=== PATIENT | male | born 1965 | race Caucasian/White ===

== ENCOUNTER 2023-03-01 13:42 | Outpatient (OUT) | payer BC, SELFPAY ==
[2023-03-01 14:45] LABS: Anion Gap 10.4; BUN Creatinine Ratio 17.8; Calcium 9.1 mg/dL (8.5-10.1); Carbon Dioxide 32.4 mmol/L (21.0-32.0); Chloride 103 mmol/L (98-107); Estimated GFR (African America >60 (>=60); Estimated GFR (Non-African Ame 54 (>=60); Glucose 119 mg/dL (74-106); Potassium 3.8 mmol/L (3.5-5.1); Sodium 142 mmol/L (136-145)
== END 2023-03-01 13:43 ==
PROVIDERS: PCP Family Medicine; Visit Provider Internal Medicine Interventional Cardiology
DX: I50.22 Chronic systolic (congestive) heart failure (principal)
CPT/HCPCS: 36415; 80048

== ENCOUNTER 2023-04-03 13:47 | Outpatient (OUT) | payer BC, SELFPAY ==
--- NOTE | 2023-04-03 12:00 | CA_ITS ---
Patient: TRACIE KOCH Exam Date: 04/03/2023 : 1965 Gender:M Ordering : DR VIET LUEVANO M.D. Admission #: [id number] Family : DR Parikhlas Dane . Order #: [id number] CLICK HERE TO VIEW EXAM ECHOCARDIOGRAM REPORT PROCEDURE: CA ECHO DOPPLER COMPLETE INDICATIONS: RT SIDED CHF, PULMONARY HTN, H/O MV Repair; 30 mm Physio-ring, commissuroplasty, CryoMAZE, PFO closure, 40 mm SCARLET AtriClip (03/19,) COMPARISON: None. DESCRIPTION: COMPLETE ECHOCARDIOGRAM Real-time transthoracic echocardiography with 2D, M-mode, spectral and color flow Doppler performed. QUALITY: Lumason contrast was administered due to suboptimal imaging for left ventricular opacification to improve delineation of endocardial boarders. LEFT VENTRICLE: Normal chamber size. Normal left ventricular wall thickness. LV EF: Global left ventricular systolic function is normal; visually estimated ejection fraction is 55 to 60%. Abnormal septal motion; this is not an unusual finding in the postoperative the patient. DIASTOLIC: Unable to assess diastolic function. ATRIAL SEPTUM: Inadequately seen. LEFT ATRIUM: Severe dilatation. RIGHT ATRIUM: Severe dilatation. RIGHT VENTRICLE: Moderate dilatation. Normal right ventricular systolic function. TRICUSPID VALVE: Poorly seen. Normal mobility and thickness. Mild to moderate tricuspid regurgitation. Moderate pulmonary hypertension. RVSP 56 mmHg MITRAL VALVE: Poorly seen. Mild mitral regurgitation. An annuloplasty ring is seen in the mitral position with abnormally high Doppler flows. No significant change from previous study. AORTIC VALVE: Poorly seen. Normal aortic valve. No evidence of aortic valve stenosis. No aortic regurgitation. AORTIC ROOT: Normal diameter and appearance. PULMONIC VALVE: Not well visualized. No stenosis. Trivial regurgitation. PERICARDIUM: No evidence of pericardial effusion. IVC: IVC is dilated without collapse CONCLUSION: 1. Global left ventricular systolic function is normal; visually estimated ejection fraction is 55 to 60% 2. Abnormal septal motion 3. Severe biatrial enlargement 4. The right ventricle is moderately dilated with normal systolic function 5. Mild to moderate tricuspid regurgitation 6. Moderately elevated right ventricular systolic pressure; RVSP 56 mmHg 7. An annuloplasty ring is seen in the mitral position with abnormally high Doppler flows 8. Mild mitral regurgitation 9. Valvular structures are poorly seen Adult Echocardiography Procedure Report Left Ventricle LVEDD (3.7 - 5.6 cm): 4.77 cm LVIVS thickness (0.6 - 1.2 cm): 0.91 cm LVOT Max Gradient: 2.84 mm[Hg] Peak Velocity (LVOT): 0.84 m/s LVOT Diameter 2.33 cm Left Atrium Mitral Valve Right Ventricle Aorta Ascending Ao Diam: 3.09 cm Aortic Valve AoV Area (Peak Kane): 3.25 cm2, 3.25 cm2 Peak Velocity(Antegrade Flow): 1.10 m/s Peak Gradient(Antegrade Flow): 4.85 mm[Hg] Tricuspid Valve Peak Velocity (Regurgitant Flow): 2.68 m/s, 3.13 m/s, 3.19 m/s Pulmonic Valve Peak Gradient: 3.87 mm[Hg] Right Atrium Dictated by: Piotr Jenkins M.D. on 04/04/2023 at 18:28 Approved by: Piotr Jenkins M.D. on 04/04/2023 at 18:34
== END 2023-04-03 13:48 | disposition home or self-care (01) ==
LOC: CARD 13:47
PROVIDERS: PCP Family Medicine; Visit Provider Internal Medicine Interventional Cardiology
DX: I50.813 Acute on chronic right heart failure (principal); I27.20 Pulmonary hypertension, unspecified; R93.1 Abnormal findings on diagnostic imaging of heart and coronary circulation; I08.1 Rheumatic disorders of both mitral and tricuspid valves; Z95.2 Presence of prosthetic heart valve
CPT/HCPCS: 93306; C8929

== ENCOUNTER 2023-08-29 07:51 | Outpatient (OUT) | payer BC, SELFPAY ==
[2023-08-29 08:07] LABS: Basophils Absolute Auto 0.1 10^3/uL (0.0-0.1); Basophils Percent Auto 1.1 % (0.2-2.0); Eosinophils Absolute Auto 0.3 10^3/uL (0.0-0.7); Eosinophils Percent Auto 3.3 % (0.9-7.0); Hematocrit 45.4 % (42.0-54.0); Hemoglobin 14.6 g/dL (14.0-18.0); Immature Granulocytes Abs Auto 0.05 10^3/uL (0.00-0.03); Immature Granulocytes Pct Auto 0.5 % (0.0-0.5); Lymphocytes Absolute Auto 2.6 10^3/uL (1.2-3.8); Lymphocytes Percent Auto 26.3 % (20.5-60.0); Mean Corpuscular HGB Conc 32.2 g/dL (29.9-35.2); Mean Corpuscular Hemoglobin 30.4 pg (25.9-34.0); Mean Corpuscular Volume 94.6 fL (80.0-94.0); Mean Platelet Volume 9.4 fL (9.5-13.5); Monocytes Percent Auto 10.1 % (1.7-12.0); Neutrophils Absolute Auto 5.8 10^3/uL (1.4-6.5); Neutrophils Percent Auto 58.7 % (43.0-75.0); Platelet Count 214 10^3/uL (150-450); Red Cell Distribution Width 13.1 % (11.0-15.0); White Blood Count 9.9 10^3/uL (4.0-11.0)
[2023-08-29 09:03] LABS: Estimated Average Glucose 123 mg/dL; Glycohemoglobin A1C 5.9 % (4.5-6.2)
[2023-08-29 09:09] LABS: Alanine Aminotransferase 22 U/L (16-63); Albumin Globulin Ratio 1.1; Albumin Level 3.8 g/dL (3.4-5.0); Alkaline Phosphatase 76 U/L (46-116); Anion Gap 9.2; Aspartate Amino Transferase 17 U/L (15-37); BUN Creatinine Ratio 18.7; Bilirubin Total 0.6 mg/dL (0.2-1.0); Calcium 8.8 mg/dL (8.5-10.1); Carbon Dioxide 33.1 mmol/L (21.0-32.0); Chloride 105 mmol/L (98-107); Chol HDL Ratio 3.9; Cholesterol 153 mg/dL (<=200); Estimated GFR (African America 58 (>=60); Estimated GFR (Non-African Ame 48 (>=60); Free T3 1.92 pg/mL (2.18-3.98); Globulin 3.6 g/dL; Glucose 108 mg/dL (74-106); HDL Cholesterol 39 mg/dL (40-60); Potassium 4.3 mmol/L (3.5-5.1); Sodium 143 mmol/L (136-145); Thyroid Stimulating Hormone 3.871 uIU/mL (0.358-3.740); Total Protein 7.4 g/dL (6.4-8.2); Triglycerides 97 mg/dL (<=150); VLDL CHOLESTEROL 19.4 mg/dL
[2023-08-29 09:16] LABS: Prostate Specific Antigen Scrn 0.54 ng/mL (<=4.00)
[2023-08-29 09:31] LABS: Uric Acid 10.9 mg/dL (3.5-7.2)
== END 2023-08-29 07:52 | disposition home or self-care (01) ==
LOC: LAB 07:52
PROVIDERS: PCP Family Medicine; Visit Provider Family Medicine
DX: Z00.00 Encounter for general adult medical examination without abnormal findings (principal); E78.5 Hyperlipidemia, unspecified; R73.09 Other abnormal glucose; Z12.5 Encounter for screening for malignant neoplasm of prostate; M25.50 Pain in unspecified joint
CPT/HCPCS: 36415; 80053; 80061; 83036; 84436; 84443; 84481; 84550; 85025; G0103

== ENCOUNTER 2023-10-04 13:27 | Outpatient (OUT) | payer BC, SELFPAY ==
--- OUTSIDE RECORDS SUMMARY | 2023-10-04 13:31 | XMS_ITS | CCD ---
Author Name Unknown Address [address] [place] [address] Organization [facility] [place] Care Team Providers Care Cyber Defense Incident Responder Name Role Phone TITUS VILLEGAS Referring Unavailable SELF, REFERRED Primary Care Unavailable MASROOR, TIMBO Attending Unavailable JIAN SYED Admitting Unavailable DC Procedure Practitioner Unavailab KRYS De La Torre Surgeon Unavailable DC Procedure Practitioner Unavailab le ILAN CABA Surgeon Unavailable DC Procedure Practitioner Unavailab le HEIDEOR, TIMBO Surgeon Unavailable DC Procedure Practitioner Unavailab MAY De La Rosa Surgeon Unavailable SHIKHA ALAMIR, MOSHRIK Attending Unavailable SHIKHA ALAMIR, MOSHRIK Admitting Unavailable HEIDEOR, TIMBO Referring Unavailable TITUS VILLEGAS Primary Care Unavailable EDGAR, DR MELIDA Owen Consulting Unavailable NELLY ., DR QURESHI Primary Care Unavailable WEST, DR MELIDA Owen Attending Unavailable WEST, DR MELIDA Owen Admitting Unavailable ZIEBER, DR LYNDA Gonzalez Consulting Unavailable WEST, DR MELIDA Owen Consulting Unavailable NELLY ., DR QURESHI Primary Care Unavailable WEST, DR MELIDA Owen Attending Unavailable WEST, DR MELIDA Owen Admitting Unavailable WEST, DR MELIDA Owen Consulting Unavailable NELLY ., DR QURESHI Primary Care Unavailable WEST, DR MELIDA Owen Attending Unavailable WEST, DR MELIDA Owen Admitting Unavailable WEST, DR MELIDA Owen Consulting Unavailable NELLY ., DR QURESHI Primary Care Unavailable WEST, DR MELIDA Owen Attending Unavailable WEST, DR MELIDA Owen Admitting Unavailable ZIEBER, DR LYNDA Gonzalez Consulting Unavailable WEST, DR MELIDA Owen Consulting Unavailable NELLY ., DR QURESHI Primary Care Unavailable WEST, DR MELIDA Owen Attending Unavailable WEST, DR MELIDA Owen Admitting Unavailable ZIEBER, DR LYNDA Gonzalez Consulting Unavailable WEST, DR MELIDA Owen Consulting Unavailable NELLY ., DR QURESHI Primary Care Unavailable WEST, DR MELIDA Owen Attending Unavailable EDGAR, DR MELIDA Owen Admitting Unavailable KAI RUFFIN Consulting Unavailable NELLY Lloyd, DR QURESHI Primary Care Unavailable LALY, KAI Attending Unavailable LALYAMBERA Admitting Unavailable MOUKARBEL, DR LLANOS Consulting Unavailable HOY ., DR QURESHI Primary Care Unavailable MOUKARBEL, DR LLANOS Attending Unavailable MOUKARBEL, DR LLANOS Admitting Unavailable MOUKARBEL, DR LLANOS Consulting Unavailable HOY ., DR QURESHI Primary Care Unavailable MOUKARBEL, DR LLANOS Attending Unavailable MOUKARBEL, DR LLANOS Admitting Unavailable LALYKAI Consulting Unavailable HOY ., DR QURESHI Primary Care Unavailable LALY, KAI Attending Unavailable LALY, KAI Admitting Unavailable MOUKARBEL, DR LLANOS Consulting Unavailable HOY ., DR QURESHI Primary Care Unavailable MISC, DR PACK Attending Unavailable MISC, DR PACK Admitting Unavailable HOY ., DR QURESHI Consulting Unavailable HOY ., DR QURESHI Primary Care Unavailable HOY ., DR QURESHI Attending Unavailable HOY ., DR QURESHI Admitting Unavailable HOY ., DR QURESHI Primary Care Unavailable HOY ., DR QURESHI Attending Unavailable HOY ., DR QURESHI Admitting Unavailable WEST, DR MELIDA Owen Consulting Unavailable HOY ., DR QURESHI Primary Care Unavailable WEST, DR MELIDA Owen Attending Unavailable WEST, DR MELIDA Owen Admitting Unavailable WEST, DR MELIDA Owen Consulting Unavailable HOY ., DR QURESHI Primary Care Unavailable WEST, DR MELIDA Owen Attending Unavailable WEST, DR MELIDA Owen Admitting Unavailable ZIEBER, DR LYNDA Gonzalez Consulting Unavailable WEST, DR MELIDA Owen Consulting Unavailable HOY ., DR QURESHI Primary Care Unavailable WEST, DR MELIDA Owen Attending Unavailable WEST, DR MELIDA Owen Admitting Unavailable MOUKARBEL, VIET Attending Unavailable MOUKARBEL, VIET Attending Unavailable VARGAS URIOSTEGUI Attending Unavailable MOUKARBEL, VIET Attending Unavailable Problems Active Problems Problem Classification Problem Date Documented Da te Episodic/Chronic Cardiac dysrhythmias (4 sources) Paroxysmal atrial fibrillation; Translations: [Atrial fibrillation] Onset: 10-16-2022 Chronic Congestive heart failure; nonhypertensive (20 sources) Chronic systolic (congestive) heart failure; Translations: [Acute on chronic right heart failure] Onset: 06-27-2022 Chronic Heart valve disorders (1 source) Rheumatic tricuspid insufficiency; Translations: [RHEUMATIC TRICUSPID INSUFFICIENCY] Onset: 11-15-2022 Chronic Pulmonary heart disease (2 sources) Pulmonary hypertension, unspecified; Translations: [Pulmonary hypertension, unspecified] Onset: 02-11-2023 Chronic Residual codes; unclassified (3 sources) Other specified postprocedural states; Translations: [OTH SPECIFIED POSTPROCEDURAL STATES] Onset: 10-16-2022 Episodic Unclassified (1 source) Atrial septal defect, unspecified; Translations: [Atrial septal defect, unspecified] Onset: 02-11-2023 Past or Other Problems Problem Classification Problem Date Documented Da te Episodic/Chronic Other aftercare (4 sources) Encounter for surgical aftercare following surgery on the circulatory system; Translations: [ENC SURG AFTRCARE FLW SURG CIRC SYS] Onset: 2 Episodic Other screening for suspected conditions (not mental disorders or infectious disease) (1 source) Encounter for screening for malignant neoplasm of prostate; Translations: [ENC SCREEN MALIG NEOPLASM PROSTATE] Onset: 2 Episodic Phlebitis; thrombophlebitis and thromboembolism (9 sources) Phlebitis and thrombophlebitis of superficial vessels of right lower extremity; Translations: [Phlebitis and thrombophlebitis of superficial vessels of left lower extremity] Onset: 2 Episodic Residual codes; unclassified (2 sources) Edema; Translations: [Edema] Onset: 3 Episodic Unclassified (1 source) Atrial septal defect, unspecified; Translations: [Atrial septal defect, unspecified] Onset: 3 Varicose veins of lower extremity (5 sources) Varicose veins of bilateral lower extremities with pain; Translations: [VARICOSE VNS UZIEL LOW EXTREM W/PAIN] Onset: 2 Episodic Results Test Name Value Interpretation Reference Range Facility Office Visiton 04-08-2023 Follow-up visit [id number] Tracie Crain 1965 M Date Provider Department Center 04/08/2023 [facility] Family History Problem Relation Age of Onset Atrial fibrillation Mother Alzheimer's disease Mother Family Status - Relation Status Age at Mother Level of Service:62886 DC OFFICE/OUTPATIENT ESTABLISHED MOD MDM 30-39 MIN Normal [facility] Office Visiton 02-11-2023 Follow-up visit [id number] Tracie Crain 1965 M Date Provider Department Center 02/11/2023 [facility] Family History Problem Relation Age of Onset Atrial fibrillation Mother Alzheimer's disease Mother Family Status - Relation Status Age at Mother Level of Service:38132 DC OFFICE/OUTPATIENT ESTABLISHED MOD MDM 30-39 MIN Normal [facility] ECHOCARDIO M/2D COMPLETEon 0 02-05-2023 ECHOCARDIO M/2D COMPLETE Patient: TRACIE CRAIN Exam Date: 02/05/2023 : 1965 Gender:M Ordering : DR VIET SALAS M.D. Admission #: [id number] Family : Order #: [id number] CLICK HERE TO VIEW EXAM ECHOCARDIOGRAM REPORT PROCEDURE: CARDIO PULMONARY ECHOCARDIO M/2D COMP INDICATIONS: Chronic systolic heart failure, Acute on chronic right-sided heart failure COMPARISON: None. DESCRIPTION: COMPLETE ECHOCARDIOGRAM Real-time transthoracic echocardiography with 2D, M-mode, spectral and color flow Doppler performed. QUALITY: Technical quality was good. LEFT VENTRICLE: Normal chamber size. Normal left ventricular wall thickness. D-shaped septum consistent with right ventricular pressure and/or volume overload. LV EF: Global left ventricular systolic function is normal. Calculated left ventricular ejection fraction is 60%. Abnormal septal motion. DIASTOLIC: Unable to assess diastolic function. ATRIAL SEPTUM: Inadequately seen. LEFT ATRIUM: Severe dilatation. RIGHT ATRIUM: Severe dilatation. RIGHT VENTRICLE: Severe dilatation. Severely decreased right ventricular systolic function. TRICUSPID VALVE: Normal mobility and thickness. No stenosis with moderate to severe regurgitation. Severe pulmonary hypertension. RVSP 75mmHg MITRAL VALVE: Mild mitral regurgitation. Mitral valve ring is well seated in the mitral position with elevated velocities and gradients. Moderate mitral valve stenosis. MVA 1.3cm2, MV Vmax 2.07m/s, MV mean gradient 6.7mmHg. AORTIC VALVE: Normal trileaflet appearance. No visible sclerosis. Normal leaflet mobility. No evidence of aortic valve stenosis. No aortic regurgitation. AORTIC ROOT: Normal diameter and appearance. PULMONIC VALVE: Normal thickness and mobility. No stenosis. No regurgitation. PERICARDIUM: No evidence of pericardial effusion. IVC: Severe dilatation. Measuring 3.0cm with no collapse. CONCLUSION: 1. Global left ventricular systolic function is normal; visually estimated ejection fraction is 60 to 65%. 2. D-shaped septum consistent with right ventricular pressure and/or volume overload. 3. Severe biatrial enlargement. 4. The right ventricle is severely dilated with significantly reduced systolic function. 5. Moderate to severe tricuspid regurgitation. 6. Severely elevated right-sided pressures; RVSP 75 mmHg. 7. Mitral valve ring is seen with elevated velocities; moderate mitral valve stenosis. Mild mitral regurgitation. Adult Echocardiography Procedure Report Left Ventricle LVEDD (3.7 - 5.6 cm): 4.98 cm LVESD (2.2 - 4.0 cm): 3.17 cm LVIVS thickness (0.6 - 1.2 cm): 1.15 cm LVPW thickness (0.5 - 1.0 cm): 0.96 cm e': 0.08 m/s E - e': 15.89 LVOT Max Gradient: 2.89 mm[Hg] Peak Velocity (LVOT): 0.85 m/s Mean Velocity (LVOT): 0.62 m/s LVOT Diameter 2.25 cm Left Ventricular Ejection Fraction: 65.74 %, 65.74 % Left Atrium LA Volume Index (2D A2C): 126.61 ml, 126.61 ml Left Atrium Systolic Dimension: 5.75 cm Mitral Valve MV E to A Ratio: 64.41 Mitral Valve A-Wave Peak Velocity: 0.02 m/s Mitral Valve E-Wave Peak Velocity: 1.32 m/s Right Ventricle RV Internal Diastolic Dimension: 7.00 cm, 7.02 cm Aorta AO Root Diam: 3.16 cm Ascending Ao Diam: 2.85 cm Aortic Valve AoV Area (Peak Kane): 2.78 cm2, 2.78 cm2 AoV Area (VTI): 2.62 cm2, 2.62 cm2 Peak Velocity(Antegrade Flow): 1.22 m/s Peak Gradient(Antegrade Flow): 5.93 mm[Hg] Mean Velocity(Antegrade Flow): 0.88 m/s Mean Gradient(Antegrade Flow): 3.48 mm[Hg] Velocity Time Integral: 25.68 cm Tricuspid Valve Peak Velocity (Regurgitant Flow): 3.39 m/s, 3.55 m/s, 3.86 m/s, 3.77 m/s Peak Velocity: 0.63 m/s Pulmonic Valve Mean Gradient: 3.10 mm[Hg], 3.53 mm[Hg], 3.38 mm[Hg] Mean Velocity: 0.86 m/s, 0.91 m/s, 0.89 m/s Peak Velocity: 1.12 m/s, 1.21 m/s, 1.21 m/s Peak Gradient: 5.00 mm[Hg], 5.90 mm[Hg], 5.90 mm[Hg] Right Atrium Right Atrium Systolic Pressure: 197.88 ml, 197.88 ml Dictated by: Piotr Jenkins M.D. on 02/05/2023 at 16:25 Approved by: Piotr Jenkins M.D. on 02/05/2023 at 16:31 Normal [facility] BNPon 12-19-2022 Natriuretic peptide B (Bld) [Mass/Vol] 859.0 pg/mL Normal <=900.0 [facility] Comment on above: Performed By: #### B MP, BNP #### [facility] [address] [place] [address] Dr. Leonie Beckham PROF CHEM 8 (BAS METB)on Anion gap [Moles/Vol] 9.9 mmol/L Normal [facility] Comment on above: Performed By: #### B MP, BNP #### [facility] [address] [place] [address] Dr. Leonie Beckham Calcium [Mass/Vol] 9.4 mg/dL Normal 8.5-10.1 [facility] Comment on above: Performed By: #### B MP, BNP #### [facility] [address] [place] [address] Dr. Leonie Beckham Chloride [Moles/Vol] 102 mmol/L Normal 98-107 [facility] Comment on above: Performed By: #### B MP, BNP #### [facility] [address] [place] [address] Dr. Leonie Beckham CO2 [Moles/Vol] 32.0 mmol/L Normal 21.0-32.0 [facility] Comment on above: Performed By: #### B MP, BNP #### [facility] [address] [place] [address] Dr. Leonie Beckham Creatinine [Mass/Vol] 1.17 mg/dL Normal 0.70-1.30 [facility] Comment on above: Performed By: #### B MP, BNP #### [facility] [address] [address] [address] Leonie Beckham EGFR-AF PAKISTANI >60 Normal >=60 [facility] Comment on above: Performed By: #### B MP, BNP #### [facility] [address] [address] [address] Leonie Beckham EGFR-NON AF PAKISTANI >60 Normal >=60 [facility] Comment on above: Performed By: #### B MP, BNP #### [facility] [address] [address] [address] Leonie Beckham Glucose [Mass/Vol] 106 mg/dL Normal 74-106 [facility] Comment on above: Performed By: #### B MP, BNP #### [facility] [address] [address] [address] Leonie Beckham Potassium [Moles/Vol] 3.9 mmol/L Normal 3.5-5.1 [facility] Comment on above: Performed By: #### B MP, BNP #### [facility] [address] [address] [address] Leonie Beckham Sodium [Moles/Vol] 140 mmol/L Normal 136-145 [facility] Comment on above: Performed By: #### B MP, BNP #### [facility] [address] [address] [address] Leonie Beckham Urea nitrogen [Mass/Vol] 25.0 mg/dL Critically high 7.0-18.0 [facility] Comment on above: Performed By: #### B MP, BNP #### [facility] [address] [address] [address] Leonie Beckham Urea nitrogen/Creatinine [Mass ratio] 21.4 mg/mg Normal [facility] Comment on above: Performed By: #### B MP, BNP #### [facility] [address] [address] [address] Leonie Beckham Office Visiton 11-19-2022 Follow-up visit [id number] Tracie Crain 1965 Date Provider Department Center 11/19/2022 [facility] CARD [facility] Family History Problem Relation Age of Onset Atrial fibrillation Mother Alzheimer's disease Mother Family Status - Relation Status Age at Mother Level of Service:00718 DC OFFICE/OUTPATIENT ESTABLISHED MOD MDM 30-39 MIN Reason for Visit and Comments: Congestive Heart Failure [127] Valve Disorder [3372] Normal [facility] ECHOCARDIO M/2D COMPLETEon 0 11-09-2022 ECHOCARDIO M/2D COMPLETE Patient: TRACIE CRAIN Exam Date: 11/09/2022 : 1965 Gender:M Ordering : DR VIET SALAS M.D. Admission #: [id number] Family : TITUS VILLEGAS . Order #: [id number] CLICK HERE TO VIEW EXAM ECHOCARDIOGRAM REPORT PROCEDURE: CARDIO PULMONARY ECHOCARDIO M/2D COMP INDICATIONS: Chronic right-sided heart failure, s/p mitral valve repair (ring) COMPARISON: None. DESCRIPTION: COMPLETE ECHOCARDIOGRAM Real-time transthoracic echocardiography with 2D, M-mode, spectral and color flow Doppler performed. QUALITY: Technical quality was good. 75 305# BP 126/74 LEFT VENTRICLE: Normal chamber size. Mild concentric left ventricular hypertrophy. Abnormal septal motion due to RV pressure or volume overload. LV EF: Normal left ventricular ejection fraction, (>55%). DIASTOLIC: ATRIAL SEPTUM: LEFT ATRIUM: Severe dilatation. RIGHT ATRIUM: Severe dilatation. RIGHT VENTRICLE: Moderate to Severe dilatation. Decreased right ventricular systolic function. TRICUSPID VALVE: Normal mobility and thickness. No stenosis with moderate regurgitation. Doppler studies reveal severely (>60) elevated right sided pressures. RVSP 73 mmHg MITRAL VALVE: Mild mitral valve stenosis. Trivial mitral regurgitation. Mean diastolic gradient 7 mmHg at heart rate of 78. Mitral valve ring visualized. AORTIC VALVE: Normal trileaflet appearance. No visible sclerosis. Normal leaflet mobility. No evidence of aortic valve stenosis. No aortic regurgitation. AORTIC ROOT: Normal diameter and appearance. PULMONIC VALVE: Normal thickness and mobility. No stenosis. Trivial regurgitation. PERICARDIUM: No evidence of pericardial effusion. IVC: Dilated IVC with partial collapse. PLEURA: CONCLUSION: 1. Left ventricle is normal in size with normal systolic function. LVEF is 55 to 60%. 2. Moderate to severe right ventricular dilatation with reduced systolic function. 3. Mitral valve status post ring repair with mildly increased Doppler flows consistent with mild stenosis. 4. Moderate tricuspid regurgitation. 5. Severely elevated right-sided pressures. 6. Severe biatrial dilatation. 7. The IVC is dilated with partial inspiratory collapse. Adult Echocardiography Procedure Report Left Ventricle LVEDD (3.7 - 5.6 cm): 4.14 cm LVESD (2.2 - 4.0 cm): 2.82 cm LVIVS thickness (0.6 - 1.2 cm): 1.37 cm LVPW thickness (0.5 - 1.0 cm): 1.31 cm e': 0.10 m/s LVOT Max Gradient: 3.41 mm[Hg] Peak Velocity (LVOT): 0.92 m/s Mean Velocity (LVOT): 0.71 m/s LVOT Diameter 2.50 cm Left Ventricular Ejection Fraction: 55-60 % Left Atrium LA Volume Index (2D A2C): 100.55 ml, 100.55 ml Left Atrium Systolic Dimension: 5.48 cm Mitral Valve Right Ventricle Aorta AO Root Diam: 3.52 cm Aortic Valve AoV Area (Peak Kane): 4.13 cm2, 4.13 cm2 Peak Velocity(Antegrade Flow): 1.09 m/s Peak Gradient(Antegrade Flow): 4.77 mm[Hg] Tricuspid Valve Peak Velocity (Regurgitant Flow): 3.51 m/s, 3.83 m/s, 3.84 m/s, 3.82 m/s Peak Velocity: 0.96 m/s Pulmonic Valve Peak Velocity: 0.98 m/s, 1.04 m/s Peak Gradient: 3.81 mm[Hg], 4.33 mm[Hg] Right Atrium Right Atrium Systolic Pressure: 109.59 ml, 109.59 ml Dictated by: Viet Salas M.D. on 11/09/2022 at 16:26 Approved by: Viet Salas M.D. on 11/09/2022 at 16:31 Normal [facility] Office Visiton 10-16-2022 Follow-up visit [id number] Tracie Crain 1965 M Date Provider Department Center 10/16/2022 [id number] URIOSETGUI [facility] Family History Problem Relation Age of Onset Atrial fibrillation Mother Alzheimer's disease Mother Family Status - Relation Status Age at Mother Level of Service:36958 DC OFFICE/OUTPATIENT ESTABLISHED LOW MDM 20-29 MIN Reason for Visit and Comments: Edema [[id number]] Congestive Heart Failure [127] Atrial Fibrillation [80] Normal [facility] PROF CHEM 8 (BILLY CHRISTIANSEN)on Anion gap [Moles/Vol] 8.0 mmol/L Normal [facility] Comment on above: Performed By: #### B MP #### [facility] [address] [address] [address] Leonie Beckham Calcium [Mass/Vol] 8.6 mg/dL Normal 8.5-10.1 [facility] Comment on above: Performed By: #### B MP #### [facility] [address] [place] [address] Dr. Leonie Beckham Chloride [Moles/Vol] 102 mmol/L Normal 98-107 [facility] Comment on above: Performed By: #### B MP #### [facility] [address] [address] [address] Leonie Beckham CO2 [Moles/Vol] 31.5 mmol/L Normal 21.0-32.0 [facility] Comment on above: Performed By: #### B MP #### [facility] [address] [place] [address] Dr. Leonie Beckham Creatinine [Mass/Vol] 1.13 mg/dL Normal 0.70-1.30 [facility] Comment on above: Performed By: #### B MP #### [facility] [address] [address] [address] Leonie Beckham EGFR-AF PAKISTANI >60 Normal >=60 [facility] Comment on above: Performed By: #### B MP #### [facility] [address] [address] [address] Leonie Beckham EGFR-NON AF PAKISTANI >60 Normal >=60 [facility] Comment on above: Performed By: #### B MP #### [facility] [address] [place] [address] Dr. Leonie Beckham Glucose [Mass/Vol] 100 mg/dL Normal 74-106 [facility] Comment on above: Performed By: #### B MP #### [facility] [address] [address] [address] Leonie Beckham Potassium [Moles/Vol] 3.5 mmol/L Normal 3.5-5.1 [facility] Comment on above: Performed By: #### B MP #### [facility] [address] [address] [address] Leonie Beckham Sodium [Moles/Vol] 138 mmol/L Normal 136-145 [facility] Comment on above: Performed By: #### B MP #### [facility] [address] [address] [address] Leonie Beckham Urea nitrogen [Mass/Vol] 24.0 mg/dL Critically high 7.0-18.0 [facility] Comment on above: Performed By: #### B MP #### [facility] [address] [address] [address] Leonie Beckham Urea nitrogen/Creatinine [Mass ratio] 21.2 mg/mg Normal [facility] Comment on above: Performed By: #### B MP #### [facility] [address] [address] [address] Leonie Beckham ECHOCARDIO M/2D COMPLETEon 0 06-27-2022 ECHOCARDIO M/2D COMPLETE Patient: TRACIE CRAIN Exam Date: 06/27/2022 : 1965 Gender:M Ordering : KAI RUFFIN [facility] Admission #: [id number] Family : DR TITUS VILLEGAS . Order #: [id number] CLICK HERE TO VIEW EXAM ECHOCARDIOGRAM REPORT PROCEDURE: CARDIO PULMONARY ECHOCARDIO M/2D COMP INDICATIONS: Systolic heart failure, mitral valve ring COMPARISON: None. DESCRIPTION: COMPLETE ECHOCARDIOGRAM Real-time transthoracic echocardiography with 2D, M-mode, spectral and color flow Doppler performed. QUALITY: Technical quality was good. 75 300# BP 116/78 LEFT VENTRICLE: Normal chamber size. Abnormal septal motion due to RV pressure or volume overload. LV EF: Normal left ventricular ejection fraction, (55%). DIASTOLIC: ATRIAL SEPTUM: LEFT ATRIUM: Severe dilatation. RIGHT ATRIUM: Severe dilatation. RIGHT VENTRICLE: Moderate dilatation. Decreased right ventricular systolic function. TRICUSPID VALVE: Normal mobility and thickness. No stenosis with moderate regurgitation. Doppler studies reveal severely (>60) elevated right sided pressures. RVSP is 70 mmHg MITRAL VALVE: Mild mitral valve stenosis, mean diastolic gradient 8 mmHg at a heart rate of 81 bpm. Trivial mitral regurgitation. Mitral valve ring is visualized. AORTIC VALVE: Normal trileaflet appearance. Thickened aortic valve. Normal leaflet mobility. No evidence of aortic valve stenosis. No aortic regurgitation. AORTIC ROOT: Normal diameter and appearance. PULMONIC VALVE: Normal thickness and mobility. No stenosis. No regurgitation. PERICARDIUM: No evidence of pericardial effusion. IVC: Dilated IVC (3.1 cm), with no collapse. PLEURA: CONCLUSION: 1. The left ventricle is normal in size. Systolic function is normal. LVEF is 55%. 2. The right ventricle is moderately dilated with reduced systolic function. 3. Mitral valve is status post ring repair with mildly increased Doppler flows. 4. Moderate tricuspid regurgitation. 5. Severely elevated right-sided pressures. RVSP is 70 mmHg. 6. The IVC is dilated with no inspiratory collapse. 7. No pericardial effusion. Adult Echocardiography Procedure Report Left Ventricle LVEDD (3.7 - 5.6 cm): 4.98 cm LVESD (2.2 - 4.0 cm): 3.46 cm LVIVS thickness (0.6 - 1.2 cm): 1.34 cm LVPW thickness (0.5 - 1.0 cm): 1.20 cm LVOT Max Gradient: 4.43 mm[Hg] Peak Velocity (LVOT): 1.05 m/s Mean Velocity (LVOT): 0.71 m/s LVOT Diameter 2.53 cm Left Ventricular Ejection Fraction: 55% Left Atrium LA Volume Index (2D A2C): 115.35 ml, 115.35 ml Left Atrium Systolic Dimension: 5.59 cm Mitral Valve Right Ventricle Aorta AO Root Diam: 3.64 cm Aortic Valve AoV Area (Peak Kane): 4.19 cm2, 4.24 cm2 AoV Area (VTI): 3.81 cm2, 3.59 cm2 Peak Velocity(Antegrade Flow): 1.25 m/s, 1.27 m/s Peak Gradient(Antegrade Flow): 6.20 mm[Hg], 6.49 mm[Hg] Mean Velocity(Antegrade Flow): 0.84 m/s, 0.88 m/s MeanGradient (Antegrade Flow): 3.27 mm[Hg], 3.56 mm[Hg] Velocity Time Integral: 28.27 cm, 25.04 cm Tricuspid Valve Peak Velocity (Regurgitant Flow): 3.34 m/s, 3.49 m/s, 3.46 m/s, 3.49 m/s, 3.46 m/s, 3.71 m/s Pulmonic Valve Peak Velocity: 0.90 m/s, 0.91 m/s Peak Gradient: 3.22 mm[Hg], 3.29 mm[Hg] Right Atrium Right Atrium Systolic Pressure: 94.02 ml, 94.02 ml Dictated by: Viet Salas M.D. on 06/27/2022 at 18:16 Approved by: Viet Salas M.D. on 06/27/2022 at 18:23 Normal [facility] VC CONSULT FOLLOWUPon 2021 VC CONSULT FOLLOWUP Patient: TRACIE CRAIN Exam Date: 06/13/2022 : 1965 Gender:M Ordering : DR MELIDA CUELLAR M.D. Admission #: [id number] Family : Order #: [id number] CLICK HERE TO VIEW EXAM RADIOLOGY REPORT PROCEDURE: [facility] CONSULTATION FOLLOWUP [facility] - OFFICE VISIT FOLLOW UP COMPARISON: VC CONSULT FOLLOWUP, 06/01/2022. VC CONSULT FOLLOWUP, 05/14/2022. PROGRESS NOTES: The patient reports minimal discomfort following micro foam chemical ablation of the left leg the patient did take some over the counter Tylenol. The patient has worn his compression stocking. The patient has followed our recommendations to walk 20-30 minutes once or twice per day since the procedure. Physical exam demonstrates multiple thrombosed varicose veins. Extensive patent bilateral incompetent varicose and reticular veins remain. Review of the ultrasound performed the same day demonstrates occlusive thrombus extending throughout the treated right leg varicose veins. Multiple dilated incompetent varicose veins remain. The patient would like to proceed with additional treatments as he continues to have leg pain, we will attempt pre-certification for additional treatment. IMPRESSION: 1. Successful ablation of right leg varicose veins 2. Persistent bilateral incompetent varicose veins PLAN: Precertification for micro foam chemical ablation of incompetent branch saphenous varicose veins Nurse notes, history and physical were reviewed and confirmed, see attached forms. The nurse was present throughout the physical exam and consultation Dictated by: Melida Cuellar MD on 06/13/2022 at 14:57 Approved by: Melida Cuellar MD on 06/13/2022 at 14:59 Normal [facility] VC EXT VENOUS RT LIMITEDon 0 06-13-2022 VC EXT VENOUS RT LIMITED Patient: TRACIE CRAIN Exam Date: 06/13/2022 : 1965 Gender:M Ordering : DR MELIDA CUELLAR M.D. Admission #: [id number] Family : Order #: [id number] CLICK HERE TO VIEW EXAM RADIOLOGY REPORT PROCEDURE: VEIN CENTER EXTREMITY VENOUS RIGHT LIMITED COMPARISON: VC EXT VENOUS RT LIMITED, 05/14/2022. INDICATIONS: Phlebitis and thrombophlebitis of superficial veins of right lower extremity I80.01 TECHNIQUE: Lower extremity olivo scale and Duplex Doppler evaluation of the deep venous system from the inguinal ligament through the calf veins. FINDINGS: REGION: Right lower extremity. THROMBI: Negative for DVT. Chemically induced thrombus in multiple varicose veins in the medial right leg. Associated referral manager distal medial also thrombosed 3.1 mm from PTV. COMPRESSIBILITY: Non-compressible AND partially compressible segments. FLOW: Areas of no flow. OTHER: Incompetent varicose vein proximal/lateral lower leg measures 4.4mm with 0.8s reflux. *Exam performed in accordance with [facility] practice guidelines- Peripheral venous ultrasound, December 24, 2009. CONCLUSION: Post ablation occlusion of treated incompetent varicose veins with residual incompetent varicose veins measuring up to 4.4 mm Dictated by: Melida Cuellar MD on 06/13/2022 at 15:42 Approved by: Melida Cuellar MD on 06/13/2022 at 15:42 Normal [facility] VC INJ FOAM SCLERO W US MLTI on 06-07-2022 VC INJ FOAM SCLERO W US MLTI Patient: TRACIE CRAIN. Exam Date: 06/07/2022 : 1965 Gender:M Ordering : DR MELIDA CUELLAR M.D. Admission #: [id number] Family : Order #: [id number] CLICK HERE TO VIEW EXAM RADIOLOGY REPORT PROCEDURE: VEIN CENTER INJECTION FOAM SCLEROSING SOLUTION WITH ULTRASOUND MULTIPLE VEINS COMPARISON: VC INJ FOAM SCLERO W US MLTI, 05/25/2022. Pre-operative Diagnosis: CEAP class C5 venous insufficiency with pain, tenderness, edema and incompetent right great saphenous vein and branch saphenous tributaries/varicose veins Post-operative Diagnosis: CEAP class C5 venous insufficiency with pain, tenderness, edema and incompetent right great saphenous vein and branch saphenous tributaries/varicose veins Procedure Performed: 1. Ultrasound-guided microfoam chemical ablation with Varithena(r) 2. Intraoperative ultrasound guidance Physician: Melida Cuellar M.D. Anesthesia: None Indications for Procedure: 57-year-old male who presents with a 15-20 year history of lower extremity varicose veins with multiple prior procedures. The patient symptoms culminated in active venous stasis ulcerations. The patient failed conservative medical therapy including medical compression stockings, exercise and analgesics. Prior procedures include intravenous laser ablation. Multiple incompetent varicosities of the right leg. Duplex scan showed reflux and enlarged diameters up to 9 mm. The patient underwent informed consent including management options where the complications of infection, bleeding, pain, and skin injury were discussed. Particular attention was spent discussing thrombus extension and deep vein thrombosis as well as the possibility of pulmonary embolus and treatment with oral or injectable blood thinners. Procedure: The patient walked to the procedure room. All applicable staff donned appropriate apparel. A procedure timeout was performed to confirm correct patient, correct extremity, correct procedure, and correct room set-up including presence of all applicable supplies, devices, and drugs. A duplex ultrasound, performed by myself confirmed the location and incompetence of right leg varicosities and their course marked on the skin together with the dilated tributaries. The extent of treatment of the vein and the associated varicosities was determined through ultrasound mapping. The patient was placed on the operating room table. The limb was prepped. The skin was punctured with a butterfly needle through the skin with the venous access needle and advanced under ultrasound guidance. The target limb was positioned at 45 degrees of elevation in relation to the torso. The Varithena(r) canister was previously activated and the canister was primed and purged as required in the instructions for use. The following injections were made: 8 mL aliquot of Varithena(r) was drawn into a sterile syringe. Injection into a 6 mm incompetent varicose vein distal medial lower leg, this a ventrally reached a tributary of the great saphenous vein 8 mL aliquot of Varithena(r) was drawn into a sterile syringe. Injection into a 9 mm incompetent varicose vein proximal medial lower leg this was a tributary of the great saphenous vein inserting at the level of the upper thigh Varithena(r) was slowly administered at 0.5-1.0 cc/second with close observation by ultrasound of its course in the injected veins. A total volume of 16 mL of Varithena(r) was used. During administration of Varithena(r), the patient was asked to dorsiflex the ankle to limit flow of Varithena(r) into perforating veins. Once appropriate spasm had been confirmed in the treated veins, the vascular catheter was removed from the leg and light pressure was applied over the puncture site for hemostasis The common femoral and deep superficial veins were then evaluated for flow and compressibility prior to dressing placement. The lower extremity was kept elevated at 45 degrees above the horizontal and cording material was applied over the saphenous segments and tributaries to allow for eccentric compression over the target vessels including the targeted saphenous vein(s). A multilayer dressing was applied consisting of foam pads, coban and thigh-high 20-30 mm Hg compression elastic support hose were placed on the patient. The leg was lowered only after compression had been applied and the patient was immediately ambulatory. The patient ambulated 10 minutes under supervision and was without apparent concerns at time of release Post-care instructions include advising patient to keep post-treatment bandages in place and dry for 48 hours, avoid extended periods of inactivity, avoid heavy exercise for one week, wear compression stockings on the treated leg continuously for two weeks, to walk daily for 10 minutes over the next month. The patient was instructed to take an anti-inflammatory medicine as needed and to follow up for (more content not included)... Normal [facility] VC CONSULT FOLLOWUPon 2021 VC CONSULT FOLLOWUP Patient: TRACIE CARIN Exam Date: 06/01/2022 : 1965 Gender:M Ordering : DR MELIDA CUELLAR M.D. Admission #: [id number] Family : Order #: [id number] CLICK HERE TO VIEW EXAM RADIOLOGY REPORT PROCEDURE: VEIN CENTER CONSULTATION FOLLOWUP VEIN CENTER - OFFICE VISIT FOLLOW UP COMPARISON: VC CONSULT FOLLOWUP, 05/14/2022. VC CONSULT FOLLOWUP, 05/04/2022. PROGRESS NOTES: The patient reports mild discomfort of the left leg following micro foam chemical ablation. The patient did not take any oral analgesics. The patient did wear his compression stocking. The patient has followed our recommendations to walk 20-30 minutes once or twice per day since the procedure. Patient reports some mild to moderate improvement in his original presenting symptoms. Physical exam demonstrates multiple thrombosed varicose veins. In the area of erythema and warmth measuring 18 x 4 cm is noted along the medial thigh and leg likely in related to treatments and representing an area of thrombophlebitis. I did recommend anti-inflammatories, specifically to 200 milligram tablets of ibuprofen twice per day for 7 days. Review of the ultrasound performed the same day demonstrates occlusive thrombus extending throughout the treated left leg veins with residual incompetent varicose veins measuring up to 5.5 mm. The patient expressed a desire to proceed with treatment of residual incompetent varicose veins. IMPRESSION: 1. Successful ablation of left leg incompetent tributaries/varicose veins 2. Persistent bilateral incompetent tributary/varicose veins PLAN: Micro foam chemical ablation right leg Nurse notes, history and physical were reviewed and confirmed, see attached forms. The nurse was present throughout the physical exam and consultation Dictated by: Melida Cuellar MD on 06/01/2022 at 09:43 Approved by: Melida Cuellar MD on 06/01/2022 at 09:48 Normal [facility] VC EXT VENOUS LT LIMITEDon 0 06-01-2022 VC EXT VENOUS LT LIMITED Patient: TRACIE CRAIN Exam Date: 06/01/2022 : 1965 Gender:M Ordering : DR MELIDA CUELLAR M.D. Admission #: [id number] Family : Order #: [id number] CLICK HERE TO VIEW EXAM RADIOLOGY REPORT PROCEDURE: VEIN CENTER EXTREMITY VENOUS LEFT LIMITED COMPARISON: VC EXT VENOUS LT LIMITED, 05/04/2022. INDICATIONS: PHLEBITIS AND THROMBOPHLEBITIS OF SUPERFICIAL VESSELS OF LEFT LOWER EXTREMITY I80.02 TECHNIQUE: Lower extremity olivo scale and Duplex Doppler evaluation of the deep venous system from the inguinal ligament through the calf veins. FINDINGS: REGION: Left lower extremity. THROMBI: Negative for DVT. Varithena induced thrombus visualized at dist/med calf and extends up to prox calf, and at dist/ant calf that extends up to mid calf. COMPRESSIBILITY: Non-compressible AND partially compressible segments. FLOW: Absent flow corresponding to thrombus OTHER: Patent varicose vein at prox/post calf 5.5mm with 0.8s reflux. Patent varicose vein mid/post calf 5.2mm with 1.4s reflux. *Exam performed in accordance with [facility] practice guidelines- Peripheral venous ultrasound, December 24, 2009. CONCLUSION: Post ablation occlusion of treated left leg varicose veins with residual incompetent varicose veins measuring up to 5.5 mm Dictated by: Melida Cuellar MD on 06/01/2022 at 09:28 Approved by: Melida Cuellar MD on 06/01/2022 at 09:29 Normal [facility] VC INJ FOAM SCLERO W US MLTI on 05-25-2022 VC INJ FOAM SCLERO W US MLTI Patient: TRACIE CRAIN Exam Date: 05/25/2022 : 1965 Gender:M Ordering : DR MELIDA CUELLAR M.D. Admission #: [id number] Family : Order #: [id number] CLICK HERE TO VIEW EXAM RADIOLOGY REPORT PROCEDURE: VEIN CENTER INJECTION FOAM SCLEROSING SOLUTION WITH ULTRASOUND MULTIPLE VEINS COMPARISON: None. Pre-operative Diagnosis: CEAP class C5 venous insufficiency with pain, tenderness, edema and incompetent branch saphenous vein, chronic venous insufficiency left leg secondary to venous incompetence Post-operative Diagnosis: CEAP class C5 venous insufficiency with pain, tenderness, edema and incompetent branch saphenous vein, chronic venous insufficiency left leg secondary to venous incompetence Procedure Performed: 1. Ultrasound-guided microfoam chemical ablation with Varithena(r) 2. Intraoperative ultrasound guidance Physician: Lynda Aguilar M.D. Anesthesia: None. Indications for Procedure: 56 year old male. Symptoms including chronic lower extremity dilated veins,, pain, swelling for many years despite conservative medical therapy including medical compression stockings, exercise and analgesics. Prior procedures include: Endovenous laser ablation. Multiple incompetent varicosities of the left leg. Duplex scan showed reflux and enlarged diameters up to 5 mm. The patient has undergone informed consent including management options where the complications of infection, bleeding, pain, and skin injury were discussed. Particular attention was spent discussing thrombus extension and deep vein thrombosis as well as the possibility of pulmonary embolus and treatment with oral or injectable blood thinners. Procedure: The patient walked to the procedure room. All applicable staff donned appropriate apparel. A procedure timeout was performed to confirm correct patient, correct extremity, correct procedure, and correct room set-up including presence of all applicable supplies, devices, and drugs. A duplex ultrasound, performed by myself confirmed the location and incompetence of branch saphenous varicosities and their course was marked on the skin together with the dilated tributaries. The extent of treatment of the veins and the associated varicosities was determined through ultrasound mapping. The skin was prepped and then punctured with a butterfly needle and advanced under ultrasound guidance. The Varithena(r) canister was activated and the canister was primed and purged as required in the instructions for use. Varithena(r) was drawn into a sterile syringe. Varithena(r) was slowly administered at 0.5-1.0 cc/second with close observation by ultrasound of its course in the vessels. Total volume utilized was: 15 mL (10 mL within an incompetent 5 mm branch saphenous varicosity of the anterior distal lower leg; 5 mL within an incompetent 4 mm varicosity of the distal medial lower leg). Following administration of Varithena(r), the leg was elevated and the patient was asked to repeatedly dorsiflex the ankle to limit flow of Varithena(r) into perforating veins. Once appropriate spasm had been confirmed in the treated veins, the vascular catheter was removed from the leg and light pressure was applied over the puncture site for hemostasis The common femoral and deep superficial veins were then evaluated for flow and compressibility prior to dressing placement. The lower extremity was kept elevated at 45 degrees above the horizontal and cording material was applied over the saphenous segments and tributaries to allow for eccentric compression over the target vessels including the targeted saphenous vein(s). A multilayer dressing was applied consisting of foam pads, coban and thigh-high 20-30 mm Hg compression elastic support hose were placed on the patient. The leg was lowered only after compression had been applied and the patient was immediately ambulatory. The patient ambulated 10 minutes under supervision and was without apparent concerns at time of release Post-care instructions include advising patient to keep post-treatment bandages in place and dry for 48 hours, avoid extended periods of inactivity, avoid heavy exercise for one week, wear compression stockings on the treated leg continuously for two weeks, to walk daily for 10 minutes over the next month. The patient was instructed to take an anti-inflammatory medicine as needed and to follow up for color duplex scan of the Saphenous veins, the treated branch saphenous varicosities, the adjacent deep veins, and additional treatment within 7 days. PERSONNEL: [employer] Chen R.N. Dictated by: Lynda Aguilar M.D. on 05/25/2022 at 11:41 Approved by: Lynda Aguilar M.D. on 05/25/2022 at 11:44 Normal [facility] VC CONSULT FOLLOWUPon 2021 VC CONSULT FOLLOWUP Patient: TRACIE CRAIN Exam Date: 05/14/2022 : 1965 Gender:M Ordering : DR MELIDA CUELLAR M.D. Admission #: [id number] Family : Order #: [id number] CLICK HERE TO VIEW EXAM RADIOLOGY REPORT PROCEDURE: VEIN CENTER CONSULTATION FOLLOWUP VEIN CENTER - OFFICE VISIT FOLLOW UP COMPARISON: VC CONSULT FOLLOWUP, 05/04/2022. PROGRESS NOTES: The patient reports no significant tenderness, sinus infection, or significant bruising. Slight improvement in leg symptoms. There has been interval reduction in varicosities. The patient has followed our recommendations to walk 20-30 minutes once or twice per day since the procedure. Physical exam demonstrates decrease in varicosities of the right leg. Persistent varicosities are identified along the right. Review of the ultrasound performed the same day demonstrates occlusive thrombus extending throughout the treated vein, see separate report, consistent with a successful ablation. No thrombus extending into or beyond the saphenofemoral junction. The patient expressed a desire to proceed with treatment of remaining incompetent varicosities. The patient was informed that treatment was a process and would require several procedures/sessions. IMPRESSION: 1. Successful ablation of the proximal right great saphenous vein, cephalad to a very tortuous segment. 2. Persistent incompetent saphenous veins and lower extremity symptoms PLAN: Microfoam chemical ablation of incompetent branch saphenous varicosities bilaterally. Nurse notes, history and physical were reviewed and confirmed, see attached forms. The nurse was present throughout the physical exam and consultation Dictated by: Lynda Aguilar M.D. on 05/14/2022 at 09:36 Approved by: Lynda Aguilar M.D. on 05/14/2022 at 09:41 Normal [facility] VC EXT VENOUS RT LIMITEDon 0 05-14-2022 VC EXT VENOUS RT LIMITED Patient: TRACIE CRAIN. Exam Date: 05/14/2022 : 1965 Gender:M Ordering : DR MELIDA CUELLAR M.D. Admission #: [id number] Family : Order #: [id number] CLICK HERE TO VIEW EXAM RADIOLOGY REPORT PROCEDURE: VEIN CENTER EXTREMITY VENOUS RIGHT LIMITED COMPARISON: None. INDICATIONS: Phlebitis and thrombophlebitis of superficial veins of right lower extremity I80.01 TECHNIQUE: Lower extremity olivo scale and Duplex Doppler evaluation of the deep venous system from the inguinal ligament through the calf veins. FINDINGS: REGION: Right lower extremity. THROMBI: Negative for DVT. Heat induced thrombus in the right GSV 2.5 cm from the SFJ and extends to approximately 8 cm from SFJ. COMPRESSIBILITY: Non-compressible segments. FLOW: Areas of no flow. OTHER: CONCLUSION: 1. Successful post ablation occlusion of treated segment of right great saphenous vein. Dictated by: Lynda Aguilar M.D. on 05/14/2022 at 09:24 Approved by: Lynda Aguilar M.D. on 05/14/2022 at 09:35 Normal [facility] VC ENDOVENOUS ABL PERFORATIN G RTon 05-10-2022 VC ENDOVENOUS ABL PERFORATING RT Patient: LOUANNRENO AGUEDA. Exam Date: 05/10/2022 : 1965 Gender:M Ordering : DR MELIDA CUELLAR M.D. Admission #: [id number] Family : Order #: [id number] CLICK HERE TO VIEW EXAM RADIOLOGY REPORT PROCEDURE: VEIN [facility]HWA[facility] ENDOVENOUS ABLATION FOR VEIN RIGHT GREAT SAPHENOUS VEIN COMPARISON: None. INDICATIONS: Pain co-occurrent and due to varicose veins of bilateral legs I83.813 OPERATIVE REPORT: Diagnosis: Superficial venous reflux, incompetent perforating veins Procedure: Endovenous laser ablation of the left referral manager(s) Procedure: The patient was positioned supine on the table and the leg was prepped and draped to allow for visualization during venous access. A sterile cover was draped over a 16 mhz ultrasound probe. Venous mapping was performed prior to the procedure noting location and size of vessel(s). Treatment 1: Proximal right great saphenous vein, 4 cm distal to the saphenofemoral junction. The vein measured 9 mm. Using a 30 gauge needle the entry site was anesthetized with 1 cc of 1% buffered lidocaine. Access was gained percutaneously, with a 21-gauge needle, into the proximal great saphenous vein under ultrasound guidance. The needle was advanced into the desired position . Attempt was made to advance a wire without success due to valves and or scarring.The pre-measured 400-micron fiber was then inserted into the needle and locked in place. The position of the fiber was imaged with ultrasound guidance. 25 cubic cm of anesthetic tumescent was injected with ultrasound visualization. A final positioning check of the laser fiber tip was performed. The laser was activated by means of a foot-pedal and the fiber and needle were withdrawn together in accordance to the desired joules per treatment area/spot weld. 4 areas/spot welds were performed, and the total number of joules delivered was 261. The total time of energy delivery was 32 seconds. A duplex ultrasound revealed compressibility and flow of the proximal great saphenous vein immediately after the procedure. Pressure was held on the outflow track , saphenofemoral junction, throughout the entire procedure and for 5 minutes following the procedure. Treatment 2: Great saphenous vein proximal to mid thigh. The great saphenous vein measured 10 mm. Using a 30 gauge needle the entry site was anesthetized with 1 cc of 1% buffered lidocaine. Access was gained percutaneously, with a 21-gauge needle, into the tortuous proximal to mid great saphenous vein under ultrasound guidance. The needle was advanced into the desired position . The pre-measured 400-micron fiber was then inserted into the needle and locked in place. The position of the fiber was imaged with ultrasound guidance. 15 cubic cm of anesthetic tumescent was injected with ultrasound visualization. A final positioning check of the laser fiber tip was performed. The laser was activated by means of a foot-pedal and the fiber and needle were withdrawn together in accordance to the desired joules per treatment area/spot weld. 1 area/spot weld performed, and the total number of joules delivered was 50. The total time of energy delivery was 6 seconds. A duplex ultrasound revealed compressibility and flow of the proximal great saphenous vein immediately after the procedure. Treatment 3: Great saphenous vein mid thigh. The great saphenous vein measured 8 mm. Using a 30 gauge needle the entry site was anesthetized with 1 cc of 1% buffered lidocaine. Access was gained percutaneously, with a 21-gauge needle, into the proximal great saphenous vein under ultrasound guidance. The needle was advanced into the desired position . Attempt was made to advance a wire without success due to valves and or scarring. The pre-measured 400-micron fiber was then inserted into the needle and locked in place. The position of the fiber was imaged with ultrasound guidance. 30 cubic cm of anesthetic tumescent was injected with ultrasound visualization. A final positioning check of the laser fiber tip was performed. The laser was activated by means of a foot-pedal and the fiber and needle were withdrawn together in accordance to the desired joules per treatment area/spot weld. 4 areas/spot welds were performed, and the total number of joules delivered was 245. The total time of energy delivery was 31 seconds. A duplex ultrasound revealed compressibility and flow of the proximal great saphenous vein immediately after the procedure. Pressure was held on the outflow track for 10 minutes. CONCLUSION: 1. Technically successful endovenous laser ablation of 3 separate areas of the proximal right great saphenous vein secondary to extensive tortuosity. Dictated by: Melida Cuellar MD on 05/10/2022 at 10:43 Approved by: Melida Cuellar MD on 05/10/2022 at 10:50 Normal [facility] VC CONSULT FOLLOWUPon 2021 VC CONSULT FOLLOWUP Patient: TRACIE CRAIN Exam Date: 05/04/2022 : 1965 Gender:M Ordering : DR MELIDA CUELLAR M.D. Admission #: [id number] Family : Order #: [id number] CLICK HERE TO VIEW EXAM RADIOLOGY REPORT PROCEDURE: VEIN CENTER CONSULTATION FOLLOWUP VEIN CENTER - OFFICE VISIT FOLLOW UP COMPARISON: None. PROGRESS NOTES: The patient reports bruising and some tenderness. There has been interval reduction in varicosities. The patient has followed our recommendations to walk 20-30 minutes once or twice per day since the procedure. Physical exam demonstrates decrease in varicosities of the left leg along with areas of bruising, and firmness of treated vein. Persistent varicosities are identified along the left. Review of the ultrasound performed the same day demonstrates occlusive thrombus extending throughout the treated vein, see separate report, consistent with a successful ablation. No thrombus extending into or beyond the saphenofemoral junction. The patient expressed a desire to proceed with treatment of remaining incompetent veins. The patient was informed that treatment was a process and would require several procedures/sessions. IMPRESSION: 1. Successful ablation of the left great saphenous vein 2. Persistent varicose veins and leg symptoms PLAN: Endovenous laser ablation of right great saphenous vein. Nurse notes, history and physical were reviewed and confirmed, see attached forms. The nurse was present throughout the physical exam and consultation Dictated by: Lynda Aguilar M.D. on 05/04/2022 at 08:32 Approved by: Lynda Aguilar M.D. on 05/04/2022 at 08:38 Normal [facility] VC EXT VENOUS LT LIMITEDon 0 05-04-2022 VC EXT VENOUS LT LIMITED Patient: TRACIE CRAIN Exam Date: 05/04/2022 : 1965 Gender:M Ordering : DR MELIDA CUELLAR M.D. Admission #: [id number] Family : Order #: [id number] CLICK HERE TO VIEW EXAM RADIOLOGY REPORT PROCEDURE: VEIN CENTER EXTREMITY VENOUS LEFT LIMITED COMPARISON: None. INDICATIONS: Phlebitis and thrombophlebitis of superficial veins of left lower extremity I80.02 TECHNIQUE: Lower extremity olivo scale and Duplex Doppler evaluation of the deep venous system from the inguinal ligament through the calf veins. FINDINGS: REGION: Left lower extremity. THROMBI: Negative for DVT. Heat induced thrombus visualized 1.8cm from SFJ. The heat induced thrombus is visualized from the SFJ to distal calf. Multiple varicose veins are also seen with heat induced thrombus. COMPRESSIBILITY: Non-compressible AND partially compressible segments. FLOW: Areas of no flow. OTHER: CONCLUSION: 1. Successful post ablation occlusion of left great saphenous vein. Dictated by: Lynda Aguilar M.D. on 05/04/2022 at 08:31 Approved by: Lynda Aguilar M.D. on 05/04/2022 at 08:32 Normal [facility] VC ENDOVENOUS ABL 1ST V LTon 04-27-2022 VC ENDOVENOUS ABL 1ST V LT Patient: TRACIE CRAIN Exam Date: 04/27/2022 : 1965 Gender:M Ordering : DR MELIDA CUELLAR M.D. Admission #: [id number] Family : Order #: [id number] CLICK HERE TO VIEW EXAM RADIOLOGY REPORT PROCEDURE: VEIN CENTER ENDOVENOUS ABLATION FIRST VEIN LEFT COMPARISON: None. INDICATIONS: Pain co-occurrent and due to varicose veins of bilateral legs I83.813 OPERATIVE REPORT: The risks and benefits of the procedure had been previously discussed, and were rediscussed at length. Informed written consent was obtained by and [employer]. Time out procedure was performed. The left lower extremity was prepared and draped in the usual sterile fashion to allow knee flexion in the sterile field. Duplex ultrasound probe was draped in a sterile cover, sterile transmission gel was used. Venous mapping was performed with the areas of dilation and large tributaries marked. The total length was 73 cm from the entry 3 cm above the medial malleolus to 3 cm below the saphenofemoral junction. The diameter of the greater saphenous vein ranged from 13 mm. A 30 gauge needle and 1% buffered lidocaine was used to anesthetize the entry site. A 4 mm incision was made with a scalpel and the saphenous vein was entered percutaneously under direct ultrasound guidance with a micropuncture set, a single stick was successful in gaining access. A micro-guide wire was inserted and the needle removed. A micro-set including a dilator was inserted over the microwire and the needle and dilator were removed. A 0.018 guide wire was inserted through the micro-set and threaded through the saphenous vein to the saphenofemoral junction. The dilator was removed and an introducer sheath was inserted over the wire until the end of the sheath entered the saphenofemoral junction. The dilator and wire were removed and the 600 micron fiber was introduced and placed and positioned so that it extended beyond the sheath and was 3 cm peripheral to the saphenofemoral femoral junction. Final position of the fiber was determined by ultrasound guidance and duplex imaging. Tumescent anesthetic was delivered by ultrasound guidance. Four hundred fifty cc of fluid was delivered along the entire course of the saphenous vein. The solution consisted of 500 cc of normal saline with 20mL of 1% lidocaine and 10 mL of sodium bicarbonate. A final positioning check was made. The energy source was turned on by means of the foot pedal and the fiber and sheath were withdrawn. The total number of Joules delivered was 3582. The laser was active for 448 seconds under continuous pulse, average laser use of 8 J. Laser time 9:05 a.m. to 9:36 a.m. for 1st segment April 27, 2022. Laser time 9:12 a.m. To 9:38 a.m. for 2nd segment April 27, 2022. A duplex ultrasound revealed compressibility and flow at the saphenofemoral junction immediately after the procedure. Hemostasis at the access site was achieved. The skin incision of the saphenous vein was closed with a 4 x 4. A compression stocking was applied. Postop instructions were given. A follow up appointment was recommended and scheduled. The patient tolerated the procedure well and was discharged in good condition. CONCLUSION: 1. Technically successful endovenous laser ablation of the left great saphenous vein. Dictated by: Lynda Aguilar M.D. on 04/27/2022 at 10:26 Approved by: Lynda Aguilar M.D. on 04/27/2022 at 10:32 Normal [facility] CBC AUTO DIFFon 04-05-2022 BASO # 0.1 103/ul Normal 0.0-0.1 [facility] Comment on above: Performed By: #### C BC ####[facility] [address] [place] [address]Dr. Kaleighlan Beckham Basophils/100 WBC (Bld) 1.2 % Normal 0.2-2.0 [facility] Comment on above: Performed By: #### C BC ####[facility] [address] [place] [address]Dr. Yilan Beckham EO # 0.3 103/ul Normal 0.0-0.7 [facility] Comment on above: Performed By: #### C BC ####[facility] [address] [place] [address]Dr. Yilan Beckham Eosinophils/100 WBC (Bld) 3.9 % Normal 0.9-7.0 [facility] Comment on above: Performed By: #### C BC ####[facility] [address] [place], [place] [address]Dr. Leonie Beckham Erythrocyte distribution width (RBC) [Ratio] 13.2 % Normal 11.0-15.0 [facility] Comment on above: Performed By: #### C BC ####[facility] [address] [place], [place] [address]Dr. Leonie Beckham Hematocrit (Bld) [Volume fraction] 43.5 % Normal 42.0-54.0 [facility] Comment on above: Performed By: #### C BC ####[facility] [address] [place], [place] [address]Dr. Kaleighjacob Beckham Hemoglobin (Bld) [Mass/Vol] 13.9 g/dL Critically low 14.0-18.0 [facility] Comment on above: Performed By: #### C BC ####[facility] [address] [place], [place] [address]Dr. Leonie Beckham IG # 0.03 10e3/ul Normal 0.00-0.03 [facility] Comment on above: Performed By: #### C BC ####[facility] [address] [place], [place] [address]Dr. Kaleighjacob Beckham IG % 0.4 % Normal 0.0-0.5 [facility] Comment on above: Performed By: #### C BC ####[facility] [address] [place], [place] [address]Dr. Leonie Beckham LYMPH # 2.0 103/ul Normal 1.2-3.8 [facility] Comment on above: Performed By: #### C BC ####[facility] [address] [place], [place] [address]Dr. Leonie Beckham Lymphocytes/100 WBC (Bld) 25.0 % Normal 20.5-60.0 [facility] Comment on above: Performed By: #### C BC ####[facility] [address] [place], [place] [address]Dr. Leonie Beckham MANUAL DIFF REQ NO Normal [facility] Comment on above: Performed By: #### C BC ####[facility] [address] [place], [place] [address]Dr. Leonie Beckham MCH (RBC) [Entitic mass] 30.2 pg Normal 25.9-34.0 [facility] Comment on above: Performed By: #### C BC ####[facility] [address] [place] [address]Dr. Leonie Beckham MCHC (RBC) [Mass/Vol] 32.0 g/dL Normal 29.9-35.2 [facility] Comment on above: Performed By: #### C BC ####[facility] [address] [place] [address]Dr. Leonie Chapincito MCV (RBC) [Entitic vol] 94.4 fL Critically high 80.0-94.0 [facility] Comment on above: Performed By: #### C BC ####[facility] [address] [place] [address]Dr. Leonie Chapincito MONO # 1.0 103/ul Critically high 0.3-0.8 [facility] Comment on above: Performed By: #### C BC ####[facility] [address] [place], [place] [address]Dr. Kaleighjacob Beckham Monocytes/100 WBC (Bld) 12.0 % Normal 1.7-12.0 [facility] Comment on above: Performed By: #### C BC ####[facility] [address] [place], [place] [address]Dr. Leonie Beckham NEUT # 4.6 103/ul Normal 1.4-6.5 [facility] Comment on above: Performed By: #### C BC ####[facility] [address] [place], [place] [address]Dr. Kaleighjacob Beckham Neutrophils/100 WBC (Bld) 57.5 % Normal 43.0-75.0 [facility] Comment on above: Performed By: #### C BC ####[facility] [address] [place] [address]Dr. Kaleighjacob Beckham Platelet mean volume (Bld) [Entitic vol] 9.4 fL Critically low 9.5-13.5 [facility] Comment on above: Performed By: #### C BC ####[facility] [address] [place], [place] [address]Ox. Leonie Beckham PLT 203 103/ul Normal 150-450 [facility] Comment on above: Performed By: #### C BC ####[facility] [address] [place], [place] [address]Er. Leonie Beckham RBC 4.61 106/ul Critically low 4.70-6.10 [facility] Comment on above: Performed By: #### C BC ####[facility] [address] [place] [id number]. Leonie Beckham WBC 8.0 103/ul Normal 4.0-11.0 [facility] Comment on above: Performed By: #### C BC ####[facility] [address] [place] [id number]. Leonie Beckham FREE T3on 04-05-2022 FREE T3 2.54 pg/mlL Normal 2.18-3.98 [facility] Comment on above: Performed By: #### T SH, LIPID, CMP, T4, FT3 ####[facility] [address] [place] [id number]. Leonie Beckham GLYCOHEMOGLOBIN A1Con 2021 ADA RECOMMENDATION SEE BELOW Normal [facility] Comment on above: Result Comment: ADA RECOMMENDED LIMIT 4.0 - 6.0 ADA THERAPEUTIC TARGET < 7.0 ACTION SUGGESTED > 7.0 Performed By: #### A 1C ####[facility] [address] [place] [id number]. Leonie Beckham Glucose [Mass/Vol] 126 mg/dL Normal [facility] Comment on above: Performed By: #### A 1C ####[facility] [address] [place] [id number]. Leonie Beckham HbA1c (Bld) [Mass fraction] 6.0 % Normal 4.5-6.2 [facility] Comment on above: Performed By: #### A 1C ####[facility] [address] [place] [id number]. Leonie Beckham LIPID PROFILEon 04-05-2022 CHOL-HDL RATIO NORM SEE BELOW Normal [facility] Comment on above: Result Comment: 3.3 - 4.4 LOW RISK 4.4 - 7.1 AVERAGE RISK 7.1 - 11.0 MODERATE RISK >11.0 HIGH RISK Performed By: #### T SH, LIPID, CMP, T4, FT3 ####[facility] [address] [place] [id number]. Leonie Beckham Cholesterol [Mass/Vol] 137 mg/dL Normal <=200 [facility] Comment on above: Performed By: #### T SH, LIPID, CMP, T4, FT3 ####[facility] [address] [place] [id number]. Leonie Beckham Cholesterol in HDL [Mass/Vol] 40 mg/dL Normal 40-60 [facility] Comment on above: Performed By: #### T SH, LIPID, CMP, T4, FT3 ####[facility] [address] [place] [address]Dr. Leonie Beckham Cholesterol in LDL [Mass/Vol] 84.0 mg/dL Normal [facility] Comment on above: Performed By: #### T SH, LIPID, CMP, T4, FT3 ####[facility] [address] [place] [address]Dr. Leonie Beckham Cholesterol.total/Ch olesterol in HDL [Mass ratio] 3.4 {ratio} Normal [facility] Comment on above: Performed By: #### T SH, LIPID, CMP, T4, FT3 ####[facility] [address] [place] [id number]. Kaleighjacob Beckham HDL NORMAL > or = 60 mg/dl - LO W CARDIOVASCULAR RISK <40 mg/dl - HIGH CARDIOVASCULAR RISK Normal [facility] Comment on above: Performed By: #### T SH, LIPID, CMP, T4, FT3 ####[facility] [address] [place] [address]Dr. Kaleighjacob Beckham LDL CALC NORMAL SEE BELOW Normal [facility] Comment on above: Result Comment: <100 mg/dl OPTIMAL 100 - 129 mg/dl NEAR OR ABOVE OPTIMAL 130 - 159 mg/dl BORDERLINE HIGH 160 - 189 mg/dl HIGH >190 mg/dl VERY HIGH Performed By: #### T SH, LIPID, CMP, T4, FT3 ####[facility] [address] [place] [address]Dr. Leonie Beckham Triglyceride [Mass/Vol] 65 mg/dL Normal <=150 [facility] Comment on above: Performed By: #### T SH, LIPID, CMP, T4, FT3 ####[facility] [address] [place] [address]Dr. Leonie Beckham VLDL CALC 13.0 mg/dL Normal [facility] Comment on above: Performed By: #### T SH, LIPID, CMP, T4, FT3 ####[facility] [address]hr[address] [place] [address]Dr. Leonie Beckham PROF 14(COMP METB)on 022 Albumin [Mass/Vol] 3.8 g/dL Normal 3.4-5.0 [facility] Comment on above: Performed By: #### T SH, LIPID, CMP, T4, FT3 ####[facility] [address] [place] [address]Dr. Leonie Beckham Albumin/Globulin [Mass ratio] 1.2 {ratio} Normal [facility] Comment on above: Performed By: #### T SH, LIPID, CMP, T4, FT3 ####[facility] [address] [place] [address]Dr. Leonie Beckham ALP [Catalytic activity/Vol] 81 U/L Normal 46-116 [facility] Comment on above: Performed By: #### T SH, LIPID, CMP, T4, FT3 ####[facility] [address] [place] [address]Dr. Leonie Beckham ALT [Catalytic activity/Vol] 35 U/L Normal 16-63 [facility] Comment on above: Performed By: #### T SH, LIPID, CMP, T4, FT3 ####[facility] [address] [place] [address]Dr. Leonie Beckham Anion gap [Moles/Vol] 10.8 mmol/L Normal [facility] Comment on above: Performed By: #### T SH, LIPID, CMP, T4, FT3 ####[facility] [address] [place] [address]Dr. Leonie Beckham AST [Catalytic activity/Vol] 22 U/L Normal 15-37 [facility] Comment on above: Performed By: #### T SH, LIPID, CMP, T4, FT3 ####[facility] [address] [place] [address]Dr. Leonie Beckham Bilirubin [Mass/Vol] 1.1 mg/dL Critically high 0.2-1.0 [facility] Comment on above: Performed By: #### T SH, LIPID, CMP, T4, FT3 ####[facility] [address] [place] [address]Dr. Leonie Beckham Calcium [Mass/Vol] 8.6 mg/dL Normal 8.5-10.1 [facility] Comment on above: Performed By: #### T SH, LIPID, CMP, T4, FT3 ####[facility] [address] [place], [place] [address]Dr. Leonie Beckham Chloride [Moles/Vol] 105 mmol/L Normal 98-107 [facility] Comment on above: Performed By: #### T SH, LIPID, CMP, T4, FT3 ####[facility] [address] [place] [address]Dr. Leonie Beckham CO2 [Moles/Vol] 28.2 mmol/L Normal 21.0-32.0 [facility] Comment on above: Performed By: #### T SH, LIPID, CMP, T4, FT3 ####[facility] [address] [place], [place] [address]Dr. Leonie Beckham Creatinine [Mass/Vol] 1.33 mg/dL Critically high 0.70-1.30 [facility] Comment on above: Performed By: #### T SH, LIPID, CMP, T4, FT3 ####[facility] [address] [place] [address]Dr. Leonie Beckham EGFR-AF PAKISTANI >60 Normal >=60 [facility] Comment on above: Performed By: #### T SH, LIPID, CMP, T4, FT3 ####[facility] [address] [place] [address]Dr. Loenie Beckham EGFR-NON AF PAKISTANI 55 mL/min/1.73m2 Critically low >=60 [facility] Comment on above: Performed By: #### T SH, LIPID, CMP, T4, FT3 ####[facility] [address] [place] [address]Dr. Leonie Beckham Globulin (S) [Mass/Vol] 3.3 g/dL Normal [facility] Comment on above: Performed By: #### T SH, LIPID, CMP, T4, FT3 ####[facility] [address] [place] [address]Dr. Leonie Beckham Glucose [Mass/Vol] 94 mg/dL Normal 74-106 [facility] Comment on above: Performed By: #### T SH, LIPID, CMP, T4, FT3 ####[facility] [address] [place] [address]Dr. Leonie Beckham Potassium [Moles/Vol] 4.0 mmol/L Normal 3.5-5.1 [facility] Comment on above: Performed By: #### T SH, LIPID, CMP, T4, FT3 ####[facility] [address] [place] [address]Dr. Leonie Beckham Protein [Mass/Vol] 7.1 g/dL Normal 6.4-8.2 [facility] Comment on above: Performed By: #### T SH, LIPID, CMP, T4, FT3 ####[facility] [address] [place] [address]Dr. Leonie Beckham Sodium [Moles/Vol] 140 mmol/L Normal 136-145 [facility] Comment on above: Performed By: #### T SH, LIPID, CMP, T4, FT3 ####[facility] [address] [place] [address]Dr. Leonie Beckham Urea nitrogen [Mass/Vol] 24.0 mg/dL Critically high 7.0-18.0 [facility] Comment on above: Performed By: #### T SH, LIPID, CMP, T4, FT3 ####[facility] [address] [place], [place] [address]Si. Leonie Beckham Urea nitrogen/Creatinine [Mass ratio] 18.0 mg/mg Normal [facility] Comment on above: Performed By: #### T SH, LIPID, CMP, T4, FT3 ####[facility] [address] [place], [place] [address]Wr. Leonie Beckham T4on 04-05-2022 T4 [Mass/Vol] 7.70 ug/dL Normal 4.50-12.10 [facility] Comment on above: Performed By: #### T SH, LIPID, CMP, T4, FT3 ####[facility] [address] [place] [id number]. Leonie Beckham TSHon 04-05-2022 TSH 3.042 uIU/mL Normal 0.358-3.740 [facility] Comment on above: Performed By: #### T SH, LIPID, CMP, T4, FT3 ####[facility] [address] [place], [place] [address]Se. Leonie Beckham VC COMP CONSULTATIONon 03-08 VC COMP CONSULTATION Patient: TRACIE CRAIN Exam Date: 03/08/2022 : 1965 Gender:M Ordering : DR TITUS VILLEGAS . Admission #: [id number] Family : Order #: [id number] CLICK HERE TO VIEW EXAM RADIOLOGY REPORT PROCEDURE: VC VEIN CENTER CONSULTATION VEIN CENTER - OFFICE VISIT INITIAL COMPARISON: None. PROGRESS NOTES: 56-year-old male who presents with a 15-20 year history of lower extremity varicose veins. The patient was treated else in vein center with intravenous laser ablation and sclerotherapy approximately 10 years ago but has had no treatment since. The patient complains of progressive bilateral lower extremity varicose veins culminated in and active bleeding and ulcer along the left lateral ankle/hindfoot requiring a visit to the emergency room in January of 2022. 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 The patient's symptoms are partially relieved by rest, leg elevation and over the counter oral analgesics. The patient has worn compression stockings for many years, continuously for the past 3 years with no significant relief. The patient denies any signs and symptoms to suggest arterial ischemia. The patient describes a family history significant for varicose veins in his mother, heart disease in his mother. Suicide in his father. Cancer in a maternal grandmother. Past surgical history significant for mitral valve replacement. The patient discontinued alcohol 3 years ago. The patient has never smoked. No illicit drug use. Past medical history significant for extensive cardiac disease including mitral valve insufficiency, aortic valve insufficiency, atrial fibrillation, atrial septal defect. The patient is on multiple medications, see separate medication list. The patient does report intermittent congestive heart failure with marked lower extremity swelling, under good control today. No history of deep venous thrombus or pulmonary embolus. See separate history and physical for medication list. Nursing notes were reviewed. After history and physical exam I discussed at length the pathophysiology of venous hypertension and possible treatments, therapies and strategies available. We discussed at length the importance of elevating the lower extremities above the level of the heart, increased physical activity and compression stocking use. We discussed alternatives including conservative therapy with compression stockings, surgical turn it is on ligation and stripping. We discussed intravenous laser ablation, micro foam chemical ablation and injection sclerotherapy at length. The patient's and his 's questions were answered. The risks and benefits were discussed. Ultrasound venous reflux study performed February 07, 2022 was discussed at length with the patient. The report demonstrates prior ablation of the great saphenous veins with residual incompetent remnants at the saphenofemoral junction and associated marked branch saphenous incompetent tributary/varicose veins measuring up to 13 mm. Bilateral small saphenous and anterior accessory saphenous vein venous insufficiency. Extensive bilateral incompetent varicose veins PHYSICAL EXAM: The right leg demonstrates extensive varicose, reticular and spider veins. Below knee subcutaneous edema. Moderate extensive hemosiderin staining. The left leg demonstrates extensive varicose reticular and spider veins. Below knee subcutaneous edema, moderate . Moderate extensive hemosiderin staining. Healed venous stasis ulcer/hemorrhagic vein along the left lateral hindfoot/ankle. Both thighs, legs and feet were symmetrically warm to the touch. Posterior tibial and dorsalis pedis pulses were not definitively palpated. Normal capillary refill of the toes. IMPRESSION: 1. Bilateral great saphenous, small saphenous and anterior accessory saphenous vein venous insufficiency with varying degrees of associated dilatation 2. Moderate to severe bilateral lower extremity incompetent branch saphenous tributaries/ varicose veins 3. Moderate bilateral lower extremity subcutaneous edema 4. Suspected mild peripheral arterial disease 5. CEAP: C5, Ep, Asp, Pr PLAN: 1. Endovenous laser ablation bilateral great saphenous vein/saphenous tributaries 2. Endovenous laser ablation bilateral anterior accessory saphenous vein and possibly left small saphenous vein 3. Micro foam chemical ablation bilateral branch saphenous incompetent tributaries 4. Injection sclerotherapy of reticular and spider veins and pre hemorrhagic veins 5. Elevated legs and increased physical activity for symptomatic relief Nurse notes, history and physical were reviewed and confirmed, see attached forms. The nurse was present throughout the physical exam and consultation Dictated by: Melida Cuellar MD on 03/08/2022 a (more content not included)... Normal [facility] Ambulatory Clinical Summaryo n 12-20-2020 Ambulatory Clinical Summary {[id number] Normal [facility] Coding Summary.on 12-20-2020 Coding Summary. CODING DATE: 12/19/2020 FINAL [facility] STATUS: Home (Routine DC) PAYOR: Commercial Insurance APC DESCRIPTION 5671 Level 1 Pathology ADMIT DX: REASON FOR VISIT DX: D48.5 Neoplasm of uncertain behavior of skin FINAL DX: PRINCIPAL: D48.5 Neoplasm of uncertain behavior of skin SECONDARY: L82.1 Other seborrheic keratosis PYMT PROC APC STAT DESCRIPTION DOCTOR NAME DATE NOTE: The code number assigned matches the documented diagnosis and / or procedure in the patient's chart. However, the narrative phrase printed from the coding software may appear abbreviated, or result in slightly different terminology. Coded By: Elba Choi CphT Date Saved: 12/19/2020 11:58 pm Normal [facility] General Surgery Office/Clini c Noteon 12-20-2020 General Surgery Office/Clinic Note Chief Complaint follow up excisional biopsy HPI Staff 11 day follow up post in office excisional biopsy lesion left lower back. Denies bleeding or drainage. Some itching. Sutures intact. History of Present Illness 11 days s/p excision changing lesion left lower back; pathology with verrucous seborrheic keratosis; doing well, denies pain or drainage from incision. Review of Systems ROS - Provider Constitutional: no fever, no sweats, no weight loss. Eyes: no glasses, no blurred vision, no visual loss. ENMT: no dentures, no hoarseness, no swallowing difficulties, no hearing loss, no ear infection(s), no nose bleeds. Cardiovascular: normal blood pressure, no chest pain, regular heartbeat, no heart murmur. Respiratory: no shortness of breath, no cough, no asthma, no wheezing. Gastrointestinal: no nausea, no vomiting, no diarrhea, no constipation, no blood in stool, no change in bowel habits, no abdominal pain, no hepatitis. Genitourinary: no kidney stones, no urine infection, no dysuria. Musculoskeletal: no pain, no weakness. Skin: no changing moles, no rash, no skin lumps. Neurologic: no seizures, no epilepsy, no headache. Psychiatric: no emotional or psychiatric problem. Heme/Lymph: no bleeding problems, no anemia, no blood clots, no transfusions. Allergy/Immunologic: no swollen lymph nodes/glands, no IV drug abuse. Other: Additional ROS info: Except as noted in the above Review of Systems and in the History of Present Illness, all other systems have been reviewed and are negative or noncontributory. Physical Exam Vitals & Measurements T: 36.8 ?C (Tympanic) skin: incision healing well, no erythema or drainage, no ecchymoses. Assessment/Plan 1. Raised seborrheic keratosis (L82.1: Other seborrheic keratosis) doing well, sutures removed, follow up if problems/questions. Follow-up With When Contact Information BONG ADKINS, Tracie Diaz if needed [employer] [place] [address]- Additional Instructions: Problem List/Past Medical History Ongoing Atrial fibrillation BMI 36.0-36.9,adult CHF (congestive heart failure) Depression Hypothyroidism Mitral valve insufficiency Mitral valve prolapse Neoplasm of uncertain behavior of skin of back Nevus Raised seborrheic keratosis Venous insufficiency (chronic) (peripheral) Historical Influenza Rosacea Varicose veins of lower extremity Procedure/Surgical History Cardioversion (02/28/2019), History of mitral valve repair (02/28/2019), History of hernia repair, Sclerotherapy. Medications aspirin 81 mg Chew Tab, Chewed, Daily ferrous sulfate 325 mg oral enteric coated tablet, Oral, Daily furosemide 40 mg Tab, 40 mg= 1 tab(s), Oral, Daily levothyroxine 50 mcg (0.05 mg) Tab, 50 mcg= 1 tab(s), Oral, Daily Metoprolol succinate 50 mg ER Tablet, Oral, Daily potassium chloride 20 mEq ER Tab, 20 mEq= 1 tab(s), Oral, Daily sertraline 50 mg Tab, 50 mg= 1 tab(s), Oral, Daily Allergies No Known Allergies Social History Alcohol Current, Beer, 1-2 times per week, 03/12/2019 Home/Environment Lives with Spouse., 03/12/2019 Tobacco Never (less than 100 in lifetime) Tobacco Use:. Never Smokeless Tobacco Use:. Cigarettes, Yes, 12/20/2020 Family History Cancer: Father. Heart disease: Mother. Hypertension: Mother. Primary malignant neoplasm of female breast: Mother. Immunizations Vaccine Date Status Comments influenza virus vaccine, inactivated - Not Given Patient Refuses Normal [facility] Comment on above: Result Comment: Elec tronically Signed By: BONG ADKINS, Tracie Sarah\Date and Time Signed: 12/20/20 15:58 EDT Ambulatory Clinical Summaryo n 12-09-2020 Ambulatory Clinical Summary {[id number] Normal [facility] General Surgery Office/Clini c Noteon 12-09-2020 General Surgery Office/Clinic Note HPI Staff 55 year old male here for excision of neoplasm left lower back. History of Present Illness here for excision of left lower back lesion, no change since initial evaluation. Review of Systems ROS - Provider Constitutional: no fever, no sweats, no weight loss. Eyes: no glasses, no blurred vision, no visual loss. ENMT: no dentures, no hoarseness, no swallowing difficulties, no hearing loss, no ear infection(s), no nose bleeds. Cardiovascular: normal blood pressure, no chest pain, regular heartbeat, no heart murmur. Respiratory: no shortness of breath, no cough, no asthma, no wheezing. Gastrointestinal: no nausea, no vomiting, no diarrhea, no constipation, no blood in stool, no change in bowel habits, no abdominal pain, no hepatitis. Genitourinary: no kidney stones, no urine infection, no dysuria. Musculoskeletal: no pain, no weakness. Skin: yes changing moles, no rash, no skin lumps. Neurologic: no seizures, no epilepsy, no headache. Psychiatric: no emotional or psychiatric problem. Heme/Lymph: no bleeding problems, no anemia, no blood clots, no transfusions. Allergy/Immunologic: no swollen lymph nodes/glands, no IV drug abuse. Other: Additional ROS info: Except as noted in the above Review of Systems and in the History of Present Illness, all other systems have been reviewed and are negative or noncontributory. Physical Exam skin: left lower back with raised 7 mm oval, verrucous lesion; no ulceration or pigmentation change. Procedure patient brought to procedure room, placed in prone position, area prepped and draped in sterile fashion; area anesthetized with 1 % lidocaine plain; lesion excised in an elliptical fashion down to subcutaneous fat; total length of excision 2 cm; subcutaneous tissue reapproximated with 5-0 vicryl suture; skin closed with 4-0 nylon simple and mattress sutures; tolerated well; ebl < 5 ml; sterile dressing applied. Assessment/Plan 1. 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 Medications aspirin 81 mg Chew Tab, Chewed, Daily ferrous sulfate 325 mg oral enteric coated tablet, Oral, Daily furosemide 40 mg Tab, 40 mg= 1 tab(s), Oral, Daily levothyroxine 50 mcg (0.05 mg) Tab, 50 mcg= 1 tab(s), Oral, Daily Metoprolol succinate 50 mg ER Tablet, Oral, Daily potassium chloride 20 mEq ER Tab, 20 mEq= 1 tab(s), Oral, Daily sertraline 50 mg Tab, 50 mg= 1 tab(s), Oral, Daily Allergies No Known Allergies Social History Alcohol Current, Beer, 1-2 times per week, 03/12/2019 Home/Environment Lives with Spouse., 03/12/2019 Tobacco Never (less than 100 in lifetime) Tobacco Use:. Never Smokeless Tobacco Use:. Cigarettes, Yes, 11/29/2020 Family History Cancer: Father. Heart disease: Mother. Hypertension: Mother. Primary malignant neoplasm of female breast: Mother. Immunizations Vaccine Date Status Comments influenza virus vaccine, inactivated - Not Given Patient Refuses [facility] Comment on above: Result Comment: Elec tronically Signed By: BONG ADKINS, Tracie R\.br\Date and Time Signed: 12/09/20 09:30 EST Provider Letter FTon 11-30 Provider Letter [facility] [place] Titus Villegas, [address] [place] [address] Re: TRACIE CRAIN Date of : 1965 Thank you for your referral of Tracie Crain who was seen on consultation on November 29, 2020, for growth on left lower back that is changing. An excisional biopsy is planned. I have enclosed my consultation notes for your review. I will be happy to follow Tracie. Sincerely, Tracie Tate MD General Surgery [facility] Ambulatory Clinical Summaryo n 11-29-2020 Ambulatory Clinical Summary {[id number] [facility] Physician Referralon 021 Physician Referral [id number] 20 [id number] 0CD:127 [facility] Operative Reporton 9 Operative Report MR#: [id number] [facility] Pt. Name: Tracie Crain Room #: CC Discharge Date: Birthdate: 1965 OPERATIVE REPORT DATE OF SURGERY: 05/12/2019 SURGEON: Ilan Danielson MD PROCEDURE PERFORMED: Transesophageal echocardiogram with cardioversion. INDICATION: Atrial fibrillation. PROCEDURE IN DETAIL: An informed consent was obtained from the patient after the explaining indications, risks, benefits, as well as alternatives. The patient understood and agreed, and signed the consent form. The patient was brought to the analytical lab technician and transesophageal echocardiogram was performed under conscious sedation. The patient obtained a total of 6 mg of IV Versed and 150 mcg of IV fentanyl during the procedure. Transesophageal echocardiogram did not show any left atrial thrombus. Left atrial appendage was already occluded from previous surgery. Full GERMAN report was created. After the transesophageal echocardiogram, a synchronized biphasic cardioversion was done at 200 joules of energy. The patient was successfully cardioverted to sinus rhythm and a postprocedure EKG was done to confirm sinus rhythm. No complications throughout the procedure. Electronically Signed by: Ilan Danielson MD 05/16/2019 07:24 P Ilan Danielson MD I was present for the entire procedure. Date Dict: 05/12/2019/10:14 Jhoan/James Reyna MD Date Trans: 05/12/2019 01:23 P/tylero [id number] cc: Titus Villegas M.D. [address] [id number] Timbo Black MD [address] [facility] [address] Normal [facility] BASIC METABOLIC PANELon 07 Calcium [Mass/Vol] 9.4 mg/dL Normal 8.6-10.3 [facility] Comment on above: Performed By: #### 0 0121, 15587, 51470, 66026, 60480 #### [facility] [address] [place] [address], [facility] Chloride [Moles/Vol] 99 mmol/L Normal 98-107 [facility] Comment on above: Performed By: #### 0 0121, 05541, 82162, 37551, 62732 #### [facility] [address] [place] [address], [place] CO2 [Moles/Vol] 31 mmol/L Normal 21-31 [facility] Comment on above: Performed By: #### 0 0121, 29643, 14173, 23770, 95149 #### [facility] [address] [place] [address], [place] Creatinine [Mass/Vol] 1.22 mg/dL Normal 0.70-1.30 [place] Comment on above: Performed By: #### 0 0121, 90106, 49382, 41039, 99865 #### [facility] [address] [place] [address], [place] GFR/1.73 sq M predicted among blacks MDRD (S/P/Bld) [Vol rate/Area] mL/min/{1.73_m2} Normal >60 [place] Comment on above: Performed By: #### 0 0121, 36322, 51816, 52967, 97701 #### [facility] [address] [place] [address], [place] GFR/1.73 sq M predicted among non-blacks MDRD (S/P/Bld) [Vol rate/Area] mL/min/{1.73_m2} Normal >60 [place] Comment on above: Performed By: #### 0 0121, 78845, 97575, 03042, 21608 #### [facility] [address] [place] [address], [place] Glucose [Mass/Vol] 126 mg/dL High 70-100 [facility] Comment on above: Performed By: #### 0 0121, 97542, 56269, 81830, 93735 #### [facility] [address] [place] [address], [place] Potassium [Moles/Vol] 3.8 mmol/L Normal 3.5-5.1 [facility] Comment on above: Performed By: #### 0 0121, 55673, 72834, 08657, 81871 #### [facility] [address] [facility] [place] [address] Sodium [Moles/Vol] 139 mmol/L Normal 136-145 [facility] Comment on above: Performed By: #### 0 0121, 16863, 07163, 29764, 64440 #### [facility] [address] Urea nitrogen [Mass/Vol] 15 mg/dL Normal 7-25 [facility] Comment on above: Performed By: #### 0 0121, 82840, 91276, 01576, 23920 #### [facility] [address] [facility]. [address] BNP (B-TYPE NATRIURETIC PEPT PACHECO)on 04-07-2019 Natriuretic peptide B (Bld) [Mass/Vol] 502 pg/mL High 0-100 [facility] Comment on above: Result Comment: Give n the appropriate clinical setting a BNP result of >100 pg/mL indicates congestive heart failure. Performed By: #### 0 0121, 91350, 49206, 28264, 65313 #### [facility] [address] [facility]. [address] CBC W/DIFFon 04-07-2019 ABS BASOPHILS 0.1 10*3/uL Normal 0.0-0.2 [facility] Comment on above: Performed By: #### 0 0121, 80239, 06874, 13965, 53699 #### [facility] [address] [facility]. [address] ABS IMM GRANS 0.0 10*3/uL Normal 0.0-0.2 [facility] Comment on above: Performed By: #### 0 0121, 62213, 85370, 55644, 82013 #### [facility] [address] [place] [address], [facility] ABS NEUTROPHILS 5.1 10*3/uL Normal 1.6-7.6 [facility] Comment on above: Performed By: #### 0 0121, 34491, 14172, 41254, 73461 #### [facility] [address] [place] [address], [facility] Basophils/100 WBC (Bld) 1.5 % High 0.0-1.0 [facility] Comment on above: Performed By: #### 0 0121, 36592, 47635, 95363, 65801 #### [facility] [address] [place] [address], [facility] Eosinophils (Bld) [#/Vol] 0.3 10*3/uL Normal 0.0-0.5 [place] Comment on above: Performed By: #### 0 0121, 36271, 36318, 20411, 02435 #### [facility] [address] [facility] [place] [address], [facility] Eosinophils/100 WBC (Bld) 3.7 % Normal 0.0-6.0 [facility] Comment on above: Performed By: #### 0 0121, 94766, 12016, 40095, 61994 #### [facility] [address] [facility] [place] [address], [facility] Erythrocyte distribution width (RBC) [Ratio] 13.2 % Normal 11.5-15.0 [facility] Comment on above: Performed By: #### 0 0121, 73500, 78931, 82665, 71377 #### [facility] [address] [facility] [place] [id number], [facility] Hematocrit (Bld) [Volume fraction] 39.2 % Normal 39.0-50.0 [facility] Comment on above: Performed By: #### 0 0121, 58813, 61435, 57969, 14170 #### [facility] [address] [facility] [place] [address], [facility] Hemoglobin (Bld) [Mass/Vol] 12.4 g/dL Low 13.0-17.0 [facility] Comment on above: Performed By: #### 0 0121, 32190, 19087, 19291, 78384 #### [facility] [address] [facility] [place] [address], [facility] IMMATURE GRANS 0.4 % Normal 0.0-1.0 [facility] Comment on above: Performed By: #### 0 0121, 52012, 49509, 99282, 18265 #### [facility] [address] [place] [address], [facility] Lymphocytes (Bld) [#/Vol] 1.7 10*3/uL Normal 1.2-4.0 [facility] Comment on above: Performed By: #### 0 0121, 53889, 18373, 27496, 01172 #### [facility] [address] Lymphocytes/100 WBC (Bld) 21.2 % Normal 20.0-45.0 [facility] Comment on above: Performed By: #### 0 0121, 97005, 18216, 35631, 30504 #### [facility] [address] [facility] [place] [address], [facility] MCH (RBC) [Entitic mass] 28.8 pg Normal 27.0-33.0 [facility] Comment on above: Performed By: #### 0 0121, 62466, 10657, 55281, 47308 #### [facility] [address] [place] [address], [facility] MCHC (RBC) [Mass/Vol] 31.6 g/dL Low 32.0-35.0 [facility] Comment on above: Performed By: #### 0 0121, 93046, 08255, 79062, 14651 #### [facility] [address] [place] [address], [facility] MCV (RBC) [Entitic vol] 91.0 fL Normal 82.0-98.0 [facility] Comment on above: Performed By: #### 0 0121, 49492, 11219, 55509, 05354 #### [facility] [address] [place] [address], [facility] Monocytes (Bld) [#/Vol] 0.9 10*3/uL Normal 0.1-1.0 [facility] Comment on above: Performed By: #### 0 0121, 01110, 35240, 82936, 40919 #### [facility] [address] [place] [address], [facility] MONOS 10.6 % Normal 5.0-12.0 [facility] Comment on above: Performed By: #### 0 0121, 75228, 24680, 68113, 17738 #### [facility] [address] [facility] [place] [address], [facility] Neutrophils/100 WBC (Bld) 62.6 % Normal 40.0-72.0 [facility] Comment on above: Performed By: #### 0 0121, 91131, 20847, 84070, 34124 #### [facility] [address] [facility] [place] [address], [facility] Nucleated RBC/100 WBC (Bld) [Ratio] 0 % Normal 0-0 [facility] Comment on above: Performed By: #### 0 0121, 31997, 72096, 88643, 81642 #### [facility] [address] [place] [address], [facility] PLAT CNT 520 10*3/uL High 150-400 [facility] Comment on above: Performed By: #### 0 0121, 77200, 24950, 66165, 61402 #### [facility] [address] [place] [address], [facility] RBC (Bld) [#/Vol] 4.31 10*6/uL Normal 4.20-5.70 [facility] Comment on above: Performed By: #### 0 0121, 81917, 33487, 60437, 10617 #### [facility] [address] [place] [address], [facility] WBC (Bld) [#/Vol] 8.20 10*3/uL Normal 4.00-10.60 [facility] Comment on above: Performed By: #### 0 0121, 13367, 32127, 89546, 51116 #### [facility] [address] HEMOGLOBINon 04-07-2019 Hemoglobin (Bld) [Mass/Vol] CANCELED Normal 13.0-17.0 [facility] Comment on above: Result Comment: The released value 12.3 was canceled by OCREEGER on 04/07/2019 12:48 Performed By: #### 0 0121, 32696, 79594, 43492, 17215 #### [facility] [address] BASIC METABOLIC PANELon 06-2 Calcium [Mass/Vol] 9.0 mg/dL Normal 8.6-10.3 [facility] Comment on above: Order Comment: No: D o not add to previous draw Performed By: #### 0 0121, 09426, 90416, 44571, 70237 #### [facility] [address] [place] [id number], [facility] Chloride [Moles/Vol] 98 mmol/L Normal 98-107 [facility] Comment on above: Order Comment: No: D o not add to previous draw Performed By: #### 0 0121, 70376, 67716, 67673, 69268 #### [facility] [address] [place] [address], [facility] CO2 [Moles/Vol] 29 mmol/L Normal 21-31 [facility] Comment on above: Order Comment: No: D o not add to previous draw Performed By: #### 0 0121, 53962, 88614, 43865, 80472 #### [facility] [address] [place] [address], [place] Creatinine [Mass/Vol] 1.00 mg/dL Normal 0.70-1.30 [place] Comment on above: Order Comment: No: D o not add to previous draw Performed By: #### 0 0121, 12621, 20258, 20453, 13352 #### [facility] [address] [place] [address], [place] GFR/1.73 sq M predicted among blacks MDRD (S/P/Bld) [Vol rate/Area] mL/min/{1.73_m2} Normal >60 [facility] Comment on above: Order Comment: No: D o not add to previous draw Performed By: #### 0 0121, 12180, 72729, 56413, 96072 #### [facility] [address] [place] [address], [facility] GFR/1.73 sq M predicted among non-blacks MDRD (S/P/Bld) [Vol rate/Area] mL/min/{1.73_m2} Normal >60 [facility] Comment on above: Order Comment: No: D o not add to previous draw Performed By: #### 0 0121, 61099, 42978, 46163, 99014 #### [facility] [address] [place] [address], [place] Glucose [Mass/Vol] 96 mg/dL Normal 70-100 [facility] Comment on above: Order Comment: No: D o not add to previous draw Performed By: #### 0 0121, 53195, 17408, 78111, 51074 #### [facility] [address] [place] [address], [place] Potassium [Moles/Vol] 3.1 mmol/L Low 3.5-5.1 [facility] Comment on above: Order Comment: No: D o not add to previous draw Performed By: #### 0 0121, 12804, 40715, 04764, 07931 #### [facility] [address] [place] [address], [place] Sodium [Moles/Vol] 138 mmol/L Normal 136-145 [facility] Comment on above: Order Comment: No: D o not add to previous draw Performed By: #### 0 0121, 09564, 39796, 74826, 66024 #### [facility] [address] [place] [address], [place] Urea nitrogen [Mass/Vol] 24 mg/dL Normal 7-25 [facility] Comment on above: Order Comment: No: D o not add to previous draw Performed By: #### 0 0121, 69504, 65853, 06581, 64377 #### [facility] [facility] [address] [place] [address], [facility] CBC COMPLETE BLOOD COUNTon 0 - Erythrocyte distribution width (RBC) [Ratio] 13.6 % Normal 11.5-15.0 [facility] Comment on above: Order Comment: No: D o not add to previous draw Performed By: #### 0 0121, 07955, 90612, 82598, 94003 #### [facility] [address] [place] [address], [place] Hematocrit (Bld) [Volume fraction] 34.7 % Low 39.0-50.0 [facility] Comment on above: Order Comment: No: D o not add to previous draw Performed By: #### 0 0121, 76490, 54865, 35070, 52250 #### [facility] [address] [place] [address], [place] Hemoglobin (Bld) [Mass/Vol] 11.3 g/dL Low 13.0-17.0 [facility] Comment on above: Order Comment: No: D o not add to previous draw Performed By: #### 0 0121, 83350, 57681, 77850, 93314 #### [facility] [address] [place] [address], [facility] MCH (RBC) [Entitic mass] 28.8 pg Normal 27.0-33.0 [facility] Comment on above: Order Comment: No: D o not add to previous draw Performed By: #### 0 0121, 36362, 87837, 97213, 35737 #### [facility] [address] [facility]. [address] MCHC (RBC) [Mass/Vol] 32.6 g/dL Normal 32.0-35.0 [facility] Comment on above: Order Comment: No: D o not add to previous draw Performed By: #### 0 0121, 69605, 64478, 17709, 56627 #### [facility] [address] [facility] [place] [address] MCV (RBC) [Entitic vol] 88.5 fL Normal 82.0-98.0 [facility] Comment on above: Order Comment: No: D o not add to previous draw Performed By: #### 0 0121, 16204, 72726, 43620, 97140 #### [facility] [address] Nucleated RBC/100 WBC (Bld) [Ratio] 0 % Normal 0-0 [facility] Comment on above: Order Comment: No: D o not add to previous draw Performed By: #### 0 0121, 79320, 96345, 44295, 18974 #### [facility] [address] [place] [address], [facility] PLAT CNT 205 10*3/uL Normal 150-400 [facility] Comment on above: Order Comment: No: D o not add to previous draw Performed By: #### 0 0121, 01769, 47664, 29154, 80542 #### [facility] [address] [place] [address], [place] RBC (Bld) [#/Vol] 3.92 10*6/uL Low 4.20-5.70 [facility] Comment on above: Order Comment: No: D o not add to previous draw Performed By: #### 0 0121, 89515, 37252, 95459, 09971 #### [facility] [address] [place] [address], [place] WBC (Bld) [#/Vol] 11.83 10*3/uL High 4.00-10.60 [facility] Comment on above: Order Comment: No: D o not add to previous draw Performed By: #### 0 0121, 57966, 88310, 74783, 08554 #### [facility] [address] [place] [address], [place] MAGNESIUM BLOODon 03-27-2019 Magnesium [Mass/Vol] 2.3 mg/dL Normal 1.9-2.7 [place] Comment on above: Order Comment: No: D o not add to previous draw Performed By: #### 0 0121, 57998, 46577, 82485, 42445 #### [facility] [address] [place] [address], [place] POC GLUCOSE LABon 03-27-2019 Glucose [Mass/Vol] 115 mg/dL High 70-100 [facility] Comment on above: Performed By: #### 0 0121, 36615, 08835, 40805, 48526 #### [facility] [address] [place] [address], [place] Glucose [Mass/Vol] 96 mg/dL Normal 70-100 [facility] Comment on above: Performed By: #### 0 0121, 10855, 25964, 98525, 19204 #### [place] [address], [facility] PORTABLE CHEST 1 VIEWon 03-01 PORTABLE CHEST 1 VIEW [facility] Department of Radiology [address] [place] [id number] ======== Patient Name: TRACIE CRAIN : 1965 Sex: M Age: Race: NA Pt. Location: [id number] Patient Status: I Ordered Date: 03/27/2019 5:00:00 AM Completed Date: 03/27/2019 04:24 AM Requesting Provider: TIMBO BLACK Attending Provider: TIMBO BLACK Report Copy To: Signs & Symptoms: Pneumonia History: Patient history not available Comments: R/O Pneumonia Exam: PORTABLE CHEST 1 VIEW ======== PORTABLE CHEST 1 VIEW 03/27/2019 4:24 AM EDT SIGNS AND SYMPTOMS: Pneumonia TECHNOLOGIST COMMENTS: cough, diminished breathe sounds bilaterally QUESTION FOR THE RADIOLOGIST: R/O Pneumonia PROTOCOL: AP(PA) view was obtained. COMPARISON: Chest radiograph March 26, 2019 FINDINGS: Cardiomediastinal silhouette remains enlarged. Trachea is midline. Valve replacement and atrial clip, unchanged. No significant change in bibasilar pleural parenchymal process. No pneumothorax. No acute osseous abnormality. No subdiaphragmatic free air. IMPRESSION: No significant interval change from prior study. Unchanged bibasilar pleural parenchymal process. Suspicious for right lower lobe pneumonia Approved by:Anai Alvarado on 03/27/2019 6:20 AM EDT. I, Divya Collins, have reviewed the images and report and concur with these findings. Electronically signed by:Divya Collins. Transcribed by: [email or web address], User Resident: ANAI ALVARADO Electronically Signed by: DIVYA COLLINS @ 03/27/2019 09:07 AM I personally read this/these film(s) with this resident Normal [facility] Comment on above: Order Comment: No: D o not add to previous draw BASIC METABOLIC PANELon 03-01 Calcium [Mass/Vol] 9.2 mg/dL Normal 8.6-10.3 [facility] Comment on above: Order Comment: No: D o not add to previous draw Performed By: #### 0 0121, 09754, 46851, 66348, 15366 #### [facility] [address] [place] [address], [place] Chloride [Moles/Vol] 101 mmol/L Normal 98-107 [place] Comment on above: Order Comment: No: D o not add to previous draw Performed By: #### 0 0121, 31670, 76127, 92969, 95369 #### [facility] [address] [place] [address], [place] CO2 [Moles/Vol] 27 mmol/L Normal 21-31 [facility] Comment on above: Order Comment: No: D o not add to previous draw Performed By: #### 0 0121, 40417, 95302, 46692, 37603 #### [facility] [address] [place] [address], [place] Creatinine [Mass/Vol] 0.93 mg/dL Normal 0.70-1.30 [facility] Comment on above: Order Comment: No: D o not add to previous draw Performed By: #### 0 0121, 99281, 30163, 80138, 43409 #### [facility] [address] [place] [address], [place] GFR/1.73 sq M predicted among blacks MDRD (S/P/Bld) [Vol rate/Area] mL/min/{1.73_m2} Normal >60 [facility] Comment on above: Order Comment: No: D o not add to previous draw Performed By: #### 0 0121, 70902, 63455, 00379, 08749 #### [facility] [address] [place] [address], [facility] GFR/1.73 sq M predicted among non-blacks MDRD (S/P/Bld) [Vol rate/Area] mL/min/{1.73_m2} Normal >60 [facility] Comment on above: Order Comment: No: D o not add to previous draw Performed By: #### 0 0121, 80178, 96461, 77815, 11611 #### [facility] [address] [place] [address], [facility] Glucose [Mass/Vol] 111 mg/dL High 70-100 [facility] Comment on above: Order Comment: No: D o not add to previous draw Performed By: #### 0 0121, 47671, 44791, 09180, 03607 #### [facility] [address] [place] [address], [facility] Potassium [Moles/Vol] 3.9 mmol/L Normal 3.5-5.1 [facility] Comment on above: Order Comment: No: D o not add to previous draw Performed By: #### 0 0121, 22351, 37595, 94545, 17469 #### [facility] [address] [place] [address], [place] Sodium [Moles/Vol] 137 mmol/L Normal 136-145 [facility] Comment on above: Order Comment: No: D o not add to previous draw Performed By: #### 0 0121, 53352, 34460, 84286, 56244 #### [facility] [address] Urea nitrogen [Mass/Vol] 26 mg/dL High 7-25 [facility] Comment on above: Order Comment: No: D o not add to previous draw Performed By: #### 0 0121, 29086, 55050, 79308, 13855 #### [facility] [address] [place] [address], [facility] CBC W/DIFFon 03-26-2019 ABS BASOPHILS 0.1 10*3/uL Normal 0.0-0.2 [facility] Comment on above: Order Comment: No: D o not add to previous draw Performed By: #### 0 0121, 02438, 42298, 35264, 37472 #### [facility] [address] ABS IMM GRANS 0.5 10*3/uL High 0.0-0.2 [facility] Comment on above: Order Comment: No: D o not add to previous draw Performed By: #### 0 0121, 66538, 01083, 20482, 98807 #### [facility] [address] ABS NEUTROPHILS 10.2 10*3/uL High 1.6-7.6 [facility] Comment on above: Order Comment: No: D o not add to previous draw Performed By: #### 0 0121, 64650, 63538, 14144, 79088 #### [facility] [address] [facility] [place] [address], [facility] Basophils/100 WBC (Bld) 0.6 % Normal 0.0-1.0 [facility] Comment on above: Order Comment: No: D o not add to previous draw Performed By: #### 0 0121, 28620, 70563, 64702, 42414 #### [facility] [address] [place] [address], [facility] Eosinophils (Bld) [#/Vol] 0.4 10*3/uL Normal 0.0-0.5 [facility] Comment on above: Order Comment: No: D o not add to previous draw Performed By: #### 0 0121, 93178, 10151, 68839, 91611 #### [facility] [address] [place] [address], [facility] Eosinophils/100 WBC (Bld) 2.8 % Normal 0.0-6.0 [facility] Comment on above: Order Comment: No: D o not add to previous draw Performed By: #### 0 0121, 83247, 29478, 30400, 66173 #### [facility] [address] [place] [address], [facility] Erythrocyte distribution width (RBC) [Ratio] 13.6 % Normal 11.5-15.0 [facility] Comment on above: Order Comment: No: D o not add to previous draw Performed By: #### 0 0121, 89685, 22913, 19408, 62321 #### [facility] [address] [place] [address], [facility] Hematocrit (Bld) [Volume fraction] 34.5 % Low 39.0-50.0 [facility] Comment on above: Order Comment: No: D o not add to previous draw Performed By: #### 0 0121, 42719, 30447, 17219, 85823 #### [facility] [address] [place] [address], [facility] Hemoglobin (Bld) [Mass/Vol] 11.3 g/dL Low 13.0-17.0 [facility] Comment on above: Order Comment: No: D o not add to previous draw Performed By: #### 0 0121, 96885, 90510, 23376, 73599 #### [facility] [address] [place] [address], [place] IMMATURE GRANS 3.5 % High 0.0-1.[address] [facility] Comment on above: Order Comment: No: D o not add to previous draw Performed By: #### 0 0121, 69180, 30576, 69061, 78841 #### [facility] [address] [facility] [place] [address], [facility] Lymphocytes (Bld) [#/Vol] 1.3 10*3/uL Normal 1.2-4.0 [facility] Comment on above: Order Comment: No: D o not add to previous draw Performed By: #### 0 0121, 00173, 57912, 37927, 45617 #### [facility] [address] [facility] [place] [address], [facility] Lymphocytes/100 WBC (Bld) 9.2 % Low 20.0-45.0 [facility] Comment on above: Order Comment: No: D o not add to previous draw Performed By: #### 0 0121, 93338, 98036, 71918, 65450 #### [facility] [address] [facility] [place] [address], [facility] MCH (RBC) [Entitic mass] 28.9 pg Normal 27.0-33.0 [facility] Comment on above: Order Comment: No: D o not add to previous draw Performed By: #### 0 0121, 03337, 99527, 00317, 22236 #### [facility] [address] [facility] [address], [facility] MCHC (RBC) [Mass/Vol] 32.8 g/dL Normal 32.0-35.0 [facility] Comment on above: Order Comment: No: D o not add to previous draw Performed By: #### 0 0121, 84414, 73649, 00721, 34248 #### [facility] [address] [place] [address], [facility] MCV (RBC) [Entitic vol] 88.2 fL Normal 82.0-98.0 [facility] Comment on above: Order Comment: No: D o not add to previous draw Performed By: #### 0 0121, 95289, 60097, 01664, 78320 #### [facility] [address] [place] [address], [facility] Monocytes (Bld) [#/Vol] 1.7 10*3/uL High 0.1-1.0 [facility] Comment on above: Order Comment: No: D o not add to previous draw Performed By: #### 0 0121, 60746, 91387, 05820, 38992 #### [facility] [address] [place] [address], [place] MONOS 11.7 % Normal 5.0-12.0 [facility] Comment on above: Order Comment: No: D o not add to previous draw Performed By: #### 0 0121, 94730, 40115, 81721, 41711 #### [facility] [address] [place] [address], [facility] Neutrophils/100 WBC (Bld) 72.2 % High 40.0-72.0 [facility] Comment on above: Order Comment: No: D o not add to previous draw Performed By: #### 0 0121, 63457, 62485, 84472, 71198 #### [facility] [address] [place] [address], [facility] Nucleated RBC/100 WBC (Bld) [Ratio] 0 % Normal 0-0 [facility] Comment on above: Order Comment: No: D o not add to previous draw Performed By: #### 0 0121, 85921, 53184, 76025, 62133 #### [facility] [address] [place] [address], [place] PLAT CNT 215 10*3/uL Normal 150-400 [facility] Comment on above: Order Comment: No: D o not add to previous draw Performed By: #### 0 0121, 32926, 04300, 28976, 32426 #### [facility] [address] [place] [address], [place] RBC (Bld) [#/Vol] 3.91 10*6/uL Low 4.20-5.70 [facility] Comment on above: Order Comment: No: D o not add to previous draw Performed By: #### 0 0121, 31068, 13816, 84158, 09163 #### [facility] [address] [place] [address], [place] WBC (Bld) [#/Vol] 14.17 10*3/uL High 4.00-10.60 [facility] Comment on above: Order Comment: No: D o not add to previous draw Performed By: #### 0 0121, 77273, 35943, 84339, 60440 #### [facility] [address] [place] [address], [place] POC GLUCOSE LABon 03-26-2019 Glucose [Mass/Vol] 129 mg/dL High 70-100 [facility] Comment on above: Performed By: #### 0 0121, 81534, 64032, 99739, 00040 #### [facility] [address] [place] [address], [place] Glucose [Mass/Vol] 129 mg/dL High 70-100 [facility] Comment on above: Performed By: #### 0 0121, 84346, 16468, 67157, 79290 #### [facility] [address] [place] [address], [place] Glucose [Mass/Vol] 130 mg/dL High 70-100 [facility] Comment on above: Performed By: #### 0 0121, 69012, 43651, 09037, 25203 #### [facility] [address] [place] [address], [place] Glucose [Mass/Vol] 91 mg/dL Normal 70-100 [facility] Comment on above: Performed By: #### 0 0121, 68393, 04414, 31111, 13546 #### [address] [place] [address], [facility] PORTABLE CHEST 1 VIEWon 03-01 PORTABLE CHEST 1 VIEW [facility] Department of Radiology [address] [place] [phone] ======== Patient Name: TRACIE CRAIN : 1965 Sex: M Age: Race: NA Pt. Location: [id number] Patient Status: I Ordered Date: 03/26/2019 7:00:00 AM Completed Date: 03/26/2019 06:36 AM Requesting Provider: TIMBO BLACK Attending Provider: JIAN SYED Report Copy To: Signs & Symptoms: Post Chest Tube Removal History: Patient history not available Comments: R/O Atelectasis Exam: PORTABLE CHEST 1 VIEW ======== PORTABLE CHEST 1 VIEW 03/26/2019 6:36 AM EDT SIGNS AND SYMPTOMS: Post Chest Tube Removal TECHNOLOGIST COMMENTS: short of breath, cough QUESTION FOR THE RADIOLOGIST: R/O Atelectasis PROTOCOL: AP(PA) view was obtained. COMPARISON: March 25, 2019 FINDINGS: Trachea is midline. Cardiac mediastinal silhouette is unchanged. Left atrial appendage and valve replacement recently demonstrated. Silhouetting of the left hemidiaphragm. There is a patchy opacity in the right lung base. There is worsening aeration of the right lung pneumothorax.. IMPRESSION: Worsening atelectasis versus pneumonia in the left lung base. Worsening airspace disease in the right lung base. Possible pneumonia Right chest tube removed. No evidence of pneumothorax Stable cardiomegaly and some pulmonary venous congestion likely representing baseline congestive heart failure Approved by:Kareem Liao on 03/26/2019 8:11 AM EDT. I, Divya Collins, have reviewed the images and report and concur with these findings. Electronically signed by:Divya Collins. Transcribed by: [email or web address], User Resident: KAREEM LIAO Electronically Signed by: DIVYA COLLINS @ 03/26/2019 10:03 AM I personally read this/these film(s) with this resident Normal [facility] Comment on above: Order Comment: No: D o not add to previous draw BASIC METABOLIC PANELon 03-01 Calcium [Mass/Vol] 9.1 mg/dL Normal 8.6-10.3 [facility] Comment on above: Order Comment: << On admission If not done in ED>> No: Do not add to previous draw Performed By: #### 0 0121, 43108, 46697, 31808, 07901 #### [facility] [address] [place] [address], [facility] Chloride [Moles/Vol] 98 mmol/L Normal 98-107 [place] Comment on above: Order Comment: << On admission If not done in ED>> No: Do not add to previous draw Performed By: #### 0 0121, 09983, 95170, 95786, 07162 #### [facility] [address] [place] [address], [place] CO2 [Moles/Vol] 29 mmol/L Normal 21-31 [facility] Comment on above: Order Comment: << On admission If not done in ED>> No: Do not add to previous draw Performed By: #### 0 0121, 17667, 36949, 93045, 72961 #### [facility] [address] [place] [address], [place] Creatinine [Mass/Vol] 1.01 mg/dL Normal 0.70-1.30 [facility] Comment on above: Order Comment: << On admission If not done in ED>> No: Do not add to previous draw Performed By: #### 0 0121, 20852, 05144, 87403, 66935 #### [facility] [address] [place] [address], [facility] GFR/1.73 sq M predicted among blacks MDRD (S/P/Bld) [Vol rate/Area] mL/min/{1.73_m2} Normal >60 [facility] Comment on above: Order Comment: << On admission If not done in ED>> No: Do not add to previous draw Performed By: #### 0 0121, 31224, 24103, 71017, 18340 #### [facility] [address] [place] [address], [facility] GFR/1.73 sq M predicted among non-blacks MDRD (S/P/Bld) [Vol rate/Area] mL/min/{1.73_m2} Normal >60 [facility] Comment on above: Order Comment: << On admission If not done in ED>> No: Do not add to previous draw Performed By: #### 0 0121, 84959, 47375, 85439, 00766 #### [facility] [address] [place] [address], [facility] Glucose [Mass/Vol] 123 mg/dL High 70-100 [facility] Comment on above: Order Comment: << On admission If not done in ED>> No: Do not add to previous draw Performed By: #### 0 0121, 90724, 15925, 22320, 69900 #### [facility] [address] [place] [address], [facility] Potassium [Moles/Vol] 3.9 mmol/L Normal 3.5-5.1 [facility] Comment on above: Order Comment: << On admission If not done in ED>> No: Do not add to previous draw Performed By: #### 0 0121, 92722, 67922, 72442, 20525 #### [facility] [address] [facility] Sodium [Moles/Vol] 134 mmol/L Low 136-145 [facility] Comment on above: Order Comment: << On admission If not done in ED>> No: Do not add to previous draw Performed By: #### 0 0121, 81700, 09032, 88426, 40409 #### [facility] [address] [facility] Urea nitrogen [Mass/Vol] 29 mg/dL High 7-25 [facility] Comment on above: Order Comment: << On admission If not done in ED>> No: Do not add to previous draw Performed By: #### 0 0121, 71278, 55122, 71473, 72727 #### [facility] [address] CBC W/DIFFon 03-25-2019 ABS BASOPHILS 0.1 10*3/uL Normal 0.0-0.2 [facility] Comment on above: Order Comment: << On admission If not done in ED>> No: Do not add to previous draw Performed By: #### 0 0121, 19327, 51954, 75921, 35314 #### [facility] [address] ABS NEUTROPHILS 11.2 10*3/uL High 1.6-7.6 [facility] Comment on above: Order Comment: << On admission If not done in ED>> No: Do not add to previous draw Performed By: #### 0 0121, 60739, 27601, 86262, 79498 #### [facility] [address] [facility]. [address] Basophils/100 WBC (Bld) 0.9 % Normal 0.0-1.0 [facility] Comment on above: Order Comment: << On admission If not done in ED>> No: Do not add to previous draw Performed By: #### 0 0121, 97255, 47096, 30833, 21722 #### [facility] [address] [place] [address], [facility] Eosinophils (Bld) [#/Vol] 0.1 10*3/uL Normal 0.0-0.5 [place] Comment on above: Order Comment: << On admission If not done in ED>> No: Do not add to previous draw Performed By: #### 0 0121, 57579, 26950, 02531, 26593 #### [facility] [address] [place] [address], [facility] Eosinophils/100 WBC (Bld) 0.9 % Normal 0.0-6.0 [facility] Comment on above: Order Comment: << On admission If not done in ED>> No: Do not add to previous draw Performed By: #### 0 0121, 56816, 31116, 56579, 11501 #### [facility] [address] [place], [place] [address] [place] [address] Erythrocyte distribution width (RBC) [Ratio] 13.4 % Normal 11.5-15.0 [facility] [facility] Comment on above: Order Comment: << On admission If not done in ED>> No: Do not add to previous draw Performed By: #### 0 0121, 53926, 97150, 03091, 88884 #### [facility] [address] [place] [address], [facility] GIANT PLATELETS Present Normal [facility] Comment on above: Order Comment: << On admission If not done in ED>> No: Do not add to previous draw Performed By: #### 0 0121, 37429, 70255, 40439, 62393 #### [facility] [address] [place] [address], [facility] Hematocrit (Bld) [Volume fraction] 35.4 % Low 39.0-50.0 [facility] Comment on above: Order Comment: << On admission If not done in ED>> No: Do not add to previous draw Performed By: #### 0 0121, 34700, 27413, 19335, 49380 #### [facility] [address] [place] [address], [facility] Hemoglobin (Bld) [Mass/Vol] 11.1 g/dL Low 13.0-17.0 [facility] Comment on above: Order Comment: << On admission If not done in ED>> No: Do not add to previous draw Performed By: #### 0 0121, 95060, 70240, 89102, 97394 #### [facility] [address] [facility] [place] [address], [facility] Lymphocytes (Bld) [#/Vol] 0.8 10*3/uL Low 1.2-4.0 [facility] Comment on above: Order Comment: << On admission If not done in ED>> No: Do not add to previous draw Performed By: #### 0 0121, 00891, 20840, 92841, 09605 #### [facility] [address] [facility] [place] [address], [facility] Lymphocytes/100 WBC (Bld) 6.3 % Low 20.0-45.0 [facility] Comment on above: Order Comment: << On admission If not done in ED>> No: Do not add to previous draw Performed By: #### 0 0121, 46053, 07090, 07478, 26008 #### [facility] [address] [place] [address], [facility] MCH (RBC) [Entitic mass] 28.8 pg Normal 27.0-33.0 [facility] Comment on above: Order Comment: << On admission If not done in ED>> No: Do not add to previous draw Performed By: #### 0 0121, 31694, 15041, 20262, 78964 #### [facility] [address] [place] [address], [facility] MCHC (RBC) [Mass/Vol] 31.4 g/dL Low 32.0-35.0 [facility] Comment on above: Order Comment: << On admission If not done in ED>> No: Do not add to previous draw Performed By: #### 0 0121, 83436, 90343, 57428, 30753 #### [facility] [address] [place], [place] [address] [place] [address] MCV (RBC) [Entitic vol] 91.9 fL Normal 82.0-98.0 [facility] Comment on above: Order Comment: << On admission If not done in ED>> No: Do not add to previous draw Performed By: #### 0 0121, 19804, 89179, 93104, 79469 #### [facility] [address] Monocytes (Bld) [#/Vol] 0.7 10*3/uL Normal 0.1-1.0 [facility] Comment on above: Order Comment: << On admission If not done in ED>> No: Do not add to previous draw Performed By: #### 0 0121, 95694, 96864, 56456, 46150 #### [facility] [address] MONOS 5.4 % Normal 5.0-12.0 [facility] Comment on above: Order Comment: << On admission If not done in ED>> No: Do not add to previous draw Performed By: #### 0 0121, 83851, 17403, 32226, 26441 #### [facility] [address] [place] [address], [facility] MYELOS 0.9 % High .0-.0 [facility] Comment on above: Order Comment: << On admission If not done in ED>> No: Do not add to previous draw Performed By: #### 0 0121, 71652, 86011, 21083, 37235 #### [facility] [address] [place] [address], [facility] Neutrophils/100 WBC (Bld) 85.6 % High 40.0-72.0 [place] Comment on above: Order Comment: << On admission If not done in ED>> No: Do not add to previous draw Performed By: #### 0 0121, 03780, 14118, 84618, 95057 #### [facility] [address] [place] [address], [facility] Nucleated RBC/100 WBC (Bld) [Ratio] 0 % Normal 0-0 [facility] Comment on above: Order Comment: << On admission If not done in ED>> No: Do not add to previous draw Performed By: #### 0 0121, 10497, 65479, 52562, 11898 #### [facility] [address] [place] [address], [facility] PLAT CNT 196 10*3/uL Normal 150-400 [facility] Comment on above: Order Comment: << On admission If not done in ED>> No: Do not add to previous draw Performed By: #### 0 0121, 09643, 97881, 92157, 32659 #### [facility] [address] [facility] [place] [address], [facility] RBC (Bld) [#/Vol] 3.85 10*6/uL Low 4.20-5.70 [facility] Comment on above: Order Comment: << On admission If not done in ED>> No: Do not add to previous draw Performed By: #### 0 0121, 23467, 38558, 23139, 83515 #### [facility] [address] [place] [address], [place] WBC (Bld) [#/Vol] 13.09 10*3/uL High 4.00-10.60 [place] Comment on above: Order Comment: << On admission If not done in ED>> No: Do not add to previous draw Performed By: #### 0 0121, 93023, 72181, 84825, 85305 #### [facility] [address] [place] [address], [place] MAGNESIUM BLOODon 03-25-2019 Magnesium [Mass/Vol] 2.3 mg/dL Normal 1.9-2.7 [facility] Comment on above: Order Comment: << On admission If not done in ED>> No: Do not add to previous draw Performed By: #### 0 0121, 65827, 10613, 69348, 94519 #### [facility] [address] [place] [address], [place] PHOSPHORUS BLOODon 9 Phosphate [Mass/Vol] 2.6 mg/dL Normal 2.5-5.0 [facility] Comment on above: Order Comment: << On admission If not done in ED>> No: Do not add to previous draw Performed By: #### 0 0121, 22798, 62459, 07282, 65891 #### [facility] [address] [place] [address], [place] POC GLUCOSE LABon 03-25-2019 Glucose [Mass/Vol] 103 mg/dL High 70-100 [facility]: Performed By: #### 0 0121, 57725, 20387, 31522, 31689 #### [facility] [address] [place] [address], [place] Glucose [Mass/Vol] 113 mg/dL High 70-100 [facility] Comment on above: Performed By: #### 0 0121, 10056, 98745, 10958, 82327 #### [facility] [address] [place] [address], [place] Glucose [Mass/Vol] 120 mg/dL High 70-100 [facility] Comment on above: Performed By: #### 0 0121, 60067, 20693, 39687, 68227 #### [facility] [address] Glucose [Mass/Vol] 110 mg/dL High 70-100 [facility] Comment on above: Performed By: #### 0 0121, 92326, 11408, 02622, 15269 #### [address] PORTABLE CHEST 1 VIEWon 03-01 PORTABLE CHEST 1 VIEW [facility] Department of Radiology [address] [place] [id number] ======== Patient Name: TRACIE CRAIN : 1965 Sex: M Age: Race: NA Pt. Location: [id number] Patient Status: I Ordered Date: 03/25/2019 7:00:00 AM Completed Date: 03/25/2019 07:15 AM Requesting Provider: TIMBO BLACK Attending Provider: TIMBO BLACK Report Copy To: Signs & Symptoms: Post Chest Tube Clamped History: Patient history not available Comments: Other Exam: PORTABLE CHEST 1 VIEW ======== PORTABLE CHEST 1 VIEW 03/25/2019 7:15 AM EDT SIGNS AND SYMPTOMS: Post Chest Tube Clamped TECHNOLOGIST COMMENTS: Post right side Chest Tube Clamped QUESTION FOR THE RADIOLOGIST: Other PROTOCOL: AP(PA) view was obtained. COMPARISON: March 24, 2019 FINDINGS: Trachea is midline. Cardiomediastinal silhouette is unchanged. Right apical chest tube and right midlung chest tube remain in satisfactory position and are unchanged. Bibasilar infiltrates are redemonstrated with improvement on the right with slight worsening on the left. There is silhouetting of the left hemidiaphragm. No identifiable pneumothorax. IMPRESSION: No identifiable pneumothorax. Improving right basilar infiltrate. Worsening left lower lobe/retrocardiac airspace disease. Approved by:Kareem Liao on 03/25/2019 9:08 AM EDT. I, Divya Collins, have reviewed the images and report and concur with these findings. Electronically signed by:Divya Collins. Transcribed by: [email or web address], User Resident: KAREEM LIAO Electronically Signed by: DIVYA COLLINS @ 03/25/2019 11:10 AM I personally read this/these film(s) with this resident Normal [facility] Comment on above: Order Comment: No: D o not add to previous draw BASIC METABOLIC PANELon 03-01 Calcium [Mass/Vol] 9.0 mg/dL Normal 8.6-10.3 [facility] Comment on above: Order Comment: << On admission If not done in ED>> No: Do not add to previous draw Performed By: #### 0 0121, 22001, 47864, 67141, 11092 #### [facility] [address] [place] [address], [facility] Chloride [Moles/Vol] 96 mmol/L Low 98-107 [place] Comment on above: Order Comment: << On admission If not done in ED>> No: Do not add to previous draw Performed By: #### 0 0121, 04547, 95418, 36307, 55458 #### [facility] [address] [place] [address], [place] CO2 [Moles/Vol] 30 mmol/L Normal 21-31 [facility] Comment on above: Order Comment: << On admission If not done in ED>> No: Do not add to previous draw Performed By: #### 0 0121, 26034, 37718, 10106, 48369 #### [facility] [address] [place] [address], [place] Creatinine [Mass/Vol] 0.89 mg/dL Normal 0.70-1.30 [place] Comment on above: Order Comment: << On admission If not done in ED>> No: Do not add to previous draw Performed By: #### 0 0121, 24321, 38492, 08773, 12308 #### [facility] [address] [place] [address], [facility] GFR/1.73 sq M predicted among blacks MDRD (S/P/Bld) [Vol rate/Area] mL/min/{1.73_m2} Normal >60 [facility] Comment on above: Order Comment: << On admission If not done in ED>> No: Do not add to previous draw Performed By: #### 0 0121, 47811, 96117, 92568, 40532 #### [facility] [address] [place] [address], [facility] GFR/1.73 sq M predicted among non-blacks MDRD (S/P/Bld) [Vol rate/Area] mL/min/{1.73_m2} Normal >60 [facility] Comment on above: Order Comment: << On admission If not done in ED>> No: Do not add to previous draw Performed By: #### 0 0121, 73211, 30073, 28095, 10883 #### [facility] [address] [place] [address], [facility] Glucose [Mass/Vol] 98 mg/dL Normal 70-100 [facility] Comment on above: Order Comment: << On admission If not done in ED>> No: Do not add to previous draw Performed By: #### 0 0121, 48662, 75613, 18289, 49218 #### [facility] [address] [place] [address], [facility] Potassium [Moles/Vol] 3.2 mmol/L Low 3.5-5.1 [facility] Comment on above: Order Comment: << On admission If not done in ED>> No: Do not add to previous draw Performed By: #### 0 0121, 03584, 87685, 12969, 27868 #### [facility] [address] Sodium [Moles/Vol] 135 mmol/L Low 136-145 [facility] Comment on above: Order Comment: << On admission If not done in ED>> No: Do not add to previous draw Performed By: #### 0 0121, 64211, 98536, 80903, 39039 #### [facility] [address] Urea nitrogen [Mass/Vol] 29 mg/dL High 7-25 [place] Comment on above: Order Comment: << On admission If not done in ED>> No: Do not add to previous draw Performed By: #### 0 0121, 68225, 67772, 61462, 25617 #### [facility] [address] CBC W/DIFFon 03-24-2019 ABS BASOPHILS 0.1 10*3/uL Normal 0.0-0.2 The [facility] Comment on above: Order Comment: << On admission If not done in ED>> No: Do not add to previous draw Performed By: #### 0 0121, 96735, 34239, 73517, 66460 #### [facility] [address] ABS IMM GRANS 0.1 10*3/uL Normal 0.0-0.2 [facility] Comment on above: Order Comment: << On admission If not done in ED>> No: Do not add to previous draw Performed By: #### 0 0121, 23489, 69753, 88793, 66494 #### [facility] [address] ABS NEUTROPHILS 6.9 10*3/uL Normal 1.6-7.6 [facility] Comment on above: Order Comment: << On admission If not done in ED>> No: Do not add to previous draw Performed By: #### 0 0121, 76574, 02854, 76529, 54116 #### [facility] [address] [place] [address], [facility] Basophils/100 WBC (Bld) 0.8 % Normal 0.0-1.0 [facility] Comment on above: Order Comment: << On admission If not done in ED>> No: Do not add to previous draw Performed By: #### 0 0121, 01634, 60204, 42461, 60723 #### [facility] [address] [place] [address], [facility] Eosinophils (Bld) [#/Vol] 0.3 10*3/uL Normal 0.0-0.5 [place] Comment on above: Order Comment: << On admission If not done in ED>> No: Do not add to previous draw Performed By: #### 0 0121, 85758, 17408, 65390, 45860 #### [facility] [address] [place] [address], [facility] Eosinophils/100 WBC (Bld) 2.8 % Normal 0.0-6.0 [facility] Comment on above: Order Comment: << On admission If not done in ED>> No: Do not add to previous draw Performed By: #### 0 0121, 20321, 15134, 13086, 45146 #### [facility] [address] [place] [address], [facility] Erythrocyte distribution width (RBC) [Ratio] 13.5 % Normal 11.5-15.0 [facility] Comment on above: Order Comment: << On admission If not done in ED>> No: Do not add to previous draw Performed By: #### 0 0121, 55654, 22580, 93282, 61974 #### [facility] [address] Hematocrit (Bld) [Volume fraction] 33.0 % Low 39.0-50.0 [facility] Comment on above: Order Comment: << On admission If not done in ED>> No: Do not add to previous draw Performed By: #### 0 0121, 90015, 89287, 47597, 10473 #### [facility] [address] [facility] [place] [address], [facility] Hemoglobin (Bld) [Mass/Vol] 10.4 g/dL Low 13.0-17.0 [facility] Comment on above: Order Comment: << On admission If not done in ED>> No: Do not add to previous draw Performed By: #### 0 0121, 34583, 77695, 69012, 64695 #### [facility] [address] IMMATURE GRANS 1.2 % High 0.0-1.0 [facility] Comment on above: Order Comment: << On admission If not done in ED>> No: Do not add to previous draw Performed By: #### 0 0121, 83543, 04648, 46116, 64200 #### [facility] [address] Lymphocytes (Bld) [#/Vol] 1.5 10*3/uL Normal 1.2-4.0 [facility] Comment on above: Order Comment: << On admission If not done in ED>> No: Do not add to previous draw Performed By: #### 0 0121, 44208, 10776, 77343, 01230 #### [facility] [address] [place] [address], [facility] Lymphocytes/100 WBC (Bld) 14.4 % Low 20.0-45.0 [facility] Comment on above: Order Comment: << On admission If not done in ED>> No: Do not add to previous draw Performed By: #### 0 0121, 62373, 85210, 89082, 87845 #### [facility] [address] [facility] [place] [address], [facility] MCH (RBC) [Entitic mass] 28.8 pg Normal 27.0-33.0 [facility] Comment on above: Order Comment: << On admission If not done in ED>> No: Do not add to previous draw Performed By: #### 0 0121, 97712, 53518, 89253, 74688 #### [facility] [address] MCHC (RBC) [Mass/Vol] 31.5 g/dL Low 32.0-35.0 [facility] Comment on above: Order Comment: << On admission If not done in ED>> No: Do not add to previous draw Performed By: #### 0 0121, 69618, 93800, 58994, 21480 #### [facility] [address] [facility] [place] [address], [facility] MCV (RBC) [Entitic vol] 91.4 fL Normal 82.0-98.0 [facility] Comment on above: Order Comment: << On admission If not done in ED>> No: Do not add to previous draw Performed By: #### 0 0121, 91242, 37013, 72463, 73398 #### [facility] [address] [facility] [place] [address], [facility] Monocytes (Bld) [#/Vol] 1.3 10*3/uL High 0.1-1.0 [facility] Comment on above: Order Comment: << On admission If not done in ED>> No: Do not add to previous draw Performed By: #### 0 0121, 52853, 54415, 33286, 22234 #### [facility] [address] [place] [address], [facility] MONOS 13.1 % High 5.0-12.0 [facility] Comment on above: Order Comment: << On admission If not done in ED>> No: Do not add to previous draw Performed By: #### 0 0121, 90234, 22823, 35190, 47141 #### [facility] [address] [place] [address], [place] Neutrophils/100 WBC (Bld) 67.7 % Normal 40.0-72.0 [place] Comment on above: Order Comment: << On admission If not done in ED>> No: Do not add to previous draw Performed By: #### 0 0121, 09487, 32159, 35553, 95078 #### [facility] [address] [place] [address], [facility] Nucleated RBC/100 WBC (Bld) [Ratio] 0 % Normal 0-0 [place] Comment on above: Order Comment: << On admission If not done in ED>> No: Do not add to previous draw Performed By: #### 0 0121, 41710, 28224, 83367, 82291 #### [facility] [address] [place] [address], [place] PLAT CNT 166 10*3/uL Normal 150-400 [facility] Comment on above: Order Comment: << On admission If not done in ED>> No: Do not add to previous draw Performed By: #### 0 0121, 46982, 37046, 92585, 90461 #### [facility] [address] [place] [address], [place] RBC (Bld) [#/Vol] 3.61 10*6/uL Low 4.20-5.70 The [facility] Comment on above: Order Comment: << On admission If not done in ED>> No: Do not add to previous draw Performed By: #### 0 0121, 72117, 93289, 10206, 46821 #### [facility] [address] [place] [address], [place] WBC (Bld) [#/Vol] 10.21 10*3/uL Normal 4.00-10.60 [place] Comment on above: Order Comment: << On admission If not done in ED>> No: Do not add to previous draw Performed By: #### 0 0121, 70908, 65837, 42528, 41118 #### [facility] [address] [facility] [place] [place] [address], [facility] MAGNESIUM BLOODon 03-24-2019 Magnesium [Mass/Vol] 2.4 mg/dL Normal 1.9-2.7 [facility] Comment on above: Order Comment: << On admission If not done in ED>> No: Do not add to previous draw Performed By: #### 0 0121, 21097, 34437, 36306, 23314 #### [facility] [address] [place] [address], [facility] PHOSPHORUS BLOODon 9 Phosphate [Mass/Vol] 2.9 mg/dL Normal 2.5-5.0 [facility] Comment on above: Order Comment: << On admission If not done in ED>> No: Do not add to previous draw Performed By: #### 0 0121, 96467, 64190, 59908, 67826 #### [facility] [address] [facility] [place] [place] [address], [facility] POC GLUCOSE LABon 03-24-2019 Glucose [Mass/Vol] 107 mg/dL High 70-100 [facility] Comment on above: Performed By: #### 0 0121, 44040, 16900, 30677, 61104 #### [facility] [address] [place] [address], [facility] PORTABLE CHEST 1 VIEWon 03-01 PORTABLE CHEST 1 VIEW [facility] Department of Radiology [address] [place] [id number] ======== Patient Name: TRACIE CRAIN : 1965 Sex: M Age: Race: NA Pt. Location: [id number] Patient Status: I Ordered Date: 03/24/2019 4:00:00 AM Completed Date: 03/24/2019 06:29 AM Requesting Provider: TIMBO BLACK Attending Provider: TIMBO BLACK Report Copy To: Signs & Symptoms: Post OP History: Patient history not available Comments: R/O Atelectasis Exam: PORTABLE CHEST 1 VIEW ======== PORTABLE CHEST 1 VIEW 03/24/2019 6:29 AM EDT SIGNS AND SYMPTOMS: Post OP TECHNOLOGIST COMMENTS: shortness of breath QUESTION FOR THE RADIOLOGIST: R/O Atelectasis PROTOCOL: AP(PA) view was obtained. 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 Right chest tubes are noted in mid lung field and no pneumothorax. Minor atelectasis right lung base. Focal atelectasis along the left diaphragm. Crowding of bronchovascular structures and possible small infiltrate left lung base. Enlarged. 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 IMPRESSION: Postoperative change with cardiomegaly. Status post valve replacement. No pneumothorax. Possible small bibasilar infiltrates. Progress study recommended. Electronically signed by:Scottie Fall. Transcribed by: [id number], User Resident: Electronically Signed by: SCOTTIE FALL @ 03/24/2019 10:43 AM Normal [facility] Comment on above: Order Comment: << On admission If not done in ED>> No: Do not add to previous draw POC GLUCOSE LABon 03-23-2019 Glucose [Mass/Vol] 150 mg/dL High 70-100 [facility] Comment on above: Performed By: #### 0 0121, 47073, 57006, 71648, 37013 #### [facility] [address] [place] [address], [place] Glucose [Mass/Vol] 110 mg/dL High 70-100 [facility] Comment on above: Performed By: #### 0 0121, 65942, 18383, 33011, 98725 #### [facility] [address] [place] [address], [place] Glucose [Mass/Vol] 112 mg/dL High 70-100 [facility] Comment on above: Performed By: #### 0 0121, 33480, 48992, 86871, 29888 #### [facility] [address] [place] [address], [place] Glucose [Mass/Vol] 93 mg/dL Normal 70-100 [facility] Comment on above: Performed By: #### 0 0121, 95204, 59433, 60775, 65160 #### [facility] [address] [place] [address], [place] ARTERIAL BLOOD GAS WITH ICAo n 03-22-2019 BASE EXCESS 4 mmol/L High -2-3 [facility] Comment on above: Performed By: #### 0 0121, 26277, 65699, 07997, 76737 #### [facility] [address] [place] [address], [place] [employer] SYSTEMS NASAL CANNULA Normal [facility] Comment on above: Performed By: #### 0 0121, 62092, 55751, 65555, 37648 #### [facility] [address] [place] [address], [place] HCO3 (Bld) [Moles/Vol] 27 mmol/L Normal 21-28 [facility] Comment on above: Performed By: #### 0 0121, 62050, 68581, 21518, 47038 #### [facility] [address] [place] [address], [place] IONIZED CALCIUM 1.14 mmol/L Normal 1.13-1.32 [facility] Comment on above: Performed By: #### 0 0121, 20120, 70608, 94295, 68430 #### [facility] [address] [place] [address], [place] LPM 6.0 LPM Normal [facility] Comment on above: Performed By: #### 0 0121, 66031, 86944, 82148, 22070 #### [facility] [address] [place] [address], [place] Oxygen (Bld) [Partial pressure] 70 mm[Hg] Low 83-108 [facility] Comment on above: Performed By: #### 0 0121, 96944, 25717, 02376, 20978 #### [facility] [address] [place] [address], [place] Oxygen saturation in Blood 93.0 % Low 94.0-97.0 [place] Comment on above: Performed By: #### 0 0121, 70185, 40006, 39481, 99174 #### [facility] [address] [place] [address], [place] PCO2 35 mmHg Normal 35-45 [facility] Comment on above: Performed By: #### 0 0121, 58230, 33104, 29933, 31228 #### [facility] [address] [place] [address], [place] pH (Bld) 7.50 [pH] High 7.35-7.45 [facility] Comment on above: Result Comment: KINJAL REYNOSO NOTE: Effective 12/02/18, reference ranges for Respiratory GEM analyzers running arterial blood have been updated to reflect the electronic imaging system operator's published reference ranges. Performed By: #### 0 0121, 25196, 82137, 15769, 79544 #### [facility] [address] [place] [address], [facility] BASIC METABOLIC PANELon 06-2 Calcium [Mass/Vol] 8.9 mg/dL Normal 8.6-10.3 [facility] Comment on above: Order Comment: << On admission If not done in ED>> No: Do not add to previous draw Performed By: #### 0 0121, 93192, 50143, 31130, 89293 #### [facility] [address] [place] [address], [facility] Chloride [Moles/Vol] 101 mmol/L Normal 98-107 [facility] Comment on above: Order Comment: << On admission If not done in ED>> No: Do not add to previous draw Performed By: #### 0 0121, 30918, 68210, 34673, 23274 #### [facility] [address] [place] [address], [facility] CO2 [Moles/Vol] 28 mmol/L Normal 21-31 [facility] Comment on above: Order Comment: << On admission If not done in ED>> No: Do not add to previous draw Performed By: #### 0 0121, 06736, 77845, 52300, 95072 #### [facility] [address] [place] [address], [facility] Creatinine [Mass/Vol] 1.29 mg/dL Normal 0.70-1.30 [facility] Comment on above: Order Comment: << On admission If not done in ED>> No: Do not add to previous draw Performed By: #### 0 0121, 88152, 81251, 94541, 30598 #### [facility] [address] [place] [address], [place] GFR/1.73 sq M predicted among blacks MDRD (S/P/Bld) [Vol rate/Area] mL/min/{1.73_m2} Normal >60 [facility] Comment on above: Order Comment: << On admission If not done in ED>> No: Do not add to previous draw Performed By: #### 0 0121, 52983, 80421, 99049, 50497 #### [facility] [address] [place] [address], [place] GFR/1.73 sq M predicted among non-blacks MDRD (S/P/Bld) [Vol rate/Area] 58 ml/min/1.73sq m Abnormal >60 [facility] Comment on above: Order Comment: << On admission If not done in ED>> No: Do not add to previous draw Performed By: #### 0 0121, 33723, 74566, 96231, 74804 #### [facility] [address] [place] [address], [place] Glucose [Mass/Vol] 111 mg/dL High 70-100 [facility] Comment on above: Order Comment: << On admission If not done in ED>> No: Do not add to previous draw Performed By: #### 0 0121, 63987, 99981, 47348, 01386 #### [facility] [address] [place] [address], [place] Sodium [Moles/Vol] 139 mmol/L Normal 136-145 [facility] Comment on above: Order Comment: << On admission If not done in ED>> No: Do not add to previous draw Performed By: #### 0 0121, 74917, 59966, 71171, 98131 #### [facility] [address] [place] [address], [place] Urea nitrogen [Mass/Vol] 23 mg/dL Normal 7-25 [facility] Comment on above: Order Comment: << On admission If not done in ED>> No: Do not add to previous draw Performed By: #### 0 0121, 43856, 14718, 67910, 33028 #### [facility] [address] CBC COMPLETE BLOOD COUNTon 0 - Erythrocyte distribution width (RBC) [Ratio] 13.4 % Normal 11.5-15.0 [facility] Comment on above: Order Comment: << On admission If not done in ED>> No: Do not add to previous draw Performed By: #### 0 0121, 86633, 59191, 87983, 07647 #### [facility] [address] Hematocrit (Bld) [Volume fraction] 31.2 % Low 39.0-50.0 [facility] Comment on above: Order Comment: << On admission If not done in ED>> No: Do not add to previous draw Performed By: #### 0 0121, 94524, 30006, 07761, 10181 #### [facility] [address] Hemoglobin (Bld) [Mass/Vol] 10.3 g/dL Low 13.0-17.0 [facility] Comment on above: Order Comment: << On admission If not done in ED>> No: Do not add to previous draw Performed By: #### 0 0121, 91292, 27963, 49153, 72412 #### [facility] [address] MCH (RBC) [Entitic mass] 28.9 pg Normal 27.0-33.0 [facility] Comment on above: Order Comment: << On admission If not done in ED>> No: Do not add to previous draw Performed By: #### 0 0121, 78560, 34771, 95264, 76649 #### [facility] [address] MCHC (RBC) [Mass/Vol] 33.0 g/dL Normal 32.0-35.0 [facility] Comment on above: Order Comment: << On admission If not done in ED>> No: Do not add to previous draw Performed By: #### 0 0121, 01084, 53601, 18085, 35149 #### [facility] [address] [place] [address], [facility] MCV (RBC) [Entitic vol] 87.4 fL Normal 82.0-98.0 [place] Comment on above: Order Comment: << On admission If not done in ED>> No: Do not add to previous draw Performed By: #### 0 0121, 01115, 08919, 89217, 96825 #### [facility] [address] [place] [address], [facility] Nucleated RBC/100 WBC (Bld) [Ratio] 0 % Normal 0-0 [facility] Comment on above: Order Comment: << On admission If not done in ED>> No: Do not add to previous draw Performed By: #### 0 0121, 40077, 25838, 11918, 31326 #### [facility] [address] [facility] [place] [address], [facility] PLAT CNT 88 10*3/uL Low 150-400 [facility] Comment on above: Order Comment: << On admission If not done in ED>> No: Do not add to previous draw Performed By: #### 0 0121, 08744, 70100, 45141, 77171 #### [facility] [address] [place] [address], [facility] RBC (Bld) [#/Vol] 3.57 10*6/uL Low 4.20-5.70 [facility] Comment on above: Order Comment: << On admission If not done in ED>> No: Do not add to previous draw Performed By: #### 0 0121, 22846, 55791, 84054, 96497 #### [facility] [address] [place] [address], [place] WBC (Bld) [#/Vol] 13.95 10*3/uL High 4.00-10.60 [facility] Comment on above: Order Comment: << On admission If not done in ED>> No: Do not add to previous draw Performed By: #### 0 0121, 87964, 97165, 52445, 24664 #### [facility] [address] [place] [address], [place] COOXIMETRYon 03-22-2019 COHB 2 % Normal [facility] Comment on above: Performed By: #### 0 0121, 92756, 38753, 05372, 42696 #### [facility] [address] [place] [address], [place] METHB 1 % Normal [facility] Comment on above: Performed By: #### 0 0121, 73342, 04322, 14956, 82041 #### [facility] [address] [place] [address], [place] Oxygen saturation in Blood 56.5 % Low 65.0-75.0 [facility] Comment on above: Performed By: #### 0 0121, 03969, 42865, 01455, 30348 #### [facility] [address] [place] [address], [place] THB 9.9 g/dL Normal [facility] Comment on above: Performed By: #### 0 0121, 71292, 16598, 63280, 67505 #### [facility] [address] [place] [address], [place] MAGNESIUM BLOODon 03-22-2019 Magnesium [Mass/Vol] 2.0 mg/dL Normal 1.9-2.7 [facility] Comment on above: Order Comment: << On admission If not done in ED>> No: Do not add to previous draw Performed By: #### 0 0121, 62708, 95666, 64008, 84272 #### [facility] [address] [place] [address], [place] Magnesium [Mass/Vol] 1.9 mg/dL Normal 1.9-2.7 [facility] Comment on above: Order Comment: << On admission If not done in ED>> No: Do not add to previous draw Performed By: #### 0 0121, 82922, 12005, 98072, 45592 #### [facility] [address] [place] [address], [place] PHOSPHORUS BLOODon 9 Phosphate [Mass/Vol] 3.6 mg/dL Normal 2.5-5.0 [facility] Comment on above: Order Comment: << On admission If not done in ED>> No: Do not add to previous draw Performed By: #### 0 0121, 77515, 28273, 92884, 65361 #### [facility] [address] [place] [address], [place] POC GLUCOSE LABon 03-22-2019 Glucose [Mass/Vol] 111 mg/dL High 70-100 [facility] Comment on above: Performed By: #### 0 0121, 29224, 28018, 20867, 47256 #### [facility] [address] [place] [address], [place] Glucose [Mass/Vol] 108 mg/dL High 70-100 [facility] Comment on above: Performed By: #### 0 0121, 48707, 32360, 80520, 52026 #### [facility] [address] [place] [address], [place] Glucose [Mass/Vol] 109 mg/dL High 70-100 [facility] Comment on above: Performed By: #### 0 0121, 53137, 81647, 82054, 75064 #### [facility] [address] [place] [address], [place] Glucose [Mass/Vol] 99 mg/dL Normal 70-100 [facility] Comment on above: Performed By: #### 0 0121, 77102, 58048, 52715, 72501 #### [facility] [address] [facility]. [place], [place] [address] [place] [address] Glucose [Mass/Vol] 91 mg/dL Normal 70-100 [facility] Comment on above: Performed By: #### 0 0121, 02724, 97896, 84352, 51254 #### [facility] [address] [facility] [place] [place] [address], [facility] PORTABLE CHEST 1 VIEWon 03-01 PORTABLE CHEST 1 VIEW [facility] Department of Radiology [address] [place] [id number] ======== Patient Name: TRACIE CRAIN : 1965 Sex: M Age: Race: NA Pt. Location: [id number] Patient Status: I Ordered Date: 03/22/2019 5:00:00 AM Completed Date: 03/22/2019 07:25 AM Requesting Provider: TIMBO BLACK Attending Provider: TIMBO BLACK Report Copy To: Signs & Symptoms: Post Extubation History: Patient history not available Comments: R/O Atelectasis Exam: PORTABLE CHEST 1 VIEW ======== PORTABLE CHEST 1 VIEW 03/22/2019 7:25 AM EDT SIGNS AND SYMPTOMS: Post Extubation TECHNOLOGIST COMMENTS: short of breath, chest tube QUESTION FOR THE RADIOLOGIST: R/O Atelectasis PROTOCOL: AP(PA) view was obtained. COMPARISON: 03/21/2019. FINDINGS: Interval removal of endotracheal and enteric tubes. Right-sided Jol[place]-Sher catheter is again seen with tip overlying the main pulmonary trunk, unchanged. Redemonstration of 2 chest tubes on the right side, unchanged. Trachea is midline. Cardiomediastinal silhouette unchanged. Bibasilar airspace opacities are again seen, without significant changes compared to prior study. Small left pleural effusion. No pneumothorax. No acute osseous abnormalities. IMPRESSION: 1. Redemonstration of bibasilar airspace opacities, without significant changes compared to prior study. 2. Small left pleural effusion, unchanged. 3. Right-sided Jol[place]-Sher catheter with tip projecting over the pulmonary trunk, unchanged. 4. Redemonstration of 2 chest tubes on the right, unchanged. Approved by:Cynthia Finley on 03/22/2019 8:06 AM EDT. I, Yenni Osuna, have reviewed the images and report and concur with these findings. Electronically signed by:Yenni Osuna. Transcribed by: [email or web address], User Resident: CYNTHIA FINLEY Electronically Signed by: YENNI OSUNA @ 03/22/2019 01:07 PM I personally read this/these film(s) with this resident Normal [facility] Comment on above: Order Comment: << On admission If not done in ED>> No: Do not add to previous draw POTASSIUM BLOODon 03-22-2019 Potassium [Moles/Vol] 3.1 mmol/L Low 3.5-5.1 [facility] Comment on above: Order Comment: << On admission If not done in ED>> No: Do not add to previous draw Performed By: #### 0 0121, 09631, 22347, 03526, 35695 #### [facility] [address] [facility]. [address] PROTHROMBIN TIMEon 9 INR Coag (PPP) [Relative time] 1.37 {INR} High 0.91-1.16 [facility] Comment on above: Order Comment: << On admission If not done in ED>> No: Do not add to previous draw Result Comment: ACCC P RECOMMENDED INR FOR WARFARIN THERAPY ------- ------- CONDITION INR PROPHYLAXIS OF VENOUS THROMBOSIS 2-3 (HIGH-RISK SURGERY) TREATMENT OF VENOUS THROMBOSIS 2-3 TREATMENT OF PULMONARY EMBOLISM 2-3 PREVENTION OF SYSTEMIC EMBOLISM: 2-3 ACUTE MYOCARDIAL INFARCTION TISSUE HEART VALVES VALVULAR HEART DISEASE ATRIAL FIBRILLATION RECURRENT SYSTEMIC EMBOLISM MECHANICAL HEART VALVE 2.5-3.5 FROM: ORAL ANTICOAGULANTS. MECHANISM OF ACTION, CLINICAL EFFECTIVENESS, AND OPTIMAL THERAPEUTIC RANGE. CHEST 1995;108:231S-246S. Performed By: #### 0 0121, 75530, 92809, 85054, 96359 #### [facility] [address] [facility]. [address] PT Coag (PPP) [Time] 16.9 s High 12.3-14.8 [place] Comment on above: Order Comment: << On admission If not done in ED>> No: Do not add to previous draw Result Comment: ALL RESULTS MUST BE INTERPRETED WITH RESPECT TO BLOOD DRAWING ARTIFACT OR DILUTION ERROR OF ANTICOAGULANT AT THE TIME OF SAMPLING. Performed By: #### 0 0121, 38967, 32799, 59432, 98725 #### [facility] [address] [facility]. [address] ARTERIAL BLOOD GAS W/COOXon 03-21-2019 BASE EXCESS 1 mmol/L Normal -2-3 [facility] Comment on above: Performed By: #### 0 0121, 47649, 84125, 63967, 87045 #### [facility] [address] [facility]. [address] COHB 1.4 % Normal 0.0-1.5 [place] Comment on above: Performed By: #### 0 0121, 13829, 04810, 49183, 28510 #### [facility] [address] [place] [address], [place] FIO2 40 % Normal [facility] Comment on above: Performed By: #### 0 0121, 55348, 51667, 16476, 67042 #### [facility] [address] [place] [address], [place] HCO3 (Bld) [Moles/Vol] 24 mmol/L Normal 21-28 [facility] Comment on above: Performed By: #### 0 0121, 02620, 47862, 10030, 62271 #### [facility] [address] [place] [address], [place] METHB 1.1 % Normal 0.0-1.5 [facility] Comment on above: Performed By: #### 0 0121, 23143, 12411, 59633, 01163 #### [facility] [address] [place] [address], [place] MIN VOLUME 13.1 Normal [facility] Comment on above: Performed By: #### 0 0121, 60602, 37516, 00168, 46861 #### [facility] [address] [place] [address], [place] MODALITY Positive Normal [facility] Comment on above: Performed By: #### 0 0121, 98020, 53042, 72199, 76230 #### [facility] [address] [place] [address], [place] Oxygen (Bld) [Partial pressure] 86 mm[Hg] Normal 83-108 [facility] Comment on above: Performed By: #### 0 0121, 22442, 61130, 41350, 04173 #### [facility] [address] [place] [address], [place] Oxygen saturation in Blood 94.8 % Normal 94.0-97.0 [facility] Comment on above: Performed By: #### 0 0121, 92968, 76192, 53171, 63416 #### [facility] [address] [place] [address], [facility] PCO2 32 mmHg Low 35-45 [facility] Comment on above: Performed By: #### 0 0121, 90304, 76399, 25148, 44014 #### [facility] [address] [place] [address], [facility] PEEP 8.0 CMH20 Normal [facility] Comment on above: Performed By: #### 0 0121, 93202, 85808, 20652, 04207 #### [facility] [address] [place] [address], [facility] pH (Bld) 7.49 [pH] High 7.35-7.45 [facility] Comment on above: Result Comment: KINJAL REYNOSO NOTE: Effective 12/02/18, reference ranges for Respiratory GEM analyzers running arterial blood have been updated to reflect the electronic imaging system operator's published reference ranges. Performed By: #### 0 0121, 11308, 00110, 62516, 93516 #### [facility] [address] [place] [address], [facility] PRESSURE SUPPORT 5 Normal [facility] Comment on above: Performed By: #### 0 0121, 33681, 65424, 45430, 90062 #### [facility] [address] [place] [address], [facility] THB 10.3 g/dL Low 12.0-16.3 [facility] Comment on above: Performed By: #### 0 0121, 77432, 77647, 14051, 99221 #### [facility] [address] [place] [address], [facility] ARTERIAL BLOOD GAS WITH ICAo n 03-21-2019 BASE EXCESS 4 mmol/L High -2-3 [facility] Comment on above: Performed By: #### 0 0121, 38322, 99757, 04163, 97574 #### [facility] [address] [place] [address], [facility] DELIVERY SYSTEM[employer] [place] Normal [facility] Comment on above: Performed By: #### 0 0121, 70601, 59391, 61180, 43016 #### [facility] [address] [place] [address], [place] HCO3 (Bld) [Moles/Vol] 27 mmol/L Normal 21-28 [place] Comment on above: Performed By: #### 0 0121, 03289, 65703, 22796, 10337 #### [facility] [address] [place] [address], [facility] IONIZED CALCIUM 1.17 mmol/L Normal 1.13-1.32 [facility] Comment on above: Performed By: #### 0 0121, 89896, 89688, 50740, 14696 #### [facility] [address] [place] [address], [place] LPM 6.0 LPM Normal [place] Comment on above: Performed By: #### 0 0121, 09729, 83772, 65177, 14040 #### [facility] [address] [place] [address], [place] Oxygen (Bld) [Partial pressure] 67 mm[Hg] Low 83-108 [facility] Comment on above: Performed By: #### 0 0121, 57133, 70750, 80020, 11881 #### [facility] [address] [place] [address], [place] Oxygen saturation in Blood 92.7 % Low 94.0-97.0 [place] Comment on above: Performed By: #### 0 0121, 48663, 36872, 20098, 30840 #### [facility] [address] [place] [address], [facility] PCO2 36 mmHg Normal 35-45 [facility] Comment on above: Performed By: #### 0 0121, 71533, 47799, 39810, 61352 #### [facility] [address] [place] [address], [place] pH (Bld) 7.49 [pH] High 7.35-7.45 [facility] Comment on above: Result Comment: KINJAL REYNOSO NOTE: Effective 12/02/18, reference ranges for Respiratory GEM analyzers running arterial blood have been updated to reflect the electronic imaging system operator's published reference ranges. Performed By: #### 0 0121, 64227, 90477, 64878, 64018 #### [facility] [address] [place] [address], [facility] BASE EXCESS 1 mmol/L Normal -2-3 [facility] Comment on above: Performed By: #### 0 0121, 26703, 85035, 29970, 15009 #### [facility] [address] [place] [address], [place] DELIVERY SYSTEMS VENTILATOR Normal [facility] Comment on above: Performed By: #### 0 0121, 31530, 32371, 87670, 02887 #### [facility] [address] [place] [address], [place] FIO2 40 % Normal [facility] Comment on above: Performed By: #### 0 0121, 20272, 44210, 78317, 31092 #### [facility] [address] [place] [address], [place] HCO3 (Bld) [Moles/Vol] 24 mmol/L Normal 21-28 [facility] Comment on above: Performed By: #### 0 0121, 97537, 20844, 00632, 71624 #### [facility] [address] [place] [address], [place] IONIZED CALCIUM 1.07 mmol/L Low 1.13-1.32 [facility] [place] [facility] Comment on above: Performed By: #### 0 0121, 78319, 51727, 73176, 12577 #### [facility] [address] [place] [address], [place] MIN VOLUME 15.6 Normal [place] Comment on above: Performed By: #### 0 0121, 77174, 20057, 08122, 52078 #### [facility] [address] [place] [address], [place] MODALITY Positive Normal [place] Comment on above: Performed By: #### 0 0121, 91737, 35021, 56385, 33786 #### [facility] [address] [place] [address], [place] Oxygen (Bld) [Partial pressure] 89 mm[Hg] Normal 83-108 [facility] Comment on above: Performed By: #### 0 0121, 89978, 37973, 73543, 84739 #### [facility] [address] [place] [address], [place] Oxygen saturation in Blood 94.7 % Normal 94.0-97.0 [place] Comment on above: Performed By: #### 0 0121, 31035, 01843, 28760, 52848 #### [facility] [address] [place] [address], [place] PCO2 30 mmHg Low 35-45 [facility] Comment on above: Performed By: #### 0 0121, 00015, 85635, 33803, 69231 #### [facility] [address] [place] [address], [place] PEEP 8.0 CMH20 Normal [place] Comment on above: Performed By: #### 0 0121, 59699, 03963, 91190, 37901 #### [facility] [address] [place] [address], [place] pH (Bld) 7.51 [pH] High 7.35-7.45 [facility] Comment on above: Result Comment: KINJAL REYNOSO NOTE: Effective 12/02/18, reference ranges for Respiratory GEM analyzers running arterial blood have been updated to reflect the electronic imaging system operator's published reference ranges. Performed By: #### 0 0121, 34320, 81137, 66278, 16798 #### [facility] [address] [place] [address], [facility] PRESSURE SUPPORT 10 Normal [facility] Comment on above: Performed By: #### 0 0121, 58473, 04236, 40785, 49472 #### [facility] [address] [place] [address], [facility] BASE EXCESS 0 mmol/L Normal -2-3 [facility] Comment on above: Performed By: #### 0 0121, 47742, 96219, 86158, 14660 #### [facility] [address] [place] [address], [facility] DELIVERY SYSTEMS MV Normal [facility] Comment on above: Performed By: #### 0 0121, 13577, 78515, 03539, 55627 #### [facility] [address] [place] [address], [facility] FIO2 40 % Normal [place] Comment on above: Performed By: #### 0 0121, 27919, 99701, 85957, 94288 #### [facility] [address] [place] [address], [place] HCO3 (Bld) [Moles/Vol] 23 mmol/L Normal 21-28 [facility] Comment on above: Performed By: #### 0 0121, 65715, 49229, 29986, 59001 #### [facility] [address] [place] [address], [place] IONIZED CALCIUM 1.07 mmol/L Low 1.13-1.32 [facility] Comment on above: Performed By: #### 0 0121, 49777, 66215, 65323, 16665 #### [facility] [address] [place] [address], [place] MIN VOLUME 17.0 Normal [place] Comment on above: Performed By: #### 0 0121, 82734, 95991, 84151, 43672 #### [facility] [address] [place] [address], [place] MODALITY AC Normal [place] Comment on above: Performed By: #### 0 0121, 27777, 67290, 78039, 77029 #### [facility] [address] [place] [address], [place] Oxygen (Bld) [Partial pressure] 94 mm[Hg] Normal 83-108 [facility] Comment on above: Performed By: #### 0 0121, 36396, 12923, 87228, 48480 #### [facility] [address] [place] [address], [place] Oxygen saturation in Blood 95.1 % Normal 94.0-97.0 [place] Comment on above: Performed By: #### 0 0121, 55930, 15185, 49548, 71660 #### [facility] [address] [place] [address], [place] PCO2 30 mmHg Low 35-45 [facility] Comment on above: Performed By: #### 0 0121, 31868, 79497, 01788, 49060 #### [facility] [address] [place] [address], [place] PEEP 8.0 CMH20 Normal [place] Comment on above: Performed By: #### 0 0121, 37952, 45041, 74487, 65525 #### [facility] [address] [place] [address], [place] pH (Bld) 7.49 [pH] High 7.35-7.45 [facility] [place] [facility] Comment on above: Result Comment: KINJAL REYNOSO NOTE: Effective 12/02/18, reference ranges for Respiratory GEM analyzers running arterial blood have been updated to reflect the electronic imaging system operator's published reference ranges. Performed By: #### 0 0121, 75947, 80596, 13337, 27140 #### [facility] [address] [place] [address], [facility] TIDAL VOLUME (VT) CC 700 cc Normal [place] Comment on above: Performed By: #### 0 0121, 76892, 54393, 47128, 47613 #### [facility] [address] [place] [address], [facility] BASE EXCESS 0 mmol/L Normal -2-3 [facility] Comment on above: Performed By: #### 0 0121, 32792, 74683, 84527, 44226 #### [facility] [address] [place] [address], [facility] [employer] MV Normal [facility] Comment on above: Performed By: #### 0 0121, 46313, 02360, 34065, 88852 #### [facility] [address] [place] [address], [facility] FIO2 50 % Normal [facility] Comment on above: Performed By: #### 0 0121, 17802, 92569, 07882, 37164 #### [facility] [address] [place] [address], [facility] HCO3 (Bld) [Moles/Vol] 23 mmol/L Normal 21-28 [facility] Comment on above: Performed By: #### 0 0121, 41956, 66483, 07773, 21024 #### [facility] [address] [place] [address], [facility] IONIZED CALCIUM 1.14 mmol/L Normal 1.13-1.32 [facility] Comment on above: Performed By: #### 0 0121, 18034, 84619, 42608, 17341 #### [facility] [address] [place] [address], [place] MIN VOLUME 13.3 Normal [place] Comment on above: Performed By: #### 0 0121, 80700, 45698, 52868, 04988 #### [facility] [address] [place] [address], [place] MODALITY AC Normal [facility] Comment on above: Performed By: #### 0 0121, 33244, 01418, 35464, 66728 #### [facility] [address] [place] [address], [place] Oxygen (Bld) [Partial pressure] 71 mm[Hg] Low 83-108 [facility] Comment on above: Performed By: #### 0 0121, 64759, 90716, 64356, 50816 #### [facility] [address] [place] [address], [place] Oxygen saturation in Blood 92.6 % Low 94.0-97.0 [facility] Comment on above: Performed By: #### 0 0121, 76252, 79536, 34016, 81945 #### [facility] [address] [place] [address], [place] PCO2 31 mmHg Low 35-45 [facility] Comment on above: Performed By: #### 0 0121, 23516, 51468, 89200, 55131 #### [facility] [address] [place] [address], [place] PEEP 8.0 CMH20 Normal [facility] Comment on above: Performed By: #### 0 0121, 53926, 99477, 06553, 73162 #### [facility] [address] [place] [address], [place] PF RATIO 142 mmHg Normal [facility] Comment on above: Performed By: #### 0 0121, 24341, 34059, 31691, 44022 #### [facility] [address] [place] [address], [facility] pH (Bld) 7.47 [pH] High 7.35-7.45 [place] Comment on above: Result Comment: KINJAL REYNOSO NOTE: Effective 12/02/18, reference ranges for Respiratory GEM analyzers running arterial blood have been updated to reflect the electronic imaging system operator's published reference ranges. Performed By: #### 0 0121, 37161, 01353, 12446, 53553 #### [facility] [address] [place] [address], [facility] TIDAL VOLUME (VT) CC 700 cc Normal [place] Comment on above: Performed By: #### 0 0121, 20421, 06955, 52179, 14870 #### [facility] [address] [place] [address], [facility] BASIC METABOLIC PANELon 06-2 Calcium [Mass/Vol] 8.6 mg/dL Normal 8.6-10.3 [facility] Comment on above: Order Comment: << On admission If not done in ED>> No: Do not add to previous draw Performed By: #### 0 0121, 66482, 61693, 56745, 45040 #### [facility] [address] [place] [address], [facility] Chloride [Moles/Vol] 104 mmol/L Normal 98-107 [facility] Comment on above: Order Comment: << On admission If not done in ED>> No: Do not add to previous draw Performed By: #### 0 0121, 70440, 88189, 01460, 92233 #### [facility] [address] [place] [address], [facility] CO2 [Moles/Vol] 26 mmol/L Normal 21-31 [facility] Comment on above: Order Comment: << On admission If not done in ED>> No: Do not add to previous draw Performed By: #### 0 0121, 04527, 63989, 15107, 40899 #### [facility] [address] [place] [address], [place] Creatinine [Mass/Vol] 1.48 mg/dL High 0.70-1.30 [place] Comment on above: Order Comment: << On admission If not done in ED>> No: Do not add to previous draw Performed By: #### 0 0121, 73215, 31264, 28926, 25972 #### [facility] [address] [place] [address], [facility] GFR/1.73 sq M predicted among blacks MDRD (S/P/Bld) [Vol rate/Area] 60 ml/min/1.73sq m Abnormal >60 [facility] Comment on above: Order Comment: << On admission If not done in ED>> No: Do not add to previous draw Performed By: #### 0 0121, 62694, 21157, 60388, 86296 #### [facility] [address] [place] [address], [facility] GFR/1.73 sq M predicted among non-blacks MDRD (S/P/Bld) [Vol rate/Area] 50 ml/min/1.73sq m Abnormal >60 [facility] Comment on above: Order Comment: << On admission If not done in ED>> No: Do not add to previous draw Performed By: #### 0 0121, 22646, 39517, 11866, 39053 #### [facility] [address] [place] [address], [place] Glucose [Mass/Vol] 115 mg/dL High 70-100 [facility] Comment on above: Order Comment: << On admission If not done in ED>> No: Do not add to previous draw Performed By: #### 0 0121, 70472, 72281, 15264, 38693 #### [facility] [address] [place] [address], [facility] Potassium [Moles/Vol] 3.4 mmol/L Low 3.5-5.1 [facility] Comment on above: Order Comment: << On admission If not done in ED>> No: Do not add to previous draw Performed By: #### 0 0121, 46131, 07015, 42904, 71955 #### [facility] [address] [place] [address], [place] Sodium [Moles/Vol] 138 mmol/L Normal 136-145 [facility] Comment on above: Order Comment: << On admission If not done in ED>> No: Do not add to previous draw Performed By: #### 0 0121, 37054, 98875, 16711, 67463 #### [facility] [address] [place] [address], [facility] Urea nitrogen [Mass/Vol] 23 mg/dL Normal 7-25 [facility] Comment on above: Order Comment: << On admission If not done in ED>> No: Do not add to previous draw Performed By: #### 0 0121, 64083, 63958, 31683, 35829 #### [facility] [address] [place] [address], [place] Calcium [Mass/Vol] 8.1 mg/dL Low 8.6-10.3 [facility] Comment on above: Order Comment: << On admission If not done in ED>> No: Do not add to previous draw Performed By: #### 0 0121, 83137, 73231, 12606, 57928 #### [facility] [address] [place] [address], [place] Chloride [Moles/Vol] 105 mmol/L Normal 98-107 [facility] Comment on above: Order Comment: << On admission If not done in ED>> No: Do not add to previous draw Performed By: #### 0 0121, 60418, 13124, 95650, 31484 #### [facility] [address] [place] [address], [place] CO2 [Moles/Vol] 26 mmol/L Normal 21-31 [facility] Comment on above: Order Comment: << On admission If not done in ED>> No: Do not add to previous draw Performed By: #### 0 0121, 38578, 47836, 52097, 84895 #### [facility] [address] [place] [address], [place] Creatinine [Mass/Vol] 1.37 mg/dL High 0.70-1.30 [place] Comment on above: Order Comment: << On admission If not done in ED>> No: Do not add to previous draw Performed By: #### 0 0121, 69380, 06235, 34661, 33197 #### [facility] [address] [place] [address], [place] GFR/1.73 sq M predicted among blacks MDRD (S/P/Bld) [Vol rate/Area] mL/min/{1.73_m2} Normal >60 [place] Comment on above: Order Comment: << On admission If not done in ED>> No: Do not add to previous draw Performed By: #### 0 0121, 17951, 35987, 21977, 40438 #### [facility] [address] [place] [address], [place] GFR/1.73 sq M predicted among non-blacks MDRD (S/P/Bld) [Vol rate/Area] 54 ml/min/1.73sq m Abnormal >60 [facility] Comment on above: Order Comment: << On admission If not done in ED>> No: Do not add to previous draw Performed By: #### 0 0121, 46565, 25914, 89898, 37112 #### [facility] [address] [place] [address], [place] Glucose [Mass/Vol] 113 mg/dL High 70-100 [facility] Comment on above: Order Comment: << On admission If not done in ED>> No: Do not add to previous draw Performed By: #### 0 0121, 35404, 66894, 12599, 85165 #### [facility] [address] [place] [address], [place] Potassium [Moles/Vol] 3.3 mmol/L Low 3.5-5.1 [facility] Comment on above: Order Comment: << On admission If not done in ED>> No: Do not add to previous draw Performed By: #### 0 0121, 62672, 93877, 27662, 72858 #### [facility] [address] [place] [address], [place] Sodium [Moles/Vol] 138 mmol/L Normal 136-145 [facility] Comment on above: Order Comment: << On admission If not done in ED>> No: Do not add to previous draw Performed By: #### 0 0121, 83597, 00287, 93567, 92408 #### [facility] [address] [place] [address], [place] Urea nitrogen [Mass/Vol] 19 mg/dL Normal 7-25 [facility] Comment on above: Order Comment: << On admission If not done in ED>> No: Do not add to previous draw Performed By: #### 0 0121, 04361, 44104, 90200, 86215 #### [facility] [address] [place] [address], [place] Calcium [Mass/Vol] 7.4 mg/dL Low 8.6-10.3 [facility] Comment on above: Order Comment: << On admission If not done in ED>> No: Do not add to previous draw Performed By: #### 0 0121, 78480, 22843, 81675, 29147 #### [facility] [address] [place] [address], [place] Chloride [Moles/Vol] 109 mmol/L High 98-107 [place] Comment on above: Order Comment: << On admission If not done in ED>> No: Do not add to previous draw Performed By: #### 0 0121, 56983, 85355, 84151, 66204 #### [facility] [address] [place] [address], [facility] CO2 [Moles/Vol] 21 mmol/L Normal 21-31 [facility] Comment on above: Order Comment: << On admission If not done in ED>> No: Do not add to previous draw Performed By: #### 0 0121, 28177, 79320, 39512, 60937 #### [facility] [address] [place] [address], [facility] Creatinine [Mass/Vol] 1.22 mg/dL Normal 0.70-1.30 [place] Comment on above: Order Comment: << On admission If not done in ED>> No: Do not add to previous draw Performed By: #### 0 0121, 99245, 70291, 23355, 61230 #### [facility] [address] [place] [address], [facility] GFR/1.73 sq M predicted among blacks MDRD (S/P/Bld) [Vol rate/Area] mL/min/{1.73_m2} Normal >60 [place] Comment on above: Order Comment: << On admission If not done in ED>> No: Do not add to previous draw Performed By: #### 0 0121, 63836, 94432, 76353, 90288 #### [facility] [address] [place] [address], [facility] GFR/1.73 sq M predicted among non-blacks MDRD (S/P/Bld) [Vol rate/Area] mL/min/{1.73_m2} Normal >60 [facility] Comment on above: Order Comment: << On admission If not done in ED>> No: Do not add to previous draw Performed By: #### 0 0121, 21455, 52194, 15058, 14899 #### [facility] [address] [place] [address], [facility] Glucose [Mass/Vol] 129 mg/dL High 70-100 [facility] Comment on above: Order Comment: << On admission If not done in ED>> No: Do not add to previous draw Performed By: #### 0 0121, 11695, 90829, 13331, 33968 #### [facility] [address] [place] [address], [facility] Potassium [Moles/Vol] 3.1 mmol/L Low 3.5-5.1 [facility] Comment on above: Order Comment: << On admission If not done in ED>> No: Do not add to previous draw Performed By: #### 0 0121, 68824, 26670, 58262, 48844 #### [facility] [address] [place] [address], [facility] Sodium [Moles/Vol] 139 mmol/L Normal 136-145 [facility] Comment on above: Order Comment: << On admission If not done in ED>> No: Do not add to previous draw Performed By: #### 0 0121, 58762, 93543, 11771, 02193 #### [facility] [address] [place] [address], [facility] Urea nitrogen [Mass/Vol] 17 mg/dL Normal 7-25 [facility] Comment on above: Order Comment: << On admission If not done in ED>> No: Do not add to previous draw Performed By: #### 0 0121, 57392, 99456, 66819, 59442 #### [facility] [address] [place] [address], [facility] CBC COMPLETE BLOOD COUNTon 0 - Erythrocyte distribution width (RBC) [Ratio] 13.5 % Normal 11.5-15.0 [facility] Comment on above: Order Comment: << On admission If not done in ED>> No: Do not add to previous draw Performed By: #### 0 0121, 07276, 04516, 16724, 19967 #### [facility] [address] [place] [address], [facility] Hematocrit (Bld) [Volume fraction] 33.7 % Low 39.0-50.0 [facility] Comment on above: Order Comment: << On admission If not done in ED>> No: Do not add to previous draw Performed By: #### 0 0121, 14426, 73002, 39922, 11104 #### [facility] [address] [place] [address], [facility] Hemoglobin (Bld) [Mass/Vol] 10.9 g/dL Low 13.0-17.0 [facility] Comment on above: Order Comment: << On admission If not done in ED>> No: Do not add to previous draw Performed By: #### 0 0121, 10900, 39100, 52407, 49963 #### [facility] [address] [place] [address], [facility] MCH (RBC) [Entitic mass] 29.3 pg Normal 27.0-33.0 [facility] Comment on above: Order Comment: << On admission If not done in ED>> No: Do not add to previous draw Performed By: #### 0 0121, 01103, 32258, 16694, 12881 #### [facility] [address] [place] [address], [place] MCHC (RBC) [Mass/Vol] 32.3 g/dL Normal 32.0-35.0 [facility] Comment on above: Order Comment: << On admission If not done in ED>> No: Do not add to previous draw Performed By: #### 0 0121, 76407, 71234, 02290, 89773 #### [facility] [address] [place] [address], [facility] MCV (RBC) [Entitic vol] 90.6 fL Normal 82.0-98.0 [place] Comment on above: Order Comment: << On admission If not done in ED>> No: Do not add to previous draw Performed By: #### 0 0121, 25818, 95011, 35908, 97607 #### [facility] [address] [place] [address], [facility] Nucleated RBC/100 WBC (Bld) [Ratio] 0 % Normal 0-0 [facility] Comment on above: Order Comment: << On admission If not done in ED>> No: Do not add to previous draw Performed By: #### 0 0121, 39889, 22843, 29828, 81337 #### [facility] [address] [place] [address], [place] PLAT CNT 100 10*3/uL Low 150-400 [facility] Comment on above: Order Comment: << On admission If not done in ED>> No: Do not add to previous draw Performed By: #### 0 0121, 93143, 81013, 77757, 97992 #### [facility] [address] [place] [address], [facility] RBC (Bld) [#/Vol] 3.72 10*6/uL Low 4.20-5.70 [facility] Comment on above: Order Comment: << On admission If not done in ED>> No: Do not add to previous draw Performed By: #### 0 0121, 73536, 44260, 75582, 12595 #### [facility] [address] [place] [address], [place] WBC (Bld) [#/Vol] 17.24 10*3/uL High 4.00-10.60 [facility] Comment on above: Order Comment: << On admission If not done in ED>> No: Do not add to previous draw Performed By: #### 0 0121, 32708, 49872, 62165, 46389 #### [facility] [address] [facility] [place] [address] Erythrocyte distribution width (RBC) [Ratio] 13.5 % Normal 11.5-15.0 [place] Comment on above: Order Comment: << On admission If not done in ED>> No: Do not add to previous draw Performed By: #### 0 0121, 33700, 70608, 18920, 45856 #### [facility] [address] Hematocrit (Bld) [Volume fraction] 35.2 % Low 39.0-50.0 [facility] Comment on above: Order Comment: << On admission If not done in ED>> No: Do not add to previous draw Performed By: #### 0 0121, 94828, 85364, 31972, 19908 #### [facility] [address] [facility] Hemoglobin (Bld) [Mass/Vol] 11.5 g/dL Low 13.0-17.0 [facility] Comment on above: Order Comment: << On admission If not done in ED>> No: Do not add to previous draw Performed By: #### 0 0121, 06148, 72333, 46589, 93231 #### [facility] [address] IMM PLATELET FRAC 4.3 % Normal 0.8-6.3 [facility] Comment on above: Order Comment: << On admission If not done in ED>> No: Do not add to previous draw Performed By: #### 0 0121, 51592, 71713, 84837, 05143 #### [facility] [address] MCH (RBC) [Entitic mass] 29.4 pg Normal 27.0-33.0 [facility] Comment on above: Order Comment: << On admission If not done in ED>> No: Do not add to previous draw Performed By: #### 0 0121, 25228, 08498, 28786, 86079 #### [facility] [address] [place] [address], [facility] MCHC (RBC) [Mass/Vol] 32.7 g/dL Normal 32.0-35.0 [place] Comment on above: Order Comment: << On admission If not done in ED>> No: Do not add to previous draw Performed By: #### 0 0121, 38267, 42424, 08068, 53429 #### [facility] [address] [place] [address], [facility] MCV (RBC) [Entitic vol] 90.0 fL Normal 82.0-98.0 [place] Comment on above: Order Comment: << On admission If not done in ED>> No: Do not add to previous draw Performed By: #### 0 0121, 63994, 29804, 05100, 64402 #### [facility] [address] Nucleated RBC/100 WBC (Bld) [Ratio] 0 % Normal 0-0 [facility] Comment on above: Order Comment: << On admission If not done in ED>> No: Do not add to previous draw Performed By: #### 0 0121, 54625, 57138, 79342, 82344 #### [facility] [address] [place] [address], [facility] PLAT CNT 99 10*3/uL Low 150-400 [facility] Comment on above: Order Comment: << On admission If not done in ED>> No: Do not add to previous draw Performed By: #### 0 0121, 56474, 78300, 15317, 52334 #### [facility] [address] [place] [address], [facility] RBC (Bld) [#/Vol] 3.91 10*6/uL Low 4.20-5.70 [facility] Comment on above: Order Comment: << On admission If not done in ED>> No: Do not add to previous draw Performed By: #### 0 0121, 55127, 22660, 26189, 92597 #### [facility] [address] [place] [address], [facility] WBC (Bld) [#/Vol] 19.55 10*3/uL High 4.00-10.60 [facility] Comment on above: Order Comment: << On admission If not done in ED>> No: Do not add to previous draw Performed By: #### 0 0121, 34561, 88211, 53004, 39437 #### [facility] [address] [place] [address], [facility] Erythrocyte distribution width (RBC) [Ratio] 13.5 % Normal 11.5-15.0 [facility] Comment on above: Order Comment: << On admission If not done in ED>> No: Do not add to previous draw Performed By: #### 0 0121, 00250, 20302, 49152, 06316 #### [facility] [address] [place] [address], [facility] Hematocrit (Bld) [Volume fraction] 38.1 % Low 39.0-50.0 [facility] Comment on above: Order Comment: << On admission If not done in ED>> No: Do not add to previous draw Performed By: #### 0 0121, 80869, 74737, 12354, 20786 #### [facility] [address] [place] [address], [facility] Hemoglobin (Bld) [Mass/Vol] 12.2 g/dL Low 13.0-17.0 [facility] Comment on above: Order Comment: << On admission If not done in ED>> No: Do not add to previous draw Performed By: #### 0 0121, 43659, 98019, 46657, 31042 #### [facility] [address] IMM PLATELET FRAC 3.8 % Normal 0.8-6.3 [facility] Comment on above: Order Comment: << On admission If not done in ED>> No: Do not add to previous draw Performed By: #### 0 0121, 90721, 32410, 72823, 48193 #### [facility] [address] [place] [address], [facility] MCH (RBC) [Entitic mass] 29.0 pg Normal 27.0-33.0 [facility] Comment on above: Order Comment: << On admission If not done in ED>> No: Do not add to previous draw Performed By: #### 0 0121, 26647, 31899, 83541, 34578 #### [facility] [address] MCHC (RBC) [Mass/Vol] 32.0 g/dL Normal 32.0-35.0 [place] Comment on above: Order Comment: << On admission If not done in ED>> No: Do not add to previous draw Performed By: #### 0 0121, 57036, 38609, 80433, 42847 #### [facility] [address] MCV (RBC) [Entitic vol] 90.7 fL Normal 82.0-98.0 [facility] Comment on above: Order Comment: << On admission If not done in ED>> No: Do not add to previous draw Performed By: #### 0 0121, 24223, 63368, 86730, 38629 #### [facility] [address] Nucleated RBC/100 WBC (Bld) [Ratio] 0 % Normal 0-0 [facility] Comment on above: Order Comment: << On admission If not done in ED>> No: Do not add to previous draw Performed By: #### 0 0121, 99262, 30302, 95845, 02967 #### [facility] [address] [place] [address], [facility] PLAT CNT 112 10*3/uL Low 150-400 [facility] Comment on above: Order Comment: << On admission If not done in ED>> No: Do not add to previous draw Performed By: #### 0 0121, 11047, 39670, 97396, 03580 #### [facility] [address] [place] [address], [facility] RBC (Bld) [#/Vol] 4.20 10*6/uL Normal 4.20-5.70 [facility] Comment on above: Order Comment: << On admission If not done in ED>> No: Do not add to previous draw Performed By: #### 0 0121, 48024, 52741, 69079, 87058 #### [facility] [address] [place] [address], [facility] WBC (Bld) [#/Vol] 21.05 10*3/uL High 4.00-10.60 [place] Comment on above: Order Comment: << On admission If not done in ED>> No: Do not add to previous draw Performed By: #### 0 0121, 67843, 29422, 18569, 30094 #### [facility] [address] [place] [address], [facility] COOXIMETRYon 03-21-2019 COHB 1 % Normal [place] Comment on above: Performed By: #### 0 0121, 41528, 43271, 09378, 77509 #### [facility] [address] [place] [address], [facility] METHB 1 % Normal [facility] Comment on above: Performed By: #### 0 0121, 92365, 80133, 65655, 30172 #### [facility] [address] [place] [address], [facility] Oxygen saturation in Blood 59.8 % Low 65.0-75.0 [facility] Comment on above: Performed By: #### 0 0121, 40186, 59705, 35640, 51142 #### [facility] [address] [place] [address], [place] THB 10.9 g/dL Normal [facility] Comment on above: Performed By: #### 0 0121, 95570, 32735, 86748, 78570 #### [facility] [address] [place] [address], [place] COHB 2 % Normal [facility] Comment on above: Performed By: #### 0 0121, 77103, 30661, 14663, 93344 #### [facility] [address] [place] [address], [place] METHB 1 % Normal [facility] Comment on above: Performed By: #### 0 0121, 69514, 95091, 81453, 81100 #### [facility] [address] [place] [address], [place] Oxygen saturation in Blood 70.2 % Normal 65.0-75.0 [facility] Comment on above: Performed By: #### 0 0121, 09550, 09186, 65750, 27082 #### [facility] [address] [place] [address], [place] THB 11.5 g/dL Normal [facility] Comment on above: Performed By: #### 0 0121, 84745, 17689, 98913, 22181 #### [facility] [address] [place] [address], [place] MAGNESIUM BLOODon 03-21-2019 Magnesium [Mass/Vol] 2.1 mg/dL Normal 1.9-2.7 [facility] Comment on above: Order Comment: << On admission If not done in ED>> No: Do not add to previous draw Performed By: #### 0 0121, 29052, 81196, 10558, 80461 #### [facility] [address] [place] [address], [place] Magnesium [Mass/Vol] 2.1 mg/dL Normal 1.9-2.7 [facility] Comment on above: Order Comment: << On admission If not done in ED>> No: Do not add to previous draw Performed By: #### 0 0121, 76392, 05076, 50315, 43703 #### [facility] [address] [place] [address], [place] Magnesium [Mass/Vol] 2.2 mg/dL Normal 1.9-2.7 [facility] Comment on above: Order Comment: << On admission If not done in ED>> No: Do not add to previous draw Performed By: #### 0 0121, 75953, 22540, 37253, 63323 #### [facility] [address] [place] [address], [place] POC GLUCOSE LABon 03-21-2019 Glucose [Mass/Vol] 107 mg/dL High 70-100 [facility] Comment on above: Performed By: #### 0 0121, 38933, 41025, 24246, 89093 #### [facility] [address] [place] [address], [place] Glucose [Mass/Vol] 103 mg/dL High 70-100 [facility] Comment on above: Performed By: #### 0 0121, 88744, 91360, 59978, 26327 #### [facility] [address] [place] [address], [place] Glucose [Mass/Vol] 112 mg/dL High 70-100 [facility] Comment on above: Performed By: #### 0 0121, 57492, 08296, 12850, 57439 #### [facility] [address] [place] [address], [place] Glucose [Mass/Vol] 127 mg/dL High 70-100 [facility] Comment on above: Performed By: #### 0 0121, 02269, 24480, 43132, 74270 #### [facility] [address] [place] [address], [place] Glucose [Mass/Vol] 95 mg/dL Normal 70-100 [facility] Comment on above: Performed By: #### 0 0121, 36081, 45995, 48502, 88031 #### [facility] [address] [place] [address], [place] Glucose [Mass/Vol] 104 mg/dL High 70-100 [facility] Comment on above: Performed By: #### 0 0121, 63631, 60745, 69106, 50790 #### [facility] [address] [place] [address], [place] Glucose [Mass/Vol] 98 mg/dL Normal 70-100 [facility] Comment on above: Performed By: #### 0 0121, 53169, 01397, 04685, 53975 #### [facility] [address] [place] [address], [place] Glucose [Mass/Vol] 113 mg/dL High 70-100 [facility] Comment on above: Performed By: #### 0 0121, 77216, 13567, 93053, 80191 #### [facility] [address] [place] [address], [place] Glucose [Mass/Vol] 130 mg/dL High 70-100 [facility] Comment on above: Performed By: #### 0 0121, 71167, 61446, 61408, 43859 #### [facility] [address] [place] [address], [place] Glucose [Mass/Vol] 130 mg/dL High 70-100 [facility] Comment on above: Performed By: #### 0 0121, 06467, 34855, 94292, 68798 #### [facility] [address] [place] [address], [place] Glucose [Mass/Vol] 129 mg/dL High 70-100 [facility] Comment on above: Performed By: #### 0 0121, 61648, 96953, 49811, 20028 #### [facility] [address] [place] [address], [place] Glucose [Mass/Vol] 108 mg/dL High 70-100 [facility] Comment on above: Performed By: #### 0 0121, 42367, 85311, 40055, 33372 #### [facility] [address] [place] [address], [place] Glucose [Mass/Vol] 101 mg/dL High 70-100 [facility] Comment on above: Performed By: #### 0 0121, 15208, 76369, 77316, 73488 #### [facility] [address] [place] [address], [facility] PORTABLE CHEST 1 VIEWon 03-01 PORTABLE CHEST 1 VIEW [facility] Department of Radiology [address] [place] [id number] ======== Patient Name: TRACIE CRAIN : 1965 Sex: M Age: Race: NA Pt. 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 COMPARISON: 03/20/2019. FINDINGS: ET tube is without significant change, in satisfactory position. Enteric tube is seen traversing below diaphragm and out of field of view, in satisfactory position. [place]-Sher catheter is again seen with tip projecting over the pulmonary trunk, without significant change. 2 right chest tubes are again seen. Trachea is midline. Cardiomediastinal silhouette is unchanged. Right basilar airspace opacity demonstrates progression as compared to prior study. Left retrocardiac opacity demonstrates slight progression. Bilateral pleural effusions redemonstrated. No pleural effusion. No acute osseous abnormalities. IMPRESSION: 1. Progression of bibasilar airspace opacities, worse on the right. 2. Bilateral pleural effusions. 3. Support lines and tubes without significant change and an satisfactory position. Approved by:Cynthia Finley on 03/21/2019 6:45 AM EDT. I, Yenni Osuna, have reviewed the images and report and concur with these findings. Electronically signed by:Yenni Osuna. Transcribed by: [email or web address], User Resident: CYNTHIA FINLEY Electronically Signed by: YENNI OSUNA @ 03/22/2019 01:07 PM I personally read this/these film(s) with this resident Normal [facility] Comment on above: Order Comment: << On admission If not done in ED>> No: Do not add to previous draw ARTERIAL BLOOD GAS WITH ICAo n 03-20-2019 BASE EXCESS -4 mmol/L Low -2-3 [facility] Comment on above: Performed By: #### 0 0121, 82612, 48342, 72415, 71583 #### [facility] [address] [place] [address], [facility] DELIVERY SYSTEMS VENTILATOR Normal [facility] Comment on above: Performed By: #### 0 0121, 29335, 84835, 07742, 28301 #### [facility] [address] [place] [address], [place] FIO2 50 % Normal [place] Comment on above: Performed By: #### 0 0121, 46579, 68538, 38501, 47654 #### [facility] [address] [place] [address], [place] HCO3 (Bld) [Moles/Vol] 19 mmol/L Low 21-28 [facility] Comment on above: Performed By: #### 0 0121, 12227, 53877, 38026, 44707 #### [facility] [address] [place] [address], [place] IONIZED CALCIUM 1.06 mmol/L Low 1.13-1.32 [facility] Comment on above: Performed By: #### 0 0121, 92439, 38597, 95843, 24750 #### [facility] [address] [place] [address], [facility] MIN VOLUME 14.2 Normal [place] Comment on above: Performed By: #### 0 0121, 44613, 38512, 74973, 08206 #### [facility] [address] [place] [address], [place] MODALITY AC-ASSIST CONTROL Normal [facility] Comment on above: Performed By: #### 0 0121, 91660, 64761, 97234, 81606 #### [facility] [address] [place] [address], [place] Oxygen (Bld) [Partial pressure] 82 mm[Hg] Low 83-108 [facility] Comment on above: Performed By: #### 0 0121, 93829, 49782, 18202, 82751 #### [facility] [address] [place] [address], [place] Oxygen saturation in Blood 94.4 % Normal 94.0-97.0 [facility] Comment on above: Performed By: #### 0 0121, 38030, 88669, 82687, 12037 #### [facility] [address] [place] [address], [place] PCO2 27 mmHg Low 35-45 [facility] Comment on above: Performed By: #### 0 0121, 01499, 12459, 40969, 15296 #### [facility] [address] [place] [address], [place] PEEP 8.0 CMH20 Normal [facility] Comment on above: Performed By: #### 0 0121, 13796, 58505, 53089, 59970 #### [facility] [address] [place] [address], [place] pH (Bld) 7.45 [pH] Normal 7.35-7.45 [facility] Comment on above: Result Comment: KINJAL REYNOSO NOTE: Effective 12/02/18, reference ranges for Respiratory GEM analyzers running arterial blood have been updated to reflect the electronic imaging system operator's published reference ranges. Performed By: #### 0 0121, 97433, 47009, 22339, 84589 #### [facility] [address] [place] [address], [place] TIDAL VOLUME (VT) CC 700 cc Normal [facility] Comment on above: Performed By: #### 0 0121, 96973, 86524, 50302, 34263 #### [facility] [address] [place] [address], [place] BASE EXCESS -2 mmol/L Normal -2-3 [facility] Comment on above: Performed By: #### 0 0121, 48359, 49920, 44696, 49963 #### [facility] [address] [place] [address], [facility] DELIVERY SYSTEM[employer] MV Normal [facility] Comment on above: Performed By: #### 0 0121, 35493, 42222, 10281, 44169 #### [facility] [address] [place] [address], [place] FIO2 100 % Normal [place] Comment on above: Performed By: #### 0 0121, 88999, 19636, 15843, 25454 #### [facility] [address] [place] [address], [facility] HCO3 (Bld) [Moles/Vol] 22 mmol/L Normal 21-28 [facility] Comment on above: Performed By: #### 0 0121, 30335, 77562, 30461, 17714 #### [facility] [address] [place] [address], [place] IONIZED CALCIUM 1.18 mmol/L Normal 1.13-1.32 [facility] Comment on above: Performed By: #### 0 0121, 19280, 15439, 35732, 28576 #### [facility] [address] [place] [address], [facility] MIN VOLUME 13.0 Normal [place] Comment on above: Performed By: #### 0 0121, 63837, 30144, 20623, 27880 #### [facility] [address] [place] [address], [place] MODALITY AC Normal [place] Comment on above: Performed By: #### 0 0121, 97357, 18100, 72782, 10753 #### [facility] [address] [place] [address], [place] Oxygen (Bld) [Partial pressure] 109 mm[Hg] Critically high 83-108 [facility] Comment on above: Performed By: #### 0 0121, 24436, 18569, 56883, 61176 #### [facility] [address] [place] [address], [place] Oxygen saturation in Blood 95.6 % Normal 94.0-97.0 [place] Comment on above: Performed By: #### 0 0121, 88854, 33127, 39145, 59398 #### [facility] [address] [place] [address], [place] PCO2 33 mmHg Low 35-45 [facility] Comment on above: Performed By: #### 0 0121, 09033, 32557, 92431, 36147 #### [facility] [address] [place] [address], [place] PEEP 10.0 CMH20 Normal [facility] Comment on above: Performed By: #### 0 0121, 75210, 51399, 37195, 13265 #### [facility] [address] [place] [address], [place] PF RATIO 109 mmHg Normal [place] Comment on above: Performed By: #### 0 0121, 85539, 81056, 20131, 30041 #### [facility] [address] [place] [address], [place] pH (Bld) 7.43 [pH] Normal 7.35-7.45 [facility] Comment on above: Result Comment: KINJAL REYNOSO NOTE: Effective 12/02/18, reference ranges for Respiratory GEM analyzers running arterial blood have been updated to reflect the electronic imaging system operator's published reference ranges. Performed By: #### 0 0121, 88735, 48581, 94274, 27488 #### [facility] [address] [place] [address], [place] TIDAL VOLUME (VT) CC 700 cc Normal [facility] Comment on above: Performed By: #### 0 0121, 24678, 61392, 64565, 31580 #### [facility] [address] [place] [address], [facility] BASE EXCESS -4 mmol/L Low -2-3 [facility] Comment on above: Performed By: #### 0 0121, 84037, 48692, 23566, 58879 #### [facility] [address] [place] [address], [facility] DELIVERY SYSTEMS VENTILATOR Normal [facility] Comment on above: Performed By: #### 0 0121, 52781, 91995, 48396, 81049 #### [facility] [address] [place] [address], [facility] FIO2 100 % Normal [facility] Comment on above: Performed By: #### 0 0121, 78927, 27973, 45497, 93289 #### [facility] [address] [place] [address], [facility] HCO3 (Bld) [Moles/Vol] 20 mmol/L Low 21-28 [place] Comment on above: Performed By: #### 0 0121, 68401, 01290, 00247, 05530 #### [facility] [address] [place] [address], [facility] IONIZED CALCIUM 1.23 mmol/L Normal 1.13-1.32 [facility] Comment on above: Performed By: #### 0 0121, 31452, 39332, 28558, 07768 #### [facility] [address] [place] [address], [facility] MIN VOLUME 15.1 Normal [place] Comment on above: Performed By: #### 0 0121, 43929, 45923, 83445, 01946 #### [facility] [address] [place] [address], [facility] MODALITY AC-ASSIST CONTROL Normal [facility] Comment on above: Performed By: #### 0 0121, 79738, 60827, 03392, 84918 #### [facility] [address] [place] [address], [place] Oxygen (Bld) [Partial pressure] 90 mm[Hg] Normal 83-108 [facility] Comment on above: Performed By: #### 0 0121, 67471, 13515, 72259, 96261 #### [facility] [address] [place] [address], [place] Oxygen saturation in Blood 95.1 % Normal 94.0-97.0 [place] Comment on above: Performed By: #### 0 0121, 78003, 97189, 86066, 85964 #### [facility] [address] [place] [address], [place] PCO2 32 mmHg Low 35-45 [facility] Comment on above: Performed By: #### 0 0121, 06637, 26836, 83798, 39284 #### [facility] [address] [place] [address], [place] PEEP 10.0 CMH20 Normal [place] Comment on above: Performed By: #### 0 0121, 42959, 45205, 29047, 48718 #### [facility] [address] [place] [address], [place] PF RATIO 900 mmHg Normal [place] Comment on above: Performed By: #### 0 0121, 56616, 71449, 92804, 55159 #### [facility] [address] [place] [address], [place] pH (Bld) 7.40 [pH] Normal 7.35-7.45 [facility] Comment on above: Result Comment: KINJAL REYNOSO NOTE: Effective 12/02/18, reference ranges for Respiratory GEM analyzers running arterial blood have been updated to reflect the electronic imaging system operator's published reference ranges. Performed By: #### 0 0121, 84996, 85679, 27116, 23343 #### [facility] [address] [place] [address], [facility] TIDAL VOLUME (VT) CC 700 cc Normal [place] Comment on above: Performed By: #### 0 0121, 05984, 59594, 99883, 57753 #### [facility] [address] [place] [address], [place] BASIC METABOLIC PANELon 06-2 Calcium [Mass/Vol] 8.1 mg/dL Low 8.6-10.3 [facility] Comment on above: Order Comment: << On admission If not done in ED>> No: Do not add to previous draw Performed By: #### 0 0121, 27424, 38488, 16295, 49460 #### [facility] [address] [place] [address], [place] Chloride [Moles/Vol] 112 mmol/L High 98-107 [facility] Comment on above: Order Comment: << On admission If not done in ED>> No: Do not add to previous draw Performed By: #### 0 0121, 26034, 69866, 84097, 24704 #### [facility] [address] [place] [address], [facility] CO2 [Moles/Vol] 24 mmol/L Normal 21-31 [facility] Comment on above: Order Comment: << On admission If not done in ED>> No: Do not add to previous draw Performed By: #### 0 0121, 78462, 11717, 26432, 61607 #### [facility] [address] [place] [address], [place] Creatinine [Mass/Vol] 0.97 mg/dL Normal 0.70-1.30 [facility] Comment on above: Order Comment: << On admission If not done in ED>> No: Do not add to previous draw Performed By: #### 0 0121, 53127, 78836, 09654, 02712 #### [facility] [address] [place] [address], [place] GFR/1.73 sq M predicted among blacks MDRD (S/P/Bld) [Vol rate/Area] mL/min/{1.73_m2} Normal >60 [facility] Comment on above: Order Comment: << On admission If not done in ED>> No: Do not add to previous draw Performed By: #### 0 0121, 87926, 11330, 73249, 21121 #### [facility] [address] [place] [address], [place] GFR/1.73 sq M predicted among non-blacks MDRD (S/P/Bld) [Vol rate/Area] mL/min/{1.73_m2} Normal >60 [facility] Comment on above: Order Comment: << On admission If not done in ED>> No: Do not add to previous draw Performed By: #### 0 0121, 59140, 65995, 50019, 73300 #### [facility] [address] [place] [address], [place] Glucose [Mass/Vol] 134 mg/dL High 70-100 [facility] Comment on above: Order Comment: << On admission If not done in ED>> No: Do not add to previous draw Performed By: #### 0 0121, 38299, 46366, 17407, 49658 #### [facility] [address] [place] [address], [place] Potassium [Moles/Vol] 3.9 mmol/L Normal 3.5-5.1 [facility] Comment on above: Order Comment: << On admission If not done in ED>> No: Do not add to previous draw Performed By: #### 0 0121, 12777, 33711, 39584, 46386 #### [facility] [address] [place] [address], [place] Sodium [Moles/Vol] 142 mmol/L Normal 136-145 [facility] Comment on above: Order Comment: << On admission If not done in ED>> No: Do not add to previous draw Performed By: #### 0 0121, 39737, 54926, 92740, 35686 #### [facility] [address] [place] [address], [place] Urea nitrogen [Mass/Vol] 16 mg/dL Normal 7-25 [place] Comment on above: Order Comment: << On admission If not done in ED>> No: Do not add to previous draw Performed By: #### 0 0121, 31181, 87522, 57704, 67479 #### [facility] [address] [place] [address], [place] Chloride [Moles/Vol] 113 mmol/L High 98-107 [facility] Comment on above: Order Comment: << On admission If not done in ED>> No: Do not add to previous draw Performed By: #### 0 0121, 71164, 49676, 81163, 90209 #### [facility] [address] [place] [address], [place] CO2 [Moles/Vol] 23 mmol/L Normal 21-31 [facility] Comment on above: Order Comment: << On admission If not done in ED>> No: Do not add to previous draw Performed By: #### 0 0121, 30686, 20438, 59232, 58224 #### [facility] [address] [place] [address], [place] Creatinine [Mass/Vol] 1.11 mg/dL Normal 0.70-1.30 [facility] Comment on above: Order Comment: << On admission If not done in ED>> No: Do not add to previous draw Performed By: #### 0 0121, 97506, 45071, 65354, 92638 #### [facility] [address] [place] [address], [place] Glucose [Mass/Vol] 157 mg/dL High 70-100 [facility] Comment on above: Order Comment: << On admission If not done in ED>> No: Do not add to previous draw Performed By: #### 0 0121, 03505, 61225, 00419, 03976 #### [facility] [address] [place] [address], [place] Potassium [Moles/Vol] 4.0 mmol/L Normal 3.5-5.1 [facility] Comment on above: Order Comment: << On admission If not done in ED>> No: Do not add to previous draw Performed By: #### 0 0121, 00410, 51497, 93189, 84077 #### [facility] [address] [place] [address], [place] Sodium [Moles/Vol] 143 mmol/L Normal 136-145 [facility] Comment on above: Order Comment: << On admission If not done in ED>> No: Do not add to previous draw Performed By: #### 0 0121, 55733, 50176, 28603, 78785 #### [facility] [address] [place] [address], [place] Urea nitrogen [Mass/Vol] 17 mg/dL Normal 7-25 [facility] Comment on above: Order Comment: << On admission If not done in ED>> No: Do not add to previous draw Performed By: #### 0 0121, 83653, 08738, 68701, 81850 #### [facility] [address] [place] [address], [place] Calcium [Mass/Vol] 8.7 mg/dL Normal 8.6-10.3 [facility] Comment on above: Order Comment: << On admission If not done in ED>> No: Do not add to previous draw Performed By: #### 0 0121, 19410, 09776, 78777, 08010 #### [facility] [address] [place] [address], [place] CO2 [Moles/Vol] 22 mmol/L Normal 21-31 [facility] Comment on above: Order Comment: << On admission If not done in ED>> No: Do not add to previous draw Performed By: #### 0 0121, 73321, 24200, 52400, 22299 #### [facility] [address] [place] [address], [facility] Creatinine [Mass/Vol] 1.00 mg/dL Normal 0.70-1.30 [facility] Comment on above: Order Comment: << On admission If not done in ED>> No: Do not add to previous draw Performed By: #### 0 0121, 94375, 12323, 89851, 10544 #### [facility] [address] [place] [address], [place] Glucose [Mass/Vol] 126 mg/dL High 70-100 [facility] Comment on above: Order Comment: << On admission If not done in ED>> No: Do not add to previous draw Performed By: #### 0 0121, 12819, 38223, 93108, 62304 #### [facility] [address] [place] [address], [facility] Potassium [Moles/Vol] 4.1 mmol/L Normal 3.5-5.1 [place] Comment on above: Order Comment: << On admission If not done in ED>> No: Do not add to previous draw Performed By: #### 0 0121, 28088, 91602, 31283, 52009 #### [facility] [address] [place] [address], [place] CBC COMPLETE BLOOD COUNTon 0 - Erythrocyte distribution width (RBC) [Ratio] 13.2 % Normal 11.5-15.0 [place] Comment on above: Order Comment: << On admission If not done in ED>> No: Do not add to previous draw Performed By: #### 0 0121, 28015, 46607, 25063, 90180 #### [facility] [address] [place] [address], [facility] Hematocrit (Bld) [Volume fraction] 39.8 % Normal 39.0-50.0 [facility] Comment on above: Order Comment: << On admission If not done in ED>> No: Do not add to previous draw Performed By: #### 0 0121, 50570, 29884, 67026, 49710 #### [facility] [address] [facility] [address] Hemoglobin (Bld) [Mass/Vol] 12.8 g/dL Low 13.0-17.0 [facility] Comment on above: Order Comment: << On admission If not done in ED>> No: Do not add to previous draw Performed By: #### 0 0121, 47729, 91135, 57557, 11388 #### [facility] [address] [facility] MCH (RBC) [Entitic mass] 28.8 pg Normal 27.0-33.0 [facility] Comment on above: Order Comment: << On admission If not done in ED>> No: Do not add to previous draw Performed By: #### 0 0121, 62423, 86257, 67989, 04898 #### [facility] [address] MCHC (RBC) [Mass/Vol] 32.2 g/dL Normal 32.0-35.0 [facility] Comment on above: Order Comment: << On admission If not done in ED>> No: Do not add to previous draw Performed By: #### 0 0121, 39868, 32887, 87532, 47383 #### [facility] [address] [facility] [place] [address], [facility] MCV (RBC) [Entitic vol] 89.4 fL Normal 82.0-98.0 [facility] Comment on above: Order Comment: << On admission If not done in ED>> No: Do not add to previous draw Performed By: #### 0 0121, 19052, 39640, 05786, 98964 #### [facility] [address] [facility] [place] [address], [facility] Nucleated RBC/100 WBC (Bld) [Ratio] 0 % Normal 0-0 [place] Comment on above: Order Comment: << On admission If not done in ED>> No: Do not add to previous draw Performed By: #### 0 0121, 70995, 62698, 93128, 13897 #### [facility] [address] [place] [address], [facility] PLAT CNT 144 10*3/uL Low 150-400 [facility] Comment on above: Order Comment: << On admission If not done in ED>> No: Do not add to previous draw Performed By: #### 0 0121, 93982, 17821, 68142, 57158 #### [facility] [address] [place] [address], [facility] RBC (Bld) [#/Vol] 4.45 10*6/uL Normal 4.20-5.70 [facility] Comment on above: Order Comment: << On admission If not done in ED>> No: Do not add to previous draw Performed By: #### 0 0121, 79237, 25593, 87597, 90303 #### [facility] [address] [facility] [place] [place] [address], [facility] WBC (Bld) [#/Vol] 18.51 10*3/uL High 4.00-10.60 [place] Comment on above: Order Comment: << On admission If not done in ED>> No: Do not add to previous draw Performed By: #### 0 0121, 61186, 91669, 45845, 91404 #### [facility] [address] [facility] [address], [facility] Erythrocyte distribution width (RBC) [Ratio] 13.1 % Normal 11.5-15.0 [facility] Comment on above: Order Comment: << On admission If not done in ED>> No: Do not add to previous draw Performed By: #### 0 0121, 34483, 20133, 98729, 78768 #### [facility] [address] [place] [address], [facility] Hematocrit (Bld) [Volume fraction] 43.9 % Normal 39.0-50.0 [facility] Comment on above: Order Comment: << On admission If not done in ED>> No: Do not add to previous draw Performed By: #### 0 0121, 77262, 13960, 12403, 52570 #### [facility] [address] [place] [address], [facility] Hemoglobin (Bld) [Mass/Vol] 13.9 g/dL Normal 13.0-17.0 [facility] Comment on above: Order Comment: << On admission If not done in ED>> No: Do not add to previous draw Performed By: #### 0 0121, 50904, 93619, 53778, 64213 #### [facility] [address] [place] [address], [facility] MCH (RBC) [Entitic mass] 28.7 pg Normal 27.0-33.0 [facility] Comment on above: Order Comment: << On admission If not done in ED>> No: Do not add to previous draw Performed By: #### 0 0121, 62071, 00775, 61905, 94563 #### [facility] [address] [place] [address], [facility] MCHC (RBC) [Mass/Vol] 31.7 g/dL Low 32.0-35.0 [facility] Comment on above: Order Comment: << On admission If not done in ED>> No: Do not add to previous draw Performed By: #### 0 0121, 76432, 45654, 12222, 83558 #### [facility] [address] [place] [address], [facility] MCV (RBC) [Entitic vol] 90.5 fL Normal 82.0-98.0 [place] Comment on above: Order Comment: << On admission If not done in ED>> No: Do not add to previous draw Performed By: #### 0 0121, 49309, 93365, 29046, 78712 #### [facility] [address] [place] [address], [facility] PLAT CNT 185 10*3/uL Normal 150-400 [facility] Comment on above: Order Comment: << On admission If not done in ED>> No: Do not add to previous draw Performed By: #### 0 0121, 79162, 75368, 06253, 96458 #### [facility] [address] [place] [address], [facility] RBC (Bld) [#/Vol] 4.85 10*6/uL Normal 4.20-5.70 [facility] Comment on above: Order Comment: << On admission If not done in ED>> No: Do not add to previous draw Performed By: #### 0 0121, 01305, 49872, 06085, 83072 #### [facility] [address] [place] [address], [facility] WBC (Bld) [#/Vol] 19.37 10*3/uL High 4.00-10.60 [facility] Comment on above: Order Comment: << On admission If not done in ED>> No: Do not add to previous draw Performed By: #### 0 0121, 26139, 60761, 75570, 84739 #### [facility] [address] [place] [address], [facility] Hematocrit (Bld) [Volume fraction] 42.3 % Normal 39.0-50.0 [place] Comment on above: Order Comment: << On admission If not done in ED>> No: Do not add to previous draw Performed By: #### 0 0121, 06051, 05709, 85102, 06304 #### [facility] [address] [place] [address], [facility] Hemoglobin (Bld) [Mass/Vol] 14.0 g/dL Normal 13.0-17.0 [facility] Comment on above: Order Comment: << On admission If not done in ED>> No: Do not add to previous draw Performed By: #### 0 0121, 50064, 25619, 41452, 10355 #### [facility] [address] [facility] [place] [address], [facility] MCH (RBC) [Entitic mass] 29.2 pg Normal 27.0-33.0 [facility] Comment on above: Order Comment: << On admission If not done in ED>> No: Do not add to previous draw Performed By: #### 0 0121, 06558, 80707, 62378, 51486 #### [facility] [address] [facility]. [address] MCHC (RBC) [Mass/Vol] 33.1 g/dL Normal 32.0-35.0 [place] Comment on above: Order Comment: << On admission If not done in ED>> No: Do not add to previous draw Performed By: #### 0 0121, 28675, 85599, 98869, 51480 #### [facility] [address] [facility] MCV (RBC) [Entitic vol] 88.3 fL Normal 82.0-98.0 [facility] Comment on above: Order Comment: << On admission If not done in ED>> No: Do not add to previous draw Performed By: #### 0 0121, 24711, 67178, 20061, 99518 #### [facility] [address] [place] [address], [facility] PLAT CNT 169 10*3/uL Normal 150-400 [facility] Comment on above: Order Comment: << On admission If not done in ED>> No: Do not add to previous draw Performed By: #### 0 0121, 08666, 48057, 50137, 95250 #### [facility] [address] [place] [address], [facility] RBC (Bld) [#/Vol] 4.79 10*6/uL Normal 4.20-5.70 [facility] Comment on above: Order Comment: << On admission If not done in ED>> No: Do not add to previous draw Performed By: #### 0 0121, 66077, 51049, 87389, 62263 #### [facility] [address] [place] [address], [facility] WBC (Bld) [#/Vol] 19.78 10*3/uL High 4.00-10.60 [place] Comment on above: Order Comment: << On admission If not done in ED>> No: Do not add to previous draw Performed By: #### 0 0121, 52705, 03031, 99769, 96138 #### [facility] [address] [place] [address], [facility] COOXIMETRYon 03-20-2019 COHB 2 % Normal [place] Comment on above: Performed By: #### 0 0121, 11440, 47688, 38212, 10360 #### [facility] [address] [place] [address], [facility] METHB 0 % Normal [facility] Comment on above: Performed By: #### 0 0121, 63449, 15093, 70553, 00984 #### [facility] [address] [place] [address], [facility] Oxygen saturation in Blood 68.0 % Normal 65.0-75.0 [facility] Comment on above: Performed By: #### 0 0121, 16037, 30736, 72902, 89852 #### [facility] [address] THB 13.2 g/dL Normal [facility] Comment on above: Performed By: #### 0 0121, 63803, 55071, 72774, 44834 #### [facility] [address] CPK-MB PROFILEon 03-20-2019 CK [Catalytic activity/Vol] 2914 U/L Critically high 30-223 [facility] Comment on above: Order Comment: << On admission If not done in ED>> No: Do not add to previous draw Performed By: #### 0 0121, 82134, 19388, 61562, 52655 #### [facility] [address] CK.MB [Mass/Vol] 3.8 ng/mL Critically high 0.0-1.9 [facility] Comment on above: Order Comment: << On admission If not done in ED>> No: Do not add to previous draw Result Comment: M-CR ITICAL RESULT(S) REVIEWED, CALLED TO AND READ BACK BY DAKOTAH MONTANO RN AT 0550 Performed By: #### 0 0121, 25730, 53911, 40084, 36467 #### [facility] [address] CK.MB [Mass/Vol] 111.1 ng/mL High 0.0-5.0 [facility] Comment on above: Order Comment: << On admission If not done in ED>> No: Do not add to previous draw Result Comment: IF T OTAL CK <200 U/L AND: 1. CKMB IS 5-10 NG/ML----BORDERLINE 2. CKMB IS >10 NG/ML----INDICATIVE OF NE OR IF TOTAL CK >200 U/L AND CKMB INDEX >1.9----INDICATIVE OF NE Performed By: #### 0 0121, 90384, 75509, 04328, 96194 #### [facility] [address] [place] [address], [facility] LACTATE BLOODon 03-20-2019 Lactate [Moles/Vol] 1.9 mmol/L Normal 0.5-2.2 [facility] Comment on above: Order Comment: << On admission If not done in ED>> No: Do not add to previous draw Performed By: #### 0 0121, 17818, 76388, 90124, 65664 #### [facility] [address] [place] [address], [facility] Lactate [Moles/Vol] 3.1 mmol/L Critically high 0.5-2.2 [place] Comment on above: Order Comment: << On admission If not done in ED>> No: Do not add to previous draw Result Comment: M-DC EVIOUS CRITICAL RESULT Performed By: #### 0 0121, 99682, 65169, 51604, 40932 #### [facility] [address] [facility] [place] [address], [facility] Lactate [Moles/Vol] 2.7 mmol/L Critically high 0.5-2.2 [place] Comment on above: Order Comment: << On admission If not done in ED>> No: Do not add to previous draw Result Comment: M-DC EVIOUS CRITICAL RESULT Performed By: #### 0 0121, 95906, 22241, 21975, 50315 #### [facility] [address] [place] [address], [facility] MAGNESIUM BLOODon 03-20-2019 Magnesium [Mass/Vol] 2.1 mg/dL Normal 1.9-2.7 [place] Comment on above: Order Comment: << On admission If not done in ED>> No: Do not add to previous draw Performed By: #### 0 0121, 05398, 28555, 68275, 59759 #### [facility] [address] [place] [address], [facility] Magnesium [Mass/Vol] 2.3 mg/dL Normal 1.9-2.7 [facility] Comment on above: Order Comment: << On admission If not done in ED>> No: Do not add to previous draw Performed By: #### 0 0121, 38497, 79253, 74295, 17772 #### [facility] [address] Magnesium [Mass/Vol] 2.4 mg/dL Normal 1.9-2.7 [facility] Comment on above: Order Comment: << On admission If not done in ED>> No: Do not add to previous draw Performed By: #### 0 0121, 68836, 89907, 68902, 02756 #### [facility] [address] Operative Reporton 9 Operative Report MR#: [id number] [facility] Pt. Name: Tracie Crain Room #: [id number] Discharge Date: Birthdate: 1965 OPERATIVE REPORT DATE OF SURGERY: 03/19/2019 SURGEON: Timbo Black MD PREOPERATIVE DIAGNOSES: Severe mitral regurgitation, paroxysmal atrial fibrillation with rapid ventricular response, and patent foramen ovale. POSTOPERATIVE DIAGNOSES: Severe mitral regurgitation, paroxysmal atrial fibrillation with rapid ventricular response, and patent foramen ovale. OPERATIONS: 1. Minimally invasive mitral valve repair. Triangular resection of P2 scallop, neochords construction x2 to the confluence of P1/P3 scallops, plication of P1 scallop, neochords construction x3 to the A1, A2, and A3 scallops of the mitral valve, anterolateral and posteromedial commissuroplasty and 30 mm Physio-Ring annuloplasty. 2. Extended left atrial CryoMAZE procedure. 3. Exclusion of left atrial appendage with 40 mm AtriClip device. 4. Closure of patent foramen ovale. 5. Independent interpretation of transesophageal echocardiogram. 6. Extra complexity because of the very complex repair requiring prolonged operative time and increased complexity of the case. ASSISTANTS: Shannan. ANESTHESIA: General with endotracheal intubation. ANESTHESIOLOGIST: Antonio Orozco MD. TOTAL CARDIOPULMONARY BYPASS TIME: 275 minutes. CROSS-CLAMP TIME: 180 minutes. INDICATIONS: This is a 53-year-old male with newly diagnosed paroxysmal atrial fibrillation/rapid ventricular response due to severe mitral regurgitation and ejection about 35%. The patient had severe DICTATION ENDS HERE. Electronically Signed by: Timbo Black MD 03/21/2019 11:03 A Timbo Black MD Date Dict: 03/19/2019/05:43 P/Timbo Black MD Date Trans: 03/20/2019 02:34 A/bessie [id number] cc: Titsu Villegas M.D. [address], [facility] [place] [address] [place] [facility] Operative Report MR#: [id number] [facility] Pt. 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 POSTOPERATIVE DIAGNOSES: Severe mitral regurgitation, bileaflet prolapse, paroxysmal atrial fibrillation, and patent foramen ovale. OPERATIONS: 1. Minimally invasive mitral valve repair, triangular resection of P2 scallop, neochord construction x2 to the region of P1, P3 imbrication, plication of P1 scallop, neochord construction x3 to A1, A2, and A3 scallops of the mitral valve, commissuroplasty x2(anterolateral and posteromedial commissures) and 30 mm Physio-Ring annuloplasty. 2. Extended left atrial CryoMAZE procedure. 3. Exclusion of left atrial appendage with 40 mm AtriClip device. 4. Closure of patent foramen ovale. 5. Independent interpretation of transesophageal echocardiogram. 6. Extra complexity because of very complex nature of the repair leading to increased time and technical dexterity required for this case. ASSISTANTS: Evan Eldridge. ANESTHESIA: General with endotracheal intubation. ANESTHESIOLOGIST: Antonio Orozco MD. CARDIOPULMONARY BYPASS TIME: 275 minutes. CROSS-CLAMP TIME: 180 minutes. INDICATIONS: This is a 53-year-old male, admitted to the hospital with congestive heart failure and cardiogenic shock due to new onset of atrial fibrillation with rapid ventricular response. Workup in the hospital revealed severe mitral regurgitation due to bileaflet prolapse and was taken to the operating room urgently. DESCRIPTION OF PROCEDURE: The patient brought to the operating room, and prepped and draped in the routine fashion with right chest elevated to 30 degrees. A GERMAN was done, showed ejection fraction about 30-35% with severe mitral regurgitation and bileaflet prolapse. There was a patent foramen ovale also. Surgery was started on the right groin where an incision was made, and the femoral artery and vein were dissected out. Because of his big body stature, the vessels were quite deep, but the vessels were of adequate quality and size. The patient was heparinized and the femoral artery and vein were cannulated in the usual fashion with GERMAN guidance. In fact, the guidewire kept going across the patent foramen ovale, but we were able to cannulate the right atrium successfully without any problems. Incision was made in the right chest below the nipple and the chest was entered through 4th intercostal space. At this time, cardiopulmonary bypass was initiated and the chest was entered. The diaphragm was retracted inferiorly. The pericardium was opened 2 cm in front of the phrenic nerve. CO2 insufflation was begun through the chest wall. A 5 mm camera port was placed in the 3rd intercostal space and transthoracic Jace clamp was applied through the 2nd intercostal space and antegrade modified del Nido cardioplegia was given for a total of 2 L. During the entire case, cardioplegia was given every 45 to 60 minutes. Left atrium was entered through the interatrial groove and mitral valve was examined. There was bileaflet prolapse, however, the leaflets were not very voluminous. In fact, the P2 scallop was very tall as seen forme fruste. The P1 and P3 scallops were rather thinned out and after triangular dissection of the P2 scallop, the P1 and P3 segments were brought together with interrupted 4-0 Prolene stitches. However, there was redundancy in theremaining posterior leaflet in the P1 region, which was then plicated toward the region of the P1 and P3 approximation with a 4-0 Prolene stitch. Next, the anterior leaflet prolapse was addressed. Three sets of Gor-Robles cords were brought out through anterolateral and posteromedial papillary muscle. These were 4.0 [place]-Robles stitches and they were brought out in an over and over fashion through the A1, A2, and A3 regions. The chords were brought out and left untied. The valve was assessed and was found to have significant prolapse at the P1, P3 approximated area also, therefore, an other set of cords were brought out from the posteromedial papillary muscle and brought up through the area of the approximation of the P1 and P3 scallops. With all the leaflets now secured adequately with the cords, the valve was undersized with a 30 mm Physio-Ring. After choosing the size of the ring, we proceed with cryoablation. Two minute ablations were performed and all 4 pulmonary veins were isolated as an island, another lesion was constructed from the left inferior pulmonary vein to the P3 region of the mitral annulus. Next, the ring was implanted with the help of 2-0 Ethibond stitches using Cor-Knots. The ring seated well where there was significant time required to adjust the height of the cords for getting a competent valve. After much adjustments were made, the sutures were tied . The A1, P1 and the A3, P3 commissures were plicated with a single 4-0 Prolene stitch that did the trick and there was no more leak. This took a long time of adjusting the different cords and was the most complex part of the operation. Next, a 40 mm AtriClip device was deployed at the base of left atrial appendage through the transverse sinus and then the left atrium was closed with 3-0 Prolene pledgeted stitches. The patient was placed in a Trendelenburg position and the cross-clamp was released. The aortic root and LV vents were turned on. Ventricular and atrial pacing wires were placed. Ventilation was begun after adequate deairing had been done. The LV vent was removed. Initial GERMAN showed some central leak, however, the heart was well perfused and over time this leak improved, however, there was significant dark venous bleeding noted from the transverse sinus. Exposure of the area showed a small laceration in the roof of the right atrium and left atrial junction. Therefore, we stayed on bypass and repaired that area with 3-0 Prolene pledgeted stitches. At this time, the LV vent was removed. Atriotomy was tied down. Hemostasis secured in the atriotomy suture line and every else in the surgical site there was no more bleeding. The aortic root vent was removed and the patient was weaned off from cardiopulmonary bypass. Hemodynamically, he was tachycardiac in 120s, but cardiac index and mixed venous was good, however, oxygenation was little soft. Saturation was about 89-90-91% and PO2 was in the 60 range. Bronchoscopy was done showed no abnormal findings. The lung was expanding well on the right side. On the left side, there was no evidence of pneumothorax. We stayed stable off bypass with the strips maintaining relatively stable hemodynamics and then protamine was started. After completion of protamine administration, venous cannula was removed. Arterial cannula was also removed. There was excellent pulse in the femoral artery beyond the cannulation site. All this time, we were extra cautious and making sure the patient was hemodynamically stable and we took our time starting the protamine and other medications and finally after about an hour or so we decided to close the chest with #2 pericostal and 4-0 Monocryl subcuticular stitches. GERMAN now showed no mitral regurgitation. Ventricular function was at least preserved if not better and the patient was in sinus tachycardia. The leg wound was also closed in layers using 0 Vicryl, 2-0 Vicryl, 4-0 Monocryl stitches. After dressing the patient up, we performed a limited ultrasound of the left chest and documented that the lung was indeed moving and there was no pneumothorax on that side or a big collection of fluid on the left side also. At this time, saturation was 93-94% and he was taken to the ICU in a critical condition. Electronically Signed by: Timbo Black MD 03/21/2019 11:03 A Timbo Black MD Date Dict: 03/19/2019/06:16 P/Timbo Black MD Date Trans: 03/20/2019 02:21 A/bessie [id number] cc: Titus Villegas M.D. [address] [place] [address] Normal [facility] POC GLUCOSE LABon 03-20-2019 Glucose [Mass/Vol] 117 mg/dL High 70-100 [facility] Comment on above: Performed By: #### 0 0121, 63846, 03468, 45961, 80376 #### [facility] [address] [place] [address], [place] Glucose [Mass/Vol] 114 mg/dL High 70-100 [facility] Comment on above: Performed By: #### 0 0121, 36617, 57879, 12493, 90055 #### [facility] [address] [place] [address], [place] Glucose [Mass/Vol] 117 mg/dL High 70-100 [facility] Comment on above: Performed By: #### 0 0121, 37719, 38353, 02545, 39400 #### [facility] [address] [place] [address], [place] Glucose [Mass/Vol] 99 mg/dL Normal 70-100 [facility] Comment on above: Performed By: #### 0 0121, 75149, 09619, 02182, 96184 #### [facility] [address] [place] [address], [place] Glucose [Mass/Vol] 125 mg/dL High 70-100 [facility] Comment on above: Performed By: #### 0 0121, 10005, 69286, 58150, 83417 #### [facility] [address] [place] [address], [place] Glucose [Mass/Vol] 102 mg/dL High 70-100 [facility] Comment on above: Performed By: #### 0 0121, 73469, 50958, 02205, 47651 #### [facility] [address] [place] [address], [place] Glucose [Mass/Vol] 97 mg/dL Normal 70-100 [facility] Comment on above: Performed By: #### 0 0121, 95027, 86021, 84748, 72207 #### [facility] [address] [place] [address], [place] Glucose [Mass/Vol] 102 mg/dL High 70-100 [facility] Comment on above: Performed By: #### 0 0121, 50417, 74671, 17941, 79977 #### [facility] [address] [place] [address], [place] Glucose [Mass/Vol] 124 mg/dL High 70-100 [facility] Comment on above: Performed By: #### 0 0121, 30304, 45337, 35885, 32221 #### [facility] [address] [place] [address], [place] Glucose [Mass/Vol] 112 mg/dL High 70-100 [facility] Comment on above: Order Comment: << On admission If not done in ED>> No: Do not add to previous draw Performed By: #### 0 0121, 11259, 94554, 60365, 01568 #### [facility] [address] [place] [address], [place] Glucose [Mass/Vol] 129 mg/dL High 70-100 [facility] Comment on above: Performed By: #### 0 0121, 20593, 06913, 19186, 41378 #### [facility] [address] [place] [address], [place] Glucose [Mass/Vol] 122 mg/dL High 70-100 [facility] Comment on above: Performed By: #### 0 0121, 74387, 26888, 98868, 00372 #### [facility] [address] [place] [address], [place] Glucose [Mass/Vol] 133 mg/dL High 70-100 [facility] Comment on above: Performed By: #### 0 0121, 75805, 53183, 66320, 82043 #### [facility] [address] [facility] [place] [address], [place] Glucose [Mass/Vol] 130 mg/dL High 70-100 [facility] Comment on above: Performed By: #### 5 7307 #### [facility] [address] [facility] [place] [address], [place] Glucose [Mass/Vol] 142 mg/dL High 70-100 [facility] Comment on above: Performed By: #### 5 7307 #### [facility] [address] [facility] [place] [address], [facility] PORTABLE CHEST 1 VIEWon 03-01 PORTABLE CHEST 1 VIEW [facility] Department of Radiology [address] [place] [id number] ======== Patient Name: TRACIE CRAIN : 1965 Sex: M Age: Race: NA Pt. Location: [id number] Patient Status: I Ordered Date: 03/20/2019 8:05:00 PM Completed Date: 03/20/2019 08:43 PM Requesting Provider: TIMBO BLACK Attending Provider: TIMBO BLACK Report Copy To: Signs & Symptoms: O2 Desaturation History: Patient history not available Comments: Check E.T. Position Exam: PORTABLE CHEST 1 VIEW ======== PORTABLE CHEST 1 VIEW 03/20/2019 8:43 PM EDT SIGNS AND SYMPTOMS: O2 Desaturation TECHNOLOGIST COMMENTS: O2 desat. for ET placement per order QUESTION FOR THE RADIOLOGIST: Check E.T. Position PROTOCOL: AP(PA) view was obtained. COMPARISON: Chest radiograph March 20, 2019 FINDINGS: Cardiomediastinal silhouette remains unchanged. Trachea is midline. ET tube is 7 cm from the loki. [place]ol[place]-Sher catheter with tip projecting over the pulmonary trunk. Two right chest tubes, the medial tube appears retracted and now appears to project at the level of the loki. Valve replacements. NG tube seen with tip projecting over the stomach. Slightly improved aeration of the right upper lobe atelectasis, persistent in the bases. No acute osseous abnormality. No subdiaphragmatic free air. IMPRESSION: 1. ET tube is 7 cm from the loki, unchanged from prior study. 2. Redemonstration of 2 right chest tubes, the medial tube appears retracted as described above. 3. Slightly improved aeration of the right upper lobe atelectasis, unchanged in the bases. Approved by:Anai Alvarado on 03/20/2019 9:04 PM EDT. I, Yenni Osuna, have reviewed the images and report and concur with these findings. Electronically signed by:Yenni Osuna. Transcribed by: [email or web address], User Resident: ANAI ALVARADO Electronically Signed by: YENNI OSUNA @ 03/22/2019 11:07 AM I personally read this/these film(s) with this resident Normal [facility] Comment on above: Order Comment: << On admission If not done in ED>> No: Do not add to previous draw PORTABLE CHEST 1 VIEW [facility] Department of Radiology [address] [place] [id number] ======== Patient Name: TRACIE CRAIN : 1965 Sex: M Age: Race: NA Pt. Location: [id number] Patient Status: I Ordered Date: 03/20/2019 5:00:00 AM Completed Date: 03/20/2019 06:27 AM Requesting Provider: TIMBO BLACK Attending Provider: TIMBO BLACK Report Copy To: Signs & Symptoms: Post OP History: Patient history not available Comments: R/O Atelectasis Exam: PORTABLE CHEST 1 VIEW ======== PORTABLE CHEST 1 VIEW 03/20/2019 6:27 AM EDT SIGNS AND SYMPTOMS: Post OP TECHNOLOGIST COMMENTS: decreased oxygen saturation levels QUESTION FOR THE RADIOLOGIST: R/O Atelectasis PROTOCOL: AP(PA) view was obtained. COMPARISON: Chest radiograph March 19, 2019 FINDINGS: The mediastinal silhouette remains unchanged. Trachea is midline. ET tube is 7 cm from the lkoi. J[place]-Sher catheter with tip projecting over the pulmonary trunk. Two right chest tubes, unchanged. Valve replacements. Nasogastric tube seen with tip projecting over the stomach. Slightly worsening right basilar predominant atelectasis. No acute osseous abnormality. No subdiaphragmatic free air. IMPRESSION: 1. Progression of right basilar predominant atelectasis. 2. Lines and tubes as described above. Approved by:Anai Alvarado on 03/20/2019 6:51 AM EDT. I, Divya Collins, have reviewed the images and report and concur with these findings. Electronically signed by:Divya Collins. Transcribed by: [email or web address], User Resident: ANAI ALVARADO Electronically Signed by: DIVYA COLLINS @ 03/20/2019 11:01 AM I personally read this/these film(s) with this resident Normal [facility] Comment on above: Order Comment: << On admission If not done in ED>> No: Do not add to previous draw PROTHROMBIN TIMEon 9 INR Coag (PPP) [Relative time] 1.37 {INR} High 0.91-1.16 [facility] Comment on above: Order Comment: << On admission If not done in ED>> No: Do not add to previous draw Result Comment: ACCC P RECOMMENDED INR FOR WARFARIN THERAPY ------- ------- CONDITION INR PROPHYLAXIS OF VENOUS THROMBOSIS 2-3 (HIGH-RISK SURGERY) TREATMENT OF VENOUS THROMBOSIS 2-3 TREATMENT OF PULMONARY EMBOLISM 2-3 PREVENTION OF SYSTEMIC EMBOLISM: 2-3 ACUTE MYOCARDIAL INFARCTION TISSUE HEART VALVES VALVULAR HEART DISEASE ATRIAL FIBRILLATION RECURRENT SYSTEMIC EMBOLISM MECHANICAL HEART VALVE 2.5-3.5 FROM: ORAL ANTICOAGULANTS. MECHANISM OF ACTION, CLINICAL EFFECTIVENESS, AND OPTIMAL THERAPEUTIC RANGE. CHEST 1995;108:231S-246S. Performed By: #### 0 0121, 42787, 28182, 83051, 06944 #### [facility] [address] PT Coag (PPP) [Time] 16.9 s High 12.3-14.8 [facility] Comment on above: Order Comment: << On admission If not done in ED>> No: Do not add to previous draw Result Comment: ALL RESULTS MUST BE INTERPRETED WITH RESPECT TO BLOOD DRAWING ARTIFACT OR DILUTION ERROR OF ANTICOAGULANT AT THE TIME OF SAMPLING. Performed By: #### 0 0121, 94352, 84265, 36231, 20848 #### [facility] [address] [place] [address], [place] ACTIVATED CLOTTING TIMEon ACTIVATED CLOTTING TIME 115 sec Normal 82-152 [facility] Comment on above: Performed By: #### 8 5123, 17062 #### [facility] [address] [place] [address], [place] ACTIVATED CLOTTING TIME 508 sec High 82-152 [facility] Comment on above: Performed By: #### 8 5123, 20985 #### [facility] [address] [place] [address], [place] ACTIVATED CLOTTING TIME 508 sec High 82-152 [facility] Comment on above: Performed By: #### 8 5123, 60325 #### [facility] [address] [place] [address], [place] ACTIVATED CLOTTING TIME 610 sec High 82-152 [facility] Comment on above: Performed By: #### 8 5123, 76794 #### [facility] [address] [place] [address], [place] ACTIVATED CLOTTING TIME 621 sec High 82-152 [facility] Comment on above: Performed By: #### 8 5123, 32437 #### [facility] [address] [place] [address], [place] ACTIVATED CLOTTING TIME 660 sec High 82-152 [facility] Comment on above: Performed By: #### 8 5123, 92478 #### [facility] [address] [place] [address], [place] ACTIVATED CLOTTING TIME 508 sec High 82-152 [facility] Comment on above: Performed By: #### 8 5123, 28825 #### [facility] [address] [place] [address], [place] ACTIVATED CLOTTING TIME 514 sec High 82-152 [facility] Comment on above: Performed By: #### 0 0121, 15019, 74058, 54788, 06715 #### [facility] [address] [place] [address], [facility] ACTIVATED CLOTTING TIME 514 sec High 82-152 [facility] Comment on above: Performed By: #### 0 0121, 75756, 15602, 58962, 11351 #### [facility] [address] [place] [address], [facility] ACTIVATED CLOTTING TIME 502 sec High 82-152 [facility] Comment on above: Performed By: #### 0 0121, 58929, 15300, 26118, 20781 #### [facility] [address] [place] [address], [facility] ACTIVATED CLOTTING TIME 473 sec High 82-152 [facility] Comment on above: Performed By: #### 0 0121, 91893, 40767, 75569, 16336 #### [facility] [address] [place] [address], [facility] ACTIVATED CLOTTING TIME 508 sec High 82-152 [facility] Comment on above: Performed By: #### 0 0121, 84807, 02141, 04622, 81345 #### [facility] [address] [place] [address], [facility] ACTIVATED CLOTTING TIME 115 sec Normal 82-152 [facility] Comment on above: Performed By: #### 0 0121, 97740, 53531, 68073, 63111 #### [facility] [address] [place] [id number] APTTon 03-19-2019 aPTT Coag (Bld) [Time] 28.6 s Normal 25.0-35.0 [facility] Comment on above: Result Comment: ALL RESULTS MUST BE INTERPRETED WITH RESPECT TO BLOOD DRAWING ARTIFACT OR DILUTION ERROR OF ANTICOAGULANT AT THE TIME OF SAMPLING. THE APTT SHOULD NOT BE USED TO MONITOR UNFRACTIONATED HEPARIN THERAPY, THIS LABORATORY NO LONGER HAS AN ESTABLISHED THERAPEUTIC RANGE BASED ON THE APTT. IT IS RECOMMENDED THAT THE [facility] - HEPARIN ASSAY (ANTI-XA ACTIVITY) BE USED FOR THIS PURPOSE. Performed By: #### 8 5123, 15580 #### [facility] [address] aPTT Coag (Bld) [Time] 33.6 s Normal 25.0-35.0 [place] Comment on above: Order Comment: If no t done in ED No: Do not add to previous draw Result Comment: ALL RESULTS MUST BE INTERPRETED WITH RESPECT TO BLOOD DRAWING ARTIFACT OR DILUTION ERROR OF ANTICOAGULANT AT THE TIME OF SAMPLING. THE APTT SHOULD NOT BE USED TO MONITOR UNFRACTIONATED HEPARIN THERAPY, THIS LABORATORY NO LONGER HAS AN ESTABLISHED THERAPEUTIC RANGE BASED ON THE APTT. IT IS RECOMMENDED THAT THE [facility] - HEPARIN ASSAY (ANTI-XA ACTIVITY) BE USED FOR THIS PURPOSE. Performed By: #### 0 0121, 36809, 01929, 18461, 81253 #### [facility] [address] ARTERIAL BLOOD GAS W/COOXon 03-19-2019 BASE EXCESS -8 mmol/L Low -2-3 [facility] Comment on above: Performed By: #### 8 0301, 55816 ####[facility] [facility].[address] COHB 2.6 % High 0.0-1.5 [facility] Comment on above: Performed By: #### 8 8721, 52112 ####[facility] [facility].[address] DELIVERY SYSTEMS VENT Normal [facility] Comment on above: Performed By: #### 8 0551, 71673 ####[facility] [facility] [place] [place] [address], [facility] FIO2 100 % Normal [place] Comment on above: Performed By: #### 8 1151, 51372 ####[facility] [facility] [place] [place] [address], [facility] HCO3 (Bld) [Moles/Vol] 19 mmol/L Low 21-28 [facility] Comment on above: Performed By: #### 8 4511, 97843 ####[facility] [place] [address], [facility] METHB 0.8 % Normal 0.0-1.5 [place] Comment on above: Performed By: #### 8 4511, 86483 ####[facility] [place] [address], [facility] MIN VOLUME 11.6 Normal [place] Comment on above: Performed By: #### 8 451, 45190 ####[facility] [place] [address], [facility] MODALITY AC Normal [facility] Comment on above: Performed By: #### 8 451, 56523 ####[facility] [place] [address], [facility] Oxygen (Bld) [Partial pressure] 61 mm[Hg] Low 83-108 [facility] Comment on above: Performed By: #### 8 4511, 32992 ####[facility] [place] [address], [facility] Oxygen saturation in Blood 88.9 % Low 94.0-97.0 [place] Comment on above: Performed By: #### 8 4511, 11029 ####[facility] [place] [address], [facility] PCO2 43 mmHg Normal 35-45 [facility] Comment on above: Performed By: #### 8 4511, 73883 ####[facility] [place] [address], [place] PEEP 10.0 CMH20 Normal [place] Comment on above: Performed By: #### 8 4511, 27629 ####[facility] [place] [address], [place] pH (Bld) 7.26 [pH] Low 7.35-7.45 [facility] Comment on above: Result Comment: KINJAL REYNOSO NOTE: Effective 12/02/18, reference ranges for Respiratory GEM analyzers running arterial blood have been updated to reflect the electronic imaging system operator's published reference ranges. Performed By: #### 8 4511, 09904 ####[facility] [place] [address], [facility] THB 14.2 g/dL Normal 12.0-16.3 [facility] Comment on above: Performed By: #### 8 4511, 26248 ####[facility] TIDAL VOLUME (VT) CC 700 cc Normal [place] Comment on above: Performed By: #### 8 7691, 04896 ####[facility] ARTERIAL BLOOD GAS WITH ICAo n 03-19-2019 BASE EXCESS -4 mmol/L Low -2-3 [facility] Comment on above: Performed By: #### 5 7307 #### [facility] [address] [place] [address], [facility] DELIVERY SYSTEMS MV Normal [facility] Comment on above: Performed By: #### 5 7307 #### [facility] [address] [place] [address], [facility] FIO2 100 % Normal [place] Comment on above: Performed By: #### 5 7307 #### [facility] [address] [place] [address], [facility] HCO3 (Bld) [Moles/Vol] 20 mmol/L Low 21-28 [facility] Comment on above: Performed By: #### 5 7336 #### [facility] [address] [place] [address], [facility] IONIZED CALCIUM 1.21 mmol/L Normal 1.13-1.32 [facility] Comment on above: Performed By: #### 5 7307 #### [facility] [address] [place] [address], [facility] MIN VOLUME 13.6 Normal [place] Comment on above: Performed By: #### 5 7307 #### [facility] [address] [place] [address], [facility] MODALITY AC Normal [place] Comment on above: Performed By: #### 5 7307 #### [facility] [address] [place] [address], [facility] Oxygen (Bld) [Partial pressure] 74 mm[Hg] Low 83-108 [facility] Comment on above: Performed By: #### 5 7307 #### [facility] [address] [place] [address], [facility] Oxygen saturation in Blood 93.5 % Low 94.0-97.0 [place] Comment on above: Performed By: #### 5 7307 #### [facility] [address] [place] [address], [facility] PCO2 33 mmHg Low 35-45 [facility] Comment on above: Performed By: #### 5 7307 #### [facility] [address] [place] [address], [facility] PEEP 10.0 CMH20 Normal [place] Comment on above: Performed By: #### 5 7307 #### [facility] [address] [place] [address], [place] PF RATIO 74 mmHg Normal [place] Comment on above: Performed By: #### 5 7307 #### [facility] [address] [place] [address], [place] pH (Bld) 7.39 [pH] Normal 7.35-7.45 [facility] Comment on above: Result Comment: PLEA SE NOTE: Effective 12/02/18, reference ranges for Respiratory GEM analyzers running arterial blood have been updated to reflect the electronic imaging system operator's published reference ranges. Performed By: #### 5 7307 #### [facility] [address] TIDAL VOLUME (VT) CC 700 cc Normal [place] Comment on above: Performed By: #### 5 7307 #### [facility] [address] [place] [address], [facility] BASE EXCESS -7 mmol/L Low -2-3 [facility] Comment on above: Order Comment: R/O P ulmonary Edema Performed By: #### 8 6271, 01649 ####[facility] [facility] DELIVERY SYSTEMS MV Normal [facility] Comment on above: Order Comment: R/O P ulmonary Edema Performed By: #### 8 2291, 93025 ####[facility] [facility] [place] [address], [facility] FIO2 100 % Normal [facility] Comment on above: Order Comment: R/O P ulmonary Edema Performed By: #### 8 3281, 38719 ####[facility] [facility] [place] [address], [facility] HCO3 (Bld) [Moles/Vol] 21 mmol/L Normal 21-28 [facility] Comment on above: Order Comment: R/O P ulmonary Edema Performed By: #### 8 4071, 80025 ####[facility] [place] [address], [facility] IONIZED CALCIUM 1.36 mmol/L High 1.13-1.32 [facility] Comment on above: Order Comment: R/O P ulmonary Edema Performed By: #### 8 3001, 13814 ####[facility] [place] [address], [facility] MIN VOLUME 13.0 Normal [place] Comment on above: Order Comment: R/O P ulmonary Edema Performed By: #### 8 4511, 40549 ####[facility] [place] [address], [facility] MODALITY SIMV Normal [place] Comment on above: Order Comment: R/O P ulmonary Edema Performed By: #### 8 4511, 10040 ####[facility] [place] [address], [facility] Oxygen (Bld) [Partial pressure] 63 mm[Hg] Low 83-108 [facility] Comment on above: Order Comment: R/O P ulmonary Edema Performed By: #### 8 4511, 01562 ####[facility] [place] [address], [facility] Oxygen saturation in Blood 89.3 % Low 94.0-97.0 [place] Comment on above: Order Comment: R/O P ulmonary Edema Performed By: #### 8 4511, 20573 ####[facility] [place] [address], [facility] PCO2 46 mmHg High 35-45 [facility] Comment on above: Order Comment: R/O P ulmonary Edema Performed By: #### 8 4511, 08999 ####[facility] [place] [address], [facility] PEEP 8.0 CMH20 Normal [place] Comment on above: Order Comment: R/O P ulmonary Edema Performed By: #### 8 4511, 76318 ####[facility] [place] [address], [facility] PF RATIO 63 mmHg Normal [place] Comment on above: Order Comment: R/O P ulmonary Edema Performed By: #### 8 9031, 71513 ####[facility] pH (Bld) 7.26 [pH] Low 7.35-7.45 [place] Comment on above: Order Comment: R/O P ulmonary Edema Result Comment: KINJAL REYNOSO NOTE: Effective 12/02/18, reference ranges for Respiratory GEM analyzers running arterial blood have been updated to reflect the electronic imaging system operator's published reference ranges. Performed By: #### 8 5851, 22121 ####[facility] [place] [address], [facility] PRESSURE SUPPORT 5 Normal [facility] Comment on above: Order Comment: R/O P ulmonary Edema Performed By: #### 8 2131, 01630 ####[facility] TIDAL VOLUME (VT) CC 600 cc Normal [facility] Comment on above: Order Comment: R/O P ulmonary Edema Performed By: #### 8 9131, 08385 ####[facility] BASIC METABOLIC PANELon 06-2 0-2019 Calcium [Mass/Vol] 8.6 mg/dL Normal 8.6-10.3 [facility] Comment on above: Order Comment: No: D o not add to previous draw Performed By: #### 5 7307 #### [facility] [address] [place] [address], [facility] Chloride [Moles/Vol] 113 mmol/L High 98-107 [facility] Comment on above: Order Comment: No: D o not add to previous draw Performed By: #### 5 7333 #### [facility] [address] [place] [address], [facility] CO2 [Moles/Vol] 21 mmol/L Normal 21-31 [facility] Comment on above: Order Comment: No: D o not add to previous draw Performed By: #### 5 7319 #### [facility] [address] [place] [address], [place] Creatinine [Mass/Vol] 1.14 mg/dL Normal 0.70-1.30 [facility] Comment on above: Order Comment: No: D o not add to previous draw Performed By: #### 5 7307 #### [facility] [address] [place] [address], [place] GFR/1.73 sq M predicted among blacks MDRD (S/P/Bld) [Vol rate/Area] mL/min/{1.73_m2} Normal >60 [facility] Comment on above: Order Comment: No: D o not add to previous draw Performed By: #### 5 7307 #### [facility] [address] [place] [address], [place] GFR/1.73 sq M predicted among non-blacks MDRD (S/P/Bld) [Vol rate/Area] mL/min/{1.73_m2} Normal >60 [facility] Comment on above: Order Comment: No: D o not add to previous draw Performed By: #### 5 7307 #### [facility] [address] [place] [address], [place] Glucose [Mass/Vol] 164 mg/dL High 70-100 [facility] Comment on above: Order Comment: No: D o not add to previous draw Performed By: #### 5 7307 #### [facility] [address] [place] [address], [place] Potassium [Moles/Vol] 4.3 mmol/L Normal 3.5-5.1 [facility] Comment on above: Order Comment: No: D o not add to previous draw Performed By: #### 5 7307 #### [facility] [address] [place] [address], [place] Sodium [Moles/Vol] 142 mmol/L Normal 136-145 [facility] Comment on above: Order Comment: No: D o not add to previous draw Performed By: #### 5 7307 #### [facility] [address] [place] [address], [place] Urea nitrogen [Mass/Vol] 19 mg/dL Normal 7-25 [place] Comment on above: Order Comment: No: D o not add to previous draw Performed By: #### 5 7307 #### [facility] [address] [place] [address], [place] Calcium [Mass/Vol] 9.8 mg/dL Normal 8.6-10.3 [facility] Comment on above: Order Comment: If no t done in ED No: Do not add to previous draw Performed By: #### 8 5123, 46430 #### [facility] [address] [place] [address], [place] Chloride [Moles/Vol] 112 mmol/L High 98-107 [facility] Comment on above: Order Comment: If no t done in ED No: Do not add to previous draw Performed By: #### 8 5123, 67331 #### [facility] [address] [place] [address], [place] CO2 [Moles/Vol] 21 mmol/L Normal 21-31 [facility] Comment on above: Order Comment: If no t done in ED No: Do not add to previous draw Performed By: #### 8 5123, 93178 #### [facility] [address] [place] [address], [place] Creatinine [Mass/Vol] 1.07 mg/dL Normal 0.70-1.30 [facility] Comment on above: Order Comment: If no t done in ED No: Do not add to previous draw Performed By: #### 8 5123, 15662 #### [facility] [address] [place] [address], [place] GFR/1.73 sq M predicted among blacks MDRD (S/P/Bld) [Vol rate/Area] mL/min/{1.73_m2} Normal >60 [facility] Comment on above: Order Comment: If no t done in ED No: Do not add to previous draw Performed By: #### 8 5123, 88683 #### [facility] [address] [place] [address], [place] GFR/1.73 sq M predicted among non-blacks MDRD (S/P/Bld) [Vol rate/Area] mL/min/{1.73_m2} Normal >60 [facility] Comment on above: Order Comment: If no t done in ED No: Do not add to previous draw Performed By: #### 8 5123, 10051 #### [facility] [address] [place] [address], [place] Glucose [Mass/Vol] 147 mg/dL High 70-100 [facility] Comment on above: Order Comment: If no t done in ED No: Do not add to previous draw Performed By: #### 8 5123, 93124 #### [facility] [address] [place] [address], [place] Potassium [Moles/Vol] 3.9 mmol/L Normal 3.5-5.1 [facility] Comment on above: Order Comment: If no t done in ED No: Do not add to previous draw Performed By: #### 8 5123, 96454 #### [facility] [address] [place] [address], [place] Sodium [Moles/Vol] 142 mmol/L Normal 136-145 [facility] Comment on above: Order Comment: If no t done in ED No: Do not add to previous draw Performed By: #### 8 5123, 50144 #### [facility] [address] [place] [address], [place] Urea nitrogen [Mass/Vol] 19 mg/dL Normal 7-25 [facility] Comment on above: Order Comment: If no t done in ED No: Do not add to previous draw Performed By: #### 8 5123, 97294 #### [facility] [address] [place] [address], [place] Calcium [Mass/Vol] 9.5 mg/dL Normal 8.6-10.3 [facility] Comment on above: Order Comment: If no t done in ED No: Do not add to previous draw Performed By: #### 0 0121, 67231, 83573, 06354, 81553 #### [facility] [address] [place] [address], [place] Chloride [Moles/Vol] 105 mmol/L Normal 98-107 [facility] Comment on above: Order Comment: If no t done in ED No: Do not add to previous draw Performed By: #### 0 0121, 26569, 57037, 20980, 34897 #### [facility] [address] [place] [address], [place] CO2 [Moles/Vol] 24 mmol/L Normal 21-31 [facility] Comment on above: Order Comment: If no t done in ED No: Do not add to previous draw Performed By: #### 0 0121, 86368, 18728, 25887, 98590 #### [facility] [address] [place] [address], [place] Creatinine [Mass/Vol] 1.11 mg/dL Normal 0.70-1.30 [facility] Comment on above: Order Comment: If no t done in ED No: Do not add to previous draw Performed By: #### 0 0121, 44857, 71473, 73327, 82439 #### [facility] [address] [place] [address], [place] GFR/1.73 sq M predicted among blacks MDRD (S/P/Bld) [Vol rate/Area] mL/min/{1.73_m2} Normal >60 [facility] Comment on above: Order Comment: If no t done in ED No: Do not add to previous draw Performed By: #### 0 0121, 25858, 78711, 50406, 56040 #### [facility] [address] [place] [address], [place] GFR/1.73 sq M predicted among non-blacks MDRD (S/P/Bld) [Vol rate/Area] mL/min/{1.73_m2} Normal >60 [facility] Comment on above: Order Comment: If no t done in ED No: Do not add to previous draw Performed By: #### 0 0121, 17425, 46740, 03247, 28278 #### [facility] [address] [place] [address], [place] Glucose [Mass/Vol] 89 mg/dL Normal 70-100 [facility] Comment on above: Order Comment: If no t done in ED No: Do not add to previous draw Performed By: #### 0 0121, 78269, 12953, 35438, 06008 #### [facility] [address] [place] [address], [place] Potassium [Moles/Vol] 4.2 mmol/L Normal 3.5-5.1 [facility] Comment on above: Order Comment: If no t done in ED No: Do not add to previous draw Performed By: #### 0 0121, 68934, 18284, 26008, 75402 #### [facility] [address] [place] [address], [place] Sodium [Moles/Vol] 135 mmol/L Low 136-145 [facility] Comment on above: Order Comment: If no t done in ED No: Do not add to previous draw Performed By: #### 0 0121, 61920, 36578, 24143, 61257 #### [facility] [address] [place] [address], [place] Urea nitrogen [Mass/Vol] 17 mg/dL Normal 7-25 [facility] Comment on above: Order Comment: If no t done in ED No: Do not add to previous draw Performed By: #### 0 0121, 41945, 10139, 41127, 42243 #### [facility] [address] CBC COMPLETE BLOOD COUNTon 0 03-19-2019 Erythrocyte distribution width (RBC) [Ratio] 13.0 % Normal 11.5-15.0 [facility] Comment on above: Order Comment: No: D o not add to previous draw Performed By: #### 5 7307 #### [facility] [address] [place] [address], [facility] Hematocrit (Bld) [Volume fraction] 42.7 % Normal 39.0-50.0 [facility] Comment on above: Order Comment: No: D o not add to previous draw Performed By: #### 5 7307 #### [facility] [address] [place] [id number], [facility] Hemoglobin (Bld) [Mass/Vol] 14.3 g/dL Normal 13.0-17.0 [facility] Comment on above: Order Comment: No: D o not add to previous draw Performed By: #### 5 7307 #### [facility] [address] [place] [address], [facility] MCH (RBC) [Entitic mass] 29.4 pg Normal 27.0-33.0 [facility] Comment on above: Order Comment: No: D o not add to previous draw Performed By: #### 5 7307 #### [facility] [address] [place] [address], [facility] MCHC (RBC) [Mass/Vol] 33.5 g/dL Normal 32.0-35.0 [facility] Comment on above: Order Comment: No: D o not add to previous draw Performed By: #### 5 7307 #### [facility] [address] [place] [id number], [facility] MCV (RBC) [Entitic vol] 87.9 fL Normal 82.0-98.0 [facility] Comment on above: Order Comment: No: D o not add to previous draw Performed By: #### 5 7307 #### [facility] [address] [place] [address], [facility] Nucleated RBC/100 WBC (Bld) [Ratio] 0 % Normal 0-0 [facility] Comment on above: Order Comment: No: D o not add to previous draw Performed By: #### 5 7307 #### [facility] [address] [place] [id number], [facility] PLAT CNT 179 10*3/uL Normal 150-400 [facility] Comment on above: Order Comment: No: D o not add to previous draw Performed By: #### 5 7307 #### [facility] [address] [place] [id number], [facility] RBC (Bld) [#/Vol] 4.86 10*6/uL Normal 4.20-5.70 [facility] Comment on above: Order Comment: No: D o not add to previous draw Performed By: #### 5 7307 #### [facility] [address] [place] [address], [facility] WBC (Bld) [#/Vol] 26.36 10*3/uL High 4.00-10.60 [facility] Comment on above: Order Comment: No: D o not add to previous draw Performed By: #### 5 7307 #### [facility] [address] [place] [address], [facility] Erythrocyte distribution width (RBC) [Ratio] 13.0 % Normal 11.5-15.0 [facility] Comment on above: Order Comment: R/O P ulmonary Edema Performed By: #### 5 0608 ####[facility] [place] [address], [facility] Hematocrit (Bld) [Volume fraction] 47.1 % Normal 39.0-50.0 [facility] Comment on above: Order Comment: R/O P ulmonary Edema Performed By: #### 5 0608 ####[facility] Hemoglobin (Bld) [Mass/Vol] 15.0 g/dL Normal 13.0-17.0 [facility] Comment on above: Order Comment: R/O P ulmonary Edema Performed By: #### 5 0608 ####[facility] MCH (RBC) [Entitic mass] 29.4 pg Normal 27.0-33.0 [facility] Comment on above: Order Comment: R/O P ulmonary Edema Performed By: #### 5 0608 ####[facility] MCHC (RBC) [Mass/Vol] 31.8 g/dL Low 32.0-35.0 [facility] Comment on above: Order Comment: R/O P ulmonary Edema Performed By: #### 5 0608 ####[place] [address] [address] MCV (RBC) [Entitic vol] 92.4 fL Normal 82.0-98.0 [facility] Comment on above: Order Comment: R/O P ulmonary Edema Performed By: #### 5 0608 ####[facility] Nucleated RBC/100 WBC (Bld) [Ratio] 0 % Normal 0-0 [facility] Comment on above: Order Comment: R/O P ulmonary Edema Performed By: #### 5 0608 ####[facility] PLAT CNT 188 10*3/uL Normal 150-400 [facility] Comment on above: Order Comment: R/O P ulmonary Edema Performed By: #### 5 0608 ####[facility] [place] [address], [facility] RBC (Bld) [#/Vol] 5.10 10*6/uL Normal 4.20-5.70 [facility] Comment on above: Order Comment: R/O P ulmonary Edema Performed By: #### 5 0608 ####[facility] [place] [address], [place] WBC (Bld) [#/Vol] 31.20 10*3/uL High 4.00-10.60 [place] Comment on above: Order Comment: R/O P ulmonary Edema Performed By: #### 5 0608 ####[facility] [place] [address], [facility] Erythrocyte distribution width (RBC) [Ratio] 13.0 % Normal 11.5-15.0 [place] Comment on above: Order Comment: If no t done in ED No: Do not add to previous draw Performed By: #### 8 4533, 07085 #### [facility] [address] [place] [address], [place] Hematocrit (Bld) [Volume fraction] 44.2 % Normal 39.0-50.0 [place] Comment on above: Order Comment: If no t done in ED No: Do not add to previous draw Performed By: #### 8 3573, 48138 #### [facility] [address] [place] [address], [place] Hemoglobin (Bld) [Mass/Vol] 14.4 g/dL Normal 13.0-17.0 [facility] Comment on above: Order Comment: If no t done in ED No: Do not add to previous draw Performed By: #### 8 4463, 90845 #### [facility] [address] [place] [address], [place] MCH (RBC) [Entitic mass] 28.8 pg Normal 27.0-33.0 [facility] Comment on above: Order Comment: If no t done in ED No: Do not add to previous draw Performed By: #### 8 5123, 52363 #### [facility] [address] [place] [address], [facility] MCHC (RBC) [Mass/Vol] 32.6 g/dL Normal 32.0-35.0 [facility] Comment on above: Order Comment: If no t done in ED No: Do not add to previous draw Performed By: #### 8 5123, 05005 #### [facility] [address] [place] [address], [facility] MCV (RBC) [Entitic vol] 88.4 fL Normal 82.0-98.0 [facility] Comment on above: Order Comment: If no t done in ED No: Do not add to previous draw Performed By: #### 8 5123, 41122 #### [facility] [address] [place] [address], [facility] Nucleated RBC/100 WBC (Bld) [Ratio] 0 % Normal 0-0 [facility] Comment on above: Order Comment: If no t done in ED No: Do not add to previous draw Performed By: #### 8 5123, 83327 #### [facility] [address] [place] [address], [facility] PLAT CNT 166 10*3/uL Normal 150-400 [facility] Comment on above: Order Comment: If no t done in ED No: Do not add to previous draw Performed By: #### 8 5123, 23771 #### [facility] [address] [place] [address], [facility] RBC (Bld) [#/Vol] 5.00 10*6/uL Normal 4.20-5.70 [facility] Comment on above: Order Comment: If no t done in ED No: Do not add to previous draw Performed By: #### 8 5123, 26341 #### [facility] [address] [place] [address], [facility] WBC (Bld) [#/Vol] 33.13 10*3/uL High 4.00-10.60 [facility] Comment on above: Order Comment: If no t done in ED No: Do not add to previous draw Performed By: #### 8 5123, 20731 #### [facility] [address] [place] [address], [facility] Erythrocyte distribution width (RBC) [Ratio] 13.0 % Normal 11.5-15.0 [facility] Comment on above: Order Comment: If no t done in ED No: Do not add to previous draw Performed By: #### 0 0121, 01654, 89181, 29453, 89650 #### [facility] [address] [place] [address], [facility] Hematocrit (Bld) [Volume fraction] 55.7 % High 39.0-50.0 [facility] Comment on above: Order Comment: If no t done in ED No: Do not add to previous draw Performed By: #### 0 0121, 37036, 59678, 32123, 78185 #### [facility] [address] [place] [address], [facility] Hemoglobin (Bld) [Mass/Vol] 18.2 g/dL High 13.0-17.0 [facility] Comment on above: Order Comment: If no t done in ED No: Do not add to previous draw Performed By: #### 0 0121, 10552, 31781, 09320, 95451 #### [facility] [address] [place] [address], [facility] MCH (RBC) [Entitic mass] 28.6 pg Normal 27.0-33.0 [facility] Comment on above: Order Comment: If no t done in ED No: Do not add to previous draw Performed By: #### 0 0121, 15208, 63709, 60990, 05701 #### [facility] [address] MCHC (RBC) [Mass/Vol] 32.7 g/dL Normal 32.0-35.0 [place] Comment on above: Order Comment: If no t done in ED No: Do not add to previous draw Performed By: #### 0 0121, 92020, 68080, 66264, 26995 #### [facility] [address] MCV (RBC) [Entitic vol] 87.4 fL Normal 82.0-98.0 [place] Comment on above: Order Comment: If no t done in ED No: Do not add to previous draw Performed By: #### 0 0121, 64213, 58870, 20129, 20952 #### [facility] [address] [facility] [address] Nucleated RBC/100 WBC (Bld) [Ratio] 0 % Normal 0-0 [place] Comment on above: Order Comment: If no t done in ED No: Do not add to previous draw Performed By: #### 0 0121, 10295, 32086, 52773, 71056 #### [facility] [address] [facility] PLAT CNT 288 10*3/uL Normal 150-400 [facility] Comment on above: Order Comment: If no t done in ED No: Do not add to previous draw Performed By: #### 0 0121, 67756, 41470, 19244, 99283 #### [facility] [address] [place] [address], [facility] RBC (Bld) [#/Vol] 6.37 10*6/uL High 4.20-5.70 [facility] Comment on above: Order Comment: If no t done in ED No: Do not add to previous draw Performed By: #### 0 0121, 33696, 42774, 89038, 15157 #### [facility] [address] [place] [address], [facility] WBC (Bld) [#/Vol] 11.26 10*3/uL High 4.00-10.60 [place] Comment on above: Order Comment: If no t done in ED No: Do not add to previous draw Performed By: #### 0 0121, 28429, 74180, 57248, 71412 #### [facility] [address] [place] [address], [facility] COMP METABOLIC PANELon 03-19 Albumin [Mass/Vol] 3.8 g/dL Normal 3.5-5.7 [facility] Comment on above: Order Comment: R/O P ulmonary Edema Performed By: #### 0 0121, 55021, 06755 ####[facility] [facility] [place] [address], [facility] ALKALINE PHOSPH 30 IU/L Low 34-104 [facility] Comment on above: Order Comment: R/O P ulmonary Edema Performed By: #### 0 0121, 45036, 62611 ####[facility] [facility] [place] [address], [facility] ALT [Catalytic activity/Vol] 37 U/L Normal 7-52 [facility] Comment on above: Order Comment: R/O P ulmonary Edema Performed By: #### 0 0121, 01158, 12607 ####[facility] [place] [address], [facility] AST [Catalytic activity/Vol] 154 U/L High 13-39 [facility] Comment on above: Order Comment: R/O P ulmonary Edema Performed By: #### 0 0121, 78322, 29799 ####[facility] [place] [address], [facility] Bilirubin [Mass/Vol] 1.9 mg/dL High 0.3-1.0 [facility] Comment on above: Order Comment: R/O P ulmonary Edema Performed By: #### 0 0121, 07746, 12382 ####[facility] [place] [address], [facility] Calcium [Mass/Vol] 8.9 mg/dL Normal 8.6-10.3 [facility] Comment on above: Order Comment: R/O P ulmonary Edema Performed By: #### 0 0121, 94374, 18898 ####[facility] [facility] [place] [address], [facility] Chloride [Moles/Vol] 113 mmol/L High 98-107 [facility] Comment on above: Order Comment: R/O P ulmonary Edema Performed By: #### 0 0121, 72804, 69123 ####[facility] CO2 [Moles/Vol] 13 mmol/L Critically low 21-31 [facility] Comment on above: Order Comment: R/O P ulmonary Edema Result Comment: M-CR ITICAL RESULT(S) REVIEWED, CALLED TO AND READ BACK BY PEDRO CEDENO @194 03.19.19 Performed By: #### 0 0121, 65380, 29745 ####[facility] [facility] [place] [place] [address], [facility] Creatinine [Mass/Vol] 1.11 mg/dL Normal 0.70-1.30 [facility] Comment on above: Order Comment: R/O P ulmonary Edema Performed By: #### 0 0121, 72943, 24634 ####[facility] [place] [address], [facility] GFR/1.73 sq M predicted among blacks MDRD (S/P/Bld) [Vol rate/Area] mL/min/{1.73_m2} Normal >60 [facility] Comment on above: Order Comment: R/O P ulmonary Edema Performed By: #### 0 0121, 87481, 01768 ####[facility] [facility] [place] [place] [address], [facility] GFR/1.73 sq M predicted among non-blacks MDRD (S/P/Bld) [Vol rate/Area] mL/min/{1.73_m2} Normal >60 [facility] Comment on above: Order Comment: R/O P ulmonary Edema Performed By: #### 0 0121, 03671, 29992 ####[facility] [facility] [place] [address], [facility] Glucose [Mass/Vol] 132 mg/dL High 70-100 [facility] Comment on above: Order Comment: R/O P ulmonary Edema Performed By: #### 0 0121, 58832, 48243 ####[facility] [place] [address], [facility] Potassium [Moles/Vol] 4.4 mmol/L Normal 3.5-5.1 [facility] Comment on above: Order Comment: R/O P ulmonary Edema Performed By: #### 0 0121, 91467, 26174 ####[facility] [facility] [place] [address], [facility] Protein [Mass/Vol] 5.6 g/dL Low 6.0-8.3 [facility] Comment on above: Order Comment: R/O P ulmonary Edema Performed By: #### 0 0121, 21156, 03040 ####[facility] [place] [address], [place] Sodium [Moles/Vol] 140 mmol/L Normal 136-145 [facility] Comment on above: Order Comment: R/O P ulmonary Edema Performed By: #### 0 0121, 24683, 06584 ####[facility] [place] [address], [place] Urea nitrogen [Mass/Vol] 18 mg/dL Normal 7-25 [facility] Comment on above: Order Comment: R/O P ulmonary Edema Performed By: #### 0 0121, 60914, 21724 ####[facility] [place] [address], [place] COOXIMETRYon 03-19-2019 COHB 2 % Normal [facility] Comment on above: Order Comment: No: D o not add to previous draw Performed By: #### 5 7307 #### [facility] [address] [place] [address], [place] METHB 1 % Normal [facility] Comment on above: Order Comment: No: D o not add to previous draw Performed By: #### 5 7307 #### [facility] [address] [place] [address], [place] Oxygen saturation in Blood 66.9 % Normal 65.0-75.0 [facility] Comment on above: Order Comment: No: D o not add to previous draw Performed By: #### 5 7307 #### [facility] [address] [place] [address], [place] THB 13.1 g/dL Normal [facility] Comment on above: Order Comment: No: D o not add to previous draw Performed By: #### 5 7307 #### [facility] [address] [place] [address], [place] COHB 2 % Normal [facility] Comment on above: Performed By: #### 7 0207 ####[facility] [place] [address], [place] METHB 1 % Normal [facility] Comment on above: Performed By: #### 7 0207 ####[facility] [place] [address], [place] Oxygen saturation in Blood 59.2 % Low 65.0-75.0 [facility] Comment on above: Performed By: #### 7 0207 ####[facility] [facility] [place] [place] [address], [facility] THB 14.0 g/dL Normal [facility] Comment on above: Performed By: #### 7 0207 ####[facility] [facility] [place] [address], [facility] LACTATE BLOODon 03-19-2019 Lactate [Moles/Vol] 2.6 mmol/L Critically high 0.5-2.2 [facility] Comment on above: Order Comment: No: D o not add to previous draw Result Comment: M-CR ITICAL RESULT(S) REVIEWED, CALLED TO AND READ BACK BY PEDRO MONTANO @2136 03.19.19 Performed By: #### 5 7307 #### [facility] [address] [facility] [place] [address], [facility] MAGNESIUM BLOODon 03-19-2019 Magnesium [Mass/Vol] 2.4 mg/dL Normal 1.9-2.7 [facility] Comment on above: Order Comment: No: D o not add to previous draw Performed By: #### 5 7307 #### [facility] [address] [place] [address], [facility] Magnesium [Mass/Vol] 2.7 mg/dL Normal 1.9-2.7 [facility] Comment on above: Order Comment: R/O P ulmonary Edema Performed By: #### 0 0121, 56158, 02918 ####[facility] [facility] [place] [address], [facility] Magnesium [Mass/Vol] 2.9 mg/dL High 1.9-2.7 [facility] Comment on above: Performed By: #### 8 5123, 28048 #### [facility] [address] [place] [address], [facility] PERFUSION BLOOD PANELon 06-2 0-2019 BASE EXCESS -4.0 mmol/L Low -2.0-3.0 [facility] Comment on above: Performed By: #### 8 5123, 28686 #### [facility] [address] [place] [address], [place] Glucose [Mass/Vol] 143 mg/dL High 70-105 [facility] Comment on above: Performed By: #### 8 5123, 39479 #### [facility] [address] [place] [address], [place] Hematocrit (Bld) [Volume fraction] 39 % Normal 38-51 [facility] Comment on above: Performed By: #### 8 5123, 48464 #### [facility] [address] [place] [address], [place] Hemoglobin (Bld) [Mass/Vol] 13.3 g/dL Normal 12.0-17.0 [place] Comment on above: Performed By: #### 8 5123, 91876 #### [facility] [address] [place] [address], [place] IONIZED CALCIUM 1.58 mmol/L Critically high 1.12-1.32 [place] Comment on above: Performed By: #### 8 5123, 36956 #### [facility] [address] [place] [address], [place] Oxygen (Bld) [Partial pressure] 59.0 mm[Hg] Low 80.0-105.0 [facility] Comment on above: Performed By: #### 8 5123, 44758 #### [facility] [address] [place] [address], [place] PCO2 35.4 mmHg Normal 35.0-45.0 [facility] Comment on above: Performed By: #### 8 5123, 12920 #### [facility] [address] [place] [address], [place] pH (Bld) 7.37 [pH] Normal 7.35-7.45 [facility] Comment on above: Performed By: #### 8 5123, 70393 #### [facility] [address] [place] [address], [facility] Potassium [Moles/Vol] 3.7 mmol/L Normal 3.5-4.9 [place] Comment on above: Performed By: #### 8 5123, 67104 #### [facility] [address] [place] [address], [place] Sodium [Moles/Vol] 144 mmol/L Normal 138-146 [facility] Comment on above: Performed By: #### 8 5123, 26164 #### [facility] [address] [place] [address], [facility] BASE EXCESS -5.0 mmol/L Low -2.0-3.0 [facility] Comment on above: Performed By: #### 8 5123, 78064 #### [facility] [address] [place] [address], [facility] Glucose [Mass/Vol] 158 mg/dL High 70-105 [facility] Comment on above: Performed By: #### 8 5123, 63596 #### [facility] [address] [place] [address], [facility] Hematocrit (Bld) [Volume fraction] 41 % Normal 38-51 [facility] Comment on above: Performed By: #### 8 5123, 22149 #### [facility] [address] [place] [address], [facility] Hemoglobin (Bld) [Mass/Vol] 13.9 g/dL Normal 12.0-17.0 [place] Comment on above: Performed By: #### 8 5123, 62525 #### [facility] [address] [place] [address], [place] IONIZED CALCIUM 1.34 mmol/L High 1.12-1.32 [facility] Comment on above: Performed By: #### 8 5123, 75904 #### [facility] [address] [place] [address], [place] Oxygen (Bld) [Partial pressure] 51.0 mm[Hg] Low 80.0-105.0 [facility] Comment on above: Performed By: #### 8 5123, 96175 #### [facility] [address] [place] [address], [place] PCO2 34.5 mmHg Low 35.0-45.0 [facility] Comment on above: Performed By: #### 8 5123, 68775 #### [facility] [address] [place] [address], [place] pH (Bld) 7.36 [pH] Normal 7.35-7.45 [place] Comment on above: Performed By: #### 8 5123, 72495 #### [facility] [address] [place] [address], [place] Potassium [Moles/Vol] 4.2 mmol/L Normal 3.5-4.9 [place] Comment on above: Performed By: #### 8 5123, 82033 #### [facility] [address] [place] [address], [place] Sodium [Moles/Vol] 142 mmol/L Normal 138-146 [facility] Comment on above: Performed By: #### 8 5123, 97339 #### [facility] [address] [place] [address], [place] BASE EXCESS -1.0 mmol/L Normal -2.0-3.0 [facility] Comment on above: Performed By: #### 8 5123, 33643 #### [facility] [address] [place] [address], [place] Glucose [Mass/Vol] 163 mg/dL High 70-105 [facility] Comment on above: Performed By: #### 8 5123, 22164 #### [facility] [address] [place] [address], [place] Hematocrit (Bld) [Volume fraction] 42 % Normal 38-51 [facility] Comment on above: Performed By: #### 8 5123, 39014 #### [facility] [address] [place] [address], [place] Hemoglobin (Bld) [Mass/Vol] 14.3 g/dL Normal 12.0-17.0 [facility] Comment on above: Performed By: #### 8 5123, 88570 #### [facility] [address] [place] [address], [facility] IONIZED CALCIUM 1.05 mmol/L Low 1.12-1.32 [facility] Comment on above: Performed By: #### 8 5123, 70400 #### [facility] [address] [place] [address], [place] Oxygen (Bld) [Partial pressure] 368.0 mm[Hg] High 80.0-105.0 [facility] Comment on above: Performed By: #### 8 5123, 31910 #### [facility] [address] [place] [address], [place] PCO2 39.7 mmHg Normal 35.0-45.0 [facility] Comment on above: Performed By: #### 8 5123, 37921 #### [facility] [address] [place] [address], [place] pH (Bld) 7.39 [pH] Normal 7.35-7.45 [facility] Comment on above: Performed By: #### 8 5123, 63358 #### [facility] [address] [place] [address], [facility] Potassium [Moles/Vol] 3.9 mmol/L Normal 3.5-4.9 [place] Comment on above: Performed By: #### 8 5123, 89841 #### [facility] [address] [place] [address], [facility] Sodium [Moles/Vol] 145 mmol/L Normal 138-146 [facility] Comment on above: Performed By: #### 8 5123, 36512 #### [facility] [address] [place] [address], [facility] BASE EXCESS -4.0 mmol/L Low -2.0-3.0 [facility] Comment on above: Performed By: #### 8 5123, 94923 #### [facility] [address] [place] [address], [facility] Glucose [Mass/Vol] 169 mg/dL High 70-105 [facility] Comment on above: Performed By: #### 8 5123, 76128 #### [facility] [address] [place] [address], [facility] Hematocrit (Bld) [Volume fraction] 40 % Normal 38-51 [facility] Comment on above: Performed By: #### 8 5123, 23071 #### [facility] [address] [place] [address], [facility] Hemoglobin (Bld) [Mass/Vol] 13.6 g/dL Normal 12.0-17.0 [facility] Comment on above: Performed By: #### 8 5123, 57286 #### [facility] [address] [place] [id number], [facility] IONIZED CALCIUM 1.37 mmol/L High 1.12-1.32 [facility] Comment on above: Performed By: #### 8 5123, 12328 #### [facility] [address] [place] [address], [facility] Oxygen (Bld) [Partial pressure] 301.0 mm[Hg] High 80.0-105.0 [facility] Comment on above: Performed By: #### 8 5123, 83840 #### [facility] [address] [place] [address], [place] PCO2 36.1 mmHg Normal 35.0-45.0 [place] Comment on above: Performed By: #### 8 5123, 29787 #### [facility] [address] [place] [address], [place] pH (Bld) 7.38 [pH] Normal 7.35-7.45 [place] Comment on above: Performed By: #### 8 5123, 12326 #### [facility] [address] [place] [address], [place] Potassium [Moles/Vol] 4.9 mmol/L Normal 3.5-4.9 [place] Comment on above: Performed By: #### 8 5123, 17820 #### [facility] [address] [place] [address], [place] Sodium [Moles/Vol] 137 mmol/L Low 138-146 [facility] Comment on above: Performed By: #### 8 5123, 05941 #### [facility] [address] [place] [address], [place] BASE EXCESS -3.0 mmol/L Low -2.0-3.0 [facility] Comment on above: Performed By: #### [id number], [id number] #### [facility] [address] [place] [address], [place] Glucose [Mass/Vol] 174 mg/dL High 70-105 [facility] Comment on above: Performed By: #### [id number], [id number] #### [facility] [address] [place] [address], [facility] Hematocrit (Bld) [Volume fraction] 45 % Normal 38-51 [facility] Comment on above: Performed By: #### [id number], [id number] #### [facility] [address] [place] [address], [facility] Hemoglobin (Bld) [Mass/Vol] 15.3 g/dL Normal 12.0-17.0 [facility] Comment on above: Performed By: #### 8 512, 09134 #### [facility] [address] [place] [address], [facility] IONIZED CALCIUM 1.06 mmol/L Low 1.12-1.32 [facility] Comment on above: Performed By: #### 8 512, 90790 #### [facility] [address] [place] [address], [facility] Oxygen (Bld) [Partial pressure] 404.0 mm[Hg] High 80.0-105.0 [facility] Comment on above: Performed By: #### 8 512, 04089 #### [facility] [address] [place] [address], [facility] PCO2 42.4 mmHg Normal 35.0-45.0 [facility] Comment on above: Performed By: #### 8 512, 68282 #### [facility] [address] [place] [address], [place] pH (Bld) 7.35 [pH] Normal 7.35-7.45 [facility] Comment on above: Performed By: #### 8 512, 89429 #### [facility] [address] [place] [address], [place] Potassium [Moles/Vol] 4.7 mmol/L Normal 3.5-4.9 [facility] Comment on above: Performed By: #### 8 512, 73549 #### [facility] [address] [place] [address], [place] Sodium [Moles/Vol] 141 mmol/L Normal 138-146 [facility] Comment on above: Performed By: #### 8 5123, 06262 #### [facility] [address] [place] [address], [place] BASE EXCESS -2.0 mmol/L Normal -2.0-3.0 [facility] Comment on above: Performed By: #### 8 5123, 68095 #### [facility] [address] [place] [address], [place] Glucose [Mass/Vol] 184 mg/dL High 70-105 [facility] Comment on above: Performed By: #### 8 5123, 02804 #### [facility] [address] [place] [address], [facility] Hematocrit (Bld) [Volume fraction] 46 % Normal 38-51 [facility] Comment on above: Performed By: #### 8 5123, 27401 #### [facility] [address] [place] [address], [facility] Hemoglobin (Bld) [Mass/Vol] 15.6 g/dL Normal 12.0-17.0 [place] Comment on above: Performed By: #### 8 5123, 32861 #### [facility] [address] [place] [address], [place] IONIZED CALCIUM 1.06 mmol/L Low 1.12-1.32 [facility] Comment on above: Performed By: #### 8 5123, 90634 #### [facility] [address] [place] [address], [place] Oxygen (Bld) [Partial pressure] 374.0 mm[Hg] High 80.0-105.0 [facility] Comment on above: Performed By: #### 8 5123, 51289 #### [facility] [address] [place] [address], [place] PCO2 43.3 mmHg Normal 35.0-45.0 [facility] Comment on above: Performed By: #### 8 5123, 45865 #### [facility] [address] [place] [address], [place] pH (Bld) 7.34 [pH] Low 7.35-7.45 [facility] Comment on above: Performed By: #### 8 5123, 07554 #### [facility] [address] [place] [address], [place] Potassium [Moles/Vol] 4.8 mmol/L Normal 3.5-4.9 [facility] Comment on above: Performed By: #### 8 5123, 21294 #### [facility] [address] [place] [address], [place] Sodium [Moles/Vol] 139 mmol/L Normal 138-146 [facility] Comment on above: Performed By: #### 8 5123, 47231 #### [facility] [address] [place] [address], [place] BASE EXCESS -2.0 mmol/L Normal -2.0-3.0 [facility] Comment on above: Performed By: #### 8 5123, 15230 #### [facility] [address] [place] [address], [place] Glucose [Mass/Vol] 176 mg/dL High 70-105 [facility] Comment on above: Performed By: #### 8 5123, 43607 #### [facility] [address] [place] [address], [place] Hematocrit (Bld) [Volume fraction] 44 % Normal 38-51 [facility] Comment on above: Performed By: #### 8 5123, 61862 #### [facility] [address] [place] [address], [place] Hemoglobin (Bld) [Mass/Vol] 15.0 g/dL Normal 12.0-17.0 [place] Comment on above: Performed By: #### 8 5123, 38279 #### [facility] [address] [place] [address], [place] IONIZED CALCIUM 1.07 mmol/L Low 1.12-1.32 [facility] Comment on above: Performed By: #### 8 5123, 27792 #### [facility] [address] [place] [address], [place] Oxygen (Bld) [Partial pressure] 284.0 mm[Hg] High 80.0-105.0 [facility] Comment on above: Performed By: #### 8 5123, 63531 #### [facility] [address] [place] [address], [place] PCO2 47.5 mmHg High 35.0-45.0 [place] Comment on above: Performed By: #### 8 5123, 14284 #### [facility] [address] [place] [address], [place] pH (Bld) 7.32 [pH] Low 7.35-7.45 [place] Comment on above: Performed By: #### 8 5123, 98439 #### [facility] [address] [place] [address], [place] Potassium [Moles/Vol] 4.8 mmol/L Normal 3.5-4.9 [place] Comment on above: Performed By: #### 8 5123, 46251 #### [facility] [address] [place] [address], [place] Sodium [Moles/Vol] 139 mmol/L Normal 138-146 [facility] Comment on above: Performed By: #### 8 5123, 90272 #### [facility] [address] [place] [address], [facility] BASE EXCESS -2.0 mmol/L Normal -2.0-3.0 [facility] Comment on above: Performed By: #### 0 0121, 71024, 33188, 43131, 18568 #### [facility] [address] [place] [address], [place] Glucose [Mass/Vol] 166 mg/dL High 70-105 [facility] Comment on above: Performed By: #### 0 0121, 23556, 95882, 42853, 72836 #### [facility] [address] [place] [address], [place] Hematocrit (Bld) [Volume fraction] 45 % Normal 38-51 [place] Comment on above: Performed By: #### 0 0121, 64468, 70522, 48318, 18165 #### [facility] [address] [place] [address], [place] Hemoglobin (Bld) [Mass/Vol] 15.3 g/dL Normal 12.0-17.0 [place] Comment on above: Performed By: #### 0 0121, 74971, 76211, 11247, 03851 #### [facility] [address] [place] [address], [facility] IONIZED CALCIUM 1.09 mmol/L Low 1.12-1.32 [facility] Comment on above: Performed By: #### 0 0121, 95346, 07907, 36998, 79606 #### [facility] [address] [place] [address], [facility] Oxygen (Bld) [Partial pressure] 313.0 mm[Hg] High 80.0-105.0 [facility] Comment on above: Performed By: #### 0 0121, 85227, 16445, 50528, 56810 #### [facility] [address] [place] [address], [place] PCO2 47.7 mmHg High 35.0-45.0 [place] Comment on above: Performed By: #### 0 0121, 44507, 55403, 83905, 95784 #### [facility] [address] [place] [address], [place] pH (Bld) 7.32 [pH] Low 7.35-7.45 [facility] Comment on above: Performed By: #### 0 0121, 67065, 85856, 86008, 74347 #### [facility] [address] [place] [address], [place] Potassium [Moles/Vol] 4.4 mmol/L Normal 3.5-4.9 [place] Comment on above: Performed By: #### 0 0121, 20515, 75352, 36609, 15661 #### [facility] [address] [place] [address], [place] Sodium [Moles/Vol] 140 mmol/L Normal 138-146 [facility] Comment on above: Performed By: #### 0 0121, 36138, 17957, 22653, 49472 #### [facility] [address] [place] [address], [place] BASE EXCESS -1.0 mmol/L Normal -2.0-3.0 [facility] Comment on above: Performed By: #### 0 0121, 10295, 33930, 64081, 00079 #### [facility] [address] [place] [address], [place] Glucose [Mass/Vol] 146 mg/dL High 70-105 [facility] Comment on above: Performed By: #### 0 0121, 87450, 30121, 17941, 77038 #### [facility] [address] [place] [address], [facility] Hematocrit (Bld) [Volume fraction] 45 % Normal 38-51 [place] Comment on above: Performed By: #### 0 0121, 72836, 46139, 87925, 70871 #### [facility] [address] [place] [address], [facility] Hemoglobin (Bld) [Mass/Vol] 15.3 g/dL Normal 12.0-17.0 [place] Comment on above: Performed By: #### 0 0121, 14571, 71234, 63472, 73622 #### [facility] [address] [place] [address], [facility] IONIZED CALCIUM 1.06 mmol/L Low 1.12-1.32 [facility] Comment on above: Performed By: #### 0 0121, 44839, 46533, 25358, 39401 #### [facility] [address] [place] [address], [facility] Oxygen (Bld) [Partial pressure] 319.0 mm[Hg] High 80.0-105.0 [facility] Comment on above: Performed By: #### 0 0121, 99564, 38076, 81156, 07301 #### [facility] [address] [place] [address], [facility] PCO2 50.9 mmHg High 35.0-45.0 [facility] Comment on above: Performed By: #### 0 0121, 78133, 48422, 78869, 88301 #### [facility] [address] [place] [address], [place] pH (Bld) 7.32 [pH] Low 7.35-7.45 [facility] Comment on above: Performed By: #### 0 0121, 09281, 84262, 06158, 96087 #### [facility] [address] [place] [address], [facility] Potassium [Moles/Vol] 4.4 mmol/L Normal 3.5-4.9 [place] Comment on above: Performed By: #### 0 0121, 74635, 89191, 40021, 45806 #### [facility] [address] [place] [address], [place] Sodium [Moles/Vol] 138 mmol/L Normal 138-146 [facility] Comment on above: Performed By: #### 0 0121, 12522, 99690, 38579, 52055 #### [facility] [address] [place] [address], [facility] BASE EXCESS 0.0 mmol/L Normal -2.0-3.0 [facility] Comment on above: Performed By: #### 0 0121, 70884, 49200, 05129, 15352 #### [facility] [address] [place] [address], [place] Glucose [Mass/Vol] 116 mg/dL High 70-105 [facility] Comment on above: Performed By: #### 0 0121, 28009, 60471, 24086, 39556 #### [facility] [address] [place] [address], [place] Hematocrit (Bld) [Volume fraction] 43 % Normal 38-51 [facility] Comment on above: Performed By: #### 0 0121, 51083, 28876, 00888, 40655 #### [facility] [address] [place] [address], [place] Hemoglobin (Bld) [Mass/Vol] 14.6 g/dL Normal 12.0-17.0 [facility] Comment on above: Performed By: #### 0 0121, 40686, 56046, 65518, 50568 #### [facility] [address] [place] [address], [place] IONIZED CALCIUM 1.05 mmol/L Low 1.12-1.[address] [facility] [place] [facility] Comment on above: Performed By: #### 0 0121, 13079, 53421, 57216, 70821 #### [facility] [address] [place] [address], [place] Oxygen (Bld) [Partial pressure] 409.0 mm[Hg] High 80.0-105.0 [facility] Comment on above: Performed By: #### 0 0121, 07373, 56908, 32541, 67570 #### [facility] [address] [place] [address], [place] PCO2 44.9 mmHg Normal 35.0-45.0 [facility] Comment on above: Performed By: #### 0 0121, 72728, 24962, 83064, 99685 #### [facility] [address] [place] [address], [place] pH (Bld) 7.36 [pH] Normal 7.35-7.45 [facility] Comment on above: Performed By: #### 0 0121, 68397, 11245, 13452, 33323 #### [facility] [address] [place] [address], [place] Potassium [Moles/Vol] 4.5 mmol/L Normal 3.5-4.9 [place] Comment on above: Performed By: #### 0 0121, 42453, 26794, 02441, 23426 #### [facility] [address] [place] [address], [place] Sodium [Moles/Vol] 138 mmol/L Normal 138-146 [facility] Comment on above: Performed By: #### 0 0121, 92298, 75067, 58411, 49060 #### [facility] [address] [place] [address], [place] BASE EXCESS 0.0 mmol/L Normal -2.0-3.0 [facility] Comment on above: Performed By: #### 0 0121, 47034, 56223, 77543, 61121 #### [facility] [address] [place] [address], [facility] Glucose [Mass/Vol] 101 mg/dL Normal 70-105 [facility] Comment on above: Performed By: #### 0 0121, 78979, 51507, 94712, 72450 #### [facility] [address] [place] [address], [facility] Hematocrit (Bld) [Volume fraction] 44 % Normal 38-51 [place] Comment on above: Performed By: #### 0 0121, 44435, 80195, 98678, 75725 #### [facility] [address] [place] [address], [facility] Hemoglobin (Bld) [Mass/Vol] 15.0 g/dL Normal 12.0-17.0 [place] Comment on above: Performed By: #### 0 0121, 00654, 34480, 10336, 78413 #### [facility] [address] [place] [address], [facility] IONIZED CALCIUM 1.02 mmol/L Low 1.12-1.32 [facility] Comment on above: Performed By: #### 0 0121, 29592, 41671, 67361, 90589 #### [facility] [address] [place] [address], [facility] Oxygen (Bld) [Partial pressure] 516.0 mm[Hg] High 80.0-105.0 [facility] Comment on above: Performed By: #### 0 0121, 93633, 86576, 95305, 60569 #### [facility] [address] [place] [address], [place] PCO2 50.7 mmHg High 35.0-45.0 [place] Comment on above: Performed By: #### 0 0121, 38822, 85976, 40969, 95517 #### [facility] [address] [place] [address], [place] pH (Bld) 7.33 [pH] Low 7.35-7.45 [place] Comment on above: Performed By: #### 0 0121, 03235, 74873, 48262, 90564 #### [facility] [address] [place] [address], [place] Potassium [Moles/Vol] 4.1 mmol/L Normal 3.5-4.9 [place] Comment on above: Performed By: #### 0 0121, 88283, 32777, 11889, 68079 #### [facility] [address] [place] [address], [place] Sodium [Moles/Vol] 137 mmol/L Low 138-146 [facility] Comment on above: Performed By: #### 0 0121, 86881, 68634, 73480, 23815 #### [facility] [address] [place] [address], [place] Hematocrit (Bld) [Volume fraction] 43 % Normal 38-51 [place] Comment on above: Performed By: #### 0 0121, 56385, 52879, 47330, 08382 #### [facility] [address] [place] [place] [address], [place] Hemoglobin (Bld) [Mass/Vol] 14.6 g/dL Normal 12.0-17.0 [facility] Comment on above: Performed By: #### 0 0121, 59286, 24481, 70398, 79384 #### [facility] [address] [place] [address], [place] Oxygen (Bld) [Partial pressure] 51.0 mm[Hg] Normal [facility] Comment on above: Performed By: #### 0 0121, 16470, 22829, 56936, 17365 #### [facility] [address] [place] [address], [facility] BASE EXCESS -4.0 mmol/L Low -2.0-3.0 [facility] Comment on above: Performed By: #### 0 0121, 95267, 72856, 47526, 79087 #### [facility] [address] [place] [address], [place] Glucose [Mass/Vol] 104 mg/dL Normal 70-105 [facility] Comment on above: Performed By: #### 0 0121, 95301, 09690, 03116, 72970 #### [facility] [address] [place] [address], [facility] Hematocrit (Bld) [Volume fraction] 55 % High 38-51 [place] Comment on above: Performed By: #### 0 0121, 20428, 19238, 69697, 39539 #### [facility] [address] [place] [address], [facility] Hemoglobin (Bld) [Mass/Vol] 18.7 g/dL High 12.0-17.0 [place] Comment on above: Performed By: #### 0 0121, 58716, 18425, 60693, 51068 #### [facility] [address] [place] [address], [facility] IONIZED CALCIUM 1.24 mmol/L Normal 1.12-1.32 [facility] Comment on above: Performed By: #### 0 0121, 22073, 40781, 52413, 56669 #### [facility] [address] [place] [address], [facility] Oxygen (Bld) [Partial pressure] 159.0 mm[Hg] High 80.0-105.0 [facility] Comment on above: Performed By: #### 0 0121, 53163, 89525, 08990, 63363 #### [facility] [address] [place] [address], [facility] PCO2 48.7 mmHg High 35.0-45.0 [facility] Comment on above: Performed By: #### 0 0121, 75856, 22162, 04810, 16429 #### [facility] [address] [place] [address], [place] pH (Bld) 7.30 [pH] Low 7.35-7.45 [facility] Comment on above: Performed By: #### 0 0121, 47508, 26668, 85456, 55492 #### [facility] [address] [place] [address], [facility] Potassium [Moles/Vol] 4.1 mmol/L Normal 3.5-4.9 [facility] Comment on above: Performed By: #### 0 0121, 20748, 54029, 77046, 67658 #### [facility] [address] [place] [address], [facility] Sodium [Moles/Vol] 139 mmol/L Normal 138-146 [facility] Comment on above: Performed By: #### 0 0121, 05686, 37063, 20427, 98506 #### [facility] [address] [place] [address], [facility] PHOSPHORUS BLOODon 9 Phosphate [Mass/Vol] 4.3 mg/dL Normal 2.5-5.0 [facility] Comment on above: Order Comment: R/O P ulmonary Edema Performed By: #### 0 0121, 16056, 91881 ####[facility] [facility] [place] [address], [facility] POC GLUCOSE LABon 03-19-2019 Glucose [Mass/Vol] 115 mg/dL High 70-100 [facility] Comment on above: Performed By: #### 5 7307 #### [facility] [address] [facility] [place] [place] [address], [facility] Glucose [Mass/Vol] 145 mg/dL High 70-100 [facility] Comment on above: Performed By: #### 5 7307 #### [facility] [address] [facility] [place] [place] [address], [facility] Glucose [Mass/Vol] 121 mg/dL High 70-100 [facility] Comment on above: Performed By: #### 8 5499 ####[facility] [facility] [place] [place] [address], [facility] Glucose [Mass/Vol] 122 mg/dL High 70-100 [facility] Comment on above: Performed By: #### 8 5499 ####[facility] [place] [address], [facility] PORTABLE CHEST 1 VIEWon 03-01 PORTABLE CHEST 1 VIEW [facility] Department of Radiology [address] [place], [place] [id number] ======== Patient Name: TRACIE CRAIN : 1965 Sex: M Age: Race: NA Pt. Location: [id number] Patient Status: I Ordered Date: 03/19/2019 5:50:00 PM Completed Date: 03/19/2019 06:20 PM Requesting Provider: TIMBO BLACK Attending Provider: TIMBO BLACK Report Copy To: Signs & Symptoms: O2 Desaturation History: Patient history not available Comments: Check E.T. Position Exam: PORTABLE CHEST 1 VIEW ======== PORTABLE CHEST 1 VIEW 03/19/2019 6:20 PM EDT SIGNS AND SYMPTOMS: O2 Desaturation TECHNOLOGIST COMMENTS: check ET tube position QUESTION FOR THE RADIOLOGIST: Check E.T. Position PROTOCOL: AP(PA) view was obtained. COMPARISON: Earlier today at 1651. FINDINGS: Endotracheal tube tip terminates in the upper thoracic trachea in satisfactory position. [place]-Sher catheter, chest tubes and enteric tube appear in satisfactory position. No appreciable pneumothorax. Patchy multifocal airspace disease most like the representing atelectasis appears slightly improved. IMPRESSION: Satisfactory endotracheal tube placement. Remaining support lines and tubes appear in satisfactory position as well as. Improving right basilar predominant atelectasis. Approved by:Pierce Sherman on 03/19/2019 6:53 PM EDT. I, Yenni Osuna, have reviewed the images and report and concur with these findings. Electronically signed by:Yenni Osuna. Transcribed by: [email or web address], User Resident: EMILIA SHERMAN Electronically Signed by: YENNI OSUNA @ 03/20/2019 05:05 PM I personally read this/these film(s) with this resident Normal [facility] Comment on above: Order Comment: << On admission If not done in ED>> No: Do not add to previous draw PORTABLE CHEST 1 VIEW [facility] Department of Radiology [address] [place] [id number] ======== Patient Name: TRACIE CRAIN : 1965 Sex: M Age: Race: NA Pt. Location: [id number] Patient Status: I Ordered Date: 03/19/2019 4:45:00 PM Completed Date: 03/19/2019 05:01 PM Requesting Provider: TIMBO BLACK Attending Provider: TIMBO BLACK Report Copy To: Signs & Symptoms: Post CABG History: Patient history not available Comments: Check E.T. Position Exam: PORTABLE CHEST 1 VIEW ======== PORTABLE CHEST 1 VIEW 03/19/2019 5:01 PM EDT SIGNS AND SYMPTOMS: Post CABG TECHNOLOGIST COMMENTS: Post CABG QUESTION FOR THE RADIOLOGIST: Check E.T. Position PROTOCOL: AP(PA) view was obtained. COMPARISON: Chest radiograph March 19, 2019 at 1534 FINDINGS: Cardiomediastinal silhouette remains unchanged. Trachea is midline. ET tube is 8 cm from the loki. 2 right-sided chest tubes appear in satisfactory position. [place]-Sher catheter with tip projecting over the pulmonary trunk. Nasogastric tube seen coursing below the left hemidiaphragm with tip out of field of view. Valve replacement, unchanged. Unchanged patchy airspace disease, likely representing atelectasis. Unchanged trace bilateral pleural effusions. No acute osseous abnormality. No subdiaphragmatic free air. IMPRESSION: 1. ET tube is in satisfactory position. 2. Unchanged bibasilar pleural parenchymal process. Approved by:Anai Alvarado on 03/20/2019 5:24 AM EDT. I, Divya Collins, have reviewed the images and report and concur with these findings. Electronically signed by:Divya Collins. Transcribed by: [id number], User Resident: ANAI ALVARADO Electronically Signed by: DIVYA COLLINS @ 03/20/2019 11:00 AM I personally read this/these film(s) with this resident Normal [facility] Comment on above: Order Comment: << On admission If not done in ED>> No: Do not add to previous draw PORTABLE CHEST 1 VIEW [facility] Department of Radiology [address] [place] [id number] ======== Patient Name: TRACIE CRAIN : 1965 Sex: M Age: Race: NA Pt. Location: [id number] Patient Status: I Ordered Date: 03/19/2019 3:55:00 PM Completed Date: 03/19/2019 04:06 PM Requesting Provider: TIMBO BLACK Attending Provider: TIMBO BLACK Report Copy To: Signs & Symptoms: INTRA OP chest ,minimally invasive mitral valve repair , replacement with cryo maze. History: Comments: INTRA OP chest ,minimally invasive mitral valve repair , replacement with cryo maze. Exam: PORTABLE CHEST 1 VIEW ======== PORTABLE CHEST 1 VIEW 03/19/2019 4:06 PM EDT SIGNS AND SYMPTOMS: INTRA OP chest ,minimally invasive mitral valve repair , replacement with cryo maze. TECHNOLOGIST COMMENTS: checking for pneumothorax, hemothorax . INTRA OP chest ,minimally invasive mitral valve repair , replacement with cryo maze. QUESTION FOR THE RADIOLOGIST: INTRA OP chest ,minimally invasive mitral valve repair , replacement with cryo maze. PROTOCOL: AP(PA) view was obtained. COMPARISON: March 14, 2019. FINDINGS: 2 right-sided chest tubes are in place. No appreciable pneumothorax. [place]-Sher catheter in place likely terminating in the proximal right main pulmonary artery. Transesophageal echo probe is in place. Mitral valve replacement stent atrial clip noted. Patchy multifocal airspace disease greater on the right and trace bilateral pleural fluid collections are present. Cardiomegaly appears unchanged. No subdiaphragmatic free air is appreciated. IMPRESSION: * 2 right-sided chest tubes appear in satisfactory position. No appreciable pneumothorax. * Patchy airspace disease most likely representing multifocal atelectasis. * [place]-Sher catheter likely terminating in the proximal right main pulmonary artery. * Trace pleural fluid bilaterally. Approved by:Pierce Sherman on 03/19/2019 5:04 PM EDT. I, Yenni Osuna, have reviewed the images and report and concur with these findings. Electronically signed by:Yenni Osuna. Transcribed by: [email or web address], User Resident: EMILIA SHERMAN Electronically Signed by: YENNI OSUAN @ 03/20/2019 05:04 PM I personally read this/these film(s) with this resident Normal [facility] Comment on above: Order Comment: << On admission If not done in ED>> No: Do not add to previous draw PROTHROMBIN TIMEon 9 INR Coag (PPP) [Relative time] 1.60 {INR} High 0.91-1.16 [facility] Comment on above: Order Comment: R/O P ulmonary Edema Result Comment: ACCC P RECOMMENDED INR FOR WARFARIN THERAPY ------- ------- CONDITION INR PROPHYLAXIS OF VENOUS THROMBOSIS 2-3 (HIGH-RISK SURGERY) TREATMENT OF VENOUS THROMBOSIS 2-3 TREATMENT OF PULMONARY EMBOLISM 2-3 PREVENTION OF SYSTEMIC EMBOLISM: 2-3 ACUTE MYOCARDIAL INFARCTION TISSUE HEART VALVES VALVULAR HEART DISEASE ATRIAL FIBRILLATION RECURRENT SYSTEMIC EMBOLISM MECHANICAL HEART VALVE 2.5-3.5 FROM: ORAL ANTICOAGULANTS. MECHANISM OF ACTION, CLINICAL EFFECTIVENESS, AND OPTIMAL THERAPEUTIC RANGE. CHEST 1995;108:231S-246S. Performed By: #### 5 6101 ####[facility] [place] [address], [facility] PT Coag (PPP) [Time] 19.1 s High 12.3-14.8 [facility] Comment on above: Order Comment: R/O P ulmonary Edema Result Comment: ALL RESULTS MUST BE INTERPRETED WITH RESPECT TO BLOOD DRAWING ARTIFACT OR DILUTION ERROR OF ANTICOAGULANT AT THE TIME OF SAMPLING. Performed By: #### 5 6101 ####[facility] [place] [address], [facility] INR Coag (PPP) [Relative time] 1.68 {INR} High 0.91-1.16 [facility] Comment on above: Order Comment: If no t done in ED No: Do not add to previous draw Result Comment: ACCC P RECOMMENDED INR FOR WARFARIN THERAPY ------- ------- CONDITION INR PROPHYLAXIS OF VENOUS THROMBOSIS 2-3 (HIGH-RISK SURGERY) TREATMENT OF VENOUS THROMBOSIS 2-3 TREATMENT OF PULMONARY EMBOLISM 2-3 PREVENTION OF SYSTEMIC EMBOLISM: 2-3 ACUTE MYOCARDIAL INFARCTION TISSUE HEART VALVES VALVULAR HEART DISEASE ATRIAL FIBRILLATION RECURRENT SYSTEMIC EMBOLISM MECHANICAL HEART VALVE 2.5-3.5 FROM: ORAL ANTICOAGULANTS. MECHANISM OF ACTION, CLINICAL EFFECTIVENESS, AND OPTIMAL THERAPEUTIC RANGE. CHEST 1995;108:231S-246S. Performed By: #### 8 9193, 33725 #### [facility] [address] [place] [address], [facility] PT Coag (PPP) [Time] 19.9 s High 12.3-14.8 [facility] Comment on above: Order Comment: If no t done in ED No: Do not add to previous draw Result Comment: ALL RESULTS MUST BE INTERPRETED WITH RESPECT TO BLOOD DRAWING ARTIFACT OR DILUTION ERROR OF ANTICOAGULANT AT THE TIME OF SAMPLING. Performed By: #### 8 5636, 88590 #### [facility] [address] INR Coag (PPP) [Relative time] 1.02 {INR} Normal 0.91-1.16 [place] Comment on above: Order Comment: If no t done in ED No: Do not add to previous draw Result Comment: ACCC P RECOMMENDED INR FOR WARFARIN THERAPY ------- ------- CONDITION INR PROPHYLAXIS OF VENOUS THROMBOSIS 2-3 (HIGH-RISK SURGERY) TREATMENT OF VENOUS THROMBOSIS 2-3 TREATMENT OF PULMONARY EMBOLISM 2-3 PREVENTION OF SYSTEMIC EMBOLISM: 2-3 ACUTE MYOCARDIAL INFARCTION TISSUE HEART VALVES VALVULAR HEART DISEASE ATRIAL FIBRILLATION RECURRENT SYSTEMIC EMBOLISM MECHANICAL HEART VALVE 2.5-3.5 FROM: ORAL ANTICOAGULANTS. MECHANISM OF ACTION, CLINICAL EFFECTIVENESS, AND OPTIMAL THERAPEUTIC RANGE. CHEST 1995;108:231S-246S. Performed By: #### 0 0121, 48959, 17645, 61398, 90760 #### [facility] [address] [facility] [address] PT Coag (PPP) [Time] 13.4 s Normal 12.3-14.8 [place] Comment on above: Order Comment: If no t done in ED No: Do not add to previous draw Result Comment: ALL RESULTS MUST BE INTERPRETED WITH RESPECT TO BLOOD DRAWING ARTIFACT OR DILUTION ERROR OF ANTICOAGULANT AT THE TIME OF SAMPLING. Performed By: #### 0 0121, 13237, 49385, 16845, 38602 #### [facility] [address] [place] [address], [facility] RBC'S 2 UNITSon 03-19-2019 CROSSMATCH INTERP 1 COMP Normal [facility] Comment on above: Performed By: #### 0 0121, 81849, 71254, 69068, 90330 #### [facility] [address] [place] [address], [facility] CROSSMATCH INTERP 2 COMP Normal [facility] Comment on above: Performed By: #### 0 0121, 61003, 33833, 85361, 65692 #### [facility] [address] [place] [address], [facility] PRODUCT CODE 1 E0332 Normal [facility] Comment on above: Performed By: #### 0 0121, 15951, 81716, 54273, 75653 #### [facility] [address] [place] [address], [facility] PRODUCT CODE 2 E0336 Normal [facility] Comment on above: Performed By: #### 0 0121, 86740, 97654, 79939, 85016 #### [facility] [address] [place] [address], [facility] PRODUCT STATUS 1 RE Normal [facility] Comment on above: Result Comment: Resu lt changed by IF on 03/19/2019 08:33. The previous value was XM. Result changed by IF on 03/19/2019 16:19. The previous value was IS. Result changed by IF on 03/20/2019 09:43. The previous value was XM. Result changed by IF on 03/20/2019 09:46. The previous value was XX. Performed By: #### 0 0121, 40453, 72585, 46217, 44481 #### [facility] [address] [place] [address], [facility] PRODUCT STATUS 2 RE Normal [facility] Comment on above: Result Comment: Resu lt changed by IF on 03/19/2019 08:33. The previous value was XM. Result changed by IF on 03/19/2019 16:19. The previous value was IS. Result changed by IF on 03/20/2019 09:43. The previous value was XM. Result changed by IF on 03/20/2019 11:11. The previous value was XX. Performed By: #### 0 0121, 12007, 89205, 30418, 14382 #### [facility] [address] [place] [address], [facility] UNIT ABO 1 O Normal [facility] Comment on above: Performed By: #### 0 0121, 94548, 76210, 30968, 45847 #### [facility] [address] [place] [address], [facility] UNIT ABO 2 O Normal [facility] Comment on above: Performed By: #### 0 0121, 40258, 99878, 84978, 24063 #### [facility] [address] [place] [address], [facility] UNIT ID 1 [id number] Normal [facility] Comment on above: Performed By: #### 0 0121, 49851, 68146, 72346, 39773 #### [facility] [address] [place] [address], [facility] UNIT ID 2 [id number] Normal [facility] Comment on above: Performed By: #### 0 0121, 72114, 21438, 70033, 03014 #### [facility] [address] [place] [address], [place] UNIT RH 1 Negative Normal [facility] Comment on above: Performed By: #### 0 0121, 55005, 26452, 00127, 56881 #### [facility] [address] [place] [address], [place] UNIT RH 2 Negative Normal [facility] Comment on above: Performed By: #### 0 0121, 75681, 96356, 58351, 68858 #### [facility] [address] *MRSA/MSSA DNA NASALon 03-18 *MRSA/MSSA DNA NASAL Clinical Report: (D ) Specimen: NASAL SWAB Collected: 03/18/2019 17:05 Status: Final Last Updated: 03/19/2019 12:12 MSSA DNA (Final) Negative MRSA DNA (Final) Negative Normal [facility] Comment on above: Performed By: #### 8 5123, 57290 #### [facility] [address] APTTon 03-18-2019 aPTT Coag (Bld) [Time] 58.1 s High 25.0-35.0 [facility] Comment on above: Order Comment: << ON ADMISSION If not done in ED>> No: Do not add to previous draw Result Comment: ALL RESULTS MUST BE INTERPRETED WITH RESPECT TO BLOOD DRAWING ARTIFACT OR DILUTION ERROR OF ANTICOAGULANT AT THE TIME OF SAMPLING. THE APTT SHOULD NOT BE USED TO MONITOR UNFRACTIONATED HEPARIN THERAPY, THIS LABORATORY NO LONGER HAS AN ESTABLISHED THERAPEUTIC RANGE BASED ON THE APTT. IT IS RECOMMENDED THAT THE UFH - HEPARIN ASSAY (ANTI-XA ACTIVITY) BE USED FOR THIS PURPOSE. CLINICAL SIGNIFICANCE OF THE PTT RESULT IS QUESTIONABLE IN THE PRESENCE OF HEPARIN. Performed By: #### 0 0121, 92916, 67506, 30887, 94157 #### [facility] [address] aPTT Coag (Bld) [Time] 67.7 s High 25.0-35.0 [facility] Comment on above: Order Comment: << ON ADMISSION If not done in ED>> No: Do not add to previous draw Result Comment: ALL RESULTS MUST BE INTERPRETED WITH RESPECT TO BLOOD DRAWING ARTIFACT OR DILUTION ERROR OF ANTICOAGULANT AT THE TIME OF SAMPLING. THE APTT SHOULD NOT BE USED TO MONITOR UNFRACTIONATED HEPARIN THERAPY, THIS LABORATORY NO LONGER HAS AN ESTABLISHED THERAPEUTIC RANGE BASED ON THE APTT. IT IS RECOMMENDED THAT THE UFH - HEPARIN ASSAY (ANTI-XA ACTIVITY) BE USED FOR THIS PURPOSE. CLINICAL SIGNIFICANCE OF THE PTT RESULT IS QUESTIONABLE IN THE PRESENCE OF HEPARIN. Performed By: #### 0 0121, 96237, 67398, 29543, 32056 #### [facility] [address] [place] [address], [facility] aPTT Coag (Bld) [Time] 74.8 s Critically high 25.0-35.0 [place] Comment on above: Order Comment: << ON ADMISSION If not done in ED>> No: Do not add to previous draw Result Comment: ALL RESULTS MUST BE INTERPRETED WITH RESPECT TO BLOOD DRAWING ARTIFACT OR DILUTION ERROR OF ANTICOAGULANT AT THE TIME OF SAMPLING. THE APTT SHOULD NOT BE USED TO MONITOR UNFRACTIONATED HEPARIN THERAPY, THIS LABORATORY NO LONGER HAS AN ESTABLISHED THERAPEUTIC RANGE BASED ON THE APTT. IT IS RECOMMENDED THAT THE UFH - HEPARIN ASSAY (ANTI-XA ACTIVITY) BE USED FOR THIS PURPOSE. CLINICAL SIGNIFICANCE OF THE PTT RESULT IS QUESTIONABLE IN THE PRESENCE OF HEPARIN. RESULTS CHECKED AND CALLED. ACCURATELY READ BACK BY CAMILA ARRINGTON RN AT 0609. Performed By: #### 0 0121, 72415, 70822, 05869, 49041 #### [facility] [address] [facility] [address] BASIC METABOLIC PANELon 06- Calcium [Mass/Vol] 9.2 mg/dL Normal 8.6-10.3 [facility] Comment on above: Order Comment: << ON ADMISSION If not done in ED>> No: Do not add to previous draw Performed By: #### 0 0121, 54741, 66726, 88150, 02247 #### [facility] [address] [place] [address], [facility] Chloride [Moles/Vol] 105 mmol/L Normal 98-107 [facility] Comment on above: Order Comment: << ON ADMISSION If not done in ED>> No: Do not add to previous draw Performed By: #### 0 0121, 88501, 24381, 69472, 40827 #### [facility] [address] [place] [address], [facility] CO2 [Moles/Vol] 27 mmol/L Normal 21-31 [facility] Comment on above: Order Comment: << ON ADMISSION If not done in ED>> No: Do not add to previous draw Performed By: #### 0 0121, 28227, 00766, 96526, 51946 #### [facility] [address] [place] [address], [facility] Creatinine [Mass/Vol] 1.11 mg/dL Normal 0.70-1.30 [place] Comment on above: Order Comment: << ON ADMISSION If not done in ED>> No: Do not add to previous draw Performed By: #### 0 0121, 36653, 72195, 97883, 55099 #### [facility] [address] [place] [address], [facility] GFR/1.73 sq M predicted among blacks MDRD (S/P/Bld) [Vol rate/Area] mL/min/{1.73_m2} Normal >60 [place] Comment on above: Order Comment: << ON ADMISSION If not done in ED>> No: Do not add to previous draw Performed By: #### 0 0121, 77491, 06946, 71036, 39504 #### [facility] [address] [place] [address], [facility] GFR/1.73 sq M predicted among non-blacks MDRD (S/P/Bld) [Vol rate/Area] mL/min/{1.73_m2} Normal >60 [place] Comment on above: Order Comment: << ON ADMISSION If not done in ED>> No: Do not add to previous draw Performed By: #### 0 0121, 83135, 85670, 09893, 96268 #### [facility] [address] [place] [address], [place] Glucose [Mass/Vol] 101 mg/dL High 70-100 [facility] Comment on above: Order Comment: << ON ADMISSION If not done in ED>> No: Do not add to previous draw Performed By: #### 0 0121, 65142, 81381, 98238, 68312 #### [facility] [address] [place] [address], [facility] Potassium [Moles/Vol] 4.2 mmol/L Normal 3.5-5.1 [facility] Comment on above: Order Comment: << ON ADMISSION If not done in ED>> No: Do not add to previous draw Performed By: #### 0 0121, 68189, 53932, 10120, 31299 #### [facility] [address] [place] [id number], [facility] Sodium [Moles/Vol] 136 mmol/L Normal 136-145 [facility] Comment on above: Order Comment: << ON ADMISSION If not done in ED>> No: Do not add to previous draw Performed By: #### 0 0121, 20430, 15458, 47551, 18018 #### [facility] [address] [place] [address], [facility] Urea nitrogen [Mass/Vol] 15 mg/dL Normal 7-25 [facility] Comment on above: Order Comment: << ON ADMISSION If not done in ED>> No: Do not add to previous draw Performed By: #### 0 0121, 61631, 75096, 21469, 93848 #### [facility] [address] CBC COMPLETE BLOOD COUNTon 0 - Erythrocyte distribution width (RBC) [Ratio] 12.8 % Normal 11.5-15.0 [facility] Comment on above: Order Comment: << ON ADMISSION If not done in ED>> No: Do not add to previous draw Performed By: #### 0 0121, 95804, 60204, 04347, 45082 #### [facility] [address] [place] [address], [facility] Hematocrit (Bld) [Volume fraction] 55.1 % High 39.0-50.0 [facility] Comment on above: Order Comment: << ON ADMISSION If not done in ED>> No: Do not add to previous draw Performed By: #### 0 0121, 68884, 38779, 67906, 70479 #### [facility] [address] [place] [address], [facility] Hemoglobin (Bld) [Mass/Vol] 17.5 g/dL High 13.0-17.0 [facility] Comment on above: Order Comment: << ON ADMISSION If not done in ED>> No: Do not add to previous draw Performed By: #### 0 0121, 03546, 83524, 14153, 95987 #### [facility] [address] [place] [address], [facility] MCH (RBC) [Entitic mass] 28.6 pg Normal 27.0-33.0 [facility] Comment on above: Order Comment: << ON ADMISSION If not done in ED>> No: Do not add to previous draw Performed By: #### 0 0121, 48417, 77220, 38993, 24208 #### [facility] [address] MCHC (RBC) [Mass/Vol] 31.8 g/dL Low 32.0-35.0 [facility] Comment on above: Order Comment: << ON ADMISSION If not done in ED>> No: Do not add to previous draw Performed By: #### 0 0121, 86108, 99741, 05033, 86973 #### [facility] [address] [facility] [place] [address], [facility] MCV (RBC) [Entitic vol] 90.0 fL Normal 82.0-98.0 [facility] Comment on above: Order Comment: << ON ADMISSION If not done in ED>> No: Do not add to previous draw Performed By: #### 0 0121, 04193, 81128, 82688, 02563 #### [facility] [address] [place] [address], [facility] Nucleated RBC/100 WBC (Bld) [Ratio] 0 % Normal 0-0 [facility] Comment on above: Order Comment: << ON ADMISSION If not done in ED>> No: Do not add to previous draw Performed By: #### 0 0121, 25997, 97013, 63175, 07799 #### [facility] [address] [place] [address], [facility] PLAT CNT 286 10*3/uL Normal 150-400 [facility] Comment on above: Order Comment: << ON ADMISSION If not done in ED>> No: Do not add to previous draw Performed By: #### 0 0121, 02043, 94464, 01149, 95436 #### [facility] [address] [place] [address], [facility] RBC (Bld) [#/Vol] 6.12 10*6/uL High 4.20-5.70 [facility] Comment on above: Order Comment: << ON ADMISSION If not done in ED>> No: Do not add to previous draw Performed By: #### 0 0121, 77044, 78931, 56706, 33535 #### [facility] [address] [place] [address], [facility] WBC (Bld) [#/Vol] 9.33 10*3/uL Normal 4.00-10.60 [facility] Comment on above: Order Comment: << ON ADMISSION If not done in ED>> No: Do not add to previous draw Performed By: #### 0 0121, 02669, 71786, 18860, 73129 #### [facility] [address] [place] [address], [facility] MAGNESIUM BLOODon 03-18-2019 Magnesium [Mass/Vol] 2.4 mg/dL Normal 1.9-2.7 [facility] Comment on above: Performed By: #### 0 0121, 89861, 27626, 22125, 57183 #### [facility] [address] [place] [address], [facility] TYPE AND SCREENon 03-18-2019 ABO INTERPRETATION O Normal [facility] Comment on above: Performed By: #### 0 0121, 43410, 10196, 68672, 33324 #### [facility] [address] [place] [address], [facility] RH INTERPRETATION Negative Normal [facility] Comment on above: Performed By: #### 0 0121, 81999, 24154, 24083, 30744 #### [facility] [address] [place] [address], [facility] UFH HEPARIN ASSAYon 03-18-20 19 UNFRACTIONATED HEPARIN 0.19 IU/mL Low 0.30-0.70 [place] Comment on above: Order Comment: If no t done in ED No: Do not add to previous draw Result Comment: [place]ef[place] roxaban and Apixaban will interfere with the anti Xa assay used to monitor UFH and LMWH. Performed By: #### 0 0121, 43344, 66059, 11314, 86427 #### [facility] [address] [place] [address], [facility] UNFRACTIONATED HEPARIN 0.29 IU/mL Low 0.30-0.70 [place] Comment on above: Order Comment: << ON ADMISSION If not done in ED>> No: Do not add to previous draw Result Comment: [place] roxaban and Apixaban will interfere with the anti Xa assay used to monitor UFH and LMWH. Performed By: #### 0 0121, 95928, 96155, 28971, 17067 #### [facility] [address] [place] [address], [facility] UNFRACTIONATED HEPARIN 0.25 IU/mL Low 0.30-0.70 [place] Comment on above: Result Comment: [place] roxaban and Apixaban will interfere with the anti Xa assay used to monitor UFH and LMWH. Performed By: #### 0 0121, 37702, 36966, 20258, 75371 #### [facility] [address] [place] [address], [place] URINALYSISon 03-18-2019 Appearance (U) CLEAR Normal CLEAR [facility] Comment on above: Order Comment: If no t done in ED No: Do not add to previous draw Performed By: #### 0 0121, 56915, 10787, 93733, 71660 #### [facility] [address] [place] [address], [place] Bilirubin [Mass/Vol] Negative Normal NEGATIVE [facility] Comment on above: Order Comment: If no t done in ED No: Do not add to previous draw Performed By: #### 0 0121, 87597, 65640, 72465, 57249 #### [facility] [address] [place] [address], [place] BLOOD Negative Normal NEGATIVE [facility] Comment on above: Order Comment: If no t done in ED No: Do not add to previous draw Performed By: #### 0 0121, 13075, 12270, 14827, 01851 #### [facility] [address] [place] [address], [place] Color (U) YELLOW Normal YELLOW [facility] Comment on above: Order Comment: If no t done in ED No: Do not add to previous draw Performed By: #### 0 0121, 76664, 95747, 27987, 56480 #### [facility] [address] [place] [address], [place] Glucose [Mass/Vol] Negative Normal NEGATIVE [facility] Comment on above: Order Comment: If no t done in ED No: Do not add to previous draw Performed By: #### 0 0121, 16927, 85629, 32437, 93204 #### [facility] [address] [place] [address], [place] KETONE Negative Normal NEGATIVE [facility] Comment on above: Order Comment: If no t done in ED No: Do not add to previous draw Performed By: #### 0 0121, 70933, 04646, 84249, 62208 #### [facility] [address] [place] [address], [place] LEUK RADHA Negative Normal NEGATIVE [facility] Comment on above: Order Comment: If no t done in ED No: Do not add to previous draw Performed By: #### 0 0121, 14565, 99228, 66075, 66263 #### [facility] [address] [place] [address], [place] MICRO NOT DONE negative chemical reactions unless requested in original order Normal [facility] Comment on above: Order Comment: If no t done in ED No: Do not add to previous draw Performed By: #### 0 0121, 49810, 60179, 30348, 72259 #### [facility] [address] [place] [address], [place] Nitrite Ql (U) Negative Normal NEGATIVE [facility] Comment on above: Order Comment: If no t done in ED No: Do not add to previous draw Performed By: #### 0 0121, 86380, 16967, 53205, 40531 #### [facility] [address] [facility] [place] [address], [facility] pH (Bld) 6.0 Normal 5.0-8.0 [facility] Comment on above: Order Comment: If no t done in ED No: Do not add to previous draw Performed By: #### 0 0121, 78164, 81261, 05279, 14782 #### [facility] [address] [place] [address], [place] Protein (U) [Mass/Vol] Negative Normal NEGATIVE [facility] Comment on above: Order Comment: If no t done in ED No: Do not add to previous draw Performed By: #### 0 0121, 26423, 77212, 69347, 86204 #### [facility] [address] [place] [address], [place] SPEC GRAV 1.017 Normal 1.015-1.020 [facility] Comment on above: Order Comment: If no t done in ED No: Do not add to previous draw Performed By: #### 0 0121, 71921, 02368, 73358, 99271 #### [facility] [address] [place] [address], [facility] APTTon 03-17-2019 aPTT Coag (Bld) [Time] 67.3 s High 25.0-35.0 [place] Comment on above: Order Comment: No: D o not add to previous draw Result Comment: ALL RESULTS MUST BE INTERPRETED WITH RESPECT TO BLOOD DRAWING ARTIFACT OR DILUTION ERROR OF ANTICOAGULANT AT THE TIME OF SAMPLING. THE APTT SHOULD NOT BE USED TO MONITOR UNFRACTIONATED HEPARIN THERAPY, THIS LABORATORY NO LONGER HAS AN ESTABLISHED THERAPEUTIC RANGE BASED ON THE APTT. IT IS RECOMMENDED THAT THE UFH - HEPARIN ASSAY (ANTI-XA ACTIVITY) BE USED FOR THIS PURPOSE. Performed By: #### 0 0121, 88539, 38767, 51926, 57793 #### [facility] [address] [place] [address], [facility] BASIC METABOLIC PANELon 02-28 Calcium [Mass/Vol] 9.1 mg/dL Normal 8.6-10.3 [facility] Comment on above: Order Comment: No: D o not add to previous draw Performed By: #### 0 0121, 78484, 41149, 68002, 12818 #### [facility] [address] [place] [address], [facility] Chloride [Moles/Vol] 101 mmol/L Normal 98-107 [facility] Comment on above: Order Comment: No: D o not add to previous draw Performed By: #### 0 0121, 71250, 29349, 57889, 35246 #### [facility] [address] [place] [address], [place] CO2 [Moles/Vol] 24 mmol/L Normal 21-31 [facility] Comment on above: Order Comment: No: D o not add to previous draw Performed By: #### 0 0121, 84987, 61746, 73105, 21660 #### [facility] [address] [place] [address], [place] Creatinine [Mass/Vol] 1.02 mg/dL Normal 0.70-1.30 [place] Comment on above: Order Comment: No: D o not add to previous draw Performed By: #### 0 0121, 62758, 16225, 38442, 54643 #### [facility] [address] [place] [address], [place] GFR/1.73 sq M predicted among blacks MDRD (S/P/Bld) [Vol rate/Area] mL/min/{1.73_m2} Normal >60 [facility] Comment on above: Order Comment: No: D o not add to previous draw Performed By: #### 0 0121, 33382, 31982, 80649, 15796 #### [facility] [address] [place] [address], [place] GFR/1.73 sq M predicted among non-blacks MDRD (S/P/Bld) [Vol rate/Area] mL/min/{1.73_m2} Normal >60 [facility] Comment on above: Order Comment: No: D o not add to previous draw Performed By: #### 0 0121, 85464, 80794, 96594, 91237 #### [facility] [address] [place] [address], [place] Glucose [Mass/Vol] 102 mg/dL High 70-100 [facility] Comment on above: Order Comment: No: D o not add to previous draw Performed By: #### 0 0121, 51111, 84279, 18650, 43133 #### [facility] [address] [place] [address], [place] Potassium [Moles/Vol] 3.7 mmol/L Normal 3.5-5.1 [facility] Comment on above: Order Comment: No: D o not add to previous draw Performed By: #### 0 0121, 73131, 22028, 18776, 74320 #### [facility] [address] [place] [address], [facility] Sodium [Moles/Vol] 135 mmol/L Low 136-145 [facility] Comment on above: Order Comment: No: D o not add to previous draw Performed By: #### 0 0121, 95805, 32676, 95626, 85590 #### [facility] [address] [place] [address], [facility] Urea nitrogen [Mass/Vol] 18 mg/dL Normal 7-25 [facility] Comment on above: Order Comment: No: D o not add to previous draw Performed By: #### 0 0121, 89066, 10115, 29619, 08497 #### [facility] [address] [place] [id number], [facility] CBC COMPLETE BLOOD COUNTon 0 - Erythrocyte distribution width (RBC) [Ratio] 12.9 % Normal 11.5-15.0 [place] Comment on above: Order Comment: No: D o not add to previous draw Performed By: #### 0 0121, 39446, 54631, 63585, 39423 #### [facility] [address] [place] [address], [facility] Hematocrit (Bld) [Volume fraction] 50.6 % High 39.0-50.0 [facility] Comment on above: Order Comment: No: D o not add to previous draw Performed By: #### 0 0121, 26730, 84125, 31515, 28335 #### [facility] [address] [place] [address], [facility] Hemoglobin (Bld) [Mass/Vol] 16.1 g/dL Normal 13.0-17.0 [facility] Comment on above: Order Comment: No: D o not add to previous draw Performed By: #### 0 0121, 54259, 89048, 45010, 72572 #### [facility] [address] [place] [address], [facility] MCH (RBC) [Entitic mass] 28.6 pg Normal 27.0-33.0 [facility] Comment on above: Order Comment: No: D o not add to previous draw Performed By: #### 0 0121, 11297, 23023, 97000, 04769 #### [facility] [address] [place] [address], [facility] MCHC (RBC) [Mass/Vol] 31.8 g/dL Low 32.0-35.0 [facility] Comment on above: Order Comment: No: D o not add to previous draw Performed By: #### 0 0121, 39236, 74806, 80059, 97274 #### [facility] [address] [facility] MCV (RBC) [Entitic vol] 90.0 fL Normal 82.0-98.0 [facility] Comment on above: Order Comment: No: D o not add to previous draw Performed By: #### 0 0121, 47146, 50654, 26475, 37967 #### [facility] [address] Nucleated RBC/100 WBC (Bld) [Ratio] 0 % Normal 0-0 [facility] Comment on above: Order Comment: No: D o not add to previous draw Performed By: #### 0 0121, 79190, 12199, 21855, 42229 #### [facility] [address] [facility] [place] [address], [facility] PLAT CNT 274 10*3/uL Normal 150-400 [facility] Comment on above: Order Comment: No: D o not add to previous draw Performed By: #### 0 0121, 02215, 94896, 80055, 33297 #### [facility] [address] RBC (Bld) [#/Vol] 5.62 10*6/uL Normal 4.20-5.70 [facility] Comment on above: Order Comment: No: D o not add to previous draw Performed By: #### 0 0121, 32514, 82167, 51637, 59569 #### [facility] [address] [place] [address], [facility] WBC (Bld) [#/Vol] 9.65 10*3/uL Normal 4.00-10.60 [facility] Comment on above: Order Comment: No: D o not add to previous draw Performed By: #### 0 0121, 22737, 30881, 73761, 31031 #### [facility] [address] Cardiovascular Lab Reporton 03-17-2019 Cardiovascular Lab Report [facility] #: [id number] Department of Physician: Madan Parsons M.D. Division of Service Date: 03/16/2019 Cardiology Birthdate: 1965 Adult Cardiovascular Room #: 3AB [id number] [place] [address] Cardiovascular Laboratory Report CLINICAL PRESENTATION: The patient is a 53-year-old male, who was transferred from the [facility], due to his symptoms of shortness of breath and diagnosis of atrial fibrillation with RVR and acute congestive heart failure. This morning, he underwent a GERMAN and cardioversion. He now presents for right heart catheterization and coronary angiogram for congestive heart failure workup. FINAL IMPRESSION: 1. Normal coronary arteries. 2. Elevated filling pressures consistent with decompensated congestive heart failure. 3. Borderline cardiac output and cardiac index. 4. Moderate mitral regurgitation. PLAN: 1. Optimal medical therapy for congestive heart failure including beta-fredy, BENJA-I/ARB/ARNI, and aldosterone antagonist as tolerated. 2. Medical therapy for paroxysmal atrial fibrillation as indicated. 3. Further evaluation for mitral regurgitation as needed. PROCEDURES: Coronary angiogram, right heart catheterization, left heart catheterization with left ventriculogram, ultrasound guidance for vascular access, conscious sedation 31 minutes. INDICATIONS: Acute CHF NYHA class 4, atrial fibrillation. DESCRIPTION OF PROCEDURE: The patient was brought to cardiac catheterization lab in a fasting state. Informed written consent was obtained. He was prepped and draped in usual sterile fashion, right neck and right upper right wrist time-out was performed. He was given Versed and fentanyl for sedation. A 1% lidocaine was infiltrated over the right internal jugular vein. Using ultrasound guidance and a micropuncture access technique, a 6-Cambodian sheath was placed in the right internal jugular vein. A Clark catheter was then advanced under fluoroscopic hemodynamic monitor to the right atrium. Pressure was obtained in the right atrium, right ventricle, pulmonary artery, pulmonary capillary wedge position. Oxygen saturations drawn from the pulmonary artery and the Nanci cardiac output and cardiac index were calculated. The Clark catheter was then removed. Next, a 6-Cambodian Terumo Glidesheath slender was placed in the right radial artery. The radial anti-vasospasm cocktail of nitroglycerin 100 mcg was administered through the sheath. All catheter exchanges were made over the Magic Torque guidewire. A 5-Cambodian [place] catheter was used to engage the left main coronary artery and the right coronary artery. Coronary angiogram was performed in multiple orthogonal views using hand injection of contrast. At the end of the procedure, all catheters and wires were removed from the body. The right radial sheath was removed and a TR band was applied to obtain hemostasis. The right internal jugular venous sheath was removed and manual pressure was applied to obtain hemostasis. There were no apparent complications. TOTAL CONTRAST: 80 mL. TOTAL CONSCIOUS SEDATION TIME: 31 minute. TOTAL FLUOROSCOPY TIME: 4 minutes 50 seconds, 0.6 Gy. FINDINGS: Hemodynamics: 1. RA mean 14 mmHg. 2. RV 34/14. 3. PA 36/26 (mean 29). 4. Pulmonary capillary wedge pressure mean 27 mmHg. 5. Aortic pressure 95/71 (MAP 83). 6. LV 93/LVEDP 16 mmHg. 7. Nanci cardiac output 5.69 L/minute. 8. Nanci cardiac index 2.25 L/minute per meter squared. 9. Oxygen saturations, PA sat 68%, AO sat 93%. LEFT VENTRICULOGRAM: Left ventriculogram shows mildly reduced LV systolic function with EF of 40% to 45%. There is 2+ mitral regurgitation (moderate MR). CORONARY ANGIOGRAM: 1. Left main coronary artery: Patent. 2. Left anterior descending coronary artery: Patent. 3. Left circumflex coronary artery: Patent. 4. Right coronary artery: Patent. 5. The RCA is dominant. Electronically Signed by: Krys Day M.D. 03/25/2019 03:57 P Krys Day M.D. Date Dict: 03/16/2019/12:03 Swathi/Krys Day M.D. Date Trans: 03/17/2019 05:03 Jhoan/bessie [id number] cc: Titus Villegas M.D. [address] [facility] [id number] Normal [facility] MAGNESIUM BLOODon 03-17-2019 Magnesium [Mass/Vol] 2.2 mg/dL Normal 1.9-2.7 [facility] Comment on above: Order Comment: No: D o not add to previous draw Performed By: #### 0 0121, 43081, 35918, 09309, 84206 #### [facility] [address] [facility] UFH HEPARIN ASSAYon 03-17-20 19 UNFRACTIONATED HEPARIN 0.30 IU/mL Normal 0.30-0.70 [facility] Comment on above: Result Comment: Estefania roxaban and Apixaban will interfere with the anti Xa assay used to monitor UFH and LMWH. Performed By: #### 0 0121, 47860, 97983, 50843, 95471 #### [facility] [address] APTTon 03-16-2019 aPTT Coag (Bld) [Time] 63.7 s High 25.0-35.0 [facility] Comment on above: Order Comment: No: D o not add to previous draw Result Comment: ALL RESULTS MUST BE INTERPRETED WITH RESPECT TO BLOOD DRAWING ARTIFACT OR DILUTION ERROR OF ANTICOAGULANT AT THE TIME OF SAMPLING. THE APTT SHOULD NOT BE USED TO MONITOR UNFRACTIONATED HEPARIN THERAPY, THIS LABORATORY NO LONGER HAS AN ESTABLISHED THERAPEUTIC RANGE BASED ON THE APTT. IT IS RECOMMENDED THAT THE UFH - HEPARIN ASSAY (ANTI-XA ACTIVITY) BE USED FOR THIS PURPOSE. CLINICAL SIGNIFICANCE OF THE PTT RESULT IS QUESTIONABLE IN THE PRESENCE OF HEPARIN. Performed By: #### 0 0121, 28865, 96423, 39616, 29469 #### [facility] [address] aPTT Coag (Bld) [Time] 87.5 s Critically high 25.0-35.0 [facility] Comment on above: Order Comment: No: D o not add to previous draw Result Comment: ALL RESULTS MUST BE INTERPRETED WITH RESPECT TO BLOOD DRAWING ARTIFACT OR DILUTION ERROR OF ANTICOAGULANT AT THE TIME OF SAMPLING. THE APTT SHOULD NOT BE USED TO MONITOR UNFRACTIONATED HEPARIN THERAPY, THIS LABORATORY NO LONGER HAS AN ESTABLISHED THERAPEUTIC RANGE BASED ON THE APTT. IT IS RECOMMENDED THAT THE UFH - HEPARIN ASSAY (ANTI-XA ACTIVITY) BE USED FOR THIS PURPOSE. RESULTS CHECKED AND CALLED. ACCURATELY READ BACK BY DAKOTAH MONTANO RN @ 0535 on 03-16-19 CLINICAL SIGNIFICANCE OF THE PTT RESULT IS QUESTIONABLE IN THE PRESENCE OF HEPARIN. Performed By: #### 0 0121, 22139, 22820, 80911, 49538 #### [facility] [address] Cardiovascular Lab Reporton 03-16-2019 Cardiovascular Lab Report [facility] Patient Name: [facility] Jeri MR #: [id number] Department of Physician: Ilan Danielson MD Division of Service Date: 03/16/2019 Cardiology Birthdate: 1965 Adult Cardiovascular Room #: 3AB [id number] [place] [address] Cardiovascular Laboratory Report PROCEDURE: Transesophageal echocardiogram and cardioversion. INDICATION: Atrial fibrillation. PROCEDURE IN DETAIL: An informed consent was obtained from the patient after explaining indications, risks, benefits, and alternatives. The patient understood and agreed and signed the consent form. The patient was brought to the analytical lab technician and GERMAN/transesophageal echocardiogram was performed under conscious sedation. The patient obtained a total of 9 mg of Versed and 150 mcg of Fentanyl during the procedure. The transesophageal echocardiogram did not show any thrombus in the left atrial appendage. Full GERMAN reported elsewhere. After the transesophageal echocardiogram, synchronized biphasic cardioversion was done with 200 joules of energy. The patient successfully converted to sinus rhythm as evidenced by the EKG done post procedure. No complications throughout the procedure. Electronically Signed by: Ilan Danielson MD 03/25/2019 01:06 P Ilan Danielson MD Date Dict: 03/16/2019/10:22 A/Ilan Danielson MD Date Trans: 03/16/2019 07:28 P/mmo [id number] cc: Titus Villegas M.D. [address] [facility] [phone] Normal [place] ERYTHROPOIETIN [id number] 03-16 ERYTHROPOIETIN 7 mU/mL Normal 4-27 [facility] Comment on above: Order Comment: << ON ADMISSION If not done in ED>> No: Do not add to previous draw Result Comment: INTE RPRETIVE INFORMATION: Erythropoietin Normal serum concentrations of erythropoietin for 95% of individuals with normal hematocrits range from 4-27 mU/mL. As the hematocrit is lowered by iron deficiency, aplastic, or hemolytic anemia, the concentration of erythropoietin increases as shown in the graph below. In the absence of anemia, elevated concentrations are seen in renal tumors, as a manifestation of renal transplant rejection, and in secondary polycythemia. Low values may be observed in hemochromatosis. Expected Erythropoietin Concentrations in Patients with Uncomplicated Anemia Erythropoietin (mU/mL) 100,000 - + + 10,000 - +....... + ....... 1,000 - + ....... + ........ 100 - + ........ + ........ 10 - + ........ +---+---+---+---+---+---+ 10 20 30 40 50 60 70 (Hematocrit %) (Contributions To Nephrology 1988:66:54-62) Decreased erythropoietin concentrations with an elevated hematocrit are observed in patients with polycythemia rubra vera, and with a decreased hematocrit in patients with HIV infection who are receiving AZT. Patients on AZT who have anemia and erythropoietin concentrations of less than or equal to 500 mU/mL may benefit from therapy with recombinant EPO ([facility] [id number]). Performed by [facility], [address] [place] [id number] [email or web address], Jann Somers MD - Lab. Director UFH HEPARIN ASSAYon 03-16-20 19 UNFRACTIONATED HEPARIN 0.43 IU/mL Normal 0.30-0.70 [facility] Comment on above: Result Comment: Estefania roxaban and Apixaban will interfere with the anti Xa assay used to monitor UFH and LMWH. Performed By: #### 0 0121, 91632, 79495, 90337, 27299 #### [facility] [address] UNFRACTIONATED HEPARIN 0.53 IU/mL Normal 0.30-0.70 [facility] Comment on above: Result Comment: [place] roxaban and Apixaban will interfere with the anti Xa assay used to monitor UFH and LMWH. Performed By: #### 0 0121, 44021, 40256, 42999, 31700 #### [facility] [address] [place] [address], [facility] APTTon 03-15-2019 aPTT Coag (Bld) [Time] 74.0 s Critically high 25.0-35.0 [facility] Comment on above: Order Comment: No: D o not add to previous draw Result Comment: ALL RESULTS MUST BE INTERPRETED WITH RESPECT TO BLOOD DRAWING ARTIFACT OR DILUTION ERROR OF ANTICOAGULANT AT THE TIME OF SAMPLING. THE APTT SHOULD NOT BE USED TO MONITOR UNFRACTIONATED HEPARIN THERAPY, THIS LABORATORY NO LONGER HAS AN ESTABLISHED THERAPEUTIC RANGE BASED ON THE APTT. IT IS RECOMMENDED THAT THE UFH - HEPARIN ASSAY (ANTI-XA ACTIVITY) BE USED FOR THIS PURPOSE. CLINICAL SIGNIFICANCE OF THE PTT RESULT IS QUESTIONABLE IN THE PRESENCE OF HEPARIN. RESULTS CHECKED AND CALLED. ACCURATELY READ BACK BY DAKOTAH MONTANO RN AT 2127 Performed By: #### 0 0121, 11372, 78348, 85567, 88296 #### [facility] [address] [place] [address], [facility] aPTT Coag (Bld) [Time] 84.1 s Critically high 25.0-35.0 [facility] Comment on above: Order Comment: << On admission If not done in ED>> No: Do not add to previous draw Result Comment: ALL RESULTS MUST BE INTERPRETED WITH RESPECT TO BLOOD DRAWING ARTIFACT OR DILUTION ERROR OF ANTICOAGULANT AT THE TIME OF SAMPLING. THE APTT SHOULD NOT BE USED TO MONITOR UNFRACTIONATED HEPARIN THERAPY, THIS LABORATORY NO LONGER HAS AN ESTABLISHED THERAPEUTIC RANGE BASED ON THE APTT. IT IS RECOMMENDED THAT THE UFH - HEPARIN ASSAY (ANTI-XA ACTIVITY) BE USED FOR THIS PURPOSE. RESULTS CHECKED AND CALLED. ACCURATELY READ BACK BY DAXA MONTEJO RN @ 1309 CLINICAL SIGNIFICANCE OF THE PTT RESULT IS QUESTIONABLE IN THE PRESENCE OF HEPARIN. Performed By: #### 0 0121, 70954, 96599, 08492, 32168 #### [facility] [address] [place] [address], [place] aPTT Coag (Bld) [Time] 59.2 s High 25.0-35.0 [facility] Comment on above: Order Comment: << On admission If not done in ED>> No: Do not add to previous draw Result Comment: ALL RESULTS MUST BE INTERPRETED WITH RESPECT TO BLOOD DRAWING ARTIFACT OR DILUTION ERROR OF ANTICOAGULANT AT THE TIME OF SAMPLING. THE APTT SHOULD NOT BE USED TO MONITOR UNFRACTIONATED HEPARIN THERAPY, THIS LABORATORY NO LONGER HAS AN ESTABLISHED THERAPEUTIC RANGE BASED ON THE APTT. IT IS RECOMMENDED THAT THE UFH - HEPARIN ASSAY (ANTI-XA ACTIVITY) BE USED FOR THIS PURPOSE. Performed By: #### 0 0121, 12308, 64451, 81940, 61211 #### [facility] [address] [place] [address], [facility] BASIC METABOLIC PANELon 06- Calcium [Mass/Vol] 9.9 mg/dL Normal 8.6-10.3 [facility] Comment on above: Order Comment: << On admission If not done in ED>> No: Do not add to previous draw Performed By: #### 0 0121, 75005, 92653, 16250, 29624 #### [facility] [address] [place] [address], [facility] Chloride [Moles/Vol] 101 mmol/L Normal 98-107 [facility] Comment on above: Order Comment: << On admission If not done in ED>> No: Do not add to previous draw Performed By: #### 0 0121, 92081, 03133, 82444, 21711 #### [facility] [address] [place] [address], [facility] CO2 [Moles/Vol] 25 mmol/L Normal 21-31 [facility] Comment on above: Order Comment: << On admission If not done in ED>> No: Do not add to previous draw Performed By: #### 0 0121, 09104, 60375, 47591, 74827 #### [facility] [address] [place] [address], [facility] Creatinine [Mass/Vol] 1.02 mg/dL Normal 0.70-1.30 [facility] Comment on above: Order Comment: << On admission If not done in ED>> No: Do not add to previous draw Performed By: #### 0 0121, 46207, 69402, 79590, 57276 #### [facility] [address] [place] [address], [place] GFR/1.73 sq M predicted among blacks MDRD (S/P/Bld) [Vol rate/Area] mL/min/{1.73_m2} Normal >60 [facility] Comment on above: Order Comment: << On admission If not done in ED>> No: Do not add to previous draw Performed By: #### 0 0121, 45691, 21228, 17562, 98982 #### [facility] [address] [place] [address], [place] GFR/1.73 sq M predicted among non-blacks MDRD (S/P/Bld) [Vol rate/Area] mL/min/{1.73_m2} Normal >60 [facility] Comment on above: Order Comment: << On admission If not done in ED>> No: Do not add to previous draw Performed By: #### 0 0121, 14856, 71916, 97128, 18941 #### [facility] [address] [place] [address], [place] Glucose [Mass/Vol] 100 mg/dL Normal 70-100 [facility] Comment on above: Order Comment: << On admission If not done in ED>> No: Do not add to previous draw Performed By: #### 0 0121, 96810, 06307, 05883, 01875 #### [facility] [address] [place] [address], [place] Potassium [Moles/Vol] 4.0 mmol/L Normal 3.5-5.1 [facility] Comment on above: Order Comment: << On admission If not done in ED>> No: Do not add to previous draw Performed By: #### 0 0121, 83488, 19967, 97753, 67315 #### [facility] [address] [place] [address], [place] Sodium [Moles/Vol] 135 mmol/L Low 136-145 [facility] Comment on above: Order Comment: << On admission If not done in ED>> No: Do not add to previous draw Performed By: #### 0 0121, 61605, 65061, 47564, 13427 #### [facility] [address] [place] [address], [facility] Urea nitrogen [Mass/Vol] 24 mg/dL Normal 7-25 [facility] Comment on above: Order Comment: << On admission If not done in ED>> No: Do not add to previous draw Performed By: #### 0 0121, 43057, 11070, 60797, 54842 #### [facility] [address] CBC COMPLETE BLOOD COUNTon 0 - Erythrocyte distribution width (RBC) [Ratio] 13.1 % Normal 11.5-15.0 [facility] Comment on above: Order Comment: << On admission If not done in ED>> No: Do not add to previous draw Performed By: #### 0 0121, 28843, 39864, 48660, 95644 #### [facility] [address] Hematocrit (Bld) [Volume fraction] 53.6 % High 39.0-50.0 [facility] Comment on above: Order Comment: << On admission If not done in ED>> No: Do not add to previous draw Performed By: #### 0 0121, 84772, 08678, 79392, 68310 #### [facility] [address] [place], [place] [address] Hemoglobin (Bld) [Mass/Vol] 17.4 g/dL High 13.0-17.0 [facility] Comment on above: Order Comment: << On admission If not done in ED>> No: Do not add to previous draw Performed By: #### 0 0121, 63504, 31900, 53593, 39731 #### [facility] [address] [place] [address], [facility] MCH (RBC) [Entitic mass] 28.6 pg Normal 27.0-33.0 [facility] Comment on above: Order Comment: << On admission If not done in ED>> No: Do not add to previous draw Performed By: #### 0 0121, 87288, 36043, 39306, 79149 #### [facility] [address] [facility]. [address] MCHC (RBC) [Mass/Vol] 32.5 g/dL Normal 32.0-35.0 [place] Comment on above: Order Comment: << On admission If not done in ED>> No: Do not add to previous draw Performed By: #### 0 0121, 74557, 15931, 56565, 64446 #### [facility] [address] MCV (RBC) [Entitic vol] 88.0 fL Normal 82.0-98.0 [place] Comment on above: Order Comment: << On admission If not done in ED>> No: Do not add to previous draw Performed By: #### 0 0121, 28352, 05892, 14103, 27391 #### [facility] [address] Nucleated RBC/100 WBC (Bld) [Ratio] 0 % Normal 0-0 [place] Comment on above: Order Comment: << On admission If not done in ED>> No: Do not add to previous draw Performed By: #### 0 0121, 96903, 39463, 15960, 37995 #### [facility] [address] [facility] [place] [address], [facility] PLAT CNT 286 10*3/uL Normal 150-400 [facility] Comment on above: Order Comment: << On admission If not done in ED>> No: Do not add to previous draw Performed By: #### 0 0121, 00669, 75118, 77399, 18644 #### [facility] [address] [place] [address], [facility] RBC (Bld) [#/Vol] 6.09 10*6/uL High 4.20-5.70 [facility] Comment on above: Order Comment: << On admission If not done in ED>> No: Do not add to previous draw Performed By: #### 0 0121, 74175, 25240, 95367, 58600 #### [facility] [address] [place] [address], [facility] WBC (Bld) [#/Vol] 10.49 10*3/uL Normal 4.00-10.60 [facility] Comment on above: Order Comment: << On admission If not done in ED>> No: Do not add to previous draw Performed By: #### 0 0121, 51492, 95298, 04263, 85773 #### [facility] [address] [place] [address], [facility] LIPID PROFILEon 03-15-2019 Cholesterol [Mass/Vol] 140 mg/dL Normal 120-200 [place] Comment on above: Order Comment: << On admission If not done in ED>> No: Do not add to previous draw Result Comment: CHOL ESTEROL REFERENCE RANGE: 20 YEARS AND OLDER CARDIOVASCULAR RISK Less than 200 mg/dl Low Risk 200 to 239 mg/dl Borderline Risk 240 mg/dl and greater High Risk Performed By: #### 0 0121, 58612, 36363, 04923, 04768 #### [facility] [address] [place] [address], [facility] Cholesterol in HDL [Mass/Vol] 38 mg/dL Normal 23-92 [facility] Comment on above: Order Comment: << On admission If not done in ED>> No: Do not add to previous draw Result Comment: Slig ht variation in normal range could be due to gender and/or age. HDL CHOLESTEROL REFERENCE RANGE: 20 years and older Cardiovascular Risk > or =60 mg/dL Desirable 40 TO 59 mg/dL Low Risk <40 mg/dL High Risk Performed By: #### 0 0121, 50363, 40990, 17439, 47829 #### [facility] [address] [place] [address], [facility] Cholesterol in LDL [Mass/Vol] 88 mg/dL Normal 0-130 [place] Comment on above: Order Comment: << On admission If not done in ED>> No: Do not add to previous draw Result Comment: LDL IS A CALCULATION LDL IS ONLY VALID IF THE TRIG IS LESS THAN 400. Performed By: #### 0 0121, 07700, 90565, 09320, 41115 #### [facility] [address] [place] [address], [facility] Cholesterol.total/Ch olesterol in HDL [Mass ratio] 3.7 {ratio} Normal .0-4.5 [facility] Comment on above: Order Comment: << On admission If not done in ED>> No: Do not add to previous draw Performed By: #### 0 0121, 71497, 60533, 69742, 24249 #### [facility] [address] [place] [address], [facility] NON-HDL CHOLESTEROL 102 mg/dL Normal [facility] Comment on above: Order Comment: << On admission If not done in ED>> No: Do not add to previous draw Performed By: #### 0 0121, 46502, 08305, 62944, 73120 #### [facility] [address] [place] [address], [facility] Triglyceride [Mass/Vol] 70 mg/dL Normal 40-149 [facility] Comment on above: Order Comment: << On admission If not done in ED>> No: Do not add to previous draw Result Comment: TRIG LYCERIDE REFERENCE RANGE: 20 YEARS AND OLDER CARDIOVASCULAR RISK LESS THAN 150 mg/dl LOW RISK 150 TO 199 mg/dl BORDERLINE RISK 200 mg/dl AND GREATER HIGH RISK Performed By: #### 0 0121, 46449, 55456, 58800, 90679 #### [facility] [address] [place] [address], [facility] VLDL CHOL 14 mg/dL Normal 0-40 [facility] Comment on above: Order Comment: << On admission If not done in ED>> No: Do not add to previous draw Performed By: #### 0 0121, 48240, 03965, 30295, 52151 #### [facility] [address] TROPONIN-Ion 03-15-2019 Troponin I.cardiac [Mass/Vol] 0.01 ng/mL Normal 0.00-0.04 [place] Comment on above: Order Comment: << On admission If not done in ED>> No: Do not add to previous draw Result Comment: REFE RENCE RANGES: 0.00 - 0.04 ng/ml NORMAL 0.05 - 0.50 ng/ml INDETERMINATE > 0.50 ng/ml CONSISTENT WITH AN M.I. Performed By: #### 0 0121, 16083, 71068, 22557, 15034 #### [facility] [address] UFH HEPARIN ASSAYon 03-15-20 19 UNFRACTIONATED HEPARIN 0.62 IU/mL Normal 0.30-0.70 [place] Comment on above: Order Comment: No: D o not add to previous draw Result Comment: [place] roxaban and Apixaban will interfere with the anti Xa assay used to monitor UFH and LMWH. Performed By: #### 0 0121, 79196, 55903, 32109, 00200 #### [facility] [address] [place] [address], [facility] UNFRACTIONATED HEPARIN 0.92 IU/mL Critically high 0.30-0.70 [facility] Comment on above: Result Comment: [place] roxaban and Apixaban will interfere with the anti Xa assay used to monitor UFH and LMWH. RESULTS CHECKED AND CALLED. ACCURATELY READ BACK BY DAXA MONTEJO RN @ 5810 Performed By: #### 0 0121, 46347, 52230, 43587, 26735 #### [facility] [address] [place] [address], [facility] UNFRACTIONATED HEPARIN 0.90 IU/mL Critically high 0.30-0.70 [facility] Comment on above: Result Comment: [place] roxaban and Apixaban will interfere with the anti Xa assay used to monitor UFH and LMWH. RESULTS CHECKED AND CALLED. ACCURATELY READ BACK BY DAXA MONTEJO RN @ 0171 Performed By: #### 0 0121, 71081, 90050, 30520, 78489 #### [facility] [address] [place] [address], [facility] APTTon 03-14-2019 aPTT Coag (Bld) [Time] 32.8 s Normal 25.0-35.0 [place] Comment on above: Order Comment: No: D o not add to previous draw Result Comment: ALL RESULTS MUST BE INTERPRETED WITH RESPECT TO BLOOD DRAWING ARTIFACT OR DILUTION ERROR OF ANTICOAGULANT AT THE TIME OF SAMPLING. THE APTT SHOULD NOT BE USED TO MONITOR UNFRACTIONATED HEPARIN THERAPY, THIS LABORATORY NO LONGER HAS AN ESTABLISHED THERAPEUTIC RANGE BASED ON THE APTT. IT IS RECOMMENDED THAT THE UFH - HEPARIN ASSAY (ANTI-XA ACTIVITY) BE USED FOR THIS PURPOSE. Performed By: #### 5 7307 #### [facility] [address] [facility]. [address] BNP (B-TYPE NATRIURETIC PEPT PACHECO)on 03-14-2019 Natriuretic peptide B (Bld) [Mass/Vol] 112 pg/mL High 0-100 [facility] Comment on above: Order Comment: If no t done in ED No: Do not add to previous draw Result Comment: Give n the appropriate clinical setting a BNP result of >100 pg/mL indicates congestive heart failure. Performed By: #### 8 5123, 13752 #### [facility] [address] [facility] [place] [address], [facility] CBC W/DIFFon 03-14-2019 ABS BASOPHILS 0.1 10*3/uL Normal 0.0-0.2 [facility] Comment on above: Order Comment: If no t done in ED No: Do not add to previous draw Performed By: #### 5 0103 #### [facility] [address] [place] [address], [facility] ABS IMM GRANS 0.1 10*3/uL Normal 0.0-0.2 [facility] Comment on above: Order Comment: If no t done in ED No: Do not add to previous draw Performed By: #### 5 0103 #### [facility] [address] [place] [address], [facility] ABS NEUTROPHILS 7.1 10*3/uL Normal 1.6-7.6 [facility] Comment on above: Order Comment: If no t done in ED No: Do not add to previous draw Performed By: #### 5 0103 #### [facility] [address] [place] [address], [facility] Basophils/100 WBC (Bld) 1.0 % Normal 0.0-1.0 [facility] Comment on above: Order Comment: If no t done in ED No: Do not add to previous draw Performed By: #### 5 0103 #### [facility] [address] [place] [address], [facility] Eosinophils (Bld) [#/Vol] 0.3 10*3/uL Normal 0.0-0.5 [facility] Comment on above: Order Comment: If no t done in ED No: Do not add to previous draw Performed By: #### 5 0103 #### [facility] [address] [place] [address], [facility] Eosinophils/100 WBC (Bld) 2.8 % Normal 0.0-6.0 [facility] Comment on above: Order Comment: If no t done in ED No: Do not add to previous draw Performed By: #### 5 0103 #### [facility] [address] [place] [address], [place] Erythrocyte distribution width (RBC) [Ratio] 13.2 % Normal 11.5-15.0 [facility] Comment on above: Order Comment: If no t done in ED No: Do not add to previous draw Performed By: #### 5 0103 #### [facility] [address] [place] [address], [facility] Hematocrit (Bld) [Volume fraction] 53.8 % High 39.0-50.0 [facility] Comment on above: Order Comment: If no t done in ED No: Do not add to previous draw Performed By: #### 5 0103 #### [facility] [address] [place] [address], [facility] Hemoglobin (Bld) [Mass/Vol] 17.2 g/dL High 13.0-17.0 [facility] Comment on above: Order Comment: If no t done in ED No: Do not add to previous draw Performed By: #### 5 0103 #### [facility] [address] [place] [id number], [facility] IMMATURE GRANS 0.5 % Normal 0.0-1.[address] [facility] Comment on above: Order Comment: If no t done in ED No: Do not add to previous draw Performed By: #### 5 0103 #### [facility] [address] [place] [address], [facility] Lymphocytes (Bld) [#/Vol] 2.4 10*3/uL Normal 1.2-4.0 [facility] Comment on above: Order Comment: If no t done in ED No: Do not add to previous draw Performed By: #### 5 0103 #### [facility] [address] [place] [id number], [facility] Lymphocytes/100 WBC (Bld) 21.0 % Normal 20.0-45.0 [facility] Comment on above: Order Comment: If no t done in ED No: Do not add to previous draw Performed By: #### 5 0103 #### [facility] [address] [place] [address], [place] MCH (RBC) [Entitic mass] 28.9 pg Normal 27.0-33.0 [facility] Comment on above: Order Comment: If no t done in ED No: Do not add to previous draw Performed By: #### 5 0103 #### [facility] [address] [place] [address], [facility] MCHC (RBC) [Mass/Vol] 32.0 g/dL Normal 32.0-35.0 [facility] Comment on above: Order Comment: If no t done in ED No: Do not add to previous draw Performed By: #### 5 0103 #### [facility] [address] [place] [address], [facility] MCV (RBC) [Entitic vol] 90.4 fL Normal 82.0-98.0 [facility] Comment on above: Order Comment: If no t done in ED No: Do not add to previous draw Performed By: #### 5 0103 #### [facility] [address] [place] [address], [facility] Monocytes (Bld) [#/Vol] 1.4 10*3/uL High 0.1-1.0 [facility] Comment on above: Order Comment: If no t done in ED No: Do not add to previous draw Performed By: #### 5 0103 #### [facility] [address] [facility] [place] [address], [facility] MONOS 12.2 % High 5.0-12.0 [facility] Comment on above: Order Comment: If no t done in ED No: Do not add to previous draw Performed By: #### 5 0103 #### [facility] [address] [place] [address], [facility] Neutrophils/100 WBC (Bld) 62.5 % Normal 40.0-72.0 [facility] Comment on above: Order Comment: If no t done in ED No: Do not add to previous draw Performed By: #### 5 0103 #### [facility] [address] [place] [id number], [facility] Nucleated RBC/100 WBC (Bld) [Ratio] 0 % Normal 0-0 [facility] Comment on above: Order Comment: If no t done in ED No: Do not add to previous draw Performed By: #### 5 0103 #### [facility] [address] [facility] [place] [address], [facility] PLAT CNT 321 10*3/uL Normal 150-400 [facility] Comment on above: Order Comment: If no t done in ED No: Do not add to previous draw Performed By: #### 5 0103 #### [facility] [address] [place] [address], [facility] RBC (Bld) [#/Vol] 5.95 10*6/uL High 4.20-5.70 [facility] Comment on above: Order Comment: If no t done in ED No: Do not add to previous draw Performed By: #### 5 0103 #### [facility] [address] [facility] [place] [address], [facility] WBC (Bld) [#/Vol] 11.32 10*3/uL High 4.00-10.60 [place] Comment on above: Order Comment: If no t done in ED No: Do not add to previous draw Performed By: #### 5 0103 #### [facility] [address] [facility]. [address] COMP METABOLIC PANELon 03-14 Albumin [Mass/Vol] 4.3 g/dL Normal 3.5-5.7 [facility] Comment on above: Order Comment: << On admission If not done in ED>> No: Do not add to previous draw Performed By: #### 0 0121, 03732, 85565, 62212, 06122 #### [facility] [address] ALKALINE PHOSPH 59 IU/L Normal 34-104 [facility] Comment on above: Order Comment: << On admission If not done in ED>> No: Do not add to previous draw Performed By: #### 0 0121, 71215, 59314, 10963, 46188 #### [facility] [address] [place] [address], [place] ALT [Catalytic activity/Vol] 21 U/L Normal 7-52 [place] Comment on above: Order Comment: << On admission If not done in ED>> No: Do not add to previous draw Performed By: #### 0 0121, 05654, 15637, 57283, 30416 #### [facility] [address] [place] [address], [place] AST [Catalytic activity/Vol] 26 U/L Normal 13-39 [facility] Comment on above: Order Comment: << On admission If not done in ED>> No: Do not add to previous draw Performed By: #### 0 0121, 29368, 46482, 19339, 18721 #### [facility] [address] [place] [address], [place] Bilirubin [Mass/Vol] 1.1 mg/dL High 0.3-1.0 [place] Comment on above: Order Comment: << On admission If not done in ED>> No: Do not add to previous draw Performed By: #### 0 0121, 98168, 64293, 23816, 71842 #### [facility] [address] [place] [address], [place] Calcium [Mass/Vol] 10.5 mg/dL High 8.6-10.3 [facility] Comment on above: Order Comment: << On admission If not done in ED>> No: Do not add to previous draw Performed By: #### 0 0121, 39030, 82493, 56064, 41929 #### [facility] [address] [place] [address], [place] Chloride [Moles/Vol] 98 mmol/L Normal 98-107 [facility] Comment on above: Order Comment: << On admission If not done in ED>> No: Do not add to previous draw Performed By: #### 0 0121, 07895, 77006, 57564, 83962 #### [facility] [address] [place] [address], [facility] CO2 [Moles/Vol] 31 mmol/L Normal 21-31 [facility] Comment on above: Order Comment: << On admission If not done in ED>> No: Do not add to previous draw Performed By: #### 0 0121, 33581, 57294, 92957, 70211 #### [facility] [address] [place] [address], [facility] Creatinine [Mass/Vol] 1.36 mg/dL High 0.70-1.30 [place] Comment on above: Order Comment: << On admission If not done in ED>> No: Do not add to previous draw Performed By: #### 0 0121, 08139, 72658, 17205, 38130 #### [facility] [address] [place] [address], [facility] GFR/1.73 sq M predicted among blacks MDRD (S/P/Bld) [Vol rate/Area] mL/min/{1.73_m2} Normal >60 [place] Comment on above: Order Comment: << On admission If not done in ED>> No: Do not add to previous draw Performed By: #### 0 0121, 74447, 33553, 25914, 06243 #### [facility] [address] [place] [address], [facility] GFR/1.73 sq M predicted among non-blacks MDRD (S/P/Bld) [Vol rate/Area] 55 ml/min/1.73sq m Abnormal >60 [facility] Comment on above: Order Comment: << On admission If not done in ED>> No: Do not add to previous draw Performed By: #### 0 0121, 62008, 31696, 22933, 02252 #### [facility] [address] [place] [address], [place] Glucose [Mass/Vol] 81 mg/dL Normal 70-100 [facility] Comment on above: Order Comment: << On admission If not done in ED>> No: Do not add to previous draw Performed By: #### 0 0121, 97227, 27793, 87106, 27231 #### [facility] [address] [place] [address], [place] Potassium [Moles/Vol] 3.8 mmol/L Normal 3.5-5.1 [facility] Comment on above: Order Comment: << On admission If not done in ED>> No: Do not add to previous draw Performed By: #### 0 0121, 59327, 54583, 93997, 65119 #### [facility] [address] [place] [address], [place] Protein [Mass/Vol] 7.4 g/dL Normal 6.0-8.3 [facility] Comment on above: Order Comment: << On admission If not done in ED>> No: Do not add to previous draw Performed By: #### 0 0121, 08151, 16389, 30356, 92613 #### [facility] [address] [place] [address], [place] Sodium [Moles/Vol] 138 mmol/L Normal 136-145 [facility] Comment on above: Order Comment: << On admission If not done in ED>> No: Do not add to previous draw Performed By: #### 0 0121, 00849, 30855, 65527, 90535 #### [facility] [address] [place] [address], [place] Urea nitrogen [Mass/Vol] 26 mg/dL High 7-25 [facility] Comment on above: Order Comment: << On admission If not done in ED>> No: Do not add to previous draw Performed By: #### 0 0121, 78806, 35777, 45616, 95502 #### [facility] [address] [place] [address], [facility] FREE T4on 03-14-2019 Free T4 [Mass/Vol] 1.18 ng/dL Normal 0.71-1.85 [facility] Comment on above: Order Comment: If no t done in ED No: Do not add to previous draw Performed By: #### 0 0121, 42026, 81147, 58246, 01932 #### [facility] [address] [place] [address], [facility] HEMOGLOBIN A1Con 03-14-2019 HbA1c (Bld) [Mass fraction] 103 mg/dL Normal 70-126 [facility] Comment on above: Order Comment: If no t done in ED No: Do not add to previous draw Performed By: #### 8 5123, 97726 #### [facility] [address] [facility]. [address] HbA1c (Bld) [Mass fraction] 5.2 % Normal 4.0-6.0 [facility] Comment on above: Order Comment: If no t done in ED No: Do not add to previous draw Performed By: #### 8 5123, 33056 #### [facility] [address] [facility]. [address] History and Physicalon 03-14 History and Physical MR#: [id number] [facility] Pt. Name: Argelia Crain Admitted: 03/14/2019 Date of : 1965 Attending Physician: Dimitry Lyles M.D. Room #: [facility] [id number] Discharge Date: HISTORY AND PHYSICAL CHIEF COMPLAINT: Atrial fibrillation and bilateral lower extremity swelling. HISTORY OF PRESENT ILLNESS: Mr. Whitt is a 53-year-old male with the past medical history of depression and GERD, who was transferred from [facility] for atrial fibrillation and congestive heart failure. The patient states that he has been complaining of progressively worsening bilateral lower extremity swelling for the last four months. The patient states that he has never had bilateral lower extremity swelling like this in the past. The patient was seen by a [facility] and was sent to [facility]. At [facility], EKG showed atrial fibrillation with RVR. Chest x-ray showed bilateral pulmonary venous congestion. The patient was admitted for one day at [facility] and was started on metoprolol 75 mg twice a day and Eliquis. The patient was also diuresed with Lasix and put out around 2.8 L of urine. An echocardiogram was done at [facility], which showed a reduced ejection fraction, but the left ventricular systolic function was unable to be assessed. The patient denies chest pain or shortness of breath on rest, neither on exertion. The patient denies any palpitations. The patient denies fever, abdominal pain, nausea, vomiting, diarrhea, or headache. ALLERGIES: No known allergies. MEDICATIONS: Medications were reviewed and reconciled. PAST MEDICAL HISTORY: 1. Depression. 2. Varicose veins. 3. GERD. PAST SURGICAL HISTORY: Hernia repair. SOCIAL HISTORY: The patient denies tobacco use. The patient drinks beer every other day. The patient denies illicit drug use. 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 FAMILY HISTORY: Father is , by committing suicide. His mother is alive and has atrial fibrillation and Alzheimer's dementia. PHYSICAL EXAMINATION: VITAL SIGNS: Temperature 97.0, pulse 90, , pulse ox 95%, and respirations 16. GENERAL PRESENTATION: The patient appears to be in no acute distress. The patient is alert and oriented x3. HEENT: Eyes, pupils are reactive to light. LUNGS: Clear to auscultation bilaterally. No wheezing, rhonchi, or rales. CARDIOVASCULAR: Irregularly irregular rhythm. Normal S1/S2. No murmurs, rubs, or gallops. ABDOMEN: Soft, nontender, and nondistended. EXTREMITIES: Compression stocking in place. Bilateral lower extremity swelling. SKIN: Warm and dry to touch. LABORATORY RESULTS: Complete metabolic panel: Sodium , potassium 3.3, chloride 100, CO2 27.6, glucose 104, BUN 17, creatinine 1.06, calcium 9.4, ALT 27, AST 20, ALP 69, total protein 8.3, albumin 4.2, and total bilirubin 1.1. Urinalysis, unremarkable. TSH was 2.5. T4 6.70. Troponin 0.01. D-dimer 0.49. INR 1.11. BNP above 2000. TESTS/RADIOLOGY RESULTS: Echocardiogram: Left ventricular systolic function unable to be assessed, but the ejection fraction appears to be reduced. Chest x-ray showed bilateral pulmonary venous congestion. ASSESSMENT: 1. Atrial fibrillation with rapid ventricular response. 2. Acute systolic congestive heart failure exacerbation. 3. Hypotension. 4. Hypokalemia. 5. Depression. 6. Varicose veins. 7. Gastroesophageal reflux disease. PLAN: 1. Atrial fibrillation with RVR: His heart rate is currently controlled after he received metoprolol 75 mg b.i.d. at [facility]. His heart rate is currently in the 80s to 90s. Will start him on metoprolol 12.5 mg BID. The patient received a dose of Eliquis today this morning at [facility], will discontinue Eliquis and start him on heparin drip in the evening around 10 p.m. His TSH and T4 were normal at [facility]. If the patient does not convert back to normal sinus rhythm, the patient will have GERMAN/cardioversion on Saturday. 2. Acute systolic CHF exacerbation: An echocardiogram at [facility] showed reduced ejection fraction. The patient was diuresed with Lasix 40 mg IV twice a day at [place] and diuresed around 2.8 L. Will start him on Lasix 20 mg daily. Since his ECHO showed reduced ejection fraction, the patient will need a cardiac catheterization to rule out ischemic heart disease. Coordinate care with Cardiology team. 3. Hypokalemia: We will monitor electrolytes and replace as needed. 4. DVT prophylaxis: The patient will be on a heparin drip. Electronically Signed by: Dimitry Lyles M.D. 03/15/2019 11:23 A Dimitry Lyles M.D. Date Dict: 03/14/2019/12:17 P/Dimitry Lyles M.D. Date Trans: 03/14/2019 01:33 P/bessie [id number] Normal [facility] MAGNESIUM BLOODon 03-14-2019 Magnesium [Mass/Vol] 2.4 mg/dL Normal 1.9-2.7 [facility] Comment on above: Order Comment: << ON ADMISSION If not done in ED>> No: Do not add to previous draw Performed By: #### 0 0121, 43315, 67890, 07563, 99246 #### [place] [address], [facility] PORTABLE CHEST 1 VIEWon 02-28 PORTABLE CHEST 1 VIEW [facility] Department of Radiology [address] [place] [id number] ======== Patient Name: ARGELIA CRAIN : 1965 Sex: M Age: Race: NA Pt. Location: [id number] Patient Status: I Ordered Date: 03/14/2019 10:35:00 AM Completed Date: 03/14/2019 11:59 AM Requesting Provider: DIMITRY LYLES Attending Provider: PATRIA GALARZA Report Copy To: Signs & Symptoms: Shortness of Breath History: Patient history not available Comments: R/O Pulmonary Edema Exam: PORTABLE CHEST 1 VIEW ======== PORTABLE CHEST 1 VIEW 03/14/2019 11:59 AM EDT SIGNS AND SYMPTOMS: Shortness of Breath TECHNOLOGIST COMMENTS: Shortness of breath QUESTION FOR THE RADIOLOGIST: R/O Pulmonary Edema PROTOCOL: AP(PA) view was obtained. COMPARISON: None FINDINGS: Trachea Is midline. Cardiac silhouette appears enlarged. The mediastinum. Pulmonary vasculature is prominent. The left costophrenic sulcus appears slightly blunted. Interstitial markings are present. Lungs are clear bilaterally. No pneumothorax. IMPRESSION: CHF with interstitial and pulmonary edema. Tortuous descending aorta versus mediastinal adenopathy, nonemergent chest CT with contrast is recommended for further evaluation. Approved by:Kareem Liao on 03/14/2019 1:17 PM EDT. I, Yenni Osuna, have reviewed the images and report and concur with these findings. Electronically signed by:Yenni Osuna. Transcribed by: [email or web address], User Resident: KAREEM LIAO Electronically Signed by: YENNI OSUNA @ 03/14/2019 04:53 PM I personally read this/these film(s) with this resident Normal [facility] Comment on above: Order Comment: R/O P ulmonary Edema TROPONIN-Ion 03-14-2019 Troponin I.cardiac [Mass/Vol] 0.00 ng/mL Normal 0.00-0.04 [facility] Comment on above: Order Comment: << On admission If not done in ED>> No: Do not add to previous draw Result Comment: REFE RENCE RANGES: 0.00 - 0.14 ng/ml NEGATIVE 0.15 - 0.25 ng/ml INDETERMINATE > 0.25 ng/ml INDICATIVE OF AN M.I. Performed By: #### 0 0121, 02087, 07151, 03104, 90199 #### [facility] [address] [place] [address], [facility] Troponin I.cardiac [Mass/Vol] 0.01 ng/mL Normal 0.00-0.04 [facility] Comment on above: Order Comment: No: D o not add to previous draw Result Comment: REFE RENCE RANGES: 0.00 - 0.04 ng/ml NORMAL 0.05 - 0.50 ng/ml INDETERMINATE > 0.50 ng/ml CONSISTENT WITH AN M.I. Performed By: #### 0 0121, 35985, 32035, 87178, 32825 #### [facility] [address] [place] [address], [place] TSH3on 03-14-2019 TSH 3RD GENERATION 2.05 uIU/mL Normal 0.34-5.60 [facility] Comment on above: Order Comment: TSH3 with Reflex canceled. TSH3 ordered. Performed By: #### 0 0121, 23110, 84039, 91216, 55787 #### [facility] [address] [place] [address], [facility] CBC With Platelet No Differe ntialon 03-04-2018 Erythrocyte distribution width Auto Ratio (RBC) 13.9 % Normal 11.5-14.5 [facility] Erythrocytes (RBC) 5.34 10*6/uL Normal 4.70-6.10 [facility] Hematocrit (HCT) 49.8 % Normal 42.0-52.0 [facility] Hemoglobin mass conc (Bld) 16.4 g/dL Normal 14.0-18.0 [facility] MCH 30.8 pg Normal 27.0-31.3 [facility] MCHC mass conc (RBC) 33.0 % Normal 33.0-37.0 [facility] MCV 93.3 fL Normal 80.0-100.0 [facility] Platelets 281 10*3/uL Normal 130-400 [facility] WBC (Leukocytes) 9.3 10*3/uL Normal 4.8-10.8 [facility] Comprehensive Metabolic Pane gian 03-04-2018 Alanine aminotransferase (ALT) 20 U/L Normal 0-41 [facility] Albumin 4.6 g/dL Normal 3.9-4.9 [facility] Alkaline phosphatase (ALP) 56 U/L Normal 35-104 [facility] Anion gap 18 mmol/L Critically high 7-13 [facility] Aspartate aminotransferase (AST) 18 U/L Normal 0-40 [facility] Bilirubin (total) 0.7 mg/dL Normal 0.0-1.2 [facility] Calcium 9.4 mg/dL Normal 8.6-10.2 [facility] Chloride 103 mmol/L Normal 98-107 [facility] CO2 20 mmol/L Low 22-29 [facility] Creatinine 0.78 mg/dL Normal 0.70-1.20 [facility] eGFR (black) mL/min/{1.73_m2} Normal >60 [facility] Comment on above: Result Comment: >60 mL/min/1.73m2 EGFR, calc. for ages 18 and older using theMDRD formula (not corrected for weight), is valid for stablerenal function. eGFR (MDRD) mL/min/{1.73_m2} Normal >60 [facility] Comment on above: Result Comment: >60 mL/min/1.73m2 EGFR, calc. for ages 18 and older using theMDRD formula (not corrected for weight), is valid for stablerenal function. Globulin 2.7 g/dL Normal 2.3-3.5 [facility] Glucose mass conc 91 mg/dL Normal 74-109 [facility] Potassium molar conc 4.1 mmol/L Normal 3.5-5.1 [facility] Protein 7.3 g/dL Normal 6.4-8.1 [facility] Sodium 141 mmol/L Normal 132-144 [facility] Urea nitrogen 15 mg/dL Normal 6-20 [facility] Hemoglobin A1con 03-04-2018 Hemoglobin A1c/Hemoglobin.total mass fraction (Bld) 5.5 % Normal 4.8-5.9 [facility] Lipid Panelon 03-04-2018 Cholesterol 167 mg/dL Normal 0-199 [facility] Comment on above: Result Comment: ATP III Cholesterol classification is Desirable. HDL Cholesterol 47 mg/dL Normal 40-59 [facility] Comment on above: Result Comment: ATP III HDL Cholesterol Classification is Desirable.Expected Values:Males: >55 = No Risk 35-55 = Moderate Risk <35 = High RiskFemales: >65 = No Risk 45-65 = Moderate Risk <45 = High RiskNCEP Guidelines: Third Report January 2001>59 = negative risk factor for CHD<40 = major risk factor for CHD LDL Cholesterol 99 mg/dL Normal 0-129 [facility] Comment on above: Result Comment: ATP III LDL Classification is Optimal. Triglyceride 105 mg/dL Normal 0-200 [facility] Comment on above: Result Comment: ATP III Triglycerides Classification is Normal. Prostate Specific Ag Screeno n 03-04-2018 Prostate Specific Ag Screen 2.25 ng/mL Normal 0.00-3.89 [facility] Comment on above: Result Comment: When the Total PSA is between 3.00 and 10.00 ng/mL, considerrequesting a Free PSA to aid in diagnosis. TSH w/out Reflexon 8 Thyroid stimulating hormone (TSH) 2.550 uIU/mL Normal 0.270-4.20 [facility] Thyroxine Freeon 03-04-2018 Thyroxine Free 1.54 ng/dL Normal 0.93-1.70 [facility] Vital Signs Date Time Vital Sign Value Performing Clinician Faci lity 03-21-2019 15:41-0400 Respiratory rate 16 /min TITUS VILLEGAS [place] Comment on above: Performed By: #### 0 0121, 29776, 60511, 70830, 24141 #### [facility] [address] 03-21-2019 06:18-0400 Respiratory rate 16 /min TITUS VILLEGAS [place] Comment on above: Performed By: #### 0 0121, 64053, 33806, 08535, 08609 #### [facility] [address] [place] [address], [facility] 03-20-2019 15:18-0400 Respiratory rate 16 /min TITUS VILLEGAS [place] Comment on above: Performed By: #### 0 0121, 76969, 61547, 68735, 81837 #### [facility] [address] [place] [address], [facility] 03-20-2019 06:10-0400 Respiratory rate 16 /min TITUS ONEILLY [place] Comment on above: Performed By: #### 0 0121, 26103, 45314, 64920, 66339 #### [facility] [address] [place] [address], [facility] 03-20-2019 01:22-0400 Respiratory rate 16 /min TITUS VILLEGAS [place] Comment on above: Performed By: #### 0 0121, 50936, 65420, 82461, 67125 #### [facility] [address] [place] [address], [facility] 03-19-2019 22:02-0400 Respiratory rate 16 /min TITUS VILLEGAS [place] Comment on above: Performed By: #### 5 [id number] #### [facility] [address] [place] [address], [facility] 03-19-2019 20:06-0400 Respiratory rate 16 /min TITUS VILLEGAS [place] Comment on above: Performed By: #### 8 4511, 06391 ####[facility] [place] [address], [facility] 03-19-2019 18:48-0400 Respiratory rate 16 /min TITUS HOFernanda [place] Comment on above: Order Comment: R/O P ulmonary Edema Performed By: #### 8 4511, 07737 ####[facility] [facility].[address] Encounters Encounter Date Encounter Type Care Provider Facility Start: 04-08-2023 End: 04-08-2023 ambulatory [facility] Start: 02-11-2023 End: 02-11-2023 ambulatory [facility] Start: 02-05-2023 End: 02-06-[address] VIET SALAS Facility:[facility] Start: 12-19-2022 End: 12-20-[address] VIET SALAS Facility:[facility] Start: 11-19-2022 End: 11-19-2022 ambulatory [facility] Start: 11-09-2022 End: 11-10-[address] VIET SALAS Facility:[facility] Start: 10-16-2022 End: 10-16-2022 ambulatory VARGAS URIOSTEGUI [facility] Start: 09-14-2022 End: 09-15-2022 ambulatory KAI RUFFIN Facility:[facility] Start: 06-27-2022 End: 06-28-2022 ambulatory KAI RUFFIN Facility:[facility] Start: 06-13-2022 End: 06-14-[address] MELIDA CUELLAR Facility:[facility] Start: 06-07-2022 End: 06-08-[address] MELIDA CUELLAR Facility:[facility] Start: 06-01-2022 End: 06-02-[address] MELIDA CUELLAR Facility:[facility] Start: 05-30-[address] TITUS VILLEGAS . Facili ty:[facility] Start: 05-25-2022 End: 05-26-[address] MELIDA CUELLAR Facility:[facility] Start: 05-14-2022 End: 05-15-[address] MELIDA CUELLAR Facility:[facility] Start: 05-10-2022 End: 05-11-[address] MELIDA CUELLAR Facility:[facility] Start: 05-04-2022 End: 05-05-[address] MELIDA CUELLAR Facility:[facility] Start: 04-27-2022 End: 04-28-[address] MELIDA CUELLAR Facility:[facility] Start: 04-09-2022 Encounter for genera l adult medical examination without abnormal findings DR TITUS VILLEGAS . [facility] Start: 04-05-2022 End: 04-06-[address] TITUS VILLEGAS . Facility:[facility] Start: 04-05-2022 End: 04-06-2022 Encounter for general adult medical examination without abnormal findings DR TITUS VILLEGAS . Facility:[facility] Start: 03-08-2022 End: 03-09-[address] MELIDA CUELLAR Facility:[facility] Start: 05-12-2019 End: 05-13-2019 Patient encounter procedure ILAN DANIELSON Facility:[facility] Start: 03-14-2019 End: 03-27-2019 Evaluation and management of inpatient TITUS VILLEGAS Facility:[facility] Procedures Date Procedure Procedure Detail Performing Clinician Start: 04-05-[address] MELIDA CUELLAR Comment on above: Performed By: #### P [facility] ####[address] [place], [place] [address]GyDr. Leonie Beckham Start: 03-19-2019 DESTRUCTION OF CONDU CTION MECHANISM, OPEN APPROACH TIMBO BLACK Start: 03-19-2019 EXCISION OF MITRAL V ALVE, OPEN APPROACH TIMBO MASROOR Start: 03-19-2019 INSERTION OF ENDOTRA CHEAL AIRWAY INTO TRACHEA, VIA OPENING MAY DUNN Start: 03-19-2019 MEASURE OF ARTERIAL SATURATION, PERIPHERAL, PERC APPROACH TIMBO MASROOR Start: 03-19-2019 OCCLUSION OF SCARLET WIT H EXTRALUM DEV, OPEN APPROACH TIMBO MASROOR Start: 03-19-2019 Performance of Cardi ac Output, Continuous TIMBO MASROOR Start: 03-19-2019 REPAIR ATRIAL SEPTUM , OPEN APPROACH TIMBO MASROOR Start: 03-19-2019 RESPIRATORY VENTILAT ION, 24-96 CONSECUTIVE HOURS MAY DUNN Start: 03-19-[address] WITH SYNTH SUB, OPEN APPROACH TIMBO MASROOR Start: 03-19-2019 ULTRASONOGRAPHY OF R IGHT AND LEFT HEART, TRANSESOPHAGEAL TIMBO MASROOR Start: 03-18-2019 Antibody screen TITUS VILLEGAS Comment on above: Performed By: #### 0 0121, 19021, 87686, 49378, 87319 #### [facility] [address] Start: 03-16-2019 MEASURE CARDIAC SAMP L \T\ PRESSURE, BILATERAL, PERC KRYS DAY Start: 03-16-2019 FLUOROSCOPY OF LEFT HEART USING OTHER CONTRAST KRYS DAY Start: 03-16-2019 FLUOROSCOPY OF MULTI PLE CORONARY ARTERIES USING OTH CONTRAST KRYS DAY Start: 03-16-2019 Hindu of Cardi ac Rhythm, Single ILAN DANIELSON Payers Date Payer Category Payer Unknown [id number] 2.16.8 [id number] 1965 Unknown [id number] 2.16.8 [id number] 1965 Unknown [id number] 2.16.84 [id number] 1965 Unknown [id number] 2.16.84 [id number] 1965 Unknown [id number] 2.16.84 [id number] 1965 Unknown [id number] 2.16.84 0.1.809079.3.579.2.593 1965 Unknown [id number] 2.16.84 0.1.201198.3.579.2.593 1965 Unknown [id number] 2.16.84 0.1.750290.3.579.2.593 1965 Unknown [id number] 2.16.84 0.1.109887.3.579.2.593 1965 Unknown [id number] 2.16.84 0.1.949508.3.579.2.593 1965 Unknown [id number] 2.16.84 0.1.646645.3.579.2.593 1965 Unknown [id number] 2.16.84 0.1.722731.3.579.2.593 1965 Unknown [id number] 2.16.84 0.1.788683.3.579.2.593 1965 Unknown [id number] 2.16.84 0.1.064985.3.579.2.593 1964 Unknown [id number] 2.16.84 0.1.776779.3.579.2.593 1964 Unknown [id number] 2.16.84 0.1.786290.3.579.2.593 1965 Unknown [id number] 2.16.84 0.1.493673.3.579.2.593 1965 Unknown [id number] 2.16.84 [id number] 1960 Self-pay 1960 Unknown [id number] Progress note 04-08-2023 Note Date & Type Note Facility 04-08-2023 Note [facility] Subjective Tracie Crain is a 57 y.o. year old male patient being seen for f/u echo and labs Patient Active Problem List Diagnosis Right-sided heart failure (CMS/HCC) Status post mitral valve repair A-fib (CMS/HCC) Asymptomatic reticular venous varices of both lower extremities Atrial septal defect Family History Problem Relation Name Age of Onset Atrial fibrillation Mother Alzheimer's disease Mother Social History Tobacco Use Smoking status: Never Smokeless tobacco: Never Substance Use Topics Alcohol use: Not Currently HPI Tracie is seen in follow-up. Visit of 04/27/2019: He is a 54-year-old man who in February 2019 presented with atrial fibrillation and rapid ventricular response. He underwent transesophageal echocardiogram guided cardioversion. His coronary angiogram was normal. He was found to have severe mitral regurgitation due to prolapse and systolic heart failure. He underwent mitral valve repair and prior Maze procedure with exclusion of the left atrial appendage. His LV function improved to an ejection fraction of 50 percent following surgery. Since the surgery he has improved and however he still has shortness of breath on mild exertion relieved by rest. The symptoms are significant. His lower extremity edema is getting worse recently. He has no significant chest pain other than the incision site. He has no angina. He does not feel palpitations. He does feel tired. 03/19/19 - Minimally invasive MV repair and Cryomaze procedure ( No ACM w/ the LAAO clip) Lab 04/07/2019: Labs today Hg 12.3 BNP 502 Bun 15 Creatinine 1.22 Na 139 K 3.8 chl 99/ Co2 31 EKG 04/07/2019: Sinus tachycardia. Right superior axis deviation. When compared with ECG of 21-MAR-2019 20:42, DC interval has decreased, Vent. rate has increased BY 42 BPM. T wave inversion no longer evident in Inferior lead. Nonspecific T wave abnormality, improved in Lateral Echocardiogram 03/24/2019: Global left ventricular systolic function is at lower limits of normal (Visually estimated EF 50%). The septum is abnormal in its motion. Right ventricular systolic function appears reduced. The left atrium is moderately enlarged. An annuloplasty ring is seen in the mitral position with abnormally high Doppler flows Mean gradient is 12 mmHg at heart rate of 88 bpm.. Doppler studies suggest moderately elevated right sided pressures (elevated pulmonary pressure). Echocardiogram 03/25/2019: Global left ventricular systolic function is at lower limits of normal (Visually estimated EF 50%). The left ventricle is at upper normal limits in size. Left ventricular wall thickness is mildly increased. Eccentric left ventricular hypertrophy. The septum is abnormal in its motion, not unusal finding in the post open heart patient. Mildly reduced right ventricular systolic function. The right ventricle is severely enlarged. Focal thickening of the valve leaflets and chords consistent with operative repair.. A prosthetic ring is well-seated in the mitral annulus with intact leaflet excursion.. Trivial mitral regurgitation. No prosthesis stenosis. Mild tricuspid regurgitation. Doppler studies suggest mildly elevated right sided pressures. A limited echocardiogram was ordered to reassess the mitral valve. Mean transvalvular mitral gradient = 11 mmHg at heart rate = 95 bpm. Elevated gradient is partially due to tachycardia. Thi study was compared to the immediate postoperative GERMAN gradient which was incompletely measured with pulsed wave not continuous wave Doppler imaging. Transesophageal echocardiogram 03/16/2019: Global left ventricular systolic function is moderately reduced (Visually estimated EF 35%). Right ventricular systolic function appears reduced. The left atrium appears enlarged. Spontaneous contrast in the left atrium. Myxomatous degeneration of the mitral valve There is nonspecific thickening of the mitral valve leaflet. Moderate posterior mitral valve prolapse. Severe mitral regurgitation. Evidence of a moderate functional patent foramen ovale. - Biphasic cardioversion was performed at 200 J, the patient was converted to sinus rhythm - Blood pressure 103/75 Cardiac catheterization 03/16/2019: 1. Normal coronary arteries. 2. Elevated filling pressures consistent with decompensated congestive heart failure. 3. Borderline cardiac output and cardiac index. 4. Moderate mitral regurgitation. Visit of 05/25/2019: He is seen in follow up. After last visit I increased lasix and metoprolol dosing. He was in atrial flutter/fib at follow up visit with CT surgery and he then underwent GERMAN/Cardioversion. He has been doing better since then. Today's ECG showed sinus rhythm at 72 bpm. He says he can do most of activities without dyspnea. He has lost weight. He has no dizziness and no lightheadedness. His blood pressure has been o (more content not included)... [facility] Progress note 02-11-2023 Note Date & Type Note Facility 02-11-2023 Note [facility] Subjective Tracie Crain is a 57 y.o. year old male patient being seen for 3 mo follow up echo and labs. states she is still concerned about his discolored legs. Patient denies chest pain and SOB. LE edema at the end of the day resolves by morning. Patient Active Problem List Diagnosis Right-sided heart failure (CMS/HCC) Status post mitral valve repair A-fib (CMS/HCC) Asymptomatic reticular venous varices of both lower extremities Atrial septal defect Family History Problem Relation Name Age of Onset Atrial fibrillation Mother Alzheimer's disease Mother Social History Tobacco Use Smoking status: Never Smokeless tobacco: Never Substance Use Topics Alcohol use: Not Currently HPI Tracie is seen in follow-up. Visit of 04/27/2019: He is a 54-year-old man who in February 2019 presented with atrial fibrillation and rapid ventricular response. He underwent transesophageal echocardiogram guided cardioversion. His coronary angiogram was normal. He was found to have severe mitral regurgitation due to prolapse and systolic heart failure. He underwent mitral valve repair and prior Maze procedure with exclusion of the left atrial appendage. His LV function improved to an ejection fraction of 50 percent following surgery. Since the surgery he has improved and however he still has shortness of breath on mild exertion relieved by rest. The symptoms are significant. His lower extremity edema is getting worse recently. He has no significant chest pain other than the incision site. He has no angina. He does not feel palpitations. He does feel tired. 03/19/19 - Minimally invasive MV repair and Cryomaze procedure ( No ACM w/ the LAAO clip) Lab 04/07/2019: Labs today Hg 12.3 BNP 502 Bun 15 Creatinine 1.22 Na 139 K 3.8 chl 99/ Co2 31 EKG 04/07/2019: Sinus tachycardia. Right superior axis deviation. When compared with ECG of 21-MAR-2019 20:42, DC interval has decreased, Vent. rate has increased BY 42 BPM. T wave inversion no longer evident in Inferior lead. Nonspecific T wave abnormality, improved in Lateral Echocardiogram 03/24/2019: Global left ventricular systolic function is at lower limits of normal (Visually estimated EF 50%). The septum is abnormal in its motion. Right ventricular systolic function appears reduced. The left atrium is moderately enlarged. An annuloplasty ring is seen in the mitral position with abnormally high Doppler flows Mean gradient is 12 mmHg at heart rate of 88 bpm.. Doppler studies suggest moderately elevated right sided pressures (elevated pulmonary pressure). Echocardiogram 03/25/2019: Global left ventricular systolic function is at lower limits of normal (Visually estimated EF 50%). The left ventricle is at upper normal limits in size. Left ventricular wall thickness is mildly increased. Eccentric left ventricular hypertrophy. The septum is abnormal in its motion, not unusal finding in the post open heart patient. Mildly reduced right ventricular systolic function. The right ventricle is severely enlarged. Focal thickening of the valve leaflets and chords consistent with operative repair.. A prosthetic ring is well-seated in the mitral annulus with intact leaflet excursion.. Trivial mitral regurgitation. No prosthesis stenosis. Mild tricuspid regurgitation. Doppler studies suggest mildly elevated right sided pressures. A limited echocardiogram was ordered to reassess the mitral valve. Mean transvalvular mitral gradient = 11 mmHg at heart rate = 95 bpm. Elevated gradient is partially due to tachycardia. Thi study was compared to the immediate postoperative GERMAN gradient which was incompletely measured with pulsed wave not continuous wave Doppler imaging. Transesophageal echocardiogram 03/16/2019: Global left ventricular systolic function is moderately reduced (Visually estimated EF 35%). Right ventricular systolic function appears reduced. The left atrium appears enlarged. Spontaneous contrast in the left atrium. Myxomatous degeneration of the mitral valve There is nonspecific thickening of the mitral valve leaflet. Moderate posterior mitral valve prolapse. Severe mitral regurgitation. Evidence of a moderate functional patent foramen ovale. - Biphasic cardioversion was performed at 200 J, the patient was converted to sinus rhythm - Blood pressure 103/75 Cardiac catheterization 03/16/2019: 1. Normal coronary arteries. 2. Elevated filling pressures consistent with decompensated congestive heart failure. 3. Borderline cardiac output and cardiac index. 4. Moderate mitral regurgitation. Visit of 05/25/2019: He is seen in follow up. After last visit I increased lasix and metoprolol dosing. He was in atrial flutter/fib at follow up visit with CT surgery and he then underwent GERMAN/Cardioversion. He has been doing better since then. Today's ECG showed sinus rhythm a (more content not included)... [facility] Progress note 11-19-2022 Note Date & Type Note Facility 11-19-2022 Note [facility] Subjective Tracie Crain is a 57 y.o. year old male patient being seen for follow up echo per Vargas Uriostegui CNP. Patient Active Problem List Diagnosis Right-sided heart failure (CMS/HCC) Status post mitral valve repair A-fib (CMS/HCC) Asymptomatic reticular venous varices of both lower extremities Atrial septal defect Family History Problem Relation Name Age of Onset Atrial fibrillation Mother Alzheimer's disease Mother Social History Tobacco Use Smoking status: Never Smokeless tobacco: Never Substance Use Topics Alcohol use: Not Currently HPI Tracie is seen in follow-up. Visit of 04/27/2019: He is a 54-year-old man who in February 2019 presented with atrial fibrillation and rapid ventricular response. He underwent transesophageal echocardiogram guided cardioversion. His coronary angiogram was normal. He was found to have severe mitral regurgitation due to prolapse and systolic heart failure. He underwent mitral valve repair and prior Maze procedure with exclusion of the left atrial appendage. His LV function improved to an ejection fraction of 50 percent following surgery. Since the surgery he has improved and however he still has shortness of breath on mild exertion relieved by rest. The symptoms are significant. His lower extremity edema is getting worse recently. He has no significant chest pain other than the incision site. He has no angina. He does not feel palpitations. He does feel tired. 03/19/19 - Minimally invasive MV repair and Cryomaze procedure ( No ACM w/ the LAAO clip) Lab 04/07/2019: Labs today Hg 12.3 BNP 502 Bun 15 Creatinine 1.22 Na 139 K 3.8 chl 99/ Co2 31 EKG 04/07/2019: Sinus tachycardia. Right superior axis deviation. When compared with ECG of 21-MAR-2019 20:42, DC interval has decreased, Vent. rate has increased BY 42 BPM. T wave inversion no longer evident in Inferior lead. Nonspecific T wave abnormality, improved in Lateral Echocardiogram 03/24/2019: Global left ventricular systolic function is at lower limits of normal (Visually estimated EF 50%). The septum is abnormal in its motion. Right ventricular systolic function appears reduced. The left atrium is moderately enlarged. An annuloplasty ring is seen in the mitral position with abnormally high Doppler flows Mean gradient is 12 mmHg at heart rate of 88 bpm.. Doppler studies suggest moderately elevated right sided pressures (elevated pulmonary pressure). Echocardiogram 03/25/2019: Global left ventricular systolic function is at lower limits of normal (Visually estimated EF 50%). The left ventricle is at upper normal limits in size. Left ventricular wall thickness is mildly increased. Eccentric left ventricular hypertrophy. The septum is abnormal in its motion, not unusal finding in the post open heart patient. Mildly reduced right ventricular systolic function. The right ventricle is severely enlarged. Focal thickening of the valve leaflets and chords consistent with operative repair.. A prosthetic ring is well-seated in the mitral annulus with intact leaflet excursion.. Trivial mitral regurgitation. No prosthesis stenosis. Mild tricuspid regurgitation. Doppler studies suggest mildly elevated right sided pressures. A limited echocardiogram was ordered to reassess the mitral valve. Mean transvalvular mitral gradient = 11 mmHg at heart rate = 95 bpm. Elevated gradient is partially due to tachycardia. Thi study was compared to the immediate postoperative GERMAN gradient which was incompletely measured with pulsed wave not continuous wave Doppler imaging. Transesophageal echocardiogram 03/16/2019: Global left ventricular systolic function is moderately reduced (Visually estimated EF 35%). Right ventricular systolic function appears reduced. The left atrium appears enlarged. Spontaneous contrast in the left atrium. Myxomatous degeneration of the mitral valve There is nonspecific thickening of the mitral valve leaflet. Moderate posterior mitral valve prolapse. Severe mitral regurgitation. Evidence of a moderate functional patent foramen ovale. - Biphasic cardioversion was performed at 200 J, the patient was converted to sinus rhythm - Blood pressure 103/75 Cardiac catheterization 03/16/2019: 1. Normal coronary arteries. 2. Elevated filling pressures consistent with decompensated congestive heart failure. 3. Borderline cardiac output and cardiac index. 4. Moderate mitral regurgitation. Visit of 05/25/2019: He is seen in follow up. After last visit I increased lasix and metoprolol dosing. He was in atrial flutter/fib at follow up visit with CT surgery and he then underwent GERMAN/Cardioversion. He has been doing better since then. Today's ECG showed sinus rhythm at 72 bpm. He says he can do most of activities without dyspnea. He has lost weight. He has no dizziness and no lightheadedness. His (more content not included)... [facility] Progress note 10-16-2022 Note Date & Type Note Facility 10-16-2022 Note Patient here c/o LE edema and grayness color on his legs per . He recently had some vein procedures done with Dr. Cuellar. Had echo in May and labs in Aug 2022. Denies chest pain and SOB. Review of Systems Cardiovascular: Positive for leg swelling. Respiratory: Positive for cough. Skin: Positive for color change. All other systems reviewed and are negative. [facility] Progress note 10-16-2022 Note Date & Type Note Facility 10-16-2022 Note [facility] Note Subjective Tracie Crain is a 57 y.o. year old male patient with right-sided congestive heart failure, A. fib, and mitral valve regurgitation status post repair seen in follow-up for lower extremity discoloration and edema. is concerned about the color of his legs which was sexton as well as edema. She also reports he gets dypneic on exertion which he does not agree with. Denies chest pain or palpitations. Patient Active Problem List Diagnosis Right-sided heart failure (CMS/HCC) Status post mitral valve repair A-fib (CMS/HCC) Asymptomatic reticular venous varices of both lower extremities Atrial septal defect Family History Problem Relation Name Age of Onset Atrial fibrillation Mother Alzheimer's disease Mother Social History Tobacco Use Smoking status: Never Smokeless tobacco: Never Substance Use Topics Alcohol use: Not Currently Review of Systems Cardiovascular: Positive for dyspnea on exertion, leg swelling and paroxysmal nocturnal dyspnea. Negative for chest pain, irregular heartbeat, near-syncope, orthopnea, palpitations and syncope. All other systems reviewed and are negative. Objective Visit Vitals BP 111/69 (BP Location: Right arm, Patient Position: Sitting) Pulse 89 Ht 1.905 m (6' 3 ) Wt (!) 142 kg (312 lb) SpO2 98% BMI 39.00 kg/m??? Smoking Status Never BSA 2.74 m??? Physical Exam General: Awake, alert, good spirits. NAD Eyes: anicteric sclera. Non-injected conjunctiva. No xanthelasmas Neck: No elevated JVP. No carotid bruit Pulm: Breath sounds clear to ascultation bilaterally with no wheeze, crackles or rhonchi Cards: Irregular rate and rhythm, S1, S2. No S3 or S4 gallop. Murmur: none Abd: Soft, Nontender, physiologic bowel sounds are present Extr: Lower extremity edema: trace, severe vasculopathy, DP pulses: 2+ Skin: warm, dry, well perfused Neuro: A&Ox3, No gross deficits Allergies No Known Allergies Medications Current Outpatient Medications: aspirin 81 mg EC tablet, Take 1 tablet by mouth in the morning., Disp: , Rfl: ferrous sulfate 325 (65 Fe) MG tablet, Take 1 tablet by mouth in the morning and at bedtime., Disp: , Rfl: furosemide (Lasix) 40 mg tablet, Take 2 tabs in the AM, 1 tab at lunch, and 2 tabs in the PM, Disp: 450 tablet, Rfl: 2 levothyroxine (Synthroid, Levoxyl) 50 mcg tablet, Take 1 tablet by mouth in the morning., Disp: , Rfl: losartan (Cozaar) 25 mg tablet, Take 1 tablet (25 mg) by mouth in the morning., Disp: 90 tablet, Rfl: 2 metoprolol succinate XL (Toprol-XL) 50 mg 24 hr tablet, Take 1 tablet by mouth in the morning., Disp: , Rfl: potassium chloride CR (Klor-Con M20) 20 mEq ER tablet, Take 1 tablet by mouth with breakfast and with evening meal., Disp: , Rfl: sertraline (Zoloft) 50 mg tablet, Take 1 tablet by mouth in the morning., Disp: , Rfl: spironolactone (Aldactone) 25 mg tablet, Take 1 tablet by mouth in the morning and at bedtime., Disp: , Rfl: Recent Labs Lab Results Component Value Date CO2 31 04/07/2019 BUN 15 04/07/2019 CALCIUM 9.4 04/07/2019 Lab Results Component Value Date WBC 8.20 04/07/2019 HGB CANCELED 04/07/2019 HGB 12.4 (L) 04/07/2019 HGB 13.3 03/19/2019 HCT 39.2 04/07/2019 MCV 91.0 04/07/2019 PLT 520 (H) 04/07/2019 Imaging and other tests Echo: 06/27/2022 Left ventricle: Normal chamber size. Abnormal septal motion due to RV pressure or volume overload. LVEF 55%. Left atrium: Severe dilatation Right atrium: Severe dilatation Right ventricle: Moderate dilatation. Decreased right ventricular systolic function. Tricuspid valve: Normal mobility and thickness. No stenosis with moderate regurgitation. Doppler studies revealed severely greater than 60 elevated right sided pressures. RVSP is 70 mmHg. Mitral valve: Mild mitral valve stenosis, mean diastolic gradient 8 mmHg at a heart rate of 81 bpm. Trivial mitral regurgitation. Mitral valve ring is visualized. Aortic valve: Normal trileaflet appearance. Thickened aortic valve. Normal leaflet mobility. No evidence of aortic valve stenosis. No aortic regurgitation. Aortic root: Normal diameter and appearance. Pulmonic valve: Normal thickness and mobility. No stenosis no regurgitation. Pericardium: No evidence of pericardial effusion. Assessment Diagnoses and all orders for this visit: Chronic right-sided heart failure (CMS/HCC) - Complete Echo (TTE) w/wo Imaging Agent, Strain, 3D, Bubble Study; Future Status post mitral valve repair - Complete Echo (TTE) w/wo Imaging Agent, Strain, 3D, Bubble Study; Future Atrial fibrillation, unspecified type (CMS/HCC) Atrial septal defect Plan Chronic Right-sided heart failure -He does not appear to have significant lower extremity edema recommend continuing current diuretic regime Lasix 80mg BID and additional 40mg in the middle of the day. He is known to have right-sided heart failure, will repeat echo to mo (more content not included)... [facility] Clinical Note 11-29-2020 Note Date & Type Note Facility 11-29-2020 Note Chief Complaint referral for nevus of concern HPI Staff 55 year old male presents on consultation from Dr. Villegas for growth on left lower back. Present for several years. Has changed in size, shape and color over time per spouse. Does intermittent bleeding with trama. Intermittently painful and itchy. History of Present Illness 55 yo male with h/o a fib, mitral valve repair, referred for enlarging lesion left lower back; sore at times, no bleeding or ulceration, no pigmentation change; no personal h/o skin cancer; on baby asa daily, no NSAIDs. Review of Systems PHQ Score Initial Depression Screen Score: 0 ROS - Provider Constitutional: no fever, no sweats, no weight loss. Eyes: no glasses, no blurred vision, no visual loss. ENMT: no dentures, no hoarseness, no swallowing difficulties, no hearing loss, no ear infection(s), no nose bleeds. Cardiovascular: normal blood pressure, no chest pain, irregular heartbeat, no heart murmur. Respiratory: no shortness of breath, no cough, no asthma, no wheezing. Gastrointestinal: no nausea, no vomiting, no diarrhea, no constipation, no blood in stool, no change in bowel habits, no abdominal pain, no hepatitis. Genitourinary: no kidney stones, no urine infection, no dysuria. Musculoskeletal: no pain, no weakness. Skin: no changing moles, no rash, yes skin lumps. Neurologic: no seizures, no epilepsy, no headache. Psychiatric: no emotional or psychiatric problem. Heme/Lymph: no bleeding problems, no anemia, no blood clots, no transfusions. Allergy/Immunologic: no swollen lymph nodes/glands, no IV drug abuse. Other: Additional ROS info: Except as noted in the above Review of Systems and in the History of Present Illness, all other systems have been reviewed and are negative or noncontributory. Physical Exam Vitals & Measurements T: 36.7 ?C (Tympanic) HR: 76(Peripheral) RR: 16 BP: 118/76 HT: 190.5 cm HT: 190.5 cm WT: 132.7 kg WT: 132.7 kg BMI: 36.57 HEENT: normal conjunctiva, sclera clear, no scleral icterus, EOM intact, PERRLA, oral mucosa moist without lesions. Neck: trachea midline, no mass, symmetric, no thyromegaly or nodules, no adenopathy Respiratory: lungs CTA, respirations non labored. Cardiovascular: regular rate and rhythm, no murmur, no pedal edema or varicosities. Gastrointestinal: soft, non distended, no tenderness, no masses, no palpable hernias, diastasis recti no, no hepatosplenomegaly; normal bs Lymphatic: no cervical adenopathy, no axillary adenopathy, no inguinal adenopathy. Musculoskeletal: normal gait, digits and nails without infection, nodes, cyanosis, clubbing. Skin: no rashes, left lower back with 5 mm, raised, verrucous lesion, no pigmentation or ulceration; no ulcers, no subcutaneous nodules, induration. Psychiatric/Neuro: oriented to time, place, person, judgement normal, affect appropriate for age, insight intact, no focal deficits. Tests: review of old records completed, Discussed surgical options, risks, and possible complications with patient. Assessment/Plan 1. Neoplasm of uncertain behavior of skin of back (D48.5: Neoplasm of uncertain behavior of skin) plan excisional biopsy under local anesthesia in the office for definitive diagnosis and treatment; informed consent obtained. 2. BMI 36.0-36.9,adult (Z68.36: Body mass index [BMI] 36.0-36.9, adult) recommend diet and exercise. 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 Medications aspirin 81 mg Chew Tab, Chewed, Daily ferrous sulfate 325 mg oral enteric coated tablet, Oral, Daily furosemide 40 mg Tab, 40 mg= 1 tab(s), Oral, Daily levothyroxine 50 mcg (0.05 mg) Tab, 50 mcg= 1 tab(s), Oral, Daily Metoprolol succinate 50 mg ER Tablet, Oral, Daily potassium chloride 20 mEq ER Tab, 20 mEq= 1 tab(s), Oral, Daily sertraline 50 mg Tab, 50 mg= 1 tab(s), Oral, Daily Allergies No Known Allergies Social History Alcohol Current, Beer, 1-2 times per week, 03/12/2019 Home/Environment Lives with Spouse., 03/12/2019 Tobacco Never (less than 100 in lifetime) Tobacco Use:. Never Smokeless Tobacco Use:. Cigarettes, Yes, 11/29/2020 Family History Cancer: Father. Heart disease: Mother. Hypertension: Mother. Primary malignant neoplasm of female breast: Mother. Immunizations Vaccine Date Status Comments influenza virus vaccine, inactivated - Not Given Patient Refuses [facility] Comment on above: Result Comment: Elec tronically Signed By: BONG ADKINS, Tracie Gonzalez\.br\Date and Time Signed: 11/29/20 14:05 EST Summary Purpose Family History No Family History Records FoundNo Family History Records FoundNo Family History Records FoundNo Family History Records FoundNo Family History Records Found Advance Directives No Advanced Directives Records FoundNo Advanced Directives Records FoundNo Advanced Directives Records FoundNo Advanced Directives Records FoundNo Advanced Directives Records Found Hospital Course Note MR#: [id number] [facility] Pt. Name: Tracie Crain Admitted: 03/14/2019 Discharged: 03/27/2019 Date of : 1965 Physician: Timbo Black MD DISCHARGE SUMMARY HISTORY: This is a 53-year-old male who was transferred from [facility] for further management of new-onset atrial fibrillation and systolic heart failure. Over the past 2 weeks, he had been having symptoms of lower extremity swelling. He denied chest pain and was very short of breath according to the . At [facility], he was noted to have severe pulmonary venous congestion and was transferred to [facility] after echocardiogram revealed reduced left ventricular systolic function. He underwent GERMAN cardioversion for atrial fibrillation and that did not last very long in sinus rhythm. He was also noted to have severe mitral regurgitation due to prolapse of the posterior leaflet. Cardiac Surgery was consulted. PHYSICAL EXAMINATION: VITAL SIGNS: At the time of admission to the hospita (more content not included)... Additional Source Comments (unrecognized sect ion and content) No Status Records FoundNo Status Records FoundNo Status Records FoundNo Status Records FoundNo Status Records Found INFORMATION SOURCE (unrecogn ized section and content) DATE CREATED AUTHOR 03/18/2018 [facility] DATE CREATED AUTHOR AUTHOR'S ORGANIZ ATION 03/02/2020 [facility] DATE CREATED AUTHOR AUTHOR'S ORGANIZ ATION 02/12/2021 [facility] DATE CREATED AUTHOR AUTHOR'S ORGANIZ ATION 02/10/2023 [facility] DATE CREATED AUTHOR AUTHOR'S ORGANIZ ATION 04/09/2023 [facility] FOR RECORDS PERTAINING TO PATIENTS WHO ARE OR HAVE BEEN ENROLLED IN A CHEMICAL DEPENDENCY/SUBSTANCEABUSE PROGRAM, SOME INFORMATION MAY BE OMITTED. This clinical summary was aggregated from multiple sources. Caution should be exercised in using it in the provision of clinical care. This summary normalizes information from multiple sources, and as a consequence, information in this document may materially change the coding, format and clinical context of patient data. In addition, data may be omitted in some cases. CLINICAL DECISIONS SHOULD BE BASED ON THE PRIMARY CLINICAL RECORDS. [employer] provides no warranty or guarantee of the accuracy or completeness of information in this document.
[2023-10-04 14:43] LABS: Anion Gap 10.8; BUN Creatinine Ratio 20.3; Calcium 9.5 mg/dL (8.5-10.1); Chloride 100 mmol/L (98-107); Estimated GFR (African America >60 (>=60); Estimated GFR (Non-African Ame 58 (>=60); Free T3 2.41 pg/mL (2.18-3.98); Glucose 150 mg/dL (74-106); Potassium 3.8 mmol/L (3.5-5.1); Sodium 136 mmol/L (136-145); Thyroid Stimulating Hormone 3.581 uIU/mL (0.358-3.740)
== END 2023-10-04 13:28 | disposition home or self-care (01) ==
LOC: LAB 13:28
PROVIDERS: PCP Family Medicine; Visit Provider Family Medicine
DX: N17.9 Acute kidney failure, unspecified (principal)
CPT/HCPCS: 36415; 80048; 84436; 84443; 84481

== ENCOUNTER 2023-10-18 13:48 | Outpatient (OUT) | payer BC, SELFPAY ==
--- OUTSIDE RECORDS SUMMARY | 2023-10-18 13:52 | XMS_ITS | CCD ---
Author Name Unknown Address [address] [place] [address] [facility] Care Team Providers Care Bead Preparer Name Role Phone TITUS VILLEGAS Referring Unavailable SELF, REFERRED Primary Care Unavailable MASROOR, TIMBO Attending Unavailable JIAN SYED Admitting Unavailable NC Procedure Practitioner Unavailab KRYS De La Torre Surgeon Unavailable NC Procedure Practitioner Unavailab le ILAN CABA Surgeon Unavailable NC Procedure Practitioner Unavailab le HEIDEOR, TIMBO Surgeon Unavailable NC Procedure Practitioner Unavailab MAY De La Rosa [...] [facility] Facility Office Visiton 04-08-2023 Follow-up visit [id number] Tracie Crain 1965 M Date Provider Department Center 04/08/2023 VIET MARIA Family History Problem Relation Age of Onset Atrial fibrillation Mother Alzheimer's disease Mother Family Status - Relation Status Age at Mother Level of Service:44912 NC OFFICE/OUTPATIENT ESTABLISHED MOD MDM 30-39 MIN Normal [facility] Office Visiton 02-11-2023 Follow-up visit [id number] Tracie Crain 1965 M Date Provider Department Center 02/11/2023 VIET MARIA Hos Family History Problem Relation Age of Onset Atrial fibrillation Mother Alzheimer's disease Mother Family Status - Relation Status Age at Mother Level of Service:94286 NC OFFICE/OUTPATIENT ESTABLISHED MOD MDM 30-39 MIN Normal [facility] ECHOCARDIO M/2D COMPLETEon 0 02-05-2023 ECHOCARDIO M/2D COMPLETE Patient: TRACIE CRAIN Exam Date: 02/05/2023 : 1965 Gender:M Ordering : DR VIET SALAS M.D. Admission #: [id number] Family : Order #: [id number] CLICK HERE TO VIEW EXAM ECHOCARDIOGRAM REPORT [...] Jenkins M.D. on 02/05/2023 at 16:31 Normal [facility] BNPon 12-19-2022 Natriuretic peptide B (Bld) [Mass/Vol] 859.0 pg/mL Normal <=900.0 [facility] Comment on above: Performed By: #### B MP, BNP #### [facility] [address] [place] [address] Dr. Leonie Beckham PROF CHEM 8 (BAS METB)on Anion gap [Moles/Vol] 9.9 mmol/L Normal [facility] Comment on above: Performed By: #### B MP, BNP #### [facility] [address] [place] [address] Dr. Leonie Beckham Calcium [Mass/Vol] 9.4 mg/dL Normal 8.5-10.1 [facility] Comment on above: Performed By: #### B MP, BNP #### [facility] [address] [place] [address] Dr. Leonie Beckham Chloride [Moles/Vol] 102 mmol/L Normal 98-107 [facility] Comment on above: Performed By: #### B MP, BNP #### [facility] [address] [place] [address] Dr. Leonie Beckham CO2 [Moles/Vol] 32.0 mmol/L Normal 21.0-32.0 [facility] Comment on above: Performed By: #### B MP, BNP #### [facility] [address] [place] [address] Dr. Leonie Beckham Creatinine [Mass/Vol] 1.17 mg/dL Normal 0.70-1.30 [facility] Comment on above: Performed By: #### B MP, BNP #### [facility] [address] [address] [address] Leonie Beckham EGFR-AF [place]IZ[place] >60 Normal >=60 [facility] Comment on above: Performed By: #### B MP, BNP #### [facility] [address] [address] [address] Leonie Beckham EGFR-NON AF CITIZ[place] >60 Normal >=60 [facility] Comment on above: Performed By: #### B MP, BNP #### [facility] [address] [address] [address] Leonie Beckham Glucose [Mass/Vol] 106 mg/dL Normal 74-106 [facility] Comment on above: Performed By: #### B MP, BNP #### [facility] [address] [address] [address] Leonie Beckham Potassium [Moles/Vol] 3.9 mmol/L Normal 3.5-5.1 [facility] Comment on above: Performed By: #### B MP, BNP #### [facility] [address] [address] [address] Leonie Beckham Sodium [Moles/Vol] 140 mmol/L Normal 136-145 [facility] Comment on above: Performed By: #### B MP, BNP #### [facility] [address] [address] [address] Leonie Beckham Urea nitrogen [Mass/Vol] 25.0 mg/dL Critically high 7.0-18.0 [facility] Comment on above: Performed By: #### B MP, BNP #### [facility] [address] [address] [address] Leonie Beckham Urea nitrogen/Creatinine [Mass ratio] 21.4 mg/mg Normal [facility] Comment on above: Performed By: #### B MP, BNP #### [facility] [address] [address] [address] Leonie Beckham Office Visiton 11-19-2022 Follow-up visit [id number] Tracie Crain 1965 Date Provider Department Center 11/19/2022 VIET MARIA CARD Ricky Hos Family History Problem Relation Age of Onset Atrial fibrillation Mother Alzheimer's disease Mother Family Status - Relation Status Age at Mother Level of Service:53613 NC OFFICE/OUTPATIENT ESTABLISHED MOD MDM 30-39 MIN Reason for Visit and Comments: Congestive Heart Failure [127] Valve Disorder [3372] Normal [facility] ECHOCARDIO M/2D COMPLETEon 0 11-09-2022 ECHOCARDIO M/2D COMPLETE Patient: TRACIE CRAIN Exam Date: 11/09/2022 : 1965 Gender:M Ordering : DR VIET SALAS M.D. Admission #: [id number] Family : TITUS VILLEGAS . Order #: [id number] CLICK HERE TO VIEW EXAM ECHOCARDIOGRAM REPORT [...] Salas M.D. on 11/09/2022 at 16:31 Normal [facility] Office Visiton 10-16-2022 Follow-up visit [id number] Tracie Crain 1965 M Date Provider Department Center 10/16/2022 [id number] URIOSTEGUI [facility] Family History Problem Relation Age of Onset Atrial fibrillation Mother Alzheimer's disease Mother Family Status - Relation Status Age at Mother Level of Service:97755 NC OFFICE/OUTPATIENT ESTABLISHED LOW MDM 20-29 MIN Reason for Visit and Comments: Edema [[id number]] Congestive Heart Failure [127] Atrial Fibrillation [80] Normal [facility] PROF CHEM 8 (BILLY CHRISTIANSEN)on Anion gap [Moles/Vol] 8.0 mmol/L Normal [facility] Comment on above: Performed By: #### B MP #### [facility] [address] [address] [address] Leonie Beckham Calcium [Mass/Vol] 8.6 mg/dL Normal 8.5-10.1 [facility] Comment on above: Performed By: #### B MP #### [facility] [address] [place] [address] Dr. Leonie Beckham Chloride [Moles/Vol] 102 mmol/L Normal 98-107 [facility] Comment on above: Performed By: #### B MP #### [facility] [address] [address] [address] Leonie Beckham CO2 [Moles/Vol] 31.5 mmol/L Normal 21.0-32.0 [facility] Comment on above: Performed By: #### B MP #### [facility] [address] [place] [address] Dr. Leonie Beckham Creatinine [Mass/Vol] 1.13 mg/dL Normal 0.70-1.30 [facility] Comment on above: Performed By: #### B MP #### [facility] [address] [address] [address] Leonie Beckham EGFR-AF CITIZ[place] >60 Normal >=60 [facility] Comment on above: Performed By: #### B MP #### [facility] [address] [address] [address] Leonie Beckham EGFR-NON AF [place]IZ[place] >60 Normal >=60 [facility] Comment on above: Performed By: #### B MP #### [facility] [address] [place] [address] Dr. Leonie Beckham Glucose [Mass/Vol] 100 mg/dL Normal 74-106 [facility] Comment on above: Performed By: #### B MP #### [facility] [address] [address] [address] Leonie Beckham Potassium [Moles/Vol] 3.5 mmol/L Normal 3.5-5.1 [facility] Comment on above: Performed By: #### B MP #### [facility] [address] [address] [address] Leonie Beckham Sodium [Moles/Vol] 138 mmol/L Normal 136-145 [facility] Comment on above: Performed By: #### B MP #### [facility] [address] [address] [address] Leonie Beckham Urea nitrogen [Mass/Vol] 24.0 mg/dL Critically high 7.0-18.0 [facility] Comment on above: Performed By: #### B MP #### [facility] [address] [address] [address] Leonie Beckham Urea nitrogen/Creatinine [Mass ratio] 21.2 mg/mg Normal [facility] Comment on above: Performed By: #### B MP #### [facility] [address] [address] [address] Leonie Beckham ECHOCARDIO M/2D COMPLETEon 0 06-27-2022 ECHOCARDIO M/2D COMPLETE Patient: TRACIE CRAIN Exam Date: 06/27/2022 : 1965 Gender:M Ordering : KAI RUFFIN [facility] Admission #: [id number] Family : DR TITUS VILLEGAS . Order #: [id number] CLICK HERE TO VIEW EXAM ECHOCARDIOGRAM REPORT [...] Salas M.D. on 06/27/2022 at 18:23 Normal [facility] VC CONSULT FOLLOWUPon 2021 VC CONSULT FOLLOWUP Patient: TRACIE CRAIN Exam Date: 06/13/2022 : 1965 Gender:M Ordering : DR MELIDA CUELLAR M.D. Admission #: [id number] Family : Order #: [id number] CLICK HERE TO VIEW EXAM RADIOLOGY REPORT [...] Cuellar MD on 06/13/2022 at 14:59 Normal [facility] VC EXT VENOUS RT LIMITEDon 0 06-13-2022 VC EXT VENOUS RT LIMITED Patient: TRACIE CRAIN Exam Date: 06/13/2022 : 1965 Gender:M Ordering : DR MELIDA CUELLAR M.D. Admission #: [id number] Family : Order #: [id number] CLICK HERE TO VIEW EXAM RADIOLOGY REPORT [...] veins in the medial right leg. Associated hide dropper distal medial also thrombosed 3.1 mm from [...] Cuellar MD on 06/13/2022 at 15:42 Normal [facility] VC INJ FOAM SCLERO W US MLTI on 06-07-2022 VC INJ FOAM SCLERO W US MLTI Patient: TRACIE CRAIN. Exam Date: 06/07/2022 : 1965 Gender:M Ordering : DR MELIDA CUELLAR M.D. Admission #: [id number] Family : Order #: [id number] CLICK HERE TO VIEW EXAM RADIOLOGY REPORT [...] for (more content not included)... Normal [facility] VC CONSULT FOLLOWUPon 2021 VC CONSULT FOLLOWUP Patient: TRACIE CRAIN Exam Date: 06/01/2022 : 1965 Gender:M Ordering : DR MELIDA CUELLAR M.D. Admission #: [id number] Family : Order #: [id number] CLICK HERE TO VIEW EXAM RADIOLOGY REPORT [...] MD on 06/01/2022 at 09:48 Normal [facility] VC EXT VENOUS LT LIMITEDon 0 06-01-2022 VC EXT VENOUS LT LIMITED Patient: TRACIE CRAIN Exam Date: 06/01/2022 : 1965 Gender:M Ordering : DR MELIDA CUELLAR M.D. Admission #: [id number] Family : Order #: [id number] CLICK HERE TO VIEW EXAM RADIOLOGY REPORT [...] Cuellar MD on 06/01/2022 at 09:29 Normal [facility] VC INJ FOAM SCLERO W US MLTI on 05-25-2022 VC INJ FOAM SCLERO W US MLTI Patient: TRACIE CRAIN Exam Date: 05/25/2022 : 1965 Gender:M Ordering : DR MELIDA CUELLAR M.D. Admission #: [id number] Family : Order #: [id number] CLICK HERE TO VIEW EXAM RADIOLOGY REPORT [...] Aguilar M.D. on 05/25/2022 at 11:44 Normal [facility] VC CONSULT FOLLOWUPon 2021 VC CONSULT FOLLOWUP Patient: TRACIE CRAIN Exam Date: 05/14/2022 : 1965 Gender:M Ordering : DR MELIDA CUELLAR M.D. Admission #: [id number] Family : Order #: [id number] CLICK HERE TO VIEW EXAM RADIOLOGY REPORT [...] Aguilar M.D. on 05/14/2022 at 09:41 Normal [facility] VC EXT VENOUS RT LIMITEDon 0 05-14-2022 VC EXT VENOUS RT LIMITED Patient: TRACIE CRAIN. Exam Date: 05/14/2022 : 1965 Gender:M Ordering : DR MELIDA CUELLAR M.D. Admission #: [id number] Family : Order #: [id number] CLICK HERE TO VIEW EXAM RADIOLOGY REPORT [...] Aguilar M.D. on 05/14/2022 at 09:35 Normal [facility] VC ENDOVENOUS ABL PERFORATIN G RTon 05-10-2022 VC ENDOVENOUS ABL PERFORATING RT Patient: LOUANNRENO AGUEDA. Exam Date: 05/10/2022 : 1965 Gender:M Ordering : DR MELIDA CUELLAR M.D. Admission #: [id number] Family : Order #: [id number] CLICK HERE TO VIEW EXAM RADIOLOGY REPORT PROCEDURE: VEIN [place] ENDOVENOUS ABLATION FOR VEIN RIGHT GREAT SAPHENOUS VEIN COMPARISON: None. INDICATIONS: Pain co-occurrent and due to varicose veins of bilateral legs I83.813 OPERATIVE REPORT: Diagnosis: Superficial venous reflux, incompetent perforating veins Procedure: Endovenous laser ablation of the left hide dropper(s) Procedure: The patient was positioned supine on [...] Cuellar MD on 05/10/2022 at 10:50 Normal [facility] VC CONSULT FOLLOWUPon 2021 VC CONSULT FOLLOWUP Patient: TRACIE CRAIN Exam Date: 05/04/2022 : 1965 Gender:M Ordering : DR MELIDA CUELLAR M.D. Admission #: [id number] Family : Order #: [id number] CLICK HERE TO VIEW EXAM RADIOLOGY REPORT [...] Aguilar M.D. on 05/04/2022 at 08:38 Normal [facility] VC EXT VENOUS LT LIMITEDon 0 05-04-2022 VC EXT VENOUS LT LIMITED Patient: TRACIE CRAIN Exam Date: 05/04/2022 : 1965 Gender:M Ordering : DR MELIDA CUELLAR M.D. Admission #: [id number] Family : Order #: [id number] CLICK HERE TO VIEW EXAM RADIOLOGY REPORT [...] M.D. on 05/04/2022 at 08:31 Approved by: Lydna Aguilar M.D. on 05/04/2022 at 08:32 Normal [facility] VC ENDOVENOUS ABL 1ST V LTon 04-27-2022 VC ENDOVENOUS ABL 1ST V LT Patient: TRACIE CRAIN Exam Date: 04/27/2022 : 1965 Gender:M Ordering : DR MELIDA CUELLAR M.D. Admission #: [id number] Family : Order #: [id number] CLICK HERE TO VIEW EXAM RADIOLOGY REPORT [...] M.D. on 04/27/2022 at 10:32 Normal [facility] CBC AUTO DIFFon 04-05-2022 BASO # 0.1 103/ul Normal 0.0-0.1 [facility] Comment on above: Performed By: #### C BC ####[facility] [address] [address]Dr. Kaleighlan Beckham Basophils/100 WBC (Bld) 1.2 % Normal 0.2-2.0 [facility] Comment on above: Performed By: #### C BC ####[facility] [address] [address]Dr. Yilan Beckham EO # 0.3 103/ul Normal 0.0-0.7 [facility] Comment on above: Performed By: #### C BC ####[facility] [address] [address]Dr. Yilan Beckham Eosinophils/100 WBC (Bld) 3.9 % Normal 0.9-7.0 [facility] Comment on above: Performed By: #### C BC ####[facility] [address] [place], [place] [address]Dr. Leonie Beckham Erythrocyte distribution width (RBC) [Ratio] 13.2 % Normal 11.0-15.0 [facility] Comment on above: Performed By: #### C BC ####[facility] [address] [place], [place] [address]Dr. Leonie Beckham Hematocrit (Bld) [Volume fraction] 43.5 % Normal 42.0-54.0 [facility] Comment on above: Performed By: #### C BC ####[facility] [address] [place], [place] [address]Dr. Kaleighjacob Beckham Hemoglobin (Bld) [Mass/Vol] 13.9 g/dL Critically low 14.0-18.0 [facility] Comment on above: Performed By: #### C BC ####[facility] [address] [place], [place] [address]Dr. Leonie Beckham IG # 0.03 10e3/ul Normal 0.00-0.03 [facility] Comment on above: Performed By: #### C BC ####[facility] [address] [place], [place] [address]Dr. Kaleighjacob Beckham IG % 0.4 % Normal 0.0-0.5 [facility] Comment on above: Performed By: #### C BC ####[facility] [address] [place], [place] [address]Dr. Leonie Beckham LYMPH # 2.0 103/ul Normal 1.2-3.8 [facility] Comment on above: Performed By: #### C BC ####[facility] [address] [place], [place] [address]Dr. Leonie Beckham Lymphocytes/100 WBC (Bld) 25.0 % Normal 20.5-60.0 [facility] Comment on above: Performed By: #### C BC ####[facility] [address] [place], [place] [address]Dr. Leonie Beckham MANUAL DIFF REQ NO Normal [facility] Comment on above: Performed By: #### C BC ####[facility] [address] [place], [place] [address]Dr. Leonie Beckham MCH (RBC) [Entitic mass] 30.2 pg Normal 25.9-34.0 [facility] Comment on above: Performed By: #### C BC ####[facility] [address] [address]Dr. Leonie Beckham MCHC (RBC) [Mass/Vol] 32.0 g/dL Normal 29.9-35.2 [facility] Comment on above: Performed By: #### C BC ####[facility] [address] [address]Dr. Leonie Chapincito MCV (RBC) [Entitic vol] 94.4 fL Critically high 80.0-94.0 [facility] Comment on above: Performed By: #### C BC ####[facility] [address] [address]Dr. Leonie Chapincito MONO # 1.0 103/ul Critically high 0.3-0.8 [facility] Comment on above: Performed By: #### C BC ####[facility] [address] [place], [place] [address]Dr. Kaleighjacob Beckham Monocytes/100 WBC (Bld) 12.0 % Normal 1.7-12.0 [facility] Comment on above: Performed By: #### C BC ####[facility] [address] [place], [place] [address]Dr. Leonie Beckham NEUT # 4.6 103/ul Normal 1.4-6.5 [facility] Comment on above: Performed By: #### C BC ####[facility] [address] [place], [place] [address]Dr. Kaleighjacob Beckham Neutrophils/100 WBC (Bld) 57.5 % Normal 43.0-75.0 [facility] Comment on above: Performed By: #### C BC ####[facility] [address] [address]Dr. Kaleighjacob Beckham Platelet mean volume (Bld) [Entitic vol] 9.4 fL Critically low 9.5-13.5 [facility] Comment on above: Performed By: #### C BC ####[facility] [address] [place], [place] [address]Jw. Leonie Beckham PLT 203 103/ul Normal 150-450 [facility] Comment on above: Performed By: #### C BC ####[facility] [address] [place], [place] [address]Cb. Leonie Beckham RBC 4.61 106/ul Critically low 4.70-6.10 [facility] Comment on above: Performed By: #### C BC ####[facility] [address] [address]Dr. Leonie Beckham WBC 8.0 103/ul Normal 4.0-11.0 [facility] Comment on above: Performed By: #### C BC ####[facility] [address] [address]Dr. Leonie Beckham FREE T3on 04-05-2022 FREE T3 2.54 pg/mlL Normal 2.18-3.98 [facility] Comment on above: Performed By: #### T SH, LIPID, CMP, T4, FT3 ####[facility] [address] [id number]. Leonie Beckham GLYCOHEMOGLOBIN A1Con 2021 ADA RECOMMENDATION SEE BELOW Normal [facility] Comment on above: Result Comment: ADA RECOMMENDED LIMIT 4.0 - 6.0 ADA THERAPEUTIC TARGET < 7.0 ACTION SUGGESTED > 7.0 Performed By: #### A 1C ####[facility] [address] [id number]. Leonie Beckham Glucose [Mass/Vol] 126 mg/dL Normal [facility] Comment on above: Performed By: #### A 1C ####[facility] [address] [address]Dr. Leonie Beckham HbA1c (Bld) [Mass fraction] 6.0 % Normal 4.5-6.2 [facility] Comment on above: Performed By: #### A 1C ####[facility] [address] [id number]. Leonie Beckham LIPID PROFILEon 04-05-2022 CHOL-HDL RATIO NORM SEE BELOW Normal [facility] Comment on above: Result Comment: 3.3 - 4.4 LOW RISK 4.4 - 7.1 AVERAGE RISK 7.1 - 11.0 MODERATE RISK >11.0 HIGH RISK Performed By: #### T SH, LIPID, CMP, T4, FT3 ####[facility] [address] [address]Dr. Leonie Beckham Cholesterol [Mass/Vol] 137 mg/dL Normal <=200 [facility] Comment on above: Performed By: #### T SH, LIPID, CMP, T4, FT3 ####[facility] [address] [id number]. Leonie Beckham Cholesterol in HDL [Mass/Vol] 40 mg/dL Normal 40-60 [facility] Comment on above: Performed By: #### T SH, LIPID, CMP, T4, FT3 ####[facility] [address] [address]Dr. Leonie Beckham Cholesterol in LDL [Mass/Vol] 84.0 mg/dL Normal [facility] Comment on above: Performed By: #### T SH, LIPID, CMP, T4, FT3 ####[facility] [address] [address]Dr. Leonie Beckham Cholesterol.total/Ch olesterol in HDL [Mass ratio] 3.4 {ratio} Normal [facility] Comment on above: Performed By: #### T SH, LIPID, CMP, T4, FT3 ####[facility] [address] [id number]. Kaleighjacob Beckham HDL NORMAL > or = 60 mg/dl - LO W CARDIOVASCULAR RISK <40 mg/dl - HIGH CARDIOVASCULAR RISK Normal [facility] Comment on above: Performed By: #### T SH, LIPID, CMP, T4, FT3 ####[facility] [address] [address]Dr. Kaleighjacob Beckham LDL CALC NORMAL SEE BELOW Normal [facility] Comment on above: Result Comment: <100 mg/dl OPTIMAL 100 - 129 mg/dl NEAR OR ABOVE OPTIMAL 130 - 159 mg/dl BORDERLINE HIGH 160 - 189 mg/dl HIGH >190 mg/dl VERY HIGH Performed By: #### T SH, LIPID, CMP, T4, FT3 ####[facility] [address] [place] [address]Dr. Leonie Beckham Triglyceride [Mass/Vol] 65 mg/dL Normal <=150 [facility] Comment on above: Performed By: #### T SH, LIPID, CMP, T4, FT3 ####[facility] Yoydsnbcvo[address] [place] [address]Dr. Leonie Beckham VLDL CALC 13.0 mg/dL Normal [facility] Comment on above: Performed By: #### T SH, LIPID, CMP, T4, FT3 ####[facility] Uidteaaslg[address] [place] [address]Dr. Leonie Beckham PROF 14(COMP METB)on 022 Albumin [Mass/Vol] 3.8 g/dL Normal 3.4-5.0 [facility] Comment on above: Performed By: #### T SH, LIPID, CMP, T4, FT3 ####[facility] Wngqwgfipi[address] [place] [address]Dr. Leonie Beckham Albumin/Globulin [Mass ratio] 1.2 {ratio} Normal [facility] Comment on above: Performed By: #### T SH, LIPID, CMP, T4, FT3 ####[facility] [address]hq[address]eoac[address] [place] [address]Dr. Leonie Beckham ALP [Catalytic activity/Vol] 81 U/L Normal 46-116 [facility] Comment on above: Performed By: #### T SH, LIPID, CMP, T4, FT3 ####[facility] Qmexylgvzp[address] [place] [address]Dr. Leonie Beckham ALT [Catalytic activity/Vol] 35 U/L Normal 16-63 [facility] Comment on above: Performed By: #### T SH, LIPID, CMP, T4, FT3 ####[facility] Hviqpquudy[address] [place] [address]Dr. Leonie Beckham Anion gap [Moles/Vol] 10.8 mmol/L Normal [facility] Comment on above: Performed By: #### T SH, LIPID, CMP, T4, FT3 ####[facility] Pmizrjblaz[address] [place] [address]Dr. Leonie Beckham AST [Catalytic activity/Vol] 22 U/L Normal 15-37 The [facility] Comment on above: Performed By: #### T SH, LIPID, CMP, T4, FT3 ####[facility] Apljfadpvw[address] [place] [address]Dr. Leonie Beckham Bilirubin [Mass/Vol] 1.1 mg/dL Critically high 0.2-1.0 [facility] Comment on above: Performed By: #### T SH, LIPID, CMP, T4, FT3 ####[facility] Xrybcaqsbt[address] [place] [address]Dr. Leonie Beckham Calcium [Mass/Vol] 8.6 mg/dL Normal 8.5-10.1 [facility] Comment on above: Performed By: #### T SH, LIPID, CMP, T4, FT3 ####[facility] [address]frl[address] [place], [place] [address]Dr. Leonie Beckham Chloride [Moles/Vol] 105 mmol/L Normal 98-107 [facility] Comment on above: Performed By: #### T SH, LIPID, CMP, T4, FT3 ####[facility] Vhkdmrdmms[address] [place] [address]Dr. Leonie Beckham CO2 [Moles/Vol] 28.2 mmol/L Normal 21.0-32.0 [facility] Comment on above: Performed By: #### T SH, LIPID, CMP, T4, FT3 ####[facility] [address] [place], [place] [address]Dr. Leonie Beckham Creatinine [Mass/Vol] 1.33 mg/dL Critically high 0.70-1.30 The [facility] Comment on above: Performed By: #### T SH, LIPID, CMP, T4, FT3 ####[facility] Etoczttyqd[address] [place] [address]Dr. Leonie Beckham EGFR-AF [place] >60 Normal >=60 [facility] Comment on above: Performed By: #### T SH, LIPID, CMP, T4, FT3 ####[facility] [address]vrynqjvfi[address] [place] [address]Dr. Leonie Beckham EGFR-NON AF [place]IZ[place] 55 mL/min/1.73m2 Critically low >=60 The [facility] Comment on above: Performed By: #### T SH, LIPID, CMP, T4, FT3 ####[facility] Coqusvaneu[address] [place] [address]Dr. Leonie Beckham Globulin (S) [Mass/Vol] 3.3 g/dL Normal [facility] Comment on above: Performed By: #### T SH, LIPID, CMP, T4, FT3 ####[facility] [address]vkonhrzpv[address] [place] [address]Dr. Leonie Beckham Glucose [Mass/Vol] 94 mg/dL Normal 74-106 [facility] Comment on above: Performed By: #### T SH, LIPID, CMP, T4, FT3 ####[facility] Sbkhkoxdga[address] [place] [address]Dr. Leonie Beckham Potassium [Moles/Vol] 4.0 mmol/L Normal 3.5-5.1 The [facility] Comment on above: Performed By: #### T SH, LIPID, CMP, T4, FT3 ####[facility] Bllwuvpryr[address] [place] [address]Dr. Leonie Beckham Protein [Mass/Vol] 7.1 g/dL Normal 6.4-8.2 The [facility] Comment on above: Performed By: #### T SH, LIPID, CMP, T4, FT3 ####[facility] Dlrqzhhchw[address] [place] [address]Dr. Leonie Beckham Sodium [Moles/Vol] 140 mmol/L Normal 136-145 The [facility] Comment on above: Performed By: #### T SH, LIPID, CMP, T4, FT3 ####[facility] [address]zhycyidlf[address] [place] [address]Dr. Leonie Beckham Urea nitrogen [Mass/Vol] 24.0 mg/dL Critically high 7.0-18.0 The [facility] Comment on above: Performed By: #### T SH, LIPID, CMP, T4, FT3 ####[facility] [address] [place], [place] [address]Zr. Leonie Beckham Urea nitrogen/Creatinine [Mass ratio] 18.0 mg/mg Normal The [facility] Comment on above: Performed By: #### T SH, LIPID, CMP, T4, FT3 ####[facility] [address] [place], [place] [address]On. Leonie Beckham T4on 04-05-2022 T4 [Mass/Vol] 7.70 ug/dL Normal 4.50-12.10 The [facility] Comment on above: Performed By: #### T SH, LIPID, CMP, T4, FT3 ####[facility] Wjnjseacpp[address] [place] [id number]. Leonie Beckham TSHon 04-05-2022 TSH 3.042 uIU/mL Normal 0.358-3.740 [facility] Comment on above: Performed By: #### T SH, LIPID, CMP, T4, FT3 ####[facility] [address] [place], [place] [address]By. Leonie Beckham VC COMP CONSULTATIONon 03-08 VC COMP CONSULTATION Patient: TRACIE CRAIN Exam Date: 03/08/2022 : 1965 Gender:M Ordering : DR TIUTS VILLEGAS . 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 The [...] 03/08/2022 a (more content not included)... Normal [facility] Ambulatory Clinical Summaryo n 12-20-2020 Ambulatory Clinical Summary {[id number] Normal [facility] Coding Summary.on 12-20-2020 Coding Summary. CODING DATE: 12/19/2020 FINAL [facility] STATUS: Home (Routine DC) PAYOR: Commercial Insurance [...] CphT Date Saved: 12/19/2020 11:58 pm Normal [facility] General Surgery Office/Clini c Noteon 12-20-2020 General [...] if problems/questions. Follow-up With When Contact Information BOGN ADKINS, Tracie [place] [address]- Additional Instructions: Problem List/Past Medical [...] inactivated - Not Given Patient Refuses Normal [facility] Comment on above: Result Comment: Elec tronically Signed By: BONG ADKINS, Tracie Sarah\Date and Time Signed: 12/20/20 15:58 EDT Ambulatory Clinical Summaryo n 12-09-2020 Ambulatory Clinical Summary {[id number]}CD:[id number] Normal [facility] General Surgery Office/Clini c Noteon 12-09-2020 General [...] vaccine, inactivated - Not Given Patient Refuses [facility] Comment on above: Result Comment: Elec tronically Signed By: BONG ADKINS, Tracie R\.br\Date and Time Signed: 12/09/20 09:30 EST Provider Letter FTon 11-30 Provider Letter [facility] [place] Villegas, [address] [place] [address] Re: TRACIE CRAIN Date of : 1965 Thank you for your referral of Tracie Crain who was seen on consultation on November 29, 2020, for growth on left lower back that is changing. An excisional biopsy is planned. I have enclosed my consultation notes for your review. I will be happy to follow Tracie. Sincerely, Tracie Tate MD General Surgery [facility] Ambulatory Clinical Summaryo n 11-29-2020 Ambulatory Clinical Summary {[id number]}CD:[id number] [facility] Physician Referralon 021 Physician Referral [id number] 0CD:127 [facility] Operative Reporton 9 Operative Report MR#: [id number] S [facility] Pt. Name: Tracie Crain Room #: [...] form. 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 [address] [id number] Timbo Black MD [address] [facility] [address] Normal The [facility] BASIC METABOLIC PANELon 07 Calcium [Mass/Vol] 9.4 mg/dL Normal 8.6-10.3 [facility] Comment on above: Performed By: #### 0 0121, 25394, 31671, 00794, 94017 #### [facility] [address] [place] [address], [facility] Chloride [Moles/Vol] 99 mmol/L Normal 98-107 The [facility] Comment on above: Performed By: #### 0 0121, 41045, 59838, 24828, 24923 #### [facility] [address] [place] [address], [place] CO2 [Moles/Vol] 31 mmol/L Normal 21-31 [facility] Comment on above: Performed By: #### 0 0121, 19758, 22247, 93590, 88780 #### [facility] [address] [place] [address], [place] Creatinine [Mass/Vol] 1.22 mg/dL Normal 0.70-1.30 [facility] Comment on above: Performed By: #### 0 0121, 41624, 32287, 51242, 95449 #### [facility] [address] [place] [address], [place] GFR/1.73 sq M predicted among blacks MDRD (S/P/Bld) [Vol rate/Area] mL/min/{1.73_m2} Normal >60 [facility] Comment on above: Performed By: #### 0 0121, 64128, 20848, 87242, 83573 #### [facility] [address] [place] [address], [place] GFR/1.73 sq M predicted among non-blacks MDRD (S/P/Bld) [Vol rate/Area] mL/min/{1.73_m2} Normal >60 [facility] Comment on above: Performed By: #### 0 0121, 34276, 31736, 61807, 02468 #### [facility] [address] [place] [address], [place] Glucose [Mass/Vol] 126 mg/dL High 70-100 [facility] Comment on above: Performed By: #### 0 0121, 29868, 08213, 89148, 31792 #### [facility] [address] [place] [address], [place] Potassium [Moles/Vol] 3.8 mmol/L Normal 3.5-5.1 The [facility] Comment on above: Performed By: #### 0 0121, 14212, 48338, 58406, 30253 #### [facility] [address] [facility] Sodium [Moles/Vol] 139 mmol/L Normal 136-145 [facility] Comment on above: Performed By: #### 0 0121, 43228, 96300, 20156, 28527 #### [facility] [address] Urea nitrogen [Mass/Vol] 15 mg/dL Normal 7-25 The [facility] Comment on above: Performed By: #### 0 0121, 78465, 56213, 16205, 79876 #### [facility] [address] [facility]. [address] BNP (B-TYPE NATRIURETIC PEPT PACHECO)on 04-07-2019 Natriuretic peptide B (Bld) [Mass/Vol] 502 pg/mL High 0-100 [facility] Comment on above: Result Comment: Give n the appropriate clinical setting a BNP result of >100 pg/mL indicates congestive heart failure. Performed By: #### 0 0121, 77438, 18721, 37515, 09668 #### [facility] [address] [facility]. [address] CBC W/DIFFon 04-07-2019 ABS BASOPHILS 0.1 10*3/uL Normal 0.0-0.2 The [facility] Comment on above: Performed By: #### 0 0121, 71250, 46302, 93672, 63039 #### [facility] [address] [facility]. [address] ABS IMM GRANS 0.0 10*3/uL Normal 0.0-0.2 The [facility] Comment on above: Performed By: #### 0 0121, 08834, 41605, 01839, 88472 #### [facility] [address] [place] [address], [facility] ABS NEUTROPHILS 5.1 10*3/uL Normal 1.6-7.6 [facility] Comment on above: Performed By: #### 0 0121, 21197, 05376, 02512, 62999 #### [facility] [address] [place] [address], [facility] Basophils/100 WBC (Bld) 1.5 % High 0.0-1.0 The [facility] Comment on above: Performed By: #### 0 0121, 99121, 74557, 93981, 72447 #### [facility] [address] [place] [address], [facility] Eosinophils (Bld) [#/Vol] 0.3 10*3/uL Normal 0.0-0.5 [facility] Comment on above: Performed By: #### 0 0121, 32831, 32188, 91050, 67863 #### [facility] [address] [place] [address], [facility] Eosinophils/100 WBC (Bld) 3.7 % Normal 0.0-6.0 The [facility] Comment on above: Performed By: #### 0 0121, 32739, 95592, 83185, 37773 #### [facility] [address] [place] [address], [facility] Erythrocyte distribution width (RBC) [Ratio] 13.2 % Normal 11.5-15.0 The [facility] Comment on above: Performed By: #### 0 0121, 50041, 56297, 43747, 24799 #### [facility] [address] [facility] [place] [id number], [facility] Hematocrit (Bld) [Volume fraction] 39.2 % Normal 39.0-50.0 The [facility] Comment on above: Performed By: #### 0 0121, 74441, 39224, 61480, 20160 #### [facility] [address] [facility] [place] [place] [address], [facility] Hemoglobin (Bld) [Mass/Vol] 12.4 g/dL Low 13.0-17.0 The [facility] Comment on above: Performed By: #### 0 0121, 33990, 91794, 80457, 09685 #### [facility] [address] [facility] [place] [place] [address], [facility] IMMATURE GRANS 0.4 % Normal 0.0-1.0 The [facility] Comment on above: Performed By: #### 0 0121, 12387, 17583, 08530, 30429 #### [facility] [address] [place] [address], [facility] Lymphocytes (Bld) [#/Vol] 1.7 10*3/uL Normal 1.2-4.0 The [facility] Comment on above: Performed By: #### 0 0121, 80483, 69305, 05699, 95291 #### [facility] [address] Lymphocytes/100 WBC (Bld) 21.2 % Normal 20.0-45.0 The [facility] Comment on above: Performed By: #### 0 0121, 60509, 83313, 90277, 21999 #### [facility] [address] [facility] [place] [address], [facility] MCH (RBC) [Entitic mass] 28.8 pg Normal 27.0-33.0 The [facility] Comment on above: Performed By: #### 0 0121, 48087, 79015, 36611, 99131 #### [facility] [address] [place] [address], [facility] MCHC (RBC) [Mass/Vol] 31.6 g/dL Low 32.0-35.0 The [facility] Comment on above: Performed By: #### 0 0121, 16335, 36724, 95550, 26201 #### [facility] [address] [place] [address], [facility] MCV (RBC) [Entitic vol] 91.0 fL Normal 82.0-98.0 The [facility] Comment on above: Performed By: #### 0 0121, 82906, 26610, 46679, 85309 #### [facility] [address] [place] [address], [facility] Monocytes (Bld) [#/Vol] 0.9 10*3/uL Normal 0.1-1.0 The [facility] Comment on above: Performed By: #### 0 0121, 04032, 97633, 31953, 52922 #### [facility] [address] [place] [address], [facility] MONOS 10.6 % Normal 5.0-12.0 The [facility] Comment on above: Performed By: #### 0 0121, 48645, 96292, 03974, 96873 #### [facility] [address] [facility] [place] [address], [facility] Neutrophils/100 WBC (Bld) 62.6 % Normal 40.0-72.0 The [facility] Comment on above: Performed By: #### 0 0121, 15628, 98135, 13233, 78037 #### [facility] [address] [facility] [place] [address], [facility] Nucleated RBC/100 WBC (Bld) [Ratio] 0 % Normal 0-0 The [facility] Comment on above: Performed By: #### 0 0121, 96676, 15699, 54162, 29246 #### [facility] [address] [place] [address], [facility] PLAT CNT 520 10*3/uL High 150-400 The [facility] Comment on above: Performed By: #### 0 0121, 70312, 45474, 42351, 33561 #### [facility] [address] [place] [address], [facility] RBC (Bld) [#/Vol] 4.31 10*6/uL Normal 4.20-5.70 The [facility] Comment on above: Performed By: #### 0 0121, 80414, 23754, 30141, 18189 #### [facility] [address] [place] [address], [facility] WBC (Bld) [#/Vol] 8.20 10*3/uL Normal 4.00-10.60 The [facility] Comment on above: Performed By: #### 0 0121, 12318, 82434, 45074, 12945 #### [facility] [address] HEMOGLOBINon 04-07-2019 Hemoglobin (Bld) [Mass/Vol] CANCELED Normal 13.0-17.0 The [facility] Comment on above: Result Comment: The released value 12.3 was canceled by OCREEGER on 04/07/2019 12:48 Performed By: #### 0 0121, 37468, 75168, 00876, 28545 #### [facility] [address] BASIC METABOLIC PANELon 06-2 Calcium [Mass/Vol] 9.0 mg/dL Normal 8.6-10.3 The [facility] [place] [facility] Comment on above: Order Comment: No: D o not add to previous draw Performed By: #### 0 0121, 33755, 02282, 64413, 94295 #### [facility] [address] [place] [id number], [facility] Chloride [Moles/Vol] 98 mmol/L Normal 98-107 The [facility] Comment on above: Order Comment: No: D o not add to previous draw Performed By: #### 0 0121, 97820, 32046, 18027, 81583 #### [facility] [address] [place] [address], [facility] CO2 [Moles/Vol] 29 mmol/L Normal 21-31 [facility] Comment on above: Order Comment: No: D o not add to previous draw Performed By: #### 0 0121, 80019, 40455, 37258, 00355 #### [facility] [address] [place] [address], [place] Creatinine [Mass/Vol] 1.00 mg/dL Normal 0.70-1.30 [facility] Comment on above: Order Comment: No: D o not add to previous draw Performed By: #### 0 0121, 81207, 31187, 22360, 06035 #### [facility] [address] [place] [address], [place] GFR/1.73 sq M predicted among blacks MDRD (S/P/Bld) [Vol rate/Area] mL/min/{1.73_m2} Normal >60 [facility] Comment on above: Order Comment: No: D o not add to previous draw Performed By: #### 0 0121, 75874, 40527, 02982, 95115 #### [facility] [address] [place] [address], [facility] GFR/1.73 sq M predicted among non-blacks MDRD (S/P/Bld) [Vol rate/Area] mL/min/{1.73_m2} Normal >60 The [facility] Comment on above: Order Comment: No: D o not add to previous draw Performed By: #### 0 0121, 53319, 87343, 74905, 75337 #### [facility] [address] [place] [address], [place] Glucose [Mass/Vol] 96 mg/dL Normal 70-100 [facility] Comment on above: Order Comment: No: D o not add to previous draw Performed By: #### 0 0121, 31916, 86547, 76805, 87434 #### [facility] [address] [place] [address], [place] Potassium [Moles/Vol] 3.1 mmol/L Low 3.5-5.1 The [facility] Comment on above: Order Comment: No: D o not add to previous draw Performed By: #### 0 0121, 29914, 31152, 54904, 73313 #### [facility] [address] [place] [address], [place] Sodium [Moles/Vol] 138 mmol/L Normal 136-145 The [facility] [place] [facility] Comment on above: Order Comment: No: D o not add to previous draw Performed By: #### 0 0121, 30024, 64135, 05784, 01919 #### [facility] [address] [place] [address], [place] Urea nitrogen [Mass/Vol] 24 mg/dL Normal 7-25 [facility] Comment on above: Order Comment: No: D o not add to previous draw Performed By: #### 0 0121, 00313, 88496, 82193, 76732 #### [facility] [address] [place] [address], [facility] CBC COMPLETE BLOOD COUNTon 0 - Erythrocyte distribution width (RBC) [Ratio] 13.6 % Normal 11.5-15.0 The [facility] Comment on above: Order Comment: No: D o not add to previous draw Performed By: #### 0 0121, 47035, 76372, 22478, 92943 #### [facility] [address] [place] [address], [place] Hematocrit (Bld) [Volume fraction] 34.7 % Low 39.0-50.0 The [facility] Comment on above: Order Comment: No: D o not add to previous draw Performed By: #### 0 0121, 58019, 52277, 90354, 38970 #### [facility] [address] [place] [address], [place] Hemoglobin (Bld) [Mass/Vol] 11.3 g/dL Low 13.0-17.0 The [facility] Comment on above: Order Comment: No: D o not add to previous draw Performed By: #### 0 0121, 00939, 75489, 54505, 95794 #### [facility] [address] [place] [address], [facility] MCH (RBC) [Entitic mass] 28.8 pg Normal 27.0-33.0 The [facility] Comment on above: Order Comment: No: D o not add to previous draw Performed By: #### 0 0121, 75713, 60739, 97249, 22509 #### [facility] [address] [facility]. [address] MCHC (RBC) [Mass/Vol] 32.6 g/dL Normal 32.0-35.0 The [facility] Comment on above: Order Comment: No: D o not add to previous draw Performed By: #### 0 0121, 22642, 27063, 90244, 17880 #### [facility] [address] [facility] MCV (RBC) [Entitic vol] 88.5 fL Normal 82.0-98.0 The [facility] Comment on above: Order Comment: No: D o not add to previous draw Performed By: #### 0 0121, 42089, 98368, 94736, 96370 #### [facility] [address] Nucleated RBC/100 WBC (Bld) [Ratio] 0 % Normal 0-0 The [facility] Comment on above: Order Comment: No: D o not add to previous draw Performed By: #### 0 0121, 08732, 88309, 24851, 28519 #### [facility] [address] [place] [address], [facility] PLAT CNT 205 10*3/uL Normal 150-400 The [facility] Comment on above: Order Comment: No: D o not add to previous draw Performed By: #### 0 0121, 80930, 06588, 74300, 58314 #### [facility] [address] [place] [address], [place] RBC (Bld) [#/Vol] 3.92 10*6/uL Low 4.20-5.70 The [facility] Comment on above: Order Comment: No: D o not add to previous draw Performed By: #### 0 0121, 40594, 38668, 04791, 24317 #### [facility] [address] [place] [address], [place] WBC (Bld) [#/Vol] 11.83 10*3/uL High 4.00-10.60 The [facility] Comment on above: Order Comment: No: D o not add to previous draw Performed By: #### 0 0121, 08957, 21203, 55981, 93048 #### [facility] [address] [place] [address], [place] MAGNESIUM BLOODon 03-27-2019 Magnesium [Mass/Vol] 2.3 mg/dL Normal 1.9-2.7 [facility] Comment on above: Order Comment: No: D o not add to previous draw Performed By: #### 0 0121, 66657, 55847, 00940, 34767 #### [facility] [address] [place] [address], [place] POC GLUCOSE LABon 03-27-2019 Glucose [Mass/Vol] 115 mg/dL High 70-100 The [facility] Comment on above: Performed By: #### 0 0121, 09302, 28101, 60280, 66608 #### [facility] [address] [place] [address], [place] Glucose [Mass/Vol] 96 mg/dL Normal 70-100 The [facility] Comment on above: Performed By: #### 0 0121, 70138, 29210, 16810, 51753 #### [place] [address], [facility] PORTABLE CHEST 1 VIEWon 03-01 PORTABLE CHEST 1 VIEW [facility] Department of Radiology [address] [place] [id number] ======== Patient Name: TRACIE CRAIN : 1965 Sex: M Age: Race: NA Pt. Location: [id number] Patient Status: I Ordered Date: 03/27/2019 5:00:00 [...] findings. Electronically signed by:Divya Collins. Transcribed by: [email or web address], User Resident: ANAI ALVARADO Electronically Signed by: DIVYA COLLINS @ 03/27/2019 09:07 AM I personally read this/these film(s) with this resident Normal The [facility] Comment on above: Order Comment: No: D o not add to previous draw BASIC METABOLIC PANELon 03-01 Calcium [Mass/Vol] 9.2 mg/dL Normal 8.6-10.3 [facility] Comment on above: Order Comment: No: D o not add to previous draw Performed By: #### 0 0121, 27946, 73120, 22588, 40243 #### [facility] [address] [place] [address], [place] Chloride [Moles/Vol] 101 mmol/L Normal 98-107 [facility] Comment on above: Order Comment: No: D o not add to previous draw Performed By: #### 0 0121, 49166, 70052, 85274, 54779 #### [facility] [address] [place] [address], [place] CO2 [Moles/Vol] 27 mmol/L Normal 21-31 [facility] Comment on above: Order Comment: No: D o not add to previous draw Performed By: #### 0 0121, 90483, 04570, 15278, 62434 #### [facility] [address] [place] [address], [place] Creatinine [Mass/Vol] 0.93 mg/dL Normal 0.70-1.30 [facility] Comment on above: Order Comment: No: D o not add to previous draw Performed By: #### 0 0121, 61975, 26240, 74338, 70148 #### [facility] [address] [place] [address], [place] GFR/1.73 sq M predicted among blacks MDRD (S/P/Bld) [Vol rate/Area] mL/min/{1.73_m2} Normal >60 The [facility] Comment on above: Order Comment: No: D o not add to previous draw Performed By: #### 0 0121, 21092, 40953, 37035, 13080 #### [facility] [address] [place] [address], [facility] GFR/1.73 sq M predicted among non-blacks MDRD (S/P/Bld) [Vol rate/Area] mL/min/{1.73_m2} Normal >60 The [facility] Comment on above: Order Comment: No: D o not add to previous draw Performed By: #### 0 0121, 68207, 14690, 01078, 39391 #### [facility] [address] [place] [address], [facility] Glucose [Mass/Vol] 111 mg/dL High 70-100 [facility] Comment on above: Order Comment: No: D o not add to previous draw Performed By: #### 0 0121, 71091, 47359, 88606, 23316 #### [facility] [address] [place] [address], [facility] Potassium [Moles/Vol] 3.9 mmol/L Normal 3.5-5.1 [facility] Comment on above: Order Comment: No: D o not add to previous draw Performed By: #### 0 0121, 15099, 84465, 88017, 45743 #### [facility] [address] [place] [address], [place] Sodium [Moles/Vol] 137 mmol/L Normal 136-145 [facility] Comment on above: Order Comment: No: D o not add to previous draw Performed By: #### 0 0121, 26100, 43062, 14199, 77542 #### [facility] [address] Urea nitrogen [Mass/Vol] 26 mg/dL High 7-25 [facility] Comment on above: Order Comment: No: D o not add to previous draw Performed By: #### 0 0121, 54296, 73961, 42602, 28613 #### [facility] [address] [place] [address], [facility] CBC W/DIFFon 03-26-2019 ABS BASOPHILS 0.1 10*3/uL Normal 0.0-0.2 The [facility] Comment on above: Order Comment: No: D o not add to previous draw Performed By: #### 0 0121, 15230, 89167, 85187, 62011 #### [facility] [address] ABS IMM GRANS 0.5 10*3/uL High 0.0-0.2 The [facility] Comment on above: Order Comment: No: D o not add to previous draw Performed By: #### 0 0121, 89555, 98012, 11738, 32289 #### [facility] [address] ABS NEUTROPHILS 10.2 10*3/uL High 1.6-7.6 The [facility] Comment on above: Order Comment: No: D o not add to previous draw Performed By: #### 0 0121, 83117, 03074, 43447, 57580 #### [facility] [address] [facility] [place] [address], [facility] Basophils/100 WBC (Bld) 0.6 % Normal 0.0-1.0 The [facility] Comment on above: Order Comment: No: D o not add to previous draw Performed By: #### 0 0121, 66665, 48240, 83141, 36133 #### [facility] [address] [place] [address], [facility] Eosinophils (Bld) [#/Vol] 0.4 10*3/uL Normal 0.0-0.5 [facility] Comment on above: Order Comment: No: D o not add to previous draw Performed By: #### 0 0121, 50468, 53973, 21408, 15674 #### [facility] [address] [place] [address], [facility] Eosinophils/100 WBC (Bld) 2.8 % Normal 0.0-6.0 [facility] Comment on above: Order Comment: No: D o not add to previous draw Performed By: #### 0 0121, 15490, 34740, 79837, 84564 #### [facility] [address] [place] [address], [facility] Erythrocyte distribution width (RBC) [Ratio] 13.6 % Normal 11.5-15.0 The [facility] Comment on above: Order Comment: No: D o not add to previous draw Performed By: #### 0 0121, 50414, 16496, 13032, 94923 #### [facility] [address] [place] [address], [facility] Hematocrit (Bld) [Volume fraction] 34.5 % Low 39.0-50.0 The [facility] Comment on above: Order Comment: No: D o not add to previous draw Performed By: #### 0 0121, 65700, 37904, 35798, 69942 #### [facility] [address] [place] [address], [facility] Hemoglobin (Bld) [Mass/Vol] 11.3 g/dL Low 13.0-17.0 The [facility] Comment on above: Order Comment: No: D o not add to previous draw Performed By: #### 0 0121, 09458, 82581, 81578, 45080 #### [facility] [address] [place] [address], [place] IMMATURE GRANS 3.5 % High 0.0-1.0 [facility] Comment on above: Order Comment: No: D o not add to previous draw Performed By: #### 0 0121, 68708, 15020, 88205, 53609 #### [facility] [address] [facility] [place] [address], [facility] Lymphocytes (Bld) [#/Vol] 1.3 10*3/uL Normal 1.2-4.0 The [facility] Comment on above: Order Comment: No: D o not add to previous draw Performed By: #### 0 0121, 32768, 94656, 88418, 68724 #### [facility] [address] [place] [address], [facility] Lymphocytes/100 WBC (Bld) 9.2 % Low 20.0-45.0 The [facility] Comment on above: Order Comment: No: D o not add to previous draw Performed By: #### 0 0121, 78412, 37267, 56099, 46247 #### [facility] [address] [place] [address], [facility] MCH (RBC) [Entitic mass] 28.9 pg Normal 27.0-33.0 The [facility] Comment on above: Order Comment: No: D o not add to previous draw Performed By: #### 0 0121, 51799, 19097, 84994, 09109 #### [facility] [address] [place] [address], [facility] MCHC (RBC) [Mass/Vol] 32.8 g/dL Normal 32.0-35.0 [facility] Comment on above: Order Comment: No: D o not add to previous draw Performed By: #### 0 0121, 28938, 76022, 95405, 03870 #### [facility] [address] [place] [address], [facility] MCV (RBC) [Entitic vol] 88.2 fL Normal 82.0-98.0 [facility] Comment on above: Order Comment: No: D o not add to previous draw Performed By: #### 0 0121, 17023, 11946, 65895, 00860 #### [facility] [address] [place] [address], [facility] Monocytes (Bld) [#/Vol] 1.7 10*3/uL High 0.1-1.0 [facility] Comment on above: Order Comment: No: D o not add to previous draw Performed By: #### 0 0121, 34788, 55167, 69054, 22993 #### [facility] [address] [place] [address], [place] MONOS 11.7 % Normal 5.0-12.0 [facility] Comment on above: Order Comment: No: D o not add to previous draw Performed By: #### 0 0121, 48690, 66381, 97065, 09766 #### [facility] [address] [place] [address], [facility] Neutrophils/100 WBC (Bld) 72.2 % High 40.0-72.0 [facility] Comment on above: Order Comment: No: D o not add to previous draw Performed By: #### 0 0121, 71828, 11670, 14860, 62734 #### [facility] [address] [place] [address], [facility] Nucleated RBC/100 WBC (Bld) [Ratio] 0 % Normal 0-0 [facility] Comment on above: Order Comment: No: D o not add to previous draw Performed By: #### 0 0121, 75251, 61519, 66975, 57142 #### [facility] [address] [place] [address], [place] PLAT CNT 215 10*3/uL Normal 150-400 The [facility] Comment on above: Order Comment: No: D o not add to previous draw Performed By: #### 0 0121, 58760, 65074, 07731, 50722 #### [facility] [address] [place] [address], [place] RBC (Bld) [#/Vol] 3.91 10*6/uL Low 4.20-5.70 The [facility] Comment on above: Order Comment: No: D o not add to previous draw Performed By: #### 0 0121, 05300, 31776, 90585, 17221 #### [facility] [address] [place] [address], [place] WBC (Bld) [#/Vol] 14.17 10*3/uL High 4.00-10.60 [facility] Comment on above: Order Comment: No: D o not add to previous draw Performed By: #### 0 0121, 61997, 27735, 55588, 96359 #### [facility] [address] [place] [address], [place] POC GLUCOSE LABon 03-26-2019 Glucose [Mass/Vol] 129 mg/dL High 70-100 [facility] Comment on above: Performed By: #### 0 0121, 70877, 29244, 96302, 46121 #### [facility] [address] [place] [address], [place] Glucose [Mass/Vol] 129 mg/dL High 70-100 [facility] Comment on above: Performed By: #### 0 0121, 48126, 65176, 11067, 34365 #### [facility] [address] [place] [address], [place] Glucose [Mass/Vol] 130 mg/dL High 70-100 [facility] Comment on above: Performed By: #### 0 0121, 63098, 65716, 09707, 92154 #### [facility] [address] [place] [address], [place] Glucose [Mass/Vol] 91 mg/dL Normal 70-100 [facility] Comment on above: Performed By: #### 0 0121, 57525, 22261, 06838, 74695 #### [address] [place] [address], [facility] PORTABLE CHEST 1 VIEWon 03-01 PORTABLE CHEST 1 VIEW [facility] Department of Radiology [address] [place] [phone] ======== Patient Name: TRACIE CRAIN : 1965 Sex: M Age: Race: NA Pt. Location: [id number] Patient Status: I Ordered Date: 03/26/2019 7:00:00 [...] findings. Electronically signed by:Divya Collins. Transcribed by: [email or web address], User Resident: [email or web address] LIAO Electronically Signed by: DIVYA COLLINS @ 03/26/2019 10:03 AM I personally read this/these film(s) with this resident Normal The [facility] Comment on above: Order Comment: No: D o not add to previous draw BASIC METABOLIC PANELon 03-01 Calcium [Mass/Vol] 9.1 mg/dL Normal 8.6-10.3 [facility] Comment on above: Order Comment: << On admission If not done in ED>> No: Do not add to previous draw Performed By: #### 0 0121, 26573, 76175, 36030, 34300 #### [facility] [address] [place] [address], [facility] Chloride [Moles/Vol] 98 mmol/L Normal 98-107 [facility] Comment on above: Order Comment: << On admission If not done in ED>> No: Do not add to previous draw Performed By: #### 0 0121, 32494, 61879, 57896, 20001 #### [facility] [address] [place] [address], [place] CO2 [Moles/Vol] 29 mmol/L Normal 21-31 [facility] Comment on above: Order Comment: << On admission If not done in ED>> No: Do not add to previous draw Performed By: #### 0 0121, 62935, 98691, 55798, 12362 #### [facility] [address] [place] [address], [place] Creatinine [Mass/Vol] 1.01 mg/dL Normal 0.70-1.30 [facility] Comment on above: Order Comment: << On admission If not done in ED>> No: Do not add to previous draw Performed By: #### 0 0121, 69883, 40031, 02225, 91807 #### [facility] [address] [place] [address], [facility] GFR/1.73 sq M predicted among blacks MDRD (S/P/Bld) [Vol rate/Area] mL/min/{1.73_m2} Normal >60 [facility] Comment on above: Order Comment: << On admission If not done in ED>> No: Do not add to previous draw Performed By: #### 0 0121, 83486, 70322, 54822, 82400 #### [facility] [address] [place] [address], [facility] GFR/1.73 sq M predicted among non-blacks MDRD (S/P/Bld) [Vol rate/Area] mL/min/{1.73_m2} Normal >60 [facility] Comment on above: Order Comment: << On admission If not done in ED>> No: Do not add to previous draw Performed By: #### 0 0121, 85018, 05098, 89995, 18094 #### [facility] [address] [place] [address], [facility] Glucose [Mass/Vol] 123 mg/dL High 70-100 [facility] Comment on above: Order Comment: << On admission If not done in ED>> No: Do not add to previous draw Performed By: #### 0 0121, 89903, 87837, 17840, 35958 #### [facility] [address] [place] [address], [facility] Potassium [Moles/Vol] 3.9 mmol/L Normal 3.5-5.1 [facility] Comment on above: Order Comment: << On admission If not done in ED>> No: Do not add to previous draw Performed By: #### 0 0121, 38745, 71480, 71526, 58160 #### [facility] [address] [facility] Sodium [Moles/Vol] 134 mmol/L Low 136-145 [facility] Comment on above: Order Comment: << On admission If not done in ED>> No: Do not add to previous draw Performed By: #### 0 0121, 28613, 06986, 40678, 51894 #### [facility] [address] [facility] Urea nitrogen [Mass/Vol] 29 mg/dL High 7-25 [facility] Comment on above: Order Comment: << On admission If not done in ED>> No: Do not add to previous draw Performed By: #### 0 0121, 87358, 66002, 00396, 56610 #### [facility] [address] CBC W/DIFFon 03-25-2019 ABS BASOPHILS 0.1 10*3/uL Normal 0.0-0.2 [facility] Comment on above: Order Comment: << On admission If not done in ED>> No: Do not add to previous draw Performed By: #### 0 0121, 08392, 14737, 58301, 13563 #### [facility] [address] ABS NEUTROPHILS 11.2 10*3/uL High 1.6-7.6 [facility] Comment on above: Order Comment: << On admission If not done in ED>> No: Do not add to previous draw Performed By: #### 0 0121, 27700, 88224, 07058, 76824 #### [facility] [address] [facility]. [address] Basophils/100 WBC (Bld) 0.9 % Normal 0.0-1.0 [facility] Comment on above: Order Comment: << On admission If not done in ED>> No: Do not add to previous draw Performed By: #### 0 0121, 01355, 63666, 58069, 17140 #### [facility] [address] [place] [address], [facility] Eosinophils (Bld) [#/Vol] 0.1 10*3/uL Normal 0.0-0.5 [facility] Comment on above: Order Comment: << On admission If not done in ED>> No: Do not add to previous draw Performed By: #### 0 0121, 22685, 56423, 59497, 02883 #### [facility] [address] [place] [address], [facility] Eosinophils/100 WBC (Bld) 0.9 % Normal 0.0-6.0 [facility] Comment on above: Order Comment: << On admission If not done in ED>> No: Do not add to previous draw Performed By: #### 0 0121, 40473, 97072, 14483, 77156 #### [facility] [address] [place], [place] [address] [place] [address] Erythrocyte distribution width (RBC) [Ratio] 13.4 % Normal 11.5-15.0 [facility] Comment on above: Order Comment: << On admission If not done in ED>> No: Do not add to previous draw Performed By: #### 0 0121, 31115, 91587, 24461, 49235 #### [facility] [address] [place] [address], [facility] GIANT PLATELETS Present Normal [facility] Comment on above: Order Comment: << On admission If not done in ED>> No: Do not add to previous draw Performed By: #### 0 0121, 51826, 37488, 88264, 39088 #### [facility] [address] [place] [address], [facility] Hematocrit (Bld) [Volume fraction] 35.4 % Low 39.0-50.0 [facility] Comment on above: Order Comment: << On admission If not done in ED>> No: Do not add to previous draw Performed By: #### 0 0121, 19008, 88522, 42171, 20041 #### [facility] [address] [place] [address], [facility] Hemoglobin (Bld) [Mass/Vol] 11.1 g/dL Low 13.0-17.0 [facility] Comment on above: Order Comment: << On admission If not done in ED>> No: Do not add to previous draw Performed By: #### 0 0121, 84126, 96769, 60730, 75891 #### [facility] [address] [facility] [place] [address], [facility] Lymphocytes (Bld) [#/Vol] 0.8 10*3/uL Low 1.2-4.0 [facility] Comment on above: Order Comment: << On admission If not done in ED>> No: Do not add to previous draw Performed By: #### 0 0121, 03085, 73273, 53263, 55779 #### [facility] [address] [place] [address], [facility] Lymphocytes/100 WBC (Bld) 6.3 % Low 20.0-45.0 [facility] Comment on above: Order Comment: << On admission If not done in ED>> No: Do not add to previous draw Performed By: #### 0 0121, 91638, 91603, 67160, 24488 #### [facility] [address] [place] [address], [facility] MCH (RBC) [Entitic mass] 28.8 pg Normal 27.0-33.0 [facility] Comment on above: Order Comment: << On admission If not done in ED>> No: Do not add to previous draw Performed By: #### 0 0121, 07086, 13713, 46762, 16395 #### [facility] [address] [place] [address], [facility] MCHC (RBC) [Mass/Vol] 31.4 g/dL Low 32.0-35.0 [facility] Comment on above: Order Comment: << On admission If not done in ED>> No: Do not add to previous draw Performed By: #### 0 0121, 02134, 06325, 22868, 89431 #### [facility] [address] [place], [place] [address] [place] [address] MCV (RBC) [Entitic vol] 91.9 fL Normal 82.0-98.0 [facility] Comment on above: Order Comment: << On admission If not done in ED>> No: Do not add to previous draw Performed By: #### 0 0121, 02610, 20591, 26664, 71741 #### [facility] [address] Monocytes (Bld) [#/Vol] 0.7 10*3/uL Normal 0.1-1.0 [facility] Comment on above: Order Comment: << On admission If not done in ED>> No: Do not add to previous draw Performed By: #### 0 0121, 68953, 24458, 07894, 93888 #### [facility] [address] MONOS 5.4 % Normal 5.0-12.0 [facility] Comment on above: Order Comment: << On admission If not done in ED>> No: Do not add to previous draw Performed By: #### 0 0121, 17265, 79964, 24024, 55108 #### [facility] [address] [place] [address], [facility] MYELOS 0.9 % High .0-.0 [facility] Comment on above: Order Comment: << On admission If not done in ED>> No: Do not add to previous draw Performed By: #### 0 0121, 34368, 36374, 19709, 21568 #### [facility] [address] [place] [address], [facility] Neutrophils/100 WBC (Bld) 85.6 % High 40.0-72.0 [facility] Comment on above: Order Comment: << On admission If not done in ED>> No: Do not add to previous draw Performed By: #### 0 0121, 41306, 02505, 06827, 34834 #### [facility] [address] [place] [address], [facility] Nucleated RBC/100 WBC (Bld) [Ratio] 0 % Normal 0-0 The [facility] Comment on above: Order Comment: << On admission If not done in ED>> No: Do not add to previous draw Performed By: #### 0 0121, 51286, 88092, 80146, 47730 #### [facility] [address] [place] [address], [facility] PLAT CNT 196 10*3/uL Normal 150-400 The [facility] Comment on above: Order Comment: << On admission If not done in ED>> No: Do not add to previous draw Performed By: #### 0 0121, 58910, 12826, 64588, 50622 #### [facility] [address] [place] [address], [facility] RBC (Bld) [#/Vol] 3.85 10*6/uL Low 4.20-5.70 The [facility] Comment on above: Order Comment: << On admission If not done in ED>> No: Do not add to previous draw Performed By: #### 0 0121, 58287, 87541, 03132, 88033 #### [facility] [address] [place] [address], [place] WBC (Bld) [#/Vol] 13.09 10*3/uL High 4.00-10.60 [facility] Comment on above: Order Comment: << On admission If not done in ED>> No: Do not add to previous draw Performed By: #### 0 0121, 33080, 52971, 77873, 81102 #### [facility] [address] [place] [address], [place] MAGNESIUM BLOODon 03-25-2019 Magnesium [Mass/Vol] 2.3 mg/dL Normal 1.9-2.7 The [facility] Comment on above: Order Comment: << On admission If not done in ED>> No: Do not add to previous draw Performed By: #### 0 0121, 24139, 69970, 27486, 38694 #### [facility] [address] [place] [address], [place] PHOSPHORUS BLOODon 9 Phosphate [Mass/Vol] 2.6 mg/dL Normal 2.5-5.0 The [facility] Comment on above: Order Comment: << On admission If not done in ED>> No: Do not add to previous draw Performed By: #### 0 0121, 56588, 57921, 55042, 97229 #### [facility] [address] [place] [address], [place] POC GLUCOSE LABon 03-25-2019 Glucose [Mass/Vol] 103 mg/dL High 70-100 [facility] Comment on above: Performed By: #### 0 0121, 84785, 03247, 58287, 96384 #### [facility] [address] [place] [address], [place] Glucose [Mass/Vol] 113 mg/dL High 70-100 [facility] Comment on above: Performed By: #### 0 0121, 64810, 79563, 30424, 86968 #### [facility] [address] [place] [address], [place] Glucose [Mass/Vol] 120 mg/dL High 70-100 [facility] Comment on above: Performed By: #### 0 0121, 69526, 54841, 42449, 60071 #### [facility] [address] Glucose [Mass/Vol] 110 mg/dL High 70-100 [facility] Comment on above: Performed By: #### 0 0121, 32666, 86946, 80135, 88306 #### [address] PORTABLE CHEST 1 VIEWon 03-01 PORTABLE CHEST 1 VIEW [facility] Department of Radiology [address] [place] [id number] ======== Patient Name: TRACIE CRAIN : 1965 Sex: M Age: Race: NA Pt. Location: [id number] Patient Status: I Ordered Date: 03/25/2019 7:00:00 [...] findings. Electronically signed by:Divya Collins. Transcribed by: [email or web address], User Resident: KAREEM LIAO Electronically Signed by: DIVYA COLLINS @ 03/25/2019 11:10 AM I personally read this/these film(s) with this resident Normal [facility] Comment on above: Order Comment: No: D o not add to previous draw BASIC METABOLIC PANELon 03-01 Calcium [Mass/Vol] 9.0 mg/dL Normal 8.6-10.3 [facility] Comment on above: Order Comment: << On admission If not done in ED>> No: Do not add to previous draw Performed By: #### 0 0121, 67382, 57690, 29479, 98210 #### [facility] [address] [facility] [place] [address], [facility] Chloride [Moles/Vol] 96 mmol/L Low 98-107 [facility] Comment on above: Order Comment: << On admission If not done in ED>> No: Do not add to previous draw Performed By: #### 0 0121, 06807, 94008, 70514, 12845 #### [facility] [address] [place] [address], [place] CO2 [Moles/Vol] 30 mmol/L Normal 21-31 The [facility] Comment on above: Order Comment: << On admission If not done in ED>> No: Do not add to previous draw Performed By: #### 0 0121, 96022, 86835, 95683, 34693 #### [facility] [address] [place] [address], [place] Creatinine [Mass/Vol] 0.89 mg/dL Normal 0.70-1.30 [facility] Comment on above: Order Comment: << On admission If not done in ED>> No: Do not add to previous draw Performed By: #### 0 0121, 53524, 02473, 36386, 69930 #### [facility] [address] [place] [address], [facility] GFR/1.73 sq M predicted among blacks MDRD (S/P/Bld) [Vol rate/Area] mL/min/{1.73_m2} Normal >60 [facility] Comment on above: Order Comment: << On admission If not done in ED>> No: Do not add to previous draw Performed By: #### 0 0121, 62632, 44768, 45714, 72569 #### [facility] [address] [place] [address], [facility] GFR/1.73 sq M predicted among non-blacks MDRD (S/P/Bld) [Vol rate/Area] mL/min/{1.73_m2} Normal >60 [facility] Comment on above: Order Comment: << On admission If not done in ED>> No: Do not add to previous draw Performed By: #### 0 0121, 03392, 97620, 49231, 31645 #### [facility] [address] [place] [address], [facility] Glucose [Mass/Vol] 98 mg/dL Normal 70-100 The [facility] Comment on above: Order Comment: << On admission If not done in ED>> No: Do not add to previous draw Performed By: #### 0 0121, 10830, 84255, 17668, 42649 #### [facility] [address] [place] [address], [facility] Potassium [Moles/Vol] 3.2 mmol/L Low 3.5-5.1 [facility] Comment on above: Order Comment: << On admission If not done in ED>> No: Do not add to previous draw Performed By: #### 0 0121, 24401, 32606, 32476, 48917 #### [facility] [address] Sodium [Moles/Vol] 135 mmol/L Low 136-145 [facility] Comment on above: Order Comment: << On admission If not done in ED>> No: Do not add to previous draw Performed By: #### 0 0121, 92038, 65549, 54201, 71326 #### [facility] [address] Urea nitrogen [Mass/Vol] 29 mg/dL High 7-25 [facility] Comment on above: Order Comment: << On admission If not done in ED>> No: Do not add to previous draw Performed By: #### 0 0121, 00717, 40715, 79878, 05305 #### [facility] [address] CBC W/DIFFon 03-24-2019 ABS BASOPHILS 0.1 10*3/uL Normal 0.0-0.2 The [facility] Comment on above: Order Comment: << On admission If not done in ED>> No: Do not add to previous draw Performed By: #### 0 0121, 02989, 75514, 92386, 89796 #### [facility] [address] ABS IMM GRANS 0.1 10*3/uL Normal 0.0-0.2 [facility] Comment on above: Order Comment: << On admission If not done in ED>> No: Do not add to previous draw Performed By: #### 0 0121, 95950, 47050, 73902, 98567 #### [facility] [address] ABS NEUTROPHILS 6.9 10*3/uL Normal 1.6-7.6 [facility] Comment on above: Order Comment: << On admission If not done in ED>> No: Do not add to previous draw Performed By: #### 0 0121, 64008, 36264, 92601, 29319 #### [facility] [address] [place] [address], [facility] Basophils/100 WBC (Bld) 0.8 % Normal 0.0-1.0 [facility] Comment on above: Order Comment: << On admission If not done in ED>> No: Do not add to previous draw Performed By: #### 0 0121, 24589, 28072, 78812, 25780 #### [facility] [address] [place] [address], [facility] Eosinophils (Bld) [#/Vol] 0.3 10*3/uL Normal 0.0-0.5 [facility] Comment on above: Order Comment: << On admission If not done in ED>> No: Do not add to previous draw Performed By: #### 0 0121, 12968, 24132, 28476, 10031 #### [facility] [address] [place] [address], [facility] Eosinophils/100 WBC (Bld) 2.8 % Normal 0.0-6.0 [facility] Comment on above: Order Comment: << On admission If not done in ED>> No: Do not add to previous draw Performed By: #### 0 0121, 44395, 72306, 24182, 80837 #### [facility] [address] [place] [address], [facility] Erythrocyte distribution width (RBC) [Ratio] 13.5 % Normal 11.5-15.0 [facility] Comment on above: Order Comment: << On admission If not done in ED>> No: Do not add to previous draw Performed By: #### 0 0121, 41061, 88516, 69773, 28876 #### [facility] [address] Hematocrit (Bld) [Volume fraction] 33.0 % Low 39.0-50.0 [facility] Comment on above: Order Comment: << On admission If not done in ED>> No: Do not add to previous draw Performed By: #### 0 0121, 37934, 38746, 70606, 16562 #### [facility] [address] [facility] [place] [address], [facility] Hemoglobin (Bld) [Mass/Vol] 10.4 g/dL Low 13.0-17.0 [facility] Comment on above: Order Comment: << On admission If not done in ED>> No: Do not add to previous draw Performed By: #### 0 0121, 34129, 66646, 05153, 05829 #### [facility] [address] IMMATURE GRANS 1.2 % High 0.0-1.0 The [facility] Comment on above: Order Comment: << On admission If not done in ED>> No: Do not add to previous draw Performed By: #### 0 0121, 93329, 19968, 28872, 81246 #### [facility] [address] Lymphocytes (Bld) [#/Vol] 1.5 10*3/uL Normal 1.2-4.0 [facility] Comment on above: Order Comment: << On admission If not done in ED>> No: Do not add to previous draw Performed By: #### 0 0121, 84433, 57307, 63975, 26750 #### [facility] [address] [place] [address], [facility] Lymphocytes/100 WBC (Bld) 14.4 % Low 20.0-45.0 [facility] Comment on above: Order Comment: << On admission If not done in ED>> No: Do not add to previous draw Performed By: #### 0 0121, 43536, 43486, 21386, 12066 #### [facility] [address] [facility] [place] [address], [facility] MCH (RBC) [Entitic mass] 28.8 pg Normal 27.0-33.0 [facility] Comment on above: Order Comment: << On admission If not done in ED>> No: Do not add to previous draw Performed By: #### 0 0121, 86873, 79775, 87688, 74023 #### [facility] [address] MCHC (RBC) [Mass/Vol] 31.5 g/dL Low 32.0-35.0 [facility] Comment on above: Order Comment: << On admission If not done in ED>> No: Do not add to previous draw Performed By: #### 0 0121, 40323, 48274, 74870, 76153 #### [facility] [address] [place] [address], [facility] MCV (RBC) [Entitic vol] 91.4 fL Normal 82.0-98.0 [facility] Comment on above: Order Comment: << On admission If not done in ED>> No: Do not add to previous draw Performed By: #### 0 0121, 44633, 67863, 00561, 99744 #### [facility] [address] [facility] [place] [address], [facility] Monocytes (Bld) [#/Vol] 1.3 10*3/uL High 0.1-1.0 [facility] Comment on above: Order Comment: << On admission If not done in ED>> No: Do not add to previous draw Performed By: #### 0 0121, 75178, 58200, 62866, 40608 #### [facility] [address] [place] [address], [facility] MONOS 13.1 % High 5.0-12.0 [facility] Comment on above: Order Comment: << On admission If not done in ED>> No: Do not add to previous draw Performed By: #### 0 0121, 05955, 91848, 36703, 42600 #### [facility] [address] [place] [address], [place] Neutrophils/100 WBC (Bld) 67.7 % Normal 40.0-72.0 [facility] Comment on above: Order Comment: << On admission If not done in ED>> No: Do not add to previous draw Performed By: #### 0 0121, 37252, 45027, 51945, 11892 #### [facility] [address] [place] [address], [facility] Nucleated RBC/100 WBC (Bld) [Ratio] 0 % Normal 0-0 [facility] Comment on above: Order Comment: << On admission If not done in ED>> No: Do not add to previous draw Performed By: #### 0 0121, 94501, 73884, 53321, 45750 #### [facility] [address] [place] [address], [place] PLAT CNT 166 10*3/uL Normal 150-400 The [facility] Comment on above: Order Comment: << On admission If not done in ED>> No: Do not add to previous draw Performed By: #### 0 0121, 75075, 43980, 80419, 23688 #### [facility] [address] [place] [address], [place] RBC (Bld) [#/Vol] 3.61 10*6/uL Low 4.20-5.70 The [facility] Comment on above: Order Comment: << On admission If not done in ED>> No: Do not add to previous draw Performed By: #### 0 0121, 79077, 74568, 09750, 66107 #### [facility] [address] [place] [address], [place] WBC (Bld) [#/Vol] 10.21 10*3/uL Normal 4.00-10.60 [facility] Comment on above: Order Comment: << On admission If not done in ED>> No: Do not add to previous draw Performed By: #### 0 0121, 26106, 19324, 13178, 52914 #### [facility] [address] [facility] [place] [address], [facility] MAGNESIUM BLOODon 03-24-2019 Magnesium [Mass/Vol] 2.4 mg/dL Normal 1.9-2.7 [facility] Comment on above: Order Comment: << On admission If not done in ED>> No: Do not add to previous draw Performed By: #### 0 0121, 30465, 67518, 96997, 79741 #### [facility] [address] [place] [address], [facility] PHOSPHORUS BLOODon 9 Phosphate [Mass/Vol] 2.9 mg/dL Normal 2.5-5.0 [facility] Comment on above: Order Comment: << On admission If not done in ED>> No: Do not add to previous draw Performed By: #### 0 0121, 21209, 69465, 79942, 23136 #### [facility] [address] [facility] [place] [address], [facility] POC GLUCOSE LABon 03-24-2019 Glucose [Mass/Vol] 107 mg/dL High 70-100 [facility] Comment on above: Performed By: #### 0 0121, 64359, 35730, 44603, 14140 #### [facility] [address] [place] [address], [facility] PORTABLE CHEST 1 VIEWon 03-01 PORTABLE CHEST 1 VIEW [facility] Department of Radiology [address] [place] [id number] ======== Patient Name: TRACIE CRAIN : 1965 Sex: M Age: Race: NA Pt. Location: [id number] Patient Status: I Ordered Date: 03/24/2019 4:00:00 [...] recommended. Electronically signed by:Scottie Fall. Transcribed by: [email or web address], User Resident: Electronically Signed by: SCOTTIE FALL @ 03/24/2019 10:43 AM Normal [facility] Comment on above: Order Comment: << On admission If not done in ED>> No: Do not add to previous draw POC GLUCOSE LABon 03-23-2019 Glucose [Mass/Vol] 150 mg/dL High 70-100 [facility] Comment on above: Performed By: #### 0 0121, 73958, 51413, 32954, 69633 #### [facility] [address] [place] [address], [place] Glucose [Mass/Vol] 110 mg/dL High 70-100 [facility] Comment on above: Performed By: #### 0 0121, 19700, 30535, 17440, 68280 #### [facility] [address] [place] [address], [place] Glucose [Mass/Vol] 112 mg/dL High 70-100 [facility] Comment on above: Performed By: #### 0 0121, 12218, 15527, 85005, 35582 #### [facility] [address] [place] [address], [place] Glucose [Mass/Vol] 93 mg/dL Normal 70-100 [facility] Comment on above: Performed By: #### 0 0121, 47637, 98832, 23377, 50942 #### [facility] [address] [place] [address], [place] ARTERIAL BLOOD GAS WITH ICAo n 03-22-2019 BASE EXCESS 4 mmol/L High -2-3 [facility] Comment on above: Performed By: #### 0 0121, 80133, 33038, 84936, 99047 #### [facility] [address] [place] [address], [place] [employer] NASAL CANNULA Normal [facility] Comment on above: Performed By: #### 0 0121, 22532, 99925, 39959, 09200 #### [facility] [address] [place] [address], [place] HCO3 (Bld) [Moles/Vol] 27 mmol/L Normal 21-28 [facility] Comment on above: Performed By: #### 0 0121, 15615, 66088, 21132, 18178 #### [facility] [address] [place] [address], [place] IONIZED CALCIUM 1.14 mmol/L Normal 1.13-1.[address] [facility] Comment on above: Performed By: #### 0 0121, 15189, 02478, 47579, 90532 #### [facility] [address] [place] [address], [place] LPM 6.0 LPM Normal [facility] Comment on above: Performed By: #### 0 0121, 80000, 08989, 25940, 86611 #### [facility] [address] [place] [address], [place] Oxygen (Bld) [Partial pressure] 70 mm[Hg] Low 83-108 [facility] Comment on above: Performed By: #### 0 0121, 56956, 49354, 30229, 51483 #### [facility] [address] [place] [address], [place] Oxygen saturation in Blood 93.0 % Low 94.0-97.0 [facility] Comment on above: Performed By: #### 0 0121, 60366, 11460, 27406, 97157 #### [facility] [address] [place] [address], [place] PCO2 35 mmHg Normal 35-45 [facility] Comment on above: Performed By: #### 0 0121, 88845, 56873, 45829, 84866 #### [facility] [address] [place] [address], [place] pH (Bld) 7.50 [pH] High 7.35-7.45 [facility] Comment on above: Result Comment: KINJAL REYNOSO NOTE: Effective 12/02/18, reference ranges for Respiratory GEM analyzers running arterial blood have been updated to reflect the assistant center director's published reference ranges. Performed By: #### 0 0121, 78410, 70364, 91945, 91434 #### [facility] [address] [place] [address], [facility] BASIC METABOLIC PANELon 06-2 Calcium [Mass/Vol] 8.9 mg/dL Normal 8.6-10.3 [facility] Comment on above: Order Comment: << On admission If not done in ED>> No: Do not add to previous draw Performed By: #### 0 0121, 46124, 37511, 40918, 23517 #### [facility] [address] [place] [address], [facility] Chloride [Moles/Vol] 101 mmol/L Normal 98-107 [facility] Comment on above: Order Comment: << On admission If not done in ED>> No: Do not add to previous draw Performed By: #### 0 0121, 78553, 09112, 04604, 13017 #### [facility] [address] [place] [address], [facility] CO2 [Moles/Vol] 28 mmol/L Normal 21-31 [facility] Comment on above: Order Comment: << On admission If not done in ED>> No: Do not add to previous draw Performed By: #### 0 0121, 03107, 62839, 63390, 24264 #### [facility] [address] [place] [address], [facility] Creatinine [Mass/Vol] 1.29 mg/dL Normal 0.70-1.30 [facility] Comment on above: Order Comment: << On admission If not done in ED>> No: Do not add to previous draw Performed By: #### 0 0121, 14813, 47272, 28553, 58567 #### [facility] [address] [place] [address], [place] GFR/1.73 sq M predicted among blacks MDRD (S/P/Bld) [Vol rate/Area] mL/min/{1.73_m2} Normal >60 [facility] Comment on above: Order Comment: << On admission If not done in ED>> No: Do not add to previous draw Performed By: #### 0 0121, 17787, 39120, 07035, 85772 #### [facility] [address] [place] [address], [place] GFR/1.73 sq M predicted among non-blacks MDRD (S/P/Bld) [Vol rate/Area] 58 ml/min/1.73sq m Abnormal >60 [facility] Comment on above: Order Comment: << On admission If not done in ED>> No: Do not add to previous draw Performed By: #### 0 0121, 72638, 17174, 49558, 03756 #### [facility] [address] [place] [address], [place] Glucose [Mass/Vol] 111 mg/dL High 70-100 [facility] Comment on above: Order Comment: << On admission If not done in ED>> No: Do not add to previous draw Performed By: #### 0 0121, 57867, 30034, 77562, 19865 #### [facility] [address] [place] [address], [place] Sodium [Moles/Vol] 139 mmol/L Normal 136-145 [facility] Comment on above: Order Comment: << On admission If not done in ED>> No: Do not add to previous draw Performed By: #### 0 0121, 37006, 06967, 67182, 64678 #### [facility] [address] [place] [address], [place] Urea nitrogen [Mass/Vol] 23 mg/dL Normal 7-25 [facility] Comment on above: Order Comment: << On admission If not done in ED>> No: Do not add to previous draw Performed By: #### 0 0121, 63265, 40524, 90575, 46509 #### [facility] [address] CBC COMPLETE BLOOD COUNTon 0 - Erythrocyte distribution width (RBC) [Ratio] 13.4 % Normal 11.5-15.0 [facility] Comment on above: Order Comment: << On admission If not done in ED>> No: Do not add to previous draw Performed By: #### 0 0121, 74938, 14522, 73518, 11932 #### [facility] [address] Hematocrit (Bld) [Volume fraction] 31.2 % Low 39.0-50.0 [facility] Comment on above: Order Comment: << On admission If not done in ED>> No: Do not add to previous draw Performed By: #### 0 0121, 97087, 62640, 84753, 57160 #### [facility] [address] Hemoglobin (Bld) [Mass/Vol] 10.3 g/dL Low 13.0-17.0 [facility] [facility] Comment on above: Order Comment: << On admission If not done in ED>> No: Do not add to previous draw Performed By: #### 0 0121, 44943, 00019, 83053, 18261 #### [facility] [address] MCH (RBC) [Entitic mass] 28.9 pg Normal 27.0-33.0 [facility] Comment on above: Order Comment: << On admission If not done in ED>> No: Do not add to previous draw Performed By: #### 0 0121, 70989, 29663, 76113, 01673 #### [facility] [address] MCHC (RBC) [Mass/Vol] 33.0 g/dL Normal 32.0-35.0 [facility] Comment on above: Order Comment: << On admission If not done in ED>> No: Do not add to previous draw Performed By: #### 0 0121, 49141, 59132, 39787, 79674 #### [facility] [address] [place] [address], [facility] MCV (RBC) [Entitic vol] 87.4 fL Normal 82.0-98.0 [facility] Comment on above: Order Comment: << On admission If not done in ED>> No: Do not add to previous draw Performed By: #### 0 0121, 69685, 18416, 31218, 39177 #### [facility] [address] [place] [address], [facility] Nucleated RBC/100 WBC (Bld) [Ratio] 0 % Normal 0-0 [facility] Comment on above: Order Comment: << On admission If not done in ED>> No: Do not add to previous draw Performed By: #### 0 0121, 69129, 61576, 26136, 67650 #### [facility] [address] [facility] [place] [address], [facility] PLAT CNT 88 10*3/uL Low 150-400 [facility] Comment on above: Order Comment: << On admission If not done in ED>> No: Do not add to previous draw Performed By: #### 0 0121, 02067, 49167, 69133, 30848 #### [facility] [address] [place] [address], [facility] RBC (Bld) [#/Vol] 3.57 10*6/uL Low 4.20-5.70 The [facility] Comment on above: Order Comment: << On admission If not done in ED>> No: Do not add to previous draw Performed By: #### 0 0121, 56982, 55344, 71067, 17281 #### [facility] [address] [place] [address], [place] WBC (Bld) [#/Vol] 13.95 10*3/uL High 4.00-10.60 [facility] Comment on above: Order Comment: << On admission If not done in ED>> No: Do not add to previous draw Performed By: #### 0 0121, 26691, 01002, 19730, 50383 #### [facility] [address] [place] [address], [place] COOXIMETRYon 03-22-2019 COHB 2 % Normal [facility] Comment on above: Performed By: #### 0 0121, 94923, 91627, 57972, 25630 #### [facility] [address] [place] [address], [place] METHB 1 % Normal [facility] Comment on above: Performed By: #### 0 0121, 34704, 13441, 73503, 72940 #### [facility] [address] [place] [address], [place] Oxygen saturation in Blood 56.5 % Low 65.0-75.0 [facility] Comment on above: Performed By: #### 0 0121, 63102, 37492, 86704, 97295 #### [facility] [address] [place] [address], [place] THB 9.9 g/dL Normal [facility] Comment on above: Performed By: #### 0 0121, 82908, 52832, 78844, 30935 #### [facility] [address] [place] [address], [place] MAGNESIUM BLOODon 03-22-2019 Magnesium [Mass/Vol] 2.0 mg/dL Normal 1.9-2.7 [facility] Comment on above: Order Comment: << On admission If not done in ED>> No: Do not add to previous draw Performed By: #### 0 0121, 75750, 80850, 44747, 87992 #### [facility] [address] [place] [address], [place] Magnesium [Mass/Vol] 1.9 mg/dL Normal 1.9-2.7 [facility] Comment on above: Order Comment: << On admission If not done in ED>> No: Do not add to previous draw Performed By: #### 0 0121, 26814, 46458, 01943, 22908 #### [facility] [address] [place] [address], [place] PHOSPHORUS BLOODon 9 Phosphate [Mass/Vol] 3.6 mg/dL Normal 2.5-5.0 [facility] Comment on above: Order Comment: << On admission If not done in ED>> No: Do not add to previous draw Performed By: #### 0 0121, 27920, 65121, 87382, 75870 #### [facility] [address] [place] [address], [place] POC GLUCOSE LABon 03-22-2019 Glucose [Mass/Vol] 111 mg/dL High 70-100 [facility] Comment on above: Performed By: #### 0 0121, 41851, 08013, 85840, 76156 #### [facility] [address] [place] [address], [place] Glucose [Mass/Vol] 108 mg/dL High 70-100 [facility] Comment on above: Performed By: #### 0 0121, 08473, 65615, 72952, 72123 #### [facility] [address] [place] [address], [place] Glucose [Mass/Vol] 109 mg/dL High 70-100 [facility] Comment on above: Performed By: #### 0 0121, 93778, 86202, 97020, 95832 #### [facility] [address] [place] [address], [place] Glucose [Mass/Vol] 99 mg/dL Normal 70-100 [facility] Comment on above: Performed By: #### 0 0121, 03868, 73317, 85696, 64518 #### [facility] [address] [facility] [place] [place] [address] [place] [address] Glucose [Mass/Vol] 91 mg/dL Normal 70-100 [facility] Comment on above: Performed By: #### 0 0121, 39866, 01104, 39275, 28386 #### [facility] [address] [facility] [place] [address], [facility] PORTABLE CHEST 1 VIEWon 03-01 PORTABLE CHEST 1 VIEW [facility] Department of Radiology [address] [place] [id number] ======== Patient Name: TRACIE CRAIN : 1965 Sex: M Age: Race: NA Pt. Location: [id number] Patient Status: I Ordered Date: 03/22/2019 5:00:00 [...] removal of endotracheal and enteric tubes. Right-sided [place] catheter is again seen with tip overlying [...] Small left pleural effusion, unchanged. 3. Right-sided [place] catheter with tip projecting over the pulmonary trunk, unchanged. 4. Redemonstration of 2 chest tubes on the right, unchanged. Approved by:Cynthia Finley on 03/22/2019 8:06 AM EDT. I, Yenni Osuna, have reviewed the images and report and concur with these findings. Electronically signed by:Yenni Osuna. Transcribed by: [email or web address], User Resident: CYNTHIA FINLEY Electronically Signed by: YENNI OSUNA @ 03/22/2019 01:07 PM I personally read this/these film(s) with this resident Normal [facility] Comment on above: Order Comment: << On admission If not done in ED>> No: Do not add to previous draw POTASSIUM BLOODon 03-22-2019 Potassium [Moles/Vol] 3.1 mmol/L Low 3.5-5.1 [facility] Comment on above: Order Comment: << On admission If not done in ED>> No: Do not add to previous draw Performed By: #### 0 0121, 82416, 77705, 57860, 47117 #### [facility] [address] [facility]. [address] PROTHROMBIN TIMEon 9 INR Coag (PPP) [Relative time] 1.37 {INR} High 0.91-1.16 [facility] Comment on above: Order Comment: << [...] CHEST 1995;[id number]. Performed By: #### 0 0121, 84512, 03306, 70753, 82947 #### [facility] [address] [facility]. [address] PT Coag (PPP) [Time] 16.9 s High 12.3-14.8 [facility] Comment on above: Order Comment: << On admission If not done in ED>> No: Do not add to previous draw Result Comment: ALL RESULTS MUST BE INTERPRETED WITH RESPECT TO BLOOD DRAWING ARTIFACT OR DILUTION ERROR OF ANTICOAGULANT AT THE TIME OF SAMPLING. Performed By: #### 0 0121, 54981, 67310, 69413, 98612 #### [facility] [address] [facility]. [address] ARTERIAL BLOOD GAS W/COOXon 03-21-2019 BASE EXCESS 1 mmol/L Normal -2-3 The [facility] Comment on above: Performed By: #### 0 0121, 06106, 34908, 92008, 63581 #### [facility] [address] [facility]. [address] COHB 1.4 % Normal 0.0-1.5 [facility] Comment on above: Performed By: #### 0 0121, 68888, 74842, 47542, 25100 #### [facility] [address] [place] [address], [place] FIO2 40 % Normal [facility] Comment on above: Performed By: #### 0 0121, 76746, 64348, 10979, 34003 #### [facility] [address] [place] [address], [place] HCO3 (Bld) [Moles/Vol] 24 mmol/L Normal 21-28 [facility] Comment on above: Performed By: #### 0 0121, 65005, 78963, 65555, 30234 #### [facility] [address] [place] [address], [place] METHB 1.1 % Normal 0.0-1.5 [facility] Comment on above: Performed By: #### 0 0121, 27253, 85257, 95949, 77908 #### [facility] [address] [place] [address], [place] MIN VOLUME 13.1 Normal [facility] Comment on above: Performed By: #### 0 0121, 02423, 59515, 79807, 73506 #### [facility] [address] [place] [address], [place] MODALITY Positive Normal [facility] Comment on above: Performed By: #### 0 0121, 80160, 61320, 78229, 80204 #### [facility] [address] [place] [address], [place] Oxygen (Bld) [Partial pressure] 86 mm[Hg] Normal 83-108 [facility] Comment on above: Performed By: #### 0 0121, 86504, 55986, 14083, 13639 #### [facility] [address] [place] [address], [place] Oxygen saturation in Blood 94.8 % Normal 94.0-97.0 [facility] Comment on above: Performed By: #### 0 0121, 47368, 81861, 82035, 77307 #### [facility] [address] [place] [address], [facility] PCO2 32 mmHg Low 35-45 [facility] Comment on above: Performed By: #### 0 0121, 02640, 18746, 56120, 41233 #### [facility] [address] [place] [address], [facility] PEEP 8.0 CMH20 Normal [facility] Comment on above: Performed By: #### 0 0121, 24593, 63408, 33777, 01773 #### [facility] [address] [place] [address], [facility] pH (Bld) 7.49 [pH] High 7.35-7.45 [facility] Comment on above: Result Comment: KINJAL REYNOSO NOTE: Effective 12/02/18, reference ranges for Respiratory GEM analyzers running arterial blood have been updated to reflect the assistant center director's published reference ranges. Performed By: #### 0 0121, 49794, 72799, 30648, 28834 #### [facility] [address] [place] [address], [facility] PRESSURE SUPPORT [address] [facility] Comment on above: Performed By: #### 0 0121, 20105, 07524, 63566, 57477 #### [facility] [address] [place] [address], [facility] THB 10.3 g/dL Low 12.0-16.3 [facility] Comment on above: Performed By: #### 0 0121, 86136, 10567, 03731, 97717 #### [facility] [address] [place] [address], [facility] ARTERIAL BLOOD GAS WITH ICAo n 03-21-2019 BASE EXCESS 4 mmol/L High -2-3 The [facility] Comment on above: Performed By: #### 0 0121, 93265, 94995, 50581, 84218 #### [facility] [address] [place] [address], [facility] [employer] [place] Normal [facility] Comment on above: Performed By: #### 0 0121, 81973, 17013, 33018, 59077 #### [facility] [address] [place] [address], [place] HCO3 (Bld) [Moles/Vol] 27 mmol/L Normal 21-28 [facility] Comment on above: Performed By: #### 0 0121, 62586, 43000, 28469, 08811 #### [facility] [address] [place] [address], [facility] IONIZED CALCIUM 1.17 mmol/L Normal 1.13-1.[address] [facility] Comment on above: Performed By: #### 0 0121, 63433, 58545, 78681, 52509 #### [facility] [address] [place] [address], [place] LPM 6.0 LPM Normal [facility] Comment on above: Performed By: #### 0 0121, 10847, 97992, 44710, 94683 #### [facility] [address] [place] [address], [place] Oxygen (Bld) [Partial pressure] 67 mm[Hg] Low 83-108 [facility] Comment on above: Performed By: #### 0 0121, 06365, 29774, 06579, 72786 #### [facility] [address] [place] [address], [place] Oxygen saturation in Blood 92.7 % Low 94.0-97.0 [facility] Comment on above: Performed By: #### 0 0121, 67551, 67728, 20677, 00312 #### [facility] [address] [place] [address], [facility] PCO2 36 mmHg Normal 35-45 [facility] Comment on above: Performed By: #### 0 0121, 97560, 79355, 92249, 27725 #### [facility] [address] [place] [address], [place] pH (Bld) 7.49 [pH] High 7.35-7.45 [facility] Comment on above: Result Comment: KINJAL REYNOSO NOTE: Effective 12/02/18, reference ranges for Respiratory GEM analyzers running arterial blood have been updated to reflect the assistant center director's published reference ranges. Performed By: #### 0 0121, 61415, 05254, 34265, 42801 #### [facility] [address] [place] [address], [facility] BASE EXCESS 1 mmol/L Normal -2-3 The [facility] Comment on above: Performed By: #### 0 0121, 65698, 37742, 68648, 65441 #### [facility] [address] [place] [address], [place] [employer] SYSTEM[employer] VENTILATOR Normal [facility] Comment on above: Performed By: #### 0 0121, 79130, 50976, 40526, 45818 #### [facility] [address] [place] [address], [place] FIO2 40 % Normal [facility] Comment on above: Performed By: #### 0 0121, 91268, 41133, 14570, 07910 #### [facility] [address] [place] [address], [place] HCO3 (Bld) [Moles/Vol] 24 mmol/L Normal 21-28 [facility] Comment on above: Performed By: #### 0 0121, 03527, 57289, 46976, 83376 #### [facility] [address] [place] [address], [place] IONIZED CALCIUM 1.07 mmol/L Low 1.13-1.[address] [facility] Comment on above: Performed By: #### 0 0121, 38239, 22178, 09676, 09936 #### [facility] [address] [place] [address], [place] MIN VOLUME 15.6 Normal [facility] Comment on above: Performed By: #### 0 0121, 79279, 15248, 86992, 07259 #### [facility] [address] [place] [address], [place] MODALITY Positive Normal [facility] Comment on above: Performed By: #### 0 0121, 28259, 67567, 43245, 25868 #### [facility] [address] [place] [address], [place] Oxygen (Bld) [Partial pressure] 89 mm[Hg] Normal 83-108 [facility] Comment on above: Performed By: #### 0 0121, 85342, 64171, 29748, 62234 #### [facility] [address] [place] [address], [place] Oxygen saturation in Blood 94.7 % Normal 94.0-97.0 [facility] Comment on above: Performed By: #### 0 0121, 94571, 01300, 47336, 09687 #### [facility] [address] [place] [address], [place] PCO2 30 mmHg Low 35-45 [facility] Comment on above: Performed By: #### 0 0121, 51605, 15759, 73659, 01613 #### [facility] [address] [place] [address], [place] PEEP 8.0 CMH20 Normal [facility] Comment on above: Performed By: #### 0 0121, 14260, 60951, 05407, 98207 #### [facility] [address] [place] [address], [place] pH (Bld) 7.51 [pH] High 7.35-7.45 [facility] Comment on above: Result Comment: KINJAL REYNOSO NOTE: Effective 12/02/18, reference ranges for Respiratory GEM analyzers running arterial blood have been updated to reflect the assistant center director's published reference ranges. Performed By: #### 0 0121, 12793, 54427, 86124, 56010 #### [facility] [address] [place] [address], [facility] PRESSURE SUPPORT [address] [facility] Comment on above: Performed By: #### 0 0121, 64895, 61849, 47076, 26146 #### [facility] [address] [place] [address], [facility] BASE EXCESS 0 mmol/L Normal -2-3 The [facility] Comment on above: Performed By: #### 0 0121, 01801, 90696, 59008, 45882 #### [facility] [address] [place] [address], [facility] [employer] MV Normal [facility] Comment on above: Performed By: #### 0 0121, 88556, 63769, 51161, 52711 #### [facility] [address] [place] [address], [facility] FIO2 40 % Normal [facility] Comment on above: Performed By: #### 0 0121, 01593, 73376, 53950, 85131 #### [facility] [address] [place] [address], [place] HCO3 (Bld) [Moles/Vol] 23 mmol/L Normal 21-28 [facility] Comment on above: Performed By: #### 0 0121, 89945, 75933, 80570, 73281 #### [facility] [address] [place] [address], [place] IONIZED CALCIUM 1.07 mmol/L Low 1.13-1.[address] [facility] Comment on above: Performed By: #### 0 0121, 02091, 95206, 71528, 23019 #### [facility] [address] [place] [address], [place] MIN VOLUME 17.0 Normal [facility] Comment on above: Performed By: #### 0 0121, 68627, 37585, 31927, 81424 #### [facility] [address] [place] [address], [place] MODALITY AC Normal [facility] Comment on above: Performed By: #### 0 0121, 65828, 22906, 07425, 59644 #### [facility] [address] [place] [address], [place] Oxygen (Bld) [Partial pressure] 94 mm[Hg] Normal 83-108 The [facility] Comment on above: Performed By: #### 0 0121, 39642, 06478, 72745, 54810 #### [facility] [address] [place] [address], [place] Oxygen saturation in Blood 95.1 % Normal 94.0-97.0 [facility] Comment on above: Performed By: #### 0 0121, 95596, 36564, 88626, 87928 #### [facility] [address] [place] [address], [place] PCO2 30 mmHg Low 35-45 [facility] Comment on above: Performed By: #### 0 0121, 71373, 91176, 23265, 24629 #### [facility] [address] [place] [address], [place] PEEP 8.0 CMH20 Normal [facility] Comment on above: Performed By: #### 0 0121, 47541, 83264, 15048, 88663 #### [facility] [address] [place] [address], [place] pH (Bld) 7.49 [pH] High 7.35-7.45 [facility] [place] [facility] Comment on above: Result Comment: KINJAL REYNOSO NOTE: Effective 12/02/18, reference ranges for Respiratory GEM analyzers running arterial blood have been updated to reflect the assistant center director's published reference ranges. Performed By: #### 0 0121, 95762, 68860, 01010, 01196 #### [facility] [address] [place] [address], [facility] TIDAL VOLUME (VT) CC 700 cc Normal [facility] Comment on above: Performed By: #### 0 0121, 28041, 99904, 83212, 40044 #### [facility] [address] [place] [address], [facility] BASE EXCESS 0 mmol/L Normal -2-3 The [facility] Comment on above: Performed By: #### 0 0121, 75071, 65950, 18375, 80296 #### [facility] [address] [place] [address], [facility] DELIVERY SYSTEMS MV Normal [facility] Comment on above: Performed By: #### 0 0121, 62217, 67921, 37862, 18573 #### [facility] [address] [place] [address], [facility] FIO2 50 % Normal [facility] Comment on above: Performed By: #### 0 0121, 38371, 97649, 61869, 79002 #### [facility] [address] [place] [address], [facility] HCO3 (Bld) [Moles/Vol] 23 mmol/L Normal 21-28 [facility] Comment on above: Performed By: #### 0 0121, 83087, 85593, 48911, 32777 #### [facility] [address] [place] [address], [facility] IONIZED CALCIUM 1.14 mmol/L Normal 1.13-1.[address] [facility] Comment on above: Performed By: #### 0 0121, 74340, 88026, 93214, 62034 #### [facility] [address] [place] [address], [place] MIN VOLUME 13.3 Normal [facility] Comment on above: Performed By: #### 0 0121, 34655, 44974, 64901, 20204 #### [facility] [address] [place] [address], [place] MODALITY AC Normal [facility] Comment on above: Performed By: #### 0 0121, 32268, 63182, 80947, 10152 #### [facility] [address] [place] [address], [place] Oxygen (Bld) [Partial pressure] 71 mm[Hg] Low 83-108 [facility] Comment on above: Performed By: #### 0 0121, 47957, 08459, 82113, 94368 #### [facility] [address] [place] [address], [place] Oxygen saturation in Blood 92.6 % Low 94.0-97.0 [facility] Comment on above: Performed By: #### 0 0121, 28925, 56284, 23051, 69128 #### [facility] [address] [place] [address], [place] PCO2 31 mmHg Low 35-45 [facility] Comment on above: Performed By: #### 0 0121, 47343, 06072, 85383, 81692 #### [facility] [address] [place] [address], [place] PEEP 8.0 CMH20 Normal [facility] Comment on above: Performed By: #### 0 0121, 43309, 46304, 00313, 63293 #### [facility] [address] [place] [address], [place] PF RATIO 142 mmHg Normal [facility] Comment on above: Performed By: #### 0 0121, 33676, 95089, 76033, 23182 #### [facility] [address] [place] [address], [facility] pH (Bld) 7.47 [pH] High 7.35-7.45 [facility] Comment on above: Result Comment: KINJAL REYNOSO NOTE: Effective 12/02/18, reference ranges for Respiratory GEM analyzers running arterial blood have been updated to reflect the assistant center director's published reference ranges. Performed By: #### 0 0121, 87317, 22629, 01535, 05619 #### [facility] [address] [place] [address], [facility] [facility] TIDAL VOLUME (VT) CC 700 cc Normal [facility] Comment on above: Performed By: #### 0 0121, 79934, 35496, 77860, 79604 #### [facility] [address] [place] [address], [facility] BASIC METABOLIC PANELon 06-2 Calcium [Mass/Vol] 8.6 mg/dL Normal 8.6-10.3 [facility] Comment on above: Order Comment: << On admission If not done in ED>> No: Do not add to previous draw Performed By: #### 0 0121, 94799, 67629, 03935, 15706 #### [facility] [address] [place] [address], [facility] Chloride [Moles/Vol] 104 mmol/L Normal 98-107 [facility] Comment on above: Order Comment: << On admission If not done in ED>> No: Do not add to previous draw Performed By: #### 0 0121, 49082, 22641, 75932, 33199 #### [facility] [address] [place] [address], [facility] CO2 [Moles/Vol] 26 mmol/L Normal 21-31 [facility] Comment on above: Order Comment: << On admission If not done in ED>> No: Do not add to previous draw Performed By: #### 0 0121, 68483, 62531, 00899, 05223 #### [facility] [address] [place] [address], [place] Creatinine [Mass/Vol] 1.48 mg/dL High 0.70-1.30 [facility] Comment on above: Order Comment: << On admission If not done in ED>> No: Do not add to previous draw Performed By: #### 0 0121, 59966, 06715, 61320, 80352 #### [facility] [address] [place] [address], [facility] GFR/1.73 sq M predicted among blacks MDRD (S/P/Bld) [Vol rate/Area] 60 ml/min/1.73sq m Abnormal >60 [facility] Comment on above: Order Comment: << On admission If not done in ED>> No: Do not add to previous draw Performed By: #### 0 0121, 24042, 91338, 26651, 00373 #### [facility] [address] [place] [address], [facility] GFR/1.73 sq M predicted among non-blacks MDRD (S/P/Bld) [Vol rate/Area] 50 ml/min/1.73sq m Abnormal >60 [facility] Comment on above: Order Comment: << On admission If not done in ED>> No: Do not add to previous draw Performed By: #### 0 0121, 52668, 99147, 07785, 01075 #### [facility] [address] [place] [address], [place] Glucose [Mass/Vol] 115 mg/dL High 70-100 [facility] Comment on above: Order Comment: << On admission If not done in ED>> No: Do not add to previous draw Performed By: #### 0 0121, 12514, 63310, 52824, 71061 #### [facility] [address] [place] [address], [facility] Potassium [Moles/Vol] 3.4 mmol/L Low 3.5-5.1 [facility] Comment on above: Order Comment: << On admission If not done in ED>> No: Do not add to previous draw Performed By: #### 0 0121, 41215, 95476, 36646, 34363 #### [facility] [address] [place] [address], [place] Sodium [Moles/Vol] 138 mmol/L Normal 136-145 [facility] Comment on above: Order Comment: << On admission If not done in ED>> No: Do not add to previous draw Performed By: #### 0 0121, 10169, 76634, 38237, 08649 #### [facility] [address] [place] [address], [facility] Urea nitrogen [Mass/Vol] 23 mg/dL Normal 7-25 [facility] Comment on above: Order Comment: << On admission If not done in ED>> No: Do not add to previous draw Performed By: #### 0 0121, 18712, 83515, 15804, 88523 #### [facility] [address] [place] [address], [place] Calcium [Mass/Vol] 8.1 mg/dL Low 8.6-10.3 [facility] Comment on above: Order Comment: << On admission If not done in ED>> No: Do not add to previous draw Performed By: #### 0 0121, 33183, 94565, 01522, 72587 #### [facility] [address] [place] [address], [place] Chloride [Moles/Vol] 105 mmol/L Normal 98-107 [facility] Comment on above: Order Comment: << On admission If not done in ED>> No: Do not add to previous draw Performed By: #### 0 0121, 66473, 84486, 82380, 71756 #### [facility] [address] [place] [address], [place] CO2 [Moles/Vol] 26 mmol/L Normal 21-31 [facility] Comment on above: Order Comment: << On admission If not done in ED>> No: Do not add to previous draw Performed By: #### 0 0121, 08434, 67384, 18742, 51630 #### [facility] [address] [place] [address], [place] Creatinine [Mass/Vol] 1.37 mg/dL High 0.70-1.30 [facility] Comment on above: Order Comment: << On admission If not done in ED>> No: Do not add to previous draw Performed By: #### 0 0121, 67228, 12744, 38097, 32844 #### [facility] [address] [place] [address], [place] GFR/1.73 sq M predicted among blacks MDRD (S/P/Bld) [Vol rate/Area] mL/min/{1.73_m2} Normal >60 [facility] Comment on above: Order Comment: << On admission If not done in ED>> No: Do not add to previous draw Performed By: #### 0 0121, 97007, 89469, 08113, 89598 #### [facility] [address] [place] [address], [place] GFR/1.73 sq M predicted among non-blacks MDRD (S/P/Bld) [Vol rate/Area] 54 ml/min/1.73sq m Abnormal >60 [facility] Comment on above: Order Comment: << On admission If not done in ED>> No: Do not add to previous draw Performed By: #### 0 0121, 20368, 49353, 50895, 82004 #### [facility] [address] [place] [address], [place] Glucose [Mass/Vol] 113 mg/dL High 70-100 [facility] Comment on above: Order Comment: << On admission If not done in ED>> No: Do not add to previous draw Performed By: #### 0 0121, 20420, 63937, 40855, 60949 #### [facility] [address] [place] [address], [place] Potassium [Moles/Vol] 3.3 mmol/L Low 3.5-5.1 [facility] Comment on above: Order Comment: << On admission If not done in ED>> No: Do not add to previous draw Performed By: #### 0 0121, 45490, 79386, 88776, 00410 #### [facility] [address] [place] [address], [place] Sodium [Moles/Vol] 138 mmol/L Normal 136-145 [facility] Comment on above: Order Comment: << On admission If not done in ED>> No: Do not add to previous draw Performed By: #### 0 0121, 04543, 27431, 35795, 54420 #### [facility] [address] [place] [address], [place] Urea nitrogen [Mass/Vol] 19 mg/dL Normal 7-25 [facility] Comment on above: Order Comment: << On admission If not done in ED>> No: Do not add to previous draw Performed By: #### 0 0121, 23250, 38263, 87837, 29375 #### [facility] [address] [place] [address], [place] Calcium [Mass/Vol] 7.4 mg/dL Low 8.6-10.3 [facility] Comment on above: Order Comment: << On admission If not done in ED>> No: Do not add to previous draw Performed By: #### 0 0121, 72062, 54216, 68763, 80022 #### [facility] [address] [place] [address], [place] Chloride [Moles/Vol] 109 mmol/L High 98-107 [facility] Comment on above: Order Comment: << On admission If not done in ED>> No: Do not add to previous draw Performed By: #### 0 0121, 59674, 44370, 86641, 29451 #### [facility] [address] [place] [address], [facility] CO2 [Moles/Vol] 21 mmol/L Normal 21-31 [facility] Comment on above: Order Comment: << On admission If not done in ED>> No: Do not add to previous draw Performed By: #### 0 0121, 97561, 85564, 15677, 91143 #### [facility] [address] [place] [address], [facility] Creatinine [Mass/Vol] 1.22 mg/dL Normal 0.70-1.30 [facility] Comment on above: Order Comment: << On admission If not done in ED>> No: Do not add to previous draw Performed By: #### 0 0121, 74458, 76165, 78669, 19970 #### [facility] [address] [place] [address], [facility] GFR/1.73 sq M predicted among blacks MDRD (S/P/Bld) [Vol rate/Area] mL/min/{1.73_m2} Normal >60 [facility] Comment on above: Order Comment: << On admission If not done in ED>> No: Do not add to previous draw Performed By: #### 0 0121, 98081, 29616, 13442, 06381 #### [facility] [address] [place] [address], [facility] GFR/1.73 sq M predicted among non-blacks MDRD (S/P/Bld) [Vol rate/Area] mL/min/{1.73_m2} Normal >60 [facility] Comment on above: Order Comment: << On admission If not done in ED>> No: Do not add to previous draw Performed By: #### 0 0121, 62776, 39456, 29895, 36375 #### [facility] [address] [place] [address], [facility] Glucose [Mass/Vol] 129 mg/dL High 70-100 [facility] Comment on above: Order Comment: << On admission If not done in ED>> No: Do not add to previous draw Performed By: #### 0 0121, 11086, 30423, 72821, 65323 #### [facility] [address] [place] [address], [facility] Potassium [Moles/Vol] 3.1 mmol/L Low 3.5-5.1 [facility] Comment on above: Order Comment: << On admission If not done in ED>> No: Do not add to previous draw Performed By: #### 0 0121, 04526, 42216, 08470, 29244 #### [facility] [address] [place] [address], [facility] Sodium [Moles/Vol] 139 mmol/L Normal 136-145 [facility] Comment on above: Order Comment: << On admission If not done in ED>> No: Do not add to previous draw Performed By: #### 0 0121, 04655, 24067, 19110, 05388 #### [facility] [address] [place] [address], [facility] Urea nitrogen [Mass/Vol] 17 mg/dL Normal 7-25 [facility] Comment on above: Order Comment: << On admission If not done in ED>> No: Do not add to previous draw Performed By: #### 0 0121, 60111, 98665, 48485, 62700 #### [facility] [address] [place] [address], [facility] CBC COMPLETE BLOOD COUNTon 0 - Erythrocyte distribution width (RBC) [Ratio] 13.5 % Normal 11.5-15.0 [facility] Comment on above: Order Comment: << On admission If not done in ED>> No: Do not add to previous draw Performed By: #### 0 0121, 20890, 16473, 06815, 71239 #### [facility] [address] [place] [address], [facility] Hematocrit (Bld) [Volume fraction] 33.7 % Low 39.0-50.0 [facility] Comment on above: Order Comment: << On admission If not done in ED>> No: Do not add to previous draw Performed By: #### 0 0121, 69160, 01479, 21742, 06659 #### [facility] [address] [place] [address], [facility] Hemoglobin (Bld) [Mass/Vol] 10.9 g/dL Low 13.0-17.0 [facility] Comment on above: Order Comment: << On admission If not done in ED>> No: Do not add to previous draw Performed By: #### 0 0121, 32109, 76555, 27388, 98502 #### [facility] [address] [place] [address], [facility] MCH (RBC) [Entitic mass] 29.3 pg Normal 27.0-33.0 [facility] Comment on above: Order Comment: << On admission If not done in ED>> No: Do not add to previous draw Performed By: #### 0 0121, 60728, 09650, 05450, 42836 #### [facility] [address] [place] [address], [place] MCHC (RBC) [Mass/Vol] 32.3 g/dL Normal 32.0-35.0 [facility] Comment on above: Order Comment: << On admission If not done in ED>> No: Do not add to previous draw Performed By: #### 0 0121, 14528, 70175, 93717, 94164 #### [facility] [address] [place] [address], [facility] MCV (RBC) [Entitic vol] 90.6 fL Normal 82.0-98.0 [facility] Comment on above: Order Comment: << On admission If not done in ED>> No: Do not add to previous draw Performed By: #### 0 0121, 40343, 45926, 57147, 08623 #### [facility] [address] [place] [address], [facility] Nucleated RBC/100 WBC (Bld) [Ratio] 0 % Normal 0-0 [facility] Comment on above: Order Comment: << On admission If not done in ED>> No: Do not add to previous draw Performed By: #### 0 0121, 38888, 43197, 65490, 37063 #### [facility] [address] [place] [address], [place] PLAT CNT 100 10*3/uL Low 150-400 [facility] Comment on above: Order Comment: << On admission If not done in ED>> No: Do not add to previous draw Performed By: #### 0 0121, 87137, 57961, 55187, 45726 #### [facility] [address] [place] [address], [facility] RBC (Bld) [#/Vol] 3.72 10*6/uL Low 4.20-5.70 [facility] Comment on above: Order Comment: << On admission If not done in ED>> No: Do not add to previous draw Performed By: #### 0 0121, 82503, 60762, 60905, 79783 #### [facility] [address] [place] [address], [place] WBC (Bld) [#/Vol] 17.24 10*3/uL High 4.00-10.60 [facility] Comment on above: Order Comment: << On admission If not done in ED>> No: Do not add to previous draw Performed By: #### 0 0121, 93483, 35505, 49308, 90526 #### [facility] [address] [facility] [address] Erythrocyte distribution width (RBC) [Ratio] 13.5 % Normal 11.5-15.0 [facility] Comment on above: Order Comment: << On admission If not done in ED>> No: Do not add to previous draw Performed By: #### 0 0121, 26806, 69242, 72704, 38058 #### [facility] [address] Hematocrit (Bld) [Volume fraction] 35.2 % Low 39.0-50.0 [facility] Comment on above: Order Comment: << On admission If not done in ED>> No: Do not add to previous draw Performed By: #### 0 0121, 58516, 36545, 81360, 94215 #### [facility] [address] [facility] Hemoglobin (Bld) [Mass/Vol] 11.5 g/dL Low 13.0-17.0 [facility] Comment on above: Order Comment: << On admission If not done in ED>> No: Do not add to previous draw Performed By: #### 0 0121, 28437, 38482, 77678, 74991 #### [facility] [address] IMM PLATELET FRAC 4.3 % Normal 0.8-6.3 [facility] Comment on above: Order Comment: << On admission If not done in ED>> No: Do not add to previous draw Performed By: #### 0 0121, 89606, 48111, 06054, 35896 #### [facility] [address] MCH (RBC) [Entitic mass] 29.4 pg Normal 27.0-33.0 [facility] Comment on above: Order Comment: << On admission If not done in ED>> No: Do not add to previous draw Performed By: #### 0 0121, 30976, 11314, 08848, 58559 #### [facility] [address] [facility] [place] [address], [facility] MCHC (RBC) [Mass/Vol] 32.7 g/dL Normal 32.0-35.0 [facility] Comment on above: Order Comment: << On admission If not done in ED>> No: Do not add to previous draw Performed By: #### 0 0121, 20816, 21773, 65745, 71685 #### [facility] [address] [place] [address], [facility] MCV (RBC) [Entitic vol] 90.0 fL Normal 82.0-98.0 [facility] Comment on above: Order Comment: << On admission If not done in ED>> No: Do not add to previous draw Performed By: #### 0 0121, 89485, 72428, 43935, 90086 #### [facility] [address] [facility] Nucleated RBC/100 WBC (Bld) [Ratio] 0 % Normal 0-0 [facility] Comment on above: Order Comment: << On admission If not done in ED>> No: Do not add to previous draw Performed By: #### 0 0121, 60783, 95066, 29045, 64317 #### [facility] [address] [facility] [place] [address], [facility] PLAT CNT 99 10*3/uL Low 150-400 [facility] Comment on above: Order Comment: << On admission If not done in ED>> No: Do not add to previous draw Performed By: #### 0 0121, 44329, 06851, 71725, 60982 #### [facility] [address] [place] [address], [facility] RBC (Bld) [#/Vol] 3.91 10*6/uL Low 4.20-5.70 [facility] Comment on above: Order Comment: << On admission If not done in ED>> No: Do not add to previous draw Performed By: #### 0 0121, 51006, 92614, 02898, 52474 #### [facility] [address] [place] [address], [facility] WBC (Bld) [#/Vol] 19.55 10*3/uL High 4.00-10.60 [facility] Comment on above: Order Comment: << On admission If not done in ED>> No: Do not add to previous draw Performed By: #### 0 0121, 09463, 90610, 24177, 06444 #### [facility] [address] [place] [address], [facility] Erythrocyte distribution width (RBC) [Ratio] 13.5 % Normal 11.5-15.0 [facility] Comment on above: Order Comment: << On admission If not done in ED>> No: Do not add to previous draw Performed By: #### 0 0121, 27250, 24633, 11425, 78808 #### [facility] [address] [place] [address], [facility] Hematocrit (Bld) [Volume fraction] 38.1 % Low 39.0-50.0 [facility] Comment on above: Order Comment: << On admission If not done in ED>> No: Do not add to previous draw Performed By: #### 0 0121, 87244, 01946, 11017, 82376 #### [facility] [address] [place] [address], [facility] Hemoglobin (Bld) [Mass/Vol] 12.2 g/dL Low 13.0-17.0 [facility] Comment on above: Order Comment: << On admission If not done in ED>> No: Do not add to previous draw Performed By: #### 0 0121, 51525, 98517, 65024, 67582 #### [facility] [address] IMM PLATELET FRAC 3.8 % Normal 0.8-6.3 [facility] Comment on above: Order Comment: << On admission If not done in ED>> No: Do not add to previous draw Performed By: #### 0 0121, 37846, 51782, 28103, 33745 #### [facility] [address] [place] [address], [facility] MCH (RBC) [Entitic mass] 29.0 pg Normal 27.0-33.0 [facility] Comment on above: Order Comment: << On admission If not done in ED>> No: Do not add to previous draw Performed By: #### 0 0121, 82019, 55094, 34439, 48988 #### [facility] [address] MCHC (RBC) [Mass/Vol] 32.0 g/dL Normal 32.0-35.0 [facility] Comment on above: Order Comment: << On admission If not done in ED>> No: Do not add to previous draw Performed By: #### 0 0121, 70557, 29690, 92435, 85057 #### [facility] [address] [facility] MCV (RBC) [Entitic vol] 90.7 fL Normal 82.0-98.0 [facility] Comment on above: Order Comment: << On admission If not done in ED>> No: Do not add to previous draw Performed By: #### 0 0121, 33907, 63107, 85776, 23254 #### [facility] [address] [facility] Nucleated RBC/100 WBC (Bld) [Ratio] 0 % Normal 0-0 [facility] Comment on above: Order Comment: << On admission If not done in ED>> No: Do not add to previous draw Performed By: #### 0 0121, 55580, 80313, 38574, 50502 #### [facility] [address] [place] [address], [facility] PLAT CNT 112 10*3/uL Low 150-400 [facility] Comment on above: Order Comment: << On admission If not done in ED>> No: Do not add to previous draw Performed By: #### 0 0121, 53634, 20346, 07382, 85148 #### [facility] [address] [place] [address], [facility] RBC (Bld) [#/Vol] 4.20 10*6/uL Normal 4.20-5.70 [facility] Comment on above: Order Comment: << On admission If not done in ED>> No: Do not add to previous draw Performed By: #### 0 0121, 11965, 52406, 43599, 78170 #### [facility] [address] [place] [address], [facility] WBC (Bld) [#/Vol] 21.05 10*3/uL High 4.00-10.60 [facility] Comment on above: Order Comment: << On admission If not done in ED>> No: Do not add to previous draw Performed By: #### 0 0121, 35866, 50338, 47159, 91046 #### [facility] [address] [place] [address], [facility] COOXIMETRYon 03-21-2019 COHB 1 % Normal [facility] Comment on above: Performed By: #### 0 0121, 93511, 08596, 06585, 55794 #### [facility] [address] [place] [address], [facility] METHB 1 % Normal [facility] Comment on above: Performed By: #### 0 0121, 87434, 66345, 29514, 04546 #### [facility] [address] [place] [address], [facility] Oxygen saturation in Blood 59.8 % Low 65.0-75.0 [facility] Comment on above: Performed By: #### 0 0121, 24727, 94461, 96152, 42068 #### [facility] [address] [place] [address], [place] THB 10.9 g/dL Normal [facility] Comment on above: Performed By: #### 0 0121, 70034, 22107, 31273, 39062 #### [facility] [address] [place] [address], [place] COHB 2 % Normal [facility] Comment on above: Performed By: #### 0 0121, 55444, 74006, 05162, 87919 #### [facility] [address] [place] [address], [place] METHB 1 % Normal [facility] Comment on above: Performed By: #### 0 0121, 55897, 68406, 70241, 59254 #### [facility] [address] [place] [address], [place] Oxygen saturation in Blood 70.2 % Normal 65.0-75.0 [facility] Comment on above: Performed By: #### 0 0121, 20220, 43068, 44498, 16654 #### [facility] [address] [place] [address], [place] THB 11.5 g/dL Normal [facility] Comment on above: Performed By: #### 0 0121, 93170, 87746, 73972, 72574 #### [facility] [address] [place] [address], [place] MAGNESIUM BLOODon 03-21-2019 Magnesium [Mass/Vol] 2.1 mg/dL Normal 1.9-2.7 [facility] Comment on above: Order Comment: << On admission If not done in ED>> No: Do not add to previous draw Performed By: #### 0 0121, 03918, 50423, 98328, 17781 #### [facility] [address] [place] [address], [place] Magnesium [Mass/Vol] 2.1 mg/dL Normal 1.9-2.7 The [facility] Comment on above: Order Comment: << On admission If not done in ED>> No: Do not add to previous draw Performed By: #### 0 0121, 52967, 85974, 22766, 86642 #### [facility] [address] [place] [address], [place] Magnesium [Mass/Vol] 2.2 mg/dL Normal 1.9-2.7 [facility] Comment on above: Order Comment: << On admission If not done in ED>> No: Do not add to previous draw Performed By: #### 0 0121, 10901, 88157, 52896, 96952 #### [facility] [address] [place] [address], [place] POC GLUCOSE LABon 03-21-2019 Glucose [Mass/Vol] 107 mg/dL High 70-100 [facility] Comment on above: Performed By: #### 0 0121, 05326, 51733, 25737, 27667 #### [facility] [address] [place] [address], [place] Glucose [Mass/Vol] 103 mg/dL High 70-100 [facility] Comment on above: Performed By: #### 0 0121, 06209, 47881, 28725, 33168 #### [facility] [address] [place] [address], [place] Glucose [Mass/Vol] 112 mg/dL High 70-100 [facility] Comment on above: Performed By: #### 0 0121, 99530, 03208, 09340, 25358 #### [facility] [address] [place] [address], [place] Glucose [Mass/Vol] 127 mg/dL High 70-100 [facility] Comment on above: Performed By: #### 0 0121, 05596, 27508, 87130, 99107 #### [facility] [address] [place] [address], [place] Glucose [Mass/Vol] 95 mg/dL Normal 70-100 [facility] Comment on above: Performed By: #### 0 0121, 81170, 36545, 41643, 07469 #### [facility] [address] [place] [address], [place] Glucose [Mass/Vol] 104 mg/dL High 70-100 [facility] Comment on above: Performed By: #### 0 0121, 72852, 86367, 45253, 67508 #### [facility] [address] [place] [address], [place] Glucose [Mass/Vol] 98 mg/dL Normal 70-100 [facility] Comment on above: Performed By: #### 0 0121, 17519, 05319, 22693, 43631 #### [facility] [address] [place] [address], [place] Glucose [Mass/Vol] 113 mg/dL High 70-100 [facility] Comment on above: Performed By: #### 0 0121, 89568, 18765, 22654, 03139 #### [facility] [address] [place] [address], [place] Glucose [Mass/Vol] 130 mg/dL High 70-100 [facility] Comment on above: Performed By: #### 0 0121, 69721, 75351, 21046, 66904 #### [facility] [address] [place] [address], [place] Glucose [Mass/Vol] 130 mg/dL High 70-100 [facility] Comment on above: Performed By: #### 0 0121, 33026, 53552, 34201, 84195 #### [facility] [address] [place] [address], [place] Glucose [Mass/Vol] 129 mg/dL High 70-100 The [facility] Comment on above: Performed By: #### 0 0121, 04069, 23558, 39881, 24008 #### [facility] [address] [place] [address], [place] Glucose [Mass/Vol] 108 mg/dL High 70-100 The [facility] Comment on above: Performed By: #### 0 0121, 52886, 39640, 47227, 72176 #### [facility] [address] [place] [address], [place] Glucose [Mass/Vol] 101 mg/dL High 70-100 [facility] Comment on above: Performed By: #### 0 0121, 21804, 47513, 45193, 20950 #### [facility] [address] [place] [address], [facility] PORTABLE CHEST 1 VIEWon 03-01 PORTABLE CHEST 1 VIEW [facility] Department of Radiology [address] [place] [id number] ======== Patient Name: TRACIE CRAIN : 1965 Sex: M Age: Race: NA Pt. Location: [id number] Patient Status: I Ordered Date: 03/21/2019 5:00:00 [...] of field of view, in satisfactory position. [place] catheter is again seen with tip projecting [...] findings. Electronically signed by:Yenni Osuna. Transcribed by: [email or web address], User Resident: [email or web address] FINLEY Electronically Signed by: YENNI OSUNA @ 03/22/2019 01:07 PM I personally read this/these film(s) with this resident Normal [facility] Comment on above: Order Comment: << On admission If not done in ED>> No: Do not add to previous draw ARTERIAL BLOOD GAS WITH ICAo n 03-20-2019 BASE EXCESS -4 mmol/L Low -2-3 The [facility] Comment on above: Performed By: #### 0 0121, 51899, 88722, 26129, 09892 #### [facility] [address] [place] [address], [facility] DELIV[employer] VENTILATOR Normal The [facility] Comment on above: Performed By: #### 0 0121, 55174, 96702, 80642, 98875 #### [facility] [address] [place] [address], [place] FIO2 50 % Normal [facility] Comment on above: Performed By: #### 0 0121, 87325, 74197, 84539, 88742 #### [facility] [address] [place] [address], [place] HCO3 (Bld) [Moles/Vol] 19 mmol/L Low 21-28 [facility] Comment on above: Performed By: #### 0 0121, 18063, 70745, 21015, 12037 #### [facility] [address] [place] [address], [place] IONIZED CALCIUM 1.06 mmol/L Low 1.13-1.[address] [facility] Comment on above: Performed By: #### 0 0121, 16364, 07036, 24806, 46344 #### [facility] [address] [place] [address], [facility] MIN VOLUME 14.2 Normal [facility] Comment on above: Performed By: #### 0 0121, 12403, 27946, 04141, 50836 #### [facility] [address] [place] [address], [place] MODALITY AC-ASSIST CONTROL Normal [facility] Comment on above: Performed By: #### 0 0121, 70251, 73402, 87286, 74695 #### [facility] [address] [place] [address], [place] Oxygen (Bld) [Partial pressure] 82 mm[Hg] Low 83-108 The [facility] Comment on above: Performed By: #### 0 0121, 37876, 84436, 78293, 09614 #### [facility] [address] [place] [address], [place] Oxygen saturation in Blood 94.4 % Normal 94.0-97.0 The [facility] Comment on above: Performed By: #### 0 0121, 69753, 73129, 24713, 03612 #### [facility] [address] [place] [address], [place] PCO2 27 mmHg Low 35-45 [facility] Comment on above: Performed By: #### 0 0121, 80397, 29977, 77221, 98281 #### [facility] [address] [place] [address], [place] PEEP 8.0 CMH20 Normal [facility] Comment on above: Performed By: #### 0 0121, 85255, 93574, 40280, 76381 #### [facility] [address] [place] [address], [place] pH (Bld) 7.45 [pH] Normal 7.35-7.45 The [facility] Comment on above: Result Comment: KINJAL REYNOSO NOTE: Effective 12/02/18, reference ranges for Respiratory GEM analyzers running arterial blood have been updated to reflect the assistant center director's published reference ranges. Performed By: #### 0 0121, 15183, 68705, 85763, 20069 #### [facility] [address] [place] [address], [place] TIDAL VOLUME (VT) CC 700 cc Normal [facility] Comment on above: Performed By: #### 0 0121, 39761, 68377, 57895, 47248 #### [facility] [address] [place] [address], [place] BASE EXCESS -2 mmol/L Normal -2-3 The [facility] Comment on above: Performed By: #### 0 0121, 33200, 71411, 85353, 50055 #### [facility] [address] [place] [address], [facility] [employer] MV Normal [facility] Comment on above: Performed By: #### 0 0121, 95641, 60611, 06035, 63653 #### [facility] [address] [place] [address], [place] FIO2 100 % Normal [facility] Comment on above: Performed By: #### 0 0121, 30412, 73145, 49156, 61850 #### [facility] [address] [place] [address], [facility] HCO3 (Bld) [Moles/Vol] 22 mmol/L Normal 21-28 [facility] Comment on above: Performed By: #### 0 0121, 59041, 63368, 94839, 66574 #### [facility] [address] [place] [address], [place] IONIZED CALCIUM 1.18 mmol/L Normal 1.13-1.[address] [facility] Comment on above: Performed By: #### 0 0121, 39578, 74152, 88404, 38375 #### [facility] [address] [place] [address], [facility] MIN VOLUME 13.0 Normal [facility] Comment on above: Performed By: #### 0 0121, 18812, 14081, 39368, 28125 #### [facility] [address] [place] [address], [place] MODALITY AC Normal [facility] Comment on above: Performed By: #### 0 0121, 07304, 91308, 23758, 70096 #### [facility] [address] [place] [address], [place] Oxygen (Bld) [Partial pressure] 109 mm[Hg] Critically high 83-108 The [facility] Comment on above: Performed By: #### 0 0121, 59386, 22839, 82211, 51842 #### [facility] [address] [place] [address], [place] Oxygen saturation in Blood 95.6 % Normal 94.0-97.0 [facility] Comment on above: Performed By: #### 0 0121, 70382, 75883, 98538, 38292 #### [facility] [address] [place] [address], [place] PCO2 33 mmHg Low 35-45 [facility] Comment on above: Performed By: #### 0 0121, 63191, 19334, 31472, 60259 #### [facility] [address] [place] [address], [place] PEEP 10.0 CMH20 Normal [facility] Comment on above: Performed By: #### 0 0121, 86833, 24931, 87963, 90102 #### [facility] [address] [place] [address], [place] PF RATIO 109 mmHg Normal [facility] Comment on above: Performed By: #### 0 0121, 35975, 40670, 22030, 82374 #### [facility] [address] [place] [address], [place] pH (Bld) 7.43 [pH] Normal 7.35-7.45 [facility] Comment on above: Result Comment: KINJAL REYNOSO NOTE: Effective 12/02/18, reference ranges for Respiratory GEM analyzers running arterial blood have been updated to reflect the assistant center director's published reference ranges. Performed By: #### 0 0121, 43595, 20604, 65517, 45287 #### [facility] [address] [place] [address], [place] TIDAL VOLUME (VT) CC 700 cc Normal [facility] Comment on above: Performed By: #### 0 0121, 78847, 17890, 02788, 74654 #### [facility] [address] [place] [address], [facility] BASE EXCESS -4 mmol/L Low -2-3 [facility] Comment on above: Performed By: #### 0 0121, 35694, 50880, 41849, 14491 #### [facility] [address] [place] [address], [facility] DEL[employer] VENTILATOR Normal [facility] Comment on above: Performed By: #### 0 0121, 39990, 99024, 21319, 71809 #### [facility] [address] [place] [address], [facility] FIO2 100 % Normal [facility] Comment on above: Performed By: #### 0 0121, 97484, 04259, 60527, 87809 #### [facility] [address] [place] [address], [facility] HCO3 (Bld) [Moles/Vol] 20 mmol/L Low 21-28 [facility] Comment on above: Performed By: #### 0 0121, 96176, 52692, 01329, 92715 #### [facility] [address] [place] [address], [facility] IONIZED CALCIUM 1.23 mmol/L Normal 1.13-1.[address] [facility] Comment on above: Performed By: #### 0 0121, 32628, 74774, 25879, 41350 #### [facility] [address] [place] [address], [facility] MIN VOLUME 15.1 Normal [facility] Comment on above: Performed By: #### 0 0121, 98795, 20204, 73245, 58241 #### [facility] [address] [place] [address], [facility] MODALITY AC-ASSIST CONTROL Normal [facility] Comment on above: Performed By: #### 0 0121, 83136, 62079, 10388, 27786 #### [facility] [address] [place] [address], [place] Oxygen (Bld) [Partial pressure] 90 mm[Hg] Normal 83-108 [facility] Comment on above: Performed By: #### 0 0121, 22526, 04470, 27992, 90513 #### [facility] [address] [place] [address], [place] Oxygen saturation in Blood 95.1 % Normal 94.0-97.0 [facility] Comment on above: Performed By: #### 0 0121, 89535, 90073, 68786, 51146 #### [facility] [address] [place] [address], [place] PCO2 32 mmHg Low 35-45 [facility] Comment on above: Performed By: #### 0 0121, 76174, 03734, 19109, 68643 #### [facility] [address] [place] [address], [place] PEEP 10.0 CMH20 Normal [facility] Comment on above: Performed By: #### 0 0121, 05604, 43783, 70555, 11124 #### [facility] [address] [place] [address], [place] PF RATIO 900 mmHg Normal [facility] Comment on above: Performed By: #### 0 0121, 59441, 15055, 21075, 51043 #### [facility] [address] [place] [address], [place] pH (Bld) 7.40 [pH] Normal 7.35-7.45 [facility] Comment on above: Result Comment: KINJAL REYNOSO NOTE: Effective 12/02/18, reference ranges for Respiratory GEM analyzers running arterial blood have been updated to reflect the assistant center director's published reference ranges. Performed By: #### 0 0121, 96909, 82135, 69440, 72302 #### [facility] [address] [place] [address], [facility] TIDAL VOLUME (VT) CC 700 cc Normal [facility] Comment on above: Performed By: #### 0 0121, 43406, 44156, 71214, 55463 #### [facility] [address] [place] [address], [place] BASIC METABOLIC PANELon 06-2 Calcium [Mass/Vol] 8.1 mg/dL Low 8.6-10.3 [facility] Comment on above: Order Comment: << On admission If not done in ED>> No: Do not add to previous draw Performed By: #### 0 0121, 96101, 01473, 89555, 61666 #### [facility] [address] [place] [address], [place] Chloride [Moles/Vol] 112 mmol/L High 98-107 [facility] Comment on above: Order Comment: << On admission If not done in ED>> No: Do not add to previous draw Performed By: #### 0 0121, 54617, 63694, 63957, 32182 #### [facility] [address] [place] [address], [facility] CO2 [Moles/Vol] 24 mmol/L Normal 21-31 [facility] Comment on above: Order Comment: << On admission If not done in ED>> No: Do not add to previous draw Performed By: #### 0 0121, 23017, 35171, 56373, 33335 #### [facility] [address] [place] [address], [place] Creatinine [Mass/Vol] 0.97 mg/dL Normal 0.70-1.30 [facility] Comment on above: Order Comment: << On admission If not done in ED>> No: Do not add to previous draw Performed By: #### 0 0121, 10007, 34861, 34904, 27956 #### [facility] [address] [place] [address], [place] GFR/1.73 sq M predicted among blacks MDRD (S/P/Bld) [Vol rate/Area] mL/min/{1.73_m2} Normal >60 [facility] Comment on above: Order Comment: << On admission If not done in ED>> No: Do not add to previous draw Performed By: #### 0 0121, 64886, 48356, 17935, 13151 #### [facility] [address] [place] [address], [place] GFR/1.73 sq M predicted among non-blacks MDRD (S/P/Bld) [Vol rate/Area] mL/min/{1.73_m2} Normal >60 [facility] Comment on above: Order Comment: << On admission If not done in ED>> No: Do not add to previous draw Performed By: #### 0 0121, 49235, 67806, 51745, 91442 #### [facility] [address] [place] [address], [place] Glucose [Mass/Vol] 134 mg/dL High 70-100 [facility] Comment on above: Order Comment: << On admission If not done in ED>> No: Do not add to previous draw Performed By: #### 0 0121, 01057, 91204, 55860, 16805 #### [facility] [address] [place] [address], [place] Potassium [Moles/Vol] 3.9 mmol/L Normal 3.5-5.1 [facility] Comment on above: Order Comment: << On admission If not done in ED>> No: Do not add to previous draw Performed By: #### 0 0121, 05930, 25740, 13950, 05156 #### [facility] [address] [place] [address], [place] Sodium [Moles/Vol] 142 mmol/L Normal 136-145 [facility] Comment on above: Order Comment: << On admission If not done in ED>> No: Do not add to previous draw Performed By: #### 0 0121, 13301, 74469, 57522, 80785 #### [facility] [address] [place] [address], [place] Urea nitrogen [Mass/Vol] 16 mg/dL Normal 7-25 [facility] Comment on above: Order Comment: << On admission If not done in ED>> No: Do not add to previous draw Performed By: #### 0 0121, 06182, 78699, 94749, 82270 #### [facility] [address] [place] [address], [place] Chloride [Moles/Vol] 113 mmol/L High 98-107 [facility] Comment on above: Order Comment: << On admission If not done in ED>> No: Do not add to previous draw Performed By: #### 0 0121, 03596, 13019, 99071, 44455 #### [facility] [address] [place] [address], [place] CO2 [Moles/Vol] 23 mmol/L Normal 21-31 [facility] Comment on above: Order Comment: << On admission If not done in ED>> No: Do not add to previous draw Performed By: #### 0 0121, 39188, 00852, 47163, 69561 #### [facility] [address] [place] [address], [place] Creatinine [Mass/Vol] 1.11 mg/dL Normal 0.70-1.30 [facility] Comment on above: Order Comment: << On admission If not done in ED>> No: Do not add to previous draw Performed By: #### 0 0121, 88032, 95071, 36979, 79517 #### [facility] [address] [place] [address], [place] Glucose [Mass/Vol] 157 mg/dL High 70-100 [facility] Comment on above: Order Comment: << On admission If not done in ED>> No: Do not add to previous draw Performed By: #### 0 0121, 95011, 82760, 32567, 10113 #### [facility] [address] [place] [address], [place] Potassium [Moles/Vol] 4.0 mmol/L Normal 3.5-5.1 [facility] Comment on above: Order Comment: << On admission If not done in ED>> No: Do not add to previous draw Performed By: #### 0 0121, 63960, 88755, 01400, 66998 #### [facility] [address] [place] [address], [place] Sodium [Moles/Vol] 143 mmol/L Normal 136-145 [facility] Comment on above: Order Comment: << On admission If not done in ED>> No: Do not add to previous draw Performed By: #### 0 0121, 82586, 97338, 18242, 05623 #### [facility] [address] [place] [address], [place] Urea nitrogen [Mass/Vol] 17 mg/dL Normal 7-25 [facility] Comment on above: Order Comment: << On admission If not done in ED>> No: Do not add to previous draw Performed By: #### 0 0121, 61278, 11044, 24977, 18682 #### [facility] [address] [place] [address], [place] Calcium [Mass/Vol] 8.7 mg/dL Normal 8.6-10.3 [facility] Comment on above: Order Comment: << On admission If not done in ED>> No: Do not add to previous draw Performed By: #### 0 0121, 57745, 02468, 94506, 85321 #### [facility] [address] [place] [address], [place] CO2 [Moles/Vol] 22 mmol/L Normal 21-31 [facility] Comment on above: Order Comment: << On admission If not done in ED>> No: Do not add to previous draw Performed By: #### 0 0121, 00726, 73742, 71785, 62674 #### [facility] [address] [place] [address], [facility] Creatinine [Mass/Vol] 1.00 mg/dL Normal 0.70-1.30 [facility] Comment on above: Order Comment: << On admission If not done in ED>> No: Do not add to previous draw Performed By: #### 0 0121, 64371, 71478, 58505, 09441 #### [facility] [address] [place] [address], [place] Glucose [Mass/Vol] 126 mg/dL High 70-100 [facility] Comment on above: Order Comment: << On admission If not done in ED>> No: Do not add to previous draw Performed By: #### 0 0121, 04541, 80263, 98918, 21677 #### [facility] [address] [place] [address], [facility] Potassium [Moles/Vol] 4.1 mmol/L Normal 3.5-5.1 [facility] Comment on above: Order Comment: << On admission If not done in ED>> No: Do not add to previous draw Performed By: #### 0 0121, 39171, 88498, 35557, 38003 #### [facility] [address] [place] [address], [place] CBC COMPLETE BLOOD COUNTon 0 - Erythrocyte distribution width (RBC) [Ratio] 13.2 % Normal 11.5-15.0 [facility] Comment on above: Order Comment: << On admission If not done in ED>> No: Do not add to previous draw Performed By: #### 0 0121, 20792, 04794, 11201, 53034 #### [facility] [address] [facility] [place] [address], [facility] Hematocrit (Bld) [Volume fraction] 39.8 % Normal 39.0-50.0 [facility] Comment on above: Order Comment: << On admission If not done in ED>> No: Do not add to previous draw Performed By: #### 0 0121, 06264, 40563, 51346, 97959 #### [facility] [address] [facility] [address] Hemoglobin (Bld) [Mass/Vol] 12.8 g/dL Low 13.0-17.0 [facility] Comment on above: Order Comment: << On admission If not done in ED>> No: Do not add to previous draw Performed By: #### 0 0121, 21895, 72189, 64668, 36332 #### [facility] [address] MCH (RBC) [Entitic mass] 28.8 pg Normal 27.0-33.0 [facility] Comment on above: Order Comment: << On admission If not done in ED>> No: Do not add to previous draw Performed By: #### 0 0121, 44956, 31913, 94022, 83764 #### [facility] [address] MCHC (RBC) [Mass/Vol] 32.2 g/dL Normal 32.0-35.0 [facility] Comment on above: Order Comment: << On admission If not done in ED>> No: Do not add to previous draw Performed By: #### 0 0121, 77836, 83249, 53244, 84026 #### [facility] [address] [place] [address], [facility] MCV (RBC) [Entitic vol] 89.4 fL Normal 82.0-98.0 [facility] Comment on above: Order Comment: << On admission If not done in ED>> No: Do not add to previous draw Performed By: #### 0 0121, 63178, 25967, 28995, 32626 #### [facility] [address] [facility] [place] [address], [facility] Nucleated RBC/100 WBC (Bld) [Ratio] 0 % Normal 0-0 [facility] Comment on above: Order Comment: << On admission If not done in ED>> No: Do not add to previous draw Performed By: #### 0 0121, 97072, 99894, 27017, 51408 #### [facility] [address] [place] [address], [facility] PLAT CNT 144 10*3/uL Low 150-400 [facility] Comment on above: Order Comment: << On admission If not done in ED>> No: Do not add to previous draw Performed By: #### 0 0121, 12312, 71953, 45433, 10065 #### [facility] [address] [place] [address], [facility] RBC (Bld) [#/Vol] 4.45 10*6/uL Normal 4.20-5.70 [facility] Comment on above: Order Comment: << On admission If not done in ED>> No: Do not add to previous draw Performed By: #### 0 0121, 35454, 09936, 42133, 46396 #### [facility] [address] [facility] [place] [address], [facility] WBC (Bld) [#/Vol] 18.51 10*3/uL High 4.00-10.60 [facility] Comment on above: Order Comment: << On admission If not done in ED>> No: Do not add to previous draw Performed By: #### 0 0121, 18004, 35836, 18172, 10883 #### [facility] [address] [place] [address], [facility] Erythrocyte distribution width (RBC) [Ratio] 13.1 % Normal 11.5-15.0 [facility] Comment on above: Order Comment: << On admission If not done in ED>> No: Do not add to previous draw Performed By: #### 0 0121, 59069, 14925, 27905, 00135 #### [facility] [address] [place] [address], [facility] Hematocrit (Bld) [Volume fraction] 43.9 % Normal 39.0-50.0 [facility] Comment on above: Order Comment: << On admission If not done in ED>> No: Do not add to previous draw Performed By: #### 0 0121, 53018, 16933, 81007, 54724 #### [facility] [address] [place] [address], [facility] Hemoglobin (Bld) [Mass/Vol] 13.9 g/dL Normal 13.0-17.0 [facility] Comment on above: Order Comment: << On admission If not done in ED>> No: Do not add to previous draw Performed By: #### 0 0121, 99239, 64457, 65071, 35721 #### [facility] [address] [place] [address], [facility] MCH (RBC) [Entitic mass] 28.7 pg Normal 27.0-33.0 [facility] Comment on above: Order Comment: << On admission If not done in ED>> No: Do not add to previous draw Performed By: #### 0 0121, 06103, 04895, 50016, 54714 #### [facility] [address] [place] [address], [facility] MCHC (RBC) [Mass/Vol] 31.7 g/dL Low 32.0-35.0 [facility] Comment on above: Order Comment: << On admission If not done in ED>> No: Do not add to previous draw Performed By: #### 0 0121, 29412, 67714, 01102, 12279 #### [facility] [address] [place] [address], [facility] MCV (RBC) [Entitic vol] 90.5 fL Normal 82.0-98.0 [facility] Comment on above: Order Comment: << On admission If not done in ED>> No: Do not add to previous draw Performed By: #### 0 0121, 65524, 86432, 29499, 17686 #### [facility] [address] [place] [address], [facility] PLAT CNT 185 10*3/uL Normal 150-400 [facility] Comment on above: Order Comment: << On admission If not done in ED>> No: Do not add to previous draw Performed By: #### 0 0121, 59026, 62724, 71574, 68931 #### [facility] [address] [place] [address], [facility] RBC (Bld) [#/Vol] 4.85 10*6/uL Normal 4.20-5.70 [facility] Comment on above: Order Comment: << On admission If not done in ED>> No: Do not add to previous draw Performed By: #### 0 0121, 85763, 80238, 20249, 12218 #### [facility] [address] [place] [address], [facility] WBC (Bld) [#/Vol] 19.37 10*3/uL High 4.00-10.60 [facility] Comment on above: Order Comment: << On admission If not done in ED>> No: Do not add to previous draw Performed By: #### 0 0121, 95399, 74038, 81426, 20170 #### [facility] [address] [place] [address], [facility] Hematocrit (Bld) [Volume fraction] 42.3 % Normal 39.0-50.0 [facility] Comment on above: Order Comment: << On admission If not done in ED>> No: Do not add to previous draw Performed By: #### 0 0121, 95932, 00263, 29059, 89937 #### [facility] [address] [place] [address], [facility] Hemoglobin (Bld) [Mass/Vol] 14.0 g/dL Normal 13.0-17.0 [facility] Comment on above: Order Comment: << On admission If not done in ED>> No: Do not add to previous draw Performed By: #### 0 0121, 88304, 99736, 41315, 96973 #### [facility] [address] [place] [address], [facility] MCH (RBC) [Entitic mass] 29.2 pg Normal 27.0-33.0 [facility] Comment on above: Order Comment: << On admission If not done in ED>> No: Do not add to previous draw Performed By: #### 0 0121, 28033, 26879, 09038, 42989 #### [facility] [address] [facility]. [address] MCHC (RBC) [Mass/Vol] 33.1 g/dL Normal 32.0-35.0 [facility] Comment on above: Order Comment: << On admission If not done in ED>> No: Do not add to previous draw Performed By: #### 0 0121, 26619, 71253, 70025, 30609 #### [facility] [address] [facility] MCV (RBC) [Entitic vol] 88.3 fL Normal 82.0-98.0 [facility] Comment on above: Order Comment: << On admission If not done in ED>> No: Do not add to previous draw Performed By: #### 0 0121, 05126, 33496, 25770, 29466 #### [facility] [address] [place] [address], [facility] PLAT CNT 169 10*3/uL Normal 150-400 [facility] Comment on above: Order Comment: << On admission If not done in ED>> No: Do not add to previous draw Performed By: #### 0 0121, 57454, 81798, 21794, 45703 #### [facility] [address] [place] [address], [facility] RBC (Bld) [#/Vol] 4.79 10*6/uL Normal 4.20-5.70 [facility] Comment on above: Order Comment: << On admission If not done in ED>> No: Do not add to previous draw Performed By: #### 0 0121, 63919, 61079, 86276, 06583 #### [facility] [address] [place] [address], [facility] WBC (Bld) [#/Vol] 19.78 10*3/uL High 4.00-10.60 [facility] Comment on above: Order Comment: << On admission If not done in ED>> No: Do not add to previous draw Performed By: #### 0 0121, 51874, 34760, 76374, 36915 #### [facility] [address] [place] [address], [facility] COOXIMETRYon 03-20-2019 COHB 2 % Normal [facility] Comment on above: Performed By: #### 0 0121, 28894, 33287, 74159, 69920 #### [facility] [address] [place] [address], [facility] METHB 0 % Normal [facility] Comment on above: Performed By: #### 0 0121, 73036, 58542, 83598, 09705 #### [facility] [address] [place] [address], [facility] Oxygen saturation in Blood 68.0 % Normal 65.0-75.0 [facility] Comment on above: Performed By: #### 0 0121, 98778, 46262, 15340, 64558 #### [facility] [address] THB 13.2 g/dL Normal [facility] Comment on above: Performed By: #### 0 0121, 85013, 22567, 91782, 17706 #### [facility] [address] CPK-MB PROFILEon 03-20-2019 CK [Catalytic activity/Vol] 2914 U/L Critically high 30-223 [facility] Comment on above: Order Comment: << On admission If not done in ED>> No: Do not add to previous draw Performed By: #### 0 0121, 62952, 63894, 17545, 44222 #### [facility] [address] CK.MB [Mass/Vol] 3.8 ng/mL Critically high 0.0-1.9 [facility] Comment on above: Order Comment: << On admission If not done in ED>> No: Do not add to previous draw Result Comment: M-CR ITICAL RESULT(S) REVIEWED, CALLED TO AND READ BACK BY DAKOTAH MONTANO RN AT 0550 Performed By: #### 0 0121, 42744, 57880, 85635, 90021 #### [facility] [address] CK.MB [Mass/Vol] 111.1 ng/mL High 0.0-5.0 [facility] Comment on above: Order Comment: << On admission If not done in ED>> No: Do not add to previous draw Result Comment: IF T OTAL CK <200 U/L AND: 1. CKMB IS 5-10 NG/ML----BORDERLINE 2. CKMB IS >10 NG/ML----INDICATIVE OF [place] OR IF TOTAL CK >200 U/L AND CKMB INDEX >1.9----INDICATIVE OF [place] Performed By: #### 0 0121, 69898, 02444, 92447, 70934 #### [facility] [address] [place] [address], [facility] LACTATE BLOODon 03-20-2019 Lactate [Moles/Vol] 1.9 mmol/L Normal 0.5-2.2 The [facility] Comment on above: Order Comment: << On admission If not done in ED>> No: Do not add to previous draw Performed By: #### 0 0121, 73117, 18383, 44446, 88205 #### [facility] [address] [place] [address], [facility] Lactate [Moles/Vol] 3.1 mmol/L Critically high 0.5-2.2 [facility] Comment on above: Order Comment: << On admission If not done in ED>> No: Do not add to previous draw Result Comment: M-NC EVIOUS CRITICAL RESULT Performed By: #### 0 0121, 00124, 93621, 73510, 85772 #### [facility] [address] [place] [address], [facility] Lactate [Moles/Vol] 2.7 mmol/L Critically high 0.5-2.2 [facility] Comment on above: Order Comment: << On admission If not done in ED>> No: Do not add to previous draw Result Comment: M-NC EVIOUS CRITICAL RESULT Performed By: #### 0 0121, 34286, 11744, 19154, 56748 #### [facility] [address] [place] [address], [facility] MAGNESIUM BLOODon 03-20-2019 Magnesium [Mass/Vol] 2.1 mg/dL Normal 1.9-2.7 [facility] Comment on above: Order Comment: << On admission If not done in ED>> No: Do not add to previous draw Performed By: #### 0 0121, 68385, 76685, 57951, 51347 #### [facility] [address] [place] [address], [facility] Magnesium [Mass/Vol] 2.3 mg/dL Normal 1.9-2.7 [facility] Comment on above: Order Comment: << On admission If not done in ED>> No: Do not add to previous draw Performed By: #### 0 0121, 86245, 11745, 63097, 49612 #### [facility] [address] Magnesium [Mass/Vol] 2.4 mg/dL Normal 1.9-2.7 [facility] Comment on above: Order Comment: << On admission If not done in ED>> No: Do not add to previous draw Performed By: #### 0 0121, 61409, 80305, 62717, 89042 #### [facility] [address] Operative Reporton 9 Operative Report MR#: [id number] I [facility] Pt. Name: Tracie Crain Room #: [id number] Discharge Date: Birthdate: 1965 OPERATIVE REPORT DATE [...] Black MD Date Trans: 03/20/2019 02:34 A/bessie [id number]:[id number] cc: Titus Villegas M.D. [address], [facility] [[email or web address] [place] [address] [place] [facility] Operative Report MR#: [id number] I [facility] Pt. Name: Tracie Crain Room #: [id number] Discharge Date: Birthdate: 1965 OPERATIVE REPORT DATE [...] and posteromedial papillary muscle. These were 4.0 [place] stitches and they were brought out in [...] Black MD Date Trans: 03/20/2019 02:21 A/bessie [id number] cc: Titus Villegas M.D. [address] [place] [address] Normal [facility] POC GLUCOSE LABon 03-20-2019 Glucose [Mass/Vol] 117 mg/dL High 70-100 [facility] Comment on above: Performed By: #### 0 0121, 36857, 48798, 62193, 22280 #### [facility] [address] [place] [address], [place] Glucose [Mass/Vol] 114 mg/dL High 70-100 [facility] Comment on above: Performed By: #### 0 0121, 90359, 69608, 81762, 06449 #### [facility] [address] [place] [address], [place] Glucose [Mass/Vol] 117 mg/dL High 70-100 [facility] Comment on above: Performed By: #### 0 0121, 79540, 55881, 48746, 51610 #### [facility] [address] [place] [address], [place] Glucose [Mass/Vol] 99 mg/dL Normal 70-100 [facility] Comment on above: Performed By: #### 0 0121, 75627, 44667, 40707, 73404 #### [facility] [address] [place] [address], [place] Glucose [Mass/Vol] 125 mg/dL High 70-100 [facility] Comment on above: Performed By: #### 0 0121, 30938, 82756, 82318, 38778 #### [facility] [address] [place] [address], [place] Glucose [Mass/Vol] 102 mg/dL High 70-100 [facility] Comment on above: Performed By: #### 0 0121, 39642, 79711, 90319, 34032 #### [facility] [address] [place] [address], [place] Glucose [Mass/Vol] 97 mg/dL Normal 70-100 [facility] Comment on above: Performed By: #### 0 0121, 02980, 01138, 65047, 56207 #### [facility] [address] [place] [address], [place] Glucose [Mass/Vol] 102 mg/dL High 70-100 [facility] Comment on above: Performed By: #### 0 0121, 39676, 24776, 46582, 20574 #### [facility] [address] [place] [address], [place] Glucose [Mass/Vol] 124 mg/dL High 70-100 [facility] Comment on above: Performed By: #### 0 0121, 79587, 37859, 88530, 50478 #### [facility] [address] [place] [address], [place] Glucose [Mass/Vol] 112 mg/dL High 70-100 [facility] Comment on above: Order Comment: << On admission If not done in ED>> No: Do not add to previous draw Performed By: #### 0 0121, 47477, 65645, 91331, 06169 #### [facility] [address] [place] [address], [place] Glucose [Mass/Vol] 129 mg/dL High 70-100 [facility] Comment on above: Performed By: #### 0 0121, 57000, 35900, 33937, 60816 #### [facility] [address] [place] [address], [place] Glucose [Mass/Vol] 122 mg/dL High 70-100 [facility] Comment on above: Performed By: #### 0 0121, 61075, 83447, 65711, 03990 #### [facility] [address] [place] [address], [place] Glucose [Mass/Vol] 133 mg/dL High 70-100 [facility] Comment on above: Performed By: #### 0 0121, 20416, 27217, 28709, 11902 #### [facility] [address] [place] [address], [place] Glucose [Mass/Vol] 130 mg/dL High 70-100 [facility] Comment on above: Performed By: #### 5 7307 #### [facility] [address] [place] [address], [place] Glucose [Mass/Vol] 142 mg/dL High 70-100 [facility] Comment on above: Performed By: #### 5 7307 #### [facility] [address] [facility] [place] [address], [facility] PORTABLE CHEST 1 VIEWon 03-01 PORTABLE CHEST 1 VIEW [facility] Department of Radiology [address] [place] [phone] ======== Patient Name: TRACIE CRAIN : 1965 Sex: M Age: Race: NA Pt. Location: [id number] Patient Status: I Ordered Date: 03/20/2019 8:05:00 [...] tube is 7 cm from the loki. [place] catheter with tip projecting over the pulmonary [...] findings. Electronically signed by:Yenni Osuna. Transcribed by: [email or web address], User Resident: ANAI ALVARADO Electronically Signed by: YENNI OSUNA @ 03/22/2019 11:07 AM I personally read this/these film(s) with this resident Normal [facility] Comment on above: Order Comment: << On admission If not done in ED>> No: Do not add to previous draw PORTABLE CHEST 1 VIEW [facility] Department of Radiology [address] [place] [phone] ======== Patient Name: TRACIE CRAIN : 1965 Sex: M Age: Race: NA Pt. Location: [id number] Patient Status: I Ordered Date: 03/20/2019 5:00:00 [...] tube is 7 cm from the loki. [place] catheter with tip projecting over the pulmonary [...] findings. Electronically signed by:Divya Collins. Transcribed by: [email or web address], User Resident: ANAI ALVARADO Electronically Signed by: IDVYA COLLINS @ 03/20/2019 11:01 AM I personally read this/these film(s) with this resident Normal [facility] Comment on above: Order Comment: << On admission If not done in ED>> No: Do not add to previous draw PROTHROMBIN TIMEon 9 INR Coag (PPP) [Relative time] 1.37 {INR} High 0.91-1.16 [facility] Comment on above: Order Comment: << [...] CHEST 1995;108:[id number]. Performed By: #### 0 0121, 77278, 79360, 11836, 72889 #### [facility] [address] PT Coag (PPP) [Time] 16.9 s High 12.3-14.8 [facility] Comment on above: Order Comment: << On admission If not done in ED>> No: Do not add to previous draw Result Comment: ALL RESULTS MUST BE INTERPRETED WITH RESPECT TO BLOOD DRAWING ARTIFACT OR DILUTION ERROR OF ANTICOAGULANT AT THE TIME OF SAMPLING. Performed By: #### 0 0121, 49704, 22006, 31967, 33493 #### [facility] [address] [place] [address], [place] ACTIVATED CLOTTING TIMEon ACTIVATED CLOTTING TIME 115 sec Normal 82-152 [facility] Comment on above: Performed By: #### 8 5123, 14034 #### [facility] [address] [place] [address], [place] ACTIVATED CLOTTING TIME 508 sec High 82-152 [facility] Comment on above: Performed By: #### 8 5123, 27283 #### [facility] [address] [place] [address], [place] ACTIVATED CLOTTING TIME 508 sec High 82-152 [facility] Comment on above: Performed By: #### 8 5123, 33921 #### [facility] [address] [place] [address], [place] ACTIVATED CLOTTING TIME 610 sec High 82-152 [facility] Comment on above: Performed By: #### 8 5123, 56738 #### [facility] [address] [place] [address], [place] ACTIVATED CLOTTING TIME 621 sec High 82-152 [facility] Comment on above: Performed By: #### 8 5123, 66014 #### [facility] [address] [place] [address], [place] ACTIVATED CLOTTING TIME 660 sec High 82-152 [facility] Comment on above: Performed By: #### 8 5123, 04647 #### [facility] [address] [place] [address], [place] ACTIVATED CLOTTING TIME 508 sec High 82-152 [facility] Comment on above: Performed By: #### 8 5123, 31100 #### [facility] [address] [place] [address], [place] ACTIVATED CLOTTING TIME 514 sec High 82-152 [facility] Comment on above: Performed By: #### 0 0121, 03384, 99184, 80847, 28629 #### [facility] [address] [place] [address], [facility] ACTIVATED CLOTTING TIME 514 sec High 82-152 [facility] Comment on above: Performed By: #### 0 0121, 36807, 85678, 05556, 79106 #### [facility] [address] [place] [address], [facility] ACTIVATED CLOTTING TIME 502 sec High 82-152 [facility] Comment on above: Performed By: #### 0 0121, 08079, 30233, 91437, 82851 #### [facility] [address] [place] [address], [facility] ACTIVATED CLOTTING TIME 473 sec High 82-152 [facility] Comment on above: Performed By: #### 0 0121, 08761, 74565, 80163, 35004 #### [facility] [address] [place] [address], [facility] ACTIVATED CLOTTING TIME 508 sec High 82-152 [facility] Comment on above: Performed By: #### 0 0121, 23764, 45025, 82822, 79234 #### [facility] [address] [place] [address], [facility] ACTIVATED CLOTTING TIME 115 sec Normal 82-152 [facility] Comment on above: Performed By: #### 0 0121, 50955, 75974, 55797, 89778 #### [facility] [address] [place] [id number] APTTon 03-19-2019 aPTT Coag (Bld) [Time] 28.6 s Normal 25.0-35.0 [facility] Comment on above: Result Comment: ALL [...] THIS PURPOSE. Performed By: #### 8 5123, 54753 #### [facility] [address] aPTT Coag (Bld) [Time] 33.6 s Normal 25.0-35.0 [facility] Comment on above: Order Comment: [...] THIS PURPOSE. Performed By: #### 0 0121, 41956, 36997, 70733, 14485 #### [facility] [address] ARTERIAL BLOOD GAS W/COOXon 03-19-2019 BASE EXCESS -8 mmol/L Low -2-3 [facility] Comment on above: Performed By: #### 8 4711, 84970 ####[facility] [facility].[address] COHB 2.6 % High 0.0-1.5 [facility] Comment on above: Performed By: #### 8 0371, 78425 ####[facility] [facility].[address] DELIVERY SYSTEMS VENT Normal [facility] Comment on above: Performed By: #### 8 9681, 71439 ####[facility] [facility] [place] [address], [facility] FIO2 100 % Normal [facility] Comment on above: Performed By: #### 8 0591, 14292 ####[facility] [facility] [place] [address], [facility] HCO3 (Bld) [Moles/Vol] 19 mmol/L Low 21-28 [facility] Comment on above: Performed By: #### 8 4511, 02852 ####[facility] [place] [address], [facility] METHB 0.8 % Normal 0.0-1.5 [facility] Comment on above: Performed By: #### 8 4511, 23434 ####[facility] [place] [address], [facility] MIN VOLUME 11.6 Normal [facility] Comment on above: Performed By: #### 8 451, 19153 ####[facility] [place] [address], [facility] MODALITY AC Normal [facility] Comment on above: Performed By: #### 8 451, 56560 ####[facility] [place] [address], [facility] Oxygen (Bld) [Partial pressure] 61 mm[Hg] Low 83-108 [facility] Comment on above: Performed By: #### 8 4511, 05506 ####[facility] [place] [address], [facility] Oxygen saturation in Blood 88.9 % Low 94.0-97.0 [facility] Comment on above: Performed By: #### 8 4511, 18051 ####[facility] [place] [address], [facility] PCO2 43 mmHg Normal 35-45 [facility] Comment on above: Performed By: #### 8 4511, 83726 ####[facility] [place] [address], [place] PEEP 10.0 CMH20 Normal [facility] Comment on above: Performed By: #### 8 4511, 75684 ####[facility] [place] [address], [place] pH (Bld) 7.26 [pH] Low 7.35-7.45 [facility] Comment on above: Result Comment: KINJAL REYNOSO NOTE: Effective 12/02/18, reference ranges for Respiratory GEM analyzers running arterial blood have been updated to reflect the assistant center director's published reference ranges. Performed By: #### 8 4511, 76243 ####[facility] [place] [address], [facility] THB 14.2 g/dL Normal 12.0-16.3 [facility] Comment on above: Performed By: #### 8 4511, 05245 ####[facility] TIDAL VOLUME (VT) CC 700 cc Normal [facility] Comment on above: Performed By: #### 8 0321, 67923 ####[facility] ARTERIAL BLOOD GAS WITH ICAo n 03-19-2019 BASE EXCESS -4 mmol/L Low -2-3 [facility] Comment on above: Performed By: #### 5 7307 #### [facility] [address] [place] [address], [facility] DELIVERY SYSTEMS MV Normal [facility] Comment on above: Performed By: #### 5 7307 #### [facility] [address] [place] [address], [facility] FIO2 100 % Normal [facility] Comment on above: Performed By: #### 5 7307 #### [facility] [address] [place] [address], [facility] HCO3 (Bld) [Moles/Vol] 20 mmol/L Low 21-28 [facility] Comment on above: Performed By: #### 5 7386 #### [facility] [address] [place] [address], [facility] IONIZED CALCIUM 1.21 mmol/L Normal 1.13-1.[address] [facility] Comment on above: Performed By: #### 5 7307 #### [facility] [address] [place] [address], [facility] MIN VOLUME 13.6 Normal [facility] Comment on above: Performed By: #### 5 7307 #### [facility] [address] [place] [address], [facility] MODALITY AC Normal [facility] Comment on above: Performed By: #### 5 7307 #### [facility] [address] [place] [address], [facility] Oxygen (Bld) [Partial pressure] 74 mm[Hg] Low 83-108 [facility] Comment on above: Performed By: #### 5 7307 #### [facility] [address] [place] [address], [facility] Oxygen saturation in Blood 93.5 % Low 94.0-97.0 [facility] Comment on above: Performed By: #### 5 7307 #### [facility] [address] [place] [address], [facility] PCO2 33 mmHg Low 35-45 [facility] Comment on above: Performed By: #### 5 7307 #### [facility] [address] [place] [address], [facility] PEEP 10.0 CMH20 Normal [facility] Comment on above: Performed By: #### 5 7307 #### [facility] [address] [place] [address], [place] PF RATIO 74 mmHg Normal [facility] Comment on above: Performed By: #### 5 7307 #### [facility] [address] [place] [address], [place] pH (Bld) 7.39 [pH] Normal 7.35-7.45 [facility] Comment on above: Result Comment: PLEA SE NOTE: Effective 12/02/18, reference ranges for Respiratory GEM analyzers running arterial blood have been updated to reflect the assistant center director's published reference ranges. Performed By: #### 5 7307 #### [facility] [address] TIDAL VOLUME (VT) CC 700 cc Normal [facility] Comment on above: Performed By: #### 5 7307 #### [facility] [address] [place] [address], [facility] BASE EXCESS -7 mmol/L Low -2-3 [facility] Comment on above: Order Comment: R/O P ulmonary Edema Performed By: #### 8 8551, 33842 ####[facility] [facility] [facility] DELIVERY SYSTEMS MV Normal [facility] Comment on above: Order Comment: R/O P ulmonary Edema Performed By: #### 8 6831, 62613 ####[facility] [place] [address], [facility] FIO2 100 % Normal [facility] Comment on above: Order Comment: R/O P ulmonary Edema Performed By: #### 8 1411, 60716 ####[facility] [facility] [place] [address], [facility] HCO3 (Bld) [Moles/Vol] 21 mmol/L Normal 21-28 [facility] Comment on above: Order Comment: R/O P ulmonary Edema Performed By: #### 8 1321, 42481 ####[facility] [place] [address], [facility] IONIZED CALCIUM 1.36 mmol/L High 1.13-1.[address] [facility] Comment on above: Order Comment: R/O P ulmonary Edema Performed By: #### 8 8041, 88110 ####[facility] [place] [address], [facility] MIN VOLUME 13.0 Normal [facility] Comment on above: Order Comment: R/O P ulmonary Edema Performed By: #### 8 4511, 10219 ####[facility] [place] [address], [facility] MODALITY SIMV Normal [facility] Comment on above: Order Comment: R/O P ulmonary Edema Performed By: #### 8 4511, 94002 ####[facility] [place] [address], [facility] Oxygen (Bld) [Partial pressure] 63 mm[Hg] Low 83-108 [facility] Comment on above: Order Comment: R/O P ulmonary Edema Performed By: #### 8 4511, 64014 ####[facility] [place] [address], [facility] Oxygen saturation in Blood 89.3 % Low 94.0-97.0 [facility] Comment on above: Order Comment: R/O P ulmonary Edema Performed By: #### 8 4511, 36242 ####[facility] [place] [address], [facility] PCO2 46 mmHg High 35-45 [facility] Comment on above: Order Comment: R/O P ulmonary Edema Performed By: #### 8 4511, 21841 ####[facility] [place] [address], [facility] PEEP 8.0 CMH20 Normal [facility] Comment on above: Order Comment: R/O P ulmonary Edema Performed By: #### 8 4511, 05331 ####[facility] [place] [address], [facility] PF RATIO 63 mmHg Normal [facility] Comment on above: Order Comment: R/O P ulmonary Edema Performed By: #### 8 0601, 68046 ####[facility] pH (Bld) 7.26 [pH] Low 7.35-7.45 [facility] Comment on above: Order Comment: R/O P ulmonary Edema Result Comment: KINJAL REYNOSO NOTE: Effective 12/02/18, reference ranges for Respiratory GEM analyzers running arterial blood have been updated to reflect the assistant center director's published reference ranges. Performed By: #### 8 4401, 97351 ####[facility] [place] [address], [facility] PRESSURE SUPPORT [address] [facility] Comment on above: Order Comment: R/O P ulmonary Edema Performed By: #### 8 5041, 65001 ####[facility] TIDAL VOLUME (VT) CC 600 cc Normal [facility] Comment on above: Order Comment: R/O P ulmonary Edema Performed By: #### 8 5801, 52250 ####[facility] BASIC METABOLIC PANELon 06-2 0-2019 Calcium [Mass/Vol] 8.6 mg/dL Normal 8.6-10.3 [facility] Comment on above: Order Comment: No: D o not add to previous draw Performed By: #### 5 7307 #### [facility] [address] [place] [address], [facility] Chloride [Moles/Vol] 113 mmol/L High 98-107 [facility] Comment on above: Order Comment: No: D o not add to previous draw Performed By: #### 5 7399 #### [facility] [address] [place] [address], [facility] CO2 [Moles/Vol] 21 mmol/L Normal 21-31 [facility] Comment on above: Order Comment: No: D o not add to previous draw Performed By: #### 5 7348 #### [facility] [address] [place] [address], [place] Creatinine [Mass/Vol] 1.14 mg/dL Normal 0.70-1.30 [facility] Comment on above: Order Comment: No: D o not add to previous draw Performed By: #### 5 7307 #### [facility] [address] [place] [address], [place] GFR/1.73 sq M predicted among blacks MDRD (S/P/Bld) [Vol rate/Area] mL/min/{1.73_m2} Normal >60 [facility] Comment on above: Order Comment: No: D o not add to previous draw Performed By: #### 5 7307 #### [facility] [address] [place] [address], [place] GFR/1.73 sq M predicted among non-blacks MDRD (S/P/Bld) [Vol rate/Area] mL/min/{1.73_m2} Normal >60 [facility] Comment on above: Order Comment: No: D o not add to previous draw Performed By: #### 5 7307 #### [facility] [address] [place] [address], [place] Glucose [Mass/Vol] 164 mg/dL High 70-100 [facility] Comment on above: Order Comment: No: D o not add to previous draw Performed By: #### 5 7307 #### [facility] [address] [place] [address], [place] Potassium [Moles/Vol] 4.3 mmol/L Normal 3.5-5.1 [facility] Comment on above: Order Comment: No: D o not add to previous draw Performed By: #### 5 7307 #### [facility] [address] [place] [address], [place] Sodium [Moles/Vol] 142 mmol/L Normal 136-145 [facility] Comment [facility] above: Order Comment: No: D o not add to previous draw Performed By: #### 5 7307 #### [facility] [address] [place] [address], [place] Urea nitrogen [Mass/Vol] 19 mg/dL Normal 7-25 [facility] Comment on above: Order Comment: No: D o not add to previous draw Performed By: #### 5 7307 #### [facility] [address] [place] [address], [place] Calcium [Mass/Vol] 9.8 mg/dL Normal 8.6-10.3 [facility] Comment on above: Order Comment: If no t done in ED No: Do not add to previous draw Performed By: #### 8 5123, 02037 #### [facility] [address] [place] [address], [place] Chloride [Moles/Vol] 112 mmol/L High 98-107 [facility] Comment on above: Order Comment: If no t done in ED No: Do not add to previous draw Performed By: #### 8 5123, 68116 #### [facility] [address] [place] [address], [place] CO2 [Moles/Vol] 21 mmol/L Normal 21-31 [facility] Comment on above: Order Comment: If no t done in ED No: Do not add to previous draw Performed By: #### 8 5123, 18285 #### [facility] [address] [place] [address], [place] Creatinine [Mass/Vol] 1.07 mg/dL Normal 0.70-1.30 [facility] Comment on above: Order Comment: If no t done in ED No: Do not add to previous draw Performed By: #### 8 5123, 14168 #### [facility] [address] [place] [address], [place] GFR/1.73 sq M predicted among blacks MDRD (S/P/Bld) [Vol rate/Area] mL/min/{1.73_m2} Normal >60 [facility] Comment on above: Order Comment: If no t done in ED No: Do not add to previous draw Performed By: #### 8 5123, 71962 #### [facility] [address] [place] [address], [place] GFR/1.73 sq M predicted among non-blacks MDRD (S/P/Bld) [Vol rate/Area] mL/min/{1.73_m2} Normal >60 [facility] Comment on above: Order Comment: If no t done in ED No: Do not add to previous draw Performed By: #### 8 5123, 65451 #### [facility] [address] [place] [address], [place] Glucose [Mass/Vol] 147 mg/dL High 70-100 [facility] Comment on above: Order Comment: If no t done in ED No: Do not add to previous draw Performed By: #### 8 5123, 39845 #### [facility] [address] [place] [address], [place] Potassium [Moles/Vol] 3.9 mmol/L Normal 3.5-5.1 [facility] Comment on above: Order Comment: If no t done in ED No: Do not add to previous draw Performed By: #### 8 5123, 73535 #### [facility] [address] [place] [address], [place] Sodium [Moles/Vol] 142 mmol/L Normal 136-145 [facility] Comment on above: Order Comment: If no t done in ED No: Do not add to previous draw Performed By: #### 8 5123, 27430 #### [facility] [address] [place] [address], [place] Urea nitrogen [Mass/Vol] 19 mg/dL Normal 7-25 [facility] Comment on above: Order Comment: If no t done in ED No: Do not add to previous draw Performed By: #### 8 5123, 22786 #### [facility] [address] [place] [address], [place] Calcium [Mass/Vol] 9.5 mg/dL Normal 8.6-10.3 [facility] Comment on above: Order Comment: If no t done in ED No: Do not add to previous draw Performed By: #### 0 0121, 87478, 06523, 53895, 29916 #### [facility] [address] [place] [address], [place] Chloride [Moles/Vol] 105 mmol/L Normal 98-107 [facility] Comment on above: Order Comment: If no t done in ED No: Do not add to previous draw Performed By: #### 0 0121, 15220, 39248, 02505, 79370 #### [facility] [address] [place] [address], [place] CO2 [Moles/Vol] 24 mmol/L Normal 21-31 [facility] Comment on above: Order Comment: If no t done in ED No: Do not add to previous draw Performed By: #### 0 0121, 62201, 43491, 36668, 78272 #### [facility] [address] [place] [address], [place] Creatinine [Mass/Vol] 1.11 mg/dL Normal 0.70-1.30 [facility] Comment on above: Order Comment: If no t done in ED No: Do not add to previous draw Performed By: #### 0 0121, 39969, 05199, 40871, 01962 #### [facility] [address] [place] [address], [place] GFR/1.73 sq M predicted among blacks MDRD (S/P/Bld) [Vol rate/Area] mL/min/{1.73_m2} Normal >60 [facility] Comment on above: Order Comment: If no t done in ED No: Do not add to previous draw Performed By: #### 0 0121, 67000, 90431, 07198, 01925 #### [facility] [address] [place] [address], [place] GFR/1.73 sq M predicted among non-blacks MDRD (S/P/Bld) [Vol rate/Area] mL/min/{1.73_m2} Normal >60 [facility] Comment on above: Order Comment: If no t done in ED No: Do not add to previous draw Performed By: #### 0 0121, 35883, 89889, 22153, 12471 #### [facility] [address] [place] [address], [place] Glucose [Mass/Vol] 89 mg/dL Normal 70-100 [facility] Comment on above: Order Comment: If no t done in ED No: Do not add to previous draw Performed By: #### 0 0121, 80729, 13330, 51420, 54231 #### [facility] [address] [place] [address], [place] Potassium [Moles/Vol] 4.2 mmol/L Normal 3.5-5.1 [facility] Comment on above: Order Comment: If no t done in ED No: Do not add to previous draw Performed By: #### 0 0121, 61769, 39352, 21099, 94016 #### [facility] [address] [place] [address], [place] Sodium [Moles/Vol] 135 mmol/L Low 136-145 [facility] Comment on above: Order Comment: If no t done in ED No: Do not add to previous draw Performed By: #### 0 0121, 79422, 98014, 69931, 68630 #### [facility] [address] [place] [address], [place] Urea nitrogen [Mass/Vol] 17 mg/dL Normal 7-25 [facility] Comment on above: Order Comment: If no t done in ED No: Do not add to previous draw Performed By: #### 0 0121, 26626, 40335, 46255, 03398 #### [facility] [address] CBC COMPLETE BLOOD COUNTon 0 03-19-2019 Erythrocyte distribution width (RBC) [Ratio] 13.0 % Normal 11.5-15.0 [facility] Comment on above: Order Comment: No: D o not add to previous draw Performed By: #### 5 7307 #### [facility] [address] [place] [address], [facility] Hematocrit (Bld) [Volume fraction] 42.7 % Normal 39.0-50.0 [facility] Comment on above: Order Comment: No: D o not add to previous draw Performed By: #### 5 7307 #### [facility] [address] [place] [id number], [facility] Hemoglobin (Bld) [Mass/Vol] 14.3 g/dL Normal 13.0-17.0 [facility] Comment on above: Order Comment: No: D o not add to previous draw Performed By: #### 5 7307 #### [facility] [address] [place] [address], [facility] MCH (RBC) [Entitic mass] 29.4 pg Normal 27.0-33.0 [facility] Comment on above: Order Comment: No: D o not add to previous draw Performed By: #### 5 7307 #### [facility] [address] [place] [address], [facility] MCHC (RBC) [Mass/Vol] 33.5 g/dL Normal 32.0-35.0 [facility] Comment on above: Order Comment: No: D o not add to previous draw Performed By: #### 5 7307 #### [facility] [address] [place] [id number], [facility] MCV (RBC) [Entitic vol] 87.9 fL Normal 82.0-98.0 [facility] Comment on above: Order Comment: No: D o not add to previous draw Performed By: #### 5 7307 #### [facility] [address] [place] [address], [facility] Nucleated RBC/100 WBC (Bld) [Ratio] 0 % Normal 0-0 [facility] Comment on above: Order Comment: No: D o not add to previous draw Performed By: #### 5 7307 #### [facility] [address] [place] [id number], [facility] PLAT CNT 179 10*3/uL Normal 150-400 [facility] Comment on above: Order Comment: No: D o not add to previous draw Performed By: #### 5 7307 #### [facility] [address] [place] [id number], [facility] RBC (Bld) [#/Vol] 4.86 10*6/uL Normal 4.20-5.70 [facility] Comment on above: Order Comment: No: D o not add to previous draw Performed By: #### 5 7307 #### [facility] [address] [place] [address], [facility] WBC (Bld) [#/Vol] 26.36 10*3/uL High 4.00-10.60 [facility] Comment on above: Order Comment: No: D o not add to previous draw Performed By: #### 5 7307 #### [facility] [address] [place] [address], [facility] Erythrocyte distribution width (RBC) [Ratio] 13.0 % Normal 11.5-15.0 [facility] Comment on above: Order Comment: R/O P ulmonary Edema Performed By: #### 5 0608 ####[facility] [place] [address], [facility] Hematocrit (Bld) [Volume fraction] 47.1 % Normal 39.0-50.0 [facility] Comment on above: Order Comment: R/O P ulmonary Edema Performed By: #### 5 0608 ####[facility] Hemoglobin (Bld) [Mass/Vol] 15.0 g/dL Normal 13.0-17.0 [facility] Comment on above: Order Comment: R/O P ulmonary Edema Performed By: #### 5 0608 ####[facility] MCH (RBC) [Entitic mass] 29.4 pg Normal 27.0-33.0 [facility] Comment on above: Order Comment: R/O P ulmonary Edema Performed By: #### 5 0608 ####[facility] MCHC (RBC) [Mass/Vol] 31.8 g/dL Low 32.0-35.0 [facility] Comment on above: Order Comment: R/O P ulmonary Edema Performed By: #### 5 0608 ####[place] [address] [address] MCV (RBC) [Entitic vol] 92.4 fL Normal 82.0-98.0 [facility] Comment on above: Order Comment: R/O P ulmonary Edema Performed By: #### 5 0608 ####[facility] Nucleated RBC/100 WBC (Bld) [Ratio] 0 % Normal 0-0 [facility] Comment on above: Order Comment: R/O P ulmonary Edema Performed By: #### 5 0608 ####[facility] PLAT CNT 188 10*3/uL Normal 150-400 [facility] Comment on above: Order Comment: R/O P ulmonary Edema Performed By: #### 5 0608 ####[facility] [place] [address], [facility] RBC (Bld) [#/Vol] 5.10 10*6/uL Normal 4.20-5.70 [facility] Comment on above: Order Comment: R/O P ulmonary Edema Performed By: #### 5 0608 ####[facility] [place] [address], [place] WBC (Bld) [#/Vol] 31.20 10*3/uL High 4.00-10.60 [facility] Comment on above: Order Comment: R/O P ulmonary Edema Performed By: #### 5 0608 ####[facility] [place] [address], [facility] Erythrocyte distribution width (RBC) [Ratio] 13.0 % Normal 11.5-15.0 [facility] Comment on above: Order Comment: If no t done in ED No: Do not add to previous draw Performed By: #### 8 1123, 61156 #### [facility] [address] [place] [address], [place] Hematocrit (Bld) [Volume fraction] 44.2 % Normal 39.0-50.0 [facility] Comment on above: Order Comment: If no t done in ED No: Do not add to previous draw Performed By: #### 8 5163, 02683 #### [facility] [address] [place] [address], [place] Hemoglobin (Bld) [Mass/Vol] 14.4 g/dL Normal 13.0-17.0 [facility] Comment on above: Order Comment: If no t done in ED No: Do not add to previous draw Performed By: #### 8 8493, 71061 #### [facility] [address] [place] [address], [place] MCH (RBC) [Entitic mass] 28.8 pg Normal 27.0-33.0 [facility] Comment on above: Order Comment: If no t done in ED No: Do not add to previous draw Performed By: #### 8 5123, 21436 #### [facility] [address] [place] [address], [facility] MCHC (RBC) [Mass/Vol] 32.6 g/dL Normal 32.0-35.0 [facility] Comment on above: Order Comment: If no t done in ED No: Do not add to previous draw Performed By: #### 8 5123, 91196 #### [facility] [address] [place] [address], [facility] MCV (RBC) [Entitic vol] 88.4 fL Normal 82.0-98.0 [facility] Comment on above: Order Comment: If no t done in ED No: Do not add to previous draw Performed By: #### 8 5123, 45442 #### [facility] [address] [place] [address], [facility] Nucleated RBC/100 WBC (Bld) [Ratio] 0 % Normal 0-0 [facility] Comment on above: Order Comment: If no t done in ED No: Do not add to previous draw Performed By: #### 8 5123, 64881 #### [facility] [address] [place] [address], [facility] PLAT CNT 166 10*3/uL Normal 150-400 [facility] Comment on above: Order Comment: If no t done in ED No: Do not add to previous draw Performed By: #### 8 5123, 53533 #### [facility] [address] [place] [address], [facility] RBC (Bld) [#/Vol] 5.00 10*6/uL Normal 4.20-5.70 [facility] Comment on above: Order Comment: If no t done in ED No: Do not add to previous draw Performed By: #### 8 5123, 01267 #### [facility] [address] [place] [address], [facility] WBC (Bld) [#/Vol] 33.13 10*3/uL High 4.00-10.60 [facility] Comment on above: Order Comment: If no t done in ED No: Do not add to previous draw Performed By: #### 8 5123, 17574 #### [facility] [address] [place] [address], [facility] Erythrocyte distribution width (RBC) [Ratio] 13.0 % Normal 11.5-15.0 [facility] Comment on above: Order Comment: If no t done in ED No: Do not add to previous draw Performed By: #### 0 0121, 28876, 25441, 87970, 21993 #### [facility] [address] [place] [address], [facility] Hematocrit (Bld) [Volume fraction] 55.7 % High 39.0-50.0 [facility] Comment on above: Order Comment: If no t done in ED No: Do not add to previous draw Performed By: #### 0 0121, 66338, 03786, 30867, 77075 #### [facility] [address] [place] [address], [facility] Hemoglobin (Bld) [Mass/Vol] 18.2 g/dL High 13.0-17.0 [facility] Comment on above: Order Comment: If no t done in ED No: Do not add to previous draw Performed By: #### 0 0121, 65591, 76412, 60549, 01684 #### [facility] [address] [place] [address], [facility] MCH (RBC) [Entitic mass] 28.6 pg Normal 27.0-33.0 [facility] Comment on above: Order Comment: If no t done in ED No: Do not add to previous draw Performed By: #### 0 0121, 85619, 80253, 50917, 32750 #### [facility] [address] MCHC (RBC) [Mass/Vol] 32.7 g/dL Normal 32.0-35.0 [facility] Comment on above: Order Comment: If no t done in ED No: Do not add to previous draw Performed By: #### 0 0121, 41197, 04928, 23724, 83587 #### [facility] [address] MCV (RBC) [Entitic vol] 87.4 fL Normal 82.0-98.0 [facility] Comment on above: Order Comment: If no t done in ED No: Do not add to previous draw Performed By: #### 0 0121, 98513, 51454, 84042, 39514 #### [facility] [address] [facility] [facility] [facility] Nucleated RBC/100 WBC (Bld) [Ratio] 0 % Normal 0-0 [facility] Comment on above: Order Comment: If no t done in ED No: Do not add to previous draw Performed By: #### 0 0121, 13628, 45260, 09980, 99805 #### [facility] [address] [facility] [facility] PLAT CNT 288 10*3/uL Normal 150-400 [facility] Comment on above: Order Comment: If no t done in ED No: Do not add to previous draw Performed By: #### 0 0121, 20381, 05830, 63599, 36701 #### [facility] [address] [place] [address], [facility] RBC (Bld) [#/Vol] 6.37 10*6/uL High 4.20-5.70 [facility] Comment on above: Order Comment: If no t done in ED No: Do not add to previous draw Performed By: #### 0 0121, 18512, 77506, 32901, 51889 #### [facility] [address] [place] [address], [facility] WBC (Bld) [#/Vol] 11.26 10*3/uL High 4.00-10.60 [facility] Comment on above: Order Comment: If no t done in ED No: Do not add to previous draw Performed By: #### 0 0121, 18564, 37275, 39418, 77509 #### [facility] [address] [place] [address], [facility] COMP METABOLIC PANELon 03-19 Albumin [Mass/Vol] 3.8 g/dL Normal 3.5-5.7 [facility] Comment on above: Order Comment: R/O P ulmonary Edema Performed By: #### 0 0121, 06341, 60890 ####[facility] [place] [address], [facility] ALKALINE PHOSPH 30 IU/L Low 34-104 [facility] Comment on above: Order Comment: R/O P ulmonary Edema Performed By: #### 0 0121, 38140, 02658 ####[facility] [facility] [place] [address], [facility] ALT [Catalytic activity/Vol] 37 U/L Normal 7-52 [facility] Comment on above: Order Comment: R/O P ulmonary Edema Performed By: #### 0 0121, 95884, 76911 ####[facility] [place] [address], [facility] AST [Catalytic activity/Vol] 154 U/L High 13-39 [facility] Comment on above: Order Comment: R/O P ulmonary Edema Performed By: #### 0 0121, 31897, 09383 ####[facility] [place] [address], [facility] Bilirubin [Mass/Vol] 1.9 mg/dL High 0.3-1.0 [facility] Comment on above: Order Comment: R/O P ulmonary Edema Performed By: #### 0 0121, 37090, 05838 ####[facility] [place] [address], [facility] Calcium [Mass/Vol] 8.9 mg/dL Normal 8.6-10.3 [facility] Comment on above: Order Comment: R/O P ulmonary Edema Performed By: #### 0 0121, 70497, 69668 ####[facility] [facility] [place] [address], [facility] Chloride [Moles/Vol] 113 mmol/L High 98-107 [facility] Comment on above: Order Comment: R/O P ulmonary Edema Performed By: #### 0 0121, 18941, 17140 ####[facility] CO2 [Moles/Vol] 13 mmol/L Critically low 21-31 [facility] Comment on above: Order Comment: R/O P ulmonary Edema Result Comment: M-CR ITICAL RESULT(S) REVIEWED, CALLED TO AND READ BACK BY PEDRO CEDENO @194 03.19.19 Performed By: #### 0 0121, 80251, 73213 ####[facility] [facility] [place] [address], [facility] Creatinine [Mass/Vol] 1.11 mg/dL Normal 0.70-1.30 [facility] Comment on above: Order Comment: R/O P ulmonary Edema Performed By: #### 0 0121, 22414, 28320 ####[facility] [place] [address], [facility] GFR/1.73 sq M predicted among blacks MDRD (S/P/Bld) [Vol rate/Area] mL/min/{1.73_m2} Normal >60 [facility] Comment on above: Order Comment: R/O P ulmonary Edema Performed By: #### 0 0121, 14846, 80337 ####[facility] [facility] [place] [address], [facility] GFR/1.73 sq M predicted among non-blacks MDRD (S/P/Bld) [Vol rate/Area] mL/min/{1.73_m2} Normal >60 [facility] Comment on above: Order Comment: R/O P ulmonary Edema Performed By: #### 0 0121, 90751, 74014 ####[facility] [facility] [place] [address], [facility] Glucose [Mass/Vol] 132 mg/dL High 70-100 [facility] Comment on above: Order Comment: R/O P ulmonary Edema Performed By: #### 0 0121, 14852, 64855 ####[facility] [place] [address], [facility] Potassium [Moles/Vol] 4.4 mmol/L Normal 3.5-5.1 [facility] Comment on above: Order Comment: R/O P ulmonary Edema Performed By: #### 0 0121, 97078, 02344 ####[facility] [facility] [place] [address], [facility] Protein [Mass/Vol] 5.6 g/dL Low 6.0-8.3 [facility] Comment on above: Order Comment: R/O P ulmonary Edema Performed By: #### 0 0121, 23774, 34686 ####[facility] [place] [address], [place] Sodium [Moles/Vol] 140 mmol/L Normal 136-145 [facility] Comment on above: Order Comment: R/O P ulmonary Edema Performed By: #### 0 0121, 89455, 96274 ####[facility] [place] [address], [place] Urea nitrogen [Mass/Vol] 18 mg/dL Normal 7-25 [facility] Comment on above: Order Comment: R/O P ulmonary Edema Performed By: #### 0 0121, 11845, 44976 ####[facility] [place] [address], [place] COOXIMETRYon 03-19-2019 COHB 2 % Normal [facility] Comment on above: Order Comment: No: D o not add to previous draw Performed By: #### 5 7307 #### [facility] [address] [place] [address], [place] METHB 1 % Normal [facility] Comment on above: Order Comment: No: D o not add to previous draw Performed By: #### 5 7307 #### [facility] [address] [place] [address], [place] Oxygen saturation in Blood 66.9 % Normal 65.0-75.0 [facility] Comment on above: Order Comment: No: D o not add to previous draw Performed By: #### 5 7307 #### [facility] [address] [place] [address], [place] THB 13.1 g/dL Normal [facility] Comment on above: Order Comment: No: D o not add to previous draw Performed By: #### 5 7307 #### [facility] [address] [place] [address], [place] COHB 2 % Normal [facility] Comment on above: Performed By: #### 7 0207 ####[facility] [place] [address], [place] METHB 1 % Normal [facility] Comment on above: Performed By: #### 7 0207 ####[facility] [place] [address], [place] Oxygen saturation in Blood 59.2 % Low 65.0-75.0 [facility] Comment on above: Performed By: #### 7 0207 ####[facility] [facility] [place] [address], [facility] THB 14.0 g/dL Normal [facility] Comment on above: Performed By: #### 7 0207 ####[facility] [facility] [place] [address], [facility] LACTATE BLOODon 03-19-2019 Lactate [Moles/Vol] 2.6 mmol/L Critically high 0.5-2.2 [facility] Comment on above: Order Comment: No: D o not add to previous draw Result Comment: M-CR ITICAL RESULT(S) REVIEWED, CALLED TO AND READ BACK BY PEDRO MONTANO @2136 03.19.19 Performed By: #### 5 7307 #### [facility] [address] [place] [address], [facility] MAGNESIUM BLOODon 03-19-2019 Magnesium [Mass/Vol] 2.4 mg/dL Normal 1.9-2.7 [facility] Comment on above: Order Comment: No: D o not add to previous draw Performed By: #### 5 7307 #### [facility] [address] [place] [address], [facility] Magnesium [Mass/Vol] 2.7 mg/dL Normal 1.9-2.7 [facility] Comment on above: Order Comment: R/O P ulmonary Edema Performed By: #### 0 0121, 42127, 41579 ####[facility] [facility] [place] [address], [facility] Magnesium [Mass/Vol] 2.9 mg/dL High 1.9-2.7 [facility] Comment on above: Performed By: #### 8 5123, 55062 #### [facility] [address] [place] [address], [facility] PERFUSION BLOOD PANELon 06-2 0-2019 BASE EXCESS -4.0 mmol/L Low -2.0-3.0 [facility] Comment on above: Performed By: #### 8 5123, 04483 #### [facility] [address] [place] [address], [place] Glucose [Mass/Vol] 143 mg/dL High 70-105 [facility] Comment on above: Performed By: #### 8 5123, 41295 #### [facility] [address] [place] [address], [place] Hematocrit (Bld) [Volume fraction] 39 % Normal 38-51 [facility] Comment on above: Performed By: #### 8 5123, 86515 #### [facility] [address] [place] [address], [place] Hemoglobin (Bld) [Mass/Vol] 13.3 g/dL Normal 12.0-17.0 [facility] Comment on above: Performed By: #### 8 5123, 23899 #### [facility] [address] [place] [address], [place] IONIZED CALCIUM 1.58 mmol/L Critically high 1.12-1.32 [facility] Comment on above: Performed By: #### 8 5123, 55657 #### [facility] [address] [place] [address], [place] Oxygen (Bld) [Partial pressure] 59.0 mm[Hg] Low 80.0-105.0 [facility] Comment on above: Performed By: #### 8 5123, 27955 #### [facility] [address] [place] [address], [place] PCO2 35.4 mmHg Normal 35.0-45.0 [facility] Comment on above: Performed By: #### 8 5123, 60526 #### [facility] [address] [place] [address], [place] pH (Bld) 7.37 [pH] Normal 7.35-7.45 [facility] Comment on above: Performed By: #### 8 5123, 58424 #### [facility] [address] [place] [address], [facility] Potassium [Moles/Vol] 3.7 mmol/L Normal 3.5-4.9 [facility] Comment on above: Performed By: #### 8 5123, 21727 #### [facility] [address] [place] [address], [place] Sodium [Moles/Vol] 144 mmol/L Normal 138-146 [facility] Comment on above: Performed By: #### 8 5123, 96875 #### [facility] [address] [place] [address], [facility] BASE EXCESS -5.0 mmol/L Low -2.0-3.0 [facility] Comment on above: Performed By: #### 8 5123, 44186 #### [facility] [address] [place] [address], [facility] Glucose [Mass/Vol] 158 mg/dL High 70-105 [facility] Comment on above: Performed By: #### 8 5123, 56937 #### [facility] [address] [place] [address], [facility] Hematocrit (Bld) [Volume fraction] 41 % Normal 38-51 [facility] Comment on above: Performed By: #### 8 5123, 67490 #### [facility] [address] [place] [address], [facility] Hemoglobin (Bld) [Mass/Vol] 13.9 g/dL Normal 12.0-17.0 [facility] Comment on above: Performed By: #### 8 5123, 55726 #### [facility] [address] [place] [address], [place] IONIZED CALCIUM 1.34 mmol/L High 1.12-1.32 [facility] Comment on above: Performed By: #### 8 5123, 88487 #### [facility] [address] [place] [address], [place] Oxygen (Bld) [Partial pressure] 51.0 mm[Hg] Low 80.0-105.0 [facility] Comment on above: Performed By: #### 8 5123, 14343 #### [facility] [address] [place] [address], [place] PCO2 34.5 mmHg Low 35.0-45.0 [facility] Comment on above: Performed By: #### 8 5123, 98749 #### [facility] [address] [place] [address], [place] pH (Bld) 7.36 [pH] Normal 7.35-7.45 [facility] Comment on above: Performed By: #### 8 5123, 53220 #### [facility] [address] [place] [address], [place] Potassium [Moles/Vol] 4.2 mmol/L Normal 3.5-4.9 [facility] Comment on above: Performed By: #### 8 5123, 21734 #### [facility] [address] [place] [address], [place] Sodium [Moles/Vol] 142 mmol/L Normal 138-146 [facility] Comment on above: Performed By: #### 8 5123, 45615 #### [facility] [address] [place] [address], [place] BASE EXCESS -1.0 mmol/L Normal -2.0-3.0 [facility] Comment on above: Performed By: #### 8 5123, 76245 #### [facility] [address] [place] [address], [place] Glucose [Mass/Vol] 163 mg/dL High 70-105 [facility] Comment on above: Performed By: #### 8 5123, 34137 #### [facility] [address] [place] [address], [place] Hematocrit (Bld) [Volume fraction] 42 % Normal 38-51 [facility] Comment on above: Performed By: #### 8 5123, 33142 #### [facility] [address] [place] [address], [place] Hemoglobin (Bld) [Mass/Vol] 14.3 g/dL Normal 12.0-17.0 [facility] Comment on above: Performed By: #### 8 5123, 90270 #### [facility] [address] [place] [address], [facility] IONIZED CALCIUM 1.05 mmol/L Low 1.12-1.32 [facility] Comment on above: Performed By: #### 8 5123, 26948 #### [facility] [address] [place] [address], [place] Oxygen (Bld) [Partial pressure] 368.0 mm[Hg] High 80.0-105.0 [facility] Comment on above: Performed By: #### 8 5123, 11782 #### [facility] [address] [place] [address], [place] PCO2 39.7 mmHg Normal 35.0-45.0 [facility] Comment on above: Performed By: #### 8 5123, 23450 #### [facility] [address] [place] [address], [place] pH (Bld) 7.39 [pH] Normal 7.35-7.45 [facility] Comment on above: Performed By: #### 8 5123, 21808 #### [facility] [address] [place] [address], [facility] Potassium [Moles/Vol] 3.9 mmol/L Normal 3.5-4.9 [facility] Comment on above: Performed By: #### 8 5123, 25919 #### [facility] [address] [place] [address], [facility] Sodium [Moles/Vol] 145 mmol/L Normal 138-146 [facility] Comment on above: Performed By: #### 8 5123, 94471 #### [facility] [address] [place] [address], [facility] BASE EXCESS -4.0 mmol/L Low -2.0-3.0 [facility] Comment on above: Performed By: #### 8 5123, 28148 #### [facility] [address] [place] [address], [facility] Glucose [Mass/Vol] 169 mg/dL High 70-105 [facility] Comment on above: Performed By: #### 8 5123, 98794 #### [facility] [address] [place] [address], [facility] Hematocrit (Bld) [Volume fraction] 40 % Normal 38-51 [facility] Comment on above: Performed By: #### 8 5123, 68283 #### [facility] [address] [place] [address], [facility] Hemoglobin (Bld) [Mass/Vol] 13.6 g/dL Normal 12.0-17.0 [facility] Comment on above: Performed By: #### 8 5123, 07762 #### [facility] [address] [place] [id number], [facility] IONIZED CALCIUM 1.37 mmol/L High 1.12-1.32 [facility] Comment on above: Performed By: #### 8 5123, 91165 #### [facility] [address] [place] [address], [facility] Oxygen (Bld) [Partial pressure] 301.0 mm[Hg] High 80.0-105.0 [facility] Comment on above: Performed By: #### 8 5123, 65314 #### [facility] [address] [place] [address], [place] PCO2 36.1 mmHg Normal 35.0-45.0 [facility] Comment on above: Performed By: #### 8 5123, 00976 #### [facility] [address] [place] [address], [place] pH (Bld) 7.38 [pH] Normal 7.35-7.45 [facility] Comment on above: Performed By: #### 8 5123, 30697 #### [facility] [address] [place] [address], [place] Potassium [Moles/Vol] 4.9 mmol/L Normal 3.5-4.9 [facility] Comment on above: Performed By: #### 8 5123, 75842 #### [facility] [facility] [address] [place] [address], [place] Sodium [Moles/Vol] 137 mmol/L Low 138-146 [facility] Comment on above: Performed By: #### 8 5123, 67583 #### [facility] [address] [place] [address], [place] BASE EXCESS -3.0 mmol/L Low -2.0-3.0 The [facility] Comment on above: Performed By: #### 8 5123, 91867 #### [facility] [address] [place] [address], [place] Glucose [Mass/Vol] 174 mg/dL High 70-105 [facility] Comment on above: Performed By: #### 8 5123, 66324 #### [facility] [address] [place] [address], [facility] Hematocrit (Bld) [Volume fraction] 45 % Normal 38-51 The [facility] Comment on above: Performed By: #### 8 512, 01542 #### [facility] [address] [place] [address], [facility] Hemoglobin (Bld) [Mass/Vol] 15.3 g/dL Normal 12.0-17.0 The [facility] Comment on above: Performed By: #### 8 512, 50567 #### [facility] [address] [place] [address], [facility] IONIZED CALCIUM 1.06 mmol/L Low 1.12-1.[address] [facility] Comment on above: Performed By: #### 8 512, 44954 #### [facility] [address] [place] [address], [facility] Oxygen (Bld) [Partial pressure] 404.0 mm[Hg] High 80.0-105.0 The [facility] Comment on above: Performed By: #### 8 512, 09303 #### [facility] [address] [place] [address], [facility] PCO2 42.4 mmHg Normal 35.0-45.0 The [facility] Comment on above: Performed By: #### 8 512, 38107 #### [facility] [address] [place] [address], [place] pH (Bld) 7.35 [pH] Normal 7.35-7.45 [facility] Comment on above: Performed By: #### 8 512, 40938 #### [facility] [address] [place] [address], [place] Potassium [Moles/Vol] 4.7 mmol/L Normal 3.5-4.9 [facility] Comment on above: Performed By: #### 8 512, 70497 #### [facility] [address] [place] [address], [place] Sodium [Moles/Vol] 141 mmol/L Normal 138-146 [facility] Comment on above: Performed By: #### 8 5123, 20570 #### [facility] [address] [place] [address], [place] BASE EXCESS -2.0 mmol/L Normal -2.0-3.0 The [facility] Comment on above: Performed By: #### 8 5123, 98690 #### [facility] [address] [place] [address], [place] Glucose [Mass/Vol] 184 mg/dL High 70-105 [facility] Comment on above: Performed By: #### 8 5123, 91121 #### [facility] [address] [place] [address], [facility] Hematocrit (Bld) [Volume fraction] 46 % Normal 38-51 The [facility] Comment on above: Performed By: #### 8 5123, 99526 #### [facility] [address] [place] [address], [facility] Hemoglobin (Bld) [Mass/Vol] 15.6 g/dL Normal 12.0-17.0 [facility] Comment on above: Performed By: #### 8 5123, 03891 #### [facility] [address] [place] [address], [place] IONIZED CALCIUM 1.06 mmol/L Low 1.12-1.32 [facility] Comment on above: Performed By: #### 8 5123, 68897 #### [facility] [address] [place] [address], [place] Oxygen (Bld) [Partial pressure] 374.0 mm[Hg] High 80.0-105.0 The [facility] Comment on above: Performed By: #### 8 5123, 18202 #### [facility] [address] [place] [address], [place] PCO2 43.3 mmHg Normal 35.0-45.0 The [facility] Comment on above: Performed By: #### 8 5123, 29748 #### [facility] [address] [place] [address], [place] pH (Bld) 7.34 [pH] Low 7.35-7.45 [facility] Comment on above: Performed By: #### 8 5123, 35405 #### [facility] [address] [place] [address], [place] Potassium [Moles/Vol] 4.8 mmol/L Normal 3.5-4.9 The [facility] Comment on above: Performed By: #### 8 5123, 01782 #### [facility] [address] [place] [address], [place] Sodium [Moles/Vol] 139 mmol/L Normal 138-146 [facility] Comment on above: Performed By: #### 8 5123, 31400 #### [facility] [address] [place] [address], [place] BASE EXCESS -2.0 mmol/L Normal -2.0-3.0 The [facility] Comment on above: Performed By: #### 8 5123, 95411 #### [facility] [address] [place] [address], [place] Glucose [Mass/Vol] 176 mg/dL High 70-105 [facility] Comment on above: Performed By: #### 8 5123, 92626 #### [facility] [address] [place] [address], [place] Hematocrit (Bld) [Volume fraction] 44 % Normal 38-51 [facility] Comment on above: Performed By: #### 8 5123, 44017 #### [facility] [address] [place] [address], [place] Hemoglobin (Bld) [Mass/Vol] 15.0 g/dL Normal 12.0-17.0 [facility] Comment on above: Performed By: #### 8 5123, 20756 #### [facility] [address] [place] [address], [place] IONIZED CALCIUM 1.07 mmol/L Low 1.12-1.32 [facility] Comment on above: Performed By: #### 8 5123, 87007 #### [facility] [address] [place] [address], [place] Oxygen (Bld) [Partial pressure] 284.0 mm[Hg] High 80.0-105.0 [facility] Comment on above: Performed By: #### 8 5123, 64206 #### [facility] [address] [place] [address], [place] PCO2 47.5 mmHg High 35.0-45.0 [facility] Comment on above: Performed By: #### 8 5123, 33986 #### [facility] [address] [place] [address], [place] pH (Bld) 7.32 [pH] Low 7.35-7.45 [facility] Comment on above: Performed By: #### 8 5123, 10754 #### [facility] [address] [place] [address], [place] Potassium [Moles/Vol] 4.8 mmol/L Normal 3.5-4.9 [facility] Comment on above: Performed By: #### 8 5123, 74849 #### [facility] [address] [place] [address], [place] Sodium [Moles/Vol] 139 mmol/L Normal 138-146 [facility] Comment on above: Performed By: #### 8 5123, 71086 #### [facility] [address] [place] [address], [facility] BASE EXCESS -2.0 mmol/L Normal -2.0-3.0 [facility] Comment on above: Performed By: #### 0 0121, 80549, 28536, 77849, 41074 #### [facility] [address] [place] [address], [place] Glucose [Mass/Vol] 166 mg/dL High 70-105 [facility] Comment on above: Performed By: #### 0 0121, 81325, 54062, 62016, 95820 #### [facility] [address] [place] [address], [place] Hematocrit (Bld) [Volume fraction] 45 % Normal 38-51 [facility] Comment on above: Performed By: #### 0 0121, 19880, 03714, 26637, 13166 #### [facility] [address] [place] [address], [place] Hemoglobin (Bld) [Mass/Vol] 15.3 g/dL Normal 12.0-17.0 [facility] Comment on above: Performed By: #### 0 0121, 64438, 61679, 25309, 87896 #### [facility] [address] [place] [address], [facility] IONIZED CALCIUM 1.09 mmol/L Low 1.12-1.32 [facility] Comment on above: Performed By: #### 0 0121, 37321, 31883, 37445, 58125 #### [facility] [address] [place] [address], [facility] Oxygen (Bld) [Partial pressure] 313.0 mm[Hg] High 80.0-105.0 [facility] Comment on above: Performed By: #### 0 0121, 03583, 88079, 51714, 96537 #### [facility] [address] [place] [address], [place] PCO2 47.7 mmHg High 35.0-45.0 [facility] Comment on above: Performed By: #### 0 0121, 59450, 14452, 42052, 85293 #### [facility] [address] [place] [address], [place] pH (Bld) 7.32 [pH] Low 7.35-7.45 [facility] Comment on above: Performed By: #### 0 0121, 64681, 76735, 88835, 87223 #### [facility] [address] [place] [address], [place] Potassium [Moles/Vol] 4.4 mmol/L Normal 3.5-4.9 [facility] Comment on above: Performed By: #### 0 0121, 69511, 80630, 66009, 78708 #### [facility] [address] [place] [address], [place] Sodium [Moles/Vol] 140 mmol/L Normal 138-146 [facility] Comment on above: Performed By: #### 0 0121, 81738, 73552, 45394, 65154 #### [facility] [address] [place] [address], [place] BASE EXCESS -1.0 mmol/L Normal -2.0-3.0 [facility] Comment on above: Performed By: #### 0 0121, 96381, 74258, 10886, 00925 #### [facility] [address] [place] [address], [place] Glucose [Mass/Vol] 146 mg/dL High 70-105 [facility] Comment on above: Performed By: #### 0 0121, 30002, 68785, 41645, 22555 #### [facility] [address] [place] [address], [facility] Hematocrit (Bld) [Volume fraction] 45 % Normal 38-51 [facility] Comment on above: Performed By: #### 0 0121, 50354, 86785, 97688, 68131 #### [facility] [address] [place] [address], [facility] Hemoglobin (Bld) [Mass/Vol] 15.3 g/dL Normal 12.0-17.0 [facility] Comment on above: Performed By: #### 0 0121, 71216, 63529, 72775, 41339 #### [facility] [address] [place] [address], [facility] IONIZED CALCIUM 1.06 mmol/L Low 1.12-1.32 [facility] Comment on above: Performed By: #### 0 0121, 37996, 63384, 15289, 56915 #### [facility] [address] [place] [address], [facility] Oxygen (Bld) [Partial pressure] 319.0 mm[Hg] High 80.0-105.0 [facility] Comment on above: Performed By: #### 0 0121, 24111, 10946, 61765, 43953 #### [facility] [address] [place] [address], [facility] PCO2 50.9 mmHg High 35.0-45.0 [facility] Comment on above: Performed By: #### 0 0121, 96597, 65613, 77806, 16991 #### [facility] [address] [place] [address], [place] pH (Bld) 7.32 [pH] Low 7.35-7.45 [facility] Comment on above: Performed By: #### 0 0121, 54221, 33204, 03657, 67801 #### [facility] [address] [place] [address], [facility] Potassium [Moles/Vol] 4.4 mmol/L Normal 3.5-4.9 [facility] Comment on above: Performed By: #### 0 0121, 58274, 18312, 12704, 88367 #### [facility] [address] [place] [address], [place] Sodium [Moles/Vol] 138 mmol/L Normal 138-146 [facility] Comment on above: Performed By: #### 0 0121, 45178, 59237, 74965, 28237 #### [facility] [address] [place] [address], [facility] BASE EXCESS 0.0 mmol/L Normal -2.0-3.0 The [facility] Comment on above: Performed By: #### 0 0121, 00414, 34063, 98765, 05718 #### [facility] [address] [place] [address], [place] Glucose [Mass/Vol] 116 mg/dL High 70-105 [facility] Comment on above: Performed By: #### 0 0121, 78423, 14888, 24202, 67393 #### [facility] [address] [place] [address], [place] Hematocrit (Bld) [Volume fraction] 43 % Normal 38-51 [facility] Comment on above: Performed By: #### 0 0121, 35877, 97117, 28571, 56212 #### [facility] [address] [place] [address], [place] Hemoglobin (Bld) [Mass/Vol] 14.6 g/dL Normal 12.0-17.0 [facility] Comment on above: Performed By: #### 0 0121, 04368, 62326, 27696, 59840 #### [facility] [address] [place] [address], [place] IONIZED CALCIUM 1.05 mmol/L Low 1.12-1.32 [facility] [place] [facility] Comment on above: Performed By: #### 0 0121, 09034, 83235, 88329, 56692 #### [facility] [address] [place] [address], [place] Oxygen (Bld) [Partial pressure] 409.0 mm[Hg] High 80.0-105.0 [facility] Comment on above: Performed By: #### 0 0121, 03581, 43968, 78313, 52180 #### [facility] [address] [place] [address], [place] PCO2 44.9 mmHg Normal 35.0-45.0 [facility] Comment on above: Performed By: #### 0 0121, 34907, 29353, 25894, 39152 #### [facility] [address] [place] [address], [place] pH (Bld) 7.36 [pH] Normal 7.35-7.45 [facility] Comment on above: Performed By: #### 0 0121, 12714, 68523, 32721, 97733 #### [facility] [address] [place] [address], [place] Potassium [Moles/Vol] 4.5 mmol/L Normal 3.5-4.9 [facility] Comment on above: Performed By: #### 0 0121, 24826, 06612, 51380, 20095 #### [facility] [address] [place] [address], [place] Sodium [Moles/Vol] 138 mmol/L Normal 138-146 [facility] Comment on above: Performed By: #### 0 0121, 73760, 93550, 31106, 73389 #### [facility] [address] [place] [address], [place] BASE EXCESS 0.0 mmol/L Normal -2.0-3.0 [facility] Comment on above: Performed By: #### 0 0121, 94034, 01900, 67589, 25994 #### [facility] [address] [place] [address], [facility] Glucose [Mass/Vol] 101 mg/dL Normal 70-105 [facility] Comment on above: Performed By: #### 0 0121, 68536, 18271, 08034, 75344 #### [facility] [address] [place] [address], [facility] Hematocrit (Bld) [Volume fraction] 44 % Normal 38-51 [facility] Comment on above: Performed By: #### 0 0121, 90903, 29850, 59848, 53398 #### [facility] [address] [place] [address], [facility] Hemoglobin (Bld) [Mass/Vol] 15.0 g/dL Normal 12.0-17.0 [facility] Comment on above: Performed By: #### 0 0121, 33699, 74418, 80302, 38651 #### [facility] [address] [place] [address], [facility] IONIZED CALCIUM 1.02 mmol/L Low 1.12-1.32 [facility] Comment on above: Performed By: #### 0 0121, 82763, 10451, 13201, 02182 #### [facility] [address] [place] [address], [facility] Oxygen (Bld) [Partial pressure] 516.0 mm[Hg] High 80.0-105.0 [facility] Comment on above: Performed By: #### 0 0121, 61784, 85487, 69764, 04470 #### [facility] [address] [place] [address], [place] PCO2 50.7 mmHg High 35.0-45.0 [facility] Comment on above: Performed By: #### 0 0121, 01604, 30363, 69114, 35329 #### [facility] [address] [place] [address], [place] pH (Bld) 7.33 [pH] Low 7.35-7.45 [facility] Comment on above: Performed By: #### 0 0121, 58754, 77139, 40869, 03465 #### [facility] [address] [place] [address], [place] Potassium [Moles/Vol] 4.1 mmol/L Normal 3.5-4.9 [facility] Comment on above: Performed By: #### 0 0121, 66492, 80312, 45994, 49816 #### [facility] [address] [place] [address], [place] Sodium [Moles/Vol] 137 mmol/L Low 138-146 [facility] Comment on above: Performed By: #### 0 0121, 51076, 16326, 21858, 82286 #### [facility] [address] [place] [place] [address], [place] Hematocrit (Bld) [Volume fraction] 43 % Normal 38-51 [facility] Comment on above: Performed By: #### 0 0121, 25190, 66445, 43476, 04424 #### [facility] [address] [place] [address], [place] Hemoglobin (Bld) [Mass/Vol] 14.6 g/dL Normal 12.0-17.0 [facility] Comment on above: Performed By: #### 0 0121, 01943, 80937, 39183, 86906 #### [facility] [address] [place] [address], [place] Oxygen (Bld) [Partial pressure] 51.0 mm[Hg] Normal [facility] Comment on above: Performed By: #### 0 0121, 66687, 38247, 59295, 05632 #### [facility] [address] [place] [address], [facility] BASE EXCESS -4.0 mmol/L Low -2.0-3.0 [facility] Comment on above: Performed By: #### 0 0121, 65495, 20823, 46465, 03348 #### [facility] [address] [place] [address], [place] Glucose [Mass/Vol] 104 mg/dL Normal 70-105 [facility] Comment on above: Performed By: #### 0 0121, 44872, 74338, 00548, 36374 #### [facility] [address] [place] [address], [facility] Hematocrit (Bld) [Volume fraction] 55 % High 38-51 [facility] Comment on above: Performed By: #### 0 0121, 39617, 35432, 68367, 95903 #### [facility] [address] [place] [address], [facility] Hemoglobin (Bld) [Mass/Vol] 18.7 g/dL High 12.0-17.0 [facility] Comment on above: Performed By: #### 0 0121, 30249, 77026, 62396, 28048 #### [facility] [address] [place] [address], [facility] IONIZED CALCIUM 1.24 mmol/L Normal 1.12-1.32 [facility] Comment on above: Performed By: #### 0 0121, 81470, 89267, 08968, 02883 #### [facility] [address] [place] [address], [facility] Oxygen (Bld) [Partial pressure] 159.0 mm[Hg] High 80.0-105.0 [facility] Comment on above: Performed By: #### 0 0121, 08641, 34658, 07273, 17022 #### [facility] [address] [place] [address], [facility] PCO2 48.7 mmHg High 35.0-45.0 [facility] Comment on above: Performed By: #### 0 0121, 74755, 85172, 50083, 22243 #### [facility] [address] [place] [address], [place] pH (Bld) 7.30 [pH] Low 7.35-7.45 [facility] Comment on above: Performed By: #### 0 0121, 80178, 73903, 72181, 85344 #### [facility] [address] [place] [address], [facility] Potassium [Moles/Vol] 4.1 mmol/L Normal 3.5-4.9 [facility] Comment on above: Performed By: #### 0 0121, 56242, 01254, 47020, 57618 #### [facility] [address] [place] [address], [facility] Sodium [Moles/Vol] 139 mmol/L Normal 138-146 [facility] Comment on above: Performed By: #### 0 0121, 90651, 59213, 98768, 16279 #### [facility] [address] [place] [address], [facility] PHOSPHORUS BLOODon 9 Phosphate [Mass/Vol] 4.3 mg/dL Normal 2.5-5.0 [facility] Comment on above: Order Comment: R/O P ulmonary Edema Performed By: #### 0 0121, 95625, 59691 ####[facility] [place] [address], [facility] POC GLUCOSE LABon 03-19-2019 Glucose [Mass/Vol] 115 mg/dL High 70-100 [facility] Comment on above: Performed By: #### 5 7307 #### [facility] [address] [facility] [place] [address], [facility] Glucose [Mass/Vol] 145 mg/dL High 70-100 [facility] Comment on above: Performed By: #### 5 7307 #### [facility] [address] [facility] [place] [address], [facility] Glucose [Mass/Vol] 121 mg/dL High 70-100 [facility] Comment on above: Performed By: #### 8 5499 ####[facility] [facility] [place] [address], [facility] Glucose [Mass/Vol] 122 mg/dL High 70-100 [facility] Comment on above: Performed By: #### 8 5499 ####[facility] [place] [address], [facility] PORTABLE CHEST 1 VIEWon 03-01 PORTABLE CHEST 1 VIEW [facility] Department of Radiology [address] [place], [place] [address] ======== Patient Name: TRACIE CRAIN : 1965 Sex: M Age: Race: NA Pt. Location: [id number] Patient Status: I Ordered Date: 03/19/2019 5:50:00 [...] the upper thoracic trachea in satisfactory position. [place] catheter, chest tubes and enteric tube appear [...] findings. Electronically signed by:Yenni Osuna. Transcribed by: [email or web address], User Resident: EMILIA SHERMAN Electronically Signed by: YENNI OSUNA @ 03/20/2019 05:05 PM I personally read this/these film(s) with this resident Normal [facility] Comment on above: Order Comment: << On admission If not done in ED>> No: Do not add to previous draw PORTABLE CHEST 1 VIEW [facility] Department of Radiology [address] [place] [phone] ======== Patient Name: TRACIE CRAIN : 1965 Sex: M Age: Race: NA Pt. Location: [id number] Patient Status: I Ordered Date: 03/19/2019 4:45:00 [...] right-sided chest tubes appear in satisfactory position. [place] catheter with tip projecting over the pulmonary [...] findings. Electronically signed by:Divya Collins. Transcribed by: [email or web address], User Resident: ANAI ALVARADO Electronically Signed by: DIVYA COLLINS @ 03/20/2019 11:00 AM I personally read this/these film(s) with this resident Normal [facility] Comment on above: Order Comment: << On admission If not done in ED>> No: Do not add to previous draw PORTABLE CHEST 1 VIEW [facility] Department of Radiology [address] [place] [id number] ======== Patient Name: TRACIE CRAIN : 1965 Sex: M Age: Race: NA Pt. Location: [id number] Patient Status: I Ordered Date: 03/19/2019 3:55:00 [...] tubes are in place. No appreciable pneumothorax. [place] catheter in place likely terminating in the [...] disease most likely representing multifocal atelectasis. * [place] catheter likely terminating in the proximal right main pulmonary artery. * Trace pleural fluid bilaterally. Approved by:Pierce Sherman on 03/19/2019 5:04 PM EDT. I, Yenni Osuna, have reviewed the images and report and concur with these findings. Electronically signed by:Yenni Osuna. Transcribed by: [email or web address], User Resident: EMILIA SHERMAN Electronically Signed by: YENNI OSUNA @ 03/20/2019 05:04 PM I personally read this/these film(s) with this resident Normal [facility] Comment on above: Order Comment: << On admission If not done in ED>> No: Do not add to previous draw PROTHROMBIN TIMEon 9 INR Coag (PPP) [Relative time] 1.60 {INR} High 0.91-1.16 [facility] Comment on above: Order Comment: R/O [...] CHEST 1995;108:231S-246S. Performed By: #### 5 6101 ####[facility] [place] [address], [facility] PT Coag (PPP) [Time] 19.1 s High 12.3-14.8 [facility] Comment on above: Order Comment: R/O P ulmonary Edema Result Comment: ALL RESULTS MUST BE INTERPRETED WITH RESPECT TO BLOOD DRAWING ARTIFACT OR DILUTION ERROR OF ANTICOAGULANT AT THE TIME OF SAMPLING. Performed By: #### 5 6101 ####[facility] [place] [address], [facility] INR Coag (PPP) [Relative time] 1.68 {INR} High 0.91-1.16 [facility] Comment on above: Order Comment: If [...] RANGE. CHEST 1995;108:231S-246S. Performed By: #### 8 6443, 43052 #### [facility] [address] [place] [address], [facility] PT Coag (PPP) [Time] 19.9 s High 12.3-14.8 [facility] Comment on above: Order Comment: If no t done in ED No: Do not add to previous draw Result Comment: ALL RESULTS MUST BE INTERPRETED WITH RESPECT TO BLOOD DRAWING ARTIFACT OR DILUTION ERROR OF ANTICOAGULANT AT THE TIME OF SAMPLING. Performed By: #### 8 6768, 82330 #### [facility] [address] INR Coag (PPP) [Relative time] 1.02 {INR} Normal 0.91-1.16 [facility] Comment on above: Order Comment: [...] CHEST 1995;108:231S-246S. Performed By: #### 0 0121, 12948, 05037, 64704, 00684 #### [facility] [address] [facility] PT Coag (PPP) [Time] 13.4 s Normal 12.3-14.8 [facility] Comment on above: Order Comment: If no t done in ED No: Do not add to previous draw Result Comment: ALL RESULTS MUST BE INTERPRETED WITH RESPECT TO BLOOD DRAWING ARTIFACT OR DILUTION ERROR OF ANTICOAGULANT AT THE TIME OF SAMPLING. Performed By: #### 0 0121, 01941, 57116, 48369, 89538 #### [facility] [address] [place] [address], [facility] RBC'S 2 UNITSon 03-19-2019 CROSSMATCH INTERP 1 COMP Normal The [facility] Comment on above: Performed By: #### 0 0121, 03652, 22847, 47351, 41887 #### [facility] [address] [place] [address], [facility] CROSSMATCH INTERP 2 COMP Normal The [facility] Comment on above: Performed By: #### 0 0121, 65773, 38368, 48883, 52784 #### [facility] [address] [place] [address], [facility] PRODUCT CODE 1 E0332 Normal [facility] Comment on above: Performed By: #### 0 0121, 08313, 41952, 09699, 50614 #### [facility] [address] [place] [address], [facility] PRODUCT CODE 2 E0336 Normal [facility] Comment on above: Performed By: #### 0 0121, 49071, 37116, 76334, 41424 #### [facility] [address] [place] [address], [facility] PRODUCT STATUS 1 RE Normal [facility] Comment on above: Result Comment: Resu lt changed by IF on 03/19/2019 08:33. The previous value was XM. Result changed by IF on 03/19/2019 16:19. The previous value was IS. Result changed by IF on 03/20/2019 09:43. The previous value was XM. Result changed by IF on 03/20/2019 09:46. The previous value was XX. Performed By: #### 0 0121, 00192, 21255, 02583, 74453 #### [facility] [address] [place] [address], [facility] PRODUCT STATUS 2 RE Normal [facility] Comment on above: Result Comment: Resu lt changed by IF on 03/19/2019 08:33. The previous value was XM. Result changed by IF on 03/19/2019 16:19. The previous value was IS. Result changed by IF on 03/20/2019 09:43. The previous value was XM. Result changed by IF on 03/20/2019 11:11. The previous value was XX. Performed By: #### 0 0121, 08109, 15752, 16606, 10029 #### [facility] [address] [place] [address], [facility] UNIT ABO 1 O Normal [facility] Comment on above: Performed By: #### 0 0121, 91953, 98811, 20064, 90947 #### [facility] [address] [place] [address], [facility] UNIT ABO 2 O Normal [facility] Comment on above: Performed By: #### 0 0121, 41346, 99046, 41839, 43916 #### [facility] [address] [place] [address], [facility] UNIT ID 1 [id number] Normal [facility] Comment on above: Performed By: #### 0 0121, 58415, 58595, 62354, 13801 #### [facility] [address] [place] [address], [facility] UNIT ID 2 [id number] Normal [facility] Comment on above: Performed By: #### 0 0121, 35000, 53573, 29710, 81865 #### [facility] [address] [place] [address], [place] UNIT RH 1 Negative Normal [facility] Comment on above: Performed By: #### 0 0121, 57878, 32589, 82950, 81446 #### [facility] [address] [place] [address], [place] UNIT RH 2 Negative Normal [facility] Comment on above: Performed By: #### 0 0121, 19902, 80455, 63546, 49412 #### [facility] [address] *MRSA/MSSA DNA NASALon 03-18 *MRSA/MSSA DNA NASAL Clinical Report: (D ) Specimen: NASAL SWAB Collected: 03/18/2019 17:05 Status: Final Last Updated: 03/19/2019 12:12 MSSA DNA (Final) Negative MRSA DNA (Final) Negative Normal [facility] Comment on above: Performed By: #### 8 5123, 59610 #### [facility] [address] APTTon 03-18-2019 aPTT Coag (Bld) [Time] 58.1 s High 25.0-35.0 [facility] Comment on above: Order Comment: << [...] OF HEPARIN. Performed By: #### 0 0121, 91261, 75224, 16012, 46728 #### [facility] [address] aPTT Coag (Bld) [Time] 67.7 s High 25.0-35.0 [facility] Comment on above: Order Comment: << [...] OF HEPARIN. Performed By: #### 0 0121, 79634, 48869, 17034, 54454 #### [facility] [address] [place] [address], [facility] aPTT Coag (Bld) [Time] 74.8 s Critically high 25.0-35.0 [facility] Comment on above: Order Comment: [...] AT 0609. Performed By: #### 0 0121, 76171, 44773, 25024, 66380 #### [facility] [address] [facility] [facility] BASIC METABOLIC PANELon 06- Calcium [Mass/Vol] 9.2 mg/dL Normal 8.6-10.3 [facility] Comment on above: Order Comment: << ON ADMISSION If not done in ED>> No: Do not add to previous draw Performed By: #### 0 0121, 95308, 75129, 29585, 49396 #### [facility] [address] [place] [address], [facility] Chloride [Moles/Vol] 105 mmol/L Normal 98-107 [facility] Comment on above: Order Comment: << ON ADMISSION If not done in ED>> No: Do not add to previous draw Performed By: #### 0 0121, 77626, 01944, 01631, 11587 #### [facility] [address] [place] [address], [facility] CO2 [Moles/Vol] 27 mmol/L Normal 21-31 [facility] Comment on above: Order Comment: << ON ADMISSION If not done in ED>> No: Do not add to previous draw Performed By: #### 0 0121, 95594, 47705, 74750, 89167 #### [facility] [address] [place] [address], [facility] Creatinine [Mass/Vol] 1.11 mg/dL Normal 0.70-1.30 [facility] Comment on above: Order Comment: << ON ADMISSION If not done in ED>> No: Do not add to previous draw Performed By: #### 0 0121, 38571, 51567, 44772, 78280 #### [facility] [address] [place] [address], [facility] GFR/1.73 sq M predicted among blacks MDRD (S/P/Bld) [Vol rate/Area] mL/min/{1.73_m2} Normal >60 [facility] Comment on above: Order Comment: << ON ADMISSION If not done in ED>> No: Do not add to previous draw Performed By: #### 0 0121, 55226, 94476, 29012, 14926 #### [facility] [address] [place] [address], [facility] GFR/1.73 sq M predicted among non-blacks MDRD (S/P/Bld) [Vol rate/Area] mL/min/{1.73_m2} Normal >60 [facility] Comment on above: Order Comment: << ON ADMISSION If not done in ED>> No: Do not add to previous draw Performed By: #### 0 0121, 81849, 93434, 65671, 34296 #### [facility] [address] [place] [address], [place] Glucose [Mass/Vol] 101 mg/dL High 70-100 [facility] Comment on above: Order Comment: << ON ADMISSION If not done in ED>> No: Do not add to previous draw Performed By: #### 0 0121, 20102, 30344, 34920, 60979 #### [facility] [address] [place] [address], [facility] Potassium [Moles/Vol] 4.2 mmol/L Normal 3.5-5.1 [facility] Comment on above: Order Comment: << ON ADMISSION If not done in ED>> No: Do not add to previous draw Performed By: #### 0 0121, 74039, 12590, 65950, 49825 #### [facility] [address] [place] [id number], [facility] Sodium [Moles/Vol] 136 mmol/L Normal 136-145 [facility] Comment on above: Order Comment: << ON ADMISSION If not done in ED>> No: Do not add to previous draw Performed By: #### 0 0121, 74141, 68035, 60209, 76067 #### [facility] [address] [place] [address], [facility] Urea nitrogen [Mass/Vol] 15 mg/dL Normal 7-25 [facility] Comment on above: Order Comment: << ON ADMISSION If not done in ED>> No: Do not add to previous draw Performed By: #### 0 0121, 95638, 76202, 25614, 81737 #### [facility] [address] CBC COMPLETE BLOOD COUNTon 0 - Erythrocyte distribution width (RBC) [Ratio] 12.8 % Normal 11.5-15.0 [facility] Comment on above: Order Comment: << ON ADMISSION If not done in ED>> No: Do not add to previous draw Performed By: #### 0 0121, 35617, 69679, 15819, 01829 #### [facility] [address] [place] [address], [facility] Hematocrit (Bld) [Volume fraction] 55.1 % High 39.0-50.0 [facility] Comment on above: Order Comment: << ON ADMISSION If not done in ED>> No: Do not add to previous draw Performed By: #### 0 0121, 15198, 57390, 23119, 81958 #### [facility] [address] [place] [address], [facility] Hemoglobin (Bld) [Mass/Vol] 17.5 g/dL High 13.0-17.0 [facility] Comment on above: Order Comment: << ON ADMISSION If not done in ED>> No: Do not add to previous draw Performed By: #### 0 0121, 47997, 51990, 32413, 31019 #### [facility] [address] [place] [address], [facility] MCH (RBC) [Entitic mass] 28.6 pg Normal 27.0-33.0 [facility] Comment on above: Order Comment: << ON ADMISSION If not done in ED>> No: Do not add to previous draw Performed By: #### 0 0121, 07857, 11402, 11512, 42515 #### [facility] [address] MCHC (RBC) [Mass/Vol] 31.8 g/dL Low 32.0-35.0 [facility] Comment on above: Order Comment: << ON ADMISSION If not done in ED>> No: Do not add to previous draw Performed By: #### 0 0121, 68434, 86924, 94470, 39332 #### [facility] [address] [place] [address], [facility] MCV (RBC) [Entitic vol] 90.0 fL Normal 82.0-98.0 [facility] Comment on above: Order Comment: << ON ADMISSION If not done in ED>> No: Do not add to previous draw Performed By: #### 0 0121, 28137, 65537, 01077, 93651 #### [facility] [address] [place] [address], [facility] Nucleated RBC/100 WBC (Bld) [Ratio] 0 % Normal 0-0 [facility] Comment on above: Order Comment: << ON ADMISSION If not done in ED>> No: Do not add to previous draw Performed By: #### 0 0121, 55880, 47006, 92005, 59162 #### [facility] [address] [place] [address], [facility] PLAT CNT 286 10*3/uL Normal 150-400 [facility] Comment on above: Order Comment: << ON ADMISSION If not done in ED>> No: Do not add to previous draw Performed By: #### 0 0121, 18769, 25395, 63116, 62341 #### [facility] [address] [place] [address], [facility] RBC (Bld) [#/Vol] 6.12 10*6/uL High 4.20-5.70 [facility] Comment on above: Order Comment: << ON ADMISSION If not done in ED>> No: Do not add to previous draw Performed By: #### 0 0121, 75036, 86825, 47676, 43169 #### [facility] [address] [place] [address], [facility] WBC (Bld) [#/Vol] 9.33 10*3/uL Normal 4.00-10.60 [facility] Comment on above: Order Comment: << ON ADMISSION If not done in ED>> No: Do not add to previous draw Performed By: #### 0 0121, 88869, 14868, 93927, 16646 #### [facility] [address] [place] [address], [facility] MAGNESIUM BLOODon 03-18-2019 Magnesium [Mass/Vol] 2.4 mg/dL Normal 1.9-2.7 [facility] Comment on above: Performed By: #### 0 0121, 14607, 16554, 73609, 03180 #### [facility] [address] [place] [address], [facility] TYPE AND SCREENon 03-18-2019 ABO INTERPRETATION O Normal [facility] Comment on above: Performed By: #### 0 0121, 17477, 38222, 52702, 66451 #### [facility] [address] [place] [address], [facility] RH INTERPRETATION Negative Normal [facility] Comment on above: Performed By: #### 0 0121, 47072, 33268, 49064, 48385 #### [facility] [address] [place] [address], [facility] UFH HEPARIN ASSAYon 03-18-20 19 UNFRACTIONATED HEPARIN 0.19 IU/mL Low 0.30-0.70 [facility] Comment on above: Order Comment: If no t done in ED No: Do not add to previous draw Result Comment: [place] roxaban and Apixaban will interfere with the anti Xa assay used to monitor UFH and LMWH. Performed By: #### 0 0121, 53512, 42939, 87067, 36343 #### [facility] [address] [place] [address], [facility] UNFRACTIONATED HEPARIN 0.29 IU/mL Low 0.30-0.70 [facility] Comment on above: Order Comment: << ON ADMISSION If not done in ED>> No: Do not add to previous draw Result Comment: [place] roxaban and Apixaban will interfere with the anti Xa assay used to monitor UFH and LMWH. Performed By: #### 0 0121, 77831, 64393, 58879, 38645 #### [facility] [address] [place] [address], [facility] UNFRACTIONATED HEPARIN 0.25 IU/mL Low 0.30-0.70 [facility] Comment on above: Result Comment: [place] roxaban and Apixaban will interfere with the anti Xa assay used to monitor UFH and LMWH. Performed By: #### 0 0121, 72932, 78822, 64276, 77966 #### [facility] [address] [place] [address], [place] URINALYSISon 03-18-2019 Appearance (U) CLEAR Normal CLEAR [facility] Comment on above: Order Comment: If no t done in ED No: Do not add to previous draw Performed By: #### 0 0121, 11020, 15104, 21617, 34863 #### [facility] [address] [place] [address], [place] Bilirubin [Mass/Vol] Negative Normal NEGATIVE [facility] Comment on above: Order Comment: If no t done in ED No: Do not add to previous draw Performed By: #### 0 0121, 32421, 61035, 18769, 73834 #### [facility] [address] [place] [address], [place] BLOOD Negative Normal NEGATIVE [facility] Comment on above: Order Comment: If no t done in ED No: Do not add to previous draw Performed By: #### 0 0121, 43002, 95132, 18876, 25254 #### [facility] [address] [place] [address], [place] Color (U) YELLOW Normal YELLOW [facility] Comment on above: Order Comment: If no t done in ED No: Do not add to previous draw Performed By: #### 0 0121, 70266, 75887, 24195, 29992 #### [facility] [address] [place] [address], [place] Glucose [Mass/Vol] Negative Normal NEGATIVE [facility] Comment on above: Order Comment: If no t done in ED No: Do not add to previous draw Performed By: #### 0 0121, 59383, 85654, 07768, 03261 #### [facility] [address] [place] [address], [place] KETONE Negative Normal NEGATIVE [facility] Comment on above: Order Comment: If no t done in ED No: Do not add to previous draw Performed By: #### 0 0121, 25365, 90506, 62481, 41800 #### [facility] [address] [place] [address], [place] LEUK RADHA Negative Normal NEGATIVE [facility] Comment on above: Order Comment: If no t done in ED No: Do not add to previous draw Performed By: #### 0 0121, 90973, 78875, 90539, 92384 #### [facility] [address] [place] [address], [place] MICRO NOT DONE negative chemical reactions unless requested in original order Normal [facility] Comment on above: Order Comment: If no t done in ED No: Do not add to previous draw Performed By: #### 0 0121, 81472, 69734, 05374, 15343 #### [facility] [address] [place] [address], [place] Nitrite Ql (U) Negative Normal NEGATIVE [facility] Comment on above: Order Comment: If no t done in ED No: Do not add to previous draw Performed By: #### 0 0121, 75279, 49300, 98055, 78804 #### [facility] [address] [facility] [place] [address], [facility] pH (Bld) 6.0 Normal 5.0-8.0 [facility] Comment on above: Order Comment: If no t done in ED No: Do not add to previous draw Performed By: #### 0 0121, 63647, 41458, 22084, 95800 #### [facility] [address] [place] [address], [place] Protein (U) [Mass/Vol] Negative Normal NEGATIVE [facility] Comment on above: Order Comment: If no t done in ED No: Do not add to previous draw Performed By: #### 0 0121, 92330, 76977, 69531, 06405 #### [facility] [address] [place] [address], [place] SPEC GRAV 1.017 Normal 1.015-1.020 [facility] Comment on above: Order Comment: If no t done in ED No: Do not add to previous draw Performed By: #### 0 0121, 13330, 33213, 63027, 40558 #### [facility] [address] [place] [address], [facility] APTTon 03-17-2019 aPTT Coag (Bld) [Time] 67.3 s High 25.0-35.0 [facility] Comment on above: Order Comment: [...] THIS PURPOSE. Performed By: #### 0 0121, 48230, 35860, 29244, 10190 #### [facility] [address] [place] [address], [facility] BASIC METABOLIC PANELon 02-28 Calcium [Mass/Vol] 9.1 mg/dL Normal 8.6-10.3 [facility] Comment on above: Order Comment: No: D o not add to previous draw Performed By: #### 0 0121, 84281, 71238, 64227, 93624 #### [facility] [address] [place] [address], [facility] Chloride [Moles/Vol] 101 mmol/L Normal 98-107 [facility] Comment on above: Order Comment: No: D o not add to previous draw Performed By: #### 0 0121, 74224, 43394, 58111, 46950 #### [facility] [address] [place] [address], [place] CO2 [Moles/Vol] 24 mmol/L Normal 21-31 [facility] Comment on above: Order Comment: No: D o not add to previous draw Performed By: #### 0 0121, 52619, 09025, 35740, 31898 #### [facility] [address] [place] [address], [place] Creatinine [Mass/Vol] 1.02 mg/dL Normal 0.70-1.30 [facility] Comment on above: Order Comment: No: D o not add to previous draw Performed By: #### 0 0121, 45252, 61869, 48553, 29121 #### [facility] [address] [place] [address], [place] GFR/1.73 sq M predicted among blacks MDRD (S/P/Bld) [Vol rate/Area] mL/min/{1.73_m2} Normal >60 [facility] Comment on above: Order Comment: No: D o not add to previous draw Performed By: #### 0 0121, 49339, 54278, 86919, 63740 #### [facility] [address] [place] [address], [place] GFR/1.73 sq M predicted among non-blacks MDRD (S/P/Bld) [Vol rate/Area] mL/min/{1.73_m2} Normal >60 [facility] Comment on above: Order Comment: No: D o not add to previous draw Performed By: #### 0 0121, 90063, 29924, 97634, 44562 #### [facility] [address] [place] [address], [place] Glucose [Mass/Vol] 102 mg/dL High 70-100 [facility] Comment on above: Order Comment: No: D o not add to previous draw Performed By: #### 0 0121, 42932, 81898, 54598, 48539 #### [facility] [address] [place] [address], [place] Potassium [Moles/Vol] 3.7 mmol/L Normal 3.5-5.1 [facility] Comment on above: Order Comment: No: D o not add to previous draw Performed By: #### 0 0121, 16939, 97521, 32649, 16192 #### [facility] [address] [place] [address], [facility] Sodium [Moles/Vol] 135 mmol/L Low 136-145 [facility] Comment on above: Order Comment: No: D o not add to previous draw Performed By: #### 0 0121, 49734, 47882, 24748, 62731 #### [facility] [address] [place] [address], [facility] Urea nitrogen [Mass/Vol] 18 mg/dL Normal 7-25 [facility] Comment on above: Order Comment: No: D o not add to previous draw Performed By: #### 0 0121, 47329, 44298, 20085, 11028 #### [facility] [address] [place] [id number], [facility] CBC COMPLETE BLOOD COUNTon 0 - Erythrocyte distribution width (RBC) [Ratio] 12.9 % Normal 11.5-15.0 [facility] Comment on above: Order Comment: No: D o not add to previous draw Performed By: #### 0 0121, 67035, 06264, 75595, 91837 #### [facility] [address] [place] [address], [facility] Hematocrit (Bld) [Volume fraction] 50.6 % High 39.0-50.0 [facility] Comment on above: Order Comment: No: D o not add to previous draw Performed By: #### 0 0121, 79299, 55730, 00305, 61579 #### [facility] [address] [place] [address], [facility] Hemoglobin (Bld) [Mass/Vol] 16.1 g/dL Normal 13.0-17.0 [facility] Comment on above: Order Comment: No: D o not add to previous draw Performed By: #### 0 0121, 22214, 24888, 06771, 57304 #### [facility] [address] [place] [address], [facility] MCH (RBC) [Entitic mass] 28.6 pg Normal 27.0-33.0 [facility] Comment on above: Order Comment: No: D o not add to previous draw Performed By: #### 0 0121, 36135, 06696, 74445, 74390 #### [facility] [address] [place] [address], [facility] MCHC (RBC) [Mass/Vol] 31.8 g/dL Low 32.0-35.0 [facility] Comment on above: Order Comment: No: D o not add to previous draw Performed By: #### 0 0121, 26412, 88444, 87500, 32157 #### [facility] [address] [facility] [address] MCV (RBC) [Entitic vol] 90.0 fL Normal 82.0-98.0 [facility] Comment on above: Order Comment: No: D o not add to previous draw Performed By: #### 0 0121, 74248, 91417, 35938, 76029 #### [facility] [address] [address] [facility] Nucleated RBC/100 WBC (Bld) [Ratio] 0 % Normal 0-0 [facility] Comment on above: Order Comment: No: D o not add to previous draw Performed By: #### 0 0121, 96809, 95636, 84965, 32892 #### [facility] 3000 [facility] [place] [address], [facility] PLAT CNT 274 10*3/uL Normal 150-400 The [facility] Comment on above: Order Comment: No: D o not add to previous draw Performed By: #### 0 0121, 80666, 95356, 55350, 90554 #### [facility] [address] RBC (Bld) [#/Vol] 5.62 10*6/uL Normal 4.20-5.70 [facility] Comment on above: Order Comment: No: D o not add to previous draw Performed By: #### 0 0121, 44205, 94401, 66636, 07327 #### [facility] [address] [place] [address], [facility] WBC (Bld) [#/Vol] 9.65 10*3/uL Normal 4.00-10.60 [facility] Comment on above: Order Comment: No: D o not add to previous draw Performed By: #### 0 0121, 50994, 46368, 33219, 55640 #### [facility] [address] Cardiovascular Lab Reporton 03-17-2019 Cardiovascular Lab Report [facility]: [id number] Department of Physician: Madan Parsons M.D. Division of Service Date: 03/16/2019 Cardiology Birthdate: 1965 Adult Cardiovascular Room #: 3AB [id number] [place] [address] Cardiovascular Laboratory Report CLINICAL PRESENTATION: The patient is a 53-year-old male, who was transferred from [facility], due to his symptoms of shortness of [...] guidance and a micropuncture access technique, a 6-[place]an sheath was placed in the right internal jugular vein. A Clark catheter was then advanced under fluoroscopic hemodynamic monitor to the right atrium. Pressure was obtained in the right atrium, right ventricle, pulmonary artery, pulmonary capillary wedge position. Oxygen saturations drawn from the pulmonary artery and the Nanci cardiac output and cardiac index were calculated. The Clark catheter was then removed. Next, a 6-[place]an Terumo Glidesheath slender was placed in the right radial artery. The radial anti-vasospasm cocktail of nitroglycerin 100 mcg was administered through the sheath. All catheter exchanges were made over the Magic Torque guidewire. A 5-[place] catheter was used to engage the left [...] Day M.D. Date Trans: 03/17/2019 05:03 Jhoan/bessie [id number] cc: Titus Villegas M.D. [address] [facility] [address] Normal [facility] MAGNESIUM BLOODon 03-17-2019 Magnesium [Mass/Vol] 2.2 mg/dL Normal 1.9-2.7 [facility] Comment on above: Order Comment: No: D o not add to previous draw Performed By: #### 0 0121, 56961, 44247, 13931, 59522 #### [facility] [address] [facility] UFH HEPARIN ASSAYon 03-17-20 19 UNFRACTIONATED HEPARIN 0.30 IU/mL Normal 0.30-0.70 [facility] Comment on above: Result Comment: [place] roxaban and Apixaban will interfere with the anti Xa assay used to monitor UFH and LMWH. Performed By: #### 0 0121, 36280, 30548, 38831, 74158 #### [facility] [address] APTTon 03-16-2019 aPTT Coag (Bld) [Time] 63.7 s High 25.0-35.0 [facility] Comment on above: Order Comment: No: [...] OF HEPARIN. Performed By: #### 0 0121, 04834, 33515, 58923, 79138 #### [facility] [address] aPTT Coag (Bld) [Time] 87.5 s Critically high 25.0-35.0 [facility] Comment on above: Order Comment: No: [...] OF HEPARIN. Performed By: #### 0 0121, 52248, 93890, 88174, 02746 #### [facility] [address] Cardiovascular Lab Reporton 03-16-2019 Cardiovascular Lab Report [facility] Patient Name: Paras [facility] Jeri MR #: [id number] Department of Physician: Ilan Danielson MD Division of Service Date: 03/16/2019 Cardiology Birthdate: 1965 Adult Cardiovascular Room #: 3AB [id number] [place] [address] Cardiovascular Laboratory Report PROCEDURE: Transesophageal echocardiogram and cardioversion. INDICATION: Atrial fibrillation. PROCEDURE IN DETAIL: An informed consent was obtained from the patient after explaining indications, risks, benefits, and alternatives. The patient understood and agreed and signed the consent form. The patient was brought to the gold leaf laborer and GERMAN/transesophageal echocardiogram was performed under conscious [...] Danielson MD Date Trans: 03/16/2019 07:28 P/mmo [id number] cc: Titus Villegas M.D. [address] [facility] [address] Normal [facility] ERYTHROPOIETIN [id number] 03-16 ERYTHROPOIETIN 7 mU/mL Normal 4-27 [facility] Comment on above: Order Comment: << [...] may benefit from therapy with recombinant EPO ([facility] [id number],1989). Performed by [employer], [address] [place] [id number] [email or web address], Jann Somers MD - Lab. Director UFH HEPARIN ASSAYon 03-16-20 19 UNFRACTIONATED HEPARIN 0.43 IU/mL Normal 0.30-0.70 [facility] Comment on above: Result Comment: [place] roxaban and Apixaban will interfere with the anti Xa assay used to monitor UFH and LMWH. Performed By: #### 0 0121, 30702, 98816, 65353, 20189 #### [facility] [address] UNFRACTIONATED HEPARIN 0.53 IU/mL Normal 0.30-0.70 [facility] Comment on above: Result Comment: [place] roxaban and Apixaban will interfere with the anti Xa assay used to monitor UFH and LMWH. Performed By: #### 0 0121, 53278, 48373, 53491, 73354 #### [facility] [address] [place] [address], [facility] APTTon 03-15-2019 aPTT Coag (Bld) [Time] 74.0 s Critically high 25.0-35.0 [facility] Comment on above: Order Comment: No: [...] AT 2127 Performed By: #### 0 0121, 71487, 04701, 95566, 78294 #### [facility] [address] [place] [address], [facility] aPTT Coag (Bld) [Time] 84.1 s Critically high 25.0-35.0 [facility] Comment on above: Order Comment: << [...] OF HEPARIN. Performed By: #### 0 0121, 69745, 25400, 60136, 28861 #### [facility] [address] [place] [address], [place] aPTT Coag (Bld) [Time] 59.2 s High 25.0-35.0 [facility] Comment on above: Order Comment: << [...] THIS PURPOSE. Performed By: #### 0 0121, 68916, 90349, 53732, 76321 #### [facility] [address] [place] [address], [facility] BASIC METABOLIC PANELon 06- Calcium [Mass/Vol] 9.9 mg/dL Normal 8.6-10.3 [facility] Comment on above: Order Comment: << On admission If not done in ED>> No: Do not add to previous draw Performed By: #### 0 0121, 67068, 50628, 25372, 88560 #### [facility] [address] [place] [address], [facility] Chloride [Moles/Vol] 101 mmol/L Normal 98-107 [facility] Comment on above: Order Comment: << On admission If not done in ED>> No: Do not add to previous draw Performed By: #### 0 0121, 61468, 75277, 65677, 56611 #### [facility] [address] [place] [address], [facility] CO2 [Moles/Vol] 25 mmol/L Normal 21-31 [facility] Comment on above: Order Comment: << On admission If not done in ED>> No: Do not add to previous draw Performed By: #### 0 0121, 60560, 31007, 21001, 75341 #### [facility] [address] [place] [address], [facility] Creatinine [Mass/Vol] 1.02 mg/dL Normal 0.70-1.30 [facility] Comment on above: Order Comment: << On admission If not done in ED>> No: Do not add to previous draw Performed By: #### 0 0121, 04758, 28109, 14699, 90987 #### [facility] [address] [place] [address], [place] GFR/1.73 sq M predicted among blacks MDRD (S/P/Bld) [Vol rate/Area] mL/min/{1.73_m2} Normal >60 [facility] Comment on above: Order Comment: << On admission If not done in ED>> No: Do not add to previous draw Performed By: #### 0 0121, 90841, 82999, 12083, 22859 #### [facility] [address] [place] [address], [place] GFR/1.73 sq M predicted among non-blacks MDRD (S/P/Bld) [Vol rate/Area] mL/min/{1.73_m2} Normal >60 [facility] Comment on above: Order Comment: << On admission If not done in ED>> No: Do not add to previous draw Performed By: #### 0 0121, 31794, 15117, 72004, 69255 #### [facility] [address] [place] [address], [place] Glucose [Mass/Vol] 100 mg/dL Normal 70-100 [facility] Comment on above: Order Comment: << On admission If not done in ED>> No: Do not add to previous draw Performed By: #### 0 0121, 98905, 65482, 88082, 60591 #### [facility] [address] [place] [address], [place] Potassium [Moles/Vol] 4.0 mmol/L Normal 3.5-5.1 [facility] Comment on above: Order Comment: << On admission If not done in ED>> No: Do not add to previous draw Performed By: #### 0 0121, 88898, 33668, 11053, 75794 #### [facility] [address] [place] [address], [place] Sodium [Moles/Vol] 135 mmol/L Low 136-145 [facility] Comment on above: Order Comment: << On admission If not done in ED>> No: Do not add to previous draw Performed By: #### 0 0121, 45053, 06797, 80592, 89810 #### [facility] [address] [place] [address], [facility] Urea nitrogen [Mass/Vol] 24 mg/dL Normal 7-25 [facility] Comment on above: Order Comment: << On admission If not done in ED>> No: Do not add to previous draw Performed By: #### 0 0121, 61967, 43306, 64094, 26566 #### [facility] [address] CBC COMPLETE BLOOD COUNTon 0 - Erythrocyte distribution width (RBC) [Ratio] 13.1 % Normal 11.5-15.0 [facility] Comment on above: Order Comment: << On admission If not done in ED>> No: Do not add to previous draw Performed By: #### 0 0121, 50616, 03721, 41326, 28438 #### [facility] [address] Hematocrit (Bld) [Volume fraction] 53.6 % High 39.0-50.0 [facility] Comment on above: Order Comment: << On admission If not done in ED>> No: Do not add to previous draw Performed By: #### 0 0121, 17796, 51319, 27316, 12504 #### [facility] [address] [place], [place] [address] Hemoglobin (Bld) [Mass/Vol] 17.4 g/dL High 13.0-17.0 [facility] Comment on above: Order Comment: << On admission If not done in ED>> No: Do not add to previous draw Performed By: #### 0 0121, 09736, 20119, 48441, 63768 #### [facility] [address] [place] [address], [facility] MCH (RBC) [Entitic mass] 28.6 pg Normal 27.0-33.0 [facility] Comment on above: Order Comment: << On admission If not done in ED>> No: Do not add to previous draw Performed By: #### 0 0121, 47844, 82582, 73785, 56812 #### [facility] 3000 [facility]. [address] MCHC (RBC) [Mass/Vol] 32.5 g/dL Normal 32.0-35.0 [facility] Comment on above: Order Comment: << On admission If not done in ED>> No: Do not add to previous draw Performed By: #### 0 0121, 54115, 09875, 99489, 40404 #### [facility] [address] MCV (RBC) [Entitic vol] 88.0 fL Normal 82.0-98.0 [facility] Comment on above: Order Comment: << On admission If not done in ED>> No: Do not add to previous draw Performed By: #### 0 0121, 46752, 02297, 93264, 66299 #### [facility] [address] Nucleated RBC/100 WBC (Bld) [Ratio] 0 % Normal 0-0 [facility] Comment on above: Order Comment: << On admission If not done in ED>> No: Do not add to previous draw Performed By: #### 0 0121, 58518, 58405, 25953, 84964 #### [facility] [address] [facility] [place] [address], [facility] PLAT CNT 286 10*3/uL Normal 150-400 [facility] Comment on above: Order Comment: << On admission If not done in ED>> No: Do not add to previous draw Performed By: #### 0 0121, 45267, 77763, 69447, 35093 #### [facility] [address] [place] [address], [facility] RBC (Bld) [#/Vol] 6.09 10*6/uL High 4.20-5.70 [facility] Comment on above: Order Comment: << On admission If not done in ED>> No: Do not add to previous draw Performed By: #### 0 0121, 56687, 79101, 51004, 39140 #### [facility] [address] [place] [address], [facility] WBC (Bld) [#/Vol] 10.49 10*3/uL Normal 4.00-10.60 [facility] Comment on above: Order Comment: << On admission If not done in ED>> No: Do not add to previous draw Performed By: #### 0 0121, 06178, 84174, 72372, 66306 #### [facility] [address] [place] [address], [facility] LIPID PROFILEon 03-15-2019 Cholesterol [Mass/Vol] 140 mg/dL Normal 120-200 [facility] Comment on above: Order Comment: << On admission If not done in ED>> No: Do not add to previous draw Result Comment: CHOL ESTEROL REFERENCE RANGE: 20 YEARS AND OLDER CARDIOVASCULAR RISK Less than 200 mg/dl Low Risk 200 to 239 mg/dl Borderline Risk 240 mg/dl and greater High Risk Performed By: #### 0 0121, 95658, 75258, 63226, 91767 #### [facility] [address] [place] [address], [facility] Cholesterol in HDL [Mass/Vol] 38 mg/dL Normal 23-92 [facility] Comment on above: Order Comment: << [...] High Risk Performed By: #### 0 0121, 28259, 72173, 03304, 65002 #### [facility] [address] [place] [address], [facility] Cholesterol in LDL [Mass/Vol] 88 mg/dL Normal 0-130 [facility] Comment on above: Order Comment: << On admission If not done in ED>> No: Do not add to previous draw Result Comment: LDL IS A CALCULATION LDL IS ONLY VALID IF THE TRIG IS LESS THAN 400. Performed By: #### 0 0121, 42816, 57057, 85125, 66783 #### [facility] [address] [place] [address], [facility] Cholesterol.total/Ch olesterol in HDL [Mass ratio] 3.7 {ratio} Normal .0-4.5 [facility] Comment on above: Order Comment: << On admission If not done in ED>> No: Do not add to previous draw Performed By: #### 0 0121, 76424, 42291, 69291, 05548 #### [facility] [address] [place] [address], [facility] NON-HDL CHOLESTEROL 102 mg/dL Normal [facility] Comment on above: Order Comment: << On admission If not done in ED>> No: Do not add to previous draw Performed By: #### 0 0121, 11825, 94297, 23728, 44557 #### [facility] [address] [place] [address], [facility] Triglyceride [Mass/Vol] 70 mg/dL Normal 40-149 [facility] Comment on above: Order Comment: << On admission If not done in ED>> No: Do not add to previous draw Result Comment: TRIG LYCERIDE REFERENCE RANGE: 20 YEARS AND OLDER CARDIOVASCULAR RISK LESS THAN 150 mg/dl LOW RISK 150 TO 199 mg/dl BORDERLINE RISK 200 mg/dl AND GREATER HIGH RISK Performed By: #### 0 0121, 36298, 37595, 97167, 98799 #### [facility] [address] [place] [address], [facility] VLDL CHOL 14 mg/dL Normal 0-40 [facility] Comment on above: Order Comment: << On admission If not done in ED>> No: Do not add to previous draw Performed By: #### 0 0121, 36464, 33558, 68406, 08460 #### [facility] [address] TROPONIN-Ion 03-15-2019 Troponin I.cardiac [Mass/Vol] 0.01 ng/mL Normal 0.00-0.04 [facility] Comment on above: Order Comment: << On admission If not done in ED>> No: Do not add to previous draw Result Comment: REFE RENCE RANGES: 0.00 - 0.04 ng/ml NORMAL 0.05 - 0.50 ng/ml INDETERMINATE > 0.50 ng/ml CONSISTENT WITH AN M.I. Performed By: #### 0 0121, 74087, 36712, 12705, 28032 #### [facility] [address] UFH HEPARIN ASSAYon 03-15-20 19 UNFRACTIONATED HEPARIN 0.62 IU/mL Normal 0.30-0.70 [facility] Comment on above: Order Comment: No: D o not add to previous draw Result Comment: [place] roxaban and Apixaban will interfere with the anti Xa assay used to monitor UFH and LMWH. Performed By: #### 0 0121, 25435, 07141, 40974, 11299 #### [facility] [address] [place] [address], [facility] UNFRACTIONATED HEPARIN 0.92 IU/mL Critically high 0.30-0.70 [facility] Comment on above: Result Comment: [place] roxaban and Apixaban will interfere with the anti Xa assay used to monitor UFH and LMWH. RESULTS CHECKED AND CALLED. ACCURATELY READ BACK BY DAXA MONTEJO RN @ 0899 Performed By: #### 0 0121, 88249, 53934, 54765, 71957 #### [facility] [address] [place] [address], [facility] UNFRACTIONATED HEPARIN 0.90 IU/mL Critically high 0.30-0.70 [facility] Comment on above: Result Comment: [place] roxaban and Apixaban will interfere with the anti Xa assay used to monitor UFH and LMWH. RESULTS CHECKED AND CALLED. ACCURATELY READ BACK BY DAXA MONTEJO RN @ 6345 Performed By: #### 0 0121, 43386, 05587, 58050, 54282 #### [facility] [address] [place] [address], [facility] APTTon 03-14-2019 aPTT Coag (Bld) [Time] 32.8 s Normal 25.0-35.0 [facility] Comment on above: Order Comment: [...] PURPOSE. Performed By: #### 5 7307 #### [facility] [address] [facility]. [address] BNP (B-TYPE NATRIURETIC PEPT PACHECO)on 03-14-2019 Natriuretic peptide B (Bld) [Mass/Vol] 112 pg/mL High 0-100 [facility] Comment on above: Order Comment: If no t done in ED No: Do not add to previous draw Result Comment: Give n the appropriate clinical setting a BNP result of >100 pg/mL indicates congestive heart failure. Performed By: #### 8 5123, 34362 #### [facility] [address] [facility] [place] [address], [facility] CBC W/DIFFon 03-14-2019 ABS BASOPHILS 0.1 10*3/uL Normal 0.0-0.2 [facility] Comment on above: Order Comment: If no t done in ED No: Do not add to previous draw Performed By: #### 5 0103 #### [facility] [address] [place] [address], [facility] ABS IMM GRANS 0.1 10*3/uL Normal 0.0-0.2 [facility] Comment on above: Order Comment: If no t done in ED No: Do not add to previous draw Performed By: #### 5 0103 #### [facility] [address] [place] [address], [facility] ABS NEUTROPHILS 7.1 10*3/uL Normal 1.6-7.[address] [facility] Comment on above: Order Comment: If no t done in ED No: Do not add to previous draw Performed By: #### 5 0103 #### [facility] [address] [place] [address], [facility] Basophils/100 WBC (Bld) 1.0 % Normal 0.0-1.0 [facility] Comment on above: Order Comment: If no t done in ED No: Do not add to previous draw Performed By: #### 5 0103 #### [facility] [address] [place] [address], [facility] Eosinophils (Bld) [#/Vol] 0.3 10*3/uL Normal 0.0-0.5 [facility] Comment on above: Order Comment: If no t done in ED No: Do not add to previous draw Performed By: #### 5 0103 #### [facility] [address] [place] [address], [facility] Eosinophils/100 WBC (Bld) 2.8 % Normal 0.0-6.0 [facility] Comment on above: Order Comment: If no t done in ED No: Do not add to previous draw Performed By: #### 5 0103 #### [facility] [address] [place] [address], [place] Erythrocyte distribution width (RBC) [Ratio] 13.2 % Normal 11.5-15.0 [facility] Comment on above: Order Comment: If no t done in ED No: Do not add to previous draw Performed By: #### 5 0103 #### [facility] [address] [place] [address], [facility] Hematocrit (Bld) [Volume fraction] 53.8 % High 39.0-50.0 [facility] Comment on above: Order Comment: If no t done in ED No: Do not add to previous draw Performed By: #### 5 0103 #### [facility] [address] [place] [address], [facility] Hemoglobin (Bld) [Mass/Vol] 17.2 g/dL High 13.0-17.0 The [facility] Comment on above: Order Comment: If no t done in ED No: Do not add to previous draw Performed By: #### 5 0103 #### [facility] [address] [place] [id number], [facility] IMMATURE GRANS 0.5 % Normal 0.0-1.0 [facility] Comment on above: Order Comment: If no t done in ED No: Do not add to previous draw Performed By: #### 5 0103 #### [facility] [address] [place] [address], [facility] Lymphocytes (Bld) [#/Vol] 2.4 10*3/uL Normal 1.2-4.0 The [facility] Comment on above: Order Comment: If no t done in ED No: Do not add to previous draw Performed By: #### 5 0103 #### [facility] [address] [place] [id number], [facility] Lymphocytes/100 WBC (Bld) 21.0 % Normal 20.0-45.0 The [facility] Comment on above: Order Comment: If no t done in ED No: Do not add to previous draw Performed By: #### 5 0103 #### [facility] [address] [place] [address], [place] MCH (RBC) [Entitic mass] 28.9 pg Normal 27.0-33.0 [facility] Comment on above: Order Comment: If no t done in ED No: Do not add to previous draw Performed By: #### 5 0103 #### [facility] [address] [place] [address], [facility] MCHC (RBC) [Mass/Vol] 32.0 g/dL Normal 32.0-35.0 The [facility] Comment on above: Order Comment: If no t done in ED No: Do not add to previous draw Performed By: #### 5 0103 #### [facility] [address] [place] [address], [facility] MCV (RBC) [Entitic vol] 90.4 fL Normal 82.0-98.0 [facility] Comment on above: Order Comment: If no t done in ED No: Do not add to previous draw Performed By: #### 5 0103 #### [facility] [address] [place] [address], [facility] Monocytes (Bld) [#/Vol] 1.4 10*3/uL High 0.1-1.0 The [facility] Comment on above: Order Comment: If no t done in ED No: Do not add to previous draw Performed By: #### 5 0103 #### [facility] [address] [facility] [place] [address], [facility] MONOS 12.2 % High 5.0-12.0 The [facility] Comment on above: Order Comment: If no t done in ED No: Do not add to previous draw Performed By: #### 5 0103 #### [facility] [address] [place] [address], [facility] Neutrophils/100 WBC (Bld) 62.5 % Normal 40.0-72.0 The [facility] Comment on above: Order Comment: If no t done in ED No: Do not add to previous draw Performed By: #### 5 0103 #### [facility] [address] [place] [id number], [facility] Nucleated RBC/100 WBC (Bld) [Ratio] 0 % Normal 0-0 [facility] Comment on above: Order Comment: If no t done in ED No: Do not add to previous draw Performed By: #### 5 0103 #### [facility] [address] [place] [address], [facility] PLAT CNT 321 10*3/uL Normal 150-400 The [facility] Comment on above: Order Comment: If no t done in ED No: Do not add to previous draw Performed By: #### 5 0103 #### [facility] [address] [place] [address], [facility] RBC (Bld) [#/Vol] 5.95 10*6/uL High 4.20-5.70 [facility] Comment on above: Order Comment: If no t done in ED No: Do not add to previous draw Performed By: #### 5 0103 #### [facility] [address] [facility] [place] [address], [facility] WBC (Bld) [#/Vol] 11.32 10*3/uL High 4.00-10.60 [facility] Comment on above: Order Comment: If no t done in ED No: Do not add to previous draw Performed By: #### 5 0103 #### [facility] [address] [facility]. [address] COMP METABOLIC PANELon 03-14 Albumin [Mass/Vol] 4.3 g/dL Normal 3.5-5.7 [facility] Comment on above: Order Comment: << On admission If not done in ED>> No: Do not add to previous draw Performed By: #### 0 0121, 53112, 54824, 35748, 30031 #### [facility] [address] ALKALINE PHOSPH 59 IU/L Normal 34-104 The [facility] Comment on above: Order Comment: << On admission If not done in ED>> No: Do not add to previous draw Performed By: #### 0 0121, 46381, 93818, 00058, 31149 #### [facility] [address] [place] [address], [place] ALT [Catalytic activity/Vol] 21 U/L Normal 7-52 [facility] Comment on above: Order Comment: << On admission If not done in ED>> No: Do not add to previous draw Performed By: #### 0 0121, 57612, 08954, 29266, 70258 #### [facility] [address] [place] [address], [place] AST [Catalytic activity/Vol] 26 U/L Normal 13-39 [facility] Comment on above: Order Comment: << On admission If not done in ED>> No: Do not add to previous draw Performed By: #### 0 0121, 37413, 95449, 63301, 57694 #### [facility] [address] [place] [address], [place] Bilirubin [Mass/Vol] 1.1 mg/dL High 0.3-1.0 [facility] Comment on above: Order Comment: << On admission If not done in ED>> No: Do not add to previous draw Performed By: #### 0 0121, 58468, 99917, 83671, 27446 #### [facility] [address] [place] [address], [place] Calcium [Mass/Vol] 10.5 mg/dL High 8.6-10.3 [facility] [place] [facility] Comment on above: Order Comment: << On admission If not done in ED>> No: Do not add to previous draw Performed By: #### 0 0121, 96466, 56950, 25286, 56943 #### [facility] [address] [place] [address], [place] Chloride [Moles/Vol] 98 mmol/L Normal 98-107 [facility] Comment on above: Order Comment: << On admission If not done in ED>> No: Do not add to previous draw Performed By: #### 0 0121, 04407, 09359, 37490, 40714 #### [facility] [address] [place] [address], [facility] CO2 [Moles/Vol] 31 mmol/L Normal 21-31 [facility] Comment on above: Order Comment: << On admission If not done in ED>> No: Do not add to previous draw Performed By: #### 0 0121, 09791, 55638, 37100, 98205 #### [facility] [address] [place] [address], [facility] Creatinine [Mass/Vol] 1.36 mg/dL High 0.70-1.30 [facility] Comment on above: Order Comment: << On admission If not done in ED>> No: Do not add to previous draw Performed By: #### 0 0121, 16779, 45528, 43552, 84044 #### [facility] [address] [place] [address], [facility] GFR/1.73 sq M predicted among blacks MDRD (S/P/Bld) [Vol rate/Area] mL/min/{1.73_m2} Normal >60 [facility] Comment on above: Order Comment: << On admission If not done in ED>> No: Do not add to previous draw Performed By: #### 0 0121, 16369, 92623, 24519, 57021 #### [facility] [address] [place] [address], [facility] GFR/1.73 sq M predicted among non-blacks MDRD (S/P/Bld) [Vol rate/Area] 55 ml/min/1.73sq m Abnormal >60 The [facility] Comment on above: Order Comment: << On admission If not done in ED>> No: Do not add to previous draw Performed By: #### 0 0121, 54437, 82708, 02416, 63894 #### [facility] [address] [place] [address], [place] Glucose [Mass/Vol] 81 mg/dL Normal 70-100 [facility] [place] [facility] Comment on above: Order Comment: << On admission If not done in ED>> No: Do not add to previous draw Performed By: #### 0 0121, 11452, 39653, 30444, 17354 #### [facility] [address] [place] [address], [place] Potassium [Moles/Vol] 3.8 mmol/L Normal 3.5-5.1 [facility] Comment on above: Order Comment: << On admission If not done in ED>> No: Do not add to previous draw Performed By: #### 0 0121, 87957, 38556, 18150, 32279 #### [facility] [address] [place] [address], [place] Protein [Mass/Vol] 7.4 g/dL Normal 6.0-8.3 [facility] [place] [facility] Comment on above: Order Comment: << On admission If not done in ED>> No: Do not add to previous draw Performed By: #### 0 0121, 88369, 22140, 99156, 64173 #### [facility] [address] [place] [address], [place] Sodium [Moles/Vol] 138 mmol/L Normal 136-145 [facility] [place] [facility] Comment on above: Order Comment: << On admission If not done in ED>> No: Do not add to previous draw Performed By: #### 0 0121, 13878, 90789, 90202, 10963 #### [facility] [address] [place] [address], [place] Urea nitrogen [Mass/Vol] 26 mg/dL High 7-25 [facility] Comment on above: Order Comment: << On admission If not done in ED>> No: Do not add to previous draw Performed By: #### 0 0121, 16842, 29293, 55353, 76283 #### [facility] [address] [place] [address], [facility] FREE T4on 03-14-2019 Free T4 [Mass/Vol] 1.18 ng/dL Normal 0.71-1.85 [facility] [place] [facility] Comment on above: Order Comment: If no t done in ED No: Do not add to previous draw Performed By: #### 0 0121, 68249, 99327, 67722, 60800 #### [facility] [address] [place] [address], [facility] HEMOGLOBIN A1Con 03-14-2019 HbA1c (Bld) [Mass fraction] 103 mg/dL Normal 70-126 [facility] Comment on above: Order Comment: If no t done in ED No: Do not add to previous draw Performed By: #### 8 5123, 67985 #### [facility] [address] [facility]. [address] HbA1c (Bld) [Mass fraction] 5.2 % Normal 4.0-6.0 [facility] Comment on above: Order Comment: If no t done in ED No: Do not add to previous draw Performed By: #### 8 5123, 25747 #### [facility] 3000 [facility]. [address] History and Physicalon 03-14 History and Physical MR#: [id number] [facility] Pt. Name: Argelia Crain Admitted: 03/14/2019 Date of : 1965 Attending Physician: Dimitry Lyles M.D. Room #: [facility] [id number] Discharge Date: HISTORY AND PHYSICAL CHIEF COMPLAINT: Atrial fibrillation and bilateral lower extremity swelling. HISTORY OF PRESENT ILLNESS: Mr. Whitt is a 53-year-old male with the past medical history of depression and GERD, who was transferred from [facility] for atrial fibrillation and congestive heart failure. The patient states that he has been complaining of progressively worsening bilateral lower extremity swelling for the last four months. The patient states that he has never had bilateral lower extremity swelling like this in the past. The patient [facility] and was sent to [facility]. At [facility], EKG showed atrial fibrillation with RVR. Chest x-ray showed bilateral pulmonary venous congestion. The patient was admitted for one day at [facility] and was started on metoprolol 75 mg twice a day and Eliquis. The patient was also diuresed with Lasix and put out around 2.8 L of urine. An echocardiogram was done at [facility], which showed a reduced ejection fraction, but [...] drug use. 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 FAMILY HISTORY: Father [...] he received metoprolol 75 mg b.i.d. at [facility]. His heart rate is currently in the 80s to 90s. Will start him on metoprolol 12.5 mg BID. The patient received a dose of Eliquis today this morning at [facility], will discontinue Eliquis and start him on heparin drip in the evening around 10 p.m. His TSH and T4 were normal at [facility]. If the patient does not convert back to normal sinus rhythm, the patient will have GERMAN/cardioversion on Saturday. 2. Acute systolic CHF exacerbation: An echocardiogram at [facility] showed reduced ejection fraction. The patient was diuresed with Lasix 40 mg IV twice a day at [place] and diuresed around 2.8 L. Will start [...] Lyles M.D. Date Trans: 03/14/2019 01:33 P/bessie [id number] Normal The [facility] MAGNESIUM BLOODon 03-14-2019 Magnesium [Mass/Vol] 2.4 mg/dL Normal 1.9-2.7 [facility] Comment on above: Order Comment: << ON ADMISSION If not done in ED>> No: Do not add to previous draw Performed By: #### 0 0121, 05410, 94837, 48314, 81628 #### [place] [address], [facility] PORTABLE CHEST 1 VIEWon 02-28 PORTABLE CHEST 1 VIEW [facility] Department of Radiology [address] [place] [id number] ======== Patient Name: ARGELIA CRAIN : 1965 Sex: M Age: Race: NA Pt. Location: [id number] Patient Status: I Ordered Date: 03/14/2019 10:35:00 [...] findings. Electronically signed by:Yenni Osuna. Transcribed by: [email or web address], User Resident: KAREEM LIAO Electronically Signed by: YENNI OSUNA @ 03/14/2019 04:53 PM I personally read this/these film(s) with this resident Normal [facility] Comment on above: Order Comment: R/O P ulmonary Edema TROPONIN-Ion 03-14-2019 Troponin I.cardiac [Mass/Vol] 0.00 ng/mL Normal 0.00-0.04 [facility] Comment on above: Order Comment: << On admission If not done in ED>> No: Do not add to previous draw Result Comment: REFE RENCE RANGES: 0.00 - 0.14 ng/ml NEGATIVE 0.15 - 0.25 ng/ml INDETERMINATE > 0.25 ng/ml INDICATIVE OF AN M.I. Performed By: #### 0 0121, 91930, 73372, 33010, 91618 #### [facility] [address] [place] [address], [facility] Troponin I.cardiac [Mass/Vol] 0.01 ng/mL Normal 0.00-0.04 [facility] Comment on above: Order Comment: No: D o not add to previous draw Result Comment: REFE RENCE RANGES: 0.00 - 0.04 ng/ml NORMAL 0.05 - 0.50 ng/ml INDETERMINATE > 0.50 ng/ml CONSISTENT WITH AN M.I. Performed By: #### 0 0121, 77513, 74866, 43405, 37025 #### [facility] [address] [place] [address], [place] TSH3on 03-14-2019 TSH 3RD GENERATION 2.05 uIU/mL Normal 0.34-5.60 [facility] Comment on above: Order Comment: TSH3 with Reflex canceled. TSH3 ordered. Performed By: #### 0 0121, 67561, 74306, 21071, 62553 #### [facility] [address] [place] [address], [facility] CBC With Platelet No Differe ntialon 03-04-2018 Erythrocyte distribution width Auto Ratio (RBC) 13.9 % Normal 11.5-14.5 [facility] Erythrocytes (RBC) 5.34 10*6/uL Normal 4.70-6.10 [facility] Hematocrit (HCT) 49.8 % Normal 42.0-52.0 [facility] Hemoglobin mass conc (Bld) 16.4 g/dL Normal 14.0-18.0 [facility] MCH 30.8 pg Normal 27.0-31.3 [facility] MCHC mass conc (RBC) 33.0 % Normal 33.0-37.0 [facility] MCV 93.3 fL Normal 80.0-100.0 [facility] Platelets 281 10*3/uL Normal 130-400 [facility] WBC (Leukocytes) 9.3 10*3/uL Normal 4.8-10.8 [facility] Comprehensive Metabolic Pane gian 03-04-2018 Alanine aminotransferase (ALT) 20 U/L Normal 0-41 [facility] Albumin 4.6 g/dL Normal 3.9-4.9 [facility] Alkaline phosphatase (ALP) 56 U/L Normal 35-104 [facility] Anion gap 18 mmol/L Critically high 7-13 [facility] Aspartate aminotransferase (AST) 18 U/L Normal 0-40 [facility] Bilirubin (total) 0.7 mg/dL Normal 0.0-1.2 [facility] Calcium 9.4 mg/dL Normal 8.6-10.2 [facility] Chloride 103 mmol/L Normal 98-107 [facility] CO2 20 mmol/L Low 22-29 [facility] Creatinine 0.78 mg/dL Normal 0.70-1.20 [facility] eGFR (black) mL/min/{1.73_m2} Normal >60 [facility] Comment on above: Result Comment: >60 mL/min/1.73m2 EGFR, calc. for ages 18 and older using theMDRD formula (not corrected for weight), is valid for stablerenal function. eGFR (MDRD) mL/min/{1.73_m2} Normal >60 [facility] Comment on above: Result Comment: >60 mL/min/1.73m2 EGFR, calc. for ages 18 and older using theMDRD formula (not corrected for weight), is valid for stablerenal function. Globulin 2.7 g/dL Normal 2.3-3.5 [facility] Glucose mass conc 91 mg/dL Normal 74-109 [facility] Potassium molar conc 4.1 mmol/L Normal 3.5-5.1 [facility] Protein 7.3 g/dL Normal 6.4-8.1 [facility] Sodium 141 mmol/L Normal 132-144 [facility] Urea nitrogen 15 mg/dL Normal 6-20 [facility] Hemoglobin A1con 03-04-2018 Hemoglobin A1c/Hemoglobin.total mass fraction (Bld) 5.5 % Normal 4.8-5.9 [facility] Lipid Panelon 03-04-2018 Cholesterol 167 mg/dL Normal 0-199 [facility] Comment on above: Result Comment: ATP III Cholesterol classification is Desirable. HDL Cholesterol 47 mg/dL Normal 40-59 [facility] Comment on above: Result Comment: ATP III HDL Cholesterol Classification is Desirable.Expected Values:Males: >55 = No Risk 35-55 = Moderate Risk <35 = High RiskFemales: >65 = No Risk 45-65 = Moderate Risk <45 = High RiskNCEP Guidelines: Third Report January 2001>59 = negative risk factor for CHD<40 = major risk factor for CHD LDL Cholesterol 99 mg/dL Normal 0-129 [facility] Comment on above: Result Comment: ATP III LDL Classification is Optimal. Triglyceride 105 mg/dL Normal 0-200 [facility] Comment on above: Result Comment: ATP III Triglycerides Classification is Normal. Prostate Specific Ag Screeno n 03-04-2018 Prostate Specific Ag Screen 2.25 ng/mL Normal 0.00-3.89 [facility] Comment on above: Result Comment: When the Total PSA is between 3.00 and 10.00 ng/mL, considerrequesting a Free PSA to aid in diagnosis. TSH w/out Reflexon 8 Thyroid stimulating hormone (TSH) 2.550 uIU/mL Normal 0.270-4.20 [facility] Thyroxine Freeon 03-04-2018 Thyroxine Free 1.54 ng/dL Normal 0.93-1.70 [facility] Vital Signs Date Time Vital Sign Value Performing Clinician Faci lity 03-21-2019 15:41-0400 Respiratory rate 16 /min TITUS VILLEGAS [facility] Comment on above: Performed By: #### 0 0121, 88479, 81926, 55078, 03250 #### [facility] [address] 03-21-2019 06:18-0400 Respiratory rate 16 /min TITUS VILLEGAS [facility] Comment on above: Performed By: #### 0 0121, 22570, 12583, 60817, 30796 #### [facility] [address] [place] [address], [facility] 03-20-2019 15:18-0400 Respiratory rate 16 /min TITUS VILLEGAS [facility] Comment on above: Performed By: #### 0 0121, 90419, 35057, 99986, 10571 #### [facility] [address] [place] [address], [facility] 03-20-2019 06:10-0400 Respiratory rate 16 /min TITUS ONEILLY [facility] Comment on above: Performed By: #### 0 0121, 67408, 27357, 63706, 91745 #### [facility] [address] [place] [address], [facility] 03-20-2019 01:22-0400 Respiratory rate 16 /min TITUS VILLEGAS [facility] Comment on above: Performed By: #### 0 0121, 19865, 99551, 71701, 46445 #### [facility] [address] [place] [address], [facility] 03-19-2019 22:02-0400 Respiratory rate 16 /min TITUS VILLEGAS [facility] Comment on above: Performed By: #### 5 7307 #### [facility] [address] [place] [address], [facility] 03-19-2019 20:06-0400 Respiratory rate 16 /min TITUS VILLEGAS [facility] Comment on above: Performed By: #### 8 4511, 32686 ####[facility] [place] [address], [facility] 03-19-2019 18:48-0400 Respiratory rate 16 /min TITUS HOFernanda [facility] Comment on above: Order Comment: R/O P ulmonary Edema Performed By: #### 8 4511, 93534 ####[facility] Encounters Encounter Date Encounter Type Care Provider Facility Start: 04-08-2023 End: 04-08-2023 ambulatory [facility] Start: 02-11-2023 End: 02-11-2023 ambulatory [facility] Start: 02-05-2023 End: 02-06-[address] VIET SALAS Facility:[facility] Start: 12-19-2022 End: 12-20-[address] VIET SALAS Facility:[facility] Start: 11-19-2022 End: 11-19-2022 ambulatory [facility] Start: 11-09-2022 End: 11-10-[address] VIET SALAS Facility:[facility] Start: 10-16-2022 End: 10-16-2022 ambulatory VARGAS URIOSTEGUI [facility] Start: 09-14-2022 End: 09-15-2022 ambulatory KAI [...] abnormal findings DR TITUS VILLEGAS . The [facility] Start: 04-05-2022 End: 04-06-[address] TITUS VILLEGAS . Facility:[facility] Start: 04-05-2022 End: 04-06-2022 Encounter for general adult medical examination without abnormal findings DR TITUS VILLEGAS . Facility:[facility] Start: 03-08-2022 End: 03-09-[address] MELIDA CUELLAR Facility:[facility] Start: 05-12-2019 End: 05-13-2019 Patient encounter procedure ILAN ADNIELSON Facility:[facility] Start: 03-14-2019 End: 03-27-2019 Evaluation and management of inpatient TITUS VILLEGAS Facility:[facility] Procedures Date Procedure Procedure Detail Performing Clinician Start: 04-05-[address] MELIDA CUELLAR Comment on above: Performed By: #### P [facility] ####[place] [id number] [place], [place] [address]QdDr. Leonie Beckham Start: 03-19-2019 DESTRUCTION OF CONDU [...] on above: Performed By: #### 0 0121, 83904, 87029, 52412, 89207 #### [facility] [address] Start: 03-16-2019 MEASURE CARDIAC SAMP L \T\ PRESSURE, BILATERAL, PERC [facility] DAY Start: 03-16-2019 FLUOROSCOPY OF LEFT HEART USING OTHER CONTRAST KR[facility] DAY Start: 03-16-2019 FLUOROSCOPY OF MULTI PLE CORONARY ARTERIES USING OTH CONTRAST KRYS DAY Start: 03-16-2019 [employer], Single ILAN DANIELSON Payers Date Payer Category Payer Unknown [id number] 2.16.8 [id number] 1965 Unknown [id number] 2.16.8 [id number] 1965 Unknown [id number] 2.16.84 0.1.921487.3.579.2.593 1964 Unknown [id number] 2.16.84 0.1.428384.3.579.2.593 1964 Unknown [id number] 2.16.84 0.1.260721.3.579.2.593 1964 Unknown [id number] 2.16.84 0.1.793218.3.579.2.593 1964 Unknown [id number] 2.16.84 0.1.916829.3.579.2.593 1964 Unknown [id number] 2.16.84 0.1.018376.3.579.2.593 1964 Unknown [id number] 2.16.84 0.1.684983.3.579.2.593 1964 Unknown [id number] 2.16.84 0.1.541695.3.579.2.593 1964 Unknown [id number] 2.16.84 0.1.699092.3.579.2.593 1964 Unknown [id number] 2.16.84 0.1.838526.3.579.2.593 1964 Unknown [id number] 2.16.84 0.1.060662.3.579.2.593 1964 Unknown [id number] 2.16.84 0.1.575727.3.579.2.593 1964 Unknown [id number] 2.16.84 0.1.667370.3.579.2.593 1964 Unknown [id number] 2.16.84 0.1.811517.3.579.2.593 1964 Unknown [id number] 2.16.84 0.1.078442.3.579.2.593 1964 Unknown [id number] 2.16.84 0.1.846193.3.579.2.593 1960 Self-pay 1960 Unknown [id number] Progress note 04-08-2023 Note Date & Type Note Facility 04-08-2023 Note [facility] Subjective Tracie Crain is a 57 y.o. [...] When compared with ECG of 21-MAR-2019 20:42, NC interval has decreased, Vent. rate has increased [...] has been o (more content not included)... [facility] Progress note 02-11-2023 Note Date & Type Note Facility 02-11-2023 Note [facility] Subjective Tracie Crain is a 57 [...] When compared with ECG of 21-MAR-2019 20:42, NC interval has decreased, Vent. rate has increased [...] sinus rhythm a (more content not included)... [facility] Progress note 11-19-2022 Note Date & Type Note Facility 11-19-2022 Note [facility] Subjective Tracie Crain is a 57 [...] When compared with ECG of 21-MAR-2019 20:42, NC interval has decreased, Vent. rate has increased [...] no lightheadedness. His (more content not included)... [facility] Progress note 10-16-2022 Note Date & [...] All other systems reviewed and are negative. [facility] Progress note 10-16-2022 Note Date & Type Note Facility 10-16-2022 Note [facility] Note Subjective Tracie Crain is [...] echo to mo (more content not included)... [facility] Clinical Note 11-29-2020 Note Date & [...] vaccine, inactivated - Not Given Patient Refuses [facility] Comment on above: Result Comment: Elec tronically [...] Records Found Hospital Course Note MR#: [id number] [facility] Pt. Name: Tracie Crain Admitted: 03/14/2019 Discharged: 03/27/2019 Date of : 1965 Physician: Timbo Black MD DISCHARGE SUMMARY HISTORY: This is a 53-year-old male who was transferred from [facility] for further management of new-onset atrial fibrillation and systolic heart failure. Over the past 2 weeks, he had been having symptoms of lower extremity swelling. He denied chest pain and was very short of breath according to the . At [facility], he was noted to have severe pulmonary venous congestion and was transferred to [facility] after echocardiogram revealed reduced left ventricular systolic [...] section and content) DATE CREATED AUTHOR 03/18/2018 [facility] DATE CREATED AUTHOR AUTHOR'S ORGANIZ ATION 03/02/2020 [facility] DATE CREATED AUTHOR AUTHOR'S ORGANIZ ATION 02/12/2021 [facility] DATE CREATED AUTHOR AUTHOR'S ORGANIZ ATION 02/10/2023 [facility] DATE CREATED AUTHOR AUTHOR'S ORGANIZ ATION 04/09/2023 [facility] FOR RECORDS PERTAINING TO PATIENTS WHO [...] BE BASED ON THE PRIMARY CLINICAL RECORDS. [employer] provides no warranty or guarantee of the accuracy or completeness of information in this document.
--- NOTE | 2023-10-18 14:31 | CA_ITS ---
Patient Name: TRACIE KOCH MR#: [id number] : 1965 Exam Date: 10/18/2023 Ordering Doctor: DR VIET SALAS M.D. ECHOCARDIOGRAM REPORT PROCEDURE: CA ECHO DOPPLER COMPLETE INDICATIONS: Pulmonary hypertension, right ventricular failure, h/o mitral valve repair; 30 mm Physio-ring, CryoMAZE, PFO closure, 40 mm SCARLET AtriClip COMPARISON: None. DESCRIPTION: COMPLETE ECHOCARDIOGRAM Real-time transthoracic echocardiography with 2D, M-mode, spectral and color flow Doppler performed. QUALITY: Technical quality was adequate. 75 , 310#, BSA 2.64 m2 LEFT VENTRICLE: Normal chamber size. Mild concentric left ventricular hypertrophy. Abnormal septal motion: this is not an unusual finding in postoperative patient. LV EF: Normal left ventricular ejection fraction, (55-60%). DIASTOLIC: ATRIAL SEPTUM: Visually appears intact. LEFT ATRIUM: Severe dilatation. RIGHT ATRIUM: Severe dilatation. RIGHT VENTRICLE: Moderate dilatation. Preserved right ventricular systolic function. TRICUSPID VALVE: Normal mobility and thickness. No stenosis with moderate regurgitation. Doppler studies reveal severely (>60) elevated right sided pressures. RVSP 60 mmHg MITRAL VALVE: Trivial mitral regurgitation. An annuloplasty ring is seen in the mitral position with elevated Doppler flows, mean gradient 6.9 mmHg at a heart rate of 84 bpm. AORTIC VALVE: Normal trileaflet appearance. No visible sclerosis. Normal leaflet mobility. No evidence of aortic valve stenosis. No aortic regurgitation. AORTIC ROOT: Normal diameter and appearance. PULMONIC VALVE: Normal thickness and mobility. No stenosis. No regurgitation. PERICARDIUM: No evidence of pericardial effusion. IVC: IVC is dilated (3.1 cm) with no collapse. PLEURA: CONCLUSION: 1. Left ventricular systolic function is normal. LVEF is 55 to 60%. 2. Moderately dilated right ventricle with preserved systolic function. 3. Severe biatrial dilatation. 4. Mitral valve status post repair with elevated Doppler flows [mean gradient 6.9 mmHg at a heart rate of 84 bpm]. Trivial mitral regurgitation. 5. Moderate tricuspid regurgitation. 6. Severely elevated right-sided pressures. RVSP is 60 mmHg. Adult Echocardiography Procedure Report Left Ventricle LVEDD (3.7 - 5.6 cm): 5.53 cm LVESD (2.2 - 4.0 cm): 3.61 cm LVIVS thickness (0.6 - 1.2 cm): 1.24 cm LVPW thickness (0.5 - 1.0 cm): 1.44 cm e': 0.08 m/s LVOT Max Gradient: 2.19 mm[Hg] LVOT Area (cm2): 0.74 m/s Peak Velocity (LVOT): 0.74 m/s Mean Velocity (LVOT): 0.51 m/s LVOT Diameter 2.33 cm Left Atrium LA Volume Index (2D A2C): 38.12 ml/m2 Left Atrium Systolic Dimension: 5.30 cm Mitral Valve Right Ventricle Aorta AO Root Diam: 3.50 cm Ascending Ao Diam: 2.87 cm Aortic Valve AoV Area (Peak Kane): 3.55 cm2, 3.55 cm2 AoV Area (VTI): 4.48 cm2, 4.48 cm2 Peak Velocity(Antegrade Flow): 0.89 m/s Peak Gradient(Antegrade Flow): 3.16 mm[Hg] Mean Velocity(Antegrade Flow): 0.56 m/s Mean Gradient(Antegrade Flow): 1.48 mm[Hg] Velocity Time Integral: 15.45 cm Tricuspid Valve Peak Velocity (Regurgitant Flow): 3.11 m/s, 3.35 m/s, 3.17 m/s Pulmonic Valve Peak Velocity: 1.09 m/s Peak Gradient: 5.59 mm[Hg], 4.04 mm[Hg] Right Atrium Right Atrium Systolic Pressure: 86.01 ml, 86.01 ml Dictated by: Viet Salas M.D. on 10/18/2023 at 19:02 Approved by: Viet Salas M.D. on 10/18/2023 at 19:12
== END 2023-10-18 13:49 | disposition home or self-care (01) ==
LOC: CARD 13:49
PROVIDERS: PCP Family Medicine; Visit Provider Internal Medicine Interventional Cardiology
DX: I27.20 Pulmonary hypertension, unspecified (principal); I50.812 Chronic right heart failure
CPT/HCPCS: 93306

== ENCOUNTER 2023-11-11 13:36 | Outpatient (OUT) | payer BC, SELFPAY ==
--- OUTSIDE RECORDS SUMMARY | 2023-11-11 13:44 | XMS_ITS | CCD ---
Author Name Unknown Address [address] [facility] [address] [place] [address] Organization [facility] Care Team Providers Care Liquid Fertilizer Servicer Name Role Phone TITUS VILLEGAS Referring Unavailable SELF, REFERRED Primary Care Unavailable ANABELL TIMBO Attending Unavailable JIAN SYED Admitting Unavailable [place] Procedure Practitioner Unavailab KRYS De La Torre Surgeon Unavailable [place] Procedure Practitioner Unavailab le ILAN CABA Surgeon Unavailable [place] Procedure Practitioner Unavailab rishabh BLACK, TIMBO Surgeon Unavailable [place] Procedure Practitioner Unavailab MYA De La Rosa Surgeon Unavailable SHIKHA ALAMIR, MOSHRIK Attending Unavailable ABD ALAMIR, MOSHRIK Admitting Unavailable ANABELL, TIMBO Referring Unavailable TITUS VILLEGAS Primary Care Unavailable EDGAR, DR MELIDA Owen Consulting Unavailable NELLY Lloyd, DR QURESHI Primary Care Unavailable WEST, DR MELIDA Owen Attending Unavailable WEST, DR MELIDA Owen Admitting Unavailable ZIEBDARLEEN, DR LYNDA Gonzalez Consulting Unavailable WEST, DR MELIDA Owen Consulting Unavailable NELLY ., DR QURESHI Primary Care Unavailable WEST, DR MELIDA Owen Attending Unavailable EDGAR, DR MELIDA Owen Admitting Unavailable WEST, DR MELIDA Owen Consulting Unavailable NELLY ., DR QURESHI Primary Care Unavailable WEST, DR MELIDA Owen Attending Unavailable WEST, DR MELIDA Owen Admitting Unavailable WEST, DR MELIDA Owen Consulting Unavailable NELLY ., DR QURESHI Primary Care Unavailable WEST, DR MELIDA Owen Attending Unavailable EDGAR, DR MELIDA Owen Admitting Unavailable REGINALDO, DR LYNDA Gonzalez Consulting Unavailable EDGAR, DR MELIDA Owen Consulting Unavailable ENLLY ., DR QURESHI Primary Care Unavailable WEST, DR MELIDA Owen Attending Unavailable WEST, DR MELIDA Owen Admitting Unavailable REGINALDO, DR LYNDA Gonzalez Consulting Unavailable EDGAR, DR MELIDA Owen Consulting Unavailable [...] Attending Unavailable MOUKARBEL, DR LLANOS Admitting Unavailable LALY, KAI Consulting Unavailable HOY ., DR QURESHI Primary Care Unavailable LALY, KAI Attending Unavailable LALY, KIA Admitting Unavailable MOUKARBEL, DR LLANOS Consulting Unavailable [...] VIET Attending Unavailable MOUKARBEL, VIET Attending Unavailable MOUKARBEL, VIET Attending Unavailable MOUKARBEL, VIET Attending Unavailable Problems Active Problems Problem Classification Problem Date Documented Da te Episodic/Chronic Cardiac dysrhythmias (2 sources) Paroxysmal atrial fibrillation; Translations: [Paroxysmal atrial fibrillation] Onset: 10-16-2022 Chronic Congestive heart failure; nonhypertensive (20 sources) Chronic systolic (congestive) heart failure; Translations: [Acute on chronic right heart failure] Onset: 06-27-2022 Chronic Heart valve disorders (1 source) Rheumatic tricuspid insufficiency; Translations: [RHEUMATIC TRICUSPID INSUFFICIENCY] Onset: 11-15-2022 Chronic Other circulatory disease (2 sources) Other hypotension; Translations: [Other hypotension] Onset: 10-23-2023 Episodic Pulmonary heart disease (2 sources) Pulmonary hypertension, [...] of left lower extremity] Onset: 2 Episodic Unclassified (1 source) Atrial septal defect, unspecified; Translations: [Atrial septal defect, unspecified] Onset: 3 Varicose veins of lower extremity (5 sources) Varicose veins of bilateral lower extremities with pain; Translations: [VARICOSE VNS UZIEL LOW EXTREM W/PAIN] Onset: 2 Episodic Results Test Name Value Interpretation Reference Range Facility Office Visiton 10-23-2023 Follow-up visit [id number] Tracie Crain 1965 M Date Provider Department Center 10/23/2023 VIET MARIA RUSLAN [facility] Family History Problem Relation Age of Onset Atrial fibrillation Mother Alzheimer's disease Mother Family Status - Relation Status Age at Mother Level of Service:27159 [place] OFFICE/OUTPATIENT ESTABLISHED MOD MDM 30 MIN Normal [facility] Office Visiton 04-08-2023 Follow-up visit [id number] Tracie Crain 1965 M Date Provider Department Center 04/08/2023 VIET MARIA RUSLAN [facility] Family History Problem Relation Age of Onset Atrial fibrillation Mother Alzheimer's disease Mother Family Status - Relation Status Age at Mother Level of Service:61837 [place] OFFICE/OUTPATIENT ESTABLISHED MOD MDM 30-39 MIN Normal [facility] Office Visiton 02-11-2023 Follow-up visit [id number] Tracie Crain 1965 M Date Provider Department Center 02/11/2023 VIET MARIA RUSLAN [facility] Family History Problem Relation Age of Onset Atrial fibrillation Mother Alzheimer's disease Mother Family Status - Relation Status Age at Mother Level of Service:56397 [place] OFFICE/OUTPATIENT ESTABLISHED MOD MDM 30-39 MIN Normal [facility] ECHOCARDIO M/2D COMPLETEon 0 02-05-2023 ECHOCARDIO M/2D COMPLETE Patient: TRACIE CRAIN Exam Date: 02/05/2023 : 1965 Gender:M Ordering : DR VIET SALAS M.D. Admission #: [id number] Family : Order #: [id number] CLICK HERE TO VIEW EXAM ECHOCARDIOGRAM REPORT [...] Jenkins M.D. on 02/05/2023 at 16:31 Normal [facility] BNPon 12-19-2022 Natriuretic peptide B (Bld) [Mass/Vol] 859.0 pg/mL Normal <=900.0 [facility] Comment on above: Performed By: #### B MP, BNP #### [facility] [address] [place] [address] Dr. Leonie Beckham PROF CHEM 8 (BAS METB)on Anion gap [Moles/Vol] 9.9 mmol/L Normal [facility] Comment on above: Performed By: #### B MP, BNP #### [facility] [address] [place] [address] Dr. Leonie Beckham Calcium [Mass/Vol] 9.4 mg/dL Normal 8.5-10.1 [facility] Comment on above: Performed By: #### B MP, BNP #### [facility] [address] [place] [address] Dr. Leonie Beckham Chloride [Moles/Vol] 102 mmol/L Normal 98-107 [facility] Comment on above: Performed By: #### B MP, BNP #### [facility] [address] [address] [address] Leonie Beckham CO2 [Moles/Vol] 32.0 mmol/L Normal 21.0-32.0 [facility] Comment on above: Performed By: #### B MP, BNP #### [facility] [address] [address] [address] Leonie Beckham Creatinine [Mass/Vol] 1.17 mg/dL Normal 0.70-1.[address] [facility] Comment on above: Performed By: #### B MP, BNP #### [facility] [address] [place] [address] Dr. Leonie Beckham EGFR-AF SOLOMON ISLANDER >60 Normal >=60 [facility] Comment on above: Performed By: #### B MP, BNP #### [facility] [address] [place] [address] Dr. Leonie Beckham EGFR-NON AF [place]LANDER >60 Normal >=60 [facility] Comment on above: Performed By: #### B MP, BNP #### [facility] [address] [place] [address] Dr. Leonie Beckham Glucose [Mass/Vol] 106 mg/dL Normal 74-106 [facility] Comment on above: Performed By: #### B MP, BNP #### [facility] [address] [place] [address] Dr. Leonie Beckham Potassium [Moles/Vol] 3.9 mmol/L Normal 3.5-5.[address] [facility] Comment on above: Performed By: #### B MP, BNP #### [facility] [address] [place] [address] Dr. Leonie Beckham Sodium [Moles/Vol] 140 mmol/L Normal 136-145 [facility] Comment on above: Performed By: #### B MP, BNP #### [facility] [address] [place] [address] Dr. Leonie Beckham Urea nitrogen [Mass/Vol] 25.0 mg/dL Critically high 7.0-18.0 [facility] Comment on above: Performed By: #### B MP, BNP #### [facility] [address] [place], [place] [id number] Dr. Leonie Beckham Urea nitrogen/Creatinine [Mass ratio] 21.4 mg/mg Normal [facility] Comment on above: Performed By: #### B MP, BNP #### [facility] [id number] Leonie Beckham Office Visiton 11-19-2022 Follow-up visit [id number] Tracie Crain 1965 M Date Provider Department Center 11/19/2022 VIET MARIA [facility] Family History Problem Relation Age of Onset Atrial fibrillation Mother Alzheimer's disease Mother Family Status - Relation Status Age at Mother Level of Service:48176 [place] OFFICE/OUTPATIENT ESTABLISHED MOD MDM 30-39 MIN Reason for Visit and Comments: Congestive Heart Failure [127] Valve Disorder [3372] Normal [facility] ECHOCARDIO M/2D COMPLETEon 0 11-09-2022 ECHOCARDIO M/2D COMPLETE Patient: TRACIE CRAIN Exam Date: 11/09/2022 : 1965 Gender:M Ordering : DR VIET SALAS M.D. Admission #: [id number] Family : TITUS VILLEGAS . Order #: [id number] CLICK HERE TO VIEW EXAM ECHOCARDIOGRAM REPORT [...] Salas M.D. on 11/09/2022 at 16:31 Normal [facility] PROF CHEM 8 (BAS METB)on Anion gap [Moles/Vol] 8.0 mmol/L Normal [facility] Comment on above: Performed By: #### B MP #### [facility] [address] [address] [address] Leonie Beckham Calcium [Mass/Vol] 8.6 mg/dL Normal 8.5-10.1 [facility] Comment on above: Performed By: #### B MP #### [facility] [address] [address] [address] Leonie Beckham Chloride [Moles/Vol] 102 mmol/L Normal 98-[address] [facility] Comment on above: Performed By: #### B MP #### [facility] [address] [address] [address] Leonie Beckham CO2 [Moles/Vol] 31.5 mmol/L Normal 21.0-32.0 [facility] Comment on above: Performed By: #### B MP #### [facility] [address] [address] [address] Leonie Beckham Creatinine [Mass/Vol] 1.13 mg/dL Normal 0.70-1.[address] [facility] Comment on above: Performed By: #### B MP #### [facility] [address] [address] [address] Leonie Beckham EGFR-AF [place] ISLANDER >60 Normal >=60 [facility] Comment on above: Performed By: #### B MP #### [facility] [address] [address] [address] Leonie Beckham EGFR-NON AF [place] ISLANDER >60 Normal >=[address] [facility] Comment on above: Performed By: #### B MP #### [facility] [address] [address] [address] Leonie Beckham Glucose [Mass/Vol] 100 mg/dL Normal 74-106 [facility] Comment on above: Performed By: #### B MP #### [facility] [address] [address] [address] Leonie Beckham Potassium [Moles/Vol] 3.5 mmol/L Normal 3.5-5.1 [facility] Comment on above: Performed By: #### B MP #### [facility] [address] [address] [address] Leonie Beckham Sodium [Moles/Vol] 138 mmol/L Normal 136-145 [facility] Comment on above: Performed By: #### B MP #### [facility] [address] [address] [address] Leonie Beckham Urea nitrogen [Mass/Vol] 24.0 mg/dL Critically high 7.0-18.0 [facility] Comment on above: Performed By: #### B MP #### [facility] [address] [address] [address] Leonie Beckham Urea nitrogen/Creatinine [Mass ratio] 21.2 mg/mg Normal [facility] Comment on above: Performed By: #### B MP #### [facility] [address] [address] [address] Leonie Beckham ECHOCARDIO M/2D COMPLETEon 0 06-27-2022 ECHOCARDIO M/2D COMPLETE Patient: TRACIE CRAIN Exam Date: 06/27/2022 : 1965 Gender:M Ordering : KAI RUFFIN [facility] Admission #: [id number] Family : DR TITUS VILLEGAS . Order #: [id number] CLICK HERE TO VIEW EXAM ECHOCARDIOGRAM REPORT [...] Salas M.D. on 06/27/2022 at 18:23 Normal [facility] VC CONSULT FOLLOWUPon 2021 VC CONSULT FOLLOWUP Patient: TRACIE CRAIN Exam Date: 06/13/2022 : 1965 Gender:M Ordering : DR MELIDA CUELLAR M.D. Admission #: [id number] Family : Order #: [id number] CLICK HERE TO VIEW EXAM RADIOLOGY REPORT [...] Cuellar MD on 06/13/2022 at 14:59 Normal [facility] VC EXT VENOUS RT LIMITEDon 0 06-13-2022 VC EXT VENOUS RT LIMITED Patient: TRACIE CRAIN Exam Date: 06/13/2022 : 1965 Gender:M Ordering : DR MELIDA CUELLAR M.D. Admission #: [id number] Family : Order #: [id number] CLICK HERE TO VIEW EXAM RADIOLOGY REPORT [...] veins in the medial right leg. Associated director of strategic initiatives distal medial also thrombosed 3.1 mm from PTV. COMPRESSIBILITY: Non-compressible AND partially compressible segments. FLOW: Areas of no flow. OTHER: Incompetent varicose vein proximal/lateral lower leg measures 4.4mm with 0.8s reflux. *Exam performed in accordance with [facility] practice guidelines- Peripheral venous ultrasound, December 24, 2009. CONCLUSION: Post ablation occlusion of treated incompetent varicose veins with residual incompetent varicose veins measuring up to 4.4 mm Dictated by: Melida Cuellar MD on 06/13/2022 at 15:42 Approved by: Melida Cuellar MD on 06/13/2022 at 15:42 Normal [facility] VC INJ FOAM SCLERO W US MLTI on 06-07-2022 VC INJ FOAM SCLERO W US MLTI Patient: TRACIE CRAIN Exam Date: 06/07/2022 : 1965 Gender:M Ordering : DR MELIDA CUELLAR M.D. Admission #: [id number] Family : Order #: [id number] CLICK HERE TO VIEW EXAM RADIOLOGY REPORT [...] for (more content not included)... Normal [facility] VC CONSULT FOLLOWUPon 2021 VC CONSULT FOLLOWUP Patient: TRACIE CRAIN Exam Date: 06/01/2022 : 1965 Gender:M Ordering : DR MELIDA CUELLAR M.D. Admission #: [id number] Family : Order #: [id number] CLICK HERE TO VIEW EXAM RADIOLOGY REPORT [...] Cuellar MD on 06/01/2022 at 09:48 Normal [facility] VC EXT VENOUS LT LIMITEDon 0 06-01-2022 VC EXT VENOUS LT LIMITED Patient: TRACIE CRAIN Exam Date: 06/01/2022 : 1965 Gender:M Ordering : DR MELIDA CUELLAR M.D. Admission #: [id number] Family : Order #: [id number] CLICK HERE TO VIEW EXAM RADIOLOGY REPORT [...] Cuellar MD on 06/01/2022 at 09:29 Normal [facility] VC INJ FOAM SCLERO W US MLTI on 05-25-2022 VC INJ FOAM SCLERO W US MLTI Patient: TRACIE CRAIN Exam Date: 05/25/2022 : 1965 Gender:M Ordering : DR MELIDA CUELLAR M.D. Admission #: [id number] Family : Order #: [id number] CLICK HERE TO VIEW EXAM RADIOLOGY REPORT [...] Aguilar M.D. on 05/25/2022 at 11:44 Normal [facility] VC CONSULT FOLLOWUPon 2021 VC CONSULT FOLLOWUP Patient: TRACIE CRAIN Exam Date: 05/14/2022 : 1965 Gender:M Ordering : DR MELIDA CUELLAR M.D. Admission #: [id number] Family : Order #: [id number] CLICK HERE TO VIEW EXAM RADIOLOGY REPORT [...] Aguilar M.D. on 05/14/2022 at 09:41 Normal [facility] VC EXT VENOUS RT LIMITEDon 0 05-14-2022 VC EXT VENOUS RT LIMITED Patient: TRACIE CRAIN. Exam Date: 05/14/2022 : 1965 Gender:M Ordering : DR MELIDA CUELLAR M.D. Admission #: [id number] Family : Order #: [id number] CLICK HERE TO VIEW EXAM RADIOLOGY REPORT [...] Aguilar M.D. on 05/14/2022 at 09:35 Normal [facility] VC ENDOVENOUS ABL PERFORATIN G RTon 05-10-2022 VC ENDOVENOUS ABL PERFORATING RT Patient: TRACIE CRAIN Exam Date: 05/10/2022 : 1965 Gender:M Ordering : DR MELIDA CUELLAR M.D. Admission #: [id number] Family : Order #: [id number] CLICK HERE TO VIEW EXAM RADIOLOGY REPORT PROCEDURE: VEIN LENA ENDOVENOUS ABLATION FOR VEIN RIGHT GREAT SAPHENOUS VEIN COMPARISON: None. INDICATIONS: Pain co-occurrent and due to varicose veins of bilateral legs I83.813 OPERATIVE REPORT: Diagnosis: Superficial venous reflux, incompetent perforating veins Procedure: Endovenous laser ablation of the left director of strategic initiatives(s) Procedure: The patient was positioned supine on [...] Cuellar MD on 05/10/2022 at 10:50 Normal [facility] VC CONSULT FOLLOWUPon 2021 VC CONSULT FOLLOWUP Patient: TRACIE CRAIN Exam Date: 05/04/2022 : 1965 Gender:M Ordering : DR MELIDA CUELLAR M.D. Admission #: [id number] Family : Order #: [id number] CLICK HERE TO VIEW EXAM RADIOLOGY REPORT [...] Aguilar M.D. on 05/04/2022 at 08:38 Normal [facility] VC EXT VENOUS LT LIMITEDon 0 05-04-2022 VC EXT VENOUS LT LIMITED Patient: TRACIE CRAIN Exam Date: 05/04/2022 : 1965 Gender:M Ordering : DR MELIDA CUELLAR M.D. Admission #: [id number] Family : Order #: [id number] CLICK HERE TO VIEW EXAM RADIOLOGY REPORT [...] Aguilar M.D. on 05/04/2022 at 08:32 Normal [facility] VC ENDOVENOUS ABL 1ST V LTon 04-27-2022 VC ENDOVENOUS ABL 1ST V LT Patient: TRACIE CRAIN Exam Date: 04/27/2022 : 1965 Gender:M Ordering : DR MELIDA CUELLAR M.D. Admission #: [id number] Family : Order #: [id number] CLICK HERE TO VIEW EXAM RADIOLOGY REPORT PROCEDURE: VEIN CENTER ENDOVENOUS ABLATION FIRST VEIN LEFT COMPARISON: None. INDICATIONS: Pain co-occurrent and due to varicose veins of bilateral legs I83.813 OPERATIVE REPORT: The risks and benefits of the procedure had been previously discussed, and were rediscussed at length. Informed written consent was obtained by me and [employer]. Time out procedure was [...] M.D. on 04/27/2022 at 10:32 Normal [facility] CBC AUTO DIFFon 04-05-2022 BASO # 0.1 103/ul Normal 0.0-0.[address] [facility] Comment on above: Performed By: #### C BC ####[facility] [address] [address]Dr. Leonie Beckham Basophils/100 WBC (Bld) 1.2 % Normal 0.2-2.[address] [facility] Comment on above: Performed By: #### C BC ####[facility] [address] [address]DrGabino Beckham EO # 0.3 103/ul Normal 0.0-0.[address] [facility] Comment on above: Performed By: #### C BC ####[facility] [address] [address]DrGabino Beckham Eosinophils/100 WBC (Bld) 3.9 % Normal 0.9-7.[address] [facility] Comment on above: Performed By: #### C BC ####[facility] [address] [address]DrGabino Beckham Erythrocyte distribution width (RBC) [Ratio] 13.2 % Normal 11.0-15.0 [facility] Comment on above: Performed By: #### C BC ####[facility] [address] [address]Dr. Leonie Beckham Hematocrit (Bld) [Volume fraction] 43.5 % Normal 42.0-54.0 [facility] Comment on above: Performed By: #### C BC ####[facility] [address] [address]Dr. Leonie Beckham Hemoglobin (Bld) [Mass/Vol] 13.9 g/dL Critically low 14.0-18.0 [facility] Comment on above: Performed By: #### C BC ####[facility] [address] [place], [place] [address]Dr. Leonie Beckham IG # 0.03 10e3/ul Normal 0.00-0.03 [facility] Comment on above: Performed By: #### C BC ####[facility] [address] [place], [place] [address]Dr. Leonie Beckham IG % 0.4 % Normal 0.0-0.5 [facility] Comment on above: Performed By: #### C BC ####[facility] [address] [place], [place] [address]DrGabino Beckham LYMPH # 2.0 103/ul Normal 1.2-3.8 [facility] Comment on above: Performed By: #### C BC ####[facility] [address] [place], [place] [address]DrGabino Beckham Lymphocytes/100 WBC (Bld) 25.0 % Normal 20.5-60.[address] [facility] Comment on above: Performed By: #### C BC ####[facility] [address] [place], [place] [address]DrGabino Beckham MANUAL DIFF REQ NO Normal [facility] Comment on above: Performed By: #### C BC ####[facility] [address] [place], [place] [address]DrGabino Beckham MCH (RBC) [Entitic mass] 30.2 pg Normal 25.9-34.0 [facility] Comment on above: Performed By: #### C BC ####[facility] [address] [address]DrGabino Beckham MCHC (RBC) [Mass/Vol] 32.0 g/dL Normal 29.9-35.[address] [facility] Comment on above: Performed By: #### C BC ####[facility] [address] [address]DrGabino Beckham MCV (RBC) [Entitic vol] 94.4 fL Critically high 80.0-94.[address] [facility] Comment on above: Performed By: #### C BC ####[facility] [address] [place], [place] [address]DrGabino Beckham MONO # 1.0 103/ul Critically high 0.3-0.8 [facility] Comment on above: Performed By: #### C BC ####[facility] [address] [place], [place] [address]DrGabino Beckham Monocytes/100 WBC (Bld) 12.0 % Normal 1.7-12.[address] [facility] Comment on above: Performed By: #### C BC ####[facility] [address] [place], [place] [address]DrGabino Beckham NEUT # 4.6 103/ul Normal 1.4-6.[address] [facility] Comment on above: Performed By: #### C BC ####[facility] [address] [place], [place] [address]DrGabino Beckham Neutrophils/100 WBC (Bld) 57.5 % Normal 43.0-75.[address] [facility] Comment on above: Performed By: #### C BC ####[facility] [address] [place], [place] [address]DrGabino Beckham Platelet mean volume (Bld) [Entitic vol] 9.4 fL Critically low 9.5-13.[address] [facility] Comment on above: Performed By: #### C BC ####[facility] [address] [place], [place] [address]DrGabino Beckham PLT 203 103/ul Normal 150-[address] [facility] Comment on above: Performed By: #### C BC ####[facility] [address] [id number]. Leonie Beckham RBC 4.61 106/ul Critically low 4.70-6.10 [facility] Comment on above: Performed By: #### C BC ####[facility] [address] [id number]. Leonie Beckham WBC 8.0 103/ul Normal 4.0-11.0 [facility] Comment on above: Performed By: #### C BC ####[facility] [address] [address]Dr. Leonie Beckham FREE T3on 04-05-2022 FREE T3 2.54 pg/mlL Normal 2.18-3.98 [facility] Comment on above: Performed By: #### T SH, LIPID, CMP, T4, FT3 ####[facility] [address] [address]Dr. Leonie Beckham GLYCOHEMOGLOBIN A1Con 2021 ADA RECOMMENDATION SEE BELOW Normal [facility] Comment on above: Result Comment: ADA RECOMMENDED LIMIT 4.0 - 6.0 ADA THERAPEUTIC TARGET < 7.0 ACTION SUGGESTED > 7.0 Performed By: #### A 1C ####[facility] [address] [address]Dr. Leonie Beckham Glucose [Mass/Vol] 126 mg/dL Normal [facility] Comment on above: Performed By: #### A 1C ####[facility] [address] [id number]. Leonie Beckham HbA1c (Bld) [Mass fraction] 6.0 % Normal 4.5-6.2 [facility] Comment on above: Performed By: #### A 1C ####[facility] [address] [place] [address]Dr. Leonie Beckham LIPID PROFILEon 04-05-2022 CHOL-HDL RATIO NORM SEE BELOW Normal [facility] Comment on above: Result Comment: 3.3 - 4.4 LOW RISK 4.4 - 7.1 AVERAGE RISK 7.1 - 11.0 MODERATE RISK >11.0 HIGH RISK Performed By: #### T SH, LIPID, CMP, T4, FT3 ####[facility] [address] [place] [address]Dr. Leonie Beckham Cholesterol [Mass/Vol] 137 mg/dL Normal <=[address] [facility] Comment on above: Performed By: #### T SH, LIPID, CMP, T4, FT3 ####[facility] [address]fsxfclfh[address] [place] [address]Dr. Leonie Beckham Cholesterol in HDL [Mass/Vol] 40 mg/dL Normal 40-60 [facility] Comment on above: Performed By: #### T SH, LIPID, CMP, T4, FT3 ####[facility] [address] [place] [address]Dr. Leonie Beckham Cholesterol in LDL [Mass/Vol] 84.0 mg/dL Normal The [facility] Comment on above: Performed By: #### T SH, LIPID, CMP, T4, FT3 ####[facility] [address]em[address] [place] [address]Dr. Leonie Beckham Cholesterol.total/Ch olesterol in HDL [Mass ratio] 3.4 {ratio} Normal The [facility] Comment on above: Performed By: #### T SH, LIPID, CMP, T4, FT3 ####[facility] [address]axbvgbqfm44[address] [place] [address]Dr. Leonie Beckham HDL NORMAL > or = 60 mg/dl - LO W CARDIOVASCULAR RISK <40 mg/dl - HIGH CARDIOVASCULAR RISK Normal The [facility] Comment on above: Performed By: #### T SH, LIPID, CMP, T4, FT3 ####[facility] Pbqvhfwicx4[address] [place] [address]Dr. Kaleighlan Beckham LDL CALC NORMAL SEE BELOW Normal The [facility] Comment on above: Result Comment: <100 mg/dl OPTIMAL 100 - 129 mg/dl NEAR OR ABOVE OPTIMAL 130 - 159 mg/dl BORDERLINE HIGH 160 - 189 mg/dl HIGH >190 mg/dl VERY HIGH Performed By: #### T SH, LIPID, CMP, T4, FT3 ####[facility] X[address]avqmaog[address] [place] [address]Dr. Leonie Beckham Triglyceride [Mass/Vol] 65 mg/dL Normal <=150 [facility] Comment on above: Performed By: #### T SH, LIPID, CMP, T4, FT3 ####[facility] Frcrelgtdz[address] [place] [address]Dr. Leonie Beckham VLDL CALC 13.0 mg/dL Normal [facility] Comment on above: Performed By: #### T SH, LIPID, CMP, T4, FT3 ####[facility] [address]dt[address]deq[address] [place] [address]Dr. Leonie Beckham PROF 14(COMP METB)on 022 Albumin [Mass/Vol] 3.8 g/dL Normal 3.4-5.0 [facility] Comment on above: Performed By: #### T SH, LIPID, CMP, T4, FT3 ####[facility] Ongf[address]mdzpe[address] [place] [address]Dr. Leonie Beckham Albumin/Globulin [Mass ratio] 1.2 {ratio} Normal [facility] Comment on above: Performed By: #### T SH, LIPID, CMP, T4, FT3 ####[facility] [address]qrkf[address] [place] [address]Dr. Leonie Beckham ALP [Catalytic activity/Vol] 81 U/L Normal 46-116 [facility] Comment on above: Performed By: #### T SH, LIPID, CMP, T4, FT3 ####[facility] [address]os[address]cbj[address] [place] [address]Dr. Leonie Beckham ALT [Catalytic activity/Vol] 35 U/L Normal 16-63 [facility] Comment on above: Performed By: #### T SH, LIPID, CMP, T4, FT3 ####[facility] Gjbpaaamxm[address] [place] [address]Dr. Leonie Beckham Anion gap [Moles/Vol] 10.8 mmol/L Normal [facility] Comment on above: Performed By: #### T SH, LIPID, CMP, T4, FT3 ####[facility] [address]cktpuzdu[address] [place] [id number]. Leonie Beckham AST [Catalytic activity/Vol] 22 U/L Normal 15-[address] [facility] Comment on above: Performed By: #### T SH, LIPID, CMP, T4, FT3 ####[facility] Nmwxlanfqe38[address] [place] [address]Dr. Leonie Beckham Bilirubin [Mass/Vol] 1.1 mg/dL Critically high 0.2-1.[address] [facility] Comment on above: Performed By: #### T SH, LIPID, CMP, T4, FT3 ####[facility] [address]jm[address]afae[address] [place] [address]Dr. Leonie Beckham Calcium [Mass/Vol] 8.6 mg/dL Normal 8.5-10.1 The [facility] Comment on above: Performed By: #### T SH, LIPID, CMP, T4, FT3 ####[facility] [address] [place], [place] [address]Dr. Leonie Beckham Chloride [Moles/Vol] 105 mmol/L Normal 98-[address] [facility] Comment on above: Performed By: #### T SH, LIPID, CMP, T4, FT3 ####[facility] [address]fwkntozu77[address] [place] [address]Dr. Leonie Beckham CO2 [Moles/Vol] 28.2 mmol/L Normal 21.0-32.0 The [facility] Comment on above: Performed By: #### T SH, LIPID, CMP, T4, FT3 ####[facility] Hzjkbglqrc4[address] [place] [address]Dr. Leonie Beckham Creatinine [Mass/Vol] 1.33 mg/dL Critically high 0.70-1.[address] [facility] Comment on above: Performed By: #### T SH, LIPID, CMP, T4, FT3 ####[facility] [address]htnxtyilk[address] [place] [address]Dr. Leonie Beckham EGFR-AF [place]LANDER >60 Normal >=60 The [facility] Comment on above: Performed By: #### T SH, LIPID, CMP, T4, FT3 ####[facility] [address]xollk[address] [place] [address]Dr. Leonie Beckham EGFR-NON AF [place] 55 mL/min/1.73m2 Critically low >=[address] [facility] Comment on above: Performed By: #### T SH, LIPID, CMP, T4, FT3 ####[facility] [address]bpbgcz04[address] [place] [address]Dr. Leonie Beckham Globulin (S) [Mass/Vol] 3.3 g/dL Normal The [facility] Comment on above: Performed By: #### T SH, LIPID, CMP, T4, FT3 ####[facility] Qjkxyzphkl7921 [place] [address]Dr. Leonie Beckham Glucose [Mass/Vol] 94 mg/dL Normal 74-106 The [facility] Comment on above: Performed By: #### T SH, LIPID, CMP, T4, FT3 ####[facility] Cvprasfqri[address] [place] [address]Dr. Leonie Beckham Potassium [Moles/Vol] 4.0 mmol/L Normal 3.5-5.[address] [facility] Comment on above: Performed By: #### T SH, LIPID, CMP, T4, FT3 ####[facility] [address]tplyjxwod[address] [place] [address]Dr. Leonie Beckham Protein [Mass/Vol] 7.1 g/dL Normal 6.4-8.2 The [facility] Comment on above: Performed By: #### T SH, LIPID, CMP, T4, FT3 ####[facility] [address] [place], [place] [address]Dr. Leonie Beckham Sodium [Moles/Vol] 140 mmol/L Normal 136-145 The [facility] Comment on above: Performed By: #### T SH, LIPID, CMP, T4, FT3 ####[facility] [address] [place], [place] [address]Dr. Leonie Beckham Urea nitrogen [Mass/Vol] 24.0 mg/dL Critically high 7.0-18.[address] [facility] Comment on above: Performed By: #### T SH, LIPID, CMP, T4, FT3 ####[facility] [address] [place], [place] [address]Xm. Leonie Beckham Urea nitrogen/Creatinine [Mass ratio] 18.0 mg/mg Normal The [facility] Comment on above: Performed By: #### T SH, LIPID, CMP, T4, FT3 ####[facility] [address]ld[address]msjg37[address] [place], [place] [address]Ia. Leonie Beckham T4on 04-05-2022 T4 [Mass/Vol] 7.70 ug/dL Normal 4.50-12.10 The [facility] Comment on above: Performed By: #### T SH, LIPID, CMP, T4, FT3 ####[facility] [address]ymwd[address]w14[address] [place], [place] [address]Eh. Leonie Beckham TSHon 04-05-2022 TSH 3.042 uIU/mL Normal 0.358-3.740 [facility] Comment on above: Performed By: #### T SH, LIPID, CMP, T4, FT3 ####[facility] [address] [place], [place] [address]Sn. Leonie Beckham VC COMP CONSULTATIONon 03-08 VC COMP CONSULTATION Patient: TRACIE CRAIN Exam Date: 03/08/2022 : 1965 Gender:M Ordering : DR TITUS VILLEGAS . 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 The [...] 03/08/2022 a (more content not included)... Normal [facility] Ambulatory Clinical Summaryo n 12-20-2020 Ambulatory Clinical Summary {[id number] Normal [facility] Coding Summary.on 12-20-2020 Coding Summary. CODING DATE: 12/19/2020 FINAL [facility] STATUS: Home (Routine DC) PAYOR: Commercial [...] CphT Date Saved: 12/19/2020 11:58 pm Normal [facility] General Surgery Office/Clini c Noteon 12-20-2020 [...] Information BONG ADKINS, Tracie Diaz if needed [address] [place] [address]- Additional Instructions: Problem List/Past Medical [...] inactivated - Not Given Patient Refuses Normal [facility] Comment on above: Result Comment: Elec tronically Signed By: BONG ADKINS, Tracie Torrez.cely\Date and Time Signed: 12/20/20 15:58 EDT Ambulatory Clinical Summaryo n 12-09-2020 Ambulatory Clinical Summary {[id number]}CD:[id number] Normal [facility] General Surgery Office/Clini c Noteon 12-09-2020 [...] inactivated - Not Given Patient Refuses Normal [facility] Comment on above: Result Comment: Elec tronically Signed By: BONG ADKINS, Tracie R\.br\Date and Time Signed: 12/09/20 09:30 EST Provider Letter FTon 11-30 Provider Letter [facility], [address] [place] [address] Re: TRACIE CRAIN Date of : 1965 Thank you for your referral of Tracie Crain who was seen on consultation on November 29, 2020, for growth on left lower back that is changing. An excisional biopsy is planned. I have enclosed my consultation notes for your review. I will be happy to follow Tracie. Sincerely, Tracie Tate MD General Surgery Normal [facility] Ambulatory Clinical Summaryo n 11-29-2020 Ambulatory Clinical Summary {[id number]}CD:[id number] Normal [facility] Physician Referralon 021 Physician Referral [id number]#1.0 0CD:[id number] Normal [facility] Operative Reporton 9 Operative Report MR#: [id number] S [facility] Pt. Name: Tracie Crain Room #: [...] form. The patient was brought to the section laborer and transesophageal echocardiogram was performed under [...] Reyna MD Date Trans: 05/12/2019 01:23 P/tylero DN_[id number] cc: Titus Villegas M.D. [address] [address] Timbo Black MD [address] [facility]. [facility] [address] Normal The [facility] BASIC METABOLIC PANELon 07-0 Calcium [Mass/Vol] 9.4 mg/dL Normal 8.6-10.3 [facility] Comment on above: Performed By: #### 0 0121, 86537, 56565, 29283, 52940 #### [facility] [address] [facility]. [address] Chloride [Moles/Vol] 99 mmol/L Normal 98-107 The [facility] Comment on above: Performed By: #### 0 0121, 92698, 56958, 82096, 42637 #### [facility] [address] [place] [address], [place] CO2 [Moles/Vol] 31 mmol/L Normal 21-31 [facility] Comment on above: Performed By: #### 0 0121, 04711, 75150, 25925, 39417 #### [facility] [address] [place] [address], [place] Creatinine [Mass/Vol] 1.22 mg/dL Normal 0.70-1.30 The [facility] Comment on above: Performed By: #### 0 0121, 34027, 86972, 63450, 70029 #### [facility] [address] [place] [address], [place] GFR/1.73 sq M predicted among blacks MDRD (S/P/Bld) [Vol rate/Area] mL/min/{1.73_m2} Normal >60 The [facility] Comment on above: Performed By: #### 0 0121, 30824, 15242, 06537, 45112 #### [facility] [address] [place] [address], [place] GFR/1.73 sq M predicted among non-blacks MDRD (S/P/Bld) [Vol rate/Area] mL/min/{1.73_m2} Normal >60 The [facility] Comment on above: Performed By: #### 0 0121, 35686, 64057, 45946, 09446 #### [facility] [address] [place] [address], [place] Glucose [Mass/Vol] 126 mg/dL High 70-100 [facility] Comment on above: Performed By: #### 0 0121, 29792, 09971, 40856, 07279 #### [facility] [address] [place] [address], [place] Potassium [Moles/Vol] 3.8 mmol/L Normal 3.5-5.1 The [facility] Comment on above: Performed By: #### 0 0121, 66294, 47431, 25229, 21507 #### [facility] [address] [place] [address], [facility] Sodium [Moles/Vol] 139 mmol/L Normal 136-145 [facility] Comment on above: Performed By: #### 0 0121, 23772, 13393, 50727, 84316 #### [facility] [address] Urea nitrogen [Mass/Vol] 15 mg/dL Normal 7-25 [facility] Comment on above: Performed By: #### 0 0121, 06745, 01934, 54063, 15951 #### [facility] [address] BNP (B-TYPE NATRIURETIC PEPT PACHECO)on 04-07-2019 Natriuretic peptide B (Bld) [Mass/Vol] 502 pg/mL High 0-100 [facility] Comment on above: Result Comment: Give n the appropriate clinical setting a BNP result of >100 pg/mL indicates congestive heart failure. Performed By: #### 0 0121, 53333, 80815, 96687, 67262 #### [facility] [address] CBC W/DIFFon 04-07-2019 ABS BASOPHILS 0.1 10*3/uL Normal 0.0-0.2 [facility] Comment on above: Performed By: #### 0 0121, 50664, 25605, 53783, 68553 #### [facility] [address] ABS IMM GRANS 0.0 10*3/uL Normal 0.0-0.2 [facility] Comment on above: Performed By: #### 0 0121, 50621, 62589, 23188, 22903 #### [facility] 3000 [place] [address], [facility] ABS NEUTROPHILS 5.1 10*3/uL Normal 1.6-7.6 [facility] Comment on above: Performed By: #### 0 0121, 33207, 24830, 93865, 75654 #### [facility] [address] [place] [address], [facility] Basophils/100 WBC (Bld) 1.5 % High 0.0-1.0 The [facility] Comment on above: Performed By: #### 0 0121, 81183, 67398, 29884, 24379 #### [facility] [address] [facility] [place] [address], [facility] Eosinophils (Bld) [#/Vol] 0.3 10*3/uL Normal 0.0-0.5 [facility] Comment on above: Performed By: #### 0 0121, 58862, 76192, 60928, 68183 #### [facility] [address] [place] [address], [facility] Eosinophils/100 WBC (Bld) 3.7 % Normal 0.0-6.0 The [facility] Comment on above: Performed By: #### 0 0121, 96377, 56582, 16576, 87233 #### [facility] [address] [facility] [place] [address], [facility] Erythrocyte distribution width (RBC) [Ratio] 13.2 % Normal 11.5-15.0 The [facility] Comment on above: Performed By: #### 0 0121, 38283, 32368, 24014, 19208 #### [facility] [address] [facility] [place] [address], [facility] Hematocrit (Bld) [Volume fraction] 39.2 % Normal 39.0-50.0 The [facility] Comment on above: Performed By: #### 0 0121, 49129, 13765, 26162, 32571 #### [facility] [address] Hemoglobin (Bld) [Mass/Vol] 12.4 g/dL Low 13.0-17.0 [facility] Comment on above: Performed By: #### 0 0121, 13743, 34455, 35684, 97024 #### [facility] [address] [facility] [place] [address], [facility] IMMATURE GRANS 0.4 % Normal 0.0-1.0 [facility] Comment on above: Performed By: #### 0 0121, 51559, 75642, 51001, 15580 #### [facility] [address] Lymphocytes (Bld) [#/Vol] 1.7 10*3/uL Normal 1.2-4.0 [facility] Comment on above: Performed By: #### 0 0121, 00222, 81954, 10950, 89738 #### [facility] [address] Lymphocytes/100 WBC (Bld) 21.2 % Normal 20.0-45.0 [facility] Comment on above: Performed By: #### 0 0121, 40099, 16819, 88090, 68417 #### [facility] [address] MCH (RBC) [Entitic mass] 28.8 pg Normal 27.0-33.0 [facility] Comment on above: Performed By: #### 0 0121, 93083, 99142, 07476, 95635 #### [facility] [address] [place] [address], [facility] MCHC (RBC) [Mass/Vol] 31.6 g/dL Low 32.0-35.0 [facility] Comment on above: Performed By: #### 0 0121, 27424, 90320, 77842, 33705 #### [facility] [address] [facility] [place] [address], [facility] MCV (RBC) [Entitic vol] 91.0 fL Normal 82.0-98.0 [facility] Comment on above: Performed By: #### 0 0121, 71302, 93499, 90448, 80568 #### [facility] [address] [facility] [place] [address], [facility] Monocytes (Bld) [#/Vol] 0.9 10*3/uL Normal 0.1-1.0 [facility] Comment on above: Performed By: #### 0 0121, 98961, 03736, 64323, 59705 #### [facility] [address] [facility] [place] [address], [facility] MONOS 10.6 % Normal 5.0-12.0 [facility] Comment on above: Performed By: #### 0 0121, 40095, 21555, 79176, 64752 #### [facility] [address] Neutrophils/100 WBC (Bld) 62.6 % Normal 40.0-72.0 [facility] Comment on above: Performed By: #### 0 0121, 71676, 78022, 40104, 38351 #### [facility] [address] [facility] [place] [address], [facility] Nucleated RBC/100 WBC (Bld) [Ratio] 0 % Normal 0-0 [facility] Comment on above: Performed By: #### 0 0121, 24120, 09482, 54204, 53910 #### [facility] [address] [facility] [place] [address], [facility] PLAT CNT 520 10*3/uL High 150-400 [facility] Comment on above: Performed By: #### 0 0121, 18103, 91121, 14930, 09502 #### [facility] [address] [facility] [place] [address], [facility] RBC (Bld) [#/Vol] 4.31 10*6/uL Normal 4.20-5.70 The [facility] Comment on above: Performed By: #### 0 0121, 30570, 45576, 46892, 86471 #### [facility] [address] [place] [address], [facility] WBC (Bld) [#/Vol] 8.20 10*3/uL Normal 4.00-10.60 The [facility] Comment on above: Performed By: #### 0 0121, 20918, 59207, 50090, 93796 #### [facility] [address] [place] [address], [facility] HEMOGLOBINon 04-07-2019 Hemoglobin (Bld) [Mass/Vol] CANCELED Normal 13.0-17.0 [facility] Comment on above: Result Comment: The released value 12.3 was canceled by OCREEGER on 04/07/2019 12:48 Performed By: #### 0 0121, 27613, 90260, 55655, 65724 #### [facility] [address] [place] [address], [facility] BASIC METABOLIC PANELon 06-2 Calcium [Mass/Vol] 9.0 mg/dL Normal 8.6-10.3 The [facility] Comment on above: Order Comment: No: D o not add to previous draw Performed By: #### 0 0121, 87870, 72252, 00020, 13684 #### [facility] [address] [place] [address], [facility] Chloride [Moles/Vol] 98 mmol/L Normal 98-107 [facility] Comment on above: Order Comment: No: D o not add to previous draw Performed By: #### 0 0121, 40605, 12198, 70924, 75478 #### [facility] [address] [place] [address], [facility] CO2 [Moles/Vol] 29 mmol/L Normal 21-31 [facility] Comment on above: Order Comment: No: D o not add to previous draw Performed By: #### 0 0121, 91601, 26265, 03798, 18617 #### [facility] [address] [place] [address], [place] Creatinine [Mass/Vol] 1.00 mg/dL Normal 0.70-1.30 [facility] Comment on above: Order Comment: No: D o not add to previous draw Performed By: #### 0 0121, 02913, 04711, 96012, 39871 #### [facility] [address] [place] [address], [place] GFR/1.73 sq M predicted among blacks MDRD (S/P/Bld) [Vol rate/Area] mL/min/{1.73_m2} Normal >60 [facility] Comment on above: Order Comment: No: D o not add to previous draw Performed By: #### 0 0121, 02583, 13547, 33051, 49762 #### [facility] [address] [place] [address], [place] GFR/1.73 sq M predicted among non-blacks MDRD (S/P/Bld) [Vol rate/Area] mL/min/{1.73_m2} Normal >60 [facility] Comment on above: Order Comment: No: D o not add to previous draw Performed By: #### 0 0121, 15341, 60700, 78830, 87492 #### [facility] [address] [place] [address], [place] Glucose [Mass/Vol] 96 mg/dL Normal 70-100 [facility] Comment on above: Order Comment: No: D o not add to previous draw Performed By: #### 0 0121, 56094, 42712, 15617, 67855 #### [facility] [address] [place] [address], [place] Potassium [Moles/Vol] 3.1 mmol/L Low 3.5-5.1 [facility] Comment on above: Order Comment: No: D o not add to previous draw Performed By: #### 0 0121, 77098, 57199, 72351, 54565 #### [facility] [address] [place] [address], [place] Sodium [Moles/Vol] 138 mmol/L Normal 136-145 The [facility] Comment on above: Order Comment: No: D o not add to previous draw Performed By: #### 0 0121, 69676, 10263, 24998, 15853 #### [facility] [address] [place] [address], [facility] Urea nitrogen [Mass/Vol] 24 mg/dL Normal 7-25 [facility] Comment on above: Order Comment: No: D o not add to previous draw Performed By: #### 0 0121, 84025, 87198, 76312, 01592 #### [facility] [address] [place] [address], [facility] CBC COMPLETE BLOOD COUNTon 0 - Erythrocyte distribution width (RBC) [Ratio] 13.6 % Normal 11.5-15.0 [facility] Comment on above: Order Comment: No: D o not add to previous draw Performed By: #### 0 0121, 91369, 50014, 26172, 06848 #### [facility] [address] [place] [address], [place] Hematocrit (Bld) [Volume fraction] 34.7 % Low 39.0-50.0 [facility] Comment on above: Order Comment: No: D o not add to previous draw Performed By: #### 0 0121, 95256, 05196, 01610, 61421 #### [facility] [address] [place] [address], [place] Hemoglobin (Bld) [Mass/Vol] 11.3 g/dL Low 13.0-17.0 [facility] Comment on above: Order Comment: No: D o not add to previous draw Performed By: #### 0 0121, 91599, 42491, 65000, 82304 #### [facility] [address] [place] [address], [facility] MCH (RBC) [Entitic mass] 28.8 pg Normal 27.0-33.0 [facility] [facility] Comment on above: Order Comment: No: D o not add to previous draw Performed By: #### 0 0121, 59852, 42935, 16693, 88586 #### [facility] [address] [place] [address], [facility] MCHC (RBC) [Mass/Vol] 32.6 g/dL Normal 32.0-35.0 [facility] Comment on above: Order Comment: No: D o not add to previous draw Performed By: #### 0 0121, 24035, 88246, 43867, 34328 #### [facility] [address] [facility] [place] [address], [facility] MCV (RBC) [Entitic vol] 88.5 fL Normal 82.0-98.0 [facility] Comment on above: Order Comment: No: D o not add to previous draw Performed By: #### 0 0121, 22415, 75834, 74621, 38993 #### [facility] [address] [place] [address], [facility] Nucleated RBC/100 WBC (Bld) [Ratio] 0 % Normal 0-0 [facility] Comment on above: Order Comment: No: D o not add to previous draw Performed By: #### 0 0121, 50525, 07467, 72384, 35091 #### [facility] [address] [facility] [place] [place] [id number], [facility] PLAT CNT 205 10*3/uL Normal 150-400 [facility] Comment on above: Order Comment: No: D o not add to previous draw Performed By: #### 0 0121, 14523, 17947, 46724, 59271 #### [facility] [address] [place] [address], [facility] RBC (Bld) [#/Vol] 3.92 10*6/uL Low 4.20-5.70 [facility] Comment on above: Order Comment: No: D o not add to previous draw Performed By: #### 0 0121, 32091, 36304, 88145, 68135 #### [facility] [address] [place] [address], [place] WBC (Bld) [#/Vol] 11.83 10*3/uL High 4.00-10.60 [facility] Comment on above: Order Comment: No: D o not add to previous draw Performed By: #### 0 0121, 49399, 46620, 34360, 48803 #### [facility] [address] [place] [address], [facility] MAGNESIUM BLOODon 03-27-2019 Magnesium [Mass/Vol] 2.3 mg/dL Normal 1.9-2.7 [facility] Comment on above: Order Comment: No: D o not add to previous draw Performed By: #### 0 0121, 64690, 29285, 57674, 52702 #### [facility] [address] [place] [address], [facility] POC GLUCOSE LABon 03-27-2019 Glucose [Mass/Vol] 115 mg/dL High 70-100 [facility] Comment on above: Performed By: #### 0 0121, 52285, 74902, 87739, 70662 #### [facility] [address] [place] [address], [place] Glucose [Mass/Vol] 96 mg/dL Normal 70-100 [facility] Comment on above: Performed By: #### 0 0121, 90720, 66236, 67936, 55330 #### [facility] [place] [address], [facility] PORTABLE CHEST 1 VIEWon 03-01 PORTABLE CHEST 1 VIEW [facility] Department of Radiology [address] [place] [id number] ======== Patient Name: TRACIE CRAIN : 1965 Sex: M Age: Race: NA Pt. Location: [id number] Patient Status: I Ordered Date: 03/27/2019 5:00:00 [...] by:Anai Alvarado on 03/27/2019 6:20 AM EDT. IDivya, have reviewed the images and report and concur with these findings. Electronically signed by:Divya Collins. Transcribed by: [email or web address], User Resident: ANAI ALVARADO Electronically Signed by: DIVYA COLLINS @ 03/27/2019 09:07 AM I personally read this/these film(s) with this resident Normal [facility] Comment on above: Order Comment: No: D o not add to previous draw BASIC METABOLIC PANELon - Calcium [Mass/Vol] 9.2 mg/dL Normal 8.6-10.3 [facility] Comment on above: Order Comment: No: D o not add to previous draw Performed By: #### 0 0121, 45740, 01820, 69554, 85103 #### [facility] [address] [place] [address], [place] Chloride [Moles/Vol] 101 mmol/L Normal 98-107 [facility] Comment on above: Order Comment: No: D o not add to previous draw Performed By: #### 0 0121, 19439, 00102, 68703, 58848 #### [facility] [address] [place] [address], [place] CO2 [Moles/Vol] 27 mmol/L Normal 21-31 [facility] Comment on above: Order Comment: No: D o not add to previous draw Performed By: #### 0 0121, 37378, 18332, 28004, 87744 #### [facility] [address] [place] [address], [place] Creatinine [Mass/Vol] 0.93 mg/dL Normal 0.70-1.30 [facility] Comment on above: Order Comment: No: D o not add to previous draw Performed By: #### 0 0121, 53778, 66496, 90101, 36327 #### [facility] [address] [place] [address], [place] GFR/1.73 sq M predicted among blacks MDRD (S/P/Bld) [Vol rate/Area] mL/min/{1.73_m2} Normal >60 [facility] Comment on above: Order Comment: No: D o not add to previous draw Performed By: #### 0 0121, 25676, 05304, 97100, 59831 #### [facility] [address] [place] [address], [place] GFR/1.73 sq M predicted among non-blacks MDRD (S/P/Bld) [Vol rate/Area] mL/min/{1.73_m2} Normal >60 [facility] Comment on above: Order Comment: No: D o not add to previous draw Performed By: #### 0 0121, 65238, 10489, 04063, 09539 #### [facility] [address] [place] [address], [place] Glucose [Mass/Vol] 111 mg/dL High 70-100 [facility] Comment on above: Order Comment: No: D o not add to previous draw Performed By: #### 0 0121, 97962, 23245, 37087, 73840 #### [facility] [address] [place] [address], [place] Potassium [Moles/Vol] 3.9 mmol/L Normal 3.5-5.1 [facility] Comment on above: Order Comment: No: D o not add to previous draw Performed By: #### 0 0121, 69575, 88741, 03425, 40253 #### [facility] [address] [place] [address], [place] Sodium [Moles/Vol] 137 mmol/L Normal 136-145 [facility] Comment on above: Order Comment: No: D o not add to previous draw Performed By: #### 0 0121, 01124, 32589, 91840, 50618 #### [facility] [address] [place] [address], [place] Urea nitrogen [Mass/Vol] 26 mg/dL High 7-[address] [facility] Comment on above: Order Comment: No: D o not add to previous draw Performed By: #### 0 0121, 20871, 18454, 41553, 87490 #### [facility] [address] [place] [address], [facility] CBC W/DIFFon 03-26-2019 ABS BASOPHILS 0.1 10*3/uL Normal 0.0-0.2 [facility] Comment on above: Order Comment: No: D o not add to previous draw Performed By: #### 0 0121, 93736, 08700, 41623, 25396 #### [facility] [address] ABS IMM GRANS 0.5 10*3/uL High 0.0-0.2 [facility] Comment on above: Order Comment: No: D o not add to previous draw Performed By: #### 0 0121, 13772, 24069, 77657, 78733 #### [facility] [address] ABS NEUTROPHILS 10.2 10*3/uL High 1.6-7.6 [facility] Comment on above: Order Comment: No: D o not add to previous draw Performed By: #### 0 0121, 91001, 41395, 50763, 76447 #### [facility] [address] [place] [address], [facility] Basophils/100 WBC (Bld) 0.6 % Normal 0.0-1.0 [facility] Comment on above: Order Comment: No: D o not add to previous draw Performed By: #### 0 0121, 14188, 73549, 46522, 58261 #### [facility] [address] [place] [address], [facility] Eosinophils (Bld) [#/Vol] 0.4 10*3/uL Normal 0.0-0.5 [facility] Comment on above: Order Comment: No: D o not add to previous draw Performed By: #### 0 0121, 26368, 46419, 26936, 26049 #### [facility] [address] [place] [address], [facility] Eosinophils/100 WBC (Bld) 2.8 % Normal 0.0-6.0 [facility] Comment on above: Order Comment: No: D o not add to previous draw Performed By: #### 0 0121, 14988, 50128, 26150, 11326 #### [facility] [address] [place] [address], [facility] Erythrocyte distribution width (RBC) [Ratio] 13.6 % Normal 11.5-15.0 [facility] Comment on above: Order Comment: No: D o not add to previous draw Performed By: #### 0 0121, 00393, 65361, 25082, 40091 #### [facility] [address] [place] [address], [facility] Hematocrit (Bld) [Volume fraction] 34.5 % Low 39.0-50.0 [facility] Comment on above: Order Comment: No: D o not add to previous draw Performed By: #### 0 0121, 33478, 08146, 88251, 48612 #### [facility] [address] [place] [address], [facility] Hemoglobin (Bld) [Mass/Vol] 11.3 g/dL Low 13.0-17.0 [facility] Comment on above: Order Comment: No: D o not add to previous draw Performed By: #### 0 0121, 81612, 39797, 88405, 93080 #### [facility] [address] [place] [address], [facility] IMMATURE GRANS 3.5 % High 0.0-1.0 [facility] Comment on above: Order Comment: No: D o not add to previous draw Performed By: #### 0 0121, 17105, 66526, 04533, 27454 #### [facility] [address] [place] [address], [facility] Lymphocytes (Bld) [#/Vol] 1.3 10*3/uL Normal 1.2-4.0 [facility] Comment on above: Order Comment: No: D o not add to previous draw Performed By: #### 0 0121, 43571, 87533, 73902, 40672 #### [facility] [address] [place] [address], [facility] Lymphocytes/100 WBC (Bld) 9.2 % Low 20.0-45.0 [facility] Comment on above: Order Comment: No: D o not add to previous draw Performed By: #### 0 0121, 05401, 70903, 16606, 16070 #### [facility] [address] [place] [address], [facility] MCH (RBC) [Entitic mass] 28.9 pg Normal 27.0-33.0 [facility] Comment on above: Order Comment: No: D o not add to previous draw Performed By: #### 0 0121, 59579, 84434, 08323, 55032 #### [facility] [address] [place] [address], [facility] MCHC (RBC) [Mass/Vol] 32.8 g/dL Normal 32.0-35.0 [facility] Comment on above: Order Comment: No: D o not add to previous draw Performed By: #### 0 0121, 24242, 66634, 68399, 76892 #### [facility] [address] [place] [address], [facility] MCV (RBC) [Entitic vol] 88.2 fL Normal 82.0-98.0 [facility] Comment on above: Order Comment: No: D o not add to previous draw Performed By: #### 0 0121, 60649, 23174, 73099, 21323 #### [facility] [address] [place] [address], [facility] Monocytes (Bld) [#/Vol] 1.7 10*3/uL High 0.1-1.0 [facility] Comment on above: Order Comment: No: D o not add to previous draw Performed By: #### 0 0121, 01743, 33248, 33662, 85303 #### [facility] [address] [place] [address], [facility] MONOS 11.7 % Normal 5.0-12.0 [facility] Comment on above: Order Comment: No: D o not add to previous draw Performed By: #### 0 0121, 94680, 51953, 69348, 48080 #### [facility] [address] [place] [address], [facility] Neutrophils/100 WBC (Bld) 72.2 % High 40.0-72.0 [facility] Comment on above: Order Comment: No: D o not add to previous draw Performed By: #### 0 0121, 85734, 43115, 37875, 73026 #### [facility] [address] [facility] [place] [address], [facility] Nucleated RBC/100 WBC (Bld) [Ratio] 0 % Normal 0-0 [facility] Comment on above: Order Comment: No: D o not add to previous draw Performed By: #### 0 0121, 38941, 37155, 87227, 52967 #### [facility] [address] [place] [address], [place] PLAT CNT 215 10*3/uL Normal 150-400 [facility] Comment on above: Order Comment: No: D o not add to previous draw Performed By: #### 0 0121, 33109, 29843, 98382, 80004 #### [facility] [address] [place] [address], [place] RBC (Bld) [#/Vol] 3.91 10*6/uL Low 4.20-5.70 [facility] Comment on above: Order Comment: No: D o not add to previous draw Performed By: #### 0 0121, 51018, 09401, 19329, 33353 #### [facility] [address] [place] [address], [place] WBC (Bld) [#/Vol] 14.17 10*3/uL High 4.00-10.60 [facility] Comment on above: Order Comment: No: D o not add to previous draw Performed By: #### 0 0121, 16446, 76251, 52511, 87769 #### [facility] [address] [place] [address], [place] POC GLUCOSE LABon 03-26-2019 Glucose [Mass/Vol] 129 mg/dL High 70-100 [facility] Comment on above: Performed By: #### 0 0121, 00134, 10843, 81929, 64321 #### [facility] [address] [place] [address], [place] Glucose [Mass/Vol] 129 mg/dL High 70-100 [facility] Comment on above: Performed By: #### 0 0121, 32298, 29696, 66077, 05540 #### [facility] [address] [place] [address], [place] Glucose [Mass/Vol] 130 mg/dL High 70-100 [facility] Comment on above: Performed By: #### 0 0121, 24359, 11644, 36489, 17457 #### [facility] [address] [place] [address], [place] Glucose [Mass/Vol] 91 mg/dL Normal 70-100 [facility] Comment on above: Performed By: #### 0 0121, 26592, 26255, 36294, 51962 #### [facility] [address] PORTABLE CHEST 1 VIEWon 03-01 PORTABLE CHEST 1 VIEW [facility] Department of Radiology [address] [place] [phone] ======== Patient Name: TRACIE CRAIN : 1965 Sex: M Age: Race: NA Pt. Location: [id number] Patient Status: I Ordered Date: 03/26/2019 7:00:00 [...] findings. Electronically signed by:Divya Collins. Transcribed by: [email or web address], User Resident: KAREEM LIAO Electronically Signed by: DIVYA COLLINS @ 03/26/2019 10:03 AM I personally read this/these film(s) with this resident Normal [facility] Comment on above: Order Comment: No: D o not add to previous draw BASIC METABOLIC PANELon 03-01 Calcium [Mass/Vol] 9.1 mg/dL Normal 8.6-10.3 [facility] Comment on above: Order Comment: << On admission If not done in ED>> No: Do not add to previous draw Performed By: #### 0 0121, 19042, 90963, 14609, 29207 #### [facility] [address] [place] [address], [facility] Chloride [Moles/Vol] 98 mmol/L Normal 98-107 [facility] Comment on above: Order Comment: << On admission If not done in ED>> No: Do not add to previous draw Performed By: #### 0 0121, 21856, 46912, 28137, 09722 #### [facility] [address] [place] [address], [facility] CO2 [Moles/Vol] 29 mmol/L Normal 21-31 [facility] Comment on above: Order Comment: << On admission If not done in ED>> No: Do not add to previous draw Performed By: #### 0 0121, 70694, 74348, 19542, 98061 #### [facility] [address] [place] [id number], [facility] Creatinine [Mass/Vol] 1.01 mg/dL Normal 0.70-1.30 [facility] Comment on above: Order Comment: << On admission If not done in ED>> No: Do not add to previous draw Performed By: #### 0 0121, 44994, 22207, 50852, 08688 #### [facility] [address] [place] [address], [place] GFR/1.73 sq M predicted among blacks MDRD (S/P/Bld) [Vol rate/Area] mL/min/{1.73_m2} Normal >60 [facility] Comment on above: Order Comment: << On admission If not done in ED>> No: Do not add to previous draw Performed By: #### 0 0121, 98116, 26219, 26259, 61630 #### [facility] [address] [place] [address], [facility] GFR/1.73 sq M predicted among non-blacks MDRD (S/P/Bld) [Vol rate/Area] mL/min/{1.73_m2} Normal >60 [facility] Comment on above: Order Comment: << On admission If not done in ED>> No: Do not add to previous draw Performed By: #### 0 0121, 04712, 75935, 26102, 36450 #### [facility] [address] [place] [address], [facility] Glucose [Mass/Vol] 123 mg/dL High 70-100 [facility] Comment on above: Order Comment: << On admission If not done in ED>> No: Do not add to previous draw Performed By: #### 0 0121, 78557, 75984, 89149, 51106 #### [facility] [address] [place] [address], [place] Potassium [Moles/Vol] 3.9 mmol/L Normal 3.5-5.1 [facility] Comment on above: Order Comment: << On admission If not done in ED>> No: Do not add to previous draw Performed By: #### 0 0121, 84398, 18336, 57170, 34310 #### [facility] [address] Sodium [Moles/Vol] 134 mmol/L Low 136-145 [facility] Comment on above: Order Comment: << On admission If not done in ED>> No: Do not add to previous draw Performed By: #### 0 0121, 28860, 05254, 92381, 96956 #### [facility] [address] Urea nitrogen [Mass/Vol] 29 mg/dL High 7-25 [facility] Comment on above: Order Comment: << On admission If not done in ED>> No: Do not add to previous draw Performed By: #### 0 0121, 28429, 48400, 83244, 21083 #### [facility] [address] CBC W/DIFFon 03-25-2019 ABS BASOPHILS 0.1 10*3/uL Normal 0.0-0.2 [facility] Comment on above: Order Comment: << On admission If not done in ED>> No: Do not add to previous draw Performed By: #### 0 0121, 78288, 26605, 57851, 96272 #### [facility] [address] ABS NEUTROPHILS 11.2 10*3/uL High 1.6-7.6 [facility] Comment on above: Order Comment: << On admission If not done in ED>> No: Do not add to previous draw Performed By: #### 0 0121, 15733, 02814, 87123, 79375 #### [facility] [address] [place] [address], [facility] Basophils/100 WBC (Bld) 0.9 % Normal 0.0-1.0 [facility] Comment on above: Order Comment: << On admission If not done in ED>> No: Do not add to previous draw Performed By: #### 0 0121, 21750, 37301, 11790, 94072 #### [facility] [address] [place] [address], [facility] Eosinophils (Bld) [#/Vol] 0.1 10*3/uL Normal 0.0-0.5 [facility] Comment on above: Order Comment: << On admission If not done in ED>> No: Do not add to previous draw Performed By: #### 0 0121, 93829, 19759, 16648, 65132 #### [facility] [address] [place] [address], [facility] Eosinophils/100 WBC (Bld) 0.9 % Normal 0.0-6.0 [facility] Comment on above: Order Comment: << On admission If not done in ED>> No: Do not add to previous draw Performed By: #### 0 0121, 35437, 95019, 75500, 21274 #### [facility] [address] Erythrocyte distribution width (RBC) [Ratio] 13.4 % Normal 11.5-15.0 [facility] Comment on above: Order Comment: << On admission If not done in ED>> No: Do not add to previous draw Performed By: #### 0 0121, 97153, 78084, 70483, 70736 #### [facility] [address] GIANT PLATELETS Present Normal [facility] Comment on above: Order Comment: << On admission If not done in ED>> No: Do not add to previous draw Performed By: #### 0 0121, 69156, 85555, 04254, 72774 #### [facility] [address] [place] [address], [facility] Hematocrit (Bld) [Volume fraction] 35.4 % Low 39.0-50.0 [facility] Comment on above: Order Comment: << On admission If not done in ED>> No: Do not add to previous draw Performed By: #### 0 0121, 20293, 88454, 57723, 39189 #### [facility] [address] [place] [address], [facility] Hemoglobin (Bld) [Mass/Vol] 11.1 g/dL Low 13.0-17.0 [facility] Comment on above: Order Comment: << On admission If not done in ED>> No: Do not add to previous draw Performed By: #### 0 0121, 32175, 78312, 33711, 85451 #### [facility] [address] [place] [address], [facility] Lymphocytes (Bld) [#/Vol] 0.8 10*3/uL Low 1.2-4.0 [facility] Comment on above: Order Comment: << On admission If not done in ED>> No: Do not add to previous draw Performed By: #### 0 0121, 68223, 26033, 31634, 71235 #### [facility] [address] [facility] [place] [address], [facility] Lymphocytes/100 WBC (Bld) 6.3 % Low 20.0-45.0 [facility] Comment on above: Order Comment: << On admission If not done in ED>> No: Do not add to previous draw Performed By: #### 0 0121, 34190, 87362, 12935, 98216 #### [facility] [address] [facility] [place] [address], [facility] MCH (RBC) [Entitic mass] 28.8 pg Normal 27.0-33.0 [facility] Comment on above: Order Comment: << On admission If not done in ED>> No: Do not add to previous draw Performed By: #### 0 0121, 52935, 20686, 17594, 21068 #### [facility] [address] [place] [address], [facility] MCHC (RBC) [Mass/Vol] 31.4 g/dL Low 32.0-35.0 [facility] Comment on above: Order Comment: << On admission If not done in ED>> No: Do not add to previous draw Performed By: #### 0 0121, 96663, 79131, 86605, 74363 #### [facility] [address] [place] [address], [facility] MCV (RBC) [Entitic vol] 91.9 fL Normal 82.0-98.0 [facility] Comment on above: Order Comment: << On admission If not done in ED>> No: Do not add to previous draw Performed By: #### 0 0121, 74877, 51965, 98071, 19076 #### [facility] [address] [place] [address], [facility] Monocytes (Bld) [#/Vol] 0.7 10*3/uL Normal 0.1-1.0 [facility] Comment on above: Order Comment: << On admission If not done in ED>> No: Do not add to previous draw Performed By: #### 0 0121, 15225, 34516, 75354, 07255 #### [facility] [address] [place] [address], [facility] MONOS 5.4 % Normal 5.0-12.0 [facility] Comment on above: Order Comment: << On admission If not done in ED>> No: Do not add to previous draw Performed By: #### 0 0121, 40070, 75783, 98850, 11810 #### [facility] [address] [place] [address], [facility] MYELOS 0.9 % High .0-.0 [facility] Comment on above: Order Comment: << On admission If not done in ED>> No: Do not add to previous draw Performed By: #### 0 0121, 04340, 13071, 86001, 55708 #### [facility] [address] [place] [address], [facility] Neutrophils/100 WBC (Bld) 85.6 % High 40.0-72.0 [facility] Comment on above: Order Comment: << On admission If not done in ED>> No: Do not add to previous draw Performed By: #### 0 0121, 39876, 65007, 92308, 79157 #### [facility] [address] [place] [address], [facility] Nucleated RBC/100 WBC (Bld) [Ratio] 0 % Normal 0-0 [facility] Comment on above: Order Comment: << On admission If not done in ED>> No: Do not add to previous draw Performed By: #### 0 0121, 85084, 92054, 74848, 64170 #### [facility] [address] [place] [address], [facility] PLAT CNT 196 10*3/uL Normal 150-400 [facility] Comment on above: Order Comment: << On admission If not done in ED>> No: Do not add to previous draw Performed By: #### 0 0121, 65758, 88422, 37978, 61444 #### [facility] [address] [place] [address], [facility] RBC (Bld) [#/Vol] 3.85 10*6/uL Low 4.20-5.70 [facility] Comment on above: Order Comment: << On admission If not done in ED>> No: Do not add to previous draw Performed By: #### 0 0121, 58947, 06813, 43646, 95376 #### [facility] [address] [place] [address], [place] WBC (Bld) [#/Vol] 13.09 10*3/uL High 4.00-10.60 [facility] Comment on above: Order Comment: << On admission If not done in ED>> No: Do not add to previous draw Performed By: #### 0 0121, 26247, 42790, 87632, 06380 #### [facility] [address] [place] [address], [place] MAGNESIUM BLOODon 03-25-2019 Magnesium [Mass/Vol] 2.3 mg/dL Normal 1.9-2.7 [facility] Comment on above: Order Comment: << On admission If not done in ED>> No: Do not add to previous draw Performed By: #### 0 0121, 57222, 91259, 63515, 96816 #### [facility] [address] [place] [address], [place] PHOSPHORUS BLOODon 9 Phosphate [Mass/Vol] 2.6 mg/dL Normal 2.5-5.0 [facility] Comment on above: Order Comment: << On admission If not done in ED>> No: Do not add to previous draw Performed By: #### 0 0121, 62470, 20508, 50324, 11890 #### [facility] [address] [place] [address], [place] POC GLUCOSE LABon 03-25-2019 Glucose [Mass/Vol] 103 mg/dL High 70-100 [facility] Comment on above: Performed By: #### 0 0121, 08746, 30367, 00776, 10915 #### [facility] [address] [place] [address], [place] Glucose [Mass/Vol] 113 mg/dL High 70-100 [facility] Comment on above: Performed By: #### 0 0121, 15613, 85246, 75679, 44074 #### [facility] [address] [place] [address], [place] Glucose [Mass/Vol] 120 mg/dL High 70-100 [facility] Comment on above: Performed By: #### 0 0121, 55274, 77725, 28401, 72963 #### [facility] [address] [place] [address], [place] Glucose [Mass/Vol] 110 mg/dL High 70-100 [facility] Comment on above: Performed By: #### 0 0121, 81949, 00189, 49831, 93197 #### [address] PORTABLE CHEST 1 VIEWon 03-01 PORTABLE CHEST 1 VIEW [facility] Department of Radiology [address] [place] [id number] ======== Patient Name: TRACIE CRAIN : 1965 Sex: M Age: Race: NA Pt. Location: [id number] Patient Status: I Ordered Date: 03/25/2019 7:00:00 [...] Worsening left lower lobe/retrocardiac airspace disease. Approved by:aKreem Liao on 03/25/2019 9:08 AM EDT. I, Divay Collins, have reviewed the images and report and concur with these findings. Electronically signed by:Divya Collins. Transcribed by: [email or web address], User Resident: KAREEM LIAO Electronically Signed by: DIVYA COLLINS @ 03/25/2019 11:10 AM I personally read this/these film(s) with this resident Normal [facility] Comment on above: Order Comment: No: D o not add to previous draw BASIC METABOLIC PANELon 03-01 Calcium [Mass/Vol] 9.0 mg/dL Normal 8.6-10.3 [facility] Comment on above: Order Comment: << On admission If not done in ED>> No: Do not add to previous draw Performed By: #### 0 0121, 23927, 18263, 27081, 71137 #### [facility] [address] [place] [address], [facility] Chloride [Moles/Vol] 96 mmol/L Low 98-107 [facility] Comment on above: Order Comment: << On admission If not done in ED>> No: Do not add to previous draw Performed By: #### 0 0121, 65153, 92856, 61499, 66945 #### [facility] [address] [place] [address], [place] CO2 [Moles/Vol] 30 mmol/L Normal 21-31 [facility] Comment on above: Order Comment: << On admission If not done in ED>> No: Do not add to previous draw Performed By: #### 0 0121, 55023, 54674, 11510, 97685 #### [facility] [address] [place] [address], [place] Creatinine [Mass/Vol] 0.89 mg/dL Normal 0.70-1.30 [facility] [place] [facility] Comment on above: Order Comment: << On admission If not done in ED>> No: Do not add to previous draw Performed By: #### 0 0121, 88212, 13917, 35493, 19162 #### [facility] [address] [place] [address], [facility] GFR/1.73 sq M predicted among blacks MDRD (S/P/Bld) [Vol rate/Area] mL/min/{1.73_m2} Normal >60 [facility] Comment on above: Order Comment: << On admission If not done in ED>> No: Do not add to previous draw Performed By: #### 0 0121, 76886, 46323, 76691, 31352 #### [facility] [address] [place] [address], [facility] GFR/1.73 sq M predicted among non-blacks MDRD (S/P/Bld) [Vol rate/Area] mL/min/{1.73_m2} Normal >60 [facility] Comment on above: Order Comment: << On admission If not done in ED>> No: Do not add to previous draw Performed By: #### 0 0121, 97884, 43992, 25791, 38300 #### [facility] [address] [place] [address], [facility] Glucose [Mass/Vol] 98 mg/dL Normal 70-100 [facility] Comment on above: Order Comment: << On admission If not done in ED>> No: Do not add to previous draw Performed By: #### 0 0121, 73458, 98264, 07680, 56836 #### [facility] [address] [place] [address], [facility] Potassium [Moles/Vol] 3.2 mmol/L Low 3.5-5.1 [facility] Comment on above: Order Comment: << On admission If not done in ED>> No: Do not add to previous draw Performed By: #### 0 0121, 80777, 59524, 60324, 67941 #### [facility] [address] Sodium [Moles/Vol] 135 mmol/L Low 136-145 [facility] Comment on above: Order Comment: << On admission If not done in ED>> No: Do not add to previous draw Performed By: #### 0 0121, 61575, 25389, 16905, 38508 #### [facility] [address] Urea nitrogen [Mass/Vol] 29 mg/dL High 7-25 [facility] Comment on above: Order Comment: << On admission If not done in ED>> No: Do not add to previous draw Performed By: #### 0 0121, 18969, 47499, 09051, 99745 #### [facility] [address] CBC W/DIFFon 03-24-2019 ABS BASOPHILS 0.1 10*3/uL Normal 0.0-0.2 [facility] Comment on above: Order Comment: << On admission If not done in ED>> No: Do not add to previous draw Performed By: #### 0 0121, 92607, 74372, 43923, 51546 #### [facility] [address] ABS IMM GRANS 0.1 10*3/uL Normal 0.0-0.2 [facility] Comment on above: Order Comment: << On admission If not done in ED>> No: Do not add to previous draw Performed By: #### 0 0121, 02201, 70023, 23459, 15177 #### [facility] [address] ABS NEUTROPHILS 6.9 10*3/uL Normal 1.6-7.6 [facility] Comment on above: Order Comment: << On admission If not done in ED>> No: Do not add to previous draw Performed By: #### 0 0121, 32519, 44734, 19358, 71709 #### [facility] [address] [place] [address], [facility] Basophils/100 WBC (Bld) 0.8 % Normal 0.0-1.0 [facility] Comment on above: Order Comment: << On admission If not done in ED>> No: Do not add to previous draw Performed By: #### 0 0121, 47114, 02347, 03692, 66155 #### [facility] [address] [place] [address], [facility] Eosinophils (Bld) [#/Vol] 0.3 10*3/uL Normal 0.0-0.5 [facility] Comment on above: Order Comment: << On admission If not done in ED>> No: Do not add to previous draw Performed By: #### 0 0121, 00242, 85327, 74360, 94599 #### [facility] [address] [place] [address], [facility] Eosinophils/100 WBC (Bld) 2.8 % Normal 0.0-6.0 [facility] Comment on above: Order Comment: << On admission If not done in ED>> No: Do not add to previous draw Performed By: #### 0 0121, 18341, 10880, 97857, 82585 #### [facility] [address] [place] [address], [place] Erythrocyte distribution width (RBC) [Ratio] 13.5 % Normal 11.5-15.0 [facility] Comment on above: Order Comment: << On admission If not done in ED>> No: Do not add to previous draw Performed By: #### 0 0121, 07695, 48538, 70864, 24254 #### [facility] [address] [place] [address], [place] Hematocrit (Bld) [Volume fraction] 33.0 % Low 39.0-50.0 [facility] Comment on above: Order Comment: << On admission If not done in ED>> No: Do not add to previous draw Performed By: #### 0 0121, 29379, 07725, 69062, 90545 #### [facility] [address] [place] [address], [facility] Hemoglobin (Bld) [Mass/Vol] 10.4 g/dL Low 13.0-17.0 [facility] Comment on above: Order Comment: << On admission If not done in ED>> No: Do not add to previous draw Performed By: #### 0 0121, 09089, 26330, 54927, 59652 #### [facility] [address] [place] [address], [facility] IMMATURE GRANS 1.2 % High 0.0-1.0 [facility] Comment on above: Order Comment: << On admission If not done in ED>> No: Do not add to previous draw Performed By: #### 0 0121, 31205, 06912, 13953, 30450 #### [facility] [address] [place] [address], [facility] Lymphocytes (Bld) [#/Vol] 1.5 10*3/uL Normal 1.2-4.0 [facility] Comment on above: Order Comment: << On admission If not done in ED>> No: Do not add to previous draw Performed By: #### 0 0121, 77257, 02281, 41449, 37078 #### [facility] [address] [place] [address], [facility] Lymphocytes/100 WBC (Bld) 14.4 % Low 20.0-45.0 [facility] Comment on above: Order Comment: << On admission If not done in ED>> No: Do not add to previous draw Performed By: #### 0 0121, 61745, 64525, 68123, 07110 #### [facility] [address] MCH (RBC) [Entitic mass] 28.8 pg Normal 27.0-33.0 [facility] Comment on above: Order Comment: << On admission If not done in ED>> No: Do not add to previous draw Performed By: #### 0 0121, 13681, 48440, 56834, 30797 #### [facility] [address] MCHC (RBC) [Mass/Vol] 31.5 g/dL Low 32.0-35.0 [facility] Comment on above: Order Comment: << On admission If not done in ED>> No: Do not add to previous draw Performed By: #### 0 0121, 06410, 81390, 39072, 74519 #### [facility] [address] MCV (RBC) [Entitic vol] 91.4 fL Normal 82.0-98.0 [facility] Comment on above: Order Comment: << On admission If not done in ED>> No: Do not add to previous draw Performed By: #### 0 0121, 73806, 28222, 12703, 61845 #### [facility] [address] Monocytes (Bld) [#/Vol] 1.3 10*3/uL High 0.1-1.0 [facility] Comment on above: Order Comment: << On admission If not done in ED>> No: Do not add to previous draw Performed By: #### 0 0121, 00553, 40906, 57937, 98047 #### [facility] [address] MONOS 13.1 % High 5.0-12.0 [facility] Comment on above: Order Comment: << On admission If not done in ED>> No: Do not add to previous draw Performed By: #### 0 0121, 88505, 34502, 66556, 11295 #### [facility] [address] [place] [address], [facility] Neutrophils/100 WBC (Bld) 67.7 % Normal 40.0-72.0 [facility] Comment on above: Order Comment: << On admission If not done in ED>> No: Do not add to previous draw Performed By: #### 0 0121, 39043, 61515, 30467, 32112 #### [facility] [address] [place] [address], [facility] Nucleated RBC/100 WBC (Bld) [Ratio] 0 % Normal 0-0 [facility] Comment on above: Order Comment: << On admission If not done in ED>> No: Do not add to previous draw Performed By: #### 0 0121, 41527, 69147, 76725, 81131 #### [facility] [address] [place] [address], [facility] PLAT CNT 166 10*3/uL Normal 150-400 [facility] Comment on above: Order Comment: << On admission If not done in ED>> No: Do not add to previous draw Performed By: #### 0 0121, 94790, 74397, 68318, 89060 #### [facility] [address] [place] [address], [facility] RBC (Bld) [#/Vol] 3.61 10*6/uL Low 4.20-5.70 [facility] Comment on above: Order Comment: << On admission If not done in ED>> No: Do not add to previous draw Performed By: #### 0 0121, 97763, 98676, 58066, 30028 #### [facility] [address] [place] [address], [place] WBC (Bld) [#/Vol] 10.21 10*3/uL Normal 4.00-10.60 [facility] Comment on above: Order Comment: << On admission If not done in ED>> No: Do not add to previous draw Performed By: #### 0 0121, 48464, 31270, 44087, 87018 #### [facility] [address] [facility] [address], [facility] MAGNESIUM BLOODon 03-24-2019 Magnesium [Mass/Vol] 2.4 mg/dL Normal 1.9-2.7 [facility] Comment on above: Order Comment: << On admission If not done in ED>> No: Do not add to previous draw Performed By: #### 0 0121, 76551, 52737, 60596, 87571 #### [facility] [address] [place] [address], [facility] PHOSPHORUS BLOODon 9 Phosphate [Mass/Vol] 2.9 mg/dL Normal 2.5-5.0 [facility] Comment on above: Order Comment: << On admission If not done in ED>> No: Do not add to previous draw Performed By: #### 0 0121, 78744, 61275, 73564, 71809 #### [facility] [address] [place] [address], [facility] POC GLUCOSE LABon 03-24-2019 Glucose [Mass/Vol] 107 mg/dL High 70-100 [facility] Comment on above: Performed By: #### 0 0121, 46251, 59954, 08501, 19227 #### [facility] [address] [place] [address], [facility] PORTABLE CHEST 1 VIEWon 03-01 PORTABLE CHEST 1 VIEW [facility] Department of Radiology [address] [place] [address] ======== Patient Name: TRACIE CRAIN : 1965 Sex: M Age: Race: NA Pt. Location: [id number] Patient Status: I Ordered Date: 03/24/2019 4:00:00 [...] recommended. Electronically signed by:Scottie Fall. Transcribed by: [email or web address], User Resident: Electronically Signed by: SCOTTIE FALL @ 03/24/2019 10:43 AM Normal [facility] Comment on above: Order Comment: << On admission If not done in ED>> No: Do not add to previous draw POC GLUCOSE LABon 03-23-2019 Glucose [Mass/Vol] 150 mg/dL High 70-100 [facility] Comment on above: Performed By: #### 0 0121, 53995, 96989, 90940, 63920 #### [facility] [address] [place] [address], [place] Glucose [Mass/Vol] 110 mg/dL High 70-100 [facility] Comment on above: Performed By: #### 0 0121, 21429, 79671, 86221, 72329 #### [facility] [address] [place] [address], [place] Glucose [Mass/Vol] 112 mg/dL High 70-100 [facility] Comment on above: Performed By: #### 0 0121, 22261, 17424, 36957, 17375 #### [facility] [address] [place] [address], [place] Glucose [Mass/Vol] 93 mg/dL Normal 70-100 [facility] Comment on above: Performed By: #### 0 0121, 03909, 97109, 55825, 73433 #### [facility] [address] [place] [address], [place] ARTERIAL BLOOD GAS WITH ICAo n 03-22-2019 BASE EXCESS 4 mmol/L High -2-3 [facility] Comment on above: Performed By: #### 0 0121, 99094, 76688, 59441, 03394 #### [facility] [address] [place] [address], [place] [employer] NASAL CANNULA Normal [facility] Comment on above: Performed By: #### 0 0121, 47810, 06822, 01946, 01661 #### [facility] [address] [place] [address], [place] HCO3 (Bld) [Moles/Vol] 27 mmol/L Normal 21-28 [facility] Comment on above: Performed By: #### 0 0121, 24488, 24276, 35120, 44129 #### [facility] [address] [place] [address], [place] IONIZED CALCIUM 1.14 mmol/L Normal 1.13-1.32 [facility] Comment on above: Performed By: #### 0 0121, 34067, 46775, 07183, 59604 #### [facility] [address] [place] [address], [place] LPM 6.0 LPM Normal [facility] Comment on above: Performed By: #### 0 0121, 45245, 12600, 57547, 22573 #### [facility] [address] [place] [address], [place] Oxygen (Bld) [Partial pressure] 70 mm[Hg] Low 83-108 [facility] Comment on above: Performed By: #### 0 0121, 56718, 09971, 44557, 27395 #### [facility] [address] [place] [address], [facility] Oxygen saturation in Blood 93.0 % Low 94.0-97.0 [facility] Comment on above: Performed By: #### 0 0121, 29747, 62646, 92735, 02021 #### [facility] [address] [place] [address], [place] PCO2 35 mmHg Normal 35-45 [facility] Comment on above: Performed By: #### 0 0121, 95863, 16973, 43596, 36574 #### [facility] [address] [place] [address], [place] pH (Bld) 7.50 [pH] High 7.35-7.45 [facility] Comment on above: Result Comment: KINJAL REYNOSO NOTE: Effective 12/02/18, reference ranges for Respiratory GEM analyzers running arterial blood have been updated to reflect the stationary boiler fireman's published reference ranges. Performed By: #### 0 0121, 17005, 83407, 09107, 04121 #### [facility] [address] [place] [address], [place] BASIC METABOLIC PANELon 06-2 Calcium [Mass/Vol] 8.9 mg/dL Normal 8.6-10.3 [facility] Comment on above: Order Comment: << On admission If not done in ED>> No: Do not add to previous draw Performed By: #### 0 0121, 52408, 40174, 87190, 70539 #### [facility] [address] [place] [address], [facility] Chloride [Moles/Vol] 101 mmol/L Normal 98-107 [facility] Comment on above: Order Comment: << On admission If not done in ED>> No: Do not add to previous draw Performed By: #### 0 0121, 33743, 92083, 92938, 67153 #### [facility] [address] [place] [address], [facility] CO2 [Moles/Vol] 28 mmol/L Normal 21-31 [facility] Comment on above: Order Comment: << On admission If not done in ED>> No: Do not add to previous draw Performed By: #### 0 0121, 00051, 13773, 32943, 71528 #### [facility] [address] [place] [address], [facility] Creatinine [Mass/Vol] 1.29 mg/dL Normal 0.70-1.30 [facility] Comment on above: Order Comment: << On admission If not done in ED>> No: Do not add to previous draw Performed By: #### 0 0121, 73740, 36923, 64602, 55144 #### [facility] [address] [place] [address], [facility] GFR/1.73 sq M predicted among blacks MDRD (S/P/Bld) [Vol rate/Area] mL/min/{1.73_m2} Normal >60 [facility] Comment on above: Order Comment: << On admission If not done in ED>> No: Do not add to previous draw Performed By: #### 0 0121, 16670, 92412, 35983, 13773 #### [facility] [address] [place] [address], [facility] GFR/1.73 sq M predicted among non-blacks MDRD (S/P/Bld) [Vol rate/Area] 58 ml/min/1.73sq m Abnormal >60 [facility] Comment on above: Order Comment: << On admission If not done in ED>> No: Do not add to previous draw Performed By: #### 0 0121, 63644, 76674, 26097, 92001 #### [facility] [address] [place] [address], [facility] Glucose [Mass/Vol] 111 mg/dL High 70-100 [facility] Comment on above: Order Comment: << On admission If not done in ED>> No: Do not add to previous draw Performed By: #### 0 0121, 83691, 07654, 98162, 28919 #### [facility] [address] [place] [address], [facility] Sodium [Moles/Vol] 139 mmol/L Normal 136-145 [facility] Comment on above: Order Comment: << On admission If not done in ED>> No: Do not add to previous draw Performed By: #### 0 0121, 20463, 15087, 78656, 11666 #### [facility] [address] [place] [address], [place] Urea nitrogen [Mass/Vol] 23 mg/dL Normal 7-25 [facility] Comment on above: Order Comment: << On admission If not done in ED>> No: Do not add to previous draw Performed By: #### 0 0121, 52496, 04967, 19938, 96598 #### [facility] [address] [place] [address], [place] CBC COMPLETE BLOOD COUNTon 0 Erythrocyte distribution width (RBC) [Ratio] 13.4 % Normal 11.5-15.0 [facility] Comment on above: Order Comment: << On admission If not done in ED>> No: Do not add to previous draw Performed By: #### 0 0121, 16755, 32302, 68223, 66484 #### [facility] [address] [place] [address], [facility] Hematocrit (Bld) [Volume fraction] 31.2 % Low 39.0-50.0 [facility] Comment on above: Order Comment: << On admission If not done in ED>> No: Do not add to previous draw Performed By: #### 0 0121, 04705, 61444, 91922, 18322 #### [facility] [address] [place], [place] [address] [place] [address] Hemoglobin (Bld) [Mass/Vol] 10.3 g/dL Low 13.0-17.0 [facility] Comment on above: Order Comment: << On admission If not done in ED>> No: Do not add to previous draw Performed By: #### 0 0121, 44571, 39483, 16220, 55352 #### [facility] [address] [place] [address], [facility] MCH (RBC) [Entitic mass] 28.9 pg Normal 27.0-33.0 [facility] Comment on above: Order Comment: << On admission If not done in ED>> No: Do not add to previous draw Performed By: #### 0 0121, 83866, 17871, 22552, 86804 #### [facility] [address] [place] [address], [facility] MCHC (RBC) [Mass/Vol] 33.0 g/dL Normal 32.0-35.0 [facility] Comment on above: Order Comment: << On admission If not done in ED>> No: Do not add to previous draw Performed By: #### 0 0121, 02100, 96276, 43805, 98929 #### [facility] [address] [facility] [place] [address], [facility] MCV (RBC) [Entitic vol] 87.4 fL Normal 82.0-98.0 [facility] Comment on above: Order Comment: << On admission If not done in ED>> No: Do not add to previous draw Performed By: #### 0 0121, 06713, 04902, 99665, 57543 #### [facility] [address] [place] [address], [facility] Nucleated RBC/100 WBC (Bld) [Ratio] 0 % Normal 0-0 [facility] Comment on above: Order Comment: << On admission If not done in ED>> No: Do not add to previous draw Performed By: #### 0 0121, 97025, 68582, 92092, 25682 #### [facility] [address] [place] [address], [facility] PLAT CNT 88 10*3/uL Low 150-400 [facility] Comment on above: Order Comment: << On admission If not done in ED>> No: Do not add to previous draw Performed By: #### 0 0121, 40998, 56558, 13402, 09278 #### [facility] [address] [place] [address], [facility] RBC (Bld) [#/Vol] 3.57 10*6/uL Low 4.20-5.70 [facility] Comment on above: Order Comment: << On admission If not done in ED>> No: Do not add to previous draw Performed By: #### 0 0121, 72302, 53981, 39682, 44866 #### [facility] [address] [place] [address], [facility] WBC (Bld) [#/Vol] 13.95 10*3/uL High 4.00-10.60 [facility] Comment on above: Order Comment: << On admission If not done in ED>> No: Do not add to previous draw Performed By: #### 0 0121, 07038, 31779, 44265, 38022 #### [facility] [address] [place] [address], [place] COOXIMETRYon 03-22-2019 COHB 2 % Normal [facility] Comment on above: Performed By: #### 0 0121, 56972, 42370, 57442, 89092 #### [facility] [address] [place] [address], [place] METHB 1 % Normal [facility] Comment on above: Performed By: #### 0 0121, 73960, 42376, 68116, 88497 #### [facility] [address] [place] [address], [place] Oxygen saturation in Blood 56.5 % Low 65.0-75.0 [facility] Comment on above: Performed By: #### 0 0121, 84861, 35135, 82851, 66779 #### [facility] [address] [place] [address], [place] THB 9.9 g/dL Normal [facility] Comment on above: Performed By: #### 0 0121, 88597, 37655, 71469, 38003 #### [facility] [address] [place] [address], [place] MAGNESIUM BLOODon 03-22-2019 Magnesium [Mass/Vol] 2.0 mg/dL Normal 1.9-2.7 [facility] Comment on above: Order Comment: << On admission If not done in ED>> No: Do not add to previous draw Performed By: #### 0 0121, 02435, 46197, 15141, 73513 #### [facility] [address] [place] [address], [place] Magnesium [Mass/Vol] 1.9 mg/dL Normal 1.9-2.7 [facility] Comment on above: Order Comment: << On admission If not done in ED>> No: Do not add to previous draw Performed By: #### 0 0121, 25090, 45116, 76118, 12133 #### [facility] [address] [place] [address], [place] PHOSPHORUS BLOODon 9 Phosphate [Mass/Vol] 3.6 mg/dL Normal 2.5-5.0 [facility] Comment on above: Order Comment: << On admission If not done in ED>> No: Do not add to previous draw Performed By: #### 0 0121, 87197, 67295, 78848, 03686 #### [facility] [address] [place] [address], [place] POC GLUCOSE LABon 03-22-2019 Glucose [Mass/Vol] 111 mg/dL High 70-100 [facility] Comment on above: Performed By: #### 0 0121, 21641, 58917, 18611, 62395 #### [facility] [address] [place] [address], [place] Glucose [Mass/Vol] 108 mg/dL High 70-100 [facility] Comment on above: Performed By: #### 0 0121, 13384, 28995, 89483, 73761 #### [facility] [address] [place] [address], [place] Glucose [Mass/Vol] 109 mg/dL High 70-100 [facility] Comment on above: Performed By: #### 0 0121, 60578, 39502, 32372, 31980 #### [facility] [address] [place] [address], [place] Glucose [Mass/Vol] 99 mg/dL Normal 70-100 [facility] Comment on above: Performed By: #### 0 0121, 20283, 93038, 93044, 29343 #### [facility] [address] [place] [address], [place] Glucose [Mass/Vol] 91 mg/dL Normal 70-100 [facility] Comment on above: Performed By: #### 0 0121, 10560, 94861, 88931, 09377 #### [address] [place] [address], [facility] PORTABLE CHEST 1 VIEWon 03-01 PORTABLE CHEST 1 VIEW [facility] Department of Radiology [address] [place] [id number] ======== Patient Name: TRACIE CRAIN : 1965 Sex: M Age: Race: NA Pt. Location: [id number] Patient Status: I Ordered Date: 03/22/2019 5:00:00 [...] removal of endotracheal and enteric tubes. Right-sided Snyder-Sher catheter is again seen with tip overlying [...] Small left pleural effusion, unchanged. 3. Right-sided Snyder-Sher catheter with tip projecting over the pulmonary trunk, unchanged. 4. Redemonstration of 2 chest tubes on the right, unchanged. Approved by:Cynthia Finley on 03/22/2019 8:06 AM EDT. I, Yenni Osuna, have reviewed the images and report and concur with these findings. Electronically signed by:Yenni Osuna. Transcribed by: [id number], User Resident: CYNTHIA FINLEY Electronically Signed by: YENNI OSUNA @ 03/22/2019 01:07 PM I personally read this/these film(s) with this resident Normal [facility] Comment on above: Order Comment: << On admission If not done in ED>> No: Do not add to previous draw POTASSIUM BLOODon 03-22-2019 Potassium [Moles/Vol] 3.1 mmol/L Low 3.5-5.1 [facility] Comment on above: Order Comment: << On admission If not done in ED>> No: Do not add to previous draw Performed By: #### 0 0121, 95716, 92585, 75542, 36901 #### [facility] [address] [facility]. [address] PROTHROMBIN TIMEon 9 INR Coag (PPP) [Relative time] 1.37 {INR} High 0.91-1.16 [facility] Comment on above: Order Comment: [...] CHEST 1995;[id number]. Performed By: #### 0 0121, 76930, 59319, 33459, 62566 #### [facility] [address] PT Coag (PPP) [Time] 16.9 s High 12.3-14.8 [facility] Comment on above: Order Comment: << On admission If not done in ED>> No: Do not add to previous draw Result Comment: ALL RESULTS MUST BE INTERPRETED WITH RESPECT TO BLOOD DRAWING ARTIFACT OR DILUTION ERROR OF ANTICOAGULANT AT THE TIME OF SAMPLING. Performed By: #### 0 0121, 63039, 01626, 33559, 01589 #### [facility] [address] [facility]. [address] ARTERIAL BLOOD GAS W/COOXon 03-21-2019 BASE EXCESS 1 mmol/L Normal -2-3 [facility] Comment on above: Performed By: #### 0 0121, 12193, 73733, 08441, 64446 #### [facility] [address] [facility]. [address] COHB 1.4 % Normal 0.0-1.5 [facility] Comment on above: Performed By: #### 0 0121, 22513, 95664, 62839, 44471 #### [facility] [address] [place] [address], [place] FIO2 40 % Normal [facility] Comment on above: Performed By: #### 0 0121, 60477, 39031, 06672, 71231 #### [facility] [address] [place] [address], [place] HCO3 (Bld) [Moles/Vol] 24 mmol/L Normal 21-28 [facility] Comment on above: Performed By: #### 0 0121, 88520, 94481, 78992, 47637 #### [facility] [address] [place] [address], [place] METHB 1.1 % Normal 0.0-1.5 [facility] Comment on above: Performed By: #### 0 0121, 29035, 33260, 52795, 71506 #### [facility] [address] [place] [address], [facility] MIN VOLUME 13.1 Normal [facility] Comment on above: Performed By: #### 0 0121, 97866, 20618, 21695, 50537 #### [facility] [address] [place] [address], [facility] MODALITY Positive Normal [facility] Comment on above: Performed By: #### 0 0121, 01110, 51459, 05097, 81709 #### [facility] [address] [place] [address], [place] Oxygen (Bld) [Partial pressure] 86 mm[Hg] Normal 83-108 [facility] Comment on above: Performed By: #### 0 0121, 35786, 72342, 32127, 70127 #### [facility] [address] [place] [address], [place] Oxygen saturation in Blood 94.8 % Normal 94.0-97.0 [facility] Comment on above: Performed By: #### 0 0121, 51057, 86864, 24866, 26421 #### [facility] [address] [place] [address], [facility] PCO2 32 mmHg Low 35-45 [facility] Comment on above: Performed By: #### 0 0121, 50736, 58786, 83794, 12815 #### [facility] [address] [place] [address], [facility] PEEP 8.0 CMH20 Normal [facility] Comment on above: Performed By: #### 0 0121, 62656, 80417, 21748, 85459 #### [facility] [address] [place] [address], [facility] pH (Bld) 7.49 [pH] High 7.35-7.45 [facility] Comment on above: Result Comment: PLEA SE NOTE: Effective 12/02/18, reference ranges for Respiratory GEM analyzers running arterial blood have been updated to reflect the stationary boiler fireman's published reference ranges. Performed By: #### 0 0121, 27773, 30458, 20152, 52058 #### [facility] [address] [place] [address], [facility] PRESSURE SUPPORT 5 Normal [facility] Comment on above: Performed By: #### 0 0121, 79564, 10300, 78592, 09187 #### [facility] [address] [place] [address], [facility] THB 10.3 g/dL Low 12.0-16.3 [facility] Comment on above: Performed By: #### 0 0121, 13254, 62175, 42945, 37247 #### [facility] [address] [place] [address], [facility] ARTERIAL BLOOD GAS WITH ICAo n 03-21-2019 BASE EXCESS 4 mmol/L High -2-3 [facility] Comment on above: Performed By: #### 0 0121, 67266, 17902, 49214, 00559 #### [facility] [address] [place] [address], [place] [employer] [place] Normal [facility] Comment on above: Performed By: #### 0 0121, 31503, 64223, 79237, 80645 #### [facility] [address] [place] [address], [place] HCO3 (Bld) [Moles/Vol] 27 mmol/L Normal 21-28 [facility] Comment on above: Performed By: #### 0 0121, 23399, 55415, 84514, 46017 #### [facility] [address] [place] [address], [place] IONIZED CALCIUM 1.17 mmol/L Normal 1.13-1.32 [facility] Comment on above: Performed By: #### 0 0121, 18525, 90560, 78665, 29352 #### [facility] [address] [place] [address], [place] LPM 6.0 LPM Normal [facility] Comment on above: Performed By: #### 0 0121, 19797, 69532, 29326, 15894 #### [facility] [address] [place] [address], [place] Oxygen (Bld) [Partial pressure] 67 mm[Hg] Low 83-108 [facility] Comment on above: Performed By: #### 0 0121, 04324, 54866, 10605, 79044 #### [facility] [address] [place] [address], [place] Oxygen saturation in Blood 92.7 % Low 94.0-97.0 [facility] Comment on above: Performed By: #### 0 0121, 14067, 67054, 49512, 82559 #### [facility] [address] [place] [address], [place] PCO2 36 mmHg Normal 35-45 [facility] Comment on above: Performed By: #### 0 0121, 84435, 17651, 66487, 25713 #### [facility] [address] [place] [address], [facility] pH (Bld) 7.49 [pH] High 7.35-7.45 [facility] Comment on above: Result Comment: KINJAL REYNOSO NOTE: Effective 12/02/18, reference ranges for Respiratory GEM analyzers running arterial blood have been updated to reflect the stationary boiler fireman's published reference ranges. Performed By: #### 0 0121, 04406, 07393, 86610, 29040 #### [facility] [address] [place] [address], [facility] BASE EXCESS 1 mmol/L Normal -2-3 [facility] Comment on above: Performed By: #### 0 0121, 05087, 76694, 43331, 01741 #### [facility] [address] DELIVERY SYSTEMS VENTILATOR Normal [facility] Comment on above: Performed By: #### 0 0121, 77670, 28041, 25934, 15257 #### [facility] [address] [place] [address], [facility] FIO2 40 % Normal [facility] Comment on above: Performed By: #### 0 0121, 54079, 02448, 02558, 54169 #### [facility] [address] [place] [address], [facility] HCO3 (Bld) [Moles/Vol] 24 mmol/L Normal 21-28 [facility] Comment on above: Performed By: #### 0 0121, 69919, 08916, 49988, 28716 #### [facility] [address] [place] [address], [facility] IONIZED CALCIUM 1.07 mmol/L Low 1.13-1.32 [facility] Comment on above: Performed By: #### 0 0121, 45848, 18660, 91275, 25986 #### [facility] [address] [place] [address], [place] MIN VOLUME 15.6 Normal [facility] Comment on above: Performed By: #### 0 0121, 92679, 33221, 70884, 84833 #### [facility] [address] [place] [address], [place] MODALITY Positive Normal [facility] Comment on above: Performed By: #### 0 0121, 97189, 08051, 94844, 24424 #### [facility] [address] [place] [address], [place] Oxygen (Bld) [Partial pressure] 89 mm[Hg] Normal 83-108 [facility] Comment on above: Performed By: #### 0 0121, 16860, 50706, 11613, 92913 #### [facility] [address] [place] [address], [place] Oxygen saturation in Blood 94.7 % Normal 94.0-97.0 [facility] Comment on above: Performed By: #### 0 0121, 69196, 70523, 90899, 06326 #### [facility] [address] [place] [address], [place] PCO2 30 mmHg Low 35-45 [facility] Comment on above: Performed By: #### 0 0121, 33243, 76918, 41846, 21269 #### [facility] [address] [place] [address], [place] PEEP 8.0 CMH20 Normal [facility] Comment on above: Performed By: #### 0 0121, 50949, 74902, 35055, 95749 #### [facility] [address] [place] [address], [place] pH (Bld) 7.51 [pH] High 7.35-7.45 [facility] Comment on above: Result Comment: KINJAL REYNOSO NOTE: Effective 12/02/18, reference ranges for Respiratory GEM analyzers running arterial blood have been updated to reflect the stationary boiler fireman's published reference ranges. Performed By: #### 0 0121, 93281, 16315, 89195, 20387 #### [facility] [address] [place] [address], [facility] PRESSURE SUPPORT 10 Normal [facility] Comment on above: Performed By: #### 0 0121, 07003, 15880, 85487, 60612 #### [facility] [address] [place] [address], [facility] BASE EXCESS 0 mmol/L Normal -2-3 [facility] Comment on above: Performed By: #### 0 0121, 91607, 04016, 76537, 41532 #### [facility] [address] [place] [id number], [facility] DELIVERY SYSTEMS MV Normal [facility] Comment on above: Performed By: #### 0 0121, 06922, 80597, 51608, 73038 #### [facility] [address] [place] [address], [facility] FIO2 40 % Normal [facility] Comment on above: Performed By: #### 0 0121, 43190, 85324, 46220, 09124 #### [facility] [address] [place] [address], [facility] HCO3 (Bld) [Moles/Vol] 23 mmol/L Normal 21-28 [facility] Comment on above: Performed By: #### 0 0121, 96859, 79185, 68043, 45608 #### [facility] [address] [place] [address], [place] IONIZED CALCIUM 1.07 mmol/L Low 1.13-1.32 [facility] Comment on above: Performed By: #### 0 0121, 88523, 25952, 01896, 67823 #### [facility] [address] [place] [address], [place] MIN VOLUME 17.0 Normal [facility] Comment on above: Performed By: #### 0 0121, 72093, 67972, 42677, 26775 #### [facility] [address] [place] [address], [place] MODALITY AC Normal [facility] Comment on above: Performed By: #### 0 0121, 15016, 72344, 40306, 46905 #### [facility] [address] [place] [address], [place] Oxygen (Bld) [Partial pressure] 94 mm[Hg] Normal 83-108 [facility] Comment on above: Performed By: #### 0 0121, 21959, 89038, 21554, 10492 #### [facility] [address] [place] [address], [place] Oxygen saturation in Blood 95.1 % Normal 94.0-97.0 [facility] Comment on above: Performed By: #### 0 0121, 39288, 52457, 89142, 74709 #### [facility] [address] [place] [address], [place] PCO2 30 mmHg Low 35-45 [facility] Comment on above: Performed By: #### 0 0121, 05622, 39569, 06441, 09322 #### [facility] [address] [place] [address], [place] PEEP 8.0 CMH20 Normal [facility] Comment on above: Performed By: #### 0 0121, 12730, 52624, 94015, 87217 #### [facility] [address] [place] [address], [place] pH (Bld) 7.49 [pH] High 7.35-7.45 [facility] Comment on above: Result Comment: PLEA SE NOTE: Effective 12/02/18, reference ranges for Respiratory GEM analyzers running arterial blood have been updated to reflect the stationary boiler fireman's published reference ranges. Performed By: #### 0 0121, 81851, 08785, 65105, 25651 #### [facility] [address] [place] [address], [facility] TIDAL VOLUME (VT) CC 700 cc Normal [facility] Comment on above: Performed By: #### 0 0121, 62272, 09015, 74469, 66787 #### [facility] [address] [place] [address], [facility] BASE EXCESS 0 mmol/L Normal -2-3 [facility] Comment on above: Performed By: #### 0 0121, 20857, 66693, 78332, 02820 #### [facility] [address] [place] [address], [facility] DELIVERY SYSTEMS MV Normal [facility] Comment on above: Performed By: #### 0 0121, 92834, 19455, 58580, 03498 #### [facility] [address] [place] [address], [facility] FIO2 50 % Normal [facility] Comment on above: Performed By: #### 0 0121, 41106, 01004, 11846, 85218 #### [facility] [address] [place] [address], [facility] HCO3 (Bld) [Moles/Vol] 23 mmol/L Normal 21-28 [facility] Comment on above: Performed By: #### 0 0121, 74932, 59791, 77563, 60684 #### [facility] [address] [place] [address], [facility] IONIZED CALCIUM 1.14 mmol/L Normal 1.13-1.32 [facility] Comment on above: Performed By: #### 0 0121, 03552, 76402, 83851, 47835 #### [facility] [address] [place] [address], [place] MIN VOLUME 13.3 Normal [facility] Comment on above: Performed By: #### 0 0121, 90165, 66229, 30295, 98065 #### [facility] [address] [place] [address], [place] MODALITY AC Normal [facility] Comment on above: Performed By: #### 0 0121, 22602, 53870, 42401, 61722 #### [facility] [address] [place] [address], [place] Oxygen (Bld) [Partial pressure] 71 mm[Hg] Low 83-108 [facility] Comment on above: Performed By: #### 0 0121, 29000, 22720, 42867, 86168 #### [facility] [address] [place] [address], [place] Oxygen saturation in Blood 92.6 % Low 94.0-97.0 [facility] Comment on above: Performed By: #### 0 0121, 72398, 55666, 24789, 22708 #### [facility] [address] [place] [address], [place] PCO2 31 mmHg Low 35-45 [facility] Comment on above: Performed By: #### 0 0121, 44270, 49603, 97656, 16980 #### [facility] [address] [place] [address], [place] PEEP 8.0 CMH20 Normal [facility] Comment on above: Performed By: #### 0 0121, 64376, 27679, 77418, 63655 #### [facility] [address] [place] [address], [place] PF RATIO 142 mmHg Normal [facility] Comment on above: Performed By: #### 0 0121, 80709, 54509, 37877, 78933 #### [facility] [address] [place] [address], [facility] pH (Bld) 7.47 [pH] High 7.35-7.45 [facility] Comment on above: Result Comment: KINJAL REYNOSO NOTE: Effective 12/02/18, reference ranges for Respiratory GEM analyzers running arterial blood have been updated to reflect the stationary boiler fireman's published reference ranges. Performed By: #### 0 0121, 90988, 49109, 66561, 63787 #### [facility] [address] [place] [address], [facility] TIDAL VOLUME (VT) CC 700 cc Normal [facility] Comment on above: Performed By: #### 0 0121, 41014, 91491, 63961, 71693 #### [facility] [address] [place] [address], [facility] BASIC METABOLIC PANELon 06-2 Calcium [Mass/Vol] 8.6 mg/dL Normal 8.6-10.3 [facility] Comment on above: Order Comment: << On admission If not done in ED>> No: Do not add to previous draw Performed By: #### 0 0121, 34482, 64147, 04369, 35965 #### [facility] [address] [place] [address], [place] Chloride [Moles/Vol] 104 mmol/L Normal 98-107 [facility] Comment on above: Order Comment: << On admission If not done in ED>> No: Do not add to previous draw Performed By: #### 0 0121, 34000, 21549, 43498, 85357 #### [facility] [address] [place] [address], [place] CO2 [Moles/Vol] 26 mmol/L Normal 21-31 [facility] Comment on above: Order Comment: << On admission If not done in ED>> No: Do not add to previous draw Performed By: #### 0 0121, 78407, 78301, 68415, 26966 #### [facility] [address] [place] [address], [place] Creatinine [Mass/Vol] 1.48 mg/dL High 0.70-1.30 [facility] Comment on above: Order Comment: << On admission If not done in ED>> No: Do not add to previous draw Performed By: #### 0 0121, 51743, 29593, 04498, 36013 #### [facility] [address] [place] [address], [place] GFR/1.73 sq M predicted among blacks MDRD (S/P/Bld) [Vol rate/Area] 60 ml/min/1.73sq m Abnormal >60 [facility] Comment on above: Order Comment: << On admission If not done in ED>> No: Do not add to previous draw Performed By: #### 0 0121, 43772, 64833, 64300, 17450 #### [facility] [address] [place] [address], [place] GFR/1.73 sq M predicted among non-blacks MDRD (S/P/Bld) [Vol rate/Area] 50 ml/min/1.73sq m Abnormal >60 [facility] Comment on above: Order Comment: << On admission If not done in ED>> No: Do not add to previous draw Performed By: #### 0 [id number], [id number], [id number], [id number], [id number] #### [facility] [address] [place] [address], [place] Glucose [Mass/Vol] 115 mg/dL High 70-100 [facility] Comment on above: Order Comment: << On admission If not done in ED>> No: Do not add to previous draw Performed By: #### 0 [id number], [id number], [id number], [id number], [id number] #### [facility] [address] [place] [address], [place] Potassium [Moles/Vol] 3.4 mmol/L Low 3.5-5.1 [facility] Comment on above: Order Comment: << On admission If not done in ED>> No: Do not add to previous draw Performed By: #### 0 0121, 31427, 09710, 50220, 18766 #### [facility] [address] [place] [address], [place] Sodium [Moles/Vol] 138 mmol/L Normal 136-145 [facility] Comment on above: Order Comment: << On admission If not done in ED>> No: Do not add to previous draw Performed By: #### 0 0121, 70703, 14797, 10322, 67138 #### [facility] [address] [place] [address], [place] Urea nitrogen [Mass/Vol] 23 mg/dL Normal 7-25 [facility] Comment on above: Order Comment: << On admission If not done in ED>> No: Do not add to previous draw Performed By: #### 0 0121, 39910, 56962, 49962, 49050 #### [facility] [address] [place] [address], [place] Calcium [Mass/Vol] 8.1 mg/dL Low 8.6-10.3 [facility] Comment on above: Order Comment: << On admission If not done in ED>> No: Do not add to previous draw Performed By: #### 0 0121, 75562, 71984, 97720, 97319 #### [facility] [address] [place] [address], [place] Chloride [Moles/Vol] 105 mmol/L Normal 98-107 [facility] Comment on above: Order Comment: << On admission If not done in ED>> No: Do not add to previous draw Performed By: #### 0 0121, 64306, 27580, 70206, 01606 #### [facility] [address] [place] [address], [place] CO2 [Moles/Vol] 26 mmol/L Normal 21-31 [facility] Comment on above: Order Comment: << On admission If not done in ED>> No: Do not add to previous draw Performed By: #### 0 0121, 26252, 49348, 57641, 36625 #### [facility] [address] [place] [address], [facility] Creatinine [Mass/Vol] 1.37 mg/dL High 0.70-1.30 [facility] Comment on above: Order Comment: << On admission If not done in ED>> No: Do not add to previous draw Performed By: #### 0 0121, 62310, 00293, 93026, 12706 #### [facility] [address] [place] [address], [facility] GFR/1.73 sq M predicted among blacks MDRD (S/P/Bld) [Vol rate/Area] mL/min/{1.73_m2} Normal >60 [facility] Comment on above: Order Comment: << On admission If not done in ED>> No: Do not add to previous draw Performed By: #### 0 0121, 76075, 97727, 91094, 30811 #### [facility] [address] [place] [address], [facility] GFR/1.73 sq M predicted among non-blacks MDRD (S/P/Bld) [Vol rate/Area] 54 ml/min/1.73sq m Abnormal >60 [facility] Comment on above: Order Comment: << On admission If not done in ED>> No: Do not add to previous draw Performed By: #### 0 0121, 95222, 67121, 27083, 46938 #### [facility] [address] [place] [address], [place] Glucose [Mass/Vol] 113 mg/dL High 70-100 [facility] Comment on above: Order Comment: << On admission If not done in ED>> No: Do not add to previous draw Performed By: #### 0 0121, 39014, 30888, 75399, 74056 #### [facility] [address] [place] [address], [place] Potassium [Moles/Vol] 3.3 mmol/L Low 3.5-5.1 [facility] Comment on above: Order Comment: << On admission If not done in ED>> No: Do not add to previous draw Performed By: #### 0 0121, 37731, 81421, 48001, 61766 #### [facility] [address] [place] [address], [place] Sodium [Moles/Vol] 138 mmol/L Normal 136-145 [facility] Comment on above: Order Comment: << On admission If not done in ED>> No: Do not add to previous draw Performed By: #### 0 0121, 04161, 16755, 67339, 28217 #### [facility] [address] [place] [address], [place] Urea nitrogen [Mass/Vol] 19 mg/dL Normal 7-25 [facility] Comment on above: Order Comment: << On admission If not done in ED>> No: Do not add to previous draw Performed By: #### 0 0121, 78945, 40075, 01557, 24861 #### [facility] [address] [place] [address], [place] Calcium [Mass/Vol] 7.4 mg/dL Low 8.6-10.3 [facility] Comment on above: Order Comment: << On admission If not done in ED>> No: Do not add to previous draw Performed By: #### 0 0121, 15754, 70050, 69513, 83361 #### [facility] [address] [place] [address], [place] Chloride [Moles/Vol] 109 mmol/L High 98-107 [facility] Comment on above: Order Comment: << On admission If not done in ED>> No: Do not add to previous draw Performed By: #### 0 0121, 68127, 27434, 32981, 29099 #### [facility] [address] [place] [address], [place] CO2 [Moles/Vol] 21 mmol/L Normal 21-31 [facility] Comment on above: Order Comment: << On admission If not done in ED>> No: Do not add to previous draw Performed By: #### 0 0121, 88206, 70883, 10549, 01071 #### [facility] [address] [place] [address], [place] Creatinine [Mass/Vol] 1.22 mg/dL Normal 0.70-1.30 [facility] Comment on above: Order Comment: << On admission If not done in ED>> No: Do not add to previous draw Performed By: #### 0 0121, 37754, 21279, 35031, 15662 #### [facility] [address] [place] [address], [place] GFR/1.73 sq M predicted among blacks MDRD (S/P/Bld) [Vol rate/Area] mL/min/{1.73_m2} Normal >60 [facility] Comment on above: Order Comment: << On admission If not done in ED>> No: Do not add to previous draw Performed By: #### 0 0121, 90056, 98780, 86109, 93159 #### [facility] [address] [place] [address], [place] GFR/1.73 sq M predicted among non-blacks MDRD (S/P/Bld) [Vol rate/Area] mL/min/{1.73_m2} Normal >60 [facility] Comment on above: Order Comment: << On admission If not done in ED>> No: Do not add to previous draw Performed By: #### 0 0121, 99415, 72214, 23703, 67367 #### [facility] [address] [place] [address], [facility] Glucose [Mass/Vol] 129 mg/dL High 70-100 [facility] Comment on above: Order Comment: << On admission If not done in ED>> No: Do not add to previous draw Performed By: #### 0 0121, 82512, 27147, 78311, 83407 #### [facility] [address] [place] [address], [facility] Potassium [Moles/Vol] 3.1 mmol/L Low 3.5-5.1 [facility] Comment on above: Order Comment: << On admission If not done in ED>> No: Do not add to previous draw Performed By: #### 0 0121, 68338, 60801, 87012, 49476 #### [facility] [address] [place] [address], [facility] Sodium [Moles/Vol] 139 mmol/L Normal 136-145 [facility] Comment on above: Order Comment: << On admission If not done in ED>> No: Do not add to previous draw Performed By: #### 0 0121, 24726, 48845, 35048, 37841 #### [facility] [address] [place] [address], [facility] Urea nitrogen [Mass/Vol] 17 mg/dL Normal 7-25 [facility] Comment on above: Order Comment: << On admission If not done in ED>> No: Do not add to previous draw Performed By: #### 0 0121, 63265, 88230, 40176, 90965 #### [facility] [address] [place] [address], [facility] CBC COMPLETE BLOOD COUNTon 0 - Erythrocyte distribution width (RBC) [Ratio] 13.5 % Normal 11.5-15.0 [facility] Comment on above: Order Comment: << On admission If not done in ED>> No: Do not add to previous draw Performed By: #### 0 0121, 96333, 14934, 13198, 29431 #### [facility] [address] [place] [address], [facility] Hematocrit (Bld) [Volume fraction] 33.7 % Low 39.0-50.0 [facility] Comment on above: Order Comment: << On admission If not done in ED>> No: Do not add to previous draw Performed By: #### 0 0121, 91131, 17461, 97846, 14506 #### [facility] [address] [facility] [place] [address], [facility] Hemoglobin (Bld) [Mass/Vol] 10.9 g/dL Low 13.0-17.0 [facility] Comment on above: Order Comment: << On admission If not done in ED>> No: Do not add to previous draw Performed By: #### 0 0121, 89178, 13645, 52758, 54171 #### [facility] [address] [place] [address], [facility] MCH (RBC) [Entitic mass] 29.3 pg Normal 27.0-33.0 [facility] Comment on above: Order Comment: << On admission If not done in ED>> No: Do not add to previous draw Performed By: #### 0 0121, 84865, 12766, 73247, 91123 #### [facility] [address] [place] [address], [facility] MCHC (RBC) [Mass/Vol] 32.3 g/dL Normal 32.0-35.0 [facility] Comment on above: Order Comment: << On admission If not done in ED>> No: Do not add to previous draw Performed By: #### 0 0121, 33603, 41979, 09200, 69323 #### [facility] [address] [place] [address], [facility] MCV (RBC) [Entitic vol] 90.6 fL Normal 82.0-98.0 [facility] Comment on above: Order Comment: << On admission If not done in ED>> No: Do not add to previous draw Performed By: #### 0 0121, 33544, 90480, 39366, 28348 #### [facility] [address] [place] [address], [place] Nucleated RBC/100 WBC (Bld) [Ratio] 0 % Normal 0-0 [facility] Comment on above: Order Comment: << On admission If not done in ED>> No: Do not add to previous draw Performed By: #### 0 0121, 47793, 71133, 42562, 80545 #### [facility] [address] [place] [address], [place] PLAT CNT 100 10*3/uL Low 150-400 [facility] Comment on above: Order Comment: << On admission If not done in ED>> No: Do not add to previous draw Performed By: #### 0 0121, 94547, 98333, 29047, 62507 #### [facility] [address] [place] [address], [place] RBC (Bld) [#/Vol] 3.72 10*6/uL Low 4.20-5.70 [facility] Comment on above: Order Comment: << On admission If not done in ED>> No: Do not add to previous draw Performed By: #### 0 0121, 12416, 19855, 99271, 19986 #### [facility] [address] [place] [address], [place] WBC (Bld) [#/Vol] 17.24 10*3/uL High 4.00-10.60 [facility] Comment on above: Order Comment: << On admission If not done in ED>> No: Do not add to previous draw Performed By: #### 0 0121, 79091, 62501, 81246, 01755 #### [facility] [address] Erythrocyte distribution width (RBC) [Ratio] 13.5 % Normal 11.5-15.0 [facility] Comment on above: Order Comment: << On admission If not done in ED>> No: Do not add to previous draw Performed By: #### 0 0121, 39664, 61015, 74012, 40616 #### [facility] [address] Hematocrit (Bld) [Volume fraction] 35.2 % Low 39.0-50.0 [facility] Comment on above: Order Comment: << On admission If not done in ED>> No: Do not add to previous draw Performed By: #### 0 0121, 74403, 40992, 02812, 38288 #### [facility] [address] Hemoglobin (Bld) [Mass/Vol] 11.5 g/dL Low 13.0-17.0 [facility] Comment on above: Order Comment: << On admission If not done in ED>> No: Do not add to previous draw Performed By: #### 0 0121, 88707, 21308, 35673, 29242 #### [facility] [address] IMM PLATELET FRAC 4.3 % Normal 0.8-6.3 [facility] Comment on above: Order Comment: << On admission If not done in ED>> No: Do not add to previous draw Performed By: #### 0 0121, 23311, 15200, 70768, 41854 #### [facility] [address] [place] [address], [facility] MCH (RBC) [Entitic mass] 29.4 pg Normal 27.0-33.0 [facility] Comment on above: Order Comment: << On admission If not done in ED>> No: Do not add to previous draw Performed By: #### 0 0121, 38802, 10713, 43869, 11047 #### [facility] [address] [facility] [place] [address], [facility] MCHC (RBC) [Mass/Vol] 32.7 g/dL Normal 32.0-35.0 [facility] Comment on above: Order Comment: << On admission If not done in ED>> No: Do not add to previous draw Performed By: #### 0 0121, 61891, 72109, 61043, 85348 #### [facility] [address] [place] [address], [facility] MCV (RBC) [Entitic vol] 90.0 fL Normal 82.0-98.0 [facility] Comment on above: Order Comment: << On admission If not done in ED>> No: Do not add to previous draw Performed By: #### 0 0121, 37223, 66656, 04544, 63957 #### [facility] [address] Nucleated RBC/100 WBC (Bld) [Ratio] 0 % Normal 0-0 [facility] Comment on above: Order Comment: << On admission If not done in ED>> No: Do not add to previous draw Performed By: #### 0 0121, 90083, 86093, 77869, 92119 #### [facility] [address] [facility] [place] [address], [facility] PLAT CNT 99 10*3/uL Low 150-400 [facility] Comment on above: Order Comment: << On admission If not done in ED>> No: Do not add to previous draw Performed By: #### 0 0121, 04541, 30541, 32785, 96632 #### [facility] [address] [place] [address], [facility] RBC (Bld) [#/Vol] 3.91 10*6/uL Low 4.20-5.70 [facility] Comment on above: Order Comment: << On admission If not done in ED>> No: Do not add to previous draw Performed By: #### 0 0121, 26417, 64628, 26207, 15677 #### [facility] [address] [place] [address], [facility] WBC (Bld) [#/Vol] 19.55 10*3/uL High 4.00-10.60 [facility] Comment on above: Order Comment: << On admission If not done in ED>> No: Do not add to previous draw Performed By: #### 0 0121, 03594, 32729, 70627, 05930 #### [facility] [address] [place], [place] [address] [place] [address] Erythrocyte distribution width (RBC) [Ratio] 13.5 % Normal 11.5-15.0 [facility] Comment on above: Order Comment: << On admission If not done in ED>> No: Do not add to previous draw Performed By: #### 0 0121, 98762, 91282, 14359, 88148 #### [facility] [address] [place] [address], [facility] Hematocrit (Bld) [Volume fraction] 38.1 % Low 39.0-50.0 [facility] Comment on above: Order Comment: << On admission If not done in ED>> No: Do not add to previous draw Performed By: #### 0 0121, 85594, 16710, 65709, 87522 #### [facility] [address] [place] [address], [facility] Hemoglobin (Bld) [Mass/Vol] 12.2 g/dL Low 13.0-17.0 [facility] Comment on above: Order Comment: << On admission If not done in ED>> No: Do not add to previous draw Performed By: #### 0 0121, 52209, 59899, 05155, 70475 #### [facility] [address] [place] [address], [place] IMM PLATELET FRAC 3.8 % Normal 0.8-6.3 [facility] Comment on above: Order Comment: << On admission If not done in ED>> No: Do not add to previous draw Performed By: #### 0 0121, 89850, 71001, 55854, 03105 #### [facility] [address] [place] [address], [facility] MCH (RBC) [Entitic mass] 29.0 pg Normal 27.0-33.0 [facility] Comment on above: Order Comment: << On admission If not done in ED>> No: Do not add to previous draw Performed By: #### 0 0121, 48838, 37058, 39204, 56084 #### [facility] [address] MCHC (RBC) [Mass/Vol] 32.0 g/dL Normal 32.0-35.0 [facility] Comment on above: Order Comment: << On admission If not done in ED>> No: Do not add to previous draw Performed By: #### 0 0121, 12107, 30127, 58163, 32016 #### [facility] [address] [facility] [place] [address], [facility] MCV (RBC) [Entitic vol] 90.7 fL Normal 82.0-98.0 [facility] Comment on above: Order Comment: << On admission If not done in ED>> No: Do not add to previous draw Performed By: #### 0 0121, 26804, 14851, 59779, 86964 #### [facility] [address] [facility] [place] [address], [facility] Nucleated RBC/100 WBC (Bld) [Ratio] 0 % Normal 0-0 [facility] Comment on above: Order Comment: << On admission If not done in ED>> No: Do not add to previous draw Performed By: #### 0 0121, 39975, 59485, 19184, 68580 #### [facility] [address] [place] [address], [facility] PLAT CNT 112 10*3/uL Low 150-400 [facility] Comment on above: Order Comment: << On admission If not done in ED>> No: Do not add to previous draw Performed By: #### 0 0121, 33283, 94028, 61715, 93539 #### [facility] [address] [place] [address], [facility] RBC (Bld) [#/Vol] 4.20 10*6/uL Normal 4.20-5.70 [facility] Comment on above: Order Comment: << On admission If not done in ED>> No: Do not add to previous draw Performed By: #### 0 0121, 09079, 63514, 50979, 50406 #### [facility] [address] [place] [address], [facility] WBC (Bld) [#/Vol] 21.05 10*3/uL High 4.00-10.60 [facility] Comment on above: Order Comment: << On admission If not done in ED>> No: Do not add to previous draw Performed By: #### 0 0121, 09068, 90236, 53894, 29456 #### [facility] [address] [place] [address], [facility] COOXIMETRYon 03-21-2019 COHB 1 % Normal [facility] Comment on above: Performed By: #### 0 0121, 52626, 25046, 67751, 87989 #### [facility] [address] [place] [address], [facility] METHB 1 % Normal [facility] Comment on above: Performed By: #### 0 0121, 89373, 80070, 42789, 89605 #### [facility] [address] [place] [address], [facility] Oxygen saturation in Blood 59.8 % Low 65.0-75.0 [facility] Comment on above: Performed By: #### 0 0121, 44323, 54558, 73760, 65213 #### [facility] [address] [place] [address], [facility] THB 10.9 g/dL Normal [facility] Comment on above: Performed By: #### 0 0121, 47169, 27323, 57447, 25598 #### [facility] [address] [place] [address], [facility] COHB 2 % Normal [facility] Comment on above: Performed By: #### 0 0121, 59104, 53602, 82845, 63222 #### [facility] [address] [place] [address], [facility] METHB 1 % Normal [facility] Comment on above: Performed By: #### 0 0121, 09821, 03473, 62458, 30531 #### [facility] [address] [place] [address], [facility] Oxygen saturation in Blood 70.2 % Normal 65.0-75.0 [facility] Comment on above: Performed By: #### 0 0121, 82841, 83053, 38934, 77857 #### [facility] [address] [place] [address], [facility] THB 11.5 g/dL Normal [facility] Comment on above: Performed By: #### 0 0121, 44432, 96291, 61688, 47417 #### [facility] [address] [place] [address], [facility] MAGNESIUM BLOODon 03-21-2019 Magnesium [Mass/Vol] 2.1 mg/dL Normal 1.9-2.7 [facility] Comment on above: Order Comment: << On admission If not done in ED>> No: Do not add to previous draw Performed By: #### 0 0121, 22449, 71574, 77082, 72088 #### [facility] [address] [place] [address], [place] Magnesium [Mass/Vol] 2.1 mg/dL Normal 1.9-2.7 [facility] Comment on above: Order Comment: << On admission If not done in ED>> No: Do not add to previous draw Performed By: #### 0 0121, 07560, 81270, 38325, 78936 #### [facility] [address] [place] [address], [place] Magnesium [Mass/Vol] 2.2 mg/dL Normal 1.9-2.7 [facility] Comment on above: Order Comment: << On admission If not done in ED>> No: Do not add to previous draw Performed By: #### 0 0121, 47104, 71863, 86344, 14285 #### [facility] [address] [place] [address], [place] POC GLUCOSE LABon 03-21-2019 Glucose [Mass/Vol] 107 mg/dL High 70-100 [facility] Comment on above: Performed By: #### 0 0121, 06907, 94531, 98675, 20491 #### [facility] [address] [place] [address], [place] Glucose [Mass/Vol] 103 mg/dL High 70-100 [facility] Comment on above: Performed By: #### 0 0121, 13059, 23703, 33566, 35273 #### [facility] [address] [place] [address], [place] Glucose [Mass/Vol] 112 mg/dL High 70-100 [facility] Comment on above: Performed By: #### 0 0121, 93234, 26359, 23247, 86259 #### [facility] [address] [place] [address], [place] Glucose [Mass/Vol] 127 mg/dL High 70-100 [facility] Comment on above: Performed By: #### 0 0121, 02659, 98681, 82212, 67510 #### [facility] [address] [place] [address], [place] Glucose [Mass/Vol] 95 mg/dL Normal 70-100 [facility] Comment on above: Performed By: #### 0 0121, 85014, 65868, 04412, 86206 #### [facility] [address] [place] [address], [place] Glucose [Mass/Vol] 104 mg/dL High 70-100 [facility] Comment on above: Performed By: #### 0 0121, 70857, 56854, 48105, 22391 #### [facility] [address] [place] [address], [place] Glucose [Mass/Vol] 98 mg/dL Normal 70-100 [facility]: Performed By: #### 0 0121, 83707, 73829, 06695, 46435 #### [facility] [address] [place] [address], [place] Glucose [Mass/Vol] 113 mg/dL High 70-100 [facility] Comment on above: Performed By: #### 0 0121, 39792, 61324, 45100, 89151 #### [facility] [address] [place] [address], [place] Glucose [Mass/Vol] 130 mg/dL High 70-100 [facility] Comment on above: Performed By: #### 0 0121, 02758, 37502, 79995, 60034 #### [facility] [address] [place] [address], [place] Glucose [Mass/Vol] 130 mg/dL High 70-100 [facility] Comment on above: Performed By: #### 0 0121, 29154, 77054, 98785, 57094 #### [facility] [address] [place] [address], [place] Glucose [Mass/Vol] 129 mg/dL High 70-100 [facility] Comment on above: Performed By: #### 0 0121, 09769, 39796, 53801, 23718 #### [facility] [address] [place] [address], [place] Glucose [Mass/Vol] 108 mg/dL High 70-100 [facility] Comment on above: Performed By: #### 0 0121, 76079, 35396, 46167, 20232 #### [facility] [address] [place] [address], [place] Glucose [Mass/Vol] 101 mg/dL High 70-100 [facility] Comment on above: Performed By: #### 0 0121, 33831, 28504, 64973, 48255 #### [facility] [address] [facility] [place] [address], [facility] PORTABLE CHEST 1 VIEWon 03-01 PORTABLE CHEST 1 VIEW [facility] Department of Radiology [address] [place] [id number] ======== Patient Name: TRACIE CRAIN : 1965 Sex: M Age: Race: NA Pt. Location: [id number] Patient Status: I Ordered Date: 03/21/2019 5:00:00 AM Completed Date: 03/21/2019 06:32 AM Requesting Provider: TIMBO BLACK Attending Provider: TMIBO BLACK Report Copy To: Signs & Symptoms: [...] of field of view, in satisfactory position. Snyder-Sher catheter is again seen with tip projecting [...] findings. Electronically signed by:Yenni Osuna. Transcribed by: [email or web address], User Resident: CYNTHIA FINLEY Electronically Signed by: YENNI OSUNA @ 03/22/2019 01:07 PM I personally read this/these film(s) with this resident Normal [facility] Comment on above: Order Comment: << On admission If not done in ED>> No: Do not add to previous draw ARTERIAL BLOOD GAS WITH ICAo n 03-20-2019 BASE EXCESS -4 mmol/L Low -2-3 [facility] Comment on above: Performed By: #### 0 0121, 68012, 41434, 30921, 82964 #### [facility] [address] [place] [address], [facility] DELIVERY SYSTEMS VENTILATOR Normal [facility] Comment on above: Performed By: #### 0 0121, 10367, 50489, 79207, 41138 #### [facility] [address] [place] [address], [place] FIO2 50 % Normal [facility] Comment on above: Performed By: #### 0 0121, 27016, 87113, 93576, 90886 #### [facility] [address] [place] [address], [facility] HCO3 (Bld) [Moles/Vol] 19 mmol/L Low 21-28 [facility] Comment on above: Performed By: #### 0 0121, 61973, 30705, 26785, 66052 #### [facility] [address] [place] [address], [facility] IONIZED CALCIUM 1.06 mmol/L Low 1.13-1.32 [facility] Comment on above: Performed By: #### 0 0121, 43848, 32171, 64435, 19219 #### [facility] [address] [place] [address], [facility] MIN VOLUME 14.2 Normal [facility] Comment on above: Performed By: #### 0 0121, 04447, 61698, 74040, 29478 #### [facility] [address] [place] [address], [place] MODALITY AC-ASSIST CONTROL Normal [facility] Comment on above: Performed By: #### 0 0121, 93442, 19304, 47666, 63321 #### [facility] [address] [place] [address], [place] Oxygen (Bld) [Partial pressure] 82 mm[Hg] Low 83-108 [facility] Comment on above: Performed By: #### 0 0121, 78148, 11156, 89546, 98614 #### [facility] [address] [place] [address], [facility] Oxygen saturation in Blood 94.4 % Normal 94.0-97.0 [facility] Comment on above: Performed By: #### 0 0121, 75706, 35362, 07626, 63776 #### [facility] [address] [place] [address], [facility] PCO2 27 mmHg Low 35-45 [facility] Comment on above: Performed By: #### 0 0121, 55640, 91454, 64805, 80654 #### [facility] [address] [place] [address], [facility] PEEP 8.0 CMH20 Normal [facility] Comment on above: Performed By: #### 0 0121, 10873, 27216, 85616, 01337 #### [facility] [address] [place] [address], [facility] pH (Bld) 7.45 [pH] Normal 7.35-7.45 [facility] Comment on above: Result Comment: KINJAL REYNOSO NOTE: Effective 12/02/18, reference ranges for Respiratory GEM analyzers running arterial blood have been updated to reflect the stationary boiler fireman's published reference ranges. Performed By: #### 0 0121, 92488, 07992, 82078, 66697 #### [facility] [address] [place] [address], [facility] TIDAL VOLUME (VT) CC 700 cc Normal [facility] Comment on above: Performed By: #### 0 0121, 59439, 29694, 46253, 93750 #### [facility] [address] [place] [address], [place] BASE EXCESS -2 mmol/L Normal -2-3 [facility] Comment on above: Performed By: #### 0 0121, 64141, 75122, 67438, 01772 #### [facility] [address] [place] [address], [facility] DELIVERY SYSTEMS MV Normal [facility] Comment on above: Performed By: #### 0 0121, 97241, 29951, 24630, 58679 #### [facility] [address] [place] [address], [place] FIO2 100 % Normal [facility] Comment on above: Performed By: #### 0 0121, 31682, 70675, 09768, 24071 #### [facility] [address] [place] [address], [facility] HCO3 (Bld) [Moles/Vol] 22 mmol/L Normal 21-28 [facility] Comment on above: Performed By: #### 0 0121, 90969, 66420, 89365, 03931 #### [facility] [address] [place] [address], [facility] IONIZED CALCIUM 1.18 mmol/L Normal 1.13-1.32 [facility] Comment on above: Performed By: #### 0 0121, 60261, 04335, 90466, 45328 #### [facility] [address] [place] [address], [facility] MIN VOLUME 13.0 Normal [facility] Comment on above: Performed By: #### 0 0121, 45691, 29028, 17696, 82307 #### [facility] [address] [place] [address], [place] MODALITY AC Normal [facility] Comment on above: Performed By: #### 0 0121, 31999, 61247, 63248, 42968 #### [facility] [address] [place] [address], [place] Oxygen (Bld) [Partial pressure] 109 mm[Hg] Critically high 83-108 [facility] Comment on above: Performed By: #### 0 0121, 17251, 65792, 16514, 00824 #### [facility] [address] [place] [address], [facility] Oxygen saturation in Blood 95.6 % Normal 94.0-97.0 [facility] Comment on above: Performed By: #### 0 0121, 35532, 95266, 42862, 01008 #### [facility] [address] [place] [address], [facility] PCO2 33 mmHg Low 35-45 [facility] Comment on above: Performed By: #### 0 0121, 64251, 20605, 89515, 31284 #### [facility] [address] [place] [address], [facility] PEEP 10.0 CMH20 Normal [facility] Comment on above: Performed By: #### 0 0121, 33205, 57176, 50302, 23258 #### [facility] [address] [place] [address], [facility] PF RATIO 109 mmHg Normal [facility] Comment on above: Performed By: #### 0 0121, 76673, 87031, 54404, 28312 #### [facility] [address] [place] [address], [facility] pH (Bld) 7.43 [pH] Normal 7.35-7.45 [facility] Comment on above: Result Comment: KINJAL REYNOSO NOTE: Effective 12/02/18, reference ranges for Respiratory GEM analyzers running arterial blood have been updated to reflect the stationary boiler fireman's published reference ranges. Performed By: #### 0 0121, 29720, 11043, 99707, 89345 #### [facility] [address] [place] [id number], [facility] TIDAL VOLUME (VT) CC 700 cc Normal [facility] Comment on above: Performed By: #### 0 0121, 57271, 67707, 10402, 07986 #### [facility] [address] [place] [address], [facility] BASE EXCESS -4 mmol/L Low -2-3 [facility] Comment on above: Performed By: #### 0 0121, 41132, 58126, 86122, 89167 #### [facility] [address] [place] [address], [facility] DELIVERY SYSTEMS VENTILATOR Normal [facility] Comment on above: Performed By: #### 0 0121, 24692, 60976, 72983, 52842 #### [facility] [address] [place] [address], [facility] FIO2 100 % Normal [facility] Comment on above: Performed By: #### 0 0121, 15008, 80114, 08817, 21437 #### [facility] [address] [facility] [place] [address], [facility] HCO3 (Bld) [Moles/Vol] 20 mmol/L Low 21-28 [facility] Comment on above: Performed By: #### 0 0121, 12557, 03392, 93915, 25809 #### [facility] [address] [facility] [address], [facility] IONIZED CALCIUM 1.23 mmol/L Normal 1.13-1.32 [facility] Comment on above: Performed By: #### 0 0121, 45370, 24172, 68152, 58590 #### [facility] [address] [facility] [place] [address], [facility] MIN VOLUME 15.1 Normal [facility] Comment on above: Performed By: #### 0 0121, 35854, 82673, 61434, 50034 #### [facility] [address] [place] [address], [facility] MODALITY AC-ASSIST CONTROL Normal [facility] Comment on above: Performed By: #### 0 0121, 48463, 35994, 91195, 96007 #### [facility] [address] [place] [address], [place] Oxygen (Bld) [Partial pressure] 90 mm[Hg] Normal 83-108 [facility] Comment on above: Performed By: #### 0 0121, 04430, 45370, 53164, 70497 #### [facility] [address] [place] [address], [place] Oxygen saturation in Blood 95.1 % Normal 94.0-97.0 [facility] Comment on above: Performed By: #### 0 0121, 50039, 93333, 92232, 27989 #### [facility] [address] [place] [address], [place] PCO2 32 mmHg Low 35-45 [facility] Comment on above: Performed By: #### 0 0121, 75153, 32296, 24530, 80177 #### [facility] [address] [place] [address], [place] PEEP 10.0 CMH20 Normal [facility] Comment on above: Performed By: #### 0 0121, 19400, 85297, 96423, 47003 #### [facility] [address] [place] [address], [place] PF RATIO 900 mmHg Normal [facility] Comment on above: Performed By: #### 0 0121, 12092, 51655, 61411, 77647 #### [facility] [address] [place] [address], [place] pH (Bld) 7.40 [pH] Normal 7.35-7.45 [facility] Comment on above: Result Comment: KINJAL REYNOSO NOTE: Effective 12/02/18, reference ranges for Respiratory GEM analyzers running arterial blood have been updated to reflect the stationary boiler fireman's published reference ranges. Performed By: #### 0 0121, 10738, 98361, 69220, 27406 #### [facility] [address] [place] [address], [facility] TIDAL VOLUME (VT) CC 700 cc Normal [facility] Comment on above: Performed By: #### 0 0121, 11148, 16610, 16162, 12807 #### [facility] [address] [place] [address], [facility] BASIC METABOLIC PANELon 06-2 Calcium [Mass/Vol] 8.1 mg/dL Low 8.6-10.3 [facility] Comment on above: Order Comment: << On admission If not done in ED>> No: Do not add to previous draw Performed By: #### 0 0121, 93637, 24999, 04384, 31486 #### [facility] [address] [place] [address], [facility] Chloride [Moles/Vol] 112 mmol/L High 98-107 [facility] Comment on above: Order Comment: << On admission If not done in ED>> No: Do not add to previous draw Performed By: #### 0 0121, 44091, 19776, 07959, 94377 #### [facility] [address] [place] [address], [facility] CO2 [Moles/Vol] 24 mmol/L Normal 21-31 [facility] Comment on above: Order Comment: << On admission If not done in ED>> No: Do not add to previous draw Performed By: #### 0 0121, 99275, 13575, 87837, 21982 #### [facility] [address] [place] [address], [place] Creatinine [Mass/Vol] 0.97 mg/dL Normal 0.70-1.30 [facility] Comment on above: Order Comment: << On admission If not done in ED>> No: Do not add to previous draw Performed By: #### 0 0121, 61796, 38724, 28110, 91503 #### [facility] [address] [place] [address], [facility] GFR/1.73 sq M predicted among blacks MDRD (S/P/Bld) [Vol rate/Area] mL/min/{1.73_m2} Normal >60 [facility] Comment on above: Order Comment: << On admission If not done in ED>> No: Do not add to previous draw Performed By: #### 0 0121, 08794, 69496, 86023, 09729 #### [facility] [address] [place] [address], [facility] GFR/1.73 sq M predicted among non-blacks MDRD (S/P/Bld) [Vol rate/Area] mL/min/{1.73_m2} Normal >60 [facility] Comment on above: Order Comment: << On admission If not done in ED>> No: Do not add to previous draw Performed By: #### 0 0121, 44146, 07667, 17249, 89777 #### [facility] [address] [place] [address], [facility] Glucose [Mass/Vol] 134 mg/dL High 70-100 [facility] Comment on above: Order Comment: << On admission If not done in ED>> No: Do not add to previous draw Performed By: #### 0 0121, 81890, 63509, 92498, 87922 #### [facility] [address] [place] [address], [facility] Potassium [Moles/Vol] 3.9 mmol/L Normal 3.5-5.1 [facility] Comment on above: Order Comment: << On admission If not done in ED>> No: Do not add to previous draw Performed By: #### 0 0121, 82216, 72703, 76953, 24446 #### [facility] [address] [place] [address], [facility] Sodium [Moles/Vol] 142 mmol/L Normal 136-145 [facility] Comment on above: Order Comment: << On admission If not done in ED>> No: Do not add to previous draw Performed By: #### 0 0121, 66168, 88029, 55065, 64309 #### [facility] [address] [place] [address], [place] Urea nitrogen [Mass/Vol] 16 mg/dL Normal 7-25 [facility] Comment on above: Order Comment: << On admission If not done in ED>> No: Do not add to previous draw Performed By: #### 0 0121, 80999, 52915, 69508, 12117 #### [facility] [address] [place] [address], [place] Chloride [Moles/Vol] 113 mmol/L High 98-107 [facility] Comment on above: Order Comment: << On admission If not done in ED>> No: Do not add to previous draw Performed By: #### 0 0121, 53990, 51437, 49663, 49496 #### [facility] [address] [place] [address], [place] CO2 [Moles/Vol] 23 mmol/L Normal 21-31 [facility] Comment on above: Order Comment: << On admission If not done in ED>> No: Do not add to previous draw Performed By: #### 0 0121, 71684, 46773, 89547, 55789 #### [facility] [address] [place] [address], [place] Creatinine [Mass/Vol] 1.11 mg/dL Normal 0.70-1.30 [facility] Comment on above: Order Comment: << On admission If not done in ED>> No: Do not add to previous draw Performed By: #### 0 0121, 56804, 98402, 08183, 15647 #### [facility] [address] [place] [address], [place] Glucose [Mass/Vol] 157 mg/dL High 70-100 [facility] Comment on above: Order Comment: << On admission If not done in ED>> No: Do not add to previous draw Performed By: #### 0 0121, 95483, 76993, 42710, 54897 #### [facility] [address] [place] [address], [place] Potassium [Moles/Vol] 4.0 mmol/L Normal 3.5-5.1 [facility] Comment on above: Order Comment: << On admission If not done in ED>> No: Do not add to previous draw Performed By: #### 0 0121, 31160, 54204, 08239, 47163 #### [facility] [address] [place] [address], [place] Sodium [Moles/Vol] 143 mmol/L Normal 136-145 [facility] Comment on above: Order Comment: << On admission If not done in ED>> No: Do not add to previous draw Performed By: #### 0 0121, 69787, 98177, 21493, 29744 #### [facility] [address] [place] [address], [place] Urea nitrogen [Mass/Vol] 17 mg/dL Normal 7-25 [facility] Comment on above: Order Comment: << On admission If not done in ED>> No: Do not add to previous draw Performed By: #### 0 0121, 77610, 79550, 31158, 24422 #### [facility] [address] [place] [address], [place] Calcium [Mass/Vol] 8.7 mg/dL Normal 8.6-10.3 [facility] Comment on above: Order Comment: << On admission If not done in ED>> No: Do not add to previous draw Performed By: #### 0 0121, 52621, 17972, 39448, 96552 #### [facility] [address] [place] [address], [place] CO2 [Moles/Vol] 22 mmol/L Normal 21-[address] [facility] Comment on above: Order Comment: << On admission If not done in ED>> No: Do not add to previous draw Performed By: #### 0 0121, 06811, 56836, 45726, 32621 #### [facility] [address] [place] [address], [facility] Creatinine [Mass/Vol] 1.00 mg/dL Normal 0.70-1.30 [facility] Comment on above: Order Comment: << On admission If not done in ED>> No: Do not add to previous draw Performed By: #### 0 0121, 55475, 87595, 59348, 92033 #### [facility] [address] [place] [address], [facility] Glucose [Mass/Vol] 126 mg/dL High 70-100 [facility] Comment on above: Order Comment: << On admission If not done in ED>> No: Do not add to previous draw Performed By: #### 0 0121, 59432, 89878, 29288, 97101 #### [facility] [address] [place] [address], [facility] Potassium [Moles/Vol] 4.1 mmol/L Normal 3.5-5.1 [facility] Comment on above: Order Comment: << On admission If not done in ED>> No: Do not add to previous draw Performed By: #### 0 0121, 35365, 36221, 65439, 62350 #### [facility] [address] [place] [address], [place] CBC COMPLETE BLOOD COUNTon 0 - Erythrocyte distribution width (RBC) [Ratio] 13.2 % Normal 11.5-15.0 [facility] Comment on above: Order Comment: << On admission If not done in ED>> No: Do not add to previous draw Performed By: #### 0 0121, 42878, 85012, 14730, 24799 #### [facility] [address] Hematocrit (Bld) [Volume fraction] 39.8 % Normal 39.0-50.0 [facility] Comment on above: Order Comment: << On admission If not done in ED>> No: Do not add to previous draw Performed By: #### 0 0121, 82096, 70461, 29628, 33995 #### [facility] [address] Hemoglobin (Bld) [Mass/Vol] 12.8 g/dL Low 13.0-17.0 [facility] Comment on above: Order Comment: << On admission If not done in ED>> No: Do not add to previous draw Performed By: #### 0 0121, 96964, 68282, 00262, 41992 #### [facility] [address] MCH (RBC) [Entitic mass] 28.8 pg Normal 27.0-33.0 [facility] Comment on above: Order Comment: << On admission If not done in ED>> No: Do not add to previous draw Performed By: #### 0 0121, 74526, 32511, 38337, 88496 #### [facility] [address] [facility] MCHC (RBC) [Mass/Vol] 32.2 g/dL Normal 32.0-35.0 [facility] Comment on above: Order Comment: << On admission If not done in ED>> No: Do not add to previous draw Performed By: #### 0 0121, 25082, 83977, 47868, 02413 #### [facility] [address] [place] [address], [facility] MCV (RBC) [Entitic vol] 89.4 fL Normal 82.0-98.0 [facility] Comment on above: Order Comment: << On admission If not done in ED>> No: Do not add to previous draw Performed By: #### 0 0121, 20806, 30975, 33673, 15913 #### [facility] [address] [place] [address], [facility] Nucleated RBC/100 WBC (Bld) [Ratio] 0 % Normal 0-0 [facility] Comment on above: Order Comment: << On admission If not done in ED>> No: Do not add to previous draw Performed By: #### 0 0121, 41691, 82983, 49318, 38862 #### [facility] [address] [place] [address], [facility] PLAT CNT 144 10*3/uL Low 150-400 [facility] Comment on above: Order Comment: << On admission If not done in ED>> No: Do not add to previous draw Performed By: #### 0 0121, 21163, 00644, 58331, 71384 #### [facility] [address] [facility] [place] [address], [facility] RBC (Bld) [#/Vol] 4.45 10*6/uL Normal 4.20-5.70 [facility] Comment on above: Order Comment: << On admission If not done in ED>> No: Do not add to previous draw Performed By: #### 0 0121, 00018, 43437, 87134, 61568 #### [facility] [address] [place] [address], [facility] WBC (Bld) [#/Vol] 18.51 10*3/uL High 4.00-10.60 [facility] Comment on above: Order Comment: << On admission If not done in ED>> No: Do not add to previous draw Performed By: #### 0 0121, 90149, 86489, 99436, 24345 #### [facility] [address] [place] [address], [facility] Erythrocyte distribution width (RBC) [Ratio] 13.1 % Normal 11.5-15.0 [facility] Comment on above: Order Comment: << On admission If not done in ED>> No: Do not add to previous draw Performed By: #### 0 0121, 04600, 87343, 19860, 42068 #### [facility] [address] [place] [address], [facility] Hematocrit (Bld) [Volume fraction] 43.9 % Normal 39.0-50.0 [facility] Comment on above: Order Comment: << On admission If not done in ED>> No: Do not add to previous draw Performed By: #### 0 0121, 70783, 34411, 03418, 64358 #### [facility] [address] [place] [address], [facility] Hemoglobin (Bld) [Mass/Vol] 13.9 g/dL Normal 13.0-17.0 [facility] Comment on above: Order Comment: << On admission If not done in ED>> No: Do not add to previous draw Performed By: #### 0 0121, 28196, 24982, 03978, 25884 #### [facility] [address] [place] [address], [facility] MCH (RBC) [Entitic mass] 28.7 pg Normal 27.0-33.0 [facility] Comment on above: Order Comment: << On admission If not done in ED>> No: Do not add to previous draw Performed By: #### 0 0121, 40923, 98907, 13858, 97257 #### [facility] [address] [place] [address], [facility] MCHC (RBC) [Mass/Vol] 31.7 g/dL Low 32.0-35.0 [facility] Comment on above: Order Comment: << On admission If not done in ED>> No: Do not add to previous draw Performed By: #### 0 0121, 17842, 67886, 79137, 83300 #### [facility] [address] [place] [address], [facility] MCV (RBC) [Entitic vol] 90.5 fL Normal 82.0-98.0 [facility] Comment on above: Order Comment: << On admission If not done in ED>> No: Do not add to previous draw Performed By: #### 0 0121, 19165, 40458, 74591, 25991 #### [facility] [address] [place] [address], [facility] PLAT CNT 185 10*3/uL Normal 150-400 [facility] Comment on above: Order Comment: << On admission If not done in ED>> No: Do not add to previous draw Performed By: #### 0 0121, 74461, 24622, 35280, 92244 #### [facility] [address] [place] [address], [facility] RBC (Bld) [#/Vol] 4.85 10*6/uL Normal 4.20-5.70 [facility] Comment on above: Order Comment: << On admission If not done in ED>> No: Do not add to previous draw Performed By: #### 0 0121, 85461, 68102, 31225, 31368 #### [facility] [address] [place] [address], [facility] WBC (Bld) [#/Vol] 19.37 10*3/uL High 4.00-10.60 [facility] Comment on above: Order Comment: << On admission If not done in ED>> No: Do not add to previous draw Performed By: #### 0 0121, 31808, 41577, 34547, 47649 #### [facility] [address] [place] [address], [facility] Hematocrit (Bld) [Volume fraction] 42.3 % Normal 39.0-50.0 [facility] Comment on above: Order Comment: << On admission If not done in ED>> No: Do not add to previous draw Performed By: #### 0 0121, 53083, 12104, 30086, 02418 #### [facility] [address] [facility] [place] Hemoglobin (Bld) [Mass/Vol] 14.0 g/dL Normal 13.0-17.0 [facility] Comment on above: Order Comment: << On admission If not done in ED>> No: Do not add to previous draw Performed By: #### 0 0121, 00753, 46239, 97366, 15448 #### [facility] [address] MCH (RBC) [Entitic mass] 29.2 pg Normal 27.0-33.0 [facility] Comment on above: Order Comment: << On admission If not done in ED>> No: Do not add to previous draw Performed By: #### 0 0121, 92343, 90144, 27306, 09582 #### [facility] [address] MCHC (RBC) [Mass/Vol] 33.1 g/dL Normal 32.0-35.0 [facility] Comment on above: Order Comment: << On admission If not done in ED>> No: Do not add to previous draw Performed By: #### 0 0121, 67151, 86663, 87425, 61320 #### [facility] [address] MCV (RBC) [Entitic vol] 88.3 fL Normal 82.0-98.0 [facility] Comment on above: Order Comment: << On admission If not done in ED>> No: Do not add to previous draw Performed By: #### 0 0121, 85559, 51064, 22260, 53845 #### [facility] [address] [place] [address], [facility] PLAT CNT 169 10*3/uL Normal 150-400 [facility] Comment on above: Order Comment: << On admission If not done in ED>> No: Do not add to previous draw Performed By: #### 0 0121, 18801, 77698, 03370, 21431 #### [facility] [address] [place] [address], [place] RBC (Bld) [#/Vol] 4.79 10*6/uL Normal 4.20-5.70 [facility] Comment on above: Order Comment: << On admission If not done in ED>> No: Do not add to previous draw Performed By: #### 0 0121, 01440, 67925, 69014, 47762 #### [facility] [address] [place] [address], [facility] WBC (Bld) [#/Vol] 19.78 10*3/uL High 4.00-10.60 [facility] Comment on above: Order Comment: << On admission If not done in ED>> No: Do not add to previous draw Performed By: #### 0 0121, 29607, 13039, 28824, 38693 #### [facility] [address] [place] [address], [facility] COOXIMETRYon 03-20-2019 COHB 2 % Normal [facility] Comment on above: Performed By: #### 0 0121, 05409, 27600, 06834, 45282 #### [facility] [address] [place] [address], [facility] METHB 0 % Normal [facility] Comment on above: Performed By: #### 0 0121, 12108, 69337, 04049, 78915 #### [facility] [address] [place] [address], [place] Oxygen saturation in Blood 68.0 % Normal 65.0-75.0 [facility] Comment on above: Performed By: #### 0 0121, 74106, 97267, 35900, 64744 #### [facility] [address] [place] [address], [place] THB 13.2 g/dL Normal [facility] Comment on above: Performed By: #### 0 0121, 07402, 60602, 80765, 14935 #### [facility] [address] [facility] [place] [address], [facility] CPK-MB PROFILEon 03-20-2019 CK [Catalytic activity/Vol] 2914 U/L Critically high 30-223 [facility] Comment on above: Order Comment: << On admission If not done in ED>> No: Do not add to previous draw Performed By: #### 0 0121, 16964, 86259, 47394, 01129 #### [facility] [address] CK.MB [Mass/Vol] 3.8 ng/mL Critically high 0.0-1.9 [facility] Comment on above: Order Comment: << On admission If not done in ED>> No: Do not add to previous draw Result Comment: M-CR ITICAL RESULT(S) REVIEWED, CALLED TO AND READ BACK BY DAKOTAH MONTANO RN AT 0550 Performed By: #### 0 0121, 49492, 32190, 88273, 25208 #### [facility] [address] CK.MB [Mass/Vol] 111.1 ng/mL High 0.0-5.0 [facility] Comment on above: Order Comment: << On admission If not done in ED>> No: Do not add to previous draw Result Comment: IF T OTAL CK <200 U/L AND: 1. CKMB IS 5-10 NG/ML----BORDERLINE 2. CKMB IS >10 NG/ML----INDICATIVE OF MD OR IF TOTAL CK >200 U/L AND CKMB INDEX >1.9----INDICATIVE OF MD Performed By: #### 0 0121, 95303, 20628, 95732, 77509 #### [facility] [address] [place] [address], [facility] LACTATE BLOODon 03-20-2019 Lactate [Moles/Vol] 1.9 mmol/L Normal 0.5-2.2 [facility] Comment on above: Order Comment: << On admission If not done in ED>> No: Do not add to previous draw Performed By: #### 0 0121, 98253, 04436, 98391, 41669 #### [facility] [address] [place] [address], [facility] Lactate [Moles/Vol] 3.1 mmol/L Critically high 0.5-2.2 [facility] Comment on above: Order Comment: << On admission If not done in ED>> No: Do not add to previous draw Result Comment: M-[place] EVIOUS CRITICAL RESULT Performed By: #### 0 0121, 29095, 57719, 23151, 10727 #### [facility] [address] [place] [address], [facility] Lactate [Moles/Vol] 2.7 mmol/L Critically high 0.5-2.2 [facility] Comment on above: Order Comment: << On admission If not done in ED>> No: Do not add to previous draw Result Comment: M-[place] EVIOUS CRITICAL RESULT Performed By: #### 0 0121, 94283, 03691, 41330, 17701 #### [facility] [address] [place] [address], [facility] MAGNESIUM BLOODon 03-20-2019 Magnesium [Mass/Vol] 2.1 mg/dL Normal 1.9-2.7 [facility] Comment on above: Order Comment: << On admission If not done in ED>> No: Do not add to previous draw Performed By: #### 0 0121, 39896, 22836, 15079, 84667 #### [facility] [address] [place] [address], [facility] Magnesium [Mass/Vol] 2.3 mg/dL Normal 1.9-2.7 [facility] Comment on above: Order Comment: << On admission If not done in ED>> No: Do not add to previous draw Performed By: #### 0 0121, 15700, 01213, 14231, 37227 #### [facility] [address] [place] [address], [facility] Magnesium [Mass/Vol] 2.4 mg/dL Normal 1.9-2.7 [facility] Comment on above: Order Comment: << On admission If not done in ED>> No: Do not add to previous draw Performed By: #### 0 0121, 97603, 94197, 19288, 42902 #### [facility] [address] [place], [place] [address] [place] [address] Operative Reporton 9 Operative Report MR#: [id number] I [facility] Pt. Name: Tracie Crain Room #: [id number] Discharge Date: Birthdate: 1965 OPERATIVE REPORT DATE [...] Black MD Date Trans: 03/20/2019 02:34 A/bessie [id number] cc: Titus Villegas M.D. [address], [facility] [place] [address] [place] [facility] Operative Report MR#: [id number] I [facility] Pt. Name: Tracie Crain Room #: [id number] Discharge Date: Birthdate: 1965 OPERATIVE REPORT DATE [...] and posteromedial papillary muscle. These were 4.0 [place] stitches and they were brought out in [...] Black MD Date Trans: 03/20/2019 02:21 A/bessie [id number] cc: Titus Villegas M.D. [address] [facility] [address] [facility] GLUCOSE LABon 03-20-2019 Glucose [Mass/Vol] 117 mg/dL High 70-100 [facility] Comment on above: Performed By: #### 0 0121, 61958, 82210, 82348, 82510 #### [facility] [address] [place] [address], [place] Glucose [Mass/Vol] 114 mg/dL High 70-100 [facility] Comment on above: Performed By: #### 0 0121, 28277, 64224, 88006, 44219 #### [facility] [address] [place] [address], [place] Glucose [Mass/Vol] 117 mg/dL High 70-100 [facility] Comment on above: Performed By: #### 0 0121, 85713, 89647, 92121, 97609 #### [facility] [address] [place] [address], [place] Glucose [Mass/Vol] 99 mg/dL Normal 70-100 [facility] above: Performed By: #### 0 0121, 46264, 02518, 31246, 96539 #### [facility] [address] [place] [address], [place] Glucose [Mass/Vol] 125 mg/dL High 70-100 [facility] Comment on above: Performed By: #### 0 0121, 30926, 66559, 70188, 42564 #### [facility] [address] [place] [address], [place] Glucose [Mass/Vol] 102 mg/dL High 70-100 [facility] Comment on above: Performed By: #### 0 0121, 75897, 98287, 41511, 76014 #### [facility] [address] [place] [address], [place] Glucose [Mass/Vol] 97 mg/dL Normal 70-100 [facility] [place] [facility] Comment on above: Performed By: #### 0 0121, 61193, 39155, 32356, 35149 #### [facility] [address] [place] [address], [place] Glucose [Mass/Vol] 102 mg/dL High 70-100 [facility] Comment on above: Performed By: #### 0 0121, 16334, 50892, 75284, 64019 #### [facility] [address] [place] [address], [place] Glucose [Mass/Vol] 124 mg/dL High 70-100 [facility] Comment on above: Performed By: #### 0 0121, 62037, 78207, 73341, 20809 #### [facility] [address] [place] [address], [place] Glucose [Mass/Vol] 112 mg/dL High 70-100 [facility] Comment on above: Order Comment: << On admission If not done in ED>> No: Do not add to previous draw Performed By: #### 0 0121, 99854, 74156, 79767, 48865 #### [facility] [address] [place] [address], [place] Glucose [Mass/Vol] 129 mg/dL High 70-100 [facility] Comment on above: Performed By: #### 0 0121, 56789, 31912, 17572, 44115 #### [facility] [address] [place] [address], [place] Glucose [Mass/Vol] 122 mg/dL High 70-100 [facility] Comment on above: Performed By: #### 0 0121, 09543, 31822, 53296, 47462 #### [facility] [address] [place] [address], [place] Glucose [Mass/Vol] 133 mg/dL High 70-100 [facility] Comment on above: Performed By: #### 0 0121, 09116, 67812, 07095, 75144 #### [facility] [address] [facility] [address], [facility] Glucose [Mass/Vol] 130 mg/dL High 70-100 [facility] Comment on above: Performed By: #### 5 7307 #### [facility] [address] [facility] [place] [address], [facility] Glucose [Mass/Vol] 142 mg/dL High 70-100 [facility] Comment on above: Performed By: #### 5 7307 #### [facility] [address] [place] [address], [facility] PORTABLE CHEST 1 VIEWon 03-01 PORTABLE CHEST 1 VIEW [facility] Department of Radiology [address] [place] [phone] ======== Patient Name: TRACIE CRAIN : 1965 Sex: M Age: Race: NA Pt. Location: [id number] Patient Status: I Ordered Date: 03/20/2019 8:05:00 [...] tube is 7 cm from the loki. Snyder-Sher catheter with tip projecting over the pulmonary [...] findings. Electronically signed by:Yenni Osuna. Transcribed by: [email or web address], User Resident: ANAI ALVARADO Electronically Signed by: YENNI OSUNA @ 03/22/2019 11:07 AM I personally read this/these film(s) with this resident Normal [facility] Comment on above: Order Comment: << On admission If not done in ED>> No: Do not add to previous draw PORTABLE CHEST 1 VIEW [facility] Department of Radiology [address] [place] [phone] ======== Patient Name: BEMENT, TRACIE : 1965 Sex: M Age: Race: NA Pt. Location: [id number] Patient Status: I Ordered Date: 03/20/2019 5:00:00 [...] tube is 7 cm from the loki. Snyder-Sher catheter with tip projecting over the pulmonary [...] findings. Electronically signed by:Divya Collins. Transcribed by: [email or web address], User Resident: ANAI ALVARADO Electronically Signed by: DIVYA COLLINS @ 03/20/2019 11:01 AM I personally read this/these film(s) with this resident Normal [facility] Comment on above: Order Comment: << On admission If not done in ED>> No: Do not add to previous draw PROTHROMBIN TIMEon 9 INR Coag (PPP) [Relative time] 1.37 {INR} High 0.91-1.16 [facility] Comment on above: Order Comment: [...] CHEST 1995;108:231S-246S. Performed By: #### 0 0121, 26581, 09845, 69817, 97584 #### [facility] [address] [place] [address], [facility] PT Coag (PPP) [Time] 16.9 s High 12.3-14.8 [facility] Comment on above: Order Comment: << On admission If not done in ED>> No: Do not add to previous draw Result Comment: ALL RESULTS MUST BE INTERPRETED WITH RESPECT TO BLOOD DRAWING ARTIFACT OR DILUTION ERROR OF ANTICOAGULANT AT THE TIME OF SAMPLING. Performed By: #### 0 0121, 31713, 62965, 92364, 97295 #### [facility] [address] [place] [id number], [facility] ACTIVATED CLOTTING TIMEon ACTIVATED CLOTTING TIME 115 sec Normal 82-152 [facility] Comment on above: Performed By: #### 8 5123, 92295 #### [facility] [address] [place] [address], [place] ACTIVATED CLOTTING TIME 508 sec High 82-152 [facility] Comment on above: Performed By: #### 8 5123, 67687 #### [facility] [address] [place] [address], [place] ACTIVATED CLOTTING TIME 508 sec High 82-152 [facility] Comment on above: Performed By: #### 8 5123, 19597 #### [facility] [address] [place] [address], [place] ACTIVATED CLOTTING TIME 610 sec High 82-152 [facility] Comment on above: Performed By: #### 8 5123, 97808 #### [facility] [address] [place] [address], [place] ACTIVATED CLOTTING TIME 621 sec High 82-152 [facility] Comment on above: Performed By: #### 8 5123, 44578 #### [facility] [address] [place] [address], [place] ACTIVATED CLOTTING TIME 660 sec High 82-152 [facility] Comment on above: Performed By: #### 8 5123, 03235 #### [facility] [address] [place] [address], [place] ACTIVATED CLOTTING TIME 508 sec High 82-152 [facility] Comment on above: Performed By: #### 8 5123, 80371 #### [facility] [address] [place] [address], [place] ACTIVATED CLOTTING TIME 514 sec High 82-152 [facility] Comment on above: Performed By: #### 0 0121, 85695, 39682, 14137, 17746 #### [facility] [address] [place] [address], [place] ACTIVATED CLOTTING TIME 514 sec High 82-152 [facility] Comment on above: Performed By: #### 0 0121, 29857, 53927, 01530, 51927 #### [facility] [address] [place] [address], [facility] ACTIVATED CLOTTING TIME 502 sec High 82-152 [facility] Comment on above: Performed By: #### 0 0121, 29056, 55053, 87199, 24819 #### [facility] [address] [place] [address], [facility] ACTIVATED CLOTTING TIME 473 sec High 82-152 [facility] Comment on above: Performed By: #### 0 0121, 35275, 51271, 65864, 83791 #### [facility] [address] [place] [address], [facility] ACTIVATED CLOTTING TIME 508 sec High 82-152 [facility] Comment on above: Performed By: #### 0 0121, 41021, 86700, 51888, 75043 #### [facility] [address] [place], [place] [address] ACTIVATED CLOTTING TIME 115 sec Normal 82-152 [facility] Comment on above: Performed By: #### 0 0121, 75760, 02234, 58575, 33356 #### [facility] [address] APTTon 03-19-2019 aPTT Coag (Bld) [Time] 28.6 s Normal 25.0-35.0 [facility] Comment on above: Result Comment: ALL [...] THIS PURPOSE. Performed By: #### 8 5123, 01495 #### [facility] [address] aPTT Coag (Bld) [Time] 33.6 s Normal 25.0-35.0 [facility] Comment on above: Order Comment: If [...] THIS PURPOSE. Performed By: #### 0 0121, 61717, 97847, 76427, 77742 #### [facility] [address] ARTERIAL BLOOD GAS W/COOXon 03-19-2019 BASE EXCESS -8 mmol/L Low -2-3 [facility] Comment on above: Performed By: #### 8 933, 33586 ####[facility] [facility] COHB 2.6 % High 0.0-1.5 [facility] Comment on above: Performed By: #### 8 031, 90360 ####[facility] [facility].[address] DELIVERY SYSTEMS VENT Normal [facility] Comment on above: Performed By: #### 8 763, 96534 ####[facility] [facility] [place] [address], [facility] FIO2 100 % Normal [facility] Comment on above: Performed By: #### 8 798, 26395 ####[facility] [facility] [place] [address], [facility] HCO3 (Bld) [Moles/Vol] 19 mmol/L Low 21-28 [facility] Comment on above: Performed By: #### 8 4511, 65941 ####[facility] [place] [address], [place] METHB 0.8 % Normal 0.0-1.5 [facility] Comment on above: Performed By: #### 8 451, 10155 ####[facility] [place] [address], [place] MIN VOLUME 11.6 Normal [facility] Comment on above: Performed By: #### 8 582, 15402 ####[facility] [place] [address], [place] MODALITY AC Normal [facility] Comment on above: Performed By: #### 8 984, 99523 ####[facility] [place] [address], [place] Oxygen (Bld) [Partial pressure] 61 mm[Hg] Low 83-108 [facility] Comment on above: Performed By: #### 8 801, 94666 ####[facility] [place] [address], [place] Oxygen saturation in Blood 88.9 % Low 94.0-97.0 [facility] Comment on above: Performed By: #### 8 822, 61187 ####[facility] [place] [address], [place] PCO2 43 mmHg Normal 35-45 [facility] Comment on above: Performed By: #### 8 374, 90959 ####[facility] [place] [address], [place] PEEP 10.0 CMH20 Normal [facility] Comment on above: Performed By: #### 8 893, 68765 ####[facility] [place] [address], [place] pH (Bld) 7.26 [pH] Low 7.35-7.45 [facility] Comment on above: Result Comment: KINJAL REYNOSO NOTE: Effective 12/02/18, reference ranges for Respiratory GEM analyzers running arterial blood have been updated to reflect the stationary boiler fireman's published reference ranges. Performed By: #### 8 1721, 48842 ####[facility] [place] [address], [facility] THB 14.2 g/dL Normal 12.0-16.3 [facility] Comment on above: Performed By: #### 8 9821, 24142 ####[facility] [place] [address], [place] TIDAL VOLUME (VT) CC 700 cc Normal [facility] Comment on above: Performed By: #### 8 4901, 02900 ####[facility] [place] [address], [facility] ARTERIAL BLOOD GAS WITH ICAo n 03-19-2019 BASE EXCESS -4 mmol/L Low -2-3 [facility] Comment on above: Performed By: #### 5 7307 #### [facility] [address] [place] [address], [facility] DELIVERY SYSTEMS MV Normal [facility] Comment on above: Performed By: #### 5 7307 #### [facility] [address] [place] [address], [place] FIO2 100 % Normal [facility] Comment on above: Performed By: #### 5 7307 #### [facility] [address] [place] [address], [place] HCO3 (Bld) [Moles/Vol] 20 mmol/L Low 21-28 [facility] Comment on above: Performed By: #### 5 7307 #### [facility] [address] [place] [address], [place] IONIZED CALCIUM 1.21 mmol/L Normal 1.13-1.32 [facility] Comment on above: Performed By: #### 5 7307 #### [facility] [address] [place] [address], [place] MIN VOLUME 13.6 Normal [facility] Comment on above: Performed By: #### 5 7307 #### [facility] [address] [place] [address], [place] MODALITY AC Normal [facility] Comment on above: Performed By: #### 5 7307 #### [facility] [address] [place] [address], [place] Oxygen (Bld) [Partial pressure] 74 mm[Hg] Low 83-108 [facility] Comment on above: Performed By: #### 5 7307 #### [facility] [address] [place] [address], [place] Oxygen saturation in Blood 93.5 % Low 94.0-97.0 [facility] Comment on above: Performed By: #### 5 7307 #### [facility] [address] [place] [address], [place] PCO2 33 mmHg Low 35-45 [facility] Comment on above: Performed By: #### 5 7307 #### [facility] [address] [place] [address], [place] PEEP 10.0 CMH20 Normal [facility] Comment on above: Performed By: #### 5 7307 #### [facility] [address] [place] [address], [place] PF RATIO 74 mmHg Normal [facility] Comment on above: Performed By: #### 5 7307 #### [facility] [address] [place] [address], [place] pH (Bld) 7.39 [pH] Normal 7.35-7.45 [facility] Comment on above: Result Comment: KINJAL REYNOSO NOTE: Effective 12/02/18, reference ranges for Respiratory GEM analyzers running arterial blood have been updated to reflect the stationary boiler fireman's published reference ranges. Performed By: #### 5 7307 #### [facility] [address] TIDAL VOLUME (VT) CC 700 cc Normal [facility] Comment on above: Performed By: #### 5 7307 #### [facility] [address] [place] [address], [facility] BASE EXCESS -7 mmol/L Low -2-3 [facility] Comment on above: Order Comment: R/O P ulmonary Edema Performed By: #### 8 2971, 38029 ####[facility] [facility].[address] DELIVERY SYSTEMS MV Normal [facility] Comment on above: Order Comment: R/O P ulmonary Edema Performed By: #### 8 918, 80244 ####[facility] [facility].[address] FIO2 100 % Normal [facility] Comment on above: Order Comment: R/O P ulmonary Edema Performed By: #### 8 6951, 66984 ####[facility] [facility].[address] HCO3 (Bld) [Moles/Vol] 21 mmol/L Normal 21-28 [facility] Comment on above: Order Comment: R/O P ulmonary Edema Performed By: #### 8 6181, 65824 ####[facility] IONIZED CALCIUM 1.36 mmol/L High 1.13-1.32 [facility] Comment on above: Order Comment: R/O P ulmonary Edema Performed By: #### 8 3151, 86302 ####[facility] [facility] [place] [address], [facility] MIN VOLUME 13.0 Normal [facility] Comment on above: Order Comment: R/O P ulmonary Edema Performed By: #### 8 4511, 81443 ####[facility] [place] [address], [facility] MODALITY SIMV Normal [facility] Comment on above: Order Comment: R/O P ulmonary Edema Performed By: #### 8 4511, 83548 ####[facility] [place] [address], [facility] Oxygen (Bld) [Partial pressure] 63 mm[Hg] Low 83-108 [facility] Comment on above: Order Comment: R/O P ulmonary Edema Performed By: #### 8 4511, 56756 ####[facility] [place] [address], [facility] Oxygen saturation in Blood 89.3 % Low 94.0-97.0 [facility] Comment on above: Order Comment: R/O P ulmonary Edema Performed By: #### 8 4511, 50068 ####[facility] [place] [address], [facility] PCO2 46 mmHg High 35-45 [facility] Comment on above: Order Comment: R/O P ulmonary Edema Performed By: #### 8 4511, 78753 ####[facility] [place] [address], [place] PEEP 8.0 CMH20 Normal [facility] Comment on above: Order Comment: R/O P ulmonary Edema Performed By: #### 8 4511, 63131 ####[facility] [place] [address], [place] PF RATIO 63 mmHg Normal [facility] Comment on above: Order Comment: R/O P ulmonary Edema Performed By: #### 8 4511, 95837 ####[facility] [place] [address], [place] pH (Bld) 7.26 [pH] Low 7.35-7.45 [facility] Comment on above: Order Comment: R/O P ulmonary Edema Result Comment: KINJAL REYNOSO NOTE: Effective 12/02/18, reference ranges for Respiratory GEM analyzers running arterial blood have been updated to reflect the stationary boiler fireman's published reference ranges. Performed By: #### 8 4511, 32383 ####[facility] [place] [address], [facility] PRESSURE SUPPORT 5 Normal [facility] Comment on above: Order Comment: R/O P ulmonary Edema Performed By: #### 8 4511, 71656 ####[facility] [facility] [place] [address], [facility] TIDAL VOLUME (VT) CC 600 cc Normal [facility] Comment on above: Order Comment: R/O P ulmonary Edema Performed By: #### 8 0691, 08300 ####[facility] [place] [address], [facility] BASIC METABOLIC PANELon 06-2 0-2018 Calcium [Mass/Vol] 8.6 mg/dL Normal 8.6-10.3 [facility] Comment on above: Order Comment: No: D o not add to previous draw Performed By: #### 5 7307 #### [facility] [address] [place] [address], [place] Chloride [Moles/Vol] 113 mmol/L High 98-107 [facility] Comment on above: Order Comment: No: D o not add to previous draw Performed By: #### 5 7336 #### [facility] [address] [place] [address], [place] CO2 [Moles/Vol] 21 mmol/L Normal 21-31 [facility] Comment on above: Order Comment: No: D o not add to previous draw Performed By: #### 5 7313 #### [facility] [address] [place] [address], [place] Creatinine [Mass/Vol] 1.14 mg/dL Normal 0.70-1.30 [facility] Comment on above: Order Comment: No: D o not add to previous draw Performed By: #### 5 7307 #### [facility] [address] [place] [address], [place] GFR/1.73 sq M predicted among blacks MDRD (S/P/Bld) [Vol rate/Area] mL/min/{1.73_m2} Normal >60 [facility] Comment on above: Order Comment: No: D o not add to previous draw Performed By: #### 5 7307 #### [facility] [address] [place] [address], [place] GFR/1.73 sq M predicted among non-blacks MDRD (S/P/Bld) [Vol rate/Area] mL/min/{1.73_m2} Normal >60 [facility] Comment on above: Order Comment: No: D o not add to previous draw Performed By: #### 5 7307 #### [facility] [address] [place] [address], [place] Glucose [Mass/Vol] 164 mg/dL High 70-100 [facility] Comment on above: Order Comment: No: D o not add to previous draw Performed By: #### 5 7307 #### [facility] [address] [place] [address], [place] Potassium [Moles/Vol] 4.3 mmol/L Normal 3.5-5.1 [facility] Comment on above: Order Comment: No: D o not add to previous draw Performed By: #### 5 7307 #### [facility] [address] [place] [address], [place] Sodium [Moles/Vol] 142 mmol/L Normal 136-145 [facility] Comment on above: Order Comment: No: D o not add to previous draw Performed By: #### 5 7307 #### [facility] [address] [place] [address], [place] Urea nitrogen [Mass/Vol] 19 mg/dL Normal 7-25 [facility] Comment on above: Order Comment: No: D o not add to previous draw Performed By: #### 5 7307 #### [facility] [address] [place] [address], [place] Calcium [Mass/Vol] 9.8 mg/dL Normal 8.6-10.3 [facility] Comment on above: Order Comment: If no t done in ED No: Do not add to previous draw Performed By: #### 8 5123, 90372 #### [facility] [address] [place] [address], [place] Chloride [Moles/Vol] 112 mmol/L High 98-107 [facility] Comment on above: Order Comment: If no t done in ED No: Do not add to previous draw Performed By: #### 8 5123, 51572 #### [facility] [address] [place] [address], [place] CO2 [Moles/Vol] 21 mmol/L Normal 21-31 [facility] Comment on above: Order Comment: If no t done in ED No: Do not add to previous draw Performed By: #### 8 5123, 05475 #### [facility] [address] [place] [address], [place] Creatinine [Mass/Vol] 1.07 mg/dL Normal 0.70-1.30 [facility] Comment on above: Order Comment: If no t done in ED No: Do not add to previous draw Performed By: #### 8 5123, 36298 #### [facility] [address] [place] [address], [place] GFR/1.73 sq M predicted among blacks MDRD (S/P/Bld) [Vol rate/Area] mL/min/{1.73_m2} Normal >60 [facility] Comment on above: Order Comment: If no t done in ED No: Do not add to previous draw Performed By: #### 8 5123, 72283 #### [facility] [address] [place] [address], [place] GFR/1.73 sq M predicted among non-blacks MDRD (S/P/Bld) [Vol rate/Area] mL/min/{1.73_m2} Normal >60 [facility] Comment on above: Order Comment: If no t done in ED No: Do not add to previous draw Performed By: #### 8 5123, 26612 #### [facility] [address] [place] [address], [place] Glucose [Mass/Vol] 147 mg/dL High 70-100 [facility] Comment on above: Order Comment: If no t done in ED No: Do not add to previous draw Performed By: #### 8 5123, 28764 #### [facility] [address] [place] [address], [place] Potassium [Moles/Vol] 3.9 mmol/L Normal 3.5-5.1 [facility] Comment on above: Order Comment: If no t done in ED No: Do not add to previous draw Performed By: #### 8 5123, 50112 #### [facility] [address] [place] [address], [place] Sodium [Moles/Vol] 142 mmol/L Normal 136-145 [facility] Comment on above: Order Comment: If no t done in ED No: Do not add to previous draw Performed By: #### 8 5123, 97728 #### [facility] [address] [place] [address], [place] Urea nitrogen [Mass/Vol] 19 mg/dL Normal 7-25 [facility] Comment on above: Order Comment: If no t done in ED No: Do not add to previous draw Performed By: #### 8 5123, 71973 #### [facility] [address] [place] [address], [place] Calcium [Mass/Vol] 9.5 mg/dL Normal 8.6-10.3 [facility] Comment on above: Order Comment: If no t done in ED No: Do not add to previous draw Performed By: #### 0 0121, 56046, 90297, 39207, 88695 #### [facility] [address] [place] [address], [place] Chloride [Moles/Vol] 105 mmol/L Normal 98-107 [facility] Comment on above: Order Comment: If no t done in ED No: Do not add to previous draw Performed By: #### 0 0121, 69150, 10909, 50596, 11605 #### [facility] [address] [place] [address], [place] CO2 [Moles/Vol] 24 mmol/L Normal 21-31 [facility] Comment on above: Order Comment: If no t done in ED No: Do not add to previous draw Performed By: #### 0 0121, 59380, 98239, 10801, 84497 #### [facility] [address] [place] [address], [place] Creatinine [Mass/Vol] 1.11 mg/dL Normal 0.70-1.30 [facility] Comment on above: Order Comment: If no t done in ED No: Do not add to previous draw Performed By: #### 0 0121, 26151, 75866, 54887, 84845 #### [facility] [address] [place] [address], [place] GFR/1.73 sq M predicted among blacks MDRD (S/P/Bld) [Vol rate/Area] mL/min/{1.73_m2} Normal >60 [facility] Comment on above: Order Comment: If no t done in ED No: Do not add to previous draw Performed By: #### 0 0121, 93164, 23352, 37551, 66198 #### [facility] [address] [place] [address], [place] GFR/1.73 sq M predicted among non-blacks MDRD (S/P/Bld) [Vol rate/Area] mL/min/{1.73_m2} Normal >60 [facility] Comment on above: Order Comment: If no t done in ED No: Do not add to previous draw Performed By: #### 0 0121, 51679, 89138, 07157, 13959 #### [facility] [address] [place] [address], [place] Glucose [Mass/Vol] 89 mg/dL Normal 70-100 [facility] Comment on above: Order Comment: If no t done in ED No: Do not add to previous draw Performed By: #### 0 0121, 04131, 16238, 98150, 58813 #### [facility] [address] [place] [address], [place] Potassium [Moles/Vol] 4.2 mmol/L Normal 3.5-5.1 [facility] Comment on above: Order Comment: If no t done in ED No: Do not add to previous draw Performed By: #### 0 0121, 00418, 44953, 13887, 04158 #### [facility] [address] [place] [address], [place] Sodium [Moles/Vol] 135 mmol/L Low 136-145 [facility] Comment on above: Order Comment: If no t done in ED No: Do not add to previous draw Performed By: #### 0 0121, 30988, 19040, 97333, 81280 #### [facility] [address] [place] [address], [place] Urea nitrogen [Mass/Vol] 17 mg/dL Normal 7-25 [facility] Comment on above: Order Comment: If no t done in ED No: Do not add to previous draw Performed By: #### 0 0121, 44715, 67518, 21628, 16680 #### [facility] [address] CBC COMPLETE BLOOD COUNTon - Erythrocyte distribution width (RBC) [Ratio] 13.0 % Normal 11.5-15.0 [facility] Comment on above: Order Comment: No: D o not add to previous draw Performed By: #### 5 7307 #### [facility] [address] [place] [address], [facility] Hematocrit (Bld) [Volume fraction] 42.7 % Normal 39.0-50.0 [facility] Comment on above: Order Comment: No: D o not add to previous draw Performed By: #### 5 7307 #### [facility] [address] [place] [address], [facility] Hemoglobin (Bld) [Mass/Vol] 14.3 g/dL Normal 13.0-17.0 [facility] Comment on above: Order Comment: No: D o not add to previous draw Performed By: #### 5 7307 #### [facility] [address] [place] [address], [facility] MCH (RBC) [Entitic mass] 29.4 pg Normal 27.0-33.0 [facility] Comment on above: Order Comment: No: D o not add to previous draw Performed By: #### 5 7307 #### [facility] [address] [place] [address], [facility] MCHC (RBC) [Mass/Vol] 33.5 g/dL Normal 32.0-35.0 [facility] Comment on above: Order Comment: No: D o not add to previous draw Performed By: #### 5 7307 #### [facility] [address] [place] [address], [facility] MCV (RBC) [Entitic vol] 87.9 fL Normal 82.0-98.0 [facility] Comment on above: Order Comment: No: D o not add to previous draw Performed By: #### 5 7307 #### [facility] [address] [place] [address], [facility] Nucleated RBC/100 WBC (Bld) [Ratio] 0 % Normal 0-0 [facility] Comment on above: Order Comment: No: D o not add to previous draw Performed By: #### 5 7307 #### [facility] [address] [place] [address], [facility] PLAT CNT 179 10*3/uL Normal 150-400 [facility] Comment on above: Order Comment: No: D o not add to previous draw Performed By: #### 5 7307 #### [facility] [address] [place] [address], [facility] RBC (Bld) [#/Vol] 4.86 10*6/uL Normal 4.20-5.70 [facility] Comment on above: Order Comment: No: D o not add to previous draw Performed By: #### 5 7307 #### [facility] [address] [facility] [place] [address], [facility] WBC (Bld) [#/Vol] 26.36 10*3/uL High 4.00-10.60 [facility] Comment on above: Order Comment: No: D o not add to previous draw Performed By: #### 5 7307 #### [facility] [address] [facility] [place] [address], [facility] Erythrocyte distribution width (RBC) [Ratio] 13.0 % Normal 11.5-15.0 [facility] Comment on above: Order Comment: R/O P ulmonary Edema Performed By: #### 5 0608 ####[facility] [place] [address], [facility] Hematocrit (Bld) [Volume fraction] 47.1 % Normal 39.0-50.0 [facility] Comment on above: Order Comment: R/O P ulmonary Edema Performed By: #### 5 0608 ####[facility] Hemoglobin (Bld) [Mass/Vol] 15.0 g/dL Normal 13.0-17.0 [facility] Comment on above: Order Comment: R/O P ulmonary Edema Performed By: #### 5 0608 ####[facility] MCH (RBC) [Entitic mass] 29.4 pg Normal 27.0-33.0 [facility] Comment on above: Order Comment: R/O P ulmonary Edema Performed By: #### 5 0608 ####[facility] MCHC (RBC) [Mass/Vol] 31.8 g/dL Low 32.0-35.0 [facility] Comment on above: Order Comment: R/O P ulmonary Edema Performed By: #### 5 0608 ####[place] [address] [address] MCV (RBC) [Entitic vol] 92.4 fL Normal 82.0-98.0 [facility] Comment on above: Order Comment: R/O P ulmonary Edema Performed By: #### 5 0608 ####[facility] Nucleated RBC/100 WBC (Bld) [Ratio] 0 % Normal 0-0 [facility] Comment on above: Order Comment: R/O P ulmonary Edema Performed By: #### 5 0608 ####[facility] PLAT CNT 188 10*3/uL Normal 150-400 [facility] Comment on above: Order Comment: R/O P ulmonary Edema Performed By: #### 5 0608 ####[facility] [place] [address], [facility] RBC (Bld) [#/Vol] 5.10 10*6/uL Normal 4.20-5.70 [facility] Comment on above: Order Comment: R/O P ulmonary Edema Performed By: #### 5 0608 ####[facility] [place] [address], [facility] WBC (Bld) [#/Vol] 31.20 10*3/uL High 4.00-10.60 [facility] Comment on above: Order Comment: R/O P ulmonary Edema Performed By: #### 5 0608 ####[facility] [place] [address], [facility] Erythrocyte distribution width (RBC) [Ratio] 13.0 % Normal 11.5-15.0 [facility] Comment on above: Order Comment: If no t done in ED No: Do not add to previous draw Performed By: #### 8 9802, 33520 #### [facility] [address] [place] [address], [place] Hematocrit (Bld) [Volume fraction] 44.2 % Normal 39.0-50.0 [facility] Comment on above: Order Comment: If no t done in ED No: Do not add to previous draw Performed By: #### 8 4724, 40711 #### [facility] [address] [place] [address], [place] Hemoglobin (Bld) [Mass/Vol] 14.4 g/dL Normal 13.0-17.0 [facility] Comment on above: Order Comment: If no t done in ED No: Do not add to previous draw Performed By: #### 8 3083, 41499 #### [facility] [address] [place] [address], [place] MCH (RBC) [Entitic mass] 28.8 pg Normal 27.0-33.[address] [facility] Comment on above: Order Comment: If no t done in ED No: Do not add to previous draw Performed By: #### 8 5123, 42557 #### [facility] [address] [place] [address], [facility] MCHC (RBC) [Mass/Vol] 32.6 g/dL Normal 32.0-35.0 [facility] Comment on above: Order Comment: If no t done in ED No: Do not add to previous draw Performed By: #### 8 5123, 01275 #### [facility] [address] [place] [id number], [facility] MCV (RBC) [Entitic vol] 88.4 fL Normal 82.0-98.0 [facility] Comment on above: Order Comment: If no t done in ED No: Do not add to previous draw Performed By: #### 8 5123, 00350 #### [facility] [address] [place] [address], [facility] Nucleated RBC/100 WBC (Bld) [Ratio] 0 % Normal 0-0 [facility] Comment on above: Order Comment: If no t done in ED No: Do not add to previous draw Performed By: #### 8 5123, 84751 #### [facility] [address] [place] [address], [facility] PLAT CNT 166 10*3/uL Normal 150-400 [facility] Comment on above: Order Comment: If no t done in ED No: Do not add to previous draw Performed By: #### 8 5123, 70746 #### [facility] [address] [place] [id number], [facility] RBC (Bld) [#/Vol] 5.00 10*6/uL Normal 4.20-5.70 [facility] Comment on above: Order Comment: If no t done in ED No: Do not add to previous draw Performed By: #### 8 5123, 05550 #### [facility] [address] [place] [address], [facility] WBC (Bld) [#/Vol] 33.13 10*3/uL High 4.00-10.60 [facility] Comment on above: Order Comment: If no t done in ED No: Do not add to previous draw Performed By: #### 8 5123, 23639 #### [facility] [address] [place] [address], [facility] Erythrocyte distribution width (RBC) [Ratio] 13.0 % Normal 11.5-15.0 [facility] Comment on above: Order Comment: If no t done in ED No: Do not add to previous draw Performed By: #### 0 0121, 35156, 31030, 86323, 09135 #### [facility] [address] [place] [address], [facility] Hematocrit (Bld) [Volume fraction] 55.7 % High 39.0-50.0 [facility] Comment on above: Order Comment: If no t done in ED No: Do not add to previous draw Performed By: #### 0 0121, 86995, 30727, 10693, 96205 #### [facility] [address] [place] [address], [facility] Hemoglobin (Bld) [Mass/Vol] 18.2 g/dL High 13.0-17.0 [facility] Comment on above: Order Comment: If no t done in ED No: Do not add to previous draw Performed By: #### 0 0121, 18244, 77765, 23944, 81376 #### [facility] [address] [place] [address], [facility] MCH (RBC) [Entitic mass] 28.6 pg Normal 27.0-33.0 [facility] Comment on above: Order Comment: If no t done in ED No: Do not add to previous draw Performed By: #### 0 0121, 43712, 44549, 30471, 79895 #### [facility] [address] MCHC (RBC) [Mass/Vol] 32.7 g/dL Normal 32.0-35.0 [facility] Comment on above: Order Comment: If no t done in ED No: Do not add to previous draw Performed By: #### 0 0121, 19839, 24312, 47877, 29023 #### [facility] [address] [place] [address], [facility] MCV (RBC) [Entitic vol] 87.4 fL Normal 82.0-98.0 [facility] Comment on above: Order Comment: If no t done in ED No: Do not add to previous draw Performed By: #### 0 0121, 72047, 61111, 50466, 86109 #### [facility] [address] Nucleated RBC/100 WBC (Bld) [Ratio] 0 % Normal 0-0 [facility] Comment on above: Order Comment: If no t done in ED No: Do not add to previous draw Performed By: #### 0 0121, 89982, 09882, 52681, 05648 #### [facility] [address] [place] [address], [facility] PLAT CNT 288 10*3/uL Normal 150-400 [facility] Comment on above: Order Comment: If no t done in ED No: Do not add to previous draw Performed By: #### 0 0121, 20817, 73436, 28199, 89556 #### [facility] [address] [place] [id number], [facility] RBC (Bld) [#/Vol] 6.37 10*6/uL High 4.20-5.70 [facility] Comment on above: Order Comment: If no t done in ED No: Do not add to previous draw Performed By: #### 0 0121, 31723, 69265, 12728, 95233 #### [facility] [address] [place] [address], [facility] WBC (Bld) [#/Vol] 11.26 10*3/uL High 4.00-10.60 [facility] Comment on above: Order Comment: If no t done in ED No: Do not add to previous draw Performed By: #### 0 0121, 04872, 70190, 99454, 00113 #### [facility] [facility] [address] COMP METABOLIC PANELon 03-19 Albumin [Mass/Vol] 3.8 g/dL Normal 3.5-5.7 [facility] Comment on above: Order Comment: R/O P ulmonary Edema Performed By: #### 0 0121, 24864, 18291 ####[facility] ALKALINE PHOSPH 30 IU/L Low 34-104 [facility] Comment on above: Order Comment: R/O P ulmonary Edema Performed By: #### 0 0121, 93950, 63975 ####[facility] ALT [Catalytic activity/Vol] 37 U/L Normal 7-52 [facility] Comment on above: Order Comment: R/O P ulmonary Edema Performed By: #### 0 0121, 00724, 55822 ####[facility] AST [Catalytic activity/Vol] 154 U/L High 13-39 [facility] Comment on above: Order Comment: R/O P ulmonary Edema Performed By: #### 0 0121, 70123, 23172 ####[facility] Bilirubin [Mass/Vol] 1.9 mg/dL High 0.3-1.0 [facility] Comment on above: Order Comment: R/O P ulmonary Edema Performed By: #### 0 0121, 45393, 23774 ####[facility] [facility] [place] [address], [facility] Calcium [Mass/Vol] 8.9 mg/dL Normal 8.6-10.3 [facility] Comment on above: Order Comment: R/O P ulmonary Edema Performed By: #### 0 0121, 18471, 01303 ####[facility] [facility] [place] [address], [facility] Chloride [Moles/Vol] 113 mmol/L High 98-107 [facility] Comment on above: Order Comment: R/O P ulmonary Edema Performed By: #### 0 0121, 40389, 83611 ####[facility] [facility] [place] [address], [facility] CO2 [Moles/Vol] 13 mmol/L Critically low 21-31 The [facility] Comment on above: Order Comment: R/O P ulmonary Edema Result Comment: M-CR ITICAL RESULT(S) REVIEWED, CALLED TO AND READ BACK BY PEDRO CEDENO @[facility]0 03.19.19 Performed By: #### 0 0121, 36970, 28793 ####[facility] [facility] [address], [facility] Creatinine [Mass/Vol] 1.11 mg/dL Normal 0.70-1.30 [facility] Comment on above: Order Comment: R/O P ulmonary Edema Performed By: #### 0 0121, 07957, 36460 ####[facility] [facility] [place] [address], [facility] GFR/1.73 sq M predicted among blacks MDRD (S/P/Bld) [Vol rate/Area] mL/min/{1.73_m2} Normal >60 [facility] Comment on above: Order Comment: R/O P ulmonary Edema Performed By: #### 0 0121, 30485, 91679 ####[facility] [place] [address], [facility] GFR/1.73 sq M predicted among non-blacks MDRD (S/P/Bld) [Vol rate/Area] mL/min/{1.73_m2} Normal >60 The [facility] Comment on above: Order Comment: R/O P ulmonary Edema Performed By: #### 0 0121, 22926, 24944 ####[facility] [place] [address], [facility] Glucose [Mass/Vol] 132 mg/dL High 70-100 The [facility] Comment on above: Order Comment: R/O P ulmonary Edema Performed By: #### 0 0121, 62817, 73417 ####[facility] [place] [address], [place] Potassium [Moles/Vol] 4.4 mmol/L Normal 3.5-5.1 [facility] Comment on above: Order Comment: R/O P ulmonary Edema Performed By: #### 0 0121, 53710, 70792 ####[facility] [place] [address], [facility] Protein [Mass/Vol] 5.6 g/dL Low 6.0-8.3 [facility] Comment on above: Order Comment: R/O P ulmonary Edema Performed By: #### 0 0121, 81862, 37616 ####[facility] [place] [address], [place] Sodium [Moles/Vol] 140 mmol/L Normal 136-145 The [facility] Comment on above: Order Comment: R/O P ulmonary Edema Performed By: #### 0 0121, 63956, 56920 ####[facility] [place] [address], [place] Urea nitrogen [Mass/Vol] 18 mg/dL Normal 7-25 [facility] Comment on above: Order Comment: R/O P ulmonary Edema Performed By: #### 0 0121, 22296, 52790 ####[facility] [place] [address], [place] COOXIMETRYon 03-19-2019 COHB 2 % Normal The [facility] Comment on above: Order Comment: No: D o not add to previous draw Performed By: #### 5 7307 #### [facility] [address] [place] [address], [place] METHB 1 % Normal [facility] Comment on above: Order Comment: No: D o not add to previous draw Performed By: #### 5 7307 #### [facility] [address] [place] [address], [place] Oxygen saturation in Blood 66.9 % Normal 65.0-75.0 [facility] Comment on above: Order Comment: No: D o not add to previous draw Performed By: #### 5 7307 #### [facility] [address] [place] [address], [place] THB 13.1 g/dL Normal [facility] Comment on above: Order Comment: No: D o not add to previous draw Performed By: #### 5 7307 #### [facility] [address] [place] [address], [place] COHB 2 % Normal [facility] Comment on above: Performed By: #### 7 0207 ####[facility] [place] [address], [place] METHB 1 % Normal [facility] Comment on above: Performed By: #### 7 0207 ####[facility] [place] [address], [place] Oxygen saturation in Blood 59.2 % Low 65.0-75.0 [facility] Comment on above: Performed By: #### 7 0207 ####[facility] [facility] [address], [facility] THB 14.0 g/dL Normal [facility] Comment on above: Performed By: #### 7 0207 ####[facility] [place] [address], [facility] LACTATE BLOODon 03-19-2019 Lactate [Moles/Vol] 2.6 mmol/L Critically high 0.5-2.2 [facility] Comment on above: Order Comment: No: D o not add to previous draw Result Comment: M-CR ITICAL RESULT(S) REVIEWED, CALLED TO AND READ BACK BY PEDRO MONTANO @2136 03.19.19 Performed By: #### 5 7307 #### [facility] [address] [address], [facility] MAGNESIUM BLOODon 03-19-2019 Magnesium [Mass/Vol] 2.4 mg/dL Normal 1.9-2.7 [facility] Comment on above: Order Comment: No: D o not add to previous draw Performed By: #### 5 7307 #### [facility] [address] [place] [address], [facility] Magnesium [Mass/Vol] 2.7 mg/dL Normal 1.9-2.7 [facility] Comment on above: Order Comment: R/O P ulmonary Edema Performed By: #### 0 0121, 32126, 15049 ####[facility] [facility] [place] [address], [facility] Magnesium [Mass/Vol] 2.9 mg/dL High 1.9-2.7 [facility] Comment on above: Performed By: #### 8 8123, 06023 #### [facility] [address] [place] [address], [place] PERFUSION BLOOD PANELon 03-01 BASE EXCESS -4.0 mmol/L Low -2.0-3.0 [facility] Comment on above: Performed By: #### 8 5123, 36825 #### [facility] [address] [place] [address], [place] Glucose [Mass/Vol] 143 mg/dL High 70-105 [facility] Comment on above: Performed By: #### 8 5123, 23558 #### [facility] [address] [place] [address], [place] Hematocrit (Bld) [Volume fraction] 39 % Normal 38-51 [facility] Comment on above: Performed By: #### 8 5123, 45591 #### [facility] [address] [place] [address], [place] Hemoglobin (Bld) [Mass/Vol] 13.3 g/dL Normal 12.0-17.0 [facility] Comment on above: Performed By: #### 8 5123, 61312 #### [facility] [address] [place] [address], [place] IONIZED CALCIUM 1.58 mmol/L Critically high 1.12-1.32 [facility] Comment on above: Performed By: #### 8 5123, 05949 #### [facility] [address] [place] [address], [place] Oxygen (Bld) [Partial pressure] 59.0 mm[Hg] Low 80.0-105.0 [facility] Comment on above: Performed By: #### 8 5123, 63958 #### [facility] [address] [place] [address], [place] PCO2 35.4 mmHg Normal 35.0-45.0 [facility] Comment on above: Performed By: #### 8 5123, 84690 #### [facility] [address] [place] [address], [place] pH (Bld) 7.37 [pH] Normal 7.35-7.45 [facility] Comment on above: Performed By: #### 8 5123, 70355 #### [facility] [address] [place] [address], [place] Potassium [Moles/Vol] 3.7 mmol/L Normal 3.5-4.9 [facility] Comment on above: Performed By: #### 8 5123, 83394 #### [facility] [address] [place] [address], [place] Sodium [Moles/Vol] 144 mmol/L Normal 138-146 [facility] Comment on above: Performed By: #### 8 5123, 84223 #### [facility] [address] [place] [address], [place] BASE EXCESS -5.0 mmol/L Low -2.0-3.0 [facility] Comment on above: Performed By: #### 8 5123, 95593 #### [facility] [address] [place] [address], [place] Glucose [Mass/Vol] 158 mg/dL High 70-105 [facility] Comment on above: Performed By: #### 8 5123, 62429 #### [facility] [address] [place] [address], [place] Hematocrit (Bld) [Volume fraction] 41 % Normal 38-51 [facility] Comment on above: Performed By: #### 8 5123, 88268 #### [facility] [address] [place] [address], [place] Hemoglobin (Bld) [Mass/Vol] 13.9 g/dL Normal 12.0-17.0 [facility] Comment on above: Performed By: #### 8 5123, 80627 #### [facility] [address] [place] [address], [place] IONIZED CALCIUM 1.34 mmol/L High 1.12-1.32 The [facility] [place] [facility] Comment on above: Performed By: #### 8 5123, 65229 #### [facility] [address] [place] [address], [place] Oxygen (Bld) [Partial pressure] 51.0 mm[Hg] Low 80.0-105.0 [facility] Comment on above: Performed By: #### 8 5123, 50284 #### [facility] [address] [place] [address], [place] PCO2 34.5 mmHg Low 35.0-45.0 [facility] Comment on above: Performed By: #### 8 5123, 47131 #### [facility] [address] [place] [address], [place] pH (Bld) 7.36 [pH] Normal 7.35-7.45 [facility] Comment on above: Performed By: #### 8 5123, 82535 #### [facility] [address] [place] [address], [place] Potassium [Moles/Vol] 4.2 mmol/L Normal 3.5-4.9 [facility] Comment on above: Performed By: #### 8 5123, 24591 #### [facility] [address] [place] [address], [place] Sodium [Moles/Vol] 142 mmol/L Normal 138-146 [facility] Comment on above: Performed By: #### 8 5123, 84322 #### [facility] [address] [place] [address], [place] BASE EXCESS -1.0 mmol/L Normal -2.0-3.0 [facility] Comment on above: Performed By: #### 8 5123, 61271 #### [facility] [address] [place] [address], [place] Glucose [Mass/Vol] 163 mg/dL High 70-105 [facility] [place] [facility] Comment on above: Performed By: #### 8 5123, 32025 #### [facility] [address] [place] [address], [place] Hematocrit (Bld) [Volume fraction] 42 % Normal 38-51 [facility] Comment on above: Performed By: #### 8 5123, 67181 #### [facility] [address] [place] [address], [place] Hemoglobin (Bld) [Mass/Vol] 14.3 g/dL Normal 12.0-17.0 [facility] Comment on above: Performed By: #### 8 5123, 38362 #### [facility] [address] [place] [address], [place] IONIZED CALCIUM 1.05 mmol/L Low 1.12-1.32 [facility] Comment on above: Performed By: #### 8 5123, 97097 #### [facility] [address] [place] [address], [place] Oxygen (Bld) [Partial pressure] 368.0 mm[Hg] High 80.0-105.0 [facility] Comment on above: Performed By: #### 8 5123, 86176 #### [facility] [address] [place] [address], [place] PCO2 39.7 mmHg Normal 35.0-45.0 [facility] Comment on above: Performed By: #### 8 5123, 24815 #### [facility] [address] [place] [address], [place] pH (Bld) 7.39 [pH] Normal 7.35-7.45 [facility] Comment on above: Performed By: #### 8 5123, 93418 #### [facility] [address] [place] [address], [place] Potassium [Moles/Vol] 3.9 mmol/L Normal 3.5-4.9 [facility] Comment on above: Performed By: #### 8 5123, 32421 #### [facility] [address] [place] [address], [place] Sodium [Moles/Vol] 145 mmol/L Normal 138-146 [facility] Comment on above: Performed By: #### 8 5123, 93253 #### [facility] [address] [place] [address], [place] BASE EXCESS -4.0 mmol/L Low -2.0-3.0 [facility] Comment on above: Performed By: #### 8 5123, 33116 #### [facility] [address] [place] [address], [place] Glucose [Mass/Vol] 169 mg/dL High 70-105 [facility] Comment on above: Performed By: #### 8 5123, 50795 #### [facility] [address] [place] [address], [place] Hematocrit (Bld) [Volume fraction] 40 % Normal 38-51 [facility] Comment on above: Performed By: #### 8 5123, 14016 #### [facility] [address] [place] [address], [place] Hemoglobin (Bld) [Mass/Vol] 13.6 g/dL Normal 12.0-17.0 [facility] Comment on above: Performed By: #### 8 5123, 32115 #### [facility] [address] [place] [address], [place] IONIZED CALCIUM 1.37 mmol/L High 1.12-1.32 [facility] Comment on above: Performed By: #### 8 5123, 05151 #### [facility] [address] [place] [address], [place] Oxygen (Bld) [Partial pressure] 301.0 mm[Hg] High 80.0-105.0 [facility] Comment on above: Performed By: #### 8 5123, 28818 #### [facility] [address] [place] [address], [place] PCO2 36.1 mmHg Normal 35.0-45.0 [facility] Comment on above: Performed By: #### 8 5123, 88768 #### [facility] [address] [place] [address], [place] pH (Bld) 7.38 [pH] Normal 7.35-7.45 [facility] Comment on above: Performed By: #### 8 5123, 56046 #### [facility] [address] [place] [address], [place] Potassium [Moles/Vol] 4.9 mmol/L Normal 3.5-4.9 [facility] Comment on above: Performed By: #### 8 5123, 39494 #### [facility] [address] [place] [address], [place] Sodium [Moles/Vol] 137 mmol/L Low 138-146 [facility] Comment on above: Performed By: #### 8 5123, 59997 #### [facility] [address] [place] [address], [place] BASE EXCESS -3.0 mmol/L Low -2.0-3.0 [facility] Comment on above: Performed By: #### 8 5123, 77889 #### [facility] [address] [place] [address], [place] Glucose [Mass/Vol] 174 mg/dL High 70-105 [facility] Comment on above: Performed By: #### 8 5123, 15980 #### [facility] [address] [place] [address], [place] Hematocrit (Bld) [Volume fraction] 45 % Normal 38-51 [facility] Comment on above: Performed By: #### 8 5123, 47718 #### [facility] [address] [place] [address], [facility] Hemoglobin (Bld) [Mass/Vol] 15.3 g/dL Normal 12.0-17.0 [facility] Comment on above: Performed By: #### 8 5123, 03290 #### [facility] [address] [place] [address], [facility] IONIZED CALCIUM 1.06 mmol/L Low 1.12-1.32 [facility] Comment on above: Performed By: #### 8 5123, 54474 #### [facility] [address] [place] [address], [facility] Oxygen (Bld) [Partial pressure] 404.0 mm[Hg] High 80.0-105.0 [facility] Comment on above: Performed By: #### 8 5123, 99385 #### [facility] [address] [place] [address], [facility] PCO2 42.4 mmHg Normal 35.0-45.0 [facility] Comment on above: Performed By: #### 8 5123, 02465 #### [facility] [address] [place] [address], [facility] pH (Bld) 7.35 [pH] Normal 7.35-7.45 [facility] Comment on above: Performed By: #### 8 5123, 05608 #### [facility] [address] [place] [address], [facility] Potassium [Moles/Vol] 4.7 mmol/L Normal 3.5-4.9 [facility] Comment on above: Performed By: #### 8 5123, 01390 #### [facility] [address] [place] [address], [facility] Sodium [Moles/Vol] 141 mmol/L Normal 138-146 [facility] Comment on above: Performed By: #### 8 5123, 16310 #### [facility] [address] [place] [address], [place] BASE EXCESS -2.0 mmol/L Normal -2.0-3.0 [facility] Comment on above: Performed By: #### 8 5123, 31056 #### [facility] [address] [place] [address], [place] Glucose [Mass/Vol] 184 mg/dL High 70-105 [facility] Comment on above: Performed By: #### 8 5123, 59039 #### [facility] [address] [place] [address], [place] Hematocrit (Bld) [Volume fraction] 46 % Normal 38-51 [facility] Comment on above: Performed By: #### 8 5123, 12810 #### [facility] [address] [place] [address], [place] Hemoglobin (Bld) [Mass/Vol] 15.6 g/dL Normal 12.0-17.0 [facility] Comment on above: Performed By: #### 8 5123, 07494 #### [facility] [address] [place] [address], [place] IONIZED CALCIUM 1.06 mmol/L Low 1.12-1.32 [facility] Comment on above: Performed By: #### 8 5123, 56807 #### [facility] [address] [place] [address], [place] Oxygen (Bld) [Partial pressure] 374.0 mm[Hg] High 80.0-105.0 [facility] Comment on above: Performed By: #### 8 5123, 90513 #### [facility] [address] [place] [address], [place] PCO2 43.3 mmHg Normal 35.0-45.0 [facility] Comment on above: Performed By: #### 8 5123, 52949 #### [facility] [address] [place] [address], [place] pH (Bld) 7.34 [pH] Low 7.35-7.45 [facility] Comment on above: Performed By: #### 8 5123, 67452 #### [facility] [address] [place] [address], [place] Potassium [Moles/Vol] 4.8 mmol/L Normal 3.5-4.9 [facility] Comment on above: Performed By: #### 8 5123, 55688 #### [facility] [address] [place] [address], [place] Sodium [Moles/Vol] 139 mmol/L Normal 138-146 [facility] Comment on above: Performed By: #### 8 5123, 81750 #### [facility] [address] [place] [address], [place] BASE EXCESS -2.0 mmol/L Normal -2.0-3.0 [facility] Comment on above: Performed By: #### 8 5123, 18341 #### [facility] [address] [place] [address], [place] Glucose [Mass/Vol] 176 mg/dL High 70-105 [facility] Comment on above: Performed By: #### 8 5123, 30929 #### [facility] [address] [place] [address], [place] Hematocrit (Bld) [Volume fraction] 44 % Normal 38-51 [facility] Comment on above: Performed By: #### 8 5123, 66668 #### [facility] [address] [place] [address], [facility] Hemoglobin (Bld) [Mass/Vol] 15.0 g/dL Normal 12.0-17.0 [facility] Comment on above: Performed By: #### 8 5123, 25746 #### [facility] [address] [place] [address], [facility] IONIZED CALCIUM 1.07 mmol/L Low 1.12-1.32 [facility] Comment on above: Performed By: #### 8 5123, 15595 #### [facility] [address] [address], [facility] Oxygen (Bld) [Partial pressure] 284.0 mm[Hg] High 80.0-105.0 [facility] Comment on above: Performed By: #### 8 5123, 46011 #### [facility] [address] [facility] [facility] [place] [address], [facility] PCO2 47.5 mmHg High 35.0-45.0 [facility] Comment on above: Performed By: #### 8 5123, 46190 #### [facility] [address] [facility] [place] [address], [facility] pH (Bld) 7.32 [pH] Low 7.35-7.45 [facility] Comment on above: Performed By: #### 8 5123, 92013 #### [facility] [address] [facility] [place] [address], [facility] Potassium [Moles/Vol] 4.8 mmol/L Normal 3.5-4.9 [facility] Comment on above: Performed By: #### 8 5123, 80484 #### [facility] [address] [place] [address], [place] Sodium [Moles/Vol] 139 mmol/L Normal 138-146 [facility] Comment on above: Performed By: #### 8 5123, 45748 #### [facility] [address] [place] [address], [place] BASE EXCESS -2.0 mmol/L Normal -2.0-3.0 [facility] Comment on above: Performed By: #### 0 0121, 40365, 22291, 84281, 11503 #### [facility] [address] [place] [address], [place] Glucose [Mass/Vol] 166 mg/dL High 70-105 [facility] Comment on above: Performed By: #### 0 0121, 78508, 04305, 15464, 74894 #### [facility] [address] [place] [address], [facility] Hematocrit (Bld) [Volume fraction] 45 % Normal 38-51 [facility] Comment on above: Performed By: #### 0 0121, 83339, 26551, 34801, 84328 #### [facility] [address] [place] [address], [place] Hemoglobin (Bld) [Mass/Vol] 15.3 g/dL Normal 12.0-17.0 [facility] Comment on above: Performed By: #### 0 0121, 55276, 73140, 98364, 23831 #### [facility] [address] [place] [address], [place] IONIZED CALCIUM 1.09 mmol/L Low 1.12-1.32 [facility] Comment on above: Performed By: #### 0 0121, 98017, 94808, 02922, 78976 #### [facility] [address] [place] [address], [place] Oxygen (Bld) [Partial pressure] 313.0 mm[Hg] High 80.0-105.0 [facility] Comment on above: Performed By: #### 0 0121, 94785, 53325, 19764, 50119 #### [facility] [address] [place] [address], [place] PCO2 47.7 mmHg High 35.0-45.0 [facility] Comment on above: Performed By: #### 0 0121, 08413, 89946, 46877, 23055 #### [facility] [facility] [address] [place] [address], [place] pH (Bld) 7.32 [pH] Low 7.35-7.45 [facility] Comment on above: Performed By: #### 0 0121, 61640, 99001, 29939, 90473 #### [facility] [address] [place] [address], [place] Potassium [Moles/Vol] 4.4 mmol/L Normal 3.5-4.9 [facility] Comment on above: Performed By: #### 0 0121, 84747, 59981, 33672, 28195 #### [facility] [address] [place] [address], [place] Sodium [Moles/Vol] 140 mmol/L Normal 138-146 The [facility] Comment on above: Performed By: #### 0 0121, 23991, 92331, 59206, 70181 #### [facility] [address] [place] [address], [facility] BASE EXCESS -1.0 mmol/L Normal -2.0-3.0 [facility] Comment on above: Performed By: #### 0 0121, 15127, 64006, 43360, 77765 #### [facility] [address] [place] [address], [place] Glucose [Mass/Vol] 146 mg/dL High 70-105 [facility] Comment on above: Performed By: #### 0 0121, 48434, 12172, 25715, 66379 #### [facility] [address] [place] [address], [place] Hematocrit (Bld) [Volume fraction] 45 % Normal 38-51 [facility] Comment on above: Performed By: #### 0 0121, 27415, 59273, 19328, 96568 #### [facility] [address] [place] [address], [facility] Hemoglobin (Bld) [Mass/Vol] 15.3 g/dL Normal 12.0-17.0 [facility] Comment on above: Performed By: #### 0 0121, 89782, 47263, 62455, 38725 #### [facility] [address] [place] [address], [place] IONIZED CALCIUM 1.06 mmol/L Low 1.12-1.32 [facility] Comment on above: Performed By: #### 0 0121, 88228, 71915, 92970, 83784 #### [facility] [address] [place] [address], [place] Oxygen (Bld) [Partial pressure] 319.0 mm[Hg] High 80.0-105.0 [facility] Comment on above: Performed By: #### 0 0121, 37421, 58024, 06221, 84853 #### [facility] [address] [place] [address], [place] PCO2 50.9 mmHg High 35.0-45.0 [facility] Comment on above: Performed By: #### 0 0121, 71345, 42180, 61077, 75793 #### [facility] [address] [place] [address], [place] pH (Bld) 7.32 [pH] Low 7.35-7.45 [facility] Comment on above: Performed By: #### 0 0121, 54890, 13644, 48555, 70838 #### [facility] [address] [place] [address], [place] Potassium [Moles/Vol] 4.4 mmol/L Normal 3.5-4.9 [facility] Comment on above: Performed By: #### 0 0121, 95247, 44293, 72672, 78341 #### [facility] [address] [place] [address], [facility] Sodium [Moles/Vol] 138 mmol/L Normal 138-146 [facility] Comment on above: Performed By: #### 0 0121, 76507, 53511, 03656, 59665 #### [facility] [address] [place] [address], [place] BASE EXCESS 0.0 mmol/L Normal -2.0-3.0 [facility] Comment on above: Performed By: #### 0 0121, 87946, 93927, 09347, 81801 #### [facility] [address] [place] [address], [place] Glucose [Mass/Vol] 116 mg/dL High 70-105 [facility] Comment on above: Performed By: #### 0 0121, 86990, 55081, 77902, 80671 #### [facility] [address] [place] [address], [facility] Hematocrit (Bld) [Volume fraction] 43 % Normal 38-51 [facility] Comment on above: Performed By: #### 0 0121, 85209, 55002, 40171, 64156 #### [facility] [address] [place] [address], [place] Hemoglobin (Bld) [Mass/Vol] 14.6 g/dL Normal 12.0-17.0 [facility] Comment on above: Performed By: #### 0 0121, 46419, 95966, 94705, 16481 #### [facility] [address] [place] [address], [place] IONIZED CALCIUM 1.05 mmol/L Low 1.12-1.32 [facility] Comment on above: Performed By: #### 0 0121, 43513, 98348, 43123, 07876 #### [facility] [address] [place] [address], [place] Oxygen (Bld) [Partial pressure] 409.0 mm[Hg] High 80.0-105.0 [facility] Comment on above: Performed By: #### 0 0121, 08804, 38920, 92420, 14655 #### [facility] [address] [place] [address], [place] PCO2 44.9 mmHg Normal 35.0-45.0 [facility] Comment on above: Performed By: #### 0 0121, 11366, 88610, 47327, 24076 #### [facility] [address] [place] [address], [place] pH (Bld) 7.36 [pH] Normal 7.35-7.45 [facility] Comment on above: Performed By: #### 0 0121, 63265, 36306, 32306, 59615 #### [facility] [address] [place] [address], [place] Potassium [Moles/Vol] 4.5 mmol/L Normal 3.5-4.9 [facility] Comment on above: Performed By: #### 0 0121, 27233, 06315, 89223, 90900 #### [facility] [address] [place] [address], [place] Sodium [Moles/Vol] 138 mmol/L Normal 138-146 [facility] Comment on above: Performed By: #### 0 0121, 79940, 97313, 48748, 68402 #### [facility] [address] [place] [address], [place] BASE EXCESS 0.0 mmol/L Normal -2.0-3.0 [facility] Comment on above: Performed By: #### 0 0121, 30142, 05948, 81420, 17030 #### [facility] [address] [place] [address], [facility] Glucose [Mass/Vol] 101 mg/dL Normal 70-105 [facility] Comment on above: Performed By: #### 0 0121, 47299, 43796, 34102, 79492 #### [facility] [address] [place] [address], [facility] Hematocrit (Bld) [Volume fraction] 44 % Normal 38-51 [facility] Comment on above: Performed By: #### 0 0121, 92429, 72156, 89186, 18915 #### [facility] [address] [place] [address], [facility] Hemoglobin (Bld) [Mass/Vol] 15.0 g/dL Normal 12.0-17.0 [facility] Comment on above: Performed By: #### 0 0121, 79294, 67553, 65115, 64801 #### [facility] [address] [place] [address], [facility] IONIZED CALCIUM 1.02 mmol/L Low 1.12-1.32 [facility] Comment on above: Performed By: #### 0 0121, 32886, 79803, 49591, 68854 #### [facility] [address] [place] [address], [facility] Oxygen (Bld) [Partial pressure] 516.0 mm[Hg] High 80.0-105.0 [facility] Comment on above: Performed By: #### 0 0121, 39792, 63393, 87285, 83922 #### [facility] [address] [place] [address], [facility] PCO2 50.7 mmHg High 35.0-45.0 [facility] Comment on above: Performed By: #### 0 0121, 30369, 52984, 45996, 97922 #### [facility] [address] [place] [address], [place] pH (Bld) 7.33 [pH] Low 7.35-7.45 [facility] Comment on above: Performed By: #### 0 0121, 59188, 83597, 35498, 94065 #### [facility] [address] [place] [address], [place] Potassium [Moles/Vol] 4.1 mmol/L Normal 3.5-4.9 [facility] Comment on above: Performed By: #### 0 0121, 58525, 30875, 57798, 20736 #### [facility] [address] [place] [address], [place] Sodium [Moles/Vol] 137 mmol/L Low 138-146 [facility] Comment on above: Performed By: #### 0 0121, 88854, 12394, 67880, 89363 #### [facility] [address] [place] [address], [place] Hematocrit (Bld) [Volume fraction] 43 % Normal 38-51 [facility] Comment on above: Performed By: #### 0 0121, 03921, 89929, 13464, 47177 #### [facility] [address] [place] [address], [place] Hemoglobin (Bld) [Mass/Vol] 14.6 g/dL Normal 12.0-17.0 [facility] Comment on above: Performed By: #### 0 0121, 99801, 41719, 34599, 92813 #### [facility] [address] [place] [address], [place] Oxygen (Bld) [Partial pressure] 51.0 mm[Hg] Normal [facility] Comment on above: Performed By: #### 0 0121, 31144, 67339, 28641, 28002 #### [facility] [address] [place] [address], [place] BASE EXCESS -4.0 mmol/L Low -2.0-3.0 [facility] Comment on above: Performed By: #### 0 0121, 75833, 38831, 75755, 51284 #### [facility] [address] [place] [address], [place] Glucose [Mass/Vol] 104 mg/dL Normal 70-105 [facility] Comment on above: Performed By: #### 0 0121, 70727, 94290, 40534, 74063 #### [facility] [address] [place] [address], [place] Hematocrit (Bld) [Volume fraction] 55 % High 38-51 [facility] Comment on above: Performed By: #### 0 0121, 63393, 66167, 40418, 29812 #### [facility] [address] [place] [address], [place] Hemoglobin (Bld) [Mass/Vol] 18.7 g/dL High 12.0-17.0 [facility] Comment on above: Performed By: #### 0 0121, 42960, 62085, 69187, 27395 #### [facility] [address] [place] [address], [place] IONIZED CALCIUM 1.24 mmol/L Normal 1.12-1.32 [facility] Comment on above: Performed By: #### 0 0121, 55779, 27175, 94739, 33198 #### [facility] [address] [place] [address], [place] Oxygen (Bld) [Partial pressure] 159.0 mm[Hg] High 80.0-105.0 [facility] Comment on above: Performed By: #### 0 0121, 94187, 98349, 62882, 21955 #### [facility] [address] [place] [address], [place] PCO2 48.7 mmHg High 35.0-45.0 [facility] Comment on above: Performed By: #### 0 0121, 36087, 13332, 60305, 53742 #### [facility] [address] [place] [address], [place] pH (Bld) 7.30 [pH] Low 7.35-7.45 [facility] Comment on above: Performed By: #### 0 0121, 41421, 58293, 95244, 78728 #### [facility] [address] [place] [address], [place] Potassium [Moles/Vol] 4.1 mmol/L Normal 3.5-4.9 [facility] Comment on above: Performed By: #### 0 0121, 81642, 30995, 67320, 20672 #### [facility] [address] [place] [address], [place] Sodium [Moles/Vol] 139 mmol/L Normal 138-146 [facility] Comment on above: Performed By: #### 0 0121, 22766, 25309, 78353, 25274 #### [facility] [address] [place] [address], [place] PHOSPHORUS BLOODon 9 Phosphate [Mass/Vol] 4.3 mg/dL Normal 2.5-5.0 [facility] Comment on above: Order Comment: R/O P ulmonary Edema Performed By: #### 0 0121, 65921, 68105 ####[facility] [place] [address], [place] POC GLUCOSE LABon 03-19-2019 Glucose [Mass/Vol] 115 mg/dL High 70-100 [facility] Comment on above: Performed By: #### 5 7307 #### [facility] [address] [place] [address], [place] Glucose [Mass/Vol] 145 mg/dL High 70-100 [facility] Comment on above: Performed By: #### 5 7307 #### [facility] [address] [facility] [address], [facility] Glucose [Mass/Vol] 121 mg/dL High 70-100 [facility] Comment on above: Performed By: #### 8 5499 ####[facility] [facility] [address], [facility] Glucose [Mass/Vol] 122 mg/dL High 70-100 [facility] Comment on above: Performed By: #### 8 5499 ####[facility] [place] [address], [facility] PORTABLE CHEST 1 VIEWon 03-01 PORTABLE CHEST 1 VIEW [facility] Department of Radiology [address] [place] [address] ======== Patient Name: TRACIE CRAIN : 1965 Sex: M Age: Race: NA Pt. Location: [id number] Patient Status: I Ordered Date: 03/19/2019 5:50:00 [...] the upper thoracic trachea in satisfactory position. Snyder-Sher catheter, chest tubes and enteric tube appear [...] findings. Electronically signed by:Yenni Osuna. Transcribed by: [email or web address], User Resident: EMILIA SHERMAN Electronically Signed by: YENNI OSUNA @ 03/20/2019 05:05 PM I personally read this/these film(s) with this resident Normal [facility] Comment on above: Order Comment: << On admission If not done in ED>> No: Do not add to previous draw PORTABLE CHEST 1 VIEW [facility] Department of Radiology [address] [place] [id number] ======== Patient Name: TRACIE CRAIN : 1965 Sex: M Age: Race: NA Pt. Location: [id number] Patient Status: I Ordered Date: 03/19/2019 4:45:00 [...] right-sided chest tubes appear in satisfactory position. Snyder-Sher catheter with tip projecting over the pulmonary [...] findings. Electronically signed by:Divya Collins. Transcribed by: [email or web address], User Resident: ANAI ALVARADO Electronically Signed by: DIVYA COLLINS @ 03/20/2019 11:00 AM I personally read this/these film(s) with this resident Normal [facility] Comment on above: Order Comment: << On admission If not done in ED>> No: Do not add to previous draw PORTABLE CHEST 1 VIEW [facility] Department of Radiology [address] [place] [id number] ======== Patient Name: TRACIE CRAIN : 1965 Sex: M Age: Race: NA Pt. Location: [id number] Patient Status: I Ordered Date: 03/19/2019 3:55:00 [...] tubes are in place. No appreciable pneumothorax. Snyder-Sher catheter in place likely terminating in the [...] disease most likely representing multifocal atelectasis. * Snyder-Sher catheter likely terminating in the proximal right main pulmonary artery. * Trace pleural fluid bilaterally. Approved by:Pierce Sherman on 03/19/2019 5:04 PM EDT. I, Yenni Osuna, have reviewed the images and report and concur with these findings. Electronically signed by:Yenni Osuna. Transcribed by: [email or web address], User Resident: EMILIA SHERMAN Electronically Signed by: YENNI OSUNA @ 03/20/2019 05:04 PM I personally read this/these film(s) with this resident Normal [facility] Comment on above: Order Comment: << On admission If not done in ED>> No: Do not add to previous draw PROTHROMBIN TIMEon 9 INR Coag (PPP) [Relative time] 1.60 {INR} High 0.91-1.16 [facility] Comment on above: Order Comment: R/O [...] CHEST 1995;108:231S-246S. Performed By: #### 5 6101 ####[facility] PT Coag (PPP) [Time] 19.1 s High 12.3-14.8 [facility] Comment on above: Order Comment: R/O P ulmonary Edema Result Comment: ALL RESULTS MUST BE INTERPRETED WITH RESPECT TO BLOOD DRAWING ARTIFACT OR DILUTION ERROR OF ANTICOAGULANT AT THE TIME OF SAMPLING. Performed By: #### 5 6101 ####[facility] [place] [address], [facility] INR Coag (PPP) [Relative time] 1.68 {INR} High 0.91-1.16 [facility] Comment on above: Order Comment: If [...] RANGE. CHEST 1995;108:231S-246S. Performed By: #### 8 2903, 60724 #### [facility] [address] [facility] [place] [address], [facility] PT Coag (PPP) [Time] 19.9 s High 12.3-14.8 [facility] Comment on above: Order Comment: If no t done in ED No: Do not add to previous draw Result Comment: ALL RESULTS MUST BE INTERPRETED WITH RESPECT TO BLOOD DRAWING ARTIFACT OR DILUTION ERROR OF ANTICOAGULANT AT THE TIME OF SAMPLING. Performed By: #### 8 7153, 79919 #### [facility] [address] [facility] [place] [address], [facility] INR Coag (PPP) [Relative time] 1.02 {INR} Normal 0.91-1.16 [facility] Comment on above: Order Comment: If [...] CHEST 1995;108:231S-246S. Performed By: #### 0 0121, 23080, 38827, 87892, 18387 #### [facility] [address] [facility]. [address] PT Coag (PPP) [Time] 13.4 s Normal 12.3-14.8 [facility] Comment on above: Order Comment: If no t done in ED No: Do not add to previous draw Result Comment: ALL RESULTS MUST BE INTERPRETED WITH RESPECT TO BLOOD DRAWING ARTIFACT OR DILUTION ERROR OF ANTICOAGULANT AT THE TIME OF SAMPLING. Performed By: #### 0 0121, 26292, 58466, 28265, 15725 #### [facility] [address] [place] [address], [facility] RBC'S 2 UNITSon 03-19-2019 CROSSMATCH INTERP 1 COMP Normal [facility] Comment on above: Performed By: #### 0 0121, 34666, 42139, 48227, 47578 #### [facility] [address] [place] [address], [facility] CROSSMATCH INTERP 2 COMP Normal [facility] Comment on above: Performed By: #### 0 0121, 78450, 90954, 18261, 15462 #### [facility] [address] [place] [address], [facility] PRODUCT CODE 1 E0332 Normal [facility] Comment on above: Performed By: #### 0 0121, 26133, 56324, 15706, 38292 #### [facility] [address] [place] [address], [facility] PRODUCT CODE 2 E0336 Normal [facility] Comment on above: Performed By: #### 0 0121, 32841, 70764, 18470, 47994 #### [facility] [address] [place] [address], [facility] PRODUCT STATUS 1 RE Normal [facility] Comment on above: Result Comment: Resu lt changed by IF on 03/19/2019 08:33. The previous value was XM. Result changed by IF on 03/19/2019 16:19. The previous value was IS. Result changed by IF on 03/20/2019 09:43. The previous value was XM. Result changed by IF on 03/20/2019 09:46. The previous value was XX. Performed By: #### 0 0121, 01939, 54197, 45894, 85501 #### [facility] [address] [place] [address], [facility] PRODUCT STATUS 2 RE Normal [facility] Comment on above: Result Comment: Resu lt changed by IF on 03/19/2019 08:33. The previous value was XM. Result changed by IF on 03/19/2019 16:19. The previous value was IS. Result changed by IF on 03/20/2019 09:43. The previous value was XM. Result changed by IF on 03/20/2019 11:11. The previous value was XX. Performed By: #### 0 0121, 61579, 91474, 01798, 96265 #### [facility] [address] [place] [address], [facility] UNIT ABO 1 O Normal [facility] Comment on above: Performed By: #### 0 0121, 11627, 05787, 29284, 08729 #### [facility] [address] [place] [address], [facility] UNIT ABO 2 O Normal [facility] Comment on above: Performed By: #### 0 0121, 60534, 75600, 44598, 99602 #### [facility] [address] [place] [address], [facility] UNIT ID 1 [id number] Normal [facility] Comment on above: Performed By: #### 0 0121, 09623, 30013, 59096, 70182 #### [facility] [address] [place] [address], [facility] UNIT ID 2 [id number] Normal [facility] Comment on above: Performed By: #### 0 0121, 94169, 48478, 33726, 10189 #### [facility] [address] [place] [address], [place] UNIT RH 1 Negative Normal [facility] Comment on above: Performed By: #### 0 0121, 89016, 74550, 65520, 68651 #### [facility] [address] [place] [address], [place] UNIT RH 2 Negative Normal [facility] Comment on above: Performed By: #### 0 0121, 49076, 92276, 79434, 60114 #### [facility] [address] [place] [address], [facility] *MRSA/MSSA DNA NASALon 03-18 *MRSA/MSSA DNA NASAL Clinical Report: (D ) Specimen: NASAL SWAB Collected: 03/18/2019 17:05 Status: Final Last Updated: 03/19/2019 12:12 MSSA DNA (Final) Negative MRSA DNA (Final) Negative Normal [facility] Comment on above: Performed By: #### 8 5123, 48033 #### [facility] [address] [place] [address], [facility] APTTon 03-18-2019 aPTT Coag (Bld) [Time] 58.1 s High 25.0-35.0 [facility] Comment on above: Order Comment: [...] OF HEPARIN. Performed By: #### 0 0121, 71406, 70484, 69218, 11497 #### [facility] [address] aPTT Coag (Bld) [Time] 67.7 s High 25.0-35.0 [facility] Comment on above: Order Comment: [...] OF HEPARIN. Performed By: #### 0 0121, 02033, 82918, 78050, 50156 #### [facility] [address] aPTT Coag (Bld) [Time] 74.8 s Critically high 25.0-35.0 [facility] Comment on above: Order Comment: << [...] AT 0609. Performed By: #### 0 0121, 18745, 85974, 07532, 82276 #### [facility] [address] BASIC METABOLIC PANELon - Calcium [Mass/Vol] 9.2 mg/dL Normal 8.6-10.3 [facility] Comment on above: Order Comment: << ON ADMISSION If not done in ED>> No: Do not add to previous draw Performed By: #### 0 0121, 92147, 66776, 06156, 09275 #### [facility] [address] [place] [address], [facility] Chloride [Moles/Vol] 105 mmol/L Normal 98-107 [facility] Comment on above: Order Comment: << ON ADMISSION If not done in ED>> No: Do not add to previous draw Performed By: #### 0 0121, 11889, 29552, 20815, 45749 #### [facility] [address] [place] [address], [facility] CO2 [Moles/Vol] 27 mmol/L Normal 21-31 [facility] Comment on above: Order Comment: << ON ADMISSION If not done in ED>> No: Do not add to previous draw Performed By: #### 0 0121, 38020, 92685, 49202, 03821 #### [facility] [address] [place] [address], [place] Creatinine [Mass/Vol] 1.11 mg/dL Normal 0.70-1.30 [facility] Comment on above: Order Comment: << ON ADMISSION If not done in ED>> No: Do not add to previous draw Performed By: #### 0 0121, 04378, 00616, 21347, 25493 #### [facility] [address] [place] [address], [place] GFR/1.73 sq M predicted among blacks MDRD (S/P/Bld) [Vol rate/Area] mL/min/{1.73_m2} Normal >60 [facility] Comment on above: Order Comment: << ON ADMISSION If not done in ED>> No: Do not add to previous draw Performed By: #### 0 0121, 02012, 21213, 86701, 00991 #### [facility] [address] [place] [address], [place] GFR/1.73 sq M predicted among non-blacks MDRD (S/P/Bld) [Vol rate/Area] mL/min/{1.73_m2} Normal >60 [facility] Comment on above: Order Comment: << ON ADMISSION If not done in ED>> No: Do not add to previous draw Performed By: #### 0 0121, 92129, 71882, 55557, 91090 #### [facility] [address] [place] [address], [place] Glucose [Mass/Vol] 101 mg/dL High 70-100 [facility] Comment on above: Order Comment: << ON ADMISSION If not done in ED>> No: Do not add to previous draw Performed By: #### 0 [id number], [id number], [id number], [id number], [id number] #### [facility] [address] [place] [address], [place] Potassium [Moles/Vol] 4.2 mmol/L Normal 3.5-5.1 [facility] Comment on above: Order Comment: << ON ADMISSION If not done in ED>> No: Do not add to previous draw Performed By: #### 0 [id number], [id number], 03082, [id number], [id number] #### [facility] [address] [address] Sodium [Moles/Vol] 136 mmol/L Normal 136-145 [facility] Comment on above: Order Comment: << ON ADMISSION If not done in ED>> No: Do not add to previous draw Performed By: #### 0 0121, 40294, 93030, 30878, 55114 #### [facility] [address] Urea nitrogen [Mass/Vol] 15 mg/dL Normal 7-25 [facility] Comment on above: Order Comment: << ON ADMISSION If not done in ED>> No: Do not add to previous draw Performed By: #### 0 0121, 85639, 38207, 87922, 59361 #### [facility] [address] CBC COMPLETE BLOOD COUNTon 0 - Erythrocyte distribution width (RBC) [Ratio] 12.8 % Normal 11.5-15.0 [facility] Comment on above: Order Comment: << ON ADMISSION If not done in ED>> No: Do not add to previous draw Performed By: #### 0 0121, 55464, 74804, 10683, 49483 #### [facility] [address] [place] [address], [facility] Hematocrit (Bld) [Volume fraction] 55.1 % High 39.0-50.0 [facility] Comment on above: Order Comment: << ON ADMISSION If not done in ED>> No: Do not add to previous draw Performed By: #### 0 0121, 64586, 96626, 90333, 09276 #### [facility] [address] [place] [address], [facility] Hemoglobin (Bld) [Mass/Vol] 17.5 g/dL High 13.0-17.0 [facility] Comment on above: Order Comment: << ON ADMISSION If not done in ED>> No: Do not add to previous draw Performed By: #### 0 0121, 54826, 36107, 99330, 86399 #### [facility] [address] [place] [address], [facility] MCH (RBC) [Entitic mass] 28.6 pg Normal 27.0-33.0 [facility] Comment on above: Order Comment: << ON ADMISSION If not done in ED>> No: Do not add to previous draw Performed By: #### 0 0121, 53637, 86950, 62187, 88385 #### [facility] [address] MCHC (RBC) [Mass/Vol] 31.8 g/dL Low 32.0-35.0 [facility] Comment on above: Order Comment: << ON ADMISSION If not done in ED>> No: Do not add to previous draw Performed By: #### 0 0121, 23069, 18939, 88270, 88926 #### [facility] [address] MCV (RBC) [Entitic vol] 90.0 fL Normal 82.0-98.0 [facility] Comment on above: Order Comment: << ON ADMISSION If not done in ED>> No: Do not add to previous draw Performed By: #### 0 0121, 33290, 42533, 81104, 99329 #### [facility] [address] [place] [address], [facility] Nucleated RBC/100 WBC (Bld) [Ratio] 0 % Normal 0-0 [facility] Comment on above: Order Comment: << ON ADMISSION If not done in ED>> No: Do not add to previous draw Performed By: #### 0 0121, 84151, 90330, 45818, 59621 #### [facility] [address] [place] [address], [facility] PLAT CNT 286 10*3/uL Normal 150-400 [facility] Comment on above: Order Comment: << ON ADMISSION If not done in ED>> No: Do not add to previous draw Performed By: #### 0 0121, 84754, 42447, 16123, 92455 #### [facility] [address] [place] [address], [facility] RBC (Bld) [#/Vol] 6.12 10*6/uL High 4.20-5.70 [facility] Comment on above: Order Comment: << ON ADMISSION If not done in ED>> No: Do not add to previous draw Performed By: #### 0 0121, 54922, 64049, 87499, 00305 #### [facility] [address] [facility] [place] [address], [facility] WBC (Bld) [#/Vol] 9.33 10*3/uL Normal 4.00-10.60 [facility] Comment on above: Order Comment: << ON ADMISSION If not done in ED>> No: Do not add to previous draw Performed By: #### 0 0121, 57570, 34777, 20175, 15716 #### [facility] [address] [facility]. [address] MAGNESIUM BLOODon 03-18-2019 Magnesium [Mass/Vol] 2.4 mg/dL Normal 1.9-2.7 [facility] Comment on above: Performed By: #### 0 0121, 46543, 15961, 84282, 46001 #### [facility] [address] [place] [address], [facility] TYPE AND SCREENon 03-18-2019 ABO INTERPRETATION O Normal [facility] Comment on above: Performed By: #### 0 0121, 02513, 86306, 47369, 35049 #### [facility] [address] [facility] [address] RH INTERPRETATION Negative Normal [facility] Comment on above: Performed By: #### 0 0121, 84825, 14506, 58353, 64279 #### [facility] [address] [facility] UFH HEPARIN ASSAYon 03-18-20 19 UNFRACTIONATED HEPARIN 0.19 IU/mL Low 0.30-0.70 [facility] Comment on above: Order Comment: If no t done in ED No: Do not add to previous draw Result Comment: Estefania roxaban and Apixaban will interfere with the anti Xa assay used to monitor UFH and LMWH. Performed By: #### 0 0121, 02202, 40235, 78528, 70536 #### [facility] [address] UNFRACTIONATED HEPARIN 0.29 IU/mL Low 0.30-0.70 [facility] Comment on above: Order Comment: << ON ADMISSION If not done in ED>> No: Do not add to previous draw Result Comment: [employer] roxaban and Apixaban will interfere with the anti Xa assay used to monitor UFH and LMWH. Performed By: #### 0 0121, 58779, 90373, 54690, 58362 #### [facility] [address] UNFRACTIONATED HEPARIN 0.25 IU/mL Low 0.30-0.70 [facility] Comment on above: Result Comment: [employer] roxaban and Apixaban will interfere with the anti Xa assay used to monitor UFH and LMWH. Performed By: #### 0 0121, 12339, 66049, 67682, 61365 #### [facility] [address] [place], [place] [address] [place] [address] URINALYSISon 03-18-2019 Appearance (U) CLEAR Normal CLEAR [facility] Comment on above: Order Comment: If no t done in ED No: Do not add to previous draw Performed By: #### 0 0121, 21663, 91059, 87769, 90358 #### [facility] [address] [place] [address], [place] Bilirubin [Mass/Vol] Negative Normal NEGATIVE [facility] Comment on above: Order Comment: If no t done in ED No: Do not add to previous draw Performed By: #### 0 0121, 23396, 29200, 71471, 52101 #### [facility] [address] [place] [address], [place] BLOOD Negative Normal NEGATIVE [facility] Comment on above: Order Comment: If no t done in ED No: Do not add to previous draw Performed By: #### 0 0121, 55368, 89719, 79193, 34436 #### [facility] [address] [place] [address], [place] Color (U) YELLOW Normal YELLOW [facility] Comment on above: Order Comment: If no t done in ED No: Do not add to previous draw Performed By: #### 0 0121, 03832, 15947, 94361, 08666 #### [facility] [address] [place] [address], [place] Glucose [Mass/Vol] Negative Normal NEGATIVE [facility] Comment on above: Order Comment: If no t done in ED No: Do not add to previous draw Performed By: #### 0 0121, 81219, 19062, 50369, 86452 #### [facility] [address] [place] [address], [place] KETONE Negative Normal NEGATIVE [facility] Comment on above: Order Comment: If no t done in ED No: Do not add to previous draw Performed By: #### 0 0121, 68593, 52936, 34808, 58670 #### [facility] [address] [place] [address], [place] LEUK RADHA Negative Normal NEGATIVE [facility] Comment on above: Order Comment: If no t done in ED No: Do not add to previous draw Performed By: #### 0 0121, 13086, 00142, 54412, 12422 #### [facility] [address] [place] [address], [place] MICRO NOT DONE negative chemical reactions unless requested in original order Normal [facility] Comment on above: Order Comment: If no t done in ED No: Do not add to previous draw Performed By: #### 0 0121, 92974, 63737, 81143, 43421 #### [facility] [address] [place] [address], [facility] Nitrite Ql (U) Negative Normal NEGATIVE [facility] Comment on above: Order Comment: If no t done in ED No: Do not add to previous draw Performed By: #### 0 0121, 41359, 38058, 22156, 13522 #### [facility] [address] [place] [address], [place] pH (Bld) 6.0 Normal 5.0-8.0 [facility] Comment on above: Order Comment: If no t done in ED No: Do not add to previous draw Performed By: #### 0 0121, 90654, 74928, 54615, 94054 #### [facility] [address] [place] [address], [facility] Protein (U) [Mass/Vol] Negative Normal NEGATIVE [facility] Comment on above: Order Comment: If no t done in ED No: Do not add to previous draw Performed By: #### 0 0121, 40807, 57877, 46540, 12912 #### [facility] [address] [place] [address], [place] SPEC GRAV 1.017 Normal 1.015-1.020 [facility] Comment on above: Order Comment: If no t done in ED No: Do not add to previous draw Performed By: #### 0 0121, 76523, 03785, 23419, 20105 #### [facility] [address] [place] [address], [facility] APTTon 03-17-2019 aPTT Coag (Bld) [Time] 67.3 s High 25.0-35.0 [facility] Comment on above: Order Comment: No: [...] THIS PURPOSE. Performed By: #### 0 0121, 77986, 55868, 04450, 44800 #### [facility] [address] [place] [address], [facility] BASIC METABOLIC PANELon 02-28 Calcium [Mass/Vol] 9.1 mg/dL Normal 8.6-10.3 [facility] Comment on above: Order Comment: No: D o not add to previous draw Performed By: #### 0 0121, 15576, 09519, 11380, 67051 #### [facility] [address] [place] [address], [facility] Chloride [Moles/Vol] 101 mmol/L Normal 98-107 [facility] Comment on above: Order Comment: No: D o not add to previous draw Performed By: #### 0 0121, 38236, 05167, 17857, 55698 #### [facility] [address] [place] [address], [facility] CO2 [Moles/Vol] 24 mmol/L Normal 21-31 [facility] Comment on above: Order Comment: No: D o not add to previous draw Performed By: #### 0 0121, 04762, 95622, 38561, 34678 #### [facility] [address] [place] [address], [place] Creatinine [Mass/Vol] 1.02 mg/dL Normal 0.70-1.30 [facility] Comment on above: Order Comment: No: D o not add to previous draw Performed By: #### 0 0121, 16134, 86923, 65497, 22278 #### [facility] [address] [place] [address], [place] GFR/1.73 sq M predicted among blacks MDRD (S/P/Bld) [Vol rate/Area] mL/min/{1.73_m2} Normal >60 [facility] Comment on above: Order Comment: No: D o not add to previous draw Performed By: #### 0 0121, 44277, 20372, 63269, 15248 #### [facility] [address] [place] [address], [place] GFR/1.73 sq M predicted among non-blacks MDRD (S/P/Bld) [Vol rate/Area] mL/min/{1.73_m2} Normal >60 [facility] Comment on above: Order Comment: No: D o not add to previous draw Performed By: #### 0 0121, 47061, 39993, 04309, 63938 #### [facility] [address] [place] [address], [place] Glucose [Mass/Vol] 102 mg/dL High 70-100 [facility] Comment on above: Order Comment: No: D o not add to previous draw Performed By: #### 0 0121, 48816, 37124, 31928, 84740 #### [facility] [address] [place] [address], [place] Potassium [Moles/Vol] 3.7 mmol/L Normal 3.5-5.1 [facility] Comment on above: Order Comment: No: D o not add to previous draw Performed By: #### 0 0121, 13561, 73234, 16021, 54316 #### [facility] [address] [place] [address], [facility] Sodium [Moles/Vol] 135 mmol/L Low 136-145 [facility] Comment on above: Order Comment: No: D o not add to previous draw Performed By: #### 0 0121, 52926, 97534, 07074, 49283 #### [facility] [address] [place] [address], [facility] Urea nitrogen [Mass/Vol] 18 mg/dL Normal 7-25 [facility] Comment on above: Order Comment: No: D o not add to previous draw Performed By: #### 0 0121, 88203, 55892, 66807, 02202 #### [facility] [address] CBC COMPLETE BLOOD COUNTon - Erythrocyte distribution width (RBC) [Ratio] 12.9 % Normal 11.5-15.0 [facility] Comment on above: Order Comment: No: D o not add to previous draw Performed By: #### 0 0121, 04056, 64439, 29907, 51691 #### [facility] [address] [place] [address], [facility] Hematocrit (Bld) [Volume fraction] 50.6 % High 39.0-50.0 [facility] Comment on above: Order Comment: No: D o not add to previous draw Performed By: #### 0 0121, 44462, 77820, 09161, 67198 #### [facility] [address] [place] [address], [facility] Hemoglobin (Bld) [Mass/Vol] 16.1 g/dL Normal 13.0-17.0 [facility] Comment on above: Order Comment: No: D o not add to previous draw Performed By: #### 0 0121, 62208, 57355, 54750, 78565 #### [facility] [address] [place] [address], [facility] MCH (RBC) [Entitic mass] 28.6 pg Normal 27.0-33.0 [facility] Comment on above: Order Comment: No: D o not add to previous draw Performed By: #### 0 0121, 00253, 18561, 20200, 86310 #### [facility] [address] [place] [address], [facility] MCHC (RBC) [Mass/Vol] 31.8 g/dL Low 32.0-35.0 [facility] Comment on above: Order Comment: No: D o not add to previous draw Performed By: #### 0 0121, 82809, 10219, 12083, 42378 #### [facility] [address] [place] [address], [facility] MCV (RBC) [Entitic vol] 90.0 fL Normal 82.0-98.0 [facility] Comment on above: Order Comment: No: D o not add to previous draw Performed By: #### 0 0121, 31775, 22570, 71904, 88855 #### [facility] [address] [place] [address], [facility] Nucleated RBC/100 WBC (Bld) [Ratio] 0 % Normal 0-0 [facility] Comment on above: Order Comment: No: D o not add to previous draw Performed By: #### 0 0121, 03978, 29287, 10836, 54568 #### [facility] [address] [place] [address], [place] PLAT CNT 274 10*3/uL Normal 150-400 [facility] Comment on above: Order Comment: No: D o not add to previous draw Performed By: #### 0 0121, 77590, 37008, 54604, 48747 #### [facility] [address] [place] [address], [facility] RBC (Bld) [#/Vol] 5.62 10*6/uL Normal 4.20-5.70 [facility] Comment on above: Order Comment: No: D o not add to previous draw Performed By: #### 0 0121, 84891, 15922, 89232, 77862 #### [facility] [address] WBC (Bld) [#/Vol] 9.65 10*3/uL Normal 4.00-10.60 [facility] Comment on above: Order Comment: No: D o not add to previous draw Performed By: #### 0 0121, 47435, 07360, 51028, 88877 #### [facility] [address] [facility] [address] Cardiovascular Lab Reporton 03-17-2019 Cardiovascular Lab Report [facility] MR #: [id number] Department of Physician: Madan Parsons MAmanda Division of Service Date: 03/16/2019 Cardiology Birthdate: 1965 Adult Cardiovascular Room #: 3AB [id number] [facility] [address] [place] [address] Cardiovascular Laboratory Report CLINICAL PRESENTATION: The patient is a 53-year-old male, who was transferred from the [facility], due to his symptoms of shortness [...] guidance and a micropuncture access technique, a 6-Bulgarian sheath was placed in the right internal jugular vein. A Clark catheter was then advanced under fluoroscopic hemodynamic monitor to the right atrium. Pressure was obtained in the right atrium, right ventricle, pulmonary artery, pulmonary capillary wedge position. Oxygen saturations drawn from the pulmonary artery and the Nanci cardiac output and cardiac index were calculated. The Clark catheter was then removed. Next, a 6-Bulgarian Terumo Glidesheath slender was placed in the right radial artery. The radial anti-vasospasm cocktail of nitroglycerin 100 mcg was administered through the sheath. All catheter exchanges were made over the BABADU guidewire. A 5-Bulgarian [place] catheter was used to engage the left [...] P Krys Day M.D. Date Dict: 03/16/2019/12:03 P/Krys Day M.D. Date Trans: 03/17/2019 05:03 A/bessie [id number] cc: Titus Villegas M.D. [address], [facility] Jhoan [facility] [id number] Normal [facility] MAGNESIUM BLOODon 03-17-2019 Magnesium [Mass/Vol] 2.2 mg/dL Normal 1.9-2.7 [facility] Comment on above: Order Comment: No: D o not add to previous draw Performed By: #### 0 0121, 75138, 17840, 52020, 24232 #### [facility] [address] UFH HEPARIN ASSAYon 03-17-20 19 UNFRACTIONATED HEPARIN 0.30 IU/mL Normal 0.30-0.70 [facility] Comment on above: Result Comment: [employer] roxaban and Apixaban will interfere with the anti Xa assay used to monitor UFH and LMWH. Performed By: #### 0 0121, 16669, 32387, 96878, 05257 #### [facility] [address] APTTon 03-16-2019 aPTT Coag (Bld) [Time] 63.7 s High 25.0-35.0 [facility] Comment on above: Order Comment: No: [...] OF HEPARIN. Performed By: #### 0 0121, 24837, 46707, 93277, 25536 #### [address] aPTT Coag (Bld) [Time] 87.5 s Critically high 25.0-35.0 [facility] Comment on above: Order Comment: No: [...] OF HEPARIN. Performed By: #### 0 0121, 23952, 58702, 87418, 25053 #### [address] Cardiovascular Lab Reporton 03-16-2019 Cardiovascular Lab Report [facility] Patient Name: [facility] MR #: [id number] Department of Physician: Ilan Danielson MD Division of Service Date: 03/16/2019 Cardiology Birthdate: 1965 Adult Cardiovascular Room #: 3AB [id number] [place] [address] Cardiovascular Laboratory Report PROCEDURE: Transesophageal echocardiogram and cardioversion. INDICATION: Atrial fibrillation. PROCEDURE IN DETAIL: An informed consent was obtained from the patient after explaining indications, risks, benefits, and alternatives. The patient understood and agreed and signed the consent form. The patient was brought to the section laborer and GERMAN/transesophageal echocardiogram was performed under [...] A/Ilan Danielson MD Date Trans: 03/16/2019 07:28 P/tylero [id number] cc: Titus Villegas M.D. [address] [facility] [address] Normal [facility] ERYTHROPOIETIN [id number] 03-16 ERYTHROPOIETIN 7 mU/mL Normal 4-27 [facility] Comment on above: Order Comment: << [...] recombinant EPO ([facility] [id number]). Performed by Evi, [address] [place] [id number] [email or web address], Jann Somers MD - Lab. Director UFH HEPARIN ASSAYon 03-16-20 19 UNFRACTIONATED HEPARIN 0.43 IU/mL Normal 0.30-0.70 [facility] Comment on above: Result Comment: [employer] roxaban and Apixaban will interfere with the anti Xa assay used to monitor UFH and LMWH. Performed By: #### 0 0121, 97792, 21536, 10615, 63510 #### [facility] [address] UNFRACTIONATED HEPARIN 0.53 IU/mL Normal 0.30-0.70 [facility] Comment on above: Result Comment: [place]ef[place] roxaban and Apixaban will interfere with the anti Xa assay used to monitor UFH and LMWH. Performed By: #### 0 0121, 17763, 68781, 35411, 50818 #### [facility] [address] [place] [address], [facility] APTTon 03-15-2019 aPTT Coag (Bld) [Time] 74.0 s Critically high 25.0-35.0 [facility] Comment on above: Order Comment: No: [...] AT 2127 Performed By: #### 0 0121, 97992, 17109, 65214, 02591 #### [facility] [address] [place] [address], [facility] aPTT Coag (Bld) [Time] 84.1 s Critically high 25.0-35.0 [facility] Comment on above: Order Comment: [...] OF HEPARIN. Performed By: #### 0 0121, 52143, 95418, 27524, 74638 #### [facility] [address] [facility] [place] [address], [facility] aPTT Coag (Bld) [Time] 59.2 s High 25.0-35.0 [facility] Comment on above: Order Comment: [...] THIS PURPOSE. Performed By: #### 0 0121, 17916, 68043, 12603, 65327 #### [facility] [address] [place] [address], [facility] BASIC METABOLIC PANELon 06- Calcium [Mass/Vol] 9.9 mg/dL Normal 8.6-10.3 [facility] Comment on above: Order Comment: << On admission If not done in ED>> No: Do not add to previous draw Performed By: #### 0 0121, 17359, 93290, 40844, 57357 #### [facility] [address] [place] [address], [facility] Chloride [Moles/Vol] 101 mmol/L Normal 98-107 [facility] Comment on above: Order Comment: << On admission If not done in ED>> No: Do not add to previous draw Performed By: #### 0 0121, 93723, 23096, 21141, 54935 #### [facility] [address] [place] [address], [facility] CO2 [Moles/Vol] 25 mmol/L Normal 21-31 [facility] Comment on above: Order Comment: << On admission If not done in ED>> No: Do not add to previous draw Performed By: #### 0 0121, 44132, 06793, 00773, 26018 #### [facility] [address] [place] [address], [facility] Creatinine [Mass/Vol] 1.02 mg/dL Normal 0.70-1.30 [facility] Comment on above: Order Comment: << On admission If not done in ED>> No: Do not add to previous draw Performed By: #### 0 0121, 98678, 47584, 65610, 52405 #### [facility] [address] [place] [address], [facility] GFR/1.73 sq M predicted among blacks MDRD (S/P/Bld) [Vol rate/Area] mL/min/{1.73_m2} Normal >60 [facility] Comment on above: Order Comment: << On admission If not done in ED>> No: Do not add to previous draw Performed By: #### 0 0121, 52126, 46726, 41071, 83120 #### [facility] [address] [place] [address], [place] GFR/1.73 sq M predicted among non-blacks MDRD (S/P/Bld) [Vol rate/Area] mL/min/{1.73_m2} Normal >60 [facility] Comment on above: Order Comment: << On admission If not done in ED>> No: Do not add to previous draw Performed By: #### 0 0121, 34906, 55184, 64655, 99707 #### [facility] [address] [place] [address], [place] Glucose [Mass/Vol] 100 mg/dL Normal 70-100 [facility] Comment on above: Order Comment: << On admission If not done in ED>> No: Do not add to previous draw Performed By: #### 0 0121, 62750, 89069, 15469, 64398 #### [facility] [address] [place] [address], [facility] Potassium [Moles/Vol] 4.0 mmol/L Normal 3.5-5.1 [facility] Comment on above: Order Comment: << On admission If not done in ED>> No: Do not add to previous draw Performed By: #### 0 0121, 24165, 47807, 64101, 37578 #### [facility] [address] [place] [address], [place] Sodium [Moles/Vol] 135 mmol/L Low 136-145 [facility] Comment on above: Order Comment: << On admission If not done in ED>> No: Do not add to previous draw Performed By: #### 0 0121, 13392, 93632, 19728, 97094 #### [facility] [address] Urea nitrogen [Mass/Vol] 24 mg/dL Normal 7-25 [facility] Comment on above: Order Comment: << On admission If not done in ED>> No: Do not add to previous draw Performed By: #### 0 0121, 36912, 39677, 51966, 19376 #### [facility] [address] CBC COMPLETE BLOOD COUNTon 0 - Erythrocyte distribution width (RBC) [Ratio] 13.1 % Normal 11.5-15.0 [facility] Comment on above: Order Comment: << On admission If not done in ED>> No: Do not add to previous draw Performed By: #### 0 0121, 48997, 85352, 57226, 92369 #### [facility] [address] Hematocrit (Bld) [Volume fraction] 53.6 % High 39.0-50.0 [facility] Comment on above: Order Comment: << On admission If not done in ED>> No: Do not add to previous draw Performed By: #### 0 0121, 15800, 74244, 39372, 32189 #### [facility] [address] Hemoglobin (Bld) [Mass/Vol] 17.4 g/dL High 13.0-17.0 [facility] Comment on above: Order Comment: << On admission If not done in ED>> No: Do not add to previous draw Performed By: #### 0 0121, 11093, 72135, 84730, 55748 #### [facility] [address] [place] [address], [facility] MCH (RBC) [Entitic mass] 28.6 pg Normal 27.0-33.0 [facility] Comment on above: Order Comment: << On admission If not done in ED>> No: Do not add to previous draw Performed By: #### 0 0121, 72217, 58778, 18339, 48018 #### [facility] [address] [facility] [place] [address] MCHC (RBC) [Mass/Vol] 32.5 g/dL Normal 32.0-35.0 [facility] Comment on above: Order Comment: << On admission If not done in ED>> No: Do not add to previous draw Performed By: #### 0 0121, 52711, 37781, 27424, 90348 #### [facility] [address] MCV (RBC) [Entitic vol] 88.0 fL Normal 82.0-98.0 [facility] Comment on above: Order Comment: << On admission If not done in ED>> No: Do not add to previous draw Performed By: #### 0 0121, 82822, 79296, 36826, 55376 #### [facility] [address] Nucleated RBC/100 WBC (Bld) [Ratio] 0 % Normal 0-0 [facility] Comment on above: Order Comment: << On admission If not done in ED>> No: Do not add to previous draw Performed By: #### 0 0121, 21240, 05479, 21104, 30339 #### [facility] [address] [facility] [place] [address], [facility] PLAT CNT 286 10*3/uL Normal 150-400 [facility] Comment on above: Order Comment: << On admission If not done in ED>> No: Do not add to previous draw Performed By: #### 0 0121, 06838, 43862, 41319, 65573 #### [facility] [address] [facility] [address], [facility] RBC (Bld) [#/Vol] 6.09 10*6/uL High 4.20-5.70 [facility] Comment on above: Order Comment: << On admission If not done in ED>> No: Do not add to previous draw Performed By: #### 0 0121, 57665, 06218, 14027, 20681 #### [facility] [address] [place] [address], [facility] WBC (Bld) [#/Vol] 10.49 10*3/uL Normal 4.00-10.60 [facility] Comment on above: Order Comment: << On admission If not done in ED>> No: Do not add to previous draw Performed By: #### 0 0121, 80648, 38527, 22073, 55173 #### [facility] [address] [place], [place] [id number] [place] [address] LIPID PROFILEon 03-15-2019 Cholesterol [Mass/Vol] 140 mg/dL Normal 120-200 [facility] Comment on above: Order Comment: << On admission If not done in ED>> No: Do not add to previous draw Result Comment: CHOL ESTEROL REFERENCE RANGE: 20 YEARS AND OLDER CARDIOVASCULAR RISK Less than 200 mg/dl Low Risk 200 to 239 mg/dl Borderline Risk 240 mg/dl and greater High Risk Performed By: #### 0 0121, 75065, 34197, 31329, 31451 #### [facility] [address] [place] [address], [facility] Cholesterol in HDL [Mass/Vol] 38 mg/dL Normal 23-92 [facility] Comment on above: Order Comment: [...] High Risk Performed By: #### 0 0121, 68567, 23616, 91994, 25861 #### [facility] [address] [place] [address], [facility] Cholesterol in LDL [Mass/Vol] 88 mg/dL Normal 0-130 [facility] Comment on above: Order Comment: << On admission If not done in ED>> No: Do not add to previous draw Result Comment: LDL IS A CALCULATION LDL IS ONLY VALID IF THE TRIG IS LESS THAN 400. Performed By: #### 0 0121, 90310, 56501, 80504, 74456 #### [facility] [address] [place] [address], [facility] Cholesterol.total/Ch olesterol in HDL [Mass ratio] 3.7 {ratio} Normal .0-4.5 [facility] Comment on above: Order Comment: << On admission If not done in ED>> No: Do not add to previous draw Performed By: #### 0 0121, 02121, 48879, 25579, 47807 #### [facility] [address] [place] [address], [facility] NON-HDL CHOLESTEROL 102 mg/dL Normal [facility] Comment on above: Order Comment: << On admission If not done in ED>> No: Do not add to previous draw Performed By: #### 0 0121, 32776, 37216, 36014, 57751 #### [facility] [address] [place] [address], [facility] Triglyceride [Mass/Vol] 70 mg/dL Normal 40-149 [facility] Comment on above: Order Comment: << On admission If not done in ED>> No: Do not add to previous draw Result Comment: TRIG LYCERIDE REFERENCE RANGE: 20 YEARS AND OLDER CARDIOVASCULAR RISK LESS THAN 150 mg/dl LOW RISK 150 TO 199 mg/dl BORDERLINE RISK 200 mg/dl AND GREATER HIGH RISK Performed By: #### 0 0121, 95480, 23151, 89083, 64290 #### [facility] [address] [place] [address], [facility] VLDL CHOL 14 mg/dL Normal 0-40 [facility] Comment on above: Order Comment: << On admission If not done in ED>> No: Do not add to previous draw Performed By: #### 0 0121, 13934, 01554, 65278, 16780 #### [facility] [address] [place] [address], [facility] TROPONIN-Ion 03-15-2019 Troponin I.cardiac [Mass/Vol] 0.01 ng/mL Normal 0.00-0.04 [facility] Comment on above: Order Comment: << On admission If not done in ED>> No: Do not add to previous draw Result Comment: REFE RENCE RANGES: 0.00 - 0.04 ng/ml NORMAL 0.05 - 0.50 ng/ml INDETERMINATE > 0.50 ng/ml CONSISTENT WITH AN M.I. Performed By: #### 0 0121, 25505, 07202, 64981, 97771 #### [facility] [address] [place] [address], [facility] UFH HEPARIN ASSAYon 03-15-20 19 UNFRACTIONATED HEPARIN 0.62 IU/mL Normal 0.30-0.70 [facility] Comment on above: Order Comment: No: D o not add to previous draw Result Comment: [employer] roxaban and Apixaban will interfere with the anti Xa assay used to monitor UFH and LMWH. Performed By: #### 0 0121, 61257, 87526, 16914, 18114 #### [facility] [address] [facility] [place] [address], [facility] UNFRACTIONATED HEPARIN 0.92 IU/mL Critically high 0.30-0.70 [facility] Comment on above: Result Comment: [employer] roxaban and Apixaban will interfere with the anti Xa assay used to monitor UFH and LMWH. RESULTS CHECKED AND CALLED. ACCURATELY READ BACK BY DAXA MONTEJO RN @ 1752 Performed By: #### 0 0121, 23707, 83785, 90651, 36610 #### [facility] [address] [place] [address], [facility] UNFRACTIONATED HEPARIN 0.90 IU/mL Critically high 0.30-0.70 [facility] Comment on above: Result Comment: [employer] roxaban and Apixaban will interfere with the anti Xa assay used to monitor UFH and LMWH. RESULTS CHECKED AND CALLED. ACCURATELY READ BACK BY DAXA MONTEJO RN @ 6636 Performed By: #### 0 0121, 49090, 00376, 57027, 39516 #### [facility] [address] APTTon 03-14-2019 aPTT Coag (Bld) [Time] 32.8 s Normal 25.0-35.0 [facility] Comment on above: Order Comment: No: [...] PURPOSE. Performed By: #### 5 7307 #### [facility] [address] [facility]. [address] BNP (B-TYPE NATRIURETIC PEPT PACHECO)on 03-14-2019 Natriuretic peptide B (Bld) [Mass/Vol] 112 pg/mL High 0-100 [facility] Comment on above: Order Comment: If no t done in ED No: Do not add to previous draw Result Comment: Give n the appropriate clinical setting a BNP result of >100 pg/mL indicates congestive heart failure. Performed By: #### 8 5123, 69012 #### [facility] [address] CBC W/DIFFon 03-14-2019 ABS BASOPHILS 0.1 10*3/uL Normal 0.0-0.2 [facility] Comment on above: Order Comment: If no t done in ED No: Do not add to previous draw Performed By: #### 5 0103 #### [facility] [address] ABS IMM GRANS 0.1 10*3/uL Normal 0.0-0.2 [facility] Comment on above: Order Comment: If no t done in ED No: Do not add to previous draw Performed By: #### 5 0103 #### [facility] [address] [place] [address], [facility] ABS NEUTROPHILS 7.1 10*3/uL Normal 1.6-7.6 [facility] Comment on above: Order Comment: If no t done in ED No: Do not add to previous draw Performed By: #### 5 0103 #### [facility] [address] [place] [address], [facility] Basophils/100 WBC (Bld) 1.0 % Normal 0.0-1.0 [facility] Comment on above: Order Comment: If no t done in ED No: Do not add to previous draw Performed By: #### 5 0103 #### [facility] [address] [place] [address], [facility] Eosinophils (Bld) [#/Vol] 0.3 10*3/uL Normal 0.0-0.5 [facility] Comment on above: Order Comment: If no t done in ED No: Do not add to previous draw Performed By: #### 5 0103 #### [facility] [address] [place] [address], [facility] Eosinophils/100 WBC (Bld) 2.8 % Normal 0.0-6.0 [facility] Comment on above: Order Comment: If no t done in ED No: Do not add to previous draw Performed By: #### 5 0103 #### [facility] [address] [place] [address], [facility] Erythrocyte distribution width (RBC) [Ratio] 13.2 % Normal 11.5-15.0 [facility] Comment on above: Order Comment: If no t done in ED No: Do not add to previous draw Performed By: #### 5 0103 #### [facility] [address] [place] [address] [place] [address] Hematocrit (Bld) [Volume fraction] 53.8 % High 39.0-50.0 [facility] Comment on above: Order Comment: If no t done in ED No: Do not add to previous draw Performed By: #### 5 0103 #### [facility] [address] [place] [address], [facility] Hemoglobin (Bld) [Mass/Vol] 17.2 g/dL High 13.0-17.0 [facility] Comment on above: Order Comment: If no t done in ED No: Do not add to previous draw Performed By: #### 5 0103 #### [facility] [address] [place] [address], [facility] IMMATURE GRANS 0.5 % Normal 0.0-1.0 The [facility] slime [facility] Comment on above: Order Comment: If no t done in ED No: Do not add to previous draw Performed By: #### 5 0103 #### [facility] [address] [place] [address], [facility] Lymphocytes (Bld) [#/Vol] 2.4 10*3/uL Normal 1.2-4.0 [facility] Comment on above: Order Comment: If no t done in ED No: Do not add to previous draw Performed By: #### 5 0103 #### [facility] [address] [place] [address], [facility] Lymphocytes/100 WBC (Bld) 21.0 % Normal 20.0-45.0 [facility] Comment on above: Order Comment: If no t done in ED No: Do not add to previous draw Performed By: #### 5 0103 #### [facility] [address] [place] [id number], [facility] MCH (RBC) [Entitic mass] 28.9 pg Normal 27.0-33.0 [facility] Comment on above: Order Comment: If no t done in ED No: Do not add to previous draw Performed By: #### 5 0103 #### [facility] [address] [place] [address], [facility] MCHC (RBC) [Mass/Vol] 32.0 g/dL Normal 32.0-35.0 [facility] Comment on above: Order Comment: If no t done in ED No: Do not add to previous draw Performed By: #### 5 0103 #### [facility] [address] [place] [address], [facility] MCV (RBC) [Entitic vol] 90.4 fL Normal 82.0-98.0 [facility] Comment on above: Order Comment: If no t done in ED No: Do not add to previous draw Performed By: #### 5 0103 #### [facility] [address] [place] [id number], [facility] Monocytes (Bld) [#/Vol] 1.4 10*3/uL High 0.1-1.0 [facility] Comment on above: Order Comment: If no t done in ED No: Do not add to previous draw Performed By: #### 5 0103 #### [facility] [address] [facility] [place] [place] [id number], [facility] MONOS 12.2 % High 5.0-12.0 [facility] Comment on above: Order Comment: If no t done in ED No: Do not add to previous draw Performed By: #### 5 0103 #### [facility] [address] [place] [id number], [facility] Neutrophils/100 WBC (Bld) 62.5 % Normal 40.0-72.0 [facility] Comment on above: Order Comment: If no t done in ED No: Do not add to previous draw Performed By: #### 5 0103 #### [facility] [address] [place] [id number], [facility] Nucleated RBC/100 WBC (Bld) [Ratio] 0 % Normal 0-0 [facility] Comment on above: Order Comment: If no t done in ED No: Do not add to previous draw Performed By: #### 5 0103 #### [facility] [address] [place] [address], [facility] PLAT CNT 321 10*3/uL Normal 150-400 [facility] Comment on above: Order Comment: If no t done in ED No: Do not add to previous draw Performed By: #### 5 0103 #### [facility] [address] [place] [address], [facility] RBC (Bld) [#/Vol] 5.95 10*6/uL High 4.20-5.70 [facility] Comment on above: Order Comment: If no t done in ED No: Do not add to previous draw Performed By: #### 5 0103 #### [facility] [address] [place] [address], [facility] WBC (Bld) [#/Vol] 11.32 10*3/uL High 4.00-10.60 [facility] Comment on above: Order Comment: If no t done in ED No: Do not add to previous draw Performed By: #### 5 0103 #### [facility] [address] COMP METABOLIC PANELon 03-14 Albumin [Mass/Vol] 4.3 g/dL Normal 3.5-5.7 [facility] Comment on above: Order Comment: << On admission If not done in ED>> No: Do not add to previous draw Performed By: #### 0 0121, 07629, 58487, 75340, 48486 #### [facility] [address] [place] [address], [facility] ALKALINE PHOSPH 59 IU/L Normal 34-104 [facility] Comment on above: Order Comment: << On admission If not done in ED>> No: Do not add to previous draw Performed By: #### 0 0121, 30274, 48896, 85515, 06925 #### [facility] [address] [place] [address], [place] ALT [Catalytic activity/Vol] 21 U/L Normal 7-52 [facility] Comment on above: Order Comment: << On admission If not done in ED>> No: Do not add to previous draw Performed By: #### 0 0121, 74069, 57974, 09192, 22145 #### [facility] [address] [place] [address], [place] AST [Catalytic activity/Vol] 26 U/L Normal 13-39 [facility] Comment on above: Order Comment: << On admission If not done in ED>> No: Do not add to previous draw Performed By: #### 0 0121, 90952, 87596, 64199, 90956 #### [facility] [address] [place] [address], [place] Bilirubin [Mass/Vol] 1.1 mg/dL High 0.3-1.0 [facility] Comment on above: Order Comment: << On admission If not done in ED>> No: Do not add to previous draw Performed By: #### 0 0121, 47182, 32608, 32684, 45187 #### [facility] [address] [place] [address], [place] Calcium [Mass/Vol] 10.5 mg/dL High 8.6-10.3 [facility] Comment on above: Order Comment: << On admission If not done in ED>> No: Do not add to previous draw Performed By: #### 0 0121, 74736, 06967, 24193, 72228 #### [facility] [address] [place] [address], [place] Chloride [Moles/Vol] 98 mmol/L Normal 98-107 [facility] Comment on above: Order Comment: << On admission If not done in ED>> No: Do not add to previous draw Performed By: #### 0 0121, 06798, 69036, 56262, 53152 #### [facility] [address] [place] [address], [place] CO2 [Moles/Vol] 31 mmol/L Normal 21-31 [facility] Comment on above: Order Comment: << On admission If not done in ED>> No: Do not add to previous draw Performed By: #### 0 0121, 40987, 82951, 34355, 39665 #### [facility] [address] [place] [address], [facility] Creatinine [Mass/Vol] 1.36 mg/dL High 0.70-1.30 [facility] Comment on above: Order Comment: << On admission If not done in ED>> No: Do not add to previous draw Performed By: #### 0 0121, 75952, 14594, 45314, 14172 #### [facility] [address] [facility] [place] [address], [facility] GFR/1.73 sq M predicted among blacks MDRD (S/P/Bld) [Vol rate/Area] mL/min/{1.73_m2} Normal >60 [facility] Comment on above: Order Comment: << On admission If not done in ED>> No: Do not add to previous draw Performed By: #### 0 0121, 88908, 96893, 08754, 55200 #### [facility] [address] [facility] [place] [address], [facility] GFR/1.73 sq M predicted among non-blacks MDRD (S/P/Bld) [Vol rate/Area] 55 ml/min/1.73sq m Abnormal >60 [facility] Comment on above: Order Comment: << On admission If not done in ED>> No: Do not add to previous draw Performed By: #### 0 0121, 44792, 69380, 32155, 14536 #### [facility] [address] [place] [address], [place] Glucose [Mass/Vol] 81 mg/dL Normal 70-100 [facility] Comment on above: Order Comment: << On admission If not done in ED>> No: Do not add to previous draw Performed By: #### 0 0121, 36301, 58174, 35872, 83363 #### [facility] [address] [place] [address], [place] Potassium [Moles/Vol] 3.8 mmol/L Normal 3.5-5.1 [facility] Comment on above: Order Comment: << On admission If not done in ED>> No: Do not add to previous draw Performed By: #### 0 0121, 03715, 44440, 72205, 27560 #### [facility] [address] [place] [address], [place] Protein [Mass/Vol] 7.4 g/dL Normal 6.0-8.3 [facility] Comment on above: Order Comment: << On admission If not done in ED>> No: Do not add to previous draw Performed By: #### 0 0121, 97260, 30673, 81201, 73536 #### [facility] [address] [place] [address], [place] Sodium [Moles/Vol] 138 mmol/L Normal 136-145 [facility] Comment on above: Order Comment: << On admission If not done in ED>> No: Do not add to previous draw Performed By: #### 0 0121, 20822, 92970, 40721, 04661 #### [facility] [address] [place] [address], [place] Urea nitrogen [Mass/Vol] 26 mg/dL High 7-25 [facility] Comment on above: Order Comment: << On admission If not done in ED>> No: Do not add to previous draw Performed By: #### 0 0121, 97061, 12294, 95711, 74801 #### [facility] [address] [place] [address], [place] FREE T4on 03-14-2019 Free T4 [Mass/Vol] 1.18 ng/dL Normal 0.71-1.85 [facility] Comment on above: Order Comment: If no t done in ED No: Do not add to previous draw Performed By: #### 0 0121, 88992, 18273, 17828, 65552 #### [facility] [address] HEMOGLOBIN A1Con 03-14-2019 HbA1c (Bld) [Mass fraction] 103 mg/dL Normal 70-126 [facility] Comment on above: Order Comment: If no t done in ED No: Do not add to previous draw Performed By: #### 8 5123, 92377 #### [facility] [address] HbA1c (Bld) [Mass fraction] 5.2 % Normal 4.0-6.0 [facility] Comment on above: Order Comment: If no t done in ED No: Do not add to previous draw Performed By: #### 8 5123, 75863 #### [facility] [address] [facility]. [address] History and Physicalon 03-14 History and Physical MR#: [id number] [facility] Pt. Name: Argelia Crain Admitted: 03/14/2019 Date of : 1965 Attending Physician: Dimitry Lyles M.D. Room #: [id number] Discharge Date: HISTORY AND PHYSICAL CHIEF COMPLAINT: Atrial fibrillation and bilateral lower extremity swelling. HISTORY OF PRESENT ILLNESS: Mr. Whitt is a 53-year-old male with the past medical history of depression and GERD, who was transferred from [facility] for atrial fibrillation and congestive heart failure. The patient states that he has been complaining of progressively worsening bilateral lower extremity swelling for the last four months. The patient states that he has never had bilateral lower extremity swelling like this in the past. The patient [facility] and was sent to [facility]. At [facility], EKG showed atrial fibrillation with RVR. Chest x-ray showed bilateral pulmonary venous congestion. The patient was admitted for one day at [facility] and was started on metoprolol 75 mg twice a day and Eliquis. The patient was also diuresed with Lasix and put out around 2.8 L of urine. An echocardiogram was done at [facility], which showed a reduced ejection fraction, [...] drug use. 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 FAMILY HISTORY: Father [...] he received metoprolol 75 mg b.i.d. at [facility]. His heart rate is currently in the 80s to 90s. Will start him on metoprolol 12.5 mg BID. The patient received a dose of Eliquis [facility] [facility], will discontinue Eliquis and start him on heparin drip in the evening around 10 p.m. His TSH and T4 were normal at [facility]. If the patient does not convert back to normal sinus rhythm, the patient will have GERMAN/cardioversion on Saturday. 2. Acute systolic CHF exacerbation: An echocardiogram at [facility] showed reduced ejection fraction. The patient was diuresed with Lasix 40 mg IV twice a day at [place] and diuresed around 2.8 L. Will start [...] Lyles M.D. Date Trans: 03/14/2019 01:33 P/bessie [id number] Normal [facility] MAGNESIUM BLOODon 03-14-2019 Magnesium [Mass/Vol] 2.4 mg/dL Normal 1.9-2.7 [facility] Comment on above: Order Comment: << ON ADMISSION If not done in ED>> No: Do not add to previous draw Performed By: #### 0 0121, 02484, 48719, 12503, [address] #### [place] [address], [facility] PORTABLE CHEST 1 VIEWon 02-28 PORTABLE CHEST 1 VIEW [facility] Department of Radiology [address] [place] [id number] ======== Patient Name: ARGELIA CRAIN : 1965 Sex: M Age: Race: NA Pt. Location: [id number] Patient Status: I Ordered Date: 03/14/2019 10:35:00 [...] findings. Electronically signed by:Yenni Osuna. Transcribed by: [email or web address], User Resident: KAREEM LIAO Electronically Signed by: YENNI OSUNA @ 03/14/2019 04:53 PM I personally read this/these film(s) with this resident Normal [facility] Comment on above: Order Comment: R/O P ulmonary Edema TROPONIN-Ion 03-14-2019 Troponin I.cardiac [Mass/Vol] 0.00 ng/mL Normal 0.00-0.04 [facility] Comment on above: Order Comment: << On admission If not done in ED>> No: Do not add to previous draw Result Comment: REFE RENCE RANGES: 0.00 - 0.14 ng/ml NEGATIVE 0.15 - 0.25 ng/ml INDETERMINATE > 0.25 ng/ml INDICATIVE OF AN M.I. Performed By: #### 0 0121, 68066, 32803, 04350, 39931 #### [facility] [address] [place] [address], [facility] Troponin I.cardiac [Mass/Vol] 0.01 ng/mL Normal 0.00-0.04 [facility] Comment on above: Order Comment: No: D o not add to previous draw Result Comment: REFE RENCE RANGES: 0.00 - 0.04 ng/ml NORMAL 0.05 - 0.50 ng/ml INDETERMINATE > 0.50 ng/ml CONSISTENT WITH AN M.I. Performed By: #### 0 0121, 34802, 36739, 65201, 75396 #### [facility] [address] [place] [address], [place] TSH3on 03-14-2019 TSH 3RD GENERATION 2.05 uIU/mL Normal 0.34-5.60 [facility] Comment on above: Order Comment: TSH3 with Reflex canceled. TSH3 ordered. Performed By: #### 0 0121, 54651, 33630, 78141, 77396 #### [facility] [address] CBC With Platelet No Differe ntialon 03-04-2018 Erythrocyte distribution width Auto Ratio (RBC) 13.9 % Normal 11.5-14.5 [facility] Erythrocytes (RBC) 5.34 10*6/uL Normal 4.70-6.10 [facility] Hematocrit (HCT) 49.8 % Normal 42.0-52.0 [facility] Hemoglobin mass conc (Bld) 16.4 g/dL Normal 14.0-18.0 [facility] MCH 30.8 pg Normal 27.0-31.3 [facility] MCHC mass conc (RBC) 33.0 % Normal 33.0-37.0 [facility] MCV 93.3 fL Normal 80.0-100.0 [facility] Platelets 281 10*3/uL Normal 130-400 [facility] WBC (Leukocytes) 9.3 10*3/uL Normal 4.8-10.8 [facility] Comprehensive Metabolic Pane gian 03-04-2018 Alanine aminotransferase (ALT) 20 U/L Normal 0-41 [facility] Albumin 4.6 g/dL Normal 3.9-4.9 [facility] Alkaline phosphatase (ALP) 56 U/L Normal 35-104 [facility] Anion gap 18 mmol/L Critically high 7-13 [facility] Aspartate aminotransferase (AST) 18 U/L Normal 0-40 [facility] Bilirubin (total) 0.7 mg/dL Normal 0.0-1.2 [facility] Calcium 9.4 mg/dL Normal 8.6-10.2 [facility] Chloride 103 mmol/L Normal 98-107 [facility] CO2 20 mmol/L Low 22-29 [facility] Creatinine 0.78 mg/dL Normal 0.70-1.20 [facility] eGFR (black) mL/min/{1.73_m2} Normal >60 [facility] Comment on above: Result Comment: >60 mL/min/1.73m2 EGFR, calc. for ages 18 and older using theMDRD formula (not corrected for weight), is valid for stablerenal function. eGFR (MDRD) mL/min/{1.73_m2} Normal >60 [facility] Comment on above: Result Comment: >60 mL/min/1.73m2 EGFR, calc. for ages 18 and older using theMDRD formula (not corrected for weight), is valid for stablerenal function. Globulin 2.7 g/dL Normal 2.3-3.5 [facility] Glucose mass conc 91 mg/dL Normal 74-109 [facility] Potassium molar conc 4.1 mmol/L Normal 3.5-5.1 [facility] Protein 7.3 g/dL Normal 6.4-8.1 [facility] Sodium 141 mmol/L Normal 132-144 [facility] Urea nitrogen 15 mg/dL Normal 6-20 [facility] Hemoglobin A1con 03-04-2018 Hemoglobin A1c/Hemoglobin.total mass fraction (Bld) 5.5 % Normal 4.8-5.9 [facility] Lipid Panelon 03-04-2018 Cholesterol 167 mg/dL Normal 0-199 [facility] Comment on above: Result Comment: ATP III Cholesterol classification is Desirable. HDL Cholesterol 47 mg/dL Normal 40-59 [facility] Comment on above: Result Comment: ATP III HDL Cholesterol Classification is Desirable.Expected Values:Males: >55 = No Risk 35-55 = Moderate Risk <35 = High RiskFemales: >65 = No Risk 45-65 = Moderate Risk <45 = High RiskNCEP Guidelines: Third Report January 2001>59 = negative risk factor for CHD<40 = major risk factor for CHD LDL Cholesterol 99 mg/dL Normal 0-129 [facility] Comment on above: Result Comment: ATP III LDL Classification is Optimal. Triglyceride 105 mg/dL Normal 0-200 [facility] Comment on above: Result Comment: ATP III Triglycerides Classification is Normal. Prostate Specific Ag Screeno n 03-04-2018 Prostate Specific Ag Screen 2.25 ng/mL Normal 0.00-3.89 [facility] Comment on above: Result Comment: When the Total PSA is between 3.00 and 10.00 ng/mL, considerrequesting a Free PSA to aid in diagnosis. TSH w/out Reflexon 8 Thyroid stimulating hormone (TSH) 2.550 uIU/mL Normal 0.270-4.20 [facility] Thyroxine Freeon 03-04-2018 Thyroxine Free 1.54 ng/dL Normal 0.93-1.70 [facility] Vital Signs Date Time Vital Sign Value Performing Clinician Jimmiei litisabela 03-21-2019 15:41-0400 Respiratory rate 16 /min TITUS ONEILLY [facility] Comment on above: Performed By: #### 0 0121, 21616, 80880, 72405, 14592 #### [facility] [address] 03-21-2019 06:18-0400 Respiratory rate 16 /min TITUS ONEILLY [facility] Comment on above: Performed By: #### 0 0121, 60636, 52591, 33619, 30704 #### [facility] [address] [place] [address], [facility] 03-20-2019 15:18-0400 Respiratory rate 16 /min TITUS HOY [facility] Comment on above: Performed By: #### 0 0121, 08671, 69380, 44071, 03230 #### [facility] [address] [place] [address], [facility] 03-20-2019 06:10-0400 Respiratory rate 16 /min TITUS ONIELLY [facility] Comment on above: Performed By: #### 0 0121, 35481, 94370, 96141, 73660 #### [facility] [address] [place] [address], [facility] 03-20-2019 01:22-0400 Respiratory rate 16 /min TITUS ONEILLY [facility] Comment on above: Performed By: #### 0 0121, 52932, 09770, 96639, 06978 #### [facility] [address] [place] [address], [facility] 03-19-2019 22:02-0400 Respiratory rate 16 /min TITUS VILLEGAS [facility] Comment on above: Performed By: #### 5 7307 #### [facility] [address] [place] [address], [facility] 03-19-2019 20:06-0400 Respiratory rate 16 /min TITUS ONEILLIsabela [facility] Comment on above: Performed By: #### 8 4511, 36530 ####[facility] [place] [address], [facility] 03-19-2019 18:48-0400 Respiratory rate 16 /min TITUS VILLEGAS [facility] Comment on above: Order Comment: R/O P ulmonary Edema Performed By: #### 8 4511, 79587 ####[facility] Encounters Encounter Date Encounter Type Care Provider Facility Start: 10-23-2023 End: 10-23-2023 ambulatory [facility] Start: 04-08-2023 End: 04-08-2023 ambulatory [facility] Start: 02-11-2023 End: 02-11-2023 ambulatory [facility] Start: 02-05-2023 End: 02-06-[address] VIET SALAS Facility:[facility] Start: 12-19-2022 End: 12-20-[address] VIET SALAS Facility:[facility] Start: 11-19-2022 End: 11-19-2022 ambulatory [facility] Start: 11-09-2022 End: 11-10-[address] VIET SALAS Facility:[facility] Start: 09-14-2022 End: 09-15-2022 ambulatory KAI RUFFIN [...] abnormal findings DR TITUS VILLEGAS . [facility] Start: 04-05-2022 End: 04-06-[address] TITUS VILLEGAS . Facility:[facility] Start: 04-05-2022 End: 04-06-2022 Encounter for general adult medical examination without abnormal findings DR TITUS VILLEGAS . Facility:[facility] Start: 03-08-2022 End: 03-09-[address] MELIDA CUELLAR Facility:[facility] Start: 05-12-2019 End: 05-13-2019 Patient encounter procedure ILAN DANIELSON Facility:[facility] [[email or web address] Start: 03-14-2019 End: 03-27-2019 Evaluation and management of inpatient TITUS VILLEGAS Facility:[facility] [[email or web address]] Procedures Date Procedure Procedure Detail Performing Clinician Start: 04-05-[address] MELIDA CUELLAR Comment on above: Performed By: #### P [facility] ####[address] [address]VxGabino Beckham Start: 03-19-2019 DESTRUCTION OF CONDU CTION MECHANISM, OPEN APPROACH TIMBO MASROOR Start: 03-19-2019 EXCISION OF MITRAL V ALVE, [...] on above: Performed By: #### 0 0121, 08944, 01088, 55434, 04478 #### [facility] [address] Start: 03-16-2019 MEASURE CARDIAC SAMP L \T\ PRESSURE, BILATERAL, PERC KRYS DAY Start: 03-16-2019 FLUOROSCOPY OF LEFT HEART USING OTHER CONTRAST KRYS DAY Start: 03-16-2019 FLUOROSCOPY OF MULTI PLE CORONARY ARTERIES USING OTH CONTRAST KRYS DAY Start: 03-16-2019 [employer] of Cardi ac Rhythm, Single ILAN DANIELSON Payers Date Payer Category Payer Unknown [id number] 2.16.8 [id number] 1965 Unknown [id number] 2.16.8 [id number] 1965 Unknown [id number] 2.16.84 0.1.383853.3.579.2.593 1965 Unknown [id number] 2.16.84 0.1.433945.3.579.2.593 1965 Unknown [id number] 2.16.84 0.1.411942.3.579.2.593 1965 Unknown [id number] 2.16.84 0.1.813688.3.579.2.593 1965 Unknown [id number] 2.16.84 0.1.551000.3.579.2.593 1965 Unknown [id number] 2.16.84 0.1.008117.3.579.2.593 1965 Unknown [id number] 2.16.84 0.1.254171.3.579.2.593 1965 Unknown [id number] 2.16.84 0.1.819385.3.579.2.593 1965 Unknown [id number] 2.16.84 0.1.265961.3.579.2.593 1965 Unknown [id number] 2.16.84 0.1.329431.3.579.2.593 1965 Unknown [id number] 2.16.84 0.1.827334.3.579.2.593 1965 Unknown [id number] 2.16.84 0.1.419900.3.579.2.593 1965 Unknown [id number] 2.16.84 0.1.944006.3.579.2.593 1965 Unknown [id number] 2.16.84 0.1.229106.3.579.2.593 1965 Unknown [id number] 2.16.84 0.1.000250.3.579.2.593 1965 Unknown [id number] 2.16.84 0.1.384356.3.579.2.593 1960 Self-pay 1960 Unknown [id number] Progress note 10-23-2023 Note Date & Type Note Facility 10-23-2023 Note [facility] Subjective Tracie Crain is a 58 y.o. year old male patient being seen for 6 mo follow up chronic systolic heart failure, PAF, ASD, and mitral valve disorder. Had echo last week and routine labs in Jul 2023. Denies chest pain, palpitations, and lightheadedness. Says his SCHILLING and LE edema are about the same as they were at last apt in March 2023. 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 rate has increased [...] arteries. 2. Elevated filling pressures consistent with deco (more content not included)... [facility] Progress note 04-08-2023 Note Date & Type Note Facility 04-08-2023 Note [place] [facility] Subjective Tracie Crain is [...] When compared with ECG of 21-MAR-2019 20:42, [place] interval has decreased, Vent. rate has increased [...] has been o (more content not included)... [facility] Progress note 02-11-2023 Note Date & Type Note Facility 02-11-2023 Note [facility] Subjective Tracie Crain is [...] When compared with ECG of 21-MAR-2019 20:42, [place] interval has decreased, Vent. rate has increased [...] sinus rhythm a (more content not included)... [facility] Progress note 11-19-2022 Note Date & Type Note Facility 11-19-2022 Note [facility] Subjective Tracie Crain is a 57 y.o. year old male patient being seen for follow up echo per Mily Marks CNP. Patient Active Problem List Diagnosis Right-sided [...] When compared with ECG of 21-MAR-2019 20:42, [place] interval has decreased, Vent. rate has increased [...] no lightheadedness. His (more content not included)... [facility] Clinical Note 11-29-2020 Note Date & [...] vaccine, inactivated - Not Given Patient Refuses [facility] Comment on above: Result Comment: Elec tronically Signed By: BONG ADKINS, Tracie Sarah\Date and Time Signed: 11/29/20 14:05 EST Summary Purpose Family History No Family History Records FoundNo Family History Records FoundNo Family History Records FoundNo Family History Records FoundNo Family History Records Found Advance Directives No Advanced Directives Records FoundNo Advanced Directives Records FoundNo Advanced Directives Records FoundNo Advanced Directives Records FoundNo Advanced Directives Records Found Hospital Course Note MR#: [id number] [facility] Pt. Name: Tracie Crain Admitted: 03/14/2019 Discharged: 03/27/2019 Date of : 1965 Physician: Timbo Black MD DISCHARGE SUMMARY HISTORY: This is a 53-year-old male who was transferred from [facility] for further management of new-onset atrial fibrillation and systolic heart failure. Over the past 2 weeks, he had been having symptoms of lower extremity swelling. He denied chest pain and was very short of breath according to the . At [facility], he was noted to have severe pulmonary venous congestion and was transferred to [facility] [[email or web address]] after echocardiogram revealed reduced left ventricular systolic [...] section and content) DATE CREATED AUTHOR 03/18/2018 [facility] DATE CREATED AUTHOR AUTHOR'S ORGANIZ ATION 03/02/2020 [facility] DATE CREATED AUTHOR AUTHOR'S ORGANIZ ATION 02/12/2021 [facility] DATE CREATED AUTHOR AUTHOR'S ORGANIZ ATION 02/10/2023 [facility] DATE CREATED AUTHOR AUTHOR'S ORGANIZ ATION 10/24/2023 [facility] FOR RECORDS PERTAINING TO PATIENTS WHO [...] BE BASED ON THE PRIMARY CLINICAL RECORDS. [facility] [employer] [facility]. provides no warranty or guarantee of the accuracy or completeness of information in this document.
[2023-11-11 14:06] LABS: BUN Creatinine Ratio 16.3; Calcium 8.9 mg/dL (8.5-10.1); Chloride 102 mmol/L (98-107); Estimated GFR (African America >60 (>=60); Estimated GFR (Non-African Ame 57 (>=60); Glucose 116 mg/dL (74-106); Sodium 141 mmol/L (136-145)
== END 2023-11-11 13:37 | disposition home or self-care (01) ==
LOC: LAB 13:37
PROVIDERS: PCP Family Medicine; Visit Provider Internal Medicine Interventional Cardiology
DX: I50.22 Chronic systolic (congestive) heart failure (principal)
CPT/HCPCS: 36415; 80048

== ENCOUNTER 2024-01-23 07:25 | Outpatient (OUT) | payer BC, SELFPAY ==
--- OUTSIDE RECORDS SUMMARY | 2024-01-23 07:27 | XMS_ITS | CCD ---
Author Organization [facility] Care Team Providers Care Railroad Car Letterer Name Role Phone TITUS VILLEGAS Referring Unavailable SELF, REFERRED Primary Care Unavailable ANABELL TIMBO Attending Unavailable JIAN SYED Admitting Unavailable CO Procedure Practitioner Unavailab KRYS De La Torre Surgeon Unavailable CO Procedure Practitioner Unavailab le ILAN CABA Surgeon Unavailable CO Procedure Practitioner Unavailab rishabh BLACK, TIMBO Surgeon Unavailable CO Procedure Practitioner Unavailab MAY De La Rosa Surgeon Unavailable SHIKHA BURCIAGAMILisa, MOSHRIK Attending Unavailable SHIKHA BURCIAGAMILisa, MOSHRIK Admitting Unavailable ANABELL, TIMBO Referring Unavailable TITUS VILLEGAS Primary Care Unavailable EDGAR, DR MELIDA Owen Consulting Unavailable NELLY Lloyd, DR QURESHI Primary Care Unavailable EDGAR, DR MELIDA Owen Attending Unavailable WEST, DR MELIDA Owen Admitting Unavailable ZIRISSA, DR LYNDA Gonzalez Consulting Unavailable WEST, DR MELIDA Owen Consulting Unavailable NELLY ., DR QURESHI Primary Care Unavailable WEST, DR MELIDA Owen Attending Unavailable WEST, DR MELIDA Owen Admkwaku Unavailable EDGAR, DR MELIDA Owen Consulting Unavailable NELLY ., DR QURESHI Primary Care Unavailable WEST, DR MELIDA Owen Attending Unavailable EDGRA, DR MELIDA Owen Admitting Unavailable EDGAR, DR MELIDA Owen Consulting Unavailable NELLY ., DR QURESHI Primary Care Unavailable WEST, DR MELIDA Owen Attending Unavailable WEST, DR MELIDA Owen Admitting Unavailable REGINLADO, DR LYNDA Gonzalez Consulting Unavailable EDGAR, DR MELIDA Owen Consulting Unavailable NELLY ., DR QURESHI Primary Care Unavailable EDGAR, DR MELIDA Owen Attending Unavailable EDGAR, DR MELIDA Owen Admitting Unavailable REGINALDO, DR LYNDA Gonzalez Consulting Unavailable EDGAR, DR MELIDA Owen Consulting Unavailable NELLY ., DR QURESHI Primary Care Unavailable EDGAR, DR MELIDA Owen Attending Unavailable EDGAR, DR MELIDA Owen Admitting Unavailable KAI RUFFIN Consulting Unavailable NELLY Lloyd, DR QURESHI Primary Care Unavailable KAI RUFFIN Attending Unavailable KAI RUFFIN Admitting Unavailable MOUKARBEL, DR LLANOS Consulting Unavailable [...] [facility] Facility Office Visiton 10-23-2023 Follow-up visit [id number] Tracie Crain 1965 M Date Provider Department Center 10/23/2023 VIET MARIA Family History Problem Relation Age of Onset Atrial fibrillation Mother Alzheimer's disease Mother Family Status - Relation Status Age at Mother Level of Service:56737 CO OFFICE/OUTPATIENT ESTABLISHED MOD MDM 30 MIN Normal [facility] Office Visiton 04-08-2023 Follow-up visit [id number] Tracie Crain 1965 M Date Provider Department Center 04/08/2023 VIET MARIA Family History Problem Relation Age of Onset Atrial fibrillation Mother Alzheimer's disease Mother Family Status - Relation Status Age at Mother Level of Service:89297 CO OFFICE/OUTPATIENT ESTABLISHED MOD MDM 30-39 MIN Normal [facility] Office Visiton 02-11-2023 Follow-up visit [id number] Tracie Crain 1965 M Date Provider Department Center 02/11/2023 VIET MARIA CARD Ricky [facility] Family History Problem Relation Age of Onset Atrial fibrillation Mother Alzheimer's disease Mother Family Status - Relation Status Age at Mother Level of Service:39261 CO OFFICE/OUTPATIENT ESTABLISHED MOD MDM 30-39 MIN Normal [facility] ECHOCARDIO M/2D COMPLETEon 0 02-05-2023 ECHOCARDIO M/2D COMPLETE Patient: TRCAIE CRAIN. Exam Date: 02/05/2023 : 1965 Gender:M Ordering : DR VIET SALAS M.D. Admission #: [id number] Family : Order #: [id number] CLICK HERE TO VIEW EXAM ECHOCARDIOGRAM REPORT [...] Jenkins M.D. on 02/05/2023 at 16:[address] [facility] BNPon 12-19-2022 Natriuretic peptide B (Bld) [Mass/Vol] 859.0 pg/mL Normal <=900.[address] [facility] Comment on above: Performed By: #### B MP, BNP #### [facility] [address] [place] [address] Dr. Leonie Beckham PROF CHEM 8 (BAS METB)on Anion gap [Moles/Vol] 9.9 mmol/L Normal [facility] Comment on above: Performed By: #### B MP, BNP #### [facility] [address] [place] [address] Dr. Leonie Beckham Calcium [Mass/Vol] 9.4 mg/dL Normal 8.5-10.1 [facility] Comment on above: Performed By: #### B MP, BNP #### [facility] [address] [place] [address] Dr. Leonie Beckham Chloride [Moles/Vol] 102 mmol/L Normal 98-[address] [facility] Comment on above: Performed By: #### B MP, BNP #### [facility] [address] [place] [address] Dr. Leonie Beckham CO2 [Moles/Vol] 32.0 mmol/L Normal 21.0-32.0 [facility] Comment on above: Performed By: #### B MP, BNP #### [facility] [address] [address] [address] Leonie Beckham Creatinine [Mass/Vol] 1.17 mg/dL Normal 0.70-1.[address] [facility] Comment on above: Performed By: #### B MP, BNP #### [facility] [address] [address] [address] Leonie Beckham EGFR-AF KENYAN >60 Normal >=60 [facility] Comment on above: Performed By: #### B MP, BNP #### [facility] [address] [address] [address] Leonie Beckham EGFR-NON AF KENYAN >60 Normal >=[address] [facility] Comment on above: Performed By: #### B MP, BNP #### [facility] [address] [address] [address] Leonie Beckham Glucose [Mass/Vol] 106 mg/dL Normal 74-106 [facility] Comment on above: Performed By: #### B MP, BNP #### [facility] [address] [address] [address] Leonie Beckham Potassium [Moles/Vol] 3.9 mmol/L Normal 3.5-5.[address] [facility] Comment on above: Performed By: #### B MP, BNP #### [facility] [address] [address] [address] Leonie Beckham Sodium [Moles/Vol] 140 mmol/L Normal 136-145 [facility] Comment on above: Performed By: #### B MP, BNP #### [facility] [address] [address] [address] Leonie Beckham Urea nitrogen [Mass/Vol] 25.0 mg/dL Critically high 7.0-18.[address] [facility] Comment on above: Performed By: #### B MP, BNP #### [facility] [address] [address] [address] Leonie Beckham Urea nitrogen/Creatinine [Mass ratio] 21.4 mg/mg Normal [facility] Comment on above: Performed By: #### B MP, BNP #### [facility] [address] [address] [address] Leonie Beckham Office Visiton 11-19-2022 Follow-up visit [id number] Tracie Crain 1965 M Date Provider Department Center 11/19/2022 VIET MARIA [facility] Family History Problem Relation Age of Onset Atrial fibrillation Mother Alzheimer's disease Mother Family Status - Relation Status Age at Mother Level of Service:84622 CO OFFICE/OUTPATIENT ESTABLISHED MOD MDM 30-39 MIN Reason for Visit and Comments: Congestive Heart Failure [127] Valve Disorder [3372] Normal [facility] ECHOCARDIO M/2D COMPLETEon 0 11-09-2022 ECHOCARDIO M/2D COMPLETE Patient: TRACIE CRAIN Exam Date: 11/09/2022 : 1965 Gender:M Ordering : DR VIET SALAS M.D. Admission #: [id number] Family : DR TITUS VILLEGAS . Order #: [id number] CLICK HERE TO VIEW EXAM ECHOCARDIOGRAM REPORT [...] Viet Salas M.D. on 11/09/2022 at 16:31 [facility] CHEM 8 (BAS METB)on Anion gap [Moles/Vol] 8.0 mmol/L Normal [facility] Comment on above: Performed By: #### B MP #### [facility] [address] [address] [address] Leonie Beckham Calcium [Mass/Vol] 8.6 mg/dL Normal 8.5-10.1 [facility] Comment on above: Performed By: #### B MP #### [facility] [address] [address] [address] Leonie Beckham Chloride [Moles/Vol] 102 mmol/L Normal 98-107 [facility] Comment on above: Performed By: #### B MP #### [facility] [address] [place] [address] Dr. Leonie Beckham CO2 [Moles/Vol] 31.5 mmol/L Normal 21.0-32.0 [facility] Comment on above: Performed By: #### B MP #### [facility] [address] [address] [address] Leonie Beckham Creatinine [Mass/Vol] 1.13 mg/dL Normal 0.70-1.30 [facility] Comment on above: Performed By: #### B MP #### [facility] [address] [place] [address] Dr. Leonie Beckham EGFR-AF KENYAN >60 Normal >=60 [facility] Comment on above: Performed By: #### B MP #### [facility] [address] [address] [address] Leonie Beckham EGFR-NON AF KENYAN >60 Normal >=60 [facility] Comment on above: Performed By: #### B MP #### [facility] [address] [address] [address] Leonie Beckham Glucose [Mass/Vol] 100 mg/dL Normal 74-106 [facility] Comment on above: Performed By: #### B MP #### [facility] [address] [address] [address] Leonie Beckham Potassium [Moles/Vol] 3.5 mmol/L Normal 3.5-5.[address] [facility] Comment on above: Performed By: #### B MP #### [facility] [address] [address] [address] Leonie Beckham Sodium [Moles/Vol] 138 mmol/L Normal 136-145 [facility] Comment on above: Performed By: #### B MP #### [facility] [address] [address] [address] Leonie Beckham Urea nitrogen [Mass/Vol] 24.0 mg/dL Critically high 7.0-18.[address] [facility] Comment on above: Performed By: #### B MP #### [facility] [address] [place] [address] Dr. Leonie Beckham Urea nitrogen/Creatinine [Mass ratio] 21.2 mg/mg Normal [facility] Comment on above: Performed By: #### B MP #### [facility] [address] [place] [address] Dr. Leonie Beckham ECHOCARDIO M/2D COMPLETEon 0 06-27-2022 ECHOCARDIO M/2D COMPLETE Patient: TRACIE CRAIN Exam Date: 06/27/2022 : 1965 Gender:M Ordering : KAI RUFFIN [facility] Admission #: [id number] Family : DR TITUS VILLEGAS . Order #: [id number] CLICK HERE TO VIEW EXAM ECHOCARDIOGRAM REPORT [...] Salas M.D. on 06/27/2022 at 18:[address] [facility] VC CONSULT FOLLOWUPon 2021 VC CONSULT FOLLOWUP Patient: TRACIE CRAIN Exam Date: 06/13/2022 : 1965 Gender:M Ordering : DR MELIDA CUELLAR M.D. Admission #: [id number] Family : Order #: [id number] CLICK HERE TO VIEW EXAM RADIOLOGY REPORT [...] Cuellar MD on 06/13/2022 at 14:59 Normal [facility] VC EXT VENOUS RT LIMITEDon 0 06-13-2022 VC EXT VENOUS RT LIMITED Patient: TRACIE CRAIN. Exam Date: 06/13/2022 : 1965 Gender:M Ordering : DR MELIDA CUELLAR M.D. Admission #: [id number] Family : Order #: [id number] CLICK HERE TO VIEW EXAM RADIOLOGY REPORT [...] veins in the medial right leg. Associated learning and development administrator distal medial also thrombosed 3.1 mm from [...] Cuellar MD on 06/13/2022 at 15:[address] [facility] VC INJ FOAM SCLERO W US MLTI on 06-07-2022 VC INJ FOAM SCLERO W US MLTI Patient: TRACIE CRAIN Exam Date: 06/07/2022 : 1965 Gender:M Ordering : DR MELIDA CUELLAR M.D. Admission #: [id number] Family : Order #: [id number] CLICK HERE TO VIEW EXAM RADIOLOGY REPORT [...] for (more content not included)... Normal [facility] VC CONSULT FOLLOWUPon 2021 VC CONSULT FOLLOWUP Patient: TRACIE CRAIN Exam Date: 06/01/2022 : 1965 Gender:M Ordering : DR MELIDA CUELLAR M.D. Admission #: [id number] Family : Order #: [id number] CLICK HERE TO VIEW EXAM RADIOLOGY REPORT [...] Cuellar MD on 06/01/2022 at 09:[address] [facility] VC EXT VENOUS LT LIMITEDon 0 06-01-2022 VC EXT VENOUS LT LIMITED Patient: TRACIE CRAIN Exam Date: 06/01/2022 : 1965 Gender:M Ordering : DR MELIDA CUELLAR M.D. Admission #: [id number] Family : Order #: [id number] CLICK HERE TO VIEW EXAM RADIOLOGY REPORT [...] Cuellar MD on 06/01/2022 at 09:[address] [facility] VC INJ FOAM SCLERO W US MLTI on 05-25-2022 VC INJ FOAM SCLERO W US MLTI Patient: TRACIE CRAIN Exam Date: 05/25/2022 : 1965 Gender:M Ordering : DR MELIDA CUELLAR M.D. Admission #: [id number] Family : Order #: [id number] CLICK HERE TO VIEW EXAM RADIOLOGY REPORT [...] Aguilar M.D. on 05/25/2022 at 11:[address] [facility] VC CONSULT FOLLOWUPon 2021 VC CONSULT FOLLOWUP Patient: TRACIE CRAIN Exam Date: 05/14/2022 : 1965 Gender:M Ordering : DR MELIDA CUELLAR M.D. Admission #: [id number] Family : Order #: [id number] CLICK HERE TO VIEW EXAM RADIOLOGY REPORT [...] Aguilar M.D. on 05/14/2022 at 09:[address] [facility] VC EXT VENOUS RT LIMITEDon 0 05-14-2022 VC EXT VENOUS RT LIMITED Patient: TRACIE CRAIN. Exam Date: 05/14/2022 : 1965 Gender:M Ordering : DR MELIDA UCELLAR M.D. Admission #: [id number] Family : Order #: [id number] CLICK HERE TO VIEW EXAM RADIOLOGY REPORT [...] Aguilar M.D. on 05/14/2022 at 09:[address] [facility] VC ENDOVENOUS ABL PERFORATIN G RTon 05-10-2022 VC ENDOVENOUS ABL PERFORATING RT Patient: TRACIE CRAIN Exam Date: 05/10/2022 : 1965 Gender:M Ordering : DR MELIDA CUELLAR M.D. Admission #: [id number] Family : Order #: [id number] CLICK HERE TO VIEW EXAM RADIOLOGY REPORT PROCEDURE: [facility] ENDOVENOUS ABLATION FOR VEIN RIGHT GREAT SAPHENOUS VEIN COMPARISON: None. INDICATIONS: Pain co-occurrent and due to varicose veins of bilateral legs I83.813 OPERATIVE REPORT: Diagnosis: Superficial venous reflux, incompetent perforating veins Procedure: Endovenous laser ablation of the left learning and development administrator(s) Procedure: The patient was positioned supine on [...] Cuellar MD on 05/10/2022 at 10:[address] [facility] VC CONSULT FOLLOWUPon 2021 VC CONSULT FOLLOWUP Patient: TRACIE CRAIN Exam Date: 05/04/2022 : 1965 Gender:M Ordering : DR MELIDA CUELLAR M.D. Admission #: [id number] Family : Order #: [id number] CLICK HERE TO VIEW EXAM RADIOLOGY REPORT [...] Aguilar M.D. on 05/04/2022 at 08:[address] [facility] VC EXT VENOUS LT LIMITEDon 0 05-04-2022 VC EXT VENOUS LT LIMITED Patient: TRACIE CRAIN. Exam Date: 05/04/2022 : 1965 Gender:M Ordering : DR MELIDA CUELLAR M.D. Admission #: [id number] Family : Order #: [id number] CLICK HERE TO VIEW EXAM RADIOLOGY REPORT [...] Aguilar M.D. on 05/04/2022 at 08:[address] [facility] VC ENDOVENOUS ABL 1ST V LTon 04-27-2022 VC ENDOVENOUS ABL 1ST V LT Patient: TRACIE CRAIN Exam Date: 04/27/2022 : 1965 Gender:M Ordering : DR MELIDA CUELLAR M.D. Admission #: [id number] Family : Order #: [id number] CLICK HERE TO VIEW EXAM RADIOLOGY REPORT [...] M.D. on 04/27/2022 at 10:32 Normal [facility] CBC AUTO DIFFon 04-05-2022 BASO # 0.1 103/ul Normal 0.0-0.1 [facility] Comment on above: Performed By: #### C BC ####[facility] [address] [address]Dr. Kaleighjacob Beckham Basophils/100 WBC (Bld) 1.2 % Normal 0.2-2.0 [facility] Comment on above: Performed By: #### C BC ####[facility] [address] [address]Dr. Leonie Beckham EO # 0.3 103/ul Normal 0.0-0.7 [facility] Comment on above: Performed By: #### C BC ####[facility] [address] [address]Dr. Leonie Beckham Eosinophils/100 WBC (Bld) 3.9 % Normal 0.9-7.0 [facility] Comment on above: Performed By: #### C BC ####[facility] [address] [address]Dr. Kaleighjacob Beckham Erythrocyte distribution width (RBC) [Ratio] 13.2 % Normal 11.0-15.0 [facility] Comment on above: Performed By: #### C BC ####[facility] [address] [address]Dr. Leonie Beckham Hematocrit (Bld) [Volume fraction] 43.5 % Normal 42.0-54.[address] [facility] Comment on above: Performed By: #### C BC ####[facility] [address] [address]Dr. Leonie Beckham Hemoglobin (Bld) [Mass/Vol] 13.9 g/dL Critically low 14.0-18.[address] [facility] Comment on above: Performed By: #### C BC ####[facility] [address] [place], [place] [address]Dr. Leonie Beckham IG # 0.03 10e3/ul Normal 0.00-0.[address] [facility] Comment on above: Performed By: #### C BC ####[facility] [address] [place], [place] [address]Dr. Leonie Beckham IG % 0.4 % Normal 0.0-0.[address] [facility] Comment on above: Performed By: #### C BC ####[facility] [address] [place], [place] [address]Dr. Leonie Beckham LYMPH # 2.0 103/ul Normal 1.2-3.8 [facility] Comment on above: Performed By: #### C BC ####[facility] [address] [place], [place] [address]DrGabino Beckham Lymphocytes/100 WBC (Bld) 25.0 % Normal 20.5-60.0 [facility] Comment on above: Performed By: #### C BC ####[facility] [address] [place], [place] [address]Dr. Leonie Beckham MANUAL DIFF REQ NO Normal [facility] Comment on above: Performed By: #### C BC ####[facility] [address] [place], [place] [address]DrGabino Beckham MCH (RBC) [Entitic mass] 30.2 pg Normal 25.9-34.[address] [facility] Comment on above: Performed By: #### C BC ####[facility] [address] [id number]. Leonie Chapincito MCHC (RBC) [Mass/Vol] 32.0 g/dL Normal 29.9-35.2 [facility] Comment on above: Performed By: #### C BC ####[facility] [address] [id number]. Leonie Beckham MCV (RBC) [Entitic vol] 94.4 fL Critically high 80.0-94.0 [facility] Comment on above: Performed By: #### C BC ####[facility] [address] [id number]. Leonie Beckham MONO # 1.0 103/ul Critically high 0.3-0.8 [facility] Comment on above: Performed By: #### C BC ####[facility] [address] [place], [place] [address]Dr. Leonie Beckham Monocytes/100 WBC (Bld) 12.0 % Normal 1.7-12.0 [facility] Comment on above: Performed By: #### C BC ####[facility] [address] [place], [place] [address]Dr. Leonie Beckham NEUT # 4.6 103/ul Normal 1.4-6.[address] [facility] Comment on above: Performed By: #### C BC ####[facility] [address] [place], [place] [address]Dr. Leonie Beckahm Neutrophils/100 WBC (Bld) 57.5 % Normal 43.0-75.0 [facility] Comment on above: Performed By: #### C BC ####[facility] [address] [place], [place] [address]Dr. Leonie Beckham Platelet mean volume (Bld) [Entitic vol] 9.4 fL Critically low 9.5-13.5 [facility] Comment on above: Performed By: #### C BC ####[facility] [address] [place], [place] [address]Dr. Leonie Beckham PLT 203 103/ul Normal 150-450 [facility] Comment on above: Performed By: #### C BC ####[facility] [address] [id number]. Leonie Beckham RBC 4.61 106/ul Critically low 4.70-6.10 [facility] Comment on above: Performed By: #### C BC ####[facility] [address] [id number]. Leonie Beckham WBC 8.0 103/ul Normal 4.0-11.[address] [facility] Comment on above: Performed By: #### C BC ####[facility] [address] [id number]. Leonie Beckham FREE T3on 04-05-2022 FREE T3 2.54 pg/mlL Normal 2.18-3.[address] [facility] Comment on above: Performed By: #### T SH, LIPID, CMP, T4, FT3 ####[facility] [address] [address]Dr. Leonie Beckham GLYCOHEMOGLOBIN A1Con 2021 ADA RECOMMENDATION SEE BELOW Normal [facility] Comment on above: Result Comment: ADA RECOMMENDED LIMIT 4.0 - 6.0 ADA THERAPEUTIC TARGET < 7.0 ACTION SUGGESTED > 7.0 Performed By: #### A 1C ####[facility] [address] [address]Dr. Leonie Beckham Glucose [Mass/Vol] 126 mg/dL Normal [facility] Comment on above: Performed By: #### A 1C ####[facility] [address] [address]Dr. Leonie Beckham HbA1c (Bld) [Mass fraction] 6.0 % Normal 4.5-6.[address] [facility] Comment on above: Performed By: #### A 1C ####[facility] [address] [place], [place] [address]Dr. Leonie Beckham LIPID PROFILEon 04-05-2022 CHOL-HDL RATIO NORM SEE BELOW Normal [facility] Comment on above: Result Comment: 3.3 - 4.4 LOW RISK 4.4 - 7.1 AVERAGE RISK 7.1 - 11.0 MODERATE RISK >11.0 HIGH RISK Performed By: #### T SH, LIPID, CMP, T4, FT3 ####[facility] [address] [address]Dr. Leonie Beckham Cholesterol [Mass/Vol] 137 mg/dL Normal <=200 [facility] Comment on above: Performed By: #### T SH, LIPID, CMP, T4, FT3 ####[facility] [address] [address]Dr. Leonie Beckham Cholesterol in HDL [Mass/Vol] 40 mg/dL Normal 40-60 [facility] Comment on above: Performed By: #### T SH, LIPID, CMP, T4, FT3 ####[facility] [address] [address]Dr. Leonie Beckham Cholesterol in LDL [Mass/Vol] 84.0 mg/dL Normal [facility] Comment on above: Performed By: #### T SH, LIPID, CMP, T4, FT3 ####[facility] [address] [place], [place] [address]Dr. Leonie Beckham Cholesterol.total/Ch olesterol in HDL [Mass ratio] 3.4 {ratio} Normal [facility] Comment on above: Performed By: #### T SH, LIPID, CMP, T4, FT3 ####[facility] [address] [address]Dr. Leonie Beckham HDL NORMAL > or = 60 mg/dl - LO W CARDIOVASCULAR RISK <40 mg/dl - HIGH CARDIOVASCULAR RISK Normal [facility] Comment on above: Performed By: #### T SH, LIPID, CMP, T4, FT3 ####[facility] [address] [address]Dr. Leonie Beckham LDL CALC NORMAL SEE BELOW Normal [facility] Comment on above: Result Comment: <100 mg/dl OPTIMAL 100 - 129 mg/dl NEAR OR ABOVE OPTIMAL 130 - 159 mg/dl BORDERLINE HIGH 160 - 189 mg/dl HIGH >190 mg/dl VERY HIGH Performed By: #### T SH, LIPID, CMP, T4, FT3 ####[facility] [address] [place], [place] [address]Dr. Leonie Beckham Triglyceride [Mass/Vol] 65 mg/dL Normal <=[address] [facility] Comment on above: Performed By: #### T SH, LIPID, CMP, T4, FT3 ####[facility] [address] [address]Dr. Leonie Beckham VLDL CALC 13.0 mg/dL Normal [facility] Comment on above: Performed By: #### T SH, LIPID, CMP, T4, FT3 ####[facility] [address] [address]Dr. Leonie Beckham PROF 14(COMP METB)on 022 Albumin [Mass/Vol] 3.8 g/dL Normal 3.4-5.0 [facility] Comment on above: Performed By: #### T SH, LIPID, CMP, T4, FT3 ####[facility] [address] [address]Dr. Leonie Beckham Albumin/Globulin [Mass ratio] 1.2 {ratio} Normal [facility] Comment on above: Performed By: #### T SH, LIPID, CMP, T4, FT3 ####[facility] [address] [address]Dr. Leonie Beckham ALP [Catalytic activity/Vol] 81 U/L Normal 46-[address] [facility] Comment on above: Performed By: #### T SH, LIPID, CMP, T4, FT3 ####[facility] [address] [address]Dr. Leonie Beckham ALT [Catalytic activity/Vol] 35 U/L Normal 16-[address] [facility] Comment on above: Performed By: #### T SH, LIPID, CMP, T4, FT3 ####[facility] [address] [address]Dr. Leonie Beckham Anion gap [Moles/Vol] 10.8 mmol/L Normal [facility] Comment on above: Performed By: #### T SH, LIPID, CMP, T4, FT3 ####[facility] [address] [address]Dr. Leonie Beckham AST [Catalytic activity/Vol] 22 U/L Normal 15-37 [facility] Comment on above: Performed By: #### T SH, LIPID, CMP, T4, FT3 ####[facility] [address] [address]Dr. Leonie Beckham Bilirubin [Mass/Vol] 1.1 mg/dL Critically high 0.2-1.[address] [facility] Comment on above: Performed By: #### T SH, LIPID, CMP, T4, FT3 ####[facility] [address] [address]Dr. Leonie Beckham Calcium [Mass/Vol] 8.6 mg/dL Normal 8.5-10.1 [facility] [place] Comment on above: Performed By: #### T SH, LIPID, CMP, T4, FT3 ####[facility] [address] [place] [address]Dr. Leonie Beckham Chloride [Moles/Vol] 105 mmol/L Normal 98-107 [facility] Comment on above: Performed By: #### T SH, LIPID, CMP, T4, FT3 ####[facility] [address] [place] [address]Dr. Leonie Beckham CO2 [Moles/Vol] 28.2 mmol/L Normal 21.0-32.0 [facility] Comment on above: Performed By: #### T SH, LIPID, CMP, T4, FT3 ####[facility] [address] [place] [address]Dr. Leonie Beckham Creatinine [Mass/Vol] 1.33 mg/dL Critically high 0.70-1.30 [facility] Comment on above: Performed By: #### T SH, LIPID, CMP, T4, FT3 ####[facility] [address] [place] [address]Dr. Leonie Beckham EGFR-AF KENYAN >60 Normal >=60 [facility] Comment on above: Performed By: #### T SH, LIPID, CMP, T4, FT3 ####[facility] [address] [place] [address]Dr. Leonie Beckham EGFR-NON AF KENYAN 55 mL/min/1.73m2 Critically low >=60 [facility] Comment on above: Performed By: #### T SH, LIPID, CMP, T4, FT3 ####[facility] [address] [place] [address]Dr. Leonie Beckham Globulin (S) [Mass/Vol] 3.3 g/dL Normal [facility] Comment on above: Performed By: #### T SH, LIPID, CMP, T4, FT3 ####[facility] [address] [place] [address]Dr. Leonie Beckham Glucose [Mass/Vol] 94 mg/dL Normal 74-106 [facility] Comment on above: Performed By: #### T SH, LIPID, CMP, T4, FT3 ####[facility] [address] [place], [place] [address]Dr. Leonie Beckham Potassium [Moles/Vol] 4.0 mmol/L Normal 3.5-5.1 [facility] Comment on above: Performed By: #### T SH, LIPID, CMP, T4, FT3 ####[facility] [address] [place], [place] [address]Dr. Kaleighlan Beckham Protein [Mass/Vol] 7.1 g/dL Normal 6.4-8.2 [facility] Comment on above: Performed By: #### T SH, LIPID, CMP, T4, FT3 ####[facility] [address] [place] [address]Dr. Kaleighlan Beckham Sodium [Moles/Vol] 140 mmol/L Normal 136-145 [facility] Comment on above: Performed By: #### T SH, LIPID, CMP, T4, FT3 ####[facility] [address] [place] [address]Dr. Kaleighlan Beckham Urea nitrogen [Mass/Vol] 24.0 mg/dL Critically high 7.0-18.0 [facility] Comment on above: Performed By: #### T SH, LIPID, CMP, T4, FT3 ####[facility] [address] [place] [address]Dr. Leonie Beckham Urea nitrogen/Creatinine [Mass ratio] 18.0 mg/mg Normal [facility] Comment on above: Performed By: #### T SH, LIPID, CMP, T4, FT3 ####[facility] [address] [place], [place] [address]Ht. Leonie Beckham T4on 04-05-2022 T4 [Mass/Vol] 7.70 ug/dL Normal 4.50-12.10 [facility] Comment on above: Performed By: #### T SH, LIPID, CMP, T4, FT3 ####[facility] [address] [place], [place] [address]Pe. Leonie Beckham TSHon 04-05-2022 TSH 3.042 uIU/mL Normal 0.358-3.740 [facility] Comment on above: Performed By: #### T SH, LIPID, CMP, T4, FT3 ####[facility] [address] [place], [place] [address]Hh. Leonie Beckham VC COMP CONSULTATIONon 03-08 VC COMP CONSULTATION Patient: TRACIE CRAIN Exam Date: 03/08/2022 : 1965 Gender:M Ordering : DR TITUS VILLEGAS . 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 The [...] 03/08/2022 a (more content not included)... Normal [facility] Ambulatory Clinical Summaryo n 12-20-2020 Ambulatory Clinical Summary {[id number]}CD:[id number] Normal [facility] Coding Summary.on 12-20-2020 Coding Summary. CODING DATE: 12/19/2020 FINAL [facility] STATUS: Home (Routine DC) PAYOR: [...] CphT Date Saved: 12/19/2020 11:58 pm Normal [facility] General Surgery Office/Clini c Noteon 12-20-2020 General [...] With When Contact Information BONG ADKINS, Tracie Gonzalez Only if needed [address] [place] [address]- Additional Instructions: Problem List/Past Medical [...] inactivated - Not Given Patient Refuses Normal [facility] Comment on above: Result Comment: Elec tronically Signed By: BONG ADKINS, Tracie Torrez.br\Date and Time Signed: 12/20/20 15:58 EDT Ambulatory Clinical Summaryo n 12-09-2020 Ambulatory Clinical Summary {[id number]}CD:[id number] Normal [facility] General Surgery Office/Clini c Noteon 12-09-2020 General [...] inactivated - Not Given Patient Refuses Normal [facility] Comment on above: Result Comment: Elec tronically Signed By: BONG ADKINS, Tracie R\.br\Date and Time Signed: 12/09/20 09:30 EST Provider Letter FTon 11-30 Provider Letter [facility] Titus Villegas, [facility] [place] [address] Re: TRACIE CRAIN Date of : 1965 Thank you for your referral of Tracie Crain who was seen on consultation on November 29, 2020, for growth on left lower back that is changing. An excisional biopsy is planned. I have enclosed my consultation notes for your review. I will be happy to follow Tracie. Sincerely, Tracie Tate MD General Surgery Normal [facility] Ambulatory Clinical Summaryo n 11-29-2020 Ambulatory Clinical Summary {[id number]}CD:[id number] Normal [facility] Physician Referralon 021 Physician Referral [id number] 0CD:127 Normal [facility] Operative Reporton 9 Operative Report MR#: [id number] S [facility] Pt. Name: Tracie Crain Room #: CC [...] form. 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 [address] [id number] Timbo Black MD [address] [facility] [address] Normal [facility] BASIC METABOLIC PANELon 07-0 Calcium [Mass/Vol] 9.4 mg/dL Normal 8.6-10.3 [facility] Comment on above: Performed By: #### 0 0121, 02159, 20509, 53639, 36589 #### [facility] [address] [place] [address], [place] Chloride [Moles/Vol] 99 mmol/L Normal 98-107 [facility] Comment on above: Performed By: #### 0 0121, 54868, 40570, 39355, 95899 #### [facility] [address] [place] [address], [place] CO2 [Moles/Vol] 31 mmol/L Normal 21-31 [facility] Comment on above: Performed By: #### 0 0121, 68486, 08389, 18481, 93712 #### [facility] [address] [place] [address], [place] Creatinine [Mass/Vol] 1.22 mg/dL Normal 0.70-1.30 [facility] Comment on above: Performed By: #### 0 0121, 51736, 15147, 49191, 80808 #### [facility] [address] [place] [address], [place] GFR/1.73 sq M predicted among blacks MDRD (S/P/Bld) [Vol rate/Area] mL/min/{1.73_m2} Normal >60 [facility] Comment on above: Performed By: #### 0 0121, 94615, 46281, 17975, 87831 #### [facility] [address] [place] [address], [place] GFR/1.73 sq M predicted among non-blacks MDRD (S/P/Bld) [Vol rate/Area] mL/min/{1.73_m2} Normal >60 [facility] Comment on above: Performed By: #### 0 0121, 73502, 65559, 08285, 07230 #### [facility] [address] [place] [address], [place] Glucose [Mass/Vol] 126 mg/dL High 70-100 [facility] Comment on above: Performed By: #### 0 0121, 95634, 37810, 47267, 89877 #### [facility] [address] [place] [address], [place] Potassium [Moles/Vol] 3.8 mmol/L Normal 3.5-5.1 [facility] Comment on above: Performed By: #### 0 0121, 37492, 35011, 26782, 42087 #### [facility] [address] [place] [address], [facility] Sodium [Moles/Vol] 139 mmol/L Normal 136-145 [facility] Comment on above: Performed By: #### 0 0121, 78991, 06228, 05729, 48688 #### [facility] [address] [place] [address], [facility] Urea nitrogen [Mass/Vol] 15 mg/dL Normal 7-25 [facility] Comment on above: Performed By: #### 0 0121, 95092, 90874, 96120, 76534 #### [facility] [address] [facility] BNP (B-TYPE NATRIURETIC PEPT PACHECO)on 04-07-2019 Natriuretic peptide B (Bld) [Mass/Vol] 502 pg/mL High 0-100 [facility] Comment on above: Result Comment: Give n the appropriate clinical setting a BNP result of >100 pg/mL indicates congestive heart failure. Performed By: #### 0 0121, 82554, 19965, 43299, 32807 #### [facility] [address] [facility] [place] [address], [facility] CBC W/DIFFon 04-07-2019 ABS BASOPHILS 0.1 10*3/uL Normal 0.0-0.2 [facility] Comment on above: Performed By: #### 0 0121, 19939, 18128, 36054, 55674 #### [facility] [address] [place] [address], [facility] ABS IMM GRANS 0.0 10*3/uL Normal 0.0-0.2 [facility] Comment on above: Performed By: #### 0 0121, 02345, 48112, 54990, 45383 #### [facility] [address] [place] [address], [facility] ABS NEUTROPHILS 5.1 10*3/uL Normal 1.6-7.6 [facility] Comment on above: Performed By: #### 0 0121, 84498, 96173, 87289, 67680 #### [facility] [address] [place] [address], [facility] Basophils/100 WBC (Bld) 1.5 % High 0.0-1.0 [facility] Comment on above: Performed By: #### 0 0121, 00915, 21416, 38784, 10688 #### [facility] [address] [place] [address], [facility] Eosinophils (Bld) [#/Vol] 0.3 10*3/uL Normal 0.0-0.5 [facility] Comment on above: Performed By: #### 0 0121, 53518, 70876, 18931, 99210 #### [facility] [address] [place] [address], [facility] Eosinophils/100 WBC (Bld) 3.7 % Normal 0.0-6.0 [facility] Comment on above: Performed By: #### 0 0121, 87367, 65048, 17321, 03666 #### [facility] [address] [address], [facility] Erythrocyte distribution width (RBC) [Ratio] 13.2 % Normal 11.5-15.0 [facility] Comment on above: Performed By: #### 0 0121, 23299, 73971, 27946, 95294 #### [facility] [address] [facility] [place] [address], [facility] Hematocrit (Bld) [Volume fraction] 39.2 % Normal 39.0-50.0 [facility] Comment on above: Performed By: #### 0 0121, 65046, 30109, 60941, 30834 #### [facility] [address] [place] [address], [facility] Hemoglobin (Bld) [Mass/Vol] 12.4 g/dL Low 13.0-17.0 [facility] Comment on above: Performed By: #### 0 0121, 82094, 36982, 17765, 40201 #### [facility] [address] [facility] [place] [address], [facility] IMMATURE GRANS 0.4 % Normal 0.0-1.0 [facility] Comment on above: Performed By: #### 0 0121, 85178, 02650, 88805, 15189 #### [facility] [address] [facility] [place] [address], [facility] Lymphocytes (Bld) [#/Vol] 1.7 10*3/uL Normal 1.2-4.0 [facility] Comment on above: Performed By: #### 0 0121, 84104, 38966, 33082, 30722 #### [facility] [address] [facility] [place] [address], [facility] Lymphocytes/100 WBC (Bld) 21.2 % Normal 20.0-45.0 [facility] Comment on above: Performed By: #### 0 0121, 31576, 47519, 73226, 34233 #### [facility] [address] [facility] [place] [address], [facility] MCH (RBC) [Entitic mass] 28.8 pg Normal 27.0-33.0 [facility] Comment on above: Performed By: #### 0 0121, 49606, 17299, 81957, 30819 #### [facility] [address] [place] [address], [facility] MCHC (RBC) [Mass/Vol] 31.6 g/dL Low 32.0-35.0 [facility] Comment on above: Performed By: #### 0 0121, 25696, 86606, 85647, 42425 #### [facility] [address] [facility] [place] [address], [facility] MCV (RBC) [Entitic vol] 91.0 fL Normal 82.0-98.0 [facility] Comment on above: Performed By: #### 0 0121, 02587, 93977, 76203, 33067 #### [facility] [address] [place] [address], [facility] Monocytes (Bld) [#/Vol] 0.9 10*3/uL Normal 0.1-1.0 [facility] Comment on above: Performed By: #### 0 0121, 80812, 99995, 29463, 98199 #### [facility] [address] [place] [address], [facility] MONOS 10.6 % Normal 5.0-12.0 [facility] Comment on above: Performed By: #### 0 0121, 69905, 87870, 44130, 97035 #### [facility] [address] [place] [address], [facility] Neutrophils/100 WBC (Bld) 62.6 % Normal 40.0-72.0 [facility] Comment on above: Performed By: #### 0 0121, 87205, 72055, 43579, 39351 #### [facility] [address] [facility] [place] [place] [address], [facility] Nucleated RBC/100 WBC (Bld) [Ratio] 0 % Normal 0-0 [facility] Comment on above: Performed By: #### 0 0121, 98565, 98947, 89444, 83100 #### [facility] [address] [place] [address], [facility] PLAT CNT 520 10*3/uL High 150-400 [facility] Comment on above: Performed By: #### 0 0121, 29747, 55377, 25274, 16917 #### [facility] [address] [place] [address], [facility] RBC (Bld) [#/Vol] 4.31 10*6/uL Normal 4.20-5.70 [facility] Comment on above: Performed By: #### 0 0121, 04419, 41264, 07210, 26538 #### [facility] [address] [place] [address], [facility] WBC (Bld) [#/Vol] 8.20 10*3/uL Normal 4.00-10.60 [facility] Comment on above: Performed By: #### 0 0121, 89571, 69472, 36175, 94502 #### [facility] [address] [place] [address], [facility] HEMOGLOBINon 04-07-2019 Hemoglobin (Bld) [Mass/Vol] CANCELED Normal 13.0-17.0 [facility] Comment on above: Result Comment: The released value 12.3 was canceled by OCREEGER on 04/07/2019 12:48 Performed By: #### 0 0121, 17919, 78783, 13812, 72098 #### [facility] [address] [place] [address], [facility] BASIC METABOLIC PANELon 06-2 Calcium [Mass/Vol] 9.0 mg/dL Normal 8.6-10.3 [facility] Comment on above: Order Comment: No: D o not add to previous draw Performed By: #### 0 0121, 86214, 74404, 03143, 68066 #### [facility] [address] [place] [address], [facility] Chloride [Moles/Vol] 98 mmol/L Normal 98-107 [facility] Comment on above: Order Comment: No: D o not add to previous draw Performed By: #### 0 0121, 47885, 97747, 11414, 26987 #### [facility] [address] [place] [address], [place] CO2 [Moles/Vol] 29 mmol/L Normal 21-31 [facility] Comment on above: Order Comment: No: D o not add to previous draw Performed By: #### 0 0121, 51502, 94833, 56255, 13030 #### [facility] [address] [place] [address], [place] Creatinine [Mass/Vol] 1.00 mg/dL Normal 0.70-1.30 [facility] Comment on above: Order Comment: No: D o not add to previous draw Performed By: #### 0 0121, 47357, 91853, 58995, 18170 #### [facility] [address] [place] [address], [place] GFR/1.73 sq M predicted among blacks MDRD (S/P/Bld) [Vol rate/Area] mL/min/{1.73_m2} Normal >60 [facility] Comment on above: Order Comment: No: D o not add to previous draw Performed By: #### 0 0121, 29234, 40399, 52277, 60190 #### [facility] [address] [place] [address], [place] GFR/1.73 sq M predicted among non-blacks MDRD (S/P/Bld) [Vol rate/Area] mL/min/{1.73_m2} Normal >60 [facility] Comment on above: Order Comment: No: D o not add to previous draw Performed By: #### 0 0121, 41554, 68099, 50164, 73864 #### [facility] [address] [place] [address], [place] Glucose [Mass/Vol] 96 mg/dL Normal 70-100 [facility] Comment on above: Order Comment: No: D o not add to previous draw Performed By: #### 0 0121, 53747, 29869, 28741, 88895 #### [facility] [address] [place] [address], [place] Potassium [Moles/Vol] 3.1 mmol/L Low 3.5-5.1 [facility] Comment on above: Order Comment: No: D o not add to previous draw Performed By: #### 0 0121, 58876, 28077, 96447, 86427 #### [facility] [address] [place] [address], [facility] Sodium [Moles/Vol] 138 mmol/L Normal 136-145 [facility] Comment on above: Order Comment: No: D o not add to previous draw Performed By: #### 0 0121, 70774, 81886, 01398, 22707 #### [facility] [address] [place] [address], [facility] Urea nitrogen [Mass/Vol] 24 mg/dL Normal 7-25 [facility] Comment on above: Order Comment: No: D o not add to previous draw Performed By: #### 0 0121, 43651, 01407, 53966, 37303 #### [facility] [address] CBC COMPLETE BLOOD COUNTon 0 - Erythrocyte distribution width (RBC) [Ratio] 13.6 % Normal 11.5-15.0 [facility] Comment on above: Order Comment: No: D o not add to previous draw Performed By: #### 0 0121, 38723, 64310, 87800, 48619 #### [facility] [address] [place] [address], [facility] Hematocrit (Bld) [Volume fraction] 34.7 % Low 39.0-50.0 [facility] Comment on above: Order Comment: No: D o not add to previous draw Performed By: #### 0 0121, 96490, 97433, 84058, 60053 #### [facility] [address] [place] [id number], [facility] Hemoglobin (Bld) [Mass/Vol] 11.3 g/dL Low 13.0-17.0 [facility] Comment on above: Order Comment: No: D o not add to previous draw Performed By: #### 0 0121, 42762, 49737, 71230, 65593 #### [facility] [address] [place] [address], [facility] MCH (RBC) [Entitic mass] 28.8 pg Normal 27.0-33.0 [facility] Comment on above: Order Comment: No: D o not add to previous draw Performed By: #### 0 0121, 64596, 73960, 70415, 39674 #### [facility] [address] [place] [address], [facility] MCHC (RBC) [Mass/Vol] 32.6 g/dL Normal 32.0-35.0 [facility] Comment on above: Order Comment: No: D o not add to previous draw Performed By: #### 0 0121, 55985, 92784, 35960, 07319 #### [facility] [address] [place] [address], [facility] MCV (RBC) [Entitic vol] 88.5 fL Normal 82.0-98.0 [facility] Comment on above: Order Comment: No: D o not add to previous draw Performed By: #### 0 0121, 43656, 75757, 54678, 95584 #### [facility] [address] [facility] [place] [place] [address], [facility] Nucleated RBC/100 WBC (Bld) [Ratio] 0 % Normal 0-0 [facility] Comment on above: Order Comment: No: D o not add to previous draw Performed By: #### 0 0121, 64330, 59015, 83770, 33842 #### [facility] [address] [facility] [place] [place] [address], [facility] PLAT CNT 205 10*3/uL Normal 150-400 [facility] Comment on above: Order Comment: No: D o not add to previous draw Performed By: #### 0 0121, 84120, 17106, 46247, 33381 #### [facility] [address] [place] [address], [place] RBC (Bld) [#/Vol] 3.92 10*6/uL Low 4.20-5.70 [facility] Comment on above: Order Comment: No: D o not add to previous draw Performed By: #### 0 0121, 00460, 07818, 77489, 98005 #### [facility] [address] [place] [address], [place] WBC (Bld) [#/Vol] 11.83 10*3/uL High 4.00-10.60 [facility] Comment on above: Order Comment: No: D o not add to previous draw Performed By: #### 0 0121, 48539, 71869, 35886, 19193 #### [facility] [address] [place] [address], [facility] MAGNESIUM BLOODon 03-27-2019 Magnesium [Mass/Vol] 2.3 mg/dL Normal 1.9-2.7 [facility] Comment on above: Order Comment: No: D o not add to previous draw Performed By: #### 0 0121, 41266, 79261, 85250, 08009 #### [facility] [address] [place] [address], [place] POC GLUCOSE LABon 03-27-2019 Glucose [Mass/Vol] 115 mg/dL High 70-100 [facility] Comment on above: Performed By: #### 0 0121, 15333, 28400, 47171, 58362 #### [facility] [address] [place] [address], [place] Glucose [Mass/Vol] 96 mg/dL Normal 70-100 [facility] Comment on above: Performed By: #### 0 0121, 25619, 24207, 90799, 50821 #### [facility] [address] [place] [address], [place] PORTABLE CHEST 1 VIEWon 03-01 PORTABLE CHEST 1 VIEW [facility] Department of Radiology [address] [place] [address] ======== Patient Name: TRACIE CRAIN : 1965 Sex: M Age: Race: NA Pt. Location: [id number] Patient Status: I Ordered Date: 03/27/2019 5:00:00 [...] findings. Electronically signed by:Divya Collins. Transcribed by: [email or web address], User Resident: ANAI ALVARADO Electronically Signed by: DIVYA COLLINS @ 03/27/2019 09:07 AM I personally read this/these film(s) with this resident Normal [facility] Comment on above: Order Comment: No: D o not add to previous draw BASIC METABOLIC PANELon - Calcium [Mass/Vol] 9.2 mg/dL Normal 8.6-10.3 [facility] Comment on above: Order Comment: No: D o not add to previous draw Performed By: #### 0 0121, 65757, 57180, 36997, 58919 #### [facility] [address] [place] [address], [place] Chloride [Moles/Vol] 101 mmol/L Normal 98-107 [facility] Comment on above: Order Comment: No: D o not add to previous draw Performed By: #### 0 0121, 74371, 62223, 25705, 43257 #### [facility] [address] [place] [address], [place] CO2 [Moles/Vol] 27 mmol/L Normal 21-31 [facility] Comment on above: Order Comment: No: D o not add to previous draw Performed By: #### 0 0121, 25644, 90814, 56334, 26603 #### [facility] [address] [place] [address], [place] Creatinine [Mass/Vol] 0.93 mg/dL Normal 0.70-1.30 [facility] Comment on above: Order Comment: No: D o not add to previous draw Performed By: #### 0 0121, 90627, 70932, 23921, 44407 #### [facility] [address] [place] [address], [place] GFR/1.73 sq M predicted among blacks MDRD (S/P/Bld) [Vol rate/Area] mL/min/{1.73_m2} Normal >60 [facility] Comment on above: Order Comment: No: D o not add to previous draw Performed By: #### 0 0121, 48059, 03850, 61050, 17149 #### [facility] [address] [place] [address], [place] GFR/1.73 sq M predicted among non-blacks MDRD (S/P/Bld) [Vol rate/Area] mL/min/{1.73_m2} Normal >60 [facility] Comment on above: Order Comment: No: D o not add to previous draw Performed By: #### 0 0121, 40463, 20992, 45402, 59005 #### [facility] [address] [place] [address], [place] Glucose [Mass/Vol] 111 mg/dL High 70-100 [facility] Comment on above: Order Comment: No: D o not add to previous draw Performed By: #### 0 0121, 02776, 85256, 16742, 66827 #### [facility] [address] [place] [address], [place] Potassium [Moles/Vol] 3.9 mmol/L Normal 3.5-5.1 [facility] Comment on above: Order Comment: No: D o not add to previous draw Performed By: #### 0 0121, 94657, 23350, 40290, 01589 #### [facility] [address] [place] [address], [place] Sodium [Moles/Vol] 137 mmol/L Normal 136-145 [facility] Comment on above: Order Comment: No: D o not add to previous draw Performed By: #### 0 0121, 94916, 22687, 25070, 21935 #### [facility] [address] [place] [address], [place] Urea nitrogen [Mass/Vol] 26 mg/dL High 7-25 [facility] Comment on above: Order Comment: No: D o not add to previous draw Performed By: #### 0 0121, 93051, 35648, 56805, 17674 #### [facility] [address] [place] [address], [facility] CBC W/DIFFon 03-26-2019 ABS BASOPHILS 0.1 10*3/uL Normal 0.0-0.2 [facility] Comment on above: Order Comment: No: D o not add to previous draw Performed By: #### 0 0121, 80231, 79904, 08849, 72942 #### [facility] [address] ABS IMM GRANS 0.5 10*3/uL High 0.0-0.2 [facility] Comment on above: Order Comment: No: D o not add to previous draw Performed By: #### 0 0121, 72733, 12916, 90014, 44011 #### [facility] [address] ABS NEUTROPHILS 10.2 10*3/uL High 1.6-7.6 [facility] Comment on above: Order Comment: No: D o not add to previous draw Performed By: #### 0 0121, 74475, 59148, 16584, 40585 #### [facility] [address] [place] [address], [facility] Basophils/100 WBC (Bld) 0.6 % Normal 0.0-1.0 [facility] Comment on above: Order Comment: No: D o not add to previous draw Performed By: #### 0 0121, 18548, 92721, 15877, 85143 #### [facility] [address] [place] [address], [facility] Eosinophils (Bld) [#/Vol] 0.4 10*3/uL Normal 0.0-0.5 [facility] Comment on above: Order Comment: No: D o not add to previous draw Performed By: #### 0 0121, 18018, 00390, 14601, 75713 #### [facility] [address] [place] [address], [facility] Eosinophils/100 WBC (Bld) 2.8 % Normal 0.0-6.0 [facility] Comment on above: Order Comment: No: D o not add to previous draw Performed By: #### 0 0121, 63835, 76519, 93640, 12410 #### [facility] [address] [place] [address], [facility] Erythrocyte distribution width (RBC) [Ratio] 13.6 % Normal 11.5-15.0 [facility] Comment on above: Order Comment: No: D o not add to previous draw Performed By: #### 0 0121, 77470, 99576, 39887, 90203 #### [facility] [address] Hematocrit (Bld) [Volume fraction] 34.5 % Low 39.0-50.0 [facility] Comment on above: Order Comment: No: D o not add to previous draw Performed By: #### 0 0121, 08275, 29143, 92071, 35854 #### [facility] [address] Hemoglobin (Bld) [Mass/Vol] 11.3 g/dL Low 13.0-17.0 [facility] Comment on above: Order Comment: No: D o not add to previous draw Performed By: #### 0 0121, 70376, 19420, 94179, 53365 #### [facility] [address] [place] [address], [facility] IMMATURE GRANS 3.5 % High 0.0-1.0 [facility] Comment on above: Order Comment: No: D o not add to previous draw Performed By: #### 0 0121, 71488, 56453, 88500, 78577 #### [facility] [address] [address], [facility] Lymphocytes (Bld) [#/Vol] 1.3 10*3/uL Normal 1.2-4.0 [facility] Comment on above: Order Comment: No: D o not add to previous draw Performed By: #### 0 0121, 34295, 16736, 65321, 74803 #### [facility] [address] [address], [facility] Lymphocytes/100 WBC (Bld) 9.2 % Low 20.0-45.0 [facility] Comment on above: Order Comment: No: D o not add to previous draw Performed By: #### 0 0121, 25760, 34132, 28257, 02976 #### [facility] [address] [facility] [place] [address], [facility] MCH (RBC) [Entitic mass] 28.9 pg Normal 27.0-33.0 [facility] Comment on above: Order Comment: No: D o not add to previous draw Performed By: #### 0 0121, 26700, 06485, 56910, 89485 #### [facility] [address] [place] [address], [facility] MCHC (RBC) [Mass/Vol] 32.8 g/dL Normal 32.0-35.0 [facility] Comment on above: Order Comment: No: D o not add to previous draw Performed By: #### 0 0121, 72504, 57264, 83525, 82055 #### [facility] [address] [facility] [place] [address], [facility] MCV (RBC) [Entitic vol] 88.2 fL Normal 82.0-98.0 [facility] Comment on above: Order Comment: No: D o not add to previous draw Performed By: #### 0 0121, 28878, 28919, 00781, 86037 #### [facility] [address] [place] [address], [place] Monocytes (Bld) [#/Vol] 1.7 10*3/uL High 0.1-1.0 [facility] Comment on above: Order Comment: No: D o not add to previous draw Performed By: #### 0 0121, 75892, 92594, 70324, 96550 #### [facility] [address] [place] [address], [place] MONOS 11.7 % Normal 5.0-12.0 [facility] Comment on above: Order Comment: No: D o not add to previous draw Performed By: #### 0 0121, 45665, 93646, 54487, 03175 #### [facility] [address] [place] [address], [facility] Neutrophils/100 WBC (Bld) 72.2 % High 40.0-72.0 [facility] Comment on above: Order Comment: No: D o not add to previous draw Performed By: #### 0 0121, 18511, 08016, 66364, 12549 #### [facility] [address] [place] [address], [facility] Nucleated RBC/100 WBC (Bld) [Ratio] 0 % Normal 0-0 [facility] Comment on above: Order Comment: No: D o not add to previous draw Performed By: #### 0 0121, 94509, 42673, 09418, 40764 #### [facility] [address] [place] [address], [place] PLAT CNT 215 10*3/uL Normal 150-400 [facility] Comment on above: Order Comment: No: D o not add to previous draw Performed By: #### 0 0121, 71438, 77653, 97104, 82464 #### [facility] [address] [place] [address], [facility] RBC (Bld) [#/Vol] 3.91 10*6/uL Low 4.20-5.70 [facility] Comment on above: Order Comment: No: D o not add to previous draw Performed By: #### 0 0121, 10769, 96740, 04693, 48967 #### [facility] [address] [place] [address], [place] WBC (Bld) [#/Vol] 14.17 10*3/uL High 4.00-10.60 [facility] Comment on above: Order Comment: No: D o not add to previous draw Performed By: #### 0 0121, 49761, 79821, 61975, 72277 #### [facility] [address] [place] [address], [place] POC GLUCOSE LABon 03-26-2019 Glucose [Mass/Vol] 129 mg/dL High 70-100 [facility] Comment on above: Performed By: #### 0 0121, 33602, 89982, 75375, 10485 #### [facility] [address] [place] [address], [place] Glucose [Mass/Vol] 129 mg/dL High 70-100 [facility] Comment on above: Performed By: #### 0 0121, 46742, 46469, 20872, 43900 #### [facility] [address] [place] [address], [place] Glucose [Mass/Vol] 130 mg/dL High 70-100 [facility] Comment on above: Performed By: #### 0 0121, 06156, 30745, 85869, 72536 #### [facility] [address] [place] [address], [place] Glucose [Mass/Vol] 91 mg/dL Normal 70-100 [facility] Comment on above: Performed By: #### 0 0121, 49983, 87227, 35105, 38475 #### [facility] [address] [place] [address], [place] PORTABLE CHEST 1 VIEWon 03-01 PORTABLE CHEST 1 VIEW [facility] Department of Radiology [address] [place] [address] ======== Patient Name: TRACIE CRAIN : 1965 Sex: M Age: Race: NA Pt. Location: [id number] Patient Status: I Ordered Date: 03/26/2019 7:00:00 [...] findings. Electronically signed by:Divya Collins. Transcribed by: [email or web address], User Resident: [email or web address] LIAO Electronically Signed by: DIVYA COLLINS @ 03/26/2019 10:03 AM I personally read this/these film(s) with this resident Normal [facility] Comment on above: Order Comment: No: D o not add to previous draw BASIC METABOLIC PANELon 03-01 Calcium [Mass/Vol] 9.1 mg/dL Normal 8.6-10.3 [facility] Comment on above: Order Comment: << On admission If not done in ED>> No: Do not add to previous draw Performed By: #### 0 0121, 87076, 94262, 38246, 73113 #### [facility] [address] [place] [address], [facility] Chloride [Moles/Vol] 98 mmol/L Normal 98-107 [facility] Comment on above: Order Comment: << On admission If not done in ED>> No: Do not add to previous draw Performed By: #### 0 0121, 48225, 98996, 70622, 70682 #### [facility] [address] [place] [address], [place] CO2 [Moles/Vol] 29 mmol/L Normal 21-31 [facility] Comment on above: Order Comment: << On admission If not done in ED>> No: Do not add to previous draw Performed By: #### 0 0121, 18863, 98471, 88395, 51651 #### [facility] [address] [place] [address], [place] Creatinine [Mass/Vol] 1.01 mg/dL Normal 0.70-1.30 [facility] Comment on above: Order Comment: << On admission If not done in ED>> No: Do not add to previous draw Performed By: #### 0 0121, 50945, 84520, 16792, 96782 #### [facility] [address] [place] [address], [place] GFR/1.73 sq M predicted among blacks MDRD (S/P/Bld) [Vol rate/Area] mL/min/{1.73_m2} Normal >60 [facility] Comment on above: Order Comment: << On admission If not done in ED>> No: Do not add to previous draw Performed By: #### 0 0121, 82718, 66110, 68024, 52140 #### [facility] [address] [place] [address], [place] GFR/1.73 sq M predicted among non-blacks MDRD (S/P/Bld) [Vol rate/Area] mL/min/{1.73_m2} Normal >60 [facility] Comment on above: Order Comment: << On admission If not done in ED>> No: Do not add to previous draw Performed By: #### 0 0121, 48686, 68895, 82272, 98653 #### [facility] [address] [place] [address], [place] Glucose [Mass/Vol] 123 mg/dL High 70-100 [facility] Comment on above: Order Comment: << On admission If not done in ED>> No: Do not add to previous draw Performed By: #### 0 0121, 22174, 61623, 35526, 18254 #### [facility] [address] [place] [address], [place] Potassium [Moles/Vol] 3.9 mmol/L Normal 3.5-5.1 [facility] Comment on above: Order Comment: << On admission If not done in ED>> No: Do not add to previous draw Performed By: #### 0 0121, 38419, 48107, 06543, 03728 #### [facility] [address] [place] [address], [place] Sodium [Moles/Vol] 134 mmol/L Low 136-145 [facility] Comment on above: Order Comment: << On admission If not done in ED>> No: Do not add to previous draw Performed By: #### 0 0121, 25065, 76524, 18360, 43098 #### [facility] [address] [place] [address], [facility] Urea nitrogen [Mass/Vol] 29 mg/dL High 7-25 [facility] Comment on above: Order Comment: << On admission If not done in ED>> No: Do not add to previous draw Performed By: #### 0 0121, 09587, 46701, 20368, 99304 #### [facility] [address] [place] [address], [facility] CBC W/DIFFon 03-25-2019 ABS BASOPHILS 0.1 10*3/uL Normal 0.0-0.2 [facility] Comment on above: Order Comment: << On admission If not done in ED>> No: Do not add to previous draw Performed By: #### 0 0121, 58810, 41198, 09506, 12789 #### [facility] [address] [facility] [place] [place] [address], [facility] ABS NEUTROPHILS 11.2 10*3/uL High 1.6-7.6 [facility] Comment on above: Order Comment: << On admission If not done in ED>> No: Do not add to previous draw Performed By: #### 0 0121, 07714, 58489, 53454, 25737 #### [facility] [address] [place] [address], [facility] Basophils/100 WBC (Bld) 0.9 % Normal 0.0-1.0 [facility] Comment on above: Order Comment: << On admission If not done in ED>> No: Do not add to previous draw Performed By: #### 0 0121, 50209, 25047, 22361, 29349 #### [facility] [address] Eosinophils (Bld) [#/Vol] 0.1 10*3/uL Normal 0.0-0.5 [facility] Comment on above: Order Comment: << On admission If not done in ED>> No: Do not add to previous draw Performed By: #### 0 0121, 90846, 87716, 44665, 07211 #### [facility] [address] [place] [address], [facility] Eosinophils/100 WBC (Bld) 0.9 % Normal 0.0-6.0 [facility] Comment on above: Order Comment: << On admission If not done in ED>> No: Do not add to previous draw Performed By: #### 0 0121, 48891, 27525, 56636, 80479 #### [facility] [address] [facility] [address] Erythrocyte distribution width (RBC) [Ratio] 13.4 % Normal 11.5-15.0 [facility] Comment on above: Order Comment: << On admission If not done in ED>> No: Do not add to previous draw Performed By: #### 0 0121, 63352, 12610, 13395, 51295 #### [facility] [address] [place] [address], [facility] GIANT PLATELETS Present Normal [facility] Comment on above: Order Comment: << On admission If not done in ED>> No: Do not add to previous draw Performed By: #### 0 0121, 53622, 13711, 37211, 90570 #### [facility] [address] [place] [address], [facility] Hematocrit (Bld) [Volume fraction] 35.4 % Low 39.0-50.0 [facility] Comment on above: Order Comment: << On admission If not done in ED>> No: Do not add to previous draw Performed By: #### 0 0121, 55662, 09938, 25684, 84241 #### [facility] [address] [place] [address], [facility] Hemoglobin (Bld) [Mass/Vol] 11.1 g/dL Low 13.0-17.0 [facility] Comment on above: Order Comment: << On admission If not done in ED>> No: Do not add to previous draw Performed By: #### 0 0121, 00741, 07205, 53344, 12697 #### [facility] [address] [place] [address], [facility] Lymphocytes (Bld) [#/Vol] 0.8 10*3/uL Low 1.2-4.0 [facility] Comment on above: Order Comment: << On admission If not done in ED>> No: Do not add to previous draw Performed By: #### 0 0121, 47936, 05650, 63418, 87267 #### [facility] [address] Lymphocytes/100 WBC (Bld) 6.3 % Low 20.0-45.0 [facility] Comment on above: Order Comment: << On admission If not done in ED>> No: Do not add to previous draw Performed By: #### 0 0121, 08656, 10728, 09590, 48348 #### [facility] [address] [facility] [place] [address], [facility] MCH (RBC) [Entitic mass] 28.8 pg Normal 27.0-33.0 [facility] Comment on above: Order Comment: << On admission If not done in ED>> No: Do not add to previous draw Performed By: #### 0 0121, 80740, 84468, 86630, 95473 #### [facility] [address] [place] [address], [facility] MCHC (RBC) [Mass/Vol] 31.4 g/dL Low 32.0-35.0 [facility] Comment on above: Order Comment: << On admission If not done in ED>> No: Do not add to previous draw Performed By: #### 0 0121, 12311, 08153, 34580, 60738 #### [facility] [address] [place] [address], [facility] MCV (RBC) [Entitic vol] 91.9 fL Normal 82.0-98.0 [facility] Comment on above: Order Comment: << On admission If not done in ED>> No: Do not add to previous draw Performed By: #### 0 0121, 98111, 09294, 26995, 25420 #### [facility] [address] [place] [address], [facility] Monocytes (Bld) [#/Vol] 0.7 10*3/uL Normal 0.1-1.0 [facility] Comment on above: Order Comment: << On admission If not done in ED>> No: Do not add to previous draw Performed By: #### 0 0121, 08250, 37624, 69762, 76092 #### [facility] [address] [facility] [place] [place] [address], [facility] MONOS 5.4 % Normal 5.0-12.0 [facility] Comment on above: Order Comment: << On admission If not done in ED>> No: Do not add to previous draw Performed By: #### 0 0121, 49330, 24753, 12351, 00873 #### [facility] [address] [facility] [place] [place] [address], [facility] MYELOS 0.9 % High .0-.0 [facility] Comment on above: Order Comment: << On admission If not done in ED>> No: Do not add to previous draw Performed By: #### 0 0121, 35088, 33479, 56654, 12807 #### [facility] [address] [place] [address], [facility] Neutrophils/100 WBC (Bld) 85.6 % High 40.0-72.0 [facility] Comment on above: Order Comment: << On admission If not done in ED>> No: Do not add to previous draw Performed By: #### 0 0121, 35022, 54982, 01485, 41217 #### [facility] [address] [place] [address], [facility] Nucleated RBC/100 WBC (Bld) [Ratio] 0 % Normal 0-0 [facility] Comment on above: Order Comment: << On admission If not done in ED>> No: Do not add to previous draw Performed By: #### 0 0121, 87184, 77028, 10536, 01636 #### [facility] [address] [address], [facility] PLAT CNT 196 10*3/uL Normal 150-400 [facility] Comment on above: Order Comment: << On admission If not done in ED>> No: Do not add to previous draw Performed By: #### 0 0121, 61740, 87179, 07407, 28020 #### [facility] [address] [facility] [place] [place] [address], [facility] RBC (Bld) [#/Vol] 3.85 10*6/uL Low 4.20-5.70 [facility] Comment on above: Order Comment: << On admission If not done in ED>> No: Do not add to previous draw Performed By: #### 0 0121, 00096, 82610, 73068, 22843 #### [facility] [address] [place] [id number], [facility] WBC (Bld) [#/Vol] 13.09 10*3/uL High 4.00-10.60 [facility] Comment on above: Order Comment: << On admission If not done in ED>> No: Do not add to previous draw Performed By: #### 0 0121, 08777, 94173, 40614, 60370 #### [facility] [address] [place] [address], [facility] MAGNESIUM BLOODon 03-25-2019 Magnesium [Mass/Vol] 2.3 mg/dL Normal 1.9-2.7 [facility] Comment on above: Order Comment: << On admission If not done in ED>> No: Do not add to previous draw Performed By: #### 0 0121, 34605, 72554, 96708, 03195 #### [facility] [address] [place] [address], [place] PHOSPHORUS BLOODon 9 Phosphate [Mass/Vol] 2.6 mg/dL Normal 2.5-5.0 [facility] Comment on above: Order Comment: << On admission If not done in ED>> No: Do not add to previous draw Performed By: #### 0 0121, 85373, 91456, 53762, 60479 #### [facility] [address] [place] [address], [place] POC GLUCOSE LABon 03-25-2019 Glucose [Mass/Vol] 103 mg/dL High 70-100 [facility] Comment on above: Performed By: #### 0 0121, 76980, 04209, 44039, 58336 #### [facility] [address] [place] [address], [place] Glucose [Mass/Vol] 113 mg/dL High 70-100 [facility] [facility] Comment on above: Performed By: #### 0 0121, 16653, 02392, 71783, 76120 #### [facility] [address] [place] [address], [place] Glucose [Mass/Vol] 120 mg/dL High 70-100 [facility] Comment on above: Performed By: #### 0 0121, 90338, 29675, 47545, 90750 #### [facility] [address] [place] [address], [place] Glucose [Mass/Vol] 110 mg/dL High 70-100 [facility] Comment on above: Performed By: #### 0 0121, 76816, 25988, 08236, 14943 #### [address] PORTABLE CHEST 1 VIEWon 03-01 PORTABLE CHEST 1 VIEW [facility] Department of Radiology [address] [place] [address] ======== Patient Name: TRACIE CRAIN : 1965 Sex: M Age: Race: NA Pt. Location: [id number] Patient Status: I Ordered Date: 03/25/2019 7:00:00 [...] findings. Electronically signed by:Divya Collins. Transcribed by: [email or web address], User Resident: KAREEM LIAO Electronically Signed by: DIVYA COLLINS @ 03/25/2019 11:10 AM I personally read this/these film(s) with this resident Normal The [facility] Comment on above: Order Comment: No: D o not add to previous draw BASIC METABOLIC PANELon 03-01 Calcium [Mass/Vol] 9.0 mg/dL Normal 8.6-10.3 [facility] Comment on above: Order Comment: << On admission If not done in ED>> No: Do not add to previous draw Performed By: #### 0 0121, 08044, 03932, 54845, 89013 #### [facility] [address] [place] [address], [facility] Chloride [Moles/Vol] 96 mmol/L Low 98-107 [facility] Comment on above: Order Comment: << On admission If not done in ED>> No: Do not add to previous draw Performed By: #### 0 0121, 55701, 46296, 34486, 08304 #### [facility] [address] [place] [address], [place] CO2 [Moles/Vol] 30 mmol/L Normal 21-31 [facility] Comment on above: Order Comment: << On admission If not done in ED>> No: Do not add to previous draw Performed By: #### 0 0121, 25662, 92029, 39326, 58593 #### [facility] [address] [place] [address], [facility] Creatinine [Mass/Vol] 0.89 mg/dL Normal 0.70-1.30 [facility] Comment on above: Order Comment: << On admission If not done in ED>> No: Do not add to previous draw Performed By: #### 0 0121, 12529, 51344, 60461, 15069 #### [facility] [address] [place] [address], [facility] GFR/1.73 sq M predicted among blacks MDRD (S/P/Bld) [Vol rate/Area] mL/min/{1.73_m2} Normal >60 [facility] Comment on above: Order Comment: << On admission If not done in ED>> No: Do not add to previous draw Performed By: #### 0 0121, 36957, 09607, 81176, 32475 #### [facility] [address] [place] [address], [facility] GFR/1.73 sq M predicted among non-blacks MDRD (S/P/Bld) [Vol rate/Area] mL/min/{1.73_m2} Normal >60 [facility] Comment on above: Order Comment: << On admission If not done in ED>> No: Do not add to previous draw Performed By: #### 0 0121, 16196, 87425, 42040, 42611 #### [facility] [address] [place] [address], [facility] Glucose [Mass/Vol] 98 mg/dL Normal 70-100 [facility] Comment on above: Order Comment: << On admission If not done in ED>> No: Do not add to previous draw Performed By: #### 0 0121, 15577, 12409, 94478, 36730 #### [facility] [address] [place] [address], [place] Potassium [Moles/Vol] 3.2 mmol/L Low 3.5-5.1 [facility] Comment on above: Order Comment: << On admission If not done in ED>> No: Do not add to previous draw Performed By: #### 0 0121, 06609, 67537, 66121, 19753 #### [facility] [address] Sodium [Moles/Vol] 135 mmol/L Low 136-145 [facility] Comment on above: Order Comment: << On admission If not done in ED>> No: Do not add to previous draw Performed By: #### 0 0121, 95326, 38611, 03402, 34495 #### [facility] [address] Urea nitrogen [Mass/Vol] 29 mg/dL High 7-25 [facility] Comment on above: Order Comment: << On admission If not done in ED>> No: Do not add to previous draw Performed By: #### 0 0121, 75637, 92939, 47006, 22338 #### [facility] [address] CBC W/DIFFon 03-24-2019 ABS BASOPHILS 0.1 10*3/uL Normal 0.0-0.2 The [facility] Comment on above: Order Comment: << On admission If not done in ED>> No: Do not add to previous draw Performed By: #### 0 0121, 07646, 20484, 29761, 82984 #### [facility] [address] ABS IMM GRANS 0.1 10*3/uL Normal 0.0-0.2 [facility] Comment on above: Order Comment: << On admission If not done in ED>> No: Do not add to previous draw Performed By: #### 0 0121, 85862, 48112, 96122, 38284 #### [facility] [address] ABS NEUTROPHILS 6.9 10*3/uL Normal 1.6-7.6 The [facility] Comment on above: Order Comment: << On admission If not done in ED>> No: Do not add to previous draw Performed By: #### 0 0121, 19779, 55154, 84702, 71975 #### [facility] [address] [place] [address], [facility] Basophils/100 WBC (Bld) 0.8 % Normal 0.0-1.0 [facility] Comment on above: Order Comment: << On admission If not done in ED>> No: Do not add to previous draw Performed By: #### 0 0121, 94395, 19567, 80127, 63405 #### [facility] [address] [place] [address], [facility] Eosinophils (Bld) [#/Vol] 0.3 10*3/uL Normal 0.0-0.5 [facility] Comment on above: Order Comment: << On admission If not done in ED>> No: Do not add to previous draw Performed By: #### 0 0121, 90052, 50166, 56083, 51975 #### [facility] [address] [facility] [place] [address], [facility] Eosinophils/100 WBC (Bld) 2.8 % Normal 0.0-6.0 [facility] Comment on above: Order Comment: << On admission If not done in ED>> No: Do not add to previous draw Performed By: #### 0 0121, 75353, 03022, 05882, 17044 #### [facility] [address] [place] [address], [facility] Erythrocyte distribution width (RBC) [Ratio] 13.5 % Normal 11.5-15.0 [facility] Comment on above: Order Comment: << On admission If not done in ED>> No: Do not add to previous draw Performed By: #### 0 0121, 34589, 83515, 52940, 15676 #### [facility] [address] [place] [address], [facility] Hematocrit (Bld) [Volume fraction] 33.0 % Low 39.0-50.0 [facility] Comment on above: Order Comment: << On admission If not done in ED>> No: Do not add to previous draw Performed By: #### 0 0121, 50110, 52490, 74161, 35599 #### [facility] [address] [place] [address], [facility] Hemoglobin (Bld) [Mass/Vol] 10.4 g/dL Low 13.0-17.0 [facility] Comment on above: Order Comment: << On admission If not done in ED>> No: Do not add to previous draw Performed By: #### 0 0121, 90419, 00145, 82804, 24215 #### [facility] [address] [facility] [place] [address], [facility] IMMATURE GRANS 1.2 % High 0.0-1.0 [facility] Comment on above: Order Comment: << On admission If not done in ED>> No: Do not add to previous draw Performed By: #### 0 0121, 86244, 64357, 34177, 47354 #### [facility] [address] [facility] [place] [address], [facility] Lymphocytes (Bld) [#/Vol] 1.5 10*3/uL Normal 1.2-4.0 [facility] Comment on above: Order Comment: << On admission If not done in ED>> No: Do not add to previous draw Performed By: #### 0 0121, 89208, 37084, 04404, 35583 #### [facility] [address] [place] [address], [facility] Lymphocytes/100 WBC (Bld) 14.4 % Low 20.0-45.0 [facility] Comment on above: Order Comment: << On admission If not done in ED>> No: Do not add to previous draw Performed By: #### 0 0121, 80675, 67386, 71994, 09302 #### [facility] [address] [place], [place] [address] [place] [address] MCH (RBC) [Entitic mass] 28.8 pg Normal 27.0-33.0 [facility] Comment on above: Order Comment: << On admission If not done in ED>> No: Do not add to previous draw Performed By: #### 0 0121, 40120, 15767, 25123, 68381 #### [facility] [address] MCHC (RBC) [Mass/Vol] 31.5 g/dL Low 32.0-35.0 [facility] Comment on above: Order Comment: << On admission If not done in ED>> No: Do not add to previous draw Performed By: #### 0 0121, 57486, 36957, 31461, 62224 #### [facility] [address] [facility] MCV (RBC) [Entitic vol] 91.4 fL Normal 82.0-98.0 [facility] Comment on above: Order Comment: << On admission If not done in ED>> No: Do not add to previous draw Performed By: #### 0 0121, 55044, 67280, 49847, 39203 #### [facility] [address] Monocytes (Bld) [#/Vol] 1.3 10*3/uL High 0.1-1.0 [facility] Comment on above: Order Comment: << On admission If not done in ED>> No: Do not add to previous draw Performed By: #### 0 0121, 08702, 31167, 03916, 98282 #### [facility] [address] [facility]. [address] MONOS 13.1 % High 5.0-12.0 [facility] Comment on above: Order Comment: << On admission If not done in ED>> No: Do not add to previous draw Performed By: #### 0 0121, 72895, 10813, 77349, 33643 #### [facility] [address] [place] [address], [facility] Neutrophils/100 WBC (Bld) 67.7 % Normal 40.0-72.0 [facility] Comment on above: Order Comment: << On admission If not done in ED>> No: Do not add to previous draw Performed By: #### 0 0121, 63554, 01156, 58579, 82825 #### [facility] [address] [place] [address], [facility] Nucleated RBC/100 WBC (Bld) [Ratio] 0 % Normal 0-0 [facility] Comment on above: Order Comment: << On admission If not done in ED>> No: Do not add to previous draw Performed By: #### 0 0121, 20796, 47110, 84475, 66682 #### [facility] [address] [facility] [place] [place] [address], [facility] PLAT CNT 166 10*3/uL Normal 150-400 The [facility] Comment on above: Order Comment: << On admission If not done in ED>> No: Do not add to previous draw Performed By: #### 0 0121, 44141, 86306, 13549, 91892 #### [facility] [address] [facility] [place] [address], [facility] RBC (Bld) [#/Vol] 3.61 10*6/uL Low 4.20-5.70 The [facility] Comment on above: Order Comment: << On admission If not done in ED>> No: Do not add to previous draw Performed By: #### 0 0121, 57770, 34627, 65918, 01686 #### [facility] [address] [place] [address], [facility] WBC (Bld) [#/Vol] 10.21 10*3/uL Normal 4.00-10.60 [facility] Comment on above: Order Comment: << On admission If not done in ED>> No: Do not add to previous draw Performed By: #### 0 0121, 31265, 03945, 15037, 42653 #### [facility] [address] [place] [address], [facility] MAGNESIUM BLOODon 03-24-2019 Magnesium [Mass/Vol] 2.4 mg/dL Normal 1.9-2.7 [facility] Comment on above: Order Comment: << On admission If not done in ED>> No: Do not add to previous draw Performed By: #### 0 0121, 78236, 31773, 90336, 78966 #### [facility] [address] [place] [address], [facility] PHOSPHORUS BLOODon 9 Phosphate [Mass/Vol] 2.9 mg/dL Normal 2.5-5.0 [facility] Comment on above: Order Comment: << On admission If not done in ED>> No: Do not add to previous draw Performed By: #### 0 0121, 05368, 68879, 11736, 03423 #### [facility] [address] [place] [address], [facility] POC GLUCOSE LABon 03-24-2019 Glucose [Mass/Vol] 107 mg/dL High 70-100 [facility] Comment on above: Performed By: #### 0 0121, 22444, 67823, 80518, 56891 #### [facility] [address] [place] [address], [facility] PORTABLE CHEST 1 VIEWon 03-01 PORTABLE CHEST 1 VIEW [facility] Department of Radiology [address] [place] [address] ======== Patient Name: TRACIE CRAIN : 1965 Sex: M Age: Race: NA Pt. Location: [id number] Patient Status: I Ordered Date: 03/24/2019 4:00:00 [...] recommended. Electronically signed by:Scottie Fall. Transcribed by: [email or web address], User Resident: Electronically Signed by: SCOTTIE FALL @ 03/24/2019 10:43 AM Normal [facility] Comment on above: Order Comment: << On admission If not done in ED>> No: Do not add to previous draw POC GLUCOSE LABon 03-23-2019 Glucose [Mass/Vol] 150 mg/dL High 70-100 [facility] Comment on above: Performed By: #### 0 0121, 32009, 28063, 18287, 36666 #### [facility] [address] [place] [address], [place] Glucose [Mass/Vol] 110 mg/dL High 70-100 [facility] Comment on above: Performed By: #### 0 0121, 85879, 52260, 22516, 16024 #### [facility] [address] [place] [address], [place] Glucose [Mass/Vol] 112 mg/dL High 70-100 [facility] Comment on above: Performed By: #### 0 0121, 55311, 66228, 13147, 00658 #### [facility] [address] [place] [address], [place] Glucose [Mass/Vol] 93 mg/dL Normal 70-100 [facility] Comment on above: Performed By: #### 0 0121, 76831, 13546, 03167, 73125 #### [facility] [address] [place] [address], [place] ARTERIAL BLOOD GAS WITH ICAo n 03-22-2019 BASE EXCESS 4 mmol/L High -2-3 [facility] Comment on above: Performed By: #### 0 0121, 94098, 10618, 82372, 63915 #### [facility] [address] [place] [address], [place] [employer] NASAL CANNULA Normal The [facility] Comment on above: Performed By: #### 0 0121, 14368, 12957, 03423, 85880 #### [facility] [address] [place] [address], [place] HCO3 (Bld) [Moles/Vol] 27 mmol/L Normal 21-28 [facility] Comment on above: Performed By: #### 0 0121, 00710, 43709, 06973, 91660 #### [facility] [address] [place] [address], [place] IONIZED CALCIUM 1.14 mmol/L Normal 1.13-1.32 [facility] Comment on above: Performed By: #### 0 0121, 04063, 17160, 50073, 86699 #### [facility] [address] [place] [address], [facility] LPM 6.0 LPM Normal [facility] Comment on above: Performed By: #### 0 0121, 71670, 27436, 26522, 26365 #### [facility] [address] [place] [address], [facility] Oxygen (Bld) [Partial pressure] 70 mm[Hg] Low 83-108 [facility] Comment on above: Performed By: #### 0 0121, 64893, 52080, 30813, 74664 #### [facility] [address] [place] [address], [facility] Oxygen saturation in Blood 93.0 % Low 94.0-97.0 [facility] Comment on above: Performed By: #### 0 0121, 55664, 94735, 61242, 16160 #### [facility] [address] [place] [address], [facility] PCO2 35 mmHg Normal 35-45 [facility] Comment on above: Performed By: #### 0 0121, 44024, 12556, 43484, 37792 #### [facility] [address] [place] [address], [facility] pH (Bld) 7.50 [pH] High 7.35-7.45 [facility] Comment on above: Result Comment: KINJAL REYNOSO NOTE: Effective 12/02/18, reference ranges for Respiratory GEM analyzers running arterial blood have been updated to reflect the manager card's published reference ranges. Performed By: #### 0 0121, 66875, 61768, 31940, 41537 #### [facility] [address] [place] [address], [facility] BASIC METABOLIC PANELon 06-2 Calcium [Mass/Vol] 8.9 mg/dL Normal 8.6-10.3 [facility] Comment on above: Order Comment: << On admission If not done in ED>> No: Do not add to previous draw Performed By: #### 0 0121, 21746, 17390, 01368, 83059 #### [facility] [address] [place] [address], [place] Chloride [Moles/Vol] 101 mmol/L Normal 98-107 [facility] Comment on above: Order Comment: << On admission If not done in ED>> No: Do not add to previous draw Performed By: #### 0 0121, 01019, 54542, 90434, 44242 #### [facility] [address] [place] [address], [place] CO2 [Moles/Vol] 28 mmol/L Normal 21-31 [facility] Comment on above: Order Comment: << On admission If not done in ED>> No: Do not add to previous draw Performed By: #### 0 0121, 53183, 41491, 42864, 73716 #### [facility] [address] [place] [address], [place] Creatinine [Mass/Vol] 1.29 mg/dL Normal 0.70-1.30 [facility] Comment on above: Order Comment: << On admission If not done in ED>> No: Do not add to previous draw Performed By: #### 0 0121, 49758, 83661, 88352, 15181 #### [facility] [address] [place] [address], [place] GFR/1.73 sq M predicted among blacks MDRD (S/P/Bld) [Vol rate/Area] mL/min/{1.73_m2} Normal >60 [facility] Comment on above: Order Comment: << On admission If not done in ED>> No: Do not add to previous draw Performed By: #### 0 0121, 06712, 37374, 72729, 33031 #### [facility] [address] [place] [address], [facility] GFR/1.73 sq M predicted among non-blacks MDRD (S/P/Bld) [Vol rate/Area] 58 ml/min/1.73sq m Abnormal >60 [facility] Comment on above: Order Comment: << On admission If not done in ED>> No: Do not add to previous draw Performed By: #### 0 0121, 18403, 95090, 55789, 83957 #### [facility] [address] [place] [address], [facility] Glucose [Mass/Vol] 111 mg/dL High 70-100 [facility] Comment on above: Order Comment: << On admission If not done in ED>> No: Do not add to previous draw Performed By: #### 0 0121, 51213, 54092, 06015, 09137 #### [facility] [address] [place] [address], [facility] Sodium [Moles/Vol] 139 mmol/L Normal 136-145 [facility] Comment on above: Order Comment: << On admission If not done in ED>> No: Do not add to previous draw Performed By: #### 0 0121, 77345, 37504, 11615, 81000 #### [facility] [address] [place] [address], [facility] Urea nitrogen [Mass/Vol] 23 mg/dL Normal 7-25 [facility] Comment on above: Order Comment: << On admission If not done in ED>> No: Do not add to previous draw Performed By: #### 0 0121, 71297, 38890, 47094, 12047 #### [facility] [address] [place] [address], [facility] CBC COMPLETE BLOOD COUNTon 0 - Erythrocyte distribution width (RBC) [Ratio] 13.4 % Normal 11.5-15.0 [facility] Comment on above: Order Comment: << On admission If not done in ED>> No: Do not add to previous draw Performed By: #### 0 0121, 87219, 70598, 29502, 65540 #### [facility] [address] [place] [address], [facility] Hematocrit (Bld) [Volume fraction] 31.2 % Low 39.0-50.0 [facility] Comment on above: Order Comment: << On admission If not done in ED>> No: Do not add to previous draw Performed By: #### 0 0121, 30603, 76197, 47976, 62929 #### [facility] [address] [place] [address], [facility] Hemoglobin (Bld) [Mass/Vol] 10.3 g/dL Low 13.0-17.0 [facility] Comment on above: Order Comment: << On admission If not done in ED>> No: Do not add to previous draw Performed By: #### 0 0121, 81266, 77702, 52247, 68835 #### [facility] [address] [place] [address], [facility] MCH (RBC) [Entitic mass] 28.9 pg Normal 27.0-33.0 [facility] Comment on above: Order Comment: << On admission If not done in ED>> No: Do not add to previous draw Performed By: #### 0 0121, 36581, 77481, 80690, 92790 #### [facility] [address] [place] [address], [facility] MCHC (RBC) [Mass/Vol] 33.0 g/dL Normal 32.0-35.0 [facility] Comment on above: Order Comment: << On admission If not done in ED>> No: Do not add to previous draw Performed By: #### 0 0121, 49425, 87067, 99599, 92448 #### [facility] [address] [place] [address], [facility] MCV (RBC) [Entitic vol] 87.4 fL Normal 82.0-98.0 [facility] Comment on above: Order Comment: << On admission If not done in ED>> No: Do not add to previous draw Performed By: #### 0 0121, 01001, 90070, 99927, 91213 #### [facility] [address] [place] [address], [facility] Nucleated RBC/100 WBC (Bld) [Ratio] 0 % Normal 0-0 [facility] Comment on above: Order Comment: << On admission If not done in ED>> No: Do not add to previous draw Performed By: #### 0 0121, 08381, 37414, 63783, 91854 #### [facility] [address] [place] [address], [facility] PLAT CNT 88 10*3/uL Low 150-400 [facility] Comment on above: Order Comment: << On admission If not done in ED>> No: Do not add to previous draw Performed By: #### 0 0121, 70175, 32232, 74110, 54013 #### [facility] [address] [place] [address], [facility] RBC (Bld) [#/Vol] 3.57 10*6/uL Low 4.20-5.70 [facility] Comment on above: Order Comment: << On admission If not done in ED>> No: Do not add to previous draw Performed By: #### 0 0121, 53875, 01963, 29013, 05665 #### [facility] [address] [place] [address], [place] WBC (Bld) [#/Vol] 13.95 10*3/uL High 4.00-10.60 [facility] Comment on above: Order Comment: << On admission If not done in ED>> No: Do not add to previous draw Performed By: #### 0 0121, 29337, 52053, 43844, 25103 #### [facility] [address] [place] [address], [facility] COOXIMETRYon 03-22-2019 COHB 2 % Normal [facility] Comment on above: Performed By: #### 0 0121, 48993, 42653, 43189, 83226 #### [facility] [address] [place] [address], [facility] METHB 1 % Normal [facility] Comment on above: Performed By: #### 0 0121, 84845, 22508, 93634, 11223 #### [facility] [address] [place] [address], [facility] Oxygen saturation in Blood 56.5 % Low 65.0-75.0 [facility] Comment on above: Performed By: #### 0 0121, 93153, 37778, 32032, 37658 #### [facility] [address] [place] [address], [facility] THB 9.9 g/dL Normal [facility] Comment on above: Performed By: #### 0 0121, 31665, 21752, 65991, 28899 #### [facility] [address] [place] [address], [place] MAGNESIUM BLOODon 03-22-2019 Magnesium [Mass/Vol] 2.0 mg/dL Normal 1.9-2.7 [facility] Comment on above: Order Comment: << On admission If not done in ED>> No: Do not add to previous draw Performed By: #### 0 0121, 53620, 27576, 26404, 00313 #### [facility] [address] [place] [address], [facility] Magnesium [Mass/Vol] 1.9 mg/dL Normal 1.9-2.7 [facility] Comment on above: Order Comment: << On admission If not done in ED>> No: Do not add to previous draw Performed By: #### 0 0121, 07684, 20086, 36091, 12889 #### [facility] [address] [place] [address], [place] PHOSPHORUS BLOODon 9 Phosphate [Mass/Vol] 3.6 mg/dL Normal 2.5-5.0 [facility] Comment on above: Order Comment: << On admission If not done in ED>> No: Do not add to previous draw Performed By: #### 0 0121, 09495, 21452, 06976, 60383 #### [facility] [address] [place] [address], [place] POC GLUCOSE LABon 03-22-2019 Glucose [Mass/Vol] 111 mg/dL High 70-100 [facility] Comment on above: Performed By: #### 0 0121, 47184, 55689, 09747, 21720 #### [facility] [address] [place] [address], [place] Glucose [Mass/Vol] 108 mg/dL High 70-100 [facility] Comment on above: Performed By: #### 0 0121, 21894, 82848, 57472, 03858 #### [facility] [address] [place] [address], [place] Glucose [Mass/Vol] 109 mg/dL High 70-100 [facility] Comment on above: Performed By: #### 0 0121, 08124, 32215, 85953, 53625 #### [facility] [address] [place] [address], [place] Glucose [Mass/Vol] 99 mg/dL Normal 70-100 [facility] Comment on above: Performed By: #### 0 0121, 17820, 17494, 93614, 11537 #### [facility] [address] [place] [address], [place] Glucose [Mass/Vol] 91 mg/dL Normal 70-100 [facility] Comment on above: Performed By: #### 0 0121, 15776, 72547, 43828, 30146 #### [address] PORTABLE CHEST 1 VIEWon 03-01 PORTABLE CHEST 1 VIEW [facility] Department of Radiology [address] [place] [id number] ======== Patient Name: TRACIE CRAIN : 1965 Sex: M Age: Race: NA Pt. Location: [id number] Patient Status: I Ordered Date: 03/22/2019 5:00:00 [...] removal of endotracheal and enteric tubes. Right-sided [place]-Sher catheter is again seen with tip overlying [...] Small left pleural effusion, unchanged. 3. Right-sided [place]-Sher catheter with tip projecting over the pulmonary trunk, unchanged. 4. Redemonstration of 2 chest tubes on the right, unchanged. Approved by:Cynthia Finley on 03/22/2019 8:06 AM EDT. I, Yenni Osuna, have reviewed the images and report and concur with these findings. Electronically signed by:Yenni Osuna. Transcribed by: [email or web address], User Resident: CYNTHIA FINLEY Electronically Signed by: YENNI OSUNA @ 03/22/2019 01:07 PM I personally read this/these film(s) with this resident Normal [facility] Comment on above: Order Comment: << On admission If not done in ED>> No: Do not add to previous draw POTASSIUM BLOODon 03-22-2019 Potassium [Moles/Vol] 3.1 mmol/L Low 3.5-5.1 [facility] Comment on above: Order Comment: << On admission If not done in ED>> No: Do not add to previous draw Performed By: #### 0 0121, 72104, 91979, 34843, 41653 #### [facility] [address] [facility]. [address] PROTHROMBIN TIMEon 201 9 INR Coag (PPP) [Relative time] 1.37 {INR} High 0.91-1.16 [facility] Comment on above: Order Comment: << On [...] CHEST 1995;[id number]. Performed By: #### 0 0121, 52722, 18215, 63154, 17848 #### [facility] [address] PT Coag (PPP) [Time] 16.9 s High 12.3-14.8 [facility] Comment on above: Order Comment: << On admission If not done in ED>> No: Do not add to previous draw Result Comment: ALL RESULTS MUST BE INTERPRETED WITH RESPECT TO BLOOD DRAWING ARTIFACT OR DILUTION ERROR OF ANTICOAGULANT AT THE TIME OF SAMPLING. Performed By: #### 0 0121, 39984, 04579, 32481, 33872 #### [facility] [address] ARTERIAL BLOOD GAS W/COOXon 03-21-2019 BASE EXCESS 1 mmol/L Normal -2-3 [facility] Comment on above: Performed By: #### 0 0121, 31253, 16808, 41378, 42291 #### [facility] [address] [place] [address], [facility] COHB 1.4 % Normal 0.0-1.5 [facility] Comment on above: Performed By: #### 0 0121, 80058, 00046, 98907, 94736 #### [facility] [address] [place] [address], [place] FIO2 40 % Normal [facility] Comment on above: Performed By: #### 0 0121, 29499, 81493, 38403, 61276 #### [facility] [address] [place] [address], [place] HCO3 (Bld) [Moles/Vol] 24 mmol/L Normal 21-28 [facility] Comment on above: Performed By: #### 0 0121, 11605, 52407, 61992, 67627 #### [facility] [address] [place] [address], [place] METHB 1.1 % Normal 0.0-1.5 [facility] Comment on above: Performed By: #### 0 0121, 15018, 88865, 21022, 08673 #### [facility] [address] [place] [address], [place] MIN VOLUME 13.1 Normal [facility] Comment on above: Performed By: #### 0 0121, 65684, 21310, 55066, 70031 #### [facility] [address] [place] [address], [place] MODALITY Positive Normal [facility] Comment on above: Performed By: #### 0 0121, 18206, 74266, 99428, 58899 #### [facility] [address] [place] [address], [place] Oxygen (Bld) [Partial pressure] 86 mm[Hg] Normal 83-108 [facility] Comment on above: Performed By: #### 0 0121, 96903, 40091, 77415, 83987 #### [facility] [address] [place] [address], [place] Oxygen saturation in Blood 94.8 % Normal 94.0-97.0 [facility] Comment on above: Performed By: #### 0 0121, 50617, 72506, 15982, 75647 #### [facility] [address] [place] [address], [place] PCO2 32 mmHg Low 35-45 [facility] Comment on above: Performed By: #### 0 0121, 58675, 68598, 10391, 31404 #### [facility] [address] [place] [address], [place] PEEP 8.0 CMH20 Normal [facility] Comment on above: Performed By: #### 0 0121, 68663, 84005, 23999, 65215 #### [facility] [address] [place] [address], [place] pH (Bld) 7.49 [pH] High 7.35-7.45 [facility] Comment on above: Result Comment: KINJAL REYNOSO NOTE: Effective 12/02/18, reference ranges for Respiratory GEM analyzers running arterial blood have been updated to reflect the manager card's published reference ranges. Performed By: #### 0 0121, 35155, 48129, 90956, 65880 #### [facility] [address] [place] [address], [place] PRESSURE SUPPORT 5 Normal [facility] Comment on above: Performed By: #### 0 0121, 37460, 28510, 02321, 30618 #### [facility] [address] [place] [address], [place] THB 10.3 g/dL Low 12.0-16.3 [facility] Comment on above: Performed By: #### 0 0121, 77982, 85576, 80499, 01987 #### [facility] [address] [place] [address], [place] ARTERIAL BLOOD GAS WITH ICAo n 03-21-2019 BASE EXCESS 4 mmol/L High -2-3 [facility] Comment on above: Performed By: #### 0 0121, 03194, 46202, 08905, 54162 #### [facility] [address] [place] [address], [place] [employer] [place] Normal [facility] Comment on above: Performed By: #### 0 0121, 42859, 85424, 38738, 87670 #### [facility] [address] [place] [address], [facility] HCO3 (Bld) [Moles/Vol] 27 mmol/L Normal 21-28 [facility] Comment on above: Performed By: #### 0 0121, 90604, 74887, 49626, 63326 #### [facility] [address] [place] [address], [facility] IONIZED CALCIUM 1.17 mmol/L Normal 1.13-1.32 [facility] Comment on above: Performed By: #### 0 0121, 77531, 05585, 58466, 32770 #### [facility] [address] [place] [address], [facility] LPM 6.0 LPM Normal [facility] Comment on above: Performed By: #### 0 0121, 24152, 79407, 15710, 37818 #### [facility] [address] [facility] [place] [address], [facility] Oxygen (Bld) [Partial pressure] 67 mm[Hg] Low 83-108 [facility] Comment on above: Performed By: #### 0 0121, 73696, 73988, 13969, 55968 #### [facility] [address] [place] [address], [facility] Oxygen saturation in Blood 92.7 % Low 94.0-97.0 [facility] Comment on above: Performed By: #### 0 0121, 26694, 07254, 42445, 47711 #### [facility] [address] [place] [address], [facility] PCO2 36 mmHg Normal 35-45 [facility] Comment on above: Performed By: #### 0 0121, 67550, 51905, 82615, 44115 #### [facility] [address] [place] [address], [facility] pH (Bld) 7.49 [pH] High 7.35-7.45 [facility] Comment on above: Result Comment: KINJAL REYNOSO NOTE: Effective 12/02/18, reference ranges for Respiratory GEM analyzers running arterial blood have been updated to reflect the manager card's published reference ranges. Performed By: #### 0 0121, 03686, 54476, 67215, 36033 #### [facility] [address] [place] [address], [facility] BASE EXCESS 1 mmol/L Normal -2-3 [facility] Comment on above: Performed By: #### 0 0121, 13599, 76086, 38646, 79531 #### [facility] [address] [place] [address], [facility] DELIVERY SYSTEMS VENTILATOR Normal [facility] Comment on above: Performed By: #### 0 0121, 27607, 80304, 78492, 71846 #### [facility] [address] [place] [address], [facility] FIO2 40 % Normal [facility] Comment on above: Performed By: #### 0 0121, 13738, 51696, 43145, 79117 #### [facility] [address] [place] [address], [facility] HCO3 (Bld) [Moles/Vol] 24 mmol/L Normal 21-28 [facility] Comment on above: Performed By: #### 0 0121, 65041, 51086, 98637, 68682 #### [facility] [address] [place] [address], [facility] IONIZED CALCIUM 1.07 mmol/L Low 1.13-1.32 [facility] Comment on above: Performed By: #### 0 0121, 83804, 77679, 78676, 85607 #### [facility] [address] [place] [address], [place] MIN VOLUME 15.6 Normal [facility] Comment on above: Performed By: #### 0 0121, 59975, 74793, 78819, 04086 #### [facility] [address] [place] [address], [place] MODALITY Positive Normal [facility] Comment on above: Performed By: #### 0 0121, 45035, 38209, 80642, 92461 #### [facility] [address] [place] [address], [place] Oxygen (Bld) [Partial pressure] 89 mm[Hg] Normal 83-108 [facility] Comment on above: Performed By: #### 0 0121, 50044, 71268, 86017, 46014 #### [facility] [address] [place] [address], [place] Oxygen saturation in Blood 94.7 % Normal 94.0-97.0 [facility] Comment on above: Performed By: #### 0 0121, 70420, 42846, 85063, 78216 #### [facility] [address] [place] [address], [place] PCO2 30 mmHg Low 35-45 [facility] Comment on above: Performed By: #### 0 0121, 10941, 32593, 43954, 48021 #### [facility] [address] [place] [address], [place] PEEP 8.0 CMH20 Normal [facility] Comment on above: Performed By: #### 0 0121, 48456, 06977, 49230, 80309 #### [facility] [address] [place] [address], [place] pH (Bld) 7.51 [pH] High 7.35-7.45 [facility] Comment on above: Result Comment: PLEA SE NOTE: Effective 12/02/18, reference ranges for Respiratory GEM analyzers running arterial blood have been updated to reflect the manager card's published reference ranges. Performed By: #### 0 0121, 64661, 97191, 09319, 30630 #### [facility] [address] [place] [address], [facility] PRESSURE SUPPORT 10 Normal [facility] Comment on above: Performed By: #### 0 0121, 90489, 68261, 30634, 01793 #### [facility] [address] [place] [address], [facility] BASE EXCESS 0 mmol/L Normal -2-3 [facility] Comment on above: Performed By: #### 0 0121, 64324, 54249, 52624, 10531 #### [facility] [address] [place] [address], [facility] DELIVERY SYSTEMS MV Normal [facility] Comment on above: Performed By: #### 0 0121, 90394, 27224, 14783, 16490 #### [facility] [address] [place] [address], [facility] FIO2 40 % Normal [facility] Comment on above: Performed By: #### 0 0121, 81519, 68100, 91088, 80011 #### [facility] [address] [place] [address], [facility] HCO3 (Bld) [Moles/Vol] 23 mmol/L Normal 21-28 [facility] Comment on above: Performed By: #### 0 0121, 68429, 95798, 72396, 74462 #### [facility] [address] [place] [address], [facility] IONIZED CALCIUM 1.07 mmol/L Low 1.13-1.32 [facility] Comment on above: Performed By: #### 0 0121, 70460, 97338, 61575, 50495 #### [facility] [address] [place] [address], [facility] MIN VOLUME 17.0 Normal [facility] Comment on above: Performed By: #### 0 0121, 16147, 95832, 49103, 08007 #### [facility] [address] [place] [address], [place] MODALITY AC Normal [facility] Comment on above: Performed By: #### 0 0121, 64172, 70364, 80433, 09983 #### [facility] [address] [place] [address], [place] Oxygen (Bld) [Partial pressure] 94 mm[Hg] Normal 83-108 [facility] Comment on above: Performed By: #### 0 0121, 43399, 45556, 23024, 96099 #### [facility] [address] [place] [address], [facility] Oxygen saturation in Blood 95.1 % Normal 94.0-97.0 [facility] Comment on above: Performed By: #### 0 0121, 77473, 71761, 33612, 00264 #### [facility] [address] [facility] [place] [address], [facility] PCO2 30 mmHg Low 35-45 [facility] Comment on above: Performed By: #### 0 0121, 70958, 21168, 27585, 86409 #### [facility] [address] [facility] [place] [address], [place] PEEP 8.0 CMH20 Normal [facility] Comment on above: Performed By: #### 0 0121, 18732, 11214, 19799, 28351 #### [facility] [address] [place] [address], [place] pH (Bld) 7.49 [pH] High 7.35-7.45 [facility] Comment on above: Result Comment: KINJAL REYNOSO NOTE: Effective 12/02/18, reference ranges for Respiratory GEM analyzers running arterial blood have been updated to reflect the manager card's published reference ranges. Performed By: #### 0 0121, 34880, 20466, 69540, 05007 #### [facility] [address] [place] [address], [facility] TIDAL VOLUME (VT) CC 700 cc Normal [facility] Comment on above: Performed By: #### 0 0121, 09471, 97745, 90972, 58996 #### [facility] [address] [place] [address], [facility] BASE EXCESS 0 mmol/L Normal -2-3 [facility] Comment on above: Performed By: #### 0 0121, 15641, 25769, 16541, 18707 #### [facility] [address] [place] [address], [facility] DELIVERY SYSTEMS MV Normal [facility] Comment on above: Performed By: #### 0 0121, 67719, 38592, 19632, 67355 #### [facility] [address] [place] [address], [facility] FIO2 50 % Normal [facility] Comment on above: Performed By: #### 0 0121, 34654, 40931, 99612, 71624 #### [facility] [address] [place] [address], [facility] HCO3 (Bld) [Moles/Vol] 23 mmol/L Normal 21-28 [facility] Comment on above: Performed By: #### 0 0121, 28853, 78286, 38130, 01343 #### [facility] [address] [place] [address], [place] IONIZED CALCIUM 1.14 mmol/L Normal 1.13-1.32 [facility] Comment on above: Performed By: #### 0 0121, 33016, 40200, 10124, 15140 #### [facility] [address] [place] [address], [place] MIN VOLUME 13.3 Normal [facility] Comment on above: Performed By: #### 0 0121, 57398, 44956, 92256, 92489 #### [facility] [address] [place] [address], [place] MODALITY AC Normal [facility] Comment on above: Performed By: #### 0 0121, 40487, 09626, 20725, 32616 #### [facility] [address] [place] [address], [place] Oxygen (Bld) [Partial pressure] 71 mm[Hg] Low 83-108 [facility] Comment on above: Performed By: #### 0 0121, 44905, 76380, 12849, 76806 #### [facility] [address] [place] [address], [place] Oxygen saturation in Blood 92.6 % Low 94.0-97.0 [facility] Comment on above: Performed By: #### 0 0121, 65956, 59899, 25995, 04630 #### [facility] [address] [place] [address], [place] PCO2 31 mmHg Low 35-45 [facility] Comment on above: Performed By: #### 0 0121, 87420, 85835, 62166, 95948 #### [facility] [address] [place] [address], [place] PEEP 8.0 CMH20 Normal [facility] Comment on above: Performed By: #### 0 0121, 94372, 62307, 79529, 29385 #### [facility] [address] [place] [address], [place] PF RATIO 142 mmHg Normal [facility] Comment on above: Performed By: #### 0 0121, 28522, 41782, 46201, 68255 #### [facility] [address] [place] [address], [place] pH (Bld) 7.47 [pH] High 7.35-7.45 [facility] Comment on above: Result Comment: KINJAL REYNOSO NOTE: Effective 12/02/18, reference ranges for Respiratory GEM analyzers running arterial blood have been updated to reflect the manager card's published reference ranges. Performed By: #### 0 0121, 71494, 16753, 07572, 29222 #### [facility] [address] [place] [address], [facility] TIDAL VOLUME (VT) CC 700 cc Normal [facility] Comment on above: Performed By: #### 0 0121, 36707, 32912, 13019, 38505 #### [facility] [address] [place] [address], [facility] BASIC METABOLIC PANELon 06-2 Calcium [Mass/Vol] 8.6 mg/dL Normal 8.6-10.3 [facility] Comment on above: Order Comment: << On admission If not done in ED>> No: Do not add to previous draw Performed By: #### 0 0121, 71678, 19719, 92174, 43584 #### [facility] [address] [place] [address], [place] Chloride [Moles/Vol] 104 mmol/L Normal 98-107 [facility] Comment on above: Order Comment: << On admission If not done in ED>> No: Do not add to previous draw Performed By: #### 0 0121, 63696, 91312, 48701, 25521 #### [facility] [address] [place] [address], [place] CO2 [Moles/Vol] 26 mmol/L Normal 21-31 [facility] Comment on above: Order Comment: << On admission If not done in ED>> No: Do not add to previous draw Performed By: #### 0 0121, 77688, 07503, 02373, 86197 #### [facility] [address] [place] [address], [facility] [facility] Creatinine [Mass/Vol] 1.48 mg/dL High 0.70-1.30 [facility] Comment on above: Order Comment: << On admission If not done in ED>> No: Do not add to previous draw Performed By: #### 0 0121, 85269, 54167, 58748, 17296 #### [facility] [address] [place] [address], [facility] GFR/1.73 sq M predicted among blacks MDRD (S/P/Bld) [Vol rate/Area] 60 ml/min/1.73sq m Abnormal >60 [facility] Comment on above: Order Comment: << On admission If not done in ED>> No: Do not add to previous draw Performed By: #### 0 0121, 91932, 17095, 24034, 88330 #### [facility] [address] [facility] [place] [place] [address], [facility] GFR/1.73 sq M predicted among non-blacks MDRD (S/P/Bld) [Vol rate/Area] 50 ml/min/1.73sq m Abnormal >60 [facility] Comment on above: Order Comment: << On admission If not done in ED>> No: Do not add to previous draw Performed By: #### 0 0121, 53127, 59821, 72250, 71977 #### [facility] [address] [place] [address], [facility] Glucose [Mass/Vol] 115 mg/dL High 70-100 [facility] Comment on above: Order Comment: << On admission If not done in ED>> No: Do not add to previous draw Performed By: #### 0 0121, 63372, 98437, 12062, 76422 #### [facility] [address] [place] [address], [facility] Potassium [Moles/Vol] 3.4 mmol/L Low 3.5-5.1 [facility] Comment on above: Order Comment: << On admission If not done in ED>> No: Do not add to previous draw Performed By: #### 0 0121, 15346, 75580, 07313, 67128 #### [facility] [address] [place] [address], [place] Sodium [Moles/Vol] 138 mmol/L Normal 136-145 [facility] Comment on above: Order Comment: << On admission If not done in ED>> No: Do not add to previous draw Performed By: #### 0 0121, 39944, 08403, 73884, 40759 #### [facility] [address] [place] [address], [place] Urea nitrogen [Mass/Vol] 23 mg/dL Normal 7-25 [facility] Comment on above: Order Comment: << On admission If not done in ED>> No: Do not add to previous draw Performed By: #### 0 0121, 21339, 31488, 68193, 05965 #### [facility] [address] [place] [address], [place] Calcium [Mass/Vol] 8.1 mg/dL Low 8.6-10.3 [facility] Comment on above: Order Comment: << On admission If not done in ED>> No: Do not add to previous draw Performed By: #### 0 0121, 72957, 57812, 10448, 94781 #### [facility] [address] [place] [address], [place] Chloride [Moles/Vol] 105 mmol/L Normal 98-107 [facility] Comment on above: Order Comment: << On admission If not done in ED>> No: Do not add to previous draw Performed By: #### 0 0121, 79498, 21274, 58814, 05698 #### [facility] [address] [place] [address], [place] CO2 [Moles/Vol] 26 mmol/L Normal 21-31 [facility] Comment on above: Order Comment: << On admission If not done in ED>> No: Do not add to previous draw Performed By: #### 0 0121, 56180, 99056, 30319, 46316 #### [facility] [address] [place] [address], [facility] Creatinine [Mass/Vol] 1.37 mg/dL High 0.70-1.30 [facility] Comment on above: Order Comment: << On admission If not done in ED>> No: Do not add to previous draw Performed By: #### 0 0121, 87282, 66890, 56934, 02241 #### [facility] [address] [place] [address], [facility] GFR/1.73 sq M predicted among blacks MDRD (S/P/Bld) [Vol rate/Area] mL/min/{1.73_m2} Normal >60 [facility] Comment on above: Order Comment: << On admission If not done in ED>> No: Do not add to previous draw Performed By: #### 0 0121, 24226, 20137, 21699, 21496 #### [facility] [address] [place] [address], [facility] GFR/1.73 sq M predicted among non-blacks MDRD (S/P/Bld) [Vol rate/Area] 54 ml/min/1.73sq m Abnormal >60 [facility] Comment on above: Order Comment: << On admission If not done in ED>> No: Do not add to previous draw Performed By: #### 0 0121, 55672, 65816, 08376, 64601 #### [facility] [address] [place] [address], [place] Glucose [Mass/Vol] 113 mg/dL High 70-100 [facility] Comment on above: Order Comment: << On admission If not done in ED>> No: Do not add to previous draw Performed By: #### 0 0121, 09408, 70355, 31960, 10899 #### [facility] [address] [place] [address], [place] Potassium [Moles/Vol] 3.3 mmol/L Low 3.5-5.1 [facility] Comment on above: Order Comment: << On admission If not done in ED>> No: Do not add to previous draw Performed By: #### 0 0121, 21583, 16229, 03935, 20874 #### [facility] [address] [place] [address], [place] Sodium [Moles/Vol] 138 mmol/L Normal 136-145 [facility] Comment on above: Order Comment: << On admission If not done in ED>> No: Do not add to previous draw Performed By: #### 0 0121, 70168, 45697, 37832, 09158 #### [facility] [address] [place] [address], [facility] Urea nitrogen [Mass/Vol] 19 mg/dL Normal 7-25 [facility] Comment on above: Order Comment: << On admission If not done in ED>> No: Do not add to previous draw Performed By: #### 0 0121, 48179, 71671, 85792, 64022 #### [facility] [address] [place] [address], [place] Calcium [Mass/Vol] 7.4 mg/dL Low 8.6-10.3 [facility] Comment on above: Order Comment: << On admission If not done in ED>> No: Do not add to previous draw Performed By: #### 0 0121, 03321, 22264, 35177, 31329 #### [facility] [address] [place] [address], [place] Chloride [Moles/Vol] 109 mmol/L High 98-107 [facility] Comment on above: Order Comment: << On admission If not done in ED>> No: Do not add to previous draw Performed By: #### 0 0121, 40988, 72046, 91160, 56514 #### [facility] [address] [place] [address], [facility] CO2 [Moles/Vol] 21 mmol/L Normal 21-31 [facility] Comment on above: Order Comment: << On admission If not done in ED>> No: Do not add to previous draw Performed By: #### 0 0121, 35321, 39695, 66844, 68100 #### [facility] [address] [place] [address], [facility] Creatinine [Mass/Vol] 1.22 mg/dL Normal 0.70-1.30 [facility] Comment on above: Order Comment: << On admission If not done in ED>> No: Do not add to previous draw Performed By: #### 0 0121, 97523, 01498, 16782, 88327 #### [facility] [address] [place] [address], [facility] GFR/1.73 sq M predicted among blacks MDRD (S/P/Bld) [Vol rate/Area] mL/min/{1.73_m2} Normal >60 [facility] Comment on above: Order Comment: << On admission If not done in ED>> No: Do not add to previous draw Performed By: #### 0 0121, 02540, 48732, 41089, 47230 #### [facility] [address] [place] [address], [facility] GFR/1.73 sq M predicted among non-blacks MDRD (S/P/Bld) [Vol rate/Area] mL/min/{1.73_m2} Normal >60 [facility] Comment on above: Order Comment: << On admission If not done in ED>> No: Do not add to previous draw Performed By: #### 0 0121, 11457, 34700, 40586, 42097 #### [facility] [address] [place] [address], [facility] Glucose [Mass/Vol] 129 mg/dL High 70-100 [facility] Comment on above: Order Comment: << On admission If not done in ED>> No: Do not add to previous draw Performed By: #### 0 0121, 77669, 15870, 40700, 46454 #### [facility] [address] [place] [address], [facility] Potassium [Moles/Vol] 3.1 mmol/L Low 3.5-5.1 [facility] Comment on above: Order Comment: << On admission If not done in ED>> No: Do not add to previous draw Performed By: #### 0 0121, 51700, 67472, 71459, 60747 #### [facility] [address] [place] [address], [facility] Sodium [Moles/Vol] 139 mmol/L Normal 136-145 [facility] Comment on above: Order Comment: << On admission If not done in ED>> No: Do not add to previous draw Performed By: #### 0 0121, 04343, 65572, 75321, 85729 #### [facility] [address] [place] [address], [facility] Urea nitrogen [Mass/Vol] 17 mg/dL Normal 7-25 [facility] Comment on above: Order Comment: << On admission If not done in ED>> No: Do not add to previous draw Performed By: #### 0 0121, 98106, 94854, 35304, 06700 #### [facility] [address] [place] [address], [facility] CBC COMPLETE BLOOD COUNTon 0 - Erythrocyte distribution width (RBC) [Ratio] 13.5 % Normal 11.5-15.0 [facility] Comment on above: Order Comment: << On admission If not done in ED>> No: Do not add to previous draw Performed By: #### 0 0121, 68416, 63943, 35332, 77430 #### [facility] [address] [place] [address], [facility] Hematocrit (Bld) [Volume fraction] 33.7 % Low 39.0-50.0 [facility] Comment on above: Order Comment: << On admission If not done in ED>> No: Do not add to previous draw Performed By: #### 0 0121, 13766, 65275, 64547, 01180 #### [facility] [address] [place] [address], [facility] Hemoglobin (Bld) [Mass/Vol] 10.9 g/dL Low 13.0-17.0 [facility] Comment on above: Order Comment: << On admission If not done in ED>> No: Do not add to previous draw Performed By: #### 0 0121, 61606, 51298, 49899, 85722 #### [facility] [address] [facility] [place] [address], [facility] MCH (RBC) [Entitic mass] 29.3 pg Normal 27.0-33.0 [facility] Comment on above: Order Comment: << On admission If not done in ED>> No: Do not add to previous draw Performed By: #### 0 0121, 24780, 54740, 49239, 38457 #### [facility] [address] [place] [address], [facility] MCHC (RBC) [Mass/Vol] 32.3 g/dL Normal 32.0-35.0 [facility] Comment on above: Order Comment: << On admission If not done in ED>> No: Do not add to previous draw Performed By: #### 0 0121, 62468, 66936, 34822, 19695 #### [facility] [address] [place] [address], [facility] MCV (RBC) [Entitic vol] 90.6 fL Normal 82.0-98.0 [facility] Comment on above: Order Comment: << On admission If not done in ED>> No: Do not add to previous draw Performed By: #### 0 0121, 18188, 84873, 39614, 15485 #### [facility] [address] [facility] [place] [address], [facility] Nucleated RBC/100 WBC (Bld) [Ratio] 0 % Normal 0-0 [facility] Comment on above: Order Comment: << On admission If not done in ED>> No: Do not add to previous draw Performed By: #### 0 0121, 06275, 95268, 89802, 79330 #### [facility] [address] [place] [address], [facility] PLAT CNT 100 10*3/uL Low 150-400 [facility] Comment on above: Order Comment: << On admission If not done in ED>> No: Do not add to previous draw Performed By: #### 0 0121, 46340, 59852, 78926, 68511 #### [facility] [address] [place] [address], [facility] RBC (Bld) [#/Vol] 3.72 10*6/uL Low 4.20-5.70 [facility] Comment on above: Order Comment: << On admission If not done in ED>> No: Do not add to previous draw Performed By: #### 0 0121, 24604, 22629, 38561, 63687 #### [facility] [address] [facility] [place] [address], [facility] WBC (Bld) [#/Vol] 17.24 10*3/uL High 4.00-10.60 [facility] Comment on above: Order Comment: << On admission If not done in ED>> No: Do not add to previous draw Performed By: #### 0 0121, 06891, 96287, 20825, 80800 #### [facility] [address] [place] [address], [facility] Erythrocyte distribution width (RBC) [Ratio] 13.5 % Normal 11.5-15.0 [facility] Comment on above: Order Comment: << On admission If not done in ED>> No: Do not add to previous draw Performed By: #### 0 0121, 98210, 84631, 31807, 10563 #### [facility] [address] [place] [address], [facility] Hematocrit (Bld) [Volume fraction] 35.2 % Low 39.0-50.0 [facility] Comment on above: Order Comment: << On admission If not done in ED>> No: Do not add to previous draw Performed By: #### 0 0121, 68425, 37490, 32850, 00857 #### [facility] [address] [place] [address], [facility] Hemoglobin (Bld) [Mass/Vol] 11.5 g/dL Low 13.0-17.0 [facility] Comment on above: Order Comment: << On admission If not done in ED>> No: Do not add to previous draw Performed By: #### 0 0121, 86188, 23144, 37548, 87383 #### [facility] [address] [place] [address], [facility] IMM PLATELET FRAC 4.3 % Normal 0.8-6.3 [facility] Comment on above: Order Comment: << On admission If not done in ED>> No: Do not add to previous draw Performed By: #### 0 0121, 14437, 26355, 46751, 84857 #### [facility] [address] [place] [address], [facility] MCH (RBC) [Entitic mass] 29.4 pg Normal 27.0-33.0 [facility] Comment on above: Order Comment: << On admission If not done in ED>> No: Do not add to previous draw Performed By: #### 0 0121, 24605, 47807, 95798, 02558 #### [facility] [address] MCHC (RBC) [Mass/Vol] 32.7 g/dL Normal 32.0-35.0 [facility] Comment on above: Order Comment: << On admission If not done in ED>> No: Do not add to previous draw Performed By: #### 0 0121, 64041, 24388, 87075, 79145 #### [facility] [address] [facility] [place] [address], [facility] MCV (RBC) [Entitic vol] 90.0 fL Normal 82.0-98.0 [facility] Comment on above: Order Comment: << On admission If not done in ED>> No: Do not add to previous draw Performed By: #### 0 0121, 51528, 07079, 79026, 88034 #### [facility] [address] Nucleated RBC/100 WBC (Bld) [Ratio] 0 % Normal 0-0 [facility] Comment on above: Order Comment: << On admission If not done in ED>> No: Do not add to previous draw Performed By: #### 0 0121, 67267, 17869, 69245, 18942 #### [facility] [address] [facility] [place] [address], [facility] PLAT CNT 99 10*3/uL Low 150-400 [facility] Comment on above: Order Comment: << On admission If not done in ED>> No: Do not add to previous draw Performed By: #### 0 0121, 77818, 15433, 93938, 43661 #### [facility] [address] [facility] [place] [address], [facility] RBC (Bld) [#/Vol] 3.91 10*6/uL Low 4.20-5.70 [facility] Comment on above: Order Comment: << On admission If not done in ED>> No: Do not add to previous draw Performed By: #### 0 0121, 84257, 41438, 98149, 79526 #### [facility] [address] [place] [address], [facility] WBC (Bld) [#/Vol] 19.55 10*3/uL High 4.00-10.60 [facility] Comment on above: Order Comment: << On admission If not done in ED>> No: Do not add to previous draw Performed By: #### 0 0121, 74736, 48738, 67249, 76778 #### [facility] [address] [place] [address], [facility] Erythrocyte distribution width (RBC) [Ratio] 13.5 % Normal 11.5-15.0 [facility] Comment on above: Order Comment: << On admission If not done in ED>> No: Do not add to previous draw Performed By: #### 0 0121, 26011, 17583, 65521, 05914 #### [facility] [address] [place] [address], [facility] Hematocrit (Bld) [Volume fraction] 38.1 % Low 39.0-50.0 [facility] Comment on above: Order Comment: << On admission If not done in ED>> No: Do not add to previous draw Performed By: #### 0 0121, 16334, 74035, 06880, 71868 #### [facility] [address] [place] [address], [facility] Hemoglobin (Bld) [Mass/Vol] 12.2 g/dL Low 13.0-17.0 [facility] Comment on above: Order Comment: << On admission If not done in ED>> No: Do not add to previous draw Performed By: #### 0 0121, 07282, 63473, 22353, 81579 #### [facility] [address] [place] [address], [facility] IMM PLATELET FRAC 3.8 % Normal 0.8-6.3 [facility] Comment on above: Order Comment: << On admission If not done in ED>> No: Do not add to previous draw Performed By: #### 0 0121, 55385, 99217, 61803, 55432 #### [facility] [address] [facility] [address] MCH (RBC) [Entitic mass] 29.0 pg Normal 27.0-33.0 [facility] Comment on above: Order Comment: << On admission If not done in ED>> No: Do not add to previous draw Performed By: #### 0 0121, 41404, 18023, 40898, 41220 #### [facility] [address] MCHC (RBC) [Mass/Vol] 32.0 g/dL Normal 32.0-35.0 [facility] Comment on above: Order Comment: << On admission If not done in ED>> No: Do not add to previous draw Performed By: #### 0 0121, 89519, 00962, 52083, 50189 #### [facility] [address] MCV (RBC) [Entitic vol] 90.7 fL Normal 82.0-98.0 [facility] Comment on above: Order Comment: << On admission If not done in ED>> No: Do not add to previous draw Performed By: #### 0 0121, 80185, 25644, 09355, 92778 #### [facility] [address] [facility] [address] Nucleated RBC/100 WBC (Bld) [Ratio] 0 % Normal 0-0 [facility] Comment on above: Order Comment: << On admission If not done in ED>> No: Do not add to previous draw Performed By: #### 0 0121, 34906, 37954, 34744, 47876 #### [facility] [address] [place] [address], [facility] PLAT CNT 112 10*3/uL Low 150-400 [facility] Comment on above: Order Comment: << On admission If not done in ED>> No: Do not add to previous draw Performed By: #### 0 0121, 50402, 80187, 45621, 99883 #### [facility] [address] [place] [address], [facility] RBC (Bld) [#/Vol] 4.20 10*6/uL Normal 4.20-5.70 [facility] Comment on above: Order Comment: << On admission If not done in ED>> No: Do not add to previous draw Performed By: #### 0 0121, 30999, 29517, 69797, 19680 #### [facility] [address] [place] [address], [facility] WBC (Bld) [#/Vol] 21.05 10*3/uL High 4.00-10.60 [facility] Comment on above: Order Comment: << On admission If not done in ED>> No: Do not add to previous draw Performed By: #### 0 0121, 08774, 44918, 10990, 41302 #### [facility] [address] [place] [address], [facility] COOXIMETRYon 03-21-2019 COHB 1 % Normal [facility] Comment on above: Performed By: #### 0 0121, 68743, 96612, 31462, 92264 #### [facility] [address] [place] [address], [facility] METHB 1 % Normal [facility] Comment on above: Performed By: #### 0 0121, 23810, 76075, 52845, 86461 #### [facility] [address] [place] [address], [facility] Oxygen saturation in Blood 59.8 % Low 65.0-75.0 [facility] Comment on above: Performed By: #### 0 0121, 85184, 92799, 08089, 01508 #### [facility] [address] [place] [address], [place] THB 10.9 g/dL Normal [facility] Comment on above: Performed By: #### 0 0121, 74690, 47377, 83425, 28237 #### [facility] [address] [place] [address], [place] COHB 2 % Normal [facility] Comment on above: Performed By: #### 0 0121, 36920, 48256, 52665, 97699 #### [facility] [address] [place] [address], [place] METHB 1 % Normal [facility] Comment on above: Performed By: #### 0 0121, 62695, 22682, 35779, 91764 #### [facility] [address] [place] [address], [place] Oxygen saturation in Blood 70.2 % Normal 65.0-75.0 [facility] Comment on above: Performed By: #### 0 0121, 58422, 86947, 27969, 40001 #### [facility] [address] [place] [address], [place] THB 11.5 g/dL Normal [facility] Comment on above: Performed By: #### 0 0121, 42960, 36466, 65052, 99732 #### [facility] [address] [place] [address], [place] MAGNESIUM BLOODon 03-21-2019 Magnesium [Mass/Vol] 2.1 mg/dL Normal 1.9-2.7 [facility] Comment on above: Order Comment: << On admission If not done in ED>> No: Do not add to previous draw Performed By: #### 0 0121, 87867, 52787, 19675, 34962 #### [facility] [address] [place] [address], [place] Magnesium [Mass/Vol] 2.1 mg/dL Normal 1.9-2.7 [facility] Comment on above: Order Comment: << On admission If not done in ED>> No: Do not add to previous draw Performed By: #### 0 0121, 47550, 51291, 46865, 84784 #### [facility] [address] [place] [address], [place] Magnesium [Mass/Vol] 2.2 mg/dL Normal 1.9-2.7 [facility] Comment on above: Order Comment: << On admission If not done in ED>> No: Do not add to previous draw Performed By: #### 0 0121, 97167, 47456, 99964, 29881 #### [facility] [facility] [address] [place] [address], [place] POC GLUCOSE LABon 03-21-2019 Glucose [Mass/Vol] 107 mg/dL High 70-100 [facility] Comment on above: Performed By: #### 0 0121, 60643, 39033, 34116, 96148 #### [facility] [address] [place] [address], [place] Glucose [Mass/Vol] 103 mg/dL High 70-100 [facility] Comment on above: Performed By: #### 0 0121, 19831, 66306, 02909, 54501 #### [facility] [address] [place] [address], [place] Glucose [Mass/Vol] 112 mg/dL High 70-100 [facility] Comment on above: Performed By: #### 0 0121, 39938, 33735, 19303, 90751 #### [facility] [address] [place] [address], [place] Glucose [Mass/Vol] 127 mg/dL High 70-100 [facility] Comment on above: Performed By: #### 0 0121, 06081, 17719, 77621, 97397 #### [facility] [address] [place] [address], [place] Glucose [Mass/Vol] 95 mg/dL Normal 70-100 [facility] Comment on above: Performed By: #### 0 0121, 90361, 52341, 25479, 06866 #### [facility] [address] [place] [address], [place] Glucose [Mass/Vol] 104 mg/dL High 70-100 [facility] Comment on above: Performed By: #### 0 0121, 45045, 16491, 63240, 55809 #### [facility] [address] [place] [address], [place] Glucose [Mass/Vol] 98 mg/dL Normal 70-100 [facility] Comment on above: Performed By: #### 0 0121, 42729, 03375, 23779, 83249 #### [facility] [address] [place] [address], [place] Glucose [Mass/Vol] 113 mg/dL High 70-100 [facility] Comment on above: Performed By: #### 0 0121, 05556, 93183, 85326, 19246 #### [facility] [address] [place] [address], [place] Glucose [Mass/Vol] 130 mg/dL High 70-100 [facility] Comment on above: Performed By: #### 0 0121, 20845, 94007, 10009, 07990 #### [facility] [address] [place] [address], [place] Glucose [Mass/Vol] 130 mg/dL High 70-100 [facility] Comment on above: Performed By: #### 0 0121, 25945, 95249, 74127, 59800 #### [facility] [address] [place] [address], [place] Glucose [Mass/Vol] 129 mg/dL High 70-100 [facility] Comment on above: Performed By: #### 0 0121, 90153, 81594, 71920, 78974 #### [facility] [address] [facility] [place] [address], [place] Glucose [Mass/Vol] 108 mg/dL High 70-100 [facility] Comment on above: Performed By: #### 0 0121, 78897, 03822, 03898, 50289 #### [facility] [address] [place] [address], [place] Glucose [Mass/Vol] 101 mg/dL High 70-100 [facility] Comment on above: Performed By: #### 0 0121, 52801, 63405, 14583, 21031 #### [facility] [address] [facility] [address], [facility] PORTABLE CHEST 1 VIEWon 03-01 PORTABLE CHEST 1 VIEW [facility] Department of Radiology [address] [place] [id number] ======== Patient Name: TRACIE CRAIN : 1965 Sex: M Age: Race: NA Pt. Location: [id number] Patient Status: I Ordered Date: 03/21/2019 5:00:00 [...] of field of view, in satisfactory position. [place]-Sher catheter is again seen with tip projecting [...] findings. Electronically signed by:Yenni Osuna. Transcribed by: [email or web address], User Resident: CYNTHIA FINLEY Electronically Signed by: YENNI OSUNA @ 03/22/2019 01:07 PM I personally read this/these film(s) with this resident Normal [facility] Comment on above: Order Comment: << On admission If not done in ED>> No: Do not add to previous draw ARTERIAL BLOOD GAS WITH ICAo n 03-20-2019 BASE EXCESS -4 mmol/L Low -2-3 The [facility] Comment on above: Performed By: #### 0 0121, 13474, 35300, 32930, 63465 #### [facility] [address] DELIVERY [employer]S VENTILATOR Normal The [facility] Comment on above: Performed By: #### 0 0121, 68611, 67926, 32552, 09442 #### [facility] [address] [place] [address], [facility] FIO2 50 % Normal [facility] Comment on above: Performed By: #### 0 0121, 36237, 14322, 63417, 25727 #### [facility] [address] [place] [address], [facility] HCO3 (Bld) [Moles/Vol] 19 mmol/L Low 21-28 The [facility] Comment on above: Performed By: #### 0 0121, 17341, 85154, 35326, 65934 #### [facility] [address] [facility] [place] [place] [address], [facility] IONIZED CALCIUM 1.06 mmol/L Low 1.13-1.32 The [facility] Comment on above: Performed By: #### 0 0121, 50724, 95802, 28506, 77801 #### [facility] [address] [facility] [place] [address], [facility] MIN VOLUME 14.2 Normal [facility] Comment on above: Performed By: #### 0 0121, 30231, 50634, 56604, 50658 #### [facility] [address] [facility] [place] [id number], [facility] MODALITY AC-ASSIST CONTROL Normal [facility] Comment on above: Performed By: #### 0 0121, 43542, 44775, 20248, 81438 #### [facility] [address] [place] [address], [facility] Oxygen (Bld) [Partial pressure] 82 mm[Hg] Low 83-108 [facility] Comment on above: Performed By: #### 0 0121, 75280, 00861, 18764, 62802 #### [facility] [address] [place] [address], [facility] Oxygen saturation in Blood 94.4 % Normal 94.0-97.0 [facility] Comment on above: Performed By: #### 0 0121, 05237, 02364, 44725, 42561 #### [facility] [address] [place] [address], [place] PCO2 27 mmHg Low 35-45 The [facility] Comment on above: Performed By: #### 0 0121, 55850, 83232, 76676, 75927 #### [facility] [address] [place] [address], [place] PEEP 8.0 CMH20 Normal [facility] Comment on above: Performed By: #### 0 0121, 77585, 02274, 57638, 03182 #### [facility] [address] [place] [address], [facility] pH (Bld) 7.45 [pH] Normal 7.35-7.45 [facility] Comment on above: Result Comment: KINJAL REYNOSO NOTE: Effective 12/02/18, reference ranges for Respiratory GEM analyzers running arterial blood have been updated to reflect the manager card's published reference ranges. Performed By: #### 0 0121, 09524, 14918, 54446, 16751 #### [facility] [address] [place] [address], [facility] TIDAL VOLUME (VT) CC 700 cc Normal [facility] Comment on above: Performed By: #### 0 0121, 70387, 08680, 78861, 87173 #### [facility] [address] [place] [address], [place] BASE EXCESS -2 mmol/L Normal -2-3 [facility] Comment on above: Performed By: #### 0 0121, 46540, 76377, 20127, 52944 #### [facility] [address] DELIVERY SYSTEMS MV Normal [facility] Comment on above: Performed By: #### 0 0121, 18897, 37608, 15374, 28247 #### [facility] [address] [facility] [place] [address], [facility] FIO2 100 % Normal [facility] Comment on above: Performed By: #### 0 0121, 83095, 93907, 75549, 91090 #### [facility] [address] [facility] [place] [place] [address], [facility] HCO3 (Bld) [Moles/Vol] 22 mmol/L Normal 21-28 The [facility] Comment on above: Performed By: #### 0 0121, 31646, 59760, 41777, 37947 #### [facility] [address] IONIZED CALCIUM 1.18 mmol/L Normal 1.13-1.32 [facility] Comment on above: Performed By: #### 0 0121, 63372, 99567, 02300, 82103 #### [facility] [address] [facility] [place] [address], [facility] MIN VOLUME 13.0 Normal [facility] Comment on above: Performed By: #### 0 0121, 99358, 93083, 36608, 59753 #### [facility] [address] [facility] [place] [address], [facility] MODALITY AC Normal [facility] Comment on above: Performed By: #### 0 0121, 41658, 35569, 53753, 65616 #### [facility] [address] [facility] [place] [address], [facility] Oxygen (Bld) [Partial pressure] 109 mm[Hg] Critically high 83-108 [facility] Comment on above: Performed By: #### 0 0121, 75180, 69040, 78561, 73496 #### [facility] [address] [place] [address], [facility] Oxygen saturation in Blood 95.6 % Normal 94.0-97.0 The [facility] Comment on above: Performed By: #### 0 0121, 60837, 30495, 79718, 33093 #### [facility] [address] [place] [address], [place] PCO2 33 mmHg Low 35-45 [facility] Comment on above: Performed By: #### 0 0121, 30803, 03070, 01361, 21327 #### [facility] [address] [place] [address], [facility] PEEP 10.0 CMH20 Normal [facility] Comment on above: Performed By: #### 0 0121, 27070, 62581, 40138, 19982 #### [facility] [address] [place] [address], [facility] PF RATIO 109 mmHg Normal [facility] Comment on above: Performed By: #### 0 0121, 89524, 17157, 91985, 57298 #### [facility] [address] [place] [address], [facility] pH (Bld) 7.43 [pH] Normal 7.35-7.45 [facility] Comment on above: Result Comment: PLEA SE NOTE: Effective 12/02/18, reference ranges for Respiratory GEM analyzers running arterial blood have been updated to reflect the manager card's published reference ranges. Performed By: #### 0 0121, 50198, 65021, 39995, 14956 #### [facility] [address] [place] [address], [facility] TIDAL VOLUME (VT) CC 700 cc Normal [facility] Comment on above: Performed By: #### 0 0121, 48637, 62516, 13035, 95924 #### [facility] [address] [place] [address], [place] BASE EXCESS -4 mmol/L Low -2-3 [facility] Comment on above: Performed By: #### 0 0121, 17598, 90065, 95771, 87640 #### [facility] [address] [place] [address], [facility] DELIVERY SYSTEMS VENTILATOR Normal [facility] Comment on above: Performed By: #### 0 0121, 17676, 87402, 94064, 56344 #### [facility] [address] [place] [address], [facility] FIO2 100 % Normal [facility] Comment on above: Performed By: #### 0 0121, 93788, 34335, 12650, 83510 #### [facility] [address] [place] [address], [facility] HCO3 (Bld) [Moles/Vol] 20 mmol/L Low 21-28 [facility] Comment on above: Performed By: #### 0 0121, 01059, 89617, 99119, 69379 #### [facility] [address] [place] [address], [facility] IONIZED CALCIUM 1.23 mmol/L Normal 1.13-1.32 [facility] Comment on above: Performed By: #### 0 0121, 38132, 87042, 68593, 60558 #### [facility] [address] [place] [address], [facility] MIN VOLUME 15.1 Normal [facility] Comment on above: Performed By: #### 0 0121, 31432, 36590, 00825, 02647 #### [facility] [address] [place] [address], [facility] MODALITY AC-ASSIST CONTROL Normal [facility] Comment on above: Performed By: #### 0 0121, 56700, 24255, 47746, 27542 #### [facility] [address] [place] [address], [facility] Oxygen (Bld) [Partial pressure] 90 mm[Hg] Normal 83-108 [facility] Comment on above: Performed By: #### 0 0121, 32397, 37511, 13289, 78939 #### [facility] [address] [place] [address], [place] Oxygen saturation in Blood 95.1 % Normal 94.0-97.0 [facility] Comment on above: Performed By: #### 0 0121, 07321, 16632, 58443, 41467 #### [facility] [address] [place] [address], [place] PCO2 32 mmHg Low 35-45 [facility] Comment on above: Performed By: #### 0 0121, 98737, 64247, 84864, 01785 #### [facility] [address] [place] [address], [place] PEEP 10.0 CMH20 Normal [facility] Comment on above: Performed By: #### 0 0121, 10352, 34537, 97452, 29770 #### [facility] [address] [place] [address], [place] PF RATIO 900 mmHg Normal [facility] Comment on above: Performed By: #### 0 0121, 29398, 05451, 17626, 85975 #### [facility] [address] [place] [address], [place] pH (Bld) 7.40 [pH] Normal 7.35-7.45 [facility] Comment on above: Result Comment: KINJAL REYNOSO NOTE: Effective 12/02/18, reference ranges for Respiratory GEM analyzers running arterial blood have been updated to reflect the manager card's published reference ranges. Performed By: #### 0 0121, 82522, 08526, 69669, 12081 #### [facility] [address] [place] [address], [place] TIDAL VOLUME (VT) CC 700 cc Normal [facility] Comment on above: Performed By: #### 0 0121, 13834, 71147, 50138, 29556 #### [facility] [address] [place] [address], [facility] BASIC METABOLIC PANELon 06-2 Calcium [Mass/Vol] 8.1 mg/dL Low 8.6-10.3 [facility] Comment on above: Order Comment: << On admission If not done in ED>> No: Do not add to previous draw Performed By: #### 0 0121, 36482, 97515, 26967, 16725 #### [facility] [address] [place] [address], [facility] Chloride [Moles/Vol] 112 mmol/L High 98-107 [facility] Comment on above: Order Comment: << On admission If not done in ED>> No: Do not add to previous draw Performed By: #### 0 0121, 86164, 76250, 24346, 58334 #### [facility] [address] [place] [address], [facility] CO2 [Moles/Vol] 24 mmol/L Normal 21-31 [facility] Comment on above: Order Comment: << On admission If not done in ED>> No: Do not add to previous draw Performed By: #### 0 0121, 71129, 27098, 24524, 23677 #### [facility] [address] [place] [address], [facility] Creatinine [Mass/Vol] 0.97 mg/dL Normal 0.70-1.30 [facility] Comment on above: Order Comment: << On admission If not done in ED>> No: Do not add to previous draw Performed By: #### 0 0121, 98380, 02419, 00682, 93013 #### [facility] [address] [place] [address], [place] GFR/1.73 sq M predicted among blacks MDRD (S/P/Bld) [Vol rate/Area] mL/min/{1.73_m2} Normal >60 [facility] Comment on above: Order Comment: << On admission If not done in ED>> No: Do not add to previous draw Performed By: #### 0 0121, 00421, 60086, 03555, 68881 #### [facility] [address] [place] [address], [facility] GFR/1.73 sq M predicted among non-blacks MDRD (S/P/Bld) [Vol rate/Area] mL/min/{1.73_m2} Normal >60 [facility] Comment on above: Order Comment: << On admission If not done in ED>> No: Do not add to previous draw Performed By: #### 0 0121, 93451, 75168, 15937, 65027 #### [facility] [address] [place] [address], [place] Glucose [Mass/Vol] 134 mg/dL High 70-100 [facility] Comment on above: Order Comment: << On admission If not done in ED>> No: Do not add to previous draw Performed By: #### 0 0121, 64618, 85820, 21783, 11205 #### [facility] [address] [place] [address], [place] Potassium [Moles/Vol] 3.9 mmol/L Normal 3.5-5.1 [facility] Comment on above: Order Comment: << On admission If not done in ED>> No: Do not add to previous draw Performed By: #### 0 0121, 39775, 94509, 80158, 03853 #### [facility] [address] [place] [address], [place] Sodium [Moles/Vol] 142 mmol/L Normal 136-145 [facility] Comment on above: Order Comment: << On admission If not done in ED>> No: Do not add to previous draw Performed By: #### 0 0121, 43613, 96334, 04347, 06747 #### [facility] [address] [place] [address], [place] Urea nitrogen [Mass/Vol] 16 mg/dL Normal 7-25 [facility] Comment on above: Order Comment: << On admission If not done in ED>> No: Do not add to previous draw Performed By: #### 0 0121, 78183, 29288, 88655, 00590 #### [facility] [address] [place] [address], [place] Chloride [Moles/Vol] 113 mmol/L High 98-107 [facility] Comment on above: Order Comment: << On admission If not done in ED>> No: Do not add to previous draw Performed By: #### 0 0121, 77261, 15309, 34548, 63667 #### [facility] [address] [place] [address], [place] CO2 [Moles/Vol] 23 mmol/L Normal 21-31 [facility] Comment on above: Order Comment: << On admission If not done in ED>> No: Do not add to previous draw Performed By: #### 0 0121, 42927, 67188, 09438, 39387 #### [facility] [address] [place] [address], [place] Creatinine [Mass/Vol] 1.11 mg/dL Normal 0.70-1.30 [facility] Comment on above: Order Comment: << On admission If not done in ED>> No: Do not add to previous draw Performed By: #### 0 0121, 85903, 01178, 61363, 24085 #### [facility] [address] [place] [address], [place] Glucose [Mass/Vol] 157 mg/dL High 70-100 [facility] Comment on above: Order Comment: << On admission If not done in ED>> No: Do not add to previous draw Performed By: #### 0 0121, 84631, 49371, 74281, 99327 #### [facility] [address] [place] [address], [place] Potassium [Moles/Vol] 4.0 mmol/L Normal 3.5-5.1 [facility] Comment on above: Order Comment: << On admission If not done in ED>> No: Do not add to previous draw Performed By: #### 0 0121, 48516, 41604, 66315, 90531 #### [facility] [address] [place] [address], [place] Sodium [Moles/Vol] 143 mmol/L Normal 136-145 [facility] Comment on above: Order Comment: << On admission If not done in ED>> No: Do not add to previous draw Performed By: #### 0 0121, 25533, 95188, 19560, 84321 #### [facility] [address] [place] [address], [place] Urea nitrogen [Mass/Vol] 17 mg/dL Normal 7-25 [facility] Comment on above: Order Comment: << On admission If not done in ED>> No: Do not add to previous draw Performed By: #### 0 0121, 43499, 13161, 10821, 07166 #### [facility] [address] [place] [address], [place] Calcium [Mass/Vol] 8.7 mg/dL Normal 8.6-10.3 [facility] Comment on above: Order Comment: << On admission If not done in ED>> No: Do not add to previous draw Performed By: #### 0 0121, 23865, 78702, 12223, 77166 #### [facility] [address] [place] [address], [place] CO2 [Moles/Vol] 22 mmol/L Normal 21-31 [facility] Comment on above: Order Comment: << On admission If not done in ED>> No: Do not add to previous draw Performed By: #### 0 0121, 61590, 33558, 46592, 46412 #### [facility] [address] [place] [address], [facility] Creatinine [Mass/Vol] 1.00 mg/dL Normal 0.70-1.30 [facility] Comment on above: Order Comment: << On admission If not done in ED>> No: Do not add to previous draw Performed By: #### 0 0121, 67541, 85686, 74719, 11765 #### [facility] [address] [place] [address], [facility] Glucose [Mass/Vol] 126 mg/dL High 70-100 [facility] Comment on above: Order Comment: << On admission If not done in ED>> No: Do not add to previous draw Performed By: #### 0 0121, 11444, 99055, 98086, 52978 #### [facility] [address] [place] [address], [facility] Potassium [Moles/Vol] 4.1 mmol/L Normal 3.5-5.1 [facility] Comment on above: Order Comment: << On admission If not done in ED>> No: Do not add to previous draw Performed By: #### 0 0121, 32760, 53841, 00549, 89734 #### [facility] [address] [place] [address], [facility] CBC COMPLETE BLOOD COUNTon 0 - Erythrocyte distribution width (RBC) [Ratio] 13.2 % Normal 11.5-15.0 [facility] Comment on above: Order Comment: << On admission If not done in ED>> No: Do not add to previous draw Performed By: #### 0 0121, 30102, 65346, 27368, 42679 #### [facility] [address] [place] [address], [facility] Hematocrit (Bld) [Volume fraction] 39.8 % Normal 39.0-50.0 [facility] Comment on above: Order Comment: << On admission If not done in ED>> No: Do not add to previous draw Performed By: #### 0 0121, 44062, 51350, 58405, 18669 #### [facility] [address] [place] [address], [facility] Hemoglobin (Bld) [Mass/Vol] 12.8 g/dL Low 13.0-17.0 [facility] Comment on above: Order Comment: << On admission If not done in ED>> No: Do not add to previous draw Performed By: #### 0 0121, 94908, 96492, 44803, 39386 #### [facility] [facility] [address] [place] [address], [facility] MCH (RBC) [Entitic mass] 28.8 pg Normal 27.0-33.0 [facility] Comment on above: Order Comment: << On admission If not done in ED>> No: Do not add to previous draw Performed By: #### 0 0121, 79444, 34590, 89735, 39062 #### [facility] [address] [place] [address], [facility] MCHC (RBC) [Mass/Vol] 32.2 g/dL Normal 32.0-35.0 [facility] Comment on above: Order Comment: << On admission If not done in ED>> No: Do not add to previous draw Performed By: #### 0 0121, 43225, 52866, 13178, 79140 #### [facility] [address] [place] [address], [facility] MCV (RBC) [Entitic vol] 89.4 fL Normal 82.0-98.0 [facility] Comment on above: Order Comment: << On admission If not done in ED>> No: Do not add to previous draw Performed By: #### 0 0121, 10754, 01972, 10764, 64531 #### [facility] [address] Nucleated RBC/100 WBC (Bld) [Ratio] 0 % Normal 0-0 [facility] Comment on above: Order Comment: << On admission If not done in ED>> No: Do not add to previous draw Performed By: #### 0 0121, 08040, 10330, 03918, 26940 #### [facility] [address] [place] [address], [facility] PLAT CNT 144 10*3/uL Low 150-400 [facility] Comment on above: Order Comment: << On admission If not done in ED>> No: Do not add to previous draw Performed By: #### 0 0121, 86391, 85808, 11092, 07906 #### [facility] [address] RBC (Bld) [#/Vol] 4.45 10*6/uL Normal 4.20-5.70 [facility] Comment on above: Order Comment: << On admission If not done in ED>> No: Do not add to previous draw Performed By: #### 0 0121, 38253, 44721, 97616, 25800 #### [facility] [address] WBC (Bld) [#/Vol] 18.51 10*3/uL High 4.00-10.60 [facility] Comment on above: Order Comment: << On admission If not done in ED>> No: Do not add to previous draw Performed By: #### 0 0121, 83494, 95443, 71984, 85755 #### [facility] [address] [place] [address], [facility] Erythrocyte distribution width (RBC) [Ratio] 13.1 % Normal 11.5-15.0 [facility] Comment on above: Order Comment: << On admission If not done in ED>> No: Do not add to previous draw Performed By: #### 0 0121, 54434, 69447, 60727, 44714 #### [facility] [address] [place] [address], [facility] Hematocrit (Bld) [Volume fraction] 43.9 % Normal 39.0-50.0 [facility] Comment on above: Order Comment: << On admission If not done in ED>> No: Do not add to previous draw Performed By: #### 0 0121, 68459, 95666, 28158, 66417 #### [facility] [address] [place] [address], [facility] Hemoglobin (Bld) [Mass/Vol] 13.9 g/dL Normal 13.0-17.0 [facility] Comment on above: Order Comment: << On admission If not done in ED>> No: Do not add to previous draw Performed By: #### 0 0121, 12469, 54337, 52469, 17832 #### [facility] [address] [place] [address], [facility] MCH (RBC) [Entitic mass] 28.7 pg Normal 27.0-33.0 [facility] Comment on above: Order Comment: << On admission If not done in ED>> No: Do not add to previous draw Performed By: #### 0 0121, 62290, 36625, 72844, 11013 #### [facility] [address] [place] [address], [facility] MCHC (RBC) [Mass/Vol] 31.7 g/dL Low 32.0-35.0 [facility] Comment on above: Order Comment: << On admission If not done in ED>> No: Do not add to previous draw Performed By: #### 0 0121, 83421, 28195, 08154, 19026 #### [facility] [address] [place] [address], [facility] MCV (RBC) [Entitic vol] 90.5 fL Normal 82.0-98.0 [facility] Comment on above: Order Comment: << On admission If not done in ED>> No: Do not add to previous draw Performed By: #### 0 0121, 87770, 10149, 38130, 31262 #### [facility] [address] [place] [address], [place] PLAT CNT 185 10*3/uL Normal 150-400 [facility] Comment on above: Order Comment: << On admission If not done in ED>> No: Do not add to previous draw Performed By: #### 0 0121, 00918, 11390, 71484, 84807 #### [facility] [address] [place] [address], [facility] RBC (Bld) [#/Vol] 4.85 10*6/uL Normal 4.20-5.70 [facility] Comment on above: Order Comment: << On admission If not done in ED>> No: Do not add to previous draw Performed By: #### 0 0121, 62578, 92910, 72793, 07634 #### [facility] [address] [place] [address], [facility] WBC (Bld) [#/Vol] 19.37 10*3/uL High 4.00-10.60 [facility] Comment on above: Order Comment: << On admission If not done in ED>> No: Do not add to previous draw Performed By: #### 0 0121, 16900, 57970, 18123, 58751 #### [facility] [address] [place] [address], [place] Hematocrit (Bld) [Volume fraction] 42.3 % Normal 39.0-50.0 [facility] Comment on above: Order Comment: << On admission If not done in ED>> No: Do not add to previous draw Performed By: #### 0 0121, 51729, 67297, 06916, 13892 #### [facility] [address] [place] [address], [place] Hemoglobin (Bld) [Mass/Vol] 14.0 g/dL Normal 13.0-17.0 [facility] Comment on above: Order Comment: << On admission If not done in ED>> No: Do not add to previous draw Performed By: #### 0 0121, 29315, 85386, 19481, 70637 #### [facility] [address] MCH (RBC) [Entitic mass] 29.2 pg Normal 27.0-33.0 [facility] Comment on above: Order Comment: << On admission If not done in ED>> No: Do not add to previous draw Performed By: #### 0 0121, 63479, 92928, 06490, 42807 #### [facility] [address] MCHC (RBC) [Mass/Vol] 33.1 g/dL Normal 32.0-35.0 [facility] Comment on above: Order Comment: << On admission If not done in ED>> No: Do not add to previous draw Performed By: #### 0 0121, 05714, 06867, 18829, 07529 #### [facility] [address] [facility] [address] MCV (RBC) [Entitic vol] 88.3 fL Normal 82.0-98.0 [facility] Comment on above: Order Comment: << On admission If not done in ED>> No: Do not add to previous draw Performed By: #### 0 0121, 92263, 21604, 45189, 16774 #### [facility] [address] [place] [address], [facility] PLAT CNT 169 10*3/uL Normal 150-400 [facility] Comment on above: Order Comment: << On admission If not done in ED>> No: Do not add to previous draw Performed By: #### 0 0121, 30125, 45633, 71910, 80872 #### [facility] [address] [place] [address], [facility] RBC (Bld) [#/Vol] 4.79 10*6/uL Normal 4.20-5.70 [facility] Comment on above: Order Comment: << On admission If not done in ED>> No: Do not add to previous draw Performed By: #### 0 0121, 50848, 45896, 52972, 46965 #### [facility] [address] [place] [address], [facility] WBC (Bld) [#/Vol] 19.78 10*3/uL High 4.00-10.60 [facility] Comment on above: Order Comment: << On admission If not done in ED>> No: Do not add to previous draw Performed By: #### 0 0121, 60875, 59458, 92787, 85958 #### [facility] [address] [facility] [place] [place] [address], [facility] COOXIMETRYon 03-20-2019 COHB 2 % Normal [facility] Comment on above: Performed By: #### 0 0121, 70514, 28453, 75114, 14351 #### [facility] [address] [facility] [place] [place] [address], [facility] METHB 0 % Normal [facility] Comment on above: Performed By: #### 0 0121, 60356, 66265, 86937, 71111 #### [facility] [address] [facility] [place] [place] [address], [facility] Oxygen saturation in Blood 68.0 % Normal 65.0-75.0 [facility] Comment on above: Performed By: #### 0 0121, 35346, 46325, 84491, 78083 #### [facility] [address] [place] [address], [place] THB 13.2 g/dL Normal [facility] Comment on above: Performed By: #### 0 0121, 67686, 68054, 35222, 94361 #### [facility] [address] [place] [address], [facility] CPK-MB PROFILEon 03-20-2019 CK [Catalytic activity/Vol] 2914 U/L Critically high 30-223 [facility] Comment on above: Order Comment: << On admission If not done in ED>> No: Do not add to previous draw Performed By: #### 0 0121, 20578, 55214, 62558, 95411 #### [facility] [address] [place] [address], [facility] CK.MB [Mass/Vol] 3.8 ng/mL Critically high 0.0-1.9 [facility] Comment on above: Order Comment: << On admission If not done in ED>> No: Do not add to previous draw Result Comment: M-CR ITICAL RESULT(S) REVIEWED, CALLED TO AND READ BACK BY DAKOTAH MONTANO RN AT 0550 Performed By: #### 0 0121, 76051, 58238, 50481, 15194 #### [facility] [address] [facility] [place] [place] [address], [facility] CK.MB [Mass/Vol] 111.1 ng/mL High 0.0-5.0 [facility] Comment on above: Order Comment: << On admission If not done in ED>> No: Do not add to previous draw Result Comment: IF T OTAL CK <200 U/L AND: 1. CKMB IS 5-10 NG/ML----BORDERLINE 2. CKMB IS >10 NG/ML----INDICATIVE OF MS OR IF TOTAL CK >200 U/L AND CKMB INDEX >1.9----INDICATIVE OF MS Performed By: #### 0 0121, 59818, 67455, 97316, 47391 #### [facility] [address] [place] [address], [facility] LACTATE BLOODon 03-20-2019 Lactate [Moles/Vol] 1.9 mmol/L Normal 0.5-2.2 [facility] Comment on above: Order Comment: << On admission If not done in ED>> No: Do not add to previous draw Performed By: #### 0 0121, 36271, 91411, 07544, 68886 #### [facility] [address] [place] [address], [facility] Lactate [Moles/Vol] 3.1 mmol/L Critically high 0.5-2.2 [facility] Comment on above: Order Comment: << On admission If not done in ED>> No: Do not add to previous draw Result Comment: M-CO EVIOUS CRITICAL RESULT Performed By: #### 0 0121, 78911, 34898, 20779, 31309 #### [facility] [address] [place] [address], [facility] Lactate [Moles/Vol] 2.7 mmol/L Critically high 0.5-2.2 [facility] Comment on above: Order Comment: << On admission If not done in ED>> No: Do not add to previous draw Result Comment: M-CO EVIOUS CRITICAL RESULT Performed By: #### 0 0121, 91350, 83918, 92037, 71436 #### [facility] [address] [place] [address], [facility] MAGNESIUM BLOODon 03-20-2019 Magnesium [Mass/Vol] 2.1 mg/dL Normal 1.9-2.7 [facility] Comment on above: Order Comment: << On admission If not done in ED>> No: Do not add to previous draw Performed By: #### 0 0121, 83005, 92150, 95344, 44667 #### [facility] [address] [place] [address], [place] Magnesium [Mass/Vol] 2.3 mg/dL Normal 1.9-2.7 [facility] Comment on above: Order Comment: << On admission If not done in ED>> No: Do not add to previous draw Performed By: #### 0 0121, 12508, 39959, 03002, 80133 #### [facility] [address] [place] [address], [facility] Magnesium [Mass/Vol] 2.4 mg/dL Normal 1.9-2.7 [facility] Comment on above: Order Comment: << On admission If not done in ED>> No: Do not add to previous draw Performed By: #### 0 0121, 90215, 48690, 01158, 37752 #### [facility] [address] Operative Reporton 9 Operative Report MR#: [id number] I [facility] Pt. Name: Tracie Crain Room #: [id number] Discharge Date: Birthdate: 1965 OPERATIVE REPORT DATE [...] and increased complexity of the case. ASSISTANTS: Yulisa and Alissa. ANESTHESIA: General with endotracheal intubation. ANESTHESIOLOGIST: Antonio [...] Black MD Date Trans: 03/20/2019 02:34 A/bessie [id number] cc: Titus Villegas M.D. [address], [place] [facility] [address] [place] [facility] Operative Report MR#: [id number] I [facility] Pt. Name: Tracie Crain Room #: [id number] Discharge Date: Birthdate: 1965 OPERATIVE REPORT DATE [...] dexterity required for this case. ASSISTANTS: Evan Márquez and Alice. ANESTHESIA: General with endotracheal intubation. ANESTHESIOLOGIST: Antonio [...] right chest elevated to 30 degrees. A EGRMAN was done, showed ejection fraction about 30-35% [...] and posteromedial papillary muscle. These were 4.0 [place] stitches and they were brought out in [...] Black MD Date Trans: 03/20/2019 02:21 A/bessie [id number] cc: Titus Villegas M.D. [address] [place] [facility] [address] Normal [facility] POC GLUCOSE LABon 03-20-2019 Glucose [Mass/Vol] 117 mg/dL High 70-100 [facility] Comment on above: Performed By: #### 0 0121, 72086, 52164, 26473, 79049 #### [facility] [address] [place] [address], [place] Glucose [Mass/Vol] 114 mg/dL High 70-100 [facility] Comment on above: Performed By: #### 0 0121, 18928, 43041, 05675, 23588 #### [facility] [address] [place] [address], [place] Glucose [Mass/Vol] 117 mg/dL High 70-100 [facility] Comment on above: Performed By: #### 0 0121, 94127, 42247, 20353, 51722 #### [facility] [address] [place] [address], [place] Glucose [Mass/Vol] 99 mg/dL Normal 70-100 [facility] Comment on above: Performed By: #### 0 0121, 99544, 19707, 84814, 92367 #### [facility] [address] [place] [address], [place] Glucose [Mass/Vol] 125 mg/dL High 70-100 [facility] Comment on above: Performed By: #### 0 0121, 51785, 04992, 25394, 18437 #### [facility] [address] [place] [address], [place] Glucose [Mass/Vol] 102 mg/dL High 70-100 [facility] Comment on above: Performed By: #### 0 0121, 05732, 85984, 55610, 58411 #### [facility] [address] [place] [address], [place] Glucose [Mass/Vol] 97 mg/dL Normal 70-100 [facility] Comment on above: Performed By: #### 0 0121, 63885, 42930, 30637, 81065 #### [facility] [address] [place] [address], [place] Glucose [Mass/Vol] 102 mg/dL High 70-100 [facility] Comment on above: Performed By: #### 0 0121, 61217, 94687, 69463, 65394 #### [facility] [address] [place] [address], [place] Glucose [Mass/Vol] 124 mg/dL High 70-100 [facility] Comment on above: Performed By: #### 0 0121, 77578, 53740, 72186, 19477 #### [facility] [address] [place] [address], [place] Glucose [Mass/Vol] 112 mg/dL High 70-100 [facility] Comment on above: Order Comment: << On admission If not done in ED>> No: Do not add to previous draw Performed By: #### 0 0121, 56168, 53551, 96657, 96593 #### [facility] [address] [place] [address], [place] Glucose [Mass/Vol] 129 mg/dL High 70-100 [facility] Comment on above: Performed By: #### 0 0121, 52242, 84363, 58610, 49101 #### [facility] [address] [place] [address], [place] Glucose [Mass/Vol] 122 mg/dL High 70-100 [facility] Comment on above: Performed By: #### 0 0121, 03992, 53747, 21941, 29700 #### [facility] [address] [place] [address], [place] Glucose [Mass/Vol] 133 mg/dL High 70-100 [facility] Comment on above: Performed By: #### 0 0121, 57150, 21477, 53515, 68754 #### [facility] [address] [facility] [place] [address], [facility] Glucose [Mass/Vol] 130 mg/dL High 70-100 [facility] Comment on above: Performed By: #### 5 7307 #### [facility] [address] [place] [address], [facility] Glucose [Mass/Vol] 142 mg/dL High 70-100 [facility] Comment on above: Performed By: #### 5 7307 #### [facility] [address] [facility] [place] [address], [facility] PORTABLE CHEST 1 VIEWon 03-01 PORTABLE CHEST 1 VIEW [facility] Department of Radiology [address] [place] [address] ======== Patient Name: TRACIE CRAIN : 1965 Sex: M Age: Race: NA Pt. Location: [id number] Patient Status: I Ordered Date: 03/20/2019 8:05:00 [...] tube is 7 cm from the loki. [place]-Sher catheter with tip projecting over the pulmonary [...] findings. Electronically signed by:Yenni Osuna. Transcribed by: [email or web address], User Resident: ANAI ALVARADO Electronically Signed by: YENNI OSUNA @ 03/22/2019 11:07 AM I personally read this/these film(s) with this resident Normal [facility] Comment on above: Order Comment: << On admission If not done in ED>> No: Do not add to previous draw PORTABLE CHEST 1 VIEW [facility] Department of Radiology [address] [place] [address] ======== Patient Name: TRACIE CRAIN : 1965 Sex: M Age: Race: NA Pt. Location: [id number] Patient Status: I Ordered Date: 03/20/2019 5:00:00 [...] tube is 7 cm from the loki. [place]-Sher catheter with tip projecting over the pulmonary [...] findings. Electronically signed by:Divya Collins. Transcribed by: [email or web address], User Resident: ANAI ALVARADO Electronically Signed by: DIVYA COLLINS @ 03/20/2019 11:01 AM I personally read this/these film(s) with this resident Normal [facility] Comment on above: Order Comment: << On admission If not done in ED>> No: Do not add to previous draw PROTHROMBIN TIMEon 9 INR Coag (PPP) [Relative time] 1.37 {INR} High 0.91-1.16 [facility] Comment on above: Order Comment: << [...] CHEST 1995;108:231S-246S. Performed By: #### 0 0121, 52609, 01352, 80302, 76165 #### [facility] [address] PT Coag (PPP) [Time] 16.9 s High 12.3-14.8 [facility] Comment on above: Order Comment: << On admission If not done in ED>> No: Do not add to previous draw Result Comment: ALL RESULTS MUST BE INTERPRETED WITH RESPECT TO BLOOD DRAWING ARTIFACT OR DILUTION ERROR OF ANTICOAGULANT AT THE TIME OF SAMPLING. Performed By: #### 0 0121, 14586, 91027, 75917, 12577 #### [facility] [address] [place] [address], [place] ACTIVATED CLOTTING TIMEon ACTIVATED CLOTTING TIME 115 sec Normal 82-152 [facility] Comment on above: Performed By: #### 8 6346, 04156 #### [facility] [address] [place] [address], [place] ACTIVATED CLOTTING TIME 508 sec High 82-152 [facility] Comment on above: Performed By: #### 8 5123, 33358 #### [facility] [address] [place] [address], [place] ACTIVATED CLOTTING TIME 508 sec High 82-152 [facility] Comment on above: Performed By: #### 8 5123, 93373 #### [facility] [address] [place] [address], [place] ACTIVATED CLOTTING TIME 610 sec High 82-152 [facility] Comment on above: Performed By: #### 8 5123, 52451 #### [facility] [address] [place] [address], [place] ACTIVATED CLOTTING TIME 621 sec High 82-152 [facility] Comment on above: Performed By: #### 8 5123, 75648 #### [facility] [address] [place] [address], [place] ACTIVATED CLOTTING TIME 660 sec High 82-152 [facility] Comment on above: Performed By: #### 8 5123, 80649 #### [facility] [address] [place] [address], [place] ACTIVATED CLOTTING TIME 508 sec High 82-152 [facility] Comment on above: Performed By: #### 8 5123, 90479 #### [facility] [address] [place] [address], [place] ACTIVATED CLOTTING TIME 514 sec High 82-152 [facility] Comment on above: Performed By: #### 0 0121, 74186, 37642, 66811, 44458 #### [facility] [address] [place] [address], [place] ACTIVATED CLOTTING TIME 514 sec High 82-152 [facility] Comment on above: Performed By: #### 0 0121, 75969, 67328, 98814, 37851 #### [facility] [address] [place] [address], [facility] ACTIVATED CLOTTING TIME 502 sec High 82-152 [facility] Comment on above: Performed By: #### 0 0121, 66347, 90449, 78059, 57136 #### [facility] [address] [place] [address], [place] ACTIVATED CLOTTING TIME 473 sec High 82-152 [facility] Comment on above: Performed By: #### 0 0121, 60166, 62999, 27400, 76913 #### [facility] [address] [place] [address], [facility] ACTIVATED CLOTTING TIME 508 sec High 82-152 [facility] Comment on above: Performed By: #### 0 0121, 82713, 17184, 25127, 13596 #### [facility] [address] [place] [address], [facility] ACTIVATED CLOTTING TIME 115 sec Normal 82-152 [facility] Comment on above: Performed By: #### 0 0121, 27961, 83532, 60614, 48800 #### [facility] [address] [place] [address], [facility] APTTon 03-19-2019 aPTT Coag (Bld) [Time] 28.6 s Normal 25.0-35.0 The [facility] Comment on above: Result Comment: ALL RESULTS [...] THIS PURPOSE. Performed By: #### 8 5123, 33633 #### [facility] [address] [place] [id number], [facility] aPTT Coag (Bld) [Time] 33.6 s Normal 25.0-35.0 [facility] Comment on above: Order Comment: If [...] THIS PURPOSE. Performed By: #### 0 0121, 18216, 03297, 66231, 85577 #### [facility] [address] ARTERIAL BLOOD GAS W/COOXon 03-19-2019 BASE EXCESS -8 mmol/L Low -2-3 [facility] Comment on above: Performed By: #### 8 4511, 14211 ####[facility] [facility].[address] COHB 2.6 % High 0.0-1.5 [facility] Comment on above: Performed By: #### 8 4511, 88224 ####[facility].[address] DELIVERY SYSTEMS VENT Normal [facility] Comment on above: Performed By: #### 8 4511, 28342 ####[facility] [facility].[address] FIO2 100 % Normal [facility] Comment on above: Performed By: #### 8 4511, 04585 ####[facility] [facility].[address] HCO3 (Bld) [Moles/Vol] 19 mmol/L Low 21-28 [facility] Comment on above: Performed By: #### 8 4511, 51093 ####[facility] [facility] [address], [facility] METHB 0.8 % Normal 0.0-1.5 [facility] Comment on above: Performed By: #### 8 1951, 38338 ####[facility] [id number], [facility] MIN VOLUME 11.6 Normal [facility] Comment on above: Performed By: #### 8 3731, 53658 ####[facility] [place] [address], [facility] MODALITY AC Normal [facility] Comment on above: Performed By: #### 8 9281, 73812 ####[facility] [place] [address], [facility] Oxygen (Bld) [Partial pressure] 61 mm[Hg] Low 83-108 [facility] Comment on above: Performed By: #### 8 8511, 86837 ####[facility] [place] [address], [facility] Oxygen saturation in Blood 88.9 % Low 94.0-97.0 [facility] Comment on above: Performed By: #### 8 0381, 91897 ####[facility] [place] [address], [facility] PCO2 43 mmHg Normal 35-45 [facility] Comment on above: Performed By: #### 8 8151, 65280 ####[facility] [place] [address], [facility] PEEP 10.0 CMH20 Normal [facility] Comment on above: Performed By: #### 8 0771, 38169 ####[facility] [place] [address], [facility] pH (Bld) 7.26 [pH] Low 7.35-7.45 [facility] Comment on above: Result Comment: KINJAL REYNOSO NOTE: Effective 12/02/18, reference ranges for Respiratory GEM analyzers running arterial blood have been updated to reflect the manager card's published reference ranges. Performed By: #### 8 4921, 99389 ####[facility] THB 14.2 g/dL Normal 12.0-16.3 [facility] Comment on above: Performed By: #### 8 2831, 52609 ####[facility] TIDAL VOLUME (VT) CC 700 cc Normal [facility] Comment on above: Performed By: #### 8 1611, 35948 ####[facility] [facility].[address] ARTERIAL BLOOD GAS WITH ICAo n 03-19-2019 BASE EXCESS -4 mmol/L Low -2-3 [facility] Comment on above: Performed By: #### 5 7307 #### [facility] [address] DELIVERY SYSTEMS MV Normal [facility] Comment on above: Performed By: #### 5 7307 #### [facility] [address] [place] [address], [facility] FIO2 100 % Normal [facility] Comment on above: Performed By: #### 5 7307 #### [facility] [address] [place] [address], [facility] HCO3 (Bld) [Moles/Vol] 20 mmol/L Low 21-28 [facility] Comment on above: Performed By: #### 5 7307 #### [facility] [address] [place] [address], [facility] IONIZED CALCIUM 1.21 mmol/L Normal 1.13-1.32 [facility] Comment on above: Performed By: #### 5 7398 #### [facility] [address] [place] [address], [facility] MIN VOLUME 13.6 Normal [facility] Comment on above: Performed By: #### 5 7307 #### [facility] [address] [place] [address], [facility] MODALITY AC Normal [facility] Comment on above: Performed By: #### 5 7307 #### [facility] [address] [place] [address], [facility] Oxygen (Bld) [Partial pressure] 74 mm[Hg] Low 83-108 [facility] Comment on above: Performed By: #### 5 7307 #### [facility] [address] [place] [address], [facility] Oxygen saturation in Blood 93.5 % Low 94.0-97.0 [facility] Comment on above: Performed By: #### 5 7307 #### [facility] [address] [place] [address], [facility] PCO2 33 mmHg Low 35-45 [facility] Comment on above: Performed By: #### 5 7307 #### [facility] [address] [facility] [place] [place] [address], [facility] PEEP 10.0 CMH20 Normal [facility] Comment on above: Performed By: #### 5 7307 #### [facility] [address] [place] [address], [facility] PF RATIO 74 mmHg Normal [facility] Comment on above: Performed By: #### 5 7307 #### [facility] [address] [place] [id number], [facility] pH (Bld) 7.39 [pH] Normal 7.35-7.45 [facility] Comment on above: Result Comment: KINJAL REYNOSO NOTE: Effective 12/02/18, reference ranges for Respiratory GEM analyzers running arterial blood have been updated to reflect the manager card's published reference ranges. Performed By: #### 5 7307 #### [facility] [address] TIDAL VOLUME (VT) CC 700 cc Normal [facility] Comment on above: Performed By: #### 5 7307 #### [facility] [address] BASE EXCESS -7 mmol/L Low -2-3 [facility] Comment on above: Order Comment: R/O P ulmonary Edema Performed By: #### 8 707, 16376 ####[facility] DELIVERY SYSTEMS MV Normal [facility] Comment on above: Order Comment: R/O P ulmonary Edema Performed By: #### 8 014, 65802 ####[facility] [facility].[address] FIO2 100 % Normal [facility] Comment on above: Order Comment: R/O P ulmonary Edema Performed By: #### 8 019, 56703 ####[facility] [facility].[address] HCO3 (Bld) [Moles/Vol] 21 mmol/L Normal 21-28 [facility] Comment on above: Order Comment: R/O P ulmonary Edema Performed By: #### 8 561, 50925 ####[facility] [facility].[address] IONIZED CALCIUM 1.36 mmol/L High 1.13-1.32 [facility] Comment on above: Order Comment: R/O P ulmonary Edema Performed By: #### 8 933, 04950 ####[facility] [facility].[address] MIN VOLUME 13.0 Normal [facility] Comment on above: Order Comment: R/O P ulmonary Edema Performed By: #### 8 226, 81435 ####[facility] [place] [address], [facility] MODALITY SIMV Normal [facility] Comment on above: Order Comment: R/O P ulmonary Edema Performed By: #### 8 4511, 47179 ####[facility] [place] [address], [facility] Oxygen (Bld) [Partial pressure] 63 mm[Hg] Low 83-108 [facility] Comment on above: Order Comment: R/O P ulmonary Edema Performed By: #### 8 5421, 04038 ####[facility] [place] [address], [facility] Oxygen saturation in Blood 89.3 % Low 94.0-97.0 [facility] Comment on above: Order Comment: R/O P ulmonary Edema Performed By: #### 8 308, 15509 ####[facility] [facility] [address], [facility] PCO2 46 mmHg High 35-45 [facility] Comment on above: Order Comment: R/O P ulmonary Edema Performed By: #### 8 2041, 37880 ####[facility] [place] [address], [facility] PEEP 8.0 CMH20 Normal [facility] Comment on above: Order Comment: R/O P ulmonary Edema Performed By: #### 8 6221, 93735 ####[facility] [place] [address], [place] PF RATIO 63 mmHg Normal [facility] Comment on above: Order Comment: R/O P ulmonary Edema Performed By: #### 8 5831, 94394 ####[facility] [place] [address], [facility] pH (Bld) 7.26 [pH] Low 7.35-7.45 [facility] Comment on above: Order Comment: R/O P ulmonary Edema Result Comment: KINJAL REYNOSO NOTE: Effective 12/02/18, reference ranges for Respiratory GEM analyzers running arterial blood have been updated to reflect the manager card's published reference ranges. Performed By: #### 8 9981, 03006 ####[facility] [place] [address], [place] PRESSURE SUPPORT 5 Normal [facility] Comment on above: Order Comment: R/O P ulmonary Edema Performed By: #### 8 8001, 09619 ####[facility] [place] [address], [place] TIDAL VOLUME (VT) CC 600 cc Normal [facility] Comment on above: Order Comment: R/O P ulmonary Edema Performed By: #### 8 0431, 77713 ####[facility] [place] [address], [place] BASIC METABOLIC PANELon 06-2 0-2018 Calcium [Mass/Vol] 8.6 mg/dL Normal 8.6-10.3 [facility] Comment on above: Order Comment: No: D o not add to previous draw Performed By: #### 5 7307 #### [facility] [address] [place] [address], [place] Chloride [Moles/Vol] 113 mmol/L High 98-107 [facility] Comment on above: Order Comment: No: D o not add to previous draw Performed By: #### 5 7307 #### [facility] [address] [place] [address], [place] CO2 [Moles/Vol] 21 mmol/L Normal 21-31 [facility] Comment on above: Order Comment: No: D o not add to previous draw Performed By: #### 5 7307 #### [facility] [address] [place] [address], [place] Creatinine [Mass/Vol] 1.14 mg/dL Normal 0.70-1.30 [facility] Comment on above: Order Comment: No: D o not add to previous draw Performed By: #### 5 7307 #### [facility] [address] [place] [address], [place] GFR/1.73 sq M predicted among blacks MDRD (S/P/Bld) [Vol rate/Area] mL/min/{1.73_m2} Normal >60 [facility] Comment on above: Order Comment: No: D o not add to previous draw Performed By: #### 5 7307 #### [facility] [address] [place] [address], [place] GFR/1.73 sq M predicted among non-blacks MDRD (S/P/Bld) [Vol rate/Area] mL/min/{1.73_m2} Normal >60 [facility] Comment on above: Order Comment: No: D o not add to previous draw Performed By: #### 5 7307 #### [facility] [address] [place] [address], [place] Glucose [Mass/Vol] 164 mg/dL High 70-100 [facility] Comment on above: Order Comment: No: D o not add to previous draw Performed By: #### 5 7307 #### [facility] [address] [place] [address], [place] Potassium [Moles/Vol] 4.3 mmol/L Normal 3.5-5.1 [facility] Comment on above: Order Comment: No: D o not add to previous draw Performed By: #### 5 7307 #### [facility] [address] [place] [address], [place] Sodium [Moles/Vol] 142 mmol/L Normal 136-145 [facility] Comment on above: Order Comment: No: D o not add to previous draw Performed By: #### 5 7307 #### [facility] [address] [place] [address], [place] Urea nitrogen [Mass/Vol] 19 mg/dL Normal 7-25 [facility] Comment on above: Order Comment: No: D o not add to previous draw Performed By: #### 5 7307 #### [facility] [address] [place] [address], [place] Calcium [Mass/Vol] 9.8 mg/dL Normal 8.6-10.3 [facility] Comment on above: Order Comment: If no t done in ED No: Do not add to previous draw Performed By: #### 8 5123, 54227 #### [facility] [address] [place] [address], [place] Chloride [Moles/Vol] 112 mmol/L High 98-107 [facility] Comment on above: Order Comment: If no t done in ED No: Do not add to previous draw Performed By: #### 8 5123, 40171 #### [facility] [address] [place] [address], [place] CO2 [Moles/Vol] 21 mmol/L Normal 21-31 [facility] Comment on above: Order Comment: If no t done in ED No: Do not add to previous draw Performed By: #### 8 5123, 09327 #### [facility] [address] [place] [address], [place] Creatinine [Mass/Vol] 1.07 mg/dL Normal 0.70-1.30 [facility] Comment on above: Order Comment: If no t done in ED No: Do not add to previous draw Performed By: #### 8 5123, 81492 #### [facility] [address] [place] [address], [place] GFR/1.73 sq M predicted among blacks MDRD (S/P/Bld) [Vol rate/Area] mL/min/{1.73_m2} Normal >60 [facility] Comment on above: Order Comment: If no t done in ED No: Do not add to previous draw Performed By: #### 8 5123, 49034 #### [facility] [address] [place] [address], [place] GFR/1.73 sq M predicted among non-blacks MDRD (S/P/Bld) [Vol rate/Area] mL/min/{1.73_m2} Normal >60 [facility] Comment on above: Order Comment: If no t done in ED No: Do not add to previous draw Performed By: #### 8 5123, 88383 #### [facility] [address] [place] [address], [place] Glucose [Mass/Vol] 147 mg/dL High 70-100 [facility] Comment on above: Order Comment: If no t done in ED No: Do not add to previous draw Performed By: #### 8 5123, 36228 #### [facility] [address] [place] [address], [place] Potassium [Moles/Vol] 3.9 mmol/L Normal 3.5-5.1 [facility] Comment on above: Order Comment: If no t done in ED No: Do not add to previous draw Performed By: #### 8 5123, 35329 #### [facility] [address] [place] [address], [place] Sodium [Moles/Vol] 142 mmol/L Normal 136-145 [facility] Comment on above: Order Comment: If no t done in ED No: Do not add to previous draw Performed By: #### 8 5123, 54254 #### [facility] [address] [place] [address], [place] Urea nitrogen [Mass/Vol] 19 mg/dL Normal 7-25 [facility] Comment on above: Order Comment: If no t done in ED No: Do not add to previous draw Performed By: #### 8 5123, 39483 #### [facility] [address] [place] [address], [place] Calcium [Mass/Vol] 9.5 mg/dL Normal 8.6-10.3 [facility] Comment on above: Order Comment: If no t done in ED No: Do not add to previous draw Performed By: #### 0 0121, 95220, 94510, 71048, 54465 #### [facility] [address] [place] [address], [place] Chloride [Moles/Vol] 105 mmol/L Normal 98-107 [facility] Comment on above: Order Comment: If no t done in ED No: Do not add to previous draw Performed By: #### 0 0121, 81501, 69961, 88525, 12730 #### [facility] [address] [place] [address], [place] CO2 [Moles/Vol] 24 mmol/L Normal 21-31 [facility] Comment on above: Order Comment: If no t done in ED No: Do not add to previous draw Performed By: #### 0 0121, 94462, 06539, 14818, 56289 #### [facility] [address] [place] [address], [place] Creatinine [Mass/Vol] 1.11 mg/dL Normal 0.70-1.30 [facility] Comment on above: Order Comment: If no t done in ED No: Do not add to previous draw Performed By: #### 0 0121, 42109, 51791, 85024, 15062 #### [facility] [address] [place] [address], [place] GFR/1.73 sq M predicted among blacks MDRD (S/P/Bld) [Vol rate/Area] mL/min/{1.73_m2} Normal >60 [facility] Comment on above: Order Comment: If no t done in ED No: Do not add to previous draw Performed By: #### 0 0121, 80530, 04994, 82626, 30567 #### [facility] [address] [place] [address], [facility] GFR/1.73 sq M predicted among non-blacks MDRD (S/P/Bld) [Vol rate/Area] mL/min/{1.73_m2} Normal >60 [facility] Comment on above: Order Comment: If no t done in ED No: Do not add to previous draw Performed By: #### 0 0121, 66833, 21604, 55355, 43864 #### [facility] [address] [place] [address], [facility] Glucose [Mass/Vol] 89 mg/dL Normal 70-100 [facility] Comment on above: Order Comment: If no t done in ED No: Do not add to previous draw Performed By: #### 0 0121, 05670, 67512, 01265, 39775 #### [facility] [address] [place] [address], [facility] Potassium [Moles/Vol] 4.2 mmol/L Normal 3.5-5.1 [facility] Comment on above: Order Comment: If no t done in ED No: Do not add to previous draw Performed By: #### 0 0121, 87455, 70799, 43013, 82700 #### [facility] [address] [place] [address], [facility] Sodium [Moles/Vol] 135 mmol/L Low 136-145 [facility] Comment on above: Order Comment: If no t done in ED No: Do not add to previous draw Performed By: #### 0 0121, 07386, 49049, 62506, 77605 #### [facility] [address] [place] [address], [place] Urea nitrogen [Mass/Vol] 17 mg/dL Normal 7-25 [facility] Comment on above: Order Comment: If no t done in ED No: Do not add to previous draw Performed By: #### 0 0121, 11051, 78104, 94796, 59472 #### [facility] [address] CBC COMPLETE BLOOD COUNTon 03-19-2019 Erythrocyte distribution width (RBC) [Ratio] 13.0 % Normal 11.5-15.0 [facility] Comment on above: Order Comment: No: D o not add to previous draw Performed By: #### 5 7307 #### [facility] [address] [place] [address], [facility] Hematocrit (Bld) [Volume fraction] 42.7 % Normal 39.0-50.0 [facility] Comment on above: Order Comment: No: D o not add to previous draw Performed By: #### 5 7307 #### [facility] [address] [place] [address], [facility] Hemoglobin (Bld) [Mass/Vol] 14.3 g/dL Normal 13.0-17.0 [facility] Comment on above: Order Comment: No: D o not add to previous draw Performed By: #### 5 7307 #### [facility] [address] [place] [address], [facility] MCH (RBC) [Entitic mass] 29.4 pg Normal 27.0-33.0 [facility] Comment on above: Order Comment: No: D o not add to previous draw Performed By: #### 5 7307 #### [facility] [address] [place] [address], [facility] MCHC (RBC) [Mass/Vol] 33.5 g/dL Normal 32.0-35.0 [facility] Comment on above: Order Comment: No: D o not add to previous draw Performed By: #### 5 7307 #### [facility] [address] [place] [id number], [facility] MCV (RBC) [Entitic vol] 87.9 fL Normal 82.0-98.0 [facility] Comment on above: Order Comment: No: D o not add to previous draw Performed By: #### 5 7307 #### [facility] [address] [place] [address], [facility] Nucleated RBC/100 WBC (Bld) [Ratio] 0 % Normal 0-0 [facility] Comment on above: Order Comment: No: D o not add to previous draw Performed By: #### 5 7307 #### [facility] [address] [place] [id number], [facility] PLAT CNT 179 10*3/uL Normal 150-400 [facility] Comment on above: Order Comment: No: D o not add to previous draw Performed By: #### 5 7307 #### [facility] [address] [place] [address], [facility] RBC (Bld) [#/Vol] 4.86 10*6/uL Normal 4.20-5.70 [facility] Comment on above: Order Comment: No: D o not add to previous draw Performed By: #### 5 7307 #### [facility] [address] [place] [address], [facility] WBC (Bld) [#/Vol] 26.36 10*3/uL High 4.00-10.60 [facility] Comment on above: Order Comment: No: D o not add to previous draw Performed By: #### 5 7307 #### [facility] [address] [place] [id number], [facility] Erythrocyte distribution width (RBC) [Ratio] 13.0 % Normal 11.5-15.0 [facility] Comment on above: Order Comment: R/O P ulmonary Edema Performed By: #### 5 0608 ####[facility] [address], [facility] Hematocrit (Bld) [Volume fraction] 47.1 % Normal 39.0-50.0 [facility] Comment on above: Order Comment: R/O P ulmonary Edema Performed By: #### 5 0608 ####[facility] Hemoglobin (Bld) [Mass/Vol] 15.0 g/dL Normal 13.0-17.0 [facility] Comment on above: Order Comment: R/O P ulmonary Edema Performed By: #### 5 0608 ####[facility] MCH (RBC) [Entitic mass] 29.4 pg Normal 27.0-33.0 [facility] Comment on above: Order Comment: R/O P ulmonary Edema Performed By: #### 5 0608 ####[facility] MCHC (RBC) [Mass/Vol] 31.8 g/dL Low 32.0-35.0 [facility] Comment on above: Order Comment: R/O P ulmonary Edema Performed By: #### 5 0608 ####[facility] MCV (RBC) [Entitic vol] 92.4 fL Normal 82.0-98.0 [facility] Comment on above: Order Comment: R/O P ulmonary Edema Performed By: #### 5 0608 ####[facility] Nucleated RBC/100 WBC (Bld) [Ratio] 0 % Normal 0-0 [facility] Comment on above: Order Comment: R/O P ulmonary Edema Performed By: #### 5 0608 ####[facility] PLAT CNT 188 10*3/uL Normal 150-400 [facility] Comment on above: Order Comment: R/O P ulmonary Edema Performed By: #### 5 0608 ####[facility] RBC (Bld) [#/Vol] 5.10 10*6/uL Normal 4.20-5.70 [facility] Comment on above: Order Comment: R/O P ulmonary Edema Performed By: #### 5 0608 ####[facility] [id number], [facility] WBC (Bld) [#/Vol] 31.20 10*3/uL High 4.00-10.60 [facility] Comment on above: Order Comment: R/O P ulmonary Edema Performed By: #### 5 0608 ####[facility] Erythrocyte distribution width (RBC) [Ratio] 13.0 % Normal 11.5-15.0 [facility] Comment on above: Order Comment: If no t done in ED No: Do not add to previous draw Performed By: #### 8 5123, 69732 #### [facility] [address] [place] [address], [facility] Hematocrit (Bld) [Volume fraction] 44.2 % Normal 39.0-50.0 [facility] Comment on above: Order Comment: If no t done in ED No: Do not add to previous draw Performed By: #### 8 1563, 39763 #### [facility] [address] [place] [id number], [facility] Hemoglobin (Bld) [Mass/Vol] 14.4 g/dL Normal 13.0-17.0 [facility] Comment on above: Order Comment: If no t done in ED No: Do not add to previous draw Performed By: #### 8 3903, 75318 #### [facility] [address] [place] [id number], [place] MCH (RBC) [Entitic mass] 28.8 pg Normal 27.0-33.0 [facility] Comment on above: Order Comment: If no t done in ED No: Do not add to previous draw Performed By: #### 8 5123, 84102 #### [facility] [address] [place] [id number], [facility] MCHC (RBC) [Mass/Vol] 32.6 g/dL Normal 32.0-35.0 [facility] Comment on above: Order Comment: If no t done in ED No: Do not add to previous draw Performed By: #### 8 5123, 16971 #### [facility] [address] [place] [address], [facility] MCV (RBC) [Entitic vol] 88.4 fL Normal 82.0-98.0 [facility] Comment on above: Order Comment: If no t done in ED No: Do not add to previous draw Performed By: #### 8 5123, 25164 #### [facility] [address] [place] [id number], [facility] Nucleated RBC/100 WBC (Bld) [Ratio] 0 % Normal 0-0 [facility] Comment on above: Order Comment: If no t done in ED No: Do not add to previous draw Performed By: #### 8 5123, 85372 #### [facility] [address] [place] [id number], [place] PLAT CNT 166 10*3/uL Normal 150-400 [facility] Comment on above: Order Comment: If no t done in ED No: Do not add to previous draw Performed By: #### 8 5123, 09066 #### [facility] [address] [place] [address], [place] RBC (Bld) [#/Vol] 5.00 10*6/uL Normal 4.20-5.70 [facility] Comment on above: Order Comment: If no t done in ED No: Do not add to previous draw Performed By: #### 8 5123, 61427 #### [facility] [address] [place] [address], [place] WBC (Bld) [#/Vol] 33.13 10*3/uL High 4.00-10.60 [facility] Comment on above: Order Comment: If no t done in ED No: Do not add to previous draw Performed By: #### 8 5123, 43041 #### [facility] [address] [place] [address], [facility] Erythrocyte distribution width (RBC) [Ratio] 13.0 % Normal 11.5-15.0 [facility] Comment on above: Order Comment: If no t done in ED No: Do not add to previous draw Performed By: #### 0 0121, 84425, 59624, 40492, 83963 #### [facility] [address] [place] [address], [facility] Hematocrit (Bld) [Volume fraction] 55.7 % High 39.0-50.0 [facility] Comment on above: Order Comment: If no t done in ED No: Do not add to previous draw Performed By: #### 0 0121, 13213, 63419, 52421, 28698 #### [facility] [address] [place] [address], [facility] Hemoglobin (Bld) [Mass/Vol] 18.2 g/dL High 13.0-17.0 [facility] Comment on above: Order Comment: If no t done in ED No: Do not add to previous draw Performed By: #### 0 0121, 13555, 05483, 05032, 86266 #### [facility] [address] [place] [address], [place] MCH (RBC) [Entitic mass] 28.6 pg Normal 27.0-33.0 [facility] Comment on above: Order Comment: If no t done in ED No: Do not add to previous draw Performed By: #### 0 0121, 94797, 23571, 69930, 22057 #### [facility] [address] [place] MCHC (RBC) [Mass/Vol] 32.7 g/dL Normal 32.0-35.0 [facility] Comment on above: Order Comment: If no t done in ED No: Do not add to previous draw Performed By: #### 0 0121, 61006, 98595, 80810, 06792 #### [facility] [address] [place] [address], [facility] MCV (RBC) [Entitic vol] 87.4 fL Normal 82.0-98.0 [facility] Comment on above: Order Comment: If no t done in ED No: Do not add to previous draw Performed By: #### 0 0121, 52807, 22211, 84944, 82990 #### [facility] [address] [place] [address], [facility] Nucleated RBC/100 WBC (Bld) [Ratio] 0 % Normal 0-0 [facility] Comment on above: Order Comment: If no t done in ED No: Do not add to previous draw Performed By: #### 0 0121, 66184, 75319, 92346, 45551 #### [facility] [address] [place] [address], [facility] PLAT CNT 288 10*3/uL Normal 150-400 [facility] Comment on above: Order Comment: If no t done in ED No: Do not add to previous draw Performed By: #### 0 0121, 67225, 55942, 30662, 41901 #### [facility] [address] [place] [address], [place] RBC (Bld) [#/Vol] 6.37 10*6/uL High 4.20-5.70 [facility] Comment on above: Order Comment: If no t done in ED No: Do not add to previous draw Performed By: #### 0 0121, 07158, 03825, 38643, 83441 #### [facility] [address] [place] WBC (Bld) [#/Vol] 11.26 10*3/uL High 4.00-10.60 [facility] Comment on above: Order Comment: If no t done in ED No: Do not add to previous draw Performed By: #### 0 0121, 83404, 81647, 57046, 42933 #### [facility] [address] COMP METABOLIC PANELon 03-19 Albumin [Mass/Vol] 3.8 g/dL Normal 3.5-5.7 [facility] Comment on above: Order Comment: R/O P ulmonary Edema Performed By: #### 0 0121, 99113, 86456 ####[facility] ALKALINE PHOSPH 30 IU/L Low 34-104 [facility] Comment on above: Order Comment: R/O P ulmonary Edema Performed By: #### 0 0121, 84180, 66358 ####[facility] ALT [Catalytic activity/Vol] 37 U/L Normal 7-52 [facility] Comment on above: Order Comment: R/O P ulmonary Edema Performed By: #### 0 0121, 03794, 18696 ####[facility] [facility].[address] AST [Catalytic activity/Vol] 154 U/L High 13-39 [facility] Comment on above: Order Comment: R/O P ulmonary Edema Performed By: #### 0 0121, 30716, 35885 ####[facility] Bilirubin [Mass/Vol] 1.9 mg/dL High 0.3-1.0 [facility] Comment on above: Order Comment: R/O P ulmonary Edema Performed By: #### 0 0121, 69313, 94238 ####[facility] [facility] [place] [address], [facility] Calcium [Mass/Vol] 8.9 mg/dL Normal 8.6-10.3 [facility] Comment on above: Order Comment: R/O P ulmonary Edema Performed By: #### 0 0121, 66840, 85391 ####[facility] [place] [address], [facility] Chloride [Moles/Vol] 113 mmol/L High 98-107 [facility] Comment on above: Order Comment: R/O P ulmonary Edema Performed By: #### 0 0121, 43904, 89781 ####[facility] [facility] [place] [address], [facility] CO2 [Moles/Vol] 13 mmol/L Critically low 21-31 [facility] Comment on above: Order Comment: R/O P ulmonary Edema Result Comment: M-CR ITICAL RESULT(S) REVIEWED, CALLED TO AND READ BACK BY PEDRO CEDENO @[facility] 03.19.19 Performed By: #### 0 0121, 65616, 70964 ####[facility] [place] [address], [facility] Creatinine [Mass/Vol] 1.11 mg/dL Normal 0.70-1.30 [facility] Comment on above: Order Comment: R/O P ulmonary Edema Performed By: #### 0 0121, 75683, 59845 ####[facility] [facility] [place] [address], [facility] GFR/1.73 sq M predicted among blacks MDRD (S/P/Bld) [Vol rate/Area] mL/min/{1.73_m2} Normal >60 [facility] Comment on above: Order Comment: R/O P ulmonary Edema Performed By: #### 0 0121, 75128, 62235 ####[facility] [facility] [address], [facility] GFR/1.73 sq M predicted among non-blacks MDRD (S/P/Bld) [Vol rate/Area] mL/min/{1.73_m2} Normal >60 [facility] Comment on above: Order Comment: R/O P ulmonary Edema Performed By: #### 0 0121, 29361, 96354 ####[facility] [facility] [place] [address], [facility] Glucose [Mass/Vol] 132 mg/dL High 70-100 [facility] Comment on above: Order Comment: R/O P ulmonary Edema Performed By: #### 0 0121, 97654, 22648 ####[facility] [place] [address], [facility] Potassium [Moles/Vol] 4.4 mmol/L Normal 3.5-5.1 [facility] Comment on above: Order Comment: R/O P ulmonary Edema Performed By: #### 0 0121, 93989, 04121 ####[facility] [place] [address], [facility] Protein [Mass/Vol] 5.6 g/dL Low 6.0-8.3 [facility] Comment on above: Order Comment: R/O P ulmonary Edema Performed By: #### 0 0121, 40045, 19025 ####[facility] [place] [address], [facility] Sodium [Moles/Vol] 140 mmol/L Normal 136-145 [facility] Comment on above: Order Comment: R/O P ulmonary Edema Performed By: #### 0 0121, 54019, 64701 ####[facility] [place] [address], [facility] Urea nitrogen [Mass/Vol] 18 mg/dL Normal 7-25 [facility] Comment on above: Order Comment: R/O P ulmonary Edema Performed By: #### 0 0121, 69771, 35497 ####[facility] [place] [address], [place] COOXIMETRYon 03-19-2019 COHB 2 % Normal [facility] Comment on above: Order Comment: No: D o not add to previous draw Performed By: #### 5 7307 #### [facility] [address] [place] [address], [place] METHB 1 % Normal [facility] Comment on above: Order Comment: No: D o not add to previous draw Performed By: #### 5 7307 #### [facility] [address] [place] [address], [place] Oxygen saturation in Blood 66.9 % Normal 65.0-75.0 [facility] Comment on above: Order Comment: No: D o not add to previous draw Performed By: #### 5 7307 #### [facility] [address] [place] [address], [place] THB 13.1 g/dL Normal [facility] Comment on above: Order Comment: No: D o not add to previous draw Performed By: #### 5 7307 #### [facility] [address] [place] [address], [place] COHB 2 % Normal [facility] Comment on above: Performed By: #### 7 0207 ####[facility] [place] [address], [place] METHB 1 % Normal [facility] Comment on above: Performed By: #### 7 0207 ####[facility] [place] [address], [place] Oxygen saturation in Blood 59.2 % Low 65.0-75.0 [facility] Comment on above: Performed By: #### 7 0207 ####[facility] THB 14.0 g/dL Normal [facility] Comment on above: Performed By: #### 7 0207 ####[facility] LACTATE BLOODon 03-19-2019 Lactate [Moles/Vol] 2.6 mmol/L Critically high 0.5-2.2 [facility] Comment on above: Order Comment: No: D o not add to previous draw Result Comment: M-CR ITICAL RESULT(S) REVIEWED, CALLED TO AND READ BACK BY PEDRO MONTANO @213 03.19.19 Performed By: #### 5 7307 #### [facility] [address] [place] [address], [facility] MAGNESIUM BLOODon 03-19-2019 Magnesium [Mass/Vol] 2.4 mg/dL Normal 1.9-2.7 [facility] Comment on above: Order Comment: No: D o not add to previous draw Performed By: #### 5 7307 #### [facility] [address] [place] [address], [facility] Magnesium [Mass/Vol] 2.7 mg/dL Normal 1.9-2.7 [facility] Comment on above: Order Comment: R/O P ulmonary Edema Performed By: #### 0 0121, 99994, 30733 ####[facility] [place] [address], [facility] Magnesium [Mass/Vol] 2.9 mg/dL High 1.9-2.7 [facility] Comment on above: Performed By: #### 8 3533, 50032 #### [facility] [address] [facility] [address], [facility] PERFUSION BLOOD PANELon 03-01 BASE EXCESS -4.0 mmol/L Low -2.0-3.[address] [facility] Comment on above: Performed By: #### 8 6563, 84777 #### [facility] [address] [place] [address], [place] Glucose [Mass/Vol] 143 mg/dL High 70-105 [facility] Comment on above: Performed By: #### 8 5123, 81468 #### [facility] [address] [place] [address], [place] Hematocrit (Bld) [Volume fraction] 39 % Normal 38-51 [facility] Comment on above: Performed By: #### 8 5123, 16654 #### [facility] [address] [place] [address], [place] Hemoglobin (Bld) [Mass/Vol] 13.3 g/dL Normal 12.0-17.0 [facility] Comment on above: Performed By: #### 8 512, 97701 #### [facility] [address] [place] [address], [place] IONIZED CALCIUM 1.58 mmol/L Critically high 1.12-1.32 [facility] Comment on above: Performed By: #### 8 5123, 88213 #### [facility] [address] [place] [address], [place] Oxygen (Bld) [Partial pressure] 59.0 mm[Hg] Low 80.0-105.0 [facility] Comment on above: Performed By: #### 8 5123, 32436 #### [facility] [address] [place] [address], [place] PCO2 35.4 mmHg Normal 35.0-45.0 [facility] Comment on above: Performed By: #### 8 5123, 60642 #### [facility] [address] [place] [address], [place] pH (Bld) 7.37 [pH] Normal 7.35-7.45 [facility] Comment on above: Performed By: #### 8 5123, 52830 #### [facility] [address] [place] [address], [place] Potassium [Moles/Vol] 3.7 mmol/L Normal 3.5-4.9 [facility] Comment on above: Performed By: #### 8 5123, 99058 #### [facility] [address] [place] [address], [place] Sodium [Moles/Vol] 144 mmol/L Normal 138-146 [facility] Comment on above: Performed By: #### 8 5123, 23563 #### [facility] [address] [place] [address], [place] BASE EXCESS -5.0 mmol/L Low -2.0-3.[address] [facility] Comment on above: Performed By: #### 8 512, 21295 #### [facility] [address] [place] [address], [facility] Glucose [Mass/Vol] 158 mg/dL High 70-105 [facility] Comment on above: Performed By: #### 8 5123, 37315 #### [facility] [address] [place] [address], [place] Hematocrit (Bld) [Volume fraction] 41 % Normal 38-51 [facility] Comment on above: Performed By: #### 8 5123, 10518 #### [facility] [address] [place] [address], [place] Hemoglobin (Bld) [Mass/Vol] 13.9 g/dL Normal 12.0-17.0 [facility] Comment on above: Performed By: #### 8 5123, 18577 #### [facility] [address] [place] [address], [place] IONIZED CALCIUM 1.34 mmol/L High 1.12-1.32 [facility] Comment on above: Performed By: #### 8 512, 47829 #### [facility] [address] [place] [address], [place] Oxygen (Bld) [Partial pressure] 51.0 mm[Hg] Low 80.0-105.0 [facility] Comment on above: Performed By: #### 8 5123, 91431 #### [facility] [address] [place] [address], [place] PCO2 34.5 mmHg Low 35.0-45.0 [facility] Comment on above: Performed By: #### 8 5123, 84646 #### [facility] [address] [place] [address], [place] pH (Bld) 7.36 [pH] Normal 7.35-7.45 [facility] Comment on above: Performed By: #### 8 5123, 08932 #### [facility] [address] [place] [address], [place] Potassium [Moles/Vol] 4.2 mmol/L Normal 3.5-4.9 [facility] Comment on above: Performed By: #### 8 5123, 48367 #### [facility] [address] [place] [address], [place] Sodium [Moles/Vol] 142 mmol/L Normal 138-146 [facility] Comment on above: Performed By: #### 8 5123, 58857 #### [facility] [address] [place] [address], [place] BASE EXCESS -1.0 mmol/L Normal -2.0-3.[address] [facility] Comment on above: Performed By: #### 8 5123, 62401 #### [facility] [address] [place] [address], [place] Glucose [Mass/Vol] 163 mg/dL High 70-105 [facility] Comment on above: Performed By: #### 8 5123, 23349 #### [facility] [address] [place] [address], [place] Hematocrit (Bld) [Volume fraction] 42 % Normal 38-51 [facility] Comment on above: Performed By: #### 8 512, 23890 #### [facility] [address] [place] [address], [place] Hemoglobin (Bld) [Mass/Vol] 14.3 g/dL Normal 12.0-17.0 [facility] Comment on above: Performed By: #### 8 512, 64100 #### [facility] [address] [place] [address], [place] IONIZED CALCIUM 1.05 mmol/L Low 1.12-1.32 [facility] Comment on above: Performed By: #### 8 512, 54121 #### [facility] [address] [place] [address], [place] Oxygen (Bld) [Partial pressure] 368.0 mm[Hg] High 80.0-105.0 [facility] Comment on above: Performed By: #### 8 5123, 89182 #### [facility] [address] [place] [address], [place] PCO2 39.7 mmHg Normal 35.0-45.0 [facility] Comment on above: Performed By: #### 8 5123, 84785 #### [facility] [address] [place] [address], [place] pH (Bld) 7.39 [pH] Normal 7.35-7.45 [facility] Comment on above: Performed By: #### 8 512, 20333 #### [facility] [address] [place] [address], [place] Potassium [Moles/Vol] 3.9 mmol/L Normal 3.5-4.9 [facility] Comment on above: Performed By: #### 8 5123, 48235 #### [facility] [address] [place] [address], [place] Sodium [Moles/Vol] 145 mmol/L Normal 138-146 [facility] Comment on above: Performed By: #### 8 5123, 45644 #### [facility] [address] [place] [address], [place] BASE EXCESS -4.0 mmol/L Low -2.0-3.[address] [facility] Comment on above: Performed By: #### 8 5123, 21014 #### [facility] [address] [place] [address], [place] Glucose [Mass/Vol] 169 mg/dL High 70-105 [facility] Comment on above: Performed By: #### 8 5123, 84411 #### [facility] [address] [place] [address], [place] Hematocrit (Bld) [Volume fraction] 40 % Normal 38-51 [facility] Comment on above: Performed By: #### 8 5123, 31324 #### [facility] [address] [place] [address], [place] Hemoglobin (Bld) [Mass/Vol] 13.6 g/dL Normal 12.0-17.0 [facility] Comment on above: Performed By: #### 8 5123, 95328 #### [facility] [address] [place] [address], [place] IONIZED CALCIUM 1.37 mmol/L High 1.12-1.32 [facility] Comment on above: Performed By: #### 8 5123, 73278 #### [facility] [address] [place] [address], [place] Oxygen (Bld) [Partial pressure] 301.0 mm[Hg] High 80.0-105.0 [facility] Comment on above: Performed By: #### 8 5123, 26648 #### [facility] [address] [place] [address], [place] PCO2 36.1 mmHg Normal 35.0-45.0 [facility] Comment on above: Performed By: #### 8 5123, 02671 #### [facility] [address] [place] [address], [place] pH (Bld) 7.38 [pH] Normal 7.35-7.45 [facility] Comment on above: Performed By: #### 8 5123, 88822 #### [facility] [address] [place] [address], [place] Potassium [Moles/Vol] 4.9 mmol/L Normal 3.5-4.9 [facility] Comment on above: Performed By: #### 8 5123, 66434 #### [facility] [address] [place] [address], [place] Sodium [Moles/Vol] 137 mmol/L Low 138-146 [facility] Comment on above: Performed By: #### 8 5123, 76409 #### [facility] [address] [place] [address], [place] BASE EXCESS -3.0 mmol/L Low -2.0-3.[address] [facility] Comment on above: Performed By: #### 8 5123, 23128 #### [facility] [address] [place] [address], [place] Glucose [Mass/Vol] 174 mg/dL High 70-105 [facility] Comment on above: Performed By: #### 8 5123, 34033 #### [facility] [address] [place] [address], [place] Hematocrit (Bld) [Volume fraction] 45 % Normal 38-51 [facility] Comment on above: Performed By: #### 8 5123, 42412 #### [facility] [address] [place] [address], [place] Hemoglobin (Bld) [Mass/Vol] 15.3 g/dL Normal 12.0-17.0 [facility] Comment on above: Performed By: #### 8 5123, 97293 #### [facility] [address] [place] [address], [place] IONIZED CALCIUM 1.06 mmol/L Low 1.12-1.32 [facility] Comment on above: Performed By: #### 8 5123, 70320 #### [facility] [address] [place] [address], [place] Oxygen (Bld) [Partial pressure] 404.0 mm[Hg] High 80.0-105.0 [facility] Comment on above: Performed By: #### 8 5123, 34842 #### [facility] [address] [place] [address], [place] PCO2 42.4 mmHg Normal 35.0-45.0 [facility] Comment on above: Performed By: #### 8 5123, 36375 #### [facility] [address] [place] [address], [place] pH (Bld) 7.35 [pH] Normal 7.35-7.45 [facility] Comment on above: Performed By: #### 8 5123, 44267 #### [facility] [address] [place] [address], [place] Potassium [Moles/Vol] 4.7 mmol/L Normal 3.5-4.9 [facility] Comment on above: Performed By: #### 8 5123, 49961 #### [facility] [address] [place] [address], [place] Sodium [Moles/Vol] 141 mmol/L Normal 138-146 [facility] Comment on above: Performed By: #### 8 5123, 37909 #### [facility] [address] [place] [address], [place] BASE EXCESS -2.0 mmol/L Normal -2.0-3.[address] [facility] Comment on above: Performed By: #### 8 5123, 06193 #### [facility] [address] [place] [address], [place] Glucose [Mass/Vol] 184 mg/dL High 70-105 [facility] Comment on above: Performed By: #### 8 5123, 36629 #### [facility] [address] [place] [address], [place] Hematocrit (Bld) [Volume fraction] 46 % Normal 38-51 [facility] Comment on above: Performed By: #### 8 5123, 68703 #### [facility] [address] [place] [address], [place] Hemoglobin (Bld) [Mass/Vol] 15.6 g/dL Normal 12.0-17.0 [facility] Comment on above: Performed By: #### 8 5123, 43757 #### [facility] [address] [place] [address], [place] IONIZED CALCIUM 1.06 mmol/L Low 1.12-1.32 [facility] Comment on above: Performed By: #### 8 5123, 34836 #### [facility] [address] [place] [address], [place] Oxygen (Bld) [Partial pressure] 374.0 mm[Hg] High 80.0-105.0 [facility] Comment on above: Performed By: #### 8 5123, 75147 #### [facility] [address] [place] [address], [place] PCO2 43.3 mmHg Normal 35.0-45.0 [facility] Comment on above: Performed By: #### 8 5123, 78881 #### [facility] [address] [place] [address], [place] pH (Bld) 7.34 [pH] Low 7.35-7.45 [facility] Comment on above: Performed By: #### 8 5123, 84784 #### [facility] [address] [place] [address], [place] Potassium [Moles/Vol] 4.8 mmol/L Normal 3.5-4.9 [facility] Comment on above: Performed By: #### 8 5123, 92455 #### [facility] [address] [place] [address], [place] Sodium [Moles/Vol] 139 mmol/L Normal 138-146 [facility] Comment on above: Performed By: #### 8 5123, 82457 #### [facility] [address] [place] [address], [place] BASE EXCESS -2.0 mmol/L Normal -2.0-3.[address] [facility] Comment on above: Performed By: #### 8 5123, 60045 #### [facility] [address] [place] [address], [place] Glucose [Mass/Vol] 176 mg/dL High 70-105 [facility] Comment on above: Performed By: #### 8 5123, 76697 #### [facility] [address] [place] [address], [place] Hematocrit (Bld) [Volume fraction] 44 % Normal 38-51 [facility] Comment on above: Performed By: #### 8 5123, 03641 #### [facility] [address] [place] [address], [place] Hemoglobin (Bld) [Mass/Vol] 15.0 g/dL Normal 12.0-17.0 [facility] Comment on above: Performed By: #### 8 5123, 44885 #### [facility] [address] [place] [address], [place] IONIZED CALCIUM 1.07 mmol/L Low 1.12-1.32 [facility] Comment on above: Performed By: #### 8 5123, 41125 #### [facility] [address] [place] [address], [place] Oxygen (Bld) [Partial pressure] 284.0 mm[Hg] High 80.0-105.0 [facility] Comment on above: Performed By: #### 8 5123, 13387 #### [facility] [address] [place] [address], [place] PCO2 47.5 mmHg High 35.0-45.0 [facility] Comment on above: Performed By: #### 8 5123, 94803 #### [facility] [address] [place] [address], [place] pH (Bld) 7.32 [pH] Low 7.35-7.45 [facility] Comment on above: Performed By: #### 8 5123, 04678 #### [facility] [address] [place] [address], [place] Potassium [Moles/Vol] 4.8 mmol/L Normal 3.5-4.9 [facility] Comment on above: Performed By: #### 8 5123, 18861 #### [facility] [address] [place] [address], [place] Sodium [Moles/Vol] 139 mmol/L Normal 138-146 [facility] Comment on above: Performed By: #### 8 5123, 90909 #### [facility] [address] [place] [address], [place] BASE EXCESS -2.0 mmol/L Normal -2.0-3.[address] [facility] Comment on above: Performed By: #### 0 0121, 47164, 68016, 62551, 03679 #### [facility] [address] [place] [address], [place] Glucose [Mass/Vol] 166 mg/dL High 70-105 [facility] Comment on above: Performed By: #### 0 0121, 87041, 99806, 78732, 68815 #### [facility] [address] [place] [address], [place] Hematocrit (Bld) [Volume fraction] 45 % Normal 38-51 [facility] Comment on above: Performed By: #### 0 0121, 25096, 16157, 69537, 44478 #### [facility] [address] [place] [address], [place] Hemoglobin (Bld) [Mass/Vol] 15.3 g/dL Normal 12.0-17.0 [facility] Comment on above: Performed By: #### 0 0121, 92385, 38159, 50032, 32570 #### [facility] [address] [place] [address], [place] IONIZED CALCIUM 1.09 mmol/L Low 1.12-1.32 [facility] Comment on above: Performed By: #### 0 0121, 56148, 61544, 95710, 87507 #### [facility] [address] [place] [address], [place] Oxygen (Bld) [Partial pressure] 313.0 mm[Hg] High 80.0-105.0 [facility] Comment on above: Performed By: #### 0 0121, 28588, 95550, 27025, 23818 #### [facility] [address] [place] [address], [place] PCO2 47.7 mmHg High 35.0-45.0 [facility] Comment on above: Performed By: #### 0 0121, 13552, 10984, 43952, 23093 #### [facility] [address] [place] [address], [facility] pH (Bld) 7.32 [pH] Low 7.35-7.45 [facility] Comment on above: Performed By: #### 0 0121, 48646, 53226, 10076, 42894 #### [facility] [address] [place] [address], [place] Potassium [Moles/Vol] 4.4 mmol/L Normal 3.5-4.9 [facility] Comment on above: Performed By: #### 0 0121, 65400, 20046, 21765, 61458 #### [facility] [address] [place] [address], [place] Sodium [Moles/Vol] 140 mmol/L Normal 138-146 [facility] Comment on above: Performed By: #### 0 0121, 64529, 45015, 52607, 92270 #### [facility] [address] [place] [address], [place] BASE EXCESS -1.0 mmol/L Normal -2.0-3.[address] [facility] Comment on above: Performed By: #### 0 0121, 13145, 64256, 07433, 88437 #### [facility] [address] [place] [address], [place] Glucose [Mass/Vol] 146 mg/dL High 70-105 [facility] Comment on above: Performed By: #### 0 0121, 57961, 16967, 92920, 15491 #### [facility] [address] [place] [address], [place] Hematocrit (Bld) [Volume fraction] 45 % Normal 38-51 [facility] Comment on above: Performed By: #### 0 0121, 29127, 67468, 74184, 89897 #### [facility] [address] [place] [address], [facility] Hemoglobin (Bld) [Mass/Vol] 15.3 g/dL Normal 12.0-17.0 [facility] Comment on above: Performed By: #### 0 0121, 05129, 91162, 26596, 83243 #### [facility] [address] [place] [address], [facility] IONIZED CALCIUM 1.06 mmol/L Low 1.12-1.32 [facility] Comment on above: Performed By: #### 0 0121, 52442, 07938, 72287, 65506 #### [facility] [address] [place] [address], [facility] Oxygen (Bld) [Partial pressure] 319.0 mm[Hg] High 80.0-105.0 [facility] Comment on above: Performed By: #### 0 0121, 72567, 79537, 66955, 78133 #### [facility] [address] [place] [address], [facility] PCO2 50.9 mmHg High 35.0-45.0 [facility] Comment on above: Performed By: #### 0 0121, 35226, 75877, 45567, 32083 #### [facility] [address] [facility] [place] [address], [facility] pH (Bld) 7.32 [pH] Low 7.35-7.45 [facility] Comment on above: Performed By: #### 0 0121, 22612, 70879, 93980, 44781 #### [facility] [address] [place] [address], [facility] Potassium [Moles/Vol] 4.4 mmol/L Normal 3.5-4.9 [facility] Comment on above: Performed By: #### 0 0121, 85333, 30783, 88285, 15395 #### [facility] [address] [place] [address], [facility] Sodium [Moles/Vol] 138 mmol/L Normal 138-146 [facility] Comment on above: Performed By: #### 0 0121, 90105, 15182, 51417, 49357 #### [facility] [address] [place] [address], [place] BASE EXCESS 0.0 mmol/L Normal -2.0-3.0 [facility] Comment on above: Performed By: #### 0 0121, 74173, 30019, 75629, 82298 #### [facility] [address] [place] [address], [place] Glucose [Mass/Vol] 116 mg/dL High 70-105 [facility] Comment on above: Performed By: #### 0 0121, 62984, 70702, 87584, 65772 #### [facility] [address] [place] [address], [place] Hematocrit (Bld) [Volume fraction] 43 % Normal 38-51 [facility] Comment on above: Performed By: #### 0 0121, 79507, 42183, 79581, 90856 #### [facility] [address] [place] [address], [place] Hemoglobin (Bld) [Mass/Vol] 14.6 g/dL Normal 12.0-17.0 [facility] Comment on above: Performed By: #### 0 0121, 12736, 44226, 85621, 22403 #### [facility] [address] [place] [address], [facility] IONIZED CALCIUM 1.05 mmol/L Low 1.12-1.32 [facility] Comment on above: Performed By: #### 0 0121, 05284, 55639, 26210, 62831 #### [facility] [address] [place] [address], [place] Oxygen (Bld) [Partial pressure] 409.0 mm[Hg] High 80.0-105.0 [facility] Comment on above: Performed By: #### 0 0121, 46133, 20784, 99502, 28785 #### [facility] [address] [place] [address], [place] PCO2 44.9 mmHg Normal 35.0-45.0 [facility] Comment on above: Performed By: #### 0 0121, 05102, 03172, 66957, 17004 #### [facility] [address] [place] [address], [place] pH (Bld) 7.36 [pH] Normal 7.35-7.45 [facility] Comment on above: Performed By: #### 0 0121, 55990, 41429, 04311, 22427 #### [facility] [address] [place] [address], [place] Potassium [Moles/Vol] 4.5 mmol/L Normal 3.5-4.9 [facility] Comment on above: Performed By: #### 0 0121, 78679, 57485, 49508, 49877 #### [facility] [address] [place] [address], [place] Sodium [Moles/Vol] 138 mmol/L Normal 138-146 [facility] Comment on above: Performed By: #### 0 0121, 71247, 75378, 50329, 06768 #### [facility] [address] [place] [address], [place] BASE EXCESS 0.0 mmol/L Normal -2.0-3.0 [facility] Comment on above: Performed By: #### 0 0121, 72766, 83572, 11393, 05832 #### [facility] [address] [place] [address], [place] Glucose [Mass/Vol] 101 mg/dL Normal 70-105 [facility] Comment on above: Performed By: #### 0 0121, 61945, 26395, 79641, 08180 #### [facility] [address] [place] [address], [place] Hematocrit (Bld) [Volume fraction] 44 % Normal 38-51 [facility] Comment on above: Performed By: #### 0 0121, 46471, 87508, 78731, 01662 #### [facility] [address] [place] [address], [place] Hemoglobin (Bld) [Mass/Vol] 15.0 g/dL Normal 12.0-17.0 [facility] Comment on above: Performed By: #### 0 0121, 82872, 25822, 49529, 21372 #### [facility] [address] [place] [address], [place] IONIZED CALCIUM 1.02 mmol/L Low 1.12-1.32 [facility] Comment on above: Performed By: #### 0 0121, 60649, 34428, 93238, 77411 #### [facility] [address] [place] [address], [place] Oxygen (Bld) [Partial pressure] 516.0 mm[Hg] High 80.0-105.0 [facility] Comment on above: Performed By: #### 0 0121, 00674, 08497, 66836, 16530 #### [facility] [address] [place] [address], [place] PCO2 50.7 mmHg High 35.0-45.0 [facility] Comment on above: Performed By: #### 0 0121, 28179, 51746, 86360, 97377 #### [facility] [address] [place] [address], [place] pH (Bld) 7.33 [pH] Low 7.35-7.45 [facility] Comment on above: Performed By: #### 0 0121, 21093, 82244, 15074, 74594 #### [facility] [address] [place] [address], [place] Potassium [Moles/Vol] 4.1 mmol/L Normal 3.5-4.9 [facility] Comment on above: Performed By: #### 0 0121, 38013, 38012, 38869, 06773 #### [facility] [address] [place] [address], [place] Sodium [Moles/Vol] 137 mmol/L Low 138-146 [facility] Comment on above: Performed By: #### 0 0121, 96976, 34219, 76062, 82884 #### [facility] [address] [place] [address], [facility] Hematocrit (Bld) [Volume fraction] 43 % Normal 38-51 [facility] Comment on above: Performed By: #### 0 0121, 15173, 35203, 14994, 19865 #### [facility] [address] [place] [address], [facility] Hemoglobin (Bld) [Mass/Vol] 14.6 g/dL Normal 12.0-17.0 [facility] Comment on above: Performed By: #### 0 0121, 90159, 69341, 03615, 11140 #### [facility] [address] [place] [address], [place] Oxygen (Bld) [Partial pressure] 51.0 mm[Hg] Normal [facility] Comment on above: Performed By: #### 0 0121, 72219, 22022, 97459, 80828 #### [facility] [address] [place] [address], [place] BASE EXCESS -4.0 mmol/L Low -2.0-3.[address] [facility] Comment on above: Performed By: #### 0 0121, 44325, 14730, 18075, 24301 #### [facility] [address] [place] [address], [place] Glucose [Mass/Vol] 104 mg/dL Normal 70-105 [facility] Comment on above: Performed By: #### 0 0121, 97645, 84870, 55221, 32829 #### [facility] [address] [place] [address], [place] Hematocrit (Bld) [Volume fraction] 55 % High 38-51 [facility] Comment on above: Performed By: #### 0 0121, 66375, 16698, 93616, 07822 #### [facility] [address] [place] [address], [place] Hemoglobin (Bld) [Mass/Vol] 18.7 g/dL High 12.0-17.0 [facility] Comment on above: Performed By: #### 0 0121, 66109, 62618, 35095, 35148 #### [facility] [address] [place] [address], [place] IONIZED CALCIUM 1.24 mmol/L Normal 1.12-1.32 [facility] Comment on above: Performed By: #### 0 0121, 53154, 45248, 89015, 12933 #### [facility] [address] [place] [address], [place] Oxygen (Bld) [Partial pressure] 159.0 mm[Hg] High 80.0-105.0 [facility] Comment on above: Performed By: #### 0 0121, 99728, 14705, 52687, 26295 #### [facility] [address] [place] [address], [place] PCO2 48.7 mmHg High 35.0-45.0 [facility] Comment on above: Performed By: #### 0 0121, 22390, 70868, 81692, 17464 #### [facility] [address] [place] [address], [place] pH (Bld) 7.30 [pH] Low 7.35-7.45 [facility] Comment on above: Performed By: #### 0 0121, 24211, 87497, 97012, 27430 #### [facility] [address] [place] [address], [place] Potassium [Moles/Vol] 4.1 mmol/L Normal 3.5-4.9 [facility] Comment on above: Performed By: #### 0 0121, 80131, 45575, 95130, 41557 #### [facility] [address] [place] [address], [place] Sodium [Moles/Vol] 139 mmol/L Normal 138-146 [facility] Comment on above: Performed By: #### 0 0121, 04363, 98355, 50510, 30289 #### [facility] [address] [place] [address], [place] PHOSPHORUS BLOODon 9 Phosphate [Mass/Vol] 4.3 mg/dL Normal 2.5-5.0 [facility] Comment on above: Order Comment: R/O P ulmonary Edema Performed By: #### 0 0121, 75308, 87928 ####[facility] [place] [address], [place] POC GLUCOSE LABon 03-19-2019 Glucose [Mass/Vol] 115 mg/dL High 70-100 [facility] Comment on above: Performed By: #### 5 7307 #### [facility] [address] [place] [address], [place] Glucose [Mass/Vol] 145 mg/dL High 70-100 [facility] Comment on above: Performed By: #### 5 7307 #### [facility] [address] [place] [address], [facility] Glucose [Mass/Vol] 121 mg/dL High 70-100 [facility] Comment on above: Performed By: #### 8 5499 ####[facility] [place] [address], [facility] Glucose [Mass/Vol] 122 mg/dL High 70-100 [facility] Comment on above: Performed By: #### 8 5499 ####[facility] [place] [address], [facility] PORTABLE CHEST 1 VIEWon 03-01 PORTABLE CHEST 1 VIEW [facility] Department of Radiology [address] [place] [address] [id number] ======== Patient Name: TRACIE CRAIN : 1965 Sex: M Age: Race: NA Pt. Location: [id number] Patient Status: I Ordered Date: 03/19/2019 5:50:00 [...] the upper thoracic trachea in satisfactory position. [place]-Sher catheter, chest tubes and enteric tube appear [...] findings. Electronically signed by:Yenni Osuna. Transcribed by: [email or web address], User Resident: EMILIA SHERMAN Electronically Signed by: YENNI OSUNA @ 03/20/2019 05:05 PM I personally read this/these film(s) with this resident Normal [facility] Comment on above: Order Comment: << On admission If not done in ED>> No: Do not add to previous draw PORTABLE CHEST 1 VIEW [facility] Department of Radiology [address] [place] [id number] ======== Patient Name: TRACIE CRAIN : 1965 Sex: M Age: Race: NA Pt. Location: [id number] Patient Status: I Ordered Date: 03/19/2019 4:45:00 [...] right-sided chest tubes appear in satisfactory position. [place]-Sher catheter with tip projecting over the pulmonary [...] findings. Electronically signed by:Divya Collins. Transcribed by: [email or web address], User Resident: ANAI ALVARADO Electronically Signed by: DIVYA COLLINS @ 03/20/2019 11:00 AM I personally read this/these film(s) with this resident Normal [facility] Comment on above: Order Comment: << On admission If not done in ED>> No: Do not add to previous draw PORTABLE CHEST 1 VIEW [facility] Department of Radiology [address] [place] [id number] ======== Patient Name: TRACIE CRAIN : 1965 Sex: M Age: Race: NA Pt. Location: [id number] Patient Status: Wallace Ordered Date: 03/19/2019 3:55:00 PM Completed Date: [...] tubes are in place. No appreciable pneumothorax. [place]-Sher catheter in place likely terminating in the [...] disease most likely representing multifocal atelectasis. * [place]-Sher catheter likely terminating in the proximal right main pulmonary artery. * Trace pleural fluid bilaterally. Approved by:Pierce Sherman on 03/19/2019 5:04 PM EDT. I, Hyman Domenica, have reviewed the images and report and concur with these findings. Electronically signed by:Yenni Osuna. Transcribed by: [email or web address], User Resident: EMILIA SHERMAN Electronically Signed by: YENNI OSUNA @ 03/20/2019 05:04 PM I personally read this/these film(s) with this resident Normal [facility] Comment on above: Order Comment: << On admission If not done in ED>> No: Do not add to previous draw PROTHROMBIN TIMEon 9 INR Coag (PPP) [Relative time] 1.60 {INR} High 0.91-1.16 [facility] Comment on above: Order Comment: R/O [...] CHEST 1995;108:231S-246S. Performed By: #### 5 6101 ####[facility] PT Coag (PPP) [Time] 19.1 s High 12.3-14.8 [facility] Comment on above: Order Comment: R/O P ulmonary Edema Result Comment: ALL RESULTS MUST BE INTERPRETED WITH RESPECT TO BLOOD DRAWING ARTIFACT OR DILUTION ERROR OF ANTICOAGULANT AT THE TIME OF SAMPLING. Performed By: #### 5 6101 ####[facility] [place] [address], [facility] INR Coag (PPP) [Relative time] 1.68 {INR} High 0.91-1.16 [facility] Comment on above: Order Comment: If [...] RANGE. CHEST 1995;108:231S-246S. Performed By: #### 8 5123, 65141 #### [facility] [address] [place] [address], [facility] PT Coag (PPP) [Time] 19.9 s High 12.3-14.8 [facility] Comment on above: Order Comment: If no t done in ED No: Do not add to previous draw Result Comment: ALL RESULTS MUST BE INTERPRETED WITH RESPECT TO BLOOD DRAWING ARTIFACT OR DILUTION ERROR OF ANTICOAGULANT AT THE TIME OF SAMPLING. Performed By: #### 8 5123, 17945 #### [facility] [address] [place] [address], [place] INR Coag (PPP) [Relative time] 1.02 {INR} Normal 0.91-1.16 [facility] Comment on above: Order Comment: If [...] CHEST 1995;108:231S-246S. Performed By: #### 0 0121, 83236, 99703, 67569, 67915 #### [facility] [address] PT Coag (PPP) [Time] 13.4 s Normal 12.3-14.8 [facility] Comment on above: Order Comment: If no t done in ED No: Do not add to previous draw Result Comment: ALL RESULTS MUST BE INTERPRETED WITH RESPECT TO BLOOD DRAWING ARTIFACT OR DILUTION ERROR OF ANTICOAGULANT AT THE TIME OF SAMPLING. Performed By: #### 0 0121, 32412, 49330, 17073, 39374 #### [facility] [address] [place] [address], [facility] RBC'S 2 UNITSon 03-19-2019 CROSSMATCH INTERP 1 COMP Normal [facility] Comment on above: Performed By: #### 0 0121, 97032, 82812, 90669, 01847 #### [facility] [address] [place] [address], [facility] CROSSMATCH INTERP 2 COMP Normal [facility] Comment on above: Performed By: #### 0 0121, 57251, 54986, 13536, 13985 #### [facility] [address] [place] [address], [facility] PRODUCT CODE 1 E0332 Normal [facility] Comment on above: Performed By: #### 0 0121, 94057, 65146, 15869, 95363 #### [facility] [address] [place] [address], [facility] PRODUCT CODE 2 E0336 Normal [facility] Comment on above: Performed By: #### 0 0121, 79562, 70831, 52426, 63572 #### [facility] [address] [place] [address], [facility] PRODUCT STATUS 1 RE Normal [facility] Comment on above: Result Comment: Resu lt changed by IF on 03/19/2019 08:33. The previous value was XM. Result changed by IF on 03/19/2019 16:19. The previous value was IS. Result changed by IF on 03/20/2019 09:43. The previous value was XM. Result changed by IF on 03/20/2019 09:46. The previous value was XX. Performed By: #### 0 0121, 64593, 80756, 74888, 38780 #### [facility] [address] [place] [address], [facility] PRODUCT STATUS 2 RE Normal [facility] Comment on above: Result Comment: Resu lt changed by IF on 03/19/2019 08:33. The previous value was XM. Result changed by IF on 03/19/2019 16:19. The previous value was IS. Result changed by IF on 03/20/2019 09:43. The previous value was XM. Result changed by IF on 03/20/2019 11:11. The previous value was XX. Performed By: #### 0 0121, 26022, 72104, 03217, 06871 #### [facility] [address] [place] [address], [facility] UNIT ABO 1 O Normal [facility] Comment on above: Performed By: #### 0 0121, 35066, 51044, 38234, 51978 #### [facility] [address] [place] [address], [place] UNIT ABO 2 O Normal [facility] Comment on above: Performed By: #### 0 0121, 63949, 94932, 00470, 31137 #### [facility] [address] [place] [address], [facility] UNIT ID 1 [id number] Normal [facility] Comment on above: Performed By: #### 0 0121, 13670, 88235, 54430, 66272 #### [facility] [address] [place] [address], [facility] UNIT ID 2 [id number] Normal [facility] Comment on above: Performed By: #### 0 0121, 14551, 97498, 76954, 17754 #### [facility] [address] [place] [address], [place] UNIT RH 1 Negative Normal [facility] Comment on above: Performed By: #### 0 0121, 36863, 30181, 20379, 87576 #### [facility] [address] [place] [address], [place] UNIT RH 2 Negative Normal [facility] Comment on above: Performed By: #### 0 0121, 38201, 42468, 45470, 82358 #### [facility] [address] [place] [address], [facility] *MRSA/MSSA DNA NASALon 03-18 *MRSA/MSSA DNA NASAL Clinical Report: (D ) Specimen: NASAL SWAB Collected: 03/18/2019 17:05 Status: Final Last Updated: 03/19/2019 12:12 MSSA DNA (Final) Negative MRSA DNA (Final) Negative Normal [facility] Comment on above: Performed By: #### 8 5123, 65183 #### [facility] [address] [place] [address], [facility] APTTon 03-18-2019 aPTT Coag (Bld) [Time] 58.1 s High 25.0-35.0 [facility] Comment on above: Order Comment: << ON [...] OF HEPARIN. Performed By: #### 0 0121, 34915, 01550, 68971, 59367 #### [facility] [address] [place] [address], [facility] aPTT Coag (Bld) [Time] 67.7 s High 25.0-35.0 [facility] Comment on above: Order Comment: << ON [...] OF HEPARIN. Performed By: #### 0 0121, 90037, 53385, 36256, 89763 #### [facility] [address] [place] [address], [facility] aPTT Coag (Bld) [Time] 74.8 s Critically high 25.0-35.0 [facility] Comment on above: Order Comment: << [...] AT 0609. Performed By: #### 0 0121, 29323, 26744, 34599, 75887 #### [facility] [address] [facility] [place] [place] [address], [facility] BASIC METABOLIC PANELon - Calcium [Mass/Vol] 9.2 mg/dL Normal 8.6-10.3 [facility] Comment on above: Order Comment: << ON ADMISSION If not done in ED>> No: Do not add to previous draw Performed By: #### 0 0121, 90952, 84040, 50260, 68122 #### [facility] [address] [place] [address], [facility] Chloride [Moles/Vol] 105 mmol/L Normal 98-107 [facility] Comment on above: Order Comment: << ON ADMISSION If not done in ED>> No: Do not add to previous draw Performed By: #### 0 0121, 59032, 85439, 78138, 47056 #### [facility] [address] [place] [address], [place] CO2 [Moles/Vol] 27 mmol/L Normal 21-31 [facility] Comment on above: Order Comment: << ON ADMISSION If not done in ED>> No: Do not add to previous draw Performed By: #### 0 0121, 71713, 68288, 15487, 53539 #### [facility] [address] [place] [address], [place] Creatinine [Mass/Vol] 1.11 mg/dL Normal 0.70-1.30 [facility] Comment on above: Order Comment: << ON ADMISSION If not done in ED>> No: Do not add to previous draw Performed By: #### 0 0121, 87299, 82077, 69288, 45454 #### [facility] [address] [place] [address], [facility] GFR/1.73 sq M predicted among blacks MDRD (S/P/Bld) [Vol rate/Area] mL/min/{1.73_m2} Normal >60 [facility] Comment on above: Order Comment: << ON ADMISSION If not done in ED>> No: Do not add to previous draw Performed By: #### 0 0121, 14758, 65913, 27813, 40450 #### [facility] [address] [place] [address], [facility] GFR/1.73 sq M predicted among non-blacks MDRD (S/P/Bld) [Vol rate/Area] mL/min/{1.73_m2} Normal >60 [facility] Comment on above: Order Comment: << ON ADMISSION If not done in ED>> No: Do not add to previous draw Performed By: #### 0 0121, 96464, 84241, 55244, 86387 #### [facility] [address] [place] [address], [place] Glucose [Mass/Vol] 101 mg/dL High 70-100 [facility] Comment on above: Order Comment: << ON ADMISSION If not done in ED>> No: Do not add to previous draw Performed By: #### 0 0121, 76041, 59245, 78366, 94680 #### [facility] [address] [place] [address], [place] Potassium [Moles/Vol] 4.2 mmol/L Normal 3.5-5.1 [facility] Comment on above: Order Comment: << ON ADMISSION If not done in ED>> No: Do not add to previous draw Performed By: #### 0 0121, 52027, 94792, 40734, 39732 #### [facility] [address] [place] [address], [facility] Sodium [Moles/Vol] 136 mmol/L Normal 136-145 [facility] Comment on above: Order Comment: << ON ADMISSION If not done in ED>> No: Do not add to previous draw Performed By: #### 0 0121, 77113, 00827, 85056, 15095 #### [facility] [address] [place] [address], [facility] Urea nitrogen [Mass/Vol] 15 mg/dL Normal 7-25 [facility] Comment on above: Order Comment: << ON ADMISSION If not done in ED>> No: Do not add to previous draw Performed By: #### 0 0121, 84245, 31891, 48881, 26225 #### [facility] [address] [place] [address], [facility] CBC COMPLETE BLOOD COUNTon 0 - Erythrocyte distribution width (RBC) [Ratio] 12.8 % Normal 11.5-15.0 [facility] Comment on above: Order Comment: << ON ADMISSION If not done in ED>> No: Do not add to previous draw Performed By: #### 0 0121, 38160, 90099, 75009, 81449 #### [facility] [address] [place] [address], [facility] Hematocrit (Bld) [Volume fraction] 55.1 % High 39.0-50.0 [facility] Comment on above: Order Comment: << ON ADMISSION If not done in ED>> No: Do not add to previous draw Performed By: #### 0 0121, 25770, 83159, 54021, 10862 #### [facility] [address] Hemoglobin (Bld) [Mass/Vol] 17.5 g/dL High 13.0-17.0 [facility] Comment on above: Order Comment: << ON ADMISSION If not done in ED>> No: Do not add to previous draw Performed By: #### 0 0121, 81476, 78939, 28766, 53085 #### [facility] [address] [place] [address], [facility] MCH (RBC) [Entitic mass] 28.6 pg Normal 27.0-33.0 [facility] Comment on above: Order Comment: << ON ADMISSION If not done in ED>> No: Do not add to previous draw Performed By: #### 0 0121, 92686, 25399, 41301, 19667 #### [facility] [address] [facility] MCHC (RBC) [Mass/Vol] 31.8 g/dL Low 32.0-35.0 [facility] Comment on above: Order Comment: << ON ADMISSION If not done in ED>> No: Do not add to previous draw Performed By: #### 0 0121, 64773, 65531, 25525, 97992 #### [facility] [address] MCV (RBC) [Entitic vol] 90.0 fL Normal 82.0-98.0 [facility] Comment on above: Order Comment: << ON ADMISSION If not done in ED>> No: Do not add to previous draw Performed By: #### 0 0121, 09809, 15511, 30179, 28212 #### [facility] [address] [place] [address], [facility] Nucleated RBC/100 WBC (Bld) [Ratio] 0 % Normal 0-0 [facility] Comment on above: Order Comment: << ON ADMISSION If not done in ED>> No: Do not add to previous draw Performed By: #### 0 0121, 54351, 73330, 93795, 41402 #### [facility] [address] [facility] [place] [address], [facility] PLAT CNT 286 10*3/uL Normal 150-400 [facility] Comment on above: Order Comment: << ON ADMISSION If not done in ED>> No: Do not add to previous draw Performed By: #### 0 0121, 35887, 97690, 61918, 85792 #### [facility] [address] RBC (Bld) [#/Vol] 6.12 10*6/uL High 4.20-5.70 [facility] Comment on above: Order Comment: << ON ADMISSION If not done in ED>> No: Do not add to previous draw Performed By: #### 0 0121, 58304, 54763, 01046, 74127 #### [facility] [address] WBC (Bld) [#/Vol] 9.33 10*3/uL Normal 4.00-10.60 [facility] Comment on above: Order Comment: << ON ADMISSION If not done in ED>> No: Do not add to previous draw Performed By: #### 0 0121, 16215, 75369, 20363, 71633 #### [facility] [address] [facility]. [address] MAGNESIUM BLOODon 03-18-2019 Magnesium [Mass/Vol] 2.4 mg/dL Normal 1.9-2.7 [facility] Comment on above: Performed By: #### 0 0121, 50755, 91640, 72583, 06148 #### [facility] [address] [facility]. [address] TYPE AND SCREENon 03-18-2019 ABO INTERPRETATION O Normal [facility] Comment on above: Performed By: #### 0 0121, 23609, 22921, 18858, 90694 #### [facility] [address] [place] [address], [facility] RH INTERPRETATION Negative Normal [facility] Comment on above: Performed By: #### 0 0121, 28789, 12299, 00520, 39338 #### [facility] [address] [place] [address], [facility] UFH HEPARIN ASSAYon 03-18-20 19 UNFRACTIONATED HEPARIN 0.19 IU/mL Low 0.30-0.70 [facility] Comment on above: Order Comment: If no t done in ED No: Do not add to previous draw Result Comment: Estefania roxaban and Apixaban will interfere with the anti Xa assay used to monitor UFH and LMWH. Performed By: #### 0 0121, 20911, 30779, 02991, 32668 #### [facility] [address] UNFRACTIONATED HEPARIN 0.29 IU/mL Low 0.30-0.70 [facility] Comment on above: Order Comment: << ON ADMISSION If not done in ED>> No: Do not add to previous draw Result Comment: Estefania roxaban and Apixaban will interfere with the anti Xa assay used to monitor UFH and LMWH. Performed By: #### 0 0121, 26588, 13853, 63846, 51894 #### [facility] [address] [place] [address], [facility] UNFRACTIONATED HEPARIN 0.25 IU/mL Low 0.30-0.70 [facility] Comment on above: Result Comment: Estefania roxaban and Apixaban will interfere with the anti Xa assay used to monitor UFH and LMWH. Performed By: #### 0 0121, 94394, 82658, 07701, 96554 #### [facility] [address] [place] [address], [facility] URINALYSISon 03-18-2019 Appearance (U) CLEAR Normal CLEAR [facility] Comment on above: Order Comment: If no t done in ED No: Do not add to previous draw Performed By: #### 0 0121, 09899, 11801, 04304, 19509 #### [facility] [address] [place] [address], [place] Bilirubin [Mass/Vol] Negative Normal NEGATIVE [facility] Comment on above: Order Comment: If no t done in ED No: Do not add to previous draw Performed By: #### 0 0121, 19932, 63588, 86046, 34275 #### [facility] [address] [place] [address], [place] BLOOD Negative Normal NEGATIVE [facility] Comment on above: Order Comment: If no t done in ED No: Do not add to previous draw Performed By: #### 0 0121, 75701, 83679, 02554, 57835 #### [facility] [address] [place] [address], [place] Color (U) YELLOW Normal YELLOW [facility] Comment on above: Order Comment: If no t done in ED No: Do not add to previous draw Performed By: #### 0 0121, 24388, 29710, 10791, 72630 #### [facility] [address] [place] [address], [place] Glucose [Mass/Vol] Negative Normal NEGATIVE [facility] Comment on above: Order Comment: If no t done in ED No: Do not add to previous draw Performed By: #### 0 0121, 26905, 85988, 44598, 49277 #### [facility] [address] [place] [address], [place] KETONE Negative Normal NEGATIVE [facility] Comment on above: Order Comment: If no t done in ED No: Do not add to previous draw Performed By: #### 0 0121, 45720, 57987, 25880, 08820 #### [facility] [address] [place] [address], [place] LEUK RADHA Negative Normal NEGATIVE [facility] Comment on above: Order Comment: If no t done in ED No: Do not add to previous draw Performed By: #### 0 0121, 12558, 95092, 16588, 15385 #### [facility] [address] [place] [address], [facility] MICRO NOT DONE negative chemical reactions unless requested in original order Normal [facility] Comment on above: Order Comment: If no t done in ED No: Do not add to previous draw Performed By: #### 0 0121, 60733, 87261, 95116, 66562 #### [facility] [address] [place] [address], [place] Nitrite Ql (U) Negative Normal NEGATIVE [facility] Comment on above: Order Comment: If no t done in ED No: Do not add to previous draw Performed By: #### 0 0121, 23489, 46884, 31466, 42372 #### [facility] [address] [place] [address], [place] pH (Bld) 6.0 Normal 5.0-8.0 [facility] Comment on above: Order Comment: If no t done in ED No: Do not add to previous draw Performed By: #### 0 0121, 33156, 13777, 40307, 23463 #### [facility] [address] [place] [address], [place] Protein (U) [Mass/Vol] Negative Normal NEGATIVE [facility] Comment on above: Order Comment: If no t done in ED No: Do not add to previous draw Performed By: #### 0 0121, 73218, 57881, 35873, 37231 #### [facility] [address] [place] [address], [place] SPEC GRAV 1.017 Normal 1.015-1.020 [facility] Comment on above: Order Comment: If no t done in ED No: Do not add to previous draw Performed By: #### 0 0121, 93692, 26529, 97850, 93253 #### [facility] [address] [place] [address], [facility] APTTon 03-17-2019 aPTT Coag (Bld) [Time] 67.3 s High 25.0-35.0 [facility] Comment on above: Order Comment: No: [...] THIS PURPOSE. Performed By: #### 0 0121, 58360, 52666, 81863, 21399 #### [facility] [address] [place] [address], [facility] BASIC METABOLIC PANELon 02-28 Calcium [Mass/Vol] 9.1 mg/dL Normal 8.6-10.3 [facility] Comment on above: Order Comment: No: D o not add to previous draw Performed By: #### 0 0121, 84406, 01668, 57777, 76796 #### [facility] [address] [place] [id number], [facility] Chloride [Moles/Vol] 101 mmol/L Normal 98-107 [facility] Comment on above: Order Comment: No: D o not add to previous draw Performed By: #### 0 0121, 70392, 64088, 52842, 31757 #### [facility] [address] [place] [address], [facility] CO2 [Moles/Vol] 24 mmol/L Normal 21-31 [facility] Comment on above: Order Comment: No: D o not add to previous draw Performed By: #### 0 0121, 58525, 32858, 27500, 17823 #### [facility] [address] [place] [address], [facility] Creatinine [Mass/Vol] 1.02 mg/dL Normal 0.70-1.30 [facility] Comment on above: Order Comment: No: D o not add to previous draw Performed By: #### 0 0121, 00309, 23698, 04258, 42651 #### [facility] [address] [place] [address], [place] GFR/1.73 sq M predicted among blacks MDRD (S/P/Bld) [Vol rate/Area] mL/min/{1.73_m2} Normal >60 [facility] Comment on above: Order Comment: No: D o not add to previous draw Performed By: #### 0 0121, 74114, 57946, 95206, 27482 #### [facility] [address] [place] [id number], [facility] GFR/1.73 sq M predicted among non-blacks MDRD (S/P/Bld) [Vol rate/Area] mL/min/{1.73_m2} Normal >60 [facility] Comment on above: Order Comment: No: D o not add to previous draw Performed By: #### 0 0121, 55263, 07111, 58454, 52492 #### [facility] [address] [place] [address], [place] Glucose [Mass/Vol] 102 mg/dL High 70-100 [facility] Comment on above: Order Comment: No: D o not add to previous draw Performed By: #### 0 0121, 65992, 38979, 39421, 10408 #### [facility] [address] [place] [address], [place] Potassium [Moles/Vol] 3.7 mmol/L Normal 3.5-5.1 [facility] Comment on above: Order Comment: No: D o not add to previous draw Performed By: #### 0 0121, 73276, 65043, 99495, 06529 #### [facility] [address] [place] [id number], [facility] Sodium [Moles/Vol] 135 mmol/L Low 136-145 [facility] Comment on above: Order Comment: No: D o not add to previous draw Performed By: #### 0 0121, 57147, 53179, 04505, 27613 #### [facility] [address] [place] [address], [facility] Urea nitrogen [Mass/Vol] 18 mg/dL Normal 7-25 [facility] Comment on above: Order Comment: No: D o not add to previous draw Performed By: #### 0 0121, 15568, 16559, 77244, 14901 #### [facility] [address] [place] [address], [facility] CBC COMPLETE BLOOD COUNTon 0 - Erythrocyte distribution width (RBC) [Ratio] 12.9 % Normal 11.5-15.0 [facility] Comment on above: Order Comment: No: D o not add to previous draw Performed By: #### 0 0121, 10788, 39821, 17692, 81664 #### [facility] [address] [address], [facility] Hematocrit (Bld) [Volume fraction] 50.6 % High 39.0-50.0 [facility] Comment on above: Order Comment: No: D o not add to previous draw Performed By: #### 0 0121, 28112, 93323, 63458, 32865 #### [facility] [address] [place] [address], [facility] Hemoglobin (Bld) [Mass/Vol] 16.1 g/dL Normal 13.0-17.0 [facility] Comment on above: Order Comment: No: D o not add to previous draw Performed By: #### 0 0121, 96455, 08959, 79956, 87805 #### [facility] [address] [place] [address], [facility] MCH (RBC) [Entitic mass] 28.6 pg Normal 27.0-33.0 [facility] Comment on above: Order Comment: No: D o not add to previous draw Performed By: #### 0 0121, 44351, 00415, 40083, 29563 #### [facility] [address] MCHC (RBC) [Mass/Vol] 31.8 g/dL Low 32.0-35.0 [facility] Comment on above: Order Comment: No: D o not add to previous draw Performed By: #### 0 0121, 26281, 11039, 24204, 54592 #### [facility] [address] MCV (RBC) [Entitic vol] 90.0 fL Normal 82.0-98.0 [facility] Comment on above: Order Comment: No: D o not add to previous draw Performed By: #### 0 0121, 38735, 56492, 61686, 65294 #### [facility] [address] Nucleated RBC/100 WBC (Bld) [Ratio] 0 % Normal 0-0 [facility] Comment on above: Order Comment: No: D o not add to previous draw Performed By: #### 0 0121, 05167, 93785, 01405, 36353 #### [facility] [address] [place] [address], [facility] PLAT CNT 274 10*3/uL Normal 150-400 [facility] Comment on above: Order Comment: No: D o not add to previous draw Performed By: #### 0 0121, 39452, 98335, 73115, 48440 #### [facility] [address] [place] [address], [facility] RBC (Bld) [#/Vol] 5.62 10*6/uL Normal 4.20-5.70 [facility] Comment on above: Order Comment: No: D o not add to previous draw Performed By: #### 0 0121, 06142, 14143, 55531, 03046 #### [facility] [address] WBC (Bld) [#/Vol] 9.65 10*3/uL Normal 4.00-10.60 [facility] Comment on above: Order Comment: No: D o not add to previous draw Performed By: #### 0 0121, 59115, 50625, 20087, 81300 #### [facility] [address] Cardiovascular Lab Reporton 03-17-2019 Cardiovascular Lab Report [facility] Patient Name: Paras [facility] Jeri MR #: [id number] Department of Physician: Madan Parsons MAmanda Division of Service Date: 03/16/2019 Cardiology Birthdate: 1965 Adult Cardiovascular Room #: 3AB [id number] [facility] [address] [place] [address] Cardiovascular Laboratory Report CLINICAL PRESENTATION: The patient is a 53-year-old male, who was transferred from the [facility], due to his symptoms of shortness [...] guidance and a micropuncture access technique, a 6-Afghan sheath was placed in the right internal jugular vein. A Clark catheter was then advanced under fluoroscopic hemodynamic monitor to the right atrium. Pressure was obtained in the right atrium, right ventricle, pulmonary artery, pulmonary capillary wedge position. Oxygen saturations drawn from the pulmonary artery and the Nanci cardiac output and cardiac index were calculated. The Clark catheter was then removed. Next, a 6-Afghan Terumo Glidesheath slender was placed in the right radial artery. The radial anti-vasospasm cocktail of nitroglycerin 100 mcg was administered through the sheath. All catheter exchanges were made over the [employer] guidewire. A 5-Afghan Warren catheter was used to engage the left [...] RCA is dominant. Electronically Signed by: Krys aDy M.D. 03/25/2019 03:57 P Krys Day M.D. Date Dict: 03/16/2019/12:03 P/Krys Day M.D. Date Trans: 03/17/2019 05:03 A/bessie [id number] cc: Titus Villegas M.D. [address], [place] [facility] [address] Normal [facility] MAGNESIUM BLOODon 03-17-2019 Magnesium [Mass/Vol] 2.2 mg/dL Normal 1.9-2.7 [facility] Comment on above: Order Comment: No: D o not add to previous draw Performed By: #### 0 0121, 10536, 53009, 01361, 14330 #### [facility] [address] UFH HEPARIN ASSAYon 03-17-20 19 UNFRACTIONATED HEPARIN 0.30 IU/mL Normal 0.30-0.70 [facility] Comment on above: Result Comment: Fortine roxaban and Apixaban will interfere with the anti Xa assay used to monitor UFH and LMWH. Performed By: #### 0 0121, 52366, 33899, 36365, 86601 #### [facility] [address] [place] [address], [facility] APTTon 03-16-2019 aPTT Coag (Bld) [Time] 63.7 s High 25.0-35.0 [facility] Comment on above: Order Comment: No: D [...] OF HEPARIN. Performed By: #### 0 0121, 16440, 71424, 58872, 31718 #### [facility] [address] aPTT Coag (Bld) [Time] 87.5 s Critically high 25.0-35.0 [facility] Comment on above: Order Comment: No: D [...] OF HEPARIN. Performed By: #### 0 0121, 33934, 07526, 05672, 23223 #### [facility] [address] Cardiovascular Lab Reporton 03-16-2019 Cardiovascular Lab Report [facility] Patient Name: Paras [facility] Jeri MR #: [id number] Department of Physician: Ilan Danielson MD Division of Service Date: 03/16/2019 Cardiology Birthdate: 1965 Adult Cardiovascular Room #: 3AB [id number] [place] [address] Cardiovascular Laboratory Report PROCEDURE: Transesophageal echocardiogram and cardioversion. INDICATION: Atrial fibrillation. PROCEDURE IN DETAIL: An informed consent was obtained from the patient after explaining indications, risks, benefits, and alternatives. The patient understood and agreed and signed the consent form. 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 [address] [place] [facility] [address] Normal [facility] ERYTHROPOIETIN [id number] 03-16 ERYTHROPOIETIN 7 mU/mL Normal 4-27 [facility] Comment on above: Order Comment: << [...] may benefit from therapy with recombinant EPO ([facility] [id number]). Performed by [employer], [address] [place] [id number] [email or web address], Jann Somers MD - Lab. Director UF HEPARIN ASSAYon 03-16-20 19 UNFRACTIONATED HEPARIN 0.43 IU/mL Normal 0.30-0.70 [facility] Comment on above: Result Comment: Fortine roxaban and Apixaban will interfere with the anti Xa assay used to monitor UFH and LMWH. Performed By: #### 0 0121, 55170, 65482, 85172, 42711 #### [facility] [address] [place] [address], [facility] UNFRACTIONATED HEPARIN 0.53 IU/mL Normal 0.30-0.70 [facility] Comment on above: Result Comment: Estefania roxaban and Apixaban will interfere with the anti Xa assay used to monitor UFH and LMWH. Performed By: #### 0 0121, 22434, 37851, 50461, 74099 #### [facility] [address] [place] [address], [facility] APTTon 03-15-2019 aPTT Coag (Bld) [Time] 74.0 s Critically high 25.0-35.0 [facility] Comment on above: Order Comment: No: D [...] AT 2127 Performed By: #### 0 0121, 92906, 03010, 18533, 78939 #### [facility] [address] [place] [address], [facility] aPTT Coag (Bld) [Time] 84.1 s Critically high 25.0-35.0 [facility] Comment on above: Order Comment: << On [...] OF HEPARIN. Performed By: #### 0 0121, 85827, 24690, 77896, 21850 #### [facility] [address] [facility] [place] [address], [facility] aPTT Coag (Bld) [Time] 59.2 s High 25.0-35.0 [facility] Comment on above: Order Comment: << On [...] THIS PURPOSE. Performed By: #### 0 0121, 33407, 12416, 38089, 42231 #### [facility] [address] [address], [facility] BASIC METABOLIC PANELon 06-1 Calcium [Mass/Vol] 9.9 mg/dL Normal 8.6-10.3 [facility] Comment on above: Order Comment: << On admission If not done in ED>> No: Do not add to previous draw Performed By: #### 0 0121, 75605, 77617, 69980, 03048 #### [facility] [address] [place] [address], [facility] Chloride [Moles/Vol] 101 mmol/L Normal 98-107 [facility] Comment on above: Order Comment: << On admission If not done in ED>> No: Do not add to previous draw Performed By: #### 0 0121, 02979, 34266, 49098, 43640 #### [facility] [address] [place] [address], [facility] CO2 [Moles/Vol] 25 mmol/L Normal 21-31 [facility] Comment on above: Order Comment: << On admission If not done in ED>> No: Do not add to previous draw Performed By: #### 0 0121, 36531, 19088, 63793, 66464 #### [facility] [address] [place] [address], [facility] Creatinine [Mass/Vol] 1.02 mg/dL Normal 0.70-1.30 [facility] Comment on above: Order Comment: << On admission If not done in ED>> No: Do not add to previous draw Performed By: #### 0 0121, 10988, 11244, 20427, 66280 #### [facility] [address] [place] [address], [facility] GFR/1.73 sq M predicted among blacks MDRD (S/P/Bld) [Vol rate/Area] mL/min/{1.73_m2} Normal >60 [facility] Comment on above: Order Comment: << On admission If not done in ED>> No: Do not add to previous draw Performed By: #### 0 0121, 47558, 98336, 56413, 65082 #### [facility] [address] [place] [address], [place] GFR/1.73 sq M predicted among non-blacks MDRD (S/P/Bld) [Vol rate/Area] mL/min/{1.73_m2} Normal >60 [facility] Comment on above: Order Comment: << On admission If not done in ED>> No: Do not add to previous draw Performed By: #### 0 0121, 99331, 59004, 14755, 89011 #### [facility] [address] [place] [address], [place] Glucose [Mass/Vol] 100 mg/dL Normal 70-100 [facility] Comment on above: Order Comment: << On admission If not done in ED>> No: Do not add to previous draw Performed By: #### 0 0121, 03802, 11010, 45913, 34208 #### [facility] [address] [place] [address], [place] Potassium [Moles/Vol] 4.0 mmol/L Normal 3.5-5.1 [facility] Comment on above: Order Comment: << On admission If not done in ED>> No: Do not add to previous draw Performed By: #### 0 0121, 76757, 33393, 38369, 44494 #### [facility] [address] [place] [address], [place] Sodium [Moles/Vol] 135 mmol/L Low 136-145 [facility] Comment on above: Order Comment: << On admission If not done in ED>> No: Do not add to previous draw Performed By: #### 0 0121, 50352, 88303, 55792, 90153 #### [facility] [address] [place] [address], [place] Urea nitrogen [Mass/Vol] 24 mg/dL Normal 7-25 [facility] Comment on above: Order Comment: << On admission If not done in ED>> No: Do not add to previous draw Performed By: #### 0 0121, 43022, 38967, 05199, 83213 #### [facility] [address] CBC COMPLETE BLOOD COUNTon 0 - Erythrocyte distribution width (RBC) [Ratio] 13.1 % Normal 11.5-15.0 [facility] Comment on above: Order Comment: << On admission If not done in ED>> No: Do not add to previous draw Performed By: #### 0 0121, 45692, 50356, 56760, 13504 #### [facility] [address] Hematocrit (Bld) [Volume fraction] 53.6 % High 39.0-50.0 [facility] Comment on above: Order Comment: << On admission If not done in ED>> No: Do not add to previous draw Performed By: #### 0 0121, 95869, 92031, 61782, 51104 #### [facility] [address] [place] [address], [facility] Hemoglobin (Bld) [Mass/Vol] 17.4 g/dL High 13.0-17.0 [facility] Comment on above: Order Comment: << On admission If not done in ED>> No: Do not add to previous draw Performed By: #### 0 0121, 38722, 91953, 56287, 70166 #### [facility] [address] [place] [address], [facility] MCH (RBC) [Entitic mass] 28.6 pg Normal 27.0-33.0 [facility] Comment on above: Order Comment: << On admission If not done in ED>> No: Do not add to previous draw Performed By: #### 0 0121, 93530, 05489, 04064, 86604 #### [facility] [address] MCHC (RBC) [Mass/Vol] 32.5 g/dL Normal 32.0-35.0 [facility] Comment on above: Order Comment: << On admission If not done in ED>> No: Do not add to previous draw Performed By: #### 0 0121, 10050, 06254, 75931, 56391 #### [facility] [address] MCV (RBC) [Entitic vol] 88.0 fL Normal 82.0-98.0 [facility] Comment on above: Order Comment: << On admission If not done in ED>> No: Do not add to previous draw Performed By: #### 0 0121, 88143, 82388, 43175, 23788 #### [facility] [address] Nucleated RBC/100 WBC (Bld) [Ratio] 0 % Normal 0-0 [facility] Comment on above: Order Comment: << On admission If not done in ED>> No: Do not add to previous draw Performed By: #### 0 0121, 84452, 33741, 61173, 93206 #### [facility] [address] PLAT CNT 286 10*3/uL Normal 150-400 [facility] Comment on above: Order Comment: << On admission If not done in ED>> No: Do not add to previous draw Performed By: #### 0 0121, 53126, 96597, 48013, 39839 #### [facility] [address] [place] [address], [facility] RBC (Bld) [#/Vol] 6.09 10*6/uL High 4.20-5.70 [facility] Comment on above: Order Comment: << On admission If not done in ED>> No: Do not add to previous draw Performed By: #### 0 0121, 60252, 96120, 61777, 63047 #### [facility] [address] [place] [address], [facility] WBC (Bld) [#/Vol] 10.49 10*3/uL Normal 4.00-10.60 [facility] Comment on above: Order Comment: << On admission If not done in ED>> No: Do not add to previous draw Performed By: #### 0 0121, 02020, 03216, 96918, 20225 #### [facility] [address] [place], [place] [address] [place] [address] LIPID PROFILEon 03-15-2019 Cholesterol [Mass/Vol] 140 mg/dL Normal 120-200 [facility] Comment on above: Order Comment: << On admission If not done in ED>> No: Do not add to previous draw Result Comment: CHOL ESTEROL REFERENCE RANGE: 20 YEARS AND OLDER CARDIOVASCULAR RISK Less than 200 mg/dl Low Risk 200 to 239 mg/dl Borderline Risk 240 mg/dl and greater High Risk Performed By: #### 0 0121, 16645, 11125, 67614, 89387 #### [facility] [address] Cholesterol in HDL [Mass/Vol] 38 mg/dL Normal 23-92 [facility] Comment on above: Order Comment: << On [...] High Risk Performed By: #### 0 0121, 12289, 34231, 55808, 31789 #### [facility] [address] [place] [address], [facility] Cholesterol in LDL [Mass/Vol] 88 mg/dL Normal 0-130 [facility] Comment on above: Order Comment: << On admission If not done in ED>> No: Do not add to previous draw Result Comment: LDL IS A CALCULATION LDL IS ONLY VALID IF THE TRIG IS LESS THAN 400. Performed By: #### 0 0121, 01769, 25580, 59654, 84109 #### [facility] [address] [place] [address], [facility] Cholesterol.total/Ch olesterol in HDL [Mass ratio] 3.7 {ratio} Normal .0-4.5 [facility] Comment on above: Order Comment: << On admission If not done in ED>> No: Do not add to previous draw Performed By: #### 0 0121, 54422, 85737, 74913, 33486 #### [facility] [address] NON-HDL CHOLESTEROL 102 mg/dL Normal [facility] Comment on above: Order Comment: << On admission If not done in ED>> No: Do not add to previous draw Performed By: #### 0 0121, 15589, 92738, 33023, 69644 #### [facility] [address] Triglyceride [Mass/Vol] 70 mg/dL Normal 40-149 [facility] Comment on above: Order Comment: << On admission If not done in ED>> No: Do not add to previous draw Result Comment: TRIG LYCERIDE REFERENCE RANGE: 20 YEARS AND OLDER CARDIOVASCULAR RISK LESS THAN 150 mg/dl LOW RISK 150 TO 199 mg/dl BORDERLINE RISK 200 mg/dl AND GREATER HIGH RISK Performed By: #### 0 0121, 55347, 27843, 59776, 42594 #### [facility] [address] [place] [address], [facility] VLDL CHOL 14 mg/dL Normal 0-40 [facility] Comment on above: Order Comment: << On admission If not done in ED>> No: Do not add to previous draw Performed By: #### 0 0121, 77899, 45871, 50337, 44728 #### [facility] [address] TROPONIN-Ion 03-15-2019 Troponin I.cardiac [Mass/Vol] 0.01 ng/mL Normal 0.00-0.04 [facility] Comment on above: Order Comment: << On admission If not done in ED>> No: Do not add to previous draw Result Comment: REFE RENCE RANGES: 0.00 - 0.04 ng/ml NORMAL 0.05 - 0.50 ng/ml INDETERMINATE > 0.50 ng/ml CONSISTENT WITH AN M.I. Performed By: #### 0 0121, 04018, 91807, 42356, 62601 #### [facility] [address] [facility] [address] UFH HEPARIN ASSAYon 03-15-20 19 UNFRACTIONATED HEPARIN 0.62 IU/mL Normal 0.30-0.70 [facility] Comment on above: Order Comment: No: D o not add to previous draw Result Comment: Fortine roxaban and Apixaban will interfere with the anti Xa assay used to monitor UFH and LMWH. Performed By: #### 0 0121, 68524, 51511, 99231, 82902 #### [facility] [address] [facility] [place] [address], [facility] UNFRACTIONATED HEPARIN 0.92 IU/mL Critically high 0.30-0.70 [facility] Comment on above: Result Comment: Fortine roxaban and Apixaban will interfere with the anti Xa assay used to monitor UFH and LMWH. RESULTS CHECKED AND CALLED. ACCURATELY READ BACK BY DAXA MONTEJO RN @ 1309 Performed By: #### 0 0121, 22230, 73033, 93954, 33315 #### [facility] [address] [place] [address], [facility] UNFRACTIONATED HEPARIN 0.90 IU/mL Critically high 0.30-0.70 [facility] Comment on above: Result Comment: Fortine roxaban and Apixaban will interfere with the anti Xa assay used to monitor UFH and LMWH. RESULTS CHECKED AND CALLED. ACCURATELY READ BACK BY DAXA MONTEJO RN @ 0894 Performed By: #### 0 0121, 86736, 97723, 11455, 88202 #### [facility] [address] APTTon 03-14-2019 aPTT Coag (Bld) [Time] 32.8 s Normal 25.0-35.0 [facility] Comment on above: Order Comment: No: D [...] PURPOSE. Performed By: #### 5 7307 #### [address] BNP (B-TYPE NATRIURETIC PEPT PACHECO)on 03-14-2019 Natriuretic peptide B (Bld) [Mass/Vol] 112 pg/mL High 0-100 [facility] Comment on above: Order Comment: If no t done in ED No: Do not add to previous draw Result Comment: Give n the appropriate clinical setting a BNP result of >100 pg/mL indicates congestive heart failure. Performed By: #### 8 5123, 76293 #### [facility] [address] CBC W/DIFFon 03-14-2019 ABS BASOPHILS 0.1 10*3/uL Normal 0.0-0.2 [facility] Comment on above: Order Comment: If no t done in ED No: Do not add to previous draw Performed By: #### 5 0103 #### [facility] [address] ABS IMM GRANS 0.1 10*3/uL Normal 0.0-0.2 [facility] Comment on above: Order Comment: If no t done in ED No: Do not add to previous draw Performed By: #### 5 0103 #### [facility] [address] [place] [address], [facility] ABS NEUTROPHILS 7.1 10*3/uL Normal 1.6-7.6 [facility] Comment on above: Order Comment: If no t done in ED No: Do not add to previous draw Performed By: #### 5 0103 #### [facility] [address] [place] [address], [facility] Basophils/100 WBC (Bld) 1.0 % Normal 0.0-1.0 [facility] Comment on above: Order Comment: If no t done in ED No: Do not add to previous draw Performed By: #### 5 0103 #### [facility] [address] [place] [address], [facility] Eosinophils (Bld) [#/Vol] 0.3 10*3/uL Normal 0.0-0.5 [facility] Comment on above: Order Comment: If no t done in ED No: Do not add to previous draw Performed By: #### 5 0103 #### [facility] [address] [place] [address], [facility] Eosinophils/100 WBC (Bld) 2.8 % Normal 0.0-6.0 [facility] Comment on above: Order Comment: If no t done in ED No: Do not add to previous draw Performed By: #### 5 0103 #### [facility] [address] [place] [address], [facility] Erythrocyte distribution width (RBC) [Ratio] 13.2 % Normal 11.5-15.0 [facility] Comment on above: Order Comment: If no t done in ED No: Do not add to previous draw Performed By: #### 5 0103 #### [facility] [address] [place] [id number], [facility] Hematocrit (Bld) [Volume fraction] 53.8 % High 39.0-50.0 [facility] Comment on above: Order Comment: If no t done in ED No: Do not add to previous draw Performed By: #### 5 0103 #### [facility] [address] [place] [address], [facility] Hemoglobin (Bld) [Mass/Vol] 17.2 g/dL High 13.0-17.0 [facility] Comment on above: Order Comment: If no t done in ED No: Do not add to previous draw Performed By: #### 5 0103 #### [facility] [address] [place] [address], [facility] IMMATURE GRANS 0.5 % Normal 0.0-1.0 [facility] Comment on above: Order Comment: If no t done in ED No: Do not add to previous draw Performed By: #### 5 0103 #### [facility] [address] [place] [address], [facility] Lymphocytes (Bld) [#/Vol] 2.4 10*3/uL Normal 1.2-4.0 [facility] Comment on above: Order Comment: If no t done in ED No: Do not add to previous draw Performed By: #### 5 0103 #### [facility] [address] [place] [address], [facility] Lymphocytes/100 WBC (Bld) 21.0 % Normal 20.0-45.0 [facility] Comment on above: Order Comment: If no t done in ED No: Do not add to previous draw Performed By: #### 5 0103 #### [facility] [address] [place] [address], [place] MCH (RBC) [Entitic mass] 28.9 pg Normal 27.0-33.0 [facility] Comment on above: Order Comment: If no t done in ED No: Do not add to previous draw Performed By: #### 5 0103 #### [facility] [address] [place] [address], [facility] MCHC (RBC) [Mass/Vol] 32.0 g/dL Normal 32.0-35.0 [facility] Comment on above: Order Comment: If no t done in ED No: Do not add to previous draw Performed By: #### 5 0103 #### [facility] [address] [place] [id number], [facility] MCV (RBC) [Entitic vol] 90.4 fL Normal 82.0-98.0 [facility] Comment on above: Order Comment: If no t done in ED No: Do not add to previous draw Performed By: #### 5 0103 #### [facility] [address] [place] [id number], [facility] Monocytes (Bld) [#/Vol] 1.4 10*3/uL High 0.1-1.0 [facility] Comment on above: Order Comment: If no t done in ED No: Do not add to previous draw Performed By: #### 5 0103 #### [facility] [address] [place] [id number], [facility] MONOS 12.2 % High 5.0-12.0 [facility] Comment on above: Order Comment: If no t done in ED No: Do not add to previous draw Performed By: #### 5 0103 #### [facility] [address] [place] [id number], [facility] Neutrophils/100 WBC (Bld) 62.5 % Normal 40.0-72.0 [facility] Comment on above: Order Comment: If no t done in ED No: Do not add to previous draw Performed By: #### 5 0103 #### [facility] [address] [place] [id number], [facility] Nucleated RBC/100 WBC (Bld) [Ratio] 0 % Normal 0-0 [facility] Comment on above: Order Comment: If no t done in ED No: Do not add to previous draw Performed By: #### 5 0103 #### [facility] [address] [place] [address], [facility] PLAT CNT 321 10*3/uL Normal 150-400 [facility] Comment on above: Order Comment: If no t done in ED No: Do not add to previous draw Performed By: #### 5 0103 #### [facility] [address] [place] [address], [facility] RBC (Bld) [#/Vol] 5.95 10*6/uL High 4.20-5.70 [facility] Comment on above: Order Comment: If no t done in ED No: Do not add to previous draw Performed By: #### 5 0103 #### [facility] [address] [place] [address], [facility] WBC (Bld) [#/Vol] 11.32 10*3/uL High 4.00-10.60 [facility] Comment on above: Order Comment: If no t done in ED No: Do not add to previous draw Performed By: #### 5 0103 #### [facility] [address] [place] [address], [facility] COMP METABOLIC PANELon 03-14 Albumin [Mass/Vol] 4.3 g/dL Normal 3.5-5.7 [facility] Comment on above: Order Comment: << On admission If not done in ED>> No: Do not add to previous draw Performed By: #### 0 0121, 70246, 67989, 52977, 92926 #### [facility] [address] [place] [address], [facility] ALKALINE PHOSPH 59 IU/L Normal 34-104 [facility] Comment on above: Order Comment: << On admission If not done in ED>> No: Do not add to previous draw Performed By: #### 0 0121, 85606, 54701, 46372, 59771 #### [facility] [address] [place] [address], [place] ALT [Catalytic activity/Vol] 21 U/L Normal 7-52 [facility] Comment on above: Order Comment: << On admission If not done in ED>> No: Do not add to previous draw Performed By: #### 0 0121, 35097, 43891, 67109, 52356 #### [facility] [address] [place] [address], [place] AST [Catalytic activity/Vol] 26 U/L Normal 13-39 [facility] Comment on above: Order Comment: << On admission If not done in ED>> No: Do not add to previous draw Performed By: #### 0 0121, 29182, 72147, 88877, 37594 #### [facility] [address] [place] [address], [place] Bilirubin [Mass/Vol] 1.1 mg/dL High 0.3-1.0 [facility] Comment on above: Order Comment: << On admission If not done in ED>> No: Do not add to previous draw Performed By: #### 0 0121, 88106, 48461, 79315, 29035 #### [facility] [address] [place] [address], [place] Calcium [Mass/Vol] 10.5 mg/dL High 8.6-10.3 [facility] Comment on above: Order Comment: << On admission If not done in ED>> No: Do not add to previous draw Performed By: #### 0 0121, 55543, 72620, 93516, 82035 #### [facility] [address] [place] [address], [place] Chloride [Moles/Vol] 98 mmol/L Normal 98-107 [facility] Comment on above: Order Comment: << On admission If not done in ED>> No: Do not add to previous draw Performed By: #### 0 0121, 70645, 22724, 24331, 64117 #### [facility] [address] [place] [address], [facility] CO2 [Moles/Vol] 31 mmol/L Normal 21-31 [facility] Comment on above: Order Comment: << On admission If not done in ED>> No: Do not add to previous draw Performed By: #### 0 0121, 57767, 24114, 96884, 86661 #### [facility] [address] [place] [address], [facility] Creatinine [Mass/Vol] 1.36 mg/dL High 0.70-1.30 [facility] Comment on above: Order Comment: << On admission If not done in ED>> No: Do not add to previous draw Performed By: #### 0 0121, 84411, 64205, 53967, 46067 #### [facility] [address] [place] [address], [facility] GFR/1.73 sq M predicted among blacks MDRD (S/P/Bld) [Vol rate/Area] mL/min/{1.73_m2} Normal >60 [facility] Comment on above: Order Comment: << On admission If not done in ED>> No: Do not add to previous draw Performed By: #### 0 0121, 78907, 55175, 60734, 38624 #### [facility] [address] [place] [address], [facility] GFR/1.73 sq M predicted among non-blacks MDRD (S/P/Bld) [Vol rate/Area] 55 ml/min/1.73sq m Abnormal >60 [facility] Comment on above: Order Comment: << On admission If not done in ED>> No: Do not add to previous draw Performed By: #### 0 0121, 75598, 81042, 15742, 56236 #### [facility] [address] [place] [address], [place] Glucose [Mass/Vol] 81 mg/dL Normal 70-100 [facility] Comment on above: Order Comment: << On admission If not done in ED>> No: Do not add to previous draw Performed By: #### 0 0121, 99199, 63482, 86971, 86577 #### [facility] [address] [place] [address], [place] Potassium [Moles/Vol] 3.8 mmol/L Normal 3.5-5.1 [facility] Comment on above: Order Comment: << On admission If not done in ED>> No: Do not add to previous draw Performed By: #### 0 0121, 27266, 04130, 61815, 21981 #### [facility] [address] [place] [address], [facility] Protein [Mass/Vol] 7.4 g/dL Normal 6.0-8.3 [facility] Comment on above: Order Comment: << On admission If not done in ED>> No: Do not add to previous draw Performed By: #### 0 0121, 66282, 85202, 09218, 18986 #### [facility] [address] [place] [address], [place] Sodium [Moles/Vol] 138 mmol/L Normal 136-145 [facility] Comment on above: Order Comment: << On admission If not done in ED>> No: Do not add to previous draw Performed By: #### 0 0121, 10669, 41565, 25009, 85054 #### [facility] [address] [place] [address], [place] Urea nitrogen [Mass/Vol] 26 mg/dL High 7-25 [facility] Comment on above: Order Comment: << On admission If not done in ED>> No: Do not add to previous draw Performed By: #### 0 0121, 63468, 54377, 89419, 98424 #### [facility] [address] [place] [address], [place] FREE T4on 03-14-2019 Free T4 [Mass/Vol] 1.18 ng/dL Normal 0.71-1.85 [facility] Comment on above: Order Comment: If no t done in ED No: Do not add to previous draw Performed By: #### 0 0121, 73031, 89640, 70520, 75547 #### [facility] [address] [place] [address], [facility] HEMOGLOBIN A1Con 03-14-2019 HbA1c (Bld) [Mass fraction] 103 mg/dL Normal 70-126 [facility] Comment on above: Order Comment: If no t done in ED No: Do not add to previous draw Performed By: #### 8 5123, 27922 #### [facility] [address] [place] [address], [facility] HbA1c (Bld) [Mass fraction] 5.2 % Normal 4.0-6.0 [facility] Comment on above: Order Comment: If no t done in ED No: Do not add to previous draw Performed By: #### 8 5123, 76228 #### [facility] [address] [place] [address], [facility] History and Physicalon 03-14 History and Physical MR#: [id number] [facility] Pt. Name: Argelia Crain Admitted: 03/14/2019 Date of : 1965 Attending Physician: Dimitry Lyles M.D. Room #: [facility] [id number] Discharge Date: HISTORY AND PHYSICAL CHIEF COMPLAINT: Atrial fibrillation and bilateral lower extremity swelling. HISTORY OF PRESENT ILLNESS: Mr. Whitt is a 53-year-old male with the past medical history of depression and GERD, who was transferred from [facility] for atrial fibrillation and congestive heart failure. The patient states that he has been complaining of progressively worsening bilateral lower extremity swelling for the last four months. The patient states that he has never had bilateral lower extremity swelling like this in the past. The patient was [facility] and was sent to [facility]. At [facility], EKG showed atrial fibrillation with RVR. Chest x-ray showed bilateral pulmonary venous congestion. The patient was admitted for one day at [facility] and was started on metoprolol 75 mg twice a day and Eliquis. The patient was also diuresed with Lasix and put out around 2.8 L of urine. An echocardiogram was done at [facility], which showed a reduced ejection fraction, [...] drug use. 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 FAMILY HISTORY: Father [...] he received metoprolol 75 mg b.i.d. at [facility]. His heart rate is currently in the 80s to 90s. Will start him on metoprolol 12.5 mg BID. The patient received a dose of Eliquis today this morning at [facility], will discontinue Eliquis and start him on heparin drip in the evening around 10 p.m. His TSH and T4 were normal at [facility]. If the patient does not convert back to normal sinus rhythm, the patient will have GERMAN/cardioversion on Saturday. 2. Acute systolic CHF exacerbation: An echocardiogram at [facility] showed reduced ejection fraction. The patient was diuresed with Lasix 40 mg IV twice a day at [place] and diuresed around 2.8 L. Will start [...] Lyles M.D. Date Trans: 03/14/2019 01:33 P/bessie TORRES_JN:[id number] Normal [facility] MAGNESIUM BLOODon 03-14-2019 Magnesium [Mass/Vol] 2.4 mg/dL Normal 1.9-2.7 [facility] Comment on above: Order Comment: << ON ADMISSION If not done in ED>> No: Do not add to previous draw Performed By: #### 0 0121, 57392, 26942, 72547, 80317 #### [address] PORTABLE CHEST 1 VIEWon 02-28 PORTABLE CHEST 1 VIEW [facility] Department of Radiology [address] [place] [id number] ======== Patient Name: ARGELIA CRAIN : 1965 Sex: M Age: Race: NA Pt. Location: [address] [place] [address] Patient Status: I Ordered Date: 03/14/2019 10:35:00 [...] findings. Electronically signed by:Yenni Osuna. Transcribed by: [email or web address], User Resident: KAREEM LIAO Electronically Signed by: YENNI OSUNA @ 03/14/2019 04:53 PM I personally read this/these film(s) with this resident Normal [facility] Comment on above: Order Comment: R/O P ulmonary Edema TROPONIN-Ion 03-14-2019 Troponin I.cardiac [Mass/Vol] 0.00 ng/mL Normal 0.00-0.04 [facility] Comment on above: Order Comment: << On admission If not done in ED>> No: Do not add to previous draw Result Comment: REFE RENCE RANGES: 0.00 - 0.14 ng/ml NEGATIVE 0.15 - 0.25 ng/ml INDETERMINATE > 0.25 ng/ml INDICATIVE OF AN M.I. Performed By: #### 0 0121, 87869, 23543, 42609, 08087 #### [facility] [address] [facility]. [address] Troponin I.cardiac [Mass/Vol] 0.01 ng/mL Normal 0.00-0.04 [facility] Comment on above: Order Comment: No: D o not add to previous draw Result Comment: REFE RENCE RANGES: 0.00 - 0.04 ng/ml NORMAL 0.05 - 0.50 ng/ml INDETERMINATE > 0.50 ng/ml CONSISTENT WITH AN M.I. Performed By: #### 0 0121, 87270, 38229, 34593, 84107 #### [facility] [address] [place] [address], [facility] TSH3on 03-14-2019 TSH 3RD GENERATION 2.05 uIU/mL Normal 0.34-5.60 [facility] Comment on above: Order Comment: TSH3 with Reflex canceled. TSH3 ordered. Performed By: #### 0 0121, 78787, 50972, 06698, 61075 #### [facility] [address] [place] [address], [facility] CBC With Platelet No Differe ntialon 03-04-2018 Erythrocyte distribution width Auto Ratio (RBC) 13.9 % Normal 11.5-14.5 [facility] Erythrocytes (RBC) 5.34 10*6/uL Normal 4.70-6.10 [facility] Hematocrit (HCT) 49.8 % Normal 42.0-52.0 [facility] Hemoglobin mass conc (Bld) 16.4 g/dL Normal 14.0-18.0 [facility] MCH 30.8 pg Normal 27.0-31.3 [facility] MCHC mass conc (RBC) 33.0 % Normal 33.0-37.0 [facility] MCV 93.3 fL Normal 80.0-100.0 [facility] Platelets 281 10*3/uL Normal 130-400 [facility] WBC (Leukocytes) 9.3 10*3/uL Normal 4.8-10.8 [facility] Comprehensive Metabolic Pane gian 03-04-2018 Alanine aminotransferase (ALT) 20 U/L Normal 0-41 [facility] Albumin 4.6 g/dL Normal 3.9-4.9 [facility] Alkaline phosphatase (ALP) 56 U/L Normal 35-104 [facility] Anion gap 18 mmol/L Critically high 7-13 [facility] Aspartate aminotransferase (AST) 18 U/L Normal 0-40 [facility] Bilirubin (total) 0.7 mg/dL Normal 0.0-1.2 [facility] Calcium 9.4 mg/dL Normal 8.6-10.2 [facility] Chloride 103 mmol/L Normal 98-107 [facility] CO2 20 mmol/L Low 22-29 [facility] Creatinine 0.78 mg/dL Normal 0.70-1.20 [facility] eGFR (black) mL/min/{1.73_m2} Normal >60 [facility] Comment on above: Result Comment: >60 mL/min/1.73m2 EGFR, calc. for ages 18 and older using theMDRD formula (not corrected for weight), is valid for stablerenal function. eGFR (MDRD) mL/min/{1.73_m2} Normal >60 [facility] Comment on above: Result Comment: >60 mL/min/1.73m2 EGFR, calc. for ages 18 and older using theMDRD formula (not corrected for weight), is valid for stablerenal function. Globulin 2.7 g/dL Normal 2.3-3.5 [facility] Glucose mass conc 91 mg/dL Normal 74-109 [facility] Potassium molar conc 4.1 mmol/L Normal 3.5-5.1 [facility] Protein 7.3 g/dL Normal 6.4-8.1 [facility] Sodium 141 mmol/L Normal 132-144 [facility] Urea nitrogen 15 mg/dL Normal 6-20 [facility] Hemoglobin A1con 03-04-2018 Hemoglobin A1c/Hemoglobin.total mass fraction (Bld) 5.5 % Normal 4.8-5.9 [facility] Lipid Panelon 03-04-2018 Cholesterol 167 mg/dL Normal 0-199 [facility] Comment on above: Result Comment: ATP III Cholesterol classification is Desirable. HDL Cholesterol 47 mg/dL Normal 40-59 [facility] Comment on above: Result Comment: ATP III HDL Cholesterol Classification is Desirable.Expected Values:Males: >55 = No Risk 35-55 = Moderate Risk <35 = High RiskFemales: >65 = No Risk 45-65 = Moderate Risk <45 = High RiskNCEP Guidelines: Third Report January 2001>59 = negative risk factor for CHD<40 = major risk factor for CHD LDL Cholesterol 99 mg/dL Normal 0-129 [facility] Comment on above: Result Comment: ATP III LDL Classification is Optimal. Triglyceride 105 mg/dL Normal 0-200 [facility] Comment on above: Result Comment: ATP III Triglycerides Classification is Normal. Prostate Specific Ag Screeno n 03-04-2018 Prostate Specific Ag Screen 2.25 ng/mL Normal 0.00-3.89 [facility] Comment on above: Result Comment: When the Total PSA is between 3.00 and 10.00 ng/mL, considerrequesting a Free PSA to aid in diagnosis. TSH w/out Reflexon 8 Thyroid stimulating hormone (TSH) 2.550 uIU/mL Normal 0.270-4.20 [facility] Thyroxine Freeon 03-04-2018 Thyroxine Free 1.54 ng/dL Normal 0.93-1.70 [facility] Vital Signs Date Time Vital Sign Value Performing Clinician Jimmiei litisabela 03-21-2019 15:41-0400 Respiratory rate 16 /min TITUS VILLEGAS [facility] Comment on above: Performed By: #### 0 0121, 90263, 43370, 17781, 91181 #### [facility] [address] [place] [address], [facility] 03-21-2019 06:18-0400 Respiratory rate 16 /min TITUS VILLEGAS [facility] Comment on above: Performed By: #### 0 0121, 07950, 96258, 78717, 81779 #### [facility] [address] [place] [address], [facility] 03-20-2019 15:18-0400 Respiratory rate 16 /min TITUS V[place]LEGAS [facility] Comment on above: Performed By: #### 0 0121, 54482, 12400, 75762, 52465 #### [facility] [address] [place] [address], [facility] 03-20-2019 06:10-0400 Respiratory rate 16 /min TITUS V[place]LEGAS [facility] Comment on above: Performed By: #### 0 0121, 07049, 67050, 57279, 30270 #### [facility] [address] [place] [address], [facility] 03-20-2019 01:22-0400 Respiratory rate 16 /min TITUS V[place]LEGAS [facility] Comment on above: Performed By: #### 0 0121, 88097, 15707, 69221, 55807 #### [facility] [address] [place] [address], [facility] 03-19-2019 22:02-0400 Respiratory rate 16 /min TITUS V[place]LEGAS [facility] Comment on above: Performed By: #### 5 7307 #### [facility] [address] [place] [address], [facility] 03-19-2019 20:06-0400 Respiratory rate 16 /min TITUS VILLEGAS [facility] Comment on above: Performed By: #### 8 4511, 12764 ####[facility] [place] [address], [facility] 03-19-2019 18:48-0400 Respiratory rate 16 /min TITUS V[place]LEGAS [facility] Comment on above: Order Comment: R/O P ulmonary Edema Performed By: #### 8 4511, 89355 ####[facility] BRIGHTRU ARGUETA.[address] Encounters Encounter Date Encounter Type Care Provider Facility Start: 10-23-2023 End: 10-23-2023 ambulatory [facility] Start: 04-08-2023 End: 04-08-2023 ambulatory [facility] Start: 02-11-2023 End: 02-11-2023 ambulatory [facility] Start: 02-05-2023 End: 02-06-[address] VIET SALAS Facility:[facility] Start: 12-19-2022 End: 12-20-[address] VIET SALAS Facility:[facility] Start: 11-19-2022 End: 11-19-2022 ambulatory [facility] Start: 11-09-2022 End: 11-10-[address] [...] abnormal findings DR TITUS VILLEGAS . [facility] Start: 04-05-2022 End: 04-06-[address] TITUS VILLEGAS . Facility:[facility] Start: 04-05-2022 End: 04-06-2022 Encounter for general adult medical examination without abnormal findings DR TITUS VILLEGAS . Facility:[facility] Start: 03-08-2022 End: 03-09-[address] MELIDA CUELLAR Facility:[facility] Start: 05-12-2019 End: 05-13-2019 Patient encounter procedure ILAN DANIELSON Facility:[facility] Start: 03-14-2019 End: 03-27-2019 Evaluation and management of inpatient TITUS VILLEGAS Facility:[facility] Procedures Date Procedure Procedure Detail Performing Clinician Start: 04-05-[address] MELIDA CUELLAR Comment on above: Performed By: #### P [facility] ####[facility] [address] [place], [place] [id number] Beckham Start: 03-19-2019 DESTRUCTION OF CONDU CTION [...] on above: Performed By: #### 0 [id number], [id number], [id number], [id number] #### [facility] [address] [place] [address], [facility] Start: 03-16-2019 MEASURE CARDIAC SAMP L \T\ PRESSURE, BILATERAL, PERC KRYSCRISTAL DAY Start: 03-16-2019 FLUOROSCOPY OF LEFT HEART USING OTHER CONTRAST KRYS DAY Start: 03-16-2019 FLUOROSCOPY OF MULTI PLE CORONARY ARTERIES USING OTH CONTRAST KRYS GREENEPTA Start: 03-16-2019 [facility] of Cardi ac Rhythm, Single ILAN DANIELSON Payers Date Payer Category Payer Unknown [id number] 2.16.8 [id number] 1965 Unknown [id number] 2.16.8 [id number] 1965 Unknown [id number] 2.16.84 [id number] 1965 Unknown [id number] 2.16.84 0.1.122460.3.579.2.593 1964 Unknown [id number] 2.16.84 0.1.378742.3.579.2.593 1964 Unknown [id number] 2.16.84 0.1.540677.3.579.2.593 1964 Unknown [id number] 2.16.84 0.1.151802.3.579.2.593 1964 Unknown [id number] 2.16.84 0.1.624675.3.579.2.593 1964 Unknown [id number] 2.16.84 0.1.720400.3.579.2.593 1964 Unknown [id number] 2.16.84 0.1.296865.3.579.2.593 1964 Unknown [id number] 2.16.84 0.1.555493.3.579.2.593 1964 Unknown [id number] 2.16.84 0.1.428116.3.579.2.593 1964 Unknown [id number] 2.16.84 0.1.099480.3.579.2.593 1964 Unknown [id number] 2.16.84 0.1.864424.3.579.2.593 1964 Unknown [id number] 2.16.84 0.1.354786.3.579.2.593 1964 Unknown [id number] 2.16.84 0.1.282403.3.579.2.593 1964 Unknown [id number] 2.16.84 0.1.735664.3.579.2.593 1965 Unknown [id number] 2.16.84 0.1.005700.3.579.2.593 1960 Self-pay 1960 Unknown [id number] Progress note 10-23-2023 Note Date & Type Note Facility 10-23-2023 Note [facility] Subjective Tracie Crain is a 58 y.o. [...] When compared with ECG of 21-MAR-2019 20:42, CO interval has decreased, Vent. rate has increased [...] consistent with deco (more content not included)... [facility] Progress note 04-08-2023 Note Date & Type Note Facility 04-08-2023 Note [facility] - [facility] Subjective Tracie Crain is a 57 [...] When compared with ECG of 21-MAR-2019 20:42, CO interval has decreased, Vent. rate has increased [...] has been o (more content not included)... [facility] Progress note 02-11-2023 Note Date & Type Note Facility 02-11-2023 Note [facility] Subjective Tracie Crain is a 57 [...] When compared with ECG of 21-MAR-2019 20:42, CO interval has decreased, Vent. rate has increased [...] sinus rhythm a (more content not included)... [facility] Progress note 11-19-2022 Note Date & Type Note Facility 11-19-2022 Note [facility] Subjective Tracie Crain is a 57 [...] Use Topics Alcohol use: Not Currently HPI rTacie is seen in follow-up. Visit of 04/27/2019: [...] When compared with ECG of 21-MAR-2019 20:42, CO interval has decreased, Vent. rate has increased [...] no lightheadedness. His (more content not included)... [facility] Clinical Note 11-29-2020 Note Date & Type [...] vaccine, inactivated - Not Given Patient Refuses [facility] Comment on above: Result Comment: Elec tronically [...] Records Found Hospital Course Note MR#: [id number] [facility] Pt. Name: Tracie Crain Admitted: 03/14/2019 Discharged: 03/27/2019 Date of : 1965 Physician: Timbo Black MD DISCHARGE SUMMARY HISTORY: This is a 53-year-old male who was transferred from [facility] for further management of new-onset atrial fibrillation and systolic heart failure. Over the past 2 weeks, he had been having symptoms of lower extremity swelling. He denied chest pain and was very short of breath according to the . At [facility], he was noted to have severe pulmonary venous congestion and was transferred to [facility] after echocardiogram revealed reduced left ventricular systolic [...] section and content) DATE CREATED AUTHOR 03/18/2018 [facility] DATE CREATED AUTHOR AUTHOR'S ORGANIZ ATION 03/02/2020 [facility] [place] [facility] DATE CREATED AUTHOR AUTHOR'S ORGANIZ ATION 02/12/2021 [facility] DATE CREATED AUTHOR AUTHOR'S ORGANIZ ATION 02/10/2023 [facility] DATE CREATED AUTHOR AUTHOR'S ORGANIZ ATION 10/24/2023 [facility] FOR RECORDS PERTAINING TO PATIENTS WHO [...] BE BASED ON THE PRIMARY CLINICAL RECORDS. [facility]. provides no warranty or guarantee of the accuracy or completeness of information in this document.
--- NOTE | 2024-01-23 07:30 | CA_ITS ---
Patient Name: TRACIE KOCH MR#: [id number] : 1965 Exam Date: 01/23/2024 Ordering Doctor: DR VIET LUEVANO M.D. ECHOCARDIOGRAM REPORT PROCEDURE: CA ECHO DOPPLER COMPLETE INDICATIONS: Pulmonary hypertension, 30 mm Physio-ring, CryoMAZE, PFO closure, 40mm SCARLET clip COMPARISON: None. DESCRIPTION: COMPLETE ECHOCARDIOGRAM Real-time transthoracic echocardiography with 2D, M-mode, spectral and color flow Doppler performed. QUALITY: Technical quality was good. 75 , 310#, BSA 2.64 m2, BP 104/70 LEFT VENTRICLE: Normal chamber size. Normal left ventricular wall thickness. LV EF: Global left ventricular systolic function is normal; visually estimated ejection fraction is 55 to 60%. D-shaped septum consistent with right ventricular pressure and/or volume overload. DIASTOLIC: Unable to assess diastolic function. ATRIAL SEPTUM: Visually appears intact. LEFT ATRIUM: Severe dilatation. RIGHT ATRIUM: Severe dilatation. RIGHT VENTRICLE: Severe dilatation. Decreased right ventricular systolic function. TRICUSPID VALVE: Normal mobility and thickness. Severe regurgitation. Doppler studies reveal severely (>60) elevated right sided pressures. RVSP 75 mmHg MITRAL VALVE: Trivial mitral regurgitation. Annuloplasty ring is seen in the mitral position with elevated Doppler flow, Vmax 2.12 m/sec, mean gradient of 6.4 mmHg with heart rate of 81. AORTIC VALVE: Normal trileaflet appearance. Thickened aortic valve. Normal leaflet mobility. No evidence of aortic valve stenosis. No aortic regurgitation. AORTIC ROOT: Normal diameter and appearance. PULMONIC VALVE: Normal thickness and mobility. No stenosis. No regurgitation. PERICARDIUM: No evidence of pericardial effusion. IVC: IVC is dilated (3.2 cm) with no collapse. CONCLUSION: 1. Global left ventricular systolic function is normal; visually estimated ejection fraction is 55 to 60% 2. The right ventricle is severely dilated with decreased systolic function 3. Severe biatrial enlargement 4. Severe tricuspid regurgitation 5. Severely elevated right ventricular systolic pressure; RVSP is 75 mmHg 6. Mitral annuloplasty ring is seen; elevated velocities and mean gradient of 6.4 mmHg is seen Adult Echocardiography Procedure Report Left Ventricle LVEDD (3.7 - 5.6 cm): 4.30 cm LVESD (2.2 - 4.0 cm): 2.86 cm LVIVS thickness (0.6 - 1.2 cm): 0.97 cm LVPW thickness (0.5 - 1.0 cm): 1.04 cm LVOT Max Gradient: 4.30 mm[Hg] LVOT Area (cm2): 1.04 m/s Peak Velocity (LVOT): 1.04 m/s Mean Velocity (LVOT): 0.71 m/s LVOT Diameter 2.38 cm Left Atrium LA Volume Index (2D A2C): 52.55 ml/m2 Left Atrium Systolic Dimension: 5.22 cm Mitral Valve MV E to A Ratio: 2.20 Mitral Valve A-Wave Peak Velocity: 0.54 m/s Mitral Valve E-Wave Peak Velocity: 1.18 m/s Right Ventricle Aorta AO Root Diam: 3.52 cm Aortic Valve AoV Area (Peak Kane): 4.44 cm2, 4.44 cm2 AoV Area (VTI): 4.10 cm2, 4.10 cm2 Peak Velocity(Antegrade Flow): 1.04 m/s Peak Gradient(Antegrade Flow): 4.34 mm[Hg] Mean Velocity(Antegrade Flow): 0.68 m/s Mean Gradient(Antegrade Flow): 2.12 mm[Hg] Velocity Time Integral: 23.50 cm Tricuspid Valve Peak Velocity (Regurgitant Flow): 3.50 m/s, 3.30 m/s, 3.42 m/s, 3.55 m/s, 3.88 m/s Pulmonic Valve Peak Gradient: 3.74 mm[Hg], 3.47 mm[Hg] Right Atrium Right Atrium Systolic Pressure: 102.44 ml, 102.44 ml Dictated by: Piotr Jenkins M.D. on 01/23/2024 at 15:41 Approved by: Piotr Jenkins M.D. on 01/23/2024 at 15:46
== END 2024-01-23 07:26 | disposition home or self-care (01) ==
LOC: CARD 07:25
PROVIDERS: PCP Family Medicine; Visit Provider Internal Medicine Interventional Cardiology
DX: I27.20 Pulmonary hypertension, unspecified (principal)
CPT/HCPCS: 93306

== ENCOUNTER 2024-02-21 12:15 | Outpatient (OUT) | payer BC, SELFPAY ==
[2024-02-21 13:00] LABS: Basophils Absolute Auto 0.1 10^3/uL (0.0-0.1); Basophils Percent Auto 1.1 % (0.2-2.0); Eosinophils Absolute Auto 0.3 10^3/uL (0.0-0.7); Eosinophils Percent Auto 2.9 % (0.9-7.0); Hemoglobin 14.7 g/dL (14.0-18.0); Immature Granulocytes Abs Auto 0.05 10^3/uL (0.00-0.03); Immature Granulocytes Pct Auto 0.5 % (0.0-0.5); Lymphocytes Absolute Auto 2.9 10^3/uL (1.2-3.8); Lymphocytes Percent Auto 25.7 % (20.5-60.0); Mean Corpuscular Hemoglobin 28.9 pg (25.9-34.0); Mean Corpuscular Volume 90.4 fL (80.0-94.0); Mean Platelet Volume 9.8 fL (9.5-13.5); Monocytes Absolute Auto 1.2 10^3/uL (0.3-0.8); Monocytes Percent Auto 10.8 % (1.7-12.0); Neutrophils Absolute Auto 6.5 10^3/uL (1.4-6.5); Platelet Count 265 10^3/uL (150-450); Red Blood Count 5.09 10^6/uL (4.70-6.10); Red Cell Distribution Width 13.7 % (11.0-15.0); White Blood Count 11.1 10^3/uL (4.0-11.0)
[2024-02-21 13:04] LABS: Anion Gap 12.5; BUN Creatinine Ratio 15.3; Calcium 8.9 mg/dL (8.5-10.1); Carbon Dioxide 29.1 mmol/L (21.0-32.0); Chloride 102 mmol/L (98-107); Estimated GFR (African America >60 (>=60); Estimated GFR (Non-African Ame >60 (>=60); Glucose 111 mg/dL (74-106); Potassium 3.6 mmol/L (3.5-5.1); Sodium 140 mmol/L (136-145)
== END 2024-02-21 12:16 | disposition home or self-care (01) ==
LOC: LAB 12:16
PROVIDERS: PCP Family Medicine; Visit Provider Internal Medicine Interventional Cardiology
DX: I27.20 Pulmonary hypertension, unspecified (principal); I36.1 Nonrheumatic tricuspid (valve) insufficiency
CPT/HCPCS: 36415; 80048; 85025

== ENCOUNTER 2024-03-05 11:44 | Outpatient (OUT) | payer BC, SELFPAY ==
[2024-03-05 12:31] LABS: Anion Gap 10.7; BUN Creatinine Ratio 15.3; Calcium 9.4 mg/dL (8.5-10.1); Carbon Dioxide 29.9 mmol/L (21.0-32.0); Chloride 102 mmol/L (98-107); Estimated GFR (African America >60 (>=60); Estimated GFR (Non-African Ame 60 (>=60); Glucose 102 mg/dL (74-106); Potassium 3.6 mmol/L (3.5-5.1); Sodium 139 mmol/L (136-145)
== END 2024-03-05 11:45 | disposition home or self-care (01) ==
LOC: LAB 11:45
PROVIDERS: PCP Family Medicine; Visit Provider Internal Medicine Interventional Cardiology
DX: I50.22 Chronic systolic (congestive) heart failure (principal); Q21.10 Atrial septal defect, unspecified
CPT/HCPCS: 36415; 80048

== ENCOUNTER 2024-04-24 12:08 | Outpatient (OUT) | payer BC, SELFPAY ==
--- OUTSIDE RECORDS SUMMARY | 2024-04-24 12:16 | XMS_ITS | CCD ---
Author Organization [facility] Care Team Providers Care Heading Repairer Name Role Phone TITUS VILLEGAS Referring Unavailable SELF, REFERRED Primary Care Unavailable ANABELL, TIMBO Attending Unavailable JIAN SYED Admitting Unavailable SC Procedure Practitioner Unavailab KRYS De [place] Surgeon Unavailable SC Procedure Practitioner Unavailab le ILAN CABA Surgeon Unavailable SC Procedure Practitioner Unavailab rishabh BLACK, TIMBO Surgeon Unavailable SC Procedure Practitioner Unavailab MAY De [place] Surgeon Unavailable ILAN CABA Attending Unavailable AIME CABAHRIK Admitting Unavailable ANABELL, TIMBO Referring Unavailable TITUS [...] Primary Care Unavailable KAI RUFFIN Attending Unavailable LALYKAI Admitting Unavailable MOUKARBEL, DR LLANOS Consulting Unavailable [...] DR MELIDA Owen Admitting Unavailable MOUKARBEL, VIET Admitting Unavailable MOUKARBEL, VIET Attending Unavailable MOUKARBEL, VIET Referring Unavailable MOUKARBEL, VIET Attending Unavailable MOUKARBEL, VIET [...] failure] Onset: 06-27-2022 Chronic Heart valve disorders (3 sources) Rheumatic tricuspid insufficiency; Translations: [Nonrheumatic tricuspid (valve) insufficiency] Onset: 11-15-2022 Chronic Pulmonary heart disease (2 sources) Pulmonary hypertension, unspecified; Translations: [Pulmonary hypertension, unspecified] Onset: 01-28-2024 Chronic Residual codes; unclassified (3 sources) Other specified postprocedural states; Translations: [OTH SPECIFIED POSTPROCEDURAL STATES] Onset: 10-16-2022 Episodic Unclassified (1 source) Atrial septal defect, unspecified; Translations: [Atrial septal defect, unspecified] Onset: 10-16-2022 Past or Other Problems Problem Classification Problem Date Documented Da te Episodic/Chronic Other aftercare (4 sources) Encounter for surgical aftercare following surgery on the circulatory system; Translations: [ENC SURG [facility] FLW SURG CIRC SYS] Onset: 2 Episodic Other circulatory disease (2 sources) Other hypotension; Translations: [Other hypotension] Onset: 4 Episodic Other screening for suspected conditions (not [...] unspecified; Translations: [Atrial septal defect, unspecified] Onset: 4 Varicose veins of lower extremity (5 sources) Varicose veins of bilateral lower extremities with pain; Translations: [VARICOSE VNS UZIEL LOW EXTREM W/PAIN] Onset: 2 Episodic Results Test Name Value Interpretation Reference Range Facility Office Visiton 03-26-2024 Follow-up visit [id number] Tracie Crain 1965 M Date Provider Department Center 03/26/2024 VIET MARIA RUSLAN Og Family History Problem Relation Age of Onset Atrial fibrillation Mother Alzheimer's disease Mother Family Status - Relation Status Age at Mother Level of Service:30955 [place] OFFICE/OUTPATIENT ESTABLISHED HIGH MDM 40 MIN Normal [facility] HPon 02-28-2024 H&P reviewed. The patient was examined and there are no changes to the H&P. Normal [facility] I have seen and examined the patient on 02/28/2024. There is no significant changes of the note below. Patient is scheduled to have GERMAN followed by right heart catheterization to evaluate his valvular heart disease, ASD and right heart pressures. Both procedures were explained to the patient including the details, risks and benefits and he is agreeable to proceed. Labs were reviewed. Patient denies any history of dysphagia and he denies allergy. Will proceed with GERMAN followed by right heart catheterization by Dr. Will Nova Tracie Crain is a 58 y.o. year old male patient being seen for Follow-up (3 month w/ echo done on 01/23/2024) Patient Active Problem List Diagnosis Right-sided heart [...] Pulmonary venous congestion Chronic depression Family History Family History Problem Relation Name Age of [...] When compared with ECG of 21-MAR-2019 20:42, SC interval has decreased, Vent. rate has increased [...] the mitral valve leaflet. Moderate posterior mitral (more content not included)... Normal [facility] NURSNOTEon 02-28-2024 NURSNOTE RN educated pt on d/ c instructions. RN encouraged pt to voice any questions or concerns. Pt verbalizes no questions or concerns at this time. Pt was wheeled off of unit with all of belongings. Normal [facility] NURSNOTE Bedside swallow stud y completed and passed. [facility] Office Visiton 01-24-2024 Follow-up visit [id number] Tracie Crain 1965 M Date Provider Department Center 01/24/2024 VIET MARIA Family History Problem Relation Age of Onset Atrial fibrillation Mother Alzheimer's disease Mother Family Status - Relation Status Age at Mother Level of Service:76781 SC OFFICE/OUTPATIENT ESTABLISHED HIGH MDM 40 MIN Reason for Visit and Comments: Follow-up [144086] - 3 month w/ echo done on 01/23/2024 [facility] Office Visiton 10-23-2023 Follow-up visit [id number] Tracie Crain 1965 M Date Provider Department Center 10/23/2023 VIET MARIA Family History Problem Relation Age of Onset Atrial fibrillation Mother Alzheimer's disease Mother Family Status - Relation Status Age at Mother Level of Service:53503 SC OFFICE/OUTPATIENT ESTABLISHED MOD MDM 30 MIN [facility] Office Visiton 04-08-2023 Follow-up visit [id number] Tracie Crain 1965 M Date Provider Department Center 04/08/2023 VIET MARIA Family History Problem Relation Age of Onset Atrial fibrillation Mother Alzheimer's disease Mother Family Status - Relation Status Age at Mother Level of Service:71807 SC OFFICE/OUTPATIENT ESTABLISHED MOD MDM 30-39 MIN [facility] ECHOCARDIO M/2D COMPLETEon 0 02-05-2023 ECHOCARDIO M/2D COMPLETE Patient: TRACIE CRAIN. Exam Date: 02/05/2023 : 1965 Gender:M Ordering : DR VIET SALAS M.D. Admission #: [id number] Family : Order #: [id number] CLICK HERE TO VIEW EXAM ECHOCARDIOGRAM REPORT [...] Jenkins M.D. on 02/05/2023 at 16:31 Normal [facility] BNPon 12-19-2022 Natriuretic peptide B (Bld) [Mass/Vol] 859.0 pg/mL Normal <=900.0 [facility] Comment on above: Performed By: #### B MP, BNP #### [facility] [address] [place] [address] Dr. Leonie Beckham PROF CHEM 8 (BAS METB)on Anion gap [Moles/Vol] 9.9 mmol/L Normal [facility] Comment on above: Performed By: #### B MP, BNP #### [facility] [address] [address] [address] Leonie Beckham Calcium [Mass/Vol] 9.4 mg/dL Normal 8.5-10.1 [facility] Comment on above: Performed By: #### B MP, BNP #### [facility] [address] [place] [address] Dr. Leonie Beckham Chloride [Moles/Vol] 102 mmol/L Normal 98-107 [facility] Comment on above: Performed By: #### B MP, BNP #### [facility] [address] [place] [address] Dr. Leonie Beckham CO2 [Moles/Vol] 32.0 mmol/L Normal 21.0-32.0 [facility] Comment on above: Performed By: #### B MP, BNP #### [facility] [address] [place] [address] Dr. Leonie Beckham Creatinine [Mass/Vol] 1.17 mg/dL Normal 0.70-1.30 [facility] Comment on above: Performed By: #### B MP, BNP #### [facility] [address] [place] [address] Dr. Leonie Beckham EGFR-AF NORWEGIAN >60 Normal >=60 [facility] Comment on above: Performed By: #### B MP, BNP #### [facility] [address] [place] [address] Dr. Leonie Beckham EGFR-NON AF NORWEGIAN >60 Normal >=60 [facility] Comment on above: Performed By: #### B MP, BNP #### [facility] [address] [place] [address] Dr. Leonie Beckham Glucose [Mass/Vol] 106 mg/dL Normal 74-106 [facility] Comment on above: Performed By: #### B MP, BNP #### [facility] [address] [place] [address] Dr. Leonie Beckham Potassium [Moles/Vol] 3.9 mmol/L Normal 3.5-5.1 [facility] Comment on above: Performed By: #### B MP, BNP #### [facility] [address] [address] [address] Leonie Beckham Sodium [Moles/Vol] 140 mmol/L Normal 136-145 [facility] Comment on above: Performed By: #### B MP, BNP #### [facility] [address] [address] [address] Leonie Beckham Urea nitrogen [Mass/Vol] 25.0 mg/dL Critically high 7.0-18.0 [facility] Comment on above: Performed By: #### B MP, BNP #### [facility] [address] [place] [address] Dr. Leonie Beckham Urea nitrogen/Creatinine [Mass ratio] 21.4 mg/mg Normal [facility] Comment on above: Performed By: #### B MP, BNP #### [facility] [address] [place] [address] Dr. Leonie Beckham ECHOCARDIO M/2D COMPLETEon 0 11-09-2022 ECHOCARDIO M/2D COMPLETE Patient: TRACIE CRAIN Exam Date: 11/09/2022 : 1965 Gender:M Ordering : DR VIET SALAS M.D. Admission #: [id number] Family : DR TITUS VILLEGAS . Order #: [id number] CLICK HERE TO VIEW EXAM ECHOCARDIOGRAM REPORT [...] Salas M.D. on 11/09/2022 at 16:31 Normal [facility] PROF CHEM 8 (BAS METB)on Anion gap [Moles/Vol] 8.0 mmol/L Normal [facility] Comment on above: Performed By: #### B MP #### [facility] [address] [place] [address] Dr. Leonie Beckham Calcium [Mass/Vol] 8.6 mg/dL Normal 8.5-10.1 [facility] Comment on above: Performed By: #### B MP #### [facility] [address] [address] [address] Leonie Beckham Chloride [Moles/Vol] 102 mmol/L Normal 98-107 [facility] Comment on above: Performed By: #### B MP #### [facility] [address] [address] [address] Leonie Beckham CO2 [Moles/Vol] 31.5 mmol/L Normal 21.0-32.0 [facility] Comment on above: Performed By: #### B MP #### [facility] [address] [address] [address] Leonie Beckham Creatinine [Mass/Vol] 1.13 mg/dL Normal 0.70-1.30 [facility] Comment on above: Performed By: #### B MP #### [facility] [address] [address] [address] Leonie Beckham EGFR-AF NORWEGIAN >60 Normal >=60 [facility] Comment on above: Performed By: #### B MP #### [facility] [address] [place] [address] Dr. Leonie Beckham EGFR-NON AF NORWEGIAN >60 Normal >=60 [facility] Comment on above: Performed By: #### B MP #### [facility] [address] [address] [address] Leonie Beckham Glucose [Mass/Vol] 100 mg/dL Normal 74-106 [facility] Comment on above: Performed By: #### B MP #### [facility] [address] [address] [address] Leonie Beckham Potassium [Moles/Vol] 3.5 mmol/L Normal 3.5-5.1 [facility] Comment on above: Performed By: #### B MP #### [facility] [address] [address] [address] Leonie Beckham Sodium [Moles/Vol] 138 mmol/L Normal 136-145 [facility] Comment on above: Performed By: #### B MP #### [facility] [address] [address] [address] Leonie Beckham Urea nitrogen [Mass/Vol] 24.0 mg/dL Critically high 7.0-18.0 [facility] Comment on above: Performed By: #### B MP #### [facility] [address] [address] [address] Leonie Beckham Urea nitrogen/Creatinine [Mass ratio] 21.2 mg/mg Normal [facility] Comment on above: Performed By: #### B MP #### [facility] [address] [address] [address] Leonie Beckham ECHOCARDIO M/2D COMPLETEon 0 06-27-2022 ECHOCARDIO M/2D COMPLETE Patient: TRACIE CRAIN Exam Date: 06/27/2022 : 1965 Gender:M Ordering : KAI RUFFIN [facility] Admission #: [id number] Family : DR TITUS VILLEGAS . Order #: [id number] CLICK HERE TO VIEW EXAM ECHOCARDIOGRAM REPORT [...] Salas M.D. on 06/27/2022 at 18:23 Normal [facility] VC CONSULT FOLLOWUPon 2021 VC CONSULT FOLLOWUP Patient: TRACIE CRAIN Exam Date: 06/13/2022 : 1965 Gender:M Ordering : DR MELIDA CUELLAR M.D. Admission #: [id number] Family : Order #: [id number] CLICK HERE TO VIEW EXAM RADIOLOGY REPORT [...] Cuellar MD on 06/13/2022 at 14:59 Normal [facility] VC EXT VENOUS RT LIMITEDon 0 06-13-2022 VC EXT VENOUS RT LIMITED Patient: LOUANNRENOTRACIE Exam Date: 06/13/2022 : 1965 Gender:M Ordering : DR MELIDA CUELLAR M.D. Admission #: [id number] Family : Order #: [id number] CLICK HERE TO VIEW EXAM RADIOLOGY REPORT [...] veins in the medial right leg. 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 Admission #: [id number] Family : Order #: [id number] CLICK HERE TO VIEW EXAM RADIOLOGY REPORT [...] for (more content not included)... Normal [facility] VC CONSULT FOLLOWUPon 2021 VC CONSULT FOLLOWUP Patient: TRACIE CRAIN Exam Date: 06/01/2022 : 1965 Gender:M Ordering : DR MELIDA CUELLAR M.D. Admission #: [id number] Family : Order #: [id number] CLICK HERE TO VIEW EXAM RADIOLOGY REPORT [...] Cuellar MD on 06/01/2022 at 09:48 Normal [facility] VC EXT VENOUS LT LIMITEDon 0 06-01-2022 VC EXT VENOUS LT LIMITED Patient: TRACIE CRAIN Exam Date: 06/01/2022 : 1965 Gender:M Ordering : DR MELIDA CUELLAR M.D. Admission #: [id number] Family : Order #: [id number] CLICK HERE TO VIEW EXAM RADIOLOGY REPORT [...] Cuellar MD on 06/01/2022 at 09:29 Normal [facility] VC INJ FOAM SCLERO W US MLTI on 05-25-2022 VC INJ FOAM SCLERO W US MLTI Patient: TRACIE CRAIN Exam Date: 05/25/2022 : 1965 Gender:M Ordering : DR MELIDA CUELLAR M.D. Admission #: [id number] Family : Order #: [id number] CLICK HERE TO VIEW EXAM RADIOLOGY REPORT [...] Aguilar M.D. on 05/25/2022 at 11:44 Normal [facility] VC CONSULT FOLLOWUPon 2021 VC CONSULT FOLLOWUP Patient: TRACIE CRAIN Exam Date: 05/14/2022 : 1965 Gender:M Ordering : DR MELIDA CUELLAR M.D. Admission #: [id number] Family : Order #: [id number] CLICK HERE TO VIEW EXAM RADIOLOGY REPORT [...] Aguilar M.D. on 05/14/2022 at 09:41 Normal [facility] VC EXT VENOUS RT LIMITEDon 0 05-14-2022 VC EXT VENOUS RT LIMITED Patient: TRACIE CRAIN Exam Date: 05/14/2022 : 1965 Gender:M Ordering : DR MELIDA CUELLAR M.D. Admission #: [id number] Family : Order #: [id number] CLICK HERE TO VIEW EXAM RADIOLOGY REPORT [...] Aguilar M.D. on 05/14/2022 at 09:35 Normal [facility] VC ENDOVENOUS ABL PERFORATIN G RTon 05-10-2022 VC ENDOVENOUS ABL PERFORATING RT Patient: PARAS AGUEDA. Exam Date: 05/10/2022 : 1965 Gender:M Ordering : DR MELIDA CUELLAR M.D. Admission #: [id number] Family : Order #: [id number] CLICK HERE TO VIEW EXAM RADIOLOGY REPORT PROCEDURE: VEIN LOGAN ENDOVENOUS ABLATION FOR VEIN RIGHT GREAT SAPHENOUS VEIN COMPARISON: None. INDICATIONS: Pain co-occurrent and due to varicose veins of bilateral legs I83.813 OPERATIVE REPORT: Diagnosis: Superficial venous reflux, incompetent perforating veins Procedure: Endovenous laser ablation of the left uke driver(s) Procedure: The patient was positioned supine on [...] Cuellar MD on 05/10/2022 at 10:50 Normal [facility] VC CONSULT FOLLOWUPon 2021 VC CONSULT FOLLOWUP Patient: TRACIE CRAIN Exam Date: 05/04/2022 : 1965 Gender:M Ordering : DR MELIDA CUELLAR M.D. Admission #: [id number] Family : Order #: [id number] CLICK HERE TO VIEW EXAM RADIOLOGY REPORT [...] Aguilar M.D. on 05/04/2022 at 08:38 Normal [facility] VC EXT VENOUS LT LIMITEDon 0 05-04-2022 VC EXT VENOUS LT LIMITED Patient: TRACIE CRAIN Exam Date: 05/04/2022 : 1965 Gender:M Ordering : DR MELIDA CUELLAR M.D. Admission #: [id number] Family : Order #: [id number] CLICK HERE TO VIEW EXAM RADIOLOGY REPORT [...] Aguilar M.D. on 05/04/2022 at 08:32 Normal [facility] VC ENDOVENOUS ABL 1ST V LTon 04-27-2022 VC ENDOVENOUS ABL 1ST V LT Patient: TRACIE CRAIN Exam Date: 04/27/2022 : 1965 Gender:M Ordering : DR MELIDA CUELLAR M.D. Admission #: [id number] Family : Order #: [id number] CLICK HERE TO VIEW EXAM RADIOLOGY REPORT PROCEDURE: VEIN CENTER ENDOVENOUS ABLATION FIRST VEIN LEFT COMPARISON: None. INDICATIONS: Pain co-occurrent and due to varicose veins of bilateral legs I83.813 OPERATIVE REPORT: The risks and benefits of the procedure had been previously discussed, and were rediscussed at length. Informed written consent was obtained by me and [employer] assisted. Time out procedure was performed. The left [...] M.D. on 04/27/2022 at 10:32 Normal [facility] CBC AUTO DIFFon 04-05-2022 BASO # 0.1 103/ul Normal 0.0-0.1 [facility] Comment on above: Performed By: #### C BC ####[facility] [address] [address]DrGabino Beckham Basophils/100 WBC (Bld) 1.2 % Normal 0.2-2.0 [facility] Comment on above: Performed By: #### C BC ####[facility] [address] [address]DrGabino Beckham EO # 0.3 103/ul Normal 0.0-0.7 [facility] Comment on above: Performed By: #### C BC ####[facility] [address] [address]DrGabino Beckham Eosinophils/100 WBC (Bld) 3.9 % Normal 0.9-7.0 [facility] Comment on above: Performed By: #### C BC ####[facility] [address] [place], [place] [address]Dr. Leonie Beckham Erythrocyte distribution width (RBC) [Ratio] 13.2 % Normal 11.0-15.0 [facility] Comment on above: Performed By: #### C BC ####[facility] [address] [place], [place] [address]Dr. Leonie Beckham Hematocrit (Bld) [Volume fraction] 43.5 % Normal 42.0-54.0 [facility] Comment on above: Performed By: #### C BC ####[facility] [address] [place], [place] [address]Dr. Leonie Beckham Hemoglobin (Bld) [Mass/Vol] 13.9 g/dL Critically low 14.0-18.0 [facility] Comment on above: Performed By: #### C BC ####[facility] [address] [place], [place] [address]Dr. Leonie Beckham IG # 0.03 10e3/ul Normal 0.00-0.03 [facility] Comment on above: Performed By: #### C BC ####[facility] [address] [place], [place] [address]Dr. Leonie Beckham IG % 0.4 % Normal 0.0-0.5 [facility] Comment on above: Performed By: #### C BC ####[facility] [address] [place], [place] [address]Dr. eLonie Beckham LYMPH # 2.0 103/ul Normal 1.2-3.8 [facility] Comment on above: Performed By: #### C BC ####[facility] [address] [place], [place] [address]Dr. Leonie Beckham Lymphocytes/100 WBC (Bld) 25.0 % Normal 20.5-60.0 [facility] Comment on above: Performed By: #### C BC ####[facility] [address] [place] [address]. Leonie Beckham MANUAL DIFF REQ NO Normal [facility] Comment on above: Performed By: #### C BC ####[facility] [address] [address]Dr. Leonie Chapincito MCH (RBC) [Entitic mass] 30.2 pg Normal 25.9-34.0 [facility] Comment on above: Performed By: #### C BC ####[facility] [address] [place], [place] [address]Dr. Kaleighjacob Chapincito MCHC (RBC) [Mass/Vol] 32.0 g/dL Normal 29.9-35.2 [facility] Comment on above: Performed By: #### C BC ####[facility] [address] [place], [place] [address]Dr. Leonie Beckham MCV (RBC) [Entitic vol] 94.4 fL Critically high 80.0-94.0 [facility] Comment on above: Performed By: #### C BC ####[facility] [address] [place], [place] [address]Dr. Leonie Beckham MONO # 1.0 103/ul Critically high 0.3-0.8 [facility] Comment on above: Performed By: #### C BC ####[facility] [address] [place], [place] [address]Dr. Leonie Beckham Monocytes/100 WBC (Bld) 12.0 % Normal 1.7-12.0 [facility] Comment on above: Performed By: #### C BC ####[facility] [address] [place], [place] [address]DrGabino Beckham NEUT # 4.6 103/ul Normal 1.4-6.5 [facility] Comment on above: Performed By: #### C BC ####[facility] [address] [place], [place] [address]DrGabino Beckham Neutrophils/100 WBC (Bld) 57.5 % Normal 43.0-75.0 [facility] Comment on above: Performed By: #### C BC ####[facility] [address] [place], [place] [address]Dr. Leonie Beckham Platelet mean volume (Bld) [Entitic vol] 9.4 fL Critically low 9.5-13.5 [facility] Comment on above: Performed By: #### C BC ####[facility] [address] [address]Dr. Leonie Beckham PLT 203 103/ul Normal 150-450 [facility] Comment on above: Performed By: #### C BC ####[facility] [address] [address]Dr. Leonie Beckham RBC 4.61 106/ul Critically low 4.70-6.10 [facility] Comment on above: Performed By: #### C BC ####[facility] [address] [address]Dr. Leonie Beckham WBC 8.0 103/ul Normal 4.0-11.0 [facility] Comment on above: Performed By: #### C BC ####[facility] [address] [address]Dr. Leonie Beckham FREE T3on 04-05-2022 FREE T3 2.54 pg/mlL Normal 2.18-3.98 [facility] Comment on above: Performed By: #### T SH, LIPID, CMP, T4, FT3 ####[facility] [address] [address]Dr. Leonie Beckham GLYCOHEMOGLOBIN A1Con 2021 ADA RECOMMENDATION SEE BELOW Normal [facility] Comment on above: Result Comment: ADA RECOMMENDED LIMIT 4.0 - 6.0 ADA THERAPEUTIC TARGET < 7.0 ACTION SUGGESTED > 7.0 Performed By: #### A 1C ####[facility] [address] [address]Dr. Leonie Beckham Glucose [Mass/Vol] 126 mg/dL Normal [facility] Comment on above: Performed By: #### A 1C ####[facility] [address] [address]Dr. Leonie Beckham HbA1c (Bld) [Mass fraction] 6.0 % Normal 4.5-6.2 [facility] Comment on above: Performed By: #### A 1C ####[facility] [address] [address]Dr. Leonie Beckham LIPID PROFILEon 04-05-2022 CHOL-HDL RATIO NORM SEE BELOW Normal [facility] Comment on above: Result Comment: 3.3 - 4.4 LOW RISK 4.4 - 7.1 AVERAGE RISK 7.1 - 11.0 MODERATE RISK >11.0 HIGH RISK Performed By: #### T SH, LIPID, CMP, T4, FT3 ####[facility] [address] [address]Dr. Leonie Beckham Cholesterol [Mass/Vol] 137 mg/dL Normal <=200 [facility] Comment on above: Performed By: #### T SH, LIPID, CMP, T4, FT3 ####[facility] [address] [address]Dr. Leonie Beckham Cholesterol in HDL [Mass/Vol] 40 mg/dL Normal 40-60 [facility] Comment on above: Performed By: #### T SH, LIPID, CMP, T4, FT3 ####[facility] [address] [address]Dr. Leonie Beckham Cholesterol in LDL [Mass/Vol] 84.0 mg/dL Normal [facility] Comment on above: Performed By: #### T SH, LIPID, CMP, T4, FT3 ####[facility] [address] [address]Dr. Leonie Beckham Cholesterol.total/Ch olesterol in HDL [Mass ratio] 3.4 {ratio} Normal [facility] Comment on above: Performed By: #### T SH, LIPID, CMP, T4, FT3 ####[facility] [address] [address]Dr. Leonie Beckham HDL NORMAL > or = 60 mg/dl - LO W CARDIOVASCULAR RISK <40 mg/dl - HIGH CARDIOVASCULAR RISK Normal [facility] Comment on above: Performed By: #### T SH, LIPID, CMP, T4, FT3 ####[facility] [address] [address]Dr. Leonie Beckham LDL CALC NORMAL SEE BELOW Normal [facility] Comment on above: Result Comment: <100 mg/dl OPTIMAL 100 - 129 mg/dl NEAR OR ABOVE OPTIMAL 130 - 159 mg/dl BORDERLINE HIGH 160 - 189 mg/dl HIGH >190 mg/dl VERY HIGH Performed By: #### T SH, LIPID, CMP, T4, FT3 ####[facility] [address] [id number]. Leonie Beckham Triglyceride [Mass/Vol] 65 mg/dL Normal <=150 [facility] Comment on above: Performed By: #### T SH, LIPID, CMP, T4, FT3 ####[facility] [address] [address]Dr. Leonie Beckham VLDL CALC 13.0 mg/dL Normal [facility] Comment on above: Performed By: #### T SH, LIPID, CMP, T4, FT3 ####[facility] [address] [address]DrGabino Beckham PROF 14(COMP METB)on 022 Albumin [Mass/Vol] 3.8 g/dL Normal 3.4-5.0 [facility] Comment on above: Performed By: #### T SH, LIPID, CMP, T4, FT3 ####[facility] [address] [place] [id number]. Leonie Beckham Albumin/Globulin [Mass ratio] 1.2 {ratio} Normal [facility] Comment on above: Performed By: #### T SH, LIPID, CMP, T4, FT3 ####[facility] [address]riubpp[address] [place] [address]Dr. Leonie Beckham ALP [Catalytic activity/Vol] 81 U/L Normal 46-116 [facility] Comment on above: Performed By: #### T SH, LIPID, CMP, T4, FT3 ####[facility] Fhryehsjtg[address] [place] [address]Dr. Leonie Beckham ALT [Catalytic activity/Vol] 35 U/L Normal 16-63 [facility] Comment on above: Performed By: #### T SH, LIPID, CMP, T4, FT3 ####[facility] [address] [place] [address]Dr. Leonie Beckham Anion gap [Moles/Vol] 10.8 mmol/L Normal [facility] Comment on above: Performed By: #### T SH, LIPID, CMP, T4, FT3 ####[facility] [address]ptuqess[address] [place] [address]Dr. Leonie Beckham AST [Catalytic activity/Vol] 22 U/L Normal 15-37 [facility] Comment on above: Performed By: #### T SH, LIPID, CMP, T4, FT3 ####[facility] Qeqnbcz[address] [place] [address]Dr. Leonie Beckham Bilirubin [Mass/Vol] 1.1 mg/dL Critically high 0.2-1.0 [facility] Comment on above: Performed By: #### T SH, LIPID, CMP, T4, FT3 ####[facility] [address] [place], [place] [address]Dr. Leonie Beckham Calcium [Mass/Vol] 8.6 mg/dL Normal 8.5-10.1 [facility] Comment on above: Performed By: #### T SH, LIPID, CMP, T4, FT3 ####[facility] [address] [place], [place] [address]Dr. Leonie Beckham Chloride [Moles/Vol] 105 mmol/L Normal 98-107 [facility] Comment on above: Performed By: #### T SH, LIPID, CMP, T4, FT3 ####[facility] [address] [place], [place] [address]Dr. Leonie Beckham CO2 [Moles/Vol] 28.2 mmol/L Normal 21.0-32.0 [facility] Comment on above: Performed By: #### T SH, LIPID, CMP, T4, FT3 ####[facility] [address] [place], [place] [address]Dr. Leonie Beckham Creatinine [Mass/Vol] 1.33 mg/dL Critically high 0.70-1.30 [facility] Comment on above: Performed By: #### T SH, LIPID, CMP, T4, FT3 ####[facility] [address] [place] [address]Dr. Leonie Beckham EGFR-AF NORWEGIAN >60 Normal >=60 [facility] Comment on above: Performed By: #### T SH, LIPID, CMP, T4, FT3 ####[facility] [address] [place] [address]Dr. Leonie Beckham EGFR-NON AF NORWEGIAN 55 mL/min/1.73m2 Critically low >=60 [facility] Comment on above: Performed By: #### T SH, LIPID, CMP, T4, FT3 ####[facility] [address] [place] [address]Dr. Leonie Beckham Globulin (S) [Mass/Vol] 3.3 g/dL Normal [facility] Comment on above: Performed By: #### T SH, LIPID, CMP, T4, FT3 ####[facility] [address]reqmi[address] [place] [address]Dr. Leonie Beckham Glucose [Mass/Vol] 94 mg/dL Normal 74-106 [facility] Comment on above: Performed By: #### T SH, LIPID, CMP, T4, FT3 ####[facility] [address] [place] [address]Dr. Leonie Beckham Potassium [Moles/Vol] 4.0 mmol/L Normal 3.5-5.1 [facility] Comment on above: Performed By: #### T SH, LIPID, CMP, T4, FT3 ####[facility] [address]qu[address] [place] [address]Dr. Leonie Beckham Protein [Mass/Vol] 7.1 g/dL Normal 6.4-8.2 [facility] Comment on above: Performed By: #### T SH, LIPID, CMP, T4, FT3 ####[facility] [address]oz[address] [place] [address]Dr. Leonie Beckham Sodium [Moles/Vol] 140 mmol/L Normal 136-145 [facility] Comment on above: Performed By: #### T SH, LIPID, CMP, T4, FT3 ####[facility] [address] [place] [phone]. Leonie Beckham Urea nitrogen [Mass/Vol] 24.0 mg/dL Critically high 7.0-18.0 [facility] Comment on above: Performed By: #### T SH, LIPID, CMP, T4, FT3 ####[facility] [address] [place], [place] [address]We. Leonie Beckham Urea nitrogen/Creatinine [Mass ratio] 18.0 mg/mg Normal [facility] Comment on above: Performed By: #### T SH, LIPID, CMP, T4, FT3 ####[facility] [address]xf[address] [place], [place] [address]Ac. Leonie Beckham T4on 04-05-2022 T4 [Mass/Vol] 7.70 ug/dL Normal 4.50-12.10 [facility] Comment on above: Performed By: #### T SH, LIPID, CMP, T4, FT3 ####[facility] [address] [place] [address]Dr. Leonie Beckham TSHon 04-05-2022 TSH 3.042 uIU/mL Normal 0.358-3.740 [facility] Comment on above: Performed By: #### T SH, LIPID, CMP, T4, FT3 ####[facility] [address]vq[address]urwfj[address] [place] [address]Dr. Leonie Beckham VC COMP CONSULTATIONon 03-08 VC COMP CONSULTATION Patient: TRACIE CRAIN Exam Date: 03/08/2022 : 1965 Gender:M Ordering : DR TITUS VILLEGAS . 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 Normal [facility] Ambulatory Clinical Summaryo n 12-20-2020 Ambulatory Clinical Summary {[id number]}CD:[id number] Normal [facility] Coding Summary.on 12-20-2020 Coding Summary. CODING DATE: 12/19/2020 FINAL [facility] STATUS: Home (Routine DC) PAYOR: Commercial Insurance [...] CphT Date Saved: 12/19/2020 11:58 pm Normal [facility] General Surgery Office/Clini c Noteon 12-20-2020 [...] BONG ADKINS, Tracie Diaz if needed [address] [place] [address]- Additional Instructions: Problem List/Past Medical [...] inactivated - Not Given Patient Refuses Normal [facility] Comment on above: Result Comment: Elec tronically Signed By: BONG ADKINS, Tracie Sarah\Date and Time Signed: 12/20/20 15:58 EDT Ambulatory Clinical Summaryo n 12-09-2020 Ambulatory Clinical Summary {[id number]}CD:[id number] Normal [facility] General Surgery Office/Clini c Noteon 12-09-2020 [...] vaccine, inactivated - Not Given Patient Refuses [facility] Comment on above: Result Comment: Elec tronically Signed By: BONG ADKINS, Tracie R\.br\Date and Time Signed: 12/09/20 09:30 EST Provider Letter FTon 11-30 Provider Letter [facility] [place]itus Villegas, [facility] [place] [address] Re: TRACIE CRAIN Date of : 1965 Thank you for your referral of Tracie Crain who was seen on consultation on November 29, 2020, for growth on left lower back that is changing. An excisional biopsy is planned. I have enclosed my consultation notes for your review. I will be happy to follow Tracie. Sincerely, Tracie Woody MD General Surgery [facility] Ambulatory Clinical Summaryo n 11-29-2020 Ambulatory Clinical Summary {[id number]}CD:[id number] [facility] Physician Referralon 021 Physician Referral [id number] 0CD:127 [facility] Operative Reporton 9 Operative Report MR#: [id number] S [facility] Pt. Name: Tracie Crain Room #: [...] form. 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 Date Dict: 05/12/2019/10:14 A/James Reyna MD Date Trans: 05/12/2019 01:23 P/tylero DN_[id number] cc: Titus Villegas M.D. [address] [facility] [address] Timbo Black MD [address] [facility] [address] Normal [facility] BASIC METABOLIC PANELon 07-0 Calcium [Mass/Vol] 9.4 mg/dL Normal 8.6-10.3 [facility] Comment on above: Performed By: #### 0 0121, 89857, 92385, 58191, 16740 #### [facility] [address] [place] [address], [place] Chloride [Moles/Vol] 99 mmol/L Normal 98-107 [facility] Comment on above: Performed By: #### 0 0121, 30568, 68741, 30863, 06496 #### [facility] [address] [place] [address], [place] CO2 [Moles/Vol] 31 mmol/L Normal 21-31 [facility] Comment on above: Performed By: #### 0 0121, 43279, 99203, 65541, 07406 #### [facility] [address] [place] [address], [place] Creatinine [Mass/Vol] 1.22 mg/dL Normal 0.70-1.30 [facility] Comment on above: Performed By: #### 0 0121, 15460, 25086, 10091, 23392 #### [facility] [address] [place] [address], [place] GFR/1.73 sq M predicted among blacks MDRD (S/P/Bld) [Vol rate/Area] mL/min/{1.73_m2} Normal >60 [facility] Comment on above: Performed By: #### 0 0121, 62505, 76504, 41719, 09393 #### [facility] [address] [place] [address], [place] GFR/1.73 sq M predicted among non-blacks MDRD (S/P/Bld) [Vol rate/Area] mL/min/{1.73_m2} Normal >60 [facility] Comment on above: Performed By: #### 0 0121, 10613, 18997, 16585, 02233 #### [facility] [address] [place] [address], [place] Glucose [Mass/Vol] 126 mg/dL High 70-100 [facility] Comment on above: Performed By: #### 0 0121, 10969, 56511, 36753, 26353 #### [facility] [address] [place] [address], [facility] Potassium [Moles/Vol] 3.8 mmol/L Normal 3.5-5.1 [facility] Comment on above: Performed By: #### 0 0121, 42168, 93497, 79339, 84351 #### [facility] [address] [place] [address], [facility] Sodium [Moles/Vol] 139 mmol/L Normal 136-145 [facility] Comment on above: Performed By: #### 0 0121, 11589, 19692, 01148, 20282 #### [facility] [address] [place] [address], [facility] Urea nitrogen [Mass/Vol] 15 mg/dL Normal 7-25 [facility] Comment on above: Performed By: #### 0 0121, 20614, 23935, 14107, 52210 #### [facility] [address] [place] [address], [facility] BNP (B-TYPE NATRIURETIC PEPT PACHECO)on 04-07-2019 Natriuretic peptide B (Bld) [Mass/Vol] 502 pg/mL High 0-100 [facility] Comment on above: Result Comment: Give n the appropriate clinical setting a BNP result of >100 pg/mL indicates congestive heart failure. Performed By: #### 0 0121, 35444, 13552, 48212, 52229 #### [facility] [address] [place] [id number], [facility] CBC W/DIFFon 04-07-2019 ABS BASOPHILS 0.1 10*3/uL Normal 0.0-0.2 [facility] Comment on above: Performed By: #### 0 0121, 10261, 37092, 55700, 09786 #### [facility] [address] [place] [address], [place] ABS IMM GRANS 0.0 10*3/uL Normal 0.0-0.2 [facility] Comment on above: Performed By: #### 0 0121, 33602, 89696, 35608, 95228 #### [facility] [address] [place] [address], [facility] ABS NEUTROPHILS 5.1 10*3/uL Normal 1.6-7.6 The [facility] Comment on above: Performed By: #### 0 0121, 00949, 03031, 83863, 78113 #### [facility] [address] [place] [address], [facility] Basophils/100 WBC (Bld) 1.5 % High 0.0-1.0 [facility] Comment on above: Performed By: #### 0 0121, 82373, 07200, 64069, 18385 #### [facility] [address] [place] [address], [facility] Eosinophils (Bld) [#/Vol] 0.3 10*3/uL Normal 0.0-0.5 [facility] Comment on above: Performed By: #### 0 0121, 45345, 46245, 81339, 27731 #### [facility] [address] [place] [address], [facility] Eosinophils/100 WBC (Bld) 3.7 % Normal 0.0-6.0 [facility] Comment on above: Performed By: #### 0 0121, 73215, 06674, 19537, 97199 #### [facility] [address] [place] [address], [place] Erythrocyte distribution width (RBC) [Ratio] 13.2 % Normal 11.5-15.0 [facility] Comment on above: Performed By: #### 0 0121, 11264, 61123, 72622, 21411 #### [facility] [address] [place], [address] Hematocrit (Bld) [Volume fraction] 39.2 % Normal 39.0-50.0 [facility] Comment on above: Performed By: #### 0 0121, 95472, 23585, 44951, 27185 #### [facility] [address] [place] [address], [facility] Hemoglobin (Bld) [Mass/Vol] 12.4 g/dL Low 13.0-17.0 [facility] Comment on above: Performed By: #### 0 0121, 00822, 56739, 52027, 36997 #### [facility] [address] [facility] [place] [address], [facility] IMMATURE GRANS 0.4 % Normal 0.0-1.0 The [facility] slime [facility] Comment on above: Performed By: #### 0 0121, 55215, 00717, 60991, 29935 #### [facility] [address] [facility] [address] Lymphocytes (Bld) [#/Vol] 1.7 10*3/uL Normal 1.2-4.0 [facility] Comment on above: Performed By: #### 0 0121, 42794, 33918, 35329, 64199 #### [facility] [address] [facility] [place] [address], [facility] Lymphocytes/100 WBC (Bld) 21.2 % Normal 20.0-45.0 [facility] Comment on above: Performed By: #### 0 0121, 22527, 10476, 86903, 12667 #### [facility] [address] [facility] [place] [address], [facility] MCH (RBC) [Entitic mass] 28.8 pg Normal 27.0-33.0 [facility] Comment on above: Performed By: #### 0 0121, 42112, 06672, 49580, 45994 #### [facility] [address] [place] [address], [facility] MCHC (RBC) [Mass/Vol] 31.6 g/dL Low 32.0-35.0 [facility] Comment on above: Performed By: #### 0 0121, 61966, 06794, 70398, 40660 #### [facility] [address] [place] [address], [facility] MCV (RBC) [Entitic vol] 91.0 fL Normal 82.0-98.0 [facility] Comment on above: Performed By: #### 0 0121, 50832, 51671, 01579, 30072 #### [facility] [address] [facility] [place] [address], [facility] Monocytes (Bld) [#/Vol] 0.9 10*3/uL Normal 0.1-1.0 [facility] Comment on above: Performed By: #### 0 0121, 07585, 89195, 35406, 48162 #### [facility] [address] [place] [address], [facility] MONOS 10.6 % Normal 5.0-12.0 [facility] Comment on above: Performed By: #### 0 0121, 38431, 04244, 21386, 98647 #### [facility] [address] [facility] [place] [address], [facility] Neutrophils/100 WBC (Bld) 62.6 % Normal 40.0-72.0 [facility] Comment on above: Performed By: #### 0 0121, 09669, 41619, 27024, 11929 #### [facility] [address] [place] [address], [facility] Nucleated RBC/100 WBC (Bld) [Ratio] 0 % Normal 0-0 [facility] Comment on above: Performed By: #### 0 0121, 43759, 68997, 98255, 66639 #### [facility] [address] [place] [address], [place] PLAT CNT 520 10*3/uL High 150-400 [facility] Comment on above: Performed By: #### 0 0121, 99646, 49866, 65519, 73473 #### [facility] [address] [place] [address], [facility] RBC (Bld) [#/Vol] 4.31 10*6/uL Normal 4.20-5.70 [facility] Comment on above: Performed By: #### 0 0121, 75016, 99902, 20150, 99708 #### [facility] [address] [facility] [place] [address], [facility] WBC (Bld) [#/Vol] 8.20 10*3/uL Normal 4.00-10.60 [facility] Comment on above: Performed By: #### 0 0121, 11241, 05210, 60627, 68154 #### [facility] [address] [facility]. [address] HEMOGLOBINon 04-07-2019 Hemoglobin (Bld) [Mass/Vol] CANCELED Normal 13.0-17.0 [facility] Comment on above: Result Comment: The released value 12.3 was canceled by OCREEGER on 04/07/2019 12:48 Performed By: #### 0 0121, 05394, 84743, 91369, 97899 #### [facility] [address] [facility]. [address] BASIC METABOLIC PANELon - Calcium [Mass/Vol] 9.0 mg/dL Normal 8.6-10.3 [facility] Comment on above: Order Comment: No: D o not add to previous draw Performed By: #### 0 0121, 88303, 41720, 55098, 77488 #### [facility] [address] Chloride [Moles/Vol] 98 mmol/L Normal 98-107 [facility] Comment on above: Order Comment: No: D o not add to previous draw Performed By: #### 0 0121, 53594, 00664, 84197, 32564 #### [facility] [address] [place] [address], [place] CO2 [Moles/Vol] 29 mmol/L Normal 21-31 [facility] Comment on above: Order Comment: No: D o not add to previous draw Performed By: #### 0 0121, 63098, 30239, 42161, 63601 #### [facility] [address] [place] [address], [place] Creatinine [Mass/Vol] 1.00 mg/dL Normal 0.70-1.30 [facility] Comment on above: Order Comment: No: D o not add to previous draw Performed By: #### 0 0121, 11502, 89814, 52727, 72119 #### [facility] [address] [place] [address], [place] GFR/1.73 sq M predicted among blacks MDRD (S/P/Bld) [Vol rate/Area] mL/min/{1.73_m2} Normal >60 [facility] Comment on above: Order Comment: No: D o not add to previous draw Performed By: #### 0 0121, 56484, 60331, 71809, 85762 #### [facility] [address] [place] [address], [place] GFR/1.73 sq M predicted among non-blacks MDRD (S/P/Bld) [Vol rate/Area] mL/min/{1.73_m2} Normal >60 [facility] Comment on above: Order Comment: No: D o not add to previous draw Performed By: #### 0 0121, 77927, 17011, 75287, 03924 #### [facility] [address] [place] [address], [place] Glucose [Mass/Vol] 96 mg/dL Normal 70-100 [facility] Comment on above: Order Comment: No: D o not add to previous draw Performed By: #### 0 0121, 31159, 72172, 72590, 36341 #### [facility] [address] [place] [address], [facility] Potassium [Moles/Vol] 3.1 mmol/L Low 3.5-5.1 [facility] Comment on above: Order Comment: No: D o not add to previous draw Performed By: #### 0 0121, 33784, 88940, 67666, 85262 #### [facility] [address] [place] [address], [facility] Sodium [Moles/Vol] 138 mmol/L Normal 136-145 [facility] Comment on above: Order Comment: No: D o not add to previous draw Performed By: #### 0 0121, 34686, 71170, 20592, 17406 #### [facility] [address] [place] [address], [facility] Urea nitrogen [Mass/Vol] 24 mg/dL Normal 7-25 [facility] Comment on above: Order Comment: No: D o not add to previous draw Performed By: #### 0 0121, 32514, 67805, 60667, 89929 #### [facility] [address] [place] [address], [facility] CBC COMPLETE BLOOD COUNTon 0 - Erythrocyte distribution width (RBC) [Ratio] 13.6 % Normal 11.5-15.0 [facility] Comment on above: Order Comment: No: D o not add to previous draw Performed By: #### 0 0121, 16915, 39177, 49670, 06198 #### [facility] [address] [place] [address], [facility] Hematocrit (Bld) [Volume fraction] 34.7 % Low 39.0-50.0 [facility] Comment on above: Order Comment: No: D o not add to previous draw Performed By: #### 0 0121, 53632, 39462, 08359, 37914 #### [facility] [address] [place] [address], [facility] Hemoglobin (Bld) [Mass/Vol] 11.3 g/dL Low 13.0-17.0 [facility] Comment on above: Order Comment: No: D o not add to previous draw Performed By: #### 0 0121, 16144, 26930, 58657, 32860 #### [facility] [address] [place] [address], [facility] MCH (RBC) [Entitic mass] 28.8 pg Normal 27.0-33.0 [facility] Comment on above: Order Comment: No: D o not add to previous draw Performed By: #### 0 0121, 62658, 98811, 93145, 95817 #### [facility] [address] [place] [address], [facility] MCHC (RBC) [Mass/Vol] 32.6 g/dL Normal 32.0-35.0 [facility] Comment on above: Order Comment: No: D o not add to previous draw Performed By: #### 0 0121, 12482, 77534, 18675, 73816 #### [facility] [address] [place] [address], [facility] MCV (RBC) [Entitic vol] 88.5 fL Normal 82.0-98.0 [facility] Comment on above: Order Comment: No: D o not add to previous draw Performed By: #### 0 0121, 30130, 10433, 56449, 05810 #### [facility] [address] [place] [id number], [facility] Nucleated RBC/100 WBC (Bld) [Ratio] 0 % Normal 0-0 [facility] Comment on above: Order Comment: No: D o not add to previous draw Performed By: #### 0 0121, 41333, 71260, 08422, 29687 #### [facility] [address] [place] [address], [facility] PLAT CNT 205 10*3/uL Normal 150-400 [facility] Comment on above: Order Comment: No: D o not add to previous draw Performed By: #### 0 0121, 10184, 70118, 67946, 14916 #### [facility] [address] [place] [address], [facility] RBC (Bld) [#/Vol] 3.92 10*6/uL Low 4.20-5.70 [facility] Comment on above: Order Comment: No: D o not add to previous draw Performed By: #### 0 0121, 87397, 86235, 24276, 22723 #### [facility] [address] [place] [address], [facility] WBC (Bld) [#/Vol] 11.83 10*3/uL High 4.00-10.60 [facility] Comment on above: Order Comment: No: D o not add to previous draw Performed By: #### 0 0121, 82290, 00356, 93603, 36666 #### [facility] [address] [place] [address], [facility] MAGNESIUM BLOODon 03-27-2019 Magnesium [Mass/Vol] 2.3 mg/dL Normal 1.9-2.7 [facility] Comment on above: Order Comment: No: D o not add to previous draw Performed By: #### 0 0121, 60380, 21613, 94060, 82086 #### [facility] [address] [place] [address], [facility] POC GLUCOSE LABon 03-27-2019 Glucose [Mass/Vol] 115 mg/dL High 70-100 [facility] Comment on above: Performed By: #### 0 0121, 31691, 08651, 94251, 89482 #### [facility] [address] Glucose [Mass/Vol] 96 mg/dL Normal 70-100 [facility] Comment on above: Performed By: #### 0 0121, 47998, 16078, 27793, 62987 #### [address] PORTABLE CHEST 1 VIEWon 03-01 PORTABLE CHEST 1 VIEW [facility] Department of Radiology [address] [place] [id number] ======== Patient Name: TRACIE CRAIN : 1965 Sex: M Age: Race: NA Pt. Location: [id number] Patient Status: I Ordered Date: 03/27/2019 5:00:00 [...] findings. Electronically signed by:Divya Collins. Transcribed by: [email or web address], User Resident: ANAI ALVARDAO Electronically Signed by: DIVYA COLLINS @ 03/27/2019 09:07 AM I personally read this/these film(s) with this resident Normal [facility] Comment on above: Order Comment: No: D o not add to previous draw BASIC METABOLIC PANELon 03-01 Calcium [Mass/Vol] 9.2 mg/dL Normal 8.6-10.3 [facility] Comment on above: Order Comment: No: D o not add to previous draw Performed By: #### 0 [id number], [id number], [id number], [id number], [id number] #### [facility] [address] [place] [address], [place] Chloride [Moles/Vol] 101 mmol/L Normal 98-107 [facility] Comment on above: Order Comment: No: D o not add to previous draw Performed By: #### 0 0121, 07558, 75154, 72721, 77813 #### [facility] [address] [place] [address], [place] CO2 [Moles/Vol] 27 mmol/L Normal 21-31 [facility] Comment on above: Order Comment: No: D o not add to previous draw Performed By: #### 0 0121, 80153, 82449, 00686, 16053 #### [facility] [address] [place] [address], [place] Creatinine [Mass/Vol] 0.93 mg/dL Normal 0.70-1.30 [facility] Comment on above: Order Comment: No: D o not add to previous draw Performed By: #### 0 0121, 81328, 14499, 10256, 87457 #### [facility] [address] [place] [address], [place] GFR/1.73 sq M predicted among blacks MDRD (S/P/Bld) [Vol rate/Area] mL/min/{1.73_m2} Normal >60 [facility] Comment on above: Order Comment: No: D o not add to previous draw Performed By: #### 0 0121, 79579, 25211, 54732, 05322 #### [facility] [address] [place] [address], [place] GFR/1.73 sq M predicted among non-blacks MDRD (S/P/Bld) [Vol rate/Area] mL/min/{1.73_m2} Normal >60 [facility] Comment on above: Order Comment: No: D o not add to previous draw Performed By: #### 0 0121, 05235, 43118, 47912, 03246 #### [facility] [address] [place] [address], [place] Glucose [Mass/Vol] 111 mg/dL High 70-100 [facility] Comment on above: Order Comment: No: D o not add to previous draw Performed By: #### 0 0121, 14664, 90095, 40109, 21214 #### [facility] [address] [place] [address], [place] Potassium [Moles/Vol] 3.9 mmol/L Normal 3.5-5.1 [facility] Comment on above: Order Comment: No: D o not add to previous draw Performed By: #### 0 0121, 84003, 88777, 05461, 64459 #### [facility] [address] [place] [address], [place] Sodium [Moles/Vol] 137 mmol/L Normal 136-145 [facility] Comment on above: Order Comment: No: D o not add to previous draw Performed By: #### 0 0121, 12386, 49893, 76481, 66081 #### [facility] [address] Urea nitrogen [Mass/Vol] 26 mg/dL High 7-25 [facility] Comment on above: Order Comment: No: D o not add to previous draw Performed By: #### 0 0121, 05684, 35056, 74983, 49319 #### [facility] [address] CBC W/DIFFon 03-26-2019 ABS BASOPHILS 0.1 10*3/uL Normal 0.0-0.2 [facility] Comment on above: Order Comment: No: D o not add to previous draw Performed By: #### 0 0121, 92082, 00408, 49380, 02245 #### [facility] [address] ABS IMM GRANS 0.5 10*3/uL High 0.0-0.2 [facility] Comment on above: Order Comment: No: D o not add to previous draw Performed By: #### 0 0121, 13233, 10245, 13102, 91967 #### [facility] [address] ABS NEUTROPHILS 10.2 10*3/uL High 1.6-7.[address] [facility] Comment on above: Order Comment: No: D o not add to previous draw Performed By: #### 0 0121, 67535, 32454, 37251, 53328 #### [facility] 3000 [facility]. [address] Basophils/100 WBC (Bld) 0.6 % Normal 0.0-1.0 [facility] Comment on above: Order Comment: No: D o not add to previous draw Performed By: #### 0 0121, 26795, 09578, 65761, 84956 #### [facility] [address] [place] [address], [facility] Eosinophils (Bld) [#/Vol] 0.4 10*3/uL Normal 0.0-0.5 [facility] Comment on above: Order Comment: No: D o not add to previous draw Performed By: #### 0 0121, 56584, 09977, 48002, 90682 #### [facility] [address] [place] [address], [facility] Eosinophils/100 WBC (Bld) 2.8 % Normal 0.0-6.0 [facility] Comment on above: Order Comment: No: D o not add to previous draw Performed By: #### 0 0121, 23898, 42945, 17716, 30634 #### [facility] [address] [place] [address], [facility] Erythrocyte distribution width (RBC) [Ratio] 13.6 % Normal 11.5-15.0 [facility] Comment on above: Order Comment: No: D o not add to previous draw Performed By: #### 0 0121, 42595, 99879, 78956, 66701 #### [facility] [address] [place] [address], [facility] Hematocrit (Bld) [Volume fraction] 34.5 % Low 39.0-50.0 [facility] Comment on above: Order Comment: No: D o not add to previous draw Performed By: #### 0 0121, 69856, 12369, 03014, 95299 #### [facility] [address] [place] [address], [facility] Hemoglobin (Bld) [Mass/Vol] 11.3 g/dL Low 13.0-17.0 [facility] Comment on above: Order Comment: No: D o not add to previous draw Performed By: #### 0 0121, 99136, 69063, 07258, 95143 #### [facility] [address] [place] [address], [facility] IMMATURE GRANS 3.5 % High 0.0-1.0 [facility] Comment on above: Order Comment: No: D o not add to previous draw Performed By: #### 0 0121, 14027, 95204, 54283, 11712 #### [facility] [address] [place] [address], [facility] Lymphocytes (Bld) [#/Vol] 1.3 10*3/uL Normal 1.2-4.0 [facility] Comment on above: Order Comment: No: D o not add to previous draw Performed By: #### 0 0121, 64443, 72757, 98195, 89188 #### [facility] [address] [place] [address], [facility] Lymphocytes/100 WBC (Bld) 9.2 % Low 20.0-45.0 [facility] Comment on above: Order Comment: No: D o not add to previous draw Performed By: #### 0 0121, 88812, 62210, 55115, 03292 #### [facility] [address] [facility] [place] [address], [facility] MCH (RBC) [Entitic mass] 28.9 pg Normal 27.0-33.0 [facility] Comment on above: Order Comment: No: D o not add to previous draw Performed By: #### 0 0121, 19859, 67120, 03895, 27622 #### [facility] [address] [place] [address], [place] MCHC (RBC) [Mass/Vol] 32.8 g/dL Normal 32.0-35.0 [facility] Comment on above: Order Comment: No: D o not add to previous draw Performed By: #### 0 0121, 29662, 01747, 42204, 17426 #### [facility] [address] [place] [address], [place] MCV (RBC) [Entitic vol] 88.2 fL Normal 82.0-98.0 [facility] Comment on above: Order Comment: No: D o not add to previous draw Performed By: #### 0 0121, 68849, 98492, 66462, 73417 #### [facility] [address] [place] [address], [facility] Monocytes (Bld) [#/Vol] 1.7 10*3/uL High 0.1-1.0 [facility] Comment on above: Order Comment: No: D o not add to previous draw Performed By: #### 0 0121, 35048, 85502, 85948, 13157 #### [facility] [address] [facility] [place] [address], [facility] MONOS 11.7 % Normal 5.0-12.0 [facility] Comment on above: Order Comment: No: D o not add to previous draw Performed By: #### 0 0121, 15907, 02814, 80794, 04347 #### [facility] [address] [facility] [place] [address], [facility] Neutrophils/100 WBC (Bld) 72.2 % High 40.0-72.0 [facility] Comment on above: Order Comment: No: D o not add to previous draw Performed By: #### 0 0121, 95209, 26615, 26147, 88181 #### [facility] [address] [facility] [place] [address], [facility] Nucleated RBC/100 WBC (Bld) [Ratio] 0 % Normal 0-0 [facility] Comment on above: Order Comment: No: D o not add to previous draw Performed By: #### 0 0121, 58774, 39106, 63442, 28386 #### [facility] [address] [place] [address], [facility] PLAT CNT 215 10*3/uL Normal 150-400 [facility] Comment on above: Order Comment: No: D o not add to previous draw Performed By: #### 0 0121, 22667, 61204, 12786, 16994 #### [facility] [address] [place] [address], [place] RBC (Bld) [#/Vol] 3.91 10*6/uL Low 4.20-5.70 [facility] Comment on above: Order Comment: No: D o not add to previous draw Performed By: #### 0 0121, 89704, 57759, 50253, 72790 #### [facility] [address] [place] [address], [place] WBC (Bld) [#/Vol] 14.17 10*3/uL High 4.00-10.60 [facility] Comment on above: Order Comment: No: D o not add to previous draw Performed By: #### 0 0121, 78684, 12663, 26300, 13656 #### [facility] [address] [place] [address], [place] POC GLUCOSE LABon 03-26-2019 Glucose [Mass/Vol] 129 mg/dL High 70-100 [facility] Comment on above: Performed By: #### 0 0121, 70719, 43774, 37853, 73964 #### [facility] [address] [place] [address], [place] Glucose [Mass/Vol] 129 mg/dL High 70-100 [facility] Comment on above: Performed By: #### 0 0121, 07654, 18844, 39055, 04884 #### [facility] [address] [place] [address], [place] Glucose [Mass/Vol] 130 mg/dL High 70-100 [facility] Comment on above: Performed By: #### 0 0121, 28303, 12713, 75752, 65331 #### [facility] [address] [place] [address], [place] Glucose [Mass/Vol] 91 mg/dL Normal 70-100 [facility] Comment on above: Performed By: #### 0 0121, 25560, 12343, 41157, 08653 #### [address] [address], [facility] PORTABLE CHEST 1 VIEWon 03-01 PORTABLE CHEST 1 VIEW [facility] Department of Radiology [address] [place] [id number] ======== Patient Name: TRACIE CRAIN : 1965 Sex: M Age: Race: NA Pt. Location: [id number] Patient Status: I Ordered Date: 03/26/2019 7:00:00 [...] findings. Electronically signed by:Divya Collins. Transcribed by: [email or web address], User Resident: KAREEM LIAO Electronically Signed by: DIVYA COLLINS @ 03/26/2019 10:03 AM I personally read this/these film(s) with this resident Normal [facility] Comment on above: Order Comment: No: D o not add to previous draw BASIC METABOLIC PANELon 03-01 Calcium [Mass/Vol] 9.1 mg/dL Normal 8.6-10.3 [facility] Comment on above: Order Comment: << On admission If not done in ED>> No: Do not add to previous draw Performed By: #### 0 0121, 56666, 70934, 72007, 37345 #### [facility] [address] [place] [address], [facility] Chloride [Moles/Vol] 98 mmol/L Normal 98-107 [facility] Comment on above: Order Comment: << On admission If not done in ED>> No: Do not add to previous draw Performed By: #### 0 0121, 99018, 14442, 41957, 53028 #### [facility] [address] [place] [address], [place] CO2 [Moles/Vol] 29 mmol/L Normal 21-31 [facility] Comment on above: Order Comment: << On admission If not done in ED>> No: Do not add to previous draw Performed By: #### 0 0121, 05497, 75659, 09516, 53161 #### [facility] [address] [place] [address], [place] Creatinine [Mass/Vol] 1.01 mg/dL Normal 0.70-1.30 [facility] Comment on above: Order Comment: << On admission If not done in ED>> No: Do not add to previous draw Performed By: #### 0 0121, 53014, 33965, 83579, 12272 #### [facility] [address] [place] [address], [place] GFR/1.73 sq M predicted among blacks MDRD (S/P/Bld) [Vol rate/Area] mL/min/{1.73_m2} Normal >60 [facility] Comment on above: Order Comment: << On admission If not done in ED>> No: Do not add to previous draw Performed By: #### 0 0121, 79035, 81546, 48360, 98571 #### [facility] [address] [place] [address], [facility] GFR/1.73 sq M predicted among non-blacks MDRD (S/P/Bld) [Vol rate/Area] mL/min/{1.73_m2} Normal >60 [facility] Comment on above: Order Comment: << On admission If not done in ED>> No: Do not add to previous draw Performed By: #### 0 0121, 86646, 66348, 79771, 68882 #### [facility] [address] [place] [address], [place] Glucose [Mass/Vol] 123 mg/dL High 70-100 [facility] Comment on above: Order Comment: << On admission If not done in ED>> No: Do not add to previous draw Performed By: #### 0 0121, 40902, 26450, 42305, 83861 #### [facility] [address] [place] [address], [place] Potassium [Moles/Vol] 3.9 mmol/L Normal 3.5-5.1 [facility] Comment on above: Order Comment: << On admission If not done in ED>> No: Do not add to previous draw Performed By: #### 0 0121, 87870, 78572, 47161, 13638 #### [facility] [address] [place] [address], [facility] Sodium [Moles/Vol] 134 mmol/L Low 136-145 [facility] Comment on above: Order Comment: << On admission If not done in ED>> No: Do not add to previous draw Performed By: #### 0 0121, 22782, 28496, 96843, 58105 #### [facility] [address] [place] [address], [facility] Urea nitrogen [Mass/Vol] 29 mg/dL High 7-25 [facility] Comment on above: Order Comment: << On admission If not done in ED>> No: Do not add to previous draw Performed By: #### 0 0121, 64097, 35477, 46528, 62335 #### [facility] [address] [place] [address], [facility] CBC W/DIFFon 03-25-2019 ABS BASOPHILS 0.1 10*3/uL Normal 0.0-0.2 [facility] Comment on above: Order Comment: << On admission If not done in ED>> No: Do not add to previous draw Performed By: #### 0 0121, 75370, 26408, 18784, 23383 #### [facility] [address] [place] [address], [facility] ABS NEUTROPHILS 11.2 10*3/uL High 1.6-7.[address] [facility] Comment on above: Order Comment: << On admission If not done in ED>> No: Do not add to previous draw Performed By: #### 0 0121, 94619, 19632, 17666, 09136 #### [facility] [address] [place] Basophils/100 WBC (Bld) 0.9 % Normal 0.0-1.0 [facility] Comment on above: Order Comment: << On admission If not done in ED>> No: Do not add to previous draw Performed By: #### 0 0121, 11668, 15406, 84429, 85616 #### [facility] [address] [place] [address], [facility] Eosinophils (Bld) [#/Vol] 0.1 10*3/uL Normal 0.0-0.5 [facility] Comment on above: Order Comment: << On admission If not done in ED>> No: Do not add to previous draw Performed By: #### 0 0121, 03083, 85359, 20279, 67104 #### [facility] [address] Eosinophils/100 WBC (Bld) 0.9 % Normal 0.0-6.0 [facility] Comment on above: Order Comment: << On admission If not done in ED>> No: Do not add to previous draw Performed By: #### 0 0121, 60957, 70146, 50135, 32487 #### [facility] [address] Erythrocyte distribution width (RBC) [Ratio] 13.4 % Normal 11.5-15.0 [facility] Comment on above: Order Comment: << On admission If not done in ED>> No: Do not add to previous draw Performed By: #### 0 0121, 07027, 59145, 84282, 14765 #### [facility] [address] [place] [address], [facility] GIANT PLATELETS Present Normal [facility] Comment on above: Order Comment: << On admission If not done in ED>> No: Do not add to previous draw Performed By: #### 0 0121, 49117, 60187, 10848, 88185 #### [facility] [address] Hematocrit (Bld) [Volume fraction] 35.4 % Low 39.0-50.0 [facility] Comment on above: Order Comment: << On admission If not done in ED>> No: Do not add to previous draw Performed By: #### 0 0121, 21944, 48835, 70595, 05534 #### [facility] [address] [facility] [place] [address], [facility] Hemoglobin (Bld) [Mass/Vol] 11.1 g/dL Low 13.0-17.0 [facility] Comment on above: Order Comment: << On admission If not done in ED>> No: Do not add to previous draw Performed By: #### 0 0121, 88690, 58450, 77286, 14618 #### [facility] [address] Lymphocytes (Bld) [#/Vol] 0.8 10*3/uL Low 1.2-4.0 [facility] Comment on above: Order Comment: << On admission If not done in ED>> No: Do not add to previous draw Performed By: #### 0 0121, 93854, 42698, 91854, 98196 #### [facility] [address] Lymphocytes/100 WBC (Bld) 6.3 % Low 20.0-45.0 [facility] Comment on above: Order Comment: << On admission If not done in ED>> No: Do not add to previous draw Performed By: #### 0 0121, 18405, 84428, 46984, 64134 #### [facility] [address] [place] [address], [facility] MCH (RBC) [Entitic mass] 28.8 pg Normal 27.0-33.0 [facility] Comment on above: Order Comment: << On admission If not done in ED>> No: Do not add to previous draw Performed By: #### 0 0121, 48373, 12978, 16908, 41074 #### [facility] [address] [facility] [address] MCHC (RBC) [Mass/Vol] 31.4 g/dL Low 32.0-35.0 [facility] Comment on above: Order Comment: << On admission If not done in ED>> No: Do not add to previous draw Performed By: #### 0 0121, 05008, 29589, 14535, 66550 #### [facility] [address] [facility] [place] [address], [facility] MCV (RBC) [Entitic vol] 91.9 fL Normal 82.0-98.0 [facility] Comment on above: Order Comment: << On admission If not done in ED>> No: Do not add to previous draw Performed By: #### 0 0121, 48869, 98047, 24048, 51409 #### [facility] [address] Monocytes (Bld) [#/Vol] 0.7 10*3/uL Normal 0.1-1.0 [facility] Comment on above: Order Comment: << On admission If not done in ED>> No: Do not add to previous draw Performed By: #### 0 0121, 42351, 83784, 39286, 12041 #### [facility] [address] MONOS 5.4 % Normal 5.0-12.0 [facility] Comment on above: Order Comment: << On admission If not done in ED>> No: Do not add to previous draw Performed By: #### 0 0121, 32134, 95096, 28821, 53116 #### [facility] [address] MYELOS 0.9 % High .0-.0 [facility] Comment on above: Order Comment: << On admission If not done in ED>> No: Do not add to previous draw Performed By: #### 0 0121, 32499, 45096, 82434, 05566 #### [facility] [address] [place] [address], [place] Neutrophils/100 WBC (Bld) 85.6 % High 40.0-72.0 [facility] Comment on above: Order Comment: << On admission If not done in ED>> No: Do not add to previous draw Performed By: #### 0 0121, 59422, 60749, 67045, 26095 #### [facility] [address] [place] [address], [place] Nucleated RBC/100 WBC (Bld) [Ratio] 0 % Normal 0-0 [facility] Comment on above: Order Comment: << On admission If not done in ED>> No: Do not add to previous draw Performed By: #### 0 0121, 75517, 38268, 60962, 43034 #### [facility] [address] [place] [address], [place] PLAT CNT 196 10*3/uL Normal 150-400 [facility] Comment on above: Order Comment: << On admission If not done in ED>> No: Do not add to previous draw Performed By: #### 0 0121, 30801, 95638, 44821, 80755 #### [facility] [address] [place] [address], [place] RBC (Bld) [#/Vol] 3.85 10*6/uL Low 4.20-5.70 [facility] Comment on above: Order Comment: << On admission If not done in ED>> No: Do not add to previous draw Performed By: #### 0 0121, 21900, 42217, 00228, 21589 #### [facility] [address] [place] [address], [place] WBC (Bld) [#/Vol] 13.09 10*3/uL High 4.00-10.60 [facility] Comment on above: Order Comment: << On admission If not done in ED>> No: Do not add to previous draw Performed By: #### 0 0121, 04379, 46623, 04421, 01296 #### [facility] [address] [place] [address], [place] MAGNESIUM BLOODon 03-25-2019 Magnesium [Mass/Vol] 2.3 mg/dL Normal 1.9-2.7 [facility] Comment on above: Order Comment: << On admission If not done in ED>> No: Do not add to previous draw Performed By: #### 0 0121, 92216, 92101, 73677, 80533 #### [facility] [address] [place] [address], [place] PHOSPHORUS BLOODon 9 Phosphate [Mass/Vol] 2.6 mg/dL Normal 2.5-5.0 [facility] Comment on above: Order Comment: << On admission If not done in ED>> No: Do not add to previous draw Performed By: #### 0 0121, 92795, 58345, 15637, 97251 #### [facility] [address] [place] [address], [place] POC GLUCOSE LABon 03-25-2019 Glucose [Mass/Vol] 103 mg/dL High 70-100 [facility] Comment on above: Performed By: #### 0 0121, 01436, 15939, 23925, 26239 #### [facility] [address] [place] [address], [place] Glucose [Mass/Vol] 113 mg/dL High 70-100 [facility] Comment on above: Performed By: #### 0 0121, 49676, 34867, 97973, 51177 #### [facility] [address] [place] [address], [place] Glucose [Mass/Vol] 120 mg/dL High 70-100 [facility] Comment on above: Performed By: #### 0 0121, 10644, 17398, 32075, 21[address] #### [place] [address], [facility] Glucose [Mass/Vol] 110 mg/dL High 70-100 [facility] Comment on above: Performed By: #### 0 0121, 23103, 13072, 60341, 48571 #### [facility] [address] PORTABLE CHEST 1 VIEWon 03-01 PORTABLE CHEST 1 VIEW [facility] Department of Radiology [address] [place] [phone] ======== Patient Name: TRACIE CRAIN : 1965 Sex: M Age: Race: NA Pt. Location: [id number] Patient Status: I Ordered Date: 03/25/2019 7:00:00 [...] findings. Electronically signed by:Divya Collins. Transcribed by: [email or web address], User Resident: KAREEM LIAO Electronically Signed by: DIVYA COLLINS @ 03/25/2019 11:10 AM I personally read this/these film(s) with this resident Normal [facility] Comment on above: Order Comment: No: D o not add to previous draw BASIC METABOLIC PANELon - Calcium [Mass/Vol] 9.0 mg/dL Normal 8.6-10.3 [facility] Comment on above: Order Comment: << On admission If not done in ED>> No: Do not add to previous draw Performed By: #### 0 0121, 92651, 36270, 16688, 80618 #### [facility] [address] [facility] [place] [address], [facility] Chloride [Moles/Vol] 96 mmol/L Low 98-107 [facility] Comment on above: Order Comment: << On admission If not done in ED>> No: Do not add to previous draw Performed By: #### 0 0121, 32423, 74743, 11560, 56945 #### [facility] [address] [place] [address], [facility] CO2 [Moles/Vol] 30 mmol/L Normal 21-31 [facility] Comment on above: Order Comment: << On admission If not done in ED>> No: Do not add to previous draw Performed By: #### 0 0121, 31718, 02729, 34742, 83875 #### [facility] [address] [place] [address], [place] Creatinine [Mass/Vol] 0.89 mg/dL Normal 0.70-1.30 [facility] Comment on above: Order Comment: << On admission If not done in ED>> No: Do not add to previous draw Performed By: #### 0 0121, 93156, 23465, 42052, 70351 #### [facility] [address] [place] [address], [place] GFR/1.73 sq M predicted among blacks MDRD (S/P/Bld) [Vol rate/Area] mL/min/{1.73_m2} Normal >60 [facility] Comment on above: Order Comment: << On admission If not done in ED>> No: Do not add to previous draw Performed By: #### 0 0121, 98190, 05969, 47562, 18550 #### [facility] [address] [place] [address], [place] GFR/1.73 sq M predicted among non-blacks MDRD (S/P/Bld) [Vol rate/Area] mL/min/{1.73_m2} Normal >60 [facility] Comment on above: Order Comment: << On admission If not done in ED>> No: Do not add to previous draw Performed By: #### 0 0121, 85039, 78677, 92550, 12256 #### [facility] [address] [place] [address], [place] Glucose [Mass/Vol] 98 mg/dL Normal 70-100 [facility] Comment on above: Order Comment: << On admission If not done in ED>> No: Do not add to previous draw Performed By: #### 0 0121, 38682, 43739, 46005, 98422 #### [facility] [address] Potassium [Moles/Vol] 3.2 mmol/L Low 3.5-5.1 [facility] Comment on above: Order Comment: << On admission If not done in ED>> No: Do not add to previous draw Performed By: #### 0 0121, 32316, 57931, 18051, 14167 #### [facility] [address] Sodium [Moles/Vol] 135 mmol/L Low 136-145 [facility] Comment on above: Order Comment: << On admission If not done in ED>> No: Do not add to previous draw Performed By: #### 0 0121, 25225, 89089, 70164, 75042 #### [facility] [address] Urea nitrogen [Mass/Vol] 29 mg/dL High 7-25 [facility] Comment on above: Order Comment: << On admission If not done in ED>> No: Do not add to previous draw Performed By: #### 0 0121, 21404, 97062, 38012, 63755 #### [facility] [address] CBC W/DIFFon 03-24-2019 ABS BASOPHILS 0.1 10*3/uL Normal 0.0-0.2 [facility] Comment on above: Order Comment: << On admission If not done in ED>> No: Do not add to previous draw Performed By: #### 0 0121, 91571, 56586, 97418, 59582 #### [facility] [address] [place] [address], [facility] ABS IMM GRANS 0.1 10*3/uL Normal 0.0-0.2 [facility] Comment on above: Order Comment: << On admission If not done in ED>> No: Do not add to previous draw Performed By: #### 0 0121, 09995, 30085, 51261, 60196 #### [facility] [address] [place] [address], [facility] ABS NEUTROPHILS 6.9 10*3/uL Normal 1.6-7.6 [facility] Comment on above: Order Comment: << On admission If not done in ED>> No: Do not add to previous draw Performed By: #### 0 0121, 72113, 15520, 19776, 04168 #### [facility] [address] [facility] [place] [address], [facility] Basophils/100 WBC (Bld) 0.8 % Normal 0.0-1.0 [facility] Comment on above: Order Comment: << On admission If not done in ED>> No: Do not add to previous draw Performed By: #### 0 0121, 40448, 27770, 02572, 47641 #### [facility] [address] [facility] [place] [address], [facility] Eosinophils (Bld) [#/Vol] 0.3 10*3/uL Normal 0.0-0.5 [facility] Comment on above: Order Comment: << On admission If not done in ED>> No: Do not add to previous draw Performed By: #### 0 0121, 34711, 85179, 92366, 82804 #### [facility] [address] [facility] [place] [address], [facility] Eosinophils/100 WBC (Bld) 2.8 % Normal 0.0-6.0 [facility] Comment on above: Order Comment: << On admission If not done in ED>> No: Do not add to previous draw Performed By: #### 0 0121, 03564, 77600, 68327, 28686 #### [facility] [address] [facility] [place] [address], [facility] Erythrocyte distribution width (RBC) [Ratio] 13.5 % Normal 11.5-15.0 [facility] Comment on above: Order Comment: << On admission If not done in ED>> No: Do not add to previous draw Performed By: #### 0 0121, 88189, 62258, 99707, 67770 #### [facility] [address] [place] [address], [facility] Hematocrit (Bld) [Volume fraction] 33.0 % Low 39.0-50.0 [facility] Comment on above: Order Comment: << On admission If not done in ED>> No: Do not add to previous draw Performed By: #### 0 0121, 32392, 99318, 94557, 81570 #### [facility] [address] [place] [address], [facility] Hemoglobin (Bld) [Mass/Vol] 10.4 g/dL Low 13.0-17.0 [facility] Comment on above: Order Comment: << On admission If not done in ED>> No: Do not add to previous draw Performed By: #### 0 0121, 68205, 55686, 40059, 53031 #### [facility] [address] [facility] [address] IMMATURE GRANS 1.2 % High 0.0-1.0 [facility] Comment on above: Order Comment: << On admission If not done in ED>> No: Do not add to previous draw Performed By: #### 0 0121, 42253, 02588, 72890, 91811 #### [facility] [address] [place] [address], [facility] Lymphocytes (Bld) [#/Vol] 1.5 10*3/uL Normal 1.2-4.0 [facility] Comment on above: Order Comment: << On admission If not done in ED>> No: Do not add to previous draw Performed By: #### 0 0121, 17005, 33479, 30862, 04177 #### [facility] [address] [place] [address], [facility] Lymphocytes/100 WBC (Bld) 14.4 % Low 20.0-45.0 [facility] Comment on above: Order Comment: << On admission If not done in ED>> No: Do not add to previous draw Performed By: #### 0 0121, 75928, 69593, 56188, 21642 #### [facility] [address] [facility] [place] [address], [facility] MCH (RBC) [Entitic mass] 28.8 pg Normal 27.0-33.0 [facility] Comment on above: Order Comment: << On admission If not done in ED>> No: Do not add to previous draw Performed By: #### 0 0121, 93091, 18774, 82348, 96936 #### [facility] [address] [facility] [place] [address], [facility] MCHC (RBC) [Mass/Vol] 31.5 g/dL Low 32.0-35.0 [facility] Comment on above: Order Comment: << On admission If not done in ED>> No: Do not add to previous draw Performed By: #### 0 0121, 14951, 32172, 42037, 90843 #### [facility] [address] [facility] [place] [address], [facility] MCV (RBC) [Entitic vol] 91.4 fL Normal 82.0-98.0 [facility] Comment on above: Order Comment: << On admission If not done in ED>> No: Do not add to previous draw Performed By: #### 0 0121, 25334, 88369, 31433, 98887 #### [facility] [address] [facility] [place] [address], [facility] Monocytes (Bld) [#/Vol] 1.3 10*3/uL High 0.1-1.0 [facility] Comment on above: Order Comment: << On admission If not done in ED>> No: Do not add to previous draw Performed By: #### 0 0121, 71193, 85127, 02541, 55251 #### [facility] [address] [place] [id number], [facility] MONOS 13.1 % High 5.0-12.0 [facility] Comment on above: Order Comment: << On admission If not done in ED>> No: Do not add to previous draw Performed By: #### 0 0121, 59209, 02572, 37925, 07705 #### [facility] [address] [place] [address], [facility] Neutrophils/100 WBC (Bld) 67.7 % Normal 40.0-72.0 [facility] Comment on above: Order Comment: << On admission If not done in ED>> No: Do not add to previous draw Performed By: #### 0 0121, 58150, 07570, 19801, 68381 #### [facility] [address] [place] [address], [facility] Nucleated RBC/100 WBC (Bld) [Ratio] 0 % Normal 0-0 [facility] Comment on above: Order Comment: << On admission If not done in ED>> No: Do not add to previous draw Performed By: #### 0 0121, 12101, 32949, 50344, 19429 #### [facility] [address] [place] [address], [facility] PLAT CNT 166 10*3/uL Normal 150-400 [facility] Comment on above: Order Comment: << On admission If not done in ED>> No: Do not add to previous draw Performed By: #### 0 0121, 70738, 12651, 35184, 00320 #### [facility] [address] [place] [id number], [facility] RBC (Bld) [#/Vol] 3.61 10*6/uL Low 4.20-5.70 [facility] Comment on above: Order Comment: << On admission If not done in ED>> No: Do not add to previous draw Performed By: #### 0 0121, 28363, 46775, 94811, 95371 #### [facility] [address] [facility] [place] [address], [facility] WBC (Bld) [#/Vol] 10.21 10*3/uL Normal 4.00-10.60 [facility] Comment on above: Order Comment: << On admission If not done in ED>> No: Do not add to previous draw Performed By: #### 0 0121, 31866, 64227, 55932, 94712 #### [facility] [address] [place] [address], [facility] MAGNESIUM BLOODon 03-24-2019 Magnesium [Mass/Vol] 2.4 mg/dL Normal 1.9-2.7 [facility] Comment on above: Order Comment: << On admission If not done in ED>> No: Do not add to previous draw Performed By: #### 0 0121, 31417, 05456, 58713, 70403 #### [facility] [address] [facility] [place] [address], [facility] PHOSPHORUS BLOODon 9 Phosphate [Mass/Vol] 2.9 mg/dL Normal 2.5-5.0 [facility] Comment on above: Order Comment: << On admission If not done in ED>> No: Do not add to previous draw Performed By: #### 0 0121, 89158, 98766, 48885, 80593 #### [facility] [address] [facility] [place] [address], [facility] POC GLUCOSE LABon 03-24-2019 Glucose [Mass/Vol] 107 mg/dL High 70-100 [facility] Comment on above: Performed By: #### 0 0121, 37555, 91202, 57312, 14011 #### [facility] [address] [place] [address], [facility] PORTABLE CHEST 1 VIEWon 03-01 PORTABLE CHEST 1 VIEW [facility] Department of Radiology [address] [place] [id number] ======== Patient Name: TRACIE CRAIN : 1965 Sex: M Age: Race: NA Pt. Location: [id number] Patient Status: I Ordered Date: 03/24/2019 4:00:00 [...] recommended. Electronically signed by:Scottie Fall. Transcribed by: [id number], User Resident: Electronically Signed by: SCOTTIE FALL @ 03/24/2019 10:43 AM Normal [facility] Comment on above: Order Comment: << On admission If not done in ED>> No: Do not add to previous draw POC GLUCOSE LABon 03-23-2019 Glucose [Mass/Vol] 150 mg/dL High 70-100 [facility] Comment on above: Performed By: #### 0 0121, 11120, 96645, 40281, 84116 #### [facility] [address] [place] [address], [place] Glucose [Mass/Vol] 110 mg/dL High 70-100 [facility] Comment on above: Performed By: #### 0 0121, 19163, 97686, 30587, 44472 #### [facility] [address] [place] [address], [place] Glucose [Mass/Vol] 112 mg/dL High 70-100 [facility] Comment on above: Performed By: #### 0 0121, 86518, 24985, 08938, 36898 #### [facility] [address] [place] [address], [place] Glucose [Mass/Vol] 93 mg/dL Normal 70-100 [facility] Comment on above: Performed By: #### 0 0121, 53621, 57630, 31407, 95537 #### [facility] [address] [place] [address], [place] ARTERIAL BLOOD GAS WITH ICAo n 03-22-2019 BASE EXCESS 4 mmol/L High -2-3 [facility] Comment on above: Performed By: #### 0 0121, 76749, 95657, 07820, 71836 #### [facility] [address] [place] [address], [place] [employer] NASAL CANNULA Normal [facility] Comment on above: Performed By: #### 0 0121, 44301, 75838, 94939, 06324 #### [facility] [address] [place] [address], [facility] HCO3 (Bld) [Moles/Vol] 27 mmol/L Normal 21-28 [facility] Comment on above: Performed By: #### 0 0121, 15170, 57086, 84479, 78202 #### [facility] [address] [place] [address], [place] IONIZED CALCIUM 1.14 mmol/L Normal 1.13-1.32 [facility] Comment on above: Performed By: #### 0 0121, 88226, 48232, 11226, 11284 #### [facility] [address] [place] [address], [facility] LPM 6.0 LPM Normal [facility] Comment on above: Performed By: #### 0 0121, 31541, 43943, 26317, 06589 #### [facility] [address] [place] [address], [facility] Oxygen (Bld) [Partial pressure] 70 mm[Hg] Low 83-108 [facility] Comment on above: Performed By: #### 0 0121, 44051, 49430, 45123, 28641 #### [facility] [address] [place] [address], [facility] Oxygen saturation in Blood 93.0 % Low 94.0-97.0 [facility] Comment on above: Performed By: #### 0 0121, 02732, 14185, 74061, 46656 #### [facility] [address] [place] [address], [place] PCO2 35 mmHg Normal 35-45 [facility] Comment on above: Performed By: #### 0 0121, 52329, 76894, 09150, 31336 #### [facility] [address] [place] [address], [place] pH (Bld) 7.50 [pH] High 7.35-7.45 [facility] Comment on above: Result Comment: PLEA SE NOTE: Effective 12/02/18, reference ranges for Respiratory GEM analyzers running arterial blood have been updated to reflect the technical professional's published reference ranges. Performed By: #### 0 0121, 22092, 74690, 10216, 18288 #### [facility] [address] [place] [address], [place] BASIC METABOLIC PANELon 06-2 Calcium [Mass/Vol] 8.9 mg/dL Normal 8.6-10.3 [facility] Comment on above: Order Comment: << On admission If not done in ED>> No: Do not add to previous draw Performed By: #### 0 0121, 17587, 01548, 47475, 57192 #### [facility] [address] [place] [address], [facility] Chloride [Moles/Vol] 101 mmol/L Normal 98-107 [facility] Comment on above: Order Comment: << On admission If not done in ED>> No: Do not add to previous draw Performed By: #### 0 0121, 35397, 16900, 66248, 82886 #### [facility] [address] [place] [address], [facility] CO2 [Moles/Vol] 28 mmol/L Normal 21-31 [facility] Comment on above: Order Comment: << On admission If not done in ED>> No: Do not add to previous draw Performed By: #### 0 0121, 56976, 79622, 73992, 41886 #### [facility] [address] [place] [address], [place] Creatinine [Mass/Vol] 1.29 mg/dL Normal 0.70-1.30 [facility] Comment on above: Order Comment: << On admission If not done in ED>> No: Do not add to previous draw Performed By: #### 0 0121, 06314, 41163, 31286, 53685 #### [facility] [address] [place] [address], [facility] GFR/1.73 sq M predicted among blacks MDRD (S/P/Bld) [Vol rate/Area] mL/min/{1.73_m2} Normal >60 [facility] Comment on above: Order Comment: << On admission If not done in ED>> No: Do not add to previous draw Performed By: #### 0 0121, 83657, 79764, 56678, 94772 #### [facility] [address] [facility] [place] [address], [facility] GFR/1.73 sq M predicted among non-blacks MDRD (S/P/Bld) [Vol rate/Area] 58 ml/min/1.73sq m Abnormal >60 [facility] Comment on above: Order Comment: << On admission If not done in ED>> No: Do not add to previous draw Performed By: #### 0 0121, 69599, 90122, 75741, 32990 #### [facility] [address] [place] [address], [facility] Glucose [Mass/Vol] 111 mg/dL High 70-100 [facility] Comment on above: Order Comment: << On admission If not done in ED>> No: Do not add to previous draw Performed By: #### 0 0121, 83930, 22415, 48689, 06037 #### [facility] [address] [facility] [place] [address], [facility] Sodium [Moles/Vol] 139 mmol/L Normal 136-145 [facility] Comment on above: Order Comment: << On admission If not done in ED>> No: Do not add to previous draw Performed By: #### 0 0121, 01383, 19606, 25803, 83243 #### [facility] [address] [facility] [place] [address], [facility] Urea nitrogen [Mass/Vol] 23 mg/dL Normal 7-25 [facility] Comment on above: Order Comment: << On admission If not done in ED>> No: Do not add to previous draw Performed By: #### 0 0121, 75071, 77778, 90125, 47762 #### [facility] [address] [place] [address], [facility] CBC COMPLETE BLOOD COUNTon 0 - Erythrocyte distribution width (RBC) [Ratio] 13.4 % Normal 11.5-15.0 [facility] Comment on above: Order Comment: << On admission If not done in ED>> No: Do not add to previous draw Performed By: #### 0 0121, 58875, 49996, 29026, 46329 #### [facility] [address] [place] [address], [facility] Hematocrit (Bld) [Volume fraction] 31.2 % Low 39.0-50.0 [facility] Comment on above: Order Comment: << On admission If not done in ED>> No: Do not add to previous draw Performed By: #### 0 0121, 82534, 59256, 62342, 12231 #### [facility] [address] [place], [place] [address] [place] [address] Hemoglobin (Bld) [Mass/Vol] 10.3 g/dL Low 13.0-17.0 [facility] Comment on above: Order Comment: << On admission If not done in ED>> No: Do not add to previous draw Performed By: #### 0 0121, 44271, 13008, 58243, 06139 #### [facility] [address] [place] [address], [facility] MCH (RBC) [Entitic mass] 28.9 pg Normal 27.0-33.0 [facility] Comment on above: Order Comment: << On admission If not done in ED>> No: Do not add to previous draw Performed By: #### 0 0121, 46345, 73264, 54934, 21502 #### [facility] [address] [place] [address], [facility] MCHC (RBC) [Mass/Vol] 33.0 g/dL Normal 32.0-35.0 [facility] Comment on above: Order Comment: << On admission If not done in ED>> No: Do not add to previous draw Performed By: #### 0 0121, 41379, 84020, 94484, 58436 #### [facility] [address] [place] [address], [facility] MCV (RBC) [Entitic vol] 87.4 fL Normal 82.0-98.0 [facility] Comment on above: Order Comment: << On admission If not done in ED>> No: Do not add to previous draw Performed By: #### 0 0121, 12066, 86853, 73185, 89061 #### [facility] [address] Nucleated RBC/100 WBC (Bld) [Ratio] 0 % Normal 0-0 [facility] Comment on above: Order Comment: << On admission If not done in ED>> No: Do not add to previous draw Performed By: #### 0 0121, 62550, 71608, 08562, 13418 #### [facility] [address] [place] [address], [facility] PLAT CNT 88 10*3/uL Low 150-400 [facility] Comment on above: Order Comment: << On admission If not done in ED>> No: Do not add to previous draw Performed By: #### 0 0121, 50311, 26534, 73091, 37432 #### [facility] [address] [place] [id number], [facility] RBC (Bld) [#/Vol] 3.57 10*6/uL Low 4.20-5.70 [facility] Comment on above: Order Comment: << On admission If not done in ED>> No: Do not add to previous draw Performed By: #### 0 0121, 83398, 57417, 51892, 73000 #### [facility] [address] [place] [address], [facility] WBC (Bld) [#/Vol] 13.95 10*3/uL High 4.00-10.60 [facility] Comment on above: Order Comment: << On admission If not done in ED>> No: Do not add to previous draw Performed By: #### 0 0121, 46307, 73959, 26102, 04326 #### [facility] [address] [place] [address], [facility] COOXIMETRYon 03-22-2019 COHB 2 % Normal [facility] Comment on above: Performed By: #### 0 0121, 55043, 22952, 97106, 57338 #### [facility] [address] [place] [address], [facility] METHB 1 % Normal [facility] Comment on above: Performed By: #### 0 0121, 67171, 36604, 04841, 65049 #### [facility] [address] [place] [address], [facility] Oxygen saturation in Blood 56.5 % Low 65.0-75.0 [facility] Comment on above: Performed By: #### 0 0121, 40440, 75315, 75656, 78792 #### [facility] [address] [place] [address], [facility] THB 9.9 g/dL Normal [facility] Comment on above: Performed By: #### 0 0121, 40593, 84889, 52875, 25896 #### [facility] [address] [place] [address], [facility] MAGNESIUM BLOODon 03-22-2019 Magnesium [Mass/Vol] 2.0 mg/dL Normal 1.9-2.7 [facility] Comment on above: Order Comment: << On admission If not done in ED>> No: Do not add to previous draw Performed By: #### 0 0121, 70388, 25793, 88371, 88203 #### [facility] [address] [place] [address], [place] Magnesium [Mass/Vol] 1.9 mg/dL Normal 1.9-2.7 [facility] Comment on above: Order Comment: << On admission If not done in ED>> No: Do not add to previous draw Performed By: #### 0 0121, 17550, 20386, 14579, 77503 #### [facility] [address] [place] [address], [place] PHOSPHORUS BLOODon 9 Phosphate [Mass/Vol] 3.6 mg/dL Normal 2.5-5.0 [facility] Comment on above: Order Comment: << On admission If not done in ED>> No: Do not add to previous draw Performed By: #### 0 0121, 84909, 72230, 48963, 63122 #### [facility] [address] [place] [address], [place] POC GLUCOSE LABon 03-22-2019 Glucose [Mass/Vol] 111 mg/dL High 70-100 [facility] Comment on above: Performed By: #### 0 0121, 62168, 44703, 84575, 48099 #### [facility] [address] [place] [address], [place] Glucose [Mass/Vol] 108 mg/dL High 70-100 [facility] Comment on above: Performed By: #### 0 0121, 40245, 50990, 62157, 40125 #### [facility] [address] [place] [address], [place] Glucose [Mass/Vol] 109 mg/dL High 70-100 [facility] Comment on above: Performed By: #### 0 0121, 90429, 24729, 98425, 64176 #### [facility] [address] [place] [address], [place] Glucose [Mass/Vol] 99 mg/dL Normal 70-100 [facility] Comment on above: Performed By: #### 0 0121, 52928, 36831, 64398, 16980 #### [facility] [address] [facility] [place] [address], [facility] Glucose [Mass/Vol] 91 mg/dL Normal 70-100 [facility] Comment on above: Performed By: #### 0 0121, 13874, 41605, 67597, 00476 #### [facility] [address] [facility] [place] [address], [facility] PORTABLE CHEST 1 VIEWon 03-01 PORTABLE CHEST 1 VIEW [facility] Department of Radiology [address] [place] [id number] ======== Patient Name: TRACIE CRAIN : 1965 Sex: M Age: Race: NA Pt. Location: [id number] Patient Status: I Ordered Date: 03/22/2019 5:00:00 [...] removal of endotracheal and enteric tubes. Right-sided Ben Wheeler-Sher catheter is again seen with tip overlying [...] Small left pleural effusion, unchanged. 3. Right-sided Ben Wheeler-Sher catheter with tip projecting over the pulmonary trunk, unchanged. 4. Redemonstration of 2 chest tubes on the right, unchanged. Approved by:Cynthia Finley on 03/22/2019 8:06 AM EDT. I, Yenni Osuna, have reviewed the images and report and concur with these findings. Electronically signed by:Yenni Osuna. Transcribed by: [email or web address], User Resident: CYNTHIA FINLEY Electronically Signed by: YENNI OSUNA @ 03/22/2019 01:07 PM I personally read this/these film(s) with this resident Normal [facility] Comment on above: Order Comment: << On admission If not done in ED>> No: Do not add to previous draw POTASSIUM BLOODon 03-22-2019 Potassium [Moles/Vol] 3.1 mmol/L Low 3.5-5.1 [facility] Comment on above: Order Comment: << On admission If not done in ED>> No: Do not add to previous draw Performed By: #### 0 0121, 90459, 17471, 50656, 53960 #### [facility] [address] PROTHROMBIN TIMEon 9 INR Coag (PPP) [Relative time] 1.37 {INR} High 0.91-1.16 [facility] Comment on above: Order Comment: << [...] CHEST 1995;[id number]. Performed By: #### 0 0121, 18976, 16924, 48368, 10081 #### [facility] [address] [employer] [address] PT Coag (PPP) [Time] 16.9 s High 12.3-14.8 [facility] Comment on above: Order Comment: << On admission If not done in ED>> No: Do not add to previous draw Result Comment: ALL RESULTS MUST BE INTERPRETED WITH RESPECT TO BLOOD DRAWING ARTIFACT OR DILUTION ERROR OF ANTICOAGULANT AT THE TIME OF SAMPLING. Performed By: #### 0 0121, 27451, 80019, 37499, 00911 #### [facility] [address] [place] [address], [facility] ARTERIAL BLOOD GAS W/COOXon 03-21-2019 BASE EXCESS 1 mmol/L Normal -2-3 [facility] Comment on above: Performed By: #### 0 0121, 11010, 55378, 33829, 00138 #### [facility] [address] [place] [address], [facility] COHB 1.4 % Normal 0.0-1.5 [facility] Comment on above: Performed By: #### 0 0121, 71028, 12597, 72753, 09633 #### [facility] [address] [place] [address], [facility] FIO2 40 % Normal [facility] Comment on above: Performed By: #### 0 0121, 67410, 19207, 72366, 71340 #### [facility] [address] [place] [address], [facility] HCO3 (Bld) [Moles/Vol] 24 mmol/L Normal 21-28 [facility] Comment on above: Performed By: #### 0 0121, 27550, 95039, 99224, 10617 #### [facility] [address] [place] [address], [facility] METHB 1.1 % Normal 0.0-1.5 [facility] Comment on above: Performed By: #### 0 0121, 94060, 41031, 04210, 43577 #### [facility] [address] [facility] [place] [address], [facility] MIN VOLUME 13.1 Normal [facility] Comment on above: Performed By: #### 0 0121, 09448, 86533, 96182, 27335 #### [facility] [address] [facility] [place] [address], [facility] MODALITY Positive Normal [facility] Comment on above: Performed By: #### 0 0121, 35049, 53097, 52646, 58779 #### [facility] [address] [place] [address], [facility] Oxygen (Bld) [Partial pressure] 86 mm[Hg] Normal 83-108 [facility] Comment on above: Performed By: #### 0 0121, 30331, 48957, 82267, 24908 #### [facility] [address] [place] [address], [facility] Oxygen saturation in Blood 94.8 % Normal 94.0-97.0 [facility] Comment on above: Performed By: #### 0 0121, 30056, 36576, 82948, 32228 #### [facility] [address] [place] [address], [facility] PCO2 32 mmHg Low 35-45 [facility] Comment on above: Performed By: #### 0 0121, 94965, 80986, 33058, 91723 #### [facility] [address] [place] [address], [facility] PEEP 8.0 CMH20 Normal [facility] Comment on above: Performed By: #### 0 0121, 64205, 74038, 37105, 71842 #### [facility] [address] [place] [address], [facility] pH (Bld) 7.49 [pH] High 7.35-7.45 [facility] Comment on above: Result Comment: KINJAL REYNOSO NOTE: Effective 12/02/18, reference ranges for Respiratory GEM analyzers running arterial blood have been updated to reflect the technical professional's published reference ranges. Performed By: #### 0 0121, 37022, 08948, 39390, 98038 #### [facility] [address] [place] [address], [facility] PRESSURE SUPPORT 5 Normal [facility] Comment on above: Performed By: #### 0 0121, 49107, 20188, 75995, 91377 #### [facility] [address] [place] [address], [facility] THB 10.3 g/dL Low 12.0-16.3 [facility] Comment on above: Performed By: #### 0 0121, 05484, 31041, 35152, 01777 #### [facility] [address] [place] [address], [facility] ARTERIAL BLOOD GAS WITH ICAo n 03-21-2019 BASE EXCESS 4 mmol/L High -2-3 [facility] Comment on above: Performed By: #### 0 0121, 84841, 81391, 58302, 03151 #### [facility] [address] [place] [address], [place] [employer] [place] Normal [facility] Comment on above: Performed By: #### 0 0121, 32682, 68522, 71112, 37179 #### [facility] [address] [place] [address], [place] HCO3 (Bld) [Moles/Vol] 27 mmol/L Normal 21-28 [facility] Comment on above: Performed By: #### 0 0121, 91157, 02884, 69010, 55971 #### [facility] [address] [place] [address], [place] IONIZED CALCIUM 1.17 mmol/L Normal 1.13-1.32 [facility] Comment on above: Performed By: #### 0 0121, 53330, 50107, 25666, 44790 #### [facility] [address] [place] [address], [place] LPM 6.0 LPM Normal [facility] Comment on above: Performed By: #### 0 0121, 55211, 21498, 74554, 72620 #### [facility] [address] [place] [address], [place] Oxygen (Bld) [Partial pressure] 67 mm[Hg] Low 83-108 [facility] Comment on above: Performed By: #### 0 0121, 48046, 91100, 13699, 95463 #### [facility] [address] [place] [address], [place] Oxygen saturation in Blood 92.7 % Low 94.0-97.0 [facility] Comment on above: Performed By: #### 0 0121, 42479, 30880, 16434, 12098 #### [facility] [address] [place] [address], [facility] PCO2 36 mmHg Normal 35-45 [facility] Comment on above: Performed By: #### 0 0121, 32375, 85097, 36189, 30412 #### [facility] [address] [place] [address], [facility] pH (Bld) 7.49 [pH] High 7.35-7.45 [facility] Comment on above: Result Comment: KINJAL REYNOSO NOTE: Effective 12/02/18, reference ranges for Respiratory GEM analyzers running arterial blood have been updated to reflect the technical professional's published reference ranges. Performed By: #### 0 0121, 82941, 06706, 97236, 31464 #### [facility] [address] [place] [address], [facility] BASE EXCESS 1 mmol/L Normal -2-3 [facility] Comment on above: Performed By: #### 0 0121, 07919, 56680, 16687, 84083 #### [facility] [address] [place] [address], [place] [employer] VENT[employer] Normal [facility] Comment on above: Performed By: #### 0 0121, 59528, 00273, 77142, 32116 #### [facility] [address] [place] [address], [place] FIO2 40 % Normal [facility] Comment on above: Performed By: #### 0 0121, 86996, 11531, 59396, 31288 #### [facility] [address] [place] [address], [place] HCO3 (Bld) [Moles/Vol] 24 mmol/L Normal 21-28 [facility] Comment on above: Performed By: #### 0 0121, 93936, 02194, 79136, 18151 #### [facility] [address] [place] [address], [place] IONIZED CALCIUM 1.07 mmol/L Low 1.13-1.32 [facility] Comment on above: Performed By: #### 0 0121, 90304, 58050, 96574, 23422 #### [facility] [address] [place] [address], [place] MIN VOLUME 15.6 Normal [facility] Comment on above: Performed By: #### 0 0121, 05549, 30979, 28948, 17481 #### [facility] [address] [place] [address], [place] MODALITY Positive Normal [facility] Comment on above: Performed By: #### 0 0121, 16324, 01339, 19959, 67323 #### [facility] [address] [place] [address], [place] Oxygen (Bld) [Partial pressure] 89 mm[Hg] Normal 83-108 [facility] Comment on above: Performed By: #### 0 0121, 57268, 28029, 87545, 18202 #### [facility] [address] [place] [address], [place] Oxygen saturation in Blood 94.7 % Normal 94.0-97.0 [facility] Comment on above: Performed By: #### 0 0121, 83440, 12645, 65321, 99985 #### [facility] [address] [place] [address], [place] PCO2 30 mmHg Low 35-45 [facility] Comment on above: Performed By: #### 0 0121, 51429, 19309, 78579, 70522 #### [facility] [address] [place] [address], [place] PEEP 8.0 CMH20 Normal [facility] Comment on above: Performed By: #### 0 0121, 07159, 05314, 02861, 15919 #### [facility] [address] [place] [address], [facility] pH (Bld) 7.51 [pH] High 7.35-7.45 [facility] Comment on above: Result Comment: KINJAL REYNOSO NOTE: Effective 12/02/18, reference ranges for Respiratory GEM analyzers running arterial blood have been updated to reflect the technical professional's published reference ranges. Performed By: #### 0 0121, 93473, 90761, 80037, 38236 #### [facility] [address] [place] [address], [facility] PRESSURE SUPPORT 10 Normal [facility] Comment on above: Performed By: #### 0 0121, 01537, 45388, 90250, 06523 #### [facility] [address] [place] [address], [facility] BASE EXCESS 0 mmol/L Normal -2-3 [facility] Comment on above: Performed By: #### 0 0121, 22718, 50324, 39583, 27241 #### [facility] [address] [place] [address], [facility] [employer] MV Normal [facility] Comment on above: Performed By: #### 0 0121, 59370, 06890, 26874, 44893 #### [facility] [address] [place] [address], [facility] FIO2 40 % Normal [facility] Comment on above: Performed By: #### 0 0121, 83598, 73074, 47880, 67586 #### [facility] [address] [place] [address], [facility] HCO3 (Bld) [Moles/Vol] 23 mmol/L Normal 21-28 [facility] Comment on above: Performed By: #### 0 0121, 04871, 70716, 42611, 37931 #### [facility] [address] [place] [address], [facility] IONIZED CALCIUM 1.07 mmol/L Low 1.13-1.32 [facility] Comment on above: Performed By: #### 0 0121, 24816, 85751, 18772, 14955 #### [facility] [address] [place] [address], [facility] MIN VOLUME 17.0 Normal [facility] Comment on above: Performed By: #### 0 0121, 93357, 10039, 35656, 84934 #### [facility] [address] [place] [address], [facility] MODALITY AC Normal [facility] Comment on above: Performed By: #### 0 0121, 83113, 10367, 73091, 80753 #### [facility] [address] [place] [address], [facility] Oxygen (Bld) [Partial pressure] 94 mm[Hg] Normal 83-108 [facility] Comment on above: Performed By: #### 0 0121, 15334, 16283, 42005, 38424 #### [facility] [address] [place] [address], [facility] Oxygen saturation in Blood 95.1 % Normal 94.0-97.0 [facility] Comment on above: Performed By: #### 0 0121, 01395, 96377, 61098, 59299 #### [facility] [address] [place] [address], [place] PCO2 30 mmHg Low 35-45 [facility] Comment on above: Performed By: #### 0 0121, 23426, 44007, 73997, 38925 #### [facility] [address] [place] [address], [place] PEEP 8.0 CMH20 Normal [facility] Comment on above: Performed By: #### 0 0121, 40377, 08522, 13252, 21815 #### [facility] [address] [place] [address], [facility] pH (Bld) 7.49 [pH] High 7.35-7.45 [facility] Comment on above: Result Comment: KINJAL REYNOSO NOTE: Effective 12/02/18, reference ranges for Respiratory GEM analyzers running arterial blood have been updated to reflect the technical professional's published reference ranges. Performed By: #### 0 0121, 49353, 27299, 58737, 92268 #### [facility] [address] [place] [address], [facility] TIDAL VOLUME (VT) CC 700 cc Normal [facility] Comment on above: Performed By: #### 0 0121, 11297, 71218, 70667, 87646 #### [facility] [address] [place] [address], [facility] BASE EXCESS 0 mmol/L Normal -2-3 [facility] Comment on above: Performed By: #### 0 0121, 50857, 78625, 57505, 94953 #### [facility] [address] [place] [address], [facility] [employer] MV Normal [facility] Comment on above: Performed By: #### 0 0121, 34622, 27992, 04289, 51053 #### [facility] [address] [place] [address], [facility] FIO2 50 % Normal [facility] Comment on above: Performed By: #### 0 0121, 52385, 85249, 75644, 16953 #### [facility] [address] [place] [address], [facility] HCO3 (Bld) [Moles/Vol] 23 mmol/L Normal 21-28 [facility] Comment on above: Performed By: #### 0 0121, 96180, 31345, 08314, 35877 #### [facility] [address] [place] [address], [facility] IONIZED CALCIUM 1.14 mmol/L Normal 1.13-1.32 [facility] Comment on above: Performed By: #### 0 0121, 84554, 42323, 73223, 92861 #### [facility] [address] [place] [address], [facility] MIN VOLUME 13.3 Normal [facility] Comment on above: Performed By: #### 0 0121, 71024, 35335, 18283, 16871 #### [facility] [address] [place] [address], [facility] MODALITY AC Normal [facility] Comment on above: Performed By: #### 0 0121, 72160, 18097, 16522, 00605 #### [facility] [address] [place] [address], [facility] Oxygen (Bld) [Partial pressure] 71 mm[Hg] Low 83-108 [facility] Comment on above: Performed By: #### 0 0121, 28996, 54572, 98914, 79166 #### [facility] [address] [place] [address], [facility] Oxygen saturation in Blood 92.6 % Low 94.0-97.0 [facility] Comment on above: Performed By: #### 0 0121, 22689, 15430, 55180, 72975 #### [facility] [address] [place] [address], [facility] PCO2 31 mmHg Low 35-45 [facility] Comment on above: Performed By: #### 0 0121, 21845, 30112, 46607, 72467 #### [facility] [address] [place] [address], [facility] PEEP 8.0 CMH20 Normal [facility] Comment on above: Performed By: #### 0 0121, 94342, 19118, 01951, 86365 #### [facility] [address] [place] [address], [place] PF RATIO 142 mmHg Normal [facility] Comment on above: Performed By: #### 0 0121, 69796, 99894, 12049, 00152 #### [facility] [address] [place] [address], [place] pH (Bld) 7.47 [pH] High 7.35-7.45 [facility] Comment on above: Result Comment: KINJAL REYNOSO NOTE: Effective 12/02/18, reference ranges for Respiratory GEM analyzers running arterial blood have been updated to reflect the technical professional's published reference ranges. Performed By: #### 0 0121, 12824, 06697, 07806, 29046 #### [facility] [address] [place] [address], [place] TIDAL VOLUME (VT) CC 700 cc Normal [facility] Comment on above: Performed By: #### 0 0121, 20941, 09987, 51319, 57524 #### [facility] [address] [place] [address], [place] BASIC METABOLIC PANELon 06- Calcium [Mass/Vol] 8.6 mg/dL Normal 8.6-10.3 [facility] Comment on above: Order Comment: << On admission If not done in ED>> No: Do not add to previous draw Performed By: #### 0 0121, 83540, 82649, 81425, 79355 #### [facility] [address] [place] [address], [place] Chloride [Moles/Vol] 104 mmol/L Normal 98-107 [facility] Comment on above: Order Comment: << On admission If not done in ED>> No: Do not add to previous draw Performed By: #### 0 0121, 76900, 36598, 55279, 25890 #### [facility] [address] [place] [address], [place] CO2 [Moles/Vol] 26 mmol/L Normal 21-31 [facility] Comment on above: Order Comment: << On admission If not done in ED>> No: Do not add to previous draw Performed By: #### 0 0121, 83731, 38942, 51081, 44391 #### [facility] [address] [place] [address], [place] Creatinine [Mass/Vol] 1.48 mg/dL High 0.70-1.30 [facility] Comment on above: Order Comment: << On admission If not done in ED>> No: Do not add to previous draw Performed By: #### 0 0121, 91643, 73376, 66062, 23895 #### [facility] [address] [place] [address], [facility] GFR/1.73 sq M predicted among blacks MDRD (S/P/Bld) [Vol rate/Area] 60 ml/min/1.73sq m Abnormal >60 [facility] Comment on above: Order Comment: << On admission If not done in ED>> No: Do not add to previous draw Performed By: #### 0 0121, 52323, 68227, 01343, 31059 #### [facility] [address] [place] [address], [facility] GFR/1.73 sq M predicted among non-blacks MDRD (S/P/Bld) [Vol rate/Area] 50 ml/min/1.73sq m Abnormal >60 [facility] Comment on above: Order Comment: << On admission If not done in ED>> No: Do not add to previous draw Performed By: #### 0 0121, 74954, 48958, 81008, 46997 #### [facility] [address] [place] [address], [place] Glucose [Mass/Vol] 115 mg/dL High 70-100 [facility] Comment on above: Order Comment: << On admission If not done in ED>> No: Do not add to previous draw Performed By: #### 0 0121, 80783, 17481, 40037, 19444 #### [facility] [address] [place] [address], [place] Potassium [Moles/Vol] 3.4 mmol/L Low 3.5-5.1 [facility] Comment on above: Order Comment: << On admission If not done in ED>> No: Do not add to previous draw Performed By: #### 0 0121, 76340, 22142, 22012, 54381 #### [facility] [address] [place] [address], [place] Sodium [Moles/Vol] 138 mmol/L Normal 136-145 [facility] Comment on above: Order Comment: << On admission If not done in ED>> No: Do not add to previous draw Performed By: #### 0 0121, 51126, 38017, 92944, 37546 #### [facility] [address] [place] [address], [place] Urea nitrogen [Mass/Vol] 23 mg/dL Normal 7-25 [facility] Comment on above: Order Comment: << On admission If not done in ED>> No: Do not add to previous draw Performed By: #### 0 0121, 04067, 04260, 16543, 71692 #### [facility] [address] [place] [address], [place] Calcium [Mass/Vol] 8.1 mg/dL Low 8.6-10.3 [facility] Comment on above: Order Comment: << On admission If not done in ED>> No: Do not add to previous draw Performed By: #### 0 0121, 58066, 24550, 46289, 12668 #### [facility] [address] [place] [address], [place] Chloride [Moles/Vol] 105 mmol/L Normal 98-107 [facility] Comment on above: Order Comment: << On admission If not done in ED>> No: Do not add to previous draw Performed By: #### 0 0121, 66459, 43427, 57215, 83491 #### [facility] [address] [place] [address], [place] CO2 [Moles/Vol] 26 mmol/L Normal 21-31 [facility] Comment on above: Order Comment: << On admission If not done in ED>> No: Do not add to previous draw Performed By: #### 0 0121, 22029, 38671, 32081, 24289 #### [facility] [address] [place] [address], [facility] Creatinine [Mass/Vol] 1.37 mg/dL High 0.70-1.30 [facility] Comment on above: Order Comment: << On admission If not done in ED>> No: Do not add to previous draw Performed By: #### 0 0121, 91839, 54566, 17438, 29981 #### [facility] [address] [place] [address], [place] GFR/1.73 sq M predicted among blacks MDRD (S/P/Bld) [Vol rate/Area] mL/min/{1.73_m2} Normal >60 [facility] Comment on above: Order Comment: << On admission If not done in ED>> No: Do not add to previous draw Performed By: #### 0 0121, 81668, 98542, 72420, 99311 #### [facility] [address] [place] [address], [place] GFR/1.73 sq M predicted among non-blacks MDRD (S/P/Bld) [Vol rate/Area] 54 ml/min/1.73sq m Abnormal >60 [facility] Comment on above: Order Comment: << On admission If not done in ED>> No: Do not add to previous draw Performed By: #### 0 0121, 71430, 12479, 25145, 63750 #### [facility] [address] [place] [address], [place] Glucose [Mass/Vol] 113 mg/dL High 70-100 [facility] Comment on above: Order Comment: << On admission If not done in ED>> No: Do not add to previous draw Performed By: #### 0 0121, 31897, 02428, 52861, 21141 #### [facility] [address] [place] [address], [place] Potassium [Moles/Vol] 3.3 mmol/L Low 3.5-5.1 [facility] Comment on above: Order Comment: << On admission If not done in ED>> No: Do not add to previous draw Performed By: #### 0 0121, 77302, 73912, 67265, 00044 #### [facility] [address] [place] [address], [facility] Sodium [Moles/Vol] 138 mmol/L Normal 136-145 [facility] Comment on above: Order Comment: << On admission If not done in ED>> No: Do not add to previous draw Performed By: #### 0 0121, 76197, 32779, 38206, 60087 #### [facility] [address] [place] [address], [facility] Urea nitrogen [Mass/Vol] 19 mg/dL Normal 7-25 [facility] Comment on above: Order Comment: << On admission If not done in ED>> No: Do not add to previous draw Performed By: #### 0 0121, 55006, 43599, 85000, 91434 #### [facility] [address] [place] [address], [place] Calcium [Mass/Vol] 7.4 mg/dL Low 8.6-10.3 [facility] Comment on above: Order Comment: << On admission If not done in ED>> No: Do not add to previous draw Performed By: #### 0 0121, 86026, 49920, 52217, 62472 #### [facility] [address] [place] [address], [facility] Chloride [Moles/Vol] 109 mmol/L High 98-107 [facility] Comment on above: Order Comment: << On admission If not done in ED>> No: Do not add to previous draw Performed By: #### 0 0121, 92674, 95598, 82343, 94091 #### [facility] [address] [place] [address], [facility] CO2 [Moles/Vol] 21 mmol/L Normal 21-31 [facility] Comment on above: Order Comment: << On admission If not done in ED>> No: Do not add to previous draw Performed By: #### 0 0121, 96202, 97597, 31329, 96394 #### [facility] [address] [place] [address], [facility] Creatinine [Mass/Vol] 1.22 mg/dL Normal 0.70-1.30 [facility] [facility] Comment on above: Order Comment: << On admission If not done in ED>> No: Do not add to previous draw Performed By: #### 0 0121, 20562, 47627, 24805, 15007 #### [facility] [address] [place] [address], [facility] GFR/1.73 sq M predicted among blacks MDRD (S/P/Bld) [Vol rate/Area] mL/min/{1.73_m2} Normal >60 [facility] Comment on above: Order Comment: << On admission If not done in ED>> No: Do not add to previous draw Performed By: #### 0 0121, 54436, 57283, 71210, 88994 #### [facility] [address] [place] [address], [facility] GFR/1.73 sq M predicted among non-blacks MDRD (S/P/Bld) [Vol rate/Area] mL/min/{1.73_m2} Normal >60 [facility] Comment on above: Order Comment: << On admission If not done in ED>> No: Do not add to previous draw Performed By: #### 0 0121, 36612, 19867, 36047, 31682 #### [facility] [address] [place] [address], [place] Glucose [Mass/Vol] 129 mg/dL High 70-100 [facility] Comment on above: Order Comment: << On admission If not done in ED>> No: Do not add to previous draw Performed By: #### 0 0121, 60657, 80507, 46781, 49908 #### [facility] [address] [place] [address], [place] Potassium [Moles/Vol] 3.1 mmol/L Low 3.5-5.1 [facility] Comment on above: Order Comment: << On admission If not done in ED>> No: Do not add to previous draw Performed By: #### 0 0121, 47019, 83164, 93362, 28288 #### [facility] [address] [place] [address], [place] Sodium [Moles/Vol] 139 mmol/L Normal 136-145 [facility] Comment on above: Order Comment: << On admission If not done in ED>> No: Do not add to previous draw Performed By: #### 0 0121, 84101, 40336, 67564, 38059 #### [facility] [address] [place] [address], [place] Urea nitrogen [Mass/Vol] 17 mg/dL Normal 7-25 [facility] Comment on above: Order Comment: << On admission If not done in ED>> No: Do not add to previous draw Performed By: #### 0 0121, 57684, 61583, 66237, 63532 #### [facility] [address] CBC COMPLETE BLOOD COUNTon 0 - Erythrocyte distribution width (RBC) [Ratio] 13.5 % Normal 11.5-15.0 [facility] Comment on above: Order Comment: << On admission If not done in ED>> No: Do not add to previous draw Performed By: #### 0 0121, 33928, 21592, 08036, 06664 #### [facility] [address] Hematocrit (Bld) [Volume fraction] 33.7 % Low 39.0-50.0 [facility] Comment on above: Order Comment: << On admission If not done in ED>> No: Do not add to previous draw Performed By: #### 0 0121, 58964, 34403, 57902, 70148 #### [facility] [address] Hemoglobin (Bld) [Mass/Vol] 10.9 g/dL Low 13.0-17.0 [facility] Comment on above: Order Comment: << On admission If not done in ED>> No: Do not add to previous draw Performed By: #### 0 0121, 16718, 08332, 48185, 00815 #### [facility] [address] MCH (RBC) [Entitic mass] 29.3 pg Normal 27.0-33.0 [facility] Comment on above: Order Comment: << On admission If not done in ED>> No: Do not add to previous draw Performed By: #### 0 0121, 08032, 41308, 03115, 22359 #### [facility] [address] MCHC (RBC) [Mass/Vol] 32.3 g/dL Normal 32.0-35.0 [facility] Comment on above: Order Comment: << On admission If not done in ED>> No: Do not add to previous draw Performed By: #### 0 0121, 43741, 21005, 69790, 85886 #### [facility] [address] [place] [address], [facility] MCV (RBC) [Entitic vol] 90.6 fL Normal 82.0-98.0 [facility] Comment on above: Order Comment: << On admission If not done in ED>> No: Do not add to previous draw Performed By: #### 0 0121, 39169, 84225, 48962, 75746 #### [facility] [address] [place] [address], [facility] Nucleated RBC/100 WBC (Bld) [Ratio] 0 % Normal 0-0 [facility] Comment on above: Order Comment: << On admission If not done in ED>> No: Do not add to previous draw Performed By: #### 0 0121, 06647, 02818, 32103, 31341 #### [facility] [address] [facility] [place] [address], [place] PLAT CNT 100 10*3/uL Low 150-400 [facility] Comment on above: Order Comment: << On admission If not done in ED>> No: Do not add to previous draw Performed By: #### 0 0121, 05788, 91923, 71441, 55250 #### [facility] [address] [place] [address], [facility] RBC (Bld) [#/Vol] 3.72 10*6/uL Low 4.20-5.70 [facility] Comment on above: Order Comment: << On admission If not done in ED>> No: Do not add to previous draw Performed By: #### 0 0121, 49245, 35671, 44680, 97133 #### [facility] [address] [place] [address], [place] WBC (Bld) [#/Vol] 17.24 10*3/uL High 4.00-10.60 [facility] Comment on above: Order Comment: << On admission If not done in ED>> No: Do not add to previous draw Performed By: #### 0 0121, 75693, 93660, 83942, 26013 #### [facility] [address] [place] [address], [facility] Erythrocyte distribution width (RBC) [Ratio] 13.5 % Normal 11.5-15.0 [facility] Comment on above: Order Comment: << On admission If not done in ED>> No: Do not add to previous draw Performed By: #### 0 0121, 93066, 75219, 59686, 97417 #### [facility] [address] [place] [address], [facility] Hematocrit (Bld) [Volume fraction] 35.2 % Low 39.0-50.0 [facility] Comment on above: Order Comment: << On admission If not done in ED>> No: Do not add to previous draw Performed By: #### 0 0121, 70444, 23943, 30444, 78267 #### [facility] [address] [place] [address], [facility] Hemoglobin (Bld) [Mass/Vol] 11.5 g/dL Low 13.0-17.0 [facility] Comment on above: Order Comment: << On admission If not done in ED>> No: Do not add to previous draw Performed By: #### 0 0121, 10409, 65972, 99196, 99750 #### [facility] [address] [place] [address], [place] IMM PLATELET FRAC 4.3 % Normal 0.8-6.[address] [facility] Comment on above: Order Comment: << On admission If not done in ED>> No: Do not add to previous draw Performed By: #### 0 0121, 75614, 03428, 89404, 79044 #### [facility] [address] [place], [address] MCH (RBC) [Entitic mass] 29.4 pg Normal 27.0-33.0 [facility] Comment on above: Order Comment: << On admission If not done in ED>> No: Do not add to previous draw Performed By: #### 0 0121, 78254, 37753, 03741, 64355 #### [facility] [address] MCHC (RBC) [Mass/Vol] 32.7 g/dL Normal 32.0-35.0 [facility] Comment on above: Order Comment: << On admission If not done in ED>> No: Do not add to previous draw Performed By: #### 0 0121, 16333, 58394, 53650, 19806 #### [facility] [address] MCV (RBC) [Entitic vol] 90.0 fL Normal 82.0-98.0 [facility] Comment on above: Order Comment: << On admission If not done in ED>> No: Do not add to previous draw Performed By: #### 0 0121, 50263, 75136, 16768, 37743 #### [facility] [address] [facility] [address] Nucleated RBC/100 WBC (Bld) [Ratio] 0 % Normal 0-0 [facility] Comment on above: Order Comment: << On admission If not done in ED>> No: Do not add to previous draw Performed By: #### 0 0121, 29951, 19284, 70351, 30493 #### [facility] [address] PLAT CNT 99 10*3/uL Low 150-400 [facility] Comment on above: Order Comment: << On admission If not done in ED>> No: Do not add to previous draw Performed By: #### 0 0121, 66020, 41744, 51359, 10814 #### [facility] [address] [place] [address], [facility] RBC (Bld) [#/Vol] 3.91 10*6/uL Low 4.20-5.70 [facility] Comment on above: Order Comment: << On admission If not done in ED>> No: Do not add to previous draw Performed By: #### 0 0121, 08558, 94290, 88732, 31497 #### [facility] [address] [facility] [place] [address], [facility] WBC (Bld) [#/Vol] 19.55 10*3/uL High 4.00-10.60 [facility] Comment on above: Order Comment: << On admission If not done in ED>> No: Do not add to previous draw Performed By: #### 0 0121, 29658, 42824, 76343, 08687 #### [facility] [address] Erythrocyte distribution width (RBC) [Ratio] 13.5 % Normal 11.5-15.0 [facility] Comment on above: Order Comment: << On admission If not done in ED>> No: Do not add to previous draw Performed By: #### 0 0121, 38409, 73723, 96447, 62649 #### [facility] [address] Hematocrit (Bld) [Volume fraction] 38.1 % Low 39.0-50.0 [facility] Comment on above: Order Comment: << On admission If not done in ED>> No: Do not add to previous draw Performed By: #### 0 0121, 05639, 93836, 43524, 21320 #### [facility] [address] [place] [address], [facility] Hemoglobin (Bld) [Mass/Vol] 12.2 g/dL Low 13.0-17.0 [facility] Comment on above: Order Comment: << On admission If not done in ED>> No: Do not add to previous draw Performed By: #### 0 0121, 52330, 31263, 40316, 27525 #### [facility] [address] [facility] [place] [address], [facility] IMM PLATELET FRAC 3.8 % Normal 0.8-6.[address] [facility] Comment on above: Order Comment: << On admission If not done in ED>> No: Do not add to previous draw Performed By: #### 0 0121, 11327, 82399, 38842, 47367 #### [facility] [address] [place] [address], [facility] MCH (RBC) [Entitic mass] 29.0 pg Normal 27.0-33.0 [facility] Comment on above: Order Comment: << On admission If not done in ED>> No: Do not add to previous draw Performed By: #### 0 0121, 92073, 57743, 76157, 34135 #### [facility] [address] [facility] [place] [address], [facility] MCHC (RBC) [Mass/Vol] 32.0 g/dL Normal 32.0-35.0 [facility] Comment on above: Order Comment: << On admission If not done in ED>> No: Do not add to previous draw Performed By: #### 0 0121, 84920, 24533, 02083, 41985 #### [facility] [address] [facility] [place] [id number], [facility] MCV (RBC) [Entitic vol] 90.7 fL Normal 82.0-98.0 [facility] Comment on above: Order Comment: << On admission If not done in ED>> No: Do not add to previous draw Performed By: #### 0 0121, 32567, 25124, 04981, 38382 #### [facility] [address] [facility] [place] [address], [facility] Nucleated RBC/100 WBC (Bld) [Ratio] 0 % Normal 0-0 [facility] Comment on above: Order Comment: << On admission If not done in ED>> No: Do not add to previous draw Performed By: #### 0 0121, 79960, 97826, 41921, 51325 #### [facility] [address] [place] [address], [facility] PLAT CNT 112 10*3/uL Low 150-400 [facility] Comment on above: Order Comment: << On admission If not done in ED>> No: Do not add to previous draw Performed By: #### 0 0121, 01004, 08500, 16888, 93606 #### [facility] [address] [place] [address], [facility] RBC (Bld) [#/Vol] 4.20 10*6/uL Normal 4.20-5.70 [facility] Comment on above: Order Comment: << On admission If not done in ED>> No: Do not add to previous draw Performed By: #### 0 0121, 99835, 13203, 53110, 19227 #### [facility] [address] [place] [address], [facility] WBC (Bld) [#/Vol] 21.05 10*3/uL High 4.00-10.60 [facility] Comment on above: Order Comment: << On admission If not done in ED>> No: Do not add to previous draw Performed By: #### 0 0121, 83136, 12524, 44746, 01503 #### [facility] [address] [place] [address], [facility] COOXIMETRYon 03-21-2019 COHB 1 % Normal [facility] Comment on above: Performed By: #### 0 0121, 90438, 92020, 54839, 52182 #### [facility] [address] [place] [address], [facility] METHB 1 % Normal [facility] Comment on above: Performed By: #### 0 0121, 18604, 83010, 98676, 14725 #### [facility] [address] [place] [address], [place] Oxygen saturation in Blood 59.8 % Low 65.0-75.0 [facility] Comment on above: Performed By: #### 0 0121, 61863, 57734, 67290, 44560 #### [facility] [address] [place] [address], [place] THB 10.9 g/dL Normal [facility] Comment on above: Performed By: #### 0 0121, 75150, 49266, 47156, 68932 #### [facility] [address] [place] [address], [place] COHB 2 % Normal [facility] Comment on above: Performed By: #### 0 0121, 73297, 21019, 75468, 85636 #### [facility] [address] [place] [address], [place] METHB 1 % Normal [facility] Comment on above: Performed By: #### 0 0121, 54755, 52238, 09818, 80869 #### [facility] [address] [place] [address], [place] Oxygen saturation in Blood 70.2 % Normal 65.0-75.0 [facility] Comment on above: Performed By: #### 0 0121, 88834, 45539, 71970, 68659 #### [facility] [address] [place] [address], [place] THB 11.5 g/dL Normal [facility] Comment on above: Performed By: #### 0 0121, 37975, 35620, 34288, 15352 #### [facility] [address] [place] [address], [place] MAGNESIUM BLOODon 03-21-2019 Magnesium [Mass/Vol] 2.1 mg/dL Normal 1.9-2.7 [facility] Comment on above: Order Comment: << On admission If not done in ED>> No: Do not add to previous draw Performed By: #### 0 0121, 20795, 24202, 44324, 36058 #### [facility] [address] [place] [address], [place] Magnesium [Mass/Vol] 2.1 mg/dL Normal 1.9-2.7 [facility] Comment on above: Order Comment: << On admission If not done in ED>> No: Do not add to previous draw Performed By: #### 0 0121, 72949, 48946, 39370, 24678 #### [facility] [address] [place] [address], [place] Magnesium [Mass/Vol] 2.2 mg/dL Normal 1.9-2.7 [facility] Comment on above: Order Comment: << On admission If not done in ED>> No: Do not add to previous draw Performed By: #### 0 0121, 49204, 47550, 62105, 44114 #### [facility] [address] [place] [address], [place] POC GLUCOSE LABon 03-21-2019 Glucose [Mass/Vol] 107 mg/dL High 70-100 [facility] Comment on above: Performed By: #### 0 0121, 79293, 52376, 72308, 36941 #### [facility] [address] [place] [address], [place] Glucose [Mass/Vol] 103 mg/dL High 70-100 [facility] Comment on above: Performed By: #### 0 0121, 13713, 30143, 99287, 00195 #### [facility] [address] [place] [address], [place] Glucose [Mass/Vol] 112 mg/dL High 70-100 [facility] Comment on above: Performed By: #### 0 0121, 89210, 02658, 48318, 32745 #### [facility] [address] [place] [address], [place] Glucose [Mass/Vol] 127 mg/dL High 70-100 [facility] Comment on above: Performed By: #### 0 0121, 05888, 55087, 54568, 48535 #### [facility] [address] [place] [address], [place] Glucose [Mass/Vol] 95 mg/dL Normal 70-100 [facility] Comment on above: Performed By: #### 0 0121, 10985, 65598, 58670, 14038 #### [facility] [address] [place] [address], [place] Glucose [Mass/Vol] 104 mg/dL High 70-100 [facility] Comment on above: Performed By: #### 0 0121, 62206, 89045, 60973, 31521 #### [facility] [address] [place] [address], [place] Glucose [Mass/Vol] 98 mg/dL Normal 70-100 [facility] Comment on above: Performed By: #### 0 0121, 49554, 26535, 38121, 06210 #### [facility] [address] [place] [address], [place] Glucose [Mass/Vol] 113 mg/dL High 70-100 [facility] Comment on above: Performed By: #### 0 0121, 73599, 22954, 67111, 56604 #### [facility] [address] [place] [address], [place] Glucose [Mass/Vol] 130 mg/dL High 70-100 [facility] Comment on above: Performed By: #### 0 0121, 44140, 97570, 95571, 45314 #### [facility] [address] [place] [address], [place] Glucose [Mass/Vol] 130 mg/dL High 70-100 [facility] Comment on above: Performed By: #### 0 0121, 34458, 64073, 82912, 65421 #### [facility] [address] [place] [address], [place] Glucose [Mass/Vol] 129 mg/dL High 70-100 [facility] Comment on above: Performed By: #### 0 0121, 98735, 08235, 35629, 11399 #### [facility] [address] [place] [address], [place] Glucose [Mass/Vol] 108 mg/dL High 70-100 [facility] Comment on above: Performed By: #### 0 0121, 46863, 37213, 51803, 04647 #### [facility] [address] [place] [address], [place] Glucose [Mass/Vol] 101 mg/dL High 70-100 [facility] Comment on above: Performed By: #### 0 0121, 17458, 81477, 45528, 00831 #### [facility] [address] [facility] [place] [address], [facility] PORTABLE CHEST 1 VIEW 03-01 PORTABLE CHEST 1 VIEW [facility] Department of Radiology [address] [place] [id number] ======== Patient Name: TRACIE CRAIN : 1965 Sex: M Age: Race: NA Pt. Location: [id number] Patient Status: I Ordered Date: 03/21/2019 5:00:00 [...] of field of view, in satisfactory position. Ben Wheeler-Sher catheter is again seen with tip projecting [...] findings. Electronically signed by:Yenni Osuna. Transcribed by: [email or web address], User Resident: CYNTHIA FINLEY Electronically Signed by: YENNI OSUNA @ 03/22/2019 01:07 PM I personally read this/these film(s) with this resident Normal [facility] Comment on above: Order Comment: << On admission If not done in ED>> No: Do not add to previous draw ARTERIAL BLOOD GAS WITH ICAo n 03-20-2019 BASE EXCESS -4 mmol/L Low -2-3 [facility] Comment on above: Performed By: #### 0 0121, 02543, 53354, 74260, 48507 #### [facility] [address] [place] [address], [facility] DELIVERY SYSTEMS VENTILATOR Normal The [facility] Comment on above: Performed By: #### 0 0121, 44508, 87683, 69885, 44885 #### [facility] [address] [place] [address], [facility] FIO2 50 % Normal [facility] Comment on above: Performed By: #### 0 0121, 24906, 52665, 74748, 60335 #### [facility] [address] [place] [address], [facility] HCO3 (Bld) [Moles/Vol] 19 mmol/L Low 21-28 [facility] Comment on above: Performed By: #### 0 0121, 38424, 23162, 71291, 92817 #### [facility] [address] [place] [address], [place] IONIZED CALCIUM 1.06 mmol/L Low 1.13-1.32 The [facility] Comment on above: Performed By: #### 0 0121, 95816, 34332, 41245, 34325 #### [facility] [address] [place] [address], [place] MIN VOLUME 14.2 Normal [facility] Comment on above: Performed By: #### 0 0121, 01731, 62739, 82790, 06705 #### [facility] [address] [place] [address], [facility] MODALITY AC-ASSIST CONTROL Normal The [facility] Comment on above: Performed By: #### 0 0121, 04995, 70011, 46903, 80048 #### [facility] [address] [place] [address], [place] Oxygen (Bld) [Partial pressure] 82 mm[Hg] Low 83-108 [facility] Comment on above: Performed By: #### 0 0121, 72213, 46625, 79528, 82292 #### [facility] [address] [place] [address], [place] Oxygen saturation in Blood 94.4 % Normal 94.0-97.0 [facility] Comment on above: Performed By: #### 0 0121, 67954, 94447, 89526, 52437 #### [facility] [address] [place] [address], [place] PCO2 27 mmHg Low 35-45 [facility] Comment on above: Performed By: #### 0 0121, 29954, 55651, 84424, 58250 #### [facility] [address] [place] [address], [place] PEEP 8.0 CMH20 Normal [facility] Comment on above: Performed By: #### 0 0121, 06474, 49831, 94988, 54798 #### [facility] [address] [place] [address], [place] pH (Bld) 7.45 [pH] Normal 7.35-7.45 [facility] Comment on above: Result Comment: KINJAL REYNOSO NOTE: Effective 12/02/18, reference ranges for Respiratory GEM analyzers running arterial blood have been updated to reflect the technical professional's published reference ranges. Performed By: #### 0 0121, 34794, 90044, 61983, 14659 #### [facility] [address] [place] [address], [place] TIDAL VOLUME (VT) CC 700 cc Normal [facility] Comment on above: Performed By: #### 0 0121, 04881, 17945, 29191, 05528 #### [facility] [address] [place] [address], [facility] BASE EXCESS -2 mmol/L Normal -2-3 [facility] Comment on above: Performed By: #### 0 0121, 85368, 31864, 98278, 55726 #### [facility] [address] [place] [address], [facility] DELIVERY SYSTEMS MV Normal [facility] Comment on above: Performed By: #### 0 0121, 44383, 53794, 72804, 02380 #### [facility] [address] [place] [address], [facility] FIO2 100 % Normal [facility] Comment on above: Performed By: #### 0 0121, 15774, 55310, 42136, 16516 #### [facility] [address] [place] [address], [facility] HCO3 (Bld) [Moles/Vol] 22 mmol/L Normal 21-28 [facility] Comment on above: Performed By: #### 0 0121, 94606, 61066, 02047, 47248 #### [facility] [address] [place] [address], [facility] IONIZED CALCIUM 1.18 mmol/L Normal 1.13-1.32 The [facility] Comment on above: Performed By: #### 0 0121, 85169, 91842, 61611, 07832 #### [facility] [address] [place] [address], [facility] MIN VOLUME 13.0 Normal [facility] Comment on above: Performed By: #### 0 0121, 05381, 04790, 46286, 26205 #### [facility] [address] [place] [address], [place] MODALITY AC Normal [facility] Comment on above: Performed By: #### 0 0121, 53875, 97132, 04603, 38695 #### [facility] [address] [place] [address], [place] Oxygen (Bld) [Partial pressure] 109 mm[Hg] Critically high 83-108 [facility] Comment on above: Performed By: #### 0 0121, 20647, 59419, 83862, 98022 #### [facility] [address] [place] [address], [place] Oxygen saturation in Blood 95.6 % Normal 94.0-97.0 [facility] Comment on above: Performed By: #### 0 0121, 78532, 66301, 15713, 14677 #### [facility] [address] [place] [address], [facility] PCO2 33 mmHg Low 35-45 [facility] Comment on above: Performed By: #### 0 0121, 11774, 51870, 85894, 64443 #### [facility] [address] [place] [address], [place] PEEP 10.0 CMH20 Normal [facility] [facility] Comment [facility]: Performed By: #### 0 0121, 94856, 29539, 43343, 64996 #### [facility] [address] [place] [address], [place] PF RATIO 109 mmHg Normal [facility] Comment on above: Performed By: #### 0 0121, 10079, 85507, 91608, 22377 #### [facility] [address] [place] [address], [place] pH (Bld) 7.43 [pH] Normal 7.35-7.45 [facility] Comment on above: Result Comment: KINJAL REYNOSO NOTE: Effective 12/02/18, reference ranges for Respiratory GEM analyzers running arterial blood have been updated to reflect the technical professional's published reference ranges. Performed By: #### 0 0121, 58841, 18654, 28456, 29250 #### [facility] [address] TIDAL VOLUME (VT) CC 700 cc Normal [facility] Comment on above: Performed By: #### 0 0121, 51211, 71404, 36339, 54196 #### [facility] [address] BASE EXCESS -4 mmol/L Low -2-3 [facility] Comment on above: Performed By: #### 0 0121, 54198, 29078, 28489, 83026 #### [facility] [address] DELIVERY SYSTEMS VENTILATOR Normal [facility] Comment on above: Performed By: #### 0 0121, 07878, 35357, 27425, 80886 #### [facility] [address] [place] [address], [facility] FIO2 100 % Normal [facility] Comment on above: Performed By: #### 0 0121, 55183, 11252, 06750, 48756 #### [facility] [address] HCO3 (Bld) [Moles/Vol] 20 mmol/L Low 21-28 [facility] Comment on above: Performed By: #### 0 0121, 15319, 47357, 15643, 42310 #### [facility] [address] IONIZED CALCIUM 1.23 mmol/L Normal 1.13-1.32 [facility] Comment on above: Performed By: #### 0 0121, 40994, 72930, 64035, 10784 #### [facility] [address] [place] [address], [facility] MIN VOLUME 15.1 Normal [facility] Comment on above: Performed By: #### 0 0121, 82144, 94520, 06452, 72074 #### [facility] [address] [place] [address], [place] MODALITY AC-ASSIST CONTROL Normal [facility] Comment on above: Performed By: #### 0 0121, 42729, 78073, 89836, 36800 #### [facility] [address] [place] [address], [place] Oxygen (Bld) [Partial pressure] 90 mm[Hg] Normal 83-108 [facility] Comment on above: Performed By: #### 0 0121, 51072, 49920, 82639, 57775 #### [facility] [address] [place] [address], [place] Oxygen saturation in Blood 95.1 % Normal 94.0-97.0 [facility] Comment on above: Performed By: #### 0 0121, 50824, 01573, 96762, 06048 #### [facility] [address] [place] [address], [place] PCO2 32 mmHg Low 35-45 [facility] Comment on above: Performed By: #### 0 0121, 65114, 66088, 92996, 39179 #### [facility] [address] [place] [address], [place] PEEP 10.0 CMH20 Normal [facility] Comment on above: Performed By: #### 0 0121, 34009, 61905, 31731, 43303 #### [facility] [address] [place] [address], [place] PF RATIO 900 mmHg Normal [facility] Comment on above: Performed By: #### 0 0121, 07874, 66190, 37587, 70983 #### [facility] [address] [place] [address], [place] pH (Bld) 7.40 [pH] Normal 7.35-7.45 [facility] Comment on above: Result Comment: PLEA SE NOTE: Effective 12/02/18, reference ranges for Respiratory GEM analyzers running arterial blood have been updated to reflect the technical professional's published reference ranges. Performed By: #### 0 0121, 82863, 79247, 91130, 12474 #### [facility] [address] [place] [address], [place] TIDAL VOLUME (VT) CC 700 cc Normal [facility] Comment on above: Performed By: #### 0 0121, 41904, 50492, 67440, 01585 #### [facility] [address] [place] [address], [place] BASIC METABOLIC PANELon 06-2 Calcium [Mass/Vol] 8.1 mg/dL Low 8.6-10.3 [facility] Comment on above: Order Comment: << On admission If not done in ED>> No: Do not add to previous draw Performed By: #### 0 0121, 31689, 99398, 69603, 76292 #### [facility] [address] [place] [address], [place] Chloride [Moles/Vol] 112 mmol/L High 98-107 [facility] Comment on above: Order Comment: << On admission If not done in ED>> No: Do not add to previous draw Performed By: #### 0 0121, 16818, 93502, 11346, 31578 #### [facility] [address] [place] [address], [place] CO2 [Moles/Vol] 24 mmol/L Normal 21-31 [facility] Comment on above: Order Comment: << On admission If not done in ED>> No: Do not add to previous draw Performed By: #### 0 0121, 35747, 77838, 14629, 81591 #### [facility] [address] [place] [address], [place] Creatinine [Mass/Vol] 0.97 mg/dL Normal 0.70-1.30 [facility] Comment on above: Order Comment: << On admission If not done in ED>> No: Do not add to previous draw Performed By: #### 0 0121, 08993, 46572, 70391, 23634 #### [facility] [address] [place] [address], [facility] GFR/1.73 sq M predicted among blacks MDRD (S/P/Bld) [Vol rate/Area] mL/min/{1.73_m2} Normal >60 [facility] Comment on above: Order Comment: << On admission If not done in ED>> No: Do not add to previous draw Performed By: #### 0 0121, 23731, 28566, 94564, 65124 #### [facility] [address] [place] [address], [facility] GFR/1.73 sq M predicted among non-blacks MDRD (S/P/Bld) [Vol rate/Area] mL/min/{1.73_m2} Normal >60 [facility] Comment on above: Order Comment: << On admission If not done in ED>> No: Do not add to previous draw Performed By: #### 0 0121, 25959, 77877, 14154, 42289 #### [facility] [address] [place] [address], [facility] Glucose [Mass/Vol] 134 mg/dL High 70-100 [facility] Comment on above: Order Comment: << On admission If not done in ED>> No: Do not add to previous draw Performed By: #### 0 0121, 60889, 90035, 37332, 51417 #### [facility] [address] [place] [address], [place] Potassium [Moles/Vol] 3.9 mmol/L Normal 3.5-5.1 [facility] Comment on above: Order Comment: << On admission If not done in ED>> No: Do not add to previous draw Performed By: #### 0 0121, 00993, 35751, 15157, 60400 #### [facility] [address] [place] [address], [place] Sodium [Moles/Vol] 142 mmol/L Normal 136-145 [facility] Comment on above: Order Comment: << On admission If not done in ED>> No: Do not add to previous draw Performed By: #### 0 0121, 60770, 47491, 25261, 98811 #### [facility] [address] [place] [address], [place] Urea nitrogen [Mass/Vol] 16 mg/dL Normal 7-25 [facility] Comment on above: Order Comment: << On admission If not done in ED>> No: Do not add to previous draw Performed By: #### 0 0121, 19971, 33053, 78790, 87965 #### [facility] [address] [place] [address], [place] Chloride [Moles/Vol] 113 mmol/L High 98-107 [facility] Comment on above: Order Comment: << On admission If not done in ED>> No: Do not add to previous draw Performed By: #### 0 0121, 29156, 35630, 91468, 83613 #### [facility] [address] [place] [address], [place] CO2 [Moles/Vol] 23 mmol/L Normal 21-31 [facility] Comment on above: Order Comment: << On admission If not done in ED>> No: Do not add to previous draw Performed By: #### 0 0121, 04085, 75122, 20939, 28092 #### [facility] [address] [place] [address], [place] Creatinine [Mass/Vol] 1.11 mg/dL Normal 0.70-1.30 [facility] Comment on above: Order Comment: << On admission If not done in ED>> No: Do not add to previous draw Performed By: #### 0 0121, 95531, 13282, 29101, 25006 #### [facility] [address] [place] [address], [place] Glucose [Mass/Vol] 157 mg/dL High 70-100 [facility] Comment on above: Order Comment: << On admission If not done in ED>> No: Do not add to previous draw Performed By: #### 0 0121, 75756, 27242, 17588, 17043 #### [facility] [address] [place] [address], [place] Potassium [Moles/Vol] 4.0 mmol/L Normal 3.5-5.1 [facility] Comment on above: Order Comment: << On admission If not done in ED>> No: Do not add to previous draw Performed By: #### 0 0121, 43449, 06953, 16100, 35749 #### [facility] [address] [place] [address], [place] Sodium [Moles/Vol] 143 mmol/L Normal 136-145 [facility] Comment on above: Order Comment: << On admission If not done in ED>> No: Do not add to previous draw Performed By: #### 0 0121, 00277, 23676, 32042, 11369 #### [facility] [address] [place] [address], [place] Urea nitrogen [Mass/Vol] 17 mg/dL Normal 7-25 [facility] Comment on above: Order Comment: << On admission If not done in ED>> No: Do not add to previous draw Performed By: #### 0 0121, 45897, 00748, 52740, 48523 #### [facility] [address] [place] [address], [place] Calcium [Mass/Vol] 8.7 mg/dL Normal 8.6-10.3 [facility] Comment on above: Order Comment: << On admission If not done in ED>> No: Do not add to previous draw Performed By: #### 0 0121, 20819, 98960, 06124, 43763 #### [facility] [address] [place] [address], [place] CO2 [Moles/Vol] 22 mmol/L Normal 21-31 [facility] Comment on above: Order Comment: << On admission If not done in ED>> No: Do not add to previous draw Performed By: #### 0 0121, 40505, 39862, 23803, 84268 #### [facility] [address] [place] [address], [place] Creatinine [Mass/Vol] 1.00 mg/dL Normal 0.70-1.30 [facility] Comment on above: Order Comment: << On admission If not done in ED>> No: Do not add to previous draw Performed By: #### 0 0121, 67258, 23520, 12145, 57886 #### [facility] [address] [place] [address], [place] Glucose [Mass/Vol] 126 mg/dL High 70-100 [facility] Comment on above: Order Comment: << On admission If not done in ED>> No: Do not add to previous draw Performed By: #### 0 0121, 43018, 67911, 17662, 91361 #### [facility] [address] [place] [address], [place] Potassium [Moles/Vol] 4.1 mmol/L Normal 3.5-5.1 [facility] Comment on above: Order Comment: << On admission If not done in ED>> No: Do not add to previous draw Performed By: #### 0 0121, 98435, 24283, 95684, 77412 #### [facility] [address] [place] [address], [place] CBC COMPLETE BLOOD COUNTon 0 - Erythrocyte distribution width (RBC) [Ratio] 13.2 % Normal 11.5-15.0 [facility] Comment on above: Order Comment: << On admission If not done in ED>> No: Do not add to previous draw Performed By: #### 0 0121, 40102, 15004, 25563, 14633 #### [facility] [address] [place] [address], [facility] Hematocrit (Bld) [Volume fraction] 39.8 % Normal 39.0-50.0 [facility] Comment on above: Order Comment: << On admission If not done in ED>> No: Do not add to previous draw Performed By: #### 0 0121, 13793, 34098, 92972, 45522 #### [facility] [address] [place] [address], [facility] Hemoglobin (Bld) [Mass/Vol] 12.8 g/dL Low 13.0-17.0 [facility] Comment on above: Order Comment: << On admission If not done in ED>> No: Do not add to previous draw Performed By: #### 0 0121, 65677, 95935, 23753, 99651 #### [facility] [address] [place] [address], [facility] MCH (RBC) [Entitic mass] 28.8 pg Normal 27.0-33.0 [facility] Comment on above: Order Comment: << On admission If not done in ED>> No: Do not add to previous draw Performed By: #### 0 0121, 39246, 94177, 16510, 25786 #### [facility] [address] [place] [address], [facility] MCHC (RBC) [Mass/Vol] 32.2 g/dL Normal 32.0-35.0 [facility] Comment on above: Order Comment: << On admission If not done in ED>> No: Do not add to previous draw Performed By: #### 0 0121, 66732, 65912, 54433, 06067 #### [facility] [address] MCV (RBC) [Entitic vol] 89.4 fL Normal 82.0-98.0 [facility] Comment on above: Order Comment: << On admission If not done in ED>> No: Do not add to previous draw Performed By: #### 0 0121, 23069, 31956, 10192, 55638 #### [facility] [address] [place] [address], [facility] Nucleated RBC/100 WBC (Bld) [Ratio] 0 % Normal 0-0 [facility] Comment on above: Order Comment: << On admission If not done in ED>> No: Do not add to previous draw Performed By: #### 0 0121, 98463, 66689, 16774, 41478 #### [facility] [address] [place] [address], [facility] PLAT CNT 144 10*3/uL Low 150-400 [facility] Comment on above: Order Comment: << On admission If not done in ED>> No: Do not add to previous draw Performed By: #### 0 0121, 53759, 34886, 88298, 24049 #### [facility] [address] [place] [address], [facility] RBC (Bld) [#/Vol] 4.45 10*6/uL Normal 4.20-5.70 [facility] Comment on above: Order Comment: << On admission If not done in ED>> No: Do not add to previous draw Performed By: #### 0 0121, 47400, 94033, 77129, 16423 #### [facility] [address] [place] [address], [facility] WBC (Bld) [#/Vol] 18.51 10*3/uL High 4.00-10.60 [facility] Comment on above: Order Comment: << On admission If not done in ED>> No: Do not add to previous draw Performed By: #### 0 0121, 52156, 52396, 30748, 74385 #### [facility] [address] [place] [address], [facility] Erythrocyte distribution width (RBC) [Ratio] 13.1 % Normal 11.5-15.0 [facility] Comment on above: Order Comment: << On admission If not done in ED>> No: Do not add to previous draw Performed By: #### 0 0121, 04082, 66793, 24597, 93425 #### [facility] [address] [place] [address], [facility] Hematocrit (Bld) [Volume fraction] 43.9 % Normal 39.0-50.0 [facility] Comment on above: Order Comment: << On admission If not done in ED>> No: Do not add to previous draw Performed By: #### 0 0121, 19163, 10501, 53778, 48685 #### [facility] [address] [place] [address], [facility] Hemoglobin (Bld) [Mass/Vol] 13.9 g/dL Normal 13.0-17.0 [facility] Comment on above: Order Comment: << On admission If not done in ED>> No: Do not add to previous draw Performed By: #### 0 0121, 57357, 47716, 90791, 86209 #### [facility] [address] [place] [address], [facility] MCH (RBC) [Entitic mass] 28.7 pg Normal 27.0-33.0 [facility] Comment on above: Order Comment: << On admission If not done in ED>> No: Do not add to previous draw Performed By: #### 0 0121, 25258, 31183, 01164, 32663 #### [facility] [address] [place] [address], [facility] MCHC (RBC) [Mass/Vol] 31.7 g/dL Low 32.0-35.0 [facility] Comment on above: Order Comment: << On admission If not done in ED>> No: Do not add to previous draw Performed By: #### 0 0121, 16684, 49021, 61224, 03813 #### [facility] [address] [place] [address], [facility] MCV (RBC) [Entitic vol] 90.5 fL Normal 82.0-98.0 [facility] Comment on above: Order Comment: << On admission If not done in ED>> No: Do not add to previous draw Performed By: #### 0 0121, 86758, 25334, 49734, 17828 #### [facility] [address] [place] [address], [facility] PLAT CNT 185 10*3/uL Normal 150-400 [facility] Comment on above: Order Comment: << On admission If not done in ED>> No: Do not add to previous draw Performed By: #### 0 0121, 83597, 13604, 30722, 71424 #### [facility] [address] [place] [address], [facility] RBC (Bld) [#/Vol] 4.85 10*6/uL Normal 4.20-5.70 [facility] Comment on above: Order Comment: << On admission If not done in ED>> No: Do not add to previous draw Performed By: #### 0 0121, 68248, 85475, 47555, 54238 #### [facility] [address] [place] [address], [facility] WBC (Bld) [#/Vol] 19.37 10*3/uL High 4.00-10.60 [facility] Comment on above: Order Comment: << On admission If not done in ED>> No: Do not add to previous draw Performed By: #### 0 0121, 67930, 37220, 46763, 21016 #### [facility] [address] [place] [address], [facility] Hematocrit (Bld) [Volume fraction] 42.3 % Normal 39.0-50.0 [facility] Comment on above: Order Comment: << On admission If not done in ED>> No: Do not add to previous draw Performed By: #### 0 0121, 16651, 72902, 77111, 25868 #### [facility] [address] [place] [address], [facility] Hemoglobin (Bld) [Mass/Vol] 14.0 g/dL Normal 13.0-17.0 [facility] Comment on above: Order Comment: << On admission If not done in ED>> No: Do not add to previous draw Performed By: #### 0 0121, 61452, 87395, 82685, 11378 #### [facility] [address] [place] [address], [facility] MCH (RBC) [Entitic mass] 29.2 pg Normal 27.0-33.0 [facility] Comment on above: Order Comment: << On admission If not done in ED>> No: Do not add to previous draw Performed By: #### 0 0121, 54606, 83864, 45408, 45312 #### [facility] [address] [place] [address], [facility] MCHC (RBC) [Mass/Vol] 33.1 g/dL Normal 32.0-35.0 [facility] Comment on above: Order Comment: << On admission If not done in ED>> No: Do not add to previous draw Performed By: #### 0 0121, 91033, 25209, 52856, 41987 #### [facility] [address] [place] [address], [facility] MCV (RBC) [Entitic vol] 88.3 fL Normal 82.0-98.0 [facility] Comment on above: Order Comment: << On admission If not done in ED>> No: Do not add to previous draw Performed By: #### 0 0121, 63079, 96200, 76987, 27605 #### [facility] [address] [place] [address], [facility] PLAT CNT 169 10*3/uL Normal 150-400 [facility] Comment on above: Order Comment: << On admission If not done in ED>> No: Do not add to previous draw Performed By: #### 0 0121, 78061, 54137, 09244, 44716 #### [facility] [address] [place] [address], [facility] RBC (Bld) [#/Vol] 4.79 10*6/uL Normal 4.20-5.70 [facility] Comment on above: Order Comment: << On admission If not done in ED>> No: Do not add to previous draw Performed By: #### 0 0121, 16787, 92312, 60755, 28712 #### [facility] [address] [place] [address], [facility] WBC (Bld) [#/Vol] 19.78 10*3/uL High 4.00-10.60 [facility] Comment on above: Order Comment: << On admission If not done in ED>> No: Do not add to previous draw Performed By: #### 0 0121, 41783, 16015, 23707, 06007 #### [facility] [address] [place] [address], [facility] COOXIMETRYon 03-20-2019 COHB 2 % Normal [facility] Comment on above: Performed By: #### 0 0121, 54253, 18179, 70637, 29329 #### [facility] [address] [place] [address], [facility] METHB 0 % Normal [facility] Comment on above: Performed By: #### 0 0121, 74107, 33416, 14156, 51088 #### [facility] [address] [place] [address], [facility] Oxygen saturation in Blood 68.0 % Normal 65.0-75.0 [facility] Comment on above: Performed By: #### 0 0121, 73336, 00124, 06267, 39262 #### [facility] [address] THB 13.2 g/dL Normal [facility] Comment on above: Performed By: #### 0 0121, 62244, 76432, 00703, 00899 #### [facility] [address] CPK-MB PROFILEon 03-20-2019 CK [Catalytic activity/Vol] 2914 U/L Critically high 30-223 [facility] Comment on above: Order Comment: << On admission If not done in ED>> No: Do not add to previous draw Performed By: #### 0 0121, 67951, 03738, 68752, 71067 #### [facility] [address] CK.MB [Mass/Vol] 3.8 ng/mL Critically high 0.0-1.9 [facility] Comment on above: Order Comment: << On admission If not done in ED>> No: Do not add to previous draw Result Comment: M-CR ITICAL RESULT(S) REVIEWED, CALLED TO AND READ BACK BY DAKOTAH MONTANO RN AT 0550 Performed By: #### 0 0121, 55904, 33061, 75844, 62301 #### [facility] [address] CK.MB [Mass/Vol] 111.1 ng/mL High 0.0-5.0 [facility] Comment on above: Order Comment: << On admission If not done in ED>> No: Do not add to previous draw Result Comment: IF T OTAL CK <200 U/L AND: 1. CKMB IS 5-10 NG/ML----BORDERLINE 2. CKMB IS >10 NG/ML----INDICATIVE OF HI OR IF TOTAL CK >200 U/L AND CKMB INDEX >1.9----INDICATIVE OF HI Performed By: #### 0 0121, 53548, 30378, 15825, 04899 #### [facility] [address] [place] [address], [facility] LACTATE BLOODon 03-20-2019 Lactate [Moles/Vol] 1.9 mmol/L Normal 0.5-2.2 [facility] Comment on above: Order Comment: << On admission If not done in ED>> No: Do not add to previous draw Performed By: #### 0 0121, 17702, 41928, 63455, 43898 #### [facility] [address] [place] [address], [facility] Lactate [Moles/Vol] 3.1 mmol/L Critically high 0.5-2.2 [facility] Comment on above: Order Comment: << On admission If not done in ED>> No: Do not add to previous draw Result Comment: M-SC EVIOUS CRITICAL RESULT Performed By: #### 0 0121, 76753, 25529, 92105, 97337 #### [facility] [address] [place] [address], [facility] Lactate [Moles/Vol] 2.7 mmol/L Critically high 0.5-2.2 [facility] Comment on above: Order Comment: << On admission If not done in ED>> No: Do not add to previous draw Result Comment: M-SC EVIOUS CRITICAL RESULT Performed By: #### 0 0121, 07364, 99367, 29605, 21559 #### [facility] [address] [place] [address], [facility] MAGNESIUM BLOODon 03-20-2019 Magnesium [Mass/Vol] 2.1 mg/dL Normal 1.9-2.7 [facility] Comment on above: Order Comment: << On admission If not done in ED>> No: Do not add to previous draw Performed By: #### 0 0121, 90998, 81632, 87128, 44695 #### [facility] [address] [place] [address], [facility] Magnesium [Mass/Vol] 2.3 mg/dL Normal 1.9-2.7 [facility] Comment on above: Order Comment: << On admission If not done in ED>> No: Do not add to previous draw Performed By: #### 0 0121, 70614, 26653, 21224, 85694 #### [facility] [address] [place] [address], [facility] Magnesium [Mass/Vol] 2.4 mg/dL Normal 1.9-2.7 [facility] Comment on above: Order Comment: << On admission If not done in ED>> No: Do not add to previous draw Performed By: #### 0 0121, 51214, 52678, 03417, 86052 #### [facility] [address] [address] Operative Reporton 9 Operative Report MR#: [id number] [facility] Pt. Name: Tracie Crain Room #: [id number] Discharge Date: Birthdate: 1965 OPERATIVE REPORT DATE [...] Black MD Date Trans: 03/20/2019 02:34 A/bessie [id number] cc: Titus Villegas M.D. [address] [id number] [place] [facility] Operative Report MR#: [id number] [facility] Pt. Name: Tracie Crain Room #: [id number] Discharge Date: Birthdate: 1965 OPERATIVE REPORT DATE [...] and posteromedial papillary muscle. These were 4.0 [place] stitches and they were brought out in [...] P/Timbo Black MD Date Trans: 03/20/2019 02:21 A/besise [id number] cc: Titus Villegas M.D. [address] [place] [address] Normal [facility] POC GLUCOSE LABon 03-20-2019 Glucose [Mass/Vol] 117 mg/dL High 70-100 [facility] Comment on above: Performed By: #### 0 0121, 38363, 87534, 18993, 29415 #### [facility] [address] [place] [address], [place] Glucose [Mass/Vol] 114 mg/dL High 70-100 [facility] Comment on above: Performed By: #### 0 0121, 11281, 05330, 91749, 18775 #### [facility] [address] [place] [address], [place] Glucose [Mass/Vol] 117 mg/dL High 70-100 [facility] Comment on above: Performed By: #### 0 0121, 89803, 83697, 90807, 29008 #### [facility] [address] [place] [address], [place] Glucose [Mass/Vol] 99 mg/dL Normal 70-100 [facility] Comment on above: Performed By: #### 0 0121, 11465, 75076, 42244, 89368 #### [facility] [address] [place] [address], [place] Glucose [Mass/Vol] 125 mg/dL High 70-100 [facility] Comment on above: Performed By: #### 0 0121, 80553, 00521, 49644, 19631 #### [facility] [address] [place] [address], [place] Glucose [Mass/Vol] 102 mg/dL High 70-100 [facility] Comment on above: Performed By: #### 0 0121, 21576, 00637, 98520, 60882 #### [facility] [address] [place] [address], [place] Glucose [Mass/Vol] 97 mg/dL Normal 70-100 [facility] Comment on above: Performed By: #### 0 0121, 23258, 63622, 15895, 98989 #### [facility] [address] [place] [address], [place] Glucose [Mass/Vol] 102 mg/dL High 70-100 [facility] Comment on above: Performed By: #### 0 0121, 46741, 30481, 23441, 04570 #### [facility] [address] [place] [address], [place] Glucose [Mass/Vol] 124 mg/dL High 70-100 [facility] Comment on above: Performed By: #### 0 0121, 79558, 41693, 90338, 67206 #### [facility] [address] [place] [address], [place] Glucose [Mass/Vol] 112 mg/dL High 70-100 [facility] Comment on above: Order Comment: << On admission If not done in ED>> No: Do not add to previous draw Performed By: #### 0 0121, 13181, 19705, 01776, 88428 #### [facility] [address] [place] [address], [place] Glucose [Mass/Vol] 129 mg/dL High 70-100 [facility] Comment on above: Performed By: #### 0 0121, 72536, 40170, 98338, 07272 #### [facility] [address] [place] [address], [place] Glucose [Mass/Vol] 122 mg/dL High 70-100 [facility] Comment on above: Performed By: #### 0 0121, 64088, 04312, 58457, 89510 #### [facility] [address] [place] [address], [place] Glucose [Mass/Vol] 133 mg/dL High 70-100 [facility] Comment on above: Performed By: #### 0 0121, 11819, 68977, 77406, 65344 #### [facility] [address] [place] [address], [place] Glucose [Mass/Vol] 130 mg/dL High 70-100 [facility] Comment on above: Performed By: #### 5 7307 #### [facility] [address] [place] [address], [place] Glucose [Mass/Vol] 142 mg/dL High 70-100 [facility] Comment on above: Performed By: #### 5 7307 #### [facility] [address] [facility] [place] [address], [facility] PORTABLE CHEST 1 VIEWon 03-01 PORTABLE CHEST 1 VIEW [facility] Department of Radiology [address] [place] [id number] ======== Patient Name: TRACIE CRAIN : 1965 Sex: M Age: Race: NA Pt. Location: [id number] Patient Status: I Ordered Date: 03/20/2019 8:05:00 [...] tube is 7 cm from the loki. Ben Wheeler-Sher catheter with tip projecting over the pulmonary [...] findings. Electronically signed by:Yenni Osuna. Transcribed by: [email or web address], User Resident: ANAI ALVARADO Electronically Signed by: YENNI OSUNA @ 03/22/2019 11:07 AM I personally read this/these film(s) with this resident Normal [facility] Comment on above: Order Comment: << On admission If not done in ED>> No: Do not add to previous draw PORTABLE CHEST 1 VIEW [facility] Department of Radiology [address] [place] [id number] ======== Patient Name: TRACIE CRAIN : 1965 Sex: M Age: Race: NA Pt. Location: [id number] Patient Status: I Ordered Date: 03/20/2019 5:00:00 [...] tube is 7 cm from the loki. Ben Wheeler-Sher catheter with tip projecting over the pulmonary [...] findings. Electronically signed by:Divya Collins. Transcribed by: [email or web address], User Resident: ANAI ALVARADO Electronically Signed by: DIVYA COLLINS @ 03/20/2019 11:01 AM I personally read this/these film(s) with this resident Normal [facility] Comment on above: Order Comment: << On admission If not done in ED>> No: Do not add to previous draw PROTHROMBIN TIMEon 9 INR Coag (PPP) [Relative time] 1.37 {INR} High 0.91-1.16 [facility] Comment on above: Order Comment: << [...] CHEST 1995;108:231S-246S. Performed By: #### 0 0121, 93920, 39343, 78565, 06789 #### [facility] [address] [facility] [address] PT Coag (PPP) [Time] 16.9 s High 12.3-14.8 [facility] Comment on above: Order Comment: << On admission If not done in ED>> No: Do not add to previous draw Result Comment: ALL RESULTS MUST BE INTERPRETED WITH RESPECT TO BLOOD DRAWING ARTIFACT OR DILUTION ERROR OF ANTICOAGULANT AT THE TIME OF SAMPLING. Performed By: #### 0 0121, 57900, 36382, 33720, 60397 #### [facility] [address] [place] [address], [place] ACTIVATED CLOTTING TIMEon ACTIVATED CLOTTING TIME 115 sec Normal 82-152 [facility] Comment on above: Performed By: #### 8 5123, 33966 #### [facility] [address] [place] [address], [place] ACTIVATED CLOTTING TIME 508 sec High 82-152 [facility] Comment on above: Performed By: #### 8 5123, 38090 #### [facility] [address] [place] [address], [place] ACTIVATED CLOTTING TIME 508 sec High 82-152 [facility] Comment on above: Performed By: #### 8 5123, 73517 #### [facility] [address] [place] [address], [place] ACTIVATED CLOTTING TIME 610 sec High 82-152 [facility] Comment on above: Performed By: #### 8 5123, 53007 #### [facility] [address] [place] [address], [place] ACTIVATED CLOTTING TIME 621 sec High 82-152 [facility] Comment on above: Performed By: #### 8 5123, 04127 #### [facility] [address] [place] [address], [place] ACTIVATED CLOTTING TIME 660 sec High 82-152 [facility] Comment on above: Performed By: #### 8 5123, 16037 #### [facility] [address] [place] [address], [place] ACTIVATED CLOTTING TIME 508 sec High 82-152 [facility] Comment on above: Performed By: #### 8 5123, 80188 #### [facility] [address] [place] [address], [place] ACTIVATED CLOTTING TIME 514 sec High 82-152 [facility] Comment on above: Performed By: #### 0 0121, 38534, 90612, 45506, 75271 #### [facility] [address] [place] [address], [place] ACTIVATED CLOTTING TIME 514 sec High 82-152 [facility] Comment on above: Performed By: #### 0 0121, 37939, 18053, 84039, 47271 #### [facility] [address] [place] [address], [place] ACTIVATED CLOTTING TIME 502 sec High 82-152 [facility] Comment on above: Performed By: #### 0 0121, 48949, 86766, 08822, 30594 #### [facility] [address] [place] [address], [place] ACTIVATED CLOTTING TIME 473 sec High 82-152 [facility] Comment on above: Performed By: #### 0 0121, 63350, 39510, 86667, 48334 #### [facility] [address] [place] [address], [place] ACTIVATED CLOTTING TIME 508 sec High 82-152 [facility] Comment on above: Performed By: #### 0 0121, 03088, 89854, 42090, 14474 #### [facility] [address] [place] [address], [place] ACTIVATED CLOTTING TIME 115 sec Normal 82-152 [facility] Comment on above: Performed By: #### 0 0121, 06523, 55750, 09655, 11847 #### [facility] [address] [place] [address], [place] APTTon 03-19-2019 aPTT Coag (Bld) [Time] 28.6 s Normal 25.0-35.0 [facility] Comment on above: Result Comment: ALL [...] THIS PURPOSE. Performed By: #### 8 5123, 92477 #### [facility] [address] [place] [address], [facility] aPTT Coag (Bld) [Time] 33.6 s Normal 25.0-35.0 [facility] Comment on above: Order Comment: If [...] THIS PURPOSE. Performed By: #### 0 0121, 47116, 34099, 30595, 85548 #### [facility] [address] [place] [address], [facility] ARTERIAL BLOOD GAS W/COOXon 03-19-2019 BASE EXCESS -8 mmol/L Low -2-3 [facility] Comment on above: Performed By: #### 8 170, 30472 ####[facility] [facility] [place] [address], [facility] COHB 2.6 % High 0.0-1.5 [facility] Comment on above: Performed By: #### 8 845, 67331 ####[facility] [place] [address], [facility] DELIVERY SYSTEMS VENT Normal [facility] Comment on above: Performed By: #### 8 956, 49951 ####[facility] [place] [address], [place] FIO2 100 % Normal [facility] Comment on above: Performed By: #### 8 4510, 60838 ####[facility] [place] [address], [facility] HCO3 (Bld) [Moles/Vol] 19 mmol/L Low 21-28 [facility] Comment on above: Performed By: #### 8 451, 89537 ####[facility] [place] [address], [place] METHB 0.8 % Normal 0.0-1.5 [facility] Comment on above: Performed By: #### 8 451, 19644 ####[facility] [place] [address], [facility] MIN VOLUME 11.6 Normal [facility] Comment on above: Performed By: #### 8 451, 58587 ####[facility] [place] [address], [facility] MODALITY AC Normal [facility] Comment on above: Performed By: #### 8 565, 26933 ####[facility] [place] [address], [facility] Oxygen (Bld) [Partial pressure] 61 mm[Hg] Low 83-108 [facility] Comment on above: Performed By: #### 8 451, 56829 ####[facility] [place] [address], [facility] Oxygen saturation in Blood 88.9 % Low 94.0-97.0 [facility] Comment on above: Performed By: #### 8 658, 79347 ####[facility] [place] [address], [facility] PCO2 43 mmHg Normal 35-45 [facility] Comment on above: Performed By: #### 8 359, 50818 ####[facility] [place] [address], [place] PEEP 10.0 CMH20 Normal [facility] Comment on above: Performed By: #### 8 2641, 81014 ####[facility] [place] [address], [facility] pH (Bld) 7.26 [pH] Low 7.35-7.45 [facility] Comment on above: Result Comment: KINJAL REYNOSO NOTE: Effective 12/02/18, reference ranges for Respiratory GEM analyzers running arterial blood have been updated to reflect the technical professional's published reference ranges. Performed By: #### 8 9261, 12640 ####[facility] [place] [address], [facility] THB 14.2 g/dL Normal 12.0-16.3 [facility] Comment on above: Performed By: #### 8 4721, 28457 ####[facility] [place] [address], [facility] TIDAL VOLUME (VT) CC 700 cc Normal [facility] Comment on above: Performed By: #### 8 9741, 62653 ####[facility] [place] [address], [facility] ARTERIAL BLOOD GAS WITH ICAo n 03-19-2019 BASE EXCESS -4 mmol/L Low -2-3 [facility] Comment on above: Performed By: #### 5 7307 #### [facility] [address] [place] [address], [facility] DELIVERY SYSTEMS MV Normal [facility] Comment on above: Performed By: #### 5 7307 #### [facility] [address] [place] [address], [place] FIO2 100 % Normal [facility] Comment on above: Performed By: #### 5 7307 #### [facility] [address] [place] [address], [place] HCO3 (Bld) [Moles/Vol] 20 mmol/L Low 21-28 [facility] Comment on above: Performed By: #### 5 7307 #### [facility] [address] [place] [address], [place] IONIZED CALCIUM 1.21 mmol/L Normal 1.13-1.32 [facility] Comment on above: Performed By: #### 5 7307 #### [facility] [address] [place] [address], [place] MIN VOLUME 13.6 Normal [facility] Comment on above: Performed By: #### 5 7307 #### [facility] [address] [place] [address], [place] MODALITY AC Normal [facility] Comment on above: Performed By: #### 5 7307 #### [facility] [address] [place] [address], [place] Oxygen (Bld) [Partial pressure] 74 mm[Hg] Low 83-108 [facility] Comment on above: Performed By: #### 5 7307 #### [facility] [address] [place] [address], [place] Oxygen saturation in Blood 93.5 % Low 94.0-97.0 [facility] Comment on above: Performed By: #### 5 7307 #### [facility] [address] [place] [address], [place] PCO2 33 mmHg Low 35-45 [facility] Comment on above: Performed By: #### 5 7307 #### [facility] [address] [place] [address], [place] PEEP 10.0 CMH20 Normal [facility] Comment on above: Performed By: #### 5 7307 #### [facility] [address] [place] [address], [place] PF RATIO 74 mmHg Normal [facility] Comment on above: Performed By: #### 5 7307 #### [facility] [address] [place] [address], [place] pH (Bld) 7.39 [pH] Normal 7.35-7.45 [facility] Comment on above: Result Comment: KINJAL REYNOSO NOTE: Effective 12/02/18, reference ranges for Respiratory GEM analyzers running arterial blood have been updated to reflect the technical professional's published reference ranges. Performed By: #### 5 7307 #### [facility] [address] TIDAL VOLUME (VT) CC 700 cc Normal [facility] Comment on above: Performed By: #### 5 7307 #### [facility] [address] [facility]. [address] BASE EXCESS -7 mmol/L Low -2-3 [facility] Comment on above: Order Comment: R/O P ulmonary Edema Performed By: #### 8 162, 35498 ####[facility] DELIVERY SYSTEMS MV Normal [facility] Comment on above: Order Comment: R/O P ulmonary Edema Performed By: #### 8 9101, 41403 ####[facility] FIO2 100 % Normal [facility] Comment on above: Order Comment: R/O P ulmonary Edema Performed By: #### 8 509, 67900 ####[facility] HCO3 (Bld) [Moles/Vol] 21 mmol/L Normal 21-28 [facility] Comment on above: Order Comment: R/O P ulmonary Edema Performed By: #### 8 343, 00546 ####[facility] IONIZED CALCIUM 1.36 mmol/L High 1.13-1.32 [facility] Comment on above: Order Comment: R/O P ulmonary Edema Performed By: #### 8 4511, 82219 ####[facility] [place] [address], [facility] MIN VOLUME 13.0 Normal [facility] Comment on above: Order Comment: R/O P ulmonary Edema Performed By: #### 8 4511, 58494 ####[facility] [place] [address], [facility] MODALITY SIMV Normal [facility] Comment on above: Order Comment: R/O P ulmonary Edema Performed By: #### 8 4511, 80399 ####[facility] [place] [address], [facility] Oxygen (Bld) [Partial pressure] 63 mm[Hg] Low 83-108 [facility] Comment on above: Order Comment: R/O P ulmonary Edema Performed By: #### 8 4511, 62109 ####[facility] [place] [address], [facility] Oxygen saturation in Blood 89.3 % Low 94.0-97.0 [facility] Comment on above: Order Comment: R/O P ulmonary Edema Performed By: #### 8 4511, 65348 ####[facility] [place] [address], [facility] PCO2 46 mmHg High 35-45 [facility] Comment on above: Order Comment: R/O P ulmonary Edema Performed By: #### 8 4511, 72796 ####[facility] [place] [address], [facility] PEEP 8.0 CMH20 Normal [facility] Comment on above: Order Comment: R/O P ulmonary Edema Performed By: #### 8 4511, 72482 ####[facility] [place] [address], [place] PF RATIO 63 mmHg Normal [facility] Comment on above: Order Comment: R/O P ulmonary Edema Performed By: #### 8 6051, 06870 ####[facility] [place] [address], [facility] pH (Bld) 7.26 [pH] Low 7.35-7.45 [facility] Comment on above: Order Comment: R/O P ulmonary Edema Result Comment: KINJAL REYNOSO NOTE: Effective 12/02/18, reference ranges for Respiratory GEM analyzers running arterial blood have been updated to reflect the technical professional's published reference ranges. Performed By: #### 8 4521, 95609 ####[facility] PRESSURE SUPPORT 5 Normal [facility] Comment on above: Order Comment: R/O P ulmonary Edema Performed By: #### 8 5211, 85817 ####[facility] TIDAL VOLUME (VT) CC 600 cc Normal [facility] Comment on above: Order Comment: R/O P ulmonary Edema Performed By: #### 8 5011, 33480 ####[facility] BASIC METABOLIC PANELon 06-2 0-2018 Calcium [Mass/Vol] 8.6 mg/dL Normal 8.6-10.3 [facility] Comment on above: Order Comment: No: D o not add to previous draw Performed By: #### 5 7307 #### [facility] [address] [place] [address], [facility] Chloride [Moles/Vol] 113 mmol/L High 98-107 [facility] Comment on above: Order Comment: No: D o not add to previous draw Performed By: #### 5 7325 #### [facility] [address] [place] [id number], [place] CO2 [Moles/Vol] 21 mmol/L Normal 21-31 [facility] Comment on above: Order Comment: No: D o not add to previous draw Performed By: #### 5 7307 #### [facility] [address] [place] [address], [facility] Creatinine [Mass/Vol] 1.14 mg/dL Normal 0.70-1.30 [facility] Comment on above: Order Comment: No: D o not add to previous draw Performed By: #### 5 7307 #### [facility] [address] [place] [address], [facility] GFR/1.73 sq M predicted among blacks MDRD (S/P/Bld) [Vol rate/Area] mL/min/{1.73_m2} Normal >60 [facility] Comment on above: Order Comment: No: D o not add to previous draw Performed By: #### 5 7307 #### [facility] [address] [place] [address], [facility] GFR/1.73 sq M predicted among non-blacks MDRD (S/P/Bld) [Vol rate/Area] mL/min/{1.73_m2} Normal >60 [facility] Comment on above: Order Comment: No: D o not add to previous draw Performed By: #### 5 7307 #### [facility] [address] [place] [address], [place] Glucose [Mass/Vol] 164 mg/dL High 70-100 [facility] Comment on above: Order Comment: No: D o not add to previous draw Performed By: #### 5 7307 #### [facility] [address] [place] [address], [place] Potassium [Moles/Vol] 4.3 mmol/L Normal 3.5-5.1 [facility] Comment on above: Order Comment: No: D o not add to previous draw Performed By: #### 5 7307 #### [facility] [address] [place] [address], [place] Sodium [Moles/Vol] 142 mmol/L Normal 136-145 [facility] Comment on above: Order Comment: No: D o not add to previous draw Performed By: #### 5 7307 #### [facility] [address] [place] [address], [place] Urea nitrogen [Mass/Vol] 19 mg/dL Normal 7-25 [facility] Comment on above: Order Comment: No: D o not add to previous draw Performed By: #### 5 7307 #### [facility] [address] [place] [address], [place] Calcium [Mass/Vol] 9.8 mg/dL Normal 8.6-10.3 [facility] Comment on above: Order Comment: If no t done in ED No: Do not add to previous draw Performed By: #### 8 5123, 90832 #### [facility] [address] [place] [address], [place] Chloride [Moles/Vol] 112 mmol/L High 98-107 [facility] Comment on above: Order Comment: If no t done in ED No: Do not add to previous draw Performed By: #### 8 5123, 86636 #### [facility] [address] [place] [address], [place] CO2 [Moles/Vol] 21 mmol/L Normal 21-31 [facility] Comment on above: Order Comment: If no t done in ED No: Do not add to previous draw Performed By: #### 8 5123, 26920 #### [facility] [address] [place] [address], [place] Creatinine [Mass/Vol] 1.07 mg/dL Normal 0.70-1.30 [facility] Comment on above: Order Comment: If no t done in ED No: Do not add to previous draw Performed By: #### 8 5123, 71922 #### [facility] [address] [place] [address], [place] GFR/1.73 sq M predicted among blacks MDRD (S/P/Bld) [Vol rate/Area] mL/min/{1.73_m2} Normal >60 [facility] Comment on above: Order Comment: If no t done in ED No: Do not add to previous draw Performed By: #### 8 5123, 77665 #### [facility] [address] [place] [address], [place] GFR/1.73 sq M predicted among non-blacks MDRD (S/P/Bld) [Vol rate/Area] mL/min/{1.73_m2} Normal >60 [facility] Comment on above: Order Comment: If no t done in ED No: Do not add to previous draw Performed By: #### 8 5123, 28057 #### [facility] [address] [place] [address], [place] Glucose [Mass/Vol] 147 mg/dL High 70-100 [facility] Comment on above: Order Comment: If no t done in ED No: Do not add to previous draw Performed By: #### 8 5123, 13518 #### [facility] [address] [place] [address], [place] Potassium [Moles/Vol] 3.9 mmol/L Normal 3.5-5.1 [facility] Comment on above: Order Comment: If no t done in ED No: Do not add to previous draw Performed By: #### 8 5123, 58463 #### [facility] [address] [place] [address], [place] Sodium [Moles/Vol] 142 mmol/L Normal 136-145 [facility] Comment on above: Order Comment: If no t done in ED No: Do not add to previous draw Performed By: #### 8 5123, 46580 #### [facility] [address] [place] [address], [place] Urea nitrogen [Mass/Vol] 19 mg/dL Normal 7-25 [facility] Comment on above: Order Comment: If no t done in ED No: Do not add to previous draw Performed By: #### 8 5123, 02377 #### [facility] [address] [place] [address], [place] Calcium [Mass/Vol] 9.5 mg/dL Normal 8.6-10.3 [facility] Comment on above: Order Comment: If no t done in ED No: Do not add to previous draw Performed By: #### 0 0121, 88108, 77380, 92492, 66456 #### [facility] [address] [place] [address], [place] Chloride [Moles/Vol] 105 mmol/L Normal 98-107 [facility] Comment on above: Order Comment: If no t done in ED No: Do not add to previous draw Performed By: #### 0 0121, 12715, 85217, 76865, 64014 #### [facility] [address] [place] [address], [place] CO2 [Moles/Vol] 24 mmol/L Normal 21-31 [facility] Comment on above: Order Comment: If no t done in ED No: Do not add to previous draw Performed By: #### 0 0121, 20294, 29249, 56710, 27095 #### [facility] [address] [place] [address], [place] Creatinine [Mass/Vol] 1.11 mg/dL Normal 0.70-1.30 [facility] Comment on above: Order Comment: If no t done in ED No: Do not add to previous draw Performed By: #### 0 0121, 63644, 86401, 82566, 08458 #### [facility] [address] [place] [address], [place] GFR/1.73 sq M predicted among blacks MDRD (S/P/Bld) [Vol rate/Area] mL/min/{1.73_m2} Normal >60 [facility] Comment on above: Order Comment: If no t done in ED No: Do not add to previous draw Performed By: #### 0 0121, 41050, 99149, 57229, 31655 #### [facility] [address] [place] [address], [place] GFR/1.73 sq M predicted among non-blacks MDRD (S/P/Bld) [Vol rate/Area] mL/min/{1.73_m2} Normal >60 [facility] Comment on above: Order Comment: If no t done in ED No: Do not add to previous draw Performed By: #### 0 0121, 42616, 58503, 55599, 46153 #### [facility] [address] [place] [address], [place] Glucose [Mass/Vol] 89 mg/dL Normal 70-100 [facility] Comment on above: Order Comment: If no t done in ED No: Do not add to previous draw Performed By: #### 0 0121, 80054, 45692, 58728, 54736 #### [facility] [address] [place] [address], [place] Potassium [Moles/Vol] 4.2 mmol/L Normal 3.5-5.1 [facility] Comment on above: Order Comment: If no t done in ED No: Do not add to previous draw Performed By: #### 0 0121, 20558, 41732, 27910, 10407 #### [facility] [address] [place] [address], [place] Sodium [Moles/Vol] 135 mmol/L Low 136-145 [facility] Comment on above: Order Comment: If no t done in ED No: Do not add to previous draw Performed By: #### 0 0121, 89852, 92837, 04280, 61906 #### [facility] [address] [place] [address], [facility] Urea nitrogen [Mass/Vol] 17 mg/dL Normal 7-25 [facility] Comment on above: Order Comment: If no t done in ED No: Do not add to previous draw Performed By: #### 0 0121, 24883, 55863, 76166, 45177 #### [facility] [address] [place] [address], [facility] CBC COMPLETE BLOOD COUNTon 0 03-19-2019 Erythrocyte distribution width (RBC) [Ratio] 13.0 % Normal 11.5-15.0 [facility] Comment on above: Order Comment: No: D o not add to previous draw Performed By: #### 5 7307 #### [facility] [address] [place] [address], [facility] Hematocrit (Bld) [Volume fraction] 42.7 % Normal 39.0-50.0 [facility] Comment on above: Order Comment: No: D o not add to previous draw Performed By: #### 5 7307 #### [facility] [address] [place] [address], [facility] Hemoglobin (Bld) [Mass/Vol] 14.3 g/dL Normal 13.0-17.0 [facility] Comment on above: Order Comment: No: D o not add to previous draw Performed By: #### 5 7307 #### [facility] [address] [place] [address], [facility] MCH (RBC) [Entitic mass] 29.4 pg Normal 27.0-33.0 [facility] Comment on above: Order Comment: No: D o not add to previous draw Performed By: #### 5 7307 #### [facility] [address] [place] [address], [facility] MCHC (RBC) [Mass/Vol] 33.5 g/dL Normal 32.0-35.0 [facility] Comment on above: Order Comment: No: D o not add to previous draw Performed By: #### 5 7307 #### [facility] [address] [place] [address], [facility] MCV (RBC) [Entitic vol] 87.9 fL Normal 82.0-98.0 [facility] Comment on above: Order Comment: No: D o not add to previous draw Performed By: #### 5 7307 #### [facility] [address] [place] [address], [facility] Nucleated RBC/100 WBC (Bld) [Ratio] 0 % Normal 0-0 [facility] Comment on above: Order Comment: No: D o not add to previous draw Performed By: #### 5 7307 #### [facility] [address] [place] [id number], [facility] PLAT CNT 179 10*3/uL Normal 150-400 [facility] Comment on above: Order Comment: No: D o not add to previous draw Performed By: #### 5 7307 #### [facility] [address] [place] [address], [facility] RBC (Bld) [#/Vol] 4.86 10*6/uL Normal 4.20-5.70 [facility] Comment on above: Order Comment: No: D o not add to previous draw Performed By: #### 5 7307 #### [facility] [address] [place] [address], [facility] WBC (Bld) [#/Vol] 26.36 10*3/uL High 4.00-10.60 [facility] Comment on above: Order Comment: No: D o not add to previous draw Performed By: #### 5 7307 #### [facility] [address] [place] [id number], [facility] Erythrocyte distribution width (RBC) [Ratio] 13.0 % Normal 11.5-15.0 [facility] Comment on above: Order Comment: R/O P ulmonary Edema Performed By: #### 5 0608 ####[facility] Hematocrit (Bld) [Volume fraction] 47.1 % Normal 39.0-50.0 [facility] Comment on above: Order Comment: R/O P ulmonary Edema Performed By: #### 5 0608 ####[facility] Hemoglobin (Bld) [Mass/Vol] 15.0 g/dL Normal 13.0-17.0 [facility] Comment on above: Order Comment: R/O P ulmonary Edema Performed By: #### 5 0608 ####[facility] MCH (RBC) [Entitic mass] 29.4 pg Normal 27.0-33.0 [facility] Comment on above: Order Comment: R/O P ulmonary Edema Performed By: #### 5 0608 ####[facility] MCHC (RBC) [Mass/Vol] 31.8 g/dL Low 32.0-35.0 [facility] Comment on above: Order Comment: R/O P ulmonary Edema Performed By: #### 5 0608 ####[facility] MCV (RBC) [Entitic vol] 92.4 fL Normal 82.0-98.0 [facility] Comment on above: Order Comment: R/O P ulmonary Edema Performed By: #### 5 0608 ####[facility] Nucleated RBC/100 WBC (Bld) [Ratio] 0 % Normal 0-0 [facility] Comment on above: Order Comment: R/O P ulmonary Edema Performed By: #### 5 0608 ####[facility] [place] [address], [facility] PLAT CNT 188 10*3/uL Normal 150-400 [facility] Comment on above: Order Comment: R/O P ulmonary Edema Performed By: #### 5 0608 ####[facility] [place] [address], [facility] RBC (Bld) [#/Vol] 5.10 10*6/uL Normal 4.20-5.70 [facility] Comment on above: Order Comment: R/O P ulmonary Edema Performed By: #### 5 0608 ####[facility] [facility] [place] [address], [facility] WBC (Bld) [#/Vol] 31.20 10*3/uL High 4.00-10.60 [facility] Comment on above: Order Comment: R/O P ulmonary Edema Performed By: #### 5 0608 ####[facility] [place] [address], [facility] Erythrocyte distribution width (RBC) [Ratio] 13.0 % Normal 11.5-15.0 [facility] Comment on above: Order Comment: If no t done in ED No: Do not add to previous draw Performed By: #### 8 5123, 90104 #### [facility] [address] [place] [address], [facility] Hematocrit (Bld) [Volume fraction] 44.2 % Normal 39.0-50.0 [facility] Comment on above: Order Comment: If no t done in ED No: Do not add to previous draw Performed By: #### 8 3243, 76166 #### [facility] [address] [place] [address], [facility] Hemoglobin (Bld) [Mass/Vol] 14.4 g/dL Normal 13.0-17.0 [facility] Comment on above: Order Comment: If no t done in ED No: Do not add to previous draw Performed By: #### 8 5123, 50853 #### [facility] [address] [place] [id number], [facility] MCH (RBC) [Entitic mass] 28.8 pg Normal 27.0-33.0 [facility] Comment on above: Order Comment: If no t done in ED No: Do not add to previous draw Performed By: #### 8 5123, 62553 #### [facility] [address] [place] [id number], [facility] MCHC (RBC) [Mass/Vol] 32.6 g/dL Normal 32.0-35.0 [facility] Comment on above: Order Comment: If no t done in ED No: Do not add to previous draw Performed By: #### 8 5123, 99567 #### [facility] [address] [place] [id number], [facility] MCV (RBC) [Entitic vol] 88.4 fL Normal 82.0-98.0 [facility] Comment on above: Order Comment: If no t done in ED No: Do not add to previous draw Performed By: #### 8 5123, 80182 #### [facility] [address] [place] [address], [facility] Nucleated RBC/100 WBC (Bld) [Ratio] 0 % Normal 0-0 [facility] Comment on above: Order Comment: If no t done in ED No: Do not add to previous draw Performed By: #### 8 5123, 18869 #### [facility] [address] [place] [address], [place] PLAT CNT 166 10*3/uL Normal 150-400 [facility] Comment on above: Order Comment: If no t done in ED No: Do not add to previous draw Performed By: #### 8 5123, 06449 #### [facility] [address] [place] [id number], [facility] RBC (Bld) [#/Vol] 5.00 10*6/uL Normal 4.20-5.70 [facility] Comment on above: Order Comment: If no t done in ED No: Do not add to previous draw Performed By: #### 8 5123, 48428 #### [facility] [address] [place] [address], [place] WBC (Bld) [#/Vol] 33.13 10*3/uL High 4.00-10.60 [facility] Comment on above: Order Comment: If no t done in ED No: Do not add to previous draw Performed By: #### 8 5123, 29486 #### [facility] [address] [place] [address], [facility] Erythrocyte distribution width (RBC) [Ratio] 13.0 % Normal 11.5-15.0 [facility] Comment on above: Order Comment: If no t done in ED No: Do not add to previous draw Performed By: #### 0 0121, 74854, 22972, 41615, 61495 #### [facility] [address] [place] [address], [facility] Hematocrit (Bld) [Volume fraction] 55.7 % High 39.0-50.0 [facility] Comment on above: Order Comment: If no t done in ED No: Do not add to previous draw Performed By: #### 0 0121, 73383, 13842, 37467, 73325 #### [facility] [address] [place] [address], [place] Hemoglobin (Bld) [Mass/Vol] 18.2 g/dL High 13.0-17.0 [facility] Comment on above: Order Comment: If no t done in ED No: Do not add to previous draw Performed By: #### 0 0121, 30450, 51296, 43947, 51044 #### [facility] [address] [place] [address], [place] MCH (RBC) [Entitic mass] 28.6 pg Normal 27.0-33.0 [facility] Comment on above: Order Comment: If no t done in ED No: Do not add to previous draw Performed By: #### 0 0121, 38491, 33681, 64747, 75869 #### [facility] [address] [place] [address], [facility] MCHC (RBC) [Mass/Vol] 32.7 g/dL Normal 32.0-35.0 [facility] Comment on above: Order Comment: If no t done in ED No: Do not add to previous draw Performed By: #### 0 0121, 15439, 94482, 58944, 09951 #### [facility] [address] [place] [address], [facility] MCV (RBC) [Entitic vol] 87.4 fL Normal 82.0-98.0 [facility] Comment on above: Order Comment: If no t done in ED No: Do not add to previous draw Performed By: #### 0 0121, 62474, 73392, 17164, 61326 #### [facility] [address] [place] [id number], [facility] Nucleated RBC/100 WBC (Bld) [Ratio] 0 % Normal 0-0 [facility] Comment on above: Order Comment: If no t done in ED No: Do not add to previous draw Performed By: #### 0 0121, 53825, 87597, 29007, 15709 #### [facility] [address] [place] [address], [facility] PLAT CNT 288 10*3/uL Normal 150-400 [facility] Comment on above: Order Comment: If no t done in ED No: Do not add to previous draw Performed By: #### 0 0121, 65457, 88182, 89430, 39628 #### [facility] [address] [place] [address], [facility] RBC (Bld) [#/Vol] 6.37 10*6/uL High 4.20-5.70 [facility] Comment on above: Order Comment: If no t done in ED No: Do not add to previous draw Performed By: #### 0 0121, 75541, 06884, 46511, 75326 #### [facility] [address] [place] [address], [facility] WBC (Bld) [#/Vol] 11.26 10*3/uL High 4.00-10.60 [facility] Comment on above: Order Comment: If no t done in ED No: Do not add to previous draw Performed By: #### 0 0121, 56519, 48699, 24159, 12433 #### [facility] [address] COMP METABOLIC PANELon 03-19 Albumin [Mass/Vol] 3.8 g/dL Normal 3.5-5.7 [facility] Comment on above: Order Comment: R/O P ulmonary Edema Performed By: #### 0 0121, 34190, 26931 ####[facility] ALKALINE PHOSPH 30 IU/L Low 34-104 [facility] Comment on above: Order Comment: R/O P ulmonary Edema Performed By: #### 0 0121, 41698, 54511 ####[facility] ALT [Catalytic activity/Vol] 37 U/L Normal 7-52 [facility] Comment on above: Order Comment: R/O P ulmonary Edema Performed By: #### 0 0121, 34949, 08308 ####[facility] AST [Catalytic activity/Vol] 154 U/L High 13-39 [facility] Comment on above: Order Comment: R/O P ulmonary Edema Performed By: #### 0 0121, 46166, 33322 ####[facility] [place] [address], [facility] Bilirubin [Mass/Vol] 1.9 mg/dL High 0.3-1.0 [facility] Comment on above: Order Comment: R/O P ulmonary Edema Performed By: #### 0 0121, 90264, 48236 ####[facility] [place] [address], [facility] Calcium [Mass/Vol] 8.9 mg/dL Normal 8.6-10.3 [facility] Comment on above: Order Comment: R/O P ulmonary Edema Performed By: #### 0 0121, 60840, 00398 ####[facility] [facility] [place] [address], [facility] Chloride [Moles/Vol] 113 mmol/L High 98-107 [facility] Comment on above: Order Comment: R/O P ulmonary Edema Performed By: #### 0 0121, 98555, 49700 ####[facility] [facility] [place] [address], [facility] CO2 [Moles/Vol] 13 mmol/L Critically low 21-31 [facility] Comment on above: Order Comment: R/O P ulmonary Edema Result Comment: M-CR ITICAL RESULT(S) REVIEWED, CALLED TO AND READ BACK BY PEDRO CEDENO @1940 03.19.19 Performed By: #### 0 0121, 57537, 20341 ####[facility] [place] [address], [facility] Creatinine [Mass/Vol] 1.11 mg/dL Normal 0.70-1.30 [facility] Comment on above: Order Comment: R/O P ulmonary Edema Performed By: #### 0 0121, 23662, 56313 ####[facility] [facility] [place] [address], [facility] GFR/1.73 sq M predicted among blacks MDRD (S/P/Bld) [Vol rate/Area] mL/min/{1.73_m2} Normal >60 [facility] Comment on above: Order Comment: R/O P ulmonary Edema Performed By: #### 0 0121, 50314, 74916 ####[facility] [place] [address], [facility] GFR/1.73 sq M predicted among non-blacks MDRD (S/P/Bld) [Vol rate/Area] mL/min/{1.73_m2} Normal >60 [facility] Comment on above: Order Comment: R/O P ulmonary Edema Performed By: #### 0 0121, 64911, 57592 ####[facility] [place] [address], [facility] Glucose [Mass/Vol] 132 mg/dL High 70-100 [facility] Comment on above: Order Comment: R/O P ulmonary Edema Performed By: #### 0 0121, 54179, 71960 ####[facility] [facility] [place] [place] [address], [facility] Potassium [Moles/Vol] 4.4 mmol/L Normal 3.5-5.1 [facility] Comment on above: Order Comment: R/O P ulmonary Edema Performed By: #### 0 0121, 10375, 72720 ####[facility] [place] [address], [facility] Protein [Mass/Vol] 5.6 g/dL Low 6.0-8.3 [facility] Comment on above: Order Comment: R/O P ulmonary Edema Performed By: #### 0 0121, 29014, 53771 ####[facility] [place] [address], [place] Sodium [Moles/Vol] 140 mmol/L Normal 136-145 [facility] Comment on above: Order Comment: R/O P ulmonary Edema Performed By: #### 0 0121, 02004, 60047 ####[facility] [place] [address], [place] Urea nitrogen [Mass/Vol] 18 mg/dL Normal 7-25 [facility] Comment on above: Order Comment: R/O P ulmonary Edema Performed By: #### 0 0121, 97280, 46003 ####[facility] [place] [address], [place] COOXIMETRYon 03-19-2019 COHB 2 % Normal [facility] Comment on above: Order Comment: No: D o not add to previous draw Performed By: #### 5 7307 #### [facility] [address] [place] [address], [place] METHB 1 % Normal [facility] Comment on above: Order Comment: No: D o not add to previous draw Performed By: #### 5 7307 #### [facility] [address] [place] [address], [place] Oxygen saturation in Blood 66.9 % Normal 65.0-75.0 [facility] Comment on above: Order Comment: No: D o not add to previous draw Performed By: #### 5 7307 #### [facility] [address] [place] [address], [place] THB 13.1 g/dL Normal [facility] Comment on above: Order Comment: No: D o not add to previous draw Performed By: #### 5 7307 #### [facility] [address] [place] [address], [place] COHB 2 % Normal [facility] Comment on above: Performed By: #### 7 0207 ####[facility] [place] [address], [place] METHB 1 % Normal [facility] Comment on above: Performed By: #### 7 0207 ####[facility] [facility] [place] [address], [facility] Oxygen saturation in Blood 59.2 % Low 65.0-75.0 [facility] Comment on above: Performed By: #### 7 0207 ####[facility] [place] [address], [facility] THB 14.0 g/dL Normal [facility] Comment on above: Performed By: #### 7 0207 ####[facility] [facility] [place] [place] [address], [facility] LACTATE BLOODon 03-19-2019 Lactate [Moles/Vol] 2.6 mmol/L Critically high 0.5-2.2 [facility] Comment on above: Order Comment: No: D o not add to previous draw Result Comment: M-CR ITICAL RESULT(S) REVIEWED, CALLED TO AND READ BACK BY PEDRO MONTANO @213 03.19.19 Performed By: #### 5 7307 #### [facility] [address] [place] [address], [facility] MAGNESIUM BLOODon 03-19-2019 Magnesium [Mass/Vol] 2.4 mg/dL Normal 1.9-2.7 [facility] Comment on above: Order Comment: No: D o not add to previous draw Performed By: #### 5 7307 #### [facility] [address] [place] [address], [facility] Magnesium [Mass/Vol] 2.7 mg/dL Normal 1.9-2.7 [facility] Comment on above: Order Comment: R/O P ulmonary Edema Performed By: #### 0 0121, 14491, 43994 ####[facility] [place] [address], [facility] Magnesium [Mass/Vol] 2.9 mg/dL High 1.9-2.7 [facility] Comment on above: Performed By: #### 8 5123, 98365 #### [facility] [address] [place] [address], [place] PERFUSION BLOOD PANELon 2 BASE EXCESS -4.0 mmol/L Low -2.0-3.0 [facility] Comment on above: Performed By: #### 8 5123, 19805 #### [facility] [address] [place] [address], [place] Glucose [Mass/Vol] 143 mg/dL High 70-105 [facility] Comment on above: Performed By: #### 8 5123, 41634 #### [facility] [address] [place] [address], [place] Hematocrit (Bld) [Volume fraction] 39 % Normal 38-51 [facility] Comment on above: Performed By: #### 8 5123, 31015 #### [facility] [address] [place] [address], [place] Hemoglobin (Bld) [Mass/Vol] 13.3 g/dL Normal 12.0-17.0 [facility] Comment on above: Performed By: #### 8 5123, 05693 #### [facility] [address] [place] [address], [place] IONIZED CALCIUM 1.58 mmol/L Critically high 1.12-1.32 [facility] Comment on above: Performed By: #### 8 5123, 10789 #### [facility] [address] [place] [address], [place] Oxygen (Bld) [Partial pressure] 59.0 mm[Hg] Low 80.0-105.0 [facility] Comment on above: Performed By: #### 8 5123, 99945 #### [facility] [address] [place] [address], [place] PCO2 35.4 mmHg Normal 35.0-45.0 [facility] Comment on above: Performed By: #### 8 5123, 94264 #### [facility] [address] [place] [address], [place] pH (Bld) 7.37 [pH] Normal 7.35-7.45 [facility] Comment on above: Performed By: #### 8 5123, 41396 #### [facility] [address] [place] [address], [place] Potassium [Moles/Vol] 3.7 mmol/L Normal 3.5-4.9 [facility] Comment on above: Performed By: #### 8 5123, 50869 #### [facility] [address] [place] [address], [place] Sodium [Moles/Vol] 144 mmol/L Normal 138-146 [facility] Comment on above: Performed By: #### 8 5123, 68724 #### [facility] [address] [place] [address], [place] BASE EXCESS -5.0 mmol/L Low -2.0-3.0 [facility] Comment on above: Performed By: #### 8 5123, 46865 #### [facility] [address] [place] [address], [place] Glucose [Mass/Vol] 158 mg/dL High 70-105 [facility] Comment on above: Performed By: #### 8 5123, 09002 #### [facility] [address] [place] [address], [place] Hematocrit (Bld) [Volume fraction] 41 % Normal 38-51 [facility] Comment on above: Performed By: #### 8 5123, 55438 #### [facility] [address] [place] [address], [place] Hemoglobin (Bld) [Mass/Vol] 13.9 g/dL Normal 12.0-17.0 [facility] Comment on above: Performed By: #### 8 5123, 59280 #### [facility] [address] [place] [place] [address], [place] IONIZED CALCIUM 1.34 mmol/L High 1.12-1.32 [facility] Comment on above: Performed By: #### 8 5123, 62075 #### [facility] [address] [place] [address], [place] Oxygen (Bld) [Partial pressure] 51.0 mm[Hg] Low 80.0-105.0 [facility] Comment on above: Performed By: #### 8 5123, 75822 #### [facility] [address] [place] [address], [place] PCO2 34.5 mmHg Low 35.0-45.0 [facility] Comment on above: Performed By: #### 8 5123, 80768 #### [facility] [address] [place] [address], [place] pH (Bld) 7.36 [pH] Normal 7.35-7.45 [facility] Comment on above: Performed By: #### 8 5123, 30760 #### [facility] [address] [place] [address], [place] Potassium [Moles/Vol] 4.2 mmol/L Normal 3.5-4.9 [facility] Comment on above: Performed By: #### 8 5123, 21611 #### [facility] [address] [place] [address], [place] Sodium [Moles/Vol] 142 mmol/L Normal 138-146 [facility] Comment on above: Performed By: #### 8 5123, 09187 #### [facility] [address] [place] [address], [place] BASE EXCESS -1.0 mmol/L Normal -2.0-3.0 [facility] Comment on above: Performed By: #### 8 5123, 12588 #### [facility] [address] [place] [address], [place] Glucose [Mass/Vol] 163 mg/dL High 70-105 [facility] Comment on above: Performed By: #### 8 5123, 70314 #### [facility] [address] [place] [address], [place] Hematocrit (Bld) [Volume fraction] 42 % Normal 38-51 [facility] Comment on above: Performed By: #### 8 5123, 91947 #### [facility] [address] [place] [address], [place] Hemoglobin (Bld) [Mass/Vol] 14.3 g/dL Normal 12.0-17.0 [facility] Comment on above: Performed By: #### 8 5123, 70383 #### [facility] [address] [place] [address], [place] IONIZED CALCIUM 1.05 mmol/L Low 1.12-1.32 [facility] Comment on above: Performed By: #### 8 5123, 98205 #### [facility] [address] [place] [address], [place] Oxygen (Bld) [Partial pressure] 368.0 mm[Hg] High 80.0-105.0 [facility] Comment on above: Performed By: #### 8 5123, 98821 #### [facility] [address] [place] [address], [place] PCO2 39.7 mmHg Normal 35.0-45.0 [facility] Comment on above: Performed By: #### 8 5123, 80223 #### [facility] [address] [place] [address], [place] pH (Bld) 7.39 [pH] Normal 7.35-7.45 [facility] Comment on above: Performed By: #### 8 5123, 83247 #### [facility] [address] [place] [address], [place] Potassium [Moles/Vol] 3.9 mmol/L Normal 3.5-4.9 [facility] Comment on above: Performed By: #### 8 5123, 39390 #### [facility] [address] [place] [address], [place] Sodium [Moles/Vol] 145 mmol/L Normal 138-146 [facility] Comment on above: Performed By: #### 8 5123, 29369 #### [facility] [address] [place] [address], [place] BASE EXCESS -4.0 mmol/L Low -2.0-3.0 [facility] Comment on above: Performed By: #### 8 5123, 25692 #### [facility] [address] [place] [address], [place] Glucose [Mass/Vol] 169 mg/dL High 70-105 [facility] Comment on above: Performed By: #### 8 5123, 72503 #### [facility] [address] [place] [address], [place] Hematocrit (Bld) [Volume fraction] 40 % Normal 38-51 [facility] Comment on above: Performed By: #### 8 5123, 67897 #### [facility] [address] [place] [address], [place] Hemoglobin (Bld) [Mass/Vol] 13.6 g/dL Normal 12.0-17.0 [facility] Comment on above: Performed By: #### 8 5123, 05039 #### [facility] [address] [place] [address], [place] IONIZED CALCIUM 1.37 mmol/L High 1.12-1.32 [facility] Comment on above: Performed By: #### 8 5123, 00345 #### [facility] [address] [place] [address], [place] Oxygen (Bld) [Partial pressure] 301.0 mm[Hg] High 80.0-105.0 [facility] Comment on above: Performed By: #### 8 5123, 56933 #### [facility] [address] [place] [address], [place] PCO2 36.1 mmHg Normal 35.0-45.0 [facility] Comment on above: Performed By: #### 8 5123, 90790 #### [facility] [address] [place] [address], [facility] pH (Bld) 7.38 [pH] Normal 7.35-7.45 [facility] Comment on above: Performed By: #### 8 5123, 94517 #### [facility] [address] [place] [address], [place] Potassium [Moles/Vol] 4.9 mmol/L Normal 3.5-4.9 [facility] Comment on above: Performed By: #### 8 5123, 05697 #### [facility] [address] [place] [address], [place] Sodium [Moles/Vol] 137 mmol/L Low 138-146 [facility] Comment on above: Performed By: #### 8 5123, 26128 #### [facility] [address] [place] [address], [place] BASE EXCESS -3.0 mmol/L Low -2.0-3.0 [facility] Comment on above: Performed By: #### 8 5123, 21273 #### [facility] [address] [place] [address], [place] Glucose [Mass/Vol] 174 mg/dL High 70-105 [facility] Comment on above: Performed By: #### 8 5123, 84742 #### [facility] [address] [place] [address], [place] Hematocrit (Bld) [Volume fraction] 45 % Normal 38-51 [facility] Comment on above: Performed By: #### 8 5123, 10793 #### [facility] [address] [place] [address], [place] Hemoglobin (Bld) [Mass/Vol] 15.3 g/dL Normal 12.0-17.0 [facility] Comment on above: Performed By: #### 8 5123, 25910 #### [facility] [address] [place] [address], [place] IONIZED CALCIUM 1.06 mmol/L Low 1.12-1.32 [facility] Comment on above: Performed By: #### 8 5123, 01412 #### [facility] [address] [place] [address], [place] Oxygen (Bld) [Partial pressure] 404.0 mm[Hg] High 80.0-105.0 [facility] Comment on above: Performed By: #### 8 5123, 41240 #### [facility] [address] [place] [address], [place] PCO2 42.4 mmHg Normal 35.0-45.0 [facility] Comment on above: Performed By: #### 8 5123, 33688 #### [facility] [address] [place] [address], [place] pH (Bld) 7.35 [pH] Normal 7.35-7.45 [facility] Comment on above: Performed By: #### 8 5123, 06076 #### [facility] [address] [place] [address], [facility] Potassium [Moles/Vol] 4.7 mmol/L Normal 3.5-4.9 [facility] Comment on above: Performed By: #### 8 5123, 27564 #### [facility] [address] [place] [address], [place] Sodium [Moles/Vol] 141 mmol/L Normal 138-146 [facility] Comment on above: Performed By: #### 8 5123, 19511 #### [facility] [address] [place] [address], [place] BASE EXCESS -2.0 mmol/L Normal -2.0-3.0 [facility] Comment on above: Performed By: #### 8 5123, 15584 #### [facility] [address] [place] [address], [facility] Glucose [Mass/Vol] 184 mg/dL High 70-105 [facility] Comment on above: Performed By: #### 8 5123, 45383 #### [facility] [address] [place] [address], [facility] Hematocrit (Bld) [Volume fraction] 46 % Normal 38-51 [facility] Comment on above: Performed By: #### 8 5123, 91366 #### [facility] [address] [place] [address], [facility] Hemoglobin (Bld) [Mass/Vol] 15.6 g/dL Normal 12.0-17.0 [facility] Comment on above: Performed By: #### 8 5123, 38841 #### [facility] [address] [place] [address], [place] IONIZED CALCIUM 1.06 mmol/L Low 1.12-1.32 [facility] Comment on above: Performed By: #### 8 5123, 64945 #### [facility] [address] [place] [address], [facility] Oxygen (Bld) [Partial pressure] 374.0 mm[Hg] High 80.0-105.0 [facility] Comment on above: Performed By: #### 8 5123, 03104 #### [facility] [address] [place] [address], [place] PCO2 43.3 mmHg Normal 35.0-45.0 [facility] Comment on above: Performed By: #### 8 5123, 46136 #### [facility] [address] [place] [address], [place] pH (Bld) 7.34 [pH] Low 7.35-7.45 [facility] Comment on above: Performed By: #### 8 5123, 81801 #### [facility] [address] [place] [address], [place] Potassium [Moles/Vol] 4.8 mmol/L Normal 3.5-4.9 [facility] Comment on above: Performed By: #### 8 5123, 77962 #### [facility] [address] [place] [address], [facility] Sodium [Moles/Vol] 139 mmol/L Normal 138-146 [facility] Comment on above: Performed By: #### 8 5123, 58287 #### [facility] [address] [place] [address], [place] BASE EXCESS -2.0 mmol/L Normal -2.0-3.0 [facility] Comment on above: Performed By: #### 8 5123, 34352 #### [facility] [address] [place] [address], [place] Glucose [Mass/Vol] 176 mg/dL High 70-105 [facility] Comment on above: Performed By: #### 8 5123, 12031 #### [facility] [address] [place] [address], [facility] Hematocrit (Bld) [Volume fraction] 44 % Normal 38-51 [facility] Comment on above: Performed By: #### 8 5123, 61811 #### [facility] [address] [place] [address], [facility] Hemoglobin (Bld) [Mass/Vol] 15.0 g/dL Normal 12.0-17.0 [facility] Comment on above: Performed By: #### 8 5123, 39826 #### [facility] [address] [place] [address], [facility] IONIZED CALCIUM 1.07 mmol/L Low 1.12-1.32 [facility] Comment on above: Performed By: #### 8 512, 09881 #### [facility] [address] [place] [address], [facility] Oxygen (Bld) [Partial pressure] 284.0 mm[Hg] High 80.0-105.0 [facility] Comment on above: Performed By: #### 8 5123, 40881 #### [facility] [address] [place] [address], [facility] PCO2 47.5 mmHg High 35.0-45.0 [facility] Comment on above: Performed By: #### 8 5123, 81782 #### [facility] [address] [place] [id number], [facility] pH (Bld) 7.32 [pH] Low 7.35-7.45 [facility] Comment on above: Performed By: #### 8 5123, 15816 #### [facility] [address] [place] [address], [facility] Potassium [Moles/Vol] 4.8 mmol/L Normal 3.5-4.9 [facility] Comment on above: Performed By: #### 8 5123, 73101 #### [facility] [address] [place] [address], [place] Sodium [Moles/Vol] 139 mmol/L Normal 138-146 [facility] Comment on above: Performed By: #### 8 5123, 68048 #### [facility] [address] [place] [address], [place] BASE EXCESS -2.0 mmol/L Normal -2.0-3.0 [facility] Comment on above: Performed By: #### 0 0121, 61983, 17339, 46805, 45754 #### [facility] [address] [place] [address], [place] Glucose [Mass/Vol] 166 mg/dL High 70-105 [facility] Comment on above: Performed By: #### 0 0121, 26047, 63431, 40529, 01907 #### [facility] [address] [place] [address], [place] Hematocrit (Bld) [Volume fraction] 45 % Normal 38-51 [facility] Comment on above: Performed By: #### 0 0121, 63684, 62704, 28648, 60000 #### [facility] [address] [place] [address], [place] Hemoglobin (Bld) [Mass/Vol] 15.3 g/dL Normal 12.0-17.0 [facility] Comment on above: Performed By: #### 0 0121, 59644, 34251, 88816, 07367 #### [facility] [address] [place] [address], [place] IONIZED CALCIUM 1.09 mmol/L Low 1.12-1.32 [facility] Comment on above: Performed By: #### 0 0121, 54840, 08848, 92579, 68038 #### [facility] [address] [place] [address], [place] Oxygen (Bld) [Partial pressure] 313.0 mm[Hg] High 80.0-105.0 [facility] Comment on above: Performed By: #### 0 0121, 97020, 83557, 16743, 33312 #### [facility] [address] [place] [address], [place] PCO2 47.7 mmHg High 35.0-45.0 [facility] Comment on above: Performed By: #### 0 0121, 43866, 60055, 38486, 26600 #### [facility] [address] [place] [address], [place] pH (Bld) 7.32 [pH] Low 7.35-7.45 [facility] Comment on above: Performed By: #### 0 0121, 02281, 04523, 36573, 56734 #### [facility] [address] [place] [address], [place] Potassium [Moles/Vol] 4.4 mmol/L Normal 3.5-4.9 [facility] Comment on above: Performed By: #### 0 0121, 97819, 21890, 84081, 68606 #### [facility] [address] [place] [address], [place] Sodium [Moles/Vol] 140 mmol/L Normal 138-146 [facility] Comment on above: Performed By: #### 0 0121, 32744, 51234, 91934, 35325 #### [facility] [address] [place] [address], [place] BASE EXCESS -1.0 mmol/L Normal -2.0-3.0 [facility] Comment on above: Performed By: #### 0 0121, 91984, 47583, 45044, 07974 #### [facility] [address] [place] [address], [place] Glucose [Mass/Vol] 146 mg/dL High 70-105 [facility] [place] [facility] Comment on above: Performed By: #### 0 0121, 57539, 41843, 71481, 12912 #### [facility] [address] [place] [address], [facility] Hematocrit (Bld) [Volume fraction] 45 % Normal 38-51 [facility] Comment on above: Performed By: #### 0 0121, 49889, 67735, 20681, 59677 #### [facility] [address] [place] [address], [facility] Hemoglobin (Bld) [Mass/Vol] 15.3 g/dL Normal 12.0-17.0 [facility] Comment on above: Performed By: #### 0 0121, 44016, 54742, 13826, 88399 #### [facility] [address] [place] [address], [place] IONIZED CALCIUM 1.06 mmol/L Low 1.12-1.32 [facility] Comment on above: Performed By: #### 0 0121, 50130, 96064, 05205, 30398 #### [facility] [address] [place] [address], [facility] Oxygen (Bld) [Partial pressure] 319.0 mm[Hg] High 80.0-105.0 [facility] Comment on above: Performed By: #### 0 0121, 90536, 88754, 85793, 76632 #### [facility] [address] [place] [address], [place] PCO2 50.9 mmHg High 35.0-45.0 [facility] Comment on above: Performed By: #### 0 0121, 15868, 02856, 41471, 65846 #### [facility] [address] [place] [address], [place] pH (Bld) 7.32 [pH] Low 7.35-7.45 [facility] Comment on above: Performed By: #### 0 0121, 60509, 46680, 45993, 49222 #### [facility] [address] [place] [address], [place] Potassium [Moles/Vol] 4.4 mmol/L Normal 3.5-4.9 [facility] Comment on above: Performed By: #### 0 0121, 76486, 54971, 36788, 48811 #### [facility] [address] [place] [address], [place] Sodium [Moles/Vol] 138 mmol/L Normal 138-146 [facility] Comment on above: Performed By: #### 0 0121, 10705, 58557, 03012, 25012 #### [facility] [address] [place] [address], [place] BASE EXCESS 0.0 mmol/L Normal -2.0-3.0 [facility] Comment on above: Performed By: #### 0 0121, 49505, 90371, 30375, 18016 #### [facility] [address] [place] [address], [place] Glucose [Mass/Vol] 116 mg/dL High 70-105 [facility] Comment on above: Performed By: #### 0 0121, 75653, 02721, 54844, 58648 #### [facility] [address] [place] [address], [place] Hematocrit (Bld) [Volume fraction] 43 % Normal 38-51 [facility] Comment on above: Performed By: #### 0 0121, 78974, 51202, 51411, 89354 #### [facility] [address] [place] [address], [place] Hemoglobin (Bld) [Mass/Vol] 14.6 g/dL Normal 12.0-17.0 [facility] Comment on above: Performed By: #### 0 0121, 94876, 23058, 76826, 25860 #### [facility] [address] [place] [address], [place] IONIZED CALCIUM 1.05 mmol/L Low 1.12-1.32 [facility] Comment on above: Performed By: #### 0 0121, 57840, 14306, 33399, 08351 #### [facility] [address] [place] [address], [place] Oxygen (Bld) [Partial pressure] 409.0 mm[Hg] High 80.0-105.0 [facility] Comment on above: Performed By: #### 0 0121, 63883, 56663, 17141, 78844 #### [facility] [address] [place] [address], [place] PCO2 44.9 mmHg Normal 35.0-45.0 [facility] Comment on above: Performed By: #### 0 0121, 39459, 36580, 46009, 90750 #### [facility] [address] [place] [address], [place] pH (Bld) 7.36 [pH] Normal 7.35-7.45 [facility] Comment on above: Performed By: #### 0 0121, 21871, 84985, 11159, 62288 #### [facility] [address] [place] [address], [place] Potassium [Moles/Vol] 4.5 mmol/L Normal 3.5-4.9 [facility] Comment on above: Performed By: #### 0 0121, 47390, 95493, 58636, 08856 #### [facility] [address] [place] [address], [place] Sodium [Moles/Vol] 138 mmol/L Normal 138-146 [facility] Comment on above: Performed By: #### 0 0121, 21210, 62303, 82802, 36589 #### [facility] [address] [place] [address], [facility] BASE EXCESS 0.0 mmol/L Normal -2.0-3.0 [facility] Comment on above: Performed By: #### 0 0121, 69601, 91308, 59184, 86769 #### [facility] [address] [place] [address], [place] Glucose [Mass/Vol] 101 mg/dL Normal 70-105 [facility] Comment on above: Performed By: #### 0 0121, 46385, 54492, 95713, 00118 #### [facility] [address] [place] [address], [facility] Hematocrit (Bld) [Volume fraction] 44 % Normal 38-51 [facility] Comment on above: Performed By: #### 0 0121, 25814, 57046, 07442, 18445 #### [facility] [address] [place] [address], [place] Hemoglobin (Bld) [Mass/Vol] 15.0 g/dL Normal 12.0-17.0 [facility] Comment on above: Performed By: #### 0 0121, 56579, 15650, 61208, 02398 #### [facility] [address] [place] [address], [place] IONIZED CALCIUM 1.02 mmol/L Low 1.12-1.32 [facility] Comment on above: Performed By: #### 0 0121, 08265, 89059, 39205, 65034 #### [facility] [address] [place] [address], [place] Oxygen (Bld) [Partial pressure] 516.0 mm[Hg] High 80.0-105.0 [facility] Comment on above: Performed By: #### 0 0121, 72806, 55065, 34314, 49238 #### [facility] [address] [place] [address], [place] PCO2 50.7 mmHg High 35.0-45.0 [facility] Comment on above: Performed By: #### 0 0121, 41188, 54208, 46506, 64578 #### [facility] [address] [place] [address], [place] pH (Bld) 7.33 [pH] Low 7.35-7.45 [facility] Comment on above: Performed By: #### 0 0121, 60033, 11321, 40393, 50768 #### [facility] [address] [place] [address], [place] Potassium [Moles/Vol] 4.1 mmol/L Normal 3.5-4.9 [facility] Comment on above: Performed By: #### 0 0121, 94631, 44380, 91301, 07649 #### [facility] [address] [place] [address], [place] Sodium [Moles/Vol] 137 mmol/L Low 138-146 [facility] Comment on above: Performed By: #### 0 0121, 34880, 90362, 28771, 09408 #### [facility] [address] [place] [address], [place] Hematocrit (Bld) [Volume fraction] 43 % Normal 38-51 [facility] Comment on above: Performed By: #### 0 0121, 16598, 16732, 34971, 36181 #### [facility] [address] [place] [address], [place] Hemoglobin (Bld) [Mass/Vol] 14.6 g/dL Normal 12.0-17.0 [facility] Comment on above: Performed By: #### 0 0121, 34158, 70281, 71112, 73874 #### [facility] [address] [place] [address], [place] Oxygen (Bld) [Partial pressure] 51.0 mm[Hg] Normal [facility] Comment on above: Performed By: #### 0 0121, 03576, 79734, 93428, 93843 #### [facility] [address] [place] [address], [place] BASE EXCESS -4.0 mmol/L Low -2.0-3.0 [facility] Comment on above: Performed By: #### 0 0121, 28896, 00730, 62841, 62289 #### [facility] [address] [place] [address], [place] Glucose [Mass/Vol] 104 mg/dL Normal 70-105 [facility] Comment on above: Performed By: #### 0 0121, 85124, 00323, 89738, 24871 #### [facility] [address] [address], [place] Hematocrit (Bld) [Volume fraction] 55 % High 38-51 [facility] Comment on above: Performed By: #### 0 0121, 35845, 42645, 81381, 50926 #### [facility] [address] [place] [address], [place] Hemoglobin (Bld) [Mass/Vol] 18.7 g/dL High 12.0-17.0 [facility] Comment on above: Performed By: #### 0 0121, 65307, 19854, 99034, 94581 #### [facility] [address] [place] [address], [place] IONIZED CALCIUM 1.24 mmol/L Normal 1.12-1.32 [facility] Comment on above: Performed By: #### 0 0121, 80087, 62770, 99657, 59115 #### [facility] [address] [place] [address], [place] Oxygen (Bld) [Partial pressure] 159.0 mm[Hg] High 80.0-105.0 [facility] Comment on above: Performed By: #### 0 0121, 49349, 37380, 04625, 08784 #### [facility] [address] [place] [address], [facility] PCO2 48.7 mmHg High 35.0-45.0 [facility] Comment on above: Performed By: #### 0 0121, 05088, 56741, 37330, 33295 #### [facility] [address] [place] [address], [place] pH (Bld) 7.30 [pH] Low 7.35-7.45 [facility] Comment on above: Performed By: #### 0 0121, 40742, 05563, 97986, 82415 #### [facility] [address] [place] [address], [place] Potassium [Moles/Vol] 4.1 mmol/L Normal 3.5-4.9 [facility] Comment on above: Performed By: #### 0 0121, 09473, 24411, 37639, 97691 #### [facility] [address] [place] [address], [place] Sodium [Moles/Vol] 139 mmol/L Normal 138-146 [facility] Comment on above: Performed By: #### 0 0121, 60401, 86455, 60996, 66920 #### [facility] [address] [place] [address], [place] PHOSPHORUS BLOODon 9 Phosphate [Mass/Vol] 4.3 mg/dL Normal 2.5-5.0 [facility] Comment on above: Order Comment: R/O P ulmonary Edema Performed By: #### 0 0121, 71902, [id number] ####[facility] [place] [address], [facility] POC GLUCOSE LABon 03-19-2019 Glucose [Mass/Vol] 115 mg/dL High 70-100 [facility] Comment on above: Performed By: #### 5 [id number] #### [facility] [address] [facility] [place] [address], [facility] Glucose [Mass/Vol] 145 mg/dL High 70-100 [facility] Comment on above: Performed By: #### 5 [id number] #### [facility] [address] [facility] [place] [address], [facility] Glucose [Mass/Vol] 121 mg/dL High 70-100 [facility] Comment on above: Performed By: #### 8 5499 ####[facility] [place] [address], [facility] Glucose [Mass/Vol] 122 mg/dL High 70-100 [facility] Comment on above: Performed By: #### 8 5499 ####[facility] [place] [address], [facility] PORTABLE CHEST 1 VIEW 03-01 PORTABLE CHEST 1 VIEW [facility] Department of Radiology [address] [place] [id number] ======== Patient Name: TRACIE CRAIN : 1965 Sex: M Age: Race: NA Pt. Location: [id number] Patient Status: I Ordered Date: 03/19/2019 5:50:00 [...] the upper thoracic trachea in satisfactory position. Ben Wheeler-Sher catheter, chest tubes and enteric tube appear [...] findings. Electronically signed by:Yenni Osuna. Transcribed by: [email or web address], User Resident: EMILIA SHERMAN Electronically Signed by: YENNI OSUNA @ 03/20/2019 05:05 PM I personally read this/these film(s) with this resident Normal [facility] Comment on above: Order Comment: << On admission If not done in ED>> No: Do not add to previous draw PORTABLE CHEST 1 VIEW [facility] Department of Radiology [address] [place] [id number] ======== Patient Name: TRACIE CRAIN : 1965 Sex: M Age: Race: NA Pt. Location: [id number] Patient Status: I Ordered Date: 03/19/2019 4:45:00 [...] right-sided chest tubes appear in satisfactory position. Ben Wheeler-Sher catheter with tip projecting over the pulmonary [...] findings. Electronically signed by:Divya Collins. Transcribed by: [email or web address], User Resident: ANAI ALVARADO Electronically Signed by: DIVYA COLLINS @ 03/20/2019 11:00 AM I personally read this/these film(s) with this resident Normal [facility] Comment on above: Order Comment: << On admission If not done in ED>> No: Do not add to previous draw PORTABLE CHEST 1 VIEW [facility] Department of Radiology [address] [place] [address] ======== Patient Name: TRACIE CRAIN : 1965 Sex: M Age: Race: NA Pt. Location: [id number] Patient Status: I Ordered Date: 03/19/2019 3:55:00 [...] tubes are in place. No appreciable pneumothorax. Ben Wheeler-Sher catheter in place likely terminating in the [...] disease most likely representing multifocal atelectasis. * Ben Wheeler-Sher catheter likely terminating in the proximal right main pulmonary artery. * Trace pleural fluid bilaterally. Approved by:Pierce Sherman on 03/19/2019 5:04 PM EDT. I, Yenni Osuna, have reviewed the images and report and concur with these findings. Electronically signed by:Yenni Osuna. Transcribed by: [email or web address], User Resident: EMILIA SHERMAN Electronically Signed by: YENNI OSUNA @ 03/20/2019 05:04 PM I personally read this/these film(s) with this resident Normal [facility] Comment on above: Order Comment: << On admission If not done in ED>> No: Do not add to previous draw PROTHROMBIN TIMEon 9 INR Coag (PPP) [Relative time] 1.60 {INR} High 0.91-1.16 [facility] Comment on above: Order Comment: R/O [...] CHEST 1995;108:231S-246S. Performed By: #### 5 6101 ####[facility] [place] [address], [place] PT Coag (PPP) [Time] 19.1 s High 12.3-14.8 [facility] Comment on above: Order Comment: R/O P ulmonary Edema Result Comment: ALL RESULTS MUST BE INTERPRETED WITH RESPECT TO BLOOD DRAWING ARTIFACT OR DILUTION ERROR OF ANTICOAGULANT AT THE TIME OF SAMPLING. Performed By: #### 5 6101 ####[facility] [facility] [place] [address], [facility] INR Coag (PPP) [Relative time] 1.68 {INR} High 0.91-1.16 [facility] Comment on above: Order Comment: If [...] CHEST 1995;108:231S-246S. Performed By: #### 8 5123, 96617 #### [facility] [address] [place] [address], [facility] PT Coag (PPP) [Time] 19.9 s High 12.3-14.8 [facility] Comment on above: Order Comment: If no t done in ED No: Do not add to previous draw Result Comment: ALL RESULTS MUST BE INTERPRETED WITH RESPECT TO BLOOD DRAWING ARTIFACT OR DILUTION ERROR OF ANTICOAGULANT AT THE TIME OF SAMPLING. Performed By: #### 8 5123, 41642 #### [facility] [address] [place] [address], [facility] INR Coag (PPP) [Relative time] 1.02 {INR} Normal 0.91-1.16 [facility] Comment on above: Order Comment: If [...] CHEST 1995;108:231S-246S. Performed By: #### 0 0121, 17167, 69080, 01754, 22656 #### [facility] [address] [place] [address], [facility] PT Coag (PPP) [Time] 13.4 s Normal 12.3-14.8 [facility] Comment on above: Order Comment: If no t done in ED No: Do not add to previous draw Result Comment: ALL RESULTS MUST BE INTERPRETED WITH RESPECT TO BLOOD DRAWING ARTIFACT OR DILUTION ERROR OF ANTICOAGULANT AT THE TIME OF SAMPLING. Performed By: #### 0 0121, 59965, 97567, 58268, 56372 #### [facility] [address] [place] [address], [facility] RBC'S 2 UNITSon 03-19-2019 CROSSMATCH INTERP 1 COMP Normal [facility] Comment on above: Performed By: #### 0 0121, 37734, 46976, 67064, 48830 #### [facility] [address] [place] [address], [place] CROSSMATCH INTERP 2 COMP Normal [facility] Comment on above: Performed By: #### 0 0121, 28873, 76613, 06358, 57005 #### [facility] [address] [place] [address], [facility] PRODUCT CODE 1 E0332 Normal [facility] Comment on above: Performed By: #### 0 0121, 42715, 91529, 88703, 16690 #### [facility] [address] [place] [address], [facility] PRODUCT CODE 2 E0336 Normal [facility] Comment on above: Performed By: #### 0 0121, 11031, 12324, 90628, 92897 #### [facility] [address] [place] [address], [facility] PRODUCT STATUS 1 RE Normal [facility] Comment on above: Result Comment: Resu lt changed by IF on 03/19/2019 08:33. The previous value was XM. Result changed by IF on 03/19/2019 16:19. The previous value was IS. Result changed by IF on 03/20/2019 09:43. The previous value was XM. Result changed by IF on 03/20/2019 09:46. The previous value was XX. Performed By: #### 0 0121, 63408, 74036, 84718, 30173 #### [facility] [address] [place] [address], [facility] PRODUCT STATUS 2 RE Normal [facility] Comment on above: Result Comment: Resu lt changed by IF on 03/19/2019 08:33. The previous value was XM. Result changed by IF on 03/19/2019 16:19. The previous value was IS. Result changed by IF on 03/20/2019 09:43. The previous value was XM. Result changed by IF on 03/20/2019 11:11. The previous value was XX. Performed By: #### 0 0121, 02758, 58863, 99904, 64837 #### [facility] [address] [place] [address], [facility] UNIT ABO 1 O Normal [facility] Comment on above: Performed By: #### 0 0121, 85017, 12503, 16332, 96079 #### [facility] [address] [place] [address], [facility] UNIT ABO 2 O Normal [facility] Comment on above: Performed By: #### 0 0121, 65666, 87834, 24704, 08373 #### [facility] [address] [place] [address], [facility] UNIT ID 1 [id number] Normal [facility] Comment on above: Performed By: #### 0 0121, 98702, 55762, 69989, 19510 #### [facility] [address] [place] [address], [facility] UNIT ID 2 [id number] Normal [facility] Comment on above: Performed By: #### 0 0121, 25976, 29831, 01765, 89523 #### [facility] [address] [place] [address], [place] UNIT RH 1 Negative Normal [facility] Comment on above: Performed By: #### 0 0121, 11782, 31800, 20403, 37124 #### [facility] [address] [place] [address], [place] UNIT RH 2 Negative Normal [facility] Comment on above: Performed By: #### 0 0121, 53054, 34751, 69786, 21391 #### [facility] [address] *MRSA/MSSA DNA NASALon 03-18 *MRSA/MSSA DNA NASAL Clinical Report: (D ) Specimen: NASAL SWAB Collected: 03/18/2019 17:05 Status: Final Last Updated: 03/19/2019 12:12 MSSA DNA (Final) Negative MRSA DNA (Final) Negative Normal [facility] Comment on above: Performed By: #### 8 5123, 75075 #### [facility] [address] APTTon 03-18-2019 aPTT Coag (Bld) [Time] 58.1 s High 25.0-35.0 [facility] Comment on above: Order Comment: << [...] OF HEPARIN. Performed By: #### 0 0121, 13885, 59711, 28908, 83598 #### [facility] [address] aPTT Coag (Bld) [Time] 67.7 s High 25.0-35.0 [facility] Comment on above: Order Comment: << [...] OF HEPARIN. Performed By: #### 0 0121, 94939, 72457, 73535, 90293 #### [facility] [address] [place] [address], [facility] aPTT Coag (Bld) [Time] 74.8 s Critically high 25.0-35.0 [facility] Comment on above: Order Comment: << [...] AT 0609. Performed By: #### 0 0121, 87649, 00370, 14324, 15076 #### [facility] [address] BASIC METABOLIC PANELon 02-28 Calcium [Mass/Vol] 9.2 mg/dL Normal 8.6-10.3 [facility] Comment on above: Order Comment: << ON ADMISSION If not done in ED>> No: Do not add to previous draw Performed By: #### 0 0121, 33070, 42431, 85895, 71707 #### [facility] [address] [place] [address], [facility] Chloride [Moles/Vol] 105 mmol/L Normal 98-107 [facility] Comment on above: Order Comment: << ON ADMISSION If not done in ED>> No: Do not add to previous draw Performed By: #### 0 0121, 35814, 32873, 88164, 17445 #### [facility] [address] [place] [address], [place] CO2 [Moles/Vol] 27 mmol/L Normal 21-31 [facility] Comment on above: Order Comment: << ON ADMISSION If not done in ED>> No: Do not add to previous draw Performed By: #### 0 0121, 31119, 71124, 99236, 60092 #### [facility] [address] [place] [address], [place] Creatinine [Mass/Vol] 1.11 mg/dL Normal 0.70-1.30 [facility] Comment on above: Order Comment: << ON ADMISSION If not done in ED>> No: Do not add to previous draw Performed By: #### 0 0121, 57242, 79222, 21415, 88857 #### [facility] [address] [place] [address], [facility] GFR/1.73 sq M predicted among blacks MDRD (S/P/Bld) [Vol rate/Area] mL/min/{1.73_m2} Normal >60 [facility] Comment on above: Order Comment: << ON ADMISSION If not done in ED>> No: Do not add to previous draw Performed By: #### 0 0121, 59281, 61060, 86959, 70344 #### [facility] [address] [place] [address], [place] GFR/1.73 sq M predicted among non-blacks MDRD (S/P/Bld) [Vol rate/Area] mL/min/{1.73_m2} Normal >60 [facility] Comment on above: Order Comment: << ON ADMISSION If not done in ED>> No: Do not add to previous draw Performed By: #### 0 0121, 63857, 76973, 67260, 05151 #### [facility] [address] [place] [address], [place] Glucose [Mass/Vol] 101 mg/dL High 70-100 [facility] Comment on above: Order Comment: << ON ADMISSION If not done in ED>> No: Do not add to previous draw Performed By: #### 0 0121, 16846, 72851, 17972, 48334 #### [facility] [address] [place] [address], [facility] Potassium [Moles/Vol] 4.2 mmol/L Normal 3.5-5.1 [facility] Comment on above: Order Comment: << ON ADMISSION If not done in ED>> No: Do not add to previous draw Performed By: #### 0 0121, 81910, 88963, 35757, 60777 #### [facility] [address] [place] [address], [facility] Sodium [Moles/Vol] 136 mmol/L Normal 136-145 [facility] Comment on above: Order Comment: << ON ADMISSION If not done in ED>> No: Do not add to previous draw Performed By: #### 0 0121, 75620, 89596, 47634, 19531 #### [facility] [address] [place] [address], [facility] Urea nitrogen [Mass/Vol] 15 mg/dL Normal 7-25 [facility] Comment on above: Order Comment: << ON ADMISSION If not done in ED>> No: Do not add to previous draw Performed By: #### 0 0121, 45743, 10611, 47416, 08014 #### [facility] [address] [place] [address], [facility] CBC COMPLETE BLOOD COUNTon 0 - Erythrocyte distribution width (RBC) [Ratio] 12.8 % Normal 11.5-15.0 [facility] Comment on above: Order Comment: << ON ADMISSION If not done in ED>> No: Do not add to previous draw Performed By: #### 0 0121, 74295, 19841, 55738, 86148 #### [facility] [address] [place] [address], [facility] Hematocrit (Bld) [Volume fraction] 55.1 % High 39.0-50.0 [facility] Comment on above: Order Comment: << ON ADMISSION If not done in ED>> No: Do not add to previous draw Performed By: #### 0 0121, 16753, 55314, 63395, 20952 #### [facility] [address] [place] [address], [facility] Hemoglobin (Bld) [Mass/Vol] 17.5 g/dL High 13.0-17.0 [facility] Comment on above: Order Comment: << ON ADMISSION If not done in ED>> No: Do not add to previous draw Performed By: #### 0 0121, 11238, 24248, 09332, 59647 #### [facility] [address] MCH (RBC) [Entitic mass] 28.6 pg Normal 27.0-33.0 [facility] Comment on above: Order Comment: << ON ADMISSION If not done in ED>> No: Do not add to previous draw Performed By: #### 0 0121, 82534, 77024, 12610, 20583 #### [facility] [address] MCHC (RBC) [Mass/Vol] 31.8 g/dL Low 32.0-35.0 [facility] Comment on above: Order Comment: << ON ADMISSION If not done in ED>> No: Do not add to previous draw Performed By: #### 0 0121, 01987, 99065, 69770, 78070 #### [facility] [address] [place] [address], [facility] MCV (RBC) [Entitic vol] 90.0 fL Normal 82.0-98.0 [facility] Comment on above: Order Comment: << ON ADMISSION If not done in ED>> No: Do not add to previous draw Performed By: #### 0 0121, 13415, 40069, 17816, 70898 #### [facility] [address] [facility]. [address] Nucleated RBC/100 WBC (Bld) [Ratio] 0 % Normal 0-0 [facility] Comment on above: Order Comment: << ON ADMISSION If not done in ED>> No: Do not add to previous draw Performed By: #### 0 0121, 62607, 99286, 53960, 95044 #### [facility] [address] PLAT CNT 286 10*3/uL Normal 150-400 [facility] Comment on above: Order Comment: << ON ADMISSION If not done in ED>> No: Do not add to previous draw Performed By: #### 0 0121, 85646, 70147, 42600, 38707 #### [facility] [address] RBC (Bld) [#/Vol] 6.12 10*6/uL High 4.20-5.70 [facility] Comment on above: Order Comment: << ON ADMISSION If not done in ED>> No: Do not add to previous draw Performed By: #### 0 0121, 96820, 61942, 73346, 92528 #### [facility] [address] WBC (Bld) [#/Vol] 9.33 10*3/uL Normal 4.00-10.60 [facility] Comment on above: Order Comment: << ON ADMISSION If not done in ED>> No: Do not add to previous draw Performed By: #### 0 0121, 30429, 77056, 18289, 80572 #### [facility] [address] [facility]. [address] MAGNESIUM BLOODon 03-18-2019 Magnesium [Mass/Vol] 2.4 mg/dL Normal 1.9-2.7 [facility] Comment on above: Performed By: #### 0 0121, 38999, 42365, 13316, 60109 #### [facility] [address] [place] [address], [facility] TYPE AND SCREENon 03-18-2019 ABO INTERPRETATION O Normal [facility] Comment on above: Performed By: #### 0 0121, 52936, 40249, 16300, 08883 #### [facility] [address] [place] [address], [facility] RH INTERPRETATION Negative Normal [facility] Comment on above: Performed By: #### 0 0121, 83351, 41672, 68726, 81889 #### [facility] [address] UFH HEPARIN ASSAYon 03-18-20 19 UNFRACTIONATED HEPARIN 0.19 IU/mL Low 0.30-0.70 [facility] Comment on above: Order Comment: If no t done in ED No: Do not add to previous draw Result Comment: [employer] roxaban and Apixaban will interfere with the anti Xa assay used to monitor UFH and LMWH. Performed By: #### 0 0121, 22422, 23775, 84521, 67638 #### [facility] [address] UNFRACTIONATED HEPARIN 0.29 IU/mL Low 0.30-0.70 [facility] Comment on above: Order Comment: << ON ADMISSION If not done in ED>> No: Do not add to previous draw Result Comment: [employer] roxaban and Apixaban will interfere with the anti Xa assay used to monitor UFH and LMWH. Performed By: #### 0 0121, 25409, 61252, 87451, 63544 #### [facility] [address] [place] [address], [facility] UNFRACTIONATED HEPARIN 0.25 IU/mL Low 0.30-0.70 [facility] Comment on above: Result Comment: [employer] roxaban and Apixaban will interfere with the anti Xa assay used to monitor UFH and LMWH. Performed By: #### 0 0121, 91485, 21782, 88116, 32136 #### [facility] [address] [place] [address], [place] URINALYSISon 03-18-2019 Appearance (U) CLEAR Normal CLEAR [facility] Comment on above: Order Comment: If no t done in ED No: Do not add to previous draw Performed By: #### 0 0121, 63399, 40631, 83364, 12556 #### [facility] [address] [place] [address], [place] Bilirubin [Mass/Vol] Negative Normal NEGATIVE [facility] Comment on above: Order Comment: If no t done in ED No: Do not add to previous draw Performed By: #### 0 0121, 46076, 47780, 86048, 22894 #### [facility] [address] [place] [address], [place] BLOOD Negative Normal NEGATIVE [facility] Comment on above: Order Comment: If no t done in ED No: Do not add to previous draw Performed By: #### 0 0121, 39356, 41646, 19248, 53566 #### [facility] [address] [place] [address], [place] Color (U) YELLOW Normal YELLOW [facility] Comment on above: Order Comment: If no t done in ED No: Do not add to previous draw Performed By: #### 0 0121, 47914, 41381, 36143, 23077 #### [facility] [address] [place] [address], [place] Glucose [Mass/Vol] Negative Normal NEGATIVE [facility] Comment on above: Order Comment: If no t done in ED No: Do not add to previous draw Performed By: #### 0 0121, 51277, 64907, 89757, 13033 #### [facility] [address] [place] [address], [place] KETONE Negative Normal NEGATIVE [facility] Comment on above: Order Comment: If no t done in ED No: Do not add to previous draw Performed By: #### 0 0121, 67409, 39149, 30734, 78728 #### [facility] [address] [place] [address], [place] LEUK RADHA Negative Normal NEGATIVE [facility] Comment on above: Order Comment: If no t done in ED No: Do not add to previous draw Performed By: #### 0 0121, 46134, 84386, 26398, 64659 #### [facility] [address] [place] [address], [facility] MICRO NOT DONE negative chemical reactions unless requested in original order Normal [facility] Comment on above: Order Comment: If no t done in ED No: Do not add to previous draw Performed By: #### 0 0121, 44287, 34553, 16515, 21428 #### [facility] [address] [place] [address], [place] Nitrite Ql (U) Negative Normal NEGATIVE [facility] Comment on above: Order Comment: If no t done in ED No: Do not add to previous draw Performed By: #### 0 0121, 05730, 64349, 62411, 37455 #### [facility] [address] [place] [address], [facility] pH (Bld) 6.0 Normal 5.0-8.0 [facility] Comment on above: Order Comment: If no t done in ED No: Do not add to previous draw Performed By: #### 0 0121, 60933, 11625, 68071, 78515 #### [facility] [address] [place] [address], [place] Protein (U) [Mass/Vol] Negative Normal NEGATIVE [facility] Comment on above: Order Comment: If no t done in ED No: Do not add to previous draw Performed By: #### 0 0121, 23514, 73497, 72925, 06885 #### [facility] [address] SPEC GRAV 1.017 Normal 1.015-1.020 [facility] Comment on above: Order Comment: If no t done in ED No: Do not add to previous draw Performed By: #### 0 0121, 31037, 41828, 50065, 77100 #### [facility] [address] APTTon 03-17-2019 aPTT Coag (Bld) [Time] 67.3 s High 25.0-35.0 [facility] Comment on above: Order Comment: No: [...] THIS PURPOSE. Performed By: #### 0 0121, 49576, 72870, 63911, 48532 #### [facility] [address] [facility]. [address] BASIC METABOLIC PANELon 02-28 Calcium [Mass/Vol] 9.1 mg/dL Normal 8.6-10.3 [facility] Comment on above: Order Comment: No: D o not add to previous draw Performed By: #### 0 0121, 89962, 16173, 62072, 72560 #### [facility] [address] Chloride [Moles/Vol] 101 mmol/L Normal 98-107 [facility] Comment on above: Order Comment: No: D o not add to previous draw Performed By: #### 0 0121, 02314, 65565, 61315, 94820 #### [facility] [address] [place] [address], [facility] CO2 [Moles/Vol] 24 mmol/L Normal 21-31 [facility] Comment on above: Order Comment: No: D o not add to previous draw Performed By: #### 0 0121, 28179, 46064, 93133, 91747 #### [facility] [address] [place] [address], [facility] Creatinine [Mass/Vol] 1.02 mg/dL Normal 0.70-1.30 [facility] Comment on above: Order Comment: No: D o not add to previous draw Performed By: #### 0 0121, 12159, 25983, 46002, 61703 #### [facility] [address] [place] [address], [facility] GFR/1.73 sq M predicted among blacks MDRD (S/P/Bld) [Vol rate/Area] mL/min/{1.73_m2} Normal >60 [facility] Comment on above: Order Comment: No: D o not add to previous draw Performed By: #### 0 0121, 00779, 06574, 92461, 08557 #### [facility] [address] [facility] [place] [address], [facility] GFR/1.73 sq M predicted among non-blacks MDRD (S/P/Bld) [Vol rate/Area] mL/min/{1.73_m2} Normal >60 [facility] Comment on above: Order Comment: No: D o not add to previous draw Performed By: #### 0 0121, 44577, 86699, 25381, 49553 #### [facility] [address] [place] [address], [place] Glucose [Mass/Vol] 102 mg/dL High 70-100 [facility] Comment on above: Order Comment: No: D o not add to previous draw Performed By: #### 0 0121, 40969, 39845, 80427, 56379 #### [facility] [address] [place] [address], [facility] Potassium [Moles/Vol] 3.7 mmol/L Normal 3.5-5.1 [facility] Comment on above: Order Comment: No: D o not add to previous draw Performed By: #### 0 0121, 68445, 54955, 90691, 39791 #### [facility] [address] [place] [address], [place] Sodium [Moles/Vol] 135 mmol/L Low 136-145 [facility] Comment on above: Order Comment: No: D o not add to previous draw Performed By: #### 0 0121, 01938, 48390, 69585, 33147 #### [facility] [address] [place] [address], [facility] Urea nitrogen [Mass/Vol] 18 mg/dL Normal 7-25 [facility] Comment on above: Order Comment: No: D o not add to previous draw Performed By: #### 0 0121, 52032, 91415, 61035, 76747 #### [facility] [address] [place] [address], [facility] CBC COMPLETE BLOOD COUNTon 0 - Erythrocyte distribution width (RBC) [Ratio] 12.9 % Normal 11.5-15.0 [facility] Comment on above: Order Comment: No: D o not add to previous draw Performed By: #### 0 0121, 12777, 93128, 57759, 58566 #### [facility] [address] [place] [address], [place] Hematocrit (Bld) [Volume fraction] 50.6 % High 39.0-50.0 [facility] Comment on above: Order Comment: No: D o not add to previous draw Performed By: #### 0 0121, 43339, 26853, 11040, 85912 #### [facility] [address] [place] [address], [place] Hemoglobin (Bld) [Mass/Vol] 16.1 g/dL Normal 13.0-17.0 [facility] Comment on above: Order Comment: No: D o not add to previous draw Performed By: #### 0 0121, 08227, 28505, 68531, 01313 #### [facility] [address] [place] [address], [facility] MCH (RBC) [Entitic mass] 28.6 pg Normal 27.0-33.0 [facility] Comment on above: Order Comment: No: D o not add to previous draw Performed By: #### 0 0121, 40544, 53733, 97568, 14397 #### [facility] [address] [facility] [address] MCHC (RBC) [Mass/Vol] 31.8 g/dL Low 32.0-35.0 [facility] Comment on above: Order Comment: No: D o not add to previous draw Performed By: #### 0 0121, 02954, 54689, 85386, 47476 #### [facility] [address] [facility] [place] [address], [facility] MCV (RBC) [Entitic vol] 90.0 fL Normal 82.0-98.0 [facility] Comment on above: Order Comment: No: D o not add to previous draw Performed By: #### 0 0121, 04830, 74991, 29138, 06949 #### [facility] [address] [facility] [address] Nucleated RBC/100 WBC (Bld) [Ratio] 0 % Normal 0-0 [facility] Comment on above: Order Comment: No: D o not add to previous draw Performed By: #### 0 0121, 19814, 98447, 69477, 48889 #### [facility] [address] [place] [address], [facility] PLAT CNT 274 10*3/uL Normal 150-400 [facility] Comment on above: Order Comment: No: D o not add to previous draw Performed By: #### 0 0121, 49213, 04958, 66085, 40369 #### [facility] [address] [place] [address], [facility] RBC (Bld) [#/Vol] 5.62 10*6/uL Normal 4.20-5.70 [facility] Comment on above: Order Comment: No: D o not add to previous draw Performed By: #### 0 0121, 91845, 95339, 54644, 12899 #### [facility] [address] [facility] [place] [address], [facility] WBC (Bld) [#/Vol] 9.65 10*3/uL Normal 4.00-10.60 [facility] Comment on above: Order Comment: No: D o not add to previous draw Performed By: #### 0 0121, 43794, 09532, 97087, 04481 #### [facility] [address] Cardiovascular Lab Reporton 03-17-2019 Cardiovascular Lab Report [facility] Patient Name: Paras [facility] Jeri MR #: [id number] Department of Physician: Madan Parsons M.D. Division of Service Date: 03/16/2019 Cardiology Birthdate: 1965 Adult Cardiovascular Room #: 3AB [id number] [place] [address] Cardiovascular Laboratory Report CLINICAL PRESENTATION: The patient is a 53-year-old male, who was transferred from the [facility], due to his symptoms of shortness [...] guidance and a micropuncture access technique, a 6-[place] sheath was placed in the right internal jugular vein. A Clark catheter was then advanced under fluoroscopic hemodynamic monitor to the right atrium. Pressure was obtained in the right atrium, right ventricle, pulmonary artery, pulmonary capillary wedge position. Oxygen saturations drawn from the pulmonary artery and the Nanci cardiac output and cardiac index were calculated. The Clark catheter was then removed. Next, a 6-[place] Terumo Glidesheath slender was placed in the right radial artery. The radial anti-vasospasm cocktail of nitroglycerin 100 mcg was administered through the sheath. All catheter exchanges were made over the Magic Torque guidewire. A 5-[place] Fletcher catheter was used to engage the left [...] P/Krys Day M.D. Date Trans: 03/17/2019 05:03 Jhoan/bessie [id number] cc: Titus Villegas M.D. [address] [facility] [address] Normal [facility] MAGNESIUM BLOODon 03-17-2019 Magnesium [Mass/Vol] 2.2 mg/dL Normal 1.9-2.7 [facility] Comment on above: Order Comment: No: D o not add to previous draw Performed By: #### 0 0121, 49241, 57128, 62948, 03690 #### [facility] [address] [facility] [place] [address], [facility] UFH HEPARIN ASSAYon 03-17-20 19 UNFRACTIONATED HEPARIN 0.30 IU/mL Normal 0.30-0.70 [facility] Comment on above: Result Comment: [employer] roxaban and Apixaban will interfere with the anti Xa assay used to monitor UFH and LMWH. Performed By: #### 0 0121, 46299, 64038, 91030, 01403 #### [facility] [address] [place] [address], [facility] APTTon 03-16-2019 aPTT Coag (Bld) [Time] 63.7 s High 25.0-35.0 [facility] Comment on above: Order Comment: No: [...] OF HEPARIN. Performed By: #### 0 0121, 09575, 74512, 30084, 34762 #### [facility] [address] aPTT Coag (Bld) [Time] 87.5 s Critically high 25.0-35.0 [facility] Comment on above: Order Comment: No: [...] READ BACK BY DAKOTAH MONTANO RN @ 1915 on 03-16-19 CLINICAL SIGNIFICANCE OF THE PTT RESULT IS QUESTIONABLE IN THE PRESENCE OF HEPARIN. Performed By: #### 0 0121, 30470, 20607, 60434, 21988 #### [facility] [address] Cardiovascular Lab Reporton 03-16-2019 Cardiovascular Lab Report [facility] Patient Name: Paras [facility] Jeri MR #: [id number] Department of Physician: Ilan Danielson MD Division of Service Date: 03/16/2019 Cardiology Birthdate: 1965 Adult Cardiovascular Room #: 3AB [id number] [facility] [address] [place], [place] [address] Cardiovascular Laboratory Report PROCEDURE: Transesophageal echocardiogram and cardioversion. INDICATION: Atrial fibrillation. PROCEDURE IN DETAIL: An informed consent was obtained from the patient after explaining indications, risks, benefits, and alternatives. The patient understood and agreed and signed the consent form. The patient was brought to the ballistics laboratory gun[facility] and GERMAN/transesophageal echocardiogram was performed under conscious [...] A/Ilan Danielson MD Date Trans: 03/16/2019 07:28 P/bessie [id number] cc: Titus Villegas M.D. [address] [address] Normal [facility] ERYTHROPOIETIN 45708mo 03-16 ERYTHROPOIETIN 7 mU/mL Normal 4-27 [facility] Comment on above: Order Comment: << [...] may benefit from therapy with recombinant EPO ([facility] [id number]). Performed by [employer], [address] [place] [id number] [email or web address], Jann Somers MD - Lab. Director UFH HEPARIN ASSAYon 03-16-20 19 UNFRACTIONATED HEPARIN 0.43 IU/mL Normal 0.30-0.70 [facility] Comment on above: Result Comment: [employer] roxaban and Apixaban will interfere with the anti Xa assay used to monitor UFH and LMWH. Performed By: #### 0 0121, 46203, 21262, 50322, 33968 #### [facility] 3000 [facility]. [address] UNFRACTIONATED HEPARIN 0.53 IU/mL Normal 0.30-0.70 [facility] Comment on above: Result Comment: [employer] roxaban and Apixaban will interfere with the anti Xa assay used to monitor UFH and LMWH. Performed By: #### 0 0121, 28564, 77607, 61922, 77293 #### [facility] [address] [place] [address], [facility] APTTon 03-15-2019 aPTT Coag (Bld) [Time] 74.0 s Critically high 25.0-35.0 [facility] Comment on above: Order Comment: No: [...] AT 2127 Performed By: #### 0 0121, 82316, 05294, 97397, 89511 #### [facility] [address] [facility] [place] [address], [facility] aPTT Coag (Bld) [Time] 84.1 s Critically high 25.0-35.0 [facility] Comment on above: Order Comment: << [...] OF HEPARIN. Performed By: #### 0 0121, 39139, 33426, 81909, 69420 #### [facility] [address] [place] [address], [place] aPTT Coag (Bld) [Time] 59.2 s High 25.0-35.0 [facility] Comment on above: Order Comment: << [...] THIS PURPOSE. Performed By: #### 0 0121, 73508, 56614, 06195, 41289 #### [facility] [address] [place] [address], [facility] BASIC METABOLIC PANELon 02-28 Calcium [Mass/Vol] 9.9 mg/dL Normal 8.6-10.3 [facility] Comment on above: Order Comment: << On admission If not done in ED>> No: Do not add to previous draw Performed By: #### 0 0121, 08431, 69023, 95427, 07388 #### [facility] [address] [place] [address], [facility] Chloride [Moles/Vol] 101 mmol/L Normal 98-107 [facility] Comment on above: Order Comment: << On admission If not done in ED>> No: Do not add to previous draw Performed By: #### 0 0121, 68911, 34794, 78201, 96588 #### [facility] [address] [place] [address], [facility] CO2 [Moles/Vol] 25 mmol/L Normal 21-31 [facility] Comment on above: Order Comment: << On admission If not done in ED>> No: Do not add to previous draw Performed By: #### 0 0121, 16457, 71531, 87561, 69019 #### [facility] [address] [place] [address], [facility] Creatinine [Mass/Vol] 1.02 mg/dL Normal 0.70-1.30 [facility] Comment on above: Order Comment: << On admission If not done in ED>> No: Do not add to previous draw Performed By: #### 0 0121, 47809, 57096, 89975, 01554 #### [facility] [address] [place] [address], [place] GFR/1.73 sq M predicted among blacks MDRD (S/P/Bld) [Vol rate/Area] mL/min/{1.73_m2} Normal >60 [facility] Comment on above: Order Comment: << On admission If not done in ED>> No: Do not add to previous draw Performed By: #### 0 0121, 67526, 71714, 92090, 35680 #### [facility] [address] [place] [address], [place] GFR/1.73 sq M predicted among non-blacks MDRD (S/P/Bld) [Vol rate/Area] mL/min/{1.73_m2} Normal >60 [facility] Comment on above: Order Comment: << On admission If not done in ED>> No: Do not add to previous draw Performed By: #### 0 0121, 08889, 32973, 41134, 08535 #### [facility] [address] [place] [address], [place] Glucose [Mass/Vol] 100 mg/dL Normal 70-100 [facility] Comment on above: Order Comment: << On admission If not done in ED>> No: Do not add to previous draw Performed By: #### 0 0121, 75405, 97446, 51854, 77392 #### [facility] [address] [place] [address], [place] Potassium [Moles/Vol] 4.0 mmol/L Normal 3.5-5.1 [facility] Comment on above: Order Comment: << On admission If not done in ED>> No: Do not add to previous draw Performed By: #### 0 0121, 09115, 23939, 49585, 16655 #### [facility] [address] [place] [address], [place] Sodium [Moles/Vol] 135 mmol/L Low 136-145 [facility] Comment on above: Order Comment: << On admission If not done in ED>> No: Do not add to previous draw Performed By: #### 0 0121, 97174, 73689, 63202, 04979 #### [facility] [address] [place] [address], [facility] Urea nitrogen [Mass/Vol] 24 mg/dL Normal 7-25 [facility] Comment on above: Order Comment: << On admission If not done in ED>> No: Do not add to previous draw Performed By: #### 0 0121, 26780, 85692, 54601, 06456 #### [facility] [address] [place] [address], [facility] CBC COMPLETE BLOOD COUNTon 0 03-15-2019 Erythrocyte distribution width (RBC) [Ratio] 13.1 % Normal 11.5-15.0 [facility] Comment on above: Order Comment: << On admission If not done in ED>> No: Do not add to previous draw Performed By: #### 0 0121, 00231, 55089, 31167, 93847 #### [facility] [address] [place] [address], [facility] Hematocrit (Bld) [Volume fraction] 53.6 % High 39.0-50.0 [facility] Comment on above: Order Comment: << On admission If not done in ED>> No: Do not add to previous draw Performed By: #### 0 0121, 67832, 05463, 67520, 38885 #### [facility] [address] [place] [address], [facility] Hemoglobin (Bld) [Mass/Vol] 17.4 g/dL High 13.0-17.0 [facility] Comment on above: Order Comment: << On admission If not done in ED>> No: Do not add to previous draw Performed By: #### 0 0121, 25164, 64926, 28176, 02501 #### [facility] [address] MCH (RBC) [Entitic mass] 28.6 pg Normal 27.0-33.0 [facility] Comment on above: Order Comment: << On admission If not done in ED>> No: Do not add to previous draw Performed By: #### 0 0121, 93242, 10676, 84315, 61136 #### [facility] [address] MCHC (RBC) [Mass/Vol] 32.5 g/dL Normal 32.0-35.0 [facility] Comment on above: Order Comment: << On admission If not done in ED>> No: Do not add to previous draw Performed By: #### 0 0121, 95740, 08512, 38113, 76394 #### [facility] [address] MCV (RBC) [Entitic vol] 88.0 fL Normal 82.0-98.0 [facility] Comment on above: Order Comment: << On admission If not done in ED>> No: Do not add to previous draw Performed By: #### 0 0121, 72228, 25682, 60243, 86935 #### [facility] [address] Nucleated RBC/100 WBC (Bld) [Ratio] 0 % Normal 0-0 [facility] Comment on above: Order Comment: << On admission If not done in ED>> No: Do not add to previous draw Performed By: #### 0 0121, 86317, 81597, 35897, 89190 #### [facility] [address] [place] [address], [facility] PLAT CNT 286 10*3/uL Normal 150-400 [facility] Comment on above: Order Comment: << On admission If not done in ED>> No: Do not add to previous draw Performed By: #### 0 0121, 53428, 12019, 59309, 38239 #### [facility] [address] [place] [address], [facility] RBC (Bld) [#/Vol] 6.09 10*6/uL High 4.20-5.70 [facility] Comment on above: Order Comment: << On admission If not done in ED>> No: Do not add to previous draw Performed By: #### 0 0121, 49751, 61199, 24737, 74718 #### [facility] [address] [facility] [place] [address], [facility] WBC (Bld) [#/Vol] 10.49 10*3/uL Normal 4.00-10.60 [facility] Comment on above: Order Comment: << On admission If not done in ED>> No: Do not add to previous draw Performed By: #### 0 0121, 73001, 88272, 23870, 88018 #### [facility] 3000 [facility]. [address] LIPID PROFILEon 03-15-2019 Cholesterol [Mass/Vol] 140 mg/dL Normal 120-200 [facility] Comment on above: Order Comment: << On admission If not done in ED>> No: Do not add to previous draw Result Comment: CHOL ESTEROL REFERENCE RANGE: 20 YEARS AND OLDER CARDIOVASCULAR RISK Less than 200 mg/dl Low Risk 200 to 239 mg/dl Borderline Risk 240 mg/dl and greater High Risk Performed By: #### 0 0121, 09537, 75171, 28093, 16185 #### [facility] [address] [facility]. [address] Cholesterol in HDL [Mass/Vol] 38 mg/dL Normal 23-92 [facility] Comment on above: Order Comment: << [...] High Risk Performed By: #### 0 0121, 13235, 14439, 37232, 03373 #### [facility] [address] [place] [address], [facility] Cholesterol in LDL [Mass/Vol] 88 mg/dL Normal 0-130 [facility] Comment on above: Order Comment: << On admission If not done in ED>> No: Do not add to previous draw Result Comment: LDL IS A CALCULATION LDL IS ONLY VALID IF THE TRIG IS LESS THAN 400. Performed By: #### 0 0121, 08112, 50381, 54706, 44893 #### [facility] [address] [place] [address], [facility] Cholesterol.total/Ch olesterol in HDL [Mass ratio] 3.7 {ratio} Normal .0-4.5 [facility] Comment on above: Order Comment: << On admission If not done in ED>> No: Do not add to previous draw Performed By: #### 0 0121, 30595, 16037, 62776, 51810 #### [facility] [address] NON-HDL CHOLESTEROL 102 mg/dL Normal [facility] Comment on above: Order Comment: << On admission If not done in ED>> No: Do not add to previous draw Performed By: #### 0 0121, 33250, 03696, 20474, 62708 #### [facility] [address] [place] [address], [facility] Triglyceride [Mass/Vol] 70 mg/dL Normal 40-149 [facility] Comment on above: Order Comment: << On admission If not done in ED>> No: Do not add to previous draw Result Comment: TRIG LYCERIDE REFERENCE RANGE: 20 YEARS AND OLDER CARDIOVASCULAR RISK LESS THAN 150 mg/dl LOW RISK 150 TO 199 mg/dl BORDERLINE RISK 200 mg/dl AND GREATER HIGH RISK Performed By: #### 0 0121, 83897, 48297, 89841, 30687 #### [facility] [address] [facility] [place] [address], [facility] VLDL CHOL 14 mg/dL Normal 0-40 [facility] Comment on above: Order Comment: << On admission If not done in ED>> No: Do not add to previous draw Performed By: #### 0 0121, 11325, 61291, 71339, 32713 #### [facility] [address] [facility]. [address] TROPONIN-Ion 03-15-2019 Troponin I.cardiac [Mass/Vol] 0.01 ng/mL Normal 0.00-0.04 [facility] Comment on above: Order Comment: << On admission If not done in ED>> No: Do not add to previous draw Result Comment: REFE RENCE RANGES: 0.00 - 0.04 ng/ml NORMAL 0.05 - 0.50 ng/ml INDETERMINATE > 0.50 ng/ml CONSISTENT WITH AN M.I. Performed By: #### 0 0121, 43246, 47895, 12234, 90023 #### [facility] [address] [facility] [address] UFH HEPARIN ASSAYon 03-15-20 19 UNFRACTIONATED HEPARIN 0.62 IU/mL Normal 0.30-0.70 [facility] Comment on above: Order Comment: No: D o not add to previous draw Result Comment: [employer] roxaban and Apixaban will interfere with the anti Xa assay used to monitor UFH and LMWH. Performed By: #### 0 0121, 02234, 89923, 65876, 15688 #### [facility] [address] [facility] [address] UNFRACTIONATED HEPARIN 0.92 IU/mL Critically high 0.30-0.70 [facility] Comment on above: Result Comment: [employer] roxaban and Apixaban will interfere with the anti Xa assay used to monitor UFH and LMWH. RESULTS CHECKED AND CALLED. ACCURATELY READ BACK BY DAXA MONTEJO RN @ 3987 Performed By: #### 0 0121, 29711, 24387, 56216, 36574 #### [facility] [address] [employer]. [address] UNFRACTIONATED HEPARIN 0.90 IU/mL Critically high 0.30-0.70 [facility] Comment on above: Result Comment: [employer] roxaban and Apixaban will interfere with the anti Xa assay used to monitor UFH and LMWH. RESULTS CHECKED AND CALLED. ACCURATELY READ BACK BY DAXA MONTEJO RN @ 0822 Performed By: #### 0 0121, 33753, 06117, 37991, 65786 #### [facility] 3000 [facility]. [address] APTTon 03-14-2019 aPTT Coag (Bld) [Time] 32.8 s Normal 25.0-35.0 [facility] Comment on above: Order Comment: No: [...] PURPOSE. Performed By: #### 5 7307 #### [facility] [address] [facility]. [address] BNP (B-TYPE NATRIURETIC PEPT PACHECO)on 03-14-2019 Natriuretic peptide B (Bld) [Mass/Vol] 112 pg/mL High 0-100 [facility] Comment on above: Order Comment: If no t done in ED No: Do not add to previous draw Result Comment: Give n the appropriate clinical setting a BNP result of >100 pg/mL indicates congestive heart failure. Performed By: #### 8 5123, 85088 #### [facility] [address] [facility]. [address] CBC W/DIFFon 03-14-2019 ABS BASOPHILS 0.1 10*3/uL Normal 0.0-0.2 [facility] Comment on above: Order Comment: If no t done in ED No: Do not add to previous draw Performed By: #### 5 0103 #### [facility] [address] [place] [address], [facility] ABS IMM GRANS 0.1 10*3/uL Normal 0.0-0.2 [facility] Comment on above: Order Comment: If no t done in ED No: Do not add to previous draw Performed By: #### 5 0103 #### [facility] [address] [place] [address], [facility] ABS NEUTROPHILS 7.1 10*3/uL Normal 1.6-7.6 The [facility] Comment on above: Order Comment: If no t done in ED No: Do not add to previous draw Performed By: #### 5 0103 #### [facility] [address] [place] [id number], [facility] Basophils/100 WBC (Bld) 1.0 % Normal 0.0-1.0 [facility] Comment on above: Order Comment: If no t done in ED No: Do not add to previous draw Performed By: #### 5 0103 #### [facility] [address] [place] [address], [facility] Eosinophils (Bld) [#/Vol] 0.3 10*3/uL Normal 0.0-0.5 [facility] Comment on above: Order Comment: If no t done in ED No: Do not add to previous draw Performed By: #### 5 0103 #### [facility] [address] [place] [address], [facility] Eosinophils/100 WBC (Bld) 2.8 % Normal 0.0-6.0 [facility] Comment on above: Order Comment: If no t done in ED No: Do not add to previous draw Performed By: #### 5 0103 #### [facility] [address] [place] [id number], [facility] Erythrocyte distribution width (RBC) [Ratio] 13.2 % Normal 11.5-15.0 [facility] Comment on above: Order Comment: If no t done in ED No: Do not add to previous draw Performed By: #### 5 0103 #### [facility] [address] [place] [address], [facility] Hematocrit (Bld) [Volume fraction] 53.8 % High 39.0-50.0 [facility] Comment on above: Order Comment: If no t done in ED No: Do not add to previous draw Performed By: #### 5 0103 #### [facility] [address] [place] [address], [facility] Hemoglobin (Bld) [Mass/Vol] 17.2 g/dL High 13.0-17.0 [facility] Comment on above: Order Comment: If no t done in ED No: Do not add to previous draw Performed By: #### 5 0103 #### [facility] [address] [facility] [place] [address], [facility] IMMATURE GRANS 0.5 % Normal 0.0-1.0 [facility] Comment on above: Order Comment: If no t done in ED No: Do not add to previous draw Performed By: #### 5 0103 #### [facility] [address] [facility] [place] [address], [facility] Lymphocytes (Bld) [#/Vol] 2.4 10*3/uL Normal 1.2-4.0 [facility] Comment on above: Order Comment: If no t done in ED No: Do not add to previous draw Performed By: #### 5 0103 #### [facility] [address] [place] [address], [facility] Lymphocytes/100 WBC (Bld) 21.0 % Normal 20.0-45.0 [facility] Comment on above: Order Comment: If no t done in ED No: Do not add to previous draw Performed By: #### 5 0103 #### [facility] [address] [facility] [place] [address], [facility] MCH (RBC) [Entitic mass] 28.9 pg Normal 27.0-33.0 [facility] Comment on above: Order Comment: If no t done in ED No: Do not add to previous draw Performed By: #### 5 0103 #### [facility] [address] [place] [id number], [facility] MCHC (RBC) [Mass/Vol] 32.0 g/dL Normal 32.0-35.0 [facility] Comment on above: Order Comment: If no t done in ED No: Do not add to previous draw Performed By: #### 5 0103 #### [facility] [address] [place] [address], [facility] MCV (RBC) [Entitic vol] 90.4 fL Normal 82.0-98.0 [facility] Comment on above: Order Comment: If no t done in ED No: Do not add to previous draw Performed By: #### 5 0103 #### [facility] [address] [facility] [place] [id number], [facility] Monocytes (Bld) [#/Vol] 1.4 10*3/uL High 0.1-1.0 [facility] Comment on above: Order Comment: If no t done in ED No: Do not add to previous draw Performed By: #### 5 3 #### [facility] [address] [facility] [place] [address], [facility] MONOS 12.2 % High 5.0-12.0 [facility] Comment on above: Order Comment: If no t done in ED No: Do not add to previous draw Performed By: #### 5 0103 #### [facility] [address] [facility] [place] [address], [facility] Neutrophils/100 WBC (Bld) 62.5 % Normal 40.0-72.0 [facility] Comment on above: Order Comment: If no t done in ED No: Do not add to previous draw Performed By: #### 5 0103 #### [facility] [address] [place] [address], [facility] Nucleated RBC/100 WBC (Bld) [Ratio] 0 % Normal 0-0 [facility] Comment on above: Order Comment: If no t done in ED No: Do not add to previous draw Performed By: #### 5 0103 #### [facility] [address] [place] [address], [facility] PLAT CNT 321 10*3/uL Normal 150-400 [facility] Comment on above: Order Comment: If no t done in ED No: Do not add to previous draw Performed By: #### 5 0103 #### [facility] [address] [facility] [place] [address], [facility] RBC (Bld) [#/Vol] 5.95 10*6/uL High 4.20-5.70 [facility] Comment on above: Order Comment: If no t done in ED No: Do not add to previous draw Performed By: #### 5 0103 #### [facility] [address] [facility] [place] [address], [facility] WBC (Bld) [#/Vol] 11.32 10*3/uL High 4.00-10.60 [facility] Comment on above: Order Comment: If no t done in ED No: Do not add to previous draw Performed By: #### 5 0103 #### [facility] [address] [place] [address], [facility] COMP METABOLIC PANELon 03-14 Albumin [Mass/Vol] 4.3 g/dL Normal 3.5-5.7 [facility] Comment on above: Order Comment: << On admission If not done in ED>> No: Do not add to previous draw Performed By: #### 0 0121, 06214, 22732, 45350, 22859 #### [facility] [address] [place] [address], [facility] ALKALINE PHOSPH 59 IU/L Normal 34-104 [facility] Comment on above: Order Comment: << On admission If not done in ED>> No: Do not add to previous draw Performed By: #### 0 0121, 21288, 31268, 29063, 16394 #### [facility] [address] [place] [address], [facility] ALT [Catalytic activity/Vol] 21 U/L Normal 7-52 [facility] Comment on above: Order Comment: << On admission If not done in ED>> No: Do not add to previous draw Performed By: #### 0 0121, 32964, 23374, 79204, 67555 #### [facility] [address] [place] [address], [facility] AST [Catalytic activity/Vol] 26 U/L Normal 13-39 [facility] Comment on above: Order Comment: << On admission If not done in ED>> No: Do not add to previous draw Performed By: #### 0 0121, 25077, 59010, 07507, 11909 #### [facility] [address] [place] [address], [facility] Bilirubin [Mass/Vol] 1.1 mg/dL High 0.3-1.0 [facility] Comment on above: Order Comment: << On admission If not done in ED>> No: Do not add to previous draw Performed By: #### 0 0121, 94126, 40488, 65455, 18013 #### [facility] [address] [place] [address], [place] Calcium [Mass/Vol] 10.5 mg/dL High 8.6-10.3 [facility] Comment on above: Order Comment: << On admission If not done in ED>> No: Do not add to previous draw Performed By: #### 0 0121, 64469, 03390, 38327, 34019 #### [facility] [address] [place] [address], [facility] Chloride [Moles/Vol] 98 mmol/L Normal 98-107 [facility] Comment on above: Order Comment: << On admission If not done in ED>> No: Do not add to previous draw Performed By: #### 0 0121, 36980, 68020, 18920, 27677 #### [facility] [address] [place] [address], [facility] CO2 [Moles/Vol] 31 mmol/L Normal 21-31 [facility] Comment on above: Order Comment: << On admission If not done in ED>> No: Do not add to previous draw Performed By: #### 0 0121, 95807, 33463, 16881, 67397 #### [facility] [address] [place] [address], [facility] Creatinine [Mass/Vol] 1.36 mg/dL High 0.70-1.30 [facility] Comment on above: Order Comment: << On admission If not done in ED>> No: Do not add to previous draw Performed By: #### 0 0121, 77938, 55065, 12376, 83659 #### [facility] [address] [place] [address], [facility] GFR/1.73 sq M predicted among blacks MDRD (S/P/Bld) [Vol rate/Area] mL/min/{1.73_m2} Normal >60 [facility] Comment on above: Order Comment: << On admission If not done in ED>> No: Do not add to previous draw Performed By: #### 0 0121, 00960, 30468, 11567, 60253 #### [facility] [address] [place] [address], [facility] GFR/1.73 sq M predicted among non-blacks MDRD (S/P/Bld) [Vol rate/Area] 55 ml/min/1.73sq m Abnormal >60 [facility] Comment on above: Order Comment: << On admission If not done in ED>> No: Do not add to previous draw Performed By: #### 0 0121, 28998, 67615, 65549, 19185 #### [facility] [address] [place] [address], [place] Glucose [Mass/Vol] 81 mg/dL Normal 70-100 [facility] Comment on above: Order Comment: << On admission If not done in ED>> No: Do not add to previous draw Performed By: #### 0 0121, 51497, 54296, 81971, 51196 #### [facility] [address] [place] [address], [place] Potassium [Moles/Vol] 3.8 mmol/L Normal 3.5-5.1 [facility] Comment on above: Order Comment: << On admission If not done in ED>> No: Do not add to previous draw Performed By: #### 0 0121, 16542, 27477, 12757, 67618 #### [facility] [address] [place] [address], [place] Protein [Mass/Vol] 7.4 g/dL Normal 6.0-8.3 [facility] Comment on above: Order Comment: << On admission If not done in ED>> No: Do not add to previous draw Performed By: #### 0 0121, 16302, 91891, 89722, 77215 #### [facility] [address] [place] [address], [place] Sodium [Moles/Vol] 138 mmol/L Normal 136-145 [facility] Comment on above: Order Comment: << On admission If not done in ED>> No: Do not add to previous draw Performed By: #### 0 0121, 91838, 74735, 06698, 19889 #### [facility] [address] [place] [address], [place] Urea nitrogen [Mass/Vol] 26 mg/dL High 7-25 [facility] Comment on above: Order Comment: << On admission If not done in ED>> No: Do not add to previous draw Performed By: #### 0 0121, 39009, 49903, 55821, 93921 #### [facility] [address] [place] [address], [facility] FREE T4on 03-14-2019 Free T4 [Mass/Vol] 1.18 ng/dL Normal 0.71-1.85 [facility] Comment on above: Order Comment: If no t done in ED No: Do not add to previous draw Performed By: #### 0 0121, 49659, 75485, 43451, 09977 #### [facility] [address] [place] [address], [facility] HEMOGLOBIN A1Con 03-14-2019 HbA1c (Bld) [Mass fraction] 103 mg/dL Normal 70-126 [facility] Comment on above: Order Comment: If no t done in ED No: Do not add to previous draw Performed By: #### 8 5123, 15483 #### [facility] [address] [place] [address], [facility] HbA1c (Bld) [Mass fraction] 5.2 % Normal 4.0-6.0 [facility] Comment on above: Order Comment: If no t done in ED No: Do not add to previous draw Performed By: #### 8 5123, 47044 #### [facility] [address] [facility]. [address] History and Physicalon 03-14 History and Physical MR#: [id number] [facility] Pt. Name: Argelia Crain Admitted: 03/14/2019 Date of : 1965 Attending Physician: Dimitry Lyles M.D. Room #: [id number] Discharge Date: HISTORY AND PHYSICAL CHIEF COMPLAINT: Atrial fibrillation and bilateral lower extremity swelling. HISTORY OF PRESENT ILLNESS: Mr. Whitt is a 53-year-old male with the past medical history of depression and GERD, who was transferred from [facility] for atrial fibrillation and congestive heart failure. The patient states that he has been complaining of progressively worsening bilateral lower extremity swelling for the last four months. The patient states that he has never had bilateral lower extremity swelling like this in the past. The patient was [facility] and was sent to [facility]. At [facility], EKG showed atrial fibrillation with RVR. Chest x-ray showed bilateral pulmonary venous congestion. The patient was admitted for one day at [facility] and was started on metoprolol 75 mg twice a day and Eliquis. The patient was also diuresed with Lasix and put out around 2.8 L of urine. An echocardiogram was done at [facility], which showed a reduced ejection fraction, [...] drug use. 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 FAMILY [...] he received metoprolol 75 mg b.i.d. at [facility]. His heart rate is currently in the 80s to 90s. Will start him on metoprolol 12.5 mg BID. The patient received a dose of Eliquis today this morning at [facility], will discontinue Eliquis and start him on heparin drip in the evening around 10 p.m. His TSH and T4 were normal at [facility]. If the patient does not convert back to normal sinus rhythm, the patient will have GERMAN/cardioversion on Saturday. 2. Acute systolic CHF exacerbation: An echocardiogram at [facility] showed reduced ejection fraction. The patient was diuresed with Lasix 40 mg IV twice a day at [place] and diuresed around 2.8 L. Will start [...] A Dimitry Lyles M.D. Date Dict: 03/14/2019/12:17 Filemon Lyles M.D. Date Trans: 03/14/2019 01:33 P/mmo [id number] Normal [facility] MAGNESIUM BLOODon 03-14-2019 Magnesium [Mass/Vol] 2.4 mg/dL Normal 1.9-2.7 [facility] Comment on above: Order Comment: << ON ADMISSION If not done in ED>> No: Do not add to previous draw Performed By: #### 0 0121, 05626, 54864, 48102, 42807 #### [facility] [address] PORTABLE CHEST 1 VIEWon 02-28 PORTABLE CHEST 1 VIEW [facility] Department of Radiology [address] [place] [id number] ======== Patient Name: ARGELIA CRAIN : 1965 Sex: M Age: Race: NA Pt. Location: [id number] Patient Status: I Ordered Date: 03/14/2019 10:35:00 [...] findings. Electronically signed by:Yenni Osuna. Transcribed by: [email or web address], User Resident: KAREEM LIAO Electronically Signed by: YENNI OSUNA @ 03/14/2019 04:53 PM I personally read this/these film(s) with this resident Normal [facility] Comment on above: Order Comment: R/O P ulmonary Edema TROPONIN-Ion 03-14-2019 Troponin I.cardiac [Mass/Vol] 0.00 ng/mL Normal 0.00-0.04 [facility] Comment on above: Order Comment: << On admission If not done in ED>> No: Do not add to previous draw Result Comment: REFE RENCE RANGES: 0.00 - 0.14 ng/ml NEGATIVE 0.15 - 0.25 ng/ml INDETERMINATE > 0.25 ng/ml INDICATIVE OF AN M.I. Performed By: #### 0 0121, 67281, 60670, 99525, 20271 #### [facility] [address] [facility]. [address] Troponin I.cardiac [Mass/Vol] 0.01 ng/mL Normal 0.00-0.04 [facility] Comment on above: Order Comment: No: D o not add to previous draw Result Comment: REFE RENCE RANGES: 0.00 - 0.04 ng/ml NORMAL 0.05 - 0.50 ng/ml INDETERMINATE > 0.50 ng/ml CONSISTENT WITH AN M.I. Performed By: #### 0 0121, 71736, 00965, 77518, 74865 #### [facility] [address] [place] [address], [facility] TSH3on 03-14-2019 TSH 3RD GENERATION 2.05 uIU/mL Normal 0.34-5.60 [facility] Comment on above: Order Comment: TSH3 with Reflex canceled. TSH3 ordered. Performed By: #### 0 0121, 18254, 33833, 85568, 11698 #### [facility] [address] CBC With Platelet No Differe ntialon 03-04-2018 Erythrocyte distribution width Auto Ratio (RBC) 13.9 % Normal 11.5-14.5 [facility] Erythrocytes (RBC) 5.34 10*6/uL Normal 4.70-6.10 [facility] Hematocrit (HCT) 49.8 % Normal 42.0-52.0 [facility] Hemoglobin mass conc (Bld) 16.4 g/dL Normal 14.0-18.0 [facility] MCH 30.8 pg Normal 27.0-31.3 [facility] MCHC mass conc (RBC) 33.0 % Normal 33.0-37.0 [facility] MCV 93.3 fL Normal 80.0-100.0 [facility] Platelets 281 10*3/uL Normal 130-400 [facility] WBC (Leukocytes) 9.3 10*3/uL Normal 4.8-10.8 [facility] Comprehensive Metabolic Pane gian 03-04-2018 Alanine aminotransferase (ALT) 20 U/L Normal 0-41 [facility] Albumin 4.6 g/dL Normal 3.9-4.9 [facility] Alkaline phosphatase (ALP) 56 U/L Normal 35-104 [facility] Anion gap 18 mmol/L Critically high 7-13 [facility] Aspartate aminotransferase (AST) 18 U/L Normal 0-40 [facility] Bilirubin (total) 0.7 mg/dL Normal 0.0-1.2 [facility] Calcium 9.4 mg/dL Normal 8.6-10.2 [facility] Chloride 103 mmol/L Normal 98-107 [facility] CO2 20 mmol/L Low 22-29 [facility] Creatinine 0.78 mg/dL Normal 0.70-1.20 [facility] eGFR (black) mL/min/{1.73_m2} Normal >60 [facility] Comment on above: Result Comment: >60 mL/min/1.73m2 EGFR, calc. for ages 18 and older using theMDRD formula (not corrected for weight), is valid for stablerenal function. eGFR (MDRD) mL/min/{1.73_m2} Normal >60 [facility] Comment on above: Result Comment: >60 mL/min/1.73m2 EGFR, calc. for ages 18 and older using theMDRD formula (not corrected for weight), is valid for stablerenal function. Globulin 2.7 g/dL Normal 2.3-3.5 [facility] Glucose mass conc 91 mg/dL Normal 74-109 [facility] Potassium molar conc 4.1 mmol/L Normal 3.5-5.1 [facility] Protein 7.3 g/dL Normal 6.4-8.1 [facility] Sodium 141 mmol/L Normal 132-144 [facility] Urea nitrogen 15 mg/dL Normal 6-20 [facility] Hemoglobin A1con 03-04-2018 Hemoglobin A1c/Hemoglobin.total mass fraction (Bld) 5.5 % Normal 4.8-5.9 [facility] Lipid Panelon 03-04-2018 Cholesterol 167 mg/dL Normal 0-199 [facility] Comment on above: Result Comment: ATP III Cholesterol classification is Desirable. HDL Cholesterol 47 mg/dL Normal 40-59 [facility] Comment on above: Result Comment: ATP III HDL Cholesterol Classification is Desirable.Expected Values:Males: >55 = No Risk 35-55 = Moderate Risk <35 = High RiskFemales: >65 = No Risk 45-65 = Moderate Risk <45 = High RiskNCEP Guidelines: Third Report January 2001>59 = negative risk factor for CHD<40 = major risk factor for CHD LDL Cholesterol 99 mg/dL Normal 0-129 [facility] Comment on above: Result Comment: ATP III LDL Classification is Optimal. Triglyceride 105 mg/dL Normal 0-200 [facility] Comment on above: Result Comment: ATP III Triglycerides Classification is Normal. Prostate Specific Ag Screeno n 03-04-2018 Prostate Specific Ag Screen 2.25 ng/mL Normal 0.00-3.89 [facility] Comment on above: Result Comment: When the Total PSA is between 3.00 and 10.00 ng/mL, considerrequesting a Free PSA to aid in diagnosis. TSH w/out Reflexon 8 Thyroid stimulating hormone (TSH) 2.550 uIU/mL Normal 0.270-4.20 [facility] Thyroxine Freeon 03-04-2018 Thyroxine Free 1.54 ng/dL Normal 0.93-1.70 [facility] Vital Signs Date Time Vital Sign Value Performing Clinician Faci litisabela 03-21-2019 15:41-0400 Respiratory rate 16 /min TITUS VILLEGAS [facility] Comment on above: Performed By: #### 0 0121, 91131, 25807, 06022, 24842 #### [facility] [address] [place] [address], [facility] 03-21-2019 06:18-0400 Respiratory rate 16 /min TITUS VILLEGAS [facility] Comment on above: Performed By: #### 0 0121, 74526, 45944, 47133, 12802 #### [facility] [address] [place] [address], [facility] 03-20-2019 15:18-0400 Respiratory rate 16 /min TITUS VILLEGAS [facility] Comment on above: Performed By: #### 0 0121, 26404, 05039, 56478, 55088 #### [facility] [address] [place] [address], [facility] 03-20-2019 06:10-0400 Respiratory rate 16 /min TITUS VILLEGAS [facility] Comment on above: Performed By: #### 0 0121, 12191, 87168, 54316, 46526 #### [facility] [address] [place] [address], [facility] 03-20-2019 01:22-0400 Respiratory rate 16 /min TITUS HOY [facility] Comment on above: Performed By: #### 0 0121, 48614, 90451, 39344, 68965 #### [facility] [address] [place] [address], [facility] 03-19-2019 22:02-0400 Respiratory rate 16 /min TITUS HOY [facility] Comment on above: Performed By: #### 5 7307 #### [facility] [address] [place] [address], [facility] 03-19-2019 20:06-0400 Respiratory rate 16 /min TITUS HOY [facility] Comment on above: Performed By: #### 8 4511, 77502 ####[facility] 03-19-2019 18:48-0400 Respiratory rate 16 /min TITUS HOY [facility] Comment on above: Order Comment: R/O P ulmonary Edema Performed By: #### 8 4511, 60033 ####[facility] Encounters Encounter Date Encounter Type Care Provider Facility Start: 03-26-2024 End: 03-26-2024 ambulatory [facility] Start: 02-28-2024 End: 02-28-2024 ambulatory [facility] Start: 01-24-2024 End: 01-24-2024 ambulatory [facility] Start: 10-23-2023 End: 10-23-2023 ambulatory [facility] Start: 04-08-2023 End: 04-08-2023 ambulatory [facility] Start: 02-05-2023 End: 02-06-[address] VIET SALAS Facility:[facility] Start: 12-19-2022 End: 12-20-[address] VIET SALAS Facility:[facility] Start: 11-09-2022 End: 11-10-[address] VIET SALAS Facility:[facility] Start: 09-14-2022 End: 09-15-2022 ambulatory KAISTEVE RUFFIN Facility:[facility] Start: 06-27-2022 End: 06-28-2022 ambulatory [...] abnormal findings DR TITUS VILLEGAS . [facility] Start: 04-05-2022 End: 04-06-[address] TITUS VILLEGAS . Facility:[facility] Start: 04-05-2022 End: 04-06-2022 Encounter for general adult medical examination without abnormal findings DR TITUS VILLEGAS . Facility:[facility] Start: 03-08-2022 End: 03-09-[address] MELIDA CUELLAR Facility:[facility] Start: 05-12-2019 End: 05-13-2019 Patient encounter procedure ILAN DANIELSON Facility:[facility] Start: 03-14-2019 End: 03-27-2019 Evaluation and management of inpatient TITUS VILLEGAS Facility:[facility] Procedures Date Procedure Procedure Detail Performing Clinician Start: 04-05-[address] MELIDA CUELLAR Comment on above: Performed By: #### P [facility] ####[facility] [id number] [place], [place] [address]MlGabino Beckham Start: 03-19-2019 DESTRUCTION OF CONDU CTION [...] on above: Performed By: #### 0 0121, 97640, 69345, 70385, 39633 #### [facility] [address] [place] [address], [facility] Start: 03-16-2019 MEASURE CARDIAC SAMP L \T\ PRESSURE, BILATERAL, PERC KRYS DAY Start: 03-16-2019 FLUOROSCOPY OF LEFT HEART USING OTHER CONTRAST KRYS DAY Start: 03-16-2019 FLUOROSCOPY OF MULTI PLE CORONARY ARTERIES USING OTH CONTRAST KRYS DAY Start: 03-16-2019 Mandaen of Cardi ac Rhythm, Single ILAN DANIELSON Payers Date Payer Category Payer Unknown [id number] 2.16.8 [id number] 1965 Unknown [id number] 2.16.8 [id number] 1965 Unknown [id number] 2.16.84 0.1.209081.3.579.2.593 1965 Unknown [id number] 2.16.84 0.1.468668.3.579.2.593 1965 Unknown [id number] 2.16.84 0.1.925837.3.579.2.593 1965 Unknown [id number] 2.16.84 0.1.608386.3.579.2.593 1965 Unknown [id number] 2.16.84 0.1.864928.3.579.2.593 1965 Unknown [id number] 2.16.84 0.1.722075.3.579.2.593 1964 Unknown [id number] 2.16.84 0.1.392940.3.579.2.593 1965 Unknown [id number] 2.16.84 0.1.188186.3.579.2.593 1965 Unknown [id number] 2.16.84 0.1.723909.3.579.2.593 1964 Unknown [id number] 2.16.84 0.1.901702.3.579.2.593 1964 Unknown [id number] 2.16.84 0.1.584060.3.579.2.593 1965 Unknown [id number] 2.16.84 0.1.890897.3.579.2.593 1965 Unknown [id number] 2.16.84 0.1.679279.3.579.2.593 1964 Unknown [id number] 2.16.84 0.1.237498.3.579.2.593 1965 Unknown [id number] 2.16.84 0.1.141439.3.579.2.593 1965 Unknown [id number] 2.16.84 0.1.527211.3.579.2.593 1960 Self-pay 1960 Unknown [id number] Progress note 03-26-2024 Note Date & Type Note Facility 03-26-2024 Note [place] [facility] - [facility] Subjective Tracie Crain is a 58 y.o. year old male patient being seen for follow up GERMAN and [facility]. Patient Active Problem List Diagnosis Right-sided heart [...] venous insufficiency Pulmonary venous congestion Chronic depression Pulmonary hypertension (CMS/HCC) Nonrheumatic tricuspid valve regurgitation Family History Problem Relation Name Age of [...] When compared with ECG of 21-MAR-2019 20:42, SC interval has decreased, Vent. rate has increased [...] 05/25/2019: He is seen in follow up. (more content not included)... [facility] Clinical Note 02-28-2024 Note Date & Type Note Facility 02-28-2024 Note Patient: Tracie Amaya gordy Procedure Information Date/Time: 02/28/24 1300 Procedure: Right heart cath Location: [facility] EXHIBIT PREPARATOR 3 / [facility] [facility] (Cath[facility] Providers: Viet Salas MD Clinical information reviewed: Allergies Meds Physical Exam Airway Mallampati: II TM distance: >3 FB Neck ROM: full Cardiovascular Rhythm: regular Rate: normal Dental Pulmonary Abdominal Anesthesia Plan ASA 3 other (Conscious sedation.) Anesthetic plan and risks discussed with patient. Use of blood products discussed with patient who consented to blood products. Additional Equipment Requests [facility] Procedure note 02-28-2024 Note Date & Type Note Facility 02-28-2024 Note Brief procedure note : GERMAN was performed without complications Findings: Normal left ventricle static function next Severely dilated left atrium and right atrium Mitral annulus ring is noted. Trivial to mild mitral regurgitation. Mild to moderate mitral stenosis with mean pressure gradient of 6 mmHg. Severe tricuspid regurgitation. Moderate pulmonary hypertension assuming right atrial pressure 8 mmHg. Full report to follow Dr. Brook Arenas [facility] Clinical Note 02-28-2024 Note Date & Type Note Facility 02-28-2024 Note Patient: Tracie kaminski Procedure Information Date/Time: 02/28/24 1300 Procedure: GERMAN Location: [facility] EXHIBIT PREPARATOR / [facility] VASCULAR LAB (Cath) Providers: Brook Arenas Clinical information reviewed: Allergies Meds Physical Exam Airway Mallampati: II Neck ROM: full Cardiovascular Rhythm: regular Rate: normal Dental Pulmonary Breath sounds clear to auscultation Abdominal - normal exam Anesthesia Plan ASA 3 CSE Anesthetic plan and risks discussed with patient. [facility] Progress note 01-24-2024 Note Date & Type Note Facility 01-24-2024 Note [place] [facility] - [facility] Subjective Tracie Crain is a 58 y.o. year old male patient being seen for Follow-up (3 month w/ echo done on 01/23/2024) Patient Active Problem List Diagnosis Right-sided heart [...] When compared with ECG of 21-MAR-2019 20:42, SC interval has decreased, Vent. rate has increased [...] last visit I increased lasix and metoprolol dosing (more content not included)... [facility] Progress note 10-23-2023 Note Date & Type Note Facility 10-23-2023 Note [place] [facility] - [facility] Subjective Tracie Crain is a 58 y.o. [...] When compared with ECG of 21-MAR-2019 20:42, SC interval has decreased, Vent. rate has increased [...] consistent with deco (more content not included)... [facility] Progress note 04-08-2023 Note Date & Type Note Facility 04-08-2023 Note [place] [facility] - [facility] Subjective Tracie Crain is a [...] When compared with ECG of 21-MAR-2019 20:42, SC interval has decreased, Vent. rate has increased [...] has been o (more content not included)... [facility] Clinical Note 11-29-2020 Note Date & [...] vaccine, inactivated - Not Given Patient Refuses [facility] Comment on above: Result Comment: Elec tronically Signed By: Tracie WOODY MD\Date and Time Signed: 11/29/20 14:05 EST Summary Purpose Family History No Family History Records FoundNo Family History Records FoundNo Family History Records FoundNo Family History Records FoundNo Family History Records Found Advance Directives No Advanced Directives Records FoundNo Advanced Directives Records FoundNo Advanced Directives Records FoundNo Advanced Directives Records FoundNo Advanced Directives Records Found Hospital Course Note MR#: [id number] I [facility] Pt. Name: [place] kar[place] Admitted: 03/14/2019 Discharged: 03/27/2019 Date of : 1965 Physician: Timbo Black MD DISCHARGE SUMMARY HISTORY: This is a 53-year-old male who was transferred from [facility] for further management of new-onset atrial fibrillation and systolic heart failure. Over the past 2 weeks, he had been having symptoms of lower extremity swelling. He denied chest pain and was very short of breath according to the . At [facility], he was noted to have severe pulmonary venous congestion and was transferred to [facility] after echocardiogram revealed reduced left ventricular [...] section and content) DATE CREATED AUTHOR 03/18/2018 [facility] DATE CREATED AUTHOR AUTHOR'S ORGANIZ ATION 03/02/[address] [facility] DATE CREATED AUTHOR AUTHOR'S ORGANIZ ATION 02/12/2021 [facility] DATE CREATED AUTHOR AUTHOR'S ORGANIZ ATION 02/10/2023 [facility] DATE CREATED AUTHOR AUTHOR'S ORGANIZ ATION 03/28/2024 [facility] FOR RECORDS PERTAINING TO PATIENTS WHO ARE [...] BE BASED ON THE PRIMARY CLINICAL RECORDS. [employer] provides no warranty or guarantee of the accuracy or completeness of information in this document.
[2024-04-24 12:47] LABS: Basophils Absolute Auto 0.1 10^3/uL (0.0-0.1); Eosinophils Absolute Auto 0.4 10^3/uL (0.0-0.7); Eosinophils Percent Auto 4.3 % (0.9-7.0); Hemoglobin 14.3 g/dL (14.0-18.0); Immature Granulocytes Abs Auto 0.06 10^3/uL (0.00-0.03); Immature Granulocytes Pct Auto 0.6 % (0.0-0.5); Lymphocytes Absolute Auto 2.5 10^3/uL (1.2-3.8); Lymphocytes Percent Auto 26.1 % (20.5-60.0); Mean Corpuscular HGB Conc 31.8 g/dL (29.9-35.2); Mean Corpuscular Hemoglobin 29.3 pg (25.9-34.0); Mean Corpuscular Volume 92.2 fL (80.0-94.0); Mean Platelet Volume 9.7 fL (9.5-13.5); Monocytes Percent Auto 10.2 % (1.7-12.0); Neutrophils Absolute Auto 5.6 10^3/uL (1.4-6.5); Neutrophils Percent Auto 57.8 % (43.0-75.0); Platelet Count 234 10^3/uL (150-450); Red Blood Count 4.88 10^6/uL (4.70-6.10); Red Cell Distribution Width 13.4 % (11.0-15.0); White Blood Count 9.6 10^3/uL (4.0-11.0)
[2024-04-24 12:54] LABS: Anion Gap 12.5; BUN Creatinine Ratio 19.2; Calcium 8.8 mg/dL (8.5-10.1); Chloride 103 mmol/L (98-107); Estimated GFR (African America >60 (>=60); Estimated GFR (Non-African Ame 56 (>=60); Glucose 107 mg/dL (74-106); Potassium 3.5 mmol/L (3.5-5.1); Sodium 141 mmol/L (136-145)
== END 2024-04-24 12:09 | disposition home or self-care (01) ==
LOC: LAB 12:09
PROVIDERS: PCP Family Medicine; Visit Provider Internal Medicine Interventional Cardiology
DX: I50.32 Chronic diastolic (congestive) heart failure (principal); I50.812 Chronic right heart failure; Q21.10 Atrial septal defect, unspecified
CPT/HCPCS: 36415; 80048; 85025

== ENCOUNTER 2024-07-01 13:53 | Outpatient (RCR) | payer BC, SELFPAY | END 2024-08-04 12:00 | disposition home or self-care (01) | LOC: OT 13:53 | PROVIDERS: PCP Family Medicine; Visit Provider Internal Medicine Interventional Cardiology | DX: I89.0 Lymphedema, not elsewhere classified (principal) | CPT/HCPCS: 97140; 97167; 97535 ==

== ENCOUNTER 2024-10-15 12:55 | Outpatient (OUT) | payer BC, SELFPAY ==
[2024-10-15 13:23] LABS: Basophils Absolute Auto 0.1 10^3/uL (0.0-0.1); Basophils Percent Auto 1.1 % (0.2-2.0); Eosinophils Absolute Auto 0.3 10^3/uL (0.0-0.7); Eosinophils Percent Auto 3.2 % (0.9-7.0); Hematocrit 46.3 % (42.0-54.0); Hemoglobin 14.5 g/dL (14.0-18.0); Immature Granulocytes Abs Auto 0.05 10^3/uL (0.00-0.03); Immature Granulocytes Pct Auto 0.6 % (0.0-0.5); Lymphocytes Absolute Auto 2.2 10^3/uL (1.2-3.8); Lymphocytes Percent Auto 24.5 % (20.5-60.0); Mean Corpuscular HGB Conc 31.3 g/dL (29.9-35.2); Mean Corpuscular Hemoglobin 28.5 pg (25.9-34.0); Mean Platelet Volume 9.2 fL (9.5-13.5); Monocytes Absolute Auto 0.9 10^3/uL (0.3-0.8); Monocytes Percent Auto 10.3 % (1.7-12.0); Neutrophils Absolute Auto 5.4 10^3/uL (1.4-6.5); Neutrophils Percent Auto 60.3 % (43.0-75.0); Platelet Count 236 10^3/uL (150-450); Red Blood Count 5.09 10^6/uL (4.70-6.10); Red Cell Distribution Width 14.2 % (11.0-15.0); White Blood Count 8.9 10^3/uL (4.0-11.0)
[2024-10-15 14:16] LABS: Estimated Average Glucose 120 mg/dL; Glycohemoglobin A1C 5.8 % (4.5-6.2)
[2024-10-15 14:30] LABS: Alanine Aminotransferase 20 U/L (16-63); Albumin Level 3.8 g/dL (3.4-5.0); Alkaline Phosphatase 80 U/L (46-116); Anion Gap 10.9; Aspartate Amino Transferase 22 U/L (15-37); BUN Creatinine Ratio 18.6; Bilirubin Total 1.1 mg/dL (0.2-1.0); Calcium 9.4 mg/dL (8.5-10.1); Carbon Dioxide 31.9 mmol/L (21.0-32.0); Chloride 101 mmol/L (98-107); Chol HDL Ratio 3.2; Cholesterol 151 mg/dL (<=200); Estimated GFR (African America >60 (>=60 mL/min/1.73m^2); Estimated GFR (Non-African Ame >60 (>=60 mL/min/1.73m^2); Free T3 2.51 pg/mL (2.18-3.98); Globulin 3.8 g/dL; Glucose 102 mg/dL (74-106); HDL Cholesterol 47 mg/dL (40-60); Potassium 3.8 mmol/L (3.5-5.1); Sodium 140 mmol/L (136-145); Thyroid Stimulating Hormone 4.307 uIU/mL (0.358-3.740); Total Protein 7.6 g/dL (6.4-8.2); Triglycerides 75 mg/dL (<=150)
[2024-10-15 14:38] LABS: Prostate Specific Antigen Scrn 0.47 ng/mL (<=4.00)
== END 2024-10-15 12:56 | disposition home or self-care (01) ==
LOC: LAB 12:57
PROVIDERS: PCP Family Medicine; Visit Provider Family Medicine
DX: Z00.00 Encounter for general adult medical examination without abnormal findings (principal)
CPT/HCPCS: 36415; 80053; 80061; 83036; 84436; 84443; 84481; 85025; G0103

== ENCOUNTER 2024-10-16 15:28 | Outpatient (REF) | payer BC, SELFPAY ==
--- OUTSIDE RECORDS SUMMARY | 2024-10-16 15:47 | XMS_ITS | CCD ---
Author Organization [facility] Care Team Providers Care Door Technician Name Role Phone TITUS VILLEGAS Referring Unavailable SELF, REFERRED Primary Care Unavailable ANABELL, TIMBO Attending Unavailable JIAN SYED Admitting Unavailable RI Procedure Practitioner Unavailab KRYS [place] Surgeon Unavailable RI Procedure Practitioner Unavailab le ILAN CABA Surgeon Unavailable RI Procedure Practitioner Unavailab rishabh BLACK, TIMBO Surgeon Unavailable RI Procedure Practitioner Unavailab MAY [place] Surgeon Unavailable ILAN CABA Attending Unavailable AIME CBAAHRIK Admitting Unavailable ANABELL, TIMBO Referring Unavailable TITUS [...] HOY ., DR QURESHI Primary Care Unavailable LALYKAI Attending Unavailable LALY, KAI Admitting Unavailable MOUKARBEL, [...] Unavailable MOUKARBEL, VIET Referring Unavailable MOUKARBEL, VIET Referring Unavailable MOUKARBEL, VIET Attending Unavailable MOUKARBEL, VIET Admitting Unavailable MOUKARBEL, VIET Attending Unavailable MOUKARBEL, VIET Admitting Unavailable MOUKARBEL, VIET Referring Unavailable Problems Active Problems Problem Classification Problem Date Documented Da te Episodic/Chronic Cardiac dysrhythmias (2 sources) Paroxysmal atrial fibrillation; Translations: [Paroxysmal atrial fibrillation] Onset: 10-16-2022 Chronic Congestive heart failure; nonhypertensive (20 sources) Chronic systolic (congestive) heart failure; Translations: [Acute on chronic right heart failure] Onset: 06-27-2022 Chronic Heart valve disorders (3 sources) Rheumatic tricuspid insufficiency; Translations: [Nonrheumatic tricuspid (valve) insufficiency] Onset: 11-15-2022 Chronic Other diseases of veins and lymphatics (2 sources) Lymphedema, not elsewhere classified; Translations: [Lymphedema, not elsewhere classified] Onset: 06-26-2024 Chronic Pulmonary heart disease (2 sources) Pulmonary hypertension, unspecified; Translations: [Pulmonary hypertension, unspecified] Onset: 04-07-2024 Chronic Unclassified (1 source) Atrial septal defect, unspecified; Translations: [Atrial septal defect, unspecified] Onset: 04-07-2024 Past or Other Problems Problem Classification Problem [...] extremity] Onset: 2 Episodic Residual codes; unclassified (3 sources) Other specified postprocedural states; Translations: [OTH SPECIFIED POSTPROCEDURAL STATES] Onset: 3 Episodic Unclassified (1 source) Atrial septal defect, unspecified; Translations: [Atrial septal defect, unspecified] Onset: 4 Varicose veins of lower extremity (5 sources) Varicose veins of bilateral lower extremities with pain; Translations: [VARICOSE VNS UZIEL LOW EXTREM W/PAIN] Onset: 2 Episodic Results Test Name Value Interpretation Reference Range Facility Office Visiton 06-26-2024 Follow-up visit [id number] Tracie Crain 1965 M Date Provider Department Center 06/26/2024 VIET MARIA RUSLAN García [facility] Family History Problem Relation Age of Onset Atrial fibrillation Mother Alzheimer's disease Mother Family Status - Relation Status Age at Mother Level of Service:78163 [place] OFFICE/OUTPATIENT ESTABLISHED MOD MDM 30 MIN [facility] 3005-06-2024 Problem: Discharge Planning Goal: Discharge to home or other facility with appropriate resources Outcome: Progressing Flowsheets (Taken 05/06/2024814) Discharge to home or other facility with appropriate resources: Identify barriers to discharge with patient and caregiver Problem: Cardiovascular - Adult Goal: Maintains optimal cardiac output and hemodynamic stability Outcome: Progressing Flowsheets (Taken 05/06/2024814) Maintains optimal cardiac output and hemodynamic stability: Monitor blood pressure and heart rate Goal: Absence of cardiac dysrhythmias or at baseline Outcome: Progressing Flowsheets (Taken 05/06/2024814) Absence of cardiac dysrhythmias or at baseline: Monitor cardiac rate and rhythm Problem: Metabolic/Fluid and Electrolytes - Adult Goal: Electrolytes maintained within normal limits Outcome: Progressing Flowsheets (Taken 05/06/2024814) Electrolytes maintained within normal limits: Monitor labs and assess patient for signs and symptoms of electrolyte imbalances Goal: Hemodynamic stability and optimal renal function maintained Outcome: Progressing Flowsheets (Taken 05/06/2024814) Hemodynamic stability and optimal renal function maintained: Monitor labs and assess for signs and symptoms of volume excess or deficit Goal: Glucose maintained within prescribed range Outcome: Progressing Flowsheets (Taken 05/06/2024814) Glucose maintained within prescribed range: Monitor blood glucose as ordered The patient is Moderately Stable - Low risk of patient condition declining or worsening The patient's goals for the shift include comfort The clinical goals for the shift include VSS Normal [facility] 30 The patient is Moderately Stable - Low risk of patient condition declining or worsening The patient's goals for the shift include comfort/rest The clinical goals for the shift include VSS Problem: Cardiovascular - Adult Goal: Maintains optimal cardiac output and hemodynamic stability Outcome: Progressing Flowsheets (Taken 05/06/2024526) Maintains optimal cardiac output and hemodynamic stability: Monitor blood pressure and heart rate Problem: Metabolic/Fluid and Electrolytes - Adult Goal: Electrolytes maintained within normal limits Outcome: Progressing Flowsheets (Taken 05/06/2024526) Electrolytes maintained within normal limits: Monitor labs and assess patient for signs and symptoms of electrolyte imbalances Administer electrolyte replacement as ordered Problem: Metabolic/Fluid and Electrolytes - Adult Goal: Hemodynamic stability and optimal renal function maintained Outcome: Progressing Flowsheets (Taken 05/06/2024 0527) Hemodynamic stability and optimal renal function maintained: Monitor labs and assess for signs and symptoms of volume excess or deficit Normal [facility] BASIC METABOLIC PANELon 08-0 Anion gap [Moles/Vol] 13 mmol/L Normal 7-20 [facility] Comment on above: Performed By: #### L [id number] ####[facility] ([facility])[address] [place] [address] Calcium [Mass/Vol] 8.5 mg/dL Low 8.6-10.3 [facility] Comment on above: Performed By: #### L [id number] ####[facility] ([facility])[address] [place] [address] Chloride [Moles/Vol] 103 mmol/L Normal 98-107 [facility] Comment on above: Performed By: #### L [id number] ####[facility] ([facility])[address] [place] [address] CO2 [Moles/Vol] 25 mmol/L Normal 21-31 [facility] Comment on above: Performed By: #### L [id number] ####[facility] ([facility])[address] [place] [address] Creatinine [Mass/Vol] 0.91 mg/dL Normal 0.70-1.30 [facility] Comment on above: Performed By: #### L [id number] ####[facility] ([facility])[address] [place] [address] GLOMERULAR FILTRATION RATE ML/MIN/1.73 SQ M.PREDICTED 96.5 mL/min/1.73m*2 Normal >60.0 [facility] Comment on above: Result Comment: The [facility]???s estimated glomerular filtration rate (eGFR) will no longer include consideration of race in its calculation. The National Kidney Foundation???s eGFR Task Force developed new recommendations for the estimation of the glomerular filtration rate in the [place] They recommend immediate implementation of the new equation refit without the race variable in all laboratories because the calculation does not include race. In addition to not including race in the calculation and reporting, it included diversity in its development, and has acceptable performance characteristics and potential consequences that do not disproportionately affect any one group of individuals. Performed By: #### L [id number] ####[facility] ([facility])[address] [place] [address] Glucose [Mass/Vol] 83 mg/dL Normal 70-100 [facility] Comment on above: Performed By: #### L [id number] ####[facility] ([facility])[address] [place] [address] Potassium [Moles/Vol] 3.5 mmol/L Normal 3.5-5.1 [facility] Comment on above: Performed By: #### L [id number] ####[facility] ([facility])[address] [place] [address] Sodium [Moles/Vol] 137 mmol/L Normal 136-145 [facility] Comment on above: Performed By: #### L [id number] ####[facility] ([facility])[address] [place] [address] Urea nitrogen [Mass/Vol] 14 mg/dL Normal 7-25 [facility] Comment on above: Performed By: #### L [id number] ####[facility] ([facility])[address] [place] [address] UREA NITROGEN/CREATININE (MASS RATIO) IN SER/PLAS 15.4 Normal [facility] Comment on above: Performed By: #### L [id number] ####[facility] ([facility])[address] [place] [address] CBCon 05-06-2024 Erythrocyte distribution width (RBC) [Ratio] 13.7 % Normal 11.5-15.0 [facility] Comment on above: Performed By: #### L [id number] ####[facility] ([facility])[address] [place] [address] ERYTHROCYTE MEAN CORPUSCULAR HEMOGLOBIN CONCENTRATION (G/DL) BY AUTOMATED 32.1 g/dL Normal 32.0-35.0 [facility] Comment on above: Performed By: #### L [id number] ####[facility] ([facility])[address] [place] [address] Hematocrit (Bld) [Volume fraction] 43.0 % Normal 39.0-55.0 [facility] Comment on above: Performed By: #### L [id number] ####[facility] ([facility])[address] [place] [address] Hemoglobin (Bld) [Mass/Vol] 13.8 g/dL Normal 13.0-17.0 [facility] Comment on above: Performed By: #### L [id number] ####[facility] ([facility])[address] [place], [place] [address] MCH (RBC) [Entitic mass] 29.9 pg Normal 27.0-33.0 [facility] Comment on above: Performed By: #### L [id number] ####[facility] ([facility])[address] [place] [address] MCV (RBC) [Entitic vol] 93.3 fL Normal 82.0-98.0 [facility] Comment on above: Performed By: #### L [id number] ####[facility] ([facility])[address] [place] [address] PLATELETS (10*3/UL) IN BLOOD AUTOMATED COUNT 204 10*3/uL Normal 150-400 [facility] Comment on above: Performed By: #### L [id number] ####[facility] ([facility])[address] [place] [address] RBC (Bld) [#/Vol] 4.61 10*6/uL Normal 4.20-5.70 [facility] Comment on above: Performed By: #### L [id number] ####[facility] ([facility])[address] [place] [address] WBC (Bld) [#/Vol] 10.27 10*3/uL Normal 4.00-10.60 [facility] Comment on above: Performed By: #### L [id number] ####[facility] ([place])[address] [place] [address] DSon 05-06-2024 DS Admission Admitted 05/05/2024 for ASD Chronic right-sided congestive heart failure Discharge Diagnosis *ASD *Chronic right-sided congestive heart failure *atrial fibrillation *severe mitral valve regurgitation status post mitral valve repair, Maze procedure and exclusion of the left atrial appendage. Discharge Disposition Home or Self Care () Discharge Medications Your medication list CONTINUE taking these medications Instructions Last Dose Given Next Dose Due aspirin 81 mg EC tablet bumetanide 2 mg tablet Commonly known as: Bumex Take 1.5 tablets (3 mg) by mouth three times daily. ferrous sulfate 325 (65 Fe) MG tablet levothyroxine 50 mcg tablet Commonly known as: Synthroid, Levoxyl liothyronine 5 mcg tablet Commonly known as: Cytomel metoprolol succinate XL 50 mg 24 hr tablet Commonly known as: Toprol-XL Take 1 tablet (50 mg) by mouth once daily as directed. potassium chloride CR 20 mEq ER tablet Commonly known as: Klor-Con M20 Take 1 tablet (20 mEq) by mouth in the morning and at bedtime. Do not crush or chew. sertraline 50 mg tablet Commonly known as: Zoloft spironolactone 25 mg tablet Commonly known as: Aldactone Take 1 tablet (25 mg) by mouth three times daily. Activity No strenuous activity, no lifting greater than 10 pounds, or excessive stair or ladder climbing for next 3-4 days, May shower this evening, wash puncture sites first- do not immerse these under water x 3-4 days to prevent infection Diet Continue on the same type of diet and foods as you were eating before your admission. Drink plenty of water. Allergies Patient has no known allergies. Hospital Course Tracie Crain is a 59 y.o. male with ASD who presented yesterday for hemodynamic study and possible closure of the ASD. His prior history is significant for atrial fibrillation, normal coronary angiogram in 2019, severe mitral valve regurgitation status post mitral valve repair, Maze procedure and exclusion of the left atrial appendage. He had systolic heart failure with subsequent improvement in ventricular systolic function. PT was admitted overnight for hemodynamic monitoring and vascular access monitoring. Assessed at bedside, no acute events overnight. Denied chest pain, SOB, Orthopnea or palpitations. No bleeding issues overnight. Denied back or ABD pain, N/V/D or leg /groin pain. Procedure Performed: Right heart catheterization. Left heart catheterization. Access into the right common femoral artery and common femoral vein under ultrasound guidance. Access into the left common femoral vein under ultrasound guidance. Limited right common femoral angiogram. Deployment of 6F Proglide vascular closure device in the right and left common femoral veins. Limited right common femoral angiography: This showed access to be in the femoral artery with no obstructive lesions seen in the common femoral artery and its proximal branches. Impression/Findings: Mild to moderate elevation of left filling pressures. Moderate elevation of right filling pressures. Severe pulmonary hypertension. Normal cardiac output and cardiac index. Presence of significant [id number] shunt at the atrial septal level [The defect was identified by intracardiac echocardiography measuring 1.2 cm]. Controlled systemic hypertension. 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 Mildly elevated pulmonary vascular resistance. Balloon occlusion test of atrial septal defect performed showing significant rise in left-sided filling pressures indicating unfavorable outcome should the atrial septal defect be closed. Plan: Continue medical therapy. Follow up in Cardiology Clinic. Viet Salas MD Pertinent Physical Exam At Time of Discharge Physical Exam Vitals and nursing note reviewed. Constitutional: Appearance: He is obese. HENT: Head: Normocephalic. Eyes: Extraocular Movements: Extraocular movements intact. Pupils: Pupils are equal, round, and reactive to light. Cardiovascular: Rate and Rhythm: Normal rate and regular rhythm. Comments: B/L femoral, DP and PT pulses 3+ palpable B/L groin sites C/D/I with dressing intact, no bruit, hematoma, ecchymosis noted Pulmonary: Effort: Pulmonary effort is normal. Breath sounds: Normal breath sounds. Abdominal: General: Bowel sounds are normal. Palpations: Abdomen is soft. Musculoskeletal: Right lower leg: No edema. Left lower leg: No edema. Skin: General: Skin is warm and dry. Capillary Refill: Capillary refill takes less than 2 seconds. Neurological: General: No focal deficit present. Mental Status: He is oriented to person, place, and time. Mental status is at baseline. Psychiatric: Mood and Affect: Mood normal. Judgment: Judgment normal. Lab Results Labs Reviewed BASIC METABOLIC PANEL - Abnormal Result Value Sodium 137 Potassium 3.5 Chlori (more content not included)... [facility] NURSNOTEon 05-06-2024 NURSNOTE Discharge paperwork gone over and explained to pt and family member at this time. All questions answered at bedside. Pt and family denies further questions. Pt discharged. [facility] 30on 05-05-2024 30 Problem: Discharge Planning Goal: Discharge to home or other facility with appropriate resources Outcome: Progressing Flowsheets (Taken 05/05/20242099) Discharge to home or other facility with appropriate resources: Identify barriers to discharge with patient and caregiver Arrange for needed discharge resources and transportation as appropriate Identify discharge learning needs (meds, wound care, etc) Arrange for interpreters to assist at discharge as needed Problem: Cardiovascular - Adult Goal: Maintains optimal cardiac output and hemodynamic stability Outcome: Progressing Flowsheets (Taken 05/05/20242099) Maintains optimal cardiac output and hemodynamic stability: Monitor blood pressure and heart rate Monitor urine output and notify Licensed Independent Practitioner for values outside of normal range Assess for signs of decreased cardiac output Administer vasoactive medications as ordered Goal: Absence of cardiac dysrhythmias or at baseline Outcome: Progressing Flowsheets (Taken 05/05/20242099) Absence of cardiac dysrhythmias or at baseline: Monitor cardiac rate and rhythm Assess for signs of decreased cardiac output Administer antiarrhythmia medication and electrolyte replacement as ordered Problem: Metabolic/Fluid and Electrolytes - Adult Goal: Electrolytes maintained within normal limits Outcome: Progressing Flowsheets (Taken 05/05/20242099) Electrolytes maintained within normal limits: Monitor labs and assess patient for signs and symptoms of electrolyte imbalances Administer electrolyte replacement as ordered Monitor response to electrolyte replacements, including repeat lab results as appropriate Fluid restriction as ordered Goal: Hemodynamic stability and optimal renal function maintained Outcome: Progressing Flowsheets (Taken 05/05/20242099) Hemodynamic stability and optimal renal function maintained: Monitor labs and assess for signs and symptoms of volume excess or deficit Monitor intake, output and patient weight Monitor urine specific gravity, serum osmolarity and serum sodium as indicated or ordered Monitor response to interventions for patient's volume status, including labs, urine output, blood pressure (other measures as available) Encourage oral intake as appropriate Goal: Glucose maintained within prescribed range Outcome: Progressing Flowsheets (Taken 05/05/20242099) Glucose maintained within prescribed range: Monitor blood glucose as ordered Assess for signs and symptoms of hyperglycemia and hypoglycemia Administer ordered medications to maintain glucose within target range Assess barriers to adequate nutritional intake and initiate nutrition consult as needed The patient is Moderately Unstable - Medium risk of patient condition declining or worsening The patient's goals for the shift include comfort The clinical goals for the shift include stable hemodynamics Normal [facility] HPon 05-05-2024 History Of Present Illness Tracie Crain is a 59 y.o. male with ASD who presents for hemodynamic study and possible closure of the ASD. His prior history is significant for atrial fibrillation, normal coronary angiogram in 2019, severe mitral valve regurgitation status post mitral valve repair, Maze procedure and exclusion of the left atrial appendage. He had systolic heart failure with subsequent improvement in ventricular systolic function. He was found subsequent to the surgery to have atrial septal defect secundum type and was followed with medical therapy however continued to have significant evidence of right-sided volume overload due to [id number] shunting despite optimization of medical therapy. Past Medical History He has a past medical history of Atrial fibrillation (CMS/HCC), CHF (congestive heart failure) (CMS/HCC), GERD (gastroesophageal reflux disease), Heart valve disease, and Sleep apnea. Surgical History He has a past surgical history that includes Mitral valve repair; Hernia repair; and Cardioversion. Social History He reports that he has never smoked. He has never used smokeless tobacco. He reports that he does not currently use alcohol. No history on file for drug use. Allergies Patient has no known allergies. Medications Medications Prior to Admission Medication Sig Dispense Refill Last Dose aspirin 81 mg EC tablet Take 1 tablet by mouth in the morning. 05/05/2024 bumetanide (Bumex) 2 mg tablet Take 1.5 tablets (3 mg) by mouth three times daily. 405 tablet 3 05/04/2024 ferrous sulfate 325 (65 Fe) MG tablet Take 325 mg by mouth two times daily. 05/04/2024 levothyroxine (Synthroid, Levoxyl) 50 mcg tablet Take 1 tablet by mouth in the morning. 05/05/2024 liothyronine (Cytomel) 5 mcg tablet Take 5 mcg by mouth in the morning. 05/05/2024 metoprolol succinate XL (Toprol-XL) 50 mg 24 hr tablet Take 1 tablet (50 mg) by mouth once daily as directed. 90 tablet 3 05/04/2024 potassium chloride CR (Klor-Con M20) 20 mEq ER tablet Take 1 tablet (20 mEq) by mouth in the morning and at bedtime. Do not crush or chew. 180 tablet 3 05/04/2024 sertraline (Zoloft) 50 mg tablet Take 50 mg by mouth in the morning. 05/04/2024 spironolactone (Aldactone) 25 mg tablet Take 1 tablet (25 mg) by mouth three times daily. 270 tablet 3 05/04/2024 Review of Systems Cardiovascular: Positive for dyspnea on exertion and leg swelling. Respiratory: Positive for cough. All other systems reviewed and are negative. Physical Exam Constitutional: Appearance: He is well-developed. He is not ill-appearing. HENT: Head: Normocephalic and atraumatic. Nose: Nose normal. Eyes: General: No scleral icterus. Pupils: Pupils are equal, round, and reactive to light. Neck: Thyroid: No thyromegaly. Vascular: No JVD. Cardiovascular: Rate and Rhythm: Normal rate and regular rhythm. Pulses: Radial pulses are 2+ on the right side and 2+ on the left side. Heart sounds: Murmur heard. Systolic (LLSB) murmur is present with a grade of 1/6. No friction rub. No gallop. Pulmonary: Effort: Pulmonary effort is normal. No respiratory distress. Breath sounds: Normal breath sounds. No wheezing or rales. Chest: Chest wall: No tenderness. Abdominal: General: Bowel sounds are normal. There is no distension. Palpations: Abdomen is soft. Tenderness: There is no abdominal tenderness. Musculoskeletal: General: No swelling. Cervical back: Neck supple. Right lower le+ Pitting Edema present. Left lower le+ Pitting Edema present. Skin: General: Skin is warm and dry. Neurological: General: No focal deficit present. Mental Status: He is alert and oriented to person, place, and time. Psychiatric: Mood and Affect: Mood normal. Behavior: Behavior is cooperative. Judgment: Judgment normal. Last Recorded Vitals Blood pressure 118/74, pulse 87, resp. rate 17, SpO2 99 %. Relevant Results Right heart catheterization 02/28/2024: Hemodynamic Data: RA: 17 RV: 55/7, 19 PA: 55/25 (37) PCWP: 21 Qs: 4.73 Qsi: 1.75 Qp: 8.17 Qpi: 3.02 O2 Sat: PA sat: 74%, AO sat: 96%, PW sat: 96%, SVC sat: 56%, IVC sat: 65%, high RA sat: 65%, mid RA sat: 69%, low RA sat: 71%, RV sat: 74% BP: 102/61 (76) TP PVR: 2.0 Wood units/160 Metric units SVR: 12.5 Wood units/998 Metric units Impression/Findings: Moderate elevation of left filling pressures. Moderate elevation of right filling pressures. Moderate to severe pulmonary hypertension. Reduced cardiac output and cardiac index. Controlled systemic hypertension. Findings are consistent with post-capillary pulmonary hypertension with normal pulmonary vascular resistance. Evidence of atrial septal defect with significant left to right shunting across it. Plan: Diuretic therapy will be increased. Bumetanide will be increased from 2 mg 3 times daily to 3 mg 3 times daily. BMP in 1 week. Follow up in Cardiology Clinic. The patie (more content not included)... Normal [facility] NURSNOTEon 05-05-2024 NURSNOTE Report given to Caroline gonzalez RN from [facility] Any medications or safety alerts were reviewed. Any pending diagnostics and notifications were also reviewed, as well as any safety concerns or issues, abnormal labs, abnormal imagining, and abnormal assessment findings. Questions were answered. Normal [facility] NURSNOTE Dr. Lee notified of ACT being 231. Dr. Lee verbally ordered transfer to ICU and is contacting Dr. Salas to notify him of elevated ACT, and to discuss further action. Normal [facility] NURSNOTE CHG wipes and betadi ne nasal swabs completed. Normal [facility] NURSNOTE This report has been cancelled. Normal [facility] POCT ACTIVATED CLOTTING TIME UNSOLICITED RESULTSon 05-05-2024 POC ACTIVATED CLOTTING TIME 154 sec High 82-152 [facility] Comment on above: Performed By: #### L [id number] ####[facility]OSP[facility] LAB (BEAKER)[address] [place] [address] Letter (Out)on 04-14-2024 Letter (Out) [id number] Tracie Crain 1965 [facility] Provider Department Center 04/14/2024 None-None [facility] Family History Problem Relation Age of Onset Atrial fibrillation Mother Alzheimer's disease Mother Family Status - Relation Status Age at Mother [facility] Letter (Out)on 04-10-2024 Letter (Out) [id number] Tracie Crain J 1965 [facility] Provider Department [place] 04/10/2024 None-None [facility] Family History Problem Relation Age of Onset Atrial fibrillation Mother Alzheimer's disease Mother Family Status - Relation Status Age at Mother [facility] Letter (Out)on 04-08-2024 Letter (Out) [id number] Tracie Crain 1965 [facility] Provider Department [place] 04/08/2024 None-None [facility] Family History Problem Relation Age of Onset Atrial fibrillation Mother Alzheimer's disease Mother Family Status - Relation Status Age at Mother [facility] Office Visiton 03-26-2024 Follow-up visit [id number] Tracie Crain 1965 [facility] Provider Department Center 03/26/2024 VIET MARIA [facility] Family History Problem Relation Age of Onset Atrial fibrillation Mother Alzheimer's disease Mother Family Status - Relation Status Age at Mother Level of Service:32347 [place] OFFICE/OUTPATIENT ESTABLISHED HIGH MDM 40 MIN [facility] 02-28-2024 H&P reviewed. The patient was examined and there are no changes to the H&P. [facility] Cardiology [facility] I have seen and examined [...] When compared with ECG of 21-MAR-2019 20:42, RI interval has decreased, Vent. rate has increased [...] posterior mitral (more content not included)... Normal [facility] NURSNOTEon 02-28-2024 NURSNOTE RN educated pt on d/ c instructions. RN encouraged pt to voice any questions or concerns. Pt verbalizes no questions or concerns at this time. Pt was wheeled off of unit with all of belongings. Normal [facility] NURSNOTE Bedside swallow stud y completed and passed. [facility] Office Visiton 01-24-2024 Follow-up visit [id number] Tracie Crain 1965 M Date Provider Department Center 01/24/2024 VIET MARIA Family History Problem Relation Age of Onset Atrial fibrillation Mother Alzheimer's disease Mother Family Status - Relation Status Age at Mother Level of Service:37676 RI OFFICE/OUTPATIENT ESTABLISHED HIGH [facility] 40 MIN Reason for Visit and Comments: Follow-up [399627] - 3 month w/ echo done on 01/23/2024 Normal [facility] Office Visiton 10-23-2023 Follow-up visit [id number] Tracie Crain 1965 M Date Provider Department Center 10/23/2023 VIET MARIA [facility] Family History Problem Relation Age of Onset Atrial fibrillation Mother Alzheimer's disease Mother Family Status - Relation Status Age at Mother Level of Service:26644 RI OFFICE/OUTPATIENT ESTABLISHED MOD MDM 30 MIN Normal [facility] ECHOCARDIO M/2D COMPLETEon 0 02-05-2023 ECHOCARDIO M/2D COMPLETE Patient: TRACIE CRAIN. Exam Date: 02/05/2023 : 1965 Gender:M Ordering : DR VIET SALAS M.D. Admission #: [id number] Family : Order #: [id number] CLICK HERE TO VIEW EXAM ECHOCARDIOGRAM REPORT [...] Jenkins M.D. on 02/05/2023 at 16:31 Normal [facility] BNPon 12-19-2022 Natriuretic peptide B (Bld) [Mass/Vol] 859.0 pg/mL Normal <=900.0 [facility] Comment on above: Performed By: #### B MP, BNP #### [facility] Laboratory [address] [place] [address] Dr. Leonie Beckham PROF CHEM 8 (BAS METB)on Anion gap [Moles/Vol] 9.9 mmol/L Normal [facility] Comment on above: Performed By: #### B MP, BNP #### [facility] [address] [place] [address] Dr. Leonie Beckham Calcium [Mass/Vol] 9.4 mg/dL Normal 8.5-10.1 [facility] Comment on above: Performed By: #### B MP, BNP #### [facility] [address] [place] [address] Dr. Leonie Beckham Chloride [Moles/Vol] 102 mmol/L Normal 98-107 [facility] Comment on above: Performed By: #### B MP, BNP #### [facility] [address] [place] [address] Dr. Leonie Beckham CO2 [Moles/Vol] 32.0 mmol/L Normal 21.0-32.0 [facility] Comment on above: Performed By: #### B MP, BNP #### [facility] [address] [place] [address] Dr. Leonie Beckham Creatinine [Mass/Vol] 1.17 mg/dL Normal 0.70-1.30 [facility] Comment on above: Performed By: #### B MP, BNP #### [facility] [address] [place] [address] Dr. Leonie Beckham EGFR-AF KAZAKH >60 Normal >=60 [facility] Comment on above: Performed By: #### B MP, BNP #### [facility] [address] [place] [address] Dr. Leonie Beckham EGFR-NON AF KAZAKH >60 Normal >=60 [facility] Comment on above: Performed By: #### B MP, BNP #### [facility] [address] [place] [address] Dr. Leonie Beckham Glucose [Mass/Vol] 106 mg/dL Normal 74-106 [facility] Comment on above: Performed By: #### B MP, BNP #### [facility] [address] [place] [address] Dr. Leonie Beckham Potassium [Moles/Vol] 3.9 mmol/L Normal 3.5-5.1 [facility] Comment on above: Performed By: #### B MP, BNP #### [facility] [address] [place] [address] Dr. Leonie Beckham Sodium [Moles/Vol] 140 mmol/L Normal 136-145 [facility] Comment on above: Performed By: #### B MP, BNP #### [facility] [address] [place] [address] Dr. Leonie Beckham Urea nitrogen [Mass/Vol] 25.0 mg/dL Critically high 7.0-18.0 [facility] Comment on above: Performed By: #### B MP, BNP #### [facility] [address] [place] [address] Dr. Leonie Beckham Urea nitrogen/Creatinine [Mass ratio] 21.4 mg/mg Normal [facility] Comment on above: Performed By: #### B MP, BNP #### [facility] [address] [place], [place] [address] Dr. Leonie Beckham ECHOCARDIO M/2D COMPLETEon 0 11-09-2022 ECHOCARDIO M/2D COMPLETE Patient: TRACIE CRAIN Exam Date: 11/09/2022 : 1965 Gender:M Ordering : DR VIET SALAS M.D. Admission #: [id number] Family : TITUS VILLEGAS . Order #: [id number] CLICK HERE TO VIEW EXAM ECHOCARDIOGRAM REPORT [...] Salas M.D. on 11/09/2022 at 16:31 Normal [facility] PROF CHEM 8 (BAS METB)on Anion gap [Moles/Vol] 8.0 mmol/L Normal [facility] Comment on above: Performed By: #### B MP #### [facility] [address] [place] [address] Dr. Leonie Beckham Calcium [Mass/Vol] 8.6 mg/dL Normal 8.5-10.1 [facility] Comment on above: Performed By: #### B MP #### [facility] [address] [place] [address] [address] Leonie Beckham Chloride [Moles/Vol] 102 mmol/L Normal 98-107 [facility] Comment on above: Performed By: #### B MP #### [facility] [address] [place] [address] [address] Leonie Beckham CO2 [Moles/Vol] 31.5 mmol/L Normal 21.0-32.0 [facility] Comment on above: Performed By: #### B MP #### [facility] [address] [place] [address] [address] Leonie Beckham Creatinine [Mass/Vol] 1.13 mg/dL Normal 0.70-1.30 [facility] Comment on above: Performed By: #### B MP #### [facility] [address] [place] [address] Dr. Leonie Beckham EGFR-AF KAZAKH >60 Normal >=60 [facility] Comment on above: Performed By: #### B MP #### [facility] [address] [place] [address] Dr. Leonie Beckham EGFR-NON AF KAZAKH >60 Normal >=60 [facility] Comment on above: Performed By: #### B MP #### [facility] [address] [place] [address] [address] Leonie Beckham Glucose [Mass/Vol] 100 mg/dL Normal 74-106 [facility] Comment on above: Performed By: #### B MP #### [facility] [address] [place] [address] Dr. Leonie Beckham Potassium [Moles/Vol] 3.5 mmol/L Normal 3.5-5.1 [facility] Comment on above: Performed By: #### B MP #### [facility] [address] [place] [address] [address] Leonie Beckham Sodium [Moles/Vol] 138 mmol/L Normal 136-145 [facility] Comment on above: Performed By: #### B MP #### [facility] [address] [place] [address] [address] Leonie Beckham Urea nitrogen [Mass/Vol] 24.0 mg/dL Critically high 7.0-18.0 [facility] Comment on above: Performed By: #### B MP #### [facility] [address] [place], [place] [address] Dr. Leonie Beckham Urea nitrogen/Creatinine [Mass ratio] 21.2 mg/mg Normal [facility] Comment on above: Performed By: #### B MP #### [facility] [address] [place], [place] [address] Dr. Leonie Beckham ECHOCARDIO M/2D COMPLETEon 0 06-27-2022 ECHOCARDIO M/2D COMPLETE Patient: TRACIE CRAIN Exam Date: 06/27/2022 : 1965 Gender:M Ordering : [facility]IN [facility] Admission #: [id number] Family : TITUS VILLEGAS . Order #: [id number] CLICK HERE TO VIEW EXAM ECHOCARDIOGRAM REPORT [...] Viet Salas M.D. on 06/27/2022 at 18:23 [facility] CONSULT FOLLOWUPon 2021 VC CONSULT FOLLOWUP Patient: TRACIE CRAIN Exam Date: 06/13/2022 : 1965 Gender:M Ordering : DR MELIDA CUELLAR M.D. Admission #: [id number] Family : Order #: [id number] CLICK HERE TO VIEW EXAM RADIOLOGY REPORT [...] Cuellar MD on 06/13/2022 at 14:59 Normal [facility] VC EXT VENOUS RT LIMITEDon 0 06-13-2022 VC EXT VENOUS RT LIMITED Patient: TRACIE CRAIN Exam Date: 06/13/2022 : 1965 Gender:Eduin Ordering : DR MELIDA CUELLAR M.D. Admission #: [id number] Family : Order #: [id number] CLICK HERE TO VIEW EXAM RADIOLOGY REPORT [...] veins in the medial right leg. Associated golf club maker distal medial also thrombosed 3.1 mm from [...] Cuellar MD on 06/13/2022 at 15:42 Normal [facility] VC INJ FOAM SCLERO W US MLTI on 06-07-2022 VC INJ FOAM SCLERO W US MLTI Patient: TRACIE CRAIN Exam Date: 06/07/2022 : 1965 Gender:M Ordering : DR MELIDA CUELLAR M.D. Admission #: [id number] Family : Order #: [id number] CLICK HERE TO VIEW EXAM RADIOLOGY REPORT [...] for (more content not included)... Normal [facility] VC CONSULT FOLLOWUPon 2021 VC CONSULT FOLLOWUP Patient: TRACIE CRAIN Exam Date: 06/01/2022 : 1965 Gender:M Ordering : DR MELIDA CUELLAR M.D. Admission #: [id number] Family : Order #: [id number] CLICK HERE TO VIEW EXAM RADIOLOGY REPORT [...] Melida Cuellar MD on 06/01/2022 at 09:48 [facility] VC EXT VENOUS LT LIMITEDon 0 06-01-2022 VC EXT VENOUS LT LIMITED Patient: TRACIE CRAIN Exam Date: 06/01/2022 : 1965 Gender:M Ordering : DR MELIDA CUELLAR M.D. Admission #: [id number] Family : Order #: [id number] CLICK HERE TO VIEW EXAM RADIOLOGY REPORT [...] 1.4s reflux. *Exam performed in accordance with [facility] practice guidelines- Peripheral venous ultrasound, December 24, 2009. 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 Admission #: [id number] Family : Order #: [id number] CLICK HERE TO VIEW EXAM RADIOLOGY REPORT [...] Lynda Aguilar M.D. on 05/25/2022 at 11:44 [facility] VC CONSULT FOLLOWUPon 2021 VC CONSULT FOLLOWUP Patient: TRACIE CRAIN Exam Date: 05/14/2022 : 1965 Gender:M Ordering : DR MELIDA CUELLAR M.D. Admission #: [id number] Family : Order #: [id number] CLICK HERE TO VIEW EXAM RADIOLOGY REPORT [...] Aguilar M.D. on 05/14/2022 at 09:41 Normal [facility] VC EXT VENOUS RT LIMITEDon 0 05-14-2022 VC EXT VENOUS RT LIMITED Patient: TRACIE CRAIN Exam Date: 05/14/2022 : 1965 Gender:M Ordering : DR MELIDA CUELLAR M.D. Admission #: [id number] Family : Order #: [id number] CLICK HERE TO VIEW EXAM RADIOLOGY REPORT [...] Aguilar M.D. on 05/14/2022 at 09:35 Normal [facility] ENDOVENOUS ABL PERFORATIN G RTon 05-10-2022 ENDOVENOUS ABL PERFORATING RT Patient: TRACIE CRAIN Exam Date: 05/10/2022 : 1965 Gender:M Ordering : DR MELIDA CUELLAR M.D. Admission #: [id number] Family : Order #: [id number] CLICK HERE TO VIEW EXAM RADIOLOGY REPORT PROCEDURE: VEIN CENTER ENDOVENOUS ABLATION FOR VEIN RIGHT GREAT SAPHENOUS VEIN COMPARISON: None. INDICATIONS: Pain co-occurrent and due to varicose veins of bilateral legs I83.813 OPERATIVE REPORT: Diagnosis: Superficial venous reflux, incompetent perforating veins Procedure: Endovenous laser ablation of the left golf club maker(s) Procedure: The patient was positioned supine on [...] Cuellar MD on 05/10/2022 at 10:50 Normal [facility] VC CONSULT FOLLOWUPon 2021 VC CONSULT FOLLOWUP Patient: TRACIE CRAIN Exam Date: 05/04/2022 : 1965 Gender:M Ordering : DR MELIDA CUELLAR M.D. Admission #: [id number] Family : Order #: [id number] CLICK HERE TO VIEW EXAM RADIOLOGY REPORT [...] Aguilar M.D. on 05/04/2022 at 08:38 Normal [facility] VC EXT VENOUS LT LIMITEDon 0 05-04-2022 VC EXT VENOUS LT LIMITED Patient: TRACIE CRAIN. Exam Date: 05/04/2022 : 1965 Gender:M Ordering : DR MELIDA CUELLAR M.D. Admission #: [id number] Family : Order #: [id number] CLICK HERE TO VIEW EXAM RADIOLOGY REPORT [...] Aguilar M.D. on 05/04/2022 at 08:32 Normal [facility] VC ENDOVENOUS ABL 1ST V LTon 04-27-2022 VC ENDOVENOUS ABL 1ST V LT Patient: TRACIE CRAIN Exam Date: 04/27/2022 : 1965 Gender:Eduin Ordering : DR MELIDA CUELLAR M.D. Admission #: [id number] Family : Order #: [id number] CLICK HERE TO VIEW EXAM RADIOLOGY REPORT [...] M.D. on 04/27/2022 at 10:32 Normal [facility] CBC AUTO DIFFon 04-05-2022 BASO # 0.1 103/ul Normal 0.0-0.1 [facility] Comment on above: Performed By: #### C BC ####[facility] [address] [place] [address]Dr. Leonie Beckham Basophils/100 WBC (Bld) 1.2 % Normal 0.2-2.0 [facility] Comment on above: Performed By: #### C BC ####[facility] [address] [place] [address]Dr. Leonie Beckham EO # 0.3 103/ul Normal 0.0-0.7 [facility] Comment on above: Performed By: #### C BC ####[facility] [address] [place] [address]Dr. Leonie Beckham Eosinophils/100 WBC (Bld) 3.9 % Normal 0.9-7.0 [facility] Comment on above: Performed By: #### C BC ####[facility] [address] [place] [address]Dr. Leonie Beckham Erythrocyte distribution width (RBC) [Ratio] 13.2 % Normal 11.0-15.0 [facility] Comment on above: Performed By: #### C BC ####[facility] [address] [place] [address]Dr. Leonie Beckham Hematocrit (Bld) [Volume fraction] 43.5 % Normal 42.0-54.0 [facility] Comment on above: Performed By: #### C BC ####[facility] [address] [place] [address]Dr. Leonie Beckham Hemoglobin (Bld) [Mass/Vol] 13.9 g/dL Critically low 14.0-18.0 [facility] Comment on above: Performed By: #### C BC ####[facility] [address] [place] [id number]. Leonie Beckham IG # 0.03 10e3/ul Normal 0.00-0.03 [facility] Comment on above: Performed By: #### C BC ####[facility] [address] [place] [address]Dr. Leonie Beckham IG % 0.4 % Normal 0.0-0.5 [facility] Comment on above: Performed By: #### C BC ####[facility] [address] [place] [address]Dr. Kaleighjacob Chapincito LYMPH # 2.0 103/ul Normal 1.2-3.8 [facility] Comment on above: Performed By: #### C BC ####[facility] [address] [place] [address]Dr. Leonie Beckham Lymphocytes/100 WBC (Bld) 25.0 % Normal 20.5-60.0 [facility] Comment on above: Performed By: #### C BC ####[facility] [address] [place] [address]Dr. Kaleighjacob Beckham MANUAL DIFF REQ NO Normal [facility] Comment on above: Performed By: #### C BC ####[facility] [address] [place] [address]Dr. Leonie Beckham MCH (RBC) [Entitic mass] 30.2 pg Normal 25.9-34.0 [facility] Comment on above: Performed By: #### C BC ####[facility] [address] [place] [address]Dr. Leonie Beckham MCHC (RBC) [Mass/Vol] 32.0 g/dL Normal 29.9-35.2 [facility] Comment on above: Performed By: #### C BC ####[facility] [address] [place] [address]Dr. Leonie Beckham MCV (RBC) [Entitic vol] 94.4 fL Critically high 80.0-94.0 [facility] Comment on above: Performed By: #### C BC ####[facility] [address] [place] [address]Dr. Leonie Beckham MONO # 1.0 103/ul Critically high 0.3-0.8 [facility] Comment on above: Performed By: #### C BC ####[facility] [address] [place] [address]Dr. Leonie Beckham Monocytes/100 WBC (Bld) 12.0 % Normal 1.7-12.0 [facility] Comment on above: Performed By: #### C BC ####[facility] [address] [place] [address]Dr. Leonie Beckham NEUT # 4.6 103/ul Normal 1.4-6.5 [facility] Comment on above: Performed By: #### C BC ####[facility] [address] [place] [address]Dr. Leonie Beckham Neutrophils/100 WBC (Bld) 57.5 % Normal 43.0-75.0 [facility] Comment on above: Performed By: #### C BC ####[facility] [address] [place] [address]Dr. Leonie Beckham Platelet mean volume (Bld) [Entitic vol] 9.4 fL Critically low 9.5-13.5 [facility] Comment on above: Performed By: #### C BC ####[facility] [address] [place] [id number]. Leonie Beckham PLT 203 103/ul Normal 150-450 [facility] Comment on above: Performed By: #### C BC ####[facility] [address] [place] [address]Dr. Leonie Beckham RBC 4.61 106/ul Critically low 4.70-6.10 [facility] Comment on above: Performed By: #### C BC ####[facility] [address] [place], [place] [address]Dr. Leonie Beckham WBC 8.0 103/ul Normal 4.0-11.0 [facility] Comment on above: Performed By: #### C BC ####[facility] [address] [place], [place] [address]Dr. Leonie Beckham FREE T3on 04-05-2022 FREE T3 2.54 pg/mlL Normal 2.18-3.98 [facility] Comment on above: Performed By: #### T SH, LIPID, CMP, T4, FT3 ####[facility] [address] [place] [id number]. Leonie Beckham GLYCOHEMOGLOBIN A1Con 2021 ADA RECOMMENDATION SEE BELOW Normal [facility] Comment on above: Result Comment: ADA RECOMMENDED LIMIT 4.0 - 6.0 ADA THERAPEUTIC TARGET < 7.0 ACTION SUGGESTED > 7.0 Performed By: #### A 1C ####[facility] [address] [place] [address]Dr. Leonie Beckham Glucose [Mass/Vol] 126 mg/dL Normal [facility] Comment on above: Performed By: #### A 1C ####[facility] [address] [place] [address]Dr. Leonie Beckham HbA1c (Bld) [Mass fraction] 6.0 % Normal 4.5-6.2 [facility] Comment on above: Performed By: #### A 1C ####[facility] [address] [place] [address]Dr. Leonie Beckham LIPID PROFILEon 04-05-2022 CHOL-HDL RATIO NORM SEE BELOW Normal [facility] Comment on above: Result Comment: 3.3 - 4.4 LOW RISK 4.4 - 7.1 AVERAGE RISK 7.1 - 11.0 MODERATE RISK >11.0 HIGH RISK Performed By: #### T SH, LIPID, CMP, T4, FT3 ####[facility] [address] [place] [address]Dr. Leonie Beckham Cholesterol [Mass/Vol] 137 mg/dL Normal <=200 [facility] Comment on above: Performed By: #### T SH, LIPID, CMP, T4, FT3 ####[facility] [address] [place] [address]Dr. Leonie Beckham Cholesterol in HDL [Mass/Vol] 40 mg/dL Normal 40-60 [facility] Comment on above: Performed By: #### T SH, LIPID, CMP, T4, FT3 ####[facility] [address] [place] [address]Dr. Leonie Beckham Cholesterol in LDL [Mass/Vol] 84.0 mg/dL Normal [facility] Comment on above: Performed By: #### T SH, LIPID, CMP, T4, FT3 ####[facility] [address] [place] [address]Dr. Leonie Beckham Cholesterol.total/Ch olesterol in HDL [Mass ratio] 3.4 {ratio} Normal [facility] Comment on above: Performed By: #### T SH, LIPID, CMP, T4, FT3 ####[facility] [address] [place] [address]Dr. Leonie Beckham HDL NORMAL > or = 60 mg/dl - LO W CARDIOVASCULAR RISK <40 mg/dl - HIGH CARDIOVASCULAR RISK Normal [facility] Comment on above: Performed By: #### T SH, LIPID, CMP, T4, FT3 ####[facility] [address] [place] [address]Dr. Leonie Beckham LDL CALC NORMAL SEE BELOW Normal [facility] Comment on above: Result Comment: <100 mg/dl OPTIMAL 100 - 129 mg/dl NEAR OR ABOVE OPTIMAL 130 - 159 mg/dl BORDERLINE HIGH 160 - 189 mg/dl HIGH >190 mg/dl VERY HIGH Performed By: #### T SH, LIPID, CMP, T4, FT3 ####[facility] [address] [place] [address]Dr. Leonie Beckham Triglyceride [Mass/Vol] 65 mg/dL Normal <=150 [facility] Comment on above: Performed By: #### T SH, LIPID, CMP, T4, FT3 ####[facility] [address] [place] [address]Dr. Leonie Beckham VLDL CALC 13.0 mg/dL Normal [facility] Comment on above: Performed By: #### T SH, LIPID, CMP, T4, FT3 ####[facility] [address] [place] [address]DrGabino Beckham PROF 14(COMP METB)on 022 Albumin [Mass/Vol] 3.8 g/dL Normal 3.4-5.0 [facility] Comment on above: Performed By: #### T SH, LIPID, CMP, T4, FT3 ####[facility] [address] [place] [address]Dr. Leonie Beckham Albumin/Globulin [Mass ratio] 1.2 {ratio} Normal [facility] Comment on above: Performed By: #### T SH, LIPID, CMP, T4, FT3 ####[facility] [address] [place] [address]Dr. Leonie Beckham ALP [Catalytic activity/Vol] 81 U/L Normal 46-116 [facility] Comment on above: Performed By: #### T SH, LIPID, CMP, T4, FT3 ####[facility] [address] [place] [address]Dr. Leonie Beckham ALT [Catalytic activity/Vol] 35 U/L Normal 16-63 [facility] Comment on above: Performed By: #### T SH, LIPID, CMP, T4, FT3 ####[facility] [address] [place] [address]Dr. Leonie Beckham Anion gap [Moles/Vol] 10.8 mmol/L Normal [facility] Comment on above: Performed By: #### T SH, LIPID, CMP, T4, FT3 ####[facility] [address] [place] [address]Dr. Leonie Beckham AST [Catalytic activity/Vol] 22 U/L Normal 15-37 [facility] Comment on above: Performed By: #### T SH, LIPID, CMP, T4, FT3 ####[facility] [address] [place] [address]Dr. Leonie Beckham Bilirubin [Mass/Vol] 1.1 mg/dL Critically high 0.2-1.0 [facility] Comment on above: Performed By: #### T SH, LIPID, CMP, T4, FT3 ####[facility] Jmod[address] [place] [address]Dr. Leonie Beckham Calcium [Mass/Vol] 8.6 mg/dL Normal 8.5-10.1 [facility] Comment on above: Performed By: #### T SH, LIPID, CMP, T4, FT3 ####[facility] [address] [place] [address]Dr. Leonie Beckham Chloride [Moles/Vol] 105 mmol/L Normal 98-107 [facility] Comment on above: Performed By: #### T SH, LIPID, CMP, T4, FT3 ####[facility] [address]dodeq[address]ix[address] [place] [address]Dr. Leonie Beckham CO2 [Moles/Vol] 28.2 mmol/L Normal 21.0-32.0 [facility] Comment on above: Performed By: #### T SH, LIPID, CMP, T4, FT3 ####[facility] [address] [place] [address]Dr. Leonie Beckham Creatinine [Mass/Vol] 1.33 mg/dL Critically high 0.70-1.30 [facility] Comment on above: Performed By: #### T SH, LIPID, CMP, T4, FT3 ####[facility] [address]zkl[address]hfe[address] [place] [address]Dr. Leonie Beckham EGFR-AF KAZAKH >60 Normal >=60 [facility] Comment on above: Performed By: #### T SH, LIPID, CMP, T4, FT3 ####[facility] Ozgtplioxk[address] [place] [address]Dr. Leonie Beckham EGFR-NON AF KAZAKH 55 mL/min/1.73m2 Critically low >=60 [facility] Comment on above: Performed By: #### T SH, LIPID, CMP, T4, FT3 ####[facility] [address] [place] [address]Dr. Leonie Beckham Globulin (S) [Mass/Vol] 3.3 g/dL Normal [facility] Comment on above: Performed By: #### T SH, LIPID, CMP, T4, FT3 ####[facility] [address] [place] [address]Dr. Leonie Beckham Glucose [Mass/Vol] 94 mg/dL Normal 74-106 [facility] Comment on above: Performed By: #### T SH, LIPID, CMP, T4, FT3 ####[facility] Aylxf[address] [place] [address]Dr. Leonie Beckham Potassium [Moles/Vol] 4.0 mmol/L Normal 3.5-5.1 [facility] Comment on above: Performed By: #### T SH, LIPID, CMP, T4, FT3 ####[facility] [address] [place], [place] [address]Dr. Leonie Beckham Protein [Mass/Vol] 7.1 g/dL Normal 6.4-8.2 [facility] Comment on above: Performed By: #### T SH, LIPID, CMP, T4, FT3 ####[facility] [address] [place], [place] [address]Dr. Leonie Beckham Sodium [Moles/Vol] 140 mmol/L Normal 136-145 [facility] Comment on above: Performed By: #### T SH, LIPID, CMP, T4, FT3 ####[facility] [address] [place], [place] [address]Dr. Leonie Beckham Urea nitrogen [Mass/Vol] 24.0 mg/dL Critically high 7.0-18.0 [facility] Comment on above: Performed By: #### T SH, LIPID, CMP, T4, FT3 ####[facility] [address]te[address]xt[address] [place] [address]Dr. Leonie Beckham Urea nitrogen/Creatinine [Mass ratio] 18.0 mg/mg Normal [facility] Comment on above: Performed By: #### T SH, LIPID, CMP, T4, FT3 ####[facility] [address] [place] [address]Dr. Leonie Beckham T4on 04-05-2022 T4 [Mass/Vol] 7.70 ug/dL Normal 4.50-12.10 [facility] Comment on above: Performed By: #### T SH, LIPID, CMP, T4, FT3 ####[facility] [address] [place], [place] [address]Dr. Leonie Beckham TSHon 04-05-2022 TSH 3.042 uIU/mL Normal 0.358-3.740 [facility] Comment on above: Performed By: #### T SH, LIPID, CMP, T4, FT3 ####[facility] [address] [place], [place] [address]WoGabino Beckham VC COMP CONSULTATIONon 03-08 VC COMP CONSULTATION Patient: TRACIE CRAIN Exam Date: 03/08/2022 : 1965 Gender:M Ordering : DR TITUS VILLEGAS . 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 Normal [facility] Ambulatory Clinical Summaryo n 12-20-2020 Ambulatory Clinical Summary {[id number] Normal [facility] Coding Summary.on 12-20-2020 Coding Summary. CODING DATE: 12/19/2020 FINAL [facility] STATUS: Home (Routine DC) PAYOR: Commercial [...] CphT Date Saved: 12/19/2020 11:58 pm Normal [facility] General Surgery Office/Clini c Noteon 12-20-2020 General [...] ADKINS, Tracie Gonzalez Only if needed [address] [place] [address]- Additional Instructions: Problem List/Past Medical [...] inactivated - Not Given Patient Refuses Normal [facility] Comment on above: Result Comment: Elec tronically Signed By: Tracie WOODY MD\Date and Time Signed: 12/20/20 15:58 EDT Ambulatory Clinical Summaryo n 12-09-2020 Ambulatory Clinical Summary {[id number] Normal [facility] General Surgery Office/Clini c Noteon 12-09-2020 General [...] inactivated - Not Given Patient Refuses Normal [facility] Comment on above: Result Comment: Elec tronically Signed By: BONG ADKINS, Tracie Sarah\Date and Time Signed: 12/09/20 09:30 EST Provider Letter FTon 11-30 Provider Letter [facility] [place]itus Sherisabela, [address] [place] [id number] Re: TRACIE CRAIN Date of : 1965 Thank you for your referral of Tracie Crain who was seen on consultation on November 29, 2020, for growth on left lower back that is changing. An excisional biopsy is planned. I have enclosed my consultation notes for your review. I will be happy to follow Tracie. Sincerely, Tracie Woody MD General Surgery Normal [facility] Ambulatory Clinical Summaryo n 11-29-2020 Ambulatory Clinical Summary {[id number] Normal [facility] Physician Referralon 021 Physician Referral [id number] 0CD:127 Normal [facility] Operative Reporton 9 Operative Report MR#: [id number] [facility] Pt. Name: Tracie Crain Room #: [...] form. The patient was brought to the laborer pipeline and transesophageal echocardiogram was performed under conscious [...] Reyna MD Date Trans: 05/12/2019 01:23 P/mmo [id number]_[id number] cc: Titus Villegas M.D. [address] [facility] [id number] Timbo Black MD [address] [place] [address] Normal [facility] BASIC METABOLIC PANELon 07-0 Calcium [Mass/Vol] 9.4 mg/dL Normal 8.6-10.3 [facility] Comment on above: Performed By: #### 0 0121, 82640, 38691, 76690, 88410 #### [facility] [address] [place] [address], [place] Chloride [Moles/Vol] 99 mmol/L Normal 98-107 [facility] Comment on above: Performed By: #### 0 0121, 55257, 10007, 47564, 45478 #### [facility] [address] [place] [address], [place] CO2 [Moles/Vol] 31 mmol/L Normal 21-31 The [facility] Comment on above: Performed By: #### 0 0121, 79641, 18680, 38125, 57151 #### [facility] [address] [place] [address], [place] Creatinine [Mass/Vol] 1.22 mg/dL Normal 0.70-1.30 [facility] Comment on above: Performed By: #### 0 0121, 21349, 96550, 62136, 46406 #### [facility] [address] [place] [address], [place] GFR/1.73 sq M predicted among blacks MDRD (S/P/Bld) [Vol rate/Area] mL/min/{1.73_m2} Normal >60 [facility] Comment on above: Performed By: #### 0 0121, 40666, 35397, 04326, 25586 #### [facility] [address] [place] [address], [place] GFR/1.73 sq M predicted among non-blacks MDRD (S/P/Bld) [Vol rate/Area] mL/min/{1.73_m2} Normal >60 [facility] Comment on above: Performed By: #### 0 0121, 11076, 40086, 61073, 16215 #### [facility] [address] [place] [address], [place] Glucose [Mass/Vol] 126 mg/dL High 70-100 [facility] Comment on above: Performed By: #### 0 0121, 34392, 34240, 03877, 71684 #### [facility] [address] [place] [address], [place] Potassium [Moles/Vol] 3.8 mmol/L Normal 3.5-5.1 [facility] Comment on above: Performed By: #### 0 0121, 64934, 33715, 92510, 81653 #### [facility] [address] [place] [address], [place] Sodium [Moles/Vol] 139 mmol/L Normal 136-145 [facility] Comment on above: Performed By: #### 0 0121, 50557, 90599, 54599, 08668 #### [facility] [address] [place] [address], [place] Urea nitrogen [Mass/Vol] 15 mg/dL Normal 7-25 [facility] Comment on above: Performed By: #### 0 0121, 16245, 23411, 68004, 38717 #### [facility] [address] BNP (B-TYPE NATRIURETIC PEPT PACHECO)on 04-07-2019 Natriuretic peptide B (Bld) [Mass/Vol] 502 pg/mL High 0-100 The [facility] Comment on above: Result Comment: Give n the appropriate clinical setting a BNP result of >100 pg/mL indicates congestive heart failure. Performed By: #### 0 0121, 76360, 35356, 07978, 05801 #### [facility] [address] CBC W/DIFFon 04-07-2019 ABS BASOPHILS 0.1 10*3/uL Normal 0.0-0.2 The [facility] Comment on above: Performed By: #### 0 0121, 35567, 87392, 88212, 72987 #### [facility] [address] ABS IMM GRANS 0.0 10*3/uL Normal 0.0-0.2 [facility] Comment on above: Performed By: #### 0 0121, 53424, 09675, 90823, 76949 #### [facility] [address] ABS NEUTROPHILS 5.1 10*3/uL Normal 1.6-7.6 The [facility] Comment on above: Performed By: #### 0 0121, 33737, 55073, 00697, 77321 #### [facility] [address] Basophils/100 WBC (Bld) 1.5 % High 0.0-1.0 [facility] Comment on above: Performed By: #### 0 0121, 36371, 28540, 91671, 51066 #### [facility] [address] Eosinophils (Bld) [#/Vol] 0.3 10*3/uL Normal 0.0-0.5 [facility] Comment on above: Performed By: #### 0 0121, 59029, 54785, 29007, 97152 #### [facility] [address] Eosinophils/100 WBC (Bld) 3.7 % Normal 0.0-6.0 [facility] Comment on above: Performed By: #### 0 0121, 11602, 80772, 74770, 09533 #### [facility] [address] [facility] [address] Erythrocyte distribution width (RBC) [Ratio] 13.2 % Normal 11.5-15.0 [facility] Comment on above: Performed By: #### 0 0121, 35428, 30569, 12432, 24218 #### [facility] [address] Hematocrit (Bld) [Volume fraction] 39.2 % Normal 39.0-50.0 [facility] Comment on above: Performed By: #### 0 0121, 56617, 14179, 99509, 13971 #### [facility] [address] [facility] Hemoglobin (Bld) [Mass/Vol] 12.4 g/dL Low 13.0-17.0 [facility] Comment on above: Performed By: #### 0 0121, 95239, 41626, 54397, 99258 #### [facility] [address] [facility] IMMATURE GRANS 0.4 % Normal 0.0-1.0 [facility] Comment on above: Performed By: #### 0 0121, 61387, 43537, 35708, 13864 #### [facility] [address] Lymphocytes (Bld) [#/Vol] 1.7 10*3/uL Normal 1.2-4.0 [facility] Comment on above: Performed By: #### 0 0121, 03597, 76947, 97711, 61419 #### [facility] [address] Lymphocytes/100 WBC (Bld) 21.2 % Normal 20.0-45.0 [facility] Comment on above: Performed By: #### 0 0121, 39105, 51983, 90673, 73543 #### [facility] [address] [facility] [address] MCH (RBC) [Entitic mass] 28.8 pg Normal 27.0-33.0 [facility] Comment on above: Performed By: #### 0 0121, 30491, 80459, 63606, 47443 #### [facility] [address] MCHC (RBC) [Mass/Vol] 31.6 g/dL Low 32.0-35.0 [facility] Comment on above: Performed By: #### 0 0121, 44912, 92403, 95275, 00386 #### [facility] [address] [facility] MCV (RBC) [Entitic vol] 91.0 fL Normal 82.0-98.0 [facility] Comment on above: Performed By: #### 0 0121, 80339, 60809, 08563, 94798 #### [facility] [address] [facility] [address], [facility] Monocytes (Bld) [#/Vol] 0.9 10*3/uL Normal 0.1-1.0 [facility] Comment on above: Performed By: #### 0 0121, 60725, 04157, 42351, 95439 #### [facility] [address] [facility] [place] [id number], [place] MONOS 10.6 % Normal 5.0-12.0 [facility] Comment on above: Performed By: #### 0 0121, 64662, 80437, 55858, 36604 #### [facility] [address] [place] [address], [place] Neutrophils/100 WBC (Bld) 62.6 % Normal 40.0-72.0 [facility] Comment on above: Performed By: #### 0 0121, 99218, 53255, 65063, 37808 #### [facility] [address] [place] [address], [facility] Nucleated RBC/100 WBC (Bld) [Ratio] 0 % Normal 0-0 [facility] Comment on above: Performed By: #### 0 0121, 16341, 42338, 52443, 98420 #### [facility] [address] [place] [address], [place] PLAT CNT 520 10*3/uL High 150-400 The [facility] Comment on above: Performed By: #### 0 0121, 48615, 63589, 19489, 26609 #### [facility] [address] [place] [address], [facility] RBC (Bld) [#/Vol] 4.31 10*6/uL Normal 4.20-5.70 The [facility] Comment on above: Performed By: #### 0 0121, 49883, 95066, 05429, 64010 #### [facility] [address] [place] [address], [place] WBC (Bld) [#/Vol] 8.20 10*3/uL Normal 4.00-10.60 [facility] Comment on above: Performed By: #### 0 0121, 95849, 90489, 07614, 20028 #### [facility] [address] [facility] HEMOGLOBINon 04-07-2019 Hemoglobin (Bld) [Mass/Vol] CANCELED Normal 13.0-17.0 [facility] Comment on above: Result Comment: The released value 12.3 was canceled by OCREEGER on 04/07/2019 12:48 Performed By: #### 0 0121, 85082, 49088, 36105, 93315 #### [facility] [address] [place] [address], [facility] BASIC METABOLIC PANELon 06-2 Calcium [Mass/Vol] 9.0 mg/dL Normal 8.6-10.3 [facility] Comment on above: Order Comment: No: D o not add to previous draw Performed By: #### 0 0121, 70080, 26642, 72973, 22536 #### [facility] [address] [place] [id number], [facility] Chloride [Moles/Vol] 98 mmol/L Normal 98-107 [facility] Comment on above: Order Comment: No: D o not add to previous draw Performed By: #### 0 0121, 86152, 75311, 05815, 33060 #### [facility] [address] [place] [address], [facility] CO2 [Moles/Vol] 29 mmol/L Normal 21-31 [facility] Comment on above: Order Comment: No: D o not add to previous draw Performed By: #### 0 0121, 64241, 88515, 83683, 50831 #### [facility] [address] [place] [address], [facility] Creatinine [Mass/Vol] 1.00 mg/dL Normal 0.70-1.30 [facility] Comment on above: Order Comment: No: D o not add to previous draw Performed By: #### 0 0121, 15849, 21604, 22762, 03996 #### [facility] [address] [place] [address], [facility] GFR/1.73 sq M predicted among blacks MDRD (S/P/Bld) [Vol rate/Area] mL/min/{1.73_m2} Normal >60 [facility] Comment on above: Order Comment: No: D o not add to previous draw Performed By: #### 0 0121, 72657, 37011, 57087, 37039 #### [facility] [address] [place] [address], [place] GFR/1.73 sq M predicted among non-blacks MDRD (S/P/Bld) [Vol rate/Area] mL/min/{1.73_m2} Normal >60 [facility] Comment on above: Order Comment: No: D o not add to previous draw Performed By: #### 0 0121, 85380, 25249, 42468, 61662 #### [facility] [address] [place] [address], [facility] Glucose [Mass/Vol] 96 mg/dL Normal 70-100 [facility] Comment on above: Order Comment: No: D o not add to previous draw Performed By: #### 0 0121, 04139, 35673, 09881, 59262 #### [facility] [address] [place] [address], [place] Potassium [Moles/Vol] 3.1 mmol/L Low 3.5-5.1 [facility] Comment on above: Order Comment: No: D o not add to previous draw Performed By: #### 0 0121, 36036, 31074, 21535, 20889 #### [facility] [address] [place] [address], [place] Sodium [Moles/Vol] 138 mmol/L Normal 136-145 [facility] Comment on above: Order Comment: No: D o not add to previous draw Performed By: #### 0 0121, 40932, 34318, 30745, 38565 #### [facility] [address] [place] [address], [facility] Urea nitrogen [Mass/Vol] 24 mg/dL Normal 7-25 [facility] Comment on above: Order Comment: No: D o not add to previous draw Performed By: #### 0 0121, 76847, 22586, 07218, 29713 #### [facility] [address] [place] [address], [facility] CBC COMPLETE BLOOD COUNTon 03-27-2019 Erythrocyte distribution width (RBC) [Ratio] 13.6 % Normal 11.5-15.0 [facility] Comment on above: Order Comment: No: D o not add to previous draw Performed By: #### 0 0121, 86394, 15614, 36151, 23768 #### [facility] [address] [place] [address], [facility] Hematocrit (Bld) [Volume fraction] 34.7 % Low 39.0-50.0 [facility] Comment on above: Order Comment: No: D o not add to previous draw Performed By: #### 0 0121, 21652, 16072, 95221, 56235 #### [facility] [address] [place] [address], [facility] Hemoglobin (Bld) [Mass/Vol] 11.3 g/dL Low 13.0-17.0 [facility] Comment on above: Order Comment: No: D o not add to previous draw Performed By: #### 0 0121, 91258, 17922, 13644, 71558 #### [facility] [address] [place] [address], [facility] MCH (RBC) [Entitic mass] 28.8 pg Normal 27.0-33.0 [facility] Comment on above: Order Comment: No: D o not add to previous draw Performed By: #### 0 0121, 08513, 89688, 37306, 26760 #### [facility] [address] [place], [place] [address] [place] [address] MCHC (RBC) [Mass/Vol] 32.6 g/dL Normal 32.0-35.0 [facility] Comment on above: Order Comment: No: D o not add to previous draw Performed By: #### 0 0121, 05649, 69411, 69440, 52580 #### [facility] [address] [place] [address], [facility] MCV (RBC) [Entitic vol] 88.5 fL Normal 82.0-98.0 [facility] Comment on above: Order Comment: No: D o not add to previous draw Performed By: #### 0 0121, 34000, 85673, 11895, 80614 #### [facility] [address] [place] [address], [facility] Nucleated RBC/100 WBC (Bld) [Ratio] 0 % Normal 0-0 [facility] Comment on above: Order Comment: No: D o not add to previous draw Performed By: #### 0 0121, 74545, 05121, 78976, 10605 #### [facility] [address] [place] [address], [facility] PLAT CNT 205 10*3/uL Normal 150-400 The [facility] Comment on above: Order Comment: No: D o not add to previous draw Performed By: #### 0 0121, 76655, 23616, 79648, 61109 #### [facility] [address] [place] [address], [facility] RBC (Bld) [#/Vol] 3.92 10*6/uL Low 4.20-5.70 [facility] Comment on above: Order Comment: No: D o not add to previous draw Performed By: #### 0 0121, 29082, 14424, 33813, 38948 #### [facility] [address] [place] [address], [place] WBC (Bld) [#/Vol] 11.83 10*3/uL High 4.00-10.60 [facility] Comment on above: Order Comment: No: D o not add to previous draw Performed By: #### 0 0121, 87239, 41005, 14549, 17826 #### [facility] [address] [facility] [place] [address], [facility] MAGNESIUM BLOODon 03-27-2019 Magnesium [Mass/Vol] 2.3 mg/dL Normal 1.9-2.7 [facility] Comment on above: Order Comment: No: D o not add to previous draw Performed By: #### 0 0121, 44074, 73964, 46194, 88353 #### [facility] [address] [facility] [place] [address], [facility] POC GLUCOSE LABon 03-27-2019 Glucose [Mass/Vol] 115 mg/dL High 70-100 [facility] Comment on above: Performed By: #### 0 0121, 32783, 40178, 98235, 90286 #### [facility] [address] [facility] [place] [address], [facility] Glucose [Mass/Vol] 96 mg/dL Normal 70-100 [facility] Comment on above: Performed By: #### 0 [id number], [id number], [id number], [id number], [id number] #### [facility] [address] [facility] [place] [address], [facility] PORTABLE CHEST 1 VIEWon 03-01 PORTABLE CHEST 1 VIEW [facility] Department of Radiology [address] [place] [id number] ======== Patient Name: TRACIE CRAIN : 1965 Sex: M Age: Race: NA Pt. Location: [id number] Patient Status: I Ordered Date: 03/27/2019 5:00:00 [...] findings. Electronically signed by:Divya Collins. Transcribed by: [email or web address], User Resident: ANAI ALVARADO Electronically Signed by: DIVYA COLLINS @ 03/27/2019 09:07 AM I personally read this/these film(s) with this resident Normal [facility] Comment on above: Order Comment: No: D o not add to previous draw BASIC METABOLIC PANELon 03-01 Calcium [Mass/Vol] 9.2 mg/dL Normal 8.6-10.3 [facility] Comment on above: Order Comment: No: D o not add to previous draw Performed By: #### 0 0121, 62889, 65332, 38504, 10777 #### [facility] [address] [place] [address], [place] Chloride [Moles/Vol] 101 mmol/L Normal 98-107 [facility] Comment on above: Order Comment: No: D o not add to previous draw Performed By: #### 0 0121, 90418, 23441, 53421, 83832 #### [facility] [address] [place] [address], [place] CO2 [Moles/Vol] 27 mmol/L Normal 21-31 [facility] Comment on above: Order Comment: No: D o not add to previous draw Performed By: #### 0 0121, 24340, 84878, 58441, 48490 #### [facility] [address] [place] [address], [place] Creatinine [Mass/Vol] 0.93 mg/dL Normal 0.70-1.30 [facility] Comment on above: Order Comment: No: D o not add to previous draw Performed By: #### 0 0121, 52845, 86373, 85138, 51775 #### [facility] [address] [place] [address], [place] GFR/1.73 sq M predicted among blacks MDRD (S/P/Bld) [Vol rate/Area] mL/min/{1.73_m2} Normal >60 [facility] Comment on above: Order Comment: No: D o not add to previous draw Performed By: #### 0 0121, 79835, 24901, 61082, 51647 #### [facility] [address] [place] [address], [place] GFR/1.73 sq M predicted among non-blacks MDRD (S/P/Bld) [Vol rate/Area] mL/min/{1.73_m2} Normal >60 [facility] Comment on above: Order Comment: No: D o not add to previous draw Performed By: #### 0 0121, 47211, 28262, 92239, 26484 #### [facility] [address] [place] [address], [facility] Glucose [Mass/Vol] 111 mg/dL High 70-100 [facility] Comment on above: Order Comment: No: D o not add to previous draw Performed By: #### 0 0121, 69814, 93849, 49528, 05855 #### [facility] [address] [place] [address], [facility] Potassium [Moles/Vol] 3.9 mmol/L Normal 3.5-5.1 [facility] Comment on above: Order Comment: No: D o not add to previous draw Performed By: #### 0 0121, 90737, 93361, 03121, 93224 #### [facility] [address] [place] [address], [facility] Sodium [Moles/Vol] 137 mmol/L Normal 136-145 [facility] Comment on above: Order Comment: No: D o not add to previous draw Performed By: #### 0 0121, 99478, 27492, 77276, 42608 #### [facility] [address] [facility] [address], [facility] Urea nitrogen [Mass/Vol] 26 mg/dL High 7-25 [facility] Comment on above: Order Comment: No: D o not add to previous draw Performed By: #### 0 0121, 19073, 05737, 85546, 53872 #### [facility] [address] [place] [address], [facility] CBC W/DIFFon 03-26-2019 ABS BASOPHILS 0.1 10*3/uL Normal 0.0-0.2 [facility] Comment on above: Order Comment: No: D o not add to previous draw Performed By: #### 0 0121, 44586, 70092, 25248, 44032 #### [facility] [address] [place] [address], [facility] ABS IMM GRANS 0.5 10*3/uL High 0.0-0.2 [facility] Comment on above: Order Comment: No: D o not add to previous draw Performed By: #### 0 0121, 86339, 77423, 12034, 48447 #### [facility] [address] [place] [address], [facility] ABS NEUTROPHILS 10.2 10*3/uL High 1.6-7.6 [facility] Comment on above: Order Comment: No: D o not add to previous draw Performed By: #### 0 0121, 81661, 57622, 28905, 11170 #### [facility] [address] [facility] [address], [facility] Basophils/100 WBC (Bld) 0.6 % Normal 0.0-1.0 [facility] Comment on above: Order Comment: No: D o not add to previous draw Performed By: #### 0 0121, 97145, 15436, 56739, 58852 #### [facility] [address] [facility] [place] [address], [facility] Eosinophils (Bld) [#/Vol] 0.4 10*3/uL Normal 0.0-0.5 [facility] Comment on above: Order Comment: No: D o not add to previous draw Performed By: #### 0 0121, 31073, 82452, 20219, 85332 #### [facility] [address] [place] [address], [facility] Eosinophils/100 WBC (Bld) 2.8 % Normal 0.0-6.0 [facility] Comment on above: Order Comment: No: D o not add to previous draw Performed By: #### 0 0121, 60207, 74354, 02526, 96226 #### [facility] [address] [place] [address], [facility] Erythrocyte distribution width (RBC) [Ratio] 13.6 % Normal 11.5-15.0 [facility] Comment on above: Order Comment: No: D o not add to previous draw Performed By: #### 0 0121, 95059, 84467, 93085, 89347 #### [facility] [address] [place] [address], [facility] Hematocrit (Bld) [Volume fraction] 34.5 % Low 39.0-50.0 [facility] Comment on above: Order Comment: No: D o not add to previous draw Performed By: #### 0 0121, 61885, 83316, 43628, 68022 #### [facility] [address] [place] [address], [facility] Hemoglobin (Bld) [Mass/Vol] 11.3 g/dL Low 13.0-17.0 [facility] Comment on above: Order Comment: No: D o not add to previous draw Performed By: #### 0 0121, 27020, 11368, 91828, 33075 #### [facility] [address] [place] [address], [facility] IMMATURE GRANS 3.5 % High 0.0-1.0 [facility] Comment on above: Order Comment: No: D o not add to previous draw Performed By: #### 0 0121, 31196, 73361, 63888, 08733 #### [facility] [address] [place] [address], [facility] Lymphocytes (Bld) [#/Vol] 1.3 10*3/uL Normal 1.2-4.0 [facility] Comment on above: Order Comment: No: D o not add to previous draw Performed By: #### 0 0121, 54908, 05796, 61887, 23089 #### [facility] [address] [place] [address], [place] Lymphocytes/100 WBC (Bld) 9.2 % Low 20.0-45.0 [facility] Comment on above: Order Comment: No: D o not add to previous draw Performed By: #### 0 0121, 82256, 92044, 89465, 20574 #### [facility] [address] [place] [address], [facility] MCH (RBC) [Entitic mass] 28.9 pg Normal 27.0-33.0 [facility] Comment on above: Order Comment: No: D o not add to previous draw Performed By: #### 0 0121, 75183, 31934, 67174, 47658 #### [facility] [address] [place] [id number], [facility] MCHC (RBC) [Mass/Vol] 32.8 g/dL Normal 32.0-35.0 [facility] Comment on above: Order Comment: No: D o not add to previous draw Performed By: #### 0 0121, 62934, 53344, 47781, 13051 #### [facility] [address] [place] [address], [facility] MCV (RBC) [Entitic vol] 88.2 fL Normal 82.0-98.0 [facility] Comment on above: Order Comment: No: D o not add to previous draw Performed By: #### 0 0121, 87163, 37569, 89247, 89344 #### [facility] [address] [place] [address], [facility] Monocytes (Bld) [#/Vol] 1.7 10*3/uL High 0.1-1.0 [facility] Comment on above: Order Comment: No: D o not add to previous draw Performed By: #### 0 0121, 86598, 70380, 51723, 80636 #### [facility] [address] [facility] [address], [facility] MONOS 11.7 % Normal 5.0-12.0 [facility] Comment on above: Order Comment: No: D o not add to previous draw Performed By: #### 0 0121, 08113, 94876, 05503, 53237 #### [facility] [address] [place] [address], [facility] Neutrophils/100 WBC (Bld) 72.2 % High 40.0-72.0 [facility] Comment on above: Order Comment: No: D o not add to previous draw Performed By: #### 0 0121, 76689, 89961, 48146, 80978 #### [facility] [address] [place] [address], [place] Nucleated RBC/100 WBC (Bld) [Ratio] 0 % Normal 0-0 [facility] Comment on above: Order Comment: No: D o not add to previous draw Performed By: #### 0 0121, 76479, 34796, 42934, 07512 #### [facility] [address] [place] [address], [place] PLAT CNT 215 10*3/uL Normal 150-400 The [facility] Comment on above: Order Comment: No: D o not add to previous draw Performed By: #### 0 0121, 21345, 25259, 50592, 91852 #### [facility] [address] [place] [id number], [facility] RBC (Bld) [#/Vol] 3.91 10*6/uL Low 4.20-5.70 The [facility] Comment on above: Order Comment: No: D o not add to previous draw Performed By: #### 0 0121, 65554, 10936, 99303, 84126 #### [facility] [address] [place] [address], [place] WBC (Bld) [#/Vol] 14.17 10*3/uL High 4.00-10.60 [facility] Comment on above: Order Comment: No: D o not add to previous draw Performed By: #### 0 0121, 83555, 47890, 79264, 59407 #### [facility] [address] [place] [address], [place] POC GLUCOSE LABon 03-26-2019 Glucose [Mass/Vol] 129 mg/dL High 70-100 [facility] Comment on above: Performed By: #### 0 0121, 88212, 42663, 11725, 43066 #### [facility] [address] [place] [address], [place] Glucose [Mass/Vol] 129 mg/dL High 70-100 [facility] Comment on above: Performed By: #### 0 0121, 68712, 47343, 02341, 04097 #### [facility] [address] [place] [address], [place] Glucose [Mass/Vol] 130 mg/dL High 70-100 [facility] Comment on above: Performed By: #### 0 0121, 69346, 40929, 37767, 44101 #### [facility] [address] [facility] [place] [address], [place] Glucose [Mass/Vol] 91 mg/dL Normal 70-100 [facility] Comment on above: Performed By: #### 0 0121, 51677, 01309, 86480, 96850 #### [facility] [address] [facility] [place] [address], [facility] PORTABLE CHEST 1 VIEWon 03-01 PORTABLE CHEST 1 VIEW [facility] Department of Radiology [address] [place] [id number] ======== Patient Name: TRACIE CRAIN : 1965 Sex: M Age: Race: NA Pt. Location: [id number] Patient Status: I Ordered Date: 03/26/2019 7:00:00 [...] findings. Electronically signed by:Divya Collins. Transcribed by: [email or web address], User Resident: KAREEM LIAO Electronically Signed by: DIVYA COLLINS @ 03/26/2019 10:03 AM I personally read this/these film(s) with this resident Normal [facility] Comment on above: Order Comment: No: D o not add to previous draw BASIC METABOLIC PANELon 03-01 Calcium [Mass/Vol] 9.1 mg/dL Normal 8.6-10.3 [facility] Comment on above: Order Comment: << On admission If not done in ED>> No: Do not add to previous draw Performed By: #### 0 0121, 84545, 21817, 28307, 52511 #### [facility] [address] [place] [address], [place] Chloride [Moles/Vol] 98 mmol/L Normal 98-107 [facility] Comment on above: Order Comment: << On admission If not done in ED>> No: Do not add to previous draw Performed By: #### 0 0121, 40430, 12209, 53572, 78171 #### [facility] [address] [place] [address], [facility] CO2 [Moles/Vol] 29 mmol/L Normal 21-31 The [facility] Comment on above: Order Comment: << On admission If not done in ED>> No: Do not add to previous draw Performed By: #### 0 0121, 99882, 43976, 23334, 45260 #### [facility] [address] [place] [address], [facility] Creatinine [Mass/Vol] 1.01 mg/dL Normal 0.70-1.30 [facility] Comment on above: Order Comment: << On admission If not done in ED>> No: Do not add to previous draw Performed By: #### 0 0121, 88630, 89847, 17584, 55184 #### [facility] [address] [place] [address], [place] GFR/1.73 sq M predicted among blacks MDRD (S/P/Bld) [Vol rate/Area] mL/min/{1.73_m2} Normal >60 [facility] Comment on above: Order Comment: << On admission If not done in ED>> No: Do not add to previous draw Performed By: #### 0 0121, 95245, 18615, 67322, 23107 #### [facility] [address] [place] [address], [facility] GFR/1.73 sq M predicted among non-blacks MDRD (S/P/Bld) [Vol rate/Area] mL/min/{1.73_m2} Normal >60 [facility] Comment on above: Order Comment: << On admission If not done in ED>> No: Do not add to previous draw Performed By: #### 0 0121, 71896, 07945, 92014, 12127 #### [facility] [address] [place] [address], [facility] Glucose [Mass/Vol] 123 mg/dL High 70-100 [facility] Comment on above: Order Comment: << On admission If not done in ED>> No: Do not add to previous draw Performed By: #### 0 0121, 32789, 08831, 38235, 26042 #### [facility] [address] [place] [address], [facility] Potassium [Moles/Vol] 3.9 mmol/L Normal 3.5-5.1 [facility] Comment on above: Order Comment: << On admission If not done in ED>> No: Do not add to previous draw Performed By: #### 0 0121, 76846, 20653, 76298, 07378 #### [facility] [address] [place] [address], [place] Sodium [Moles/Vol] 134 mmol/L Low 136-145 [facility] Comment on above: Order Comment: << On admission If not done in ED>> No: Do not add to previous draw Performed By: #### 0 0121, 83001, 84795, 09979, 71449 #### [facility] [address] [place] [address], [place] Urea nitrogen [Mass/Vol] 29 mg/dL High 7-25 [facility] Comment on above: Order Comment: << On admission If not done in ED>> No: Do not add to previous draw Performed By: #### 0 0121, 41829, 84026, 56326, 78236 #### [facility] [address] [place] [address], [facility] CBC W/DIFFon 03-25-2019 ABS BASOPHILS 0.1 10*3/uL Normal 0.0-0.2 [facility] Comment on above: Order Comment: << On admission If not done in ED>> No: Do not add to previous draw Performed By: #### 0 0121, 53367, 51874, 59870, 22896 #### [facility] [address] [facility] [place] [address], [facility] ABS NEUTROPHILS 11.2 10*3/uL High 1.6-7.6 [facility] Comment on above: Order Comment: << On admission If not done in ED>> No: Do not add to previous draw Performed By: #### 0 0121, 56841, 25932, 34207, 90406 #### [facility] [address] [facility] [place] [address], [facility] Basophils/100 WBC (Bld) 0.9 % Normal 0.0-1.0 [facility] Comment on above: Order Comment: << On admission If not done in ED>> No: Do not add to previous draw Performed By: #### 0 0121, 88149, 11935, 11283, 25028 #### [facility] [address] [place] [address], [facility] Eosinophils (Bld) [#/Vol] 0.1 10*3/uL Normal 0.0-0.5 [facility] Comment on above: Order Comment: << On admission If not done in ED>> No: Do not add to previous draw Performed By: #### 0 0121, 08119, 62876, 88823, 57954 #### [facility] [address] [place] [address], [facility] Eosinophils/100 WBC (Bld) 0.9 % Normal 0.0-6.0 [facility] Comment on above: Order Comment: << On admission If not done in ED>> No: Do not add to previous draw Performed By: #### 0 0121, 81950, 41201, 67206, 72487 #### [facility] [address] [place] [address], [facility] Erythrocyte distribution width (RBC) [Ratio] 13.4 % Normal 11.5-15.0 [facility] Comment on above: Order Comment: << On admission If not done in ED>> No: Do not add to previous draw Performed By: #### 0 0121, 22570, 60451, 39950, 38762 #### [facility] [address] [place] [address], [facility] GIANT PLATELETS Present Normal The [facility] Comment on above: Order Comment: << On admission If not done in ED>> No: Do not add to previous draw Performed By: #### 0 0121, 91301, 72724, 62166, 72929 #### [facility] [address] Hematocrit (Bld) [Volume fraction] 35.4 % Low 39.0-50.0 [facility] Comment on above: Order Comment: << On admission If not done in ED>> No: Do not add to previous draw Performed By: #### 0 0121, 53113, 87866, 68905, 45769 #### [facility] [address] [place] [address], [facility] Hemoglobin (Bld) [Mass/Vol] 11.1 g/dL Low 13.0-17.0 [facility] Comment on above: Order Comment: << On admission If not done in ED>> No: Do not add to previous draw Performed By: #### 0 0121, 66269, 86785, 02937, 31380 #### [facility] [address] [place] [address], [facility] Lymphocytes (Bld) [#/Vol] 0.8 10*3/uL Low 1.2-4.0 [facility] Comment on above: Order Comment: << On admission If not done in ED>> No: Do not add to previous draw Performed By: #### 0 0121, 12834, 64164, 51588, 66232 #### [facility] [address] [place] [address], [facility] Lymphocytes/100 WBC (Bld) 6.3 % Low 20.0-45.0 [facility] Comment on above: Order Comment: << On admission If not done in ED>> No: Do not add to previous draw Performed By: #### 0 0121, 73398, 76295, 96062, 04417 #### [facility] [address] [place] [address], [facility] MCH (RBC) [Entitic mass] 28.8 pg Normal 27.0-33.0 [facility] Comment on above: Order Comment: << On admission If not done in ED>> No: Do not add to previous draw Performed By: #### 0 0121, 13206, 37096, 68346, 72162 #### [facility] [address] [place] [address], [facility] MCHC (RBC) [Mass/Vol] 31.4 g/dL Low 32.0-35.0 [facility] Comment on above: Order Comment: << On admission If not done in ED>> No: Do not add to previous draw Performed By: #### 0 0121, 43324, 33244, 50105, 82058 #### [facility] [address] [place] [address], [facility] MCV (RBC) [Entitic vol] 91.9 fL Normal 82.0-98.0 [facility] Comment on above: Order Comment: << On admission If not done in ED>> No: Do not add to previous draw Performed By: #### 0 0121, 91818, 19017, 17006, 15059 #### [facility] [address] [place] [address], [facility] Monocytes (Bld) [#/Vol] 0.7 10*3/uL Normal 0.1-1.0 [facility] Comment on above: Order Comment: << On admission If not done in ED>> No: Do not add to previous draw Performed By: #### 0 0121, 44202, 35724, 18522, 94140 #### [facility] [address] [place] [place] [address], [facility] MONOS 5.4 % Normal 5.0-12.0 [facility] Comment on above: Order Comment: << On admission If not done in ED>> No: Do not add to previous draw Performed By: #### 0 0121, 17134, 73921, 11687, 01263 #### [facility] [address] [facility] [address], [facility] MYELOS 0.9 % High .0-.0 [facility] Comment on above: Order Comment: << On admission If not done in ED>> No: Do not add to previous draw Performed By: #### 0 0121, 06711, 03942, 17345, 64396 #### [facility] [address] [facility] [address], [facility] Neutrophils/100 WBC (Bld) 85.6 % High 40.0-72.0 [facility] Comment on above: Order Comment: << On admission If not done in ED>> No: Do not add to previous draw Performed By: #### 0 0121, 05613, 27739, 51053, 45982 #### [facility] [address] [facility] [address], [facility] Nucleated RBC/100 WBC (Bld) [Ratio] 0 % Normal 0-0 [facility] Comment on above: Order Comment: << On admission If not done in ED>> No: Do not add to previous draw Performed By: #### 0 0121, 80026, 18384, 77983, 49421 #### [facility] [address] [place] [address], [facility] PLAT CNT 196 10*3/uL Normal 150-400 The [facility] Comment on above: Order Comment: << On admission If not done in ED>> No: Do not add to previous draw Performed By: #### 0 0121, 42190, 66613, 82071, 95552 #### [facility] [address] [place] [place] [address], [facility] RBC (Bld) [#/Vol] 3.85 10*6/uL Low 4.20-5.70 [facility] Comment on above: Order Comment: << On admission If not done in ED>> No: Do not add to previous draw Performed By: #### 0 [id number], [id number], [id number], [id number], [id number] #### [facility] [address] [place] [address], [facility] WBC (Bld) [#/Vol] 13.09 10*3/uL High 4.00-10.60 [facility] Comment on above: Order Comment: << On admission If not done in ED>> No: Do not add to previous draw Performed By: #### 0 [id number], [id number], [id number], [id number], [id number] #### [facility] [address] [place] [address], [facility] MAGNESIUM BLOODon 03-25-2019 Magnesium [Mass/Vol] 2.3 mg/dL Normal 1.9-2.7 [facility] Comment on above: Order Comment: << On admission If not done in ED>> No: Do not add to previous draw Performed By: #### 0 0121, 61781, 60533, 16326, 29685 #### [facility] [address] [facility] [address], [facility] PHOSPHORUS BLOODon 9 Phosphate [Mass/Vol] 2.6 mg/dL Normal 2.5-5.0 [facility] Comment on above: Order Comment: << On admission If not done in ED>> No: Do not add to previous draw Performed By: #### 0 0121, 53163, 00667, 22096, 99534 #### [facility] [address] [place] [address], [place] POC GLUCOSE LABon 03-25-2019 Glucose [Mass/Vol] 103 mg/dL High 70-100 [facility] Comment on above: Performed By: #### 0 0121, 90869, 83092, 80564, 55235 #### [facility] [address] [facility] [place] [address], [place] Glucose [Mass/Vol] 113 mg/dL High 70-100 [facility] Comment on above: Performed By: #### 0 0121, 71381, 42148, 84675, 93599 #### [facility] [address] [facility] [place] [address], [place] Glucose [Mass/Vol] 120 mg/dL High 70-100 [facility] Comment on above: Performed By: #### 0 0121, 04644, 38635, 66514, 54177 #### [facility] [address] [facility] [place] [address], [place] Glucose [Mass/Vol] 110 mg/dL High 70-100 [facility] Comment on above: Performed By: #### 0 0121, 60754, 39814, 77368, 31775 #### [facility] [address] [facility] [place] [address], [place] PORTABLE CHEST 1 VIEWon 03-01 PORTABLE CHEST 1 VIEW [facility] Department of Radiology [address] [place] [id number] ======== Patient Name: TRACIE CRAIN : 1965 Sex: M Age: Race: NA Pt. Location: [id number] Patient Status: I Ordered Date: 03/25/2019 7:00:00 [...] findings. Electronically signed by:Divya Collins. Transcribed by: [email or web address], User Resident: KAREEM LIAO Electronically Signed by: DIVYA COLLINS @ 03/25/2019 11:10 AM I personally read this/these film(s) with this resident Normal [facility] Comment on above: Order Comment: No: D o not add to previous draw BASIC METABOLIC PANELon 03-01 Calcium [Mass/Vol] 9.0 mg/dL Normal 8.6-10.3 [facility] Comment on above: Order Comment: << On admission If not done in ED>> No: Do not add to previous draw Performed By: #### 0 0121, 94648, 74053, 28029, 29002 #### [facility] [address] [place] [address], [facility] Chloride [Moles/Vol] 96 mmol/L Low 98-107 [facility] Comment on above: Order Comment: << On admission If not done in ED>> No: Do not add to previous draw Performed By: #### 0 0121, 26425, 13366, 23079, 45223 #### [facility] [address] [place] [address], [place] CO2 [Moles/Vol] 30 mmol/L Normal 21-31 The [facility] Comment on above: Order Comment: << On admission If not done in ED>> No: Do not add to previous draw Performed By: #### 0 0121, 52482, 67386, 96786, 29529 #### [facility] [address] [place] [address], [place] Creatinine [Mass/Vol] 0.89 mg/dL Normal 0.70-1.30 [facility] Comment on above: Order Comment: << On admission If not done in ED>> No: Do not add to previous draw Performed By: #### 0 0121, 87353, 46363, 87512, 35687 #### [facility] [address] [place] [address], [place] GFR/1.73 sq M predicted among blacks MDRD (S/P/Bld) [Vol rate/Area] mL/min/{1.73_m2} Normal >60 [facility] Comment on above: Order Comment: << On admission If not done in ED>> No: Do not add to previous draw Performed By: #### 0 0121, 25584, 89831, 72944, 73161 #### [facility] [address] [place] [address], [place] GFR/1.73 sq M predicted among non-blacks MDRD (S/P/Bld) [Vol rate/Area] mL/min/{1.73_m2} Normal >60 [facility] Comment on above: Order Comment: << On admission If not done in ED>> No: Do not add to previous draw Performed By: #### 0 0121, 10078, 26717, 26661, 28047 #### [facility] [address] [place] [address], [place] Glucose [Mass/Vol] 98 mg/dL Normal 70-100 [facility] Comment on above: Order Comment: << On admission If not done in ED>> No: Do not add to previous draw Performed By: #### 0 0121, 87504, 02400, 61717, 65446 #### [facility] [address] [place] [address], [place] Potassium [Moles/Vol] 3.2 mmol/L Low 3.5-5.1 [facility] Comment on above: Order Comment: << On admission If not done in ED>> No: Do not add to previous draw Performed By: #### 0 0121, 70628, 03984, 14513, 27636 #### [facility] [address] [place] [address], [place] Sodium [Moles/Vol] 135 mmol/L Low 136-145 [facility] Comment on above: Order Comment: << On admission If not done in ED>> No: Do not add to previous draw Performed By: #### 0 0121, 21621, 82021, 24755, 15852 #### [facility] [address] [place] [address], [place] Urea nitrogen [Mass/Vol] 29 mg/dL High 7-25 [facility] Comment on above: Order Comment: << On admission If not done in ED>> No: Do not add to previous draw Performed By: #### 0 0121, 48936, 28862, 94136, 82527 #### [facility] [address] CBC W/DIFFon 03-24-2019 ABS BASOPHILS 0.1 10*3/uL Normal 0.0-0.2 [facility] Comment on above: Order Comment: << On admission If not done in ED>> No: Do not add to previous draw Performed By: #### 0 0121, 84482, 24888, 83338, 56712 #### [facility] [address] ABS IMM GRANS 0.1 10*3/uL Normal 0.0-0.2 [facility] Comment on above: Order Comment: << On admission If not done in ED>> No: Do not add to previous draw Performed By: #### 0 0121, 17385, 08579, 65768, 86312 #### [facility] [address] ABS NEUTROPHILS 6.9 10*3/uL Normal 1.6-7.6 [facility] Comment on above: Order Comment: << On admission If not done in ED>> No: Do not add to previous draw Performed By: #### 0 0121, 01043, 59272, 40309, 43800 #### [facility] [address] Basophils/100 WBC (Bld) 0.8 % Normal 0.0-1.0 [facility] Comment on above: Order Comment: << On admission If not done in ED>> No: Do not add to previous draw Performed By: #### 0 0121, 80902, 17997, 85945, 04620 #### [facility] [address] [place] [address], [facility] Eosinophils (Bld) [#/Vol] 0.3 10*3/uL Normal 0.0-0.5 [facility] Comment on above: Order Comment: << On admission If not done in ED>> No: Do not add to previous draw Performed By: #### 0 0121, 83231, 69192, 38425, 19637 #### [facility] [address] [place] [address], [facility] Eosinophils/100 WBC (Bld) 2.8 % Normal 0.0-6.0 [facility] Comment on above: Order Comment: << On admission If not done in ED>> No: Do not add to previous draw Performed By: #### 0 0121, 64766, 71211, 78391, 09491 #### [facility] [address] Erythrocyte distribution width (RBC) [Ratio] 13.5 % Normal 11.5-15.0 [facility] Comment on above: Order Comment: << On admission If not done in ED>> No: Do not add to previous draw Performed By: #### 0 0121, 27607, 15261, 88760, 19370 #### [facility] [address] Hematocrit (Bld) [Volume fraction] 33.0 % Low 39.0-50.0 [facility] Comment on above: Order Comment: << On admission If not done in ED>> No: Do not add to previous draw Performed By: #### 0 0121, 15910, 64275, 76808, 89237 #### [facility] [address] [place] [address], [facility] Hemoglobin (Bld) [Mass/Vol] 10.4 g/dL Low 13.0-17.0 [facility] Comment on above: Order Comment: << On admission If not done in ED>> No: Do not add to previous draw Performed By: #### 0 0121, 32633, 13799, 72490, 39722 #### [facility] [address] [place] [address], [facility] IMMATURE GRANS 1.2 % High 0.0-1.0 The [facility] Comment on above: Order Comment: << On admission If not done in ED>> No: Do not add to previous draw Performed By: #### 0 0121, 73982, 29289, 64115, 82009 #### [facility] [address] Lymphocytes (Bld) [#/Vol] 1.5 10*3/uL Normal 1.2-4.0 [facility] Comment on above: Order Comment: << On admission If not done in ED>> No: Do not add to previous draw Performed By: #### 0 0121, 89032, 94810, 20229, 14955 #### [facility] [address] Lymphocytes/100 WBC (Bld) 14.4 % Low 20.0-45.0 [facility] Comment on above: Order Comment: << On admission If not done in ED>> No: Do not add to previous draw Performed By: #### 0 0121, 96652, 20148, 41287, 85105 #### [facility] [address] MCH (RBC) [Entitic mass] 28.8 pg Normal 27.0-33.0 [facility] Comment on above: Order Comment: << On admission If not done in ED>> No: Do not add to previous draw Performed By: #### 0 0121, 33066, 16839, 79886, 17696 #### [facility] [address] MCHC (RBC) [Mass/Vol] 31.5 g/dL Low 32.0-35.0 [facility] Comment on above: Order Comment: << On admission If not done in ED>> No: Do not add to previous draw Performed By: #### 0 0121, 79814, 56019, 47042, 13083 #### [facility] [address] [place] [address], [facility] MCV (RBC) [Entitic vol] 91.4 fL Normal 82.0-98.0 [facility] Comment on above: Order Comment: << On admission If not done in ED>> No: Do not add to previous draw Performed By: #### 0 0121, 88102, 58789, 88157, 35831 #### [facility] [address] [facility] [address], [facility] Monocytes (Bld) [#/Vol] 1.3 10*3/uL High 0.1-1.0 [facility] Comment on above: Order Comment: << On admission If not done in ED>> No: Do not add to previous draw Performed By: #### 0 0121, 88212, 19292, 75659, 28028 #### [facility] [address] [facility] [address], [facility] MONOS 13.1 % High 5.0-12.0 [facility] Comment on above: Order Comment: << On admission If not done in ED>> No: Do not add to previous draw Performed By: #### 0 0121, 58407, 60418, 91581, 14494 #### [facility] [address] [place] [address], [facility] Neutrophils/100 WBC (Bld) 67.7 % Normal 40.0-72.0 [facility] Comment on above: Order Comment: << On admission If not done in ED>> No: Do not add to previous draw Performed By: #### 0 0121, 71287, 06696, 55246, 10094 #### [facility] [address] [place] [address], [facility] Nucleated RBC/100 WBC (Bld) [Ratio] 0 % Normal 0-0 The [facility] Comment on above: Order Comment: << On admission If not done in ED>> No: Do not add to previous draw Performed By: #### 0 0121, 29284, 86366, 95571, 16036 #### [facility] [address] [place] [address], [facility] PLAT CNT 166 10*3/uL Normal 150-400 The [facility] Comment on above: Order Comment: << On admission If not done in ED>> No: Do not add to previous draw Performed By: #### 0 0121, 16476, 19058, 49035, 97816 #### [facility] [address] [place] [address], [facility] RBC (Bld) [#/Vol] 3.61 10*6/uL Low 4.20-5.70 The [facility] Comment on above: Order Comment: << On admission If not done in ED>> No: Do not add to previous draw Performed By: #### 0 0121, 26495, 07460, 71780, 58476 #### [facility] [address] [place] [address], [facility] WBC (Bld) [#/Vol] 10.21 10*3/uL Normal 4.00-10.60 [facility] Comment on above: Order Comment: << On admission If not done in ED>> No: Do not add to previous draw Performed By: #### 0 0121, 81042, 68010, 89628, 08187 #### [facility] [address] [place] [address], [facility] MAGNESIUM BLOODon 03-24-2019 Magnesium [Mass/Vol] 2.4 mg/dL Normal 1.9-2.7 [facility] Comment on above: Order Comment: << On admission If not done in ED>> No: Do not add to previous draw Performed By: #### 0 0121, 83065, 47747, 95489, 35098 #### [facility] [address] PHOSPHORUS BLOODon 9 Phosphate [Mass/Vol] 2.9 mg/dL Normal 2.5-5.0 [facility] Comment on above: Order Comment: << On admission If not done in ED>> No: Do not add to previous draw Performed By: #### 0 0121, 32732, 84189, 54031, 80790 #### [facility] [address] POC GLUCOSE LABon 03-24-2019 Glucose [Mass/Vol] 107 mg/dL High 70-100 [facility] Comment on above: Performed By: #### 0 0121, 06018, 17234, 57148, 83891 #### [facility] [address] [place], [place] [address] [place] [address] PORTABLE CHEST 1 VIEWon 03-01 PORTABLE CHEST 1 VIEW [facility] Department of Radiology [address] [place] [id number] ======== Patient Name: TRACIE CRAIN : 1965 Sex: M Age: Race: NA Pt. Location: [id number] Patient Status: I Ordered Date: 03/24/2019 4:00:00 [...] recommended. Electronically signed by:Scottie Fall. Transcribed by: [email or web address], User Resident: Electronically Signed by: SCOTTIE FALL @ 03/24/2019 10:43 AM Normal [facility] Comment on above: Order Comment: << On admission If not done in ED>> No: Do not add to previous draw POC GLUCOSE LABon 03-23-2019 Glucose [Mass/Vol] 150 mg/dL High 70-100 [facility] Comment on above: Performed By: #### 0 0121, 76724, 77040, 24908, 68861 #### [facility] [address] [place] [address], [place] Glucose [Mass/Vol] 110 mg/dL High 70-100 [facility] Comment on above: Performed By: #### 0 0121, 10840, 47802, 82028, 15849 #### [facility] [address] [place] [address], [place] Glucose [Mass/Vol] 112 mg/dL High 70-100 [facility] Comment on above: Performed By: #### 0 0121, 38427, 28217, 94247, 35022 #### [facility] [address] [place] [address], [place] Glucose [Mass/Vol] 93 mg/dL Normal 70-100 [facility] Comment on above: Performed By: #### 0 0121, 99629, 57316, 23763, 91307 #### [facility] [address] [place] [address], [place] ARTERIAL BLOOD GAS WITH ICAo n 03-22-2019 BASE EXCESS 4 mmol/L High -2-3 [facility] Comment on above: Performed By: #### 0 0121, 41233, 34258, 84365, 81901 #### [facility] [address] [place] [address], [place] [employer] NASAL CANNULA [facility] Comment on above: Performed By: #### 0 0121, 33247, 88540, 20118, 46021 #### [facility] [address] [place] [address], [place] HCO3 (Bld) [Moles/Vol] 27 mmol/L Normal 21-28 [facility] Comment on above: Performed By: #### 0 0121, 30060, 02180, 67204, 70901 #### [facility] [address] [place] [address], [place] IONIZED CALCIUM 1.14 mmol/L Normal 1.13-1.32 [facility] Comment on above: Performed By: #### 0 0121, 91068, 47787, 99583, 64918 #### [facility] [address] [place] [address], [place] LPM 6.0 LPM Normal [facility] Comment on above: Performed By: #### 0 0121, 60287, 52255, 34845, 99804 #### [facility] [address] [place] [address], [place] Oxygen (Bld) [Partial pressure] 70 mm[Hg] Low 83-108 The [facility] Comment on above: Performed By: #### 0 0121, 03750, 78880, 48269, 78645 #### [facility] [address] [place] [address], [facility] Oxygen saturation in Blood 93.0 % Low 94.0-97.0 [facility] Comment on above: Performed By: #### 0 0121, 68378, 63664, 33704, 29825 #### [facility] [address] [place] [address], [facility] PCO2 35 mmHg Normal 35-45 [facility] Comment on above: Performed By: #### 0 0121, 97784, 06677, 81301, 56052 #### [facility] [address] [place] [address], [facility] pH (Bld) 7.50 [pH] High 7.35-7.45 [facility] Comment on above: Result Comment: KINJAL REYNOSO NOTE: Effective 12/02/18, reference ranges for Respiratory GEM analyzers running arterial blood have been updated to reflect the tick sewer's published reference ranges. Performed By: #### 0 0121, 45674, 76083, 95727, 10258 #### [facility] [address] [place] [address], [facility] BASIC METABOLIC PANELon 06-2 Calcium [Mass/Vol] 8.9 mg/dL Normal 8.6-10.3 [facility] Comment on above: Order Comment: << On admission If not done in ED>> No: Do not add to previous draw Performed By: #### 0 0121, 46066, 92896, 63063, 83421 #### [facility] [address] [place] [address], [place] Chloride [Moles/Vol] 101 mmol/L Normal 98-107 [facility] Comment on above: Order Comment: << On admission If not done in ED>> No: Do not add to previous draw Performed By: #### 0 0121, 28785, 03069, 68991, 64376 #### [facility] [address] [place] [address], [facility] CO2 [Moles/Vol] 28 mmol/L Normal 21-31 The [facility] Comment on above: Order Comment: << On admission If not done in ED>> No: Do not add to previous draw Performed By: #### 0 0121, 67402, 08088, 57903, 18284 #### [facility] [address] [place] [address], [facility] Creatinine [Mass/Vol] 1.29 mg/dL Normal 0.70-1.30 [facility] Comment on above: Order Comment: << On admission If not done in ED>> No: Do not add to previous draw Performed By: #### 0 0121, 33946, 25764, 61731, 84827 #### [facility] [address] [place] [address], [facility] GFR/1.73 sq M predicted among blacks MDRD (S/P/Bld) [Vol rate/Area] mL/min/{1.73_m2} Normal >60 [facility] Comment on above: Order Comment: << On admission If not done in ED>> No: Do not add to previous draw Performed By: #### 0 0121, 11243, 94563, 58859, 81267 #### [facility] [address] [place] [address], [facility] GFR/1.73 sq M predicted among non-blacks MDRD (S/P/Bld) [Vol rate/Area] 58 ml/min/1.73sq m Abnormal >60 The [facility] Comment on above: Order Comment: << On admission If not done in ED>> No: Do not add to previous draw Performed By: #### 0 0121, 39225, 43887, 78199, 51857 #### [facility] [address] [place] [address], [facility] Glucose [Mass/Vol] 111 mg/dL High 70-100 [facility] Comment on above: Order Comment: << On admission If not done in ED>> No: Do not add to previous draw Performed By: #### 0 0121, 33601, 81084, 03416, 90362 #### [facility] [address] [place] [address], [facility] Sodium [Moles/Vol] 139 mmol/L Normal 136-145 [facility] Comment on above: Order Comment: << On admission If not done in ED>> No: Do not add to previous draw Performed By: #### 0 0121, 37177, 53721, 05948, 61665 #### [facility] [address] [place], [place] [address] [place] [address] Urea nitrogen [Mass/Vol] 23 mg/dL Normal 7-25 [facility] Comment on above: Order Comment: << On admission If not done in ED>> No: Do not add to previous draw Performed By: #### 0 0121, 00514, 61192, 53874, 21385 #### [facility] [address] [facility] [address] CBC COMPLETE BLOOD COUNTon 0 - Erythrocyte distribution width (RBC) [Ratio] 13.4 % Normal 11.5-15.0 [facility] Comment on above: Order Comment: << On admission If not done in ED>> No: Do not add to previous draw Performed By: #### 0 0121, 88680, 60511, 52138, 59378 #### [facility] [address] [place] [address], [facility] Hematocrit (Bld) [Volume fraction] 31.2 % Low 39.0-50.0 [facility] Comment on above: Order Comment: << On admission If not done in ED>> No: Do not add to previous draw Performed By: #### 0 0121, 93312, 17062, 98363, 02190 #### [facility] [address] [place] [address], [facility] Hemoglobin (Bld) [Mass/Vol] 10.3 g/dL Low 13.0-17.0 [facility] Comment on above: Order Comment: << On admission If not done in ED>> No: Do not add to previous draw Performed By: #### 0 0121, 67329, 72848, 60486, 80599 #### [facility] [address] [place] [address], [facility] MCH (RBC) [Entitic mass] 28.9 pg Normal 27.0-33.0 [facility] Comment on above: Order Comment: << On admission If not done in ED>> No: Do not add to previous draw Performed By: #### 0 0121, 06012, 82910, 31986, 77929 #### [facility] [address] [facility] MCHC (RBC) [Mass/Vol] 33.0 g/dL Normal 32.0-35.0 [facility] Comment on above: Order Comment: << On admission If not done in ED>> No: Do not add to previous draw Performed By: #### 0 0121, 38514, 49487, 98494, 47958 #### [facility] [address] [facility] [address] MCV (RBC) [Entitic vol] 87.4 fL Normal 82.0-98.0 [facility] Comment on above: Order Comment: << On admission If not done in ED>> No: Do not add to previous draw Performed By: #### 0 0121, 73505, 75196, 79455, 44186 #### [facility] [address] [facility] [address], [facility] Nucleated RBC/100 WBC (Bld) [Ratio] 0 % Normal 0-0 [facility] Comment on above: Order Comment: << On admission If not done in ED>> No: Do not add to previous draw Performed By: #### 0 0121, 81376, 56084, 73774, 51776 #### [facility] [address] [facility] [place] [address], [facility] PLAT CNT 88 10*3/uL Low 150-400 [facility] Comment on above: Order Comment: << On admission If not done in ED>> No: Do not add to previous draw Performed By: #### 0 0121, 66574, 58460, 89760, 96615 #### [facility] [address] [facility] [place] [address], [facility] RBC (Bld) [#/Vol] 3.57 10*6/uL Low 4.20-5.70 [facility] Comment on above: Order Comment: << On admission If not done in ED>> No: Do not add to previous draw Performed By: #### 0 0121, 62172, 35307, 49874, 58725 #### [facility] [address] [facility] [place] [address], [facility] WBC (Bld) [#/Vol] 13.95 10*3/uL High 4.00-10.60 [facility] Comment on above: Order Comment: << On admission If not done in ED>> No: Do not add to previous draw Performed By: #### 0 0121, 23580, 32807, 66771, 82880 #### [facility] [address] [facility] [place] [address], [facility] COOXIMETRYon 03-22-2019 COHB 2 % Normal [facility] Comment on above: Performed By: #### 0 0121, 13560, 78642, 46809, 29920 #### [facility] [address] [facility] [place] [address], [facility] METHB 1 % Normal [facility] Comment on above: Performed By: #### 0 0121, 02075, 99173, 56331, 65077 #### [facility] [address] [place] [address], [facility] Oxygen saturation in Blood 56.5 % Low 65.0-75.0 [facility] Comment on above: Performed By: #### 0 0121, 60288, 73310, 52273, 73539 #### [facility] [address] [place] [address], [facility] THB 9.9 g/dL Normal [facility] Comment on above: Performed By: #### 0 0121, 90290, 87667, 91657, 21476 #### [facility] [address] [place] [address], [facility] MAGNESIUM BLOODon 03-22-2019 Magnesium [Mass/Vol] 2.0 mg/dL Normal 1.9-2.7 [facility] Comment on above: Order Comment: << On admission If not done in ED>> No: Do not add to previous draw Performed By: #### 0 0121, 64073, 06454, 80554, 83873 #### [facility] [address] [place] [address], [facility] Magnesium [Mass/Vol] 1.9 mg/dL Normal 1.9-2.7 [facility] Comment on above: Order Comment: << On admission If not done in ED>> No: Do not add to previous draw Performed By: #### 0 0121, 76683, 28760, 23931, 26055 #### [facility] [address] [place] [address], [place] PHOSPHORUS BLOODon 9 Phosphate [Mass/Vol] 3.6 mg/dL Normal 2.5-5.0 [facility] Comment on above: Order Comment: << On admission If not done in ED>> No: Do not add to previous draw Performed By: #### 0 0121, 27905, 03509, 72485, 15944 #### [facility] [address] [place] [address], [place] POC GLUCOSE LABon 03-22-2019 Glucose [Mass/Vol] 111 mg/dL High 70-100 [facility] Comment on above: Performed By: #### 0 0121, 31164, 35271, 12345, 42041 #### [facility] [address] [place] [address], [place] Glucose [Mass/Vol] 108 mg/dL High 70-100 [facility] Comment on above: Performed By: #### 0 0121, 53127, 37843, 98118, 95200 #### [facility] [address] [place] [address], [place] Glucose [Mass/Vol] 109 mg/dL High 70-100 [facility] Comment on above: Performed By: #### 0 0121, 67222, 44010, 23574, 63086 #### [facility] [address] [facility] [place] [address], [place] Glucose [Mass/Vol] 99 mg/dL Normal 70-100 [facility] Comment on above: Performed By: #### 0 0121, 83616, 23100, 34353, 84376 #### [facility] [address] [place] [address], [place] Glucose [Mass/Vol] 91 mg/dL Normal 70-100 [facility] Comment on above: Performed By: #### 0 0121, 38018, 10694, 76372, 69058 #### [facility] [address] [facility] [place] [address], [place] PORTABLE CHEST 1 VIEWon 03-01 PORTABLE CHEST 1 VIEW [facility] Department of Radiology [address] [place] [id number] ======== Patient Name: TRACIE CRAIN : 1965 Sex: M Age: Race: NA Pt. Location: [id number] Patient Status: I Ordered Date: 03/22/2019 5:00:00 [...] removal of endotracheal and enteric tubes. Right-sided Pomona-Sher catheter is again seen with tip overlying [...] Small left pleural effusion, unchanged. 3. Right-sided Pomona-Sher catheter with tip projecting over the pulmonary trunk, unchanged. 4. Redemonstration of 2 chest tubes on the right, unchanged. Approved by:Cynthia Finley on 03/22/2019 8:06 AM EDT. IYenni, have reviewed the images and report and concur with these findings. Electronically signed by:Yenni Osuna. Transcribed by: [email or web address], User Resident: CYNTHIA FINLEY Electronically Signed by: YENNI OSUNA @ 03/22/2019 01:07 PM I personally read this/these film(s) with this resident Normal [facility] Comment on above: Order Comment: << On admission If not done in ED>> No: Do not add to previous draw POTASSIUM BLOODon 03-22-2019 Potassium [Moles/Vol] 3.1 mmol/L Low 3.5-5.1 [facility] Comment on above: Order Comment: << On admission If not done in ED>> No: Do not add to previous draw Performed By: #### 0 0121, 77320, 56898, 13135, 67734 #### [facility] [address] PROTHROMBIN TIMEon 9 INR Coag (PPP) [Relative time] 1.37 {INR} High 0.91-1.16 [facility] Comment on above: Order Comment: [...] CHEST 1995;[id number]. Performed By: #### 0 0121, 14370, 94427, 55940, 82160 #### [facility] [address] [place] [address], [facility] PT Coag (PPP) [Time] 16.9 s High 12.3-14.8 [facility] Comment on above: Order Comment: << On admission If not done in ED>> No: Do not add to previous draw Result Comment: ALL RESULTS MUST BE INTERPRETED WITH RESPECT TO BLOOD DRAWING ARTIFACT OR DILUTION ERROR OF ANTICOAGULANT AT THE TIME OF SAMPLING. Performed By: #### 0 0121, 97091, 20723, 94660, 20051 #### [facility] [address] [place] [address], [facility] ARTERIAL BLOOD GAS W/COOXon 03-21-2019 BASE EXCESS 1 mmol/L Normal -2-3 The [facility] Comment on above: Performed By: #### 0 0121, 09586, 32998, 24789, 44754 #### [facility] [address] [place] [address], [facility] COHB 1.4 % Normal 0.0-1.5 [facility] Comment on above: Performed By: #### 0 0121, 07572, 05539, 14546, 78742 #### [facility] [address] [place] [address], [facility] FIO2 40 % Normal [facility] Comment on above: Performed By: #### 0 0121, 50844, 70903, 02217, 57686 #### [facility] [address] [place] [address], [place] HCO3 (Bld) [Moles/Vol] 24 mmol/L Normal 21-28 [facility] Comment on above: Performed By: #### 0 0121, 85918, 83636, 13978, 91265 #### [facility] [address] [place] [address], [place] METHB 1.1 % Normal 0.0-1.5 [facility] Comment on above: Performed By: #### 0 0121, 40216, 67108, 39306, 22997 #### [facility] [address] [place] [address], [facility] MIN VOLUME 13.1 Normal [facility] Comment on above: Performed By: #### 0 0121, 44054, 23108, 83351, 33995 #### [facility] [address] [place] [address], [place] MODALITY Positive Normal [facility] Comment on above: Performed By: #### 0 0121, 27150, 75270, 45064, 88301 #### [facility] [address] [place] [address], [place] Oxygen (Bld) [Partial pressure] 86 mm[Hg] Normal 83-108 The [facility] Comment on above: Performed By: #### 0 0121, 17456, 04005, 74067, 40992 #### [facility] [address] [place] [address], [place] Oxygen saturation in Blood 94.8 % Normal 94.0-97.0 [facility] Comment on above: Performed By: #### 0 0121, 36342, 92785, 64408, 80985 #### [facility] [address] [place] [address], [place] PCO2 32 mmHg Low 35-45 [facility] Comment on above: Performed By: #### 0 0121, 01579, 26929, 90196, 87334 #### [facility] [address] [place] [address], [place] PEEP 8.0 CMH20 Normal [facility] Comment on above: Performed By: #### 0 0121, 88536, 82782, 41949, 20600 #### [facility] [address] [place] [address], [place] pH (Bld) 7.49 [pH] High 7.35-7.45 [facility] Comment on above: Result Comment: KINJAL REYNOSO NOTE: Effective 12/02/18, reference ranges for Respiratory GEM analyzers running arterial blood have been updated to reflect the tick sewer's published reference ranges. Performed By: #### 0 0121, 76249, 76846, 11959, 01771 #### [facility] [address] [place] [address], [facility] PRESSURE SUPPORT 5 Normal [facility] Comment on above: Performed By: #### 0 0121, 10876, 74738, 56405, 72008 #### [facility] [address] [place] [address], [facility] THB 10.3 g/dL Low 12.0-16.3 [facility] Comment on above: Performed By: #### 0 0121, 37079, 93438, 57799, 64642 #### [facility] [address] [place] [address], [facility] ARTERIAL BLOOD GAS WITH ICAo n 03-21-2019 BASE EXCESS 4 mmol/L High -2-3 The [facility] Comment on above: Performed By: #### 0 0121, 32226, 53723, 92360, 51317 #### [facility] [address] [place] [id number], [facility] [employer] [place] Normal [facility] Comment on above: Performed By: #### 0 0121, 50668, 24049, 49516, 13006 #### [facility] [address] [place] [address], [facility] HCO3 (Bld) [Moles/Vol] 27 mmol/L Normal 21-28 [facility] Comment on above: Performed By: #### 0 0121, 00622, 24876, 62836, 12208 #### [facility] [address] [place] [address], [facility] IONIZED CALCIUM 1.17 mmol/L Normal 1.13-1.32 [facility] Comment on above: Performed By: #### 0 0121, 62356, 73017, 01549, 56974 #### [facility] [address] [place] [address], [place] LPM 6.0 LPM Normal [facility] Comment on above: Performed By: #### 0 0121, 82968, 34939, 64353, 03661 #### [facility] [address] [place] [address], [place] Oxygen (Bld) [Partial pressure] 67 mm[Hg] Low 83-108 [facility] Comment on above: Performed By: #### 0 0121, 34017, 49640, 81316, 41814 #### [facility] [address] [place] [address], [facility] Oxygen saturation in Blood 92.7 % Low 94.0-97.0 [facility] Comment on above: Performed By: #### 0 0121, 65631, 42463, 56236, 34428 #### [facility] [address] [place] [address], [place] PCO2 36 mmHg Normal 35-45 [facility] Comment on above: Performed By: #### 0 0121, 85605, 84724, 74198, 86435 #### [facility] [address] [place] [address], [place] pH (Bld) 7.49 [pH] High 7.35-7.45 [facility] Comment on above: Result Comment: KINJAL REYNOSO NOTE: Effective 12/02/18, reference ranges for Respiratory GEM analyzers running arterial blood have been updated to reflect the tick sewer's published reference ranges. Performed By: #### 0 0121, 59981, 14153, 56738, 98379 #### [facility] [address] [place] [address], [place] BASE EXCESS 1 mmol/L Normal -2-3 The [facility] Comment on above: Performed By: #### 0 0121, 88479, 66301, 84541, 52475 #### [facility] [address] [place] [address], [facility] DEL[employer]ERY SYSTEMS VENTILATOR Normal [facility] Comment on above: Performed By: #### 0 0121, 67852, 50728, 34289, 72261 #### [facility] [address] [place] [address], [place] FIO2 40 % Normal [facility] Comment on above: Performed By: #### 0 0121, 14781, 46972, 35147, 57177 #### [facility] [address] [place] [address], [facility] HCO3 (Bld) [Moles/Vol] 24 mmol/L Normal 21-28 [facility] Comment on above: Performed By: #### 0 0121, 72219, 20126, 09587, 73853 #### [facility] [address] [place] [address], [facility] IONIZED CALCIUM 1.07 mmol/L Low 1.13-1.32 [facility] Comment on above: Performed By: #### 0 0121, 55570, 88156, 76230, 57405 #### [facility] [address] [place] [address], [place] MIN VOLUME 15.6 Normal [facility] Comment on above: Performed By: #### 0 0121, 20064, 02969, 79462, 64650 #### [facility] [address] [place] [address], [place] MODALITY Positive Normal [facility] Comment on above: Performed By: #### 0 0121, 15668, 84705, 72328, 14329 #### [facility] [address] [place] [address], [place] Oxygen (Bld) [Partial pressure] 89 mm[Hg] Normal 83-108 The [facility] Comment on above: Performed By: #### 0 0121, 76748, 88400, 39497, 63025 #### [facility] [address] [place] [address], [place] Oxygen saturation in Blood 94.7 % Normal 94.0-97.0 [facility] Comment on above: Performed By: #### 0 0121, 00815, 93795, 92307, 99492 #### [facility] [address] [place] [address], [place] PCO2 30 mmHg Low 35-45 [facility] Comment on above: Performed By: #### 0 0121, 75136, 11915, 66542, 99741 #### [facility] [address] [place] [address], [place] PEEP 8.0 CMH20 Normal [facility] Comment on above: Performed By: #### 0 0121, 01117, 65490, 50946, 19743 #### [facility] [address] [place] [address], [place] pH (Bld) 7.51 [pH] High 7.35-7.45 [facility] Comment on above: Result Comment: KINJAL REYNOSO NOTE: Effective 12/02/18, reference ranges for Respiratory GEM analyzers running arterial blood have been updated to reflect the tick sewer's published reference ranges. Performed By: #### 0 0121, 69988, 15828, 25396, 46612 #### [facility] [address] [place] [address], [place] PRESSURE SUPPORT 10 Normal [facility] Comment on above: Performed By: #### 0 0121, 89922, 91116, 17687, 08324 #### [facility] [address] [place] [address], [place] BASE EXCESS 0 mmol/L Normal -2-3 The [facility] [place] [facility] Comment on above: Performed By: #### 0 0121, 57223, 54470, 97180, 21728 #### [facility] [address] [place] [address], [facility] [employer] MV Normal [facility] Comment on above: Performed By: #### 0 0121, 11150, 05821, 67611, 05069 #### [facility] [address] [place] [address], [facility] FIO2 40 % Normal [facility] Comment on above: Performed By: #### 0 0121, 03913, 71957, 12820, 18841 #### [facility] [address] [place] [address], [facility] HCO3 (Bld) [Moles/Vol] 23 mmol/L Normal 21-28 [facility] Comment on above: Performed By: #### 0 0121, 41895, 76825, 77176, 73101 #### [facility] [address] [place] [address], [facility] IONIZED CALCIUM 1.07 mmol/L Low 1.13-1.32 [facility] Comment on above: Performed By: #### 0 0121, 07351, 26057, 22010, 55829 #### [facility] [address] [place] [address], [facility] MIN VOLUME 17.0 Normal [facility] Comment on above: Performed By: #### 0 0121, 94487, 54033, 48797, 02693 #### [facility] [address] [place] [address], [facility] MODALITY AC Normal [facility] Comment on above: Performed By: #### 0 0121, 39856, 24370, 04819, 42035 #### [facility] [address] [place] [address], [facility] Oxygen (Bld) [Partial pressure] 94 mm[Hg] Normal 83-108 The [facility] Comment on above: Performed By: #### 0 0121, 33044, 80484, 10343, 00349 #### [facility] [address] [place] [address], [place] Oxygen saturation in Blood 95.1 % Normal 94.0-97.0 [facility] Comment on above: Performed By: #### 0 0121, 95085, 81438, 80853, 70326 #### [facility] [address] [place] [address], [place] PCO2 30 mmHg Low 35-45 [facility] Comment on above: Performed By: #### 0 0121, 41595, 96125, 25656, 12120 #### [facility] [address] [place] [address], [place] PEEP 8.0 CMH20 Normal [facility] Comment on above: Performed By: #### 0 0121, 51497, 02127, 38349, 02759 #### [facility] [address] [place] [address], [place] pH (Bld) 7.49 [pH] High 7.35-7.45 [facility] Comment on above: Result Comment: KINJAL REYNOSO NOTE: Effective 12/02/18, reference ranges for Respiratory GEM analyzers running arterial blood have been updated to reflect the tick sewer's published reference ranges. Performed By: #### 0 0121, 86741, 62049, 61761, 31897 #### [facility] [address] [place] [address], [place] TIDAL VOLUME (VT) CC 700 cc Normal [facility] Comment on above: Performed By: #### 0 0121, 07493, 04141, 49467, 00441 #### [facility] [address] [place] [address], [place] BASE EXCESS 0 mmol/L Normal -2-3 The [facility] Comment on above: Performed By: #### 0 0121, 83302, 01725, 02994, 40521 #### [facility] [address] [place] [id number], [facility] DEL[employer]ERY [employer] MV Normal [facility] Comment on above: Performed By: #### 0 0121, 22439, 00193, 60279, 50782 #### [facility] [address] [place] [address], [place] FIO2 50 % Normal [facility] Comment on above: Performed By: #### 0 0121, 67294, 74773, 47685, 67036 #### [facility] [address] [place] [address], [facility] HCO3 (Bld) [Moles/Vol] 23 mmol/L Normal 21-28 [facility] Comment on above: Performed By: #### 0 0121, 82170, 68604, 89558, 97493 #### [facility] [address] [place] [address], [facility] IONIZED CALCIUM 1.14 mmol/L Normal 1.13-1.32 [facility] Comment on above: Performed By: #### 0 0121, 70953, 76236, 42071, 66855 #### [facility] [address] [place] [address], [facility] MIN VOLUME 13.3 Normal [facility] Comment on above: Performed By: #### 0 0121, 85151, 20213, 19986, 24686 #### [facility] [address] [place] [address], [place] MODALITY AC Normal [facility] Comment on above: Performed By: #### 0 0121, 81246, 49282, 04095, 27527 #### [facility] [address] [place] [address], [place] Oxygen (Bld) [Partial pressure] 71 mm[Hg] Low 83-108 The [facility] Comment on above: Performed By: #### 0 0121, 68228, 62068, 67159, 02214 #### [facility] [address] [place] [address], [place] Oxygen saturation in Blood 92.6 % Low 94.0-97.0 [facility] Comment on above: Performed By: #### 0 0121, 84107, 41597, 60282, 29526 #### [facility] [address] [place] [address], [place] PCO2 31 mmHg Low 35-45 [facility] Comment on above: Performed By: #### 0 0121, 51524, 99477, 32918, 33827 #### [facility] [address] [place] [address], [place] PEEP 8.0 CMH20 Normal [facility] Comment on above: Performed By: #### 0 0121, 03196, 65533, 41016, 39055 #### [facility] [address] [place] [address], [place] PF RATIO 142 mmHg Normal [facility] Comment on above: Performed By: #### 0 0121, 54530, 68561, 57683, 93269 #### [facility] [address] [place] [address], [place] pH (Bld) 7.47 [pH] High 7.35-7.45 [facility] Comment on above: Result Comment: KINJAL SE NOTE: Effective 12/02/18, reference ranges for Respiratory GEM analyzers running arterial blood have been updated to reflect the tick sewer's published reference ranges. Performed By: #### 0 0121, 56732, 56269, 75214, 78960 #### [facility] [address] [place] [address], [place] TIDAL VOLUME (VT) CC 700 cc Normal [facility] Comment on above: Performed By: #### 0 0121, 80751, 38889, 12561, 91715 #### [facility] [address] [place] [address], [facility] BASIC METABOLIC PANELon 06-2 Calcium [Mass/Vol] 8.6 mg/dL Normal 8.6-10.3 [facility] Comment on above: Order Comment: << On admission If not done in ED>> No: Do not add to previous draw Performed By: #### 0 [id number], [id number], [id number], [id number], [id number] #### [facility] [address] [place] [address], [facility] Chloride [Moles/Vol] 104 mmol/L Normal 98-107 [facility] Comment on above: Order Comment: << On admission If not done in ED>> No: Do not add to previous draw Performed By: #### 0 [id number], [id number], [id number], [id number], [id number] #### [facility] [address] [place], [place] [address], [facility] CO2 [Moles/Vol] 26 mmol/L Normal 21-31 [facility] Comment on above: Order Comment: << On admission If not done in ED>> No: Do not add to previous draw Performed By: #### 0 0121, 85009, 54179, 89272, 58363 #### [facility] [address] [place] [address], [facility] Creatinine [Mass/Vol] 1.48 mg/dL High 0.70-1.30 [facility] Comment on above: Order Comment: << On admission If not done in ED>> No: Do not add to previous draw Performed By: #### 0 0121, 29642, 09229, 86418, 87174 #### [facility] [address] [place] [address], [facility] GFR/1.73 sq M predicted among blacks MDRD (S/P/Bld) [Vol rate/Area] 60 ml/min/1.73sq m Abnormal >60 The [facility] Comment on above: Order Comment: << On admission If not done in ED>> No: Do not add to previous draw Performed By: #### 0 0121, 68085, 87325, 56603, 92992 #### [facility] [address] [place] [address], [facility] GFR/1.73 sq M predicted among non-blacks MDRD (S/P/Bld) [Vol rate/Area] 50 ml/min/1.73sq m Abnormal >60 The [facility] Comment on above: Order Comment: << On admission If not done in ED>> No: Do not add to previous draw Performed By: #### 0 0121, 19113, 70825, 61397, 67091 #### [facility] [address] [place] [address], [facility] Glucose [Mass/Vol] 115 mg/dL High 70-100 [facility] Comment on above: Order Comment: << On admission If not done in ED>> No: Do not add to previous draw Performed By: #### 0 0121, 22351, 19236, 50828, 49189 #### [facility] [address] [place] [address], [facility] Potassium [Moles/Vol] 3.4 mmol/L Low 3.5-5.1 [facility] Comment on above: Order Comment: << On admission If not done in ED>> No: Do not add to previous draw Performed By: #### 0 0121, 89380, 13003, 79460, 28904 #### [facility] [address] [place] [address], [place] Sodium [Moles/Vol] 138 mmol/L Normal 136-145 [facility] Comment on above: Order Comment: << On admission If not done in ED>> No: Do not add to previous draw Performed By: #### 0 0121, 67824, 04403, 84118, 22233 #### [facility] [address] [place] [address], [place] Urea nitrogen [Mass/Vol] 23 mg/dL Normal 7-25 [facility] Comment on above: Order Comment: << On admission If not done in ED>> No: Do not add to previous draw Performed By: #### 0 0121, 50899, 34829, 89527, 33227 #### [facility] [address] [place] [address], [place] Calcium [Mass/Vol] 8.1 mg/dL Low 8.6-10.3 [facility] Comment on above: Order Comment: << On admission If not done in ED>> No: Do not add to previous draw Performed By: #### 0 0121, 27035, 95695, 92816, 11701 #### [facility] [address] [place] [address], [place] Chloride [Moles/Vol] 105 mmol/L Normal 98-107 [facility] Comment on above: Order Comment: << On admission If not done in ED>> No: Do not add to previous draw Performed By: #### 0 0121, 52071, 96591, 65601, 84736 #### [facility] [address] [place] [address], [place] CO2 [Moles/Vol] 26 mmol/L Normal 21-31 [facility] Comment on above: Order Comment: << On admission If not done in ED>> No: Do not add to previous draw Performed By: #### 0 0121, 30126, 81885, 12535, 35714 #### [facility] [address] [place] [address], [place] Creatinine [Mass/Vol] 1.37 mg/dL High 0.70-1.30 [facility] Comment on above: Order Comment: << On admission If not done in ED>> No: Do not add to previous draw Performed By: #### 0 0121, 29098, 17367, 88364, 21327 #### [facility] [address] [place] [address], [place] GFR/1.73 sq M predicted among blacks MDRD (S/P/Bld) [Vol rate/Area] mL/min/{1.73_m2} Normal >60 [facility] Comment on above: Order Comment: << On admission If not done in ED>> No: Do not add to previous draw Performed By: #### 0 0121, 99271, 01794, 77709, 60682 #### [facility] [address] [place] [address], [place] GFR/1.73 sq M predicted among non-blacks MDRD (S/P/Bld) [Vol rate/Area] 54 ml/min/1.73sq m Abnormal >60 The [facility] Comment on above: Order Comment: << On admission If not done in ED>> No: Do not add to previous draw Performed By: #### 0 0121, 36540, 04993, 16156, 85078 #### [facility] [address] [place] [address], [place] Glucose [Mass/Vol] 113 mg/dL High 70-100 [facility] Comment on above: Order Comment: << On admission If not done in ED>> No: Do not add to previous draw Performed By: #### 0 0121, 09448, 19830, 88714, 47993 #### [facility] [address] [place] [address], [place] Potassium [Moles/Vol] 3.3 mmol/L Low 3.5-5.1 [facility] Comment on above: Order Comment: << On admission If not done in ED>> No: Do not add to previous draw Performed By: #### 0 0121, 12668, 50437, 36979, 43846 #### [facility] [address] [place] [address], [place] Sodium [Moles/Vol] 138 mmol/L Normal 136-145 [facility] Comment on above: Order Comment: << On admission If not done in ED>> No: Do not add to previous draw Performed By: #### 0 0121, 04135, 10401, 88859, 29818 #### [facility] [address] [place] [address], [place] Urea nitrogen [Mass/Vol] 19 mg/dL Normal 7-25 [facility] Comment on above: Order Comment: << On admission If not done in ED>> No: Do not add to previous draw Performed By: #### 0 0121, 70130, 57834, 88474, 62426 #### [facility] [address] [place] [address], [place] Calcium [Mass/Vol] 7.4 mg/dL Low 8.6-10.3 [facility] Comment on above: Order Comment: << On admission If not done in ED>> No: Do not add to previous draw Performed By: #### 0 0121, 97469, 92263, 46610, 58026 #### [facility] [address] [place] [address], [place] Chloride [Moles/Vol] 109 mmol/L High 98-107 [facility] Comment on above: Order Comment: << On admission If not done in ED>> No: Do not add to previous draw Performed By: #### 0 0121, 71553, 32649, 27917, 94175 #### [facility] [address] [place] [address], [place] CO2 [Moles/Vol] 21 mmol/L Normal 21-31 The [facility] Comment on above: Order Comment: << On admission If not done in ED>> No: Do not add to previous draw Performed By: #### 0 0121, 60541, 35383, 91333, 27464 #### [facility] [address] [place] [address], [place] Creatinine [Mass/Vol] 1.22 mg/dL Normal 0.70-1.30 [facility] Comment on above: Order Comment: << On admission If not done in ED>> No: Do not add to previous draw Performed By: #### 0 0121, 57116, 29379, 38105, 87358 #### [facility] [address] [place] [address], [facility] GFR/1.73 sq M predicted among blacks MDRD (S/P/Bld) [Vol rate/Area] mL/min/{1.73_m2} Normal >60 [facility] Comment on above: Order Comment: << On admission If not done in ED>> No: Do not add to previous draw Performed By: #### 0 0121, 82753, 85507, 73374, 25793 #### [facility] [address] [place] [address], [facility] GFR/1.73 sq M predicted among non-blacks MDRD (S/P/Bld) [Vol rate/Area] mL/min/{1.73_m2} Normal >60 [facility] Comment on above: Order Comment: << On admission If not done in ED>> No: Do not add to previous draw Performed By: #### 0 0121, 49066, 95355, 45657, 06531 #### [facility] [address] [place] [address], [facility] Glucose [Mass/Vol] 129 mg/dL High 70-100 [facility] Comment on above: Order Comment: << On admission If not done in ED>> No: Do not add to previous draw Performed By: #### 0 0121, 26709, 83458, 88749, 60068 #### [facility] [address] [place] [address], [facility] Potassium [Moles/Vol] 3.1 mmol/L Low 3.5-5.1 [facility] Comment on above: Order Comment: << On admission If not done in ED>> No: Do not add to previous draw Performed By: #### 0 0121, 34225, 58028, 83858, 85680 #### [facility] [address] [place] [id number], [facility] Sodium [Moles/Vol] 139 mmol/L Normal 136-145 [facility] Comment on above: Order Comment: << On admission If not done in ED>> No: Do not add to previous draw Performed By: #### 0 0121, 75657, 27018, 54157, 93222 #### [facility] [address] [place] [id number], [facility] Urea nitrogen [Mass/Vol] 17 mg/dL Normal 7-25 [facility] Comment on above: Order Comment: << On admission If not done in ED>> No: Do not add to previous draw Performed By: #### 0 0121, 16636, 69412, 05582, 41682 #### [facility] [address] CBC COMPLETE BLOOD COUNTon 0 - Erythrocyte distribution width (RBC) [Ratio] 13.5 % Normal 11.5-15.0 [facility] Comment on above: Order Comment: << On admission If not done in ED>> No: Do not add to previous draw Performed By: #### 0 0121, 20808, 75012, 67809, 86493 #### [facility] [address] [place] [address], [facility] Hematocrit (Bld) [Volume fraction] 33.7 % Low 39.0-50.0 [facility] Comment on above: Order Comment: << On admission If not done in ED>> No: Do not add to previous draw Performed By: #### 0 0121, 44062, 76157, 44203, 74536 #### [facility] [address] [place] [address], [facility] Hemoglobin (Bld) [Mass/Vol] 10.9 g/dL Low 13.0-17.0 [facility] Comment on above: Order Comment: << On admission If not done in ED>> No: Do not add to previous draw Performed By: #### 0 0121, 90153, 81296, 21274, 85035 #### [facility] [address] [place] [address], [facility] MCH (RBC) [Entitic mass] 29.3 pg Normal 27.0-33.0 [facility] Comment on above: Order Comment: << On admission If not done in ED>> No: Do not add to previous draw Performed By: #### 0 0121, 86644, 93488, 15873, 35228 #### [facility] [address] [place] [address], [facility] MCHC (RBC) [Mass/Vol] 32.3 g/dL Normal 32.0-35.0 [facility] Comment on above: Order Comment: << On admission If not done in ED>> No: Do not add to previous draw Performed By: #### 0 0121, 86713, 61460, 60353, 57383 #### [facility] [address] [place] [address], [facility] MCV (RBC) [Entitic vol] 90.6 fL Normal 82.0-98.0 [facility] Comment on above: Order Comment: << On admission If not done in ED>> No: Do not add to previous draw Performed By: #### 0 0121, 66579, 38812, 67882, 17107 #### [facility] [address] [facility] [place] [address], [facility] Nucleated RBC/100 WBC (Bld) [Ratio] 0 % Normal 0-0 [facility] Comment on above: Order Comment: << On admission If not done in ED>> No: Do not add to previous draw Performed By: #### 0 0121, 52207, 30609, 00090, 25900 #### [facility] [address] [place] [address], [facility] PLAT CNT 100 10*3/uL Low 150-400 The [facility] Comment on above: Order Comment: << On admission If not done in ED>> No: Do not add to previous draw Performed By: #### 0 0121, 38815, 69879, 85231, 13327 #### [facility] [address] [place] [place] [address], [facility] RBC (Bld) [#/Vol] 3.72 10*6/uL Low 4.20-5.70 [facility] Comment on above: Order Comment: << On admission If not done in ED>> No: Do not add to previous draw Performed By: #### 0 0121, 32676, 51376, 66064, 71860 #### [facility] [address] [facility] [address], [facility] WBC (Bld) [#/Vol] 17.24 10*3/uL High 4.00-10.60 [facility] Comment on above: Order Comment: << On admission If not done in ED>> No: Do not add to previous draw Performed By: #### 0 0121, 42631, 44117, 08065, 92966 #### [facility] [address] [facility] [address], [facility] Erythrocyte distribution width (RBC) [Ratio] 13.5 % Normal 11.5-15.0 [facility] Comment on above: Order Comment: << On admission If not done in ED>> No: Do not add to previous draw Performed By: #### 0 0121, 23410, 22599, 27679, 72574 #### [facility] [address] [facility] [address], [facility] Hematocrit (Bld) [Volume fraction] 35.2 % Low 39.0-50.0 [facility] Comment on above: Order Comment: << On admission If not done in ED>> No: Do not add to previous draw Performed By: #### 0 0121, 71981, 00642, 20278, 65978 #### [facility] [address] [place] [address], [facility] Hemoglobin (Bld) [Mass/Vol] 11.5 g/dL Low 13.0-17.0 [facility] Comment on above: Order Comment: << On admission If not done in ED>> No: Do not add to previous draw Performed By: #### 0 0121, 27636, 21098, 30291, 93605 #### [facility] [address] [place] [address], [facility] IMM PLATELET FRAC 4.3 % Normal 0.8-6.3 The [facility] Comment on above: Order Comment: << On admission If not done in ED>> No: Do not add to previous draw Performed By: #### 0 0121, 23230, 15006, 18094, 10366 #### [facility] [address] [place] [address], [facility] MCH (RBC) [Entitic mass] 29.4 pg Normal 27.0-33.0 [facility] Comment on above: Order Comment: << On admission If not done in ED>> No: Do not add to previous draw Performed By: #### 0 0121, 44369, 75757, 83255, 72674 #### [facility] [address] MCHC (RBC) [Mass/Vol] 32.7 g/dL Normal 32.0-35.0 [facility] Comment on above: Order Comment: << On admission If not done in ED>> No: Do not add to previous draw Performed By: #### 0 0121, 45803, 81523, 34345, 54246 #### [facility] [address] [place] [address], [facility] MCV (RBC) [Entitic vol] 90.0 fL Normal 82.0-98.0 [facility] Comment on above: Order Comment: << On admission If not done in ED>> No: Do not add to previous draw Performed By: #### 0 0121, 24949, 01407, 32241, 51017 #### [facility] [address] [place] [address], [facility] Nucleated RBC/100 WBC (Bld) [Ratio] 0 % Normal 0-0 [facility] Comment on above: Order Comment: << On admission If not done in ED>> No: Do not add to previous draw Performed By: #### 0 0121, 43881, 94750, 06548, 88421 #### [facility] [address] [place] [place] [address], [facility] PLAT CNT 99 10*3/uL Low 150-400 [facility] Comment on above: Order Comment: << On admission If not done in ED>> No: Do not add to previous draw Performed By: #### 0 0121, 29557, 55663, 17583, 21425 #### [facility] [address] [facility] [address], [facility] RBC (Bld) [#/Vol] 3.91 10*6/uL Low 4.20-5.70 [facility] Comment on above: Order Comment: << On admission If not done in ED>> No: Do not add to previous draw Performed By: #### 0 0121, 71170, 23648, 93658, 45555 #### [facility] [address] [place] [address], [facility] WBC (Bld) [#/Vol] 19.55 10*3/uL High 4.00-10.60 [facility] Comment on above: Order Comment: << On admission If not done in ED>> No: Do not add to previous draw Performed By: #### 0 0121, 04666, 39574, 04422, 39137 #### [facility] [address] [place] [address], [facility] Erythrocyte distribution width (RBC) [Ratio] 13.5 % Normal 11.5-15.0 [facility] Comment on above: Order Comment: << On admission If not done in ED>> No: Do not add to previous draw Performed By: #### 0 0121, 82238, 48348, 24853, 57767 #### [facility] [address] [place] [address], [facility] Hematocrit (Bld) [Volume fraction] 38.1 % Low 39.0-50.0 [facility] Comment on above: Order Comment: << On admission If not done in ED>> No: Do not add to previous draw Performed By: #### 0 0121, 04034, 53768, 06771, 38140 #### [facility] [address] Hemoglobin (Bld) [Mass/Vol] 12.2 g/dL Low 13.0-17.0 [facility] Comment on above: Order Comment: << On admission If not done in ED>> No: Do not add to previous draw Performed By: #### 0 0121, 51948, 62275, 84918, 58759 #### [facility] [address] IMM PLATELET FRAC 3.8 % Normal 0.8-6.3 [facility] Comment on above: Order Comment: << On admission If not done in ED>> No: Do not add to previous draw Performed By: #### 0 0121, 90835, 14552, 69751, 78435 #### [facility] [address] [place] [address], [facility] MCH (RBC) [Entitic mass] 29.0 pg Normal 27.0-33.0 [facility] Comment on above: Order Comment: << On admission If not done in ED>> No: Do not add to previous draw Performed By: #### 0 0121, 51314, 86392, 13020, 17024 #### [facility] [address] MCHC (RBC) [Mass/Vol] 32.0 g/dL Normal 32.0-35.0 [facility] Comment on above: Order Comment: << On admission If not done in ED>> No: Do not add to previous draw Performed By: #### 0 0121, 65915, 27314, 33938, 69698 #### [facility] [address] MCV (RBC) [Entitic vol] 90.7 fL Normal 82.0-98.0 [facility] Comment on above: Order Comment: << On admission If not done in ED>> No: Do not add to previous draw Performed By: #### 0 0121, 45523, 18019, 43176, 69774 #### [facility] [address] Nucleated RBC/100 WBC (Bld) [Ratio] 0 % Normal 0-0 [facility] Comment on above: Order Comment: << On admission If not done in ED>> No: Do not add to previous draw Performed By: #### 0 0121, 93957, 73227, 83359, 62708 #### [facility] [address] PLAT CNT 112 10*3/uL Low 150-400 The [facility] Comment on above: Order Comment: << On admission If not done in ED>> No: Do not add to previous draw Performed By: #### 0 0121, 88160, 64719, 23231, 77879 #### [facility] [address] [place] [address], [facility] RBC (Bld) [#/Vol] 4.20 10*6/uL Normal 4.20-5.70 [facility] Comment on above: Order Comment: << On admission If not done in ED>> No: Do not add to previous draw Performed By: #### 0 0121, 06115, 39844, 47317, 41420 #### [facility] [address] [place] [address], [facility] WBC (Bld) [#/Vol] 21.05 10*3/uL High 4.00-10.60 [facility] Comment on above: Order Comment: << On admission If not done in ED>> No: Do not add to previous draw Performed By: #### 0 0121, 47523, 88367, 89356, 78924 #### [facility] [address] [place] [address], [place] COOXIMETRYon 03-21-2019 COHB 1 % Normal [facility] Comment on above: Performed By: #### 0 0121, 61041, 84392, 40119, 66073 #### [facility] [address] [place] [address], [place] METHB 1 % Normal [facility] Comment on above: Performed By: #### 0 0121, 45463, 10259, 41974, 04522 #### [facility] [address] [place] [address], [facility] Oxygen saturation in Blood 59.8 % Low 65.0-75.0 [facility] Comment on above: Performed By: #### 0 0121, 53096, 81855, 00899, 57861 #### [facility] [address] [place] [address], [place] THB 10.9 g/dL Normal [facility] Comment on above: Performed By: #### 0 0121, 04987, 09009, 28508, 16252 #### [facility] [address] [place] [address], [place] COHB 2 % Normal [facility] Comment on above: Performed By: #### 0 0121, 05084, 53867, 06550, 21627 #### [facility] [address] [place] [address], [place] METHB 1 % Normal [facility] Comment on above: Performed By: #### 0 0121, 01783, 89283, 65794, 38084 #### [facility] [address] [place] [address], [place] Oxygen saturation in Blood 70.2 % Normal 65.0-75.0 [facility] Comment on above: Performed By: #### 0 0121, 78547, 01472, 01276, 97909 #### [facility] [address] [place] [address], [place] THB 11.5 g/dL Normal [facility] Comment on above: Performed By: #### 0 0121, 56708, 12622, 52069, 19070 #### [facility] [address] [place] [address], [facility] MAGNESIUM BLOODon 03-21-2019 Magnesium [Mass/Vol] 2.1 mg/dL Normal 1.9-2.7 [facility] Comment on above: Order Comment: << On admission If not done in ED>> No: Do not add to previous draw Performed By: #### 0 0121, 87855, 57964, 47491, 28222 #### [facility] [address] [place] [address], [place] Magnesium [Mass/Vol] 2.1 mg/dL Normal 1.9-2.7 [facility] Comment on above: Order Comment: << On admission If not done in ED>> No: Do not add to previous draw Performed By: #### 0 0121, 95995, 55951, 22250, 59871 #### [facility] [address] [place] [address], [place] Magnesium [Mass/Vol] 2.2 mg/dL Normal 1.9-2.7 [facility] Comment on above: Order Comment: << On admission If not done in ED>> No: Do not add to previous draw Performed By: #### 0 0121, 40604, 78862, 78720, 15084 #### [facility] [address] [place] [address], [place] POC GLUCOSE LABon 03-21-2019 Glucose [Mass/Vol] 107 mg/dL High 70-100 [facility] Comment on above: Performed By: #### 0 0121, 67113, 97085, 66826, 73734 #### [facility] [address] [place] [address], [place] Glucose [Mass/Vol] 103 mg/dL High 70-100 [facility] Comment on above: Performed By: #### 0 0121, 30810, 69672, 81493, 64491 #### [facility] [address] [place] [address], [place] Glucose [Mass/Vol] 112 mg/dL High 70-100 [facility] Comment on above: Performed By: #### 0 0121, 91365, 18442, 85025, 50312 #### [facility] [address] [place] [address], [place] Glucose [Mass/Vol] 127 mg/dL High 70-100 [facility] Comment on above: Performed By: #### 0 0121, 19319, 09746, 36052, 03804 #### [facility] [address] [place] [address], [place] Glucose [Mass/Vol] 95 mg/dL Normal 70-100 [facility] Comment on above: Performed By: #### 0 0121, 43706, 37308, 33604, 77683 #### [facility] [address] [place] [address], [place] Glucose [Mass/Vol] 104 mg/dL High 70-100 The [facility] Comment on above: Performed By: #### 0 0121, 21436, 07914, 94445, 28980 #### [facility] [address] [place] [address], [place] Glucose [Mass/Vol] 98 mg/dL Normal 70-100 [facility] Comment on above: Performed By: #### 0 0121, 47150, 06156, 12314, 57458 #### [facility] [address] [place] [address], [place] Glucose [Mass/Vol] 113 mg/dL High 70-100 [facility] Comment on above: Performed By: #### 0 0121, 64783, 94073, 38767, 69631 #### [facility] [address] [place] [address], [place] Glucose [Mass/Vol] 130 mg/dL High 70-100 [facility] Comment on above: Performed By: #### 0 0121, 54807, 79231, 81262, 31125 #### [facility] [address] [place] [address], [place] Glucose [Mass/Vol] 130 mg/dL High 70-100 [facility] Comment on above: Performed By: #### 0 0121, 79688, 44252, 03882, 78750 #### [facility] [address] [place] [address], [place] Glucose [Mass/Vol] 129 mg/dL High 70-100 [facility] Comment on above: Performed By: #### 0 0121, 90091, 34144, 81303, 55871 #### [facility] [address] [place] [address], [place] Glucose [Mass/Vol] 108 mg/dL High 70-100 [facility] Comment on above: Performed By: #### 0 0121, 08510, 81629, 29765, 81718 #### [facility] [address] [place] [address], [place] Glucose [Mass/Vol] 101 mg/dL High 70-100 [facility] Comment on above: Performed By: #### 0 0121, 75902, 29234, 02877, 01709 #### [address] PORTABLE CHEST 1 VIEWon 03-01 PORTABLE CHEST 1 VIEW [facility] Department of Radiology [address] [place] [id number] ======== Patient Name: TRACIE CRAIN : 1965 Sex: M Age: Race: NA Pt. Location: [id number] Patient Status: I Ordered Date: 03/21/2019 5:00:00 [...] of field of view, in satisfactory position. [place]-Sher catheter is again seen with tip projecting [...] findings. Electronically signed by:Yenni Osuna. Transcribed by: [email or web address], User Resident: CYNTHIA FINLEY Electronically Signed by: YENNI OSUNA @ 03/22/2019 01:07 PM I personally read this/these film(s) with this resident Normal [facility] Comment on above: Order Comment: << On admission If not done in ED>> No: Do not add to previous draw ARTERIAL BLOOD GAS WITH ICAo n 03-20-2019 BASE EXCESS -4 mmol/L Low -2-3 [facility] Comment on above: Performed By: #### 0 0121, 33923, 79727, 80263, 05209 #### [facility] [address] [place] [address], [facility] DELIVERY SYSTEMS VENTILATOR Normal [facility] Comment on above: Performed By: #### 0 0121, 47306, 07576, 42090, 45298 #### [facility] [address] [place] [address], [place] FIO2 50 % Normal [facility] Comment on above: Performed By: #### 0 0121, 73470, 74978, 56315, 50443 #### [facility] [address] [place] [address], [facility] HCO3 (Bld) [Moles/Vol] 19 mmol/L Low 21-28 [facility] Comment on above: Performed By: #### 0 0121, 29636, 81460, 63694, 88411 #### [facility] [address] [place] [address], [facility] IONIZED CALCIUM 1.06 mmol/L Low 1.13-1.32 [facility] Comment on above: Performed By: #### 0 0121, 98706, 15877, 04535, 49405 #### [facility] [address] [place] [address], [facility] MIN VOLUME 14.2 Normal [facility] Comment on above: Performed By: #### 0 0121, 97912, 51178, 67804, 71562 #### [facility] [address] [place] [address], [facility] MODALITY AC-ASSIST CONTROL Normal [facility] Comment on above: Performed By: #### 0 0121, 59221, 87844, 51336, 32718 #### [facility] [address] [place] [address], [facility] Oxygen (Bld) [Partial pressure] 82 mm[Hg] Low 83-108 The [facility] Comment on above: Performed By: #### 0 0121, 84574, 12746, 49003, 79106 #### [facility] [address] [place] [address], [facility] Oxygen saturation in Blood 94.4 % Normal 94.0-97.0 [facility] Comment on above: Performed By: #### 0 0121, 15399, 54335, 56392, 28200 #### [facility] [address] [place] [address], [facility] PCO2 27 mmHg Low 35-45 [facility] Comment on above: Performed By: #### 0 0121, 00253, 92696, 94898, 28104 #### [facility] [address] [place] [address], [facility] PEEP 8.0 CMH20 Normal [facility] Comment on above: Performed By: #### 0 0121, 57580, 88355, 09220, 32785 #### [facility] [address] [place] [address], [place] pH (Bld) 7.45 [pH] Normal 7.35-7.45 [facility] Comment on above: Result Comment: KINJAL SE NOTE: Effective 12/02/18, reference ranges for Respiratory GEM analyzers running arterial blood have been updated to reflect the tick sewer's published reference ranges. Performed By: #### 0 0121, 06457, 12570, 28602, 01913 #### [facility] [address] [place] [address], [facility] TIDAL VOLUME (VT) CC 700 cc Normal [facility] Comment on above: Performed By: #### 0 0121, 73065, 99759, 94184, 78189 #### [facility] [address] [place] [address], [facility] BASE EXCESS -2 mmol/L Normal -2-3 [facility] Comment on above: Performed By: #### 0 0121, 59445, 02452, 57437, 01622 #### [facility] [address] [place] [address], [facility] DELIVERY SYSTEMS MV Normal [facility] Comment on above: Performed By: #### 0 0121, 82867, 86634, 58752, 42404 #### [facility] [address] [place] [address], [place] FIO2 100 % Normal [facility] Comment on above: Performed By: #### 0 0121, 95975, 13519, 79413, 22598 #### [facility] [address] [place] [address], [place] HCO3 (Bld) [Moles/Vol] 22 mmol/L Normal 21-28 [facility] Comment on above: Performed By: #### 0 0121, 15612, 78877, 61374, 18605 #### [facility] [address] [place] [address], [place] IONIZED CALCIUM 1.18 mmol/L Normal 1.13-1.32 [facility] Comment on above: Performed By: #### 0 0121, 86734, 48339, 34311, 41553 #### [facility] [address] [place] [address], [facility] MIN VOLUME 13.0 Normal [facility] Comment on above: Performed By: #### 0 0121, 95646, 36681, 04777, 28235 #### [facility] [address] [place] [address], [facility] MODALITY AC Normal [facility] Comment on above: Performed By: #### 0 0121, 56258, 43662, 42798, 15708 #### [facility] [address] [place] [address], [facility] Oxygen (Bld) [Partial pressure] 109 mm[Hg] Critically high 83-108 [facility] Comment on above: Performed By: #### 0 0121, 07921, 94958, 41650, 95127 #### [facility] [address] [place] [address], [facility] Oxygen saturation in Blood 95.6 % Normal 94.0-97.0 [facility] Comment on above: Performed By: #### 0 0121, 10162, 49161, 90917, 71881 #### [facility] [address] [place] [address], [place] PCO2 33 mmHg Low 35-45 [facility] Comment on above: Performed By: #### 0 0121, 28473, 76494, 03958, 95050 #### [facility] [address] [place] [address], [place] PEEP 10.0 CMH20 Normal [facility] Comment on above: Performed By: #### 0 0121, 13726, 03981, 85857, 71501 #### [facility] [address] [place] [address], [place] PF RATIO 109 mmHg Normal [facility] Comment on above: Performed By: #### 0 0121, 85780, 64413, 08453, 31150 #### [facility] [address] [place] [address], [place] pH (Bld) 7.43 [pH] Normal 7.35-7.45 [facility] Comment on above: Result Comment: KINJAL SE NOTE: Effective 12/02/18, reference ranges for Respiratory GEM analyzers running arterial blood have been updated to reflect the tick sewer's published reference ranges. Performed By: #### 0 0121, 51074, 71811, 89502, 60404 #### [facility] [address] [place] [address], [place] TIDAL VOLUME (VT) CC 700 cc Normal [facility] Comment on above: Performed By: #### 0 0121, 31236, 66296, 35579, 53298 #### [facility] [address] [place] [address], [place] BASE EXCESS -4 mmol/L Low -2-3 [facility] Comment on above: Performed By: #### 0 0121, 87365, 61323, 22866, 60084 #### [facility] [address] [place] [address], [place] DELIVERY SYSTEMS VENTILATOR Normal [facility] Comment on above: Performed By: #### 0 0121, 37010, 01770, 35089, 93243 #### [facility] [address] [place] [address], [place] FIO2 100 % Normal [facility] Comment on above: Performed By: #### 0 0121, 21222, 22983, 70101, 62289 #### [facility] [address] [place] [address], [facility] HCO3 (Bld) [Moles/Vol] 20 mmol/L Low 21-28 [facility] Comment on above: Performed By: #### 0 0121, 89867, 73035, 45003, 39419 #### [facility] [address] [place] [address], [place] IONIZED CALCIUM 1.23 mmol/L Normal 1.13-1.32 [facility] Comment on above: Performed By: #### 0 0121, 75989, 99856, 58433, 42731 #### [facility] [address] [place] [address], [facility] MIN VOLUME 15.1 Normal [facility] Comment on above: Performed By: #### 0 0121, 16182, 34888, 93980, 01239 #### [facility] [address] [place] [address], [place] MODALITY AC-ASSIST CONTROL Normal [facility] Comment on above: Performed By: #### 0 0121, 18425, 08506, 12604, 22703 #### [facility] [address] [place] [address], [place] Oxygen (Bld) [Partial pressure] 90 mm[Hg] Normal 83-108 [facility] Comment on above: Performed By: #### 0 0121, 93918, 77009, 40714, 77225 #### [facility] [address] [place] [address], [place] Oxygen saturation in Blood 95.1 % Normal 94.0-97.0 [facility] Comment on above: Performed By: #### 0 0121, 78473, 00184, 59309, 85365 #### [facility] [address] [place] [address], [facility] PCO2 32 mmHg Low 35-45 [facility] Comment on above: Performed By: #### 0 0121, 37655, 34574, 70074, 48307 #### [facility] [address] [place] [address], [facility] PEEP 10.0 CMH20 Normal [facility] Comment on above: Performed By: #### 0 0121, 01223, 31825, 64024, 13372 #### [facility] [address] [place] [address], [place] PF RATIO 900 mmHg Normal [facility] Comment on above: Performed By: #### 0 0121, 88201, 99249, 39266, 80988 #### [facility] [address] [place] [address], [facility] pH (Bld) 7.40 [pH] Normal 7.35-7.45 [facility] Comment on above: Result Comment: KINJAL REYNOSO NOTE: Effective 12/02/18, reference ranges for Respiratory GEM analyzers running arterial blood have been updated to reflect the tick sewer's published reference ranges. Performed By: #### 0 0121, 58663, 23130, 86374, 34156 #### [facility] [address] [place] [address], [facility] TIDAL VOLUME (VT) CC 700 cc Normal [facility] Comment on above: Performed By: #### 0 0121, 36381, 69546, 50912, 21112 #### [facility] [address] [place] [address], [facility] BASIC METABOLIC PANELon 06-2 Calcium [Mass/Vol] 8.1 mg/dL Low 8.6-10.3 [facility] Comment on above: Order Comment: << On admission If not done in ED>> No: Do not add to previous draw Performed By: #### 0 0121, 37383, 01809, 12449, 37750 #### [facility] [address] [place] [address], [facility] Chloride [Moles/Vol] 112 mmol/L High 98-107 [facility] Comment on above: Order Comment: << On admission If not done in ED>> No: Do not add to previous draw Performed By: #### 0 0121, 53980, 82100, 93474, 42667 #### [facility] [address] [place] [address], [facility] CO2 [Moles/Vol] 24 mmol/L Normal 21-31 The [facility] Comment on above: Order Comment: << On admission If not done in ED>> No: Do not add to previous draw Performed By: #### 0 0121, 62299, 10797, 43491, 78211 #### [facility] [address] [place] [address], [facility] Creatinine [Mass/Vol] 0.97 mg/dL Normal 0.70-1.30 [facility] Comment on above: Order Comment: << On admission If not done in ED>> No: Do not add to previous draw Performed By: #### 0 0121, 83423, 47145, 52151, 08469 #### [facility] [address] [place] [address], [facility] GFR/1.73 sq M predicted among blacks MDRD (S/P/Bld) [Vol rate/Area] mL/min/{1.73_m2} Normal >60 [facility] Comment on above: Order Comment: << On admission If not done in ED>> No: Do not add to previous draw Performed By: #### 0 0121, 15927, 95185, 86204, 23586 #### [facility] [address] [place] [address], [facility] GFR/1.73 sq M predicted among non-blacks MDRD (S/P/Bld) [Vol rate/Area] mL/min/{1.73_m2} Normal >60 [facility] Comment on above: Order Comment: << On admission If not done in ED>> No: Do not add to previous draw Performed By: #### 0 0121, 74592, 15134, 95083, 68091 #### [facility] [address] [place] [address], [place] Glucose [Mass/Vol] 134 mg/dL High 70-100 [facility] Comment on above: Order Comment: << On admission If not done in ED>> No: Do not add to previous draw Performed By: #### 0 0121, 57578, 78374, 62663, 20578 #### [facility] [address] [place] [address], [place] Potassium [Moles/Vol] 3.9 mmol/L Normal 3.5-5.1 [facility] Comment on above: Order Comment: << On admission If not done in ED>> No: Do not add to previous draw Performed By: #### 0 0121, 77635, 65030, 99809, 81678 #### [facility] [address] [place] [address], [place] Sodium [Moles/Vol] 142 mmol/L Normal 136-145 [facility] Comment on above: Order Comment: << On admission If not done in ED>> No: Do not add to previous draw Performed By: #### 0 0121, 30478, 36567, 29016, 02955 #### [facility] [address] [place] [address], [place] Urea nitrogen [Mass/Vol] 16 mg/dL Normal 7-25 [facility] Comment on above: Order Comment: << On admission If not done in ED>> No: Do not add to previous draw Performed By: #### 0 0121, 97128, 14508, 68709, 92782 #### [facility] [address] [place] [address], [place] Chloride [Moles/Vol] 113 mmol/L High 98-107 [facility] Comment on above: Order Comment: << On admission If not done in ED>> No: Do not add to previous draw Performed By: #### 0 0121, 40453, 44279, 07669, 33899 #### [facility] [address] [place] [address], [place] CO2 [Moles/Vol] 23 mmol/L Normal 21-31 [facility] Comment on above: Order Comment: << On admission If not done in ED>> No: Do not add to previous draw Performed By: #### 0 0121, 11389, 92694, 76085, 00548 #### [facility] [address] [place] [address], [place] Creatinine [Mass/Vol] 1.11 mg/dL Normal 0.70-1.30 [facility] Comment on above: Order Comment: << On admission If not done in ED>> No: Do not add to previous draw Performed By: #### 0 0121, 53586, 34737, 97372, 23664 #### [facility] [address] [place] [address], [place] Glucose [Mass/Vol] 157 mg/dL High 70-100 [facility] Comment on above: Order Comment: << On admission If not done in ED>> No: Do not add to previous draw Performed By: #### 0 0121, 82373, 05052, 95625, 43472 #### [facility] [address] [place] [address], [place] Potassium [Moles/Vol] 4.0 mmol/L Normal 3.5-5.1 [facility] Comment on above: Order Comment: << On admission If not done in ED>> No: Do not add to previous draw Performed By: #### 0 0121, 80433, 39420, 40800, 28376 #### [facility] [address] [place] [address], [place] Sodium [Moles/Vol] 143 mmol/L Normal 136-145 [facility] Comment on above: Order Comment: << On admission If not done in ED>> No: Do not add to previous draw Performed By: #### 0 0121, 83741, 29159, 31956, 26967 #### [facility] [address] [place] [address], [place] Urea nitrogen [Mass/Vol] 17 mg/dL Normal 7-25 [facility] Comment on above: Order Comment: << On admission If not done in ED>> No: Do not add to previous draw Performed By: #### 0 0121, 96553, 95454, 21465, 15036 #### [facility] [address] [place] [address], [place] Calcium [Mass/Vol] 8.7 mg/dL Normal 8.6-10.3 [facility] Comment on above: Order Comment: << On admission If not done in ED>> No: Do not add to previous draw Performed By: #### 0 0121, 23926, 86852, 53653, 40266 #### [facility] [address] [place] [address], [place] CO2 [Moles/Vol] 22 mmol/L Normal 21-31 The [facility] Comment on above: Order Comment: << On admission If not done in ED>> No: Do not add to previous draw Performed By: #### 0 0121, 04738, 95245, 48843, 83517 #### [facility] [address] [place] [address], [place] Creatinine [Mass/Vol] 1.00 mg/dL Normal 0.70-1.30 [facility] Comment on above: Order Comment: << On admission If not done in ED>> No: Do not add to previous draw Performed By: #### 0 0121, 09118, 95109, 48007, 74238 #### [facility] [address] [place] [address], [facility] Glucose [Mass/Vol] 126 mg/dL High 70-100 [facility] Comment on above: Order Comment: << On admission If not done in ED>> No: Do not add to previous draw Performed By: #### 0 0121, 78751, 89546, 21964, 42156 #### [facility] [address] [place] [address], [facility] Potassium [Moles/Vol] 4.1 mmol/L Normal 3.5-5.1 [facility] Comment on above: Order Comment: << On admission If not done in ED>> No: Do not add to previous draw Performed By: #### 0 0121, 75770, 25313, 29563, 36188 #### [facility] [address] CBC COMPLETE BLOOD COUNTon - Erythrocyte distribution width (RBC) [Ratio] 13.2 % Normal 11.5-15.0 [facility] Comment on above: Order Comment: << On admission If not done in ED>> No: Do not add to previous draw Performed By: #### 0 0121, 58511, 15869, 00983, 15284 #### [facility] [address] Hematocrit (Bld) [Volume fraction] 39.8 % Normal 39.0-50.0 [facility] Comment on above: Order Comment: << On admission If not done in ED>> No: Do not add to previous draw Performed By: #### 0 0121, 46657, 89671, 91579, 82504 #### [facility] [address] [place] [address], [facility] Hemoglobin (Bld) [Mass/Vol] 12.8 g/dL Low 13.0-17.0 [facility] Comment on above: Order Comment: << On admission If not done in ED>> No: Do not add to previous draw Performed By: #### 0 0121, 40702, 07386, 21477, 93388 #### [facility] [address] MCH (RBC) [Entitic mass] 28.8 pg Normal 27.0-33.0 [facility] Comment on above: Order Comment: << On admission If not done in ED>> No: Do not add to previous draw Performed By: #### 0 0121, 38347, 30675, 85047, 30172 #### [facility] [address] MCHC (RBC) [Mass/Vol] 32.2 g/dL Normal 32.0-35.0 [facility] Comment on above: Order Comment: << On admission If not done in ED>> No: Do not add to previous draw Performed By: #### 0 0121, 17037, 66445, 15252, 85619 #### [facility] [address] MCV (RBC) [Entitic vol] 89.4 fL Normal 82.0-98.0 [facility] Comment on above: Order Comment: << On admission If not done in ED>> No: Do not add to previous draw Performed By: #### 0 0121, 17524, 26127, 75540, 21587 #### [facility] [address] Nucleated RBC/100 WBC (Bld) [Ratio] 0 % Normal 0-0 [facility] Comment on above: Order Comment: << On admission If not done in ED>> No: Do not add to previous draw Performed By: #### 0 0121, 05041, 66230, 86782, 09425 #### [facility] [address] PLAT CNT 144 10*3/uL Low 150-400 The [facility] Comment on above: Order Comment: << On admission If not done in ED>> No: Do not add to previous draw Performed By: #### 0 0121, 28043, 19876, 45455, 93769 #### [facility] [address] [place] [address], [facility] RBC (Bld) [#/Vol] 4.45 10*6/uL Normal 4.20-5.70 [facility] Comment on above: Order Comment: << On admission If not done in ED>> No: Do not add to previous draw Performed By: #### 0 0121, 25685, 32788, 41101, 37726 #### [facility] [address] [place] [address], [facility] WBC (Bld) [#/Vol] 18.51 10*3/uL High 4.00-10.60 [facility] Comment on above: Order Comment: << On admission If not done in ED>> No: Do not add to previous draw Performed By: #### 0 0121, 20311, 10933, 41689, 53623 #### [facility] [address] [place] [address], [facility] Erythrocyte distribution width (RBC) [Ratio] 13.1 % Normal 11.5-15.0 [facility] Comment on above: Order Comment: << On admission If not done in ED>> No: Do not add to previous draw Performed By: #### 0 0121, 99632, 66367, 57200, 43000 #### [facility] [address] [place] [address], [place] Hematocrit (Bld) [Volume fraction] 43.9 % Normal 39.0-50.0 [facility] Comment on above: Order Comment: << On admission If not done in ED>> No: Do not add to previous draw Performed By: #### 0 0121, 89757, 44150, 78914, 43011 #### [facility] [address] [place] [address], [place] Hemoglobin (Bld) [Mass/Vol] 13.9 g/dL Normal 13.0-17.0 [facility] Comment on above: Order Comment: << On admission If not done in ED>> No: Do not add to previous draw Performed By: #### 0 0121, 65945, 18514, 45615, 73600 #### [facility] [address] MCH (RBC) [Entitic mass] 28.7 pg Normal 27.0-33.0 [facility] Comment on above: Order Comment: << On admission If not done in ED>> No: Do not add to previous draw Performed By: #### 0 0121, 91792, 31259, 51352, 05331 #### [facility] [address] MCHC (RBC) [Mass/Vol] 31.7 g/dL Low 32.0-35.0 [facility] Comment on above: Order Comment: << On admission If not done in ED>> No: Do not add to previous draw Performed By: #### 0 0121, 20070, 81878, 68332, 34422 #### [facility] [address] [facility] [address] MCV (RBC) [Entitic vol] 90.5 fL Normal 82.0-98.0 [facility] Comment on above: Order Comment: << On admission If not done in ED>> No: Do not add to previous draw Performed By: #### 0 0121, 47259, 98536, 51316, 52406 #### [facility] [address] [place] [address], [facility] PLAT CNT 185 10*3/uL Normal 150-400 The [facility] Comment on above: Order Comment: << On admission If not done in ED>> No: Do not add to previous draw Performed By: #### 0 0121, 70973, 07018, 45644, 49324 #### [facility] [address] [place] [address], [facility] RBC (Bld) [#/Vol] 4.85 10*6/uL Normal 4.20-5.70 [facility] Comment on above: Order Comment: << On admission If not done in ED>> No: Do not add to previous draw Performed By: #### 0 0121, 45463, 31880, 52042, 47276 #### [facility] [address] [place] [address], [facility] WBC (Bld) [#/Vol] 19.37 10*3/uL High 4.00-10.60 [facility] Comment on above: Order Comment: << On admission If not done in ED>> No: Do not add to previous draw Performed By: #### 0 0121, 09673, 68741, 06047, 79436 #### [facility] [address] [place] [address], [facility] Hematocrit (Bld) [Volume fraction] 42.3 % Normal 39.0-50.0 [facility] Comment on above: Order Comment: << On admission If not done in ED>> No: Do not add to previous draw Performed By: #### 0 0121, 24109, 29301, 20314, 68845 #### [facility] [address] [place] [address], [facility] Hemoglobin (Bld) [Mass/Vol] 14.0 g/dL Normal 13.0-17.0 [facility] Comment on above: Order Comment: << On admission If not done in ED>> No: Do not add to previous draw Performed By: #### 0 0121, 57998, 12418, 62329, 34956 #### [facility] [address] [place] [address], [facility] MCH (RBC) [Entitic mass] 29.2 pg Normal 27.0-33.0 [facility] Comment on above: Order Comment: << On admission If not done in ED>> No: Do not add to previous draw Performed By: #### 0 0121, 95072, 26418, 32057, 27750 #### [facility] [address] [place] [address], [facility] MCHC (RBC) [Mass/Vol] 33.1 g/dL Normal 32.0-35.0 [facility] Comment on above: Order Comment: << On admission If not done in ED>> No: Do not add to previous draw Performed By: #### 0 0121, 36392, 90900, 63768, 77552 #### [facility] [address] [place] [address], [facility] MCV (RBC) [Entitic vol] 88.3 fL Normal 82.0-98.0 [facility] Comment on above: Order Comment: << On admission If not done in ED>> No: Do not add to previous draw Performed By: #### 0 0121, 23061, 27638, 07393, 41153 #### [facility] [address] [place] [address], [facility] PLAT CNT 169 10*3/uL Normal 150-400 The [facility] Comment on above: Order Comment: << On admission If not done in ED>> No: Do not add to previous draw Performed By: #### 0 0121, 79153, 60247, 15799, 93443 #### [facility] [address] [place] [address], [facility] RBC (Bld) [#/Vol] 4.79 10*6/uL Normal 4.20-5.70 [facility] Comment on above: Order Comment: << On admission If not done in ED>> No: Do not add to previous draw Performed By: #### 0 0121, 25648, 44085, 12580, 35686 #### [facility] [address] [place] [address], [facility] WBC (Bld) [#/Vol] 19.78 10*3/uL High 4.00-10.60 [facility] Comment on above: Order Comment: << On admission If not done in ED>> No: Do not add to previous draw Performed By: #### 0 0121, 14700, 32489, 93354, 52196 #### [facility] [address] [place] [address], [facility] COOXIMETRYon 03-20-2019 COHB 2 % Normal [facility] Comment on above: Performed By: #### 0 0121, 63154, 73043, 24748, 77123 #### [facility] [address] [place] [address], [facility] METHB 0 % Normal [facility] Comment on above: Performed By: #### 0 0121, 14770, 14228, 96095, 80429 #### [facility] [address] [place] [address], [facility] Oxygen saturation in Blood 68.0 % Normal 65.0-75.0 [facility] Comment on above: Performed By: #### 0 0121, 78057, 84276, 71875, 68712 #### [facility] [address] [place] [address], [facility] THB 13.2 g/dL Normal [facility] Comment on above: Performed By: #### 0 0121, 86694, 44390, 49291, 97561 #### [facility] [address] [place] [address], [place] CPK-MB PROFILEon 03-20-2019 CK [Catalytic activity/Vol] 2914 U/L Critically high 30-223 [facility] Comment on above: Order Comment: << On admission If not done in ED>> No: Do not add to previous draw Performed By: #### 0 0121, 95570, 00308, 99021, 93711 #### [facility] [address] [place] [address], [place] CK.MB [Mass/Vol] 3.8 ng/mL Critically high 0.0-1.9 [facility] Comment on above: Order Comment: << On admission If not done in ED>> No: Do not add to previous draw Result Comment: M-CR ITICAL RESULT(S) REVIEWED, CALLED TO AND READ BACK BY DAKOTAH MONTANO RN AT 0550 Performed By: #### 0 0121, 77290, 46109, 91793, 97933 #### [facility] [address] CK.MB [Mass/Vol] 111.1 ng/mL High 0.0-5.0 [facility] Comment on above: Order Comment: << On admission If not done in ED>> No: Do not add to previous draw Result Comment: IF T OTAL CK <200 U/L AND: 1. CKMB IS 5-10 NG/ML----BORDERLINE 2. CKMB IS >10 NG/ML----INDICATIVE OF [place] OR IF TOTAL CK >200 U/L AND CKMB INDEX >1.9----INDICATIVE OF [place] Performed By: #### 0 0121, 51448, 84332, 16603, 97388 #### [facility] [address] LACTATE BLOODon 03-20-2019 Lactate [Moles/Vol] 1.9 mmol/L Normal 0.5-2.2 The [facility] Comment on above: Order Comment: << On admission If not done in ED>> No: Do not add to previous draw Performed By: #### 0 0121, 73038, 94351, 98673, 87747 #### [facility] [address] [place] [address], [facility] Lactate [Moles/Vol] 3.1 mmol/L Critically high 0.5-2.2 [facility] Comment on above: Order Comment: << On admission If not done in ED>> No: Do not add to previous draw Result Comment: M-RI EVIOUS CRITICAL RESULT Performed By: #### 0 0121, 23855, 15389, 73025, 59651 #### [facility] [address] [place] [address], [facility] Lactate [Moles/Vol] 2.7 mmol/L Critically high 0.5-2.2 [facility] Comment on above: Order Comment: << On admission If not done in ED>> No: Do not add to previous draw Result Comment: M-RI EVIOUS CRITICAL RESULT Performed By: #### 0 0121, 81919, 21990, 29334, 95990 #### [facility] [address] [place] [address], [facility] MAGNESIUM BLOODon 03-20-2019 Magnesium [Mass/Vol] 2.1 mg/dL Normal 1.9-2.7 [facility] Comment on above: Order Comment: << On admission If not done in ED>> No: Do not add to previous draw Performed By: #### 0 0121, 25645, 71616, 77496, 92468 #### [facility] [address] [place] [address], [facility] Magnesium [Mass/Vol] 2.3 mg/dL Normal 1.9-2.7 [facility] Comment on above: Order Comment: << On admission If not done in ED>> No: Do not add to previous draw Performed By: #### 0 0121, 56838, 19405, 10609, 90501 #### [facility] [address] [place] [address], [place] Magnesium [Mass/Vol] 2.4 mg/dL Normal 1.9-2.7 [facility] Comment on above: Order Comment: << On admission If not done in ED>> No: Do not add to previous draw Performed By: #### 0 0121, 82838, 90180, 55896, 44553 #### [facility] [address] [place] [address], [facility] Operative Reporton 9 Operative Report MR#: [id number] [facility] Pt. Name: Tracie Crain Room #: [id number] Discharge Date: Birthdate: 1965 OPERATIVE REPORT DATE [...] Black MD Date Trans: 03/20/2019 02:34 A/bessie [id number] cc: Titus Villegas M.D. [address], [facility] [address] [place] [facility] Operative Report MR#: [id number] [facility] Pt. Name: Tracie Crain Room #: [id number] Discharge Date: Birthdate: 1965 OPERATIVE REPORT DATE [...] and posteromedial papillary muscle. These were 4.0 [place] stitches and they were brought out in [...] Black MD Date Trans: 03/20/2019 02:21 A/bessie [id number] cc: Titus Villegas M.D. [address] [facility] [address] Normal [facility] POC GLUCOSE LABon 03-20-2019 Glucose [Mass/Vol] 117 mg/dL High 70-100 [facility] Comment on above: Performed By: #### 0 0121, 69300, 70098, 70136, 88583 #### [facility] [address] [place] [address], [place] Glucose [Mass/Vol] 114 mg/dL High 70-100 [facility] Comment on above: Performed By: #### 0 0121, 95412, 15123, 30997, 85272 #### [facility] [address] [place] [address], [place] Glucose [Mass/Vol] 117 mg/dL High 70-100 [facility] Comment on above: Performed By: #### 0 0121, 27537, 81706, 65556, 20446 #### [facility] [address] [place] [address], [place] Glucose [Mass/Vol] 99 mg/dL Normal 70-100 [facility] Comment on above: Performed By: #### 0 0121, 65413, 43396, 66483, 99819 #### [facility] [address] [place] [address], [place] Glucose [Mass/Vol] 125 mg/dL High 70-100 [facility] Comment on above: Performed By: #### 0 0121, 95783, 90513, 57136, 91636 #### [facility] [address] [place] [address], [place] Glucose [Mass/Vol] 102 mg/dL High 70-100 [facility] Comment on above: Performed By: #### 0 0121, 90728, 10910, 26311, 49778 #### [facility] [address] [place] [address], [place] Glucose [Mass/Vol] 97 mg/dL Normal 70-100 [facility] Comment on above: Performed By: #### 0 0121, 15327, 20585, 03553, 43503 #### [facility] [address] [place] [address], [place] Glucose [Mass/Vol] 102 mg/dL High 70-100 [facility] Comment on above: Performed By: #### 0 0121, 49965, 80578, 13800, 30447 #### [facility] [address] [place] [address], [place] Glucose [Mass/Vol] 124 mg/dL High 70-100 [facility] Comment on above: Performed By: #### 0 0121, 43496, 95988, 77215, 63482 #### [facility] [address] [place] [address], [place] Glucose [Mass/Vol] 112 mg/dL High 70-100 [facility] Comment on above: Order Comment: << On admission If not done in ED>> No: Do not add to previous draw Performed By: #### 0 0121, 22120, 26302, 52858, 06199 #### [facility] [address] [place] [address], [place] Glucose [Mass/Vol] 129 mg/dL High 70-100 [facility] Comment on above: Performed By: #### 0 0121, 26596, 79616, 96174, 31498 #### [facility] [address] [place] [address], [place] Glucose [Mass/Vol] 122 mg/dL High 70-100 The [facility] Comment on above: Performed By: #### 0 0121, 58629, 42651, 97560, 64083 #### [facility] [address] [place] [address], [place] Glucose [Mass/Vol] 133 mg/dL High 70-100 [facility] Comment on above: Performed By: #### 0 0121, 31984, 55128, 58793, 84309 #### [facility] [address] [place] [address], [place] Glucose [Mass/Vol] 130 mg/dL High 70-100 The [facility] Comment on above: Performed By: #### 5 7307 #### [facility] [address] [place] [address], [place] Glucose [Mass/Vol] 142 mg/dL High 70-100 [facility] Comment on above: Performed By: #### 5 7307 #### [address] [address] PORTABLE CHEST 1 VIEWon 03-01 PORTABLE CHEST 1 VIEW [facility] Department of Radiology [address] [place] [phone] ======== Patient Name: TRACIE CRAIN : 1965 Sex: M Age: Race: NA Pt. Location: [id number] Patient Status: I Ordered Date: 03/20/2019 8:05:00 [...] tube is 7 cm from the loki. Pomona-Sher catheter with tip projecting over the pulmonary [...] findings. Electronically signed by:Yenni Osuna. Transcribed by: [email or web address], User Resident: ANAI ALVARADO Electronically Signed by: YENNI OSUNA @ 03/22/2019 11:07 AM I personally read this/these film(s) with this resident Normal [facility] Comment on above: Order Comment: << On admission If not done in ED>> No: Do not add to previous draw PORTABLE CHEST 1 VIEW [facility] Department of Radiology [address] [place] [phone] ======== Patient Name: TRACIE CRAIN : 1965 Sex: M Age: Race: NA Pt. Location: [id number] Patient Status: I Ordered Date: 03/20/2019 5:00:00 [...] tube is 7 cm from the loki. [place]-Sher catheter with tip projecting over the pulmonary [...] findings. Electronically signed by:Divya Collins. Transcribed by: [email or web address], User Resident: ANAI ALVARADO Electronically Signed by: DIVYA COLLINS @ 03/20/2019 11:01 AM I personally read this/these film(s) with this resident Normal [facility] Comment on above: Order Comment: << On admission If not done in ED>> No: Do not add to previous draw PROTHROMBIN TIMEon 9 INR Coag (PPP) [Relative time] 1.37 {INR} High 0.91-1.16 [facility] Comment on above: Order Comment: << [...] CHEST 1995;108:231S-246S. Performed By: #### 0 0121, 54312, 69550, 19571, 04323 #### [facility] [address] [place] [address], [facility] PT Coag (PPP) [Time] 16.9 s High 12.3-14.8 [facility] Comment on above: Order Comment: << On admission If not done in ED>> No: Do not add to previous draw Result Comment: ALL RESULTS MUST BE INTERPRETED WITH RESPECT TO BLOOD DRAWING ARTIFACT OR DILUTION ERROR OF ANTICOAGULANT AT THE TIME OF SAMPLING. Performed By: #### 0 0121, 34814, 76158, 54572, 33251 #### [facility] [address] [place] [address], [facility] ACTIVATED CLOTTING TIMEon ACTIVATED CLOTTING TIME 115 sec Normal 82-152 [facility] Comment on above: Performed By: #### 8 0923, 18723 #### [facility] [address] [place] [address], [facility] ACTIVATED CLOTTING TIME 508 sec High 82-152 [facility] Comment on above: Performed By: #### 8 4433, 57337 #### [facility] [address] [place] [address], [place] ACTIVATED CLOTTING TIME 508 sec High 82-152 [facility] Comment on above: Performed By: #### 8 9773, 18877 #### [facility] [address] [place] [address], [place] ACTIVATED CLOTTING TIME 610 sec High 82-152 [facility] Comment on above: Performed By: #### 8 5123, 43401 #### [facility] [address] [place] [address], [place] ACTIVATED CLOTTING TIME 621 sec High 82-152 [facility] Comment on above: Performed By: #### 8 5123, 35337 #### [facility] [address] [place] [address], [place] ACTIVATED CLOTTING TIME 660 sec High 82-152 [facility] Comment on above: Performed By: #### 8 5123, 51064 #### [facility] [address] [place] [address], [place] ACTIVATED CLOTTING TIME 508 sec High 82-152 [facility] Comment on above: Performed By: #### 8 5123, 15874 #### [facility] [address] [place] [address], [place] ACTIVATED CLOTTING TIME 514 sec High 82-152 [facility] Comment on above: Performed By: #### 0 0121, 13978, 68740, 19201, 83520 #### [facility] [address] [place] [address], [place] ACTIVATED CLOTTING TIME 514 sec High 82-152 [facility] Comment on above: Performed By: #### 0 0121, 31770, 41495, 90467, 59820 #### [facility] [address] [place] [address], [place] ACTIVATED CLOTTING TIME 502 sec High 82-152 [facility] Comment on above: Performed By: #### 0 0121, 08531, 01068, 14395, 91499 #### [facility] [address] [place] [address], [place] ACTIVATED CLOTTING TIME 473 sec High 82-152 [facility] Comment on above: Performed By: #### 0 0121, 46016, 44553, 18478, 97582 #### [facility] [address] [place] [address], [facility] ACTIVATED CLOTTING TIME 508 sec High 82-152 [facility] Comment on above: Performed By: #### 0 0121, 20415, 63070, 42268, 07160 #### [facility] [address] [place] [address], [facility] ACTIVATED CLOTTING TIME 115 sec Normal 82-152 [facility] Comment on above: Performed By: #### 0 0121, 96209, 64552, 93378, 97228 #### [facility] [address] [place] [address], [facility] APTTon 03-19-2019 aPTT Coag (Bld) [Time] 28.6 s Normal 25.0-35.0 [facility] Comment on above: Result Comment: ALL [...] THIS PURPOSE. Performed By: #### 8 5123, 14222 #### [facility] [address] [place] [address], [facility] aPTT Coag (Bld) [Time] 33.6 s Normal 25.0-35.0 [facility] Comment on above: Order Comment: If [...] THIS PURPOSE. Performed By: #### 0 0121, 05558, 59623, 05181, 45296 #### [facility] [address] [place] [address], [facility] ARTERIAL BLOOD GAS W/COOXon 03-19-2019 BASE EXCESS -8 mmol/L Low -2-3 [facility] Comment on above: Performed By: #### 8 4511, 56485 ####[facility] [place] [address], [facility] COHB 2.6 % High 0.0-1.5 [facility] Comment on above: Performed By: #### 8 4511, 67667 ####[facility] [place] [address], [facility] DELIVERY SYSTEMS VENT Normal [facility] Comment on above: Performed By: #### 8 451, 78386 ####[facility] [place] [address], [facility] FIO2 100 % Normal [facility] Comment on above: Performed By: #### 8 451, 83626 ####[facility] [place] [address], [facility] HCO3 (Bld) [Moles/Vol] 19 mmol/L Low 21-28 [facility] Comment on above: Performed By: #### 8 451, 50423 ####[facility] [place] [address], [facility] METHB 0.8 % Normal 0.0-1.5 [facility] Comment on above: Performed By: #### 8 1461, 99298 ####[facility] [facility] [place] [address], [facility] MIN VOLUME 11.6 Normal [facility] Comment on above: Performed By: #### 8 4511, 61389 ####[facility] [place] [address], [facility] MODALITY AC Normal [facility] Comment on above: Performed By: #### 8 4511, 80302 ####[facility] [place] [address], [facility] Oxygen (Bld) [Partial pressure] 61 mm[Hg] Low 83-108 The [facility] Comment on above: Performed By: #### 8 4511, 97381 ####[facility] [place] [address], [facility] Oxygen saturation in Blood 88.9 % Low 94.0-97.0 [facility] Comment on above: Performed By: #### 8 4511, 47233 ####[facility] [place] [address], [facility] PCO2 43 mmHg Normal 35-45 [facility] Comment on above: Performed By: #### 8 4511, 10246 ####[facility] [place] [address], [facility] PEEP 10.0 CMH20 Normal [facility] Comment on above: Performed By: #### 8 4511, 45302 ####[facility] [place] [address], [facility] pH (Bld) 7.26 [pH] Low 7.35-7.45 [facility] Comment on above: Result Comment: PLEA SE NOTE: Effective 12/02/18, reference ranges for Respiratory GEM analyzers running arterial blood have been updated to reflect the tick sewer's published reference ranges. Performed By: #### 8 4511, 52410 ####[facility] [place] [address], [place] THB 14.2 g/dL Normal 12.0-16.3 [facility] Comment on above: Performed By: #### 8 4511, 12971 ####[facility] [place] [address], [place] TIDAL VOLUME (VT) CC 700 cc Normal [facility] Comment on above: Performed By: #### 8 1821, 17797 ####[facility] [place] [address], [facility] ARTERIAL BLOOD GAS WITH ICAo n 03-19-2019 BASE EXCESS -4 mmol/L Low -2-3 The [facility] Comment on above: Performed By: #### 5 7307 #### [facility] [address] [place] [address], [facility] DELIVERY SYSTEMS MV Normal [facility] Comment on above: Performed By: #### 5 7307 #### [facility] [address] [place] [address], [facility] FIO2 100 % Normal [facility] Comment on above: Performed By: #### 5 7307 #### [facility] [address] [place] [address], [facility] HCO3 (Bld) [Moles/Vol] 20 mmol/L Low 21-28 [facility] Comment on above: Performed By: #### 5 7307 #### [facility] [address] [place] [address], [facility] IONIZED CALCIUM 1.21 mmol/L Normal 1.13-1.32 [facility] Comment on above: Performed By: #### 5 7307 #### [facility] [address] [place] [address], [facility] MIN VOLUME 13.6 Normal [facility] Comment on above: Performed By: #### 5 7307 #### [facility] [address] [place] [address], [facility] MODALITY AC Normal [facility] Comment on above: Performed By: #### 5 7307 #### [facility] [address] [place] [address], [facility] Oxygen (Bld) [Partial pressure] 74 mm[Hg] Low 83-108 The [facility] Comment on above: Performed By: #### 5 7307 #### [facility] [address] [place] [address], [place] Oxygen saturation in Blood 93.5 % Low 94.0-97.0 [facility] Comment on above: Performed By: #### 5 7307 #### [facility] [address] [place] [address], [place] PCO2 33 mmHg Low 35-45 [facility] Comment on above: Performed By: #### 5 7307 #### [facility] [address] [place] [address], [place] PEEP 10.0 CMH20 Normal [facility] Comment on above: Performed By: #### 5 7307 #### [facility] [address] [place] [address], [place] PF RATIO 74 mmHg Normal [facility] Comment on above: Performed By: #### 5 7307 #### [facility] [address] [place] [address], [place] pH (Bld) 7.39 [pH] Normal 7.35-7.45 [facility] Comment on above: Result Comment: KINJAL REYNOSO NOTE: Effective 12/02/18, reference ranges for Respiratory GEM analyzers running arterial blood have been updated to reflect the tick sewer's published reference ranges. Performed By: #### 5 7307 #### [facility] [address] [place] [address], [place] TIDAL VOLUME (VT) CC 700 cc Normal [facility] Comment on above: Performed By: #### 5 7307 #### [facility] [address] [place] [address], [place] BASE EXCESS -7 mmol/L Low -2-3 The [facility] Comment on above: Order Comment: R/O P ulmonary Edema Performed By: #### 8 2051, 07658 ####[facility] DELIVERY SYSTEMS MV Normal [facility] Comment on above: Order Comment: R/O P ulmonary Edema Performed By: #### 8 420, 64176 ####[facility] FIO2 100 % Normal [facility] Comment on above: Order Comment: R/O P ulmonary Edema Performed By: #### 8 955, 42670 ####[facility] HCO3 (Bld) [Moles/Vol] 21 mmol/L Normal 21-28 [facility] Comment on above: Order Comment: R/O P ulmonary Edema Performed By: #### 8 688, 80794 ####[facility] IONIZED CALCIUM 1.36 mmol/L High 1.13-1.32 [facility] Comment on above: Order Comment: R/O P ulmonary Edema Performed By: #### 8 657, 71538 ####[facility] MIN VOLUME 13.0 Normal [facility] Comment on above: Order Comment: R/O P ulmonary Edema Performed By: #### 8 495, 09861 ####[facility] MODALITY SIMV Normal [facility] Comment on above: Order Comment: R/O P ulmonary Edema Performed By: #### 8 769, 27264 ####[facility] Oxygen (Bld) [Partial pressure] 63 mm[Hg] Low 83-108 The [facility] Comment on above: Order Comment: R/O P ulmonary Edema Performed By: #### 8 5471, 61312 ####[facility] [place] [address], [facility] Oxygen saturation in Blood 89.3 % Low 94.0-97.0 [facility] Comment on above: Order Comment: R/O P ulmonary Edema Performed By: #### 8 4511, 78924 ####[facility] [place] [address], [facility] PCO2 46 mmHg High 35-45 [facility] Comment on above: Order Comment: R/O P ulmonary Edema Performed By: #### 8 4511, 38142 ####[facility] [place] [address], [facility] PEEP 8.0 CMH20 Normal [facility] Comment on above: Order Comment: R/O P ulmonary Edema Performed By: #### 8 4511, 54205 ####[facility] [place] [address], [facility] PF RATIO 63 mmHg Normal [facility] Comment on above: Order Comment: R/O P ulmonary Edema Performed By: #### 8 4511, 84397 ####[facility] [place] [address], [facility] pH (Bld) 7.26 [pH] Low 7.35-7.45 [facility] Comment on above: Order Comment: R/O P ulmonary Edema Result Comment: KINJAL REYNOSO NOTE: Effective 12/02/18, reference ranges for Respiratory GEM analyzers running arterial blood have been updated to reflect the tick sewer's published reference ranges. Performed By: #### 8 8761, 05650 ####[facility] [place] [address], [facility] PRESSURE SUPPORT 5 Normal [facility] Comment on above: Order Comment: R/O P ulmonary Edema Performed By: #### 8 0771, 22666 ####[facility] [place] [address], [facility] TIDAL VOLUME (VT) CC 600 cc Normal [facility] Comment on above: Order Comment: R/O P ulmonary Edema Performed By: #### 8 4511, 54880 ####[facility] [place] [address], [facility] BASIC METABOLIC PANELon 06-2 0-2018 Calcium [Mass/Vol] 8.6 mg/dL Normal 8.6-10.3 [facility] Comment on above: Order Comment: No: D o not add to previous draw Performed By: #### 5 7307 #### [facility] [address] [place] [address], [facility] Chloride [Moles/Vol] 113 mmol/L High 98-107 [facility] Comment on above: Order Comment: No: D o not add to previous draw Performed By: #### 5 7307 #### [facility] [address] [place] [id number], [facility] CO2 [Moles/Vol] 21 mmol/L Normal 21-31 The [facility] Comment on above: Order Comment: No: D o not add to previous draw Performed By: #### 5 7307 #### [facility] [address] [place] [address], [place] Creatinine [Mass/Vol] 1.14 mg/dL Normal 0.70-1.30 [facility] Comment on above: Order Comment: No: D o not add to previous draw Performed By: #### 5 7307 #### [facility] [address] [place] [address], [place] GFR/1.73 sq M predicted among blacks MDRD (S/P/Bld) [Vol rate/Area] mL/min/{1.73_m2} Normal >60 [facility] Comment on above: Order Comment: No: D o not add to previous draw Performed By: #### 5 7307 #### [facility] [address] [place] [address], [place] GFR/1.73 sq M predicted among non-blacks MDRD (S/P/Bld) [Vol rate/Area] mL/min/{1.73_m2} Normal >60 [facility] Comment on above: Order Comment: No: D o not add to previous draw Performed By: #### 5 7307 #### [facility] [address] [place] [address], [place] Glucose [Mass/Vol] 164 mg/dL High 70-100 [facility] Comment on above: Order Comment: No: D o not add to previous draw Performed By: #### 5 7307 #### [facility] [address] [place] [address], [place] Potassium [Moles/Vol] 4.3 mmol/L Normal 3.5-5.1 [facility] Comment on above: Order Comment: No: D o not add to previous draw Performed By: #### 5 7307 #### [facility] [address] [place] [address], [place] Sodium [Moles/Vol] 142 mmol/L Normal 136-145 [facility] Comment on above: Order Comment: No: D o not add to previous draw Performed By: #### 5 7307 #### [facility] [address] [place] [address], [place] Urea nitrogen [Mass/Vol] 19 mg/dL Normal 7-25 [facility] Comment on above: Order Comment: No: D o not add to previous draw Performed By: #### 5 7307 #### [facility] [address] [place] [address], [place] Calcium [Mass/Vol] 9.8 mg/dL Normal 8.6-10.3 [facility] Comment on above: Order Comment: If no t done in ED No: Do not add to previous draw Performed By: #### 8 5123, 90839 #### [facility] [address] [place] [address], [place] Chloride [Moles/Vol] 112 mmol/L High 98-107 [facility] Comment on above: Order Comment: If no t done in ED No: Do not add to previous draw Performed By: #### 8 5123, 07468 #### [facility] [address] [place] [address], [place] CO2 [Moles/Vol] 21 mmol/L Normal 21-31 The [facility] Comment on above: Order Comment: If no t done in ED No: Do not add to previous draw Performed By: #### 8 5123, 08641 #### [facility] [address] [place] [address], [place] Creatinine [Mass/Vol] 1.07 mg/dL Normal 0.70-1.30 [facility] Comment on above: Order Comment: If no t done in ED No: Do not add to previous draw Performed By: #### 8 5123, 90216 #### [facility] [address] [place] [address], [place] GFR/1.73 sq M predicted among blacks MDRD (S/P/Bld) [Vol rate/Area] mL/min/{1.73_m2} Normal >60 [facility] Comment on above: Order Comment: If no t done in ED No: Do not add to previous draw Performed By: #### 8 5123, 71465 #### [facility] [address] [place] [address], [place] GFR/1.73 sq M predicted among non-blacks MDRD (S/P/Bld) [Vol rate/Area] mL/min/{1.73_m2} Normal >60 [facility] Comment on above: Order Comment: If no t done in ED No: Do not add to previous draw Performed By: #### 8 5123, 45514 #### [facility] [address] [place] [address], [place] Glucose [Mass/Vol] 147 mg/dL High 70-100 [facility] Comment on above: Order Comment: If no t done in ED No: Do not add to previous draw Performed By: #### 8 5123, 77426 #### [facility] [address] [place] [address], [place] Potassium [Moles/Vol] 3.9 mmol/L Normal 3.5-5.1 [facility] Comment on above: Order Comment: If no t done in ED No: Do not add to previous draw Performed By: #### 8 5123, 76696 #### [facility] [address] [place] [address], [place] Sodium [Moles/Vol] 142 mmol/L Normal 136-145 [facility] Comment on above: Order Comment: If no t done in ED No: Do not add to previous draw Performed By: #### 8 5123, 01427 #### [facility] [address] [place] [address], [place] Urea nitrogen [Mass/Vol] 19 mg/dL Normal 7-25 [facility] Comment on above: Order Comment: If no t done in ED No: Do not add to previous draw Performed By: #### 8 5123, 64394 #### [facility] [address] [place] [address], [place] Calcium [Mass/Vol] 9.5 mg/dL Normal 8.6-10.3 [facility] Comment on above: Order Comment: If no t done in ED No: Do not add to previous draw Performed By: #### 0 0121, 29454, 52868, 62247, 76939 #### [facility] [address] [place] [address], [place] Chloride [Moles/Vol] 105 mmol/L Normal 98-107 [facility] Comment on above: Order Comment: If no t done in ED No: Do not add to previous draw Performed By: #### 0 0121, 38030, 14992, 74487, 37494 #### [facility] [address] [place] [address], [place] CO2 [Moles/Vol] 24 mmol/L Normal 21-31 [facility] Comment on above: Order Comment: If no t done in ED No: Do not add to previous draw Performed By: #### 0 0121, 35235, 66681, 71047, 39322 #### [facility] [address] [place] [address], [place] Creatinine [Mass/Vol] 1.11 mg/dL Normal 0.70-1.30 [facility] Comment on above: Order Comment: If no t done in ED No: Do not add to previous draw Performed By: #### 0 0121, 05365, 26723, 66739, 97119 #### [facility] [address] [place] [address], [place] GFR/1.73 sq M predicted among blacks MDRD (S/P/Bld) [Vol rate/Area] mL/min/{1.73_m2} Normal >60 [facility] Comment on above: Order Comment: If no t done in ED No: Do not add to previous draw Performed By: #### 0 0121, 86907, 53416, 12964, 03095 #### [facility] [address] [place] [address], [place] GFR/1.73 sq M predicted among non-blacks MDRD (S/P/Bld) [Vol rate/Area] mL/min/{1.73_m2} Normal >60 [facility] Comment on above: Order Comment: If no t done in ED No: Do not add to previous draw Performed By: #### 0 0121, 86850, 48629, 33786, 20014 #### [facility] [address] [place] [address], [place] Glucose [Mass/Vol] 89 mg/dL Normal 70-100 [facility] Comment on above: Order Comment: If no t done in ED No: Do not add to previous draw Performed By: #### 0 0121, 96875, 83898, 87908, 64014 #### [facility] [address] [place] [address], [facility] Potassium [Moles/Vol] 4.2 mmol/L Normal 3.5-5.1 [facility] Comment on above: Order Comment: If no t done in ED No: Do not add to previous draw Performed By: #### 0 0121, 88241, 46768, 25426, 50331 #### [facility] [address] [place] [address], [facility] Sodium [Moles/Vol] 135 mmol/L Low 136-145 [facility] Comment on above: Order Comment: If no t done in ED No: Do not add to previous draw Performed By: #### 0 0121, 21244, 59344, 41791, 55962 #### [facility] [address] [place] [address], [facility] Urea nitrogen [Mass/Vol] 17 mg/dL Normal 7-25 [facility] Comment on above: Order Comment: If no t done in ED No: Do not add to previous draw Performed By: #### 0 0121, 96885, 56307, 32412, 26366 #### [facility] [address] [place] [address], [facility] CBC COMPLETE BLOOD COUNTon 0 03-19-2019 Erythrocyte distribution width (RBC) [Ratio] 13.0 % Normal 11.5-15.0 [facility] Comment on above: Order Comment: No: D o not add to previous draw Performed By: #### 5 7307 #### [facility] [address] [place] [address], [place] Hematocrit (Bld) [Volume fraction] 42.7 % Normal 39.0-50.0 [facility] Comment on above: Order Comment: No: D o not add to previous draw Performed By: #### 5 7307 #### [facility] [address] [place] [address], [facility] Hemoglobin (Bld) [Mass/Vol] 14.3 g/dL Normal 13.0-17.0 [facility] Comment on above: Order Comment: No: D o not add to previous draw Performed By: #### 5 7307 #### [facility] [address] [place] [id number], [facility] MCH (RBC) [Entitic mass] 29.4 pg Normal 27.0-33.0 [facility] Comment on above: Order Comment: No: D o not add to previous draw Performed By: #### 5 7307 #### [facility] [address] [place] [id number], [facility] MCHC (RBC) [Mass/Vol] 33.5 g/dL Normal 32.0-35.0 [facility] Comment on above: Order Comment: No: D o not add to previous draw Performed By: #### 5 7307 #### [facility] [address] [facility] [place] [id number], [facility] MCV (RBC) [Entitic vol] 87.9 fL Normal 82.0-98.0 [facility] Comment on above: Order Comment: No: D o not add to previous draw Performed By: #### 5 7307 #### [facility] [address] [facility] [address], [facility] Nucleated RBC/100 WBC (Bld) [Ratio] 0 % Normal 0-0 [facility] Comment on above: Order Comment: No: D o not add to previous draw Performed By: #### 5 7307 #### [facility] [address] [place] [id number], [facility] PLAT CNT 179 10*3/uL Normal 150-400 The [facility] Comment on above: Order Comment: No: D o not add to previous draw Performed By: #### 5 7307 #### [facility] [address] [place] [address], [facility] RBC (Bld) [#/Vol] 4.86 10*6/uL Normal 4.20-5.70 [facility] Comment on above: Order Comment: No: D o not add to previous draw Performed By: #### 5 7307 #### [facility] [address] [place] [id number], [facility] WBC (Bld) [#/Vol] 26.36 10*3/uL High 4.00-10.60 [facility] Comment on above: Order Comment: No: D o not add to previous draw Performed By: #### 5 7307 #### [facility] [address] [place] [address], [facility] Erythrocyte distribution width (RBC) [Ratio] 13.0 % Normal 11.5-15.0 [facility] Comment on above: Order Comment: R/O P ulmonary Edema Performed By: #### 5 0608 ####[facility] Hematocrit (Bld) [Volume fraction] 47.1 % Normal 39.0-50.0 [facility] Comment on above: Order Comment: R/O P ulmonary Edema Performed By: #### 5 0608 ####[facility] Hemoglobin (Bld) [Mass/Vol] 15.0 g/dL Normal 13.0-17.0 [facility] Comment on above: Order Comment: R/O P ulmonary Edema Performed By: #### 5 0608 ####[facility] MCH (RBC) [Entitic mass] 29.4 pg Normal 27.0-33.0 [facility] Comment on above: Order Comment: R/O P ulmonary Edema Performed By: #### 5 0608 ####[facility] MCHC (RBC) [Mass/Vol] 31.8 g/dL Low 32.0-35.0 [facility] Comment on above: Order Comment: R/O P ulmonary Edema Performed By: #### 5 0608 ####[facility] MCV (RBC) [Entitic vol] 92.4 fL Normal 82.0-98.0 [facility] Comment on above: Order Comment: R/O P ulmonary Edema Performed By: #### 5 0608 ####[facility] Nucleated RBC/100 WBC (Bld) [Ratio] 0 % Normal 0-0 [facility] Comment on above: Order Comment: R/O P ulmonary Edema Performed By: #### 5 0608 ####[facility] PLAT CNT 188 10*3/uL Normal 150-400 The [facility] Comment on above: Order Comment: R/O P ulmonary Edema Performed By: #### 5 0608 ####[facility] RBC (Bld) [#/Vol] 5.10 10*6/uL Normal 4.20-5.70 [facility] Comment on above: Order Comment: R/O P ulmonary Edema Performed By: #### 5 0608 ####[facility] WBC (Bld) [#/Vol] 31.20 10*3/uL High 4.00-10.60 [facility] Comment on above: Order Comment: R/O P ulmonary Edema Performed By: #### 5 0608 ####[facility] [place] [address], [facility] Erythrocyte distribution width (RBC) [Ratio] 13.0 % Normal 11.5-15.0 [facility] Comment on above: Order Comment: If no t done in ED No: Do not add to previous draw Performed By: #### 8 5123, 07061 #### [facility] [address] [place] [address], [place] Hematocrit (Bld) [Volume fraction] 44.2 % Normal 39.0-50.0 [facility] Comment on above: Order Comment: If no t done in ED No: Do not add to previous draw Performed By: #### 8 5123, 14085 #### [facility] [address] [place] [address], [place] Hemoglobin (Bld) [Mass/Vol] 14.4 g/dL Normal 13.0-17.0 [facility] Comment on above: Order Comment: If no t done in ED No: Do not add to previous draw Performed By: #### 8 5123, 75931 #### [facility] [address] [place] [address], [place] MCH (RBC) [Entitic mass] 28.8 pg Normal 27.0-33.0 [facility] Comment on above: Order Comment: If no t done in ED No: Do not add to previous draw Performed By: #### 8 5123, 69817 #### [facility] [address] [place] [address], [place] MCHC (RBC) [Mass/Vol] 32.6 g/dL Normal 32.0-35.0 [facility] Comment on above: Order Comment: If no t done in ED No: Do not add to previous draw Performed By: #### 8 5123, 59983 #### [facility] [address] [place] [address], [place] MCV (RBC) [Entitic vol] 88.4 fL Normal 82.0-98.0 [facility] Comment on above: Order Comment: If no t done in ED No: Do not add to previous draw Performed By: #### 8 5123, 80675 #### [facility] [address] [place] [id number], [facility] Nucleated RBC/100 WBC (Bld) [Ratio] 0 % Normal 0-0 [facility] Comment on above: Order Comment: If no t done in ED No: Do not add to previous draw Performed By: #### 8 5123, 76204 #### [facility] [address] [place] [id number], [facility] PLAT CNT 166 10*3/uL Normal 150-400 The [facility] Comment on above: Order Comment: If no t done in ED No: Do not add to previous draw Performed By: #### 8 5123, 26237 #### [facility] [address] [place] [address], [place] RBC (Bld) [#/Vol] 5.00 10*6/uL Normal 4.20-5.70 [facility] Comment on above: Order Comment: If no t done in ED No: Do not add to previous draw Performed By: #### 8 5123, 27158 #### [facility] [address] [place] [id number], [place] WBC (Bld) [#/Vol] 33.13 10*3/uL High 4.00-10.60 [facility] Comment on above: Order Comment: If no t done in ED No: Do not add to previous draw Performed By: #### 8 5123, 34806 #### [facility] [address] [place] [address], [place] Erythrocyte distribution width (RBC) [Ratio] 13.0 % Normal 11.5-15.0 [facility] Comment on above: Order Comment: If no t done in ED No: Do not add to previous draw Performed By: #### 0 0121, 79511, 93047, 22405, 87416 #### [facility] [address] [place] [address], [facility] Hematocrit (Bld) [Volume fraction] 55.7 % High 39.0-50.0 [facility] Comment on above: Order Comment: If no t done in ED No: Do not add to previous draw Performed By: #### 0 0121, 37200, 05586, 54210, 73344 #### [facility] [address] Hemoglobin (Bld) [Mass/Vol] 18.2 g/dL High 13.0-17.0 [facility] Comment on above: Order Comment: If no t done in ED No: Do not add to previous draw Performed By: #### 0 0121, 00419, 02868, 56483, 44218 #### [facility] [address] MCH (RBC) [Entitic mass] 28.6 pg Normal 27.0-33.0 [facility] Comment on above: Order Comment: If no t done in ED No: Do not add to previous draw Performed By: #### 0 0121, 63923, 09346, 70025, 60021 #### [facility] [address] MCHC (RBC) [Mass/Vol] 32.7 g/dL Normal 32.0-35.0 [facility] Comment on above: Order Comment: If no t done in ED No: Do not add to previous draw Performed By: #### 0 0121, 08036, 25869, 53151, 97942 #### [facility] [address] [place] [address], [facility] MCV (RBC) [Entitic vol] 87.4 fL Normal 82.0-98.0 [facility] Comment on above: Order Comment: If no t done in ED No: Do not add to previous draw Performed By: #### 0 0121, 63137, 64329, 81386, 81126 #### [facility] [address] [place] [address], [facility] Nucleated RBC/100 WBC (Bld) [Ratio] 0 % Normal 0-0 [facility] Comment on above: Order Comment: If no t done in ED No: Do not add to previous draw Performed By: #### 0 0121, 47066, 65315, 43208, 10353 #### [facility] [address] [place] [address], [facility] PLAT CNT 288 10*3/uL Normal 150-400 The [facility] Comment on above: Order Comment: If no t done in ED No: Do not add to previous draw Performed By: #### 0 0121, 65329, 96918, 87901, 32660 #### [facility] [address] [place] [address], [facility] RBC (Bld) [#/Vol] 6.37 10*6/uL High 4.20-5.70 [facility] Comment on above: Order Comment: If no t done in ED No: Do not add to previous draw Performed By: #### 0 0121, 60876, 57043, 08413, 65428 #### [facility] [address] [place] [address], [facility] WBC (Bld) [#/Vol] 11.26 10*3/uL High 4.00-10.60 [facility] Comment on above: Order Comment: If no t done in ED No: Do not add to previous draw Performed By: #### 0 0121, 51298, 87386, 27887, 84359 #### [facility] [address] [place] [address], [place] COMP METABOLIC PANELon 03-19 Albumin [Mass/Vol] 3.8 g/dL Normal 3.5-5.7 [facility] Comment on above: Order Comment: R/O P ulmonary Edema Performed By: #### 0 0121, 65992, 84982 ####[facility] [facility] [place] [address], [facility] ALKALINE PHOSPH 30 IU/L Low 34-104 The [facility] Comment on above: Order Comment: R/O P ulmonary Edema Performed By: #### 0 0121, 90938, 45962 ####[facility] [place] [address], [facility] ALT [Catalytic activity/Vol] 37 U/L Normal 7-52 [facility] Comment on above: Order Comment: R/O P ulmonary Edema Performed By: #### 0 0121, 24529, 06406 ####[facility] [facility] [place] [address], [facility] AST [Catalytic activity/Vol] 154 U/L High 13-39 [facility] Comment on above: Order Comment: R/O P ulmonary Edema Performed By: #### 0 0121, 26696, 10225 ####[facility] [facility] [place] [address], [facility] Bilirubin [Mass/Vol] 1.9 mg/dL High 0.3-1.0 [facility] Comment on above: Order Comment: R/O P ulmonary Edema Performed By: #### 0 0121, 64316, 57099 ####[facility] [facility] [place] [address], [facility] Calcium [Mass/Vol] 8.9 mg/dL Normal 8.6-10.3 [facility] Comment on above: Order Comment: R/O P ulmonary Edema Performed By: #### 0 0121, 96681, 70369 ####[facility] [facility] [place] [address], [facility] Chloride [Moles/Vol] 113 mmol/L High 98-107 [facility] Comment on above: Order Comment: R/O P ulmonary Edema Performed By: #### 0 0121, 64057, 98087 ####[facility] [place] [address], [facility] CO2 [Moles/Vol] 13 mmol/L Critically low 21-31 [facility] Comment on above: Order Comment: R/O P ulmonary Edema Result Comment: M-CR ITICAL RESULT(S) REVIEWED, CALLED TO AND READ BACK BY RN THU CEDENO @[facility] 03.19.19 Performed By: #### 0 0121, 26849, 59067 ####[facility] Creatinine [Mass/Vol] 1.11 mg/dL Normal 0.70-1.30 [facility] Comment on above: Order Comment: R/O P ulmonary Edema Performed By: #### 0 0121, 27360, 00957 ####[facility] [place] [address], [facility] GFR/1.73 sq M predicted among blacks MDRD (S/P/Bld) [Vol rate/Area] mL/min/{1.73_m2} Normal >60 [facility] Comment on above: Order Comment: R/O P ulmonary Edema Performed By: #### 0 0121, 23199, 58838 ####[facility] [place] [address], [facility] GFR/1.73 sq M predicted among non-blacks MDRD (S/P/Bld) [Vol rate/Area] mL/min/{1.73_m2} Normal >60 [facility] Comment on above: Order Comment: R/O P ulmonary Edema Performed By: #### 0 0121, 75661, 11685 ####[facility] [place] [address], [facility] Glucose [Mass/Vol] 132 mg/dL High 70-100 The [facility] Comment on above: Order Comment: R/O P ulmonary Edema Performed By: #### 0 0121, 61198, 55003 ####[facility] [place] [address], [facility] Potassium [Moles/Vol] 4.4 mmol/L Normal 3.5-5.1 [facility] Comment on above: Order Comment: R/O P ulmonary Edema Performed By: #### 0 0121, 46541, 42116 ####[facility] [place] [address], [facility] Protein [Mass/Vol] 5.6 g/dL Low 6.0-8.3 [facility] Comment on above: Order Comment: R/O P ulmonary Edema Performed By: #### 0 0121, 60874, 39444 ####[facility] Sodium [Moles/Vol] 140 mmol/L Normal 136-145 [facility] Comment on above: Order Comment: R/O P ulmonary Edema Performed By: #### 0 0121, 59124, 52608 ####[facility] [place] [address], [facility] Urea nitrogen [Mass/Vol] 18 mg/dL Normal 7-25 [facility] Comment on above: Order Comment: R/O P ulmonary Edema Performed By: #### 0 0121, 56284, 96999 ####[facility] [place] [address], [facility] COOXIMETRYon 03-19-2019 COHB 2 % Normal [facility] Comment on above: Order Comment: No: D o not add to previous draw Performed By: #### 5 7307 #### [facility] [address] [place] [address], [facility] METHB 1 % Normal [facility] Comment on above: Order Comment: No: D o not add to previous draw Performed By: #### 5 7307 #### [facility] [address] [place] [address], [facility] Oxygen saturation in Blood 66.9 % Normal 65.0-75.0 [facility] Comment on above: Order Comment: No: D o not add to previous draw Performed By: #### 5 7307 #### [facility] [address] [place] [address], [place] THB 13.1 g/dL Normal [facility] Comment on above: Order Comment: No: D o not add to previous draw Performed By: #### 5 7307 #### [facility] [address] [place] [address], [place] COHB 2 % Normal [facility] Comment on above: Performed By: #### 7 0207 ####[facility] [place] [address], [place] METHB 1 % Normal [facility] Comment on above: Performed By: #### 7 0207 ####[facility] [place] [address], [place] Oxygen saturation in Blood 59.2 % Low 65.0-75.0 [facility] Comment on above: Performed By: #### 7 0207 ####[facility] [place] [address], [place] THB 14.0 g/dL Normal [facility] Comment on above: Performed By: #### 7 0207 ####[facility] [place] [address], [facility] LACTATE BLOODon 03-19-2019 Lactate [Moles/Vol] 2.6 mmol/L Critically high 0.5-2.2 [facility] Comment on above: Order Comment: No: D o not add to previous draw Result Comment: M-CR ITICAL RESULT(S) REVIEWED, CALLED TO AND READ BACK BY PEDRO MONTANO @2136 03.19.19 Performed By: #### 5 7307 #### [facility] [address] [place] [address], [facility] MAGNESIUM BLOODon 03-19-2019 Magnesium [Mass/Vol] 2.4 mg/dL Normal 1.9-2.7 [facility] Comment on above: Order Comment: No: D o not add to previous draw Performed By: #### 5 7307 #### [facility] [address] [place] [address], [place] Magnesium [Mass/Vol] 2.7 mg/dL Normal 1.9-2.7 [facility] Comment on above: Order Comment: R/O P ulmonary Edema Performed By: #### 0 0121, 32911, 62503 ####[facility] [place] [address], [facility] Magnesium [Mass/Vol] 2.9 mg/dL High 1.9-2.7 [facility] Comment on above: Performed By: #### 8 5123, 59877 #### [facility] [address] [place] [address], [place] PERFUSION BLOOD PANELon 03-01 BASE EXCESS -4.0 mmol/L Low -2.0-3.0 The [facility] Comment on above: Performed By: #### 8 4913, 80069 #### [facility] [address] [place] [address], [place] Glucose [Mass/Vol] 143 mg/dL High 70-105 [facility] Comment on above: Performed By: #### 8 5123, 15399 #### [facility] [address] [place] [address], [place] Hematocrit (Bld) [Volume fraction] 39 % Normal 38-51 [facility] Comment on above: Performed By: #### 8 5123, 26839 #### [facility] [address] [place] [address], [facility] Hemoglobin (Bld) [Mass/Vol] 13.3 g/dL Normal 12.0-17.0 [facility] Comment on above: Performed By: #### 8 5123, 32827 #### [facility] [address] [place] [address], [facility] IONIZED CALCIUM 1.58 mmol/L Critically high 1.12-1.32 [facility] Comment on above: Performed By: #### 8 5123, 20461 #### [facility] [address] [place] [address], [facility] Oxygen (Bld) [Partial pressure] 59.0 mm[Hg] Low 80.0-105.0 The [facility] Comment on above: Performed By: #### 8 5123, 53028 #### [facility] [address] [place] [address], [facility] PCO2 35.4 mmHg Normal 35.0-45.0 [facility] Comment on above: Performed By: #### 8 5123, 94942 #### [facility] [address] [place] [address], [facility] pH (Bld) 7.37 [pH] Normal 7.35-7.45 [facility] Comment on above: Performed By: #### 8 5123, 64961 #### [facility] [address] [place] [address], [place] Potassium [Moles/Vol] 3.7 mmol/L Normal 3.5-4.9 [facility] Comment on above: Performed By: #### 8 5123, 49725 #### [facility] [address] [place] [address], [place] Sodium [Moles/Vol] 144 mmol/L Normal 138-146 [facility] Comment on above: Performed By: #### 8 5123, 69089 #### [facility] [address] [place] [address], [place] BASE EXCESS -5.0 mmol/L Low -2.0-3.0 The [facility] Comment on above: Performed By: #### 8 512, 69513 #### [facility] [address] [place] [address], [place] Glucose [Mass/Vol] 158 mg/dL High 70-105 [facility] Comment on above: Performed By: #### 8 512, 28530 #### [facility] [address] [place] [address], [place] Hematocrit (Bld) [Volume fraction] 41 % Normal 38-51 [facility] Comment on above: Performed By: #### 8 512, 86322 #### [facility] [address] [place] [address], [place] Hemoglobin (Bld) [Mass/Vol] 13.9 g/dL Normal 12.0-17.0 [facility] Comment on above: Performed By: #### 8 512, 04927 #### [facility] [address] [place] [address], [place] IONIZED CALCIUM 1.34 mmol/L High 1.12-1.32 [facility] Comment on above: Performed By: #### 8 5123, 49521 #### [facility] [address] [place] [address], [place] Oxygen (Bld) [Partial pressure] 51.0 mm[Hg] Low 80.0-105.0 The [facility] Comment on above: Performed By: #### 8 5123, 80178 #### [facility] [address] [place] [address], [place] PCO2 34.5 mmHg Low 35.0-45.0 [facility] Comment on above: Performed By: #### 8 512, 31277 #### [facility] [address] [place] [address], [place] pH (Bld) 7.36 [pH] Normal 7.35-7.45 [facility] Comment on above: Performed By: #### 8 512, 15698 #### [facility] [address] [place] [address], [place] Potassium [Moles/Vol] 4.2 mmol/L Normal 3.5-4.9 [facility] Comment on above: Performed By: #### 8 512, 37427 #### [facility] [address] [place] [address], [place] Sodium [Moles/Vol] 142 mmol/L Normal 138-146 [facility] Comment on above: Performed By: #### 8 512, 77626 #### [facility] [address] [place] [address], [place] BASE EXCESS -1.0 mmol/L Normal -2.0-3.0 The [facility] Comment on above: Performed By: #### 8 512, 69837 #### [facility] [address] [place] [address], [place] Glucose [Mass/Vol] 163 mg/dL High 70-105 [facility] Comment on above: Performed By: #### 8 512, 84357 #### [facility] [address] [place] [address], [place] Hematocrit (Bld) [Volume fraction] 42 % Normal 38-51 [facility] Comment on above: Performed By: #### 8 5123, 76391 #### [facility] [address] [place] [address], [place] Hemoglobin (Bld) [Mass/Vol] 14.3 g/dL Normal 12.0-17.0 [facility] Comment on above: Performed By: #### 8 512, 77950 #### [facility] [address] [place] [address], [place] IONIZED CALCIUM 1.05 mmol/L Low 1.12-1.32 [facility] Comment on above: Performed By: #### 8 512, 94944 #### [facility] [address] [place] [address], [place] Oxygen (Bld) [Partial pressure] 368.0 mm[Hg] High 80.0-105.0 The [facility] Comment on above: Performed By: #### 8 512, 78895 #### [facility] [address] [place] [address], [place] PCO2 39.7 mmHg Normal 35.0-45.0 [facility] Comment on above: Performed By: #### 8 512, 76757 #### [facility] [address] [place] [address], [place] pH (Bld) 7.39 [pH] Normal 7.35-7.45 [facility] Comment on above: Performed By: #### 8 512, 83447 #### [facility] [address] [place] [address], [place] Potassium [Moles/Vol] 3.9 mmol/L Normal 3.5-4.9 [facility] Comment on above: Performed By: #### 8 512, 17571 #### [facility] [address] [place] [address], [place] Sodium [Moles/Vol] 145 mmol/L Normal 138-146 [facility] Comment on above: Performed By: #### 8 512, 00834 #### [facility] [address] [place] [address], [place] BASE EXCESS -4.0 mmol/L Low -2.0-3.0 The [facility] Comment on above: Performed By: #### 8 5123, 12368 #### [facility] [address] [place] [address], [place] Glucose [Mass/Vol] 169 mg/dL High 70-105 [facility] Comment on above: Performed By: #### 8 5123, 92778 #### [facility] [address] [place] [address], [place] Hematocrit (Bld) [Volume fraction] 40 % Normal 38-51 [facility] Comment on above: Performed By: #### 8 5123, 18451 #### [facility] [address] [place] [address], [place] Hemoglobin (Bld) [Mass/Vol] 13.6 g/dL Normal 12.0-17.0 [facility] Comment on above: Performed By: #### 8 5123, 98242 #### [facility] [address] [place] [address], [place] IONIZED CALCIUM 1.37 mmol/L High 1.12-1.32 [facility] Comment on above: Performed By: #### 8 5123, 72638 #### [facility] [address] [place] [address], [place] Oxygen (Bld) [Partial pressure] 301.0 mm[Hg] High 80.0-105.0 [facility] Comment on above: Performed By: #### 8 5123, 02013 #### [facility] [address] [place] [address], [place] PCO2 36.1 mmHg Normal 35.0-45.0 [facility] Comment on above: Performed By: #### 8 5123, 38257 #### [facility] [address] [place] [address], [place] pH (Bld) 7.38 [pH] Normal 7.35-7.45 [facility] Comment on above: Performed By: #### 8 5123, 28614 #### [facility] [address] [place] [address], [place] Potassium [Moles/Vol] 4.9 mmol/L Normal 3.5-4.9 [facility] Comment on above: Performed By: #### 8 5123, 86131 #### [facility] [address] [place] [address], [place] Sodium [Moles/Vol] 137 mmol/L Low 138-146 [facility] Comment on above: Performed By: #### 8 5123, 60856 #### [facility] [address] [place] [address], [place] BASE EXCESS -3.0 mmol/L Low -2.0-3.0 [facility] Comment on above: Performed By: #### 8 [id number], [id number] #### [facility] [address] [place] [address], [place] Glucose [Mass/Vol] 174 mg/dL High 70-105 [facility] Comment on above: Performed By: #### 8 [id number], [id number] #### [facility] [address] [place] [address], [place] Hematocrit (Bld) [Volume fraction] 45 % Normal 38-51 [facility] Comment on above: Performed By: #### 8 [id number], [id number] #### [facility] [address] [place] [address], [place] Hemoglobin (Bld) [Mass/Vol] 15.3 g/dL Normal 12.0-17.0 [facility] Comment on above: Performed By: #### 8 [id number], [id number] #### [facility] [address] [place] [address], [place] IONIZED CALCIUM 1.06 mmol/L Low 1.12-1.32 The [facility] Comment on above: Performed By: #### 8 5123, 50637 #### [facility] [address] [place] [address], [place] Oxygen (Bld) [Partial pressure] 404.0 mm[Hg] High 80.0-105.0 The [facility] Comment on above: Performed By: #### 8 5123, 05155 #### [facility] [address] [place] [address], [place] PCO2 42.4 mmHg Normal 35.0-45.0 The [facility] Comment on above: Performed By: #### 8 5123, 41093 #### [facility] [address] [place] [address], [place] pH (Bld) 7.35 [pH] Normal 7.35-7.45 [facility] Comment on above: Performed By: #### 8 5123, 51321 #### [facility] [address] [place] [address], [place] Potassium [Moles/Vol] 4.7 mmol/L Normal 3.5-4.9 [facility] Comment on above: Performed By: #### 8 5123, 33718 #### [facility] [address] [place] [address], [place] Sodium [Moles/Vol] 141 mmol/L Normal 138-146 The [facility] Comment on above: Performed By: #### 8 5123, 69046 #### [facility] [address] [place] [address], [place] BASE EXCESS -2.0 mmol/L Normal -2.0-3.0 The [facility] Comment on above: Performed By: #### 8 5123, 73274 #### [facility] [address] [place] [address], [place] Glucose [Mass/Vol] 184 mg/dL High 70-105 The [facility] Comment on above: Performed By: #### 8 5123, 85214 #### [facility] [address] [place] [address], [place] Hematocrit (Bld) [Volume fraction] 46 % Normal 38-51 [facility] Comment on above: Performed By: #### 8 5123, 48837 #### [facility] [address] [place] [address], [place] Hemoglobin (Bld) [Mass/Vol] 15.6 g/dL Normal 12.0-17.0 [facility] Comment on above: Performed By: #### 8 5123, 29110 #### [facility] [address] [place] [address], [place] IONIZED CALCIUM 1.06 mmol/L Low 1.12-1.32 [facility] Comment on above: Performed By: #### 8 5123, 06838 #### [facility] [address] [place] [address], [place] Oxygen (Bld) [Partial pressure] 374.0 mm[Hg] High 80.0-105.0 [facility] Comment on above: Performed By: #### 8 5123, 73898 #### [facility] [address] [place] [address], [place] PCO2 43.3 mmHg Normal 35.0-45.0 [facility] Comment on above: Performed By: #### 8 5123, 47583 #### [facility] [address] [place] [address], [place] pH (Bld) 7.34 [pH] Low 7.35-7.45 [facility] Comment on above: Performed By: #### 8 5123, 14612 #### [facility] [address] [place] [address], [place] Potassium [Moles/Vol] 4.8 mmol/L Normal 3.5-4.9 [facility] Comment on above: Performed By: #### 8 5123, 50361 #### [facility] [address] [place] [address], [place] Sodium [Moles/Vol] 139 mmol/L Normal 138-146 [facility] Comment on above: Performed By: #### 8 5123, 24221 #### [facility] [address] [place] [address], [place] BASE EXCESS -2.0 mmol/L Normal -2.0-3.0 The [facility] Comment on above: Performed By: #### 8 5123, 72554 #### [facility] [address] [place] [address], [place] Glucose [Mass/Vol] 176 mg/dL High 70-105 [facility] Comment on above: Performed By: #### 8 5123, 35784 #### [facility] [address] [place] [address], [place] Hematocrit (Bld) [Volume fraction] 44 % Normal 38-51 [facility] Comment on above: Performed By: #### 8 5123, 18327 #### [facility] [address] [place] [address], [place] Hemoglobin (Bld) [Mass/Vol] 15.0 g/dL Normal 12.0-17.0 [facility] Comment on above: Performed By: #### 8 5123, 81894 #### [facility] [address] [place] [address], [place] IONIZED CALCIUM 1.07 mmol/L Low 1.12-1.32 [facility] Comment on above: Performed By: #### 8 5123, 88088 #### [facility] [address] [place] [address], [place] Oxygen (Bld) [Partial pressure] 284.0 mm[Hg] High 80.0-105.0 The [facility] Comment on above: Performed By: #### 8 5123, 91903 #### [facility] [address] [place] [address], [place] PCO2 47.5 mmHg High 35.0-45.0 [facility] Comment on above: Performed By: #### 8 5123, 13848 #### [facility] [address] [place] [address], [place] pH (Bld) 7.32 [pH] Low 7.35-7.45 [facility] Comment on above: Performed By: #### 8 5123, 68451 #### [facility] [address] [place] [address], [place] Potassium [Moles/Vol] 4.8 mmol/L Normal 3.5-4.9 [facility] Comment on above: Performed By: #### 8 5123, 32171 #### [facility] [address] [place] [address], [place] Sodium [Moles/Vol] 139 mmol/L Normal 138-146 [facility] Comment on above: Performed By: #### 8 5123, 06781 #### [facility] [address] [place] [address], [place] BASE EXCESS -2.0 mmol/L Normal -2.0-3.0 The [facility] Comment on above: Performed By: #### 0 0121, 93521, 84963, 66223, 29603 #### [facility] [address] [place] [address], [place] Glucose [Mass/Vol] 166 mg/dL High 70-105 [facility] Comment on above: Performed By: #### 0 0121, 54830, 61342, 13280, 61462 #### [facility] [address] [place] [address], [facility] Hematocrit (Bld) [Volume fraction] 45 % Normal 38-51 [facility] Comment on above: Performed By: #### 0 0121, 22204, 55064, 99853, 09261 #### [facility] [address] [place] [address], [place] Hemoglobin (Bld) [Mass/Vol] 15.3 g/dL Normal 12.0-17.0 [facility] Comment on above: Performed By: #### 0 0121, 99548, 59110, 57066, 60217 #### [facility] [address] [place] [address], [place] IONIZED CALCIUM 1.09 mmol/L Low 1.12-1.32 [facility] Comment on above: Performed By: #### 0 0121, 93623, 25702, 65083, 27372 #### [facility] [address] [place] [address], [place] Oxygen (Bld) [Partial pressure] 313.0 mm[Hg] High 80.0-105.0 [facility] Comment on above: Performed By: #### 0 0121, 18684, 39272, 42564, 47905 #### [facility] [address] [place] [address], [place] PCO2 47.7 mmHg High 35.0-45.0 [facility] Comment on above: Performed By: #### 0 0121, 10754, 21291, 96363, 32946 #### [facility] [address] [place] [address], [place] pH (Bld) 7.32 [pH] Low 7.35-7.45 [facility] Comment on above: Performed By: #### 0 0121, 97239, 93341, 99194, 90208 #### [facility] [address] [place] [address], [place] Potassium [Moles/Vol] 4.4 mmol/L Normal 3.5-4.9 [facility] Comment on above: Performed By: #### 0 0121, 39752, 04526, 63884, 04898 #### [facility] [address] [place] [address], [place] Sodium [Moles/Vol] 140 mmol/L Normal 138-146 [facility] Comment on above: Performed By: #### 0 0121, 74634, 67353, 01923, 02689 #### [facility] [address] [place] [address], [facility] BASE EXCESS -1.0 mmol/L Normal -2.0-3.0 The [facility] Comment on above: Performed By: #### 0 0121, 79658, 67166, 44307, 02353 #### [facility] [address] [place] [address], [facility] Glucose [Mass/Vol] 146 mg/dL High 70-105 [facility] Comment on above: Performed By: #### 0 0121, 99185, 87883, 43005, 13241 #### [facility] [address] [place] [address], [place] Hematocrit (Bld) [Volume fraction] 45 % Normal 38-51 [facility] Comment on above: Performed By: #### 0 0121, 37617, 90078, 42467, 67028 #### [facility] [address] [place] [address], [place] Hemoglobin (Bld) [Mass/Vol] 15.3 g/dL Normal 12.0-17.0 [facility] Comment on above: Performed By: #### 0 0121, 84888, 32504, 71668, 76785 #### [facility] [address] [place] [address], [place] IONIZED CALCIUM 1.06 mmol/L Low 1.12-1.32 The [facility] [place] [facility] Comment on above: Performed By: #### 0 0121, 85794, 50069, 91861, 16110 #### [facility] [address] [place] [address], [place] Oxygen (Bld) [Partial pressure] 319.0 mm[Hg] High 80.0-105.0 The [facility] Comment on above: Performed By: #### 0 0121, 19638, 84223, 72372, 42392 #### [facility] [address] [place] [address], [place] PCO2 50.9 mmHg High 35.0-45.0 [facility] Comment on above: Performed By: #### 0 0121, 64741, 24177, 50876, 68163 #### [facility] [address] [place] [address], [place] pH (Bld) 7.32 [pH] Low 7.35-7.45 [facility] Comment on above: Performed By: #### 0 0121, 89244, 87031, 11960, 35416 #### [facility] [address] [place] [address], [place] Potassium [Moles/Vol] 4.4 mmol/L Normal 3.5-4.9 [facility] Comment on above: Performed By: #### 0 0121, 31666, 08071, 75303, 13225 #### [facility] [address] [place] [address], [place] Sodium [Moles/Vol] 138 mmol/L Normal 138-146 [facility] Comment on above: Performed By: #### 0 0121, 13866, 74195, 27081, 02481 #### [facility] [address] [place] [address], [place] BASE EXCESS 0.0 mmol/L Normal -2.0-3.0 The [facility] Comment on above: Performed By: #### 0 0121, 68860, 13052, 58731, 80657 #### [facility] [address] [place] [address], [facility] Glucose [Mass/Vol] 116 mg/dL High 70-105 [facility] Comment on above: Performed By: #### 0 0121, 90596, 79338, 36836, 52610 #### [facility] [address] [place] [address], [facility] Hematocrit (Bld) [Volume fraction] 43 % Normal 38-51 [facility] Comment on above: Performed By: #### 0 0121, 17087, 41112, 77105, 74326 #### [facility] [address] [place] [address], [facility] Hemoglobin (Bld) [Mass/Vol] 14.6 g/dL Normal 12.0-17.0 [facility] Comment on above: Performed By: #### 0 0121, 77136, 81148, 17480, 73119 #### [facility] [address] [place] [address], [facility] IONIZED CALCIUM 1.05 mmol/L Low 1.12-1.32 [facility] Comment on above: Performed By: #### 0 0121, 34335, 82901, 07619, 54023 #### [facility] [address] [place] [address], [facility] Oxygen (Bld) [Partial pressure] 409.0 mm[Hg] High 80.0-105.0 [facility] Comment on above: Performed By: #### 0 0121, 81459, 78339, 60158, 22803 #### [facility] [address] [place] [address], [facility] PCO2 44.9 mmHg Normal 35.0-45.0 [facility] Comment on above: Performed By: #### 0 0121, 05448, 85393, 89640, 99749 #### [facility] [address] [place] [address], [place] pH (Bld) 7.36 [pH] Normal 7.35-7.45 [facility] Comment on above: Performed By: #### 0 0121, 50499, 97862, 20214, 08146 #### [facility] [address] [place] [address], [place] Potassium [Moles/Vol] 4.5 mmol/L Normal 3.5-4.9 [facility] Comment on above: Performed By: #### 0 0121, 54778, 53122, 20915, 89346 #### [facility] [address] [place] [address], [place] Sodium [Moles/Vol] 138 mmol/L Normal 138-146 [facility] Comment on above: Performed By: #### 0 0121, 41386, 48860, 90740, 14170 #### [facility] [address] [place] [address], [place] BASE EXCESS 0.0 mmol/L Normal -2.0-3.0 The [facility] Comment on above: Performed By: #### 0 0121, 59979, 54552, 42389, 77277 #### [facility] [address] [place] [address], [place] Glucose [Mass/Vol] 101 mg/dL Normal 70-105 [facility] Comment on above: Performed By: #### 0 0121, 88604, 74671, 78121, 57123 #### [facility] [address] [place] [address], [place] Hematocrit (Bld) [Volume fraction] 44 % Normal 38-51 [facility] Comment on above: Performed By: #### 0 0121, 55499, 96355, 83846, 40530 #### [facility] [address] [place] [address], [facility] Hemoglobin (Bld) [Mass/Vol] 15.0 g/dL Normal 12.0-17.0 [facility] Comment on above: Performed By: #### 0 0121, 18310, 42886, 02828, 17148 #### [facility] [address] [place] [address], [place] IONIZED CALCIUM 1.02 mmol/L Low 1.12-1.32 [facility] Comment on above: Performed By: #### 0 0121, 32369, 23245, 46710, 80826 #### [facility] [address] [place] [address], [facility] Oxygen (Bld) [Partial pressure] 516.0 mm[Hg] High 80.0-105.0 [facility] Comment on above: Performed By: #### 0 0121, 15318, 07435, 67626, 17344 #### [facility] [address] [place] [address], [place] PCO2 50.7 mmHg High 35.0-45.0 [facility] Comment on above: Performed By: #### 0 0121, 96345, 65930, 32555, 59162 #### [facility] [address] [place] [address], [place] pH (Bld) 7.33 [pH] Low 7.35-7.45 [facility] Comment on above: Performed By: #### 0 0121, 60098, 89888, 95039, 80969 #### [facility] [address] [place] [address], [place] Potassium [Moles/Vol] 4.1 mmol/L Normal 3.5-4.9 [facility] Comment on above: Performed By: #### 0 0121, 48768, 27763, 52465, 20948 #### [facility] [address] [place] [address], [place] Sodium [Moles/Vol] 137 mmol/L Low 138-146 [facility] Comment on above: Performed By: #### 0 0121, 23952, 95855, 19902, 85540 #### [facility] [address] [place] [address], [place] Hematocrit (Bld) [Volume fraction] 43 % Normal 38-51 [facility] Comment on above: Performed By: #### 0 0121, 67764, 29466, 99912, 01745 #### [facility] [address] [place] [address], [place] Hemoglobin (Bld) [Mass/Vol] 14.6 g/dL Normal 12.0-17.0 [facility] Comment on above: Performed By: #### 0 0121, 67002, 72773, 50408, 86308 #### [facility] [address] [place] [address], [place] Oxygen (Bld) [Partial pressure] 51.0 mm[Hg] Normal The [facility] Comment on above: Performed By: #### 0 0121, 67700, 69688, 34009, 63245 #### [facility] [address] [place] [address], [place] BASE EXCESS -4.0 mmol/L Low -2.0-3.0 The [facility] Comment on above: Performed By: #### 0 0121, 29864, 68088, 63357, 47364 #### [facility] [address] [place] [address], [place] Glucose [Mass/Vol] 104 mg/dL Normal 70-105 [facility] Comment on above: Performed By: #### 0 0121, 38449, 43253, 40660, 94872 #### [facility] [address] [place] [address], [place] Hematocrit (Bld) [Volume fraction] 55 % High 38-51 [facility] Comment on above: Performed By: #### 0 0121, 57998, 87966, 87727, 50758 #### [facility] [address] [place] [address], [place] Hemoglobin (Bld) [Mass/Vol] 18.7 g/dL High 12.0-17.0 [facility] Comment on above: Performed By: #### 0 0121, 68483, 16920, 64449, 84039 #### [facility] [address] [place] [address], [facility] IONIZED CALCIUM 1.24 mmol/L Normal 1.12-1.32 [facility] Comment on above: Performed By: #### 0 0121, 01555, 10330, 73257, 93008 #### [facility] [address] [place] [address], [place] Oxygen (Bld) [Partial pressure] 159.0 mm[Hg] High 80.0-105.0 [facility] Comment on above: Performed By: #### 0 0121, 44424, 68228, 48806, 14631 #### [facility] [address] [place] [address], [place] PCO2 48.7 mmHg High 35.0-45.0 [facility] Comment on above: Performed By: #### 0 0121, 32900, 50224, 64876, 69242 #### [facility] [address] [place] [address], [place] pH (Bld) 7.30 [pH] Low 7.35-7.45 [facility] Comment on above: Performed By: #### 0 0121, 37458, 58403, 84111, 95403 #### [facility] [address] [place] [address], [place] Potassium [Moles/Vol] 4.1 mmol/L Normal 3.5-4.9 [facility] Comment on above: Performed By: #### 0 0121, 33476, 65967, 82920, 01429 #### [facility] [address] [place] [address], [place] Sodium [Moles/Vol] 139 mmol/L Normal 138-146 [facility] Comment on above: Performed By: #### 0 0121, 00832, 13949, 33020, 94059 #### [facility] [address] [place] [address], [place] PHOSPHORUS BLOODon 9 Phosphate [Mass/Vol] 4.3 mg/dL Normal 2.5-5.0 [facility] Comment on above: Order Comment: R/O P ulmonary Edema Performed By: #### 0 0121, 02212, 28913 ####[facility] [facility] [place] [address], [place] POC GLUCOSE LABon 03-19-2019 Glucose [Mass/Vol] 115 mg/dL High 70-100 [facility] Comment on above: Performed By: #### 5 7307 #### [facility] [address] [place] [address], [place] Glucose [Mass/Vol] 145 mg/dL High 70-100 [facility] Comment on above: Performed By: #### 5 7307 #### [facility] [address] [place] [address], [place] Glucose [Mass/Vol] 121 mg/dL High 70-100 [facility] Comment on above: Performed By: #### 8 5499 ####[facility] [place] [address], [place] Glucose [Mass/Vol] 122 mg/dL High 70-100 [facility] Comment on above: Performed By: #### 8 5499 ####[facility] [address] [place] [address] PORTABLE CHEST 1 VIEWon 03-01 PORTABLE CHEST 1 VIEW [facility] Department of Radiology [address] [place] [address] ======== Patient Name: TRACIE CRAIN : 1965 Sex: M Age: Race: NA Pt. Location: [id number] Patient Status: I Ordered Date: 03/19/2019 5:50:00 [...] the upper thoracic trachea in satisfactory position. Pomona-Sher catheter, chest tubes and enteric tube appear [...] findings. Electronically signed by:Yenni Osuna. Transcribed by: [email or web address], User Resident: EMILIA SHERMAN Electronically Signed by: YENNI OSUNA @ 03/20/2019 05:05 PM I personally read this/these film(s) with this resident Normal [facility] Comment on above: Order Comment: << On admission If not done in ED>> No: Do not add to previous draw PORTABLE CHEST 1 VIEW [facility] Department of Radiology [address] [place] [id number] ======== Patient Name: TRACIE CRAIN : 1965 Sex: M Age: Race: NA Pt. Location: [id number] Patient Status: I Ordered Date: 03/19/2019 4:45:00 [...] right-sided chest tubes appear in satisfactory position. Pomona-Sher catheter with tip projecting over the pulmonary [...] findings. Electronically signed by:Divya Collins. Transcribed by: [email or web address], User Resident: ANAI ALVARADO Electronically Signed by: DIVYA COLLINS @ 03/20/2019 11:00 AM I personally read this/these film(s) with this resident Normal [facility] Comment on above: Order Comment: << On admission If not done in ED>> No: Do not add to previous draw PORTABLE CHEST 1 VIEW [facility] Department of Radiology [address] [place] [id number] ======== Patient Name: TRACIE CRAIN : 1965 Sex: M Age: Race: NA Pt. Location: [id number] Patient Status: I Ordered Date: 03/19/2019 3:55:00 [...] tubes are in place. No appreciable pneumothorax. Pomona-Sher catheter in place likely terminating in the [...] disease most likely representing multifocal atelectasis. * Pomona-Sher catheter likely terminating in the proximal right main pulmonary artery. * Trace pleural fluid bilaterally. Approved by:Pierce Sherman on 03/19/2019 5:04 PM EDT. I, Yenni Osuna, have reviewed the images and report and concur with these findings. Electronically signed by:Yenni Osuna. Transcribed by: [email or web address], User Resident: EMILIA SHERMAN Electronically Signed by: YENNI OSUNA @ 03/20/2019 05:04 PM I personally read this/these film(s) with this resident Normal [facility] Comment on above: Order Comment: << On admission If not done in ED>> No: Do not add to previous draw PROTHROMBIN TIMEon 9 INR Coag (PPP) [Relative time] 1.60 {INR} High 0.91-1.16 [facility] Comment on above: Order Comment: R/O P ulmonary Edema Result Comment: [facility] RECOMMENDED INR FOR WARFARIN THERAPY ------- ------- [...] CHEST 1995;[id number]. Performed By: #### 5 6101 ####[facility] [facility] [place] [address], [facility] PT Coag (PPP) [Time] 19.1 s High 12.3-14.8 [facility] Comment on above: Order Comment: R/O P ulmonary Edema Result Comment: ALL RESULTS MUST BE INTERPRETED WITH RESPECT TO BLOOD DRAWING ARTIFACT OR DILUTION ERROR OF ANTICOAGULANT AT THE TIME OF SAMPLING. Performed By: #### [id number] ####[facility] [facility] [place] [address], [facility] INR Coag (PPP) [Relative time] 1.68 {INR} High 0.91-1.16 [facility] Comment on above: Order Comment: If no t done in ED No: Do not add to previous draw Result Comment: [facility] RECOMMENDED INR FOR WARFARIN THERAPY ------- ------- [...] CHEST 1995;108:[id number]. Performed By: #### [id number] #### [facility] [address] [facility] PT Coag (PPP) [Time] 19.9 s High 12.3-14.8 [facility] Comment on above: Order Comment: If no t done in ED No: Do not add to previous draw Result Comment: ALL RESULTS MUST BE INTERPRETED WITH RESPECT TO BLOOD DRAWING ARTIFACT OR DILUTION ERROR OF ANTICOAGULANT AT THE TIME OF SAMPLING. Performed By: #### 8 5123, 30585 #### [facility] [address] INR Coag (PPP) [Relative time] 1.02 {INR} Normal 0.91-1.16 [facility] Comment on above: Order Comment: If [...] CHEST 1995;[id number]. Performed By: #### 0 0121, 16741, 21570, 51742, 57786 #### [facility] [address] PT Coag (PPP) [Time] 13.4 s Normal 12.3-14.8 [facility] Comment on above: Order Comment: If no t done in ED No: Do not add to previous draw Result Comment: ALL RESULTS MUST BE INTERPRETED WITH RESPECT TO BLOOD DRAWING ARTIFACT OR DILUTION ERROR OF ANTICOAGULANT AT THE TIME OF SAMPLING. Performed By: #### 0 0121, 14499, 78887, 96692, 50316 #### [facility] [address] [facility] [place] [address], [facility] RBC'S 2 UNITSon 03-19-2019 CROSSMATCH INTERP 1 COMP [facility] Comment on above: Performed By: #### 0 0121, 25317, 82739, 95121, 57319 #### [facility] [address] [facility] [address], [facility] CROSSMATCH INTERP 2 COMP [facility] Comment on above: Performed By: #### 0 0121, 31413, 85732, 49159, 08592 #### [facility] [address] [facility] [place] [address], [facility] PRODUCT CODE 1 E0332 Normal [facility] Comment on above: Performed By: #### 0 0121, 06743, 09298, 57160, 69658 #### [facility] [address] [facility]. [place] [id number], [facility] PRODUCT CODE 2 E0336 Normal [facility] Comment on above: Performed By: #### 0 0121, 46171, 86803, 79714, 99717 #### [facility] [address] [place] [address], [facility] PRODUCT STATUS 1 RE Normal [facility] Comment on above: Result Comment: Resu lt changed by IF on 03/19/2019 08:33. The previous value was XM. Result changed by IF on 03/19/2019 16:19. The previous value was IS. Result changed by IF on 03/20/2019 09:43. The previous value was XM. Result changed by IF on 03/20/2019 09:46. The previous value was XX. Performed By: #### 0 0121, 95407, 76777, 22344, 73102 #### [facility] [address] [facility] [place] [address], [facility] PRODUCT STATUS 2 RE Normal [facility] Comment on above: Result Comment: Resu lt changed by IF on 03/19/2019 08:33. The previous value was XM. Result changed by IF on 03/19/2019 16:19. The previous value was IS. Result changed by IF on 03/20/2019 09:43. The previous value was XM. Result changed by IF on 03/20/2019 11:11. The previous value was XX. Performed By: #### 0 0121, 36865, 04668, 04844, 24897 #### [facility] [address] [place] [address], [facility] UNIT ABO 1 O Normal [facility] Comment on above: Performed By: #### 0 0121, 91273, 80777, 93448, 02436 #### [facility] [address] [place] [address], [place] UNIT ABO 2 O Normal [facility] Comment on above: Performed By: #### 0 0121, 28140, 94818, 81595, 81413 #### [facility] [address] UNIT ID 1 [id number] Normal The [facility] Comment on above: Performed By: #### 0 0121, 95594, 07261, 87742, 96806 #### [facility] [address] UNIT ID 2 [id number] Normal [facility] Comment on above: Performed By: #### 0 0121, 68910, 36117, 07684, 36581 #### [facility] [address] UNIT RH 1 Negative Normal [facility] Comment on above: Performed By: #### 0 0121, 60901, 03147, 10502, 86423 #### [facility] [address] [facility] [address] UNIT RH 2 Negative Normal [facility] Comment on above: Performed By: #### 0 0121, 32443, 38749, 61204, 54111 #### [facility] [address] [facility]. [address] *MRSA/MSSA DNA NASALon 03-18 *MRSA/MSSA DNA NASAL Clinical Report: (D ) Specimen: NASAL SWAB Collected: 03/18/2019 17:05 Status: Final Last Updated: 03/19/2019 12:12 MSSA DNA (Final) Negative MRSA DNA (Final) Negative Normal [facility] Comment on above: Performed By: #### 8 5123, 75150 #### [facility] [address] [facility]. [address] APTTon 03-18-2019 aPTT Coag (Bld) [Time] 58.1 s High 25.0-35.0 [facility] Comment on above: Order Comment: << [...] OF HEPARIN. Performed By: #### 0 0121, 83950, 23328, 23814, 81572 #### [facility] [address] [facility] [place] [address], [facility] aPTT Coag (Bld) [Time] 67.7 s High 25.0-35.0 [facility] Comment on above: Order Comment: << [...] OF HEPARIN. Performed By: #### 0 0121, 70412, 00602, 75856, 01402 #### [facility] [address] [place] [address], [facility] aPTT Coag (Bld) [Time] 74.8 s Critically high 25.0-35.0 [facility] Comment on above: Order Comment: << [...] AT 0609. Performed By: #### 0 0121, 23469, 85013, 61294, 86211 #### [facility] [address] [place] [address], [facility] BASIC METABOLIC PANELon 02-28 Calcium [Mass/Vol] 9.2 mg/dL Normal 8.6-10.3 [facility] Comment on above: Order Comment: << ON ADMISSION If not done in ED>> No: Do not add to previous draw Performed By: #### 0 0121, 06261, 17398, 86675, 16619 #### [facility] [address] [place] [address], [facility] Chloride [Moles/Vol] 105 mmol/L Normal 98-107 [facility] Comment on above: Order Comment: << ON ADMISSION If not done in ED>> No: Do not add to previous draw Performed By: #### 0 0121, 27368, 50883, 34700, 96748 #### [facility] [address] [place] [address], [place] CO2 [Moles/Vol] 27 mmol/L Normal 21-31 [facility] Comment on above: Order Comment: << ON ADMISSION If not done in ED>> No: Do not add to previous draw Performed By: #### 0 0121, 75908, 97911, 76681, 83961 #### [facility] [address] [place] [address], [place] Creatinine [Mass/Vol] 1.11 mg/dL Normal 0.70-1.30 [facility] Comment on above: Order Comment: << ON ADMISSION If not done in ED>> No: Do not add to previous draw Performed By: #### 0 0121, 92622, 27633, 55326, 57357 #### [facility] [address] [place] [address], [place] GFR/1.73 sq M predicted among blacks MDRD (S/P/Bld) [Vol rate/Area] mL/min/{1.73_m2} Normal >60 [facility] Comment on above: Order Comment: << ON ADMISSION If not done in ED>> No: Do not add to previous draw Performed By: #### 0 0121, 57427, 96363, 01425, 15189 #### [facility] [address] [place] [address], [facility] GFR/1.73 sq M predicted among non-blacks MDRD (S/P/Bld) [Vol rate/Area] mL/min/{1.73_m2} Normal >60 [facility] Comment on above: Order Comment: << ON ADMISSION If not done in ED>> No: Do not add to previous draw Performed By: #### 0 0121, 90717, 77419, 02401, 84471 #### [facility] [address] [place] [address], [place] Glucose [Mass/Vol] 101 mg/dL High 70-100 [facility] Comment on above: Order Comment: << ON ADMISSION If not done in ED>> No: Do not add to previous draw Performed By: #### 0 0121, 78600, 58846, 80164, 61629 #### [facility] [address] [place] [address], [facility] Potassium [Moles/Vol] 4.2 mmol/L Normal 3.5-5.1 [facility] Comment on above: Order Comment: << ON ADMISSION If not done in ED>> No: Do not add to previous draw Performed By: #### 0 0121, 35281, 99764, 29603, 30149 #### [facility] [address] [place] [address], [place] Sodium [Moles/Vol] 136 mmol/L Normal 136-145 [facility] Comment on above: Order Comment: << ON ADMISSION If not done in ED>> No: Do not add to previous draw Performed By: #### 0 0121, 11690, 39474, 87718, 23605 #### [facility] [address] [place] [address], [facility] Urea nitrogen [Mass/Vol] 15 mg/dL Normal 7-25 [facility] Comment on above: Order Comment: << ON ADMISSION If not done in ED>> No: Do not add to previous draw Performed By: #### 0 0121, 03455, 11072, 37384, 80008 #### [facility] [address] [place], [place] [address] CBC COMPLETE BLOOD COUNTon 0 - Erythrocyte distribution width (RBC) [Ratio] 12.8 % Normal 11.5-15.0 [facility] Comment on above: Order Comment: << ON ADMISSION If not done in ED>> No: Do not add to previous draw Performed By: #### 0 0121, 61572, 46946, 87880, 95932 #### [facility] [address] [place], [place] [address] [place] [address] Hematocrit (Bld) [Volume fraction] 55.1 % High 39.0-50.0 [facility] Comment on above: Order Comment: << ON ADMISSION If not done in ED>> No: Do not add to previous draw Performed By: #### 0 0121, 05541, 62231, 52155, 90131 #### [facility] [address] [place] [address], [facility] Hemoglobin (Bld) [Mass/Vol] 17.5 g/dL High 13.0-17.0 [facility] Comment on above: Order Comment: << ON ADMISSION If not done in ED>> No: Do not add to previous draw Performed By: #### 0 0121, 40811, 02286, 37404, 82118 #### [facility] [address] [place] [address], [facility] MCH (RBC) [Entitic mass] 28.6 pg Normal 27.0-33.0 [facility] Comment on above: Order Comment: << ON ADMISSION If not done in ED>> No: Do not add to previous draw Performed By: #### 0 0121, 34145, 64069, 45160, 23280 #### [facility] [address] MCHC (RBC) [Mass/Vol] 31.8 g/dL Low 32.0-35.0 [facility] Comment on above: Order Comment: << ON ADMISSION If not done in ED>> No: Do not add to previous draw Performed By: #### 0 0121, 54256, 58840, 50354, 39500 #### [facility] [address] [facility] [address] MCV (RBC) [Entitic vol] 90.0 fL Normal 82.0-98.0 [facility] Comment on above: Order Comment: << ON ADMISSION If not done in ED>> No: Do not add to previous draw Performed By: #### 0 0121, 71876, 83388, 22150, 88887 #### [facility] [address] [facility] Nucleated RBC/100 WBC (Bld) [Ratio] 0 % Normal 0-0 [facility] Comment on above: Order Comment: << ON ADMISSION If not done in ED>> No: Do not add to previous draw Performed By: #### 0 0121, 06231, 63559, 88318, 17541 #### [facility] [address] [facility] [address], [facility] PLAT CNT 286 10*3/uL Normal 150-400 The [facility] Comment on above: Order Comment: << ON ADMISSION If not done in ED>> No: Do not add to previous draw Performed By: #### 0 0121, 55235, 13381, 51525, 50011 #### [facility] [address] [place] [address], [facility] RBC (Bld) [#/Vol] 6.12 10*6/uL High 4.20-5.70 [facility] Comment on above: Order Comment: << ON ADMISSION If not done in ED>> No: Do not add to previous draw Performed By: #### 0 0121, 52349, 49977, 02153, 17445 #### [facility] [address] WBC (Bld) [#/Vol] 9.33 10*3/uL Normal 4.00-10.60 [facility] Comment on above: Order Comment: << ON ADMISSION If not done in ED>> No: Do not add to previous draw Performed By: #### 0 0121, 06811, 96177, 95736, 77590 #### [facility] [address] MAGNESIUM BLOODon 03-18-2019 Magnesium [Mass/Vol] 2.4 mg/dL Normal 1.9-2.7 [facility] Comment on above: Performed By: #### 0 0121, 68024, 14873, 34479, 05248 #### [facility] [address] [facility] [address] TYPE AND SCREENon 03-18-2019 ABO INTERPRETATION O Normal [facility] Comment on above: Performed By: #### 0 0121, 77505, 28952, 33116, 63820 #### [facility] [address] [facility] [address] RH INTERPRETATION Negative Normal [facility] Comment on above: Performed By: #### 0 0121, 05274, 88778, 01682, 45505 #### [facility] [address] UFH HEPARIN ASSAYon 03-18-20 19 UNFRACTIONATED HEPARIN 0.19 IU/mL Low 0.30-0.70 [facility] Comment on above: Order Comment: If no t done in ED No: Do not add to previous draw Result Comment: Estefania roxaban and Apixaban will interfere with the anti Xa assay used to monitor UFH and LMWH. Performed By: #### 0 0121, 61146, 40806, 93439, 89679 #### [facility] [address] [place] [address], [facility] UNFRACTIONATED HEPARIN 0.29 IU/mL Low 0.30-0.70 [facility] Comment on above: Order Comment: << ON ADMISSION If not done in ED>> No: Do not add to previous draw Result Comment: Estefania roxaban and Apixaban will interfere with the anti Xa assay used to monitor UFH and LMWH. Performed By: #### 0 0121, 54544, 84546, 81940, 34338 #### [facility] [address] [place] [address], [facility] UNFRACTIONATED HEPARIN 0.25 IU/mL Low 0.30-0.70 [facility] Comment on above: Result Comment: Estefania roxaban and Apixaban will interfere with the anti Xa assay used to monitor UFH and LMWH. Performed By: #### 0 0121, 98640, 94832, 24254, 27971 #### [facility] [address] [place] [address], [facility] URINALYSISon 03-18-2019 Appearance (U) CLEAR Normal CLEAR [facility] Comment on above: Order Comment: If no t done in ED No: Do not add to previous draw Performed By: #### 0 0121, 55410, 03369, 89695, 71342 #### [facility] [address] [place] [address], [facility] Bilirubin [Mass/Vol] Negative Normal NEGATIVE [facility] Comment on above: Order Comment: If no t done in ED No: Do not add to previous draw Performed By: #### 0 0121, 61113, 37988, 77196, 48325 #### [facility] [address] [place] [address], [place] BLOOD Negative Normal NEGATIVE [facility] Comment on above: Order Comment: If no t done in ED No: Do not add to previous draw Performed By: #### 0 0121, 23315, 42965, 33398, 01984 #### [facility] [address] [place] [address], [place] Color (U) YELLOW Normal YELLOW [facility] Comment on above: Order Comment: If no t done in ED No: Do not add to previous draw Performed By: #### 0 0121, 07866, 55366, 12188, 05251 #### [facility] [address] [place] [address], [place] Glucose [Mass/Vol] Negative Normal NEGATIVE [facility] Comment on above: Order Comment: If no t done in ED No: Do not add to previous draw Performed By: #### 0 0121, 71384, 76175, 98803, 62924 #### [facility] [address] [place] [address], [place] KETONE Negative Normal NEGATIVE [facility] Comment on above: Order Comment: If no t done in ED No: Do not add to previous draw Performed By: #### 0 0121, 72488, 40338, 67437, 96608 #### [facility] [address] [place] [address], [place] LEUK RADHA Negative Normal NEGATIVE [facility] Comment on above: Order Comment: If no t done in ED No: Do not add to previous draw Performed By: #### 0 0121, 51612, 74398, 66332, 11752 #### [facility] [address] [place] [address], [place] MICRO NOT DONE negative chemical reactions unless requested in original order Normal [facility] Comment on above: Order Comment: If no t done in ED No: Do not add to previous draw Performed By: #### 0 0121, 97236, 47535, 89036, 24385 #### [facility] [address] [place] [address], [facility] Nitrite Ql (U) Negative Normal NEGATIVE [facility] Comment on above: Order Comment: If no t done in ED No: Do not add to previous draw Performed By: #### 0 0121, 51310, 30830, 29637, 49490 #### [facility] [address] [place] [address], [facility] pH (Bld) 6.0 Normal 5.0-8.0 [facility] Comment on above: Order Comment: If no t done in ED No: Do not add to previous draw Performed By: #### 0 0121, 08553, 65306, 82951, 79096 #### [facility] [address] [facility] [address], [facility] Protein (U) [Mass/Vol] Negative Normal NEGATIVE [facility] Comment on above: Order Comment: If no t done in ED No: Do not add to previous draw Performed By: #### 0 0121, 78984, 06238, 23262, 73489 #### [facility] [address] [facility]. [address] SPEC GRAV 1.017 Normal 1.015-1.020 The [facility] Comment on above: Order Comment: If no t done in ED No: Do not add to previous draw Performed By: #### 0 0121, 86047, 51487, 57636, 54454 #### [facility] [address] [facility]. [address] APTTon 03-17-2019 aPTT Coag (Bld) [Time] 67.3 s High 25.0-35.0 [facility] Comment on above: Order Comment: No: [...] THIS PURPOSE. Performed By: #### 0 0121, 50676, 99740, 99289, 13788 #### [facility] [address] [place] [address], [facility] BASIC METABOLIC PANELon 06- Calcium [Mass/Vol] 9.1 mg/dL Normal 8.6-10.3 [facility] Comment on above: Order Comment: No: D o not add to previous draw Performed By: #### 0 0121, 11359, 06748, 54346, 70229 #### [facility] [address] [place] [address], [facility] Chloride [Moles/Vol] 101 mmol/L Normal 98-107 [facility] Comment on above: Order Comment: No: D o not add to previous draw Performed By: #### 0 0121, 94092, 50049, 96675, 57784 #### [facility] [address] [place] [address], [facility] CO2 [Moles/Vol] 24 mmol/L Normal 21-31 [facility] Comment on above: Order Comment: No: D o not add to previous draw Performed By: #### 0 0121, 66546, 26300, 52655, 02501 #### [facility] [address] [place] [address], [facility] Creatinine [Mass/Vol] 1.02 mg/dL Normal 0.70-1.30 [facility] Comment on above: Order Comment: No: D o not add to previous draw Performed By: #### 0 0121, 48705, 51385, 37110, 00903 #### [facility] [address] [place] [address], [facility] GFR/1.73 sq M predicted among blacks MDRD (S/P/Bld) [Vol rate/Area] mL/min/{1.73_m2} Normal >60 [facility] Comment on above: Order Comment: No: D o not add to previous draw Performed By: #### 0 0121, 87333, 63126, 01506, 38783 #### [facility] [address] [place] [address], [place] GFR/1.73 sq M predicted among non-blacks MDRD (S/P/Bld) [Vol rate/Area] mL/min/{1.73_m2} Normal >60 [facility] Comment on above: Order Comment: No: D o not add to previous draw Performed By: #### 0 0121, 81725, 23573, 98829, 09322 #### [facility] [address] [place] [address], [place] Glucose [Mass/Vol] 102 mg/dL High 70-100 [facility] Comment on above: Order Comment: No: D o not add to previous draw Performed By: #### 0 0121, 87072, 23065, 86365, 27970 #### [facility] [address] [place] [address], [place] Potassium [Moles/Vol] 3.7 mmol/L Normal 3.5-5.1 [facility] Comment on above: Order Comment: No: D o not add to previous draw Performed By: #### 0 0121, 65885, 52601, 68025, 63880 #### [facility] [address] [place] [address], [place] Sodium [Moles/Vol] 135 mmol/L Low 136-145 [facility] Comment on above: Order Comment: No: D o not add to previous draw Performed By: #### 0 0121, 04961, 22294, 50993, 61780 #### [facility] [address] [place] [address], [place] Urea nitrogen [Mass/Vol] 18 mg/dL Normal 7-25 [facility] Comment on above: Order Comment: No: D o not add to previous draw Performed By: #### 0 0121, 38770, 32188, 14976, 42627 #### [facility] [address] [place] [address], [facility] CBC COMPLETE BLOOD COUNTon 0 - Erythrocyte distribution width (RBC) [Ratio] 12.9 % Normal 11.5-15.0 [facility] Comment on above: Order Comment: No: D o not add to previous draw Performed By: #### 0 0121, 95955, 99504, 16021, 24262 #### [facility] [address] [place] [address], [facility] Hematocrit (Bld) [Volume fraction] 50.6 % High 39.0-50.0 [facility] Comment on above: Order Comment: No: D o not add to previous draw Performed By: #### 0 0121, 48163, 13041, 69612, 76354 #### [facility] [address] [place] [address], [facility] Hemoglobin (Bld) [Mass/Vol] 16.1 g/dL Normal 13.0-17.0 [facility] Comment on above: Order Comment: No: D o not add to previous draw Performed By: #### 0 0121, 01670, 82506, 75369, 49517 #### [facility] [address] [place] [address], [facility] MCH (RBC) [Entitic mass] 28.6 pg Normal 27.0-33.0 [facility] Comment on above: Order Comment: No: D o not add to previous draw Performed By: #### 0 0121, 19740, 13660, 64889, 45719 #### [facility] [address] [place] [address], [facility] MCHC (RBC) [Mass/Vol] 31.8 g/dL Low 32.0-35.0 The [facility] Comment on above: Order Comment: No: D o not add to previous draw Performed By: #### 0 0121, 23639, 31692, 02417, 44258 #### [facility] [address] [place] [address], [facility] MCV (RBC) [Entitic vol] 90.0 fL Normal 82.0-98.0 [facility] Comment on above: Order Comment: No: D o not add to previous draw Performed By: #### 0 0121, 89404, 69833, 27105, 11117 #### [facility] [address] [place] [address], [facility] Nucleated RBC/100 WBC (Bld) [Ratio] 0 % Normal 0-0 [facility] Comment on above: Order Comment: No: D o not add to previous draw Performed By: #### 0 0121, 54260, 70558, 86212, 53565 #### [facility] [address] [place] [address], [facility] PLAT CNT 274 10*3/uL Normal 150-400 The [facility] Comment on above: Order Comment: No: D o not add to previous draw Performed By: #### 0 0121, 11941, 53839, 14505, 70407 #### [facility] [address] [place] [address], [facility] RBC (Bld) [#/Vol] 5.62 10*6/uL Normal 4.20-5.70 The [facility] Comment on above: Order Comment: No: D o not add to previous draw Performed By: #### 0 0121, 27485, 82009, 46273, 73017 #### [facility] [address] [place] [address], [place] WBC (Bld) [#/Vol] 9.65 10*3/uL Normal 4.00-10.60 [facility] Comment on above: Order Comment: No: D o not add to previous draw Performed By: #### 0 0121, 55186, 87986, 66397, 90539 #### [facility] [address] Cardiovascular Lab Reporton 03-17-2019 Cardiovascular Lab Report [facility] #: [id number] Department of Physician: Madan Parsons M.D. Division of Service Date: 03/16/2019 Cardiology Birthdate: 1965 Adult Cardiovascular Room #: 3AB [id number] [facility] 3000 [facility] Peninsulae. [place] [address] Cardiovascular Laboratory Report CLINICAL PRESENTATION: The patient is a 53-year-old male, who was transferred from the [facility], due to his symptoms of shortness of [...] guidance and a micropuncture access technique, a 6-Macedonian sheath was placed in the right internal jugular vein. A Clark catheter was then advanced under fluoroscopic hemodynamic monitor to the right atrium. Pressure was obtained in the right atrium, right ventricle, pulmonary artery, pulmonary capillary wedge position. Oxygen saturations drawn from the pulmonary artery and the Nanci cardiac output and cardiac index were calculated. The Clark catheter was then removed. Next, a 6-Macedonian Terumo Glidesheath slender was placed in the right radial artery. The radial anti-vasospasm cocktail of nitroglycerin 100 mcg was administered through the sheath. All catheter exchanges were made over the Operatix Torque guidewire. A 5-Macedonian Dallas catheter was used to engage the left [...] Day M.D. Date Trans: 03/17/2019 05:03 Jhoan/bessie [id number] cc: Titus Villegas M.D. [address] [place] [address] Normal [facility] MAGNESIUM BLOODon 03-17-2019 Magnesium [Mass/Vol] 2.2 mg/dL Normal 1.9-2.7 [facility] Comment on above: Order Comment: No: D o not add to previous draw Performed By: #### 0 0121, 39253, 18414, 75985, 67706 #### [facility] [address] [place], [place] [id number] [place] [address] UFH HEPARIN ASSAYon 03-17-20 19 UNFRACTIONATED HEPARIN 0.30 IU/mL Normal 0.30-0.70 [facility] Comment on above: Result Comment: [place] roxaban and Apixaban will interfere with the anti Xa assay used to monitor UFH and LMWH. Performed By: #### 0 0121, 98671, 52659, 84643, 91875 #### [facility] [address] [place] [address], [facility] APTTon 03-16-2019 aPTT Coag (Bld) [Time] 63.7 s High 25.0-35.0 [facility] Comment on above: Order Comment: No: [...] OF HEPARIN. Performed By: #### 0 0121, 05871, 83406, 25002, 57206 #### [facility] [address] [place] [address], [facility] aPTT Coag (Bld) [Time] 87.5 s Critically high 25.0-35.0 [facility] Comment on above: Order Comment: No: [...] READ BACK BY DAKOTAH MONTANO RN @ 1035 on 03-16-19 CLINICAL SIGNIFICANCE OF THE PTT RESULT IS QUESTIONABLE IN THE PRESENCE OF HEPARIN. Performed By: #### 0 0121, 10222, 33862, 16804, 74080 #### [facility] 3000 [facility]. [address] Cardiovascular Lab Reporton 03-16-2019 Cardiovascular Lab Report [facility] Patient Name: Paras [facility] Jeri MR #: [id number] Department of Physician: Ilan Danielson MD Division of Service Date: 03/16/2019 Cardiology Birthdate: 1965 Adult Cardiovascular Room #: 3AB [id number] [facility] [address] [place] [address] Cardiovascular Laboratory Report PROCEDURE: Transesophageal echocardiogram and cardioversion. INDICATION: Atrial fibrillation. PROCEDURE IN DETAIL: An informed consent was obtained from the patient after explaining indications, risks, benefits, and alternatives. The patient understood and agreed and signed the consent form. The patient was brought to the laborer pipeline and GERMAN/transesophageal echocardiogram was performed under conscious [...] Jhoan/Ilan Danielson MD Date Trans: 03/16/2019 07:28 P/bessei [id number] cc: Titus Villegas M.D. [address] [place] [address] Normal [facility] ERYTHROPOIETIN [id number] 03-16 ERYTHROPOIETIN 7 mU/mL Normal 4-27 The [facility] Comment on above: Order Comment: [...] may benefit from therapy with recombinant EPO ([id number]). Performed by [facility] [employer], [address] [place] [id number] [email or web address] [email or web address] MD - Lab. Director UFH HEPARIN ASSAYon 03-16-20 UNFRACTIONATED HEPARIN 0.43 IU/mL Normal 0.30-0.70 [facility] Comment on above: Result Comment: [place] roxaban and Apixaban will interfere with the anti Xa assay used to monitor UFH and LMWH. Performed By: #### 0 0121, 31466, 57378, 90812, 35016 #### [facility] [address] UNFRACTIONATED HEPARIN 0.53 IU/mL Normal 0.30-0.70 [facility] Comment on above: Result Comment: [place] roxaban and Apixaban will interfere with the anti Xa assay used to monitor UFH and LMWH. Performed By: #### 0 0121, 55025, 34680, 79553, 58787 #### [facility] [address] [facility] [address] APTTon 03-15-2019 aPTT Coag (Bld) [Time] 74.0 s Critically high 25.0-35.0 [facility] Comment on above: Order Comment: No: [...] AT 2127 Performed By: #### 0 0121, 77596, 25602, 25952, 03232 #### [facility] [address] aPTT Coag (Bld) [Time] 84.1 s Critically high 25.0-35.0 [facility] Comment on above: Order Comment: << [...] READ BACK BY DAXA MONTEJO RN @ 1303 CLINICAL SIGNIFICANCE OF THE PTT RESULT IS QUESTIONABLE IN THE PRESENCE OF HEPARIN. Performed By: #### 0 0121, 60619, 50942, 86204, 95851 #### [facility] [address] aPTT Coag (Bld) [Time] 59.2 s High 25.0-35.0 [facility] Comment on above: Order Comment: [...] THIS PURPOSE. Performed By: #### 0 0121, 55051, 05954, 73967, 51696 #### [facility] [address] BASIC METABOLIC PANELon 06- Calcium [Mass/Vol] 9.9 mg/dL Normal 8.6-10.3 [facility] Comment on above: Order Comment: << On admission If not done in ED>> No: Do not add to previous draw Performed By: #### 0 0121, 61986, 23713, 30572, 88735 #### [facility] [address] [place] [address], [facility] Chloride [Moles/Vol] 101 mmol/L Normal 98-107 [facility] Comment on above: Order Comment: << On admission If not done in ED>> No: Do not add to previous draw Performed By: #### 0 0121, 56165, 39757, 49190, 01735 #### [facility] [address] [place] [address], [place] CO2 [Moles/Vol] 25 mmol/L Normal 21-31 The [facility] Comment on above: Order Comment: << On admission If not done in ED>> No: Do not add to previous draw Performed By: #### 0 0121, 40384, 61844, 14561, 39292 #### [facility] [address] [place] [address], [place] Creatinine [Mass/Vol] 1.02 mg/dL Normal 0.70-1.30 [facility] Comment on above: Order Comment: << On admission If not done in ED>> No: Do not add to previous draw Performed By: #### 0 0121, 86638, 17801, 18310, 96443 #### [facility] [address] [place] [address], [place] GFR/1.73 sq M predicted among blacks MDRD (S/P/Bld) [Vol rate/Area] mL/min/{1.73_m2} Normal >60 [facility] Comment on above: Order Comment: << On admission If not done in ED>> No: Do not add to previous draw Performed By: #### 0 0121, 31152, 63455, 55992, 93061 #### [facility] [address] [place] [address], [place] GFR/1.73 sq M predicted among non-blacks MDRD (S/P/Bld) [Vol rate/Area] mL/min/{1.73_m2} Normal >60 [facility] Comment on above: Order Comment: << On admission If not done in ED>> No: Do not add to previous draw Performed By: #### 0 0121, 83176, 65694, 56175, 52546 #### [facility] [address] [place] [address], [facility] Glucose [Mass/Vol] 100 mg/dL Normal 70-100 The [facility] Comment on above: Order Comment: << On admission If not done in ED>> No: Do not add to previous draw Performed By: #### 0 0121, 07628, 93779, 09750, 25080 #### [facility] [address] [place] [address], [facility] Potassium [Moles/Vol] 4.0 mmol/L Normal 3.5-5.1 [facility] Comment on above: Order Comment: << On admission If not done in ED>> No: Do not add to previous draw Performed By: #### 0 0121, 40355, 47091, 66107, 46894 #### [facility] [address] [place] [address], [facility] Sodium [Moles/Vol] 135 mmol/L Low 136-145 [facility] Comment on above: Order Comment: << On admission If not done in ED>> No: Do not add to previous draw Performed By: #### 0 0121, 22861, 52971, 74985, 16145 #### [facility] [address] [place] [address], [facility] Urea nitrogen [Mass/Vol] 24 mg/dL Normal 7-25 [facility] Comment on above: Order Comment: << On admission If not done in ED>> No: Do not add to previous draw Performed By: #### 0 0121, 67769, 83764, 83902, 06178 #### [facility] [address] [place] [address], [facility] CBC COMPLETE BLOOD COUNTon 0 - Erythrocyte distribution width (RBC) [Ratio] 13.1 % Normal 11.5-15.0 [facility] Comment on above: Order Comment: << On admission If not done in ED>> No: Do not add to previous draw Performed By: #### 0 0121, 22665, 85535, 42361, 30318 #### [facility] [address] [place] [address], [facility] Hematocrit (Bld) [Volume fraction] 53.6 % High 39.0-50.0 [facility] Comment on above: Order Comment: << On admission If not done in ED>> No: Do not add to previous draw Performed By: #### 0 0121, 36433, 73792, 46965, 50500 #### [facility] [address] [place] [address], [facility] Hemoglobin (Bld) [Mass/Vol] 17.4 g/dL High 13.0-17.0 [facility] Comment on above: Order Comment: << On admission If not done in ED>> No: Do not add to previous draw Performed By: #### 0 0121, 06379, 83079, 07037, 31784 #### [facility] [address] [place] [address], [facility] MCH (RBC) [Entitic mass] 28.6 pg Normal 27.0-33.0 [facility] Comment on above: Order Comment: << On admission If not done in ED>> No: Do not add to previous draw Performed By: #### 0 0121, 82968, 65473, 79355, 88824 #### [facility] [address] [place] [id number], [facility] MCHC (RBC) [Mass/Vol] 32.5 g/dL Normal 32.0-35.0 [facility] Comment on above: Order Comment: << On admission If not done in ED>> No: Do not add to previous draw Performed By: #### 0 0121, 57801, 46730, 88832, 91858 #### [facility] [address] [place] [address], [facility] MCV (RBC) [Entitic vol] 88.0 fL Normal 82.0-98.0 [facility] Comment on above: Order Comment: << On admission If not done in ED>> No: Do not add to previous draw Performed By: #### 0 0121, 29572, 43937, 85751, 88409 #### [facility] [address] [place] [address], [facility] Nucleated RBC/100 WBC (Bld) [Ratio] 0 % Normal 0-0 [facility] Comment on above: Order Comment: << On admission If not done in ED>> No: Do not add to previous draw Performed By: #### 0 0121, 63122, 25454, 64862, 81862 #### [facility] [address] [place] [address], [facility] PLAT CNT 286 10*3/uL Normal 150-400 The [facility] Comment on above: Order Comment: << On admission If not done in ED>> No: Do not add to previous draw Performed By: #### 0 0121, 71469, 20384, 24648, 22719 #### [facility] [address] [place] [address], [facility] RBC (Bld) [#/Vol] 6.09 10*6/uL High 4.20-5.70 [facility] Comment on above: Order Comment: << On admission If not done in ED>> No: Do not add to previous draw Performed By: #### 0 0121, 75438, 49049, 29237, 22966 #### [facility] [address] [place] [address], [place] WBC (Bld) [#/Vol] 10.49 10*3/uL Normal 4.00-10.60 [facility] Comment on above: Order Comment: << On admission If not done in ED>> No: Do not add to previous draw Performed By: #### 0 0121, 24897, 78285, 86771, 99500 #### [facility] [address] [place] [address], [facility] LIPID PROFILEon 03-15-2019 Cholesterol [Mass/Vol] 140 mg/dL Normal 120-200 [facility] Comment on above: Order Comment: << On admission If not done in ED>> No: Do not add to previous draw Result Comment: CHOL ESTEROL REFERENCE RANGE: 20 YEARS AND OLDER CARDIOVASCULAR RISK Less than 200 mg/dl Low Risk 200 to 239 mg/dl Borderline Risk 240 mg/dl and greater High Risk Performed By: #### 0 0121, 41154, 64845, 45952, 49276 #### [facility] [address] [place] [address], [facility] Cholesterol in HDL [Mass/Vol] 38 mg/dL Normal 23-92 [facility] Comment on above: Order Comment: << [...] High Risk Performed By: #### 0 0121, 70267, 00686, 93235, 81765 #### [facility] [address] [place] [address], [facility] Cholesterol in LDL [Mass/Vol] 88 mg/dL Normal 0-130 [facility] Comment on above: Order Comment: << On admission If not done in ED>> No: Do not add to previous draw Result Comment: LDL IS A CALCULATION LDL IS ONLY VALID IF THE TRIG IS LESS THAN 400. Performed By: #### 0 0121, 39947, 77054, 19053, 45090 #### [facility] [address] [place] [address], [facility] Cholesterol.total/Ch olesterol in HDL [Mass ratio] 3.7 {ratio} Normal .0-4.5 [facility] Comment on above: Order Comment: << On admission If not done in ED>> No: Do not add to previous draw Performed By: #### 0 0121, 78380, 03589, 08212, 75761 #### [facility] [address] NON-HDL CHOLESTEROL 102 mg/dL Normal [facility] Comment on above: Order Comment: << On admission If not done in ED>> No: Do not add to previous draw Performed By: #### 0 0121, 39502, 50798, 20222, 06282 #### [facility] [address] [facility]. [address] Triglyceride [Mass/Vol] 70 mg/dL Normal 40-149 [facility] Comment on above: Order Comment: << On admission If not done in ED>> No: Do not add to previous draw Result Comment: TRIG LYCERIDE REFERENCE RANGE: 20 YEARS AND OLDER CARDIOVASCULAR RISK LESS THAN 150 mg/dl LOW RISK 150 TO 199 mg/dl BORDERLINE RISK 200 mg/dl AND GREATER HIGH RISK Performed By: #### 0 0121, 03036, 13049, 11784, 31687 #### [facility] 3000 [facility]. [address] VLDL CHOL 14 mg/dL Normal 0-40 [facility] Comment on above: Order Comment: << On admission If not done in ED>> No: Do not add to previous draw Performed By: #### 0 0121, 12099, 92010, 74462, 94096 #### [facility] [address] [facility]. [address] TROPONIN-Ion 03-15-2019 Troponin I.cardiac [Mass/Vol] 0.01 ng/mL Normal 0.00-0.04 [facility] Comment on above: Order Comment: << On admission If not done in ED>> No: Do not add to previous draw Result Comment: REFE RENCE RANGES: 0.00 - 0.04 ng/ml NORMAL 0.05 - 0.50 ng/ml INDETERMINATE > 0.50 ng/ml CONSISTENT WITH AN M.I. Performed By: #### 0 0121, 30808, 83667, 60707, 17526 #### [facility] [address] [place] [address], [facility] UFH HEPARIN ASSAYon 03-15-20 19 UNFRACTIONATED HEPARIN 0.62 IU/mL Normal 0.30-0.70 [facility] Comment on above: Order Comment: No: D o not add to previous draw Result Comment: [place] roxaban and Apixaban will interfere with the anti Xa assay used to monitor UFH and LMWH. Performed By: #### 0 0121, 05617, 04847, 64354, 11702 #### [facility] [address] [place] [address], [facility] UNFRACTIONATED HEPARIN 0.92 IU/mL Critically high 0.30-0.70 [facility] Comment on above: Result Comment: [place] roxaban and Apixaban will interfere with the anti Xa assay used to monitor UFH and LMWH. RESULTS CHECKED AND CALLED. ACCURATELY READ BACK BY DAXA MONTEJO RN @ 1309 Performed By: #### 0 0121, 73619, 89863, 29681, 04081 #### [facility] [address] [place] [address], [facility] UNFRACTIONATED HEPARIN 0.90 IU/mL Critically high 0.30-0.70 [facility] Comment on above: Result Comment: [place] roxaban and Apixaban will interfere with the anti Xa assay used to monitor UFH and LMWH. RESULTS CHECKED AND CALLED. ACCURATELY READ BACK BY DAXA MONTEJO RN @ 0822 Performed By: #### 0 0121, 24673, 82493, 29120, 24926 #### [facility] [address] [place] [address], [facility] APTTon 03-14-2019 aPTT Coag (Bld) [Time] 32.8 s Normal 25.0-35.0 [facility] Comment on above: Order Comment: No: [...] PURPOSE. Performed By: #### 5 7307 #### [address] BNP (B-TYPE NATRIURETIC PEPT PACHECO)on 03-14-2019 Natriuretic peptide B (Bld) [Mass/Vol] 112 pg/mL High 0-100 [facility] Comment on above: Order Comment: If no t done in ED No: Do not add to previous draw Result Comment: Give n the appropriate clinical setting a BNP result of >100 pg/mL indicates congestive heart failure. Performed By: #### 8 5123, 47172 #### [address] CBC W/DIFFon 03-14-2019 ABS BASOPHILS 0.1 10*3/uL Normal 0.0-0.2 [facility] Comment on above: Order Comment: If no t done in ED No: Do not add to previous draw Performed By: #### 5 0103 #### [facility] [address] ABS IMM GRANS 0.1 10*3/uL Normal 0.0-0.2 [facility] Comment on above: Order Comment: If no t done in ED No: Do not add to previous draw Performed By: #### 5 0103 #### [facility] [address] ABS NEUTROPHILS 7.1 10*3/uL Normal 1.6-7.6 [facility] Comment on above: Order Comment: If no t done in ED No: Do not add to previous draw Performed By: #### 5 0103 #### [facility] [address] [place] [address], [facility] Basophils/100 WBC (Bld) 1.0 % Normal 0.0-1.0 [facility] Comment on above: Order Comment: If no t done in ED No: Do not add to previous draw Performed By: #### 5 0103 #### [facility] [address] [place] [address], [facility] Eosinophils (Bld) [#/Vol] 0.3 10*3/uL Normal 0.0-0.5 [facility] Comment on above: Order Comment: If no t done in ED No: Do not add to previous draw Performed By: #### 5 0103 #### [facility] [address] [place] [id number], [facility] Eosinophils/100 WBC (Bld) 2.8 % Normal 0.0-6.0 [facility] Comment on above: Order Comment: If no t done in ED No: Do not add to previous draw Performed By: #### 5 0103 #### [facility] [address] [place] [address], [facility] Erythrocyte distribution width (RBC) [Ratio] 13.2 % Normal 11.5-15.0 [facility] Comment on above: Order Comment: If no t done in ED No: Do not add to previous draw Performed By: #### 5 0103 #### [facility] [address] [place] [address], [facility] Hematocrit (Bld) [Volume fraction] 53.8 % High 39.0-50.0 [facility] Comment on above: Order Comment: If no t done in ED No: Do not add to previous draw Performed By: #### 5 0103 #### [facility] [address] [place] [address], [facility] Hemoglobin (Bld) [Mass/Vol] 17.2 g/dL High 13.0-17.0 [facility] Comment on above: Order Comment: If no t done in ED No: Do not add to previous draw Performed By: #### 5 0103 #### [facility] [address] IMMATURE GRANS 0.5 % Normal 0.0-1.0 [facility] Comment on above: Order Comment: If no t done in ED No: Do not add to previous draw Performed By: #### 5 0103 #### [facility] [address] [place] [address], [facility] Lymphocytes (Bld) [#/Vol] 2.4 10*3/uL Normal 1.2-4.0 [facility] Comment on above: Order Comment: If no t done in ED No: Do not add to previous draw Performed By: #### 5 0103 #### [facility] [address] [facility] [address], [facility] [place] Lymphocytes/100 WBC (Bld) 21.0 % Normal 20.0-45.0 [facility] Comment on above: Order Comment: If no t done in ED No: Do not add to previous draw Performed By: #### 5 0103 #### [facility] [address] [place] [address], [facility] MCH (RBC) [Entitic mass] 28.9 pg Normal 27.0-33.0 [facility] Comment on above: Order Comment: If no t done in ED No: Do not add to previous draw Performed By: #### 5 0103 #### [facility] [address] [facility] [address], [facility] MCHC (RBC) [Mass/Vol] 32.0 g/dL Normal 32.0-35.0 [facility] Comment on above: Order Comment: If no t done in ED No: Do not add to previous draw Performed By: #### 5 0103 #### [facility] [address] [place] [address], [facility] [place] MCV (RBC) [Entitic vol] 90.4 fL Normal 82.0-98.0 [facility] Comment on above: Order Comment: If no t done in ED No: Do not add to previous draw Performed By: #### 5 0103 #### [facility] [address] [place] [address], [facility] Monocytes (Bld) [#/Vol] 1.4 10*3/uL High 0.1-1.0 [facility] Comment on above: Order Comment: If no t done in ED No: Do not add to previous draw Performed By: #### 5 0103 #### [facility] [address] [place] [address], [facility] [place] MONOS 12.2 % High 5.0-12.0 [facility] Comment on above: Order Comment: If no t done in ED No: Do not add to previous draw Performed By: #### 5 0103 #### [facility] [address] [place] [address], [facility] [place] Neutrophils/100 WBC (Bld) 62.5 % Normal 40.0-72.0 [facility] Comment on above: Order Comment: If no t done in ED No: Do not add to previous draw Performed By: #### 5 0103 #### [facility] [address] [facility] [place] [address], [facility] [place] Nucleated RBC/100 WBC (Bld) [Ratio] 0 % Normal 0-0 [facility] Comment on above: Order Comment: If no t done in ED No: Do not add to previous draw Performed By: #### 5 0103 #### [facility] [address] [facility] [place] [address], [facility] [place] PLAT CNT 321 10*3/uL Normal 150-400 The [facility] Comment on above: Order Comment: If no t done in ED No: Do not add to previous draw Performed By: #### 5 0103 #### [facility] [address] [facility] [place] [address], [facility] [place] RBC (Bld) [#/Vol] 5.95 10*6/uL High 4.20-5.70 [facility] Comment on above: Order Comment: If no t done in ED No: Do not add to previous draw Performed By: #### 5 0103 #### [facility] [address] [place] [address], [facility] [place] WBC (Bld) [#/Vol] 11.32 10*3/uL High 4.00-10.60 [facility] Comment on above: Order Comment: If no t done in ED No: Do not add to previous draw Performed By: #### 5 0103 #### [facility] [address] [place] [address], [facility] [place] COMP METABOLIC PANELon 03-14 Albumin [Mass/Vol] 4.3 g/dL Normal 3.5-5.7 [facility] Comment on above: Order Comment: << On admission If not done in ED>> No: Do not add to previous draw Performed By: #### 0 0121, 80281, 35547, 03562, 24934 #### [facility] [address] [facility] ALKALINE PHOSPH 59 IU/L Normal 34-104 [facility] Comment on above: Order Comment: << On admission If not done in ED>> No: Do not add to previous draw Performed By: #### 0 0121, 69869, 92683, 60717, 55250 #### [facility] [address] ALT [Catalytic activity/Vol] 21 U/L Normal 7-52 [facility] Comment on above: Order Comment: << On admission If not done in ED>> No: Do not add to previous draw Performed By: #### 0 0121, 08337, 22442, 58644, 76413 #### [facility] [address] [place] [address], [facility] [place] AST [Catalytic activity/Vol] 26 U/L Normal 13-39 [facility] Comment on above: Order Comment: << On admission If not done in ED>> No: Do not add to previous draw Performed By: #### 0 0121, 86128, 37983, 75330, 94732 #### [facility] [address] [place] [address], [place] Bilirubin [Mass/Vol] 1.1 mg/dL High 0.3-1.0 [facility] Comment on above: Order Comment: << On admission If not done in ED>> No: Do not add to previous draw Performed By: #### 0 0121, 38586, 61408, 89404, 49263 #### [facility] [address] [place] [address], [place] Calcium [Mass/Vol] 10.5 mg/dL High 8.6-10.3 [facility] Comment on above: Order Comment: << On admission If not done in ED>> No: Do not add to previous draw Performed By: #### 0 0121, 62067, 91026, 92237, 27483 #### [facility] [address] [place] [address], [place] Chloride [Moles/Vol] 98 mmol/L Normal 98-107 [facility] Comment on above: Order Comment: << On admission If not done in ED>> No: Do not add to previous draw Performed By: #### 0 0121, 03769, 90473, 07692, 33364 #### [facility] [address] [place] [address], [place] CO2 [Moles/Vol] 31 mmol/L Normal 21-31 [facility] Comment on above: Order Comment: << On admission If not done in ED>> No: Do not add to previous draw Performed By: #### 0 0121, 73350, 70887, 82700, 12464 #### [facility] [address] [place] [address], [place] Creatinine [Mass/Vol] 1.36 mg/dL High 0.70-1.30 [facility] Comment on above: Order Comment: << On admission If not done in ED>> No: Do not add to previous draw Performed By: #### 0 0121, 07718, 32605, 99058, 55898 #### [facility] [address] [place] [address], [facility] [place] GFR/1.73 sq M predicted among blacks MDRD (S/P/Bld) [Vol rate/Area] mL/min/{1.73_m2} Normal >60 [facility] Comment on above: Order Comment: << On admission If not done in ED>> No: Do not add to previous draw Performed By: #### 0 0121, 30231, 01680, 58100, 14846 #### [facility] [address] [place] [address], [facility] [place] [facility] GFR/1.73 sq M predicted among non-blacks MDRD (S/P/Bld) [Vol rate/Area] 55 ml/min/1.73sq m Abnormal >60 The [facility] Comment on above: Order Comment: << On admission If not done in ED>> No: Do not add to previous draw Performed By: #### 0 0121, 03651, 11173, 59312, 70879 #### [facility] [address] [place] [address], [facility] [place] [facility] Glucose [Mass/Vol] 81 mg/dL Normal 70-100 [facility] Comment on above: Order Comment: << On admission If not done in ED>> No: Do not add to previous draw Performed By: #### 0 0121, 13556, 11178, 12066, 32955 #### [facility] [address] [place] [address], [place] Potassium [Moles/Vol] 3.8 mmol/L Normal 3.5-5.1 [facility] Comment on above: Order Comment: << On admission If not done in ED>> No: Do not add to previous draw Performed By: #### 0 0121, 81073, 95625, 33578, 46929 #### [facility] [address] [place] [address], [facility] [place] [facility] Protein [Mass/Vol] 7.4 g/dL Normal 6.0-8.3 [facility] Comment on above: Order Comment: << On admission If not done in ED>> No: Do not add to previous draw Performed By: #### 0 0121, 01660, 41923, 20291, 85170 #### [facility] [address] [place] [address], [facility] [place] Sodium [Moles/Vol] 138 mmol/L Normal 136-145 [facility] Comment on above: Order Comment: << On admission If not done in ED>> No: Do not add to previous draw Performed By: #### 0 0121, 95177, 83398, 66655, 44820 #### [facility] [address] [place] [address], [facility] [place] Urea nitrogen [Mass/Vol] 26 mg/dL High 7-25 [facility] Comment on above: Order Comment: << On admission If not done in ED>> No: Do not add to previous draw Performed By: #### 0 0121, 43588, 95139, 68603, 18840 #### [facility] [address] FREE T4on 03-14-2019 Free T4 [Mass/Vol] 1.18 ng/dL Normal 0.71-1.85 [facility] Comment on above: Order Comment: If no t done in ED No: Do not add to previous draw Performed By: #### 0 0121, 44270, 30729, 04085, 91583 #### [facility] [address] [place] [address], [facility] [place] [facility] HEMOGLOBIN A1Con 03-14-2019 HbA1c (Bld) [Mass fraction] 103 mg/dL Normal 70-126 [facility] Comment on above: Order Comment: If no t done in ED No: Do not add to previous draw Performed By: #### 8 5123, 36024 #### [facility] [address] HbA1c (Bld) [Mass fraction] 5.2 % Normal 4.0-6.0 [facility] Comment on above: Order Comment: If no t done in ED No: Do not add to previous draw Performed By: #### 8 5123, 62267 #### [facility] [address] History and Physicalon 03-14 History and Physical MR#: [id number] [facility] Pt. Name: Argelia Crain Admitted: 03/14/2019 Date of : 1965 Attending Physician: Dimitry Lyles M.D. Room #: [facility] [id number] Discharge Date: HISTORY AND PHYSICAL CHIEF COMPLAINT: Atrial fibrillation and bilateral lower extremity swelling. HISTORY OF PRESENT ILLNESS: Mr. Whitt is a 53-year-old male with the past medical history of depression and GERD, who was transferred from [facility] for atrial fibrillation and congestive heart failure. The patient states that he has been complaining of progressively worsening bilateral lower extremity swelling for the last four months. The patient states that he has never had bilateral lower extremity swelling like this in the past. The patient [facility] and was sent to [facility]. At [facility], EKG showed atrial fibrillation with RVR. Chest x-ray showed bilateral pulmonary venous congestion. The patient was admitted for one day at [facility] and was started on metoprolol 75 mg twice a day and Eliquis. The patient was also diuresed with Lasix and put out around 2.8 L of urine. An echocardiogram was done at [facility], which showed a reduced ejection fraction, but [...] drug use. 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 FAMILY [...] he received metoprolol 75 mg b.i.d. at [facility]. His heart rate is currently in the 80s to 90s. Will start him on metoprolol 12.5 mg BID. The patient received a dose of Eliquis today this morning at [facility], will discontinue Eliquis and start him on heparin drip in the evening around 10 p.m. His TSH and T4 were normal at [facility]. If the patient does not convert back to normal sinus rhythm, the patient will have GERMAN/cardioversion on Saturday. 2. Acute systolic CHF exacerbation: An echocardiogram at [facility] showed reduced ejection fraction. The patient was diuresed with Lasix 40 mg IV twice a day at [place] and diuresed around 2.8 L. Will start [...] P/Dimitry Lyles M.D. Date Trans: 03/14/2019 01:33 P/mmo [id number] Normal [facility] MAGNESIUM BLOODon 03-14-2019 Magnesium [Mass/Vol] 2.4 mg/dL Normal 1.9-2.7 [facility] Comment on above: Order Comment: << ON ADMISSION If not done in ED>> No: Do not add to previous draw Performed By: #### 0 0121, 98362, 26626, 99018, 518[address] #### [place] [address], [facility] [place] PORTABLE CHEST 1 VIEWon 02-28 PORTABLE CHEST 1 VIEW [facility] Department of Radiology [address] [place] [id number] ======== Patient Name: ARGELIA CRAIN : 1965 Sex: M Age: Race: NA Pt. Location: [id number] Patient Status: I Ordered Date: 03/14/2019 10:35:00 [...] findings. Electronically signed by:Yenni Osuna. Transcribed by: [email or web address], User Resident: KAREEM LIAO Electronically Signed by: YENNI OSUNA @ 03/14/2019 04:53 PM I personally read this/these film(s) with this resident Normal [facility] Comment on above: Order Comment: R/O P ulmonary Edema TROPONIN-Ion 03-14-2019 Troponin I.cardiac [Mass/Vol] 0.00 ng/mL Normal 0.00-0.04 [facility] Comment on above: Order Comment: << On admission If not done in ED>> No: Do not add to previous draw Result Comment: REFE RENCE RANGES: 0.00 - 0.14 ng/ml NEGATIVE 0.15 - 0.25 ng/ml INDETERMINATE > 0.25 ng/ml INDICATIVE OF AN M.I. Performed By: #### 0 0121, 47066, 06224, 71549, 04921 #### [facility] [address] Troponin I.cardiac [Mass/Vol] 0.01 ng/mL Normal 0.00-0.04 [facility] Comment on above: Order Comment: No: D o not add to previous draw Result Comment: REFE RENCE RANGES: 0.00 - 0.04 ng/ml NORMAL 0.05 - 0.50 ng/ml INDETERMINATE > 0.50 ng/ml CONSISTENT WITH AN M.I. Performed By: #### 0 0121, 01932, 61254, 06767, 18785 #### [facility] [address] [place] [address], [facility] [place] TSH3on 03-14-2019 TSH 3RD GENERATION 2.05 uIU/mL Normal 0.34-5.60 [facility] Comment on above: Order Comment: TSH3 with Reflex canceled. TSH3 ordered. Performed By: #### 0 0121, 33278, 89320, 86460, 75133 #### [facility] [address] [place] [address], [facility] [place] CBC With Platelet No Differe ntialon 03-04-2018 Erythrocyte distribution width Auto Ratio (RBC) 13.9 % Normal 11.5-14.5 [facility] Erythrocytes (RBC) 5.34 10*6/uL Normal 4.70-6.10 [facility] Hematocrit (HCT) 49.8 % Normal 42.0-52.0 [facility] Hemoglobin mass conc (Bld) 16.4 g/dL Normal 14.0-18.0 [facility] MCH 30.8 pg Normal 27.0-31.3 [facility] MCHC mass conc (RBC) 33.0 % Normal 33.0-37.0 [facility] MCV 93.3 fL Normal 80.0-100.0 [facility] Platelets 281 10*3/uL Normal 130-400 [facility] WBC (Leukocytes) 9.3 10*3/uL Normal 4.8-10.8 [facility] Comprehensive Metabolic Pane gian 03-04-2018 Alanine aminotransferase (ALT) 20 U/L Normal 0-41 [facility] Albumin 4.6 g/dL Normal 3.9-4.9 [facility] Alkaline phosphatase (ALP) 56 U/L Normal 35-104 [facility] Anion gap 18 mmol/L Critically high 7-13 [facility] Aspartate aminotransferase (AST) 18 U/L Normal 0-40 [facility] Bilirubin (total) 0.7 mg/dL Normal 0.0-1.2 [facility] Calcium 9.4 mg/dL Normal 8.6-10.2 [facility] Chloride 103 mmol/L Normal 98-107 [facility] CO2 20 mmol/L Low 22-29 [facility] Creatinine 0.78 mg/dL Normal 0.70-1.20 [facility] eGFR (black) mL/min/{1.73_m2} Normal >60 [facility] Comment on above: Result Comment: >60 mL/min/1.73m2 EGFR, calc. for ages 18 and older using theMDRD formula (not corrected for weight), is valid for stablerenal function. eGFR (MDRD) mL/min/{1.73_m2} Normal >60 [facility] Comment on above: Result Comment: >60 mL/min/1.73m2 EGFR, calc. for ages 18 and older using theMDRD formula (not corrected for weight), is valid for stablerenal function. Globulin 2.7 g/dL Normal 2.3-3.5 [facility] Glucose mass conc 91 mg/dL Normal 74-109 [facility] Potassium molar conc 4.1 mmol/L Normal 3.5-5.1 [facility] Protein 7.3 g/dL Normal 6.4-8.1 [facility] Sodium 141 mmol/L Normal 132-144 [facility] Urea nitrogen 15 mg/dL Normal 6-20 [facility] Hemoglobin A1con 03-04-2018 Hemoglobin A1c/Hemoglobin.total mass fraction (Bld) 5.5 % Normal 4.8-5.9 [facility] Lipid Panelon 03-04-2018 Cholesterol 167 mg/dL Normal 0-199 [facility] Comment on above: Result Comment: ATP III Cholesterol classification is Desirable. HDL Cholesterol 47 mg/dL Normal 40-59 [facility] Comment on above: Result Comment: ATP III HDL Cholesterol Classification is Desirable.Expected Values:Males: >55 = No Risk 35-55 = Moderate Risk <35 = High RiskFemales: >65 = No Risk 45-65 = Moderate Risk <45 = High RiskNCEP Guidelines: Third Report January 2001>59 = negative risk factor for CHD<40 = major risk factor for CHD LDL Cholesterol 99 mg/dL Normal 0-129 [facility] Comment on above: Result Comment: ATP III LDL Classification is Optimal. Triglyceride 105 mg/dL Normal 0-200 [facility] Comment on above: Result Comment: ATP III Triglycerides Classification is Normal. Prostate Specific Ag Screeno n 03-04-2018 Prostate Specific Ag Screen 2.25 ng/mL Normal 0.00-3.89 [facility] Comment on above: Result Comment: When the Total PSA is between 3.00 and 10.00 ng/mL, considerrequesting a Free PSA to aid in diagnosis. TSH w/out Reflexon 8 Thyroid stimulating hormone (TSH) 2.550 uIU/mL Normal 0.270-4.20 [facility] Thyroxine Freeon 03-04-2018 Thyroxine Free 1.54 ng/dL Normal 0.93-1.70 [facility] Vital Signs Date Time Vital Sign Value Performing Clinician Abbi paulson 03-21-2019 15:41-0400 Respiratory rate 16 /min TITUS VILLEGAS [facility] Comment on above: Performed By: #### 0 0121, 67805, 43678, 90561, 33765 #### [facility] [address] [place] [address], [facility] 03-21-2019 06:18-0400 Respiratory rate 16 /min TITUS HOY [facility] Comment on above: Performed By: #### 0 0121, 39204, 72530, 52717, 57198 #### [facility] [address] [place] [address], [facility] [place] 03-20-2019 15:18-0400 Respiratory rate 16 /min TITUS HOY [facility] Comment on above: Performed By: #### 0 0121, 64645, 35753, 78182, 47113 #### [facility] [address] [place] [address], [facility] 03-20-2019 06:10-0400 Respiratory rate 16 /min TITUS HOY [facility] Comment on above: Performed By: #### 0 0121, 72795, 83029, 94154, 79626 #### [facility] [address] [place] [address], [facility] 03-20-2019 01:22-0400 Respiratory rate 16 /min TITUS HOY [facility] Comment on above: Performed By: #### 0 0121, 69632, 16342, 98855, 57940 #### [facility] [address] [place] [address], [facility] 03-19-2019 22:02-0400 Respiratory rate 16 /min TITUS HOY [facility] Comment on above: Performed By: #### 5 7307 #### [facility] [address] [place] [address], [facility] 03-19-2019 20:06-0400 Respiratory rate 16 /min TITUS HOY [facility] Comment on above: Performed By: #### 8 4511, 71286 ####[facility] [place] [address], [facility] 03-19-2019 18:48-0400 Respiratory rate 16 /min TITUS VILLEGAS [facility] Comment on above: Order Comment: R/O P ulmonary Edema Performed By: #### 8 4511, 57554 ####[facility] [place] [address], [facility] Encounters Encounter Date Encounter Type Care Provider Facility Start: 06-26-2024 End: 06-26-2024 ambulatory [facility] Start: 05-05-2024 Evaluation and management of inpatient [facility] Start: 05-05-2024 End: 05-06-2024 Evaluation and management of inpatient [facility] Start: 03-26-2024 End: 03-26-2024 ambulatory [facility] Start: 02-28-2024 End: 02-28-2024 ambulatory [facility] Start: 01-24-2024 End: 01-24-2024 ambulatory [facility] Start: 10-23-2023 End: 10-23-2023 ambulatory [facility] Start: 02-05-2023 End: 02-06-[address] VIET [...] abnormal findings DR TITUS VILLEGAS . [facility] Start: 04-05-2022 End: 04-06-[address] TITUS VILLEGAS . Facility:[facility] Start: 04-05-2022 End: 04-06-2022 Encounter for general adult medical examination without abnormal findings DR TITUS VILLEGAS . Facility:[facility] Start: 03-08-2022 End: 03-09-[address] MELIDA CUELLAR Facility:[facility] Start: 05-12-2019 End: 05-13-2019 Patient encounter procedure ILAN DANIELSON Facility:[facility] Start: 03-14-2019 End: 03-27-2019 Evaluation and management of inpatient TITUS VILLEGAS Facility:[facility] Procedures Date Procedure Procedure Detail Performing Clinician Start: 04-05-[address] MELIDA CUELLAR Comment on above: Performed By: #### P [facility] ####[facility] [address] [place] [id number]. Leonie Beckham Start: 03-19-2019 DESTRUCTION OF CONDU [...] RESPIRATORY VENTILAT ION, 24-96 CONSECUTIVE HOURS MAY Jhoan MONA Start: 03-19-[address] WITH SYNTH SUB, OPEN APPROACH TIMBO MASROOR Start: 03-19-2019 ULTRASONOGRAPHY OF R IGHT AND LEFT HEART, [facility] Start: 03-18-2019 Antibody screen TITUS VILLEGAS Comment on above: Performed By: #### 0 0121, 18108, 92067, 53766, 48027 #### [facility] [address] [place] [address], [facility] Start: 03-16-2019 MEASURE CARDIAC SAMP L \T\ PRESSURE, BILATERAL, PERC KRYS DAY Start: 03-16-2019 FLUOROSCOPY OF LEFT HEART USING OTHER CONTRAST KRYS ADY Start: 03-16-2019 FLUOROSCOPY OF MULTI PLE CORONARY ARTERIES USING OTH CONTRAST KRYS DAY Start: 03-16-2019 Zoroastrianism of Cardi ac Rhythm, Single ILAN DANIELSON Payers Date Payer Category Payer Unknown [id number] 2.16.8 [id number] 1965 Unknown [id number] 2.16.8 [id number] 1965 Unknown [id number] 2.16.84 [id number] 1965 Unknown [id number] 2.16.84 [id number] 1965 Unknown [id number] 2.16.84 [id number] 1965 Unknown [id number] 2.16.84 [id number] 1965 Unknown [id number] 2.16.84 [id number] 1965 Unknown [id number] 2.16.84 [id number] 1965 Unknown [id number] 2.16.84 [id number] 1965 Unknown [id number] 2.16.84 [id number] 1965 Unknown [id number] 2.16.84 [id number] 1965 Unknown [id number] 2.16.84 0.1.702251.3.579.2.593 1964 Unknown [id number] 2.16.84 0.1.143154.3.579.2.593 1964 Unknown [id number] 2.16.84 0.1.183509.3.579.2.593 1964 Unknown [id number] 2.16.84 0.1.489812.3.579.2.593 1964 Unknown [id number] 2.16.84 0.1.712103.3.579.2.593 1964 Unknown [id number] 2.16.84 0.1.866609.3.579.2.593 1964 Unknown [id number] 2.16.84 0.1.428638.3.579.2.593 1960 Self-pay 1960 Unknown [id number] Clinical Notes 11-29-2020 to 06-26-2024 Note Date & Type Note Facility 06-26-2024 Note [place] [facility] Subjective Tracie Crain is a 59 y.o. year old male patient being seen for follow up cath performed last month. Patient Active Problem List Diagnosis Right-sided heart [...] Pulmonary hypertension (CMS/HCC) Nonrheumatic tricuspid valve regurgitation Chronic right-sided congestive heart failure (CMS/HCC) ASD (atrial septal defect) Abnormal result of cardiovascular function study, unspecified Cardiomegaly Family History Problem Relation Name Age of [...] When compared with ECG of 21-MAR-2019 20:42, RI interval has decreased, Vent. rate has increased [...] arteries. 2. Elevated filling pressures consistent with (more content not included)... [facility] 05-06-2024 Note 05/06/24 1003 Admission Assessment Questions Verify insurance with patient Yes Do you understand medical disease or what brought you into the hospital? Yes Who is your current PCP? Titus Villegas MD Can I schedule a follow up appointment for you at the time of discharge? No (patient stated he will schedule it) Do you understand why you are taking your current medications? Yes Are you taking your medications as prescribed? Yes Did patient provide teach back? No Pharmacy Bedside Delivery Status Interested Does the patient have a child support case officer assigned to them through their insurance? No Living Arrangement (Current/Prior to Hospitalization) Private residence (live his , 6- 7 steps, tri level) Does the patient have history of HHC or SNF? No Assistive Device Other (Comment) (cpap) Patient's goal for discharge home Was patient reminded that goal for discharge is 11am? Yes Does the patient have transportation at discharge? Yes Type of Residence Private residence Is PT/OT appropriate? No Is PT/OT ordered? No Is SW consult appropriate? No Is SW consult ordered? No Do you understand the benefits of MyChart? Yes Were you able to send link and activate MyChart? MyChart already active [facility] 05-05-2024 Note Interventional cardi ology update Patient's remains with a 4 Macedonian arterial sheath in right SHOESHINER. ACT has been trending down last checked results with at 154. Patient evaluated bedside and arterial sheath removed with manual pressure for hemostasis. No hematoma formation. Patient tolerated well. 1 mg of Versed and 25 mcg of fentanyl administered IV. Recommend strict bedrest until 3 AM. Isaura Lee MD PGY-7 Interventional Construction Engineer [facility] 05-05-2024 Note Patient: Tracie kaminski Procedure Information Date/Time: 05/05/24 1330 Procedures: Atrial septal defect closure - PC APPROVED 05/05 Right heart cath Location: [facility] / [facility] (Cath) Providers: Viet Salas MD Clinical information reviewed: Tobacco Allergies Meds Med Hx Surg Hx Fam Hx Physical Exam Airway Mallampati: II TM distance: >3 FB Neck ROM: full Cardiovascular Rhythm: regular Rate: normal Dental Pulmonary Abdominal Anesthesia Plan ASA 3 other (Conscious sedation.) Anesthetic plan and risks discussed with patient. Use of blood products discussed with patient who consented to blood products. Additional Equipment Requests [facility] 03-26-2024 Note [facility] Subjective Tracie Crain is a [...] When compared with ECG of 21-MAR-2019 20:42, RI interval has decreased, Vent. rate has increased [...] in follow up. (more content not included)... [facility] 02-28-2024 Note Patient: Tracie kaminski Procedure Information Date/Time: 02/28/24 1300 Procedure: Right heart cath Location: [facility] / [facility] (Cath) Providers: Viet Salas MD Clinical information reviewed: Allergies Meds Physical Exam Airway Mallampati: II TM distance: >3 FB Neck ROM: full Cardiovascular Rhythm: regular Rate: normal Dental Pulmonary Abdominal Anesthesia Plan ASA 3 other (Conscious sedation.) Anesthetic plan and risks discussed with patient. Use of blood products discussed with patient who consented to blood products. Additional Equipment Requests [facility] 02-28-2024 Note Brief procedure note : GERMAN [...] Full report to follow Dr. Brook Arenas [facility] 02-28-2024 Note Patient: Tracie kaminski Procedure Information Date/Time: 02/28/24 1300 Procedure: GERMAN Location: [facility] / [facility] (Cath) Providers: Brook Arenas Clinical information reviewed: Allergies Meds Physical Exam Airway Mallampati: II Neck ROM: full Cardiovascular Rhythm: regular Rate: normal Dental Pulmonary Breath sounds clear to auscultation Abdominal - normal exam Anesthesia Plan ASA 3 CSE Anesthetic plan and risks discussed with patient. [facility] 01-24-2024 Note [facility] Subjective Tracie Crain is a [...] When compared with ECG of 21-MAR-2019 20:42, RI interval has decreased, Vent. rate has increased [...] and metoprolol dosing (more content not included)... [facility] 10-23-2023 Note [place] [facility] Subjective Tracie Crain is a 58 y.o. [...] When compared with ECG of 21-MAR-2019 20:42, RI interval has decreased, Vent. rate has increased [...] consistent with deco (more content not included)... [facility] 11-29-2020 Note Chief Complaint referral for nevus [...] vaccine, inactivated - Not Given Patient Refuses [facility] Comment on above: Result Comment: Elec tronically Signed By: Tracie WOODY MD\.br\Date and Time Signed: 11/29/20 14:05 EST Summary Purpose Family History No Family History Records FoundNo Family History Records FoundNo Family History Records FoundNo Family History Records FoundNo Family History Records Found Advance Directives No Advanced Directives Records FoundNo Advanced Directives Records FoundNo Advanced Directives Records FoundNo Advanced Directives Records FoundNo Advanced Directives Records Found Hospital Course Note MR#: [id number] [facility] Pt. Name: Tracie Crain Admitted: 03/14/2019 Discharged: 03/27/2019 Date of : 1965 Physician: iTmbo Black MD DISCHARGE SUMMARY HISTORY: This is a 53-year-old male who was transferred from [facility] for further management of new-onset atrial fibrillation and systolic heart failure. Over the past 2 weeks, he had been having symptoms of lower extremity swelling. He denied chest pain and was very short of breath according to the . At [facility], he was noted to have severe pulmonary venous congestion and was transferred to [facility] after echocardiogram revealed reduced left ventricular systolic [...] section and content) DATE CREATED AUTHOR 03/18/2018 [facility] DATE CREATED AUTHOR AUTHOR'S ORGANIZ ATION 03/02/2020 [facility] DATE CREATED AUTHOR AUTHOR'S ORGANIZ ATION 02/12/2021 [facility] DATE CREATED AUTHOR AUTHOR'S ORGANIZ ATION 02/10/2023 [facility] DATE CREATED AUTHOR AUTHOR'S BROOKE ATION 06/27/2024 [facility] FOR RECORDS PERTAINING TO PATIENTS WHO [...] BE BASED ON THE PRIMARY CLINICAL RECORDS. [facility] [employer] [facility]. provides no warranty or guarantee of the accuracy or completeness of information in this document.
[2024-10-16 16:27] LABS: Internal Control Within Normal Limits; Occult Blood Negative
== END 2024-10-16 15:29 | disposition home or self-care (01) ==
LOC: LAB 15:28
PROVIDERS: PCP Family Medicine; Visit Provider Family Medicine
DX: Z01.89 Encounter for other specified special examinations (principal)
CPT/HCPCS: G0328

== ENCOUNTER 2024-12-25 07:10 | Outpatient (OUT) | payer BC, SELFPAY ==
--- OUTSIDE RECORDS SUMMARY | 2024-12-25 07:14 | XMS_ITS | CCD ---
Author Organization [facility] Care Team Providers Care Academic Advisement Director Name Role Phone TITUS VILLEGAS Referring Unavailable SELF, REFERRED Primary Care Unavailable ANABELL TIMBO Attending Unavailable JIAN SYED Admitting Unavailable PA Procedure Practitioner Unavailab KRYS De [place] Surgeon Unavailable PA Procedure Practitioner Unavailab le ILAN CABA Surgeon Unavailable PA Procedure Practitioner Unavailab rishabh BLACK TIMBO Surgeon Unavailable PA Procedure Practitioner Unavailab MAY De [place] Surgeon Unavailable ILAN CABA Attending Unavailable AIME CABAHRCHANDANA Admitting Unavailable ANABELL, TIMBO Referring Unavailable TITUS [...] Unavailable WEST, DR MELIDA Owen Admkwaku Unavailable WEST, DR MELIDA Owen Consulting Unavailable [...] Unavailable WEST, DR MELIDA Owen Admitting Unavailable KAI RUFFIN [...] Unavailable MOUKARBEL, DR LLANOS Admitting Unavailable LALYKAI MOREJON Consulting Unavailable HOY ., DR QURESHI Primary Care Unavailable KAI RUFFIN Attending Unavailable LALY, KAI Admitting Unavailable MOUKARBEL, [...] Unavailable WEST, DR MELIDA Owen Admitting Unavailable EBER, DR LYNDA Gonzalez Consulting Unavailable WEST, DR MELIDA Owen Consulting Unavailable HOY ., DR QURESHI Primary Care Unavailable WEST, DR MELIDA Owen Attending Unavailable WEST, DR MELIDA Owen Admitting Unavailable MOUKARBELVIET Attending Unavailable MOUKARBEL, VIET Attending Unavailable MOUKARBEL, VIET Attending Unavailable MOUKARBEL, VIET Attending Unavailable MOUKARBELVIET Referring Unavailable MOUKARBEL, VIET Referring Unavailable MOUKARBELVIET Attending Unavailable MOUKARBELVIET Admitting Unavailable MOUKARBEL, VIET Attending Unavailable MOUKARBEL, VIET Admitting Unavailable MOUKARBELVIET Referring Unavailable Titus Villegas MD Primary Care Provider [phone] EVERETTE GOODWIN Attending Unavailable Medications Current Medications Medication Drug Class(es) Dates Sig (Normalized) Sig (Original) aspirin 81 mg delayed release oral tablet (2 sources) Platelet Aggregation Inhibitor, Nonsteroidal Anti-inflammatory Drug Start: 06-26-2024 take 1 tablet by mouth once daily aspirin 81 MG EC tablet Take 1 tablet by mouth Daily 06/26/2024 Active bumetanide 2 mg oral tablet (2 sources) Loop Diuretic bumetanide (Bume x) 2 MG tablet Take by mouth 3 (three) times a day 1.5 tabs Active ferrous sulfate 325 mg oral tablet (2 sources) take 1 tablet by mouth in the morning ferrous sulfate 325 (65 Fe) MG tablet Take 325 mg by mouth in the morning and 325 mg in the evening. Active levothyroxine sodium 0.075 mg oral tablet (2 sources) l-Thyroxine take 1 tablet by mouth before mealtime levothyroxine (Synthroid, Levoxyl) 75 MCG tablet Take 75 mcg by mouth in the morning. Take before meals. Active liothyronine sodium 0.005 mg oral tablet (2 sources) l-Triiodothyronin e Start: 10-14-2024 take 1 tablet by mouth once daily liothyronine (Cytomel) 5 MCG tablet Take 5 mcg by mouth Daily Take on an empty stomach. 10/14/2024 Active 24 hr metoprolol succinate 50 mg extended release oral tablet (2 sources) beta-Adrenergic Fredy Start: 06-26-2024 take 1 tablet by mouth once daily metoprolol succinate XL (Toprol-XL) 50 MG 24 hr tablet Take 1 tablet by mouth Daily 06/26/2024 Active microencapsulated potassium chloride 20 meq extended release oral tablet (2 sources) take 1 tablet by mouth in the morning potassium chloride CR (Klor-Con M20) 20 MEQ ER tablet Take 1 tablet by mouth in the morning and 1 tablet in the evening. Take with meals. Active sertraline 50 mg oral tablet (2 sources) Serotonin Reuptake Inhibitor take 1 tablet by mouth once daily sertraline (Zoloft) 50 MG tablet Take 1 tablet by mouth Daily Active spironolactone 25 mg oral tablet (2 sources) Aldosterone Antagonist take 1 tablet by mouth in the morning spironolactone (Aldactone) 25 MG tablet Take 1 tablet by mouth in the morning and 1 tablet before bedtime. Active Problems Active Problems Problem Classification Problem Date [...] [Lymphedema, not elsewhere classified] Onset: 06-26-2024 Chronic Other lower respiratory disease (2 sources) Snoring; Translations: [Snoring] 11-09-2024 Episodic Other nervous system disorders (2 sources) Circadian rhythm sleep disorder of shift work type; Translations: [Circadian rhythm sleep disorder, shift work type] 11-09-2024 Chronic Other nutritional; endocrine; and metabolic disorders (2 sources) Obesity caused by energy imbalance; Translations: [Other obesity due to excess calories] 11-09-2024 Chronic Pulmonary heart disease (2 sources) Pulmonary hypertension, unspecified; Translations: [Pulmonary hypertension, unspecified] Onset: 04-07-2024 Chronic Residual codes; unclassified (2 sources) Obstructive sleep apnea syndrome; Translations: [Obstructive sleep apnea (adult) (pediatric)] 11-09-2024 Chronic Residual codes; unclassified (2 sources) Hypersomnia; Translations: [Hypersomnia, unspecified] 11-09-2024 Chronic Unclassified (1 source) Atrial septal defect, [...] Range Facility Office Visiton 06-26-2024 Follow-up visit [id number] Tracie Crain 1965 M Date Provider Department Center 06/26/2024 VIET MARIA RUSLAN Og Family History Problem Relation Age of Onset Atrial fibrillation Mother Alzheimer's disease Mother Family Status - Relation Status Age at Mother Level of Service:17037 PA OFFICE/OUTPATIENT ESTABLISHED MOD MDM 30 MIN Normal [facility] 30on 05-06-2024 30 Problem: Discharge Planning Goal: Discharge to [...] goals for the shift include VSS Normal [facility] 30 The patient is Moderately Stable - [...] renal function maintained Outcome: Progressing Flowsheets (Taken 05/06/2024526) Hemodynamic stability and optimal renal function maintained: Monitor labs and assess for signs and symptoms of volume excess or deficit Normal [facility] BASIC METABOLIC PANELon 08-0 Anion gap [Moles/Vol] 13 mmol/L Normal 7- [facility] Comment on above: Performed By: #### L [id number] ####[facility] (AKER)[address] , [place] [address] Calcium [Mass/Vol] 8.5 mg/dL Low 8.6-10.3 [facility] Comment on above: Performed By: #### L [id number] ####[facility] (BEAKER)[address] , [place] [address] Chloride [Moles/Vol] 103 mmol/L Normal 98-[address] [facility] Comment on above: Performed By: #### L [id number] ####[facility] (BEAKER)[address] , [place] [address] CO2 [Moles/Vol] 25 mmol/L Normal 21-31 [facility] Comment on above: Performed By: #### L [id number] ####[facility] (BEAKER)[address] , [place] [address] Creatinine [Mass/Vol] 0.91 mg/dL Normal 0.70-1.30 [facility] Comment on above: Performed By: #### L [id number] ####[facility] ([facility])[address] [place] [address] GLOMERULAR FILTRATION RATE ML/MIN/1.73 SQ M.PREDICTED 96.5 mL/min/1.73m*2 Normal >60.0 [facility] Comment on above: Result Comment: The [facility]???s estimated glomerular filtration rate (eGFR) will no [...] of individuals. Performed By: #### L [id number] ####[facility] ([facility])[address] [place] [address] Glucose [Mass/Vol] 83 mg/dL Normal 70-100 [facility] Comment on above: Performed By: #### L [id number] ####[facility] ([facility])[address] [place] [address] Potassium [Moles/Vol] 3.5 mmol/L Normal 3.5-5.1 [facility] Comment on above: Performed By: #### L [id number] ####[facility] ([facility])[address] [place] [address] Sodium [Moles/Vol] 137 mmol/L Normal 136-145 [facility] Comment on above: Performed By: #### L [id number] ####[facility] ([facility])[address] [place] [address] Urea nitrogen [Mass/Vol] 14 mg/dL Normal 7-25 [facility] Comment on above: Performed By: #### L [id number] ####[facility] ([facility])[address] [place] [address] UREA NITROGEN/CREATININE (MASS RATIO) IN SER/PLAS 15.4 Normal [facility] Comment on above: Performed By: #### L [id number] ####[facility] ([facility])[address] [place] [address] CBCon 05-06-2024 Erythrocyte distribution width (RBC) [Ratio] 13.7 % Normal 11.5-15.0 [facility] Comment on above: Performed By: #### L [id number] ####[facility] ([facility])[address] [place] [address] ERYTHROCYTE MEAN CORPUSCULAR HEMOGLOBIN CONCENTRATION (G/DL) BY AUTOMATED 32.1 g/dL Normal 32.0-35.0 [facility] Comment on above: Performed By: #### L [id number] ####[facility] ([facility])[address] [place] [address] Hematocrit (Bld) [Volume fraction] 43.0 % Normal 39.0-55.0 [facility] Comment on above: Performed By: #### L [id number] ####[facility] ([facility])[address] [place] [address] Hemoglobin (Bld) [Mass/Vol] 13.8 g/dL Normal 13.0-17.0 [facility] Comment on above: Performed By: #### L [id number] ####[facility] ([facility])[address] [place] [address] MCH (RBC) [Entitic mass] 29.9 pg Normal 27.0-33.0 [facility] Comment on above: Performed By: #### L [id number] ####[facility] ([facility])[address] [place] [address] MCV (RBC) [Entitic vol] 93.3 fL Normal 82.0-98.0 [facility] Comment on above: Performed By: #### L [id number] ####[facility] [place] [address] PLATELETS (10*3/UL) IN BLOOD AUTOMATED COUNT 204 10*3/uL Normal 150-400 [facility] Comment on above: Performed By: #### L [id number] ####[facility] (BEAKER)[address] [place] [address] RBC (Bld) [#/Vol] 4.61 10*6/uL Normal 4.20-5.70 [facility] Comment on above: Performed By: #### L [id number] ####[facility] ([facility] [facility] [place] [place] [address] WBC (Bld) [#/Vol] 10.27 10*3/uL Normal 4.00-10.[address] [facility] Comment on above: Performed By: #### L [id number] ####[facility] ([facility])[address] [place] [address] DSon 05-06-2024 DS Admission Admitted 05/05/2024 for [...] output and cardiac index. Presence of significant [id number]-jtlhp shunt at the atrial septal level [The [...] Potassium 3.5 Chlori (more content not included)... [facility] NURSNOTEon 05-06-2024 NURSNOTE Discharge paperwork gone over and explained to pt and family member at this time. All questions answered at bedside. Pt and family denies further questions. Pt discharged. [facility] 30on 05-05-2024 30 Problem: Discharge Planning [...] for the shift include stable hemodynamics Normal [facility] HPon 05-05-2024 History Of Present Illness Tracie [...] evidence of right-sided volume overload due to qrsf-yg-[id number] shunting despite optimization of medical therapy. Past Medical History He has a past medical history of Atrial fibrillation ([facility]), CHF (congestive heart failure) (CMS/HCC), GERD (gastroesophageal [...] The patie (more content not included)... Normal [facility] NURSNOTEon 05-05-2024 NURSNOTE Report given to Caroline gonzalez RN from [facility] Any medications or safety alerts were reviewed. Any pending diagnostics and notifications were also reviewed, as well as any safety concerns or issues, abnormal labs, abnormal imagining, and abnormal assessment findings. Questions were answered. Normal [facility] PATRICK Macias Harhash notified of ACT being 231. Dr. Lee verbally ordered transfer to ICU and is contacting Dr. Salas to notify him of elevated ACT, and to discuss further action. Normal [facility] NURSNOTE CHG wipes and betadi ne nasal swabs completed. Normal [facility] NURSNOTE This report has been cancelled. Normal [facility] POCT ACTIVATED CLOTTING TIME UNSOLICITED RESULTSon 05-05-2024 POC ACTIVATED CLOTTING TIME 154 sec High 82-152 [facility] Comment on above: Performed By: #### L [id number] ####[facility] (BEAKER)[address] [place] [address] Letter (Out)on 04-14-2024 Letter (Out) [id number] Tracie Crain 1965 [facility] Department [place] 04/14/2024 None-None [facility] Family History Problem Relation Age of Onset Atrial fibrillation Mother Alzheimer's disease Mother Family Status - Relation Status Age at Mother [facility] Letter (Out)on 04-10-2024 Letter (Out) [id number] Tracie Crain 1965 [facility] Department [place] 04/10/2024 None-None [facility] Family History Problem Relation Age of Onset Atrial fibrillation Mother Alzheimer's disease Mother Family Status - Relation Status Age at Mother [facility] Letter (Out)on 04-08-2024 Letter (Out) [id number] Tracie Crain 1965 [facility] Provider Department Center 04/08/2024 None-None [facility] C Family History Problem Relation Age of Onset Atrial fibrillation Mother Alzheimer's disease Mother Family Status - Relation Status Age at Mother [facility] Office Visiton 03-26-2024 Follow-up visit [id number] Tracie Crain 1965 [facility] Provider Department [place] 03/26/2024 VIET MARIA [facility] Arely [facility] Family History Problem Relation Age of Onset Atrial fibrillation Mother Alzheimer's disease Mother Family Status - Relation Status Age at Mother Level of Service:76300 PA OFFICE/OUTPATIENT ESTABLISHED HIGH MDM 40 MIN [facility] 02-28-2024 H&P reviewed. The patient was examined and there are no changes to the H&P. [facility] Cardiology - [facility] I have seen and examined the [...] When compared with ECG of 21-MAR-2019 20:42, PA interval has decreased, Vent. rate has increased [...] posterior mitral (more content not included)... Normal [facility] NURSNOTEwendy 02-28-2024 PATRICK RN educated pt on d/ c instructions. RN encouraged pt to voice any questions or concerns. Pt verbalizes no questions or concerns at this time. Pt was wheeled off of unit with all of belongings. Normal [facility] NURSNOTE Bedside swallow stud y completed and passed. Normal [facility] Office Visiton 01-24-2024 Follow-up visit [id number] Tracie Crain 1965 M Date Provider Department Center 01/24/2024 VIET MARIA Family History Problem Relation Age of Onset Atrial fibrillation Mother Alzheimer's disease Mother Family Status - Relation Status Age at Mother Level of Service:98036 PA OFFICE/OUTPATIENT ESTABLISHED HIGH MDM 40 MIN Reason for Visit and Comments: Follow-up [754650] - 3 month w/ echo done on 01/23/2024 [facility] Office Visiton 10-23-2023 Follow-up visit [id number] Tracie Crain 1965 M Date Provider Department Center 10/23/2023 VIET MARIA Family History Problem Relation Age of Onset Atrial fibrillation Mother Alzheimer's disease Mother Family Status - Relation Status Age at Mother Level of Service:77588 PA OFFICE/OUTPATIENT ESTABLISHED MOD MDM 30 MIN [facility] ECHOCARDIO M/2D COMPLETEon 0 02-05-2023 ECHOCARDIO M/2D COMPLETE Patient: TRACIE CRAIN Exam Date: 02/05/2023 : 1965 Gender:M Ordering : DR VIET SALAS M.D. Admission #: [id number] Family : Order #: [id number] CLICK HERE TO VIEW EXAM ECHOCARDIOGRAM REPORT [...] Jenkins M.D. on 02/05/2023 at 16:31 Normal [facility] BNPon 12-19-2022 Natriuretic peptide B (Bld) [Mass/Vol] 859.0 pg/mL Normal <=900.0 [facility] Comment on above: Performed By: #### B MP, BNP #### [facility] [address] [place] [id number] Leonie Beckham PROF CHEM 8 (BAS METB)on Anion gap [Moles/Vol] 9.9 mmol/L Normal [facility] Comment on above: Performed By: #### B MP, BNP #### [facility] [address] [place] [address] Dr. Leonie Beckham Calcium [Mass/Vol] 9.4 mg/dL Normal 8.5-10.1 [facility] Comment on above: Performed By: #### B MP, BNP #### [facility] [address] [place] [address] Dr. Leonie Beckham Chloride [Moles/Vol] 102 mmol/L Normal 98-107 [facility] Comment on above: Performed By: #### B MP, BNP #### [facility] [address] [place] [address] Dr. Leonie Beckham CO2 [Moles/Vol] 32.0 mmol/L Normal 21.0-32.0 [facility] Comment on above: Performed By: #### B MP, BNP #### [facility] [address] [place] [address] Dr. Leonie Beckham Creatinine [Mass/Vol] 1.17 mg/dL Normal 0.70-1.30 [facility] Comment on above: Performed By: #### B MP, BNP #### [facility] [address] [place] [address] Dr. Leonie Beckham EGFR-AF GEORGIAN >60 Normal >=60 [facility] Comment on above: Performed By: #### B MP, BNP #### [facility] [address] [place] [address] Dr. Leonie Beckham EGFR-NON AF GEORGIAN >60 Normal >=60 [facility] Comment on above: Performed By: #### B MP, BNP #### [facility] [address] [place] [address] Dr. Leonie Beckham Glucose [Mass/Vol] 106 mg/dL Normal 74-106 [facility] Comment on above: Performed By: #### B MP, BNP #### [facility] [address] [place] [address] Dr. Leonie Beckham Potassium [Moles/Vol] 3.9 mmol/L Normal 3.5-5.1 [facility] Comment on above: Performed By: #### B MP, BNP #### [facility] [address] [place] [address] Dr. Leonie Beckham Sodium [Moles/Vol] 140 mmol/L Normal 136-145 [facility] Comment on above: Performed By: #### B MP, BNP #### [facility] [address] [address] [address] Leonie Beckham Urea nitrogen [Mass/Vol] 25.0 mg/dL Critically high 7.0-18.0 [facility] Comment on above: Performed By: #### B MP, BNP #### [facility] [address] [address] [address] Leonie Beckham Urea nitrogen/Creatinine [Mass ratio] 21.4 mg/mg Normal [facility] Comment on above: Performed By: #### B MP, BNP #### [facility] [address] [address] [address] Leonie Beckham ECHOCARDIO M/2D COMPLETEon 0 11-09-2022 ECHOCARDIO M/2D COMPLETE Patient: TRACIE CRAIN Exam Date: 11/09/2022 : 1965 Gender:M Ordering : DR VIET SALAS M.D. Admission #: [id number] Family : DR TITUS VILLEGAS . Order #: [id number] CLICK HERE TO VIEW EXAM ECHOCARDIOGRAM REPORT [...] M.D. on 11/09/2022 at 16:31 Normal [facility] PROF CHEM 8 (BAS METB)on Anion gap [Moles/Vol] 8.0 mmol/L Normal [facility] Comment on above: Performed By: #### B MP #### [facility] [address] [address] [address] Leonie Beckham Calcium [Mass/Vol] 8.6 mg/dL Normal 8.5-10.1 [facility] Comment on above: Performed By: #### B MP #### [facility] [address] [address] [address] Leonie Beckham Chloride [Moles/Vol] 102 mmol/L Normal 98-107 [facility] Comment on above: Performed By: #### B MP #### [facility] [address] [address] [address] Leonie Beckham CO2 [Moles/Vol] 31.5 mmol/L Normal 21.0-32.0 [facility] Comment on above: Performed By: #### B MP #### [facility] [address] [address] [address] Leonie Beckham Creatinine [Mass/Vol] 1.13 mg/dL Normal 0.70-1.30 [facility] Comment on above: Performed By: #### B MP #### [facility] [address] [address] [address] Leonie Beckham EGFR-AF GEORGIAN >60 Normal >=60 [facility] Comment on above: Performed By: #### B MP #### [facility] [address] [address] [address] Leonie Beckham EGFR-NON AF GEORGIAN >60 Normal >=60 [facility] Comment on above: Performed By: #### B MP #### [facility] [address] [address] [address] Leonie Beckham Glucose [Mass/Vol] 100 mg/dL Normal 74-106 [facility] Comment on above: Performed By: #### B MP #### [facility] [address] [address] [address] Leonie Beckham Potassium [Moles/Vol] 3.5 mmol/L Normal 3.5-5.1 [facility] Comment on above: Performed By: #### B MP #### [facility] [address] [address] [address] Leonie Beckham Sodium [Moles/Vol] 138 mmol/L Normal 136-145 [facility] Comment on above: Performed By: #### B MP #### [facility] [address] [address] [address] Leonie Beckham Urea nitrogen [Mass/Vol] 24.0 mg/dL Critically high 7.0-18.0 [facility] Comment on above: Performed By: #### B MP #### [facility] [address] [address] [address] Leonie Beckham Urea nitrogen/Creatinine [Mass ratio] 21.2 mg/mg Normal [facility] Comment on above: Performed By: #### B MP #### [facility] [address] [address] [address] Leonie Beckham ECHOCARDIO M/2D COMPLETEon 0 06-27-2022 ECHOCARDIO M/2D COMPLETE Patient: TRACIE CRAIN Exam Date: 06/27/2022 : 1965 Gender:M Ordering : KAI RUFFIN [facility] Admission #: [id number] Family : DR TITUS VILLEGAS . Order #: [id number] CLICK HERE TO VIEW EXAM ECHOCARDIOGRAM REPORT [...] Salas M.D. on 06/27/2022 at 18:23 Normal [facility] VC CONSULT FOLLOWUPon 2021 VC CONSULT FOLLOWUP Patient: TRACIE CRAIN Exam Date: 06/13/2022 : 1965 Gender:M Ordering : DR MELIDA CUELLAR M.D. Admission #: [id number] Family : Order #: [id number] CLICK HERE TO VIEW EXAM RADIOLOGY REPORT [...] Cuellar MD on 06/13/2022 at 14:59 Normal [facility] VC EXT VENOUS RT LIMITEDon 0 06-13-2022 VC EXT VENOUS RT LIMITED Patient: TRACIE CRAIN Exam Date: 06/13/2022 : 1965 Gender:M Ordering : DR MELIDA CUELLAR M.D. Admission #: [id number] Family : Order #: [id number] CLICK HERE TO VIEW EXAM RADIOLOGY REPORT [...] veins in the medial right leg. Associated manager front office distal medial also thrombosed 3.1 mm from [...] Cuellar MD on 06/13/2022 at 15:42 Normal [facility] VC INJ FOAM SCLERO W US MLTI on 06-07-2022 VC INJ FOAM SCLERO W US MLTI Patient: TRACIE CRAIN Exam Date: 06/07/2022 : 1965 Gender:M Ordering : DR MELIDA CUELLAR M.D. Admission #: [id number] Family : Order #: [id number] CLICK HERE TO VIEW EXAM RADIOLOGY REPORT [...] for (more content not included)... Normal [facility] VC CONSULT FOLLOWUPon 2021 VC CONSULT FOLLOWUP Patient: TRACIE CRAIN Exam Date: 06/01/2022 : 1965 Gender:M Ordering : DR MELIDA CUELLAR M.D. Admission #: [id number] Family : Order #: [id number] CLICK HERE TO VIEW EXAM RADIOLOGY REPORT [...] Cuellar MD on 06/01/2022 at 09:48 Normal [facility] VC EXT VENOUS LT LIMITEDon 0 06-01-2022 VC EXT VENOUS LT LIMITED Patient: TRACIE CRAIN Exam Date: 06/01/2022 : 1965 Gender:M Ordering : DR MELIDA CUELLAR M.D. Admission #: [id number] Family : Order #: [id number] CLICK HERE TO VIEW EXAM RADIOLOGY REPORT [...] Cuellar MD on 06/01/2022 at 09:29 Normal [facility] VC INJ FOAM SCLERO W US MLTI on 05-25-2022 VC INJ FOAM SCLERO W US MLTI Patient: TRACIE CRAIN Exam Date: 05/25/2022 : 1965 Gender:M Ordering : DR MELIDA CUELLAR M.D. Admission #: [id number] Family : Order #: [id number] CLICK HERE TO VIEW EXAM RADIOLOGY REPORT [...] Lynda Aguilar M.D. on 05/25/2022 at 11:44 [facility] VC CONSULT FOLLOWUPon 2021 VC CONSULT FOLLOWUP Patient: TRACIE CRAIN Exam Date: 05/14/2022 : 1965 Gender:M Ordering : DR MELIDA CUELLAR M.D. Admission #: [id number] Family : Order #: [id number] CLICK HERE TO VIEW EXAM RADIOLOGY REPORT [...] physical exam and consultation Dictated by: Lynda Aguliar M.D. on 05/14/2022 at 09:36 Approved by: Lynda Aguilar M.D. on 05/14/2022 at 09:41 Normal [facility] VC EXT VENOUS RT LIMITEDon 0 05-14-2022 VC EXT VENOUS RT LIMITED Patient: TRACIE CRAIN. Exam Date: 05/14/2022 : 1965 Gender:M Ordering : DR MELIDA CUELLAR M.D. Admission #: [id number] Family : Order #: [id number] CLICK HERE TO VIEW EXAM RADIOLOGY REPORT [...] Aguilar M.D. on 05/14/2022 at 09:35 Normal [facility] VC ENDOVENOUS ABL PERFORATIN G RTon 05-10-2022 VC ENDOVENOUS ABL PERFORATING RT Patient: TRACIE CRAIN Exam Date: 05/10/2022 : 1965 Gender:M Ordering : DR MELIDA CUELLAR M.D. Admission #: [id number] Family : Order #: [id number] CLICK HERE TO VIEW EXAM RADIOLOGY REPORT PROCEDURE: [facility] ENDOVENOUS ABLATION FOR VEIN RIGHT GREAT SAPHENOUS VEIN COMPARISON: None. INDICATIONS: Pain co-occurrent and due to varicose veins of bilateral legs I83.813 OPERATIVE REPORT: Diagnosis: Superficial venous reflux, incompetent perforating veins Procedure: Endovenous laser ablation of the left manager front office(s) Procedure: The patient was positioned supine on [...] Cuellar MD on 05/10/2022 at 10:50 Normal [facility] VC CONSULT FOLLOWUPon 2021 VC CONSULT FOLLOWUP Patient: TRACIE CRAIN Exam Date: 05/04/2022 : 1965 Gender:M Ordering : DR MELIDA CUELLAR M.D. Admission #: [id number] Family : Order #: [id number] CLICK HERE TO VIEW EXAM RADIOLOGY REPORT [...] Aguilar M.D. on 05/04/2022 at 08:38 Normal [facility] VC EXT VENOUS LT LIMITEDon 0 05-04-2022 VC EXT VENOUS LT LIMITED Patient: TRACIE CRAIN Exam Date: 05/04/2022 : 1965 Gender:M Ordering : DR MELIDA CUELLAR M.D. Admission #: [id number] Family : Order #: [id number] CLICK HERE TO VIEW EXAM RADIOLOGY REPORT [...] Aguilar M.D. on 05/04/2022 at 08:32 Normal [facility] VC ENDOVENOUS ABL 1ST V LTon 04-27-2022 VC ENDOVENOUS ABL 1ST V LT Patient: TRACIE CRAIN Exam Date: 04/27/2022 : 1965 Gender:M Ordering : DR MELIDA CUELLAR M.D. Admission #: [id number] Family : Order #: [id number] CLICK HERE TO VIEW EXAM RADIOLOGY REPORT [...] M.D. on 04/27/2022 at 10:32 Normal [facility] CBC AUTO DIFFon 04-05-2022 BASO # 0.1 103/ul Normal 0.0-0.1 [facility] Comment on above: Performed By: #### C BC ####[facility] [address] [place], [place] [address]Dr. Leonie Beckham Basophils/100 WBC (Bld) 1.2 % Normal 0.2-2.0 [facility] Comment on above: Performed By: #### C BC ####[facility] [address] [place] [address]DrGabino Beckham EO # 0.3 103/ul Normal 0.0-0.7 [facility] Comment on above: Performed By: #### C BC ####[facility] [address] [place] [address]DrGabino Beckham Eosinophils/100 WBC (Bld) 3.9 % Normal 0.9-7.0 [facility] Comment on above: Performed By: #### C BC ####[facility] [address] [place] [address]DrGabino Beckham Erythrocyte distribution width (RBC) [Ratio] 13.2 % Normal 11.0-15.0 [facility] Comment on above: Performed By: #### C BC ####[facility] [address] [place] [address]Dr. Leonie Beckham Hematocrit (Bld) [Volume fraction] 43.5 % Normal 42.0-54.0 [facility] Comment on above: Performed By: #### C BC ####[facility] [address] [place] [address]Dr. Leonie Beckham Hemoglobin (Bld) [Mass/Vol] 13.9 g/dL Critically low 14.0-18.0 [facility] Comment on above: Performed By: #### C BC ####[facility] [address] [place], [place] [address]Dr. Kaleighjacob Beckham IG # 0.03 10e3/ul Normal 0.00-0.03 [facility] Comment on above: Performed By: #### C BC ####[facility] [address] [place], [place] [address]Dr. Leonie Beckham IG % 0.4 % Normal 0.0-0.5 [facility] Comment on above: Performed By: #### C BC ####[facility] [address] [place], [place] [address]Dr. Leonie Beckham LYMPH # 2.0 103/ul Normal 1.2-3.8 [facility] Comment on above: Performed By: #### C BC ####[facility] [address] [place], [place] [address]Dr. Leonie Beckham Lymphocytes/100 WBC (Bld) 25.0 % Normal 20.5-60.0 [facility] Comment on above: Performed By: #### C BC ####[facility] [address] [place], [place] [address]Dr. Leonie Chapincito MANUAL DIFF REQ NO Normal [facility] Comment on above: Performed By: #### C BC ####[facility] [address] [place], [place] [address]Dr. Kaleighjacob Beckham MCH (RBC) [Entitic mass] 30.2 pg Normal 25.9-34.0 [facility] Comment on above: Performed By: #### C BC ####[facility] [address] [place] [address]Dr. Leonie Beckham MCHC (RBC) [Mass/Vol] 32.0 g/dL Normal 29.9-35.2 [facility] Comment on above: Performed By: #### C BC ####[facility] [address] [place] [address]DrGabino Beckham MCV (RBC) [Entitic vol] 94.4 fL Critically high 80.0-94.0 [facility] Comment on above: Performed By: #### C BC ####[facility] [address] [place], [place] [address]DrGabino Beckham MONO # 1.0 103/ul Critically high 0.3-0.8 [facility] Comment on above: Performed By: #### C BC ####[facility] [address] [place], [place] [address]Dr. Leonie Beckham Monocytes/100 WBC (Bld) 12.0 % Normal 1.7-12.0 [facility] Comment on above: Performed By: #### C BC ####[facility] [address] [place], [place] [address]DrGabino Beckham NEUT # 4.6 103/ul Normal 1.4-6.5 [facility] Comment on above: Performed By: #### C BC ####[facility] [address] [place], [place] [address]DrGabino Beckham Neutrophils/100 WBC (Bld) 57.5 % Normal 43.0-75.0 [facility] Comment on above: Performed By: #### C BC ####[facility] [address] [place], [place] [address]DrGabino Beckham Platelet mean volume (Bld) [Entitic vol] 9.4 fL Critically low 9.5-13.5 [facility] Comment on above: Performed By: #### C BC ####[facility] [address] [place], [place] [address]Dr. Leonie Beckham PLT 203 103/ul Normal 150-450 [facility] Comment on above: Performed By: #### C BC ####[facility] [address] [place] [id number]. Leonie Beckham RBC 4.61 106/ul Critically low 4.70-6.10 [facility] Comment on above: Performed By: #### C BC ####[facility] [address] [place] [id number]. Leonie Beckham WBC 8.0 103/ul Normal 4.0-11.0 [facility] Comment on above: Performed By: #### C BC ####[facility] [address] [place] [address]Dr. Leonie Beckham FREE T3on 04-05-2022 FREE T3 2.54 pg/mlL Normal 2.18-3.98 [facility] Comment on above: Performed By: #### T SH, LIPID, CMP, T4, FT3 ####[facility] [address] [place] [id number]. Leonie Beckham GLYCOHEMOGLOBIN A1Con 2021 ADA RECOMMENDATION SEE BELOW Normal [facility] Comment on above: Result Comment: ADA RECOMMENDED LIMIT 4.0 - 6.0 ADA THERAPEUTIC TARGET < 7.0 ACTION SUGGESTED > 7.0 Performed By: #### A 1C ####[facility] [address] [place] [address]Dr. Leonie Beckham Glucose [Mass/Vol] 126 mg/dL Normal [facility] Comment on above: Performed By: #### A 1C ####[facility] [address] [place] [id number]. Leonie Beckham HbA1c (Bld) [Mass fraction] 6.0 % Normal 4.5-6.2 [facility] Comment on above: Performed By: #### A 1C ####[facility] [address] [place] [id number]. Leonie Beckham LIPID PROFILEon 04-05-2022 CHOL-HDL RATIO NORM SEE BELOW Normal [facility] Comment on above: Result Comment: 3.3 - 4.4 LOW RISK 4.4 - 7.1 AVERAGE RISK 7.1 - 11.0 MODERATE RISK >11.0 HIGH RISK Performed By: #### T SH, LIPID, CMP, T4, FT3 ####[facility] [address] [place] [id number]. Leonie Beckham Cholesterol [Mass/Vol] 137 mg/dL Normal <=200 [facility] Comment on above: Performed By: #### T SH, LIPID, CMP, T4, FT3 ####[facility] [address] [place] [address]Dr. Kaleighlan Beckham Cholesterol in HDL [Mass/Vol] 40 mg/dL Normal 40-60 [facility] Comment on above: Performed By: #### T SH, LIPID, CMP, T4, FT3 ####[facility] [address] [place], [place] [address]Dr. Leonie Beckham Cholesterol in LDL [Mass/Vol] 84.0 mg/dL Normal [facility] Comment on above: Performed By: #### T SH, LIPID, CMP, T4, FT3 ####[facility] [address] [place] [id number]. Kaleighjacob Beckham Cholesterol.total/Ch olesterol in HDL [Mass ratio] 3.4 {ratio} Normal [facility] Comment on above: Performed By: #### T SH, LIPID, CMP, T4, FT3 ####[facility] [address] [place] [address]Dr. Leonie Beckham HDL NORMAL > or = 60 mg/dl - LO W CARDIOVASCULAR RISK <40 mg/dl - HIGH CARDIOVASCULAR RISK Normal [facility] Comment on above: Performed By: #### T SH, LIPID, CMP, T4, FT3 ####[facility] [address] [place] [address]Dr. Leonie Beckham LDL CALC NORMAL SEE BELOW Normal [facility] Comment on above: Result Comment: <100 mg/dl OPTIMAL 100 - 129 mg/dl NEAR OR ABOVE OPTIMAL 130 - 159 mg/dl BORDERLINE HIGH 160 - 189 mg/dl HIGH >190 mg/dl VERY HIGH Performed By: #### T SH, LIPID, CMP, T4, FT3 ####[facility] [address] [place] [address]Dr. Leonie Beckham Triglyceride [Mass/Vol] 65 mg/dL Normal <=150 [facility] Comment on above: Performed By: #### T SH, LIPID, CMP, T4, FT3 ####[facility] [address] [place] [address]Dr. Leonie Beckham VLDL CALC 13.0 mg/dL Normal [facility] Comment on above: Performed By: #### T SH, LIPID, CMP, T4, FT3 ####[facility] [address] [place] [address]Dr. Leonie Beckham PROF 14(COMP METB)on 022 Albumin [Mass/Vol] 3.8 g/dL Normal 3.4-5.0 [facility] Comment on above: Performed By: #### T SH, LIPID, CMP, T4, FT3 ####[facility] [address] [place] [address]Dr. Leonie Beckham Albumin/Globulin [Mass ratio] 1.2 {ratio} Normal [facility] Comment on above: Performed By: #### T SH, LIPID, CMP, T4, FT3 ####[facility] [address] [place] [address]Dr. Leonie Beckham ALP [Catalytic activity/Vol] 81 U/L Normal 46-116 [facility] Comment on above: Performed By: #### T SH, LIPID, CMP, T4, FT3 ####[facility] [address] [place] [address]Dr. Leonie Beckham ALT [Catalytic activity/Vol] 35 U/L Normal 16-63 [facility] Comment on above: Performed By: #### T SH, LIPID, CMP, T4, FT3 ####[facility] [address] [place] [address]Dr. Leonie Beckham Anion gap [Moles/Vol] 10.8 mmol/L Normal [facility] Comment on above: Performed By: #### T SH, LIPID, CMP, T4, FT3 ####[facility] [address] [place] [address]Dr. Leonie Beckham AST [Catalytic activity/Vol] 22 U/L Normal 15-37 [facility] Comment on above: Performed By: #### T SH, LIPID, CMP, T4, FT3 ####[facility] [address] [place] [address]Dr. Leonie Beckham Bilirubin [Mass/Vol] 1.1 mg/dL Critically high 0.2-1.0 [facility] Comment on above: Performed By: #### T SH, LIPID, CMP, T4, FT3 ####[facility] [address] [place] [address]Dr. Leonie Beckham Calcium [Mass/Vol] 8.6 mg/dL Normal 8.5-10.1 [facility] Comment on above: Performed By: #### T SH, LIPID, CMP, T4, FT3 ####[facility] [address]tw[address] [place] [address]Dr. Leonie Beckham Chloride [Moles/Vol] 105 mmol/L Normal 98-107 [facility] Comment on above: Performed By: #### T SH, LIPID, CMP, T4, FT3 ####[facility] [address] [place], [place] [address]Dr. Leonie Beckham CO2 [Moles/Vol] 28.2 mmol/L Normal 21.0-32.0 [facility] Comment on above: Performed By: #### T SH, LIPID, CMP, T4, FT3 ####[facility] [address] [place] [address]Dr. Leonie Beckham Creatinine [Mass/Vol] 1.33 mg/dL Critically high 0.70-1.30 [facility] Comment on above: Performed By: #### T SH, LIPID, CMP, T4, FT3 ####[facility] [address] [place], [place] [address]Dr. Leonie Beckham EGFR-AF GEORGIAN >60 Normal >=60 [facility] Comment on above: Performed By: #### T SH, LIPID, CMP, T4, FT3 ####[facility] [address] [place] [address]Dr. Leonie Beckham EGFR-NON AF GEORGIAN 55 mL/min/1.73m2 Critically low >=60 [facility] Comment on above: Performed By: #### T SH, LIPID, CMP, T4, FT3 ####[facility] [address]xy[address] [place] [address]Dr. Leonie Beckham Globulin (S) [Mass/Vol] 3.3 g/dL Normal [facility] Comment on above: Performed By: #### T SH, LIPID, CMP, T4, FT3 ####[facility] [address] [place] [address]Dr. Leonie Beckham Glucose [Mass/Vol] 94 mg/dL Normal 74-106 [facility] Comment on above: Performed By: #### T SH, LIPID, CMP, T4, FT3 ####[facility] [address] [place] [address]Dr. Leonie Beckham Potassium [Moles/Vol] 4.0 mmol/L Normal 3.5-5.1 [facility] Comment on above: Performed By: #### T SH, LIPID, CMP, T4, FT3 ####[facility] [address] [place] [address]Dr. Leonie Beckham Protein [Mass/Vol] 7.1 g/dL Normal 6.4-8.2 [facility] Comment on above: Performed By: #### T SH, LIPID, CMP, T4, FT3 ####[facility] [address] [place], [place] [address]Dr. Leonie Beckham Sodium [Moles/Vol] 140 mmol/L Normal 136-145 [facility] Comment on above: Performed By: #### T SH, LIPID, CMP, T4, FT3 ####[facility] [address] [place], [place] [address]Dr. Leonie Beckham Urea nitrogen [Mass/Vol] 24.0 mg/dL Critically high 7.0-18.0 [facility] Comment on above: Performed By: #### T SH, LIPID, CMP, T4, FT3 ####[facility] [address] [place], [place] [address]Iu. Leonie Beckham Urea nitrogen/Creatinine [Mass ratio] 18.0 mg/mg Normal [facility] Comment on above: Performed By: #### T SH, LIPID, CMP, T4, FT3 ####[facility] [address] [place], [place] [address]Uj. Leonie Beckham T4on 04-05-2022 T4 [Mass/Vol] 7.70 ug/dL Normal 4.50-12.10 [facility] Comment on above: Performed By: #### T SH, LIPID, CMP, T4, FT3 ####[facility] [address]tr[address] [place], [place] [address]Cn. Leonie Beckham TSHon 04-05-2022 TSH 3.042 uIU/mL Normal 0.358-3.740 [facility] Comment on above: Performed By: #### T SH, LIPID, CMP, T4, FT3 ####[facility] [address] [place], [place] [address]Oy. Leonei Beckham VC COMP CONSULTATIONon 03-08 VC COMP CONSULTATION Patient: TRACIE CRAIN Exam Date: 03/08/2022 : 1965 Gender:M Ordering : DR TITUS VILLEGAS . 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 The [...] 03/08/2022 a (more content not included)... Normal [facility] Ambulatory Clinical Summaryo n 12-20-2020 Ambulatory Clinical Summary {[id number]}CD:[id number] Normal [facility] Coding Summary.on 12-20-2020 Coding Summary. CODING DATE: 12/19/2020 FINAL [facility] STATUS: Home (Routine DC) PAYOR: Commercial [...] CphT Date Saved: 12/19/2020 11:58 pm Normal [facility] General Surgery Office/Clini c Noteon 12-20-2020 [...] ADKINS, Tracie Gonzalez Only if needed [address] [place] [address]- Additional Instructions: Problem List/Past Medical [...] inactivated - Not Given Patient Refuses Normal [facility] Comment on above: Result Comment: Elec tronically Signed By: BONG ADKINS, Tracie Sarah\Date and Time Signed: 12/20/20 15:58 EDT Ambulatory Clinical Summaryo n 12-09-2020 Ambulatory Clinical Summary {[id number]}CD:[id number] Normal [facility] General Surgery Office/Clini c Noteon 12-09-2020 [...] inactivated - Not Given Patient Refuses Normal [facility] Comment on above: Result Comment: Elec tronically Signed By: BONG ADKINS, Tracie Gonzalez\.br\Date and Time Signed: 12/09/20 09:30 EST Provider Letter FTon 11-30 Provider Letter [facility] Titus Villegas, [facility] [place] [address] Re: TRACIE CRAIN Date of : 1965 Thank you for your referral of Tracie Crain who was seen on consultation on November 29, 2020, for growth on left lower back that is changing. An excisional biopsy is planned. I have enclosed my consultation notes for your review. I will be happy to follow Tracie. Sincerely, Tracie Woody MD General Surgery [facility] Ambulatory Clinical Summaryo n 11-29-2020 Ambulatory Clinical Summary {[id number] [facility] Physician Referralon 021 Physician Referral [id number] 0CD:127 [facility] Operative Reporton 9 Operative Report MR#: [id number] S [facility] Pt. Name: Tracie Crain Room #: CC [...] The patient was brought to the laborer wrecking and salvaging and transesophageal echocardiogram was performed under conscious [...] Reyna MD Date Trans: 05/12/2019 01:23 P/tylero DN_JN:[id number] cc: Titus Villegas M.D. [address] [facility] [address] Timbo Black MD [address] [facility]. [facility] [address] Normal [facility] BASIC METABOLIC PANELon 07-0 Calcium [Mass/Vol] 9.4 mg/dL Normal 8.6-10.3 [facility] Comment on above: Performed By: #### 0 0121, 92780, 24971, 71715, 89176 #### [facility] [address] [facility] [place] [address], [facility] Chloride [Moles/Vol] 99 mmol/L Normal 98-107 [facility] Comment on above: Performed By: #### 0 0121, 03703, 74071, 37111, 79809 #### [facility] [address] [place] [address], [place] CO2 [Moles/Vol] 31 mmol/L Normal 21-31 [facility] Comment on above: Performed By: #### 0 0121, 20157, 85434, 43741, 30250 #### [facility] [address] [place] [address], [place] Creatinine [Mass/Vol] 1.22 mg/dL Normal 0.70-1.30 [facility] Comment on above: Performed By: #### 0 0121, 36672, 68453, 74763, 79784 #### [facility] [address] [place] [address], [place] GFR/1.73 sq M predicted among blacks MDRD (S/P/Bld) [Vol rate/Area] mL/min/{1.73_m2} Normal >60 [facility] Comment on above: Performed By: #### 0 0121, 56315, 22159, 41898, 24986 #### [facility] [address] [place] [address], [place] GFR/1.73 sq M predicted among non-blacks MDRD (S/P/Bld) [Vol rate/Area] mL/min/{1.73_m2} Normal >60 [facility] Comment on above: Performed By: #### 0 0121, 31649, 87993, 91352, 25218 #### [facility] [address] [place] [address], [place] Glucose [Mass/Vol] 126 mg/dL High 70-100 [facility] [facility] Comment on above: Performed By: #### 0 0121, 33365, 60429, 14426, 40111 #### [facility] [address] [place] [address], [place] Potassium [Moles/Vol] 3.8 mmol/L Normal 3.5-5.1 [facility] Comment on above: Performed By: #### 0 0121, 17969, 58682, 20381, 76735 #### [facility] [address] [place] [address], [facility] Sodium [Moles/Vol] 139 mmol/L Normal 136-145 [facility] Comment on above: Performed By: #### 0 0121, 67509, 69930, 09674, 66088 #### [facility] [address] Urea nitrogen [Mass/Vol] 15 mg/dL Normal 7-25 [facility] Comment on above: Performed By: #### 0 0121, 17377, 85753, 03697, 67609 #### [facility] [address] BNP (B-TYPE NATRIURETIC PEPT PACHECO)on 04-07-2019 Natriuretic peptide B (Bld) [Mass/Vol] 502 pg/mL High 0-100 [facility] Comment on above: Result Comment: Give n the appropriate clinical setting a BNP result of >100 pg/mL indicates congestive heart failure. Performed By: #### 0 0121, 10276, 45194, 30574, 47062 #### [facility] [address] CBC W/DIFFon 04-07-2019 ABS BASOPHILS 0.1 10*3/uL Normal 0.0-0.2 [facility] Comment on above: Performed By: #### 0 0121, 72261, 91481, 81485, 46513 #### [facility] [address] ABS IMM GRANS 0.0 10*3/uL Normal 0.0-0.2 [facility] Comment on above: Performed By: #### 0 0121, 19187, 26926, 45005, 27351 #### [facility] [address] [place] [address], [facility] ABS NEUTROPHILS 5.1 10*3/uL Normal 1.6-7.6 [facility] Comment on above: Performed By: #### 0 0121, 83720, 74702, 67998, 98057 #### [facility] [address] [place] [address], [place] Basophils/100 WBC (Bld) 1.5 % High 0.0-1.0 [facility] Comment on above: Performed By: #### 0 0121, 17115, 90212, 03270, 76588 #### [facility] [address] [place] [address], [facility] Eosinophils (Bld) [#/Vol] 0.3 10*3/uL Normal 0.0-0.5 [facility] Comment on above: Performed By: #### 0 0121, 45456, 50798, 95667, 14600 #### [facility] [address] [place] [address], [facility] Eosinophils/100 WBC (Bld) 3.7 % Normal 0.0-6.0 The [facility] Comment on above: Performed By: #### 0 0121, 27512, 91928, 04746, 70969 #### [facility] [address] [facility] [place] [address], [facility] Erythrocyte distribution width (RBC) [Ratio] 13.2 % Normal 11.5-15.0 The [facility] Comment on above: Performed By: #### 0 0121, 13904, 77234, 72787, 59014 #### [facility] [address] [facility] [place] [address], [facility] Hematocrit (Bld) [Volume fraction] 39.2 % Normal 39.0-50.0 The [facility] Comment on above: Performed By: #### 0 0121, 20934, 95024, 53298, 26231 #### [facility] [address] [facility] [address], [facility] Hemoglobin (Bld) [Mass/Vol] 12.4 g/dL Low 13.0-17.0 [facility] Comment on above: Performed By: #### 0 0121, 46735, 09069, 06201, 98224 #### [facility] [address] [place] [address], [facility] IMMATURE GRANS 0.4 % Normal 0.0-1.0 [facility] Comment on above: Performed By: #### 0 0121, 63259, 55186, 64965, 29011 #### [facility] [address] [facility] [address], [facility] Lymphocytes (Bld) [#/Vol] 1.7 10*3/uL Normal 1.2-4.0 The [facility] Comment on above: Performed By: #### 0 0121, 42991, 55057, 82440, 13270 #### [facility] [address] [place] [address], [facility] Lymphocytes/100 WBC (Bld) 21.2 % Normal 20.0-45.0 [facility] Comment on above: Performed By: #### 0 0121, 57368, 88523, 62846, 68161 #### [facility] [address] [facility] [place] [address], [facility] MCH (RBC) [Entitic mass] 28.8 pg Normal 27.0-33.0 The [facility] Comment on above: Performed By: #### 0 0121, 29775, 35234, 15971, 11163 #### [facility] [address] [facility] [address], [facility] MCHC (RBC) [Mass/Vol] 31.6 g/dL Low 32.0-35.0 The [facility] Comment on above: Performed By: #### 0 0121, 97754, 79924, 39999, 16517 #### [facility] [address] [place] [address], [facility] MCV (RBC) [Entitic vol] 91.0 fL Normal 82.0-98.0 [facility] Comment on above: Performed By: #### 0 0121, 99347, 76915, 46557, 97922 #### [facility] [address] [place] [address], [facility] Monocytes (Bld) [#/Vol] 0.9 10*3/uL Normal 0.1-1.0 [facility] Comment on above: Performed By: #### 0 0121, 35831, 37170, 10621, 50830 #### [facility] [address] [facility] [address], [facility] MONOS 10.6 % Normal 5.0-12.0 The [facility] Comment on above: Performed By: #### 0 0121, 72155, 80490, 86731, 81690 #### [facility] [address] [facility] [place] [address], [facility] Neutrophils/100 WBC (Bld) 62.6 % Normal 40.0-72.0 [facility] Comment on above: Performed By: #### 0 0121, 45731, 41135, 50182, 11298 #### [facility] [address] [facility] [place] [address], [facility] Nucleated RBC/100 WBC (Bld) [Ratio] 0 % Normal 0-0 [facility] Comment on above: Performed By: #### 0 0121, 71452, 67061, 22699, 42741 #### [facility] [address] [facility] [place] [address], [facility] PLAT CNT 520 10*3/uL High 150-400 [facility] Comment on above: Performed By: #### 0 0121, 39491, 54753, 02234, 75370 #### [facility] [address] [place] [address], [facility] RBC (Bld) [#/Vol] 4.31 10*6/uL Normal 4.20-5.[address] [facility] Comment on above: Performed By: #### 0 0121, 10461, 48786, 03838, 60288 #### [facility] [address] [place] [address], [facility] WBC (Bld) [#/Vol] 8.20 10*3/uL Normal 4.00-10.[address] [facility] Comment on above: Performed By: #### 0 0121, 23120, 00327, 02771, 77100 #### [facility] [address] [place] [address], [facility] HEMOGLOBINon 04-07-2019 Hemoglobin (Bld) [Mass/Vol] CANCELED Normal 13.0-17.0 The [facility] Comment on above: Result Comment: The released value 12.3 was canceled by OCREEGER on 04/07/2019 12:48 Performed By: #### 0 0121, 05237, 55834, 44346, 43910 #### [facility] [address] [place] [id number], [facility] BASIC METABOLIC PANELon - Calcium [Mass/Vol] 9.0 mg/dL Normal 8.6-10.[address] [facility] Comment on above: Order Comment: No: D o not add to previous draw Performed By: #### 0 0121, 14479, 06595, 53197, 54285 #### [facility] [address] [place] [address], [facility] Chloride [Moles/Vol] 98 mmol/L Normal 98-107 [facility] Comment on above: Order Comment: No: D o not add to previous draw Performed By: #### 0 0121, 57405, 19902, 42727, 26275 #### [facility] [address] [place] [address], [facility] CO2 [Moles/Vol] 29 mmol/L Normal 21-31 [facility] Comment on above: Order Comment: No: D o not add to previous draw Performed By: #### 0 0121, 88519, 03397, 63179, 52496 #### [facility] [address] [place] [address], [place] Creatinine [Mass/Vol] 1.00 mg/dL Normal 0.70-1.30 [facility] Comment on above: Order Comment: No: D o not add to previous draw Performed By: #### 0 0121, 26194, 25172, 61459, 77442 #### [facility] [address] [place] [address], [facility] GFR/1.73 sq M predicted among blacks MDRD (S/P/Bld) [Vol rate/Area] mL/min/{1.73_m2} Normal >60 The [facility] Comment on above: Order Comment: No: D o not add to previous draw Performed By: #### 0 0121, 86516, 43635, 78664, 09255 #### [facility] [address] [place] [address], [place] GFR/1.73 sq M predicted among non-blacks MDRD (S/P/Bld) [Vol rate/Area] mL/min/{1.73_m2} Normal >60 The [facility] Comment on above: Order Comment: No: D o not add to previous draw Performed By: #### 0 0121, 54588, 11683, 40252, 44880 #### [facility] [address] [place] [address], [place] Glucose [Mass/Vol] 96 mg/dL Normal 70-100 [facility] Comment on above: Order Comment: No: D o not add to previous draw Performed By: #### 0 0121, 77966, 74893, 18470, 12122 #### [facility] [address] [place] [address], [place] Potassium [Moles/Vol] 3.1 mmol/L Low 3.5-5.1 The [facility] Comment on above: Order Comment: No: D o not add to previous draw Performed By: #### 0 0121, 35530, 59544, 69858, 17513 #### [facility] [address] [place] [address], [place] Sodium [Moles/Vol] 138 mmol/L Normal 136-[address] [facility] Comment on above: Order Comment: No: D o not add to previous draw Performed By: #### 0 0121, 98168, 19373, 65269, 67500 #### [facility] [address] [place] [address], [facility] Urea nitrogen [Mass/Vol] 24 mg/dL Normal 7-25 The [facility] Comment on above: Order Comment: No: D o not add to previous draw Performed By: #### 0 0121, 41172, 80256, 35661, 53395 #### [facility] [address] [place] [address], [facility] CBC COMPLETE BLOOD COUNTon - Erythrocyte distribution width (RBC) [Ratio] 13.6 % Normal 11.5-15.0 [facility] Comment on above: Order Comment: No: D o not add to previous draw Performed By: #### 0 0121, 97239, 44227, 33891, 32757 #### [facility] [address] [place] [address], [place] Hematocrit (Bld) [Volume fraction] 34.7 % Low 39.0-50.0 The [facility] Comment on above: Order Comment: No: D o not add to previous draw Performed By: #### 0 0121, 93567, 58481, 13907, 45172 #### [facility] [address] [place] [address], [place] Hemoglobin (Bld) [Mass/Vol] 11.3 g/dL Low 13.0-17.0 [facility] Comment on above: Order Comment: No: D o not add to previous draw Performed By: #### 0 0121, 28773, 96757, 79157, 03419 #### [facility] [address] [place] [address], [facility] MCH (RBC) [Entitic mass] 28.8 pg Normal 27.0-33.0 The [facility] Comment on above: Order Comment: No: D o not add to previous draw Performed By: #### 0 0121, 70907, 25981, 60762, 84528 #### [facility] [address] [place] [id number], [facility] MCHC (RBC) [Mass/Vol] 32.6 g/dL Normal 32.0-35.0 The [facility] Comment on above: Order Comment: No: D o not add to previous draw Performed By: #### 0 0121, 01807, 54516, 86380, 70730 #### [facility] [address] [place] [address], [facility] MCV (RBC) [Entitic vol] 88.5 fL Normal 82.0-98.0 [facility] Comment on above: Order Comment: No: D o not add to previous draw Performed By: #### 0 0121, 97310, 47872, 43462, 85023 #### [facility] [address] [facility] [place] [address], [facility] Nucleated RBC/100 WBC (Bld) [Ratio] 0 % Normal 0-0 The [facility] Comment on above: Order Comment: No: D o not add to previous draw Performed By: #### 0 0121, 76328, 29608, 09371, 39284 #### [facility] [address] [place] [id number], [facility] PLAT CNT 205 10*3/uL Normal 150-400 [facility] Comment on above: Order Comment: No: D o not add to previous draw Performed By: #### 0 0121, 47203, 44057, 36917, 39039 #### [facility] [address] [place] [address], [facility] RBC (Bld) [#/Vol] 3.92 10*6/uL Low 4.20-5.[address] [facility] Comment on above: Order Comment: No: D o not add to previous draw Performed By: #### 0 0121, 78453, 73208, 20248, 00590 #### [facility] [address] [place] [address], [facility] WBC (Bld) [#/Vol] 11.83 10*3/uL High 4.00-10.60 The [facility] Comment on above: Order Comment: No: D o not add to previous draw Performed By: #### 0 0121, 67242, 28051, 12913, 64641 #### [facility] [address] [place] [address], [facility] MAGNESIUM BLOODon 03-27-2019 Magnesium [Mass/Vol] 2.3 mg/dL Normal 1.9-2.7 The [facility] Comment on above: Order Comment: No: D o not add to previous draw Performed By: #### 0 0121, 09054, 42874, 50449, 47386 #### [facility] [address] [place] [address], [facility] POC GLUCOSE LABon 03-27-2019 Glucose [Mass/Vol] 115 mg/dL High 70-[address] [facility] Comment on above: Performed By: #### 0 0121, 42365, 80623, 12855, 95388 #### [facility] [address] [place] [address], [place] Glucose [Mass/Vol] 96 mg/dL Normal 70-[address] [facility] Comment on above: Performed By: #### 0 0121, 68606, 69268, 29320, 66091 #### [id number] [place] [address] PORTABLE CHEST 1 VIEWon 03-01 PORTABLE CHEST 1 VIEW [facility] Department of Radiology [address] [place] [id number] ======== Patient Name: TRACIE CRAIN : 1965 Sex: M Age: Race: NA Pt. Location: [id number] Patient Status: I Ordered Date: 03/27/2019 5:00:00 [...] by:Anai Alvarado on 03/27/2019 6:20 AM EDT. Divya Gonsalez, have reviewed the images and report and concur with these findings. Electronically signed by:Divya Collins. Transcribed by: [email or web address], User Resident: ANAI [email or web address] Electronically Signed by: DIVYA COLLINS @ 03/27/2019 09:07 AM I personally read this/these film(s) with this resident Normal The [facility] Comment on above: Order Comment: No: D o not add to previous draw BASIC METABOLIC PANELon 03-01 Calcium [Mass/Vol] 9.2 mg/dL Normal 8.6-10.3 [facility] Comment on above: Order Comment: No: D o not add to previous draw Performed By: #### 0 0121, 63846, 92402, 74007, 30661 #### [facility] [address] [place] [address], [place] Chloride [Moles/Vol] 101 mmol/L Normal 98-107 [facility] Comment on above: Order Comment: No: D o not add to previous draw Performed By: #### 0 0121, 47907, 87469, 39122, 88100 #### [facility] [address] [place] [address], [place] CO2 [Moles/Vol] 27 mmol/L Normal 21-31 [facility] Comment on above: Order Comment: No: D o not add to previous draw Performed By: #### 0 0121, 51629, 52885, 44619, 76944 #### [facility] [address] [place] [address], [place] Creatinine [Mass/Vol] 0.93 mg/dL Normal 0.70-1.30 The [facility] Comment on above: Order Comment: No: D o not add to previous draw Performed By: #### 0 0121, 27637, 61718, 28310, 83572 #### [facility] [address] [place] [address], [place] GFR/1.73 sq M predicted among blacks MDRD (S/P/Bld) [Vol rate/Area] mL/min/{1.73_m2} Normal >60 The [facility] Comment on above: Order Comment: No: D o not add to previous draw Performed By: #### 0 0121, 28022, 74562, 67885, 44825 #### [facility] [address] [place] [address], [place] GFR/1.73 sq M predicted among non-blacks MDRD (S/P/Bld) [Vol rate/Area] mL/min/{1.73_m2} Normal >60 The [facility] Comment on above: Order Comment: No: D o not add to previous draw Performed By: #### 0 0121, 73433, 11409, 82422, 20158 #### [facility] [address] [place] [address], [place] Glucose [Mass/Vol] 111 mg/dL High 70-100 [facility] Comment on above: Order Comment: No: D o not add to previous draw Performed By: #### 0 0121, 43359, 18290, 57092, 11791 #### [facility] [address] [place] [address], [place] Potassium [Moles/Vol] 3.9 mmol/L Normal 3.5-5.1 The [facility] Comment on above: Order Comment: No: D o not add to previous draw Performed By: #### 0 0121, 67433, 73533, 34414, 08548 #### [facility] [address] [place] [address], [place] Sodium [Moles/Vol] 137 mmol/L Normal 136-[address] [facility] Comment on above: Order Comment: No: D o not add to previous draw Performed By: #### 0 0121, 23766, 88390, 17869, 77908 #### [facility] [address] [place] [address], [place] Urea nitrogen [Mass/Vol] 26 mg/dL High 7-25 [facility] Comment on above: Order Comment: No: D o not add to previous draw Performed By: #### 0 0121, 15923, 85979, 78823, 28650 #### [facility] [address] CBC W/DIFFon 03-26-2019 ABS BASOPHILS 0.1 10*3/uL Normal 0.0-0.2 [facility] Comment on above: Order Comment: No: D o not add to previous draw Performed By: #### 0 0121, 52634, 91729, 32696, 20771 #### [facility] [address] ABS IMM GRANS 0.5 10*3/uL High 0.0-0.2 [facility] Comment on above: Order Comment: No: D o not add to previous draw Performed By: #### 0 0121, 48105, 84036, 32108, 97551 #### [facility] [address] [facility]. [address] ABS NEUTROPHILS 10.2 10*3/uL High 1.6-7.6 The [facility] Comment on above: Order Comment: No: D o not add to previous draw Performed By: #### 0 0121, 33597, 87427, 50514, 49199 #### [facility] [address] [facility]. [address] Basophils/100 WBC (Bld) 0.6 % Normal 0.0-1.0 The [facility] Comment on above: Order Comment: No: D o not add to previous draw Performed By: #### 0 0121, 60770, 91216, 77041, 21372 #### [facility] [address] [place] [address], [facility] Eosinophils (Bld) [#/Vol] 0.4 10*3/uL Normal 0.0-0.5 The [facility] Comment on above: Order Comment: No: D o not add to previous draw Performed By: #### 0 0121, 42422, 09691, 10706, 41888 #### [facility] [address] [place] [address], [facility] Eosinophils/100 WBC (Bld) 2.8 % Normal 0.0-6.0 The [facility] Comment on above: Order Comment: No: D o not add to previous draw Performed By: #### 0 0121, 02050, 93237, 69853, 36689 #### [facility] [address] [place] [address], [facility] Erythrocyte distribution width (RBC) [Ratio] 13.6 % Normal 11.5-15.0 The [facility] Comment on above: Order Comment: No: D o not add to previous draw Performed By: #### 0 0121, 80292, 57913, 19426, 30111 #### [facility] [address] [place] [address], [facility] Hematocrit (Bld) [Volume fraction] 34.5 % Low 39.0-50.0 The [facility] Comment on above: Order Comment: No: D o not add to previous draw Performed By: #### 0 0121, 08065, 25074, 56023, 83996 #### [facility] [address] Hemoglobin (Bld) [Mass/Vol] 11.3 g/dL Low 13.0-17.0 [facility] Comment on above: Order Comment: No: D o not add to previous draw Performed By: #### 0 0121, 99300, 27472, 82525, 47994 #### [facility] [address] [place] [address], [facility] IMMATURE GRANS 3.5 % High 0.0-1.0 [facility] Comment on above: Order Comment: No: D o not add to previous draw Performed By: #### 0 0121, 53502, 79171, 94666, 43627 #### [facility] [address] [place] [address], [facility] Lymphocytes (Bld) [#/Vol] 1.3 10*3/uL Normal 1.2-4.0 The [facility] Comment on above: Order Comment: No: D o not add to previous draw Performed By: #### 0 0121, 81631, 06145, 60486, 77952 #### [facility] [address] [place] [address], [facility] Lymphocytes/100 WBC (Bld) 9.2 % Low 20.0-45.0 The [facility] Comment on above: Order Comment: No: D o not add to previous draw Performed By: #### 0 0121, 17250, 69045, 64330, 41689 #### [facility] [address] [facility] [place] [address], [facility] MCH (RBC) [Entitic mass] 28.9 pg Normal 27.0-33.0 The [facility] Comment on above: Order Comment: No: D o not add to previous draw Performed By: #### 0 0121, 60146, 38284, 69230, 87915 #### [facility] [address] [place] [address], [facility] MCHC (RBC) [Mass/Vol] 32.8 g/dL Normal 32.0-35.0 The [facility] Comment on above: Order Comment: No: D o not add to previous draw Performed By: #### 0 0121, 90326, 93527, 68804, 92704 #### [facility] [address] [facility] [place] [address], [facility] MCV (RBC) [Entitic vol] 88.2 fL Normal 82.0-98.0 The [facility] Comment on above: Order Comment: No: D o not add to previous draw Performed By: #### 0 0121, 12630, 80695, 42928, 35141 #### [facility] [address] [place] [address], [facility] Monocytes (Bld) [#/Vol] 1.7 10*3/uL High 0.1-1.0 The [facility] Comment on above: Order Comment: No: D o not add to previous draw Performed By: #### 0 0121, 90143, 63253, 23517, 83037 #### [facility] [address] [place] [address], [place] MONOS 11.7 % Normal 5.0-12.0 [facility] Comment on above: Order Comment: No: D o not add to previous draw Performed By: #### 0 0121, 18335, 19609, 45259, 82234 #### [facility] [address] [place] [address], [facility] Neutrophils/100 WBC (Bld) 72.2 % High 40.0-72.0 The [facility] Comment on above: Order Comment: No: D o not add to previous draw Performed By: #### 0 0121, 49750, 56205, 35586, 42551 #### [facility] [address] [place] [address], [place] [facility] Nucle[facility]/100 WBC (Bld) [Ratio] 0 % Normal 0-0 [facility] Comment on above: Order Comment: No: D o not add to previous draw Performed By: #### 0 0121, 41836, 83058, 20403, 59324 #### [facility] [address] [place] [address], [place] PLAT CNT 215 10*3/uL Normal 150-400 The [facility] Comment on above: Order Comment: No: D o not add to previous draw Performed By: #### 0 0121, 81500, 43103, 70259, 38172 #### [facility] [address] [place] [address], [place] RBC (Bld) [#/Vol] 3.91 10*6/uL Low 4.20-5.[address] [facility] Comment on above: Order Comment: No: D o not add to previous draw Performed By: #### 0 0121, 84248, 91678, 89696, 92658 #### [facility] [address] [place] [address], [place] WBC (Bld) [#/Vol] 14.17 10*3/uL High 4.00-10.60 The [facility] Comment on above: Order Comment: No: D o not add to previous draw Performed By: #### 0 0121, 02816, 49130, 43056, 86759 #### [facility] [address] [place] [address], [place] POC GLUCOSE LABon 03-26-2019 Glucose [Mass/Vol] 129 mg/dL High 70-[address] [facility] Comment on above: Performed By: #### 0 0121, 50678, 75204, 27391, 63050 #### [facility] [address] [place] [address], [place] Glucose [Mass/Vol] 129 mg/dL High 70-[address] [facility] Comment on above: Performed By: #### 0 0121, 99332, 84980, 60512, 09556 #### [facility] [address] [place] [address], [place] Glucose [Mass/Vol] 130 mg/dL High 70-[address] [facility] Comment on above: Performed By: #### 0 0121, 07509, 67002, 46041, 45010 #### [facility] [address] [place] [address], [place] Glucose [Mass/Vol] 91 mg/dL Normal 70-[address] [facility] Comment on above: Performed By: #### 0 0121, 16317, 44722, 41983, 75129 #### [facility] [place], [place] [id number] [place] [address] PORTABLE CHEST 1 VIEWon 03-01 PORTABLE CHEST 1 VIEW [facility] Department of Radiology [address] [place] [id number] ======== Patient Name: TRACIE CRAIN : 1965 Sex: M Age: Race: NA Pt. Location: [id number] Patient Status: I Ordered Date: 03/26/2019 7:00:00 [...] findings. Electronically signed by:Divya Collins. Transcribed by: [email or web address], User Resident: KAREEM LIAO Electronically Signed by: DIVYA COLLINS @ 03/26/2019 10:03 AM I personally read this/these film(s) with this resident Normal The [facility] Comment on above: Order Comment: No: D o not add to previous draw BASIC METABOLIC PANELon 03-01 Calcium [Mass/Vol] 9.1 mg/dL Normal 8.6-10.3 [facility] Comment on above: Order Comment: << On admission If not done in ED>> No: Do not add to previous draw Performed By: #### 0 0121, 42251, 06685, 74980, 21477 #### [facility] [address] [place] [address], [facility] Chloride [Moles/Vol] 98 mmol/L Normal 98-107 [facility] Comment on above: Order Comment: << On admission If not done in ED>> No: Do not add to previous draw Performed By: #### 0 0121, 79517, 98416, 37020, 48445 #### [facility] [address] [place] [address], [place] CO2 [Moles/Vol] 29 mmol/L Normal 21-31 [facility] Comment on above: Order Comment: << On admission If not done in ED>> No: Do not add to previous draw Performed By: #### 0 0121, 41153, 74963, 26283, 96135 #### [facility] [address] [place] [address], [place] Creatinine [Mass/Vol] 1.01 mg/dL Normal 0.70-1.30 The [facility] Comment on above: Order Comment: << On admission If not done in ED>> No: Do not add to previous draw Performed By: #### 0 0121, 51077, 29496, 62064, 59997 #### [facility] [address] [place] [address], [facility] GFR/1.73 sq M predicted among blacks MDRD (S/P/Bld) [Vol rate/Area] mL/min/{1.73_m2} Normal >60 The [facility] Comment on above: Order Comment: << On admission If not done in ED>> No: Do not add to previous draw Performed By: #### 0 0121, 27969, 51120, 46429, 81617 #### [facility] [address] [place] [address], [facility] GFR/1.73 sq M predicted among non-blacks MDRD (S/P/Bld) [Vol rate/Area] mL/min/{1.73_m2} Normal >60 The [facility] Comment on above: Order Comment: << On admission If not done in ED>> No: Do not add to previous draw Performed By: #### 0 0121, 57050, 64128, 55005, 92972 #### [facility] [address] [place] [address], [facility] Glucose [Mass/Vol] 123 mg/dL High 70-[address] [facility] Comment on above: Order Comment: << On admission If not done in ED>> No: Do not add to previous draw Performed By: #### 0 0121, 01394, 08983, 12304, 28237 #### [facility] [address] [place] [address], [place] Potassium [Moles/Vol] 3.9 mmol/L Normal 3.5-5.1 [facility] Comment on above: Order Comment: << On admission If not done in ED>> No: Do not add to previous draw Performed By: #### 0 0121, 29325, 08262, 57301, 39376 #### [facility] [address] Sodium [Moles/Vol] 134 mmol/L Low 136-[address] [facility] Comment on above: Order Comment: << On admission If not done in ED>> No: Do not add to previous draw Performed By: #### 0 0121, 45293, 78588, 45540, 29291 #### [facility] [address] Urea nitrogen [Mass/Vol] 29 mg/dL High 7-25 The [facility] Comment on above: Order Comment: << On admission If not done in ED>> No: Do not add to previous draw Performed By: #### 0 0121, 85019, 71816, 59819, 02068 #### [facility] [address] CBC W/DIFFon 03-25-2019 ABS BASOPHILS 0.1 10*3/uL Normal 0.0-0.2 The [facility] Comment on above: Order Comment: << On admission If not done in ED>> No: Do not add to previous draw Performed By: #### 0 0121, 45862, 15453, 28403, 45999 #### [facility] [address] ABS NEUTROPHILS 11.2 10*3/uL High 1.6-7.6 The [facility] Comment on above: Order Comment: << On admission If not done in ED>> No: Do not add to previous draw Performed By: #### 0 0121, 11629, 11563, 87048, 12320 #### [facility] [address] [place] [address], [facility] Basophils/100 WBC (Bld) 0.9 % Normal 0.0-1.0 The [facility] Comment on above: Order Comment: << On admission If not done in ED>> No: Do not add to previous draw Performed By: #### 0 0121, 44620, 40831, 53785, 95057 #### [facility] [address] [place] [address], [facility] Eosinophils (Bld) [#/Vol] 0.1 10*3/uL Normal 0.0-0.5 [facility] Comment on above: Order Comment: << On admission If not done in ED>> No: Do not add to previous draw Performed By: #### 0 0121, 09640, 02230, 02836, 30322 #### [facility] [address] Eosinophils/100 WBC (Bld) 0.9 % Normal 0.0-6.0 The [facility] Comment on above: Order Comment: << On admission If not done in ED>> No: Do not add to previous draw Performed By: #### 0 0121, 06202, 23326, 97397, 02255 #### [facility] [address] [facility] Erythrocyte distribution width (RBC) [Ratio] 13.4 % Normal 11.5-15.0 [facility] Comment on above: Order Comment: << On admission If not done in ED>> No: Do not add to previous draw Performed By: #### 0 0121, 92130, 80262, 18882, 28135 #### [facility] [address] [facility]. [address] GIANT PLATELETS Present Normal The [facility] Comment on above: Order Comment: << On admission If not done in ED>> No: Do not add to previous draw Performed By: #### 0 0121, 36213, 42083, 39204, 52880 #### [facility] [address] Hematocrit (Bld) [Volume fraction] 35.4 % Low 39.0-50.0 [facility] Comment on above: Order Comment: << On admission If not done in ED>> No: Do not add to previous draw Performed By: #### 0 0121, 45430, 36248, 22361, 52385 #### [facility] [address] [place] [address], [facility] Hemoglobin (Bld) [Mass/Vol] 11.1 g/dL Low 13.0-17.0 The [facility] Comment on above: Order Comment: << On admission If not done in ED>> No: Do not add to previous draw Performed By: #### 0 0121, 57782, 68676, 81529, 98301 #### [facility] [address] [facility] [place] [address], [facility] Lymphocytes (Bld) [#/Vol] 0.8 10*3/uL Low 1.2-4.0 The [facility] Comment on above: Order Comment: << On admission If not done in ED>> No: Do not add to previous draw Performed By: #### 0 0121, 12114, 59134, 57304, 83101 #### [facility] [address] [facility] [place] [address], [facility] Lymphocytes/100 WBC (Bld) 6.3 % Low 20.0-45.0 The [facility] Comment on above: Order Comment: << On admission If not done in ED>> No: Do not add to previous draw Performed By: #### 0 0121, 09701, 90508, 86908, 80628 #### [facility] [address] [facility] [place] [address], [facility] MCH (RBC) [Entitic mass] 28.8 pg Normal 27.0-33.0 The [facility] Comment on above: Order Comment: << On admission If not done in ED>> No: Do not add to previous draw Performed By: #### 0 0121, 17753, 99802, 32888, 27941 #### [facility] [address] [place] [address], [facility] MCHC (RBC) [Mass/Vol] 31.4 g/dL Low 32.0-35.0 The [facility] Comment on above: Order Comment: << On admission If not done in ED>> No: Do not add to previous draw Performed By: #### 0 0121, 71143, 46963, 09125, 43772 #### [facility] [address] [place] [address], [facility] MCV (RBC) [Entitic vol] 91.9 fL Normal 82.0-98.0 The [facility] Comment on above: Order Comment: << On admission If not done in ED>> No: Do not add to previous draw Performed By: #### 0 0121, 63843, 72910, 74168, 06712 #### [facility] [address] [place] [address], [facility] Monocytes (Bld) [#/Vol] 0.7 10*3/uL Normal 0.1-1.0 The [facility] Comment on above: Order Comment: << On admission If not done in ED>> No: Do not add to previous draw Performed By: #### 0 0121, 75095, 59520, 66845, 73431 #### [facility] [address] [place] [address], [facility] MONOS 5.4 % Normal 5.0-12.0 [facility] Comment on above: Order Comment: << On admission If not done in ED>> No: Do not add to previous draw Performed By: #### 0 0121, 93235, 68541, 33739, 64552 #### [facility] [address] [place] [address], [facility] MYELOS 0.9 % High .0-.0 [facility] Comment on above: Order Comment: << On admission If not done in ED>> No: Do not add to previous draw Performed By: #### 0 0121, 22085, 78185, 36182, 80375 #### [facility] [address] [place] [id number], [place] Neutrophils/100 WBC (Bld) 85.6 % High 40.0-72.0 [facility] Comment on above: Order Comment: << On admission If not done in ED>> No: Do not add to previous draw Performed By: #### 0 0121, 26679, 54306, 69547, 44425 #### [facility] [address] [place] [address], [place] Nucleated RBC/100 WBC (Bld) [Ratio] 0 % Normal 0-0 [facility] Comment on above: Order Comment: << On admission If not done in ED>> No: Do not add to previous draw Performed By: #### 0 0121, 76640, 91608, 73398, 17980 #### [facility] [address] [place] [address], [place] PLAT CNT 196 10*3/uL Normal 150-400 [facility] Comment on above: Order Comment: << On admission If not done in ED>> No: Do not add to previous draw Performed By: #### 0 0121, 18695, 84195, 18880, 80825 #### [facility] [address] [place] [address], [facility] RBC (Bld) [#/Vol] 3.85 10*6/uL Low 4.20-5.[address] [facility] Comment on above: Order Comment: << On admission If not done in ED>> No: Do not add to previous draw Performed By: #### 0 0121, 04594, 06096, 87295, 01688 #### [facility] [address] [place] [address], [place] WBC (Bld) [#/Vol] 13.09 10*3/uL High 4.00-10.60 [facility] Comment on above: Order Comment: << On admission If not done in ED>> No: Do not add to previous draw Performed By: #### 0 0121, 43952, 06436, 56310, 65193 #### [facility] [address] [place] [address], [place] MAGNESIUM BLOODon 03-25-2019 Magnesium [Mass/Vol] 2.3 mg/dL Normal 1.9-2.7 The [facility] Comment on above: Order Comment: << On admission If not done in ED>> No: Do not add to previous draw Performed By: #### 0 0121, 15995, 15795, 42828, 72426 #### [facility] [address] [place] [address], [place] PHOSPHORUS BLOODon 9 Phosphate [Mass/Vol] 2.6 mg/dL Normal 2.5-5.0 The [facility] Comment on above: Order Comment: << On admission If not done in ED>> No: Do not add to previous draw Performed By: #### 0 0121, 70713, 02242, 28148, 77559 #### [facility] [address] [place] [address], [place] POC GLUCOSE LABon 03-25-2019 Glucose [Mass/Vol] 103 mg/dL High 70-100 [facility] Comment on above: Performed By: #### 0 0121, 23027, 77814, 04667, 85544 #### [facility] [address] [place] [address], [place] Glucose [Mass/Vol] 113 mg/dL High 70-100 [facility] Comment on above: Performed By: #### 0 0121, 47768, 54437, 17533, 43987 #### [facility] [address] [place] [address], [place] Glucose [Mass/Vol] 120 mg/dL High 70-100 [facility] Comment on above: Performed By: #### 0 0121, 13974, 08912, 96385, 95865 #### [facility] [address] [place] [address], [place] Glucose [Mass/Vol] 110 mg/dL High 70-100 [facility] Comment on above: Performed By: #### 0 0121, 26780, 30427, 91051, 33960 #### [address] PORTABLE CHEST 1 VIEWon 03-01 PORTABLE CHEST 1 VIEW [facility] Department of Radiology [address] [place] [phone] ======== Patient Name: TRACIE CRAIN : 1965 Sex: M Age: Race: NA Pt. Location: [id number] Patient Status: I Ordered Date: 03/25/2019 7:00:00 [...] findings. Electronically signed by:Divya Collins. Transcribed by: [email or web address], User Resident: KAREEM LIAO Electronically Signed by: DIVYA COLLINS @ 03/25/2019 11:10 AM I personally read this/these film(s) with this resident Normal The [facility] Comment on above: Order Comment: No: D o not add to previous draw BASIC METABOLIC PANELon 03-01 Calcium [Mass/Vol] 9.0 mg/dL Normal 8.6-10.3 [facility] Comment on above: Order Comment: << On admission If not done in ED>> No: Do not add to previous draw Performed By: #### 0 0121, 31604, 15843, 43072, 64996 #### [facility] [address] [place] [address], [facility] Chloride [Moles/Vol] 96 mmol/L Low 98-107 [facility] Comment on above: Order Comment: << On admission If not done in ED>> No: Do not add to previous draw Performed By: #### 0 0121, 80020, 72930, 29636, 89915 #### [facility] [address] [place] [address], [place] CO2 [Moles/Vol] 30 mmol/L Normal 21-31 The [facility] Comment on above: Order Comment: << On admission If not done in ED>> No: Do not add to previous draw Performed By: #### 0 0121, 29563, 66579, 29392, 65506 #### [facility] [address] [place] [address], [place] Creatinine [Mass/Vol] 0.89 mg/dL Normal 0.70-1.30 [facility] Comment on above: Order Comment: << On admission If not done in ED>> No: Do not add to previous draw Performed By: #### 0 0121, 30489, 78121, 50926, 49655 #### [facility] [address] [place] [address], [facility] GFR/1.73 sq M predicted among blacks MDRD (S/P/Bld) [Vol rate/Area] mL/min/{1.73_m2} Normal >60 The [facility] Comment on above: Order Comment: << On admission If not done in ED>> No: Do not add to previous draw Performed By: #### 0 0121, 36513, 83777, 56997, 54565 #### [facility] [address] [place] [address], [facility] GFR/1.73 sq M predicted among non-blacks MDRD (S/P/Bld) [Vol rate/Area] mL/min/{1.73_m2} Normal >60 The [facility] Comment on above: Order Comment: << On admission If not done in ED>> No: Do not add to previous draw Performed By: #### 0 0121, 65885, 70604, 96018, 22724 #### [facility] [address] [place] [address], [facility] Glucose [Mass/Vol] 98 mg/dL Normal 70-[address] [facility] Comment on above: Order Comment: << On admission If not done in ED>> No: Do not add to previous draw Performed By: #### 0 0121, 86097, 97652, 54970, 98650 #### [facility] [address] [place] [address], [facility] Potassium [Moles/Vol] 3.2 mmol/L Low 3.5-5.1 The [facility] Comment on above: Order Comment: << On admission If not done in ED>> No: Do not add to previous draw Performed By: #### 0 0121, 11272, 86277, 43384, 70737 #### [facility] [address] Sodium [Moles/Vol] 135 mmol/L Low 136-[address] [facility] Comment on above: Order Comment: << On admission If not done in ED>> No: Do not add to previous draw Performed By: #### 0 0121, 48679, 59719, 25426, 77005 #### [facility] [address] Urea nitrogen [Mass/Vol] 29 mg/dL High 7-25 [facility] Comment on above: Order Comment: << On admission If not done in ED>> No: Do not add to previous draw Performed By: #### 0 0121, 67624, 76112, 45773, 05357 #### [facility] [address] CBC W/DIFFon 03-24-2019 ABS BASOPHILS 0.1 10*3/uL Normal 0.0-0.2 The [facility] Comment on above: Order Comment: << On admission If not done in ED>> No: Do not add to previous draw Performed By: #### 0 0121, 09573, 21608, 78972, 83837 #### [facility] [address] ABS IMM GRANS 0.1 10*3/uL Normal 0.0-0.2 The [facility] Comment on above: Order Comment: << On admission If not done in ED>> No: Do not add to previous draw Performed By: #### 0 0121, 47971, 68487, 23195, 74927 #### [facility] [address] ABS NEUTROPHILS 6.9 10*3/uL Normal 1.6-7.[address] [facility] Comment on above: Order Comment: << On admission If not done in ED>> No: Do not add to previous draw Performed By: #### 0 0121, 20488, 99645, 19317, 28584 #### [facility] [address] [place] [address], [facility] Basophils/100 WBC (Bld) 0.8 % Normal 0.0-1.0 The [facility] Comment on above: Order Comment: << On admission If not done in ED>> No: Do not add to previous draw Performed By: #### 0 0121, 27263, 25966, 40616, 84060 #### [facility] [address] [place] [address], [facility] Eosinophils (Bld) [#/Vol] 0.3 10*3/uL Normal 0.0-0.5 The [facility] Comment on above: Order Comment: << On admission If not done in ED>> No: Do not add to previous draw Performed By: #### 0 0121, 25546, 44181, 83031, 43545 #### [facility] [address] [place] [address], [facility] Eosinophils/100 WBC (Bld) 2.8 % Normal 0.0-6.0 The [facility] Comment on above: Order Comment: << On admission If not done in ED>> No: Do not add to previous draw Performed By: #### 0 0121, 86216, 80963, 04769, 99526 #### [facility] [address] [place] [address], [place] Erythrocyte distribution width (RBC) [Ratio] 13.5 % Normal 11.5-15.0 The [facility] Comment on above: Order Comment: << On admission If not done in ED>> No: Do not add to previous draw Performed By: #### 0 0121, 42411, 57950, 26656, 77506 #### [facility] [address] [place] [address] [place] [address] Hematocrit (Bld) [Volume fraction] 33.0 % Low 39.0-50.0 The [facility] Comment on above: Order Comment: << On admission If not done in ED>> No: Do not add to previous draw Performed By: #### 0 0121, 13474, 38534, 71533, 48422 #### [facility] [address] [place] [address], [facility] Hemoglobin (Bld) [Mass/Vol] 10.4 g/dL Low 13.0-17.0 The [facility] Comment on above: Order Comment: << On admission If not done in ED>> No: Do not add to previous draw Performed By: #### 0 0121, 15260, 44334, 66722, 25261 #### [facility] [address] IMMATURE GRANS 1.2 % High 0.0-1.0 The [facility] Comment on above: Order Comment: << On admission If not done in ED>> No: Do not add to previous draw Performed By: #### 0 0121, 94029, 95480, 64154, 61073 #### [facility] [address] [facility] [address] Lymphocytes (Bld) [#/Vol] 1.5 10*3/uL Normal 1.2-4.0 The [facility] Comment on above: Order Comment: << On admission If not done in ED>> No: Do not add to previous draw Performed By: #### 0 0121, 49103, 00843, 33306, 87170 #### [facility] [address] [place] [address], [facility] Lymphocytes/100 WBC (Bld) 14.4 % Low 20.0-45.0 The [facility] Comment on above: Order Comment: << On admission If not done in ED>> No: Do not add to previous draw Performed By: #### 0 0121, 33327, 49013, 45843, 83144 #### [facility] [address] MCH (RBC) [Entitic mass] 28.8 pg Normal 27.0-33.0 The [facility] Comment on above: Order Comment: << On admission If not done in ED>> No: Do not add to previous draw Performed By: #### 0 0121, 29912, 46805, 68207, 75993 #### [facility] [address] MCHC (RBC) [Mass/Vol] 31.5 g/dL Low 32.0-35.0 The [facility] Comment on above: Order Comment: << On admission If not done in ED>> No: Do not add to previous draw Performed By: #### 0 0121, 85087, 75870, 89601, 53165 #### [facility] [address] MCV (RBC) [Entitic vol] 91.4 fL Normal 82.0-98.0 The [facility] Comment on above: Order Comment: << On admission If not done in ED>> No: Do not add to previous draw Performed By: #### 0 0121, 43982, 78753, 87782, 30230 #### [facility] [address] Monocytes (Bld) [#/Vol] 1.3 10*3/uL High 0.1-1.0 The [facility] Comment on above: Order Comment: << On admission If not done in ED>> No: Do not add to previous draw Performed By: #### 0 0121, 53140, 96957, 14494, 31899 #### [facility] [address] MONOS 13.1 % High 5.0-12.0 The [facility] Comment on above: Order Comment: << On admission If not done in ED>> No: Do not add to previous draw Performed By: #### 0 0121, 95315, 25135, 85350, 65504 #### [facility] [address] [place] [address], [place] Neutrophils/100 WBC (Bld) 67.7 % Normal 40.0-72.0 [facility] Comment on above: Order Comment: << On admission If not done in ED>> No: Do not add to previous draw Performed By: #### 0 0121, 12165, 90098, 70305, 93398 #### [facility] [address] [place] [address], [place] Nucleated RBC/100 WBC (Bld) [Ratio] 0 % Normal 0-0 The [facility] Comment on above: Order Comment: << On admission If not done in ED>> No: Do not add to previous draw Performed By: #### 0 0121, 64750, 46329, 96597, 96298 #### [facility] 3000 [facility] [place] [address], [place] PLAT CNT 166 10*3/uL Normal 150-400 [facility] Comment on above: Order Comment: << On admission If not done in ED>> No: Do not add to previous draw Performed By: #### 0 0121, 28957, 77253, 63010, 03361 #### [facility] [address] [place] [address], [facility] RBC (Bld) [#/Vol] 3.61 10*6/uL Low 4.20-5.[address] [facility] Comment on above: Order Comment: << On admission If not done in ED>> No: Do not add to previous draw Performed By: #### 0 0121, 53632, 25261, 15216, 38172 #### [facility] [address] [place] [address], [place] WBC (Bld) [#/Vol] 10.21 10*3/uL Normal 4.00-10.60 [facility] Comment on above: Order Comment: << On admission If not done in ED>> No: Do not add to previous draw Performed By: #### 0 0121, 96986, 27940, 30582, 07073 #### [facility] [address] [place] [address], [facility] MAGNESIUM BLOODon 03-24-2019 Magnesium [Mass/Vol] 2.4 mg/dL Normal 1.9-2.7 The [facility] Comment on above: Order Comment: << On admission If not done in ED>> No: Do not add to previous draw Performed By: #### 0 0121, 19614, 58110, 48315, 71078 #### [facility] [address] [place] [address], [facility] PHOSPHORUS BLOODon 9 Phosphate [Mass/Vol] 2.9 mg/dL Normal 2.5-5.0 The [facility] Comment on above: Order Comment: << On admission If not done in ED>> No: Do not add to previous draw Performed By: #### 0 0121, 57848, 75474, 87284, 69270 #### [facility] [address] [place] [address], [facility] POC GLUCOSE LABon 03-24-2019 Glucose [Mass/Vol] 107 mg/dL High 70-[address] [facility] Comment on above: Performed By: #### 0 0121, 22573, 10725, 85396, 94313 #### [facility] [address] [place] [address], [facility] PORTABLE CHEST 1 VIEWon 03-01 PORTABLE CHEST 1 VIEW [facility] Department of Radiology [address] [place] [address] ======== Patient Name: TRACIE CRAIN : 1965 Sex: M Age: Race: NA Pt. Location: [id number] Patient Status: I Ordered Date: 03/24/2019 4:00:00 [...] recommended. Electronically signed by:Scottie Fall. Transcribed by: [email or web address], User Resident: Electronically Signed by: SCOTTIE FALL @ 03/24/2019 10:43 AM Normal [facility] Comment on above: Order Comment: << On admission If not done in ED>> No: Do not add to previous draw POC GLUCOSE LABon 03-23-2019 Glucose [Mass/Vol] 150 mg/dL High 70-100 [facility] Comment on above: Performed By: #### 0 0121, 96495, 76391, 50085, 64763 #### [facility] [address] [place] [address], [place] Glucose [Mass/Vol] 110 mg/dL High 70-[address] [facility] Comment on above: Performed By: #### 0 0121, 68853, 71745, 31262, 00694 #### [facility] [address] [place] [address], [place] Glucose [Mass/Vol] 112 mg/dL High 70-[address] [facility] Comment on above: Performed By: #### 0 0121, 45127, 08970, 01515, 37054 #### [facility] [address] [place] [address], [place] Glucose [Mass/Vol] 93 mg/dL Normal 70-[address] [facility] Comment on above: Performed By: #### 0 0121, 61058, 03130, 73644, 69825 #### [facility] [address] [place] [address], [place] ARTERIAL BLOOD GAS WITH ICAo n 03-22-2019 BASE EXCESS 4 mmol/L High -2-3 [facility] Comment on above: Performed By: #### 0 0121, 90706, 14097, 43811, 27796 #### [facility] [address] [place] [address], [place] [employer] NASAL CANNULA Normal [facility] Comment on above: Performed By: #### 0 0121, 37498, 80387, 44191, 08714 #### [facility] [address] [place] [address], [place] HCO3 (Bld) [Moles/Vol] 27 mmol/L Normal 21-28 [facility] Comment on above: Performed By: #### 0 0121, 07778, 12042, 79741, 72694 #### [facility] [address] [place] [address], [place] IONIZED CALCIUM 1.14 mmol/L Normal 1.13-1.[address] [facility] Comment on above: Performed By: #### 0 0121, 73095, 15398, 36035, 65780 #### [facility] [address] [place] [address], [place] LPM 6.0 LPM Normal [facility] Comment on above: Performed By: #### 0 0121, 39972, 04314, 01543, 90389 #### [facility] [address] [place] [address], [place] Oxygen (Bld) [Partial pressure] 70 mm[Hg] Low 83-108 [facility] Comment on above: Performed By: #### 0 0121, 04679, 68142, 14937, 18327 #### [facility] [address] [place] [address], [facility] Oxygen saturation in Blood 93.0 % Low 94.0-97.0 [facility] Comment on above: Performed By: #### 0 0121, 96213, 04316, 16409, 04567 #### [facility] [address] [place] [address], [facility] PCO2 35 mmHg Normal 35-45 The [facility] Comment on above: Performed By: #### 0 0121, 91007, 92694, 07797, 62708 #### [facility] [address] [place] [address], [place] pH (Bld) 7.50 [pH] High 7.35-7.45 The [facility] Comment on above: Result Comment: KINJAL REYNOSO NOTE: Effective 12/02/18, reference ranges for Respiratory GEM analyzers running arterial blood have been updated to reflect the employment advisor's published reference ranges. Performed By: #### 0 0121, 06745, 32982, 79304, 95796 #### [facility] [address] [place] [address], [facility] BASIC METABOLIC PANELon - Calcium [Mass/Vol] 8.9 mg/dL Normal 8.6-10.3 [facility] Comment on above: Order Comment: << On admission If not done in ED>> No: Do not add to previous draw Performed By: #### 0 0121, 48415, 68103, 37078, 58435 #### [facility] [address] [place] [address], [facility] Chloride [Moles/Vol] 101 mmol/L Normal 98-107 The [facility] Comment on above: Order Comment: << On admission If not done in ED>> No: Do not add to previous draw Performed By: #### 0 0121, 92384, 68686, 72984, 38602 #### [facility] [address] [place] [address], [facility] CO2 [Moles/Vol] 28 mmol/L Normal 21-31 [facility] Comment on above: Order Comment: << On admission If not done in ED>> No: Do not add to previous draw Performed By: #### 0 0121, 94938, 21559, 23624, 35928 #### [facility] [address] [place] [address], [facility] Creatinine [Mass/Vol] 1.29 mg/dL Normal 0.70-1.30 [facility] Comment on above: Order Comment: << On admission If not done in ED>> No: Do not add to previous draw Performed By: #### 0 0121, 29237, 96217, 08653, 47762 #### [facility] [address] [facility] [place] [address], [facility] GFR/1.73 sq M predicted among blacks MDRD (S/P/Bld) [Vol rate/Area] mL/min/{1.73_m2} Normal >60 [facility] Comment on above: Order Comment: << On admission If not done in ED>> No: Do not add to previous draw Performed By: #### 0 0121, 35985, 70066, 41869, 91528 #### [facility] [address] [place] [address], [facility] GFR/1.73 sq M predicted among non-blacks MDRD (S/P/Bld) [Vol rate/Area] 58 ml/min/1.73sq m Abnormal >60 [facility] Comment on above: Order Comment: << On admission If not done in ED>> No: Do not add to previous draw Performed By: #### 0 0121, 50004, 64365, 98631, 76409 #### [facility] [address] [place] [address], [facility] Glucose [Mass/Vol] 111 mg/dL High 70-[address] [facility] Comment on above: Order Comment: << On admission If not done in ED>> No: Do not add to previous draw Performed By: #### 0 0121, 27411, 42477, 40207, 34899 #### [facility] [address] [place] [address], [facility] Sodium [Moles/Vol] 139 mmol/L Normal 136-[address] [facility] Comment on above: Order Comment: << On admission If not done in ED>> No: Do not add to previous draw Performed By: #### 0 0121, 01939, 27504, 86052, 51888 #### [facility] [address] [place] [address], [place] Urea nitrogen [Mass/Vol] 23 mg/dL Normal 7-25 The [facility] Comment on above: Order Comment: << On admission If not done in ED>> No: Do not add to previous draw Performed By: #### 0 0121, 44870, 00026, 23700, 39174 #### [facility] [address] [place] [address], [facility] CBC COMPLETE BLOOD COUNTon 0 03-22-2019 Erythrocyte distribution width (RBC) [Ratio] 13.4 % Normal 11.5-15.0 [facility] Comment on above: Order Comment: << On admission If not done in ED>> No: Do not add to previous draw Performed By: #### 0 0121, 43228, 54417, 87725, 20827 #### [facility] [address] [place] [address], [facility] Hematocrit (Bld) [Volume fraction] 31.2 % Low 39.0-50.0 The [facility] Comment on above: Order Comment: << On admission If not done in ED>> No: Do not add to previous draw Performed By: #### 0 0121, 21659, 77273, 45592, 86636 #### [facility] [address] [place] [address], [facility] Hemoglobin (Bld) [Mass/Vol] 10.3 g/dL Low 13.0-17.0 The [facility] Comment on above: Order Comment: << On admission If not done in ED>> No: Do not add to previous draw Performed By: #### 0 0121, 57041, 14915, 02610, 43464 #### [facility] [address] [place] [address], [facility] MCH (RBC) [Entitic mass] 28.9 pg Normal 27.0-33.0 [facility] Comment on above: Order Comment: << On admission If not done in ED>> No: Do not add to previous draw Performed By: #### 0 0121, 72351, 56869, 95793, 65753 #### [facility] [address] [place] [address], [facility] MCHC (RBC) [Mass/Vol] 33.0 g/dL Normal 32.0-35.0 [facility] Comment on above: Order Comment: << On admission If not done in ED>> No: Do not add to previous draw Performed By: #### 0 0121, 65138, 21467, 14838, 24933 #### [facility] [address] [facility] [place] [address], [facility] MCV (RBC) [Entitic vol] 87.4 fL Normal 82.0-98.0 [facility] Comment on above: Order Comment: << On admission If not done in ED>> No: Do not add to previous draw Performed By: #### 0 0121, 23332, 24068, 08367, 04580 #### [facility] [address] [facility] [place] [address], [facility] Nucleated RBC/100 WBC (Bld) [Ratio] 0 % Normal 0-0 [facility] Comment on above: Order Comment: << On admission If not done in ED>> No: Do not add to previous draw Performed By: #### 0 0121, 40197, 98019, 92819, 80693 #### [facility] [address] [facility] [address], [facility] PLAT CNT 88 10*3/uL Low 150-400 The [facility] Comment on above: Order Comment: << On admission If not done in ED>> No: Do not add to previous draw Performed By: #### 0 0121, 61206, 64334, 90665, 95138 #### [facility] [address] [place] [address], [facility] RBC (Bld) [#/Vol] 3.57 10*6/uL Low 4.20-5.[address] [facility] Comment on above: Order Comment: << On admission If not done in ED>> No: Do not add to previous draw Performed By: #### 0 0121, 87216, 31205, 21940, 93380 #### [facility] [address] [facility] [address], [facility] WBC (Bld) [#/Vol] 13.95 10*3/uL High 4.00-10.60 The [facility] Comment on above: Order Comment: << On admission If not done in ED>> No: Do not add to previous draw Performed By: #### 0 0121, 70903, 08523, 94075, 91273 #### [facility] [address] [place] [address], [place] COOXIMETRYon 03-22-2019 COHB 2 % Normal The [facility] Comment on above: Performed By: #### 0 0121, 69372, 64491, 56465, 77740 #### [facility] [address] [place] [address], [place] METHB 1 % Normal The [facility] Comment on above: Performed By: #### 0 0121, 35182, 32858, 99418, 33225 #### [facility] [address] [place] [address], [place] Oxygen saturation in Blood 56.5 % Low 65.0-75.0 [facility] Comment on above: Performed By: #### 0 0121, 58962, 72817, 80884, 51721 #### [facility] [address] [place] [address], [place] THB 9.9 g/dL Normal The [facility] Comment on above: Performed By: #### 0 0121, 95630, 99866, 47999, 83832 #### [facility] [address] [place] [address], [place] MAGNESIUM BLOODon 03-22-2019 Magnesium [Mass/Vol] 2.0 mg/dL Normal 1.9-2.7 The [facility] Comment on above: Order Comment: << On admission If not done in ED>> No: Do not add to previous draw Performed By: #### 0 0121, 72556, 22662, 55031, 50918 #### [facility] [address] [place] [address], [place] Magnesium [Mass/Vol] 1.9 mg/dL Normal 1.9-2.7 [facility] Comment on above: Order Comment: << On admission If not done in ED>> No: Do not add to previous draw Performed By: #### 0 0121, 31397, 43141, 02396, 31737 #### [facility] [address] [place] [address], [place] PHOSPHORUS BLOODon 9 Phosphate [Mass/Vol] 3.6 mg/dL Normal 2.5-5.0 [facility] Comment on above: Order Comment: << On admission If not done in ED>> No: Do not add to previous draw Performed By: #### 0 0121, 97470, 84570, 10659, 91721 #### [facility] [address] [place] [address], [place] POC GLUCOSE LABon 03-22-2019 Glucose [Mass/Vol] 111 mg/dL High 70-[address] [facility] Comment on above: Performed By: #### 0 0121, 56780, 23737, 20896, 29214 #### [facility] [address] [place] [address], [place] Glucose [Mass/Vol] 108 mg/dL High 70-[address] [facility] Comment on above: Performed By: #### 0 0121, 14274, 90731, 36188, 85881 #### [facility] [address] [place] [address], [place] Glucose [Mass/Vol] 109 mg/dL High 70-[address] [facility] Comment on above: Performed By: #### 0 0121, 28303, 61317, 09961, 67101 #### [facility] [address] [place] [address], [place] Glucose [Mass/Vol] 99 mg/dL Normal 70-[address] [facility] Comment on above: Performed By: #### 0 0121, 58824, 75786, 88569, 57333 #### [facility] [address] [place] [address], [facility] Glucose [Mass/Vol] 91 mg/dL Normal 70-[address] [facility] Comment on above: Performed By: #### 0 0121, 46074, 22765, 18099, 16599 #### [address] PORTABLE CHEST 1 VIEWon 03-01 PORTABLE CHEST 1 VIEW [facility] Department of Radiology [address] [place] [id number] ======== Patient Name: TRACIE CRAIN : 1965 Sex: M Age: Race: NA Pt. Location: [id number] Patient Status: I Ordered Date: 03/22/2019 5:00:00 [...] removal of endotracheal and enteric tubes. Right-sided Oto-Sher catheter is again seen with tip overlying [...] Small left pleural effusion, unchanged. 3. Right-sided Oto-Sher catheter with tip projecting over the pulmonary trunk, unchanged. 4. Redemonstration of 2 chest tubes on the right, unchanged. Approved by:Cynthia Finley on 03/22/2019 8:06 AM EDT. I, Yenni Osuna, have reviewed the images and report and concur with these findings. Electronically signed by:Yenni Osuna. Transcribed by: [email or web address], User Resident: CYNTHIA FINLEY Electronically Signed by: YENNI OSUNA @ 03/22/2019 01:07 PM I personally read this/these film(s) with this resident Normal The [facility] Comment on above: Order Comment: << On admission If not done in ED>> No: Do not add to previous draw POTASSIUM BLOODon 03-22-2019 Potassium [Moles/Vol] 3.1 mmol/L Low 3.5-5.1 [facility] Comment on above: Order Comment: << On admission If not done in ED>> No: Do not add to previous draw Performed By: #### 0 0121, 18536, 21623, 71024, 67391 #### [facility] [address] PROTHROMBIN TIMEon 9 INR Coag (PPP) [Relative time] 1.37 {INR} High 0.91-1.16 [facility] Comment on above: Order Comment: << On [...] CHEST 1995;[id number]. Performed By: #### 0 0121, 19872, 36846, 78589, 73573 #### [facility] [address] PT Coag (PPP) [Time] 16.9 s High 12.3-14.8 [facility] Comment on above: Order Comment: << On admission If not done in ED>> No: Do not add to previous draw Result Comment: ALL RESULTS MUST BE INTERPRETED WITH RESPECT TO BLOOD DRAWING ARTIFACT OR DILUTION ERROR OF ANTICOAGULANT AT THE TIME OF SAMPLING. Performed By: #### 0 0121, 33892, 47822, 78015, 25844 #### [facility] [address] [facility]. [address] ARTERIAL BLOOD GAS W/COOXon 03-21-2019 BASE EXCESS 1 mmol/L Normal -2-3 [facility] Comment on above: Performed By: #### 0 0121, 92340, 47277, 41352, 87627 #### [facility] [address] COHB 1.4 % Normal 0.0-1.5 [facility] Comment on above: Performed By: #### 0 0121, 21105, 39301, 17636, 29550 #### [facility] [address] [place] [address], [place] FIO2 40 % Normal The [facility] Comment on above: Performed By: #### 0 0121, 46025, 13389, 53863, 88506 #### [facility] [address] [place] [address], [place] HCO3 (Bld) [Moles/Vol] 24 mmol/L Normal 21-28 [facility] Comment on above: Performed By: #### 0 0121, 12888, 29672, 56937, 72402 #### [facility] [address] [place] [address], [place] METHB 1.1 % Normal 0.0-1.5 [facility] Comment on above: Performed By: #### 0 0121, 82361, 37098, 16260, 47560 #### [facility] [address] [place] [address], [place] MIN VOLUME 13.1 Normal The [facility] Comment on above: Performed By: #### 0 0121, 28008, 32277, 29171, 07848 #### [facility] [address] [place] [address], [place] MODALITY Positive Normal The [facility] Comment on above: Performed By: #### 0 0121, 23029, 22753, 16209, 39200 #### [facility] [address] [place] [address], [place] Oxygen (Bld) [Partial pressure] 86 mm[Hg] Normal 83-108 [facility] Comment on above: Performed By: #### 0 0121, 19842, 86919, 90780, 49869 #### [facility] [address] [place] [address], [place] Oxygen saturation in Blood 94.8 % Normal 94.0-97.0 [facility] Comment on above: Performed By: #### 0 0121, 34969, 63491, 29608, 98765 #### [facility] [address] [place] [address], [facility] PCO2 32 mmHg Low 35-45 [facility] Comment on above: Performed By: #### 0 0121, 97979, 96485, 79134, 43320 #### [facility] [address] [place] [address], [facility] PEEP 8.0 CMH20 Normal [facility] Comment on above: Performed By: #### 0 0121, 55851, 93977, 16205, 10356 #### [facility] [address] [place] [address], [facility] pH (Bld) 7.49 [pH] High 7.35-7.45 [facility] Comment on above: Result Comment: KINJAL REYNOSO NOTE: Effective 12/02/18, reference ranges for Respiratory GEM analyzers running arterial blood have been updated to reflect the employment advisor's published reference ranges. Performed By: #### 0 0121, 30679, 58968, 46709, 96544 #### [facility] [address] [place] [address], [facility] PRESSURE SUPPORT [address] [facility] Comment on above: Performed By: #### 0 0121, 52813, 93579, 11958, 90087 #### [facility] [address] [place] [address], [facility] THB 10.3 g/dL Low 12.0-16.3 [facility] Comment on above: Performed By: #### 0 0121, 11388, 83478, 77710, 48949 #### [facility] [address] [place] [address], [facility] ARTERIAL BLOOD GAS WITH ICAo n 03-21-2019 BASE EXCESS 4 mmol/L High -2-3 [facility] Comment on above: Performed By: #### 0 0121, 48624, 89798, 16015, 71613 #### [facility] [address] [place] [address], [place] [employer] [place] Normal [facility] Comment on above: Performed By: #### 0 0121, 57291, 99388, 94383, 84322 #### [facility] [address] [place] [address], [place] HCO3 (Bld) [Moles/Vol] 27 mmol/L Normal 21-28 [facility] Comment on above: Performed By: #### 0 0121, 15420, 33553, 58515, 55792 #### [facility] [address] [place] [address], [place] IONIZED CALCIUM 1.17 mmol/L Normal 1.13-1.[address] [facility] Comment on above: Performed By: #### 0 0121, [id number], 15498, 93984, 48819 #### [facility] [address] [place] [address], [place] LPM 6.0 LPM Normal [facility] Comment on above: Performed By: #### 0 0121, 03955, 29235, 94423, [id number] #### [facility] [address] [place] [address], [place] Oxygen (Bld) [Partial pressure] 67 mm[Hg] Low 83-108 [facility] Comment on above: Performed By: #### 0 0121, 10670, 49708, 97954, 63234 #### [facility] [address] [place] [address], [place] Oxygen saturation in Blood 92.7 % Low 94.0-97.0 [facility] Comment on above: Performed By: #### 0 0121, 43632, 53337, 34419, 97754 #### [facility] [address] [place] [address], [place] PCO2 36 mmHg Normal 35-45 [facility] Comment on above: Performed By: #### 0 0121, 36663, 37847, 49959, 51964 #### [facility] [address] [place] [address], [facility] pH (Bld) 7.49 [pH] High 7.35-7.45 [facility] Comment on above: Result Comment: KINJAL SE NOTE: Effective 12/02/18, reference ranges for Respiratory GEM analyzers running arterial blood have been updated to reflect the employment advisor's published reference ranges. Performed By: #### 0 0121, 26085, 09944, 22655, 93231 #### [facility] [address] [place] [address], [facility] BASE EXCESS 1 mmol/L Normal -2-3 [facility] Comment on above: Performed By: #### 0 0121, 21206, 00079, 17568, 20270 #### [facility] [address] [place] [address], [facility] DELIVERY SYSTEMS VENTILATOR Normal [facility] Comment on above: Performed By: #### 0 0121, 62501, 26903, 12017, 41924 #### [facility] [address] [place] [address], [facility] FIO2 40 % Normal [facility] Comment on above: Performed By: #### 0 0121, 61538, 94007, 77482, 18642 #### [facility] [address] [place] [address], [place] HCO3 (Bld) [Moles/Vol] 24 mmol/L Normal 21-28 [facility] Comment on above: Performed By: #### 0 0121, 82061, 57669, 02340, 31553 #### [facility] [address] [place] [address], [place] IONIZED CALCIUM 1.07 mmol/L Low 1.13-1.[address] [facility] Comment on above: Performed By: #### 0 0121, 04135, 68884, 60845, 34511 #### [facility] [address] [place] [address], [place] MIN VOLUME 15.6 Normal [facility] Comment on above: Performed By: #### 0 0121, 73227, 34210, 00878, 09844 #### [facility] [address] [place] [address], [place] MODALITY Positive Normal [facility] Comment on above: Performed By: #### 0 0121, 69448, 06265, 53393, 86827 #### [facility] [address] [place] [address], [place] Oxygen (Bld) [Partial pressure] 89 mm[Hg] Normal 83-108 [facility] Comment on above: Performed By: #### 0 0121, 69473, 16073, 50640, 85821 #### [facility] [address] [place] [address], [place] Oxygen saturation in Blood 94.7 % Normal 94.0-97.0 [facility] Comment on above: Performed By: #### 0 0121, 65278, 86040, 08663, 97761 #### [facility] [address] [place] [address], [place] PCO2 30 mmHg Low 35-45 [facility] Comment on above: Performed By: #### 0 0121, 57408, 04593, 83804, 01192 #### [facility] [address] [place] [address], [place] PEEP 8.0 CMH20 Normal [facility] Comment on above: Performed By: #### 0 0121, 89883, 01478, 47447, 79113 #### [facility] [address] [place] [address], [place] pH (Bld) 7.51 [pH] High 7.35-7.45 [facility] Comment on above: Result Comment: KINJAL REYNOSO NOTE: Effective 12/02/18, reference ranges for Respiratory GEM analyzers running arterial blood have been updated to reflect the employment advisor's published reference ranges. Performed By: #### 0 0121, 61825, 39538, 10466, 26183 #### [facility] [address] [place] [address], [facility] PRESSURE SUPPORT [address] Normal [address] [facility] Comment on above: Performed By: #### 0 0121, 78662, 54990, 99949, 43680 #### [facility] [address] [place] [address], [facility] BASE EXCESS 0 mmol/L Normal -2-3 [facility] Comment on above: Performed By: #### 0 0121, 60460, 87950, 80617, 02548 #### [facility] [address] [place] [address], [facility] DELIVERY SYSTEMS MV Normal [facility] Comment on above: Performed By: #### 0 0121, 05789, 79810, 35021, 85671 #### [facility] [address] [place] [address], [facility] FIO2 40 % Normal [facility] Comment on above: Performed By: #### 0 0121, 60163, 99193, 53615, 93805 #### [facility] [address] [place] [id number], [facility] HCO3 (Bld) [Moles/Vol] 23 mmol/L Normal 21-28 [facility] Comment on above: Performed By: #### 0 0121, 30360, 35958, 40416, 13453 #### [facility] [address] [place] [id number], [facility] IONIZED CALCIUM 1.07 mmol/L Low 1.13-1.[address] [facility] Comment on above: Performed By: #### 0 0121, 21832, 17408, 08541, 82276 #### [facility] [address] [place] [address], [place] MIN VOLUME 17.0 Normal [facility] Comment on above: Performed By: #### 0 0121, 31016, 41309, 41140, 43586 #### [facility] [address] [place] [address], [place] MODALITY AC Normal [facility] Comment on above: Performed By: #### 0 0121, 56826, 01415, 79914, 92426 #### [facility] [address] [place] [address], [place] Oxygen (Bld) [Partial pressure] 94 mm[Hg] Normal 83-108 [facility] Comment on above: Performed By: #### 0 0121, 41111, 10728, 36573, 76217 #### [facility] [address] [place] [address], [place] Oxygen saturation in Blood 95.1 % Normal 94.0-97.0 [facility] Comment on above: Performed By: #### 0 0121, 78238, 59577, 49648, 03403 #### [facility] [address] [place] [address], [place] PCO2 30 mmHg Low 35-45 [facility] Comment on above: Performed By: #### 0 0121, 11286, 59609, 64583, 06094 #### [facility] [address] [place] [address], [place] PEEP 8.0 CMH20 Normal [facility] Comment on above: Performed By: #### 0 0121, 64366, 72416, 25885, 93670 #### [facility] [address] [place] [address], [place] pH (Bld) 7.49 [pH] High 7.35-7.45 [facility] Comment on above: Result Comment: PLEA SE NOTE: Effective 12/02/18, reference ranges for Respiratory GEM analyzers running arterial blood have been updated to reflect the employment advisor's published reference ranges. Performed By: #### 0 0121, 96529, 16616, 44247, 15826 #### [facility] [address] [place] [address], [facility] TIDAL VOLUME (VT) CC 700 cc Normal [facility] Comment on above: Performed By: #### 0 0121, 12464, 35516, 59462, 14946 #### [facility] [address] [place] [address], [facility] BASE EXCESS 0 mmol/L Normal -2-3 [facility] Comment on above: Performed By: #### 0 0121, 82947, 81587, 42914, 88576 #### [facility] [address] [place] [address], [facility] DELIV[employer] MV Normal [facility] Comment on above: Performed By: #### 0 0121, 83195, 20273, 47874, 06514 #### [facility] [address] [place] [address], [facility] FIO2 50 % Normal [facility] Comment on above: Performed By: #### 0 0121, 30571, 81499, 45086, 83530 #### [facility] [address] [place] [address], [facility] HCO3 (Bld) [Moles/Vol] 23 mmol/L Normal 21-28 [facility] Comment on above: Performed By: #### 0 0121, 01510, 52557, 51755, 31213 #### [facility] [address] [place] [id number], [facility] IONIZED CALCIUM 1.14 mmol/L Normal 1.13-1.[address] [facility] Comment on above: Performed By: #### 0 0121, 99380, 74641, 46696, 71538 #### [facility] [address] [place] [address], [place] MIN VOLUME 13.3 Normal [facility] Comment on above: Performed By: #### 0 0121, 73523, 07139, 79433, 09854 #### [facility] [address] [place] [address], [place] MODALITY AC Normal [facility] Comment on above: Performed By: #### 0 0121, 21822, 60933, 93936, 83160 #### [facility] [address] [place] [address], [place] Oxygen (Bld) [Partial pressure] 71 mm[Hg] Low 83-108 [facility] Comment on above: Performed By: #### 0 0121, 72991, 17698, 39857, 34294 #### [facility] [address] [place] [address], [place] Oxygen saturation in Blood 92.6 % Low 94.0-97.0 [facility] Comment on above: Performed By: #### 0 0121, 41596, 98560, 33775, 75137 #### [facility] [address] [place] [address], [place] PCO2 31 mmHg Low 35-45 [facility] Comment on above: Performed By: #### 0 0121, 06471, 24725, 05951, 34434 #### [facility] [address] [place] [address], [place] PEEP 8.0 CMH20 Normal [facility] Comment on above: Performed By: #### 0 0121, 44238, 86319, 66160, 72298 #### [facility] [address] [place] [address], [place] PF RATIO 142 mmHg Normal [facility] Comment on above: Performed By: #### 0 0121, 56004, 66416, 10509, 93340 #### [facility] [address] [place] [address], [place] pH (Bld) 7.47 [pH] High 7.35-7.45 [facility] Comment on above: Result Comment: KINJAL REYNOSO NOTE: Effective 12/02/18, reference ranges for Respiratory GEM analyzers running arterial blood have been updated to reflect the employment advisor's published reference ranges. Performed By: #### 0 0121, 24090, 84741, 04345, 50199 #### [facility] [address] [place] [address], [facility] TIDAL VOLUME (VT) CC 700 cc Normal [facility] Comment on above: Performed By: #### 0 0121, 21587, 90224, 55842, 85047 #### [facility] [address] [place] [address], [place] BASIC METABOLIC PANELon 03-01 Calcium [Mass/Vol] 8.6 mg/dL Normal 8.6-10.3 [facility] Comment on above: Order Comment: << On admission If not done in ED>> No: Do not add to previous draw Performed By: #### 0 0121, 43201, 60778, 75332, 28683 #### [facility] [address] [place] [address], [place] Chloride [Moles/Vol] 104 mmol/L Normal 98-107 [facility] Comment on above: Order Comment: << On admission If not done in ED>> No: Do not add to previous draw Performed By: #### 0 0121, 40221, 15025, 59155, 74828 #### [facility] [address] [place] [address], [place] CO2 [Moles/Vol] 26 mmol/L Normal 21-31 [facility] Comment on above: Order Comment: << On admission If not done in ED>> No: Do not add to previous draw Performed By: #### 0 0121, 14894, 48013, 72054, 73944 #### [facility] [address] [place] [address], [place] Creatinine [Mass/Vol] 1.48 mg/dL High 0.70-1.30 [facility] Comment on above: Order Comment: << On admission If not done in ED>> No: Do not add to previous draw Performed By: #### 0 0121, 68064, 99143, 88527, 19954 #### [facility] [address] [place] [address], [place] GFR/1.73 sq M predicted among blacks MDRD (S/P/Bld) [Vol rate/Area] 60 ml/min/1.73sq m Abnormal >60 [facility] Comment on above: Order Comment: << On admission If not done in ED>> No: Do not add to previous draw Performed By: #### 0 0121, 88639, 68146, 01671, 62704 #### [facility] [address] [place] [address], [place] GFR/1.73 sq M predicted among non-blacks MDRD (S/P/Bld) [Vol rate/Area] 50 ml/min/1.73sq m Abnormal >60 [facility] Comment on above: Order Comment: << On admission If not done in ED>> No: Do not add to previous draw Performed By: #### 0 0121, 34208, 92137, 51903, 54202 #### [facility] [address] [place] [address], [place] Glucose [Mass/Vol] 115 mg/dL High 70-100 [facility] Comment on above: Order Comment: << On admission If not done in ED>> No: Do not add to previous draw Performed By: #### 0 0121, 34761, 76836, 76145, 68277 #### [facility] [address] [place] [address], [place] Potassium [Moles/Vol] 3.4 mmol/L Low 3.5-5.1 [facility] Comment on above: Order Comment: << On admission If not done in ED>> No: Do not add to previous draw Performed By: #### 0 0121, 59673, 26685, 99785, 01696 #### [facility] [address] [place] [address], [place] Sodium [Moles/Vol] 138 mmol/L Normal 136-[address] [facility] Comment on above: Order Comment: << On admission If not done in ED>> No: Do not add to previous draw Performed By: #### 0 0121, 26912, 88060, 19154, 13629 #### [facility] [address] [place] [address], [place] Urea nitrogen [Mass/Vol] 23 mg/dL Normal 7-25 [facility] Comment on above: Order Comment: << On admission If not done in ED>> No: Do not add to previous draw Performed By: #### 0 0121, 74615, 01468, 85620, 80631 #### [facility] [address] [place] [address], [place] Calcium [Mass/Vol] 8.1 mg/dL Low 8.6-10.[address] [facility] Comment on above: Order Comment: << On admission If not done in ED>> No: Do not add to previous draw Performed By: #### 0 0121, 44240, 20134, 58668, 18947 #### [facility] [address] [place] [address], [place] Chloride [Moles/Vol] 105 mmol/L Normal 98-107 [facility] Comment on above: Order Comment: << On admission If not done in ED>> No: Do not add to previous draw Performed By: #### 0 0121, 87576, 76194, 03877, 66484 #### [facility] [address] [place] [address], [facility] CO2 [Moles/Vol] 26 mmol/L Normal 21-31 [facility] Comment on above: Order Comment: << On admission If not done in ED>> No: Do not add to previous draw Performed By: #### 0 0121, 91566, 35378, 52255, 91902 #### [facility] [address] [place] [address], [facility] Creatinine [Mass/Vol] 1.37 mg/dL High 0.70-1.30 [facility] Comment on above: Order Comment: << On admission If not done in ED>> No: Do not add to previous draw Performed By: #### 0 0121, 11683, 99900, 23627, 80043 #### [facility] [address] [place] [address], [facility] GFR/1.73 sq M predicted among blacks MDRD (S/P/Bld) [Vol rate/Area] mL/min/{1.73_m2} Normal >60 [facility] Comment on above: Order Comment: << On admission If not done in ED>> No: Do not add to previous draw Performed By: #### 0 0121, 24679, 23959, 62847, 94669 #### [facility] [address] [place] [address], [facility] GFR/1.73 sq M predicted among non-blacks MDRD (S/P/Bld) [Vol rate/Area] 54 ml/min/1.73sq m Abnormal >60 [facility] Comment on above: Order Comment: << On admission If not done in ED>> No: Do not add to previous draw Performed By: #### 0 0121, 88426, 80528, 83470, 87837 #### [facility] [address] [place] [address], [place] Glucose [Mass/Vol] 113 mg/dL High 70-100 [facility] Comment on above: Order Comment: << On admission If not done in ED>> No: Do not add to previous draw Performed By: #### 0 0121, 27245, 88202, 24772, 57026 #### [facility] [address] [place] [address], [place] Potassium [Moles/Vol] 3.3 mmol/L Low 3.5-5.1 [facility] Comment on above: Order Comment: << On admission If not done in ED>> No: Do not add to previous draw Performed By: #### 0 0121, 11038, 43145, 58335, 55006 #### [facility] [address] [place] [address], [place] Sodium [Moles/Vol] 138 mmol/L Normal 136-145 [facility] Comment on above: Order Comment: << On admission If not done in ED>> No: Do not add to previous draw Performed By: #### 0 0121, 85398, 42785, 17808, 79443 #### [facility] [address] [place] [address], [place] Urea nitrogen [Mass/Vol] 19 mg/dL Normal 7-25 [facility] Comment on above: Order Comment: << On admission If not done in ED>> No: Do not add to previous draw Performed By: #### 0 0121, 72357, 44209, 26427, 41249 #### [facility] [address] [place] [address], [place] Calcium [Mass/Vol] 7.4 mg/dL Low 8.6-10.3 [facility] Comment on above: Order Comment: << On admission If not done in ED>> No: Do not add to previous draw Performed By: #### 0 0121, 71032, 26312, 19057, 13915 #### [facility] [address] [place] [address], [place] Chloride [Moles/Vol] 109 mmol/L High 98-107 [facility] Comment on above: Order Comment: << On admission If not done in ED>> No: Do not add to previous draw Performed By: #### 0 0121, 14778, 33840, 75866, 21549 #### [facility] [address] [place] [address], [place] CO2 [Moles/Vol] 21 mmol/L Normal 21-31 [facility] Comment on above: Order Comment: << On admission If not done in ED>> No: Do not add to previous draw Performed By: #### 0 0121, 78218, 49738, 66019, 14827 #### [facility] [address] [place] [address], [facility] Creatinine [Mass/Vol] 1.22 mg/dL Normal 0.70-1.30 [facility] Comment on above: Order Comment: << On admission If not done in ED>> No: Do not add to previous draw Performed By: #### 0 0121, 47600, 43278, 26078, 06105 #### [facility] [address] [place] [address], [place] GFR/1.73 sq M predicted among blacks MDRD (S/P/Bld) [Vol rate/Area] mL/min/{1.73_m2} Normal >60 [facility] Comment on above: Order Comment: << On admission If not done in ED>> No: Do not add to previous draw Performed By: #### 0 0121, 41220, 23720, 32099, 62247 #### [facility] [address] [place] [address], [place] GFR/1.73 sq M predicted among non-blacks MDRD (S/P/Bld) [Vol rate/Area] mL/min/{1.73_m2} Normal >60 [facility] Comment on above: Order Comment: << On admission If not done in ED>> No: Do not add to previous draw Performed By: #### 0 0121, 92425, 00089, 45304, 29311 #### [facility] [address] [place] [address], [facility] Glucose [Mass/Vol] 129 mg/dL High 70-[address] [facility] Comment on above: Order Comment: << On admission If not done in ED>> No: Do not add to previous draw Performed By: #### 0 0121, 11899, 02910, 10977, 26382 #### [facility] [address] [place] [address], [facility] Potassium [Moles/Vol] 3.1 mmol/L Low 3.5-5.1 [facility] Comment on above: Order Comment: << On admission If not done in ED>> No: Do not add to previous draw Performed By: #### 0 0121, 11562, 28453, 23204, 87490 #### [facility] [address] [place] [address], [facility] Sodium [Moles/Vol] 139 mmol/L Normal 136-[address] [facility] Comment on above: Order Comment: << On admission If not done in ED>> No: Do not add to previous draw Performed By: #### 0 0121, 69151, 50655, 61865, 26030 #### [facility] [address] [place] [address], [facility] Urea nitrogen [Mass/Vol] 17 mg/dL Normal 7-25 [facility] Comment on above: Order Comment: << On admission If not done in ED>> No: Do not add to previous draw Performed By: #### 0 0121, 48421, 21509, 60206, 58626 #### [facility] [address] [place] [address], [facility] CBC COMPLETE BLOOD COUNTon 0 - Erythrocyte distribution width (RBC) [Ratio] 13.5 % Normal 11.5-15.0 [facility] Comment on above: Order Comment: << On admission If not done in ED>> No: Do not add to previous draw Performed By: #### 0 0121, 87594, 93623, 57481, 11174 #### [facility] [address] [place] [address], [facility] Hematocrit (Bld) [Volume fraction] 33.7 % Low 39.0-50.0 [facility] Comment on above: Order Comment: << On admission If not done in ED>> No: Do not add to previous draw Performed By: #### 0 0121, 77767, 08590, 39724, 39497 #### [facility] [address] [place] [address], [facility] Hemoglobin (Bld) [Mass/Vol] 10.9 g/dL Low 13.0-17.0 [facility] Comment on above: Order Comment: << On admission If not done in ED>> No: Do not add to previous draw Performed By: #### 0 0121, 66839, 21294, 58714, 53539 #### [facility] [address] [place] [address], [facility] MCH (RBC) [Entitic mass] 29.3 pg Normal 27.0-33.0 [facility] Comment on above: Order Comment: << On admission If not done in ED>> No: Do not add to previous draw Performed By: #### 0 0121, 31309, 49247, 64802, 87788 #### [facility] [address] [place] [address], [facility] MCHC (RBC) [Mass/Vol] 32.3 g/dL Normal 32.0-35.0 [facility] Comment on above: Order Comment: << On admission If not done in ED>> No: Do not add to previous draw Performed By: #### 0 0121, 43883, 84363, 24860, 38877 #### [facility] [address] [place] [address], [facility] MCV (RBC) [Entitic vol] 90.6 fL Normal 82.0-98.0 [facility] Comment on above: Order Comment: << On admission If not done in ED>> No: Do not add to previous draw Performed By: #### 0 0121, 70907, 44565, 24097, 36608 #### [facility] [address] [place] [address], [facility] Nucleated RBC/100 WBC (Bld) [Ratio] 0 % Normal 0-0 [facility] Comment on above: Order Comment: << On admission If not done in ED>> No: Do not add to previous draw Performed By: #### 0 0121, 13911, 41178, 62521, 49504 #### [facility] [address] [place] [address], [facility] PLAT CNT 100 10*3/uL Low 150-400 [facility] Comment on above: Order Comment: << On admission If not done in ED>> No: Do not add to previous draw Performed By: #### 0 [id number], [id number], [id number], [id number], [id number] #### [facility] [address] [place] [address], [facility] RBC (Bld) [#/Vol] 3.72 10*6/uL Low 4.20-5.[address] [facility] Comment on above: Order Comment: << On admission If not done in ED>> No: Do not add to previous draw Performed By: #### 0 [id number], [id number], 36410, 77074, [id number] #### [facility] [address] [place] [address], [place] WBC (Bld) [#/Vol] 17.24 10*3/uL High 4.00-10.60 [facility] Comment on above: Order Comment: << On admission If not done in ED>> No: Do not add to previous draw Performed By: #### 0 0121, 33627, 11396, 57992, 55576 #### [facility] [address] Erythrocyte distribution width (RBC) [Ratio] 13.5 % Normal 11.5-15.0 [facility] Comment on above: Order Comment: << On admission If not done in ED>> No: Do not add to previous draw Performed By: #### 0 0121, 43738, 33687, 13146, 80650 #### [facility] [address] [place] [address], [facility] Hematocrit (Bld) [Volume fraction] 35.2 % Low 39.0-50.0 [facility] Comment on above: Order Comment: << On admission If not done in ED>> No: Do not add to previous draw Performed By: #### 0 0121, 12912, 38381, 52442, 45231 #### [facility] [address] [place], [place] [id number] [place] [address] Hemoglobin (Bld) [Mass/Vol] 11.5 g/dL Low 13.0-17.0 [facility] Comment on above: Order Comment: << On admission If not done in ED>> No: Do not add to previous draw Performed By: #### 0 0121, 72938, 07309, 25563, 47599 #### [facility] 3000 [facility] IMM PLATELET FRAC 4.3 % Normal 0.8-6.3 [facility] Comment on above: Order Comment: << On admission If not done in ED>> No: Do not add to previous draw Performed By: #### 0 0121, 63911, 94548, 99632, 80190 #### [facility] [address] [place] [address], [facility] MCH (RBC) [Entitic mass] 29.4 pg Normal 27.0-33.0 [facility] Comment on above: Order Comment: << On admission If not done in ED>> No: Do not add to previous draw Performed By: #### 0 0121, 40641, 84100, 00912, 87014 #### [facility] [address] MCHC (RBC) [Mass/Vol] 32.7 g/dL Normal 32.0-35.0 [facility] Comment on above: Order Comment: << On admission If not done in ED>> No: Do not add to previous draw Performed By: #### 0 0121, 67795, 37370, 78388, 79330 #### [facility] [address] MCV (RBC) [Entitic vol] 90.0 fL Normal 82.0-98.0 [facility] Comment on above: Order Comment: << On admission If not done in ED>> No: Do not add to previous draw Performed By: #### 0 0121, 12779, 81456, 22613, 38075 #### [facility] [address] Nucleated RBC/100 WBC (Bld) [Ratio] 0 % Normal 0-0 [facility] Comment on above: Order Comment: << On admission If not done in ED>> No: Do not add to previous draw Performed By: #### 0 0121, 85274, 21274, 44135, 66227 #### [facility] 3000 [facility]. [address] PLAT CNT 99 10*3/uL Low 150-400 [facility] Comment on above: Order Comment: << On admission If not done in ED>> No: Do not add to previous draw Performed By: #### 0 0121, 90023, 86342, 03209, 49181 #### [facility] [address] RBC (Bld) [#/Vol] 3.91 10*6/uL Low 4.20-5.[address] [facility] Comment on above: Order Comment: << On admission If not done in ED>> No: Do not add to previous draw Performed By: #### 0 0121, 56247, 42495, 48555, 33446 #### [facility] [address] [place] [address], [facility] WBC (Bld) [#/Vol] 19.55 10*3/uL High 4.00-10.60 [facility] Comment on above: Order Comment: << On admission If not done in ED>> No: Do not add to previous draw Performed By: #### 0 0121, 06869, 35966, 18495, 93873 #### [facility] [address] Erythrocyte distribution width (RBC) [Ratio] 13.5 % Normal 11.5-15.0 [facility] Comment on above: Order Comment: << On admission If not done in ED>> No: Do not add to previous draw Performed By: #### 0 0121, 49174, 12840, 40750, 54288 #### [facility] [address] Hematocrit (Bld) [Volume fraction] 38.1 % Low 39.0-50.0 [facility] Comment on above: Order Comment: << On admission If not done in ED>> No: Do not add to previous draw Performed By: #### 0 0121, 55381, 19285, 13323, 18460 #### [facility] [address] Hemoglobin (Bld) [Mass/Vol] 12.2 g/dL Low 13.0-17.0 [facility] Comment on above: Order Comment: << On admission If not done in ED>> No: Do not add to previous draw Performed By: #### 0 0121, 95507, 80316, 36620, 75117 #### [facility] [address] [place] [address], [facility] IMM PLATELET FRAC 3.8 % Normal 0.8-6.3 [facility] Comment on above: Order Comment: << On admission If not done in ED>> No: Do not add to previous draw Performed By: #### 0 0121, 74172, 18526, 85191, 94401 #### [facility] [address] [place] [address], [facility] MCH (RBC) [Entitic mass] 29.0 pg Normal 27.0-33.0 [facility] Comment on above: Order Comment: << On admission If not done in ED>> No: Do not add to previous draw Performed By: #### 0 0121, 16191, 82499, 27132, 70695 #### [facility] [address] MCHC (RBC) [Mass/Vol] 32.0 g/dL Normal 32.0-35.0 [facility] Comment on above: Order Comment: << On admission If not done in ED>> No: Do not add to previous draw Performed By: #### 0 0121, 24555, 88196, 17388, 39863 #### [facility] 3000 [facility] [place] [address], [facility] MCV (RBC) [Entitic vol] 90.7 fL Normal 82.0-98.0 [facility] Comment on above: Order Comment: << On admission If not done in ED>> No: Do not add to previous draw Performed By: #### 0 0121, 58281, 50485, 91530, 10608 #### [facility] 3000 [facility] [place] [address], [facility] Nucleated RBC/100 WBC (Bld) [Ratio] 0 % Normal 0-0 [facility] Comment on above: Order Comment: << On admission If not done in ED>> No: Do not add to previous draw Performed By: #### 0 0121, 95787, 98694, 61068, 01029 #### [facility] 3000 [place] [address], [place] PLAT CNT 112 10*3/uL Low 150-400 [facility] Comment on above: Order Comment: << On admission If not done in ED>> No: Do not add to previous draw Performed By: #### 0 0121, 38229, 48844, 51343, 57114 #### [facility] [address] [place] [address], [facility] RBC (Bld) [#/Vol] 4.20 10*6/uL Normal 4.20-5.70 [facility] Comment on above: Order Comment: << On admission If not done in ED>> No: Do not add to previous draw Performed By: #### 0 0121, 46762, 62871, 10207, 38475 #### [facility] [address] [place] [address], [facility] WBC (Bld) [#/Vol] 21.05 10*3/uL High 4.00-10.60 [facility] Comment on above: Order Comment: << On admission If not done in ED>> No: Do not add to previous draw Performed By: #### 0 0121, 75029, 41256, 04751, 03787 #### [facility] [address] [place] [address], [facility] COOXIMETRYon 03-21-2019 COHB 1 % Normal [facility] Comment on above: Performed By: #### 0 0121, 88482, 70288, 27882, 71937 #### [facility] [address] [place] [address], [place] METHB 1 % Normal [facility] Comment on above: Performed By: #### 0 0121, 65373, 42290, 95804, 89985 #### [facility] [address] [place] [address], [facility] Oxygen saturation in Blood 59.8 % Low 65.0-75.0 [facility] Comment on above: Performed By: #### 0 0121, 45980, 90876, 55595, 77844 #### [facility] [address] [place] [address], [place] THB 10.9 g/dL Normal [facility] Comment on above: Performed By: #### 0 0121, 86573, 16056, 19448, 79668 #### [facility] [address] [place] [address], [place] COHB 2 % Normal [facility] Comment on above: Performed By: #### 0 0121, 38574, 58631, 80185, 85061 #### [facility] [address] [place] [address], [place] METHB 1 % Normal [facility] Comment on above: Performed By: #### 0 0121, 07044, 65467, 47782, 33763 #### [facility] [address] [place] [address], [place] Oxygen saturation in Blood 70.2 % Normal 65.0-75.0 [facility] Comment on above: Performed By: #### 0 0121, 22893, 77062, 52636, 23747 #### [facility] [address] [place] [address], [place] THB 11.5 g/dL Normal [facility] Comment on above: Performed By: #### 0 0121, 33124, 68961, 01085, 12977 #### [facility] [address] [place] [address], [place] MAGNESIUM BLOODon 03-21-2019 Magnesium [Mass/Vol] 2.1 mg/dL Normal 1.9-2.7 [facility] Comment on above: Order Comment: << On admission If not done in ED>> No: Do not add to previous draw Performed By: #### 0 0121, 73989, 85458, 68517, 09607 #### [facility] [address] [place] [address], [place] Magnesium [Mass/Vol] 2.1 mg/dL Normal 1.9-2.7 [facility] Comment on above: Order Comment: << On admission If not done in ED>> No: Do not add to previous draw Performed By: #### 0 0121, 41479, 74690, 27399, 69594 #### [facility] [address] [place] [address], [place] Magnesium [Mass/Vol] 2.2 mg/dL Normal 1.9-2.7 [facility] Comment on above: Order Comment: << On admission If not done in ED>> No: Do not add to previous draw Performed By: #### 0 0121, 80011, 01212, 94419, 60727 #### [facility] [address] [place] [address], [place] POC GLUCOSE LABon 03-21-2019 Glucose [Mass/Vol] 107 mg/dL High 70-100 [facility] Comment on above: Performed By: #### 0 0121, 29736, 72143, 35814, 94638 #### [facility] [address] [place] [address], [place] Glucose [Mass/Vol] 103 mg/dL High 70-100 [facility] Comment on above: Performed By: #### 0 0121, 16639, 60917, 02708, 95676 #### [facility] [address] [place] [address], [place] Glucose [Mass/Vol] 112 mg/dL High 70-100 [facility] Comment on above: Performed By: #### 0 0121, 43876, 25484, 19107, 80217 #### [facility] [address] [place] [address], [place] Glucose [Mass/Vol] 127 mg/dL High 70-100 [facility] Comment on above: Performed By: #### 0 0121, 45555, 70560, 79604, 52148 #### [facility] [address] [place] [address], [place] Glucose [Mass/Vol] 95 mg/dL Normal 70-100 [facility] Comment on above: Performed By: #### 0 0121, 40329, 21653, 29315, 88025 #### [facility] [address] [place] [address], [place] Glucose [Mass/Vol] 104 mg/dL High 70-100 [facility] Comment on above: Performed By: #### 0 0121, 43805, 49376, 50901, 95154 #### [facility] [address] [place] [address], [place] Glucose [Mass/Vol] 98 mg/dL Normal 70-100 [facility] Comment on above: Performed By: #### 0 0121, 21293, 77695, 05279, 46307 #### [facility] [address] [place] [address], [place] Glucose [Mass/Vol] 113 mg/dL High 70-100 [facility] Comment on above: Performed By: #### 0 0121, 42978, 08853, 66460, 14591 #### [facility] [address] [place] [address], [place] Glucose [Mass/Vol] 130 mg/dL High 70-100 [facility] Comment on above: Performed By: #### 0 0121, 09391, 49575, 43863, 34993 #### [facility] [address] [place] [address], [place] Glucose [Mass/Vol] 130 mg/dL High 70-100 [facility] Comment on above: Performed By: #### 0 0121, 39968, 02327, 07829, 24780 #### [facility] [address] [place] [address], [place] Glucose [Mass/Vol] 129 mg/dL High 70-[address] [facility] Comment on above: Performed By: #### 0 0121, 27672, 72732, 63217, 05604 #### [facility] [address] [place] [address], [place] Glucose [Mass/Vol] 108 mg/dL High 70-[address] [facility] Comment on above: Performed By: #### 0 0121, 21506, 21205, 57676, 99858 #### [facility] [address] [place] [address], [place] Glucose [Mass/Vol] 101 mg/dL High 70-[address] [facility] Comment on above: Performed By: #### 0 0121, 26866, 10563, 34248, 75741 #### [facility] 3000 [facility] [place] [address], [facility] PORTABLE CHEST 1 VIEW 03-01 PORTABLE CHEST 1 VIEW [facility] Department of Radiology [address] [place] [id number] ======== Patient Name: TRACIE CRAIN : 1965 Sex: M Age: Race: NA Pt. Location: [id number] Patient Status: I Ordered Date: 03/21/2019 5:00:00 [...] of field of view, in satisfactory position. Oto-Sher catheter is again seen with tip projecting [...] findings. Electronically signed by:Yenni Osuna. Transcribed by: [email or web address], User Resident: CYNTHIA FINLEY Electronically Signed by: YENNI OSUNA @ 03/22/2019 01:07 PM I personally read this/these film(s) with this resident Normal [facility] Comment on above: Order Comment: << On admission If not done in ED>> No: Do not add to previous draw ARTERIAL BLOOD GAS WITH ICAo n 03-20-2019 BASE EXCESS -4 mmol/L Low -2-3 [facility] Comment on above: Performed By: #### 0 0121, 30092, 07757, 18934, 29636 #### [facility] [address] [place] [address], [facility] [employer] VENTILATOR Normal The [facility] Comment on above: Performed By: #### 0 0121, 24770, 74082, 19419, 52438 #### [facility] [address] [place] [address], [facility] FIO2 50 % Normal [facility] Comment on above: Performed By: #### 0 0121, 68947, 78256, 43843, 80259 #### [facility] [address] [place] [address], [facility] HCO3 (Bld) [Moles/Vol] 19 mmol/L Low 21-28 [facility] Comment on above: Performed By: #### 0 0121, 71255, 51487, 58683, 87471 #### [facility] [address] [place] [address], [facility] IONIZED CALCIUM 1.06 mmol/L Low 1.13-1.[address] [facility] Comment on above: Performed By: #### 0 0121, 29239, 41999, 28176, 47209 #### [facility] [address] [place] [address], [facility] MIN VOLUME 14.2 Normal [facility] Comment on above: Performed By: #### 0 0121, 25894, 65988, 69338, 35232 #### [facility] [address] [place] [address], [facility] MODALITY AC-ASSIST CONTROL Normal [facility] Comment on above: Performed By: #### 0 0121, 87729, 05766, 22519, 82628 #### [facility] [address] [place] [address], [facility] Oxygen (Bld) [Partial pressure] 82 mm[Hg] Low 83-108 [facility] Comment on above: Performed By: #### 0 0121, 20304, 63796, 65905, 42438 #### [facility] [address] [place] [address], [facility] Oxygen saturation in Blood 94.4 % Normal 94.0-97.0 [facility] Comment on above: Performed By: #### 0 0121, 26766, 26546, 64485, 25595 #### [facility] [address] [place] [address], [facility] PCO2 27 mmHg Low 35-45 The [facility] Comment on above: Performed By: #### 0 0121, 03559, 19349, 84013, 27652 #### [facility] [address] [place] [address], [place] PEEP 8.0 CMH20 Normal [facility] Comment on above: Performed By: #### 0 0121, 79866, 58288, 24540, 81307 #### [facility] [address] [place] [address], [facility] pH (Bld) 7.45 [pH] Normal 7.35-7.45 The [facility] Comment on above: Result Comment: KINJAL REYNOSO NOTE: Effective 12/02/18, reference ranges for Respiratory GEM analyzers running arterial blood have been updated to reflect the employment advisor's published reference ranges. Performed By: #### 0 0121, 44906, 10508, 87097, 28697 #### [facility] [address] [place] [address], [place] TIDAL VOLUME (VT) CC 700 cc Normal [facility] Comment on above: Performed By: #### 0 0121, 21650, 27042, 77732, 26517 #### [facility] [address] [place] [address], [place] BASE EXCESS -2 mmol/L Normal -2-3 [facility] Comment on above: Performed By: #### 0 0121, 67884, 16822, 66318, 82083 #### [facility] [address] [place] [address], [facility] [employer] MV Normal The [facility] Comment on above: Performed By: #### 0 0121, 71392, 44809, 34949, 06819 #### [facility] [address] [place] [address], [place] FIO2 100 % Normal [facility] Comment on above: Performed By: #### 0 0121, 51938, 36366, 30001, 95526 #### [facility] [address] [place] [address], [facility] HCO3 (Bld) [Moles/Vol] 22 mmol/L Normal 21-28 The [facility] Comment on above: Performed By: #### 0 0121, 30788, 90247, 57693, 27710 #### [facility] [address] [place] [address], [facility] IONIZED CALCIUM 1.18 mmol/L Normal 1.13-1.[address] [facility] Comment on above: Performed By: #### 0 0121, 36943, 28164, 99870, 89174 #### [facility] [address] [place] [address], [facility] MIN VOLUME 13.0 Normal [facility] Comment on above: Performed By: #### 0 0121, 00303, 51402, 50737, 36332 #### [facility] [address] [place] [address], [place] MODALITY AC Normal [facility] Comment on above: Performed By: #### 0 0121, 17262, 47717, 05849, 33313 #### [facility] [address] [place] [address], [place] Oxygen (Bld) [Partial pressure] 109 mm[Hg] Critically high 83-108 [facility] Comment on above: Performed By: #### 0 0121, 83251, 51975, 84690, 05415 #### [facility] [address] [place] [address], [facility] Oxygen saturation in Blood 95.6 % Normal 94.0-97.0 The [facility] Comment on above: Performed By: #### 0 0121, 55145, 87324, 67439, 11593 #### [facility] [address] [place] [address], [facility] PCO2 33 mmHg Low 35-45 The [facility] Comment on above: Performed By: #### 0 0121, 70773, 74401, 59433, 44597 #### [facility] [address] [place] [address], [facility] PEEP 10.0 CMH20 Normal The [facility] Comment on above: Performed By: #### 0 0121, 36343, 75616, 24701, 39010 #### [facility] [address] [place] [address], [facility] PF RATIO 109 mmHg Normal The [facility] Comment on above: Performed By: #### 0 0121, 21314, 16792, 98018, 69513 #### [facility] [address] [place] [address], [facility] pH (Bld) 7.43 [pH] Normal 7.35-7.45 The [facility] Comment on above: Result Comment: KINJAL REYNOSO NOTE: Effective 12/02/18, reference ranges for Respiratory GEM analyzers running arterial blood have been updated to reflect the employment advisor's published reference ranges. Performed By: #### 0 0121, 11853, 46580, 33886, 63501 #### [facility] [address] [place] [address], [facility] TIDAL VOLUME (VT) CC 700 cc Normal The [facility] Comment on above: Performed By: #### 0 0121, 03093, 62646, 75911, 20298 #### [facility] [address] [place] [address], [facility] BASE EXCESS -4 mmol/L Low -2-3 [facility] Comment on above: Performed By: #### 0 0121, 39259, 04212, 52719, 68416 #### [facility] [address] [place] [address], [facility] [employer] VENTILATOR Normal The [facility] Comment on above: Performed By: #### 0 0121, 31906, 02715, 09846, 64166 #### [facility] [address] [place] [address], [facility] FIO2 100 % Normal The [facility] Comment on above: Performed By: #### 0 0121, 23054, 33451, 53585, 97061 #### [facility] [address] [place] [address], [facility] HCO3 (Bld) [Moles/Vol] 20 mmol/L Low 21-28 [facility] Comment on above: Performed By: #### 0 0121, 53794, 40761, 43809, 25670 #### [facility] [address] [place] [address], [facility] IONIZED CALCIUM 1.23 mmol/L Normal 1.13-1.[address] [facility] Comment on above: Performed By: #### 0 0121, 37658, 57992, 67808, 45342 #### [facility] [address] [place] [address], [facility] MIN VOLUME 15.1 Normal [facility] Comment on above: Performed By: #### 0 0121, 89078, 35756, 71641, 20040 #### [facility] [address] [place] [address], [facility] MODALITY AC-ASSIST CONTROL Normal [facility] Comment on above: Performed By: #### 0 0121, 86260, 24945, 34808, 46531 #### [facility] [address] [place] [address], [place] Oxygen (Bld) [Partial pressure] 90 mm[Hg] Normal 83-108 [facility] Comment on above: Performed By: #### 0 0121, 98065, 91155, 71182, 18736 #### [facility] [address] [place] [address], [place] Oxygen saturation in Blood 95.1 % Normal 94.0-97.0 The [facility] Comment on above: Performed By: #### 0 0121, 21325, 28131, 33666, 32451 #### [facility] [address] [place] [address], [place] PCO2 32 mmHg Low 35-45 [facility] Comment on above: Performed By: #### 0 0121, [id number], [id number], 43423, [id number] #### [facility] [address] [place] [address], [place] PEEP 10.0 CMH20 Normal [facility] Comment on above: Performed By: #### 0 0121, [id number], 93689, 55055, [id number] #### [facility] [address] [place] [address], [place] PF RATIO 900 mmHg Normal [facility] Comment on above: Performed By: #### 0 0121, 75832, 37591, 75179, 76462 #### [facility] [address] [place] [address], [place] pH (Bld) 7.40 [pH] Normal 7.35-7.45 [facility] [facility] Comment on above: Result Comment: KINJAL REYNOSO NOTE: Effective 12/02/18, reference ranges for Respiratory GEM analyzers running arterial blood have been updated to reflect the employment advisor's published reference ranges. Performed By: #### 0 0121, 11082, 34123, 48834, 72979 #### [facility] [address] [place] [address], [facility] TIDAL VOLUME (VT) CC 700 cc Normal [facility] Comment on above: Performed By: #### 0 0121, 41486, 90676, 07115, 81948 #### [facility] [address] [place] [address], [facility] BASIC METABOLIC PANELon 06-2 Calcium [Mass/Vol] 8.1 mg/dL Low 8.6-10.3 [facility] Comment on above: Order Comment: << On admission If not done in ED>> No: Do not add to previous draw Performed By: #### 0 0121, 63467, 71156, 66308, 44833 #### [facility] [address] [place] [address], [facility] Chloride [Moles/Vol] 112 mmol/L High 98-107 [facility] Comment on above: Order Comment: << On admission If not done in ED>> No: Do not add to previous draw Performed By: #### 0 0121, 11970, 52881, 41215, 24710 #### [facility] [address] [place] [address], [facility] CO2 [Moles/Vol] 24 mmol/L Normal 21-31 [facility] Comment on above: Order Comment: << On admission If not done in ED>> No: Do not add to previous draw Performed By: #### 0 0121, 97248, 22372, 71742, 68330 #### [facility] [address] [place] [address], [place] Creatinine [Mass/Vol] 0.97 mg/dL Normal 0.70-1.30 [facility] Comment on above: Order Comment: << On admission If not done in ED>> No: Do not add to previous draw Performed By: #### 0 0121, 67833, 49843, 94862, 95250 #### [facility] [address] [place] [address], [facility] GFR/1.73 sq M predicted among blacks MDRD (S/P/Bld) [Vol rate/Area] mL/min/{1.73_m2} Normal >60 [facility] Comment on above: Order Comment: << On admission If not done in ED>> No: Do not add to previous draw Performed By: #### 0 0121, 63388, 91347, 05849, 15951 #### [facility] [address] [place] [address], [facility] GFR/1.73 sq M predicted among non-blacks MDRD (S/P/Bld) [Vol rate/Area] mL/min/{1.73_m2} Normal >60 [facility] Comment on above: Order Comment: << On admission If not done in ED>> No: Do not add to previous draw Performed By: #### 0 0121, 41813, 31031, 72207, 71199 #### [facility] [address] [facility] [place] [address], [facility] Glucose [Mass/Vol] 134 mg/dL High 70-100 [facility] Comment on above: Order Comment: << On admission If not done in ED>> No: Do not add to previous draw Performed By: #### 0 0121, 19314, 46551, 37941, 30404 #### [facility] [address] [place] [address], [facility] Potassium [Moles/Vol] 3.9 mmol/L Normal 3.5-5.1 [facility] Comment on above: Order Comment: << On admission If not done in ED>> No: Do not add to previous draw Performed By: #### 0 0121, 15271, 03020, 09050, 49456 #### [facility] [address] [place] [address], [place] Sodium [Moles/Vol] 142 mmol/L Normal 136-145 [facility] Comment on above: Order Comment: << On admission If not done in ED>> No: Do not add to previous draw Performed By: #### 0 0121, 00824, 63571, 65887, 70493 #### [facility] [address] [place] [address], [place] Urea nitrogen [Mass/Vol] 16 mg/dL Normal 7-25 [facility] Comment on above: Order Comment: << On admission If not done in ED>> No: Do not add to previous draw Performed By: #### 0 0121, 32740, 69907, 15746, 34502 #### [facility] [address] [place] [address], [place] Chloride [Moles/Vol] 113 mmol/L High 98-107 [facility] Comment on above: Order Comment: << On admission If not done in ED>> No: Do not add to previous draw Performed By: #### 0 0121, 64456, 52119, 48923, 02916 #### [facility] [address] [place] [address], [place] CO2 [Moles/Vol] 23 mmol/L Normal 21-31 [facility] Comment on above: Order Comment: << On admission If not done in ED>> No: Do not add to previous draw Performed By: #### 0 0121, 34423, 09151, 36303, 54834 #### [facility] [address] [place] [address], [place] Creatinine [Mass/Vol] 1.11 mg/dL Normal 0.70-1.30 [facility] Comment on above: Order Comment: << On admission If not done in ED>> No: Do not add to previous draw Performed By: #### 0 0121, 54576, 09077, 60896, 47840 #### [facility] [address] [place] [address], [place] Glucose [Mass/Vol] 157 mg/dL High 70-100 [facility] Comment on above: Order Comment: << On admission If not done in ED>> No: Do not add to previous draw Performed By: #### 0 0121, 00805, 14489, 11027, 24027 #### [facility] [address] [place] [address], [place] Potassium [Moles/Vol] 4.0 mmol/L Normal 3.5-5.1 [facility] Comment on above: Order Comment: << On admission If not done in ED>> No: Do not add to previous draw Performed By: #### 0 0121, 06269, 87690, 89442, 04962 #### [facility] [address] [place] [address], [place] Sodium [Moles/Vol] 143 mmol/L Normal 136-145 [facility] Comment on above: Order Comment: << On admission If not done in ED>> No: Do not add to previous draw Performed By: #### 0 0121, 55705, 94944, 11373, 22326 #### [facility] [address] [place] [address], [place] Urea nitrogen [Mass/Vol] 17 mg/dL Normal 7-25 [facility] Comment on above: Order Comment: << On admission If not done in ED>> No: Do not add to previous draw Performed By: #### 0 0121, 49308, 38175, 02817, 79543 #### [facility] [address] [place] [address], [place] Calcium [Mass/Vol] 8.7 mg/dL Normal 8.6-10.3 [facility] Comment on above: Order Comment: << On admission If not done in ED>> No: Do not add to previous draw Performed By: #### 0 0121, 65972, 11269, 15639, 58637 #### [facility] [address] [place] [address], [place] CO2 [Moles/Vol] 22 mmol/L Normal 21-31 [facility] Comment on above: Order Comment: << On admission If not done in ED>> No: Do not add to previous draw Performed By: #### 0 0121, 48284, 60415, 90680, 36323 #### [facility] [address] [place] [address], [facility] Creatinine [Mass/Vol] 1.00 mg/dL Normal 0.70-1.30 [facility] Comment on above: Order Comment: << On admission If not done in ED>> No: Do not add to previous draw Performed By: #### 0 0121, 70443, 38893, 19046, 50792 #### [facility] [address] [place] [address], [facility] Glucose [Mass/Vol] 126 mg/dL High 70-100 [facility] Comment on above: Order Comment: << On admission If not done in ED>> No: Do not add to previous draw Performed By: #### 0 0121, 76306, 08446, 64035, 03551 #### [facility] [address] [place] [address], [facility] Potassium [Moles/Vol] 4.1 mmol/L Normal 3.5-5.1 [facility] Comment on above: Order Comment: << On admission If not done in ED>> No: Do not add to previous draw Performed By: #### 0 0121, 46705, 47983, 18287, 37682 #### [facility] [address] [place] [address], [facility] CBC COMPLETE BLOOD COUNTon 0 - Erythrocyte distribution width (RBC) [Ratio] 13.2 % Normal 11.5-15.0 [facility] Comment on above: Order Comment: << On admission If not done in ED>> No: Do not add to previous draw Performed By: #### 0 0121, 43370, 32130, 62848, 14871 #### [facility] [address] [place] [address], [facility] Hematocrit (Bld) [Volume fraction] 39.8 % Normal 39.0-50.0 [facility] Comment on above: Order Comment: << On admission If not done in ED>> No: Do not add to previous draw Performed By: #### 0 0121, 22324, 58088, 82384, 76294 #### [facility] [address] [place] [address], [facility] Hemoglobin (Bld) [Mass/Vol] 12.8 g/dL Low 13.0-17.0 [facility] Comment on above: Order Comment: << On admission If not done in ED>> No: Do not add to previous draw Performed By: #### 0 0121, 34041, 34300, 71132, 17248 #### [facility] [address] [place] [address], [facility] MCH (RBC) [Entitic mass] 28.8 pg Normal 27.0-33.0 [facility] Comment on above: Order Comment: << On admission If not done in ED>> No: Do not add to previous draw Performed By: #### 0 0121, 25099, 62124, 90971, 46471 #### [facility] [address] MCHC (RBC) [Mass/Vol] 32.2 g/dL Normal 32.0-35.0 [facility] Comment on above: Order Comment: << On admission If not done in ED>> No: Do not add to previous draw Performed By: #### 0 0121, 75490, 40170, 18980, 59992 #### [facility] [address] [facility] [place] [address], [facility] MCV (RBC) [Entitic vol] 89.4 fL Normal 82.0-98.0 [facility] Comment on above: Order Comment: << On admission If not done in ED>> No: Do not add to previous draw Performed By: #### 0 0121, 49075, 88185, 89490, 71010 #### [facility] [address] [place] [address], [facility] Nucleated RBC/100 WBC (Bld) [Ratio] 0 % Normal 0-0 [facility] Comment on above: Order Comment: << On admission If not done in ED>> No: Do not add to previous draw Performed By: #### 0 0121, 45807, 66580, 07232, 07466 #### [facility] [address] [place] [address], [facility] PLAT CNT 144 10*3/uL Low 150-400 [facility] Comment on above: Order Comment: << On admission If not done in ED>> No: Do not add to previous draw Performed By: #### 0 0121, 08344, 91635, 22402, 39985 #### [facility] [address] [facility] [place] [address], [facility] RBC (Bld) [#/Vol] 4.45 10*6/uL Normal 4.20-5.[address] [facility] Comment on above: Order Comment: << On admission If not done in ED>> No: Do not add to previous draw Performed By: #### 0 0121, 38175, 20293, 49267, 44649 #### [facility] [address] [place] [address], [facility] WBC (Bld) [#/Vol] 18.51 10*3/uL High 4.00-10.60 [facility] Comment on above: Order Comment: << On admission If not done in ED>> No: Do not add to previous draw Performed By: #### 0 0121, 81241, 96033, 76819, 96422 #### [facility] [address] [place] [address], [facility] Erythrocyte distribution width (RBC) [Ratio] 13.1 % Normal 11.5-15.0 [facility] Comment on above: Order Comment: << On admission If not done in ED>> No: Do not add to previous draw Performed By: #### 0 0121, 12282, 11593, 12568, 95799 #### [facility] [address] [place] [address], [facility] Hematocrit (Bld) [Volume fraction] 43.9 % Normal 39.0-50.0 [facility] Comment on above: Order Comment: << On admission If not done in ED>> No: Do not add to previous draw Performed By: #### 0 0121, 73130, 58561, 61741, 73164 #### [facility] [address] [place] [address], [facility] Hemoglobin (Bld) [Mass/Vol] 13.9 g/dL Normal 13.0-17.0 [facility] Comment on above: Order Comment: << On admission If not done in ED>> No: Do not add to previous draw Performed By: #### 0 0121, 77217, 02313, 95494, 58646 #### [facility] [address] [place] [address], [facility] MCH (RBC) [Entitic mass] 28.7 pg Normal 27.0-33.0 [facility] Comment on above: Order Comment: << On admission If not done in ED>> No: Do not add to previous draw Performed By: #### 0 0121, 14529, 62947, 89862, 06499 #### [facility] [address] [place] [address], [facility] MCHC (RBC) [Mass/Vol] 31.7 g/dL Low 32.0-35.0 [facility] Comment on above: Order Comment: << On admission If not done in ED>> No: Do not add to previous draw Performed By: #### 0 0121, 84774, 03951, 65854, 32728 #### [facility] [address] [place] [address], [place] MCV (RBC) [Entitic vol] 90.5 fL Normal 82.0-98.0 [facility] Comment on above: Order Comment: << On admission If not done in ED>> No: Do not add to previous draw Performed By: #### 0 0121, 08455, 22772, 94713, 91313 #### [facility] [address] [place] [address], [facility] PLAT CNT 185 10*3/uL Normal 150-400 [facility] Comment on above: Order Comment: << On admission If not done in ED>> No: Do not add to previous draw Performed By: #### 0 0121, 55487, 53032, 78995, 47024 #### [facility] [address] [place] [address], [facility] RBC (Bld) [#/Vol] 4.85 10*6/uL Normal 4.20-5.70 [facility] Comment on above: Order Comment: << On admission If not done in ED>> No: Do not add to previous draw Performed By: #### 0 0121, 73895, 77523, 17238, 30565 #### [facility] [address] [place] [address], [facility] WBC (Bld) [#/Vol] 19.37 10*3/uL High 4.00-10.60 [facility] Comment on above: Order Comment: << On admission If not done in ED>> No: Do not add to previous draw Performed By: #### 0 0121, 71342, 10036, 12504, 03042 #### [facility] [address] [place] [address], [facility] Hematocrit (Bld) [Volume fraction] 42.3 % Normal 39.0-50.0 [facility] Comment on above: Order Comment: << On admission If not done in ED>> No: Do not add to previous draw Performed By: #### 0 0121, 62362, 32773, 11765, 74840 #### [facility] [address] Hemoglobin (Bld) [Mass/Vol] 14.0 g/dL Normal 13.0-17.0 [facility] Comment on above: Order Comment: << On admission If not done in ED>> No: Do not add to previous draw Performed By: #### 0 0121, 81459, 53883, 33703, 40389 #### [facility] [address] MCH (RBC) [Entitic mass] 29.2 pg Normal 27.0-33.0 [facility] Comment on above: Order Comment: << On admission If not done in ED>> No: Do not add to previous draw Performed By: #### 0 0121, 22503, 01295, 87331, 21184 #### [facility] [address] MCHC (RBC) [Mass/Vol] 33.1 g/dL Normal 32.0-35.0 [facility] Comment on above: Order Comment: << On admission If not done in ED>> No: Do not add to previous draw Performed By: #### 0 0121, 48721, 30257, 01553, 94374 #### [facility] [address] MCV (RBC) [Entitic vol] 88.3 fL Normal 82.0-98.0 [facility] Comment on above: Order Comment: << On admission If not done in ED>> No: Do not add to previous draw Performed By: #### 0 0121, 58539, 33649, 35691, 70585 #### [facility] [address] [place] [address], [facility] PLAT CNT 169 10*3/uL Normal 150-400 [facility] Comment on above: Order Comment: << On admission If not done in ED>> No: Do not add to previous draw Performed By: #### 0 0121, 81153, 04289, 41236, 14284 #### [facility] [address] [place] [address], [place] RBC (Bld) [#/Vol] 4.79 10*6/uL Normal 4.20-5.70 [facility] Comment on above: Order Comment: << On admission If not done in ED>> No: Do not add to previous draw Performed By: #### 0 0121, 47330, 60661, 32010, 55328 #### [facility] [address] [place] [address], [place] WBC (Bld) [#/Vol] 19.78 10*3/uL High 4.00-10.60 [facility] Comment on above: Order Comment: << On admission If not done in ED>> No: Do not add to previous draw Performed By: #### 0 0121, 27596, 63597, 88491, 17212 #### [facility] [address] [place] [address], [facility] COOXIMETRYon 03-20-2019 COHB 2 % Normal [facility] Comment on above: Performed By: #### 0 0121, 63220, 89957, 62983, 27878 #### [facility] [address] [place] [address], [place] METHB 0 % Normal [facility] Comment on above: Performed By: #### 0 0121, 98957, 27004, 65796, 59595 #### [facility] [address] [place] [address], [place] Oxygen saturation in Blood 68.0 % Normal 65.0-75.0 [facility] Comment on above: Performed By: #### 0 0121, 94120, 56882, 03812, 09309 #### [facility] [address] [place] [address], [place] THB 13.2 g/dL Normal [facility] Comment on above: Performed By: #### 0 0121, 86282, 15973, 36228, 62037 #### [facility] [address] [facility] [address] CPK-MB PROFILEon 03-20-2019 CK [Catalytic activity/Vol] 2914 U/L Critically high 30-223 [facility] Comment on above: Order Comment: << On admission If not done in ED>> No: Do not add to previous draw Performed By: #### 0 0121, 86488, 84603, 38230, 31512 #### [facility] [address] CK.MB [Mass/Vol] 3.8 ng/mL Critically high 0.0-1.9 [facility] Comment on above: Order Comment: << On admission If not done in ED>> No: Do not add to previous draw Result Comment: M-CR ITICAL RESULT(S) REVIEWED, CALLED TO AND READ BACK BY DAKOTAH MONTANO RN AT 0550 Performed By: #### 0 0121, 69589, 08679, 32132, 79041 #### [facility] [address] CK.MB [Mass/Vol] 111.1 ng/mL High 0.0-5.0 [facility] Comment on above: Order Comment: << On admission If not done in ED>> No: Do not add to previous draw Result Comment: IF T OTAL CK <200 U/L AND: 1. CKMB IS 5-10 NG/ML----BORDERLINE 2. CKMB IS >10 NG/ML----INDICATIVE OF [place] OR IF TOTAL CK >200 U/L AND CKMB INDEX >1.9----INDICATIVE OF [place] Performed By: #### 0 0121, 89627, 21315, 03494, 22914 #### [facility] [address] [facility] [place] [address], [facility] LACTATE BLOODon 03-20-2019 Lactate [Moles/Vol] 1.9 mmol/L Normal 0.5-2.[address] [facility] Comment on above: Order Comment: << On admission If not done in ED>> No: Do not add to previous draw Performed By: #### 0 0121, 19923, 00034, 51545, 85909 #### [facility] [address] [place] [address], [facility] Lactate [Moles/Vol] 3.1 mmol/L Critically high 0.5-2.2 [facility] Comment on above: Order Comment: << On admission If not done in ED>> No: Do not add to previous draw Result Comment: M-PA EVIOUS CRITICAL RESULT Performed By: #### 0 0121, 20424, 10001, 41160, 08023 #### [facility] [address] [place] [address], [facility] Lactate [Moles/Vol] 2.7 mmol/L Critically high 0.5-2.2 [facility] Comment on above: Order Comment: << On admission If not done in ED>> No: Do not add to previous draw Result Comment: M-PA EVIOUS CRITICAL RESULT Performed By: #### 0 0121, 88628, 79950, 29275, 03872 #### [facility] [address] [place] [address], [facility] MAGNESIUM BLOODon 03-20-2019 Magnesium [Mass/Vol] 2.1 mg/dL Normal 1.9-2.7 [facility] Comment on above: Order Comment: << On admission If not done in ED>> No: Do not add to previous draw Performed By: #### 0 0121, 56816, 83185, 12908, 94285 #### [facility] [address] [place] [address], [facility] Magnesium [Mass/Vol] 2.3 mg/dL Normal 1.9-2.7 [facility] Comment on above: Order Comment: << On admission If not done in ED>> No: Do not add to previous draw Performed By: #### 0 0121, 68659, 49175, 65436, 86887 #### [facility] [address] [place] [address], [facility] Magnesium [Mass/Vol] 2.4 mg/dL Normal 1.9-2.7 [facility] Comment on above: Order Comment: << On admission If not done in ED>> No: Do not add to previous draw Performed By: #### 0 0121, 03439, 13589, 73187, 50224 #### [facility] [address] [place], [place] [address] [place] [address] Operative Reporton 9 Operative Report MR#: [id number] I [facility] Pt. Name: Tracie Crain Room #: [id number] Discharge Date: Birthdate: 1965 OPERATIVE REPORT DATE [...] Black MD Date Trans: 03/20/2019 02:34 A/bessie [id number] cc: Titus Villegas M.D. [address], [facility] [place] [address] [place] [facility] Operative Report MR#: [id number] I [facility] Pt. Name: Tracie Crain Room #: [id number] Discharge Date: Birthdate: 1965 OPERATIVE REPORT DATE [...] and posteromedial papillary muscle. These were 4.0 [place] stitches and they were brought out in [...] Black MD Date Trans: 03/20/2019 02:21 A/bessie [id number] cc: Titus Villegas M.D. [address] [facility] [place] [facility] [address] Normal [facility] POC GLUCOSE LABon 03-20-2019 Glucose [Mass/Vol] 117 mg/dL High 70-100 [facility] Comment on above: Performed By: #### 0 0121, 35735, 76887, 93873, 14181 #### [facility] [address] [place] [address], [place] Glucose [Mass/Vol] 114 mg/dL High 70-100 [facility] Comment on above: Performed By: #### 0 0121, 36960, 37034, 58904, 65923 #### [facility] [address] [place] [address], [place] Glucose [Mass/Vol] 117 mg/dL High 70-100 [facility] Comment on above: Performed By: #### 0 0121, 68118, 49528, 04121, 01673 #### [facility] [address] [place] [address], [place] Glucose [Mass/Vol] 99 mg/dL Normal 70-[address] [facility] Comment on above: Performed By: #### 0 0121, 89181, 07641, 94103, 40995 #### [facility] [address] [place] [address], [place] Glucose [Mass/Vol] 125 mg/dL High 70-100 [facility] Comment on above: Performed By: #### 0 0121, 40740, 58280, 03292, 82745 #### [facility] [address] [place] [address], [place] Glucose [Mass/Vol] 102 mg/dL High 70-100 [facility] Comment on above: Performed By: #### 0 0121, 48980, 08410, 46456, 47408 #### [facility] [address] [place] [address], [place] Glucose [Mass/Vol] 97 mg/dL Normal 70-100 [facility] Comment on above: Performed By: #### 0 0121, 05511, 60158, 05894, 25963 #### [facility] [address] [place] [address], [place] Glucose [Mass/Vol] 102 mg/dL High 70-100 [facility] Comment on above: Performed By: #### 0 0121, 22451, 12263, 69253, 28554 #### [facility] [address] [place] [address], [place] Glucose [Mass/Vol] 124 mg/dL High 70-100 [facility] Comment on above: Performed By: #### 0 0121, 51343, 56903, 83274, 03707 #### [facility] [address] [place] [address], [place] Glucose [Mass/Vol] 112 mg/dL High 70-100 [facility] Comment on above: Order Comment: << On admission If not done in ED>> No: Do not add to previous draw Performed By: #### 0 0121, 24137, 81641, 68809, 86369 #### [facility] [address] [place] [address], [place] Glucose [Mass/Vol] 129 mg/dL High 70-100 [facility] Comment on above: Performed By: #### 0 0121, 76207, 15484, 19073, 56865 #### [facility] [address] [place] [address], [place] Glucose [Mass/Vol] 122 mg/dL High 70-100 [facility] Comment on above: Performed By: #### 0 0121, 48029, 18279, 14041, 41548 #### [facility] [address] [place] [address], [place] Glucose [Mass/Vol] 133 mg/dL High 70-100 [facility] Comment on above: Performed By: #### 0 0121, 99574, 59377, 55843, 16878 #### [facility] [address] [facility] [address], [facility] Glucose [Mass/Vol] 130 mg/dL High 70-100 [facility] Comment on above: Performed By: #### 5 7307 #### [facility] [address] [facility] [address], [facility] Glucose [Mass/Vol] 142 mg/dL High 70-100 [facility] Comment on above: Performed By: #### 5 7307 #### [address] [address], [facility] PORTABLE CHEST 1 VIEWon 03-01 PORTABLE CHEST 1 VIEW [facility] Department of Radiology [address] [place] [phone] ======== Patient Name: TRACIE CRAIN : 1965 Sex: M Age: Race: NA Pt. Location: [id number] Patient Status: I Ordered Date: 03/20/2019 8:05:00 [...] tube is 7 cm from the loki. Oto-Sher catheter with tip projecting over the pulmonary [...] findings. Electronically signed by:Yenni Osuna. Transcribed by: [email or web address], User Resident: ANAI ALVARADO Electronically Signed by: YENNI OSUNA @ 03/22/2019 11:07 AM I personally read this/these film(s) with this resident Normal The [facility] Comment on above: Order Comment: << On admission If not done in ED>> No: Do not add to previous draw PORTABLE CHEST 1 VIEW [facility] Department of Radiology [address] [place] [phone] ======== Patient Name: TRACIE CRAIN : 1965 Sex: M Age: Race: NA Pt. Location: [id number] Patient Status: I Ordered Date: 03/20/2019 5:00:00 [...] tube is 7 cm from the loki. Oto-Sher catheter with tip projecting over the pulmonary [...] findings. Electronically signed by:Divya Collins. Transcribed by: [email or web address], User Resident: ANAI ALVARADO Electronically Signed by: DIVYA COLLINS @ 03/20/2019 11:01 AM I personally read this/these film(s) with this resident Normal The [facility] Comment on above: Order Comment: << On admission If not done in ED>> No: Do not add to previous draw PROTHROMBIN TIMEon 9 INR Coag (PPP) [Relative time] 1.37 {INR} High 0.91-1.16 The [facility] Comment on above: Order Comment: << On [...] CHEST 1995;[id number]. Performed By: #### 0 0121, 55111, 71182, 32457, 87584 #### [facility] [address] PT Coag (PPP) [Time] 16.9 s High 12.3-14.8 The [facility] Comment on above: Order Comment: << On admission If not done in ED>> No: Do not add to previous draw Result Comment: ALL RESULTS MUST BE INTERPRETED WITH RESPECT TO BLOOD DRAWING ARTIFACT OR DILUTION ERROR OF ANTICOAGULANT AT THE TIME OF SAMPLING. Performed By: #### 0 0121, 86377, 03478, 19370, 27785 #### [facility] [address] [place] [address], [facility] ACTIVATED CLOTTING TIMEon ACTIVATED CLOTTING TIME 115 sec Normal 82-152 The [facility] Comment on above: Performed By: #### 8 5123, 08178 #### [facility] [address] [place] [address], [place] ACTIVATED CLOTTING TIME 508 sec High 82-152 The [facility] Comment on above: Performed By: #### 8 5123, 69173 #### [facility] [address] [place] [address], [place] ACTIVATED CLOTTING TIME 508 sec High 82-152 The [facility] Comment on above: Performed By: #### 8 5123, 68361 #### [facility] [address] [place] [address], [place] ACTIVATED CLOTTING TIME 610 sec High 82-152 The [facility] Comment on above: Performed By: #### 8 5123, 37148 #### [facility] [address] [place] [address], [place] ACTIVATED CLOTTING TIME 621 sec High 82-152 The [facility] Comment on above: Performed By: #### 8 5123, 41301 #### [facility] [address] [place] [address], [place] ACTIVATED CLOTTING TIME 660 sec High 82-152 The [facility] Comment on above: Performed By: #### 8 5123, 27471 #### [facility] [address] [place] [address], [place] ACTIVATED CLOTTING TIME 508 sec High 82-152 The [facility] Comment on above: Performed By: #### 8 5123, 84196 #### [facility] [address] [place] [address], [place] ACTIVATED CLOTTING TIME 514 sec High 82-152 The [facility] Comment on above: Performed By: #### 0 0121, 49648, 42079, 26783, 23435 #### [facility] [address] [place] [address], [place] ACTIVATED CLOTTING TIME 514 sec High 82-152 The [facility] Comment on above: Performed By: #### 0 0121, 29636, 15658, 15921, 84775 #### [facility] [address] [place] [address], [facility] ACTIVATED CLOTTING TIME 502 sec High 82-152 The [facility] Comment on above: Performed By: #### 0 0121, 53506, 84067, 75916, 43981 #### [facility] [address] [place] [address], [facility] ACTIVATED CLOTTING TIME 473 sec High 82-152 The [facility] Comment on above: Performed By: #### 0 0121, 23334, 59836, 01176, 16337 #### [facility] [address] [place] [address], [facility] ACTIVATED CLOTTING TIME 508 sec High 82-152 The [facility] Comment on above: Performed By: #### 0 0121, 24430, 18507, 87663, 89034 #### [facility] [address] [place], [place] [address] ACTIVATED CLOTTING TIME 115 sec Normal 82-152 The [facility] Comment on above: Performed By: #### 0 0121, 57787, 04617, 81168, 83479 #### [facility] [address] [place] [id number] APTTon 03-19-2019 aPTT Coag (Bld) [Time] 28.6 s Normal 25.0-35.0 The [facility] Comment on above: Result Comment: ALL RESULTS [...] THIS PURPOSE. Performed By: #### 8 5123, 65318 #### [facility] [address] [place] [address], [facility] aPTT Coag (Bld) [Time] 33.6 s Normal 25.0-35.0 [facility] Comment on above: Order Comment: If no [...] THIS PURPOSE. Performed By: #### 0 0121, 90764, 91402, 79362, 25085 #### [facility] [address] [place] [address], [facility] ARTERIAL BLOOD GAS W/COOXon 03-19-2019 BASE EXCESS -8 mmol/L Low -2-3 [facility] Comment on above: Performed By: #### 8 7491, 89976 ####[facility] [facility] [address], [facility] COHB 2.6 % High 0.0-1.5 [facility] Comment on above: Performed By: #### 8 486, 03144 ####[facility] [facility] [address], [facility] DELIVERY SYSTEMS VENT Normal [facility] Comment on above: Performed By: #### 8 291, 22448 ####[facility] [facility] [address], [facility] FIO2 100 % Normal [facility] Comment on above: Performed By: #### 8 6121, 70550 ####[facility] [place] [address], [facility] HCO3 (Bld) [Moles/Vol] 19 mmol/L Low 21-28 The [facility] Comment on above: Performed By: #### 8 313, 26743 ####[facility] [place] [address], [place] METHB 0.8 % Normal 0.0-1.5 [facility] Comment on above: Performed By: #### 8 4511, 46858 ####[facility] [place] [address], [place] MIN VOLUME 11.6 Normal [facility] Comment on above: Performed By: #### 8 451, 68594 ####[facility] [place] [address], [place] MODALITY AC Normal The [facility] Comment on above: Performed By: #### 8 451, 92484 ####[facility] [place] [address], [place] Oxygen (Bld) [Partial pressure] 61 mm[Hg] Low 83-108 The [facility] Comment on above: Performed By: #### 8 079, 77300 ####[facility] [place] [address], [place] Oxygen saturation in Blood 88.9 % Low 94.0-97.0 The [facility] Comment on above: Performed By: #### 8 595, 42135 ####[facility] [place] [address], [place] PCO2 43 mmHg Normal 35-45 The [facility] Comment on above: Performed By: #### 8 954, 90986 ####[facility] [place] [address], [place] PEEP 10.0 CMH20 Normal [facility] Comment on above: Performed By: #### 8 612, 39549 ####[facility] [place] [address], [place] pH (Bld) 7.26 [pH] Low 7.35-7.45 The [facility] Comment on above: Result Comment: KINJAL REYNOSO NOTE: Effective 12/02/18, reference ranges for Respiratory GEM analyzers running arterial blood have been updated to reflect the employment advisor's published reference ranges. Performed By: #### 8 3951, 92330 ####[facility] [place] [address], [facility] THB 14.2 g/dL Normal 12.0-16.3 The [facility] Comment on above: Performed By: #### 8 8021, 85452 ####[facility] [place] [address], [facility] TIDAL VOLUME (VT) CC 700 cc Normal [facility] Comment on above: Performed By: #### 8 0861, 27952 ####[facility] [place] [address], [facility] ARTERIAL BLOOD GAS WITH ICAo n 03-19-2019 BASE EXCESS -4 mmol/L Low -2-3 [facility] Comment on above: Performed By: #### 5 7307 #### [facility] [address] [place] [address], [facility] [employer] MV Normal The [facility] Comment on above: Performed By: #### 5 7307 #### [facility] [address] [place] [address], [place] FIO2 100 % Normal The [facility] Comment on above: Performed By: #### 5 7307 #### [facility] [address] [place] [address], [place] HCO3 (Bld) [Moles/Vol] 20 mmol/L Low 21-28 The [facility] Comment on above: Performed By: #### 5 7307 #### [facility] [address] [place] [address], [place] IONIZED CALCIUM 1.21 mmol/L Normal 1.13-1.[address] [facility] Comment on above: Performed By: #### 5 7307 #### [facility] [address] [place] [address], [place] MIN VOLUME 13.6 Normal [facility] Comment on above: Performed By: #### 5 7307 #### [facility] [address] [place] [address], [place] MODALITY AC Normal The [facility] Comment on above: Performed By: #### 5 7307 #### [facility] [address] [place] [address], [place] Oxygen (Bld) [Partial pressure] 74 mm[Hg] Low 83-108 [facility] Comment on above: Performed By: #### 5 7307 #### [facility] [address] [place] [address], [place] Oxygen saturation in Blood 93.5 % Low 94.0-97.0 The [facility] Comment on above: Performed By: #### 5 7307 #### [facility] [address] [place] [address], [place] PCO2 33 mmHg Low 35-45 The [facility] Comment on above: Performed By: #### 5 7307 #### [facility] [address] [place] [address], [place] PEEP 10.0 CMH20 Normal The [facility] Comment on above: Performed By: #### 5 7307 #### [facility] [address] [place] [address], [place] PF RATIO 74 mmHg Normal [facility] Comment on above: Performed By: #### 5 7307 #### [facility] [address] [place] [address], [place] pH (Bld) 7.39 [pH] Normal 7.35-7.45 The [facility] Comment on above: Result Comment: PLEJhoan REYNOSO NOTE: Effective 12/02/18, reference ranges for Respiratory GEM analyzers running arterial blood have been updated to reflect the employment advisor's published reference ranges. Performed By: #### 5 7307 #### [facility] [address] TIDAL VOLUME (VT) CC 700 cc Normal [facility] Comment on above: Performed By: #### 5 7307 #### [facility] [address] BASE EXCESS -7 mmol/L Low -2-3 [facility] Comment on above: Order Comment: R/O P ulmonary Edema Performed By: #### 8 4021, 06833 ####[facility] DELIVERY SYSTEMS MV Normal The [facility] Comment on above: Order Comment: R/O P ulmonary Edema Performed By: #### 8 028, 25404 ####[facility] FIO2 100 % Normal [facility] Comment on above: Order Comment: R/O P ulmonary Edema Performed By: #### 8 4021, 97181 ####[facility] HCO3 (Bld) [Moles/Vol] 21 mmol/L Normal 21-28 The [facility] Comment on above: Order Comment: R/O P ulmonary Edema Performed By: #### 8 5371, 19512 ####[facility] IONIZED CALCIUM 1.36 mmol/L High 1.13-1.[address] [facility] Comment on above: Order Comment: R/O P ulmonary Edema Performed By: #### 8 068, 58272 ####[facility] MIN VOLUME 13.0 Normal [facility] Comment on above: Order Comment: R/O P ulmonary Edema Performed By: #### 8 4511, 57142 ####[facility] [place] [address], [facility] MODALITY SIMV Normal [facility] Comment on above: Order Comment: R/O P ulmonary Edema Performed By: #### 8 4511, 53511 ####[facility] [place] [address], [facility] Oxygen (Bld) [Partial pressure] 63 mm[Hg] Low 83-108 [facility] Comment on above: Order Comment: R/O P ulmonary Edema Performed By: #### 8 4511, 56583 ####[facility] [place] [address], [facility] Oxygen saturation in Blood 89.3 % Low 94.0-97.0 [facility] Comment on above: Order Comment: R/O P ulmonary Edema Performed By: #### 8 4511, 39210 ####[facility] [place] [address], [facility] PCO2 46 mmHg High 35-45 The [facility] Comment on above: Order Comment: R/O P ulmonary Edema Performed By: #### 8 4511, 77640 ####[facility] [place] [address], [place] PEEP 8.0 CMH20 Normal [facility] Comment on above: Order Comment: R/O P ulmonary Edema Performed By: #### 8 4511, 76567 ####[facility] [place] [address], [place] PF RATIO 63 mmHg Normal [facility] Comment on above: Order Comment: R/O P ulmonary Edema Performed By: #### 8 4511, 75843 ####[facility] [place] [address], [place] pH (Bld) 7.26 [pH] Low 7.35-7.45 The [facility] Comment on above: Order Comment: R/O P ulmonary Edema Result Comment: KINJAL REYNOSO NOTE: Effective 12/02/18, reference ranges for Respiratory GEM analyzers running arterial blood have been updated to reflect the employment advisor's published reference ranges. Performed By: #### 8 9121, 02049 ####[facility] [place] [address], [facility] PRESSURE SUPPORT [address] [facility] Comment on above: Order Comment: R/O P ulmonary Edema Performed By: #### 8 4511, 16409 ####[facility] [facility] [place] [address], [facility] TIDAL VOLUME (VT) CC 600 cc Normal The [facility] Comment on above: Order Comment: R/O P ulmonary Edema Performed By: #### 8 9591, 68024 ####[facility] [facility] [address], [facility] BASIC METABOLIC PANELon 06-2 0-2019 Calcium [Mass/Vol] 8.6 mg/dL Normal 8.6-10.[address] [facility] Comment on above: Order Comment: No: D o not add to previous draw Performed By: #### 5 7307 #### [facility] [address] [place] [address], [place] Chloride [Moles/Vol] 113 mmol/L High 98-107 The [facility] Comment on above: Order Comment: No: D o not add to previous draw Performed By: #### 5 7363 #### [facility] [address] [place] [address], [place] CO2 [Moles/Vol] 21 mmol/L Normal 21-31 The [facility] Comment on above: Order Comment: No: D o not add to previous draw Performed By: #### 5 7315 #### [facility] [address] [place] [address], [place] Creatinine [Mass/Vol] 1.14 mg/dL Normal 0.70-1.30 The [facility] Comment on above: Order Comment: No: D o not add to previous draw Performed By: #### 5 7307 #### [facility] [address] [place] [address], [place] GFR/1.73 sq M predicted among blacks MDRD (S/P/Bld) [Vol rate/Area] mL/min/{1.73_m2} Normal >60 The [facility] Comment on above: Order Comment: No: D o not add to previous draw Performed By: #### 5 7307 #### [facility] [address] [place] [address], [facility] GFR/1.73 sq M predicted among non-blacks MDRD (S/P/Bld) [Vol rate/Area] mL/min/{1.73_m2} Normal >60 The [facility] Comment on above: Order Comment: No: D o not add to previous draw Performed By: #### 5 7307 #### [facility] [address] [place] [address], [place] Glucose [Mass/Vol] 164 mg/dL High 70-[address] [facility] Comment on above: Order Comment: No: D o not add to previous draw Performed By: #### 5 7307 #### [facility] [address] [place] [address], [place] Potassium [Moles/Vol] 4.3 mmol/L Normal 3.5-5.1 The [facility] Comment on above: Order Comment: No: D o not add to previous draw Performed By: #### 5 7307 #### [facility] [address] [place] [address], [place] Sodium [Moles/Vol] 142 mmol/L Normal 136-[address] [facility] Comment on above: Order Comment: No: D o not add to previous draw Performed By: #### 5 7307 #### [facility] [address] [place] [address], [place] Urea nitrogen [Mass/Vol] 19 mg/dL Normal 7-25 The [facility] Comment on above: Order Comment: No: D o not add to previous draw Performed By: #### 5 7307 #### [facility] [address] [place] [address], [place] Calcium [Mass/Vol] 9.8 mg/dL Normal 8.6-10.3 [facility] Comment on above: Order Comment: If no t done in ED No: Do not add to previous draw Performed By: #### 8 5123, 02600 #### [facility] [address] [place] [address], [place] Chloride [Moles/Vol] 112 mmol/L High 98-107 The [facility] Comment on above: Order Comment: If no t done in ED No: Do not add to previous draw Performed By: #### 8 5123, 19416 #### [facility] [address] [place] [address], [place] CO2 [Moles/Vol] 21 mmol/L Normal 21-31 [facility] Comment on above: Order Comment: If no t done in ED No: Do not add to previous draw Performed By: #### 8 5123, 96066 #### [facility] [address] [place] [address], [place] Creatinine [Mass/Vol] 1.07 mg/dL Normal 0.70-1.30 The [facility] Comment on above: Order Comment: If no t done in ED No: Do not add to previous draw Performed By: #### 8 5123, 28458 #### [facility] [address] [place] [address], [place] GFR/1.73 sq M predicted among blacks MDRD (S/P/Bld) [Vol rate/Area] mL/min/{1.73_m2} Normal >60 The [facility] Comment on above: Order Comment: If no t done in ED No: Do not add to previous draw Performed By: #### 8 5123, 47640 #### [facility] [address] [place] [address], [place] GFR/1.73 sq M predicted among non-blacks MDRD (S/P/Bld) [Vol rate/Area] mL/min/{1.73_m2} Normal >60 The [facility] Comment on above: Order Comment: If no t done in ED No: Do not add to previous draw Performed By: #### 8 5123, 71597 #### [facility] [address] [place] [address], [place] Glucose [Mass/Vol] 147 mg/dL High 70-[address] [facility] Comment on above: Order Comment: If no t done in ED No: Do not add to previous draw Performed By: #### 8 5123, 95734 #### [facility] [address] [place] [address], [place] Potassium [Moles/Vol] 3.9 mmol/L Normal 3.5-5.1 The [facility] Comment on above: Order Comment: If no t done in ED No: Do not add to previous draw Performed By: #### 8 5123, 96738 #### [facility] [address] [place] [address], [place] Sodium [Moles/Vol] 142 mmol/L Normal 136-[address] [facility] Comment on above: Order Comment: If no t done in ED No: Do not add to previous draw Performed By: #### 8 5123, 03006 #### [facility] [address] [place] [address], [place] Urea nitrogen [Mass/Vol] 19 mg/dL Normal 7-25 The [facility] Comment on above: Order Comment: If no t done in ED No: Do not add to previous draw Performed By: #### 8 5123, 07621 #### [facility] [address] [place] [address], [place] Calcium [Mass/Vol] 9.5 mg/dL Normal 8.6-10.3 [facility] Comment on above: Order Comment: If no t done in ED No: Do not add to previous draw Performed By: #### 0 0121, 69624, 19095, 82961, 85465 #### [facility] [address] [place] [address], [place] Chloride [Moles/Vol] 105 mmol/L Normal 98-107 [facility] Comment on above: Order Comment: If no t done in ED No: Do not add to previous draw Performed By: #### 0 0121, 32860, 05798, 79678, 40249 #### [facility] [address] [place] [address], [place] CO2 [Moles/Vol] 24 mmol/L Normal 21-31 [facility] Comment on above: Order Comment: If no t done in ED No: Do not add to previous draw Performed By: #### 0 0121, 12299, 34868, 09340, 38228 #### [facility] [address] [place] [address], [place] Creatinine [Mass/Vol] 1.11 mg/dL Normal 0.70-1.30 [facility] Comment on above: Order Comment: If no t done in ED No: Do not add to previous draw Performed By: #### 0 0121, 92128, 25969, 21198, 36919 #### [facility] [address] [place] [address], [place] GFR/1.73 sq M predicted among blacks MDRD (S/P/Bld) [Vol rate/Area] mL/min/{1.73_m2} Normal >60 [facility] Comment on above: Order Comment: If no t done in ED No: Do not add to previous draw Performed By: #### 0 0121, 93282, 23692, 94696, 27228 #### [facility] [address] [place] [address], [place] GFR/1.73 sq M predicted among non-blacks MDRD (S/P/Bld) [Vol rate/Area] mL/min/{1.73_m2} Normal >60 [facility] Comment on above: Order Comment: If no t done in ED No: Do not add to previous draw Performed By: #### 0 0121, 02213, 42269, 27440, 79643 #### [facility] [address] [place] [address], [place] Glucose [Mass/Vol] 89 mg/dL Normal 70-[address] [facility] Comment on above: Order Comment: If no t done in ED No: Do not add to previous draw Performed By: #### 0 0121, 37897, 41372, 21865, 19035 #### [facility] [address] [place] [address], [place] Potassium [Moles/Vol] 4.2 mmol/L Normal 3.5-5.1 [facility] Comment on above: Order Comment: If no t done in ED No: Do not add to previous draw Performed By: #### 0 0121, 14590, 29800, 01655, 33597 #### [facility] [address] [place] [address], [place] Sodium [Moles/Vol] 135 mmol/L Low 136-[address] [facility] Comment on above: Order Comment: If no t done in ED No: Do not add to previous draw Performed By: #### 0 0121, 25142, 65758, 00738, 10189 #### [facility] [address] [place] [address], [place] Urea nitrogen [Mass/Vol] 17 mg/dL Normal 7-25 [facility] Comment on above: Order Comment: If no t done in ED No: Do not add to previous draw Performed By: #### 0 0121, 27100, 11036, 57952, 72740 #### [facility] [address] CBC COMPLETE BLOOD COUNTon 03-19-2019 Erythrocyte distribution width (RBC) [Ratio] 13.0 % Normal 11.5-15.0 [facility] Comment on above: Order Comment: No: D o not add to previous draw Performed By: #### 5 7307 #### [facility] [address] Hematocrit (Bld) [Volume fraction] 42.7 % Normal 39.0-50.0 [facility] Comment on above: Order Comment: No: D o not add to previous draw Performed By: #### 5 7307 #### [facility] [address] Hemoglobin (Bld) [Mass/Vol] 14.3 g/dL Normal 13.0-17.0 [facility] Comment on above: Order Comment: No: D o not add to previous draw Performed By: #### 5 7307 #### [facility] [address] [place] [address], [facility] MCH (RBC) [Entitic mass] 29.4 pg Normal 27.0-33.0 [facility] Comment on above: Order Comment: No: D o not add to previous draw Performed By: #### 5 7307 #### [facility] [address] [place] [address], [facility] MCHC (RBC) [Mass/Vol] 33.5 g/dL Normal 32.0-35.0 [facility] Comment on above: Order Comment: No: D o not add to previous draw Performed By: #### 5 7307 #### [facility] [address] [place] [address], [facility] MCV (RBC) [Entitic vol] 87.9 fL Normal 82.0-98.0 [facility] Comment on above: Order Comment: No: D o not add to previous draw Performed By: #### 5 7307 #### [facility] [address] [place] [address], [facility] Nucleated RBC/100 WBC (Bld) [Ratio] 0 % Normal 0-0 [facility] Comment on above: Order Comment: No: D o not add to previous draw Performed By: #### 5 7307 #### [facility] [address] [place] [address], [facility] PLAT CNT 179 10*3/uL Normal 150-400 [facility] Comment on above: Order Comment: No: D o not add to previous draw Performed By: #### 5 7307 #### [facility] [address] [place] [address], [facility] RBC (Bld) [#/Vol] 4.86 10*6/uL Normal 4.20-5.[address] [facility] Comment on above: Order Comment: No: D o not add to previous draw Performed By: #### 5 7307 #### [facility] [address] [facility] [place] [address], [facility] WBC (Bld) [#/Vol] 26.36 10*3/uL High 4.00-10.60 [facility] Comment on above: Order Comment: No: D o not add to previous draw Performed By: #### 5 7307 #### [facility] [address] [place] [address], [facility] Erythrocyte distribution width (RBC) [Ratio] 13.0 % Normal 11.5-15.0 [facility] Comment on above: Order Comment: R/O P ulmonary Edema Performed By: #### 5 0608 ####[facility] [place] [address], [facility] Hematocrit (Bld) [Volume fraction] 47.1 % Normal 39.0-50.0 [facility] Comment on above: Order Comment: R/O P ulmonary Edema Performed By: #### 5 0608 ####[facility] Hemoglobin (Bld) [Mass/Vol] 15.0 g/dL Normal 13.0-17.0 [facility] Comment on above: Order Comment: R/O P ulmonary Edema Performed By: #### 5 0608 ####[facility] MCH (RBC) [Entitic mass] 29.4 pg Normal 27.0-33.0 [facility] Comment on above: Order Comment: R/O P ulmonary Edema Performed By: #### 5 0608 ####[facility] MCHC (RBC) [Mass/Vol] 31.8 g/dL Low 32.0-35.0 [facility] Comment on above: Order Comment: R/O P ulmonary Edema Performed By: #### 5 0608 ####[facility] MCV (RBC) [Entitic vol] 92.4 fL Normal 82.0-98.0 [facility] Comment on above: Order Comment: R/O P ulmonary Edema Performed By: #### 5 0608 ####[facility] Nucleated RBC/100 WBC (Bld) [Ratio] 0 % Normal 0-0 [facility] Comment on above: Order Comment: R/O P ulmonary Edema Performed By: #### 5 0608 ####[facility] PLAT CNT 188 10*3/uL Normal 150-400 [facility] Comment on above: Order Comment: R/O P ulmonary Edema Performed By: #### 5 0608 ####[facility] [place] [address], [place] RBC (Bld) [#/Vol] 5.10 10*6/uL Normal 4.20-5.70 [facility] Comment on above: Order Comment: R/O P ulmonary Edema Performed By: #### 5 0608 ####[facility] [place] [address], [facility] WBC (Bld) [#/Vol] 31.20 10*3/uL High 4.00-10.60 [facility] Comment on above: Order Comment: R/O P ulmonary Edema Performed By: #### 5 0608 ####[facility] [place] [address], [facility] Erythrocyte distribution width (RBC) [Ratio] 13.0 % Normal 11.5-15.0 [facility] Comment on above: Order Comment: If no t done in ED No: Do not add to previous draw Performed By: #### 8 3163, 04812 #### [facility] [address] [place] [address], [place] Hematocrit (Bld) [Volume fraction] 44.2 % Normal 39.0-50.0 [facility] Comment on above: Order Comment: If no t done in ED No: Do not add to previous draw Performed By: #### 8 5470, 58650 #### [facility] [address] [place] [address], [place] Hemoglobin (Bld) [Mass/Vol] 14.4 g/dL Normal 13.0-17.0 [facility] Comment on above: Order Comment: If no t done in ED No: Do not add to previous draw Performed By: #### 8 3393, 60704 #### [facility] [address] [place] [address], [place] MCH (RBC) [Entitic mass] 28.8 pg Normal 27.0-33.0 [facility] Comment on above: Order Comment: If no t done in ED No: Do not add to previous draw Performed By: #### 8 5123, 54988 #### [facility] [address] [place] [address], [facility] MCHC (RBC) [Mass/Vol] 32.6 g/dL Normal 32.0-35.0 [facility] Comment on above: Order Comment: If no t done in ED No: Do not add to previous draw Performed By: #### 8 5123, 42050 #### [facility] [address] [place] [id number], [facility] MCV (RBC) [Entitic vol] 88.4 fL Normal 82.0-98.0 [facility] Comment on above: Order Comment: If no t done in ED No: Do not add to previous draw Performed By: #### 8 5123, 68166 #### [facility] [address] [place] [id number], [facility] Nucleated RBC/100 WBC (Bld) [Ratio] 0 % Normal 0-0 [facility] Comment on above: Order Comment: If no t done in ED No: Do not add to previous draw Performed By: #### 8 5123, 08534 #### [facility] [address] [place] [address], [facility] PLAT CNT 166 10*3/uL Normal 150-400 [facility] Comment on above: Order Comment: If no t done in ED No: Do not add to previous draw Performed By: #### 8 5123, 70251 #### [facility] [address] [place] [id number], [facility] RBC (Bld) [#/Vol] 5.00 10*6/uL Normal 4.20-5.[address] [facility] Comment on above: Order Comment: If no t done in ED No: Do not add to previous draw Performed By: #### 8 5123, 35389 #### [facility] [address] [place] [address], [facility] WBC (Bld) [#/Vol] 33.13 10*3/uL High 4.00-10.60 [facility] Comment on above: Order Comment: If no t done in ED No: Do not add to previous draw Performed By: #### 8 5123, 11173 #### [facility] [address] [place] [address], [facility] Erythrocyte distribution width (RBC) [Ratio] 13.0 % Normal 11.5-15.0 [facility] Comment on above: Order Comment: If no t done in ED No: Do not add to previous draw Performed By: #### 0 0121, 13833, 13207, 05728, 97712 #### [facility] [address] [place] [address], [facility] Hematocrit (Bld) [Volume fraction] 55.7 % High 39.0-50.0 [facility] Comment on above: Order Comment: If no t done in ED No: Do not add to previous draw Performed By: #### 0 0121, 65908, 30383, 14894, 47268 #### [facility] [address] [place] [address], [facility] Hemoglobin (Bld) [Mass/Vol] 18.2 g/dL High 13.0-17.0 [facility] Comment on above: Order Comment: If no t done in ED No: Do not add to previous draw Performed By: #### 0 0121, 34140, 01436, 59094, 37051 #### [facility] [address] [place] [address], [facility] MCH (RBC) [Entitic mass] 28.6 pg Normal 27.0-33.0 [facility] Comment on above: Order Comment: If no t done in ED No: Do not add to previous draw Performed By: #### 0 0121, 60963, 66216, 40539, 14616 #### [facility] [address] [place] [address], [facility] MCHC (RBC) [Mass/Vol] 32.7 g/dL Normal 32.0-35.0 [facility] Comment on above: Order Comment: If no t done in ED No: Do not add to previous draw Performed By: #### 0 0121, 09228, 61382, 92791, 81453 #### [facility] [address] [place] [address], [facility] MCV (RBC) [Entitic vol] 87.4 fL Normal 82.0-98.0 [facility] Comment on above: Order Comment: If no t done in ED No: Do not add to previous draw Performed By: #### 0 0121, 33015, 13599, 04699, 57337 #### [facility] [address] [place] [address], [facility] Nucleated RBC/100 WBC (Bld) [Ratio] 0 % Normal 0-0 [facility] Comment on above: Order Comment: If no t done in ED No: Do not add to previous draw Performed By: #### 0 0121, 17260, 79702, 32956, 31990 #### [facility] [address] [place] [address], [facility] PLAT CNT 288 10*3/uL Normal 150-400 [facility] Comment on above: Order Comment: If no t done in ED No: Do not add to previous draw Performed By: #### 0 0121, 54850, 30160, 69930, 56140 #### [facility] [address] [place] [id number], [facility] RBC (Bld) [#/Vol] 6.37 10*6/uL High 4.20-5.[address] [facility] Comment on above: Order Comment: If no t done in ED No: Do not add to previous draw Performed By: #### 0 0121, 67459, 59979, 82231, 22374 #### [facility] [address] [place] [address], [facility] WBC (Bld) [#/Vol] 11.26 10*3/uL High 4.00-10.60 [facility] Comment on above: Order Comment: If no t done in ED No: Do not add to previous draw Performed By: #### 0 0121, 92796, 62089, 03760, 62139 #### [facility] [address] [place] [address], [facility] COMP METABOLIC PANELon 03-19 Albumin [Mass/Vol] 3.8 g/dL Normal 3.5-5.7 [facility] Comment on above: Order Comment: R/O P ulmonary Edema Performed By: #### 0 0121, 98259, 54535 ####[facility] ALKALINE PHOSPH 30 IU/L Low 34-104 [facility] Comment on above: Order Comment: R/O P ulmonary Edema Performed By: #### 0 0121, 69127, 35940 ####[facility] ALT [Catalytic activity/Vol] 37 U/L Normal 7-52 [facility] Comment on above: Order Comment: R/O P ulmonary Edema Performed By: #### 0 0121, 51451, 23509 ####[facility] AST [Catalytic activity/Vol] 154 U/L High 13-39 [facility] Comment on above: Order Comment: R/O P ulmonary Edema Performed By: #### 0 0121, 12477, 58973 ####[facility] [place] [address], [facility] Bilirubin [Mass/Vol] 1.9 mg/dL High 0.3-1.0 [facility] Comment on above: Order Comment: R/O P ulmonary Edema Performed By: #### 0 0121, 92273, 14416 ####[facility] [place] [address], [facility] Calcium [Mass/Vol] 8.9 mg/dL Normal 8.6-10.3 [facility] Comment on above: Order Comment: R/O P ulmonary Edema Performed By: #### 0 0121, 00944, 46050 ####[facility] [facility] [place] [address], [facility] Chloride [Moles/Vol] 113 mmol/L High 98-107 [facility] Comment on above: Order Comment: R/O P ulmonary Edema Performed By: #### 0 0121, 50120, 88225 ####[facility] [place] [address], [facility] CO2 [Moles/Vol] 13 mmol/L Critically low 21-31 [facility] Comment on above: Order Comment: R/O P ulmonary Edema Result Comment: M-CR ITICAL RESULT(S) REVIEWED, CALLED TO AND READ BACK BY PEDRO CEDENO @[facility] 03.19.19 Performed By: #### 0 0121, 24121, 35850 ####[facility] [place] [address], [facility] Creatinine [Mass/Vol] 1.11 mg/dL Normal 0.70-1.30 [facility] Comment on above: Order Comment: R/O P ulmonary Edema Performed By: #### 0 0121, 50325, 31199 ####[facility] [place] [address], [facility] GFR/1.73 sq M predicted among blacks MDRD (S/P/Bld) [Vol rate/Area] mL/min/{1.73_m2} Normal >60 [facility] Comment on above: Order Comment: R/O P ulmonary Edema Performed By: #### 0 0121, 84194, 05630 ####[facility] [facility] [place] [address], [facility] GFR/1.73 sq M predicted among non-blacks MDRD (S/P/Bld) [Vol rate/Area] mL/min/{1.73_m2} Normal >60 [facility] Comment on above: Order Comment: R/O P ulmonary Edema Performed By: #### 0 0121, 92730, 79106 ####[facility] [facility] [place] [address], [facility] Glucose [Mass/Vol] 132 mg/dL High 70-[address] [facility] Comment on above: Order Comment: R/O P ulmonary Edema Performed By: #### 0 0121, 84164, 10487 ####[facility] [facility] [place] [address], [facility] Potassium [Moles/Vol] 4.4 mmol/L Normal 3.5-5.1 [facility] Comment on above: Order Comment: R/O P ulmonary Edema Performed By: #### 0 0121, 57262, 93584 ####[facility] [facility] [place] [address], [facility] Protein [Mass/Vol] 5.6 g/dL Low 6.0-8.3 [facility]: Order Comment: R/O P ulmonary Edema Performed By: #### 0 0121, 61899, 23591 ####[facility] [facility] [place] [address], [place] Sodium [Moles/Vol] 140 mmol/L Normal 136-[address] [facility] Comment on above: Order Comment: R/O P ulmonary Edema Performed By: #### 0 0121, 97263, 82935 ####[facility] [place] [address], [place] Urea nitrogen [Mass/Vol] 18 mg/dL Normal 7-25 [facility] Comment on above: Order Comment: R/O P ulmonary Edema Performed By: #### 0 0121, 26311, 80797 ####[facility] [place] [address], [place] COOXIMETRYon 03-19-2019 COHB 2 % Normal [facility] Comment on above: Order Comment: No: D o not add to previous draw Performed By: #### 5 7307 #### [facility] [address] [place] [address], [place] METHB 1 % Normal [facility] Comment on above: Order Comment: No: D o not add to previous draw Performed By: #### 5 7307 #### [facility] [address] [place] [address], [place] Oxygen saturation in Blood 66.9 % Normal 65.0-75.0 [facility] Comment on above: Order Comment: No: D o not add to previous draw Performed By: #### 5 7307 #### [facility] [address] [place] [address], [place] THB 13.1 g/dL Normal [facility] Comment on above: Order Comment: No: D o not add to previous draw Performed By: #### 5 7307 #### [facility] [address] [place] [address], [place] COHB 2 % Normal [facility] Comment on above: Performed By: #### 7 0207 ####[facility] [place] [address], [place] METHB 1 % Normal [facility] Comment on above: Performed By: #### 7 0207 ####[facility] [place] [address], [place] Oxygen saturation in Blood 59.2 % Low 65.0-75.0 [facility] Comment on above: Performed By: #### 7 0207 ####[facility] [place] [address], [facility] THB 14.0 g/dL Normal [facility] Comment on above: Performed By: #### 7 0207 ####[facility] [place] [address], [facility] LACTATE BLOODon 03-19-2019 Lactate [Moles/Vol] 2.6 mmol/L Critically high 0.5-2.2 [facility] Comment on above: Order Comment: No: D o not add to previous draw Result Comment: M-CR ITICAL RESULT(S) REVIEWED, CALLED TO AND READ BACK BY PEDRO MONTANO @2136 03.19.19 Performed By: #### 5 7307 #### [facility] [address] [place] [address], [facility] MAGNESIUM BLOODon 03-19-2019 Magnesium [Mass/Vol] 2.4 mg/dL Normal 1.9-2.7 [facility] Comment on above: Order Comment: No: D o not add to previous draw Performed By: #### 5 7307 #### [facility] [address] [place] [address], [facility] Magnesium [Mass/Vol] 2.7 mg/dL Normal 1.9-2.7 [facility] Comment on above: Order Comment: R/O P ulmonary Edema Performed By: #### 0 0121, 31645, 71517 ####[facility] [place] [address], [facility] Magnesium [Mass/Vol] 2.9 mg/dL High 1.9-2.7 [facility] Comment on above: Performed By: #### 8 5123, 59144 #### [facility] [address] [place] [address], [place] PERFUSION BLOOD PANELon 03-01 BASE EXCESS -4.0 mmol/L Low -2.0-3.0 The [facility] Comment on above: Performed By: #### 8 5123, 99169 #### [facility] [address] [place] [address], [place] Glucose [Mass/Vol] 143 mg/dL High 70-105 [facility] Comment on above: Performed By: #### 8 5123, 39747 #### [facility] [address] [place] [address], [place] Hematocrit (Bld) [Volume fraction] 39 % Normal 38-51 [facility] Comment on above: Performed By: #### 8 5123, 79066 #### [facility] [address] [place] [address], [place] Hemoglobin (Bld) [Mass/Vol] 13.3 g/dL Normal 12.0-17.0 [facility] Comment on above: Performed By: #### 8 5123, 05027 #### [facility] [address] [place] [address], [place] IONIZED CALCIUM 1.58 mmol/L Critically high 1.12-1.32 [facility] Comment on above: Performed By: #### 8 5123, 79391 #### [facility] [address] [place] [address], [place] Oxygen (Bld) [Partial pressure] 59.0 mm[Hg] Low 80.0-105.0 [facility] Comment on above: Performed By: #### 8 5123, 95787 #### [facility] [address] [place] [address], [place] PCO2 35.4 mmHg Normal 35.0-45.0 [facility] Comment on above: Performed By: #### [id number], [id number] #### [facility] [address] [place] [place] [address], [place] pH (Bld) 7.37 [pH] Normal 7.35-7.45 [facility] Comment on above: Performed By: #### [id number], [id number] #### [facility] [address] [place] [address], [place] Potassium [Moles/Vol] 3.7 mmol/L Normal 3.5-4.9 [facility] Comment on above: Performed By: #### 8 5123, 01164 #### [facility] [address] [place] [address], [place] Sodium [Moles/Vol] 144 mmol/L Normal 138-[address] [facility] Comment on above: Performed By: #### 8 5123, 82698 #### [facility] [address] [place] [address], [place] BASE EXCESS -5.0 mmol/L Low -2.0-3.0 [facility] Comment on above: Performed By: #### 8 5123, 62420 #### [facility] [address] [place] [address], [place] Glucose [Mass/Vol] 158 mg/dL High 70-[address] [facility] Comment on above: Performed By: #### 8 5123, 18417 #### [facility] [address] [place] [address], [place] Hematocrit (Bld) [Volume fraction] 41 % Normal 38-51 [facility] Comment on above: Performed By: #### 8 5123, 97022 #### [facility] [address] [place] [address], [place] Hemoglobin (Bld) [Mass/Vol] 13.9 g/dL Normal 12.0-17.0 [facility] Comment on above: Performed By: #### 8 5123, 99751 #### [facility] [address] [place] [address], [place] IONIZED CALCIUM 1.34 mmol/L High 1.12-1.32 [facility] Comment on above: Performed By: #### 8 5123, 56521 #### [facility] [address] [place] [address], [place] Oxygen (Bld) [Partial pressure] 51.0 mm[Hg] Low 80.0-105.0 [facility] Comment on above: Performed By: #### 8 5123, 71972 #### [facility] [address] [place] [address], [place] PCO2 34.5 mmHg Low 35.0-45.0 [facility] Comment on above: Performed By: #### 8 5123, 87963 #### [facility] [address] [place] [address], [place] pH (Bld) 7.36 [pH] Normal 7.35-7.45 [facility] Comment on above: Performed By: #### 8 5123, 24035 #### [facility] [address] [place] [address], [place] Potassium [Moles/Vol] 4.2 mmol/L Normal 3.5-4.9 [facility] Comment on above: Performed By: #### 8 5123, 57246 #### [facility] [address] [place] [address], [place] Sodium [Moles/Vol] 142 mmol/L Normal 138-146 [facility] Comment on above: Performed By: #### 8 5123, 17758 #### [facility] [address] [place] [address], [place] BASE EXCESS -1.0 mmol/L Normal -2.0-3.0 [facility] Comment on above: Performed By: #### 8 5123, 44683 #### [facility] [address] [place] [address], [place] Glucose [Mass/Vol] 163 mg/dL High 70-105 [facility] Comment on above: Performed By: #### 8 5123, 30846 #### [facility] [address] [place] [address], [place] Hematocrit (Bld) [Volume fraction] 42 % Normal 38-51 [facility] Comment on above: Performed By: #### 8 5123, 04189 #### [facility] [address] [place] [address], [place] Hemoglobin (Bld) [Mass/Vol] 14.3 g/dL Normal 12.0-17.0 [facility] Comment on above: Performed By: #### 8 5123, 87927 #### [facility] [address] [place] [address], [place] IONIZED CALCIUM 1.05 mmol/L Low 1.12-1.32 [facility] Comment on above: Performed By: #### 8 5123, 90562 #### [facility] [address] [place] [address], [place] Oxygen (Bld) [Partial pressure] 368.0 mm[Hg] High 80.0-105.0 [facility] Comment on above: Performed By: #### 8 5123, 17816 #### [facility] [address] [place] [address], [place] PCO2 39.7 mmHg Normal 35.0-45.0 [facility] Comment on above: Performed By: #### 8 5123, 61654 #### [facility] [address] [place] [address], [place] pH (Bld) 7.39 [pH] Normal 7.35-7.45 [facility] Comment on above: Performed By: #### 8 5123, 16271 #### [facility] [address] [place] [address], [place] Potassium [Moles/Vol] 3.9 mmol/L Normal 3.5-4.9 [facility] Comment on above: Performed By: #### 8 5123, 93786 #### [facility] [address] [place] [address], [place] Sodium [Moles/Vol] 145 mmol/L Normal 138-[address] [facility] Comment on above: Performed By: #### 8 5123, 40160 #### [facility] [address] [place] [address], [place] BASE EXCESS -4.0 mmol/L Low -2.0-3.0 [facility] Comment on above: Performed By: #### 8 5123, 78466 #### [facility] [address] [place] [address], [place] Glucose [Mass/Vol] 169 mg/dL High 70-105 [facility] Comment on above: Performed By: #### 8 5123, 93480 #### [facility] [address] [place] [address], [place] Hematocrit (Bld) [Volume fraction] 40 % Normal 38-51 [facility] Comment on above: Performed By: #### 8 5123, 34141 #### [facility] [address] [place] [address], [place] Hemoglobin (Bld) [Mass/Vol] 13.6 g/dL Normal 12.0-17.0 [facility] Comment on above: Performed By: #### 8 5123, 52136 #### [facility] [address] [place] [address], [place] IONIZED CALCIUM 1.37 mmol/L High 1.12-1.32 [facility] Comment on above: Performed By: #### 8 5123, 22928 #### [facility] [address] [place] [address], [place] Oxygen (Bld) [Partial pressure] 301.0 mm[Hg] High 80.0-105.0 [facility] Comment on above: Performed By: #### 8 5123, 70162 #### [facility] [address] [place] [address], [place] PCO2 36.1 mmHg Normal 35.0-45.0 [facility] Comment on above: Performed By: #### 8 5123, 47930 #### [facility] [address] [place] [address], [place] pH (Bld) 7.38 [pH] Normal 7.35-7.45 [facility] Comment on above: Performed By: #### 8 5123, 25514 #### [facility] [address] [place] [address], [place] Potassium [Moles/Vol] 4.9 mmol/L Normal 3.5-4.9 [facility] Comment on above: Performed By: #### 8 5123, 56967 #### [facility] [address] [place] [address], [place] Sodium [Moles/Vol] 137 mmol/L Low 138-[address] [facility] Comment on above: Performed By: #### 8 5123, 02418 #### [facility] [address] [place] [address], [place] BASE EXCESS -3.0 mmol/L Low -2.0-3.0 [facility] Comment on above: Performed By: #### 8 5123, 14389 #### [facility] [address] [place] [address], [place] Glucose [Mass/Vol] 174 mg/dL High 70-[address] [facility] Comment on above: Performed By: #### 8 5123, 21208 #### [facility] [address] [place] [address], [facility] Hematocrit (Bld) [Volume fraction] 45 % Normal 38-51 [facility] Comment on above: Performed By: #### 8 5123, 98407 #### [facility] [address] [place] [address], [place] Hemoglobin (Bld) [Mass/Vol] 15.3 g/dL Normal 12.0-17.0 [facility] Comment on above: Performed By: #### 8 5123, 65845 #### [facility] [address] [place] [address], [facility] IONIZED CALCIUM 1.06 mmol/L Low 1.12-1.32 [facility] Comment on above: Performed By: #### 8 512, 00081 #### [facility] [address] [place] [address], [facility] Oxygen (Bld) [Partial pressure] 404.0 mm[Hg] High 80.0-105.0 [facility] Comment on above: Performed By: #### 8 512, 21456 #### [facility] [address] [place] [address], [facility] PCO2 42.4 mmHg Normal 35.0-45.0 [facility] Comment on above: Performed By: #### 8 5123, 23172 #### [facility] [address] [place] [address], [facility] pH (Bld) 7.35 [pH] Normal 7.35-7.45 [facility] Comment on above: Performed By: #### 8 5123, 39943 #### [facility] [address] [place] [address], [facility] Potassium [Moles/Vol] 4.7 mmol/L Normal 3.5-4.9 [facility] Comment on above: Performed By: #### 8 5123, 44843 #### [facility] [address] [place] [address], [facility] Sodium [Moles/Vol] 141 mmol/L Normal 138-[address] [facility] Comment on above: Performed By: #### 8 5123, 99051 #### [facility] [address] [place] [address], [place] BASE EXCESS -2.0 mmol/L Normal -2.0-3.0 [facility] Comment on above: Performed By: #### 8 5123, 24564 #### [facility] [address] [place] [address], [place] Glucose [Mass/Vol] 184 mg/dL High 70-[address] [facility] Comment on above: Performed By: #### 8 5123, 16502 #### [facility] [address] [place] [address], [facility] Hematocrit (Bld) [Volume fraction] 46 % Normal 38-51 [facility] Comment on above: Performed By: #### 8 5123, 02668 #### [facility] [address] [place] [address], [facility] Hemoglobin (Bld) [Mass/Vol] 15.6 g/dL Normal 12.0-17.0 [facility] Comment on above: Performed By: #### 8 5123, 48848 #### [facility] [address] [place] [address], [facility] IONIZED CALCIUM 1.06 mmol/L Low 1.12-1.[address] [facility] Comment on above: Performed By: #### 8 5123, 74011 #### [facility] [address] [place] [address], [facility] Oxygen (Bld) [Partial pressure] 374.0 mm[Hg] High 80.0-105.0 [facility] Comment on above: Performed By: #### 8 5123, 17359 #### [facility] [address] [place] [address], [facility] PCO2 43.3 mmHg Normal 35.0-45.0 [facility] Comment on above: Performed By: #### 8 5123, 41230 #### [facility] [address] [place] [address], [facility] pH (Bld) 7.34 [pH] Low 7.35-7.45 [facility] Comment on above: Performed By: #### 8 5123, 93560 #### [facility] [address] [place] [address], [place] Potassium [Moles/Vol] 4.8 mmol/L Normal 3.5-4.9 [facility] Comment on above: Performed By: #### 8 5123, 35274 #### [facility] [address] [place] [address], [place] Sodium [Moles/Vol] 139 mmol/L Normal 138-[address] [facility] Comment on above: Performed By: #### 8 5123, 67455 #### [facility] [address] [place] [address], [facility] BASE EXCESS -2.0 mmol/L Normal -2.0-3.0 [facility] Comment on above: Performed By: #### 8 5123, 06092 #### [facility] [address] [place] [address], [place] Glucose [Mass/Vol] 176 mg/dL High 70-[address] [facility] Comment on above: Performed By: #### 8 5123, 65418 #### [facility] [address] [place] [address], [place] Hematocrit (Bld) [Volume fraction] 44 % Normal 38-51 [facility] Comment on above: Performed By: #### 8 5123, 62717 #### [facility] [address] [place] [address], [facility] Hemoglobin (Bld) [Mass/Vol] 15.0 g/dL Normal 12.0-17.0 [facility] Comment on above: Performed By: #### 8 5123, 50113 #### [facility] [address] [place] [address], [place] IONIZED CALCIUM 1.07 mmol/L Low 1.12-1.32 [facility] Comment on above: Performed By: #### 8 5123, 20798 #### [facility] [address] [place] [address], [facility] Oxygen (Bld) [Partial pressure] 284.0 mm[Hg] High 80.0-105.0 [facility] Comment on above: Performed By: #### 8 5123, 31568 #### [facility] [address] [place] [address], [facility] PCO2 47.5 mmHg High 35.0-45.0 [facility] Comment on above: Performed By: #### 8 5123, 05782 #### [facility] [address] [place] [address], [facility] pH (Bld) 7.32 [pH] Low 7.35-7.45 [facility] Comment on above: Performed By: #### 8 5123, 80618 #### [facility] [address] [place] [address], [place] Potassium [Moles/Vol] 4.8 mmol/L Normal 3.5-4.9 [facility] Comment on above: Performed By: #### 8 5123, 65421 #### [facility] [address] [place] [address], [place] Sodium [Moles/Vol] 139 mmol/L Normal 138-146 [facility] Comment on above: Performed By: #### 8 5123, 25336 #### [facility] [address] [place] [address], [facility] BASE EXCESS -2.0 mmol/L Normal -2.0-3.0 [facility] Comment on above: Performed By: #### 0 0121, 59097, 58514, 32556, 00324 #### [facility] [address] [place] [address], [place] Glucose [Mass/Vol] 166 mg/dL High 70-105 [facility] Comment on above: Performed By: #### 0 0121, 36760, 22766, 50408, 82977 #### [facility] [address] [place] [address], [facility] Hematocrit (Bld) [Volume fraction] 45 % Normal 38-51 [facility] Comment on above: Performed By: #### 0 0121, 37694, 62764, 41000, 55851 #### [facility] [address] [place] [address], [facility] Hemoglobin (Bld) [Mass/Vol] 15.3 g/dL Normal 12.0-17.0 [facility] Comment on above: Performed By: #### 0 0121, 86030, 15565, 28740, 59788 #### [facility] [address] [place] [address], [facility] IONIZED CALCIUM 1.09 mmol/L Low 1.12-1.32 [facility] Comment on above: Performed By: #### 0 0121, 02000, 58273, 17921, 73774 #### [facility] [address] [place] [address], [place] Oxygen (Bld) [Partial pressure] 313.0 mm[Hg] High 80.0-105.0 [facility] Comment on above: Performed By: #### 0 0121, 03515, 29897, 74552, 17918 #### [facility] [address] [place] [address], [place] PCO2 47.7 mmHg High 35.0-45.0 [facility] Comment on above: Performed By: #### 0 0121, 63941, 83481, 00996, 20067 #### [facility] [address] [place] [address], [place] pH (Bld) 7.32 [pH] Low 7.35-7.45 [facility] Comment on above: Performed By: #### 0 0121, 54304, 70881, 01675, 46484 #### [facility] [address] [place] [address], [place] Potassium [Moles/Vol] 4.4 mmol/L Normal 3.5-4.9 [facility] Comment on above: Performed By: #### 0 0121, 26384, 20603, 14335, 22625 #### [facility] [address] [place] [address], [place] Sodium [Moles/Vol] 140 mmol/L Normal 138-[address] [facility] Comment on above: Performed By: #### 0 0121, 59211, 34715, 65664, 42524 #### [facility] [address] [place] [address], [place] BASE EXCESS -1.0 mmol/L Normal -2.0-3.0 [facility] Comment on above: Performed By: #### 0 0121, 31881, 88738, 23243, 75120 #### [facility] [address] [place] [address], [place] Glucose [Mass/Vol] 146 mg/dL High 70-[address] [facility] Comment on above: Performed By: #### 0 0121, 76428, 81757, 64656, 16913 #### [facility] [address] [place] [address], [place] Hematocrit (Bld) [Volume fraction] 45 % Normal 38-51 [facility] Comment on above: Performed By: #### 0 0121, 06173, 51038, 29903, 43638 #### [facility] [address] [place] [address], [place] Hemoglobin (Bld) [Mass/Vol] 15.3 g/dL Normal 12.0-17.0 [facility] Comment on above: Performed By: #### 0 0121, 06649, 06453, 68180, 44713 #### [facility] [address] [place] [address], [facility] IONIZED CALCIUM 1.06 mmol/L Low 1.12-1.32 [facility] Comment on above: Performed By: #### 0 0121, 58830, 45137, 61614, 47100 #### [facility] [address] [place] [address], [place] Oxygen (Bld) [Partial pressure] 319.0 mm[Hg] High 80.0-105.0 [facility] Comment on above: Performed By: #### 0 0121, 09008, 91639, 46540, 75949 #### [facility] [address] [place] [address], [place] PCO2 50.9 mmHg High 35.0-45.0 [facility] Comment on above: Performed By: #### 0 0121, 33212, 53446, 42329, 00610 #### [facility] [address] [place] [address], [place] pH (Bld) 7.32 [pH] Low 7.35-7.45 [facility] Comment on above: Performed By: #### 0 0121, 98027, 15424, 93078, 12614 #### [facility] [address] [place] [address], [place] Potassium [Moles/Vol] 4.4 mmol/L Normal 3.5-4.9 [facility] Comment on above: Performed By: #### 0 0121, 64447, 94819, 42251, 03339 #### [facility] [address] [place] [address], [facility] Sodium [Moles/Vol] 138 mmol/L Normal 138-[address] [facility] Comment on above: Performed By: #### 0 0121, 04250, 69301, 48978, 97165 #### [facility] [address] [place] [address], [facility] BASE EXCESS 0.0 mmol/L Normal -2.0-3.0 [facility] Comment on above: Performed By: #### 0 0121, 87802, 51646, 61472, 68685 #### [facility] [address] [place] [address], [facility] Glucose [Mass/Vol] 116 mg/dL High 70-[address] [facility] Comment on above: Performed By: #### 0 0121, 56177, 05460, 46725, 55813 #### [facility] [address] [place] [address], [facility] Hematocrit (Bld) [Volume fraction] 43 % Normal 38-51 [facility] Comment on above: Performed By: #### 0 0121, 86655, 85753, 85304, 14934 #### [facility] [address] [place] [address], [facility] Hemoglobin (Bld) [Mass/Vol] 14.6 g/dL Normal 12.0-17.0 [facility] Comment on above: Performed By: #### 0 0121, 31656, 05503, 87520, 11914 #### [facility] [address] [place] [address], [place] IONIZED CALCIUM 1.05 mmol/L Low 1.12-1.32 [facility] Comment on above: Performed By: #### 0 0121, 18256, 76934, 31797, 36683 #### [facility] [address] [place] [address], [place] Oxygen (Bld) [Partial pressure] 409.0 mm[Hg] High 80.0-105.0 [facility] Comment on above: Performed By: #### 0 0121, 61318, 54756, 02753, 02272 #### [facility] [address] [place] [address], [place] PCO2 44.9 mmHg Normal 35.0-45.0 [facility] Comment on above: Performed By: #### 0 0121, 65665, 37725, 58575, 79078 #### [facility] [address] [place] [address], [place] pH (Bld) 7.36 [pH] Normal 7.35-7.45 [facility] Comment on above: Performed By: #### 0 0121, 54753, 50431, 17221, 31067 #### [facility] [address] [place] [address], [place] Potassium [Moles/Vol] 4.5 mmol/L Normal 3.5-4.9 [facility] Comment on above: Performed By: #### 0 0121, 65926, 78747, 60667, 78488 #### [facility] [address] [place] [address], [place] Sodium [Moles/Vol] 138 mmol/L Normal 138-146 [facility] Comment on above: Performed By: #### 0 0121, 58052, 36271, 42301, 02386 #### [facility] [address] [place] [address], [place] BASE EXCESS 0.0 mmol/L Normal -2.0-3.0 [facility] Comment on above: Performed By: #### 0 0121, 20916, 11519, 09735, 98294 #### [facility] [address] [place] [address], [place] Glucose [Mass/Vol] 101 mg/dL Normal 70-105 [facility] Comment on above: Performed By: #### 0 0121, 36523, 84118, 01492, 58343 #### [facility] [address] [place] [address], [facility] Hematocrit (Bld) [Volume fraction] 44 % Normal 38-51 [facility] Comment on above: Performed By: #### 0 0121, 50411, 48446, 93602, 99899 #### [facility] [address] [place] [address], [facility] Hemoglobin (Bld) [Mass/Vol] 15.0 g/dL Normal 12.0-17.0 [facility] Comment on above: Performed By: #### 0 0121, 61935, 07131, 24345, 36665 #### [facility] [address] [place] [address], [place] IONIZED CALCIUM 1.02 mmol/L Low 1.12-1.32 [facility] Comment on above: Performed By: #### 0 0121, 89919, 92623, 56550, 69750 #### [facility] [address] [place] [address], [facility] Oxygen (Bld) [Partial pressure] 516.0 mm[Hg] High 80.0-105.0 [facility] Comment on above: Performed By: #### 0 0121, 81957, 72209, 08487, 77116 #### [facility] [address] [place] [address], [place] PCO2 50.7 mmHg High 35.0-45.0 [facility] Comment on above: Performed By: #### 0 0121, 36298, 74333, 72015, 62702 #### [facility] [address] [place] [address], [place] pH (Bld) 7.33 [pH] Low 7.35-7.45 [facility] Comment on above: Performed By: #### 0 0121, 77769, 57344, 92655, 80000 #### [facility] [address] [place] [address], [place] Potassium [Moles/Vol] 4.1 mmol/L Normal 3.5-4.9 [facility] Comment on above: Performed By: #### 0 0121, 81882, 30839, 29300, 68620 #### [facility] [address] [place] [address], [place] Sodium [Moles/Vol] 137 mmol/L Low 138-146 [facility] Comment on above: Performed By: #### 0 0121, 55570, 93687, 54583, 56630 #### [facility] [address] [place] [address], [place] Hematocrit (Bld) [Volume fraction] 43 % Normal 38-51 [facility] Comment on above: Performed By: #### 0 0121, 36641, 45630, 74144, 66110 #### [facility] [address] [place] [address], [place] Hemoglobin (Bld) [Mass/Vol] 14.6 g/dL Normal 12.0-17.0 [facility] Comment on above: Performed By: #### 0 0121, 19882, 78331, 84142, 93395 #### [facility] [address] [place] [address], [place] Oxygen (Bld) [Partial pressure] 51.0 mm[Hg] Normal [facility] Comment on above: Performed By: #### 0 0121, 84215, 19890, 56650, 13859 #### [facility] [address] [place] [address], [place] BASE EXCESS -4.0 mmol/L Low -2.0-3.0 [facility] Comment on above: Performed By: #### 0 0121, 80444, 02429, 63243, 46077 #### [facility] [facility] [address] [place] [address], [place] Glucose [Mass/Vol] 104 mg/dL Normal 70-105 [facility] Comment on above: Performed By: #### 0 0121, 87961, 65285, 10363, 71368 #### [facility] [address] [place] [address], [facility] Hematocrit (Bld) [Volume fraction] 55 % High 38-51 [facility] Comment on above: Performed By: #### 0 0121, 16312, 32055, 66941, 28304 #### [facility] [address] [place] [address], [facility] Hemoglobin (Bld) [Mass/Vol] 18.7 g/dL High 12.0-17.0 [facility] Comment on above: Performed By: #### 0 0121, 80971, 78939, 00923, 72823 #### [facility] [address] [place] [address], [facility] IONIZED CALCIUM 1.24 mmol/L Normal 1.12-1.32 [facility] Comment on above: Performed By: #### 0 0121, 94699, 80625, 00712, 10743 #### [facility] [address] [place] [address], [place] Oxygen (Bld) [Partial pressure] 159.0 mm[Hg] High 80.0-105.0 [facility] Comment on above: Performed By: #### 0 0121, 91970, 62178, 02484, 71007 #### [facility] [address] [place] [address], [place] PCO2 48.7 mmHg High 35.0-45.0 [facility] Comment on above: Performed By: #### 0 0121, 20247, 39809, 42677, 04204 #### [facility] [address] [place] [address], [place] pH (Bld) 7.30 [pH] Low 7.35-7.45 [facility] Comment on above: Performed By: #### 0 0121, 01725, 51778, 93514, 43965 #### [facility] [address] [place] [address], [place] Potassium [Moles/Vol] 4.1 mmol/L Normal 3.5-4.9 [facility] Comment on above: Performed By: #### 0 0121, 65359, 11316, 04079, 63315 #### [facility] [address] [place] [address], [place] Sodium [Moles/Vol] 139 mmol/L Normal 138-[address] [facility] Comment on above: Performed By: #### 0 0121, 67577, 20190, 49805, 83970 #### [facility] [address] [place] [address], [place] PHOSPHORUS BLOODon 9 Phosphate [Mass/Vol] 4.3 mg/dL Normal 2.5-5.0 [facility] Comment on above: Order Comment: R/O P ulmonary Edema Performed By: #### 0 0121, 87878, 67341 ####[facility] [place] [address], [place] POC GLUCOSE LABon 03-19-2019 Glucose [Mass/Vol] 115 mg/dL High 70-[address] [facility] Comment on above: Performed By: #### 5 7307 #### [facility] [address] [place] [address], [place] Glucose [Mass/Vol] 145 mg/dL High 70-[address] [facility] Comment on above: Performed By: #### 5 7307 #### [facility] [address] [place] [address], [facility] Glucose [Mass/Vol] 121 mg/dL High 70-100 [facility] Comment on above: Performed By: #### 8 5499 ####[facility] [place] [address], [facility] Glucose [Mass/Vol] 122 mg/dL High 70-[address] [facility] Comment on above: Performed By: #### 8 5499 ####[place] [address] [place] [address], [facility] PORTABLE CHEST 1 VIEWon 03-01 PORTABLE CHEST 1 VIEW [facility] Department of Radiology [address] [place] [phone] ======== Patient Name: TRACIE CRAIN : 1965 Sex: M Age: Race: NA Pt. Location: [id number] Patient Status: I Ordered Date: 03/19/2019 5:50:00 [...] the upper thoracic trachea in satisfactory position. Oto-Sher catheter, chest tubes and enteric tube appear [...] findings. Electronically signed by:Yenni Osuna. Transcribed by: [email or web address], User Resident: EMILIA SHERMAN Electronically Signed by: YENNI OSUNA @ 03/20/2019 05:05 PM I personally read this/these film(s) with this resident Normal The [facility] Comment on above: Order Comment: << On admission If not done in ED>> No: Do not add to previous draw PORTABLE CHEST 1 VIEW [facility] Department of Radiology [address] [place] [phone] ======== Patient Name: TRACIE CRAIN : 1965 Sex: M Age: Race: NA Pt. Location: [id number] Patient Status: I Ordered Date: 03/19/2019 4:45:00 [...] right-sided chest tubes appear in satisfactory position. Oto-Sher catheter with tip projecting over the pulmonary [...] findings. Electronically signed by:Divya Collins. Transcribed by: [email or web address], User Resident: ANAI ALVARADO Electronically Signed by: DIVYA COLLINS @ 03/20/2019 11:00 AM I personally read this/these film(s) with this resident Normal [facility] Comment on above: Order Comment: << On admission If not done in ED>> No: Do not add to previous draw PORTABLE CHEST 1 VIEW [facility] Department of Radiology [address] [place] [phone] ======== Patient Name: TRACIE CRAIN : 1965 Sex: M Age: Race: NA Pt. Location: [id number] Patient Status: I Ordered Date: 03/19/2019 3:55:00 [...] tubes are in place. No appreciable pneumothorax. Oto-Sher catheter in place likely terminating in the [...] disease most likely representing multifocal atelectasis. * Oto-Sher catheter likely terminating in the proximal right main pulmonary artery. * Trace pleural fluid bilaterally. Approved by:Pierce Sherman on 03/19/2019 5:04 PM EDT. I, Yenni Osuna, have reviewed the images and report and concur with these findings. Electronically signed by:Yenni Osuna. Transcribed by: [email or web address], User Resident: EMILIA SHERMAN Electronically Signed by: YENNI OSUNA @ 03/20/2019 05:04 PM I personally read this/these film(s) with this resident Normal The [facility] Comment on above: Order Comment: << On admission If not done in ED>> No: Do not add to previous draw PROTHROMBIN TIMEon 9 INR Coag (PPP) [Relative time] 1.60 {INR} High 0.91-1.16 [facility] Comment on above: Order Comment: R/O P [...] CHEST 1995;108:231S-246S. Performed By: #### 5 6101 ####[facility] PT Coag (PPP) [Time] 19.1 s High 12.3-14.8 [facility] Comment on above: Order Comment: R/O P ulmonary Edema Result Comment: ALL RESULTS MUST BE INTERPRETED WITH RESPECT TO BLOOD DRAWING ARTIFACT OR DILUTION ERROR OF ANTICOAGULANT AT THE TIME OF SAMPLING. Performed By: #### 5 6101 ####[facility] [facility] [address], [facility] INR Coag (PPP) [Relative time] 1.68 {INR} High 0.91-1.16 [facility] Comment on above: Order Comment: If no [...] RANGE. CHEST 1995;108:231S-246S. Performed By: #### 8 4813, 89085 #### [facility] [address] [facility] [address], [facility] PT Coag (PPP) [Time] 19.9 s High 12.3-14.8 [facility] Comment on above: Order Comment: If no t done in ED No: Do not add to previous draw Result Comment: ALL RESULTS MUST BE INTERPRETED WITH RESPECT TO BLOOD DRAWING ARTIFACT OR DILUTION ERROR OF ANTICOAGULANT AT THE TIME OF SAMPLING. Performed By: #### 8 1883, 06700 #### [facility] [address] [facility] INR Coag (PPP) [Relative time] 1.02 {INR} Normal 0.91-1.16 [facility] Comment on above: Order Comment: If no [...] CHEST 1995;108:231S-246S. Performed By: #### 0 0121, 43738, 20868, 95665, 04742 #### [facility] [address] PT Coag (PPP) [Time] 13.4 s Normal 12.3-14.8 [facility] Comment on above: Order Comment: If no t done in ED No: Do not add to previous draw Result Comment: ALL RESULTS MUST BE INTERPRETED WITH RESPECT TO BLOOD DRAWING ARTIFACT OR DILUTION ERROR OF ANTICOAGULANT AT THE TIME OF SAMPLING. Performed By: #### 0 0121, 85257, 54631, 92804, 85348 #### [facility] [address] [place] [address], [facility] RBC'S 2 UNITSon 03-19-2019 CROSSMATCH INTERP 1 COMP Normal [facility] Comment on above: Performed By: #### 0 0121, 59449, 40319, 01905, 82930 #### [facility] [address] [place] [address], [facility] CROSSMATCH INTERP 2 COMP Normal The [facility] Comment on above: Performed By: #### 0 0121, 53198, 68722, 55735, 30251 #### [facility] [address] [place] [address], [facility] PRODUCT CODE 1 E0332 Normal [facility] Comment on above: Performed By: #### 0 0121, 47572, 37238, 57492, 75951 #### [facility] [address] [place] [address], [facility] PRODUCT CODE 2 E0336 Normal [facility] Comment on above: Performed By: #### 0 0121, 13463, 44441, 19858, 08137 #### [facility] [address] [place], [place] [id number] [place] [address] PRODUCT STATUS 1 RE Normal [facility] [...] was XX. Performed By: #### 0 0121, 97492, 34997, 84688, 40292 #### [facility] [address] PRODUCT STATUS 2 RE Normal The [facility] [...] was XX. Performed By: #### 0 0121, 08363, 16614, 01101, 10859 #### [facility] [address] [place] [address], [facility] UNIT ABO 1 O Normal The [facility] Comment on above: Performed By: #### 0 0121, 15340, 49581, 92505, 57024 #### [facility] [address] [place] [address], [facility] UNIT ABO 2 O Normal The [facility] Comment on above: Performed By: #### 0 0121, 95422, 73449, 52901, 26153 #### [facility] [address] [place] [address], [facility] UNIT ID 1 [id number] Normal The [facility] Comment on above: Performed By: #### 0 0121, 52916, 11507, 05275, 03286 #### [facility] [address] [facility] [place] [address], [facility] UNIT ID 2 [id number] Normal The [facility] Comment on above: Performed By: #### 0 0121, 74165, 27207, 51369, 96843 #### [facility] [address] [place] [address], [facility] UNIT RH 1 Negative Normal The [facility] Comment on above: Performed By: #### 0 0121, 48192, 64234, 80298, 26302 #### [facility] [address] [place] [address], [facility] UNIT RH 2 Negative Normal The [facility] Comment on above: Performed By: #### 0 0121, 90120, 72733, 59105, 53680 #### [facility] [address] [place] [address], [facility] *MRSA/MSSA DNA NASALon 03-18 *MRSA/MSSA DNA NASAL Clinical Report: (D ) Specimen: NASAL SWAB Collected: 03/18/2019 17:05 Status: Final Last Updated: 03/19/2019 12:12 MSSA DNA (Final) Negative MRSA DNA (Final) Negative Normal The [facility] Comment on above: Performed By: #### 8 5123, 54743 #### [facility] [address] [facility] [address], [facility] APTTon 03-18-2019 aPTT Coag (Bld) [Time] 58.1 s High 25.0-35.0 [facility] Comment on above: Order Comment: << ON [...] OF HEPARIN. Performed By: #### 0 0121, 61174, 67185, 68945, 70701 #### [facility] [address] [facility]. [address] aPTT Coag (Bld) [Time] 67.7 s High 25.0-35.0 [facility] Comment on above: Order Comment: << ON [...] OF HEPARIN. Performed By: #### 0 0121, 09538, 51803, 36129, 19175 #### [facility] [address] aPTT Coag (Bld) [Time] 74.8 s Critically high 25.0-35.0 [facility] Comment on above: Order Comment: << ON [...] AT 0609. Performed By: #### 0 0121, 42052, 08077, 68953, 09306 #### [facility] [address] BASIC METABOLIC PANELon 06- Calcium [Mass/Vol] 9.2 mg/dL Normal 8.6-10.3 [facility] Comment on above: Order Comment: << ON ADMISSION If not done in ED>> No: Do not add to previous draw Performed By: #### 0 0121, 67748, 53663, 05821, 13964 #### [facility] [address] [place] [address], [facility] Chloride [Moles/Vol] 105 mmol/L Normal 98-107 [facility] Comment on above: Order Comment: << ON ADMISSION If not done in ED>> No: Do not add to previous draw Performed By: #### 0 0121, 58042, 17083, 49107, 39555 #### [facility] [address] [place] [address], [facility] CO2 [Moles/Vol] 27 mmol/L Normal 21-31 The [facility] Comment on above: Order Comment: << ON ADMISSION If not done in ED>> No: Do not add to previous draw Performed By: #### 0 0121, 85616, 57806, 81294, 09725 #### [facility] [address] [place] [address], [place] Creatinine [Mass/Vol] 1.11 mg/dL Normal 0.70-1.30 [facility] Comment on above: Order Comment: << ON ADMISSION If not done in ED>> No: Do not add to previous draw Performed By: #### 0 0121, 58784, 25794, 78490, 46817 #### [facility] [address] [place] [address], [place] GFR/1.73 sq M predicted among blacks MDRD (S/P/Bld) [Vol rate/Area] mL/min/{1.73_m2} Normal >60 [facility] Comment on above: Order Comment: << ON ADMISSION If not done in ED>> No: Do not add to previous draw Performed By: #### 0 0121, 00536, 65706, 94460, 88896 #### [facility] [address] [place] [address], [place] GFR/1.73 sq M predicted among non-blacks MDRD (S/P/Bld) [Vol rate/Area] mL/min/{1.73_m2} Normal >60 [facility] Comment on above: Order Comment: << ON ADMISSION If not done in ED>> No: Do not add to previous draw Performed By: #### 0 0121, 30314, 81031, 72491, 09071 #### [facility] [address] [place] [address], [place] Glucose [Mass/Vol] 101 mg/dL High 70-100 [facility] Comment on above: Order Comment: << ON ADMISSION If not done in ED>> No: Do not add to previous draw Performed By: #### 0 0121, 95540, 33586, 62992, 13810 #### [facility] [address] Potassium [Moles/Vol] 4.2 mmol/L Normal 3.5-5.1 [facility] Comment on above: Order Comment: << ON ADMISSION If not done in ED>> No: Do not add to previous draw Performed By: #### 0 0121, 38660, 22255, 27132, 34532 #### [facility] [address] [place] [address], [facility] Sodium [Moles/Vol] 136 mmol/L Normal 136-[address] [facility] Comment on above: Order Comment: << ON ADMISSION If not done in ED>> No: Do not add to previous draw Performed By: #### 0 0121, 94272, 39658, 32755, 83642 #### [facility] [address] Urea nitrogen [Mass/Vol] 15 mg/dL Normal 7-25 [facility] Comment on above: Order Comment: << ON ADMISSION If not done in ED>> No: Do not add to previous draw Performed By: #### 0 0121, 96546, 77465, 54944, 48690 #### [facility] [address] CBC COMPLETE BLOOD COUNTon 0 - Erythrocyte distribution width (RBC) [Ratio] 12.8 % Normal 11.5-15.0 [facility] Comment on above: Order Comment: << ON ADMISSION If not done in ED>> No: Do not add to previous draw Performed By: #### 0 0121, 52796, 49185, 56458, 87759 #### [facility] [address] [place] [address], [facility] Hematocrit (Bld) [Volume fraction] 55.1 % High 39.0-50.0 [facility] Comment on above: Order Comment: << ON ADMISSION If not done in ED>> No: Do not add to previous draw Performed By: #### 0 0121, 75393, 96636, 74243, 66829 #### [facility] [address] [facility] [place] [address], [facility] Hemoglobin (Bld) [Mass/Vol] 17.5 g/dL High 13.0-17.0 [facility] Comment on above: Order Comment: << ON ADMISSION If not done in ED>> No: Do not add to previous draw Performed By: #### 0 0121, 45625, 84086, 24746, 01746 #### [facility] [address] [facility] [place] [address], [facility] MCH (RBC) [Entitic mass] 28.6 pg Normal 27.0-33.0 [facility] Comment on above: Order Comment: << ON ADMISSION If not done in ED>> No: Do not add to previous draw Performed By: #### 0 0121, 52347, 95542, 06345, 72610 #### [facility] [address] [facility] MCHC (RBC) [Mass/Vol] 31.8 g/dL Low 32.0-35.0 [facility] Comment on above: Order Comment: << ON ADMISSION If not done in ED>> No: Do not add to previous draw Performed By: #### 0 0121, 74525, 66269, 02288, 97132 #### [facility] [address] [facility]. [address] MCV (RBC) [Entitic vol] 90.0 fL Normal 82.0-98.0 [facility] Comment on above: Order Comment: << ON ADMISSION If not done in ED>> No: Do not add to previous draw Performed By: #### 0 0121, 91792, 11785, 54431, 23246 #### [facility] [address] [facility] [place] [address], [facility] Nucleated RBC/100 WBC (Bld) [Ratio] 0 % Normal 0-0 [facility] Comment on above: Order Comment: << ON ADMISSION If not done in ED>> No: Do not add to previous draw Performed By: #### 0 0121, 67092, 43214, 15465, 73530 #### [facility] [address] [place] [address], [facility] PLAT CNT 286 10*3/uL Normal 150-400 [facility] Comment on above: Order Comment: << ON ADMISSION If not done in ED>> No: Do not add to previous draw Performed By: #### 0 0121, 13772, 17892, 91144, 11224 #### [facility] [address] [place] [address], [facility] RBC (Bld) [#/Vol] 6.12 10*6/uL High 4.20-5.70 [facility] Comment on above: Order Comment: << ON ADMISSION If not done in ED>> No: Do not add to previous draw Performed By: #### 0 0121, 91800, 23538, 67362, 95188 #### [facility] [address] [place] [address], [facility] WBC (Bld) [#/Vol] 9.33 10*3/uL Normal 4.00-10.[address] [facility] Comment on above: Order Comment: << ON ADMISSION If not done in ED>> No: Do not add to previous draw Performed By: #### 0 0121, 46322, 87984, 60606, 57366 #### [facility] [address] [place] [address], [facility] MAGNESIUM BLOODon 03-18-2019 Magnesium [Mass/Vol] 2.4 mg/dL Normal 1.9-2.7 [facility] Comment on above: Performed By: #### 0 0121, 34878, 11613, 79977, 50548 #### [facility] [address] [place] [address], [facility] TYPE AND SCREENon 03-18-2019 ABO INTERPRETATION O Normal [facility] Comment on above: Performed By: #### 0 0121, 76397, 02000, 74890, 07836 #### [facility] [address] [place] [address], [facility] RH INTERPRETATION Negative Normal [facility] Comment on above: Performed By: #### 0 0121, 03388, 85481, 80372, 85517 #### [facility] [address] [place] [address], [facility] UFH HEPARIN ASSAYon 03-18-20 19 UNFRACTIONATED HEPARIN 0.19 IU/mL Low 0.30-0.70 [facility] Comment on above: Order Comment: If no t done in ED No: Do not add to previous draw Result Comment: Estefania roxaban and Apixaban will interfere with the anti Xa assay used to monitor UFH and LMWH. Performed By: #### 0 0121, 31503, 83111, 08388, 98821 #### [facility] [address] [facility]. [address] UNFRACTIONATED HEPARIN 0.29 IU/mL Low 0.30-0.70 [facility] Comment on above: Order Comment: << ON ADMISSION If not done in ED>> No: Do not add to previous draw Result Comment: Estefania roxaban and Apixaban will interfere with the anti Xa assay used to monitor UFH and LMWH. Performed By: #### 0 0121, 16880, 58482, 68636, 77998 #### [facility] [address] [place] [address], [facility] UNFRACTIONATED HEPARIN 0.25 IU/mL Low 0.30-0.70 [facility] Comment on above: Result Comment: [place] roxaban and Apixaban will interfere with the anti Xa assay used to monitor UFH and LMWH. Performed By: #### 0 0121, 86776, 71413, 95843, 36396 #### [facility] [address] [place] [address], [facility] URINALYSISon 03-18-2019 Appearance (U) CLEAR Normal CLEAR [facility] Comment on above: Order Comment: If no t done in ED No: Do not add to previous draw Performed By: #### 0 0121, 86538, 66494, 79037, 94497 #### [facility] [address] [place] [address], [place] Bilirubin [Mass/Vol] Negative Normal NEGATIVE [facility] Comment on above: Order Comment: If no t done in ED No: Do not add to previous draw Performed By: #### 0 0121, 41150, 32674, 26736, 96414 #### [facility] [address] [place] [address], [place] BLOOD Negative Normal NEGATIVE [facility] Comment on above: Order Comment: If no t done in ED No: Do not add to previous draw Performed By: #### 0 0121, 86432, 48938, 38611, 73913 #### [facility] [address] [place] [address], [place] Color (U) YELLOW Normal YELLOW [facility] Comment on above: Order Comment: If no t done in ED No: Do not add to previous draw Performed By: #### 0 0121, 90846, 97491, 71298, 79685 #### [facility] [address] [place] [address], [place] Glucose [Mass/Vol] Negative Normal NEGATIVE The [facility] Comment on above: Order Comment: If no t done in ED No: Do not add to previous draw Performed By: #### 0 0121, 24317, 02967, 04409, 48115 #### [facility] [address] [place] [address], [place] KETONE Negative Normal NEGATIVE [facility] Comment on above: Order Comment: If no t done in ED No: Do not add to previous draw Performed By: #### 0 0121, 25647, 70959, 11967, 94300 #### [facility] [address] [place] [address], [place] LEUK RADHA Negative Normal NEGATIVE [facility] Comment on above: Order Comment: If no t done in ED No: Do not add to previous draw Performed By: #### 0 0121, 51469, 82715, 04419, 26229 #### [facility] [address] [place] [address], [facility] MICRO NOT DONE negative chemical reactions unless requested in original order Normal [facility] Comment on above: Order Comment: If no t done in ED No: Do not add to previous draw Performed By: #### 0 0121, 47858, 60530, 68625, 61459 #### [facility] [address] [place] [address], [facility] [facility] Nit[facility] Ql (U) Negative Normal NEGATIVE [facility] Comment on above: Order Comment: If no t done in ED No: Do not add to previous draw Performed By: #### 0 0121, 88300, 72902, 13954, 33372 #### [facility] [address] [place] [address], [facility] pH (Bld) 6.0 Normal 5.0-8.0 [facility] Comment on above: Order Comment: If no t done in ED No: Do not add to previous draw Performed By: #### 0 0121, 69640, 58632, 98600, 37145 #### [facility] [address] [place] [address], [facility] Protein (U) [Mass/Vol] Negative Normal NEGATIVE [facility] Comment on above: Order Comment: If no t done in ED No: Do not add to previous draw Performed By: #### 0 0121, 30395, 19241, 41513, 49104 #### [facility] [address] [place] [address], [place] SPEC GRAV 1.017 Normal 1.015-1.020 [facility] Comment on above: Order Comment: If no t done in ED No: Do not add to previous draw Performed By: #### 0 0121, 05208, 22670, 57159, 62873 #### [facility] [address] [place] [address], [facility] APTTon 03-17-2019 aPTT Coag (Bld) [Time] 67.3 s High 25.0-35.0 [facility] Comment on above: [...] THIS PURPOSE. Performed By: #### 0 0121, 39447, 79319, 70015, 59174 #### [facility] [address] BASIC METABOLIC PANELon 02-28 Calcium [Mass/Vol] 9.1 mg/dL Normal 8.6-10.3 [facility] Comment on above: Order Comment: No: D o not add to previous draw Performed By: #### 0 0121, 53334, 42211, 65649, 83364 #### [facility] [address] [place] [address], [facility] Chloride [Moles/Vol] 101 mmol/L Normal 98-107 [facility] Comment on above: Order Comment: No: D o not add to previous draw Performed By: #### 0 0121, 31279, 35335, 53917, 72787 #### [facility] [address] [place] [address], [facility] CO2 [Moles/Vol] 24 mmol/L Normal 21-31 The [facility] Comment on above: Order Comment: No: D o not add to previous draw Performed By: #### 0 0121, 21863, 77826, 41383, 17031 #### [facility] [address] [place] [address], [place] Creatinine [Mass/Vol] 1.02 mg/dL Normal 0.70-1.30 [facility] Comment on above: Order Comment: No: D o not add to previous draw Performed By: #### 0 0121, 25541, 75268, 26202, 61236 #### [facility] [address] [place] [address], [place] GFR/1.73 sq M predicted among blacks MDRD (S/P/Bld) [Vol rate/Area] mL/min/{1.73_m2} Normal >60 [facility] Comment on above: Order Comment: No: D o not add to previous draw Performed By: #### 0 0121, 29131, 26590, 43492, 43341 #### [facility] [address] [place] [address], [facility] GFR/1.73 sq M predicted among non-blacks MDRD (S/P/Bld) [Vol rate/Area] mL/min/{1.73_m2} Normal >60 [facility] Comment on above: Order Comment: No: D o not add to previous draw Performed By: #### 0 0121, 74663, 32079, 24075, 09686 #### [facility] [address] [place] [address], [place] Glucose [Mass/Vol] 102 mg/dL High 70-[address] [facility] Comment on above: Order Comment: No: D o not add to previous draw Performed By: #### 0 0121, 45359, 19204, 84841, 97234 #### [facility] [address] [place] [address], [place] Potassium [Moles/Vol] 3.7 mmol/L Normal 3.5-5.1 [facility] Comment on above: Order Comment: No: D o not add to previous draw Performed By: #### 0 0121, 44505, 02161, 85288, 06383 #### [facility] [address] [place] [address], [facility] Sodium [Moles/Vol] 135 mmol/L Low 136-[address] [facility] Comment on above: Order Comment: No: D o not add to previous draw Performed By: #### 0 0121, 89478, 60611, 72436, 03219 #### [facility] [address] [place] [id number], [facility] Urea nitrogen [Mass/Vol] 18 mg/dL Normal 7-25 [facility] Comment on above: Order Comment: No: D o not add to previous draw Performed By: #### 0 0121, 50322, 45582, 05441, 83128 #### [facility] [address] CBC COMPLETE BLOOD COUNTon 0 - Erythrocyte distribution width (RBC) [Ratio] 12.9 % Normal 11.5-15.0 [facility] Comment on above: Order Comment: No: D o not add to previous draw Performed By: #### 0 0121, 43884, 91902, 45748, 17057 #### [facility] [address] [place] [address], [facility] Hematocrit (Bld) [Volume fraction] 50.6 % High 39.0-50.0 [facility] Comment on above: Order Comment: No: D o not add to previous draw Performed By: #### 0 0121, 38475, 93507, 60900, 43419 #### [facility] [address] [place] [id number], [facility] Hemoglobin (Bld) [Mass/Vol] 16.1 g/dL Normal 13.0-17.0 [facility] Comment on above: Order Comment: No: D o not add to previous draw Performed By: #### 0 0121, 71977, 64347, 66541, 47365 #### [facility] [address] [place] [address], [facility] MCH (RBC) [Entitic mass] 28.6 pg Normal 27.0-33.0 [facility] Comment on above: Order Comment: No: D o not add to previous draw Performed By: #### 0 0121, 47126, 89530, 15682, 30302 #### [facility] [address] [place] [address], [facility] MCHC (RBC) [Mass/Vol] 31.8 g/dL Low 32.0-35.0 [facility] Comment on above: Order Comment: No: D o not add to previous draw Performed By: #### 0 0121, 12850, 40523, 65987, 05475 #### [facility] [address] [place] [address], [facility] MCV (RBC) [Entitic vol] 90.0 fL Normal 82.0-98.0 [facility] Comment on above: Order Comment: No: D o not add to previous draw Performed By: #### 0 0121, 23040, 51760, 67139, 65472 #### [facility] [address] [facility] [address], [facility] Nucleated RBC/100 WBC (Bld) [Ratio] 0 % Normal 0-0 [facility] Comment on above: Order Comment: No: D o not add to previous draw Performed By: #### 0 0121, 66982, 94717, 27833, 54747 #### [facility] [address] [facility] [place] [address], [facility] PLAT CNT 274 10*3/uL Normal 150-400 [facility] Comment on above: Order Comment: No: D o not add to previous draw Performed By: #### 0 0121, 55000, 70698, 85287, 37799 #### [facility] [address] [place] [address], [facility] RBC (Bld) [#/Vol] 5.62 10*6/uL Normal 4.20-5.[address] [facility] Comment on above: Order Comment: No: D o not add to previous draw Performed By: #### 0 0121, 86998, 73404, 05928, 05633 #### [facility] [address] [place] [address], [facility] WBC (Bld) [#/Vol] 9.65 10*3/uL Normal 4.00-10.[address] [facility] Comment on above: Order Comment: No: D o not add to previous draw Performed By: #### 0 0121, 61057, 90474, 24180, 64466 #### [facility] [address] Cardiovascular Lab Reporton 03-17-2019 Cardiovascular Lab Report [facility]: [id number] Department of Physician: Madan Parsons M.D. Division of Service Date: 03/16/2019 Cardiology Birthdate: 1965 Adult Cardiovascular Room #: 3AB [id number] [facility] [address] [place] [address] Cardiovascular Laboratory Report CLINICAL PRESENTATION: The patient is a 53-year-old male, who was transferred from the [facility], due to his symptoms of shortness of [...] guidance and a micropuncture access technique, a 6-Azeri sheath was placed in the right internal jugular vein. A Clark catheter was then advanced under fluoroscopic hemodynamic monitor to the right atrium. Pressure was obtained in the right atrium, right ventricle, pulmonary artery, pulmonary capillary wedge position. Oxygen saturations drawn from the pulmonary artery and the Nanci cardiac output and cardiac index were calculated. The Clark catheter was then removed. Next, a 6-Azeri Terumo Glidesheath slender was placed in the right radial artery. The radial anti-vasospasm cocktail of nitroglycerin 100 mcg was administered through the sheath. All catheter exchanges were made over the MagbeSUCCESS Torque guidewire. A 5-Azeri Muskego catheter was used to engage the left [...] Day M.D. Date Trans: 03/17/2019 05:03 A/bessie [id number] cc: Titus Villegas M.D. [address] [facility] [address] Normal The [facility] MAGNESIUM BLOODon 03-17-2019 Magnesium [Mass/Vol] 2.2 mg/dL Normal 1.9-2.7 [facility] Comment on above: Order Comment: No: D o not add to previous draw Performed By: #### 0 0121, 77421, 76870, 63515, 60740 #### [facility] [address] [facility]. [address] UFH HEPARIN ASSAYon 03-17-20 19 UNFRACTIONATED HEPARIN 0.30 IU/mL Normal 0.30-0.70 The [facility] Comment on above: Result Comment: [place] roxaban and Apixaban will interfere with the anti Xa assay used to monitor UFH and LMWH. Performed By: #### 0 0121, 55855, 60075, 51485, 51064 #### [facility] [address] [place] [address], [facility] APTTon 03-16-2019 aPTT Coag (Bld) [Time] 63.7 s High 25.0-35.0 [facility] Comment on above: Order Comment: No: D [...] OF HEPARIN. Performed By: #### 0 0121, 55088, 12323, 91356, 15766 #### [facility] [address] aPTT Coag (Bld) [Time] 87.5 s Critically high 25.0-35.0 [facility] Comment on above: Order Comment: No: D [...] READ BACK BY DAKOTAH MONTANO RN @ 0581 on 03-16-19 CLINICAL SIGNIFICANCE OF THE PTT RESULT IS QUESTIONABLE IN THE PRESENCE OF HEPARIN. Performed By: #### 0 0121, 91815, 95046, 83874, 73706 #### [address] Cardiovascular Lab Reporton 03-16-2019 Cardiovascular Lab Report [facility] Patient Name: [facility] MR #: [id number] Department of Physician: Ilan Danielson MD Division of Service Date: 03/16/2019 Cardiology Birthdate: 1965 Adult Cardiovascular Room #: 3AB [id number] [place] [address] Cardiovascular Laboratory Report PROCEDURE: Transesophageal echocardiogram and cardioversion. INDICATION: Atrial fibrillation. PROCEDURE IN DETAIL: An informed consent was obtained from the patient after explaining indications, risks, benefits, and alternatives. The patient understood and agreed and signed the consent form. The patient was brought to the laborer wreck[facility] salv[facility] and GERMAN/transesophageal echocardiogram was performed under conscious [...] Danielson MD Date Trans: 03/16/2019 07:28 P/mmo [id number] cc: Titus Villegas M.D. [address] [facility] [address] Normal [facility] ERYTHROPOIETIN [id number] 03-16 ERYTHROPOIETIN 7 mU/mL Normal 4-27 [facility] Comment on above: Order Comment: [...] may benefit from therapy with recombinant EPO ([facility] [id number]). Performed by [employer], [address] [place] [id number] [email or web address], Jann Somers MD - Lab. Director UFH HEPARIN ASSAYon 03-16-20 19 UNFRACTIONATED HEPARIN 0.43 IU/mL Normal 0.30-0.70 [facility] Comment on above: Result Comment: [place] roxaban and Apixaban will interfere with the anti Xa assay used to monitor UFH and LMWH. Performed By: #### 0 0121, 14186, 79292, 56759, 89466 #### [facility] [address] UNFRACTIONATED HEPARIN 0.53 IU/mL Normal 0.30-0.70 [facility] Comment on above: Result Comment: [place] roxaban and Apixaban will interfere with the anti Xa assay used to monitor UFH and LMWH. Performed By: #### 0 0121, 89438, 77077, 76073, 47009 #### [facility] [address] [place] [address], [facility] APTTon 03-15-2019 aPTT Coag (Bld) [Time] 74.0 s Critically high 25.0-35.0 [facility] Comment on above: Order Comment: No: D [...] AT 2127 Performed By: #### 0 0121, 62683, 55794, 33532, 93137 #### [facility] [address] [facility] [address], [facility] aPTT Coag (Bld) [Time] 84.1 s Critically high 25.0-35.0 [facility] Comment on above: Order Comment: << On [...] OF HEPARIN. Performed By: #### 0 0121, 38737, 30164, 23824, 29507 #### [facility] 3000 [facility] [place] [address], [facility] aPTT Coag (Bld) [Time] 59.2 s High 25.0-35.0 [facility] Comment on above: Order Comment: << On [...] THIS PURPOSE. Performed By: #### 0 0121, 59972, 58238, 38872, 06964 #### [facility] [address] [place] [address], [facility] BASIC METABOLIC PANELon - Calcium [Mass/Vol] 9.9 mg/dL Normal 8.6-10.3 [facility] Comment on above: Order Comment: << On admission If not done in ED>> No: Do not add to previous draw Performed By: #### 0 0121, 23712, 04622, 24640, 58547 #### [facility] [address] [place] [address], [facility] Chloride [Moles/Vol] 101 mmol/L Normal 98-107 [facility] Comment on above: Order Comment: << On admission If not done in ED>> No: Do not add to previous draw Performed By: #### 0 0121, 92767, 88498, 01839, 91073 #### [facility] [address] [place] [address], [facility] CO2 [Moles/Vol] 25 mmol/L Normal 21-31 [facility] Comment on above: Order Comment: << On admission If not done in ED>> No: Do not add to previous draw Performed By: #### 0 0121, 01673, 88548, 83390, 94146 #### [facility] [address] [place] [address], [facility] Creatinine [Mass/Vol] 1.02 mg/dL Normal 0.70-1.30 [facility] Comment on above: Order Comment: << On admission If not done in ED>> No: Do not add to previous draw Performed By: #### 0 0121, 77252, 91513, 85388, 90774 #### [facility] [address] [place] [address], [facility] GFR/1.73 sq M predicted among blacks MDRD (S/P/Bld) [Vol rate/Area] mL/min/{1.73_m2} Normal >60 [facility] Comment on above: Order Comment: << On admission If not done in ED>> No: Do not add to previous draw Performed By: #### 0 0121, 81286, 18616, 66243, 36488 #### [facility] [address] [place] [address], [place] GFR/1.73 sq M predicted among non-blacks MDRD (S/P/Bld) [Vol rate/Area] mL/min/{1.73_m2} Normal >60 [facility] Comment on above: Order Comment: << On admission If not done in ED>> No: Do not add to previous draw Performed By: #### 0 0121, 76040, 42878, 78609, 30632 #### [facility] [address] [place] [address], [place] Glucose [Mass/Vol] 100 mg/dL Normal 70-100 [facility]: Order Comment: << On admission If not done in ED>> No: Do not add to previous draw Performed By: #### 0 0121, 06600, 60295, 94706, 84322 #### [facility] [address] [place] [address], [place] Potassium [Moles/Vol] 4.0 mmol/L Normal 3.5-5.1 [facility] Comment on above: Order Comment: << On admission If not done in ED>> No: Do not add to previous draw Performed By: #### 0 0121, 63117, 45954, 80723, 91963 #### [facility] [address] [place] [address], [place] Sodium [Moles/Vol] 135 mmol/L Low 136-[address] [facility] Comment on above: Order Comment: << On admission If not done in ED>> No: Do not add to previous draw Performed By: #### 0 0121, 39748, 19874, 46724, 80626 #### [facility] [address] Urea nitrogen [Mass/Vol] 24 mg/dL Normal 7-25 [facility] Comment on above: Order Comment: << On admission If not done in ED>> No: Do not add to previous draw Performed By: #### 0 0121, 32265, 99246, 81596, 67770 #### [facility] [address] CBC COMPLETE BLOOD COUNTon 0 - Erythrocyte distribution width (RBC) [Ratio] 13.1 % Normal 11.5-15.0 [facility] Comment on above: Order Comment: << On admission If not done in ED>> No: Do not add to previous draw Performed By: #### 0 0121, 25791, 94663, 85710, 63507 #### [facility] [address] [facility] Hematocrit (Bld) [Volume fraction] 53.6 % High 39.0-50.0 [facility] Comment on above: Order Comment: << On admission If not done in ED>> No: Do not add to previous draw Performed By: #### 0 0121, 87457, 40608, 37313, 44591 #### [facility] [address] Hemoglobin (Bld) [Mass/Vol] 17.4 g/dL High 13.0-17.0 [facility] Comment on above: Order Comment: << On admission If not done in ED>> No: Do not add to previous draw Performed By: #### 0 0121, 04839, 49060, 25257, 00679 #### [facility] [address] [facility] [place] [address], [facility] MCH (RBC) [Entitic mass] 28.6 pg Normal 27.0-33.0 [facility] Comment on above: Order Comment: << On admission If not done in ED>> No: Do not add to previous draw Performed By: #### 0 0121, 99742, 09865, 86216, 81120 #### [facility] [address] [facility] [address], [facility] MCHC (RBC) [Mass/Vol] 32.5 g/dL Normal 32.0-35.0 [facility] Comment on above: Order Comment: << On admission If not done in ED>> No: Do not add to previous draw Performed By: #### 0 0121, 83216, 11287, 65446, 78894 #### [facility] [address] [facility] [place] [address], [facility] MCV (RBC) [Entitic vol] 88.0 fL Normal 82.0-98.0 [facility] Comment on above: Order Comment: << On admission If not done in ED>> No: Do not add to previous draw Performed By: #### 0 0121, 71691, 09975, 07168, 67671 #### [facility] [address] Nucleated RBC/100 WBC (Bld) [Ratio] 0 % Normal 0-0 [facility] Comment on above: Order Comment: << On admission If not done in ED>> No: Do not add to previous draw Performed By: #### 0 0121, 82750, 13963, 98417, 02002 #### [facility] [address] [place] [address], [facility] PLAT CNT 286 10*3/uL Normal 150-400 [facility] Comment on above: Order Comment: << On admission If not done in ED>> No: Do not add to previous draw Performed By: #### 0 0121, 40042, 24132, 20476, 99365 #### [facility] [address] [place] [address], [facility] RBC (Bld) [#/Vol] 6.09 10*6/uL High 4.20-5.70 [facility] Comment on above: Order Comment: << On admission If not done in ED>> No: Do not add to previous draw Performed By: #### 0 0121, 03909, 52760, 27559, 34619 #### [facility] [address] [place] [address], [facility] WBC (Bld) [#/Vol] 10.49 10*3/uL Normal 4.00-10.60 [facility] Comment on above: Order Comment: << On admission If not done in ED>> No: Do not add to previous draw Performed By: #### 0 0121, 31317, 86870, 47107, 23652 #### [facility] [address] [place] [address], [facility] LIPID PROFILEon 03-15-2019 Cholesterol [Mass/Vol] 140 mg/dL Normal 120-200 [facility] Comment on above: Order Comment: << On admission If not done in ED>> No: Do not add to previous draw Result Comment: CHOL ESTEROL REFERENCE RANGE: 20 YEARS AND OLDER CARDIOVASCULAR RISK Less than 200 mg/dl Low Risk 200 to 239 mg/dl Borderline Risk 240 mg/dl and greater High Risk Performed By: #### 0 0121, 50640, 50749, 52655, 18482 #### [facility] [address] [place] [address], [facility] Cholesterol in HDL [Mass/Vol] 38 mg/dL Normal 23-92 [facility] Comment on above: Order Comment: << On [...] High Risk Performed By: #### 0 0121, 86482, 01403, 34898, 93028 #### [facility] [address] [place] [address], [facility] Cholesterol in LDL [Mass/Vol] 88 mg/dL Normal 0-130 [facility] Comment on above: Order Comment: << On admission If not done in ED>> No: Do not add to previous draw Result Comment: LDL IS A CALCULATION LDL IS ONLY VALID IF THE TRIG IS LESS THAN 400. Performed By: #### 0 0121, 97749, 83736, 79941, 73261 #### [facility] [address] [place] [address], [facility] Cholesterol.total/Ch olesterol in HDL [Mass ratio] 3.7 {ratio} Normal .0-4.5 [facility] Comment on above: Order Comment: << On admission If not done in ED>> No: Do not add to previous draw Performed By: #### 0 0121, 31947, 58378, 04814, 12418 #### [facility] [address] NON-HDL CHOLESTEROL 102 mg/dL Normal The [facility] Comment on above: Order Comment: << On admission If not done in ED>> No: Do not add to previous draw Performed By: #### 0 0121, 53661, 23225, 31457, 51545 #### [facility] [address] [place] [address], [facility] Triglyceride [Mass/Vol] 70 mg/dL Normal 40-149 [facility] Comment on above: Order Comment: << On admission If not done in ED>> No: Do not add to previous draw Result Comment: TRIG LYCERIDE REFERENCE RANGE: 20 YEARS AND OLDER CARDIOVASCULAR RISK LESS THAN 150 mg/dl LOW RISK 150 TO 199 mg/dl BORDERLINE RISK 200 mg/dl AND GREATER HIGH RISK Performed By: #### 0 0121, 08960, 45403, 32034, 45309 #### [facility] [address] [place] [address], [facility] VLDL CHOL 14 mg/dL Normal 0-40 [facility] Comment on above: Order Comment: << On admission If not done in ED>> No: Do not add to previous draw Performed By: #### 0 0121, 79271, 71034, 78232, 59867 #### [facility] [address] TROPONIN-Ion 03-15-2019 Troponin I.cardiac [Mass/Vol] 0.01 ng/mL Normal 0.00-0.04 [facility] Comment on above: Order Comment: << On admission If not done in ED>> No: Do not add to previous draw Result Comment: REFE RENCE RANGES: 0.00 - 0.04 ng/ml NORMAL 0.05 - 0.50 ng/ml INDETERMINATE > 0.50 ng/ml CONSISTENT WITH AN M.I. Performed By: #### 0 0121, 35082, 37671, 08969, 83164 #### [facility] [facility] [address] UFH HEPARIN ASSAYon 03-15-20 19 UNFRACTIONATED HEPARIN 0.62 IU/mL Normal 0.30-0.70 The [facility] Comment on above: Order Comment: No: D o not add to previous draw Result Comment: [place] roxaban and Apixaban will interfere with the anti Xa assay used to monitor UFH and LMWH. Performed By: #### 0 0121, 14830, 37290, 84353, 33873 #### [facility] [address] [place] [address], [facility] UNFRACTIONATED HEPARIN 0.92 IU/mL Critically high 0.30-0.70 The [facility] Comment on above: Result Comment: [place] roxaban and Apixaban will interfere with the anti Xa assay used to monitor UFH and LMWH. RESULTS CHECKED AND CALLED. ACCURATELY READ BACK BY DAXA MONTEJO RN @ [phone] Performed By: #### 0 0121, 78910, 59693, 12850, 67457 #### [facility] [address] [place] [address], [facility] UNFRACTIONATED HEPARIN 0.90 IU/mL Critically high 0.30-0.70 The [facility] Comment on above: Result Comment: [place] roxaban and Apixaban will interfere with the anti Xa assay used to monitor UFH and LMWH. RESULTS CHECKED AND CALLED. ACCURATELY READ BACK BY DAXA MONTEJO RN @ [phone] Performed By: #### 0 0121, 99700, 27919, 94802, 77707 #### [facility] [address] APTTon 03-14-2019 aPTT Coag (Bld) [Time] 32.8 s Normal 25.0-35.0 The [facility] Comment on above: Order Comment: No: D [...] PURPOSE. Performed By: #### 5 7307 #### [facility] [address] BNP (B-TYPE NATRIURETIC PEPT PACHECO)on 03-14-2019 Natriuretic peptide B (Bld) [Mass/Vol] 112 pg/mL High 0-100 The [facility] Comment on above: Order Comment: If no t done in ED No: Do not add to previous draw Result Comment: Give n the appropriate clinical setting a BNP result of >100 pg/mL indicates congestive heart failure. Performed By: #### 8 5123, 98119 #### [facility] [address] CBC W/DIFFon 03-14-2019 ABS BASOPHILS 0.1 10*3/uL Normal 0.0-0.2 The [facility] Comment on above: Order Comment: If no t done in ED No: Do not add to previous draw Performed By: #### 5 0103 #### [facility] [address] [place] [address], [facility] ABS IMM GRANS 0.1 10*3/uL Normal 0.0-0.2 The [facility] Comment on above: Order Comment: If no t done in ED No: Do not add to previous draw Performed By: #### 5 0103 #### [facility] [address] [place] [address], [facility] ABS NEUTROPHILS 7.1 10*3/uL Normal 1.6-7.[address] [facility] Comment on above: Order Comment: If no t done in ED No: Do not add to previous draw Performed By: #### 5 0103 #### [facility] [address] [place] [address], [facility] Basophils/100 WBC (Bld) 1.0 % Normal 0.0-1.0 The [facility] Comment on above: Order Comment: If no t done in ED No: Do not add to previous draw Performed By: #### 5 0103 #### [facility] [address] [place] [address], [facility] Eosinophils (Bld) [#/Vol] 0.3 10*3/uL Normal 0.0-0.5 The [facility] Comment on above: Order Comment: If no t done in ED No: Do not add to previous draw Performed By: #### 5 0103 #### [facility] [address] [place] [address], [facility] Eosinophils/100 WBC (Bld) 2.8 % Normal 0.0-6.0 The [facility] Comment on above: Order Comment: If no t done in ED No: Do not add to previous draw Performed By: #### 5 0103 #### [facility] [address] [place] [address], [facility] Erythrocyte distribution width (RBC) [Ratio] 13.2 % Normal 11.5-15.0 The [facility] Comment on above: Order Comment: If no t done in ED No: Do not add to previous draw Performed By: #### 5 0103 #### [facility] [address] Hematocrit (Bld) [Volume fraction] 53.8 % High 39.0-50.0 The [facility] Comment on above: Order Comment: If no t done in ED No: Do not add to previous draw Performed By: #### 5 0103 #### [facility] [address] [place] [id number], [facility] Hemoglobin (Bld) [Mass/Vol] 17.2 g/dL High 13.0-17.0 The [facility] Comment on above: Order Comment: If no t done in ED No: Do not add to previous draw Performed By: #### 5 0103 #### [facility] [address] [place] [address], [facility] IMMATURE GRANS 0.5 % Normal 0.0-1.0 The [facility] sl[facility] Comment on above: Order Comment: If no t done in ED No: Do not add to previous draw Performed By: #### 5 0103 #### [facility] [address] [place] [address], [facility] Lymphocytes (Bld) [#/Vol] 2.4 10*3/uL Normal 1.2-4.0 The [facility] Comment on above: Order Comment: If no t done in ED No: Do not add to previous draw Performed By: #### 5 3 #### [facility] [address] [place] [address], [facility] Lymphocytes/100 WBC (Bld) 21.0 % Normal 20.0-45.0 The [facility] Comment on above: Order Comment: If no t done in ED No: Do not add to previous draw Performed By: #### 5 0103 #### [facility] [address] [place] [address], [facility] MCH (RBC) [Entitic mass] 28.9 pg Normal 27.0-33.0 The [facility] Comment on above: Order Comment: If no t done in ED No: Do not add to previous draw Performed By: #### 5 0103 #### [facility] [address] [place] [address], [facility] MCHC (RBC) [Mass/Vol] 32.0 g/dL Normal 32.0-35.0 The [facility] Comment on above: Order Comment: If no t done in ED No: Do not add to previous draw Performed By: #### 5 0103 #### [facility] [address] [place] [address], [facility] MCV (RBC) [Entitic vol] 90.4 fL Normal 82.0-98.0 The [facility] Comment on above: Order Comment: If no t done in ED No: Do not add to previous draw Performed By: #### 5 0103 #### [facility] [address] [place] [id number], [facility] Monocytes (Bld) [#/Vol] 1.4 10*3/uL High 0.1-1.0 The [facility] Comment on above: Order Comment: If no t done in ED No: Do not add to previous draw Performed By: #### 5 0103 #### [facility] [address] [facility] [place] [address], [facility] MONOS 12.2 % High 5.0-12.0 The [facility] Comment on above: Order Comment: If no t done in ED No: Do not add to previous draw Performed By: #### 5 0103 #### [facility] [address] [place] [address], [facility] Neutrophils/100 WBC (Bld) 62.5 % Normal 40.0-72.0 The [facility] Comment on above: Order Comment: If no t done in ED No: Do not add to previous draw Performed By: #### 5 0103 #### [facility] [address] [place] [id number], [facility] Nucleated RBC/100 WBC (Bld) [Ratio] 0 % Normal 0-0 The [facility] Comment on above: Order Comment: If no t done in ED No: Do not add to previous draw Performed By: #### 5 0103 #### [facility] [address] [place] [address], [facility] PLAT CNT 321 10*3/uL Normal 150-400 The [facility] Comment on above: Order Comment: If no t done in ED No: Do not add to previous draw Performed By: #### 5 0103 #### [facility] [address] [place] [address], [facility] RBC (Bld) [#/Vol] 5.95 10*6/uL High 4.20-5.70 [facility] Comment on above: Order Comment: If no t done in ED No: Do not add to previous draw Performed By: #### 5 0103 #### [facility] [address] [facility] [place] [address], [facility] WBC (Bld) [#/Vol] 11.32 10*3/uL High 4.00-10.60 [facility] Comment on above: Order Comment: If no t done in ED No: Do not add to previous draw Performed By: #### 5 0103 #### [facility] [address] COMP METABOLIC PANELon 03-14 Albumin [Mass/Vol] 4.3 g/dL Normal 3.5-5.7 [facility] Comment on above: Order Comment: << On admission If not done in ED>> No: Do not add to previous draw Performed By: #### 0 0121, 85991, 08162, 54739, 24613 #### [facility] [address] [facility] [address], [facility] ALKALINE PHOSPH 59 IU/L Normal 34-104 The [facility] Comment on above: Order Comment: << On admission If not done in ED>> No: Do not add to previous draw Performed By: #### 0 0121, 12857, 00151, 36851, 74880 #### [facility] [address] [place] [address], [place] ALT [Catalytic activity/Vol] 21 U/L Normal 7-52 The [facility] Comment on above: Order Comment: << On admission If not done in ED>> No: Do not add to previous draw Performed By: #### 0 0121, 69567, 10930, 19854, 07189 #### [facility] [address] [place] [address], [place] AST [Catalytic activity/Vol] 26 U/L Normal 13-39 The [facility] Comment on above: Order Comment: << On admission If not done in ED>> No: Do not add to previous draw Performed By: #### 0 0121, 83168, 64141, 25212, 66253 #### [facility] [address] [place] [address], [place] Bilirubin [Mass/Vol] 1.1 mg/dL High 0.3-1.0 The [facility] Comment on above: Order Comment: << On admission If not done in ED>> No: Do not add to previous draw Performed By: #### 0 0121, 36824, 64273, 04412, 68347 #### [facility] [address] [place] [address], [place] Calcium [Mass/Vol] 10.5 mg/dL High 8.6-10.[address] [facility] Comment on above: Order Comment: << On admission If not done in ED>> No: Do not add to previous draw Performed By: #### 0 0121, 64710, 60142, 92804, 37970 #### [facility] [address] [place] [address], [place] Chloride [Moles/Vol] 98 mmol/L Normal 98-107 The [facility] Comment on above: Order Comment: << On admission If not done in ED>> No: Do not add to previous draw Performed By: #### 0 0121, 95132, 52723, 71906, 05574 #### [facility] [address] [place] [address], [place] CO2 [Moles/Vol] 31 mmol/L Normal 21-31 The [facility] Comment on above: Order Comment: << On admission If not done in ED>> No: Do not add to previous draw Performed By: #### 0 0121, 40292, 51748, 27042, 83696 #### [facility] [address] [place] [address], [place] Creatinine [Mass/Vol] 1.36 mg/dL High 0.70-1.30 [facility] Comment on above: Order Comment: << On admission If not done in ED>> No: Do not add to previous draw Performed By: #### 0 0121, 12519, 18487, 76764, 93630 #### [facility] [address] [place] [address], [facility] GFR/1.73 sq M predicted among blacks MDRD (S/P/Bld) [Vol rate/Area] mL/min/{1.73_m2} Normal >60 [facility] Comment on above: Order Comment: << On admission If not done in ED>> No: Do not add to previous draw Performed By: #### 0 0121, 16412, 79829, 81212, 83912 #### [facility] [address] [place] [address], [facility] GFR/1.73 sq M predicted among non-blacks MDRD (S/P/Bld) [Vol rate/Area] 55 ml/min/1.73sq m Abnormal >60 [facility] Comment on above: Order Comment: << On admission If not done in ED>> No: Do not add to previous draw Performed By: #### 0 0121, 62266, 00415, 23207, 04976 #### [facility] [address] [place] [address], [place] Glucose [Mass/Vol] 81 mg/dL Normal 70-[address] [facility] Comment on above: Order Comment: << On admission If not done in ED>> No: Do not add to previous draw Performed By: #### 0 0121, 34444, 28524, 72774, 22487 #### [facility] [address] [place] [address], [place] Potassium [Moles/Vol] 3.8 mmol/L Normal 3.5-5.1 The [facility] Comment on above: Order Comment: << On admission If not done in ED>> No: Do not add to previous draw Performed By: #### 0 0121, 10977, 67907, 45320, 98850 #### [facility] [address] [place] [address], [place] Protein [Mass/Vol] 7.4 g/dL Normal 6.0-8.[address] [facility] Comment on above: Order Comment: << On admission If not done in ED>> No: Do not add to previous draw Performed By: #### 0 0121, 87215, 94058, 17130, 73551 #### [facility] [address] [place] [address], [place] Sodium [Moles/Vol] 138 mmol/L Normal 136-[address] [facility] Comment on above: Order Comment: << On admission If not done in ED>> No: Do not add to previous draw Performed By: #### 0 0121, 72169, 13321, 71152, 41039 #### [facility] [address] [place] [address], [place] Urea nitrogen [Mass/Vol] 26 mg/dL High 7-25 The [facility] Comment on above: Order Comment: << On admission If not done in ED>> No: Do not add to previous draw Performed By: #### 0 0121, 27350, 90854, 80001, 07556 #### [facility] [address] FREE T4on 03-14-2019 Free T4 [Mass/Vol] 1.18 ng/dL Normal 0.71-1.[address] [facility] Comment on above: Order Comment: If no t done in ED No: Do not add to previous draw Performed By: #### 0 0121, 36920, 81975, 17419, 01672 #### [facility] [address] HEMOGLOBIN A1Con 03-14-2019 HbA1c (Bld) [Mass fraction] 103 mg/dL Normal 70-126 The [facility] Comment on above: Order Comment: If no t done in ED No: Do not add to previous draw Performed By: #### 8 5123, 95125 #### [facility] [address] HbA1c (Bld) [Mass fraction] 5.2 % Normal 4.0-6.0 [facility] Comment on above: Order Comment: If no t done in ED No: Do not add to previous draw Performed By: #### 8 5123, 62367 #### [facility] [address] History and Physicalon 03-14 History and Physical MR#: [id number] [facility] Pt. Name: Argelia Crain Admitted: 03/14/2019 Date of : 1965 Attending Physician: Dimitry Lyles M.D. Room #: [id number] Discharge Date: HISTORY AND PHYSICAL CHIEF COMPLAINT: Atrial fibrillation and bilateral lower extremity swelling. HISTORY OF PRESENT ILLNESS: Mr. Whitt is a 53-year-old male with the past medical history of depression and GERD, who was transferred from [facility] for atrial fibrillation and congestive heart failure. The patient states that he has been complaining of progressively worsening bilateral lower extremity swelling for the last four months. The patient states that he has never had bilateral lower extremity swelling like this in the past. The patient [facility] and was sent to [facility]. At [facility], EKG showed atrial fibrillation with RVR. Chest x-ray showed bilateral pulmonary venous congestion. The patient was admitted for one day at [facility] and was started on metoprolol 75 mg twice a day and Eliquis. The patient was also diuresed with Lasix and put out around 2.8 L of urine. An echocardiogram was done at [facility], which showed a reduced ejection fraction, but [...] drug use. 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 FAMILY HISTORY: Father [...] he received metoprolol 75 mg b.i.d. at [facility]. His heart rate is currently in the 80s to 90s. Will start him on metoprolol 12.5 mg BID. The patient received a dose of Eliquis today this morning at [facility], will discontinue Eliquis and start him on heparin drip in the evening around 10 p.m. His TSH and T4 were normal at [facility]. If the patient does not convert back to normal sinus rhythm, the patient will have GERMAN/cardioversion on Saturday. 2. Acute systolic CHF exacerbation: An echocardiogram at [facility] showed reduced ejection fraction. The patient was diuresed with Lasix 40 mg IV twice a day at [place] and diuresed around 2.8 L. Will start [...] Lyles M.D. Date Trans: 03/14/2019 01:33 P/bessie [id number] Normal The [facility] MAGNESIUM BLOODon 03-14-2019 Magnesium [Mass/Vol] 2.4 mg/dL Normal 1.9-2.7 [facility] Comment on above: Order Comment: << ON ADMISSION If not done in ED>> No: Do not add to previous draw Performed By: #### 0 0121, 84923, 79300, 69006, 39[address] #### [place] [address], [facility] PORTABLE CHEST 1 VIEWon 02-28 PORTABLE CHEST 1 VIEW [facility] Department of Radiology [address] [place] [id number] ======== Patient Name: ARGELIA RCAIN : 1965 Sex: M Age: Race: NA Pt. Location: [id number] Patient Status: I Ordered Date: 03/14/2019 10:35:00 [...] findings. Electronically signed by:Yenni Osuna. Transcribed by: [id number], User Resident: KAREEM LIAO Electronically Signed by: YENNI OSUNA @ 03/14/2019 04:53 PM I personally read this/these film(s) with this resident Normal [facility] Comment on above: Order Comment: R/O P ulmonary Edema TROPONIN-Ion 03-14-2019 Troponin I.cardiac [Mass/Vol] 0.00 ng/mL Normal 0.00-0.04 [facility] Comment on above: Order Comment: << On admission If not done in ED>> No: Do not add to previous draw Result Comment: REFE RENCE RANGES: 0.00 - 0.14 ng/ml NEGATIVE 0.15 - 0.25 ng/ml INDETERMINATE > 0.25 ng/ml INDICATIVE OF AN M.I. Performed By: #### 0 0121, 24300, 77494, 29777, 03131 #### [facility] [address] [facility] [address], [facility] Troponin I.cardiac [Mass/Vol] 0.01 ng/mL Normal 0.00-0.04 [facility] Comment on above: Order Comment: No: D o not add to previous draw Result Comment: REFE RENCE RANGES: 0.00 - 0.04 ng/ml NORMAL 0.05 - 0.50 ng/ml INDETERMINATE > 0.50 ng/ml CONSISTENT WITH AN M.I. Performed By: #### 0 0121, 29203, 61094, 10099, 83942 #### [facility] [address] [facility] [address], [facility] TSH3on 03-14-2019 TSH 3RD GENERATION 2.05 uIU/mL Normal 0.34-5.60 [facility] Comment on above: Order Comment: TSH3 with Reflex canceled. TSH3 ordered. Performed By: #### 0 0121, 88772, 51828, 92802, 61262 #### [facility] [address] [place] [address], [facility] CBC With Platelet No Differe ntialon 03-04-2018 Erythrocyte distribution width Auto Ratio (RBC) 13.9 % Normal 11.5-14.5 [facility] Erythrocytes (RBC) 5.34 10*6/uL Normal 4.70-6.10 [facility] Hematocrit (HCT) 49.8 % Normal 42.0-52.0 [facility] Hemoglobin mass conc (Bld) 16.4 g/dL Normal 14.0-18.0 [facility] MCH 30.8 pg Normal 27.0-31.3 [facility] MCHC mass conc (RBC) 33.0 % Normal 33.0-37.0 [facility] MCV 93.3 fL Normal 80.0-100.0 [facility] Platelets 281 10*3/uL Normal 130-400 [facility] WBC (Leukocytes) 9.3 10*3/uL Normal 4.8-10.8 [facility] Comprehensive Metabolic Pane gian 03-04-2018 Alanine aminotransferase (ALT) 20 U/L Normal 0-41 [facility] Albumin 4.6 g/dL Normal 3.9-4.9 [facility] Alkaline phosphatase (ALP) 56 U/L Normal 35-104 [facility] Anion gap 18 mmol/L Critically high 7-13 [facility] Aspartate aminotransferase (AST) 18 U/L Normal 0-40 [facility] Bilirubin (total) 0.7 mg/dL Normal 0.0-1.2 [facility] Calcium 9.4 mg/dL Normal 8.6-10.2 [facility] Chloride 103 mmol/L Normal 98-107 [facility] CO2 20 mmol/L Low 22-29 [facility] Creatinine 0.78 mg/dL Normal 0.70-1.20 [facility] eGFR (black) mL/min/{1.73_m2} Normal >60 [facility] Comment on above: Result Comment: >60 mL/min/1.73m2 EGFR, calc. for ages 18 and older using theMDRD formula (not corrected for weight), is valid for stablerenal function. eGFR (MDRD) mL/min/{1.73_m2} Normal >60 [facility] Comment on above: Result Comment: >60 mL/min/1.73m2 EGFR, calc. for ages 18 and older using theMDRD formula (not corrected for weight), is valid for stablerenal function. Globulin 2.7 g/dL Normal 2.3-3.5 [facility] Glucose mass conc 91 mg/dL Normal 74-109 [facility] Potassium molar conc 4.1 mmol/L Normal 3.5-5.1 [facility] Protein 7.3 g/dL Normal 6.4-8.1 [facility] Sodium 141 mmol/L Normal 132-144 [facility] Urea nitrogen 15 mg/dL Normal 6-20 [facility] Hemoglobin A1con 03-04-2018 Hemoglobin A1c/Hemoglobin.total mass fraction (Bld) 5.5 % Normal 4.8-5.9 [facility] Lipid Panelon 03-04-2018 Cholesterol 167 mg/dL Normal 0-199 [facility] Comment on above: Result Comment: ATP III Cholesterol classification is Desirable. HDL Cholesterol 47 mg/dL Normal 40-59 [facility] Comment on above: Result Comment: ATP III HDL Cholesterol Classification is Desirable.Expected Values:Males: >55 = No Risk 35-55 = Moderate Risk <35 = High RiskFemales: >65 = No Risk 45-65 = Moderate Risk <45 = High RiskNCEP Guidelines: Third Report January 2001>59 = negative risk factor for CHD<40 = major risk factor for CHD LDL Cholesterol 99 mg/dL Normal 0-129 [facility] Comment on above: Result Comment: ATP III LDL Classification is Optimal. Triglyceride 105 mg/dL Normal 0-200 [facility] Comment on above: Result Comment: ATP III Triglycerides Classification is Normal. Prostate Specific Ag Screeno n 03-04-2018 Prostate Specific Ag Screen 2.25 ng/mL Normal 0.00-3.89 [facility] Comment on above: Result Comment: When the Total PSA is between 3.00 and 10.00 ng/mL, considerrequesting a Free PSA to aid in diagnosis. TSH w/out Reflexon 8 Thyroid stimulating hormone (TSH) 2.550 uIU/mL Normal 0.270-4.20 [facility] Thyroxine Freeon 03-04-2018 Thyroxine Free 1.54 ng/dL Normal 0.93-1.70 [facility] Vital Signs Date Time Vital Sign Value Performing Clinician Facility 11-09-2024 16:35-0500 Body height 190.5 cm Everette Buddy DO Work Phone: [facility] 11-09-2024 16:35-0500 Body mass index (BMI) [Ratio] 34.37 kg/m2 Everette Buddy DO Work Phone: [facility] 11-09-2024 16:35-0500 Body weight 124.74 kg Everette Buddy DO Work Phone: [facility] 11-09-2024 16:35-0500 Diastolic blood pressure 80 mm[Hg] Everette Buddy DO Work Phone: [facility] 11-09-2024 16:35-0500 Heart rate 84 /min Everette Buddy DO Work Phone: [facility] 11-09-2024 16:35-0500 SaO2% (BldA) [Mass fraction] 95 % Everette Buddy DO Work Phone: [facility] 11-09-2024 16:35-0500 Systolic blood pressure 126 mm[Hg] Everette Buddy DO Work Phone: [facility] 03-21-2019 15:41-0400 Respiratory rate 16 /min TITUS VILLEGAS [facility] Comment on above: Performed By: #### [id number], [id number], [id number], 15958, 38663 #### [facility] [address] [place] [address], [facility] 03-21-2019 06:18-0400 Respiratory rate 16 /min TITUS VILLEGAS [facility] Comment on above: Performed By: #### [id number], 54802, 59368, 34580, [id number] #### [facility] [address] [place] [address], [facility] 03-20-2019 15:18-0400 Respiratory rate 16 /min TITUS HOY [facility] Comment on above: Performed By: #### [id number], [id number], 77606, 42263, [id number] #### [facility] [address] [place] [address], [facility] 03-20-2019 06:10-0400 Respiratory rate 16 /min TITUS HOY [facility] Comment on above: Performed By: #### [id number], [id number], 17206, 32490, 87361 #### [facility] [address] [place] [address], [facility] 03-20-2019 01:22-0400 Respiratory rate 16 /min TITUS HOY [facility] Comment on above: Performed By: #### [id number], 22432, 33269, 24722, 85175 #### [facility] [address] [place] [address], [facility] 03-19-2019 22:02-0400 Respiratory rate 16 /min TITUS HOY [facility] Comment on above: Performed By: #### [id number] #### [facility] [address] [place] [address], [facility] 03-19-2019 20:06-0400 Respiratory rate 16 /min TITUS HOY [facility] Comment on above: Performed By: #### [id number], [id number] ####[facility] [place] [address], [facility] 03-19-2019 18:48-0400 Respiratory rate 16 /min TITUS HOY [facility] Comment on above: Order Comment: R/O Pulmonary Edema Performed By: #### [id number], [id number] ####[facility] [place] [address], [facility] Encounters Encounter Date Encounter Type Care Provider Facility Start: 11-09-2024 End: 11-09-2024 Office outpatient new 45 minutes Everette Goodwin DO Work Phone: [facility] Comment on above: ZULEIMA (obstructive sle ep apnea) (Primary Dx); Shift work sleep disorder; Hypersomnia; Snoring; Obesity due to excess calories, unspecified class, unspecified whether serious comorbidity present Start: 11-09-2024 End: 11-09-2024 ambulatory EVERETTE GOODWIN Not Available Start: 11-09-2024 End: 11-09-2024 Bamboo flowsheet Everette Goodwin DO Work Phone: [facility] Start: 11-09-2024 End: 11-09-2024 Bamboo flowsheet Everette Goodwin DO Work Phone: [facility] Start: 06-26-2024 End: 06-26-2024 ambulatory [facility] Start: 05-05-2024 Evaluation and management of inpatient [facility] Start: 05-05-2024 End: 05-06-2024 Evaluation and management of inpatient [facility] Start: 03-26-2024 End: 03-26-2024 ambulatory [facility] Start: 02-28-2024 End: 02-28-2024 ambulatory [facility] Start: 01-24-2024 End: 01-24-2024 ambulatory [facility] Start: 10-23-2023 End: 10-23-2023 ambulatory [facility] Start: 02-05-2023 End: 02-06-[address] [...] abnormal findings DR TITUS VILLEGAS . [facility] Start: 04-05-2022 End: 04-06-[address] TITUS VILLEGAS . Facility:[facility] Start: 04-05-2022 End: 04-06-2022 Encounter for general adult medical examination without abnormal findings DR TITUS VILLEGAS . Facility:[facility] Start: 03-08-2022 End: 03-09-[address] MELIDA CUELLAR Facility:[facility] Start: 05-12-2019 End: 05-13-2019 Patient encounter procedure ILAN DANIELSON Facility:[facility] Start: 03-14-2019 End: 03-27-2019 Evaluation and management of inpatient TITUS VILLEGAS Facility:[facility] Procedures Date Procedure Procedure Detail Performing Clinician Start: 04-05-[address] MELIDA CUELLAR Comment on above: Performed By: #### P [facility] ####[place] [id number]. Leonie Beckham Start: 03-19-2019 DESTRUCTION OF CONDU [...] on above: Performed By: #### 0 [id number], [id number], 08181, 74528, 96826 #### [facility] [address] [facility] [place] [address], [facility] Start: 03-16-2019 MEASURE CARDIAC SAMP L \T\ PRESSURE, BILATERAL, PERC KRYS DAY Start: 03-16-2019 FLUOROSCOPY OF LEFT HEART USING OTHER CONTRAST KRYS DAY Start: 03-16-2019 FLUOROSCOPY OF MULTI PLE CORONARY ARTERIES USING OTH CONTRAST [facility] DAY Start: 03-16-2019 [employer] of Cardi ac Rhythm, Single ILAN DANIELSON Plan of Treatment Date Care Activity Detail Author Start: 11-09-2024 End: 11-09-2024 Patient encounter procedure 11/09/2024 4:30 PM EST Office Visit [facility] [address] [place] [address] Everette Goodwin DO [address] [place] [address] Arrived [facility] Comment on above: Arrived Start: 09-01-2024 Influenza vaccination Influenza Vacc ine (#1) [facility] Start: 1965 Screening for malign ant neoplasm of colon [facility] Immunizations Immunization Date Immunization Notes Care Provider Dwight aldojunaid 10-07-2021 influenza virus vacc ine, unspecified formulation Everette Goodwin DO Work Phone: [facility] Healthcare Payers Date Payer Category Payer [facility] BCBS [id number] 1965 Unknown [id number] 2.840.1.463263.3.579. 2.647 1965 Unknown [id number] 2.840.1.864369.3.579. 2.647 1964 Unknown [id number] 2.840.1.027481.3.579. 2.593 1964 Unknown [id number] 2.840.1.693323.3.579. 2.593 1964 Unknown [id number] 2.16840.1.847833.3.579. 2.593 1964 Unknown [id number] 2.16840.1.601840.3.579. 2.593 1964 Unknown [id number] 2.16840.1.018168.3.579. 2.593 1964 Unknown [id number] 2.16840.1.205338.3.579. 2.593 1964 Unknown [id number] 2.840.1.121358.3.579. 2.593 1964 Unknown [id number] 2.16.840.1.626136.3.579. 2.593 1964 Unknown [id number] 2.16.840.1.720712.3.579. 2.593 1964 Unknown [id number] 2.16.840.1.114680.3.579. 2.593 1964 Unknown [id number] 2.16.840.1.689944.3.579. 2.593 1964 Unknown [id number] 2.16.840.1.698907.3.579. 2.593 1964 Unknown [id number] 2.16.840.1.461748.3.579. 2.593 1964 Unknown [id number] 2.16.840.1.521060.3.579. 2.593 1964 Unknown [id number] 2.16.840.1.098233.3.579. 2.593 1964 Unknown [id number] 2.16.840.1.019558.3.579. 2.593 1964 Unknown [id number] 2.16.840.1.425553.3.579. 2.1259 1960 Self-pay 1960 Unknown [id number] Social History Date Type Detail Facility Tobacco smoking stat [facility] Tobacco smoking consumption unknown [facility] Start: 1965 Sex assigned at Not on file [facility] Start: 11-09-2024 Gender identity Not [facility] file [facility] Start: 11-09-2024 Tobacco smoking stat [facility] Never smoked tobacco [facility] Start: 11-09-2024 Tobacco use and exposure Smokeless t obacco non-user [facility] Start: 11-09-2024 History of Social function [facility] Clinical Notes 11-29-2020 to 11-09-2024 Everette Goodwin DO - 11/09/2024 4:30 PM EST Note Date & Type Note Facility 11-09-2024 History of Present illness Narrative Images from the original note were not included. Chief Complaint Patient presents with Sleep Apnea Subjective Tracie Crain, 59 y.o., male HPI The patient states that for the most part he sleep ok. The swing shift makes it hard at times. He is wearing his machine nightly. He states that his machine is getting old and is getting loud. It does not seem to be malfunctioning. He is on the shift work still. He still has nights one well and days the next week. He has a few days that he did not put his machine on. He may fall asleep before putting it on. The machine is about 4.5 years old. He got it from [employer] which is now [facility]. NO other new medical issues since his last visit. History reviewed. No pertinent past medical history. History reviewed. No pertinent surgical history. No family history on file. Social History Tobacco Use Smoking status: Never Smokeless tobacco: Never Substance Use Topics Alcohol use: Not on file Allergies: Patient has no known allergies. General: No fever or chills HEENT: No nasal congestion or runny nose Pulmonary: No shortness of breath or cough Cardiovascular: No chest pain or palpitations GI: No nausea or vomiting : No dysuria or hematuria Musculoskeletal: No new aches or pains or muscle weakness Infectious: no recurrent fevers or infections Dermatologic: No rashes or skin lesions Neurologic: No new headaches or dizziness Vitals: 11/09/24 1635 BP: 126/80 Pulse: 84 SpO2: 95% Body mass index is 34.37 kg/m . weight: 275 lb Neurologic exam: General: overweight, cooperative, pleasant Mental status: Awake, alert to person, place and time. Recent and remote memory are intact. Attention and concentration are normal. Fund of knowledge is appropriate for level of education. HEENT: NC/AT Cranial nerves: CN II: Visual sandhu full to confrontation. No loss of vision CN III, IV, : pupils equal round and reactive to light. Extraocular movements intact. No ptosis present. CN V: Facial sensation is normal. CN VII: Full and symmetric facial movement. CN VIII: Hearing is normal CN IX and X: Palate elevates symmetrically. CN XI: Shoulder shrug is normal bilaterally. CN XII: Tongue is midline without atrophy or fasciculation. Speech: Clear and fluent no aphasia or dysarthria Pronator drift: Negative bilateral upper extremity Coordination: Intact, no signs of dysmetria Good finger to nose and rapid alternating movements Sensory: Sensation is intact to light, temperature and vibratory touch throughout four extremities. Pinprick intact in all four extremities. Motor: LUE 5/5 RUE 5/5 LLE 5/5 RLE 5/5 Tone: Physiologic, no tremor, bradykinesia or rigidity DTR: Bilateral Biceps 2/4 Bilateral BR 2/4 Bilateral Patellar 2/4 No spasticity Gait: Normal to casual gait Romberg's Negative Review and summary of old records: Assessment/Plan Diagnoses and all orders for this visit: ZULEIMA (obstructive sleep apnea) Shift work sleep disorder Hypersomnia Snoring Obesity due to excess calories, unspecified class, unspecified whether serious comorbidity present 59-year-old male with a moderate obstructive sleep apnea leading to daytime hypersomnolence and snoring. He is controlled with the use of his CPAP machine. He is using it 87 percent of the time but 80 percent of the time greater than 4 hours with an average nightly usage of 6 hours and 22 minutes and residual AHI of 0.7. Sometimes he falls asleep before he gets the mask and machine on. He still is working shift work with 1 week nights the next week days he works 4 days 1 week and 3 days the next. This significantly disturbs his sleep cycle however this is the way his company does it and they will not make any changes. He is overweight would benefit from some weight loss. He denies any other new issues since we have seen him in 2020. His machine is getting louder and making more noise however he is likely not due for a new machine until later in 2024 as he likely got it late 2019. We will try to find out exactly when he got his machine. Plan Compliance data is reviewed and he is compliant He needs to get his machine every night and try not to fall asleep before he gets the machine on We will send for new supplies We will try to find out when he got his machine to see when is 5 years her up to get a new machine The patient was counseled on the need for aggressive diet, exercise, and weight loss. The patient was counseled on proper sleep hygiene and adequate hours of sleep. The patient was counseled on the risks of stroke, [place], and sudden with ZULEIMA, along with the need for compliance with the CPAP/BiPAP treatment. The diagnosis was all discussed with the patient. All questions were answered and they agreed with the treatment plan. Patient will call if there are any new issues or questions. Pt has been fully educated on their diagnosis, treatment options, follow up plan, and return instructions Return to clinic: 1 year or when due for a new machine documented in this encounter [facility] 06-26-2024 Note PA Cardiology - [facility] Subjective Tracie Crain is a 59 [...] When compared with ECG of 21-MAR-2019 20:42, PA interval has decreased, Vent. rate has increased [...] pressures consistent with (more content not included)... [facility] 05-06-2024 Note 05/06/24 1003 Admission Assessment Questions [...] Status Interested Does the patient have a director of casework department assigned to them through their insurance? No [...] link and activate MyChart? MyChart already active [facility] 05-05-2024 Note Interventional cardi ology update Patient's remains with a 4 Azeri arterial sheath in right INTENSIVE CARE UNIT NURSE. ACT has been trending down last checked results with at 154. Patient evaluated bedside and arterial sheath removed with manual pressure for hemostasis. No hematoma formation. Patient tolerated well. 1 mg of Versed and 25 mcg of fentanyl administered IV. Recommend strict bedrest until 3 AM. Isaura Lee MD PGY-7 Interventional Patient Admitting Clerk [facility] 05-05-2024 Note Patient: Tracie kaminski Procedure Information Date/Time: 05/05/24 1330 Procedures: Atrial septal defect closure - PC APPROVED 05/05 Right heart cath Location: [facility] VEGETABLE TESTER 3 / [facility] (Cath) Providers: Viet Salas MD [...] consented to blood products. Additional Equipment Requests [facility] 03-26-2024 Note PA Cardiology - [facility] Subjective Tracie Crain is a 58 [...] When compared with ECG of 21-MAR-2019 20:42, PA interval has decreased, Vent. rate has increased [...] in follow up. (more content not included)... [facility] 02-28-2024 Note Patient: Tracie Amaya gordy Procedure Information Date/Time: 02/28/24 1300 Procedure: Right heart cath Location: [facility] VEGETABLE TESTER 3 / [facility] (Cath) Providers: Viet Salas MD Clinical information reviewed: Allergies Meds Physical Exam Airway Mallampati: II TM distance: >3 FB Neck ROM: full Cardiovascular Rhythm: regular Rate: normal Dental Pulmonary Abdominal Anesthesia Plan ASA 3 other (Conscious sedation.) Anesthetic plan and risks discussed with patient. Use of blood products discussed with patient who consented to blood products. Additional Equipment Requests [facility] 02-28-2024 Note Brief procedure note : GERMAN [...] Full report to follow Dr. Brook Arenas [facility] 02-28-2024 Note Patient: Tracie kaminski Procedure Information Date/Time: 02/28/24 1300 Procedure: GERMAN Location: [facility] VEGETABLE TESTER / [facility] (Cath) Providers: Brook Arenas Clinical information reviewed: Allergies Meds Physical Exam Airway Mallampati: II Neck ROM: full Cardiovascular Rhythm: regular Rate: normal Dental Pulmonary Breath sounds clear to auscultation Abdominal - normal exam Anesthesia Plan ASA 3 CSE Anesthetic plan and risks discussed with patient. [facility] 01-24-2024 Note PA Cardiology - [facility] Subjective Tracie Crain is a 58 [...] When compared with ECG of 21-MAR-2019 20:42, PA interval has decreased, Vent. rate has increased [...] and metoprolol dosing (more content not included)... [facility] 10-23-2023 Note PA Cardiology - [facility] Subjective Tracie Crain is a 58 [...] When compared with ECG of 21-MAR-2019 20:42, PA interval has decreased, Vent. rate has increased [...] consistent with deco (more content not included)... [facility] 11-29-2020 Note Chief Complaint referral for nevus [...] vaccine, inactivated - Not Given Patient Refuses [facility] Comment on above: Result Comment: Elec tronically Signed By: Tracie WOODY MD\Date and Time Signed: 11/29/20 14:05 EST Evaluation note Diagnosis ZULEIMA (obstructive sleep apnea)- Primary Obstructive sleep apnea (adult) (pediatric) Shift work sleep disorder Circadian rhythm sleep disorder, shift work type Hypersomnia Hypersomnia, unspecified Snoring Other dyspnea and respiratory abnormality Obesity due to excess calories, unspecified class, unspecified whether serious comorbidity present documented in this encounter [facility] Summary Purpose Family History No Family History Records FoundNo Family History Records FoundNo Family History Records FoundNo Family History Records FoundNo Family History Records FoundNo Family History Records Found Advance Directives No Advanced Directives Records FoundNo Advanced Directives Records FoundNo Advanced Directives Records FoundNo Advanced Directives Records FoundNo Advanced Directives Records FoundNo Advanced Directives Records Found Hospital Course Note MR#: [id number] [facility] Pt. Name: Tracie Crain Admitted: 03/14/2019 Discharged: 03/27/2019 Date of : 1965 Physician: Timbo Black MD DISCHARGE SUMMARY HISTORY: This is a 53-year-old male who was transferred from [facility] for further management of new-onset atrial fibrillation and systolic heart failure. Over the past 2 weeks, he had been having symptoms of lower extremity swelling. He denied chest pain and was very short of breath according to the . At [facility], he was noted to have severe pulmonary venous congestion and was transferred to [facility] after echocardiogram revealed reduced left ventricular [...] section and content) DATE CREATED AUTHOR 03/18/2018 [facility] DATE CREATED AUTHOR AUTHOR'S ORGANIZ ATION 03/02/2020 [facility] DATE CREATED AUTHOR AUTHOR'S ORGANIZ ATION 02/12/2021 [facility] DATE CREATED AUTHOR AUTHOR'S ORGANIZ ATION 02/10/2023 [facility] DATE CREATED AUTHOR AUTHOR'S ORGANIZ ATION 06/27/2024 [facility] DATE CREATED AUTHOR AUTHOR'S ORGANIZ ATION 11/11/2024 [facility] EPIC Care Teams (unrecognized sec tion and content) Academic Advisement Director Relationship Specialty Start Date End Date Titus Villegas MD [address] [place] [address] PCP - General Family Medicine 11/09/24 Academic Advisement Director Relationship Specialty Start Date End Date Titus Villegas MD [address] [place] [address] PCP - General Family Medicine 11/09/24 Reason for Visit (unrecogniz ed section and content) Reason Comments Sleep Apnea FOR RECORDS PERTAINING TO PATIENTS WHO ARE [...] BE BASED ON THE PRIMARY CLINICAL RECORDS. [facility]. provides no warranty or guarantee of the accuracy or completeness of information in this document.
--- NOTE | 2024-12-25 07:30 | CA_ITS ---
Patient Name: TRACIE KOCH MR#: [id number] : 1965 Exam Date: 12/25/2024 Ordering Doctor: DR VIET SALAS M.D. ECHOCARDIOGRAM REPORT PROCEDURE: CA ECHO DOPPLER COMPLETE INDICATIONS: Pulmonary hypertension, mitral valve ring (30mm Physio-ring), PFO closure, 40mm SCARLET clip COMPARISON: None. DESCRIPTION: COMPLETE ECHOCARDIOGRAM Real-time transthoracic echocardiography with 2D, M-mode, spectral and color flow Doppler performed. QUALITY: Technical quality was good. LEFT VENTRICLE: Normal chamber size. Normal left ventricular wall thickness. Normal systolic function. LV EF: Normal left ventricular ejection fraction, (>55%). DIASTOLIC: ATRIAL SEPTUM: Visually appears intact. LEFT ATRIUM: Severe dilatation. RIGHT ATRIUM: Severe dilatation. RIGHT VENTRICLE: Moderate dilatation. Mildly reduced right ventricular systolic function. TRICUSPID VALVE: Normal mobility and thickness. No stenosis with moderate regurgitation. Doppler studies reveal severely (>60) elevated right sided pressures. RVSP 68 mmHg MITRAL VALVE: Trivial mitral regurgitation. Annuloplasty ring is seen in the mitral position with elevated Doppler flow. Mean diastolic gradient is 7.6 mmHg. AORTIC VALVE: Normal trileaflet appearance. No visible sclerosis. Normal leaflet mobility. No evidence of aortic valve stenosis. No aortic regurgitation. AORTIC ROOT: Normal diameter and appearance. PULMONIC VALVE: Normal thickness and mobility. No stenosis. No regurgitation. PERICARDIUM: No evidence of pericardial effusion. IVC: IVC is dilated (3.1 cm), with no collapse PLEURA: CONCLUSION: 1. Normal left ventricular size and systolic function. Estimated LVEF is 55 to 60%. 2. Moderately dilated right ventricle with mildly reduced systolic function. 3. Severe biatrial dilatation. 4. Mitral valve status post ring repair with elevated Doppler flow. Mean diastolic gradient 7.6 mmHg. 5. Mild to moderate tricuspid regurgitation. 6. Severely elevated right-sided pressures. RVSP is 68 mmHg. Adult Echocardiography Procedure Report Left Ventricle LVEDD (3.7 - 5.6 cm): 5.07 cm LVESD (2.2 - 4.0 cm): 3.90 cm LVIVS thickness (0.6 - 1.2 cm): 1.08 cm LVPW thickness (0.5 - 1.0 cm): 1.92 cm LVOT Max Gradient: 2.18 mm[Hg] LVOT Area (cm2): 0.74 m/s Peak Velocity (LVOT): 0.74 m/s Mean Velocity (LVOT): 0.53 m/s LVOT Diameter 2.40 cm Left Atrium LA Volume Index (2D A2C): 58.53 ml/m2 Left Atrium Systolic Dimension: 6.04 cm Mitral Valve MV E to A Ratio: 0.51 Mitral Valve A-Wave Peak Velocity: 1.60 m/s Mitral Valve E-Wave Peak Velocity: 0.81 m/s Right Ventricle Aorta AO Root Diam: 3.83 cm Aortic Valve AoV Area (Peak Kane): 3.13 cm2, 3.13 cm2 AoV Area (VTI): 3.68 cm2, 3.68 cm2 Peak Velocity(Antegrade Flow): 1.06 m/s Peak Gradient(Antegrade Flow): 4.53 mm[Hg] Mean Velocity(Antegrade Flow): 0.69 m/s Mean Gradient(Antegrade Flow): 2.23 mm[Hg] Velocity Time Integral: 20.15 cm Tricuspid Valve Peak Velocity (Regurgitant Flow): 3.18 m/s, 3.22 m/s, 3.37 m/s, 3.63 m/s Pulmonic Valve Mean Gradient: 2.31 mm[Hg] Mean Velocity: 0.70 m/s Peak Velocity: 1.13 m/s, 1.02 m/s Peak Gradient: 4.20 mm[Hg], 5.13 mm[Hg] Right Atrium Right Atrium Systolic Pressure: 95.88 ml, 95.88 ml Dictated by: Viet Salas M.D. on 12/25/2024 at 17:36 Approved by: Viet Salas M.D. on 12/25/2024 at 17:41
== END 2024-12-25 07:11 | disposition home or self-care (01) ==
LOC: CARD 07:11
PROVIDERS: PCP Family Medicine; Visit Provider Internal Medicine Interventional Cardiology
DX: Q21.10 Atrial septal defect, unspecified (principal); I50.32 Chronic diastolic (congestive) heart failure; I27.20 Pulmonary hypertension, unspecified; I36.1 Nonrheumatic tricuspid (valve) insufficiency
CPT/HCPCS: 93306

== ENCOUNTER 2025-01-18 13:24 | Outpatient (OUT) | payer BC, SELFPAY ==
[2025-01-18 14:06] LABS: Anion Gap 12.1; BUN Creatinine Ratio 21.4; Calcium 9.1 mg/dL (8.5-10.1); Carbon Dioxide 31.2 mmol/L (21.0-32.0); Chloride 99 mmol/L (98-107); Estimated GFR (African America >60 (>=60 mL/min/1.73m^2); Estimated GFR (Non-African Ame 52 (>=60 mL/min/1.73m^2); Glucose 105 mg/dL (74-106); Potassium 3.3 mmol/L (3.5-5.1); Sodium 139 mmol/L (136-145)
== END 2025-01-18 13:25 | disposition home or self-care (01) ==
PROVIDERS: PCP Family Medicine; Visit Provider Internal Medicine Interventional Cardiology
DX: I50.32 Chronic diastolic (congestive) heart failure (principal); I50.812 Chronic right heart failure; I27.20 Pulmonary hypertension, unspecified
CPT/HCPCS: 36415; 80048

== ENCOUNTER 2025-02-16 15:12 | Outpatient (OUT) | payer BC, SELFPAY ==
--- OUTSIDE RECORDS SUMMARY | 2025-02-16 15:25 | XMS_ITS | CCD ---
Author Organization [facility] Care Team Providers Care Supervisory Civil Engineer Name Role Phone TITUS VILLEGAS Referring Unavailable SELF, REFERRED Primary Care Unavailable MASPATO, TIMBO Attending Unavailable JIAN SYED Admitting Unavailable [facility] Procedure Practitioner Unavailab KRSY De La [place] Surgeon Unavailable [facility] Procedure Practitioner Unavailab le ILAN CABA Surgeon Unavailable [facility] Procedure Practitioner Unavailab rishabh BLACK, TIMBO Surgeon Unavailable [place] Procedure Practitioner Unavailab MAY De [place] Surgeon Unavailable SHIKHA DANIELSON MOSHRIK Attending Unavailable SHIKHA DANIELSON MOSHRIK Admitting Unavailable HEIDEOR, TIMBO Referring Unavailable [...] Care Unavailable KAI RUFFIN Attending Unavailable LALYKAI MOREJON Admitting Unavailable MOUKARBEL, DR LLANOS Consulting Unavailable [...] Unavailable WEST, DR MELIDA Owen Admitting Unavailable Christosy Titus ADKINS Primary Care Provider [phone] EVERETTE GOODWIN Attending Unavailable MOUKARBELVIET Admitting Unavailable MOUKARBELVIET Attending Unavailable MOUKARBELVIET Admitting Unavailable MOUKASEANELVIET Attending Unavailable MOUKAVIET JUNIOR Referring Unavailable MOUKAVIET JUNIOR Referring Unavailable MOUKARBELVIET Attending Unavailable MOUKARBEL, VIET Attending Unavailable MOUKARBEL, VIET Attending Unavailable MOUKARBEL, VIET Referring Unavailable Medications Current Medications Medication Drug Class(es) [...] Test Name Value Interpretation Reference Range Facility 36on 01-29-2025 36 MD Jayna Al MA Please have him reduce hydrochlorothiazide to half tablet once daily and get a repeat BMP in 2 weeks. Advised patient to reduce hydrochlorothiazide and have repeat blood work Normal [facility] Office Visiton 01-04-2025 Follow-up visit [id number] Adeel Crain 1965 M [facility] Provider Department Center 01/04/2025 VIET MARIA Family History Problem Relation Age of Onset Atrial fibrillation Mother Alzheimer's disease Mother Family Status - Relation Status Age at Mother Alive Father Level of Service:45663 [place] OFFICE/OUTPATIENT ESTABLISHED MOD MDM 30 MIN Normal [facility] Office Visiton 06-26-2024 Follow-up visit [id number] Adeel Crain 1965 M Date Provider Department Center 06/26/2024 VIET MARIA Family History Problem Relation Age of Onset Atrial fibrillation Mother Alzheimer's disease Mother Family Status - Relation Status Age at Mother Level of Service:64456 [place] OFFICE/OUTPATIENT ESTABLISHED MOD MDM 30 MIN Normal [facility] 30on 05-06-2024 30 Problem: Discharge Planning Goal: [...] goals for the shift include VSS Normal [facility] 30 The patient is Moderately Stable [...] symptoms of volume excess or deficit Normal [facility] BASIC METABOLIC PANELon 08-0 Anion gap [Moles/Vol] 13 mmol/L Normal - [facility] Comment on above: Performed By: #### L AB15 ####[facility] ([facility])[address] [place] [address] Calcium [Mass/Vol] 8.5 mg/dL Low 8.6-10.3 [facility] Comment on above: Performed By: #### L AB15 ####[facility] (BEAKER)[address] [place] [address] Chloride [Moles/Vol] 103 mmol/L Normal 98-107 [facility] Comment on above: Performed By: #### L AB15 ####[facility] [place] [address] CO2 [Moles/Vol] 25 mmol/L Normal 21-31 [facility] Comment on above: Performed By: #### L AB15 ####[facility] ([facility] [place] [address] Creatinine [Mass/Vol] 0.91 mg/dL Normal 0.70-1.30 [facility] Comment on above: Performed By: #### L AB15 ####[facility] ([facility])[address] [place] [address] GLOMERULAR FILTRATION RATE ML/MIN/1.73 SQ M.PREDICTED 96.5 mL/min/1.73m*2 Normal >60.0 [facility] Comment on above: Result Comment: The [facility]???s estimated glomerular filtration rate (eGFR) will [...] of individuals. Performed By: #### L AB15 ####[facility] ([facility] [place] [address] Glucose [Mass/Vol] 83 mg/dL Normal 70-100 [facility] Comment on above: Performed By: #### L AB15 ####[facility] ([facility] [place] [address] Potassium [Moles/Vol] 3.5 mmol/L Normal 3.5-5.1 [facility] Comment on above: Performed By: #### L AB15 ####[facility] ([facility])[address] [place] [address] Sodium [Moles/Vol] 137 mmol/L Normal 136-145 [facility] Comment on above: Performed By: #### L AB15 ####[facility] (BE[facility]ER)[address] [place] [address] Urea nitrogen [Mass/Vol] 14 mg/dL Normal 7-25 [facility] Comment on above: Performed By: #### L AB15 ####[facility] (BEAKER)[address] [place] [address] UREA NITROGEN/CREATININE (MASS RATIO) IN SER/PLAS 15.4 Normal [facility] Comment on above: Performed By: #### L AB15 ####[facility] (BEAKER)[address] [place] [address] CBCon 05-06-2024 Erythrocyte distribution width (RBC) [Ratio] 13.7 % Normal 11.5-15.0 [facility] Comment on above: Performed By: #### L [id number] ####[facility] (BEAKER)[address] [place] [address] ERYTHROCYTE MEAN CORPUSCULAR HEMOGLOBIN CONCENTRATION (G/DL) BY AUTOMATED 32.1 g/dL Normal 32.0-35.0 [facility] Comment on above: Performed By: #### L [id number] ####[facility] (BE[facility]ER)[address] [place] [address] Hematocrit (Bld) [Volume fraction] 43.0 % Normal 39.0-55.0 [facility] Comment on above: Performed By: #### L [id number] ####[facility] (BEAKER)[address] [place] [address] Hemoglobin (Bld) [Mass/Vol] 13.8 g/dL Normal 13.0-17.0 [facility] Comment on above: Performed By: #### L [id number] ####[facility] ([facility]ER)[address] [facility] [place] [address] MCH (RBC) [Entitic mass] 29.9 pg Normal 27.0-33.0 [facility] Comment on above: Performed By: #### L [id number] ####[facility] ([facility])[address] [place] [address] MCV (RBC) [Entitic vol] 93.3 fL Normal 82.0-98.0 [facility] Comment on above: Performed By: #### L [id number] ####[facility] ([facility])[address] [place] [address] PLATELETS (10*3/UL) IN BLOOD AUTOMATED COUNT 204 10*3/uL Normal 150-400 [facility] Comment on above: Performed By: #### L [id number] ####[facility] ([facility])[address] [facility] [place] [address] RBC (Bld) [#/Vol] 4.61 10*6/uL Normal 4.20-5.70 [facility] Comment on above: Performed By: #### L [id number] ####[facility] ([facility])[address] [facility] [place] [address] WBC (Bld) [#/Vol] 10.27 10*3/uL Normal 4.00-10.60 [facility] Comment on above: Performed By: #### L [id number] ####[facility] ([facility])[address] [facility] [place] [address] DSon 05-06-2024 DS Admission Admitted 05/05/2024 for [...] output and cardiac index. Presence of significant [id number] shunt at the atrial septal level [The [...] Potassium 3.5 Chlori (more content not included)... Normal [facility] NURSNOTEon 05-06-2024 NURSNOTE Discharge paperwork gone over and explained to pt and family member at this time. All questions answered at bedside. Pt and family denies further questions. Pt discharged. [facility] 30on 05-05-2024 30 Problem: Discharge Planning Goal: Discharge to home or other facility with appropriate resources Outcome: Progressing Flowsheets (Taken 05/05/2024 2100) Discharge to home or other facility with [...] for the shift include stable hemodynamics Normal [facility] HPon 05-05-2024 History Of Present Illness [...] evidence of right-sided volume overload due to [id number] shunting despite optimization of medical therapy. Past [...] The patie (more content not included)... Normal [facility] NURSNOTEon 05-05-2024 NURSNOTE Report given to Caroline gonzalez RN from [facility] Any medications or safety alerts were reviewed. Any pending diagnostics and notifications were also reviewed, as well as any safety concerns or issues, abnormal labs, abnormal imagining, and abnormal assessment findings. Questions were answered. Normal [facility] NURSNOTE Dr. Lee notified of ACT being 231. Dr. Lee verbally ordered transfer to ICU and is contacting Dr. Salas to notify him of elevated ACT, and to discuss further action. Normal [facility] NURSNOTE CHG wipes and betadi ne nasal swabs completed. Normal [facility] NURSNOTE This report has been cancelled. Normal [facility] POCT ACTIVATED CLOTTING TIME UNSOLICITED RESULTSon 05-05-2024 POC ACTIVATED CLOTTING TIME 154 sec High 82-152 [facility] Comment on above: Performed By: #### L [id number] ####[facility] ([facility]ER)[address] [place] [address] Letter (Out)on 04-14-2024 Letter (Out) [id number] Adeel Crain 1965 [facility] Provider Department Center 04/14/2024 None-None [facility] Family History Problem Relation Age of Onset Atrial fibrillation Mother Alzheimer's disease Mother Family Status - Relation Status Age at Mother [facility] Letter (Out)on 04-10-2024 Letter (Out) [id number] Adeel Crain 1965 [facility] Provider Department Center 04/10/2024 None-None [facility] Family History Problem Relation Age of Onset Atrial fibrillation Mother Alzheimer's disease Mother Family Status - Relation Status Age at Mother [facility] Letter (Out)on 04-08-2024 Letter (Out) [id number] Adeel Crain 1965 M Date Provider Department Center 04/08/2024 None-None [facility] Family History Problem Relation Age of Onset Atrial fibrillation Mother Alzheimer's disease Mother Family Status - Relation Status Age at Mother Normal [facility] Office Visiton 03-26-2024 Follow-up visit [id number] Adeel Crain 1965 M Date Provider Department Center 03/26/2024 VIET MARIA [facility] Family History Problem Relation Age of Onset Atrial fibrillation Mother Alzheimer's disease Mother Family Status - Relation Status Age at Mother Level of Service:07622 [place] OFFICE/OUTPATIENT ESTABLISHED HIGH MDM 40 MIN [facility] HPon 02-28-2024 H&P reviewed. The patient was examined and there are no changes to the H&P. [facility] Cardiology [facility] I have seen and [...] When compared with ECG of 21-MAR-2019 20:42, VA interval has decreased, Vent. rate has increased [...] posterior mitral (more content not included)... Normal [facility] NURSNOTEon 02-28-2024 NURSNOTE RN educated pt on d/ c instructions. RN encouraged pt to voice any questions or concerns. Pt verbalizes no questions or concerns at this time. Pt was wheeled off of unit with all of belongings. Normal [facility] NURSNOTE Bedside swallow stud y completed and passed. [facility] ECHOCARDIO M/2D COMPLETEon 0 02-05-2023 ECHOCARDIO M/2D COMPLETE Patient: TRACIE CRAIN Exam Date: 02/05/2023 : 1965 Gender:M Ordering : DR VIET SALAS M.D. Admission #: [id number] Family : Order #: [id number] CLICK HERE TO VIEW EXAM ECHOCARDIOGRAM REPORT [...] Jenkins M.D. on 02/05/2023 at 16:31 Normal [facility] BNPon 12-19-2022 Natriuretic peptide B (Bld) [Mass/Vol] 859.0 pg/mL Normal <=900.0 [facility] Comment on above: Performed By: #### B MP, BNP #### [facility] [address] [place] [address] Dr. Leonie Beckham PROF CHEM 8 (BAS METB)on Anion gap [Moles/Vol] 9.9 mmol/L Normal [facility] Comment on above: Performed By: #### B MP, BNP #### [facility] [address] [place] [address] Dr. Leonie Beckham Calcium [Mass/Vol] 9.4 mg/dL Normal 8.5-10.1 [facility] Comment on above: Performed By: #### B MP, BNP #### [facility] [address] [place] [address] Dr. Leonie Beckham Chloride [Moles/Vol] 102 mmol/L Normal 98-107 [facility] Comment on above: Performed By: #### B MP, BNP #### [facility] [address] [address] [address] Leonie Beckham CO2 [Moles/Vol] 32.0 mmol/L Normal 21.0-32.[address] [facility] Comment on above: Performed By: #### B MP, BNP #### [facility] [address] [place] [address] Dr. Leonie Beckham Creatinine [Mass/Vol] 1.17 mg/dL Normal 0.70-1.30 [facility] Comment on above: Performed By: #### B MP, BNP #### [facility] [address] [place] [address] Dr. Leonie Beckham EGFR-AF SLOVAK >60 Normal >=[address] [facility] Comment on above: Performed By: #### B MP, BNP #### [facility] [address] [place] [address] Dr. Leonie Beckham EGFR-NON AF SLOVAK >60 Normal >=60 [facility] Comment on above: Performed By: #### B MP, BNP #### [facility] [address] [place] [address] Dr. Leonie Beckham Glucose [Mass/Vol] 106 mg/dL Normal 74-106 [facility] Comment on above: Performed By: #### B MP, BNP #### [facility] [address] [place] [address] Dr. Leonie Beckham Potassium [Moles/Vol] 3.9 mmol/L Normal 3.5-5.1 [facility] Comment on above: Performed By: #### B MP, BNP #### [facility] [address] [place] [address] Dr. Leonie Beckham Sodium [Moles/Vol] 140 mmol/L Normal 136-145 [facility] Comment on above: Performed By: #### B MP, BNP #### [facility] [address] [place] [address] Dr. Leonie Beckham Urea nitrogen [Mass/Vol] 25.0 mg/dL Critically high 7.0-18.0 [facility] Comment on above: Performed By: #### B MP, BNP #### [facility] [address] [place], [place] [address] Dr. Leonie Beckham Urea nitrogen/Creatinine [Mass ratio] 21.4 mg/mg Normal [facility] Comment on above: Performed By: #### B MP, BNP #### [facility] [address] [place], [place] [address] Dr. Leonie Beckham ECHOCARDIO M/2D COMPLETEon 0 11-09-2022 ECHOCARDIO M/2D COMPLETE Patient: TRACIE CRAIN Exam Date: 11/09/2022 : 1965 Gender:M Ordering : DR VIET SALAS M.D. Admission #: [id number] Family : DR TITUS VILLEGAS . Order #: [id number] CLICK HERE TO VIEW EXAM ECHOCARDIOGRAM REPORT [...] M.D. on 11/09/2022 at 16:31 Normal [facility] PROF CHEM 8 (BAS METB)on Anion gap [Moles/Vol] 8.0 mmol/L Normal [facility] Comment on above: Performed By: #### B MP #### [facility] [address] [address] [address] Leonie Beckham Calcium [Mass/Vol] 8.6 mg/dL Normal 8.5-10.1 [facility] Comment on above: Performed By: #### B MP #### [facility] [address] [address] [address] Leonie Beckham Chloride [Moles/Vol] 102 mmol/L Normal 98-107 [facility] Comment on above: Performed By: #### B MP #### [facility] [address] [address] [address] Leonie Beckham CO2 [Moles/Vol] 31.5 mmol/L Normal 21.0-32.0 [facility] Comment on above: Performed By: #### B MP #### [facility] [address] [place] [address] Dr. Leonei Beckham Creatinine [Mass/Vol] 1.13 mg/dL Normal 0.70-1.30 [facility] Comment on above: Performed By: #### B MP #### [facility] [address] [address] [address] Leonie Beckham EGFR-AF SLOVAK >60 Normal >=60 [facility] Comment on above: Performed By: #### B MP #### [facility] [address] [place] [address] Dr. Leonie Beckham EGFR-NON AF SLOVAK >60 Normal >=60 [facility] Comment on above: Performed By: #### B MP #### [facility] [address] [address] [address] Leonie Beckham Glucose [Mass/Vol] 100 mg/dL Normal 74-106 [facility] Comment on above: Performed By: #### B MP #### [facility] [address] [address] [address] Leonie Beckham Potassium [Moles/Vol] 3.5 mmol/L Normal 3.5-5.1 [facility] Comment on above: Performed By: #### B MP #### [facility] [address] [address] [address] Leonie Beckham Sodium [Moles/Vol] 138 mmol/L Normal 136-145 [facility] Comment on above: Performed By: #### B MP #### [facility] [address] [address] [address] Leonie Beckham Urea nitrogen [Mass/Vol] 24.0 mg/dL Critically high 7.0-18.0 [facility] Comment on above: Performed By: #### B MP #### [facility] [address] [address] [address] Leonie Beckham Urea nitrogen/Creatinine [Mass ratio] 21.2 mg/mg Normal [facility] Comment on above: Performed By: #### B MP #### [facility] [address] [address] [address] Leonie Beckham ECHOCARDIO M/2D COMPLETEon 0 06-27-2022 ECHOCARDIO M/2D COMPLETE Patient: TRACIE CRAIN Exam Date: 06/27/2022 : 1965 Gender:M Ordering : KAI RUFFIN [facility] Admission #: [id number] Family : DR TITUS VILLEGAS . Order #: [id number] CLICK HERE TO VIEW EXAM ECHOCARDIOGRAM REPORT [...] Viet Salas M.D. on 06/27/2022 at 18:23 [facility] VC CONSULT FOLLOWUPon 2021 VC CONSULT FOLLOWUP Patient: TRACIE CRAIN Exam Date: 06/13/2022 : 1965 Gender:M Ordering : DR MELIDA CUELLAR M.D. Admission #: [id number] Family : Order #: [id number] CLICK HERE TO VIEW EXAM RADIOLOGY REPORT [...] Cuellar MD on 06/13/2022 at 14:59 Normal [facility] VC EXT VENOUS RT LIMITEDon 0 06-13-2022 VC EXT VENOUS RT LIMITED Patient: TRACIE CRAIN Exam Date: 06/13/2022 : 1965 Gender:M Ordering : DR MELIDA CUELLAR M.D. Admission #: [id number] Family : Order #: [id number] CLICK HERE TO VIEW EXAM RADIOLOGY REPORT [...] veins in the medial right leg. Associated research quality assurance specialist distal medial also thrombosed 3.1 mm from [...] Cuellar MD on 06/13/2022 at 15:42 Normal [facility] VC INJ FOAM SCLERO W US MLTI on 06-07-2022 VC INJ FOAM SCLERO W US MLTI Patient: TRACIE CRAIN Exam Date: 06/07/2022 : 1965 Gender:M Ordering : DR MELIDA CUELLAR M.D. Admission #: [id number] Family : Order #: [id number] CLICK HERE TO VIEW EXAM RADIOLOGY REPORT [...] content not included)... Normal [facility] VC CONSULT FOLLOWUPon 2021 VC CONSULT FOLLOWUP Patient: TRACIE CRAIN Exam Date: 06/01/2022 : 1965 Gender:M Ordering : DR MELIDA CUELLAR M.D. Admission #: [id number] Family : Order #: [id number] CLICK HERE TO VIEW EXAM RADIOLOGY REPORT [...] Cuellar MD on 06/01/2022 at 09:48 Normal [facility] VC EXT VENOUS LT LIMITEDon 0 06-01-2022 VC EXT VENOUS LT LIMITED Patient: TRACIE CRAIN Exam Date: 06/01/2022 : 1965 Gender:M Ordering : DR MELIDA CUELLAR M.D. Admission #: [id number] Family : Order #: [id number] CLICK HERE TO VIEW EXAM RADIOLOGY REPORT [...] Cuellar MD on 06/01/2022 at 09:29 Normal [facility] VC INJ FOAM SCLERO W US MLTI on 05-25-2022 VC INJ FOAM SCLERO W US MLTI Patient: TRACIE CRAIN Exam Date: 05/25/2022 : 1965 Gender:M Ordering : DR MELIDA CUELLAR M.D. Admission #: [id number] Family : Order #: [id number] CLICK HERE TO VIEW EXAM RADIOLOGY REPORT [...] Aguilar M.D. on 05/25/2022 at 11:44 Normal [facility] VC CONSULT FOLLOWUPon 2021 VC CONSULT FOLLOWUP Patient: TRACIE CRAIN Exam Date: 05/14/2022 : 1965 Gender:M Ordering : DR MELIDA CUELLAR M.D. Admission #: [id number] Family : Order #: [id number] CLICK HERE TO VIEW EXAM RADIOLOGY REPORT [...] Lynda Aguilar M.D. on 05/14/2022 at 09:41 [facility] VC EXT VENOUS RT LIMITEDon 0 05-14-2022 VC EXT VENOUS RT LIMITED Patient: TRACIE CRAIN Exam Date: 05/14/2022 : 1965 Gender:M Ordering : DR MELIDA CUELLAR M.D. Admission #: [id number] Family : Order #: [id number] CLICK HERE TO VIEW EXAM RADIOLOGY REPORT [...] Aguilar M.D. on 05/14/2022 at 09:35 Normal [facility] VC ENDOVENOUS ABL PERFORATIN G RTon 05-10-2022 VC ENDOVENOUS ABL PERFORATING RT Patient: TRACIE CRAIN Exam Date: 05/10/2022 : 1965 Gender:M Ordering : DR MELIDA CUELLAR M.D. Admission #: [id number] Family : Order #: [id number] CLICK HERE TO VIEW EXAM RADIOLOGY REPORT PROCEDURE: [facility] ENDOVENOUS ABLATION FOR VEIN RIGHT GREAT SAPHENOUS VEIN COMPARISON: None. INDICATIONS: Pain co-occurrent and due to varicose veins of bilateral legs I83.813 OPERATIVE REPORT: Diagnosis: Superficial venous reflux, incompetent perforating veins Procedure: Endovenous laser ablation of the left research quality assurance specialist(s) Procedure: The patient was positioned supine on [...] Cuellar MD on 05/10/2022 at 10:50 Normal [facility] VC CONSULT FOLLOWUPon 2021 VC CONSULT FOLLOWUP Patient: TRACIE CRAIN Exam Date: 05/04/2022 : 1965 Gender:M Ordering : DR MELIDA CUELLAR M.D. Admission #: [id number] Family : Order #: [id number] CLICK HERE TO VIEW EXAM RADIOLOGY REPORT [...] Aguilar M.D. on 05/04/2022 at 08:38 Normal [facility] VC EXT VENOUS LT LIMITEDon 0 05-04-2022 VC EXT VENOUS LT LIMITED Patient: LOUANNTRACIE BOJORQUEZ Exam Date: 05/04/2022 : 1965 Gender:M Ordering : DR MELIDA CUELLAR M.D. Admission #: [id number] Family : Order #: [id number] CLICK HERE TO VIEW EXAM RADIOLOGY REPORT [...] Aguilar M.D. on 05/04/2022 at 08:32 Normal [facility] VC ENDOVENOUS ABL 1ST V LTon 04-27-2022 VC ENDOVENOUS ABL 1ST V LT Patient: TRACIE CRAIN Exam Date: 04/27/2022 : 1965 Gender:M Ordering : DR MELIDA CUELLAR M.D. Admission #: [id number] Family : Order #: [id number] CLICK HERE TO VIEW EXAM RADIOLOGY REPORT [...] time 9:05 a.m. to 9:36 a.m. for April 27, 2022. Laser time 9:12 a.m. To 9:38 a.m. for April 27, 2022. A duplex ultrasound revealed [...] 04/27/2022 at 10:32 Normal [facility] CBC AUTO DIFFon 04-05-2022 BASO # 0.1 103/ul Normal 0.0-0.1 [facility] Comment on above: Performed By: #### C BC ####[facility] [id number] [address]Dr. Leonie Beckham Basophils/100 WBC (Bld) 1.2 % Normal 0.2-2.0 [facility] Comment on above: Performed By: #### C BC ####[facility] [id number] [place], [place] [address]DrGabino Beckham EO # 0.3 103/ul Normal 0.0-0.7 [facility] Comment on above: Performed By: #### C BC ####[facility] [id number] [address]DrGabino Beckham Eosinophils/100 WBC (Bld) 3.9 % Normal 0.9-7.0 [facility] Comment on above: Performed By: #### C BC ####[facility] [id number] [place], [place] [address]DrGabino Beckham Erythrocyte distribution width (RBC) [Ratio] 13.2 % Normal 11.0-15.0 [facility] Comment on above: Performed By: #### C BC ####[facility] [address] [place], [place] [address]DrGabino Beckham Hematocrit (Bld) [Volume fraction] 43.5 % Normal 42.0-54.0 [facility] Comment on above: Performed By: #### C BC ####[facility] L[address]os[address] [place] [address]DrGabino Beckham Hemoglobin (Bld) [Mass/Vol] 13.9 g/dL Critically low 14.0-18.0 [facility] Comment on above: Performed By: #### C BC ####[facility] Ujlejeleld[address] [place] [address]DrGabino Beckham IG # 0.03 10e3/ul Normal 0.00-0.03 [facility] Comment on above: Performed By: #### C BC ####[facility] [address]udp[address] [place], [place] [address]DrGabino Beckham IG % 0.4 % Normal 0.0-0.5 [facility] Comment on above: Performed By: #### C BC ####[facility] Fremj[address]hu[address] [place], [place] [address]DrGabino Beckham LYMPH # 2.0 103/ul Normal 1.2-3.8 [facility] Comment on above: Performed By: #### C BC ####[facility] Lduwllzgni[address] [place], [place] [address]DrGabino Beckham Lymphocytes/100 WBC (Bld) 25.0 % Normal 20.5-60.0 [facility] Comment on above: Performed By: #### C BC ####[facility] Jvclfzvndv6[address] [place] [address]DrGabino Beckham MANUAL DIFF REQ NO Normal [facility] Comment on above: Performed By: #### C BC ####[facility] [address]eytlkejye[address] [place] [id number] Beckham MCH (RBC) [Entitic mass] 30.2 pg Normal 25.9-34.0 [facility] Comment on above: Performed By: #### C BC ####[facility] K[address]vhrqeqbn[address] [place] [address]DrGabino Beckham MCHC (RBC) [Mass/Vol] 32.0 g/dL Normal 29.9-35.2 [facility] Comment on above: Performed By: #### C BC ####[facility] Oyieatnpeg[address] [place] [address]DrGabino Beckham MCV (RBC) [Entitic vol] 94.4 fL Critically high 80.0-94.0 [facility] Comment on above: Performed By: #### C BC ####[facility] Vytlitjhoh[address] [place] [address]DrGabino Beckham MONO # 1.0 103/ul Critically high 0.3-0.8 [facility] Comment on above: Performed By: #### C BC ####[facility] Ituwpofcvz[address] [place] [address]DrGabino Beckham Monocytes/100 WBC (Bld) 12.0 % Normal 1.7-12.0 [facility] Comment on above: Performed By: #### C BC ####[facility] Qbv[address]fuj[address] [place], [place] [address]DrGabino Beckham NEUT # 4.6 103/ul Normal 1.4-6.5 The [facility] Comment on above: Performed By: #### C BC ####[facility] Qus[address]embbr[address] [place], [place] [address]DrGabino Beckham Neutrophils/100 WBC (Bld) 57.5 % Normal 43.0-75.0 [facility] Comment on above: Performed By: #### C BC ####[facility] Ogfm[address]im[address] [place], [place] [address]DrGabino Beckham Platelet mean volume (Bld) [Entitic vol] 9.4 fL Critically low 9.5-13.5 The [facility] Comment on above: Performed By: #### C BC ####[facility] [address]lgb[address]lq[address] [place], [place] [address]DrGabino Beckham PLT 203 103/ul Normal 150-450 The [facility] Comment on above: Performed By: #### C BC ####[facility] Zxxir[address]wql[address] [place] [phone] Beckham RBC 4.61 106/ul Critically low 4.70-6.10 [facility] Comment on above: Performed By: #### C BC ####[facility] Hhbddnxbyg[address] [place] [address]Dr. Leonie Beckham WBC 8.0 103/ul Normal 4.0-11.0 [facility] Comment on above: Performed By: #### C BC ####[facility] Kmtvcmdqcm[address] [place] [id number]. Leonie Beckham FREE T3on 04-05-2022 FREE T3 2.54 pg/mlL Normal 2.18-3.98 [facility] Comment on above: Performed By: #### T SH, LIPID, CMP, T4, FT3 ####[facility] [address]ed[address] [place] [address]Dr. Leonie Beckham GLYCOHEMOGLOBIN A1Con 2021 ADA RECOMMENDATION SEE BELOW Normal [facility] Comment on above: Result Comment: ADA RECOMMENDED LIMIT 4.0 - 6.0 ADA THERAPEUTIC TARGET < 7.0 ACTION SUGGESTED > 7.0 Performed By: #### A 1C ####[facility] Bw[address]kwjrfw[address] [place] [address]Dr. Leonie Beckham Glucose [Mass/Vol] 126 mg/dL Normal [facility] Comment on above: Performed By: #### A 1C ####[facility] Oebvabwlnb[address] [place] [address]Dr. Leonie Beckham HbA1c (Bld) [Mass fraction] 6.0 % Normal 4.5-6.2 [facility] Comment on above: Performed By: #### A 1C ####[facility] Zxvzfuuaeu[address] [place] [address]Dr. Leonie Beckham LIPID PROFILEon 04-05-2022 CHOL-HDL RATIO NORM SEE BELOW Normal [facility] Comment on above: Result Comment: 3.3 - 4.4 LOW RISK 4.4 - 7.1 AVERAGE RISK 7.1 - 11.0 MODERATE RISK >11.0 HIGH RISK Performed By: #### T SH, LIPID, CMP, T4, FT3 ####[facility] Eyznxoqsan[address] [place] [address]Dr. Leonie Beckham Cholesterol [Mass/Vol] 137 mg/dL Normal <=200 The [facility] Comment on above: Performed By: #### T SH, LIPID, CMP, T4, FT3 ####[facility] Ke[address]luh[address] [place] [address]Dr. Leonie Beckham Cholesterol in HDL [Mass/Vol] 40 mg/dL Normal 40-60 The [facility] Comment on above: Performed By: #### T SH, LIPID, CMP, T4, FT3 ####[facility] Kib[address]iphad[address] [place] [address]Dr. Leonie Beckham Cholesterol in LDL [Mass/Vol] 84.0 mg/dL Normal The [facility] Comment on above: Performed By: #### T SH, LIPID, CMP, T4, FT3 ####[facility] [address]sdsiwls[address] [place] [address]Dr. Leonie Beckham Cholesterol.total/Ch olesterol in HDL [Mass ratio] 3.4 {ratio} Normal The [facility] Comment on above: Performed By: #### T SH, LIPID, CMP, T4, FT3 ####[facility] Zimtstxfxk[address] [place] [address]Dr. Leonie Beckham HDL NORMAL > or = 60 mg/dl - LO W CARDIOVASCULAR RISK <40 mg/dl - HIGH CARDIOVASCULAR RISK Normal The [facility] Comment on above: Performed By: #### T SH, LIPID, CMP, T4, FT3 ####[facility] Fdxgeaxwnq[address] [place] [address]Dr. Leonie Beckham LDL CALC NORMAL SEE BELOW Normal [facility] Comment on above: Result Comment: <100 mg/dl OPTIMAL 100 - 129 mg/dl NEAR OR ABOVE OPTIMAL 130 - 159 mg/dl BORDERLINE HIGH 160 - 189 mg/dl HIGH >190 mg/dl VERY HIGH Performed By: #### T SH, LIPID, CMP, T4, FT3 ####[facility] Uhfrqoghzz[address] [place] [address]Dr. Kaleighlan Beckham Triglyceride [Mass/Vol] 65 mg/dL Normal <=150 The [facility] Comment on above: Performed By: #### T SH, LIPID, CMP, T4, FT3 ####[facility] Xzxkeqxpik[address] [place] [address]Dr. Leonie Beckham VLDL CALC 13.0 mg/dL Normal [facility] Comment on above: Performed By: #### T SH, LIPID, CMP, T4, FT3 ####[facility] Amksxhrslg[address] [place] [address]Dr. Leonie Beckham PROF 14(COMP METB)on 022 Albumin [Mass/Vol] 3.8 g/dL Normal 3.4-5.0 [facility] Comment on above: Performed By: #### T SH, LIPID, CMP, T4, FT3 ####[facility] Oavymgtfaa[address] [place] [address]Dr. Leonie Beckham Albumin/Globulin [Mass ratio] 1.2 {ratio} Normal [facility] Comment on above: Performed By: #### T SH, LIPID, CMP, T4, FT3 ####[facility] Bvgzzfskoj[address] [place] [address]Dr. Leonie Beckham ALP [Catalytic activity/Vol] 81 U/L Normal 46-116 [facility] Comment on above: Performed By: #### T SH, LIPID, CMP, T4, FT3 ####[facility] Cwlx[address]kwlhl[address] [place] [address]Dr. Leonie Beckham ALT [Catalytic activity/Vol] 35 U/L Normal 16-63 [facility] Comment on above: Performed By: #### T SH, LIPID, CMP, T4, FT3 ####[facility] Aycbqzenrz[address] [place] [address]Dr. Leonie Beckham Anion gap [Moles/Vol] 10.8 mmol/L Normal [facility] Comment on above: Performed By: #### T SH, LIPID, CMP, T4, FT3 ####[facility] Gux[address]vxmiay[address] [place] [address]Dr. Leonie Beckham AST [Catalytic activity/Vol] 22 U/L Normal 15-37 [facility] Comment on above: Performed By: #### T SH, LIPID, CMP, T4, FT3 ####[facility] Evnkapajra[address] [place] [address]Dr. Leonie Beckham Bilirubin [Mass/Vol] 1.1 mg/dL Critically high 0.2-1.0 [facility] Comment on above: Performed By: #### T SH, LIPID, CMP, T4, FT3 ####[facility] Ngvfdbjneh45[address] [place] [address]Dr. Leonie Beckham Calcium [Mass/Vol] 8.6 mg/dL Normal 8.5-10.1 [facility] Comment on above: Performed By: #### T SH, LIPID, CMP, T4, FT3 ####[facility] Kcotbhgnub[address] [place] [address]Dr. Leonie Beckham Chloride [Moles/Vol] 105 mmol/L Normal 98-107 [facility] Comment on above: Performed By: #### T SH, LIPID, CMP, T4, FT3 ####[facility] [address] [place], [place] [address]Dr. Leonie Beckham CO2 [Moles/Vol] 28.2 mmol/L Normal 21.0-32.0 [facility] Comment on above: Performed By: #### T SH, LIPID, CMP, T4, FT3 ####[facility] J[address]ig[address]kmj[address] [place], [place] [address]Dr. Leonie Beckham Creatinine [Mass/Vol] 1.33 mg/dL Critically high 0.70-1.30 [facility] Comment on above: Performed By: #### T SH, LIPID, CMP, T4, FT3 ####[facility] Tkhwqzohln[address] [place], [place] [address]Dr. Leonie Beckham EGFR-AF SLOVAK >60 Normal >=60 [facility] Comment on above: Performed By: #### T SH, LIPID, CMP, T4, FT3 ####[facility] [address]qbyihbe[address] [place], [place] [address]Dr. Leonie Beckham EGFR-NON AF SLOVAK 55 mL/min/1.73m2 Critically low >=60 The [facility] Comment on above: Performed By: #### T SH, LIPID, CMP, T4, FT3 ####[facility] Hgabghcuso[address] [place] [address]Dr. Leonie Beckham Globulin (S) [Mass/Vol] 3.3 g/dL Normal [facility] Comment on above: Performed By: #### T SH, LIPID, CMP, T4, FT3 ####[facility] Ukqrlmudii[address] [place] [address]Dr. Leonie Beckham Glucose [Mass/Vol] 94 mg/dL Normal 74-106 [facility] Comment on above: Performed By: #### T SH, LIPID, CMP, T4, FT3 ####[facility] Yntnvtnhzw[address] [place] [address]Dr. Leonie Beckham Potassium [Moles/Vol] 4.0 mmol/L Normal 3.5-5.1 [facility] Comment on above: Performed By: #### T SH, LIPID, CMP, T4, FT3 ####[facility] Wekvnpxtxk[address] [place], [place] [address]Dr. Leonie Beckham Protein [Mass/Vol] 7.1 g/dL Normal 6.4-8.2 [facility] Comment on above: Performed By: #### T SH, LIPID, CMP, T4, FT3 ####[facility] Islbhgmhxy[address] [place] [address]Dr. Leonie Beckham Sodium [Moles/Vol] 140 mmol/L Normal 136-145 [facility] Comment on above: Performed By: #### T SH, LIPID, CMP, T4, FT3 ####[facility] U[address]lplnx[address] [place] [address]Dr. Leonie Beckham Urea nitrogen [Mass/Vol] 24.0 mg/dL Critically high 7.0-18.0 [facility] Comment on above: Performed By: #### T SH, LIPID, CMP, T4, FT3 ####[facility] [address]rbof[address] [place], [place] [address]Dr. Leonie Beckham Urea nitrogen/Creatinine [Mass ratio] 18.0 mg/mg Normal [facility] Comment on above: Performed By: #### T SH, LIPID, CMP, T4, FT3 ####[facility] [address] [place], [place] [address]Lp. Leonie Beckham T4on 04-05-2022 T4 [Mass/Vol] 7.70 ug/dL Normal 4.50-12.10 [facility] Comment on above: Performed By: #### T SH, LIPID, CMP, T4, FT3 ####[facility] [address] [place], [place] [address]Dq. Leonie Beckham TSHon 04-05-2022 TSH 3.042 uIU/mL Normal 0.358-3.740 [facility] Comment on above: Performed By: #### T SH, LIPID, CMP, T4, FT3 ####[facility] [address] [place], [place] [address]Kp. Leonie Beckham VC COMP CONSULTATIONon 03-08 VC COMP CONSULTATION Patient: TRACIE CRAIN Exam Date: 03/08/2022 : 1965 Gender:M Ordering : DR TITUS VILLEGAS . 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 The [...] a (more content not included)... Normal [facility] Ambulatory Clinical Summaryo n 12-20-2020 Ambulatory Clinical Summary {[id number]}CD:[id number] Normal [facility] Coding Summary.on 12-20-2020 Coding Summary. CODING DATE: FINAL [facility] STATUS: Home (Routine DC) PAYOR: [...] Choi CphT Date Saved: 12/19/2020 11:58 pm [facility] General Surgery Office/Clini c Noteon 12-20-2020 [...] Tracie Diaz if needed [address] [place] [address]- Additional Instructions: Problem List/Past Medical [...] inactivated - Not Given Patient Refuses Normal [facility] Comment on above: Result Comment: Elec tronically Signed By: BONG ADKINS, Tracie Sarah\Date and Time Signed: 12/20/20 15:58 EDT Ambulatory Clinical Summaryo n 12-09-2020 Ambulatory Clinical Summary {[id number]}CD:[id number] Normal [facility] General Surgery Office/Clini c Noteon 12-09-2020 [...] inactivated - Not Given Patient Refuses Normal [facility] Comment on above: Result Comment: Elec tronically Signed By: BONG ADKINS, Tracie R\.br\Date and Time Signed: 12/09/20 09:30 EST Provider Letter FTon 11-30 Provider Letter [facility] (Inserted Image. Un able to display) Titus Villegas, [address] [place] [address] Re: TRACIE CRAIN Date of : 1965 Thank you for your referral of Tracie Crain who was seen on consultation on November 29, 2020, for growth on left lower back that is changing. An excisional biopsy is planned. I have enclosed my consultation notes for your review. I will be happy to follow Tracie. Sincerely, Tracie Woody MD General Surgery Normal [facility] Ambulatory Clinical Summaryo n 11-29-2020 Ambulatory Clinical Summary {[id number]}CD:[id number] Normal [facility] Physician Referralon 021 Physician Referral [id number] D:127 Normal [facility] Operative Reporton 9 Operative Report MR#: [id number] S [facility] Pt. Name: Tracie Crain Room #: [...] The patient [place] and transesophageal echocardiogram was performed under conscious [...] for the entire procedure. Date Dict: 05/12/2019/10:14 Jhaon/James Reyna MD Date Trans: 05/12/2019 01:23 P/tylero [id number] cc: Ttius Villegas M.D. [address] [id number] Timbo Black MD [address] [facility]. [facility] [address] Normal [facility] BASIC METABOLIC PANELon 07-0 Calcium [Mass/Vol] 9.4 mg/dL Normal 8.6-10.3 [facility] Comment on above: Performed By: #### 0 0121, 11922, 22763, 71795, 81625 #### [facility] [address] [facility] [place] [place] [address], [facility] Chloride [Moles/Vol] 99 mmol/L Normal 98-107 [facility] Comment on above: Performed By: #### 0 0121, 10987, 88956, 01862, 74007 #### [facility] [address] [facility] [place] [address], [facility] CO2 [Moles/Vol] 31 mmol/L Normal 21-31 [facility] Comment on above: Performed By: #### 0 0121, 22752, 21658, 55313, 38729 #### [facility] [address] [place] [address], [place] Creatinine [Mass/Vol] 1.22 mg/dL Normal 0.70-1.30 [facility] Comment on above: Performed By: #### 0 0121, 96656, 51337, 09116, 23022 #### [facility] [address] [place] [address], [place] GFR/1.73 sq M predicted among blacks MDRD (S/P/Bld) [Vol rate/Area] mL/min/{1.73_m2} Normal >60 [facility] Comment on above: Performed By: #### 0 0121, 05926, 51643, 74914, 22294 #### [facility] [address] [place] [address], [place] GFR/1.73 sq M predicted among non-blacks MDRD (S/P/Bld) [Vol rate/Area] mL/min/{1.73_m2} Normal >60 [facility] Comment on above: Performed By: #### 0 0121, 39788, 25468, 02945, 10519 #### [facility] [address] [place] [address], [place] Glucose [Mass/Vol] 126 mg/dL High 70-100 [facility] Comment on above: Performed By: #### 0 0121, 85658, 47931, 10461, 29850 #### [facility] [address] [place] [address], [place] Potassium [Moles/Vol] 3.8 mmol/L Normal 3.5-5.1 [facility] Comment on above: Performed By: #### 0 0121, 17239, 75056, 94314, 09387 #### [facility] [address] [place] [address], [place] Sodium [Moles/Vol] 139 mmol/L Normal 136-145 [facility] Comment on above: Performed By: #### 0 0121, 85819, 48567, 21124, 14984 #### [facility] [address] Urea nitrogen [Mass/Vol] 15 mg/dL Normal 7-25 [facility] Comment on above: Performed By: #### 0 0121, 61824, 76075, 14891, 49620 #### [facility] [address] BNP (B-TYPE NATRIURETIC PEPT PACHECO)on 04-07-2019 Natriuretic peptide B (Bld) [Mass/Vol] 502 pg/mL High 0-100 [facility] Comment on above: Result Comment: Give n the appropriate clinical setting a BNP result of >100 pg/mL indicates congestive heart failure. Performed By: #### 0 0121, 03540, 99806, 22698, 12168 #### [facility] [address] CBC W/DIFFon 04-07-2019 ABS BASOPHILS 0.1 10*3/uL Normal 0.0-0.2 [facility] Comment on above: Performed By: #### 0 0121, 74804, 12663, 70286, 20435 #### [facility] [address] ABS IMM GRANS 0.0 10*3/uL Normal 0.0-0.2 [facility] Comment on above: Performed By: #### 0 0121, 85851, 51477, 08517, 93872 #### [facility] [address] ABS NEUTROPHILS 5.1 10*3/uL Normal 1.6-7.6 [facility] Comment on above: Performed By: #### 0 0121, 54054, 33859, 98845, 74529 #### [facility] [address] Basophils/100 WBC (Bld) 1.5 % High 0.0-1.0 [facility] Comment on above: Performed By: #### 0 0121, 17448, 81016, 36486, 06952 #### [facility] [address] [place] [address], [facility] Eosinophils (Bld) [#/Vol] 0.3 10*3/uL Normal 0.0-0.5 [facility] Comment on above: Performed By: #### 0 0121, 76067, 29929, 73697, 77769 #### [facility] [address] [place] [address], [facility] Eosinophils/100 WBC (Bld) 3.7 % Normal 0.0-6.0 [facility] Comment on above: Performed By: #### 0 0121, 86231, 84517, 57419, 73392 #### [facility] [address] Erythrocyte distribution width (RBC) [Ratio] 13.2 % Normal 11.5-15.0 [facility] Comment on above: Performed By: #### 0 0121, 53824, 56114, 16716, 54047 #### [facility] [address] Hematocrit (Bld) [Volume fraction] 39.2 % Normal 39.0-50.0 [facility] Comment on above: Performed By: #### 0 0121, 57203, 51131, 77798, 54513 #### [facility] [address] [place] [address], [facility] Hemoglobin (Bld) [Mass/Vol] 12.4 g/dL Low 13.0-17.0 [facility] Comment on above: Performed By: #### 0 0121, 84118, 52768, 49460, 14965 #### [facility] [address] IMMATURE GRANS 0.4 % Normal 0.0-1.0 [facility] Comment on above: Performed By: #### 0 0121, 60689, 78216, 82216, 21747 #### [facility] [address] Lymphocytes (Bld) [#/Vol] 1.7 10*3/uL Normal 1.2-4.0 [facility] Comment on above: Performed By: #### 0 0121, 14196, 21052, 61763, 01542 #### [facility] [address] Lymphocytes/100 WBC (Bld) 21.2 % Normal 20.0-45.0 [facility] Comment on above: Performed By: #### 0 0121, 86326, 60038, 18573, 27786 #### [facility] [address] MCH (RBC) [Entitic mass] 28.8 pg Normal 27.0-33.0 [facility] Comment on above: Performed By: #### 0 0121, 20449, 21397, 90070, 26327 #### [facility] [address] MCHC (RBC) [Mass/Vol] 31.6 g/dL Low 32.0-35.0 [facility] Comment on above: Performed By: #### 0 0121, 51818, 63057, 35055, 58847 #### [facility] [address] MCV (RBC) [Entitic vol] 91.0 fL Normal 82.0-98.0 [facility] Comment on above: Performed By: #### 0 0121, 66441, 23924, 42384, 25174 #### [facility] [address] Monocytes (Bld) [#/Vol] 0.9 10*3/uL Normal 0.1-1.0 [facility] Comment on above: Performed By: #### 0 0121, 48663, 89971, 43886, 29985 #### [facility] [address] [place] [address], [facility] MONOS 10.6 % Normal 5.0-12.0 [facility] Comment on above: Performed By: #### 0 0121, 22463, 66410, 49170, 56355 #### [facility] [address] [place] [id number], [facility] Neutrophils/100 WBC (Bld) 62.6 % Normal 40.0-72.0 [facility] Comment on above: Performed By: #### 0 0121, 68476, 11705, 67155, 31660 #### [facility] [address] [place] [id number], [facility] Nucleated RBC/100 WBC (Bld) [Ratio] 0 % Normal 0-0 [facility] Comment on above: Performed By: #### 0 0121, 44809, 14781, 67906, 68342 #### [facility] [address] [place] [id number], [place] PLAT CNT 520 10*3/uL High 150-400 [facility] Comment on above: Performed By: #### 0 0121, 36278, 58479, 15820, 43197 #### [facility] [address] [place] [address], [place] RBC (Bld) [#/Vol] 4.31 10*6/uL Normal 4.20-5.70 [facility] Comment on above: Performed By: #### 0 0121, 68832, 42489, 68783, 81488 #### [facility] [address] [place] [address], [place] WBC (Bld) [#/Vol] 8.20 10*3/uL Normal 4.00-10.60 [facility] Comment on above: Performed By: #### 0 0121, 67019, 43543, 22461, 01435 #### [facility] [address] [place] [address], [facility] HEMOGLOBINon 04-07-2019 Hemoglobin (Bld) [Mass/Vol] CANCELED Normal 13.0-17.0 [facility] Comment on above: Result Comment: The released value 12.3 was canceled by OCREEGER on 04/07/2019 12:48 Performed By: #### 0 0121, 86057, 52130, 22754, 22707 #### [facility] [address] [place] [address], [facility] BASIC METABOLIC PANELon - Calcium [Mass/Vol] 9.0 mg/dL Normal 8.6-10.3 [facility] Comment on above: Order Comment: No: D o not add to previous draw Performed By: #### 0 0121, 55425, 31598, 57191, 43682 #### [facility] [address] [place] [address], [facility] Chloride [Moles/Vol] 98 mmol/L Normal 98-107 [facility] Comment on above: Order Comment: No: D o not add to previous draw Performed By: #### 0 0121, 37775, 37100, 09421, 60912 #### [facility] [address] [place] [address], [place] CO2 [Moles/Vol] 29 mmol/L Normal 21-31 [facility] Comment on above: Order Comment: No: D o not add to previous draw Performed By: #### 0 0121, 20791, 51407, 90149, 99381 #### [facility] [address] [place] [address], [place] Creatinine [Mass/Vol] 1.00 mg/dL Normal 0.70-1.30 [facility] Comment on above: Order Comment: No: D o not add to previous draw Performed By: #### 0 0121, 14752, 71001, 94246, 06348 #### [facility] [address] [place] [address], [place] GFR/1.73 sq M predicted among blacks MDRD (S/P/Bld) [Vol rate/Area] mL/min/{1.73_m2} Normal >60 [facility] Comment on above: Order Comment: No: D o not add to previous draw Performed By: #### 0 0121, 07445, 25869, 38072, 64639 #### [facility] [address] [place] [address], [place] GFR/1.73 sq M predicted among non-blacks MDRD (S/P/Bld) [Vol rate/Area] mL/min/{1.73_m2} Normal >60 [facility] Comment on above: Order Comment: No: D o not add to previous draw Performed By: #### 0 0121, 33953, 07076, 28384, 40770 #### [facility] [address] [place] [address], [place] Glucose [Mass/Vol] 96 mg/dL Normal 70-100 [facility] Comment on above: Order Comment: No: D o not add to previous draw Performed By: #### 0 0121, 93252, 11205, 13147, 86728 #### [facility] [address] [place] [address], [place] Potassium [Moles/Vol] 3.1 mmol/L Low 3.5-5.1 [facility] Comment on above: Order Comment: No: D o not add to previous draw Performed By: #### 0 0121, 69812, 85242, 28053, 06517 #### [facility] [address] [place] [address], [place] Sodium [Moles/Vol] 138 mmol/L Normal 136-145 [facility] Comment on above: Order Comment: No: D o not add to previous draw Performed By: #### 0 0121, 79427, 89174, 63480, 79906 #### [facility] [address] [place] [address], [facility] Urea nitrogen [Mass/Vol] 24 mg/dL Normal 7-25 [facility] Comment on above: Order Comment: No: D o not add to previous draw Performed By: #### 0 0121, 60905, 56088, 60499, 42690 #### [facility] [address] [place] [address], [facility] CBC COMPLETE BLOOD COUNTon 0 - Erythrocyte distribution width (RBC) [Ratio] 13.6 % Normal 11.5-15.0 [facility] Comment on above: Order Comment: No: D o not add to previous draw Performed By: #### 0 0121, 75306, 95986, 32816, 12922 #### [facility] [address] [place] [address], [facility] Hematocrit (Bld) [Volume fraction] 34.7 % Low 39.0-50.0 [facility] Comment on above: Order Comment: No: D o not add to previous draw Performed By: #### 0 0121, 39350, 72928, 38112, 08287 #### [facility] [address] [place] [address], [facility] Hemoglobin (Bld) [Mass/Vol] 11.3 g/dL Low 13.0-17.0 [facility] Comment on above: Order Comment: No: D o not add to previous draw Performed By: #### 0 0121, 21581, 52874, 40113, 91484 #### [facility] [address] [place] [address], [place] MCH (RBC) [Entitic mass] 28.8 pg Normal 27.0-33.0 [facility] Comment on above: Order Comment: No: D o not add to previous draw Performed By: #### 0 0121, 90592, 68075, 09108, 54298 #### [facility] [address] [place] [address], [facility] MCHC (RBC) [Mass/Vol] 32.6 g/dL Normal 32.0-35.0 [facility] Comment on above: Order Comment: No: D o not add to previous draw Performed By: #### 0 0121, 53464, 38904, 31326, 35073 #### [facility] [address] [facility] [place] [address], [facility] MCV (RBC) [Entitic vol] 88.5 fL Normal 82.0-98.0 [facility] Comment on above: Order Comment: No: D o not add to previous draw Performed By: #### 0 0121, 77442, 05492, 73629, 65745 #### [facility] [address] Nucleated RBC/100 WBC (Bld) [Ratio] 0 % Normal 0-0 [facility] Comment on above: Order Comment: No: D o not add to previous draw Performed By: #### 0 0121, 83286, 14782, 72053, 14273 #### [facility] [address] [place] [address], [facility] PLAT CNT 205 10*3/uL Normal 150-400 [facility] Comment on above: Order Comment: No: D o not add to previous draw Performed By: #### 0 0121, 60971, 43753, 76917, 71417 #### [facility] [address] [place] [address], [facility] RBC (Bld) [#/Vol] 3.92 10*6/uL Low 4.20-5.70 [facility] Comment on above: Order Comment: No: D o not add to previous draw Performed By: #### 0 0121, 59152, 98366, 42698, 15789 #### [facility] [address] [place] [address], [facility] WBC (Bld) [#/Vol] 11.83 10*3/uL High 4.00-10.60 [facility] Comment on above: Order Comment: No: D o not add to previous draw Performed By: #### 0 0121, 05574, 86114, 74740, 01407 #### [facility] [address] [place] [address], [facility] MAGNESIUM BLOODon 03-27-2019 Magnesium [Mass/Vol] 2.3 mg/dL Normal 1.9-2.7 [facility] Comment on above: Order Comment: No: D o not add to previous draw Performed By: #### 0 0121, 51898, 96793, 37826, 45654 #### [facility] [address] [place] [address], [facility] POC GLUCOSE LABon 03-27-2019 Glucose [Mass/Vol] 115 mg/dL High 70-100 [facility] Comment on above: Performed By: #### 0 0121, 54119, 53996, 58749, 37378 #### [facility] [address] [place] [address], [facility] Glucose [Mass/Vol] 96 mg/dL Normal 70-100 [facility] Comment on above: Performed By: #### 0 0121, 71189, 87231, 49135, 27013 #### [facility] [address] [place] [address], [facility] PORTABLE CHEST 1 VIEWon 03-01 PORTABLE CHEST 1 VIEW [facility] Department of Radiology [address] [place] [address] [id number] ===== Patient Name: TRACIE CRAIN : 1965 Sex: M Age: Race: NA Pt. Location: [id number] Patient Status: I Ordered Date: 03/27/2019 5:00:00 AM Completed Date: 03/27/2019 04:24 AM Requesting Provider: TIMBO BLACK Attending Provider: TIMBO BLACK Report Copy To: Signs & Symptoms: Pneumonia History: Patient history not available Comments: R/O Pneumonia Exam: PORTABLE CHEST 1 VIEW ===== PORTABLE CHEST 1 VIEW 03/27/2019 4:24 AM [...] findings. Electronically signed by:Divya Collins. Transcribed by: [email or web address], User Resident: ANAI ALVARADO Electronically Signed by: DIVYA COLLINS @ 03/27/2019 09:07 AM I personally read this/these film(s) with this resident Normal [facility] Comment on above: Order Comment: No: D o not add to previous draw BASIC METABOLIC PANELon 03-01 Calcium [Mass/Vol] 9.2 mg/dL Normal 8.6-10.3 [facility] Comment on above: Order Comment: No: D o not add to previous draw Performed By: #### 0 0121, 22517, 70564, 98368, 99437 #### [facility] [address] [place] [address], [place] Chloride [Moles/Vol] 101 mmol/L Normal 98-107 [facility] Comment on above: Order Comment: No: D o not add to previous draw Performed By: #### 0 0121, 36011, 87032, 21197, 44484 #### [facility] [address] [place] [address], [place] CO2 [Moles/Vol] 27 mmol/L Normal 21-31 [facility] Comment on above: Order Comment: No: D o not add to previous draw Performed By: #### 0 0121, 45982, 64889, 48247, 39892 #### [facility] [address] [place] [address], [place] Creatinine [Mass/Vol] 0.93 mg/dL Normal 0.70-1.30 [facility] Comment on above: Order Comment: No: D o not add to previous draw Performed By: #### 0 0121, 03625, 92572, 67877, 89183 #### [facility] [address] [place] [address], [place] GFR/1.73 sq M predicted among blacks MDRD (S/P/Bld) [Vol rate/Area] mL/min/{1.73_m2} Normal >60 [facility] Comment on above: Order Comment: No: D o not add to previous draw Performed By: #### 0 0121, 83508, 32001, 49621, 24456 #### [facility] [address] [place] [address], [place] GFR/1.73 sq M predicted among non-blacks MDRD (S/P/Bld) [Vol rate/Area] mL/min/{1.73_m2} Normal >60 [facility] Comment on above: Order Comment: No: D o not add to previous draw Performed By: #### 0 0121, 58022, 90834, 91594, 89528 #### [facility] [address] [place] [address], [facility] Glucose [Mass/Vol] 111 mg/dL High 70-100 [facility] Comment on above: Order Comment: No: D o not add to previous draw Performed By: #### 0 0121, 51149, 71528, 87503, 11359 #### [facility] [address] [place] [address], [facility] Potassium [Moles/Vol] 3.9 mmol/L Normal 3.5-5.1 [facility] Comment on above: Order Comment: No: D o not add to previous draw Performed By: #### 0 0121, 19285, 15274, 73665, 78416 #### [facility] [address] [place] [address], [facility] Sodium [Moles/Vol] 137 mmol/L Normal 136-145 [facility] Comment on above: Order Comment: No: D o not add to previous draw Performed By: #### 0 0121, 24127, 39111, 71192, 00282 #### [facility] [address] [place] [address], [facility] Urea nitrogen [Mass/Vol] 26 mg/dL High 7-25 [facility] Comment on above: Order Comment: No: D o not add to previous draw Performed By: #### 0 0121, 67790, 14284, 87702, 05696 #### [facility] [address] [place] [address], [facility] CBC W/DIFFon 03-26-2019 ABS BASOPHILS 0.1 10*3/uL Normal 0.0-0.2 [facility] Comment on above: Order Comment: No: D o not add to previous draw Performed By: #### 0 0121, 22504, 15711, 26167, 87754 #### [facility] [address] [address], [facility] ABS IMM GRANS 0.5 10*3/uL High 0.0-0.2 [facility] Comment on above: Order Comment: No: D o not add to previous draw Performed By: #### 0 0121, 46598, 98399, 86764, 38873 #### [facility] [address] [place] [address], [facility] ABS NEUTROPHILS 10.2 10*3/uL High 1.6-7.6 [facility] Comment on above: Order Comment: No: D o not add to previous draw Performed By: #### 0 0121, 13957, 40101, 54229, 81266 #### [facility] [address] [facility] [place] [address], [facility] Basophils/100 WBC (Bld) 0.6 % Normal 0.0-1.0 [facility] Comment on above: Order Comment: No: D o not add to previous draw Performed By: #### 0 0121, 47467, 91812, 42284, 82260 #### [facility] [address] [place] [address], [facility] Eosinophils (Bld) [#/Vol] 0.4 10*3/uL Normal 0.0-0.5 [facility] Comment on above: Order Comment: No: D o not add to previous draw Performed By: #### 0 0121, 69579, 68829, 32951, 88071 #### [facility] [address] [facility] [place] [place] [address], [facility] Eosinophils/100 WBC (Bld) 2.8 % Normal 0.0-6.0 [facility] Comment on above: Order Comment: No: D o not add to previous draw Performed By: #### 0 0121, 91013, 54733, 45756, 03509 #### [facility] [address] [facility] Erythrocyte distribution width (RBC) [Ratio] 13.6 % Normal 11.5-15.0 [facility] Comment on above: Order Comment: No: D o not add to previous draw Performed By: #### 0 0121, 36814, 88844, 96731, 62454 #### [facility] [address] [place] [address], [facility] Hematocrit (Bld) [Volume fraction] 34.5 % Low 39.0-50.0 [facility] Comment on above: Order Comment: No: D o not add to previous draw Performed By: #### 0 0121, 05052, 97179, 48349, 96713 #### [facility] [address] Hemoglobin (Bld) [Mass/Vol] 11.3 g/dL Low 13.0-17.0 [facility] Comment on above: Order Comment: No: D o not add to previous draw Performed By: #### 0 0121, 55788, 72652, 14875, 74140 #### [facility] [address] [facility] [place] [address], [facility] IMMATURE GRANS 3.5 % High 0.0-1.0 [facility] Comment on above: Order Comment: No: D o not add to previous draw Performed By: #### 0 0121, 16987, 31469, 96876, 03907 #### [facility] [address] [place] [address], [facility] Lymphocytes (Bld) [#/Vol] 1.3 10*3/uL Normal 1.2-4.0 [facility] Comment on above: Order Comment: No: D o not add to previous draw Performed By: #### 0 0121, 26208, 37462, 62799, 81660 #### [facility] [address] [place] [address], [facility] Lymphocytes/100 WBC (Bld) 9.2 % Low 20.0-45.0 [facility] Comment on above: Order Comment: No: D o not add to previous draw Performed By: #### 0 0121, 79779, 50052, 26138, 36894 #### [facility] [address] [place] [address], [facility] MCH (RBC) [Entitic mass] 28.9 pg Normal 27.0-33.0 [facility] Comment on above: Order Comment: No: D o not add to previous draw Performed By: #### 0 0121, 12322, 16345, 60043, 81776 #### [facility] [address] [place] [address], [facility] MCHC (RBC) [Mass/Vol] 32.8 g/dL Normal 32.0-35.0 [facility] Comment on above: Order Comment: No: D o not add to previous draw Performed By: #### 0 0121, 00938, 02759, 16749, 79628 #### [facility] [address] [place] [address], [facility] MCV (RBC) [Entitic vol] 88.2 fL Normal 82.0-98.0 [facility] Comment on above: Order Comment: No: D o not add to previous draw Performed By: #### 0 0121, 73862, 59465, 42610, 95987 #### [facility] [address] [place] [address], [facility] Monocytes (Bld) [#/Vol] 1.7 10*3/uL High 0.1-1.0 [facility] Comment on above: Order Comment: No: D o not add to previous draw Performed By: #### 0 0121, 74468, 45053, 52392, 47901 #### [facility] [address] [place] [address], [place] MONOS 11.7 % Normal 5.0-12.0 [facility] Comment on above: Order Comment: No: D o not add to previous draw Performed By: #### 0 0121, 05894, 72225, 09817, 23567 #### [facility] [address] [place] [address], [facility] Neutrophils/100 WBC (Bld) 72.2 % High 40.0-72.0 [facility] Comment on above: Order Comment: No: D o not add to previous draw Performed By: #### 0 0121, 70338, 05784, 49549, 26577 #### [facility] [address] [place] [address], [place] Nucleated RBC/100 WBC (Bld) [Ratio] 0 % Normal 0-0 [facility] Comment on above: Order Comment: No: D o not add to previous draw Performed By: #### 0 0121, 35310, 55465, 61246, 91278 #### [facility] [address] [place] [address], [place] PLAT CNT 215 10*3/uL Normal 150-400 [facility] Comment on above: Order Comment: No: D o not add to previous draw Performed By: #### 0 0121, 77981, 03500, 28201, 84718 #### [facility] [address] [place] [address], [facility] RBC (Bld) [#/Vol] 3.91 10*6/uL Low 4.20-5.70 [facility] Comment on above: Order Comment: No: D o not add to previous draw Performed By: #### 0 0121, 53816, 94418, 12859, 40019 #### [facility] [address] [place] [address], [place] WBC (Bld) [#/Vol] 14.17 10*3/uL High 4.00-10.60 [facility] Comment on above: Order Comment: No: D o not add to previous draw Performed By: #### 0 0121, 28089, 96249, 84590, 74916 #### [facility] [address] [place] [address], [place] POC GLUCOSE LABon 03-26-2019 Glucose [Mass/Vol] 129 mg/dL High 70-100 [facility] Comment on above: Performed By: #### 0 0121, 05371, 27849, 42553, 76197 #### [facility] [address] [place] [address], [place] Glucose [Mass/Vol] 129 mg/dL High 70-100 [facility] Comment on above: Performed By: #### 0 0121, 26751, 73611, 56814, 58172 #### [facility] [address] [place] [address], [place] Glucose [Mass/Vol] 130 mg/dL High 70-100 [facility] Comment on above: Performed By: #### 0 0121, 64846, 27091, 13625, 46881 #### [facility] [address] [place] [address], [place] Glucose [Mass/Vol] 91 mg/dL Normal 70-100 [facility] Comment on above: Performed By: #### 0 0121, 05816, 03488, 24680, 51130 #### [facility] [address] [place] [address], [facility] PORTABLE CHEST 1 VIEWon 03-01 PORTABLE CHEST 1 VIEW [facility] Department of Radiology [address] [place] [id number] ===== Patient Name: TRACIE CRAIN : 1965 Sex: M Age: Race: NA Pt. Location: [id number] Patient Status: I Ordered Date: 03/26/2019 7:00:00 AM Completed Date: 03/26/2019 06:36 AM Requesting Provider: TIMBO BLACK Attending Provider: JIAN SYED Report Copy To: Signs & Symptoms: Post Chest Tube Removal History: Patient history not available Comments: R/O Atelectasis Exam: PORTABLE CHEST 1 VIEW ===== PORTABLE CHEST 1 VIEW 03/26/2019 6:36 AM [...] findings. Electronically signed by:Divya Collins. Transcribed by: [email or web address], User Resident: KAREEM LIAO Electronically Signed by: DIVYA COLLINS @ 03/26/2019 10:03 AM I personally read this/these film(s) with this resident Normal [facility] Comment on above: Order Comment: No: D o not add to previous draw BASIC METABOLIC PANELon - Calcium [Mass/Vol] 9.1 mg/dL Normal 8.6-10.3 [facility] Comment on above: Order Comment: << On admission If not done in ED>> No: Do not add to previous draw Performed By: #### 0 0121, 67664, 16757, 93775, 79409 #### [facility] [address] [place] [address], [place] Chloride [Moles/Vol] 98 mmol/L Normal 98-107 [facility] Comment on above: Order Comment: << On admission If not done in ED>> No: Do not add to previous draw Performed By: #### 0 0121, 39128, 55440, 72542, 26917 #### [facility] [address] [place] [address], [place] CO2 [Moles/Vol] 29 mmol/L Normal 21-31 [facility] Comment on above: Order Comment: << On admission If not done in ED>> No: Do not add to previous draw Performed By: #### 0 0121, 22629, 55107, 44513, 48582 #### [facility] [address] [place] [address], [place] Creatinine [Mass/Vol] 1.01 mg/dL Normal 0.70-1.30 [facility] Comment on above: Order Comment: << On admission If not done in ED>> No: Do not add to previous draw Performed By: #### 0 0121, 79868, 89890, 99804, 38588 #### [facility] [address] [place] [address], [place] GFR/1.73 sq M predicted among blacks MDRD (S/P/Bld) [Vol rate/Area] mL/min/{1.73_m2} Normal >60 [facility] Comment on above: Order Comment: << On admission If not done in ED>> No: Do not add to previous draw Performed By: #### 0 0121, 57228, 56775, 50400, 43954 #### [facility] [address] [place] [address], [facility] GFR/1.73 sq M predicted among non-blacks MDRD (S/P/Bld) [Vol rate/Area] mL/min/{1.73_m2} Normal >60 [facility] Comment on above: Order Comment: << On admission If not done in ED>> No: Do not add to previous draw Performed By: #### 0 0121, 27211, 37979, 82435, 60110 #### [facility] [address] [place] [address], [facility] Glucose [Mass/Vol] 123 mg/dL High 70-100 [facility] Comment on above: Order Comment: << On admission If not done in ED>> No: Do not add to previous draw Performed By: #### 0 0121, 93771, 25733, 42046, 50921 #### [facility] [address] [place] [address], [facility] Potassium [Moles/Vol] 3.9 mmol/L Normal 3.5-5.1 [facility] Comment on above: Order Comment: << On admission If not done in ED>> No: Do not add to previous draw Performed By: #### 0 0121, 42556, 27885, 76061, 94655 #### [facility] [address] [place] [address], [facility] Sodium [Moles/Vol] 134 mmol/L Low 136-145 [facility] Comment on above: Order Comment: << On admission If not done in ED>> No: Do not add to previous draw Performed By: #### 0 0121, 06236, 76736, 56705, 16466 #### [facility] [address] [place] [address], [place] Urea nitrogen [Mass/Vol] 29 mg/dL High 7-25 [facility] Comment on above: Order Comment: << On admission If not done in ED>> No: Do not add to previous draw Performed By: #### 0 [id number], [id number] #### [facility] [address] [place] [address], [facility] CBC W/DIFFon 03-25-2019 ABS BASOPHILS 0.1 10*3/uL Normal 0.0-0.2 [facility] Comment on above: Order Comment: << On admission If not done in ED>> No: Do not add to previous draw Performed By: #### 0 0121, 73521, 45787, 59853, 63105 #### [facility] [address] [facility] [place] [address], [facility] ABS NEUTROPHILS 11.2 10*3/uL High 1.6-7.6 [facility] Comment on above: Order Comment: << On admission If not done in ED>> No: Do not add to previous draw Performed By: #### 0 0121, 63653, 03791, 48800, 69358 #### [facility] [address] [facility] [place] [address], [facility] Basophils/100 WBC (Bld) 0.9 % Normal 0.0-1.0 [facility] Comment on above: Order Comment: << On admission If not done in ED>> No: Do not add to previous draw Performed By: #### 0 0121, 70606, 96277, 90474, 90889 #### [facility] [address] [facility] [place] [address], [facility] Eosinophils (Bld) [#/Vol] 0.1 10*3/uL Normal 0.0-0.5 [facility] Comment on above: Order Comment: << On admission If not done in ED>> No: Do not add to previous draw Performed By: #### 0 0121, 48337, 92781, 20469, 01844 #### [facility] [address] [facility] [place] [place] [address], [facility] Eosinophils/100 WBC (Bld) 0.9 % Normal 0.0-6.0 [facility] Comment on above: Order Comment: << On admission If not done in ED>> No: Do not add to previous draw Performed By: #### 0 0121, 50231, 00374, 87569, 54457 #### [facility] [address] Erythrocyte distribution width (RBC) [Ratio] 13.4 % Normal 11.5-15.0 [facility] Comment on above: Order Comment: << On admission If not done in ED>> No: Do not add to previous draw Performed By: #### 0 0121, 61828, 81929, 07456, 68929 #### [facility] [address] GIANT PLATELETS Present Normal [facility] Comment on above: Order Comment: << On admission If not done in ED>> No: Do not add to previous draw Performed By: #### 0 0121, 96104, 20676, 41410, 30403 #### [facility] [address] Hematocrit (Bld) [Volume fraction] 35.4 % Low 39.0-50.0 [facility] Comment on above: Order Comment: << On admission If not done in ED>> No: Do not add to previous draw Performed By: #### 0 0121, 89302, 41016, 31717, 69770 #### [facility] [address] Hemoglobin (Bld) [Mass/Vol] 11.1 g/dL Low 13.0-17.0 [facility] Comment on above: Order Comment: << On admission If not done in ED>> No: Do not add to previous draw Performed By: #### 0 0121, 93018, 85794, 36500, 63670 #### [facility] [address] [place] [address], [facility] Lymphocytes (Bld) [#/Vol] 0.8 10*3/uL Low 1.2-4.0 [facility] Comment on above: Order Comment: << On admission If not done in ED>> No: Do not add to previous draw Performed By: #### 0 0121, 68886, 52170, 08770, 62266 #### [facility] [address] [place] [address], [facility] Lymphocytes/100 WBC (Bld) 6.3 % Low 20.0-45.0 [facility] Comment on above: Order Comment: << On admission If not done in ED>> No: Do not add to previous draw Performed By: #### 0 0121, 07741, 20593, 39879, 77847 #### [facility] [address] [place] [address], [facility] MCH (RBC) [Entitic mass] 28.8 pg Normal 27.0-33.0 [facility] Comment on above: Order Comment: << On admission If not done in ED>> No: Do not add to previous draw Performed By: #### 0 0121, 73463, 23378, 13212, 84498 #### [facility] [address] [place] [address], [facility] MCHC (RBC) [Mass/Vol] 31.4 g/dL Low 32.0-35.0 [facility] Comment on above: Order Comment: << On admission If not done in ED>> No: Do not add to previous draw Performed By: #### 0 0121, 20859, 24465, 48793, 72931 #### [facility] [address] [place] [address], [facility] MCV (RBC) [Entitic vol] 91.9 fL Normal 82.0-98.0 [facility] Comment on above: Order Comment: << On admission If not done in ED>> No: Do not add to previous draw Performed By: #### 0 0121, 99852, 93725, 32283, 55019 #### [facility] [address] [place] [address], [facility] Monocytes (Bld) [#/Vol] 0.7 10*3/uL Normal 0.1-1.0 [facility] Comment on above: Order Comment: << On admission If not done in ED>> No: Do not add to previous draw Performed By: #### 0 0121, 45482, 29478, 02064, 57050 #### [facility] [address] [place] [address], [facility] MONOS 5.4 % Normal 5.0-12.0 [facility] Comment on above: Order Comment: << On admission If not done in ED>> No: Do not add to previous draw Performed By: #### 0 0121, 92212, 90747, 28873, 09420 #### [facility] [address] [place] [address], [facility] MYELOS 0.9 % High .0-.0 [facility] Comment on above: Order Comment: << On admission If not done in ED>> No: Do not add to previous draw Performed By: #### 0 0121, 21035, 55836, 95443, 18516 #### [facility] [address] [place] [address], [facility] Neutrophils/100 WBC (Bld) 85.6 % High 40.0-72.0 [facility] Comment on above: Order Comment: << On admission If not done in ED>> No: Do not add to previous draw Performed By: #### 0 0121, 08075, 02442, 21431, 52259 #### [facility] [address] [place] [address], [facility] Nucleated RBC/100 WBC (Bld) [Ratio] 0 % Normal 0-0 [facility] Comment on above: Order Comment: << On admission If not done in ED>> No: Do not add to previous draw Performed By: #### 0 0121, 71923, 74309, 72562, 38391 #### [facility] [address] [place] [address], [facility] PLAT CNT 196 10*3/uL Normal 150-400 [facility] Comment on above: Order Comment: << On admission If not done in ED>> No: Do not add to previous draw Performed By: #### 0 0121, 13714, 55583, 96982, 15039 #### [facility] [address] [place] [address], [facility] RBC (Bld) [#/Vol] 3.85 10*6/uL Low 4.20-5.70 [facility] Comment on above: Order Comment: << On admission If not done in ED>> No: Do not add to previous draw Performed By: #### 0 0121, 60052, 24864, 72414, 65968 #### [facility] [address] [place] [address], [facility] WBC (Bld) [#/Vol] 13.09 10*3/uL High 4.00-10.60 [facility] Comment on above: Order Comment: << On admission If not done in ED>> No: Do not add to previous draw Performed By: #### 0 0121, 73714, 46071, 90189, 99232 #### [facility] [address] MAGNESIUM BLOODon 03-25-2019 Magnesium [Mass/Vol] 2.3 mg/dL Normal 1.9-2.7 [facility] Comment on above: Order Comment: << On admission If not done in ED>> No: Do not add to previous draw Performed By: #### 0 0121, 97885, 34388, 99638, 56515 #### [facility] [address] [place] [address], [facility] PHOSPHORUS BLOODon 9 Phosphate [Mass/Vol] 2.6 mg/dL Normal 2.5-5.0 [facility] Comment on above: Order Comment: << On admission If not done in ED>> No: Do not add to previous draw Performed By: #### 0 0121, 44806, 43735, 59316, 50949 #### [facility] [address] [place] [address], [place] POC GLUCOSE LABon 03-25-2019 Glucose [Mass/Vol] 103 mg/dL High 70-100 [facility] Comment on above: Performed By: #### 0 0121, 50453, 24932, 67100, 96169 #### [facility] [address] [place] [address], [place] Glucose [Mass/Vol] 113 mg/dL High 70-100 [facility] Comment on above: Performed By: #### 0 0121, 42616, 17886, 49314, 71979 #### [facility] [address] [place] [address], [place] Glucose [Mass/Vol] 120 mg/dL High 70-100 [facility] Comment on above: Performed By: #### 0 0121, 43220, 22839, 58593, 16415 #### [facility] [address] [place] [address], [place] Glucose [Mass/Vol] 110 mg/dL High 70-100 [facility] Comment on above: Performed By: #### 0 0121, 35120, 83336, 98923, 50224 #### [facility] [address] [facility] [place] [address], [facility] PORTABLE CHEST 1 VIEWon 03-01 PORTABLE CHEST 1 VIEW [facility] Department of Radiology [address] [place] [address] ===== Patient Name: TRACIE CRAIN : 1965 Sex: M Age: Race: NA Pt. Location: [id number] Patient Status: I Ordered Date: 03/25/2019 7:00:00 AM Completed Date: 03/25/2019 07:15 AM Requesting Provider: TIMBO BLACK Attending Provider: TIMBO BLACK Report Copy To: Signs & Symptoms: Post Chest Tube Clamped History: Patient history not available Comments: Other Exam: PORTABLE CHEST 1 VIEW ===== PORTABLE CHEST 1 VIEW 03/25/2019 7:15 AM [...] findings. Electronically signed by:Divya Collins. Transcribed by: [email or web address], User Resident: KAREEM LIAO Electronically Signed by: DIVYA COLLINS @ 03/25/2019 11:10 AM I personally read this/these film(s) with this resident Normal [facility] Comment on above: Order Comment: No: D o not add to previous draw BASIC METABOLIC PANELon 03-01 Calcium [Mass/Vol] 9.0 mg/dL Normal 8.6-10.3 [facility] Comment on above: Order Comment: << On admission If not done in ED>> No: Do not add to previous draw Performed By: #### 0 0121, 77627, 97067, 72867, 52450 #### [facility] [address] [place] [address], [facility] Chloride [Moles/Vol] 96 mmol/L Low 98-107 [facility] Comment on above: Order Comment: << On admission If not done in ED>> No: Do not add to previous draw Performed By: #### 0 0121, 68312, 65367, 99324, 26000 #### [facility] [address] [place] [address], [facility] CO2 [Moles/Vol] 30 mmol/L Normal 21-31 [facility] Comment on above: Order Comment: << On admission If not done in ED>> No: Do not add to previous draw Performed By: #### 0 0121, 75119, 43721, 08756, 33356 #### [facility] [address] [place] [address], [facility] Creatinine [Mass/Vol] 0.89 mg/dL Normal 0.70-1.30 [facility] Comment on above: Order Comment: << On admission If not done in ED>> No: Do not add to previous draw Performed By: #### 0 0121, 76007, 13365, 35879, 53681 #### [facility] [address] [place] [address], [place] GFR/1.73 sq M predicted among blacks MDRD (S/P/Bld) [Vol rate/Area] mL/min/{1.73_m2} Normal >60 [facility] Comment on above: Order Comment: << On admission If not done in ED>> No: Do not add to previous draw Performed By: #### 0 0121, 52588, 29187, 40547, 11646 #### [facility] [address] [place] [address], [facility] GFR/1.73 sq M predicted among non-blacks MDRD (S/P/Bld) [Vol rate/Area] mL/min/{1.73_m2} Normal >60 [facility] Comment on above: Order Comment: << On admission If not done in ED>> No: Do not add to previous draw Performed By: #### 0 0121, 44952, 06256, 49205, 23067 #### [facility] [address] [place] [address], [facility] Glucose [Mass/Vol] 98 mg/dL Normal 70-100 [facility] Comment on above: Order Comment: << On admission If not done in ED>> No: Do not add to previous draw Performed By: #### 0 0121, 85804, 32955, 35906, 92952 #### [facility] [address] [place] [address], [facility] Potassium [Moles/Vol] 3.2 mmol/L Low 3.5-5.1 [facility] Comment on above: Order Comment: << On admission If not done in ED>> No: Do not add to previous draw Performed By: #### 0 0121, 15944, 38557, 09968, 93964 #### [facility] [address] [place] [address], [place] Sodium [Moles/Vol] 135 mmol/L Low 136-145 [facility] Comment on above: Order Comment: << On admission If not done in ED>> No: Do not add to previous draw Performed By: #### 0 0121, 23713, 20735, 82446, 67918 #### [facility] [address] [place] [address], [place] Urea nitrogen [Mass/Vol] 29 mg/dL High 7-25 [facility] Comment on above: Order Comment: << On admission If not done in ED>> No: Do not add to previous draw Performed By: #### 0 0121, 14805, 01081, 46538, 93214 #### [facility] [address] [place] [address], [facility] CBC W/DIFFon 03-24-2019 ABS BASOPHILS 0.1 10*3/uL Normal 0.0-0.2 [facility] Comment on above: Order Comment: << On admission If not done in ED>> No: Do not add to previous draw Performed By: #### 0 0121, 84178, 35861, 44152, 08679 #### [facility] [address] ABS IMM GRANS 0.1 10*3/uL Normal 0.0-0.2 [facility] Comment on above: Order Comment: << On admission If not done in ED>> No: Do not add to previous draw Performed By: #### 0 0121, 42167, 19522, 75224, 85608 #### [facility] [address] ABS NEUTROPHILS 6.9 10*3/uL Normal 1.6-7.6 [facility] Comment on above: Order Comment: << On admission If not done in ED>> No: Do not add to previous draw Performed By: #### 0 0121, 21861, 56142, 97289, 12478 #### [facility] [address] Basophils/100 WBC (Bld) 0.8 % Normal 0.0-1.0 [facility] Comment on above: Order Comment: << On admission If not done in ED>> No: Do not add to previous draw Performed By: #### 0 0121, 39490, 50167, 82282, 70784 #### [facility] [address] Eosinophils (Bld) [#/Vol] 0.3 10*3/uL Normal 0.0-0.5 [facility] Comment on above: Order Comment: << On admission If not done in ED>> No: Do not add to previous draw Performed By: #### 0 0121, 18202, 19897, 04512, 95317 #### [facility] [address] [place] [address], [facility] Eosinophils/100 WBC (Bld) 2.8 % Normal 0.0-6.0 [facility] Comment on above: Order Comment: << On admission If not done in ED>> No: Do not add to previous draw Performed By: #### 0 0121, 78345, 20084, 21044, 05653 #### [facility] [address] Erythrocyte distribution width (RBC) [Ratio] 13.5 % Normal 11.5-15.0 [facility] Comment on above: Order Comment: << On admission If not done in ED>> No: Do not add to previous draw Performed By: #### 0 0121, 68306, 41429, 14836, 69627 #### [facility] [address] Hematocrit (Bld) [Volume fraction] 33.0 % Low 39.0-50.0 [facility] Comment on above: Order Comment: << On admission If not done in ED>> No: Do not add to previous draw Performed By: #### 0 0121, 72975, 29951, 62957, 27658 #### [facility] [address] Hemoglobin (Bld) [Mass/Vol] 10.4 g/dL Low 13.0-17.0 [facility] Comment on above: Order Comment: << On admission If not done in ED>> No: Do not add to previous draw Performed By: #### 0 0121, 36434, 93116, 56973, 34914 #### [facility] [address] [place] [address], [facility] IMMATURE GRANS 1.2 % High 0.0-1.0 [facility] Comment on above: Order Comment: << On admission If not done in ED>> No: Do not add to previous draw Performed By: #### 0 0121, 55941, 95722, 61281, 34344 #### [facility] [address] [place] [address], [facility] Lymphocytes (Bld) [#/Vol] 1.5 10*3/uL Normal 1.2-4.0 [facility] Comment on above: Order Comment: << On admission If not done in ED>> No: Do not add to previous draw Performed By: #### 0 0121, 80570, 66560, 79853, 56130 #### [facility] [address] [place] [address], [facility] Lymphocytes/100 WBC (Bld) 14.4 % Low 20.0-45.0 [facility] Comment on above: Order Comment: << On admission If not done in ED>> No: Do not add to previous draw Performed By: #### 0 0121, 47895, 04644, 98201, 94068 #### [facility] [address] [facility] [place] [address], [facility] MCH (RBC) [Entitic mass] 28.8 pg Normal 27.0-33.0 [facility] Comment on above: Order Comment: << On admission If not done in ED>> No: Do not add to previous draw Performed By: #### 0 0121, 10213, 90021, 00945, 54540 #### [facility] [address] [place] [address], [facility] MCHC (RBC) [Mass/Vol] 31.5 g/dL Low 32.0-35.0 [facility] Comment on above: Order Comment: << On admission If not done in ED>> No: Do not add to previous draw Performed By: #### 0 0121, 18581, 60914, 97667, 16821 #### [facility] [address] MCV (RBC) [Entitic vol] 91.4 fL Normal 82.0-98.0 [facility] Comment on above: Order Comment: << On admission If not done in ED>> No: Do not add to previous draw Performed By: #### 0 0121, 94375, 70946, 17993, 00062 #### [facility] [address] [place] [address], [facility] Monocytes (Bld) [#/Vol] 1.3 10*3/uL High 0.1-1.0 [facility] Comment on above: Order Comment: << On admission If not done in ED>> No: Do not add to previous draw Performed By: #### 0 0121, 17643, 83711, 32908, 78687 #### [facility] [address] MONOS 13.1 % High 5.0-12.0 [facility] Comment on above: Order Comment: << On admission If not done in ED>> No: Do not add to previous draw Performed By: #### 0 0121, 65741, 71086, 23176, 86647 #### [facility] [address] [place] [address], [facility] Neutrophils/100 WBC (Bld) 67.7 % Normal 40.0-72.0 [facility] Comment on above: Order Comment: << On admission If not done in ED>> No: Do not add to previous draw Performed By: #### 0 0121, 37505, 93460, 64564, 20866 #### [facility] [address] [place] [address], [facility] Nucleated RBC/100 WBC (Bld) [Ratio] 0 % Normal 0-0 [facility] Comment on above: Order Comment: << On admission If not done in ED>> No: Do not add to previous draw Performed By: #### 0 0121, 91959, 96127, 99166, 17799 #### [facility] [address] [facility] [place] [address], [facility] PLAT CNT 166 10*3/uL Normal 150-400 [facility] Comment on above: Order Comment: << On admission If not done in ED>> No: Do not add to previous draw Performed By: #### 0 0121, 54070, 91337, 54060, 75708 #### [facility] [address] [place] [address], [facility] RBC (Bld) [#/Vol] 3.61 10*6/uL Low 4.20-5.70 [facility] Comment on above: Order Comment: << On admission If not done in ED>> No: Do not add to previous draw Performed By: #### 0 0121, 77847, 88346, 11467, 80412 #### [facility] [address] WBC (Bld) [#/Vol] 10.21 10*3/uL Normal 4.00-10.60 [facility] Comment on above: Order Comment: << On admission If not done in ED>> No: Do not add to previous draw Performed By: #### 0 0121, 70802, 77590, 55170, 74400 #### [facility] [address] MAGNESIUM BLOODon 03-24-2019 Magnesium [Mass/Vol] 2.4 mg/dL Normal 1.9-2.7 [facility] Comment on above: Order Comment: << On admission If not done in ED>> No: Do not add to previous draw Performed By: #### 0 0121, 23992, 43000, 61571, 75196 #### [facility] [address] [place] [address], [facility] PHOSPHORUS BLOODon 9 Phosphate [Mass/Vol] 2.9 mg/dL Normal 2.5-5.0 [facility] Comment on above: Order Comment: << On admission If not done in ED>> No: Do not add to previous draw Performed By: #### 0 0121, 65049, 28729, 73414, 70438 #### [facility] [address] [place] [address], [facility] POC GLUCOSE LABon 03-24-2019 Glucose [Mass/Vol] 107 mg/dL High 70-100 [facility] Comment on above: Performed By: #### 0 0121, 15100, 08565, 17300, 25449 #### [facility] [address] [place] [address], [facility] PORTABLE CHEST 1 VIEWon 03-01 PORTABLE CHEST 1 VIEW [facility] Department of Radiology [address] [place] [id number] ===== Patient Name: TRACIE CRAIN : 1965 Sex: M Age: Race: NA Pt. Location: [id number] Patient Status: I Ordered Date: 03/24/2019 4:00:00 AM Completed Date: 03/24/2019 06:29 AM Requesting Provider: TIMBO BLACK Attending Provider: TIMBO BLACK Report Copy To: Signs & Symptoms: Post OP History: Patient history not available Comments: R/O Atelectasis Exam: PORTABLE CHEST 1 VIEW ===== PORTABLE CHEST 1 VIEW 03/24/2019 6:29 AM [...] recommended. Electronically signed by:Scottie Fall. Transcribed by: [email or web address], User Resident: Electronically Signed by: SCOTTIE FALL @ 03/24/2019 10:43 AM Normal [facility] Comment on above: Order Comment: << On admission If not done in ED>> No: Do not add to previous draw POC GLUCOSE LABon 03-23-2019 Glucose [Mass/Vol] 150 mg/dL High 70-100 [facility] Comment on above: Performed By: #### 0 0121, 97715, 79912, 17377, 05567 #### [facility] [address] [facility] [place] [place] [address], [place] Glucose [Mass/Vol] 110 mg/dL High 70-100 [facility] Comment on above: Performed By: #### 0 0121, 70098, 16529, 20223, 58602 #### [facility] [address] [place] [address], [place] Glucose [Mass/Vol] 112 mg/dL High 70-100 [facility] Comment on above: Performed By: #### 0 0121, 68648, 17324, 51261, 82440 #### [facility] [address] [place] [address], [place] Glucose [Mass/Vol] 93 mg/dL Normal 70-100 [facility] Comment on above: Performed By: #### 0 0121, 98416, 63880, 63032, 22624 #### [facility] [address] [place] [address], [place] ARTERIAL BLOOD GAS WITH ICAo n 03-22-2019 BASE EXCESS 4 mmol/L High -2-3 [facility] Comment on above: Performed By: #### 0 0121, 80267, 42865, 63770, 15695 #### [facility] [address] [place] [address], [place] [employer] NASAL CANNULA Normal [facility] Comment on above: Performed By: #### 0 0121, 15566, 53151, 87006, 13743 #### [facility] [address] [place] [address], [place] HCO3 (Bld) [Moles/Vol] 27 mmol/L Normal 21-28 [facility] Comment on above: Performed By: #### 0 0121, 36477, 31489, 56834, 02740 #### [facility] [address] [place] [address], [place] IONIZED CALCIUM 1.14 mmol/L Normal 1.13-1.32 [facility] Comment on above: Performed By: #### 0 0121, 99244, 40625, 70509, 42024 #### [facility] [address] [place] [address], [place] LPM 6.0 LPM Normal [facility] Comment on above: Performed By: #### 0 0121, 50592, 29859, 33702, 53414 #### [facility] [address] [place] [address], [place] Oxygen (Bld) [Partial pressure] 70 mm[Hg] Low 83-108 [facility] Comment on above: Performed By: #### 0 0121, 97652, 36608, 97818, 15559 #### [facility] [address] [place] [address], [place] Oxygen saturation in Blood 93.0 % Low 94.0-97.0 [facility] Comment on above: Performed By: #### 0 0121, 24351, 35428, 79936, 29911 #### [facility] [address] [place] [address], [place] PCO2 35 mmHg Normal 35-45 [facility] Comment on above: Performed By: #### 0 0121, 21874, 14390, 83749, 13002 #### [facility] [address] [place] [address], [place] pH (Bld) 7.50 [pH] High 7.35-7.45 [facility] Comment on above: Result Comment: KINJAL REYNOSO NOTE: Effective 12/02/18, reference ranges for Respiratory GEM analyzers running arterial blood have been updated to reflect the cafeteria assistant's published reference ranges. Performed By: #### 0 0121, 83317, 23527, 76844, 05895 #### [facility] [address] [place] [address], [facility] BASIC METABOLIC PANELon 06-2 Calcium [Mass/Vol] 8.9 mg/dL Normal 8.6-10.3 [facility] Comment on above: Order Comment: << On admission If not done in ED>> No: Do not add to previous draw Performed By: #### 0 0121, 82447, 97297, 05556, 81771 #### [facility] [address] [place] [address], [place] Chloride [Moles/Vol] 101 mmol/L Normal 98-107 [facility] Comment on above: Order Comment: << On admission If not done in ED>> No: Do not add to previous draw Performed By: #### 0 0121, 15248, 64424, 23808, 25501 #### [facility] [address] [place] [address], [place] CO2 [Moles/Vol] 28 mmol/L Normal 21-31 [facility] Comment on above: Order Comment: << On admission If not done in ED>> No: Do not add to previous draw Performed By: #### 0 0121, 14505, 90273, 09784, 39797 #### [facility] [address] [place] [address], [facility] Creatinine [Mass/Vol] 1.29 mg/dL Normal 0.70-1.30 [facility] Comment on above: Order Comment: << On admission If not done in ED>> No: Do not add to previous draw Performed By: #### 0 0121, 56232, 99768, 98936, 72594 #### [facility] [address] [place] [address], [facility] GFR/1.73 sq M predicted among blacks MDRD (S/P/Bld) [Vol rate/Area] mL/min/{1.73_m2} Normal >60 [facility] Comment on above: Order Comment: << On admission If not done in ED>> No: Do not add to previous draw Performed By: #### 0 0121, 99950, 64895, 05638, 53985 #### [facility] [address] [place] [address], [facility] GFR/1.73 sq M predicted among non-blacks MDRD (S/P/Bld) [Vol rate/Area] 58 ml/min/1.73sq m Abnormal >60 [facility] Comment on above: Order Comment: << On admission If not done in ED>> No: Do not add to previous draw Performed By: #### 0 0121, 06866, 65398, 01536, 25329 #### [facility] [address] [place] [address], [place] Glucose [Mass/Vol] 111 mg/dL High 70-100 [facility] Comment on above: Order Comment: << On admission If not done in ED>> No: Do not add to previous draw Performed By: #### 0 0121, 64690, 32918, 33905, 45514 #### [facility] [address] [place] [address], [facility] Sodium [Moles/Vol] 139 mmol/L Normal 136-145 [facility] Comment on above: Order Comment: << On admission If not done in ED>> No: Do not add to previous draw Performed By: #### 0 0121, 33892, 67434, 51610, 94874 #### [facility] [address] [place] [address], [facility] Urea nitrogen [Mass/Vol] 23 mg/dL Normal 7-25 [facility] Comment on above: Order Comment: << On admission If not done in ED>> No: Do not add to previous draw Performed By: #### 0 0121, 28986, 34314, 55821, 94200 #### [facility] [address] [place], [place] [address] [place] [address] CBC COMPLETE BLOOD COUNTon 03-22-2019 Erythrocyte distribution width (RBC) [Ratio] 13.4 % Normal 11.5-15.0 [facility] Comment on above: Order Comment: << On admission If not done in ED>> No: Do not add to previous draw Performed By: #### 0 0121, 27153, 14921, 88507, 06351 #### [facility] [address] [place] [address], [facility] Hematocrit (Bld) [Volume fraction] 31.2 % Low 39.0-50.0 [facility] Comment on above: Order Comment: << On admission If not done in ED>> No: Do not add to previous draw Performed By: #### 0 0121, 93289, 14680, 50819, 20429 #### [facility] [address] [place] [address], [facility] Hemoglobin (Bld) [Mass/Vol] 10.3 g/dL Low 13.0-17.0 [facility] Comment on above: Order Comment: << On admission If not done in ED>> No: Do not add to previous draw Performed By: #### 0 0121, 60172, 34221, 06717, 31319 #### [facility] [address] [place] [address], [facility] MCH (RBC) [Entitic mass] 28.9 pg Normal 27.0-33.0 [facility] Comment on above: Order Comment: << On admission If not done in ED>> No: Do not add to previous draw Performed By: #### 0 0121, 93456, 94835, 44669, 36799 #### [facility] [address] MCHC (RBC) [Mass/Vol] 33.0 g/dL Normal 32.0-35.0 [facility] Comment on above: Order Comment: << On admission If not done in ED>> No: Do not add to previous draw Performed By: #### 0 0121, 39293, 59489, 38590, 94107 #### [facility] [address] MCV (RBC) [Entitic vol] 87.4 fL Normal 82.0-98.0 [facility] Comment on above: Order Comment: << On admission If not done in ED>> No: Do not add to previous draw Performed By: #### 0 0121, 38418, 20902, 94694, 58443 #### [facility] [address] Nucleated RBC/100 WBC (Bld) [Ratio] 0 % Normal 0-0 [facility] Comment on above: Order Comment: << On admission If not done in ED>> No: Do not add to previous draw Performed By: #### 0 0121, 37541, 08307, 72255, 08953 #### [facility] [address] [place] [address], [facility] PLAT CNT 88 10*3/uL Low 150-400 [facility] Comment on above: Order Comment: << On admission If not done in ED>> No: Do not add to previous draw Performed By: #### 0 0121, 78441, 88608, 34341, 20049 #### [facility] [address] [place] [address], [facility] RBC (Bld) [#/Vol] 3.57 10*6/uL Low 4.20-5.70 [facility] Comment on above: Order Comment: << On admission If not done in ED>> No: Do not add to previous draw Performed By: #### 0 0121, 94967, 93232, 53314, 64811 #### [facility] [address] [place] [address], [facility] WBC (Bld) [#/Vol] 13.95 10*3/uL High 4.00-10.60 [facility] Comment on above: Order Comment: << On admission If not done in ED>> No: Do not add to previous draw Performed By: #### 0 0121, 66223, 12056, 71323, 56710 #### [facility] [address] [place] [address], [facility] COOXIMETRYon 03-22-2019 COHB 2 % Normal [facility] Comment on above: Performed By: #### 0 0121, 63359, 80020, 12540, 16998 #### [facility] [address] [place] [address], [facility] METHB 1 % Normal [facility] Comment on above: Performed By: #### 0 0121, 72990, 66168, 63853, 18296 #### [facility] [address] [place] [address], [place] Oxygen saturation in Blood 56.5 % Low 65.0-75.0 [facility] Comment on above: Performed By: #### 0 0121, 19612, 15290, 61529, 12387 #### [facility] [address] [place] [address], [facility] THB 9.9 g/dL Normal [facility] Comment on above: Performed By: #### 0 0121, 98480, 46237, 29045, 18667 #### [facility] [address] [place] [address], [facility] MAGNESIUM BLOODon 03-22-2019 Magnesium [Mass/Vol] 2.0 mg/dL Normal 1.9-2.7 [facility] Comment on above: Order Comment: << On admission If not done in ED>> No: Do not add to previous draw Performed By: #### 0 0121, 03427, 94092, 87693, 28685 #### [facility] [address] [place] [address], [facility] Magnesium [Mass/Vol] 1.9 mg/dL Normal 1.9-2.7 [facility] Comment on above: Order Comment: << On admission If not done in ED>> No: Do not add to previous draw Performed By: #### 0 0121, 59356, 03659, 40167, 81000 #### [facility] [address] [place] [address], [facility] PHOSPHORUS BLOODon 9 Phosphate [Mass/Vol] 3.6 mg/dL Normal 2.5-5.0 [facility] Comment on above: Order Comment: << On admission If not done in ED>> No: Do not add to previous draw Performed By: #### 0 0121, 72949, 93066, 70606, 42824 #### [facility] [address] [place] [address], [facility] POC GLUCOSE LABon 03-22-2019 Glucose [Mass/Vol] 111 mg/dL High 70-100 [facility] Comment on above: Performed By: #### 0 0121, 29789, 81713, 42651, 57385 #### [facility] [address] [place] [address], [place] Glucose [Mass/Vol] 108 mg/dL High 70-100 [facility] Comment on above: Performed By: #### 0 0121, 55441, 45551, 21875, 51943 #### [facility] [address] [place] [address], [place] Glucose [Mass/Vol] 109 mg/dL High 70-100 [facility] Comment on above: Performed By: #### 0 0121, 16724, 36219, 99742, 66254 #### [facility] [address] [place] [address], [place] Glucose [Mass/Vol] 99 mg/dL Normal 70-100 [facility] Comment on above: Performed By: #### 0 0121, 00563, 92720, 88881, 92644 #### [facility] [address] [place] [address], [place] Glucose [Mass/Vol] 91 mg/dL Normal 70-100 [facility] Comment on above: Performed By: #### 0 0121, 09793, 18012, 75729, 99684 #### [facility] [address] [facility] [place] [address], [facility] PORTABLE CHEST 1 VIEWon 03-01 PORTABLE CHEST 1 VIEW [facility] Department of Radiology [address] [place] [id number] ===== Patient Name: TRACIE CRAIN : 1965 Sex: M Age: Race: NA Pt. Location: [id number] Patient Status: I Ordered Date: 03/22/2019 5:00:00 AM Completed Date: 03/22/2019 07:25 AM Requesting Provider: TIMBO BLACK Attending Provider: TIMBO BLACK Report Copy To: Signs & Symptoms: Post Extubation History: Patient history not available Comments: R/O Atelectasis Exam: PORTABLE CHEST 1 VIEW ===== PORTABLE CHEST 1 VIEW 03/22/2019 7:25 AM EDT SIGNS AND SYMPTOMS: Post Extubation TECHNOLOGIST COMMENTS: short of breath, chest tube QUESTION FOR THE RADIOLOGIST: R/O Atelectasis PROTOCOL: AP(PA) view was obtained. COMPARISON: 03/21/2019. FINDINGS: Interval removal of endotracheal and enteric tubes. Right-sided Shawnee-Sher catheter is again seen with tip overlying [...] Small left pleural effusion, unchanged. 3. Right-sided Shawnee-Sher catheter with tip projecting over the pulmonary trunk, unchanged. 4. Redemonstration of 2 chest tubes on the right, unchanged. Approved by:Cynthia Finley on 03/22/2019 8:06 AM EDT. I, Yenni Osuna, have reviewed the images and report and concur with these findings. Electronically signed by:Yenni Osuna. Transcribed by: [email or web address], User Resident: CYNTHIA FINLEY Electronically Signed by: YENNI OSUNA @ 03/22/2019 01:07 PM I personally read this/these film(s) with this resident Normal [facility] Comment on above: Order Comment: << On admission If not done in ED>> No: Do not add to previous draw POTASSIUM BLOODon 03-22-2019 Potassium [Moles/Vol] 3.1 mmol/L Low 3.5-5.1 [facility] Comment on above: Order Comment: << On admission If not done in ED>> No: Do not add to previous draw Performed By: #### 0 0121, 86340, 63515, 03846, 10693 #### [facility] [address] [facility] PROTHROMBIN TIMEon 9 INR Coag (PPP) [Relative time] 1.37 {INR} High 0.91-1.16 [facility] Comment on above: [...] CHEST 1995;108:231S-246S. Performed By: #### 0 0121, 92626, 62059, 45532, 27769 #### [facility] [address] [facility] PT Coag (PPP) [Time] 16.9 s High 12.3-14.8 [facility] Comment on above: Order Comment: << On admission If not done in ED>> No: Do not add to previous draw Result Comment: ALL RESULTS MUST BE INTERPRETED WITH RESPECT TO BLOOD DRAWING ARTIFACT OR DILUTION ERROR OF ANTICOAGULANT AT THE TIME OF SAMPLING. Performed By: #### 0 0121, 15435, 12847, 99087, 84898 #### [facility] [address] [place] [address], [facility] ARTERIAL BLOOD GAS W/COOXon 03-21-2019 BASE EXCESS 1 mmol/L Normal -2-3 [facility] Comment on above: Performed By: #### 0 0121, 92376, 49541, 80365, 11439 #### [facility] [address] [place] [address], [facility] COHB 1.4 % Normal 0.0-1.5 [facility] Comment on above: Performed By: #### 0 0121, 71122, 58582, 06869, 42723 #### [facility] [address] [facility] [place] [address], [facility] FIO2 40 % Normal [facility] Comment on above: Performed By: #### 0 0121, 02168, 09326, 50027, 14764 #### [facility] [address] [facility] [place] [address], [facility] HCO3 (Bld) [Moles/Vol] 24 mmol/L Normal 21-28 [facility] Comment on above: Performed By: #### 0 0121, 06798, 57278, 12335, 03350 #### [facility] [address] [facility] [place] [address], [facility] METHB 1.1 % Normal 0.0-1.5 [facility] Comment on above: Performed By: #### 0 0121, 98143, 17165, 61235, 90582 #### [facility] [address] [place] [address], [facility] MIN VOLUME 13.1 Normal [facility] Comment on above: Performed By: #### 0 0121, 09025, 58083, 77878, 42355 #### [facility] [address] [place] [address], [place] MODALITY Positive Normal [facility] Comment on above: Performed By: #### 0 0121, 67260, 00652, 02038, 05142 #### [facility] [address] [place] [address], [place] Oxygen (Bld) [Partial pressure] 86 mm[Hg] Normal 83-108 [facility] Comment on above: Performed By: #### 0 0121, 87334, 46018, 61016, 70588 #### [facility] [address] [place] [address], [place] Oxygen saturation in Blood 94.8 % Normal 94.0-97.0 [facility] Comment on above: Performed By: #### 0 0121, 77141, 38483, 28814, 73671 #### [facility] [address] [place] [address], [place] PCO2 32 mmHg Low 35-45 [facility] Comment on above: Performed By: #### 0 0121, 22700, 24695, 37719, 19946 #### [facility] [address] [place] [address], [place] PEEP 8.0 CMH20 Normal [facility] Comment on above: Performed By: #### 0 0121, 06822, 50171, 00096, 52837 #### [facility] [address] [place] [address], [place] pH (Bld) 7.49 [pH] High 7.35-7.45 [facility] Comment on above: Result Comment: KINJAL REYNOSO NOTE: Effective 12/02/18, reference ranges for Respiratory GEM analyzers running arterial blood have been updated to reflect the cafeteria assistant's published reference ranges. Performed By: #### 0 0121, 69789, 98717, 77013, 73803 #### [facility] [address] [place] [address], [facility] PRESSURE SUPPORT 5 Normal [facility] Comment on above: Performed By: #### 0 0121, 17620, 86129, 26663, 85763 #### [facility] [address] [place] [address], [facility] THB 10.3 g/dL Low 12.0-16.3 [facility] Comment on above: Performed By: #### 0 0121, 18701, 90387, 63740, 21894 #### [facility] [address] [place] [address], [facility] ARTERIAL BLOOD GAS WITH ICAo n 03-21-2019 BASE EXCESS 4 mmol/L High -2-3 [facility] Comment on above: Performed By: #### 0 0121, 76071, 64585, 52235, 36784 #### [facility] [address] [place] [address], [facility] DELIVERY SYSTEMS NC Normal [facility] Comment on above: Performed By: #### 0 0121, 62155, 94242, 12242, 37134 #### [facility] [address] [place] [address], [facility] HCO3 (Bld) [Moles/Vol] 27 mmol/L Normal 21-28 [facility] Comment on above: Performed By: #### 0 0121, 72173, 32403, 08091, 78610 #### [facility] [address] [place] [address], [facility] IONIZED CALCIUM 1.17 mmol/L Normal 1.13-1.32 [facility] Comment on above: Performed By: #### 0 0121, 32704, 70465, 54576, 72329 #### [facility] [address] [place] [address], [facility] LPM 6.0 LPM Normal [facility] Comment on above: Performed By: #### 0 0121, 38486, 87645, 62707, 96932 #### [facility] [address] [place] [address], [place] Oxygen (Bld) [Partial pressure] 67 mm[Hg] Low 83-108 [facility] Comment on above: Performed By: #### 0 0121, 29750, 69786, 85965, 82449 #### [facility] [address] [place] [address], [place] Oxygen saturation in Blood 92.7 % Low 94.0-97.0 [facility] Comment on above: Performed By: #### 0 0121, 40361, 00333, 98615, 81671 #### [facility] [address] [place] [address], [facility] PCO2 36 mmHg Normal 35-45 [facility] Comment on above: Performed By: #### 0 0121, 46063, 79285, 69034, 85317 #### [facility] [address] [place] [address], [place] pH (Bld) 7.49 [pH] High 7.35-7.45 [facility] Comment on above: Result Comment: KINJAL REYNOSO NOTE: Effective 12/02/18, reference ranges for Respiratory GEM analyzers running arterial blood have been updated to reflect the cafeteria assistant's published reference ranges. Performed By: #### 0 0121, 83947, 88062, 66714, 99135 #### [facility] [address] [place] [address], [place] BASE EXCESS 1 mmol/L Normal -2-3 [facility] Comment on above: Performed By: #### 0 0121, 53805, 70710, 23610, 28154 #### [facility] [address] [place] [address], [place] DELIVERY SYSTEMS VENTILATOR Normal [facility] Comment on above: Performed By: #### 0 0121, 07543, 32879, 75560, 05573 #### [facility] [address] [place] [address], [facility] FIO2 40 % Normal [facility] Comment on above: Performed By: #### 0 0121, 77660, 93442, 74961, 24797 #### [facility] [address] [place] [address], [place] HCO3 (Bld) [Moles/Vol] 24 mmol/L Normal 21-28 [facility] Comment on above: Performed By: #### 0 0121, 28707, 79118, 38184, 01810 #### [facility] [address] [place] [address], [facility] IONIZED CALCIUM 1.07 mmol/L Low 1.13-1.32 [facility] Comment on above: Performed By: #### 0 0121, 09778, 39540, 11986, 34611 #### [facility] [address] [facility] [place] [address], [facility] MIN VOLUME 15.6 Normal [facility] Comment on above: Performed By: #### 0 0121, 32994, 02324, 59528, 43499 #### [facility] [address] [facility] [address], [facility] MODALITY Positive Normal [facility] Comment on above: Performed By: #### 0 0121, 04004, 28931, 77844, 60051 #### [facility] [address] [place] [address], [facility] Oxygen (Bld) [Partial pressure] 89 mm[Hg] Normal 83-108 [facility] Comment on above: Performed By: #### 0 0121, 19467, 51148, 29907, 19470 #### [facility] [address] [place] [address], [place] Oxygen saturation in Blood 94.7 % Normal 94.0-97.0 [facility] Comment on above: Performed By: #### 0 0121, 80336, 71348, 47764, 03432 #### [facility] [address] [place] [address], [facility] PCO2 30 mmHg Low 35-45 [facility] Comment on above: Performed By: #### 0 0121, 98697, 56347, 44074, 72132 #### [facility] [address] [place] [address], [place] PEEP 8.0 CMH20 Normal [facility] Comment on above: Performed By: #### 0 0121, 83281, 96616, 66798, 43019 #### [facility] [address] [place] [address], [facility] pH (Bld) 7.51 [pH] High 7.35-7.45 [facility] Comment on above: Result Comment: KINJAL REYNOSO NOTE: Effective 12/02/18, reference ranges for Respiratory GEM analyzers running arterial blood have been updated to reflect the cafeteria assistant's published reference ranges. Performed By: #### 0 0121, 45923, 42604, 14875, 56401 #### [facility] [address] [place] [address], [facility] PRESSURE SUPPORT 10 Normal [facility] Comment on above: Performed By: #### 0 0121, 51532, 14007, 60973, 56041 #### [facility] [address] [place] [address], [facility] BASE EXCESS 0 mmol/L Normal -2-3 [facility] Comment on above: Performed By: #### 0 0121, 14913, 91632, 85382, 55549 #### [facility] [address] [place] [address], [facility] DELIVERY SYSTEMS MV Normal [facility] Comment on above: Performed By: #### 0 0121, 97645, 10496, 12019, 35121 #### [facility] [address] [place] [address], [facility] FIO2 40 % Normal [facility] Comment on above: Performed By: #### 0 0121, 13129, 81569, 84963, 13519 #### [facility] [address] [place] [address], [facility] HCO3 (Bld) [Moles/Vol] 23 mmol/L Normal 21-28 [facility] Comment on above: Performed By: #### 0 0121, 96803, 13278, 66596, 31225 #### [facility] [address] [place] [address], [place] IONIZED CALCIUM 1.07 mmol/L Low 1.13-1.32 [facility] Comment on above: Performed By: #### 0 0121, 01808, 20139, 41134, 13443 #### [facility] [address] [place] [address], [facility] MIN VOLUME 17.0 Normal [facility] Comment on above: Performed By: #### 0 0121, 63424, 48586, 96002, 96839 #### [facility] [address] [place] [address], [place] MODALITY AC Normal [facility] Comment on above: Performed By: #### 0 0121, 63651, 81025, 69307, 20612 #### [facility] [address] [place] [address], [place] Oxygen (Bld) [Partial pressure] 94 mm[Hg] Normal 83-108 [facility] Comment on above: Performed By: #### 0 0121, 82594, 02602, 80893, 13286 #### [facility] [address] [place] [address], [place] Oxygen saturation in Blood 95.1 % Normal 94.0-97.0 [facility] Comment on above: Performed By: #### 0 0121, 52854, 49132, 26166, 59939 #### [facility] [address] [place] [address], [place] PCO2 30 mmHg Low 35-45 [facility] Comment on above: Performed By: #### 0 0121, 80002, 15797, 93419, 97779 #### [facility] [address] [place] [address], [place] PEEP 8.0 CMH20 Normal [facility] Comment on above: Performed By: #### 0 0121, 73785, 81646, 74591, 90425 #### [facility] [address] [place] [address], [place] pH (Bld) 7.49 [pH] High 7.35-7.45 [facility] Comment on above: Result Comment: KINJAL REYNOSO NOTE: Effective 12/02/18, reference ranges for Respiratory GEM analyzers running arterial blood have been updated to reflect the cafeteria assistant's published reference ranges. Performed By: #### 0 0121, 59354, 66250, 25223, 14742 #### [facility] [address] [place] [address], [place] TIDAL VOLUME (VT) CC 700 cc Normal [facility] Comment on above: Performed By: #### 0 0121, 56070, 70397, 07757, 35615 #### [facility] [address] [place] [address], [place] BASE EXCESS 0 mmol/L Normal -2-3 [facility] Comment on above: Performed By: #### 0 0121, 55456, 08699, 21580, 56372 #### [facility] [address] [place] [address], [place] DELIVERY SYSTEMS MV Normal [facility] Comment on above: Performed By: #### 0 0121, 04832, 04378, 36984, 05468 #### [facility] [address] [place] [address], [place] FIO2 50 % Normal [facility] Comment on above: Performed By: #### 0 0121, 55397, 80458, 92004, 70992 #### [facility] [address] [place] [address], [place] HCO3 (Bld) [Moles/Vol] 23 mmol/L Normal 21-28 [facility] Comment on above: Performed By: #### 0 0121, 72884, 41864, 29182, 55875 #### [facility] [address] [place] [address], [place] IONIZED CALCIUM 1.14 mmol/L Normal 1.13-1.32 [facility] Comment on above: Performed By: #### 0 0121, 61695, 42563, 12978, 11842 #### [facility] [address] [place] [address], [place] MIN VOLUME 13.3 Normal [facility] Comment on above: Performed By: #### 0 0121, 00578, 49375, 37656, 79777 #### [facility] [address] [place] [address], [place] MODALITY AC Normal [facility] Comment on above: Performed By: #### 0 0121, 92282, 00499, 47507, 61085 #### [facility] [address] [place] [address], [place] Oxygen (Bld) [Partial pressure] 71 mm[Hg] Low 83-108 [facility] Comment on above: Performed By: #### 0 0121, 02684, 13358, 09713, 31795 #### [facility] [address] [place] [address], [place] Oxygen saturation in Blood 92.6 % Low 94.0-97.0 [facility] Comment on above: Performed By: #### 0 0121, 85364, 57082, 64361, 26207 #### [facility] [address] [place] [address], [place] PCO2 31 mmHg Low 35-45 [facility] Comment on above: Performed By: #### 0 0121, 80924, 45430, 71883, 00350 #### [facility] [address] [place] [address], [facility] PEEP 8.0 CMH20 Normal [facility] Comment on above: Performed By: #### 0 0121, 43714, 47931, 69097, 16839 #### [facility] [address] [place] [address], [facility] PF RATIO 142 mmHg Normal [facility] Comment on above: Performed By: #### 0 0121, 73318, 86870, 00200, 38354 #### [facility] [address] [place] [address], [facility] pH (Bld) 7.47 [pH] High 7.35-7.45 [facility] Comment on above: Result Comment: KINJAL REYNOSO NOTE: Effective 12/02/18, reference ranges for Respiratory GEM analyzers running arterial blood have been updated to reflect the cafeteria assistant's published reference ranges. Performed By: #### 0 0121, 48692, 87729, 05705, 75468 #### [facility] [address] [place] [address], [facility] TIDAL VOLUME (VT) CC 700 cc Normal [facility] Comment on above: Performed By: #### 0 0121, 39809, 76301, 16632, 57923 #### [facility] [address] [place] [address], [facility] BASIC METABOLIC PANELon - Calcium [Mass/Vol] 8.6 mg/dL Normal 8.6-10.3 [facility] Comment on above: Order Comment: << On admission If not done in ED>> No: Do not add to previous draw Performed By: #### 0 0121, 34332, 50058, 04572, 03422 #### [facility] [address] [place] [address], [facility] Chloride [Moles/Vol] 104 mmol/L Normal 98-107 [facility] Comment on above: Order Comment: << On admission If not done in ED>> No: Do not add to previous draw Performed By: #### 0 0121, 85398, 53333, 15760, 57824 #### [facility] [address] [place] [address], [facility] CO2 [Moles/Vol] 26 mmol/L Normal 21-31 [facility] Comment on above: Order Comment: << On admission If not done in ED>> No: Do not add to previous draw Performed By: #### 0 0121, 14427, 19781, 74625, 59649 #### [facility] [address] [place] [address], [facility] Creatinine [Mass/Vol] 1.48 mg/dL High 0.70-1.30 [facility] Comment on above: Order Comment: << On admission If not done in ED>> No: Do not add to previous draw Performed By: #### 0 0121, 15703, 21841, 39725, 18780 #### [facility] [address] [place] [address], [facility] GFR/1.73 sq M predicted among blacks MDRD (S/P/Bld) [Vol rate/Area] 60 ml/min/1.73sq m Abnormal >60 [facility] Comment on above: Order Comment: << On admission If not done in ED>> No: Do not add to previous draw Performed By: #### 0 0121, 38219, 03297, 60148, 76391 #### [facility] [address] [place] [address], [facility] GFR/1.73 sq M predicted among non-blacks MDRD (S/P/Bld) [Vol rate/Area] 50 ml/min/1.73sq m Abnormal >60 [facility] Comment on above: Order Comment: << On admission If not done in ED>> No: Do not add to previous draw Performed By: #### 0 0121, 84604, 86894, 55934, 90925 #### [facility] [address] [place] [address], [facility] Glucose [Mass/Vol] 115 mg/dL High 70-100 [facility] Comment on above: Order Comment: << On admission If not done in ED>> No: Do not add to previous draw Performed By: #### 0 0121, 11721, 83644, 03689, 69204 #### [facility] [address] [place] [address], [facility] Potassium [Moles/Vol] 3.4 mmol/L Low 3.5-5.1 [facility] Comment on above: Order Comment: << On admission If not done in ED>> No: Do not add to previous draw Performed By: #### 0 0121, 27328, 71933, 14992, 21530 #### [facility] [address] [place] [address], [place] Sodium [Moles/Vol] 138 mmol/L Normal 136-145 [facility] Comment on above: Order Comment: << On admission If not done in ED>> No: Do not add to previous draw Performed By: #### 0 0121, 67308, 34920, 53525, 92615 #### [facility] [address] [place] [address], [place] Urea nitrogen [Mass/Vol] 23 mg/dL Normal 7-25 [facility] Comment on above: Order Comment: << On admission If not done in ED>> No: Do not add to previous draw Performed By: #### 0 0121, 73832, 48875, 94348, 96089 #### [facility] [address] [place] [address], [place] Calcium [Mass/Vol] 8.1 mg/dL Low 8.6-10.3 [facility] Comment on above: Order Comment: << On admission If not done in ED>> No: Do not add to previous draw Performed By: #### 0 0121, 52217, 45347, 29280, 66273 #### [facility] [address] [place] [address], [facility] Chloride [Moles/Vol] 105 mmol/L Normal 98-107 [facility] Comment on above: Order Comment: << On admission If not done in ED>> No: Do not add to previous draw Performed By: #### 0 0121, 79732, 40584, 32029, 84691 #### [facility] [address] [place] [address], [place] CO2 [Moles/Vol] 26 mmol/L Normal 21-31 [facility] Comment on above: Order Comment: << On admission If not done in ED>> No: Do not add to previous draw Performed By: #### 0 0121, 42618, 48051, 58360, 64336 #### [facility] [address] [place] [address], [facility] Creatinine [Mass/Vol] 1.37 mg/dL High 0.70-1.30 [facility] Comment on above: Order Comment: << On admission If not done in ED>> No: Do not add to previous draw Performed By: #### 0 0121, 72124, 64998, 82299, 02241 #### [facility] [address] [place] [address], [place] GFR/1.73 sq M predicted among blacks MDRD (S/P/Bld) [Vol rate/Area] mL/min/{1.73_m2} Normal >60 [facility] Comment on above: Order Comment: << On admission If not done in ED>> No: Do not add to previous draw Performed By: #### 0 0121, 27513, 96309, 07583, 35033 #### [facility] [address] [place] [address], [place] GFR/1.73 sq M predicted among non-blacks MDRD (S/P/Bld) [Vol rate/Area] 54 ml/min/1.73sq m Abnormal >60 [facility] Comment on above: Order Comment: << On admission If not done in ED>> No: Do not add to previous draw Performed By: #### 0 0121, 80460, 87331, 64038, 71317 #### [facility] [address] [place] [address], [place] Glucose [Mass/Vol] 113 mg/dL High 70-100 [facility] Comment on above: Order Comment: << On admission If not done in ED>> No: Do not add to previous draw Performed By: #### 0 0121, 49604, 21549, 24110, 53831 #### [facility] [address] [place] [address], [facility] Potassium [Moles/Vol] 3.3 mmol/L Low 3.5-5.1 [facility] Comment on above: Order Comment: << On admission If not done in ED>> No: Do not add to previous draw Performed By: #### 0 0121, 77758, 27208, 31664, 43960 #### [facility] [address] [place] [address], [place] Sodium [Moles/Vol] 138 mmol/L Normal 136-145 [facility] Comment on above: Order Comment: << On admission If not done in ED>> No: Do not add to previous draw Performed By: #### 0 0121, 57997, 48186, 41270, 39031 #### [facility] [address] [place] [address], [place] Urea nitrogen [Mass/Vol] 19 mg/dL Normal 7-25 [facility] Comment on above: Order Comment: << On admission If not done in ED>> No: Do not add to previous draw Performed By: #### 0 0121, 09053, 93596, 73357, 37264 #### [facility] [address] [place] [address], [facility] Calcium [Mass/Vol] 7.4 mg/dL Low 8.6-10.3 [facility] Comment on above: Order Comment: << On admission If not done in ED>> No: Do not add to previous draw Performed By: #### 0 0121, 52448, 95768, 18845, 32914 #### [facility] [address] [place] [address], [facility] Chloride [Moles/Vol] 109 mmol/L High 98-107 [facility] Comment on above: Order Comment: << On admission If not done in ED>> No: Do not add to previous draw Performed By: #### 0 0121, 64486, 15021, 71200, 23590 #### [facility] [address] [place] [address], [facility] CO2 [Moles/Vol] 21 mmol/L Normal 21-31 [facility] Comment on above: Order Comment: << On admission If not done in ED>> No: Do not add to previous draw Performed By: #### 0 0121, 55869, 55573, 51203, 53430 #### [facility] [address] [place] [address], [facility] Creatinine [Mass/Vol] 1.22 mg/dL Normal 0.70-1.30 [facility] Comment on above: Order Comment: << On admission If not done in ED>> No: Do not add to previous draw Performed By: #### 0 0121, 60208, 44591, 49767, 69654 #### [facility] [address] [place] [address], [facility] GFR/1.73 sq M predicted among blacks MDRD (S/P/Bld) [Vol rate/Area] mL/min/{1.73_m2} Normal >60 [facility] Comment on above: Order Comment: << On admission If not done in ED>> No: Do not add to previous draw Performed By: #### 0 0121, 50827, 36410, 78259, 64488 #### [facility] [address] [place] [address], [facility] GFR/1.73 sq M predicted among non-blacks MDRD (S/P/Bld) [Vol rate/Area] mL/min/{1.73_m2} Normal >60 [facility] Comment on above: Order Comment: << On admission If not done in ED>> No: Do not add to previous draw Performed By: #### 0 0121, 19138, 51943, 43380, 93335 #### [facility] [address] [place] [address], [place] Glucose [Mass/Vol] 129 mg/dL High 70-100 [facility] Comment on above: Order Comment: << On admission If not done in ED>> No: Do not add to previous draw Performed By: #### 0 0121, 42743, 79321, 79850, 20052 #### [facility] [address] [place] [address], [place] Potassium [Moles/Vol] 3.1 mmol/L Low 3.5-5.1 [facility] Comment on above: Order Comment: << On admission If not done in ED>> No: Do not add to previous draw Performed By: #### 0 0121, 92017, 72582, 05711, 42558 #### [facility] [address] [place] [address], [place] Sodium [Moles/Vol] 139 mmol/L Normal 136-145 [facility] Comment on above: Order Comment: << On admission If not done in ED>> No: Do not add to previous draw Performed By: #### 0 0121, 34918, 60357, 44450, 65894 #### [facility] [address] [place] [address], [place] Urea nitrogen [Mass/Vol] 17 mg/dL Normal 7-25 [facility] Comment on above: Order Comment: << On admission If not done in ED>> No: Do not add to previous draw Performed By: #### 0 0121, 86367, 13058, 03634, 89848 #### [facility] [address] CBC COMPLETE BLOOD COUNTon 0 - Erythrocyte distribution width (RBC) [Ratio] 13.5 % Normal 11.5-15.0 [facility] Comment on above: Order Comment: << On admission If not done in ED>> No: Do not add to previous draw Performed By: #### 0 0121, 63727, 66578, 69895, 66185 #### [facility] [address] [place] [address], [facility] Hematocrit (Bld) [Volume fraction] 33.7 % Low 39.0-50.0 [facility] Comment on above: Order Comment: << On admission If not done in ED>> No: Do not add to previous draw Performed By: #### 0 0121, 76098, 07201, 29997, 05270 #### [facility] [address] [place] [address], [facility] Hemoglobin (Bld) [Mass/Vol] 10.9 g/dL Low 13.0-17.0 [facility] Comment on above: Order Comment: << On admission If not done in ED>> No: Do not add to previous draw Performed By: #### 0 0121, 58236, 09929, 83362, 45940 #### [facility] [address] [place] [address], [facility] MCH (RBC) [Entitic mass] 29.3 pg Normal 27.0-33.0 [facility] Comment on above: Order Comment: << On admission If not done in ED>> No: Do not add to previous draw Performed By: #### 0 0121, 06965, 00737, 50141, 21894 #### [facility] [address] MCHC (RBC) [Mass/Vol] 32.3 g/dL Normal 32.0-35.0 [facility] Comment on above: Order Comment: << On admission If not done in ED>> No: Do not add to previous draw Performed By: #### 0 0121, 26050, 63728, 53996, 54502 #### [facility] [address] [place] [address], [facility] MCV (RBC) [Entitic vol] 90.6 fL Normal 82.0-98.0 [facility] Comment on above: Order Comment: << On admission If not done in ED>> No: Do not add to previous draw Performed By: #### 0 0121, 29131, 93119, 47273, 39929 #### [facility] [address] Nucleated RBC/100 WBC (Bld) [Ratio] 0 % Normal 0-0 [facility] Comment on above: Order Comment: << On admission If not done in ED>> No: Do not add to previous draw Performed By: #### 0 0121, 66211, 58636, 59622, 20205 #### [facility] [address] [place] [address], [facility] PLAT CNT 100 10*3/uL Low 150-400 [facility] Comment on above: Order Comment: << On admission If not done in ED>> No: Do not add to previous draw Performed By: #### 0 0121, 39109, 50860, 62476, 91962 #### [facility] [address] [place] [address], [facility] RBC (Bld) [#/Vol] 3.72 10*6/uL Low 4.20-5.70 [facility] Comment on above: Order Comment: << On admission If not done in ED>> No: Do not add to previous draw Performed By: #### 0 0121, 72715, 30697, 63104, 06482 #### [facility] [address] [place] [address], [facility] WBC (Bld) [#/Vol] 17.24 10*3/uL High 4.00-10.60 [facility] Comment on above: Order Comment: << On admission If not done in ED>> No: Do not add to previous draw Performed By: #### 0 0121, 41214, 65102, 34677, 92095 #### [facility] [address] Erythrocyte distribution width (RBC) [Ratio] 13.5 % Normal 11.5-15.0 [facility] Comment on above: Order Comment: << On admission If not done in ED>> No: Do not add to previous draw Performed By: #### 0 0121, 14404, 58922, 44849, 92550 #### [facility] [address] Hematocrit (Bld) [Volume fraction] 35.2 % Low 39.0-50.0 [facility] Comment on above: Order Comment: << On admission If not done in ED>> No: Do not add to previous draw Performed By: #### 0 0121, 42942, 71582, 65539, 83848 #### [facility] [address] [facility] Hemoglobin (Bld) [Mass/Vol] 11.5 g/dL Low 13.0-17.0 [facility] Comment on above: Order Comment: << On admission If not done in ED>> No: Do not add to previous draw Performed By: #### 0 0121, 81153, 25206, 59755, 80050 #### [facility] [address] [place] [address], [facility] IMM PLATELET FRAC 4.3 % Normal 0.8-6.3 [facility] Comment on above: Order Comment: << On admission If not done in ED>> No: Do not add to previous draw Performed By: #### 0 0121, 96600, 73785, 00402, 57967 #### [facility] [address] [place] [address], [facility] MCH (RBC) [Entitic mass] 29.4 pg Normal 27.0-33.0 [facility] Comment on above: Order Comment: << On admission If not done in ED>> No: Do not add to previous draw Performed By: #### 0 0121, 01161, 09325, 85034, 05232 #### [facility] [address] MCHC (RBC) [Mass/Vol] 32.7 g/dL Normal 32.0-35.0 [facility] Comment on above: Order Comment: << On admission If not done in ED>> No: Do not add to previous draw Performed By: #### 0 0121, 74932, 57886, 75663, 87873 #### [facility] [address] MCV (RBC) [Entitic vol] 90.0 fL Normal 82.0-98.0 [facility] Comment on above: Order Comment: << On admission If not done in ED>> No: Do not add to previous draw Performed By: #### 0 0121, 14025, 10338, 12091, 35628 #### [facility] [address] Nucleated RBC/100 WBC (Bld) [Ratio] 0 % Normal 0-0 [facility] Comment on above: Order Comment: << On admission If not done in ED>> No: Do not add to previous draw Performed By: #### 0 0121, 74879, 76871, 17092, 43692 #### [facility] [address] [place] [address], [facility] PLAT CNT 99 10*3/uL Low 150-400 [facility] Comment on above: Order Comment: << On admission If not done in ED>> No: Do not add to previous draw Performed By: #### 0 0121, 99923, 76065, 72756, 17795 #### [facility] [address] [place] [address], [facility] RBC (Bld) [#/Vol] 3.91 10*6/uL Low 4.20-5.70 [facility] Comment on above: Order Comment: << On admission If not done in ED>> No: Do not add to previous draw Performed By: #### 0 0121, 18450, 34015, 42361, 35865 #### [facility] [address] [place] [address], [facility] WBC (Bld) [#/Vol] 19.55 10*3/uL High 4.00-10.60 [facility] Comment on above: Order Comment: << On admission If not done in ED>> No: Do not add to previous draw Performed By: #### 0 0121, 90450, 15970, 93151, 98057 #### [facility] [address] [place] [address], [facility] Erythrocyte distribution width (RBC) [Ratio] 13.5 % Normal 11.5-15.0 [facility] Comment on above: Order Comment: << On admission If not done in ED>> No: Do not add to previous draw Performed By: #### 0 0121, 27197, 78294, 18622, 17534 #### [facility] [address] [place] [address], [place] Hematocrit (Bld) [Volume fraction] 38.1 % Low 39.0-50.0 [facility] Comment on above: Order Comment: << On admission If not done in ED>> No: Do not add to previous draw Performed By: #### 0 0121, 20149, 13565, 90515, 70559 #### [facility] [address] [place] [address], [place] Hemoglobin (Bld) [Mass/Vol] 12.2 g/dL Low 13.0-17.0 [facility] Comment on above: Order Comment: << On admission If not done in ED>> No: Do not add to previous draw Performed By: #### 0 0121, 27385, 30710, 77344, 15782 #### [facility] [address] IMM PLATELET FRAC 3.8 % Normal 0.8-6.3 [facility] Comment on above: Order Comment: << On admission If not done in ED>> No: Do not add to previous draw Performed By: #### 0 0121, 54355, 96178, 54005, 90818 #### [facility] [address] MCH (RBC) [Entitic mass] 29.0 pg Normal 27.0-33.0 [facility] Comment on above: Order Comment: << On admission If not done in ED>> No: Do not add to previous draw Performed By: #### 0 0121, 87233, 26582, 15676, 25030 #### [facility] [address] MCHC (RBC) [Mass/Vol] 32.0 g/dL Normal 32.0-35.0 [facility] Comment on above: Order Comment: << On admission If not done in ED>> No: Do not add to previous draw Performed By: #### 0 0121, 00805, 91181, 05495, 88443 #### [facility] [address] [place] [address], [facility] MCV (RBC) [Entitic vol] 90.7 fL Normal 82.0-98.0 [facility] Comment on above: Order Comment: << On admission If not done in ED>> No: Do not add to previous draw Performed By: #### 0 0121, 29461, 61624, 70776, 97293 #### [facility] [address] [place] [address], [facility] Nucleated RBC/100 WBC (Bld) [Ratio] 0 % Normal 0-0 [facility] Comment on above: Order Comment: << On admission If not done in ED>> No: Do not add to previous draw Performed By: #### 0 0121, 43923, 24506, 40603, 26242 #### [facility] [address] [place] [address], [facility] PLAT CNT 112 10*3/uL Low 150-400 [facility] Comment on above: Order Comment: << On admission If not done in ED>> No: Do not add to previous draw Performed By: #### 0 0121, 11210, 44965, 45775, 12346 #### [facility] [address] [place] [address], [facility] RBC (Bld) [#/Vol] 4.20 10*6/uL Normal 4.20-5.70 [facility] Comment on above: Order Comment: << On admission If not done in ED>> No: Do not add to previous draw Performed By: #### 0 0121, 93771, 94123, 22316, 84667 #### [facility] [address] [place] [address], [facility] WBC (Bld) [#/Vol] 21.05 10*3/uL High 4.00-10.60 [facility] Comment on above: Order Comment: << On admission If not done in ED>> No: Do not add to previous draw Performed By: #### 0 0121, 90885, 56150, 39299, 27709 #### [facility] [address] [place] [address], [facility] COOXIMETRYon 03-21-2019 COHB 1 % Normal [facility] Comment on above: Performed By: #### 0 0121, 79694, 58646, 46386, 73563 #### [facility] [address] [place] [address], [place] METHB 1 % Normal [facility] Comment on above: Performed By: #### 0 0121, 28765, 58098, 91708, 65200 #### [facility] [address] [place] [address], [place] Oxygen saturation in Blood 59.8 % Low 65.0-75.0 [facility] Comment on above: Performed By: #### 0 0121, 98589, 13747, 64130, 83970 #### [facility] [address] [place] [address], [place] THB 10.9 g/dL Normal [facility] Comment on above: Performed By: #### 0 0121, 91241, 32195, 72759, 65246 #### [facility] [address] [place] [address], [place] COHB 2 % Normal [facility] Comment on above: Performed By: #### 0 0121, 83082, 25201, 79005, 92796 #### [facility] [address] [place] [address], [place] METHB 1 % Normal [facility] Comment on above: Performed By: #### 0 0121, 94084, 68635, 45267, 44976 #### [facility] [address] [place] [address], [place] Oxygen saturation in Blood 70.2 % Normal 65.0-75.0 [facility] Comment on above: Performed By: #### 0 0121, 07295, 19875, 75310, 10194 #### [facility] [address] [place] [address], [place] THB 11.5 g/dL Normal [facility] Comment on above: Performed By: #### 0 0121, 98168, 43733, 53222, 82893 #### [facility] [address] [place] [address], [place] MAGNESIUM BLOODon 03-21-2019 Magnesium [Mass/Vol] 2.1 mg/dL Normal 1.9-2.7 [facility] Comment on above: Order Comment: << On admission If not done in ED>> No: Do not add to previous draw Performed By: #### 0 0121, 23825, 53373, 42487, 47413 #### [facility] [address] [place] [address], [place] Magnesium [Mass/Vol] 2.1 mg/dL Normal 1.9-2.7 [facility] Comment on above: Order Comment: << On admission If not done in ED>> No: Do not add to previous draw Performed By: #### 0 0121, 04862, 27114, 15566, 10587 #### [facility] [address] [place] [address], [place] Magnesium [Mass/Vol] 2.2 mg/dL Normal 1.9-2.7 [facility] Comment on above: Order Comment: << On admission If not done in ED>> No: Do not add to previous draw Performed By: #### 0 0121, 38103, 72568, 52419, 18998 #### [facility] [address] [place] [address], [place] POC GLUCOSE LABon 03-21-2019 Glucose [Mass/Vol] 107 mg/dL High 70-100 [facility] Comment on above: Performed By: #### 0 0121, 21216, 26333, 39045, 56779 #### [facility] [address] [place] [address], [place] Glucose [Mass/Vol] 103 mg/dL High 70-100 [facility] Comment on above: Performed By: #### 0 0121, 23486, 44951, 92336, 06776 #### [facility] [address] [place] [address], [place] Glucose [Mass/Vol] 112 mg/dL High 70-100 [facility] Comment on above: Performed By: #### 0 0121, 53407, 98147, 54133, 12222 #### [facility] [address] [place] [address], [place] Glucose [Mass/Vol] 127 mg/dL High 70-100 [facility] Comment on above: Performed By: #### 0 0121, 03544, 01664, 30258, 93074 #### [facility] [address] [place] [address], [place] Glucose [Mass/Vol] 95 mg/dL Normal 70-100 [facility] Comment on above: Performed By: #### 0 0121, 24768, 19879, 64527, 27380 #### [facility] [address] [place] [address], [place] Glucose [Mass/Vol] 104 mg/dL High 70-100 [facility] Comment on above: Performed By: #### 0 0121, 84277, 49655, 84893, 77073 #### [facility] [address] [place] [address], [place] Glucose [Mass/Vol] 98 mg/dL Normal 70-100 [facility] Comment on above: Performed By: #### 0 0121, 50618, 13683, 47827, 33812 #### [facility] [address] [place] [address], [place] Glucose [Mass/Vol] 113 mg/dL High 70-100 [facility] Comment on above: Performed By: #### 0 0121, 10810, 15318, 61238, 01737 #### [facility] [address] [place] [address], [place] Glucose [Mass/Vol] 130 mg/dL High 70-100 [facility] Comment on above: Performed By: #### 0 0121, 49883, 12952, 23241, 78834 #### [facility] [address] [place] [address], [place] Glucose [Mass/Vol] 130 mg/dL High 70-100 [facility] Comment on above: Performed By: #### 0 0121, 46156, 83252, 66072, 61312 #### [facility] [address] [place] [address], [place] Glucose [Mass/Vol] 129 mg/dL High 70-100 [facility] Comment on above: Performed By: #### 0 0121, 93372, 38119, 86395, 66212 #### [facility] [address] [place] [address], [place] Glucose [Mass/Vol] 108 mg/dL High 70-100 [facility] Comment on above: Performed By: #### 0 0121, 94445, 78537, 52247, 42748 #### [facility] [address] [place] [address], [place] Glucose [Mass/Vol] 101 mg/dL High 70-100 [facility] Comment on above: Performed By: #### 0 0121, 68091, 35992, 19578, 72142 #### [facility] [address] [place] [address], [facility] PORTABLE CHEST 1 VIEWon 03-01 PORTABLE CHEST 1 VIEW [facility] Department of Radiology [address] [place] [id number] ===== Patient Name: TRACIE CRAIN : 1965 Sex: M Age: Race: NA Pt. 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 COMPARISON: 03/20/2019. FINDINGS: ET tube is without significant change, in satisfactory position. Enteric tube is seen traversing below diaphragm and out of field of view, in satisfactory position. [place] catheter is again seen with tip projecting [...] findings. Electronically signed by:Yenni Osuna. Transcribed by: [email or web address], User Resident: CYNTHIA FINLEY Electronically Signed by: YENNI OSUNA @ 03/22/2019 01:07 PM I personally read this/these film(s) with this resident Normal [facility] Comment on above: Order Comment: << On admission If not done in ED>> No: Do not add to previous draw ARTERIAL BLOOD GAS WITH ICAo n 03-20-2019 BASE EXCESS -4 mmol/L Low -2-3 [facility] Comment on above: Performed By: #### 0 0121, 62994, 29366, 98082, 82200 #### [facility] [address] [place] [address], [facility] DELIVERY SYSTEMS VENTILATOR Normal [facility] Comment on above: Performed By: #### 0 0121, 26360, 66373, 48050, 82124 #### [facility] [address] [place] [address], [facility] FIO2 50 % Normal [facility] Comment on above: Performed By: #### 0 0121, 37741, 61391, 11418, 28118 #### [facility] [address] [place] [address], [facility] HCO3 (Bld) [Moles/Vol] 19 mmol/L Low 21-28 [facility] Comment on above: Performed By: #### 0 0121, 67302, 47932, 51182, 66813 #### [facility] [address] [place] [address], [place] IONIZED CALCIUM 1.06 mmol/L Low 1.13-1.32 [facility] Comment on above: Performed By: #### 0 0121, 87414, 43428, 66187, 23264 #### [facility] [address] [place] [address], [place] MIN VOLUME 14.2 Normal [facility] Comment on above: Performed By: #### 0 0121, 60716, 71630, 56206, 59070 #### [facility] [address] [place] [address], [place] MODALITY AC-ASSIST CONTROL Normal [facility] Comment on above: Performed By: #### 0 0121, 29709, 82383, 74269, 05493 #### [facility] [address] [place] [address], [facility] Oxygen (Bld) [Partial pressure] 82 mm[Hg] Low 83-108 [facility] Comment on above: Performed By: #### 0 0121, 05371, 71295, 11552, 66340 #### [facility] [address] [place] [address], [place] Oxygen saturation in Blood 94.4 % Normal 94.0-97.0 [facility] Comment on above: Performed By: #### 0 0121, 69187, 31560, 24639, 68414 #### [facility] [address] [place] [address], [place] PCO2 27 mmHg Low 35-45 [facility] Comment on above: Performed By: #### 0 0121, 34652, 65153, 56943, 17687 #### [facility] [address] [place] [address], [place] PEEP 8.0 CMH20 Normal [facility] Comment on above: Performed By: #### 0 0121, 13895, 59575, 20332, 35901 #### [facility] [address] [place] [address], [place] pH (Bld) 7.45 [pH] Normal 7.35-7.45 [facility] Comment on above: Result Comment: KINJAL REYNOSO NOTE: Effective 12/02/18, reference ranges for Respiratory GEM analyzers running arterial blood have been updated to reflect the cafeteria assistant's published reference ranges. Performed By: #### 0 0121, 24327, 73801, 61866, 15775 #### [facility] [address] [place] [address], [place] TIDAL VOLUME (VT) CC 700 cc Normal [facility] Comment on above: Performed By: #### 0 0121, 75776, 37166, 76103, 19058 #### [facility] [address] [place] [address], [facility] BASE EXCESS -2 mmol/L Normal -2-3 [facility] Comment on above: Performed By: #### 0 0121, 70024, 80202, 78831, 05101 #### [facility] [address] [place] [address], [facility] DELIVERY SYSTEMS MV Normal [facility] Comment on above: Performed By: #### 0 0121, 30547, 90946, 62733, 23525 #### [facility] [address] [place] [address], [facility] FIO2 100 % Normal [facility] Comment on above: Performed By: #### 0 0121, 92523, 72722, 48123, 82090 #### [facility] [address] [place] [address], [facility] HCO3 (Bld) [Moles/Vol] 22 mmol/L Normal 21-28 [facility] Comment on above: Performed By: #### 0 0121, 17863, 48040, 20385, 68887 #### [facility] [address] [place] [address], [facility] IONIZED CALCIUM 1.18 mmol/L Normal 1.13-1.32 [facility] Comment on above: Performed By: #### 0 0121, 23603, 26408, 83589, 21646 #### [facility] [address] [place] [address], [facility] MIN VOLUME 13.0 Normal [facility] Comment on above: Performed By: #### 0 0121, 71618, 92055, 42648, 55737 #### [facility] [address] [place] [address], [facility] MODALITY AC Normal [facility] Comment on above: Performed By: #### 0 0121, 50889, 17381, 81117, 18605 #### [facility] [address] [place] [address], [place] Oxygen (Bld) [Partial pressure] 109 mm[Hg] Critically high 83-108 [facility] Comment on above: Performed By: #### 0 0121, 05166, 92121, 81779, 19215 #### [facility] [address] [place] [address], [place] Oxygen saturation in Blood 95.6 % Normal 94.0-97.0 [facility] Comment on above: Performed By: #### 0 0121, 79927, 48202, 35345, 63492 #### [facility] [address] [place] [address], [place] PCO2 33 mmHg Low 35-45 [facility] Comment on above: Performed By: #### 0 0121, 67119, 53065, 11939, 76514 #### [facility] [address] [place] [address], [place] PEEP 10.0 CMH20 Normal [facility] Comment on above: Performed By: #### 0 0121, 44030, 68543, 26026, 94573 #### [facility] [address] [place] [address], [place] PF RATIO 109 mmHg Normal [facility] Comment on above: Performed By: #### 0 0121, 53185, 73305, 40715, 68837 #### [facility] [address] [place] [address], [place] pH (Bld) 7.43 [pH] Normal 7.35-7.45 [facility] Comment on above: Result Comment: KINJAL REYNOSO NOTE: Effective 12/02/18, reference ranges for Respiratory GEM analyzers running arterial blood have been updated to reflect the cafeteria assistant's published reference ranges. Performed By: #### 0 0121, 07437, 28268, 98825, 85317 #### [facility] [address] [place] [address], [place] TIDAL VOLUME (VT) CC 700 cc Normal [facility] Comment on above: Performed By: #### 0 0121, 18033, 59802, 36104, 10224 #### [facility] [address] [place] [address], [facility] BASE EXCESS -4 mmol/L Low -2-3 [facility] Comment on above: Performed By: #### 0 0121, 56438, 28361, 90945, 58616 #### [facility] [address] [place] [address], [facility] DELIVERY SYSTEMS VENTILATOR Normal [facility] Comment on above: Performed By: #### 0 0121, 52356, 17948, 95119, 25856 #### [facility] [address] [place] [address], [facility] FIO2 100 % Normal [facility] Comment on above: Performed By: #### 0 0121, 40911, 03754, 25006, 04613 #### [facility] [address] [place] [address], [facility] HCO3 (Bld) [Moles/Vol] 20 mmol/L Low 21-28 [facility] Comment on above: Performed By: #### 0 0121, 63551, 59129, 40426, 68379 #### [facility] [address] [place] [address], [facility] IONIZED CALCIUM 1.23 mmol/L Normal 1.13-1.32 [facility] Comment on above: Performed By: #### 0 0121, 39640, 71426, 07157, 48515 #### [facility] [address] [place] [address], [place] MIN VOLUME 15.1 Normal [facility] Comment on above: Performed By: #### 0 0121, 73672, 76333, 59800, 68489 #### [facility] [address] [place] [address], [facility] MODALITY AC-ASSIST CONTROL Normal [facility] Comment on above: Performed By: #### 0 0121, 42630, 09371, 77207, 50633 #### [facility] [address] [place] [address], [place] Oxygen (Bld) [Partial pressure] 90 mm[Hg] Normal 83-108 [facility] Comment on above: Performed By: #### 0 0121, 28623, 64120, 65398, 56253 #### [facility] [address] [place] [address], [facility] Oxygen saturation in Blood 95.1 % Normal 94.0-97.0 [facility] Comment on above: Performed By: #### 0 0121, 75582, 46441, 23218, 52451 #### [facility] [address] [facility] [place] [address], [facility] PCO2 32 mmHg Low 35-45 [facility] Comment on above: Performed By: #### 0 0121, 84822, 31941, 91781, 53165 #### [facility] [address] [facility] [place] [address], [facility] PEEP 10.0 CMH20 Normal [facility] Comment on above: Performed By: #### 0 0121, 78074, 51941, 40219, 47668 #### [facility] [address] [facility] [place] [address], [place] PF RATIO 900 mmHg Normal [facility] Comment on above: Performed By: #### 0 0121, 31984, 61270, 87313, 56258 #### [facility] [address] [place] [address], [place] pH (Bld) 7.40 [pH] Normal 7.35-7.45 [facility] Comment on above: Result Comment: KINJAL REYNOSO NOTE: Effective 12/02/18, reference ranges for Respiratory GEM analyzers running arterial blood have been updated to reflect the cafeteria assistant's published reference ranges. Performed By: #### 0 0121, 31739, 99305, 22524, 30553 #### [facility] [address] [place] [address], [facility] TIDAL VOLUME (VT) CC 700 cc Normal [facility] Comment on above: Performed By: #### 0 0121, 40476, 79828, 30400, 23594 #### [facility] [address] [place] [address], [facility] BASIC METABOLIC PANELon 06-2 Calcium [Mass/Vol] 8.1 mg/dL Low 8.6-10.3 [facility] Comment on above: Order Comment: << On admission If not done in ED>> No: Do not add to previous draw Performed By: #### 0 0121, 85383, 13135, 73821, 31434 #### [facility] [address] [place] [address], [facility] Chloride [Moles/Vol] 112 mmol/L High 98-107 [facility] Comment on above: Order Comment: << On admission If not done in ED>> No: Do not add to previous draw Performed By: #### 0 0121, 74058, 67659, 48353, 78655 #### [facility] [address] [place] [address], [facility] CO2 [Moles/Vol] 24 mmol/L Normal 21-31 [facility] Comment on above: Order Comment: << On admission If not done in ED>> No: Do not add to previous draw Performed By: #### 0 0121, 79171, 58316, 09054, 99060 #### [facility] [address] [place] [address], [facility] Creatinine [Mass/Vol] 0.97 mg/dL Normal 0.70-1.30 [facility] Comment on above: Order Comment: << On admission If not done in ED>> No: Do not add to previous draw Performed By: #### 0 0121, 29637, 00562, 90287, 54671 #### [facility] [address] [place] [address], [place] GFR/1.73 sq M predicted among blacks MDRD (S/P/Bld) [Vol rate/Area] mL/min/{1.73_m2} Normal >60 [facility] Comment on above: Order Comment: << On admission If not done in ED>> No: Do not add to previous draw Performed By: #### 0 0121, 17440, 27586, 11902, 82544 #### [facility] [address] [place] [address], [place] GFR/1.73 sq M predicted among non-blacks MDRD (S/P/Bld) [Vol rate/Area] mL/min/{1.73_m2} Normal >60 [facility] Comment on above: Order Comment: << On admission If not done in ED>> No: Do not add to previous draw Performed By: #### 0 0121, 07166, 31318, 84147, 04894 #### [facility] [address] [place] [address], [place] Glucose [Mass/Vol] 134 mg/dL High 70-100 [facility] Comment on above: Order Comment: << On admission If not done in ED>> No: Do not add to previous draw Performed By: #### 0 0121, 87973, 14598, 51313, 53637 #### [facility] [address] [place] [address], [place] Potassium [Moles/Vol] 3.9 mmol/L Normal 3.5-5.1 [facility] Comment on above: Order Comment: << On admission If not done in ED>> No: Do not add to previous draw Performed By: #### 0 0121, 31417, 51446, 87392, 85843 #### [facility] [address] [place] [address], [place] Sodium [Moles/Vol] 142 mmol/L Normal 136-145 [facility] Comment on above: Order Comment: << On admission If not done in ED>> No: Do not add to previous draw Performed By: #### 0 0121, 10861, 69586, 30069, 98331 #### [facility] [address] [place] [address], [place] Urea nitrogen [Mass/Vol] 16 mg/dL Normal 7-25 [facility] Comment on above: Order Comment: << On admission If not done in ED>> No: Do not add to previous draw Performed By: #### 0 0121, 34811, 69876, 96756, 26427 #### [facility] [address] [place] [address], [place] Chloride [Moles/Vol] 113 mmol/L High 98-107 [facility] Comment on above: Order Comment: << On admission If not done in ED>> No: Do not add to previous draw Performed By: #### 0 0121, 98392, 19124, 71922, 52677 #### [facility] [address] [place] [address], [place] CO2 [Moles/Vol] 23 mmol/L Normal 21-31 [facility] Comment on above: Order Comment: << On admission If not done in ED>> No: Do not add to previous draw Performed By: #### 0 0121, 80208, 38114, 33042, 91973 #### [facility] [address] [place] [address], [place] Creatinine [Mass/Vol] 1.11 mg/dL Normal 0.70-1.30 [facility] Comment on above: Order Comment: << On admission If not done in ED>> No: Do not add to previous draw Performed By: #### 0 0121, 77288, 38281, 46401, 63493 #### [facility] [address] [place] [address], [place] Glucose [Mass/Vol] 157 mg/dL High 70-100 [facility] Comment on above: Order Comment: << On admission If not done in ED>> No: Do not add to previous draw Performed By: #### 0 0121, 63231, 70699, 96602, 09022 #### [facility] [address] [place] [address], [place] Potassium [Moles/Vol] 4.0 mmol/L Normal 3.5-5.1 [facility] Comment on above: Order Comment: << On admission If not done in ED>> No: Do not add to previous draw Performed By: #### 0 0121, 57297, 35672, 28233, 71456 #### [facility] [address] [place] [address], [place] Sodium [Moles/Vol] 143 mmol/L Normal 136-145 [facility] Comment on above: Order Comment: << On admission If not done in ED>> No: Do not add to previous draw Performed By: #### 0 0121, 69521, 33347, 81382, 49882 #### [facility] [address] [place] [address], [place] Urea nitrogen [Mass/Vol] 17 mg/dL Normal 7-25 [facility] Comment on above: Order Comment: << On admission If not done in ED>> No: Do not add to previous draw Performed By: #### 0 0121, 58154, 46959, 63841, 08603 #### [facility] [address] [place] [address], [place] Calcium [Mass/Vol] 8.7 mg/dL Normal 8.6-10.3 [facility] Comment on above: Order Comment: << On admission If not done in ED>> No: Do not add to previous draw Performed By: #### 0 0121, 93456, 63886, 70481, 88602 #### [facility] [address] [place] [address], [place] CO2 [Moles/Vol] 22 mmol/L Normal 21-31 [facility] Comment on above: Order Comment: << On admission If not done in ED>> No: Do not add to previous draw Performed By: #### 0 0121, 98049, 69908, 54096, 60129 #### [facility] [address] [place] [address], [place] Creatinine [Mass/Vol] 1.00 mg/dL Normal 0.70-1.30 [facility] Comment on above: Order Comment: << On admission If not done in ED>> No: Do not add to previous draw Performed By: #### 0 0121, 58101, 02508, 08805, 61882 #### [facility] [address] [place] [address], [place] Glucose [Mass/Vol] 126 mg/dL High 70-100 [facility] Comment on above: Order Comment: << On admission If not done in ED>> No: Do not add to previous draw Performed By: #### 0 0121, 70765, 69615, 28344, 57930 #### [facility] [address] [place] [address], [place] Potassium [Moles/Vol] 4.1 mmol/L Normal 3.5-5.1 [facility] Comment on above: Order Comment: << On admission If not done in ED>> No: Do not add to previous draw Performed By: #### 0 0121, 54742, 50607, 75328, 89540 #### [facility] [address] [place] [address], [place] CBC COMPLETE BLOOD COUNTon 0 - Erythrocyte distribution width (RBC) [Ratio] 13.2 % Normal 11.5-15.0 [facility] Comment on above: Order Comment: << On admission If not done in ED>> No: Do not add to previous draw Performed By: #### 0 0121, 28223, 96206, 70729, 05785 #### [facility] [address] [place] [address], [facility] Hematocrit (Bld) [Volume fraction] 39.8 % Normal 39.0-50.0 [facility] Comment on above: Order Comment: << On admission If not done in ED>> No: Do not add to previous draw Performed By: #### 0 0121, 92869, 01637, 23984, 08757 #### [facility] [address] Hemoglobin (Bld) [Mass/Vol] 12.8 g/dL Low 13.0-17.0 [facility] Comment on above: Order Comment: << On admission If not done in ED>> No: Do not add to previous draw Performed By: #### 0 0121, 21793, 20488, 05392, 04605 #### [facility] [address] [facility] MCH (RBC) [Entitic mass] 28.8 pg Normal 27.0-33.0 [facility] Comment on above: Order Comment: << On admission If not done in ED>> No: Do not add to previous draw Performed By: #### 0 0121, 42907, 24387, 19149, 12370 #### [facility] [address] [facility] MCHC (RBC) [Mass/Vol] 32.2 g/dL Normal 32.0-35.0 [facility] Comment on above: Order Comment: << On admission If not done in ED>> No: Do not add to previous draw Performed By: #### 0 0121, 30926, 88026, 25878, 46255 #### [facility] [address] [place] [address], [facility] MCV (RBC) [Entitic vol] 89.4 fL Normal 82.0-98.0 [facility] Comment on above: Order Comment: << On admission If not done in ED>> No: Do not add to previous draw Performed By: #### 0 0121, 24714, 32726, 15558, 72034 #### [facility] [address] [place] [address], [facility] Nucleated RBC/100 WBC (Bld) [Ratio] 0 % Normal 0-0 [facility] Comment on above: Order Comment: << On admission If not done in ED>> No: Do not add to previous draw Performed By: #### 0 0121, 65360, 86210, 49022, 25286 #### [facility] [address] [place] [address], [facility] PLAT CNT 144 10*3/uL Low 150-400 [facility] Comment on above: Order Comment: << On admission If not done in ED>> No: Do not add to previous draw Performed By: #### 0 0121, 20432, 99367, 22702, 72784 #### [facility] [address] [place] [address], [facility] RBC (Bld) [#/Vol] 4.45 10*6/uL Normal 4.20-5.70 [facility] Comment on above: Order Comment: << On admission If not done in ED>> No: Do not add to previous draw Performed By: #### 0 0121, 53357, 58852, 44142, 95816 #### [facility] [address] [place] [address], [facility] WBC (Bld) [#/Vol] 18.51 10*3/uL High 4.00-10.60 [facility] Comment on above: Order Comment: << On admission If not done in ED>> No: Do not add to previous draw Performed By: #### 0 0121, 65957, 84748, 06247, 14188 #### [facility] [address] [place] [address], [facility] Erythrocyte distribution width (RBC) [Ratio] 13.1 % Normal 11.5-15.0 [facility] Comment on above: Order Comment: << On admission If not done in ED>> No: Do not add to previous draw Performed By: #### 0 0121, 54019, 52731, 06213, 39838 #### [facility] [address] [place] [address], [facility] Hematocrit (Bld) [Volume fraction] 43.9 % Normal 39.0-50.0 [facility] Comment on above: Order Comment: << On admission If not done in ED>> No: Do not add to previous draw Performed By: #### 0 0121, 41722, 20732, 53764, 64798 #### [facility] [address] [place] [address], [facility] Hemoglobin (Bld) [Mass/Vol] 13.9 g/dL Normal 13.0-17.0 [facility] Comment on above: Order Comment: << On admission If not done in ED>> No: Do not add to previous draw Performed By: #### 0 0121, 66635, 37120, 62458, 08916 #### [facility] [address] [place] [address], [facility] MCH (RBC) [Entitic mass] 28.7 pg Normal 27.0-33.0 [facility] Comment on above: Order Comment: << On admission If not done in ED>> No: Do not add to previous draw Performed By: #### 0 0121, 08412, 34719, 94455, 32698 #### [facility] [address] [place] [address], [facility] MCHC (RBC) [Mass/Vol] 31.7 g/dL Low 32.0-35.0 [facility] Comment on above: Order Comment: << On admission If not done in ED>> No: Do not add to previous draw Performed By: #### 0 0121, 03163, 45794, 54200, 97595 #### [facility] [address] MCV (RBC) [Entitic vol] 90.5 fL Normal 82.0-98.0 [facility] Comment on above: Order Comment: << On admission If not done in ED>> No: Do not add to previous draw Performed By: #### 0 0121, 96729, 32609, 73449, 70110 #### [facility] [address] [place] [address], [facility] PLAT CNT 185 10*3/uL Normal 150-400 [facility] Comment on above: Order Comment: << On admission If not done in ED>> No: Do not add to previous draw Performed By: #### 0 0121, 29440, 13821, 90030, 58479 #### [facility] [address] [place] [address], [facility] RBC (Bld) [#/Vol] 4.85 10*6/uL Normal 4.20-5.70 [facility] Comment on above: Order Comment: << On admission If not done in ED>> No: Do not add to previous draw Performed By: #### 0 0121, 00744, 09311, 17958, 75940 #### [facility] [address] [place] [address], [facility] WBC (Bld) [#/Vol] 19.37 10*3/uL High 4.00-10.60 [facility] Comment on above: Order Comment: << On admission If not done in ED>> No: Do not add to previous draw Performed By: #### 0 0121, 35161, 98825, 73529, 73085 #### [facility] [address] [place] [address], [facility] Hematocrit (Bld) [Volume fraction] 42.3 % Normal 39.0-50.0 [facility] Comment on above: Order Comment: << On admission If not done in ED>> No: Do not add to previous draw Performed By: #### 0 0121, 33941, 22422, 82980, 11239 #### [facility] [address] [facility] [place] [address], [facility] Hemoglobin (Bld) [Mass/Vol] 14.0 g/dL Normal 13.0-17.0 [facility] Comment on above: Order Comment: << On admission If not done in ED>> No: Do not add to previous draw Performed By: #### 0 0121, 50273, 05712, 74273, 77929 #### [facility] [address] [facility] [place] [address], [facility] MCH (RBC) [Entitic mass] 29.2 pg Normal 27.0-33.0 [facility] Comment on above: Order Comment: << On admission If not done in ED>> No: Do not add to previous draw Performed By: #### 0 0121, 77953, 70498, 30843, 75854 #### [facility] [address] MCHC (RBC) [Mass/Vol] 33.1 g/dL Normal 32.0-35.0 [facility] Comment on above: Order Comment: << On admission If not done in ED>> No: Do not add to previous draw Performed By: #### 0 0121, 63445, 73029, 11590, 56206 #### [facility] [address] [facility] MCV (RBC) [Entitic vol] 88.3 fL Normal 82.0-98.0 [facility] Comment on above: Order Comment: << On admission If not done in ED>> No: Do not add to previous draw Performed By: #### 0 0121, 82825, 15192, 30845, 56542 #### [facility] [address] [place] [address], [facility] PLAT CNT 169 10*3/uL Normal 150-400 [facility] Comment on above: Order Comment: << On admission If not done in ED>> No: Do not add to previous draw Performed By: #### 0 0121, 41812, 42569, 83858, 48096 #### [facility] [address] [place] [address], [place] RBC (Bld) [#/Vol] 4.79 10*6/uL Normal 4.20-5.70 [facility] Comment on above: Order Comment: << On admission If not done in ED>> No: Do not add to previous draw Performed By: #### 0 0121, 45027, 43963, 50943, 01324 #### [facility] [address] [place] [address], [place] WBC (Bld) [#/Vol] 19.78 10*3/uL High 4.00-10.60 [facility] Comment on above: Order Comment: << On admission If not done in ED>> No: Do not add to previous draw Performed By: #### 0 0121, 70757, 09458, 04679, 88203 ####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 to previous draw Performed By: #### 8 5123, 45464 #### [facility] [address] [place] [address], [place] Potassium [Moles/Vol] 3.9 mmol/L Normal 3.5-5.1 [facility] Comment on above: Order Comment: If no t done in ED No: Do not add to previous draw Performed By: #### 8 5123, 39763 #### [facility] [address] [place] [address], [place] Sodium [Moles/Vol] 142 mmol/L Normal 136-145 [facility] Comment on above: Order Comment: If no t done in ED No: Do not add to previous draw Performed By: #### 8 5123, 31017 #### [facility] [address] [place] [address], [place] Urea nitrogen [Mass/Vol] 19 mg/dL Normal 7-25 [facility] Comment on above: Order Comment: If no t done in ED No: Do not add to previous draw Performed By: #### 8 5123, 79524 #### [facility] [address] [place] [address], [place] Calcium [Mass/Vol] 9.5 mg/dL Normal 8.6-10.3 [facility] Comment on above: Order Comment: If no t done in ED No: Do not add to previous draw Performed By: #### 0 0121, 70948, 52578, 55826, 28525 #### [facility] [address] [place] [address], [facility] Chloride [Moles/Vol] 105 mmol/L Normal 98-107 [facility] Comment on above: Order Comment: If no t done in ED No: Do not add to previous draw Performed By: #### 0 0121, 52884, 90459, 21034, 22402 #### [facility] [address] [place] [address], [place] CO2 [Moles/Vol] 24 mmol/L Normal 21-31 [facility] Comment on above: Order Comment: If no t done in ED No: Do not add to previous draw Performed By: #### 0 0121, 10407, 18673, 27893, 77646 #### [facility] [address] [place] [address], [place] Creatinine [Mass/Vol] 1.11 mg/dL Normal 0.70-1.30 [facility] Comment on above: Order Comment: If no t done in ED No: Do not add to previous draw Performed By: #### 0 0121, 92998, 65873, 55692, 49595 #### [facility] [address] [place] [address], [place] GFR/1.73 sq M predicted among blacks MDRD (S/P/Bld) [Vol rate/Area] mL/min/{1.73_m2} Normal >60 [facility] Comment on above: Order Comment: If no t done in ED No: Do not add to previous draw Performed By: #### 0 0121, 24373, 71102, 96857, 48782 #### [facility] [address] [place] [address], [place] GFR/1.73 sq M predicted among non-blacks MDRD (S/P/Bld) [Vol rate/Area] mL/min/{1.73_m2} Normal >60 [facility] Comment on above: Order Comment: If no t done in ED No: Do not add to previous draw Performed By: #### 0 0121, 85992, 92494, 70903, 63874 #### [facility] [address] [place] [address], [place] Glucose [Mass/Vol] 89 mg/dL Normal 70-100 [facility] Comment on above: Order Comment: If no t done in ED No: Do not add to previous draw Performed By: #### 0 0121, 82656, 06725, 08770, 41924 #### [facility] [address] [place] [address], [facility] Potassium [Moles/Vol] 4.2 mmol/L Normal 3.5-5.1 [facility] Comment on above: Order Comment: If no t done in ED No: Do not add to previous draw Performed By: #### 0 0121, 04104, 39167, 21621, 59117 #### [facility] [address] [place] [address], [facility] Sodium [Moles/Vol] 135 mmol/L Low 136-145 [facility] Comment on above: Order Comment: If no t done in ED No: Do not add to previous draw Performed By: #### 0 0121, 69456, 97995, 44756, 91941 #### [facility] [address] [place] [address], [place] Urea nitrogen [Mass/Vol] 17 mg/dL Normal 7-25 [facility] Comment on above: Order Comment: If no t done in ED No: Do not add to previous draw Performed By: #### 0 0121, 65764, 34165, 02707, 72736 #### [facility] [address] [place] [address], [place] CBC COMPLETE BLOOD COUNTon 0 03-19-2019 Erythrocyte distribution width (RBC) [Ratio] 13.0 % Normal 11.5-15.0 [facility] Comment on above: Order Comment: No: D o not add to previous draw Performed By: #### 5 7307 #### [facility] [address] [place] [address], [facility] Hematocrit (Bld) [Volume fraction] 42.7 % Normal 39.0-50.0 [facility] Comment on above: Order Comment: No: D o not add to previous draw Performed By: #### 5 7307 #### [facility] [address] [place] [address], [facility] Hemoglobin (Bld) [Mass/Vol] 14.3 g/dL Normal 13.0-17.0 [facility] Comment on above: Order Comment: No: D o not add to previous draw Performed By: #### 5 7307 #### [facility] [address] [place] [address], [facility] MCH (RBC) [Entitic mass] 29.4 pg Normal 27.0-33.0 [facility] Comment on above: Order Comment: No: D o not add to previous draw Performed By: #### 5 7307 #### [facility] [address] [place] [address], [facility] MCHC (RBC) [Mass/Vol] 33.5 g/dL Normal 32.0-35.0 [facility] Comment on above: Order Comment: No: D o not add to previous draw Performed By: #### 5 7307 #### [facility] [address] [place] [address], [facility] MCV (RBC) [Entitic vol] 87.9 fL Normal 82.0-98.0 [facility] Comment on above: Order Comment: No: D o not add to previous draw Performed By: #### 5 7307 #### [facility] [address] [place] [id number], [facility] Nucleated RBC/100 WBC (Bld) [Ratio] 0 % Normal 0-0 [facility] Comment on above: Order Comment: No: D o not add to previous draw Performed By: #### 5 7307 #### [facility] [address] [place] [address], [facility] PLAT CNT 179 10*3/uL Normal 150-400 [facility] Comment on above: Order Comment: No: D o not add to previous draw Performed By: #### 5 7307 #### [facility] [address] [place] [address], [facility] RBC (Bld) [#/Vol] 4.86 10*6/uL Normal 4.20-5.70 [facility] Comment on above: Order Comment: No: D o not add to previous draw Performed By: #### 5 7307 #### [facility] [address] [place] [address], [facility] WBC (Bld) [#/Vol] 26.36 10*3/uL High 4.00-10.60 [facility] Comment on above: Order Comment: No: D o not add to previous draw Performed By: #### 5 7307 #### [facility] [address] [place] [address], [facility] Erythrocyte distribution width (RBC) [Ratio] 13.0 % Normal 11.5-15.0 [facility] Comment on above: Order Comment: R/O P ulmonary Edema Performed By: #### 5 0608 ####[facility] [place], [place] [address], [facility] Hematocrit (Bld) [Volume fraction] 47.1 % Normal 39.0-50.0 [facility] Comment on above: Order Comment: R/O P ulmonary Edema Performed By: #### 5 0608 ####[facility] [facility] [place] [address], [facility] Hemoglobin (Bld) [Mass/Vol] 15.0 g/dL Normal 13.0-17.0 [facility] Comment on above: Order Comment: R/O P ulmonary Edema Performed By: #### 5 0608 ####[facility] [place] [address], [facility] MCH (RBC) [Entitic mass] 29.4 pg Normal 27.0-33.0 [facility] Comment on above: Order Comment: R/O P ulmonary Edema Performed By: #### 5 0608 ####[facility] [place] [address], [facility] MCHC (RBC) [Mass/Vol] 31.8 g/dL Low 32.0-35.0 [facility] Comment on above: Order Comment: R/O P ulmonary Edema Performed By: #### 5 0608 ####[facility] [place] [address], [facility] MCV (RBC) [Entitic vol] 92.4 fL Normal 82.0-98.0 [facility] Comment on above: Order Comment: R/O P ulmonary Edema Performed By: #### 5 0608 ####[facility] Nucleated RBC/100 WBC (Bld) [Ratio] 0 % Normal 0-0 [facility] Comment on above: Order Comment: R/O P ulmonary Edema Performed By: #### 5 0608 ####[facility] [place] [address], [facility] PLAT CNT 188 10*3/uL Normal 150-400 [facility] Comment on above: Order Comment: R/O P ulmonary Edema Performed By: #### 5 0608 ####[facility] [place] [address], [facility] RBC (Bld) [#/Vol] 5.10 10*6/uL Normal 4.20-5.70 [facility] Comment on above: Order Comment: R/O P ulmonary Edema Performed By: #### 5 0608 ####[facility] [place] [address], [facility] WBC (Bld) [#/Vol] 31.20 10*3/uL High 4.00-10.60 [facility] Comment on above: Order Comment: R/O P ulmonary Edema Performed By: #### 5 0608 ####[facility] Erythrocyte distribution width (RBC) [Ratio] 13.0 % Normal 11.5-15.0 [facility] Comment on above: Order Comment: If no t done in ED No: Do not add to previous draw Performed By: #### 8 5123, 91732 #### [facility] [address] [place] [address], [facility] Hematocrit (Bld) [Volume fraction] 44.2 % Normal 39.0-50.0 [facility] Comment on above: Order Comment: If no t done in ED No: Do not add to previous draw Performed By: #### 8 5123, 15563 #### [facility] [address] [place] [id number], [facility] Hemoglobin (Bld) [Mass/Vol] 14.4 g/dL Normal 13.0-17.0 [facility] Comment on above: Order Comment: If no t done in ED No: Do not add to previous draw Performed By: #### 8 5123, 86689 #### [facility] [address] [place] [id number], [facility] MCH (RBC) [Entitic mass] 28.8 pg Normal 27.0-33.0 [facility] Comment on above: Order Comment: If no t done in ED No: Do not add to previous draw Performed By: #### 8 5123, 86125 #### [facility] [address] [place] [id number], [place] MCHC (RBC) [Mass/Vol] 32.6 g/dL Normal 32.0-35.0 [facility] Comment on above: Order Comment: If no t done in ED No: Do not add to previous draw Performed By: #### 8 5123, 92412 #### [facility] [address] [place] [id number], [facility] MCV (RBC) [Entitic vol] 88.4 fL Normal 82.0-98.0 [facility] Comment on above: Order Comment: If no t done in ED No: Do not add to previous draw Performed By: #### 8 5123, 74673 #### [facility] [address] [place] [address], [facility] Nucleated RBC/100 WBC (Bld) [Ratio] 0 % Normal 0-0 [facility] Comment on above: Order Comment: If no t done in ED No: Do not add to previous draw Performed By: #### 8 5123, 16434 #### [facility] [address] [place] [address], [facility] PLAT CNT 166 10*3/uL Normal 150-400 [facility] Comment on above: Order Comment: If no t done in ED No: Do not add to previous draw Performed By: #### 8 5123, 02670 #### [facility] [address] [place] [address], [facility] RBC (Bld) [#/Vol] 5.00 10*6/uL Normal 4.20-5.70 [facility] Comment on above: Order Comment: If no t done in ED No: Do not add to previous draw Performed By: #### 8 5123, 15612 #### [facility] [address] [place] [address], [place] WBC (Bld) [#/Vol] 33.13 10*3/uL High 4.00-10.60 [facility] Comment on above: Order Comment: If no t done in ED No: Do not add to previous draw Performed By: #### 8 5123, 94005 #### [facility] [address] [place] [address], [place] Erythrocyte distribution width (RBC) [Ratio] 13.0 % Normal 11.5-15.0 [facility] Comment on above: Order Comment: If no t done in ED No: Do not add to previous draw Performed By: #### 0 0121, 27419, 32024, 26186, 60140 #### [facility] [address] [place] [address], [place] Hematocrit (Bld) [Volume fraction] 55.7 % High 39.0-50.0 [facility] Comment on above: Order Comment: If no t done in ED No: Do not add to previous draw Performed By: #### 0 0121, 00459, 67680, 89066, 47491 #### [facility] [address] [place] [address], [facility] Hemoglobin (Bld) [Mass/Vol] 18.2 g/dL High 13.0-17.0 [facility] Comment on above: Order Comment: If no t done in ED No: Do not add to previous draw Performed By: #### 0 0121, 75592, 59191, 06086, 22970 #### [facility] [address] [place] [address], [facility] MCH (RBC) [Entitic mass] 28.6 pg Normal 27.0-33.0 [facility] Comment on above: Order Comment: If no t done in ED No: Do not add to previous draw Performed By: #### 0 0121, 63760, 69148, 22872, 18717 #### [facility] [address] [place] [address], [place] MCHC (RBC) [Mass/Vol] 32.7 g/dL Normal 32.0-35.0 [facility] Comment on above: Order Comment: If no t done in ED No: Do not add to previous draw Performed By: #### 0 0121, 26752, 02792, 29232, 68646 #### [facility] [address] [place] [address], [facility] MCV (RBC) [Entitic vol] 87.4 fL Normal 82.0-98.0 [facility] Comment on above: Order Comment: If no t done in ED No: Do not add to previous draw Performed By: #### 0 0121, 57850, 62031, 95662, 66700 #### [facility] [address] [place] [id number], [place] Nucleated RBC/100 WBC (Bld) [Ratio] 0 % Normal 0-0 [facility] Comment on above: Order Comment: If no t done in ED No: Do not add to previous draw Performed By: #### 0 0121, 07007, 13407, 02814, 97309 #### [facility] [address] [place] [id number], [place] PLAT CNT 288 10*3/uL Normal 150-400 [facility] Comment on above: Order Comment: If no t done in ED No: Do not add to previous draw Performed By: #### 0 0121, 82956, 44463, 64637, 38537 #### [facility] [address] [place] [address], [facility] RBC (Bld) [#/Vol] 6.37 10*6/uL High 4.20-5.70 [facility] Comment on above: Order Comment: If no t done in ED No: Do not add to previous draw Performed By: #### 0 0121, 39501, 58552, 73584, 88283 #### [facility] [address] [place] [address], [place] WBC (Bld) [#/Vol] 11.26 10*3/uL High 4.00-10.60 [facility] Comment on above: Order Comment: If no t done in ED No: Do not add to previous draw Performed By: #### 0 0121, 39124, 40324, 38907, 88619 #### [facility] [address] COMP METABOLIC PANELon 03-19 Albumin [Mass/Vol] 3.8 g/dL Normal 3.5-5.7 [facility] Comment on above: Order Comment: R/O P ulmonary Edema Performed By: #### 0 0121, 04738, 04159 ####[facility] [place] [address], [facility] ALKALINE PHOSPH 30 IU/L Low 34-104 [facility] Comment on above: Order Comment: R/O P ulmonary Edema Performed By: #### 0 0121, 66390, 42827 ####[facility] [facility] ALT [Catalytic activity/Vol] 37 U/L Normal 7-52 [facility] Comment on above: Order Comment: R/O P ulmonary Edema Performed By: #### 0 0121, 79702, 21465 ####[facility] AST [Catalytic activity/Vol] 154 U/L High 13-39 [facility] Comment on above: Order Comment: R/O P ulmonary Edema Performed By: #### 0 0121, 79123, 15687 ####[facility] [place] [address], [facility] Bilirubin [Mass/Vol] 1.9 mg/dL High 0.3-1.0 [facility] Comment on above: Order Comment: R/O P ulmonary Edema Performed By: #### 0 0121, 11418, 61826 ####[facility] [place] [address], [facility] Calcium [Mass/Vol] 8.9 mg/dL Normal 8.6-10.3 [facility] Comment on above: Order Comment: R/O P ulmonary Edema Performed By: #### 0 0121, 81139, 30120 ####[facility] [place] [address], [facility] Chloride [Moles/Vol] 113 mmol/L High 98-107 [facility] Comment on above: Order Comment: R/O P ulmonary Edema Performed By: #### 0 0121, 24100, 30750 ####[facility] [place] [address], [facility] CO2 [Moles/Vol] 13 mmol/L Critically low 21-31 [facility] Comment on above: Order Comment: R/O P ulmonary Edema Result Comment: M-CR ITICAL RESULT(S) REVIEWED, CALLED TO AND READ BACK BY PEDRO CEDENO @[facility] 03.19.19 Performed By: #### 0 0121, 26750, 95180 ####[facility] [place] [address], [facility] Creatinine [Mass/Vol] 1.11 mg/dL Normal 0.70-1.30 [facility] Comment on above: Order Comment: R/O P ulmonary Edema Performed By: #### 0 0121, 27951, 81102 ####[facility] [place] [address], [facility] GFR/1.73 sq M predicted among blacks MDRD (S/P/Bld) [Vol rate/Area] mL/min/{1.73_m2} Normal >60 [facility] Comment on above: Order Comment: R/O P ulmonary Edema Performed By: #### 0 0121, 96272, 78397 ####[facility] [place] [address], [facility] GFR/1.73 sq M predicted among non-blacks MDRD (S/P/Bld) [Vol rate/Area] mL/min/{1.73_m2} Normal >60 [facility] Comment on above: Order Comment: R/O P ulmonary Edema Performed By: #### 0 0121, 70888, 53706 ####[facility] [place] [address], [facility] Glucose [Mass/Vol] 132 mg/dL High 70-100 [facility] Comment on above: Order Comment: R/O P ulmonary Edema Performed By: #### 0 0121, 28421, 26006 ####[facility] [place] [address], [facility] Potassium [Moles/Vol] 4.4 mmol/L Normal 3.5-5.1 [facility] Comment on above: Order Comment: R/O P ulmonary Edema Performed By: #### 0 0121, 14505, 00862 ####[facility] [place] [address], [facility] Protein [Mass/Vol] 5.6 g/dL Low 6.0-8.3 [facility] Comment on above: Order Comment: R/O P ulmonary Edema Performed By: #### 0 0121, 70698, 48746 ####[facility] [facility] [place] [address], [facility] Sodium [Moles/Vol] 140 mmol/L Normal 136-145 [facility] Comment on above: Order Comment: R/O P ulmonary Edema Performed By: #### 0 0121, 17951, 81864 ####[facility] [facility] [place] [address], [facility] Urea nitrogen [Mass/Vol] 18 mg/dL Normal 7-25 [facility] Comment on above: Order Comment: R/O P ulmonary Edema Performed By: #### 0 0121, 70185, 41723 ####[facility] [facility] [place] [place] [address], [facility] COOXIMETRYon 03-19-2019 COHB 2 % Normal [facility] Comment on above: Order Comment: No: D o not add to previous draw Performed By: #### 5 7307 #### [facility] [address] [place] [address], [place] METHB 1 % Normal [facility] Comment on above: Order Comment: No: D o not add to previous draw Performed By: #### 5 7307 #### [facility] [address] [place] [address], [place] Oxygen saturation in Blood 66.9 % Normal 65.0-75.0 [facility] Comment on above: Order Comment: No: D o not add to previous draw Performed By: #### 5 7307 #### [facility] [address] [place] [address], [place] THB 13.1 g/dL Normal [facility] Comment on above: Order Comment: No: D o not add to previous draw Performed By: #### 5 7307 #### [facility] [address] [place] [address], [place] COHB 2 % Normal [facility] Comment on above: Performed By: #### 7 0207 ####[facility] [place] [address], [place] METHB 1 % Normal [facility] Comment on above: Performed By: #### 7 0207 ####[facility] [place] [address], [place] Oxygen saturation in Blood 59.2 % Low 65.0-75.0 [facility] Comment on above: Performed By: #### 7 0207 ####[facility] [place] [address], [place] THB 14.0 g/dL Normal [facility] Comment on above: Performed By: #### 7 0207 ####[facility] [place] [address], [place] LACTATE BLOODon 03-19-2019 Lactate [Moles/Vol] 2.6 mmol/L Critically high 0.5-2.2 [facility] Comment on above: Order Comment: No: D o not add to previous draw Result Comment: M-CR ITICAL RESULT(S) REVIEWED, CALLED TO AND READ BACK BY PEDRO MONTANO @2136 03.19.19 Performed By: #### 5 7307 #### [facility] [address] [place] [address], [place] MAGNESIUM BLOODon 03-19-2019 Magnesium [Mass/Vol] 2.4 mg/dL Normal 1.9-2.7 [facility] Comment on above: Order Comment: No: D o not add to previous draw Performed By: #### 5 7307 #### [facility] [address] [place] [address], [place] Magnesium [Mass/Vol] 2.7 mg/dL Normal 1.9-2.7 [facility] Comment on above: Order Comment: R/O P ulmonary Edema Performed By: #### 0 0121, 47812, 62080 ####[facility] [place] [address], [place] Magnesium [Mass/Vol] 2.9 mg/dL High 1.9-2.7 [facility] Comment on above: Performed By: #### 8 5123, 89508 #### [facility] [address] [place] [address], [place] PERFUSION BLOOD PANELon 03-01 BASE EXCESS -4.0 mmol/L Low -2.0-3.0 [facility] Comment on above: Performed By: #### 8 5123, 93858 #### [facility] [address] [place] [address], [place] Glucose [Mass/Vol] 143 mg/dL High 70-105 [facility] Comment on above: Performed By: #### 8 5123, 67323 #### [facility] [address] [place] [address], [place] Hematocrit (Bld) [Volume fraction] 39 % Normal 38-51 [facility] Comment on above: Performed By: #### 8 5123, 13002 #### [facility] [address] [place] [address], [place] Hemoglobin (Bld) [Mass/Vol] 13.3 g/dL Normal 12.0-17.0 [facility] Comment on above: Performed By: #### 8 512, 35051 #### [facility] [address] [place] [address], [place] IONIZED CALCIUM 1.58 mmol/L Critically high 1.12-1.32 [facility] Comment on above: Performed By: #### 8 512, 42302 #### [facility] [address] [place] [address], [facility] Oxygen (Bld) [Partial pressure] 59.0 mm[Hg] Low 80.0-105.0 [facility] Comment on above: Performed By: #### 8 512, 18150 #### [facility] [address] [place] [address], [place] PCO2 35.4 mmHg Normal 35.0-45.0 [facility] Comment on above: Performed By: #### 8 512, 72849 #### [facility] [address] [place] [address], [place] pH (Bld) 7.37 [pH] Normal 7.35-7.45 [facility] Comment on above: Performed By: #### 8 512, 46678 #### [facility] [address] [place] [address], [place] Potassium [Moles/Vol] 3.7 mmol/L Normal 3.5-4.9 [facility] Comment on above: Performed By: #### 8 5123, 29330 #### [facility] [address] [place] [address], [place] Sodium [Moles/Vol] 144 mmol/L Normal 138-146 [facility] Comment on above: Performed By: #### 8 5123, 35090 #### [facility] [address] [place] [address], [facility] BASE EXCESS -5.0 mmol/L Low -2.0-3.0 [facility] Comment on above: Performed By: #### 8 5123, 70388 #### [facility] [address] [place] [address], [place] Glucose [Mass/Vol] 158 mg/dL High 70-105 [facility] Comment on above: Performed By: #### 8 512, 01712 #### [facility] [address] [place] [address], [facility] Hematocrit (Bld) [Volume fraction] 41 % Normal 38-51 [facility] Comment on above: Performed By: #### 8 512, 50984 #### [facility] [address] [place] [address], [facility] Hemoglobin (Bld) [Mass/Vol] 13.9 g/dL Normal 12.0-17.0 [facility] Comment on above: Performed By: #### 8 5123, 50599 #### [facility] [address] [place] [address], [facility] IONIZED CALCIUM 1.34 mmol/L High 1.12-1.32 [facility] Comment on above: Performed By: #### 8 5123, 80214 #### [facility] [address] [place] [address], [facility] Oxygen (Bld) [Partial pressure] 51.0 mm[Hg] Low 80.0-105.0 [facility] Comment on above: Performed By: #### 8 5123, 33843 #### [facility] [address] [place] [address], [facility] PCO2 34.5 mmHg Low 35.0-45.0 [facility] Comment on above: Performed By: #### 8 512, 65772 #### [facility] [address] [place] [address], [facility] pH (Bld) 7.36 [pH] Normal 7.35-7.45 [facility] Comment on above: Performed By: #### 8 512, 50337 #### [facility] [address] [place] [address], [place] Potassium [Moles/Vol] 4.2 mmol/L Normal 3.5-4.9 [facility] Comment on above: Performed By: #### 8 512, 63221 #### [facility] [address] [place] [address], [place] Sodium [Moles/Vol] 142 mmol/L Normal 138-146 [facility] Comment on above: Performed By: #### 8 512, 94780 #### [facility] [address] [place] [id number], [facility] BASE EXCESS -1.0 mmol/L Normal -2.0-3.0 [facility] Comment on above: Performed By: #### 8 512, 61756 #### [facility] [address] [place] [address], [place] Glucose [Mass/Vol] 163 mg/dL High 70-105 [facility] Comment on above: Performed By: #### 8 512, 49943 #### [facility] [address] [place] [address], [facility] Hematocrit (Bld) [Volume fraction] 42 % Normal 38-51 [facility] Comment on above: Performed By: #### 8 5123, 40966 #### [facility] [address] [place] [address], [place] Hemoglobin (Bld) [Mass/Vol] 14.3 g/dL Normal 12.0-17.0 [facility] Comment on above: Performed By: #### 8 5123, 09813 #### [facility] [address] [place] [address], [facility] IONIZED CALCIUM 1.05 mmol/L Low 1.12-1.32 [facility] Comment on above: Performed By: #### 8 5123, 40762 #### [facility] [address] [place] [address], [facility] Oxygen (Bld) [Partial pressure] 368.0 mm[Hg] High 80.0-105.0 [facility] Comment on above: Performed By: #### 8 512, 80140 #### [facility] [address] [place] [address], [place] PCO2 39.7 mmHg Normal 35.0-45.0 [facility] Comment on above: Performed By: #### 8 512, 32366 #### [facility] [address] [place] [address], [facility] pH (Bld) 7.39 [pH] Normal 7.35-7.45 [facility] Comment on above: Performed By: #### 8 512, 53465 #### [facility] [address] [facility] [place] [address], [place] Potassium [Moles/Vol] 3.9 mmol/L Normal 3.5-4.9 [facility] Comment on above: Performed By: #### 8 5123, 43828 #### [facility] [address] [place] [address], [place] Sodium [Moles/Vol] 145 mmol/L Normal 138-146 [facility] Comment on above: Performed By: #### 8 5123, 65433 #### [facility] [address] [place] [address], [place] BASE EXCESS -4.0 mmol/L Low -2.0-3.0 [facility] Comment on above: Performed By: #### 8 5123, 43754 #### [facility] [address] [place] [address], [facility] Glucose [Mass/Vol] 169 mg/dL High 70-105 [facility] Comment on above: Performed By: #### 8 5123, 96846 #### [facility] [address] [place] [address], [facility] Hematocrit (Bld) [Volume fraction] 40 % Normal 38-51 [facility] Comment on above: Performed By: #### 8 512, 81588 #### [facility] [address] [place] [address], [facility] Hemoglobin (Bld) [Mass/Vol] 13.6 g/dL Normal 12.0-17.0 [facility] Comment on above: Performed By: #### 8 512, 24252 #### [facility] [address] [place] [address], [facility] IONIZED CALCIUM 1.37 mmol/L High 1.12-1.32 [facility] Comment on above: Performed By: #### 8 512, 93210 #### [facility] [address] [place] [address], [facility] Oxygen (Bld) [Partial pressure] 301.0 mm[Hg] High 80.0-105.0 [facility] Comment on above: Performed By: #### 8 5123, 59428 #### [facility] [address] [place] [address], [facility] PCO2 36.1 mmHg Normal 35.0-45.0 [facility] Comment on above: Performed By: #### [id number], [id number] #### [facility] [address] [place] [address], [place] pH (Bld) 7.38 [pH] Normal 7.35-7.45 [facility] Comment on above: Performed By: #### [id number], [id number] #### [facility] [address] [place] [address], [facility] Potassium [Moles/Vol] 4.9 mmol/L Normal 3.5-4.9 [facility] Comment on above: Performed By: #### 8 5123, 48571 #### [facility] [address] [place] [address], [facility] Sodium [Moles/Vol] 137 mmol/L Low 138-146 [facility] Comment on above: Performed By: #### 8 5123, 07578 #### [facility] [address] [place] [address], [facility] BASE EXCESS -3.0 mmol/L Low -2.0-3.0 [facility] Comment on above: Performed By: #### 8 5123, 58353 #### [facility] [address] [place] [id number], [facility] Glucose [Mass/Vol] 174 mg/dL High 70-105 [facility] Comment on above: Performed By: #### 8 5123, 96781 #### [facility] [address] [place] [id number], [facility] Hematocrit (Bld) [Volume fraction] 45 % Normal 38-51 [facility] Comment on above: Performed By: #### 8 5123, 02060 #### [facility] [address] [place] [id number], [facility] Hemoglobin (Bld) [Mass/Vol] 15.3 g/dL Normal 12.0-17.0 [facility] Comment on above: Performed By: #### 8 5123, 52823 #### [facility] [address] [place] [id number], [facility] IONIZED CALCIUM 1.06 mmol/L Low 1.12-1.32 [facility] Comment on above: Performed By: #### 8 5123, 68719 #### [facility] [address] [place] [address], [facility] Oxygen (Bld) [Partial pressure] 404.0 mm[Hg] High 80.0-105.0 [facility] Comment on above: Performed By: #### 8 5123, 62992 #### [facility] [address] [place] [address], [facility] PCO2 42.4 mmHg Normal 35.0-45.0 [facility] Comment on above: Performed By: #### 8 5123, 51943 #### [facility] [address] [place] [address], [facility] pH (Bld) 7.35 [pH] Normal 7.35-7.45 [facility] Comment on above: Performed By: #### 8 5123, 94908 #### [facility] [address] [place] [address], [place] Potassium [Moles/Vol] 4.7 mmol/L Normal 3.5-4.9 [facility] Comment on above: Performed By: #### 8 5123, 03013 #### [facility] [address] [place] [address], [place] Sodium [Moles/Vol] 141 mmol/L Normal 138-146 [facility] Comment on above: Performed By: #### 8 5123, 86728 #### [facility] [address] [place] [address], [place] BASE EXCESS -2.0 mmol/L Normal -2.0-3.0 [facility] Comment on above: Performed By: #### 8 5123, 51560 #### [facility] [address] [place] [address], [place] Glucose [Mass/Vol] 184 mg/dL High 70-105 [facility] Comment on above: Performed By: #### 8 5123, 56218 #### [facility] [address] [place] [address], [facility] Hematocrit (Bld) [Volume fraction] 46 % Normal 38-51 [facility] Comment on above: Performed By: #### 8 5123, 00865 #### [facility] [address] [place] [address], [facility] Hemoglobin (Bld) [Mass/Vol] 15.6 g/dL Normal 12.0-17.0 [facility] Comment on above: Performed By: #### 8 5123, 94752 #### [facility] [address] [place] [address], [facility] IONIZED CALCIUM 1.06 mmol/L Low 1.12-1.32 [facility] Comment on above: Performed By: #### 8 5123, 53898 #### [facility] [address] [place] [address], [facility] Oxygen (Bld) [Partial pressure] 374.0 mm[Hg] High 80.0-105.0 [facility] Comment on above: Performed By: #### 8 5123, 80321 #### [facility] [address] [place] [address], [facility] PCO2 43.3 mmHg Normal 35.0-45.0 [facility] Comment on above: Performed By: #### 8 5123, 74981 #### [facility] [address] [place] [address], [facility] pH (Bld) 7.34 [pH] Low 7.35-7.45 [facility] Comment on above: Performed By: #### 8 5123, 14584 #### [facility] [address] [place] [address], [facility] Potassium [Moles/Vol] 4.8 mmol/L Normal 3.5-4.9 [facility] Comment on above: Performed By: #### 8 5123, 80151 #### [facility] [address] [place] [address], [facility] Sodium [Moles/Vol] 139 mmol/L Normal 138-146 [facility] Comment on above: Performed By: #### 8 5123, 31215 #### [facility] [address] [place] [address], [facility] BASE EXCESS -2.0 mmol/L Normal -2.0-3.0 [facility] Comment on above: Performed By: #### 8 5123, 83016 #### [facility] [address] [place] [address], [facility] Glucose [Mass/Vol] 176 mg/dL High 70-105 [facility] Comment on above: Performed By: #### 8 5123, 56118 #### [facility] [address] [place] [address], [facility] Hematocrit (Bld) [Volume fraction] 44 % Normal 38-51 [facility] Comment on above: Performed By: #### 8 5123, 50817 #### [facility] [address] [place] [address], [facility] Hemoglobin (Bld) [Mass/Vol] 15.0 g/dL Normal 12.0-17.0 [facility] Comment on above: Performed By: #### 8 5123, 32999 #### [facility] [address] [place] [address], [facility] IONIZED CALCIUM 1.07 mmol/L Low 1.12-1.32 [facility] Comment on above: Performed By: #### 8 5123, 30546 #### [facility] [address] [place] [address], [facility] Oxygen (Bld) [Partial pressure] 284.0 mm[Hg] High 80.0-105.0 [facility] Comment on above: Performed By: #### 8 5123, 18761 #### [facility] [address] [place] [address], [facility] PCO2 47.5 mmHg High 35.0-45.0 [facility] Comment on above: Performed By: #### 8 5123, 03715 #### [facility] [address] [place] [address], [facility] pH (Bld) 7.32 [pH] Low 7.35-7.45 [facility] Comment on above: Performed By: #### 8 5123, 97409 #### [facility] [address] [place] [address], [facility] Potassium [Moles/Vol] 4.8 mmol/L Normal 3.5-4.9 [facility] Comment on above: Performed By: #### 8 5123, 63704 #### [facility] [address] [place] [address], [facility] Sodium [Moles/Vol] 139 mmol/L Normal 138-146 [facility] Comment on above: Performed By: #### 8 5123, 25489 #### [facility] [address] [place] [address], [facility] BASE EXCESS -2.0 mmol/L Normal -2.0-3.0 [facility] Comment on above: Performed By: #### 0 0121, 44902, 74980, 79176, 45716 #### [facility] [address] [place] [address], [facility] Glucose [Mass/Vol] 166 mg/dL High 70-105 [facility] Comment on above: Performed By: #### 0 0121, 90630, 75565, 53688, 94547 #### [facility] [address] [place] [address], [facility] Hematocrit (Bld) [Volume fraction] 45 % Normal 38-51 [facility] Comment on above: Performed By: #### 0 0121, 04107, 51365, 55732, 91419 #### [facility] [address] [place] [address], [facility] Hemoglobin (Bld) [Mass/Vol] 15.3 g/dL Normal 12.0-17.0 [facility] Comment on above: Performed By: #### 0 0121, 53204, 63817, 38105, 08723 #### [facility] [address] [place] [address], [facility] IONIZED CALCIUM 1.09 mmol/L Low 1.12-1.32 [facility] Comment on above: Performed By: #### 0 0121, 30949, 96310, 87589, 71144 #### [facility] [address] [place] [address], [facility] Oxygen (Bld) [Partial pressure] 313.0 mm[Hg] High 80.0-105.0 [facility] Comment on above: Performed By: #### 0 0121, 17559, 77652, 72423, 78884 #### [facility] [address] [place] [address], [facility] PCO2 47.7 mmHg High 35.0-45.0 [facility] Comment on above: Performed By: #### 0 0121, 22963, 13382, 06137, 71423 #### [facility] [address] [place] [address], [facility] pH (Bld) 7.32 [pH] Low 7.35-7.45 [facility] Comment on above: Performed By: #### 0 0121, 72287, 05699, 98110, 92889 #### [facility] [address] [place] [address], [place] Potassium [Moles/Vol] 4.4 mmol/L Normal 3.5-4.9 [facility] Comment on above: Performed By: #### 0 0121, 67685, 99159, 22794, 97605 #### [facility] [address] [place] [address], [facility] Sodium [Moles/Vol] 140 mmol/L Normal 138-146 [facility] Comment on above: Performed By: #### 0 0121, 43852, 01666, 65675, 74165 #### [facility] [address] [place] [address], [facility] BASE EXCESS -1.0 mmol/L Normal -2.0-3.0 [facility] Comment on above: Performed By: #### 0 0121, 45636, 60660, 00206, 42436 #### [facility] [address] [place] [address], [facility] Glucose [Mass/Vol] 146 mg/dL High 70-105 [facility] Comment on above: Performed By: #### 0 0121, 17595, 40905, 79703, 32755 #### [facility] [address] [place] [address], [facility] Hematocrit (Bld) [Volume fraction] 45 % Normal 38-51 [facility] Comment on above: Performed By: #### 0 0121, 43657, 48969, 07346, 54247 #### [facility] [address] [place] [address], [facility] Hemoglobin (Bld) [Mass/Vol] 15.3 g/dL Normal 12.0-17.0 [facility] Comment on above: Performed By: #### 0 0121, 15120, 36210, 64503, 97363 #### [facility] [address] [place] [address], [place] IONIZED CALCIUM 1.06 mmol/L Low 1.12-1.32 [facility] Comment on above: Performed By: #### 0 0121, 08039, 98683, 00221, 20100 #### [facility] [address] [place] [address], [place] Oxygen (Bld) [Partial pressure] 319.0 mm[Hg] High 80.0-105.0 [facility] Comment on above: Performed By: #### 0 0121, 86655, 83833, 46815, 67213 #### [facility] [address] [place] [address], [place] PCO2 50.9 mmHg High 35.0-45.0 [facility] Comment on above: Performed By: #### 0 0121, 50986, 04226, 19474, 34934 #### [facility] [address] [place] [address], [place] pH (Bld) 7.32 [pH] Low 7.35-7.45 [facility] Comment on above: Performed By: #### 0 0121, 07351, 48911, 55675, 66793 #### [facility] [address] [place] [address], [place] Potassium [Moles/Vol] 4.4 mmol/L Normal 3.5-4.9 [facility] Comment on above: Performed By: #### 0 0121, 68702, 05589, 65715, 98112 #### [facility] [address] [place] [address], [place] Sodium [Moles/Vol] 138 mmol/L Normal 138-146 [facility] Comment on above: Performed By: #### 0 0121, 07871, 85476, 99465, 95223 #### [facility] [address] [place] [address], [place] BASE EXCESS 0.0 mmol/L Normal -2.0-3.0 [facility] Comment on above: Performed By: #### 0 0121, 25586, 30291, 39159, 98059 #### [facility] [address] [place] [address], [place] Glucose [Mass/Vol] 116 mg/dL High 70-105 [facility] Comment on above: Performed By: #### 0 0121, 91535, 04220, 50441, 62177 #### [facility] [address] [place] [address], [facility] Hematocrit (Bld) [Volume fraction] 43 % Normal 38-51 [facility] Comment on above: Performed By: #### 0 0121, 30806, 12412, 61032, 73417 #### [facility] [address] [place] [address], [facility] Hemoglobin (Bld) [Mass/Vol] 14.6 g/dL Normal 12.0-17.0 [facility] Comment on above: Performed By: #### 0 0121, 79753, 78097, 95321, 36015 #### [facility] [address] [place] [address], [facility] IONIZED CALCIUM 1.05 mmol/L Low 1.12-1.32 [facility] Comment on above: Performed By: #### 0 0121, 68398, 67640, 67640, 35135 #### [facility] [address] [place] [address], [facility] Oxygen (Bld) [Partial pressure] 409.0 mm[Hg] High 80.0-105.0 [facility] Comment on above: Performed By: #### 0 0121, 28657, 02201, 58557, 89283 #### [facility] [address] [place] [id number], [facility] PCO2 44.9 mmHg Normal 35.0-45.0 [facility] Comment on above: Performed By: #### 0 0121, 83064, 76819, 63031, 90330 #### [facility] [address] [place] [address], [facility] pH (Bld) 7.36 [pH] Normal 7.35-7.45 [facility] Comment on above: Performed By: #### 0 0121, 50611, 28219, 40099, 27722 #### [facility] [address] [place] [address], [place] Potassium [Moles/Vol] 4.5 mmol/L Normal 3.5-4.9 [facility] Comment on above: Performed By: #### 0 0121, 70945, 20579, 96730, 16079 #### [facility] [address] [place] [address], [place] Sodium [Moles/Vol] 138 mmol/L Normal 138-146 [facility] Comment on above: Performed By: #### 0 0121, 28974, 22533, 51481, 19929 #### [facility] [address] [place] [address], [place] BASE EXCESS 0.0 mmol/L Normal -2.0-3.0 [facility] Comment on above: Performed By: #### 0 0121, 80342, 46665, 01389, 64750 #### [facility] [address] [place] [address], [place] Glucose [Mass/Vol] 101 mg/dL Normal 70-105 [facility] Comment on above: Performed By: #### 0 0121, 34451, 33900, 25453, 12685 #### [facility] [address] [place] [address], [place] Hematocrit (Bld) [Volume fraction] 44 % Normal 38-51 [facility] Comment on above: Performed By: #### 0 0121, 62811, 89886, 86554, 48300 #### [facility] [address] [place] [address], [place] Hemoglobin (Bld) [Mass/Vol] 15.0 g/dL Normal 12.0-17.0 [facility] Comment on above: Performed By: #### 0 0121, 95047, 73492, 84927, 15011 #### [facility] [address] [place] [address], [facility] IONIZED CALCIUM 1.02 mmol/L Low 1.12-1.32 [facility] Comment on above: Performed By: #### 0 0121, 64838, 21349, 99910, 28546 #### [facility] [address] [place] [address], [facility] Oxygen (Bld) [Partial pressure] 516.0 mm[Hg] High 80.0-105.0 [facility] Comment on above: Performed By: #### 0 0121, 50561, 82521, 37436, 34227 #### [facility] [address] [place] [id number], [facility] PCO2 50.7 mmHg High 35.0-45.0 [facility] Comment on above: Performed By: #### 0 0121, 70065, 63975, 68867, 79579 #### [facility] [address] [place] [address], [facility] pH (Bld) 7.33 [pH] Low 7.35-7.45 [facility] Comment on above: Performed By: #### 0 0121, 58288, 47072, 08843, 48436 #### [facility] [address] [place] [address], [facility] Potassium [Moles/Vol] 4.1 mmol/L Normal 3.5-4.9 [facility] Comment on above: Performed By: #### 0 0121, 98877, 55885, 64127, 34182 #### [facility] [address] [place] [address], [place] Sodium [Moles/Vol] 137 mmol/L Low 138-146 [facility] Comment on above: Performed By: #### 0 0121, 61786, 95080, 05298, 33608 #### [facility] [address] [place] [address], [place] Hematocrit (Bld) [Volume fraction] 43 % Normal 38-51 [facility] Comment on above: Performed By: #### 0 0121, 00936, 26470, 66652, 80436 #### [facility] [address] [place] [address], [place] Hemoglobin (Bld) [Mass/Vol] 14.6 g/dL Normal 12.0-17.0 [facility] Comment on above: Performed By: #### 0 0121, 05537, 32025, 97246, 55109 #### [facility] [address] [place] [address], [place] Oxygen (Bld) [Partial pressure] 51.0 mm[Hg] Normal [facility] Comment on above: Performed By: #### 0 0121, 07212, 43806, 27769, 71796 #### [facility] [address] [place] [address], [place] BASE EXCESS -4.0 mmol/L Low -2.0-3.0 [facility] Comment on above: Performed By: #### 0 0121, 83883, 48856, 37003, 85507 #### [facility] [address] [place] [address], [place] Glucose [Mass/Vol] 104 mg/dL Normal 70-105 [facility] Comment on above: Performed By: #### 0 0121, 95762, 11871, 08421, 68523 #### [facility] [address] [place] [address], [place] Hematocrit (Bld) [Volume fraction] 55 % High 38-51 [facility] Comment on above: Performed By: #### 0 0121, 40197, 32827, 43783, 17304 #### [facility] [address] [place] [address], [place] Hemoglobin (Bld) [Mass/Vol] 18.7 g/dL High 12.0-17.0 [facility] Comment on above: Performed By: #### 0 0121, 51198, 47616, 63560, 52033 #### [facility] [address] [place] [address], [facility] IONIZED CALCIUM 1.24 mmol/L Normal 1.12-1.32 [facility] Comment on above: Performed By: #### 0 0121, 70356, 60033, 82194, 33869 #### [facility] [address] [place] [address], [facility] Oxygen (Bld) [Partial pressure] 159.0 mm[Hg] High 80.0-105.0 [facility] Comment on above: Performed By: #### 0 0121, 88675, 95296, 32306, 02893 #### [facility] [address] [place] [address], [facility] PCO2 48.7 mmHg High 35.0-45.0 [facility] Comment on above: Performed By: #### 0 0121, 00874, 96786, 43819, 01705 #### [facility] [address] [place] [address], [facility] pH (Bld) 7.30 [pH] Low 7.35-7.45 [facility] Comment on above: Performed By: #### 0 0121, 86522, 39876, 97310, 10565 #### [facility] [address] [place] [address], [place] Potassium [Moles/Vol] 4.1 mmol/L Normal 3.5-4.9 [facility] Comment on above: Performed By: #### 0 0121, 55321, 08570, 14984, 11302 #### [facility] [address] [place] [address], [place] Sodium [Moles/Vol] 139 mmol/L Normal 138-146 [facility] Comment on above: Performed By: #### 0 0121, 66948, 39117, 15564, 61539 #### [facility] [address] [place] [address], [facility] PHOSPHORUS BLOODon 9 Phosphate [Mass/Vol] 4.3 mg/dL Normal 2.5-5.0 [facility] Comment on above: Order Comment: R/O P ulmonary Edema Performed By: #### 0 0121, 00362, 54570 ####[facility] [place] [address], [facility] POC GLUCOSE LABon 03-19-2019 Glucose [Mass/Vol] 115 mg/dL High 70-100 [facility] Comment on above: Performed By: #### 5 7307 #### [facility] [address] [place] [address], [facility] Glucose [Mass/Vol] 145 mg/dL High 70-100 [facility] Comment on above: Performed By: #### 5 7307 #### [facility] [address] [place] [address], [facility] Glucose [Mass/Vol] 121 mg/dL High 70-100 [facility] Comment on above: Performed By: #### 8 5499 ####[facility] [place] [address], [facility] Glucose [Mass/Vol] 122 mg/dL High 70-100 [facility] Comment on above: Performed By: #### 8 5499 ####[facility] [place] [address], [facility] PORTABLE CHEST 1 VIEWon 03-01 PORTABLE CHEST 1 VIEW [facility] Department of Radiology [address] [place] [address] ===== Patient Name: TRACIE CRAIN : 1965 Sex: M Age: Race: NA Pt. Location: [id number] Patient Status: I Ordered Date: 03/19/2019 5:50:00 PM Completed Date: 03/19/2019 06:20 PM Requesting Provider: TIMBO BLACK Attending Provider: TIMBO BLACK Report Copy To: Signs & Symptoms: O2 Desaturation History: Patient history not available Comments: Check E.T. Position Exam: PORTABLE CHEST 1 VIEW ===== PORTABLE CHEST 1 VIEW 03/19/2019 6:20 PM EDT SIGNS AND SYMPTOMS: O2 Desaturation TECHNOLOGIST COMMENTS: check ET tube position QUESTION FOR THE RADIOLOGIST: Check E.T. Position PROTOCOL: AP(PA) view was obtained. COMPARISON: Earlier today at 1651. FINDINGS: Endotracheal tube tip terminates in the upper thoracic trachea in satisfactory position. [place] catheter, chest tubes and enteric tube appear [...] findings. Electronically signed by:Yenni Osuna. Transcribed by: [email or web address], User Resident: EMILIA SHERMAN Electronically Signed by: YENNI OSUNA @ 03/20/2019 05:05 PM I personally read this/these film(s) with this resident Normal [facility] Comment on above: Order Comment: << On admission If not done in ED>> No: Do not add to previous draw PORTABLE CHEST 1 VIEW [facility] Department of Radiology [address] [place] [id number] ===== Patient Name: TRACIE CRAIN : 1965 Sex: M Age: Race: NA Pt. Location: [id number] Patient Status: I Ordered Date: 03/19/2019 4:45:00 PM Completed Date: 03/19/2019 05:01 PM Requesting Provider: TIMBO BLACK Attending Provider: TIMBO BLACK Report Copy To: Signs & Symptoms: Post CABG History: Patient history not available Comments: Check E.T. Position Exam: PORTABLE CHEST 1 VIEW ===== PORTABLE CHEST 1 VIEW 03/19/2019 5:01 PM EDT SIGNS AND SYMPTOMS: Post CABG TECHNOLOGIST COMMENTS: Post CABG QUESTION FOR THE RADIOLOGIST: Check E.T. Position PROTOCOL: AP(PA) view was obtained. COMPARISON: Chest radiograph March 19, 2019 at 1534 FINDINGS: Cardiomediastinal silhouette remains unchanged. Trachea is midline. ET tube is 8 cm from the loki. 2 right-sided chest tubes appear in satisfactory position. [place]-Sher catheter with tip projecting over the pulmonary [...] findings. Electronically signed by:Divya Collins. Transcribed by: [email or web address], User Resident: ANAI ALVARADO Electronically Signed by: DIVYA COLLINS @ 03/20/2019 11:00 AM I personally read this/these film(s) with this resident Normal [facility] Comment on above: Order Comment: << On admission If not done in ED>> No: Do not add to previous draw PORTABLE CHEST 1 VIEW [facility] Department of Radiology [address] [place] [address] [id number] ===== Patient Name: TRACIE CRAIN : 1965 Sex: M Age: Race: NA Pt. Location: [id number] Patient Status: I Ordered Date: 03/19/2019 3:55:00 PM Completed Date: 03/19/2019 04:06 PM Requesting Provider: TIMBO BLACK Attending Provider: TIMBO BLACK Report Copy To: Signs & Symptoms: INTRA OP chest ,minimally invasive mitral valve repair , replacement with cryo maze. History: Comments: INTRA OP chest ,minimally invasive mitral valve repair , replacement with cryo maze. Exam: PORTABLE CHEST 1 VIEW ===== PORTABLE CHEST 1 VIEW 03/19/2019 4:06 PM [...] tubes are in place. No appreciable pneumothorax. Shawnee-Sher catheter in place likely terminating in the [...] disease most likely representing multifocal atelectasis. * Shawnee-Sher catheter likely terminating in the proximal right main pulmonary artery. * Trace pleural fluid bilaterally. Approved by:Pierce Sherman on 03/19/2019 5:04 PM EDT. I, Yenni Osuna, have reviewed the images and report and concur with these findings. Electronically signed by:Yenni Osuna. Transcribed by: [email or web address], User Resident: EMILIA SHERMAN Electronically Signed by: YENNI OSUNA @ 03/20/2019 05:04 PM I personally read this/these film(s) with this resident Normal [facility] Comment on above: Order Comment: << On admission If not done in ED>> No: Do not add to previous draw PROTHROMBIN TIMEon 9 INR Coag (PPP) [Relative time] 1.60 {INR} High 0.91-1.16 [facility] Comment on above: [...] 5 6101 ####[facility] [facility] PT Coag (PPP) [Time] 19.1 s High 12.3-14.8 [facility] Comment on above: Order Comment: R/O P ulmonary Edema Result Comment: ALL RESULTS MUST BE INTERPRETED WITH RESPECT TO BLOOD DRAWING ARTIFACT OR DILUTION ERROR OF ANTICOAGULANT AT THE TIME OF SAMPLING. Performed By: #### 5 6101 ####[facility] INR Coag (PPP) [Relative time] 1.68 {INR} High 0.91-1.16 [facility] Comment on above: [...] CHEST 1995;108:231S-246S. Performed By: #### 8 5123, 35425 #### [facility] [address] [facility] [place] [address], [facility] PT Coag (PPP) [Time] 19.9 s High 12.3-14.8 [facility] Comment on above: Order Comment: If no t done in ED No: Do not add to previous draw Result Comment: ALL RESULTS MUST BE INTERPRETED WITH RESPECT TO BLOOD DRAWING ARTIFACT OR DILUTION ERROR OF ANTICOAGULANT AT THE TIME OF SAMPLING. Performed By: #### 8 5123, 27341 #### [facility] [address] [facility] [place] [address], [facility] INR Coag (PPP) [Relative time] 1.02 {INR} Normal 0.91-1.16 [facility] Comment on above: Order Comment: [...] CHEST 1995;108:231S-246S. Performed By: #### 0 0121, 99038, 12648, 43988, 60437 #### [facility] [address] [place] [address], [facility] PT Coag (PPP) [Time] 13.4 s Normal 12.3-14.8 [facility] Comment on above: Order Comment: If no t done in ED No: Do not add to previous draw Result Comment: ALL RESULTS MUST BE INTERPRETED WITH RESPECT TO BLOOD DRAWING ARTIFACT OR DILUTION ERROR OF ANTICOAGULANT AT THE TIME OF SAMPLING. Performed By: #### 0 0121, 39588, 03495, 60575, 13102 #### [facility] [address] [place] [address], [facility] RBC'S 2 UNITSon 03-19-2019 CROSSMATCH INTERP 1 COMP Normal [facility] Comment on above: Performed By: #### 0 0121, 92035, 08529, 85491, 31356 #### [facility] [address] [place] [address], [facility] CROSSMATCH INTERP 2 COMP Normal [facility] Comment on above: Performed By: #### 0 0121, 65435, 77291, 37672, 61383 #### [facility] [address] [place] [address], [facility] PRODUCT CODE 1 E0332 Normal [facility] Comment on above: Performed By: #### 0 0121, 98140, 30575, 16499, 34379 #### [facility] [address] [facility] [place] [address], [facility] PRODUCT CODE 2 E0336 Normal [facility] Comment on above: Performed By: #### 0 0121, 36974, 70368, 81016, 57395 #### [facility] [address] [place] [address], [facility] PRODUCT STATUS 1 RE Normal [facility] Comment on above: Result Comment: Resu lt changed by IF on 03/19/2019 08:33. The previous value was XM. Result changed by IF on 03/19/2019 16:19. The previous value was IS. Result changed by IF on 03/20/2019 09:43. The previous value was XM. Result changed by IF on 03/20/2019 09:46. The previous value was XX. Performed By: #### 0 0121, 09869, 58630, 42313, 45898 #### [facility] [address] [place] [address], [facility] PRODUCT STATUS 2 RE Normal [facility] Comment on above: Result Comment: Resu lt changed by IF on 03/19/2019 08:33. The previous value was XM. Result changed by IF on 03/19/2019 16:19. The previous value was IS. Result changed by IF on 03/20/2019 09:43. The previous value was XM. Result changed by IF on 03/20/2019 11:11. The previous value was XX. Performed By: #### 0 0121, 50979, 93183, 22157, 36971 #### [facility] [address] [place] [address], [facility] UNIT ABO 1 O Normal [facility] Comment on above: Performed By: #### 0 0121, 34921, 12411, 55716, 12120 #### [facility] [address] [place] [address], [facility] UNIT ABO 2 O Normal [facility] Comment on above: Performed By: #### 0 0121, 10070, 15367, 62163, 70885 #### [facility] [address] [place] [address], [facility] UNIT ID 1 [id number] Normal [facility] Comment on above: Performed By: #### 0 0121, 98759, 76528, 14635, 66256 #### [facility] [address] [facility] [place] [address], [facility] UNIT ID 2 [id number] Normal [facility] Comment on above: Performed By: #### 0 0121, 34299, 19905, 25292, 12061 #### [facility] [address] [place] [address], [place] UNIT RH 1 Negative Normal [facility] Comment on above: Performed By: #### 0 0121, 73315, 24479, 64572, 63679 #### [facility] [address] [place] [address], [place] UNIT RH 2 Negative Normal [facility] Comment on above: Performed By: #### 0 0121, 27300, 43439, 81670, 49423 #### [facility] [address] [place] [address], [facility] *MRSA/MSSA DNA NASALon 03-18 *MRSA/MSSA DNA NASAL Clinical Report: (D ) Specimen: NASAL SWAB Collected: 03/18/2019 17:05 Status: Final Last Updated: 03/19/2019 12:12 MSSA DNA (Final) Negative MRSA DNA (Final) Negative Normal [facility] Comment on above: Performed By: #### 8 5123, 87248 #### [facility] [address] [place] [address], [facility] APTTon 03-18-2019 aPTT Coag (Bld) [Time] 58.1 s High 25.0-35.0 [facility] Comment on above: [...] OF HEPARIN. Performed By: #### 0 0121, 19505, 75129, 58820, 57631 #### [facility] [address] [place] [address], [facility] aPTT Coag (Bld) [Time] 67.7 s High 25.0-35.0 [facility] Comment on above: [...] OF HEPARIN. Performed By: #### 0 0121, 77756, 10474, 86332, 25744 #### [facility] [address] aPTT Coag (Bld) [Time] 74.8 s Critically high 25.0-35.0 [facility] Comment on above: [...] AT 0609. Performed By: #### 0 0121, 94901, 12954, 09530, 13786 #### [facility] [address] BASIC METABOLIC PANELon 06- Calcium [Mass/Vol] 9.2 mg/dL Normal 8.6-10.3 [facility] Comment on above: Order Comment: << ON ADMISSION If not done in ED>> No: Do not add to previous draw Performed By: #### 0 0121, 10119, 38765, 54374, 61874 #### [facility] [address] [place] [address], [facility] Chloride [Moles/Vol] 105 mmol/L Normal 98-107 [facility] Comment on above: Order Comment: << ON ADMISSION If not done in ED>> No: Do not add to previous draw Performed By: #### 0 0121, 62885, 24746, 14340, 08856 #### [facility] [address] [place] [address], [facility] CO2 [Moles/Vol] 27 mmol/L Normal 21-31 [facility] Comment on above: Order Comment: << ON ADMISSION If not done in ED>> No: Do not add to previous draw Performed By: #### 0 0121, 68503, 02085, 51037, 39043 #### [facility] [address] [place] [address], [facility] Creatinine [Mass/Vol] 1.11 mg/dL Normal 0.70-1.30 [facility] Comment on above: Order Comment: << ON ADMISSION If not done in ED>> No: Do not add to previous draw Performed By: #### 0 0121, 05056, 42813, 56788, 16236 #### [facility] [address] [place] [address], [facility] GFR/1.73 sq M predicted among blacks MDRD (S/P/Bld) [Vol rate/Area] mL/min/{1.73_m2} Normal >60 [facility] Comment on above: Order Comment: << ON ADMISSION If not done in ED>> No: Do not add to previous draw Performed By: #### 0 0121, 53269, 04088, 64952, 24605 #### [facility] [address] [place] [address], [facility] GFR/1.73 sq M predicted among non-blacks MDRD (S/P/Bld) [Vol rate/Area] mL/min/{1.73_m2} Normal >60 [facility] Comment on above: Order Comment: << ON ADMISSION If not done in ED>> No: Do not add to previous draw Performed By: #### 0 0121, 67373, 01431, 16633, 47860 #### [facility] [address] [place] [address], [place] Glucose [Mass/Vol] 101 mg/dL High 70-100 [facility] Comment on above: Order Comment: << ON ADMISSION If not done in ED>> No: Do not add to previous draw Performed By: #### 0 0121, 32457, 98212, 62730, 31649 #### [facility] [address] [place] [address], [place] Potassium [Moles/Vol] 4.2 mmol/L Normal 3.5-5.1 [facility] Comment on above: Order Comment: << ON ADMISSION If not done in ED>> No: Do not add to previous draw Performed By: #### 0 0121, 60965, 39889, 14574, 38486 #### [facility] [address] [place] [address], [place] Sodium [Moles/Vol] 136 mmol/L Normal 136-145 [facility] Comment on above: Order Comment: << ON ADMISSION If not done in ED>> No: Do not add to previous draw Performed By: #### 0 0121, 86203, 69149, 25627, 17099 #### [facility] [address] [place] [address], [place] Urea nitrogen [Mass/Vol] 15 mg/dL Normal 7-25 [facility] Comment on above: Order Comment: << ON ADMISSION If not done in ED>> No: Do not add to previous draw Performed By: #### 0 0121, 55297, 90521, 75172, 99995 #### [facility] [address] [place] [address], [place] CBC COMPLETE BLOOD COUNTon 0 - Erythrocyte distribution width (RBC) [Ratio] 12.8 % Normal 11.5-15.0 [facility] Comment on above: Order Comment: << ON ADMISSION If not done in ED>> No: Do not add to previous draw Performed By: #### 0 0121, 26113, 04019, 90114, 03234 #### [facility] [address] [place] [address], [facility] Hematocrit (Bld) [Volume fraction] 55.1 % High 39.0-50.0 [facility] Comment on above: Order Comment: << ON ADMISSION If not done in ED>> No: Do not add to previous draw Performed By: #### 0 0121, 56561, 87241, 07162, 33411 #### [facility] [address] [place] [address], [facility] Hemoglobin (Bld) [Mass/Vol] 17.5 g/dL High 13.0-17.0 [facility] Comment on above: Order Comment: << ON ADMISSION If not done in ED>> No: Do not add to previous draw Performed By: #### 0 0121, 22587, 78590, 76299, 20589 #### [facility] [address] [place] [address], [facility] MCH (RBC) [Entitic mass] 28.6 pg Normal 27.0-33.0 [facility] Comment on above: Order Comment: << ON ADMISSION If not done in ED>> No: Do not add to previous draw Performed By: #### 0 0121, 40534, 00797, 07028, 09461 #### [facility] [address] [place] [address], [facility] MCHC (RBC) [Mass/Vol] 31.8 g/dL Low 32.0-35.0 [facility] Comment on above: Order Comment: << ON ADMISSION If not done in ED>> No: Do not add to previous draw Performed By: #### 0 0121, 99998, 65347, 73853, 82847 #### [facility] [address] MCV (RBC) [Entitic vol] 90.0 fL Normal 82.0-98.0 [facility] Comment on above: Order Comment: << ON ADMISSION If not done in ED>> No: Do not add to previous draw Performed By: #### 0 0121, 15670, 65106, 50770, 50335 #### [facility] [address] [place] [address], [facility] Nucleated RBC/100 WBC (Bld) [Ratio] 0 % Normal 0-0 [facility] Comment on above: Order Comment: << ON ADMISSION If not done in ED>> No: Do not add to previous draw Performed By: #### 0 0121, 30809, 39317, 72406, 46305 #### [facility] [address] [place] [address], [facility] PLAT CNT 286 10*3/uL Normal 150-400 [facility] Comment on above: Order Comment: << ON ADMISSION If not done in ED>> No: Do not add to previous draw Performed By: #### 0 0121, 19030, 73463, 56210, 01342 #### [facility] [address] [place] [address], [facility] RBC (Bld) [#/Vol] 6.12 10*6/uL High 4.20-5.70 [facility] Comment on above: Order Comment: << ON ADMISSION If not done in ED>> No: Do not add to previous draw Performed By: #### 0 0121, 49694, 75748, 53454, 74501 #### [facility] [address] [place] [address], [facility] WBC (Bld) [#/Vol] 9.33 10*3/uL Normal 4.00-10.60 [facility] Comment on above: Order Comment: << ON ADMISSION If not done in ED>> No: Do not add to previous draw Performed By: #### 0 0121, 21537, 36820, 28189, 94054 #### [facility] [address] [place] [address], [facility] MAGNESIUM BLOODon 03-18-2019 Magnesium [Mass/Vol] 2.4 mg/dL Normal 1.9-2.7 [facility] Comment on above: Performed By: #### 0 0121, 59863, 07721, 45232, 79909 #### [facility] [address] [place] [address], [facility] TYPE AND SCREENon 03-18-2019 ABO INTERPRETATION O Normal [facility] Comment on above: Performed By: #### 0 0121, 53542, 74758, 04473, 67830 #### [facility] [address] [place] [address], [facility] RH INTERPRETATION Negative Normal [facility] Comment on above: Performed By: #### 0 0121, 39972, 48425, 77318, 42768 #### [facility] [address] [place], [place] [address] [place] [address] UFH HEPARIN ASSAYon 03-18-20 19 UNFRACTIONATED HEPARIN 0.19 IU/mL Low 0.30-0.70 [facility] Comment on above: Order Comment: If no t done in ED No: Do not add to previous draw Result Comment: [place] roxaban and Apixaban will interfere with the anti Xa assay used to monitor UFH and LMWH. Performed By: #### 0 0121, 78469, 19596, 88006, 12348 #### [facility] [address] [place] [address], [facility] UNFRACTIONATED HEPARIN 0.29 IU/mL Low 0.30-0.70 [facility] Comment on above: Order Comment: << ON ADMISSION If not done in ED>> No: Do not add to previous draw Result Comment: [place] roxaban and Apixaban will interfere with the anti Xa assay used to monitor UFH and LMWH. Performed By: #### 0 0121, 69570, 16460, 76570, 32939 #### [facility] [address] [place] [address], [place] UNFRACTIONATED HEPARIN 0.25 IU/mL Low 0.30-0.70 [facility] Comment on above: Result Comment: [place] roxaban and Apixaban will interfere with the anti Xa assay used to monitor UFH and LMWH. Performed By: #### 0 0121, 15601, 96624, 89327, 27206 #### [facility] [address] [place] [address], [place] URINALYSISon 03-18-2019 Appearance (U) CLEAR Normal CLEAR [facility] Comment on above: Order Comment: If no t done in ED No: Do not add to previous draw Performed By: #### 0 0121, 61109, 25325, 99870, 80086 #### [facility] [address] [place] [address], [place] Bilirubin [Mass/Vol] Negative Normal NEGATIVE [facility] Comment on above: Order Comment: If no t done in ED No: Do not add to previous draw Performed By: #### 0 0121, 61621, 45232, 66033, 52444 #### [facility] [address] [place] [address], [place] BLOOD Negative Normal NEGATIVE [facility] Comment on above: Order Comment: If no t done in ED No: Do not add to previous draw Performed By: #### 0 0121, 09384, 60500, 70773, 31281 #### [facility] [address] [place] [address], [place] Color (U) YELLOW Normal YELLOW [facility] Comment on above: Order Comment: If no t done in ED No: Do not add to previous draw Performed By: #### 0 0121, 95084, 89385, 40568, 12368 #### [facility] [address] [place] [address], [place] Glucose [Mass/Vol] Negative Normal NEGATIVE [facility] Comment on above: Order Comment: If no t done in ED No: Do not add to previous draw Performed By: #### 0 0121, 03730, 87049, 58348, 55445 #### [facility] [address] [place] [address], [facility] KETONE Negative Normal NEGATIVE [facility] Comment on above: Order Comment: If no t done in ED No: Do not add to previous draw Performed By: #### 0 0121, 11198, 26055, 11541, 87730 #### [facility] [address] [place] [address], [place] LEUK RADHA Negative Normal NEGATIVE [facility] Comment on above: Order Comment: If no t done in ED No: Do not add to previous draw Performed By: #### 0 0121, 59451, 15380, 15278, 33791 #### [facility] [address] [place] [address], [facility] MICRO NOT DONE negative chemical reactions unless requested in original order Normal [facility] Comment on above: Order Comment: If no t done in ED No: Do not add to previous draw Performed By: #### 0 0121, 01403, 96464, 98730, 40777 #### [facility] [address] [place] [address], [place] Nitrite Ql (U) Negative Normal NEGATIVE [facility] Comment on above: Order Comment: If no t done in ED No: Do not add to previous draw Performed By: #### 0 0121, 72344, 72567, 98052, 85100 #### [facility] [address] [place] [address], [place] pH (Bld) 6.0 Normal 5.0-8.0 [facility] Comment on above: Order Comment: If no t done in ED No: Do not add to previous draw Performed By: #### 0 0121, 48528, 74999, 21244, 75353 #### [facility] [address] Protein (U) [Mass/Vol] Negative Normal NEGATIVE [facility] Comment on above: Order Comment: If no t done in ED No: Do not add to previous draw Performed By: #### 0 0121, 68100, 04498, 63489, 99890 #### [facility] [address] [facility] SPEC GRAV 1.017 Normal 1.015-1.020 [facility] Comment on above: Order Comment: If no t done in ED No: Do not add to previous draw Performed By: #### 0 0121, 80683, 14330, 84219, 55033 #### [facility] [address] APTTon 03-17-2019 aPTT Coag (Bld) [Time] 67.3 s High 25.0-35.0 [facility] Comment on above: [...] THIS PURPOSE. Performed By: #### 0 0121, 27240, 00328, 08598, 98503 #### [facility] [address] [facility] BASIC METABOLIC PANELon 02-28 Calcium [Mass/Vol] 9.1 mg/dL Normal 8.6-10.3 [facility] Comment on above: Order Comment: No: D o not add to previous draw Performed By: #### 0 0121, 91099, 89992, 47742, 90105 #### [facility] [address] [place] [address], [facility] Chloride [Moles/Vol] 101 mmol/L Normal 98-107 [facility] Comment on above: Order Comment: No: D o not add to previous draw Performed By: #### 0 0121, 45641, 43088, 61405, 52990 #### [facility] [address] [place] [address], [place] CO2 [Moles/Vol] 24 mmol/L Normal 21-31 [facility] Comment on above: Order Comment: No: D o not add to previous draw Performed By: #### 0 0121, 95823, 50795, 83729, 86476 #### [facility] [address] [place] [address], [place] Creatinine [Mass/Vol] 1.02 mg/dL Normal 0.70-1.30 [facility] Comment on above: Order Comment: No: D o not add to previous draw Performed By: #### 0 0121, 05628, 89055, 45865, 76655 #### [facility] [address] [place] [address], [place] GFR/1.73 sq M predicted among blacks MDRD (S/P/Bld) [Vol rate/Area] mL/min/{1.73_m2} Normal >60 [facility] Comment on above: Order Comment: No: D o not add to previous draw Performed By: #### 0 0121, 72512, 21328, 45167, 37550 #### [facility] [address] [place] [address], [place] GFR/1.73 sq M predicted among non-blacks MDRD (S/P/Bld) [Vol rate/Area] mL/min/{1.73_m2} Normal >60 [facility] Comment on above: Order Comment: No: D o not add to previous draw Performed By: #### 0 0121, 46841, 96135, 80880, 44950 #### [facility] [address] [place] [address], [place] Glucose [Mass/Vol] 102 mg/dL High 70-100 [facility] Comment on above: Order Comment: No: D o not add to previous draw Performed By: #### 0 0121, 09156, 53421, 41558, 65027 #### [facility] [address] [place] [address], [facility] Potassium [Moles/Vol] 3.7 mmol/L Normal 3.5-5.1 [facility] Comment on above: Order Comment: No: D o not add to previous draw Performed By: #### 0 0121, 01496, 22418, 39241, 34170 #### [facility] [address] [place] [address], [facility] Sodium [Moles/Vol] 135 mmol/L Low 136-145 [facility] Comment on above: Order Comment: No: D o not add to previous draw Performed By: #### 0 0121, 60922, 63096, 20582, 02080 #### [facility] [address] [place] [address], [facility] Urea nitrogen [Mass/Vol] 18 mg/dL Normal 7-25 [facility] Comment on above: Order Comment: No: D o not add to previous draw Performed By: #### 0 0121, 98564, 11857, 01147, 46635 #### [facility] [address] [place], [place] [address] [place] [address] CBC COMPLETE BLOOD COUNTon 0 - Erythrocyte distribution width (RBC) [Ratio] 12.9 % Normal 11.5-15.0 [facility] Comment on above: Order Comment: No: D o not add to previous draw Performed By: #### 0 0121, 36120, 92968, 34638, 94319 #### [facility] [address] [place] [address], [facility] Hematocrit (Bld) [Volume fraction] 50.6 % High 39.0-50.0 [facility] Comment on above: Order Comment: No: D o not add to previous draw Performed By: #### 0 0121, 23314, 79270, 38232, 03203 #### [facility] [address] [place] [address], [facility] Hemoglobin (Bld) [Mass/Vol] 16.1 g/dL Normal 13.0-17.0 [facility] Comment on above: Order Comment: No: D o not add to previous draw Performed By: #### 0 0121, 53131, 34729, 69494, 96788 #### [facility] [address] [place] [address], [facility] MCH (RBC) [Entitic mass] 28.6 pg Normal 27.0-33.0 [facility] Comment on above: Order Comment: No: D o not add to previous draw Performed By: #### 0 0121, 80380, 54402, 59960, 09618 #### [facility] [address] [place] [address], [facility] MCHC (RBC) [Mass/Vol] 31.8 g/dL Low 32.0-35.0 [facility] Comment on above: Order Comment: No: D o not add to previous draw Performed By: #### 0 0121, 01653, 51308, 88068, 26210 #### [facility] [address] [facility] [place] [address], [facility] MCV (RBC) [Entitic vol] 90.0 fL Normal 82.0-98.0 [facility] Comment on above: Order Comment: No: D o not add to previous draw Performed By: #### 0 0121, 48814, 79922, 32098, 37720 #### [facility] [address] [address], [facility] Nucleated RBC/100 WBC (Bld) [Ratio] 0 % Normal 0-0 [facility] Comment on above: Order Comment: No: D o not add to previous draw Performed By: #### 0 0121, 66039, 89030, 53027, 75239 #### [facility] [address] [place] [address], [facility] PLAT CNT 274 10*3/uL Normal 150-400 [facility] Comment on above: Order Comment: No: D o not add to previous draw Performed By: #### 0 0121, 68698, 91237, 03151, 28731 #### [facility] [address] [place] [address], [facility] RBC (Bld) [#/Vol] 5.62 10*6/uL Normal 4.20-5.70 [facility] Comment on above: Order Comment: No: D o not add to previous draw Performed By: #### 0 0121, 98345, 99362, 25468, 43528 #### [facility] [address] [facility] [place] [address], [facility] WBC (Bld) [#/Vol] 9.65 10*3/uL Normal 4.00-10.60 [facility] Comment on above: Order Comment: No: D o not add to previous draw Performed By: #### 0 0121, 40274, 79407, 72245, 21698 #### [facility] [address] Cardiovascular Lab Reporton 03-17-2019 Cardiovascular Lab Report [facility] MR #: [id number] Department of Physician: Madan Parsons MAmanda Division of Service Date: 03/16/2019 Cardiology Birthdate: 1965 Adult Cardiovascular Room #: 3AB [id number] [facility] [address] [place] [address] Cardiovascular Laboratory Report CLINICAL PRESENTATION: The patient is a 53-year-old male, who was transferred from the [facility], due to his symptoms of shortness of [...] guidance and a micropuncture access technique, a 6-Austrian sheath was placed in the right internal jugular vein. A Clark catheter was then advanced under fluoroscopic hemodynamic monitor to the right atrium. Pressure was obtained in the right atrium, right ventricle, pulmonary artery, pulmonary capillary wedge position. Oxygen saturations drawn from the pulmonary artery and the Nanci cardiac output and cardiac index were calculated. The Clark catheter was then removed. Next, a 6-Austrian Terumo Glidesheath slender was placed in the right radial artery. The radial anti-vasospasm cocktail of nitroglycerin 100 mcg was administered through the sheath. All catheter exchanges were made over the Magic Torque guidewire. A 5-Austrian [place] catheter was used to engage the left [...] Day M.D. Date Trans: 03/17/2019 05:03 Jhoan/bessie [id number] cc: Titus Villegas M.D. [address] [address] Normal [facility] MAGNESIUM BLOODon 03-17-2019 Magnesium [Mass/Vol] 2.2 mg/dL Normal 1.9-2.7 [facility] Comment on above: Order Comment: No: D o not add to previous draw Performed By: #### 0 0121, 67241, 99446, 88783, 90219 #### [facility] [address] UFH HEPARIN ASSAYon 03-17-20 19 UNFRACTIONATED HEPARIN 0.30 IU/mL Normal 0.30-0.70 [facility] Comment on above: Result Comment: [place] roxaban and Apixaban will interfere with the anti Xa assay used to monitor UFH and LMWH. Performed By: #### 0 0121, 55917, 24114, 86360, 29555 #### [facility] [address] [place] [address], [facility] APTTon 03-16-2019 aPTT Coag (Bld) [Time] 63.7 s High 25.0-35.0 [facility] Comment on above: [...] OF HEPARIN. Performed By: #### 0 0121, 97371, 67738, 89118, 07280 #### [facility] [address] [place] [address], [facility] aPTT Coag (Bld) [Time] 87.5 s Critically high 25.0-35.0 [facility] Comment on above: [...] OF HEPARIN. Performed By: #### 0 0121, 49530, 89115, 55751, 03093 #### [facility] [address] [place] [address], [facility] Cardiovascular Lab Reporton 03-16-2019 Cardiovascular Lab Report [facility] Patient Name: [facility] Jeri MR #: [id number] Department of Physician: Ilan Danielson MD Division of Service Date: 03/16/2019 Cardiology Birthdate: 1965 Adult Cardiovascular Room #: 3AB [id number] [place] [address] Cardiovascular Laboratory Report PROCEDURE: Transesophageal echocardiogram and cardioversion. INDICATION: Atrial fibrillation. PROCEDURE IN DETAIL: An informed consent was obtained from the patient after explaining indications, risks, benefits, and alternatives. The patient understood and agreed and signed the consent form. The patient [place] and GERMAN/transesophageal echocardiogram was performed under conscious [...] Danielson MD Date Trans: 03/16/2019 07:28 P/bessie [id number] cc: Titus Villegas M.D. [address] [address] Normal [facility] ERYTHROPOIETIN [id number] 03-16 ERYTHROPOIETIN 7 mU/mL Normal 4-27 The [...] benefit from therapy with recombinant EPO ([id number]). Performed by [employer], [address] [place] [id number] [email or web address], Jann Somers MD - Lab. Director UFH HEPARIN ASSAYon 03-16-20 19 UNFRACTIONATED HEPARIN 0.43 IU/mL Normal 0.30-0.70 [facility] Comment on above: Result Comment: [place] roxaban and Apixaban will interfere with the anti Xa assay used to monitor UFH and LMWH. Performed By: #### 0 0121, 54005, 45872, 98131, 85533 #### [facility] [address] UNFRACTIONATED HEPARIN 0.53 IU/mL Normal 0.30-0.70 [facility] Comment on above: Result Comment: [place] roxaban and Apixaban will interfere with the anti Xa assay used to monitor UFH and LMWH. Performed By: #### 0 0121, 75952, 91154, 12198, 72791 #### [facility] [address] [place] [address], [facility] APTTon 03-15-2019 aPTT Coag (Bld) [Time] 74.0 s Critically high 25.0-35.0 [facility] Comment on above: [...] AT 2127 Performed By: #### 0 0121, 56222, 07602, 60633, 69148 #### [facility] [address] [facility] [place] [address], [facility] aPTT Coag (Bld) [Time] 84.1 s Critically high 25.0-35.0 [facility] Comment on above: [...] OF HEPARIN. Performed By: #### 0 0121, 47391, 79359, 27998, 12940 #### [facility] [address] [place] [address], [place] aPTT Coag (Bld) [Time] 59.2 s High 25.0-35.0 [facility] Comment on above: [...] THIS PURPOSE. Performed By: #### 0 0121, 82265, 41561, 46484, 06584 #### [facility] [address] [place] [address], [facility] BASIC METABOLIC PANELon - Calcium [Mass/Vol] 9.9 mg/dL Normal 8.6-10.3 [facility] Comment on above: Order Comment: << On admission If not done in ED>> No: Do not add to previous draw Performed By: #### 0 0121, 77219, 61775, 28022, 77686 #### [facility] [address] [place] [address], [facility] Chloride [Moles/Vol] 101 mmol/L Normal 98-107 [facility] Comment on above: Order Comment: << On admission If not done in ED>> No: Do not add to previous draw Performed By: #### 0 0121, 67223, 05599, 81710, 19012 #### [facility] [address] [place] [address], [facility] CO2 [Moles/Vol] 25 mmol/L Normal 21-31 [facility] Comment on above: Order Comment: << On admission If not done in ED>> No: Do not add to previous draw Performed By: #### 0 0121, 48947, 52186, 25223, 86820 #### [facility] [address] [place] [address], [facility] Creatinine [Mass/Vol] 1.02 mg/dL Normal 0.70-1.30 [facility] Comment on above: Order Comment: << On admission If not done in ED>> No: Do not add to previous draw Performed By: #### 0 0121, 45261, 47734, 08685, 78623 #### [facility] [address] [place] [address], [facility] GFR/1.73 sq M predicted among blacks MDRD (S/P/Bld) [Vol rate/Area] mL/min/{1.73_m2} Normal >60 [facility] Comment on above: Order Comment: << On admission If not done in ED>> No: Do not add to previous draw Performed By: #### 0 0121, 29770, 53657, 17517, 97728 #### [facility] [address] [place] [address], [facility] GFR/1.73 sq M predicted among non-blacks MDRD (S/P/Bld) [Vol rate/Area] mL/min/{1.73_m2} Normal >60 [facility] Comment on above: Order Comment: << On admission If not done in ED>> No: Do not add to previous draw Performed By: #### 0 0121, 24217, 31633, 13804, 04426 #### [facility] [address] [place] [address], [facility] Glucose [Mass/Vol] 100 mg/dL Normal 70-100 [facility] Comment on above: Order Comment: << On admission If not done in ED>> No: Do not add to previous draw Performed By: #### 0 0121, 74393, 59601, 63884, 16357 #### [facility] [address] [place] [address], [place] Potassium [Moles/Vol] 4.0 mmol/L Normal 3.5-5.1 [facility] Comment on above: Order Comment: << On admission If not done in ED>> No: Do not add to previous draw Performed By: #### 0 0121, 05449, 29928, 72761, 75767 #### [facility] [address] Sodium [Moles/Vol] 135 mmol/L Low 136-145 [facility] Comment on above: Order Comment: << On admission If not done in ED>> No: Do not add to previous draw Performed By: #### 0 0121, 94752, 23005, 95079, 23610 #### [facility] [address] [place] [address], [facility] Urea nitrogen [Mass/Vol] 24 mg/dL Normal 7-25 [facility] Comment on above: Order Comment: << On admission If not done in ED>> No: Do not add to previous draw Performed By: #### 0 0121, 82639, 15578, 54264, 34182 #### [facility] [address] CBC COMPLETE BLOOD COUNTon - Erythrocyte distribution width (RBC) [Ratio] 13.1 % Normal 11.5-15.0 [facility] Comment on above: Order Comment: << On admission If not done in ED>> No: Do not add to previous draw Performed By: #### 0 0121, 72619, 97406, 65561, 35037 #### [facility] [address] Hematocrit (Bld) [Volume fraction] 53.6 % High 39.0-50.0 [facility] Comment on above: Order Comment: << On admission If not done in ED>> No: Do not add to previous draw Performed By: #### 0 0121, 57002, 79377, 97545, 89105 #### [facility] [address] [place] [address], [facility] Hemoglobin (Bld) [Mass/Vol] 17.4 g/dL High 13.0-17.0 [facility] Comment on above: Order Comment: << On admission If not done in ED>> No: Do not add to previous draw Performed By: #### 0 0121, 34826, 46093, 86701, 30752 #### [facility] [address] MCH (RBC) [Entitic mass] 28.6 pg Normal 27.0-33.0 [facility] Comment on above: Order Comment: << On admission If not done in ED>> No: Do not add to previous draw Performed By: #### 0 0121, 13489, 19965, 23632, 72686 #### [facility] [address] [facility] MCHC (RBC) [Mass/Vol] 32.5 g/dL Normal 32.0-35.0 [facility] Comment on above: Order Comment: << On admission If not done in ED>> No: Do not add to previous draw Performed By: #### 0 0121, 01409, 74326, 65180, 71044 #### [facility] [address] MCV (RBC) [Entitic vol] 88.0 fL Normal 82.0-98.0 [facility] Comment on above: Order Comment: << On admission If not done in ED>> No: Do not add to previous draw Performed By: #### 0 0121, 23900, 05038, 12436, 30265 #### [facility] [address] Nucleated RBC/100 WBC (Bld) [Ratio] 0 % Normal 0-0 [facility] Comment on above: Order Comment: << On admission If not done in ED>> No: Do not add to previous draw Performed By: #### 0 0121, 89995, 87731, 35087, 65877 #### [facility] [address] PLAT CNT 286 10*3/uL Normal 150-400 [facility] Comment on above: Order Comment: << On admission If not done in ED>> No: Do not add to previous draw Performed By: #### 0 0121, 47888, 97768, 69519, 24028 #### [facility] [address] [place] [address], [facility] RBC (Bld) [#/Vol] 6.09 10*6/uL High 4.20-5.70 [facility] Comment on above: Order Comment: << On admission If not done in ED>> No: Do not add to previous draw Performed By: #### 0 0121, 70750, 74249, 14080, 60772 #### [facility] [address] [place] [address], [facility] WBC (Bld) [#/Vol] 10.49 10*3/uL Normal 4.00-10.60 [facility] Comment on above: Order Comment: << On admission If not done in ED>> No: Do not add to previous draw Performed By: #### 0 0121, 38465, 98552, 20093, 46495 #### [facility] [address] [place] [address], [facility] LIPID PROFILEon 03-15-2019 Cholesterol [Mass/Vol] 140 mg/dL Normal 120-200 [facility] Comment on above: Order Comment: << On admission If not done in ED>> No: Do not add to previous draw Result Comment: CHOL ESTEROL REFERENCE RANGE: 20 YEARS AND OLDER CARDIOVASCULAR RISK Less than 200 mg/dl Low Risk 200 to 239 mg/dl Borderline Risk 240 mg/dl and greater High Risk Performed By: #### 0 0121, 93516, 19694, 50185, 31814 #### [facility] [address] [place] [address], [facility] Cholesterol in HDL [Mass/Vol] 38 mg/dL Normal 23-92 [facility] Comment on above: [...] High Risk Performed By: #### 0 0121, 92134, 12227, 27131, 12603 #### [facility] [address] [place] [address], [facility] Cholesterol in LDL [Mass/Vol] 88 mg/dL Normal 0-130 [facility] Comment on above: Order Comment: << On admission If not done in ED>> No: Do not add to previous draw Result Comment: LDL IS A CALCULATION LDL IS ONLY VALID IF THE TRIG IS LESS THAN 400. Performed By: #### 0 0121, 11957, 34101, 46400, 51762 #### [facility] [address] [place] [address], [facility] Cholesterol.total/Ch olesterol in HDL [Mass ratio] 3.7 {ratio} Normal .0-4.5 [facility] Comment on above: Order Comment: << On admission If not done in ED>> No: Do not add to previous draw Performed By: #### 0 0121, 43678, 36656, 35754, 20096 #### [facility] [address] [place] [address], [facility] NON-HDL CHOLESTEROL 102 mg/dL Normal [facility] Comment on above: Order Comment: << On admission If not done in ED>> No: Do not add to previous draw Performed By: #### 0 0121, 47384, 86679, 23000, 25108 #### [facility] [address] [place] [address], [facility] Triglyceride [Mass/Vol] 70 mg/dL Normal 40-149 [facility] Comment on above: Order Comment: << On admission If not done in ED>> No: Do not add to previous draw Result Comment: TRIG LYCERIDE REFERENCE RANGE: 20 YEARS AND OLDER CARDIOVASCULAR RISK LESS THAN 150 mg/dl LOW RISK 150 TO 199 mg/dl BORDERLINE RISK 200 mg/dl AND GREATER HIGH RISK Performed By: #### 0 0121, 57550, 20525, 39668, 37979 #### [facility] [address] [place] [address], [facility] VLDL CHOL 14 mg/dL Normal 0-40 [facility] Comment on above: Order Comment: << On admission If not done in ED>> No: Do not add to previous draw Performed By: #### 0 0121, 53396, 89919, 23244, 68179 #### [facility] [address] TROPONIN-Ion 03-15-2019 Troponin I.cardiac [Mass/Vol] 0.01 ng/mL Normal 0.00-0.04 [facility] Comment on above: Order Comment: << On admission If not done in ED>> No: Do not add to previous draw Result Comment: REFE RENCE RANGES: 0.00 - 0.04 ng/ml NORMAL 0.05 - 0.50 ng/ml INDETERMINATE > 0.50 ng/ml CONSISTENT WITH AN M.I. Performed By: #### 0 0121, 37476, 47671, 94945, 16097 #### [facility] [address] [facility] UFH HEPARIN ASSAYon 03-15-20 19 UNFRACTIONATED HEPARIN 0.62 IU/mL Normal 0.30-0.70 [facility] Comment on above: Order Comment: No: D o not add to previous draw Result Comment: [place] roxaban and Apixaban will interfere with the anti Xa assay used to monitor UFH and LMWH. Performed By: #### 0 0121, 63081, 06199, 12391, 36728 #### [facility] [address] UNFRACTIONATED HEPARIN 0.92 IU/mL Critically high 0.30-0.70 [facility] Comment on above: Result Comment: [place] roxaban and Apixaban will interfere with the anti Xa assay used to monitor UFH and LMWH. RESULTS CHECKED AND CALLED. ACCURATELY READ BACK BY DAXA MONTEJO RN @ 1309 Performed By: #### 0 0121, 98207, 85213, 12610, 83912 #### [facility] [address] [place] [address], [facility] UNFRACTIONATED HEPARIN 0.90 IU/mL Critically high 0.30-0.70 [facility] Comment on above: Result Comment: [place] roxaban and Apixaban will interfere with the anti Xa assay used to monitor UFH and LMWH. RESULTS CHECKED AND CALLED. ACCURATELY READ BACK BY DAXA MONTEJO RN @ 0822 Performed By: #### 0 0121, 08629, 84425, 10579, 14747 #### [facility] [address] APTTon 03-14-2019 aPTT Coag (Bld) [Time] 32.8 s Normal 25.0-35.0 [facility] Comment on above: [...] #### [facility] [address] [facility] BNP (B-TYPE NATRIURETIC PEPT PACHECO)on 03-14-2019 Natriuretic peptide B (Bld) [Mass/Vol] 112 pg/mL High 0-100 [facility] Comment on above: Order Comment: If no t done in ED No: Do not add to previous draw Result Comment: Give n the appropriate clinical setting a BNP result of >100 pg/mL indicates congestive heart failure. Performed By: #### 8 5123, 22717 #### [facility] [address] [place] [address], [facility] CBC W/DIFFon 03-14-2019 ABS BASOPHILS 0.1 10*3/uL Normal 0.0-0.2 [facility] Comment on above: Order Comment: If no t done in ED No: Do not add to previous draw Performed By: #### 5 0103 #### [facility] [address] [place] [address], [facility] ABS IMM GRANS 0.1 10*3/uL Normal 0.0-0.2 [facility] Comment on above: Order Comment: If no t done in ED No: Do not add to previous draw Performed By: #### 5 0103 #### [facility] [address] [place] [address], [facility] ABS NEUTROPHILS 7.1 10*3/uL Normal 1.6-7.6 [facility] Comment on above: Order Comment: If no t done in ED No: Do not add to previous draw Performed By: #### 5 0103 #### [facility] [address] [facility] [place] [address], [facility] Basophils/100 WBC (Bld) 1.0 % Normal 0.0-1.0 [facility] Comment on above: Order Comment: If no t done in ED No: Do not add to previous draw Performed By: #### 5 0103 #### [facility] [address] [facility] [place] [address], [facility] Eosinophils (Bld) [#/Vol] 0.3 10*3/uL Normal 0.0-0.5 [facility] Comment on above: Order Comment: If no t done in ED No: Do not add to previous draw Performed By: #### 5 0103 #### [facility] [address] [facility] [address], [facility] Eosinophils/100 WBC (Bld) 2.8 % Normal 0.0-6.0 [facility] Comment on above: Order Comment: If no t done in ED No: Do not add to previous draw Performed By: #### 5 0103 #### [facility] [address] [place] [address], [facility] Erythrocyte distribution width (RBC) [Ratio] 13.2 % Normal 11.5-15.0 [facility] Comment on above: Order Comment: If no t done in ED No: Do not add to previous draw Performed By: #### 5 0103 #### [facility] [address] [place] [address], [facility] Hematocrit (Bld) [Volume fraction] 53.8 % High 39.0-50.0 [facility] Comment on above: Order Comment: If no t done in ED No: Do not add to previous draw Performed By: #### 5 0103 #### [facility] [address] [place] [address], [facility] Hemoglobin (Bld) [Mass/Vol] 17.2 g/dL High 13.0-17.0 [facility] Comment on above: Order Comment: If no t done in ED No: Do not add to previous draw Performed By: #### 5 0103 #### [facility] [address] [place] [address], [facility] IMMATURE GRANS 0.5 % Normal 0.0-1.0 [facility] Comment on above: Order Comment: If no t done in ED No: Do not add to previous draw Performed By: #### 5 0103 #### [facility] [address] [place] [address], [facility] Lymphocytes (Bld) [#/Vol] 2.4 10*3/uL Normal 1.2-4.0 [facility] Comment on above: Order Comment: If no t done in ED No: Do not add to previous draw Performed By: #### 5 0103 #### [facility] [address] [place] [address], [facility] Lymphocytes/100 WBC (Bld) 21.0 % Normal 20.0-45.0 [facility] Comment on above: Order Comment: If no t done in ED No: Do not add to previous draw Performed By: #### 5 0103 #### [facility] [address] [place] [address], [facility] MCH (RBC) [Entitic mass] 28.9 pg Normal 27.0-33.0 [facility] Comment on above: Order Comment: If no t done in ED No: Do not add to previous draw Performed By: #### 5 0103 #### [facility] [address] [place] [address], [facility] MCHC (RBC) [Mass/Vol] 32.0 g/dL Normal 32.0-35.0 [facility] Comment on above: Order Comment: If no t done in ED No: Do not add to previous draw Performed By: #### 5 0103 #### [facility] [address] [place] [address], [facility] MCV (RBC) [Entitic vol] 90.4 fL Normal 82.0-98.0 [facility] Comment on above: Order Comment: If no t done in ED No: Do not add to previous draw Performed By: #### 5 0103 #### [facility] [address] [place] [address], [facility] Monocytes (Bld) [#/Vol] 1.4 10*3/uL High 0.1-1.0 [facility] Comment on above: Order Comment: If no t done in ED No: Do not add to previous draw Performed By: #### 5 0103 #### [facility] [address] [facility] [place] [address], [facility] MONOS 12.2 % High 5.0-12.0 [facility] Comment on above: Order Comment: If no t done in ED No: Do not add to previous draw Performed By: #### 5 0103 #### [facility] [address] [place] [address], [facility] Neutrophils/100 WBC (Bld) 62.5 % Normal 40.0-72.0 [facility] Comment on above: Order Comment: If no t done in ED No: Do not add to previous draw Performed By: #### 5 0103 #### [facility] [address] [place] [address], [facility] Nucleated RBC/100 WBC (Bld) [Ratio] 0 % Normal 0-0 [facility] Comment on above: Order Comment: If no t done in ED No: Do not add to previous draw Performed By: #### 5 0103 #### [facility] [address] [place] [address], [facility] PLAT CNT 321 10*3/uL Normal 150-400 [facility] Comment on above: Order Comment: If no t done in ED No: Do not add to previous draw Performed By: #### 5 0103 #### [facility] [address] [facility] [place] [address], [facility] RBC (Bld) [#/Vol] 5.95 10*6/uL High 4.20-5.70 [facility] Comment on above: Order Comment: If no t done in ED No: Do not add to previous draw Performed By: #### 5 0103 #### [facility] [address] [place] [address], [facility] WBC (Bld) [#/Vol] 11.32 10*3/uL High 4.00-10.60 [facility] Comment on above: Order Comment: If no t done in ED No: Do not add to previous draw Performed By: #### 5 0103 #### [facility] [address] [facility] [place] [address], [facility] COMP METABOLIC PANELon 03-14 Albumin [Mass/Vol] 4.3 g/dL Normal 3.5-5.7 [facility] Comment on above: Order Comment: << On admission If not done in ED>> No: Do not add to previous draw Performed By: #### 0 0121, 69494, 87966, 54625, 53687 #### [facility] [address] [place] [address], [facility] ALKALINE PHOSPH 59 IU/L Normal 34-104 [facility] Comment on above: Order Comment: << On admission If not done in ED>> No: Do not add to previous draw Performed By: #### 0 0121, 99377, 63323, 69989, 36546 #### [facility] [address] [place] [address], [facility] ALT [Catalytic activity/Vol] 21 U/L Normal 7-52 [facility] Comment on above: Order Comment: << On admission If not done in ED>> No: Do not add to previous draw Performed By: #### 0 0121, 08109, 98304, 77937, 67278 #### [facility] [address] [place] [address], [facility] AST [Catalytic activity/Vol] 26 U/L Normal 13-39 [facility] Comment on above: Order Comment: << On admission If not done in ED>> No: Do not add to previous draw Performed By: #### 0 0121, 96984, 49465, 24257, 64907 #### [facility] [address] [place] [address], [place] Bilirubin [Mass/Vol] 1.1 mg/dL High 0.3-1.0 [facility] Comment on above: Order Comment: << On admission If not done in ED>> No: Do not add to previous draw Performed By: #### 0 0121, 05647, 70278, 18956, 04559 #### [facility] [address] [place] [address], [place] Calcium [Mass/Vol] 10.5 mg/dL High 8.6-10.3 [facility] Comment on above: Order Comment: << On admission If not done in ED>> No: Do not add to previous draw Performed By: #### 0 0121, 70446, 95268, 39368, 35260 #### [facility] [address] [place] [address], [place] Chloride [Moles/Vol] 98 mmol/L Normal 98-107 [facility] Comment on above: Order Comment: << On admission If not done in ED>> No: Do not add to previous draw Performed By: #### 0 0121, 60121, 07862, 15940, 87214 #### [facility] [address] [place] [address], [facility] CO2 [Moles/Vol] 31 mmol/L Normal 21-31 [facility] Comment on above: Order Comment: << On admission If not done in ED>> No: Do not add to previous draw Performed By: #### 0 0121, 21406, 15919, 88249, 24875 #### [facility] [address] [place] [address], [facility] Creatinine [Mass/Vol] 1.36 mg/dL High 0.70-1.30 [facility] Comment on above: Order Comment: << On admission If not done in ED>> No: Do not add to previous draw Performed By: #### 0 0121, 96969, 97321, 69881, 12025 #### [facility] [address] [place] [address], [facility] GFR/1.73 sq M predicted among blacks MDRD (S/P/Bld) [Vol rate/Area] mL/min/{1.73_m2} Normal >60 [facility] Comment on above: Order Comment: << On admission If not done in ED>> No: Do not add to previous draw Performed By: #### 0 0121, 76855, 41773, 49729, 16190 #### [facility] [address] [place] [address], [facility] GFR/1.73 sq M predicted among non-blacks MDRD (S/P/Bld) [Vol rate/Area] 55 ml/min/1.73sq m Abnormal >60 [facility] Comment on above: Order Comment: << On admission If not done in ED>> No: Do not add to previous draw Performed By: #### 0 0121, 23049, 52162, 64617, 22093 #### [facility] [address] [place] [address], [place] Glucose [Mass/Vol] 81 mg/dL Normal 70-100 [facility] Comment on above: Order Comment: << On admission If not done in ED>> No: Do not add to previous draw Performed By: #### 0 0121, 80100, 08397, 02115, 97688 #### [facility] [address] [place] [address], [place] Potassium [Moles/Vol] 3.8 mmol/L Normal 3.5-5.1 [facility] Comment on above: Order Comment: << On admission If not done in ED>> No: Do not add to previous draw Performed By: #### 0 0121, 36303, 55199, 78036, 48820 #### [facility] [address] [place] [address], [place] Protein [Mass/Vol] 7.4 g/dL Normal 6.0-8.3 [facility] Comment on above: Order Comment: << On admission If not done in ED>> No: Do not add to previous draw Performed By: #### 0 0121, 14384, 51144, 44876, 53186 #### [facility] [address] [place] [address], [place] Sodium [Moles/Vol] 138 mmol/L Normal 136-145 [facility] Comment on above: Order Comment: << On admission If not done in ED>> No: Do not add to previous draw Performed By: #### 0 0121, 42074, 07838, 71883, 06623 #### [facility] [address] [place] [address], [place] Urea nitrogen [Mass/Vol] 26 mg/dL High 7-25 [facility] Comment on above: Order Comment: << On admission If not done in ED>> No: Do not add to previous draw Performed By: #### 0 0121, 44444, 92127, 50601, 54961 #### [facility] [address] [place] [address], [facility] FREE T4on 03-14-2019 Free T4 [Mass/Vol] 1.18 ng/dL Normal 0.71-1.85 [facility] Comment on above: Order Comment: If no t done in ED No: Do not add to previous draw Performed By: #### 0 0121, 67165, 53596, 67778, 40963 #### [facility] [address] [place] [address], [facility] HEMOGLOBIN A1Con 03-14-2019 HbA1c (Bld) [Mass fraction] 103 mg/dL Normal 70-126 [facility] Comment on above: Order Comment: If no t done in ED No: Do not add to previous draw Performed By: #### 8 5123, 08286 #### [facility] [address] [place] [address], [facility] HbA1c (Bld) [Mass fraction] 5.2 % Normal 4.0-6.0 [facility] Comment on above: Order Comment: If no t done in ED No: Do not add to previous draw Performed By: #### 8 5123, 50315 #### [facility] [address] History and Physicalon 03-14 History and Physical MR#: [id number] [facility] Pt. Name: Argelia Crain Admitted: 03/14/2019 Date of : 1965 Attending Physician: Dimitry Lyles M.D. Room #: 3AB [id number] Discharge Date: HISTORY AND PHYSICAL CHIEF COMPLAINT: Atrial fibrillation and bilateral lower extremity swelling. HISTORY OF PRESENT ILLNESS: Mr. Whitt is a 53-year-old male with the past medical history of depression and GERD, who was transferred from [facility] for atrial fibrillation and congestive heart failure. The patient states that he has been complaining of progressively worsening bilateral lower extremity swelling for the last four months. The patient states that he has never had bilateral lower extremity swelling like this in the past. The patient was [facility] and was sent to [facility]. At [facility], EKG showed atrial fibrillation with RVR. Chest x-ray showed bilateral pulmonary venous congestion. The patient was admitted for one day at [facility] and was started on metoprolol 75 mg twice a day and Eliquis. The patient was also diuresed with Lasix and put out around 2.8 L of urine. An echocardiogram was done at [facility], which showed a reduced ejection fraction, but [...] drug use. 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 FAMILY HISTORY: Father [...] metoprolol 75 mg b.i.d. at [facility]. His heart rate is currently in the 80s to 90s. Will start him on metoprolol 12.5 mg BID. The patient received a dose of Eliquis today this morning at [facility], will discontinue Eliquis and start him on heparin drip in the evening around 10 p.m. His TSH and T4 were normal at [facility]. If the patient does not convert back to normal sinus rhythm, the patient will have GERMAN/cardioversion on Saturday. 2. Acute systolic CHF exacerbation: An echocardiogram at [facility] showed reduced ejection fraction. The patient was diuresed with Lasix 40 mg IV twice a day at [place] and diuresed around 2.8 L. Will start [...] Dimitry Lyles M.D. Date Dict: 03/14/2019/12:17 P/Dimitry yLles M.D. Date Trans: 03/14/2019 01:33 P/mmo [id number] Normal [facility] MAGNESIUM BLOODon 03-14-2019 Magnesium [Mass/Vol] 2.4 mg/dL Normal 1.9-2.7 [facility] Comment on above: Order Comment: << ON ADMISSION If not done in ED>> No: Do not add to previous draw Performed By: #### 0 0121, 75027, 90318, 89471, 88602 #### [address] PORTABLE CHEST 1 VIEWon 02-28 PORTABLE CHEST 1 VIEW [facility] Department of Radiology [address] [place] [id number] ===== Patient Name: ARGELIA CRAIN : 1965 Sex: M Age: Race: NA Pt. Location: [id number] Patient Status: I Ordered Date: 03/14/2019 10:35:00 AM Completed Date: 03/14/2019 11:59 AM Requesting Provider: DIMITRY LYLES Attending Provider: PATRIA GALARZA Report Copy To: Signs & Symptoms: Shortness of Breath History: Patient history not available Comments: R/O Pulmonary Edema Exam: PORTABLE CHEST 1 VIEW ===== PORTABLE CHEST 1 VIEW 03/14/2019 11:59 AM [...] findings. Electronically signed by:Yenni Osuna. Transcribed by: [email or web address], User Resident: KAREEM LIAO Electronically Signed by: YENNI OSUNA @ 03/14/2019 04:53 PM I personally read this/these film(s) with this resident Normal [facility] Comment on above: Order Comment: R/O P ulmonary Edema TROPONIN-Ion 03-14-2019 Troponin I.cardiac [Mass/Vol] 0.00 ng/mL Normal 0.00-0.04 [facility] Comment on above: Order Comment: << On admission If not done in ED>> No: Do not add to previous draw Result Comment: REFE RENCE RANGES: 0.00 - 0.14 ng/ml NEGATIVE 0.15 - 0.25 ng/ml INDETERMINATE > 0.25 ng/ml INDICATIVE OF AN M.I. Performed By: #### 0 0121, 13116, 62256, 54991, 11772 #### [facility] [address] [facility] Troponin I.cardiac [Mass/Vol] 0.01 ng/mL Normal 0.00-0.04 [facility] Comment on above: Order Comment: No: D o not add to previous draw Result Comment: REFE RENCE RANGES: 0.00 - 0.04 ng/ml NORMAL 0.05 - 0.50 ng/ml INDETERMINATE > 0.50 ng/ml CONSISTENT WITH AN M.I. Performed By: #### 0 0121, 14321, 40476, 36613, 79816 #### [facility] [address] [place] [address], [facility] TSH3on 03-14-2019 TSH 3RD GENERATION 2.05 uIU/mL Normal 0.34-5.60 [facility] Comment on above: Order Comment: TSH3 with Reflex canceled. TSH3 ordered. Performed By: #### 0 0121, 17597, 60208, 14759, 88184 #### [facility] [address] CBC With Platelet No Differe ntialon 03-04-2018 Erythrocyte distribution width Auto Ratio (RBC) 13.9 % Normal 11.5-14.5 [facility] Erythrocytes (RBC) 5.34 10*6/uL Normal 4.70-6.10 [facility] Hematocrit (HCT) 49.8 % Normal 42.0-52.0 [facility] Hemoglobin mass conc (Bld) 16.4 g/dL Normal 14.0-18.0 [facility] MCH 30.8 pg Normal 27.0-31.3 [facility] MCHC mass conc (RBC) 33.0 % Normal 33.0-37.0 [facility] MCV 93.3 fL Normal 80.0-100.0 [facility] Platelets 281 10*3/uL Normal 130-400 [facility] WBC (Leukocytes) 9.3 10*3/uL Normal 4.8-10.8 [facility] Comprehensive Metabolic Pane gian 03-04-2018 Alanine aminotransferase (ALT) 20 U/L Normal 0-41 [facility] Albumin 4.6 g/dL Normal 3.9-4.9 [facility] Alkaline phosphatase (ALP) 56 U/L Normal 35-104 [facility] Anion gap 18 mmol/L Critically high 7-13 [facility] Aspartate aminotransferase (AST) 18 U/L Normal 0-40 [facility] Bilirubin (total) 0.7 mg/dL Normal 0.0-1.2 [facility] Calcium 9.4 mg/dL Normal 8.6-10.2 [facility] Chloride 103 mmol/L Normal 98-107 [facility] CO2 20 mmol/L Low 22-29 [facility] Creatinine 0.78 mg/dL Normal 0.70-1.20 [facility] eGFR (black) mL/min/{1.73_m2} Normal >60 [facility] Comment on above: Result Comment: >60 mL/min/1.73m2 EGFR, calc. for ages 18 and older using theMDRD formula (not corrected for weight), is valid for stablerenal function. eGFR (MDRD) mL/min/{1.73_m2} Normal >60 [facility] Comment on above: Result Comment: >60 mL/min/1.73m2 EGFR, calc. for ages 18 and older using theMDRD formula (not corrected for weight), is valid for stablerenal function. Globulin 2.7 g/dL Normal 2.3-3.5 [facility] Glucose mass conc 91 mg/dL Normal 74-109 [facility] Potassium molar conc 4.1 mmol/L Normal 3.5-5.1 [facility] Protein 7.3 g/dL Normal 6.4-8.1 [facility] Sodium 141 mmol/L Normal 132-144 [facility] Urea nitrogen 15 mg/dL Normal 6-20 [facility] Hemoglobin A1con 03-04-2018 Hemoglobin A1c/Hemoglobin.total mass fraction (Bld) 5.5 % Normal 4.8-5.9 [facility] Lipid Panelon 03-04-2018 Cholesterol 167 mg/dL Normal 0-199 [facility] Comment on above: Result Comment: ATP III Cholesterol classification is Desirable. HDL Cholesterol 47 mg/dL Normal 40-59 [facility] Comment on above: Result Comment: ATP III HDL Cholesterol Classification is Desirable.Expected Values:Males: >55 = No Risk 35-55 = Moderate Risk <35 = High RiskFemales: >65 = No Risk 45-65 = Moderate Risk <45 = High RiskNCEP Guidelines: Third Report January 2001>59 = negative risk factor for CHD<40 = major risk factor for CHD LDL Cholesterol 99 mg/dL Normal 0-129 [facility] Comment on above: Result Comment: ATP III LDL Classification is Optimal. Triglyceride 105 mg/dL Normal 0-200 [facility] Comment on above: Result Comment: ATP III Triglycerides Classification is Normal. Prostate Specific Ag Screeno n 03-04-2018 Prostate Specific Ag Screen 2.25 ng/mL Normal 0.00-3.89 [facility] Comment on above: Result Comment: When the Total PSA is between 3.00 and 10.00 ng/mL, considerrequesting a Free PSA to aid in diagnosis. TSH w/out Reflexon 8 Thyroid stimulating hormone (TSH) 2.550 uIU/mL Normal 0.270-4.20 [facility] Thyroxine Freeon 03-04-2018 Thyroxine Free 1.54 ng/dL Normal 0.93-1.70 [facility] Vital Signs Date Time Vital Sign Value Performing Clinician Facility 11-09-2024 16:35-0500 Body height 190.5 cm Everette Buddy DO Work Phone: [facility] 11-09-2024 16:35-0500 Body mass index (BMI) [Ratio] 34.37 kg/m2 Everette Buddy DO Work Phone: [facility] 11-09-2024 16:35-0500 Body weight 124.74 kg Everette Buddy DO Work Phone: [facility] 11-09-2024 16:35-0500 Diastolic blood pressure 80 mm[Hg] Everette Buddy DO Work Phone: [facility] 11-09-2024 16:35-0500 Heart rate 84 /min Everette Buddy DO Work Phone: [facility] 11-09-2024 16:35-0500 SaO2% (BldA) [Mass fraction] 95 % Everette Buddy DO Work Phone: [facility] 11-09-2024 16:35-0500 Systolic blood pressure 126 mm[Hg] Everette Buddy DO Work Phone: [facility] 03-21-2019 15:41-0400 Respiratory rate 16 /min TITUS VILLEGAS [facility] Comment on above: Performed By: #### 33736, 85652, 72904, 81709, 97114 #### [facility] [place] [address], [facility] 03-21-2019 06:18-0400 Respiratory rate 16 /min TITUS HOY [facility] Comment on above: Performed By: #### 08871, 84951, 88066, 02178, 23769 #### [facility] [address] [place] [address], [facility] 03-20-2019 15:18-0400 Respiratory rate 16 /min TITUS HOY [facility] Comment on above: Performed By: #### 03886, 46494, 19995, 80843, 83009 #### [facility] [address] [place] [address], [facility] 03-20-2019 06:10-0400 Respiratory rate 16 /min TITUS HOY [facility] Comment on above: Performed By: #### 59994, 99446, 25111, 03007, 31706 #### [facility] [address] [place] [address], [facility] 03-20-2019 01:22-0400 Respiratory rate 16 /min TITUS HOY [facility] Comment on above: Performed By: #### 23138, 28385, 66434, 51414, 46698 #### [facility] [address] [place] [address], [facility] 03-19-2019 22:02-0400 Respiratory rate 16 /min TITUS HOY [facility] Comment on above: Performed By: #### [id number] #### [facility] [address] [place] [address], [facility] 03-19-2019 20:06-0400 Respiratory rate 16 /min TITUS HOY [facility] Comment on above: Performed By: #### 81632, 98218 ####[facility] [place] [address], [facility] 03-19-2019 18:48-0400 Respiratory rate 16 /min TITUS HOY [facility] Comment on above: Order Comment: R/O Pulmonary Edema Performed By: #### 8 2001, 66969 ####[place] [address] [place] [address], [facility] Encounters Encounter Date Encounter Type Care Provider Facility Start: 01-04-2025 End: 01-04-2025 ambulatory [facility] Start: 11-09-2024 End: 11-09-2024 Office outpatient new [...] Start: 11-09-2024 End: 11-09-2024 Bamboo flowsheet Everette Buddy DO Work Phone: [facility] Start: 06-26-2024 End: 06-26-2024 ambulatory [facility] Start: 05-05-2024 Evaluation and management of inpatient [facility] Start: 05-05-2024 End: 05-06-2024 Evaluation and management of inpatient [facility] Start: 03-26-2024 End: 03-26-2024 ambulatory [facility] Start: 02-28-2024 End: 02-28-2024 ambulatory [facility] Start: 02-05-2023 End: 02-06-[address] VIET [...] DR TITUS VILLEGAS . [facility] Start: 04-05-2022 End: 04-06-[address] TITUS VILLEGAS . Facility:[facility] Start: 04-05-2022 End: 04-06-2022 Encounter for general adult medical examination without abnormal findings DR TITUS VILLEGAS . Facility:[facility] Start: 03-08-2022 End: 03-09-[address] MELIDA CUELLAR Facility:[facility] Start: 05-12-2019 End: 05-13-2019 Patient encounter procedure ILAN DANIELSON Facility:[facility] Start: 03-14-2019 End: 03-27-2019 Evaluation and management of inpatient TITUS VILLEGAS Facility:[facility] Procedures Date Procedure Procedure Detail Performing Clinician Start: 04-05-[address] MELIDA CUELLAR Comment on above: Performed By: #### P [facility] ####[place] [address] [place], [place] [address]XqDr. Leonie Beckham Start: 03-19-2019 DESTRUCTION OF CONDU [...] OF R IGHT AND LEFT HEART, TRANSESOPHAGEAL TIMOB MASROOR Start: 03-18-2019 Antibody screen TITUS VILLEGAS Comment on above: Performed By: #### 0 0121, 82746, 80030, 95617, 11420 #### [place] [address], [facility] Start: 03-16-2019 MEASURE CARDIAC SAMP L \T\ PRESSURE, BILATERAL, PERC KRYS DAY Start: 03-16-2019 FLUOROSCOPY OF LEFT HEART USING OTHER CONTRAST KRYS DAY Start: 03-16-2019 FLUOROSCOPY OF MULTI PLE CORONARY ARTERIES USING OTH CONTRAST [facility] DAY Start: 03-16-2019 Judaism of Cardi ac Rhythm, Single ILAN DANIELSON Plan of Treatment Date Care Activity Detail Author Start: 11-09-2024 End: 11-09-2024 Patient encounter procedure 11/09/2024 4:30 PM EST Office Visit [facility] [address] [place] [address] Everette Goodwin DO [address] [place] [address] Arrived [facility] Comment on above: Arrived Start: 05-31-2024 Influenza vaccination Influenza Vacc ine (#1) [facility] Start: 1965 Screening for malign ant neoplasm of colon [facility] Immunizations Immunization Date Immunization Notes Care Provider Dwight carlsonjunaid 10-07-2021 influenza virus vacc ine, unspecified formulation Everette Goodwin DO Work Phone: [facility] Payers Date Payer Category Payer [facility] BCBS [id number] 1965 Unknown [id number] .[id number]. 2.647 1965 Unknown [id number] 2.0.1.380693.3.579. 2.647 1964 Unknown [id number] .1.083251.3.579. 2.59 1965 Unknown [id number] ..1.096929.3.579. 2.593 1965 Unknown [id number] .1.704984.3.579. 2.593 1965 Unknown [id number] .0.1.507974.3.579. 2.593 1965 Unknown [id number] 2.0.1.443503.3.579. 2.593 1964 Unknown [id number] 2..1.854892.3.579. 2.593 1964 Unknown [id number] 2.0.1.444643.3.579. 2.593 1965 Unknown [id number] 2.16.840.1.961690.3.579. 2.593 1964 Unknown [id number] 2.16.840.1.065853.3.579. 2.593 1965 Unknown [id number] 2.593 1965 Unknown [id number] [id number]. 2.593 1964 Unknown [id number] [id number]. 2.593 1964 Unknown [id number] 2.16.840.1.482242.3.579. 2.593 1964 Unknown [id number] 2.16.840.1.484081.3.579. 2.593 1964 Unknown [id number] 2.16.840.1.605973.3.579. 2.593 1964 Unknown [id number] 2.16.840.1.477769.3.579. 2.593 1965 Unknown [id number] [id number]. 2.1259 1960 Self-pay 1960 Unknown [id number] Social History Date Type Detail Facility Tobacco smoking stat [facility] Tobacco smoking consumption unknown [facility] Start: 1965 Sex assigned at Not on file [facility] Start: 11-09-2024 Gender identity Not on file [facility] Start: 11-09-2024 Tobacco smoking stat [facility] Never smoked tobacco [facility] Start: 11-09-2024 Tobacco use and exposure Smokeless t obacco non-user [facility] Start: 11-09-2024 History of Social function [facility] Clinical Notes 11-29-2020 to 01-04-2025 Everette Goodwin DO - 11/09/2024 4:30 PM EST Note Date & Type Note Facility 01-04-2025 Note [place] [facility] Subjective Tracie Crain is a 59 y.o. year old male patient being seen for 6 month follow up with Echo. No cardiac complaints at this time. Patient states he did Lyphemadema treatment feet are still sexton. Patient states he is still exhausted since this whole heart thing. Patient Active Problem List Diagnosis Right-sided heart [...] When compared with ECG of 21-MAR-2019 20:42, VA interval has decreased, Vent. rate has increased [...] performed at 200 J, the patient was conve (more content not included)... [facility] 11-09-2024 History of Present illness Narrative Images [...] 4.5 years old. He got it from [facility] which is now [facility]. NO other new [...] was counseled on the risks of stroke, AL, and sudden with ZULEIMA, along with the [...] a new machine documented in this encounter [facility] 06-26-2024 [place] [facility] Subjective Tracie Crain is a [...] When compared with ECG of 21-MAR-2019 20:42, VA interval has decreased, Vent. rate has increased [...] pressures consistent with (more content not included)... [facility] 05-06-2024 Note 05/06/24 1003 Admission Assessment [...] Status Interested Does the patient have a trimming caser assigned to them through their insurance? No [...] link and activate MyChart? MyChart already active [facility] 05-05-2024 Note Interventional cardi ology update Patient's remains with a 4 Austrian arterial sheath in right SPOUT LINER HELPER. ACT has been trending down last checked results with at 154. Patient evaluated bedside and arterial sheath removed with manual pressure for hemostasis. No hematoma formation. Patient tolerated well. 1 mg of Versed and 25 mcg of fentanyl administered IV. Recommend strict bedrest until 3 AM. Isaura Lee MD PGY-7 Interventional Pecan Cleaner [facility] 05-05-2024 Note Patient: Tracie kaminski Procedure Information Date/Time: 05/05/24 1330 Procedures: Atrial septal defect closure - PC APPROVED 05/05 Right heart cath Location: [facility] / [facility] (Cath) Providers: Viet Salas MD [...] consented to blood products. Additional Equipment Requests [facility] 03-26-2024 [place] [facility] Subjective Tracie Crain is a [...] When compared with ECG of 21-MAR-2019 20:42, VA interval has decreased, Vent. rate has increased [...] in follow up. (more content not included)... [facility] 02-28-2024 Note Patient: Tracie kaminski Procedure Information Date/Time: 02/28/24 1300 Procedure: Right heart cath Location: [facility] / [facility] (Cath) Providers: Viet Salas MD Clinical information reviewed: Allergies Meds Physical Exam Airway Mallampati: II TM distance: >3 FB Neck ROM: full Cardiovascular Rhythm: regular Rate: normal Dental Pulmonary Abdominal Anesthesia Plan ASA 3 other (Conscious sedation.) Anesthetic plan and risks discussed with patient. Use of blood products discussed with patient who consented to blood products. Additional Equipment Requests [facility] 02-28-2024 Note Brief procedure note : [...] Full report to follow Dr. Brook Arenas [facility] 02-28-2024 Note Patient: Tracie kaminski Procedure Information Date/Time: 02/28/24 1300 Procedure: GERMAN Location: [facility] / [facility] (Cath) Providers: Brook Arenas Clinical information reviewed: Allergies Meds Physical Exam Airway Mallampati: II Neck ROM: full Cardiovascular Rhythm: regular Rate: normal Dental Pulmonary Breath sounds clear to auscultation Abdominal - normal exam Anesthesia Plan ASA 3 CSE Anesthetic plan and risks discussed with patient. [facility] 11-29-2020 Note Chief Complaint referral for [...] vaccine, inactivated - Not Given Patient Refuses [facility] Comment on above: Result Comment: Elec [...] Found Hospital Course Note MR#: [id number] [facility] Pt. Name: Tracie Crain Admitted: 03/14/2019 Discharged: 03/27/2019 Date of : 1965 Physician: Timbo Black MD DISCHARGE SUMMARY HISTORY: This is a 53-year-old male who was transferred from [facility] for further management of new-onset atrial fibrillation and systolic heart failure. Over the past 2 weeks, he had been having symptoms of lower extremity swelling. He denied chest pain and was very short of breath according to the . At [facility] [place] [facility], he was noted to have severe pulmonary venous congestion and was transferred to [facility] after echocardiogram revealed reduced left ventricular [...] section and content) DATE CREATED AUTHOR 03/18/2018 [facility] DATE CREATED AUTHOR AUTHOR'S ORGANIZ ATION 03/02/2020 [facility] DATE CREATED AUTHOR AUTHOR'S ORGANIZ ATION 02/12/2021 [facility] DATE CREATED AUTHOR AUTHOR'S ORGANIZ ATION 02/10/2023 [facility] DATE CREATED AUTHOR AUTHOR'S ORGANIZ ATION 11/11/2024 [facility] DATE CREATED AUTHOR AUTHOR'S ORGANIZ ATION 02/04/2025 [facility] Care Teams (unrecognized sec tion and content) Supervisory Civil Engineer Relationship Specialty Start Date End Date Titus Villegas MD [address] [place] [id number] PCP - General Family Medicine 11/09/24 Supervisory Civil Engineer Relationship Specialty Start Date End Date Titus Villegas MD [address] [place] [address] PCP - General Family Medicine 11/09/24 Reason [...] BE BASED ON THE PRIMARY CLINICAL RECORDS. [facility]. provides no warranty or guarantee of the accuracy or completeness of information in this document.
[2025-02-16 16:07] LABS: Anion Gap 12.8; BUN Creatinine Ratio 20.7; Calcium 9.3 mg/dL (8.5-10.1); Chloride 102 mmol/L (98-107); Estimated GFR (African America >60 (>=60 mL/min/1.73m^2); Estimated GFR (Non-African Ame >60 (>=60 mL/min/1.73m^2); Glucose 109 mg/dL (74-106); Potassium 3.8 mmol/L (3.5-5.1); Sodium 143 mmol/L (136-145)
== END 2025-02-16 15:13 | disposition home or self-care (01) ==
PROVIDERS: PCP Family Medicine; Visit Provider Internal Medicine Interventional Cardiology
DX: I50.810 Right heart failure, unspecified (principal)
CPT/HCPCS: 36415; 80048

== ENCOUNTER 2025-04-15 06:54 | Outpatient (OUT) | payer BC, SELFPAY ==
--- OUTSIDE RECORDS SUMMARY | 2024-10-12 09:00 | XMS_ITS ---
Author Organization [facility] in [place] Address [address] [place] [address] Care Team Providers Care Rn Neurology Name Role Phone Jl Vela Primary Care Provider Results Component Value Reference Range Notes LIPID PROFILE Reviewed date:10/15/2024 07:50:39 PM Interpretation: Performing Lab: Notes/Report: [facility] , Triglycerides 75 <=150 mg/dL Cholesterol 151 <=200 mg/dL HDL Cholesterol 47 40-60 mg/dL > or =60 mg/dl - LOW CARDIOVASCULAR RISK <40 mg/dl - HIGH CARDIOVASCULAR RISK LDL Cholesterol Calculated 89.0 <100 mg/dl OPTIMAL 100-129 mg/dl NEAR OR ABOVE OPTIMAL 130-159 mg/dl BORDERLINE HIGH 160-189 mg/dl HIGH >190 mg/dl VERY HIGH VLDL CHOLESTEROL 15.0 Chol HDL Ratio 3.2 3.3 - 4.4 LOW RISK 4.4 - 7.1 AVERAGE RISK 7.1 - 11.0 MODERATE RISK >11.0 HIGH RISK Performing Lab: see note ML - [facility] LB GLYCOHEMOGLOBIN A1C Reviewed date:10/15/2024 07:50:39 PM Interpretation: Performing Lab: Notes/Report: [facility] , Glycohemoglobin A1C 5.8 4.5-6.2 % ADA RECOMMENDED LIMIT 4.0 - 6.0 ADA THERAPEUTIC TARGET < 7.0 ACTION SUGGESTED > 7.0 Estimated Average Glucose 120 Performing Lab: see note ML - [facility] LB CBC AUTO DIFF Reviewed date:10/15/2024 01:55:09 PM Interpretation: Performing Lab: Notes/Report: [facility] , White Blood Count 8.9 4.0-11.0 10 3/uL Red Blood Count 5.09 4.70-6.10 10 6/uL Hemoglobin 14.5 14.0-18.0 g/dL Hematocrit 46.3 42.0-54.0 % Mean Corpuscular Volume 91.0 80.0-94.0 fL Mean Corpuscular Hemoglobin 28.5 25.9-34.0 pg Mean Corpuscular HGB Conc 31.3 29.9-35.2 g/dL Red Cell Distribution Width 14.2 11.0-15.0 % Platelet Count 236 150-450 10 3/uL Mean Platelet Volume 9.2 9.5-13.5 fL Neutrophils Percent Auto 60.3 43.0-75.0 % Lymphocytes Percent Auto 24.5 20.5-60.0 % Monocytes Percent Auto 10.3 1.7-12.0 % Eosinophils Percent Auto 3.2 0.9-7.0 % Basophils Percent Auto 1.1 0.2-2.0 % Immature Granulocytes Pct Auto 0.6 0.0-0.5 % Neutrophils Absolute Auto 5.4 1.4-6.5 10 3/uL Lymphocytes Absolute Auto 2.2 1.2-3.8 10 3/uL Monocytes Absolute Auto 0.9 0.3-0.8 10 3/uL Eosinophils Absolute Auto 0.3 0.0-0.7 10 3/uL Basophils Absolute Auto 0.1 0.0-0.1 10 3/uL Immature Granulocytes Abs Auto 0.05 0.00-0.03 10 3/uL Performing Lab: see note ML - [facility] LB REASON FOR VISIT due for labs Encounters Encounter Location Date Provider Diagnosis [facility] [address] [place] [address] 10/12/2024 Jl Vela Wellness examination Z01.89 Assessments Encounter Date Diagnosis (ICD Code) Assessment Notes Treatment Notes Treatment Clinical Notes Section Notes 10/12/2024 Wellness examination (ICD-10 - Z01.89) Plan Of Treatment Pending Test Test Name Order Date FECAL OCCULT BLOOD 10/12/2024 CMP - Comprehensive Metabolic Panel 09/30 THYROID PANEL (T4/TSH/FREE T3) PSA, SCREENING 10/12/2024 Progress Notes * Lul KOCHDOB: [birth year] (59 yo M)Acc No.[id number]:10/12/2024 Patient: Lul BLUE :1965 A ge:59 Y S ex:Male Address:[address] [place] [address] , [place], [address] Subjective: * Chief Complaints: * D ue for labs * Medical History: * Surgical History: * Hospitalization/Major Diagno stic Procedure: * Medications: Objective: * Vitals: * Physical Examination: Assessment: * Assessment: 1. [facility] examination - Z01.89 (Primary) Plan: * Treatment: * Procedure Codes: * true * Date: Generated for Roseline coker/Eryn/Shantellitting on: 0 04/15/2025 06:56 AM EDT
--- OUTSIDE RECORDS SUMMARY | 2024-10-15 15:45 | XMS_ITS ---
Author Organization [facility] in [place] Address [address] [place] [address] Care Team Providers Care [employer] Skilled Maintenance Supervisor Name Role Phone Jl Vela Primary Care Provider [phone] REASON FOR VISIT review labs- LMTCB Medications Medication SIG (Take, Route, Frequency, Duration) Notes Start Date End Date Status Levothyroxine Sodium 75 MCG TAKE 1 TABLE T BY MOUTH IN THE MORNING ON AN EMPTY STOMACH for 30 days Active Encounters Encounter Location Date Provider Diagnosis [address] [address] 10/15/2024 Jl Vela Plan Of Treatment Medication Medication Name Sig Start Date Stop Date Notes Levothyroxine Sodium 75 MCG TAKE 1 TABLE T BY MOUTH IN THE MORNING ON AN EMPTY STOMACH for 30 days Progress Notes * Lul KOCHDOB: [birth year] (59 yo M)Acc No.[id number]:10/15/2024 Patient: Monique NORIEGA Lul Wilcox :1965 A ge:59 Y S ex:Male [address] [place], [address] * Refills Refill Levothyroxine Sodium Tablet, 75 MCG, 30 Tablet, TAKE 1 TABLET BY MOUTH IN THE MORNING ON AN EMPTY STOMACH, 30 days, Refills=11 * true * Date: Generated for Printi ng/Faxing/eTransmitting on: 0 04/15/2025 06:56 AM EDT
--- OUTSIDE RECORDS SUMMARY | 2024-11-20 07:00 | XMS_ITS ---
Author Organization [facility] in [place] Address [address] [place] [address] Care Team Providers Care Farm Specialist Name Role Phone Jl Vela Primary Care Provider [phone] REASON FOR VISIT refill Medications Medication SIG (Take, Route, Frequency, Duration) Notes Start Date End Date Status Liothyronine Sodium 5 mcg TAKE 1 TABLET BY MOUTH ONCE DAILY ON AN EMPTY STOMACH for 30 days Active Levothyroxine Sodium 75 MCG TAKE 1 TABLE T BY MOUTH IN THE MORNING ON AN EMPTY STOMACH for 30 days Active Encounters Encounter Location Date Provider Diagnosis [address] [address] 11/20/2024 Jl Vela Plan Of Treatment Medication Medication Name Sig Start Date Stop Date Notes Liothyronine Sodium 5 mcg TAKE 1 TABLET BY MOUTH ONCE DAILY ON AN EMPTY STOMACH for 30 days Levothyroxine Sodium 75 MCG TAKE 1 TABLE T BY MOUTH IN THE MORNING ON AN EMPTY STOMACH for 30 days Progress Notes * Lul KOCHDOB: [birth year] (59 yo M)Acc No.[id number]:11/20/2024 Patient: Lul BLUE :1965 A ge:59 Y S ex:Male Address:[address] [place], [address] * Refills Refill Levothyroxine Sodium Tablet, 75 MCG, 30 Tablet, TAKE 1 TABLET BY MOUTH IN THE MORNING ON AN EMPTY STOMACH, 30 days, Refills=11 Refill Liothyronine Sodium Tablet, 5 mcg, 30 Tablet, TAKE 1 TABLET BY MOUTH ONCE DAILY ON AN EMPTY STOMACH, 30 days, Refills=11 * true * Date: Generated for Roseline coker/Eryn/Stacie on: 0 04/15/2025 06:56 AM EDT
--- OUTSIDE RECORDS SUMMARY | 2025-04-15 06:56 | XMS_ITS | Clinical Summary ---
Author Organization [employer] Address [id number] [address] [place] [address] Care Team Providers Care Wireless Communications Engineer Name Role Phone Raymundo Vela MD Primary Care Provider [phone] Allergies No known active allergies Medications amiodarone (PACERONE) 200 mg tablet Take 200 mg by mouth 2 (two) times a day. Active aspirin 325 mg tablet Take 325 mg by mouth daily. Active furosemide (LASIX) 40 mg tablet Take 40 mg by mouth daily. Active metoprolol succinate XL (TOPROL-XL) 50 mg 24 hr tablet Take 50 mg by mouth daily. Active sertraline (ZOLOFT) 50 mg tablet Take 50 mg by mouth daily. Active oxyCODONE-acetam inophen (PERCOCET) 5-325 mg per tablet Take 2 tablets by mouth every 4 (four) hours as needed for pain. Active docusate sodium (COLACE) 100 mg capsule Take 100 mg by mouth daily. Active amoxicillin-pot clavulanate (AUGMENTIN) 875-125 mg per tablet Take 1 tablet by mouth 3 (three) times a day. Active ferrous sulfate 325 mg (65 mg iron) capsule, extended release Take 1 tablet by mouth 2 (two) times a day. Active levothyroxine (SYNTHROID, LEVOTHROID) 50 MCG tablet Take 50 mcg by mouth daily. Active Social History Tobacco Use Types Packs/Day Years Used Date Smoking Tobacco: Never Assessed Childcare Answer Date Recorded Childcare Unknown 03/27/2019 Employment Answer Date Recorded Employment Unknown 03/27/2019 Purpose - Life Answer Date Recorded Purpose and direction in life Unknown Sex and Gender Information Value Date Recorded Sex Assigned at Not on file Legal Sex Male 1:53 PM EDT Gender Identity Not on file Sexual Orientation Not on file Last Filed Vital Signs Vital Sign Reading Time Taken Comments Blood Pressure 105/60 04/23/2019 9:51 AM EDT Pulse 115 04/23/2019 9:51 AM EDT Temperature 36.8 C (98.3 F) 04/23/2019 9:51 AM EDT Respiratory Rate 16 04/23/2019 9:51 AM EDT Oxygen Saturation 95% 04/23/2019 9:51 AM EDT Inhaled Oxygen Concentration - - Weight 123.2 kg (271 lb 8 oz) 04/14/2019 9:39 AM EDT Height 190.5 cm (6' 3 ) 03/28/2019 12:35 PM EDT Body Mass Index 33.94 03/28/2019 12:35 PM EDT Plan of Treatment Health Maintenance Due Date Last Done Comments Depression Screening 1976 Tobacco Screening 1976 Adult BMI Screening 1982 DTaP,Tdap and Td Vaccines (1 - Tdap) 1983 Zoster (Shingles) Vaccine (1 of 2) 2014 Influenza Vaccine 05/31/2025 Medical Devices Not on file Insurance Care Teams Wireless Communications Engineer Relationship Specialty Start Date End Date Raymundo Vela MD PCP - General Family Medicine 03/27/19
--- OUTSIDE RECORDS SUMMARY | 2025-04-15 06:56 | XMS_ITS | Encounter Summary ---
Author Organization [facility] 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 Patient declined 05/06/2024 Humiliation, Afraid, Rape, and Kick questionnair e Answer Date Recorded Within the last year, have y ou been afraid of your partner or ex-partner? Patient declined 05/06/2024 Emotionally Abused Not on file 05/06/2024 Physically Abused Not on file 05/06/2024 Sexually Abused Not on file 05/06/2024 Overall Financial Resource Strain (CARDIA) Answe r Date Recorded How hard is it for you to pa y for the very basics like food, housing, medical care, and heating? Patient declined 05/06/2024 Transportation Answer Date Recorded In the past 12 months, has l ack of transportation kept you from medical appointments or from getting medications? Patient declined 05/06/2024 Lack of Transportation (Non-Medical) Not on file 05/06/2024 Housing Stability Vital Sign Answer Hayder e Recorded Unable to Pay for Housing in the Last Year Not o n file 05/06/2024 Number of Places Lived in the Last Year Not on f ile 05/06/2024 In the last 12 months, was t here a time when you did not have a steady place to sleep or slept in a long term (including now)? Patient declined 05/06/2024 Hunger Vital Sign Answer Date Recorded Within the past 12 months, y ou worried that your food would run out before you got the money to buy more. Patient declined Ran Out of Food in the Last Year Not on file 05/06/2024 Sex and Gender Information Value Date Recorded Sex Assigned at Not on file Legal Sex Male 12:15 AM EDT Gender Identity Not on file Sexual Orientation Not on file documented as of this encounter Plan of Treatment Upcoming Encounters Date Type Department Care Team (Late st Contact Info) Description 04/26/2025 9:00 AM EDT Office Visit [facility] Heart [facility] [address] [place] [id number] John Salas MD [address] [facility] [place] [phone] documented as of this encounter Visit Diagnoses Diagnosis Heart failure with improved ejection fraction (HFimpEF) (CMS/HCC)- Primary Pulmonary hypertension (CMS/[facility]) Other chronic pulmonary heart diseases documented in this encounter Care Teams Belt Turner Relationship Specialty Start Date End Date Raymundo Vela MD [address] [facility] [address] [address] PCP - General 08/21/22 documented as of this encounter
--- OUTSIDE RECORDS SUMMARY | 2025-04-15 06:56 | XMS_ITS | Clinical Summary ---
Author Organization [facility] Address [address] [place] [address] Care Team Providers Care Cooler Tender Name Role Phone Raymundo Vela MD Primary Care Provider [phone] Allergies No known active allergies Medications aspirin 81 MG EC tablet Take 1 tablet by mouth Daily 06/26/2024 Active bumetanide (Bumex) 2 MG tablet Take by mouth 3 (three) times a day 1.5 tabs Active metoprolol succinate XL (Toprol-XL) 50 MG 24 hr tablet Take 1 tablet by mouth Daily 06/26/2024 Active potassium chloride CR (Klor-Con M20) 20 MEQ ER tablet Take 1 tablet by mouth in the morning and 1 tablet in the evening. Take with meals. Active spironolactone (Aldactone) 25 MG tablet Take 1 tablet by mouth in the morning and 1 tablet before bedtime. Active liothyronine (Cytomel) 5 MCG tablet Take 5 mcg by mouth Daily Take on an empty stomach. 10/14/2024 Active ferrous sulfate 325 (65 Fe) MG tablet Take 325 mg by mouth in the morning and 325 mg in the evening. Active levothyroxine (Synthroid, Levoxyl) 75 MCG tablet Take 75 mcg by mouth in the morning. Take before meals. Active sertraline (Zoloft) 50 MG tablet Take 1 tablet by mouth Daily Active Social History Tobacco Use Types Packs/Day Years Used Date Smoking Tobacco: Never Smokeless Tobacco: Never Sex and Gender Information Value Date Recorded Sex Assigned at Not on file Legal Sex Male 9:36 PM EDT Gender Identity Not on file Sexual Orientation Not on file Last Filed Vital Signs Vital Sign Reading Time Taken Comments Blood Pressure 126/80 11/09/2024 4:35 PM EST Pulse 84 11/09/2024 4:35 PM EST Temperature - - Respiratory Rate - - Oxygen Saturation 95% 11/09/2024 4:35 PM EST Inhaled Oxygen Concentration - - Weight 125 kg (275 lb) 11/09/2024 4:35 PM EST Height 190.5 cm (6' 3 ) 11/09/2024 4:35 PM EST Body Mass Index 34.37 11/09/2024 4:35 PM EST Plan of Treatment Health Maintenance Due Date Last Done Comments CT Colonography 1965 Colonoscopy 1965 Colorectal Cancer Screening 1965 FIT-DNA 1965 FIT 1965 FOBT 1965 Sigmoidoscopy 1965 Influenza Vaccine (#1) 2025 10/07/2021, 2016, 07/04/[address] [place] [id number] [facility] Care Teams Cooler Tender Relationship Specialty Start Date End Date Raymundo Vela MD PCP - General Family Medicine 11/09/24
--- NOTE | 2025-04-15 06:57 | CA_ITS ---
Patient Name: TRACIE KOCH MR#: [id number] : 1965 Exam Date: 04/15/2025 Ordering Doctor: DR VIET LUEVANO M.D. 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 DESCRIPTION: COMPLETE ECHOCARDIOGRAM Real-time transthoracic echocardiography with 2D, M-mode, spectral and color flow Doppler performed. QUALITY: Technical quality was good. LEFT VENTRICLE: Normal chamber size. Mild concentric left ventricular hypertrophy. LV EF: Global left systolic function is normal; visually estimated ejection fraction is 55%. D-shaped septum consistent with right ventricular pressure and/or volume overload. DIASTOLIC: Unable to assess diastolic function. ATRIAL SEPTUM: Visually appears intact. LEFT ATRIUM: Moderate dilatation. RIGHT ATRIUM: Severe dilatation. Interatrial septum bows from the right to the left. RIGHT VENTRICLE: Severe dilatation. Decreased right ventricular systolic function. TRICUSPID VALVE: Normal mobility and thickness. Moderate to severe regurgitation. Doppler studies reveal severely (>60) elevated right sided pressures. RVSP 75 mmHg MITRAL VALVE: Mild mitral regurgitation. Annuloplasty ring is seen in the mitral position with elevated Doppler flows. The posterior mitral leaflet appears restricted in motion. Mean 8.1 mmHg, which is increased from 7.6 mmHg from echo done on 12/25/24. AORTIC VALVE: Normal trileaflet appearance. No visible sclerosis. Normal leaflet mobility. No evidence of aortic valve stenosis. No aortic regurgitation. AORTIC ROOT: Normal diameter and appearance. PULMONIC VALVE: Normal thickness and mobility. No stenosis. No regurgitation. PERICARDIUM: No evidence of pericardial effusion. IVC: IVC is dilated (2.8 cm), does not collapse. CONCLUSION: 1. Global left systolic function is normal; visually estimated ejection fraction is 55% 2. D-shaped septum consistent with right ventricular pressure and/or volume overload 3. Mild left ventricular hypertrophy 4. The right ventricle is severely dilated with reduced systolic function 5. Biatrial dilation 6. Moderate to severe tricuspid regurgitation 7. Severely elevated right-sided pressures; RVSP 75 mmHg 8. Mitral annuloplasty ring seen with elevated Doppler flows; the posterior leaflet of the mitral valve appears restricted in motion 9. Mild mitral regurgitation Adult Echocardiography Procedure Report Left Ventricle LVEDD (3.7 - 5.6 cm): 5.01 cm LVESD (2.2 - 4.0 cm): 3.51 cm LVIVS thickness (0.6 - 1.2 cm): 1.00 cm LVPW thickness (0.5 - 1.0 cm): 1.28 cm LVOT Max Gradient: 3.78 mm[Hg] LVOT Area (cm2): 0.97 m/s Peak Velocity (LVOT): 0.97 m/s Mean Velocity (LVOT): 0.67 m/s LVOT Diameter 2.27 cm Left Atrium LA Volume Index (2D A2C): 45.57 ml/m2 Left Atrium Systolic Dimension: 6.03 cm Mitral Valve MV E to A Ratio: 0.57 Mitral Valve A-Wave Peak Velocity: 1.43 m/s Mitral Valve E-Wave Peak Velocity: 0.82 m/s Right Ventricle Aorta AO Root Diam: 3.55 cm Aortic Valve AoV Area (Peak Kane): 3.66 cm2, 3.66 cm2 AoV Area (VTI): 4.05 cm2, 4.05 cm2 Peak Velocity(Antegrade Flow): 1.08 m/s Peak Gradient(Antegrade Flow): 4.64 mm[Hg] Mean Velocity(Antegrade Flow): 0.78 m/s Mean Gradient(Antegrade Flow): 2.70 mm[Hg] Velocity Time Integral: 22.14 cm Tricuspid Valve Peak Velocity (Regurgitant Flow): 3.16 m/s, 3.56 m/s, 3.88 m/s Pulmonic Valve Peak Gradient: 3.84 mm[Hg], 4.13 mm[Hg] Right Atrium Right Atrium Systolic Pressure: 149.57 ml, 149.57 ml Dictated by: Piotr Jenkins M.D. on 04/15/2025 at 11:23 Approved by: Piotr Jenkins M.D. on 04/15/2025 at 11:31
--- OUTSIDE RECORDS SUMMARY | 2025-04-15 06:57 | XMS_ITS | CCD ---
Author Organization [facility] Care Team Providers Care Clinical Data Management Director Name Role Phone TITUS VILLEGAS Referring Unavailable SELF, REFERRED Primary Care Unavailable MASPATO, TIMBO Attending Unavailable JIAN SYED Admitting Unavailable HI Procedure Practitioner Unavailab KRYS De La Torre Surgeon Unavailable HI Procedure Practitioner Unavailab le ILAN CABA Surgeon Unavailable HI Procedure Practitioner Unavailab rishabh BLACK, TIMBO Surgeon Unavailable HI Procedure Practitioner Unavailab MAY De La Rosa [...] DR MELIDA Owen Admitting Unavailable Christosy Titus ADKNIS Primary Care Provider [phone] EVERETTE GOODWIN Attending Unavailable MOUKARBELVIET Admitting Unavailable [...] hydrochlorothiazide and have repeat blood work Normal [facility] Visiton 01-04-2025 Follow-up visit [id number] Adeel Crain 1965 M [facility] Provider Department Center 01/04/2025 VIET MARIA Family History Problem Relation Age of Onset Atrial fibrillation Mother Alzheimer's disease Mother Family Status - Relation Status Age at Mother Alive Father Level of Service:84331 HI OFFICE/OUTPATIENT ESTABLISHED MOD MDM 30 MIN Normal [facility] Visiton 06-26-2024 Follow-up visit [id number] Adeel Crain 1965 M Date Provider Department Center 06/26/2024 VIET MARIA Family History Problem Relation Age of Onset Atrial fibrillation Mother Alzheimer's disease Mother Family Status - Relation Status Age at Mother Level of Service:79572 HI OFFICE/OUTPATIENT ESTABLISHED MOD MDM 30 MIN Normal [facility] 30on 05-06-2024 30 Problem: Discharge Planning Goal: [...] goals for the shift include VSS Normal [facility] 30 The patient is Moderately Stable - [...] symptoms of volume excess or deficit Normal [facility] BASIC METABOLIC PANELon 08-0 Anion gap [Moles/Vol] 13 mmol/L Normal - [facility] Comment on above: Performed By: #### L [id number] ####[facility] ([facility])[address] [place] [address] Calcium [Mass/Vol] 8.5 mg/dL Low 8.6-10.3 [facility] [place] [facility] Comment on above: Performed By: #### L [id number] ####[facility] ([facility])[address] [place] [address] Chloride [Moles/Vol] 103 mmol/L Normal 98-107 [facility] Comment on above: Performed By: #### L [id number] ####[facility] ([facility] [place] [address] CO2 [Moles/Vol] 25 mmol/L Normal 21-31 [facility] Comment on above: Performed By: #### L [id number] ####[facility] ([facility])[address] [place] [address] Creatinine [Mass/Vol] 0.91 mg/dL Normal 0.70-1.30 [facility] Comment on above: Performed By: #### L [id number] ####[facility] ([facility])[address] [place] [address] GLOMERULAR FILTRATION RATE ML/MIN/1.73 SQ M.PREDICTED 96.5 mL/min/1.73m*2 Normal >60.0 [facility] Comment on above: Result Comment: The [facility]???s estimated glomerular filtration rate (eGFR) will no [...] of individuals. Performed By: #### L AB15 ####[facility] ([facility])[address] [place] [address] Glucose [Mass/Vol] 83 mg/dL Normal 70-100 [facility] [place] [facility] Comment on above: Performed By: #### L [id number] ####[facility] ([facility])[address] [place] [address] Potassium [Moles/Vol] 3.5 mmol/L Normal 3.5-5.1 [facility] Comment on above: Performed By: #### L [id number] ####[facility] ([facility]ER)[address] [place] [address] Sodium [Moles/Vol] 137 mmol/L Normal 136-145 [facility] [place] [facility] Comment on above: Performed By: #### L AB15 ####[facility] (BE[facility]ER)[address] [place] [address] Urea nitrogen [Mass/Vol] 14 mg/dL Normal 7-25 [facility] Comment on above: Performed By: #### L [id number] ####[facility] (BE[facility]ER)[address] [place] [address] UREA NITROGEN/CREATININE (MASS RATIO) IN SER/PLAS 15.4 Normal [facility] Comment on above: Performed By: #### L [id number] ####[facility] ([facility]ER)[address] [place] [address] CBCon 05-06-2024 Erythrocyte distribution width (RBC) [Ratio] 13.7 % Normal 11.5-15.0 [facility] Comment on above: Performed By: #### L [id number] ####[facility] (BEAKER)[address] [place] [address] ERYTHROCYTE MEAN CORPUSCULAR HEMOGLOBIN CONCENTRATION (G/DL) BY AUTOMATED 32.1 g/dL Normal 32.0-35.0 [facility] Comment on above: Performed By: #### L [id number] ####[facility] (BEAKER)[address] [place] [address] Hematocrit (Bld) [Volume fraction] 43.0 % Normal 39.0-55.0 [facility] Comment on above: Performed By: #### L [id number] ####[facility] (BEAKER)[address] [place] [address] Hemoglobin (Bld) [Mass/Vol] 13.8 g/dL Normal 13.0-17.0 [facility] Comment on above: Performed By: #### L [id number] ####[facility] (BE[facility]ER)[address] [facility] [address] MCH (RBC) [Entitic mass] 29.9 pg Normal 27.0-33.0 [facility] Comment on above: Performed By: #### L [id number] ####[facility] ([facility])[address] [place] [address] MCV (RBC) [Entitic vol] 93.3 fL Normal 82.0-98.0 [facility] Comment on above: Performed By: #### L [id number] ####[facility] ([facility])[address] [place] [address] PLATELETS (10*3/UL) IN BLOOD AUTOMATED COUNT 204 10*3/uL Normal 150-400 [facility] Comment on above: Performed By: #### L [id number] ####[facility] ([facility])[address] [facility] [address] RBC (Bld) [#/Vol] 4.61 10*6/uL Normal 4.20-5.70 [facility] Comment on above: Performed By: #### L [id number] ####[facility] ([facility])[address] [facility] [address] WBC (Bld) [#/Vol] 10.27 10*3/uL Normal 4.00-10.60 [facility] Comment on above: Performed By: #### L [id number] ####[facility] ([facility])[address] [facility] [place] [address] DSon 05-06-2024 DS Admission Admitted 05/05/2024 for [...] output and cardiac index. Presence of significant xnmg-vi-lchmh shunt at the atrial septal level [The [...] 3.5 Chlori (more content not included)... Normal [facility] NURSNOTEon 05-06-2024 NURSNOTE Discharge paperwork gone over and explained to pt and family member at this time. All questions answered at bedside. Pt and family denies further questions. Pt discharged. [facility] 30on 05-05-2024 30 Problem: Discharge Planning Goal: [...] for the shift include stable hemodynamics Normal [facility] HPon 05-05-2024 History Of Present Illness Tracie [...] evidence of right-sided volume overload due to nxqz-zg-rwwqh shunting despite optimization of medical therapy. Past [...] The patie (more content not included)... Normal [facility] NURSNOTEon 05-05-2024 NURSNOTE Report given to Caroline gonzalez RN from [facility] Any medications or safety alerts were reviewed. Any pending diagnostics and notifications were also reviewed, as well as any safety concerns or issues, abnormal labs, abnormal imagining, and abnormal assessment findings. Questions were answered. Normal [facility] NURSNOTE Dr. Lee notified of ACT being 231. Dr. Lee verbally ordered transfer to ICU and is contacting Dr. Salas to notify him of elevated ACT, and to discuss further action. Normal [facility] NURSNOTE CHG wipes and betadi ne nasal swabs completed. Normal [facility] NURSNOTE This report has been cancelled. Normal [facility] POCT ACTIVATED CLOTTING TIME UNSOLICITED RESULTSon 05-05-2024 POC ACTIVATED CLOTTING TIME 154 sec High 82-152 [facility] Comment on above: Performed By: #### L [id number] ####[facility] (BEAKER)[address] [place] [address] Letter (Out)on 04-14-2024 Letter (Out) [id number] Adeel Crain 1965 [facility] Provider Department Center 04/14/2024 None-None [facility] Family History Problem Relation Age of Onset Atrial fibrillation Mother Alzheimer's disease Mother Family Status - Relation Status Age at Mother [facility] Letter (Out)on 04-10-2024 Letter (Out) [id number] Adeel Crain 1965 [facility] Provider Department Center 04/10/2024 None-None [facility] Family History Problem Relation Age of Onset Atrial fibrillation Mother Alzheimer's disease Mother Family Status - Relation Status Age at Mother [facility] Letter (Out)on 04-08-2024 Letter (Out) [id number] Adeel Crain 1965 M Date Provider Department Center 04/08/2024 None-None [facility] AUTH IN Medical C Family History Problem Relation Age of Onset Atrial fibrillation Mother Alzheimer's disease Mother Family Status - Relation Status Age at Mother Normal [facility] Office Visiton 03-26-2024 Follow-up visit [id number] Adeel Crain 1965 M Date Provider Department Center 03/26/2024 VIET MARIA [facility] Family History Problem Relation Age of Onset Atrial fibrillation Mother Alzheimer's disease Mother Family Status - Relation Status Age at Mother Level of Service:34990 HI OFFICE/OUTPATIENT ESTABLISHED HIGH MDM 40 MIN [facility] HPon 02-28-2024 H&P reviewed. The patient was examined and there are no changes to the H&P. [facility] I have seen and examined [...] When compared with ECG of 21-MAR-2019 20:42, HI interval has decreased, Vent. rate has increased [...] posterior mitral (more content not included)... Normal [facility] NURSNOTEon 02-28-2024 NURSNOTE RN educated pt on d/ c instructions. RN encouraged pt to voice any questions or concerns. Pt verbalizes no questions or concerns at this time. Pt was wheeled off of unit with all of belongings. Normal [facility] NURSNOTE Bedside swallow stud y completed and passed. [facility] ECHOCARDIO M/2D COMPLETEon 0 02-05-2023 ECHOCARDIO M/2D COMPLETE Patient: TRACIE CRAIN Exam Date: 02/05/2023 : 1965 Gender:M Ordering : DR VIET SALAS M.D. Admission #: [id number] Family : Order #: [id number] CLICK HERE TO VIEW EXAM ECHOCARDIOGRAM REPORT [...] Jenkins M.D. on 02/05/2023 at 16:31 Normal [facility] BNPon 12-19-2022 Natriuretic peptide B (Bld) [Mass/Vol] 859.0 pg/mL Normal <=900.0 [facility] Comment on above: Performed By: #### B MP, BNP #### [facility] [address] [place] [address] Dr. Leonie Beckham PROF CHEM 8 (BAS METB)on Anion gap [Moles/Vol] 9.9 mmol/L Normal [facility] Comment on above: Performed By: #### B MP, BNP #### [facility] [address] [place] [address] Dr. Leonie Beckham Calcium [Mass/Vol] 9.4 mg/dL Normal 8.5-10.1 [facility] Comment on above: Performed By: #### B MP, BNP #### [facility] [address] [place] [address] Dr. Leonie Beckham Chloride [Moles/Vol] 102 mmol/L Normal 98-107 [facility] Comment on above: Performed By: #### B MP, BNP #### [facility] [address] [address] [address] Leonie Beckham CO2 [Moles/Vol] 32.0 mmol/L Normal 21.0-32.0 [facility] Comment on above: Performed By: #### B MP, BNP #### [facility] [address] [place] [address] Dr. Leonie Beckham Creatinine [Mass/Vol] 1.17 mg/dL Normal 0.70-1.30 [facility] Comment on above: Performed By: #### B MP, BNP #### [facility] [address] [place] [address] Dr. Leonie Beckham EGFR-AF MARTINIQUAIS >60 Normal >=60 [facility] Comment on above: Performed By: #### B MP, BNP #### [facility] [address] [place] [address] Dr. Leonie Beckham EGFR-NON AF MARTINIQUAIS >60 Normal >=60 [facility] Comment on above: Performed By: #### B MP, BNP #### [facility] [address] [place] [address] Dr. Leonie Beckham Glucose [Mass/Vol] 106 mg/dL Normal 74-106 [facility] Comment on above: Performed By: #### B MP, BNP #### [facility] [address] [place] [address] Dr. Leonie Beckham Potassium [Moles/Vol] 3.9 mmol/L Normal 3.5-5.1 [facility] Comment on above: Performed By: #### B MP, BNP #### [facility] [address] [place] [address] Dr. Leonie Beckham Sodium [Moles/Vol] 140 mmol/L Normal 136-145 [facility] Comment on above: Performed By: #### B MP, BNP #### [facility] [address] [place] [address] Dr. Leonie Beckham Urea nitrogen [Mass/Vol] 25.0 mg/dL Critically high 7.0-18.0 [facility] Comment on above: Performed By: #### B MP, BNP #### [facility] [address] [place], [place] [address] Dr. Leonie Beckham Urea nitrogen/Creatinine [Mass ratio] 21.4 mg/mg Normal [facility] Comment on above: Performed By: #### B MP, BNP #### [facility] [address] [place], [place] [address] Dr. Leonie Beckham ECHOCARDIO M/2D COMPLETEon 0 11-09-2022 ECHOCARDIO M/2D COMPLETE Patient: TRACIE CRAIN Exam Date: 11/09/2022 : 1965 Gender:M Ordering : DR VIET SALAS M.D. Admission #: [id number] Family : DR TITUS VILLEGAS . Order #: [id number] CLICK HERE TO VIEW EXAM ECHOCARDIOGRAM REPORT [...] M.D. on 11/09/2022 at 16:31 Normal [facility] PROF CHEM 8 (BAS METB)on Anion gap [Moles/Vol] 8.0 mmol/L Normal [facility] Comment on above: Performed By: #### B MP #### [facility] [address] [address] [address] Leonie Beckham Calcium [Mass/Vol] 8.6 mg/dL Normal 8.5-10.1 [facility] Comment on above: Performed By: #### B MP #### [facility] [address] [address] [address] Leonie Beckham Chloride [Moles/Vol] 102 mmol/L Normal 98-107 [facility] Comment on above: Performed By: #### B MP #### [facility] [address] [address] [address] Leonie Beckham CO2 [Moles/Vol] 31.5 mmol/L Normal 21.0-32.0 [facility] Comment on above: Performed By: #### B MP #### [facility] [address] [place] [address] Dr. Leonie Beckham Creatinine [Mass/Vol] 1.13 mg/dL Normal 0.70-1.30 [facility] Comment on above: Performed By: #### B MP #### [facility] [address] [address] [address] Leonie Beckham EGFR-AF MARTINIQUAIS >60 Normal >=60 [facility] Comment on above: Performed By: #### B MP #### [facility] [address] [place] [address] Dr. Leonie Beckham EGFR-NON AF MARTINIQUAIS >60 Normal >=60 [facility] Comment on above: Performed By: #### B MP #### [facility] [address] [address] [address] Leonie Beckham Glucose [Mass/Vol] 100 mg/dL Normal 74-106 [facility] Comment on above: Performed By: #### B MP #### [facility] [address] [address] [address] Leonie Beckham Potassium [Moles/Vol] 3.5 mmol/L Normal 3.5-5.1 [facility] Comment on above: Performed By: #### B MP #### [facility] [address] [address] [address] Leonie Beckham Sodium [Moles/Vol] 138 mmol/L Normal 136-145 [facility] Comment on above: Performed By: #### B MP #### [facility] [address] [address] [address] Leonie Beckham Urea nitrogen [Mass/Vol] 24.0 mg/dL Critically high 7.0-18.0 [facility] Comment on above: Performed By: #### B MP #### [facility] [address] [address] [address] Leonie Beckham Urea nitrogen/Creatinine [Mass ratio] 21.2 mg/mg Normal [facility] Comment on above: Performed By: #### B MP #### [facility] [address] [address] [address] Leonie Beckham ECHOCARDIO M/2D COMPLETEon 0 06-27-2022 ECHOCARDIO M/2D COMPLETE Patient: TRACIE CRAIN Exam Date: 06/27/2022 : 1965 Gender:M Ordering : [facility] Admission #: [id number] Family : DR TITUS VILLEGAS . Order #: [id number] CLICK HERE TO VIEW EXAM ECHOCARDIOGRAM REPORT [...] Viet Salas M.D. on 06/27/2022 at 18:[address] [facility] VC CONSULT FOLLOWUPon 2021 VC CONSULT FOLLOWUP Patient: TRACIE CRAIN Exam Date: 06/13/2022 : 1965 Gender:M Ordering : DR MELIDA CUELLAR M.D. Admission #: [id number] Family : Order #: [id number] CLICK HERE TO VIEW EXAM RADIOLOGY REPORT [...] Cuellar MD on 06/13/2022 at 14:59 Normal [facility] VC EXT VENOUS RT LIMITEDon 0 06-13-2022 VC EXT VENOUS RT LIMITED Patient: TRACIE CRAIN Exam Date: 06/13/2022 : 1965 Gender:M Ordering : DR MELIDA CUELLAR M.D. Admission #: [id number] Family : Order #: [id number] CLICK HERE TO VIEW EXAM RADIOLOGY REPORT [...] veins in the medial right leg. 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 Admission #: [id number] Family : Order #: [id number] CLICK HERE TO VIEW EXAM RADIOLOGY REPORT [...] for (more content not included)... Normal [facility] VC CONSULT FOLLOWUPon 2021 VC CONSULT FOLLOWUP Patient: TRACIE CRAIN Exam Date: 06/01/2022 : 1965 Gender:M Ordering : DR MELIDA CUELLAR M.D. Admission #: [id number] Family : Order #: [id number] CLICK HERE TO VIEW EXAM RADIOLOGY REPORT [...] Cuellar MD on 06/01/2022 at 09:48 Normal [facility] VC EXT VENOUS LT LIMITEDon 0 06-01-2022 VC EXT VENOUS LT LIMITED Patient: TRACIE CRAIN Exam Date: 06/01/2022 : 1965 Gender:M Ordering : DR MELIDA CUELLAR M.D. Admission #: [id number] Family : Order #: [id number] CLICK HERE TO VIEW EXAM RADIOLOGY REPORT [...] Cuellar MD on 06/01/2022 at 09:29 Normal [facility] VC INJ FOAM SCLERO W US MLTI on 05-25-2022 VC INJ FOAM SCLERO W US MLTI Patient: TRACIE CRAIN Exam Date: 05/25/2022 : 1965 Gender:M Ordering : DR MELIDA CUELLAR M.D. Admission #: [id number] Family : Order #: [id number] CLICK HERE TO VIEW EXAM RADIOLOGY REPORT [...] Aguilar M.D. on 05/25/2022 at 11:44 Normal [facility] VC CONSULT FOLLOWUPon 2021 VC CONSULT FOLLOWUP Patient: TRACIE CRAIN Exam Date: 05/14/2022 : 1965 Gender:M Ordering : DR MELIDA CUELLAR M.D. Admission #: [id number] Family : Order #: [id number] CLICK HERE TO VIEW EXAM RADIOLOGY REPORT [...] Lynda Aguilar M.D. on 05/14/2022 at 09:[address] [facility] VC EXT VENOUS RT LIMITEDon 0 05-14-2022 VC EXT VENOUS RT LIMITED Patient: TRACIE CRAIN Exam Date: 05/14/2022 : 1965 Gender:M Ordering : DR MELIDA CUELLAR M.D. Admission #: [id number] Family : Order #: [id number] CLICK HERE TO VIEW EXAM RADIOLOGY REPORT [...] Aguilar M.D. on 05/14/2022 at 09:35 Normal [facility] VC ENDOVENOUS ABL PERFORATIN G RTon 05-10-2022 VC ENDOVENOUS ABL PERFORATING RT Patient: TRACIE CRAIN Exam Date: 05/10/2022 : 1965 Gender:M Ordering : DR MELIDA CUELLAR M.D. Admission #: [id number] Family : Order #: [id number] CLICK HERE TO VIEW EXAM RADIOLOGY REPORT PROCEDURE: [facility] ENDOVENOUS ABLATION FOR VEIN RIGHT GREAT SAPHENOUS VEIN COMPARISON: None. INDICATIONS: Pain co-occurrent and due to varicose veins of bilateral legs I83.813 OPERATIVE REPORT: Diagnosis: Superficial venous reflux, incompetent perforating veins Procedure: Endovenous laser ablation of the left bank accountant(s) Procedure: The patient was positioned supine on [...] Cuellar MD on 05/10/2022 at 10:50 Normal [facility] VC CONSULT FOLLOWUPon 2021 VC CONSULT FOLLOWUP Patient: TRACIE CRAIN Exam Date: 05/04/2022 : 1965 Gender:M Ordering : DR MELIDA CUELLAR M.D. Admission #: [id number] Family : Order #: [id number] CLICK HERE TO VIEW EXAM RADIOLOGY REPORT [...] Aguilar M.D. on 05/04/2022 at 08:38 Normal [facility] VC EXT VENOUS LT LIMITEDon 0 05-04-2022 VC EXT VENOUS LT LIMITED Patient: LOUANNTRACIE BOJORQUEZ Exam Date: 05/04/2022 : 1965 Gender:M Ordering : DR MELIDA CUELLAR M.D. Admission #: [id number] Family : Order #: [id number] CLICK HERE TO VIEW EXAM RADIOLOGY REPORT [...] Aguilar M.D. on 05/04/2022 at 08:32 Normal [facility] VC ENDOVENOUS ABL 1ST V LTon 04-27-2022 VC ENDOVENOUS ABL 1ST V LT Patient: TRACIE CRAIN Exam Date: 04/27/2022 : 1965 Gender:M Ordering : DR MELIDA CUELLAR M.D. Admission #: [id number] Family : Order #: [id number] CLICK HERE TO VIEW EXAM RADIOLOGY REPORT [...] M.D. on 04/27/2022 at 10:32 Normal [facility] CBC AUTO DIFFon 04-05-2022 BASO # 0.1 103/ul Normal 0.0-0.1 [facility] Comment on above: Performed By: #### C BC ####[facility] [address] [address]Dr. Leonie Beckham Basophils/100 WBC (Bld) 1.2 % Normal 0.2-2.0 [facility] Comment on above: Performed By: #### C BC ####[facility] [address] [place], [place] [address]DrGabino Beckham EO # 0.3 103/ul Normal 0.0-0.7 [facility] Comment on above: Performed By: #### C BC ####[facility] [address] [address]DrGabino Beckham Eosinophils/100 WBC (Bld) 3.9 % Normal 0.9-7.0 [facility] Comment on above: Performed By: #### C BC ####[facility] [address] [place], [place] [address]DrGabino Beckham Erythrocyte distribution width (RBC) [Ratio] 13.2 % Normal 11.0-15.0 [facility] Comment on above: Performed By: #### C BC ####[facility] [address] [place], [place] [address]DrGabino Beckham Hematocrit (Bld) [Volume fraction] 43.5 % Normal 42.0-54.0 [facility] Comment on above: Performed By: #### C BC ####[facility] [address] [address]DrGabino Beckham Hemoglobin (Bld) [Mass/Vol] 13.9 g/dL Critically low 14.0-18.0 [facility] Comment on above: Performed By: #### C BC ####[facility] [address] [address]DrGabino Beckham IG # 0.03 10e3/ul Normal 0.00-0.03 [facility] Comment on above: Performed By: #### C BC ####[facility] [address] [place], [place] [address]DrGabino Beckham IG % 0.4 % Normal 0.0-0.5 [facility] Comment on above: Performed By: #### C BC ####[facility] [address] [place], [place] [address]DrGabino Beckham LYMPH # 2.0 103/ul Normal 1.2-3.8 [facility] Comment on above: Performed By: #### C BC ####[facility] [address] [place], [place] [address]DrGabino Beckham Lymphocytes/100 WBC (Bld) 25.0 % Normal 20.5-60.0 [facility] Comment on above: Performed By: #### C BC ####[facility] [address] [address]DrGabino Beckham MANUAL DIFF REQ NO Normal [facility] Comment on above: Performed By: #### C BC ####[facility] [address] [address]DrGabino Beckham MCH (RBC) [Entitic mass] 30.2 pg Normal 25.9-34.0 [facility] Comment on above: Performed By: #### C BC ####[facility] [address] [address]DrGabino Beckham MCHC (RBC) [Mass/Vol] 32.0 g/dL Normal 29.9-35.2 [facility] Comment on above: Performed By: #### C BC ####[facility] [address] [address]DrGabino Beckham MCV (RBC) [Entitic vol] 94.4 fL Critically high 80.0-94.0 [facility] Comment on above: Performed By: #### C BC ####[facility] [address] [address]DrGabino Beckham MONO # 1.0 103/ul Critically high 0.3-0.8 [facility] Comment on above: Performed By: #### C BC ####[facility] [address] [address]DrGabino Beckham Monocytes/100 WBC (Bld) 12.0 % Normal 1.7-12.0 [facility] Comment on above: Performed By: #### C BC ####[facility] [address]fpkw[address] [address] [place], [place] [address]DrGabino Beckham NEUT # 4.6 103/ul Normal 1.4-6.5 [facility] Comment on above: Performed By: #### C BC ####[facility] [address] [place], [place] [address]DrGabino Beckham Neutrophils/100 WBC (Bld) 57.5 % Normal 43.0-75.0 [facility] Comment on above: Performed By: #### C BC ####[facility] Bxw[address]dasdr[address] [place], [place] [address]DrGabino Beckham Platelet mean volume (Bld) [Entitic vol] 9.4 fL Critically low 9.5-13.5 [facility] Comment on above: Performed By: #### C BC ####[facility] [address] [place], [place] [address]DrGabino Beckham PLT 203 103/ul Normal 150-450 [facility] Comment on above: Performed By: #### C BC ####[facility] Wxbgvsvvkq27[address] [place] [id number] Beckham RBC 4.61 106/ul Critically low 4.70-6.10 [facility] Comment on above: Performed By: #### C BC ####[facility] Aoirtbkpig0913 [place] [address]Dr. Leonie Beckham WBC 8.0 103/ul Normal 4.0-11.0 [facility] Comment on above: Performed By: #### C BC ####[facility] Tunqwkangk[address] [place] [id number]. Leonie Beckham FREE T3on 04-05-2022 FREE T3 2.54 pg/mlL Normal 2.18-3.98 [facility] Comment on above: Performed By: #### T SH, LIPID, CMP, T4, FT3 ####[facility] Mtprljrqmj3535 [place] [address]Dr. Leonie Beckham GLYCOHEMOGLOBIN A1Con 2021 ADA RECOMMENDATION SEE BELOW Normal [facility] Comment on above: Result Comment: ADA RECOMMENDED LIMIT 4.0 - 6.0 ADA THERAPEUTIC TARGET < 7.0 ACTION SUGGESTED > 7.0 Performed By: #### A 1C ####[facility] Iouqjfepgc[address] [place] [address]Dr. Leonie Beckham Glucose [Mass/Vol] 126 mg/dL Normal [facility] Comment on above: Performed By: #### A 1C ####[facility] Lietfnhvbb9202 [place] [address]Dr. Leonie Beckham HbA1c (Bld) [Mass fraction] 6.0 % Normal 4.5-6.2 [facility] Comment on above: Performed By: #### A 1C ####[facility] Ptkcubdpzm45[address] [place] [address]Dr. Leonie Beckham LIPID PROFILEon 04-05-2022 CHOL-HDL RATIO NORM SEE BELOW Normal [facility] Comment on above: Result Comment: 3.3 - 4.4 LOW RISK 4.4 - 7.1 AVERAGE RISK 7.1 - 11.0 MODERATE RISK >11.0 HIGH RISK Performed By: #### T SH, LIPID, CMP, T4, FT3 ####[facility] Vvybemdsvg[address] [place] [address]Dr. Leonie Beckham Cholesterol [Mass/Vol] 137 mg/dL Normal <=200 [facility] Comment on above: Performed By: #### T SH, LIPID, CMP, T4, FT3 ####[facility] Gywprhcbym30[address] [place] [address]Dr. Leonie Beckham Cholesterol in HDL [Mass/Vol] 40 mg/dL Normal 40-60 [facility] Comment on above: Performed By: #### T SH, LIPID, CMP, T4, FT3 ####[facility] Xagyjcccbs2238 [place] [address]Dr. Leonie Beckham Cholesterol in LDL [Mass/Vol] 84.0 mg/dL Normal [facility] Comment on above: Performed By: #### T SH, LIPID, CMP, T4, FT3 ####[facility] Mdoyhxpnil0724 [place] [address]Dr. Leonie Beckham Cholesterol.total/Ch olesterol in HDL [Mass ratio] 3.4 {ratio} Normal [facility] Comment on above: Performed By: #### T SH, LIPID, CMP, T4, FT3 ####[facility] Koqolzrmto[address] [place] [address]Dr. Leonie Beckham HDL NORMAL > or = 60 mg/dl - LO W CARDIOVASCULAR RISK <40 mg/dl - HIGH CARDIOVASCULAR RISK Normal [facility] Comment on above: Performed By: #### T SH, LIPID, CMP, T4, FT3 ####[facility] Espbgkdgyu50[address] [place] [address]Dr. Leonie Beckham LDL CALC NORMAL SEE BELOW Normal [facility] Comment on above: Result Comment: <100 mg/dl OPTIMAL 100 - 129 mg/dl NEAR OR ABOVE OPTIMAL 130 - 159 mg/dl BORDERLINE HIGH 160 - 189 mg/dl HIGH >190 mg/dl VERY HIGH Performed By: #### T SH, LIPID, CMP, T4, FT3 ####[facility] Woavcxpjlm55[address] [place] [address]Dr. Kaleighlan Beckham Triglyceride [Mass/Vol] 65 mg/dL Normal <=150 [facility] Comment on above: Performed By: #### T SH, LIPID, CMP, T4, FT3 ####[facility] Rplywkegiq5767 [place] [address]Dr. Leonie Beckham VLDL CALC 13.0 mg/dL Normal [facility] Comment on above: Performed By: #### T SH, LIPID, CMP, T4, FT3 ####[facility] Yvlvcueqps08[address] [place] [address]Dr. Leonie Beckham PROF 14(COMP METB)on 022 Albumin [Mass/Vol] 3.8 g/dL Normal 3.4-5.0 [facility] Comment on above: Performed By: #### T SH, LIPID, CMP, T4, FT3 ####[facility] Xfvdmygemq9332 [place] [address]Dr. Leonie Beckham Albumin/Globulin [Mass ratio] 1.2 {ratio} Normal [facility] Comment on above: Performed By: #### T SH, LIPID, CMP, T4, FT3 ####[facility] Pnsbiwzzyq4527 [place] [address]Dr. Leonie Beckham ALP [Catalytic activity/Vol] 81 U/L Normal 46-116 [facility] Comment on above: Performed By: #### T SH, LIPID, CMP, T4, FT3 ####[facility] Aahhfotfrw0919 [place] [address]Dr. Leonie Beckham ALT [Catalytic activity/Vol] 35 U/L Normal 16-63 [facility] Comment on above: Performed By: #### T SH, LIPID, CMP, T4, FT3 ####[facility] Mzwtnmmtqg0639 [place] [address]Dr. Leonie Beckham Anion gap [Moles/Vol] 10.8 mmol/L Normal [facility] Comment on above: Performed By: #### T SH, LIPID, CMP, T4, FT3 ####[facility] Izxgmlgbnk5[address] [place] [address]Dr. Leonie Beckham AST [Catalytic activity/Vol] 22 U/L Normal 15-37 [facility] Comment on above: Performed By: #### T SH, LIPID, CMP, T4, FT3 ####[facility] Kjfrmgfyta[address] [place] [address]Dr. Leonie Beckham Bilirubin [Mass/Vol] 1.1 mg/dL Critically high 0.2-1.0 [facility] Comment on above: Performed By: #### T SH, LIPID, CMP, T4, FT3 ####[facility] Vwhdvgnlwj3960 [place] [address]Dr. Leonie Beckham Calcium [Mass/Vol] 8.6 mg/dL Normal 8.5-10.1 [facility] Comment on above: Performed By: #### T SH, LIPID, CMP, T4, FT3 ####[facility] Icuetcilky99[address] [place] [address]Dr. Leonie Beckham Chloride [Moles/Vol] 105 mmol/L Normal 98-107 [facility] Comment on above: Performed By: #### T SH, LIPID, CMP, T4, FT3 ####[facility] Qoeatzsbtf[address] [place], [place] [address]Dr. Leonie Beckham CO2 [Moles/Vol] 28.2 mmol/L Normal 21.0-32.0 [facility] Comment on above: Performed By: #### T SH, LIPID, CMP, T4, FT3 ####[facility] E[address]yz[address] [place], [place] [address]Dr. Leonie Beckham Creatinine [Mass/Vol] 1.33 mg/dL Critically high 0.70-1.30 [facility] Comment on above: Performed By: #### T SH, LIPID, CMP, T4, FT3 ####[facility] Enblxugqiw[address] [place], [place] [address]Dr. Leonie Beckham EGFR-AF MARTINIQUAIS >60 Normal >=60 [facility] Comment on above: Performed By: #### T SH, LIPID, CMP, T4, FT3 ####[facility] L[address]wunxqnq[address] [place], [place] [address]Dr. Leonie Beckham EGFR-NON AF MARTINIQUAIS 55 mL/min/1.73m2 Critically low >=60 [facility] Comment on above: Performed By: #### T SH, LIPID, CMP, T4, FT3 ####[facility] Fzkohcmoyx5[address] [place] [address]Dr. Leonie Beckham Globulin (S) [Mass/Vol] 3.3 g/dL Normal [facility] Comment on above: Performed By: #### T SH, LIPID, CMP, T4, FT3 ####[facility] Khpovbjqtx0508 [place] [address]Dr. Leonie Beckham Glucose [Mass/Vol] 94 mg/dL Normal 74-106 [facility] Comment on above: Performed By: #### T SH, LIPID, CMP, T4, FT3 ####[facility] Qzcdwekufc53[address] [place] [address]Dr. Leonie Beckham Potassium [Moles/Vol] 4.0 mmol/L Normal 3.5-5.1 [facility] Comment on above: Performed By: #### T SH, LIPID, CMP, T4, FT3 ####[facility] Jysubidfrj[address] [place], [place] [address]Dr. Leonie Beckham Protein [Mass/Vol] 7.1 g/dL Normal 6.4-8.2 [facility] Comment on above: Performed By: #### T SH, LIPID, CMP, T4, FT3 ####[facility] Zvlwdchtsa34[address] [place] [address]Dr. Leonie Beckham Sodium [Moles/Vol] 140 mmol/L Normal 136-145 [facility] Comment on above: Performed By: #### T SH, LIPID, CMP, T4, FT3 ####[facility] Xcxjgjokqo2826 [place] [address]Dr. Leonie Beckham Urea nitrogen [Mass/Vol] 24.0 mg/dL Critically high 7.0-18.0 [facility] Comment on above: Performed By: #### T SH, LIPID, CMP, T4, FT3 ####[facility] [address]vrmq[address]vv[address] [place], [place] [address]Dr. Leonie Beckham Urea nitrogen/Creatinine [Mass ratio] 18.0 mg/mg Normal [facility] Comment on above: Performed By: #### T SH, LIPID, CMP, T4, FT3 ####[facility] [address]ct[address] [place], [place] [address]Bx. Leonie Beckham T4on 04-05-2022 T4 [Mass/Vol] 7.70 ug/dL Normal 4.50-12.10 [facility] Comment on above: Performed By: #### T SH, LIPID, CMP, T4, FT3 ####[facility] Thdf[address]ywow[address] [place], [place] [address]Gu. Leonie Beckham TSHon 04-05-2022 TSH 3.042 uIU/mL Normal 0.358-3.740 [facility] Comment on above: Performed By: #### T SH, LIPID, CMP, T4, FT3 ####[facility] Hsv[address]ytmtgy1815 [place], [place] [address]Hb. Leonie Beckham VC COMP CONSULTATIONon 03-08 VC COMP CONSULTATION Patient: TRACIE CRAIN Exam Date: 03/08/2022 : 1965 Gender:M Ordering : DR TITUS VILLEGAS . 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 The [...] a (more content not included)... Normal [facility] Ambulatory Clinical Summaryo n 12-20-2020 Ambulatory Clinical Summary {[id number]}CD:[id number] Normal [facility] Coding Summary.on 12-20-2020 Coding Summary. CODING DATE: FINAL [facility] STATUS: Home (Routine DC) PAYOR: Commercial [...] Choi CphT Date Saved: 12/19/2020 11:58 pm [facility] General Surgery Office/Clini c Noteon [...] Tracie Diaz if needed [address] [place] [address]- Additional Instructions: Problem List/Past Medical [...] inactivated - Not Given Patient Refuses Normal [facility] Comment on above: Result Comment: Elec tronically Signed By: BONG ADKINS, Tracie Sarah\Date and Time Signed: 12/20/20 15:58 EDT Ambulatory Clinical Summaryo n 12-09-2020 Ambulatory Clinical Summary {[id number]}CD:[id number] Normal [facility] General Surgery Office/Clini c Noteon 12-09-2020 [...] inactivated - Not Given Patient Refuses Normal [facility] Comment on above: Result Comment: Elec tronically Signed By: BONG ADKINS, Tracie R\.br\Date and Time Signed: 12/09/20 09:30 EST Provider Letter FTon 11-30 Provider Letter [facility] (Inserted Image. Un able to display) Titus Villegas, [address] [place] [address] Re: TRACIE CRAIN Date of : 1965 Thank you for your referral of Tracie Crain who was seen on consultation on November 29, 2020, for growth on left lower back that is changing. An excisional biopsy is planned. I have enclosed my consultation notes for your review. I will be happy to follow Tracie. Sincerely, Tracie Woody MD General Surgery Normal [facility] Ambulatory Clinical Summaryo n 11-29-2020 Ambulatory Clinical Summary {[id number]}CD:[id number] Normal [facility] Physician Referralon 021 Physician Referral [id number] D:127 Normal [facility] Operative Reporton 9 Operative Report MR#: [id number] [facility] Pt. Name: Tracie Crain Room #: CC [...] form. The patient was brought to the label stitcher and transesophageal echocardiogram was performed under conscious [...] Reyna MD Date Trans: 05/12/2019 01:23 P/tylero [id number] cc: Titus Villegas M.D. [address] [address] Tmibo Black MD [address] [facility] [address] Normal [facility] BASIC METABOLIC PANELon 07-0 Calcium [Mass/Vol] 9.4 mg/dL Normal 8.6-10.3 [facility] Comment on above: Performed By: #### 0 0121, 98716, 18383, 60661, 69431 #### [facility] [address] [facility] [place] [address], [facility] Chloride [Moles/Vol] 99 mmol/L Normal 98-107 [facility] Comment on above: Performed By: #### 0 0121, 36054, 08311, 24377, 60332 #### [facility] [address] [facility] [place] [address], [facility] CO2 [Moles/Vol] 31 mmol/L Normal 21-31 [facility] Comment on above: Performed By: #### 0 0121, 59742, 31471, 05177, 51077 #### [facility] [address] [place] [address], [place] Creatinine [Mass/Vol] 1.22 mg/dL Normal 0.70-1.30 [facility] Comment on above: Performed By: #### 0 0121, 87558, 39355, 77256, 79764 #### [facility] [address] [place] [address], [place] GFR/1.73 sq M predicted among blacks MDRD (S/P/Bld) [Vol rate/Area] mL/min/{1.73_m2} Normal >60 [facility] Comment on above: Performed By: #### 0 0121, 65395, 91870, 48825, 88486 #### [facility] [address] [place] [address], [place] GFR/1.73 sq M predicted among non-blacks MDRD (S/P/Bld) [Vol rate/Area] mL/min/{1.73_m2} Normal >60 [facility] Comment on above: Performed By: #### 0 0121, 76922, 29529, 58875, 52501 #### [facility] [address] [place] [address], [place] Glucose [Mass/Vol] 126 mg/dL High 70-100 [facility] Comment on above: Performed By: #### 0 0121, 56425, 70364, 56436, 86727 #### [facility] [address] [place] [address], [place] Potassium [Moles/Vol] 3.8 mmol/L Normal 3.5-5.1 [facility] Comment on above: Performed By: #### 0 0121, 64584, 97240, 46975, 66982 #### [facility] [address] [place] [address], [place] Sodium [Moles/Vol] 139 mmol/L Normal 136-145 [facility] Comment on above: Performed By: #### 0 0121, 89706, 46427, 11170, 41740 #### [facility] [address] Urea nitrogen [Mass/Vol] 15 mg/dL Normal 7-25 [facility] Comment on above: Performed By: #### 0 0121, 67351, 38543, 69140, 56906 #### [facility] [address] BNP (B-TYPE NATRIURETIC PEPT PACHECO)on 04-07-2019 Natriuretic peptide B (Bld) [Mass/Vol] 502 pg/mL High 0-100 [facility] Comment on above: Result Comment: Give n the appropriate clinical setting a BNP result of >100 pg/mL indicates congestive heart failure. Performed By: #### 0 0121, 71987, 79835, 80452, 39013 #### [facility] [address] CBC W/DIFFon 04-07-2019 ABS BASOPHILS 0.1 10*3/uL Normal 0.0-0.2 [facility] Comment on above: Performed By: #### 0 0121, 41304, 52964, 05143, 50881 #### [facility] [address] ABS IMM GRANS 0.0 10*3/uL Normal 0.0-0.2 [facility] Comment on above: Performed By: #### 0 0121, 81778, 97847, 71823, 97510 #### [facility] [address] ABS NEUTROPHILS 5.1 10*3/uL Normal 1.6-7.6 [facility] Comment on above: Performed By: #### 0 0121, 49920, 97433, 93839, 51302 #### [facility] [address] Basophils/100 WBC (Bld) 1.5 % High 0.0-1.0 [facility] Comment on above: Performed By: #### 0 0121, 86446, 19519, 09941, 52759 #### [facility] [address] [place] [address], [facility] Eosinophils (Bld) [#/Vol] 0.3 10*3/uL Normal 0.0-0.5 [facility] Comment on above: Performed By: #### 0 0121, 88898, 91458, 97755, 27853 #### [facility] [address] [place] [address], [facility] Eosinophils/100 WBC (Bld) 3.7 % Normal 0.0-6.0 [facility] Comment on above: Performed By: #### 0 0121, 75122, 12049, 00952, 32081 #### [facility] [address] Erythrocyte distribution width (RBC) [Ratio] 13.2 % Normal 11.5-15.0 [facility] Comment on above: Performed By: #### 0 0121, 53438, 61233, 48265, 38757 #### [facility] [address] Hematocrit (Bld) [Volume fraction] 39.2 % Normal 39.0-50.0 [facility] Comment on above: Performed By: #### 0 0121, 22820, 79395, 97518, 12607 #### [facility] [address] [place] [address], [facility] Hemoglobin (Bld) [Mass/Vol] 12.4 g/dL Low 13.0-17.0 [facility] Comment on above: Performed By: #### 0 0121, 05709, 81559, 11337, 41947 #### [facility] [address] IMMATURE GRANS 0.4 % Normal 0.0-1.0 [facility] Comment on above: Performed By: #### 0 0121, 48511, 41289, 92761, 26685 #### [facility] [address] Lymphocytes (Bld) [#/Vol] 1.7 10*3/uL Normal 1.2-4.0 [facility] Comment on above: Performed By: #### 0 0121, 93205, 89724, 35393, 32775 #### [facility] [address] Lymphocytes/100 WBC (Bld) 21.2 % Normal 20.0-45.0 [facility] Comment on above: Performed By: #### 0 0121, 63672, 73533, 98414, 77622 #### [facility] [address] MCH (RBC) [Entitic mass] 28.8 pg Normal 27.0-33.0 [facility] Comment on above: Performed By: #### 0 0121, 74809, 83396, 81781, 84085 #### [facility] [address] MCHC (RBC) [Mass/Vol] 31.6 g/dL Low 32.0-35.0 [facility] Comment on above: Performed By: #### 0 0121, 33060, 55605, 42843, 83165 #### [facility] [address] MCV (RBC) [Entitic vol] 91.0 fL Normal 82.0-98.0 [facility] Comment on above: Performed By: #### 0 0121, 83857, 59453, 98985, 58033 #### [facility] [address] Monocytes (Bld) [#/Vol] 0.9 10*3/uL Normal 0.1-1.0 [facility] Comment on above: Performed By: #### 0 0121, 57404, 18378, 63755, 09522 #### [facility] [address] [place] [address], [facility] MONOS 10.6 % Normal 5.0-12.0 [facility] Comment on above: Performed By: #### 0 0121, 78293, 63308, 70817, 17184 #### [facility] [address] [place] [id number], [facility] Neutrophils/100 WBC (Bld) 62.6 % Normal 40.0-72.0 [facility] Comment on above: Performed By: #### 0 0121, 79470, 10881, 38251, 83372 #### [facility] [address] [place] [id number], [facility] Nucleated RBC/100 WBC (Bld) [Ratio] 0 % Normal 0-0 [facility] Comment on above: Performed By: #### 0 0121, 53300, 03043, 48707, 70889 #### [facility] [address] [place] [address], [place] PLAT CNT 520 10*3/uL High 150-400 [facility] Comment on above: Performed By: #### 0 0121, 68676, 41948, 64857, 92715 #### [facility] [address] [place] [address], [place] RBC (Bld) [#/Vol] 4.31 10*6/uL Normal 4.20-5.70 [facility] Comment on above: Performed By: #### 0 0121, 84687, 57490, 55678, 43371 #### [facility] [address] [place] [address], [place] WBC (Bld) [#/Vol] 8.20 10*3/uL Normal 4.00-10.60 [facility] Comment on above: Performed By: #### 0 0121, 18656, 39585, 11590, 77674 #### [facility] [address] [place] [address], [facility] HEMOGLOBINon 04-07-2019 Hemoglobin (Bld) [Mass/Vol] CANCELED Normal 13.0-17.0 [facility] Comment on above: Result Comment: The released value 12.3 was canceled by OCREEGER on 04/07/2019 12:48 Performed By: #### 0 0121, 80733, 26920, 34564, 94819 #### [facility] [address] [place] [address], [facility] BASIC METABOLIC PANELon - Calcium [Mass/Vol] 9.0 mg/dL Normal 8.6-10.3 [facility] Comment on above: Order Comment: No: D o not add to previous draw Performed By: #### 0 0121, 24936, 16642, 14028, 32135 #### [facility] [address] [place] [address], [facility] Chloride [Moles/Vol] 98 mmol/L Normal 98-107 [facility] Comment on above: Order Comment: No: D o not add to previous draw Performed By: #### 0 0121, 27878, 99161, 20516, 12362 #### [facility] [address] [place] [address], [place] CO2 [Moles/Vol] 29 mmol/L Normal 21-31 [facility] Comment on above: Order Comment: No: D o not add to previous draw Performed By: #### 0 0121, 42624, 92841, 11061, 29318 #### [facility] [address] [place] [address], [place] Creatinine [Mass/Vol] 1.00 mg/dL Normal 0.70-1.30 [facility] Comment on above: Order Comment: No: D o not add to previous draw Performed By: #### 0 0121, 51964, 96928, 41064, 41395 #### [facility] [address] [place] [address], [place] GFR/1.73 sq M predicted among blacks MDRD (S/P/Bld) [Vol rate/Area] mL/min/{1.73_m2} Normal >60 [facility] Comment on above: Order Comment: No: D o not add to previous draw Performed By: #### 0 0121, 01341, 98546, 55651, 67356 #### [facility] [address] [place] [address], [place] GFR/1.73 sq M predicted among non-blacks MDRD (S/P/Bld) [Vol rate/Area] mL/min/{1.73_m2} Normal >60 [facility] Comment on above: Order Comment: No: D o not add to previous draw Performed By: #### 0 0121, 58466, 35780, 83964, 27259 #### [facility] [address] [place] [address], [place] Glucose [Mass/Vol] 96 mg/dL Normal 70-100 [facility] Comment on above: Order Comment: No: D o not add to previous draw Performed By: #### 0 0121, 84909, 94132, 59792, 81471 #### [facility] [address] [place] [address], [place] Potassium [Moles/Vol] 3.1 mmol/L Low 3.5-5.1 [facility] Comment on above: Order Comment: No: D o not add to previous draw Performed By: #### 0 0121, 40433, 13200, 03214, 80655 #### [facility] [address] [place] [address], [place] Sodium [Moles/Vol] 138 mmol/L Normal 136-145 [facility] Comment on above: Order Comment: No: D o not add to previous draw Performed By: #### 0 0121, 48571, 71760, 92546, 39001 #### [facility] [address] [place] [address], [facility] Urea nitrogen [Mass/Vol] 24 mg/dL Normal 7-25 [facility] Comment on above: Order Comment: No: D o not add to previous draw Performed By: #### 0 0121, 18239, 51608, 30336, 32964 #### [facility] [address] [place] [address], [facility] CBC COMPLETE BLOOD COUNTon 0 - Erythrocyte distribution width (RBC) [Ratio] 13.6 % Normal 11.5-15.0 [facility] Comment on above: Order Comment: No: D o not add to previous draw Performed By: #### 0 0121, 03886, 01936, 74276, 48239 #### [facility] [address] [place] [address], [facility] Hematocrit (Bld) [Volume fraction] 34.7 % Low 39.0-50.0 [facility] Comment on above: Order Comment: No: D o not add to previous draw Performed By: #### 0 0121, 88051, 40977, 47048, 93801 #### [facility] [address] [place] [address], [facility] Hemoglobin (Bld) [Mass/Vol] 11.3 g/dL Low 13.0-17.0 [facility] Comment on above: Order Comment: No: D o not add to previous draw Performed By: #### 0 [id number], [id number], 87924, [id number], [id number] #### [facility] [address] [place] [address], [place] MCH (RBC) [Entitic mass] 28.8 pg Normal 27.0-33.0 [facility] Comment on above: Order Comment: No: D o not add to previous draw Performed By: #### 0 [id number], [id number], [id number], [id number], [id number] #### [facility] [address] [place] [address], [facility] MCHC (RBC) [Mass/Vol] 32.6 g/dL Normal 32.0-35.0 [facility] Comment on above: Order Comment: No: D o not add to previous draw Performed By: #### 0 0121, 44626, 72276, 63585, 08815 #### [facility] [address] [facility] [place] [address], [facility] MCV (RBC) [Entitic vol] 88.5 fL Normal 82.0-98.0 [facility] Comment on above: Order Comment: No: D o not add to previous draw Performed By: #### 0 0121, 29300, 83407, 55600, 44057 #### [facility] [address] Nucleated RBC/100 WBC (Bld) [Ratio] 0 % Normal 0-0 [facility] Comment on above: Order Comment: No: D o not add to previous draw Performed By: #### 0 0121, 09922, 23481, 83088, 73110 #### [facility] [address] [place] [address], [facility] PLAT CNT 205 10*3/uL Normal 150-400 [facility] Comment on above: Order Comment: No: D o not add to previous draw Performed By: #### 0 0121, 30029, 20246, 70593, 67354 #### [facility] [address] [place] [address], [facility] RBC (Bld) [#/Vol] 3.92 10*6/uL Low 4.20-5.70 [facility] Comment on above: Order Comment: No: D o not add to previous draw Performed By: #### 0 0121, 12033, 18552, 51932, 88763 #### [facility] [address] [place] [address], [facility] WBC (Bld) [#/Vol] 11.83 10*3/uL High 4.00-10.60 [facility] Comment on above: Order Comment: No: D o not add to previous draw Performed By: #### 0 0121, 81852, 51635, 56295, 45022 #### [facility] [address] [place] [address], [facility] MAGNESIUM BLOODon 03-27-2019 Magnesium [Mass/Vol] 2.3 mg/dL Normal 1.9-2.7 [facility] Comment on above: Order Comment: No: D o not add to previous draw Performed By: #### 0 0121, 84950, 73675, 44866, 58749 #### [facility] [address] [place] [address], [facility] POC GLUCOSE LABon 03-27-2019 Glucose [Mass/Vol] 115 mg/dL High 70-100 [facility] Comment on above: Performed By: #### 0 0121, 62979, 60622, 59352, 05383 #### [facility] [address] [place] [address], [facility] Glucose [Mass/Vol] 96 mg/dL Normal 70-100 [facility] Comment on above: Performed By: #### 0 0121, 78932, 73820, 68405, 83120 #### [facility] [address] [place] [address], [facility] PORTABLE CHEST 1 VIEWon 03-01 PORTABLE CHEST 1 VIEW [facility] Department of Radiology [address] [place] [address] [id number] ===== Patient Name: TRACIE CRAIN : 1965 Sex: M Age: Race: NA Pt. Location: [id number] Patient Status: I Ordered Date: 03/27/2019 5:00:00 [...] findings. Electronically signed by:Divya Collins. Transcribed by: [email or web address], User Resident: ANAI ALVARADO Electronically Signed by: DIVYA COLLINS @ 03/27/2019 09:07 AM I personally read this/these film(s) with this resident Normal [facility] Comment on above: Order Comment: No: D o not add to previous draw BASIC METABOLIC PANELon 03-01 Calcium [Mass/Vol] 9.2 mg/dL Normal 8.6-10.3 [facility] Comment on above: Order Comment: No: D o not add to previous draw Performed By: #### 0 0121, 73832, 78612, 58258, 20759 #### [facility] [address] [place] [address], [place] Chloride [Moles/Vol] 101 mmol/L Normal 98-107 [facility] Comment on above: Order Comment: No: D o not add to previous draw Performed By: #### 0 0121, 34322, 89486, 43479, 48104 #### [facility] [address] [place] [address], [place] CO2 [Moles/Vol] 27 mmol/L Normal 21-31 [facility] Comment on above: Order Comment: No: D o not add to previous draw Performed By: #### 0 0121, 19251, 39912, 02015, 35973 #### [facility] [address] [place] [address], [place] Creatinine [Mass/Vol] 0.93 mg/dL Normal 0.70-1.30 [facility] Comment on above: Order Comment: No: D o not add to previous draw Performed By: #### 0 0121, 57313, 60160, 34842, 97423 #### [facility] [address] [place] [address], [place] GFR/1.73 sq M predicted among blacks MDRD (S/P/Bld) [Vol rate/Area] mL/min/{1.73_m2} Normal >60 [facility] Comment on above: Order Comment: No: D o not add to previous draw Performed By: #### 0 0121, 03297, 44683, 51047, 68527 #### [facility] [address] [place] [address], [place] GFR/1.73 sq M predicted among non-blacks MDRD (S/P/Bld) [Vol rate/Area] mL/min/{1.73_m2} Normal >60 [facility] Comment on above: Order Comment: No: D o not add to previous draw Performed By: #### 0 0121, 59650, 08622, 66364, 57462 #### [facility] [address] [place] [address], [facility] Glucose [Mass/Vol] 111 mg/dL High 70-100 [facility] Comment on above: Order Comment: No: D o not add to previous draw Performed By: #### 0 0121, 14459, 57792, 58292, 01326 #### [facility] [address] [place] [address], [facility] Potassium [Moles/Vol] 3.9 mmol/L Normal 3.5-5.1 [facility] Comment on above: Order Comment: No: D o not add to previous draw Performed By: #### 0 0121, 35775, 23835, 68491, 15427 #### [facility] [address] [place] [address], [facility] Sodium [Moles/Vol] 137 mmol/L Normal 136-145 [facility] Comment on above: Order Comment: No: D o not add to previous draw Performed By: #### 0 0121, 40431, 85734, 71832, 53430 #### [facility] [address] [place] [address], [facility] Urea nitrogen [Mass/Vol] 26 mg/dL High 7-25 [facility] Comment on above: Order Comment: No: D o not add to previous draw Performed By: #### 0 0121, 65577, 95377, 40485, 54026 #### [facility] [address] [place] [address], [facility] CBC W/DIFFon 03-26-2019 ABS BASOPHILS 0.1 10*3/uL Normal 0.0-0.2 [facility] Comment on above: Order Comment: No: D o not add to previous draw Performed By: #### 0 0121, 07963, 83618, 49391, 58489 #### [facility] [address] [facility] [place] [address], [facility] ABS IMM GRANS 0.5 10*3/uL High 0.0-0.2 [facility] Comment on above: Order Comment: No: D o not add to previous draw Performed By: #### 0 0121, 28072, 06611, 45737, 29260 #### [facility] [address] [place] [address], [facility] ABS NEUTROPHILS 10.2 10*3/uL High 1.6-7.6 [facility] Comment on above: Order Comment: No: D o not add to previous draw Performed By: #### 0 0121, 30307, 28446, 24090, 12632 #### [facility] [address] [facility] [place] [address], [facility] Basophils/100 WBC (Bld) 0.6 % Normal 0.0-1.0 [facility] Comment on above: Order Comment: No: D o not add to previous draw Performed By: #### 0 0121, 21110, 92336, 97960, 36468 #### [facility] [address] [place] [address], [facility] Eosinophils (Bld) [#/Vol] 0.4 10*3/uL Normal 0.0-0.5 [facility] Comment on above: Order Comment: No: D o not add to previous draw Performed By: #### 0 0121, 17939, 82569, 31794, 46096 #### [facility] [address] [facility] [place] [address], [facility] Eosinophils/100 WBC (Bld) 2.8 % Normal 0.0-6.0 [facility] Comment on above: Order Comment: No: D o not add to previous draw Performed By: #### 0 0121, 75867, 65570, 44194, 49251 #### [facility] [address] [facility] Erythrocyte distribution width (RBC) [Ratio] 13.6 % Normal 11.5-15.0 [facility] Comment on above: Order Comment: No: D o not add to previous draw Performed By: #### 0 0121, 12957, 38541, 66604, 16871 #### [facility] [address] [place] [address], [facility] Hematocrit (Bld) [Volume fraction] 34.5 % Low 39.0-50.0 [facility] Comment on above: Order Comment: No: D o not add to previous draw Performed By: #### 0 0121, 42052, 78534, 83485, 38843 #### [facility] [address] Hemoglobin (Bld) [Mass/Vol] 11.3 g/dL Low 13.0-17.0 [facility] Comment on above: Order Comment: No: D o not add to previous draw Performed By: #### 0 0121, 55736, 85497, 98857, 18966 #### [facility] [address] [facility] [place] [address], [facility] IMMATURE GRANS 3.5 % High 0.0-1.0 [facility] Comment on above: Order Comment: No: D o not add to previous draw Performed By: #### 0 0121, 58324, 92612, 95495, 32253 #### [facility] [address] [place] [address], [facility] Lymphocytes (Bld) [#/Vol] 1.3 10*3/uL Normal 1.2-4.0 [facility] Comment on above: Order Comment: No: D o not add to previous draw Performed By: #### 0 0121, 60908, 79989, 28961, 57472 #### [facility] [address] [place] [address], [facility] Lymphocytes/100 WBC (Bld) 9.2 % Low 20.0-45.0 [facility] Comment on above: Order Comment: No: D o not add to previous draw Performed By: #### 0 0121, 81493, 85085, 18588, 56067 #### [facility] [address] [place] [address], [facility] MCH (RBC) [Entitic mass] 28.9 pg Normal 27.0-33.0 [facility] Comment on above: Order Comment: No: D o not add to previous draw Performed By: #### 0 0121, 57259, 45796, 23103, 08483 #### [facility] [address] [place] [address], [facility] MCHC (RBC) [Mass/Vol] 32.8 g/dL Normal 32.0-35.0 [facility] Comment on above: Order Comment: No: D o not add to previous draw Performed By: #### 0 0121, 23113, 67647, 17793, 05069 #### [facility] [address] [place] [address], [facility] MCV (RBC) [Entitic vol] 88.2 fL Normal 82.0-98.0 [facility] Comment on above: Order Comment: No: D o not add to previous draw Performed By: #### 0 0121, 64061, 34650, 05173, 24316 #### [facility] [address] [place] [address], [facility] Monocytes (Bld) [#/Vol] 1.7 10*3/uL High 0.1-1.0 [facility] Comment on above: Order Comment: No: D o not add to previous draw Performed By: #### 0 0121, 17828, 38224, 33679, 51169 #### [facility] [address] [place] [address], [place] MONOS 11.7 % Normal 5.0-12.0 [facility] Comment on above: Order Comment: No: D o not add to previous draw Performed By: #### 0 0121, 32556, 21847, 37568, 42210 #### [facility] [address] [place] [address], [facility] Neutrophils/100 WBC (Bld) 72.2 % High 40.0-72.0 [facility] Comment on above: Order Comment: No: D o not add to previous draw Performed By: #### 0 0121, 32824, 73755, 18040, 66721 #### [facility] [address] [place] [address], [place] Nucleated RBC/100 WBC (Bld) [Ratio] 0 % Normal 0-0 [facility] Comment on above: Order Comment: No: D o not add to previous draw Performed By: #### 0 0121, 25729, 42818, 03645, 60929 #### [facility] [address] [place] [address], [place] PLAT CNT 215 10*3/uL Normal 150-400 [facility] Comment on above: Order Comment: No: D o not add to previous draw Performed By: #### 0 0121, 79131, 14760, 10627, 84369 #### [facility] [address] [place] [address], [facility] RBC (Bld) [#/Vol] 3.91 10*6/uL Low 4.20-5.70 [facility] Comment on above: Order Comment: No: D o not add to previous draw Performed By: #### 0 0121, 89529, 37835, 44016, 06420 #### [facility] [address] [place] [address], [place] WBC (Bld) [#/Vol] 14.17 10*3/uL High 4.00-10.60 [facility] Comment on above: Order Comment: No: D o not add to previous draw Performed By: #### 0 0121, 45970, 30928, 48919, 71577 #### [facility] [address] [place] [address], [place] POC GLUCOSE LABon 03-26-2019 Glucose [Mass/Vol] 129 mg/dL High 70-100 [facility] Comment on above: Performed By: #### 0 0121, 22108, 65140, 65069, 44513 #### [facility] [address] [place] [address], [place] Glucose [Mass/Vol] 129 mg/dL High 70-100 [facility] Comment on above: Performed By: #### 0 0121, 11410, 60397, 15997, 11958 #### [facility] [address] [place] [address], [place] Glucose [Mass/Vol] 130 mg/dL High 70-100 [facility] Comment on above: Performed By: #### 0 0121, 86638, 26610, 55758, 77300 #### [facility] [address] [place] [address], [place] Glucose [Mass/Vol] 91 mg/dL Normal 70-100 [facility] Comment on above: Performed By: #### 0 0121, 10607, 44944, 02984, 11833 #### [facility] [address] [place] [address], [facility] PORTABLE CHEST 1 VIEWon 03-01 PORTABLE CHEST 1 VIEW [facility] Department of Radiology [address] [place] [phone] ===== Patient Name: TRACIE CRAIN : 1965 Sex: M Age: Race: NA Pt. Location: [id number] Patient Status: I Ordered Date: 03/26/2019 7:00:00 AM Completed Date: 03/26/2019 06:36 AM Requesting Provider: TMIBO BLACK Attending Provider: JIAN SYED Report Copy [...] findings. Electronically signed by:Divya Collins. Transcribed by: [email or web address], User Resident: KAREEM LIAO Electronically Signed by: DIVYA COLLINS @ 03/26/2019 10:03 AM I personally read this/these film(s) with this resident Normal [facility] Comment on above: Order Comment: No: D o not add to previous draw BASIC METABOLIC PANELon - Calcium [Mass/Vol] 9.1 mg/dL Normal 8.6-10.3 [facility] Comment on above: Order Comment: << On admission If not done in ED>> No: Do not add to previous draw Performed By: #### 0 0121, 45350, 61669, 58198, 59699 #### [facility] [address] [place] [address], [place] Chloride [Moles/Vol] 98 mmol/L Normal 98-107 [facility] Comment on above: Order Comment: << On admission If not done in ED>> No: Do not add to previous draw Performed By: #### 0 0121, 17363, 11728, 88669, 58176 #### [facility] [address] [place] [address], [place] CO2 [Moles/Vol] 29 mmol/L Normal 21-31 [facility] Comment on above: Order Comment: << On admission If not done in ED>> No: Do not add to previous draw Performed By: #### 0 0121, 58679, 80960, 72818, 48762 #### [facility] [address] [place] [address], [place] Creatinine [Mass/Vol] 1.01 mg/dL Normal 0.70-1.30 [facility] Comment on above: Order Comment: << On admission If not done in ED>> No: Do not add to previous draw Performed By: #### 0 0121, 92075, 37104, 07658, 34289 #### [facility] [address] [place] [address], [place] GFR/1.73 sq M predicted among blacks MDRD (S/P/Bld) [Vol rate/Area] mL/min/{1.73_m2} Normal >60 [facility] Comment on above: Order Comment: << On admission If not done in ED>> No: Do not add to previous draw Performed By: #### 0 0121, 89516, 65253, 11137, 27463 #### [facility] [address] [place] [address], [facility] GFR/1.73 sq M predicted among non-blacks MDRD (S/P/Bld) [Vol rate/Area] mL/min/{1.73_m2} Normal >60 [facility] Comment on above: Order Comment: << On admission If not done in ED>> No: Do not add to previous draw Performed By: #### 0 0121, 12473, 44848, 86111, 16225 #### [facility] [address] [place] [address], [facility] Glucose [Mass/Vol] 123 mg/dL High 70-100 [facility] Comment on above: Order Comment: << On admission If not done in ED>> No: Do not add to previous draw Performed By: #### 0 0121, 44852, 14558, 60270, 37250 #### [facility] [address] [place] [address], [facility] Potassium [Moles/Vol] 3.9 mmol/L Normal 3.5-5.1 [facility] Comment on above: Order Comment: << On admission If not done in ED>> No: Do not add to previous draw Performed By: #### 0 0121, 52075, 29444, 36825, 19459 #### [facility] [address] [place] [address], [facility] Sodium [Moles/Vol] 134 mmol/L Low 136-145 [facility] Comment on above: Order Comment: << On admission If not done in ED>> No: Do not add to previous draw Performed By: #### 0 0121, 76905, 31475, 44529, 05859 #### [facility] [address] [place] [address], [place] Urea nitrogen [Mass/Vol] 29 mg/dL High 7-25 [facility] Comment on above: Order Comment: << On admission If not done in ED>> No: Do not add to previous draw Performed By: #### 0 0121, 01560, 85022, 14537, 31356 #### [facility] [address] [facility] [place] [address], [facility] CBC W/DIFFon 03-25-2019 ABS BASOPHILS 0.1 10*3/uL Normal 0.0-0.2 [facility] Comment on above: Order Comment: << On admission If not done in ED>> No: Do not add to previous draw Performed By: #### 0 0121, 41892, 44820, 02353, 71421 #### [facility] [address] [facility] [place] [address], [facility] ABS NEUTROPHILS 11.2 10*3/uL High 1.6-7.6 [facility] Comment on above: Order Comment: << On admission If not done in ED>> No: Do not add to previous draw Performed By: #### 0 0121, 46979, 34101, 80292, 62452 #### [facility] [address] [facility] [place] [address], [facility] Basophils/100 WBC (Bld) 0.9 % Normal 0.0-1.0 [facility] Comment on above: Order Comment: << On admission If not done in ED>> No: Do not add to previous draw Performed By: #### 0 0121, 38964, 88972, 32720, 12787 #### [facility] [address] [facility] [place] [address], [facility] Eosinophils (Bld) [#/Vol] 0.1 10*3/uL Normal 0.0-0.5 [facility] Comment on above: Order Comment: << On admission If not done in ED>> No: Do not add to previous draw Performed By: #### 0 0121, 18656, 53366, 78542, 66464 #### [facility] [address] [facility] [place] [address], [facility] Eosinophils/100 WBC (Bld) 0.9 % Normal 0.0-6.0 [facility] Comment on above: Order Comment: << On admission If not done in ED>> No: Do not add to previous draw Performed By: #### 0 0121, 62403, 09416, 49166, 34806 #### [facility] [address] Erythrocyte distribution width (RBC) [Ratio] 13.4 % Normal 11.5-15.0 [facility] Comment on above: Order Comment: << On admission If not done in ED>> No: Do not add to previous draw Performed By: #### 0 0121, 38866, 66102, 75079, 06137 #### [facility] [address] GIANT PLATELETS Present Normal [facility] Comment on above: Order Comment: << On admission If not done in ED>> No: Do not add to previous draw Performed By: #### 0 0121, 10367, 01021, 95084, 68514 #### [facility] [address] [facility] [address] Hematocrit (Bld) [Volume fraction] 35.4 % Low 39.0-50.0 [facility] Comment on above: Order Comment: << On admission If not done in ED>> No: Do not add to previous draw Performed By: #### 0 0121, 55193, 96231, 76820, 84867 #### [facility] [address] [facility] [address] Hemoglobin (Bld) [Mass/Vol] 11.1 g/dL Low 13.0-17.0 [facility] Comment on above: Order Comment: << On admission If not done in ED>> No: Do not add to previous draw Performed By: #### 0 0121, 76819, 33793, 65378, 27415 #### [facility] [address] [place] [address], [facility] Lymphocytes (Bld) [#/Vol] 0.8 10*3/uL Low 1.2-4.0 [facility] Comment on above: Order Comment: << On admission If not done in ED>> No: Do not add to previous draw Performed By: #### 0 0121, 58032, 42255, 10163, 32724 #### [facility] [address] [place] [address], [facility] Lymphocytes/100 WBC (Bld) 6.3 % Low 20.0-45.0 [facility] Comment on above: Order Comment: << On admission If not done in ED>> No: Do not add to previous draw Performed By: #### 0 0121, 75933, 21419, 33764, 98156 #### [facility] [address] [place] [address], [facility] MCH (RBC) [Entitic mass] 28.8 pg Normal 27.0-33.0 [facility] Comment on above: Order Comment: << On admission If not done in ED>> No: Do not add to previous draw Performed By: #### 0 0121, 16001, 61772, 85046, 29406 #### [facility] [address] [place] [address], [facility] MCHC (RBC) [Mass/Vol] 31.4 g/dL Low 32.0-35.0 [facility] Comment on above: Order Comment: << On admission If not done in ED>> No: Do not add to previous draw Performed By: #### 0 0121, 15336, 53677, 61319, 68122 #### [facility] [address] [place] [address], [facility] MCV (RBC) [Entitic vol] 91.9 fL Normal 82.0-98.0 [facility] Comment on above: Order Comment: << On admission If not done in ED>> No: Do not add to previous draw Performed By: #### 0 0121, 13808, 87163, 13979, 04651 #### [facility] [address] [place] [address], [facility] Monocytes (Bld) [#/Vol] 0.7 10*3/uL Normal 0.1-1.0 [facility] Comment on above: Order Comment: << On admission If not done in ED>> No: Do not add to previous draw Performed By: #### 0 0121, 65993, 00942, 56748, 35080 #### [facility] [address] [place] [address], [facility] MONOS 5.4 % Normal 5.0-12.0 [facility] Comment on above: Order Comment: << On admission If not done in ED>> No: Do not add to previous draw Performed By: #### 0 0121, 93144, 42977, 00096, 15011 #### [facility] [address] [place] [address], [facility] MYELOS 0.9 % High .0-.0 [facility] Comment on above: Order Comment: << On admission If not done in ED>> No: Do not add to previous draw Performed By: #### 0 0121, 54631, 23337, 10567, 23548 #### [facility] [address] [place] [address], [facility] Neutrophils/100 WBC (Bld) 85.6 % High 40.0-72.0 [facility] Comment on above: Order Comment: << On admission If not done in ED>> No: Do not add to previous draw Performed By: #### 0 0121, 69626, 88297, 44843, 52737 #### [facility] [address] [place] [address], [facility] Nucleated RBC/100 WBC (Bld) [Ratio] 0 % Normal 0-0 [facility] Comment on above: Order Comment: << On admission If not done in ED>> No: Do not add to previous draw Performed By: #### 0 0121, 54044, 64948, 84575, 89349 #### [facility] [address] [place] [address], [facility] PLAT CNT 196 10*3/uL Normal 150-400 [facility] Comment on above: Order Comment: << On admission If not done in ED>> No: Do not add to previous draw Performed By: #### 0 0121, 78629, 48741, 52979, 05343 #### [facility] [address] [place] [address], [facility] RBC (Bld) [#/Vol] 3.85 10*6/uL Low 4.20-5.70 [facility] Comment on above: Order Comment: << On admission If not done in ED>> No: Do not add to previous draw Performed By: #### 0 0121, 32016, 65844, 76414, 51784 #### [facility] [address] [place] [address], [facility] WBC (Bld) [#/Vol] 13.09 10*3/uL High 4.00-10.60 [facility] Comment on above: Order Comment: << On admission If not done in ED>> No: Do not add to previous draw Performed By: #### 0 0121, 51235, 97617, 05965, 20255 #### [facility] [address] MAGNESIUM BLOODon 03-25-2019 Magnesium [Mass/Vol] 2.3 mg/dL Normal 1.9-2.7 [facility] Comment on above: Order Comment: << On admission If not done in ED>> No: Do not add to previous draw Performed By: #### 0 0121, 42495, 01919, 42427, 96221 #### [facility] [address] [place] [address], [facility] PHOSPHORUS BLOODon 9 Phosphate [Mass/Vol] 2.6 mg/dL Normal 2.5-5.0 [facility] Comment on above: Order Comment: << On admission If not done in ED>> No: Do not add to previous draw Performed By: #### 0 0121, 11852, 03743, 62022, 66105 #### [facility] [address] [place] [address], [place] POC GLUCOSE LABon 03-25-2019 Glucose [Mass/Vol] 103 mg/dL High 70-100 [facility] Comment on above: Performed By: #### 0 0121, 90663, 01375, 64871, 67520 #### [facility] [address] [place] [address], [place] Glucose [Mass/Vol] 113 mg/dL High 70-100 [facility] Comment on above: Performed By: #### 0 0121, 38644, 44255, 89213, 86849 #### [facility] [address] [place] [address], [place] Glucose [Mass/Vol] 120 mg/dL High 70-100 [facility] Comment on above: Performed By: #### 0 0121, 38606, 06546, 77056, 40868 #### [facility] [address] [place] [address], [place] Glucose [Mass/Vol] 110 mg/dL High 70-100 [facility] Comment on above: Performed By: #### 0 0121, 17122, 83067, 00728, 52294 #### [facility] [address] [facility] [place] [address], [facility] PORTABLE CHEST 1 VIEWon 03-01 PORTABLE CHEST 1 VIEW [facility] Department of Radiology [address] [place] [address] ===== Patient Name: TRACIE CRAIN : 1965 Sex: M Age: Race: NA Pt. Location: [id number] Patient Status: I Ordered Date: 03/25/2019 7:00:00 [...] findings. Electronically signed by:Divya Collins. Transcribed by: [email or web address], User Resident: KAREEM LIAO Electronically Signed by: DIVYA COLLINS @ 03/25/2019 11:10 AM I personally read this/these film(s) with this resident Normal [facility] Comment on above: Order Comment: No: D o not add to previous draw BASIC METABOLIC PANELon 03-01 Calcium [Mass/Vol] 9.0 mg/dL Normal 8.6-10.3 [facility] Comment on above: Order Comment: << On admission If not done in ED>> No: Do not add to previous draw Performed By: #### 0 0121, 43363, 42519, 71974, 29706 #### [facility] [address] [place] [address], [facility] Chloride [Moles/Vol] 96 mmol/L Low 98-107 [facility] Comment on above: Order Comment: << On admission If not done in ED>> No: Do not add to previous draw Performed By: #### 0 0121, 01341, 84703, 88679, 63788 #### [facility] [address] [place] [address], [facility] CO2 [Moles/Vol] 30 mmol/L Normal 21-31 [facility] Comment on above: Order Comment: << On admission If not done in ED>> No: Do not add to previous draw Performed By: #### 0 0121, 56230, 82271, 53706, 10928 #### [facility] [address] [place] [address], [facility] Creatinine [Mass/Vol] 0.89 mg/dL Normal 0.70-1.30 [facility] Comment on above: Order Comment: << On admission If not done in ED>> No: Do not add to previous draw Performed By: #### 0 0121, 96777, 24459, 25750, 60234 #### [facility] [address] [place] [address], [place] GFR/1.73 sq M predicted among blacks MDRD (S/P/Bld) [Vol rate/Area] mL/min/{1.73_m2} Normal >60 [facility] Comment on above: Order Comment: << On admission If not done in ED>> No: Do not add to previous draw Performed By: #### 0 0121, 06364, 59411, 84822, 67841 #### [facility] [address] [place] [address], [facility] GFR/1.73 sq M predicted among non-blacks MDRD (S/P/Bld) [Vol rate/Area] mL/min/{1.73_m2} Normal >60 [facility] Comment on above: Order Comment: << On admission If not done in ED>> No: Do not add to previous draw Performed By: #### 0 0121, 64821, 33460, 56126, 81129 #### [facility] [address] [place] [address], [facility] Glucose [Mass/Vol] 98 mg/dL Normal 70-100 [facility] Comment on above: Order Comment: << On admission If not done in ED>> No: Do not add to previous draw Performed By: #### 0 0121, 17260, 89189, 40970, 14740 #### [facility] [address] [place] [address], [facility] Potassium [Moles/Vol] 3.2 mmol/L Low 3.5-5.1 [facility] Comment on above: Order Comment: << On admission If not done in ED>> No: Do not add to previous draw Performed By: #### 0 0121, 49721, 83016, 51620, 35551 #### [facility] [address] [place] [address], [place] Sodium [Moles/Vol] 135 mmol/L Low 136-145 [facility] Comment on above: Order Comment: << On admission If not done in ED>> No: Do not add to previous draw Performed By: #### 0 0121, 46572, 61257, 89506, 23544 #### [facility] [address] [place] [address], [place] Urea nitrogen [Mass/Vol] 29 mg/dL High 7-25 [facility] Comment on above: Order Comment: << On admission If not done in ED>> No: Do not add to previous draw Performed By: #### 0 0121, 12629, 99327, 51659, 10834 #### [facility] [address] [place] [address], [facility] CBC W/DIFFon 03-24-2019 ABS BASOPHILS 0.1 10*3/uL Normal 0.0-0.2 [facility] Comment on above: Order Comment: << On admission If not done in ED>> No: Do not add to previous draw Performed By: #### 0 0121, 53119, 23750, 49688, 04584 #### [facility] [address] ABS IMM GRANS 0.1 10*3/uL Normal 0.0-0.2 [facility] Comment on above: Order Comment: << On admission If not done in ED>> No: Do not add to previous draw Performed By: #### 0 0121, 90701, 13025, 87067, 25530 #### [facility] [address] ABS NEUTROPHILS 6.9 10*3/uL Normal 1.6-7.6 [facility] Comment on above: Order Comment: << On admission If not done in ED>> No: Do not add to previous draw Performed By: #### 0 0121, 43595, 21437, 47001, 09103 #### [facility] [address] Basophils/100 WBC (Bld) 0.8 % Normal 0.0-1.0 [facility] Comment on above: Order Comment: << On admission If not done in ED>> No: Do not add to previous draw Performed By: #### 0 0121, 74878, 97533, 54198, 65355 #### [facility] [address] Eosinophils (Bld) [#/Vol] 0.3 10*3/uL Normal 0.0-0.5 [facility] Comment on above: Order Comment: << On admission If not done in ED>> No: Do not add to previous draw Performed By: #### 0 0121, 00352, 38292, 63753, 72406 #### [facility] [address] [place] [address], [facility] Eosinophils/100 WBC (Bld) 2.8 % Normal 0.0-6.0 [facility] Comment on above: Order Comment: << On admission If not done in ED>> No: Do not add to previous draw Performed By: #### 0 0121, 72990, 58819, 44285, 09469 #### [facility] [address] Erythrocyte distribution width (RBC) [Ratio] 13.5 % Normal 11.5-15.0 [facility] Comment on above: Order Comment: << On admission If not done in ED>> No: Do not add to previous draw Performed By: #### 0 0121, 93328, 05126, 20965, 61539 #### [facility] [address] Hematocrit (Bld) [Volume fraction] 33.0 % Low 39.0-50.0 [facility] Comment on above: Order Comment: << On admission If not done in ED>> No: Do not add to previous draw Performed By: #### 0 0121, 91680, 44431, 94330, 36342 #### [facility] [address] Hemoglobin (Bld) [Mass/Vol] 10.4 g/dL Low 13.0-17.0 [facility] Comment on above: Order Comment: << On admission If not done in ED>> No: Do not add to previous draw Performed By: #### 0 0121, 17667, 19498, 23471, 74803 #### [facility] [address] [place] [address], [facility] IMMATURE GRANS 1.2 % High 0.0-1.0 [facility] Comment on above: Order Comment: << On admission If not done in ED>> No: Do not add to previous draw Performed By: #### 0 0121, 98341, 44844, 38631, 97098 #### [facility] [address] [place] [address], [facility] Lymphocytes (Bld) [#/Vol] 1.5 10*3/uL Normal 1.2-4.0 [facility] Comment on above: Order Comment: << On admission If not done in ED>> No: Do not add to previous draw Performed By: #### 0 0121, 56380, 96711, 28781, 51240 #### [facility] [address] [place] [address], [facility] Lymphocytes/100 WBC (Bld) 14.4 % Low 20.0-45.0 [facility] Comment on above: Order Comment: << On admission If not done in ED>> No: Do not add to previous draw Performed By: #### 0 0121, 96518, 23140, 49657, 38842 #### [facility] [address] [facility] [place] [address], [facility] MCH (RBC) [Entitic mass] 28.8 pg Normal 27.0-33.0 [facility] Comment on above: Order Comment: << On admission If not done in ED>> No: Do not add to previous draw Performed By: #### 0 0121, 38579, 90254, 90584, 99185 #### [facility] [address] [place] [address], [facility] MCHC (RBC) [Mass/Vol] 31.5 g/dL Low 32.0-35.0 [facility] Comment on above: Order Comment: << On admission If not done in ED>> No: Do not add to previous draw Performed By: #### 0 0121, 65331, 72096, 52909, 55327 #### [facility] [address] MCV (RBC) [Entitic vol] 91.4 fL Normal 82.0-98.0 [facility] Comment on above: Order Comment: << On admission If not done in ED>> No: Do not add to previous draw Performed By: #### 0 0121, 21136, 46951, 54177, 00595 #### [facility] [address] [place] [address], [facility] Monocytes (Bld) [#/Vol] 1.3 10*3/uL High 0.1-1.0 [facility] Comment on above: Order Comment: << On admission If not done in ED>> No: Do not add to previous draw Performed By: #### 0 0121, 84223, 59192, 69396, 13303 #### [facility] [address] MONOS 13.1 % High 5.0-12.0 [facility] Comment on above: Order Comment: << On admission If not done in ED>> No: Do not add to previous draw Performed By: #### 0 0121, 46397, 88118, 70764, 94899 #### [facility] [address] [place] [address], [facility] Neutrophils/100 WBC (Bld) 67.7 % Normal 40.0-72.0 [facility] Comment on above: Order Comment: << On admission If not done in ED>> No: Do not add to previous draw Performed By: #### 0 0121, 12261, 14568, 78327, 38808 #### [facility] [address] [place] [address], [facility] Nucleated RBC/100 WBC (Bld) [Ratio] 0 % Normal 0-0 [facility] Comment on above: Order Comment: << On admission If not done in ED>> No: Do not add to previous draw Performed By: #### 0 0121, 65979, 61421, 61896, 63547 #### [facility] [address] [facility] [place] [address], [facility] PLAT CNT 166 10*3/uL Normal 150-400 [facility] Comment on above: Order Comment: << On admission If not done in ED>> No: Do not add to previous draw Performed By: #### 0 0121, 93373, 22396, 52659, 07847 #### [facility] [address] [place] [address], [facility] RBC (Bld) [#/Vol] 3.61 10*6/uL Low 4.20-5.70 [facility] Comment on above: Order Comment: << On admission If not done in ED>> No: Do not add to previous draw Performed By: #### 0 0121, 15951, 61373, 83338, 38098 #### [facility] [address] WBC (Bld) [#/Vol] 10.21 10*3/uL Normal 4.00-10.60 [facility] Comment on above: Order Comment: << On admission If not done in ED>> No: Do not add to previous draw Performed By: #### 0 0121, 07977, 33325, 14075, 17331 #### [facility] [address] MAGNESIUM BLOODon 03-24-2019 Magnesium [Mass/Vol] 2.4 mg/dL Normal 1.9-2.7 [facility] Comment on above: Order Comment: << On admission If not done in ED>> No: Do not add to previous draw Performed By: #### 0 0121, 47045, 47549, 36662, 59356 #### [facility] [address] [place] [address], [facility] PHOSPHORUS BLOODon 9 Phosphate [Mass/Vol] 2.9 mg/dL Normal 2.5-5.0 [facility] Comment on above: Order Comment: << On admission If not done in ED>> No: Do not add to previous draw Performed By: #### 0 0121, 27778, 75179, 50321, 61495 #### [facility] [address] [place] [address], [facility] POC GLUCOSE LABon 03-24-2019 Glucose [Mass/Vol] 107 mg/dL High 70-100 [facility] Comment on above: Performed By: #### 0 0121, 97401, 21995, 40732, 72892 #### [facility] [address] [place] [address], [facility] PORTABLE CHEST 1 VIEWon 03-01 PORTABLE CHEST 1 VIEW [facility] of Radiology [address] [place] [id number] ===== Patient Name: TRACIE CRAIN : 1965 Sex: M Age: Race: NA Pt. Location: [id number] Patient Status: I Ordered Date: 03/24/2019 4:00:00 [...] recommended. Electronically signed by:Scottie Fall. Transcribed by: [email or web address], User Resident: Electronically Signed by: SCOTTIE FALL @ 03/24/2019 10:43 AM Normal [facility] Comment on above: Order Comment: << On admission If not done in ED>> No: Do not add to previous draw POC GLUCOSE LABon 03-23-2019 Glucose [Mass/Vol] 150 mg/dL High 70-100 [facility] Comment on above: Performed By: #### 0 0121, 60449, 41071, 32851, 16870 #### [facility] [address] [facility] [place] [address], [place] Glucose [Mass/Vol] 110 mg/dL High 70-100 [facility] Comment on above: Performed By: #### 0 0121, 83376, 49350, 67302, 29512 #### [facility] [address] [place] [address], [place] Glucose [Mass/Vol] 112 mg/dL High 70-100 [facility] Comment on above: Performed By: #### 0 0121, 17702, 36320, 44208, 13049 #### [facility] [address] [place] [address], [place] Glucose [Mass/Vol] 93 mg/dL Normal 70-100 [facility] Comment on above: Performed By: #### 0 0121, 42673, 13774, 21141, 67429 #### [facility] [address] [place] [address], [place] ARTERIAL BLOOD GAS WITH ICAo n 03-22-2019 BASE EXCESS 4 mmol/L High -2-3 [facility] Comment on above: Performed By: #### 0 0121, 91650, 48313, 06206, 86780 #### [facility] [address] [place] [address], [place] [employer] NASAL CANNULA Normal [facility] Comment on above: Performed By: #### 0 0121, 21147, 86987, 71070, 73920 #### [facility] [address] [place] [address], [place] HCO3 (Bld) [Moles/Vol] 27 mmol/L Normal 21-28 [facility] Comment on above: Performed By: #### 0 0121, 30172, 29766, 85556, 86045 #### [facility] [address] [place] [address], [place] IONIZED CALCIUM 1.14 mmol/L Normal 1.13-1.32 [facility] Comment on above: Performed By: #### 0 0121, 90489, 31221, 15881, 18106 #### [facility] [address] [place] [address], [place] LPM 6.0 LPM Normal [facility] Comment on above: Performed By: #### 0 0121, 91323, 94009, 29521, 89639 #### [facility] [address] [place] [address], [place] Oxygen (Bld) [Partial pressure] 70 mm[Hg] Low 83-108 [facility] Comment on above: Performed By: #### 0 0121, 65886, 64367, 34460, 96337 #### [facility] [address] [place] [address], [place] Oxygen saturation in Blood 93.0 % Low 94.0-97.0 [facility] Comment on above: Performed By: #### 0 0121, 56107, 89755, 58577, 10266 #### [facility] [address] [place] [address], [place] PCO2 35 mmHg Normal 35-45 [facility] Comment on above: Performed By: #### 0 0121, 22020, 63106, 73456, 23778 #### [facility] [address] [place] [address], [place] pH (Bld) 7.50 [pH] High 7.35-7.45 [facility] Comment on above: Result Comment: KINJAL REYNOSO NOTE: Effective 12/02/18, reference ranges for Respiratory GEM analyzers running arterial blood have been updated to reflect the cocktail lounge manager's published reference ranges. Performed By: #### 0 0121, 77680, 69103, 75986, 20499 #### [facility] [address] [place] [address], [facility] BASIC METABOLIC PANELon 06-2 Calcium [Mass/Vol] 8.9 mg/dL Normal 8.6-10.3 [facility] Comment on above: Order Comment: << On admission If not done in ED>> No: Do not add to previous draw Performed By: #### 0 0121, 74277, 46062, 45480, 81811 #### [facility] [address] [place] [address], [place] Chloride [Moles/Vol] 101 mmol/L Normal 98-107 [facility] Comment on above: Order Comment: << On admission If not done in ED>> No: Do not add to previous draw Performed By: #### 0 0121, 63854, 78794, 74821, 42804 #### [facility] [address] [place] [address], [place] CO2 [Moles/Vol] 28 mmol/L Normal 21-31 [facility] Comment on above: Order Comment: << On admission If not done in ED>> No: Do not add to previous draw Performed By: #### 0 0121, 63771, 61797, 52248, 13531 #### [facility] [address] [place] [address], [facility] Creatinine [Mass/Vol] 1.29 mg/dL Normal 0.70-1.30 [facility] Comment on above: Order Comment: << On admission If not done in ED>> No: Do not add to previous draw Performed By: #### 0 0121, 41375, 64395, 60195, 88589 #### [facility] [address] [place] [address], [facility] GFR/1.73 sq M predicted among blacks MDRD (S/P/Bld) [Vol rate/Area] mL/min/{1.73_m2} Normal >60 [facility] Comment on above: Order Comment: << On admission If not done in ED>> No: Do not add to previous draw Performed By: #### 0 0121, 63812, 77185, 34515, 80565 #### [facility] [address] [place] [address], [facility] GFR/1.73 sq M predicted among non-blacks MDRD (S/P/Bld) [Vol rate/Area] 58 ml/min/1.73sq m Abnormal >60 [facility] Comment on above: Order Comment: << On admission If not done in ED>> No: Do not add to previous draw Performed By: #### 0 0121, 37491, 83446, 95235, 62896 #### [facility] [address] [place] [address], [place] Glucose [Mass/Vol] 111 mg/dL High 70-100 [facility] Comment on above: Order Comment: << On admission If not done in ED>> No: Do not add to previous draw Performed By: #### 0 0121, 94556, 41687, 77448, 09987 #### [facility] [address] [place] [address], [facility] Sodium [Moles/Vol] 139 mmol/L Normal 136-145 [facility] Comment on above: Order Comment: << On admission If not done in ED>> No: Do not add to previous draw Performed By: #### 0 0121, 15820, 61317, 37789, 76979 #### [facility] [address] [place] [address], [facility] Urea nitrogen [Mass/Vol] 23 mg/dL Normal 7-25 [facility] Comment on above: Order Comment: << On admission If not done in ED>> No: Do not add to previous draw Performed By: #### 0 0121, 19498, 81546, 50087, 52243 #### [facility] [address] [place], [place] [address] [place] [address] CBC COMPLETE BLOOD COUNTon 03-22-2019 Erythrocyte distribution width (RBC) [Ratio] 13.4 % Normal 11.5-15.0 [facility] Comment on above: Order Comment: << On admission If not done in ED>> No: Do not add to previous draw Performed By: #### 0 0121, 14044, 32633, 03239, 39704 #### [facility] [address] [place] [address], [facility] Hematocrit (Bld) [Volume fraction] 31.2 % Low 39.0-50.0 [facility] Comment on above: Order Comment: << On admission If not done in ED>> No: Do not add to previous draw Performed By: #### 0 0121, 46128, 76945, 79179, 41697 #### [facility] [address] [place] [address], [facility] Hemoglobin (Bld) [Mass/Vol] 10.3 g/dL Low 13.0-17.0 [facility] Comment on above: Order Comment: << On admission If not done in ED>> No: Do not add to previous draw Performed By: #### 0 0121, 59511, 91808, 12527, 64029 #### [facility] [address] [place] [address], [facility] MCH (RBC) [Entitic mass] 28.9 pg Normal 27.0-33.0 [facility] Comment on above: Order Comment: << On admission If not done in ED>> No: Do not add to previous draw Performed By: #### 0 0121, 44057, 26984, 88675, 99733 #### [facility] [address] MCHC (RBC) [Mass/Vol] 33.0 g/dL Normal 32.0-35.0 [facility] Comment on above: Order Comment: << On admission If not done in ED>> No: Do not add to previous draw Performed By: #### 0 0121, 32849, 25206, 30452, 13894 #### [facility] [address] MCV (RBC) [Entitic vol] 87.4 fL Normal 82.0-98.0 [facility] Comment on above: Order Comment: << On admission If not done in ED>> No: Do not add to previous draw Performed By: #### 0 0121, 79402, 25281, 79049, 08000 #### [facility] [address] Nucleated RBC/100 WBC (Bld) [Ratio] 0 % Normal 0-0 [facility] Comment on above: Order Comment: << On admission If not done in ED>> No: Do not add to previous draw Performed By: #### 0 0121, 03724, 68116, 57264, 37719 #### [facility] [address] [place] [address], [facility] PLAT CNT 88 10*3/uL Low 150-400 [facility] Comment on above: Order Comment: << On admission If not done in ED>> No: Do not add to previous draw Performed By: #### 0 0121, 91020, 44088, 95740, 06024 #### [facility] [address] [place] [address], [facility] RBC (Bld) [#/Vol] 3.57 10*6/uL Low 4.20-5.70 [facility] Comment on above: Order Comment: << On admission If not done in ED>> No: Do not add to previous draw Performed By: #### 0 0121, 76345, 42521, 43709, 25624 #### [facility] [address] [place] [address], [facility] WBC (Bld) [#/Vol] 13.95 10*3/uL High 4.00-10.60 [facility] Comment on above: Order Comment: << On admission If not done in ED>> No: Do not add to previous draw Performed By: #### 0 0121, 27665, 17674, 60370, 79516 #### [facility] [address] [place] [address], [facility] COOXIMETRYon 03-22-2019 COHB 2 % Normal [facility] Comment on above: Performed By: #### 0 0121, 20009, 08983, 36093, 28171 #### [facility] [address] [place] [address], [facility] METHB 1 % Normal [facility] Comment on above: Performed By: #### 0 0121, 34322, 73750, 06404, 87579 #### [facility] [address] [place] [address], [place] Oxygen saturation in Blood 56.5 % Low 65.0-75.0 [facility] Comment on above: Performed By: #### 0 0121, 43194, 71582, 71100, 72867 #### [facility] [address] [place] [address], [facility] THB 9.9 g/dL Normal [facility] Comment on above: Performed By: #### 0 0121, 98114, 45650, 51061, 28222 #### [facility] [address] [place] [address], [facility] MAGNESIUM BLOODon 03-22-2019 Magnesium [Mass/Vol] 2.0 mg/dL Normal 1.9-2.7 [facility] Comment on above: Order Comment: << On admission If not done in ED>> No: Do not add to previous draw Performed By: #### 0 0121, 65122, 78979, 35758, 25259 #### [facility] [address] [place] [address], [facility] Magnesium [Mass/Vol] 1.9 mg/dL Normal 1.9-2.7 [facility] Comment on above: Order Comment: << On admission If not done in ED>> No: Do not add to previous draw Performed By: #### 0 0121, 56104, 90033, 78819, 58486 #### [facility] [address] [place] [address], [facility] PHOSPHORUS BLOODon 9 Phosphate [Mass/Vol] 3.6 mg/dL Normal 2.5-5.0 [facility] Comment on above: Order Comment: << On admission If not done in ED>> No: Do not add to previous draw Performed By: #### 0 0121, 49438, 25436, 22922, 92020 #### [facility] [address] [place] [address], [facility] POC GLUCOSE LABon 03-22-2019 Glucose [Mass/Vol] 111 mg/dL High 70-100 [facility] Comment on above: Performed By: #### 0 0121, 44044, 11227, 37307, 58814 #### [facility] [address] [place] [address], [place] Glucose [Mass/Vol] 108 mg/dL High 70-100 [facility] Comment on above: Performed By: #### 0 0121, 29534, 35293, 79119, 93461 #### [facility] [address] [place] [address], [place] Glucose [Mass/Vol] 109 mg/dL High 70-100 [facility] Comment on above: Performed By: #### 0 0121, 15212, 19247, 31423, 78406 #### [facility] [address] [place] [address], [place] Glucose [Mass/Vol] 99 mg/dL Normal 70-100 [facility] Comment on above: Performed By: #### 0 0121, 90077, 18799, 77674, 34153 #### [facility] [address] [place] [address], [place] Glucose [Mass/Vol] 91 mg/dL Normal 70-100 [facility] Comment on above: Performed By: #### 0 0121, 82037, 37580, 77672, 36841 #### [facility] [address] [facility] [place] [address], [facility] PORTABLE CHEST 1 VIEWon 03-01 PORTABLE CHEST 1 VIEW [facility] Department of Radiology [address] [place] [id number] ===== Patient Name: TRACIE CRAIN : 1965 Sex: M Age: Race: NA Pt. Location: [id number] Patient Status: I Ordered Date: 03/22/2019 5:00:00 [...] removal of endotracheal and enteric tubes. Right-sided [place]-Sher catheter is again seen with tip overlying [...] Small left pleural effusion, unchanged. 3. Right-sided [place]-Sher catheter with tip projecting over the pulmonary trunk, unchanged. 4. Redemonstration of 2 chest tubes on the right, unchanged. Approved by:Cynthia Finley on 03/22/2019 8:06 AM EDT. I, Yenni Osuna, have reviewed the images and report and concur with these findings. Electronically signed by:Yenni Osuna. Transcribed by: [email or web address], User Resident: CYNTHIA FINLEY Electronically Signed by: YENNI OSUNA @ 03/22/2019 01:07 PM I personally read this/these film(s) with this resident Normal [facility] Comment on above: Order Comment: << On admission If not done in ED>> No: Do not add to previous draw POTASSIUM BLOODon 03-22-2019 Potassium [Moles/Vol] 3.1 mmol/L Low 3.5-5.1 [facility] Comment on above: Order Comment: << On admission If not done in ED>> No: Do not add to previous draw Performed By: #### 0 0121, 20275, 15233, 34156, 35999 #### [facility] [address] [facility] PROTHROMBIN TIMEon 9 INR Coag (PPP) [Relative time] 1.37 {INR} High 0.91-1.16 [facility] Comment on above: Order Comment: << [...] CHEST 1995;[id number]. Performed By: #### 0 0121, 51915, 58025, 40701, 25748 #### [facility] [address] [facility]. [address] PT Coag (PPP) [Time] 16.9 s High 12.3-14.8 [facility] Comment on above: Order Comment: << On admission If not done in ED>> No: Do not add to previous draw Result Comment: ALL RESULTS MUST BE INTERPRETED WITH RESPECT TO BLOOD DRAWING ARTIFACT OR DILUTION ERROR OF ANTICOAGULANT AT THE TIME OF SAMPLING. Performed By: #### 0 0121, 86729, 88623, 58089, 71577 #### [facility] [address] [place] [address], [facility] ARTERIAL BLOOD GAS W/COOXon 03-21-2019 BASE EXCESS 1 mmol/L Normal -2-3 [facility] Comment on above: Performed By: #### 0 0121, 94599, 66469, 27321, 92658 #### [facility] [address] [place] [address], [facility] COHB 1.4 % Normal 0.0-1.5 [facility] Comment on above: Performed By: #### 0 0121, 86118, 97500, 59725, 04048 #### [facility] [address] [facility] [place] [address], [facility] FIO2 40 % Normal [facility] Comment on above: Performed By: #### 0 0121, 26839, 89472, 06242, 92931 #### [facility] [address] [facility] [place] [address], [facility] HCO3 (Bld) [Moles/Vol] 24 mmol/L Normal 21-28 [facility] Comment on above: Performed By: #### 0 0121, 42222, 93591, 08176, 24271 #### [facility] [address] [facility] [place] [address], [facility] METHB 1.1 % Normal 0.0-1.5 [facility] Comment on above: Performed By: #### 0 0121, 53581, 46463, 72869, 14914 #### [facility] [address] [place] [address], [facility] MIN VOLUME 13.1 Normal [facility] Comment on above: Performed By: #### 0 0121, 55156, 46660, 35074, 23223 #### [facility] [address] [place] [address], [place] MODALITY Positive Normal [facility] Comment on above: Performed By: #### 0 0121, 05377, 52928, 03598, 04566 #### [facility] [address] [place] [address], [place] Oxygen (Bld) [Partial pressure] 86 mm[Hg] Normal 83-108 [facility] Comment on above: Performed By: #### 0 0121, 11551, 23001, 85975, 82031 #### [facility] [address] [place] [address], [place] Oxygen saturation in Blood 94.8 % Normal 94.0-97.0 [facility] Comment on above: Performed By: #### 0 0121, 41728, 37820, 92376, 24617 #### [facility] [address] [place] [address], [place] PCO2 32 mmHg Low 35-45 [facility] Comment on above: Performed By: #### 0 0121, 79247, 02734, 64719, 52627 #### [facility] [address] [place] [address], [place] PEEP 8.0 CMH20 Normal [facility] Comment on above: Performed By: #### 0 0121, 22774, 66657, 29624, 32832 #### [facility] [address] [place] [address], [place] pH (Bld) 7.49 [pH] High 7.35-7.45 [facility] Comment on above: Result Comment: KINJAL REYNOSO NOTE: Effective 12/02/18, reference ranges for Respiratory GEM analyzers running arterial blood have been updated to reflect the cocktail lounge manager's published reference ranges. Performed By: #### 0 0121, 35411, 20324, 63372, 67258 #### [facility] [address] [place] [address], [facility] PRESSURE SUPPORT 5 Normal [facility] Comment on above: Performed By: #### 0 0121, 22137, 71286, 29227, 92666 #### [facility] [address] [place] [address], [facility] THB 10.3 g/dL Low 12.0-16.3 [facility] Comment on above: Performed By: #### 0 0121, 32659, 08457, 78971, 09747 #### [facility] [address] [place] [address], [facility] ARTERIAL BLOOD GAS WITH ICAo n 03-21-2019 BASE EXCESS 4 mmol/L High -2-3 [facility] Comment on above: Performed By: #### 0 0121, 30342, 18451, 53987, 88213 #### [facility] [address] [place] [address], [facility] [employer] [place] Normal [facility] Comment on above: Performed By: #### 0 0121, 58068, 79057, 25725, 69446 #### [facility] [address] [place] [address], [facility] HCO3 (Bld) [Moles/Vol] 27 mmol/L Normal 21-28 [facility] Comment on above: Performed By: #### 0 0121, 24306, 58668, 75640, 13676 #### [facility] [address] [place] [address], [facility] IONIZED CALCIUM 1.17 mmol/L Normal 1.13-1.32 [facility] Comment on above: Performed By: #### 0 0121, 62834, 82328, 72258, 80106 #### [facility] [address] [place] [address], [facility] LPM 6.0 LPM Normal [facility] Comment on above: Performed By: #### 0 0121, 18508, 98314, 27991, 45357 #### [facility] [address] [place] [address], [place] Oxygen (Bld) [Partial pressure] 67 mm[Hg] Low 83-108 [facility] Comment on above: Performed By: #### 0 0121, 31806, 85848, 24820, 68471 #### [facility] [address] [place] [address], [place] Oxygen saturation in Blood 92.7 % Low 94.0-97.0 [facility] Comment on above: Performed By: #### 0 0121, 48898, 78866, 32588, 48317 #### [facility] [address] [place] [address], [facility] PCO2 36 mmHg Normal 35-45 [facility] Comment on above: Performed By: #### 0 0121, 65380, 04355, 19966, 64215 #### [facility] [address] [place] [address], [place] pH (Bld) 7.49 [pH] High 7.35-7.45 [facility] Comment on above: Result Comment: KINJAL REYNOSO NOTE: Effective 12/02/18, reference ranges for Respiratory GEM analyzers running arterial blood have been updated to reflect the cocktail lounge manager's published reference ranges. Performed By: #### 0 0121, 99114, 99302, 60514, 39286 #### [facility] [address] [place] [address], [place] BASE EXCESS 1 mmol/L Normal -2-3 [facility] Comment on above: Performed By: #### 0 0121, 30783, 09396, 08345, 21576 #### [facility] [address] [place] [address], [place] [employer] SYSTEM[employer] VENTILATOR Normal [facility] Comment on above: Performed By: #### 0 0121, 30172, 65686, 76749, 12983 #### [facility] [address] [place] [address], [facility] FIO2 40 % Normal [facility] Comment on above: Performed By: #### 0 0121, 27302, 01028, 03045, 63352 #### [facility] [address] [place] [address], [place] HCO3 (Bld) [Moles/Vol] 24 mmol/L Normal 21-28 [facility] Comment on above: Performed By: #### 0 0121, 90314, 95651, 49840, 92942 #### [facility] [address] [place] [address], [facility] IONIZED CALCIUM 1.07 mmol/L Low 1.13-1.32 [facility] Comment on above: Performed By: #### 0 0121, 01360, 75369, 18297, 20687 #### [facility] [address] [facility] [place] [address], [facility] MIN VOLUME 15.6 Normal [facility] Comment on above: Performed By: #### 0 0121, 94455, 40723, 06898, 23050 #### [facility] [address] [facility] [place] [address], [facility] MODALITY Positive Normal [facility] Comment on above: Performed By: #### 0 0121, 72054, 71817, 86732, 08112 #### [facility] [address] [place] [address], [facility] Oxygen (Bld) [Partial pressure] 89 mm[Hg] Normal 83-108 [facility] Comment on above: Performed By: #### 0 0121, 34793, 21292, 89009, 11239 #### [facility] [address] [place] [address], [place] Oxygen saturation in Blood 94.7 % Normal 94.0-97.0 [facility] Comment on above: Performed By: #### 0 0121, 72127, 13506, 81880, 33987 #### [facility] [address] [place] [address], [facility] PCO2 30 mmHg Low 35-45 [facility] Comment on above: Performed By: #### 0 0121, 64714, 54132, 86000, 37371 #### [facility] [address] [place] [address], [place] PEEP 8.0 CMH20 Normal [facility] Comment on above: Performed By: #### 0 0121, 46460, 37115, 34143, 82665 #### [facility] [address] [place] [address], [facility] pH (Bld) 7.51 [pH] High 7.35-7.45 [facility] Comment on above: Result Comment: KINJAL REYNOSO NOTE: Effective 12/02/18, reference ranges for Respiratory GEM analyzers running arterial blood have been updated to reflect the cocktail lounge manager's published reference ranges. Performed By: #### 0 0121, 34239, 35957, 82062, 15063 #### [facility] [address] [place] [address], [facility] PRESSURE SUPPORT 10 Normal [facility] Comment on above: Performed By: #### 0 0121, 15167, 80559, 88029, 03025 #### [facility] [address] [place] [address], [facility] BASE EXCESS 0 mmol/L Normal -2-3 [facility] Comment on above: Performed By: #### 0 0121, 93893, 79390, 17070, 37479 #### [facility] [address] [place] [address], [facility] [employer] MV Normal [facility] Comment on above: Performed By: #### 0 0121, 54523, 47236, 18692, 27754 #### [facility] [address] [place] [address], [facility] FIO2 40 % Normal [facility] Comment on above: Performed By: #### 0 0121, 51304, 83475, 29265, 63083 #### [facility] [address] [place] [address], [facility] HCO3 (Bld) [Moles/Vol] 23 mmol/L Normal 21-28 [facility] Comment on above: Performed By: #### 0 0121, 05622, 44597, 12926, 16148 #### [facility] [address] [place] [address], [place] IONIZED CALCIUM 1.07 mmol/L Low 1.13-1.32 [facility] Comment on above: Performed By: #### 0 0121, 43911, 01501, 76201, 79758 #### [facility] [address] [place] [address], [facility] MIN VOLUME 17.0 Normal [facility] Comment on above: Performed By: #### 0 0121, 85231, 77272, 27112, 80696 #### [facility] [address] [place] [address], [place] MODALITY AC Normal [facility] Comment on above: Performed By: #### 0 0121, 58981, 45760, 75113, 75868 #### [facility] [address] [place] [address], [place] Oxygen (Bld) [Partial pressure] 94 mm[Hg] Normal 83-108 [facility] Comment on above: Performed By: #### 0 0121, 29612, 74847, 14646, 50400 #### [facility] [address] [place] [address], [place] Oxygen saturation in Blood 95.1 % Normal 94.0-97.0 [facility] Comment on above: Performed By: #### 0 0121, 78298, 51353, 50130, 65466 #### [facility] [address] [place] [address], [place] PCO2 30 mmHg Low 35-45 [facility] Comment on above: Performed By: #### 0 0121, 25785, 03899, 96601, 39968 #### [facility] [address] [place] [address], [place] PEEP 8.0 CMH20 Normal [facility] Comment on above: Performed By: #### 0 0121, 95880, 79264, 55382, 34725 #### [facility] [address] [place] [address], [place] pH (Bld) 7.49 [pH] High 7.35-7.45 [facility] Comment on above: Result Comment: KINJAL REYNOSO NOTE: Effective 12/02/18, reference ranges for Respiratory GEM analyzers running arterial blood have been updated to reflect the cocktail lounge manager's published reference ranges. Performed By: #### 0 0121, 66088, 65985, 47171, 12525 #### [facility] [address] [place] [address], [place] TIDAL VOLUME (VT) CC 700 cc Normal [facility] Comment on above: Performed By: #### 0 0121, 13388, 48539, 32632, 72344 #### [facility] [address] [place] [address], [place] BASE EXCESS 0 mmol/L Normal -2-3 [facility] Comment on above: Performed By: #### 0 0121, 22738, 15383, 53508, 40939 #### [facility] [address] [place] [address], [place] [employer] MV Normal [facility] Comment on above: Performed By: #### 0 0121, 40163, 59827, 12408, 23371 #### [facility] [address] [place] [address], [place] FIO2 50 % Normal [facility] Comment on above: Performed By: #### 0 0121, 31815, 42972, 97981, 66035 #### [facility] [address] [place] [address], [place] HCO3 (Bld) [Moles/Vol] 23 mmol/L Normal 21-28 [facility] Comment on above: Performed By: #### 0 0121, 68531, 08836, 35131, 25803 #### [facility] [address] [place] [address], [place] IONIZED CALCIUM 1.14 mmol/L Normal 1.13-1.32 [facility] Comment on above: Performed By: #### 0 0121, 03334, 00014, 85656, 37939 #### [facility] [address] [place] [address], [place] MIN VOLUME 13.3 Normal [facility] Comment on above: Performed By: #### 0 0121, 55257, 09941, 20322, 98936 #### [facility] [address] [place] [address], [place] MODALITY AC Normal [facility] Comment on above: Performed By: #### 0 0121, 96417, 81772, 74887, 35458 #### [facility] [address] [place] [address], [place] Oxygen (Bld) [Partial pressure] 71 mm[Hg] Low 83-108 [facility] Comment on above: Performed By: #### 0 0121, 00025, 50611, 30681, 12192 #### [facility] [address] [place] [address], [place] Oxygen saturation in Blood 92.6 % Low 94.0-97.0 [facility] Comment on above: Performed By: #### 0 0121, 38462, 57854, 65467, 73890 #### [facility] [address] [place] [address], [place] PCO2 31 mmHg Low 35-45 [facility] Comment on above: Performed By: #### 0 0121, 69568, 42606, 81830, 71133 #### [facility] [address] [place] [address], [facility] PEEP 8.0 CMH20 Normal [facility] Comment on above: Performed By: #### 0 0121, 27638, 25461, 03406, 14675 #### [facility] [address] [place] [address], [facility] PF RATIO 142 mmHg Normal [facility] Comment on above: Performed By: #### 0 0121, 03366, 59688, 39996, 35177 #### [facility] [address] [place] [address], [facility] pH (Bld) 7.47 [pH] High 7.35-7.45 [facility] Comment on above: Result Comment: KINJAL REYNOSO NOTE: Effective 12/02/18, reference ranges for Respiratory GEM analyzers running arterial blood have been updated to reflect the cocktail lounge manager's published reference ranges. Performed By: #### 0 0121, 23979, 45726, 24470, 59462 #### [facility] [address] [place] [address], [facility] TIDAL VOLUME (VT) CC 700 cc Normal [facility] Comment on above: Performed By: #### 0 0121, 92361, 17774, 99778, 85875 #### [facility] [address] [place] [address], [facility] BASIC METABOLIC PANELon - Calcium [Mass/Vol] 8.6 mg/dL Normal 8.6-10.3 [facility] Comment on above: Order Comment: << On admission If not done in ED>> No: Do not add to previous draw Performed By: #### 0 0121, 61972, 24593, 57236, 13727 #### [facility] [address] [place] [address], [facility] Chloride [Moles/Vol] 104 mmol/L Normal 98-107 [facility] Comment on above: Order Comment: << On admission If not done in ED>> No: Do not add to previous draw Performed By: #### 0 0121, 09016, 62679, 51711, 07425 #### [facility] [address] [place] [address], [facility] CO2 [Moles/Vol] 26 mmol/L Normal 21-31 [facility] Comment on above: Order Comment: << On admission If not done in ED>> No: Do not add to previous draw Performed By: #### 0 0121, 96705, 27118, 65739, 61303 #### [facility] [address] [place] [address], [facility] Creatinine [Mass/Vol] 1.48 mg/dL High 0.70-1.30 [facility] Comment on above: Order Comment: << On admission If not done in ED>> No: Do not add to previous draw Performed By: #### 0 0121, 79670, 74189, 37206, 57308 #### [facility] [address] [place] [address], [facility] GFR/1.73 sq M predicted among blacks MDRD (S/P/Bld) [Vol rate/Area] 60 ml/min/1.73sq m Abnormal >60 [facility] Comment on above: Order Comment: << On admission If not done in ED>> No: Do not add to previous draw Performed By: #### 0 0121, 87359, 83559, 57837, 96722 #### [facility] [address] [place] [address], [facility] GFR/1.73 sq M predicted among non-blacks MDRD (S/P/Bld) [Vol rate/Area] 50 ml/min/1.73sq m Abnormal >60 [facility] Comment on above: Order Comment: << On admission If not done in ED>> No: Do not add to previous draw Performed By: #### 0 0121, 12572, 75025, 39709, 79773 #### [facility] [address] [place] [address], [facility] Glucose [Mass/Vol] 115 mg/dL High 70-100 [facility] Comment on above: Order Comment: << On admission If not done in ED>> No: Do not add to previous draw Performed By: #### 0 0121, 92030, 87648, 20243, 47428 #### [facility] [address] [place] [address], [facility] Potassium [Moles/Vol] 3.4 mmol/L Low 3.5-5.1 [facility] Comment on above: Order Comment: << On admission If not done in ED>> No: Do not add to previous draw Performed By: #### 0 0121, 03323, 54609, 29368, 99471 #### [facility] [address] [place] [address], [place] Sodium [Moles/Vol] 138 mmol/L Normal 136-145 [facility] Comment on above: Order Comment: << On admission If not done in ED>> No: Do not add to previous draw Performed By: #### 0 0121, 04179, 76744, 45790, 83212 #### [facility] [address] [place] [address], [place] Urea nitrogen [Mass/Vol] 23 mg/dL Normal 7-25 [facility] Comment on above: Order Comment: << On admission If not done in ED>> No: Do not add to previous draw Performed By: #### 0 0121, 39327, 07192, 10004, 57120 #### [facility] [address] [place] [address], [place] Calcium [Mass/Vol] 8.1 mg/dL Low 8.6-10.3 [facility] Comment on above: Order Comment: << On admission If not done in ED>> No: Do not add to previous draw Performed By: #### 0 0121, 49713, 34564, 31079, 14284 #### [facility] [address] [place] [address], [facility] Chloride [Moles/Vol] 105 mmol/L Normal 98-107 [facility] Comment on above: Order Comment: << On admission If not done in ED>> No: Do not add to previous draw Performed By: #### 0 0121, 25023, 48217, 75343, 94747 #### [facility] [address] [place] [address], [place] CO2 [Moles/Vol] 26 mmol/L Normal 21-31 [facility] Comment on above: Order Comment: << On admission If not done in ED>> No: Do not add to previous draw Performed By: #### 0 0121, 25378, 70051, 53973, 49825 #### [facility] [address] [place] [address], [facility] Creatinine [Mass/Vol] 1.37 mg/dL High 0.70-1.30 [facility] Comment on above: Order Comment: << On admission If not done in ED>> No: Do not add to previous draw Performed By: #### 0 0121, 74658, 45226, 49872, 88557 #### [facility] [address] [place] [address], [place] GFR/1.73 sq M predicted among blacks MDRD (S/P/Bld) [Vol rate/Area] mL/min/{1.73_m2} Normal >60 [facility] Comment on above: Order Comment: << On admission If not done in ED>> No: Do not add to previous draw Performed By: #### 0 0121, 84492, 15803, 58407, 03777 #### [facility] [address] [place] [address], [place] GFR/1.73 sq M predicted among non-blacks MDRD (S/P/Bld) [Vol rate/Area] 54 ml/min/1.73sq m Abnormal >60 [facility] Comment on above: Order Comment: << On admission If not done in ED>> No: Do not add to previous draw Performed By: #### 0 0121, 74583, 23522, 67411, 79658 #### [facility] [address] [place] [address], [place] Glucose [Mass/Vol] 113 mg/dL High 70-100 [facility] Comment on above: Order Comment: << On admission If not done in ED>> No: Do not add to previous draw Performed By: #### 0 0121, 27491, 24124, 46793, 37934 #### [facility] [address] [place] [address], [facility] Potassium [Moles/Vol] 3.3 mmol/L Low 3.5-5.1 [facility] Comment on above: Order Comment: << On admission If not done in ED>> No: Do not add to previous draw Performed By: #### 0 0121, 48366, 76231, 76950, 92064 #### [facility] [address] [place] [address], [place] Sodium [Moles/Vol] 138 mmol/L Normal 136-145 [facility] Comment on above: Order Comment: << On admission If not done in ED>> No: Do not add to previous draw Performed By: #### 0 0121, 47423, 93263, 00316, 69588 #### [facility] [address] [place] [address], [place] Urea nitrogen [Mass/Vol] 19 mg/dL Normal 7-25 [facility] Comment on above: Order Comment: << On admission If not done in ED>> No: Do not add to previous draw Performed By: #### 0 0121, 26594, 27368, 15164, 80958 #### [facility] [address] [place] [address], [facility] Calcium [Mass/Vol] 7.4 mg/dL Low 8.6-10.3 [facility] Comment on above: Order Comment: << On admission If not done in ED>> No: Do not add to previous draw Performed By: #### 0 0121, 92708, 10294, 58422, 58252 #### [facility] [address] [place] [address], [facility] Chloride [Moles/Vol] 109 mmol/L High 98-107 [facility] Comment on above: Order Comment: << On admission If not done in ED>> No: Do not add to previous draw Performed By: #### 0 0121, 73619, 89182, 47135, 19079 #### [facility] [address] [place] [address], [facility] CO2 [Moles/Vol] 21 mmol/L Normal 21-31 [facility] Comment on above: Order Comment: << On admission If not done in ED>> No: Do not add to previous draw Performed By: #### 0 0121, 81726, 93688, 16915, 21264 #### [facility] [address] [place] [address], [facility] Creatinine [Mass/Vol] 1.22 mg/dL Normal 0.70-1.30 [facility] Comment on above: Order Comment: << On admission If not done in ED>> No: Do not add to previous draw Performed By: #### 0 0121, 62359, 96766, 46770, 08521 #### [facility] [address] [place] [address], [facility] GFR/1.73 sq M predicted among blacks MDRD (S/P/Bld) [Vol rate/Area] mL/min/{1.73_m2} Normal >60 [facility] Comment on above: Order Comment: << On admission If not done in ED>> No: Do not add to previous draw Performed By: #### 0 0121, 84221, 03635, 91091, 52043 #### [facility] [address] [place] [address], [facility] GFR/1.73 sq M predicted among non-blacks MDRD (S/P/Bld) [Vol rate/Area] mL/min/{1.73_m2} Normal >60 [facility] Comment on above: Order Comment: << On admission If not done in ED>> No: Do not add to previous draw Performed By: #### 0 0121, 20964, 64659, 89280, 96655 #### [facility] [address] [place] [address], [place] Glucose [Mass/Vol] 129 mg/dL High 70-100 [facility] Comment on above: Order Comment: << On admission If not done in ED>> No: Do not add to previous draw Performed By: #### 0 0121, 99052, 18718, 52668, 51504 #### [facility] [address] [place] [address], [place] Potassium [Moles/Vol] 3.1 mmol/L Low 3.5-5.1 [facility] Comment on above: Order Comment: << On admission If not done in ED>> No: Do not add to previous draw Performed By: #### 0 0121, 16043, 62675, 40356, 29139 #### [facility] [address] [place] [address], [place] Sodium [Moles/Vol] 139 mmol/L Normal 136-145 [facility] Comment on above: Order Comment: << On admission If not done in ED>> No: Do not add to previous draw Performed By: #### 0 0121, 34120, 33197, 58586, 58340 #### [facility] [address] [place] [address], [place] Urea nitrogen [Mass/Vol] 17 mg/dL Normal 7-25 [facility] Comment on above: Order Comment: << On admission If not done in ED>> No: Do not add to previous draw Performed By: #### 0 0121, 52901, 06163, 49422, 24021 #### [facility] [address] CBC COMPLETE BLOOD COUNTon 0 - Erythrocyte distribution width (RBC) [Ratio] 13.5 % Normal 11.5-15.0 [facility] Comment on above: Order Comment: << On admission If not done in ED>> No: Do not add to previous draw Performed By: #### 0 0121, 46878, 34817, 13252, 93657 #### [facility] [address] [place] [address], [facility] Hematocrit (Bld) [Volume fraction] 33.7 % Low 39.0-50.0 [facility] Comment on above: Order Comment: << On admission If not done in ED>> No: Do not add to previous draw Performed By: #### 0 0121, 89253, 00318, 02574, 68880 #### [facility] [address] [place] [address], [facility] Hemoglobin (Bld) [Mass/Vol] 10.9 g/dL Low 13.0-17.0 [facility] Comment on above: Order Comment: << On admission If not done in ED>> No: Do not add to previous draw Performed By: #### 0 0121, 59336, 09915, 30604, 20123 #### [facility] [address] [place] [address], [facility] MCH (RBC) [Entitic mass] 29.3 pg Normal 27.0-33.0 [facility] Comment on above: Order Comment: << On admission If not done in ED>> No: Do not add to previous draw Performed By: #### 0 0121, 25501, 91561, 33469, 51460 #### [facility] [address] MCHC (RBC) [Mass/Vol] 32.3 g/dL Normal 32.0-35.0 [facility] Comment on above: Order Comment: << On admission If not done in ED>> No: Do not add to previous draw Performed By: #### 0 0121, 21453, 10628, 23314, 19498 #### [facility] [address] [place] [address], [facility] MCV (RBC) [Entitic vol] 90.6 fL Normal 82.0-98.0 [facility] Comment on above: Order Comment: << On admission If not done in ED>> No: Do not add to previous draw Performed By: #### 0 0121, 27717, 49022, 92080, 66522 #### [facility] [address] Nucleated RBC/100 WBC (Bld) [Ratio] 0 % Normal 0-0 [facility] Comment on above: Order Comment: << On admission If not done in ED>> No: Do not add to previous draw Performed By: #### 0 0121, 94933, 43150, 58678, 25279 #### [facility] [address] [place] [address], [facility] PLAT CNT 100 10*3/uL Low 150-400 [facility] Comment on above: Order Comment: << On admission If not done in ED>> No: Do not add to previous draw Performed By: #### 0 0121, 14857, 58810, 72819, 21208 #### [facility] [address] [place] [address], [facility] RBC (Bld) [#/Vol] 3.72 10*6/uL Low 4.20-5.70 [facility] Comment on above: Order Comment: << On admission If not done in ED>> No: Do not add to previous draw Performed By: #### 0 0121, 87624, 15081, 08723, 85732 #### [facility] [address] [place] [address], [facility] WBC (Bld) [#/Vol] 17.24 10*3/uL High 4.00-10.60 [facility] Comment on above: Order Comment: << On admission If not done in ED>> No: Do not add to previous draw Performed By: #### 0 0121, 70058, 42618, 98717, 66336 #### [facility] [address] [facility] [address] Erythrocyte distribution width (RBC) [Ratio] 13.5 % Normal 11.5-15.0 [facility] Comment on above: Order Comment: << On admission If not done in ED>> No: Do not add to previous draw Performed By: #### 0 0121, 85689, 34750, 67135, 56815 #### [facility] [address] Hematocrit (Bld) [Volume fraction] 35.2 % Low 39.0-50.0 [facility] Comment on above: Order Comment: << On admission If not done in ED>> No: Do not add to previous draw Performed By: #### 0 0121, 74060, 92820, 50419, 69526 #### [facility] [address] [facility] [address] Hemoglobin (Bld) [Mass/Vol] 11.5 g/dL Low 13.0-17.0 [facility] Comment on above: Order Comment: << On admission If not done in ED>> No: Do not add to previous draw Performed By: #### 0 0121, 39393, 03970, 64338, 27084 #### [facility] [address] [place] [address], [facility] IMM PLATELET FRAC 4.3 % Normal 0.8-6.3 [facility] Comment on above: Order Comment: << On admission If not done in ED>> No: Do not add to previous draw Performed By: #### 0 0121, 11628, 82098, 25474, 53369 #### [facility] [address] [place] [address], [facility] MCH (RBC) [Entitic mass] 29.4 pg Normal 27.0-33.0 [facility] Comment on above: Order Comment: << On admission If not done in ED>> No: Do not add to previous draw Performed By: #### 0 0121, 02166, 16332, 12543, 49396 #### [facility] [address] MCHC (RBC) [Mass/Vol] 32.7 g/dL Normal 32.0-35.0 [facility] Comment on above: Order Comment: << On admission If not done in ED>> No: Do not add to previous draw Performed By: #### 0 0121, 28917, 41455, 98624, 59011 #### [facility] [address] MCV (RBC) [Entitic vol] 90.0 fL Normal 82.0-98.0 [facility] Comment on above: Order Comment: << On admission If not done in ED>> No: Do not add to previous draw Performed By: #### 0 0121, 76414, 44250, 63109, 81684 #### [facility] [address] Nucleated RBC/100 WBC (Bld) [Ratio] 0 % Normal 0-0 [facility] Comment on above: Order Comment: << On admission If not done in ED>> No: Do not add to previous draw Performed By: #### 0 0121, 88349, 78433, 76844, 69144 #### [facility] [address] [place] [address], [facility] PLAT CNT 99 10*3/uL Low 150-400 [facility] Comment on above: Order Comment: << On admission If not done in ED>> No: Do not add to previous draw Performed By: #### 0 0121, 32371, 73034, 59516, 00291 #### [facility] [address] [place] [address], [facility] RBC (Bld) [#/Vol] 3.91 10*6/uL Low 4.20-5.70 [facility] Comment on above: Order Comment: << On admission If not done in ED>> No: Do not add to previous draw Performed By: #### 0 0121, 06244, 28629, 30008, 48084 #### [facility] [address] [place] [address], [facility] WBC (Bld) [#/Vol] 19.55 10*3/uL High 4.00-10.60 [facility] Comment on above: Order Comment: << On admission If not done in ED>> No: Do not add to previous draw Performed By: #### 0 0121, 54643, 45833, 98559, 86102 #### [facility] [address] [place] [address], [facility] Erythrocyte distribution width (RBC) [Ratio] 13.5 % Normal 11.5-15.0 [facility] Comment on above: Order Comment: << On admission If not done in ED>> No: Do not add to previous draw Performed By: #### 0 0121, 43658, 86033, 40693, 52946 #### [facility] [address] [place] [address], [place] Hematocrit (Bld) [Volume fraction] 38.1 % Low 39.0-50.0 [facility] Comment on above: Order Comment: << On admission If not done in ED>> No: Do not add to previous draw Performed By: #### 0 0121, 40153, 25812, 34161, 53019 #### [facility] [address] [place] [address], [place] Hemoglobin (Bld) [Mass/Vol] 12.2 g/dL Low 13.0-17.0 [facility] Comment on above: Order Comment: << On admission If not done in ED>> No: Do not add to previous draw Performed By: #### 0 0121, 50969, 22479, 13335, 08628 #### [facility] [address] IMM PLATELET FRAC 3.8 % Normal 0.8-6.3 [facility] Comment on above: Order Comment: << On admission If not done in ED>> No: Do not add to previous draw Performed By: #### 0 0121, 78781, 54395, 82944, 46485 #### [facility] [address] MCH (RBC) [Entitic mass] 29.0 pg Normal 27.0-33.0 [facility] Comment on above: Order Comment: << On admission If not done in ED>> No: Do not add to previous draw Performed By: #### 0 0121, 39608, 21497, 26332, 89333 #### [facility] [address] MCHC (RBC) [Mass/Vol] 32.0 g/dL Normal 32.0-35.0 [facility] Comment on above: Order Comment: << On admission If not done in ED>> No: Do not add to previous draw Performed By: #### 0 0121, 25173, 66811, 70800, 64046 #### [facility] [address] [place] [address], [facility] MCV (RBC) [Entitic vol] 90.7 fL Normal 82.0-98.0 [facility] Comment on above: Order Comment: << On admission If not done in ED>> No: Do not add to previous draw Performed By: #### 0 0121, 83135, 24212, 72748, 98522 #### [facility] [address] [place] [address], [facility] Nucleated RBC/100 WBC (Bld) [Ratio] 0 % Normal 0-0 [facility] Comment on above: Order Comment: << On admission If not done in ED>> No: Do not add to previous draw Performed By: #### 0 0121, 60485, 23158, 37248, 67616 #### [facility] [address] [place] [address], [facility] PLAT CNT 112 10*3/uL Low 150-400 [facility] Comment on above: Order Comment: << On admission If not done in ED>> No: Do not add to previous draw Performed By: #### 0 0121, 79676, 79545, 82393, 34368 #### [facility] [address] [place] [address], [facility] RBC (Bld) [#/Vol] 4.20 10*6/uL Normal 4.20-5.70 [facility] Comment on above: Order Comment: << On admission If not done in ED>> No: Do not add to previous draw Performed By: #### 0 0121, 63153, 41699, 20075, 61767 #### [facility] [address] [place] [address], [facility] WBC (Bld) [#/Vol] 21.05 10*3/uL High 4.00-10.60 [facility] Comment on above: Order Comment: << On admission If not done in ED>> No: Do not add to previous draw Performed By: #### 0 0121, 60363, 22120, 08208, 07945 #### [facility] [address] [place] [address], [facility] COOXIMETRYon 03-21-2019 COHB 1 % Normal [facility] Comment on above: Performed By: #### 0 0121, 60256, 49422, 92386, 32370 #### [facility] [address] [place] [address], [place] METHB 1 % Normal [facility] Comment on above: Performed By: #### 0 0121, 79129, 06645, 67508, 29079 #### [facility] [address] [place] [address], [place] Oxygen saturation in Blood 59.8 % Low 65.0-75.0 [facility] Comment on above: Performed By: #### 0 0121, 49619, 06445, 62456, 81943 #### [facility] [address] [place] [address], [place] THB 10.9 g/dL Normal [facility] Comment on above: Performed By: #### 0 0121, 09796, 54560, 86051, 99881 #### [facility] [address] [place] [address], [place] COHB 2 % Normal [facility] Comment on above: Performed By: #### 0 0121, 37351, 64854, 99407, 23758 #### [facility] [address] [place] [address], [place] METHB 1 % Normal [facility] Comment on above: Performed By: #### 0 0121, 71011, 13266, 28267, 10150 #### [facility] [address] [place] [address], [place] Oxygen saturation in Blood 70.2 % Normal 65.0-75.0 [facility] Comment on above: Performed By: #### 0 0121, 96545, 90165, 15612, 18773 #### [facility] [address] [place] [address], [place] THB 11.5 g/dL Normal [facility] Comment on above: Performed By: #### 0 0121, 10883, 46703, 13185, 85044 #### [facility] [address] [place] [address], [place] MAGNESIUM BLOODon 03-21-2019 Magnesium [Mass/Vol] 2.1 mg/dL Normal 1.9-2.7 [facility] Comment on above: Order Comment: << On admission If not done in ED>> No: Do not add to previous draw Performed By: #### 0 0121, 92463, 59987, 39713, 23938 #### [facility] [address] [place] [address], [place] Magnesium [Mass/Vol] 2.1 mg/dL Normal 1.9-2.7 [facility] Comment on above: Order Comment: << On admission If not done in ED>> No: Do not add to previous draw Performed By: #### 0 0121, 23294, 25745, 00758, 11439 #### [facility] [address] [place] [address], [place] Magnesium [Mass/Vol] 2.2 mg/dL Normal 1.9-2.7 [facility] Comment on above: Order Comment: << On admission If not done in ED>> No: Do not add to previous draw Performed By: #### 0 0121, 57142, 44406, 01190, 99218 #### [facility] [address] [place] [address], [place] POC GLUCOSE LABon 03-21-2019 Glucose [Mass/Vol] 107 mg/dL High 70-100 [facility] Comment on above: Performed By: #### 0 0121, 62411, 05443, 12810, 36897 #### [facility] [address] [place] [address], [place] Glucose [Mass/Vol] 103 mg/dL High 70-100 [facility] Comment on above: Performed By: #### 0 0121, 81817, 46176, 58679, 14335 #### [facility] [address] [place] [address], [place] Glucose [Mass/Vol] 112 mg/dL High 70-100 [facility] Comment on above: Performed By: #### 0 0121, 44372, 55532, 62166, 16913 #### [facility] [address] [place] [address], [place] Glucose [Mass/Vol] 127 mg/dL High 70-100 [facility] Comment on above: Performed By: #### 0 0121, 33819, 07955, 39436, 21216 #### [facility] [address] [place] [address], [place] Glucose [Mass/Vol] 95 mg/dL Normal 70-100 [facility] Comment on above: Performed By: #### 0 0121, 94957, 14129, 80600, 05551 #### [facility] [address] [place] [address], [place] Glucose [Mass/Vol] 104 mg/dL High 70-100 [facility] Comment on above: Performed By: #### 0 0121, 41564, 87094, 95572, 29193 #### [facility] [address] [place] [address], [place] Glucose [Mass/Vol] 98 mg/dL Normal 70-100 [facility] Comment on above: Performed By: #### 0 0121, 50205, 93371, 41141, 70031 #### [facility] [address] [place] [address], [place] Glucose [Mass/Vol] 113 mg/dL High 70-100 [facility] Comment on above: Performed By: #### 0 0121, 43550, 87979, 57281, 25190 #### [facility] [address] [place] [address], [place] Glucose [Mass/Vol] 130 mg/dL High 70-100 [facility] Comment on above: Performed By: #### 0 0121, 31317, 75057, 06334, 35109 #### [facility] [address] [place] [address], [place] Glucose [Mass/Vol] 130 mg/dL High 70-100 [facility] Comment on above: Performed By: #### 0 0121, 32109, 12706, 75332, 24175 #### [facility] [address] [place] [address], [place] Glucose [Mass/Vol] 129 mg/dL High 70-100 [facility] Comment on above: Performed By: #### 0 0121, 72495, 20805, 33018, 62927 #### [facility] [address] [place] [address], [place] Glucose [Mass/Vol] 108 mg/dL High 70-100 [facility] Comment on above: Performed By: #### 0 0121, 59325, 60218, 95747, 22516 #### [facility] [address] [place] [address], [place] Glucose [Mass/Vol] 101 mg/dL High 70-100 [facility] Comment on above: Performed By: #### 0 0121, 10880, 93271, 54849, 94845 #### [facility] [address] [place] [address], [facility] PORTABLE CHEST 1 VIEWon 03-01 PORTABLE CHEST 1 VIEW [facility] Department of Radiology [address] [place] [id number] ===== Patient Name: TRACIE CRAIN : 1965 Sex: M Age: Race: NA Pt. Location: [id number] Patient Status: I Ordered Date: 03/21/2019 5:00:00 [...] of field of view, in satisfactory position. [place] catheter is again seen with tip projecting [...] findings. Electronically signed by:Yenni Osuna. Transcribed by: [email or web address], User Resident: CYNTHIA FINLEY Electronically Signed by: YENNI OSUNA @ 03/22/2019 01:07 PM I personally read this/these film(s) with this resident Normal [facility] Comment on above: Order Comment: << On admission If not done in ED>> No: Do not add to previous draw ARTERIAL BLOOD GAS WITH ICAo n 03-20-2019 BASE EXCESS -4 mmol/L Low -2-3 [facility] Comment on above: Performed By: #### 0 0121, 21074, 78338, 44097, 62305 #### [facility] [address] [place] [address], [facility] DELIVERY SYSTEMS VENTILATOR Normal [facility] Comment on above: Performed By: #### 0 0121, 64019, 78407, 98640, 70984 #### [facility] [address] [place] [address], [facility] FIO2 50 % Normal [facility] Comment on above: Performed By: #### 0 0121, 03416, 90908, 61700, 33712 #### [facility] [address] [place] [address], [facility] HCO3 (Bld) [Moles/Vol] 19 mmol/L Low 21-28 [facility] Comment on above: Performed By: #### 0 0121, 55431, 91081, 02476, 70201 #### [facility] [address] [place] [address], [place] IONIZED CALCIUM 1.06 mmol/L Low 1.13-1.32 [facility] Comment on above: Performed By: #### 0 0121, 22062, 87412, 42978, 15655 #### [facility] [address] [place] [address], [place] MIN VOLUME 14.2 Normal [facility] Comment on above: Performed By: #### 0 0121, 83280, 37365, 52114, 59971 #### [facility] [address] [place] [address], [place] MODALITY AC-ASSIST CONTROL Normal [facility] Comment on above: Performed By: #### 0 0121, 85270, 04315, 11405, 49135 #### [facility] [address] [place] [address], [facility] Oxygen (Bld) [Partial pressure] 82 mm[Hg] Low 83-108 [facility] Comment on above: Performed By: #### 0 0121, 73863, 08143, 46828, 93903 #### [facility] [address] [place] [address], [place] Oxygen saturation in Blood 94.4 % Normal 94.0-97.0 [facility] Comment on above: Performed By: #### 0 0121, 82110, 09440, 48124, 23195 #### [facility] [address] [place] [address], [place] PCO2 27 mmHg Low 35-45 [facility] Comment on above: Performed By: #### 0 0121, 69840, 09469, 06123, 86101 #### [facility] [address] [place] [address], [place] PEEP 8.0 CMH20 Normal [facility] Comment on above: Performed By: #### 0 0121, 49384, 26027, 15334, 82550 #### [facility] [address] [place] [address], [place] pH (Bld) 7.45 [pH] Normal 7.35-7.45 [facility] Comment on above: Result Comment: KINJAL REYNOSO NOTE: Effective 12/02/18, reference ranges for Respiratory GEM analyzers running arterial blood have been updated to reflect the cocktail lounge manager's published reference ranges. Performed By: #### 0 0121, 71594, 01802, 64323, 08505 #### [facility] [address] [place] [address], [place] TIDAL VOLUME (VT) CC 700 cc Normal [facility] Comment on above: Performed By: #### 0 0121, 94505, 75220, 05173, 77848 #### [facility] [address] [place] [address], [facility] BASE EXCESS -2 mmol/L Normal -2-3 [facility] Comment on above: Performed By: #### 0 0121, 94321, 32531, 79001, 94618 #### [facility] [address] [place] [address], [facility] DELIVERY SYSTEMS MV Normal [facility] Comment on above: Performed By: #### 0 0121, 98450, 59336, 06113, 03364 #### [facility] [address] [place] [address], [facility] FIO2 100 % Normal [facility] Comment on above: Performed By: #### 0 0121, 45139, 12204, 28358, 30959 #### [facility] [address] [place] [address], [facility] HCO3 (Bld) [Moles/Vol] 22 mmol/L Normal 21-28 [facility] Comment on above: Performed By: #### 0 0121, 51973, 10836, 06691, 49123 #### [facility] [address] [place] [address], [facility] IONIZED CALCIUM 1.18 mmol/L Normal 1.13-1.32 [facility] Comment on above: Performed By: #### 0 0121, 27745, 19118, 09842, 58281 #### [facility] [address] [place] [address], [facility] MIN VOLUME 13.0 Normal [facility] Comment on above: Performed By: #### 0 0121, 04980, 63825, 96202, 87082 #### [facility] [address] [place] [address], [facility] MODALITY AC Normal [facility] Comment on above: Performed By: #### 0 0121, 60724, 98684, 06920, 34596 #### [facility] [address] [place] [address], [place] Oxygen (Bld) [Partial pressure] 109 mm[Hg] Critically high 83-108 [facility] Comment on above: Performed By: #### 0 0121, 87329, 34196, 98972, 91523 #### [facility] [address] [place] [address], [place] Oxygen saturation in Blood 95.6 % Normal 94.0-97.0 [facility] Comment on above: Performed By: #### 0 0121, 87216, 29594, 28906, 13811 #### [facility] [address] [place] [address], [place] PCO2 33 mmHg Low 35-45 [facility] Comment on above: Performed By: #### 0 0121, 43626, 97370, 45661, 07490 #### [facility] [address] [place] [address], [place] PEEP 10.0 CMH20 Normal [facility] Comment on above: Performed By: #### 0 0121, 72621, 03246, 72295, 13277 #### [facility] [address] [place] [address], [place] PF RATIO 109 mmHg Normal [facility] Comment on above: Performed By: #### 0 0121, 20783, 65063, 46771, 57766 #### [facility] [address] [place] [address], [place] pH (Bld) 7.43 [pH] Normal 7.35-7.45 [facility] Comment on above: Result Comment: KINJAL REYNOSO NOTE: Effective 12/02/18, reference ranges for Respiratory GEM analyzers running arterial blood have been updated to reflect the cocktail lounge manager's published reference ranges. Performed By: #### 0 0121, 17655, 00182, 88493, 69062 #### [facility] [address] [place] [address], [place] TIDAL VOLUME (VT) CC 700 cc Normal [facility] Comment on above: Performed By: #### 0 0121, 28725, 77206, 04109, 30347 #### [facility] [address] [place] [address], [facility] BASE EXCESS -4 mmol/L Low -2-3 [facility] Comment on above: Performed By: #### 0 0121, 94778, 42865, 08332, 23584 #### [facility] [address] [place] [address], [facility] DELIVERY SYSTEMS VENTILATOR Normal [facility] Comment on above: Performed By: #### 0 0121, 74918, 75211, 73143, 17719 #### [facility] [address] [place] [address], [facility] FIO2 100 % Normal [facility] Comment on above: Performed By: #### 0 0121, 98558, 96474, 56755, 53550 #### [facility] [address] [place] [address], [facility] HCO3 (Bld) [Moles/Vol] 20 mmol/L Low 21-28 [facility] Comment on above: Performed By: #### 0 0121, 76517, 92142, 12856, 04146 #### [facility] [address] [place] [address], [facility] IONIZED CALCIUM 1.23 mmol/L Normal 1.13-1.32 [facility] Comment on above: Performed By: #### 0 0121, 23054, 58456, 83261, 98268 #### [facility] [address] [place] [address], [place] MIN VOLUME 15.1 Normal [facility] Comment on above: Performed By: #### 0 0121, 45116, 64704, 02219, 88403 #### [facility] [address] [place] [address], [facility] MODALITY AC-ASSIST CONTROL Normal [facility] Comment on above: Performed By: #### 0 0121, 58472, 89733, 60422, 15095 #### [facility] [address] [place] [address], [place] Oxygen (Bld) [Partial pressure] 90 mm[Hg] Normal 83-108 [facility] Comment on above: Performed By: #### 0 0121, 59200, 79146, 52525, 14692 #### [facility] [address] [place] [address], [facility] Oxygen saturation in Blood 95.1 % Normal 94.0-97.0 [facility] Comment on above: Performed By: #### 0 0121, 13721, 36313, 73660, 62469 #### [facility] [address] [facility] [place] [address], [facility] PCO2 32 mmHg Low 35-45 [facility] Comment on above: Performed By: #### 0 0121, 09369, 56225, 99179, 92527 #### [facility] [address] [facility] [place] [address], [facility] PEEP 10.0 CMH20 Normal [facility] Comment on above: Performed By: #### 0 0121, 56063, 25827, 53071, 30686 #### [facility] [address] [facility] [place] [address], [place] PF RATIO 900 mmHg Normal [facility] Comment on above: Performed By: #### 0 0121, 72217, 68412, 74910, 54821 #### [facility] [address] [place] [address], [place] pH (Bld) 7.40 [pH] Normal 7.35-7.45 [facility] Comment on above: Result Comment: KINJAL REYNOSO NOTE: Effective 12/02/18, reference ranges for Respiratory GEM analyzers running arterial blood have been updated to reflect the cocktail lounge manager's published reference ranges. Performed By: #### 0 0121, 54616, 42055, 11711, 90251 #### [facility] [address] [place] [address], [facility] TIDAL VOLUME (VT) CC 700 cc Normal [facility] Comment on above: Performed By: #### 0 0121, 98433, 28767, 51124, 59760 #### [facility] [address] [place] [address], [facility] BASIC METABOLIC PANELon 06-2 Calcium [Mass/Vol] 8.1 mg/dL Low 8.6-10.3 [facility] Comment on above: Order Comment: << On admission If not done in ED>> No: Do not add to previous draw Performed By: #### 0 0121, 41518, 07754, 32250, 04509 #### [facility] [address] [place] [address], [facility] Chloride [Moles/Vol] 112 mmol/L High 98-107 [facility] Comment on above: Order Comment: << On admission If not done in ED>> No: Do not add to previous draw Performed By: #### 0 0121, 57930, 65216, 03248, 12336 #### [facility] [address] [place] [address], [facility] CO2 [Moles/Vol] 24 mmol/L Normal 21-31 [facility] Comment on above: Order Comment: << On admission If not done in ED>> No: Do not add to previous draw Performed By: #### 0 0121, 05559, 25464, 49476, 97167 #### [facility] [address] [place] [address], [facility] Creatinine [Mass/Vol] 0.97 mg/dL Normal 0.70-1.30 [facility] Comment on above: Order Comment: << On admission If not done in ED>> No: Do not add to previous draw Performed By: #### 0 0121, 43218, 21757, 20104, 28246 #### [facility] [address] [place] [address], [place] GFR/1.73 sq M predicted among blacks MDRD (S/P/Bld) [Vol rate/Area] mL/min/{1.73_m2} Normal >60 [facility] Comment on above: Order Comment: << On admission If not done in ED>> No: Do not add to previous draw Performed By: #### 0 0121, 59866, 97371, 36081, 84797 #### [facility] [address] [place] [address], [place] GFR/1.73 sq M predicted among non-blacks MDRD (S/P/Bld) [Vol rate/Area] mL/min/{1.73_m2} Normal >60 [facility] Comment on above: Order Comment: << On admission If not done in ED>> No: Do not add to previous draw Performed By: #### 0 0121, 76081, 20043, 29100, 26740 #### [facility] [address] [place] [address], [place] Glucose [Mass/Vol] 134 mg/dL High 70-100 [facility] Comment on above: Order Comment: << On admission If not done in ED>> No: Do not add to previous draw Performed By: #### 0 0121, 01729, 17737, 35577, 03410 #### [facility] [address] [place] [address], [place] Potassium [Moles/Vol] 3.9 mmol/L Normal 3.5-5.1 [facility] Comment on above: Order Comment: << On admission If not done in ED>> No: Do not add to previous draw Performed By: #### 0 0121, 21908, 11963, 27973, 28832 #### [facility] [address] [place] [address], [place] Sodium [Moles/Vol] 142 mmol/L Normal 136-145 [facility] Comment on above: Order Comment: << On admission If not done in ED>> No: Do not add to previous draw Performed By: #### 0 0121, 34782, 57507, 05082, 13664 #### [facility] [address] [place] [address], [place] Urea nitrogen [Mass/Vol] 16 mg/dL Normal 7-25 [facility] Comment on above: Order Comment: << On admission If not done in ED>> No: Do not add to previous draw Performed By: #### 0 0121, 41466, 51166, 78998, 69811 #### [facility] [address] [place] [address], [place] Chloride [Moles/Vol] 113 mmol/L High 98-107 [facility] Comment on above: Order Comment: << On admission If not done in ED>> No: Do not add to previous draw Performed By: #### 0 0121, 68409, 45374, 00136, 76122 #### [facility] [address] [place] [address], [place] CO2 [Moles/Vol] 23 mmol/L Normal 21-31 [facility] Comment on above: Order Comment: << On admission If not done in ED>> No: Do not add to previous draw Performed By: #### 0 0121, 79826, 31049, 22000, 72927 #### [facility] [address] [place] [address], [place] Creatinine [Mass/Vol] 1.11 mg/dL Normal 0.70-1.30 [facility] Comment on above: Order Comment: << On admission If not done in ED>> No: Do not add to previous draw Performed By: #### 0 0121, 44012, 86449, 90758, 80721 #### [facility] [address] [place] [address], [place] Glucose [Mass/Vol] 157 mg/dL High 70-100 [facility] Comment on above: Order Comment: << On admission If not done in ED>> No: Do not add to previous draw Performed By: #### 0 0121, 82725, 53521, 19694, 57695 #### [facility] [address] [place] [address], [place] Potassium [Moles/Vol] 4.0 mmol/L Normal 3.5-5.1 [facility] Comment on above: Order Comment: << On admission If not done in ED>> No: Do not add to previous draw Performed By: #### 0 0121, 81477, 53891, 60166, 72067 #### [facility] [address] [place] [address], [place] Sodium [Moles/Vol] 143 mmol/L Normal 136-145 [facility] Comment on above: Order Comment: << On admission If not done in ED>> No: Do not add to previous draw Performed By: #### 0 0121, 34472, 91582, 92308, 49076 #### [facility] [address] [place] [address], [place] Urea nitrogen [Mass/Vol] 17 mg/dL Normal 7-25 [facility] Comment on above: Order Comment: << On admission If not done in ED>> No: Do not add to previous draw Performed By: #### 0 0121, 89116, 31637, 09896, 50601 #### [facility] [address] [place] [address], [place] Calcium [Mass/Vol] 8.7 mg/dL Normal 8.6-10.3 [facility] Comment on above: Order Comment: << On admission If not done in ED>> No: Do not add to previous draw Performed By: #### 0 0121, 82031, 25117, 44899, 15977 #### [facility] [address] [place] [address], [place] CO2 [Moles/Vol] 22 mmol/L Normal 21-31 [facility] Comment on above: Order Comment: << On admission If not done in ED>> No: Do not add to previous draw Performed By: #### 0 0121, 77582, 23055, 19522, 49665 #### [facility] [address] [place] [address], [place] Creatinine [Mass/Vol] 1.00 mg/dL Normal 0.70-1.30 [facility] Comment on above: Order Comment: << On admission If not done in ED>> No: Do not add to previous draw Performed By: #### 0 0121, 23362, 04476, 87366, 15386 #### [facility] [address] [place] [address], [place] Glucose [Mass/Vol] 126 mg/dL High 70-100 [facility] Comment on above: Order Comment: << On admission If not done in ED>> No: Do not add to previous draw Performed By: #### 0 0121, 96029, 59754, 12792, 18061 #### [facility] [address] [place] [address], [place] Potassium [Moles/Vol] 4.1 mmol/L Normal 3.5-5.1 [facility] Comment on above: Order Comment: << On admission If not done in ED>> No: Do not add to previous draw Performed By: #### 0 0121, 92363, 82694, 07000, 36655 #### [facility] [address] [place] [address], [place] CBC COMPLETE BLOOD COUNTon 0 - Erythrocyte distribution width (RBC) [Ratio] 13.2 % Normal 11.5-15.0 [facility] Comment on above: Order Comment: << On admission If not done in ED>> No: Do not add to previous draw Performed By: #### 0 0121, 70102, 35254, 91275, 16203 #### [facility] [address] [facility] [place] [address], [facility] Hematocrit (Bld) [Volume fraction] 39.8 % Normal 39.0-50.0 [facility] Comment on above: Order Comment: << On admission If not done in ED>> No: Do not add to previous draw Performed By: #### 0 0121, 25446, 65370, 26897, 96410 #### [facility] [address] [facility] [address] Hemoglobin (Bld) [Mass/Vol] 12.8 g/dL Low 13.0-17.0 [facility] Comment on above: Order Comment: << On admission If not done in ED>> No: Do not add to previous draw Performed By: #### 0 0121, 33511, 98310, 55942, 06640 #### [facility] [address] MCH (RBC) [Entitic mass] 28.8 pg Normal 27.0-33.0 [facility] Comment on above: Order Comment: << On admission If not done in ED>> No: Do not add to previous draw Performed By: #### 0 0121, 38918, 39537, 02633, 52779 #### [facility] [address] [address] MCHC (RBC) [Mass/Vol] 32.2 g/dL Normal 32.0-35.0 [facility] Comment on above: Order Comment: << On admission If not done in ED>> No: Do not add to previous draw Performed By: #### 0 0121, 37125, 77998, 19380, 64624 #### [facility] [address] [place] [address], [facility] MCV (RBC) [Entitic vol] 89.4 fL Normal 82.0-98.0 [facility] Comment on above: Order Comment: << On admission If not done in ED>> No: Do not add to previous draw Performed By: #### 0 0121, 00521, 91467, 05109, 92540 #### [facility] [address] [place] [address], [facility] Nucleated RBC/100 WBC (Bld) [Ratio] 0 % Normal 0-0 [facility] Comment on above: Order Comment: << On admission If not done in ED>> No: Do not add to previous draw Performed By: #### 0 0121, 99868, 96581, 41962, 77844 #### [facility] [address] [place] [address], [facility] PLAT CNT 144 10*3/uL Low 150-400 [facility] Comment on above: Order Comment: << On admission If not done in ED>> No: Do not add to previous draw Performed By: #### 0 0121, 00286, 70703, 21774, 20711 #### [facility] [address] [place] [address], [facility] RBC (Bld) [#/Vol] 4.45 10*6/uL Normal 4.20-5.70 [facility] Comment on above: Order Comment: << On admission If not done in ED>> No: Do not add to previous draw Performed By: #### 0 0121, 34223, 98426, 30503, 67566 #### [facility] [address] [place] [address], [facility] WBC (Bld) [#/Vol] 18.51 10*3/uL High 4.00-10.60 [facility] Comment on above: Order Comment: << On admission If not done in ED>> No: Do not add to previous draw Performed By: #### 0 0121, 13470, 96604, 94742, 24311 #### [facility] [address] [place] [address], [facility] Erythrocyte distribution width (RBC) [Ratio] 13.1 % Normal 11.5-15.0 [facility] Comment on above: Order Comment: << On admission If not done in ED>> No: Do not add to previous draw Performed By: #### 0 0121, 31059, 97231, 37379, 17404 #### [facility] [address] [place] [address], [facility] Hematocrit (Bld) [Volume fraction] 43.9 % Normal 39.0-50.0 [facility] Comment on above: Order Comment: << On admission If not done in ED>> No: Do not add to previous draw Performed By: #### 0 0121, 66456, 17474, 93705, 99008 #### [facility] [address] [place] [address], [facility] Hemoglobin (Bld) [Mass/Vol] 13.9 g/dL Normal 13.0-17.0 [facility] Comment on above: Order Comment: << On admission If not done in ED>> No: Do not add to previous draw Performed By: #### 0 0121, 54043, 40057, 58356, 34381 #### [facility] [address] [place] [address], [facility] MCH (RBC) [Entitic mass] 28.7 pg Normal 27.0-33.0 [facility] Comment on above: Order Comment: << On admission If not done in ED>> No: Do not add to previous draw Performed By: #### 0 0121, 42833, 88506, 19654, 47610 #### [facility] [address] [place] [address], [facility] MCHC (RBC) [Mass/Vol] 31.7 g/dL Low 32.0-35.0 [facility] Comment on above: Order Comment: << On admission If not done in ED>> No: Do not add to previous draw Performed By: #### 0 0121, 23403, 77788, 46479, 94531 #### [facility] [address] MCV (RBC) [Entitic vol] 90.5 fL Normal 82.0-98.0 [facility] Comment on above: Order Comment: << On admission If not done in ED>> No: Do not add to previous draw Performed By: #### 0 0121, 73362, 59316, 44357, 80198 #### [facility] [address] [place] [address], [facility] PLAT CNT 185 10*3/uL Normal 150-400 [facility] Comment on above: Order Comment: << On admission If not done in ED>> No: Do not add to previous draw Performed By: #### 0 0121, 53635, 47855, 64358, 19075 #### [facility] [address] [place] [address], [facility] RBC (Bld) [#/Vol] 4.85 10*6/uL Normal 4.20-5.70 [facility] Comment on above: Order Comment: << On admission If not done in ED>> No: Do not add to previous draw Performed By: #### 0 0121, 46665, 66403, 48746, 59262 #### [facility] [address] [place] [address], [facility] WBC (Bld) [#/Vol] 19.37 10*3/uL High 4.00-10.60 [facility] Comment on above: Order Comment: << On admission If not done in ED>> No: Do not add to previous draw Performed By: #### 0 0121, 79837, 27337, 40453, 44398 #### [facility] [address] [place] [address], [facility] Hematocrit (Bld) [Volume fraction] 42.3 % Normal 39.0-50.0 [facility] Comment on above: Order Comment: << On admission If not done in ED>> No: Do not add to previous draw Performed By: #### 0 0121, 79573, 63053, 47094, 20120 #### [facility] [address] [facility] [place] [address], [facility] Hemoglobin (Bld) [Mass/Vol] 14.0 g/dL Normal 13.0-17.0 [facility] Comment on above: Order Comment: << On admission If not done in ED>> No: Do not add to previous draw Performed By: #### 0 0121, 71256, 34192, 41611, 61963 #### [facility] [address] [facility] [place] [address], [facility] MCH (RBC) [Entitic mass] 29.2 pg Normal 27.0-33.0 [facility] Comment on above: Order Comment: << On admission If not done in ED>> No: Do not add to previous draw Performed By: #### 0 0121, 27362, 63465, 60618, 02545 #### [facility] [address] MCHC (RBC) [Mass/Vol] 33.1 g/dL Normal 32.0-35.0 [facility] Comment on above: Order Comment: << On admission If not done in ED>> No: Do not add to previous draw Performed By: #### 0 0121, 20177, 25014, 81417, 65868 #### [facility] [address] [facility] MCV (RBC) [Entitic vol] 88.3 fL Normal 82.0-98.0 [facility] Comment on above: Order Comment: << On admission If not done in ED>> No: Do not add to previous draw Performed By: #### 0 0121, 21071, 42581, 06442, 91625 #### [facility] [address] [place] [address], [facility] PLAT CNT 169 10*3/uL Normal 150-400 [facility] Comment on above: Order Comment: << On admission If not done in ED>> No: Do not add to previous draw Performed By: #### 0 0121, 37895, 90467, 60648, 05625 #### [facility] [address] [place] [address], [place] RBC (Bld) [#/Vol] 4.79 10*6/uL Normal 4.20-5.70 [facility] Comment on above: Order Comment: << On admission If not done in ED>> No: Do not add to previous draw Performed By: #### 0 0121, 72315, 09364, 82203, 57229 #### [facility] [address] [place] [address], [place] WBC (Bld) [#/Vol] 19.78 10*3/uL High 4.00-10.60 [facility] Comment on above: Order Comment: << On admission If not done in ED>> No: Do not add to previous draw Performed By: #### 0 0121, 88561, 98406, 31286, 65955 #### [facility] [address] [place] [address], [place] COOXIMETRYon 03-20-2019 COHB 2 % Normal [facility] Comment on above: Performed By: #### 0 0121, 52726, 24661, 63997, 26978 #### [facility] [address] [place] [address], [place] METHB 0 % Normal [facility] Comment on above: Performed By: #### 0 0121, 88675, 45968, 76928, 26045 #### [facility] [address] [place] [address], [place] Oxygen saturation in Blood 68.0 % Normal 65.0-75.0 [facility] Comment on above: Performed By: #### 0 0121, 89716, 72938, 36321, 28614 #### [facility] [address] [place] [address], [place] THB 13.2 g/dL Normal [facility] Comment on above: Performed By: #### 0 0121, 03550, 81808, 88446, 00002 #### [facility] [address] CPK-MB PROFILEon 03-20-2019 CK [Catalytic activity/Vol] 2914 U/L Critically high 30-223 [facility] Comment on above: Order Comment: << On admission If not done in ED>> No: Do not add to previous draw Performed By: #### 0 0121, 28000, 44248, 70670, 15452 #### [facility] [address] CK.MB [Mass/Vol] 3.8 ng/mL Critically high 0.0-1.9 [facility] Comment on above: Order Comment: << On admission If not done in ED>> No: Do not add to previous draw Result Comment: M-CR ITICAL RESULT(S) REVIEWED, CALLED TO AND READ BACK BY DAKOTAH MONTANO RN AT 0550 Performed By: #### 0 0121, 42568, 93401, 05040, 35829 #### [facility] [address] CK.MB [Mass/Vol] 111.1 ng/mL High 0.0-5.0 [facility] Comment on above: Order Comment: << On admission If not done in ED>> No: Do not add to previous draw Result Comment: IF T OTAL CK <200 U/L AND: 1. CKMB IS 5-10 NG/ML----BORDERLINE 2. CKMB IS >10 NG/ML----INDICATIVE OF DE OR IF TOTAL CK >200 U/L AND CKMB INDEX >1.9----INDICATIVE OF DE Performed By: #### 0 0121, 20550, 79529, 63589, 03714 #### [facility] [address] [place] [address], [facility] LACTATE BLOODon 03-20-2019 Lactate [Moles/Vol] 1.9 mmol/L Normal 0.5-2.2 [facility] Comment on above: Order Comment: << On admission If not done in ED>> No: Do not add to previous draw Performed By: #### 0 0121, 92099, 58727, 57713, 08152 #### [facility] [address] [place] [address], [facility] Lactate [Moles/Vol] 3.1 mmol/L Critically high 0.5-2.2 [facility] Comment on above: Order Comment: << On admission If not done in ED>> No: Do not add to previous draw Result Comment: M-HI EVIOUS CRITICAL RESULT Performed By: #### 0 0121, 35473, 84894, 20306, 58212 #### [facility] [address] [place] [address], [facility] Lactate [Moles/Vol] 2.7 mmol/L Critically high 0.5-2.2 [facility] Comment on above: Order Comment: << On admission If not done in ED>> No: Do not add to previous draw Result Comment: M-HI EVIOUS CRITICAL RESULT Performed By: #### 0 0121, 49174, 54513, 38809, 45950 #### [facility] [address] [place] [address], [facility] MAGNESIUM BLOODon 03-20-2019 Magnesium [Mass/Vol] 2.1 mg/dL Normal 1.9-2.7 [facility] Comment on above: Order Comment: << On admission If not done in ED>> No: Do not add to previous draw Performed By: #### 0 0121, 99680, 82980, 05867, 44748 #### [facility] [address] [place] [address], [facility] Magnesium [Mass/Vol] 2.3 mg/dL Normal 1.9-2.7 [facility] Comment on above: Order Comment: << On admission If not done in ED>> No: Do not add to previous draw Performed By: #### 0 0121, 34191, 11791, 80238, 04926 #### [facility] [address] [place] [address], [facility] Magnesium [Mass/Vol] 2.4 mg/dL Normal 1.9-2.7 [facility] Comment on above: Order Comment: << On admission If not done in ED>> No: Do not add to previous draw Performed By: #### 0 0121, 92760, 82386, 66532, 62759 #### [facility] [address] [place], [place] [address] [place] [address] Operative Reporton 9 Operative Report MR#: [id number] [facility] Pt. Name: Tracie Crain Room #: [id number] Discharge Date: Birthdate: 1965 OPERATIVE REPORT DATE [...] Black MD Date Trans: 03/20/2019 02:34 A/bessie DN_JN:[id number] cc: Titus Villegas M.D. [address], [facility] [place] [address] [place] [facility] Operative Report MR#: [id number] [facility] Pt. Name: Tracie Crain Room #: [id number] Discharge Date: Birthdate: 1965 OPERATIVE REPORT DATE [...] and posteromedial papillary muscle. These were 4.0 [place] stitches and they were brought out in [...] Black MD Date Trans: 03/20/2019 02:21 A/bessie DN_JN:[id number] cc: Titus Villegas M.D. [address] [facility] [address] [facility] POC GLUCOSE LABon 03-20-2019 Glucose [Mass/Vol] 117 mg/dL High 70-100 [facility] Comment on above: Performed By: #### 0 0121, 56970, 03805, 72923, 62717 #### [facility] [address] [place] [address], [place] Glucose [Mass/Vol] 114 mg/dL High 70-100 [facility] Comment on above: Performed By: #### 0 0121, 51580, 21747, 11995, 63516 #### [facility] [address] [place] [address], [place] Glucose [Mass/Vol] 117 mg/dL High 70-100 [facility] Comment on above: Performed By: #### 0 0121, 55960, 85269, 08929, 09569 #### [facility] [address] [place] [address], [place] Glucose [Mass/Vol] 99 mg/dL Normal 70-100 [facility] Comment on above: Performed By: #### 0 0121, 56702, 24071, 49794, 55013 #### [facility] [address] [place] [address], [place] Glucose [Mass/Vol] 125 mg/dL High 70-100 [facility] Comment on above: Performed By: #### 0 0121, 92559, 21934, 53304, 54355 #### [facility] [address] [place] [address], [place] Glucose [Mass/Vol] 102 mg/dL High 70-100 [facility] Comment on above: Performed By: #### 0 0121, 40769, 09219, 79026, 23168 #### [facility] [address] [place] [address], [place] Glucose [Mass/Vol] 97 mg/dL Normal 70-100 [facility] Comment on above: Performed By: #### 0 0121, 13927, 68594, 04247, 82770 #### [facility] [address] [place] [address], [place] Glucose [Mass/Vol] 102 mg/dL High 70-100 [facility] Comment on above: Performed By: #### 0 0121, 06831, 25396, 01098, 47235 #### [facility] [address] [place] [address], [place] Glucose [Mass/Vol] 124 mg/dL High 70-100 [facility] Comment on above: Performed By: #### 0 0121, 24782, 09208, 10664, 86468 #### [facility] [address] [place] [address], [place] Glucose [Mass/Vol] 112 mg/dL High 70-100 [facility] Comment on above: Order Comment: << On admission If not done in ED>> No: Do not add to previous draw Performed By: #### 0 0121, 42041, 05685, 86246, 69921 #### [facility] [address] [place] [address], [place] Glucose [Mass/Vol] 129 mg/dL High 70-100 [facility] Comment on above: Performed By: #### 0 0121, 88310, 29009, 01643, 62156 #### [facility] [address] [place] [address], [place] Glucose [Mass/Vol] 122 mg/dL High 70-100 [facility] Comment on above: Performed By: #### 0 0121, 36345, 83871, 79229, 29891 #### [facility] [address] [place] [address], [place] Glucose [Mass/Vol] 133 mg/dL High 70-100 [facility] Comment on above: Performed By: #### 0 0121, 17266, 38394, 47187, 30515 #### [facility] [address] [facility] [place] [address], [facility] Glucose [Mass/Vol] 130 mg/dL High 70-100 [facility] Comment on above: Performed By: #### 5 7307 #### [facility] [address] [facility] [place] [address], [facility] Glucose [Mass/Vol] 142 mg/dL High 70-100 [facility] Comment on above: Performed By: #### 5 7307 #### [facility] [address] [facility] [place] [address], [facility] PORTABLE CHEST 1 VIEWon 03-01 PORTABLE CHEST 1 VIEW [facility] Department of Radiology [address] [place] [address] [phone] ===== Patient Name: TRACIE CRAIN : 1965 Sex: M Age: Race: NA Pt. Location: [id number] Patient Status: I Ordered Date: 03/20/2019 8:05:00 [...] tube is 7 cm from the loki. [place] catheter with tip projecting over the pulmonary [...] findings. Electronically signed by:Yenni Osuna. Transcribed by: [email or web address], User Resident: ANAI ALVARADO Electronically Signed by: YENNI OSUNA @ 03/22/2019 11:07 AM I personally read this/these film(s) with this resident Normal [facility] Comment on above: Order Comment: << On admission If not done in ED>> No: Do not add to previous draw PORTABLE CHEST 1 VIEW [facility] Department of Radiology [address] [place] [id number] ===== Patient Name: TRACIE CRAIN : 1965 Sex: M Age: Race: NA Pt. Location: [id number] Patient Status: I Ordered Date: 03/20/2019 5:00:00 [...] tube is 7 cm from the loki. [place] catheter with tip projecting over the pulmonary [...] findings. Electronically signed by:Divya Collins. Transcribed by: [email or web address], User Resident: ANAI ALVARADO Electronically Signed by: DIVYA COLLINS @ 03/20/2019 11:01 AM I personally read this/these film(s) with this resident Normal [facility] Comment on above: Order Comment: << On admission If not done in ED>> No: Do not add to previous draw PROTHROMBIN TIMEon 9 INR Coag (PPP) [Relative time] 1.37 {INR} High 0.91-1.16 [facility] Comment on above: Order Comment: << [...] CHEST 1995;108:231S-246S. Performed By: #### 0 0121, 64946, 60500, 38452, 84723 #### [facility] [address] [place] [address], [facility] PT Coag (PPP) [Time] 16.9 s High 12.3-14.8 [facility] Comment on above: Order Comment: << On admission If not done in ED>> No: Do not add to previous draw Result Comment: ALL RESULTS MUST BE INTERPRETED WITH RESPECT TO BLOOD DRAWING ARTIFACT OR DILUTION ERROR OF ANTICOAGULANT AT THE TIME OF SAMPLING. Performed By: #### 0 0121, 05977, 63451, 64764, 21727 #### [facility] [address] [place] [address], [place] ACTIVATED CLOTTING TIMEon ACTIVATED CLOTTING TIME 115 sec Normal 82-152 [facility] Comment on above: Performed By: #### 8 5123, 36489 #### [facility] [address] [place] [address], [place] ACTIVATED CLOTTING TIME 508 sec High 82-152 [facility] Comment on above: Performed By: #### 8 5123, 55222 #### [facility] [address] [place] [address], [place] ACTIVATED CLOTTING TIME 508 sec High 82-152 [facility] Comment on above: Performed By: #### 8 5123, 68630 #### [facility] [address] [place] [address], [place] ACTIVATED CLOTTING TIME 610 sec High 82-152 [facility] Comment on above: Performed By: #### 8 5123, 68753 #### [facility] [address] [place] [address], [place] ACTIVATED CLOTTING TIME 621 sec High 82-152 [facility] Comment on above: Performed By: #### 8 5123, 26667 #### [facility] [address] [place] [address], [place] ACTIVATED CLOTTING TIME 660 sec High 82-152 [facility] Comment on above: Performed By: #### 8 5123, 39851 #### [facility] [address] [place] [address], [place] ACTIVATED CLOTTING TIME 508 sec High 82-152 [facility] Comment on above: Performed By: #### 8 5123, 90483 #### [facility] [address] [place] [address], [place] ACTIVATED CLOTTING TIME 514 sec High 82-152 [facility] Comment on above: Performed By: #### 0 0121, 14612, 13944, 08932, 83546 #### [facility] [address] [place] [address], [place] ACTIVATED CLOTTING TIME 514 sec High 82-152 [facility] Comment on above: Performed By: #### 0 0121, 26341, 42497, 49884, 42599 #### [facility] [address] [place] [address], [facility] ACTIVATED CLOTTING TIME 502 sec High 82-152 [facility] Comment on above: Performed By: #### 0 0121, 88522, 53748, 29837, 94576 #### [facility] [address] [place] [address], [place] ACTIVATED CLOTTING TIME 473 sec High 82-152 [facility] Comment on above: Performed By: #### 0 0121, 01970, 55211, 72629, 55608 #### [facility] [address] [place] [address], [place] ACTIVATED CLOTTING TIME 508 sec High 82-152 [facility] Comment on above: Performed By: #### 0 0121, 23933, 73581, 17186, 79055 #### [facility] [address] [place] [address], [facility] ACTIVATED CLOTTING TIME 115 sec Normal 82-152 [facility] Comment on above: Performed By: #### 0 0121, 71862, 09981, 56318, 49664 #### [facility] [address] [place] [id number], [facility] APTTon 03-19-2019 aPTT Coag (Bld) [Time] 28.6 s Normal 25.0-35.0 [facility] Comment on above: Result Comment: ALL RESULTS [...] THIS PURPOSE. Performed By: #### 8 5123, 56193 #### [facility] [address] [place] [address], [facility] aPTT Coag (Bld) [Time] 33.6 s Normal 25.0-35.0 [facility] Comment on above: Order Comment: If [...] THIS PURPOSE. Performed By: #### 0 0121, 95247, 58225, 14632, 34042 #### [facility] [address] [place] [address], [facility] ARTERIAL BLOOD GAS W/COOXon 03-19-2019 BASE EXCESS -8 mmol/L Low -2-3 [facility] Comment on above: Performed By: #### 8 4511, 49700 ####[facility] [place] [address], [facility] COHB 2.6 % High 0.0-1.5 [facility] Comment on above: Performed By: #### 8 4511, 29114 ####[facility] [facility] [place] [address], [facility] DELIVERY SYSTEMS VENT Normal [facility] Comment on above: Performed By: #### 8 4511, 83041 ####[facility] [facility] [place] [address], [facility] FIO2 100 % Normal [facility] Comment on above: Performed By: #### 8 4511, 99094 ####[facility] [place] [address], [facility] HCO3 (Bld) [Moles/Vol] 19 mmol/L Low 21-28 [facility] Comment on above: Performed By: #### 8 4511, 90995 ####[facility] [place] [address], [facility] METHB 0.8 % Normal 0.0-1.5 [facility] Comment on above: Performed By: #### 8 4511, 16005 ####[facility] [place] [address], [facility] MIN VOLUME 11.6 Normal [facility] Comment on above: Performed By: #### 8 4511, 43880 ####[facility] [place] [address], [place] MODALITY AC Normal [facility] Comment on above: Performed By: #### 8 4511, 43951 ####[facility] [place] [address], [place] Oxygen (Bld) [Partial pressure] 61 mm[Hg] Low 83-108 [facility] Comment on above: Performed By: #### 8 451, 03542 ####[facility] [place] [address], [facility] Oxygen saturation in Blood 88.9 % Low 94.0-97.0 [facility] Comment on above: Performed By: #### 8 451, 77679 ####[facility] [place] [address], [facility] PCO2 43 mmHg Normal 35-45 [facility] Comment on above: Performed By: #### 8 434, 23102 ####[facility] [place] [address], [facility] PEEP 10.0 CMH20 Normal [facility] Comment on above: Performed By: #### 8 4511, 25233 ####[facility] [place] [address], [place] pH (Bld) 7.26 [pH] Low 7.35-7.45 [facility] Comment on above: Result Comment: KINJAL SE NOTE: Effective 12/02/18, reference ranges for Respiratory GEM analyzers running arterial blood have been updated to reflect the cocktail lounge manager's published reference ranges. Performed By: #### 8 3681, 83074 ####[facility] [place] [address], [facility] THB 14.2 g/dL Normal 12.0-16.3 [facility] Comment on above: Performed By: #### 8 4511, 55706 ####[facility] [place] [address], [facility] TIDAL VOLUME (VT) CC 700 cc Normal [facility] Comment on above: Performed By: #### 8 4511, 06116 ####[facility] [place] [address], [facility] ARTERIAL BLOOD GAS WITH ICAo n 03-19-2019 BASE EXCESS -4 mmol/L Low -2-3 [facility] Comment on above: Performed By: #### 5 7307 #### [facility] [address] [place] [address], [facility] DELIVERY [employer] MV Normal [facility] Comment on above: Performed By: #### 5 7307 #### [facility] [address] [place] [address], [facility] FIO2 100 % Normal [facility] Comment on above: Performed By: #### 5 7307 #### [facility] [address] [place] [address], [facility] HCO3 (Bld) [Moles/Vol] 20 mmol/L Low 21-28 [facility] Comment on above: Performed By: #### 5 7307 #### [facility] [address] [place] [address], [place] IONIZED CALCIUM 1.21 mmol/L Normal 1.13-1.32 [facility] Comment on above: Performed By: #### 5 7307 #### [facility] [address] [place] [address], [place] MIN VOLUME 13.6 Normal [facility] Comment on above: Performed By: #### 5 7307 #### [facility] [address] [place] [address], [place] MODALITY AC Normal [facility] Comment on above: Performed By: #### 5 7307 #### [facility] [address] [place] [address], [place] Oxygen (Bld) [Partial pressure] 74 mm[Hg] Low 83-108 [facility] Comment on above: Performed By: #### 5 7307 #### [facility] [address] [place] [address], [place] Oxygen saturation in Blood 93.5 % Low 94.0-97.0 [facility] Comment on above: Performed By: #### 5 7307 #### [facility] [address] [place] [address], [place] PCO2 33 mmHg Low 35-45 [facility] Comment on above: Performed By: #### 5 7307 #### [facility] [address] [place] [address], [place] PEEP 10.0 CMH20 Normal [facility] Comment on above: Performed By: #### 5 7307 #### [facility] [address] [place] [address], [place] PF RATIO 74 mmHg Normal [facility] Comment on above: Performed By: #### 5 7307 #### [facility] [address] [place] [address], [place] pH (Bld) 7.39 [pH] Normal 7.35-7.45 [facility] Comment on above: Result Comment: KINJAL REYNOSO NOTE: Effective 12/02/18, reference ranges for Respiratory GEM analyzers running arterial blood have been updated to reflect the cocktail lounge manager's published reference ranges. Performed By: #### 5 7307 #### [facility] [address] [place] [address], [place] TIDAL VOLUME (VT) CC 700 cc Normal [facility] Comment on above: Performed By: #### 5 7307 #### [facility] [address] [place] [address], [facility] BASE EXCESS -7 mmol/L Low -2-3 [facility] Comment on above: Order Comment: R/O P ulmonary Edema Performed By: #### 8 6021, 56129 ####[facility] [place] [address], [facility] [employer] MV Normal [facility] Comment on above: Order Comment: R/O P ulmonary Edema Performed By: #### 8 4511, 18307 ####[facility] [place] [address], [facility] FIO2 100 % Normal [facility] Comment on above: Order Comment: R/O P ulmonary Edema Performed By: #### 8 327, 94322 ####[facility] [facility] [address], [facility] HCO3 (Bld) [Moles/Vol] 21 mmol/L Normal 21-28 [facility] Comment on above: Order Comment: R/O P ulmonary Edema Performed By: #### 8 5511, 28809 ####[facility] [place] [address], [facility] IONIZED CALCIUM 1.36 mmol/L High 1.13-1.32 [facility] Comment on above: Order Comment: R/O P ulmonary Edema Performed By: #### 8 5701, 91808 ####[facility] [place] [address], [facility] MIN VOLUME 13.0 Normal [facility] Comment on above: Order Comment: R/O P ulmonary Edema Performed By: #### 8 6821, 17896 ####[facility] [place] [address], [facility] MODALITY SIMV Normal [facility] Comment on above: Order Comment: R/O P ulmonary Edema Performed By: #### 8 6261, 90159 ####[facility] [place] [address], [facility] Oxygen (Bld) [Partial pressure] 63 mm[Hg] Low 83-108 [facility] Comment on above: Order Comment: R/O P ulmonary Edema Performed By: #### 8 0151, 38455 ####[facility] [place] [address], [facility] Oxygen saturation in Blood 89.3 % Low 94.0-97.0 [facility] Comment on above: Order Comment: R/O P ulmonary Edema Performed By: #### 8 8091, 50319 ####[facility] [place] [address], [facility] PCO2 46 mmHg High 35-45 [facility] Comment on above: Order Comment: R/O P ulmonary Edema Performed By: #### 8 7381, 37387 ####[facility] [place] [address], [place] PEEP 8.0 CMH20 Normal [facility] Comment on above: Order Comment: R/O P ulmonary Edema Performed By: #### 8 9551, 93715 ####[facility] [place] [address], [place] PF RATIO 63 mmHg Normal [facility] Comment on above: Order Comment: R/O P ulmonary Edema Performed By: #### 8 4911, 20897 ####[facility] [place] [address], [place] pH (Bld) 7.26 [pH] Low 7.35-7.45 [facility] Comment on above: Order Comment: R/O P ulmonary Edema Result Comment: KINJAL REYNOSO NOTE: Effective 12/02/18, reference ranges for Respiratory GEM analyzers running arterial blood have been updated to reflect the cocktail lounge manager's published reference ranges. Performed By: #### 8 4511, 41746 ####[facility] [place] [address], [facility] PRESSURE SUPPORT 5 Normal [facility] Comment on above: Order Comment: R/O P ulmonary Edema Performed By: #### 8 4511, 29095 ####[facility] [place] [address], [place] TIDAL VOLUME (VT) CC 600 cc Normal [facility] Comment on above: Order Comment: R/O P ulmonary Edema Performed By: #### 8 4511, 40707 ####[facility] [place] [address], [facility] BASIC METABOLIC PANELon 06-2 -2018 Calcium [Mass/Vol] 8.6 mg/dL Normal 8.6-10.3 [facility] Comment on above: Order Comment: No: D o not add to previous draw Performed By: #### 5 7307 #### [facility] [address] [place] [address], [place] Chloride [Moles/Vol] 113 mmol/L High 98-107 [facility] Comment on above: Order Comment: No: D o not add to previous draw Performed By: #### 5 7307 #### [facility] [address] [place] [address], [place] CO2 [Moles/Vol] 21 mmol/L Normal 21-31 [facility] Comment on above: Order Comment: No: D o not add to previous draw Performed By: #### 5 7307 #### [facility] [address] [place] [address], [place] Creatinine [Mass/Vol] 1.14 mg/dL Normal 0.70-1.30 [facility] Comment on above: Order Comment: No: D o not add to previous draw Performed By: #### 5 7307 #### [facility] [address] [place] [address], [place] GFR/1.73 sq M predicted among blacks MDRD (S/P/Bld) [Vol rate/Area] mL/min/{1.73_m2} Normal >60 [facility] Comment on above: Order Comment: No: D o not add to previous draw Performed By: #### 5 7307 #### [facility] [address] [place] [address], [place] GFR/1.73 sq M predicted among non-blacks MDRD (S/P/Bld) [Vol rate/Area] mL/min/{1.73_m2} Normal >60 [facility] Comment on above: Order Comment: No: D o not add to previous draw Performed By: #### 5 7307 #### [facility] [address] [place] [address], [place] Glucose [Mass/Vol] 164 mg/dL High 70-100 [facility] Comment on above: Order Comment: No: D o not add to previous draw Performed By: #### 5 7307 #### [facility] [address] [place] [address], [place] Potassium [Moles/Vol] 4.3 mmol/L Normal 3.5-5.1 [facility] Comment on above: Order Comment: No: D o not add to previous draw Performed By: #### 5 7307 #### [facility] [address] [place] [address], [place] Sodium [Moles/Vol] 142 mmol/L Normal 136-145 [facility] Comment on above: Order Comment: No: D o not add to previous draw Performed By: #### 5 7307 #### [facility] [address] [place] [address], [place] Urea nitrogen [Mass/Vol] 19 mg/dL Normal 7-25 [facility] Comment on above: Order Comment: No: D o not add to previous draw Performed By: #### 5 7307 #### [facility] [address] [place] [address], [place] Calcium [Mass/Vol] 9.8 mg/dL Normal 8.6-10.3 [facility] Comment on above: Order Comment: If no t done in ED No: Do not add to previous draw Performed By: #### 8 5123, 83102 #### [facility] [address] [place] [address], [place] Chloride [Moles/Vol] 112 mmol/L High 98-107 [facility] Comment on above: Order Comment: If no t done in ED No: Do not add to previous draw Performed By: #### 8 5123, 80212 #### [facility] [address] [place] [address], [place] CO2 [Moles/Vol] 21 mmol/L Normal 21-31 [facility] Comment on above: Order Comment: If no t done in ED No: Do not add to previous draw Performed By: #### 8 5123, 33463 #### [facility] [address] [place] [address], [place] Creatinine [Mass/Vol] 1.07 mg/dL Normal 0.70-1.30 [facility] Comment on above: Order Comment: If no t done in ED No: Do not add to previous draw Performed By: #### 8 5123, 81522 #### [facility] [address] [place] [address], [place] GFR/1.73 sq M predicted among blacks MDRD (S/P/Bld) [Vol rate/Area] mL/min/{1.73_m2} Normal >60 [facility] Comment on above: Order Comment: If no t done in ED No: Do not add to previous draw Performed By: #### 8 5123, 84474 #### [facility] [address] [place] [address], [place] GFR/1.73 sq M predicted among non-blacks MDRD (S/P/Bld) [Vol rate/Area] mL/min/{1.73_m2} Normal >60 [facility] Comment on above: Order Comment: If no t done in ED No: Do not add to previous draw Performed By: #### 8 5123, 66921 #### [facility] [address] [place] [address], [place] Glucose [Mass/Vol] 147 mg/dL High 70-100 [facility] Comment on above: Order Comment: If no t done in ED No: Do not add to previous draw Performed By: #### 8 5123, 46772 #### [facility] [address] [place] [address], [place] Potassium [Moles/Vol] 3.9 mmol/L Normal 3.5-5.1 [facility] Comment on above: Order Comment: If no t done in ED No: Do not add to previous draw Performed By: #### 8 5123, 83198 #### [facility] [address] [place] [address], [place] Sodium [Moles/Vol] 142 mmol/L Normal 136-145 [facility] Comment on above: Order Comment: If no t done in ED No: Do not add to previous draw Performed By: #### 8 5123, 33673 #### [facility] [address] [place] [address], [place] Urea nitrogen [Mass/Vol] 19 mg/dL Normal 7-25 [facility] Comment on above: Order Comment: If no t done in ED No: Do not add to previous draw Performed By: #### 8 5123, 37710 #### [facility] [address] [place] [address], [place] Calcium [Mass/Vol] 9.5 mg/dL Normal 8.6-10.3 [facility] Comment on above: Order Comment: If no t done in ED No: Do not add to previous draw Performed By: #### 0 0121, 06242, 18056, 04753, 27591 #### [facility] [address] [place] [address], [facility] Chloride [Moles/Vol] 105 mmol/L Normal 98-107 [facility] Comment on above: Order Comment: If no t done in ED No: Do not add to previous draw Performed By: #### 0 0121, 68629, 52368, 14205, 24746 #### [facility] [address] [place] [address], [place] CO2 [Moles/Vol] 24 mmol/L Normal 21-31 [facility] Comment on above: Order Comment: If no t done in ED No: Do not add to previous draw Performed By: #### 0 0121, 70417, 13662, 64601, 56987 #### [facility] [address] [place] [address], [place] Creatinine [Mass/Vol] 1.11 mg/dL Normal 0.70-1.30 [facility] Comment on above: Order Comment: If no t done in ED No: Do not add to previous draw Performed By: #### 0 0121, 27756, 46785, 48083, 00516 #### [facility] [address] [place] [address], [place] GFR/1.73 sq M predicted among blacks MDRD (S/P/Bld) [Vol rate/Area] mL/min/{1.73_m2} Normal >60 [facility] Comment on above: Order Comment: If no t done in ED No: Do not add to previous draw Performed By: #### 0 0121, 84322, 73571, 93128, 38795 #### [facility] [address] [place] [address], [place] GFR/1.73 sq M predicted among non-blacks MDRD (S/P/Bld) [Vol rate/Area] mL/min/{1.73_m2} Normal >60 [facility] Comment on above: Order Comment: If no t done in ED No: Do not add to previous draw Performed By: #### 0 0121, 44953, 12431, 06051, 82365 #### [facility] [address] [place] [address], [place] Glucose [Mass/Vol] 89 mg/dL Normal 70-100 [facility] Comment on above: Order Comment: If no t done in ED No: Do not add to previous draw Performed By: #### 0 0121, 39045, 43173, 48145, 05171 #### [facility] [address] [place] [address], [facility] Potassium [Moles/Vol] 4.2 mmol/L Normal 3.5-5.1 [facility] Comment on above: Order Comment: If no t done in ED No: Do not add to previous draw Performed By: #### 0 0121, 37565, 86254, 83411, 18250 #### [facility] [address] [place] [address], [facility] Sodium [Moles/Vol] 135 mmol/L Low 136-145 [facility] Comment on above: Order Comment: If no t done in ED No: Do not add to previous draw Performed By: #### 0 0121, 37217, 51251, 64644, 25373 #### [facility] [address] [place] [address], [place] Urea nitrogen [Mass/Vol] 17 mg/dL Normal 7-25 [facility] Comment on above: Order Comment: If no t done in ED No: Do not add to previous draw Performed By: #### 0 0121, 29296, 73374, 20643, 33984 #### [facility] [address] [place] [address], [place] CBC COMPLETE BLOOD COUNTon 0 03-19-2019 Erythrocyte distribution width (RBC) [Ratio] 13.0 % Normal 11.5-15.0 [facility] Comment on above: Order Comment: No: D o not add to previous draw Performed By: #### 5 7307 #### [facility] [address] [place] [address], [facility] Hematocrit (Bld) [Volume fraction] 42.7 % Normal 39.0-50.0 [facility] Comment on above: Order Comment: No: D o not add to previous draw Performed By: #### 5 7307 #### [facility] [address] [place] [address], [facility] Hemoglobin (Bld) [Mass/Vol] 14.3 g/dL Normal 13.0-17.0 [facility] Comment on above: Order Comment: No: D o not add to previous draw Performed By: #### 5 7307 #### [facility] [address] [place] [address], [facility] MCH (RBC) [Entitic mass] 29.4 pg Normal 27.0-33.0 [facility] Comment on above: Order Comment: No: D o not add to previous draw Performed By: #### 5 7307 #### [facility] [address] [place] [address], [facility] MCHC (RBC) [Mass/Vol] 33.5 g/dL Normal 32.0-35.0 [facility] Comment on above: Order Comment: No: D o not add to previous draw Performed By: #### 5 7307 #### [facility] [address] [place] [address], [facility] MCV (RBC) [Entitic vol] 87.9 fL Normal 82.0-98.0 [facility] Comment on above: Order Comment: No: D o not add to previous draw Performed By: #### 5 7307 #### [facility] [address] [place] [id number], [facility] Nucleated RBC/100 WBC (Bld) [Ratio] 0 % Normal 0-0 [facility] Comment on above: Order Comment: No: D o not add to previous draw Performed By: #### 5 7307 #### [facility] [address] [place] [address], [facility] PLAT CNT 179 10*3/uL Normal 150-400 [facility] Comment on above: Order Comment: No: D o not add to previous draw Performed By: #### 5 7307 #### [facility] [address] [place] [address], [facility] RBC (Bld) [#/Vol] 4.86 10*6/uL Normal 4.20-5.70 [facility] Comment on above: Order Comment: No: D o not add to previous draw Performed By: #### 5 7307 #### [facility] [address] [place] [address], [facility] WBC (Bld) [#/Vol] 26.36 10*3/uL High 4.00-10.60 [facility] Comment on above: Order Comment: No: D o not add to previous draw Performed By: #### 5 7307 #### [facility] [address] [place] [address], [facility] Erythrocyte distribution width (RBC) [Ratio] 13.0 % Normal 11.5-15.0 [facility] Comment on above: Order Comment: R/O P ulmonary Edema Performed By: #### 5 0608 ####[facility] [place] [address], [facility] Hematocrit (Bld) [Volume fraction] 47.1 % Normal 39.0-50.0 [facility] Comment on above: Order Comment: R/O P ulmonary Edema Performed By: #### 5 0608 ####[facility] [facility] [address], [facility] Hemoglobin (Bld) [Mass/Vol] 15.0 g/dL Normal 13.0-17.0 [facility] Comment on above: Order Comment: R/O P ulmonary Edema Performed By: #### 5 0608 ####[facility] [place] [address], [facility] MCH (RBC) [Entitic mass] 29.4 pg Normal 27.0-33.0 [facility] Comment on above: Order Comment: R/O P ulmonary Edema Performed By: #### 5 0608 ####[facility] [place] [address], [facility] MCHC (RBC) [Mass/Vol] 31.8 g/dL Low 32.0-35.0 [facility] Comment on above: Order Comment: R/O P ulmonary Edema Performed By: #### 5 0608 ####[facility] [place] [address], [facility] MCV (RBC) [Entitic vol] 92.4 fL Normal 82.0-98.0 [facility] Comment on above: Order Comment: R/O P ulmonary Edema Performed By: #### 5 0608 ####[facility] Nucleated RBC/100 WBC (Bld) [Ratio] 0 % Normal 0-0 [facility] Comment on above: Order Comment: R/O P ulmonary Edema Performed By: #### 5 0608 ####[facility] [place] [address], [facility] PLAT CNT 188 10*3/uL Normal 150-400 [facility] Comment on above: Order Comment: R/O P ulmonary Edema Performed By: #### 5 0608 ####[facility] [place] [address], [facility] RBC (Bld) [#/Vol] 5.10 10*6/uL Normal 4.20-5.70 [facility] Comment on above: Order Comment: R/O P ulmonary Edema Performed By: #### 5 0608 ####[facility] [place] [address], [facility] WBC (Bld) [#/Vol] 31.20 10*3/uL High 4.00-10.60 [facility] Comment on above: Order Comment: R/O P ulmonary Edema Performed By: #### 5 0608 ####[facility] Erythrocyte distribution width (RBC) [Ratio] 13.0 % Normal 11.5-15.0 [facility] Comment on above: Order Comment: If no t done in ED No: Do not add to previous draw Performed By: #### 8 5123, 44758 #### [facility] [address] [place] [address], [facility] Hematocrit (Bld) [Volume fraction] 44.2 % Normal 39.0-50.0 [facility] Comment on above: Order Comment: If no t done in ED No: Do not add to previous draw Performed By: #### 8 5123, 06431 #### [facility] [address] [place] [id number], [facility] Hemoglobin (Bld) [Mass/Vol] 14.4 g/dL Normal 13.0-17.0 [facility] Comment on above: Order Comment: If no t done in ED No: Do not add to previous draw Performed By: #### 8 5123, 52486 #### [facility] [address] [place] [id number], [facility] MCH (RBC) [Entitic mass] 28.8 pg Normal 27.0-33.0 [facility] Comment on above: Order Comment: If no t done in ED No: Do not add to previous draw Performed By: #### 8 5123, 74397 #### [facility] [address] [place] [id number], [place] MCHC (RBC) [Mass/Vol] 32.6 g/dL Normal 32.0-35.0 [facility] Comment on above: Order Comment: If no t done in ED No: Do not add to previous draw Performed By: #### 8 5123, 18468 #### [facility] [address] [place] [id number], [facility] MCV (RBC) [Entitic vol] 88.4 fL Normal 82.0-98.0 [facility] Comment on above: Order Comment: If no t done in ED No: Do not add to previous draw Performed By: #### 8 5123, 66356 #### [facility] [address] [place] [address], [facility] Nucleated RBC/100 WBC (Bld) [Ratio] 0 % Normal 0-0 [facility] Comment on above: Order Comment: If no t done in ED No: Do not add to previous draw Performed By: #### 8 5123, 97515 #### [facility] [address] [place] [address], [facility] PLAT CNT 166 10*3/uL Normal 150-400 [facility] Comment on above: Order Comment: If no t done in ED No: Do not add to previous draw Performed By: #### 8 5123, 33268 #### [facility] [address] [place] [address], [facility] RBC (Bld) [#/Vol] 5.00 10*6/uL Normal 4.20-5.70 [facility] Comment on above: Order Comment: If no t done in ED No: Do not add to previous draw Performed By: #### 8 5123, 40873 #### [facility] [address] [place] [address], [place] WBC (Bld) [#/Vol] 33.13 10*3/uL High 4.00-10.60 [facility] Comment on above: Order Comment: If no t done in ED No: Do not add to previous draw Performed By: #### 8 5123, 19425 #### [facility] [address] [place] [address], [place] Erythrocyte distribution width (RBC) [Ratio] 13.0 % Normal 11.5-15.0 [facility] Comment on above: Order Comment: If no t done in ED No: Do not add to previous draw Performed By: #### 0 0121, 26348, 04187, 03780, 22558 #### [facility] [address] [place] [address], [place] Hematocrit (Bld) [Volume fraction] 55.7 % High 39.0-50.0 [facility] Comment on above: Order Comment: If no t done in ED No: Do not add to previous draw Performed By: #### 0 0121, 83482, 11103, 00458, 40906 #### [facility] [address] [place] [address], [facility] Hemoglobin (Bld) [Mass/Vol] 18.2 g/dL High 13.0-17.0 [facility] Comment on above: Order Comment: If no t done in ED No: Do not add to previous draw Performed By: #### 0 0121, 17168, 68373, 92213, 65452 #### [facility] [address] [place] [address], [facility] MCH (RBC) [Entitic mass] 28.6 pg Normal 27.0-33.0 [facility] Comment on above: Order Comment: If no t done in ED No: Do not add to previous draw Performed By: #### 0 0121, 90841, 62593, 12609, 80248 #### [facility] [address] [place] [address], [place] MCHC (RBC) [Mass/Vol] 32.7 g/dL Normal 32.0-35.0 [facility] Comment on above: Order Comment: If no t done in ED No: Do not add to previous draw Performed By: #### 0 0121, 56406, 49179, 03944, 50344 #### [facility] [address] [place] [address], [facility] MCV (RBC) [Entitic vol] 87.4 fL Normal 82.0-98.0 [facility] Comment on above: Order Comment: If no t done in ED No: Do not add to previous draw Performed By: #### 0 0121, 23634, 87049, 38839, 06948 #### [facility] [address] [place] [id number], [place] Nucleated RBC/100 WBC (Bld) [Ratio] 0 % Normal 0-0 [facility] Comment on above: Order Comment: If no t done in ED No: Do not add to previous draw Performed By: #### 0 0121, 23740, 51358, 54557, 17607 #### [facility] [address] [place] [id number], [place] PLAT CNT 288 10*3/uL Normal 150-400 [facility] Comment on above: Order Comment: If no t done in ED No: Do not add to previous draw Performed By: #### 0 0121, 46890, 44187, 28964, 60389 #### [facility] [address] [place] [address], [facility] RBC (Bld) [#/Vol] 6.37 10*6/uL High 4.20-5.70 [facility] Comment on above: Order Comment: If no t done in ED No: Do not add to previous draw Performed By: #### 0 0121, 24468, 32426, 72371, 26336 #### [facility] [address] [place] [address], [place] WBC (Bld) [#/Vol] 11.26 10*3/uL High 4.00-10.60 [facility] Comment on above: Order Comment: If no t done in ED No: Do not add to previous draw Performed By: #### 0 0121, 93346, 58416, 25377, 65546 #### [facility] [address] COMP METABOLIC PANELon 03-19 Albumin [Mass/Vol] 3.8 g/dL Normal 3.5-5.7 [facility] Comment on above: Order Comment: R/O P ulmonary Edema Performed By: #### 0 0121, 97322, 74967 ####[facility] [place] [address], [facility] ALKALINE PHOSPH 30 IU/L Low 34-104 [facility] Comment on above: Order Comment: R/O P ulmonary Edema Performed By: #### 0 0121, 25496, 64612 ####[facility] [facility] ALT [Catalytic activity/Vol] 37 U/L Normal 7-52 [facility] Comment on above: Order Comment: R/O P ulmonary Edema Performed By: #### 0 0121, 30338, 90619 ####[facility] AST [Catalytic activity/Vol] 154 U/L High 13-39 [facility] Comment on above: Order Comment: R/O P ulmonary Edema Performed By: #### 0 0121, 12211, 25364 ####[facility] [place] [address], [facility] Bilirubin [Mass/Vol] 1.9 mg/dL High 0.3-1.0 [facility] Comment on above: Order Comment: R/O P ulmonary Edema Performed By: #### 0 0121, 24437, 38097 ####[facility] [place] [address], [facility] Calcium [Mass/Vol] 8.9 mg/dL Normal 8.6-10.3 [facility] Comment on above: Order Comment: R/O P ulmonary Edema Performed By: #### 0 0121, 80855, 54096 ####[facility] [place] [address], [facility] Chloride [Moles/Vol] 113 mmol/L High 98-107 [facility] Comment on above: Order Comment: R/O P ulmonary Edema Performed By: #### 0 0121, 14862, 38035 ####[facility] [place] [address], [facility] CO2 [Moles/Vol] 13 mmol/L Critically low 21-31 [facility] Comment on above: Order Comment: R/O P ulmonary Edema Result Comment: M-CR ITICAL RESULT(S) REVIEWED, CALLED TO AND READ BACK BY PEDRO CEDENO @[facility] 03.19.19 Performed By: #### 0 0121, 92100, 65269 ####[facility] [place] [address], [facility] Creatinine [Mass/Vol] 1.11 mg/dL Normal 0.70-1.30 [facility] Comment on above: Order Comment: R/O P ulmonary Edema Performed By: #### 0 0121, 36603, 50553 ####[facility] [place] [address], [facility] GFR/1.73 sq M predicted among blacks MDRD (S/P/Bld) [Vol rate/Area] mL/min/{1.73_m2} Normal >60 [facility] Comment on above: Order Comment: R/O P ulmonary Edema Performed By: #### 0 0121, 06033, 11504 ####[facility] [place] [address], [facility] GFR/1.73 sq M predicted among non-blacks MDRD (S/P/Bld) [Vol rate/Area] mL/min/{1.73_m2} Normal >60 [facility] Comment on above: Order Comment: R/O P ulmonary Edema Performed By: #### 0 0121, 19352, 45097 ####[facility] [place] [address], [facility] Glucose [Mass/Vol] 132 mg/dL High 70-100 [facility] Comment on above: Order Comment: R/O P ulmonary Edema Performed By: #### 0 0121, 61371, 60897 ####[facility] [place] [address], [facility] Potassium [Moles/Vol] 4.4 mmol/L Normal 3.5-5.1 [facility] Comment on above: Order Comment: R/O P ulmonary Edema Performed By: #### 0 0121, 22636, 17216 ####[facility] [place] [address], [facility] Protein [Mass/Vol] 5.6 g/dL Low 6.0-8.3 [facility] Comment on above: Order Comment: R/O P ulmonary Edema Performed By: #### 0 0121, 03133, 90086 ####[facility] [facility] [place] [address], [facility] Sodium [Moles/Vol] 140 mmol/L Normal 136-145 [facility] Comment on above: Order Comment: R/O P ulmonary Edema Performed By: #### 0 0121, 99428, 19480 ####[facility] [facility] [place] [address], [facility] Urea nitrogen [Mass/Vol] 18 mg/dL Normal 7-25 [facility] Comment on above: Order Comment: R/O P ulmonary Edema Performed By: #### 0 0121, 01051, 57901 ####[facility] [facility] [place] [address], [facility] COOXIMETRYon 03-19-2019 COHB 2 % Normal [facility] Comment on above: Order Comment: No: D o not add to previous draw Performed By: #### 5 7307 #### [facility] [address] [place] [address], [place] METHB 1 % Normal [facility] Comment on above: Order Comment: No: D o not add to previous draw Performed By: #### 5 7307 #### [facility] [address] [place] [address], [place] Oxygen saturation in Blood 66.9 % Normal 65.0-75.0 [facility] Comment on above: Order Comment: No: D o not add to previous draw Performed By: #### 5 7307 #### [facility] [address] [place] [address], [place] THB 13.1 g/dL Normal [facility] Comment on above: Order Comment: No: D o not add to previous draw Performed By: #### 5 7307 #### [facility] [address] [place] [address], [place] COHB 2 % Normal [facility] Comment on above: Performed By: #### 7 0207 ####[facility] [place] [address], [place] METHB 1 % Normal [facility] Comment on above: Performed By: #### 7 0207 ####[facility] [place] [address], [place] Oxygen saturation in Blood 59.2 % Low 65.0-75.0 [facility] Comment on above: Performed By: #### 7 0207 ####[facility] [place] [address], [place] THB 14.0 g/dL Normal [facility] Comment on above: Performed By: #### 7 0207 ####[facility] [place] [address], [place] LACTATE BLOODon 03-19-2019 Lactate [Moles/Vol] 2.6 mmol/L Critically high 0.5-2.2 [facility] Comment on above: Order Comment: No: D o not add to previous draw Result Comment: M-CR ITICAL RESULT(S) REVIEWED, CALLED TO AND READ BACK BY PEDRO MONTANO @2136 03.19.19 Performed By: #### 5 7307 #### [facility] [address] [place] [address], [place] MAGNESIUM BLOODon 03-19-2019 Magnesium [Mass/Vol] 2.4 mg/dL Normal 1.9-2.7 [facility] Comment on above: Order Comment: No: D o not add to previous draw Performed By: #### 5 7307 #### [facility] [facility] [address] [place] [address], [place] Magnesium [Mass/Vol] 2.7 mg/dL Normal 1.9-2.7 [facility] Comment on above: Order Comment: R/O P ulmonary Edema Performed By: #### 0 0121, 66316, 56879 ####[facility] [place] [address], [place] Magnesium [Mass/Vol] 2.9 mg/dL High 1.9-2.7 [facility] Comment on above: Performed By: #### 8 5123, 23261 #### [facility] [address] [place] [address], [place] PERFUSION BLOOD PANELon 03-01 BASE EXCESS -4.0 mmol/L Low -2.0-3.0 [facility] Comment on above: Performed By: #### 8 5123, 19969 #### [facility] [address] [place] [address], [place] Glucose [Mass/Vol] 143 mg/dL High 70-105 [facility] Comment on above: Performed By: #### 8 5123, 96584 #### [facility] [address] [place] [address], [place] Hematocrit (Bld) [Volume fraction] 39 % Normal 38-51 [facility] Comment on above: Performed By: #### 8 5123, 72020 #### [facility] [address] [place] [address], [place] Hemoglobin (Bld) [Mass/Vol] 13.3 g/dL Normal 12.0-17.0 [facility] Comment on above: Performed By: #### 8 512, 36796 #### [facility] [address] [place] [address], [place] IONIZED CALCIUM 1.58 mmol/L Critically high 1.12-1.32 [facility] Comment on above: Performed By: #### 8 512, 33127 #### [facility] [address] [place] [address], [facility] Oxygen (Bld) [Partial pressure] 59.0 mm[Hg] Low 80.0-105.0 [facility] Comment on above: Performed By: #### 8 512, 91613 #### [facility] [address] [place] [address], [place] PCO2 35.4 mmHg Normal 35.0-45.0 [facility] Comment on above: Performed By: #### 8 512, 78523 #### [facility] [address] [place] [address], [place] pH (Bld) 7.37 [pH] Normal 7.35-7.45 [facility] Comment on above: Performed By: #### 8 512, 34770 #### [facility] [address] [place] [address], [place] Potassium [Moles/Vol] 3.7 mmol/L Normal 3.5-4.9 [facility] Comment on above: Performed By: #### 8 5123, 17969 #### [facility] [address] [place] [address], [place] Sodium [Moles/Vol] 144 mmol/L Normal 138-146 [facility] Comment on above: Performed By: #### 8 5123, 90352 #### [facility] [address] [place] [address], [facility] BASE EXCESS -5.0 mmol/L Low -2.0-3.0 [facility] Comment on above: Performed By: #### 8 5123, 82019 #### [facility] [address] [place] [address], [place] Glucose [Mass/Vol] 158 mg/dL High 70-105 [facility] Comment on above: Performed By: #### 8 512, 28459 #### [facility] [address] [place] [address], [facility] Hematocrit (Bld) [Volume fraction] 41 % Normal 38-51 [facility] Comment on above: Performed By: #### 8 512, 50657 #### [facility] [address] [place] [address], [facility] Hemoglobin (Bld) [Mass/Vol] 13.9 g/dL Normal 12.0-17.0 [facility] Comment on above: Performed By: #### 8 5123, 88159 #### [facility] [address] [place] [address], [facility] IONIZED CALCIUM 1.34 mmol/L High 1.12-1.32 [facility] Comment on above: Performed By: #### 8 5123, 43837 #### [facility] [address] [place] [address], [facility] Oxygen (Bld) [Partial pressure] 51.0 mm[Hg] Low 80.0-105.0 [facility] Comment on above: Performed By: #### 8 5123, 71995 #### [facility] [address] [place] [address], [facility] PCO2 34.5 mmHg Low 35.0-45.0 [facility] Comment on above: Performed By: #### 8 512, 27945 #### [facility] [address] [place] [address], [facility] pH (Bld) 7.36 [pH] Normal 7.35-7.45 [facility] Comment on above: Performed By: #### 8 512, 86462 #### [facility] [address] [place] [address], [place] Potassium [Moles/Vol] 4.2 mmol/L Normal 3.5-4.9 [facility] Comment on above: Performed By: #### 8 512, 22564 #### [facility] [address] [place] [address], [place] Sodium [Moles/Vol] 142 mmol/L Normal 138-146 [facility] Comment on above: Performed By: #### 8 512, 56112 #### [facility] [address] [place] [id number], [facility] BASE EXCESS -1.0 mmol/L Normal -2.0-3.0 [facility] Comment on above: Performed By: #### 8 512, 45597 #### [facility] [address] [place] [address], [place] Glucose [Mass/Vol] 163 mg/dL High 70-105 [facility] Comment on above: Performed By: #### 8 512, 02951 #### [facility] [address] [place] [address], [facility] Hematocrit (Bld) [Volume fraction] 42 % Normal 38-51 [facility] Comment on above: Performed By: #### 8 5123, 86179 #### [facility] [address] [place] [address], [place] Hemoglobin (Bld) [Mass/Vol] 14.3 g/dL Normal 12.0-17.0 [facility] Comment on above: Performed By: #### 8 5123, 00760 #### [facility] [address] [place] [address], [facility] IONIZED CALCIUM 1.05 mmol/L Low 1.12-1.32 [facility] Comment on above: Performed By: #### 8 5123, 12577 #### [facility] [address] [place] [address], [facility] Oxygen (Bld) [Partial pressure] 368.0 mm[Hg] High 80.0-105.0 [facility] Comment on above: Performed By: #### 8 512, 14253 #### [facility] [address] [place] [address], [place] PCO2 39.7 mmHg Normal 35.0-45.0 [facility] Comment on above: Performed By: #### 8 512, 24341 #### [facility] [address] [place] [address], [facility] pH (Bld) 7.39 [pH] Normal 7.35-7.45 [facility] Comment on above: Performed By: #### 8 512, 07495 #### [facility] [address] [facility] [place] [address], [place] Potassium [Moles/Vol] 3.9 mmol/L Normal 3.5-4.9 [facility] Comment on above: Performed By: #### 8 5123, 55423 #### [facility] [address] [place] [address], [place] Sodium [Moles/Vol] 145 mmol/L Normal 138-146 [facility] Comment on above: Performed By: #### 8 5123, 27952 #### [facility] [address] [place] [address], [place] BASE EXCESS -4.0 mmol/L Low -2.0-3.0 [facility] Comment on above: Performed By: #### 8 5123, 54417 #### [facility] [address] [place] [address], [facility] Glucose [Mass/Vol] 169 mg/dL High 70-105 [facility] Comment on above: Performed By: #### 8 5123, 93093 #### [facility] [address] [place] [address], [facility] Hematocrit (Bld) [Volume fraction] 40 % Normal 38-51 [facility] Comment on above: Performed By: #### 8 512, 60429 #### [facility] [address] [place] [address], [facility] Hemoglobin (Bld) [Mass/Vol] 13.6 g/dL Normal 12.0-17.0 [facility] Comment on above: Performed By: #### 8 512, 53190 #### [facility] [address] [place] [address], [facility] IONIZED CALCIUM 1.37 mmol/L High 1.12-1.32 [facility] Comment on above: Performed By: #### 8 512, 84665 #### [facility] [address] [place] [address], [facility] Oxygen (Bld) [Partial pressure] 301.0 mm[Hg] High 80.0-105.0 [facility] Comment on above: Performed By: #### 8 5123, 94569 #### [facility] [address] [place] [address], [facility] PCO2 36.1 mmHg Normal 35.0-45.0 [facility] Comment on above: Performed By: #### 8 5123, 57250 #### [facility] [address] [place] [address], [place] pH (Bld) 7.38 [pH] Normal 7.35-7.45 [facility] Comment on above: Performed By: #### 8 5123, 76062 #### [facility] [address] [place] [address], [facility] Potassium [Moles/Vol] 4.9 mmol/L Normal 3.5-4.9 [facility] Comment on above: Performed By: #### 8 5123, 38964 #### [facility] [address] [place] [address], [facility] Sodium [Moles/Vol] 137 mmol/L Low 138-146 [facility] Comment on above: Performed By: #### 8 5123, 47127 #### [facility] [address] [place] [address], [facility] BASE EXCESS -3.0 mmol/L Low -2.0-3.0 [facility] Comment on above: Performed By: #### 8 5123, 21899 #### [facility] [address] [place] [id number], [facility] Glucose [Mass/Vol] 174 mg/dL High 70-105 [facility] Comment on above: Performed By: #### 8 5123, 92801 #### [facility] [address] [place] [id number], [facility] Hematocrit (Bld) [Volume fraction] 45 % Normal 38-51 [facility] Comment on above: Performed By: #### 8 5123, 24605 #### [facility] [address] [place] [id number], [facility] Hemoglobin (Bld) [Mass/Vol] 15.3 g/dL Normal 12.0-17.0 [facility] Comment on above: Performed By: #### 8 5123, 64507 #### [facility] [address] [place] [id number], [facility] IONIZED CALCIUM 1.06 mmol/L Low 1.12-1.32 [facility] Comment on above: Performed By: #### 8 5123, 94042 #### [facility] [address] [place] [address], [facility] Oxygen (Bld) [Partial pressure] 404.0 mm[Hg] High 80.0-105.0 [facility] Comment on above: Performed By: #### 8 5123, 78849 #### [facility] [address] [place] [address], [facility] PCO2 42.4 mmHg Normal 35.0-45.0 [facility] Comment on above: Performed By: #### 8 5123, 75371 #### [facility] [address] [place] [address], [facility] pH (Bld) 7.35 [pH] Normal 7.35-7.45 [facility] Comment on above: Performed By: #### 8 5123, 87896 #### [facility] [address] [place] [address], [place] Potassium [Moles/Vol] 4.7 mmol/L Normal 3.5-4.9 [facility] Comment on above: Performed By: #### 8 5123, 32250 #### [facility] [address] [place] [address], [place] Sodium [Moles/Vol] 141 mmol/L Normal 138-146 [facility] Comment on above: Performed By: #### 8 5123, 24445 #### [facility] [address] [place] [address], [place] BASE EXCESS -2.0 mmol/L Normal -2.0-3.0 [facility] Comment on above: Performed By: #### 8 5123, 19213 #### [facility] [address] [place] [address], [place] Glucose [Mass/Vol] 184 mg/dL High 70-105 [facility] Comment on above: Performed By: #### 8 5123, 20930 #### [facility] [address] [place] [address], [facility] Hematocrit (Bld) [Volume fraction] 46 % Normal 38-51 [facility] Comment on above: Performed By: #### 8 5123, 88147 #### [facility] [address] [place] [address], [facility] Hemoglobin (Bld) [Mass/Vol] 15.6 g/dL Normal 12.0-17.0 [facility] Comment on above: Performed By: #### 8 5123, 01910 #### [facility] [address] [place] [address], [facility] IONIZED CALCIUM 1.06 mmol/L Low 1.12-1.32 [facility] Comment on above: Performed By: #### 8 5123, 05699 #### [facility] [address] [place] [address], [facility] Oxygen (Bld) [Partial pressure] 374.0 mm[Hg] High 80.0-105.0 [facility] Comment on above: Performed By: #### 8 5123, 98791 #### [facility] [address] [place] [address], [facility] PCO2 43.3 mmHg Normal 35.0-45.0 [facility] Comment on above: Performed By: #### 8 5123, 63841 #### [facility] [address] [place] [address], [facility] pH (Bld) 7.34 [pH] Low 7.35-7.45 [facility] Comment on above: Performed By: #### 8 5123, 35352 #### [facility] [address] [place] [address], [facility] Potassium [Moles/Vol] 4.8 mmol/L Normal 3.5-4.9 [facility] Comment on above: Performed By: #### 8 5123, 41957 #### [facility] [address] [place] [address], [facility] Sodium [Moles/Vol] 139 mmol/L Normal 138-146 [facility] Comment on above: Performed By: #### 8 5123, 11787 #### [facility] [address] [place] [address], [facility] BASE EXCESS -2.0 mmol/L Normal -2.0-3.0 [facility] Comment on above: Performed By: #### 8 5123, 69963 #### [facility] [address] [place] [address], [facility] Glucose [Mass/Vol] 176 mg/dL High 70-105 [facility] Comment on above: Performed By: #### 8 5123, 62224 #### [facility] [address] [place] [address], [facility] Hematocrit (Bld) [Volume fraction] 44 % Normal 38-51 [facility] Comment on above: Performed By: #### 8 5123, 82624 #### [facility] [address] [place] [address], [facility] Hemoglobin (Bld) [Mass/Vol] 15.0 g/dL Normal 12.0-17.0 [facility] Comment on above: Performed By: #### 8 5123, 28368 #### [facility] [address] [place] [address], [facility] IONIZED CALCIUM 1.07 mmol/L Low 1.12-1.32 [facility] Comment on above: Performed By: #### 8 5123, 31592 #### [facility] [address] [place] [address], [facility] Oxygen (Bld) [Partial pressure] 284.0 mm[Hg] High 80.0-105.0 [facility] Comment on above: Performed By: #### 8 5123, 23550 #### [facility] [address] [place] [address], [facility] PCO2 47.5 mmHg High 35.0-45.0 [facility] Comment on above: Performed By: #### 8 5123, 52879 #### [facility] [address] [place] [address], [facility] pH (Bld) 7.32 [pH] Low 7.35-7.45 [facility] Comment on above: Performed By: #### 8 5123, 28884 #### [facility] [address] [place] [address], [facility] Potassium [Moles/Vol] 4.8 mmol/L Normal 3.5-4.9 [facility] Comment on above: Performed By: #### 8 5123, 59842 #### [facility] [address] [place] [address], [facility] Sodium [Moles/Vol] 139 mmol/L Normal 138-146 [facility] Comment on above: Performed By: #### 8 5123, 15177 #### [facility] [address] [place] [address], [facility] BASE EXCESS -2.0 mmol/L Normal -2.0-3.0 [facility] Comment on above: Performed By: #### 0 0121, 35289, 54112, 43178, 65753 #### [facility] [address] [place] [address], [facility] Glucose [Mass/Vol] 166 mg/dL High 70-105 [facility] Comment on above: Performed By: #### 0 0121, 83373, 23124, 01790, 12977 #### [facility] [address] [place] [address], [facility] Hematocrit (Bld) [Volume fraction] 45 % Normal 38-51 [facility] Comment on above: Performed By: #### 0 0121, 09353, 26210, 04750, 38293 #### [facility] [address] [place] [address], [facility] Hemoglobin (Bld) [Mass/Vol] 15.3 g/dL Normal 12.0-17.0 [facility] Comment on above: Performed By: #### 0 0121, 50258, 64606, 23275, 00019 #### [facility] [address] [place] [address], [facility] IONIZED CALCIUM 1.09 mmol/L Low 1.12-1.32 [facility] Comment on above: Performed By: #### 0 0121, 14061, 47303, 45629, 91527 #### [facility] [address] [place] [address], [facility] Oxygen (Bld) [Partial pressure] 313.0 mm[Hg] High 80.0-105.0 [facility] Comment on above: Performed By: #### 0 0121, 94694, 32734, 83841, 86089 #### [facility] [address] [place] [address], [facility] PCO2 47.7 mmHg High 35.0-45.0 [facility] Comment on above: Performed By: #### 0 0121, 58301, 88119, 14043, 32185 #### [facility] [address] [place] [address], [facility] pH (Bld) 7.32 [pH] Low 7.35-7.45 [facility] Comment on above: Performed By: #### 0 0121, 92598, 47278, 90833, 84523 #### [facility] [address] [place] [address], [place] Potassium [Moles/Vol] 4.4 mmol/L Normal 3.5-4.9 [facility] Comment on above: Performed By: #### 0 0121, 12421, 40942, 29447, 73047 #### [facility] [address] [place] [address], [facility] Sodium [Moles/Vol] 140 mmol/L Normal 138-146 [facility] Comment on above: Performed By: #### 0 0121, 39707, 67284, 37524, 37745 #### [facility] [address] [place] [address], [facility] BASE EXCESS -1.0 mmol/L Normal -2.0-3.0 [facility] Comment on above: Performed By: #### 0 0121, 94644, 85709, 52448, 23061 #### [facility] [address] [place] [address], [facility] Glucose [Mass/Vol] 146 mg/dL High 70-105 [facility] Comment on above: Performed By: #### 0 0121, 76380, 78543, 86452, 02515 #### [facility] [address] [place] [address], [facility] Hematocrit (Bld) [Volume fraction] 45 % Normal 38-51 [facility] Comment on above: Performed By: #### 0 0121, 44595, 25541, 79587, 68983 #### [facility] [address] [place] [address], [facility] Hemoglobin (Bld) [Mass/Vol] 15.3 g/dL Normal 12.0-17.0 [facility] Comment on above: Performed By: #### 0 0121, 03039, 26961, 88875, 19839 #### [facility] [address] [place] [address], [place] IONIZED CALCIUM 1.06 mmol/L Low 1.12-1.32 [facility] Comment on above: Performed By: #### 0 0121, 38580, 29110, 38458, 16255 #### [facility] [address] [place] [address], [place] Oxygen (Bld) [Partial pressure] 319.0 mm[Hg] High 80.0-105.0 [facility] Comment on above: Performed By: #### 0 0121, 44902, 99084, 35760, 98672 #### [facility] [address] [place] [address], [place] PCO2 50.9 mmHg High 35.0-45.0 [facility] Comment on above: Performed By: #### 0 0121, 76131, 04073, 36320, 95286 #### [facility] [address] [place] [address], [place] pH (Bld) 7.32 [pH] Low 7.35-7.45 [facility] Comment on above: Performed By: #### 0 0121, 02965, 01672, 59172, 97572 #### [facility] [address] [place] [address], [place] Potassium [Moles/Vol] 4.4 mmol/L Normal 3.5-4.9 [facility] Comment on above: Performed By: #### 0 0121, 70690, 71723, 32402, 54090 #### [facility] [address] [place] [address], [place] Sodium [Moles/Vol] 138 mmol/L Normal 138-146 [facility] Comment on above: Performed By: #### 0 0121, 08294, 41494, 75515, 55426 #### [facility] [address] [place] [address], [place] BASE EXCESS 0.0 mmol/L Normal -2.0-3.0 [facility] Comment on above: Performed By: #### 0 0121, 16482, 04443, 51964, 67751 #### [facility] [address] [place] [address], [place] Glucose [Mass/Vol] 116 mg/dL High 70-105 [facility] Comment on above: Performed By: #### 0 0121, 95175, 73685, 44235, 04530 #### [facility] [address] [place] [address], [facility] Hematocrit (Bld) [Volume fraction] 43 % Normal 38-51 [facility] Comment on above: Performed By: #### 0 0121, 62742, 49536, 05252, 43658 #### [facility] [address] [place] [address], [facility] Hemoglobin (Bld) [Mass/Vol] 14.6 g/dL Normal 12.0-17.0 [facility] Comment on above: Performed By: #### 0 0121, 68285, 44797, 21315, 26620 #### [facility] [address] [place] [address], [facility] IONIZED CALCIUM 1.05 mmol/L Low 1.12-1.32 [facility] Comment on above: Performed By: #### 0 0121, 49529, 73218, 72448, 81079 #### [facility] [address] [place] [address], [facility] Oxygen (Bld) [Partial pressure] 409.0 mm[Hg] High 80.0-105.0 [facility] Comment on above: Performed By: #### 0 0121, 41660, 55835, 97112, 18414 #### [facility] [address] [place] [id number], [facility] PCO2 44.9 mmHg Normal 35.0-45.0 [facility] Comment on above: Performed By: #### 0 0121, 44578, 11230, 03140, 92757 #### [facility] [address] [place] [address], [facility] pH (Bld) 7.36 [pH] Normal 7.35-7.45 [facility] Comment on above: Performed By: #### 0 0121, 70910, 63341, 33283, 03710 #### [facility] [address] [place] [address], [place] Potassium [Moles/Vol] 4.5 mmol/L Normal 3.5-4.9 [facility] Comment on above: Performed By: #### 0 0121, 28253, 09229, 20383, 13645 #### [facility] [address] [place] [address], [place] Sodium [Moles/Vol] 138 mmol/L Normal 138-146 [facility] Comment on above: Performed By: #### 0 0121, 09207, 48599, 32095, 19664 #### [facility] [address] [place] [address], [place] BASE EXCESS 0.0 mmol/L Normal -2.0-3.0 [facility] Comment on above: Performed By: #### 0 0121, 72978, 97066, 65823, 72962 #### [facility] [address] [place] [address], [place] Glucose [Mass/Vol] 101 mg/dL Normal 70-105 [facility] Comment on above: Performed By: #### 0 0121, 95488, 83413, 43022, 09114 #### [facility] [address] [place] [address], [place] Hematocrit (Bld) [Volume fraction] 44 % Normal 38-51 [facility] Comment on above: Performed By: #### 0 0121, [id number], 27530, 64520, 83283 #### [facility] [address] [place] [address], [place] Hemoglobin (Bld) [Mass/Vol] 15.0 g/dL Normal 12.0-17.0 [facility] Comment on above: Performed By: #### 0 0121, 97736, 18233, 53872, 34943 #### [facility] [address] [place] [address], [facility] IONIZED CALCIUM 1.02 mmol/L Low 1.12-1.32 [facility] Comment on above: Performed By: #### 0 0121, 97075, 61689, 97186, 90738 #### [facility] [address] [place] [address], [facility] Oxygen (Bld) [Partial pressure] 516.0 mm[Hg] High 80.0-105.0 [facility] Comment on above: Performed By: #### 0 0121, 23620, 34604, 99021, 99104 #### [facility] [address] [place] [id number], [facility] PCO2 50.7 mmHg High 35.0-45.0 [facility] Comment on above: Performed By: #### 0 0121, 07402, 02279, 13175, 93247 #### [facility] [address] [place] [address], [facility] pH (Bld) 7.33 [pH] Low 7.35-7.45 [facility] Comment on above: Performed By: #### 0 0121, 72957, 61129, 67753, 19145 #### [facility] [address] [place] [address], [facility] Potassium [Moles/Vol] 4.1 mmol/L Normal 3.5-4.9 [facility] Comment on above: Performed By: #### 0 0121, 12115, 53761, 41148, 42949 #### [facility] [address] [place] [address], [place] Sodium [Moles/Vol] 137 mmol/L Low 138-146 [facility] Comment on above: Performed By: #### 0 0121, 51638, 52469, 26435, 10346 #### [facility] [address] [place] [address], [place] Hematocrit (Bld) [Volume fraction] 43 % Normal 38-51 [facility] Comment on above: Performed By: #### 0 0121, 41907, 61808, 10084, 52863 #### [facility] [address] [place] [address], [place] Hemoglobin (Bld) [Mass/Vol] 14.6 g/dL Normal 12.0-17.0 [facility] Comment on above: Performed By: #### 0 0121, 28096, 82234, 94012, 15380 #### [facility] [address] [place] [address], [place] Oxygen (Bld) [Partial pressure] 51.0 mm[Hg] Normal [facility] Comment on above: Performed By: #### 0 0121, 74682, 03997, 16944, 79777 #### [facility] [address] [place] [address], [place] BASE EXCESS -4.0 mmol/L Low -2.0-3.0 [facility] Comment on above: Performed By: #### 0 0121, 56982, 78751, 38219, 53944 #### [facility] [address] [place] [address], [place] Glucose [Mass/Vol] 104 mg/dL Normal 70-105 [facility] Comment on above: Performed By: #### 0 0121, 94867, 84017, 25141, 77368 #### [facility] [address] [place] [address], [place] Hematocrit (Bld) [Volume fraction] 55 % High 38-51 [facility] Comment on above: Performed By: #### 0 0121, 75476, 61765, 30113, 97746 #### [facility] [address] [place] [address], [place] Hemoglobin (Bld) [Mass/Vol] 18.7 g/dL High 12.0-17.0 [facility] Comment on above: Performed By: #### 0 0121, 24697, 90436, 48154, 84280 #### [facility] [address] [place] [address], [facility] IONIZED CALCIUM 1.24 mmol/L Normal 1.12-1.32 [facility] Comment on above: Performed By: #### 0 0121, 53927, 29619, 90220, 17312 #### [facility] [address] [place] [address], [facility] Oxygen (Bld) [Partial pressure] 159.0 mm[Hg] High 80.0-105.0 [facility] Comment on above: Performed By: #### 0 0121, 85312, 88010, 36506, 13510 #### [facility] [address] [place] [address], [facility] PCO2 48.7 mmHg High 35.0-45.0 [facility] Comment on above: Performed By: #### 0 0121, 65749, 33531, 85510, 56421 #### [facility] [address] [place] [address], [facility] pH (Bld) 7.30 [pH] Low 7.35-7.45 [facility] Comment on above: Performed By: #### 0 0121, 29767, 99512, 66142, 29550 #### [facility] [address] [place] [address], [place] Potassium [Moles/Vol] 4.1 mmol/L Normal 3.5-4.9 [facility] Comment on above: Performed By: #### 0 0121, 02717, 30457, 56691, 19604 #### [facility] [address] [place] [address], [place] Sodium [Moles/Vol] 139 mmol/L Normal 138-146 [facility] Comment on above: Performed By: #### 0 0121, 01698, 13649, 68679, 77688 #### [facility] [address] [place] [address], [facility] PHOSPHORUS BLOODon 9 Phosphate [Mass/Vol] 4.3 mg/dL Normal 2.5-5.0 [facility] Comment on above: Order Comment: R/O P ulmonary Edema Performed By: #### 0 0121, 70660, 65943 ####[facility] [place] [address], [facility] POC GLUCOSE LABon 03-19-2019 Glucose [Mass/Vol] 115 mg/dL High 70-100 [facility] Comment on above: Performed By: #### 5 7307 #### [facility] [address] [place] [address], [facility] Glucose [Mass/Vol] 145 mg/dL High 70-100 [facility] Comment on above: Performed By: #### 5 7307 #### [facility] [address] [place] [address], [facility] Glucose [Mass/Vol] 121 mg/dL High 70-100 [facility] Comment on above: Performed By: #### 8 5499 ####[facility] [place] [address], [facility] Glucose [Mass/Vol] 122 mg/dL High 70-100 [facility] Comment on above: Performed By: #### 8 5499 ####[facility] [place] [address], [facility] PORTABLE CHEST 1 VIEWon 03-01 PORTABLE CHEST 1 VIEW [facility] of Radiology [address] [place] [address] ===== Patient Name: TRACIE CRAIN : 1965 Sex: M Age: Race: NA Pt. Location: [id number] Patient Status: I Ordered Date: 03/19/2019 5:50:00 [...] the upper thoracic trachea in satisfactory position. [place]-Sher catheter, chest tubes and enteric tube appear [...] findings. Electronically signed by:Yenni Osuna. Transcribed by: [email or web address], User Resident: EMILIA SHERMAN Electronically Signed by: YENNI OSUNA @ 03/20/2019 05:05 PM I personally read this/these film(s) with this resident Normal [facility] Comment on above: Order Comment: << On admission If not done in ED>> No: Do not add to previous draw PORTABLE CHEST 1 VIEW [facility] Department of Radiology [address] [place] [id number] ===== Patient Name: TRACIE CRAIN : 1965 Sex: M Age: Race: NA Pt. Location: [id number] Patient Status: I Ordered Date: 03/19/2019 4:45:00 [...] right-sided chest tubes appear in satisfactory position. [place]-Sher catheter with tip projecting over the pulmonary [...] findings. Electronically signed by:Divya Collins. Transcribed by: [email or web address], User Resident: ANAI ALVARADO Electronically Signed by: DIVYA COLLINS @ 03/20/2019 11:00 AM I personally read this/these film(s) with this resident Normal [facility] Comment on above: Order Comment: << On admission If not done in ED>> No: Do not add to previous draw PORTABLE CHEST 1 VIEW [facility] Department of Radiology [address] [place] [id number] ===== Patient Name: TRACIE CRAIN : 1965 Sex: M Age: Race: NA Pt. Location: [id number] Patient Status: I Ordered Date: 03/19/2019 3:55:00 [...] tubes are in place. No appreciable pneumothorax. [place]Sher catheter in place likely terminating in the [...] disease most likely representing multifocal atelectasis. * [place] catheter likely terminating in the proximal right main pulmonary artery. * Trace pleural fluid bilaterally. Approved by:Pierce Sherman on 03/19/2019 5:04 PM EDT. I, Yenni Osuna, have reviewed the images and report and concur with these findings. Electronically signed by:Yenni Osuna. Transcribed by: [email or web address], User Resident: EMILIA SHERMAN Electronically Signed by: YENNI OSUNA @ 03/20/2019 05:04 PM I personally read this/these film(s) with this resident Normal [facility] Comment on above: Order Comment: << On admission If not done in ED>> No: Do not add to previous draw PROTHROMBIN TIMEon 9 INR Coag (PPP) [Relative time] 1.60 {INR} High 0.91-1.16 [facility] Comment on above: Order Comment: R/O [...] CHEST 1995;108:231S-246S. Performed By: #### 5 6101 ####[facility] [facility] PT Coag (PPP) [Time] 19.1 s High 12.3-14.8 [facility] Comment on above: Order Comment: R/O P ulmonary Edema Result Comment: ALL RESULTS MUST BE INTERPRETED WITH RESPECT TO BLOOD DRAWING ARTIFACT OR DILUTION ERROR OF ANTICOAGULANT AT THE TIME OF SAMPLING. Performed By: #### 5 6101 ####[facility] INR Coag (PPP) [Relative time] 1.68 {INR} High 0.91-1.16 [facility] Comment on above: Order Comment: If [...] CHEST 1995;108:231S-246S. Performed By: #### 8 5123, 42169 #### [facility] [address] [facility] [place] [address], [facility] PT Coag (PPP) [Time] 19.9 s High 12.3-14.8 [facility] Comment on above: Order Comment: If no t done in ED No: Do not add to previous draw Result Comment: ALL RESULTS MUST BE INTERPRETED WITH RESPECT TO BLOOD DRAWING ARTIFACT OR DILUTION ERROR OF ANTICOAGULANT AT THE TIME OF SAMPLING. Performed By: #### 8 5123, 22314 #### [facility] [address] [facility] [place] [address], [facility] INR Coag (PPP) [Relative time] 1.02 {INR} Normal 0.91-1.16 [facility] Comment on above: Order Comment: If no [...] CHEST 1995;108:231S-246S. Performed By: #### 0 0121, 28678, 86180, 27557, 30980 #### [facility] [address] [place] [address], [facility] PT Coag (PPP) [Time] 13.4 s Normal 12.3-14.8 [facility] Comment on above: Order Comment: If no t done in ED No: Do not add to previous draw Result Comment: ALL RESULTS MUST BE INTERPRETED WITH RESPECT TO BLOOD DRAWING ARTIFACT OR DILUTION ERROR OF ANTICOAGULANT AT THE TIME OF SAMPLING. Performed By: #### 0 0121, 08254, 00465, 72113, 95404 #### [facility] [address] [place] [address], [facility] RBC'S 2 UNITSon 03-19-2019 CROSSMATCH INTERP 1 COMP Normal [facility] Comment on above: Performed By: #### 0 0121, 21834, 76407, 50312, 36163 #### [facility] [address] [place] [address], [facility] CROSSMATCH INTERP 2 COMP Normal [facility] Comment on above: Performed By: #### 0 0121, 79260, 28050, 97363, 95940 #### [facility] [address] [place] [address], [facility] PRODUCT CODE 1 E0332 Normal [facility] Comment on above: Performed By: #### 0 0121, 24250, 01970, 79827, 56523 #### [facility] [address] [facility] [place] [address], [facility] PRODUCT CODE 2 E0336 Normal [facility] Comment on above: Performed By: #### 0 0121, 33919, 73810, 90679, 66682 #### [facility] [address] [place] [address], [facility] PRODUCT STATUS 1 RE Normal [facility] Comment on above: Result Comment: Resu lt changed by IF on 03/19/2019 08:33. The previous value was XM. Result changed by IF on 03/19/2019 16:19. The previous value was IS. Result changed by IF on 03/20/2019 09:43. The previous value was XM. Result changed by IF on 03/20/2019 09:46. The previous value was XX. Performed By: #### 0 0121, 63072, 23024, 14928, 72336 #### [facility] [address] [place] [address], [facility] PRODUCT STATUS 2 RE Normal [facility] Comment on above: Result Comment: Resu lt changed by IF on 03/19/2019 08:33. The previous value was XM. Result changed by IF on 03/19/2019 16:19. The previous value was IS. Result changed by IF on 03/20/2019 09:43. The previous value was XM. Result changed by IF on 03/20/2019 11:11. The previous value was XX. Performed By: #### 0 0121, 36622, 02903, 74858, 90077 #### [facility] [address] [place] [address], [facility] UNIT ABO 1 O Normal [facility] Comment on above: Performed By: #### 0 0121, 43983, 82451, 84992, 11330 #### [facility] [address] [place] [address], [facility] UNIT ABO 2 O Normal [facility] Comment on above: Performed By: #### 0 0121, 02407, 08067, 29438, 47044 #### [facility] [address] [place] [address], [facility] UNIT ID 1 [id number] Normal [facility] Comment on above: Performed By: #### 0 0121, 41410, 68777, 06043, 32633 #### [facility] [address] [facility] [place] [address], [facility] UNIT ID 2 [id number] Normal [facility] Comment on above: Performed By: #### 0 0121, 63580, 89220, 51759, 06401 #### [facility] [address] [place] [address], [place] UNIT RH 1 Negative Normal [facility] Comment on above: Performed By: #### 0 0121, 68830, 77152, 39550, 30197 #### [facility] [address] [place] [address], [place] UNIT RH 2 Negative Normal [facility] Comment on above: Performed By: #### 0 0121, 84061, 70307, 86308, 45932 #### [facility] [address] [place] [address], [facility] *MRSA/MSSA DNA NASALon 03-18 *MRSA/MSSA DNA NASAL Clinical Report: (D ) Specimen: NASAL SWAB Collected: 03/18/2019 17:05 Status: Final Last Updated: 03/19/2019 12:12 MSSA DNA (Final) Negative MRSA DNA (Final) Negative Normal [facility] Comment on above: Performed By: #### 8 5123, 59923 #### [facility] [address] [place] [address], [facility] APTTon 03-18-2019 aPTT Coag (Bld) [Time] 58.1 s High 25.0-35.0 [facility] Comment on above: Order Comment: << [...] OF HEPARIN. Performed By: #### 0 0121, 10444, 23716, 94741, 95945 #### [facility] [address] [place] [address], [facility] aPTT Coag (Bld) [Time] 67.7 s High 25.0-35.0 [facility] Comment on above: Order Comment: << [...] OF HEPARIN. Performed By: #### 0 0121, 53134, 78068, 60030, 38118 #### [facility] [address] aPTT Coag (Bld) [Time] 74.8 s Critically high 25.0-35.0 [facility] Comment on above: Order Comment: << [...] AT 0609. Performed By: #### 0 0121, 25779, 90126, 05152, 02627 #### [facility] [address] BASIC METABOLIC PANELon 06- Calcium [Mass/Vol] 9.2 mg/dL Normal 8.6-10.3 [facility] Comment on above: Order Comment: << ON ADMISSION If not done in ED>> No: Do not add to previous draw Performed By: #### 0 0121, 53110, 57322, 69899, 40023 #### [facility] [address] [place] [address], [facility] Chloride [Moles/Vol] 105 mmol/L Normal 98-107 [facility] Comment on above: Order Comment: << ON ADMISSION If not done in ED>> No: Do not add to previous draw Performed By: #### 0 0121, 37777, 71291, 79895, 51144 #### [facility] [address] [place] [address], [facility] CO2 [Moles/Vol] 27 mmol/L Normal 21-31 [facility] Comment on above: Order Comment: << ON ADMISSION If not done in ED>> No: Do not add to previous draw Performed By: #### 0 0121, 47446, 35807, 88623, 59128 #### [facility] [address] [place] [address], [facility] Creatinine [Mass/Vol] 1.11 mg/dL Normal 0.70-1.30 [facility] Comment on above: Order Comment: << ON ADMISSION If not done in ED>> No: Do not add to previous draw Performed By: #### 0 0121, 91483, 49704, 49918, 67623 #### [facility] [address] [place] [address], [facility] GFR/1.73 sq M predicted among blacks MDRD (S/P/Bld) [Vol rate/Area] mL/min/{1.73_m2} Normal >60 [facility] Comment on above: Order Comment: << ON ADMISSION If not done in ED>> No: Do not add to previous draw Performed By: #### 0 0121, 38158, 74183, 52848, 77311 #### [facility] [address] [place] [address], [facility] GFR/1.73 sq M predicted among non-blacks MDRD (S/P/Bld) [Vol rate/Area] mL/min/{1.73_m2} Normal >60 [facility] Comment on above: Order Comment: << ON ADMISSION If not done in ED>> No: Do not add to previous draw Performed By: #### 0 0121, 72832, 11476, 42597, 34086 #### [facility] [address] [place] [address], [place] Glucose [Mass/Vol] 101 mg/dL High 70-100 [facility] Comment on above: Order Comment: << ON ADMISSION If not done in ED>> No: Do not add to previous draw Performed By: #### 0 0121, 73800, 29414, 43947, 48337 #### [facility] [address] [place] [address], [place] Potassium [Moles/Vol] 4.2 mmol/L Normal 3.5-5.1 [facility] Comment on above: Order Comment: << ON ADMISSION If not done in ED>> No: Do not add to previous draw Performed By: #### 0 0121, 20729, 16359, 11376, 76557 #### [facility] [address] [place] [address], [place] Sodium [Moles/Vol] 136 mmol/L Normal 136-145 [facility] Comment on above: Order Comment: << ON ADMISSION If not done in ED>> No: Do not add to previous draw Performed By: #### 0 0121, 71436, 79775, 85638, 84594 #### [facility] [address] [place] [address], [place] Urea nitrogen [Mass/Vol] 15 mg/dL Normal 7-25 [facility] Comment on above: Order Comment: << ON ADMISSION If not done in ED>> No: Do not add to previous draw Performed By: #### 0 0121, 62081, 75755, 26529, 41833 #### [facility] [address] [place] [address], [place] CBC COMPLETE BLOOD COUNTon 0 - Erythrocyte distribution width (RBC) [Ratio] 12.8 % Normal 11.5-15.0 [facility] Comment on above: Order Comment: << ON ADMISSION If not done in ED>> No: Do not add to previous draw Performed By: #### 0 0121, 96075, 42015, 01768, 67763 #### [facility] [address] [place] [address], [facility] Hematocrit (Bld) [Volume fraction] 55.1 % High 39.0-50.0 [facility] Comment on above: Order Comment: << ON ADMISSION If not done in ED>> No: Do not add to previous draw Performed By: #### 0 0121, 29484, 71881, 37405, 83546 #### [facility] [address] [place] [address], [facility] Hemoglobin (Bld) [Mass/Vol] 17.5 g/dL High 13.0-17.0 [facility] Comment on above: Order Comment: << ON ADMISSION If not done in ED>> No: Do not add to previous draw Performed By: #### 0 0121, 64961, 21557, 24346, 69698 #### [facility] [address] [place] [address], [facility] MCH (RBC) [Entitic mass] 28.6 pg Normal 27.0-33.0 [facility] Comment on above: Order Comment: << ON ADMISSION If not done in ED>> No: Do not add to previous draw Performed By: #### 0 0121, 48525, 24174, 43663, 12074 #### [facility] [address] [place] [address], [facility] MCHC (RBC) [Mass/Vol] 31.8 g/dL Low 32.0-35.0 [facility] Comment on above: Order Comment: << ON ADMISSION If not done in ED>> No: Do not add to previous draw Performed By: #### 0 0121, 01777, 63473, 91593, 58869 #### [facility] [address] MCV (RBC) [Entitic vol] 90.0 fL Normal 82.0-98.0 [facility] Comment on above: Order Comment: << ON ADMISSION If not done in ED>> No: Do not add to previous draw Performed By: #### 0 0121, 95678, 23984, 72342, 02084 #### [facility] [address] [place] [address], [facility] Nucleated RBC/100 WBC (Bld) [Ratio] 0 % Normal 0-0 [facility] Comment on above: Order Comment: << ON ADMISSION If not done in ED>> No: Do not add to previous draw Performed By: #### 0 0121, 68003, 88428, 56925, 17204 #### [facility] [address] [place] [address], [facility] PLAT CNT 286 10*3/uL Normal 150-400 [facility] Comment on above: Order Comment: << ON ADMISSION If not done in ED>> No: Do not add to previous draw Performed By: #### 0 0121, 62146, 50438, 11914, 54422 #### [facility] [address] [place] [address], [facility] RBC (Bld) [#/Vol] 6.12 10*6/uL High 4.20-5.70 [facility] Comment on above: Order Comment: << ON ADMISSION If not done in ED>> No: Do not add to previous draw Performed By: #### 0 0121, 07098, 13622, 36562, 49949 #### [facility] [address] [place] [address], [facility] WBC (Bld) [#/Vol] 9.33 10*3/uL Normal 4.00-10.60 [facility] Comment on above: Order Comment: << ON ADMISSION If not done in ED>> No: Do not add to previous draw Performed By: #### 0 0121, 71278, 36152, 52462, 92222 #### [facility] [address] [place] [address], [facility] MAGNESIUM BLOODon 03-18-2019 Magnesium [Mass/Vol] 2.4 mg/dL Normal 1.9-2.7 [facility] Comment on above: Performed By: #### 0 0121, 12304, 58947, 92888, 14712 #### [facility] [address] [place] [address], [facility] TYPE AND SCREENon 03-18-2019 ABO INTERPRETATION O Normal [facility] Comment on above: Performed By: #### 0 0121, 56718, 80907, 21027, 52415 #### [facility] [address] [place] [address], [facility] RH INTERPRETATION Negative Normal [facility] Comment on above: Performed By: #### 0 0121, 26276, 38077, 49361, 22556 #### [facility] [address] [place], [place] [address] [place] [address] UFH HEPARIN ASSAYon 03-18-20 19 UNFRACTIONATED HEPARIN 0.19 IU/mL Low 0.30-0.70 [facility] Comment on above: Order Comment: If no t done in ED No: Do not add to previous draw Result Comment: [place] roxaban and Apixaban will interfere with the anti Xa assay used to monitor UFH and LMWH. Performed By: #### 0 0121, 70977, 85417, 43204, 32935 #### [facility] [address] [place] [address], [facility] UNFRACTIONATED HEPARIN 0.29 IU/mL Low 0.30-0.70 [facility] Comment on above: Order Comment: << ON ADMISSION If not done in ED>> No: Do not add to previous draw Result Comment: [place] roxaban and Apixaban will interfere with the anti Xa assay used to monitor UFH and LMWH. Performed By: #### 0 0121, 38809, 36822, 35196, 51093 #### [facility] [address] [place] [address], [place] UNFRACTIONATED HEPARIN 0.25 IU/mL Low 0.30-0.70 [facility] Comment on above: Result Comment: [place] roxaban and Apixaban will interfere with the anti Xa assay used to monitor UFH and LMWH. Performed By: #### 0 0121, 13353, 79466, 16531, 13936 #### [facility] [address] [place] [address], [place] URINALYSISon 03-18-2019 Appearance (U) CLEAR Normal CLEAR [facility] Comment on above: Order Comment: If no t done in ED No: Do not add to previous draw Performed By: #### 0 0121, 93467, 84664, 26025, 23653 #### [facility] [address] [place] [address], [place] Bilirubin [Mass/Vol] Negative Normal NEGATIVE [facility] Comment on above: Order Comment: If no t done in ED No: Do not add to previous draw Performed By: #### 0 0121, 35241, 82898, 46204, 16647 #### [facility] [address] [place] [address], [place] BLOOD Negative Normal NEGATIVE [facility] Comment on above: Order Comment: If no t done in ED No: Do not add to previous draw Performed By: #### 0 0121, 84778, 47851, 62450, 05107 #### [facility] [address] [place] [address], [place] Color (U) YELLOW Normal YELLOW [facility] Comment on above: Order Comment: If no t done in ED No: Do not add to previous draw Performed By: #### 0 0121, 14561, 45596, 11110, 79058 #### [facility] [address] [place] [address], [place] Glucose [Mass/Vol] Negative Normal NEGATIVE [facility] Comment on above: Order Comment: If no t done in ED No: Do not add to previous draw Performed By: #### 0 0121, 92120, 61961, 40498, 03192 #### [facility] [address] [place] [address], [facility] KETONE Negative Normal NEGATIVE [facility] Comment on above: Order Comment: If no t done in ED No: Do not add to previous draw Performed By: #### 0 0121, 79310, 79399, 24721, 77060 #### [facility] [address] [place] [address], [place] LEUK RADHA Negative Normal NEGATIVE [facility] Comment on above: Order Comment: If no t done in ED No: Do not add to previous draw Performed By: #### 0 0121, 83898, 93759, 03415, 53724 #### [facility] [address] [place] [address], [facility] MICRO NOT DONE negative chemical reactions unless requested in original order Normal [facility] Comment on above: Order Comment: If no t done in ED No: Do not add to previous draw Performed By: #### 0 0121, 42740, 23238, 00135, 85173 #### [facility] [address] [place] [address], [place] Nitrite Ql (U) Negative Normal NEGATIVE [facility] Comment on above: Order Comment: If no t done in ED No: Do not add to previous draw Performed By: #### 0 0121, 15965, 27330, 53441, 72716 #### [facility] [address] [place] [address], [place] pH (Bld) 6.0 Normal 5.0-8.0 [facility] Comment on above: Order Comment: If no t done in ED No: Do not add to previous draw Performed By: #### 0 0121, 74368, 89933, 61532, 17453 #### [facility] [address] Protein (U) [Mass/Vol] Negative Normal NEGATIVE [facility] Comment on above: Order Comment: If no t done in ED No: Do not add to previous draw Performed By: #### 0 0121, 57054, 40460, 45664, 85439 #### [facility] [address] [facility] SPEC GRAV 1.017 Normal 1.015-1.020 [facility] Comment on above: Order Comment: If no t done in ED No: Do not add to previous draw Performed By: #### 0 0121, 77595, 64374, 90894, 81291 #### [facility] [address] APTTon 03-17-2019 aPTT Coag (Bld) [Time] 67.3 s High 25.0-35.0 [facility] Comment on above: Order Comment: No: [...] THIS PURPOSE. Performed By: #### 0 0121, 73327, 65918, 30797, 01871 #### [facility] [address] [facility]. [address] BASIC METABOLIC PANELon 02-28 Calcium [Mass/Vol] 9.1 mg/dL Normal 8.6-10.3 [facility] Comment on above: Order Comment: No: D o not add to previous draw Performed By: #### 0 0121, 60598, 45830, 16027, 87582 #### [facility] [address] [place] [address], [facility] Chloride [Moles/Vol] 101 mmol/L Normal 98-107 [facility] Comment on above: Order Comment: No: D o not add to previous draw Performed By: #### 0 0121, 44377, 46767, 07679, 86520 #### [facility] [address] [place] [address], [place] CO2 [Moles/Vol] 24 mmol/L Normal 21-31 [facility] Comment on above: Order Comment: No: D o not add to previous draw Performed By: #### 0 0121, 59674, 84905, 25036, 99619 #### [facility] [address] [place] [address], [place] Creatinine [Mass/Vol] 1.02 mg/dL Normal 0.70-1.30 [facility] Comment on above: Order Comment: No: D o not add to previous draw Performed By: #### 0 0121, 94177, 50735, 59114, 98365 #### [facility] [address] [place] [address], [place] GFR/1.73 sq M predicted among blacks MDRD (S/P/Bld) [Vol rate/Area] mL/min/{1.73_m2} Normal >60 [facility] Comment on above: Order Comment: No: D o not add to previous draw Performed By: #### 0 0121, 43788, 49050, 10565, 86601 #### [facility] [address] [place] [address], [place] GFR/1.73 sq M predicted among non-blacks MDRD (S/P/Bld) [Vol rate/Area] mL/min/{1.73_m2} Normal >60 [facility] Comment on above: Order Comment: No: D o not add to previous draw Performed By: #### 0 0121, 96963, 00342, 55874, 64593 #### [facility] [address] [place] [address], [place] Glucose [Mass/Vol] 102 mg/dL High 70-100 [facility] Comment on above: Order Comment: No: D o not add to previous draw Performed By: #### 0 0121, 83994, 73595, 30473, 66177 #### [facility] [address] [place] [address], [facility] Potassium [Moles/Vol] 3.7 mmol/L Normal 3.5-5.1 [facility] Comment on above: Order Comment: No: D o not add to previous draw Performed By: #### 0 0121, 36439, 93678, 82113, 11224 #### [facility] [address] [place] [address], [facility] Sodium [Moles/Vol] 135 mmol/L Low 136-145 [facility] Comment on above: Order Comment: No: D o not add to previous draw Performed By: #### 0 0121, 66599, 85544, 52889, 83963 #### [facility] [address] [place] [address], [facility] Urea nitrogen [Mass/Vol] 18 mg/dL Normal 7-25 [facility] Comment on above: Order Comment: No: D o not add to previous draw Performed By: #### 0 0121, 57385, 61842, 81050, 76087 #### [facility] [address] [place], [place] [id number] [place] [address] CBC COMPLETE BLOOD COUNTon 0 - Erythrocyte distribution width (RBC) [Ratio] 12.9 % Normal 11.5-15.0 [facility] Comment on above: Order Comment: No: D o not add to previous draw Performed By: #### 0 0121, 59752, 20576, 37906, 50312 #### [facility] [address] [place] [address], [facility] Hematocrit (Bld) [Volume fraction] 50.6 % High 39.0-50.0 [facility] Comment on above: Order Comment: No: D o not add to previous draw Performed By: #### 0 0121, 98353, 72070, 55333, 27838 #### [facility] [address] [place] [address], [facility] Hemoglobin (Bld) [Mass/Vol] 16.1 g/dL Normal 13.0-17.0 [facility] Comment on above: Order Comment: No: D o not add to previous draw Performed By: #### 0 0121, 67317, 23267, 05216, 76568 #### [facility] [address] [place] [address], [facility] MCH (RBC) [Entitic mass] 28.6 pg Normal 27.0-33.0 [facility] Comment on above: Order Comment: No: D o not add to previous draw Performed By: #### 0 0121, 88412, 67891, 02166, 55707 #### [facility] [address] [place] [address], [facility] MCHC (RBC) [Mass/Vol] 31.8 g/dL Low 32.0-35.0 [facility] Comment on above: Order Comment: No: D o not add to previous draw Performed By: #### 0 0121, 75988, 37616, 11146, 42838 #### [facility] [address] [facility] [place] [address], [facility] MCV (RBC) [Entitic vol] 90.0 fL Normal 82.0-98.0 [facility] Comment on above: Order Comment: No: D o not add to previous draw Performed By: #### 0 0121, 11498, 61910, 08387, 80158 #### [facility] [address] [facility] [place] [address], [facility] Nucleated RBC/100 WBC (Bld) [Ratio] 0 % Normal 0-0 [facility] Comment on above: Order Comment: No: D o not add to previous draw Performed By: #### 0 0121, 03314, 33293, 59636, 59073 #### [facility] [address] [place] [address], [facility] PLAT CNT 274 10*3/uL Normal 150-400 [facility] Comment on above: Order Comment: No: D o not add to previous draw Performed By: #### 0 0121, 47170, 94084, 85314, 73860 #### [facility] [address] [place] [address], [facility] RBC (Bld) [#/Vol] 5.62 10*6/uL Normal 4.20-5.70 [facility] Comment on above: Order Comment: No: D o not add to previous draw Performed By: #### 0 0121, 84333, 20908, 26040, 21399 #### [facility] [address] [facility] [place] [address], [facility] WBC (Bld) [#/Vol] 9.65 10*3/uL Normal 4.00-10.60 [facility] Comment on above: Order Comment: No: D o not add to previous draw Performed By: #### 0 0121, 68785, 59251, 50759, 46259 #### [facility] [address] Cardiovascular Lab Reporton 03-17-2019 Cardiovascular Lab Report [facility] #: [id number] Department of Physician: Madan Parsons MAmanda Division of Service Date: 03/16/2019 Cardiology Birthdate: 1965 Adult Cardiovascular Room #: 3AB [id number] [facility] [address] [place] [address] Cardiovascular Laboratory Report CLINICAL PRESENTATION: The patient is a 53-year-old male, who was transferred from the [facility], due to his symptoms of shortness [...] guidance and a micropuncture access technique, a 6-Moldovan sheath was placed in the right internal jugular vein. A Clark catheter was then advanced under fluoroscopic hemodynamic monitor to the right atrium. Pressure was obtained in the right atrium, right ventricle, pulmonary artery, pulmonary capillary wedge position. Oxygen saturations drawn from the pulmonary artery and the Nanci cardiac output and cardiac index were calculated. The Clark catheter was then removed. Next, a 6-Moldovan Terumo Glidesheath slender was placed in the right radial artery. The radial anti-vasospasm cocktail of nitroglycerin 100 mcg was administered through the sheath. All catheter exchanges were made over the Magic Torque guidewire. A 5-Moldovan [place] catheter was used to engage the left [...] Day M.D. Date Trans: 03/17/2019 05:03 Jhoan/bessie [id number] cc: Titus Villegas M.D. [address] [address] Normal [facility] MAGNESIUM BLOODon 03-17-2019 Magnesium [Mass/Vol] 2.2 mg/dL Normal 1.9-2.7 [facility] Comment on above: Order Comment: No: D o not add to previous draw Performed By: #### 0 0121, 69478, 50844, 70594, 08161 #### [facility] [address] UFH HEPARIN ASSAYon 03-17-20 19 UNFRACTIONATED HEPARIN 0.30 IU/mL Normal 0.30-0.70 [facility] Comment on above: Result Comment: [place] roxaban and Apixaban will interfere with the anti Xa assay used to monitor UFH and LMWH. Performed By: #### 0 0121, 63848, 51492, 85536, 99179 #### [facility] [address] [place] [address], [facility] APTTon 03-16-2019 aPTT Coag (Bld) [Time] 63.7 s High 25.0-35.0 [facility] Comment on above: Order Comment: No: [...] OF HEPARIN. Performed By: #### 0 0121, 66469, 15646, 77638, 24155 #### [facility] [address] [place] [address], [facility] aPTT Coag (Bld) [Time] 87.5 s Critically high 25.0-35.0 [facility] Comment on above: Order Comment: No: [...] OF HEPARIN. Performed By: #### 0 0121, 54148, 80389, 47216, 23118 #### [facility] [address] [place] [address], [facility] Cardiovascular Lab Reporton 03-16-2019 Cardiovascular Lab Report [facility] Patient Name: [facility] Jeri MR #: [id number] Department of Physician: Ilan Danielson MD Division of Service Date: 03/16/2019 Cardiology Birthdate: 1965 Adult Cardiovascular Room #: 3AB [id number] [place] [address] Cardiovascular Laboratory Report PROCEDURE: Transesophageal echocardiogram and cardioversion. INDICATION: Atrial fibrillation. PROCEDURE IN DETAIL: An informed consent was obtained from the patient after explaining indications, risks, benefits, and alternatives. The patient understood and agreed and signed the consent form. The patient was brought to the label stitcher and GERMAN/transesophageal echocardiogram was performed under conscious [...] Danielson MD Date Trans: 03/16/2019 07:28 P/bessie [id number] cc: Titus Villegas M.D. [address] [address] Normal [facility] ERYTHROPOIETIN [id number] 03-16 ERYTHROPOIETIN 7 mU/mL Normal 4-27 [facility] Comment on above: Order Comment: << [...] benefit from therapy with recombinant EPO ([id number]). Performed by [facility], [address] [place] [id number] [email or web address], Jann Somers MD - Lab. Director UFH HEPARIN ASSAYon 03-16-20 19 UNFRACTIONATED HEPARIN 0.43 IU/mL Normal 0.30-0.70 [facility] Comment on above: Result Comment: [place] roxaban and Apixaban will interfere with the anti Xa assay used to monitor UFH and LMWH. Performed By: #### 0 0121, 10296, 31073, 87321, 78260 #### [facility] [address] UNFRACTIONATED HEPARIN 0.53 IU/mL Normal 0.30-0.70 [facility] Comment on above: Result Comment: [place] roxaban and Apixaban will interfere with the anti Xa assay used to monitor UFH and LMWH. Performed By: #### 0 0121, 17856, 06527, 63871, 52618 #### [facility] [address] [place] [address], [facility] APTTon 03-15-2019 aPTT Coag (Bld) [Time] 74.0 s Critically high 25.0-35.0 [facility] Comment on above: Order Comment: No: [...] AT 2127 Performed By: #### 0 0121, 17384, 26460, 24578, 56802 #### [facility] [address] [facility] [place] [address], [facility] aPTT Coag (Bld) [Time] 84.1 s Critically high 25.0-35.0 [facility] Comment on above: Order Comment: << [...] OF HEPARIN. Performed By: #### 0 0121, 02898, 51631, 81429, 69772 #### [facility] [address] [place] [address], [place] aPTT Coag (Bld) [Time] 59.2 s High 25.0-35.0 [facility] Comment on above: Order Comment: << [...] THIS PURPOSE. Performed By: #### 0 0121, 47086, 42642, 93164, 38004 #### [facility] [address] [place] [address], [facility] BASIC METABOLIC PANELon - Calcium [Mass/Vol] 9.9 mg/dL Normal 8.6-10.3 [facility] Comment on above: Order Comment: << On admission If not done in ED>> No: Do not add to previous draw Performed By: #### 0 0121, 83397, 19902, 52850, 13903 #### [facility] [address] [place] [address], [facility] Chloride [Moles/Vol] 101 mmol/L Normal 98-107 [facility] Comment on above: Order Comment: << On admission If not done in ED>> No: Do not add to previous draw Performed By: #### 0 0121, 73056, 46578, 64345, 75752 #### [facility] [address] [place] [address], [facility] CO2 [Moles/Vol] 25 mmol/L Normal 21-31 [facility] Comment on above: Order Comment: << On admission If not done in ED>> No: Do not add to previous draw Performed By: #### 0 0121, 53912, 43345, 76066, 65242 #### [facility] [address] [place] [address], [facility] Creatinine [Mass/Vol] 1.02 mg/dL Normal 0.70-1.30 [facility] Comment on above: Order Comment: << On admission If not done in ED>> No: Do not add to previous draw Performed By: #### 0 0121, 96595, 63595, 99026, 73786 #### [facility] [address] [place] [address], [facility] GFR/1.73 sq M predicted among blacks MDRD (S/P/Bld) [Vol rate/Area] mL/min/{1.73_m2} Normal >60 [facility] Comment on above: Order Comment: << On admission If not done in ED>> No: Do not add to previous draw Performed By: #### 0 0121, 13496, 14557, 34473, 02024 #### [facility] [address] [place] [address], [facility] GFR/1.73 sq M predicted among non-blacks MDRD (S/P/Bld) [Vol rate/Area] mL/min/{1.73_m2} Normal >60 [facility] Comment on above: Order Comment: << On admission If not done in ED>> No: Do not add to previous draw Performed By: #### 0 0121, 98136, 83971, 01600, 04988 #### [facility] [address] [place] [address], [facility] Glucose [Mass/Vol] 100 mg/dL Normal 70-100 [facility] Comment on above: Order Comment: << On admission If not done in ED>> No: Do not add to previous draw Performed By: #### 0 0121, 47456, 81238, 12638, 81392 #### [facility] [address] [place] [address], [place] Potassium [Moles/Vol] 4.0 mmol/L Normal 3.5-5.1 [facility] Comment on above: Order Comment: << On admission If not done in ED>> No: Do not add to previous draw Performed By: #### 0 0121, 98045, 67339, 91096, 38409 #### [facility] [address] Sodium [Moles/Vol] 135 mmol/L Low 136-145 [facility] Comment on above: Order Comment: << On admission If not done in ED>> No: Do not add to previous draw Performed By: #### 0 0121, 96501, 68437, 07076, 61569 #### [facility] [address] [place] [address], [facility] Urea nitrogen [Mass/Vol] 24 mg/dL Normal 7-25 [facility] Comment on above: Order Comment: << On admission If not done in ED>> No: Do not add to previous draw Performed By: #### 0 0121, 33545, 54588, 01238, 09368 #### [facility] [address] CBC COMPLETE BLOOD COUNTon - Erythrocyte distribution width (RBC) [Ratio] 13.1 % Normal 11.5-15.0 [facility] Comment on above: Order Comment: << On admission If not done in ED>> No: Do not add to previous draw Performed By: #### 0 0121, 16980, 01096, 42858, 66530 #### [facility] [address] Hematocrit (Bld) [Volume fraction] 53.6 % High 39.0-50.0 [facility] Comment on above: Order Comment: << On admission If not done in ED>> No: Do not add to previous draw Performed By: #### 0 0121, 11216, 50716, 45702, 16857 #### [facility] [address] [place] [address], [facility] Hemoglobin (Bld) [Mass/Vol] 17.4 g/dL High 13.0-17.0 [facility] Comment on above: Order Comment: << On admission If not done in ED>> No: Do not add to previous draw Performed By: #### 0 0121, 19937, 85868, 42089, 21005 #### [facility] [address] [facility] [address] MCH (RBC) [Entitic mass] 28.6 pg Normal 27.0-33.0 [facility] Comment on above: Order Comment: << On admission If not done in ED>> No: Do not add to previous draw Performed By: #### 0 0121, 84113, 85418, 61500, 30914 #### [facility] [address] [facility] MCHC (RBC) [Mass/Vol] 32.5 g/dL Normal 32.0-35.0 [facility] Comment on above: Order Comment: << On admission If not done in ED>> No: Do not add to previous draw Performed By: #### 0 0121, 45352, 83124, 99761, 00554 #### [facility] [address] MCV (RBC) [Entitic vol] 88.0 fL Normal 82.0-98.0 [facility] Comment on above: Order Comment: << On admission If not done in ED>> No: Do not add to previous draw Performed By: #### 0 0121, 29877, 93354, 85347, 52892 #### [facility] [address] Nucleated RBC/100 WBC (Bld) [Ratio] 0 % Normal 0-0 [facility] Comment on above: Order Comment: << On admission If not done in ED>> No: Do not add to previous draw Performed By: #### 0 0121, 08364, 75121, 34391, 66120 #### [facility] [address] PLAT CNT 286 10*3/uL Normal 150-400 [facility] Comment on above: Order Comment: << On admission If not done in ED>> No: Do not add to previous draw Performed By: #### 0 0121, 66158, 51853, 78425, 27059 #### [facility] [address] [place] [address], [facility] RBC (Bld) [#/Vol] 6.09 10*6/uL High 4.20-5.70 [facility] Comment on above: Order Comment: << On admission If not done in ED>> No: Do not add to previous draw Performed By: #### 0 0121, 16117, 88798, 63951, 89969 #### [facility] [address] [place] [address], [facility] WBC (Bld) [#/Vol] 10.49 10*3/uL Normal 4.00-10.60 [facility] Comment on above: Order Comment: << On admission If not done in ED>> No: Do not add to previous draw Performed By: #### 0 0121, 45698, 52143, 24852, 08345 #### [facility] [address] [place] [address], [facility] LIPID PROFILEon 03-15-2019 Cholesterol [Mass/Vol] 140 mg/dL Normal 120-200 [facility] Comment on above: Order Comment: << On admission If not done in ED>> No: Do not add to previous draw Result Comment: CHOL ESTEROL REFERENCE RANGE: 20 YEARS AND OLDER CARDIOVASCULAR RISK Less than 200 mg/dl Low Risk 200 to 239 mg/dl Borderline Risk 240 mg/dl and greater High Risk Performed By: #### 0 0121, 25880, 67283, 81831, 45641 #### [facility] [address] [place] [address], [facility] Cholesterol in HDL [Mass/Vol] 38 mg/dL Normal 23-92 [facility] Comment on above: Order Comment: << [...] High Risk Performed By: #### 0 0121, 16022, 26240, 70176, 46408 #### [facility] [address] [place] [address], [facility] Cholesterol in LDL [Mass/Vol] 88 mg/dL Normal 0-130 [facility] Comment on above: Order Comment: << On admission If not done in ED>> No: Do not add to previous draw Result Comment: LDL IS A CALCULATION LDL IS ONLY VALID IF THE TRIG IS LESS THAN 400. Performed By: #### 0 0121, 81205, 39879, 62342, 96299 #### [facility] [address] [place] [address], [facility] Cholesterol.total/Ch olesterol in HDL [Mass ratio] 3.7 {ratio} Normal .0-4.5 [facility] Comment on above: Order Comment: << On admission If not done in ED>> No: Do not add to previous draw Performed By: #### 0 0121, 92165, 33642, 70713, 90888 #### [facility] [address] [place] [address], [facility] NON-HDL CHOLESTEROL 102 mg/dL Normal [facility] Comment on above: Order Comment: << On admission If not done in ED>> No: Do not add to previous draw Performed By: #### 0 0121, 12507, 61887, 44878, 42874 #### [facility] [address] [place] [address], [facility] Triglyceride [Mass/Vol] 70 mg/dL Normal 40-149 [facility] Comment on above: Order Comment: << On admission If not done in ED>> No: Do not add to previous draw Result Comment: TRIG LYCERIDE REFERENCE RANGE: 20 YEARS AND OLDER CARDIOVASCULAR RISK LESS THAN 150 mg/dl LOW RISK 150 TO 199 mg/dl BORDERLINE RISK 200 mg/dl AND GREATER HIGH RISK Performed By: #### 0 0121, 37437, 15154, 35528, 74052 #### [facility] [address] [place] [address], [facility] VLDL CHOL 14 mg/dL Normal 0-40 [facility] Comment on above: Order Comment: << On admission If not done in ED>> No: Do not add to previous draw Performed By: #### 0 0121, 19555, 62996, 08537, 65087 #### [facility] [address] TROPONIN-Ion 03-15-2019 Troponin I.cardiac [Mass/Vol] 0.01 ng/mL Normal 0.00-0.04 [facility] Comment on above: Order Comment: << On admission If not done in ED>> No: Do not add to previous draw Result Comment: REFE RENCE RANGES: 0.00 - 0.04 ng/ml NORMAL 0.05 - 0.50 ng/ml INDETERMINATE > 0.50 ng/ml CONSISTENT WITH AN M.I. Performed By: #### 0 0121, 85120, 34467, 06378, 03427 #### [facility] [address] [facility] [address] UFH HEPARIN ASSAYon 03-15-20 19 UNFRACTIONATED HEPARIN 0.62 IU/mL Normal 0.30-0.70 [facility] Comment on above: Order Comment: No: D o not add to previous draw Result Comment: [place] roxaban and Apixaban will interfere with the anti Xa assay used to monitor UFH and LMWH. Performed By: #### 0 0121, 96249, 68919, 79048, 39901 #### [facility] [address] UNFRACTIONATED HEPARIN 0.92 IU/mL Critically high 0.30-0.70 [facility] Comment on above: Result Comment: [place] roxaban and Apixaban will interfere with the anti Xa assay used to monitor UFH and LMWH. RESULTS CHECKED AND CALLED. ACCURATELY READ BACK BY DAXA MONTEJO RN @ 1309 Performed By: #### 0 0121, 25088, 26551, 11911, 35378 #### [facility] [address] [place] [address], [facility] UNFRACTIONATED HEPARIN 0.90 IU/mL Critically high 0.30-0.70 [facility] Comment on above: Result Comment: [place] roxaban and Apixaban will interfere with the anti Xa assay used to monitor UFH and LMWH. RESULTS CHECKED AND CALLED. ACCURATELY READ BACK BY DAXA MONTEJO RN @ 0822 Performed By: #### 0 0121, 78046, 14797, 03621, 32067 #### [facility] [address] APTTon 03-14-2019 aPTT Coag (Bld) [Time] 32.8 s Normal 25.0-35.0 [facility] Comment on above: Order Comment: No: [...] PURPOSE. Performed By: #### 5 7307 #### [facility] [address] [facility] [address] BNP (B-TYPE NATRIURETIC PEPT PACHECO)on 03-14-2019 Natriuretic peptide B (Bld) [Mass/Vol] 112 pg/mL High 0-100 [facility] Comment on above: Order Comment: If no t done in ED No: Do not add to previous draw Result Comment: Give n the appropriate clinical setting a BNP result of >100 pg/mL indicates congestive heart failure. Performed By: #### 8 5123, 24510 #### [facility] [address] [place] [address], [facility] CBC W/DIFFon 03-14-2019 ABS BASOPHILS 0.1 10*3/uL Normal 0.0-0.2 [facility] Comment on above: Order Comment: If no t done in ED No: Do not add to previous draw Performed By: #### 5 0103 #### [facility] [address] [place] [address], [facility] ABS IMM GRANS 0.1 10*3/uL Normal 0.0-0.2 [facility] Comment on above: Order Comment: If no t done in ED No: Do not add to previous draw Performed By: #### 5 0103 #### [facility] [address] [place] [address], [facility] ABS NEUTROPHILS 7.1 10*3/uL Normal 1.6-7.6 [facility] Comment on above: Order Comment: If no t done in ED No: Do not add to previous draw Performed By: #### 5 0103 #### [facility] [address] [facility] [place] [address], [facility] Basophils/100 WBC (Bld) 1.0 % Normal 0.0-1.0 [facility] Comment on above: Order Comment: If no t done in ED No: Do not add to previous draw Performed By: #### 5 0103 #### [facility] [address] [facility] [place] [address], [facility] Eosinophils (Bld) [#/Vol] 0.3 10*3/uL Normal 0.0-0.5 [facility] Comment on above: Order Comment: If no t done in ED No: Do not add to previous draw Performed By: #### 5 0103 #### [facility] [address] [facility] [place] [address], [facility] Eosinophils/100 WBC (Bld) 2.8 % Normal 0.0-6.0 [facility] Comment on above: Order Comment: If no t done in ED No: Do not add to previous draw Performed By: #### 5 0103 #### [facility] [address] [place] [address], [facility] Erythrocyte distribution width (RBC) [Ratio] 13.2 % Normal 11.5-15.0 [facility] Comment on above: Order Comment: If no t done in ED No: Do not add to previous draw Performed By: #### 5 0103 #### [facility] [address] [place] [address], [facility] Hematocrit (Bld) [Volume fraction] 53.8 % High 39.0-50.0 [facility] Comment on above: Order Comment: If no t done in ED No: Do not add to previous draw Performed By: #### 5 0103 #### [facility] [address] [place] [address], [facility] Hemoglobin (Bld) [Mass/Vol] 17.2 g/dL High 13.0-17.0 [facility] Comment on above: Order Comment: If no t done in ED No: Do not add to previous draw Performed By: #### 5 0103 #### [facility] [address] [place] [address], [facility] IMMATURE GRANS 0.5 % Normal 0.0-1.0 [facility] Comment on above: Order Comment: If no t done in ED No: Do not add to previous draw Performed By: #### 5 0103 #### [facility] [address] [place] [address], [facility] Lymphocytes (Bld) [#/Vol] 2.4 10*3/uL Normal 1.2-4.0 [facility] Comment on above: Order Comment: If no t done in ED No: Do not add to previous draw Performed By: #### 5 0103 #### [facility] [address] [place] [address], [facility] Lymphocytes/100 WBC (Bld) 21.0 % Normal 20.0-45.0 [facility] Comment on above: Order Comment: If no t done in ED No: Do not add to previous draw Performed By: #### 5 0103 #### [facility] [address] [place] [address], [facility] MCH (RBC) [Entitic mass] 28.9 pg Normal 27.0-33.0 [facility] Comment on above: Order Comment: If no t done in ED No: Do not add to previous draw Performed By: #### 5 0103 #### [facility] [address] [place] [address], [facility] MCHC (RBC) [Mass/Vol] 32.0 g/dL Normal 32.0-35.0 [facility] Comment on above: Order Comment: If no t done in ED No: Do not add to previous draw Performed By: #### 5 0103 #### [facility] [address] [place] [address], [facility] MCV (RBC) [Entitic vol] 90.4 fL Normal 82.0-98.0 [facility] Comment on above: Order Comment: If no t done in ED No: Do not add to previous draw Performed By: #### 5 0103 #### [facility] [address] [facility] [place] [address], [facility] Monocytes (Bld) [#/Vol] 1.4 10*3/uL High 0.1-1.0 [facility] Comment on above: Order Comment: If no t done in ED No: Do not add to previous draw Performed By: #### 5 0103 #### [facility] [address] [facility] [place] [address], [facility] MONOS 12.2 % High 5.0-12.0 [facility] Comment on above: Order Comment: If no t done in ED No: Do not add to previous draw Performed By: #### 5 0103 #### [facility] [address] [place] [address], [facility] Neutrophils/100 WBC (Bld) 62.5 % Normal 40.0-72.0 [facility] Comment on above: Order Comment: If no t done in ED No: Do not add to previous draw Performed By: #### 5 0103 #### [facility] [address] [place] [address], [facility] Nucleated RBC/100 WBC (Bld) [Ratio] 0 % Normal 0-0 [facility] Comment on above: Order Comment: If no t done in ED No: Do not add to previous draw Performed By: #### 5 0103 #### [facility] [address] [place] [address], [facility] PLAT CNT 321 10*3/uL Normal 150-400 [facility] Comment on above: Order Comment: If no t done in ED No: Do not add to previous draw Performed By: #### 5 0103 #### [facility] [address] [facility] [place] [address], [facility] RBC (Bld) [#/Vol] 5.95 10*6/uL High 4.20-5.70 [facility] Comment on above: Order Comment: If no t done in ED No: Do not add to previous draw Performed By: #### 5 0103 #### [facility] [address] [place] [address], [facility] WBC (Bld) [#/Vol] 11.32 10*3/uL High 4.00-10.60 [facility] Comment on above: Order Comment: If no t done in ED No: Do not add to previous draw Performed By: #### 5 0103 #### [facility] [address] [facility] [place] [address], [facility] COMP METABOLIC PANELon 03-14 Albumin [Mass/Vol] 4.3 g/dL Normal 3.5-5.7 [facility] Comment on above: Order Comment: << On admission If not done in ED>> No: Do not add to previous draw Performed By: #### 0 0121, 66818, 91020, 51114, 12248 #### [facility] [address] [place] [address], [facility] ALKALINE PHOSPH 59 IU/L Normal 34-104 [facility] Comment on above: Order Comment: << On admission If not done in ED>> No: Do not add to previous draw Performed By: #### 0 0121, 23580, 66369, 54378, 60212 #### [facility] [address] [place] [address], [facility] ALT [Catalytic activity/Vol] 21 U/L Normal 7-52 [facility] Comment on above: Order Comment: << On admission If not done in ED>> No: Do not add to previous draw Performed By: #### 0 0121, 40679, 89127, 20203, 37173 #### [facility] [address] [place] [address], [facility] AST [Catalytic activity/Vol] 26 U/L Normal 13-39 [facility] Comment on above: Order Comment: << On admission If not done in ED>> No: Do not add to previous draw Performed By: #### 0 0121, 86731, 84687, 10919, 56512 #### [facility] [address] [place] [address], [place] Bilirubin [Mass/Vol] 1.1 mg/dL High 0.3-1.0 [facility] Comment on above: Order Comment: << On admission If not done in ED>> No: Do not add to previous draw Performed By: #### 0 0121, 35967, 41194, 54966, 92012 #### [facility] [address] [place] [address], [place] Calcium [Mass/Vol] 10.5 mg/dL High 8.6-10.3 [facility] Comment on above: Order Comment: << On admission If not done in ED>> No: Do not add to previous draw Performed By: #### 0 0121, 03162, 17590, 74749, 75630 #### [facility] [address] [place] [address], [place] Chloride [Moles/Vol] 98 mmol/L Normal 98-107 [facility] Comment on above: Order Comment: << On admission If not done in ED>> No: Do not add to previous draw Performed By: #### 0 0121, 78130, 69780, 32340, 75040 #### [facility] [address] [place] [address], [facility] CO2 [Moles/Vol] 31 mmol/L Normal 21-31 [facility] Comment on above: Order Comment: << On admission If not done in ED>> No: Do not add to previous draw Performed By: #### 0 0121, 67961, 64819, 71932, 41666 #### [facility] [address] [place] [address], [facility] Creatinine [Mass/Vol] 1.36 mg/dL High 0.70-1.30 [facility] Comment on above: Order Comment: << On admission If not done in ED>> No: Do not add to previous draw Performed By: #### 0 0121, 22727, 80029, 02777, 02371 #### [facility] [address] [place] [address], [facility] GFR/1.73 sq M predicted among blacks MDRD (S/P/Bld) [Vol rate/Area] mL/min/{1.73_m2} Normal >60 [facility] Comment on above: Order Comment: << On admission If not done in ED>> No: Do not add to previous draw Performed By: #### 0 0121, 32343, 89905, 15740, 54554 #### [facility] [address] [place] [address], [facility] GFR/1.73 sq M predicted among non-blacks MDRD (S/P/Bld) [Vol rate/Area] 55 ml/min/1.73sq m Abnormal >60 [facility] Comment on above: Order Comment: << On admission If not done in ED>> No: Do not add to previous draw Performed By: #### 0 0121, 17755, 55306, 92362, 52876 #### [facility] [address] [place] [address], [place] Glucose [Mass/Vol] 81 mg/dL Normal 70-100 [facility] Comment on above: Order Comment: << On admission If not done in ED>> No: Do not add to previous draw Performed By: #### 0 0121, 29227, 14816, 34857, 12013 #### [facility] [address] [place] [address], [place] Potassium [Moles/Vol] 3.8 mmol/L Normal 3.5-5.1 [facility] Comment on above: Order Comment: << On admission If not done in ED>> No: Do not add to previous draw Performed By: #### 0 0121, 03789, 14147, 34473, 63176 #### [facility] [address] [place] [address], [place] Protein [Mass/Vol] 7.4 g/dL Normal 6.0-8.3 [facility] Comment on above: Order Comment: << On admission If not done in ED>> No: Do not add to previous draw Performed By: #### 0 0121, 91039, 05860, 95920, 24436 #### [facility] [address] [place] [address], [place] Sodium [Moles/Vol] 138 mmol/L Normal 136-145 [facility] Comment on above: Order Comment: << On admission If not done in ED>> No: Do not add to previous draw Performed By: #### 0 0121, 28084, 94423, 12639, 30610 #### [facility] [address] [place] [address], [place] Urea nitrogen [Mass/Vol] 26 mg/dL High 7-25 [facility] Comment on above: Order Comment: << On admission If not done in ED>> No: Do not add to previous draw Performed By: #### 0 0121, 32569, 12967, 17991, 64839 #### [facility] [address] [place] [address], [facility] FREE T4on 03-14-2019 Free T4 [Mass/Vol] 1.18 ng/dL Normal 0.71-1.85 [facility] Comment on above: Order Comment: If no t done in ED No: Do not add to previous draw Performed By: #### 0 0121, 51733, 05731, 02893, 35196 #### [facility] [address] [place] [address], [facility] HEMOGLOBIN A1Con 03-14-2019 HbA1c (Bld) [Mass fraction] 103 mg/dL Normal 70-126 [facility] Comment on above: Order Comment: If no t done in ED No: Do not add to previous draw Performed By: #### 8 5123, 02748 #### [facility] [address] [place] [address], [facility] HbA1c (Bld) [Mass fraction] 5.2 % Normal 4.0-6.0 [facility] Comment on above: Order Comment: If no t done in ED No: Do not add to previous draw Performed By: #### 8 5123, 37874 #### [facility] [address] [facility] [address] History and Physicalon 03-14 History and Physical MR#: [id number] [facility] Pt. Name: Argelia Crain Admitted: 03/14/2019 Date of : 1965 Attending Physician: Dimitry Lyles M.D. Room #: [id number] Discharge Date: HISTORY AND PHYSICAL CHIEF COMPLAINT: Atrial fibrillation and bilateral lower extremity swelling. HISTORY OF PRESENT ILLNESS: Mr. Whitt is a 53-year-old male with the past medical history of depression and GERD, who was transferred from [facility] for atrial fibrillation and congestive heart failure. The patient states that he has been complaining of progressively worsening bilateral lower extremity swelling for the last four months. The patient states that he has never had bilateral lower extremity swelling like this in the past. The patient was [facility] and was sent to [facility]. At [facility], EKG showed atrial fibrillation with RVR. Chest x-ray showed bilateral pulmonary venous congestion. The patient was admitted for one day at [facility] and was started on metoprolol 75 mg twice a day and Eliquis. The patient was also diuresed with Lasix and put out around 2.8 L of urine. An echocardiogram was done at [facility], which showed a reduced ejection fraction, [...] drug use. 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 FAMILY HISTORY: Father [...] he received metoprolol 75 mg b.i.d. at [facility]. His heart rate is currently in the 80s to 90s. Will start him on metoprolol 12.5 mg BID. The patient received a dose of Eliquis today this morning at [facility], will discontinue Eliquis and start him on heparin drip in the evening around 10 p.m. His TSH and T4 were normal at [facility]. If the patient does not convert back to normal sinus rhythm, the patient will have GERMAN/cardioversion on Saturday. 2. Acute systolic CHF exacerbation: An echocardiogram at [facility] showed reduced ejection fraction. The patient was diuresed with Lasix 40 mg IV twice a day at [place] and diuresed around 2.8 L. Will start [...] Lyles M.D. Date Trans: 03/14/2019 01:33 P/mmo [id number] Normal [facility] MAGNESIUM BLOODon 03-14-2019 Magnesium [Mass/Vol] 2.4 mg/dL Normal 1.9-2.7 [facility] Comment on above: Order Comment: << ON ADMISSION If not done in ED>> No: Do not add to previous draw Performed By: #### 0 0121, 54239, 99775, 12514, 63589 #### [address] PORTABLE CHEST 1 VIEWon 02-28 PORTABLE CHEST 1 VIEW [facility] Department of Radiology [address] [place] [id number] ===== Patient Name: ARGELIA CRAIN : 1965 Sex: M Age: Race: NA Pt. Location: [id number] Patient Status: I Ordered Date: 03/14/2019 10:35:00 [...] findings. Electronically signed by:Yenni Osuna. Transcribed by: [email or web address], User Resident: KAREEM LIAO Electronically Signed by: YENNI OSUNA @ 03/14/2019 04:53 PM I personally read this/these film(s) with this resident Normal [facility] Comment on above: Order Comment: R/O P ulmonary Edema TROPONIN-Ion 03-14-2019 Troponin I.cardiac [Mass/Vol] 0.00 ng/mL Normal 0.00-0.04 [facility] Comment on above: Order Comment: << On admission If not done in ED>> No: Do not add to previous draw Result Comment: REFE RENCE RANGES: 0.00 - 0.14 ng/ml NEGATIVE 0.15 - 0.25 ng/ml INDETERMINATE > 0.25 ng/ml INDICATIVE OF AN M.I. Performed By: #### 0 0121, 32212, 88597, 26383, 85256 #### [facility] [address] [facility] [address] Troponin I.cardiac [Mass/Vol] 0.01 ng/mL Normal 0.00-0.04 [facility] Comment on above: Order Comment: No: D o not add to previous draw Result Comment: REFE RENCE RANGES: 0.00 - 0.04 ng/ml NORMAL 0.05 - 0.50 ng/ml INDETERMINATE > 0.50 ng/ml CONSISTENT WITH AN M.I. Performed By: #### 0 0121, 56092, 95634, 04877, 22271 #### [facility] [address] [place] [address], [facility] TSH3on 03-14-2019 TSH 3RD GENERATION 2.05 uIU/mL Normal 0.34-5.60 [facility] Comment on above: Order Comment: TSH3 with Reflex canceled. TSH3 ordered. Performed By: #### 0 0121, 07188, 55505, 19708, 82489 #### [facility] [address] [facility] [address] CBC With Platelet No Differe ntialon 03-04-2018 Erythrocyte distribution width Auto Ratio (RBC) 13.9 % Normal 11.5-14.5 [facility] Erythrocytes (RBC) 5.34 10*6/uL Normal 4.70-6.10 [facility] Hematocrit (HCT) 49.8 % Normal 42.0-52.0 [facility] Hemoglobin mass conc (Bld) 16.4 g/dL Normal 14.0-18.0 [facility] MCH 30.8 pg Normal 27.0-31.3 [facility] MCHC mass conc (RBC) 33.0 % Normal 33.0-37.0 [facility] MCV 93.3 fL Normal 80.0-100.0 [facility] Platelets 281 10*3/uL Normal 130-400 [facility] WBC (Leukocytes) 9.3 10*3/uL Normal 4.8-10.8 [facility] Comprehensive Metabolic Pane gian 03-04-2018 Alanine aminotransferase (ALT) 20 U/L Normal 0-41 [facility] Albumin 4.6 g/dL Normal 3.9-4.9 [facility] Alkaline phosphatase (ALP) 56 U/L Normal 35-104 [facility] Anion gap 18 mmol/L Critically high 7-13 [facility] Aspartate aminotransferase (AST) 18 U/L Normal 0-40 [facility] Bilirubin (total) 0.7 mg/dL Normal 0.0-1.2 [facility] Calcium 9.4 mg/dL Normal 8.6-10.2 [facility] [...] function. eGFR (MDRD) mL/min/{1.73_m2} Normal >60 [facility] Comment on above: Result Comment: >60 mL/min/1.73m2 EGFR, calc. for ages 18 and older using theMDRD formula (not corrected for weight), is valid for stablerenal function. Globulin 2.7 g/dL Normal 2.3-3.5 [facility] Glucose mass conc 91 mg/dL Normal 74-109 [facility] Potassium molar conc 4.1 mmol/L Normal 3.5-5.1 [facility] Protein 7.3 g/dL Normal 6.4-8.1 [facility] Sodium 141 mmol/L Normal 132-144 [facility] Urea nitrogen 15 mg/dL Normal 6-20 [facility] Hemoglobin A1con 03-04-2018 Hemoglobin A1c/Hemoglobin.total mass fraction (Bld) 5.5 % Normal 4.8-5.9 [facility] Lipid Panelon 03-04-2018 Cholesterol 167 mg/dL Normal 0-199 [facility] Comment on above: Result Comment: ATP III Cholesterol classification is Desirable. HDL Cholesterol 47 mg/dL Normal 40-59 [facility] Comment on above: [...] CHD LDL Cholesterol 99 mg/dL Normal 0-129 [facility] Comment on above: [...] 03-04-2018 Thyroxine Free 1.54 ng/dL Normal 0.93-1.70 [facility] Vital Signs Date Time Vital Sign Value Performing Clinician Facility 11-09-2024 16:35-0500 Body height 190.5 cm Everette Buddy DO Work Phone: [facility] 11-09-2024 16:35-0500 Body mass index (BMI) [Ratio] 34.37 kg/m2 Everette Buddy DO Work Phone: [facility] 11-09-2024 16:35-0500 Body weight 124.74 kg Everette Buddy DO Work Phone: [facility] 11-09-2024 16:35-0500 Diastolic blood pressure 80 mm[Hg] Everette Buddy DO Work Phone: [facility] 11-09-2024 16:35-0500 Heart rate 84 /min Everette Buddy DO Work Phone: [facility] 11-09-2024 16:35-0500 SaO2% (BldA) [Mass fraction] 95 % Everette Buddy DO Work Phone: [facility] 11-09-2024 16:35-0500 Systolic blood pressure 126 mm[Hg] Everette Buddy DO Work Phone: [facility] 03-21-2019 15:41-0400 Respiratory rate 16 /min TITUS VILLEGAS [facility] Comment on above: Performed By: #### 55096, 06749, 04660, 41090, 61601 #### [facility] [place] [address], [facility] 03-21-2019 06:18-0400 Respiratory rate 16 /min TITUS HOY [facility] Comment on above: Performed By: #### 03609, 21702, 36897, 07037, 83462 #### [facility] [address] [place] [address], [facility] 03-20-2019 15:18-0400 Respiratory rate 16 /min TITUS HOY [facility] Comment on above: Performed By: #### 80430, 65155, 70791, 41817, 27792 #### [facility] [address] [place] [address], [facility] 03-20-2019 06:10-0400 Respiratory rate 16 /min TITUS HOY [facility] Comment on above: Performed By: #### 55515, 09285, 96031, 30780, 07184 #### [facility] [address] [place] [address], [facility] 03-20-2019 01:22-0400 Respiratory rate 16 /min TITUS HOY [facility] Comment on above: Performed By: #### 79196, 41532, 67963, 93768, 08333 #### [facility] [address] [place] [address], [facility] 03-19-2019 22:02-0400 Respiratory rate 16 /min TITUS HOY [facility] Comment on above: Performed By: #### 22820 #### [facility] [address] [place] [address], [facility] 03-19-2019 20:06-0400 Respiratory rate 16 /min TITUS HOY [facility] Comment on above: Performed By: #### 92077, 84644 ####[facility] [place] [address], [facility] 03-19-2019 18:48-0400 Respiratory rate 16 /min TITUS HOY [facility] Comment on above: Order Comment: R/O Pulmonary Edema Performed By: #### 8 9421, 61968 ####[place] [address] [place] [address], [facility] Encounters Encounter Date Encounter Type Care Provider Facility Start: 01-04-2025 End: 01-04-2025 ambulatory [facility] Start: 11-09-2024 End: 11-09-2024 Office outpatient new [...] JERAMIE MCGEE Start: 06-26-2024 End: 06-26-2024 ambulatory [facility] Start: 05-05-2024 Evaluation and management of inpatient [facility] Start: 05-05-2024 End: 05-06-2024 Evaluation and management of inpatient [facility] Start: 03-26-2024 End: 03-26-2024 ambulatory [facility] Start: 02-28-2024 End: 02-28-2024 ambulatory [facility] Start: 02-05-2023 End: 02-06-2023 ambulatory [...] abnormal findings DR TITUS VILLEGAS . [facility] Start: 04-05-2022 End: 04-06-[address] TITUS VILLEGAS . Facility:[facility] Start: 04-05-2022 End: 04-06-2022 Encounter for general adult medical examination without abnormal findings DR TITUS VILLEGAS . Facility:[facility] Start: 03-08-2022 End: 03-09-[address] MELIDA CUELLAR Facility:[facility] Start: 05-12-2019 End: 05-13-2019 Patient encounter procedure ILAN DANIELSON Facility:[facility] Start: 03-14-2019 End: 03-27-2019 Evaluation and management of inpatient TITUS VILLEGAS Facility:[facility] Procedures Date Procedure Procedure Detail Performing Clinician Start: 04-05-[address] MELIDA CUELLAR Comment on above: Performed By: #### P [facility] ####[address] [place], [place] [address]HcDr. Leonie Beckham Start: 03-19-2019 DESTRUCTION OF CONDU [...] on above: Performed By: #### 0 [id number], [id number], [id number], [id number], [id number] #### [place] [address], [facility] Start: 03-16-2019 MEASURE CARDIAC SAMP L \T\ PRESSURE, BILATERAL, PERC KRYS DAY Start: 03-16-2019 FLUOROSCOPY OF LEFT HEART USING OTHER CONTRAST KRYS DAY Start: 03-16-2019 FLUOROSCOPY OF MULTI PLE CORONARY ARTERIES USING OTH CONTRAST KRYS DAY Start: 03-16-2019 Yazidi of Cardi ac Rhythm, Single ILAN DANIELSON Plan of Treatment Date Care Activity Detail Author Start: 11-09-2024 End: 11-09-2024 Patient encounter procedure 11/09/2024 4:30 PM EST Office Visit JERAMIE [facility]CGEE [address] [place] [address] Everette Goodwin DO [address] [place] [address] Arrived JERAMIE MCGEE Comment on above: Arrived Start: 05-31-2024 Influenza vaccination Influenza Vacc ine (#1) [facility] Start: 1965 Screening for malign ant neoplasm of colon [facility] Immunizations Immunization Date Immunization Notes Care Provider Dwight carlsonjunaid 10-07-2021 influenza virus vacc ine, unspecified formulation Everette Goodwin DO Work Phone: [facility] Payers Date Payer Category Payer [facility] BCBS [id number] 1964 Unknown [id number] .[id number]. 2.647 1964 Unknown [id number] 2.0.1.497060.3.579. 2.647 1964 Unknown [id number] .1.889443.3.579. 2.59 1964 Unknown [id number] ..1.261289.3.579. 2.593 1964 Unknown [id number] .1.273493.3.579. 2.593 1964 Unknown [id number] .0.1.095899.3.579. 2.593 1964 Unknown [id number] 2.0.1.962732.3.579. 2.593 1964 Unknown [id number] 2..1.064113.3.579. 2.593 1964 Unknown [id number] 2.0.1.620975.3.579. 2.593 1964 Unknown [id number] 2.16.840.1.898031.3.579. 2.593 1964 Unknown [id number] 2.16.840.1.906223.3.579. 2.593 1964 Unknown [id number] 2.16.840.1.769471.3.579. 2.593 1964 Unknown [id number] 2.16.840.1.877189.3.579. 2.593 1964 Unknown [id number] 2.16.840.1.288433.3.579. 2.593 1964 Unknown [id number] 2.16.840.1.217255.3.579. 2.593 1964 Unknown [id number] 2.16.840.1.006944.3.579. 2.593 1964 Unknown [id number] 2.16.840.1.114823.3.579. 2.593 1964 Unknown [id number] 2.16.840.1.963193.3.579. 2.593 1964 Unknown [id number] 2.16.840.1.862507.3.579. 2.1259 1960 Self-pay 1960 Unknown [id number] Social History Date Type Detail Facility Tobacco smoking stat [facility] Tobacco smoking consumption unknown [facility] Start: 1965 Sex assigned at Not on file [facility] Start: 11-09-2024 Gender identity Not [facility] file [facility] Start: 11-09-[address] [facility] Never smoked tobacco [facility] Start: 11-09-2024 Tobacco use and exposure Smokeless t obacco non-user [facility] Start: 11-09-2024 History of Social function [facility] Clinical Notes 11-29-2020 to 01-04-2025 Everette Goodwin DO - 11/09/2024 4:30 PM EST Note Date & Type Note Facility 01-04-2025 Note [place] Cardiology - [facility] Subjective Tracie Crain is a [...] When compared with ECG of 21-MAR-2019 20:42, HI interval has decreased, Vent. rate has increased [...] patient was conve (more content not included)... [facility] 11-09-2024 History of Present illness Narrative Images [...] 4.5 years old. He got it from [place] which is now [facility]. NO other new [...] was counseled on the risks of stroke, DE, and sudden with ZULEIMA, along with the [...] a new machine documented in this encounter [facility] 06-26-2024 Note [place] Cardiology - [facility] Subjective Tracie Crain is a [...] When compared with ECG of 21-MAR-2019 20:42, HI interval has decreased, Vent. rate has increased [...] pressures consistent with (more content not included)... [facility] 05-06-2024 Note 05/06/24 1003 Admission Assessment Questions [...] Status Interested Does the patient have a immigration case manager assigned to them through their insurance? No [...] link and activate MyChart? MyChart already active [facility] 05-05-2024 Note Interventional cardi ology update Patient's remains with a 4 Moldovan arterial sheath in right KNOT TIER. ACT has been trending down last checked results with at 154. Patient evaluated bedside and arterial sheath removed with manual pressure for hemostasis. No hematoma formation. Patient tolerated well. 1 mg of Versed and 25 mcg of fentanyl administered IV. Recommend strict bedrest until 3 AM. Iasura Lee MD PGY-7 Interventional Breaker Tender [facility] 05-05-2024 Note Patient: Tracie kaminski Procedure Information Date/Time: 05/05/24 1330 Procedures: Atrial septal defect closure - PC APPROVED 05/05 Right heart cath Location: [facility] WORK[facility] 3 / [facility] (Cath) Providers: Viet Salas [...] consented to blood products. Additional Equipment Requests [facility] 03-26-2024 Note [place] Cardiology - [facility] Subjective Tracie Crain is a [...] When compared with ECG of 21-MAR-2019 20:42, HI interval has decreased, Vent. rate has increased [...] in follow up. (more content not included)... [facility] 02-28-2024 Note Patient: Tracie kaminski Procedure Information Date/Time: 02/28/24 1300 Procedure: Right heart cath Location: [facility] 3 / [facility] (Cath) Providers: Viet Salas MD Clinical information reviewed: Allergies Meds Physical Exam Airway Mallampati: II TM distance: >3 FB Neck ROM: full Cardiovascular Rhythm: regular Rate: normal Dental Pulmonary Abdominal Anesthesia Plan ASA 3 other (Conscious sedation.) Anesthetic plan and risks discussed with patient. Use of blood products discussed with patient who consented to blood products. Additional Equipment Requests [facility] 02-28-2024 Note Brief procedure note : GERMAN [...] Full report to follow Dr. Brook Arenas [facility] 02-28-2024 Note Patient: Tracie kaminski Procedure Information Date/Time: 02/28/24 1300 Procedure: GERMAN Location: [facility] WORK[facility] / [facility] (Cath) Providers: Brook Arenas Clinical information reviewed: Allergies Meds Physical Exam Airway Mallampati: II Neck ROM: full Cardiovascular Rhythm: regular Rate: normal Dental Pulmonary Breath sounds clear to auscultation Abdominal - normal exam Anesthesia Plan ASA 3 CSE Anesthetic plan and risks discussed with patient. [facility] 11-29-2020 Note Chief Complaint referral for nevus [...] vaccine, inactivated - Not Given Patient Refuses [facility] Comment on above: Result Comment: Elec [...] Records Found Hospital Course Note MR#: [id number] [facility] Pt. Name: Tracie Crain Admitted: 03/14/2019 Discharged: 03/27/2019 Date of : 1965 Physician: Timbo Black MD DISCHARGE SUMMARY HISTORY: This is a 53-year-old male who was transferred from [facility] for further management of new-onset atrial fibrillation and systolic heart failure. Over the past 2 weeks, he had been having symptoms of lower extremity swelling. He denied chest pain and was very short of breath according to the . At [facility], he was noted to have severe pulmonary venous congestion and was transferred to [facility] after echocardiogram revealed reduced left ventricular [...] section and content) DATE CREATED AUTHOR 03/18/2018 [facility] DATE CREATED AUTHOR AUTHOR'S ORGANIZ ATION 03/02/2020 [facility] DATE CREATED AUTHOR AUTHOR'S ORGANIZ ATION 02/12/2021 [facility] DATE CREATED AUTHOR AUTHOR'S ORGANIZ ATION 02/10/2023 [facility] DATE CREATED AUTHOR AUTHOR'S ORGANIZ ATION 11/11/2024 [facility] DATE CREATED AUTHOR AUTHOR'S ORGANIZ ATION 02/04/2025 [facility] Care Teams (unrecognized sec tion and content) Clinical Data Management Director Relationship Specialty Start Date End Date Titus Villegas MD [address] [place] [address] PCP - General Family Medicine 11/09/24 Clinical Data Management Director Relationship Specialty Start Date End Date Titus Villegas MD [address] [place] [address] PCP - General Family Medicine 11/09/24 Reason [...] BE BASED ON THE PRIMARY CLINICAL RECORDS. [facility] [employer] [facility]. provides no warranty or guarantee of the accuracy or completeness of information in this document.
--- OUTSIDE RECORDS SUMMARY | 2025-04-15 06:57 | XMS_ITS | Clinical Summary ---
Author Organization [facility] Address [address] [place] [address] Care Team Providers Care Cultural Anthropology Professor Name Role Phone Raymundo Vela MD Primary Care Provider [phone] Allergies No known active allergies Medications ferrous sulfate 325 (65 Fe) MG tablet Take 325 mg by mouth two times daily. Active levothyroxine (Synthroid, Levoxyl) 50 mcg tablet Take 1 tablet by mouth in the morning. Active sertraline (Zoloft) 50 mg tablet Take 50 mg by mouth in the morning. Active liothyronine (Cytomel) 5 mcg tablet Take 5 mcg by mouth in the morning. 4 Active aspirin 81 mg EC tabletIndications :Status post mitral valve repair Take 1 tablet (81 mg) by mouth once daily as directed. 90 tablet 3 4 Active spironolactone (Aldactone) 25 mg tabletIndications :Heart failure with improved ejection fraction (HFimpEF) (CMS/HCC) Take 1 tablet (25 mg) by mouth three times daily. 270 tablet 3 4 06/26/20 25 Active hydroCHLOROthiazi de (HYDRODiuril) 25 mg tabletIndications :Heart failure with improved ejection fraction (HFimpEF) (CMS/HCC),Chronic right-sided congestive heart failure (CMS/HCC),Pulmona ry hypertension (CMS/HCC) Take 1 tablet (25 mg) by mouth in the morning. 90 tablet 3 5 01/05/20 26 Active potassium chloride CR (Klor-Con M20) 20 mEq ER tabletIndications :Heart failure with improved ejection fraction (HFimpEF) (CMS/HCC),Chronic right-sided congestive heart failure (CMS/HCC),Pulmona ry hypertension (CMS/HCC) Take 1 tablet (20 mEq) by mouth three times daily. Do not crush or chew. 270 tablet 3 5 01/05/20 26 Active metoprolol succinate XL (Toprol-XL) 50 mg 24 hr tabletIndications :Heart failure with improved ejection fraction (HFimpEF) (CMS/HCC) Take 1 tablet (50 mg) by mouth once daily as directed. 90 tablet 3 5 Active bumetanide (Bumex) 2 mg tabletIndications :Heart failure with improved ejection fraction (HFimpEF) (CMS/HCC),Pulmona ry hypertension (CMS/HCC) Take 1.5 tablets (3 mg) by mouth three times daily. 405 tablet 3 5 04/07/20 26 Active bumetanide (Bumex) 2 mg tabletIndications :Heart failure with improved ejection fraction (HFimpEF) (CMS/HCC),Pulmona ry hypertension (CMS/HCC) Take 1.5 tablets (3 mg) by mouth three times daily. 405 tablet 3 4 04/12/20 25 Discontinu ed(Reorder ) Active Problems Problem Noted Date Diagnosed Date Abnormal result of cardiovas cular function study, unspecified 06/24/2024 Cardiomegaly 06/24/2024 Chronic right-sided congestive heart failure ASD (atrial septal defect) 03/26/2024 Pulmonary hypertension 01/24/2024 Nonrheumatic tricuspid valve regurgitation 01/23 Benign neoplasm of soft tissue 10/23/2023 0 10/23/2023 Hypothyroidism, unspecified 10/23/202310/01 Neoplasm of uncertain behavior of skin of back 0 10/23/2023 10/23/2023 Peripheral venous insufficiency 10/23/2023 10/23/2023 Right-sided heart failure 10/16/2022 Status post mitral valve repair 10/16/2022 A-fib 10/16/2022 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 [address] [place] [address] Jayna Flores MA Heart failure with improved ejection fraction (HFimpEF) ([facility]) (Primary Dx); Pulmonary hypertension (CMS/HCC) 02/09/2025 Refill [facility] [address] [place] [address] Annamaria Acosta MA Heart failure with improved ejection fraction (HFimpEF) (CMS/HCC) 01/29/2025 Telephone [facility] [address] [place] [facility] [place] [phone] Jayna Flores MA from Last 3 Months Family History Medical History Relation Name Comments Alzheimer's disease Mother Atrial fibrillation Mother Relation Name Status Comments Father Mother Alive Social History Tobacco Use Types Packs/Day Years Used Date Smoking Tobacco: Never Smokeless Tobacco: Never Tobacco Cessation:Counseling Given: Not Answered Alcohol Use Standard Drinks/Week Comments Not Currently 0 (1 standard drink = 0.6 oz pur e alcohol) [facility] Utilities Answer Date Recorded In the past 12 months has e [employer], gas, oil, or water [employer] threatened to shut off services in your [...] place to sleep or slept in a mcc (including now)? Patient declined 05/06/2024 Hunger Vital [...] Sign Reading Time Taken Comments Blood Pressure 108/72 01/04/2025 9:31 AM EDT Pulse 80 01/04/2025 9:31 AM EDT Temperature 37 C (98.6 F) 05/06/2024 8:00 AM EDT Respiratory Rate 24 05/06/2024 8:00 AM EDT Oxygen Saturation 97% 01/04/2025 9:31 AM EDT Inhaled Oxygen Concentration - - Weight 140 kg (309 lb) 01/04/2025 9:31 AM EDT Height 190.5 cm (6' 3 ) 01/04/2025 9:31 AM EDT Body Mass Index 38.62 01/04/2025 9:31 AM EDT Plan of Treatment Upcoming Encounters Date Type Department Care Team (Late st Contact Info) Description 04/26/2025 9:00 AM EDT Office Visit [facility] [address] [place] [phone] John Salas MD [address] [facility] [address] [facility] [place] [phone] Health Maintenance Due Date Last Done Comments CT Colonography 1965 Colonoscopy 1965 Colorectal Cancer Screening 1965 FIT-DNA 1965 FIT 1965 FOBT 1965 Sigmoidoscopy 1965 Depression Screening 1976 Pneumococcal Vaccine: Pediatrics (0 to 5 Years) and At-Risk Patients (6 to 64 Years) (1 of 2 - PCV) 1983 Zoster Vaccines (1 of 2) 2014 COVID-19 Vaccine (4 - 2023-2 5 season) 2024 10/07/2021, 03/21/2021, 02/21/2021 Influenza Vaccine (#1) 2025 , 06/12/2017, 07/04/2016 Adult Tetanus 03/14/2031 03/14/2021 HIB Vaccines Aged Out No longer eligi ble based on patient's age to complete this topic HPV Vaccines Aged Out No longer eligi ble based on patient's age to complete this topic IPV Vaccines Aged Out No longer eligi ble based on patient's age to complete this topic Meningococcal B Vaccine Aged Out No l onger eligible based on patient's age to complete this topic Meningococcal Vaccine Aged Out No gian maribel eligible based on patient's age to complete this topic Rotavirus Vaccines Aged Out No longer eligible based on patient's age to complete this topic Insurance [facility] Advance Directives * Full Code (Latest Code Status on File) Date Activated Date Inactivated Comments 05/05/2024 6:24 PM 05/06/2024 12:44 PM Care Teams Cultural Anthropology Professor Relationship Specialty Start Date End Date Raymundo Vela MD [address] [place], [place] [address] [address] PCP - General 08/21/22
== END 2025-04-15 06:55 | disposition home or self-care (01) ==
LOC: CARD 06:55
PROVIDERS: PCP Family Medicine; Visit Provider Internal Medicine Interventional Cardiology
DX: I50.32 Chronic diastolic (congestive) heart failure (principal); I50.812 Chronic right heart failure; I27.20 Pulmonary hypertension, unspecified; I36.1 Nonrheumatic tricuspid (valve) insufficiency
CPT/HCPCS: 93306

== ENCOUNTER 2025-07-19 14:21 | Outpatient (OUT) | payer BC, SELFPAY ==
--- OUTSIDE RECORDS SUMMARY | 2025-07-19 14:27 | XMS_ITS | CCD ---
Author Organization [facility] Care Team Providers Care Computer Bookkeeper Name Role Phone TITUS VILLEGAS Referring Unavailable SELF, REFERRED Primary Care Unavailable MASPATO, TIMBO Attending Unavailable JIAN SYED Admitting Unavailable [place] Procedure Practitioner Unavailab KRYS De La Torre Surgeon Unavailable [place] Procedure Practitioner Unavailab le ILAN CABA Surgeon Unavailable [place] Procedure Practitioner Unavailab rishabh BLACK, TIMBO Surgeon Unavailable [place] Procedure Practitioner Unavailab MAY De La Rosa [...] Unavailable MOUKARBEL, DR LLANOS Admitting Unavailable LALYKAI OBRIEN Consulting Unavailable HOY ., DR QURESHI Primary Care Unavailable KAI RUFFIN Attending Unavailable LALY, KAI Admitting Unavailable MOUKARBEL, DR LLANOS Consulting Unavailable HOY ., DR QURESHI Primary Care Unavailable [facility], DR PACK Attending Unavailable MISC, DR PACK [...] Unavailable WE[facility], DR MELIDA Owen Admitting Unavailable [facility], DR LYNDA Gonzalez Consulting Unavailable WEST, DR MELIDA Owen Consulting Unavailable HOY ., DR QURESHI Primary Care Unavailable WEST, DR MELIDA Owen Attending Unavailable WEST, DR MELIDA Owen Admitting Unavailable Titus Villegas MD Primary Care Provider [phone] EVERETTE GOODWIN Attending Unavailable MOUKARBEL, VIET Attending Unavailable MOUKARBEL, VIET Attending Unavailable Medications Current Medications Medication Drug [...] tricuspid (valve) insufficiency] Onset: 11-15-2022 Chronic Other lower respiratory disease (2 sources) [...] unspecified; Translations: [Atrial septal defect, unspecified] Onset: 5 Varicose veins of lower extremity (5 sources) Varicose veins of bilateral lower extremities with pain; Translations: [VARICOSE VNS UZIEL LOW EXTREM W/PAIN] Onset: 2 Episodic Results Test Name Value Interpretation Reference Range Facility Letter (Out)on 07-08-2025 Letter (Out) [id number] ParasAdeel Wilcox 1965 M Date Provider Department Center 07/08/2025 None-None [facility] AUTH DE Medical C Family History Problem Relation Age of Onset Atrial fibrillation Mother Alzheimer's disease Mother Family Status - Relation Status Age at Mother Alive Father Normal [facility] Office Visiton 04-26-2025 Follow-up visit [id number] ParasAdeel Wilcox 1965 Date Provider Department Center 04/26/2025 VIET MARIA RUSLAN Og Family History Problem Relation Age of Onset Atrial fibrillation Mother Alzheimer's disease Mother Family Status - Relation Status Age at Mother Alive Father Level of Service:24106 [place] OFFICE/OUTPATIENT ESTABLISHED HIGH MDM 40 MIN Normal [facility] Orders Onlyon 04-15-2025 Orders Only [id number] ParasAdeel Wilcox 1965 M Date Provider Department Center 04/15/2025 [id number], [facility] RUSLAN [facility] Family History Problem Relation Age of Onset Atrial fibrillation Mother Alzheimer's disease Mother Family Status - Relation Status Age at Mother Alive Father Normal [facility] 36on 01-29-2025 35 MD Jayna Al MA Please have him reduce hydrochlorothiazide to half tablet once daily and get a repeat BMP in 2 weeks. Advised patient to reduce hydrochlorothiazide and have repeat blood work Normal [facility] Office Visiton 01-04-2025 Follow-up visit [id number] WapakonetaAdeel karimi 1965 [facility] Provider Department Center 01/04/2025 VIET MARIA Family History Problem Relation Age of Onset Atrial fibrillation Mother Alzheimer's disease Mother Family Status - Relation Status Age at Mother Alive Father Level of Service:60780 [place] OFFICE/OUTPATIENT ESTABLISHED MOD MDM 30 MIN Normal [facility] ECHOCARDIO M/2D COMPLETEon 0 02-05-2023 ECHOCARDIO M/2D COMPLETE Patient: TRACIE CRAIN Exam Date: 02/05/2023 : 1965 Gender:M Ordering : DR VIET SALAS M.D. Admission #: [id number] Family : Order #: [id number] CLICK HERE TO VIEW EXAM ECHOCARDIOGRAM REPORT [...] Jenkins M.D. on 02/05/2023 at 16:31 Normal [facility] BNPon 12-19-2022 Natriuretic peptide B (Bld) [Mass/Vol] 859.0 pg/mL Normal <=900.0 [facility] Comment on above: Performed By: #### B MP, BNP #### [facility] [address] [address] [address] Leonie Beckham PROF CHEM 8 (BAS METB)on Anion gap [Moles/Vol] 9.9 mmol/L Normal [facility] Comment on above: Performed By: #### B MP, BNP #### [facility] [address] [address] [address] Leonie Beckham Calcium [Mass/Vol] 9.4 mg/dL Normal 8.5-10.1 [facility] Comment on above: Performed By: #### B MP, BNP #### [facility] [address] [place] [address] Dr. Leonie Beckham Chloride [Moles/Vol] 102 mmol/L Normal 98-107 [facility] Comment on above: Performed By: #### B MP, BNP #### [facility] [address] [address] [address] Leonie Beckham CO2 [Moles/Vol] 32.0 mmol/L Normal 21.0-32.0 [facility] Comment on above: Performed By: #### B MP, BNP #### [facility] [address] [address] [address] Leonie Beckham Creatinine [Mass/Vol] 1.17 mg/dL Normal 0.70-1.30 [facility] Comment on above: Performed By: #### B MP, BNP #### [facility] [address] [place] [address] Dr. Leonie Beckham EGFR-AF JAPANESE >60 Normal >=60 [facility] Comment on above: Performed By: #### B MP, BNP #### [facility] [address] [place] [address] Dr. Leonie Beckham EGFR-NON AF JAPANESE >60 Normal >=60 [facility] Comment on above: Performed By: #### B MP, BNP #### [facility] [address] [address] [address] Leonie Beckham Glucose [Mass/Vol] 106 mg/dL Normal 74-106 [facility] Comment on above: Performed By: #### B MP, BNP #### [facility] [address] [address] [address] Leonie Beckham Potassium [Moles/Vol] 3.9 mmol/L Normal 3.5-5.1 [facility] Comment on above: Performed By: #### B MP, BNP #### [facility] [address] [address] [address] Leonie Beckham Sodium [Moles/Vol] 140 mmol/L Normal 136-145 [facility] Comment on above: Performed By: #### B MP, BNP #### [facility] [address] [place] [address] Dr. Leonie Beckham Urea nitrogen [Mass/Vol] 25.0 mg/dL Critically high 7.0-18.0 [facility] Comment on above: Performed By: #### B MP, BNP #### [facility] [address] [place] [address] Dr. Leonie Beckham Urea nitrogen/Creatinine [Mass ratio] 21.4 mg/mg Normal [facility] Comment on above: Performed By: #### B MP, BNP #### [facility] [address] [place] [address] Dr. Leonie Beckham ECHOCARDIO M/2D COMPLETEon 0 11-09-2022 ECHOCARDIO M/2D COMPLETE Patient: TRACIE CRAIN Exam Date: 11/09/2022 : 1965 Gender:M Ordering : DR VIET SALAS M.D. Admission #: [id number] Family : DR TITUS VILLEGAS . Order #: [id number] CLICK HERE TO VIEW EXAM ECHOCARDIOGRAM REPORT [...] Salas M.D. on 11/09/2022 at 16:31 Normal [facility] PROF CHEM 8 (BAS METB)on Anion gap [Moles/Vol] 8.0 mmol/L Normal [facility] Comment on above: Performed By: #### B MP #### [facility] [address] [place] [address] Dr. Leonie Beckham Calcium [Mass/Vol] 8.6 mg/dL Normal 8.5-10.1 [facility] Comment on above: Performed By: #### B MP #### [facility] [address] [place] [address] Dr. Leonie Beckham Chloride [Moles/Vol] 102 mmol/L Normal 98-107 [facility] Comment on above: Performed By: #### B MP #### [facility] [address] [address] [address] Leonie Beckham CO2 [Moles/Vol] 31.5 mmol/L Normal 21.0-32.0 [facility] Comment on above: Performed By: #### B MP #### [facility] [address] [address] [address] Leonie Beckham Creatinine [Mass/Vol] 1.13 mg/dL Normal 0.70-1.30 [facility] Comment on above: Performed By: #### B MP #### [facility] [address] [address] [address] Leonie Beckham EGFR-AF JAPANESE >60 Normal >=60 [facility] Comment on above: Performed By: #### B MP #### [facility] [address] [address] [address] Leonie Beckham EGFR-NON AF JAPANESE >60 Normal >=60 [facility] Comment on above: Performed By: #### B MP #### [facility] [address] [address] [address] Leonie Beckham Glucose [Mass/Vol] 100 mg/dL Normal 74-106 [facility] Comment on above: Performed By: #### B MP #### [facility] [address] [address] [address] Leonie Beckham Potassium [Moles/Vol] 3.5 mmol/L Normal 3.5-5.1 [facility] Comment on above: Performed By: #### B MP #### [facility] [address] [address] [address] Leonie Beckham Sodium [Moles/Vol] 138 mmol/L Normal 136-145 [facility] Comment on above: Performed By: #### B MP #### [facility] [address] [address] [address] Leonie Beckham Urea nitrogen [Mass/Vol] 24.0 mg/dL Critically high 7.0-18.0 [facility] Comment on above: Performed By: #### B MP #### [facility] [address] [address] [address] Leonie Beckham Urea nitrogen/Creatinine [Mass ratio] 21.2 mg/mg Normal [facility] Comment on above: Performed By: #### B MP #### [facility] [address] [address] [address] Leonie Beckham ECHOCARDIO M/2D COMPLETEon 0 06-27-2022 ECHOCARDIO M/2D COMPLETE Patient: TRACIE CRAIN Exam Date: 06/27/2022 : 1965 Gender:M Ordering : KAI RUFFIN [facility] Admission #: [id number] Family : DR TITUS VILLEGAS . Order #: [id number] CLICK HERE TO VIEW EXAM ECHOCARDIOGRAM REPORT [...] Salas M.D. on 06/27/2022 at 18:23 Normal [facility] VC CONSULT FOLLOWUPon 2021 VC CONSULT FOLLOWUP Patient: TRACIE CRAIN Exam Date: 06/13/2022 : 1965 Gender:M Ordering : DR MELIDA CUELLAR M.D. Admission #: [id number] Family : Order #: [id number] CLICK HERE TO VIEW EXAM RADIOLOGY REPORT [...] Cuellar MD on 06/13/2022 at 14:59 Normal [facility] VC EXT VENOUS RT LIMITEDon 0 06-13-2022 VC EXT VENOUS RT LIMITED Patient: TRACIE CRAIN Exam Date: 06/13/2022 : 1965 Gender:M Ordering : DR MELIDA CUELLAR M.D. Admission #: [id number] Family : Order #: [id number] CLICK HERE TO VIEW EXAM RADIOLOGY REPORT [...] veins in the medial right leg. [employer] manager distal medial also thrombosed 3.1 mm [...] Cuellar MD on 06/13/2022 at 15:42 Normal [facility] VC INJ FOAM SCLERO W US MLTI on 06-07-2022 VC INJ FOAM SCLERO W US MLTI Patient: TRACIE CRAIN Exam Date: 06/07/2022 : 1965 Gender:M Ordering : DR MELIDA CUELLAR M.D. Admission #: [id number] Family : Order #: [id number] CLICK HERE TO VIEW EXAM RADIOLOGY REPORT [...] for (more content not included)... Normal [facility] VC CONSULT FOLLOWUPon 2021 VC CONSULT FOLLOWUP Patient: TRACIE CRAIN Exam Date: 06/01/2022 : 1965 Gender:Eduin Ordering : DR MELDIA CUELLAR M.D. Admission #: [id number] Family : Order #: [id number] CLICK HERE TO VIEW EXAM RADIOLOGY REPORT [...] Cuellar MD on 06/01/2022 at 09:48 Normal [facility] VC EXT VENOUS LT LIMITEDon 0 06-01-2022 VC EXT VENOUS LT LIMITED Patient: TRACIE CRAIN Exam Date: 06/01/2022 : 1965 Gender:M Ordering : DR MELIDA CUELLAR M.D. Admission #: [id number] Family : Order #: [id number] CLICK HERE TO VIEW EXAM RADIOLOGY REPORT [...] Melida Cuellar MD on 06/01/2022 at 09:29 [facility] VC INJ FOAM SCLERO W US MLTI on 05-25-2022 VC INJ FOAM SCLERO W US MLTI Patient: TRACIE CRAIN Exam Date: 05/25/2022 : 1965 Gender:M Ordering : DR MELIDA CUELLAR M.D. Admission #: [id number] Family : Order #: [id number] CLICK HERE TO VIEW EXAM RADIOLOGY REPORT [...] Aguilar M.D. on 05/25/2022 at 11:44 Normal [facility] VC CONSULT FOLLOWUPon 2021 VC CONSULT FOLLOWUP Patient: TRACIE CRAIN Exam Date: 05/14/2022 : 1965 Gender:M Ordering : DR MELIDA CUELLAR M.D. Admission #: [id number] Family : Order #: [id number] CLICK HERE TO VIEW EXAM RADIOLOGY REPORT [...] Aguilar M.D. on 05/14/2022 at 09:41 Normal [facility] EXT VENOUS RT LIMITEDon 0 05-14-2022 VC EXT VENOUS RT LIMITED Patient: TRACIE CRAIN Exam Date: 05/14/2022 : 1965 Gender:M Ordering : DR MELIDA CUELLAR M.D. Admission #: [id number] Family : Order #: [id number] CLICK HERE TO VIEW EXAM RADIOLOGY REPORT [...] Aguilar M.D. on 05/14/2022 at 09:35 Normal [facility] VC ENDOVENOUS ABL PERFORATIN G RTon 05-10-2022 VC ENDOVENOUS ABL PERFORATING RT Patient: TRACIE CRAINGabino Exam Date: 05/10/2022 : 1965 Gender:M Ordering : DR MELIDA CUELLAR M.D. Admission #: [id number] Family : Order #: [id number] CLICK HERE TO VIEW EXAM RADIOLOGY REPORT PROCEDURE: VEIN CENTER ENDOVENOUS ABLATION FOR VEIN RIGHT GREAT SAPHENOUS VEIN COMPARISON: None. INDICATIONS: Pain co-occurrent and due to varicose veins of bilateral legs I83.813 OPERATIVE REPORT: Diagnosis: Superficial venous reflux, incompetent perforating veins Procedure: Endovenous laser ablation of the left fitness club manager(s) Procedure: The patient was positioned supine [...] Melida Cuellar MD on 05/10/2022 at 10:50 [facility] VC CONSULT FOLLOWUPon 2021 VC CONSULT FOLLOWUP Patient: TRACIE CRAIN Exam Date: 05/04/2022 : 1965 Gender:M Ordering : DR MELIDA CUELLAR M.D. Admission #: [id number] Family : Order #: [id number] CLICK HERE TO VIEW EXAM RADIOLOGY REPORT [...] Aguilar M.D. on 05/04/2022 at 08:38 Normal [facility] VC EXT VENOUS LT LIMITEDon 0 05-04-2022 VC EXT VENOUS LT LIMITED Patient: TRACIE CRAIN Exam Date: 05/04/2022 : 1965 Gender:M Ordering : DR MELIDA CUELLAR M.D. Admission #: [id number] Family : Order #: [id number] CLICK HERE TO VIEW EXAM RADIOLOGY REPORT [...] Aguilar M.D. on 05/04/2022 at 08:32 Normal [facility] VC ENDOVENOUS ABL 1ST V LTon 04-27-2022 VC ENDOVENOUS ABL 1ST V LT Patient: TRACIE CRAIN Exam Date: 04/27/2022 : 1965 Gender:M Ordering : DR MELIDA CUELLAR M.D. Admission #: [id number] Family : Order #: [id number] CLICK HERE TO VIEW EXAM RADIOLOGY REPORT [...] M.D. on 04/27/2022 at 10:32 Normal [facility] CBC AUTO DIFFon 04-05-2022 BASO # 0.1 103/ul Normal 0.0-0.1 [facility] Comment on above: Performed By: #### C BC ####[facility] [address] [place], [place] [address]HoGabino Beckham Basophils/100 WBC (Bld) 1.2 % Normal 0.2-2.0 [facility] Comment on above: Performed By: #### C BC ####[facility] [address] [id number]. Leonie Beckham EO # 0.3 103/ul Normal 0.0-0.7 [facility] Comment on above: Performed By: #### C BC ####[facility] [address] [id number]. Leonie Beckham Eosinophils/100 WBC (Bld) 3.9 % Normal 0.9-7.0 [facility] Comment on above: Performed By: #### C BC ####[facility] [address] [place], [place] [address]Dr. Leonie Beckham Erythrocyte distribution width (RBC) [Ratio] 13.2 % Normal 11.0-15.0 [facility] Comment on above: Performed By: #### C BC ####[facility] [address] [place], [place] [address]Dr. Leonie Beckham Hematocrit (Bld) [Volume fraction] 43.5 % Normal 42.0-54.0 [facility] Comment on above: Performed By: #### C BC ####[facility] [address] [address]Dr. Leonie Beckham Hemoglobin (Bld) [Mass/Vol] 13.9 g/dL Critically low 14.0-18.0 [facility] Comment on above: Performed By: #### C BC ####[facility] [address] [place], [place] [address]Dr. Leonie Beckham IG # 0.03 10e3/ul Normal 0.00-0.03 [facility] Comment on above: Performed By: #### C BC ####[facility] [address] [address]Dr. Leonie Beckham IG % 0.4 % Normal 0.0-0.5 [facility] Comment on above: Performed By: #### C BC ####[facility] [address] [place], [place] [address]Dr. Leonie Beckham LYMPH # 2.0 103/ul Normal 1.2-3.8 [facility] Comment on above: Performed By: #### C BC ####[facility] [address] [id number]. Leonie Beckham Lymphocytes/100 WBC (Bld) 25.0 % Normal 20.5-60.0 [facility] Comment on above: Performed By: #### C BC ####[facility] [address] [id number]. Leonie Beckham MANUAL DIFF REQ NO Normal [facility] Comment on above: Performed By: #### C BC ####[facility] [address] [address]Dr. Leonie Beckham MCH (RBC) [Entitic mass] 30.2 pg Normal 25.9-34.0 [facility] Comment on above: Performed By: #### C BC ####[facility] [address] [place], [place] [address]Dr. Leonie Beckham MCHC (RBC) [Mass/Vol] 32.0 g/dL Normal 29.9-35.2 [facility] Comment on above: Performed By: #### C BC ####[facility] [address] [address]Dr. Leonie Beckham MCV (RBC) [Entitic vol] 94.4 fL Critically high 80.0-94.0 [facility] Comment on above: Performed By: #### C BC ####[facility] [address] [place], [place] [address]Dr. Leonie Beckham MONO # 1.0 103/ul Critically high 0.3-0.8 [facility] Comment on above: Performed By: #### C BC ####[facility] [address] [place], [place] [address]Dr. Leonie Beckham Monocytes/100 WBC (Bld) 12.0 % Normal 1.7-12.0 [facility] Comment on above: Performed By: #### C BC ####[facility] [address] [place], [place] [address]Dr. Leonie Beckham NEUT # 4.6 103/ul Normal 1.4-6.5 [facility] Comment on above: Performed By: #### C BC ####[facility] [address] [id number]. Leonie Beckham Neutrophils/100 WBC (Bld) 57.5 % Normal 43.0-75.0 [facility] Comment on above: Performed By: #### C BC ####[facility] [address] [id number]. Leonie Beckham Platelet mean volume (Bld) [Entitic vol] 9.4 fL Critically low 9.5-13.5 [facility] Comment on above: Performed By: #### C BC ####[facility] [address] [id number]. Leonie Beckham PLT 203 103/ul Normal 150-450 [facility] Comment on above: Performed By: #### C BC ####[facility] [address] [id number]. Kaleighjacob Beckham RBC 4.61 106/ul Critically low 4.70-6.10 [facility] Comment on above: Performed By: #### C BC ####[facility] [address] [id number]. Leonie Beckham WBC 8.0 103/ul Normal 4.0-11.0 [facility] Comment on above: Performed By: #### C BC ####[facility] [address] [id number]. Leonie Chapincito FREE T3on 04-05-2022 FREE T3 2.54 pg/mlL Normal 2.18-3.98 [facility] Comment on above: Performed By: #### T SH, LIPID, CMP, T4, FT3 ####[facility] [address] [id number]. Leonie Beckham GLYCOHEMOGLOBIN A1Con 2021 ADA RECOMMENDATION SEE BELOW Normal [facility] Comment on above: Result Comment: ADA RECOMMENDED LIMIT 4.0 - 6.0 ADA THERAPEUTIC TARGET < 7.0 ACTION SUGGESTED > 7.0 Performed By: #### A 1C ####[facility] [address] [place], [place] [address]Dr. Leonie Beckham Glucose [Mass/Vol] 126 mg/dL Normal [facility] Comment on above: Performed By: #### A 1C ####[facility] [address] [id number]. Leonie Beckham HbA1c (Bld) [Mass fraction] 6.0 % Normal 4.5-6.2 [facility] Comment on above: Performed By: #### A 1C ####[facility] [address] [address]Dr. Leonie Beckham LIPID PROFILEon 04-05-2022 CHOL-HDL RATIO NORM SEE BELOW Normal [facility] Comment on above: Result Comment: 3.3 - 4.4 LOW RISK 4.4 - 7.1 AVERAGE RISK 7.1 - 11.0 MODERATE RISK >11.0 HIGH RISK Performed By: #### T SH, LIPID, CMP, T4, FT3 ####[facility] [address] [address]Dr. Leonie Beckham Cholesterol [Mass/Vol] 137 mg/dL Normal <=200 [facility] Comment on above: Performed By: #### T SH, LIPID, CMP, T4, FT3 ####[facility] [address] [address]Dr. Leonie Beckham Cholesterol in HDL [Mass/Vol] 40 mg/dL Normal 40-60 [facility] Comment on above: Performed By: #### T SH, LIPID, CMP, T4, FT3 ####[facility] [address] [id number]. Leonie Beckham Cholesterol in LDL [Mass/Vol] 84.0 mg/dL Normal [facility] Comment on above: Performed By: #### T SH, LIPID, CMP, T4, FT3 ####[facility] [address] [id number]. Leonie Beckham Cholesterol.total/Ch olesterol in HDL [Mass ratio] 3.4 {ratio} Normal [facility] Comment on above: Performed By: #### T SH, LIPID, CMP, T4, FT3 ####[facility] [address] [place], [place] [address]Dr. Leonie Beckham HDL NORMAL > or = 60 mg/dl - LO W CARDIOVASCULAR RISK <40 mg/dl - HIGH CARDIOVASCULAR RISK Normal [facility] Comment on above: Performed By: #### T SH, LIPID, CMP, T4, FT3 ####[facility] [address] [address]Dr. Leonie Beckham LDL CALC NORMAL SEE BELOW Normal [facility] Comment on above: Result Comment: <100 mg/dl OPTIMAL 100 - 129 mg/dl NEAR OR ABOVE OPTIMAL 130 - 159 mg/dl BORDERLINE HIGH 160 - 189 mg/dl HIGH >190 mg/dl VERY HIGH Performed By: #### T SH, LIPID, CMP, T4, FT3 ####[facility] [address] [address]Dr. Leonie Beckham Triglyceride [Mass/Vol] 65 mg/dL Normal <=150 [facility] Comment on above: Performed By: #### T SH, LIPID, CMP, T4, FT3 ####[facility] [address] [address]Dr. Leonie Beckham VLDL CALC 13.0 mg/dL Normal [facility] Comment on above: Performed By: #### T SH, LIPID, CMP, T4, FT3 ####[facility] [address] [address]Dr. Leonie Beckham PROF 14(COMP METB)on 022 Albumin [Mass/Vol] 3.8 g/dL Normal 3.4-5.0 [facility] Comment on above: Performed By: #### T SH, LIPID, CMP, T4, FT3 ####[facility] [address] [address]Dr. Leonie Beckham Albumin/Globulin [Mass ratio] 1.2 {ratio} Normal [facility] Comment on above: Performed By: #### T SH, LIPID, CMP, T4, FT3 ####[facility] [address] [place] [address]Dr. Leonie Beckham ALP [Catalytic activity/Vol] 81 U/L Normal 46-116 [facility] Comment on above: Performed By: #### T SH, LIPID, CMP, T4, FT3 ####[facility] [address] [place] [address]Dr. Leonie Beckham ALT [Catalytic activity/Vol] 35 U/L Normal 16-63 [facility] Comment on above: Performed By: #### T SH, LIPID, CMP, T4, FT3 ####[facility] [address] [place] [address]Dr. Leonie Beckham Anion gap [Moles/Vol] 10.8 mmol/L Normal [facility] Comment on above: Performed By: #### T SH, LIPID, CMP, T4, FT3 ####[facility] [address] [place], [place] [address]Dr. Leonie Beckham AST [Catalytic activity/Vol] 22 U/L Normal 15-37 [facility] Comment on above: Performed By: #### T SH, LIPID, CMP, T4, FT3 ####[facility] [address] [place], [place] [address]Dr. Leonie Beckham Bilirubin [Mass/Vol] 1.1 mg/dL Critically high 0.2-1.0 [facility] Comment on above: Performed By: #### T SH, LIPID, CMP, T4, FT3 ####[facility] [address] [place], [place] [address]Dr. Leonie Beckham Calcium [Mass/Vol] 8.6 mg/dL Normal 8.5-10.1 [facility] Comment on above: Performed By: #### T SH, LIPID, CMP, T4, FT3 ####[facility] [address] [place], [place] [address]Dr. Leonie Beckham Chloride [Moles/Vol] 105 mmol/L Normal 98-107 [facility] Comment on above: Performed By: #### T SH, LIPID, CMP, T4, FT3 ####[facility] [address] [place], [place] [address]Dr. Leonie Beckham CO2 [Moles/Vol] 28.2 mmol/L Normal 21.0-32.0 [facility] Comment on above: Performed By: #### T SH, LIPID, CMP, T4, FT3 ####[facility] [address] [place] [address]Dr. Loenie Beckham Creatinine [Mass/Vol] 1.33 mg/dL Critically high 0.70-1.30 [facility] Comment on above: Performed By: #### T SH, LIPID, CMP, T4, FT3 ####[facility] [address] [place] [address]Dr. Leonie Beckham EGFR-AF JAPANESE >60 Normal >=60 [facility] Comment on above: Performed By: #### T SH, LIPID, CMP, T4, FT3 ####[facility] [address] [place] [address]Dr. Leonie Beckham EGFR-NON AF JAPANESE 55 mL/min/1.73m2 Critically low >=60 [facility] Comment on above: Performed By: #### T SH, LIPID, CMP, T4, FT3 ####[facility] [address] [place] [address]Dr. Leonie Beckham Globulin (S) [Mass/Vol] 3.3 g/dL Normal [facility] Comment on above: Performed By: #### T SH, LIPID, CMP, T4, FT3 ####[facility] [address] [place] [address]Dr. Leonie Beckham Glucose [Mass/Vol] 94 mg/dL Normal 74-106 [facility] Comment on above: Performed By: #### T SH, LIPID, CMP, T4, FT3 ####[facility] [address] [place] [address]Dr. Leonie Beckham Potassium [Moles/Vol] 4.0 mmol/L Normal 3.5-5.1 [facility] Comment on above: Performed By: #### T SH, LIPID, CMP, T4, FT3 ####[facility] [address] [place] [address]Dr. Leonie Beckham Protein [Mass/Vol] 7.1 g/dL Normal 6.4-8.2 [facility] Comment on above: Performed By: #### T SH, LIPID, CMP, T4, FT3 ####[facility] [address] [place] [id number]. Leonie Beckham Sodium [Moles/Vol] 140 mmol/L Normal 136-145 [facility] Comment on above: Performed By: #### T SH, LIPID, CMP, T4, FT3 ####[facility] [address] [place] [id number]. Leonie Beckham Urea nitrogen [Mass/Vol] 24.0 mg/dL Critically high 7.0-18.0 [facility] Comment on above: Performed By: #### T SH, LIPID, CMP, T4, FT3 ####[facility] [address] [place] [address]Dr. Leonie Beckham Urea nitrogen/Creatinine [Mass ratio] 18.0 mg/mg Normal [facility] Comment on above: Performed By: #### T SH, LIPID, CMP, T4, FT3 ####[facility] [address] [place] [address]Dr. Leonie Beckham T4on 04-05-2022 T4 [Mass/Vol] 7.70 ug/dL Normal 4.50-12.10 [facility] Comment on above: Performed By: #### T SH, LIPID, CMP, T4, FT3 ####[facility] [address] [place] [id number]. Leonie Beckham TSHon 04-05-2022 TSH 3.042 uIU/mL Normal 0.358-3.740 [facility] Comment on above: Performed By: #### T SH, LIPID, CMP, T4, FT3 ####[facility] [address] [place] [id number]. Leonie Beckham VC COMP CONSULTATIONon 03-08 VC COMP CONSULTATION Patient: TRACIE CRAIN Exam Date: 03/08/2022 : 1965 Gender:M Ordering : DR TITUS VILLEGAS . 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 [...] 03/08/2022 a (more content not included)... Normal [facility] Ambulatory Clinical Summaryo n 12-20-2020 Ambulatory Clinical Summary {[id number]}CD:[id number] Normal [facility] Coding Summary.on 12-20-2020 Coding Summary. CODING DATE: 021 FINAL [facility] STATUS: Home (Routine DC) PAYOR: Commercial [...] result in slightly different terminology. Coded By: Jimbo Hampton Elba Date Saved: 12/19/2020 11:58 pm Normal [facility] General Surgery Office/Clini c Noteon [...] if problems/questions. Follow-up With When Contact Information NILL MD, Tracie Gonzalez Only if needed [address] [place] [address]- Additional Instructions: Problem List/Past Medical [...] inactivated - Not Given Patient Refuses Normal [facility] Comment on above: Result Comment: Elec tronically Signed By: BONG ADKINS, Tracie Gonzalez\.br\Date and Time Signed: 12/20/20 15:58 EDT Ambulatory Clinical Summaryo n 12-09-2020 Ambulatory Clinical Summary {[id number] Normal [facility] General Surgery Office/Clini c Noteon 12-09-2020 [...] vaccine, inactivated - Not Given Patient Refuses [facility] Comment on above: Result Comment: Elec tronically Signed By: Tracie WOODY MD R\.br\Date and Time Signed: 12/09/20 09:30 EST Provider Letter FTon 11-30 Provider Letter [facility] (Inserted Image. Un able to display) Titus Villegas, [address] [place] [address] Re: TRACIE CRAIN Date of : 1965 Thank you for your referral of Tracie Crain who was seen on consultation on November 29, 2020, for growth on left lower back that is changing. An excisional biopsy is planned. I have enclosed my consultation notes for your review. I will be happy to follow Tracie. Sincerely, Tracie Woody MD General Surgery [facility] Ambulatory Clinical Summaryo n 11-29-2020 Ambulatory Clinical Summary {[id number]}CD:[id number] Normal [facility] Physician Referralon 11-24- 021 Physician Referral [id number] D:127 Normal [facility] Operative Reporton 9 Operative Report MR#: [id number] S [facility] Pt. Name: Tracie Crain Room #: [...] form. 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 [address], [facility] [address] Timbo Black MD [address] [place] [address] [facility] BASIC METABOLIC PANELon 07-0 Calcium [Mass/Vol] 9.4 mg/dL Normal 8.6-10.3 [facility] Comment on above: Performed By: #### 0 0121, 99298, 20176, 32142, 37253 #### [facility] [address] [place] [address], [place] Chloride [Moles/Vol] 99 mmol/L Normal 98-107 [facility] Comment on above: Performed By: #### 0 0121, 85599, 55054, 57746, 58131 #### [facility] [address] [place] [address], [place] CO2 [Moles/Vol] 31 mmol/L Normal 21-31 [facility] Comment on above: Performed By: #### 0 0121, 54812, 65572, 56720, 40723 #### [facility] [address] [place] [address], [place] Creatinine [Mass/Vol] 1.22 mg/dL Normal 0.70-1.30 [facility] Comment on above: Performed By: #### 0 0121, 31273, 03673, 34846, 71822 #### [facility] [address] [place] [address], [place] GFR/1.73 sq M predicted among blacks MDRD (S/P/Bld) [Vol rate/Area] mL/min/{1.73_m2} Normal >60 [facility] Comment on above: Performed By: #### 0 0121, 90692, 71025, 69437, 57858 #### [facility] [address] [place] [address], [place] GFR/1.73 sq M predicted among non-blacks MDRD (S/P/Bld) [Vol rate/Area] mL/min/{1.73_m2} Normal >60 [facility] Comment on above: Performed By: #### 0 0121, 29990, 34487, 38674, 42450 #### [facility] [address] [place] [address], [facility] Glucose [Mass/Vol] 126 mg/dL High 70-100 [facility] Comment on above: Performed By: #### 0 0121, 19502, 25290, 48854, 95984 #### [facility] [address] [place] [address], [facility] Potassium [Moles/Vol] 3.8 mmol/L Normal 3.5-5.1 [facility] Comment on above: Performed By: #### 0 0121, 48106, 68535, 60751, 25573 #### [facility] [address] [place] [address], [facility] Sodium [Moles/Vol] 139 mmol/L Normal 136-145 [facility] Comment on above: Performed By: #### 0 0121, 79893, 99918, 64009, 10182 #### [facility] [address] [place] [address], [facility] Urea nitrogen [Mass/Vol] 15 mg/dL Normal 7-25 [facility] Comment on above: Performed By: #### 0 0121, 89988, 50754, 29910, 94025 #### [facility] [address] [facility] [address] BNP (B-TYPE NATRIURETIC PEPT PACHECO)on 04-07-2019 Natriuretic peptide B (Bld) [Mass/Vol] 502 pg/mL High 0-100 [facility] Comment on above: Result Comment: Give n the appropriate clinical setting a BNP result of >100 pg/mL indicates congestive heart failure. Performed By: #### 0 0121, 20591, 92270, 04731, 81710 #### [facility] [address] [place] [id number], [facility] CBC W/DIFFon 04-07-2019 ABS BASOPHILS 0.1 10*3/uL Normal 0.0-0.2 [facility] Comment on above: Performed By: #### 0 0121, 16325, 94434, 27304, 81231 #### [facility] [address] [place] [address], [facility] ABS IMM GRANS 0.0 10*3/uL Normal 0.0-0.2 [facility] Comment on above: Performed By: #### 0 0121, 23763, 46283, 97762, 75817 #### [facility] [address] [place] [address], [facility] ABS NEUTROPHILS 5.1 10*3/uL Normal 1.6-7.6 [facility] Comment on above: Performed By: #### 0 0121, 19479, 38298, 90040, 59134 #### [facility] [address] [place] [address], [facility] Basophils/100 WBC (Bld) 1.5 % High 0.0-1.0 [facility] Comment on above: Performed By: #### 0 0121, 60998, 62567, 52094, 34765 #### [facility] [address] [facility] [place] [address], [facility] Eosinophils (Bld) [#/Vol] 0.3 10*3/uL Normal 0.0-0.5 [facility] Comment on above: Performed By: #### 0 0121, 54266, 59163, 53618, 41272 #### [facility] [address] [facility] [place] [address], [facility] Eosinophils/100 WBC (Bld) 3.7 % Normal 0.0-6.0 [facility] Comment on above: Performed By: #### 0 0121, 49516, 09114, 53463, 02251 #### [facility] [address] [place] [address], [place] Erythrocyte distribution width (RBC) [Ratio] 13.2 % Normal 11.5-15.0 [facility] Comment on above: Performed By: #### 0 0121, 99595, 53782, 83173, 45585 #### [facility] [address] [place] [address], [facility] Hematocrit (Bld) [Volume fraction] 39.2 % Normal 39.0-50.0 [facility] Comment on above: Performed By: #### 0 0121, 26216, 23519, 44339, 67655 #### [facility] [address] [facility] [address] Hemoglobin (Bld) [Mass/Vol] 12.4 g/dL Low 13.0-17.0 [facility] Comment on above: Performed By: #### 0 0121, 28471, 52665, 65587, 27114 #### [facility] [address] [facility] [address] IMMATURE GRANS 0.4 % Normal 0.0-1.0 [facility] Comment on above: Performed By: #### 0 0121, 26078, 78634, 20270, 67333 #### [facility] [address] [facility] [place] [address], [facility] Lymphocytes (Bld) [#/Vol] 1.7 10*3/uL Normal 1.2-4.0 [facility] Comment on above: Performed By: #### 0 0121, 75470, 98288, 58906, 04326 #### [facility] [address] [facility] [place] [address], [facility] Lymphocytes/100 WBC (Bld) 21.2 % Normal 20.0-45.0 [facility] Comment on above: Performed By: #### 0 0121, 68471, 25253, 73389, 88648 #### [facility] [address] [facility] [place] [address], [facility] MCH (RBC) [Entitic mass] 28.8 pg Normal 27.0-33.0 [facility] Comment on above: Performed By: #### 0 0121, 66667, 54507, 93611, 44305 #### [facility] [address] [place] [address], [facility] MCHC (RBC) [Mass/Vol] 31.6 g/dL Low 32.0-35.0 [facility] Comment on above: Performed By: #### 0 0121, 14054, 73435, 74070, 06234 #### [facility] [address] [place] [address], [facility] MCV (RBC) [Entitic vol] 91.0 fL Normal 82.0-98.0 [facility] Comment on above: Performed By: #### 0 0121, 63822, 84978, 45268, 56556 #### [facility] [address] [facility] [address] Monocytes (Bld) [#/Vol] 0.9 10*3/uL Normal 0.1-1.0 [facility] Comment on above: Performed By: #### 0 0121, 04312, 43022, 00082, 01432 #### [facility] [address] [facility] MONOS 10.6 % Normal 5.0-12.0 [facility] Comment on above: Performed By: #### 0 0121, 36174, 84540, 52974, 35725 #### [facility] [address] [facility] Neutrophils/100 WBC (Bld) 62.6 % Normal 40.0-72.0 [facility] Comment on above: Performed By: #### 0 0121, 09390, 47606, 70089, 06926 #### [facility] [address] [place] [address], [facility] Nucleated RBC/100 WBC (Bld) [Ratio] 0 % Normal 0-0 [facility] Comment on above: Performed By: #### 0 0121, 06866, 38990, 13258, 63474 #### [facility] [address] [place] [address], [facility] PLAT CNT 520 10*3/uL High 150-400 [facility] Comment on above: Performed By: #### 0 0121, 39369, 26837, 95232, 87377 #### [facility] [address] [place] [address], [facility] RBC (Bld) [#/Vol] 4.31 10*6/uL Normal 4.20-5.70 [facility] Comment on above: Performed By: #### 0 0121, 26930, 18190, 78971, 87724 #### [facility] [address] [place] [address], [facility] WBC (Bld) [#/Vol] 8.20 10*3/uL Normal 4.00-10.60 [facility] Comment on above: Performed By: #### 0 0121, 71167, 77012, 57226, 85450 #### [facility] [address] [place] [address], [facility] HEMOGLOBINon 04-07-2019 Hemoglobin (Bld) [Mass/Vol] CANCELED Normal 13.0-17.0 [facility] Comment on above: Result Comment: The released value 12.3 was canceled by OCREEGER on 04/07/2019 12:48 Performed By: #### 0 0121, 52196, 67680, 73448, 13006 #### [facility] [address] [place] [address], [facility] BASIC METABOLIC PANELon 06-2 Calcium [Mass/Vol] 9.0 mg/dL Normal 8.6-10.3 [facility] Comment on above: Order Comment: No: D o not add to previous draw Performed By: #### 0 0121, 34509, 98341, 50276, 02557 #### [facility] [address] [place] [address], [place] Chloride [Moles/Vol] 98 mmol/L Normal 98-107 [facility] Comment on above: Order Comment: No: D o not add to previous draw Performed By: #### 0 0121, 84687, 67845, 46107, 21467 #### [facility] [address] [place] [address], [place] CO2 [Moles/Vol] 29 mmol/L Normal 21-31 [facility] Comment on above: Order Comment: No: D o not add to previous draw Performed By: #### 0 0121, 68191, 40680, 03325, 44001 #### [facility] [address] [place] [address], [place] Creatinine [Mass/Vol] 1.00 mg/dL Normal 0.70-1.30 [facility] Comment on above: Order Comment: No: D o not add to previous draw Performed By: #### 0 0121, 06378, 63701, 80201, 31839 #### [facility] [address] [place] [address], [place] GFR/1.73 sq M predicted among blacks MDRD (S/P/Bld) [Vol rate/Area] mL/min/{1.73_m2} Normal >60 [facility] Comment on above: Order Comment: No: D o not add to previous draw Performed By: #### 0 0121, 85585, 86253, 77302, 87409 #### [facility] [address] [place] [address], [place] GFR/1.73 sq M predicted among non-blacks MDRD (S/P/Bld) [Vol rate/Area] mL/min/{1.73_m2} Normal >60 [facility] Comment on above: Order Comment: No: D o not add to previous draw Performed By: #### 0 0121, 74445, 68504, 83901, 66150 #### [facility] [address] [place] [address], [place] Glucose [Mass/Vol] 96 mg/dL Normal 70-100 [facility] Comment on above: Order Comment: No: D o not add to previous draw Performed By: #### 0 0121, 13311, 41658, 83126, 13505 #### [facility] [address] [place] [address], [place] Potassium [Moles/Vol] 3.1 mmol/L Low 3.5-5.1 [facility] Comment on above: Order Comment: No: D o not add to previous draw Performed By: #### 0 0121, 50825, 56814, 91298, 15724 #### [facility] [address] [place] [address], [place] Sodium [Moles/Vol] 138 mmol/L Normal 136-145 [facility] Comment on above: Order Comment: No: D o not add to previous draw Performed By: #### 0 0121, 06785, 53925, 73176, 85192 #### [facility] [address] [place] [address], [facility] Urea nitrogen [Mass/Vol] 24 mg/dL Normal 7-25 [facility] Comment on above: Order Comment: No: D o not add to previous draw Performed By: #### 0 0121, 62594, 31290, 01433, 90892 #### [facility] [address] [place] [address], [place] CBC COMPLETE BLOOD COUNTon 0 - Erythrocyte distribution width (RBC) [Ratio] 13.6 % Normal 11.5-15.0 [facility] Comment on above: Order Comment: No: D o not add to previous draw Performed By: #### 0 0121, 67533, 07414, 78351, 90433 #### [facility] [address] [place] [address], [place] Hematocrit (Bld) [Volume fraction] 34.7 % Low 39.0-50.0 [facility] Comment on above: Order Comment: No: D o not add to previous draw Performed By: #### 0 0121, 32991, 47133, 71611, 35446 #### [facility] [address] [place] [address], [facility] Hemoglobin (Bld) [Mass/Vol] 11.3 g/dL Low 13.0-17.0 [facility] Comment on above: Order Comment: No: D o not add to previous draw Performed By: #### 0 0121, 80259, 22905, 62104, 21093 #### [facility] [address] [place] [address], [facility] MCH (RBC) [Entitic mass] 28.8 pg Normal 27.0-33.0 [facility] Comment on above: Order Comment: No: D o not add to previous draw Performed By: #### 0 0121, 62400, 56588, 79389, 90876 #### [facility] [address] [place] [address], [facility] MCHC (RBC) [Mass/Vol] 32.6 g/dL Normal 32.0-35.0 [facility] Comment on above: Order Comment: No: D o not add to previous draw Performed By: #### 0 0121, 46900, 32336, 20134, 18873 #### [facility] [address] [place] [address], [facility] MCV (RBC) [Entitic vol] 88.5 fL Normal 82.0-98.0 [facility] Comment on above: Order Comment: No: D o not add to previous draw Performed By: #### 0 0121, 53072, 61390, 26876, 41104 #### [facility] [address] [place] [address], [facility] Nucleated RBC/100 WBC (Bld) [Ratio] 0 % Normal 0-0 [facility] Comment on above: Order Comment: No: D o not add to previous draw Performed By: #### 0 0121, 99210, 58741, 61263, 43460 #### [facility] [address] [place] [address], [facility] PLAT CNT 205 10*3/uL Normal 150-400 [facility] Comment on above: Order Comment: No: D o not add to previous draw Performed By: #### 0 0121, 25223, 12261, 07152, 58067 #### [facility] [address] [place] [address], [facility] RBC (Bld) [#/Vol] 3.92 10*6/uL Low 4.20-5.70 [facility] Comment on above: Order Comment: No: D o not add to previous draw Performed By: #### 0 0121, 80490, 59268, 74006, 63840 #### [facility] [address] [place] [address], [facility] WBC (Bld) [#/Vol] 11.83 10*3/uL High 4.00-10.60 [facility] Comment on above: Order Comment: No: D o not add to previous draw Performed By: #### 0 0121, 68970, 06707, 15255, 23919 #### [facility] [address] [place] [address], [facility] MAGNESIUM BLOODon 03-27-2019 Magnesium [Mass/Vol] 2.3 mg/dL Normal 1.9-2.7 [facility] Comment on above: Order Comment: No: D o not add to previous draw Performed By: #### 0 0121, 19631, 19805, 37533, 60846 #### [facility] [address] [place] [address], [facility] POC GLUCOSE LABon 03-27-2019 Glucose [Mass/Vol] 115 mg/dL High 70-100 [facility] Comment on above: Performed By: #### 0 0121, 19461, 05625, 57816, 34432 #### [facility] [address] [facility] [place] [address], [facility] Glucose [Mass/Vol] 96 mg/dL Normal 70-100 [facility] Comment on above: Performed By: #### 0 0121, 84384, 99464, 37061, 78331 #### [facility] [address] [facility] [place] [address], [facility] PORTABLE CHEST 1 VIEWon 03-01 PORTABLE CHEST 1 VIEW [facility] Department of Radiology [address] [place] [address] ===== Patient Name: TRACIE CRAIN : 1965 Sex: M Age: Race: NA Pt. Location: [id number] Patient Status: I Ordered Date: 03/27/2019 5:00:00 [...] findings. Electronically signed by:Divya Collins. Transcribed by: [email or web address], User Resident: ANAI ALVARADO Electronically Signed by: DIVYA COLLINS @ 03/27/2019 09:07 AM I personally read this/these film(s) with this resident Normal [facility] Comment on above: Order Comment: No: D o not add to previous draw BASIC METABOLIC PANELon - Calcium [Mass/Vol] 9.2 mg/dL Normal 8.6-10.3 [facility] Comment on above: Order Comment: No: D o not add to previous draw Performed By: #### 0 0121, 42067, 39145, 20317, 65713 #### [facility] [address] [place] [address], [place] Chloride [Moles/Vol] 101 mmol/L Normal 98-107 [facility] Comment on above: Order Comment: No: D o not add to previous draw Performed By: #### 0 0121, 99418, 01513, 79824, 90104 #### [facility] [address] [place] [address], [place] CO2 [Moles/Vol] 27 mmol/L Normal 21-31 [facility] Comment on above: Order Comment: No: D o not add to previous draw Performed By: #### 0 0121, 60557, 64265, 03990, 42098 #### [facility] [address] [place] [address], [place] Creatinine [Mass/Vol] 0.93 mg/dL Normal 0.70-1.30 [facility] Comment on above: Order Comment: No: D o not add to previous draw Performed By: #### 0 0121, 55579, 25632, 94637, 13782 #### [facility] [address] [place] [address], [place] GFR/1.73 sq M predicted among blacks MDRD (S/P/Bld) [Vol rate/Area] mL/min/{1.73_m2} Normal >60 [facility] Comment on above: Order Comment: No: D o not add to previous draw Performed By: #### 0 0121, 06557, 30481, 67895, 42839 #### [facility] [address] [place] [address], [place] GFR/1.73 sq M predicted among non-blacks MDRD (S/P/Bld) [Vol rate/Area] mL/min/{1.73_m2} Normal >60 [facility] Comment on above: Order Comment: No: D o not add to previous draw Performed By: #### 0 0121, 13550, 85628, 13429, 90471 #### [facility] [address] [place] [address], [place] Glucose [Mass/Vol] 111 mg/dL High 70-100 [facility] Comment on above: Order Comment: No: D o not add to previous draw Performed By: #### 0 0121, 99376, 74641, 69933, 66799 #### [facility] [address] [place] [address], [place] Potassium [Moles/Vol] 3.9 mmol/L Normal 3.5-5.1 [facility] Comment on above: Order Comment: No: D o not add to previous draw Performed By: #### 0 0121, 11385, 85911, 46325, 31277 #### [facility] [address] [place] [address], [place] Sodium [Moles/Vol] 137 mmol/L Normal 136-145 [facility] Comment on above: Order Comment: No: D o not add to previous draw Performed By: #### 0 0121, 12923, 15570, 98604, 65541 #### [facility] [address] Urea nitrogen [Mass/Vol] 26 mg/dL High 7-25 [facility] Comment on above: Order Comment: No: D o not add to previous draw Performed By: #### 0 0121, 80923, 31371, 49443, 47371 #### [facility] [address] CBC W/DIFFon 03-26-2019 ABS BASOPHILS 0.1 10*3/uL Normal 0.0-0.2 [facility] Comment on above: Order Comment: No: D o not add to previous draw Performed By: #### 0 0121, 82784, 52238, 46305, 67780 #### [facility] [address] ABS IMM GRANS 0.5 10*3/uL High 0.0-0.2 [facility] Comment on above: Order Comment: No: D o not add to previous draw Performed By: #### 0 0121, 54384, 78401, 96588, 70570 #### [facility] [address] ABS NEUTROPHILS 10.2 10*3/uL High 1.6-7.6 [facility] Comment on above: Order Comment: No: D o not add to previous draw Performed By: #### 0 0121, 85661, 87602, 77935, 11736 #### [facility] [address] Basophils/100 WBC (Bld) 0.6 % Normal 0.0-1.0 [facility] Comment on above: Order Comment: No: D o not add to previous draw Performed By: #### 0 0121, 15380, 66581, 96604, 09058 #### [facility] [address] [place] [address], [facility] Eosinophils (Bld) [#/Vol] 0.4 10*3/uL Normal 0.0-0.5 [facility] Comment on above: Order Comment: No: D o not add to previous draw Performed By: #### 0 0121, 00956, 42998, 17627, 48936 #### [facility] [address] [place] [address], [facility] Eosinophils/100 WBC (Bld) 2.8 % Normal 0.0-6.0 [facility] Comment on above: Order Comment: No: D o not add to previous draw Performed By: #### 0 0121, 15617, 43950, 10628, 08205 #### [facility] [address] [place] [address], [facility] Erythrocyte distribution width (RBC) [Ratio] 13.6 % Normal 11.5-15.0 [facility] Comment on above: Order Comment: No: D o not add to previous draw Performed By: #### 0 0121, 22289, 88887, 42107, 79659 #### [facility] [address] [place] [address], [facility] Hematocrit (Bld) [Volume fraction] 34.5 % Low 39.0-50.0 [facility] Comment on above: Order Comment: No: D o not add to previous draw Performed By: #### 0 0121, 68237, 33659, 77032, 48172 #### [facility] [address] [place] [address], [facility] Hemoglobin (Bld) [Mass/Vol] 11.3 g/dL Low 13.0-17.0 [facility] Comment on above: Order Comment: No: D o not add to previous draw Performed By: #### 0 0121, 64013, 24545, 02036, 72423 #### [facility] [address] [place] [address], [facility] IMMATURE GRANS 3.5 % High 0.0-1.0 [facility] Comment on above: Order Comment: No: D o not add to previous draw Performed By: #### 0 0121, 89556, 29806, 72051, 87979 #### [facility] [address] [place] [address], [facility] Lymphocytes (Bld) [#/Vol] 1.3 10*3/uL Normal 1.2-4.0 [facility] Comment on above: Order Comment: No: D o not add to previous draw Performed By: #### 0 0121, 56653, 55175, 27784, 07906 #### [facility] [address] [facility] [place] [address], [facility] Lymphocytes/100 WBC (Bld) 9.2 % Low 20.0-45.0 [facility] Comment on above: Order Comment: No: D o not add to previous draw Performed By: #### 0 0121, 48381, 41183, 13572, 82011 #### [facility] [address] [facility] [place] [address], [facility] MCH (RBC) [Entitic mass] 28.9 pg Normal 27.0-33.0 [facility] Comment on above: Order Comment: No: D o not add to previous draw Performed By: #### 0 0121, 48487, 42311, 37563, 73080 #### [facility] [address] [place] [address], [place] MCHC (RBC) [Mass/Vol] 32.8 g/dL Normal 32.0-35.0 [facility] Comment on above: Order Comment: No: D o not add to previous draw Performed By: #### 0 0121, 43196, 99812, 16284, 66544 #### [facility] [address] [place] [address], [place] MCV (RBC) [Entitic vol] 88.2 fL Normal 82.0-98.0 [facility] Comment on above: Order Comment: No: D o not add to previous draw Performed By: #### 0 0121, 94607, 52159, 40195, 27949 #### [facility] [address] [place] [address], [facility] Monocytes (Bld) [#/Vol] 1.7 10*3/uL High 0.1-1.0 [facility] Comment on above: Order Comment: No: D o not add to previous draw Performed By: #### 0 0121, 80574, 05146, 85824, 53539 #### [facility] [address] [facility] [place] [address], [facility] MONOS 11.7 % Normal 5.0-12.0 [facility] Comment on above: Order Comment: No: D o not add to previous draw Performed By: #### 0 0121, 32312, 25327, 05031, 53908 #### [facility] [address] [facility] [place] [address], [facility] Neutrophils/100 WBC (Bld) 72.2 % High 40.0-72.0 [facility] Comment on above: Order Comment: No: D o not add to previous draw Performed By: #### 0 0121, 58471, 63490, 58897, 25951 #### [facility] [address] [facility] [place] [address], [facility] Nucleated RBC/100 WBC (Bld) [Ratio] 0 % Normal 0-0 [facility] Comment on above: Order Comment: No: D o not add to previous draw Performed By: #### 0 0121, 40855, 29070, 22346, 61922 #### [facility] [address] [place] [id number], [facility] PLAT CNT 215 10*3/uL Normal 150-400 [facility] Comment on above: Order Comment: No: D o not add to previous draw Performed By: #### 0 0121, 88778, 58277, 21439, 97207 #### [facility] [address] [place] [address], [place] RBC (Bld) [#/Vol] 3.91 10*6/uL Low 4.20-5.70 [facility] Comment on above: Order Comment: No: D o not add to previous draw Performed By: #### 0 0121, 66799, 33083, 80913, 20065 #### [facility] [address] [place] [address], [place] WBC (Bld) [#/Vol] 14.17 10*3/uL High 4.00-10.60 [facility] Comment on above: Order Comment: No: D o not add to previous draw Performed By: #### 0 0121, 08261, 12342, 58398, 55625 #### [facility] [address] [place] [address], [place] POC GLUCOSE LABon 03-26-2019 Glucose [Mass/Vol] 129 mg/dL High 70-100 [facility] Comment on above: Performed By: #### 0 0121, 56014, 26110, 03269, 60590 #### [facility] [address] [place] [address], [place] Glucose [Mass/Vol] 129 mg/dL High 70-100 [facility] Comment on above: Performed By: #### 0 0121, 90849, 76923, 43341, 59874 #### [facility] [address] [place] [address], [place] Glucose [Mass/Vol] 130 mg/dL High 70-100 [facility] Comment on above: Performed By: #### 0 0121, 05480, 13495, 84035, 10332 #### [facility] [address] [place] [address], [place] Glucose [Mass/Vol] 91 mg/dL Normal 70-100 [facility] Comment on above: Performed By: #### 0 0121, 01311, 58351, 39567, 09271 #### [address] PORTABLE CHEST 1 VIEWon 03-01 PORTABLE CHEST 1 VIEW [facility] Department of Radiology [address] [place] [id number] ===== Patient Name: TRACIE CRAIN : 1965 Sex: M Age: Race: NA Pt. Location: [id number] Patient Status: I Ordered Date: 03/26/2019 7:00:00 [...] findings. Electronically signed by:Divya Collins. Transcribed by: [email or web address], User Resident: KAREEM LIAO Electronically Signed by: DIVYA COLLINS @ 03/26/2019 10:03 AM I personally read this/these film(s) with this resident Normal [facility] Comment on above: Order Comment: No: D o not add to previous draw BASIC METABOLIC PANELon 03-01 Calcium [Mass/Vol] 9.1 mg/dL Normal 8.6-10.3 [facility] Comment on above: Order Comment: << On admission If not done in ED>> No: Do not add to previous draw Performed By: #### 0 0121, 10527, 22034, 08180, 22707 #### [facility] [address] [place] [address], [place] Chloride [Moles/Vol] 98 mmol/L Normal 98-107 [facility] Comment on above: Order Comment: << On admission If not done in ED>> No: Do not add to previous draw Performed By: #### 0 0121, 41488, 02613, 07005, 14267 #### [facility] [address] [place] [address], [place] CO2 [Moles/Vol] 29 mmol/L Normal 21-31 [facility] Comment on above: Order Comment: << On admission If not done in ED>> No: Do not add to previous draw Performed By: #### 0 0121, 65035, 06497, 28008, 92322 #### [facility] [address] [place] [address], [place] Creatinine [Mass/Vol] 1.01 mg/dL Normal 0.70-1.30 [facility] Comment on above: Order Comment: << On admission If not done in ED>> No: Do not add to previous draw Performed By: #### 0 0121, 93525, 89271, 45633, 18818 #### [facility] [address] [place] [address], [facility] GFR/1.73 sq M predicted among blacks MDRD (S/P/Bld) [Vol rate/Area] mL/min/{1.73_m2} Normal >60 [facility] Comment on above: Order Comment: << On admission If not done in ED>> No: Do not add to previous draw Performed By: #### 0 0121, 67887, 13254, 19122, 24820 #### [facility] [address] [place] [address], [facility] GFR/1.73 sq M predicted among non-blacks MDRD (S/P/Bld) [Vol rate/Area] mL/min/{1.73_m2} Normal >60 [facility] Comment on above: Order Comment: << On admission If not done in ED>> No: Do not add to previous draw Performed By: #### 0 0121, 53227, 82168, 64483, 08343 #### [facility] [address] [place] [address], [facility] Glucose [Mass/Vol] 123 mg/dL High 70-100 [facility] Comment on above: Order Comment: << On admission If not done in ED>> No: Do not add to previous draw Performed By: #### 0 0121, 32959, 10026, 35894, 93105 #### [facility] [address] [place] [address], [facility] Potassium [Moles/Vol] 3.9 mmol/L Normal 3.5-5.1 [facility] Comment on above: Order Comment: << On admission If not done in ED>> No: Do not add to previous draw Performed By: #### 0 0121, 05555, 52755, 96792, 13079 #### [facility] [address] Sodium [Moles/Vol] 134 mmol/L Low 136-145 [facility] Comment on above: Order Comment: << On admission If not done in ED>> No: Do not add to previous draw Performed By: #### 0 0121, 15975, 48342, 68514, 57357 #### [facility] [address] Urea nitrogen [Mass/Vol] 29 mg/dL High 7-25 [facility] Comment on above: Order Comment: << On admission If not done in ED>> No: Do not add to previous draw Performed By: #### 0 0121, 05435, 37504, 85610, 68495 #### [facility] [address] CBC W/DIFFon 03-25-2019 ABS BASOPHILS 0.1 10*3/uL Normal 0.0-0.2 [facility] Comment on above: Order Comment: << On admission If not done in ED>> No: Do not add to previous draw Performed By: #### 0 0121, 87843, 23956, 31874, 17416 #### [facility] [address] ABS NEUTROPHILS 11.2 10*3/uL High 1.6-7.6 [facility] Comment on above: Order Comment: << On admission If not done in ED>> No: Do not add to previous draw Performed By: #### 0 0121, 91043, 56989, 02345, 47774 #### [facility] [address] Basophils/100 WBC (Bld) 0.9 % Normal 0.0-1.0 [facility] Comment on above: Order Comment: << On admission If not done in ED>> No: Do not add to previous draw Performed By: #### 0 0121, 85543, 82057, 59932, 29473 #### [facility] [address] [place] [address], [facility] Eosinophils (Bld) [#/Vol] 0.1 10*3/uL Normal 0.0-0.5 [facility] Comment on above: Order Comment: << On admission If not done in ED>> No: Do not add to previous draw Performed By: #### 0 0121, 71942, 75187, 98122, 03160 #### [facility] [address] [place] [address], [facility] Eosinophils/100 WBC (Bld) 0.9 % Normal 0.0-6.0 [facility] Comment on above: Order Comment: << On admission If not done in ED>> No: Do not add to previous draw Performed By: #### 0 0121, 49515, 11680, 65856, 75145 #### [facility] [address] [place] [address], [facility] Erythrocyte distribution width (RBC) [Ratio] 13.4 % Normal 11.5-15.0 [facility] Comment on above: Order Comment: << On admission If not done in ED>> No: Do not add to previous draw Performed By: #### 0 0121, 93592, 85638, 50430, 53958 #### [facility] [address] [place] [address], [place] GIANT PLATELETS Present Normal [facility] Comment on above: Order Comment: << On admission If not done in ED>> No: Do not add to previous draw Performed By: #### 0 0121, 08502, 69658, 15148, 63829 #### [facility] [address] [place] [address], [place] Hematocrit (Bld) [Volume fraction] 35.4 % Low 39.0-50.0 [facility] Comment on above: Order Comment: << On admission If not done in ED>> No: Do not add to previous draw Performed By: #### 0 0121, 15846, 77587, 91445, 11971 #### [facility] [address] [place] [address], [facility] Hemoglobin (Bld) [Mass/Vol] 11.1 g/dL Low 13.0-17.0 [facility] Comment on above: Order Comment: << On admission If not done in ED>> No: Do not add to previous draw Performed By: #### 0 0121, 11250, 30804, 29398, 81775 #### [facility] [address] [place] [address], [facility] Lymphocytes (Bld) [#/Vol] 0.8 10*3/uL Low 1.2-4.0 [facility] Comment on above: Order Comment: << On admission If not done in ED>> No: Do not add to previous draw Performed By: #### 0 0121, 02510, 69832, 06848, 34786 #### [facility] [address] [place] [address], [facility] Lymphocytes/100 WBC (Bld) 6.3 % Low 20.0-45.0 [facility] Comment on above: Order Comment: << On admission If not done in ED>> No: Do not add to previous draw Performed By: #### 0 0121, 83672, 16530, 39106, 83839 #### [facility] [address] [place] [address], [place] MCH (RBC) [Entitic mass] 28.8 pg Normal 27.0-33.0 [facility] Comment on above: Order Comment: << On admission If not done in ED>> No: Do not add to previous draw Performed By: #### 0 0121, 89209, 14153, 71206, 16953 #### [facility] [address] MCHC (RBC) [Mass/Vol] 31.4 g/dL Low 32.0-35.0 [facility] Comment on above: Order Comment: << On admission If not done in ED>> No: Do not add to previous draw Performed By: #### 0 0121, 15411, 67908, 73224, 72894 #### [facility] [address] MCV (RBC) [Entitic vol] 91.9 fL Normal 82.0-98.0 [facility] Comment on above: Order Comment: << On admission If not done in ED>> No: Do not add to previous draw Performed By: #### 0 0121, 43667, 06081, 26236, 18433 #### [facility] [address] Monocytes (Bld) [#/Vol] 0.7 10*3/uL Normal 0.1-1.0 [facility] Comment on above: Order Comment: << On admission If not done in ED>> No: Do not add to previous draw Performed By: #### 0 0121, 46029, 92933, 26744, 71031 #### [facility] [address] MONOS 5.4 % Normal 5.0-12.0 [facility] Comment on above: Order Comment: << On admission If not done in ED>> No: Do not add to previous draw Performed By: #### 0 0121, 19208, 70222, 07491, 27249 #### [facility] [address] [place] [address], [facility] MYELOS 0.9 % High .0-.0 [facility] Comment on above: Order Comment: << On admission If not done in ED>> No: Do not add to previous draw Performed By: #### 0 0121, 58886, 97010, 88190, 12646 #### [facility] [address] [place] [address], [facility] Neutrophils/100 WBC (Bld) 85.6 % High 40.0-72.0 [facility] Comment on above: Order Comment: << On admission If not done in ED>> No: Do not add to previous draw Performed By: #### 0 0121, 07882, 13304, 66798, 55873 #### [facility] [address] [place] [address], [facility] Nucleated RBC/100 WBC (Bld) [Ratio] 0 % Normal 0-0 [facility] Comment on above: Order Comment: << On admission If not done in ED>> No: Do not add to previous draw Performed By: #### 0 0121, 41890, 01797, 63821, 12254 #### [facility] [address] [facility] [place] [address], [facility] PLAT CNT 196 10*3/uL Normal 150-400 [facility] Comment on above: Order Comment: << On admission If not done in ED>> No: Do not add to previous draw Performed By: #### 0 0121, 92766, 87367, 31474, 59574 #### [facility] [address] [facility] [place] [address], [facility] RBC (Bld) [#/Vol] 3.85 10*6/uL Low 4.20-5.70 [facility] Comment on above: Order Comment: << On admission If not done in ED>> No: Do not add to previous draw Performed By: #### 0 0121, 38505, 56994, 99708, 49942 #### [facility] [address] [facility] [place] [address], [facility] WBC (Bld) [#/Vol] 13.09 10*3/uL High 4.00-10.60 [facility] Comment on above: Order Comment: << On admission If not done in ED>> No: Do not add to previous draw Performed By: #### 0 0121, 74337, 23942, 16536, 44304 #### [facility] [address] [place] [address], [place] MAGNESIUM BLOODon 03-25-2019 Magnesium [Mass/Vol] 2.3 mg/dL Normal 1.9-2.7 [facility] Comment on above: Order Comment: << On admission If not done in ED>> No: Do not add to previous draw Performed By: #### 0 0121, 79687, 57717, 69773, 61515 #### [facility] [address] [place] [address], [place] PHOSPHORUS BLOODon 9 Phosphate [Mass/Vol] 2.6 mg/dL Normal 2.5-5.0 [facility] Comment on above: Order Comment: << On admission If not done in ED>> No: Do not add to previous draw Performed By: #### 0 0121, 86202, 63380, 73835, 32410 #### [facility] [address] [place] [address], [place] POC GLUCOSE LABon 03-25-2019 Glucose [Mass/Vol] 103 mg/dL High 70-100 [facility] Comment on above: Performed By: #### 0 0121, 75935, 54057, 47114, 56396 #### [facility] [address] [place] [address], [place] Glucose [Mass/Vol] 113 mg/dL High 70-100 [facility] Comment on above: Performed By: #### 0 0121, 37446, 68900, 20670, 61507 #### [facility] [address] [place] [address], [place] Glucose [Mass/Vol] 120 mg/dL High 70-100 [facility] Comment on above: Performed By: #### 0 0121, 05997, 63843, 57765, 27871 #### [facility] [address] Glucose [Mass/Vol] 110 mg/dL High 70-100 [facility] Comment on above: Performed By: #### 0 0121, 92222, 91530, 72765, 18811 #### [address] PORTABLE CHEST 1 VIEWon 03-01 PORTABLE CHEST 1 VIEW [facility] Department of Radiology [address] [place] [phone] ===== Patient Name: TRACIE CRAIN : 1965 Sex: M Age: Race: NA Pt. Location: [id number] Patient Status: I Ordered Date: 03/25/2019 7:00:00 [...] findings. Electronically signed by:Divya Collins. Transcribed by: [email or web address], User Resident: KAREEM LIAO Electronically Signed by: DIVYA COLLINS @ 03/25/2019 11:10 AM I personally read this/these film(s) with this resident Normal [facility] Comment on above: Order Comment: No: D o not add to previous draw BASIC METABOLIC PANELon - Calcium [Mass/Vol] 9.0 mg/dL Normal 8.6-10.3 [facility] Comment on above: Order Comment: << On admission If not done in ED>> No: Do not add to previous draw Performed By: #### 0 0121, 15473, 96189, 48654, 47854 #### [facility] [address] [place] [address], [place] Chloride [Moles/Vol] 96 mmol/L Low 98-107 [facility] Comment on above: Order Comment: << On admission If not done in ED>> No: Do not add to previous draw Performed By: #### 0 0121, 55699, 23822, 92408, 31635 #### [facility] [address] [place] [address], [place] CO2 [Moles/Vol] 30 mmol/L Normal 21-31 [facility] Comment on above: Order Comment: << On admission If not done in ED>> No: Do not add to previous draw Performed By: #### 0 0121, 31767, 09530, 75552, 60200 #### [facility] [address] [place] [address], [place] Creatinine [Mass/Vol] 0.89 mg/dL Normal 0.70-1.30 [facility] Comment on above: Order Comment: << On admission If not done in ED>> No: Do not add to previous draw Performed By: #### 0 0121, 55380, 50254, 50106, 71160 #### [facility] [address] [place] [address], [facility] GFR/1.73 sq M predicted among blacks MDRD (S/P/Bld) [Vol rate/Area] mL/min/{1.73_m2} Normal >60 [facility] Comment on above: Order Comment: << On admission If not done in ED>> No: Do not add to previous draw Performed By: #### 0 0121, 93414, 62443, 34704, 38313 #### [facility] [address] [place] [address], [facility] GFR/1.73 sq M predicted among non-blacks MDRD (S/P/Bld) [Vol rate/Area] mL/min/{1.73_m2} Normal >60 [facility] Comment on above: Order Comment: << On admission If not done in ED>> No: Do not add to previous draw Performed By: #### 0 0121, 89011, 55665, 21061, 09511 #### [facility] [address] [place] [address], [facility] Glucose [Mass/Vol] 98 mg/dL Normal 70-100 [facility] Comment on above: Order Comment: << On admission If not done in ED>> No: Do not add to previous draw Performed By: #### 0 0121, 30177, 97454, 09900, 63961 #### [facility] [address] [place] [address], [facility] Potassium [Moles/Vol] 3.2 mmol/L Low 3.5-5.1 [facility] Comment on above: Order Comment: << On admission If not done in ED>> No: Do not add to previous draw Performed By: #### 0 0121, 84389, 65782, 68640, 96647 #### [facility] [address] Sodium [Moles/Vol] 135 mmol/L Low 136-145 [facility] Comment on above: Order Comment: << On admission If not done in ED>> No: Do not add to previous draw Performed By: #### 0 0121, 22852, 66816, 45390, 60777 #### [facility] [address] Urea nitrogen [Mass/Vol] 29 mg/dL High 7-25 [facility] Comment on above: Order Comment: << On admission If not done in ED>> No: Do not add to previous draw Performed By: #### 0 0121, 92742, 44295, 76055, 86919 #### [facility] [address] CBC W/DIFFon 03-24-2019 ABS BASOPHILS 0.1 10*3/uL Normal 0.0-0.2 [facility] Comment on above: Order Comment: << On admission If not done in ED>> No: Do not add to previous draw Performed By: #### 0 0121, 93730, 08266, 80237, 94717 #### [facility] [address] ABS IMM GRANS 0.1 10*3/uL Normal 0.0-0.2 [facility] Comment on above: Order Comment: << On admission If not done in ED>> No: Do not add to previous draw Performed By: #### 0 0121, 43125, 05524, 60913, 99421 #### [facility] [address] ABS NEUTROPHILS 6.9 10*3/uL Normal 1.6-7.6 [facility] Comment on above: Order Comment: << On admission If not done in ED>> No: Do not add to previous draw Performed By: #### 0 0121, 34790, 96056, 61110, 45562 #### [facility] [address] [place] [address], [facility] Basophils/100 WBC (Bld) 0.8 % Normal 0.0-1.0 [facility] Comment on above: Order Comment: << On admission If not done in ED>> No: Do not add to previous draw Performed By: #### 0 0121, 24101, 04298, 64630, 82113 #### [facility] [address] [place] [address], [facility] Eosinophils (Bld) [#/Vol] 0.3 10*3/uL Normal 0.0-0.5 [facility] Comment on above: Order Comment: << On admission If not done in ED>> No: Do not add to previous draw Performed By: #### 0 0121, 25110, 04322, 79198, 90081 #### [facility] [address] [place] [address], [facility] Eosinophils/100 WBC (Bld) 2.8 % Normal 0.0-6.0 [facility] Comment on above: Order Comment: << On admission If not done in ED>> No: Do not add to previous draw Performed By: #### 0 0121, 56779, 85173, 00233, 03307 #### [facility] [address] [place] [address], [place] Erythrocyte distribution width (RBC) [Ratio] 13.5 % Normal 11.5-15.0 [facility] Comment on above: Order Comment: << On admission If not done in ED>> No: Do not add to previous draw Performed By: #### 0 0121, 26497, 11493, 41010, 70133 #### [facility] [address] [place] [address], [place] Hematocrit (Bld) [Volume fraction] 33.0 % Low 39.0-50.0 [facility] Comment on above: Order Comment: << On admission If not done in ED>> No: Do not add to previous draw Performed By: #### 0 0121, 98102, 84692, 40521, 28891 #### [facility] [address] [place] [address], [facility] Hemoglobin (Bld) [Mass/Vol] 10.4 g/dL Low 13.0-17.0 [facility] Comment on above: Order Comment: << On admission If not done in ED>> No: Do not add to previous draw Performed By: #### 0 0121, 26222, 14286, 25892, 35255 #### [facility] [address] [place] [address], [facility] IMMATURE GRANS 1.2 % High 0.0-1.0 [facility] Comment on above: Order Comment: << On admission If not done in ED>> No: Do not add to previous draw Performed By: #### 0 0121, 32041, 83032, 57904, 59198 #### [facility] [address] [place] [address], [facility] Lymphocytes (Bld) [#/Vol] 1.5 10*3/uL Normal 1.2-4.0 [facility] Comment on above: Order Comment: << On admission If not done in ED>> No: Do not add to previous draw Performed By: #### 0 0121, 76069, 73102, 11699, 08070 #### [facility] [address] [place] [address], [facility] Lymphocytes/100 WBC (Bld) 14.4 % Low 20.0-45.0 [facility] Comment on above: Order Comment: << On admission If not done in ED>> No: Do not add to previous draw Performed By: #### 0 0121, 50060, 54565, 71624, 56872 #### [facility] [address] MCH (RBC) [Entitic mass] 28.8 pg Normal 27.0-33.0 [facility] Comment on above: Order Comment: << On admission If not done in ED>> No: Do not add to previous draw Performed By: #### 0 0121, 62916, 81729, 06646, 03278 #### [facility] [address] MCHC (RBC) [Mass/Vol] 31.5 g/dL Low 32.0-35.0 [facility] Comment on above: Order Comment: << On admission If not done in ED>> No: Do not add to previous draw Performed By: #### 0 0121, 43007, 66149, 41482, 49884 #### [facility] [address] MCV (RBC) [Entitic vol] 91.4 fL Normal 82.0-98.0 [facility] Comment on above: Order Comment: << On admission If not done in ED>> No: Do not add to previous draw Performed By: #### 0 0121, 59121, 30058, 07946, 17893 #### [facility] [address] Monocytes (Bld) [#/Vol] 1.3 10*3/uL High 0.1-1.0 [facility] Comment on above: Order Comment: << On admission If not done in ED>> No: Do not add to previous draw Performed By: #### 0 0121, 25374, 32684, 64755, 26756 #### [facility] [address] MONOS 13.1 % High 5.0-12.0 [facility] Comment on above: Order Comment: << On admission If not done in ED>> No: Do not add to previous draw Performed By: #### 0 0121, 60148, 09458, 00573, 36059 #### [facility] [address] [place] [address], [facility] Neutrophils/100 WBC (Bld) 67.7 % Normal 40.0-72.0 [facility] Comment on above: Order Comment: << On admission If not done in ED>> No: Do not add to previous draw Performed By: #### 0 0121, 68920, 41998, 69416, 48868 #### [facility] [address] [place] [address], [facility] Nucleated RBC/100 WBC (Bld) [Ratio] 0 % Normal 0-0 [facility] Comment on above: Order Comment: << On admission If not done in ED>> No: Do not add to previous draw Performed By: #### 0 0121, 59704, 92700, 63466, 92975 #### [facility] [address] [facility] [place] [address], [facility] PLAT CNT 166 10*3/uL Normal 150-400 [facility] Comment on above: Order Comment: << On admission If not done in ED>> No: Do not add to previous draw Performed By: #### 0 0121, 76741, 20205, 40670, 12332 #### [facility] [address] [place] [address], [facility] RBC (Bld) [#/Vol] 3.61 10*6/uL Low 4.20-5.70 [facility] Comment on above: Order Comment: << On admission If not done in ED>> No: Do not add to previous draw Performed By: #### 0 0121, 81696, 44104, 30195, 71702 #### [facility] [address] [place] [id number], [place] WBC (Bld) [#/Vol] 10.21 10*3/uL Normal 4.00-10.60 [facility] Comment on above: Order Comment: << On admission If not done in ED>> No: Do not add to previous draw Performed By: #### 0 0121, 97698, 95765, 45289, 42454 #### [facility] [address] [place] [address], [facility] MAGNESIUM BLOODon 03-24-2019 Magnesium [Mass/Vol] 2.4 mg/dL Normal 1.9-2.7 [facility] Comment on above: Order Comment: << On admission If not done in ED>> No: Do not add to previous draw Performed By: #### 0 0121, 11830, 08034, 02047, 22143 #### [facility] [address] [place], [place] [address] [place] [address] PHOSPHORUS BLOODon 9 Phosphate [Mass/Vol] 2.9 mg/dL Normal 2.5-5.0 [facility] Comment on above: Order Comment: << On admission If not done in ED>> No: Do not add to previous draw Performed By: #### 0 0121, 70303, 25535, 02486, 26563 #### [facility] [address] POC GLUCOSE LABon 03-24-2019 Glucose [Mass/Vol] 107 mg/dL High 70-100 [facility] Comment on above: Performed By: #### 0 0121, 05372, 97935, 27252, 89627 #### [facility] [address] PORTABLE CHEST 1 VIEWon 03-01 PORTABLE CHEST 1 VIEW [facility] [address] [place] [address] ===== Patient Name: TRACIE CRAIN : 1965 Sex: M Age: Race: NA Pt. Location: [id number] Patient Status: I Ordered Date: 03/24/2019 4:00:00 [...] recommended. Electronically signed by:Scottie Fall. Transcribed by: [email or web address], User Resident: Electronically Signed by: SCOTTIE FALL @ 03/24/2019 10:43 AM Normal [facility] Comment on above: Order Comment: << On admission If not done in ED>> No: Do not add to previous draw POC GLUCOSE LABon 03-23-2019 Glucose [Mass/Vol] 150 mg/dL High 70-100 [facility] Comment on above: Performed By: #### 0 0121, 51812, 89715, 95224, 60495 #### [facility] [address] [place] [address], [place] Glucose [Mass/Vol] 110 mg/dL High 70-100 [facility] Comment on above: Performed By: #### 0 0121, 91058, 84603, 07855, 10986 #### [facility] [address] [place] [address], [place] Glucose [Mass/Vol] 112 mg/dL High 70-100 [facility] Comment on above: Performed By: #### 0 0121, 07139, 31320, 25298, 79167 #### [facility] [address] [place] [address], [place] Glucose [Mass/Vol] 93 mg/dL Normal 70-100 [facility] Comment on above: Performed By: #### 0 0121, 93956, 98383, 91517, 41289 #### [facility] [address] [place] [address], [place] ARTERIAL BLOOD GAS WITH ICAo n 03-22-2019 BASE EXCESS 4 mmol/L High -2-3 [facility] Comment on above: Performed By: #### 0 0121, 78895, 80758, 91138, 67572 #### [facility] [address] [place] [address], [place] [employer] NASAL CANNULA Normal [facility] Comment on above: Performed By: #### 0 0121, 21262, 74779, 07994, 63252 #### [facility] [address] [place] [address], [place] HCO3 (Bld) [Moles/Vol] 27 mmol/L Normal 21-28 [facility] Comment on above: Performed By: #### 0 0121, 25351, 43233, 27495, 20061 #### [facility] [address] [place] [address], [place] IONIZED CALCIUM 1.14 mmol/L Normal 1.13-1.32 [facility] Comment on above: Performed By: #### 0 0121, 74506, 70216, 23045, 31532 #### [facility] [address] [place] [address], [facility] LPM 6.0 LPM Normal [facility] Comment on above: Performed By: #### 0 0121, 95859, 32256, 97100, 04757 #### [facility] [address] [place] [address], [facility] Oxygen (Bld) [Partial pressure] 70 mm[Hg] Low 83-108 [facility] Comment on above: Performed By: #### 0 0121, 51920, 60853, 25524, 93278 #### [facility] [address] [place] [address], [facility] Oxygen saturation in Blood 93.0 % Low 94.0-97.0 [facility] Comment on above: Performed By: #### 0 0121, 97108, 27224, 82102, 82479 #### [facility] [address] [place] [address], [facility] PCO2 35 mmHg Normal 35-45 [facility] Comment on above: Performed By: #### 0 0121, 33346, 82248, 31569, 48163 #### [facility] [address] [place] [address], [facility] pH (Bld) 7.50 [pH] High 7.35-7.45 [facility] Comment on above: Result Comment: KINJAL REYNOSO NOTE: Effective 12/02/18, reference ranges for Respiratory GEM analyzers running arterial blood have been updated to reflect the pharmacy grad intern's published reference ranges. Performed By: #### 0 0121, 67483, 96449, 99678, 00790 #### [facility] [address] [place] [address], [facility] BASIC METABOLIC PANELon 06-2 Calcium [Mass/Vol] 8.9 mg/dL Normal 8.6-10.3 [facility] Comment on above: Order Comment: << On admission If not done in ED>> No: Do not add to previous draw Performed By: #### 0 0121, 78054, 02489, 58023, 13937 #### [facility] [address] [place] [address], [facility] Chloride [Moles/Vol] 101 mmol/L Normal 98-107 [facility] Comment on above: Order Comment: << On admission If not done in ED>> No: Do not add to previous draw Performed By: #### 0 0121, 45986, 64572, 97559, 14042 #### [facility] [address] [place] [address], [place] CO2 [Moles/Vol] 28 mmol/L Normal 21-31 [facility] Comment on above: Order Comment: << On admission If not done in ED>> No: Do not add to previous draw Performed By: #### 0 0121, 60731, 05383, 80232, 41161 #### [facility] [address] [place] [address], [facility] Creatinine [Mass/Vol] 1.29 mg/dL Normal 0.70-1.30 [facility] Comment on above: Order Comment: << On admission If not done in ED>> No: Do not add to previous draw Performed By: #### 0 0121, 19524, 00657, 40700, 16346 #### [facility] [address] [place] [address], [place] GFR/1.73 sq M predicted among blacks MDRD (S/P/Bld) [Vol rate/Area] mL/min/{1.73_m2} Normal >60 [facility] Comment on above: Order Comment: << On admission If not done in ED>> No: Do not add to previous draw Performed By: #### 0 0121, 73041, 03824, 17789, 80990 #### [facility] [address] [place] [address], [facility] GFR/1.73 sq M predicted among non-blacks MDRD (S/P/Bld) [Vol rate/Area] 58 ml/min/1.73sq m Abnormal >60 [facility] Comment on above: Order Comment: << On admission If not done in ED>> No: Do not add to previous draw Performed By: #### 0 0121, 75773, 09714, 72135, 12649 #### [facility] [address] [place] [address], [facility] Glucose [Mass/Vol] 111 mg/dL High 70-100 [facility] Comment on above: Order Comment: << On admission If not done in ED>> No: Do not add to previous draw Performed By: #### 0 0121, 04778, 51245, 50818, 52593 #### [facility] [address] [place] [address], [facility] Sodium [Moles/Vol] 139 mmol/L Normal 136-145 [facility] Comment on above: Order Comment: << On admission If not done in ED>> No: Do not add to previous draw Performed By: #### 0 0121, 36677, 83588, 44589, 90232 #### [facility] [address] [place] [address], [facility] Urea nitrogen [Mass/Vol] 23 mg/dL Normal 7-25 [facility] Comment on above: Order Comment: << On admission If not done in ED>> No: Do not add to previous draw Performed By: #### 0 0121, 15728, 00849, 44598, 65553 #### [facility] [address] [place] [address], [facility] CBC COMPLETE BLOOD COUNTon 0 - Erythrocyte distribution width (RBC) [Ratio] 13.4 % Normal 11.5-15.0 [facility] Comment on above: Order Comment: << On admission If not done in ED>> No: Do not add to previous draw Performed By: #### 0 0121, 19155, 78738, 49193, 04182 #### [facility] [address] [place] [address], [facility] Hematocrit (Bld) [Volume fraction] 31.2 % Low 39.0-50.0 [facility] Comment on above: Order Comment: << On admission If not done in ED>> No: Do not add to previous draw Performed By: #### 0 0121, 27277, 40490, 02111, 54985 #### [facility] [address] Hemoglobin (Bld) [Mass/Vol] 10.3 g/dL Low 13.0-17.0 [facility] Comment on above: Order Comment: << On admission If not done in ED>> No: Do not add to previous draw Performed By: #### 0 0121, 11717, 69144, 35043, 09264 #### [facility] [address] MCH (RBC) [Entitic mass] 28.9 pg Normal 27.0-33.0 [facility] Comment on above: Order Comment: << On admission If not done in ED>> No: Do not add to previous draw Performed By: #### 0 0121, 55374, 15518, 98703, 92157 #### [facility] [address] MCHC (RBC) [Mass/Vol] 33.0 g/dL Normal 32.0-35.0 [facility] Comment on above: Order Comment: << On admission If not done in ED>> No: Do not add to previous draw Performed By: #### 0 0121, 35328, 15395, 56551, 86783 #### [facility] [address] [place] [address], [facility] MCV (RBC) [Entitic vol] 87.4 fL Normal 82.0-98.0 [facility] Comment on above: Order Comment: << On admission If not done in ED>> No: Do not add to previous draw Performed By: #### 0 0121, 35147, 16651, 23923, 67173 #### [facility] [address] [place] [address], [facility] Nucleated RBC/100 WBC (Bld) [Ratio] 0 % Normal 0-0 [facility] Comment on above: Order Comment: << On admission If not done in ED>> No: Do not add to previous draw Performed By: #### 0 0121, 51801, 03479, 85184, 91153 #### [facility] [address] [place] [address], [place] PLAT CNT 88 10*3/uL Low 150-400 [facility] Comment on above: Order Comment: << On admission If not done in ED>> No: Do not add to previous draw Performed By: #### 0 0121, 87050, 47430, 02883, 48568 #### [facility] [address] [place] [address], [facility] RBC (Bld) [#/Vol] 3.57 10*6/uL Low 4.20-5.70 [facility] Comment on above: Order Comment: << On admission If not done in ED>> No: Do not add to previous draw Performed By: #### 0 0121, 85078, 38000, 72130, 13960 #### [facility] [address] [place] [address], [place] WBC (Bld) [#/Vol] 13.95 10*3/uL High 4.00-10.60 [facility] Comment on above: Order Comment: << On admission If not done in ED>> No: Do not add to previous draw Performed By: #### 0 0121, 36845, 18804, 29332, 79573 #### [facility] [address] [place] [address], [facility] COOXIMETRYon 03-22-2019 COHB 2 % Normal [facility] Comment on above: Performed By: #### 0 0121, 97782, 27678, 34987, 08484 #### [facility] [address] [place] [address], [place] METHB 1 % Normal [facility] Comment on above: Performed By: #### 0 0121, 34214, 99807, 81725, 74389 #### [facility] [address] [place] [address], [facility] Oxygen saturation in Blood 56.5 % Low 65.0-75.0 [facility] Comment on above: Performed By: #### 0 0121, 68778, 77712, 42182, 28852 #### [facility] [address] [place] [address], [facility] THB 9.9 g/dL Normal [facility] Comment on above: Performed By: #### 0 0121, 01003, 18521, 48286, 41689 #### [facility] [address] [place] [address], [facility] MAGNESIUM BLOODon 03-22-2019 Magnesium [Mass/Vol] 2.0 mg/dL Normal 1.9-2.7 [facility] Comment on above: Order Comment: << On admission If not done in ED>> No: Do not add to previous draw Performed By: #### 0 0121, 35522, 71256, 64551, 24159 #### [facility] [address] [place] [address], [place] Magnesium [Mass/Vol] 1.9 mg/dL Normal 1.9-2.7 [facility] Comment on above: Order Comment: << On admission If not done in ED>> No: Do not add to previous draw Performed By: #### 0 0121, 63438, 84277, 28646, 12035 #### [facility] [address] [place] [address], [place] PHOSPHORUS BLOODon 9 Phosphate [Mass/Vol] 3.6 mg/dL Normal 2.5-5.0 [facility] Comment on above: Order Comment: << On admission If not done in ED>> No: Do not add to previous draw Performed By: #### 0 0121, 08216, 35208, 26595, 70809 #### [facility] [address] [place] [address], [place] POC GLUCOSE LABon 03-22-2019 Glucose [Mass/Vol] 111 mg/dL High 70-100 [facility] Comment on above: Performed By: #### 0 0121, 33200, 13180, 01104, 85629 #### [facility] [address] [place] [address], [place] Glucose [Mass/Vol] 108 mg/dL High 70-100 [facility] Comment on above: Performed By: #### 0 0121, 82049, 16069, 26200, 48874 #### [facility] [address] [place] [address], [place] Glucose [Mass/Vol] 109 mg/dL High 70-100 [facility] Comment on above: Performed By: #### 0 0121, 79703, 16359, 01405, 81412 #### [facility] [address] [place] [address], [place] Glucose [Mass/Vol] 99 mg/dL Normal 70-100 [facility] Comment on above: Performed By: #### 0 0121, 36850, 86769, 89341, 50199 #### [facility] [address] [place] [address], [place] Glucose [Mass/Vol] 91 mg/dL Normal 70-100 [facility] Comment on above: Performed By: #### 0 0121, 01313, 60990, 52682, 14015 #### [address] [place], [place] [address] [place] [address] PORTABLE CHEST 1 VIEWon 03-01 PORTABLE CHEST 1 VIEW [facility] Department of Radiology [address] [place] [id number] ===== Patient Name: TRACIE CRAIN : 1965 Sex: M Age: Race: NA Pt. Location: [id number] Patient Status: I Ordered Date: 03/22/2019 5:00:00 [...] removal of endotracheal and enteric tubes. Right-sided Burbank-Sher catheter is again seen with tip overlying [...] Small left pleural effusion, unchanged. 3. Right-sided Burbank-Sher catheter with tip projecting over the pulmonary trunk, unchanged. 4. Redemonstration of 2 chest tubes on the right, unchanged. Approved by:Cynthia Finley on 03/22/2019 8:06 AM EDT. I, Yenni Osuna, have reviewed the images and report and concur with these findings. Electronically signed by:Yenni Osuna. Transcribed by: [email or web address], User Resident: CYNTHIA FINLEY Electronically Signed by: YENNI OSUNA @ 03/22/2019 01:07 PM I personally read this/these film(s) with this resident Normal [facility] Comment on above: Order Comment: << On admission If not done in ED>> No: Do not add to previous draw POTASSIUM BLOODon 03-22-2019 Potassium [Moles/Vol] 3.1 mmol/L Low 3.5-5.1 [facility] Comment on above: Order Comment: << On admission If not done in ED>> No: Do not add to previous draw Performed By: #### 0 0121, 47920, 34660, 10940, 81312 #### [facility] [address] [facility]. [address] PROTHROMBIN TIMEon 9 INR Coag (PPP) [Relative time] 1.37 {INR} High 0.91-1.16 [facility] Comment on above: Order Comment: << [...] CHEST 1995;[id number]. Performed By: #### 0 0121, 59206, 23252, 63648, 34457 #### [facility] [address] PT Coag (PPP) [Time] 16.9 s High 12.3-14.8 [facility] Comment on above: Order Comment: << On admission If not done in ED>> No: Do not add to previous draw Result Comment: ALL RESULTS MUST BE INTERPRETED WITH RESPECT TO BLOOD DRAWING ARTIFACT OR DILUTION ERROR OF ANTICOAGULANT AT THE TIME OF SAMPLING. Performed By: #### 0 0121, 36091, 84767, 02736, 75991 #### [facility] [address] [facility] ARTERIAL BLOOD GAS W/COOXon 03-21-2019 BASE EXCESS 1 mmol/L Normal -2-3 [facility] Comment on above: Performed By: #### 0 0121, 86560, 63828, 33375, 49653 #### [facility] [address] [facility] COHB 1.4 % Normal 0.0-1.5 [facility] Comment on above: Performed By: #### 0 0121, 18783, 48722, 01696, 85196 #### [facility] [address] [facility] [place] [address], [facility] FIO2 40 % Normal [facility] Comment on above: Performed By: #### 0 0121, 41771, 44502, 15235, 50627 #### [facility] [address] [place] [address], [place] HCO3 (Bld) [Moles/Vol] 24 mmol/L Normal 21-28 [facility] Comment on above: Performed By: #### 0 0121, 36737, 49618, 95173, 15679 #### [facility] [address] [place] [address], [place] METHB 1.1 % Normal 0.0-1.5 [facility] Comment on above: Performed By: #### 0 0121, 90815, 06443, 80809, 08550 #### [facility] [address] [place] [address], [place] MIN VOLUME 13.1 Normal [facility] Comment on above: Performed By: #### 0 0121, 86331, 86242, 63203, 00874 #### [facility] [address] [place] [address], [place] MODALITY Positive Normal [facility] Comment on above: Performed By: #### 0 0121, 86030, 07044, 44651, 83217 #### [facility] [address] [place] [address], [place] Oxygen (Bld) [Partial pressure] 86 mm[Hg] Normal 83-108 [facility] Comment on above: Performed By: #### 0 0121, 97471, 52041, 60658, 75903 #### [facility] [address] [place] [address], [place] Oxygen saturation in Blood 94.8 % Normal 94.0-97.0 [facility] Comment on above: Performed By: #### 0 0121, 84338, 44156, 98040, 25057 #### [facility] [address] [place] [address], [place] PCO2 32 mmHg Low 35-45 [facility] Comment on above: Performed By: #### 0 0121, 90923, 97724, 70210, 88532 #### [facility] [address] [place] [address], [facility] PEEP 8.0 CMH20 Normal [facility] Comment on above: Performed By: #### 0 0121, 79387, 17984, 21886, 17939 #### [facility] [address] [place] [address], [facility] pH (Bld) 7.49 [pH] High 7.35-7.45 [facility] Comment on above: Result Comment: KINJAL REYNOSO NOTE: Effective 12/02/18, reference ranges for Respiratory GEM analyzers running arterial blood have been updated to reflect the pharmacy grad intern's published reference ranges. Performed By: #### 0 0121, 64203, 66957, 87536, 61736 #### [facility] [address] [place] [address], [facility] PRESSURE SUPPORT 5 Normal [facility] Comment on above: Performed By: #### 0 0121, 53054, 12489, 90082, 02619 #### [facility] [address] [place] [address], [facility] THB 10.3 g/dL Low 12.0-16.3 [facility] Comment on above: Performed By: #### 0 0121, 93441, 42676, 30333, 91422 #### [facility] [address] [place] [address], [facility] ARTERIAL BLOOD GAS WITH ICAo n 03-21-2019 BASE EXCESS 4 mmol/L High -2-3 [facility] Comment on above: Performed By: #### 0 0121, 07393, 46476, 19393, 58621 #### [facility] [address] [place] [address], [facility] [employer] NC Normal [facility] Comment on above: Performed By: #### 0 0121, 39756, 18163, 43569, 44288 #### [facility] [address] [place] [address], [place] HCO3 (Bld) [Moles/Vol] 27 mmol/L Normal 21-28 [facility] Comment on above: Performed By: #### 0 0121, 09536, 00302, 66425, 08703 #### [facility] [address] [place] [address], [place] IONIZED CALCIUM 1.17 mmol/L Normal 1.13-1.32 [facility] Comment on above: Performed By: #### 0 0121, 40702, 54425, 60625, 98908 #### [facility] [address] [place] [address], [place] LPM 6.0 LPM Normal [facility] Comment on above: Performed By: #### 0 0121, 00867, 74866, 37049, 53278 #### [facility] [address] [place] [address], [place] Oxygen (Bld) [Partial pressure] 67 mm[Hg] Low 83-108 [facility] Comment on above: Performed By: #### 0 0121, 38818, 21809, 92130, 43687 #### [facility] [address] [place] [address], [place] Oxygen saturation in Blood 92.7 % Low 94.0-97.0 [facility] Comment on above: Performed By: #### 0 0121, 48148, 87638, 45213, 22055 #### [facility] [address] [place] [address], [place] PCO2 36 mmHg Normal 35-45 [facility] Comment on above: Performed By: #### 0 0121, 62150, 11788, 37019, 33670 #### [facility] [address] [place] [address], [place] pH (Bld) 7.49 [pH] High 7.35-7.45 [facility] Comment on above: Result Comment: KINJLA REYNOSO NOTE: Effective 12/02/18, reference ranges for Respiratory GEM analyzers running arterial blood have been updated to reflect the pharmacy grad intern's published reference ranges. Performed By: #### 0 0121, 60101, 74590, 10881, 42814 #### [facility] [address] [place] [address], [facility] BASE EXCESS 1 mmol/L Normal -2-3 [facility] Comment on above: Performed By: #### 0 0121, 09241, 85681, 43986, 11727 #### [facility] [address] [place] [address], [facility] [employer] VENTILATOR Normal [facility] Comment on above: Performed By: #### 0 0121, 95330, 62676, 28964, 23537 #### [facility] [address] [place] [address], [place] FIO2 40 % Normal [facility] Comment on above: Performed By: #### 0 0121, 04780, 72732, 11692, 74942 #### [facility] [address] [place] [address], [facility] HCO3 (Bld) [Moles/Vol] 24 mmol/L Normal 21-28 [facility] Comment on above: Performed By: #### 0 0121, 03659, 39672, 48195, 71923 #### [facility] [address] [place] [address], [place] IONIZED CALCIUM 1.07 mmol/L Low 1.13-1.32 [facility] Comment on above: Performed By: #### 0 0121, 60245, 72149, 43662, 25745 #### [facility] [address] [place] [address], [place] MIN VOLUME 15.6 Normal [facility] Comment on above: Performed By: #### 0 0121, 38743, 42112, 06938, 85885 #### [facility] [address] [place] [address], [place] MODALITY Positive Normal [facility] Comment on above: Performed By: #### 0 0121, 01183, 52879, 42472, 45016 #### [facility] [address] [place] [address], [place] Oxygen (Bld) [Partial pressure] 89 mm[Hg] Normal 83-108 [facility] Comment on above: Performed By: #### 0 0121, 81771, 19946, 81858, 49417 #### [facility] [address] [place] [address], [place] Oxygen saturation in Blood 94.7 % Normal 94.0-97.0 [facility] Comment on above: Performed By: #### 0 0121, 55563, 16636, 67774, 64744 #### [facility] [address] [place] [address], [place] PCO2 30 mmHg Low 35-45 [facility] Comment on above: Performed By: #### 0 0121, 39991, 03774, 17914, 99042 #### [facility] [address] [place] [address], [place] PEEP 8.0 CMH20 Normal [facility] Comment on above: Performed By: #### 0 0121, 78957, 79712, 93524, 56560 #### [facility] [address] [place] [address], [place] pH (Bld) 7.51 [pH] High 7.35-7.45 [facility] Comment on above: Result Comment: KINJAL REYNOSO NOTE: Effective 12/02/18, reference ranges for Respiratory GEM analyzers running arterial blood have been updated to reflect the pharmacy grad intern's published reference ranges. Performed By: #### 0 0121, 56890, 85800, 29536, 11922 #### [facility] [address] [place] [address], [facility] PRESSURE SUPPORT 10 Normal [facility] Comment on above: Performed By: #### 0 0121, 96193, 80494, 46448, 64974 #### [facility] [address] [place] [address], [place] BASE EXCESS 0 mmol/L Normal -2-3 [facility] Comment on above: Performed By: #### 0 0121, 56844, 72467, 96658, 99557 #### [facility] [address] [place] [address], [facility] [employer] MV Normal [facility] Comment on above: Performed By: #### 0 0121, 49582, 94552, 65880, 88467 #### [facility] [address] [place] [address], [facility] FIO2 40 % Normal [facility] Comment on above: Performed By: #### 0 0121, 99599, 03951, 30423, 44889 #### [facility] [address] [place] [address], [facility] HCO3 (Bld) [Moles/Vol] 23 mmol/L Normal 21-28 [facility] Comment on above: Performed By: #### 0 0121, 77668, 16118, 35781, 67149 #### [facility] [address] [place] [address], [facility] IONIZED CALCIUM 1.07 mmol/L Low 1.13-1.32 [facility] Comment on above: Performed By: #### 0 0121, 81871, 67157, 25777, 52359 #### [facility] [address] [place] [address], [place] MIN VOLUME 17.0 Normal [facility] Comment on above: Performed By: #### 0 0121, 17990, 64589, 19078, 49965 #### [facility] [address] [place] [id number], [facility] MODALITY AC Normal [facility] Comment on above: Performed By: #### 0 0121, 47680, 55343, 93787, 13691 #### [facility] [address] [place] [address], [place] Oxygen (Bld) [Partial pressure] 94 mm[Hg] Normal 83-108 [facility] Comment on above: Performed By: #### 0 0121, 42732, 73896, 66690, 17425 #### [facility] [address] [place] [address], [facility] Oxygen saturation in Blood 95.1 % Normal 94.0-97.0 [facility] Comment on above: Performed By: #### 0 0121, 71212, 08247, 22510, 90183 #### [facility] [address] [place] [address], [facility] PCO2 30 mmHg Low 35-45 [facility] Comment on above: Performed By: #### 0 0121, 67411, 76209, 41952, 35472 #### [facility] [address] [place] [address], [facility] PEEP 8.0 CMH20 Normal [facility] Comment on above: Performed By: #### 0 0121, 68455, 95007, 02232, 30913 #### [facility] [address] [place] [address], [place] pH (Bld) 7.49 [pH] High 7.35-7.45 [facility] Comment on above: Result Comment: PLEA SE NOTE: Effective 12/02/18, reference ranges for Respiratory GEM analyzers running arterial blood have been updated to reflect the pharmacy grad intern's published reference ranges. Performed By: #### 0 0121, 18785, 32284, 38031, 83521 #### [facility] [address] [place] [address], [place] TIDAL VOLUME (VT) CC 700 cc Normal [facility] Comment on above: Performed By: #### 0 0121, 63838, 07903, 50237, 49899 #### [facility] [address] [place] [address], [facility] BASE EXCESS 0 mmol/L Normal -2-3 [facility] Comment on above: Performed By: #### 0 0121, 29186, 83672, 00427, 20252 #### [facility] [address] [place] [address], [facility] [employer] MV Normal [facility] Comment on above: Performed By: #### 0 0121, 73599, 05948, 27381, 31055 #### [facility] [address] [place] [address], [facility] FIO2 50 % Normal [facility] Comment on above: Performed By: #### 0 0121, 25749, 60832, 40214, 22042 #### [facility] [address] [place] [address], [facility] HCO3 (Bld) [Moles/Vol] 23 mmol/L Normal 21-28 [facility] Comment on above: Performed By: #### 0 0121, 35412, 69781, 55743, 23795 #### [facility] [address] [place] [address], [facility] IONIZED CALCIUM 1.14 mmol/L Normal 1.13-1.32 [facility] Comment on above: Performed By: #### 0 0121, 69370, 62495, 18900, 70205 #### [facility] [address] [place] [address], [facility] MIN VOLUME 13.3 Normal [facility] Comment on above: Performed By: #### 0 0121, 71844, 58659, 44449, 18860 #### [facility] [address] [place] [address], [place] MODALITY AC Normal [facility] Comment on above: Performed By: #### 0 0121, 75198, 59247, 64349, 88598 #### [facility] [address] [place] [address], [place] Oxygen (Bld) [Partial pressure] 71 mm[Hg] Low 83-108 [facility] Comment on above: Performed By: #### 0 0121, 90156, 99353, 50557, 89048 #### [facility] [address] [place] [address], [place] Oxygen saturation in Blood 92.6 % Low 94.0-97.0 [facility] Comment on above: Performed By: #### 0 0121, 07574, 93387, 34006, 25982 #### [facility] [address] [place] [address], [place] PCO2 31 mmHg Low 35-45 [facility] Comment on above: Performed By: #### 0 0121, 64493, 98771, 38488, 47548 #### [facility] [address] [place] [address], [place] PEEP 8.0 CMH20 Normal [facility] Comment on above: Performed By: #### 0 0121, 27722, 87170, 76981, 02272 #### [facility] [address] [place] [address], [place] PF RATIO 142 mmHg Normal [facility] Comment on above: Performed By: #### 0 0121, 55468, 62218, 93265, 86653 #### [facility] [address] [place] [address], [place] pH (Bld) 7.47 [pH] High 7.35-7.45 [facility] Comment on above: Result Comment: KINJAL REYNOSO NOTE: Effective 12/02/18, reference ranges for Respiratory GEM analyzers running arterial blood have been updated to reflect the pharmacy grad intern's published reference ranges. Performed By: #### 0 0121, 88361, 95872, 74979, 03768 #### [facility] [address] [place] [address], [facility] TIDAL VOLUME (VT) CC 700 cc Normal [facility] Comment on above: Performed By: #### 0 0121, 27772, 89291, 87083, 26106 #### [facility] [address] [place] [address], [facility] BASIC METABOLIC PANELon 06- Calcium [Mass/Vol] 8.6 mg/dL Normal 8.6-10.3 [facility] Comment on above: Order Comment: << On admission If not done in ED>> No: Do not add to previous draw Performed By: #### 0 0121, 60301, 44609, 95000, 75441 #### [facility] [address] [place] [address], [facility] Chloride [Moles/Vol] 104 mmol/L Normal 98-107 [facility] Comment on above: Order Comment: << On admission If not done in ED>> No: Do not add to previous draw Performed By: #### 0 0121, 28406, 42348, 72074, 14108 #### [facility] [address] [place] [address], [facility] CO2 [Moles/Vol] 26 mmol/L Normal 21-31 [facility] Comment on above: Order Comment: << On admission If not done in ED>> No: Do not add to previous draw Performed By: #### 0 0121, 35839, 00041, 66569, 54091 #### [facility] [address] [place] [address], [place] Creatinine [Mass/Vol] 1.48 mg/dL High 0.70-1.30 [facility] Comment on above: Order Comment: << On admission If not done in ED>> No: Do not add to previous draw Performed By: #### 0 0121, 88294, 91706, 70892, 95508 #### [facility] [address] [place] [address], [place] GFR/1.73 sq M predicted among blacks MDRD (S/P/Bld) [Vol rate/Area] 60 ml/min/1.73sq m Abnormal >60 [facility] Comment on above: Order Comment: << On admission If not done in ED>> No: Do not add to previous draw Performed By: #### 0 0121, 27463, 47685, 86411, 00779 #### [facility] [address] [place] [address], [place] GFR/1.73 sq M predicted among non-blacks MDRD (S/P/Bld) [Vol rate/Area] 50 ml/min/1.73sq m Abnormal >60 [facility] Comment on above: Order Comment: << On admission If not done in ED>> No: Do not add to previous draw Performed By: #### 0 0121, 02350, 14309, 10087, 23013 #### [facility] [address] [place] [address], [place] Glucose [Mass/Vol] 115 mg/dL High 70-100 [facility] Comment on above: Order Comment: << On admission If not done in ED>> No: Do not add to previous draw Performed By: #### 0 0121, 61337, 04080, 05254, 66499 #### [facility] [address] [place] [address], [place] Potassium [Moles/Vol] 3.4 mmol/L Low 3.5-5.1 [facility] Comment on above: Order Comment: << On admission If not done in ED>> No: Do not add to previous draw Performed By: #### 0 0121, 33209, 18291, 19108, 83464 #### [facility] [address] [place] [address], [place] Sodium [Moles/Vol] 138 mmol/L Normal 136-145 [facility] Comment on above: Order Comment: << On admission If not done in ED>> No: Do not add to previous draw Performed By: #### 0 0121, 09685, 55364, 41986, 71065 #### [facility] [address] [place] [address], [place] Urea nitrogen [Mass/Vol] 23 mg/dL Normal 7-25 [facility] Comment on above: Order Comment: << On admission If not done in ED>> No: Do not add to previous draw Performed By: #### 0 0121, 84316, 93482, 17264, 01745 #### [facility] [address] [place] [address], [place] Calcium [Mass/Vol] 8.1 mg/dL Low 8.6-10.3 [facility] Comment on above: Order Comment: << On admission If not done in ED>> No: Do not add to previous draw Performed By: #### 0 0121, 56291, 07062, 01773, 82877 #### [facility] [address] [place] [address], [place] Chloride [Moles/Vol] 105 mmol/L Normal 98-107 [facility] Comment on above: Order Comment: << On admission If not done in ED>> No: Do not add to previous draw Performed By: #### 0 0121, 31235, 34994, 02395, 70436 #### [facility] [address] [place] [address], [place] CO2 [Moles/Vol] 26 mmol/L Normal 21-31 [facility] Comment on above: Order Comment: << On admission If not done in ED>> No: Do not add to previous draw Performed By: #### 0 0121, 66322, 54207, 92830, 79386 #### [facility] [address] [place] [address], [place] Creatinine [Mass/Vol] 1.37 mg/dL High 0.70-1.30 [facility] Comment on above: Order Comment: << On admission If not done in ED>> No: Do not add to previous draw Performed By: #### 0 0121, 55284, 80260, 01344, 92702 #### [facility] [address] [place] [address], [facility] GFR/1.73 sq M predicted among blacks MDRD (S/P/Bld) [Vol rate/Area] mL/min/{1.73_m2} Normal >60 [facility] Comment on above: Order Comment: << On admission If not done in ED>> No: Do not add to previous draw Performed By: #### 0 0121, 56236, 38560, 93096, 61800 #### [facility] [address] [place] [address], [facility] GFR/1.73 sq M predicted among non-blacks MDRD (S/P/Bld) [Vol rate/Area] 54 ml/min/1.73sq m Abnormal >60 [facility] Comment on above: Order Comment: << On admission If not done in ED>> No: Do not add to previous draw Performed By: #### 0 0121, 36714, 24135, 55042, 11681 #### [facility] [address] [place] [address], [facility] Glucose [Mass/Vol] 113 mg/dL High 70-100 [facility] Comment on above: Order Comment: << On admission If not done in ED>> No: Do not add to previous draw Performed By: #### 0 0121, 40489, 87916, 79089, 89339 #### [facility] [address] [place] [address], [facility] Potassium [Moles/Vol] 3.3 mmol/L Low 3.5-5.1 [facility] Comment on above: Order Comment: << On admission If not done in ED>> No: Do not add to previous draw Performed By: #### 0 0121, 87463, 42611, 16529, 74420 #### [facility] [address] [place] [address], [place] Sodium [Moles/Vol] 138 mmol/L Normal 136-145 [facility] Comment on above: Order Comment: << On admission If not done in ED>> No: Do not add to previous draw Performed By: #### 0 0121, 73954, 46367, 77218, 73040 #### [facility] [address] [place] [address], [place] Urea nitrogen [Mass/Vol] 19 mg/dL Normal 7-25 [facility] Comment on above: Order Comment: << On admission If not done in ED>> No: Do not add to previous draw Performed By: #### 0 0121, 31502, 82012, 40603, 03864 #### [facility] [address] [place] [address], [place] Calcium [Mass/Vol] 7.4 mg/dL Low 8.6-10.3 [facility] Comment on above: Order Comment: << On admission If not done in ED>> No: Do not add to previous draw Performed By: #### 0 0121, 92858, 42342, 44807, 23555 #### [facility] [address] [place] [address], [place] Chloride [Moles/Vol] 109 mmol/L High 98-107 [facility] Comment on above: Order Comment: << On admission If not done in ED>> No: Do not add to previous draw Performed By: #### 0 0121, 77968, 57850, 23699, 85356 #### [facility] [address] [place] [address], [place] CO2 [Moles/Vol] 21 mmol/L Normal 21-31 [facility] Comment on above: Order Comment: << On admission If not done in ED>> No: Do not add to previous draw Performed By: #### 0 0121, 14230, 97733, 54452, 66109 #### [facility] [address] [place] [address], [place] Creatinine [Mass/Vol] 1.22 mg/dL Normal 0.70-1.30 [facility] Comment on above: Order Comment: << On admission If not done in ED>> No: Do not add to previous draw Performed By: #### 0 0121, 92878, 03774, 42224, 92735 #### [facility] [address] [place] [address], [place] GFR/1.73 sq M predicted among blacks MDRD (S/P/Bld) [Vol rate/Area] mL/min/{1.73_m2} Normal >60 [facility] Comment on above: Order Comment: << On admission If not done in ED>> No: Do not add to previous draw Performed By: #### 0 0121, 50807, 27682, 54180, 94041 #### [facility] [address] [place] [address], [facility] GFR/1.73 sq M predicted among non-blacks MDRD (S/P/Bld) [Vol rate/Area] mL/min/{1.73_m2} Normal >60 [facility] Comment on above: Order Comment: << On admission If not done in ED>> No: Do not add to previous draw Performed By: #### 0 0121, 22968, 67227, 86283, 77051 #### [facility] [address] [place] [address], [place] Glucose [Mass/Vol] 129 mg/dL High 70-100 [facility] Comment on above: Order Comment: << On admission If not done in ED>> No: Do not add to previous draw Performed By: #### 0 0121, 92467, 15479, 43000, 09978 #### [facility] [address] [place] [address], [place] Potassium [Moles/Vol] 3.1 mmol/L Low 3.5-5.1 [facility] Comment on above: Order Comment: << On admission If not done in ED>> No: Do not add to previous draw Performed By: #### 0 0121, 30250, 89596, 58595, 52885 #### [facility] [address] [place] [address], [facility] Sodium [Moles/Vol] 139 mmol/L Normal 136-145 [facility] Comment on above: Order Comment: << On admission If not done in ED>> No: Do not add to previous draw Performed By: #### 0 [id number], [id number], [id number], [id number], [id number] #### [facility] [address] [place] [address], [facility] Urea nitrogen [Mass/Vol] 17 mg/dL Normal 7-25 [facility] Comment on above: Order Comment: << On admission If not done in ED>> No: Do not add to previous draw Performed By: #### 0 0121, 95700, 74011, 30096, 62420 #### [facility] [address] CBC COMPLETE BLOOD COUNTon 0 - Erythrocyte distribution width (RBC) [Ratio] 13.5 % Normal 11.5-15.0 [facility] Comment on above: Order Comment: << On admission If not done in ED>> No: Do not add to previous draw Performed By: #### 0 0121, 60927, 86013, 96174, 91017 #### [facility] [address] [place] [address], [facility] Hematocrit (Bld) [Volume fraction] 33.7 % Low 39.0-50.0 [facility] Comment on above: Order Comment: << On admission If not done in ED>> No: Do not add to previous draw Performed By: #### 0 0121, 19903, 40899, 15728, 30091 #### [facility] [address] Hemoglobin (Bld) [Mass/Vol] 10.9 g/dL Low 13.0-17.0 [facility] Comment on above: Order Comment: << On admission If not done in ED>> No: Do not add to previous draw Performed By: #### 0 0121, 15740, 33642, 32288, 60761 #### [facility] [address] [place] [address], [facility] MCH (RBC) [Entitic mass] 29.3 pg Normal 27.0-33.0 [facility] Comment on above: Order Comment: << On admission If not done in ED>> No: Do not add to previous draw Performed By: #### 0 0121, 74820, 26438, 15438, 11254 #### [facility] [address] MCHC (RBC) [Mass/Vol] 32.3 g/dL Normal 32.0-35.0 [facility] Comment on above: Order Comment: << On admission If not done in ED>> No: Do not add to previous draw Performed By: #### 0 0121, 50657, 73045, 82905, 41456 #### [facility] [address] MCV (RBC) [Entitic vol] 90.6 fL Normal 82.0-98.0 [facility] Comment on above: Order Comment: << On admission If not done in ED>> No: Do not add to previous draw Performed By: #### 0 0121, 60842, 88685, 48175, 80317 #### [facility] [address] [place] [address], [facility] Nucleated RBC/100 WBC (Bld) [Ratio] 0 % Normal 0-0 [facility] Comment on above: Order Comment: << On admission If not done in ED>> No: Do not add to previous draw Performed By: #### 0 0121, 80198, 95603, 17561, 65585 #### [facility] [address] [place] [address], [facility] PLAT CNT 100 10*3/uL Low 150-400 [facility] Comment on above: Order Comment: << On admission If not done in ED>> No: Do not add to previous draw Performed By: #### 0 0121, 48403, 48516, 82286, 43459 #### [facility] [address] [place] [address], [facility] RBC (Bld) [#/Vol] 3.72 10*6/uL Low 4.20-5.70 [facility] Comment on above: Order Comment: << On admission If not done in ED>> No: Do not add to previous draw Performed By: #### 0 0121, 26512, 92911, 49941, 75435 #### [facility] [address] [place] [address], [facility] WBC (Bld) [#/Vol] 17.24 10*3/uL High 4.00-10.60 [facility] Comment on above: Order Comment: << On admission If not done in ED>> No: Do not add to previous draw Performed By: #### 0 0121, 54563, 88542, 53407, 04835 #### [facility] [address] [place] [address], [facility] Erythrocyte distribution width (RBC) [Ratio] 13.5 % Normal 11.5-15.0 [facility] Comment on above: Order Comment: << On admission If not done in ED>> No: Do not add to previous draw Performed By: #### 0 0121, 12321, 95290, 86784, 47408 #### [facility] [address] [place] [address], [facility] Hematocrit (Bld) [Volume fraction] 35.2 % Low 39.0-50.0 [facility] Comment on above: Order Comment: << On admission If not done in ED>> No: Do not add to previous draw Performed By: #### 0 0121, 74453, 69291, 10799, 37726 #### [facility] [address] Hemoglobin (Bld) [Mass/Vol] 11.5 g/dL Low 13.0-17.0 [facility] Comment on above: Order Comment: << On admission If not done in ED>> No: Do not add to previous draw Performed By: #### 0 0121, 28047, 28456, 28892, 58833 #### [facility] [address] [facility] IMM PLATELET FRAC 4.3 % Normal 0.8-6.3 [facility] Comment on above: Order Comment: << On admission If not done in ED>> No: Do not add to previous draw Performed By: #### 0 0121, 02529, 16815, 43131, 27156 #### [facility] [address] MCH (RBC) [Entitic mass] 29.4 pg Normal 27.0-33.0 [facility] Comment on above: Order Comment: << On admission If not done in ED>> No: Do not add to previous draw Performed By: #### 0 0121, 17794, 28019, 67362, 81581 #### [facility] [address] MCHC (RBC) [Mass/Vol] 32.7 g/dL Normal 32.0-35.0 [facility] Comment on above: Order Comment: << On admission If not done in ED>> No: Do not add to previous draw Performed By: #### 0 0121, 05085, 76148, 93583, 61144 #### [facility] [address] [place] [address], [facility] MCV (RBC) [Entitic vol] 90.0 fL Normal 82.0-98.0 [facility] Comment on above: Order Comment: << On admission If not done in ED>> No: Do not add to previous draw Performed By: #### 0 0121, 33167, 20295, 21407, 68345 #### [facility] [address] [place] [address], [facility] Nucleated RBC/100 WBC (Bld) [Ratio] 0 % Normal 0-0 [facility] Comment on above: Order Comment: << On admission If not done in ED>> No: Do not add to previous draw Performed By: #### 0 0121, 07323, 88569, 29421, 88432 #### [facility] [address] [place] [address], [place] PLAT CNT 99 10*3/uL Low 150-400 [facility] Comment on above: Order Comment: << On admission If not done in ED>> No: Do not add to previous draw Performed By: #### 0 0121, 09566, 83011, 01834, 99819 #### [facility] [address] [place] [address], [facility] RBC (Bld) [#/Vol] 3.91 10*6/uL Low 4.20-5.70 [facility] Comment on above: Order Comment: << On admission If not done in ED>> No: Do not add to previous draw Performed By: #### 0 0121, 66892, 07949, 53758, 66694 #### [facility] [address] [place] [address], [place] WBC (Bld) [#/Vol] 19.55 10*3/uL High 4.00-10.60 [facility] Comment on above: Order Comment: << On admission If not done in ED>> No: Do not add to previous draw Performed By: #### 0 0121, 61241, 85592, 79004, 22723 #### [facility] [address] Erythrocyte distribution width (RBC) [Ratio] 13.5 % Normal 11.5-15.0 [facility] Comment on above: Order Comment: << On admission If not done in ED>> No: Do not add to previous draw Performed By: #### 0 0121, 29590, 68801, 97171, 42327 #### [facility] [address] [place] [address], [facility] Hematocrit (Bld) [Volume fraction] 38.1 % Low 39.0-50.0 [facility] Comment on above: Order Comment: << On admission If not done in ED>> No: Do not add to previous draw Performed By: #### 0 0121, 22685, 71179, 05224, 64347 #### [facility] [address] [facility] [id number] [place] [address] Hemoglobin (Bld) [Mass/Vol] 12.2 g/dL Low 13.0-17.0 [facility] Comment on above: Order Comment: << On admission If not done in ED>> No: Do not add to previous draw Performed By: #### 0 0121, 64062, 33004, 26985, 32722 #### [facility] [address] [facility] IMM PLATELET FRAC 3.8 % Normal 0.8-6.3 [facility] Comment on above: Order Comment: << On admission If not done in ED>> No: Do not add to previous draw Performed By: #### 0 0121, 97271, 83711, 94307, 91901 #### [facility] [address] [place] [address], [facility] MCH (RBC) [Entitic mass] 29.0 pg Normal 27.0-33.0 [facility] Comment on above: Order Comment: << On admission If not done in ED>> No: Do not add to previous draw Performed By: #### 0 0121, 77727, 82760, 62164, 85137 #### [facility] [address] MCHC (RBC) [Mass/Vol] 32.0 g/dL Normal 32.0-35.0 [facility] Comment on above: Order Comment: << On admission If not done in ED>> No: Do not add to previous draw Performed By: #### 0 0121, 22994, 16793, 14606, 77482 #### [facility] [address] [facility] MCV (RBC) [Entitic vol] 90.7 fL Normal 82.0-98.0 [facility] Comment on above: Order Comment: << On admission If not done in ED>> No: Do not add to previous draw Performed By: #### 0 0121, 21213, 85505, 57937, 27850 #### [facility] [address] Nucleated RBC/100 WBC (Bld) [Ratio] 0 % Normal 0-0 [facility] Comment on above: Order Comment: << On admission If not done in ED>> No: Do not add to previous draw Performed By: #### 0 0121, 34023, 96133, 77290, 02121 #### [facility] [address] PLAT CNT 112 10*3/uL Low 150-400 [facility] Comment on above: Order Comment: << On admission If not done in ED>> No: Do not add to previous draw Performed By: #### 0 0121, 42371, 90046, 09612, 63248 #### [facility] [address] RBC (Bld) [#/Vol] 4.20 10*6/uL Normal 4.20-5.70 [facility] Comment on above: Order Comment: << On admission If not done in ED>> No: Do not add to previous draw Performed By: #### 0 0121, 77427, 40303, 04460, 98866 #### [facility] [address] [place] [address], [place] WBC (Bld) [#/Vol] 21.05 10*3/uL High 4.00-10.60 [facility] Comment on above: Order Comment: << On admission If not done in ED>> No: Do not add to previous draw Performed By: #### 0 0121, 16482, 23235, 06991, 01479 #### [facility] [address] [place] [address], [place] COOXIMETRYon 03-21-2019 COHB 1 % Normal [facility] Comment on above: Performed By: #### 0 0121, 95978, 29139, 75370, 09236 #### [facility] [address] [place] [address], [place] METHB 1 % Normal [facility] Comment on above: Performed By: #### 0 0121, 37191, 08019, 09812, 13805 #### [facility] [address] [place] [address], [place] Oxygen saturation in Blood 59.8 % Low 65.0-75.0 [facility] Comment on above: Performed By: #### 0 0121, 45963, 63168, 07307, 80541 #### [facility] [address] [place] [address], [place] THB 10.9 g/dL Normal [facility] Comment on above: Performed By: #### 0 0121, 34893, 34795, 06315, 07606 #### [facility] [address] [place] [address], [place] COHB 2 % Normal [facility] Comment on above: Performed By: #### 0 0121, 82212, 58216, 03628, 35802 #### [facility] [address] [place] [address], [place] METHB 1 % Normal [facility] Comment on above: Performed By: #### 0 0121, 12385, 10073, 49013, 30390 #### [facility] [address] [place] [address], [place] Oxygen saturation in Blood 70.2 % Normal 65.0-75.0 [facility] Comment on above: Performed By: #### 0 0121, 57233, 49650, 31594, 69032 #### [facility] [address] [place] [address], [place] THB 11.5 g/dL Normal [facility] Comment on above: Performed By: #### 0 0121, 13880, 13244, 84638, 18364 #### [facility] [address] [place] [address], [facility] MAGNESIUM BLOODon 03-21-2019 Magnesium [Mass/Vol] 2.1 mg/dL Normal 1.9-2.7 [facility] Comment on above: Order Comment: << On admission If not done in ED>> No: Do not add to previous draw Performed By: #### 0 0121, 10407, 50910, 58548, 12419 #### [facility] [address] [place] [address], [place] Magnesium [Mass/Vol] 2.1 mg/dL Normal 1.9-2.7 [facility] Comment on above: Order Comment: << On admission If not done in ED>> No: Do not add to previous draw Performed By: #### 0 0121, 60545, 29271, 54105, 98916 #### [facility] [address] [place] [address], [place] Magnesium [Mass/Vol] 2.2 mg/dL Normal 1.9-2.7 [facility] Comment on above: Order Comment: << On admission If not done in ED>> No: Do not add to previous draw Performed By: #### 0 0121, 86895, 12589, 16782, 62719 #### [facility] [address] [place] [address], [place] POC GLUCOSE LABon 03-21-2019 Glucose [Mass/Vol] 107 mg/dL High 70-100 [facility] Comment on above: Performed By: #### 0 0121, 63637, 96363, 29117, 82669 #### [facility] [address] [place] [address], [place] Glucose [Mass/Vol] 103 mg/dL High 70-100 [facility] Comment on above: Performed By: #### 0 0121, 83798, 41161, 49859, 31028 #### [facility] [address] [place] [address], [place] Glucose [Mass/Vol] 112 mg/dL High 70-100 [facility] Comment on above: Performed By: #### 0 0121, 06926, 97295, 99857, 79817 #### [facility] [address] [place] [address], [place] Glucose [Mass/Vol] 127 mg/dL High 70-100 [facility] Comment on above: Performed By: #### 0 0121, 89532, 98475, 59477, 41998 #### [facility] [address] [place] [address], [place] Glucose [Mass/Vol] 95 mg/dL Normal 70-100 [facility] Comment on above: Performed By: #### 0 0121, 51379, 11610, 48996, 87125 #### [facility] [address] [place] [address], [place] Glucose [Mass/Vol] 104 mg/dL High 70-100 [facility] Comment on above: Performed By: #### 0 0121, 26555, 05604, 46359, 56068 #### [facility] [address] [place] [address], [place] Glucose [Mass/Vol] 98 mg/dL Normal 70-100 [facility] Comment on above: Performed By: #### 0 0121, 33956, 17022, 61467, 16379 #### [facility] [address] [place] [address], [place] Glucose [Mass/Vol] 113 mg/dL High 70-100 [facility] Comment on above: Performed By: #### 0 0121, 86751, 39588, 03779, 94270 #### [facility] [address] [place] [address], [place] Glucose [Mass/Vol] 130 mg/dL High 70-100 [facility] Comment on above: Performed By: #### 0 0121, 81665, 80274, 88034, 62110 #### [facility] [address] [place] [address], [place] Glucose [Mass/Vol] 130 mg/dL High 70-100 [facility] Comment on above: Performed By: #### 0 0121, 10978, 66949, 65524, 88058 #### [facility] [address] [place] [address], [place] Glucose [Mass/Vol] 129 mg/dL High 70-100 [facility] Comment on above: Performed By: #### 0 0121, 63274, 49004, 38994, 23243 #### [facility] [address] [place] [address], [place] Glucose [Mass/Vol] 108 mg/dL High 70-100 [facility] Comment on above: Performed By: #### 0 0121, 22236, 14275, 19301, 00531 #### [facility] [address] [place] [address], [place] Glucose [Mass/Vol] 101 mg/dL High 70-100 [facility] Comment on above: Performed By: #### 0 0121, 28838, 80469, 03508, 57284 #### [address] PORTABLE CHEST 1 VIEWon 03-01 PORTABLE CHEST 1 VIEW [facility] Department of Radiology [address] [place] [id number] ===== Patient Name: TRACIE CRAIN : 1965 Sex: M Age: Race: NA Pt. Location: [id number] Patient Status: I Ordered Date: 03/21/2019 5:00:00 [...] of field of view, in satisfactory position. Burbank-Sher catheter is again seen with tip projecting [...] findings. Electronically signed by:Yenni Osuna. Transcribed by: [email or web address], User Resident: [email or web address] Electronically Signed by: YENNI OSUNA @ 03/22/2019 01:07 PM I personally read this/these film(s) with this resident Normal [facility] Comment on above: Order Comment: << On admission If not done in ED>> No: Do not add to previous draw ARTERIAL BLOOD GAS WITH ICAo n 03-20-2019 BASE EXCESS -4 mmol/L Low -2-3 [facility] Comment on above: Performed By: #### 0 0121, 62743, 54380, 68596, 68357 #### [facility] [address] [place] [address], [facility] DELIVERY SYSTEMS VENTILATOR Normal [facility] Comment on above: Performed By: #### 0 0121, 71462, 62885, 69843, 67388 #### [facility] [address] [place] [address], [place] FIO2 50 % Normal [facility] Comment on above: Performed By: #### 0 0121, 13115, 02508, 42845, 95421 #### [facility] [address] [place] [address], [place] HCO3 (Bld) [Moles/Vol] 19 mmol/L Low 21-28 [facility] Comment on above: Performed By: #### 0 0121, 76816, 59700, 62859, 83399 #### [facility] [address] [place] [address], [place] IONIZED CALCIUM 1.06 mmol/L Low 1.13-1.32 [facility] Comment on above: Performed By: #### 0 0121, 43350, 23460, 28399, 51846 #### [facility] [address] [place] [address], [place] MIN VOLUME 14.2 Normal [facility] Comment on above: Performed By: #### 0 0121, 21475, 11958, 39062, 48247 #### [facility] [address] [place] [address], [facility] MODALITY AC-ASSIST CONTROL Normal [facility] Comment on above: Performed By: #### 0 0121, 78368, 40906, 25043, 76255 #### [facility] [address] [place] [address], [place] Oxygen (Bld) [Partial pressure] 82 mm[Hg] Low 83-108 [facility] Comment on above: Performed By: #### 0 0121, 82880, 15497, 52756, 82535 #### [facility] [address] [place] [address], [place] Oxygen saturation in Blood 94.4 % Normal 94.0-97.0 [facility] Comment on above: Performed By: #### 0 0121, 29191, 07618, 89767, 71406 #### [facility] [address] [place] [address], [place] PCO2 27 mmHg Low 35-45 [facility] Comment on above: Performed By: #### 0 0121, 03396, 93320, 15185, 60548 #### [facility] [address] [place] [address], [place] PEEP 8.0 CMH20 Normal [facility] Comment on above: Performed By: #### 0 0121, 60605, 23617, 28290, 53437 #### [facility] [address] [place] [address], [facility] pH (Bld) 7.45 [pH] Normal 7.35-7.45 [facility] Comment on above: Result Comment: KINJAL REYNOSO NOTE: Effective 12/02/18, reference ranges for Respiratory GEM analyzers running arterial blood have been updated to reflect the pharmacy grad intern's published reference ranges. Performed By: #### 0 0121, 70777, 94772, 51103, 99253 #### [facility] [address] [place] [address], [facility] TIDAL VOLUME (VT) CC 700 cc Normal [facility] Comment on above: Performed By: #### 0 0121, 99667, 90532, 69545, 03487 #### [facility] [address] [place] [address], [facility] BASE EXCESS -2 mmol/L Normal -2-3 [facility] Comment on above: Performed By: #### 0 0121, 63009, 83353, 53789, 87321 #### [facility] [address] [place] [address], [facility] DELIVERY SYSTEMS MV Normal [facility] Comment on above: Performed By: #### 0 0121, 35056, 37357, 59831, 44483 #### [facility] [address] [place] [address], [facility] FIO2 100 % Normal [facility] Comment on above: Performed By: #### 0 0121, 43112, 17496, 42250, 29576 #### [facility] [address] [place] [id number], [facility] HCO3 (Bld) [Moles/Vol] 22 mmol/L Normal 21-28 [facility] Comment on above: Performed By: #### 0 0121, 25456, 45239, 02879, 66045 #### [facility] [address] [place] [address], [facility] IONIZED CALCIUM 1.18 mmol/L Normal 1.13-1.32 [facility] Comment on above: Performed By: #### 0 0121, 67682, 84547, 63275, 34927 #### [facility] [address] [place] [address], [facility] MIN VOLUME 13.0 Normal [facility] Comment on above: Performed By: #### 0 0121, 09633, 58295, 44314, 59145 #### [facility] [address] [place] [address], [facility] MODALITY AC Normal [facility] Comment on above: Performed By: #### 0 0121, 90418, 92233, 38426, 59713 #### [facility] [address] [place] [address], [facility] Oxygen (Bld) [Partial pressure] 109 mm[Hg] Critically high 83-108 [facility] Comment on above: Performed By: #### 0 0121, 13623, 21261, 47505, 36471 #### [facility] [address] [place] [address], [place] Oxygen saturation in Blood 95.6 % Normal 94.0-97.0 [facility] Comment on above: Performed By: #### 0 0121, 09681, 39611, 36247, 47372 #### [facility] [address] [place] [address], [place] PCO2 33 mmHg Low 35-45 [facility] Comment on above: Performed By: #### 0 0121, 54078, 97418, 63115, 94809 #### [facility] [address] [place] [address], [place] PEEP 10.0 CMH20 Normal [facility] Comment on above: Performed By: #### 0 0121, 43960, 16841, 37872, 50438 #### [facility] [address] [place] [address], [place] PF RATIO 109 mmHg Normal [facility] Comment on above: Performed By: #### 0 0121, 22387, 16056, 04381, 63623 #### [facility] [address] [place] [address], [place] pH (Bld) 7.43 [pH] Normal 7.35-7.45 [facility] Comment on above: Result Comment: KINJAL REYNOSO NOTE: Effective 12/02/18, reference ranges for Respiratory GEM analyzers running arterial blood have been updated to reflect the pharmacy grad intern's published reference ranges. Performed By: #### 0 0121, 98378, 79926, 07304, 14893 #### [facility] [address] [place] [address], [place] TIDAL VOLUME (VT) CC 700 cc Normal [facility] Comment on above: Performed By: #### 0 0121, 23991, 54176, 71892, 77876 #### [facility] [address] [place] [address], [place] BASE EXCESS -4 mmol/L Low -2-3 [facility] Comment on above: Performed By: #### 0 0121, 60463, 33088, 50830, 09227 #### [facility] [address] [place] [address], [place] DELIVERY SYSTEMS VENTILATOR Normal [facility] Comment on above: Performed By: #### 0 0121, 13059, 31142, 01287, 74937 #### [facility] [address] [place] [address], [place] FIO2 100 % Normal [facility] Comment on above: Performed By: #### 0 0121, 16292, 18318, 11520, 78641 #### [facility] [address] [place] [address], [place] HCO3 (Bld) [Moles/Vol] 20 mmol/L Low 21-28 [facility] Comment on above: Performed By: #### 0 0121, 29302, 24871, 36405, 11233 #### [facility] [address] [place] [address], [facility] IONIZED CALCIUM 1.23 mmol/L Normal 1.13-1.32 [facility] Comment on above: Performed By: #### 0 0121, 45930, 46399, 39162, 38174 #### [facility] [address] [place] [address], [facility] MIN VOLUME 15.1 Normal [facility] Comment on above: Performed By: #### 0 0121, 45388, 11264, 93122, 83257 #### [facility] [address] [place] [id number], [facility] MODALITY AC-ASSIST CONTROL Normal [facility] Comment on above: Performed By: #### 0 0121, 88990, 94334, 76419, 42448 #### [facility] [address] [place] [address], [facility] Oxygen (Bld) [Partial pressure] 90 mm[Hg] Normal 83-108 [facility] Comment on above: Performed By: #### 0 [id number], [id number], [id number], [id number], [id number] #### [facility] [address] [place] [address], [facility] Oxygen saturation in Blood 95.1 % Normal 94.0-97.0 [facility] Comment on above: Performed By: #### 0 0121, 65505, 59411, 86858, 59646 #### [facility] [address] [place] [address], [facility] PCO2 32 mmHg Low 35-45 [facility] Comment on above: Performed By: #### 0 0121, 67685, 79402, 72019, 08156 #### [facility] [address] [place] [address], [facility] PEEP 10.0 CMH20 Normal [facility] Comment on above: Performed By: #### 0 0121, 94322, 15402, 22177, 07441 #### [facility] [address] [place] [address], [place] PF RATIO 900 mmHg Normal [facility] Comment on above: Performed By: #### 0 0121, 54115, 70312, 39911, 22369 #### [facility] [address] [place] [address], [place] pH (Bld) 7.40 [pH] Normal 7.35-7.45 [facility] Comment on above: Result Comment: KINJAL REYNOSO NOTE: Effective 12/02/18, reference ranges for Respiratory GEM analyzers running arterial blood have been updated to reflect the pharmacy grad intern's published reference ranges. Performed By: #### 0 0121, 67400, 57971, 97632, 31326 #### [facility] [address] [place] [address], [facility] TIDAL VOLUME (VT) CC 700 cc Normal [facility] Comment on above: Performed By: #### 0 0121, 30279, 82506, 34303, 94795 #### [facility] [address] [place] [address], [facility] BASIC METABOLIC PANELon 06-2 Calcium [Mass/Vol] 8.1 mg/dL Low 8.6-10.3 [facility] Comment on above: Order Comment: << On admission If not done in ED>> No: Do not add to previous draw Performed By: #### 0 0121, 29176, 10500, 07214, 66679 #### [facility] [address] [place] [address], [place] Chloride [Moles/Vol] 112 mmol/L High 98-107 [facility] Comment on above: Order Comment: << On admission If not done in ED>> No: Do not add to previous draw Performed By: #### 0 0121, 76777, 84729, 29075, 57262 #### [facility] [address] [place] [address], [facility] CO2 [Moles/Vol] 24 mmol/L Normal 21-31 [facility] Comment on above: Order Comment: << On admission If not done in ED>> No: Do not add to previous draw Performed By: #### 0 0121, 99375, 88741, 67210, 78083 #### [facility] [address] [place] [address], [facility] Creatinine [Mass/Vol] 0.97 mg/dL Normal 0.70-1.30 [facility] Comment on above: Order Comment: << On admission If not done in ED>> No: Do not add to previous draw Performed By: #### 0 0121, 53893, 97483, 87791, 62837 #### [facility] [address] [place] [address], [place] GFR/1.73 sq M predicted among blacks MDRD (S/P/Bld) [Vol rate/Area] mL/min/{1.73_m2} Normal >60 [facility] Comment on above: Order Comment: << On admission If not done in ED>> No: Do not add to previous draw Performed By: #### 0 0121, 07840, 91169, 70258, 09736 #### [facility] [address] [place] [address], [place] GFR/1.73 sq M predicted among non-blacks MDRD (S/P/Bld) [Vol rate/Area] mL/min/{1.73_m2} Normal >60 [facility] Comment on above: Order Comment: << On admission If not done in ED>> No: Do not add to previous draw Performed By: #### 0 0121, 77984, 37428, 08411, 30685 #### [facility] [address] [place] [address], [place] Glucose [Mass/Vol] 134 mg/dL High 70-100 [facility] Comment on above: Order Comment: << On admission If not done in ED>> No: Do not add to previous draw Performed By: #### 0 0121, 84605, 29935, 63550, 00389 #### [facility] [address] [place] [address], [place] Potassium [Moles/Vol] 3.9 mmol/L Normal 3.5-5.1 [facility] Comment on above: Order Comment: << On admission If not done in ED>> No: Do not add to previous draw Performed By: #### 0 0121, 90312, 47537, 97341, 47386 #### [facility] [address] [place] [address], [place] Sodium [Moles/Vol] 142 mmol/L Normal 136-145 [facility] Comment on above: Order Comment: << On admission If not done in ED>> No: Do not add to previous draw Performed By: #### 0 0121, 24603, 34643, 91173, 18346 #### [facility] [address] [place] [address], [place] Urea nitrogen [Mass/Vol] 16 mg/dL Normal 7-25 [facility] Comment on above: Order Comment: << On admission If not done in ED>> No: Do not add to previous draw Performed By: #### 0 0121, 81885, 76324, 24187, 38522 #### [facility] [address] [place] [address], [place] Chloride [Moles/Vol] 113 mmol/L High 98-107 [facility] Comment on above: Order Comment: << On admission If not done in ED>> No: Do not add to previous draw Performed By: #### 0 0121, 11774, 11766, 45427, 25612 #### [facility] [address] [place] [address], [place] CO2 [Moles/Vol] 23 mmol/L Normal 21-31 [facility] Comment on above: Order Comment: << On admission If not done in ED>> No: Do not add to previous draw Performed By: #### 0 0121, 71785, 36818, 60340, 40176 #### [facility] [address] [place] [address], [place] Creatinine [Mass/Vol] 1.11 mg/dL Normal 0.70-1.30 [facility] Comment on above: Order Comment: << On admission If not done in ED>> No: Do not add to previous draw Performed By: #### 0 0121, 44637, 79009, 59911, 14978 #### [facility] [address] [place] [address], [place] Glucose [Mass/Vol] 157 mg/dL High 70-100 [facility] Comment on above: Order Comment: << On admission If not done in ED>> No: Do not add to previous draw Performed By: #### 0 0121, 27913, 90510, 59452, 37053 #### [facility] [address] [place] [address], [place] Potassium [Moles/Vol] 4.0 mmol/L Normal 3.5-5.1 [facility] Comment on above: Order Comment: << On admission If not done in ED>> No: Do not add to previous draw Performed By: #### 0 0121, 45569, 48643, 69329, 89241 #### [facility] [address] [place] [address], [place] Sodium [Moles/Vol] 143 mmol/L Normal 136-145 [facility] Comment on above: Order Comment: << On admission If not done in ED>> No: Do not add to previous draw Performed By: #### 0 0121, 38742, 25480, 71090, 21499 #### [facility] [address] [place] [address], [place] Urea nitrogen [Mass/Vol] 17 mg/dL Normal 7-25 [facility] Comment on above: Order Comment: << On admission If not done in ED>> No: Do not add to previous draw Performed By: #### 0 0121, 73394, 33140, 26515, 80636 #### [facility] [address] [place] [address], [place] Calcium [Mass/Vol] 8.7 mg/dL Normal 8.6-10.3 [facility] Comment on above: Order Comment: << On admission If not done in ED>> No: Do not add to previous draw Performed By: #### 0 0121, 78316, 48339, 18180, 86399 #### [facility] [address] [place] [address], [place] CO2 [Moles/Vol] 22 mmol/L Normal 21-31 [facility] Comment on above: Order Comment: << On admission If not done in ED>> No: Do not add to previous draw Performed By: #### 0 0121, 65783, 73034, 23031, 75012 #### [facility] [address] [place] [address], [place] Creatinine [Mass/Vol] 1.00 mg/dL Normal 0.70-1.30 [facility] Comment on above: Order Comment: << On admission If not done in ED>> No: Do not add to previous draw Performed By: #### 0 0121, 16013, 32528, 97367, 07520 #### [facility] [address] [place] [address], [place] Glucose [Mass/Vol] 126 mg/dL High 70-100 [facility] Comment on above: Order Comment: << On admission If not done in ED>> No: Do not add to previous draw Performed By: #### 0 0121, 16598, 81194, 22376, 41757 #### [facility] [address] Potassium [Moles/Vol] 4.1 mmol/L Normal 3.5-5.1 [facility] Comment on above: Order Comment: << On admission If not done in ED>> No: Do not add to previous draw Performed By: #### 0 0121, 15073, 78756, 60462, 25770 #### [facility] [address] CBC COMPLETE BLOOD COUNTon 0 - Erythrocyte distribution width (RBC) [Ratio] 13.2 % Normal 11.5-15.0 [facility] Comment on above: Order Comment: << On admission If not done in ED>> No: Do not add to previous draw Performed By: #### 0 0121, 42195, 84558, 44126, 28742 #### [facility] [address] Hematocrit (Bld) [Volume fraction] 39.8 % Normal 39.0-50.0 [facility] Comment on above: Order Comment: << On admission If not done in ED>> No: Do not add to previous draw Performed By: #### 0 0121, 49322, 63520, 67933, 86324 #### [facility] [address] Hemoglobin (Bld) [Mass/Vol] 12.8 g/dL Low 13.0-17.0 [facility] Comment on above: Order Comment: << On admission If not done in ED>> No: Do not add to previous draw Performed By: #### 0 0121, 62933, 39622, 03878, 28131 #### [facility] [address] [place] [address], [facility] MCH (RBC) [Entitic mass] 28.8 pg Normal 27.0-33.0 [facility] Comment on above: Order Comment: << On admission If not done in ED>> No: Do not add to previous draw Performed By: #### 0 0121, 91218, 80261, 89738, 46615 #### [facility] [address] MCHC (RBC) [Mass/Vol] 32.2 g/dL Normal 32.0-35.0 [facility] Comment on above: Order Comment: << On admission If not done in ED>> No: Do not add to previous draw Performed By: #### 0 0121, 28949, 75978, 35191, 91866 #### [facility] [address] MCV (RBC) [Entitic vol] 89.4 fL Normal 82.0-98.0 [facility] Comment on above: Order Comment: << On admission If not done in ED>> No: Do not add to previous draw Performed By: #### 0 0121, 40397, 81102, 99236, 18968 #### [facility] [address] Nucleated RBC/100 WBC (Bld) [Ratio] 0 % Normal 0-0 [facility] Comment on above: Order Comment: << On admission If not done in ED>> No: Do not add to previous draw Performed By: #### 0 0121, 02035, 41164, 67796, 90208 #### [facility] [address] [facility] [place] [address], [facility] PLAT CNT 144 10*3/uL Low 150-400 [facility] Comment on above: Order Comment: << On admission If not done in ED>> No: Do not add to previous draw Performed By: #### 0 0121, 52490, 74179, 40248, 83143 #### [facility] [address] [place] [address], [facility] RBC (Bld) [#/Vol] 4.45 10*6/uL Normal 4.20-5.70 [facility] Comment on above: Order Comment: << On admission If not done in ED>> No: Do not add to previous draw Performed By: #### 0 0121, 17383, 46660, 08103, 40389 #### [facility] [address] [place] [address], [facility] WBC (Bld) [#/Vol] 18.51 10*3/uL High 4.00-10.60 [facility] Comment on above: Order Comment: << On admission If not done in ED>> No: Do not add to previous draw Performed By: #### 0 0121, 91976, 10130, 02202, 99406 #### [facility] [address] [place] [address], [facility] Erythrocyte distribution width (RBC) [Ratio] 13.1 % Normal 11.5-15.0 [facility] Comment on above: Order Comment: << On admission If not done in ED>> No: Do not add to previous draw Performed By: #### 0 0121, 83580, 78738, 98019, 86108 #### [facility] [address] [place] [address], [facility] Hematocrit (Bld) [Volume fraction] 43.9 % Normal 39.0-50.0 [facility] Comment on above: Order Comment: << On admission If not done in ED>> No: Do not add to previous draw Performed By: #### 0 0121, 19210, 51224, 59763, 84861 #### [facility] [address] [place] [address], [place] Hemoglobin (Bld) [Mass/Vol] 13.9 g/dL Normal 13.0-17.0 [facility] Comment on above: Order Comment: << On admission If not done in ED>> No: Do not add to previous draw Performed By: #### 0 0121, 52282, 53321, 89931, 98760 #### [facility] [address] MCH (RBC) [Entitic mass] 28.7 pg Normal 27.0-33.0 [facility] Comment on above: Order Comment: << On admission If not done in ED>> No: Do not add to previous draw Performed By: #### 0 0121, 16635, 70395, 30597, 91690 #### [facility] [address] MCHC (RBC) [Mass/Vol] 31.7 g/dL Low 32.0-35.0 [facility] Comment on above: Order Comment: << On admission If not done in ED>> No: Do not add to previous draw Performed By: #### 0 0121, 82479, 60943, 75053, 70467 #### [facility] [address] MCV (RBC) [Entitic vol] 90.5 fL Normal 82.0-98.0 [facility] Comment on above: Order Comment: << On admission If not done in ED>> No: Do not add to previous draw Performed By: #### 0 0121, 84964, 74275, 82038, 78805 #### [facility] [address] PLAT CNT 185 10*3/uL Normal 150-400 [facility] Comment on above: Order Comment: << On admission If not done in ED>> No: Do not add to previous draw Performed By: #### 0 0121, 58426, 42912, 65397, 57532 #### [facility] [address] [place] [address], [facility] RBC (Bld) [#/Vol] 4.85 10*6/uL Normal 4.20-5.70 [facility] Comment on above: Order Comment: << On admission If not done in ED>> No: Do not add to previous draw Performed By: #### 0 0121, 69748, 93078, 29500, 61088 #### [facility] [address] [place] [address], [facility] WBC (Bld) [#/Vol] 19.37 10*3/uL High 4.00-10.60 [facility] Comment on above: Order Comment: << On admission If not done in ED>> No: Do not add to previous draw Performed By: #### 0 0121, 01095, 19805, 02767, 45949 #### [facility] [address] [place] [address], [facility] Hematocrit (Bld) [Volume fraction] 42.3 % Normal 39.0-50.0 [facility] Comment on above: Order Comment: << On admission If not done in ED>> No: Do not add to previous draw Performed By: #### 0 0121, 39253, 40451, 34648, 02067 #### [facility] [address] [place] [address], [facility] Hemoglobin (Bld) [Mass/Vol] 14.0 g/dL Normal 13.0-17.0 [facility] Comment on above: Order Comment: << On admission If not done in ED>> No: Do not add to previous draw Performed By: #### 0 0121, 70205, 82542, 90820, 66958 #### [facility] [address] [place] [address], [facility] MCH (RBC) [Entitic mass] 29.2 pg Normal 27.0-33.0 [facility] Comment on above: Order Comment: << On admission If not done in ED>> No: Do not add to previous draw Performed By: #### 0 0121, 98708, 13605, 75620, 22238 #### [facility] [address] [place] [address], [facility] MCHC (RBC) [Mass/Vol] 33.1 g/dL Normal 32.0-35.0 [facility] Comment on above: Order Comment: << On admission If not done in ED>> No: Do not add to previous draw Performed By: #### 0 0121, 73302, 32301, 86938, 94206 #### [facility] [address] [facility] [place] [address], [facility] MCV (RBC) [Entitic vol] 88.3 fL Normal 82.0-98.0 [facility] Comment on above: Order Comment: << On admission If not done in ED>> No: Do not add to previous draw Performed By: #### 0 0121, 04058, 82949, 14872, 39108 #### [facility] [address] [facility] [place] [address], [facility] PLAT CNT 169 10*3/uL Normal 150-400 [facility] Comment on above: Order Comment: << On admission If not done in ED>> No: Do not add to previous draw Performed By: #### 0 0121, 03798, 43509, 51707, 38329 #### [facility] [address] [facility] [place] [address], [facility] RBC (Bld) [#/Vol] 4.79 10*6/uL Normal 4.20-5.70 [facility] Comment on above: Order Comment: << On admission If not done in ED>> No: Do not add to previous draw Performed By: #### 0 0121, 76760, 84829, 84672, 20537 #### [facility] [address] [facility] [place] [address], [facility] WBC (Bld) [#/Vol] 19.78 10*3/uL High 4.00-10.60 [facility] Comment on above: Order Comment: << On admission If not done in ED>> No: Do not add to previous draw Performed By: #### 0 0121, 03664, 10367, 07091, 44167 #### [facility] [address] [facility] [place] [address], [facility] COOXIMETRYon 03-20-2019 COHB 2 % Normal [facility] Comment on above: Performed By: #### 0 0121, 92036, 57226, 07398, 89053 #### [facility] [address] [place] [address], [facility] METHB 0 % Normal [facility] Comment on above: Performed By: #### 0 0121, 46440, 82324, 40096, 63218 #### [facility] [address] [place] [address], [facility] Oxygen saturation in Blood 68.0 % Normal 65.0-75.0 [facility] Comment on above: Performed By: #### 0 0121, 11280, 54847, 94112, 06878 #### [facility] [address] [place] [address], [facility] THB 13.2 g/dL Normal [facility] Comment on above: Performed By: #### 0 0121, 31179, 52649, 82296, 24330 #### [facility] [address] [place] [address], [facility] CPK-MB PROFILEon 03-20-2019 CK [Catalytic activity/Vol] 2914 U/L Critically high 30-223 [facility] Comment on above: Order Comment: << On admission If not done in ED>> No: Do not add to previous draw Performed By: #### 0 0121, 87056, 25605, 38427, 70650 #### [facility] [address] [place] [address], [facility] CK.MB [Mass/Vol] 3.8 ng/mL Critically high 0.0-1.9 [facility] Comment on above: Order Comment: << On admission If not done in ED>> No: Do not add to previous draw Result Comment: M-CR ITICAL RESULT(S) REVIEWED, CALLED TO AND READ BACK BY DAKOTAH MONTANO RN AT 0550 Performed By: #### 0 0121, 50540, 78902, 80179, 00605 #### [facility] [address] [place] [address], [facility] CK.MB [Mass/Vol] 111.1 ng/mL High 0.0-5.0 [facility] Comment on above: Order Comment: << On admission If not done in ED>> No: Do not add to previous draw Result Comment: IF T OTAL CK <200 U/L AND: 1. CKMB IS 5-10 NG/ML----BORDERLINE 2. CKMB IS >10 NG/ML----INDICATIVE OF [place] OR IF TOTAL CK >200 U/L AND CKMB INDEX >1.9----[place] Performed By: #### 0 0121, 30506, 64583, 01181, 23523 #### [facility] [address] [place] [address], [facility] LACTATE BLOODon 03-20-2019 Lactate [Moles/Vol] 1.9 mmol/L Normal 0.5-2.2 [facility] Comment on above: Order Comment: << On admission If not done in ED>> No: Do not add to previous draw Performed By: #### 0 0121, 53169, 14106, 85722, 22920 #### [facility] [address] [place] [address], [facility] Lactate [Moles/Vol] 3.1 mmol/L Critically high 0.5-2.2 [facility] Comment on above: Order Comment: << On admission If not done in ED>> No: Do not add to previous draw Result Comment: M-NY EVIOUS CRITICAL RESULT Performed By: #### 0 0121, 67881, 22205, 67900, 37902 #### [facility] [address] [place] [address], [facility] Lactate [Moles/Vol] 2.7 mmol/L Critically high 0.5-2.2 [facility] Comment on above: Order Comment: << On admission If not done in ED>> No: Do not add to previous draw Result Comment: M-NY EVIOUS CRITICAL RESULT Performed By: #### 0 0121, 34078, 90433, 23999, 75285 #### [facility] [address] [place] [address], [facility] MAGNESIUM BLOODon 03-20-2019 Magnesium [Mass/Vol] 2.1 mg/dL Normal 1.9-2.7 [facility] Comment on above: Order Comment: << On admission If not done in ED>> No: Do not add to previous draw Performed By: #### 0 0121, 54534, 24950, 25413, 12462 #### [facility] [address] [place] [address], [facility] Magnesium [Mass/Vol] 2.3 mg/dL Normal 1.9-2.7 [facility] Comment on above: Order Comment: << On admission If not done in ED>> No: Do not add to previous draw Performed By: #### 0 0121, 84310, 60736, 85059, 44182 #### [facility] [address] [place] [address], [facility] Magnesium [Mass/Vol] 2.4 mg/dL Normal 1.9-2.7 [facility] Comment on above: Order Comment: << On admission If not done in ED>> No: Do not add to previous draw Performed By: #### 0 0121, 84272, 02751, 10941, 95316 #### [facility] [address] [place] [id number] Operative Reporton 9 Operative Report MR#: [id number] [facility] Pt. Name: Tracie Crain Room #: [id number] Discharge Date: Birthdate: 1965 OPERATIVE REPORT DATE [...] Black MD Date Trans: 03/20/2019 02:34 A/bessie [id number] cc: Titus Villegas M.D. [address] [id number] [place] [facility] Operative Report MR#: [id number] [facility] Pt. Name: Tracie Crain Room #: [id number] [id number] Discharge Date: Birthdate: 1965 OPERATIVE REPORT DATE [...] and posteromedial papillary muscle. These were 4.0 [place] stitches and they were brought out in [...] Black MD Date Trans: 03/20/2019 02:21 A/bessie [id number] cc: Titus Villegas M.D. [address] [address] Normal [facility] POC GLUCOSE LABon 03-20-2019 Glucose [Mass/Vol] 117 mg/dL High 70-100 [facility] Comment on above: Performed By: #### 0 0121, 29961, 60398, 73291, 04852 #### [facility] [address] [facility] [address], [place] Glucose [Mass/Vol] 114 mg/dL High 70-100 [facility] Comment on above: Performed By: #### 0 0121, 53144, 50555, 24694, 76687 #### [facility] [address] [place] [address], [place] Glucose [Mass/Vol] 117 mg/dL High 70-100 [facility] Comment on above: Performed By: #### 0 0121, 41450, 78472, 40162, 02030 #### [facility] [address] [place] [address], [place] Glucose [Mass/Vol] 99 mg/dL Normal 70-100 [facility] Comment on above: Performed By: #### 0 0121, 51819, 87225, 91687, 77840 #### [facility] [address] [place] [address], [place] Glucose [Mass/Vol] 125 mg/dL High 70-100 [facility] Comment on above: Performed By: #### 0 0121, 36708, 82995, 47508, 02362 #### [facility] [address] [place] [address], [place] Glucose [Mass/Vol] 102 mg/dL High 70-100 [facility] Comment on above: Performed By: #### 0 0121, 14268, 96536, 56185, 98317 #### [facility] [address] [place] [address], [place] Glucose [Mass/Vol] 97 mg/dL Normal 70-100 [facility] Comment on above: Performed By: #### 0 0121, 39967, 43106, 41777, 83829 #### [facility] [address] [place] [address], [place] Glucose [Mass/Vol] 102 mg/dL High 70-100 [facility] Comment on above: Performed By: #### 0 0121, 26258, 01291, 22975, 86804 #### [facility] [address] [place] [address], [place] Glucose [Mass/Vol] 124 mg/dL High 70-100 [facility] Comment on above: Performed By: #### 0 0121, 46955, 86612, 10363, 21493 #### [facility] [address] [place] [address], [place] Glucose [Mass/Vol] 112 mg/dL High 70-100 [facility] Comment on above: Order Comment: << On admission If not done in ED>> No: Do not add to previous draw Performed By: #### 0 0121, 75851, 23198, 00777, 51925 #### [facility] [address] [place] [address], [place] Glucose [Mass/Vol] 129 mg/dL High 70-100 [facility] Comment on above: Performed By: #### 0 0121, 36496, 86343, 88583, 57150 #### [facility] [address] [place] [address], [place] Glucose [Mass/Vol] 122 mg/dL High 70-100 [facility] Comment on above: Performed By: #### 0 0121, 79996, 27304, 66995, 09858 #### [facility] [address] [place] [address], [place] Glucose [Mass/Vol] 133 mg/dL High 70-100 [facility] Comment on above: Performed By: #### 0 0121, 88883, 45867, 69949, 35660 #### [facility] [address] [place] [address], [place] Glucose [Mass/Vol] 130 mg/dL High 70-100 [facility] Comment on above: Performed By: #### 5 7307 #### [facility] [address] [place] [address], [place] Glucose [Mass/Vol] 142 mg/dL High 70-100 [facility] Comment on above: Performed By: #### 5 7307 #### [facility] [address] [facility] [place] [address], [facility] PORTABLE CHEST 1 VIEWon 03-01 PORTABLE CHEST 1 VIEW [facility] Department of Radiology [address] [place] [address] ===== Patient Name: TRACIE CRAIN : 1965 Sex: M Age: Race: NA Pt. Location: [id number] Patient Status: I Ordered Date: 03/20/2019 8:05:00 [...] tube is 7 cm from the loki. Burbank-Sher catheter with tip projecting over the pulmonary [...] findings. Electronically signed by:Yenni Osuna. Transcribed by: [email or web address], User Resident: ANAI ALVARADO Electronically Signed by: YENNI OSUNA @ 03/22/2019 11:07 AM I personally read this/these film(s) with this resident Normal [facility] Comment on above: Order Comment: << On admission If not done in ED>> No: Do not add to previous draw PORTABLE CHEST 1 VIEW [facility] Department of Radiology [address] [place] [id number] ===== Patient Name: TRACIE CRAIN : 1965 Sex: M Age: Race: NA Pt. Location: [id number] Patient Status: I Ordered Date: 03/20/2019 5:00:00 [...] tube is 7 cm from the loki. Burbank-Sher catheter with tip projecting over the pulmonary [...] findings. Electronically signed by:Divya Collins. Transcribed by: [email or web address], User Resident: ANAI ALVARADO Electronically Signed by: DIVYA COLLINS @ 03/20/2019 11:01 AM I personally read this/these film(s) with this resident Normal [facility] Comment on above: Order Comment: << On admission If not done in ED>> No: Do not add to previous draw PROTHROMBIN TIMEon 9 INR Coag (PPP) [Relative time] 1.37 {INR} High 0.91-1.16 [facility] Comment on above: Order Comment: << [...] RANGE. CHEST 1995;108:231S-246S. Performed By: #### 0 9810, 62002, 82052, 19231, 28400 #### [facility] [address] [place] [address], [place] PT Coag (PPP) [Time] 16.9 s High 12.3-14.8 [facility] Comment on above: Order Comment: << On admission If not done in ED>> No: Do not add to previous draw Result Comment: ALL RESULTS MUST BE INTERPRETED WITH RESPECT TO BLOOD DRAWING ARTIFACT OR DILUTION ERROR OF ANTICOAGULANT AT THE TIME OF SAMPLING. Performed By: #### 0 0121, 99866, 12354, 25744, 30960 #### [facility] [address] [place] [address], [place] ACTIVATED CLOTTING TIMEon ACTIVATED CLOTTING TIME 115 sec Normal 82-152 [facility] Comment on above: Performed By: #### 8 5123, 71089 #### [facility] [address] [place] [address], [place] ACTIVATED CLOTTING TIME 508 sec High 82-152 [facility] Comment on above: Performed By: #### 8 5123, 59858 #### [facility] [address] [place] [address], [place] ACTIVATED CLOTTING TIME 508 sec High 82-152 [facility] Comment on above: Performed By: #### 8 5123, 94861 #### [facility] [address] [place] [address], [place] ACTIVATED CLOTTING TIME 610 sec High 82-152 [facility] Comment on above: Performed By: #### 8 5123, 52424 #### [facility] [address] [place] [address], [place] ACTIVATED CLOTTING TIME 621 sec High 82-152 [facility] Comment on above: Performed By: #### 8 5123, 25636 #### [facility] [address] [place] [address], [place] ACTIVATED CLOTTING TIME 660 sec High 82-152 [facility] Comment on above: Performed By: #### 8 5123, 35031 #### [facility] [address] [place] [address], [place] ACTIVATED CLOTTING TIME 508 sec High 82-152 [facility] Comment on above: Performed By: #### 8 5123, 05881 #### [facility] [address] [place] [address], [place] ACTIVATED CLOTTING TIME 514 sec High 82-152 [facility] Comment on above: Performed By: #### 0 0121, 10710, 16190, 03404, 46210 #### [facility] [address] [place] [address], [place] ACTIVATED CLOTTING TIME 514 sec High 82-152 [facility] Comment on above: Performed By: #### 0 0121, 24064, 76824, 01790, 32100 #### [facility] [address] [place] [address], [place] ACTIVATED CLOTTING TIME 502 sec High 82-152 [facility] Comment on above: Performed By: #### 0 0121, 02594, 61645, 90870, 92298 #### [facility] [address] [place] [address], [place] ACTIVATED CLOTTING TIME 473 sec High 82-152 [facility] Comment on above: Performed By: #### 0 0121, 29799, 76865, 34215, 49623 #### [facility] [address] [place] [address], [place] ACTIVATED CLOTTING TIME 508 sec High 82-152 [facility] Comment on above: Performed By: #### 0 0121, 35546, 17898, 35284, 82400 #### [facility] [address] [place] [address], [place] ACTIVATED CLOTTING TIME 115 sec Normal 82-152 [facility] Comment on above: Performed By: #### 0 0121, 03531, 45253, 48668, 01055 #### [facility] [address] [place] [address], [facility] APTTon 03-19-2019 aPTT Coag (Bld) [Time] 28.6 s Normal 25.0-35.0 [facility] Comment on above: Result Comment: ALL [...] FOR THIS PURPOSE. Performed By: #### 8 8083, 11675 #### [facility] [address] [facility] [place] [address], [facility] aPTT Coag (Bld) [Time] 33.6 s Normal 25.0-35.0 [facility] Comment on above: Order Comment: If [...] THIS PURPOSE. Performed By: #### 0 0121, 19135, 27560, 28687, 64925 #### [facility] [address] [facility] [place] [address], [facility] ARTERIAL BLOOD GAS W/COOXon 03-19-2019 BASE EXCESS -8 mmol/L Low -2-3 [facility] Comment on above: Performed By: #### 8 9511, 14938 ####[facility] [facility].[address] COHB 2.6 % High 0.0-1.5 [facility] Comment on above: Performed By: #### 8 7401, 55900 ####[facility] [facility] [place] [address], [facility] DELIVERY SYSTEMS VENT Normal [facility] Comment on above: Performed By: #### 8 271, 39048 ####[facility] [facility] [place] [address], [facility] FIO2 100 % Normal [facility] Comment on above: Performed By: #### 8 169, 31995 ####[facility] [facility] [place] [address], [facility] HCO3 (Bld) [Moles/Vol] 19 mmol/L Low 21-28 [facility] Comment on above: Performed By: #### 8 104, 24391 ####[place] [address] [facility] [place] [address], [facility] METHB 0.8 % Normal 0.0-1.5 [facility] Comment on above: Performed By: #### 8 679, 63676 ####[facility] [facility] [place] [address], [facility] MIN VOLUME 11.6 Normal [facility] Comment on above: Performed By: #### 8 469, 55990 ####[facility] [facility] [place] [address], [facility] MODALITY AC Normal [facility] Comment on above: Performed By: #### 8 545, 87435 ####[facility] [facility] [place] [address], [facility] Oxygen (Bld) [Partial pressure] 61 mm[Hg] Low 83-108 [facility] Comment on above: Performed By: #### 8 949, 61237 ####[facility] [facility] [place] [address], [facility] Oxygen saturation in Blood 88.9 % Low 94.0-97.0 [facility] Comment on above: Performed By: #### 8 221, 30700 ####[facility] [place] [address], [facility] PCO2 43 mmHg Normal 35-45 [facility] Comment on above: Performed By: #### 8 4801, 49187 ####[facility] [place] [address], [facility] PEEP 10.0 CMH20 Normal [facility] Comment on above: Performed By: #### 8 0831, 97918 ####[facility] [place] [address], [facility] pH (Bld) 7.26 [pH] Low 7.35-7.45 [facility] Comment on above: Result Comment: KINJAL REYNOSO NOTE: Effective 12/02/18, reference ranges for Respiratory GEM analyzers running arterial blood have been updated to reflect the pharmacy grad intern's published reference ranges. Performed By: #### 8 5714, 02653 ####[facility] [place] [address], [facility] THB 14.2 g/dL Normal 12.0-16.3 [facility] Comment on above: Performed By: #### 8 5521, 72756 ####[facility] [place] [address], [facility] TIDAL VOLUME (VT) CC 700 cc Normal [facility] Comment on above: Performed By: #### 8 1096, 75234 ####[facility] [place] [address], [facility] ARTERIAL BLOOD GAS WITH ICAo n 03-19-2019 BASE EXCESS -4 mmol/L Low -2-3 [facility] Comment on above: Performed By: #### 5 2003 #### [facility] [address] [place] [address], [place] DELIVERY SYSTEMS MV Normal [facility] Comment on above: Performed By: #### 5 8268 #### [facility] [address] FIO2 100 % Normal [facility] Comment on above: Performed By: #### 5 7307 #### [facility] [address] [facility]. [address] HCO3 (Bld) [Moles/Vol] 20 mmol/L Low 21-28 [facility] Comment on above: Performed By: #### 5 7307 #### [facility] [address] IONIZED CALCIUM 1.21 mmol/L Normal 1.13-1.32 [facility] Comment on above: Performed By: #### 5 7307 #### [facility] [address] MIN VOLUME 13.6 Normal [facility] Comment on above: Performed By: #### 5 7307 #### [facility] [address] [facility]. [address] MODALITY AC Normal [facility] Comment on above: Performed By: #### 5 7307 #### [facility] [address] [facility]. [address] Oxygen (Bld) [Partial pressure] 74 mm[Hg] Low 83-108 [facility] Comment on above: Performed By: #### 5 7307 #### [facility] [address] [facility]. [address] Oxygen saturation in Blood 93.5 % Low 94.0-97.0 [facility] Comment on above: Performed By: #### 5 7307 #### [facility] [address] [facility] [place] [address], [facility] PCO2 33 mmHg Low 35-45 [facility] Comment on above: Performed By: #### 5 7307 #### [facility] [address] [facility] [place] [address], [facility] PEEP 10.0 CMH20 Normal [facility] Comment on above: Performed By: #### 5 7307 #### [facility] [address] [place] [address], [facility] PF RATIO 74 mmHg Normal [facility] Comment on above: Performed By: #### 5 7307 #### [facility] [address] [place] [address], [facility] pH (Bld) 7.39 [pH] Normal 7.35-7.45 [facility] Comment on above: Result Comment: PLEA SE NOTE: Effective 12/02/18, reference ranges for Respiratory GEM analyzers running arterial blood have been updated to reflect the pharmacy grad intern's published reference ranges. Performed By: #### 5 7307 #### [facility] [address] [place] [address], [facility] TIDAL VOLUME (VT) CC 700 cc Normal [facility] Comment on above: Performed By: #### 5 7307 #### [facility] [address] [place] [address], [facility] BASE EXCESS -7 mmol/L Low -2-3 [facility] Comment on above: Order Comment: R/O P ulmonary Edema Performed By: #### 8 4971, 73240 ####[facility] [facility] [place] [address], [facility] DELIVERY SYSTEMS MV Normal [facility] Comment on above: Order Comment: R/O P ulmonary Edema Performed By: #### 8 5191, 00975 ####[facility] [place] [address], [place] FIO2 100 % Normal [facility] Comment on above: Order Comment: R/O P ulmonary Edema Performed By: #### 8 9351, 22834 ####[facility] [place] [address], [place] HCO3 (Bld) [Moles/Vol] 21 mmol/L Normal 21-28 [facility] Comment on above: Order Comment: R/O P ulmonary Edema Performed By: #### 8 4511, 86679 ####[facility] [place] [address], [facility] IONIZED CALCIUM 1.36 mmol/L High 1.13-1.32 [facility] Comment on above: Order Comment: R/O P ulmonary Edema Performed By: #### 8 4511, 79774 ####[facility] [place] [address], [facility] MIN VOLUME 13.0 Normal [facility] Comment on above: Order Comment: R/O P ulmonary Edema Performed By: #### 8 4511, 50226 ####[facility] [place] [address], [facility] MODALITY SIMV Normal [facility] Comment on above: Order Comment: R/O P ulmonary Edema Performed By: #### 8 4511, 37525 ####[facility] [place] [address], [facility] Oxygen (Bld) [Partial pressure] 63 mm[Hg] Low 83-108 [facility] Comment on above: Order Comment: R/O P ulmonary Edema Performed By: #### 8 4511, 33155 ####[facility] [place] [address], [facility] Oxygen saturation in Blood 89.3 % Low 94.0-97.0 [facility] Comment on above: Order Comment: R/O P ulmonary Edema Performed By: #### 8 4511, 60681 ####[facility] [place] [address], [facility] PCO2 46 mmHg High 35-45 [facility] Comment on above: Order Comment: R/O P ulmonary Edema Performed By: #### 8 4511, 87000 ####[facility] [place] [address], [place] PEEP 8.0 CMH20 Normal [facility] Comment on above: Order Comment: R/O P ulmonary Edema Performed By: #### 8 4161, 76348 ####[facility] [facility] [place] [address], [facility] PF RATIO 63 mmHg Normal [facility] Comment on above: Order Comment: R/O P ulmonary Edema Performed By: #### 8 6531, 79011 ####[facility] [facility] pH (Bld) 7.26 [pH] Low 7.35-7.45 [facility] Comment on above: Order Comment: R/O P ulmonary Edema Result Comment: KINJAL REYNOSO NOTE: Effective 12/02/18, reference ranges for Respiratory GEM analyzers running arterial blood have been updated to reflect the pharmacy grad intern's published reference ranges. Performed By: #### 8 4171, 30439 ####[facility] [facility].[address] PRESSURE SUPPORT 5 Normal [facility] Comment on above: Order Comment: R/O P ulmonary Edema Performed By: #### 8 6916, 09135 ####[facility] [facility] [place] [address], [facility] TIDAL VOLUME (VT) CC 600 cc Normal [facility] Comment on above: Order Comment: R/O P ulmonary Edema Performed By: #### 8 2976, 62320 ####[facility] [facility] [place] [address], [facility] BASIC METABOLIC PANELon 06-2 -2018 Calcium [Mass/Vol] 8.6 mg/dL Normal 8.6-10.3 [facility] Comment on above: Order Comment: No: D o not add to previous draw Performed By: #### 5 7307 #### [facility] [address] [place] [address], [facility] Chloride [Moles/Vol] 113 mmol/L High 98-107 [facility] Comment on above: Order Comment: No: D o not add to previous draw Performed By: #### 5 7307 #### [facility] [address] [place] [address], [place] CO2 [Moles/Vol] 21 mmol/L Normal 21-31 [facility] Comment on above: Order Comment: No: D o not add to previous draw Performed By: #### 5 7307 #### [facility] [address] [place] [address], [place] Creatinine [Mass/Vol] 1.14 mg/dL Normal 0.70-1.30 [facility] Comment on above: Order Comment: No: D o not add to previous draw Performed By: #### 5 7307 #### [facility] [address] [place] [address], [place] GFR/1.73 sq M predicted among blacks MDRD (S/P/Bld) [Vol rate/Area] mL/min/{1.73_m2} Normal >60 [facility] Comment on above: Order Comment: No: D o not add to previous draw Performed By: #### 5 7307 #### [facility] [address] [place] [address], [place] GFR/1.73 sq M predicted among non-blacks MDRD (S/P/Bld) [Vol rate/Area] mL/min/{1.73_m2} Normal >60 [facility] Comment on above: Order Comment: No: D o not add to previous draw Performed By: #### 5 7307 #### [facility] [address] [place] [address], [place] Glucose [Mass/Vol] 164 mg/dL High 70-100 [facility] Comment on above: Order Comment: No: D o not add to previous draw Performed By: #### 5 7307 #### [facility] [address] [place] [address], [place] Potassium [Moles/Vol] 4.3 mmol/L Normal 3.5-5.1 [facility] Comment on above: Order Comment: No: D o not add to previous draw Performed By: #### 5 7307 #### [facility] [address] [place] [address], [place] Sodium [Moles/Vol] 142 mmol/L Normal 136-145 [facility] Comment on above: Order Comment: No: D o not add to previous draw Performed By: #### 5 7307 #### [facility] [address] [place] [address], [place] Urea nitrogen [Mass/Vol] 19 mg/dL Normal 7-25 [facility] Comment on above: Order Comment: No: D o not add to previous draw Performed By: #### 5 7307 #### [facility] [address] [place] [address], [place] Calcium [Mass/Vol] 9.8 mg/dL Normal 8.6-10.3 [facility] Comment on above: Order Comment: If no t done in ED No: Do not add to previous draw Performed By: #### 8 5603, 32101 #### [facility] [address] [place] [address], [place] Chloride [Moles/Vol] 112 mmol/L High 98-107 [facility] Comment on above: Order Comment: If no t done in ED No: Do not add to previous draw Performed By: #### 8 5613, 45887 #### [facility] [address] [place] [address], [place] CO2 [Moles/Vol] 21 mmol/L Normal 21-31 [facility] Comment on above: Order Comment: If no t done in ED No: Do not add to previous draw Performed By: #### 8 6023, 56521 #### [facility] [address] [place] [address], [place] Creatinine [Mass/Vol] 1.07 mg/dL Normal 0.70-1.30 [facility] Comment on above: Order Comment: If no t done in ED No: Do not add to previous draw Performed By: #### 8 5123, 72213 #### [facility] [address] [place] [address], [place] GFR/1.73 sq M predicted among blacks MDRD (S/P/Bld) [Vol rate/Area] mL/min/{1.73_m2} Normal >60 [facility] Comment on above: Order Comment: If no t done in ED No: Do not add to previous draw Performed By: #### 8 5123, 63942 #### [facility] [address] [place] [address], [place] GFR/1.73 sq M predicted among non-blacks MDRD (S/P/Bld) [Vol rate/Area] mL/min/{1.73_m2} Normal >60 [facility] Comment on above: Order Comment: If no t done in ED No: Do not add to previous draw Performed By: #### 8 5123, 97352 #### [facility] [address] [place] [address], [place] Glucose [Mass/Vol] 147 mg/dL High 70-100 [facility] Comment on above: Order Comment: If no t done in ED No: Do not add to previous draw Performed By: #### 8 5123, 57768 #### [facility] [address] [place] [address], [place] Potassium [Moles/Vol] 3.9 mmol/L Normal 3.5-5.1 [facility] Comment on above: Order Comment: If no t done in ED No: Do not add to previous draw Performed By: #### 8 5123, 79930 #### [facility] [address] [place] [address], [place] Sodium [Moles/Vol] 142 mmol/L Normal 136-145 [facility] Comment on above: Order Comment: If no t done in ED No: Do not add to previous draw Performed By: #### 8 5123, 77993 #### [facility] [address] [place] [address], [place] Urea nitrogen [Mass/Vol] 19 mg/dL Normal 7-25 [facility] Comment on above: Order Comment: If no t done in ED No: Do not add to previous draw Performed By: #### 8 5123, 95321 #### [facility] [address] [place] [address], [place] Calcium [Mass/Vol] 9.5 mg/dL Normal 8.6-10.3 [facility] Comment on above: Order Comment: If no t done in ED No: Do not add to previous draw Performed By: #### 0 0121, 16600, 14391, 25696, 37975 #### [facility] [address] [place] [address], [place] Chloride [Moles/Vol] 105 mmol/L Normal 98-107 [facility] Comment on above: Order Comment: If no t done in ED No: Do not add to previous draw Performed By: #### 0 0121, 95179, 97710, 47991, 12765 #### [facility] [address] [place] [address], [place] CO2 [Moles/Vol] 24 mmol/L Normal 21-31 [facility] Comment on above: Order Comment: If no t done in ED No: Do not add to previous draw Performed By: #### 0 0121, 59857, 68249, 75626, 47995 #### [facility] [address] [place] [address], [place] Creatinine [Mass/Vol] 1.11 mg/dL Normal 0.70-1.30 [facility] Comment on above: Order Comment: If no t done in ED No: Do not add to previous draw Performed By: #### 0 0121, 38159, 68834, 40419, 84921 #### [facility] [address] [place] [address], [place] GFR/1.73 sq M predicted among blacks MDRD (S/P/Bld) [Vol rate/Area] mL/min/{1.73_m2} Normal >60 [facility] Comment on above: Order Comment: If no t done in ED No: Do not add to previous draw Performed By: #### 0 0121, 70694, 94658, 15489, 30513 #### [facility] [address] [place] [address], [place] GFR/1.73 sq M predicted among non-blacks MDRD (S/P/Bld) [Vol rate/Area] mL/min/{1.73_m2} Normal >60 [facility] Comment on above: Order Comment: If no t done in ED No: Do not add to previous draw Performed By: #### 0 0121, 49504, 87688, 50988, 17284 #### [facility] [address] [place] [address], [place] Glucose [Mass/Vol] 89 mg/dL Normal 70-100 [facility] Comment on above: Order Comment: If no t done in ED No: Do not add to previous draw Performed By: #### 0 0121, 76284, 55566, 73760, 09584 #### [facility] [address] [place] [address], [place] Potassium [Moles/Vol] 4.2 mmol/L Normal 3.5-5.1 [facility] Comment on above: Order Comment: If no t done in ED No: Do not add to previous draw Performed By: #### 0 0121, 67778, 08940, 00646, 50962 #### [facility] [address] [place] [address], [place] Sodium [Moles/Vol] 135 mmol/L Low 136-145 [facility] Comment on above: Order Comment: If no t done in ED No: Do not add to previous draw Performed By: #### 0 0121, 03411, 10944, 02265, 14927 #### [facility] [address] [place] [address], [facility] Urea nitrogen [Mass/Vol] 17 mg/dL Normal 7-25 [facility] Comment on above: Order Comment: If no t done in ED No: Do not add to previous draw Performed By: #### 0 0121, 54404, 43101, 14713, 60082 #### [facility] [address] [place] [address], [facility] CBC COMPLETE BLOOD COUNTon 03-19-2019 Erythrocyte distribution width (RBC) [Ratio] 13.0 % Normal 11.5-15.0 [facility] Comment on above: Order Comment: No: D o not add to previous draw Performed By: #### 5 7307 #### [facility] [address] [place] [address], [facility] Hematocrit (Bld) [Volume fraction] 42.7 % Normal 39.0-50.0 [facility] Comment on above: Order Comment: No: D o not add to previous draw Performed By: #### 5 7307 #### [facility] [address] [place] [address], [facility] Hemoglobin (Bld) [Mass/Vol] 14.3 g/dL Normal 13.0-17.0 [facility] Comment on above: Order Comment: No: D o not add to previous draw Performed By: #### 5 7307 #### [facility] [address] [place] [address], [place] MCH (RBC) [Entitic mass] 29.4 pg Normal 27.0-33.0 [facility] Comment on above: Order Comment: No: D o not add to previous draw Performed By: #### 5 7307 #### [facility] [address] [place] MCHC (RBC) [Mass/Vol] 33.5 g/dL Normal 32.0-35.0 [facility] Comment on above: Order Comment: No: D o not add to previous draw Performed By: #### 5 7307 #### [facility] [address] [place] [id number], [facility] MCV (RBC) [Entitic vol] 87.9 fL Normal 82.0-98.0 [facility] Comment on above: Order Comment: No: D o not add to previous draw Performed By: #### 5 7307 #### [facility] [address] [place] [address], [facility] Nucleated RBC/100 WBC (Bld) [Ratio] 0 % Normal 0-0 [facility] Comment on above: Order Comment: No: D o not add to previous draw Performed By: #### 5 7307 #### [facility] [address] [place] [address], [facility] PLAT CNT 179 10*3/uL Normal 150-400 [facility] Comment on above: Order Comment: No: D o not add to previous draw Performed By: #### 5 7307 #### [facility] [address] [place] [address], [facility] RBC (Bld) [#/Vol] 4.86 10*6/uL Normal 4.20-5.70 [facility] Comment on above: Order Comment: No: D o not add to previous draw Performed By: #### 5 7307 #### [facility] [address] [place] [id number], [place] WBC (Bld) [#/Vol] 26.36 10*3/uL High 4.00-10.60 [facility] Comment on above: Order Comment: No: D o not add to previous draw Performed By: #### 5 7307 #### [facility] [address] [place] [id number], [place] Erythrocyte distribution width (RBC) [Ratio] 13.0 % Normal 11.5-15.0 [facility] Comment on above: Order Comment: R/O P ulmonary Edema Performed By: #### 5 0608 ####[facility] Hematocrit (Bld) [Volume fraction] 47.1 % Normal 39.0-50.0 [facility] Comment on above: Order Comment: R/O P ulmonary Edema Performed By: #### 5 0608 ####[facility] Hemoglobin (Bld) [Mass/Vol] 15.0 g/dL Normal 13.0-17.0 [facility] Comment on above: Order Comment: R/O P ulmonary Edema Performed By: #### 5 0608 ####[facility] MCH (RBC) [Entitic mass] 29.4 pg Normal 27.0-33.0 [facility] Comment on above: Order Comment: R/O P ulmonary Edema Performed By: #### 5 0608 ####[facility] MCHC (RBC) [Mass/Vol] 31.8 g/dL Low 32.0-35.0 [facility] Comment on above: Order Comment: R/O P ulmonary Edema Performed By: #### 5 0608 ####[facility] MCV (RBC) [Entitic vol] 92.4 fL Normal 82.0-98.0 [facility] Comment on above: Order Comment: R/O P ulmonary Edema Performed By: #### 5 0608 ####[facility] [place] [address] Nucleated RBC/100 WBC (Bld) [Ratio] 0 % Normal 0-0 [facility] Comment on above: Order Comment: R/O P ulmonary Edema Performed By: #### 5 0608 ####[facility] [place] [address], [facility] PLAT CNT 188 10*3/uL Normal 150-400 [facility] Comment on above: Order Comment: R/O P ulmonary Edema Performed By: #### 5 0608 ####[facility] [place] [address], [facility] RBC (Bld) [#/Vol] 5.10 10*6/uL Normal 4.20-5.70 [facility] Comment on above: Order Comment: R/O P ulmonary Edema Performed By: #### 5 0608 ####[facility] [place] [address], [facility] WBC (Bld) [#/Vol] 31.20 10*3/uL High 4.00-10.60 [facility] Comment on above: Order Comment: R/O P ulmonary Edema Performed By: #### 5 0608 ####[facility] [place] [address], [facility] Erythrocyte distribution width (RBC) [Ratio] 13.0 % Normal 11.5-15.0 [facility] Comment on above: Order Comment: If no t done in ED No: Do not add to previous draw Performed By: #### 8 5991, 18820 #### [facility] [address] [place] [address], [place] Hematocrit (Bld) [Volume fraction] 44.2 % Normal 39.0-50.0 [facility] Comment on above: Order Comment: If no t done in ED No: Do not add to previous draw Performed By: #### 8 7553, 29737 #### [facility] [address] [place] [address], [facility] Hemoglobin (Bld) [Mass/Vol] 14.4 g/dL Normal 13.0-17.0 [facility] Comment on above: Order Comment: If no t done in ED No: Do not add to previous draw Performed By: #### 8 5123, 71796 #### [facility] [address] [place] [address], [facility] MCH (RBC) [Entitic mass] 28.8 pg Normal 27.0-33.0 [facility] Comment on above: Order Comment: If no t done in ED No: Do not add to previous draw Performed By: #### 8 5123, 79981 #### [facility] [address] [place] [address], [facility] MCHC (RBC) [Mass/Vol] 32.6 g/dL Normal 32.0-35.0 [facility] Comment on above: Order Comment: If no t done in ED No: Do not add to previous draw Performed By: #### 8 5123, 22927 #### [facility] [address] [place] [address], [facility] MCV (RBC) [Entitic vol] 88.4 fL Normal 82.0-98.0 [facility] Comment on above: Order Comment: If no t done in ED No: Do not add to previous draw Performed By: #### 8 5123, 69901 #### [facility] [address] [place] [id number], [facility] Nucleated RBC/100 WBC (Bld) [Ratio] 0 % Normal 0-0 [facility] Comment on above: Order Comment: If no t done in ED No: Do not add to previous draw Performed By: #### 8 5123, 97288 #### [facility] [address] [place] [address], [place] PLAT CNT 166 10*3/uL Normal 150-400 [facility] Comment on above: Order Comment: If no t done in ED No: Do not add to previous draw Performed By: #### 8 5123, 79530 #### [facility] [address] [place] [address], [place] RBC (Bld) [#/Vol] 5.00 10*6/uL Normal 4.20-5.70 [facility] Comment on above: Order Comment: If no t done in ED No: Do not add to previous draw Performed By: #### 8 5123, 62259 #### [facility] [address] [place] [address], [place] WBC (Bld) [#/Vol] 33.13 10*3/uL High 4.00-10.60 [facility] Comment on above: Order Comment: If no t done in ED No: Do not add to previous draw Performed By: #### 8 5123, 43653 #### [facility] [address] [place] [address], [facility] Erythrocyte distribution width (RBC) [Ratio] 13.0 % Normal 11.5-15.0 [facility] Comment on above: Order Comment: If no t done in ED No: Do not add to previous draw Performed By: #### 0 0121, 08200, 41448, 29719, 86493 #### [facility] [address] [place] [address], [place] Hematocrit (Bld) [Volume fraction] 55.7 % High 39.0-50.0 [facility] Comment on above: Order Comment: If no t done in ED No: Do not add to previous draw Performed By: #### 0 0121, 28866, 67208, 76714, 43089 #### [facility] [address] [place] [address], [place] Hemoglobin (Bld) [Mass/Vol] 18.2 g/dL High 13.0-17.0 [facility] Comment on above: Order Comment: If no t done in ED No: Do not add to previous draw Performed By: #### 0 0121, 22373, 80868, 33465, 83072 #### [facility] [address] MCH (RBC) [Entitic mass] 28.6 pg Normal 27.0-33.0 [facility] Comment on above: Order Comment: If no t done in ED No: Do not add to previous draw Performed By: #### 0 0121, 66749, 39925, 12128, 95991 #### [facility] [address] MCHC (RBC) [Mass/Vol] 32.7 g/dL Normal 32.0-35.0 [facility] Comment on above: Order Comment: If no t done in ED No: Do not add to previous draw Performed By: #### 0 0121, 95751, 21206, 34034, 15692 #### [facility] [address] [facility] [address] MCV (RBC) [Entitic vol] 87.4 fL Normal 82.0-98.0 [facility] Comment on above: Order Comment: If no t done in ED No: Do not add to previous draw Performed By: #### 0 0121, 53924, 69525, 04218, 73708 #### [facility] [address] [facility] [address] Nucleated RBC/100 WBC (Bld) [Ratio] 0 % Normal 0-0 [facility] Comment on above: Order Comment: If no t done in ED No: Do not add to previous draw Performed By: #### 0 0121, 80035, 02773, 86299, 96205 #### [facility] [address] [facility] [place] [address], [facility] PLAT CNT 288 10*3/uL Normal 150-400 [facility] Comment on above: Order Comment: If no t done in ED No: Do not add to previous draw Performed By: #### 0 0121, 14663, 89596, 05127, 20374 #### [facility] [address] [place] [address], [facility] RBC (Bld) [#/Vol] 6.37 10*6/uL High 4.20-5.70 [facility] Comment on above: Order Comment: If no t done in ED No: Do not add to previous draw Performed By: #### 0 0121, 40749, 39851, 13543, 44543 #### [facility] [address] [place] [address], [facility] WBC (Bld) [#/Vol] 11.26 10*3/uL High 4.00-10.60 [facility] Comment on above: Order Comment: If no t done in ED No: Do not add to previous draw Performed By: #### 0 0121, 13062, 54320, 33378, 87869 #### [facility] [address] [place] [address], [facility] COMP METABOLIC PANELon 03-19 Albumin [Mass/Vol] 3.8 g/dL Normal 3.5-5.7 [facility] Comment on above: Order Comment: R/O P ulmonary Edema Performed By: #### 0 0121, 18095, 75286 ####[facility] [facility] [place] [address], [facility] ALKALINE PHOSPH 30 IU/L Low 34-104 [facility] Comment on above: Order Comment: R/O P ulmonary Edema Performed By: #### 0 0121, 44009, 15579 ####[facility] [facility] [place] [address], [facility] ALT [Catalytic activity/Vol] 37 U/L Normal 7-52 [facility] Comment on above: Order Comment: R/O P ulmonary Edema Performed By: #### 0 0121, 26435, 94376 ####[facility] [place] [address], [facility] AST [Catalytic activity/Vol] 154 U/L High 13-39 [facility] Comment on above: Order Comment: R/O P ulmonary Edema Performed By: #### 0 0121, 93975, 05485 ####[facility] [facility] [place] [address], [facility] Bilirubin [Mass/Vol] 1.9 mg/dL High 0.3-1.0 [facility] Comment on above: Order Comment: R/O P ulmonary Edema Performed By: #### 0 0121, 52915, 92374 ####[facility] [place] [address], [facility] Calcium [Mass/Vol] 8.9 mg/dL Normal 8.6-10.3 [facility] Comment on above: Order Comment: R/O P ulmonary Edema Performed By: #### 0 0121, 30642, 70330 ####[facility] [facility] [place] [address], [facility] Chloride [Moles/Vol] 113 mmol/L High 98-107 [facility] Comment on above: Order Comment: R/O P ulmonary Edema Performed By: #### 0 0121, 87960, 04302 ####[facility] [facility] [place] [address], [facility] CO2 [Moles/Vol] 13 mmol/L Critically low 21-31 [facility] Comment on above: Order Comment: R/O P ulmonary Edema Result Comment: M-CR ITICAL RESULT(S) REVIEWED, CALLED TO AND READ BACK BY PEDRO CEDENO @1940 03.19.19 Performed By: #### 0 0121, 25994, 13293 ####[facility] [facility] [place] [address], [facility] Creatinine [Mass/Vol] 1.11 mg/dL Normal 0.70-1.30 [facility] Comment on above: Order Comment: R/O P ulmonary Edema Performed By: #### 0 0121, 01835, 95351 ####[facility] [place] [address], [facility] GFR/1.73 sq M predicted among blacks MDRD (S/P/Bld) [Vol rate/Area] mL/min/{1.73_m2} Normal >60 [facility] Comment on above: Order Comment: R/O P ulmonary Edema Performed By: #### 0 0121, 07755, 60091 ####[facility] [place] [address], [facility] GFR/1.73 sq M predicted among non-blacks MDRD (S/P/Bld) [Vol rate/Area] mL/min/{1.73_m2} Normal >60 [facility] Comment on above: Order Comment: R/O P ulmonary Edema Performed By: #### 0 0121, 03264, 80192 ####[facility] [place] [address], [facility] Glucose [Mass/Vol] 132 mg/dL High 70-100 [facility] Comment on above: Order Comment: R/O P ulmonary Edema Performed By: #### 0 0121, 79986, 63522 ####[facility] [facility] [place] [address], [facility] Potassium [Moles/Vol] 4.4 mmol/L Normal 3.5-5.1 [facility] Comment on above: Order Comment: R/O P ulmonary Edema Performed By: #### 0 0121, 54657, 97528 ####[facility] [place] [address], [facility] Protein [Mass/Vol] 5.6 g/dL Low 6.0-8.3 [facility] Comment on above: Order Comment: R/O P ulmonary Edema Performed By: #### 0 0121, 93491, 37447 ####[facility] [place] [address], [place] Sodium [Moles/Vol] 140 mmol/L Normal 136-145 [facility] Comment on above: Order Comment: R/O P ulmonary Edema Performed By: #### 0 0121, 52436, 50585 ####[facility] [place] [address], [place] Urea nitrogen [Mass/Vol] 18 mg/dL Normal 7-25 [facility] Comment on above: Order Comment: R/O P ulmonary Edema Performed By: #### 0 0121, 72491, 59357 ####[facility] [place] [address], [place] COOXIMETRYon 03-19-2019 COHB 2 % Normal [facility] Comment on above: Order Comment: No: D o not add to previous draw Performed By: #### 5 7307 #### [facility] [address] [place] [address], [place] METHB 1 % Normal [facility] Comment on above: Order Comment: No: D o not add to previous draw Performed By: #### 5 7307 #### [facility] [address] [place] [address], [place] Oxygen saturation in Blood 66.9 % Normal 65.0-75.0 [facility] Comment on above: Order Comment: No: D o not add to previous draw Performed By: #### 5 7307 #### [facility] [address] [place] [address], [place] THB 13.1 g/dL Normal [facility] Comment on above: Order Comment: No: D o not add to previous draw Performed By: #### 5 7307 #### [facility] [address] [place] [address], [place] COHB 2 % Normal [facility] Comment on above: Performed By: #### 7 0207 ####[facility] [place] [address], [place] METHB 1 % Normal [facility] Comment on above: Performed By: #### 7 0207 ####[facility] [place] [address], [facility] Oxygen saturation in Blood 59.2 % Low 65.0-75.0 [facility] Comment on above: Performed By: #### 7 0207 ####[facility] [place] [address], [facility] THB 14.0 g/dL Normal [facility] Comment on above: Performed By: #### 7 0207 ####[facility] [facility] [place] [address], [facility] LACTATE BLOODon 03-19-2019 Lactate [Moles/Vol] 2.6 mmol/L Critically high 0.5-2.2 [facility] Comment on above: Order Comment: No: D o not add to previous draw Result Comment: M-CR ITICAL RESULT(S) REVIEWED, CALLED TO AND READ BACK BY PEDRO MONTANO @213 03.19.19 Performed By: #### 5 7307 #### [facility] [address] [place] [address], [facility] MAGNESIUM BLOODon 03-19-2019 Magnesium [Mass/Vol] 2.4 mg/dL Normal 1.9-2.7 [facility] Comment on above: Order Comment: No: D o not add to previous draw Performed By: #### 5 7307 #### [facility] [address] [place] [address], [facility] Magnesium [Mass/Vol] 2.7 mg/dL Normal 1.9-2.7 [facility] Comment on above: Order Comment: R/O P ulmonary Edema Performed By: #### 0 0121, 20764, 73869 ####[facility] [place] [address], [facility] Magnesium [Mass/Vol] 2.9 mg/dL High 1.9-2.7 [facility] Comment on above: Performed By: #### 8 5123, 13665 #### [facility] [address] [place] [address], [facility] PERFUSION BLOOD PANELon 03-01 BASE EXCESS -4.0 mmol/L Low -2.0-3.0 [facility] Comment on above: Performed By: #### 8 5123, 71518 #### [facility] [address] [place] [address], [place] Glucose [Mass/Vol] 143 mg/dL High 70-105 [facility] Comment on above: Performed By: #### 8 5123, 74161 #### [facility] [address] [place] [address], [facility] Hematocrit (Bld) [Volume fraction] 39 % Normal 38-51 [facility] Comment on above: Performed By: #### 8 512, 87859 #### [facility] [address] [place] [address], [place] Hemoglobin (Bld) [Mass/Vol] 13.3 g/dL Normal 12.0-17.0 [facility] Comment on above: Performed By: #### 8 5123, 40727 #### [facility] [address] [place] [address], [place] IONIZED CALCIUM 1.58 mmol/L Critically high 1.12-1.32 [facility] Comment on above: Performed By: #### 8 5123, 50685 #### [facility] [address] [place] [address], [place] Oxygen (Bld) [Partial pressure] 59.0 mm[Hg] Low 80.0-105.0 [facility] Comment on above: Performed By: #### 8 5123, 47242 #### [facility] [address] [place] [address], [place] PCO2 35.4 mmHg Normal 35.0-45.0 [facility] Comment on above: Performed By: #### 8 5123, 23386 #### [facility] [address] [place] [address], [facility] pH (Bld) 7.37 [pH] Normal 7.35-7.45 [facility] Comment on above: Performed By: #### 8 5123, 84535 #### [facility] [address] [place] [address], [place] Potassium [Moles/Vol] 3.7 mmol/L Normal 3.5-4.9 [facility] Comment on above: Performed By: #### 8 5123, 63663 #### [facility] [address] [place] [address], [place] Sodium [Moles/Vol] 144 mmol/L Normal 138-146 [facility] Comment on above: Performed By: #### 8 512, 56974 #### [facility] [address] [place] [address], [place] BASE EXCESS -5.0 mmol/L Low -2.0-3.0 [facility] Comment on above: Performed By: #### 8 5123, 26361 #### [facility] [address] [place] [address], [place] Glucose [Mass/Vol] 158 mg/dL High 70-105 [facility] Comment on above: Performed By: #### 8 5123, 35146 #### [facility] [address] [place] [address], [place] Hematocrit (Bld) [Volume fraction] 41 % Normal 38-51 [facility] Comment on above: Performed By: #### 8 5123, 84063 #### [facility] [address] [place] [address], [place] Hemoglobin (Bld) [Mass/Vol] 13.9 g/dL Normal 12.0-17.0 [facility] Comment on above: Performed By: #### 8 5123, 59351 #### [facility] [address] [place] [address], [facility] IONIZED CALCIUM 1.34 mmol/L High 1.12-1.32 [facility] Comment on above: Performed By: #### 8 512, 06181 #### [facility] [address] [place] [address], [facility] Oxygen (Bld) [Partial pressure] 51.0 mm[Hg] Low 80.0-105.0 [facility] Comment on above: Performed By: #### 8 512, 62293 #### [facility] [address] [place] [address], [facility] PCO2 34.5 mmHg Low 35.0-45.0 [facility] Comment on above: Performed By: #### 8 512, 16125 #### [facility] [address] [place] [address], [facility] pH (Bld) 7.36 [pH] Normal 7.35-7.45 [facility] Comment on above: Performed By: #### 8 512, 26164 #### [facility] [address] [place] [address], [facility] Potassium [Moles/Vol] 4.2 mmol/L Normal 3.5-4.9 [facility] Comment on above: Performed By: #### 8 512, 75367 #### [facility] [address] [place] [address], [place] Sodium [Moles/Vol] 142 mmol/L Normal 138-146 [facility] Comment on above: Performed By: #### 8 512, [id number] #### [facility] [address] [place] [address], [place] BASE EXCESS -1.0 mmol/L Normal -2.0-3.0 [facility] Comment on above: Performed By: #### [id number], [id number] #### [facility] [address] [place] [address], [place] Glucose [Mass/Vol] 163 mg/dL High 70-105 [facility] Comment on above: Performed By: #### 8 [id number], [id number] #### [facility] [address] [place] [address], [place] Hematocrit (Bld) [Volume fraction] 42 % Normal 38-51 [facility] Comment on above: Performed By: #### [id number], [id number] #### [facility] [address] [place] [address], [place] Hemoglobin (Bld) [Mass/Vol] 14.3 g/dL Normal 12.0-17.0 [facility] Comment on above: Performed By: #### 8 [id number], [id number] #### [facility] [address] [place] [address], [place] IONIZED CALCIUM 1.05 mmol/L Low 1.12-1.32 [facility] Comment on above: Performed By: #### 8 5123, 67611 #### [facility] [address] [place] [address], [place] Oxygen (Bld) [Partial pressure] 368.0 mm[Hg] High 80.0-105.0 [facility] Comment on above: Performed By: #### 8 5123, 35253 #### [facility] [address] [place] [address], [place] PCO2 39.7 mmHg Normal 35.0-45.0 [facility] Comment on above: Performed By: #### 8 5123, 04915 #### [facility] [address] [place] [address], [place] pH (Bld) 7.39 [pH] Normal 7.35-7.45 [facility] Comment on above: Performed By: #### 8 5123, 33418 #### [facility] [address] [place] [address], [facility] Potassium [Moles/Vol] 3.9 mmol/L Normal 3.5-4.9 [facility] Comment on above: Performed By: #### 8 512, 70358 #### [facility] [address] [place] [id number], [facility] Sodium [Moles/Vol] 145 mmol/L Normal 138-146 [facility] Comment on above: Performed By: #### 8 512, 30289 #### [facility] [address] [place] [id number], [facility] BASE EXCESS -4.0 mmol/L Low -2.0-3.0 [facility] Comment on above: Performed By: #### 8 512, 09746 #### [facility] [address] [place] [id number], [facility] Glucose [Mass/Vol] 169 mg/dL High 70-105 [facility] Comment on above: Performed By: #### 8 512, 00398 #### [facility] [address] [place] [id number], [facility] Hematocrit (Bld) [Volume fraction] 40 % Normal 38-51 [facility] Comment on above: Performed By: #### 8 5123, 07273 #### [facility] [address] [place] [id number], [facility] Hemoglobin (Bld) [Mass/Vol] 13.6 g/dL Normal 12.0-17.0 [facility] Comment on above: Performed By: #### 8 5123, 57287 #### [facility] [address] [place] [id number], [facility] IONIZED CALCIUM 1.37 mmol/L High 1.12-1.32 [facility] Comment on above: Performed By: #### 8 5123, 16156 #### [facility] [address] [place] [address], [facility] Oxygen (Bld) [Partial pressure] 301.0 mm[Hg] High 80.0-105.0 [facility] Comment on above: Performed By: #### 8 5123, 11373 #### [facility] [address] [place] [address], [place] PCO2 36.1 mmHg Normal 35.0-45.0 [facility] Comment on above: Performed By: #### 8 512, 87621 #### [facility] [address] [place] [address], [place] pH (Bld) 7.38 [pH] Normal 7.35-7.45 [facility] Comment on above: Performed By: #### 8 512, 94254 #### [facility] [address] [place] [address], [facility] Potassium [Moles/Vol] 4.9 mmol/L Normal 3.5-4.9 [facility] Comment on above: Performed By: #### 8 512, 15328 #### [facility] [address] [place] [address], [place] Sodium [Moles/Vol] 137 mmol/L Low 138-146 [facility] Comment on above: Performed By: #### 8 5123, 19125 #### [facility] [address] [place] [address], [place] BASE EXCESS -3.0 mmol/L Low -2.0-3.0 [facility] Comment on above: Performed By: #### 8 5123, 82752 #### [facility] [address] [place] [address], [place] Glucose [Mass/Vol] 174 mg/dL High 70-105 [facility] Comment on above: Performed By: #### 8 512, 82147 #### [facility] [address] [place] [address], [facility] Hematocrit (Bld) [Volume fraction] 45 % Normal 38-51 [facility] Comment on above: Performed By: #### 8 5123, 78159 #### [facility] [address] [place] [address], [facility] Hemoglobin (Bld) [Mass/Vol] 15.3 g/dL Normal 12.0-17.0 [facility] Comment on above: Performed By: #### 8 512, 45266 #### [facility] [address] [place] [address], [facility] IONIZED CALCIUM 1.06 mmol/L Low 1.12-1.32 [facility] Comment on above: Performed By: #### 8 512, 65811 #### [facility] [address] [place] [address], [facility] Oxygen (Bld) [Partial pressure] 404.0 mm[Hg] High 80.0-105.0 [facility] Comment on above: Performed By: #### 8 512, 87726 #### [facility] [address] [place] [address], [facility] PCO2 42.4 mmHg Normal 35.0-45.0 [facility] Comment on above: Performed By: #### 8 5123, 18880 #### [facility] [address] [place] [address], [facility] pH (Bld) 7.35 [pH] Normal 7.35-7.45 [facility] Comment on above: Performed By: #### 8 5123, 39163 #### [facility] [address] [place] [address], [facility] Potassium [Moles/Vol] 4.7 mmol/L Normal 3.5-4.9 [facility] Comment on above: Performed By: #### 8 512, 95340 #### [facility] [address] [place] [address], [facility] Sodium [Moles/Vol] 141 mmol/L Normal 138-146 [facility] Comment on above: Performed By: #### 8 512, 39255 #### [facility] [address] [place] [address], [facility] BASE EXCESS -2.0 mmol/L Normal -2.0-3.0 [facility] Comment on above: Performed By: #### 8 512, 25548 #### [facility] [address] [place] [address], [facility] Glucose [Mass/Vol] 184 mg/dL High 70-105 [facility] Comment on above: Performed By: #### 8 512, 75027 #### [facility] [address] [place] [id number], [facility] Hematocrit (Bld) [Volume fraction] 46 % Normal 38-51 [facility] Comment on above: Performed By: #### 8 512, 54599 #### [facility] [address] [place] [address], [facility] Hemoglobin (Bld) [Mass/Vol] 15.6 g/dL Normal 12.0-17.0 [facility] Comment on above: Performed By: #### 8 512, 97298 #### [facility] [address] [place] [id number], [facility] IONIZED CALCIUM 1.06 mmol/L Low 1.12-1.32 [facility] Comment on above: Performed By: #### 8 5123, 92149 #### [facility] [address] [place] [id number], [facility] Oxygen (Bld) [Partial pressure] 374.0 mm[Hg] High 80.0-105.0 [facility] Comment on above: Performed By: #### 8 512, 86935 #### [facility] [address] [place] [address], [facility] PCO2 43.3 mmHg Normal 35.0-45.0 [facility] Comment on above: Performed By: #### 8 5123, 69214 #### [facility] [address] [place] [address], [facility] pH (Bld) 7.34 [pH] Low 7.35-7.45 [facility] Comment on above: Performed By: #### 8 512, 82835 #### [facility] [address] [place] [address], [place] Potassium [Moles/Vol] 4.8 mmol/L Normal 3.5-4.9 [facility] Comment on above: Performed By: #### 8 512, 34058 #### [facility] [address] [place] [address], [place] Sodium [Moles/Vol] 139 mmol/L Normal 138-146 [facility] Comment on above: Performed By: #### 8 5123, 56636 #### [facility] [address] [place] [address], [facility] BASE EXCESS -2.0 mmol/L Normal -2.0-3.0 [facility] Comment on above: Performed By: #### 8 5123, 28467 #### [facility] [address] [place] [address], [place] Glucose [Mass/Vol] 176 mg/dL High 70-105 [facility] Comment on above: Performed By: #### 8 5123, 56250 #### [facility] [address] [place] [address], [place] Hematocrit (Bld) [Volume fraction] 44 % Normal 38-51 [facility] Comment on above: Performed By: #### 8 5123, 37376 #### [facility] [address] [place] [address], [facility] Hemoglobin (Bld) [Mass/Vol] 15.0 g/dL Normal 12.0-17.0 [facility] Comment on above: Performed By: #### 8 5123, 30534 #### [facility] [address] [place] [address], [facility] IONIZED CALCIUM 1.07 mmol/L Low 1.12-1.32 [facility] Comment on above: Performed By: #### 8 5123, 28887 #### [facility] [address] [place] [address], [facility] Oxygen (Bld) [Partial pressure] 284.0 mm[Hg] High 80.0-105.0 [facility] Comment on above: Performed By: #### 8 5123, 80100 #### [facility] [address] [place] [address], [facility] PCO2 47.5 mmHg High 35.0-45.0 [facility] Comment on above: Performed By: #### 8 5123, 40767 #### [facility] [address] [place] [address], [facility] pH (Bld) 7.32 [pH] Low 7.35-7.45 [facility] Comment on above: Performed By: #### 8 5123, 60292 #### [facility] [address] [place] [address], [facility] Potassium [Moles/Vol] 4.8 mmol/L Normal 3.5-4.9 [facility] Comment on above: Performed By: #### 8 5123, 17574 #### [facility] [address] [place] [address], [facility] Sodium [Moles/Vol] 139 mmol/L Normal 138-146 [facility] Comment on above: Performed By: #### 8 5123, 40290 #### [facility] [address] [place] [address], [facility] BASE EXCESS -2.0 mmol/L Normal -2.0-3.0 [facility] Comment on above: Performed By: #### 0 0121, 57905, 19024, 99301, 11648 #### [facility] [address] [place] [address], [place] Glucose [Mass/Vol] 166 mg/dL High 70-105 [facility] Comment on above: Performed By: #### 0 0121, 42376, 23250, 86567, 16047 #### [facility] [address] [place] [address], [facility] Hematocrit (Bld) [Volume fraction] 45 % Normal 38-51 [facility] Comment on above: Performed By: #### 0 0121, 55221, 24820, 24718, 71446 #### [facility] [address] [place] [address], [facility] Hemoglobin (Bld) [Mass/Vol] 15.3 g/dL Normal 12.0-17.0 [facility] Comment on above: Performed By: #### 0 0121, 54397, 34948, 64800, 23810 #### [facility] [address] [place] [address], [facility] IONIZED CALCIUM 1.09 mmol/L Low 1.12-1.32 [facility] Comment on above: Performed By: #### 0 0121, 21942, 09953, 38616, 66093 #### [facility] [address] [place] [address], [place] Oxygen (Bld) [Partial pressure] 313.0 mm[Hg] High 80.0-105.0 [facility] Comment on above: Performed By: #### 0 0121, 12046, 75135, 53605, 05517 #### [facility] [address] [place] [address], [place] PCO2 47.7 mmHg High 35.0-45.0 [facility] Comment on above: Performed By: #### 0 0121, 40885, 09084, 73751, 33626 #### [facility] [address] [place] [address], [facility] pH (Bld) 7.32 [pH] Low 7.35-7.45 [facility] Comment on above: Performed By: #### 0 0121, 24282, 15924, 91277, 25251 #### [facility] [address] [place] [address], [facility] Potassium [Moles/Vol] 4.4 mmol/L Normal 3.5-4.9 [facility] Comment on above: Performed By: #### 0 0121, 07266, 86081, 54148, 57543 #### [facility] [address] [place] [address], [facility] Sodium [Moles/Vol] 140 mmol/L Normal 138-146 [facility] Comment on above: Performed By: #### 0 0121, 88617, 72227, 51464, 30410 #### [facility] [address] [place] [address], [facility] BASE EXCESS -1.0 mmol/L Normal -2.0-3.0 [facility] Comment on above: Performed By: #### 0 0121, 56129, 88776, 63781, 23701 #### [facility] [address] [place] [address], [facility] Glucose [Mass/Vol] 146 mg/dL High 70-105 [facility] Comment on above: Performed By: #### 0 0121, 84225, 13869, 18777, 71773 #### [facility] [address] [place] [address], [facility] Hematocrit (Bld) [Volume fraction] 45 % Normal 38-51 [facility] Comment on above: Performed By: #### 0 0121, 68280, 46162, 58888, 32984 #### [facility] [address] [place] [address], [facility] Hemoglobin (Bld) [Mass/Vol] 15.3 g/dL Normal 12.0-17.0 [facility] Comment on above: Performed By: #### 0 0121, 49823, 76622, 89198, 21370 #### [facility] [address] [place] [address], [facility] IONIZED CALCIUM 1.06 mmol/L Low 1.12-1.32 [facility] Comment on above: Performed By: #### 0 0121, 20901, 59818, 29434, 97915 #### [facility] [address] [place] [address], [facility] Oxygen (Bld) [Partial pressure] 319.0 mm[Hg] High 80.0-105.0 [facility] Comment on above: Performed By: #### 0 0121, 07608, 17012, 81841, 29869 #### [facility] [address] [place] [address], [facility] PCO2 50.9 mmHg High 35.0-45.0 [facility] Comment on above: Performed By: #### 0 0121, 07206, 08504, 75859, 12186 #### [facility] [address] [place] [address], [facility] pH (Bld) 7.32 [pH] Low 7.35-7.45 [facility] Comment on above: Performed By: #### 0 0121, 57592, 06149, 42681, 93699 #### [facility] [address] [place] [address], [facility] Potassium [Moles/Vol] 4.4 mmol/L Normal 3.5-4.9 [facility] Comment on above: Performed By: #### 0 0121, 69070, 95833, 58327, 07369 #### [facility] [address] [place] [address], [facility] Sodium [Moles/Vol] 138 mmol/L Normal 138-146 [facility] Comment on above: Performed By: #### 0 0121, 10928, 14160, 65864, 61516 #### [facility] [address] [place] [address], [place] BASE EXCESS 0.0 mmol/L Normal -2.0-3.0 [facility] Comment on above: Performed By: #### 0 0121, 78720, 62472, 11157, 43746 #### [facility] [address] [place] [address], [place] Glucose [Mass/Vol] 116 mg/dL High 70-105 [facility] Comment on above: Performed By: #### 0 0121, 40691, 08680, 83179, 67607 #### [facility] [address] [place] [address], [place] Hematocrit (Bld) [Volume fraction] 43 % Normal 38-51 [facility] Comment on above: Performed By: #### 0 0121, 42493, 63645, 18775, 37044 #### [facility] [address] [place] [address], [place] Hemoglobin (Bld) [Mass/Vol] 14.6 g/dL Normal 12.0-17.0 [facility] Comment on above: Performed By: #### 0 0121, 84718, 88896, 62548, 85639 #### [facility] [address] [place] [address], [place] IONIZED CALCIUM 1.05 mmol/L Low 1.12-1.32 [facility] Comment on above: Performed By: #### 0 0121, 90889, 91193, 43774, 17499 #### [facility] [address] [place] [address], [facility] Oxygen (Bld) [Partial pressure] 409.0 mm[Hg] High 80.0-105.0 [facility] Comment on above: Performed By: #### 0 0121, 35294, 86722, 74772, 77438 #### [facility] [address] [place] [address], [place] PCO2 44.9 mmHg Normal 35.0-45.0 [facility] Comment on above: Performed By: #### 0 0121, 85476, 09813, 18673, 84196 #### [facility] [address] [place] [address], [place] pH (Bld) 7.36 [pH] Normal 7.35-7.45 [facility] Comment on above: Performed By: #### 0 0121, 49346, 95861, 44753, 94269 #### [facility] [address] [place] [address], [place] Potassium [Moles/Vol] 4.5 mmol/L Normal 3.5-4.9 [facility] Comment on above: Performed By: #### 0 0121, 94672, 50024, 34987, 25969 #### [facility] [address] [place] [address], [place] Sodium [Moles/Vol] 138 mmol/L Normal 138-146 [facility] Comment on above: Performed By: #### 0 0121, 78278, 63669, 44338, 67406 #### [facility] [address] [place] [address], [place] BASE EXCESS 0.0 mmol/L Normal -2.0-3.0 [facility] Comment on above: Performed By: #### 0 0121, 44175, 79035, 95716, 40049 #### [facility] [address] [place] [address], [place] Glucose [Mass/Vol] 101 mg/dL Normal 70-105 [facility] Comment on above: Performed By: #### 0 0121, 68101, 93270, 06129, 88724 #### [facility] [address] [place] [address], [facility] Hematocrit (Bld) [Volume fraction] 44 % Normal 38-51 [facility] Comment on above: Performed By: #### 0 0121, 45006, 88655, 51819, 25343 #### [facility] [address] [place] [address], [facility] Hemoglobin (Bld) [Mass/Vol] 15.0 g/dL Normal 12.0-17.0 [facility] Comment on above: Performed By: #### 0 0121, 57134, 82854, 57413, 60921 #### [facility] [address] [place] [address], [facility] IONIZED CALCIUM 1.02 mmol/L Low 1.12-1.32 [facility] Comment on above: Performed By: #### 0 0121, 12739, 72245, 10054, 91421 #### [facility] [address] [place] [address], [facility] Oxygen (Bld) [Partial pressure] 516.0 mm[Hg] High 80.0-105.0 [facility] Comment on above: Performed By: #### 0 0121, 06406, 22496, 92718, 79040 #### [facility] [address] [place] [address], [place] PCO2 50.7 mmHg High 35.0-45.0 [facility] Comment on above: Performed By: #### 0 0121, 70509, 36235, 13146, 99896 #### [facility] [address] [place] [address], [facility] pH (Bld) 7.33 [pH] Low 7.35-7.45 [facility] Comment on above: Performed By: #### 0 0121, 77066, 63439, 89355, 98123 #### [facility] [address] [place] [address], [facility] Potassium [Moles/Vol] 4.1 mmol/L Normal 3.5-4.9 [facility] Comment on above: Performed By: #### 0 0121, 60084, 01389, 69623, 88430 #### [facility] [address] [place] [address], [facility] Sodium [Moles/Vol] 137 mmol/L Low 138-146 [facility] Comment on above: Performed By: #### 0 0121, 46310, 36007, 11576, 72592 #### [facility] [address] [place] [address], [facility] Hematocrit (Bld) [Volume fraction] 43 % Normal 38-51 [facility] Comment on above: Performed By: #### 0 0121, 10310, 34957, 91213, 40198 #### [facility] [address] [place] [address], [facility] Hemoglobin (Bld) [Mass/Vol] 14.6 g/dL Normal 12.0-17.0 [facility] Comment on above: Performed By: #### 0 0121, 50686, 39007, 99661, 06320 #### [facility] [address] [place] [address], [facility] Oxygen (Bld) [Partial pressure] 51.0 mm[Hg] Normal [facility] Comment on above: Performed By: #### 0 0121, 46299, 97002, 73853, 61661 #### [facility] [address] [place] [address], [place] BASE EXCESS -4.0 mmol/L Low -2.0-3.0 [facility] Comment on above: Performed By: #### 0 0121, 01093, 08133, 29472, 88408 #### [facility] [address] [place] [address], [place] Glucose [Mass/Vol] 104 mg/dL Normal 70-105 [facility] Comment on above: Performed By: #### 0 0121, 85375, 52480, 59142, 29308 #### [facility] [address] [place] [address], [place] Hematocrit (Bld) [Volume fraction] 55 % High 38-51 [facility] Comment on above: Performed By: #### 0 0121, 04806, 22056, 38766, 68232 #### [facility] [address] [place] [address], [facility] Hemoglobin (Bld) [Mass/Vol] 18.7 g/dL High 12.0-17.0 [facility] Comment on above: Performed By: #### 0 0121, 65909, 89807, 62476, 18780 #### [facility] [address] [place] [address], [place] IONIZED CALCIUM 1.24 mmol/L Normal 1.12-1.32 [facility] Comment on above: Performed By: #### 0 0121, 73466, 91051, 46188, 51489 #### [facility] [address] [place] [address], [place] Oxygen (Bld) [Partial pressure] 159.0 mm[Hg] High 80.0-105.0 [facility] Comment on above: Performed By: #### 0 0121, 16038, 26103, 27392, 48247 #### [facility] [address] [place] [address], [place] PCO2 48.7 mmHg High 35.0-45.0 [facility] Comment on above: Performed By: #### 0 0121, 14148, 57175, 10144, 59474 #### [facility] [address] [place] [address], [facility] pH (Bld) 7.30 [pH] Low 7.35-7.45 [facility] Comment on above: Performed By: #### 0 0121, 60148, 92341, 87572, 81175 #### [facility] [address] [place] [address], [place] Potassium [Moles/Vol] 4.1 mmol/L Normal 3.5-4.9 [facility] Comment on above: Performed By: #### 0 0121, 64424, 71628, 42640, 61520 #### [facility] [address] [place] [address], [place] Sodium [Moles/Vol] 139 mmol/L Normal 138-146 [facility] Comment on above: Performed By: #### 0 0121, 45491, 87411, 44052, 61376 #### [facility] [address] [place] [address], [place] PHOSPHORUS BLOODon 9 Phosphate [Mass/Vol] 4.3 mg/dL Normal 2.5-5.0 [facility] Comment on above: Order Comment: R/O P ulmonary Edema Performed By: #### 0 0121, 14210, 19678 ####[facility] [place] [address], [facility] GLUCOSE LABon 03-19-2019 Glucose [Mass/Vol] 115 mg/dL High 70-100 [facility] Comment on above: Performed By: #### 5 [id number] #### [facility] [address] [place] [address], [place] Glucose [Mass/Vol] 145 mg/dL High 70-100 [facility] Comment on above: Performed By: #### 5 7301 #### [facility] [address] [place] [address], [place] Glucose [Mass/Vol] 121 mg/dL High 70-100 [facility] Comment on above: Performed By: #### 8 5499 ####[facility] [facility] [address] [facility] Glucose [Mass/Vol] 122 mg/dL High 70-100 [facility] Comment on above: Performed By: #### 8 [id number] ####[facility] PORTABLE CHEST 1 VIEWon 03-01 PORTABLE CHEST 1 VIEW [facility] Department of Radiology [address] [place] [address] ===== Patient Name: TRACIE CRAIN : 1965 Sex: M Age: Race: NA Pt. Location: [id number] Patient Status: I Ordered Date: 03/19/2019 5:50:00 [...] the upper thoracic trachea in satisfactory position. Burbank-Sher catheter, chest tubes and enteric tube appear [...] findings. Electronically signed by:Yenni Osuna. Transcribed by: [email or web address], User Resident: EMILIA SHERMAN Electronically Signed by: YENNI OSUNA @ 03/20/2019 05:05 PM I personally read this/these film(s) with this resident Normal [facility] Comment on above: Order Comment: << On admission If not done in ED>> No: Do not add to previous draw PORTABLE CHEST 1 VIEW [facility] Department of Radiology [address] [place] [id number] ===== Patient Name: TRACIE CRAIN : 1965 Sex: M Age: Race: NA Pt. Location: [id number] Patient Status: I Ordered Date: 03/19/2019 4:45:00 [...] right-sided chest tubes appear in satisfactory position. Burbank-Sher catheter with tip projecting over the pulmonary [...] findings. Electronically signed by:Divya Collins. Transcribed by: [email or web address], User Resident: ANAI ALVARADO Electronically Signed by: DIVYA COLLINS @ 03/20/2019 11:00 AM I personally read this/these film(s) with this resident Normal [facility] Comment on above: Order Comment: << On admission If not done in ED>> No: Do not add to previous draw PORTABLE CHEST 1 [facility] Department of Radiology [address] [place] [id number] ===== Patient Name: TRACIE CRAIN : 1965 Sex: M Age: Race: NA Pt. Location: [id number] Patient Status: I Ordered Date: 03/19/2019 3:55:00 [...] tubes are in place. No appreciable pneumothorax. Burbank-Sher catheter in place likely terminating in the [...] disease most likely representing multifocal atelectasis. * Burbank-Sher catheter likely terminating in the proximal right main pulmonary artery. * Trace pleural fluid bilaterally. Approved by:Pierce Sherman on 03/19/2019 5:04 PM EDT. I, Yenni Osuna, have reviewed the images and report and concur with these findings. Electronically signed by:Yenni Osuna. Transcribed by: [email or web address], User Resident: EMILIA SHERMAN Electronically Signed by: YENNI OSUNA @ 03/20/2019 05:04 PM I personally read this/these film(s) with this resident Normal [facility] Comment on above: Order Comment: << On admission If not done in ED>> No: Do not add to previous draw PROTHROMBIN TIMEon 9 INR Coag (PPP) [Relative time] 1.60 {INR} High 0.91-1.16 [facility] Comment on above: Order Comment: R/O [...] CHEST 1995;108:231S-246S. Performed By: #### 5 6101 ####[facility] [facility] [place] [address], [facility] PT Coag (PPP) [Time] 19.1 s High 12.3-14.8 [facility] Comment on above: Order Comment: R/O P ulmonary Edema Result Comment: ALL RESULTS MUST BE INTERPRETED WITH RESPECT TO BLOOD DRAWING ARTIFACT OR DILUTION ERROR OF ANTICOAGULANT AT THE TIME OF SAMPLING. Performed By: #### 5 6101 ####[facility] [place] [address], [facility] INR Coag (PPP) [Relative time] 1.68 {INR} High 0.91-1.16 [facility] Comment on above: Order Comment: If no t done in ED No: Do not add to previous draw Result Comment: [facility] P RECOMMENDED INR FOR WARFARIN THERAPY ------- [...] CHEST 1995;108:231S-246S. Performed By: #### 8 5123, 55874 #### [facility] [address] [place] [address], [facility] PT Coag (PPP) [Time] 19.9 s High 12.3-14.8 [facility] Comment on above: Order Comment: If no t done in ED No: Do not add to previous draw Result Comment: ALL RESULTS MUST BE INTERPRETED WITH RESPECT TO BLOOD DRAWING ARTIFACT OR DILUTION ERROR OF ANTICOAGULANT AT THE TIME OF SAMPLING. Performed By: #### 8 5123, 47449 #### [facility] [address] [place] [address], [place] INR Coag (PPP) [Relative time] 1.02 {INR} Normal 0.91-1.16 [facility] Comment on above: Order Comment: If no t done in ED No: Do not add to previous draw Result Comment: [facility] P RECOMMENDED INR FOR WARFARIN THERAPY ------- [...] CHEST 1995;108:231S-246S. Performed By: #### 0 0121, 37992, 54063, 15274, 33301 #### [facility] [address] PT Coag (PPP) [Time] 13.4 s Normal 12.3-14.8 [facility] Comment on above: Order Comment: If no t done in ED No: Do not add to previous draw Result Comment: ALL RESULTS MUST BE INTERPRETED WITH RESPECT TO BLOOD DRAWING ARTIFACT OR DILUTION ERROR OF ANTICOAGULANT AT THE TIME OF SAMPLING. Performed By: #### 0 0121, 83955, 51149, 86861, 18190 #### [facility] [address] RBC'S 2 UNITSon 03-19-2019 CROSSMATCH INTERP 1 COMP Normal [facility] Comment on above: Performed By: #### 0 0121, 50341, 47079, 38734, 70350 #### [facility] [address] CROSSMATCH INTERP 2 COMP Normal [facility] Comment on above: Performed By: #### 0 0121, 57890, 61522, 26640, 38721 #### [facility] [address] [place] [address], [place] PRODUCT CODE 1 E0332 Normal [facility] Comment on above: Performed By: #### 0 0121, 57229, 58788, 41278, 73697 #### [facility] [address] [place] [address], [place] PRODUCT CODE 2 E0336 Normal [facility] Comment on above: Performed By: #### 0 0121, 08474, 50500, 41383, 43754 #### [facility] [address] [place] [address], [place] PRODUCT STATUS 1 RE Normal [facility] Comment on above: Result Comment: Resu lt changed by IF on 03/19/2019 08:33. The previous value was XM. Result changed by IF on 03/19/2019 16:19. The previous value was IS. Result changed by IF on 03/20/2019 09:43. The previous value was XM. Result changed by IF on 03/20/2019 09:46. The previous value was XX. Performed By: #### 0 0121, 56399, 52171, 91454, 16948 #### [facility] [address] [place] [address], [facility] PRODUCT STATUS 2 RE Normal [facility] Comment on above: Result Comment: Resu lt changed by IF on 03/19/2019 08:33. The previous value was XM. Result changed by IF on 03/19/2019 16:19. The previous value was IS. Result changed by IF on 03/20/2019 09:43. The previous value was XM. Result changed by IF on 03/20/2019 11:11. The previous value was XX. Performed By: #### 0 0121, 26886, 86111, 20993, 22430 #### [facility] [address] [place] [address], [place] UNIT ABO 1 O Normal [facility] Comment on above: Performed By: #### 0 0121, 39411, 33183, 66619, 16498 #### [facility] [address] [place] [address], [facility] UNIT ABO 2 O Normal [facility] Comment on above: Performed By: #### 0 0121, 14721, 03763, 95066, 49857 #### [facility] [address] [place] [address], [facility] UNIT ID 1 [id number] Normal [facility] Comment on above: Performed By: #### 0 0121, 06171, 97683, 04676, 62338 #### [facility] [address] [place] [address], [facility] UNIT ID 2 [id number] Normal [facility] Comment on above: Performed By: #### 0 0121, 13847, 76711, 12823, 87332 #### [facility] [address] [place] [address], [facility] UNIT RH 1 Negative Normal [facility] Comment on above: Performed By: #### 0 0121, 90604, 50656, 48454, 29309 #### [facility] [address] [facility] [place] [address], [facility] UNIT RH 2 Negative Normal [facility] Comment on above: Performed By: #### 0 0121, 14920, 39477, 68294, 29573 #### [facility] [address] [place], [place] [address] *MRSA/MSSA DNA NASALon 03-18 *MRSA/MSSA DNA NASAL Clinical Report: (D ) Specimen: NASAL SWAB Collected: 03/18/2019 17:05 Status: Final Last Updated: 03/19/2019 12:12 MSSA DNA (Final) Negative MRSA DNA (Final) Negative Normal [facility] Comment on above: Performed By: #### 8 5123, 95070 #### [facility] [address] [place] [address], [facility] APTTon 03-18-2019 aPTT Coag (Bld) [Time] 58.1 s High 25.0-35.0 [facility] Comment on above: Order Comment: << [...] OF HEPARIN. Performed By: #### 0 0121, 64244, 62131, 40440, 46982 #### [facility] [address] [place] [address], [facility] aPTT Coag (Bld) [Time] 67.7 s High 25.0-35.0 [facility] Comment on above: Order Comment: << [...] OF HEPARIN. Performed By: #### 0 0121, 46956, 79444, 85442, 86728 #### [facility] [address] [place] [address], [facility] aPTT Coag (Bld) [Time] 74.8 s Critically high 25.0-35.0 [facility] Comment on above: Order Comment: << [...] AT 0609. Performed By: #### 0 0121, 80107, 82097, 20324, 46587 #### [facility] [address] BASIC METABOLIC PANELon - Calcium [Mass/Vol] 9.2 mg/dL Normal 8.6-10.3 [facility] Comment on above: Order Comment: << ON ADMISSION If not done in ED>> No: Do not add to previous draw Performed By: #### 0 0121, 83326, 67575, 02037, 76240 #### [facility] [address] [facility] [place] [address], [facility] Chloride [Moles/Vol] 105 mmol/L Normal 98-107 [facility] Comment on above: Order Comment: << ON ADMISSION If not done in ED>> No: Do not add to previous draw Performed By: #### 0 0121, 93116, 81167, 10758, 91988 #### [facility] [address] [place] [address], [facility] CO2 [Moles/Vol] 27 mmol/L Normal 21-31 [facility] Comment on above: Order Comment: << ON ADMISSION If not done in ED>> No: Do not add to previous draw Performed By: #### 0 0121, 39644, 16880, 86386, 56015 #### [facility] [address] [facility]. [place] [id number], [facility] Creatinine [Mass/Vol] 1.11 mg/dL Normal 0.70-1.30 [facility] Comment on above: Order Comment: << ON ADMISSION If not done in ED>> No: Do not add to previous draw Performed By: #### 0 0121, 74389, 34920, 95229, 03672 #### [facility] [address] [place] [address], [place] GFR/1.73 sq M predicted among blacks MDRD (S/P/Bld) [Vol rate/Area] mL/min/{1.73_m2} Normal >60 [facility] Comment on above: Order Comment: << ON ADMISSION If not done in ED>> No: Do not add to previous draw Performed By: #### 0 0121, 91745, 47808, 59667, 28389 #### [facility] [address] [place] [address], [place] GFR/1.73 sq M predicted among non-blacks MDRD (S/P/Bld) [Vol rate/Area] mL/min/{1.73_m2} Normal >60 [facility] Comment on above: Order Comment: << ON ADMISSION If not done in ED>> No: Do not add to previous draw Performed By: #### 0 0121, 10605, 81269, 59043, 84571 #### [facility] [address] [place] [address], [place] Glucose [Mass/Vol] 101 mg/dL High 70-100 [facility] Comment on above: Order Comment: << ON ADMISSION If not done in ED>> No: Do not add to previous draw Performed By: #### 0 0121, 19514, 38869, 87532, 98301 #### [facility] [address] [place] [address], [place] Potassium [Moles/Vol] 4.2 mmol/L Normal 3.5-5.1 [facility] Comment on above: Order Comment: << ON ADMISSION If not done in ED>> No: Do not add to previous draw Performed By: #### 0 0121, 20033, 62274, 58371, 28650 #### [facility] [address] [place] [address], [place] Sodium [Moles/Vol] 136 mmol/L Normal 136-145 [facility] Comment on above: Order Comment: << ON ADMISSION If not done in ED>> No: Do not add to previous draw Performed By: #### 0 0121, 60836, 75295, 56672, 77054 #### [facility] [address] [place] [address], [facility] Urea nitrogen [Mass/Vol] 15 mg/dL Normal 7-25 [facility] Comment on above: Order Comment: << ON ADMISSION If not done in ED>> No: Do not add to previous draw Performed By: #### 0 0121, 87150, 07581, 95070, 79431 #### [facility] [address] CBC COMPLETE BLOOD COUNTon 0 - Erythrocyte distribution width (RBC) [Ratio] 12.8 % Normal 11.5-15.0 [facility] Comment on above: Order Comment: << ON ADMISSION If not done in ED>> No: Do not add to previous draw Performed By: #### 0 0121, 04647, 53322, 84708, 42719 #### [facility] [address] Hematocrit (Bld) [Volume fraction] 55.1 % High 39.0-50.0 [facility] Comment on above: Order Comment: << ON ADMISSION If not done in ED>> No: Do not add to previous draw Performed By: #### 0 0121, 74549, 97285, 06361, 26724 #### [facility] [address] [place] [address], [facility] Hemoglobin (Bld) [Mass/Vol] 17.5 g/dL High 13.0-17.0 [facility] Comment on above: Order Comment: << ON ADMISSION If not done in ED>> No: Do not add to previous draw Performed By: #### 0 0121, 27631, 26624, 56552, 61699 #### [facility] [address] MCH (RBC) [Entitic mass] 28.6 pg Normal 27.0-33.0 [facility] Comment on above: Order Comment: << ON ADMISSION If not done in ED>> No: Do not add to previous draw Performed By: #### 0 0121, 72190, 81909, 72088, 81035 #### [facility] [address] MCHC (RBC) [Mass/Vol] 31.8 g/dL Low 32.0-35.0 [facility] Comment on above: Order Comment: << ON ADMISSION If not done in ED>> No: Do not add to previous draw Performed By: #### 0 0121, 33947, 15153, 35167, 53886 #### [facility] [address] MCV (RBC) [Entitic vol] 90.0 fL Normal 82.0-98.0 [facility] Comment on above: Order Comment: << ON ADMISSION If not done in ED>> No: Do not add to previous draw Performed By: #### 0 0121, 92865, 34284, 74615, 45824 #### [facility] [address] Nucleated RBC/100 WBC (Bld) [Ratio] 0 % Normal 0-0 [facility] Comment on above: Order Comment: << ON ADMISSION If not done in ED>> No: Do not add to previous draw Performed By: #### 0 0121, 47550, 81178, 41412, 47451 #### [facility] [address] PLAT CNT 286 10*3/uL Normal 150-400 [facility] Comment on above: Order Comment: << ON ADMISSION If not done in ED>> No: Do not add to previous draw Performed By: #### 0 0121, 81033, 19752, 59062, 52168 #### [facility] [address] [place] [address], [facility] RBC (Bld) [#/Vol] 6.12 10*6/uL High 4.20-5.70 [facility] Comment on above: Order Comment: << ON ADMISSION If not done in ED>> No: Do not add to previous draw Performed By: #### 0 0121, 45187, 31210, 02923, 71403 #### [facility] [address] [place] [address], [facility] WBC (Bld) [#/Vol] 9.33 10*3/uL Normal 4.00-10.60 [facility] Comment on above: Order Comment: << ON ADMISSION If not done in ED>> No: Do not add to previous draw Performed By: #### 0 0121, 31943, 03941, 03787, 06596 #### [facility] [address] [place] [address], [facility] MAGNESIUM BLOODon 03-18-2019 Magnesium [Mass/Vol] 2.4 mg/dL Normal 1.9-2.7 [facility] Comment on above: Performed By: #### 0 0121, 57917, 50481, 62679, 66583 #### [facility] [address] [place] [address], [facility] TYPE AND SCREENon 03-18-2019 ABO INTERPRETATION O Normal [facility] Comment on above: Performed By: #### 0 0121, 56738, 77131, 14158, 54565 #### [facility] [address] [place] [address], [place] RH INTERPRETATION Negative Normal [facility] Comment on above: Performed By: #### 0 0121, 19244, 15686, 38125, 62373 #### [facility] [address] [place] [address], [facility] UFH HEPARIN ASSAYon 03-18-20 19 UNFRACTIONATED HEPARIN 0.19 IU/mL Low 0.30-0.70 [facility] Comment on above: Order Comment: If no t done in ED No: Do not add to previous draw Result Comment: Estefania roxaban and Apixaban will interfere with the anti Xa assay used to monitor UFH and LMWH. Performed By: #### 0 0121, 63320, 31291, 72036, 36084 #### [facility] [address] UNFRACTIONATED HEPARIN 0.29 IU/mL Low 0.30-0.70 [facility] Comment on above: Order Comment: << ON ADMISSION If not done in ED>> No: Do not add to previous draw Result Comment: Estefania roxaban and Apixaban will interfere with the anti Xa assay used to monitor UFH and LMWH. Performed By: #### 0 0121, 35317, 30266, 01044, 23915 #### [facility] [address] [facility]. [address] UNFRACTIONATED HEPARIN 0.25 IU/mL Low 0.30-0.70 [facility] Comment on above: Result Comment: [place] roxaban and Apixaban will interfere with the anti Xa assay used to monitor UFH and LMWH. Performed By: #### 0 0121, 45683, 28344, 62462, 41714 #### [facility] [address] URINALYSISon 03-18-2019 Appearance (U) CLEAR Normal CLEAR [facility] Comment on above: Order Comment: If no t done in ED No: Do not add to previous draw Performed By: #### 0 0121, 94334, 29259, 27301, 76832 #### [facility] [address] [facility] [place] [address], [facility] Bilirubin [Mass/Vol] Negative Normal NEGATIVE [facility] Comment on above: Order Comment: If no t done in ED No: Do not add to previous draw Performed By: #### 0 0121, 46450, 80539, 22182, 01470 #### [facility] [address] [place] [address], [place] BLOOD Negative Normal NEGATIVE [facility] Comment on above: Order Comment: If no t done in ED No: Do not add to previous draw Performed By: #### 0 0121, 46747, 54821, 34475, 99057 #### [facility] [address] [place] [address], [place] Color (U) YELLOW Normal YELLOW [facility] Comment on above: Order Comment: If no t done in ED No: Do not add to previous draw Performed By: #### 0 0121, 99767, 40267, 36300, 22349 #### [facility] [address] [place] [address], [place] Glucose [Mass/Vol] Negative Normal NEGATIVE [facility] Comment on above: Order Comment: If no t done in ED No: Do not add to previous draw Performed By: #### 0 0121, 06394, 01075, 54981, 84151 #### [facility] [address] [place] [address], [place] KETONE Negative Normal NEGATIVE [facility] Comment on above: Order Comment: If no t done in ED No: Do not add to previous draw Performed By: #### 0 0121, 03519, 94379, 70685, 19415 #### [facility] [address] [place] [address], [place] LEUK RADHA Negative Normal NEGATIVE [facility] Comment on above: Order Comment: If no t done in ED No: Do not add to previous draw Performed By: #### 0 0121, 68584, 26489, 89894, 03799 #### [facility] [address] [place] [address], [place] MICRO NOT DONE negative chemical reactions unless requested in original order Normal [facility] Comment on above: Order Comment: If no t done in ED No: Do not add to previous draw Performed By: #### 0 0121, 08867, 56783, 98477, 37822 #### [facility] [address] [place] [address], [facility] Nitrite Ql (U) Negative Normal NEGATIVE [facility] Comment on above: Order Comment: If no t done in ED No: Do not add to previous draw Performed By: #### 0 0121, 90884, 36058, 07519, 72837 #### [facility] [address] [place] [address], [facility] pH (Bld) 6.0 Normal 5.0-8.0 [facility] Comment on above: Order Comment: If no t done in ED No: Do not add to previous draw Performed By: #### 0 0121, 62022, 11654, 10465, 79728 #### [facility] [address] [facility] [place] [address], [facility] Protein (U) [Mass/Vol] Negative Normal NEGATIVE [facility] Comment on above: Order Comment: If no t done in ED No: Do not add to previous draw Performed By: #### 0 0121, 97242, 84174, 29801, 65809 #### [facility] [address] [facility] [place] [address], [facility] SPEC GRAV 1.017 Normal 1.015-1.020 [facility] Comment on above: Order Comment: If no t done in ED No: Do not add to previous draw Performed By: #### 0 0121, 52444, 81076, 26415, 63036 #### [facility] [address] [facility] [place] [address], [facility] APTTon 03-17-2019 aPTT Coag (Bld) [Time] 67.3 s High 25.0-35.0 [facility] Comment on above: Order Comment: No: [...] THIS PURPOSE. Performed By: #### 0 0121, 17388, 23225, 52252, 45410 #### [facility] [address] [place] [address], [facility] BASIC METABOLIC PANELon 02-28 Calcium [Mass/Vol] 9.1 mg/dL Normal 8.6-10.3 [facility] Comment on above: Order Comment: No: D o not add to previous draw Performed By: #### 0 0121, 63939, 77334, 47820, 27322 #### [facility] [address] [place] [address], [facility] Chloride [Moles/Vol] 101 mmol/L Normal 98-107 [facility] Comment on above: Order Comment: No: D o not add to previous draw Performed By: #### 0 0121, 39121, 87778, 99045, 34740 #### [facility] [address] [place] [address], [facility] CO2 [Moles/Vol] 24 mmol/L Normal 21-31 [facility] Comment on above: Order Comment: No: D o not add to previous draw Performed By: #### 0 0121, 27468, 94942, 26906, 60720 #### [facility] [address] [place] [address], [place] Creatinine [Mass/Vol] 1.02 mg/dL Normal 0.70-1.30 [facility] Comment on above: Order Comment: No: D o not add to previous draw Performed By: #### 0 0121, 89342, 01978, 45551, 92342 #### [facility] [address] [place] [address], [place] GFR/1.73 sq M predicted among blacks MDRD (S/P/Bld) [Vol rate/Area] mL/min/{1.73_m2} Normal >60 [facility] Comment on above: Order Comment: No: D o not add to previous draw Performed By: #### 0 0121, 04104, 59088, 54986, 58672 #### [facility] [address] [place] [address], [place] GFR/1.73 sq M predicted among non-blacks MDRD (S/P/Bld) [Vol rate/Area] mL/min/{1.73_m2} Normal >60 [facility] Comment on above: Order Comment: No: D o not add to previous draw Performed By: #### 0 0121, 57183, 70461, 48644, 48387 #### [facility] [address] [place] [address], [place] Glucose [Mass/Vol] 102 mg/dL High 70-100 [facility] Comment on above: Order Comment: No: D o not add to previous draw Performed By: #### 0 0121, 14376, 05523, 31122, 73489 #### [facility] [address] [place] [address], [place] Potassium [Moles/Vol] 3.7 mmol/L Normal 3.5-5.1 [facility] Comment on above: Order Comment: No: D o not add to previous draw Performed By: #### 0 0121, 87206, 36865, 49235, 91920 #### [facility] [address] [place] [address], [place] Sodium [Moles/Vol] 135 mmol/L Low 136-145 [facility] Comment on above: Order Comment: No: D o not add to previous draw Performed By: #### 0 0121, 29150, 04514, 29229, 94821 #### [facility] [address] [place] [address], [place] Urea nitrogen [Mass/Vol] 18 mg/dL Normal 7-25 [facility] Comment on above: Order Comment: No: D o not add to previous draw Performed By: #### 0 0121, 32301, 30164, 95626, 80112 #### [facility] [address] [place] [address], [facility] CBC COMPLETE BLOOD COUNTon 0 - Erythrocyte distribution width (RBC) [Ratio] 12.9 % Normal 11.5-15.0 [facility] Comment on above: Order Comment: No: D o not add to previous draw Performed By: #### 0 0121, 17755, 87128, 28436, 85005 #### [facility] [address] [place] [id number], [facility] Hematocrit (Bld) [Volume fraction] 50.6 % High 39.0-50.0 [facility] Comment on above: Order Comment: No: D o not add to previous draw Performed By: #### 0 0121, 78893, 20381, 75947, 73125 #### [facility] [address] [place] [id number], [facility] Hemoglobin (Bld) [Mass/Vol] 16.1 g/dL Normal 13.0-17.0 [facility] Comment on above: Order Comment: No: D o not add to previous draw Performed By: #### 0 0121, 78616, 76689, 20809, 41127 #### [facility] [address] [place] [address], [facility] MCH (RBC) [Entitic mass] 28.6 pg Normal 27.0-33.0 [facility] Comment on above: Order Comment: No: D o not add to previous draw Performed By: #### 0 0121, 87037, 19544, 64493, 61758 #### [facility] [address] [place] [address], [facility] MCHC (RBC) [Mass/Vol] 31.8 g/dL Low 32.0-35.0 [facility] Comment on above: Order Comment: No: D o not add to previous draw Performed By: #### 0 0121, 17913, 32918, 16136, 13644 #### [facility] [address] [place] [address], [facility] MCV (RBC) [Entitic vol] 90.0 fL Normal 82.0-98.0 [facility] Comment on above: Order Comment: No: D o not add to previous draw Performed By: #### 0 0121, 34934, 87795, 68306, 04909 #### [facility] [address] [place] [address], [facility] Nucleated RBC/100 WBC (Bld) [Ratio] 0 % Normal 0-0 [facility] Comment on above: Order Comment: No: D o not add to previous draw Performed By: #### 0 0121, 24151, 34767, 29974, 16406 #### [facility] [address] [facility] [place] [address], [facility] PLAT CNT 274 10*3/uL Normal 150-400 [facility] Comment on above: Order Comment: No: D o not add to previous draw Performed By: #### 0 0121, 57153, 35349, 29167, 55842 #### [facility] [address] [facility] [place] [address], [facility] RBC (Bld) [#/Vol] 5.62 10*6/uL Normal 4.20-5.70 [facility] Comment on above: Order Comment: No: D o not add to previous draw Performed By: #### 0 0121, 00776, 89527, 41062, 33544 #### [facility] [address] [facility] [place] [address], [facility] WBC (Bld) [#/Vol] 9.65 10*3/uL Normal 4.00-10.60 [facility] Comment on above: Order Comment: No: D o not add to previous draw Performed By: #### 0 0121, 76926, 28302, 38740, 02492 #### [facility] [address] [facility]. [address] Cardiovascular Lab Reporton 03-17-2019 Cardiovascular Lab Report [facility] Patient Name: Argelia Crain [place] Jeri MR #: [id number] Department of Physician: Madan Parsons M.D. Division of Service Date: 03/16/2019 Cardiology Birthdate: 1965 Adult Cardiovascular Room #: 3AB [id number] [facility] [address] [facility] [place] [address] Cardiovascular Laboratory Report CLINICAL PRESENTATION: The patient is a 53-year-old male, who was transferred from the [facility], due to his symptoms of [...] guidance and a micropuncture access technique, a 6-Bahamian sheath was placed in the right internal jugular vein. A Clark catheter was then advanced under fluoroscopic hemodynamic monitor to the right atrium. Pressure was obtained in the right atrium, right ventricle, pulmonary artery, pulmonary capillary wedge position. Oxygen saturations drawn from the pulmonary artery and the Nanci cardiac output and cardiac index were calculated. The Clark catheter was then removed. Next, a 6-Bahamian Terumo Glidesheath slender was placed in the right radial artery. The radial anti-vasospasm cocktail of nitroglycerin 100 mcg was administered through the sheath. All catheter exchanges were made over the MagTeknovus Torque guidewire. A 5-Bahamian [place] catheter was used to engage the left [...] Day M.D. Date Trans: 03/17/2019 05:03 Jhoan/bessie [id number] cc: Titus Villegas M.D. [address] [place] [address] Normal [facility] MAGNESIUM BLOODon 03-17-2019 Magnesium [Mass/Vol] 2.2 mg/dL Normal 1.9-2.7 [facility] Comment on above: Order Comment: No: D o not add to previous draw Performed By: #### 0 0121, 28916, 82598, 48354, 47293 #### [facility] [address] UFH HEPARIN ASSAYon 03-17-20 19 UNFRACTIONATED HEPARIN 0.30 IU/mL Normal 0.30-0.70 [facility] Comment on above: Result Comment: Estefania roxaban and Apixaban will interfere with the anti Xa assay used to monitor UFH and LMWH. Performed By: #### 0 0121, 51862, 13825, 35877, 67623 #### [facility] [address] [place] [address], [facility] APTTon 03-16-2019 aPTT Coag (Bld) [Time] 63.7 s High 25.0-35.0 [facility] Comment on above: Order Comment: No: [...] OF HEPARIN. Performed By: #### 0 0121, 43293, 67821, 31970, 98031 #### [facility] [address] [place] [address], [facility] aPTT Coag (Bld) [Time] 87.5 s Critically high 25.0-35.0 [facility] Comment on above: Order Comment: No: [...] READ BACK BY DAKOTAH MONTANO RN @ 05 on 03-16-19 CLINICAL SIGNIFICANCE OF THE PTT RESULT IS QUESTIONABLE IN THE PRESENCE OF HEPARIN. Performed By: #### 0 0121, 20915, 15051, 96918, 24203 #### [facility] [address] [facility]. [address] Cardiovascular Lab Reporton 03-16-2019 Cardiovascular Lab Report [facility] Patient Name: [facility] Jeri MR #: [id number] Department of Physician: Ilan Danielson MD Division of Service Date: 03/16/2019 Cardiology Birthdate: 1965 Adult Cardiovascular Room #: 3AB [id number] [facility] [address] [facility]. [place] [address] Cardiovascular Laboratory Report PROCEDURE: Transesophageal echocardiogram and cardioversion. INDICATION: Atrial fibrillation. PROCEDURE IN DETAIL: An informed consent was obtained from the patient after explaining indications, risks, benefits, and alternatives. The patient understood and agreed and signed the consent form. The patient was brought to the general production laborer and GERMAN/transesophageal echocardiogram was performed under [...] Danielson MD Date Trans: 03/16/2019 07:28 P/tylero [id number] cc: Titus Villegas M.D. [address] [place] [address] Normal [facility] ERYTHROPOIETIN [id number] 03-16 ERYTHROPOIETIN 7 mU/mL Normal 4-27 [facility] Comment on above: Order Comment: [...] benefit from therapy with recombinant EPO ([id number]). Performed by [facility], [address] [place] [id number] [email or web address] Jann Somers MD - Lab. Director UFH HEPARIN ASSAYon 03-16-20 UNFRACTIONATED HEPARIN 0.43 IU/mL Normal 0.30-0.70 [facility] Comment on above: Result Comment: [place] roxaban and Apixaban will interfere with the anti Xa assay used to monitor UFH and LMWH. Performed By: #### 0 0121, 60266, 46513, 33750, 69327 #### [facility] [address] UNFRACTIONATED HEPARIN 0.53 IU/mL Normal 0.30-0.70 [facility] Comment on above: Result Comment: [place] roxaban and Apixaban will interfere with the anti Xa assay used to monitor UFH and LMWH. Performed By: #### 0 0121, 37293, 35110, 99781, 38223 #### [facility] [address] APTTon 03-15-2019 aPTT Coag (Bld) [Time] 74.0 s Critically high 25.0-35.0 [facility] Comment on above: Order Comment: No: [...] AT 2127 Performed By: #### 0 0121, 56777, 62859, 87635, 13563 #### [facility] [address] [place] [address], [facility] aPTT Coag (Bld) [Time] 84.1 s Critically high 25.0-35.0 [facility] Comment on above: Order Comment: << [...] OF HEPARIN. Performed By: #### 0 0121, 67055, 22662, 24086, 84735 #### [facility] [address] [facility]. [address] aPTT Coag (Bld) [Time] 59.2 s High 25.0-35.0 [facility] Comment on above: Order Comment: << [...] THIS PURPOSE. Performed By: #### 0 0121, 91636, 56751, 25671, 42841 #### [facility] [address] [facility] [place] [address], [facility] BASIC METABOLIC PANELon - Calcium [Mass/Vol] 9.9 mg/dL Normal 8.6-10.3 [facility] Comment on above: Order Comment: << On admission If not done in ED>> No: Do not add to previous draw Performed By: #### 0 0121, 65815, 08393, 21395, 04133 #### [facility] [address] [place] [address], [facility] Chloride [Moles/Vol] 101 mmol/L Normal 98-107 [facility] Comment on above: Order Comment: << On admission If not done in ED>> No: Do not add to previous draw Performed By: #### 0 0121, 42636, 78129, 56051, 95594 #### [facility] [address] [place] [address], [place] CO2 [Moles/Vol] 25 mmol/L Normal 21-31 [facility] Comment on above: Order Comment: << On admission If not done in ED>> No: Do not add to previous draw Performed By: #### 0 0121, 53476, 14147, 62960, 95322 #### [facility] [address] [place] [address], [facility] Creatinine [Mass/Vol] 1.02 mg/dL Normal 0.70-1.30 [facility] Comment on above: Order Comment: << On admission If not done in ED>> No: Do not add to previous draw Performed By: #### 0 0121, 74252, 52907, 15980, 78098 #### [facility] [address] [place] [address], [place] GFR/1.73 sq M predicted among blacks MDRD (S/P/Bld) [Vol rate/Area] mL/min/{1.73_m2} Normal >60 [facility] Comment on above: Order Comment: << On admission If not done in ED>> No: Do not add to previous draw Performed By: #### 0 0121, 76235, 89654, 68263, 69016 #### [facility] [address] [place] [address], [place] GFR/1.73 sq M predicted among non-blacks MDRD (S/P/Bld) [Vol rate/Area] mL/min/{1.73_m2} Normal >60 [facility] Comment on above: Order Comment: << On admission If not done in ED>> No: Do not add to previous draw Performed By: #### 0 0121, 19078, 88387, 24902, 31086 #### [facility] [address] [place] [address], [facility] Glucose [Mass/Vol] 100 mg/dL Normal 70-100 [facility] Comment on above: Order Comment: << On admission If not done in ED>> No: Do not add to previous draw Performed By: #### 0 0121, 30204, 90377, 48360, 40332 #### [facility] [address] [place] [address], [facility] Potassium [Moles/Vol] 4.0 mmol/L Normal 3.5-5.1 [facility] Comment on above: Order Comment: << On admission If not done in ED>> No: Do not add to previous draw Performed By: #### 0 0121, 26514, 00005, 62850, 11932 #### [facility] [address] [place] [address], [facility] Sodium [Moles/Vol] 135 mmol/L Low 136-145 [facility] Comment on above: Order Comment: << On admission If not done in ED>> No: Do not add to previous draw Performed By: #### 0 0121, 29011, 79049, 38441, 96890 #### [facility] [address] [place] [address], [facility] Urea nitrogen [Mass/Vol] 24 mg/dL Normal 7-25 [facility] Comment on above: Order Comment: << On admission If not done in ED>> No: Do not add to previous draw Performed By: #### 0 0121, 63801, 65948, 06389, 68936 #### [facility] [address] [place] [address], [facility] CBC COMPLETE BLOOD COUNTon 0 - Erythrocyte distribution width (RBC) [Ratio] 13.1 % Normal 11.5-15.0 [facility] Comment on above: Order Comment: << On admission If not done in ED>> No: Do not add to previous draw Performed By: #### 0 0121, 50362, 16227, 16206, 06581 #### [facility] [address] [place] [address], [facility] Hematocrit (Bld) [Volume fraction] 53.6 % High 39.0-50.0 [facility] Comment on above: Order Comment: << On admission If not done in ED>> No: Do not add to previous draw Performed By: #### 0 0121, 82769, 05082, 81858, 69271 #### [facility] [address] [place] [address], [facility] Hemoglobin (Bld) [Mass/Vol] 17.4 g/dL High 13.0-17.0 [facility] Comment on above: Order Comment: << On admission If not done in ED>> No: Do not add to previous draw Performed By: #### 0 0121, 84168, 16940, 55805, 50224 #### [facility] [address] [place] [address], [facility] MCH (RBC) [Entitic mass] 28.6 pg Normal 27.0-33.0 [facility] Comment on above: Order Comment: << On admission If not done in ED>> No: Do not add to previous draw Performed By: #### 0 0121, 50332, 54240, 15918, 50841 #### [facility] [address] [place] [address], [facility] MCHC (RBC) [Mass/Vol] 32.5 g/dL Normal 32.0-35.0 [facility] Comment on above: Order Comment: << On admission If not done in ED>> No: Do not add to previous draw Performed By: #### 0 0121, 94470, 41586, 35663, 76005 #### [facility] [address] [place] [address], [facility] MCV (RBC) [Entitic vol] 88.0 fL Normal 82.0-98.0 [facility] Comment on above: Order Comment: << On admission If not done in ED>> No: Do not add to previous draw Performed By: #### 0 0121, 50996, 26834, 12108, 05379 #### [facility] [address] [place] [address], [facility] Nucleated RBC/100 WBC (Bld) [Ratio] 0 % Normal 0-0 [facility] Comment on above: Order Comment: << On admission If not done in ED>> No: Do not add to previous draw Performed By: #### 0 0121, 42781, 29698, 26699, 50688 #### [facility] [address] [place] [address], [facility] PLAT CNT 286 10*3/uL Normal 150-400 [facility] Comment on above: Order Comment: << On admission If not done in ED>> No: Do not add to previous draw Performed By: #### 0 0121, 45139, 83896, 87303, 52667 #### [facility] [address] [place] [address], [facility] RBC (Bld) [#/Vol] 6.09 10*6/uL High 4.20-5.70 [facility] Comment on above: Order Comment: << On admission If not done in ED>> No: Do not add to previous draw Performed By: #### 0 0121, 03386, 08043, 21163, 41005 #### [facility] [address] [place] [address], [facility] WBC (Bld) [#/Vol] 10.49 10*3/uL Normal 4.00-10.60 [facility] Comment on above: Order Comment: << On admission If not done in ED>> No: Do not add to previous draw Performed By: #### 0 0121, 15285, 91364, 36496, 64204 #### [facility] [address] [place] [address], [facility] LIPID PROFILEon 06-16-2019 Cholesterol [Mass/Vol] 140 mg/dL Normal 120-200 [facility] Comment on above: Order Comment: << On admission If not done in ED>> No: Do not add to previous draw Result Comment: CHOL ESTEROL REFERENCE RANGE: 20 YEARS AND OLDER CARDIOVASCULAR RISK Less than 200 mg/dl Low Risk 200 to 239 mg/dl Borderline Risk 240 mg/dl and greater High Risk Performed By: #### 0 0121, 91581, 02451, 94514, 01454 #### [facility] [address] [place] [address], [facility] Cholesterol in HDL [Mass/Vol] 38 mg/dL Normal 23-92 [facility] Comment on above: Order Comment: << [...] High Risk Performed By: #### 0 0121, 37138, 33344, 73497, 51432 #### [facility] [address] [place] [address], [facility] Cholesterol in LDL [Mass/Vol] 88 mg/dL Normal 0-130 [facility] Comment on above: Order Comment: << On admission If not done in ED>> No: Do not add to previous draw Result Comment: LDL IS A CALCULATION LDL IS ONLY VALID IF THE TRIG IS LESS THAN 400. Performed By: #### 0 0121, 40267, 53578, 28053, 95159 #### [facility] [address] [place] [address], [facility] Cholesterol.total/Ch olesterol in HDL [Mass ratio] 3.7 {ratio} Normal .0-4.5 [facility] Comment on above: Order Comment: << On admission If not done in ED>> No: Do not add to previous draw Performed By: #### 0 0121, 83321, 20483, 05568, 13350 #### [facility] [address] NON-HDL CHOLESTEROL 102 mg/dL Normal [facility] Comment on above: Order Comment: << On admission If not done in ED>> No: Do not add to previous draw Performed By: #### 0 0121, 20519, 64410, 69684, 36421 #### [facility] [address] Triglyceride [Mass/Vol] 70 mg/dL Normal 40-149 [facility] Comment on above: Order Comment: << On admission If not done in ED>> No: Do not add to previous draw Result Comment: TRIG LYCERIDE REFERENCE RANGE: 20 YEARS AND OLDER CARDIOVASCULAR RISK LESS THAN 150 mg/dl LOW RISK 150 TO 199 mg/dl BORDERLINE RISK 200 mg/dl AND GREATER HIGH RISK Performed By: #### 0 0121, 22383, 90978, 31803, 07039 #### [facility] [address] VLDL CHOL 14 mg/dL Normal 0-40 [facility] Comment on above: Order Comment: << On admission If not done in ED>> No: Do not add to previous draw Performed By: #### 0 0121, 64361, 29316, 45953, 23955 #### [facility] [address] TROPONIN-Ion 03-15-2019 Troponin I.cardiac [Mass/Vol] 0.01 ng/mL Normal 0.00-0.04 [facility] Comment on above: Order Comment: << On admission If not done in ED>> No: Do not add to previous draw Result Comment: REFE RENCE RANGES: 0.00 - 0.04 ng/ml NORMAL 0.05 - 0.50 ng/ml INDETERMINATE > 0.50 ng/ml CONSISTENT WITH AN M.I. Performed By: #### 0 0121, 28637, 10710, 16405, 21672 #### [facility] [address] [place] [address], [facility] UFH HEPARIN ASSAYon 03-15-20 19 UNFRACTIONATED HEPARIN 0.62 IU/mL Normal 0.30-0.70 [facility] Comment on above: Order Comment: No: D o not add to previous draw Result Comment: [place] roxaban and Apixaban will interfere with the anti Xa assay used to monitor UFH and LMWH. Performed By: #### 0 0121, 33966, 73996, 28113, 94976 #### [facility] [address] [place] [address], [facility] UNFRACTIONATED HEPARIN 0.92 IU/mL Critically high 0.30-0.70 [facility] Comment on above: Result Comment: [place] roxaban and Apixaban will interfere with the anti Xa assay used to monitor UFH and LMWH. RESULTS CHECKED AND CALLED. ACCURATELY READ BACK BY DAXA MONTEJO RN @ 1309 Performed By: #### 0 0121, 67407, 92747, 28347, 14451 #### [facility] [address] [place] [address], [facility] UNFRACTIONATED HEPARIN 0.90 IU/mL Critically high 0.30-0.70 [facility] Comment on above: Result Comment: [place] roxaban and Apixaban will interfere with the anti Xa assay used to monitor UFH and LMWH. RESULTS CHECKED AND CALLED. ACCURATELY READ BACK BY DAXA MONTEJO RN @ 0822 Performed By: #### 0 0121, 06178, 20019, 76148, 63129 #### [facility] [address] [place] [address], [facility] APTTon 03-14-2019 aPTT Coag (Bld) [Time] 32.8 s Normal 25.0-35.0 [facility] Comment on above: Order Comment: No: [...] PURPOSE. Performed By: #### 5 7307 #### [facility] [address] BNP (B-TYPE NATRIURETIC PEPT PACHECO)on 03-14-2019 Natriuretic peptide B (Bld) [Mass/Vol] 112 pg/mL High 0-100 [facility] Comment on above: Order Comment: If no t done in ED No: Do not add to previous draw Result Comment: Give n the appropriate clinical setting a BNP result of >100 pg/mL indicates congestive heart failure. Performed By: #### 8 5123, 36236 #### [address] CBC W/DIFFon 03-14-2019 ABS BASOPHILS 0.1 10*3/uL Normal 0.0-0.2 [facility] Comment on above: Order Comment: If no t done in ED No: Do not add to previous draw Performed By: #### 5 0103 #### [facility] [address] ABS IMM GRANS 0.1 10*3/uL Normal 0.0-0.2 [facility] Comment on above: Order Comment: If no t done in ED No: Do not add to previous draw Performed By: #### 5 0103 #### [facility] [address] ABS NEUTROPHILS 7.1 10*3/uL Normal 1.6-7.6 [facility] Comment on above: Order Comment: If no t done in ED No: Do not add to previous draw Performed By: #### 5 0103 #### [facility] [address] Basophils/100 WBC (Bld) 1.0 % Normal 0.0-1.0 [facility] Comment on above: Order Comment: If no t done in ED No: Do not add to previous draw Performed By: #### 5 0103 #### [facility] [address] [place] [address], [facility] Eosinophils (Bld) [#/Vol] 0.3 10*3/uL Normal 0.0-0.5 [facility] Comment on above: Order Comment: If no t done in ED No: Do not add to previous draw Performed By: #### 5 0103 #### [facility] [address] [place] [id number], [facility] Eosinophils/100 WBC (Bld) 2.8 % Normal 0.0-6.0 [facility] Comment on above: Order Comment: If no t done in ED No: Do not add to previous draw Performed By: #### 5 0103 #### [facility] [address] [place] [address], [facility] Erythrocyte distribution width (RBC) [Ratio] 13.2 % Normal 11.5-15.0 [facility] Comment on above: Order Comment: If no t done in ED No: Do not add to previous draw Performed By: #### 5 0103 #### [facility] [address] [place] [address], [facility] Hematocrit (Bld) [Volume fraction] 53.8 % High 39.0-50.0 [facility] Comment on above: Order Comment: If no t done in ED No: Do not add to previous draw Performed By: #### 5 0103 #### [facility] [address] [place] [address], [facility] Hemoglobin (Bld) [Mass/Vol] 17.2 g/dL High 13.0-17.0 [facility] Comment on above: Order Comment: If no t done in ED No: Do not add to previous draw Performed By: #### 5 0103 #### [facility] [address] [place] [address], [facility] IMMATURE GRANS 0.5 % Normal 0.0-1.0 [facility] Comment on above: Order Comment: If no t done in ED No: Do not add to previous draw Performed By: #### 5 0103 #### [facility] [address] [place] [address], [facility] Lymphocytes (Bld) [#/Vol] 2.4 10*3/uL Normal 1.2-4.0 [facility] Comment on above: Order Comment: If no t done in ED No: Do not add to previous draw Performed By: #### 5 0103 #### [facility] [address] [place] [address], [facility] Lymphocytes/100 WBC (Bld) 21.0 % Normal 20.0-45.0 [facility] Comment on above: Order Comment: If no t done in ED No: Do not add to previous draw Performed By: #### 5 0103 #### [facility] [address] [place] [address], [facility] MCH (RBC) [Entitic mass] 28.9 pg Normal 27.0-33.0 [facility] Comment on above: Order Comment: If no t done in ED No: Do not add to previous draw Performed By: #### 5 0103 #### [facility] [address] [place] [address], [facility] MCHC (RBC) [Mass/Vol] 32.0 g/dL Normal 32.0-35.0 [facility] Comment on above: Order Comment: If no t done in ED No: Do not add to previous draw Performed By: #### 5 0103 #### [facility] [address] [place] [address], [facility] MCV (RBC) [Entitic vol] 90.4 fL Normal 82.0-98.0 [facility] Comment on above: Order Comment: If no t done in ED No: Do not add to previous draw Performed By: #### 5 0103 #### [facility] [address] [place] [address], [facility] Monocytes (Bld) [#/Vol] 1.4 10*3/uL High 0.1-1.0 [facility] Comment on above: Order Comment: If no t done in ED No: Do not add to previous draw Performed By: #### 5 0103 #### [facility] [address] [place] [address], [facility] MONOS 12.2 % High 5.0-12.0 [facility] Comment on above: Order Comment: If no t done in ED No: Do not add to previous draw Performed By: #### 5 0103 #### [facility] [address] [place] [address], [facility] Neutrophils/100 WBC (Bld) 62.5 % Normal 40.0-72.0 [facility] Comment on above: Order Comment: If no t done in ED No: Do not add to previous draw Performed By: #### 5 0103 #### [facility] [address] [place] [address], [facility] Nucleated RBC/100 WBC (Bld) [Ratio] 0 % Normal 0-0 [facility] Comment on above: Order Comment: If no t done in ED No: Do not add to previous draw Performed By: #### 5 0103 #### [facility] [address] [facility] [place] [address], [facility] PLAT CNT 321 10*3/uL Normal 150-400 [facility] Comment on above: Order Comment: If no t done in ED No: Do not add to previous draw Performed By: #### 5 0103 #### [facility] [address] [place] [address], [facility] RBC (Bld) [#/Vol] 5.95 10*6/uL High 4.20-5.70 [facility] Comment on above: Order Comment: If no t done in ED No: Do not add to previous draw Performed By: #### 5 0103 #### [facility] [address] [place] [address], [facility] WBC (Bld) [#/Vol] 11.32 10*3/uL High 4.00-10.60 [facility] Comment on above: Order Comment: If no t done in ED No: Do not add to previous draw Performed By: #### 5 0103 #### [facility] [address] [place] [address], [facility] COMP METABOLIC PANELon 03-14 Albumin [Mass/Vol] 4.3 g/dL Normal 3.5-5.7 [facility] Comment on above: Order Comment: << On admission If not done in ED>> No: Do not add to previous draw Performed By: #### 0 0121, 23795, 51457, 99432, 60205 #### [facility] [address] [place] [address], [facility] ALKALINE PHOSPH 59 IU/L Normal 34-104 [facility] Comment on above: Order Comment: << On admission If not done in ED>> No: Do not add to previous draw Performed By: #### 0 0121, 94792, 70441, 03354, 23610 #### [facility] [address] [place] [address], [facility] ALT [Catalytic activity/Vol] 21 U/L Normal 7-52 [facility] Comment on above: Order Comment: << On admission If not done in ED>> No: Do not add to previous draw Performed By: #### 0 0121, 93510, 84132, 52790, 21637 #### [facility] [address] [place] [address], [facility] AST [Catalytic activity/Vol] 26 U/L Normal 13-39 [facility] Comment on above: Order Comment: << On admission If not done in ED>> No: Do not add to previous draw Performed By: #### 0 0121, 61710, 48741, 06535, 68269 #### [facility] [address] [place] [address], [facility] Bilirubin [Mass/Vol] 1.1 mg/dL High 0.3-1.0 [facility] Comment on above: Order Comment: << On admission If not done in ED>> No: Do not add to previous draw Performed By: #### 0 0121, 11452, 48711, 65624, 85946 #### [facility] [address] [place] [address], [place] Calcium [Mass/Vol] 10.5 mg/dL High 8.6-10.3 [facility] Comment on above: Order Comment: << On admission If not done in ED>> No: Do not add to previous draw Performed By: #### 0 0121, 83041, 95778, 30075, 27123 #### [facility] [address] [place] [address], [facility] Chloride [Moles/Vol] 98 mmol/L Normal 98-107 [facility] Comment on above: Order Comment: << On admission If not done in ED>> No: Do not add to previous draw Performed By: #### 0 0121, 36226, 76396, 29347, 86177 #### [facility] [address] [place] [address], [place] CO2 [Moles/Vol] 31 mmol/L Normal 21-31 [facility] Comment on above: Order Comment: << On admission If not done in ED>> No: Do not add to previous draw Performed By: #### 0 0121, 93726, 71376, 24749, 36407 #### [facility] [address] [place] [address], [place] Creatinine [Mass/Vol] 1.36 mg/dL High 0.70-1.30 [facility] Comment on above: Order Comment: << On admission If not done in ED>> No: Do not add to previous draw Performed By: #### 0 0121, 69216, 06032, 98023, 40475 #### [facility] [address] [place] [address], [place] GFR/1.73 sq M predicted among blacks MDRD (S/P/Bld) [Vol rate/Area] mL/min/{1.73_m2} Normal >60 [facility] Comment on above: Order Comment: << On admission If not done in ED>> No: Do not add to previous draw Performed By: #### 0 0121, 16311, 57820, 90930, 55467 #### [facility] [address] [place] [address], [place] GFR/1.73 sq M predicted among non-blacks MDRD (S/P/Bld) [Vol rate/Area] 55 ml/min/1.73sq m Abnormal >60 [facility] Comment on above: Order Comment: << On admission If not done in ED>> No: Do not add to previous draw Performed By: #### 0 0121, 15419, 65686, 38472, 44006 #### [facility] [address] [place] [address], [place] Glucose [Mass/Vol] 81 mg/dL Normal 70-100 [facility] Comment on above: Order Comment: << On admission If not done in ED>> No: Do not add to previous draw Performed By: #### 0 0121, 94044, 16918, 57565, 53900 #### [facility] [address] [place] [address], [place] Potassium [Moles/Vol] 3.8 mmol/L Normal 3.5-5.1 [facility] Comment on above: Order Comment: << On admission If not done in ED>> No: Do not add to previous draw Performed By: #### 0 0121, 63436, 01938, 39319, 80294 #### [facility] [address] [place] [address], [place] Protein [Mass/Vol] 7.4 g/dL Normal 6.0-8.3 [facility] Comment on above: Order Comment: << On admission If not done in ED>> No: Do not add to previous draw Performed By: #### 0 0121, 08309, 06157, 14088, 37424 #### [facility] [address] [place] [address], [place] Sodium [Moles/Vol] 138 mmol/L Normal 136-145 [facility] Comment on above: Order Comment: << On admission If not done in ED>> No: Do not add to previous draw Performed By: #### 0 0121, 09916, 27350, 15203, 96911 #### [facility] [address] [place] [address], [place] Urea nitrogen [Mass/Vol] 26 mg/dL High 7-25 [facility] Comment on above: Order Comment: << On admission If not done in ED>> No: Do not add to previous draw Performed By: #### 0 0121, 25180, 38542, 74997, 88582 #### [facility] [address] [place] [address], [place] FREE T4on 03-14-2019 Free T4 [Mass/Vol] 1.18 ng/dL Normal 0.71-1.85 [facility] Comment on above: Order Comment: If no t done in ED No: Do not add to previous draw Performed By: #### 0 0121, 18345, 87110, 34293, 92125 #### [facility] [address] [place] [address], [place] HEMOGLOBIN A1Con 03-14-2019 HbA1c (Bld) [Mass fraction] 103 mg/dL Normal 70-126 [facility] Comment on above: Order Comment: If no t done in ED No: Do not add to previous draw Performed By: #### 8 5123, 30486 #### [facility] [address] [place] [address], [place] HbA1c (Bld) [Mass fraction] 5.2 % Normal 4.0-6.0 [facility] Comment on above: Order Comment: If no t done in ED No: Do not add to previous draw Performed By: #### 8 5353, 39547 #### [facility] Daya ARGUETA. [address] History and Physicalon 03-14 History and Physical MR#: [id number] [facility] Pt. Name: Argelia Crain Admitted: 03/14/2019 Date of : 1965 Attending Physician: Dimitry Lyles M.D. Room #: 3AB [id number] Discharge Date: HISTORY AND PHYSICAL CHIEF COMPLAINT: Atrial fibrillation and bilateral lower extremity swelling. HISTORY OF PRESENT ILLNESS: Mr. Whitt is a 53-year-old male with the past medical history of depression and GERD, who was transferred from [facility] for atrial fibrillation and congestive heart failure. The patient states that he has been complaining of progressively worsening bilateral lower extremity swelling for the last four months. The patient states that he has never had bilateral lower extremity swelling like this in the past. The patient was [facility] by [facility] and was sent to [facility]. At [facility], EKG showed atrial fibrillation with RVR. Chest x-ray showed bilateral pulmonary venous congestion. The patient was admitted for one day at [facility] and was started on metoprolol 75 mg twice a day and Eliquis. The patient was also diuresed with Lasix and put out around 2.8 L of urine. An echocardiogram was done at [facility], which showed a reduced ejection [...] drug use. 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 FAMILY HISTORY: [...] he received metoprolol 75 mg b.i.d. at [facility]. His heart rate is currently in the 80s to 90s. Will start him on metoprolol 12.5 mg BID. The patient received a dose of Eliquis today this morning at [facility], will discontinue Eliquis and start him on heparin drip in the evening around 10 p.m. His TSH and T4 were normal at [facility]. If the patient does not convert back to normal sinus rhythm, the patient will have GERMAN/cardioversion on Saturday. 2. Acute systolic CHF exacerbation: An echocardiogram at [facility] showed reduced ejection fraction. The patient was diuresed with Lasix 40 mg IV twice a day at [facility] and diuresed around 2.8 L. Will start [...] Lyles M.D. Date Trans: 03/14/2019 01:33 P/mmo [id number] Normal [facility] MAGNESIUM BLOODon 03-14-2019 Magnesium [Mass/Vol] 2.4 mg/dL Normal 1.9-2.7 [facility] Comment on above: Order Comment: << ON ADMISSION If not done in ED>> No: Do not add to previous draw Performed By: #### 0 0121, 47384, 26631, 07410, 58683 #### [address] PORTABLE CHEST 1 VIEWon 02-28 PORTABLE CHEST 1 VIEW [facility] Department of Radiology [address] [place] [address] ===== Patient Name: ARGELIA CRAIN : 1965 Sex: M Age: Race: NA Pt. Location: [address] [place] [address] Patient Status: I Ordered Date: 03/14/2019 10:35:00 [...] findings. Electronically signed by:Yenni Osuna. Transcribed by: [email or web address], User Resident: KAREEM LIAO Electronically Signed by: YENNI OSUNA @ 03/14/2019 04:53 PM I personally read this/these film(s) with this resident Normal [facility] Comment on above: Order Comment: R/O P ulmonary Edema TROPONIN-Ion 03-14-2019 Troponin I.cardiac [Mass/Vol] 0.00 ng/mL Normal 0.00-0.04 [facility] Comment on above: Order Comment: << On admission If not done in ED>> No: Do not add to previous draw Result Comment: REFE RENCE RANGES: 0.00 - 0.14 ng/ml NEGATIVE 0.15 - 0.25 ng/ml INDETERMINATE > 0.25 ng/ml INDICATIVE OF AN M.I. Performed By: #### 0 0121, 10235, 59082, 67034, 98042 #### [facility] [address] [facility]. [address] Troponin I.cardiac [Mass/Vol] 0.01 ng/mL Normal 0.00-0.04 [facility] Comment on above: Order Comment: No: D o not add to previous draw Result Comment: REFE RENCE RANGES: 0.00 - 0.04 ng/ml NORMAL 0.05 - 0.50 ng/ml INDETERMINATE > 0.50 ng/ml CONSISTENT WITH AN M.I. Performed By: #### 0 0121, 45812, 71669, 60844, 58937 #### [facility] [address] [facility]. [address] TSH3on 03-14-2019 TSH 3RD GENERATION 2.05 uIU/mL Normal 0.34-5.60 [facility] Comment on above: Order Comment: TSH3 with Reflex canceled. TSH3 ordered. Performed By: #### 0 0121, 34703, 79168, 48093, 69866 #### [facility] [address] CBC With Platelet No Differe ntialon 03-04-2018 Erythrocyte distribution width Auto Ratio (RBC) 13.9 % Normal 11.5-14.5 [facility] Erythrocytes (RBC) 5.34 10*6/uL Normal 4.70-6.10 [facility] Hematocrit (HCT) 49.8 % Normal 42.0-52.0 [facility] Hemoglobin mass conc (Bld) 16.4 g/dL Normal 14.0-18.0 [facility] MCH 30.8 pg Normal 27.0-31.3 [facility] MCHC mass conc (RBC) 33.0 % Normal 33.0-37.0 [facility] MCV 93.3 fL Normal 80.0-100.0 [facility] Platelets 281 10*3/uL Normal 130-400 [facility] WBC (Leukocytes) 9.3 10*3/uL Normal 4.8-10.8 [facility] Comprehensive Metabolic Pane gian 03-04-2018 Alanine aminotransferase (ALT) 20 U/L Normal 0-41 [facility] Albumin 4.6 g/dL Normal 3.9-4.9 [facility] Alkaline phosphatase (ALP) 56 U/L Normal 35-104 [facility] Anion gap 18 mmol/L Critically high 7-13 [facility] Aspartate aminotransferase (AST) 18 U/L Normal 0-40 [facility] Bilirubin (total) 0.7 mg/dL Normal 0.0-1.2 [facility] Calcium 9.4 mg/dL Normal 8.6-10.2 [facility] Chloride 103 mmol/L Normal 98-107 [facility] CO2 20 mmol/L Low 22-29 [facility] Creatinine 0.78 mg/dL Normal 0.70-1.20 [facility] eGFR (black) mL/min/{1.73_m2} Normal >60 [facility] Comment on above: Result Comment: >60 mL/min/1.73m2 EGFR, calc. for ages 18 and older using theMDRD formula (not corrected for weight), is valid for stablerenal function. eGFR (MDRD) mL/min/{1.73_m2} Normal >60 [facility] Comment on above: Result Comment: >60 mL/min/1.73m2 EGFR, calc. for ages 18 and older using theMDRD formula (not corrected for weight), is valid for stablerenal function. Globulin 2.7 g/dL Normal 2.3-3.5 [facility] Glucose mass conc 91 mg/dL Normal 74-109 [facility] Potassium molar conc 4.1 mmol/L Normal 3.5-5.1 [facility] Protein 7.3 g/dL Normal 6.4-8.1 [facility] Sodium 141 mmol/L Normal 132-144 [facility] Urea nitrogen 15 mg/dL Normal 6-20 [facility] Hemoglobin A1con 03-04-2018 Hemoglobin A1c/Hemoglobin.total mass fraction (Bld) 5.5 % Normal 4.8-5.9 [facility] Lipid Panelon 03-04-2018 Cholesterol 167 mg/dL Normal 0-199 [facility] Comment on above: Result Comment: ATP III Cholesterol classification is Desirable. HDL Cholesterol 47 mg/dL Normal 40-59 [facility] Comment on above: Result Comment: ATP III HDL Cholesterol Classification is Desirable.Expected Values:Males: >55 = No Risk 35-55 = Moderate Risk <35 = High RiskFemales: >65 = No Risk 45-65 = Moderate Risk <45 = High RiskNCEP Guidelines: Third Report January 2001>59 = negative risk factor for CHD<40 = major risk factor for CHD LDL Cholesterol 99 mg/dL Normal 0-129 [facility] Comment on above: Result Comment: ATP III LDL Classification is Optimal. Triglyceride 105 mg/dL Normal 0-200 [facility] Comment on above: Result Comment: ATP III Triglycerides Classification is Normal. Prostate Specific Ag Screeno n 03-04-2018 Prostate Specific Ag Screen 2.25 ng/mL Normal 0.00-3.89 [facility] Comment on above: Result Comment: When the Total PSA is between 3.00 and 10.00 ng/mL, considerrequesting a Free PSA to aid in diagnosis. TSH w/out Reflexon 8 Thyroid stimulating hormone (TSH) 2.550 uIU/mL Normal 0.270-4.20 [facility] Thyroxine Freeon 03-04-2018 Thyroxine Free 1.54 ng/dL Normal 0.93-1.70 [facility] Vital Signs Date Time Vital Sign Value Performing Clinician Facility 11-09-2024 16:35-0500 Body height 190.5 cm Everette Allenner DO Work Phone: [facility] 11-09-2024 16:35-0500 Body mass index (BMI) [Ratio] 34.37 kg/m2 Everette Buddy DO Work Phone: [facility] 11-09-2024 16:35-0500 Body weight 124.74 kg Everette Goodwin DO Work Phone: [facility] 11-09-2024 16:35-0500 Diastolic blood pressure 80 mm[Hg] Everette Buddy DO Work Phone: [facility] 11-09-2024 16:35-0500 Heart rate 84 /min Everette Buddy DO Work Phone: [facility] 11-09-2024 16:35-0500 SaO2% (BldA) [Mass fraction] 95 % Everette Buddy DO Work Phone: [facility] 11-09-2024 16:35-0500 Systolic blood pressure 126 mm[Hg] Everette Buddy DO Work Phone: [facility] 03-21-2019 15:41-0400 Respiratory rate 16 /min TITUS ONEILLY [facility] Comment on above: Performed By: #### 16204, 77401, 43877, 45128, 60943 #### [facility] [address] [place] [address], [facility] 03-21-2019 06:18-0400 Respiratory rate 16 /min TITUS ONEILLY [facility] Comment on above: Performed By: #### 62099, 82963, 68654, 55578, 58505 #### [facility] [address] [place] [address], [facility] 03-20-2019 15:18-0400 Respiratory rate 16 /min TITUS MAIY [facility] Comment on above: Performed By: #### 75874, 37673, 70129, 02780, 51266 #### [facility] [address] [place] [address], [facility] 03-20-2019 06:10-0400 Respiratory rate 16 /min TITUS MAIY [facility] Comment on above: Performed By: #### 35568, 82201, 27049, 67482, 85537 #### [facility] [address] [place] [address], [facility] 03-20-2019 01:22-0400 Respiratory rate 16 /min TITUS ONEILLY [facility] Comment on above: Performed By: #### 70129, 14740, 45455, 60357, 98772 #### [facility] [address] [place] [address], [facility] 03-19-2019 22:02-0400 Respiratory rate 16 /min TITUS NELLY [facility] Comment on above: Performed By: #### 33631 #### [facility] [address] [place] [address], [facility] 03-19-2019 20:06-0400 Respiratory rate 16 /min TITUS NELLY [facility] Comment on above: Performed By: #### 39399, 43024 ####[facility] 03-19-2019 18:48-0400 Respiratory rate 16 /min TITUS NELLY [facility] Comment on above: Order Comment: R/O Pulmonary Edema Performed By: #### 8 4511, 74421 ####[facility] [facility].[address] Encounters Encounter Date Encounter Type Care Provider Facility Start: 04-26-2025 End: 04-26-2025 ambulatory [facility] Start: 01-04-2025 End: 01-04-2025 ambulatory [facility] Start: 11-09-2024 End: 11-09-2024 Office outpatient new 45 minutes Everette Goodwin DO Work Phone: [facility] Comment on above: ZULEIMA (obstructive sle ep apnea) (Primary Dx); Shift work sleep disorder; Hypersomnia; Snoring; Obesity due to excess calories, unspecified class, unspecified whether serious comorbidity present Start: 11-09-2024 End: 11-09-2024 ambulatory EVERETTE GOODWIN Not Available Start: 11-09-2024 End: 11-09-2024 Bamboo flowsheet Everetterishabh Goodwin DO Work Phone: [facility] Start: 11-09-2024 End: 11-09-2024 Bamboo flowsheet Everette Goodwin DO Work Phone: [facility] Start: 02-05-2023 End: 02-06-[address] VIET SALAS Facility:[facility] Start: 12-19-2022 End: 12-20-[address] VIET SALSA Facility:[facility] Start: 11-09-2022 End: 11-10-[address] [...] abnormal findings DR TITUS VILLEGAS . [facility] Start: 04-05-2022 End: 04-06-[address] TITUS VILLEGAS . Facility:[facility] Start: 04-05-2022 End: 04-06-2022 Encounter for general adult medical examination without abnormal findings DR TITUS VILLEGAS . Facility:[facility] Start: 03-08-2022 End: 03-09-[address] MELIDA CUELLAR Facility:[facility] Start: 05-12-2019 End: 05-13-2019 Patient encounter procedure ILAN DANIELSON Facility:[facility] Start: 03-14-2019 End: 03-27-2019 Evaluation and management of inpatient TITUS VILLEGAS Facility:[facility] Procedures Date Procedure Procedure Detail Performing Clinician Start: 04-05-[address] MELIDA CUELLAR Comment on above: Performed By: #### P [facility] ####[facility] [id number] [place] [address]Dr. Leonie Beckham Start: 03-19-2019 DESTRUCTION OF CONDU [...] on above: Performed By: #### 0 0121, 61475, 50055, 44697, 27004 #### [facility] [address] [facility] [place] [address], [facility] Start: 03-16-2019 MEASURE CARDIAC SAMP L \T\ PRESSURE, BILATERAL, PERC [facility] DAY Start: 03-16-2019 FLUOROSCOPY OF LEFT HEART USING OTHER CONTRAST [facility] DAY Start: 03-16-2019 FLUOROSCOPY OF MULTI PLE CORONARY ARTERIES USING OTH CONTRAST [facility] DAY Start: 03-16-2019 Islam of Cardi ac Rhythm, Single ILAN DANIELSON Plan of Treatment Date Care Activity Detail Author Start: 11-09-2024 End: 11-09-2024 Patient encounter procedure 11/09/2024 4:30 PM EST Office Visit [facility] [address] [place] [id number] Everette Goodwin DO [address] [place] [address] Arrived [facility] Comment on above: Arrived Start: 05-31-2024 Influenza vaccination Influenza Vacc ine (#1) [facility] Start: 1965 Screening for malign ant neoplasm of colon [facility] Immunizations Immunization Date Immunization Notes Care Provider Fa cility 10-07-2021 influenza virus vacc ine, unspecified formulation Everette Goodwin DO Work Phone: [facility] Payers Date Payer Category Payer [facility] er [id number] 1965 Unknown [id number] .1.766578.3.579. 2.647 1965 Unknown [id number] 11.15.830.1.386804.3.579. 2647 1964 Unknown [id number] .1.161058.3.579. 2.59 1965 Unknown [id number] .0.1.159596.3.579. 2.59 1965 Unknown [id number] 840.1.414105.3.579. 2.593 1964 Unknown [id number] .840.1.207336.3.579. 2.593 1964 Unknown [id number] 2.16.840.1.621412.3.579. 2.593 1964 Unknown [id number] 2.16.840.1.649770.3.579. 2.593 1964 Unknown [id number] 2.16.840.1.493187.3.579. 2.593 1964 Unknown [id number] 2.16.840.1.062167.3.579. 2.593 1964 Unknown [id number] 2.16.840.1.612723.3.579. 2.593 1964 Unknown [id number] 2.16840.1.222854.3.579. 2.593 1964 Unknown [id number] 2.840.1.282197.3.579. 2.593 1964 Unknown [id number] 2.840.1.450997.3.579. 2.593 1964 Unknown [id number] 2.16840.1.567634.3.579. 2.593 1964 Unknown [id number] 2.16840.1.818466.3.579. 2.593 1964 Unknown [id number] 2.16840.1.116875.3.579. 2.593 1964 Unknown [id number] 2.840.1.282490.3.579. 2.593 1964 Unknown [id number] 2.16840.1.861576.3.579. 2.1259 1960 Self-pay 1960 Unknown [id number] Social History Date Type Detail Facility Tobacco smoking stat [facility] Tobacco smoking consumption unknown [facility] Start: 1965 Sex assigned at Not on file [facility] Start: 11-09-2024 Gender identity Not [facility] file [facility] Start: 11-09-2024 Tobacco smoking stat [facility] Never smoked tobacco [facility] Start: 11-09-2024 Tobacco use and exposure Smokeless t obacco non-user [facility] Start: 11-09-2024 History of Social function [facility] Progress note 04-26-2025 Note Date & Type Note Facility 04-26-2025 Note [place] [facility] - [facility] Subjective Tracie Crain is a 60 y.o. year old male patient being seen for 3 month follow up with Echo. Patient denies chest pain, SOB,, leg pain or palpitations. Patient states he has SCHILLING, leg swelling, fatigue and cough Patient Active Problem List Diagnosis Right-sided heart [...] result of cardiovascular function study, unspecified Cardiomegaly Mild left ventricular hypertrophy Elevated right ventricular end-diastolic pressure Heart failure with improved ejection fraction (HFimpEF) (CMS/HCC) Family History Problem Relation Name Age of Onset Atrial fibrillation Mother Alzheimer's disease Mother Social History Tobacco Use Smoking status: Never Smokeless tobacco: Never Substance Use Topics Alcohol use: Not Currently Drug use: Never HPI Tracie is seen in follow-up. Visit [...] When compared with ECG of 21-MAR-2019 20:42, [place] interval has decreased, Vent. rate has increased [...] posterior mitral valve prolapse. Severe mitral regurgitation. Eviden (more content not included)... [facility] Progress note 01-04-2025 Note Date & Type Note Facility 01-04-2025 Note [place] [facility] - [facility] Subjective Tracie Crain is a [...] When compared with ECG of 21-MAR-2019 20:42, [place] interval has decreased, Vent. rate has increased [...] patient was conve (more content not included)... [facility] History of Present illness Narrative 11-09-2024 Everette Goodwin DO - 11/09/2024 4:30 PM EST Note Date & Type Note Facility 11-09-2024 History of Presen t illness Narrative Images from the original note were not included. Chief Complaint Patient presents with Sleep Apnea Subjective Anil [place], 59 y.o., male HPI The patient states [...] 4.5 years old. He got it from [employer] which is now [facility]. NO other new [...] was counseled on the risks of stroke, [place], and sudden with ZULEIMA, along with the [...] a new machine documented in this encounter [facility] Clinical Note 11-29-2020 Note Date & Type [...] vaccine, inactivated - Not Given Patient Refuses [facility] Comment on above: Result Comment: Elec tronically Signed By: Tracie WOODY MD\.br\Date and Time Signed: 11/29/20 14:05 EST Evaluation note Note Date & Type Note Facility Evaluation note Diagnosis ZULEIMA (obstructive sleep apnea)- [...] Records Found Hospital Course Note MR#: [id number] [facility] Pt. Name: Tracie Crain Admitted: 03/14/2019 Discharged: 03/27/2019 Date of : 1965 Physician: Timbo Black MD DISCHARGE SUMMARY HISTORY: This is a 53-year-old male who was transferred from [facility] for further management of new-onset atrial fibrillation and systolic heart failure. Over the past 2 weeks, he had been having symptoms of lower extremity swelling. He denied chest pain and was very short of breath according to the . At [facility], he was noted to have severe pulmonary venous congestion and was transferred to [facility] after echocardiogram revealed reduced left ventricular [...] section and content) DATE CREATED AUTHOR 03/18/2018 [facility] DATE CREATED AUTHOR AUTHOR'S ORGANIZ ATION 03/02/2020 [facility] DATE CREATED AUTHOR AUTHOR'S ORGANIZ ATION 02/12/2021 [facility] DATE CREATED AUTHOR AUTHOR'S ORGANIZ ATION 02/10/2023 [facility] DATE CREATED AUTHOR AUTHOR'S ORGANIZ ATION 11/11/2024 [facility] EPIC DATE CREATED AUTHOR AUTHOR'S ORGANIZ ATION 07/11/2025 [facility] Care Teams (unrecognized sec tion and content) Computer Bookkeeper Relationship Specialty Start Date End Date Titus Villegas MD [address] [place] [address] PCP - General Family Medicine 11/09/24 Computer Bookkeeper Relationship Specialty Start Date End Date Titus Villegas MD [address] [place] [address] PCP - General Family Medicine 11/09/24 Reason [...] BE BASED ON THE PRIMARY CLINICAL RECORDS. [facility]. provides no warranty or guarantee of the accuracy or completeness of information in this document.
[2025-07-19 14:48] LABS: Hematocrit 46.6 % (42.0-54.0); Hemoglobin 15.5 g/dL (14.0-18.0); Immature Granulocytes Abs Auto 0.05 10^3/uL (0.00-0.03); Immature Granulocytes Pct Auto 0.5 % (0.0-0.5); Lymphocytes Absolute Auto 2.4 10^3/uL (1.2-3.8); Mean Corpuscular HGB Conc 33.3 g/dL (29.9-35.2); Mean Corpuscular Hemoglobin 30.9 pg (25.9-34.0); Mean Corpuscular Volume 92.8 fL (80.0-94.0); Platelet Count 235 10^3/uL (150-450); Red Blood Count 5.02 10^6/uL (4.70-6.10); White Blood Count 9.8 10^3/uL (4.0-11.0)
[2025-07-19 14:57] LABS: Anion Gap 13.9; Blood Urea Nitrogen 28.0 mg/dL (7.0-18.0); Calcium 9.2 mg/dL (8.5-10.1); Carbon Dioxide 30.0 mmol/L (21.0-32.0); Chloride 99 mmol/L (98-107); Estimated GFR (African America 59 (>=60 mL/min/1.73m^2); Estimated GFR (Non-African Ame 49 (>=60 mL/min/1.73m^2); Glucose 127 mg/dL (74-106); Potassium 3.9 mmol/L (3.5-5.1); Sodium 139 mmol/L (136-145)
== END 2025-07-19 14:22 | disposition home or self-care (01) ==
LOC: LAB 14:23
PROVIDERS: PCP Family Medicine; Visit Provider Internal Medicine Interventional Cardiology
DX: I50.32 Chronic diastolic (congestive) heart failure (principal); Q21.10 Atrial septal defect, unspecified
CPT/HCPCS: 36415; 80048; 85025

== ENCOUNTER 2025-08-25 09:46 | Outpatient (OUT) | payer BC, SELFPAY ==
--- OUTSIDE RECORDS SUMMARY | 2025-08-12 14:20 | XMS_ITS | Encounter Summary ---
Author Organization [facility] Address [address] [place] [address] Care Team Providers Care Gluing Machine Operator Name Role Phone Raymundo Vela MD Primary Care Provider [phone] Reason for Referral * Imaging (Routine) - Pending ReviewSpecialtyDiagnoses / ProceduresReferred By ContactReferred To ContactCardiology Diagnoses ASD (atrial septal defect) S/P percutaneous closure of atrial septal defect Procedures Transthoracic echo (TTE) complete Pamela Ohara CNP [address] [place] [address] Phone: tel: fax: Referral IDStatusReasonStart DateExpiration DateVisits RequestedVisits [id number] Review Perform Procedure Reason for Visit * ReasonCommentsAtrial Septal DefectPatient here for 2 week follow up s/p ASD repair.EdemaNo more than usual for him. Encounter Details DateTypeDepartmentCare Team (Latest Contact Info)Ocranwmtorn75/13/2025 2:20 PM ESTOffice Visit [facility] [place] [address] [place] [address] Pamela Ohara CNP [address] [place] [address] ASD (atrial septal defect) (Primary Dx); S/P percutaneous closure of atrial septal defect; Heart failure with improved ejection fraction (HFimpEF) (CMS/HCC); Chronic right-sided congestive heart failure (CMS/HCC); Paroxysmal atrial fibrillation (CMS/HCC); Status post mitral valve repair Social History Tobacco UseTypesPacks/DayYears UsedDateSmoking Tobacco: NeverSmokeless Tobacco: NeverAlcohol UseStandard Drinks/WeekCommentsNot Currently0 (1 standard drink = 0.6 oz pure alcohol)[facility] UtilitiesAnswerDate RecordedIn the past 12 months has the [employer], [employer], oil, or water Coordi-Care's threatened to shut off services in your home?No07/26/2025Humiliation, Afraid, Rape, and Kick questionnaireAnswerDate RecordedWithin the last year, have you been afraid of your partner or ex-partner?No07/26/2025Emotionally AbusedNot on file07/26/2025Physically Abused Not on file07/26/2025Sexually AbusedNot on file07/26/2025Overall Financial Resource Strain (CARDIA)AnswerDate RecordedHow hard is it for you to pay for the very basics like food, housing, medical care, and heating?Not hard at all 07/26/2025UT Safety & EnvironmentAnswerDate RecordedFear of Current or Ex-PartnerNot on file11/21/2023Emotionally AbusedNot on file11/21/2023hysically AbusedNot on file11/21/2023Sexually AbusedNot on file11/21/2023hysically or Sexually AbusedNot on file11/21/2023TransportationAnswerDate RecordedIn the past 12 months, has lack of transportation kept you from medical appointments or from getting medications?No07/26/2025Lack of Transportation (Non-Medical)Not on file 07/26/2025Housing Stability Vital SignAnswerDate RecordedIn the last 12 months, was there a time when you were not able to pay the mortgage or rent on time?No 07/26/2025Number of Times Moved in the Last YearNot on file07/26/2025t any time in the past 12 months, were you homeless or living in a usp (including now)? No10/27/2025Hunger Vital SignAnswerDate RecordedWithin the past 12 months, you worried that your food would run out before you got the money to buymore.Never true07/26/2025Ran Out of Food in the Last YearNot on file07/26/2025 CommentsNoSex and Gender InformationValueDate RecordedSex Assigned at BirthMale 07/27/2025 9:42 AM EDTLegal SykEtsp8203/29/2022 12:15 AM EDTGender IdentityMale 07/27/2025 9:42 AM EDTSexual OrientationHeterosexual or Wevlqsry41/27/2025 6:57 AM EDTdocumented as of this encounter Last Filed Vital Signs Vital SignReadingTime TakenCommentsBlood Ghpguoxh145/6808/12/2025 2:14 PM EST Xxjjh88005/13/2025 2:14 PM ESTTemperature--Respiratory Rate--Oxygen Saturation 95%08/12/2025 2:14 PM ESTInhaled Oxygen Concentration--Hflahs550 kg (305 lb) 08/12/2025 2:14 PM OUKLitobt958.5 cm (6' 3 )08/12/2025 2:14 PM ESTBody Mass Index38.12110/12/2024 2:14 PM ESTdocumented in this encounter Progress Notes * Pamela Ohara, BENITO - 08/12/2025 2:20 PM EST Images from the original note were not included. [place] [facility] Subjective Lul Koch is a 60 y.o. year old adult Atrial Septal Defect (Patient here for 2 week follow up s/p ASD repair. ) and Edema (No more than usual for him.) Patient Active Problem List Diagnosis Right-sided heart [...] regurgitation Chronic right-sided congestive heart failure (CMS/HCC) Secundum ASD Abnormal result of cardiovascular function study, unspecified Cardiomegaly Mild left ventricular hypertrophy Elevated right ventricular end-diastolic pressure Heart failure with improved ejection fraction (HFimpEF) (CMS/HCC) Chronic systolic heart failure (CMS/HCC) Other specified postprocedural states Sinusitis Sleep apnea Family History Problem Relation Name Age of Onset Atrial fibrillation Mother Alzheimer's disease Mother Social History Tobacco Use Smoking status: Never Smokeless tobacco: Never Substance Use Topics Alcohol use: Not Currently Drug use: Never Edema Associated symptoms include cough (occasional). Lul is seen in follow-up. Visit of 04/27/2019: [...] lower extremity edema is getting worse recently. Hehas no significant chest pain other than the [...] rate = 95 bpm. Elevated gradient is partiallydue to tachycardia. Thi study was compared to [...] He was in atrial flutter/fib at follow upvisit with CT surgery and he then underwent GERMAN/Cardioversion. He has been doing better since then. Today's ECG showed sinus rhythm at 72 bpm. He says he can do most of activities without dyspnea. He has lost weight. He has no dizziness and no lightheadedness. His blood pressure has been on the low side. ECG 05/25/2019: NSR, RBBB, 72 bpm. Echocardiogram 05/06/2019: Global left ventricular systolic function is mildly to moderately reduced (Visually estimated EF 35%). The left ventricle is small in size. Left ventricular wall thickness is normal. The septum is abnormal in its motion, not unusal finding in the post open heart patient. Right ventricular systolic function appears reduced. The right ventricle is enlarged. The left atrium is moderately enlarged. The posterior leaflet is markedly thickened and immobile. The anterior leaflet is thickened.. An annuloplasty ring is well seated in the mitral annulus.. Trivial mitral regurgitation. There is failure of central coaptation of the tricuspid valve leaflets. Doppler velocity underestimates pulmonary artery pressure due to equalization of right atrial and ventricular pressures from wide open TR.. Due to suboptimal imaging Definity contrast was administered for opacification and better delineation of endocardial borders. Compared to the prior transthoracic echocardiogram of 03/24/19 severity of tricuspid regurgitation has increased from mild to wide open and right ventricular systolic function is decreased. Left ventricular ejection fraction has decreased from 50% to 35%. GERMAN 05/12/2019: Global left ventricular systolic function is moderately reduced (Visually estimated EF 35%). The left ventricle is normal size. Left ventricular wall thickness is normal. No left ventricular hypertrophy. There is an atrial septal defect. No thrombus in left atrium. Mild to moderate mitral stenosis. Mild mitral regurgitation. Mild aortic valve regurgitation. Severe tricuspid regurgitation. - Mild to moderate mitral stenosis with a mean gradient of 7 mm Hg. However patient is in atrial flutter and hence this may be overestimated - There is an atrial septal defect with significant biderectional flow on color doppler - Evidence of left atrial appendage exlusion from prior AtriClip device. No Left atral thrombus - Successfull DC cardioversion to sinus rhythm with 200 Joules Update 06/29/2019: He is seen in follow-up. At last visit here was in sinus rhythm after the cardioversion. I increased Lasix to 40 minimum in a.m. and 20 mg in p.m. due to shortness of breath. He was seen in follow up by CT surgery recently. He is currently taking metoprolol succinate 50 mg bid and lasix 40 mg twice daily. He has been doing well. He has no chest pain. He has no shortness of breath. His lower extremity edema is much improved. He does not feel palpitations. Echocardiogram 06/16/2019: Global left ventricular systolic function is normal (Visually estimated EF 55-60%). The left ventricle is normal size. Left ventricular wall thickness is normal. Concentric cardiac remodeling. The septum is abnormal in its motion, not unusal finding in the post open heart patient. Unable to assess diastolic dysfunction. The left atrium is mildly enlarged. The right atrium is moderately enlarged. An annuloplasty ring is seen in the mitral position. No mitral regurgitation. Slightly elevated doppler gradient. Mean 8.5 mmHg. Mild tricuspid regurgitation. Doppler studies suggest mildly elevated right sided pressures. RVSP 41 mmHg. Update 08/17/2019: He is seen in follow up. Since last vist he was admitted to [facility] 08/12- with UTI, GINNA, and decompensated HF. He was treated accordingly. He feels better now. No chest pain. He has no dyspnea. No palpitations. Testing at [facility]: ECG 08/12/2019: sinus rhythm BMP 08/14/2019: BUN 19, Cr 1.49. NTproBNP 2248 down from 5500. Echocardiogram 08/13/2019: Global left ventricular systolic function is normal. Moderate concentric left ventricle hypertrophy. D-shaped septum consistent with right ventricular pressure and/or volume overload. Biatrial enlargement. Right ventricle is mildly dilated with preserved systolic function. Severe tricuspid regurgitation. Moderately elevated right-sided pressures. Evidence of the previously placed mitral valve annuloplasty ring; velocities across the mitral valve are consistent with moderate mitral stenosis (mean gradient 7 mmHg). There is significant mitral annular calcification and thickening of the mitral leaflets. Update 11/02/2019: He is seen in follow up. Since last visit in July 2019 he has been doing reasonably well. No admissions to the hospital. No chest pain, no palpitations. He has mild lower extremity edema. He has shortness of breath on moderate exertion, NYHA class II-III. He feels sluggish and tired. BMP 09/03/2019: Creatinine 1.5, BUN 23, potassium 4.6 Update 05/18/2020: He is seen in follow up via telemedicine. He has been well with no significant chest pain or dyspnea. He has some lower extremity edema. He has good exercise tolerance. He is planned to have a sleep study in the next few days. No palpitations. Echocardiogram 11/19/2019: Global left ventricular systolic function is normal (Visually estimated EF 60-65%). Normal right ventricular systolic function. The right ventricle is severely enlarged. The left atrium is moderately enlarged. The right atrium is severely enlarged. Mitral anterior leaflet is thickened with good mobility and the thickened posterior leaflet appearsto be in a fixed position. An annuloplasty ring is seen in the mitral position with abnormally high Doppler flows. Moderate mitral valve stenosis. Trivial mitral regurgitation. Mild-moderate tricuspid regurgitation. Doppler studies suggest moderately elevated right sided pressures (elevated pulmonary pressure). ECG 02/29/2020: Normal sinus rhythm; Right superior axis deviation Update 09/05/2020: He is seen in follow-up. He has been doing well. He has no chest pain, no shortness of breath. Chest. His only complaint is lower extremity swelling which is also the left. He has not been wearing his compression stockings. He continues to take Lasix 20 mg daily. In May [address] Black from CT surgery and was recommended follow-up and no additional surgical intervention EKG 06/14/2020: Sinus rhythm Update 02/01/2021: He is seen in follow-up. Recently he was admitted in December 2020 to the [facility] with decompensated heart failure. He underwent diuresis. He improved. His investigation included an echocardiogram that showed evidenceof severely elevated right-sided pressures, and severely dilated right-sided chambers with severelyreduced right ventricular systolic function. Also there were severely increased gradients across the mitral valve. He reports that he has been feeling better. His shortness of breath has improved. He is currently in NYHA class II-III. He still has lower extremity edema but that is improved. Blood testing 01/20/2021: Hemoglobin 14, platelets 215, potassium 3.4, BUN 17, creatinine 1.15, LFTsnormal, NT proBNP 4800. CT angiogram of the chest 01/20/2021: No pulmonary embolism, mild bibasilar infiltrates versus pulmonary edema. Echocardiogram 01/19/2021: LV systolic function hyperdynamic, EF 70%, D-shaped septum consistent with right ventricular pressure and/or volume overload. Mild concentric left ventricular hypertrophy, biatrial enlargement, the right ventricle is severely dilated with severely reduced systolic functionand relative sparing of the apex suggestive of Orr sign, consider pulmonary embolus as clinically appropriate. Moderate tricuspid regurgitation, severely elevated right-sided pressures, elevated velocities across the mitral valve suggestive of severe mitral stenosis. Mitral valve mean gradient 16 mmHg. Update 04/17/2021: He is seen in follow-up. After last visit and based on the above echo result I increased Lasix to 80 mg twice daily. He feels better after that. He has lost 9 pounds. He still is short of breath, NYHA class II-III. No chest pain. No palpitations. Blood testing 03/21/2021: NT proBNP 3575, BUN 18, creatinine 1.13, potassium 3.8. Echocardiogram 03/21/2021: LV systolic function is normal, visually estimated LVEF is 55 to 60%. D-shaped septum consistent with right ventricular pressure and/or volume overload. Diastolic dysfunction. Moderate to severe biatrial enlargement. RV is severely enlarged with severely reduced systolic function. Moderate tricuspid regurgitation. Severely elevated right-sided pressures. Moderate to severe mitral valve stenosis. Mild mitral regurgitation. Update 06/12/2021: He is seen in follow-up. At last visit and due to severely elevated right-sided pressures, right ventricular dysfunction andenlargement on echocardiography, I increased Lasix to 80 mg twice daily (from 80 and 40 mg daily). Today he reports that he has been doing better. Lower extremity edema has significantly improved. He has no chest pain. No palpitations. No dizziness. He reports that he has been having weight gainlikely from bad diet. He has dyspnea on exertion, NYHA class II Blood testing 06/02/2021: Potassium 3.4, BUN 20, creatinine 1.26, NT proBNP 1612. Update 09/26/2021: He is seen in follow-up. At last visit I kept Lasix 80 mg twice daily, stopped hydralazine and added lisinopril 5 mg daily. He has been complaining of dry cough. Otherwise he has no chest pain. He has dyspnea on exertion, NYHA class II. He has lower extremity edema that varies depending on the time of day. No palpitations. Blood testing 09/21/2021: NT proBNP 1399, potassium 4.3, BUN 25, creatinine 1.37. eGFR 54. Update 11/19/2022: He is seen in follow-up. He was recently evaluated in cardiology clinic because of worsening lower extremity edema. An echocardiogram showed dilated and dysfunctional right ventricle with severely elevated right-sided pressures. He is currently on Lasix 80 mg in the morning, 40 mg at noon and 80 mg in the evening. In addition he takes spironolactone 25 mg twice daily. He is not very active physically. He does have leg swelling. He says he has shortness of breath on exertion but he does not exercise himself. He does not feel palpitations. No dizziness or lightheadedness. Update 02/11/2023: He is seen in follow-up. At last visit I changed Lasix to bumetanide for better response to diuretic therapy. His recent echocardiogram showed persistently elevated pulmonary hypertension with an RVSP of 75 mmHg, moderate severe tricuspid regurgitation and evidence of right ventricular pressure and volume overload. Today he reports that he has shortness of breath on exertion, NYHA class II. He has significant lower extremity edema that has improved slightly. He also had several interventions to his varicose veins. No chest pain. Update 04/08/2023: He is seen in follow-up. after last visit I increased the bumetanide dosage. He is now on 2 mg 3 times daily. He improved. He has much less leg swelling. Shortness of breath on exertion has improved significantly. His echocardiogram showed improvement in RVSP to 54 mmHg. Update 10/23/2023: He is seen in follow-up. He is currently taking bumetanide 2 mg 3 times daily with spironolactone 25 mg twice daily. He reports that the leg extremity swelling and the shortness of breath are still about the same. His recentechocardiogram showed elevated right- sided pressures with a RVSP around 60 mmHg. His blood pressure is low but he denies dizziness or lightheadedness. He has no chest pain and no palpitations. Visit of 01/24/2024: He is seen in follow-up. At last visit I stopped losartan due to low blood pressure. I increased spironolactone to 25 mg 3 times daily. Today he reports that he continues to have lower extremity edema and shortness of breathon exertion NYHA class II symptoms. A follow-up echocardiogram yesterday showed evidence of severe tricuspid regurgitation with reducedright ventricular systolic function and severely elevated right-sided pressures. Visit of 03/26/2024: He is seen in follow-up. After last visit I proceeded with right heart catheterization and transesophageal echocardiogram. The right heart catheterization confirmed presence of significant [id number] shunt across the ASD.The ASD was visualized by the transesophageal echocardiogram. He did have elevated filling pressures and elevated pulmonary arterial pressures. His Bumex was increased to 3 mg twice daily. Today he reports that he continues to have symptoms of shortness of breath on exertion. Visit of 06/26/2024: He is seen in follow-up. After last visit I proceeded with further testing of the ASD with balloon occlusion. This showed elevation of the left sided filling pressures during balloon occlusion of the ASD indicating that the ASD was acting as a relief of left-sided pressures. Because of the high risk of causing left-sided heart failure exacerbation I decided not to proceed with closure of the ASD. Today he reports that he has been doing well on the current medical therapy. He does have lower extremity edema and shortness of breath but those are improved. His leg edema varies during the day. Hehas tried wearing compression stockings. He is currently on very high doses of diuretic therapy. Visit of 01/04/2025: He is seen in follow-up. After last visit I referred him to undergo lymphedema therapy. Today he reports that he did undergo the lymphedema therapy for a period of time and it helped a little bit but not much. He continues to have shortness of breath on exertion NYHA class II-III symptoms and bilateral lowerextremity swelling that waxes and wanes. He continues to be on high-dose diuretic therapy. His recent echocardiogram showed severely elevated right-sided pressures with an RVSP of 68 mmHg. Otherwise he denies chest pain, dizziness or lightheadedness. Visit of 04/26/2025: He is seen in follow-up. At last visit 01/04/2025 I added hydrochlorothiazide 25 mg once daily and increased potassium chloride to 20 mEq 3 times daily. Following that I checked a BMP on 01/18/2025 that showed worsening renal function and I had him reduce the hydrochlorothiazide to half tablet once daily. Follow- up BMP in January 2025 showed normalizationof potassium and renal function. An echocardiogram was performed on 04/15/2025 that showed severely elevated right-sided pressures with an RVSP of 75 mmHg and moderate to severe tricuspid regurgitation. He continues to have shortness of breath on exertion NYHA class II-III symptoms and bilateral lowerextremity edema that varies depending on days. He is able to function and go to work but he feels tired. No chest pain and no palpitations. 08/12/2025 Since last seen he underwent a ASD closure. He has been doing well since his procedure. He feels like he has a little more energy than before. Leg swelling is stable, may be slightly better. Denies c/o CP, dyspnea, orthopnea, PND, LE edema, dizziness/LH, palpitations, syncope. Objective Visit Vitals BP 108/68 (BP Location: Left arm, Patient Position: Sitting) Pulse 102 Ht 1.905 m (6' 3 ) Wt (!) 138 kg (305 lb) SpO2 95% BMI 38.12 kg/m?? OB Status Postmenopausal Smoking Status Never BSA 2.7 m?? Physical Exam Constitutional: Appearance: He is well-developed. [...] Skin: General: Skin is warm and dry. Comments: Right groin cath access site soft, nontender, no hematoma, no drainage Neurological: General: No focal deficit present. Mental Status: He is alert and oriented to person, place, and time. Psychiatric: Mood and Affect: Mood normal. Behavior: Behavior is cooperative. Judgment: Judgment normal. Allergies No Known Allergies Medications Current Outpatient Medications: aspirin 81 mg EC tablet, Take 1 tablet (81 mg) by mouth once daily as directed., Disp: 90 tablet, Rfl: 3 bumetanide (Bumex) 2 mg tablet, Take 1.5 tablets (3 mg) by mouth three times daily., Disp: 405 tablet, Rfl: 3 clopidogrel (Plavix) 75 mg tablet, Take 1 tablet (75 mg) by mouth in the morning., Disp: 90 tablet,Rfl: 1 ferrous sulfate 325 (65 Fe) MG tablet, Take 325 mg by mouth two times daily., Disp: , Rfl: hydroCHLOROthiazide 12.5 mg tablet, Take 1 tablet (12.5 mg) by mouth in the morning., Disp: 90 tablet, Rfl: 0 levothyroxine (Synthroid, Levoxyl) 50 mcg tablet, Take 1.5 tablets (75 mcg) by mouth in the morning., Disp: 45 tablet, Rfl: 0 liothyronine (Cytomel) 5 mcg tablet, Take 5 mcg by mouth in the morning., Disp: , Rfl: metoprolol succinate XL (Toprol-XL) 50 mg 24 hr tablet, Take 1 tablet (50 mg) by mouth once daily as directed., Disp: 90 tablet, Rfl: 3 potassium chloride CR (Klor-Con M20) 20 mEq ER tablet, Take 1 tablet (20 mEq) by mouth three times daily. Do not crush or chew., Disp: 270 tablet, Rfl: 3 sertraline (Zoloft) 50 mg tablet, Take 50 mg by mouth in the morning., Disp: , Rfl: spironolactone (Aldactone) 25 mg tablet, Take 1 tablet (25 mg) by mouth three times daily., Disp: 270 tablet, Rfl: 3 Recent Labs Admission on 07/26/2025, Discharged on 07/27/2025 Component Date Value Ventricular Rate 07/26/2025 83 Atrial Rate 07/26/2025 83 NC Interval 07/26/2025 188 QRS DURATION 07/26/2025 110 QT Interval 07/26/2025 416 QTC CALCULATION(BAZETT) 07/26/2025 488 P [place] 07/26/2025 63 R-[place] 07/26/2025 192 T Wave [place] 07/26/2025 52 O2Hb% 07/26/2025 65.3 (L) O2Hb% 07/26/2025 61.1 (L) O2Hb% 07/26/2025 73.3 (L) O2Hb% 07/26/2025 71.9 (L) O2Hb% 07/26/2025 72.4 (L) Activated Clotting Time 07/26/2025 280 (H) O2Hb% 07/26/2025 91.8 Activated Clotting Time 07/26/2025 284 (H) O2Hb% 07/26/2025 90.3 Activated Clotting Time 07/26/2025 315 (H) Activated Clotting Time 07/26/2025 347 (H) O2Hb% 07/26/2025 70.5 (L) O2Hb% 07/26/2025 94.5 Activated Clotting Time 07/26/2025 259 (H) Activated Clotting Time 07/26/2025 290 (H) Activated Clotting Time * 07/26/2025 237 (A) Activated Clotting Time 07/26/2025 237 (H) Activated Clotting Time * 07/26/2025 178 (A) Activated Clotting Time 07/26/2025 185 (H) Ventricular Rate 07/27/2025 86 Atrial Rate 07/27/2025 86 NC Interval 07/27/2025 174 QRS DURATION 07/27/2025 106 QT Interval 07/27/2025 396 QTC CALCULATION(BAZETT) 07/27/2025 473 P [place] 07/27/2025 39 R-[place] 07/27/2025 208 T Wave [place] 07/27/2025 54 Blood testing 02/16/2025: Potassium 3.8, BUN 24, creatinine 1.16, EGFR more than 60. Blood testing 01/18/2025: Potassium 3.3, BUN 30, creatinine 1.4, EGFR 52. Blood testing 10/15/2024: Hemoglobin 14.5, platelets 236, potassium 3.8, BUN 21, creatinine 1.13, EGFR more than 60, hemoglobin A1c 5.8%, LFTs normal, triglycerides 75, cholesterol 151, LDL 89, HDL 47, TSH 4.3, normal T4 and free T3. Blood testing 03/05/2024: potassium 3.6, BUN 19, Creatinine 1.24, eGFR 60. Blood testing 11/11/2023: K 4.0, BUN 21, Cr 1.29, eGFR 57. Blood testing 10/04/2023: Potassium 3.8, BUN 26, creatinine 1.28, EGFR 58, TSH 3.58, T46.4, free T32.41. Blood testing 08/29/2023: Hb 14.6, Platelets 214, potassium 4.3, BUN 28, creatinine 1.5, EGFR 48, hemoglobin A1c 5.9, LFTs normal, triglycerides 97, cholesterol 153, LDL 95, HDL 39. Blood testing 03/01/2023: Potassium 3.8, BUN 24, creatinine 1.35, EGFR 54. Blood testing 12/19/2022: Potassium 3.9, BUN 25, creatinine 1.17, EGFR more than 60, NT proBNP 859. Blood testing 04/05/2022: Hemoglobin 13.9, platelets 203, potassium 4.0, BUN 24, creatinine 1.33, EGFR 55, LFTs normal, HDL 40, cholesterol 137, triglycerides 65, LDL 84. Imaging and other tests ECHO 07/27/2025 Left Ventricle: The left ventricle is normal size. Global left ventricular systolic function is at lower limits of normal. The EF is 50 % visually. Left ventricular wall thickness is normal. The septum is abnormal in its motion, not unusal finding in the post open heart patient. Unable to assess diastolic dysfunction due to presence of prosthetic mitral annulus. Right Ventricle: The right ventricle is severely enlarged. Right ventricular systolic function appears normal. Doppler studies suggestmildly elevated right sided pressures. Left Atrium: The left atrium is mildly enlarged. ASD closuredevice is noted, well seated, no residual shunt by color flow Right Atrium: The right atrium is severely enlarged. Mitral Valve: Mitral ring visualized with elevated mean gradient of 11 mmHg and mildregurgitation. Aortic Valve: Mild aortic valve regurgitation. Tricuspid Valve: Severe tricuspid regurgitation seen best on Lumason imaging. Severe tricuspid regurgitation. Pericardium: No pericardial effusion. 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 Mildly elevated right filling pressures. Normal left-sided filling pressures. Moderate pulmonary hypertension with moderately elevated pulmonary vascular resistance at 3.0 Wood units. No aortic valve stenosis. Absence of significant elevation of left-sided filling pressures after balloon occlusion test of the atrial septal defect. Plan: Aspirin 81 mg daily for life. Dual antiplatelet therapy with Aspirin 81 mg daily for life and Clopidogrel 75 mg daily for 6 months. The patient will be observed in-hospital overnight. The patient will get an EKG, chest x-ray (PA and lateral) and echocardiogram in the morning before discharge. Endocarditis prophylaxis for 6 months after percutaneous ASD closure. Follow-up in cardiology clinic in 1 month with echocardiogram. John Salas MD Echocardiogram 04/15/2025: 1. Global left systolic function is normal; visually estimated ejection fraction is 55%. 2. D-shaped septum consistent with right ventricular pressure and/or volume overload. 3. Mild left ventricular hypertrophy. 4. The right ventricle is severely dilated with reduced systolic function. 5. Biatrial dilatation. 6. Moderate to severe tricuspid regurgitation. 7. Severely elevated right-sided pressures; RVSP 75 mmHg. 8. Mitral anoplasty ring seen with elevated Doppler flows; posterior leaflet of the mitral valve appears restricted in motion. Mean mitral valve gradient 8.1 mmHg. 9. Mild mitral regurgitation. Echocardiogram 12/25/2024: CONCLUSION: 1. Normal left ventricular size and systolic function. Estimated LVEF is 55 to 60%. 2. Moderately dilated right ventricle with mildly reduced systolic function. 3. Severe biatrial dilatation. 4. Mitral valve status post ring repair with elevated Doppler flow. Mean diastolic gradient 7.6mmHg. 5. Mild to moderate tricuspid regurgitation. 6. Severely elevated right-sided pressures. RVSPis 68 mmHg. Cardiac catheterization 05/05/2024: Impression/Findings: Mild to moderate elevation of left filling pressures. Moderate elevation of right filling pressures. Severe pulmonary hypertension. Normal cardiac output and cardiac index. Presence of significant [id number] shunt at the atrial septal level [The [...] medical therapy. Follow up in Cardiology Clinic. ECG 05/05/2024: Sinus rhythm with occasional Premature ventricular complexes Right superior axis deviation Pulmonary disease pattern Incomplete right bundle branch block Right ventricular hypertrophy Prolonged QT Abnormal ECG Right heart catheterization 02/28/2024: Hemodynamic Data: RA: 17 RV: 55/7, 19 PA: 55/25 (37) PCWP: 21 Qs: 4.73 Qsi: 1.75 Qp: 8.17 Qpi: 3.02 O2 Sat: PA sat: 74%, AO sat: 96%, PW sat: 96%, SVC sat: 56%, IVC sat: 65%, high RA sat: 65%, mid RAsat: 69%, low RA sat: 71%, RV sat: [...] week. Follow up in Cardiology Clinic. The patient will be reviewed for suitability for atrial septal defect closure. GERMAN 02/28/2024: Left Ventricle: The left ventricle is normal size. Global left ventricular systolic function is normal. The EF is 55 % visually. Right Ventricle: The right ventricle is severely enlarged. Severely reduced right ventricular systolic function. Doppler studies suggest moderately elevated right sided pressures (elevated pulmonary pressure). Left Atrium: The left atrium is moderately enlarged. Right Atrium: The right atrium is severely enlarged. Mitral Valve: S/P MV repair. Mitral annuloplasty is noted.. Trivial mitral regurgitation. Mild to moderate mitralvalve stenosis. Mitral Valve Measurements MV Vmean: 0.96 m/s. MV PGmax: 16.00 mmHg. MV PGmean: 6.00 mmHg. Tricuspid Valve: Severe tricuspid regurgitation. Echocardiogram 01/23/2024: Global left ventricular systolic function is normal. Visually estimated ejection fraction is 55 to 60%. The right ventricle is severely dilated with decreased systolic function. Severe biatrial enlargement. Severe tricuspid regurgitation. Severely elevated right ventricular systolic pressure, RVSP 75 mmHg. Mitral annuloplasty ring is seen, elevated velocities and mean gradient of 6.4 mmHg is seen. Echocardiogram 10/18/2023: Left ventricular systolic function is normal, LVEF is 55 to 60%. Moderately dilated right ventriclewith preserved systolic function. Severe biatrial dilatation. Mitral valve status postrepair with elevated Doppler flows [mean gradient 6.9 mmHg at a heart rate of 84 bpm]. Trivial mitral regurgitation. Moderate tricuspid regurgitation. Severely elevated right-sided pressures. RVSP is 60 mmHg. Echocardiogram 04/03/2023: LV systolic function is normal, EF 55 to 60%, severe biatrial enlargement,right ventricle is moderately dilated with normal systolic function, mild to moderate tricuspid regurgitation, moderately elevated right ventricular systolic pressure, RVSP 56 mmHg, and annuloplasty ring is seen in the mitral position with abnormally high Doppler flows, mild mitral regurgitation. Valvular structures are poorly seen. Echocardiogram 02/05/2023: Global left ventricular systolic function is normal, visually estimated ejection fraction is 60 to 65%, D-shaped septum consistent with right ventricular pressure and/or volume overload, severe biatrial enlargement, the right ventricle is severely dilated with significantlyreduced systolic function, moderate to severe tricuspid regurgitation, severely elevated right-sided pressures, RVSP 75 mmHg, mitral valve ring is seen with elevated velocities, moderate mitral valvestenosis, mild mitral regurgitation. Echocardiogram 11/09/2022: Left ventricular is normal in size with normal systolic function, LVEF is55 to 60%. Moderate to severe right ventricular dilatation with reduced systolic function. Mitral valve status post ring repair with mildly increased Doppler flows consistent with mild stenosis. Moderate tricuspid regurgitation. Severely elevated right-sided pressures. Severe biatrial dilatation. The IVC is dilated with partial inspiratory collapse. RVSP 73 mmHg. Echo: 06/27/2022 Left ventricle: Normal chamber size. [...] mmHg at a heart rate of 81 bpm.Trivial mitral regurgitation. Mitral valve ring is visualized. Aortic valve: Normal trileaflet appearance. Thickened aortic valve. Normal leaflet mobility. No evidence of aortic valve stenosis. No aortic regurgitation. Aortic root: Normal diameter and appearance. Pulmonic valve: Normal thickness and mobility. No stenosis no regurgitation. Pericardium: No evidence of pericardial effusion. Assessment/Plan There are no diagnoses linked to this encounter. #ASD s/p closure using a 18 mm Amplatzer Septal Occluder device -Doing well after his recent procedure -He will need an ECHO in 2 weeks for follow-up - ordered -Discussed importance of antibiotics prior to any dental work for the next 6 months -Continue ASA/plavix #Heart failure with improved ejection fraction #Chronic right sided heart failure -He appears compensated on exam -Continue aldactone 25mg daily, hydrochlorothiazide 12.5mg daily (did not tolerate higher dose), and 3mg of bumex daily #Hx severe MR s/p mitral valve repair 2019 #HTN - controlled #Paroxysmal atrial fibrillation: -RRR on exam -He is no longer on coumadin. Continue aspirin 81 mg daily. He is status post left atrial appendagesurgical exclusion. No follow-ups on file. Pamela Ohara CNP documented in this encounter Plan of Treatment DateTypeDepartmentCare Team (Latest Contact Info)Vxjxerggiil42/09/2026 9:30 AM ESTOffice Visit [facility] [address] [place] [id number] John Salas MD [address] [facility] [address] [facility] [place] [address] NameTypePriorityAssociated DiagnosesOrder ScheduleTransthoracic echo (TTE) completeEchocardiographyRoutine ASD (atrial septal defect) S/P percutaneous closure of atrial septal defect Expected: 08/12/2025 (Approximate), Expires: 08/12/2027documented as of this encounter Visit Diagnoses Diagnosis ASD (atrial septal defect)- Primary Ostium secundum type atrial septal defect S/P percutaneous closure of atrial septal defect Other postprocedural status Heart failure with improved ejection fraction (HFimpEF) (CMS/HCC) Chronic right-sided congestive heart failure (CMS/HCC) Congestive heart failure, unspecified Paroxysmal atrial fibrillation (CMS/HCC) Atrial fibrillation Status post mitral valve repair Other postprocedural status documented in this encounter Care Teams Team MemberRelationshipSpecialtyStart DateEnd Raymundo Vlea MD [address] [facility] [address] [address] PCP - Dsnyupb06/22/22documented as of this encounter
--- OUTSIDE RECORDS SUMMARY | 2025-08-25 09:49 | XMS_ITS | Patient Health Record ---
Author Organization [facility] in [place] Address [address] [place] [address] Care Team Providers Care Esthetic Dermatologist Name Role Phone Jl Vela Primary Care Provider Allergies No Known Allergies Results Component Value Reference Range Notes PROF CHEM 8 (BAS METB) Reviewed date:01/18/2025 05:54:16 PM Interpretation: Performing Lab: Notes/Report: [facility] , Sodium 139 136-145 mmol/L Potassium3.33.5-5.1 mmol/RJhwqrisd8147-251 mmol/LCarbon Nbgzltb51.221.0-32.0 mmol/LAnion Gap12.3Edfxqqt32773-696 mg/dLBlood Urea Suntshmc08.07.0-18.0 mg/dL Creatinine1.400.70-1.30 mg/dLEstimated GFR ( Rajani>60>=60 mL/min/1.73m 2Estimated GFR (Non- Ame52>=60 mL/min/1.73m 2BUN Creatinine Ratio21.4 Calcium9.18.5-10.1 mg/dLPerforming Lab:see noteML - [facility] LBCBC AUTO DIFF Reviewed date:07/19/2025 07:53:54 PM Interpretation: Performing Lab: Notes/Report: [facility] ,White Blood Count9.84.0-11.0 10 3/uLRed Blood Count5.024.70-6.10 10 6/uL Kilhuxfkln23.514.0-18.0 g/hGOqkygyyuds47.642.0-54.0 %Mean Corpuscular Roamad70.8 80.0-94.0 fLMean Corpuscular Naopoidfyl14.925.9-34.0 pgMean Corpuscular HGB Conc 33.329.9-35.2 g/dLRed Cell Distribution Width13.211.0-15.0 %Platelet Vvaux762 150-450 10 3/uLMean Platelet Volume9.39.5-13.5 fLNeutrophils Percent Auto60.1 43.0-75.0 %Lymphocytes Percent Auto24.520.5-60.0 %Monocytes Percent Auto11.01.7- 12.0 %Eosinophils Percent Auto2.70.9-7.0 %Basophils Percent Auto1.20.2-2.0 % Immature Granulocytes Pct Auto0.50.0-0.5 %Neutrophils Absolute Auto5.91.4-6.5 10 3/uLLymphocytes Absolute Auto2.41.2-3.8 10 3/uLMonocytes Absolute Auto1.10.3-0.8 10 3/uLEosinophils Absolute Auto0.30.0-0.7 10 3/uLBasophils Absolute Auto0.10.0- 0.1 10 3/uLImmature Granulocytes Abs Auto0.050.00-0.03 10 3/uLPerforming Lab:see noteML - [facility] LBPROF CHEM 8 (BAS METB) Reviewed date:07/19/2025 07:53:54 PM Interpretation: Performing Lab: Notes/Report: [facility] ,Nthgku798516-731 mmol/LPotassium3.93.5-5.1 mmol/EIbziqmvx4524-659 mmol/LCarbon Bzfsgsw21.021.0-32.0 mmol/LAnion Gap13.6Xbznqrn84801-089 mg/dLBlood Urea Rtdwbvjj41.07.0-18.0 mg/dLCreatinine1.470.70-1.30 mg/dLEstimated GFR ( Tslaxzc77>=60 mL/min/1.73m 2Estimated GFR (Non- Ame49>=60 mL/min/1.73m 2 BUN Creatinine Ratio19.3Vmtqmxr3.28.5-10.1 mg/dLPerforming Lab:see noteML - [facility] LBPROF CHEM 8 (BAS METB) Reviewed date:02/16/2025 06:06:56 PM Interpretation: Performing Lab: Notes/Report: [facility] ,Mgndhz713466-049 mmol/LPotassium3.83.5-5.1 mmol/WUyxsefft58813-206 mmol/LCarbon Wzfvkzz29.021.0-32.0 mmol/LAnion Gap12.3Yiuzecx06277-586 mg/dLBlood Urea Lpmnrmhg84.07.0-18.0 mg/dLCreatinine1.160.70-1.30 mg/dLEstimated GFR ( Rajani>60>=60 mL/min/1.73m 2Estimated GFR (Non- Yadi>60>=60 mL/min/1.73m 2BUN Creatinine Ratio20.2Jnjipxc5.38.5-10.1 mg/dLPerforming Lab:see noteML - [facility] LBCA echo doppler complete Reviewed date:12/27/2024 03:40:31 PM Interpretation: Performing Lab: Notes/Report: Source Facility: [facility]-[address] [place] [address] Cardiology Report Signed Patient: TRACIE KOCH MR#: [id number] : 1965 Acct:[id number] Age/Sex: 59 / M ADM Date: 12/25/24 Loc: CARD Attending Dr: VIET SALAS Ordering Physician: VIET SALAS Date of Service: 12/25/24 Procedure(s): CA echo doppler complete Accession Number(s): [id number] cc: Raymundo Vela M.D.; VIET SALAS Patient Name: TRACIE KOCH MR#: [id number] : 1965 Exam Date: 12/25/2024 Ordering Doctor: DR VIET SALSA M.D. ECHOCARDIOGRAM REPORT PROCEDURE: CA ECHO DOPPLER COMPLETE INDICATIONS: Pulmonary hypertension, mitral valve ring (30mm Physio-ring), PFO closure, 40mm SCARLET clip COMPARISON: None. DESCRIPTION: COMPLETE ECHOCARDIOGRAM Real-time transthoracic echocardiography with 2D, M-mode, spectral and color flow Doppler performed. QUALITY: Technical quality was good. LEFT VENTRICLE: Normal chamber size. Normal left ventricular wall thickness. Normal systolic function. LV EF: Normal left ventricular ejection fraction, (>55%). DIASTOLIC: ATRIAL SEPTUM: Visually appears intact. LEFT ATRIUM: Severe dilatation. RIGHT ATRIUM: Severe dilatation. RIGHT VENTRICLE: Moderate dilatation. Mildly reduced right ventricular systolic function. TRICUSPID VALVE: Normal mobility and thickness. No stenosis with moderate regurgitation. Doppler studies reveal severely (>60) elevated right sided pressures. RVSP 68 mmHg MITRAL VALVE: Trivial mitral regurgitation. Annuloplasty ring is seen in the mitral position with elevated Doppler flow. Mean diastolic gradient is 7.6 mmHg. AORTIC VALVE: Normal trileaflet appearance. No visible sclerosis. Normal leaflet mobility. No evidence of aortic valve stenosis. No aortic regurgitation. AORTIC ROOT: Normal diameter and appearance. PULMONIC VALVE: Normal thickness and mobility. No stenosis. No regurgitation. PERICARDIUM: No evidence of pericardial effusion. IVC: IVC is dilated (3.1 cm), with no collapse PLEURA: CONCLUSION: 1. Normal left ventricular size and systolic function. Estimated LVEF is 55 to 60%. 2. Moderately dilated right ventricle with mildly reduced systolic function. 3. Severe biatrial dilatation. 4. Mitral valve status post ring repair with elevated Doppler flow. Mean diastolic gradient 7.6 mmHg. 5. Mild to moderate tricuspid regurgitation. 6. Severely elevated right-sided pressures. RVSP is 68 mmHg. Adult Echocardiography Procedure Report Left Ventricle LVEDD (3.7 - 5.6 cm): 5.07 cm LVESD (2.2 - 4.0 cm): 3.90 cm LVIVS thickness (0.6 - 1.2 cm): 1.08 cm LVPW thickness (0.5 - 1.0 cm): 1.92 cm LVOT Max Gradient: 2.18 mm[Hg] LVOT Area (cm2): 0.74 m/s Peak Velocity (LVOT): 0.74 m/s Mean Velocity (LVOT): 0.53 m/s LVOT Diameter 2.40 cm Left Atrium LA Volume Index (2D A2C): 58.53 ml/m2 Left Atrium Systolic Dimension: 6.04 cm Mitral Valve MV E to A Ratio: 0.51 Mitral Valve A-Wave Peak Velocity: 1.60 m/s Mitral Valve E-Wave Peak Velocity: 0.81 m/s Right Ventricle Aorta AO Root Diam: 3.83 cm Aortic Valve AoV Area (Peak Kane): 3.13 cm2, 3.13 cm2 AoV Area (VTI): 3.68 cm2, 3.68 cm2 Peak Velocity(Antegrade Flow): 1.06 m/s Peak Gradient(Antegrade Flow): 4.53 mm[Hg] Mean Velocity(Antegrade Flow): 0.69 m/s Mean Gradient(Antegrade Flow): 2.23 mm[Hg] Velocity Time Integral: 20.15 cm Tricuspid Valve Peak Velocity (Regurgitant Flow): 3.18 m/s, 3.22 m/s, 3.37 m/s, 3.63 m/s Pulmonic Valve Mean Gradient: 2.31 mm[Hg] Mean Velocity: 0.70 m/s Peak Velocity: 1.13 m/s, 1.02 m/s Peak Gradient: 4.20 mm[Hg], 5.13 mm[Hg] Right Atrium Right Atrium Systolic Pressure: 95.88 ml, 95.88 ml Dictated by: Viet Salas M.D. on 12/25/2024 at 17:36 Approved by: Viet Salas M.D. on 12/25/2024 at 17:41 Dictated By: VIET SALAS Signed By: 12/25/24 1743 DD/ 174 TD/TT: Driller Hand:Occult Blood* Reviewed date:10/18/2024 01:29:53 PM Interpretation: Performing Lab: Notes/Report: [facility] ,Occult BloodNegativePerforming Lab:see paola - [facility] LBPSA SCREENING Reviewed date:10/15/2024 07:50:39 PM Interpretation: Performing Lab: Notes/Report: [facility] ,Prostate Specific Antigen Scrn0.47<=4.00 ng/mLPerforming Lab:see paola - [facility] LBLIPID PROFILE Reviewed date:10/15/2024 07:50:39 PM Interpretation: Performing Lab: Notes/Report: [facility] ,Lfhuzevzgpkrr24<=150 mg/hQFcoinomtkvm544<=200 mg/dLHDL Oilmiaqtohl3347-07 mg/dL > or =60 mg/dl - LOW CARDIOVASCULAR RISK <40 mg/dl - HIGH CARDIOVASCULAR RISK LDL Cholesterol Ldfsaqsjcf39.0 <100 mg/dl OPTIMAL 100-129 mg/dl NEAR OR ABOVE OPTIMAL 130-159 mg/dl BORDERLINE HIGH 160-189 mg/dl HIGH >190 mg/dl VERY HIGH VLDL CKNBIQZFNCS86.0Chol HDL Ratio3.2 7.1 - 11.0 MODERATE RISK 4.4 - 7.1 AVERAGE RISK >11.0 HIGH RISK 3.3 - 4.4 LOW RISK Performing Lab:see note - [facility] LBGLYCOHEMOGLOBIN A1C Reviewed date:10/15/2024 07:50:39 PM Interpretation: Performing Lab: Notes/Report: [facility] ,Glycohemoglobin A1C5.84.5-6.2 % ACTION SUGGESTED ADA THERAPEUTIC TARGET < 7.0 ADA RECOMMENDED LIMIT 4.0 - 6.0 > 7.0 Estimated Average Nnpewnx776Fwdckthllc Lab:see [facility] LB CBC AUTO DIFF Reviewed date:10/15/2024 01:55:09 PM Interpretation: Performing Lab: Notes/Report: [facility] ,White Blood Count8.94.0-11.0 10 3/uLRed Blood Count5.094.70-6.10 10 6/uL Iqfdqsrjnt47.514.0-18.0 g/qNXbhnvipupx53.342.0-54.0 %Mean Corpuscular Sxhahf99.0 80.0-94.0 fLMean Corpuscular Zpjxzrnriy37.525.9-34.0 pgMean Corpuscular HGB Conc 31.329.9-35.2 g/dLRed Cell Distribution Width14.211.0-15.0 %Platelet Lmnfs009 150-450 10 3/uLMean Platelet Volume9.29.5-13.5 fLNeutrophils Percent Auto60.3 43.0-75.0 %Lymphocytes Percent Auto24.520.5-60.0 %Monocytes Percent Auto10.31.7- 12.0 %Eosinophils Percent Auto3.20.9-7.0 %Basophils Percent Auto1.10.2-2.0 % Immature Granulocytes Pct Auto0.60.0-0.5 %Neutrophils Absolute Auto5.41.4-6.5 10 3/uLLymphocytes Absolute Auto2.21.2-3.8 10 3/uLMonocytes Absolute Auto0.90.3- 0.8 10 3/uLEosinophils Absolute Auto0.30.0-0.7 10 3/uLBasophils Absolute Auto0.1 0.0-0.1 10 3/uLImmature Granulocytes Abs Auto0.050.00-0.03 10 3/uLPerforming Lab:see noteML - [facility] LBCA echo doppler complete Reviewed date:04/15/2025 04:25:45 PM Interpretation: Performing Lab: Notes/Report: Source Facility: [facility]-[address] [place] [address] Cardiology Report Signed Patient: TRACIE KOCH MR#: [id number] : 1965 Acct:[id number] Age/Sex: 59 / M ADM Date: 04/15/25 Loc: CARD Attending Dr: VIET SALAS Ordering Physician: VIET SALAS Date of Service: 04/15/25 Procedure(s): CA echo doppler complete Accession Number(s): [id number] cc: Raymundo Vela M.D.; VIET SALAS Patient Name: TRACIE KOCH MR#: [id number] : 1965 Exam Date: 04/15/2025 Ordering Doctor: DR VIET SALAS M.D. 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 DESCRIPTION: COMPLETE ECHOCARDIOGRAM Real-time transthoracic echocardiography with 2D, M-mode, spectral and color flow Doppler performed. QUALITY: Technical quality was good. LEFT VENTRICLE: Normal chamber size. Mild concentric left ventricular hypertrophy. LV EF: Global left systolic function is normal; visually estimated ejection fraction is 55%. D-shaped septum consistent with right ventricular pressure and/or volume overload. DIASTOLIC: Unable to assess diastolic function. ATRIAL SEPTUM: Visually appears intact. LEFT ATRIUM: Moderate dilatation. RIGHT ATRIUM: Severe dilatation. Interatrial septum bows from the right to the left. RIGHT VENTRICLE: Severe dilatation. Decreased right ventricular systolic function. TRICUSPID VALVE: Normal mobility and thickness. Moderate to severe regurgitation. Doppler studies reveal severely (>60) elevated right sided pressures. RVSP 75 mmHg MITRAL VALVE: Mild mitral regurgitation. Annuloplasty ring is seen in the mitral position with elevated Doppler flows. The posterior mitral leaflet appears restricted in motion. Mean 8.1 mmHg, which is increased from 7.6 mmHg from echo done on 12/25/24. AORTIC VALVE: Normal trileaflet appearance. No visible sclerosis. Normal leaflet mobility. No evidence of aortic valve stenosis. No aortic regurgitation. AORTIC ROOT: Normal diameter and appearance. PULMONIC VALVE: Normal thickness and mobility. No stenosis. No regurgitation. PERICARDIUM: No evidence of pericardial effusion. IVC: IVC is dilated (2.8 cm), does not collapse. CONCLUSION: 1. Global left systolic function is normal; visually estimated ejection fraction is 55% 2. D-shaped septum consistent with right ventricular pressure and/or volume overload 3. Mild left ventricular hypertrophy 4. The right ventricle is severely dilated with reduced systolic function 5. Biatrial dilation 6. Moderate to severe tricuspid regurgitation 7. Severely elevated right-sided pressures; RVSP 75 mmHg 8. Mitral annuloplasty ring seen with elevated Doppler flows; the posterior leaflet of the mitral valve appears restricted in motion 9. Mild mitral regurgitation Adult Echocardiography Procedure Report Left Ventricle LVEDD (3.7 - 5.6 cm): 5.01 cm LVESD (2.2 - 4.0 cm): 3.51 cm LVIVS thickness (0.6 - 1.2 cm): 1.00 cm LVPW thickness (0.5 - 1.0 cm): 1.28 cm LVOT Max Gradient: 3.78 mm[Hg] LVOT Area (cm2): 0.97 m/s Peak Velocity (LVOT): 0.97 m/s Mean Velocity (LVOT): 0.67 m/s LVOT Diameter 2.27 cm Left Atrium LA Volume Index (2D A2C): 45.57 ml/m2 Left Atrium Systolic Dimension: 6.03 cm Mitral Valve MV E to A Ratio: 0.57 Mitral Valve A-Wave Peak Velocity: 1.43 m/s Mitral Valve E-Wave Peak Velocity: 0.82 m/s Right Ventricle Aorta AO Root Diam: 3.55 cm Aortic Valve AoV Area (Peak Kane): 3.66 cm2, 3.66 cm2 AoV Area (VTI): 4.05 cm2, 4.05 cm2 Peak Velocity(Antegrade Flow): 1.08 m/s Peak Gradient(Antegrade Flow): 4.64 mm[Hg] Mean Velocity(Antegrade Flow): 0.78 m/s Mean Gradient(Antegrade Flow): 2.70 mm[Hg] Velocity Time Integral: 22.14 cm Tricuspid Valve Peak Velocity (Regurgitant Flow): 3.16 m/s, 3.56 m/s, 3.88 m/s Pulmonic Valve Peak Gradient: 3.84 mm[Hg], 4.13 mm[Hg] Right Atrium Right Atrium Systolic Pressure: 149.57 ml, 149.57 ml Dictated by: Piotr Jenkins M.D. on 04/15/2025 at 11:23 Approved by: Piotr Jenkins M.D. on 04/15/2025 at 11:31 Dictated By: Piotr Jenkins M.D. Signed By: 04/15/25 1133 DD/ 1131 TD/TT: Driller Hand:TSH Reviewed date:10/15/2024 07:50:39 PM Interpretation: Performing Lab: Notes/Report: [facility] ,Thyroid Stimulating Hormone4.3070.358-3.740 uIU/mLPerforming Lab:see noteML - [facility] LBT4 Reviewed date:10/15/2024 07:50:39 PM Interpretation: Performing Lab: Notes/Report: [facility] ,T4 Thyroxine7.804.50-12.10 ug/dLPerforming Lab:see noteML - [facility] LBPROF 14(COMP METB) Reviewed date:10/15/2024 07:50:39 PM Interpretation: Performing Lab: Notes/Report: [facility] ,Vyfgim425417-885 mmol/LPotassium3.83.5-5.1 mmol/HJvqaipgw19070-121 mmol/LCarbon Rnmrdod63.921.0-32.0 mmol/LAnion Gap10.4Jjvtzmf83559-682 mg/dLBlood Urea Imwguehn31.07.0-18.0 mg/dLCreatinine1.130.70-1.30 mg/dLEstimated GFR ( Rajani>60>=60 mL/min/1.73m 2Estimated GFR (Non- Yadi>60>=60 mL/min/1.73m 2BUN Creatinine Ratio18.4Xnlbyst3.48.5-10.1 mg/dLBilirubin Total1.10.2-1.0 mg/dL Aspartate Amino Nnlifzqvbeb4588-27 U/LAlanine Qwuzcgmpzeslzael6812-08 U/L Alkaline Vcugldnxpuj5113-124 U/LTotal Protein7.66.4-8.2 g/dLAlbumin Level3.83.4- 5.0 g/dLGlobulin3.8Albumin Globulin Ratio1.0Performing Lab:see noteML - [facility] LBFREE T3 Reviewed date:10/15/2024 07:50:39 PM Interpretation: Performing Lab: Notes/Report: [facility] Primitivo T32.512.18-3.98 pg/mLPerforming Lab:see noteML - [facility] LB Reason For Referral No Information Medications Medication SIG (Take, Route, Frequency, Duration) Notes Start Date End Date Status Ferrous Sulfate 325 (65 Fe) MG 1 tablet Orally t wice daily; Duration: 30 days 06/19/2023ctivehydroCHLOROthiazide 12.5 MG1 tablet in the morning Orally Once a dayActiveBumetanide 2 MG1.2 tablet Oral TID; Duration: 30 daysActiveClopidogrel Bisulfate 75 MG1 tablet Orally Once a dayActiveSertraline HCl 50 mgTAKE 1 TABLET BY MOUTH DAILY; Duration: 30ActiveSpironolactone 25 MG1 tablet Oral 3 times a day; Duration: 30 daysActiveMetoprolol Succinate ER 50 MGOral; Duration: 30 DaysActivePotassium Chloride Gege ER 20 MEQ1 tablet with food Oral 3 times a day; Duration: 30 daysActiveLosartan Potassium 25 MGOral; Duration: 30 Days ActiveLevothyroxine Sodium 75 MCGTAKE 1 TABLET BY MOUTH IN THE MORNING ON AN EMPTY STOMACH; Duration: 30 daysActiveLiothyronine Sodium 5 mcgTAKE 1 TABLET BY MOUTH ONCE DAILY ON AN EMPTY STOMACH; Duration: 30 daysActive Social History Tobacco Use: Social History Observation Description Date Details (start date - stop date) Never Smoker NA - NA Tobacco Use/Smoking Question Answer Notes Patient is a nonsmoker Alcohol Screen (Audit-C) Question Answer Notes Did you have a drink containing alcohol in the p ast year? No Spxcrg1SpkeyliskrdhheFrtgdcujKNHQU-S (Standard) Question Answer Notes Did you have a drink containing alcohol in the p ast year? No Hdljng0WjuykbtdvjnyizJyvclfft Problems Problem Type SNOMED Code ICD Code Onset Dates Problem Status W/U Status Risk Notes Problem Hypothyroidism (94855242) Hypothyroidism, unspecified (E03.9) ActiveconfirmedProblemRheumatic tricuspid insufficiency (73456130)Rheumatic tricuspid insufficiency (I07.1)ActiveconfirmedProblemParoxysmal atrial fibrillation (551978622)Paroxysmal atrial fibrillation (I48.0)Activeconfirmed ProblemChronic systolic heart failure (290214380)Chronic systolic (congestive) heart failure (I50.22)ActiveconfirmedProblemCardiomegaly (1538113)Cardiomegaly (I51.7)ActiveconfirmedProblemAbnormal results of cardiovascular function studies (073003725)Abnormal result of cardiovascular function study, unspecified (R94.30)ActiveconfirmedProblemSleep apnea (41997012)Sleep apnea (G47.30)Active confirmedProblemSinusitis (12344124)Sinusitis (J32.9)ActiveconfirmedProblemWell adult (498032353)Well adult (Z00.00)ActiveconfirmedProblemMild left ventricular hypertrophy (427880526)Mild left ventricular hypertrophy (I51.7)Activeconfirmed ProblemPostprocedural states (629660340)Other specified postprocedural states (Z98.890)ActiveconfirmedProblemPulmonary hypertension (92516864)Pulmonary hypertension, unspecified (I27.20)ActiveconfirmedProblemChronic heart failure (60293664)Chronic right heart failure (I50.812)ActiveconfirmedProblemAbnormal results of cardiovascular function studies (478433151)Ejection fraction < 50% (R94.30)ActiveconfirmedProblemAbnormal results of cardiovascular function studies (233269797)Elevated right ventricular end-diastolic pressure (R94.30) ActiveconfirmedProblemCardiomegaly (4703556)Atrial dilation (I51.7)Active confirmedProblemAtrial septal defect (disorder) (19414853)Atrial septal defect, unspecified (Q21.10)Activeconfirmed Vital Signs Blood pressure diastolic 72 mm Hg 08/02/2025 Rsggwx43 in08/02/2025lood pressure qdvhhxaw450 mm Hg08/02/20254477Vkgmvp357.8 lbs 08/02/2025BMI38.59 kg/m208/02/2025 Encounters Encounter Location Date Provider Diagnosis [facility] [address] [place] [address] 08/02/2025 Jl Vela Chronic right heart failure I50.812 and Sleep apnea G47.[address] [address] 10/12/2024 Jl Vela Wellness examination Z01.[address] [address] 10/15/2024 Jl Vela [facility] [facility] [place] [address] 11/20/2024Doug [facility] [facility] [place] [address]/[facility] [facility] [address]/[facility] [place] [address]/[facility] [place] [address]/11/20[facility] En[facility] Date Diagnosis (ICD Code) Assessment Notes Treatment Notes Treatment Clinical Notes Section Notes 08/02/2025 Chronic right heart failure (ICD -10 - I50.812) 08/02/2025Sleep apnea (ICD-10 - G47.30) Sleep apnea - corwin e no longer working needs new machine dpose he need a repat sleep study 10/12/2024Wellness examination (ICD-10 - Z01.89) Plan Of Treatment Pending Test Test Name Order Date CMP (COMPLETE METABOLIC PANEL) 3 HEMOGLOBIN A1C (GLYCO) 08/28/2023 LIPID PANEL (CHOL/TRIG/HDL/LDL) 08/28/20 23 CBC WITH DIFF (EXP 07/2025) 08/28/2023 PSA, PROSTATE-SPECIFIC ANTIGEN 3 BMP w/GFR 08/29/2023 FECAL OCCULT BLOOD 10/12/2024 CMP - Comprehensive Metabolic Panel 09/30 THYROID PANEL (T4/TSH/FREE T3) 3 THYROID PANEL (T4/TSH/FREE T3) 3 THYROID PANEL (T4/TSH/FREE T3) 5 PSA, SCREENING 10/12/2024 Insurance Providers Payer Name Payer Address Payer Phone Subscriber Number Group Number Insured Name Patient Relationship to Insured Coverage Start Date Coverage End Date [employer] PPO PLUS LOCAL PLAN [address] [place] [phone] [id number] Tracie Koch Self - patient is the insured Medical (General) History Medical History History ICD Code Atrial enlargement, bilateral I51.7 Atrial fibrillation I48.91 Atrial septal defect, unspecified Q21.10 CHF (congestive heart failure) I50.9 COVID-19 U07.1 Hypothyroidism E03.9 Lumbar disc disease M51.9 Mitral valve insufficiency I34.0 Aortic valve insufficiency I35.1 Mitral valve prolapse I34.1 Tricuspid regurgitation I07.1 Varicose veins of both lower extremities I83.93 Venous insufficiency I87.2 Right ventricular dilation I51.7 Mitral regurgitation I34.0 Tricuspid regurgitation I07.1 Surgical History Surgery Date(Month/Year) Endovenous Laser Ablation Left Perforato rs- Dr. Cuellar 05/10/2022 Left Greater Saphenous Vein Ablation 05/04 Left Greater Saphenous Vein Ablation 03/31 Cardioversion- Dr. Stallworth 05/12/2019 Vein Sclerosing- multiple dates, both le jesse Bronchoscopy, ERUS guided TBNA, tumor debulking- Dr. Boggsi110/21/22right heart catheterizationshunt studyaccess into the right internal jugular vein under ultrasound guidanceHeart Cath02/28/24ospitalization History Reason Date(Month/Year) see above
--- OUTSIDE RECORDS SUMMARY | 2025-08-25 09:49 | XMS_ITS | Clinical Summary ---
Author Organization [employer] [facility] Address [id number] [address] [place] [address] Care Team Providers Care Filtration Operator Name Role Phone Raymundo Vela MD Primary Care Provider [phone] Allergies No known active allergies Medications MedicationSigDispense QuantityRefillsLast FilledStart DateEnd DateStatus amiodarone (PACERONE) 200 mg tablet Take 200 mg by mouth 2 (two) times a day.Active aspirin 325 mg tablet Take 325 mg by mouth daily.Active furosemide (LASIX) 40 mg tablet Take 40 mg by mouth daily.Active metoprolol succinate XL (TOPROL-XL) 50 mg 24 hr tablet Take 50 mg by mouth daily.Active sertraline (ZOLOFT) 50 mg tablet Take 50 mg by mouth daily.Active oxyCODONE-acetaminophen (PERCOCET) 5-325 mg per tablet Take 2 tablets by mouth every 4 (four) hours as needed for pain.Active docusate sodium (COLACE) 100 mg capsule Take 100 mg by mouth daily.Active amoxicillin-pot clavulanate (AUGMENTIN) 875-125 mg per tablet Take 1 tablet by mouth 3 (three) times a day.Active ferrous sulfate 325 mg (65 mg iron) capsule, extended release Take 1 tablet by mouth 2 (two) times a day.Active levothyroxine (SYNTHROID, LEVOTHROID) 50 MCG tablet Take 50 mcg by mouth daily.Active Social History Tobacco UseTypesPacks/DayYears UsedDateSmoking Tobacco: Never AssessedChildcare AnswerDate LerxttzyWutimiyomGksuyyd71/28/2019EmploymentAnswerDate Recorded NdmcbzylxnPvgtdmo08/28/2019Purpose - LifeAnswerDate RecordedPurpose and direction in xjwfUpsszps27/11/2021Sex and Gender InformationValueDate Recorded Sex Assigned at BirthNot on fileLegal PcfLdoi6703/27/2019 1:53 PM EDTGender IdentityNot on fileSexual OrientationNot on file Last Filed Vital Signs Vital SignReadingTime TakenCommentsBlood Hvtiowyk819/60004/23/2019 9:51 AM EDT Mkbfy60768/25/2019 9:51 AM TPAQmpforxsdwm83.8 ??C (98.3 ??F)04/23/2019 9:51 AM EDTRespiratory Nfer077404/23/2019 9:51 AM EDTOxygen Cdsxyouaso76%04/23/2019 9:51 AM EDTInhaled Oxygen Concentration--Irzyjj740.2 kg (271 lb 8 oz)04/14/2019 9:39 AM RFJGlzran798.5 cm (6' 3 )03/28/2019 12:35 PM EDTBody Mass Index33.94 03/28/2019 12:35 PM EDT Plan of Treatment Health MaintenanceDue DateLast DoneCommentsDepression Gzarbfebf96/22/1976Tobacco Mmbdkypks31/22/1976Adult BMI Jmqzaizoh75/22/1982DTaP,Tdap and Td Vaccines (1 - Tdap)1983Zoster (Shingles) Vaccine (1 of 2)2014Influenza Vaccine 05/31/2025RSV ( or age 60+ yrs) (1 - 1-dose 75+ series)2039 Medical Devices Not on file Insurance Care Teams Team MemberRelationshipSpecialtyStart DateEnd Raymundo Vela MD PCP - GeneralFamily Medicine03/27/19
--- OUTSIDE RECORDS SUMMARY | 2025-08-25 09:49 | XMS_ITS | Clinical Summary ---
Author Organization [facility] Address [address] [facility] [place] [address] Care Team Providers Care Pediatric Psychiatrist Name Role Phone Raymundo Vela MD Primary Care Provider [phone] Allergies No known active allergies Medications MedicationSigDispense QuantityRefillsLast FilledStart DateEnd DateStatus aspirin 81 MG EC tablet Take 1 tablet by mouth Daily06/26/2024ctive bumetanide (Bumex) 2 MG tablet Take by mouth 3 (three) times a day 1.5 tabsActive metoprolol succinate XL (Toprol-XL) 50 MG 24 hr tablet Take 1 tablet by mouth Daily06/26/2024ctive potassium chloride CR (Klor-Con M20) 20 MEQ ER tablet Take 1 tablet by mouth in the morning and 1 tablet in the evening. Take with meals.Active spironolactone (Aldactone) 25 MG tablet Take 1 tablet by mouth in the morning and 1 tablet before bedtime.Active liothyronine (Cytomel) 5 MCG tablet Take 5 mcg by mouth Daily Take on an empty stomach.5Active ferrous sulfate 325 (65 Fe) MG tablet Take 325 mg by mouth in the morning and 325 mg in the evening.Active levothyroxine (Synthroid, Levoxyl) 75 MCG tablet Take 75 mcg by mouth in the morning. Take before meals.Active sertraline (Zoloft) 50 MG tablet Take 1 tablet by mouth DailyActive Social History Tobacco UseTypesPacks/DayYears UsedDateSmoking Tobacco: NeverSmokeless Tobacco: NeverSex and Gender InformationValueDate RecordedSex Assigned at BirthNot on fileLegal GptNbmy8112/12/2022 9:36 PM EDTGender IdentityNot on fileSexual OrientationNot on file Last Filed Vital Signs Vital SignReadingTime TakenCommentsBlood Flrhtvli489/8002 4:35 PM EST Yuvih9546/06/2025 4:35 PM ESTTemperature--Respiratory Rate--Oxygen Zfwjirzgad78% 11/09/2024 4:35 PM ESTInhaled Oxygen Concentration--Kepkix401 kg (275 lb) 11/09/2024 4:35 PM BEYEoaeof827.5 cm (6' 3 )11/09/2024 4:35 PM ESTBody Mass Index34.37011/09/2024 4:35 PM EST Plan of Treatment Health MaintenanceDue DateLast DoneCommentsCT Welchuawbmgt1964Colonoscopy 1964Colorectal Cancer Janszabur1964FIT-DNA1964FIT1965 FOBT1965 2276Ayjhonqmdzugw1964COVID-19 Vaccine ( season) 5010/07/2021, 03/21/2021, 02/21/2021Influenza Vaccine (#1)2025 10/07/2021, 06/12/2017, 07/04/2016Pneumococcal Vaccine: Pediatrics (0 to 5 Years) and At-Risk Patients (6 to 64 Years)Aged OutNo longer eligible based on patient's age to complete this [place] [address] Care Teams Team MemberRelationshipSpecialtyStart Date Raymundo Vela MD PCP - GeneralFamily Medicine11/09/24
--- OUTSIDE RECORDS SUMMARY | 2025-08-25 09:49 | XMS_ITS | Clinical Summary ---
Author Organization [facility] Address [address] [place] [address] Care Team Providers Care [employer] Name Role Phone Raymundo Vela MD Primary Care Provider [phone] Allergies No known active allergies Medications MedicationSigDispense QuantityRefillsLast FilledStart DateEnd DateStatus ferrous sulfate 325 (65 Fe) MG tablet Take 325 mg by mouth two times daily.Active sertraline (Zoloft) 50 mg tablet Take 50 mg by mouth in the morning.Active liothyronine (Cytomel) 5 mcg tablet Take 5 mcg by mouth in the morning.10/21/2023ctive aspirin 81 mg EC tablet Indications:Status post mitral valve repairTake 1 tablet (81 mg) by mouth once daily as directed. 90 tablet 4Active potassium chloride CR (Klor-Con M20) 20 mEq ER tablet Indications:Heart failure with improved ejection fraction (HFimpEF) (CMS/HCC), Chronic right-sided congestive heart failure (CMS/HCC),Pulmonary hypertension (CMS/HCC)Take 1 tablet (20 mEq) by mouth three times daily. Do not crush or chew. 270 tablet /410514/6Active metoprolol succinate XL (Toprol-XL) 50 mg 24 hr tablet Indications:Heart failure with improved ejection fraction (HFimpEF) (CMS/HCC) Take 1 tablet (50 mg) by mouth once daily as directed. 90 tablet 5Active bumetanide (Bumex) 2 mg tablet Indications:Heart failure with improved ejection fraction (HFimpEF) (CMS/HCC), Pulmonary hypertension (CMS/HCC)Take 1.5 tablets (3 mg) by mouth three times daily. 405 tablet /850649/09/2026Active spironolactone (Aldactone) 25 mg tablet Indications:Heart failure with improved ejection fraction (HFimpEF) (CMS/HCC) Take 1 tablet (25 mg) by mouth three times daily. 270 tablet ctive clopidogrel (Plavix) 75 mg tablet Indications:S/P percutaneous closure of atrial septal defectTake 1 tablet (75 mg) by mouth in the morning. 90 tablet /ctive levothyroxine (Synthroid, Levoxyl) 50 mcg tablet Indications:Hypothyroidism, unspecified type,Secundum ASDTake 1.5 tablets (75 mcg) by mouth in the morning. 45 tablet tive hydroCHLOROthiazide 12.5 mg tablet Indications:Heart failure with improved ejection fraction (HFimpEF) (CMS/HCC), Chronic right-sided congestive heart failure (CMS/HCC),Pulmonary hypertension (CMS/HCC)Take 1 tablet (12.5 mg) by mouth in the morning. 90 tablet /ctive levothyroxine (Synthroid, Levoxyl) 50 mcg tablet Take 1 tablet by mouth in the morning.07/27/2025Discontinued hydroCHLOROthiazide (HYDRODiuril) 25 mg tablet Indications:Heart failure with improved ejection fraction (HFimpEF) (CMS/HCC), Chronic right-sided congestive heart failure (CMS/HCC),Pulmonary hypertension (CMS/HCC)Take 1 tablet (25 mg) by mouth in the morning. 90 tablet Discontinued clopidogrel (Plavix) 75 mg tablet Indications:S/P percutaneous closure of atrial septal defectTake 1 tablet (75 mg) by mouth in the morning. 90 tablet Discontinued Active Problems ProblemNoted DateDiagnosed DateOther specified postprocedural binyus8708/12/2025 Mcswhhopx00/13/2025Sleep apnea08/12/2025Mild left ventricular hypertrophy 04/26/2025Elevated right ventricular end-diastolic hrhucudz54/28/2025Heart failure with improved ejection fraction (HFimpEF)04/26/2025bnormal result of cardiovascular function study, eacwdfvidmx71/25/2741Mzogeqagdfay43/25/2024 Chronic right-sided congestive heart wapborg4503/26/2024Secundum ASD03/26/2024 Pulmonary argujpirfmjr67/26/2024Nonrheumatic tricuspid valve regurgitation 01/24/2024enign neoplasm of soft aflgfm00Hypothyroidism, yjpghlxfmpp29Neoplasm of uncertain behavior of skin of back eripheral venous kwvsnuwwdaaoj24ight- sided heart sfmivto8210/16/2022Status post mitral valve qicgqc9210/16/2022-fib 10/16/2022symptomatic reticular venous varices of both lower extremities 10/16/2022trial septal mmugkz8610/16/2022Family history of mitral valve repair History of varicose veinsulmonary venous pzrapmnaok38hronic xizjrdduyx57 Chronic systolic heart pbenrht3004/07/2019Gastroesophageal reflux disease Erectile ptfaalxamvt66 Encounters DateTypeDepartmentCare IrvyZbepzthjlya88/13/2025 2:20 PM ESTOffice Visit [facility] [address] [address] Pamela Ohara CNP ASD (atrial septal defect) (Primary Dx); S/P percutaneous closure of atrial septal defect; Heart failure with improved ejection fraction (HFimpEF) (CMS/HCC); Chronic right-sided congestive heart failure (CMS/HCC); Paroxysmal atrial fibrillation (CMS/HCC); Status post mitral valve jrizcy6007/28/2025Telephone [facility] [address] [place] [id number] Anabell Judd RN Hospital Follow-up07/26/2025 8:30 AM EDT - 07/26/2025 10:30 AM EDTSurgery [facility] Vascular Lab [address] [place] [address] John Salas MD Atrial septal defect closure [74236 (CPT??)]07/26/2025 6:57 AM EDT - 07/27/2025 2:24 PM EDTHospital Encounter [facility] [address] [place] [address] John Salas MD ASD (atrial septal defect) (Primary Dx); Atrial septal defect; Heart failure with improved ejection fraction (HFimpEF) (CMS/HCC); Chronic right-sided congestive heart failure (CMS/HCC); Pulmonary hypertension (CMS/HCC); Nonrheumatic tricuspid valve regurgitation; S/P percutaneous closure of atrial septal defect; Hypothyroidism, unspecified type; Secundum ASD Discharge Disposition: Home or Self Care (01)07/26/2025Orders Only Cardiology [address] [place] [address] John Salas MD S/P percutaneous closure of atrial septal defect (Primary Dx)07/26/2025[facility] [place] [address] [place] [address] [facility], [place], [place] Heart failure with improved ejection fraction (HFimpEF) (CMS/HCC)from Last 3 Months Family History Medical HistoryRelationNameCommentsAlzheimer's diseaseMotherAtrial fibrillation MotherRelationNameStatusCommentsFatherDeceasedMotherAlive Social History Tobacco UseTypesPacks/DayYears UsedDateSmoking Tobacco: NeverSmokeless Tobacco: Never Tobacco Cessation:Counseling Given: Not Answered Alcohol UseStandard Drinks/WeekCommentsNot Currently0 (1 standard drink = 0.6 oz pure alcohol)[facility] UtilitiesAnswerDate RecordedIn the past 12 months has the [employer], gas, oil, or water [employer] threatened to shut off services in your [...] were you homeless or living in a nursing home (including now)? No07/26/2025Hunger Vital SignAnswerDate RecordedWithin the past 12 months, you worried that your food would run out before you got the money to buymore.Never true07/26/2025Ran Out of Food in the Last YearNot on file07/26/2025 CommentsNoSex and Gender InformationValueDate RecordedSex Assigned at BirthMale 07/27/2025 9:42 AM EDTLegal FtjRefd6403/29/2022 12:15 AM EDTGender IdentityMale 07/27/2025 9:42 AM EDTSexual OrientationHeterosexual or Qleghrkd08/27/2025 6:57 AM EDT Last Filed Vital Signs Vital SignReadingTime TakenCommentsBlood Cvkufnrd556/6811/ 2:14 PM EST Upkha59392/13/2025 2:14 PM PDPLklvpufainv71.4 ??C (97.5 ??F)07/27/2025 12:35 PM EDTRespiratory Geow9364 12:35 PM EDTOxygen Eousmwqkns71%08/12/2025 2:14 PM ESTInhaled Oxygen Concentration--Owaufg720 kg (305 lb)08/12/2025 2:14 PM EST Tnpsor021.5 cm (6' 3 )08/12/2025 2:14 PM ESTBody Mass Index38.12110/12/2024 2:14 PM EST Plan of Treatment DateTypeDepartmentCare Team (Latest Contact Info)Oztcbkxjrgf19/09/2026 9:30 AM ESTOffice Visit [facility] [address] [address] John Salas MD [address] [facility] [address] [place] [address] Health MaintenanceDue DateLast DoneCommentsCT Fuzkbzcmsmgu1964Colonoscopy 1965Colorectal Cancer Einvdgbsw1964FIT-DNA1964FIT1965 FOBT1965 1679Qrmlmgkqbfhdl1964Depression Jvmgsxeya30/22/1976Pneumococcal Vaccine: Pediatrics (0 to 5 Years) and At-Risk Patients (6 to 64 Years) (1 of 2 - PCV)1983Zoster Vaccines (1 of 2)2014COVID-19 Vaccine ( - season)/04/2022, 03/21/2021, 02/21/2021Influenza Vaccine (#1) 501/04/2022, 06/12/2017, 07/04/2016Adult Qizekgj86HIB VaccinesAged OutNo longer eligible based on patient's age to complete this topic HPV VaccinesAged OutNo longer eligible based on patient's age to complete this topicIPV VaccinesAged OutNo longer eligible based on patient's age to complete this topicMeningococcal B VaccineAged OutNo longer eligible based on patient's age to complete this topicMeningococcal VaccineAged OutNo longer eligible based on patient's age to complete this topicRotavirus VaccinesAged OutNo longer eligible based on patient's age to complete this topic Medical Devices ImplantedTypeAreaManufacturerDevice IdentifierShelf Expiration DateModel / Serial / LotAmplatzer Implanted:Qty: 1 on 07/26/2025 by [facility] Closure DeviceN/A: [employer] Information [id number] / [id number] / [id number] Procedures Procedure NamePriorityDate/TimeAssociated DiagnosisCommentsCOMPLETE ECHO (TTE) W/ IMAGING LWJOXWaehyhv79/28/2025 11:20 AM EDT XR CHEST 2 XOMUXDantplc59/28/2025 9:56 AM EDT ECG 12-LLVWSgkpike71/28/2025 9:00 AM EDT XR CHEST 1 HASFWohocgc66/27/2025 4:56 PM EDT POCT ACTIVATED CLOTTING SWRZKkmxgpr92/27/2025 2:40 PM EDT ACTIVATED CLOTTING OYWNLmwzobz62/27/2025 2:28 PM EDT ACTIVATED CLOTTING HMEHFxurmgc30/27/2025 12:21 PM EDT POCT ACTIVATED CLOTTING PRGABsolptx92/27/2025 12:19 PM EDT ACTIVATED CLOTTING UAFAEkelgur99/27/2025 10:48 AM EDT STRUCTURAL FDERIVmbpnqx22/27/2025 10:37 AM EDT Atrial septal defect Heart failure with improved ejection fraction (HFimpEF) (CMS/HCC) Chronic right-sided congestive heart failure (CMS/HCC) Pulmonary hypertension (CMS/HCC) Nonrheumatic tricuspid valve regurgitation INTRACARDIAC WDIGJMMMRCOSMTMqvpbdz54/27/2025 10:37 AM EDT Atrial septal defect Heart failure with improved ejection fraction (HFimpEF) (CMS/HCC) Chronic right-sided congestive heart failure (CMS/HCC) Pulmonary hypertension (CMS/HCC) Nonrheumatic tricuspid valve regurgitation RIGHT HEART CTVFMaipsfl31/27/2025 10:37 AM EDT Atrial septal defect Heart failure with improved ejection fraction (HFimpEF) (CMS/HCC) Chronic right-sided congestive heart failure (CMS/HCC) Pulmonary hypertension (CMS/HCC) Nonrheumatic tricuspid valve regurgitation LEFT HEART QXYILjmpzxp69/27/2025 10:37 AM EDT Atrial septal defect Heart failure with improved ejection fraction (HFimpEF) (CMS/HCC) Chronic right-sided congestive heart failure (CMS/HCC) Pulmonary hypertension (CMS/HCC) Nonrheumatic tricuspid valve regurgitation ACTIVATED CLOTTING PCWAVvgomga83/27/2025 10:31 AM EDT %UUM2Mfylcvc87/27/2025 10:16 AM EDT %DML3Svqybea67/27/2025 10:15 AM EDT ACTIVATED CLOTTING HKPXYrxclfe03/27/2025 10:04 AM EDT ACTIVATED CLOTTING LAADWwizyzr70/27/2025 9:52 AM EDT %BKQ2Sogbsed01/27/2025 9:40 AM EDT ACTIVATED CLOTTING AHZYNsmxoco14/27/2025 9:35 AM EDT %RWG2Jllabpz99/27/2025 9:35 AM EDT %ECE5Twwysfg22/27/2025 9:27 AM EDT ACTIVATED CLOTTING HJWSDydjipi74/27/2025 9:24 AM EDT %NHB4Ryfqzso01/27/2025 9:22 AM EDT %HCI4Vvolylm74/27/2025 9:22 AM EDT %FNY8Ammdfgv52/27/2025 9:20 AM EDT %NNZ3Ddngklx19/27/2025 9:19 AM EDT ECG 12-HUXVYmmlhmq05/27/2025 8:06 AM EDT from Last 3 Months Results * COMPLETE ECHO (TTE) W/ IMAGING AGENT (07/27/2025 11:20 AM EDT)Anatomical RegionLateralityModalityOtherSpecimen (Source)Anatomical Location / Laterality Collection Method / VolumeCollection TimeReceived Time07/27/2025 10:49 AM EDT Addenda Addendum by Dana Arenas MD on 07/27/2025 2:45 PM EDT 1 1 [facility] Heart Station [address] [place] [address] [phone] (fax) Echocardiogram-[facility] Name: TRACIE CRAIN Study Date: 07/27/2025 10:49 AM B/P: 110 mmHg/73 mmHg HR: Date of : 1965 Location: [facility] Height: 75 in. Age: 60 year(s) Patient Room: 3137 Weight: 298 lb. Gender: Male Patient Status: InPt BSA: 2.6 m2 Indication: ASD repair;18 mm Amplatzer ASO occluder, Mitral Valve Repair; 30 mm Physio-ring, CSARLET Occluder, Tricuspid regurgitation Examination: Echocardiogram (Complete), Lumason Contrast Image Quality: Fair Patient Consent: Procedure explained to patient Conclusions Left Ventricle: The left ventricle is normal [...] ventricular systolic function appears normal. Doppler studies suggest mildly elevated right sided pressures. Left Atrium: The left atrium is mildly enlarged. ASD closure device is noted, well seated, no residual shunt by color flow Right Atrium: The right atrium is severely enlarged. Mitral Valve: Mitral ring visualized with elevated mean gradient of 11 mmHg and mild regurgitation. Aortic Valve: Mild aortic valve regurgitation. Tricuspid Valve: Severe tricuspid regurgitation seen best on Lumason imaging. Severe tricuspid regurgitation. Pericardium: No pericardial effusion. Measurements Left Ventricle Label Value Normal Value LVOT VTI 21.8 cm (18cm - 22cm) LVOT PGmax 6 mmHg LVEF visual 50 % LVDd, 2D 5.05 cm (4.2cm - 5.9cm) LVDs, 2D 2.8 cm (2.1cm - 4cm) IVSd, 2D 0.74 cm (0.6cm - 1.1cm) LVPWd, 2D 1.05 cm (0.6cm - 1cm) LV Mass, 2D ASE 159.7 g LV Mass Index, 2D ASE 61.4 g/m?? (50g/m?? - 102.4g/m??) RWT, MM 0.42 (0 - 0.42) LVSVI, 2D 35 ml/m2 LVOT PGmean 3 mmHg Right Ventricle Label Value Normal Value RVDd, 2D 6.33 cm (1.9cm - 3.8cm) TAPSE 1.8 cm Left Atrium Label Value Normal Value LA Volume, BP 94 ml (18ml - 58ml) LADs, 2D 4.8 cm (3cm - 4cm) LAESV index, BP 36.2 ml/m?? Right Atrium Label Value Normal Value RA Area 38.5 cm?? Aortic Valve Label Value Normal Value AV DVI 0.81 AV VTI 25.9 cm Mitral Valve Label Value Normal Value MV E' lateral 0.11 m/s Tricuspid Valve Label Value Normal Value RA Pressure 8 mmHg RVSP 43 mmHg TR Vmax 2.97 m/s Aorta Label Value Normal Value AoRoot, 2D 3.4 cm (1.4cm - 3.8cm) Valvular Assessment LVOT 0.7 - 1.1 m/sec Aortic Valve 1.0 - 1.7 m/sec Mitral Valve 0.6 - 1.3 m/sec Tricuspid Valve 0.3 - 0.7 m/sec Pulmonic Valve 0.6 - 0.9 m/sec Regurgitation Mild Severe No Stenosis No No No Max Velocity 1.24 m/sec 1.53 m/s 0.99 m/s Max Gradient 9.00 mmHg 24.00 mmHg 4.00 mmHg Mean Gradient 5.00 mmHg 11.00 mmHg Valve Area 2.3 cm?? Findings Left Ventricle: The left ventricle is normal [...] ventricular systolic function appears normal. Doppler studies suggest mildly elevated right sided pressures. Left Atrium: The left atrium is mildly enlarged. ASD closure device is noted, well seated, no residual shunt by color flow Right Atrium: The right atrium is severely enlarged. Mitral Valve: Mitral ring visualized with elevated mean gradient of 11 mmHg and mild regurgitation. Mitral Valve Measurements MV Vmax: 2.43 m/s. MV Vmean: 1.52 m/s. MV PGmax: 24.00 mmHg. MV PGmean: 11.00 mmHg. Aortic Valve: Aortic valve appears normal. Aortic valve is tri-leaflet. Mild aortic valve regurgitation. No aortic valve stenosis. Tricuspid Valve: Severe tricuspid regurgitation seen best on Lumason imaging. Normal tricuspid valve. Severe tricuspid regurgitation. No tricuspid valve stenosis. Pulmonic Valve: Pulmonary valve appears normal. No pulmonary regurgitation. No pulmonic valve stenosis. Aorta: The aortic root exhibits normal size. Great Vessels: IVC: The inferior vena cava is poorly visualized. Pericardium: No pericardial effusion. Procedure Staff Reading Group: [facility] Graphics Artist: Dorys Parada RDCS ??Ordering Physician: John Salas MD Narrative 07/27/2025 2:45 PM EDT 1 1 [facility] [address] [place] [address] [phone] (fax) Echocardiogram-[facility] Name: TRACIE CRAIN Study Date: 07/27/2025 10:49 AM B/P: 110 mmHg/73 mmHg HR: Date of : 1965 Location: [facility] Height: 75 in. Age: 60 year(s) Patient Room: 3137 Weight: 298 lb. Gender: Male Patient Status: InPt BSA: 2.6 m2 Indication: ASD repair;18 mm Amplatzer ASO occluder, Mitral Valve Repair; 30 mm Physio-ring, SCARLET Occluder, Tricuspid regurgitation Examination: Echocardiogram (Complete), Lumason Contrast Image Quality: Fair Patient Consent: Procedure explained to patient Conclusions Left Ventricle: The left ventricle is normal [...] ventricular systolic function appears normal. Doppler studies suggest mildly elevated right sided pressures. Left Atrium: The left atrium is mildly enlarged. Right Atrium: The right atrium is severely enlarged. Mitral Valve: Mitral ring visualized with elevated mean gradient of 11 mmHg and mild regurgitation. Aortic Valve: Mild aortic valve regurgitation. Tricuspid Valve: Severe tricuspid regurgitation seen best on Lumason imaging. Severe tricuspid regurgitation. Measurements Left Ventricle Label Value Normal Value LVOT VTI 21.8 cm (18cm - 22cm) LVOT PGmax 6 mmHg LVEF visual 50 % LVDd, 2D 5.05 cm (4.2cm - 5.9cm) LVDs, 2D 2.8 cm (2.1cm - 4cm) IVSd, 2D 0.74 cm (0.6cm - 1.1cm) LVPWd, 2D 1.05 cm (0.6cm - 1cm) LV Mass, 2D ASE 159.7 g LV Mass Index, 2D ASE 61.4 g/m?? (50g/m?? - 102.4g/m??) RWT, MM 0.42 (0 - 0.42) LVSVI, 2D 35 ml/m2 LVOT PGmean 3 mmHg Right Ventricle Label Value Normal Value RVDd, 2D 6.33 cm (1.9cm - 3.8cm) TAPSE 1.8 cm Left Atrium Label Value Normal Value LA Volume, BP 94 ml (18ml - 58ml) LADs, 2D 4.8 cm (3cm - 4cm) LAESV index, BP 36.2 ml/m?? Right Atrium Label Value Normal Value RA Area 38.5 cm?? Aortic Valve Label Value Normal Value AV DVI 0.81 AV VTI 25.9 cm Mitral Valve Label Value Normal Value MV E' lateral 0.11 m/s Tricuspid Valve Label Value Normal Value RA Pressure 8 mmHg RVSP 43 mmHg TR Vmax 2.97 m/s Aorta Label Value Normal Value AoRoot, 2D 3.4 cm (1.4cm - 3.8cm) Valvular Assessment LVOT 0.7 - 1.1 m/sec Aortic Valve 1.0 - 1.7 m/sec Mitral Valve 0.6 - 1.3 m/sec Tricuspid Valve 0.3 - 0.7 m/sec Pulmonic Valve 0.6 - 0.9 m/sec Regurgitation Mild Severe No Stenosis No No No Max Velocity 1.24 m/sec 1.53 m/s 0.99 m/s Max Gradient 9.00 mmHg 24.00 mmHg 4.00 mmHg Mean Gradient 5.00 mmHg 11.00 mmHg Valve Area 2.3 cm?? Findings Left Ventricle: The left ventricle is normal [...] ventricular systolic function appears normal. Doppler studies suggest mildly elevated right sided pressures. Left Atrium: The left atrium is mildly enlarged. Right Atrium: The right atrium is severely enlarged. Mitral Valve: Mitral ring visualized with elevated mean gradient of 11 mmHg and mild regurgitation. Mitral Valve Measurements MV Vmax: 2.43 m/s. MV Vmean: 1.52 m/s. MV PGmax: 24.00 mmHg. MV PGmean: 11.00 mmHg. Aortic Valve: Aortic valve appears normal. Aortic valve is tri-leaflet. Mild aortic valve regurgitation. No aortic valve stenosis. Tricuspid Valve: Severe tricuspid regurgitation seen best on Lumason imaging. Normal tricuspid valve. Severe tricuspid regurgitation. No tricuspid valve stenosis. Pulmonic Valve: Pulmonary valve appears normal. No pulmonary regurgitation. No pulmonic valve stenosis. Aorta: The aortic root exhibits normal size. Great Vessels: IVC: The inferior vena cava is poorly visualized. Pericardium: No pericardial effusion. Procedure Staff Reading Group: [facility] Graphics Artist: Dorys Parada RDCS ??Ordering Physician: John Salas MD ?? Procedure Note Dana Arenas MD - 07/27/2025 1 1 [facility] Heart Station [address] [facility] [place] [place] [address] [phone] (fax) Echocardiogram-[facility] Name: TRACIE CRAIN Study Date: 07/27/2025 10:49 AM B/P: 110 mmHg/73 mmHg HR: Date of : 1965 Location: [facility] Height: 75 in. Age: 60 year(s) Patient Room: 3137 Weight: 298 lb. Gender: Male Patient Status: InPt BSA: 2.6 m2 Indication: ASD repair;18 mm Amplatzer ASO occluder, Mitral Valve Repair; 30 mm Physio-ring, SCARLET Occluder, Tricuspid regurgitation Examination: Echocardiogram (Complete), Lumason Contrast Image Quality: Fair Patient Consent: Procedure explained to patient Conclusions Left Ventricle: The left ventricle is normal [...] ventricular systolic function appears normal. Doppler studies suggest mildly elevated right sided pressures. Left Atrium: The left atrium is mildly enlarged. Right Atrium: The right atrium is severely enlarged. Mitral Valve: Mitral ring visualized with elevated mean gradient of 11 mmHg and mild regurgitation. Aortic Valve: Mild aortic valve regurgitation. Tricuspid Valve: Severe tricuspid regurgitation seen best on Lumason imaging. Severe tricuspid regurgitation. Measurements Left Ventricle Label Value Normal Value LVOT VTI 21.8 cm (18cm - 22cm) LVOT PGmax 6 mmHg LVEF visual 50 % LVDd, 2D 5.05 cm (4.2cm - 5.9cm) LVDs, 2D 2.8 cm (2.1cm - 4cm) IVSd, 2D 0.74 cm (0.6cm - 1.1cm) LVPWd, 2D 1.05 cm (0.6cm - 1cm) LV Mass, 2D ASE 159.7 g LV Mass Index, 2D ASE 61.4 g/m?? (50g/m?? - 102.4g/m??) RWT, MM 0.42 (0 - 0.42) LVSVI, 2D 35 ml/m2 LVOT PGmean 3 mmHg Right Ventricle Label Value Normal Value RVDd, 2D 6.33 cm (1.9cm - 3.8cm) TAPSE 1.8 cm Left Atrium Label Value Normal Value LA Volume, BP 94 ml (18ml - 58ml) LADs, 2D 4.8 cm (3cm - 4cm) LAESV index, BP 36.2 ml/m?? Right Atrium Label Value Normal Value RA Area 38.5 cm?? Aortic Valve Label Value Normal Value AV DVI 0.81 AV VTI 25.9 cm Mitral Valve Label Value Normal Value MV E' lateral 0.11 m/s Tricuspid Valve Label Value Normal Value RA Pressure 8 mmHg RVSP 43 mmHg TR Vmax 2.97 m/s Aorta Label Value Normal Value AoRoot, 2D 3.4 cm (1.4cm - 3.8cm) Valvular Assessment LVOT 0.7 - 1.1 m/sec Aortic Valve 1.0 - 1.7 m/sec Mitral Valve 0.6 - 1.3 m/sec Tricuspid Valve 0.3 - 0.7 m/sec Pulmonic Valve 0.6 - 0.9 m/sec Regurgitation Mild Severe No Stenosis No No No Max Velocity 1.24 m/sec 1.53 m/s 0.99 m/s Max Gradient 9.00 mmHg 24.00 mmHg 4.00 mmHg Mean Gradient 5.00 mmHg 11.00 mmHg Valve Area 2.3 cm?? Findings Left Ventricle: The left ventricle is normal [...] ventricular systolic function appears normal. Doppler studies suggest mildly elevated right sided pressures. Left Atrium: The left atrium is mildly enlarged. Right Atrium: The right atrium is severely enlarged. Mitral Valve: Mitral ring visualized with elevated mean gradient of 11 mmHg and mild regurgitation. Mitral Valve Measurements MV Vmax: 2.43 m/s. MV Vmean: 1.52 m/s. MV PGmax: 24.00 mmHg. MV PGmean: 11.00 mmHg. Aortic Valve: Aortic valve appears normal. Aortic valve is tri-leaflet. Mild aortic valve regurgitation. No aortic valve stenosis. Tricuspid Valve: Severe tricuspid regurgitation seen best on Lumason imaging. Normal tricuspid valve. Severe tricuspid regurgitation. No tricuspid valve stenosis. Pulmonic Valve: Pulmonary valve appears normal. No pulmonary regurgitation. No pulmonic valve stenosis. Aorta: The aortic root exhibits normal size. Great Vessels: IVC: The inferior vena cava is poorly visualized. Pericardium: No pericardial effusion. Procedure Staff Reading Group: [facility] Graphics Artist: Dorys Parada RDCS Ordering Physician: John Salas MD Authorizing ProviderResult TypeResult StatusGeorge Josue [facility] [place] ECHO PROCEDURESEdited Result - Final * XR chest 2 views (07/27/2025 9:56 AM EDT)Anatomical RegionLateralityModality ChestComputed RadiographySpecimen (Source)Anatomical Location / Laterality Collection Method / VolumeCollection TimeReceived Time07/27/2025 9:57 AM EDT Impressions 07/27/2025 10:00 AM EDT * Developing left basilar density resembling atelectasis. Correlate clinically and short-term follow-up to exclude pneumonia. Electronically signed: Alfonso Garcia. Narrative 07/27/2025 10:00 AM EDT XR CHEST 2 VIEWS 07/27/2025 9:41 AM CLINICAL INDICATIONS: Status post cardiac surgery. Septal defect closure. COMPARISON: Recent studies FINDINGS: Heart is enlarged similar to previous. Valvuloplasty and atrial appendage closure device noted. Prominence left basilar markings more resembling atelectasis on lateral projection. Right lung is clear. No effusion. Procedure Note Alfonso Garcia MD - 07/27/2025 XR CHEST 2 VIEWS 07/27/2025 9:41 AM CLINICAL INDICATIONS: Status post cardiac surgery. Septal defectclosure. COMPARISON: Recent studies FINDINGS: Heart is enlarged similar to previous. Valvuloplasty and atrial appendage closure device noted. Prominence left basilar markings more resembling atelectasis on lateral projection. Right lung is clear. No effusion. IMPRESSION: * Developing left basilar density resembling atelectasis. Correlate clinically and short-term follow-up to exclude pneumonia. Electronically signed: Alfonso Garcia. Authorizing ProviderResult TypeResult StatusGeorge Josue ADKINSIMG XR PROCEDURES Final Result * ECG 12 lead (07/27/2025 9:00 AM EDT) Only the most recent of2 resultswithin the time period is included. ComponentValueRef RangeTest MethodAnalysis TimePerformed AtPathologist Signature Ventricular Jucg70ZNLEN MUSEAtrial Imfy46YXJXC MUSEPR Deeutdmt021nlOJ MUSEQRS DRADMWUB149anAZ MUSEQT Cjlrmltx548exLZ MUSEQTC CALCULATION(BAZETT)473msGE MUSEP Rtpt12vdzrlhqYZ MUSER-Jswy868wzmqzeuEI MUSET Wave Dxek16fgqleyaEN MUSESpecimen (Source)Anatomical Location / LateralityCollection Method / VolumeCollection TimeReceived Time07/27/2025 8:54 AM EDT1 7:09 PM EDT Impressions GE MUSE - 07/27/2025 7:09 PM EDT Normal sinus rhythm Right superior axis deviation Pulmonary disease pattern Right ventricular hypertrophy Abnormal ECG When compared with ECG of 26-JUL-2025 07:39, No significant change was found Confirmed by John Salas ([id number]) on 07/27/2025 7:09:23 PM Narrative Procedure Note John Salas MD - 07/27/2025 IMPRESSION: Normal sinus rhythm Right superior axis deviation Pulmonary disease pattern Right ventricular hypertrophy Abnormal ECG When compared with ECG of 26-JUL-2025 07:39, No significant change was found Confirmed by John Salas ([id number]) on 07/27/2025 7:09:23 PM Authorizing ProviderResult TypeResult StatusSara Stout CNPECG ORDERABLESFinal ResultPerforming OrganizationAddressCity/State/ZIP CodePhone Number GE MUSE * XR chest 1 view (07/26/2025 4:56 PM EDT)Anatomical RegionLateralityModality ChestComputed RadiographySpecimen (Source)Anatomical Location / Laterality Collection Method / VolumeCollection TimeReceived Time07/27/2025 5:48 AM EDT Impressions 07/27/2025 5:49 AM EDT Improved aeration with minimal vascular congestion Electronically signed: Netta Wick. Narrative 07/27/2025 5:49 AM EDT XR CHEST 1 VIEW 07/26/2025 4:16 PM CLINICAL INDICATIONS: Post atrial septal defect closure COMPARISON: 03/27/2019 FINDINGS: Cardiac size is stable. There is improved aeration of both lungs with minimal vascular congestion. There is no focal consolidation, pleural effusion or pneumothorax Procedure Note Netta Wick MD - 07/27/2025 XR CHEST 1 VIEW 07/26/2025 4:16 PM CLINICAL INDICATIONS: Post atrial septal defect closure COMPARISON: 03/27/2019 FINDINGS: Cardiac size is stable. There is improved aeration of both lungs with minimal vascular congestion.There is no focal consolidation, pleural effusion or pneumothorax IMPRESSION: Improved aeration with minimal vascular congestion Electronically signed: Netta Wick. Authorizing ProviderResult TypeResult StatusGeorerasto Salas MDIMPro XR PROCEDURES Final Result * (ABNORMAL) POCT activated clotting time manually resulted (07/26/2025 2:40 PM EDT) Only the most recent of2 resultswithin the time period is included. ComponentValueRef RangeTest MethodAnalysis TimePerformed AtPathologist Signature Activated Clotting Time AHP384(A)82 - 152 secSpecimen (Source)Anatomical Location / LateralityCollection Method / VolumeCollection TimeReceived TimeBlood Venous blood specimen / [id number]/26/2025 2:40 PM EDT Narrative Authorizing ProviderResult TypeResult StatusJohn Salas MDPOINT OF CARE TEST ENTER/EDIT ORDERABLESFinal Result * (ABNORMAL) Activated clotting time (07/26/2025 2:28 PM EDT) Only the most recent of8 resultswithin the time period is included. ComponentValueRef RangeTest MethodAnalysis TimePerformed AtPathologist Signature Activated Clotting Cbxy049(H)82 - 152 07/27/2025 7:07 AM [facility])Specimen (Source)Anatomical Location / LateralityCollection Method / VolumeCollection TimeReceived TimeBloodVenous blood specimen / Klpnmcr7907/26/2025 2:28 PM EDT1 7:07 AM EDT Narrative Authorizing ProviderResult TypeResult StatusJohn Salas MDLAB POINT OF CARE TEST DOCKED DEVICE UNSOLICITED RESULTSFinal ResultPerforming OrganizationAddress City/State/ZIP CodePhone Number [facility] ([place]) [address] [place] [address] * ATRIAL SEPTAL DEFECT CLOSURE (07/26/2025 10:37 AM EDT)Anatomical Region LateralityModalityOtherSpecimen (Source)Anatomical Location / Laterality Collection Method / VolumeCollection TimeReceived Time Narrative 07/26/2025 6:43 PM EDT PROCEDURE PHYSICIAN: John Salas MD . Indications: Tracie Crain is a 60 y.o. male who is known to have complex medical and cardiac history including prior surgical mitral valve repair for regurgitation, surgical maze procedure for atrial fibrillation and left atrial appendage surgical exclusion with an AtriClip device. ?? He has a secundum atrial septal defect with yhci-tz-gvslv shunting across it as demonstrated by prior right heart catheterization. ??The defect was characterized by transesophageal echocardiography. ??He has been maintained on diuretic therapy. ??He continues to be symptomatic with lower extremity edema and has evidence of significant right ventricular volume overload. ?? In April 2024 he underwent a hemodynamic study with balloon occlusion of the atrial septal defect and at that time his left-sided filling pressures were elevated and became worse with balloon occlusion therefore we decided to defer closure of the defect at that time and worked on optimizing him medically. He continues to be symptomatic and recently developed acute kidney injury. ??He is brought today for further hemodynamic study and balloon occlusion test of the atrial septal defect in preparation for potential closure. Assistants: None. Procedure Performed: ASD closure using a 18 mm Amplatzer Septal Occluder device. Right heart catheterization. Left heart catheterization. Balloon occlusion test of atrial septal defect with measurement of hemodynamics during balloon occlusion. Intracardiac echocardiogram for guidance of atrial septal defect closure. Access into the right common femoral artery under ultrasound guidance. Access into the right common femoral vein under ultrasound guidance. Access into the left common femoral vein under ultrasound guidance. Deployment of 6F Proglide vascular closure device in the right and left common femoral veins. Methods: ??Procedure was explained to the patient with risks and benefits; he signed informed consent. ??The patient was brought to laborer adjustable steel joist in a fasting state. The groin areas were prepped and draped in the usual fashion. ?? Micropuncture technique was used under ultrasound guidance for a access in the right common femoral artery. ??Inner cannula angiography showed adequate position in the common femoral artery. A 4-Botswanan x 11 cm sheath was placed. Micropuncture technique was used under ultrasound guidance for access in the right common femoral vein and a 6-[place] x 11 cm sheath was placed. Pre-closure was performed using a 6 [place] ProGlide device. Micropuncture technique was used under ultrasound guidance for a second access in the right common femoral vein and a 6-[place] x 11 cm sheath was placed. Micropuncture technique was used under ultrasound guidance for access in the left common femoral vein and a 6-[place] x 11 cm sheath was placed. Pre-closure was performed using a 6 [place] ProGlide device, followed by upsizing to a 11-[place] x 11 cm [place] sheath. Heparin was administered intravenously and therapeutic ACT was confirmed during the rest of the procedure. A 6 [place] Clark catheter was advanced and used to perform right heart catheterization with measurement of pressures and performance of shunt study. ??A 4 [place] pigtail catheter was advanced through the arterial access to the ascending aorta. ??Pressure was recorded. ??The pigtail catheter was then advanced across the aortic valve into the left ventricle for performance of left heart catheterization with measurement of pressures. An AcRockbot intracardiac echocardiogram catheter was advanced from the left common femoral vein to the right atrium, and the initial echocardiographic images were obtained. ??There were enough rims around the secundum atrial septal defect. ??Nvrf-xk-pqbww shunting was identified by color Doppler. ?? There was occasional small right to left shunting happening with deep respiration. A 6-B[place]wan[place] multipurpose catheter was advanced from the venous access over a J wire and used to cross the ASD to the left atrium and then positioned in the left superior pulmonary vein. ??A Amplatz super stiff 0.035 J-tipped wire was advanced into the left superior pulmonary vein through the multipurpose catheter. ??The multipurpose catheter was then removed. A 24 mm Amplatzer sizing balloon II was advanced and inflated across the ASD to measure the stop-flow diameter. ??This was 11.3 mm based on fluoroscopic imaging and 13.7 mm by intracardiac echocardiographic measurements. Following 10 minutes of balloon occlusion of the ASD repeat hemodynamic measurements were performed with measurement of the left ventricular end-diastolic pressure, pulmonary capillary wedge pressure, pulmonary arterial pressure and saturations. ??Because of lack of significant rise of left ventricular end-diastolic pressure after 10 minutes of balloon occlusion, I decided to proceed with closure of the ASD. It was decided to deploy a 18 mm Amplatzer Septal Occluder device based on the measurement and the rims of the ASD. ??The sizing balloon was removed. The device was prepped into the delivery sheath and the delivery sheath was advanced over the wire into the left atrial cavity. The left-sided disk was deployed in the left atrium and the device pulled back against the septum followed by deployment of the right-sided disk. ??The position of the septal occluder was then confirmed by fluoroscopy and by intracardiac echocardiography revealing excellent positioning of the occluder with no impingement on any cardiac structures. ??A tug test was performed under fluoroscopic and intracardiac echocardiographic guidance for confirmation of stability of the device and demonstration of adequate capture of the ASD rims. ??The device was finally released and additional echocardiographic images, as well as fluoroscopic images confirmed adequate positioning. ??Catheters were removed. ?? Hemostasis was achieved by tightening the previously placed Perclose sutures in the right and left common femoral veins. ??The 4 [place] right common femoral arterial sheath and the remaining 6 [place] right common femoral venous sheath will be removed when the ACT is subtherapeutic and manual compression applied for hemostasis. ?? He was loaded with 600 mg of cloopidogrel at the end of the procedure. He tolerated the procedure well and was transferred back to the cardiovascular recovery area. Hemodynamic Data: ?? At baseline: RA: 8 RV: 55/3, 10 PA: 54/26 (37) PCWP: 11 Qp: 8.59 Qpi: 3.29 Qs: 5.52 Qsi: 2.12 Qp/Qs: 1.56 O2 Sat: IVC sat: 65%, SVC sat: 61%, MRA: 73%, PA sat: 72%, PW sat: 92%, LV sat: 90% AO: 98/64 (79) LV: 86/2, 7 LA mean: 12 TP PVR: 3.0 Wood units Post 10 minutes of balloon occlusion of the ASD: LV: 95/5, 8 PCPW: 14 PA: 49/25 (35) PA sat 71%; AO sat: 95%. Impression/Findings: Successful ASD closure using a 18 [...] 1 month with echocardiogram. 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 Indications: Tracie Crain is a 60 y.o. male who is known to have complex medical and cardiac history including prior surgical mitral valve repair for regurgitation, surgical maze procedure for atrial fibrillation and left atrial appendage surgical exclusion with an AtriClip device. ?? He has a secundum atrial septal defect with vzqg-vb-gxxfp shunting across it as demonstrated by prior right heart catheterization. ??The defect was characterized by transesophageal echocardiography. ??He has been maintained on diuretic therapy. ??He continues to be symptomatic with lower extremity edema and has evidence of significant right ventricular volume overload. ?? In April 2024 he underwent a hemodynamic study with balloon occlusion of the atrial septal defect and at that time his left-sided filling pressures were elevated and became worse with balloon occlusion therefore we decided to defer closure of the defect at that time and worked on optimizing him medically. He continues to be symptomatic and recently developed acute kidney injury. ??He is brought today for further hemodynamic study and balloon occlusion test of the atrial septal defect in preparation for potential closure. Assistants: None. Procedure Performed: ASD closure using a 18 mm Amplatzer Septal Occluder device. Right heart catheterization. Left heart catheterization. Balloon occlusion test of atrial septal defect with measurement of hemodynamics during balloon occlusion. Intracardiac echocardiogram for guidance of atrial septal defect closure. Access into the right common femoral artery under ultrasound guidance. Access into the right common femoral vein under ultrasound guidance. Access into the left common femoral vein under ultrasound guidance. Deployment of 6F Proglide vascular closure device in the right and left common femoral veins. Methods: ??Procedure was explained to the patient with risks and benefits; he signed informed consent. ??The patient was brought to laborer adjustable steel joist in a fasting state. The groin areas were prepped and draped in the usual fashion. ?? Micropuncture technique was used under ultrasound guidance for a access in the right common femoral artery. ??Inner cannula angiography showed adequate position in the common femoral artery. A 4-Botswanan x 11 cm sheath was placed. Micropuncture technique was used under ultrasound guidance for access in the right common femoral vein and a 6-B[place]wan[place] x 11 cm sheath was placed. Pre-closure was performed using a 6 [place] ProGlide device. Micropuncture technique was used under ultrasound guidance for a second access in the right common femoral vein and a 6-B[place]wan[place] x 11 cm sheath was placed. Micropuncture technique was used under ultrasound guidance for access in the left common femoral vein and a 6-B[place]wan[place] x 11 cm sheath was placed. Pre-closure was performed using a 6 [place] ProGlide device, followed by upsizing to a 11-[place]wan[place] x 11 cm [place] sheath. Heparin was administered intravenously and therapeutic ACT was confirmed during the rest of the procedure. A 6 [place] Clark catheter was advanced and used to perform right heart catheterization with measurement of pressures and performance of shunt study. ??A 4 [place] pigtail catheter was advanced through the arterial access to the ascending aorta. ??Pressure was recorded. ??The pigtail catheter was then advanced across the aortic valve into the left ventricle for performance of left heart catheterization with measurement of pressures. An AcRockbot intracardiac echocardiogram catheter was advanced from the left common femoral vein to the right atrium, and the initial echocardiographic images were obtained. ??There were enough rims around the secundum atrial septal defect. ??Dhej-jn-gzsro shunting was identified by color Doppler. ?? There was occasional small right to left shunting happening with deep respiration. A 6-Botswanan multipurpose catheter was advanced from the venous access over a J wire and used to cross the ASD to the left atrium and then positioned in the left superior pulmonary vein. ??A Amplatz super stiff 0.035 J-tipped wire was advanced into the left superior pulmonary vein through the multipurpose catheter. ??The multipurpose catheter was then removed. A 24 mm Amplatzer sizing balloon II was advanced and inflated across the ASD to measure the stop-flow diameter. ??This was 11.3 mm based on fluoroscopic imaging and 13.7 mm by intracardiac echocardiographic measurements. Following 10 minutes of balloon occlusion of the ASD repeat hemodynamic measurements were performed with measurement of the left ventricular end-diastolic pressure, pulmonary capillary wedge pressure, pulmonary arterial pressure and saturations. ??Because of lack of significant rise of left ventricular end-diastolic pressure after 10 minutes of balloon occlusion, I decided to proceed with closure of the ASD. It was decided to deploy a 18 mm Amplatzer Septal Occluder device based on the measurement and the rims of the ASD. ??The sizing balloon was removed. The device was prepped into the delivery sheath and the delivery sheath was advanced over the wire into the left atrial cavity. The left-sided disk was deployed in the left atrium and the device pulled back against the septum followed by deployment of the right-sided disk. ??The position of the septal occluder was then confirmed by fluoroscopy and by intracardiac echocardiography revealing excellent positioning of the occluder with no impingement on any cardiac structures. ??A tug test was performed under fluoroscopic and intracardiac echocardiographic guidance for confirmation of stability of the device and demonstration of adequate capture of the ASD rims. ??The device was finally released and additional echocardiographic images, as well as fluoroscopic images confirmed adequate positioning. ??Catheters were removed. ?? Hemostasis was achieved by tightening the previously placed Perclose sutures in the right and left common femoral veins. ??The 4 [place] right common femoral arterial sheath and the remaining 6 [place] right common femoral venous sheath will be removed when the ACT is subtherapeutic and manual compression applied for hemostasis. ?? He was loaded with 600 mg of cloopidogrel at the end of the procedure. He tolerated the procedure well and was transferred back to the cardiovascular recovery area. Hemodynamic Data: ?? At baseline: RA: 8 RV: 55/3, 10 PA: 54/26 (37) PCWP: 11 Qp: 8.59 Qpi: 3.29 Qs: 5.52 Qsi: 2.12 Qp/Qs: 1.56 O2 Sat: IVC sat: 65%, SVC sat: 61%, MRA: 73%, PA sat: 72%, PW sat: 92%, LV sat: 90% AO: 98/64 (79) LV: 86/2, 7 LA mean: 12 TP PVR: 3.0 Wood units Post 10 minutes of balloon occlusion of the ASD: LV: 95/5, 8 PCPW: 14 PA: 49/25 (35) PA sat 71%; AO sat: 95%. Impression/Findings: Successful ASD closure using a 18 [...] 1 month with echocardiogram. 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 ComponentValueRef RangeTest MethodAnalysis TimePerformed AtPathologist Signature O2Hb%94.590.0 - 95.0 %07/26/2025 10:16 AM EDT[facility] ([place])Specimen (Source)Anatomical Location / LateralityCollection Method / VolumeCollection TimeReceived TimeBloodVenous blood specimen / [id number]/26/2025 10:16 AM EDT 07/26/2025 10:16 AM EDT Narrative Authorizing ProviderResult TypeResult StatusJohn LARSON POINT OF CARE TEST DOCKED DEVICE UNSOLICITED RESULTSFinal ResultPerforming OrganizationAddress City/State/ZIP CodePhone Number [facility]) [address] [place] [address] from Last [address] [place] [address] Advance Directives * Full Code (Latest Code Status on File) Date ActivatedDate SqxnhbiaokfAvjheaws06/27/2025 11:08 AM07/27/2025 4:24 PM * Full Code Date ActivatedDate InactivatedComments05/05/2024 6:24 PM05/06/2024 12:44 PM Care Teams Team MemberRelationshipSpecialtyStart DateEnd Date Raymundo Vela MD [address] [facility] [place], [place] [id number] PCP - Yywnzrf21/22/22
--- OUTSIDE RECORDS SUMMARY | 2025-08-25 09:52 | XMS_ITS | CCD ---
Author Organization [facility] Care Team Providers Care Air Compressor Mechanic Name Role Phone TITUS VILLEGAS Referring Unavailable SELF, REFERRED Primary Care Unavailable MASROOR, TIMBO Attending Unavailable JIAN SYED Admitting Unavailable SC Procedure Practitioner Unavailab KRYS De La Tor[place] Surgeon Unavailable SC Procedure Practitioner Unavailab le ILAN CABA Surgeon Unavailable SC Procedure Practitioner Unavailab rishabh BLACK, TIMBO Surgeon Unavailable SC Procedure Practitioner Unavailab MAY De [place] Surgeon Unavailable AIME CABAHRIK Attending Unavailable SHIKHA DANIELSON MOSHRIK Admitting Unavailable ANABELL, TIMBO Referring Unavailable [...] Unavailable Titus Villegas MD Primary Care Provider [phone] EVERETTE GOODWIN Attending Unavailable JAGJITUKAVIET JUNIOR Admitting Unavailable MOUKARBELVIET Attending Unavailable MOUKARBELVIET Attending Unavailable MOUKARBELVIET Attending Unavailable MOUKAVIET JUNIOR Referring Unavailable MOUKAVIET JUNIOR Referring Unavailable BROOKEBARBI Referring Unavailable MOUKARBELVEIT Referring Unavailable MOUKARBEL, VIET Referring Unavailable MOUKARBELVIET Referring Unavailable Medications Current Medications MedicationDrug Class(es)DatesSig (Normalized)Sig (Original)aspirin 81 mg delayed release oral tablet (2 sources)Platelet Aggregation Inhibitor, Nonsteroidal Anti-inflammatory Drug Start: 75-54-7258inph 1 tablet by mouth once dailyaspirin 81 MG EC tablet Take 1 tablet by mouth Daily 06/26/2024 Activebumetanide 2 mg oral tablet (2 sources)Loop Diureticbumetanide (Bumex) 2 MG tablet Take by mouth 3 (three) times a day 1.5 tabs Activeferrous sulfate 325 mg oral tablet (2 sources)take 1 tablet by mouth in the morningferrous sulfate 325 (65 Fe) MG tablet Take 325 mg by mouth in the morning and 325 mg in the evening. Active levothyroxine sodium 0.075 mg oral tablet (2 sources)l-Thyroxinetake 1 tablet by mouth before mealtimelevothyroxine (Synthroid, Levoxyl) 75 MCG tablet Take 75 mcg by mouth in the morning. Take before meals. Activeliothyronine sodium 0.005 mg oral tablet (2 sources)l-TriiodothyronineStart: 22-13-1066wuly 1 tablet by mouth once daily liothyronine (Cytomel) 5 MCG tablet Take 5 mcg by mouth Daily Take on an empty stomach. 10/14/2024 Phssfp84 hr metoprolol succinate 50 mg extended release oral tablet (2 sources)beta-Adrenergic BlockerStart: 69-83-0525acwd 1 tablet by mouth once dailymetoprolol succinate XL (Toprol-XL) 50 MG 24 hr tablet Take 1 tablet by mouth Daily 06/26/2024 Activemicroencapsulated potassium chloride 20 meq extended release oral tablet (2 sources)take 1 tablet by mouth in the morningpotassium chloride CR (Klor-Con M20) 20 MEQ ER tablet Take 1 tablet by mouth in the morning and 1 tablet in the evening. Take with meals. Activesertraline 50 mg oral tablet (2 sources)Serotonin Reuptake Inhibitortake 1 tablet by mouth once daily sertraline (Zoloft) 50 MG tablet Take 1 tablet by mouth Daily Active spironolactone 25 mg oral tablet (2 sources)Aldosterone Antagonisttake 1 tablet by mouth in the morning spironolactone (Aldactone) 25 MG tablet Take 1 tablet by mouth in the morning and 1 tablet before bedtime. Active Problems Active Problems Problem ClassificationProblemDateDocumented DateEpisodic/ChronicCardiac dysrhythmias (2 sources)Paroxysmal atrial fibrillation; Translations: [Paroxysmal atrial fibrillation]Onset: 57-32-1740QwirpejWsijcwlfqg heart failure; nonhypertensive (20 sources)Chronic systolic (congestive) heart failure; Translations: [Acute on chronic right heart failure]Onset: 49-55-9606NmlbngrNnosl valve disorders (3 sources)Rheumatic tricuspid insufficiency; Translations: [Nonrheumatic tricuspid (valve) insufficiency]Onset: 48-06-8208MbgusmpMwdea lower respiratory disease (2 sources)Snoring; Translations: [Snoring]31-14-4618PpjyfbdrLqrqy nervous system disorders (2 sources)Circadian rhythm sleep disorder of shift work type; Translations: [Circadian rhythm sleep disorder,shift work type]93-24-7028JimrcywBsjdz nutritional; endocrine; and metabolic disorders (2 sources)Obesity caused by energy imbalance; Translations: [Other obesity due to excess calories]64-37-5862NxdypxzFyaszcumk heart disease (2 sources)Pulmonary hypertension, unspecified; Translations: [Pulmonary hypertension, unspecified]Onset: 91-60-6077MaqumoqZzxjlhtw codes; unclassified (2 sources)Obstructive sleep apnea syndrome; Translations: [Obstructive sleep apnea (adult) (pediatric)]96-68-9027QkkxnorZeszefpn codes; unclassified (2 sources)Hypersomnia; Translations: [Hypersomnia, unspecified]11-09-2024 ChronicThyroid disorders (2 sources)Hypothyroidism, unspecified; Translations: [Hypothyroidism, unspecified]Onset: 11-95-8845JegsplgBdijmtbwtjsr (1 source)Atrial septal defect, unspecified; Translations: [Atrial septal defect, unspecified]Onset: 47-27-5894Qzfamphtjdqg (1 source)Secundum atrial septal defect; Translations: [Secundum atrial septal defect]Onset: 07-27-2025 Past or Other Problems Problem ClassificationProblemDateDocumented DateEpisodic/ChronicOther aftercare (4 sources)Encounter for surgical aftercare following surgery on the circulatory system; Translations: [ENC SURG AFTRCARE FLW SURG CIRC SYS]Onset: 05-14-2022 EpisodicOther screening for suspected conditions (not mental disorders or infectious disease) (1 source)Encounter for screening for malignant neoplasm of prostate; Translations: [ENC SCREEN MALIG NEOPLASM PROSTATE]Onset: 65-39-6960Dwwhdltz Phlebitis; thrombophlebitis and thromboembolism (9 sources)Phlebitis and thrombophlebitis of superficial vessels of right lower extremity; Translations: [Phlebitis and thrombophlebitis of superficial vessels of left lower extremity]Onset: 50-44-3083XiapuegvUwduewik codes; unclassified (3 sources)Other specified postprocedural states; Translations: [OTH SPECIFIED POSTPROCEDURAL STATES]Onset: 62-14-9514LijyguoeLliaokmasmar (1 source)Atrial septal defect, unspecified; Translations: [Atrial septal defect, unspecified]Onset: 49-04-6496Siuqnktyrdfo (1 source)Secundum atrial septal defect; Translations: [Secundum atrial septal defect]Onset: 89-46-7778Dqtvcxkx veins of lower extremity (5 sources)Varicose veins of bilateral lower extremities with pain; Translations: [VARICOSE VNS UZIEL LOW EXTREMW/PAIN]Onset: 94-75-7838Lrqlkrgr Results Test NameValueInterpretationReference MhgitZaoriktv99ks 50-90-551743Pqws Discharge Call Good morning, I am Anabell Judd RN a lead nurse from [facility]. I am calling you to follow up on your stay with us and make sure all of your questions have been answered. You will be receiving a survey either electronic or via mail and we always aim to receive 9???s and 10???s. If there is any reason you feel as though you cannot give us these scores please indicate that now. 1. How have you been feeling since being discharged from the hospital? Tracie has been feeling ok 2. Did you understand your discharge instructions when they were given to prior to leaving? Yes Were you given an opportunity to ask questions? Yes 3. While a patient in the hospital, was your call light answered in a timely manner? Yes 4. Do have access to all medications that were prescribed to you at discharge? Yes 5. How would you rate your overall stay on a scale of 0-10, 10 being the best experience you have ever had. 5 6. Do you have any further questions you would like to discuss? No When asked if there was anything we could do better if there was another hospital stay they stated the nurses were great but the other things had room for improvement. Patient Name Tracie Crain Date 07/28/25NormalUniversCosho[facility] CenterTelephoneon 07-28-2025 [id number] Tracie Crain 1965 M Date Provider Department Center 07/28/2025 1603-ANABELL JUDD [facility] Medical Family History Problem Relation Age of Onset Atrial fibrillation Mother Alzheimer's disease Mother Family Status - Relation Status Age at Mother Alive Father Reason for Visit and Comments: Hospital Follow-up [832][facility]30on 07-27-2025 30The patient is Moderately Stable - Low risk of patient condition declining or worsening The patient's goals for the shift include discharge The clinical goals for the shift include VSS, discharge if testing is negative for issues Over the shift, the patient did make progress toward the following goals. Problem: Pain - Adult Goal: Verbalizes/displays adequate comfort level or baseline comfort level 07/27/2025 1030 by Dari Jimenez RN Outcome: Progressing Flowsheets (Taken 07/27/2025 1030) Verbalizes/displays adequate comfort level or baseline comfort level: Encourage patient to monitor pain and request assistance Assess pain using appropriate pain scale Administer analgesics based on type and severity of pain and evaluate response Implement non-pharmacological measures as appropriate and evaluate response Consider cultural and social influences on pain and pain management Notify Licensed Independent Practitioner if interventions unsuccessful or patient reports new pain Problem: Safety - Adult Goal: Free from fall injury 07/27/2025 1030 by Dari Jimenez RN Outcome: Progressing Flowsheets (Taken 07/27/2025 1030) Free from fall injury: Assess patient frequently for physical needs Identify cognitive and physical deficits and behaviors that affect risk of falls [place] fall precautions as indicated by assessment Educate patient/family on patient safety, including physical limitations Instruct patient to call for assistance with activity based on assessment Modify environment to reduce risk of injury Consider OT/PT consult to assist with strengthening/mobility Problem: Discharge Planning Goal: Discharge to home or other facility with appropriate resources 07/27/2025 1030 by Dari Jimenez RN Outcome: Progressing Flowsheets (Taken 07/27/2025 1030) Discharge to home or other facility with appropriate resources: Identify barriers to discharge with patient and caregiver Arrange for needed discharge resources and transportation as appropriate Identify discharge learning needs (meds, wound care, etc) Problem: Cardiovascular - Adult Goal: Maintains optimal cardiac output and hemodynamic stability 07/27/2025 1030 by Dari Jimenez RN Outcome: Progressing Flowsheets (Taken 07/27/2025 1030) Maintains optimal cardiac output and hemodynamic stability: Monitor blood pressure and heart rate Monitor urine output and notify Licensed Independent Practitioner for values outside of normal range Assess for signs of decreased cardiac output 07/27/2025 1029 by Dari Jimenez RN Outcome: Progressing Problem: Cardiovascular - Adult Goal: Absence of cardiac dysrhythmias or at baseline 07/27/2025 1030 by Dari Jimenez RN Outcome: Progressing Flowsheets (Taken 07/27/2025 1030) Absence of cardiac dysrhythmias or at baseline: Monitor cardiac rate and rhythm Assess for signs of decreased cardiac output Administer antiarrhythmia medication and electrolyte replacement as ordered [facility]30Daily Case Management Update Multidisciplinary rounds have been completed. Barriers to Discharge: Pending clinical course and improvement in clinical condition. POD #1 scheduled ASD repair/closure. Discharge plan is to return home when medically ready. Diet: Dietary Orders (From admission, onward) Start Ordered 07/27/25 0826 Regular Diet Heart Healthy/HTN, CABG,Stroke, (2gNA, low fat, low cholesterol) Diet effective now Question Answer Comment Room Service? Yes Fat restriction: Heart Healthy/HTN, CABG,Stroke, (2gNA, low fat, low cholesterol) 07/27/25 0826 Physician Expected Discharge Date: 07/27/2025 Discharge Delays: PT Six Click Score: OT Six Click Score: PT Recommendations: OT Recommendations: New Consults:[facility] CenterDSon 92-30-1879SCPlwpsoxmk Admitted 07/26/2025 for Atrial septal defect and elective repair of his ASD. Discharge Diagnosis Secundum Atrial Septal Defect Heart failure with improved ejection fraction (HFimpEF) (CMS/HCC) Hx of paroxysmal afib s/p SCARLET surgical exclusion S/P MV repair Discharge Disposition Home or Self Care () Discharge Medications Your medication list START taking these medications Instructions Last Dose Given Next Dose Due clopidogrel 75 mg tablet Commonly known as: Plavix Take 1 tablet (75 mg) by mouth in the morning. CHANGE how you take these medications Instructions Last Dose Given Next Dose Due hydroCHLOROthiazide 12.5 mg tablet What changed: medication strength how much to take Take 1 tablet (12.5 mg) by mouth in the morning. CONTINUE taking these medications Instructions Last Dose Given Next Dose Due aspirin 81 mg EC tablet Take 1 tablet (81 mg) by mouth once daily as directed. bumetanide 2 mg tablet Commonly known as: Bumex Take 1.5 tablets (3 mg) by mouth three times daily. ferrous sulfate 325 (65 Fe) MG tablet levothyroxine 50 mcg tablet Commonly known as: Synthroid, Levoxyl Take 1.5 tablets (75 mcg) by mouth in the morning. liothyronine 5 mcg tablet Commonly known as: Cytomel metoprolol succinate XL 50 mg 24 hr tablet Commonly known as: Toprol-XL Take 1 tablet (50 mg) by mouth once daily as directed. potassium chloride CR 20 mEq ER tablet Commonly known as: Klor-Con M20 Take 1 tablet (20 mEq) by mouth three times daily. Do not crush or chew. sertraline 50 mg tablet Commonly known as: Zoloft spironolactone 25 mg tablet Commonly known as: Aldactone Take 1 tablet (25 mg) by mouth three times daily. Where to Get Your Medications These medications were sent to [facility] - [address] [place] [address] [address] [facility] [place] [address], [facility] [address] clopidogrel 75 mg tablet hydroCHLOROthiazide 12.5 mg tablet levothyroxine 50 mcg tablet Activity Normal activity as tolerated No exercise for 7 days No strenuous activity for 7 days Diet Continue on the same type of diet and foods as you were eating before your admission. Drink plenty of water. Allergies Patient has no known allergies. Hospital Course Tracie Crain is a 60 y.o. male who is known to have complex medical and cardiac history including prior surgical mitral valve repair for regurgitation, surgical maze procedure for atrial fibrillation and left atrial appendage surgical exclusion with an AtriClip device. He has a secundum atrial septal defect with odfq-ev-kzjca shunting across it as demonstrated by prior right heart catheterization. The defect was characterized by transesophageal echocardiography. He has been maintained on diuretic therapy. He continues to be symptomatic with lower extremity edema and has evidence of significant right ventricular volume overload. In April 2024 he underwent a hemodynamic study with balloon occlusion of the atrial septal defect and at that time his left-sided filling pressures were elevated and became worse with balloon occlusion therefore we decided to defer closure of the defect at that time and worked on optimizing him medically. He continues to be symptomatic and recently developed acute kidney injury. He is brought today for further hemodynamic study and balloon occlusion test of the atrial septal defect in preparation for potential closure Patient underwent successful closure of his ASD using a 18mm Amplatzer Septal Occluder Device on 07/26/25. No events overnight. Vitals stable. Bilateral femoral sites without any bleeding. No s/s infection. He is ambulating well. Denies any CP, SOB, palpitations, dizziness. Echocardiogram, CXR and EKG reviewed by Dr. Salas and cleared for discharge home today. Pertinent Physical Exam At Time of Discharge Physical Exam Vitals and nursing note reviewed. Constitutional: General: He is not in acute distress. Appearance: Normal appearance. He is obese. HENT: Head: Normocephalic. Cardiovascular: Rate and Rhythm: Normal rate and regular rhythm. Pulses: Normal pulses. Heart sounds: Normal heart sounds. No murmur heard. No friction rub. No gallop. Pulmonary: Breath sounds: Normal breath sounds. No wheezing, rhonchi or rales. Musculoskeletal: Right lower leg: No edema. Left lower leg: No edema. Skin: General: Skin is warm and dry. Comments: Bilateral femoral sites dressing C/D/I without any redness, drainage, bleeding. No ecchymosis. Sites soft bilaterally with distal pulses intact Neurological: General: No focal deficit present. Mental Status: He is alert and oriented to person, place, and time. Psychiatric: Mood and Affect: Mood normal. Behavior: Behavior normal. Imaging: CXR 07/27/25: FINDINGS: Heart is enlarged similar to previous. Valvuloplasty and atrial appenda (more content not included)...[facility] [id number] patient is Moderately Stable - Low risk of patient condition declining or worsening The patient's goals for the shift include rest/comfort The clinical goals for the shift include vss, safety Problem: Pain - Adult Goal: Verbalizes/displays adequate comfort level or baseline comfort level Outcome: Progressing Problem: Safety - Adult Goal: Free from fall injury Outcome: Progressing Flowsheets (Taken 07/26/2025 2300) Free from fall injury: Assess patient frequently for physical needs Identify cognitive and physical deficits and behaviors that affect risk of falls [place] fall precautions as indicated by assessment Educate patient/family on patient safety, including physical limitations Problem: Discharge Planning Goal: Discharge to home or other facility with appropriate resources Outcome: Progressing Flowsheets (Taken 07/26/20251999) Discharge to home or other facility with appropriate resources: Identify barriers to discharge with patient and caregiver Arrange for needed discharge resources and transportation as appropriate Identify discharge learning needs (meds, wound care, etc) Refer to discharge planning if patient needs post-hospital services based on physician order or complex needs related to functional status, cognitive ability or social support system Problem: Chronic Conditions and Co-morbidities Goal: Patient's chronic conditions and co-morbidity symptoms are monitored and maintained or improved Outcome: Progressing Flowsheets (Taken 07/26/20251999) Care Plan - Patient's Chronic Conditions and Co-Morbidity Symptoms are Monitored and Maintained or Improved: Monitor and assess patient's chronic conditions and comorbid symptoms for stability, deterioration, or improvement Collaborate with multidisciplinary team to address chronic and comorbid conditions and prevent exacerbation or deterioration Update acute care plan with appropriate goals if chronic or comorbid symptoms are exacerbated and prevent overall improvement and dischargeNormalUniCincinnati VA Medical Centeron [id number] Attestation with edits by Viet Salas MD at 07/26/2025 8:30 AM By using the attestations below, I agree that I have read and verify that the documentation has been personally reviewed by me and ensure that the documentation accurately reflects the encounter. GC: I personally saw this patient on the day of the encounter, performed the vernon portions of the service and participated in the management and treatment plan of the patient. I reviewed and confirm the documentation by the Cardiovascular Fellow Dr El Boogie. Please note there may be an additional personal documentation from me. he has worsening right heart failure, pulmonary hypertension, tricuspid regurgitation and recent blood testing showed acute renal failure with elevated creatinine. as I explained to him at the office visit, I would proceed with a full hemodynamic study with a right heart catheterization and left heart catheterization and the assessment of the ASD with balloon occlusion and remeasurement of filling pressures during balloon occlusion decide on proceeding with percutaneous ASD closure. Risks benefits and alternatives of the procedure were discussed with the patient who understands and agrees. Viet Salas MD History Of Present Illness Tracie Crain is a 60 y.o. adult with a past medical history of right-sided heart failure systolic failure, pulm hypertension and ASD presents for scheduled ASD repair. Past Medical History Right-sided heart failure (CMS/HCC) Status post mitral [...] failure with improved ejection fraction (HFimpEF) (CMS/HCC) Surgical History She has a past surgical history that includes Mitral valve repair; Hernia repair; and Cardioversion. Social History She reports that she has never smoked. She has never used smokeless tobacco. She reports that she does not currently use alcohol. She reports that she does not use drugs. Allergies Patient has no known allergies. Medications Prescriptions Prior to Admission[1] Review of Systems is negative except as per above Physical Exam Physical Exam Constitutional: Appearance: Normal appearance. He is obese. HENT: Head: Normocephalic and atraumatic. Nose: Nose normal. Mouth: Mucous membranes are moist. Pharynx: Oropharynx is clear. Eyes: Extraocular Movements: Extraocular movements intact. Conjunctiva/sclera: Conjunctivae normal. Cardiovascular: Rate and Rhythm: Normal rate and regular rhythm. Pulses: Normal pulses. Heart sounds: Normal heart sounds. Lower extremities: No edema. Pulmonary: Effort: Pulmonary effort is normal. Breath sounds: Normal breath sounds. Abdominal: General: Abdomen is flat. Palpations: Abdomen is soft. Musculoskeletal: Cervical back: Neck supple. Skin: General: Skin is warm and dry. Neurological: Mental Status: He is alert. Last Recorded Vitals Blood pressure 115/68, pulse 86, resp. rate 16, height 1.905 m (6' 3 ), weight 136 kg (300 lb), SpO2 96%. Relevant Results Echocardiogram 04/15/2025: 1. Global left systolic function [...] gradient 7.6 mmHg. 5. Mild to moderate tr (more content not included)...NormalUnMain Campus Medical CenterNURSNOTEon [id number] report given to Dari, RN & Keiko, RN from [facility] & Leta, RN. civil laboratory technician RN presented site to bedside RN. Bedside RN visualized site and palpated site to ensure there was no hematoma or bruising, and femoral site appears flat. Both bedside RN and farm labor contractor RN mutually agreed that the site presents normal. civil laboratory technician RN and bedside RN either palpated or used a doppler to assess pulses on the patient.\NormalWayne HospitalNURSNOTEReport given to PEDRO Chapin from [facility] RN notified RN of pts procedural intervention site, allergies, IV location/status, and medications given during the procedure. Any diagnostics, abnormal labs, abnormal assessment findings, orders and safety concerns/issues were reviewed. RN encouraged RN receiving handoff to voice any questions or concerns, and answered any questions or concerns if verbalized. RN verbalizes the pt will be coming up to the floor soon.NormalWayne HospitalNURSNOTECHG wipes and betadine nasal swabs completed.Normal [facility] HospitalOrders Onlyon [id number] Tracie Crain 1965 [facility] Provider Department Center 07/26/2025 [facility] None Family History Problem Relation Age of Onset Atrial fibrillation Mother Alzheimer's disease Mother Family Status - Relation Status Age at Mother Alive Father DeceasedNormalUniMary Rutan HospitalLetter (Out)on [id number] [id number] Tracie Crain 1965 [facility] Provider Department Center 07/23/2025 None-None [facility] Family History Problem Relation Age of Onset Atrial fibrillation Mother Alzheimer's disease Mother Family Status - Relation Status Age at Mother Alive Father DeceasedNormalUniversCoshocton Regional Medical CenterLett (Out)on [id number] ([id number] Tracie Crain 1965 [facility] Provider Department Center 07/08/2025 None-None [facility] Family History Problem Relation Age of Onset Atrial fibrillation Mother Alzheimer's disease Mother Family Status - Relation Status Age at Mother Alive Father DeceasedNormalUniMary Rutan HospitalOffice Visiton [id number] [id number] Tracie Crain 1965 [facility] Provider Department Center 04/26/2025 VIET [facility] Family History Problem Relation Age of Onset Atrial fibrillation Mother Alzheimer's disease Mother Family Status - Relation Status Age at Mother Alive Father Level of Service:47196 [place] OFFICE/OUTPATIENT ESTABLISHED HIGH MDM 39 [facility] Onlyon 16-14-8288Fmxsru [id number] Tracie Crain J 1965 M Date Provider Department Center 04/15/2025 [id number], [facility] RUSLAN [facility] Family History Problem Relation Age of Onset Atrial fibrillation Mother Alzheimer's disease Mother Family Status - Relation Status Age at Mother Alive Father DeceasedNormalUniMary Rutan Hospital36on 16-91-125453GpknoyMD Jayna Azevedo MA Please have him reduce hydrochlorothiazide to half tablet once daily and get a repeat BMP in 2 weeks. Advised patient to reduce hydrochlorothiazide and have repeat blood workNormal [facility] HospitalOffice Visiton 59-31-4400Thkxjc-up visit [id number] Tracie Crain 1965 M Date Provider Department Center 01/04/2025 Clifford-VIET SALAS RUSLAN [place] Family History Problem Relation Age of Onset Atrial fibrillation Mother Alzheimer's disease Mother Family Status - Relation Status Age at Mother Alive Father Level of Service:01337 SC OFFICE/OUTPATIENT ESTABLISHED MOD MDM 29 [facility] HealthECHOCARDIO M/2D COMPLETEon 02-05-2023 ECHOCARDIO M/2D COMPLETEPatient: TRACIE CRAIN Exam Date: 02/05/2023 : 1965 Gender:M Ordering : DR VIET SALAS M.D. Admission #: [id number] Family : Order #: [id number] CLICK HERE TO VIEW EXAM ECHOCARDIOGRAM REPORT [...] by: Piotr Jenkins M.D. on 02/05/2023 at 16:31[facility] HospitalBNPon 41-13-0312Zfopddrtoxp peptide B (Bld) [Mass/Vol]859.0 pg/mLNormal <=900.0The [facility] CenterComment on above:Performed By: #### BMP, BNP #### [facility] [address] [place] [address] Dr. Leonie BeckhamPROF CHEM 8 (BAS METB)on 72-96-9827Osukt gap [Moles/Vol]9.9 mmol/LNormalThe [facility] CenterComment on above:Performed By: #### BMP, BNP #### [facility] [address] [place] [address] Dr. Leonie BeckhamCalcium [Mass/Vol]9.4 mg/dLNormal8.5-10.1[facility] Comment on above:Performed By: #### BMP, BNP #### [facility] [address] [place] [address] Dr. Leonie BeckhamChloride [Moles/Vol]102 mmol/HTxnzlv14-031Yfj [facility] Comment on above:Performed By: #### BMP, BNP #### [facility] [address] [address] [address] Leonie BeckhamCO2 [Moles/Vol]32.0 mmol/UXbhptf09.0-32.0The [facility] Comment on above:Performed By: #### BMP, BNP #### [facility] [address] [place] [address] Dr. Leonie BeckhamCreatinine [Mass/Vol]1.17 mg/dLNormal0.70-1.30The [facility] CenterComment on above:Performed By: #### BMP, BNP #### [facility] [address] [place] [address] Dr. Leonie BañuelosGFR-AF COMORAN>60Normal>=60The [facility] CenterComment on above:Performed By: #### BMP, BNP #### [facility] [address] [place] [address] Dr. Leonie BañuelosGFR-NON AF COMORAN>60Normal>=60The [facility] CenterComment on above:Performed By: #### BMP, BNP #### [facility] [address] [place] [address] Dr. Leonie BeckhamGlucose [Mass/Vol]106 mg/aVDgpkkc05-728NjkMarietta [facility] Hospital Comment on above:Performed By: #### BMP, BNP #### [facility] [address] [place] [address] Dr. Leonie BeckhamPotassium [Moles/Vol]3.9 mmol/LNormal3.5-5.1The [facility] Comment on above:Performed By: #### BMP, BNP #### [facility] [address] [place] [address] Dr. Leonie BeckhamSodium [Moles/Vol]140 mmol/UDfjpye905-695Ifl [facility] Comment on above:Performed By: #### BMP, BNP #### [facility] [address] [place], [place] [address] Dr. Leonie Bergeron nitrogen [Mass/Vol]25.0 mg/dLCritically high7.0-18.0[facility] HospitalComment on above:Performed By: #### BMP, BNP #### [facility] [id number] Leonie Bergeron nitrogen/Creatinine [Mass ratio]21.4 mg/mgNormalThe [facility] CenterComment on above:Performed By: #### BMP, BNP #### [facility] [address] [address] [address] Hadley ChangECHOCARDIDiana M/2D COMPLETEon 03-74-5212TFONVDLEPW M/2D COMPLETE Patient: TRACIE CRAIN Exam Date: 11/09/2022 : 1965 Gender:M Ordering : DR VIET SALAS M.D. Admission #: [id number] Family : DR TITUS VILLEGAS . Order #: [id number] CLICK HERE TO VIEW EXAM ECHOCARDIOGRAM REPORT [...] by: Viet Salas M.D. on 11/09/2022 at 16:31NoBlanchard Valley Health System Blanchard Valley HospitalPROF CHEM 8 (BAS METB)on 02-87-6247Ggmrh gap [Moles/Vol]8.0 mmol/LNormal The [facility] CenterComment on above:Performed By: #### BMP #### [facility] [address] [address] [address] Leonie BeckhamCalcium [Mass/Vol]8.6 mg/dLNormal8.5-10.1The [facility] Comment on above:Performed By: #### BMP #### [facility] [address] [address] [address] Leonie BeckhamChloride [Moles/Vol]102 mmol/ZTvnpiv00-676OkeMarietta Memorial Hospital Comment on above:Performed By: #### BMP #### [facility] [address] [address] [address] Leonie BeckhamCO2 [Moles/Vol]31.5 mmol/AHrooyn97.0-32.0[facility] Comment on above:Performed By: #### BMP #### [facility] [address] [address] [address] Leonie BeckhamCreatinine [Mass/Vol]1.13 mg/dLNormal0.70-1.30The [facility] CenterComment on above:Performed By: #### BMP #### [facility] [address] [address] [address] Leonie BañuelosGFR-AF COMORAN>60Normal>=60The [facility] CenterComment on above:Performed By: #### BMP #### [facility] [address] [address] [address] Leonie BañuelosGFR-NON AF COMORAN>60Normal>=60The [facility] CenterComment on above:Performed By: #### BMP #### [facility] [address] [address] [address] Leonie BeckhamGlucose [Mass/Vol]100 mg/xGJzxvke60-031XwtMarietta Memorial Hospital Comment on above:Performed By: #### BMP #### [facility] [address] [address] [address] Leonie BeckhamPotassium [Moles/Vol]3.5 mmol/LNormal3.5-5.1[facility] Comment on above:Performed By: #### BMP #### [facility] [address] [address] [address] Leonie BeckhamSodium [Moles/Vol]138 mmol/IRudhfw603-922Yzm [facility] Comment on above:Performed By: #### BMP #### [facility] [address] [address] [address] Leonie BeckhamUrea nitrogen [Mass/Vol]24.0 mg/dLCritically high7.0-18.0[facility] HospitalComment on above:Performed By: #### BMP #### [facility] [address] [address] [address] Leonie Bergeron nitrogen/Creatinine [Mass ratio]21.2 mg/mgNormalThMetroHealth Main Campus Medical CenterComment on above:Performed By: #### BMP #### [facility] [address] [address] [address] Leonie BañuelosCHOCARESSIE M/2D COMPLETEon 63-54-1302IMAZCIGQGM M/2D COMPLETE Patient: TRACIE CRAIN Exam Date: 06/27/2022 : 1965 Gender:M Ordering : KAI RUFFIN [facility] Admission #: [id number] Family : DR TITUS VILLEGAS . Order #: [id number] CLICK HERE TO VIEW EXAM ECHOCARDIOGRAM REPORT [...] by: Viet Salas M.D. on 06/27/2022 at 18:23[facility] HospitalVC CONSULT FOLLOWUPon 36-67-8821PA CONSULT FOLLOWUPPatient: TRACIE CRAIN Exam Date: 06/13/2022 : 1965 Gender:M Ordering : DR MELIDA CUELLAR M.D. Admission #: [id number] Family : Order #: [id number] CLICK HERE TO VIEW EXAM RADIOLOGY REPORT [...] by: Melida Cuellar MD on 06/13/2022 at 14:59[facility] HospitalVC EXT VENOUS RT LIMITEDon 80-26-6525HM EXT VENOUS RT LIMITEDPatient: TRACIE CRAIN Exam Date: 06/13/2022 : 1965 Gender:M Ordering : DR MELIDA CUELLAR M.D. Admission #: [id number] Family : Order #: [id number] CLICK HERE TO VIEW EXAM RADIOLOGY REPORT [...] veins in the medial right leg. Associated casting operator distal medial also thrombosed 3.1 mm from [...] by: Melida Cuellar MD on 06/13/2022 at 15:42[facility] HospitalVC INJ FOAM SCLERO W US MLTIon 30-29-0102LZ INJ FOAM SCLERO W US MLTIPatient: TRACIE CRAIN. Exam Date: 06/07/2022 : 1965 Gender:M Ordering : DR MELIDA CUELLAR M.D. Admission #: [id number] Family : Order #: [id number] CLICK HERE TO VIEW EXAM RADIOLOGY REPORT [...] to follow up for (more content not included)...[facility] HospitalVC CONSULT FOLLOWUPon 64-17-8734LN CONSULT FOLLOWUPPatient: TRACIE CRAINGabino Exam Date: 06/01/2022 : 1965 Gender:M Ordering : DR MELIDA CUELLAR M.D. Admission #: [id number] Family : Order #: [id number] CLICK HERE TO VIEW EXAM RADIOLOGY REPORT [...] by: Melida Cuellar MD on 06/01/2022 at 09:48[facility] HospitalVC EXT VENOUS LT LIMITEDon 83-13-7993BN EXT VENOUS LT LIMITEDPatient: PARAS TRACIE WilcoxGabino Exam Date: 06/01/2022 : 1965 Gender:M Ordering : DR MELIDA CUELLAR M.D. Admission #: [id number] Family : Order #: [id number] CLICK HERE TO VIEW EXAM RADIOLOGY REPORT [...] 1.4s reflux. *Exam performed in accordance with [facility] practice guidelines- Peripheral venous ultrasound, December 24, 2009. 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 Admission #: [id number] Family : Order #: [id number] CLICK HERE TO VIEW EXAM RADIOLOGY REPORT [...] by: Lynda Aguilar M.D. on 05/25/2022 at 11:44[facility] HospitalVC CONSULT FOLLOWUPon 11-05-5533RG CONSULT FOLLOWUPPatient: PARAS AGUEDA. Exam Date: 05/14/2022 : 1965 Gender:M Ordering : DR MELIDA CUELLAR M.D. Admission #: [id number] Family : Order #: [id number] CLICK HERE TO VIEW EXAM RADIOLOGY REPORT [...] by: Lynda Aguilar M.D. on 05/14/2022 at 09:41[facility] HospitalVC EXT VENOUS RT LIMITEDon 51-23-1994VE EXT VENOUS RT LIMITEDPatient: TRACIE CRAIN. Exam Date: 05/14/2022 : 1965 Gender:M Ordering : DR MELIDA CUELLAR M.D. Admission #: [id number] Family : Order #: [id number] CLICK HERE TO VIEW EXAM RADIOLOGY REPORT [...] by: Lynda Aguilar M.D. on 05/14/2022 at 09:35[facility] HospitalVC ENDOVENOUS ABL PERFORATING RTon 87-26-9628AI ENDOVENOUS ABL PERFORATING RTPatient: TRACIE CRAIN Exam Date: 05/10/2022 : 1965 Gender:M Ordering : DR MELIDA CUELLAR M.D. Admission #: [id number] Family : Order #: [id number] CLICK HERE TO VIEW EXAM RADIOLOGY REPORT PROCEDURE: VEIN CARTHAGE ENDOVENOUS ABLATION FOR VEIN RIGHT GREAT SAPHENOUS VEIN COMPARISON: None. INDICATIONS: Pain co-occurrent and due to varicose veins of bilateral legs I83.813 OPERATIVE REPORT: Diagnosis: Superficial venous reflux, incompetent perforating veins Procedure: Endovenous laser ablation of the left casting operator(s) Procedure: The patient was positioned supine on [...] by: Melida Cuellar MD on 05/10/2022 at 10:50[facility] HospitalVC CONSULT FOLLOWUPon 74-91-4837YW CONSULT FOLLOWUPPatient: TRACIE CRAIN Exam Date: 05/04/2022 : 1965 Gender:M Ordering : DR MELIDA CUELLAR M.D. Admission #: [id number] Family : Order #: [id number] CLICK HERE TO VIEW EXAM RADIOLOGY REPORT [...] by: Lynda Aguilar M.D. on 05/04/2022 at 08:38[facility] HospitalVC EXT VENOUS LT LIMITEDon 04-81-3779HB EXT VENOUS LT LIMITEDPatient: TRACIE CRAIN Exam Date: 05/04/2022 : 1965 Gender:M Ordering : DR MELIDA CUELLAR M.D. Admission #: [id number] Family : Order #: [id number] CLICK HERE TO VIEW EXAM RADIOLOGY REPORT [...] by: Lynda Aguilar M.D. on 05/04/2022 at 08:32[facility] HospitalVC ENDOVENOUS ABL 1ST V LTon 97-21-5394AZ ENDOVENOUS ABL 1ST V LT Patient: TRACIE CRAIN Exam Date: 04/27/2022 : 1965 Gender:M Ordering : DR MELIDA CUELLAR M.D. Admission #: [id number] Family : Order #: [id number] CLICK HERE TO VIEW EXAM RADIOLOGY REPORT [...] by: Lynda Aguilar M.D. on 04/27/2022 at 10:32NoGalion Community Hospital AUTO DIFFon 22-53-6068WDEG #0.1 103/ulNormal0.0-0.1[facility] HospitalComment on above:Performed By: #### CBC ####[facility] [address] [place], [place] [address]Dr.Yilan ChangBasophils/100 WBC (Bld)1.2 %Normal0.2-2.0[facility] on above:Performed By: #### CBC ####[facility] Dkbycsnorz[address] [place], [place] [address]Dr.Yilan ChangEO #0.3 103/ulNormal0.0-0.7[facility] on above:Performed By: #### CBC ####[facility] Terpvqeyqo[address] [place], [place] [address]Dr.Yilan ChangEosinophils/100 WBC (Bld)3.9 %Normal 0.9-7.0The [facility] HospitalComment on above:Performed By: #### CBC ####[facility] Ruhyknrdvu[address] [place], [place] [address]Dr.Leonie Beckham Erythrocyte distribution width (RBC) [Ratio]13.2 %Tvyuty72.0-15.0The [facility] HospitalComment on above:Performed By: #### CBC ####[facility] Khyedutgdi[address] [place], [place] [address]Dr.Leonie BeckhamHematocrit (Bld) [Volume fraction]43.5 %Zggqda72.0-54.0The [facility] HospitalComment on above:Performed By: #### CBC ####[facility] Vkpwcodxhj[address] [place], [place] [address]Dr.Leonie BeckhamHemoglobin (Bld) [Mass/Vol]13.9 g/dL Critically low14.0-18.0The [facility] HospitalComment on above:Performed By: #### CBC ####[facility] Irsrgjzezk[address] [place], [place] [address]Dr. Leonie BeckhamIG #0.03 10e3/ulNormal0.00-0.03The [facility] CenterComment on above: Performed By: #### CBC ####[facility] Xgcxusqxds[address] [place], [place] [address]Dr.Leonie BeckhamIG %0.4 %Normal0.0-0.5The [facility] HospitalComment on above:Performed By: #### CBC ####[facility] Cbiilsxcjx[address] [place], [place] [address]Dr.Leonie BeckhamLYMPH #2.0 103/ulNormal1.2-3.8The [facility] HospitalComment on above:Performed By: #### CBC ####[facility] Hwalxcyrpl[address] [place], [place] [address]Dr. Leonie BeckhamLymphocytes/100 WBC (Bld)25.0 %Paasnq79.5-60.0The [facility] Comment on above:Performed By: #### CBC ####[facility] Eus[address]uwi[address] [place], [place] [address]Dr.Leonie BeckhamMANUAL DIFF REQNONormalThe [facility] HospitalComment on above:Performed By: #### CBC ####[facility] [address] [address]Dr.Kaleighjacob BeckhamBURKE [facility] (RBC) [Entitic mass]30.2 yfLzykrq05.9-34.0The [facility] CenterComment on above: Performed By: #### CBC ####[facility] Ohqxxzujzy[address] [place], [place] [address]Dr.Leonie BeckhamCENTRAL PARK [facility] (RBC) [Mass/Vol]32.0 g/dLNormal 29.9-35.2The [facility] HospitalComment on above:Performed By: #### CBC ####[facility] Nditvafytj[address] [place], [place] [address]Dr. Leonie BeckhamV (RBC) [Entitic vol]94.4 fLCritically high80.0-94.0The [facility] CenterComment on above:Performed By: #### CBC ####[facility] Qbvjxabclb[address] [place], [place] [address]Dr.Leonie GastonO #1.0 103/ulCritically high0.3-0.8The [facility] CenterComment on above:Performed By: #### CBC ####[facility] Ucjb[address]xiua[address] [place], [place] [address]DrRosa Maria BeckhamMonocytes/100 WBC (Bld)12.0 %Normal1.7-12.0The [facility] CenterComment on above:Performed By: #### CBC ####[facility] Ybizrthvfn[address] [place], [place] [address]DrRosa Maria CarneyUT #4.6 103/ulNormal1.4-6.5The [facility] CenterComment on above:Performed By: #### CBC ####[facility] Nkiyxbyqsw[address] [place], [place] [address]DrGabino BeckhamNeutrophils/100 WBC (Bld)57.5 %Rgxepv50.0-75.0The [facility] Comment on above:Performed By: #### CBC ####[facility] Wnabbqtisj[address] [place], [place] [address]DrRosa Maria BeckhamPlatelet mean volume (Bld) [Entitic vol]9.4 fLCritically low9.5-13.5The [facility] CenterComment on above: Performed By: #### CBC ####[facility] [address] [address]Dr.Leonie BeckhamPLT203 103/oyJylkqf494-573Ary [facility] CenterComment on above:Performed By: #### CBC ####[facility] S[address] [place], [place] [address]Dr.Leonie ChangRBC4.61 106/ul Critically low4.70-6.10The [facility] CenterComment on above:Performed By: #### CBC ####[facility] Bl[address]kw[address] [place], [place] [address]Dr. Leonie BeckhamWBC8.0 103/ulNormal4.0-11.0The [facility] CenterComment on above: Performed By: #### CBC ####[facility] Vlnpgefgwh[address] [place], [place] [address]Dr.Kaleighjacob ChangFREE T3on 35-03-7392UHZV T32.54 pg/mlL Normal2.18-3.98[facility] on above:Performed By: #### TSH, LIPID, CMP, T4, FT3 ####[facility] N[address]cdi[address] [place], [place] [address]Dr. Leonie BeckhamGLYCOHEMOGLOBIN A1Con 21-60-5158GSS RECOMMENDATIONSEE BELOWNoBlanchard Valley Health System Blanchard Valley HospitalComtrinity health grand [facility] hospital on above:Result Comment: ADA RECOMMENDED LIMIT 4.0 - 6.0 ADA THERAPEUTIC TARGET < 7.0 ACTION SUGGESTED > 7.0Performed By: #### A1C ####[facility] Aviblfrlgm[address] [place], [place] [address]Dr.Kaleighjacob ChapincitoGlucose [Mass/Vol]126 mg/dL NormalThe [facility] Medical CenterComtrinity health grand haven hospital on above:Performed By: #### A1C ####[facility] Zhfjpijyqu[address] [place], [place] [address]Dr.Kaleighjacob IimnxCvG5i (Bld) [Mass fraction]6.0 %Normal4.5-6.2The [facility] CenterComment on above: Performed By: #### A1C ####[facility] Uxtygzrwff[address] [place], [place] [address]Dr.Yijacob BeckhamLIPID PROFILEon 05-63-6480HBAB-HDL RATIO NORMSEE BELOWAvita Health System Galion HospitalComment on above:Result Comment: 3.3 - 4.4 LOW RISK 4.4 - 7.1 AVERAGE RISK 7.1 - 11.0 MODERATE RISK >11.0 HIGH RISK Performed By: #### TSH, LIPID, CMP, T4, FT3 ####[facility] [address] [address]Dr. Yilan ChangCholesterol [Mass/Vol]137 mg/dLNormal<=200[facility] on above:Performed By: #### TSH, LIPID, CMP, T4, FT3 ####[facility] [address] [address]Dr. Yilan ChangCholesterol in HDL [Mass/Vol]40 mg/gZTseyjx96-65 The [facility] CenterComtrinity health grand [facility] hospital on above:Performed By: #### TSH, LIPID, CMP, T4, FT3 ####[facility] Aprzlpqvym[address] [place], [place] [address]Dr. Yilan ChangCholesterol in LDL [Mass/Vol]84.0 mg/dLAvita Health System Galion Hospital Comment on above:Performed By: #### TSH, LIPID, CMP, T4, FT3 ####[facility] Rkmnlylzpq[address] [place], [place] [address]Dr. Yijacob Beckham Cholesterol.total/Cholesterol in HDL [Mass ratio]3.4 {ratio}NormalSelect Medical [facility] Hospital on above:Performed By: #### TSH, LIPID, CMP, T4, FT3 ####[facility] Qtmmlsfvpj[address] [place], [place] [address]Dr. Yilan ChangHDL NORMAL> or = 60 mg/dl - LOW CARDIOVASCULAR RISK <40 mg/dl - HIGH CARDIOVASCULAR RISKAvita Health System Galion HospitalComment on above:Performed By: #### TSH, LIPID, CMP, T4, FT3 ####[facility] [address] [address]Dr. Leonie BeckhamLDL CALC NORMALSEE BELOWNoBlanchard Valley Health System Blanchard Valley HospitalComment on above:Result Comment: <100 mg/dl OPTIMAL 100 - 129 mg/dl NEAR OR ABOVE OPTIMAL 130 - 159 mg/dl BORDERLINE HIGH 160 - 189 mg/dl HIGH >190 mg/dl VERY HIGHPerformed By: #### TSH, LIPID, CMP, T4, FT3 ####[facility] [address] [address]Dr. Leonie Beckham Triglyceride [Mass/Vol]65 mg/dLNormal<=150The [facility] CenterComment on above: Performed By: #### TSH, LIPID, CMP, T4, FT3 ####[facility] Sartwhrjrx[address] [place], [place] [address]Dr. Leonie BeckhamVLDL CALC13.0 mg/dLNoBlanchard Valley Health System Blanchard Valley HospitalComment on above:Performed By: #### TSH, LIPID, CMP, T4, FT3 ####[facility] Oipcbumjpa[address] [place], [place] [address]Dr. Leonie BeckhamPROF 14(COMP METB)on 15-70-1166Aktetpb [Mass/Vol]3.8 g/dLNormal 3.4-5.0[facility] on above:Performed By: #### TSH, LIPID, CMP, T4, FT3 ####[facility] [address] [address]Dr. Leonie BeckhamAlbumin/Globulin [Mass ratio]1.2 {ratio}NormalThe [facility] CenterComment on above:Performed By: #### TSH, LIPID, CMP, T4, FT3 ####[facility] [address] [address]Dr. Leonie BeckhamALP [Catalytic activity/Vol]81 U/FSnecvr34-728Qpg [facility] Comment on above:Performed By: #### TSH, LIPID, CMP, T4, FT3 ####[facility] [address] [address]Dr. Leonie BeckhamALT [Catalytic activity/Vol]35 U/TWoycnr42-22Obm [facility] on above: Performed By: #### TSH, LIPID, CMP, T4, FT3 ####[facility] [address]qkn[address] [place], [place] [address]Dr. Yilan ChangAnion gap [Moles/Vol]10.8 mmol/LNormalThe [facility] CenterComtrinity health [facility] hospital on above:Performed By: #### TSH, LIPID, CMP, T4, FT3 ####[facility] Zvpufampim[address] [place], [place] [address]Dr. Yilan ChangAST [Catalytic activity/Vol]22 U/TWrvisf47-38Luf [facility] on above:Performed By: #### TSH, LIPID, CMP, T4, FT3 ####[facility] [address]lsfsbhty[address] [place], [place] [address]Dr. Yilan ChangBilirubin [Mass/Vol]1.1 mg/dLCritically high0.2-1.0[facility] on above:Performed By: #### TSH, LIPID, CMP, T4, FT3 ####[facility] Byuqqobyyg[address] [place], [place] [address]Dr. Yilan ChangCalcium [Mass/Vol]8.6 mg/dLNormal8.5-10.1[facility] on above:Performed By: #### TSH, LIPID, CMP, T4, FT3 ####[facility] [address]jtfdcux[address] [place], [place] [address]Dr. Yilan ChangChloride [Moles/Vol]105 mmol/MOyugiu92-033Cyk [facility] on above:Performed By: #### TSH, LIPID, CMP, T4, FT3 ####[facility] [address]qdzbqigwj[address] [place], [place] [address]Dr. Yilan ChangCO2 [Moles/Vol]28.2 mmol/LNormal 21.0-32.0[facility] on above:Performed By: #### TSH, LIPID, CMP, T4, FT3 ####[facility] [address]ocvizvy[address] [place], [place] [address]Dr. Yilan ChangCreatinine [Mass/Vol]1.33 mg/dLCritically high0.70-1.30[facility] on above:Performed By: #### TSH, LIPID, CMP, T4, FT3 ####[facility] [address] [address]Dr. Yilan ChangEGFR-AF COMORAN>60Normal>=60The [facility] CenterComment on above: Performed By: #### TSH, LIPID, CMP, T4, FT3 ####[facility] [address] [address]Dr. Yilan ChangEGFR-NON AF IJWXWTYH78 mL/min/1.11o0Mpcsdzitko low>=60[facility] on above:Performed By: #### TSH, LIPID, CMP, T4, FT3 ####[facility] Ysdpfzzgky[address] [place], [place] [address]Dr. Yilan ChangGlobulin (S) [Mass/Vol]3.3 g/dLNormal The [facility] [facility] CenterComtr[facility] on above:Performed By: #### TSH, LIPID, CMP, T4, FT3 ####[facility] [address] [place], [place] [address]Dr. Yilan ChangGlucose [Mass/Vol]94 mg/kAXwrhuo68-731Lpm [facility] on above:Performed By: #### TSH, LIPID, CMP, T4, FT3 ####[facility] [address] [address]Dr. Yilan ChangPotassium [Moles/Vol]4.0 mmol/LNormal3.5-5.1[facility] on above: Performed By: #### TSH, LIPID, CMP, T4, FT3 ####[facility] [address] [place], [place] [address]Dr. Yilan ChangProtein [Mass/Vol]7.1 g/dL Normal6.4-8.2[facility] on above:Performed By: #### TSH, LIPID, CMP, T4, FT3 ####[facility] [address] [address]Dr. Yilan ChangSodium [Moles/Vol]140 mmol/CHulyns711-436Nji [facility] CenterComment on above:Performed By: #### TSH, LIPID, CMP, T4, FT3 ####[facility] [address] [address]Dr. Leonie ChangUrea nitrogen [Mass/Vol]24.0 mg/dLCritically high7.0-18.0The [facility] CenterComment on above:Performed By: #### TSH, LIPID, CMP, T4, FT3 ####[facility] [address] [address]Dr. Kaleighlan ChangUrea nitrogen/Creatinine [Mass ratio]18.0 mg/mgNormalThe [facility] CenterComment on above:Performed By: #### TSH, LIPID, CMP, T4, FT3 ####[facility] [address] [address]Dr. Leonie WpmcfA3ah 91-13-0316I0 [Mass/Vol]7.70 ug/dLNormal4.50-12.10The [facility] CenterComment on above:Performed By: #### TSH, LIPID, CMP, T4, FT3 ####[facility] [address] [address]Dr. Leonie BeckhamTSHon 12-99-9693TWP3.042 uIU/mLNormal0.358-3.740[facility] Comment on above:Performed By: #### TSH, LIPID, CMP, T4, FT3 ####[facility] [address] [address]Dr. Leonie ChapincitoVC COMP CONSULTATIONon 11-19-1605GO COMP CONSULTATIONPatient: TRACIE CRAIN Exam Date: 03/08/2022 : 1965 Gender:M Ordering : DR TITUS VILLEGAS . 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 The [...] MD on 03/08/2022 a (more content not included)...Normal The [facility] CenterAmbulatory Clinical Summaryon 92-92-8345Eaxjjafnrt Clinical Summary{on-55-3l-r6-ka-o4-24-73-r0-95-09-98-23-c7-ff-9b}CD:[id number] Clinic Euclid HospitalCoding Summary.on 28-92-1214Gjzdhj Summary.CODING DATE: 12/19/2020 FINAL [facility] STATUS: Home (Routine DC) PAYOR: Commercial [...] in slightly different terminology. Coded By: Jimbo HamptonElba Date Saved: 12/19/2020 11:58 pmNormalFisher Thomas B. Finan CenterGeneral Surgery Office/Clinic Noteon 23-48-0329Inegsea Surgery Office/Clinic NoteChief Complaint follow up excisional biopsy HPI Staff [...] swallowing difficulties, no hearing loss, no ear infection(s),no nose bleeds. Cardiovascular: normal blood pressure, no [...] BONG ADKINS, Tracie Diaz if needed [address] [place] [address]- Additional Instructions: Problem List/Past Medical History Ongoing [...] virus vaccine, inactivated - Not Given Patient RefusesSalem Regional Medical CenterComment on above:Result Comment: Electronically Signed By: Tracie WOODY MD\Date and Time Signed: 12/20/20 15:58 EDTAmbulatory Clinical Summaryon 60-19-3462Arqshbfbqw Clinical Summary {06-ol-r1-n2-04-1n-22-4v-y6-95-02-g7-34-58-29-5e}CD:[id number] Regional Medical CenterGeneral Surgery Office/Clinic Noteon 76-23-4487Yvjktlr Surgery Office/Clinic NoteHPI Staff 55 year old male here for [...] swallowing difficulties, no hearing loss, no ear infection(s),no nose bleeds. Cardiovascular: normal blood pressure, no [...] sutures; tolerated well; ebl < 5 ml; steriledressing applied. Assessment/Plan 1. Neoplasm of uncertain behavior [...] virus vaccine, inactivated - Not Given Patient RefusesSalem Regional Medical CenterComment on above:Result Comment: Electronically Signed By: BONG ADKINS, Tracie Gonzalez\.br\Date and Time Signed: 12/09/20 09:30 ESTProvider Letter FTon 16-96-3357Irshfkpa Letter [facility] Titus Villegas, [facility] [place] [address] Re: TRCAIE CRAIN Date of : 1965 Thank you for your referral of Tracie Crain who was seen on consultation on November 29, 2020, for growth on left lower back that is changing. An excisional biopsy is planned. I have enclosed my consultation notes for your review. I will be happy to follow Tracie. Sincerely, rTacie Woody MD General SurgerySalem Regional Medical CenterAmbulatory Clinical Summaryon 10-84-4027Nivxklavnj Clinical Summary {7x-0e-62-ye-39-81-1n-d8-7i-46-[id number]-aa-cd-69}CD:086162ZldrtsVbjdznCleveland Clinic Euclid HospitalPhysician Referralon 45-27-1278Ttktaockk Referral [id number]:127NoCleveland Clinic Euclid HospitalOperative Reporton 50-04-8060Sdvqgagdh ReportMR#: [id number] [facility] Pt. Name: Tracie Crain Room #: [...] form. 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 [address], [facility] [address] Timbo Black MD [address] [place] [address]YvygaxNiaKettering HealthBASIC METABOLIC PANELon 87-32-3897Afjagru [Mass/Vol]9.4 mg/dLNormal8.6-10.3The [facility] HospitalComment on above:Performed By: #### 73357, 08255, 46404, 24361, 99988 #### [facility] [address] [place] [address], USAChloride [Moles/Vol]99 mmol/YNndlzy67-867Ejm [facility] HospitalComment on above:Performed By: #### 25461, 27551, 05066, 27916, 94525 #### [facility] [address] [place] [address], USACO2 [Moles/Vol]31 mmol/WNnouew97-27Lak [facility] HospitalComment on above:Performed By: #### 01016, 93134, 96181, 52138, 78963 #### [facility] [address] [place] [address], USACreatinine [Mass/Vol]1.22 mg/dLNormal0.70-1.30The [facility] HospitalComment on above:Performed By: #### 18545, 36674, 97931, 06594, 07021 #### [facility] [address] [place] [address], USAGFR/1.73 sq M predicted among blacks MDRD (S/P/Bld) [Vol rate/Area]mL/min/{1.73_m2}Normal>60The [facility] Comment on above:Performed By: #### 06451, 79703, 95004, 91009, 02154 #### [facility] [address] [place] [address], USAGFR/1.73 sq M predicted among non-blacks MDRD (S/P/Bld) [Vol rate/Area]mL/min/{1.73_m2}Normal>60[facility] [place] [facility] Comment on above:Performed By: #### 19857, 03331, 69941, 33995, 51726 #### [facility] [address] [place] [address], USAGlucose [Mass/Vol]126 mg/yMIgxw22-030You [facility] HospitalComment on above:Performed By: #### 85761, 64936, 86992, 74794, 66637 #### [facility] [address] [place] [address], USAPotassium [Moles/Vol]3.8 mmol/LNormal3.5-5.1The [facility] HospitalComment on above:Performed By: #### 31259, 56732, 88614, 89666, 35575 #### [facility] [address] [place] [address], USASodium [Moles/Vol]139 mmol/PYknuxk706-840Rwo [facility] HospitalComment on above:Performed By: #### 58302, 47556, 24207, 99082, 03183 #### [facility] [address] [place] [address], USAUrea nitrogen [Mass/Vol]15 mg/dLNormal7-25The [facility] HospitalComment on above:Performed By: #### 89145, 49920, 59349, 56635, 88778 #### [facility] [address] [place] [address], USABNP (B-TYPE NATRIURETIC PEPTIDE)on 64-23-3847Phnhjxmzxwo peptide B (Bld) [Mass/Vol]502 pg/mLHigh0-100The [facility] HospitalComment on above:Result Comment: Given the appropriate clinical setting a BNP result of >100 pg/mL indicates congestive heart failure.Performed By: #### 72124, 51213, 35300, 73548, 42676 #### [facility] [address] [place] [address], USACBC W/DIFFon 96-80-7236AAS BASOPHILS0.1 10*3/uLNormal 0.0-0.2The [facility] HospitalComment on above:Performed By: #### 00118, 56968, 80724, 88045, 67150 #### [facility] [address] [place] [address], USAABS IMM GRANS0.0 10*3/uLNormal0.0-0.2The [facility] HospitalComment on above:Performed By: #### 59037, 81969, 29219, 06265, 42153 #### [facility] [address] [place] [address], USAABS NEUTROPHILS5.1 10*3/uLNormal1.6-7.6The [facility] HospitalComment on above:Performed By: #### 55237, 17172, 83187, 71896, 22274 #### [facility] [address] [place] [address], USABasophils/100 WBC (Bld)1.5 %High0.0-1.0The [facility] HospitalComment on above:Performed By: #### 94256, 36327, 26676, 14435, 02657 #### [facility] [address] [place] [address], USAEosinophils (Bld) [#/Vol]0.3 10*3/uLNormal0.0-0.5The [facility] HospitalComment on above:Performed By: #### 57202, 19168, 17385, 91855, 68920 #### [facility] [address] [place] [address], USAEosinophils/100 WBC (Bld)3.7 %Normal0.0-6.0The [facility] HospitalComment on above:Performed By: #### 22850, 93230, 09672, 52807, 55037 #### [facility] [address] [place] [address], USAErythrocyte distribution width (RBC) [Ratio]13.2 %Normal 11.5-15.0The [facility] HospitalComment on above:Performed By: #### 42762, 09470, 88343, 17584, 26321 #### [facility] [address] [place] [address], USAHematocrit (Bld) [Volume fraction]39.2 %Dpdyya54.0-50.0The [facility] HospitalComment on above:Performed By: #### 84606, 54026, 37105, 06897, 85896 #### [facility] [address] [place] [address], [facility] HOSPITALHemoglobin (Bld) [Mass/Vol]12.4 g/dLLow13.0-17.0The [facility] HospitalComment on above:Performed By: #### 03228, 12133, 21823, 80112, 97097 #### [facility] [address] [place] [address], USAIMMATURE GRANS0.4 %Normal0.0-1.0The [facility] HospitalComment on above:Performed By: #### 27009, 97459, 11181, 80222, 40710 #### [facility] [address] [address], USALymphocytes (Bld) [#/Vol]1.7 10*3/uLNormal1.2-4.0The [facility] HospitalComment on above:Performed By: #### 30515, 64083, 33466, 97393, 70553 #### [facility] [address] [place] [address], USALymphocytes/100 WBC (Bld)21.2 %Bdeifh22.0-45.0The [facility] HospitalComment on above:Performed By: #### 61608, 25342, 75144, 48203, 13029 #### [facility] [address] [place] [address], [facility] (RBC) [Entitic mass]28.8 czUqquoo73.0-33.0The [facility] HospitalComment on above:Performed By: #### 95917, 29232, 43402, 70840, 16061 #### [facility] [address] [place] [address], [facility] ALTUSHC (RBC) [Mass/Vol]31.6 g/dLLow32.0-35.0The [facility] HospitalComment on above:Performed By: #### 53327, 43449, 69737, 66345, 62640 #### [facility] [address] [place] [address], [facility] ALTUSV (RBC) [Entitic vol]91.0 wSZldbiq59.0-98.0The [facility] HospitalComment on above:Performed By: #### 87038, 23408, 77192, 48555, 68407 #### [facility] [address] [place] [address], [facility] HOSPITALMonocytes (Bld) [#/Vol]0.9 10*3/uLNormal0.1-1.0The [facility] HospitalComment on above:Performed By: #### 66176, 27609, 83362, 35759, 95032 #### [facility] [address] [facility] [address], SYCOOUZV02.6 %Normal5.0-12.0The [facility] HospitalComment on above:Performed By: #### 17892, 57867, 22617, 11533, 09457 #### [facility] [address] [place] [address], USANeutrophils/100 WBC (Bld)62.6 %Mklvdb66.0-72.0The [facility] HospitalComment on above:Performed By: #### 67748, 09671, 62006, 11985, 66732 #### [facility] [address] [place] [address], USANucleated RBC/100 WBC (Bld) [Ratio]0 %Normal0-0The [facility] HospitalComment on above:Performed By: #### 81161, 91668, 48079, 30945, 32462 #### [facility] [address] [place] [address], USAPLAT AAE223 10*3/gXAhet605-625Zfg [facility] HospitalComment on above:Performed By: #### 97219, 80485, 90817, 23576, 88943 #### [facility] [address] [place] [address], USARBC (Bld) [#/Vol]4.31 10*6/uLNormal4.20-5.70The [facility] HospitalComment on above:Performed By: #### 47359, 94843, 56844, 79464, 85647 #### [facility] [address] [place] [address], USAWBC (Bld) [#/Vol]8.20 10*3/uLNormal4.00-10.60The [facility] HospitalComment on above:Performed By: #### 66180, 73028, 46000, 65673, 76616 #### [facility] [address] [place] [address], USAHEMOGLOBINon 91-23-0036Xtevrdrjfs (Bld) [Mass/Vol]CANCELED Storcy36.0-17.0The [facility] HospitalComment on above:Result Comment: The released value 12.3 was canceled by OCREEGER on 04/07/2019 12:48 Performed By: #### 01777, 17149, 59737, 06038, 35597 #### [facility] [address] [place] [address], USABASIC METABOLIC PANELon 05-89-5213Abkxufz [Mass/Vol]9.0 mg/dLNormal8.6-10.3The [facility] HospitalComment on above:Order Comment: No: Do not add to previous drawPerformed By: #### 84318, 07662, 94225, 89830, 53306 #### [facility] [address] [place] [address], USAChloride [Moles/Vol]98 mmol/YMlszog30-306Jkz [facility] HospitalComment on above:Order Comment: No: Do not add to previous drawPerformed By: #### 66076, 04828, 93946, 12260, 50940 #### [facility] [address] [place] [address], USACO2 [Moles/Vol]29 mmol/PFhrdzb48-98Ssn [facility] HospitalComment on above:Order Comment: No: Do not add to previous draw Performed By: #### 80870, 36953, 08062, 07081, 45374 #### [facility] [address] [place] [address], USACreatinine [Mass/Vol]1.00 mg/dLNormal0.70-1.30The [facility] HospitalComment on above:Order Comment: No: Do not add to previous drawPerformed By: #### 49401, 45614, 31580, 18051, 18957 #### [facility] [address] [place] [address], USAGFR/1.73 sq M predicted among blacks MDRD (S/P/Bld) [Vol rate/Area]mL/min/{1.73_m2}Normal>60The [facility] Comment on above:Order Comment: No: Do not add to previous drawPerformed By: #### 09063, 88398, 53146, 86302, 85121 #### [facility] [address] [place] [address], USAGFR/1.73 sq M predicted among non-blacks MDRD (S/P/Bld) [Vol rate/Area]mL/min/{1.73_m2}Normal>60The [facility] Comment on above:Order Comment: No: Do not add to previous drawPerformed By: #### 67960, 65093, 76950, 30990, 87298 #### [facility] [address] [place] [address], USAGlucose [Mass/Vol]96 mg/uAQadjgm70-587Yuh [facility] HospitalComment on above:Order Comment: No: Do not add to previous drawPerformed By: #### 15931, 39026, 62340, 46830, 85280 #### [facility] [address] [place] [address], USAPotassium [Moles/Vol]3.1 mmol/LLow3.5-5.1The [facility] HospitalComment on above:Order Comment: No: Do not add to previous drawPerformed By: #### 37085, 92502, 13374, 12598, 07723 #### [facility] [address] [place] [address], USASodium [Moles/Vol]138 mmol/AGuqukm047-376Uyu [facility] HospitalComment on above:Order Comment: No: Do not add to previous drawPerformed By: #### 77264, 66711, 75083, 55266, 98163 #### [facility] [address] [place] [address], USAUrea nitrogen [Mass/Vol]24 mg/dLNormal7-25The [facility] HospitalComment on above:Order Comment: No: Do not add to previous drawPerformed By: #### 49912, 50200, 82400, 30575, 58146 #### [facility] [address] [place] [address], USACBC COMPLETE BLOOD COUNTon 05-93-5700Hwqvehfhjru distribution width (RBC) [Ratio]13.6 %Iupffl40.5-15.0The [facility] HospitalComment on above:Order Comment: No: Do not add to previous draw Performed By: #### 63105, 13550, 06480, 17529, 33347 #### [facility] [address] [place] [address], USAHematocrit (Bld) [Volume fraction]34.7 %Low39.0-50.0The [facility] HospitalComment on above:Order Comment: No: Do not add to previous drawPerformed By: #### 49206, 50791, 14452, 58310, 52322 #### [facility] [address] [place] [address], USAHemoglobin (Bld) [Mass/Vol]11.3 g/dLLow13.0-17.0The [facility] HospitalComment on above:Order Comment: No: Do not add to previous drawPerformed By: #### 04010, 29694, 33206, 81998, 95094 #### [facility] [address] [place] [address], [facility] (RBC) [Entitic mass]28.8 faJgozvl44.0-33.0The [facility] HospitalComment on above:Order Comment: No: Do not add to previous drawPerformed By: #### 64636, 92205, 27631, 94094, 94161 #### [facility] [address] [place] [address], [facility] HOSPITALMCHC (RBC) [Mass/Vol]32.6 g/fISlfxer58.0-35.0The [facility] HospitalComment on above:Order Comment: No: Do not add to previous drawPerformed By: #### 94476, 36019, 92690, 59243, 09525 #### [facility] [address] [place] [address], [facility] ALTUSV (RBC) [Entitic vol]88.5 lCGrctxc54.0-98.0The [facility] HospitalComment on above:Order Comment: No: Do not add to previous drawPerformed By: #### 01315, 78403, 44811, 85110, 61605 #### [facility] [address] [place] [address], USANucleated RBC/100 WBC (Bld) [Ratio]0 %Normal0-0The [facility] HospitalComment on above:Order Comment: No: Do not add to previous drawPerformed By: #### 40100, 44656, 55654, 54499, 78129 #### [facility] [address] [place] [address], USAPLAT ALS287 10*3/mKPmpfdu535-153Pnb [facility] HospitalComment on above:Order Comment: No: Do not add to previous draw Performed By: #### 23063, 73983, 18657, 05158, 55863 #### [facility] [address] [place] [address], USARBC (Bld) [#/Vol]3.92 10*6/uLLow4.20-5.70The [facility] HospitalComment on above:Order Comment: No: Do not add to previous drawPerformed By: #### 63097, 72413, 19302, 85187, 54921 #### [facility] [address] [place] [address], USAWBC (Bld) [#/Vol]11.83 10*3/uLHigh4.00-10.60The [facility] HospitalComment on above:Order Comment: No: Do not add to previous drawPerformed By: #### 91619, 48927, 71751, 79325, 79051 #### [facility] [address] [place] [address], USAMAGNESIUM BLOODon 40-73-3680Helztmabh [Mass/Vol]2.3 mg/dL Normal1.9-2.7The [facility] HospitalComment on above:Order Comment: No: Do not add to previous drawPerformed By: #### 01931, 48184, 77056, 19354, 32621 #### [facility] [address] [place] [address], USAPOC GLUCOSE LABon 10-74-3211Tjyeyqy [Mass/Vol]115 mg/dLHigh 70-100Main Campus Medical CenterComment on above:Performed By: #### 93922, 06406, 86423, 17800, 28864 #### [facility] [address] [facility] [place] [address], USAGlucose [Mass/Vol]96 mg/pTYjrjcn64-380Tst [facility] HospitalComment on above:Performed By: #### 64691, 27310, 96162, 19879, 07863 #### [facility] [address] [place] [address], USAPORTABLE CHEST 1 VIEWon 79-19-4696AFNAZLRX CHEST 1 VIEW [facility] Department of Radiology [address] [place] [id number] Patient Name: TRACIE CRAIN : 1965 Sex: M Age: Race: NA Pt. Location: [id number] Patient Status: I Ordered Date: 03/27/2019 5:00:00 AM Completed Date: 03/27/2019 04:24 AM Requesting Provider: TIMBO BLACK Attending Provider: TIMBO BLACK Report Copy To: Signs & Symptoms: Pneumonia History: Patient history not available Comments: R/O Pneumonia Exam: PORTABLE CHEST 1 VIEW PORTABLE CHEST 1 VIEW 03/27/2019 4:24 AM [...] findings. Electronically signed by:Divya Collins. Transcribed by: [email or web address], User Resident: ANAI ALVARADO Electronically Signed by: DIVYA COLLINS @ 03/27/2019 09:07 AM I personally read this/these film(s) with this residentFirelands Regional Medical CenterComment on above:Order Comment: No: Do not add to previous drawBASIC METABOLIC PANELon 72-13-8730Upgfytl [Mass/Vol]9.2 mg/dLNormal8.6-10.3 The [facility] HospitalComment on above:Order Comment: No: Do not add to previous drawPerformed By: #### 13487, 03279, 66859, 02658, 45205 #### [facility] [address] [place] [address], USAChloride [Moles/Vol]101 mmol/DAkgniu68-785Ovg [facility] HospitalComment on above:Order Comment: No: Do not add to previous drawPerformed By: #### 37110, 77638, 20187, 19926, 95093 #### [facility] [address] [place] [address], USACO2 [Moles/Vol]27 mmol/CHvjuyi31-79Dgr [facility] HospitalComment on above:Order Comment: No: Do not add to previous draw Performed By: #### 84392, 13932, 11070, 28893, 57393 #### [facility] [address] [place] [address], USACreatinine [Mass/Vol]0.93 mg/dLNormal0.70-1.30The [facility] HospitalComment on above:Order Comment: No: Do not add to previous drawPerformed By: #### 75938, 41768, 18753, 87840, 98147 #### [facility] [address] [place] [address], USAGFR/1.73 sq M predicted among blacks MDRD (S/P/Bld) [Vol rate/Area]mL/min/{1.73_m2}Normal>60The [facility] Comment on above:Order Comment: No: Do not add to previous drawPerformed By: #### 84158, 26976, 69557, 28299, 43174 #### [facility] [address] [place] [address], USAGFR/1.73 sq M predicted among non-blacks MDRD (S/P/Bld) [Vol rate/Area]mL/min/{1.73_m2}Normal>60The [facility] Comment on above:Order Comment: No: Do not add to previous drawPerformed By: #### 88047, 59883, 48604, 60549, 71468 #### [facility] [address] [place] [address], USAGlucose [Mass/Vol]111 mg/sGTdqu67-273Ayt [facility] HospitalComment on above:Order Comment: No: Do not add to previous drawPerformed By: #### 00726, 39067, 59501, 46212, 72674 #### [facility] [address] [place] [address], USAPotassium [Moles/Vol]3.9 mmol/LNormal3.5-5.1The [facility] HospitalComment on above:Order Comment: No: Do not add to previous drawPerformed By: #### 90850, 21589, 61896, 32094, 67682 #### [facility] [address] [place] [address], USASodium [Moles/Vol]137 mmol/RBwdqtm733-579Uge [facility] HospitalComment on above:Order Comment: No: Do not add to previous drawPerformed By: #### [id number], 93227, 65396, 67430, 42206 #### [facility] [address] [address], USAUrea nitrogen [Mass/Vol]26 mg/dLHigh7-25The [facility] HospitalComment on above:Order Comment: No: Do not add to previous drawPerformed By: #### 97558, 98127, 08036, 94772, 75543 #### [facility] [address] [place] [address], [facility]ITALCB W/DIFFon [id number] BASOPHILS0.1 10*3/uLNormal 0.0-0.2The [facility] HospitalComment on above:Order Comment: No: Do not add to previous drawPerformed By: #### 50562, 23535, 26733, 32751, 95005 #### [facility] [address] [place] [address], [place]AABS IMM GRANS0.5 10*3/uLHigh0.0-0.2The [facility] HospitalComment on above:Order Comment: No: Do not add to previous draw Performed By: #### 09297, 01419, 48544, 40846, 02771 #### [facility] [address] [place] [address], USAABS YAMKZYBDNPC69.2 10*3/uLHigh1.6-7.6The [facility] HospitalComment on above:Order Comment: No: Do not add to previous drawPerformed By: #### 27826, 19769, 49438, 52459, 96768 #### [facility] [address] [place] [address], USABasophils/100 WBC (Bld)0.6 %Normal0.0-1.0The Wayne HospitalComment on above:Order Comment: No: Do not add to previous drawPerformed By: #### 78115, 64412, 51945, 79135, 62744 #### [facility] [address] [place] [address], [facility] HOSPITALEosinophils (Bld) [#/Vol]0.4 10*3/uLNormal0.0-0.5The Wayne HospitalComment on above:Order Comment: No: Do not add to previous drawPerformed By: #### 11796, 12821, 71309, 27048, 07002 #### [facility] [address] [place] [address], USAEosinophils/100 WBC (Bld)2.8 %Normal0.0-6.0The [facility] HospitalComment on above:Order Comment: No: Do not add to previous drawPerformed By: #### 00007, 02959, 37577, 77198, 54254 #### [facility] [address] [facility] [address], USAErythrocyte distribution width (RBC) [Ratio]13.6 %Normal 11.5-15.0The Wayne HospitalComment on above:Order Comment: No: Do not add to previous drawPerformed By: #### 84467, 62958, 78996, 77778, 24443 #### [facility] [address] [place] [address], USAHematocrit (Bld) [Volume fraction]34.5 %Low39.0-50.0The Wayne HospitalComment on above:Order Comment: No: Do not add to previous drawPerformed By: #### 54841, 66990, 40449, 39823, 90381 #### [facility] [address] [place] [address], USAHemoglobin (Bld) [Mass/Vol]11.3 g/dLLow13.0-17.0The [facility] HospitalComment on above:Order Comment: No: Do not add to previous drawPerformed By: #### 57660, 97405, 60433, 91012, 30105 #### [facility] [address] [place] [address], USAIMMATURE GRANS3.5 %High0.0-1.0The Wayne HospitalComment on above:Order Comment: No: Do not add to previous draw Performed By: #### 06068, 13990, 66672, 02126, 48863 #### [facility] [address] [facility] [address], USALymphocytes (Bld) [#/Vol]1.3 10*3/uLNormal1.2-4.0The [facility] HospitalComment on above:Order Comment: No: Do not add to previous drawPerformed By: #### 20066, 19316, 07648, 57089, 83337 #### [facility] [address] [facility] [address], USALymphocytes/100 WBC (Bld)9.2 %Low20.0-45.0The [facility] HospitalComment on above:Order Comment: No: Do not add to previous drawPerformed By: #### 60661, 80498, 86302, 52390, 21287 #### [facility] [address] [facility] [address], USAMCH (RBC) [Entitic mass]28.9 tiSvvtlu71.0-33.0The [facility] HospitalComment on above:Order Comment: No: Do not add to previous drawPerformed By: #### 35153, 68550, 03176, 01391, 11597 #### [facility] [address] [place] [address], [facility] HOSPITALMCHC (RBC) [Mass/Vol]32.8 g/zVZnlqtv18.0-35.0The [facility] HospitalComment on above:Order Comment: No: Do not add to previous drawPerformed By: #### 70639, 39236, 76571, 34694, 03355 #### [facility] [address] [place] [address], [facility] HOSPITALMCV (RBC) [Entitic vol]88.2 pECzoxgk34.0-98.0The [facility] HospitalComment on above:Order Comment: No: Do not add to previous drawPerformed By: #### 97434, 60579, 42749, 42925, 24577 #### [facility] [address] [place] [address], USAMonocytes (Bld) [#/Vol]1.7 10*3/uLHigh0.1-1.0The [facility] HospitalComment on above:Order Comment: No: Do not add to previous drawPerformed By: #### 59494, 02253, 53011, 68810, 62376 #### [facility] [address] [place] [address], IXDOXKCH66.7 %Normal5.0-12.0The [facility] HospitalComment on above:Order Comment: No: Do not add to previous drawPerformed By: #### 51707, 79143, 34125, 87841, 81666 #### [facility] [address] [place] [address], USANeutrophils/100 WBC (Bld)72.2 %High40.0-72.0The [facility] HospitalComment on above:Order Comment: No: Do not add to previous drawPerformed By: #### 31356, 52976, 85940, 83288, 00725 #### [facility] [address] [place] [address], USANucleated RBC/100 WBC (Bld) [Ratio]0 %Normal0-0The [facility] HospitalComment on above:Order Comment: No: Do not add to previous drawPerformed By: #### 50987, 47070, 27235, 95124, 99210 #### [facility] [address] [place] [address], USAPLAT UQP745 10*3/aUZqyfyl216-431Pil Wayne HospitalComment on above:Order Comment: No: Do not add to previous draw Performed By: #### 24971, 26345, 06043, 09142, 39931 #### [facility] [address] [place] [address], USARBC (Bld) [#/Vol]3.91 10*6/uLLow4.20-5.70The [facility] HospitalComment on above:Order Comment: No: Do not add to previous drawPerformed By: #### 32845, 11512, 92630, 97465, 89189 #### [facility] [address] [place] [address], USAWBC (Bld) [#/Vol]14.17 10*3/uLHigh4.00-10.60The [facility] HospitalComment on above:Order Comment: No: Do not add to previous drawPerformed By: #### 81905, 04431, 68974, 19633, 79676 #### [facility] [address] [place] [address], USAPOC GLUCOSE LABon 62-59-2404Xxovuaw [Mass/Vol]129 mg/dLHigh 70-100The [facility] HospitalComment on above:Performed By: #### 54752, 38949, 66523, 32391, 08637 #### [facility] [address] [facility] [address], USAGlucose [Mass/Vol]129 mg/aCIhbh16-850Gkl [facility] HospitalComment on above:Performed By: #### 77369, 78962, 61811, 44198, 29121 #### [facility] [address] [place] [address], USAGlucose [Mass/Vol]130 mg/ySGmws75-179Jls [facility] HospitalComment on above:Performed By: #### 69144, 26971, 76063, 57898, 04866 #### [facility] [address] [place] [address], USAGlucose [Mass/Vol]91 mg/iEWsrmhv29-446Ttz [facility] HospitalComment on above:Performed By: #### 38175, 60777, 09912, 31760, 30216 #### [facility] [address] [place] [address], USAPORTABLE CHEST 1 VIEWon [id number] CHEST 1 VIEW [facility] Department [facility] Rad[facility] [address] [place] [id number] Patient Name: TRACIE CRAIN : 1965 Sex: M Age: Race: NA Pt. Location: [id number] Patient Status: I Ordered Date: 03/26/2019 7:00:00 AM Completed Date: 03/26/2019 06:36 AM Requesting Provider: TIMBO BLACK Attending Provider: JIAN SYED Report Copy To: Signs & Symptoms: Post Chest Tube Removal History: Patient history not available Comments: R/O Atelectasis Exam: PORTABLE CHEST 1 VIEW PORTABLE CHEST 1 VIEW 03/26/2019 6:36 AM [...] findings. Electronically signed by:Divya Collins. Transcribed by: [email or web address], User Resident: KAREEM LIAO Electronically Signed by: DIVYA COLLINS @ 03/26/2019 10:03 AM I personally read this/these film(s) with this [facility] CenterComment on above:Order Comment: No: Do not add to previous drawBASIC METABOLIC PANELon 51-87-0621Txcppoj [Mass/Vol]9.1 mg/dLNormal8.6-10.3 The [facility] HospitalComment on above:Order Comment: << On admission If not done in ED>> No: Do not add to previous drawPerformed By: #### 63779, 13391, 79816, 76015, 29216 #### [facility] [address] [place] [address], USAChloride [Moles/Vol]98 mmol/EBaxzxe95-606Giq [facility] HospitalComment on above:Order Comment: << On admission If not done in ED>> No: Do not add to previous drawPerformed By: #### 85250, 74097, 59860, 29425, 10435 #### [facility] [address] [place] [address], USACO2 [Moles/Vol]29 mmol/ZOevsuu99-27Vgb [facility] HospitalComment on above:Order Comment: << On admission If not done in ED>> No: Do not add to previous drawPerformed By: #### 91565, 30511, 03178, 02169, 89358 #### [facility] [address] [place] [address], USACreatinine [Mass/Vol]1.01 mg/dLNormal0.70-1.30The [facility] HospitalComment on above:Order Comment: << On admission If not done in ED>> No: Do not add to previous drawPerformed By: #### 40820, 68294, 67509, 62370, 24799 #### [facility] [address] [place] [address], USAGFR/1.73 sq M predicted among blacks MDRD (S/P/Bld) [Vol rate/Area]mL/min/{1.73_m2}Normal>60The [facility] Comment on above:Order Comment: << On admission If not done in ED>> No: Do not add to previous drawPerformed By: #### 12837, 16433, 32813, 33213, 86550 #### [facility] [address] [place] [address], USAGFR/1.73 sq M predicted among non-blacks MDRD (S/P/Bld) [Vol rate/Area]mL/min/{1.73_m2}Normal>60The [facility] Comment on above:Order Comment: << On admission If not done in ED>> No: Do not add to previous drawPerformed By: #### 91666, 93511, 43804, 01860, 28174 #### [facility] [address] [place] [address], USAGlucose [Mass/Vol]123 mg/wDEihl97-251Hbo [facility] HospitalComment on above:Order Comment: << On admission If not done in ED>> No: Do not add to previous drawPerformed By: #### 29094, 96350, 38992, 43198, 56752 #### [facility] [address] [place] [address], USAPotassium [Moles/Vol]3.9 mmol/LNormal3.5-5.1The [facility] HospitalComment on above:Order Comment: << On admission If not done in ED>> No: Do not add to previous drawPerformed By: #### 00492, 13308, 47991, 56988, 64881 #### [facility] [address] [place] [address], USASodium [Moles/Vol]134 mmol/ZUwt821-428Mpa [facility] HospitalComment on above:Order Comment: << On admission If not done in ED>> No: Do not add to previous drawPerformed By: #### 49992, 63705, 81848, 56056, 19206 #### [facility] [address] [place] [address], USAUrea nitrogen [Mass/Vol]29 mg/dLHigh7-25The [facility] HospitalComment on above:Order Comment: << On admission If not done in ED>> No: Do not add to previous drawPerformed By: #### 60574, 43816, 28074, 75033, 38219 #### [facility] [address] [facility] [address], USACBC W/DIFFon 19-73-3951YXC BASOPHILS0.1 10*3/uLNormal 0.0-0.2The [facility] Medical CenterComment on above:Order Comment: << On admission If not done in ED>> No: Do not add to previous drawPerformed By: #### 27921, 16911, 05604, 55263, 80721 #### [facility] [address] [place] [address], USAABS ZSTVXRZSMCM78.2 10*3/uLHigh1.6-7.6The [facility] HospitalComment on above:Order Comment: << On admission If not done in ED>> No: Do not add to previous drawPerformed By: #### 20697, 09650, 57614, 37900, 39145 #### [facility] [address] [place] [address], USABasophils/100 WBC (Bld)0.9 %Normal0.0-1.0The [facility] HospitalComment on above:Order Comment: << On admission If not done in ED>> No: Do not add to previous drawPerformed By: #### 98248, 97172, 01197, 80248, 42377 #### [facility] [address] [place] [address], USAEosinophils (Bld) [#/Vol]0.1 10*3/uLNormal0.0-0.5The [facility] HospitalComment on above:Order Comment: << On admission If not done in ED>> No: Do not add to previous drawPerformed By: #### 47272, 62133, 95309, 92667, 67983 #### [facility] [address] [place] [address], USAEosinophils/100 WBC (Bld)0.9 %Normal0.0-6.0The [facility] HospitalComment on above:Order Comment: << On admission If not done in ED>> No: Do not add to previous drawPerformed By: #### 08976, 69185, 97526, 66214, 39350 #### [facility] [address] [place] [address], USAErythrocyte distribution width (RBC) [Ratio]13.4 %Normal 11.5-15.0The [facility] HospitalComment on above:Order Comment: << On admission If not done in ED>> No: Do not add to previous drawPerformed By: #### 35288, 29873, 29264, 27902, 98521 #### [facility] [address] [place] [address], USAGIANT PLATELETSPresentNormalThe Wayne HospitalComment on above:Order Comment: << On admission If not done in ED>> No: Do not add to previous drawPerformed By: #### 55082, 56714, 92800, 86708, 35418 #### [facility] [address] [place] [address], USAHematocrit (Bld) [Volume fraction]35.4 %Low39.0-50.0The [facility] HospitalComment on above:Order Comment: << On admission If not done in ED>> No: Do not add to previous drawPerformed By: #### 43805, 67730, 10622, 51302, 09417 #### [facility] [address] [place] [address], USAHemoglobin (Bld) [Mass/Vol]11.1 g/dLLow13.0-17.0The [facility] HospitalComment on above:Order Comment: << On admission If not done in ED>> No: Do not add to previous drawPerformed By: #### 62820, 59203, 67010, 96554, 74486 #### [facility] [address] [place] [address], USALymphocytes (Bld) [#/Vol]0.8 10*3/uLLow1.2-4.0The [facility] HospitalComment on above:Order Comment: << On admission If not done in ED>> No: Do not add to previous drawPerformed By: #### 09407, 17562, 89543, 33654, 37707 #### [facility] [address] [place] [address], [facility] HOSPITALLymphocytes/100 WBC (Bld)6.3 %Low20.0-45.0The [facility] HospitalComment on above:Order Comment: << On admission If not done in ED>> No: Do not add to previous drawPerformed By: #### 09351, 58891, 59944, 33802, 90196 #### [facility] [address] [place] [address], [facility] (RBC) [Entitic mass]28.8 tqXlifyb88.0-33.0The [facility] HospitalComment on above:Order Comment: << On admission If not done in ED>> No: Do not add to previous drawPerformed By: #### 31890, 91364, 53549, 09637, 66581 #### [facility] [address] [place] [address], [facility] ALTUSHC (RBC) [Mass/Vol]31.4 g/dLLow32.0-35.0The [facility] HospitalComment on above:Order Comment: << On admission If not done in ED>> No: Do not add to previous drawPerformed By: #### 18123, 77792, 09380, 98974, 97609 #### [facility] [address] [place] [address], [facility] ALTUSV (RBC) [Entitic vol]91.9 yPSqxunk42.0-98.0The [facility] HospitalComment on above:Order Comment: << On admission If not done in ED>> No: Do not add to previous drawPerformed By: #### 19291, 64209, 10626, 56474, 68890 #### [facility] [address] [place] [address], [facility] HOSPITALMonocytes (Bld) [#/Vol]0.7 10*3/uLNormal0.1-1.0The [facility] HospitalComment on above:Order Comment: << On admission If not done in ED>> No: Do not add to previous drawPerformed By: #### 67482, 84125, 92379, 76797, 83613 #### [facility] [address] [place] [address], USAMONOS5.4 %Normal5.0-12.0The [facility] HospitalComment on above:Order Comment: << On admission If not done in ED>> No: Do not add to previous drawPerformed By: #### 11712, 52402, 30847, 80551, 52298 #### [facility] [address] [place] [address], USAMYELOS0.9 %High.0-.0The [facility] Comment on above:Order Comment: << On admission If not done in ED>> No: Do not add to previous drawPerformed By: #### 91162, 41076, 69333, 73571, 06717 #### [facility] [address] [place] [address], USANeutrophils/100 WBC (Bld)85.6 %High40.0-72.0The [facility] HospitalComment on above:Order Comment: << On admission If not done in ED>> No: Do not add to previous drawPerformed By: #### 48213, 92611, 65239, 13977, 89564 #### [facility] [address] [place] [address], USANucleated RBC/100 WBC (Bld) [Ratio]0 %Normal0-0The [facility] HospitalComment on above:Order Comment: << On admission If not done in ED>> No: Do not add to previous drawPerformed By: #### 15520, 92534, 61379, 92889, 43622 #### [facility] [address] [place] [address], USAPLAT SWO860 10*3/hFDrdkuz560-174Fbt [facility] HospitalComment on above:Order Comment: << On admission If not done in ED>> No: Do not add to previous drawPerformed By: #### 58563, 28171, 49566, 08615, 07271 #### [facility] [address] [facility] [place] [address], USARBC (Bld) [#/Vol]3.85 10*6/uLLow4.20-5.70The [facility] HospitalComment on above:Order Comment: << On admission If not done in ED>> No: Do not add to previous drawPerformed By: #### 50238, 48457, 08676, 39222, 06062 #### [facility] [address] [place] [address], [facility] HOSPITALWBC (Bld) [#/Vol]13.09 10*3/uLHigh4.00-10.60The [facility] HospitalComment on above:Order Comment: << On admission If not done in ED>> No: Do not add to previous drawPerformed By: #### 07665, 63705, 45772, 51964, 41957 #### [facility] [address] [place] [address], USAMAGNESIUM BLOODon 18-01-6300Isqjglnwq [Mass/Vol]2.3 mg/dL Normal1.9-2.7The [facility] HospitalComment on above:Order Comment: << On admission If not done in ED>> No: Do not add to previous drawPerformed By: #### 33641, 45342, 13888, 69917, 62644 #### [facility] [address] [place] [address], USAPHOSPHORUS BLOODon 30-03-7210Vjnnlhqsq [Mass/Vol]2.6 mg/dL Normal2.5-5.0The [facility] HospitalComment on above:Order Comment: << On admission If not done in ED>> No: Do not add to previous drawPerformed By: #### 34072, 37014, 64220, 53568, 58701 #### [facility] [address] [place] [address], USAPOC GLUCOSE LABon 71-07-3769Uvuawnf [Mass/Vol]103 mg/dLHigh 70-100The [facility] HospitalComment on above:Performed By: #### 23328, 50865, 36198, 17434, 70217 #### [facility] [address] [place] [address], USAGlucose [Mass/Vol]113 mg/jWUryh58-768Flm [facility] HospitalComment on above:Performed By: #### 52513, 74199, 13157, 04040, 08990 #### [facility] [address] [place] [address], USAGlucose [Mass/Vol]120 mg/pWLknt65-779Thu [facility] HospitalComment on above:Performed By: #### 90294, 53772, 75717, 11073, 67929 #### [facility] [address] [place] [address], USAGlucose [Mass/Vol]110 mg/cMToee45-509Zdx [facility] HospitalComment on above:Performed By: #### 47041, 38789, 27930, 57382, 11042 #### [facility] [address] [facility] [place] [address], USAPORTABLE CHEST 1 VIEWon [id number] CHEST 1 VIEW [facility] Department of Radiology [address] [place] [id number] Patient Name: TRACIE CRAIN : 1965 Sex: M Age: Race: NA Pt. Location: [id number] Patient Status: I Ordered Date: 03/25/2019 7:00:00 AM Completed Date: 03/25/2019 07:15 AM Requesting Provider: TIMBO BLACK Attending Provider: TIMBO BLACK Report Copy To: Signs & Symptoms: Post Chest Tube Clamped History: Patient history not available Comments: Other Exam: PORTABLE CHEST 1 VIEW PORTABLE CHEST 1 VIEW 03/25/2019 7:15 AM [...] findings. Electronically signed by:Divya Collins. Transcribed by: [email or web address], User Resident: KAREEM LIAO Electronically Signed by: DIVYA COLLINS @ 03/25/2019 11:10 AM I personally read this/these film(s) with this [facility] CenterComment on above:Order Comment: No: Do not add to previous drawBASIC METABOLIC PANELon 78-05-1609Hxgbyyf [Mass/Vol]9.0 mg/dLNormal8.6-10.3 The [facility] HospitalComment on above:Order Comment: << On admission If not done in ED>> No: Do not add to previous drawPerformed By: #### 67758, 80810, 73023, 95442, 27269 #### [facility] [address] [place] [address], USAChloride [Moles/Vol]96 mmol/PEtv58-951Uua [facility] HospitalComment on above:Order Comment: << On admission If not done in ED>> No: Do not add to previous drawPerformed By: #### 03969, 55977, 25861, 36245, 65554 #### [facility] [address] [place] [address], USACO2 [Moles/Vol]30 mmol/FJhwxuu04-79Thd [facility] HospitalComment on above:Order Comment: << On admission If not done in ED>> No: Do not add to previous drawPerformed By: #### 49638, 83818, 88081, 67239, 69386 #### [facility] [address] [place] [address], USACreatinine [Mass/Vol]0.89 mg/dLNormal0.70-1.30The [facility] HospitalComment on above:Order Comment: << On admission If not done in ED>> No: Do not add to previous drawPerformed By: #### 46941, 08408, 65067, 15831, 99990 #### [facility] [address] [place] [address], USAGFR/1.73 sq M predicted among blacks MDRD (S/P/Bld) [Vol rate/Area]mL/min/{1.73_m2}Normal>60The [facility] Comment on above:Order Comment: << On admission If not done in ED>> No: Do not add to previous drawPerformed By: #### 14530, 53297, 47735, 41857, 99986 #### [facility] [address] [place] [address], USAGFR/1.73 sq M predicted among non-blacks MDRD (S/P/Bld) [Vol rate/Area]mL/min/{1.73_m2}Normal>60The [facility] Comment on above:Order Comment: << On admission If not done in ED>> No: Do not add to previous drawPerformed By: #### 01695, 42987, 05036, 39942, 05885 #### [facility] [address] [place] [address], USAGlucose [Mass/Vol]98 mg/wRLcsvnc82-282Xyy [facility] HospitalComment on above:Order Comment: << On admission If not done in ED>> No: Do not add to previous drawPerformed By: #### 12609, 60198, 58891, 89501, 09256 #### [facility] [address] [place] [address], USAPotassium [Moles/Vol]3.2 mmol/LLow3.5-5.1The [facility] HospitalComment on above:Order Comment: << On admission If not done in ED>> No: Do not add to previous drawPerformed By: #### 23743, 44396, 52611, 19683, 27911 #### [facility] [address] [place] [address], USASodium [Moles/Vol]135 mmol/YMfg468-179Kmi [facility] HospitalComment on above:Order Comment: << On admission If not done in ED>> No: Do not add to previous drawPerformed By: #### 18700, 23223, 28694, 47812, 95600 #### [facility] [address] [place] [address], USAUrea nitrogen [Mass/Vol]29 mg/dLHigh7-25The [facility] HospitalComment on above:Order Comment: << On admission If not done in ED>> No: Do not add to previous drawPerformed By: #### 74938, 48189, 80462, 20267, 85681 #### [facility] [address] [place] [address], [facility]OSPITALCB W/DIFFon 34-96-9754QEZ BASOPHILS0.1 10*3/uLNormal 0.0-0.2The [facility] HospitalComment on above:Order Comment: << On admission If not done in ED>> No: Do not add to previous drawPerformed By: #### 40241, 77456, 89797, 10914, 17382 #### [facility] [address] [place] [address], USAABS IMM GRANS0.1 10*3/uLNormal0.0-0.2The [facility] HospitalComment on above:Order Comment: << On admission If not done in ED>> No: Do not add to previous drawPerformed By: #### [id number], [id number], 62889, 44810, 81818 #### [facility] [address] [place] [address], [facility]ITALAB[facility] NEUTROPHILS6.9 10*3/uLNormal1.6-7.6The Wayne HospitalComment on above:Order Comment: << On admission If not done in ED>> No: Do not add to previous drawPerformed By: #### [id number], 39997, 58331, 72960, 57561 #### [facility] [address] [place] [address], USABasophils/100 WBC (Bld)0.8 %Normal0.0-1.0The [facility] HospitalComment on above:Order Comment: << On admission If not done in ED>> No: Do not add to previous drawPerformed By: #### [id number], 94341, 29393, 48369, 98059 #### [facility] [address] [place] [address], USAEosinophils (Bld) [#/Vol]0.3 10*3/uLNormal0.0-0.5The [facility] HospitalComment on above:Order Comment: << On admission If not done in ED>> No: Do not add to previous drawPerformed By: #### [id number], 50433, 06987, 39058, 57405 #### [facility] [address] [place] [address], USAEosinophils/100 WBC (Bld)2.8 %Normal0.0-6.0The [facility] HospitalComment on above:Order Comment: << On admission If not done in ED>> No: Do not add to previous drawPerformed By: #### 26832, 79728, 22591, 71839, 63177 #### [facility] [facility] [address] [place] [address], USAErythrocyte distribution width (RBC) [Ratio]13.5 %Normal 11.5-15.0The Wayne HospitalComment on above:Order Comment: << On admission If not done in ED>> No: Do not add to previous drawPerformed By: #### 21942, 95475, 12325, 60365, 06586 #### [facility] [address] [place] [address], USAHematocrit (Bld) [Volume fraction]33.0 %Low39.0-50.0The Wayne HospitalComment on above:Order Comment: << On admission If not done in ED>> No: Do not add to previous drawPerformed By: #### 64205, 18631, 01674, 88206, 19758 #### [facility] [address] [place] [address], USAHemoglobin (Bld) [Mass/Vol]10.4 g/dLLow13.0-17.0The Wayne HospitalComment on above:Order Comment: << On admission If not done in ED>> No: Do not add to previous drawPerformed By: #### 12240, 22017, 19231, 09263, 02419 #### [facility] [address] [place] [address], USAIMMATURE GRANS1.2 %High0.0-1.0The Wayne HospitalComment on above:Order Comment: << On admission If not done in ED>> No: Do not add to previous drawPerformed By: #### 94485, 46032, 02645, 26920, 81501 #### [facility] [address] [place] [address], [facility] HOSPITALLymphocytes (Bld) [#/Vol]1.5 10*3/uLNormal1.2-4.0The Wayne HospitalComment on above:Order Comment: << On admission If not done in ED>> No: Do not add to previous drawPerformed By: #### 13878, 49759, 95060, 73470, 61707 #### [facility] [address] [place] [address], [facility] HOSPITALLymphocytes/100 WBC (Bld)14.4 %Low20.0-45.0The [facility] HospitalComment on above:Order Comment: << On admission If not done in ED>> No: Do not add to previous drawPerformed By: #### 34801, 55173, 38974, 01602, 68105 #### [facility] [address] [place] [address], [facility] (RBC) [Entitic mass]28.8 vdLzbakp73.0-33.0The Wayne HospitalComment on above:Order Comment: << On admission If not done in ED>> No: Do not add to previous drawPerformed By: #### 51913, 33770, 16749, 51031, 65232 #### [facility] [address] [place] [address], [facility] ALTUSHC (RBC) [Mass/Vol]31.5 g/dLLow32.0-35.0The Wayne HospitalComment on above:Order Comment: << On admission If not done in ED>> No: Do not add to previous drawPerformed By: #### 62381, 25745, 54815, 59866, 32556 #### [facility] [address] [place] [address], USAMCV (RBC) [Entitic vol]91.4 mYXexavq91.0-98.0The [facility] HospitalComment on above:Order Comment: << On admission If not done in ED>> No: Do not add to previous drawPerformed By: #### 24492, 28996, 44196, 89201, 19647 #### [facility] [address] [place] [address], USAMonocytes (Bld) [#/Vol]1.3 10*3/uLHigh0.1-1.0The Wayne HospitalComment on above:Order Comment: << On admission If not done in ED>> No: Do not add to previous drawPerformed By: #### 83315, 35082, 22322, 10298, 01907 #### [facility] [address] [place] [address], XAZFERNC50.1 %High5.0-12.0The [facility] HospitalComment on above:Order Comment: << On admission If not done in ED>> No: Do not add to previous drawPerformed By: #### 54644, 83736, 08147, 32411, 07356 #### [facility] [address] [place] [address], USANeutrophils/100 WBC (Bld)67.7 %Qnenel10.0-72.0The [facility] HospitalComment on above:Order Comment: << On admission If not done in ED>> No: Do not add to previous drawPerformed By: #### 26367, 57017, 68825, 19674, 53647 #### [facility] [address] [place] [address], USANucleated RBC/100 WBC (Bld) [Ratio]0 %Normal0-0The Wayne HospitalComment on above:Order Comment: << On admission If not done in ED>> No: Do not add to previous drawPerformed By: #### 76051, 37491, 43082, 70298, 12399 #### [facility] [address] [place] [address], USAPLAT AHN873 10*3/xTZqdxxw264-664Ykf Wayne HospitalComment on above:Order Comment: << On admission If not done in ED>> No: Do not add to previous drawPerformed By: #### 22999, 33292, 88824, 03348, 52427 #### [facility] [address] [place] [address], USARBC (Bld) [#/Vol]3.61 10*6/uLLow4.20-5.70The [facility] HospitalComment on above:Order Comment: << On admission If not done in ED>> No: Do not add to previous drawPerformed By: #### 52341, 43803, 78164, 87172, 23491 #### [facility] [address] [place] [address], USAWBC (Bld) [#/Vol]10.21 10*3/uLNormal4.00-10.60The [facility] HospitalComment on above:Order Comment: << On admission If not done in ED>> No: Do not add to previous drawPerformed By: #### 19871, 16051, 60583, 58718, 43889 #### [facility] [address] [place] [address], USAMAGNESIUM BLOODon 10-81-0027Pgomnxyyw [Mass/Vol]2.4 mg/dL Normal1.9-2.7The Wayne HospitalComment on above:Order Comment: << On admission If not done in ED>> No: Do not add to previous drawPerformed By: #### 90175, 42313, 28403, 51489, 01019 #### [facility] [address] [place] [address], USAPHOSPHORUS BLOODon 98-97-0717Pbloxsalu [Mass/Vol]2.9 mg/dL Normal2.5-5.0The Wayne HospitalComment on above:Order Comment: << On admission If not done in ED>> No: Do not add to previous drawPerformed By: #### 25781, 11701, 29256, 81907, 83117 #### [facility] [address] [place] [address], USAPOC GLUCOSE LABon 74-38-4266Kaxljgl [Mass/Vol]107 mg/dLHigh 70-100The Wayne HospitalComment on above:Performed By: #### 25526, 43231, 04966, 32110, 87146 #### [facility] [address] [place] [address], USAPORTABLE CHEST 1 VIEWon [id number] CHEST 1 VIEW [facility] [address] [place] [id number] Patient Name: TRACIE CRAIN : 1965 Sex: M Age: Race: NA Pt. Location: [id number] Patient Status: I Ordered Date: 03/24/2019 4:00:00 AM Completed Date: 03/24/2019 06:29 AM Requesting Provider: TIMBO BLACK Attending Provider: TIMBO BLACK Report Copy To: Signs & Symptoms: Post OP History: Patient history not available Comments: R/O Atelectasis Exam: PORTABLE CHEST 1 VIEW PORTABLE CHEST 1 VIEW 03/24/2019 6:29 AM [...] recommended. Electronically signed by:Scottie Fall. Transcribed by: [email or web address], User Resident: Electronically Signed by: SCOTTIE FALL @ 03/24/2019 10:43 AMNormalThe Wayne HospitalComment on above:Order Comment: << On admission If not done in ED>> No: Do not add to previous drawPOC GLUCOSE LABon 64-53-4470Wopphdv [Mass/Vol]150 mg/bFBdjw22-855Ttt Wayne HospitalComment on above: Performed By: #### 26873, 26120, 86497, 90187, 74484 #### [facility] [address] [place] [address], USAGlucose [Mass/Vol]110 mg/dHJlvw03-364Lga Wayne HospitalComment on above:Performed By: #### 40972, 22265, 03993, 81785, 31465 #### [facility] [address] [place] [address], USAGlucose [Mass/Vol]112 mg/cMZgrt30-584Abd Wayne HospitalComment on above:Performed By: #### 89463, 35842, 20426, 02732, 51478 #### [facility] [address] [place] [address], USAGlucose [Mass/Vol]93 mg/gEGfygdj98-729Wgi Wayne HospitalComment on above:Performed By: #### 80259, 39746, 07482, 20506, 93442 #### [facility] [address] [place] [address], USAARTERIAL BLOOD GAS WITH ICAon 85-36-9754CKDH EXCESS4 mmol/L High-2-3The Wayne HospitalComment on above:Performed By: #### 21534, 70075, 84501, 41827, 65366 #### [facility] [address] [place] [address], USADELIVERY SYSTEMSNASAL CANNULANormSelect Medical Specialty Hospital - Trumbulle Wayne HospitalComment on above:Performed By: #### 83493, 90799, 09800, 57086, 53617 #### [facility] [address] [place] [address], USAHCO3 (Bld) [Moles/Vol]27 mmol/YHpbeox07-63Prt Wayne HospitalComment on above:Performed By: #### 44197, 63398, 42374, 40668, 33063 #### [facility] [address] [place] [address], USAIONIZED CALCIUM1.14 mmol/LNormal1.13-1.32The Wayne HospitalComment on above:Performed By: #### 71083, 10370, 79266, 49029, 04695 #### [facility] [address] [place] [address], USALPM6.0 LPMNormalThe [facility] Hospital Comment on above:Performed By: #### 88328, 79393, 92988, 82164, 65101 #### [facility] [address] [place] [address], USAOxygen (Bld) [Partial pressure]70 mm[Hg]Pap37-997Xoa Wayne HospitalComment on above:Performed By: #### 52353, 35455, 77737, 11825, 03056 #### [facility] [address] [place] [address], USAOxygen saturation in Blood93.0 %Low94.0-97.0The Wayne HospitalComment on above:Performed By: #### 99169, 36776, 15276, 87976, 41793 #### [facility] [address] [place] [address], OKJPCQ356 qwNwZzeeld57-94Onj Wayne HospitalComment on above:Performed By: #### 80149, 75044, 70298, 85420, 68827 #### [facility] [address] [place] [address], USApH (Bld)7.50 [pH]High7.35-7.45The Wayne HospitalComment on above:Result Comment: PLEASE NOTE: Effective 12/02/18, reference ranges for Respiratory GEM analyzers running arterial blood have been updated to reflect the vault manager's published reference ranges.Performed By: #### 71116, 71793, 66394, 69181, 67890 #### [facility] [address] [place] [address], USABASIC METABOLIC PANELon 03-71-3323Gdfupxg [Mass/Vol]8.9 mg/dLNormal8.6-10.3The Wayne HospitalComment on above:Order Comment: << On admission If not done in ED>> No: Do not add to previous drawPerformed By: #### 54188, 47886, 81988, 76911, 75689 #### [facility] [address] [place] [address], USAChloride [Moles/Vol]101 mmol/MOixygc26-785Iyw [facility] HospitalComment on above:Order Comment: << On admission If not done in ED>> No: Do not add to previous drawPerformed By: #### 49726, 05814, 63620, 78945, 57364 #### [facility] [address] [place] [address], USACO2 [Moles/Vol]28 mmol/GWvhkjh78-34Lxu Wayne HospitalComment on above:Order Comment: << On admission If not done in ED>> No: Do not add to previous drawPerformed By: #### 37303, 74668, 02059, 47144, 56563 #### [facility] [address] [place] [address], USACreatinine [Mass/Vol]1.29 mg/dLNormal0.70-1.30The [facility] HospitalComment on above:Order Comment: << On admission If not done in ED>> No: Do not add to previous drawPerformed By: #### 30711, 69355, 78930, 62713, 89948 #### [facility] [address] [place] [address], USAGFR/1.73 sq M predicted among blacks MDRD (S/P/Bld) [Vol rate/Area]mL/min/{1.73_m2}Normal>60The [facility] Comment on above:Order Comment: << On admission If not done in ED>> No: Do not add to previous drawPerformed By: #### 20750, 34739, 33113, 62047, 42469 #### [facility] [address] [place] [address], USAGFR/1.73 sq M predicted among non-blacks MDRD (S/P/Bld) [Vol rate/Area]58 ml/min/1.73sq mAbnormal>60The [facility] HospitalComment on above:Order Comment: << On admission If not done in ED>> No: Do not add to previous drawPerformed By: #### 85152, 92656, 52604, 76508, 02302 #### [facility] [address] [place] [address], USAGlucose [Mass/Vol]111 mg/cSTudb42-129Tpv [facility] HospitalComment on above:Order Comment: << On admission If not done in ED>> No: Do not add to previous drawPerformed By: #### 92246, 98083, 80558, 23051, 63957 #### [facility] [address] [place] [address], USASodium [Moles/Vol]139 mmol/JQkpgdl251-777Lqf [facility] HospitalComment on above:Order Comment: << On admission If not done in ED>> No: Do not add to previous drawPerformed By: #### 40210, 08392, 79881, 63926, 15138 #### [facility] [address] [place] [address], USAUrea nitrogen [Mass/Vol]23 mg/dLNormal7-25The [facility] HospitalComment on above:Order Comment: << On admission If not done in ED>> No: Do not add to previous drawPerformed By: #### 35219, 13873, 53650, 31432, 43792 #### [facility] [address] [place] [address], USACBC COMPLETE BLOOD COUNTon 03-03-1322Vfcdrdsgzlc distribution width (RBC) [Ratio]13.4 %Tgcfzz28.5-15.0The [facility] HospitalComment on above:Order Comment: << On admission If not done in ED>> No: Do not add to previous drawPerformed By: #### 24968, 25757, 70720, 10351, 24025 #### [facility] [address] [place] [address], USAHematocrit (Bld) [Volume fraction]31.2 %Low39.0-50.0The [facility] HospitalComment on above:Order Comment: << On admission If not done in ED>> No: Do not add to previous drawPerformed By: #### 28676, 33189, 69867, 85305, 28417 #### [facility] [address] [place] [address], [facility] HOSPITALHemoglobin (Bld) [Mass/Vol]10.3 g/dLLow13.0-17.0The [facility] HospitalComment on above:Order Comment: << On admission If not done in ED>> No: Do not add to previous drawPerformed By: #### 69653, 38570, 70370, 76456, 40142 #### [facility] [address] [place] [address], [facility] (RBC) [Entitic mass]28.9 lyYgyytq58.0-33.0The [facility] HospitalComment on above:Order Comment: << On admission If not done in ED>> No: Do not add to previous drawPerformed By: #### 58703, 20861, 35267, 61413, 21347 #### [facility] [address] [place] [address], [facility] HOSPITALMCHC (RBC) [Mass/Vol]33.0 g/hKKzjals86.0-35.0The [facility] HospitalComment on above:Order Comment: << On admission If not done in ED>> No: Do not add to previous drawPerformed By: #### 05213, 21065, 47898, 78976, 00232 #### [facility] [address] [place] [address], [facility] ALTUSV (RBC) [Entitic vol]87.4 cNZrermg16.0-98.0The [facility] HospitalComment on above:Order Comment: << On admission If not done in ED>> No: Do not add to previous drawPerformed By: #### 56094, 14194, 95913, 37044, 30386 #### [facility] [address] [place] [address], USANucleated RBC/100 WBC (Bld) [Ratio]0 %Normal0-0The [facility] HospitalComment on above:Order Comment: << On admission If not done in ED>> No: Do not add to previous drawPerformed By: #### 77990, 58076, 86964, 14345, 08170 #### [facility] [address] [place] [address], USAPLAT CNT88 10*3/zURkf045-243Vlf [facility] HospitalComment on above:Order Comment: << On admission If not done in ED>> No: Do not add to previous drawPerformed By: #### 29973, 99354, 59787, 51661, 99472 #### [facility] [address] [place] [address], USARBC (Bld) [#/Vol]3.57 10*6/uLLow4.20-5.70The [facility] HospitalComment on above:Order Comment: << On admission If not done in ED>> No: Do not add to previous drawPerformed By: #### 91687, 76380, 35237, 15843, 08522 #### [facility] [address] [place] [address], USAWBC (Bld) [#/Vol]13.95 10*3/uLHigh4.00-10.60The [facility] HospitalComment on above:Order Comment: << On admission If not done in ED>> No: Do not add to previous drawPerformed By: #### 80369, 69940, 13688, 84110, 13699 #### [facility] [address] [place] [address], USACOOXIMETRYon 48-00-7024VXTT3 %NormalThe Wayne HospitalComment on above:Performed By: #### 74484, 71335, 29489, 20372, 74333 #### [facility] [address] [place] [address], USAMETHB1 %NormalThe [facility] Comment on above:Performed By: #### 06738, 06637, 17939, 24945, 62250 #### [facility] [address] [place] [address], USAOxygen saturation in Blood56.5 %Low65.0-75.0The [facility] HospitalComment on above:Performed By: #### 36248, 41160, 28334, 95926, 37342 #### [facility] [address] [place] [address], USATHB9.9 g/dLNormalThe [facility] Comment on above:Performed By: #### 86609, 52433, 16038, 38453, 65036 #### [facility] [address] [place] [address], USAMAGNESIUM BLOODon 90-20-9084Zsnnoqzpm [Mass/Vol]2.0 mg/dL Normal1.9-2.7The [facility] HospitalComment on above:Order Comment: << On admission If not done in ED>> No: Do not add to previous drawPerformed By: #### 47901, 55594, 73577, 23968, 61139 #### [facility] [address] [place] [address], USAMagnesium [Mass/Vol]1.9 mg/dLNormal1.9-2.7The [facility] HospitalComment on above:Order Comment: << On admission If not done in ED>> No: Do not add to previous drawPerformed By: #### 45663, 51524, 69824, 17238, 93193 #### [facility] [address] [place] [address], USAPHOSPHORUS BLOODon 48-01-3934Zaionehaj [Mass/Vol]3.6 mg/dL Normal2.5-5.0The [facility] HospitalComment on above:Order Comment: << On admission If not done in ED>> No: Do not add to previous drawPerformed By: #### 02699, 81895, 67367, 24924, 10461 #### [facility] [address] [place] [address], USAPOC GLUCOSE LABon 96-40-1824Fvwphhp [Mass/Vol]111 mg/dLHigh 70-100The [facility] HospitalComment on above:Performed By: #### 67849, 24523, 26824, 91383, 23683 #### [facility] [address] [place] [address], USAGlucose [Mass/Vol]108 mg/pTXead72-412Arf [facility] HospitalComment on above:Performed By: #### 30634, 30192, 28444, 52595, 09720 #### [facility] [address] [place] [address], USAGlucose [Mass/Vol]109 mg/fNKgqy82-567Mpj [facility] HospitalComment on above:Performed By: #### 69998, 59980, 29155, 57966, 97969 #### [facility] [address] [place] [address], USAGlucose [Mass/Vol]99 mg/xKTarjaa87-862Suy [facility] HospitalComment on above:Performed By: #### 59638, 05223, 67869, 85707, 98489 #### [facility] [address] [place] [address], USAGlucose [Mass/Vol]91 mg/yCJysolt40-855Fin [facility] HospitalComment on above:Performed By: #### 73604, 47304, 12653, 11550, 43126 #### [facility] [address] [place] [address], USAPORTABLE CHEST 1 VIEWon [id number] CHEST 1 VIEW [facility] Department of Radiology [address] [place] [id number] Patient Name: TRACIE CRAIN : 1965 Sex: M Age: Race: NA Pt. Location: [id number] Patient Status: I Ordered Date: 03/22/2019 5:00:00 AM Completed Date: 03/22/2019 07:25 AM Requesting Provider: TIMBO BLACK Attending Provider: TIMBO BLACK Report Copy To: Signs & Symptoms: Post Extubation History: Patient history not available Comments: R/O Atelectasis Exam: PORTABLE CHEST 1 VIEW PORTABLE CHEST 1 VIEW 03/22/2019 7:25 AM EDT SIGNS AND SYMPTOMS: Post Extubation TECHNOLOGIST COMMENTS: short of breath, chest tube QUESTION FOR THE RADIOLOGIST: R/O Atelectasis PROTOCOL: AP(PA) view was obtained. COMPARISON: 03/21/2019. FINDINGS: Interval removal of endotracheal and enteric tubes. Right-sided Horseheads-Sher catheter is again seen with tip overlying [...] Small left pleural effusion, unchanged. 3. Right-sided Horseheads-Sher catheter with tip projecting over the pulmonary trunk, unchanged. 4. Redemonstration of 2 chest tubes on the right, unchanged. Approved by:Cynthia Finley on 03/22/2019 8:06 AM EDT. I, Yenni Osuna, have reviewed the images and report and concur with these findings. Electronically signed by:Yenni Osuna. Transcribed by: [email or web address], User Resident: CYNTHIA FINLEY Electronically Signed by: YENNI OSUNA @ 03/22/2019 01:07 PM I personally read this/these film(s) with this [facility] CenterComment on above:Order Comment: << On admission If not done in ED>> No: Do not add to previous drawPOTASSIUM BLOODon 38-84-7134Nxsglorbj [Moles/Vol] 3.1 mmol/LLow3.5-5.1The [facility] HospitalComment on above: Order Comment: << On admission If not done in ED>> No: Do not add to previous drawPerformed By: #### 24761, 63535, 93834, 84572, 39896 #### [facility] [address] [place] [address], [facility] HOSPITALPROTHROMBIN TIMEon 54-51-9070KXS Coag (PPP) [Relative time] 1.37 {INR}High0.91-1.16The [facility] HospitalComment on above: Order Comment: << On admission If not done in ED>> No: Do not add to previous drawResult Comment: ACCCP RECOMMENDED INR FOR WARFARIN THERAPY ------- CONDITION INR PROPHYLAXIS OF VENOUS THROMBOSIS 2-3 (HIGH-RISK SURGERY) TREATMENT OF VENOUS THROMBOSIS 2-3 TREATMENT OF PULMONARY EMBOLISM 2-3 PREVENTION OF SYSTEMIC EMBOLISM: 2-3 ACUTE MYOCARDIAL INFARCTION TISSUE HEART VALVES VALVULAR HEART DISEASE ATRIAL FIBRILLATION RECURRENT SYSTEMIC EMBOLISM MECHANICAL HEART VALVE 2.5-3.5 FROM: ORAL ANTICOAGULANTS. MECHANISM OF ACTION, CLINICAL EFFECTIVENESS, AND OPTIMAL THERAPEUTIC RANGE. CHEST 1995;108:231S-246S.Performed By: #### 13468, 81916, 53697, 28180, 16724 #### [facility] [address] [place] [address], USAPT Coag (PPP) [Time]16.9 sHigh12.3-14.8The [facility] HospitalComment on above:Order Comment: << On admission If not done in ED>> No: Do not add to previous drawResult Comment: ALL RESULTS MUST BE INTERPRETED WITH RESPECT TO BLOOD DRAWING ARTIFACT OR DILUTION ERROR OF ANTICOAGULANT AT THE TIME OF SAMPLING.Performed By: #### 14116, 09342, 09779, 69211, 41204 #### [facility] [address] [place] [address], USAARTERIAL BLOOD GAS W/COOXon 80-73-4052RABY EXCESS1 mmol/L Ipytud-6-7Yiz [facility] HospitalComment on above:Performed By: #### 00679, 94096, 57878, 94450, 15869 #### [facility] [address] [place] [address], USACOHB1.4 %Normal0.0-1.5The [facility] HospitalComment on above:Performed By: #### 94003, 29737, 05095, 54543, 91902 #### [facility] [address] [place] [address], MDOBZA983 %NormalThe [facility] Comment on above:Performed By: #### 66846, 85332, 20440, 84472, 83734 #### [facility] [address] [place] [address], USAHCO3 (Bld) [Moles/Vol]24 mmol/OLoijch95-46Jld [facility] HospitalComment on above:Performed By: #### 47331, 67261, 19791, 36884, 60573 #### [facility] [address] [place] [address], USAMETHB1.1 %Normal0.0-1.5The [facility] HospitalComment on above:Performed By: #### 31983, 80187, 13527, 05625, 45970 #### [facility] [address] [place] [address], USAMIN IRGUBY58.1NormalThe [facility] Comment on above:Performed By: #### 43329, 32226, 70168, 48800, 47911 #### [facility] [address] [place] [address], USAMODALITYPositiveNormalThe Wayne HospitalComment on above:Performed By: #### 61880, 82643, 59962, 86830, 38864 #### [facility] [address] [place] [address], USAOxygen (Bld) [Partial pressure]86 mm[Hg][id number] Wayne HospitalComment on above:Performed By: #### 35677, 62126, 84416, 60446, 22834 #### [facility] [address] [place] [address], USAOxygen saturation in Blood94.8 %Crtuel40.0-97.0The Wayne HospitalComment on above:Performed By: #### 34286, 48337, 55966, 31141, 20250 #### [facility] [address] [place] [address], [id number] [facility] Comment on above:Performed By: #### 50879, 02203, 82162, 30948, 74993 #### [facility] [address] [place] [address], USAPEEP8.0 POW98GxpmtxNkxFirelands Regional [facility] Center Comment on above:Performed By: #### 59885, 68454, 91856, 00350, 97173 #### [facility] [address] [place] [address], USApH (Bld)7.49 [pH]High7.35-7.45The Wayne HospitalComment on above:Result Comment: PLEASE NOTE: Effective 12/02/18, reference ranges for Respiratory GEM analyzers running arterial blood have been updated to reflect the vault manager's published reference ranges.Performed By: #### 28005, 73430, 56475, 89815, 31054 #### [facility] [address] [place] [address], USAPRESSURE [id number] [place], [place] [address]Comment on above:Performed By: #### 26942, 06574, 59449, 17650, 37788 #### [facility] [address] [place] [address], QSKVKU08.3 g/dLLow12.0-16.3The Wayne HospitalComment on above:Performed By: #### 05752, 00034, 42754, 65801, 22749 #### [facility] [address] [place] [address], USAARTERIAL BLOOD GAS WITH ICAon 34-15-3974WWDU EXCESS4 mmol/L High-2-3The Wayne HospitalComment on above:Performed By: #### 42373, 00118, 76256, 63911, 36881 #### [facility] [address] [place] [address], USADELIVERY SYSTEMSOhioHealth Doctors HospitalComment on above:Performed By: #### 93375, 64814, 85003, 13563, 19862 #### [facility] [address] [place] [address], USAHCO3 (Bld) [Moles/Vol]27 mmol/RJzzolb79-00Xyb [facility] HospitalComment on above:Performed By: #### 87328, 41297, 63084, 52795, 44196 #### [facility] [address] [place] [address], USAIONIZED CALCIUM1.17 mmol/LNormal1.13-1.32The Wayne HospitalComment on above:Performed By: #### 22818, 33301, 92059, 27068, 51172 #### [facility] [address] [place] [address], USALPM6.0 LPMNormalThe [facility] Comment on above:Performed By: #### 06875, 85940, 01226, 06966, 27413 #### [facility] [address] [place] [address], USAOxygen (Bld) [Partial pressure]67 mm[Hg]Vlx27-022Tkg Wayne HospitalComment on above:Performed By: #### 73057, 61747, 35586, 27753, 40570 #### [facility] [address] [place] [address], USAOxygen saturation in Blood92.7 %Low94.0-97.0The Wayne HospitalComment on above:Performed By: #### 97009, 34874, 24712, 33493, 82615 #### [facility] [address] [place] [address], HRNFNK220 gePzSfdsoz40-01Tpt Wayne HospitalComment on above:Performed By: #### 07284, 05928, 15586, 42471, 60961 #### [facility] [address] [place] [address], USApH (Bld)7.49 [pH]High7.35-7.45The Wayne HospitalComment on above:Result Comment: PLEASE NOTE: Effective 12/02/18, reference ranges for Respiratory GEM analyzers running arterial blood have been updated to reflect the vault manager's published reference ranges.Performed By: #### 40825, 54805, 10365, 52816, 02642 #### [facility] [address] [place] [address], USABASE EXCESS1 mmol/FWkzeth-4-5Bno Wayne HospitalComment on above:Performed By: #### 44728, 17457, 87522, 47565, 74727 #### [facility] [address] [place] [address], USADELIVERY SYSTEMSVENTILATORNoBethesda North HospitalComment on above:Performed By: #### 67735, 55441, 29289, 14817, 65048 #### [facility] [address] [place] [address], LCRHIT416 %NormalThe [facility] Comment on above:Performed By: #### 78558, 93621, 18820, 78369, 84367 #### [facility] [address] [place] [address], USAHCO3 (Bld) [Moles/Vol]24 mmol/QKafiap71-34Hgq Wayne HospitalComment on above:Performed By: #### 76151, 46119, 75720, 21181, 70077 #### [facility] [address] [place] [address], USAIONIZED CALCIUM1.07 mmol/LLow1.13-1.32The Wayne HospitalComment on above:Performed By: #### 55475, 73037, 25358, 35432, 26315 #### [facility] [address] [place] [address], USAMIN QQNQZU57.6NormMount St. [facility] Comment on above:Performed By: #### 58462, 14242, 19791, 77161, 23124 #### [facility] [address] [place] [address], USAMODALITYPositiveNoBethesda North HospitalComment on above:Performed By: #### 42224, 12480, 91971, 05197, 29193 #### [facility] [address] [place] [address], USAOxygen (Bld) [Partial pressure]89 mm[Hg]Vdoijx04-047Uat [facility] HospitalComment on above:Performed By: #### 72424, 17736, 62995, 84667, 86034 #### [facility] [address] [place] [address], USAOxygen saturation in Blood94.7 %Vipixn90.0-97.0The Wayne HospitalComment on above:Performed By: #### 39989, 59363, 84243, 77592, 82900 #### [facility] [address] [place] [address], BZFUUR364 eoGnXuv55-91Epv [facility] Comment on above:Performed By: #### 18249, 92479, 00013, 74923, 87901 #### [facility] [address] [place] [address], USAPEEP8.0 ANR47EgcpwzLnlBethesda North Hospital Comment on above:Performed By: #### 94683, 33453, 15263, 97942, 27629 #### [facility] [address] [place] [address], USApH (Bld)7.51 [pH]High7.35-7.45The Wayne HospitalComment on above:Result Comment: PLEASE NOTE: Effective 12/02/18, reference ranges for Respiratory GEM analyzers running arterial blood have been updated to reflect the vault manager's published reference ranges.Performed By: #### 32567, 63572, 36927, 18110, 51986 #### [facility] [address] [place] [address], USAPRESSURE BYWPJFD96FaurnnLtzFirelands Regional Medical CenterComment on above:Performed By: #### 75216, 70714, 00214, 76979, 03941 #### [facility] [address] [place] [address], USABASE EXCESS0 mmol/LVeatbk-6-7Rpt [facility] HospitalComment on above:Performed By: #### 55603, 36685, 81713, 85846, 27946 #### [facility] [address] [place] [address], USAD[address] SYSTEMSMount [address]. Mary HospitalComment on above:Performed By: #### 14212, 77481, 65764, 27453, 94168 #### [facility] [address] [place] [address], TOZWNJ098 %NormalThe [facility] Comment on above:Performed By: #### 32133, 24160, 82821, 80103, 45148 #### [facility] [address] [place] [address], USAHCO3 (Bld) [Moles/Vol]23 mmol/HXvimhw45-15Jmj Wayne HospitalComment on above:Performed By: #### 03624, 38617, 80010, 64804, 69375 #### [facility] [address] [facility] [address], USAIONIZED CALCIUM1.07 mmol/LLow1.13-1.32The Wayne HospitalComment on above:Performed By: #### 31145, 27944, 47579, 58137, 38998 #### [facility] [address] [place] [address], USAMIN CFAHDY51.0[facility] Comment on above:Performed By: #### 77715, 16835, 16269, 88709, 19297 #### [facility] [address] [place] [address], USAMODALITYACNoBethesda North Hospital Comment on above:Performed By: #### 11845, 16374, 22422, 17401, 42662 #### [facility] [address] [place] [address], USAOxygen (Bld) [Partial pressure]94 mm[Hg]Utjqde60-465Swt [facility] HospitalComment on above:Performed By: #### 73113, 28514, 11375, 96647, 20931 #### [facility] [address] [place] [address], USAOxygen saturation in Blood95.1 %Eqgzdj89.0-97.0The Wayne HospitalComment on above:Performed By: #### 94225, 71746, 44221, 29704, 74075 #### [facility] [address] [place] [address], QWWTZE412 zwPyTxp71-10Rct [facility] Comment on above:Performed By: #### 04256, 89442, 85659, 99471, 49345 #### [facility] [address] [place] [address], USAPEEP8.0 NVO14JwlangQixBethesda North Hospital Comment on above:Performed By: #### 27840, 04101, 23542, 57676, 73779 #### [facility] [address] [place] [address], USApH (Bld)7.49 [pH]High7.35-7.45The Wayne HospitalComment on above:Result Comment: PLEASE NOTE: Effective 12/02/18, reference ranges for Respiratory GEM analyzers running arterial blood have been updated to reflect the vault manager's published reference ranges.Performed By: #### 58265, 50324, 28392, 63493, 12431 #### [facility] [address] [place] [address], USATIDAL VOLUME (VT) CC700 ccNormalThe Wayne HospitalComment on above:Performed By: #### 41837, 07224, 20294, 12876, 05724 #### [facility] [address] [place] [address], USABASE EXCESS0 mmol/DWdgmjz-1-3Iww [facility] HospitalComment on above:Performed By: #### 99247, 86551, 53301, 13880, 62309 #### [facility] [address] [place] [address], USADELIVERY SYSTEMSMVNoBethesda North HospitalComment on above:Performed By: #### 37622, 89898, 73377, 50516, 70501 #### [facility] [address] [place] [address], PHFZSH800 %NormalThe [facility] Comment on above:Performed By: #### 28505, 90779, 06381, 30225, 86157 #### [facility] [address] [place] [address], USAHCO3 (Bld) [Moles/Vol]23 mmol/RImefau24-03Pvv [facility] HospitalComment on above:Performed By: #### 78861, 00549, 40366, 16956, 46236 #### [facility] [address] [place] [address], USAIONIZED CALCIUM1.14 mmol/LNormal1.13-1.32The [facility] HospitalComment on above:Performed By: #### 18676, 78486, 77963, 22110, 07376 #### [facility] [address] [place] [address], USAMIN EKWPZA51.3[facility] Comment on above:Performed By: #### 02102, 92380, 90781, 81080, 59842 #### [facility] [address] [place] [address], USAMODALITYACNoBethesda North Hospital Comment on above:Performed By: #### 79142, 38098, 03283, 38709, 70061 #### [facility] [address] [place] [address], USAOxygen (Bld) [Partial pressure]71 mm[Hg]Yex66-546Wdd [facility] HospitalComment on above:Performed By: #### 89921, 34200, 27323, 57052, 56368 #### [facility] [address] [place] [address], USAOxygen saturation in Blood92.6 %Low94.0-97.0The Wayne HospitalComment on above:Performed By: #### 04366, 18234, 59984, 18614, 67976 #### [facility] [address] [place] [address], NMXXFT492 eeUbKuu76-19Ipn [facility] Comment on above:Performed By: #### 69565, 32919, 39748, 79325, 86640 #### [facility] [address] [place] [address], USAPEEP8.0 TSC52CesnunZydBethesda North Hospital Comment on above:Performed By: #### 35373, 56160, 58858, 56043, 63964 #### [facility] [address] [place] [address], USAPF KTZXG521 mmHgNoBethesda North HospitalComment on above:Performed By: #### 74456, 48308, 58384, 25835, 75180 #### [facility] [address] [place] [address], USApH (Bld)7.47 [pH]High7.35-7.45The Wayne HospitalComment on above:Result Comment: PLEASE NOTE: Effective 12/02/18, reference ranges for Respiratory GEM analyzers running arterial blood have been updated to reflect the vault manager's published reference ranges.Performed By: #### 35526, 09544, 24361, 56419, 79390 #### [facility] [address] [place] [address], USATIDAL VOLUME (VT) CC700 ccNormalThe Wayne HospitalComment on above:Performed By: #### 08959, 47066, 73353, 37681, 03812 #### [facility] [address] [place] [address], USABASIC METABOLIC PANELon 52-43-6705Ufangye [Mass/Vol]8.6 mg/dLNormal8.6-10.3The Wayne HospitalComment on above:Order Comment: << On admission If not done in ED>> No: Do not add to previous drawPerformed By: #### 50134, 62957, 99641, 96391, 73691 #### [facility] [address] [place] [address], USAChloride [Moles/Vol]104 mmol/DCnublp70-027Krd [facility] HospitalComment on above:Order Comment: << On admission If not done in ED>> No: Do not add to previous drawPerformed By: #### 83716, 04259, 36488, 48159, 60683 #### [facility] [address] [place] [address], USACO2 [Moles/Vol]26 mmol/WOzfuxn06-51Tjo [facility] HospitalComment on above:Order Comment: << On admission If not done in ED>> No: Do not add to previous drawPerformed By: #### 51091, 65313, 54857, 86353, 02382 #### [facility] [address] [place] [address], USACreatinine [Mass/Vol]1.48 mg/dLHigh0.70-1.30The [facility] HospitalComment on above:Order Comment: << On admission If not done in ED>> No: Do not add to previous drawPerformed By: #### 90857, 41306, 72484, 13205, 31712 #### [facility] [address] [place] [address], USAGFR/1.73 sq M predicted among blacks MDRD (S/P/Bld) [Vol rate/Area]60 ml/min/1.73sq mAbnormal>60The [facility] Comment on above:Order Comment: << On admission If not done in ED>> No: Do not add to previous drawPerformed By: #### 87972, 44088, 03986, 61788, 33843 #### [facility] [address] [facility] [address], USAGFR/1.73 sq M predicted among non-blacks MDRD (S/P/Bld) [Vol rate/Area]50 ml/min/1.73sq mAbnormal>60The [facility] HospitalComment on above:Order Comment: << On admission If not done in ED>> No: Do not add to previous drawPerformed By: #### 57804, 66928, 95764, 40427, 27089 #### [facility] [address] [facility] [address], USAGlucose [Mass/Vol]115 mg/kJVhpy09-728Cda [facility] HospitalComment on above:Order Comment: << On admission If not done in ED>> No: Do not add to previous drawPerformed By: #### 62988, 03078, 69326, 31826, 24692 #### [facility] [address] [address], USAPotassium [Moles/Vol]3.4 mmol/LLow3.5-5.1The [facility] HospitalComment on above:Order Comment: << On admission If not done in ED>> No: Do not add to previous drawPerformed By: #### 23838, 15870, 30594, 35233, 72275 #### [facility] [address] [place] [address], USASodium [Moles/Vol]138 mmol/MVgfsee936-588Xnh [facility] HospitalComment on above:Order Comment: << On admission If not done in ED>> No: Do not add to previous drawPerformed By: #### 27367, 55063, 51580, 30367, 64272 #### [facility] [address] [place] [address], USAUrea nitrogen [Mass/Vol]23 mg/dLNormal7-25The [facility] HospitalComment on above:Order Comment: << On admission If not done in ED>> No: Do not add to previous drawPerformed By: #### 89394, 18313, 18065, 79699, 19081 #### [facility] [address] [place] [address], USACalcium [Mass/Vol]8.1 mg/dLLow8.6-10.3The [facility] HospitalComment on above:Order Comment: << On admission If not done in ED>> No: Do not add to previous drawPerformed By: #### 73227, 91118, 29888, 12551, 49543 #### [facility] [address] [place] [address], USAChloride [Moles/Vol]105 mmol/QWenzbr01-946Uow [facility] HospitalComment on above:Order Comment: << On admission If not done in ED>> No: Do not add to previous drawPerformed By: #### 51873, 67995, 04405, 24642, 97202 #### [facility] [address] [place] [address], USACO2 [Moles/Vol]26 mmol/GCausal67-26Lsv [facility] HospitalComment on above:Order Comment: << On admission If not done in ED>> No: Do not add to previous drawPerformed By: #### 48237, 23860, 60721, 03135, 23938 #### [facility] [address] [place] [address], USACreatinine [Mass/Vol]1.37 mg/dLHigh0.70-1.30The [facility] HospitalComment on above:Order Comment: << On admission If not done in ED>> No: Do not add to previous drawPerformed By: #### 41275, 41413, 97538, 31624, 87685 #### [facility] [address] [place] [address], USAGFR/1.73 sq M predicted among blacks MDRD (S/P/Bld) [Vol rate/Area]mL/min/{1.73_m2}Normal>60The [facility] Comment on above:Order Comment: << On admission If not done in ED>> No: Do not add to previous drawPerformed By: #### 96662, 25577, 42786, 43678, 02770 #### [facility] [address] [place] [address], USAGFR/1.73 sq M predicted among non-blacks MDRD (S/P/Bld) [Vol rate/Area]54 ml/min/1.73sq mAbnormal>60The [facility] HospitalComment on above:Order Comment: << On admission If not done in ED>> No: Do not add to previous drawPerformed By: #### 25056, 30954, 14067, 67489, 78843 #### [facility] [address] [place] [address], USAGlucose [Mass/Vol]113 mg/sKTnkk22-397Jds [facility] HospitalComment on above:Order Comment: << On admission If not done in ED>> No: Do not add to previous drawPerformed By: #### 66889, 44348, 18617, 36923, 43009 #### [facility] [address] [place] [address], USAPotassium [Moles/Vol]3.3 mmol/LLow3.5-5.1The [facility] HospitalComment on above:Order Comment: << On admission If not done in ED>> No: Do not add to previous drawPerformed By: #### 54972, 17117, 14784, 78724, 85422 #### [facility] [address] [place] [address], USASodium [Moles/Vol]138 mmol/LQtncsb034-573Dkm [facility] HospitalComment on above:Order Comment: << On admission If not done in ED>> No: Do not add to previous drawPerformed By: #### 01322, 67372, 02825, 71474, 86412 #### [facility] [address] [place] [address], USAUrea nitrogen [Mass/Vol]19 mg/dLNormal7-25The [facility] HospitalComment on above:Order Comment: << On admission If not done in ED>> No: Do not add to previous drawPerformed By: #### 90018, 65969, 49235, 08477, 92520 #### [facility] [address] [place] [address], USACalcium [Mass/Vol]7.4 mg/dLLow8.6-10.3The [facility] HospitalComment on above:Order Comment: << On admission If not done in ED>> No: Do not add to previous drawPerformed By: #### 70338, 27057, 93142, 82821, 86184 #### [facility] [address] [place] [address], USAChloride [Moles/Vol]109 mmol/JSrms78-045Evn [facility] HospitalComment on above:Order Comment: << On admission If not done in ED>> No: Do not add to previous drawPerformed By: #### 79197, 05260, 66479, 60410, 95675 #### [facility] [address] [place] [address], USACO2 [Moles/Vol]21 mmol/LWqynrb29-28Qhv [facility] HospitalComment on above:Order Comment: << On admission If not done in ED>> No: Do not add to previous drawPerformed By: #### 20857, 01265, 54075, 49228, 67278 #### [facility] [address] [place] [address], USACreatinine [Mass/Vol]1.22 mg/dLNormal0.70-1.30The [facility] HospitalComment on above:Order Comment: << On admission If not done in ED>> No: Do not add to previous drawPerformed By: #### 21369, 33245, 20599, 94430, 65069 #### [facility] [address] [place] [address], USAGFR/1.73 sq M predicted among blacks MDRD (S/P/Bld) [Vol rate/Area]mL/min/{1.73_m2}Normal>60The [facility] Comment on above:Order Comment: << On admission If not done in ED>> No: Do not add to previous drawPerformed By: #### 30707, 45374, 80768, 04791, 77926 #### [facility] [address] [place] [address], USAGFR/1.73 sq M predicted among non-blacks MDRD (S/P/Bld) [Vol rate/Area]mL/min/{1.73_m2}Normal>60The [facility] Comment on above:Order Comment: << On admission If not done in ED>> No: Do not add to previous drawPerformed By: #### 89459, 77101, 54224, 02001, 00710 #### [facility] [address] [place] [address], USAGlucose [Mass/Vol]129 mg/eXDbjo48-705Bhe [facility] HospitalComment on above:Order Comment: << On admission If not done in ED>> No: Do not add to previous drawPerformed By: #### 42193, 54127, 91023, 97098, 30220 #### [facility] [address] [place] [address], USAPotassium [Moles/Vol]3.1 mmol/LLow3.5-5.1The [facility] HospitalComment on above:Order Comment: << On admission If not done in ED>> No: Do not add to previous drawPerformed By: #### 78456, 92398, 42177, 93819, 29838 #### [facility] [address] [place] [address], USASodium [Moles/Vol]139 mmol/WRqwwxc905-888Opq [facility] HospitalComment on above:Order Comment: << On admission If not done in ED>> No: Do not add to previous drawPerformed By: #### 28945, 15627, 98851, 51575, 16430 #### [facility] [address] [place] [address], USAUrea nitrogen [Mass/Vol]17 mg/dLNormal7-25The [facility] HospitalComment on above:Order Comment: << On admission If not done in ED>> No: Do not add to previous drawPerformed By: #### 80226, 92360, 51054, 70343, 41322 #### [facility] [address] [place] [address], USACBC COMPLETE BLOOD COUNTon 25-88-6328Kojnymoxzib distribution width (RBC) [Ratio]13.5 %Yatezw80.5-15.0The [facility] HospitalComment on above:Order Comment: << On admission If not done in ED>> No: Do not add to previous drawPerformed By: #### 85467, 01462, 65474, 13358, 05127 #### [facility] [address] [place] [address], USAHematocrit (Bld) [Volume fraction]33.7 %Low39.0-50.0The [facility] HospitalComment on above:Order Comment: << On admission If not done in ED>> No: Do not add to previous drawPerformed By: #### 14969, 46124, 86498, 90520, 26565 #### [facility] [address] [place] [address], USAHemoglobin (Bld) [Mass/Vol]10.9 g/dLLow13.0-17.0The [facility] HospitalComment on above:Order Comment: << On admission If not done in ED>> No: Do not add to previous drawPerformed By: #### 82229, 86490, 43355, 04277, 84395 #### [facility] [address] [place] [address], [facility] HOSPITALMCH (RBC) [Entitic mass]29.3 hvMvcaud69.0-33.0The [facility] HospitalComment on above:Order Comment: << On admission If not done in ED>> No: Do not add to previous drawPerformed By: #### 65849, 95817, 84601, 71337, 69045 #### [facility] [address] [place] [address], [facility] HOSPITALMCHC (RBC) [Mass/Vol]32.3 g/tYKxyeex89.0-35.0The [facility] HospitalComment on above:Order Comment: << On admission If not done in ED>> No: Do not add to previous drawPerformed By: #### 98128, 25444, 28839, 38155, 95239 #### [facility] [address] [place] [address], [facility] HOSPITALMCV (RBC) [Entitic vol]90.6 sWFtlldt78.0-98.0The Wayne HospitalComment on above:Order Comment: << On admission If not done in ED>> No: Do not add to previous drawPerformed By: #### 52984, 62440, 67888, 30824, 39435 #### [facility] [address] [place] [address], USANucleated RBC/100 WBC (Bld) [Ratio]0 %Normal0-0The Wayne HospitalComment on above:Order Comment: << On admission If not done in ED>> No: Do not add to previous drawPerformed By: #### 30709, 30597, 92220, 06966, 34630 #### [facility] [address] [place] [address], USAPLAT [id number] 10*3/kJKfs137-840Frf Wayne HospitalComment on above:Order Comment: << On admission If not done in ED>> No: Do not add to previous drawPerformed By: #### [id number], 05914, 76393, 86016, 69357 #### [facility] [address] [place] [address], [facility]PITALRBC (Bld) [#/Vol]3.72 10*6/uLLow4.20-5.70The Wayne HospitalComment on above:Order Comment: << On admission If not done in ED>> No: Do not add to previous drawPerformed By: #### [id number], 60705, 10184, 43240, 86653 #### [facility] [address] [place] [address], USAWBC (Bld) [#/Vol]17.24 10*3/uLHigh4.00-10.60The Wayne HospitalComment on above:Order Comment: << On admission If not done in ED>> No: Do not add to previous drawPerformed By: #### 91649, 99485, 12611, 11773, 26799 #### [facility] [address] [place] [address], USAErythrocyte distribution width (RBC) [Ratio]13.5 %Normal 11.5-15.0The Wayne HospitalComment on above:Order Comment: << On admission If not done in ED>> No: Do not add to previous drawPerformed By: #### 61912, 68643, 05369, 87925, 79617 #### [facility] [address] [place] [address], USAHematocrit (Bld) [Volume fraction]35.2 %Low39.0-50.0The Wayne HospitalComment on above:Order Comment: << On admission If not done in ED>> No: Do not add to previous drawPerformed By: #### 20069, 92630, 68610, 50486, 65121 #### [facility] [address] [place] [address], USAHemoglobin (Bld) [Mass/Vol]11.5 g/dLLow13.0-17.0The Wayne HospitalComment on above:Order Comment: << On admission If not done in ED>> No: Do not add to previous drawPerformed By: #### 65001, 37181, 77610, 36174, 62479 #### [facility] [address] [place] [address], USAIMM PLATELET FRAC4.3 %Normal0.8-6.3The Wayne HospitalComment on above:Order Comment: << On admission If not done in ED>> No: Do not add to previous drawPerformed By: #### 38733, 95808, 27168, 46954, 04043 #### [facility] [address] [place] [address], USAMCH (RBC) [Entitic mass]29.4 hsLbrhul77.0-33.0The Wayne HospitalComment on above:Order Comment: << On admission If not done in ED>> No: Do not add to previous drawPerformed By: #### 16885, 83806, 54244, 03216, 82718 #### [facility] [address] [place] [address], [facility] ALTUSHC (RBC) [Mass/Vol]32.7 g/vSLsnqxx12.0-35.0The Wayne HospitalComment on above:Order Comment: << On admission If not done in ED>> No: Do not add to previous drawPerformed By: #### 46895, 16376, 94051, 04712, 78262 #### [facility] [address] [facility] [place] [address], [facility] ALTUSV (RBC) [Entitic vol]90.0 eWXkojax03.0-98.0The Wayne HospitalComment on above:Order Comment: << On admission If not done in ED>> No: Do not add to previous drawPerformed By: #### 91244, 94839, 31071, 69825, 70723 #### [facility] [address] [place] [address], [facility] HOSPITALNucleated RBC/100 WBC (Bld) [Ratio]0 %Normal0-0The Wayne HospitalComment on above:Order Comment: << On admission If not done in ED>> No: Do not add to previous drawPerformed By: #### 93554, 42181, 89866, 19495, 58677 #### [facility] [address] [place] [address], USAPLAT CNT99 10*3/zNZpe859-977Nyu Wayne HospitalComment on above:Order Comment: << On admission If not done in ED>> No: Do not add to previous drawPerformed By: #### 82773, 53050, 59509, 81548, 76898 #### [facility] [address] [place] [address], [facility] HOSPITALRBC (Bld) [#/Vol]3.91 10*6/uLLow4.20-5.70The Wayne HospitalComment on above:Order Comment: << On admission If not done in ED>> No: Do not add to previous drawPerformed By: #### 57531, 89850, 45470, 40436, 91597 #### [facility] [address] [place] [address], USAWBC (Bld) [#/Vol]19.55 10*3/uLHigh4.00-10.60The Wayne HospitalComment on above:Order Comment: << On admission If not done in ED>> No: Do not add to previous drawPerformed By: #### 22988, 65932, 25861, 16484, 37754 #### [facility] [address] [place] [address], USAErythrocyte distribution width (RBC) [Ratio]13.5 %Normal 11.5-15.0The Wayne HospitalComment on above:Order Comment: << On admission If not done in ED>> No: Do not add to previous drawPerformed By: #### 85340, 08454, 37577, 43410, 62727 #### [facility] [address] [place] [address], USAHematocrit (Bld) [Volume fraction]38.1 %Low39.0-50.0The Wayne HospitalComment on above:Order Comment: << On admission If not done in ED>> No: Do not add to previous drawPerformed By: #### 75469, 60927, 64535, 07271, 62020 #### [facility] [address] [place] [address], USAHemoglobin (Bld) [Mass/Vol]12.2 g/dLLow13.0-17.0The Wayne HospitalComment on above:Order Comment: << On admission If not done in ED>> No: Do not add to previous drawPerformed By: #### 98335, 39371, 36394, 41669, 30735 #### [facility] [address] [place] [address], USAIMM PLATELET FRAC3.8 %Normal0.8-6.3The Wayne HospitalComment on above:Order Comment: << On admission If not done in ED>> No: Do not add to previous drawPerformed By: #### 08907, 60898, 17731, 84025, 08504 #### [facility] [address] [place] [address], [facility] ALTUSH (RBC) [Entitic mass]29.0 ibNvdyau27.0-33.0The Wayne HospitalComment on above:Order Comment: << On admission If not done in ED>> No: Do not add to previous drawPerformed By: #### 22224, 58409, 41135, 56427, 51391 #### [facility] [address] [facility] [address], [facility]HC (RBC) [Mass/Vol]32.0 g/fPNdbfqa63.0-35.0The Wayne HospitalComment on above:Order Comment: << On admission If not done in ED>> No: Do not add to previous drawPerformed By: #### 47073, 14913, 32805, 95988, 49411 #### [facility] [address] [place] [address], [facility] ALTUSV (RBC) [Entitic vol]90.7 iHVesutw20.0-98.0The Wayne HospitalComment on above:Order Comment: << On admission If not done in ED>> No: Do not add to previous drawPerformed By: #### 01294, 10972, 59527, 56061, 42186 #### [facility] [address] [facility] [address], USANucleated RBC/100 WBC (Bld) [Ratio]0 %Normal0-0The Wayne HospitalComment on above:Order Comment: << On admission If not done in ED>> No: Do not add to previous drawPerformed By: #### 43237, 10906, 42116, 41492, 42876 #### [facility] [address] [place] [address], USAPLAT VRY711 10*3/lILvg167-606Dyh Wayne HospitalComment on above:Order Comment: << On admission If not done in ED>> No: Do not add to previous drawPerformed By: #### 57799, 00464, 14313, 88182, 11015 #### [facility] [address] [place] [address], USARBC (Bld) [#/Vol]4.20 10*6/uLNormal4.20-5.70The Wayne HospitalComment on above:Order Comment: << On admission If not done in ED>> No: Do not add to previous drawPerformed By: #### 64219, 36700, 28555, 85669, 88134 #### [facility] [address] [place] [address], USAWBC (Bld) [#/Vol]21.05 10*3/uLHigh4.00-10.60The Wayne HospitalComment on above:Order Comment: << On admission If not done in ED>> No: Do not add to previous drawPerformed By: #### 14331, 52037, 14060, 09678, 84819 #### [facility] [address] [place] [address], USACOOXIMETRYon 27-73-8682KTDI9 %NormalThe Wayne HospitalComment on above:Performed By: #### 89428, 32577, 93054, 88883, 34762 #### [facility] [address] [place] [address], USAMETHB1 %NormalThe [facility] Comment on above:Performed By: #### 19847, 17219, 17939, 98708, 11370 #### [facility] [address] [place] [address], USAOxygen saturation in Blood59.8 %Low65.0-75.0The Wayne HospitalComment on above:Performed By: #### 96542, 18209, 23637, 26523, 68274 #### [facility] [address] [place] [address], DHHKAK15.9 g/dLNoBethesda North Hospital Comment on above:Performed By: #### 30205, 20868, 63411, 59149, 15232 #### [facility] [address] [place] [address], USACOHB2 %NormalThe Wayne HospitalComment on above:Performed By: #### 11634, 83042, 33528, 66890, 12026 #### [facility] [address] [place] [address], USAMETHB1 %NormalThe [facility] Comment on above:Performed By: #### 84035, 06181, 35562, 28988, 95829 #### [facility] [address] [place] [address], USAOxygen saturation in Blood70.2 %Pluelf69.0-75.0The Wayne HospitalComment on above:Performed By: #### 60339, 49724, 42220, 66631, 22607 #### [facility] [address] [place] [address], TGUKZP68.5 g/dLNoBethesda North Hospital Comment on above:Performed By: #### 27801, 49884, 91186, 79174, 82517 #### [facility] [address] [place] [address], USAMAGNESIUM BLOODon 79-94-5519Dagzcjcrh [Mass/Vol]2.1 mg/dL Normal1.9-2.7The Wayne HospitalComment on above:Order Comment: << On admission If not done in ED>> No: Do not add to previous drawPerformed By: #### 66003, 83133, 58105, 14540, 76624 #### [facility] [address] [place] [address], USAMagnesium [Mass/Vol]2.1 mg/dLNormal1.9-2.7The Wayne HospitalComment on above:Order Comment: << On admission If not done in ED>> No: Do not add to previous drawPerformed By: #### 24142, 04899, 53141, 71506, 14909 #### [facility] [address] [place] [address], USAMagnesium [Mass/Vol]2.2 mg/dLNormal1.9-2.7The [facility] HospitalComment on above:Order Comment: << On admission If not done in ED>> No: Do not add to previous drawPerformed By: #### 47769, 67790, 69184, 76481, 61025 #### [facility] [address] [place] [address], USAPOC GLUCOSE LABon 47-86-3128Hdaxniy [Mass/Vol]107 mg/dLHigh 70-100The [facility] HospitalComment on above:Performed By: #### 10269, 05331, 87225, 24653, 56153 #### [facility] [address] [place] [address], USAGlucose [Mass/Vol]103 mg/vZZjul80-500Czw Wayne HospitalComment on above:Performed By: #### 67233, 35321, 61631, 10752, 22374 #### [facility] [address] [place] [address], USAGlucose [Mass/Vol]112 mg/bGThzg83-073Lmn [facility] HospitalComment on above:Performed By: #### 29474, 74183, 10367, 91759, 73034 #### [facility] [address] [place] [address], USAGlucose [Mass/Vol]127 mg/fGBaiq32-740Huj [facility] HospitalComment on above:Performed By: #### 41221, 23739, 61229, 35000, 21633 #### [facility] [address] [place] [address], USAGlucose [Mass/Vol]95 mg/jUNavqio54-140Tpz [facility] HospitalComment on above:Performed By: #### 54263, 49359, 73504, 15056, 00977 #### [facility] [address] [place] [address], USAGlucose [Mass/Vol]104 mg/aBHsrj96-773Iea [facility] HospitalComment on above:Performed By: #### 69078, 08907, 18377, 74994, 55071 #### [facility] [address] [place] [address], USAGlucose [Mass/Vol]98 mg/wFDpwuds18-959Smm [facility] HospitalComment on above:Performed By: #### 13637, 02845, 02614, 82392, 16793 #### [facility] [address] [place] [address], USAGlucose [Mass/Vol]113 mg/hHQbfq47-550Caf [facility] HospitalComment on above:Performed By: #### 96343, 69476, 87356, 16326, 90802 #### [facility] [address] [place] [address], USAGlucose [Mass/Vol]130 mg/sAQmym94-944Ncx [facility] HospitalComment on above:Performed By: #### 31954, 21069, 97679, 34572, 84200 #### [facility] [address] [place] [address], USAGlucose [Mass/Vol]130 mg/yVUrbp35-633Bvg [facility] HospitalComment on above:Performed By: #### 33493, 45573, 06664, 25415, 43600 #### [facility] [address] [address], USAGlucose [Mass/Vol]129 mg/jYEqwc55-852Nem [facility] HospitalComment on above:Performed By: #### 31870, 73622, 63301, 45974, 87545 #### [facility] [address] [address], USAGlucose [Mass/Vol]108 mg/lQGmky78-370Itr [facility] HospitalComment on above:Performed By: #### 09655, 05007, 30525, 89377, 37229 #### [facility] [address] [address], USAGlucose [Mass/Vol]101 mg/wJXdff45-753Smf [facility] HospitalComment on above:Performed By: #### 25388, 37631, 38703, 48772, 01851 #### [facility] [address] [place] [address], USAPORTABLE CHEST 1 VIEWon 97-58-3544CGDULBVQ CHEST 1 VIEW [facility] Department [facility] Radiology [address] [place] [id number] Patient Name: TRACIE CRAIN : 1965 Sex: M Age: Race: NA Pt. 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 COMPARISON: 03/20/2019. FINDINGS: ET tube is without significant change, in satisfactory position. Enteric tube is seen traversing below diaphragm and out of field of view, in satisfactory position. Horseheads-Sher catheter is again seen with tip projecting [...] findings. Electronically signed by:Yenni Osuna. Transcribed by: [email or web address], User Resident: CYNTHIA FINLEY Electronically Signed by: YENNI OSUNA @ 03/22/2019 01:07 PM I personally read this/these film(s) with this residentFirelands Regional Medical CenterComment on above:Order Comment: << On admission If not done in ED>> No: Do not add to previous drawARTERIAL BLOOD GAS WITH ICAon 90-81-7971VFLI EXCESS-4 mmol/LLow-2-3The University of [place] Medical CenterComment on above: Performed By: #### 89769, 78300, 60771, 56899, 83781 #### [facility] [address] [place] [address], USADELIVERY SYSTEMSVENTILATORNoBethesda North HospitalComment on above:Performed By: #### 93453, 31450, 70120, 58825, 74278 #### [facility] [address] [place] [address], UZGCYY906 %NormalThe [facility] Comment on above:Performed By: #### 81795, 13337, 26657, 19871, 71671 #### [facility] [address] [place] [address], USAHCO3 (Bld) [Moles/Vol]19 mmol/QFms16-21Hvf [facility] HospitalComment on above:Performed By: #### 32506, 74973, 51843, 28747, 97207 #### [facility] [address] [place] [address], USAIONIZED CALCIUM1.06 mmol/LLow1.13-1.32The [facility] HospitalComment on above:Performed By: #### 38389, 84126, 63817, 09784, 54034 #### [facility] [address] [place] [address], USAMIN UVVMWE40.2NormalThe [facility] Comment on above:Performed By: #### 02483, 43081, 26833, 27623, 56310 #### [facility] [address] [place] [address], USAMODALITYAC-ASSIST CONTROLNoBethesda North HospitalComment on above:Performed By: #### 65908, 54384, 69438, 74234, 65135 #### [facility] [address] [place] [address], USAOxygen (Bld) [Partial pressure]82 mm[Hg]Xxl97-548Rwu [facility] HospitalComment on above:Performed By: #### 95999, 86843, 95904, 94722, 55041 #### [facility] [address] [place] [address], USAOxygen saturation in Blood94.4 %Frwfli91.0-97.0The [facility] HospitalComment on above:Performed By: #### 30165, 54722, 11154, 94357, 21818 #### [facility] [address] [place] [address], QDRCII740 fpQfNhi91-01Obo [facility] Comment on above:Performed By: #### 36556, 04733, 04007, 54125, 24200 #### [facility] [address] [place] [address], USAPEEP8.0 USV21GtlygoWma [facility] Comment on above:Performed By: #### 81212, 35377, 42621, 88076, 98589 #### [facility] [address] [place] [address], USApH (Bld)7.45 [pH]Normal7.35-7.45The [facility] HospitalComment on above:Result Comment: PLEASE NOTE: Effective 12/02/18, reference ranges for Respiratory GEM analyzers running arterial blood have been updated to reflect the vault manager's published reference ranges.Performed By: #### 73247, 91766, 92088, 89916, 23888 #### [facility] [address] [place] [address], USATIDAL VOLUME (VT) CC700 ccNormalThe Wayne HospitalComment on above:Performed By: #### 97923, 34951, 52321, 91658, 41245 #### [facility] [address] [place] [address], USABASE EXCESS-2 mmol/MLhqmlw-2-2Amm [facility] [place] Medical CenterComment on above:Performed By: #### 74683, 45102, 19866, 51869, 18641 #### [facility] [address] [place] [address], USADELIVERY SYSTEMSMVFirelands Regional Medical CenterComment on above:Performed By: #### 98785, 74815, 25616, 95373, 52712 #### [facility] [address] [place] [address], HKOCXT0029 %NormalThe [facility] Comment on above:Performed By: #### 98866, 06918, 73230, 98563, 22608 #### [facility] [address] [place] [address], USAHCO3 (Bld) [Moles/Vol]22 mmol/RYwqmbr40-64Thp [facility] HospitalComment on above:Performed By: #### 45496, 47704, 63622, 77450, 00972 #### [facility] [address] [place] [address], USAIONIZED CALCIUM1.18 mmol/LNormal1.13-1.32The [facility] HospitalComment on above:Performed By: #### 14526, 13005, 86056, 42095, 03099 #### [facility] [address] [place] [address], USAMIN LQMXBF48.0Fire[facility] Comment on above:Performed By: #### 90832, 81874, 50734, 90206, 69264 #### [facility] [address] [place] [address], USAMODALITYACFirelands Regional Medical Center Comment on above:Performed By: #### 39618, 64003, 46839, 59266, 57421 #### [facility] [address] [place] [address], USAOxygen (Bld) [Partial pressure]109 mm[Hg]Critically high 83-108The [facility] HospitalComment on above:Performed By: #### 44922, 70183, 70077, 70975, 23781 #### [facility] [address] [place] [address], USAOxygen saturation in Blood95.6 %Hqgqln09.0-97.0The [facility] HospitalComment on above:Performed By: #### 51036, 76618, 51711, 07535, 36014 #### [facility] [address] [place] [address], XNEJOE233 tuFtIlo70-38Uog [facility] Comment on above:Performed By: #### 80255, 36548, 76130, 62682, 94386 #### [facility] [address] [place] [address], BUWFEEV85.0 AEM55GibaboIogBethesda North Hospital Comment on above:Performed By: #### 50985, 73456, 60026, 16069, 45685 #### [facility] [address] [place] [address], USAPF HLVLM091 mmHgNoBethesda North HospitalComment on above:Performed By: #### 76530, 15748, 82810, 87473, 59859 #### [facility] [address] [place] [address], USApH (Bld)7.43 [pH]Normal7.35-7.45The [facility] HospitalComment on above:Result Comment: PLEASE NOTE: Effective 12/02/18, reference ranges for Respiratory GEM analyzers running arterial blood have been updated to reflect the vault manager's published reference ranges.Performed By: #### 55294, 44493, 43670, 93574, 00878 #### [facility] [address] [place] [address], USATIDAL VOLUME (VT) CC700 ccNormalThe [facility] HospitalComment on above:Performed By: #### 79062, 44266, 03788, 89309, 19457 #### [facility] [address] [place] [address], USABASE EXCESS-4 mmol/LLow-2-3The [facility] HospitalComment on above:Performed By: #### 40293, 28439, 23787, 40689, 72510 #### [facility] [address] [place] [address], USADELIVERY SYSTEMSVENTILATORNoBethesda North HospitalComment on above:Performed By: #### 30134, 22002, 14512, 69499, 09047 #### [facility] [address] [place] [address], EFMPAM9384 %NormalThe [facility] Comment on above:Performed By: #### 52786, 20318, 87096, 88766, 77606 #### [facility] [address] [place] [address], USAHCO3 (Bld) [Moles/Vol]20 mmol/TLcb00-48Wnc [facility] HospitalComment on above:Performed By: #### 79802, 57519, 38841, 64393, 83403 #### [facility] [address] [facility] [address], USAIONIZED CALCIUM1.23 mmol/LNormal1.13-1.32The [facility] HospitalComment on above:Performed By: #### 01576, 88727, 46211, 00121, 58932 #### [facility] [address] [place] [address], USAMIN QCMSHH50.1NormalThe [facility] Comment on above:Performed By: #### 42318, 18234, 81995, 09350, 28242 #### [facility] [address] [place] [address], USAMODALITYAC-ASSIST CONTROLNoBethesda North HospitalComment on above:Performed By: #### 04297, 70045, 01595, 63459, 42696 #### [facility] [address] [place] [address], USAOxygen (Bld) [Partial pressure]90 mm[Hg]Naynwk89-588One [facility] HospitalComment on above:Performed By: #### 64603, 89730, 69412, 30762, 69883 #### [facility] [address] [place] [address], USAOxygen saturation in Blood95.1 %Nyvyzz15.0-97.0The [facility] HospitalComment on above:Performed By: #### 27221, 24117, 13992, 31295, 47626 #### [facility] [address] [place] [address], NICYLI894 ayGsUvc34-94Xza [facility] Comment on above:Performed By: #### 54429, 54598, 00376, 10540, 96699 #### [facility] [address] [place] [address], SGLSINH83.0 REM87ZfkbjxFkzBethesda North Hospital Comment on above:Performed By: #### 37428, 81794, 33243, 63398, 91569 #### [facility] [address] [place] [address], USAPF UJAUM931 mmHgNoBethesda North HospitalComment on above:Performed By: #### 85835, 01421, 54864, 09026, 22330 #### [facility] [address] [place] [address], USApH (Bld)7.40 [pH]Normal7.35-7.45The [facility] HospitalComment on above:Result Comment: PLEASE NOTE: Effective 12/02/18, reference ranges for Respiratory GEM analyzers running arterial blood have been updated to reflect the vault manager's published reference ranges.Performed By: #### 12638, 90293, 63468, 87833, 61172 #### [facility] [address] [place] [address], USATIDAL VOLUME (VT) CC700 ccNormalThe [facility] HospitalComment on above:Performed By: #### 07906, 52396, 84136, 83654, 63665 #### [facility] [address] [place] [address], USABASIC METABOLIC PANELon 54-41-8582Yvhmgds [Mass/Vol]8.1 mg/dLLow8.6-10.3The [facility] HospitalComment on above:Order Comment: << On admission If not done in ED>> No: Do not add to previous drawPerformed By: #### 39383, 51872, 20747, 28102, 28026 #### [facility] [address] [place] [address], USAChloride [Moles/Vol]112 mmol/SJeke90-058Ofv [facility] HospitalComment on above:Order Comment: << On admission If not done in ED>> No: Do not add to previous drawPerformed By: #### 47654, 13493, 70465, 31928, 68328 #### [facility] [address] [place] [address], USACO2 [Moles/Vol]24 mmol/OTdxlnr57-69Osa [facility] HospitalComment on above:Order Comment: << On admission If not done in ED>> No: Do not add to previous drawPerformed By: #### [id number], [id number], 45613, 30826, 01865 #### [facility] [address] [place] [address], USACreatinine [Mass/Vol]0.97 mg/dLNormal0.70-1.30The Wayne HospitalComment on above:Order Comment: << On admission If not done in ED>> No: Do not add to previous drawPerformed By: #### [id number], 25202, 86593, 57041, 03878 #### [facility] [address] [place] [address], USAGFR/1.73 sq M predicted among blacks MDRD (S/P/Bld) [Vol rate/Area]mL/min/{1.73_m2}Normal>60[facility] Comment on above:Order Comment: << On admission If not done in ED>> No: Do not add to previous drawPerformed By: #### 03968, 05410, 59805, 58673, 33691 #### [facility] [address] [place] [address], USAGFR/1.73 sq M predicted among non-blacks MDRD (S/P/Bld) [Vol rate/Area]mL/min/{1.73_m2}Normal>60[facility] Comment on above:Order Comment: << On admission If not done in ED>> No: Do not add to previous drawPerformed By: #### 80524, 95156, 08216, 36375, 98603 #### [facility] [address] [place] [address], USAGlucose [Mass/Vol]134 mg/zFJorl61-023Yaj Wayne HospitalComment on above:Order Comment: << On admission If not done in ED>> No: Do not add to previous drawPerformed By: #### 76098, 47240, 04677, 31776, 85505 #### [facility] [address] [place] [address], USAPotassium [Moles/Vol]3.9 mmol/LNormal3.5-5.1The Wayne HospitalComment on above:Order Comment: << On admission If not done in ED>> No: Do not add to previous drawPerformed By: #### 74380, 30143, 50507, 42831, 55552 #### [facility] [address] [place] [address], USASodium [Moles/Vol]142 mmol/WCwndzc193-845Pbl Wayne HospitalComment on above:Order Comment: << On admission If not done in ED>> No: Do not add to previous drawPerformed By: #### 62321, 01643, 86114, 50113, 39443 #### [facility] [address] [place] [address], USAUrea nitrogen [Mass/Vol]16 mg/dLNormal7-25The [facility] HospitalComment on above:Order Comment: << On admission If not done in ED>> No: Do not add to previous drawPerformed By: #### 67438, 83703, 14854, 80137, 11286 #### [facility] [address] [place] [address], USAChloride [Moles/Vol]113 mmol/AYuly94-141Oku [facility] HospitalComment on above:Order Comment: << On admission If not done in ED>> No: Do not add to previous drawPerformed By: #### 98321, 51254, 00653, 52068, 38622 #### [facility] [address] [place] [address], USACO2 [Moles/Vol]23 mmol/USkjmfb68-27Uos [facility] HospitalComment on above:Order Comment: << On admission If not done in ED>> No: Do not add to previous drawPerformed By: #### 59540, 75995, 25329, 77669, 79839 #### [facility] [address] [place] [address], USACreatinine [Mass/Vol]1.11 mg/dLNormal0.70-1.30The [facility] HospitalComment on above:Order Comment: << On admission If not done in ED>> No: Do not add to previous drawPerformed By: #### 55903, 98629, 80261, 59790, 46180 #### [facility] [address] [place] [address], USAGlucose [Mass/Vol]157 mg/rYXioy21-879Xtg [facility] HospitalComment on above:Order Comment: << On admission If not done in ED>> No: Do not add to previous drawPerformed By: #### 22427, 64008, 24498, 71069, 28341 #### [facility] [address] [place] [address], USAPotassium [Moles/Vol]4.0 mmol/LNormal3.5-5.1The [facility] HospitalComment on above:Order Comment: << On admission If not done in ED>> No: Do not add to previous drawPerformed By: #### 57470, 96529, 11738, 98470, 34592 #### [facility] [address] [place] [address], USASodium [Moles/Vol]143 mmol/RKilhdd223-509Dxw [facility] HospitalComment on above:Order Comment: << On admission If not done in ED>> No: Do not add to previous drawPerformed By: #### 45345, 26012, 63513, 22511, 03404 #### [facility] [address] [place] [address], USAUrea nitrogen [Mass/Vol]17 mg/dLNormal7-25The [facility] HospitalComment on above:Order Comment: << On admission If not done in ED>> No: Do not add to previous drawPerformed By: #### 24195, 44128, 08256, 77418, 80408 #### [facility] [address] [place] [address], USACalcium [Mass/Vol]8.7 mg/dLNormal8.6-10.3The [facility] HospitalComment on above:Order Comment: << On admission If not done in ED>> No: Do not add to previous drawPerformed By: #### 81002, 30087, 42165, 06991, 76089 #### [facility] [address] [place] [address], USACO2 [Moles/Vol]22 mmol/IOwcjvu30-43Ffn [facility] HospitalComment on above:Order Comment: << On admission If not done in ED>> No: Do not add to previous drawPerformed By: #### 93623, 19536, 20484, 07268, 00382 #### [facility] [address] [place] [address], USACreatinine [Mass/Vol]1.00 mg/dLNormal0.70-1.30The [facility] HospitalComment on above:Order Comment: << On admission If not done in ED>> No: Do not add to previous drawPerformed By: #### 44215, 91800, 08205, 81052, 69177 #### [facility] [address] [place] [address], USAGlucose [Mass/Vol]126 mg/xHElsb31-174Bpw [facility] HospitalComment on above:Order Comment: << On admission If not done in ED>> No: Do not add to previous drawPerformed By: #### 56046, 86644, 64114, 89184, 93325 #### [facility] [address] [place] [address], USAPotassium [Moles/Vol]4.1 mmol/LNormal3.5-5.1The [facility] HospitalComment on above:Order Comment: << On admission If not done in ED>> No: Do not add to previous drawPerformed By: #### 80998, 76728, 77284, 45805, 41224 #### [facility] [address] [place] [address], USACBC COMPLETE BLOOD COUNTon 96-77-4403Fplinrxlndq distribution width (RBC) [Ratio]13.2 %Kezeri57.5-15.0The [facility] HospitalComment on above:Order Comment: << On admission If not done in ED>> No: Do not add to previous drawPerformed By: #### 62303, 21294, 16848, 79731, 56734 #### [facility] [address] [place] [address], USAHematocrit (Bld) [Volume fraction]39.8 %Oktkgt49.0-50.0The [facility] HospitalComment on above:Order Comment: << On admission If not done in ED>> No: Do not add to previous drawPerformed By: #### 31261, 56817, 10101, 90895, 67983 #### [facility] [address] [place] [address], [facility] HOSPITALHemoglobin (Bld) [Mass/Vol]12.8 g/dLLow13.0-17.0The [facility] HospitalComment on above:Order Comment: << On admission If not done in ED>> No: Do not add to previous drawPerformed By: #### 10333, 01471, 05197, 51765, 54340 #### [facility] [address] [place] [address], [facility] (RBC) [Entitic mass]28.8 qzZcepqm76.0-33.0The [facility] HospitalComment on above:Order Comment: << On admission If not done in ED>> No: Do not add to previous drawPerformed By: #### 84537, 94022, 45680, 37843, 83211 #### [facility] [address] [place] [address], [facility] ALTUSHC (RBC) [Mass/Vol]32.2 g/gJQdhqww44.0-35.0The [facility] HospitalComment on above:Order Comment: << On admission If not done in ED>> No: Do not add to previous drawPerformed By: #### 47266, 26826, 32057, 53059, 50077 #### [facility] [address] [place] [address], USAMCV (RBC) [Entitic vol]89.4 bSOncfne26.0-98.0The [facility] HospitalComment on above:Order Comment: << On admission If not done in ED>> No: Do not add to previous drawPerformed By: #### 62735, 96945, 91041, 81185, 57441 #### [facility] [address] [place] [address], USANucleated RBC/100 WBC (Bld) [Ratio]0 %Normal0-0The [facility] HospitalComment on above:Order Comment: << On admission If not done in ED>> No: Do not add to previous drawPerformed By: #### 94148, 37531, 95931, 77753, 10601 #### [facility] [address] [place] [address], USAPLAT LTF615 10*3/dTSnb965-960Paw [facility] HospitalComment on above:Order Comment: << On admission If not done in ED>> No: Do not add to previous drawPerformed By: #### 93721, 74233, 38558, 78171, 63684 #### [facility] [address] [place] [address], [facility] HOSPITALRBC (Bld) [#/Vol]4.45 10*6/uLNormal4.20-5.70The [facility] HospitalComment on above:Order Comment: << On admission If not done in ED>> No: Do not add to previous drawPerformed By: #### 48959, 87321, 08542, 96577, 26548 #### [facility] [address] [place] [address], [facility] HOSPITALWBC (Bld) [#/Vol]18.51 10*3/uLHigh4.00-10.60The [facility] HospitalComment on above:Order Comment: << On admission If not done in ED>> No: Do not add to previous drawPerformed By: #### 52236, 86426, 87280, 56002, 53306 #### [facility] [address] [place] [address], USAErythrocyte distribution width (RBC) [Ratio]13.1 %Normal 11.5-15.0The [facility] HospitalComment on above:Order Comment: << On admission If not done in ED>> No: Do not add to previous drawPerformed By: #### 77919, 73463, 16634, 72580, 62003 #### [facility] [address] [place] [address], USAHematocrit (Bld) [Volume fraction]43.9 %Lfggcf76.0-50.0The [facility] HospitalComment on above:Order Comment: << On admission If not done in ED>> No: Do not add to previous drawPerformed By: #### 76464, 98429, 13401, 26779, 62814 #### [facility] [address] [place] [address], USAHemoglobin (Bld) [Mass/Vol]13.9 g/oGYrnnsd26.0-17.0The [facility] HospitalComment on above:Order Comment: << On admission If not done in ED>> No: Do not add to previous drawPerformed By: #### 43514, 42081, 13790, 49516, 72557 #### [facility] [address] [place] [address], [facility]OSPITALMCH (RBC) [Entitic mass]28.7 xjVjqkdp28.0-33.0The [facility] HospitalComment on above:Order Comment: << On admission If not done in ED>> No: Do not add to previous drawPerformed By: #### 51636, 14936, 10835, 87257, 37571 #### [facility] [address] [place] [address], [facility] HOSPITALMCHC (RBC) [Mass/Vol]31.7 g/dLLow32.0-35.0The [facility] HospitalComment on above:Order Comment: << On admission If not done in ED>> No: Do not add to previous drawPerformed By: #### 05627, 25040, 42215, 01779, 46689 #### [facility] [address] [place] [address], [facility]OSPITALMCV (RBC) [Entitic vol]90.5 oOKkldkf06.0-98.0The [facility] HospitalComment on above:Order Comment: << On admission If not done in ED>> No: Do not add to previous drawPerformed By: #### 64260, 80451, 93491, 61008, 28065 #### [facility] [address] [place] [address], USAPLAT PNN724 10*3/tSMyhzvy736-592Oea [facility] HospitalComment on above:Order Comment: << On admission If not done in ED>> No: Do not add to previous drawPerformed By: #### 78629, 74261, 43509, 17865, 96267 #### [facility] [address] [place] [address], [facility] HOSPITALRBC (Bld) [#/Vol]4.85 10*6/uLNormal4.20-5.70The [facility] HospitalComment on above:Order Comment: << On admission If not done in ED>> No: Do not add to previous drawPerformed By: #### 07626, 08792, 91629, 29152, 69648 #### [facility] [address] [place] [address], [facility] HOSPITALWBC (Bld) [#/Vol]19.37 10*3/uLHigh4.00-10.60The [facility] HospitalComment on above:Order Comment: << On admission If not done in ED>> No: Do not add to previous drawPerformed By: #### 87633, 37208, 99014, 22099, 20906 #### [facility] [address] [place] [address], USAHematocrit (Bld) [Volume fraction]42.3 %Lodbea11.0-50.0The [facility] HospitalComment on above:Order Comment: << On admission If not done in ED>> No: Do not add to previous drawPerformed By: #### 51227, 41061, 92608, 67150, 82613 #### [facility] [address] [address], [facility] HOSPITALHemoglobin (Bld) [Mass/Vol]14.0 g/xLJykwlq20.0-17.0The [facility] HospitalComment on above:Order Comment: << On admission If not done in ED>> No: Do not add to previous drawPerformed By: #### 46469, 74287, 32921, 28731, 67171 #### [facility] [address] [facility] [address], [facility] (RBC) [Entitic mass]29.2 jdTgwjhc58.0-33.0The [facility] HospitalComment on above:Order Comment: << On admission If not done in ED>> No: Do not add to previous drawPerformed By: #### 02483, 24278, 34509, 16330, 70024 #### [facility] [address] [facility] [address], [facility] HOSPITALMCHC (RBC) [Mass/Vol]33.1 g/nSBkmbxp50.0-35.0The [facility] HospitalComment on above:Order Comment: << On admission If not done in ED>> No: Do not add to previous drawPerformed By: #### 14199, 00560, 10084, 17309, 58853 #### [facility] [address] [place] [address], [facility] HOSPITALMCV (RBC) [Entitic vol]88.3 fVVlnsjw85.0-98.0The [facility] HospitalComment on above:Order Comment: << On admission If not done in ED>> No: Do not add to previous drawPerformed By: #### 99596, 24803, 68763, 30480, 65707 #### [facility] [address] [place] [address], USAPLAT OLI818 10*3/lIDydrkr076-496Fpn Wayne HospitalComment on above:Order Comment: << On admission If not done in ED>> No: Do not add to previous drawPerformed By: #### 88011, 00324, 19413, 56279, 98833 #### [facility] [address] [place] [address], USARBC (Bld) [#/Vol]4.79 10*6/uLNormal4.20-5.70The [facility] HospitalComment on above:Order Comment: << On admission If not done in ED>> No: Do not add to previous drawPerformed By: #### 30981, 92536, 29261, 76902, 33151 #### [facility] [address] [place] [address], USAWBC (Bld) [#/Vol]19.78 10*3/uLHigh4.00-10.60The [facility] HospitalComment on above:Order Comment: << On admission If not done in ED>> No: Do not add to previous drawPerformed By: #### 69865, 38973, 13424, 37026, 87073 #### [facility] [address] [place] [address], USACOOXIMETRYon 83-87-3990UEJS5 %NormalThe Wayne HospitalComment on above:Performed By: #### 19792, 33613, 52514, 76647, 42527 #### [facility] [address] [place] [address], USAMETHB0 %NormalThe [facility] Comment on above:Performed By: #### 03261, 76217, 99168, 12902, 13112 #### [facility] [address] [place] [address], USAOxygen saturation in Blood68.0 %Pgesfb09.0-75.0The [facility] HospitalComment on above:Performed By: #### 80569, 45605, 76853, 98339, 73199 #### [facility] [address] [place] [address], CYSUJO41.2 g/dLNormalThe [facility] Comment on above:Performed By: #### 72574, 88938, 39652, 89091, 74548 #### [facility] [address] [place] [address], USACPK-MB PROFILEon [id number] [Catalytic activity/Vol]2914 U/LCritically aimm22-725Ijn Wayne HospitalComment on above: Order Comment: << On admission If not done in ED>> No: Do not add to previous drawPerformed By: #### 85480, 19964, 55484, 08089, 76032 #### [facility] [address] [place] [address], USACK.MB [Mass/Vol]3.8 ng/mLCritically high0.0-1.9The [facility] HospitalComment on above:Order Comment: << On admission If not done in ED>> No: Do not add to previous drawResult Comment: M-CRITICAL RESULT(S) REVIEWED, CALLED TO AND READ BACK BY DAKOTAH MONTANO RN AT 0550Performed By: #### 79737, 13576, 86496, 94154, 82183 #### [facility] [address] [place] [address], USACK.MB [Mass/Vol]111.1 ng/mLHigh0.0-5.0The [facility] HospitalComment on above:Order Comment: << On admission If not done in ED>> No: Do not add to previous drawResult Comment: IF TOTAL CK <200 U/L AND: 1. CKMB IS 5-10 NG/ML----BORDERLINE 2. CKMB IS >10 NG/ML----INDICATIVE OF OK OR IF TOTAL CK >200 U/L AND CKMB INDEX >1.9----INDICATIVE OF MIPerformed By: #### 53276, 80781, 62143, 80622, 01373 #### [facility] [address] [place] [address], USALACTATE BLOODon 71-85-3516Whtvrmg [Moles/Vol]1.9 mmol/L Normal0.5-2.2The [facility] HospitalComment on above:Order Comment: << On admission If not done in ED>> No: Do not add to previous drawPerformed By: #### 16426, 95690, 40950, 37237, 56038 #### [facility] [address] [address], USALactate [Moles/Vol]3.1 mmol/LCritically high0.5-2.2The [facility] HospitalComment on above:Order Comment: << On admission If not done in ED>> No: Do not add to previous drawResult Comment: M-PREVIOUS CRITICAL RESULT Performed By: #### 92664, 51167, 23439, 20839, 75168 #### [facility] [address] [address], USALactate [Moles/Vol]2.7 mmol/LCritically high0.5-2.2The [facility] HospitalComment on above:Order Comment: << On admission If not done in ED>> No: Do not add to previous drawResult Comment: M-PREVIOUS CRITICAL RESULT Performed By: #### 91124, 31362, 74050, 09812, 91014 #### [facility] [address] [place] [address], USAMAGNESIUM BLOODon 54-10-7995Dpurzjtmz [Mass/Vol]2.1 mg/dL Normal1.9-2.7The [facility] HospitalComment on above:Order Comment: << On admission If not done in ED>> No: Do not add to previous drawPerformed By: #### 93721, 74974, 73924, 17376, 74243 #### [facility] [address] [place] [address], USAMagnesium [Mass/Vol]2.3 mg/dLNormal1.9-2.7The [facility] HospitalComment on above:Order Comment: << On admission If not done in ED>> No: Do not add to previous drawPerformed By: #### 94922, 25247, 08988, 83970, 81854 #### [facility] [address] [place] [address], USAMagnesium [Mass/Vol]2.4 mg/dLNormal1.9-2.7The [facility] HospitalComment on above:Order Comment: << On admission If not done in ED>> No: Do not add to previous drawPerformed By: #### 44234, 47139, 81069, 95938, 24603 #### [facility] [address] [place] [address], [facility] HOSPITALOperative Reporton [id number] ReportMR#: [id number] I [facility] Pt. Name: Tracie Crain Room #: [id number] Discharge Date: Birthdate: 1965 OPERATIVE REPORT DATE [...] Black MD Date Trans: 03/20/2019 02:34 A/bessie DN_JN:[id number] cc: Titus Villegas M.D. [address], [facility] [address]RgvqanUywFirelands Regional Medical CenterOperative ReportMR#: [id number] I [facility] Pt. Name: Tracie Crain Room #: [id number] Discharge Date: Birthdate: 1965 OPERATIVE REPORT DATE [...] and posteromedial papillary muscle. These were 4.0 [place] stitches and they were brought out in [...] Black MD Date Trans: 03/20/2019 02:21 A/bessie DN_JN:[id number] cc: Titus Villegas M.D. [address], [place] [address]KxretxZjnUniversity Hospitals Portage Medical Center GLUCOSE LABon [id number] [Mass/Vol]117 mg/gVQtwp66-974Wjc [facility] HospitalComment on above:Performed By: #### 94756, 62935, 02454, 85429, 58137 #### [facility] [address] [place] [address], USAGlucose [Mass/Vol]114 mg/dEKyho29-834Apq [facility] HospitalComment on above:Performed By: #### 06639, 43785, 56582, 52148, 40118 #### [facility] [address] [place] [address], USAGlucose [Mass/Vol]117 mg/sCEjtc86-267Gfj [facility] HospitalComment on above:Performed By: #### 94736, 96024, 31326, 25698, 58717 #### [facility] [address] [place] [address], USAGlucose [Mass/Vol]99 mg/xSSkltpj34-684Mxz [facility] HospitalComment on above:Performed By: #### 59821, 54429, 85846, 55065, 64158 #### [facility] [address] [place] [address], USAGlucose [Mass/Vol]125 mg/cUMuoc60-460Nxn [facility] [place] [facility] CenterComment on above:Performed By: #### 88158, 68544, 00106, 91348, 97993 #### [facility] [address] [place] [address], USAGlucose [Mass/Vol]102 mg/dBBqae97-906Fas [facility] HospitalComment on above:Performed By: #### 03229, 28596, 17076, 55185, 57743 #### [facility] [address] [place] [address], USAGlucose [Mass/Vol]97 mg/dJNkfunh30-121Zie [facility] HospitalComment on above:Performed By: #### 68275, 10446, 61646, 41352, 06476 #### [facility] [address] [place] [address], USAGlucose [Mass/Vol]102 mg/vTIbxi03-141Vvw [facility] HospitalComment on above:Performed By: #### 99261, 91438, 41665, 10445, 77877 #### [facility] [address] [place] [address], USAGlucose [Mass/Vol]124 mg/lGXtqf96-657Bao [facility] HospitalComment on above:Performed By: #### 65818, 40943, 68087, 51370, 27411 #### [facility] [address] [place] [address], USAGlucose [Mass/Vol]112 mg/uIRzlc32-411Mff [facility] HospitalComment on above:Order Comment: << On admission If not done in ED>> No: Do not add to previous drawPerformed By: #### 86096, 15904, 02364, 65046, 67145 #### [facility] [address] [place] [address], USAGlucose [Mass/Vol]129 mg/fSIuji90-114Bme [facility] HospitalComment on above:Performed By: #### 09823, 09405, 11021, 01166, 37069 #### [facility] [address] [place] [address], USAGlucose [Mass/Vol]122 mg/nNHblk14-004Kvs [facility] HospitalComment on above:Performed By: #### 55329, 17131, 89779, 21328, 89200 #### [facility] [address] [place] [address], USAGlucose [Mass/Vol]133 mg/gJPyhg12-213Bxf [facility] HospitalComment on above:Performed By: #### 69291, 21285, 81194, 17610, 94510 #### [facility] [address] [place] [address], USAGlucose [Mass/Vol]130 mg/hSUhdf90-798Zlx [facility] HospitalComment on above:Performed By: #### 47290 #### [facility] [address] [facility] [address], USAGlucose [Mass/Vol]142 mg/xXDoqw26-668Qph [facility] HospitalComment on above:Performed By: #### 36012 #### [facility] [address] [place] [address], USAPORTABLE CHEST 1 VIEWon [id number] CHEST 1 VIEW [facility] Department of Radiology [address] [place] [id number] Patient Name: TRACIE CRAIN : 1965 Sex: M Age: Race: NA Pt. Location: [id number] Patient Status: I Ordered Date: 03/20/2019 8:05:00 PM Completed Date: 03/20/2019 08:43 PM Requesting Provider: TIMBO BLACK Attending Provider: TIMBO BLACK Report Copy To: Signs & Symptoms: O2 Desaturation History: Patient history not available Comments: Check E.T. Position Exam: PORTABLE CHEST 1 VIEW PORTABLE CHEST 1 VIEW 03/20/2019 8:43 PM EDT SIGNS AND SYMPTOMS: O2 Desaturation TECHNOLOGIST COMMENTS: O2 desat. for ET placement per order QUESTION FOR THE RADIOLOGIST: Check E.T. Position PROTOCOL: AP(PA) view was obtained. COMPARISON: Chest radiograph March 20, 2019 FINDINGS: Cardiomediastinal silhouette remains unchanged. Trachea is midline. ET tube is 7 cm from the loki. Horseheads-Sher catheter with tip projecting over the pulmonary [...] findings. Electronically signed by:Yenni Osuna. Transcribed by: [id number], User Resident: ANAI ALVARADO Electronically Signed by: YENNI OSUNA @ 03/22/2019 11:07 AM I personally read this/these film(s) with this [facility] CenterComment on above:Order Comment: << On admission If not done in ED>> No: Do not add to previous drawPORTABLE CHEST 1 VIEWWayne Hospital Department of Radiology [address] [place] [phone] Patient Name: TRACIE CRAIN : 1965 Sex: M Age: Race: NA Pt. Location: [id number] Patient Status: I Ordered Date: 03/20/2019 5:00:00 AM Completed Date: 03/20/2019 06:27 AM Requesting Provider: TIMBO BLACK Attending Provider: TIMBO BLACK Report Copy To: Signs & Symptoms: Post OP History: Patient history not available Comments: R/O Atelectasis Exam: PORTABLE CHEST 1 VIEW PORTABLE CHEST 1 VIEW 03/20/2019 6:27 AM EDT SIGNS AND SYMPTOMS: Post OP TECHNOLOGIST COMMENTS: decreased oxygen saturation levels QUESTION FOR THE RADIOLOGIST: R/O Atelectasis PROTOCOL: AP(PA) view was obtained. COMPARISON: Chest radiograph March 19, 2019 FINDINGS: The mediastinal silhouette remains unchanged. Trachea is midline. ET tube is 7 cm from the loki. Horseheads-Sher catheter with tip projecting over the pulmonary [...] findings. Electronically signed by:Divya Collins. Transcribed by: [id number], User Resident: ANAI ALVARADO Electronically Signed by: DIVYA COLLINS @ 03/20/2019 11:01 AM I personally read this/these film(s) with this residentFirelands Regional Medical CenterComment on above:Order Comment: << On admission If not done in ED>> No: Do not add to previous drawPROTHROMBIN TIMEon [id number] Coag (PPP) [Relative time]1.37 {INR}High0.91-1.16[facility] Comment on above:Order Comment: << On admission If not done in ED>> No: Do not add to previous drawResult Comment: ACCCP RECOMMENDED INR FOR WARFARIN THERAPY ------- CONDITION INR PROPHYLAXIS OF VENOUS THROMBOSIS 2-3 (HIGH-RISK SURGERY) TREATMENT OF VENOUS THROMBOSIS 2-3 TREATMENT OF PULMONARY EMBOLISM 2-3 PREVENTION OF SYSTEMIC EMBOLISM: 2-3 ACUTE MYOCARDIAL INFARCTION TISSUE HEART VALVES VALVULAR HEART DISEASE ATRIAL FIBRILLATION RECURRENT SYSTEMIC EMBOLISM MECHANICAL HEART VALVE 2.5-3.5 FROM: ORAL ANTICOAGULANTS. MECHANISM OF ACTION, CLINICAL EFFECTIVENESS, AND OPTIMAL THERAPEUTIC RANGE. CHEST 1995;108:231S-246S.Performed By: #### 66451, 79015, 29409, 25216, 08812 #### [facility] [address] [place] [address], USAPT Coag (PPP) [Time]16.9 sHigh12.3-14.8The Wayne HospitalComment on above:Order Comment: << On admission If not done in ED>> No: Do not add to previous drawResult Comment: ALL RESULTS MUST BE INTERPRETED WITH RESPECT TO BLOOD DRAWING ARTIFACT OR DILUTION ERROR OF ANTICOAGULANT AT THE TIME OF SAMPLING.Performed By: #### 21215, 55151, 03275, 05889, 55508 #### [facility] [address] [place] [address], USAACTIVATED CLOTTING TIMEon [id number] CLOTTING TIME 115 [id number] [facility] HospitalComment on above: Performed By: #### 54261, 80008 #### [facility] [address] [place] [address], USAACTIVATED CLOTTING [id number] [facility] HospitalComment on above:Performed By: #### 33513, 60568 #### [facility] [address] [place] [address], USAACTIVATED CLOTTING [id number] [facility] HospitalComment on above:Performed By: #### 70819, 98895 #### [facility] [address] [place] [address], USAACTIVATED CLOTTING [id number] [facility] HospitalComment on above:Performed By: #### 82394, 59658 #### [facility] [address] [place] [address], USAACTIVATED CLOTTING [id number] [facility] HospitalComment on above:Performed By: #### 68081, 26209 #### [facility] [address] [place] [address], USAACTIVATED CLOTTING [id number] [facility] HospitalComment on above:Performed By: #### 79267, 06924 #### [facility] [address] [place] [address], USAACTIVATED CLOTTING [id number] [facility] HospitalComment on above:Performed By: #### 76832, 81367 #### [facility] [address] [place] [address], USAACTIVATED CLOTTING [id number] [facility] HospitalComment on above:Performed By: #### 91173, 67325, 89106, 46321, 23443 #### [facility] [address] [place] [address], USAACTIVATED CLOTTING [id number] [facility] HospitalComment on above:Performed By: #### 64892, 96441, 76486, 28831, 24328 #### [facility] [address] [place] [address], USAACTIVATED CLOTTING [id number] [facility] HospitalComment on above:Performed By: #### 75726, 65032, 64299, 42216, 63866 #### [facility] [address] [place] [address], USAACTIVATED CLOTTING [id number] [facility] HospitalComtr[facility] on above:Performed By: #### 40755, 88372, 97397, 16677, 86251 #### [facility] [address] [place] [address], USAACTIVATED CLOTTING [id number] [facility] HospitalComment on above:Performed By: #### 66593, 46822, 81303, 65548, 57069 #### [facility] [address] [place] [address], USAACTIVATED CLOTTING [id number] [facility] HospitalComtr[facility] on above:Performed By: #### 48960, 03636, 33264, 72977, 89964 #### [facility] [address] [place] [address], USAAPTTon [id number] Coag (Bld) [Time]28.6 sNormal 25.0-35.0The Wayne HospitalComment on above:Result Comment: ALL RESULTS MUST BE INTERPRETED WITH RESPECT TO BLOOD DRAWING ARTIFACT OR DILUTION ERROR OF ANTICOAGULANT AT THE TIME OF SAMPLING. THE APTT SHOULD NOT BE USED TO MONITOR UNFRACTIONATED HEPARIN THERAPY, THIS LABORATORY NO LONGER HAS AN ESTABLISHED THERAPEUTIC RANGE BASED ON THE APTT. IT IS RECOMMENDED THAT THE UFH - HEPARIN ASSAY (ANTI-XA ACTIVITY) BE USED FOR THIS PURPOSE.Performed By: #### 50701, 86905 #### [facility] [address] [place] [address], USAaPTT Coag (Bld) [Time]33.6 iAijjss17.0-35.0The Wayne HospitalComment on above:Order Comment: If not done in ED No: Do not add to previous drawResult Comment: ALL RESULTS MUST BE INTERPRETED WITH RESPECT TO BLOOD DRAWING ARTIFACT OR DILUTION ERROR OF ANTICOAGULANT AT THE TIME OF SAMPLING. THE APTT SHOULD NOT BE USED TO MONITOR UNFRACTIONATED HEPARIN THERAPY, THIS LABORATORY NO LONGER HAS AN ESTABLISHED THERAPEUTIC RANGE BASED ON THE APTT. IT IS RECOMMENDED THAT THE UFH - HEPARIN ASSAY (ANTI-XA ACTIVITY) BE USED FOR THIS PURPOSE.Performed By: #### 73620, 37338, 66215, 92457, 67639 #### [facility] [address] [address], USAARTERIAL BLOOD GAS W/COOXon [id number] EXCESS-8 mmol/L Low-2-3The Wayne HospitalComment on above:Performed By: #### 10145, 77711 ####[facility] [place] [address], USACOHB2.6 %High0.0-1.5The Wayne HospitalComment on above:Performed By: #### 45627, 63960 ####[facility] [place] [address], USADELIVERY SYSTEMSVENTNormal The Wayne HospitalComment on above:Performed By: #### 59901, 18259 ####[facility] [place] [address], TNMRXI6919 %NormalThe Wayne HospitalComment on above:Performed By: #### 02587, 47851 ####[facility] [place] [address], USAHCO3 (Bld) [Moles/Vol]19 mmol/LLow 21-28The Wayne HospitalComment on above:Performed By: #### 25041, 89946 ####[facility] [facility] [address], USAMETHB0.8 %Normal0.0-1.5The [facility] Comment on above:Performed By: #### 71132, 27188 ####[facility] [address], USAMIN IRYKLW46.6NormSelect Medical Specialty Hospital - Trumbulle Wayne HospitalComment on above:Performed By: #### 94300, 75562 ####[facility] [place] [address], USAMODALITYACNoBethesda North HospitalComment on above:Performed By: #### 38558, 14581 ####[facility] [place] [address], USAOxygen (Bld) [Partial pressure]61 mm[Hg]Vkk69-117Nka [facility] HospitalComment on above:Performed By: #### 18832, 20246 ####[facility] [address], USAOxygen saturation in Blood88.9 %Low94.0-97.0The Wayne HospitalComment on above:Performed By: #### 85257, 32576 ####[facility] [place] [address], XFFJHE958 abCdRxmylz40-79Vnn [facility] HospitalComment on above:Performed By: #### 80772, 60287 ####[facility] [place] [address], TNBGNCJ61.0 CTC65IjwpyvYyuKettering HealthComment on above:Performed By: #### 80397, 51755 ####[facility] [place] [address], [place] pH (Bld)7.26 [pH]Low7.35-7.45The Wayne HospitalComment on above:Result Comment: PLEASE NOTE: Effective 12/02/18, reference ranges for Respiratory GEM analyzers running arterial blood have been updated to reflect the vault manager's published reference ranges.Performed By: #### 78158, 78324 ####[facility] [place] [address], [facility] THB14.2 g/fZIvnjab05.0-16.3The Wayne HospitalComment on above:Performed By: #### 85805, 49210 ####[facility] [place] [address], USATIDAL VOLUME (VT) CC700 ccNormal The Wayne HospitalComment on above:Performed By: #### 67399, 45037 ####[facility] [place] [address], [facility] GENERAL HOSPITALARTERIAL BLOOD GAS WITH ICAon [id number] EXCESS-4 mmol/LLow-2-3 The Wayne HospitalComment on above:Performed By: #### 61055 #### [facility] [address] [place] [address], USADELIVERY SYSTEMSMVNoalThKettering HealthComment on above:Performed By: #### 82100 #### [facility] [address] [place] [address], UWKOUV2971 %NormalThe [facility] Hospital Comment on above:Performed By: #### 18823 #### [facility] [address] [place] [address], USAHCO3 (Bld) [Moles/Vol]20 mmol/HNeq42-22Lnu [facility] HospitalComment on above:Performed By: #### 64446 #### [facility] [address] [place] [address], USAIONIZED CALCIUM1.21 mmol/LNormal1.13-1.32The Wayne HospitalComment on above:Performed By: #### 29195 #### [facility] [address] [place] [address], USAMIN JEYDZE04.6NoBethesda North Hospital Comment on above:Performed By: #### 99530 #### [facility] [address] [place] [address], USAMODALITYACNoBethesda North Hospital Comment on above:Performed By: #### 45540 #### [facility] [address] [place] [address], USAOxygen (Bld) [Partial pressure]74 mm[Hg]Pjn90-299Shh Wayne HospitalComment on above:Performed By: #### 48307 #### [facility] [address] [place] [address], USAOxygen saturation in Blood93.5 %Low94.0-97.0The Wayne HospitalComment on above:Performed By: #### 67083 #### [facility] [address] [place] [address], AJDZBT275 vkWjUai59-57Bey [facility] Comment on above:Performed By: #### 96724 #### [facility] [address] [place] [address], IKMDMVY21.0 LAF87VyszsfSyjBethesda North Hospital Comment on above:Performed By: #### 44518 #### [facility] [address] [place] [address], USAPF RATIO74 mmHgNoBethesda North HospitalComment on above:Performed By: #### 95632 #### [facility] [address] [place] [address], USApH (Bld)7.39 [pH]Normal7.35-7.45The Wayne HospitalComment on above:Result Comment: PLEASE NOTE: Effective 12/02/18, reference ranges for Respiratory GEM analyzers running arterial blood have been updated to reflect the vault manager's published reference ranges.Performed By: #### 79676 #### [facility] [address] [place] [address], USATIDAL VOLUME (VT) CC700 ccNormalThe Wayne HospitalComment on above:Performed By: #### 35329 #### [facility] [address] [place] [address], USABASE EXCESS-7 mmol/LLow-2-3The Wayne HospitalComment on above:Order Comment: R/O Pulmonary EdemaPerformed By: #### 42981, 01010 ####[facility] [place] [address], USADELIVERY SYSTEMSMVNoBethesda North Hospital Comment on above:Order Comment: R/O Pulmonary EdemaPerformed By: #### 90438, 27358 ####[facility] [place] [address], LIOAOF0995 %NormalThe Wayne HospitalComment on above:Order Comment: R/O Pulmonary EdemaPerformed By: #### 96174, 31993 ####[facility] [place] [address], [place] HCO3 (Bld) [Moles/Vol]21 mmol/XKsyhrk69-28Oqx [facility] HospitalComment on above:Order Comment: R/O Pulmonary EdemaPerformed By: #### 49836, 60621 ####[facility] [place] [address], [facility] COUNTY GENERAL HOSPITALIONIZED CALCIUM1.36 mmol/LHigh1.13-1.32The Wayne HospitalComment on above:Order Comment: R/O Pulmonary EdemaPerformed By: #### 51988, 11718 ####[facility] [place] [address], [facility] HOSPITALMIN GVFXPO31.0NoBethesda North HospitalComment on above:Order Comment: R/O Pulmonary EdemaPerformed By: #### 46098, 09905 ####[facility] [place] [address], [facility] HOSPITALMODALITYSIMVNoBethesda North HospitalComment on above:Order Comment: R/O Pulmonary EdemaPerformed By: #### 60704, 69071 ####[facility] [place] [address], [facility] Oxygen (Bld) [Partial pressure]63 mm[Hg]Ifj80-089Iei [facility] HospitalComment on above:Order Comment: R/O Pulmonary EdemaPerformed By: #### 39410, 83567 ####[facility] [place] [address], [facility] GENERAL HOSPITALOxygen saturation in Blood89.3 %Low94.0-97.0The Wayne HospitalComment on above:Order Comment: R/O Pulmonary EdemaPerformed By: #### 62073, 37344 ####[facility] [place] [address], SMVUJJ248 wxZzKsgy52-04Dhd Wayne HospitalComment on above:Order Comment: R/O Pulmonary Edema Performed By: #### 80201, 02288 ####[facility] [place] [address], USAPEEP8.0 CEM91TgoingFthBethesda North HospitalComment on above:Order Comment: R/O Pulmonary EdemaPerformed By: #### 11588, 12594 ####[facility] [place] [address], USAPF RATIO63 mmHgNoBethesda North HospitalComment on above:Order Comment: R/O Pulmonary EdemaPerformed By: #### 39215, 21942 ####[facility] [place] [address], USApH (Bld)7.26 [pH]Low7.35-7.45The Wayne HospitalComment on above:Order Comment: R/O Pulmonary EdemaResult Comment: PLEASE NOTE: Effective 12/02/18, reference ranges for Respiratory GEM analyzers running arterial blood have been updated to reflect the vault manager's published reference ranges.Performed By: #### 10294, 00937 ####[facility] [place] [address], [place] PRESSURE QRSOXCS6KftrspTvjBethesda North HospitalComment on above: Order Comment: R/O Pulmonary EdemaPerformed By: #### 68597, 42639 ####[facility] [place] [address], USATIDAL VOLUME (VT) CC600 ccNormalThe Wayne HospitalComment on above:Order Comment: R/O Pulmonary EdemaPerformed By: #### 85921, 16079 ####[facility] [place] [address], USABASIC METABOLIC PANELon 16-26-3272Gaynfgt [Mass/Vol]8.6 mg/dLNormal8.6-10.3The Wayne HospitalComment on above:Order Comment: No: Do not add to previous drawPerformed By: #### 85224 #### [facility] [address] [place] [address], USAChloride [Moles/Vol]113 mmol/MDoxv95-667Oxf [facility] HospitalComment on above:Order Comment: No: Do not add to previous drawPerformed By: #### 85586 #### [facility] [address] [place] [address], USACO2 [Moles/Vol]21 mmol/VHuqqjf00-52Ntv [facility] HospitalComment on above:Order Comment: No: Do not add to previous draw Performed By: #### 27661 #### [facility] [address] [place] [address], USACreatinine [Mass/Vol]1.14 mg/dLNormal0.70-1.30The Wayne HospitalComment on above:Order Comment: No: Do not add to previous drawPerformed By: #### 72361 #### [facility] [address] [place] [address], USAGFR/1.73 sq M predicted among blacks MDRD (S/P/Bld) [Vol rate/Area]mL/min/{1.73_m2}Normal>60The [facility] Comment on above:Order Comment: No: Do not add to previous drawPerformed By: #### 17574 #### [facility] [address] [place] [address], USAGFR/1.73 sq M predicted among non-blacks MDRD (S/P/Bld) [Vol rate/Area]mL/min/{1.73_m2}Normal>60The [facility] Comment on above:Order Comment: No: Do not add to previous drawPerformed By: #### 55281 #### [facility] [address] [place] [address], USAGlucose [Mass/Vol]164 mg/zIHzym26-208Yiw [facility] HospitalComment on above:Order Comment: No: Do not add to previous drawPerformed By: #### 31166 #### [facility] [address] [place] [address], USAPotassium [Moles/Vol]4.3 mmol/LNormal3.5-5.1The Wayne HospitalComment on above:Order Comment: No: Do not add to previous drawPerformed By: #### 78037 #### [facility] [address] [place] [address], USASodium [Moles/Vol]142 mmol/FQaatsb828-871Yez [facility] HospitalComment on above:Order Comment: No: Do not add to previous drawPerformed By: #### 21140 #### [facility] [address] [place] [address], USAUrea nitrogen [Mass/Vol]19 mg/dLNormal7-25The [facility] HospitalComment on above:Order Comment: No: Do not add to previous drawPerformed By: #### 14563 #### [facility] [address] [place] [address], USACalcium [Mass/Vol]9.8 mg/dLNormal8.6-10.3The [facility] HospitalComment on above:Order Comment: If not done in ED No: Do not add to previous drawPerformed By: #### 15803, 43874 #### [facility] [address] [place] [address], USAChloride [Moles/Vol]112 mmol/OJhjg14-822Qnv [facility] HospitalComment on above:Order Comment: If not done in ED No: Do not add to previous drawPerformed By: #### 30937, 45151 #### [facility] [address] [place] [address], USACO2 [Moles/Vol]21 mmol/NEefopx94-10Odb [facility] HospitalComment on above:Order Comment: If not done in ED No: Do not add to previous drawPerformed By: #### 42269, 28914 #### [facility] [address] [place] [address], USACreatinine [Mass/Vol]1.07 mg/dLNormal0.70-1.30The Wayne HospitalComment on above:Order Comment: If not done in ED No: Do not add to previous drawPerformed By: #### 42406, 97037 #### [facility] [address] [place] [address], USAGFR/1.73 sq M predicted among blacks MDRD (S/P/Bld) [Vol rate/Area]mL/min/{1.73_m2}Normal>60The [facility] Comment on above:Order Comment: If not done in ED No: Do not add to previous drawPerformed By: #### 51221, 15468 #### [facility] [address] [place] [address], USAGFR/1.73 sq M predicted among non-blacks MDRD (S/P/Bld) [Vol rate/Area]mL/min/{1.73_m2}Normal>60The [facility] Comment on above:Order Comment: If not done in ED No: Do not add to previous drawPerformed By: #### 38548, 50909 #### [facility] [address] [place] [address], USAGlucose [Mass/Vol]147 mg/hUUbzn77-299Qpz [facility] HospitalComment on above:Order Comment: If not done in ED No: Do not add to previous drawPerformed By: #### 76517, 78743 #### [facility] [address] [place] [address], USAPotassium [Moles/Vol]3.9 mmol/LNormal3.5-5.1The Wayne HospitalComment on above:Order Comment: If not done in ED No: Do not add to previous drawPerformed By: #### 29453, 71114 #### [facility] [address] [place] [address], USASodium [Moles/Vol]142 mmol/KHigdjl744-840Wna [facility] HospitalComment on above:Order Comment: If not done in ED No: Do not add to previous drawPerformed By: #### 71297, 38126 #### [facility] [address] [place] [address], USAUrea nitrogen [Mass/Vol]19 mg/dLNormal7-25The [facility] HospitalComment on above:Order Comment: If not done in ED No: Do not add to previous drawPerformed By: #### 68563, 68580 #### [facility] [address] [place] [address], USACalcium [Mass/Vol]9.5 mg/dLNormal8.6-10.3The Wayne HospitalComment on above:Order Comment: If not done in ED No: Do not add to previous drawPerformed By: #### 27263, 02514, 32883, 48044, 09611 #### [facility] [address] [place] [address], USAChloride [Moles/Vol]105 mmol/JEaozuf35-325Luw [facility] HospitalComment on above:Order Comment: If not done in ED No: Do not add to previous drawPerformed By: #### 38888, 75187, 57213, 78024, 33668 #### [facility] [address] [place] [address], USACO2 [Moles/Vol]24 mmol/AGwhkae13-02Jot [facility] HospitalComment on above:Order Comment: If not done in ED No: Do not add to previous drawPerformed By: #### 19817, 69436, 43155, 30487, 89851 #### [facility] [address] [place] [address], USACreatinine [Mass/Vol]1.11 mg/dLNormal0.70-1.30The [facility] HospitalComment on above:Order Comment: If not done in ED No: Do not add to previous drawPerformed By: #### 21786, 78730, 15651, 33318, 80094 #### [facility] [address] [place] [address], USAGFR/1.73 sq M predicted among blacks MDRD (S/P/Bld) [Vol rate/Area]mL/min/{1.73_m2}Normal>60The [facility] Comment on above:Order Comment: If not done in ED No: Do not add to previous drawPerformed By: #### 19326, 03528, 52733, 93648, 81428 #### [facility] [address] [place] [address], USAGFR/1.73 sq M predicted among non-blacks MDRD (S/P/Bld) [Vol rate/Area]mL/min/{1.73_m2}Normal>60The [facility] Comment on above:Order Comment: If not done in ED No: Do not add to previous drawPerformed By: #### 81410, 01803, 86758, 31232, 71378 #### [facility] [address] [place] [address], USAGlucose [Mass/Vol]89 mg/sPCvstsi99-925Zav [facility] HospitalComment on above:Order Comment: If not done in ED No: Do not add to previous drawPerformed By: #### 59811, 12768, 67369, 72463, 21044 #### [facility] [address] [place] [address], USAPotassium [Moles/Vol]4.2 mmol/LNormal3.5-5.1The Wayne HospitalComment on above:Order Comment: If not done in ED No: Do not add to previous drawPerformed By: #### 89866, 44080, 39771, 74478, 38493 #### [facility] [address] [place] [address], USASodium [Moles/Vol]135 mmol/ELxo376-236Zuj [facility] HospitalComment on above:Order Comment: If not done in ED No: Do not add to previous drawPerformed By: #### 16831, 14977, 09145, 11809, 19369 #### [facility] [address] [place] [address], USAUrea nitrogen [Mass/Vol]17 mg/dLNormal7-25The [facility] HospitalComment on above:Order Comment: If not done in ED No: Do not add to previous drawPerformed By: #### 03601, 28409, 72725, 63872, 05797 #### [facility] [address] [place] [address], USACBC COMPLETE BLOOD COUNTon 38-07-6468Sfqkpzjqrmm distribution width (RBC) [Ratio]13.0 %Spkmts35.5-15.0The Wayne HospitalComment on above:Order Comment: No: Do not add to previous draw Performed By: #### 92014 #### [facility] [address] [place] [address], USAHematocrit (Bld) [Volume fraction]42.7 %Ajqpeb65.0-50.0The Wayne HospitalComment on above:Order Comment: No: Do not add to previous drawPerformed By: #### 27447 #### [facility] [address] [place] [address], USAHemoglobin (Bld) [Mass/Vol]14.3 g/zEJmccdi24.0-17.0The Wayne HospitalComment on above:Order Comment: No: Do not add to previous drawPerformed By: #### [id number] #### [facility] [address] [place] [address], [place]AMCH (RBC) [Entitic mass]29.4 lfRxnkow14.0-33.0The Wayne HospitalComment on above:Order Comment: No: Do not add to previous drawPerformed By: #### [id number] #### [facility] [address] [place] [address], [facility]ITALMCHC (RBC) [Mass/Vol]33.5 g/nXTqyfyl57.0-35.0The Wayne HospitalComment on above:Order Comment: No: Do not add to previous drawPerformed By: #### [id number] #### [facility] [address] [place] [address], [facility]USV (RBC) [Entitic vol]87.9 iEPudvfz49.0-98.0The Wayne HospitalComment on above:Order Comment: No: Do not add to previous drawPerformed By: #### [id number] #### [facility] [address] [place] [address], USANucleated RBC/100 WBC (Bld) [Ratio]0 %Normal0-0The Wayne HospitalComment on above:Order Comment: No: Do not add to previous drawPerformed By: #### [id number] #### [facility] [address] [place] [address], [place]APLAT [id number] 10*3/[id number] Wayne HospitalComment on above:Order Comment: No: Do not add to previous draw Performed By: #### [id number] #### [facility] [address] [place] [address], USARBC (Bld) [#/Vol]4.86 10*6/uLNormal4.20-5.70The Wayne HospitalComment on above:Order Comment: No: Do not add to previous drawPerformed By: #### 40412 #### [facility] [address] [place] [address], USAWBC (Bld) [#/Vol]26.36 10*3/uLHigh4.00-10.60The Wayne HospitalComment on above:Order Comment: No: Do not add to previous drawPerformed By: #### 40036 #### [facility] [address] [place] [address], USAErythrocyte distribution width (RBC) [Ratio]13.0 %Normal 11.5-15.0The Wayne HospitalComment on above:Order Comment: R/O Pulmonary EdemaPerformed By: #### 11509 ####[facility] [place] [address], [facility] HOSPITALHematocrit (Bld) [Volume fraction] 47.1 %Ndbayw55.0-50.0The Wayne HospitalComment on above: Order Comment: R/O Pulmonary EdemaPerformed By: #### 73714 ####[facility] [place] [address], [facility] HOSPITALHemoglobin (Bld) [Mass/Vol]15.0 g/aQLlixwp17.0-17.0The Wayne HospitalComment on above:Order Comment: R/O Pulmonary EdemaPerformed By: #### 22662 ####[facility] [place] [address], [facility] MCH (RBC) [Entitic mass]29.4 acNkegnw50.0-33.0The Wayne HospitalComment on above:Order Comment: R/O Pulmonary EdemaPerformed By: #### 98934 ####[facility] [place] [address], [facility] HOSPITALMCHC (RBC) [Mass/Vol]31.8 g/dLLow32.0-35.0The Wayne HospitalComment on above:Order Comment: R/O Pulmonary EdemaPerformed By: #### 01740 ####[facility] [place] [address], USAMCV (RBC) [Entitic vol]92.4 kBMpoosx34.0-98.0The Wayne HospitalComment on above:Order Comment: R/O Pulmonary EdemaPerformed By: #### 29534 ####[facility] [place] [address], USANucleated RBC/100 WBC (Bld) [Ratio]0 %Normal0-0The Wayne HospitalComment on above:Order Comment: R/O Pulmonary Edema Performed By: #### 12055 ####[facility] [address], USAPLAT [id number] 10*3/kYVykpwy672-740Eco Wayne HospitalComment on above:Order Comment: R/O Pulmonary Edema Performed By: #### 76393 ####[facility] [place] [address], USARBC (Bld) [#/Vol]5.10 10*6/uLNormal4.20-5.70The Wayne HospitalComment on above:Order Comment: R/O Pulmonary EdemaPerformed By: #### 19180 ####[facility] [place] [address], [facility] HOSPITALWBC (Bld) [#/Vol]31.20 10*3/uLHigh4.00-10.60 The Wayne HospitalComment on above:Order Comment: R/O Pulmonary EdemaPerformed By: #### 70628 ####[facility] [place] [address], USAErythrocyte distribution width (RBC) [Ratio]13.0 %Yhoqxo75.5-15.0The Wayne HospitalComment on above:Order Comment: If not done in ED No: Do not add to previous drawPerformed By: #### 43984, 16762 #### [facility] [address] [place] [address], USAHematocrit (Bld) [Volume fraction]44.2 %Tdhlet59.0-50.0The Wayne HospitalComment on above:Order Comment: If not done in ED No: Do not add to previous drawPerformed By: #### 85078, 21543 #### [facility] [address] [place] [address], USAHemoglobin (Bld) [Mass/Vol]14.4 g/oQCseklz62.0-17.0The Wayne HospitalComment on above:Order Comment: If not done in ED No: Do not add to previous drawPerformed By: #### 10593, 28015 #### [facility] [address] [place] [address], [facility] (RBC) [Entitic mass]28.8 ekSsdsce22.0-33.0The Wayne HospitalComment on above:Order Comment: If not done in ED No: Do not add to previous drawPerformed By: #### 08824, 62637 #### [facility] [address] [address], [facility] HOSPITALMCHC (RBC) [Mass/Vol]32.6 g/wXGexeos36.0-35.0The Wayne HospitalComment on above:Order Comment: If not done in ED No: Do not add to previous drawPerformed By: #### 45967, 27421 #### [facility] [address] [place] [address], [facility] HOSPITALMCV (RBC) [Entitic vol]88.4 pEAbtxbw24.0-98.0The Wayne HospitalComment on above:Order Comment: If not done in ED No: Do not add to previous drawPerformed By: #### 75175, 67506 #### [facility] [address] [place] [address], USANucleated RBC/100 WBC (Bld) [Ratio]0 %Normal0-0The Wayne HospitalComment on above:Order Comment: If not done in ED No: Do not add to previous drawPerformed By: #### 84599, 42447 #### [facility] [address] [place] [address], USAPLAT ZAS313 10*3/iJMuwmpw258-028Kcx Wayne HospitalComment on above:Order Comment: If not done in ED No: Do not add to previous drawPerformed By: #### 33707, 64029 #### [facility] [address] [place] [address], USARBC (Bld) [#/Vol]5.00 10*6/uLNormal4.20-5.70The Wayne HospitalComment on above:Order Comment: If not done in ED No: Do not add to previous drawPerformed By: #### 70254, 97278 #### [facility] [address] [place] [address], USAWBC (Bld) [#/Vol]33.13 10*3/uLHigh4.00-10.60The Wayne HospitalComment on above:Order Comment: If not done in ED No: Do not add to previous drawPerformed By: #### 93232, 68654 #### [facility] [address] [place] [address], USAErythrocyte distribution width (RBC) [Ratio]13.0 %Normal 11.5-15.0The Wayne HospitalComment on above:Order Comment: If not done in ED No: Do not add to previous drawPerformed By: #### 69147, 37996, 31824, 11254, 76002 #### [facility] [address] [place] [address], USAHematocrit (Bld) [Volume fraction]55.7 %High39.0-50.0The Wayne HospitalComment on above:Order Comment: If not done in ED No: Do not add to previous drawPerformed By: #### 30436, 50051, 49752, 50681, 49011 #### [facility] [address] [place] [address], [facility] HOSPITALHemoglobin (Bld) [Mass/Vol]18.2 g/eROqpf54.0-17.0The Wayne HospitalComment on above:Order Comment: If not done in ED No: Do not add to previous drawPerformed By: #### 86602, 08915, 38135, 49339, 71665 #### [facility] [address] [place] [address], [facility] (RBC) [Entitic mass]28.6 ygJldmhm21.0-33.0The Wayne HospitalComment on above:Order Comment: If not done in ED No: Do not add to previous drawPerformed By: #### 24383, 73199, 75149, 24772, 09791 #### [facility] [address] [place] [address], [facility] ALTUSHC (RBC) [Mass/Vol]32.7 g/xLDhekys49.0-35.0The Wayne HospitalComment on above:Order Comment: If not done in ED No: Do not add to previous drawPerformed By: #### 03503, 54685, 27598, 27803, 17300 #### [facility] [address] [place] [address], [facility] ALTUSV (RBC) [Entitic vol]87.4 cVZotbrd69.0-98.0The Wayne HospitalComment on above:Order Comment: If not done in ED No: Do not add to previous drawPerformed By: #### 62957, 74081, 35150, 62656, 91293 #### [facility] [address] [place] [address], USANucleated RBC/100 WBC (Bld) [Ratio]0 %Normal0-0The Wayne HospitalComment on above:Order Comment: If not done in ED No: Do not add to previous drawPerformed By: #### 38385, 79164, 33701, 24521, 67206 #### [facility] [address] [place] [address], USAPLAT EMC260 10*3/nIZrpsmw292-020Pzl Wayne HospitalComment on above:Order Comment: If not done in ED No: Do not add to previous drawPerformed By: #### 95842, 61954, 78968, 13874, 71722 #### [facility] [address] [place] [address], [facility] HOSPITALRBC (Bld) [#/Vol]6.37 10*6/uLHigh4.20-5.70The Wayne HospitalComment on above:Order Comment: If not done in ED No: Do not add to previous drawPerformed By: #### 33264, 56625, 39130, 24284, 70166 #### [facility] [address] [place] [address], USAWBC (Bld) [#/Vol]11.26 10*3/uLHigh4.00-10.60The Wayne HospitalComment on above:Order Comment: If not done in ED No: Do not add to previous drawPerformed By: #### 74658, 04829, 76109, 47326, 88279 #### [facility] [address] [place] [address], [facility] HOSPITALCOMP METABOLIC PANELon [id number] [Mass/Vol]3.8 g/dL Normal3.5-5.7The Wayne HospitalComment on above:Order Comment: R/O Pulmonary EdemaPerformed By: #### 14846, 15688, 40779 ####[facility] [place] [address], [place] ALKALINE GLSFNC15 IU/ROir32-150Obl Wayne HospitalComment on above:Order Comment: R/O Pulmonary EdemaPerformed By: #### 26135, 11687, 36294 ####[facility] [place] [address], [place] ALT [Catalytic activity/Vol]37 U/LNormal7-52The Wayne HospitalComment on above:Order Comment: R/O Pulmonary EdemaPerformed By: #### 62237, 59819, 48047 ####[facility] [place] [address], USAAST [Catalytic activity/Vol]154 U/LJrzy13-96Urg Wayne HospitalComment on above:Order Comment: R/O Pulmonary EdemaPerformed By: #### 25763, 98382, 32096 ####[facility] [place] [address], USABilirubin [Mass/Vol]1.9 mg/dLHigh 0.3-1.0The Wayne HospitalComment on above:Order Comment: R/O Pulmonary EdemaPerformed By: #### 79063, 24305, 49361 ####[facility] [place] [address], USACalcium [Mass/Vol] 8.9 mg/dLNormal8.6-10.3The Wayne HospitalComment on above: Order Comment: R/O Pulmonary EdemaPerformed By: #### 31602, 52606, 97158 ####[facility] [place] [address], [place] Chloride [Moles/Vol]113 mmol/OUyrh51-580Zuu [facility] Comment on above:Order Comment: R/O Pulmonary EdemaPerformed By: #### 10348, 99100, 88413 ####[facility] [place] [address], USACO2 [Moles/Vol]13 mmol/LCritically ypr44-44Zsq Wayne HospitalComment on above:Order Comment: R/O Pulmonary EdemaResult Comment: M-CRITICAL RESULT(S) REVIEWED, CALLED TO AND READ BACK BY RN THU GUINTA @1940 03.19.19Performed By: #### 14422, 77994, 44368 ####[facility] [place] [address], [facility] HOSPITALCreatinine [Mass/Vol]1.11 mg/dLNormal0.70-1.30The Wayne HospitalComment on above: Order Comment: R/O Pulmonary EdemaPerformed By: #### 85211, 22568, 73273 ####[facility] [place] [address], [facility] GFR/1.73 sq M predicted among blacks MDRD (S/P/Bld) [Vol rate/Area] mL/min/{1.73_m2}Normal>60The Wayne HospitalComment on above:Order Comment: R/O Pulmonary EdemaPerformed By: #### 70141, , 00794 ####[facility] [place] [address], [facility] GFR/1.73 sq M predicted among non-blacks MDRD (S/P/Bld) [Vol rate/Area] mL/min/{1.73_m2}Normal>60The Wayne HospitalComment on above:Order Comment: R/O Pulmonary EdemaPerformed By: #### 78026, , 54597 ####[facility] [place] [address], [facility] Glucose [Mass/Vol]132 mg/wCIiqo34-219Ays [facility] Comment on above:Order Comment: R/O Pulmonary EdemaPerformed By: #### 39524, 72538, 45099 ####[facility] [place] [address], [facility] HOSPITALPotassium [Moles/Vol]4.4 mmol/LNormal3.5-5.1The Wayne HospitalComment on above:Order Comment: R/O Pulmonary Edema Performed By: #### 55539, 17942, 80002 ####[facility] [place] [address], USAProtein [Mass/Vol]5.6 g/dLLow 6.0-8.3The Wayne HospitalComment on above:Order Comment: R/O Pulmonary EdemaPerformed By: #### 43754, 02929, 12630 ####[facility] [place] [address], USASodium [Moles/Vol] 140 mmol/TTcxmia344-873Nrh Wayne HospitalComment on above: Order Comment: R/O Pulmonary EdemaPerformed By: #### 43555, 26547, 52807 ####[facility] [place] [address], [place] Urea nitrogen [Mass/Vol]18 mg/dLNormal7-25The Wayne HospitalComment on above:Order Comment: R/O Pulmonary EdemaPerformed By: #### 71935, 55858, 98520 ####[facility] [place] [address], USACOOXIMETRYon 51-96-7913KOWZ0 %NormalThe Wayne HospitalComment on above:Order Comment: No: Do not add to previous drawPerformed By: #### 66849 #### [facility] [address] [place] [address], USAMETHB1 %NormalThe [facility] Comment on above:Order Comment: No: Do not add to previous drawPerformed By: #### 46837 #### [facility] [address] [place] [address], USAOxygen saturation in Blood66.9 %Cnllcr90.0-75.0The Wayne HospitalComment on above:Order Comment: No: Do not add to previous drawPerformed By: #### 57366 #### [facility] [address] [place] [address], ENBUJF27.1 g/dLNormMount St. [facility] Comment on above:Order Comment: No: Do not add to previous drawPerformed By: #### 07812 #### [facility] [address] [place] [address], USACOHB2 %NormalThe Wayne HospitalComment on above:Performed By: #### 09616 ####[facility] [place] [address], USAMETHB1 %NormalThe Wayne HospitalComment on above:Performed By: #### 76416 ####[facility] [place] [address], USAOxygen saturation in Blood59.2 %Low65.0-75.0The Wayne HospitalComment on above: Performed By: #### 89260 ####[facility] [place] [address], FRIYRX73.0 g/dLNormalThe Wayne HospitalComment on above:Performed By: #### 49090 ####[facility] [place] [address], USALACTATE BLOODon 09-34-3435Gthxktr [Moles/Vol]2.6 mmol/LCritically high0.5-2.2The Wayne HospitalComment on above:Order Comment: No: Do not add to previous drawResult Comment: M-CRITICAL RESULT(S) REVIEWED, CALLED TO AND READ BACK BY PEDRO MONTANO @2136 03.19.19Performed By: #### 54904 #### [facility] [address] [place] [address], USAMAGNESIUM BLOODon 50-15-1591Woalsjuzi [Mass/Vol]2.4 mg/dL Normal1.9-2.7The Wayne HospitalComment on above:Order Comment: No: Do not add to previous drawPerformed By: #### 51686 #### [facility] [address] [place] [place] [address], USAMagnesium [Mass/Vol]2.7 mg/dLNormal1.9-2.7The Wayne HospitalComment on above:Order Comment: R/O Pulmonary Edema Performed By: #### 41362, 72964, 91522 ####[facility] [place] [address], USAMagnesium [Mass/Vol]2.9 mg/dLHigh 1.9-2.7The Wayne HospitalComment on above:Performed By: #### 39395, 04106 #### [facility] [address] [place] [address], USAPERFUSION BLOOD PANELon 62-24-0340CIXE EXCESS-4.0 mmol/LLow -2.0-3.0The Wayne HospitalComment on above:Performed By: #### 72266, 31363 #### [facility] [address] [place] [address], USAGlucose [Mass/Vol]143 mg/xVLrcd78-448Jxp Wayne HospitalComment on above:Performed By: #### 16979, 50361 #### [facility] [address] [place] [address], USAHematocrit (Bld) [Volume fraction]39 %Dlkxek75-11Huj [facility] HospitalComment on above:Performed By: #### 54828, 98335 #### [facility] [address] [place] [address], USAHemoglobin (Bld) [Mass/Vol]13.3 g/jQYiizef14.0-17.0The Wayne HospitalComment on above:Performed By: #### 45509, 06928 #### [facility] [address] [place] [address], USAIONIZED CALCIUM1.58 mmol/LCritically high1.12-1.32The Wayne HospitalComment on above:Performed By: #### 83748, 07317 #### [facility] [address] [place] [address], USAOxygen (Bld) [Partial pressure]59.0 mm[Hg]Low80.0-105.0The Wayne HospitalComment on above:Performed By: #### 17026, 35616 #### [facility] [address] [place] [address], DJEUOL899.4 wdFvUmzduu91.0-45.0The Wayne HospitalComment on above:Performed By: #### 81745, 56143 #### [facility] [address] [place] [address], USApH (Bld)7.37 [pH]Normal7.35-7.45The Wayne HospitalComment on above:Performed By: #### 57454, 17001 #### [facility] [address] [place] [address], USAPotassium [Moles/Vol]3.7 mmol/LNormal3.5-4.9The Wayne HospitalComment on above:Performed By: #### 30835, 13844 #### [facility] [address] [place] [address], USASodium [Moles/Vol]144 mmol/AKcxaey404-243Krt Wayne HospitalComment on above:Performed By: #### 29391, 05778 #### [facility] [address] [place] [address], USABASE EXCESS-5.0 mmol/LLow-2.0-3.0The Wayne HospitalComment on above:Performed By: #### 67471, 20442 #### [facility] [address] [place] [address], USAGlucose [Mass/Vol]158 mg/lVTfcp24-028Emy Wayne HospitalComment on above:Performed By: #### 88651, 17559 #### [facility] [address] [place] [address], USAHematocrit (Bld) [Volume fraction]41 %Xsounc72-01Mqd Wayne HospitalComment on above:Performed By: #### 96707, 13551 #### [facility] [address] [place] [address], USAHemoglobin (Bld) [Mass/Vol]13.9 g/zVTymnbe46.0-17.0The Wayne HospitalComment on above:Performed By: #### 13781, 91304 #### [facility] [address] [place] [address], USAIONIZED CALCIUM1.34 mmol/LHigh1.12-1.32The Wayne HospitalComment on above:Performed By: #### 98660, 52816 #### [facility] [address] [place] [address], USAOxygen (Bld) [Partial pressure]51.0 mm[Hg]Low80.0-105.0The Wayne HospitalComment on above:Performed By: #### 49895, 69808 #### [facility] [address] [place] [address], CNAJMS749.5 rgNnWwt83.0-45.0The Wayne HospitalComment on above:Performed By: #### 63016, 02281 #### [facility] [address] [place] [address], USApH (Bld)7.36 [pH]Normal7.35-7.45The Wayne HospitalComment on above:Performed By: #### 83317, 81946 #### [facility] [address] [place] [address], USAPotassium [Moles/Vol]4.2 mmol/LNormal3.5-4.9The Wayne HospitalComment on above:Performed By: #### 06973, 01326 #### [facility] [address] [place] [address], USASodium [Moles/Vol]142 mmol/KDygsym858-548Oew [facility] HospitalComment on above:Performed By: #### 30064, 55225 #### [facility] [address] [place] [address], USABASE EXCESS-1.0 mmol/LNormal-2.0-3.0The Wayne HospitalComment on above:Performed By: #### 11159, 07116 #### [facility] [address] [place] [address], USAGlucose [Mass/Vol]163 mg/pMYqwv86-583Pqk [facility] HospitalComment on above:Performed By: #### 78550, 14233 #### [facility] [address] [address], USAHematocrit (Bld) [Volume fraction]42 %Tetfwh79-69Koe [facility] HospitalComment on above:Performed By: #### 67293, 22698 #### [facility] [address] [place] [address], USAHemoglobin (Bld) [Mass/Vol]14.3 g/aYFyoglk15.0-17.0The [facility] HospitalComment on above:Performed By: #### 56165, 72167 #### [facility] [address] [facility] [address], USAIONIZED CALCIUM1.05 mmol/LLow1.12-1.32The Wayne HospitalComment on above:Performed By: #### 52877, 49969 #### [facility] [address] [place] [address], USAOxygen (Bld) [Partial pressure]368.0 mm[Hg]High80.0-105.0 The Wayne HospitalComment on above:Performed By: #### 62622, 75593 #### [facility] [address] [place] [address], ZZLXMP020.7 mySpJrwxzo42.0-45.0The Wayne HospitalComment on above:Performed By: #### 66279, 43382 #### [facility] [address] [place] [address], USApH (Bld)7.39 [pH]Normal7.35-7.45The Wayne HospitalComment on above:Performed By: #### 58562, 04055 #### [facility] [address] [place] [address], USAPotassium [Moles/Vol]3.9 mmol/LNormal3.5-4.9The Wayne HospitalComment on above:Performed By: #### 63426, 06583 #### [facility] [address] [place] [address], USASodium [Moles/Vol]145 mmol/QDatynx893-621Xmt [facility] HospitalComment on above:Performed By: #### 25231, 44092 #### [facility] [address] [place] [address], USABASE EXCESS-4.0 mmol/LLow-2.0-3.0The Wayne HospitalComment on above:Performed By: #### 67876, 59048 #### [facility] [address] [place] [address], USAGlucose [Mass/Vol]169 mg/cNAopt85-632Fjk [facility] HospitalComment on above:Performed By: #### 68810, 51802 #### [facility] [address] [address], USAHematocrit (Bld) [Volume fraction]40 %Ibbjea83-84Mra [facility] HospitalComment on above:Performed By: #### 09793, 12082 #### [facility] [address] [place] [address], LIDIAHemoglobin (Bld) [Mass/Vol]13.6 g/hIShwong51.0-17.0The Wayne HospitalComment on above:Performed By: #### [id number], [id number] #### [facility] [address] [place] [address], USAIONIZED CALCIUM1.37 mmol/LHigh1.12-1.32The Wayne HospitalComment on above:Performed By: #### [id number], [id number] #### [facility] [address] [place] [address], USAOxygen (Bld) [Partial pressure]301.0 mm[Hg]High80.0-105.0 The Wayne HospitalComment on above:Performed By: #### [id number], [id number] #### [facility] [address] [place] [address], MAXYPQ888.1 xxWrSsvbdy97.0-45.0The Wayne HospitalComment on above:Performed By: #### [id number], 06461 #### [facility] [address] [place] [address], USApH (Bld)7.38 [pH]Normal7.35-7.45The Wayne HospitalComment on above:Performed By: #### 13810, 12184 #### [facility] [address] [place] [address], USAPotassium [Moles/Vol]4.9 mmol/LNormal3.5-4.9The Wayne HospitalComment on above:Performed By: #### [id number], [id number] #### [facility] [address] [place] [address], USASodium [Moles/Vol]137 mmol/IKzy553-540Ftk Wayne HospitalComment on above:Performed By: #### [id number], 67453 #### [facility] [address] [place] [address], USABASE EXCESS-3.0 mmol/LLow-2.0-3.0The Wayne HospitalComment on above:Performed By: #### [id number], 93458 #### [facility] [address] [place] [address], USAGlucose [Mass/Vol]174 mg/hKQerv84-347Lcr Wayne HospitalComment on above:Performed By: #### [id number], 86019 #### [facility] [address] [address], USAHematocrit (Bld) [Volume fraction]45 %Euwxhq71-90Fwg Wayne HospitalComment on above:Performed By: #### [id number], 50415 #### [facility] [address] [place] [address], USAHemoglobin (Bld) [Mass/Vol]15.3 g/oMPwxkho40.0-17.0The Wayne HospitalComment on above:Performed By: #### 44009, 56406 #### [facility] [address] [place] [address], USAIONIZED CALCIUM1.06 mmol/LLow1.12-1.32The Wayne HospitalComment on above:Performed By: #### 84470, 80975 #### [facility] [address] [place] [address], USAOxygen (Bld) [Partial pressure]404.0 mm[Hg]High80.0-105.0 The Wayne HospitalComment on above:Performed By: #### 52019, 77693 #### [facility] [address] [place] [address], JLWMNV297.4 bdPpNkuarw20.0-45.0The [facility] HospitalComment on above:Performed By: #### 99325, 05064 #### [facility] [address] [place] [address], USApH (Bld)7.35 [pH]Normal7.35-7.45The [facility] HospitalComment on above:Performed By: #### 80119, 50776 #### [facility] [address] [place] [address], USAPotassium [Moles/Vol]4.7 mmol/LNormal3.5-4.9The [facility] HospitalComment on above:Performed By: #### 41717, 90515 #### [facility] [address] [place] [address], USASodium [Moles/Vol]141 mmol/KCebhbw020-059Tnk [facility] HospitalComment on above:Performed By: #### 53671, 26290 #### [facility] [address] [facility] [place] [address], USABASE EXCESS-2.0 mmol/LNormal-2.0-3.0The Wayne HospitalComment on above:Performed By: #### 83232, 38582 #### [facility] [address] [place] [address], USAGlucose [Mass/Vol]184 mg/iIZkjs85-668Kjq [facility] HospitalComment on above:Performed By: #### 36839, 51584 #### [facility] [address] [place] [address], USAHematocrit (Bld) [Volume fraction]46 %Xnkpkk81-63Hqf [facility] HospitalComment on above:Performed By: #### 75431, 45072 #### [facility] [address] [place] [address], USAHemoglobin (Bld) [Mass/Vol]15.6 g/lRGwoajr23.0-17.0The [facility] HospitalComment on above:Performed By: #### 87218, 94430 #### [facility] [address] [facility] [place] [address], USAIONIZED CALCIUM1.06 mmol/LLow1.12-1.32The [facility] HospitalComment on above:Performed By: #### 66092, 52999 #### [facility] [address] [place] [address], USAOxygen (Bld) [Partial pressure]374.0 mm[Hg]High80.0-105.0 The [facility] HospitalComment on above:Performed By: #### 88553, 87595 #### [facility] [address] [facility] [address], CCVWXZ271.3 fdZgOrmybj40.0-45.0The [facility] HospitalComment on above:Performed By: #### 39793, 96111 #### [facility] [address] [facility] [address], USApH (Bld)7.34 [pH]Low7.35-7.45The [facility] HospitalComment on above:Performed By: #### 40403, 34848 #### [facility] [address] [place] [address], USAPotassium [Moles/Vol]4.8 mmol/LNormal3.5-4.9The [facility] HospitalComment on above:Performed By: #### 18597, 74533 #### [facility] [address] [place] [address], USASodium [Moles/Vol]139 mmol/FEbuhln330-081Owy [facility] HospitalComment on above:Performed By: #### 75189, 51284 #### [facility] [address] [place] [address], USABASE EXCESS-2.0 mmol/LNormal-2.0-3.0The [facility] HospitalComment on above:Performed By: #### 65847, 60386 #### [facility] [address] [place] [address], USAGlucose [Mass/Vol]176 mg/cTJtgv96-285Vhc [facility] HospitalComment on above:Performed By: #### 67400, 28219 #### [facility] [address] [place] [address], USAHematocrit (Bld) [Volume fraction]44 %Zkmwcz27-50Jpq [facility] HospitalComment on above:Performed By: #### 43698, 41696 #### [facility] [address] [place] [address], USAHemoglobin (Bld) [Mass/Vol]15.0 g/wIZmdvdl76.0-17.0The [facility] HospitalComment on above:Performed By: #### 43488, 91899 #### [facility] [address] [place] [address], USAIONIZED CALCIUM1.07 mmol/LLow1.12-1.32The [facility] HospitalComment on above:Performed By: #### 42149, 72650 #### [facility] [address] [place] [address], USAOxygen (Bld) [Partial pressure]284.0 mm[Hg]High80.0-105.0 The [facility] HospitalComment on above:Performed By: #### 57885, 52853 #### [facility] [address] [place] [address], GJBTLZ426.5 bfEdIsaw33.0-45.0The [facility] HospitalComment on above:Performed By: #### 95484, 18205 #### [facility] [address] [place] [address], USApH (Bld)7.32 [pH]Low7.35-7.45The [facility] HospitalComment on above:Performed By: #### 69828, 08971 #### [facility] [address] [place] [address], USAPotassium [Moles/Vol]4.8 mmol/LNormal3.5-4.9The [facility] HospitalComment on above:Performed By: #### 91516, 48494 #### [facility] [address] [place] [address], USASodium [Moles/Vol]139 mmol/NFpiiuo990-619Ibm [facility] HospitalComment on above:Performed By: #### 64613, 79852 #### [facility] [address] [place] [address], USABASE EXCESS-2.0 mmol/LNormal-2.0-3.0The [facility] HospitalComment on above:Performed By: #### 58537, 00950, 43104, 07392, 07510 #### [facility] [address] [place] [address], USAGlucose [Mass/Vol]166 mg/aHKpev29-899Rml [facility] HospitalComment on above:Performed By: #### 85513, 59345, 64431, 88182, 89121 #### [facility] [address] [place] [address], USAHematocrit (Bld) [Volume fraction]45 %Cobysu77-56Qke [facility] HospitalComment on above:Performed By: #### 99749, 77014, 67190, 79905, 10516 #### [facility] [address] [place] [address], USAHemoglobin (Bld) [Mass/Vol]15.3 g/zUYlvqfm83.0-17.0The [facility] HospitalComment on above:Performed By: #### 64462, 61682, 84095, 14676, 87558 #### [facility] [address] [place] [address], USAIONIZED CALCIUM1.09 mmol/LLow1.12-1.32The [facility] HospitalComment on above:Performed By: #### 21103, 03455, 44925, 02363, 63974 #### [facility] [address] [place] [address], USAOxygen (Bld) [Partial pressure]313.0 mm[Hg]High80.0-105.0 The [facility] HospitalComment on above:Performed By: #### 12877, 52743, 07861, 55887, 08283 #### [facility] [address] [place] [address], XYKJBD268.7 cfLwQbub13.0-45.0The [facility] HospitalComment on above:Performed By: #### 47494, 40838, 84747, 64738, 20017 #### [facility] [address] [facility] [place] [address], USApH (Bld)7.32 [pH]Low7.35-7.45The [facility] HospitalComment on above:Performed By: #### 26141, 16461, 01413, 90336, 79167 #### [facility] [address] [place] [address], USAPotassium [Moles/Vol]4.4 mmol/LNormal3.5-4.9The [facility] HospitalComment on above:Performed By: #### 64201, 18877, 60606, 39348, 03620 #### [facility] [address] [place] [address], USASodium [Moles/Vol]140 mmol/QSlxpti863-086Ucq [facility] HospitalComment on above:Performed By: #### 60901, 70963, 05490, 64542, 10115 #### [facility] [address] [place] [address], USABASE EXCESS-1.0 mmol/LNormal-2.0-3.0The Wayne HospitalComment on above:Performed By: #### 39401, 48469, 19921, 67871, 73452 #### [facility] [address] [place] [address], USAGlucose [Mass/Vol]146 mg/wFQcvc84-489Hga [facility] HospitalComment on above:Performed By: #### 13703, 91317, 75658, 17617, 26061 #### [facility] [address] [place] [address], [facility] HOSPITALHematocrit (Bld) [Volume fraction]45 %Ntmjvz61-25Zyd [facility] HospitalComment on above:Performed By: #### 49680, 32247, 42023, 33163, 58378 #### [facility] [address] [place] [address], [facility] HOSPITALHemoglobin (Bld) [Mass/Vol]15.3 g/qITvorki26.0-17.0The [facility] HospitalComment on above:Performed By: #### 27133, 71388, 26465, 60907, 93706 #### [facility] [address] [place] [address], USAIONIZED CALCIUM1.06 mmol/LLow1.12-1.32The [facility] HospitalComment on above:Performed By: #### 80858, 16764, 84578, 00499, 37651 #### [facility] [address] [place] [address], USAOxygen (Bld) [Partial pressure]319.0 mm[Hg]High80.0-105.0 The [facility] HospitalComment on above:Performed By: #### 24262, 51120, 47729, 32088, 92233 #### [facility] [address] [place] [address], PXEEUA389.9 shCuTpyd14.0-45.0The [facility] HospitalComment on above:Performed By: #### 79520, 53314, 02990, 43837, 17860 #### [facility] [address] [place] [address], USApH (Bld)7.32 [pH]Low7.35-7.45The [facility] HospitalComment on above:Performed By: #### 96855, 06686, 13133, 65588, 11558 #### [facility] [address] [place] [address], USAPotassium [Moles/Vol]4.4 mmol/LNormal3.5-4.9The [facility] HospitalComment on above:Performed By: #### 91212, 90954, 67550, 82611, 98372 #### [facility] [address] [place] [address], USASodium [Moles/Vol]138 mmol/QRwigxj012-698Voc [facility] HospitalComment on above:Performed By: #### 81024, 62676, 64535, 27071, 09907 #### [facility] [address] [place] [address], USABASE EXCESS0.0 mmol/LNormal-2.0-3.0The [facility] HospitalComment on above:Performed By: #### 67645, 79773, 78002, 65027, 81453 #### [facility] [address] [place] [address], USAGlucose [Mass/Vol]116 mg/gIKmnc30-787Ojr [facility] HospitalComment on above:Performed By: #### 73110, 10823, 77572, 40590, 21143 #### [facility] [address] [place] [address], USAHematocrit (Bld) [Volume fraction]43 %Bsvejc78-65Zgd [facility] HospitalComment on above:Performed By: #### 58681, 71884, 81725, 31079, 47990 #### [facility] [address] [place] [address], USAHemoglobin (Bld) [Mass/Vol]14.6 g/aKFjqmfd40.0-17.0The [facility] HospitalComment on above:Performed By: #### 88625, 35562, 82242, 88696, 86843 #### [facility] [address] [place] [address], USAIONIZED CALCIUM1.05 mmol/LLow1.12-1.32The [facility] HospitalComment on above:Performed By: #### 18407, 92999, 82612, 41939, 16462 #### [facility] [address] [place] [address], USAOxygen (Bld) [Partial pressure]409.0 mm[Hg]High80.0-105.0 The [facility] HospitalComment on above:Performed By: #### 50549, 27624, 16988, 95513, 78017 #### [facility] [address] [place] [address], FADGOW703.9 pfZjQcxedz96.0-45.0The [facility] HospitalComment on above:Performed By: #### 79833, 00892, 04749, 11638, 64553 #### [facility] [address] [place] [address], USApH (Bld)7.36 [pH]Normal7.35-7.45The [facility] HospitalComment on above:Performed By: #### 43516, 80240, 35357, 32561, 11644 #### [facility] [address] [place] [address], USAPotassium [Moles/Vol]4.5 mmol/LNormal3.5-4.9The [facility] HospitalComment on above:Performed By: #### 23742, 50158, 62801, 33538, 55875 #### [facility] [address] [place] [address], USASodium [Moles/Vol]138 mmol/BGasxif881-925Edy [facility] HospitalComment on above:Performed By: #### 98284, 13319, 77466, 02480, 14861 #### [facility] [address] [place] [address], USABASE EXCESS0.0 mmol/LNormal-2.0-3.0The [facility] HospitalComment on above:Performed By: #### 68976, 70219, 95573, 71602, 91487 #### [facility] [address] [place] [address], USAGlucose [Mass/Vol]101 mg/vWIhgljx98-057Mef [facility] HospitalComment on above:Performed By: #### 49427, 55350, 09144, 21355, 92699 #### [facility] [address] [place] [address], USAHematocrit (Bld) [Volume fraction]44 %Nqqicc57-45Jvg [facility] HospitalComment on above:Performed By: #### 63005, 38065, 62326, 00524, 65915 #### [facility] [address] [place] [address], USAHemoglobin (Bld) [Mass/Vol]15.0 g/aHYnspti17.0-17.0The [facility] HospitalComment on above:Performed By: #### 70069, 97770, 42047, 59047, 63896 #### [facility] [address] [place] [address], USAIONIZED CALCIUM1.02 mmol/LLow1.12-1.32The [facility] HospitalComment on above:Performed By: #### 76040, 11700, 93411, 32184, 49729 #### [facility] [address] [place] [address], [facility] HOSPITALOxygen (Bld) [Partial pressure]516.0 mm[Hg]High80.0-105.0 The [facility] HospitalComment on above:Performed By: #### 15840, 61325, 22761, 21153, 44752 #### [facility] [address] [facility] [address], KMAPYY008.7 wbSwDgsi18.0-45.0The [facility] HospitalComment on above:Performed By: #### 85036, 45812, 11327, 78157, 70031 #### [facility] [address] [facility] [address], USApH (Bld)7.33 [pH]Low7.35-7.45The [facility] HospitalComment on above:Performed By: #### 60995, 87868, 70287, 99061, 11991 #### [facility] [address] [place] [address], [facility] HOSPITALPotassium [Moles/Vol]4.1 mmol/LNormal3.5-4.9The [facility] HospitalComment on above:Performed By: #### 47709, 41825, 36520, 04002, 03930 #### [facility] [address] [place] [address], USASodium [Moles/Vol]137 mmol/RGjq892-199Vmj [facility] HospitalComment on above:Performed By: #### 64634, 71590, 78966, 45814, 50502 #### [facility] [address] [place] [address], USAHematocrit (Bld) [Volume fraction]43 %Tbydcq34-24Krj [facility] HospitalComment on above:Performed By: #### 98745, 03717, 16654, 03568, 29588 #### [facility] [address] [place] [address], USAHemoglobin (Bld) [Mass/Vol]14.6 g/kDZshsmt50.0-17.0The [facility] HospitalComment on above:Performed By: #### 58013, 11077, 69544, 58150, 65959 #### [facility] [address] [place] [address], USAOxygen (Bld) [Partial pressure]51.0 mm[Hg]NormalThe Wayne HospitalComment on above:Performed By: #### 45230, 65611, 85658, 71462, 90413 #### [facility] [address] [place] [address], USABASE EXCESS-4.0 mmol/LLow-2.0-3.0The [facility] HospitalComment on above:Performed By: #### 24772, 64130, 39724, 24919, 76570 #### [facility] [address] [place] [address], USAGlucose [Mass/Vol]104 mg/xQJriufv50-028Lln [facility] HospitalComment on above:Performed By: #### 52989, 11946, 68006, 66115, 71675 #### [facility] [address] [place] [address], USAHematocrit (Bld) [Volume fraction]55 %Krrm69-13Isk [facility] HospitalComment on above:Performed By: #### 62271, 38502, 34685, 95572, 57968 #### [facility] [address] [place] [address], USAHemoglobin (Bld) [Mass/Vol]18.7 g/nNXflv02.0-17.0The [facility] HospitalComment on above:Performed By: #### 15181, 86318, 80200, 70740, 28504 #### [facility] [address] [place] [address], USAIONIZED CALCIUM1.24 mmol/LNormal1.12-1.32The [facility] HospitalComment on above:Performed By: #### 28532, 37029, 26249, 15009, 42929 #### [facility] [address] [place] [address], USAOxygen (Bld) [Partial pressure]159.0 mm[Hg]High80.0-105.0 The [facility] HospitalComment on above:Performed By: #### 81692, 41281, 99880, 30464, 47613 #### [facility] [address] [place] [address], IBSIIC925.7 vgTxInlp94.0-45.0The [facility] HospitalComment on above:Performed By: #### 60282, 94367, 28719, 81727, 96146 #### [facility] [address] [place] [address], USApH (Bld)7.30 [pH]Low7.35-7.45The [facility] HospitalComment on above:Performed By: #### 48126, 99189, 33400, 04316, 68291 #### [facility] [address] [place] [address], USAPotassium [Moles/Vol]4.1 mmol/LNormal3.5-4.9The [facility] HospitalComment on above:Performed By: #### 95626, 07869, 00441, 25662, 85612 #### [facility] [address] [place] [address], USASodium [Moles/Vol]139 mmol/JEprhse732-746Xws [facility] HospitalComment on above:Performed By: #### 69202, 65129, 65448, 87549, 53847 #### [facility] [address] [place] [address], USAPHOSPHORUS BLOODon [id number] [Mass/Vol]4.3 mg/dL Normal2.5-5.0The [facility] HospitalComment on above:Order Comment: R/O Pulmonary EdemaPerformed By: #### 99038, 91076, 53267 ####[facility] [place] [address], [place] POC GLUCOSE LABon 80-58-4594Cqnijaj [Mass/Vol]115 mg/pCFlaf96-510Imh [facility] HospitalComment on above:Performed By: #### 74042 #### [facility] [address] [facility] [address], USAGlucose [Mass/Vol]145 mg/qHLnky16-427Owf [facility] HospitalComment on above:Performed By: #### 16897 #### [facility] [address] [facility] [address], USAGlucose [Mass/Vol]121 mg/jLIrfg67-777Sbp [facility] HospitalComment on above:Performed By: #### 76579 ####[facility] [facility] [address], USAGlucose [Mass/Vol] 122 mg/dXXzcs39-336Bee [facility] HospitalComment on above: Performed By: #### 20704 ####[facility] [place] [address], USAPORTABLE CHEST 1 VIEWon [id number] CHEST 1 VIEW [facility] Department of Radiology [address] [place] [id number] Patient Name: TRACIE CRAIN : 1965 Sex: M Age: Race: NA Pt. Location: [id number] Patient Status: I Ordered Date: 03/19/2019 5:50:00 PM Completed Date: 03/19/2019 06:20 PM Requesting Provider: TIMBO BLACK Attending Provider: TIMBO BLACK Report Copy To: Signs & Symptoms: O2 Desaturation History: Patient history not available Comments: Check E.T. Position Exam: PORTABLE CHEST 1 VIEW PORTABLE CHEST 1 VIEW 03/19/2019 6:20 PM EDT SIGNS AND SYMPTOMS: O2 Desaturation TECHNOLOGIST COMMENTS: check ET tube position QUESTION FOR THE RADIOLOGIST: Check E.T. Position PROTOCOL: AP(PA) view was obtained. COMPARISON: Earlier today at 1651. FINDINGS: Endotracheal tube tip terminates in the upper thoracic trachea in satisfactory position. Horseheads-Sher catheter, chest tubes and enteric tube appear [...] findings. Electronically signed by:Yenni Osuna. Transcribed by: [email or web address], User Resident: EMILIA SHERMAN Electronically Signed by: YENNI OSUNA @ 03/20/2019 05:05 PM I personally read this/these film(s) with this [facility] CenterComment on above:Order Comment: << On admission If not done in ED>> No: Do not add to previous drawPORTABLE CHEST 1 [facility]Un[facility] Department of [facility] [address] [place] [id number] Patient Name: TRACIE CRAIN : 1965 Sex: M Age: Race: NA Pt. Location: [id number] Patient Status: I Ordered Date: 03/19/2019 4:45:00 PM Completed Date: 03/19/2019 05:01 PM Requesting Provider: TIMBO BLACK Attending Provider: TIMBO BLACK Report Copy To: Signs & Symptoms: Post CABG History: Patient history not available Comments: Check E.T. Position Exam: PORTABLE CHEST 1 VIEW PORTABLE CHEST 1 VIEW 03/19/2019 5:01 PM EDT SIGNS AND SYMPTOMS: Post CABG TECHNOLOGIST COMMENTS: Post CABG QUESTION FOR THE RADIOLOGIST: Check E.T. Position PROTOCOL: AP(PA) view was obtained. COMPARISON: Chest radiograph March 19, 2019 at 1534 FINDINGS: Cardiomediastinal silhouette remains unchanged. Trachea is midline. ET tube is 8 cm from the loki. 2 right-sided chest tubes appear in satisfactory position. Horseheads-Sher catheter with tip projecting over the pulmonary [...] findings. Electronically signed by:Divya Collins. Transcribed by: [email or web address], User Resident: ANAI ALVARADO Electronically Signed by: DIVYA COLLINS @ 03/20/2019 11:00 AM I personally read this/these film(s) with this residentFirelands Regional Medical CenterComment on above:Order Comment: << On admission If not done in ED>> No: Do not add to previous drawPORTABLE CHEST 1 VIEWUnMain [facility] Department of Radiology [address] [place] [id number] Patient Name: TRACIE CRAIN : 1965 Sex: M Age: Race: NA Pt. Location: [id number] Patient Status: I Ordered Date: 03/19/2019 3:55:00 PM Completed Date: 03/19/2019 04:06 PM Requesting Provider: TIMBO BLACK Attending Provider: TIMBO BLACK Report Copy To: Signs & Symptoms: INTRA OP chest ,minimally invasive mitral valve repair , replacement with cryo maze. History: Comments: INTRA OP chest ,minimally invasive mitral valve repair , replacement with cryo maze. Exam: PORTABLE CHEST 1 VIEW PORTABLE CHEST 1 VIEW 03/19/2019 4:06 PM [...] tubes are in place. No appreciable pneumothorax. Horseheads-Sher catheter in place likely terminating in the [...] disease most likely representing multifocal atelectasis. * Horseheads-Sher catheter likely terminating in the proximal right main pulmonary artery. * Trace pleural fluid bilaterally. Approved by:Pierce Sherman on 03/19/2019 5:04 PM EDT. I, Yenni Osuna, have reviewed the images and report and concur with these findings. Electronically signed by:Yenni Osuna. Transcribed by: [email or web address], User Resident: EMILIA SHERMAN Electronically Signed by: YENNI OSUNA @ 03/20/2019 05:04 PM I personally read this/these film(s) with this residentFirelands Regional Medical CenterComment on above:Order Comment: << On admission If not done in ED>> No: Do not add to previous drawPROTHROMBIN TIMEon [id number] Coag (PPP) [Relative time]1.60 {INR}High0.91-1.16[facility] Comment on above:Order Comment: R/O Pulmonary EdemaResult Comment: ACCCP RECOMMENDED INR FOR WARFARIN THERAPY ------- CONDITION INR PROPHYLAXIS OF VENOUS THROMBOSIS 2-3 (HIGH-RISK SURGERY) TREATMENT OF VENOUS THROMBOSIS 2-3 TREATMENT OF PULMONARY EMBOLISM 2-3 PREVENTION OF SYSTEMIC EMBOLISM: 2-3 ACUTE MYOCARDIAL INFARCTION TISSUE HEART VALVES VALVULAR HEART DISEASE ATRIAL FIBRILLATION RECURRENT SYSTEMIC EMBOLISM MECHANICAL HEART VALVE 2.5-3.5 FROM: ORAL ANTICOAGULANTS. MECHANISM OF ACTION, CLINICAL EFFECTIVENESS, AND OPTIMAL THERAPEUTIC RANGE. CHEST 1995;108:231S-246S.Performed By: #### [id number] ####[facility] [place] [address], [place] Coag (PPP) [Time]19.1 sHigh 12.3-14.8The [facility] HospitalComment on above:Order Comment: R/O Pulmonary EdemaResult Comment: ALL RESULTS MUST BE INTERPRETED WITH RESPECT TO BLOOD DRAWING ARTIFACT OR DILUTION ERROR OF ANTICOAGULANT AT THE TIME OF SAMPLING.Performed By: #### [id number] ####[facility] [facility] [address].[place] [id number], [place] Coag (PPP) [Relative time]1.68 {INR}High0.91-1.16[facility] HospitalComment on above:Order Comment: If not done in ED No: Do not add to previous drawResult Comment: [facility] RECOMMENDED INR FOR WARFARIN THERAPY ------- CONDITION INR PROPHYLAXIS OF VENOUS THROMBOSIS 2-3 (HIGH-RISK SURGERY) TREATMENT OF VENOUS THROMBOSIS 2-3 TREATMENT OF PULMONARY EMBOLISM 2-3 PREVENTION OF SYSTEMIC EMBOLISM: 2-3 ACUTE MYOCARDIAL INFARCTION TISSUE HEART VALVES VALVULAR HEART DISEASE ATRIAL FIBRILLATION RECURRENT SYSTEMIC EMBOLISM MECHANICAL HEART VALVE 2.5-3.5 FROM: ORAL ANTICOAGULANTS. MECHANISM OF ACTION, CLINICAL EFFECTIVENESS, AND OPTIMAL THERAPEUTIC RANGE. CHEST 1995;108:231S-246S.Performed By: #### [id number] #### [facility] [address] [place] [address], [place] Coag (PPP) [Time]19.9 sHigh12.3-14.8The [facility] HospitalComment on above:Order Comment: If not done in ED No: Do not add to previous drawResult Comment: ALL RESULTS MUST BE INTERPRETED WITH RESPECT TO BLOOD DRAWING ARTIFACT OR DILUTION ERROR OF ANTICOAGULANT AT THE TIME OF SAMPLING.Performed By: #### [id number] #### [facility] [address] [facility] [address], [place] Coag (PPP) [Relative time]1.02 {INR}Normal0.91-1.16The [facility] HospitalComment on above:Order Comment: If not done in ED No: Do not add to previous drawResult Comment: ACCCP RECOMMENDED INR FOR WARFARIN THERAPY ------- CONDITION INR PROPHYLAXIS OF VENOUS THROMBOSIS 2-3 (HIGH-RISK SURGERY) TREATMENT OF VENOUS THROMBOSIS 2-3 TREATMENT OF PULMONARY EMBOLISM 2-3 PREVENTION OF SYSTEMIC EMBOLISM: 2-3 ACUTE MYOCARDIAL INFARCTION TISSUE HEART VALVES VALVULAR HEART DISEASE ATRIAL FIBRILLATION RECURRENT SYSTEMIC EMBOLISM MECHANICAL HEART VALVE 2.5-3.5 FROM: ORAL ANTICOAGULANTS. MECHANISM OF ACTION, CLINICAL EFFECTIVENESS, AND OPTIMAL THERAPEUTIC RANGE. CHEST 1995;108:231S-246S.Performed By: #### 16505, 29696, 65358, 69505, 18657 #### [facility] [address] [place] [address], USAPT Coag (PPP) [Time]13.4 bNsowbd66.3-14.8The Wayne HospitalComment on above:Order Comment: If not done in ED No: Do not add to previous drawResult Comment: ALL RESULTS MUST BE INTERPRETED WITH RESPECT TO BLOOD DRAWING ARTIFACT OR DILUTION ERROR OF ANTICOAGULANT AT THE TIME OF SAMPLING.Performed By: #### 26065, 84257, 02674, 61575, 70490 #### [facility] [address] [place] [address], USARB'S 2 UNITSon [id number] INTERP 1CBrecksville VA / Crille HospitalComment on above:Performed By: #### 38784, 79049, 47453, 67943, 98430 #### [facility] [address] [place] [address], USACROSSMATCH INTERP 2CBrecksville VA / Crille HospitalComment on above:Performed By: #### 74638, 26296, 97543, 82275, 19286 #### [facility] [address] [place] [address], USAPRODUCT CODE [id number] Regional Medical CenterComment on above:Performed By: #### 84624, 74755, 59091, 22249, 52992 #### [facility] [address] [place] [address], USAPRODUCT CODE [id number] Regional Medical CenterComment on above:Performed By: #### 05801, 57491, 14557, 73838, 49739 #### [facility] [address] [place] [address], USAPRODUCT STATUS 1RWayne HospitalComment on above:Result Comment: Result changed by IF on 03/19/2019 08:33. The previous value was XM. Result changed by IF on 03/19/2019 16:19. The previous value was IS. Result changed by IF on 03/20/2019 09:43. The previous value was XM. Result changed by IF on 03/20/2019 09:46. The previous value was XX.Performed By: #### 55724, 77066, 21464, 23802, 01011 #### [facility] [address] [place] [address], USAPRODUCT STATUS 2RWayne HospitalComment on above:Result Comment: Result changed by IF on 03/19/2019 08:33. The previous value was XM. Result changed by IF on 03/19/2019 16:19. The previous value was IS. Result changed by IF on 03/20/2019 09:43. The previous value was XM. Result changed by IF on 03/20/2019 11:11. The previous value was XX.Performed By: #### 58939, 25621, 62998, 84706, 48939 #### [facility] [address] [place] [address], USAUNIT ABO 1[facility] Comment on above:Performed By: #### 65661, 61503, 38700, 24389, 16684 #### [facility] [address] [place] [address], USAUNIT ABO 2[facility] Comment on above:Performed By: #### 76074, 20291, 09794, 96582, 52389 #### [facility] [address] [place] [address], USAUNIT ID [id number] Campus Medical CenterComment on above:Performed By: #### 02679, 20214, 45305, 73039, 80380 #### [facility] [address] [place] [address], [facility] HOSPITALUNIT ID [id number] North HospitalComment on above:Performed By: #### 82665, 56772, 22333, 17762, 64143 #### [facility] [address] [place] [address], [facility] HOSPITALUNIT RH 1NegaBerger HospitalComment on above:Performed By: #### 23830, 31882, 81886, 01632, 76033 #### [facility] [address] [place] [address], [facility] HOSPITALUNIT RH 2NGreen Cross HospitalComment on above:Performed By: #### 85983, 79179, 23590, 80922, 89434 #### [facility] [address] [place] [address], [facility]*MRSA/MSSA DNA NASALon 03-18-2019*MRSA/MSSA DNA NASAL Clinical Report: (D) Specimen: NASAL SWAB Collected: 03/18/2019 17:05 Status: Final Last Updated: 03/19/2019 12:12 MSSA DNA (Final) Negative MRSA DNA (Final) NegativeFirelands Regional Medical CenterComment on above:Performed By: #### 15663, 66149 #### [place] [address], [facility] HOSPITALAPTTon [id number] Coag (Bld) [Time]58.1 sHigh25.0-35.0 The Wayne HospitalComment on above:Order Comment: << ON ADMISSION If not done in ED>> No: Do not add to previous drawResult Comment: ALL RESULTS MUST BE INTERPRETED WITH [...] RESULT IS QUESTIONABLE IN THE PRESENCE OF HEPARIN.Performed By: #### 21601, 11622, 18794, 89319, 60137 #### [facility] [address] [place] [address], USAaPTT Coag (Bld) [Time]67.7 sHigh25.0-35.0The Wayne HospitalComment on above:Order Comment: << ON ADMISSION If not done in ED>> No: Do not add to previous drawResult Comment: ALL RESULTS MUST BE INTERPRETED WITH [...] RESULT IS QUESTIONABLE IN THE PRESENCE OF HEPARIN.Performed By: #### 46236, 41377, 41476, 80926, 11869 #### [facility] [address] [place] [address], USAaPTT Coag (Bld) [Time]74.8 sCritically high25.0-35.0The Wayne HospitalComment on above:Order Comment: << ON ADMISSION If not done in ED>> No: Do not add to previous drawResult Comment: ALL RESULTS MUST BE INTERPRETED WITH [...] READ BACK BY CAMILA ARRINGTON RN AT 0609.Performed By: #### 87309, 66641, 99912, 50730, 51944 #### [facility] [address] [place] [address], USABASIC METABOLIC PANELon 27-00-9773Btwusxu [Mass/Vol]9.2 mg/dLNormal8.6-10.3The Wayne HospitalComment on above:Order Comment: << ON ADMISSION If not done in ED>> No: Do not add to previous drawPerformed By: #### 34157, 86769, 01121, 68856, 82869 #### [facility] [address] [place] [address], USAChloride [Moles/Vol]105 mmol/DJtmoqp71-167Lgg Wayne HospitalComment on above:Order Comment: << ON ADMISSION If not done in ED>> No: Do not add to previous drawPerformed By: #### 51215, 07946, 67463, 87394, 25130 #### [facility] [address] [place] [address], USACO2 [Moles/Vol]27 mmol/VTugrlv61-84Ltg Wayne HospitalComment on above:Order Comment: << ON ADMISSION If not done in ED>> No: Do not add to previous drawPerformed By: #### 19355, 10436, 95604, 14661, 68759 #### [facility] [address] [place] [address], USACreatinine [Mass/Vol]1.11 mg/dLNormal0.70-1.30The Wayne HospitalComment on above:Order Comment: << ON ADMISSION If not done in ED>> No: Do not add to previous drawPerformed By: #### 34585, 65543, 25125, 88520, 89718 #### [facility] [address] [place] [address], USAGFR/1.73 sq M predicted among blacks MDRD (S/P/Bld) [Vol rate/Area]mL/min/{1.73_m2}Normal>60The [facility] Comment on above:Order Comment: << ON ADMISSION If not done in ED>> No: Do not add to previous drawPerformed By: #### 42197, 26137, 54078, 21482, 32912 #### [facility] [address] [place] [address], USAGFR/1.73 sq M predicted among non-blacks MDRD (S/P/Bld) [Vol rate/Area]mL/min/{1.73_m2}Normal>60The [facility] Comment on above:Order Comment: << ON ADMISSION If not done in ED>> No: Do not add to previous drawPerformed By: #### 04002, 99471, 01814, 17936, 91462 #### [facility] [address] [place] [address], USAGlucose [Mass/Vol]101 mg/gUSivc25-642Beh Wayne HospitalComment on above:Order Comment: << ON ADMISSION If not done in ED>> No: Do not add to previous drawPerformed By: #### 02998, 78494, 81347, 12926, 91936 #### [facility] [address] [place] [address], USAPotassium [Moles/Vol]4.2 mmol/LNormal3.5-5.1The Wayne HospitalComment on above:Order Comment: << ON ADMISSION If not done in ED>> No: Do not add to previous drawPerformed By: #### 72398, 06992, 07149, 86233, 02192 #### [facility] [address] [place] [address], USASodium [Moles/Vol]136 mmol/FTvaggj401-527Cip Wayne HospitalComment on above:Order Comment: << ON ADMISSION If not done in ED>> No: Do not add to previous drawPerformed By: #### 79501, 56701, 71217, 65211, 10214 #### [facility] [address] [place] [address], USAUrea nitrogen [Mass/Vol]15 mg/dLNormal7-25The Wayne HospitalComment on above:Order Comment: << ON ADMISSION If not done in ED>> No: Do not add to previous drawPerformed By: #### 49617, 15033, 02126, 44141, 47272 #### [facility] [address] [place] [address], USACBC COMPLETE BLOOD COUNTon 56-08-8542Ulsaogdwdyt distribution width (RBC) [Ratio]12.8 %Htzrhe75.5-15.0The Wayne HospitalComment on above:Order Comment: << ON ADMISSION If not done in ED>> No: Do not add to previous drawPerformed By: #### 75684, 87473, 66772, 89313, 47145 #### [facility] [address] [place] [address], USAHematocrit (Bld) [Volume fraction]55.1 %High39.0-50.0The Wayne HospitalComment on above:Order Comment: << ON ADMISSION If not done in ED>> No: Do not add to previous drawPerformed By: #### 75755, 50158, 87633, 21875, 23287 #### [facility] [address] [place] [address], [facility] HOSPITALHemoglobin (Bld) [Mass/Vol]17.5 g/gRRwuh38.0-17.0The Wayne HospitalComment on above:Order Comment: << ON ADMISSION If not done in ED>> No: Do not add to previous drawPerformed By: #### 43375, 26174, 60716, 36086, 02369 #### [facility] [address] [place] [address], USAMCH (RBC) [Entitic mass]28.6 ekYklrxn94.0-33.0The Wayne HospitalComment on above:Order Comment: << ON ADMISSION If not done in ED>> No: Do not add to previous drawPerformed By: #### 31622, 84815, 99763, 35902, 37863 #### [facility] [address] [place] [address], [facility] – ALTUSHC (RBC) [Mass/Vol]31.8 g/dLLow32.0-35.0The Wayne HospitalComment on above:Order Comment: << ON ADMISSION If not done in ED>> No: Do not add to previous drawPerformed By: #### 41664, 00603, 66272, 02631, 78403 #### [facility] [address] [place] [address], [facility] – ALTUSV (RBC) [Entitic vol]90.0 cCEvnbrq27.0-98.0The Wayne HospitalComment on above:Order Comment: << ON ADMISSION If not done in ED>> No: Do not add to previous drawPerformed By: #### 75561, 19901, 33216, 98462, 88111 #### [facility] [address] [place] [address], [facility] HOSPITALNucleated RBC/100 WBC (Bld) [Ratio]0 %Normal0-0The Wayne HospitalComment on above:Order Comment: << ON ADMISSION If not done in ED>> No: Do not add to previous drawPerformed By: #### 46363, 95952, 70141, 70218, 07586 #### [facility] [address] [place] [address], [facility] HOSPITALPLAT [id number] 10*3/eOWzagzh186-690Olo Wayne HospitalComment on above:Order Comment: << ON ADMISSION If not done in ED>> No: Do not add to previous drawPerformed By: #### 11801, 81580, 45744, 11124, 83721 #### [facility] [address] [place] [address], [facility] HOSPITALRBC (Bld) [#/Vol]6.12 10*6/uLHigh4.20-5.70The Wayne HospitalComment on above:Order Comment: << ON ADMISSION If not done in ED>> No: Do not add to previous drawPerformed By: #### 12078, 00088, 38902, 97379, 51901 #### [facility] [address] [place] [address], USAWBC (Bld) [#/Vol]9.33 10*3/uLNormal4.00-10.60The Wayne HospitalComment on above:Order Comment: << ON ADMISSION If not done in ED>> No: Do not add to previous drawPerformed By: #### 72811, 49825, 09426, 27148, 83990 #### [facility] [address] [place] [address], USAMAGNESIUM BLOODon 72-16-2202Mggspbihf [Mass/Vol]2.4 mg/dL Normal1.9-2.7The Wayne HospitalComment on above:Performed By: #### 17312, 16777, 78177, 42616, 30236 #### [facility] [address] [place] [address], USATYPE AND SCREENon 76-65-2623ZLY INTERPRETATIONONoBethesda North HospitalComment on above:Performed By: #### 36602, 57451, 09420, 97816, 02764 #### [facility] [address] [place] [address], USARH INTERPRETATIONNegativeNoBethesda North HospitalComment on above:Performed By: #### 25385, 70719, 47625, 39846, 20375 #### [facility] [address] [place] [address], USAUFH HEPARIN ASSAYon 23-09-6814BSHZJNAIYWRXEA HEPARIN0.19 IU/mLLow0.30-0.70The Wayne HospitalComment on above:Order Comment: If not done in ED No: Do not add to previous drawResult Comment: Rivaroxaban and Apixaban will interfere with the anti Xa assay used to monitor UFH and LMWH.Performed By: #### 96782, 77194, 52615, 27864, 85746 #### [facility] [address] [place] [address], USAUNFRACTIONATED HEPARIN0.29 IU/mLLow0.30-0.70The Wayne HospitalComment on above:Order Comment: << ON ADMISSION If not done in ED>> No: Do not add to previous drawResult Comment: Rivaroxaban and Apixaban will interfere with the anti Xa assay used to monitor UFH and LMWH.Performed By: #### 84763, 11050, 99999, 79116, 18268 #### [facility] [address] [place] [address], USAUNFRACTIONATED HEPARIN0.25 IU/mLLow0.30-0.70The Wayne HospitalComment on above:Result Comment: Rivaroxaban and Apixaban will interfere with the anti Xa assay used to monitor UFH and LMWH.Performed By: #### 82390, 58784, 32090, 15030, 59988 #### [facility] [address] [place] [address], USAURINALYSISon 72-64-1351Qykevwibpw (U)CLEARNormalCLEARThe Wayne HospitalComment on above:Order Comment: If not done in ED No: Do not add to previous drawPerformed By: #### 21206, 05745, 73496, 75629, 10019 #### [facility] [address] [place] [address], USABilirubin [Mass/Vol]NegativeNormalNEGATIVEThe Wayne HospitalComment on above:Order Comment: If not done in ED No: Do not add to previous drawPerformed By: #### 52596, 69136, 20549, 17875, 14723 #### [facility] [address] [place] [address], USABLOODNegativeNormalNEGATIVEThe Wayne HospitalComment on above:Order Comment: If not done in ED No: Do not add to previous drawPerformed By: #### 29547, 80851, 21906, 30340, 43460 #### [facility] [address] [place] [address], USAColor (U)YELLOWNormalYELLOWThe Wayne HospitalComment on above:Order Comment: If not done in ED No: Do not add to previous drawPerformed By: #### 70420, 10724, 74724, 39993, 43761 #### [facility] [address] [place] [address], USAGlucose [Mass/Vol]NegativeNormalNEGATIVEThe Wayne HospitalComment on above:Order Comment: If not done in ED No: Do not add to previous drawPerformed By: #### 44107, 03120, 60169, 04523, 69238 #### [facility] [address] [place] [address], USAKETONENegativeNormalNEGATIVEThe Wayne HospitalComment on above:Order Comment: If not done in ED No: Do not add to previous drawPerformed By: #### 89497, 20306, 24396, 54272, 22654 #### [facility] [address] [place] [address], USALEUK ESTERNegativeNormalNEGATIVEThe Wayne HospitalComment on above:Order Comment: If not done in ED No: Do not add to previous drawPerformed By: #### 41326, 84998, 92094, 84489, 05177 #### [facility] [address] [place] [address], USAMICRO NOT DONEnegative chemical reactions unless requested in original orderNormalThe Wayne HospitalComment on above: Order Comment: If not done in ED No: Do not add to previous drawPerformed By: #### 82993, 44313, 57011, 60804, 06915 #### [facility] [address] [place] [address], USANitrite Ql (U)NegativeNormalNEGATIVEThe Wayne HospitalComment on above:Order Comment: If not done in ED No: Do not add to previous drawPerformed By: #### 40347, 22824, 67729, 21763, 80268 #### [facility] [address] [place] [address], USApH (Bld)6.6Xdlpdw7.0-8.0The Wayne HospitalComment on above:Order Comment: If not done in ED No: Do not add to previous drawPerformed By: #### 53767, 01147, 65929, 35874, 66741 #### [facility] [address] [place] [address], [facility] HOSPITALProtein (U) [Mass/Vol]NegativeNormalNEGATIVEThe Wayne HospitalComment on above:Order Comment: If not done in ED No: Do not add to previous drawPerformed By: #### 26633, 65858, 91813, 06476, 74229 #### [facility] [address] [place] [address], USASPEC GRAV1.159Vbrnbp0.015-1.020The Wayne HospitalComment on above:Order Comment: If not done in ED No: Do not add to previous drawPerformed By: #### 49649, 97538, 13059, 47169, 90513 #### [facility] [address] [place] [address], USAAPTTon [id number] Coag (Bld) [Time]67.3 sHigh25.0-35.0 The Wayne HospitalComment on above:Order Comment: No: Do not add to previous drawResult Comment: ALL RESULTS MUST BE INTERPRETED WITH RESPECT TO BLOOD DRAWING ARTIFACT OR DILUTION ERROR OF ANTICOAGULANT AT THE TIME OF SAMPLING. THE APTT SHOULD NOT BE USED TO MONITOR UNFRACTIONATED HEPARIN THERAPY, THIS LABORATORY NO LONGER HAS AN ESTABLISHED THERAPEUTIC RANGE BASED ON THE APTT. IT IS RECOMMENDED THAT THE UFH - HEPARIN ASSAY (ANTI-XA ACTIVITY) BE USED FOR THIS PURPOSE.Performed By: #### 63883, 56312, 99668, 56391, 32938 #### [facility] [address] [place] [address], USABASIC METABOLIC PANELon 99-37-5061Pgekxxw [Mass/Vol]9.1 mg/dLNormal8.6-10.3The Wayne HospitalComment on above:Order Comment: No: Do not add to previous drawPerformed By: #### 83578, 96090, 55919, 64371, 99297 #### [facility] [address] [place] [address], USAChloride [Moles/Vol]101 mmol/NXyyypz10-060Zcy Wayne HospitalComment on above:Order Comment: No: Do not add to previous drawPerformed By: #### 32018, 34568, 40151, 57233, 02096 #### [facility] [address] [place] [address], USACO2 [Moles/Vol]24 mmol/QSitzyw89-23Qnf Wayne HospitalComment on above:Order Comment: No: Do not add to previous draw Performed By: #### 76068, 61630, 00039, 55020, 22453 #### [facility] [address] [place] [address], USACreatinine [Mass/Vol]1.02 mg/dLNormal0.70-1.30The Wayne HospitalComment on above:Order Comment: No: Do not add to previous drawPerformed By: #### 18104, 10236, 83668, 13577, 76769 #### [facility] [address] [place] [address], USAGFR/1.73 sq M predicted among blacks MDRD (S/P/Bld) [Vol rate/Area]mL/min/{1.73_m2}Normal>60The [facility] Comment on above:Order Comment: No: Do not add to previous drawPerformed By: #### 66359, 83012, 65915, 30366, 01518 #### [facility] [address] [place] [address], USAGFR/1.73 sq M predicted among non-blacks MDRD (S/P/Bld) [Vol rate/Area]mL/min/{1.73_m2}Normal>60The [facility] Comment on above:Order Comment: No: Do not add to previous drawPerformed By: #### 69435, 01637, 27055, 68831, 11829 #### [facility] [address] [place] [address], USAGlucose [Mass/Vol]102 mg/xSHvti73-664Itv Wayne HospitalComment on above:Order Comment: No: Do not add to previous drawPerformed By: #### 12530, 31339, 58437, 50276, 04798 #### [facility] [address] [place] [address], USAPotassium [Moles/Vol]3.7 mmol/LNormal3.5-5.1The Wayne HospitalComment on above:Order Comment: No: Do not add to previous drawPerformed By: #### 53023, 80519, 30711, 50702, 29881 #### [facility] [address] [place] [address], USASodium [Moles/Vol]135 mmol/AKck877-386Xkj Wayne HospitalComment on above:Order Comment: No: Do not add to previous drawPerformed By: #### 95873, 00684, 05673, 53887, 97967 #### [facility] [address] [place] [address], USAUrea nitrogen [Mass/Vol]18 mg/dLNormal7-25The Wayne HospitalComment on above:Order Comment: No: Do not add to previous drawPerformed By: #### 31672, 32260, 38426, 86747, 64538 #### [facility] [address] [place] [address], [facility] HOSPITALCBC COMPLETE BLOOD COUNTon 60-80-7029Noqdqkxpqaf distribution width (RBC) [Ratio]12.9 %Sfqxie35.5-15.0The Wayne HospitalComment on above:Order Comment: No: Do not add to previous draw Performed By: #### 43997, 62316, 25969, 71993, 99218 #### [facility] [address] [place] [address], USAHematocrit (Bld) [Volume fraction]50.6 %High39.0-50.0The Wayne HospitalComment on above:Order Comment: No: Do not add to previous drawPerformed By: #### 56416, 10525, 50363, 61037, 89211 #### [facility] [address] [place] [address], [facility] HOSPITALHemoglobin (Bld) [Mass/Vol]16.1 g/xHIupjcw02.0-17.0The [facility] HospitalComment on above:Order Comment: No: Do not add to previous drawPerformed By: #### 59797, 88331, 42790, 18897, 65268 #### [facility] [address] [place] [address], [facility]USH (RBC) [Entitic mass]28.6 ozAuaqsp53.0-33.0The [facility] HospitalComment on above:Order Comment: No: Do not add to previous drawPerformed By: #### 56288, 54181, 15526, 11809, 72892 #### [facility] [address] [place] [address], [facility] HOSPITALMCHC (RBC) [Mass/Vol]31.8 g/dLLow32.0-35.0The [facility] HospitalComment on above:Order Comment: No: Do not add to previous drawPerformed By: #### 05661, 26332, 41010, 37138, 77562 #### [facility] [address] [place] [address], [facility] HOSPITALMCV (RBC) [Entitic vol]90.0 oXJstnsc81.0-98.0The [facility] HospitalComment on above:Order Comment: No: Do not add to previous drawPerformed By: #### 95093, 60990, 76512, 80298, 58889 #### [facility] [address] [place] [address], USANucleated RBC/100 WBC (Bld) [Ratio]0 %Normal0-0The Wayne HospitalComment on above:Order Comment: No: Do not add to previous drawPerformed By: #### 93935, 39023, 03226, 30685, 42639 #### [facility] [address] [place] [address], USAPLAT RFK086 10*3/wDEwdtga803-552Wsf Wayne HospitalComment on above:Order Comment: No: Do not add to previous draw Performed By: #### 36480, 67013, 25116, 14473, 71847 #### [facility] [address] [place] [address], USARBC (Bld) [#/Vol]5.62 10*6/uLNormal4.20-5.70The Wayne HospitalComment on above:Order Comment: No: Do not add to previous drawPerformed By: #### 64077, 28884, 50445, 27128, 64810 #### [facility] [address] [place] [address], USAWBC (Bld) [#/Vol]9.65 10*3/uLNormal4.00-10.60The Wayne HospitalComment on above:Order Comment: No: Do not add to previous drawPerformed By: #### 09901, 35954, 02417, 48425, 50690 #### [facility] [address] [place] [address], [facility]ITALCardiovascular Lab Reporton [id number] Lab ReportUnProtestant Deaconess Hospital [facility] MR #: [id number] Department of Physician: Madan Parsons M.D. Division of Service Date: 03/16/2019 Cardiology Birthdate: 1965 Adult Cardiovascular Room #: 3AB 005843 [facility] [address] [place], [place] [address] Cardiovascular Laboratory Report CLINICAL PRESENTATION: The patient is a 53-year-old male, who was transferred from the [facility], due to his symptoms of [...] guidance and a micropuncture access technique, a 6-[place]orean sheath was placed in the right internal jugular vein. A Clark catheter was then advanced under fluoroscopic hemodynamic monitor to the right atrium. Pressure was obtained in the right atrium, right ventricle, pulmonary artery, pulmonary capillary wedge position. Oxygen saturations drawn from the pulmonary artery and the Nanci cardiac output and cardiac index were calculated. The Clark catheter was then removed. Next, a 6-Korean Terumo Glidesheath slender was placed in the right radial artery. The radial anti-vasospasm cocktail of nitroglycerin 100 mcg was administered through the sheath. All catheter exchanges were made over the MagCardback Torque guidewire. A 5-Korean [place] catheter was used to engage the left [...] RCA is dominant. Electronically Signed by: Krys Feldman M.D. 03/25/2019 03:57 P Krys Feldman M.D. Date Dict: 03/16/2019/12:03 P/Krys Feldman M.D. Date Trans: 03/17/2019 05:03 Jhoan/bessie DN_JN:[id number] cc: Titus Villegas M.D. [address] [place] [address]AkjltrApnBethesda North HospitalMAGNESIUM BLOODon 78-60-5001Lfgnvphwk [Mass/Vol]2.2 mg/dLNormal1.9-2.7The Wayne HospitalComment on above:Order Comment: No: Do not add to previous drawPerformed By: #### 91805, 58340, 72440, 53153, 96367 #### [facility] [address] [place] [address], USAUFH HEPARIN ASSAYon [id number] HEPARIN0.30 IU/mLNormal0.30-0.70The Wayne HospitalComment on above: Result Comment: Rivaroxaban and Apixaban will interfere with the anti Xa assay used to monitor UFH and LMWH.Performed By: #### 77320, 34249, 95201, 30292, 77883 #### [facility] [address] [place] [address], USAAPTTon 60-00-8075jTEW Coag (Bld) [Time]63.7 sHigh25.0-35.0 The Wayne HospitalComment on above:Order Comment: No: Do not add to previous drawResult Comment: ALL RESULTS MUST BE INTERPRETED WITH [...] RESULT IS QUESTIONABLE IN THE PRESENCE OF HEPARIN.Performed By: #### 97652, 89685, 96602, 78030, 46307 #### [facility] [address] [place] [address], USAaPTT Coag (Bld) [Time]87.5 sCritically high25.0-35.0The Wayne HospitalComment on above:Order Comment: No: Do not add to previous drawResult Comment: ALL RESULTS MUST BE INTERPRETED WITH [...] RESULT IS QUESTIONABLE IN THE PRESENCE OF HEPARIN.Performed By: #### 59551, 82641, 47418, 21366, 10807 #### [facility] [address] [place] [address], [facility] HOSPITALCardiovascular Lab Reporton [id number] Lab ReportUnProtestant Deaconess Hospital Patient Name: ParasFormerly [facility] Jeri MR #: [id number] Department of Physician: Ilan Danielson MD Division of Service Date: 03/16/2019 Cardiology Birthdate: 1965 Adult Cardiovascular Room #: 3AB 928458 [facility] [address] [address] Cardiovascular Laboratory Report PROCEDURE: Transesophageal echocardiogram and cardioversion. INDICATION: Atrial fibrillation. PROCEDURE IN DETAIL: An informed consent was obtained from the patient after explaining indications, risks, benefits, and alternatives. The patient understood and agreed and signed the consent form. 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 [address], [place] [address]ZneixxVzgFirelands Regional Medical Center ERYTHROPOIETIN [id number] 44-51-4067COVDGPFMFUMGJA9 mU/mLNormal4-27Main Campus Medical CenterComment on above:Order Comment: << ON ADMISSION If not done in ED>> No: Do not add to previous drawResult Comment: INTERPRETIVE INFORMATION: Erythropoietin Normal serum concentrations of erythropoietin [...] may benefit from therapy with recombinant EPO ([facility] 322:[id number],1989). Performed by [employer], [address] [place] [id number] [email or web address], Jann Somers MD - Lab. [facility] HEPARIN ASSAYon 03-16-2019 UNFRACTIONATED HEPARIN0.43 IU/mLNormal0.30-0.70The Wayne HospitalComment on above:Result Comment: Rivaroxaban and Apixaban will interfere with the anti Xa assay used to monitor UFH and LMWH.Performed By: #### 70911, 52042, 85168, 98707, 05942 #### [facility] [address] [place] [address], USAUNFRACTIONATED HEPARIN0.53 IU/mLNormal0.30-0.70The Wayne HospitalComment on above:Result Comment: Rivaroxaban and Apixaban will interfere with the anti Xa assay used to monitor UFH and LMWH.Performed By: #### 14505, 33270, 76772, 17893, 91886 #### [facility] [address] [place] [address], USAAPTTon 33-94-2706eLBP Coag (Bld) [Time]74.0 sCritically high25.0-35.0The Wayne HospitalComment on above:Order Comment: No: Do not add to previous drawResult Comment: ALL RESULTS MUST BE INTERPRETED WITH [...] READ BACK BY DAKOTAH MONTANO RN AT 7578Performed By: #### 01701, 29262, 34131, 21253, 63043 #### [facility] [address] [place] [address], USAaPTT Coag (Bld) [Time]84.1 sCritically high25.0-35.0The Wayne HospitalComment on above:Order Comment: << On admission If not done in ED>> No: Do not add to previous drawResult Comment: ALL RESULTS MUST BE INTERPRETED WITH [...] READ BACK BY DAXA MONTEJO RN @ 2352 CLINICAL SIGNIFICANCE OF THE PTT RESULT IS QUESTIONABLE IN THE PRESENCE OF HEPARIN.Performed By: #### 19842, 97085, 43419, 99683, 16010 #### [facility] [address] [place] [address], USAaPTT Coag (Bld) [Time]59.2 sHigh25.0-35.0The Wayne HospitalComment on above:Order Comment: << On admission If not done in ED>> No: Do not add to previous drawResult Comment: ALL RESULTS MUST BE INTERPRETED WITH RESPECT TO BLOOD DRAWING ARTIFACT OR DILUTION ERROR OF ANTICOAGULANT AT THE TIME OF SAMPLING. THE APTT SHOULD NOT BE USED TO MONITOR UNFRACTIONATED HEPARIN THERAPY, THIS LABORATORY NO LONGER HAS AN ESTABLISHED THERAPEUTIC RANGE BASED ON THE APTT. IT IS RECOMMENDED THAT THE UFH - HEPARIN ASSAY (ANTI-XA ACTIVITY) BE USED FOR THIS PURPOSE.Performed By: #### 83446, 94084, 10390, 14145, 67340 #### [facility] [address] [place] [address], USABASIC METABOLIC PANELon 79-90-0349Pzvgrae [Mass/Vol]9.9 mg/dLNormal8.6-10.3The Wayne HospitalComment on above:Order Comment: << On admission If not done in ED>> No: Do not add to previous drawPerformed By: #### 51247, 89565, 20043, 45590, 66521 #### [facility] [address] [place] [address], USAChloride [Moles/Vol]101 mmol/XKrzhve69-272Vqd Wayne HospitalComment on above:Order Comment: << On admission If not done in ED>> No: Do not add to previous drawPerformed By: #### 98369, 08875, 06708, 85421, 65693 #### [facility] [address] [place] [address], USACO2 [Moles/Vol]25 mmol/VUpipoj97-08Lpz Wayne HospitalComment on above:Order Comment: << On admission If not done in ED>> No: Do not add to previous drawPerformed By: #### 64349, 67631, 74235, 98601, 56425 #### [facility] [address] [place] [address], USACreatinine [Mass/Vol]1.02 mg/dLNormal0.70-1.30The Wayne HospitalComment on above:Order Comment: << On admission If not done in ED>> No: Do not add to previous drawPerformed By: #### 45908, 09173, 69198, 31257, 87439 #### [facility] [address] [place] [address], USAGFR/1.73 sq M predicted among blacks MDRD (S/P/Bld) [Vol rate/Area]mL/min/{1.73_m2}Normal>60The [facility] Comment on above:Order Comment: << On admission If not done in ED>> No: Do not add to previous drawPerformed By: #### 33709, 07007, 99002, 42565, 01546 #### [facility] [address] [place] [address], USAGFR/1.73 sq M predicted among non-blacks MDRD (S/P/Bld) [Vol rate/Area]mL/min/{1.73_m2}Normal>60The [facility] Comment on above:Order Comment: << On admission If not done in ED>> No: Do not add to previous drawPerformed By: #### 09657, 44685, 84352, 40259, 70288 #### [facility] [address] [place] [address], USAGlucose [Mass/Vol]100 mg/dKEpvsix41-709Fsq Wayne HospitalComment on above:Order Comment: << On admission If not done in ED>> No: Do not add to previous drawPerformed By: #### 83063, 93502, 10151, 40559, 07056 #### [facility] [address] [place] [address], USAPotassium [Moles/Vol]4.0 mmol/LNormal3.5-5.1The Wayne HospitalComment on above:Order Comment: << On admission If not done in ED>> No: Do not add to previous drawPerformed By: #### 60892, 78170, 94177, 44959, 13580 #### [facility] [address] [place] [address], USASodium [Moles/Vol]135 mmol/RKgn834-227Cjq Wayne HospitalComment on above:Order Comment: << On admission If not done in ED>> No: Do not add to previous drawPerformed By: #### 62590, 00474, 68660, 87339, 31497 #### [facility] [address] [place] [address], USAUrea nitrogen [Mass/Vol]24 mg/dLNormal7-25The Wayne HospitalComment on above:Order Comment: << On admission If not done in ED>> No: Do not add to previous drawPerformed By: #### 50724, 94671, 24252, 63455, 86858 #### [facility] [address] [place] [address], USACBC COMPLETE BLOOD COUNTon 04-15-0059Vgdofygnrah distribution width (RBC) [Ratio]13.1 %Zgvqvz34.5-15.0The Wayne HospitalComment on above:Order Comment: << On admission If not done in ED>> No: Do not add to previous drawPerformed By: #### 00994, 56078, 36379, 42379, 14631 #### [facility] [address] [place] [address], USAHematocrit (Bld) [Volume fraction]53.6 %High39.0-50.0The Wayne HospitalComment on above:Order Comment: << On admission If not done in ED>> No: Do not add to previous drawPerformed By: #### 70014, 24720, 30447, 24391, 73183 #### [facility] [address] [place] [address], USAHemoglobin (Bld) [Mass/Vol]17.4 g/hDPrhw12.0-17.0The Wayne HospitalComment on above:Order Comment: << On admission If not done in ED>> No: Do not add to previous drawPerformed By: #### 23223, 54615, 18998, 40537, 26015 #### [facility] [address] [place] [address], [facility] (RBC) [Entitic mass]28.6 drEouflr26.0-33.0The Wayne HospitalComment on above:Order Comment: << On admission If not done in ED>> No: Do not add to previous drawPerformed By: #### 15776, 69797, 03301, 72266, 82891 #### [facility] [address] [place] [address], [facility] ALTUSHC (RBC) [Mass/Vol]32.5 g/mESqwfjs69.0-35.0The Wayne HospitalComment on above:Order Comment: << On admission If not done in ED>> No: Do not add to previous drawPerformed By: #### 81152, 21425, 71888, 33963, 62978 #### [facility] [address] [place] [address], [facility] HOSPITALMCV (RBC) [Entitic vol]88.0 bLOftuvh39.0-98.0The Wayne HospitalComment on above:Order Comment: << On admission If not done in ED>> No: Do not add to previous drawPerformed By: #### 60011, 85547, 50375, 21417, 48986 #### [facility] [address] [place] [address], USANucleated RBC/100 WBC (Bld) [Ratio]0 %Normal0-0The Wayne HospitalComment on above:Order Comment: << On admission If not done in ED>> No: Do not add to previous drawPerformed By: #### 93814, 41640, 61443, 63636, 38371 #### [facility] [address] [place] [address], USAPLAT YXL911 10*3/gMBookxj612-941Uwb Wayne HospitalComment on above:Order Comment: << On admission If not done in ED>> No: Do not add to previous drawPerformed By: #### 99373, 36123, 53355, 07351, 56703 #### [facility] [address] [place] [address], USARBC (Bld) [#/Vol]6.09 10*6/uLHigh4.20-5.70The Wayne HospitalComment on above:Order Comment: << On admission If not done in ED>> No: Do not add to previous drawPerformed By: #### 71878, 83931, 88244, 23016, 43631 #### [facility] [address] [place] [address], USAWBC (Bld) [#/Vol]10.49 10*3/uLNormal4.00-10.60The Wayne HospitalComment on above:Order Comment: << On admission If not done in ED>> No: Do not add to previous drawPerformed By: #### 53841, 84521, 79193, 77959, 77015 #### [facility] [address] [place] [address], USALIPID PROFILEon 71-00-8686Ugnlyvopnoy [Mass/Vol]140 mg/dL Ecyxkc171-659Zdw Wayne HospitalComment on above:Order Comment: << On admission If not done in ED>> No: Do not add to previous drawResult Comment: CHOLESTEROL REFERENCE RANGE: 20 YEARS AND OLDER CARDIOVASCULAR RISK Less than 200 mg/dl Low Risk 200 to 239 mg/dl Borderline Risk 240 mg/dl and greater High RiskPerformed By: #### 97936, 18521, 17831, 68305, 24219 #### [facility] [address] [place] [address], USACholesterol in HDL [Mass/Vol]38 mg/dUPvgywd22-00Iof Wayne HospitalComment on above:Order Comment: << On admission If not done in ED>> No: Do not add to previous drawResult Comment: Slight variation in normal range could be due to gender and/or age. HDL CHOLESTEROL REFERENCE RANGE: 20 years and older Cardiovascular Risk > or =60 mg/dL Desirable 40 TO 59 mg/dL Low Risk <40 mg/dL High RiskPerformed By: #### 38451, 85478, 49025, 83206, 23950 #### [facility] [address] [place] [address], USACholesterol in LDL [Mass/Vol]88 mg/dLNormal0-130The Wayne HospitalComment on above:Order Comment: << On admission If not done in ED>> No: Do not add to previous drawResult Comment: LDL IS A CALCULATION LDL IS ONLY VALID IF THE TRIG IS LESS THAN 400.Performed By: #### 33234, 54694, 06158, 90793, 15897 #### [facility] [address] [place] [address], USACholesterol.total/Cholesterol in HDL [Mass ratio]3.7 {ratio}Normal.0-4.5The Wayne HospitalComment on above:Order Comment: << On admission If not done in ED>> No: Do not add to previous drawPerformed By: #### 27285, 37987, 60201, 21273, 86153 #### [facility] [address] [address], USANON-HDL OKYGMIWXKTG659 mg/dLNormalThe Wayne HospitalComment on above:Order Comment: << On admission If not done in ED>> No: Do not add to previous drawPerformed By: #### 20642, 96277, 71008, 26679, 33825 #### [facility] [address] [address], USATriglyceride [Mass/Vol]70 mg/sVTjyfed80-547Sfp Wayne HospitalComment on above:Order Comment: << On admission If not done in ED>> No: Do not add to previous drawResult Comment: TRIGLYCERIDE REFERENCE RANGE: 20 YEARS AND OLDER CARDIOVASCULAR RISK LESS THAN 150 mg/dl LOW RISK 150 TO 199 mg/dl BORDERLINE RISK 200 mg/dl AND GREATER HIGH RISKPerformed By: #### 65335, 34160, 08951, 22179, 41953 #### [facility] [address] [address], USAVLDL CHOL14 mg/dLNormal0-40The Wayne HospitalComment on above:Order Comment: << On admission If not done in ED>> No: Do not add to previous drawPerformed By: #### 20712, 23971, 72005, 80841, 31549 #### [facility] [address] [address], USATROPONIN-Ion 03-19-4079Ecrsawtz I.cardiac [Mass/Vol]0.01 ng/mLNormal0.00-0.04The Wayne HospitalComment on above: Order Comment: << On admission If not done in ED>> No: Do not add to previous drawResult Comment: REFERENCE RANGES: 0.00 - 0.04 ng/ml NORMAL 0.05 - 0.50 ng/ml INDETERMINATE > 0.50 ng/ml CONSISTENT WITH AN M.I.Performed By: #### 60354, 87009, 37875, 51722, 19241 #### [facility] [address] [place] [address], USAUFH HEPARIN ASSAYon 09-15-3653XQJJZKCOCLXMQI HEPARIN0.62 IU/mLNormal0.30-0.70The Wayne HospitalComment on above: Order Comment: No: Do not add to previous drawResult Comment: Rivaroxaban and Apixaban will interfere with the anti Xa assay used to monitor UFH and LMWH.Performed By: #### 01553, 49515, 78340, 65528, 63145 #### [facility] [address] [place] [address], [facility] HOSPITALUNFRACTIONATED HEPARIN0.92 IU/mLCritically high0.30-0.70The Wayne HospitalComment on above:Result Comment: Rivaroxaban and Apixaban will interfere with the anti Xa assay used to monitor UFH and LMWH. RESULTS CHECKED AND CALLED. ACCURATELY READ BACK BY DAXA MONTEJO RN @ 1309Performed By: #### 53318, 91841, 38982, 02048, 10856 #### [facility] [address] [place] [address], USAUNFRACTIONATED HEPARIN0.90 IU/mLCritically high0.30-0.70The Wayne HospitalComment on above:Result Comment: Rivaroxaban and Apixaban will interfere with the anti Xa assay used to monitor UFH and LMWH. RESULTS CHECKED AND CALLED. ACCURATELY READ BACK BY DAXA MONTEJO RN @ 0822Performed By: #### 01918, 49966, 09430, 79403, 47639 #### [facility] [address] [place] [address], USAAPTTon 39-81-4677kZZP Coag (Bld) [Time]32.8 sNormal 25.0-35.0The Wayne HospitalComment on above:Order Comment: No: Do not add to previous drawResult Comment: ALL RESULTS MUST BE INTERPRETED WITH RESPECT TO BLOOD DRAWING ARTIFACT OR DILUTION ERROR OF ANTICOAGULANT AT THE TIME OF SAMPLING. THE APTT SHOULD NOT BE USED TO MONITOR UNFRACTIONATED HEPARIN THERAPY, THIS LABORATORY NO LONGER HAS AN ESTABLISHED THERAPEUTIC RANGE BASED ON THE APTT. IT IS RECOMMENDED THAT THE UFH - HEPARIN ASSAY (ANTI-XA ACTIVITY) BE USED FOR THIS PURPOSE.Performed By: #### 61778 #### [address] [place] [address], [facility] HOSPITALBNP (B-TYPE NATRIURETIC PEPTIDE)on 92-44-5390Ruaowpybtyw peptide B (Bld) [Mass/Vol]112 pg/mLHigh0-100The Wayne HospitalComment on above:Order Comment: If not done in ED No: Do not add to previous drawResult Comment: Given the appropriate clinical setting a BNP result of >100 pg/mL indicates congestive heart failure.Performed By: #### 25457, 75651 #### [address] [place] [address], [facility] HOSPITALCB W/DIFFon 06-41-4354GZB BASOPHILS0.1 10*3/uLNormal 0.0-0.2The Wayne HospitalComment on above:Order Comment: If not done in ED No: Do not add to previous drawPerformed By: #### 61127 #### [facility] [address] [place] [address], [facility] HOSPITALABS IMM GRANS0.1 10*3/uLNormal0.0-0.2The Wayne HospitalComment on above:Order Comment: If not done in ED No: Do not add to previous drawPerformed By: #### 93279 #### [facility] [address] [place] [address], [facility] HOSPITALABS NEUTROPHILS7.1 10*3/uLNormal1.6-7.6The Wayne HospitalComment on above:Order Comment: If not done in ED No: Do not add to previous drawPerformed By: #### 51243 #### [facility] [address] [place] [address], USABasophils/100 WBC (Bld)1.0 %Normal0.0-1.0The Wayne HospitalComment on above:Order Comment: If not done in ED No: Do not add to previous drawPerformed By: #### 11263 #### [facility] [address] [place] [address], USAEosinophils (Bld) [#/Vol]0.3 10*3/uLNormal0.0-0.5The Wayne HospitalComment on above:Order Comment: If not done in ED No: Do not add to previous drawPerformed By: #### 77283 #### [facility] [address] [place] [address], USAEosinophils/100 WBC (Bld)2.8 %Normal0.0-6.0The Wayne HospitalComment on above:Order Comment: If not done in ED No: Do not add to previous drawPerformed By: #### 54503 #### [facility] [address] [address], USAErythrocyte distribution width (RBC) [Ratio]13.2 %Normal 11.5-15.0The Wayne HospitalComment on above:Order Comment: If not done in ED No: Do not add to previous drawPerformed By: #### 03491 #### [facility] [address] [place] [address], USAHematocrit (Bld) [Volume fraction]53.8 %High39.0-50.0The Wayne HospitalComment on above:Order Comment: If not done in ED No: Do not add to previous drawPerformed By: #### 72305 #### [facility] [address] [place] [address], USAHemoglobin (Bld) [Mass/Vol]17.2 g/mBIndj72.0-17.0The Wayne HospitalComment on above:Order Comment: If not done in ED No: Do not add to previous drawPerformed By: #### 41487 #### [facility] [address] [place] [address], USAIMMATURE GRANS0.5 %Normal0.0-1.0The Wayne HospitalComment on above:Order Comment: If not done in ED No: Do not add to previous drawPerformed By: #### 34266 #### [facility] [address] [place] [address], USALymphocytes (Bld) [#/Vol]2.4 10*3/uLNormal1.2-4.0The Wayne HospitalComment on above:Order Comment: If not done in ED No: Do not add to previous drawPerformed By: #### 65219 #### [facility] [address] [place] [address], USALymphocytes/100 WBC (Bld)21.0 %Zzynza55.0-45.0The Wayne HospitalComment on above:Order Comment: If not done in ED No: Do not add to previous drawPerformed By: #### 22235 #### [facility] [address] [place] [address], [facility] (RBC) [Entitic mass]28.9 aoWwhyig51.0-33.0The Wayne HospitalComment on above:Order Comment: If not done in ED No: Do not add to previous drawPerformed By: #### 60506 #### [facility] [address] [place] [address], [facility] HOSPITALMCHC (RBC) [Mass/Vol]32.0 g/zMHdonbp65.0-35.0The Wayne HospitalComment on above:Order Comment: If not done in ED No: Do not add to previous drawPerformed By: #### 93942 #### [facility] [address] [place] [address], USAMCV (RBC) [Entitic vol]90.4 nAOmlefs39.0-98.0The Wayne HospitalComment on above:Order Comment: If not done in ED No: Do not add to previous drawPerformed By: #### 28122 #### [facility] [address] [place] [address], USAMonocytes (Bld) [#/Vol]1.4 10*3/uLHigh0.1-1.0The Wayne HospitalComment on above:Order Comment: If not done in ED No: Do not add to previous drawPerformed By: #### 98779 #### [facility] [address] [place] [address], QOCGJZDX87.2 %High5.0-12.0The Wayne HospitalComment on above:Order Comment: If not done in ED No: Do not add to previous drawPerformed By: #### 55790 #### [facility] [address] [place] [address], USANeutrophils/100 WBC (Bld)62.5 %Fvrysf37.0-72.0The Wayne HospitalComment on above:Order Comment: If not done in ED No: Do not add to previous drawPerformed By: #### 23428 #### [facility] [address] [place] [address], USANucleated RBC/100 WBC (Bld) [Ratio]0 %Normal0-0The Wayne HospitalComment on above:Order Comment: If not done in ED No: Do not add to previous drawPerformed By: #### 97372 #### [facility] [address] [place] [address], USAPLAT ATE716 10*3/wQBfzzvr047-709Mwo Wayne HospitalComment on above:Order Comment: If not done in ED No: Do not add to previous drawPerformed By: #### 01641 #### [facility] [address] [place] [address], USARBC (Bld) [#/Vol]5.95 10*6/uLHigh4.20-5.70The Wayne HospitalComment on above:Order Comment: If not done in ED No: Do not add to previous drawPerformed By: #### 13807 #### [facility] [address] [place] [address], USAWBC (Bld) [#/Vol]11.32 10*3/uLHigh4.00-10.60The Wayne HospitalComment on above:Order Comment: If not done in ED No: Do not add to previous drawPerformed By: #### 41657 #### [facility] [address] [place] [address], USACOMP METABOLIC PANELon [id number] [Mass/Vol]4.3 g/dL Normal3.5-5.7The Wayne HospitalComment on above:Order Comment: << On admission If not done in ED>> No: Do not add to previous drawPerformed By: #### [id number], [id number], [id number], [id number], [id number] #### [facility] [address] [place] [address], USAALKALINE [id number] Wayne HospitalComment on above:Order Comment: << On admission If not done in ED>> No: Do not add to previous drawPerformed By: #### 31127, 52268, 52087, 88808, 59751 #### [facility] [address] [place] [address], USAALT [Catalytic activity/Vol]21 U/LNormal7-52The Wayne HospitalComment on above:Order Comment: << On admission If not done in ED>> No: Do not add to previous drawPerformed By: #### 73197, 65535, 91865, 14662, 92733 #### [facility] [address] [place] [address], USAAST [Catalytic activity/Vol]26 U/TDgcrsc57-13Rla [facility] HospitalComment on above:Order Comment: << On admission If not done in ED>> No: Do not add to previous drawPerformed By: #### 82671, 25782, 11445, 32820, 64568 #### [facility] [address] [place] [address], USABilirubin [Mass/Vol]1.1 mg/dLHigh0.3-1.0The Wayne HospitalComment on above:Order Comment: << On admission If not done in ED>> No: Do not add to previous drawPerformed By: #### 21923, 55384, 85933, 29712, 66862 #### [facility] [address] [place] [address], USACalcium [Mass/Vol]10.5 mg/dLHigh8.6-10.3The Wayne HospitalComment on above:Order Comment: << On admission If not done in ED>> No: Do not add to previous drawPerformed By: #### 26582, 02969, 47051, 56634, 35621 #### [facility] [address] [place] [address], USAChloride [Moles/Vol]98 mmol/UVmviws74-931Ogw [facility] HospitalComment on above:Order Comment: << On admission If not done in ED>> No: Do not add to previous drawPerformed By: #### 39305, 90937, 31514, 04616, 40731 #### [facility] [address] [place] [address], USACO2 [Moles/Vol]31 mmol/TYbjgin91-44Pbn [facility] HospitalComment on above:Order Comment: << On admission If not done in ED>> No: Do not add to previous drawPerformed By: #### 77542, 65866, 55931, 78880, 56460 #### [facility] [address] [place] [address], USACreatinine [Mass/Vol]1.36 mg/dLHigh0.70-1.30The Wayne HospitalComment on above:Order Comment: << On admission If not done in ED>> No: Do not add to previous drawPerformed By: #### 98148, 26656, 81605, 32276, 47275 #### [facility] [address] [place] [address], USAGFR/1.73 sq M predicted among blacks MDRD (S/P/Bld) [Vol rate/Area]mL/min/{1.73_m2}Normal>60[facility] Comment on above:Order Comment: << On admission If not done in ED>> No: Do not add to previous drawPerformed By: #### 96017, 36879, 32492, 88409, 06654 #### [facility] [address] [place] [address], USAGFR/1.73 sq M predicted among non-blacks MDRD (S/P/Bld) [Vol rate/Area]55 ml/min/1.73sq mAbnormal>60The [facility] HospitalComment on above:Order Comment: << On admission If not done in ED>> No: Do not add to previous drawPerformed By: #### 89800, 42512, 79542, 16190, 38707 #### [facility] [address] [place] [address], USAGlucose [Mass/Vol]81 mg/nSMiuodl55-807Btz Wayne HospitalComment on above:Order Comment: << On admission If not done in ED>> No: Do not add to previous drawPerformed By: #### 96052, 28594, 22929, 15537, 40433 #### [facility] [address] [place] [address], USAPotassium [Moles/Vol]3.8 mmol/LNormal3.5-5.1The Wayne HospitalComment on above:Order Comment: << On admission If not done in ED>> No: Do not add to previous drawPerformed By: #### 03757, 13065, 85170, 72445, 32365 #### [facility] [address] [place] [address], USAProtein [Mass/Vol]7.4 g/dLNormal6.0-8.3The Wayne HospitalComment on above:Order Comment: << On admission If not done in ED>> No: Do not add to previous drawPerformed By: #### 89772, 78705, 51349, 65576, 88807 #### [facility] [address] [place] [address], USASodium [Moles/Vol]138 mmol/CFpeuqf901-775Vys [facility] HospitalComment on above:Order Comment: << On admission If not done in ED>> No: Do not add to previous drawPerformed By: #### 43662, 27819, 86709, 36593, 61534 #### [facility] [address] [place] [address], USAUrea nitrogen [Mass/Vol]26 mg/dLHigh7-25The [facility] HospitalComment on above:Order Comment: << On admission If not done in ED>> No: Do not add to previous drawPerformed By: #### 90491, 29171, 47134, 89801, 03095 #### [facility] [address] [place] [address], USAFREE T4on 90-61-3878Xnys T4 [Mass/Vol]1.18 ng/dLNormal 0.71-1.85The Wayne HospitalComment on above:Order Comment: If not done in ED No: Do not add to previous drawPerformed By: #### 52766, 51341, 51653, 64419, 17008 #### [facility] [address] [place] [address], USAHEMOGLOBIN A1Con 00-42-3820XiF3g (Bld) [Mass fraction]103 mg/kNQupfpq86-593Ekx Wayne HospitalComment on above:Order Comment: If not done in ED No: Do not add to previous drawPerformed By: #### 39972, 85496 #### [facility] [address] [place] [address], AULAdR6l (Bld) [Mass fraction]5.2 %Normal4.0-6.0The Wayne HospitalComment on above:Order Comment: If not done in ED No: Do not add to previous drawPerformed By: #### 39890, 04711 #### [facility] [address] [place] [address], USAHistory and Physicalon 07-25-9018Nxhrljf and PhysicalMR#: [id number] [facility] Pt. Name: Argelia Crain Admitted: 03/14/2019 Date of : 1965 Attending Physician: Dimitry Lyles M.D. Room #: B 701033 Discharge Date: HISTORY AND PHYSICAL CHIEF COMPLAINT: Atrial fibrillation and bilateral lower extremity swelling. HISTORY OF PRESENT ILLNESS: Mr. Whitt is a 53-year-old male with the past medical history of depression and GERD, who was transferred from [facility] for atrial fibrillation and congestive heart failure. The patient states that he has been complaining of progressively worsening bilateral lower extremity swelling for the last four months. The patient states that he has never had bilateral lower extremity swelling like this in the past. The patient was [facility] by a [facility] and was sent to [facility]. At [facility], EKG showed atrial fibrillation with RVR. Chest x-ray showed bilateral pulmonary venous congestion. The patient was admitted for one day at [facility] and was started on metoprolol 75 mg twice a day and Eliquis. The patient was also diuresed with Lasix and put out around 2.8 L of urine. An echocardiogram was done at [facility], which showed a reduced ejection [...] drug use. 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 FAMILY HISTORY: Father [...] he received metoprolol 75 mg b.i.d. at [facility]. His heart rate is currently in the 80s to 90s. Will start him on metoprolol 12.5 mg BID. The patient received a dose of Eliquis today this morning at [facility], will discontinue Eliquis and start him on heparin drip in the evening around 10 p.m. His TSH and T4 were normal at [facility]. If the patient does not convert back to normal sinus rhythm, the patient will have GERMAN/cardioversion on Saturday. 2. Acute systolic CHF exacerbation: An echocardiogram at [facility] showed reduced ejection fraction. The patient was diuresed with Lasix 40 mg IV twice a day at [place] and diuresed around 2.8 L. Will start [...] Lyles M.D. Date Trans: 03/14/2019 01:33 P/bessie TORRES_JN:[id number] Regional Medical CenterMAGNESIUM BLOOD on 08-05-3891Wbruktbld [Mass/Vol]2.4 mg/dLNormal1.9-2.7The Wayne HospitalComment on above:Order Comment: << ON ADMISSION If not done in ED>> No: Do not add to previous drawPerformed By: #### 54826, 90168, 74561, 01062, 93686 #### [address] [address], USAPORTABLE CHEST 1 VIEWon 64-16-0877PMLATGTA CHEST 1 VIEW [facility] Department of Radiology [address] [place] [address] Patient Name: ARGELIA CRAIN : 1965 Sex: M Age: Race: NA Pt. Location: [address] [place] [address] Patient Status: I Ordered Date: 03/14/2019 10:35:00 AM Completed Date: 03/14/2019 11:59 AM Requesting Provider: DIMITRY LYLES Attending Provider: PATRIA GALARZA Report Copy To: Signs & Symptoms: Shortness of Breath History: Patient history not available Comments: R/O Pulmonary Edema Exam: PORTABLE CHEST 1 VIEW PORTABLE CHEST 1 VIEW 03/14/2019 11:59 AM [...] findings. Electronically signed by:Yenni Osuna. Transcribed by: [email or web address], User Resident: KAREEM LIAO Electronically Signed by: YENNI OSUNA @ 03/14/2019 04:53 PM I personally read this/these film(s) with this residentFirelands Regional Medical CenterComment on above:Order Comment: R/O Pulmonary Edema TROPONIN-Ion 72-57-5165Fmcaesif I.cardiac [Mass/Vol]0.00 ng/mLNormal0.00-0.04The Wayne HospitalComment on above:Order Comment: << On admission If not done in ED>> No: Do not add to previous drawResult Comment: REFERENCE RANGES: 0.00 - 0.14 ng/ml NEGATIVE 0.15 - 0.25 ng/ml INDETERMINATE > 0.25 ng/ml INDICATIVE OF AN M.I.Performed By: #### 83410, 06017, 25080, 07035, 13019 #### [facility] [address] [place] [address], USATroponin I.cardiac [Mass/Vol]0.01 ng/mLNormal0.00-0.04The [facility] HospitalComment on above:Order Comment: No: Do not add to previous drawResult Comment: REFERENCE RANGES: 0.00 - 0.04 ng/ml NORMAL 0.05 - 0.50 ng/ml INDETERMINATE > 0.50 ng/ml CONSISTENT WITH AN M.I.Performed By: #### 15882, 49357, 81855, 65925, 30391 #### [facility] [address] [facility] [place] [address], QIVEFP2jz 98-97-7994MRQ 3RD GENERATION2.05 uIU/mLNormal 0.34-5.60The Wayne HospitalComment on above:Order Comment: TSH3 with Reflex canceled. TSH3 ordered.Performed By: #### 90680, 16267, 10489, 43408, 17015 #### [facility] [address] [place] [address], [facility]OSPITALCB With Platelet No Differentialon 31-39-8509Obqikxpltdl distribution width Auto Ratio (RBC)13.9 %Mhxsbd78.5-14.5[facility] CenterErythrocytes (RBC)5.34 10*6/uLNormal4.70-6.10[facility] Hematocrit (HCT)49.8 %Xgzjnh77.0-52.0[facility] CenterHemoglobin mass conc (Bld)16.4 g/uAXttgvo38.0-18.0[facility] CenterMCH30.8 pg Vhpwhu53.0-31.3MYampa Valley Medical CenterMCHC mass conc (RBC)33.0 %Normal 33.0-37.0[facility] CenterMCV93.3 kCOszeof00.0-100.0[facility] CenterPlatelets281 10*3/eZKccgsj804-277TczhvPioneers Medical CenterWBC (Leukocytes)9.3 10*3/uLNormal4.8-10.8[facility] CenterComprehensive Metabolic Panelon 33-46-7286Xieczid aminotransferase (ALT)20 U/LNormal0-41[facility] CenterAlbumin4.6 g/dLNormal3.9-4.9[facility] Alkaline phosphatase (ALP)56 U/RRcxtup52-569TlrvfPioneers Medical CenterAnion gap18 mmol/LCritically high7-13[facility] CenterAspartate aminotransferase (AST)18 U/LNormal0-40[facility] CenterBilirubin (total)0.7 mg/dLNormal0.0-1.2MYampa Valley Medical CenterCalcium9.4 mg/dLNormal 8.6-10.2MYampa Valley Medical CenterChloride103 mmol/AHfrckf94-779KehxkPioneers Medical CenterCO220 mmol/RWka66-23HgyxyPioneers Medical Center Creatinine0.78 mg/dLNormal0.70-1.20[facility] CentereGFR (black) mL/min/{1.73_m2}Normal>60[facility] Medical CenterComment on above:Result Comment: >60 mL/min/1.73m2 EGFR, calc. for ages 18 and older using theMDRD formula (not corrected for weight), is valid for stablerenal function.eGFR (MDRD)mL/min/{1.73_m2}Normal>60[facility] CenterComment on above: Result Comment: >60 mL/min/1.73m2 EGFR, calc. for ages 18 and older using theMDRD formula (not corrected for weight), is valid for stablerenal function. Globulin2.7 g/dLNormal2.3-3.5[facility] CenterGlucose mass conc91 mg/dQSfoloa16-134QhylpPioneers Medical CenterPotassium molar conc4.1 mmol/L Normal3.5-5.1MYampa Valley Medical CenterProtein7.3 g/dLNormal6.4-8.1MConejos County Hospitalodium141 mmol/TRnulgl738-505DemmpPioneers Medical CenterUrea evpmkmab19 mg/dLNormal6-20[facility] CenterHemoglobin A1c on 62-83-0142Uugqbbrgxo A1c/Hemoglobin.total mass fraction (Bld)5.5 %Normal 4.8-5.9[facility] CenterLipid Panelon 61-90-8642Vuedvsiaoqi491 mg/dL Normal0-199[facility] Medical CenterComment on above:Result Comment: ATP III Cholesterol classification is Desirable.HDL Tjarhgjlkyn03 mg/qHJctymo91-76GmjziPioneers Medical CenterComment on above:Result Comment: ATP III HDL Cholesterol Classification is Desirable.Expected Values:Males: >55 =No Risk 35-55 = Moderate Risk <35 = High RiskFemales: >65 = No Risk 45-65 = Moderate Risk <45 = High RiskNCEP Guidelines: Third Report January 2001>59 = negative risk factor for CHD<40 = major risk factor for CHDLDL Dswhcluuouo59 mg/dLNormal0-129[facility] Medical CenterComment on above:Result Comment: ATP III LDL Classification is Optimal.Jwohgksenrde400 mg/dLNormal0-200[facility] Medical CenterComment on above:Result Comment: ATP III Triglycerides Classification is Normal.Prostate Specific Ag Screenon 25-07-1602Yacpuadk Specific Ag Screen2.25 ng/mLNormal0.00-3.89[facility] Medical CenterComment on above:Result Comment: When the Total PSA is between 3.00 and 10.00 ng/mL, considerrequesting a Free PSA to aid in diagnosis.TSH w/out Reflexon 38-55-4522Hpctjij stimulating hormone (TSH)2.550 uIU/mLNormal0.270-4.20[facility] Medical CenterThyroxine Freeon 59-97-4394Pqluvfmqq Free1.54 ng/dLNormal0.93-1.70[facility] Vital Signs Date TimeVital SignValuePerforming FpmwoodsqBxkmrpcc93-55-3775 16:35-0500Body joqdwk939.5 cmNicole Buddy DO Work Phone: [facility] InstituteLhgqowltbp02-73-8283 16:35-0500Body mass index (BMI) [Ratio]34.37 kg/v7Gxzrvg Buddy DO Work Phone: [facility] InstituteQktixxniup49-42-4759 16:35-0500Body wkofpo336.74 kgNicole Buddy DO Work Phone: [facility] InstituteXjmssxghbz38-36-9917 16:35-0500Diastolic blood emzydops61 mm[Hg]Everette Buddy DO Work Phone: [facility] InstituteCejeosdzmk39-57-6230 16:35-0500Heart rate84 /min Everette Buddy DO Work Phone: [facility] InstituteDmlxtglden56-83-9361 16:35-8396NkT2% (BldA) [Mass fraction]95 %Everette Buddy DO Work Phone: [facility] InstituteZjvwtbgdrm30-23-0009 16:35-0500Systolic blood hgvyethp530 mm[Hg]Everette Buddy DO Work Phone: [facility] InstituteWkxkvpawwp16-17-1425 15:41-0400Respiratory rate16 /Alfred Rangel Wayne HospitalComment on above: Performed By: #### 75129, 55603, 74740, 54297, 79591 #### [facility] [address] [place] [address], VDL26-64-0121 06:18-0400Respiratory rate16 /minDOUGLAS [facility] Cincinnati NorthComment on above:Performed By: #### 91903, 17359, 16065, 56826, 10414 #### [facility] [address] [place] [address], FZZ52-27-0488 15:18-0400Respiratory rate16 /minDOUGLAS [facility] Cincinnati NorthComment on above:Performed By: #### 94287, 69327, 51562, 82750, 64878 #### [facility] [address] [place] [address], AJT15-79-3410 06:10-0400Respiratory rate16 /minDOUGLAS [facility] - Cincinnati NorthComment on above:Performed By: #### 64526, 09372, 94648, 86866, 39111 #### [facility] [address] [place] [address], NZQ03-03-0336 01:22-0400Respiratory rate16 /minDOUGLAS [facility] NorthComment on above:Performed By: #### 45174, 42170, 33975, 77599, 49046 #### [facility] [address] [place] [address], VTO46-61-7115 22:02-0400Respiratory rate16 /minDOUGLAS [facility] Cincinnati NorthComment on above:Performed By: #### 86765 #### [facility] [address] [place] [address], [id number] 20:06-0400Respiratory rate16 /minDOUGLAS [facility] Cincinnati NorthComment on above:Performed By: #### 16642, 83402 ####[facility] [place] [address], GYZ86-96-3739 18:48-0400Respiratory rate16 /minDOUGLAS HOS[facility] Southe Wayne HospitalComment on above:Order Comment: R/O Pulmonary Edema Performed By: #### 92615, 91347 ####[facility] [place] [address], [facility] Encounters Encounter DateEncounter TypeCare ProviderFacilityStart: 20-66-0506Yvzxewkfuw and management of inpatientGEWYGE [facility] Start: 64-60-5211Ugcqvqwyru and management of inpatientSUMMIT HEALTHCARE REGIONAL MED[facility] CENTERGE [facility] Hospitaltart: 82-11-8463Vbifulqgld and management of inpatientSUMMIT HEALTHCARE REGIONAL MEDICAL CENTERGE [facility] Centertart: 07-26-2025 ambulatoryHocking Valley Community Hospitaltart: 07-26-2025 ambulatoryHocking Valley Community Hospitaltart: 07-26-2025 End: 94-50-3725Vqbdpqlkrk and management of inpatientHocking Valley Community Hospitaltart: 04-26-2025 End: 35-97-4016kpmsqfppipGLCFRJUniversity Hospitals Portage Medical Center Start: 01-04-2025 End: 72-36-7514lbjshrsjgvOUFVKCUniversity Hospitals Portage Medical Center Start: 11-09-2024 End: 74-46-0745Kplmxd outpatient new 45 minutesNicole Buddy DO Work Phone: aNA BELLEVUEComment on above:ZULEIMA (obstructive sleep apnea) (Primary Dx); Shift work sleep disorder; Hypersomnia; Snoring; Obesity due to excess calories, unspecified class, unspecified whether serious comorbidity presentStart: 11-09-2024 End: 07-02-5974nmnmelizmsRMSSXG DANNERNot AvailableStart: 11-09-2024 End: 53-06-0751Stexwq flowsheetNicole Buddy DO Work Phone: aNA BELLEVUEStart: 11-09-2024 End: 55-15-0574Bsjkdn ceciliaheetEverette Goodwin DO Work Phone: aNA BELLEVUEStart: 02-05-2023 End: 93-26-1186mpgaocfgpmAX VIET EMERSONRBELFacility:Q4Tvnzq: 12-19-2022 End: 49-45-3625kqahgjlqqlSP VIET EMERSONRBELFacility:A1Nkzgq: 11-09-2022 End: 74-53-7797sbyyjvopurMT VIET EMERSONRBELFacility:V0Ojgnd: 09-14-2022 End: 30-84-5691juhlxjiskhHDGSUXV TUCKERFacility:W2Hqxxm: 06-27-2022 End: 00-18-2706pptdthjgmkUDRFFTC TUCKERFacility:S3Msvzz: 06-13-2022 End: 06-49-6411nvfbntwxtrJR MELIDA V WESTFacility:K6Klckr: 06-07-2022 End: 88-21-5538cuetyzqozrWJ MELIDA V WESTFacility:T7Yjscx: 06-01-2022 End: 58-62-9649jhtlsnsguoUS MELIDA V WESTFacility:W2Joeqp: 79-87-2099swftswgglhCE TITUS MAIY .Facility:M0Pqrdj: 05-25-2022 End: 14-28-3594tfrhrdeipxOY MELIDA V WESTFacility:A3Wxovx: 05-14-2022 End: 22-01-2672wpcpaalqltQP MELIDA V WESTFacility:S4Zkrvs: 05-10-2022 End: 17-11-6374qlbroxvmkaMT MELIDA V WESTFacility:Y6Tfdzm: 05-04-2022 End: 81-94-1032tokcvvtcgkAI MELIDA V WESTFacility:F8Xsmsj: 04-27-2022 End: 66-26-2962nlejexbzdwEZ MELIDA V WESTFacility:H8Rxxkk: 34-89-4571Rsqlqwtsh for general adult medical examination without abnormal findingsDR TITUS HOY . [facility]Start: 04-05-2022 End: 39-22-5547gzsktikajwPS TITUS HOY .Facility:M5Psyej: 04-05-2022 End: 00-43-6980Qqshvfcto for general adult medical examination without abnormal findingsDR TITUS VILLEGAS .Facility:F0Dffwg: 03-08-2022 End: 63-06-0492obieeewznsKU MELIDA Lamascility:Y8Eivpu: 05-12-2019 End: 65-70-5444Mblxtoj encounter procedureMOSHRIManjit TRIVEDI ALAMIRFacility:[facility] CENTERtart: 03-14-2019 End: 00-64-5728Awkyqmycxf and management of inpatientDOUGLAS HOFernandaFacility:[facility] Procedures DateProcedureProcedure DetailPerforming ClinicianStart: 27-55-1403GFJ screening DR MELIDA Mejia on above:Performed By: #### PSASC ####[facility] Amlefdglpv[address] [place] [address]Dr. Kaleighlan ChangStart: 18-09-1789QLAKTWTRAWS OF CONDUCTION MECHANISM, OPEN APPROACHSAQIB MASROORStart: 44-40-4881YUSYMGQT OF MITRAL VALVE, OPEN APPROACHSAQIB MASROORStart: 03-19-2019 INSERTION OF ENDOTRACHEAL AIRWAY INTO TRACHEA, VIA OPENINGTHOMAS A ROONEYStart: 49-97-8859CMDREFY OF ARTERIAL SATURATION, PERIPHERAL, PERC APPROACHSAQIB MASROOR Start: 91-33-0819TITJEYGFL OF SCARLET WITH EXTRALUM DEV, OPEN APPROACHSAQIB MASROOR Start: 01-86-6822Bldhbeixfed of Cardiac Output, ContinuousSAQIB MASROORStart: 67-55-3237BRTSLT ATRIAL SEPTUM, OPEN APPROACHSAQIB MASROORStart: 03-19-2019 RESPIRATORY VENTILATION, 24-96 CONSECUTIVE HOURSTHOMAS A ROONEYStart: 03-19-2019 SUPPLEMENT MITRAL VALVE WITH SYNTH SUB, OPEN APPROACHSAQIB MASROORStart: 73-63-1594UYBEZEYQNJRPFKF OF RIGHT AND LEFT HEART, TRANSESOPHAGEALSAQIB MASROOR Start: 76-76-3228Buibysvf screenTITUS ONEILLYComment on above:Performed By: #### 51194, 15338, 12201, 30772, 25067 #### [facility] [address] [place] [address], USAStart: 57-31-8273JIVAKVV CARDIAC SAMPL \T\ PRESSURE, BILATERAL, PERCRAJESH GUPTAStart: 07-55-4210XQSTWMQBPZB OF LEFT HEART USING OTHER CONTRASTRAJESH GUPTAStart: 10-06-9572MYEKXNCXACR OF MULTIPLE CORONARY ARTERIES USING OTH CONTRASTRAJESH GUPTAStart: 77-09-6523Tcohmtblgfj of Cardiac Rhythm, SingleMOSHRIK ABD ALAMIR Plan of Treatment DateCare ActivityDetailAuthorStart: 11-09-2024 End: 03-81-7028Vqngjdb encounter udgpxajab13/10/2025 4:30 PM EST Office Visit JERAMIE HENAOEVUE [address] [place] [id number] Everette Goodwin DO [address] [place] [address] ArrivedJERAMIE MCGEEComment on above:ArrivedStart: 16-82-5820Tkkapuaub vaccinationInfluenza Vaccine (#1)[facility]OM[facility] HealthcareStart: 88-11-2232Mzhqoqqgk for malignant neoplasm of colonNONH Healthcare Immunizations Immunization DateImmunizationNotesCare DahkbsptDnjnamfr21-29-1982wiuulzwmn virus vaccine, unspecified formulationNicsamra Goodwin DO Work Phone: [facility] Healthcare Payers DatePayer CategoryPayerPolicy [id number] Cancer Center [id number] .1.357265.3.57[id number] 2.16.840.1.969210.3.57[id number] 2.16840.1.656380.3.579.2.24591-13-4030Snazfgm8264667 2.16840.1.304996.3.579.[id number] 2.840.1.074359.3.579.2.21340-20-4525Pscnguu1549036 2.840.1.215411.3.579.[id number] 2.0.1.122395.3.579.2.88438-73-2475Fwzbyab9474321 2.0.1.128726.3.579.2.54798-23-8337Vhifelt7090973 2.0.1.321795.3.579.2.85554-02-7143Aoiymos1144078 2.0.1.718659.3.579.2.28973-84-4124Olkgghh0699288 2.0.1.957481.3.579.2.24802-31-2707Evyuvzd3964586 2.0.1.137798.3.579.2.27060-66-0128Srznmgq7189323 2.0.1.422533.3.579.2.66920-00-2361Kbcqmmy0502655 2.0.1.399609.3.579.2.08514-26-9662Jpsdnok3337624 2.0.1.480397.3.579.2.66171-26-7135Osdtvxm3262944 2.840.1.074828.3.579.2.37927-99-0620Qpjrbip5914414 2.840.1.964546.3.579.2.97534-92-4553Svdjayx9065620 2..840.1.770858.3.57[id number] 2.16.840.1.226481.3.579.2.579315-92-8331Zexc-[id number] Social History DateTypeDetailFacilityTobacco smoking status NHISTobacco smoking consumption unknownNONH HealthcareStart: 81-30-2760Tnu assigned at birthNot on fileST. MARK'S [facility]ITAL HealthcareStart: 60-74-8240Rzkpht identityNot on [facility] HealthcareStart: 10-51-7060Fbpbymv smoking status NHISNever smoked tobaccoST. MARK'S HOSPITAL HealthcareStart: 13-30-7838Refwcrc use and exposureSmokeless tobacco non-userNONH Healthcare Start: 27-39-6541Atdxiig of Social functionNONH Healthcare Progress note 07-27-2025 Note Date & YuyjWalrKiixxomt69-29-1197 NoteAdult Nutrition Assessment: Name: Tracie Crain Date: 1965 Date of Visit: 07/27/25 Admission Dx: Atrial septal defect [Q21.10] Heart failure with improved ejection fraction (HFimpEF) (CMS/HCC) [I50.20] Chronic right-sided congestive heart failure (CMS/HCC) [I50.812] Pulmonary hypertension (CMS/HCC) [I27.20] Nonrheumatic tricuspid valve regurgitation [I36.1] ASD (atrial septal defect) [Q21.10] Reason for assessment: high risk Information obtained from: patient, family, and medical record Medical History[1] Current Medications: aspirin, 81 mg, oral, Daily bumetanide, 3 mg, oral, TID clopidogrel, 75 mg, oral, Daily ferrous sulfate, 325 mg, oral, BID hydroCHLOROthiazide, 25 mg, oral, Daily levothyroxine, 75 mcg, oral, Daily before breakfast liothyronine, 5 mcg, oral, Daily before breakfast metoprolol succinate XL, 50 mg, oral, Daily potassium chloride CR, 20 mEq, oral, TID with meals sertraline, 50 mg, oral, Daily spironolactone, 25 mg, oral, TID Labs: 0 Lab Value Date/Time POCGLU 115 (H) 03/27/2019 1156 BUN 14 05/06/2024 0333 CREATININE 0.91 05/06/2024 0333 NA 137 05/06/2024 0333 K 3.5 05/06/2024 0333 PHOS 2.6 03/25/2019 0410 MG 2.3 03/27/2019 0506 HGB 13.8 05/06/2024 0333 HGB 13.3 03/19/2019 1440 WBC 10.27 05/06/2024 0333 Allergies: Allergies[2] Nutrition Problems: Swallowing Assessment: pt denies swallowing difficulty Mouth: pt denies chewing difficulty Abdominal Assessment: Pt reported some nausea last night Appetite: good Cognition: A&O x 4 Nutrition Deficits Prior to Admission: pt denies 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 Skin Integrity: catheter entry sites on right and left legs Edema: BLE +1 Other Factors: 07/27/25: scheduled ASD repair/closure Nutrition Data/Clinical Indicators of Nutrition Status: Height: 190.5 cm (6' 3 ) Weight: 135 kg (298 lb 9.6 oz) BMI (Calculated): 37.32 Wt Readings from Last 10 Encounters: 07/27/25 135 kg (298 lb 9.6 oz) 04/26/25 (!) 140 kg (308 lb) 01/04/25 (!) 140 kg (309 lb) 06/26/24 (!) 142 kg (313 lb) 05/05/24 (!) 147 kg (324 lb 15.3 oz) 03/26/24 (!) 144 kg (317 lb) 01/24/24 (!) 148 kg (325 lb 6.4 oz) 10/23/23 (!) 147 kg (324 lb) 04/08/23 (!) 145 kg (320 lb) 02/11/23 (!) 144 kg (318 lb) IBW: 89.1 kg Weight change: Documented weight history shows weight loss of 5 kg over the past 3 months, which could be related to fluid. Pt denied any recent weight changes % weight change: 3.6% Severity of weight change: not clinically significant Nutrition Assessment: Pt denied any recent changes in appetite or intake. Will eat 3 meals a day, but what he eats varies, as his work schedule changes and sometimes he will work days and other times he will work nights. Will sometimes cook meals at home and tries to eat salads. Pt reported that he has cut done on his salt intake. Dietary Orders (From admission, onward) Start Ordered 07/27/25 08 Regular Diet Heart Healthy/HTN, CABG,Stroke, (2gNA, low fat, low cholesterol) Diet effective now Question Answer Comment Room Service? Yes Fat restriction: Heart Healthy/HTN, CABG,Stroke, (2gNA, low fat, low cholesterol) 07/27/25825 Nutrition Risk: Low Nutrition Diagnosis: No nutrition diagnosis at this time Malnutrition Assessment: Per Registered Dietitian assessment and evaluation, patient does not currently meet criteria OR there is not enough information to support the diagnosis of malnutrition per the clinical criteria set by the Academy of Nutrition and Dietetics (AND) and the [place] Society of Enteral and Parenteral Nutrition (ASPEN). Nutrition Education: Diet literature: Heart Failure Nutrition Therapy (explained CHF-diet relationship, discussed and reviewed reading nutrition labels, recommended daily sodium intake of no more than 2,000 mg/d (or 1~ tsp salt/d), encouraged preparing more meals at home, recommended decreasing frequency of eating out/take-out foods, and encouraged avoiding or limiting salty snacks/processed foods/frozen foods ) Expected compliance/patient understanding: good Teach back method: pt verbalized understanding Time spent: 15 minutes Treatment Plan: Continue heart healthy diet Monitor intakes Continue to review diet education as able Daily weights Monitor for unintentional weight changes Goals: Adequate po intakes (kcals and protein); >75% meals Understanding of nutrition education/adherence to diet recommendations No significant unintentional wt loss To reach the Clinical Dietitian, please utilize [employer] chat Saturday-Saturday from 8AM-4PM or call extension [phone]. For weekends (Saturday-Saturday) and holidays, the Clinical Dietitian can be reached via pager ([phone]) from 9AM-3PM. The Clinical Nutrition Department is unable to respond to [employer] chat messages on Sundays and hols. [1] Past Medical History: Diagnosis Date Atrial fibrillation (CM (more content not included)...[facility] Progress note 07-27-2025 Note Date & [id number] Note07/27/25 1203 Admission Assessment Questions Verify insurance with patient Yes Do you understand medical disease or what brought you into the hospital? Yes Who is your current PCP? Titus Villegas Can I schedule a follow up appointment for you at the time of discharge? Yes Does patient qualify for Complex Care Management Enrollment? No Do you understand why you are taking your current medications? Yes Are you taking your medications as prescribed? Yes Did patient provide teach back? Yes Pharmacy Bedside Delivery Status Interested Does the patient have a case making machine operator assigned to them through their insurance? No Living Arrangement (Current/Prior to Hospitalization) Private residence Does the patient have history of HHC or SNF? No Assistive Device Not applicable Patient's goal for discharge return home with Was patient reminded that goal for discharge is 11am? Yes Does the patient have transportation at discharge? Yes () Type of Residence Private residence Is PT/OT appropriate? No Is PT/OT ordered? No Is SW consult appropriate? Yes Is SW consult ordered? No Do you understand the benefits of MyChart? Yes Were you able to send link and activate [employer]? [employer] already active [facility] Progress note 07-26-2025 Note Date & [id number] NoteS/p ASD closure needs plavix prescription. Diagnoses and all orders for this visit: S/P percutaneous closure of atrial septal defect - clopidogrel (Plavix) 75 mg tablet; Take 1 tablet (75 mg) by mouth in the morning.[facility] Clinical Note 07-26-2025 Note Date & [id number] NotePatient: Tracie Crain Procedure Information Date/Time: 07/26/25 0830 Procedures: Atrial septal defect closure - PC pending Left heart cath Right heart cath Coronary angiography Location: [facility] / [facility] (Cath) Providers: Viet Salas MD Clinical information reviewed: Allergies Meds OB Status Physical Exam Airway Mallampati: II TM distance: >3 FB Neck ROM: full Cardiovascular - normal exam Dental Pulmonary - normal exam Neurological Abdominal - normal exam Anesthesia Plan ASA 2 other (Conscious sedation) Anesthetic plan and risks discussed with patient. Use of blood products discussed with patient who consented to blood products. Plan discussed with attending. [facility]-26-2025 Note Date & [id number] NoteUT Cardiology - [facility] Subjective Tracie Crain is a 60 [...] Severe mitral regurgitation. Eviden (more content not included)...[facility] Progress note 01-04-2025 Note Date & [id number] NoteUT Cardiology - [facility] Subjective Tracie Crain is [...] the patient was conve (more content not included)...[facility] History of Present illness Narrative 11-09-2024 Note Date & [id number] History of Present illness Narrative* Everette Goodwin DO - 11/09/2024 4:30 PM EST Images from the original note [...] 4.5 years old. He got it from [facility] which is now [facility]. NO other new [...] from some weight loss. He denies any othernew issues since we have seen him in [...] was counseled on the risks of stroke, OK, and sudden with ZULEIMA, along with the [...] for a new [facility]-29[facility]2020 Note Date & [id number] NoteChief Complaint referral for nevus of concern HPI [...] referred for enlarging lesion left lower back; soreat times, no bleeding or ulceration, no pigmentation change; no personal h/o skin cancer; on baby asa daily, no NSAIDs. Review of Systems PHQ Score Initial Depression Screen Score: 0 ROS - Provider Constitutional: no fever, no sweats, no weight loss. Eyes: no glasses, no blurred vision, no visual loss. ENMT: no dentures, no hoarseness, no swallowing difficulties, no hearing loss, no ear infection(s),no nose bleeds. Cardiovascular: normal blood pressure, no [...] in the office for definitive diagnosis and treatment;informed consent obtained. 2. BMI 36.0-36.9,adult (Z68.36: Body [...] virus vaccine, inactivated - Not Given Patient RefusesParkview Health Montpelier HospitalComment on above:Result Comment: Electronically Signed By: BONG ADKINS, Tracie Torrez.br\Date and Time Signed: 11/29/20 14:05 EST Evaluation note Note Date & TypeNoteFacilityEvaluation note* Diagnosis ZULEIMA (obstructive sleep apnea)- Primary Obstructive [...] Hospital Course Note MR#: [id number] [facility] Pt. Name: Tracie Crain Admitted: 03/14/2019 Discharged: 03/27/2019 Date of : 1965 Physician: Timbo Black MD DISCHARGE SUMMARY HISTORY: This is a 53-year-old male who was transferred from [facility] for further management of new-onset atrial fibrillation and systolic heart failure. Over the past 2 weeks, he had been having symptoms of lower extremity swelling. He denied chest pain and was very short of breath according to the . At [facility], he was noted to have severe pulmonary venous congestion and was transferred to [facility] after echocardiogram revealed reduced left [...] section and content) DATE CREATED AUTHOR 03/18/2018 [facility] DATE CREATED AUTHOR AUTHOR'S ORGANIZ ATION 03/02/2020 [facility] DATE CREATED AUTHOR AUTHOR'S ORGANIZ ATION 02/12/2021 [facility] DATE CREATED AUTHOR AUTHOR'S ORGANIZ ATION 02/10/2023 [facility] DATE CREATED AUTHOR AUTHOR'S ORGANIZ ATION 11/11/2024 [facility] DATE CREATED AUTHOR AUTHOR'S ORGANIZ ATION 08/01/2025 [facility] Care Teams (unrecognized sec tion and content) Team MemberRelationshipSpecialtyStart DateEnd Date Titus Villegas MD [address] [place] [id number] PCP - GeneralFamily Medicine11/09/24Team MemberRelationshipSpecialtyStart DateEnd Date Titus Villegas MD [address] [place] [id number] PCP - GeneralFamily Medicine11/09/24 Reason for Visit (unrecogniz ed section and content) ReasonCommentsSleep Apnea FOR RECORDS PERTAINING TO PATIENTS WHO [...] BE BASED ON THE PRIMARY CLINICAL RECORDS. [facility]. provides no warranty or guarantee of the accuracy or completeness of information in this document.
--- NOTE | 2025-08-25 10:00 | CA_ITS ---
Patient Name: TRACIE KOCH MR#: [id number] : 1965 Exam Date: 08/25/2025 Ordering Doctor: KAI RUFFIN CNP ECHOCARDIOGRAM REPORT PROCEDURE: CA ECHO DOPPLER COMPLETE INDICATIONS: Atrial septal defect- repair COMPARISON: None. DESCRIPTION: COMPLETE ECHOCARDIOGRAM Real-time transthoracic echocardiography with 2D, M-mode, spectral and color flow Doppler performed. QUALITY: Technical quality was good. LEFT VENTRICLE: Normal chamber size. Moderate concentric left ventricular hypertrophy. LV EF: Global left ventricular systolic function is normal; visually estimated ejection fraction is 55 to 60%. Abnormal septal motion; this is not an unusual finding in the postoperative outpatient DIASTOLIC: Cannot be assessed due to mitral annuloplasty ring. ATRIAL SEPTUM: Atrial septal defect closure device appears well seated with no identified shunting. LEFT ATRIUM: Mild dilatation. RIGHT ATRIUM: Severe dilatation. RIGHT VENTRICLE: Moderate dilatation. Decreased right ventricular systolic function. TRICUSPID VALVE: Normal mobility and thickness. Moderate to severe regurgitation. Severe pulmonary hypertension. RVSP measures 62mmHg. MITRAL VALVE: Moderately thickened with decreased mobility of the posterior leaflet. Mild mitral regurgitation. Annuloplasty ring is seen in the mitral position with increased Doppler velocities. The mean gradient is 10.4 mmHg, which is increased from 8.1 mmHg from previous echo on 04/15/25. Mitral valve area by pressure half-time; 1.2 cm?. Moderate to severe mitral stenosis. Gradients may be elevated due to volume overload. AORTIC VALVE: Normal trileaflet appearance. No visible sclerosis. Normal leaflet mobility. No evidence of aortic valve stenosis. No aortic regurgitation. AORTIC ROOT: Normal diameter and appearance. PULMONIC VALVE: Normal thickness and mobility. No stenosis. Trivial regurgitation. PERICARDIUM: No evidence of pericardial effusion. CONCLUSION: 1. Global left ventricular systolic function is normal; visually estimated ejection fraction is 55 to 60% 2. Moderate left ventricular hypertrophy 3. The right ventricle is moderately dilated with reduced systolic function 4. Biatrial dilatation 5. Atrial septum defect closure device is seen with no residual shunting by color-flow 6. Moderate to severe tricuspid regurgitation 7. Severely elevated right ventricular systolic pressure; RVSP 62 mmHg 8. The mitral valve appears moderately thickened with decreased mobility of the posterior leaflet 9. An mitral annuloplasty ring is seen with increased Doppler velocities; mitral valve area and gradients consistent with moderate to severe mitral stenosis - gradients may be overestimated due to volume overload Adult Echocardiography Procedure Report Left Ventricle LVEDD (3.7 - 5.6 cm): 4.53 cm LVESD (2.2 - 4.0 cm): 3.02 cm LVIVS thickness (0.6 - 1.2 cm): 1.30 cm LVPW thickness (0.5 - 1.0 cm): 1.41 cm e': 0.07 m/s E - e': 20.28 LVOT Max Gradient: 2.98 mm[Hg] LVOT Area (cm2): 0.86 m/s Peak Velocity (LVOT): 0.86 m/s Mean Velocity (LVOT): 0.60 m/s LVOT Diameter 2.32 cm Left Ventricular Ejection Fraction: 60.72 % Left Atrium LA Volume Index (2D A2C): 44.71 ml/m2 Left Atrium Systolic Dimension: 5.04 cm Mitral Valve MV E to A Ratio: 79.43 Mitral Valve A-Wave Peak Velocity: 0.02 m/s Mitral Valve E-Wave Peak Velocity: 1.43 m/s Right Ventricle RV Internal Diastolic Dimension: 5.39 cm Aorta AO Root Diam: 3.30 cm Ascending Ao Diam: 3.00 cm Aortic Valve AoV Area (Peak Kane): 3.54 cm2, 3.54 cm2 AoV Area (VTI): 4.14 cm2, 4.14 cm2 Peak Velocity(Antegrade Flow): 1.03 m/s Peak Gradient(Antegrade Flow): 4.23 mm[Hg] Mean Velocity(Antegrade Flow): 0.77 m/s Mean Gradient(Antegrade Flow): 2.61 mm[Hg] Velocity Time Integral: 18.98 cm Tricuspid Valve Peak Velocity (Regurgitant Flow): 3.27 m/s, 3.11 m/s, 3.67 m/s Pulmonic Valve Mean Gradient: 1.71 mm[Hg] Mean Velocity: 0.63 m/s Peak Velocity: 0.82 m/s, 0.78 m/s Peak Gradient: 2.66 mm[Hg], 2.43 mm[Hg] Right Atrium Right Atrium Systolic Pressure: 135.37 ml, 135.37 ml Dictated by: Piotr Jenkins M.D. on 08/25/2025 at 17:52 Approved by: Piotr Jenkins M.D. on 08/25/2025 at 18:02
== END 2025-08-25 09:47 | disposition home or self-care (01) ==
LOC: CARD 09:46
PROVIDERS: Visit Provider Nurse Practitioner Family
DX: Z87.74 Personal history of (corrected) congenital malformations of heart and circulatory system (principal); Q21.10 Atrial septal defect, unspecified; R94.31 Abnormal electrocardiogram [ECG] [EKG]
CPT/HCPCS: 93306